=== PATIENT | female | born 1955 | race African-American/Black ===

== ENCOUNTER 2016-07-15 20:42 | Inpatient (IN) | payer MEDICARE ==
[~2016-07-15] VITALS: Ht 162.6 cm; Wt 54.9 kg
[2016-07-15] MEDS: IV NORMAL SALINE 1000ML BAG 1,000 ML IV SCH (02:00)
[~2016-07-15 20:42] MED LIST: ACET325T9 PO; AMLO10TA2 PO; AMLO5TAB4 PO; CEFP100T PO; CEFP200T PO; CHLO25TA4 PO; DOCU-27 PO; DOXY100T PO; DRON2.5C PO; DULO30CA43 PO; DULO60CA6 PO; Doxycycline Hyclate PO; FAMO20TA5 PO; FENT1PAT17 TD; FENT1PAT17 TP; FENT1PAT19 TD; FENT1PAT21 TD; FENT1PAT91 TD; FURO20TA3 PO; FURO40TA4 PO; Fentanyl TD; HYDR2TAB PO; HYDR4TAB PO; HYDR4TAB13 PO; HYOS0.12 PO; LEVO250T25 PO; LEVO750T31 PO; LEVO750T5 PO; LIDO35.4 TP; LORA-434 PO; LORA0.5T PO; METO10TA81 PO; ONDA4TAB10 PO; ONDA4TAB12 PO; ONDA8TAB9 PO; PANT40TA3 PO; PANT40TA5 PO; PHEN-373 PO; SERT50TA PO; SERT50TA8 PO; SIME180C4 PO; SIME80TA PO; SODI20VI2 IV; SULF1TAB24 PO; ZINC56.7 TP; ZOLP5TAB PO
[2016-07-15 21:48] LABS: BILIRUBIN,URINE NEGATIVE (NEG); GLUCOSE,URINE NEGATIVE (NEG); NITRITE,URINE POSITIVE (NEG); PROTEIN,URINE 30 mg/dL (NEG-TRACE); UROBILINOGEN,URINE 0.2 mg/dL (0.2 mg/dL)
[2016-07-15] MEDS: FENTANYL PF 100 MCG/2 ML VIAL. IV PRN (21:57)
[2016-07-15 21:59] LABS: BASO % 1 % (0-3); EOS % 6 % (0-3); HEMATOCRIT 33.7 % (36.0-47.0); HEMOGLOBIN 10.6 g/dL (12.0-15.5); LYMPH # 0.5 x10^3/uL (1.0-4.8); LYMPH % 14 % (24-48); MEAN CORPUSCULAR HEMOGLOBIN 25 pg (25-35); MEAN CORPUSCULAR HGB CONC 31 g/dL (31-37); MEAN CORPUSCULAR VOLUME 79 fL (79-100); MONO % 14 % (0-9); NEUT % 65 % (31-73); PLATELET COUNT 261 x10^3/uL (140-400); RED BLOOD COUNT 4.25 x10^6/uL (3.50-5.40); RED CELL DISTRIBUTION WIDTH 19.4 % (11.5-14.5); WHITE BLOOD COUNT 3.6 x10^3/uL (4.0-11.0)
[2016-07-15 22:00] LABS: BACTERIA,URINE MODERATE /HPF (0-FEW); RBC,URINE 0 /HPF (0-2); SQUAMOUS EPITHELIAL CELL,UR MOD /LPF; WBC,URINE >40 /HPF (0-4); YEAST,URINE PRESENT /HPF
[2016-07-15] MEDS ORDERED: PIPERACILLIN/TAZOBACTAM 4.5 GM in IV NORMAL SALINE 100ML 100 ML IV ONE (22:00)
[2016-07-15] MEDS ORDERED: IV NORMAL SALINE 1000ML BAG 1,000 ML IV ONE (22:00)
[2016-07-15] MEDS ORDERED: IV NORMAL SALINE 500ML BAG 500 ML IV ONE (22:00)
[2016-07-15 22:09] LABS: INR 1.3 (0.8-1.1); PROTHROMBIN TIME PATIENT 15.4 SEC (11.7-14.0)
[2016-07-15 22:14] LABS: ANION GAP 6 (6-14); BLOOD UREA NITROGEN 15 mg/dL (7-20); BUN/CREATININE RATIO 30 (6-20); CALCIUM 8.4 mg/dL (8.5-10.1); CARBON DIOXIDE 26 mmol/L (21-32); CHLORIDE 105 mmol/L (98-107); CREATININE 0.5 mg/dL (0.6-1.0); GFR 151.8; GLUCOSE 118 mg/dL (70-99); POTASSIUM 3.8 mmol/L (3.5-5.1); SODIUM 137 mmol/L (136-145)
[2016-07-15 22:20] LABS: ALBUMIN 2.2 g/dL (3.4-5.0); ALBUMIN/GLOBULIN RATIO 0.4 (1.0-1.7); ALK PHOS 112 U/L (46-116); AMYLASE 106 U/L (25-115); CREATINE KINASE 18 U/L (26-192); TOTAL BILIRUBIN 0.3 mg/dL (0.2-1.0); TOTAL PROTEIN 7.8 g/dL (6.4-8.2)
--- NOTE | 2016-07-15 22:25 | RAD ---
CT abdomen pelvis without contrast Indication: Abdominal pain. Axial imaging of the abdomen pelvis was performed without contrast. Patient reportedly has a severe iodine allergy. Comparison is made with prior CT from 12/22/2015. The prior report is not available for comparison. The lung bases are clear. Evaluation of the abdomen and pelvis is limited without intravenous contrast. No discrete liver mass is detected. The spleen is unremarkable. Gallbladder appears to be surgically absent. The pancreas is poorly visualized. No definite adrenal mass is seen. No renal calculi or hydronephrosis is seen. The aorta appears to be normal caliber. Postsurgical changes in the midline abdominal wall is noted. There are postsurgical changes involving multiple bowel loops in the central abdomen with clips and suture material present. There are numerous surgical clips in the pelvis. There is a paucity of intra-abdominal fat, making evaluation difficult. It is very difficult to separate small from large bowel. The overall degree of bowel distention appears to be similar to prior CT from last December. No free air is seen. No free fluid or fluid collection is identified. Bladder is unremarkable. Impression: Compromised study due to absence of intravenous and oral contrast. The overall appearance to the abdomen pelvis appears to be similar to the CT from December 22, 2015. No definite free air, free fluid or fluid collection is identified. No abnormal collections of gas are detected. Electronically signed by: Amanuel Carbajal MD (Jul 15, 2016 22:23:46)
[2016-07-15 22:33] LABS: ALT (SGPT) 10 U/L (14-59); AST (SGOT) 10 U/L (15-37)
[2016-07-15 22:35] LABS: % EOS 9 % (0-5); ANISOCYTOSIS SLIGHT; HYPOCHROMIA SLIGHT; PLT ESTIMATE ADEQUATE (ADEQUATE); POLYCHROMASIA SLIGHT; SPHEROCYTES OCC
--- NOTE | 2016-07-15 23:20 | PHYS DOC ---
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 Over the last few hours she's developed chills. Patient and family state that she had 101 fever prior to arrival was given Motrin and fever broke. She states the fever started yesterday. She states she was admitted about 3 weeks ago for similar symptoms. She states she recently had the flu. [] Review of Systems Review of Systems Constitutional: Denies fever or chills [] Eyes: Denies change in visual acuity, redness, or eye pain [] HENT: Denies nasal congestion or sore throat [] Respiratory: Denies cough or shortness of breath [] Cardiovascular: No additional information not addressed in HPI [] GI: Per history of present illness [] : Per history of present illness Musculoskeletal: Denies back pain or joint pain [] Integument: Denies rash or skin lesions [] Neurologic: Denies headache, focal weakness or sensory changes [] Endocrine: Denies polyuria or polydipsia [] Current Medications Current Medications Current Medications Medications (Trade) Dose Ordered Sig/Alex Start Time Stop Time Status Last Admin Dose Admin Acetaminophen (Tylenol) 650 mg PRN Q4HRS PRN 07/15/16 23:30 07/16/16 23:29 Fentanyl Citrate 50 mcg 50 mcg PRN Q2HR PRN 07/15/16 23:30 07/16/16 08:52 DC 07/16/16 08:10 50 MCG Ondansetron HCl (Zofran) 4 mg PRN Q8HRS PRN 07/15/16 23:30 07/16/16 08:52 DC Piperacillin Sod/ Tazobactam Sod 4.5 gm/Sodium Chloride 100 ml @ 200 mls/hr 1X ONCE 07/15/16 22:00 07/15/16 22:29 DC 07/15/16 22:56 200 MLS/HR Sodium Chloride (Iv Sodium Chloride 0.9% 500ml Bag) 500 ml @ 500 mls/hr 1X ONCE 07/15/16 22:00 07/15/16 22:59 DC 07/15/16 22:00 500 MLS/HR Sodium Chloride (Iv Sodium Chloride 0.9% 1000ml Bag) 1,000 ml @ 150 mls/hr Q6H40M 07/15/16 23:45 07/16/16 08:52 DC 07/15/16 02:00 150 MLS/HR Allergies Allergies Allergies Coded Allergies Type Severity Reaction Last Updated Verified Iodinated Contrast Media - Oral and Allergy Severe Anaphylaxis 12/05/15 Yes vancomycin Allergy Severe Swelling 12/05/15 Yes adhesive tape Allergy Intermediate Rash 12/05/15 Yes silver Allergy Intermediate Rash, Tegaderm film, can have on abd but no where else 12/05/15 Yes codeine Adverse Reaction Severe Nausea and Vomiting 12/11/15 Yes Physical Exam Physical Exam Constitutional: Well developed, well nourished, moderate distress, acutely ill. [] HENT: Normocephalic, atraumatic, bilateral external ears normal, oropharynx moist, no oral exudates, nose normal. [] Eyes: PERRLA, EOMI, conjunctiva normal, no discharge. [] Neck: Normal range of motion, no tenderness, supple, no stridor. [] Cardiovascular:Heart rate regular rhythm, no murmur [] Lungs & Thorax: Bilateral breath sounds clear to auscultation [] Abdomen: Bowel sounds normal, soft, no tenderness, no masses, no pulsatile masses. [] Skin: Warm, dry, no erythema, no rash. [] Back: No tenderness, no CVA tenderness. [] Extremities: No tenderness, no cyanosis, no clubbing, ROM intact, no edema. [] Neurologic: Alert and oriented X 3, normal motor function, normal sensory function, no focal deficits noted. [] Psychologic: Very anxious Current Patient Data Vital Signs Vital Signs Date Time Temp Pulse Resp B/P Pulse Ox O2 Delivery O2 Flow Rate FiO2 07/15/16 23:00 98.6 92 20 150/67 100 Room Air 98.6 Lab Values Laboratory Tests Test 07/15/16 21:20 07/15/16 21:50 Urine Collection Type Unknown Urine Color Yellow Urine Clarity Cloudy Urine pH 6.0 Urine Specific [place] 1.025 Urine Protein 30mg/dL (NEG-TRACE) Urine Glucose (UA) Negativemg/dL (NEG) Urine Ketones (Stick) Negativemg/dL (NEG) Urine Blood Moderate (NEG) Urine Nitrite Positive (NEG) Urine Bilirubin Negative (NEG) Urine Urobilinogen Dipstick 0.2mg/dL (0.2 mg/dL) Urine Leukocyte Esterase Large (NEG) Urine RBC 0/HPF (0-2) Urine WBC >40/HPF (0-4) Urine Squamous Epithelial Cells Mod/LPF Urine Bacteria Moderate/HPF (0-FEW) Urine Mucus Mod/LPF Urine Yeast Present/HPF White Blood Count 3.6x10^3/uL (4.0-11.0) L Red Blood Count 4.25x10^6/uL (3.50-5.40) Hemoglobin 10.6g/dL (12.0-15.5) L Hematocrit 33.7% (36.0-47.0) L Mean Corpuscular Volume 79fL (79-100) Mean Corpuscular Hemoglobin 25pg (25-35) Mean Corpuscular Hemoglobin Concent 31g/dL (31-37) Red Cell Distribution Width 19.4% (11.5-14.5) H Platelet Count 261x10^3/uL (140-400) Neutrophils (%) (Auto) 65% (31-73) Lymphocytes (%) (Auto) 14% (24-48) L Monocytes (%) (Auto) 14% (0-9) H Eosinophils (%) (Auto) 6% (0-3) H Basophils (%) (Auto) 1% (0-3) Neutrophils # (Auto) 2.3x10^3uL (1.8-7.7) Lymphocytes # (Auto) 0.5x10^3/uL (1.0-4.8) L Monocytes # (Auto) 0.5x10^3/uL (0.0-1.1) Eosinophils # (Auto) 0.2x10^3/uL (0.0-0.7) Basophils # (Auto) 0.0x10^3/uL (0.0-0.2) Segmented Neutrophils % 53% (35-66) Band Neutrophils % 9% (0-9) Lymphocytes % 15% (24-48) L Monocytes % 12% (0-10) H Eosinophils % 9% (0-5) H Metamyelocytes % 1% (0-0) H Myelocytes % 1% (0-0) H Platelet Estimate Adequate (ADEQUATE) Polychromasia Slight Hypochromasia Slight Anisocytosis Slight Spherocytes Occ Prothrombin Time 15.4SEC (11.7-14.0) H Prothrombin Time INR 1.3 (0.8-1.1) H PTT 39SEC (24-38) H Sodium Level 137mmol/L (136-145) Potassium Level 3.8mmol/L (3.5-5.1) Chloride Level 105mmol/L (98-107) Carbon Dioxide Level 26mmol/L (21-32) Anion Gap 6 (6-14) Blood Urea Nitrogen 15mg/dL (7-20) Creatinine 0.5mg/dL (0.6-1.0) L Estimated GFR (Cockcroft-Gault) 151.8 BUN/Creatinine Ratio 30 (6-20) H Glucose Level 118mg/dL (70-99) H Lactic Acid Level 1.2mmol/L (0.4-2.0) Calcium Level 8.4mg/dL (8.5-10.1) L Total Bilirubin 0.3mg/dL (0.2-1.0) Aspartate Amino Transferase (AST) 10U/L (15-37) L Alanine Aminotransferase (ALT) 10U/L (14-59) L Alkaline Phosphatase 112U/L (46-116) Creatine Kinase 18U/L (26-192) L Total Protein 7.8g/dL (6.4-8.2) Albumin 2.2g/dL (3.4-5.0) L Albumin/Globulin Ratio 0.4 (1.0-1.7) L Amylase Level 106U/L (25-115) Lipase 129U/L (73-393) Procalcitonin < 0.05ng/mL (0.00-0.10) Laboratory Tests 07/15/16 21:50 Laboratory Tests 07/15/16 21:50 Microbiology 07/15/16 Blood Culture - Preliminary, Resulted NO GROWTH AFTER 1 DAY EKG EKG [] Radiology/Procedures Radiology/Procedures [] Impressions: PROCEDURE: ABDOMEN PELVIS WO CONTRAST CT abdomen pelvis without contrast Indication: Abdominal pain. Axial imaging of the abdomen pelvis was performed without contrast. Patient reportedly has a severe iodine allergy. Comparison is made with prior CT from 12/22/2015. The prior report is not available for comparison. The lung bases are clear. Evaluation of the abdomen and pelvis is limited without intravenous contrast. No discrete liver mass is detected. The spleen is unremarkable. Gallbladder appears to be surgically absent. The pancreas is poorly visualized. No definite adrenal mass is seen. No renal calculi or hydronephrosis is seen. The aorta appears to be normal caliber. Postsurgical changes in the midline abdominal wall is noted. There are postsurgical changes involving multiple bowel loops in the central abdomen with clips and suture material present. There are numerous surgical clips in the pelvis. There is a paucity of intra-abdominal fat, making evaluation difficult. It is very difficult to separate small from large bowel. The overall degree of bowel distention appears to be similar to prior CT from last December. No free air is seen. No free fluid or fluid collection is identified. Bladder is unremarkable. Impression: Compromised study due to absence of intravenous and oral contrast. The overall appearance to the abdomen pelvis appears to be similar to the CT from December 22, 2015. No definite free air, free fluid or fluid collection is identified. No abnormal collections of gas are detected. Course & Med Decision Making Course & Med Decision Making Pertinent Labs and Imaging studies reviewed. (See chart for details) CRITICAL CARE time was 30 minutes - time exclusive of any procedures performed. Care included medical management, x-ray/lab interpretation, discussions with the patient and their family as well as appropriate medical consultants. ED course: Evaluation reveals a acute on chronically ill female with abdominal pain and dysuria. CT scan was unchanged from that a year ago. Patient was given IV fluids and IV Rocephin and pain medication which did help alleviate her symptoms. However given her degree of pain that was not completely resolved in the department feel the patient needs inpatient hospitalization. Dragon Disclaimer Dragon Disclaimer This electronic medical record was generated, in whole or in part, using a voice recognition dictation system. Departure Departure Impression: Primary Impression: Urinary tract infection Additional Impressions: Enterocutaneous fistula Abdominal pain Disposition: ADMITTED INPATIENT Condition: STABLE Referrals: BENITA LUTZ MD (PCP) Problem Qualifiers Primary Impression: Urinary tract infection Urinary tract infection type: site unspecified Hematuria presence: without hematuria Qualified Code: N39.0 - Urinary tract infection, site not specified Additional Impressions: Abdominal pain Abdominal location: generalized Qualified Code: R10.84 - Generalized abdominal pain ERNESTO PETTY DO Jul 15, 2016 23:20
[2016-07-15] MEDS ORDERED: ONDANSETRON PF 4 MG/2 ML VIAL. IV PRN (23:30)
[2016-07-15] MEDS ORDERED: ACETAMINOPHEN 325 MG TABLET. PO PRN (23:30)
[2016-07-16] VITALS (7 sets, daily range): BP systolic 109–179; BP diastolic 48–87
--- NOTE | 2016-07-16 00:20 | ACF ---
Admission Forms Criteria ABDOMINAL PAIN Clinical Indications for Admission to Inpatient Care (Place 'X' for any and all applicable criteria): Admission is indicated for ANY ONE of the following(1)(2)(3)(4)(5): [X]I. Inpatient admission required rather than observation care (Also use Abdominal Pain: Observation Care, as appropriate) because of ANY ONE of the following: [X]a) Severe pain requiring acute inpatient management [ ]b) Identification of etiology/finding that requires inpatient care (eg, aortic dissection, free air) [ ]c) Absent bowel sounds with complete ileus(6) [ ]d) Suspected toxic megacolon [ ]e) Severe electrolyte abnormalities requiring inpatient care [ ]f) High fever or infection requiring inpatient admission as indicated by ANY ONE of following(7)(8): [ ] i) Appropriate outpatient or observational care antimicrobial treatment unavailable, not effective, or not feasible [ ] ii) Documented bacteremia [ ] iii) Temperature > 104.9 degrees F (oral) [ ] iv) T >103.1 F (oral) or < 96.8 F(rectal) that does not respond to all emergency treatment measures [ ]g) Signs of intestinal obstruction [B] [ ]h) Hemodynamic instability [ ]i) IV fluid to replace significant ongoing losses (greater than 3 L/m2 per day) (12)(13) [ ]j) Percutaneous or open drainage (eg, abscess, biliary tract ) procedures [ ]k) Parenteral nutrition regimen that must be implemented on inpatient basis [ ]l) Other condition,treatment or monitoring requiring inpatient admission. [ ]II. Peritoneal signs present [ ]III. Surgery needed that cannot be performed on an ambulatory basis. [ ]IV. Evaluation requires patient to not eat or drink for extended period ( eg, more than 24 hours). [ ]V. Contraindications and/or Inappropriate clinical situations for Observational Care in patients with abdominal pain, when ANY ONE of the following is required: [ ]a) Thorough evaluation is required to prevent catastrophic events due to delays in diagnosing (e.g.Mesenteric ischemia) 1,3 [ ]b) Patient with severe pathology or with chronic symptoms unlikely to improve in the ED stay (3) [ ]. General contraindications and/or Inappropriate clinical situations for Observational Care in patients with abdominal pain, when ANY ONE of the following is required: [ ]a) Prediction of prolongation of LOS based on ANY ONE of the following may be considered as a contraindication for observational care 2, 3, 4, 5, 6, 7, 8, 9, 10, 11 [ ]i) Age > 65 yrs. [ ]ii) Patient arriving by ambulance [ ]iii) Patient with high acuity [ ]iv) Patient requiring vital sign monitoring [ ]v) Patient on IV medication [ ]b) Systolic blood pressures 180mmHg 3,12 [ ]c) Patient with altered mental status including delirium and other alteration of consciousness, (3) [ ]d) Patient whose discharge disposition will be to a penitentiary home or rehabilitation home should not be managed in Emergency Department Observation Unit. CMS rule requires 3 days hospital stay before such placement.3,13 [ ]e) Patient with failure to thrive due to broad array of etiologies 3,16,17 [ ]f) Inability to ambulate 3,14 Extended stay beyond goal length of stay may be needed for(2)(3): [ ]a) Persistent abdominal pain with suspected intra-abdominal process [ ]b) Diagnosed condition requiring continued stay (e.g., pancreatitis, complicated diverticulitis) [ ]c) Surgery (e.g., colectomy) The original [facility] content created by [employer] has been revised. The portions of the content which have been revised are identified through the use of italic text or in bold, and [facility] has neither reviewed nor approved the modified material.All other unmodified content is copyright [facility]. Please see references footnoted in the original [facility] edition 2016 Admission Criteria Met?: Yes MEKA VELIZ Jul 16, 2016 00:20
[2016-07-16] MEDS: FENTANYL PF 100 MCG/2 ML VIAL. IV PRN ×5 (00:30→08:10)
[2016-07-16] MEDS ORDERED: INFLUENZA VAX SCREEN BY RX. MC PRN (03:00)
[2016-07-16] MEDS: IV NORMAL SALINE 1000ML BAG 1,000 ML IV SCH (06:25)
--- NOTE | 2016-07-16 07:50 | RAD ---
Indication: Fever and cough for one day. Technique: Upright portable chest radiograph was obtained. Comparison is from June 24, 2016. Findings: Right PICC line is in place. The lungs are clear. The heart is not enlarged and there is no heart failure. There is minimal atheromatous disease in the thoracic aorta. Bony structures are intact. Impression: No acute thoracic findings.
--- NOTE | 2016-07-16 08:37 | PDOC ---
Provider Note Provider Note history and physical dictated # [id number] BENITA LUTZ MD Jul 16, 2016 08:37
[2016-07-16] MEDS ORDERED: POTASSIUM CL 20MEQ D5-0.45NACL 1,000 ML IV SCH (09:30)
--- NOTE | 2016-07-16 09:38 | PDOC ---
Infectious Disease Note Subjective Subjective Pt known to us, returned with abd pain, fever and chills, painful urination ROS ROS GEN: fevers, chills, sweats HEENT: Denies blurred vision, sore throat CV: Denies chest pain RESP: Denies shortness of air, cough GI: Denies n/v/d NEURO: Denies confusion, dizziness MSK: Denies weakness, joint pain/swelling Vital Sign Vital Signs Vital Signs Date Time Temp Pulse Resp B/P Pulse Ox O2 Delivery O2 Flow Rate FiO2 07/16/16 08:10 99 Room Air 07/16/16 07:00 98.7 91 18 109/62 98.7 Physical Exam PHYSICAL EXAM GENERAL: NAD, Alert HEENT: PERRL, OC/OP NECK: Supple, no JVD, no LN LUNGS: Clear HEART: S1S2, no gallop, no murmur ABD: Soft, NT, no organomegaly, no rebound,, EC fistula with extensive excoriation EXT: No edema, no cyanosis FELT PAD CUTTER: Alert, oriented x 3, no focal neurologic deficit SKIN: No rash IV: line ok Labs Lab Laboratory Tests Test 07/15/16 21:20 07/15/16 21:50 Urine Collection Type Unknown Urine Color Yellow Urine Clarity Cloudy Urine pH 6.0 Urine Specific [place] 1.025 Urine Protein 30mg/dL (NEG-TRACE) Urine Glucose (UA) Negativemg/dL (NEG) Urine Ketones (Stick) Negativemg/dL (NEG) Urine Blood Moderate (NEG) Urine Nitrite Positive (NEG) Urine Bilirubin Negative (NEG) Urine Urobilinogen Dipstick 0.2mg/dL (0.2 mg/dL) Urine Leukocyte Esterase Large (NEG) Urine RBC 0/HPF (0-2) Urine WBC >40/HPF (0-4) Urine Squamous Epithelial Cells Mod/LPF Urine Bacteria Moderate/HPF (0-FEW) Urine Mucus Mod/LPF Urine Yeast Present/HPF White Blood Count 3.6x10^3/uL (4.0-11.0) Red Blood Count 4.25x10^6/uL (3.50-5.40) Hemoglobin 10.6g/dL (12.0-15.5) Hematocrit 33.7% (36.0-47.0) Mean Corpuscular Volume 79fL (79-100) Mean Corpuscular Hemoglobin 25pg (25-35) Mean Corpuscular Hemoglobin Concent 31g/dL (31-37) Red Cell Distribution Width 19.4% (11.5-14.5) Platelet Count 261x10^3/uL (140-400) Neutrophils (%) (Auto) 65% (31-73) Lymphocytes (%) (Auto) 14% (24-48) Monocytes (%) (Auto) 14% (0-9) Eosinophils (%) (Auto) 6% (0-3) Basophils (%) (Auto) 1% (0-3) Neutrophils # (Auto) 2.3x10^3uL (1.8-7.7) Lymphocytes # (Auto) 0.5x10^3/uL (1.0-4.8) Monocytes # (Auto) 0.5x10^3/uL (0.0-1.1) Eosinophils # (Auto) 0.2x10^3/uL (0.0-0.7) Basophils # (Auto) 0.0x10^3/uL (0.0-0.2) Segmented Neutrophils % 53% (35-66) Band Neutrophils % 9% (0-9) Lymphocytes % 15% (24-48) Monocytes % 12% (0-10) Eosinophils % 9% (0-5) Metamyelocytes % 1% (0-0) Myelocytes % 1% (0-0) Platelet Estimate Adequate (ADEQUATE) Polychromasia Slight Hypochromasia Slight Anisocytosis Slight Spherocytes Occ Prothrombin Time 15.4SEC (11.7-14.0) Prothromb Time International Ratio 1.3 (0.8-1.1) Activated Partial Thromboplast Time 39SEC (24-38) Sodium Level 137mmol/L (136-145) Potassium Level 3.8mmol/L (3.5-5.1) Chloride Level 105mmol/L (98-107) Carbon Dioxide Level 26mmol/L (21-32) Anion Gap 6 (6-14) Blood Urea Nitrogen 15mg/dL (7-20) Creatinine 0.5mg/dL (0.6-1.0) Estimated GFR (Cockcroft-Gault) 151.8 BUN/Creatinine Ratio 30 (6-20) Glucose Level 118mg/dL (70-99) Lactic Acid Level 1.2mmol/L (0.4-2.0) Calcium Level 8.4mg/dL (8.5-10.1) Total Bilirubin 0.3mg/dL (0.2-1.0) Aspartate Amino Transf (AST/SGOT) 10U/L (15-37) Alanine Aminotransferase (ALT/SGPT) 10U/L (14-59) Alkaline Phosphatase 112U/L (46-116) Creatine Kinase 18U/L (26-192) Total Protein 7.8g/dL (6.4-8.2) Albumin 2.2g/dL (3.4-5.0) Albumin/Globulin Ratio 0.4 (1.0-1.7) Amylase Level 106U/L (25-115) Lipase 129U/L (73-393) Procalcitonin < 0.05ng/mL (0.00-0.10) Objective Assessment Fever and chills EC fistula Enterovesicular fistula Abdominal excoriation Plan Plan of Care zyvox and cefepime diflucan d/w JOSSY Szymanski MD Jul 16, 2016 09:38
[2016-07-16] MEDS: PANTOPRAZOLE 40 MG TABLET. PO SCH (10:54)
[2016-07-16] MEDS: PHENAZOPYRIDINE 200 MG TABLET. PO SCH ×3 (10:54→21:01)
[2016-07-16] MEDS: HYDROMORPHONE 2 MG/ML VIAL. IV PRN ×3 (10:55→21:02)
[2016-07-16] MEDS: PIPERACILLIN/TAZOBACTAM 3.375 GM in IV NORMAL SALINE 50ML 50 ML IV SCH ×2 (10:56→17:11)
--- NOTE | 2016-07-16 12:03 | HP ---
ADMIT DATE: 07/16/2016 LOCATION: She is in room 669. HISTORY OF PRESENT ILLNESS: The patient is a 61-year-old female with an enterocutaneous fistula and enterovesical fistula, maintained on home TPN via a PICC line, who has anemia of chronic disease and was admitted to [facility] through the Emergency Room on 07/15/2016 with the onset of fever around 4:00 in the afternoon yesterday. She also noted some dysuria and some pain in her lower abdomen with urinating. Her temperature spiked to 101.5 degrees. She took ibuprofen and Tylenol and came to the Emergency Room for further evaluation where a CAT scan of the abdomen and pelvis was done which showed no acute abnormality. Urinalysis showed pyuria and she was started on IV antibiotics. She still complains of dysuria and lower abdominal discomfort when urinating. ALLERGIES AND INTOLERANCES: Include the adhesive tape, IV iodine, codeine, silver and IV vancomycin. MEDICATIONS: Prior to admission include, she uses lidocaine 5% ointment b.i.d. followed by zinc oxide 20% ointment b.i.d. to her abdominal wall, lorazepam 0.5 mg b.i.d. p.r.n., Protonix 40 mg every day and also takes sertraline 100 mg everyday, Ambien 5 mg at bedtime p.r.n. and she is maintained on TPN at 80 mL an hour. PAST HISTORY: Significant for hospitalization, at which time she was dismissed on 06/29/2016 with sepsis and she had an E. coli urinary tract infection, influenza type B at that time. She has an enterocutaneous fistula, enterovesical fistula. She has [id number] protein calorie malnutrition. She has a history of an appendectomy, cholecystectomy, tonsillectomy, jejunostomy in the past and hysterectomy. She has had 5 abdominal fistula repairs, all of which have failed. She has a history of depression and diverticulosis and recurrent sepsis. She is maintained on home TPN via PICC line. SOCIAL HISTORY: She does not drink alcohol nor does she smoke cigarettes. She is followed by home health. FAMILY HISTORY: Noncontributory. REVIEW OF SYSTEMS: GENERAL: She had the fever and chills. CARDIOVASCULAR: No chest pain. PULMONARY: No cough or shortness of breath. GASTROINTESTINAL: No constipation. GENITOURINARY: She has dysuria, bladder spasms. ENDOCRINE: No diabetes mellitus. SKIN: No rashes. She does have an enterocutaneous fistula. The rest of systems reviewed are negative except as stated in the history of present illness. PHYSICAL EXAMINATION: VITAL SIGNS: Temperature is 98.7 degrees, pulse 91, respiratory rate 18, blood pressure 109/62, oxygen saturation 98% on room air. HEENT: Eyes: Gaze is conjugate. Extraocular muscles are intact. Mouth: Tongue is midline. NECK: There is no cervical lymphadenopathy or thyroid enlargement. She got a PICC line in the right side. HEART: Reveals an S1, S2. There is no S3 or murmur. LUNGS: Clear. ABDOMEN: Soft. She got enterocutaneous fistula drainage on the abdominal wall with some chronic excoriation of the abdominal wall. It is nontender and not distended. EXTREMITIES: Lower extremities without edema. SKIN: No rashes. NEUROLOGIC: Revealed no focal weakness of the extremities or facial asymmetry. LABORATORY DATA: White count 3.6, hemoglobin 10.6, platelet count ,000, 65 polys and 14 lymphocytes. INR 1.3, PTT of 39. Sodium 137, potassium 3.8, chloride 105, total CO2 of 26, BUN of 15, creatinine 0.5, blood sugar 118. The liver function tests were normal. Albumin 2.2. Amylase and lipase were normal. Procalcitonin was less than 0.05. Urinalysis showed greater than 40 white cells and no red blood cells. She also had a chest x-ray done which showed no acute abnormality and a right-sided PICC line was noted. She also had a CAT scan of the abdomen and pelvis done, which showed no acute abnormality with post-surgical changes, no evidence of bowel obstruction and no abnormal fluid collection or gas collections. IMPRESSION: 1. Urinary tract infection. 2. Bladder spasms. 3. Fever. 4. Enterocutaneous fistula. 5. Enterovesical fistula. 6. Anemia of chronic disease. 7. Moderately severe protein calorie malnutrition. PLAN: At this time is to consult Dr. Garcia Suggs for infectious disease. Wait for the results of blood and urine cultures. She got a dose of IV Zosyn in the Emergency Room and we will switch her to cefepime 1 gram IV q. 12 hours instead of the Zosyn. We will also repeat her labs tomorrow. Start her on TPN, start her some Dilaudid 4 mg IV every 6 hours p.r.n. for the pain and start her on some Pyridium for the dysuria as well as Levsin for the bladder spasms on schedule. Again, start her on her TPN. BENITA LUTZ MD DR: NABILA/jd JOB#: [id number] / [id number]
[2016-07-16] MEDS: TPN PER PHARMACY MC PRN (12:42)
[2016-07-16] MEDS: HYOSCYAMINE 0.125 MG TAB.RAPDIS PO SCH ×2 (12:43→17:11)
[2016-07-16] MEDS: FLUCONAZOLE 200MG/100ML PREMIX 100 ML IV SCH (13:51)
[2016-07-16] MEDS: ONDANSETRON PF 4 MG/2 ML VIAL. IV PRN (17:11)
[2016-07-16] MEDS: DIPHENHYDRAMINE HCL 25 MG CAPSULE PO PRN (17:56)
[2016-07-16] MEDS: ZOLPIDEM 5 MG TABLET. PO PRN (21:01)
[2016-07-16] MEDS ORDERED: [UNRECOGNIZED DRUG - OTHER] IV SCH ×12 (22:00)
[2016-07-16] MEDS ORDERED: AMINO ACID IV SCH ×12 (22:00)
[2016-07-16] MEDS ORDERED: TOTAL PARENTERAL NUTRITION IV SCH ×24 (22:00)
[2016-07-16] MEDS ORDERED: DEXTROSE 70% IV SCH ×24 (22:00)
[2016-07-16] MEDS ORDERED: AMINO ACIDS IV SCH ×12 (22:00)
[2016-07-16] MEDS ORDERED: [UNRECOGNIZED DRUG - OTHER] IV SCH ×12 (22:00)
[2016-07-17] VITALS (7 sets, daily range): BP systolic 100–175; BP diastolic 60–95
[2016-07-17] MEDS: HYOSCYAMINE 0.125 MG TAB.RAPDIS PO SCH ×5 (00:45→23:59)
[2016-07-17] MEDS: PIPERACILLIN/TAZOBACTAM 3.375 GM in IV NORMAL SALINE 50ML 50 ML IV SCH ×4 (00:45→18:23)
[2016-07-17] MEDS: LORAZEPAM 0.5 MG TABLET. PO PRN ×3 (00:45→19:07)
[2016-07-17] MEDS: HYDROMORPHONE 2 MG/ML VIAL. IV PRN ×6 (01:19→23:38)
[2016-07-17 06:12] LABS: BASO % 1 % (0-3); EOS % 4 % (0-3); HEMATOCRIT 36.2 % (36.0-47.0); HEMOGLOBIN 11.2 g/dL (12.0-15.5); LYMPH # 0.4 x10^3/uL (1.0-4.8); LYMPH % 9 % (24-48); MEAN CORPUSCULAR HEMOGLOBIN 25 pg (25-35); MEAN CORPUSCULAR HGB CONC 31 g/dL (31-37); MEAN CORPUSCULAR VOLUME 79 fL (79-100); MONO % 10 % (0-9); NEUT % 77 % (31-73); PLATELET COUNT 222 x10^3/uL (140-400); RED BLOOD COUNT 4.55 x10^6/uL (3.50-5.40); RED CELL DISTRIBUTION WIDTH 18.9 % (11.5-14.5); WHITE BLOOD COUNT 4.5 x10^3/uL (4.0-11.0)
[2016-07-17 06:43] LABS: CALCIUM 8.7 mg/dL (8.5-10.1); CREATININE 0.7 mg/dL (0.6-1.0); GFR 102.9; MAGNESIUM 1.9 mg/dL (1.8-2.4); POTASSIUM 4.2 mmol/L (3.5-5.1)
[2016-07-17] MEDS: PANTOPRAZOLE 40 MG TABLET. PO SCH (08:05)
[2016-07-17] MEDS: PHENAZOPYRIDINE 200 MG TABLET. PO SCH ×3 (08:05→20:43)
--- NOTE | 2016-07-17 08:16 | PDOC ---
PROGRESS NOTES Subjective Subjective feels better. still has some discomfort with voiding. temp 99.2. lab reviewed. blood cultures negative so far. urine culture pending. started TPN. Objective Objective Vital Signs Date Time Temp Pulse Resp B/P Pulse Ox O2 Delivery O2 Flow Rate FiO2 07/17/16 07:20 102 18 118/60 95 Room Air 07/17/16 03:00 99.2 99.2 Intake and Output 07/17/16 07:00 Intake Total 1650 ml Output Total 600 ml Balance 1050 ml Intake Oral 1450 ml IV Total 200 ml Urine/Stool Mix 600 ml # Voids 6 # Bowel Movements 6 Physical Exam Abdomen: Soft, Other (enterocutaneous fistula with yellow drainage) Heart: Regular rate, Normal S1, Normal S2 Extremities: No edema General: Alert HEENT: Atraumatic Lungs: Clear to auscultation Neuro: Normal speech Psych/Mental Status: Mental status NL Skin: No rashes Assessment Assessment Problems Medical Problems:1. Urinary tract infection. 2. Bladder spasms. 3. Fever.better 4. Enterocutaneous fistula. 5. Enterovesical fistula. 6. Anemia of chronic disease. 7. Moderately severe protein calorie malnutrition. (1) Abdominal pain Status: Acute (2) Enterocutaneous fistula Status: Acute (3) Sepsis Status: Acute (4) Urinary tract infection Status: Acute (5) UTI (urinary tract infection) Status: Acute Plan Plan of Care continue iv zyvox adn zosyn awailt blood and urine cultures continue TPN continue pyridium and levsin iv dilaudid prn Comment Review of Relevant I have reviewed the following items lucila (where applicable) has been applied. Labs Laboratory Tests Test 07/15/16 21:20 07/15/16 21:50 07/17/16 06:00 Urine Collection Type Unknown Urine Color Yellow Urine Clarity Cloudy Urine pH 6.0 Urine Specific [place] 1.025 Urine Protein 30mg/dL (NEG-TRACE) Urine Glucose (UA) Negativemg/dL (NEG) Urine Ketones (Stick) Negativemg/dL (NEG) Urine Blood Moderate (NEG) Urine Nitrite Positive (NEG) Urine Bilirubin Negative (NEG) Urine Urobilinogen Dipstick 0.2mg/dL (0.2 mg/dL) Urine Leukocyte Esterase Large (NEG) Urine RBC 0/HPF (0-2) Urine WBC >40/HPF (0-4) Urine Squamous Epithelial Cells Mod/LPF Urine Bacteria Moderate/HPF (0-FEW) Urine Mucus Mod/LPF Urine Yeast Present/HPF White Blood Count 3.6x10^3/uL (4.0-11.0) 4.5x10^3/uL (4.0-11.0) Red Blood Count 4.25x10^6/uL (3.50-5.40) 4.55x10^6/uL (3.50-5.40) Hemoglobin 10.6g/dL (12.0-15.5) 11.2g/dL (12.0-15.5) Hematocrit 33.7% (36.0-47.0) 36.2% (36.0-47.0) Mean Corpuscular Volume 79fL (79-100) 79fL (79-100) Mean Corpuscular Hemoglobin 25pg (25-35) 25pg (25-35) Mean Corpuscular Hemoglobin Concent 31g/dL (31-37) 31g/dL (31-37) Red Cell Distribution Width 19.4% (11.5-14.5) 18.9% (11.5-14.5) Platelet Count 261x10^3/uL (140-400) 222x10^3/uL (140-400) Neutrophils (%) (Auto) 65% (31-73) 77% (31-73) Lymphocytes (%) (Auto) 14% (24-48) 9% (24-48) Monocytes (%) (Auto) 14% (0-9) 10% (0-9) Eosinophils (%) (Auto) 6% (0-3) 4% (0-3) Basophils (%) (Auto) 1% (0-3) 1% (0-3) Neutrophils # (Auto) 2.3x10^3uL (1.8-7.7) 3.5x10^3uL (1.8-7.7) Lymphocytes # (Auto) 0.5x10^3/uL (1.0-4.8) 0.4x10^3/uL (1.0-4.8) Monocytes # (Auto) 0.5x10^3/uL (0.0-1.1) 0.4x10^3/uL (0.0-1.1) Eosinophils # (Auto) 0.2x10^3/uL (0.0-0.7) 0.2x10^3/uL (0.0-0.7) Basophils # (Auto) 0.0x10^3/uL (0.0-0.2) 0.0x10^3/uL (0.0-0.2) Segmented Neutrophils % 53% (35-66) Band Neutrophils % 9% (0-9) Lymphocytes % 15% (24-48) Monocytes % 12% (0-10) Eosinophils % 9% (0-5) Metamyelocytes % 1% (0-0) Myelocytes % 1% (0-0) Platelet Estimate Adequate (ADEQUATE) Polychromasia Slight Hypochromasia Slight Anisocytosis Slight Spherocytes Occ Prothrombin Time 15.4SEC (11.7-14.0) Prothromb Time International Ratio 1.3 (0.8-1.1) Activated Partial Thromboplast Time 39SEC (24-38) Sodium Level 137mmol/L (136-145) 136mmol/L (136-145) Potassium Level 3.8mmol/L (3.5-5.1) 4.2mmol/L (3.5-5.1) Chloride Level 105mmol/L (98-107) 105mmol/L (98-107) Carbon Dioxide Level 26mmol/L (21-32) 23mmol/L (21-32) Anion Gap 6 (6-14) 8 (6-14) Blood Urea Nitrogen 15mg/dL (7-20) 12mg/dL (7-20) Creatinine 0.5mg/dL (0.6-1.0) 0.7mg/dL (0.6-1.0) Estimated GFR (Cockcroft-Gault) 151.8 102.9 BUN/Creatinine Ratio 30 (6-20) Glucose Level 118mg/dL (70-99) 114mg/dL (70-99) Lactic Acid Level 1.2mmol/L (0.4-2.0) 1.3mmol/L (0.4-2.0) Calcium Level 8.4mg/dL (8.5-10.1) 8.7mg/dL (8.5-10.1) Total Bilirubin 0.3mg/dL (0.2-1.0) Aspartate Amino Transf (AST/SGOT) 10U/L (15-37) Alanine Aminotransferase (ALT/SGPT) 10U/L (14-59) Alkaline Phosphatase 112U/L (46-116) Creatine Kinase 18U/L (26-192) Total Protein 7.8g/dL (6.4-8.2) Albumin 2.2g/dL (3.4-5.0) Albumin/Globulin Ratio 0.4 (1.0-1.7) Amylase Level 106U/L (25-115) Lipase 129U/L (73-393) Procalcitonin < 0.05ng/mL (0.00-0.10) Phosphorus Level 3.8mg/dL (2.6-4.7) Magnesium Level 1.9mg/dL (1.8-2.4) Laboratory Tests Test 07/17/16 06:00 White Blood Count 4.5x10^3/uL (4.0-11.0) Red Blood Count 4.55x10^6/uL (3.50-5.40) Hemoglobin 11.2g/dL (12.0-15.5) Hematocrit 36.2% (36.0-47.0) Mean Corpuscular Volume 79fL (79-100) Mean Corpuscular Hemoglobin 25pg (25-35) Mean Corpuscular Hemoglobin Concent 31g/dL (31-37) Red Cell Distribution Width 18.9% (11.5-14.5) Platelet Count 222x10^3/uL (140-400) Neutrophils (%) (Auto) 77% (31-73) Lymphocytes (%) (Auto) 9% (24-48) Monocytes (%) (Auto) 10% (0-9) Eosinophils (%) (Auto) 4% (0-3) Basophils (%) (Auto) 1% (0-3) Neutrophils # (Auto) 3.5x10^3uL (1.8-7.7) Lymphocytes # (Auto) 0.4x10^3/uL (1.0-4.8) Monocytes # (Auto) 0.4x10^3/uL (0.0-1.1) Eosinophils # (Auto) 0.2x10^3/uL (0.0-0.7) Basophils # (Auto) 0.0x10^3/uL (0.0-0.2) Sodium Level 136mmol/L (136-145) Potassium Level 4.2mmol/L (3.5-5.1) Chloride Level 105mmol/L (98-107) Carbon Dioxide Level 23mmol/L (21-32) Anion Gap 8 (6-14) Blood Urea Nitrogen 12mg/dL (7-20) Creatinine 0.7mg/dL (0.6-1.0) Estimated GFR (Cockcroft-Gault) 102.9 Glucose Level 114mg/dL (70-99) Lactic Acid Level 1.3mmol/L (0.4-2.0) Calcium Level 8.7mg/dL (8.5-10.1) Phosphorus Level 3.8mg/dL (2.6-4.7) Magnesium Level 1.9mg/dL (1.8-2.4) Microbiology 07/15/16 Blood Culture - Preliminary, Resulted NO GROWTH AFTER 1 DAY Medications Current Medications Piperacillin Sod/ Tazobactam Sod/ Sodium Chloride (Zosyn/Iv Sodium Chloride 0.9 % 100ml) 100 ml @ 200 mls/hr 1X ONCE IV Last administered on 07/15/16 22:56; Start 07/15/16 at 22:00; Stop 07/15/16 at 22:29; Status DC Fentanyl Citrate 50 mcg 50 mcg PRN Q15MIN PRN IV PAIN GREATER THAN 3/10 Last administered on 07/16/16 00:30; Start 07/15/16 at 21:45; Stop 07/16/16 at 02:00; Status DC Sodium Chloride 1,000 ml @ 1,000 mls/hr 1X ONCE IV Last administered on 21:59; Start 07/15/16 at 22:00; Stop 07/15/16 at 22:59; Status DC Sodium Chloride (Iv Sodium Chloride 0.9% 500ml Bag) 500 ml @ 500 mls/hr 1X ONCE IV Last administered on 07/15/16 22:00; Start 07/15/16 at 22:00; Stop at 22:59; Status DC Ondansetron HCl (Zofran) 4 mg PRN Q8HRS PRN IV NAUSEA/VOMITING; Start 07/15/16 at 23:30; Stop 07/16/16 at 08:52; Status DC Fentanyl Citrate 50 mcg 50 mcg PRN Q2HR PRN IV SEVERE PAIN Last administered on 07/16/16 08:10; Start 07/15/16 at 23:30; Stop 07/16/16 at 08:52; Status DC Sodium Chloride (Iv Sodium Chloride 0.9% 1000ml Bag) 1,000 ml @ 150 mls/hr Q6H40M IV Last administered on 07/15/16 02:00; Start 07/15/16 at 23:45; Stop 07/16/16 at 08:52; Status DC Acetaminophen (Tylenol) 650 mg PRN Q4HRS PRN PO FEVER; Start 07/15/16 at 23:30; Stop 07/16/16 at 23:29; Status DC Info (Do NOT chart on this placeholder) 1 each PRN DAILY PRN MC NEEDS VERIFICATION; Start 07/16/16 at 03:00; Status Cancel Acetaminophen 650 mg 650 mg PRN Q4HRS PRN PO MILD PAIN / TEMP; Start 07/16/16 at 08:45 Piperacillin Sod/ Tazobactam Sod 3.375 gm/Sodium Chloride 50 ml @ 100 mls/hr Q6HRS IV Last administered on 07/17/16 05:50; Start 07/16/16 at 10:00 Linezolid (Zyvox Premix) 300 ml @ 300 mls/hr Q12HR IV Last administered on 07/17 08:05; Start 07/16/16 at 10:00 Hydromorphone HCl (Dilaudid) 2 mg PRN Q4HRS PRN IV PAIN; Start 07/16/16 at 08:45 Hydromorphone HCl (Dilaudid) 4 mg PRN Q4HRS PRN IV PAIN Last administered on 05:58; Start 07/16/16 at 08:45 Pantoprazole Sodium (Protonix) 40 mg DAILYAC PO Last administered on 07/17/16 08:05; Start 07/16/16 at 09:30 Hyoscyamine (Anaspaz) 0.125 mg Q6HRS PO Last administered on 07/17/16 05:50; Start 07/16/16 at 12:00 Phenazopyridine HCl (Pyridium) 200 mg TID PO Last administered on 07/17/16 08: 05; Start 07/16/16 at 09:30 Lorazepam (Ativan) 0.5 mg PRN BID PRN PO ANXIETY / AGITATION Last administered on 07/17/16 00:45; Start 07/16/16 at 08:45 Simethicone (Gas-X) 80 mg PRN Q4HRS PRN PO GAS / BLOATING; Start 07/16/16 at 08: 45 Zolpidem Tartrate 5 mg 5 mg PRN QHS PRN PO INSOMNIA Last administered on 21:01; Start 07/16/16 at 08:45 Potassium Chloride/Dextrose/ Sod Cl 1,000 ml @ 80 mls/hr [id number] IV Last administered on 07/16/16 10:54; Start 07/16/16 at 09:30; Stop 07/16/16 at 21:59; Status DC Fluconazole/ Sodium Chloride (Diflucan 200mg/ 100ml Premix) 100 ml @ 100 mls/ hr Q24H IV Last administered on 07/16/16 13:51; Start 07/16/16 at 11:00 Info 1 each 1 each PRN DAILY PRN MC SEE COMMENTS Last administered on 07/16/16 12:42; Start 07/16/16 at 10:00 Sodium Chloride 220 meq/Sodium Acetate 90 meq/ Potassium Chloride 50 meq/ Potassium Acetate 15 meq/Potassium Phosphate 10 mmol/ Magnesium Sulfate 50 meq/ Calcium Gluconate 6 meq/ Multivitamins/ Minerals 10 ml/ Chromium/Copper/ Manganese/Seleni/ Zn 1 ml/Total Parenteral Nutrition/Amino Acids/Dextro... 1, 920 ml @ 80 mls/hr TPN CONT IV ; Start 07/16/16 at 22:00; Stop 07/16/16 at 22:00 ; Status DC Sodium Chloride/ Sodium Acetate/ Potassium Chloride/ Potassium Acetate/ Potassium Phosphate/ Magnesium Sulfate/ Calcium Gluconate/ Multivitamins/ Minerals/Chromium/ Copper/Manganese/ Seleni/Zn/Total Parenteral Nutrition/Amino Acids/Dextrose/ Fat Emulsion Intravenous (Sodium Chlori... 1,820 ml @ 75.833 mls/ hr TPN CONT IV Last administered on 07/16/16 21:03; Start 07/16/16 at 22: 00; Stop 07/17/16 at 21:59 Ondansetron HCl (Zofran) 4 mg PRN Q6HRS PRN IV NAUSEA/VOMITING Last administered on 07/16/16 17:11; Start 07/16/16 at 17:15 Diphenhydramine HCl (Benadryl) 25 mg PRN Q6HRS PRN PO ITCHING Last administered on 07/16/16 17:56; Start 07/16/16 at 17:45 Active Scripts Active Dilaudid (Hydromorphone Hcl) 4 Mg Tablet 4 Mg PO Q6HRS Phenazopyridine Hcl 200 Mg Tablet 200 Mg PO PRN TID PRN FENTANYL 50mcg/hr (Fentanyl) 1 Each Patch.td72 1 Patch TD Q3DAYS Anaspaz (Hyoscyamine Sulfate) 0.125 Mg Tab.rapdis 0.125 Mg PO Q6HRS PRN Cefpodoxime Proxetil 200 Mg Tablet 200 Mg PO BID Sertraline Hcl 50 Mg Tablet 100 Mg PO DAILY 30 Days Protonix (Pantoprazole Sodium) 40 Mg Tablet.dr 1 Tab PO DAILY Zinc Oxide 56.7 Gm Oint...g. 1 Sang TP BID Lidocaine 35.44 Gm Oint...g. 1 Sang TP BID Ondansetron Odt (Ondansetron) 4 Mg Tab.rapdis 8 Mg PO PRN Q8HRS PRN Gas-X (Simethicone) 80 Mg Tab.chew 80 Mg PO PRN QID PRN Reported Lorazepam 0.5 Mg Tablet 0.5 Mg PO PRN BID PRN Vitals/I & O Vital Sign - Last 24 Hours 07/16/16 07/16/16 07/16/16 07/16/16 10:55 11:00 11:25 15:00 Temp 98.9 98.5 98.9 98.5 Pulse 94 74 Resp 17 18 16 18 B/P 119/70 140/82 Pulse Ox 99 97 97 O2 Delivery Room Air Room Air Room Air 07/16/16 07/16/16 07/16/16 07/16/16 15:30 19:00 20:00 21:02 Temp 96.6 96.6 Pulse 78 Resp 18 B/P 179/87 Pulse Ox 97 98 O2 Delivery Room Air Room Air Room Air Room Air 07/16/16 07/17/16 07/17/16 07/17/16 23:00 01:19 03:00 05:58 Temp 98.1 99.2 98.1 99.2 Pulse 84 107 Resp 16 16 B/P 178/80 143/81 Pulse Ox 98 98 100 100 O2 Delivery Room Air Room Air Room Air Room Air 07/17/16 07/17/16 06:55 07:20 Pulse 102 Resp 18 B/P 118/60 Pulse Ox 100 95 O2 Delivery Room Air Room Air Intake and Output 07/16/16 07/16/16 07/17/16 15:00 23:00 07:00 Intake Total 50 ml 800 ml 800 ml Output Total 600 ml Balance 50 ml 800 ml 200 ml BENITA LUTZ MD Jul 17, 2016 08:16
[2016-07-17] MEDS: LIDOCAINE 5% TOPICAL OINTMENT 35GM TUBE. TP SCH ×2 (09:00→20:44)
[2016-07-17] MEDS: ZINC OXIDE 20% TOPICAL OINTMENT 28GM TUBE. TP SCH ×2 (09:30→20:44)
[2016-07-17 10:20] LABS: PROCALCITONIN < 0.10 ng/mL (0.00-0.10)
[2016-07-17] MEDS: FLUCONAZOLE 200MG/100ML PREMIX 100 ML IV SCH (10:36)
[2016-07-17] MEDS: TPN PER PHARMACY MC PRN (12:17)
[2016-07-17] MEDS: ZOLPIDEM 5 MG TABLET. PO PRN (20:43)
[2016-07-17] MEDS ORDERED: TOTAL PARENTERAL NUTRITION IV SCH ×12 (22:00)
[2016-07-17] MEDS ORDERED: AMINO ACIDS IV SCH ×12 (22:00)
[2016-07-17] MEDS ORDERED: [UNRECOGNIZED DRUG - OTHER] IV SCH ×12 (22:00)
[2016-07-17] MEDS ORDERED: DEXTROSE 70% IV SCH ×12 (22:00)
[2016-07-17] MEDS: DIPHENHYDRAMINE HCL 25 MG CAPSULE PO PRN (23:27)
[2016-07-18] MEDS: PIPERACILLIN/TAZOBACTAM 3.375 GM in IV NORMAL SALINE 50ML 50 ML IV SCH ×2 (00:09→05:50)
[2016-07-18 03:00] VITALS: BP 147/73
[2016-07-18] MEDS: HYDROMORPHONE 2 MG/ML VIAL. IV PRN ×5 (03:47→21:38)
[2016-07-18] MEDS: HYOSCYAMINE 0.125 MG TAB.RAPDIS PO SCH ×3 (05:50→17:36)
[2016-07-18 06:09] LABS: BASO # 0.1 x10^3/uL (0.0-0.2); BASO % 1 % (0-3); EOS % 7 % (0-3); HEMOGLOBIN 8.9 g/dL (12.0-15.5); LYMPH # 0.8 x10^3/uL (1.0-4.8); LYMPH % 11 % (24-48); MEAN CORPUSCULAR HEMOGLOBIN 25 pg (25-35); MEAN CORPUSCULAR HGB CONC 32 g/dL (31-37); MEAN CORPUSCULAR VOLUME 79 fL (79-100); MONO % 7 % (0-9); NEUT % 75 % (31-73); PLATELET COUNT 372 x10^3/uL (140-400); RED BLOOD COUNT 3.54 x10^6/uL (3.50-5.40); RED CELL DISTRIBUTION WIDTH 18.1 % (11.5-14.5); WHITE BLOOD COUNT 7.5 x10^3/uL (4.0-11.0)
[2016-07-18 06:23] LABS: CALCIUM 8.6 mg/dL (8.5-10.1); CREATININE 0.7 mg/dL (0.6-1.0); GFR 102.9; MAGNESIUM 2.1 mg/dL (1.8-2.4); PHOSPHORUS 4.1 mg/dL (2.6-4.7); POTASSIUM 4.8 mmol/L (3.5-5.1)
[2016-07-18 07:00] VITALS: BP 153/72
[2016-07-18] MEDS: PANTOPRAZOLE 40 MG TABLET. PO SCH (08:34)
[2016-07-18] MEDS: PHENAZOPYRIDINE 200 MG TABLET. PO SCH ×3 (08:34→21:37)
[2016-07-18] MEDS: LIDOCAINE 5% TOPICAL OINTMENT 35GM TUBE. TP SCH ×2 (08:42→21:37)
[2016-07-18] MEDS: ZINC OXIDE 20% TOPICAL OINTMENT 28GM TUBE. TP SCH ×2 (08:42→21:37)
[2016-07-18 10:00] VITALS: BP 156/82
--- NOTE | 2016-07-18 10:41 | PDOC ---
Infectious Disease Note Subjective Subjective Little sleepy but feeling much better except f/C now TPN ROS ROS GEN: Denies fevers, chills, sweats CV: Denies chest pain RESP: Denies shortness of air, cough GI: Denies n/v/d/abdominal pain Vital Sign Vital Signs Vital Signs Date Time Temp Pulse Resp B/P Pulse Ox O2 Delivery O2 Flow Rate FiO2 07/18/16 09:19 Room Air 07/18/16 07:00 97.9 63 16 153/72 94 97.9 Physical Exam PHYSICAL EXAM GENERAL: Rigors in bed, Alert and Coop. Smiling HEENT: OC/OP pink and moist NECK: Supple, no JVD, no LN LUNGS: Clear HEART: S1S2, no gallop, no murmur ABD: BS present, soft, NT. + fistula EXT: No cyanosis. BLE edema LOG SORTER: Alert, oriented x 3, no focal neurologic deficit SKIN: No rash Right-sided chest PICC. clean Labs Lab Laboratory Tests Test 07/18/16 06:00 White Blood Count 7.5x10^3/uL (4.0-11.0) Red Blood Count 3.54x10^6/uL (3.50-5.40) Hemoglobin 8.9g/dL (12.0-15.5) Hematocrit 28.0% (36.0-47.0) Mean Corpuscular Volume 79fL (79-100) Mean Corpuscular Hemoglobin 25pg (25-35) Mean Corpuscular Hemoglobin Concent 32g/dL (31-37) Red Cell Distribution Width 18.1% (11.5-14.5) Platelet Count 372x10^3/uL (140-400) Neutrophils (%) (Auto) 75% (31-73) Lymphocytes (%) (Auto) 11% (24-48) Monocytes (%) (Auto) 7% (0-9) Eosinophils (%) (Auto) 7% (0-3) Basophils (%) (Auto) 1% (0-3) Neutrophils # (Auto) 5.6x10^3uL (1.8-7.7) Lymphocytes # (Auto) 0.8x10^3/uL (1.0-4.8) Monocytes # (Auto) 0.5x10^3/uL (0.0-1.1) Eosinophils # (Auto) 0.5x10^3/uL (0.0-0.7) Basophils # (Auto) 0.1x10^3/uL (0.0-0.2) Sodium Level 134mmol/L (136-145) Potassium Level 4.8mmol/L (3.5-5.1) Chloride Level 101mmol/L (98-107) Carbon Dioxide Level 23mmol/L (21-32) Anion Gap 10 (6-14) Blood Urea Nitrogen 15mg/dL (7-20) Creatinine 0.7mg/dL (0.6-1.0) Estimated GFR (Cockcroft-Gault) 102.9 Glucose Level 117mg/dL (70-99) Calcium Level 8.6mg/dL (8.5-10.1) Phosphorus Level 4.1mg/dL (2.6-4.7) Magnesium Level 2.1mg/dL (1.8-2.4) Micro BLOOD CULTURE Preliminary NO GROWTH AFTER 2 DAYS Objective Assessment Fever and chills. active now EC fistula Enterovesicular fistula Abdominal excoriation Plan Plan of Care D/c Zyvox ,cefepime and Diflucan Dose Meropenem/Micafungin/Dapto Monitor lab values in am and BC f/u stool c. diff D/w family Attending Co-Sign Attending Co-Sign The patient was seen and interviewed as well as examined at the bedside. The chart was reviewed. The case was discussed. Agree with the plan of care. MAYELIN COLEMAN APRN Jul 18, 2016 10:41 ABBY MOTT MD Jul 18, 2016 13:30
[2016-07-18] MEDS ORDERED: FUROSEMIDE 40 MG/4 ML VIAL IVP ONE (11:00)
--- NOTE | 2016-07-18 11:04 | PDOC ---
PROGRESS NOTES Subjective Subjective feels better. not having pain now with voiding. blood culture negative. urine culture growing enterococcus and GNR. afebrile. lab reviewed. has bilateral LE edema. Objective Objective Vital Signs Date Time Temp Pulse Resp B/P Pulse Ox O2 Delivery O2 Flow Rate FiO2 07/18/16 09:19 Room Air 07/18/16 07:00 97.9 63 16 153/72 94 97.9 Intake and Output 07/18/16 07:00 Intake Total 1570 ml Output Total 500 ml Balance 1070 ml Intake Oral 1070 ml IV Total 500 ml Output Urine Total 500 ml # Voids 3 Physical Exam Abdomen: Soft Heart: Regular rate, Normal S1, Normal S2 Extremities: Other (1 plus edema legs) General: Alert HEENT: Atraumatic Lungs: Clear to auscultation Neuro: Normal speech Psych/Mental Status: Mental status NL Skin: No rashes Assessment Assessment Problems Medical Problems:1. Urinary tract infection. enterococcus and GNR 2. Bladder spasms. better 3. Fever.resolved 4. Enterocutaneous fistula. 5. Enterovesical fistula. 6. Anemia of chronic disease. 7. Moderately severe protein calorie malnutrition. bilateral LE edema (1) Abdominal pain Status: Acute (2) Enterocutaneous fistula Status: Acute (3) Sepsis Status: Acute (4) Urinary tract infection Status: Acute (5) UTI (urinary tract infection) Status: Acute Plan Plan of Care continue iv zyvox and zosyn and fluconazole await final blood and urine culture results continue pyridium and levsin iv lasix times 1 now Comment Review of Relevant I have reviewed the following items lucila (where applicable) has been applied. Labs Laboratory Tests Test 07/17/16 06:00 07/18/16 06:00 White Blood Count 4.5x10^3/uL (4.0-11.0) 7.5x10^3/uL (4.0-11.0) Red Blood Count 4.55x10^6/uL (3.50-5.40) 3.54x10^6/uL (3.50-5.40) Hemoglobin 11.2g/dL (12.0-15.5) 8.9g/dL (12.0-15.5) Hematocrit 36.2% (36.0-47.0) 28.0% (36.0-47.0) Mean Corpuscular Volume 79fL (79-100) 79fL (79-100) Mean Corpuscular Hemoglobin 25pg (25-35) 25pg (25-35) Mean Corpuscular Hemoglobin Concent 31g/dL (31-37) 32g/dL (31-37) Red Cell Distribution Width 18.9% (11.5-14.5) 18.1% (11.5-14.5) Platelet Count 222x10^3/uL (140-400) 372x10^3/uL (140-400) Neutrophils (%) (Auto) 77% (31-73) 75% (31-73) Lymphocytes (%) (Auto) 9% (24-48) 11% (24-48) Monocytes (%) (Auto) 10% (0-9) 7% (0-9) Eosinophils (%) (Auto) 4% (0-3) 7% (0-3) Basophils (%) (Auto) 1% (0-3) 1% (0-3) Neutrophils # (Auto) 3.5x10^3uL (1.8-7.7) 5.6x10^3uL (1.8-7.7) Lymphocytes # (Auto) 0.4x10^3/uL (1.0-4.8) 0.8x10^3/uL (1.0-4.8) Monocytes # (Auto) 0.4x10^3/uL (0.0-1.1) 0.5x10^3/uL (0.0-1.1) Eosinophils # (Auto) 0.2x10^3/uL (0.0-0.7) 0.5x10^3/uL (0.0-0.7) Basophils # (Auto) 0.0x10^3/uL (0.0-0.2) 0.1x10^3/uL (0.0-0.2) Sodium Level 136mmol/L (136-145) 134mmol/L (136-145) Potassium Level 4.2mmol/L (3.5-5.1) 4.8mmol/L (3.5-5.1) Chloride Level 105mmol/L (98-107) 101mmol/L (98-107) Carbon Dioxide Level 23mmol/L (21-32) 23mmol/L (21-32) Anion Gap 8 (6-14) 10 (6-14) Blood Urea Nitrogen 12mg/dL (7-20) 15mg/dL (7-20) Creatinine 0.7mg/dL (0.6-1.0) 0.7mg/dL (0.6-1.0) Estimated GFR (Cockcroft-Gault) 102.9 102.9 Glucose Level 114mg/dL (70-99) 117mg/dL (70-99) Lactic Acid Level 1.3mmol/L (0.4-2.0) Calcium Level 8.7mg/dL (8.5-10.1) 8.6mg/dL (8.5-10.1) Phosphorus Level 3.8mg/dL (2.6-4.7) 4.1mg/dL (2.6-4.7) Magnesium Level 1.9mg/dL (1.8-2.4) 2.1mg/dL (1.8-2.4) Laboratory Tests Test 07/18/16 06:00 White Blood Count 7.5x10^3/uL (4.0-11.0) Red Blood Count 3.54x10^6/uL (3.50-5.40) Hemoglobin 8.9g/dL (12.0-15.5) Hematocrit 28.0% (36.0-47.0) Mean Corpuscular Volume 79fL (79-100) Mean Corpuscular Hemoglobin 25pg (25-35) Mean Corpuscular Hemoglobin Concent 32g/dL (31-37) Red Cell Distribution Width 18.1% (11.5-14.5) Platelet Count 372x10^3/uL (140-400) Neutrophils (%) (Auto) 75% (31-73) Lymphocytes (%) (Auto) 11% (24-48) Monocytes (%) (Auto) 7% (0-9) Eosinophils (%) (Auto) 7% (0-3) Basophils (%) (Auto) 1% (0-3) Neutrophils # (Auto) 5.6x10^3uL (1.8-7.7) Lymphocytes # (Auto) 0.8x10^3/uL (1.0-4.8) Monocytes # (Auto) 0.5x10^3/uL (0.0-1.1) Eosinophils # (Auto) 0.5x10^3/uL (0.0-0.7) Basophils # (Auto) 0.1x10^3/uL (0.0-0.2) Sodium Level 134mmol/L (136-145) Potassium Level 4.8mmol/L (3.5-5.1) Chloride Level 101mmol/L (98-107) Carbon Dioxide Level 23mmol/L (21-32) Anion Gap 10 (6-14) Blood Urea Nitrogen 15mg/dL (7-20) Creatinine 0.7mg/dL (0.6-1.0) Estimated GFR (Cockcroft-Gault) 102.9 Glucose Level 117mg/dL (70-99) Calcium Level 8.6mg/dL (8.5-10.1) Phosphorus Level 4.1mg/dL (2.6-4.7) Magnesium Level 2.1mg/dL (1.8-2.4) Microbiology 07/15/16 Blood Culture - Preliminary, Resulted NO GROWTH AFTER 2 DAYS 07/15/16 Urine Culture - Preliminary, Resulted 07/15/16 Urine Culture Result 1 (ROYA) - Preliminary, Resulted 07/15/16 Urine Culture Result 2 (ROYA) - Preliminary, Resulted Medications Current Medications Piperacillin Sod/ Tazobactam Sod/ Sodium Chloride (Zosyn/Iv Sodium Chloride 0.9 % 100ml) 100 ml @ 200 mls/hr 1X ONCE IV Last administered on 07/15/16 22:56; Start 07/15/16 at 22:00; Stop 07/15/16 at 22:29; Status DC Fentanyl Citrate 50 mcg 50 mcg PRN Q15MIN PRN IV PAIN GREATER THAN 3/10 Last administered on 07/16/16 00:30; Start 07/15/16 at 21:45; Stop 07/16/16 at 02:00; Status DC Sodium Chloride 1,000 ml @ 1,000 mls/hr 1X ONCE IV Last administered on 21:59; Start 07/15/16 at 22:00; Stop 07/15/16 at 22:59; Status DC Sodium Chloride (Iv Sodium Chloride 0.9% 500ml Bag) 500 ml @ 500 mls/hr 1X ONCE IV Last administered on 07/15/16 22:00; Start 07/15/16 at 22:00; Stop at 22:59; Status DC Ondansetron HCl (Zofran) 4 mg PRN Q8HRS PRN IV NAUSEA/VOMITING; Start 07/15/16 at 23:30; Stop 07/16/16 at 08:52; Status DC Fentanyl Citrate 50 mcg 50 mcg PRN Q2HR PRN IV SEVERE PAIN Last administered on 07/16/16 08:10; Start 07/15/16 at 23:30; Stop 07/16/16 at 08:52; Status DC Sodium Chloride (Iv Sodium Chloride 0.9% 1000ml Bag) 1,000 ml @ 150 mls/hr Q6H40M IV Last administered on 07/15/16 02:00; Start 07/15/16 at 23:45; Stop 07/16/16 at 08:52; Status DC Acetaminophen (Tylenol) 650 mg PRN Q4HRS PRN PO FEVER; Start 07/15/16 at 23:30; Stop 07/16/16 at 23:29; Status DC Info (Do NOT chart on this placeholder) 1 each PRN DAILY PRN MC NEEDS VERIFICATION; Start 07/16/16 at 03:00; Status Cancel Acetaminophen 650 mg 650 mg PRN Q4HRS PRN PO MILD PAIN / TEMP; Start 07/16/16 at 08:45 Piperacillin Sod/ Tazobactam Sod 3.375 gm/Sodium Chloride 50 ml @ 100 mls/hr Q6HRS IV Last administered on 07/18/16 05:50; Start 07/16/16 at 10:00 Linezolid (Zyvox Premix) 300 ml @ 300 mls/hr Q12HR IV Last administered on 07/18 08:34; Start 07/16/16 at 10:00 Hydromorphone HCl (Dilaudid) 2 mg PRN Q4HRS PRN IV PAIN; Start 07/16/16 at 08:45 Hydromorphone HCl (Dilaudid) 4 mg PRN Q4HRS PRN IV PAIN Last administered on 08:35; Start 07/16/16 at 08:45 Pantoprazole Sodium (Protonix) 40 mg DAILYAC PO Last administered on 07/18/16 08:34; Start 07/16/16 at 09:30 Hyoscyamine (Anaspaz) 0.125 mg Q6HRS PO Last administered on 07/18/16 05:50; Start 07/16/16 at 12:00 Phenazopyridine HCl (Pyridium) 200 mg TID PO Last administered on 07/18/16 08: 34; Start 07/16/16 at 09:30 Lorazepam (Ativan) 0.5 mg PRN BID PRN PO ANXIETY / AGITATION Last administered on 07/17/16 19:07; Start 07/16/16 at 08:45 Simethicone (Gas-X) 80 mg PRN Q4HRS PRN PO GAS / BLOATING; Start 07/16/16 at 08: 45 Zolpidem Tartrate 5 mg 5 mg PRN QHS PRN PO INSOMNIA Last administered on 20:43; Start 07/16/16 at 08:45 Potassium Chloride/Dextrose/ Sod Cl 1,000 ml @ 80 mls/hr [id number] IV Last administered on 07/16/16 10:54; Start 07/16/16 at 09:30; Stop 07/16/16 at 21:59; Status DC Fluconazole/ Sodium Chloride (Diflucan 200mg/ 100ml Premix) 100 ml @ 100 mls/ hr Q24H IV Last administered on 07/17/16 10:36; Start 07/16/16 at 11:00 Info 1 each 1 each PRN DAILY PRN MC SEE COMMENTS Last administered on 07/17/16 12:17; Start 07/16/16 at 10:00 Sodium Chloride 220 meq/Sodium Acetate 90 meq/ Potassium Chloride 50 meq/ Potassium Acetate 15 meq/Potassium Phosphate 10 mmol/ Magnesium Sulfate 50 meq/ Calcium Gluconate 6 meq/ Multivitamins/ Minerals 10 ml/ Chromium/Copper/ Manganese/Seleni/ Zn 1 ml/Total Parenteral Nutrition/Amino Acids/Dextro... 1, 920 ml @ 80 mls/hr TPN CONT IV ; Start 07/16/16 at 22:00; Stop 07/16/16 at 22:00 ; Status DC Sodium Chloride/ Sodium Acetate/ Potassium Chloride/ Potassium Acetate/ Potassium Phosphate/ Magnesium Sulfate/ Calcium Gluconate/ Multivitamins/ Minerals/Chromium/ Copper/Manganese/ Seleni/Zn/Total Parenteral Nutrition/Amino Acids/Dextrose/ Fat Emulsion Intravenous (Sodium Chlori... 1,820 ml @ 75.833 mls/ hr TPN CONT IV Last administered on 07/16/16 21:03; Start 07/16/16 at 22: 00; Stop 07/17/16 at 21:59; Status DC Ondansetron HCl (Zofran) 4 mg PRN Q6HRS PRN IV NAUSEA/VOMITING Last administered on 07/16/16 17:11; Start 07/16/16 at 17:15 Diphenhydramine HCl (Benadryl) 25 mg PRN Q6HRS PRN PO ITCHING Last administered on 07/17/16 23:27; Start 07/16/16 at 17:45 Lidocaine (Xylocaine) 1 sang BID TP Last administered on 07/18/16 08:42; Start 07/17/16 at 09:00 Zinc Oxide 1 sang 1 sang BID TP Last administered on 07/18/16 08:42; Start at 09:30 Sodium Chloride/ Sodium Acetate/ Potassium Chloride/ Potassium Acetate/ Potassium Phosphate/ Magnesium Sulfate/ Calcium Gluconate/ Multivitamins/ Minerals/Chromium/ Copper/Manganese/ Seleni/Zn/Total Parenteral Nutrition/Amino Acids/Dextrose/ Fat Emulsion Intravenous (Sodium Chlori... 1,920 ml @ 80 mls/ hr TPN CONT IV Last administered on 07/17/16 22:13; Start 07/17/16 at 22:00; Stop 07/18/16 at 21:59 Active Scripts Active Dilaudid (Hydromorphone Hcl) 4 Mg Tablet 4 Mg PO Q6HRS Phenazopyridine Hcl 200 Mg Tablet 200 Mg PO PRN TID PRN FENTANYL 50mcg/hr (Fentanyl) 1 Each Patch.td72 1 Patch TD Q3DAYS Anaspaz (Hyoscyamine Sulfate) 0.125 Mg Tab.rapdis 0.125 Mg PO Q6HRS PRN Cefpodoxime Proxetil 200 Mg Tablet 200 Mg PO BID Sertraline Hcl 50 Mg Tablet 100 Mg PO DAILY 30 Days Protonix (Pantoprazole Sodium) 40 Mg Tablet.dr Easley Tab PO DAILY Zinc Oxide 56.7 Gm Oint...g. 1 Sang TP BID Lidocaine 35.44 Gm Oint...g. 1 Sang TP BID Ondansetron Odt (Ondansetron) 4 Mg Tab.rapdis 8 Mg PO PRN Q8HRS PRN Gas-X (Simethicone) 80 Mg Tab.chew 80 Mg PO PRN QID PRN Reported Lorazepam 0.5 Mg Tablet 0.5 Mg PO PRN BID PRN Vitals/I & O Vital Sign - Last 24 Hours 07/17/16 07/17/16 07/17/16 07/17/16 11:05 11:23 14:58 15:20 Temp 97.9 99.1 97.9 99.1 Pulse 102 94 108 Resp 18 16 16 B/P 118/60 100/62 146/79 Pulse Ox 95 100 100 95 O2 Delivery Room Air Room Air Room Air Room Air 07/17/16 07/17/16 07/17/16 07/17/16 19:00 19:08 20:00 22:50 Temp 97.9 97.7 97.9 97.7 Pulse 118 113 Resp 18 18 B/P 175/85 141/95 Pulse Ox 100 100 100 O2 Delivery Room Air Room Air Room Air Room Air 07/17/16 07/18/16 07/18/16 07/18/16 23:38 03:00 03:47 04:20 Temp 97.9 97.9 Pulse 107 Resp 18 B/P 147/73 Pulse Ox 100 99 99 99 O2 Delivery Room Air Room Air Room Air 07/18/16 07/18/16 07/18/16 07:00 08:35 09:19 Temp 97.9 97.9 Pulse 63 Resp 16 B/P 153/72 Pulse Ox 94 O2 Delivery Room Air Room Air Room Air Intake and Output 07/17/16 07/17/16 07/18/16 15:00 23:00 07:00 Intake Total 970 ml 600 ml Output Total 500 ml Balance 970 ml 600 ml -500 ml BENITA LUTZ MD Jul 18, 2016 11:04
[2016-07-18] MEDS: FLUCONAZOLE 200MG/100ML PREMIX 100 ML IV SCH (11:43)
[2016-07-18] MEDS: TPN PER PHARMACY MC PRN (13:23)
[2016-07-18] MEDS: MEROPENEM 1 GM in IV NORMAL SALINE 100ML 100 ML IV SCH ×2 (13:59→23:50)
[2016-07-18] MEDS: MICAFUNGIN 100 MG in IV DEXTROSE 5% 100 ML IV SCH (14:00)
[2016-07-18 15:47] VITALS: BP 125/62
[2016-07-18] MEDS: NORMAL SALINE IV SCH (17:36)
[2016-07-18] MEDS: DAPTOMYCIN IV SCH (17:36)
[2016-07-18 19:00] VITALS: BP 144/79
[2016-07-18] MEDS: LORAZEPAM 0.5 MG TABLET. PO PRN (20:03)
[2016-07-18 20:13] LABS: BASO % 1 % (0-3); EOS % 5 % (0-3); HEMOGLOBIN 8.1 g/dL (12.0-15.5); LYMPH # 0.7 x10^3/uL (1.0-4.8); LYMPH % 10 % (24-48); MEAN CORPUSCULAR HEMOGLOBIN 25 pg (25-35); MEAN CORPUSCULAR HGB CONC 32 g/dL (31-37); MEAN CORPUSCULAR VOLUME 77 fL (79-100); MONO % 6 % (0-9); NEUT % 79 % (31-73); PLATELET COUNT 376 x10^3/uL (140-400); RED BLOOD COUNT 3.25 x10^6/uL (3.50-5.40); RED CELL DISTRIBUTION WIDTH 18.2 % (11.5-14.5); WHITE BLOOD COUNT 7.5 x10^3/uL (4.0-11.0)
[2016-07-18] MEDS ORDERED: [UNRECOGNIZED DRUG - OTHER] IV SCH ×12 (22:00)
[2016-07-18] MEDS ORDERED: AMINO ACIDS IV SCH ×12 (22:00)
[2016-07-18] MEDS ORDERED: TOTAL PARENTERAL NUTRITION IV SCH ×12 (22:00)
[2016-07-18] MEDS ORDERED: DEXTROSE 70% IV SCH ×12 (22:00)
[2016-07-18 23:03] VITALS: BP 138/82
[2016-07-19] MEDS: HYOSCYAMINE 0.125 MG TAB.RAPDIS PO SCH ×5 (00:17→23:17)
[2016-07-19] MEDS: ONDANSETRON PF 4 MG/2 ML VIAL. IV PRN (00:18)
[2016-07-19] MEDS: HYDROMORPHONE 2 MG/ML VIAL. IV PRN ×6 (00:19→23:18)
[2016-07-19 03:05] VITALS: BP 132/72
[2016-07-19] MEDS: MEROPENEM 1 GM in IV NORMAL SALINE 100ML 100 ML IV SCH ×3 (05:24→21:51)
[2016-07-19 06:49] LABS: CALCIUM 8.8 mg/dL (8.5-10.1); CREATININE 0.7 mg/dL (0.6-1.0); GFR 102.9; MAGNESIUM 2.1 mg/dL (1.8-2.4); PHOSPHORUS 3.9 mg/dL (2.6-4.7); POTASSIUM 4.5 mmol/L (3.5-5.1)
[2016-07-19 06:55] LABS: BASO % 0 % (0-3); EOS % 6 % (0-3); LYMPH # 0.6 x10^3/uL (1.0-4.8); LYMPH % 9 % (24-48); MEAN CORPUSCULAR HEMOGLOBIN 25 pg (25-35); MEAN CORPUSCULAR HGB CONC 32 g/dL (31-37); MEAN CORPUSCULAR VOLUME 77 fL (79-100); MONO % 6 % (0-9); NEUT % 79 % (31-73); PLATELET COUNT 288 x10^3/uL (140-400); RED BLOOD COUNT 3.25 x10^6/uL (3.50-5.40); RED CELL DISTRIBUTION WIDTH 18.7 % (11.5-14.5); WHITE BLOOD COUNT 7.2 x10^3/uL (4.0-11.0)
[2016-07-19] MEDS ORDERED: ALTEPLASE 2 MG VIAL INT CAT ONE (07:00)
[2016-07-19 07:33] VITALS: BP 146/85
[2016-07-19] MEDS: ZINC OXIDE 20% TOPICAL OINTMENT 28GM TUBE. TP SCH ×2 (08:21→20:51)
[2016-07-19] MEDS: PHENAZOPYRIDINE 200 MG TABLET. PO SCH ×3 (08:21→20:50)
[2016-07-19] MEDS: LIDOCAINE 5% TOPICAL OINTMENT 35GM TUBE. TP SCH ×2 (08:21→20:50)
[2016-07-19] MEDS: PANTOPRAZOLE 40 MG TABLET. PO SCH (08:21)
[2016-07-19 10:00] VITALS: BP 116/59
--- NOTE | 2016-07-19 10:17 | PDOC ---
Infectious Disease Note Subjective Subjective Not feeling well: cold, mild abdominal discomfort and weak + fever Ate some oatmeal earlier Loose stools Frequent urination, on Lasix TPN ROS ROS CV: Denies chest pain RESP: Denies shortness of air, cough GI: Denies n/v/d NEURO: Denies confusion, headaches Vital Sign Vital Signs Vital Signs Date Time Temp Pulse Resp B/P Pulse Ox O2 Delivery O2 Flow Rate FiO2 07/19/16 07:33 100.6 109 19 146/85 100 Room Air 100.6 Physical Exam PHYSICAL EXAM GENERAL: ill-appearing, position, HEENT: OC/OP pink and dry NECK: Supple, LUNGS: Clear HEART: S1S2, no gallop, no murmur ABD: BS present, soft, NT. + fistula EXT: No cyanosis. BLE edema [employer] COATING: awake, oriented x 3, no focal neurologic deficit SKIN: No rash Right-sided chest PICC. clean Labs Lab Laboratory Tests Test 07/18/16 19:50 07/19/16 06:20 White Blood Count 7.5x10^3/uL (4.0-11.0) 7.2x10^3/uL (4.0-11.0) Red Blood Count 3.25x10^6/uL (3.50-5.40) 3.25x10^6/uL (3.50-5.40) Hemoglobin 8.1g/dL (12.0-15.5) 8.0g/dL (12.0-15.5) Hematocrit 25.0% (36.0-47.0) 25.0% (36.0-47.0) Mean Corpuscular Volume 77fL (79-100) 77fL (79-100) Mean Corpuscular Hemoglobin 25pg (25-35) 25pg (25-35) Mean Corpuscular Hemoglobin Concent 32g/dL (31-37) 32g/dL (31-37) Red Cell Distribution Width 18.2% (11.5-14.5) 18.7% (11.5-14.5) Platelet Count 376x10^3/uL (140-400) 288x10^3/uL (140-400) Neutrophils (%) (Auto) 79% (31-73) 79% (31-73) Lymphocytes (%) (Auto) 10% (24-48) 9% (24-48) Monocytes (%) (Auto) 6% (0-9) 6% (0-9) Eosinophils (%) (Auto) 5% (0-3) 6% (0-3) Basophils (%) (Auto) 1% (0-3) 0% (0-3) Neutrophils # (Auto) 5.9x10^3uL (1.8-7.7) 5.7x10^3uL (1.8-7.7) Lymphocytes # (Auto) 0.7x10^3/uL (1.0-4.8) 0.6x10^3/uL (1.0-4.8) Monocytes # (Auto) 0.4x10^3/uL (0.0-1.1) 0.4x10^3/uL (0.0-1.1) Eosinophils # (Auto) 0.4x10^3/uL (0.0-0.7) 0.4x10^3/uL (0.0-0.7) Basophils # (Auto) 0.0x10^3/uL (0.0-0.2) 0.0x10^3/uL (0.0-0.2) Sodium Level 136mmol/L (136-145) Potassium Level 4.5mmol/L (3.5-5.1) Chloride Level 103mmol/L (98-107) Carbon Dioxide Level 25mmol/L (21-32) Anion Gap 8 (6-14) Blood Urea Nitrogen 16mg/dL (7-20) Creatinine 0.7mg/dL (0.6-1.0) Estimated GFR (Cockcroft-Gault) 102.9 Glucose Level 92mg/dL (70-99) Calcium Level 8.8mg/dL (8.5-10.1) Phosphorus Level 3.9mg/dL (2.6-4.7) Magnesium Level 2.1mg/dL (1.8-2.4) Micro BLOOD CULTURE Preliminary NO GROWTH AFTER 2 DAYS Enterobacter aerogenes 50,000-100,000 colony forming units per mL URINE CULTURE RES 2 Final Enterococcus faecium 50,000-100,000 colony forming units per mL ANTIMICROBIAL SUSCEPTIBILITY Final Comment S = Susceptible; I = Intermediate; R = Resistant P = Positive; N = Negative MICS are expressed in micrograms per mL Antibiotic RSLT#1 RSLT#2 RSLT#3 RSLT#4 Amoxicillin/Clavulanic Acid R Cefazolin R Cefepime R Ceftriaxone R Cefuroxime R Cephalothin R Ciprofloxacin R R Gentamicin S Imipenem R Levofloxacin R R Nitrofurantoin R I Penicillin R Piperacillin R Tetracycline R R Tobramycin S Trimethoprim/Sulfa S Vancomycin S Objective Assessment Fever and chills. Urine Enterobacter and Amp res Enterococcus EC fistula - ate soup last pm and vomited later. no nausea Enterovesicular fistula Abdominal excoriation MDR Enterobacter and enterococcus faecium in urine Plan Plan of Care Dose Gent F/u blood cults - D/w [facility] nursing to acquire prior to Gent Dapto, Meropenem and Micafungin for now Monitor lab values C. diff negative Repeat BC with fever D/w Pierre and family rationale and risks/side effects of aminoglycoside Attending Co-Sign Attending Co-Sign The patient was seen and interviewed as well as examined at the bedside. The chart was reviewed. The case was discussed. Agree with the plan of care. MAYELIN COLEMAN APRN Jul 19, 2016 10:17 ABBY MOTT MD Jul 19, 2016 12:45
--- NOTE | 2016-07-19 10:32 | PDOC ---
PROGRESS NOTES Subjective Subjective febrile and septic. tachycardic. temp 102 degrees now. has MDR enterobacter and enterococcus on urine culture. blood culture negative. has more pain with voiding. will place yang catheter. blood cultures ordered, lab reviewed, Objective Objective Vital Signs Date Time Temp Pulse Resp B/P Pulse Ox O2 Delivery O2 Flow Rate FiO2 07/19/16 07:33 100.6 109 19 146/85 100 Room Air 100.6 Intake and Output 07/19/16 07:00 Intake Total 450 ml Balance 450 ml Intake Oral 450 ml # Voids 13 # Bowel Movements 2 Physical Exam Abdomen: Soft, No tenderness Heart: Regular rate, Normal S1, Normal S2 Extremities: No edema General: Alert HEENT: Atraumatic Lungs: Clear to auscultation Neuro: Normal speech Psych/Mental Status: Mood NL Skin: No rashes Assessment Assessment Problems Medical Problems:1. Urinary tract infection. enterococcus and MDR enterobacter 2. Bladder spasms. 3. Fever and sepsis 4. Enterocutaneous fistula. 5. Enterovesical fistula. 6. Anemia of chronic disease. 7. Moderately severe protein calorie malnutrition. bilateral LE edema (1) Abdominal pain Status: Acute (2) Enterocutaneous fistula Status: Acute (3) Sepsis Status: Acute (4) Urinary tract infection Status: Acute (5) UTI (urinary tract infection) Status: Acute Plan Plan of Care blood cultures now continue iv daptomycin and meropenem and micafungin may need to remove PICC continue TPN continue pyridium and levsin place yang catheter dilaudid iv prn discussed with nurse Comment Review of Relevant I have reviewed the following items lucila (where applicable) has been applied. Labs Laboratory Tests Test 07/18/16 06:00 07/18/16 08:45 07/18/16 19:50 07/19/16 06:20 White Blood Count 7.5x10^3/uL (4.0-11.0) 7.5x10^3/uL (4.0-11.0) 7.2x10^3/uL (4.0-11.0) Red Blood Count 3.54x10^6/uL (3.50-5.40) 3.25x10^6/uL (3.50-5.40) 3.25x10^6/uL (3.50-5.40) Hemoglobin 8.9g/dL (12.0-15.5) 8.1g/dL (12.0-15.5) 8.0g/dL (12.0-15.5) Hematocrit 28.0% (36.0-47.0) 25.0% (36.0-47.0) 25.0% (36.0-47.0) Mean Corpuscular Volume 79fL (79-100) 77fL (79-100) 77fL (79-100) Mean Corpuscular Hemoglobin 25pg (25-35) 25pg (25-35) 25pg (25-35) Mean Corpuscular Hemoglobin Concent 32g/dL (31-37) 32g/dL (31-37) 32g/dL (31-37) Red Cell Distribution Width 18.1% (11.5-14.5) 18.2% (11.5-14.5) 18.7% (11.5-14.5) Platelet Count 372x10^3/uL (140-400) 376x10^3/uL (140-400) 288x10^3/uL (140-400) Neutrophils (%) (Auto) 75% (31-73) 79% (31-73) 79% (31-73) Lymphocytes (%) (Auto) 11% (24-48) 10% (24-48) 9% (24-48) Monocytes (%) (Auto) 7% (0-9) 6% (0-9) 6% (0-9) Eosinophils (%) (Auto) 7% (0-3) 5% (0-3) 6% (0-3) Basophils (%) (Auto) 1% (0-3) 1% (0-3) 0% (0-3) Neutrophils # (Auto) 5.6x10^3uL (1.8-7.7) 5.9x10^3uL (1.8-7.7) 5.7x10^3uL (1.8-7.7) Lymphocytes # (Auto) 0.8x10^3/uL (1.0-4.8) 0.7x10^3/uL (1.0-4.8) 0.6x10^3/uL (1.0-4.8) Monocytes # (Auto) 0.5x10^3/uL (0.0-1.1) 0.4x10^3/uL (0.0-1.1) 0.4x10^3/uL (0.0-1.1) Eosinophils # (Auto) 0.5x10^3/uL (0.0-0.7) 0.4x10^3/uL (0.0-0.7) 0.4x10^3/uL (0.0-0.7) Basophils # (Auto) 0.1x10^3/uL (0.0-0.2) 0.0x10^3/uL (0.0-0.2) 0.0x10^3/uL (0.0-0.2) Sodium Level 134mmol/L (136-145) 136mmol/L (136-145) Potassium Level 4.8mmol/L (3.5-5.1) 4.5mmol/L (3.5-5.1) Chloride Level 101mmol/L (98-107) 103mmol/L (98-107) Carbon Dioxide Level 23mmol/L (21-32) 25mmol/L (21-32) Anion Gap 10 (6-14) 8 (6-14) Blood Urea Nitrogen 15mg/dL (7-20) 16mg/dL (7-20) Creatinine 0.7mg/dL (0.6-1.0) 0.7mg/dL (0.6-1.0) Estimated GFR (Cockcroft-Gault) 102.9 102.9 Glucose Level 117mg/dL (70-99) 92mg/dL (70-99) Calcium Level 8.6mg/dL (8.5-10.1) 8.8mg/dL (8.5-10.1) Phosphorus Level 4.1mg/dL (2.6-4.7) 3.9mg/dL (2.6-4.7) Magnesium Level 2.1mg/dL (1.8-2.4) 2.1mg/dL (1.8-2.4) Clostridium difficile Toxin (PCR) Negative (Negative) Laboratory Tests Test 07/18/16 19:50 07/19/16 06:20 White Blood Count 7.5x10^3/uL (4.0-11.0) 7.2x10^3/uL (4.0-11.0) Red Blood Count 3.25x10^6/uL (3.50-5.40) 3.25x10^6/uL (3.50-5.40) Hemoglobin 8.1g/dL (12.0-15.5) 8.0g/dL (12.0-15.5) Hematocrit 25.0% (36.0-47.0) 25.0% (36.0-47.0) Mean Corpuscular Volume 77fL (79-100) 77fL (79-100) Mean Corpuscular Hemoglobin 25pg (25-35) 25pg (25-35) Mean Corpuscular Hemoglobin Concent 32g/dL (31-37) 32g/dL (31-37) Red Cell Distribution Width 18.2% (11.5-14.5) 18.7% (11.5-14.5) Platelet Count 376x10^3/uL (140-400) 288x10^3/uL (140-400) Neutrophils (%) (Auto) 79% (31-73) 79% (31-73) Lymphocytes (%) (Auto) 10% (24-48) 9% (24-48) Monocytes (%) (Auto) 6% (0-9) 6% (0-9) Eosinophils (%) (Auto) 5% (0-3) 6% (0-3) Basophils (%) (Auto) 1% (0-3) 0% (0-3) Neutrophils # (Auto) 5.9x10^3uL (1.8-7.7) 5.7x10^3uL (1.8-7.7) Lymphocytes # (Auto) 0.7x10^3/uL (1.0-4.8) 0.6x10^3/uL (1.0-4.8) Monocytes # (Auto) 0.4x10^3/uL (0.0-1.1) 0.4x10^3/uL (0.0-1.1) Eosinophils # (Auto) 0.4x10^3/uL (0.0-0.7) 0.4x10^3/uL (0.0-0.7) Basophils # (Auto) 0.0x10^3/uL (0.0-0.2) 0.0x10^3/uL (0.0-0.2) Sodium Level 136mmol/L (136-145) Potassium Level 4.5mmol/L (3.5-5.1) Chloride Level 103mmol/L (98-107) Carbon Dioxide Level 25mmol/L (21-32) Anion Gap 8 (6-14) Blood Urea Nitrogen 16mg/dL (7-20) Creatinine 0.7mg/dL (0.6-1.0) Estimated GFR (Cockcroft-Gault) 102.9 Glucose Level 92mg/dL (70-99) Calcium Level 8.8mg/dL (8.5-10.1) Phosphorus Level 3.9mg/dL (2.6-4.7) Magnesium Level 2.1mg/dL (1.8-2.4) Microbiology 07/15/16 Blood Culture - Preliminary, Resulted NO GROWTH AFTER 3 DAYS 07/15/16 Urine Culture - Final, Complete 07/15/16 Urine Culture Result 1 (ROYA) - Final, Complete 07/15/16 Urine Culture Result 2 (ROYA) - Final, Complete 07/15/16 Antimicrobic Susceptibility - Final, Complete Medications Current Medications Piperacillin Sod/ Tazobactam Sod/ Sodium Chloride (Zosyn/Iv Sodium Chloride 0.9 % 100ml) 100 ml @ 200 mls/hr 1X ONCE IV Last administered on 07/15/16 22:56; Start 07/15/16 at 22:00; Stop 07/15/16 at 22:29; Status DC Fentanyl Citrate 50 mcg 50 mcg PRN Q15MIN PRN IV PAIN GREATER THAN 3/10 Last administered on 07/16/16 00:30; Start 07/15/16 at 21:45; Stop 07/16/16 at 02:00; Status DC Sodium Chloride 1,000 ml @ 1,000 mls/hr 1X ONCE IV Last administered on 21:59; Start 07/15/16 at 22:00; Stop 07/15/16 at 22:59; Status DC Sodium Chloride (Iv Sodium Chloride 0.9% 500ml Bag) 500 ml @ 500 mls/hr 1X ONCE IV Last administered on 07/15/16 22:00; Start 07/15/16 at 22:00; Stop at 22:59; Status DC Ondansetron HCl (Zofran) 4 mg PRN Q8HRS PRN IV NAUSEA/VOMITING; Start 07/15/16 at 23:30; Stop 07/16/16 at 08:52; Status DC Fentanyl Citrate 50 mcg 50 mcg PRN Q2HR PRN IV SEVERE PAIN Last administered on 07/16/16 08:10; Start 07/15/16 at 23:30; Stop 07/16/16 at 08:52; Status DC Sodium Chloride (Iv Sodium Chloride 0.9% 1000ml Bag) 1,000 ml @ 150 mls/hr Q6H40M IV Last administered on 07/15/16 02:00; Start 07/15/16 at 23:45; Stop 07/16/16 at 08:52; Status DC Acetaminophen (Tylenol) 650 mg PRN Q4HRS PRN PO FEVER; Start 07/15/16 at 23:30; Stop 07/16/16 at 23:29; Status DC Info (Do NOT chart on this placeholder) 1 each PRN DAILY PRN MC NEEDS VERIFICATION; Start 07/16/16 at 03:00; Status Cancel Acetaminophen 650 mg 650 mg PRN Q4HRS PRN PO MILD PAIN / TEMP; Start 07/16/16 at 08:45 Piperacillin Sod/ Tazobactam Sod 3.375 gm/Sodium Chloride 50 ml @ 100 mls/hr Q6HRS IV Last administered on 07/18/16 05:50; Start 07/16/16 at 10:00; Stop 07/18 at 13:28; Status DC Linezolid (Zyvox Premix) 300 ml @ 300 mls/hr Q12HR IV Last administered on 07/18 08:34; Start 07/16/16 at 10:00; Stop 07/18/16 at 13:28; Status DC Hydromorphone HCl (Dilaudid) 2 mg PRN Q4HRS PRN IV PAIN Last administered on 05:24; Start 07/16/16 at 08:45 Hydromorphone HCl (Dilaudid) 4 mg PRN Q4HRS PRN IV PAIN Last administered on 08:35; Start 07/16/16 at 08:45 Pantoprazole Sodium (Protonix) 40 mg DAILYAC PO Last administered on 07/19/16 08:21; Start 07/16/16 at 09:30 Hyoscyamine (Anaspaz) 0.125 mg Q6HRS PO Last administered on 07/19/16 05:24; Start 07/16/16 at 12:00 Phenazopyridine HCl (Pyridium) 200 mg TID PO Last administered on 07/19/16 08: 21; Start 07/16/16 at 09:30 Lorazepam (Ativan) 0.5 mg PRN BID PRN PO ANXIETY / AGITATION Last administered on 07/18/16 20:03; Start 07/16/16 at 08:45 Simethicone (Gas-X) 80 mg PRN Q4HRS PRN PO GAS / BLOATING; Start 07/16/16 at 08: 45 Zolpidem Tartrate 5 mg 5 mg PRN QHS PRN PO INSOMNIA Last administered on 20:43; Start 07/16/16 at 08:45 Potassium Chloride/Dextrose/ Sod Cl 1,000 ml @ 80 mls/hr [id number] IV Last administered on 07/16/16 10:54; Start 07/16/16 at 09:30; Stop 07/16/16 at 21:59; Status DC Fluconazole/ Sodium Chloride (Diflucan 200mg/ 100ml Premix) 100 ml @ 100 mls/ hr Q24H IV Last administered on 07/18/16 11:43; Start 07/16/16 at 11:00; Stop at 13:28; Status DC Info 1 each 1 each PRN DAILY PRN MC SEE COMMENTS Last administered on 07/18/16 13:23; Start 07/16/16 at 10:00 Sodium Chloride 220 meq/Sodium Acetate 90 meq/ Potassium Chloride 50 meq/ Potassium Acetate 15 meq/Potassium Phosphate 10 mmol/ Magnesium Sulfate 50 meq/ Calcium Gluconate 6 meq/ Multivitamins/ Minerals 10 ml/ Chromium/Copper/ Manganese/Seleni/ Zn 1 ml/Total Parenteral Nutrition/Amino Acids/Dextro... 1, 920 ml @ 80 mls/hr TPN CONT IV ; Start 07/16/16 at 22:00; Stop 07/16/16 at 22:00 ; Status DC Sodium Chloride/ Sodium Acetate/ Potassium Chloride/ Potassium Acetate/ Potassium Phosphate/ Magnesium Sulfate/ Calcium Gluconate/ Multivitamins/ Minerals/Chromium/ Copper/Manganese/ Seleni/Zn/Total Parenteral Nutrition/Amino Acids/Dextrose/ Fat Emulsion Intravenous (Sodium Chlori... 1,820 ml @ 75.833 mls/ hr TPN CONT IV Last administered on 07/16/16 21:03; Start 07/16/16 at 22: 00; Stop 07/17/16 at 21:59; Status DC Ondansetron HCl (Zofran) 4 mg PRN Q6HRS PRN IV NAUSEA/VOMITING Last administered on 07/19/16 00:18; Start 07/16/16 at 17:15 Diphenhydramine HCl (Benadryl) 25 mg PRN Q6HRS PRN PO ITCHING Last administered on 07/17/16 23:27; Start 07/16/16 at 17:45 Lidocaine (Xylocaine) 1 sang BID TP Last administered on 07/19/16 08:21; Start 07/17/16 at 09:00 Zinc Oxide 1 sang 1 sang BID TP Last administered on 07/19/16 08:21; Start at 09:30 Sodium Chloride/ Sodium Acetate/ Potassium Chloride/ Potassium Acetate/ Potassium Phosphate/ Magnesium Sulfate/ Calcium Gluconate/ Multivitamins/ Minerals/Chromium/ Copper/Manganese/ Seleni/Zn/Total Parenteral Nutrition/Amino Acids/Dextrose/ Fat Emulsion Intravenous (Sodium Chlori... 1,920 ml @ 80 mls/ hr TPN CONT IV Last administered on 07/17/16 22:13; Start 07/17/16 at 22:00; Stop 07/18/16 at 21:59; Status DC Furosemide 40 mg 40 mg 1X ONCE IVP Last administered on 07/18/16 11:43; Start 07/18/16 at 11:00; Stop 07/18/16 at 11:07; Status DC Sodium Chloride 220 meq/Sodium Acetate 90 meq/ Potassium Chloride 50 meq/ Potassium Acetate 15 meq/Potassium Phosphate 10 mmol/ Magnesium Sulfate 50 meq/ Calcium Gluconate 3 meq/ Multivitamins/ Minerals 10 ml/ Chromium/Copper/ Manganese/Seleni/ Zn 1 ml/Total Parenteral Nutrition/Amino Acids/Dextro... 1, 920 ml @ 80 mls/hr TPN CONT IV Last administered on 07/19/16 00:03; Start 07/18/16 at 22:00; Stop 07/19/16 at 21:59 Meropenem 1 gm/ Sodium Chloride 100 ml @ 200 mls/hr Q8HRS IV Last administered on 07/19/16 05:24; Start 07/18/16 at 14:00 Micafungin Sodium 100 mg/Dextrose 100 ml @ 100 mls/hr Q24H IV Last administered on 07/18/16 14:00; Start 07/18/16 at 14:00 Daptomycin/Sodium Chloride (Cubicin/Iv Sodium Chloride 0.9% 50ml) 50 ml @ 100 mls/hr Q24H IV Last administered on 07/18/16 17:36; Start 07/18/16 at 15:00 Alteplase, Recombinant (Cathflo) 2 mg 1X ONCE INT CAT Last administered on 07/19 06:24; Start 07/19/16 at 07:00; Stop 07/19/16 at 07:01; Status DC Active Scripts Active Dilaudid (Hydromorphone Hcl) 4 Mg Tablet 4 Mg PO Q6HRS Phenazopyridine Hcl 200 Mg Tablet 200 Mg PO PRN TID PRN FENTANYL 50mcg/hr (Fentanyl) 1 Each Patch.td72 1 Patch TD Q3DAYS Anaspaz (Hyoscyamine Sulfate) 0.125 Mg Tab.rapdis 0.125 Mg PO Q6HRS PRN Cefpodoxime Proxetil 200 Mg Tablet 200 Mg PO BID Sertraline Hcl 50 Mg Tablet 100 Mg PO DAILY 30 Days Protonix (Pantoprazole Sodium) 40 Mg Tablet.dr 1 Tab PO DAILY Zinc Oxide 56.7 Gm Oint...g. 1 Sang TP BID Lidocaine 35.44 Gm Oint...g. 1 Sang TP BID Ondansetron Odt (Ondansetron) 4 Mg Tab.rapdis 8 Mg PO PRN Q8HRS PRN Gas-X (Simethicone) 80 Mg Tab.chew 80 Mg PO PRN QID PRN Reported Lorazepam 0.5 Mg Tablet 0.5 Mg PO PRN BID PRN Vitals/I & O Vital Sign - Last 24 Hours 07/18/16 07/18/16 07/18/16 07/18/16 13:43 15:47 17:36 19:00 Temp 99.0 98.7 99.0 98.7 Pulse 81 125 Resp 16 16 B/P 125/62 144/79 Pulse Ox 98 100 O2 Delivery Room Air Room Air Room Air Room Air 07/18/16 07/18/16 07/18/16 07/19/16 20:00 21:38 23:03 00:49 Temp 99.3 99.3 Pulse 120 Resp 18 21 16 B/P 138/82 Pulse Ox 100 100 O2 Delivery Room Air Room Air Room Air 07/19/16 07/19/16 07/19/16 07/19/16 03:05 05:24 06:09 07:33 Temp 99.5 100.6 99.5 100.6 Pulse 108 109 Resp 19 19 B/P 132/72 146/85 Pulse Ox 97 97 100 O2 Delivery Room Air Room Air Room Air Room Air Intake and Output 07/18/16 07/18/16 07/19/16 15:00 23:00 07:00 Intake Total 450 ml Balance 450 ml BENITA LUTZ MD Jul 19, 2016 10:31
[2016-07-19] MEDS: ACETAMINOPHEN 325 MG TABLET. PO PRN ×2 (10:44→23:17)
[2016-07-19] MEDS: GENTAMICIN PER PHARMACY. MC PRN (12:23)
[2016-07-19] MEDS: TPN PER PHARMACY MC PRN (12:39)
[2016-07-19] MEDS: GENTAMICIN SULFATE 270 MG in IV NORMAL SALINE 100ML 100 ML IV SCH (13:07)
[2016-07-19 15:00] VITALS: BP 102/43
[2016-07-19] MEDS: MICAFUNGIN 100 MG in IV DEXTROSE 5% 100 ML IV SCH (15:05)
[2016-07-19] MEDS: LORAZEPAM 0.5 MG TABLET. PO PRN (15:06)
[2016-07-19] MEDS: NORMAL SALINE IV SCH (16:56)
[2016-07-19] MEDS: DAPTOMYCIN IV SCH (16:56)
[2016-07-19 19:00] VITALS: BP 143/67
[2016-07-19] MEDS ORDERED: TOTAL PARENTERAL NUTRITION IV SCH ×12 (22:00)
[2016-07-19] MEDS ORDERED: DEXTROSE 70% IV SCH ×12 (22:00)
[2016-07-19] MEDS ORDERED: [UNRECOGNIZED DRUG - OTHER] IV SCH ×12 (22:00)
[2016-07-19] MEDS ORDERED: AMINO ACIDS IV SCH ×12 (22:00)
[2016-07-19 23:00] VITALS: BP 129/53
[2016-07-19] MEDS ORDERED: GENTAMICIN RANDOM LEVEL. MC ONE (23:00)
[2016-07-20] VITALS (7 sets, daily range): BP systolic 96–148; BP diastolic 42–81
[2016-07-20] MEDS: HYDROMORPHONE 2 MG/ML VIAL. IV PRN ×5 (04:03→21:31)
[2016-07-20] MEDS: GENTAMICIN PER PHARMACY. MC PRN ×2 (04:06→14:01)
[2016-07-20] MEDS: HYOSCYAMINE 0.125 MG TAB.RAPDIS PO SCH (05:20)
[2016-07-20] MEDS: MEROPENEM 1 GM in IV NORMAL SALINE 100ML 100 ML IV SCH (05:21)
[2016-07-20 05:39] LABS: CALCIUM 8.2 mg/dL (8.5-10.1); CREATININE 0.6 mg/dL (0.6-1.0); POTASSIUM 4.2 mmol/L (3.5-5.1)
[2016-07-20 05:41] LABS: ALBUMIN 1.7 g/dL (3.4-5.0); PHOSPHORUS 3.6 mg/dL (2.6-4.7)
[2016-07-20 05:43] LABS: BASO % 1 % (0-3); EOS % 6 % (0-3); LYMPH # 0.7 x10^3/uL (1.0-4.8); LYMPH % 11 % (24-48); MEAN CORPUSCULAR HEMOGLOBIN 25 pg (25-35); MEAN CORPUSCULAR HGB CONC 32 g/dL (31-37); MEAN CORPUSCULAR VOLUME 78 fL (79-100); MONO % 9 % (0-9); NEUT % 73 % (31-73); PLATELET COUNT 313 x10^3/uL (140-400); RED BLOOD COUNT 2.66 x10^6/uL (3.50-5.40); RED CELL DISTRIBUTION WIDTH 18.3 % (11.5-14.5); WHITE BLOOD COUNT 6.4 x10^3/uL (4.0-11.0)
[2016-07-20 05:49] LABS: HEMATOCRIT 20.6 % (36.0-47.0); HEMOGLOBIN 6.6 g/dL (12.0-15.5)
[2016-07-20] MEDS: PANTOPRAZOLE 40 MG TABLET. PO SCH (08:24)
[2016-07-20] MEDS: PHENAZOPYRIDINE 200 MG TABLET. PO SCH (08:25)
[2016-07-20] MEDS ORDERED: HYOSCYAMINE 0.125 MG TAB.RAPDIS PO PRN (09:00)
[2016-07-20] MEDS: LIDOCAINE 5% TOPICAL OINTMENT 35GM TUBE. TP SCH ×2 (09:00→21:00)
[2016-07-20] MEDS: ZINC OXIDE 20% TOPICAL OINTMENT 28GM TUBE. TP SCH ×2 (09:00→21:00)
--- NOTE | 2016-07-20 09:00 | PDOC ---
PROGRESS NOTES Subjective Subjective still has some pain . urine orange due to pyridium . repeat blood cultuers pending. hgb 6.6 Objective Objective Vital Signs Date Time Temp Pulse Resp B/P Pulse Ox O2 Delivery O2 Flow Rate FiO2 07/20/16 08:22 Room Air 07/20/16 07:26 99.7 94 18 116/70 96 99.7 Intake and Output 07/20/16 07:00 Intake Total 650 ml Output Total 725 ml Balance -75 ml Intake Oral 650 ml Output Urine Total 725 ml # Bowel Movements 1 Physical Exam Abdomen: Soft, Other (enterocutaneous fistula) Heart: Regular rate, Normal S1, Normal S2 Extremities: Other (1 plus edema feet) General: Alert HEENT: Atraumatic, PERRLA Lungs: Clear to auscultation Neuro: Normal speech Psych/Mental Status: Mental status NL Skin: No rashes Assessment Assessment Problems Medical Problems:1. Urinary tract infection. enterococcus and MDR enterobacter 2. Bladder spasms. 3. Fever and sepsis 4. Enterocutaneous fistula. 5. Enterovesical fistula. 6. Anemia of chronic disease. 7. Moderately severe protein calorie malnutrition. bilateral LE edema (1) Abdominal pain Status: Acute (2) Enterocutaneous fistula Status: Acute (3) Sepsis Status: Acute (4) Urinary tract infection Status: Acute (5) UTI (urinary tract infection) Status: Acute Plan Plan of Care continue iv daptomycin adnd gentamycin and micafungin and meropenem TPN analgesics prn transfuse 2 units prbc today yang catheter change pyridium and levsin to prn await repeat blood culture report Comment Review of Relevant I have reviewed the following items lucila (where applicable) has been applied. Labs Laboratory Tests Test 07/18/16 19:50 07/19/16 06:20 07/20/16 02:30 07/20/16 05:10 White Blood Count 7.5x10^3/uL (4.0-11.0) 7.2x10^3/uL (4.0-11.0) 6.4x10^3/uL (4.0-11.0) Red Blood Count 3.25x10^6/uL (3.50-5.40) 3.25x10^6/uL (3.50-5.40) 2.66x10^6/uL (3.50-5.40) Hemoglobin 8.1g/dL (12.0-15.5) 8.0g/dL (12.0-15.5) 6.6g/dL (12.0-15.5) Hematocrit 25.0% (36.0-47.0) 25.0% (36.0-47.0) 20.6% (36.0-47.0) Mean Corpuscular Volume 77fL (79-100) 77fL (79-100) 78fL (79-100) Mean Corpuscular Hemoglobin 25pg (25-35) 25pg (25-35) 25pg (25-35) Mean Corpuscular Hemoglobin Concent 32g/dL (31-37) 32g/dL (31-37) 32g/dL (31-37) Red Cell Distribution Width 18.2% (11.5-14.5) 18.7% (11.5-14.5) 18.3% (11.5-14.5) Platelet Count 376x10^3/uL (140-400) 288x10^3/uL (140-400) 313x10^3/uL (140-400) Neutrophils (%) (Auto) 79% (31-73) 79% (31-73) 73% (31-73) Lymphocytes (%) (Auto) 10% (24-48) 9% (24-48) 11% (24-48) Monocytes (%) (Auto) 6% (0-9) 6% (0-9) 9% (0-9) Eosinophils (%) (Auto) 5% (0-3) 6% (0-3) 6% (0-3) Basophils (%) (Auto) 1% (0-3) 0% (0-3) 1% (0-3) Neutrophils # (Auto) 5.9x10^3uL (1.8-7.7) 5.7x10^3uL (1.8-7.7) 4.7x10^3uL (1.8-7.7) Lymphocytes # (Auto) 0.7x10^3/uL (1.0-4.8) 0.6x10^3/uL (1.0-4.8) 0.7x10^3/uL (1.0-4.8) Monocytes # (Auto) 0.4x10^3/uL (0.0-1.1) 0.4x10^3/uL (0.0-1.1) 0.6x10^3/uL (0.0-1.1) Eosinophils # (Auto) 0.4x10^3/uL (0.0-0.7) 0.4x10^3/uL (0.0-0.7) 0.4x10^3/uL (0.0-0.7) Basophils # (Auto) 0.0x10^3/uL (0.0-0.2) 0.0x10^3/uL (0.0-0.2) 0.0x10^3/uL (0.0-0.2) Sodium Level 136mmol/L (136-145) 133mmol/L (136-145) Potassium Level 4.5mmol/L (3.5-5.1) 4.2mmol/L (3.5-5.1) Chloride Level 103mmol/L (98-107) 104mmol/L (98-107) Carbon Dioxide Level 25mmol/L (21-32) 25mmol/L (21-32) Anion Gap 8 (6-14) 4 (6-14) Blood Urea Nitrogen 16mg/dL (7-20) 14mg/dL (7-20) Creatinine 0.7mg/dL (0.6-1.0) 0.6mg/dL (0.6-1.0) Estimated GFR (Cockcroft-Gault) 102.9 123.0 Glucose Level 92mg/dL (70-99) 112mg/dL (70-99) Calcium Level 8.8mg/dL (8.5-10.1) 8.2mg/dL (8.5-10.1) Phosphorus Level 3.9mg/dL (2.6-4.7) 3.6mg/dL (2.6-4.7) Magnesium Level 2.1mg/dL (1.8-2.4) 2.0mg/dL (1.8-2.4) Random Gentamicin Level 0.7mcg/mL Albumin 1.7g/dL (3.4-5.0) Laboratory Tests Test 07/20/16 02:30 07/20/16 05:10 Random Gentamicin Level 0.7mcg/mL White Blood Count 6.4x10^3/uL (4.0-11.0) Red Blood Count 2.66x10^6/uL (3.50-5.40) Hemoglobin 6.6g/dL (12.0-15.5) Hematocrit 20.6% (36.0-47.0) Mean Corpuscular Volume 78fL (79-100) Mean Corpuscular Hemoglobin 25pg (25-35) Mean Corpuscular Hemoglobin Concent 32g/dL (31-37) Red Cell Distribution Width 18.3% (11.5-14.5) Platelet Count 313x10^3/uL (140-400) Neutrophils (%) (Auto) 73% (31-73) Lymphocytes (%) (Auto) 11% (24-48) Monocytes (%) (Auto) 9% (0-9) Eosinophils (%) (Auto) 6% (0-3) Basophils (%) (Auto) 1% (0-3) Neutrophils # (Auto) 4.7x10^3uL (1.8-7.7) Lymphocytes # (Auto) 0.7x10^3/uL (1.0-4.8) Monocytes # (Auto) 0.6x10^3/uL (0.0-1.1) Eosinophils # (Auto) 0.4x10^3/uL (0.0-0.7) Basophils # (Auto) 0.0x10^3/uL (0.0-0.2) Sodium Level 133mmol/L (136-145) Potassium Level 4.2mmol/L (3.5-5.1) Chloride Level 104mmol/L (98-107) Carbon Dioxide Level 25mmol/L (21-32) Anion Gap 4 (6-14) Blood Urea Nitrogen 14mg/dL (7-20) Creatinine 0.6mg/dL (0.6-1.0) Estimated GFR (Cockcroft-Gault) 123.0 Glucose Level 112mg/dL (70-99) Calcium Level 8.2mg/dL (8.5-10.1) Phosphorus Level 3.6mg/dL (2.6-4.7) Magnesium Level 2.0mg/dL (1.8-2.4) Albumin 1.7g/dL (3.4-5.0) Microbiology 07/15/16 Blood Culture - Preliminary, Resulted NO GROWTH AFTER 4 DAYS 07/15/16 Urine Culture - Final, Complete 07/15/16 Urine Culture Result 1 (ROYA) - Final, Complete 07/15/16 Urine Culture Result 2 (ROYA) - Final, Complete 07/15/16 Antimicrobic Susceptibility - Final, Complete Medications Current Medications Piperacillin Sod/ Tazobactam Sod/ Sodium Chloride (Zosyn/Iv Sodium Chloride 0.9 % 100ml) 100 ml @ 200 mls/hr 1X ONCE IV Last administered on 07/15/16 22:56; Start 07/15/16 at 22:00; Stop 07/15/16 at 22:29; Status DC Fentanyl Citrate 50 mcg 50 mcg PRN Q15MIN PRN IV PAIN GREATER THAN 3/10 Last administered on 07/16/16 00:30; Start 07/15/16 at 21:45; Stop 07/16/16 at 02:00; Status DC Sodium Chloride 1,000 ml @ 1,000 mls/hr 1X ONCE IV Last administered on 21:59; Start 07/15/16 at 22:00; Stop 07/15/16 at 22:59; Status DC Sodium Chloride (Iv Sodium Chloride 0.9% 500ml Bag) 500 ml @ 500 mls/hr 1X ONCE IV Last administered on 07/15/16 22:00; Start 07/15/16 at 22:00; Stop at 22:59; Status DC Ondansetron HCl (Zofran) 4 mg PRN Q8HRS PRN IV NAUSEA/VOMITING; Start 07/15/16 at 23:30; Stop 07/16/16 at 08:52; Status DC Fentanyl Citrate 50 mcg 50 mcg PRN Q2HR PRN IV SEVERE PAIN Last administered on 07/16/16 08:10; Start 07/15/16 at 23:30; Stop 07/16/16 at 08:52; Status DC Sodium Chloride (Iv Sodium Chloride 0.9% 1000ml Bag) 1,000 ml @ 150 mls/hr Q6H40M IV Last administered on 07/15/16 02:00; Start 07/15/16 at 23:45; Stop 07/16/16 at 08:52; Status DC Acetaminophen (Tylenol) 650 mg PRN Q4HRS PRN PO FEVER; Start 07/15/16 at 23:30; Stop 07/16/16 at 23:29; Status DC Info (Do NOT chart on this placeholder) 1 each PRN DAILY PRN MC NEEDS VERIFICATION; Start 07/16/16 at 03:00; Status Cancel Acetaminophen 650 mg 650 mg PRN Q4HRS PRN PO MILD PAIN / TEMP Last administered on 07/19/16 23:17; Start 07/16/16 at 08:45 Piperacillin Sod/ Tazobactam Sod 3.375 gm/Sodium Chloride 50 ml @ 100 mls/hr Q6HRS IV Last administered on 07/18/16 05:50; Start 07/16/16 at 10:00; Stop 07/18 at 13:28; Status DC Linezolid (Zyvox Premix) 300 ml @ 300 mls/hr Q12HR IV Last administered on 07/18 08:34; Start 07/16/16 at 10:00; Stop 07/18/16 at 13:28; Status DC Hydromorphone HCl (Dilaudid) 2 mg PRN Q4HRS PRN IV PAIN Last administered on 05:24; Start 07/16/16 at 08:45 Hydromorphone HCl (Dilaudid) 4 mg PRN Q4HRS PRN IV PAIN Last administered on 08:22; Start 07/16/16 at 08:45 Pantoprazole Sodium (Protonix) 40 mg DAILYAC PO Last administered on 07/20/16 08:24; Start 07/16/16 at 09:30 Hyoscyamine (Anaspaz) 0.125 mg Q6HRS PO Last administered on 07/20/16 05:20; Start 07/16/16 at 12:00 Phenazopyridine HCl (Pyridium) 200 mg TID PO Last administered on 07/20/16 08: 25; Start 07/16/16 at 09:30 Lorazepam (Ativan) 0.5 mg PRN BID PRN PO ANXIETY / AGITATION Last administered on 07/19/16 15:06; Start 07/16/16 at 08:45 Simethicone (Gas-X) 80 mg PRN Q4HRS PRN PO GAS / BLOATING; Start 07/16/16 at 08: 45 Zolpidem Tartrate 5 mg 5 mg PRN QHS PRN PO INSOMNIA Last administered on 20:43; Start 07/16/16 at 08:45 Potassium Chloride/Dextrose/ Sod Cl 1,000 ml @ 80 mls/hr [id number] IV Last administered on 07/16/16 10:54; Start 07/16/16 at 09:30; Stop 07/16/16 at 21:59; Status DC Fluconazole/ Sodium Chloride (Diflucan 200mg/ 100ml Premix) 100 ml @ 100 mls/ hr Q24H IV Last administered on 07/18/16 11:43; Start 07/16/16 at 11:00; Stop at 13:28; Status DC Info 1 each 1 each PRN DAILY PRN MC SEE COMMENTS Last administered on 07/19/16 12:39; Start 07/16/16 at 10:00 Sodium Chloride 220 meq/Sodium Acetate 90 meq/ Potassium Chloride 50 meq/ Potassium Acetate 15 meq/Potassium Phosphate 10 mmol/ Magnesium Sulfate 50 meq/ Calcium Gluconate 6 meq/ Multivitamins/ Minerals 10 ml/ Chromium/Copper/ Manganese/Seleni/ Zn 1 ml/Total Parenteral Nutrition/Amino Acids/Dextro... 1, 920 ml @ 80 mls/hr TPN CONT IV ; Start 07/16/16 at 22:00; Stop 07/16/16 at 22:00 ; Status DC Sodium Chloride/ Sodium Acetate/ Potassium Chloride/ Potassium Acetate/ Potassium Phosphate/ Magnesium Sulfate/ Calcium Gluconate/ Multivitamins/ Minerals/Chromium/ Copper/Manganese/ Seleni/Zn/Total Parenteral Nutrition/Amino Acids/Dextrose/ Fat Emulsion Intravenous (Sodium Chlori... 1,820 ml @ 75.833 mls/ hr TPN CONT IV Last administered on 07/16/16 21:03; Start 07/16/16 at 22: 00; Stop 07/17/16 at 21:59; Status DC Ondansetron HCl (Zofran) 4 mg PRN Q6HRS PRN IV NAUSEA/VOMITING Last administered on 07/19/16 00:18; Start 07/16/16 at 17:15 Diphenhydramine HCl (Benadryl) 25 mg PRN Q6HRS PRN PO ITCHING Last administered on 07/17/16 23:27; Start 07/16/16 at 17:45 Lidocaine (Xylocaine) 1 sang BID TP Last administered on 07/19/16 20:50; Start 07/17/16 at 09:00 Zinc Oxide 1 sang 1 sang BID TP Last administered on 07/19/16 20:51; Start at 09:30 Sodium Chloride/ Sodium Acetate/ Potassium Chloride/ Potassium Acetate/ Potassium Phosphate/ Magnesium Sulfate/ Calcium Gluconate/ Multivitamins/ Minerals/Chromium/ Copper/Manganese/ Seleni/Zn/Total Parenteral Nutrition/Amino Acids/Dextrose/ Fat Emulsion Intravenous (Sodium Chlori... 1,920 ml @ 80 mls/ hr TPN CONT IV Last administered on 07/17/16 22:13; Start 07/17/16 at 22:00; Stop 07/18/16 at 21:59; Status DC Furosemide 40 mg 40 mg 1X ONCE IVP Last administered on 07/18/16 11:43; Start 07/18/16 at 11:00; Stop 07/18/16 at 11:07; Status DC Sodium Chloride 220 meq/Sodium Acetate 90 meq/ Potassium Chloride 50 meq/ Potassium Acetate 15 meq/Potassium Phosphate 10 mmol/ Magnesium Sulfate 50 meq/ Calcium Gluconate 3 meq/ Multivitamins/ Minerals 10 ml/ Chromium/Copper/ Manganese/Seleni/ Zn 1 ml/Total Parenteral Nutrition/Amino Acids/Dextro... 1, 920 ml @ 80 mls/hr TPN CONT IV Last administered on 07/19/16 00:03; Start 07/18/16 at 22:00; Stop 07/19/16 at 21:59; Status DC Meropenem 1 gm/ Sodium Chloride 100 ml @ 200 mls/hr Q8HRS IV Last administered on 07/20/16 05:21; Start 07/18/16 at 14:00 Micafungin Sodium 100 mg/Dextrose 100 ml @ 100 mls/hr Q24H IV Last administered on 07/19/16 15:05; Start 07/18/16 at 14:00 Daptomycin/Sodium Chloride (Cubicin/Iv Sodium Chloride 0.9% 50ml) 50 ml @ 100 mls/hr Q24H IV Last administered on 07/19/16 16:56; Start 07/18/16 at 15:00 Alteplase, Recombinant (Cathflo) 2 mg 1X ONCE INT CAT Last administered on 07/19 06:24; Start 07/19/16 at 07:00; Stop 07/19/16 at 07:01; Status DC Gentamicin Sulfate 1 each 1 each PRN DAILY PRN MC SEE COMMENTS Last administered on 07/20/16 04:06; Start 07/19/16 at 12:15 Gentamicin Sulfate/Sodium Chloride (Iv Sodium Chloride 0.9% 100ml) 106.75 ml @ 106.75 mls/hr Q24H IV Last administered on 07/19/16 13:07; Start 07/19/16 at 13: 00 Gentamicin Sulfate 1 each 1 each 1X ONCE MC Last administered on 07/19/16 23: 00; Start 07/19/16 at 23:00; Stop 07/19/16 at 23:01; Status DC Sodium Chloride/ Sodium Acetate/ Potassium Chloride/ Potassium Acetate/ Potassium Phosphate/ Magnesium Sulfate/ Calcium Gluconate/ Multivitamins/ Minerals/Chromium/ Copper/Manganese/ Seleni/Zn/Total Parenteral Nutrition/Amino Acids/Dextrose/ Fat Emulsion Intravenous (Sodium Chlori... 1,920 ml @ 80 mls/ hr TPN CONT IV Last administered on 07/19/16 20:51; Start 07/19/16 at 22:00; Stop 07/20/16 at 21:59 Active Scripts Active Dilaudid (Hydromorphone Hcl) 4 Mg Tablet 4 Mg PO Q6HRS Phenazopyridine Hcl 200 Mg Tablet 200 Mg PO PRN TID PRN FENTANYL 50mcg/hr (Fentanyl) 1 Each Patch.td72 1 Patch TD Q3DAYS Anaspaz (Hyoscyamine Sulfate) 0.125 Mg Tab.rapdis 0.125 Mg PO Q6HRS PRN Cefpodoxime Proxetil 200 Mg Tablet 200 Mg PO BID Sertraline Hcl 50 Mg Tablet 100 Mg PO DAILY 30 Days Protonix (Pantoprazole Sodium) 40 Mg Tablet.dr 1 Tab PO DAILY Zinc Oxide 56.7 Gm Oint...g. 1 Sang TP BID Lidocaine 35.44 Gm Oint...g. 1 Sang TP BID Ondansetron Odt (Ondansetron) 4 Mg Tab.rapdis 8 Mg PO PRN Q8HRS PRN Gas-X (Simethicone) 80 Mg Tab.chew 80 Mg PO PRN QID PRN Reported Lorazepam 0.5 Mg Tablet 0.5 Mg PO PRN BID PRN Vitals/I & O Vital Sign - Last 24 Hours 07/19/16 07/19/16 07/19/16 07/19/16 10:00 10:44 15:00 15:06 Temp 102.2 99.0 102.2 99.0 Pulse 119 106 Resp 19 19 B/P 116/59 102/43 Pulse Ox 97 95 O2 Delivery Room Air Room Air Room Air Room Air 07/19/16 07/19/16 07/19/16 07/19/16 19:00 19:14 20:17 23:00 Temp 99.3 100.2 99.3 100.2 Pulse 106 116 Resp 20 20 B/P 143/67 129/53 Pulse Ox 97 98 O2 Delivery Room Air Room Air Room Air Room Air 07/19/16 07/19/16 07/20/16 07/20/16 23:18 23:48 03:00 04:03 Temp 97.9 97.9 Pulse 98 Resp 18 20 18 B/P 148/81 Pulse Ox 97 96 97 O2 Delivery Room Air Room Air Room Air Room Air 07/20/16 07/20/16 07:26 08:22 Temp 99.7 99.7 Pulse 94 Resp 18 B/P 116/70 Pulse Ox 96 O2 Delivery Room Air Room Air Intake and Output 07/19/16 07/19/16 07/20/16 15:00 23:00 07:00 Intake Total 650 ml 0 ml Output Total 375 ml 350 ml Balance 275 ml -350 ml BENITA LUTZ MD Jul 20, 2016 09:00
--- NOTE | 2016-07-20 11:25 | PDOC ---
Infectious Disease Note Subjective Subjective Some better but still mild abdominal discomfort and weak + fever Ate some oatmeal earlier Loose stools Frequent urination, on Lasix TPN ROS ROS GEN: Denies fevers, chills, sweats HEENT: Denies blurred vision, sore throat CV: Denies chest pain RESP: Denies shortness of air, cough GI: Denies n/v/d NEURO: Denies confusion, dizziness MSK: Denies weakness, joint pain/swelling Vital Sign Vital Signs Vital Signs Date Time Temp Pulse Resp B/P Pulse Ox O2 Delivery O2 Flow Rate FiO2 07/20/16 10:14 18 96 Room Air 07/20/16 07:26 99.7 94 116/70 99.7 Physical Exam PHYSICAL EXAM GENERAL: NAD. coop HEENT: OC/OP pink and dry NECK: Supple, LUNGS: Clear HEART: S1S2, no gallop, no murmur ABD: BS present, soft, NT. + fistula. mild firm [place]ila EXT: No cyanosis. BLE edema [employer]: awake, oriented x 3, no focal neurologic deficit Right chest line clean SKIN: No rash Right-sided chest PICC. clean Labs Lab Laboratory Tests Test 07/20/16 02:30 07/20/16 05:10 Random Gentamicin Level 0.7mcg/mL White Blood Count 6.4x10^3/uL (4.0-11.0) Red Blood Count 2.66x10^6/uL (3.50-5.40) Hemoglobin 6.6g/dL (12.0-15.5) Hematocrit 20.6% (36.0-47.0) Mean Corpuscular Volume 78fL (79-100) Mean Corpuscular Hemoglobin 25pg (25-35) Mean Corpuscular Hemoglobin Concent 32g/dL (31-37) Red Cell Distribution Width 18.3% (11.5-14.5) Platelet Count 313x10^3/uL (140-400) Neutrophils (%) (Auto) 73% (31-73) Lymphocytes (%) (Auto) 11% (24-48) Monocytes (%) (Auto) 9% (0-9) Eosinophils (%) (Auto) 6% (0-3) Basophils (%) (Auto) 1% (0-3) Neutrophils # (Auto) 4.7x10^3uL (1.8-7.7) Lymphocytes # (Auto) 0.7x10^3/uL (1.0-4.8) Monocytes # (Auto) 0.6x10^3/uL (0.0-1.1) Eosinophils # (Auto) 0.4x10^3/uL (0.0-0.7) Basophils # (Auto) 0.0x10^3/uL (0.0-0.2) Sodium Level 133mmol/L (136-145) Potassium Level 4.2mmol/L (3.5-5.1) Chloride Level 104mmol/L (98-107) Carbon Dioxide Level 25mmol/L (21-32) Anion Gap 4 (6-14) Blood Urea Nitrogen 14mg/dL (7-20) Creatinine 0.6mg/dL (0.6-1.0) Estimated GFR (Cockcroft-Gault) 123.0 Glucose Level 112mg/dL (70-99) Calcium Level 8.2mg/dL (8.5-10.1) Phosphorus Level 3.6mg/dL (2.6-4.7) Magnesium Level 2.0mg/dL (1.8-2.4) Albumin 1.7g/dL (3.4-5.0) Micro BLOOD CULTURE Preliminary NO GROWTH AFTER 2 DAYS Enterobacter aerogenes 50,000-100,000 colony forming units per mL URINE CULTURE RES 2 Final Enterococcus faecium 50,000-100,000 colony forming units per mL ANTIMICROBIAL SUSCEPTIBILITY Final Comment S = Susceptible; I = Intermediate; R = Resistant P = Positive; N = Negative MICS are expressed in micrograms per mL Antibiotic RSLT#1 RSLT#2 RSLT#3 RSLT#4 Amoxicillin/Clavulanic Acid R Cefazolin R Cefepime R Ceftriaxone R Cefuroxime R Cephalothin R Ciprofloxacin R R Gentamicin S Imipenem R Levofloxacin R R Nitrofurantoin R I Penicillin R Piperacillin R Tetracycline R R Tobramycin S Trimethoprim/Sulfa S Vancomycin S Objective Assessment Fever and chills. - better Acute Anemia ? Urine Enterobacter and Amp res Enterococcus EC fistula - ate soup last pm and vomited later. no nausea Enterovesicular fistula Abdominal excoriation MDR Enterobacter and enterococcus faecium in urine Plan Plan of Care Dose Gent Restart Zyvox Repeat Hemoglobin may need imaging with blood loss D/c Dapto, Meropenem and Micafungin for now Monitor lab values C. diff negative Repeat BC with fever D/w Pierre and family rationale and risks/side effects of aminoglycoside ABBY MOTT MD Jul 20, 2016 11:25
[2016-07-20] MEDS: TPN PER PHARMACY MC PRN (12:51)
[2016-07-20] MEDS: ACETAMINOPHEN 325 MG TABLET. PO PRN (13:36)
[2016-07-20] MEDS: GENTAMICIN SULFATE 270 MG in IV NORMAL SALINE 100ML 100 ML IV SCH (14:43)
[2016-07-20] MEDS: LORAZEPAM 0.5 MG TABLET. PO PRN (21:29)
[2016-07-20] MEDS: ZOLPIDEM 5 MG TABLET. PO PRN (21:29)
[2016-07-20] MEDS: SIMETHICONE 80 MG TAB.CHEW PO PRN (21:29)
[2016-07-20] MEDS ORDERED: AMINO ACIDS IV SCH ×12 (22:00)
[2016-07-20] MEDS ORDERED: TOTAL PARENTERAL NUTRITION IV SCH ×12 (22:00)
[2016-07-20] MEDS ORDERED: DEXTROSE 70% IV SCH ×12 (22:00)
[2016-07-20] MEDS ORDERED: [UNRECOGNIZED DRUG - OTHER] IV SCH ×12 (22:00)
[2016-07-21] MEDS: PHENAZOPYRIDINE 200 MG TABLET. PO PRN ×3 (01:05→20:14)
[2016-07-21] MEDS: HYDROMORPHONE 2 MG/ML VIAL. IV PRN ×5 (01:15→20:16)
[2016-07-21 03:14] VITALS: BP 139/76
[2016-07-21 06:03] LABS: CALCIUM 8.4 mg/dL (8.5-10.1); CREATININE 0.5 mg/dL (0.6-1.0); GFR 151.8; POTASSIUM 4.4 mmol/L (3.5-5.1)
[2016-07-21 07:40] VITALS: BP 122/42
--- NOTE | 2016-07-21 08:22 | PDOC ---
PROGRESS NOTES Subjective Subjective feels better. less pain. febrile yesterday and afebrile this morning. blood cultures negative so far. cbc pending. bmp reviewed. did not receive transfusion of prbc yesterday as repeat hgb 7.2. Objective Objective Vital Signs Date Time Temp Pulse Resp B/P Pulse Ox O2 Delivery O2 Flow Rate FiO2 07/21/16 06:09 95 Room Air 07/21/16 03:14 96 20 139/76 07/20/16 23:00 98.3 98.3 Intake and Output 07/21/16 07:00 Intake Total 2040 ml Output Total 1270 ml Balance 770 ml Intake Oral 1740 ml IV Total 300 ml Output Urine Total 1270 ml # Voids 1 Physical Exam Abdomen: Soft, Other (enterocutaneous fistula with drainage) Heart: Regular rate, Normal S1, Normal S2 Extremities: No edema General: Alert HEENT: Atraumatic Lungs: Clear to auscultation Neuro: Normal speech Psych/Mental Status: Mental status NL Skin: No rashes Assessment Assessment Problems Medical Problems:1. Urinary tract infection. enterococcus and MDR enterobacter 2. Bladder spasms. improved 3. Fever and sepsis improved 4. Enterocutaneous fistula. 5. Enterovesical fistula. 6. Anemia of chronic disease. 7. Moderately severe protein calorie malnutrition. bilateral LE edema resolved (1) Abdominal pain Status: Acute (2) Enterocutaneous fistula Status: Acute (3) Sepsis Status: Acute (4) Urinary tract infection Status: Acute (5) UTI (urinary tract infection) Status: Acute Plan Plan of Care continue iv zyvox and gentamycin continue TPN await final blood cultures cbc pending Comment Review of Relevant I have reviewed the following items lucila (where applicable) has been applied. Labs Laboratory Tests Test 07/20/16 02:30 07/20/16 05:10 07/20/16 12:35 07/21/16 05:30 Random Gentamicin Level 0.7mcg/mL White Blood Count 6.4x10^3/uL (4.0-11.0) Red Blood Count 2.66x10^6/uL (3.50-5.40) Hemoglobin 6.6g/dL (12.0-15.5) 7.2g/dL (12.0-15.5) Hematocrit 20.6% (36.0-47.0) Mean Corpuscular Volume 78fL (79-100) Mean Corpuscular Hemoglobin 25pg (25-35) Mean Corpuscular Hemoglobin Concent 32g/dL (31-37) Red Cell Distribution Width 18.3% (11.5-14.5) Platelet Count 313x10^3/uL (140-400) Neutrophils (%) (Auto) 73% (31-73) Lymphocytes (%) (Auto) 11% (24-48) Monocytes (%) (Auto) 9% (0-9) Eosinophils (%) (Auto) 6% (0-3) Basophils (%) (Auto) 1% (0-3) Neutrophils # (Auto) 4.7x10^3uL (1.8-7.7) Lymphocytes # (Auto) 0.7x10^3/uL (1.0-4.8) Monocytes # (Auto) 0.6x10^3/uL (0.0-1.1) Eosinophils # (Auto) 0.4x10^3/uL (0.0-0.7) Basophils # (Auto) 0.0x10^3/uL (0.0-0.2) Sodium Level 133mmol/L (136-145) 134mmol/L (136-145) Potassium Level 4.2mmol/L (3.5-5.1) 4.4mmol/L (3.5-5.1) Chloride Level 104mmol/L (98-107) 103mmol/L (98-107) Carbon Dioxide Level 25mmol/L (21-32) 28mmol/L (21-32) Anion Gap 4 (6-14) 3 (6-14) Blood Urea Nitrogen 14mg/dL (7-20) 10mg/dL (7-20) Creatinine 0.6mg/dL (0.6-1.0) 0.5mg/dL (0.6-1.0) Estimated GFR (Cockcroft-Gault) 123.0 151.8 Glucose Level 112mg/dL (70-99) 108mg/dL (70-99) Calcium Level 8.2mg/dL (8.5-10.1) 8.4mg/dL (8.5-10.1) Phosphorus Level 3.6mg/dL (2.6-4.7) Magnesium Level 2.0mg/dL (1.8-2.4) Albumin 1.7g/dL (3.4-5.0) Laboratory Tests Test 07/20/16 12:35 07/21/16 05:30 Hemoglobin 7.2g/dL (12.0-15.5) Sodium Level 134mmol/L (136-145) Potassium Level 4.4mmol/L (3.5-5.1) Chloride Level 103mmol/L (98-107) Carbon Dioxide Level 28mmol/L (21-32) Anion Gap 3 (6-14) Blood Urea Nitrogen 10mg/dL (7-20) Creatinine 0.5mg/dL (0.6-1.0) Estimated GFR (Cockcroft-Gault) 151.8 Glucose Level 108mg/dL (70-99) Calcium Level 8.4mg/dL (8.5-10.1) Microbiology 07/19/16 Blood Culture - Preliminary, Resulted NO GROWTH AFTER 1 DAY 07/15/16 Urine Culture - Final, Complete 07/15/16 Urine Culture Result 1 (ROYA) - Final, Complete 07/15/16 Urine Culture Result 2 (ROYA) - Final, Complete 07/15/16 Antimicrobic Susceptibility - Final, Complete Medications Current Medications Piperacillin Sod/ Tazobactam Sod/ Sodium Chloride (Zosyn/Iv Sodium Chloride 0.9 % 100ml) 100 ml @ 200 mls/hr 1X ONCE IV Last administered on 07/15/16 22:56; Start 07/15/16 at 22:00; Stop 07/15/16 at 22:29; Status DC Fentanyl Citrate 50 mcg 50 mcg PRN Q15MIN PRN IV PAIN GREATER THAN 3/10 Last administered on 07/16/16 00:30; Start 07/15/16 at 21:45; Stop 07/16/16 at 02:00; Status DC Sodium Chloride 1,000 ml @ 1,000 mls/hr 1X ONCE IV Last administered on 21:59; Start 07/15/16 at 22:00; Stop 07/15/16 at 22:59; Status DC Sodium Chloride (Iv Sodium Chloride 0.9% 500ml Bag) 500 ml @ 500 mls/hr 1X ONCE IV Last administered on 07/15/16 22:00; Start 07/15/16 at 22:00; Stop at 22:59; Status DC Ondansetron HCl (Zofran) 4 mg PRN Q8HRS PRN IV NAUSEA/VOMITING; Start 07/15/16 at 23:30; Stop 07/16/16 at 08:52; Status DC Fentanyl Citrate 50 mcg 50 mcg PRN Q2HR PRN IV SEVERE PAIN Last administered on 07/16/16 08:10; Start 07/15/16 at 23:30; Stop 07/16/16 at 08:52; Status DC Sodium Chloride (Iv Sodium Chloride 0.9% 1000ml Bag) 1,000 ml @ 150 mls/hr Q6H40M IV Last administered on 07/15/16 02:00; Start 07/15/16 at 23:45; Stop 07/16/16 at 08:52; Status DC Acetaminophen (Tylenol) 650 mg PRN Q4HRS PRN PO FEVER; Start 07/15/16 at 23:30; Stop 07/16/16 at 23:29; Status DC Info (Do NOT chart on this placeholder) 1 each PRN DAILY PRN MC NEEDS VERIFICATION; Start 07/16/16 at 03:00; Status Cancel Acetaminophen 650 mg 650 mg PRN Q4HRS PRN PO MILD PAIN / TEMP Last administered on 07/20/16 13:36; Start 07/16/16 at 08:45 Piperacillin Sod/ Tazobactam Sod 3.375 gm/Sodium Chloride 50 ml @ 100 mls/hr Q6HRS IV Last administered on 07/18/16 05:50; Start 07/16/16 at 10:00; Stop 07/18 at 13:28; Status DC Linezolid (Zyvox Premix) 300 ml @ 300 mls/hr Q12HR IV Last administered on 07/18 08:34; Start 07/16/16 at 10:00; Stop 07/18/16 at 13:28; Status DC Hydromorphone HCl (Dilaudid) 2 mg PRN Q4HRS PRN IV PAIN Last administered on 05:24; Start 07/16/16 at 08:45 Hydromorphone HCl (Dilaudid) 4 mg PRN Q4HRS PRN IV PAIN Last administered on 05:38; Start 07/16/16 at 08:45 Pantoprazole Sodium (Protonix) 40 mg DAILYAC PO Last administered on 07/20/16 08:24; Start 07/16/16 at 09:30 Hyoscyamine (Anaspaz) 0.125 mg Q6HRS PO Last administered on 07/20/16 05:20; Start 07/16/16 at 12:00; Stop 07/20/16 at 08:58; Status DC Phenazopyridine HCl (Pyridium) 200 mg TID PO Last administered on 07/20/16 08: 25; Start 07/16/16 at 09:30; Stop 07/20/16 at 08:58; Status DC Lorazepam (Ativan) 0.5 mg PRN BID PRN PO ANXIETY / AGITATION Last administered on 07/19/16 15:06; Start 07/16/16 at 08:45 Simethicone (Gas-X) 80 mg PRN Q4HRS PRN PO GAS / BLOATING Last administered on 07/20/16 21:29; Start 07/16/16 at 08:45 Zolpidem Tartrate 5 mg 5 mg PRN QHS PRN PO INSOMNIA Last administered on 21:29; Start 07/16/16 at 08:45 Potassium Chloride/Dextrose/ Sod Cl 1,000 ml @ 80 mls/hr [id number] IV Last administered on 07/16/16 10:54; Start 07/16/16 at 09:30; Stop 07/16/16 at 21:59; Status DC Fluconazole/ Sodium Chloride (Diflucan 200mg/ 100ml Premix) 100 ml @ 100 mls/ hr Q24H IV Last administered on 07/18/16 11:43; Start 07/16/16 at 11:00; Stop at 13:28; Status DC Info 1 each 1 each PRN DAILY PRN MC SEE COMMENTS Last administered on 07/20/16 12:51; Start 07/16/16 at 10:00 Sodium Chloride 220 meq/Sodium Acetate 90 meq/ Potassium Chloride 50 meq/ Potassium Acetate 15 meq/Potassium Phosphate 10 mmol/ Magnesium Sulfate 50 meq/ Calcium Gluconate 6 meq/ Multivitamins/ Minerals 10 ml/ Chromium/Copper/ Manganese/Seleni/ Zn 1 ml/Total Parenteral Nutrition/Amino Acids/Dextro... 1, 920 ml @ 80 mls/hr TPN CONT IV ; Start 07/16/16 at 22:00; Stop 07/16/16 at 22:00 ; Status DC Sodium Chloride/ Sodium Acetate/ Potassium Chloride/ Potassium Acetate/ Potassium Phosphate/ Magnesium Sulfate/ Calcium Gluconate/ Multivitamins/ Minerals/Chromium/ Copper/Manganese/ Seleni/Zn/Total Parenteral Nutrition/Amino Acids/Dextrose/ Fat Emulsion Intravenous (Sodium Chlori... 1,820 ml @ 75.833 mls/ hr TPN CONT IV Last administered on 07/16/16 21:03; Start 07/16/16 at 22: 00; Stop 07/17/16 at 21:59; Status DC Ondansetron HCl (Zofran) 4 mg PRN Q6HRS PRN IV NAUSEA/VOMITING Last administered on 07/19/16 00:18; Start 07/16/16 at 17:15 Diphenhydramine HCl (Benadryl) 25 mg PRN Q6HRS PRN PO ITCHING Last administered on 07/17/16 23:27; Start 07/16/16 at 17:45 Lidocaine (Xylocaine) 1 sang BID TP Last administered on 07/20/16 21:00; Start 07/17/16 at 09:00 Zinc Oxide 1 sang 1 sang BID TP Last administered on 07/20/16 21:00; Start at 09:30 Sodium Chloride/ Sodium Acetate/ Potassium Chloride/ Potassium Acetate/ Potassium Phosphate/ Magnesium Sulfate/ Calcium Gluconate/ Multivitamins/ Minerals/Chromium/ Copper/Manganese/ Seleni/Zn/Total Parenteral Nutrition/Amino Acids/Dextrose/ Fat Emulsion Intravenous (Sodium Chlori... 1,920 ml @ 80 mls/ hr TPN CONT IV Last administered on 07/17/16 22:13; Start 07/17/16 at 22:00; Stop 07/18/16 at 21:59; Status DC Furosemide 40 mg 40 mg 1X ONCE IVP Last administered on 07/18/16 11:43; Start 07/18/16 at 11:00; Stop 07/18/16 at 11:07; Status DC Sodium Chloride 220 meq/Sodium Acetate 90 meq/ Potassium Chloride 50 meq/ Potassium Acetate 15 meq/Potassium Phosphate 10 mmol/ Magnesium Sulfate 50 meq/ Calcium Gluconate 3 meq/ Multivitamins/ Minerals 10 ml/ Chromium/Copper/ Manganese/Seleni/ Zn 1 ml/Total Parenteral Nutrition/Amino Acids/Dextro... 1, 920 ml @ 80 mls/hr TPN CONT IV Last administered on 07/19/16 00:03; Start 07/18/16 at 22:00; Stop 07/19/16 at 21:59; Status DC Meropenem 1 gm/ Sodium Chloride 100 ml @ 200 mls/hr Q8HRS IV Last administered on 07/20/16 05:21; Start 07/18/16 at 14:00; Stop 07/20/16 at 11:25; Status DC Micafungin Sodium 100 mg/Dextrose 100 ml @ 100 mls/hr Q24H IV Last administered on 07/19/16 15:05; Start 07/18/16 at 14:00; Stop 07/20/16 at 11:25; Status DC Daptomycin/Sodium Chloride (Cubicin/Iv Sodium Chloride 0.9% 50ml) 50 ml @ 100 mls/hr Q24H IV Last administered on 07/19/16 16:56; Start 07/18/16 at 15:00; Stop 07/20/16 at 11:25; Status DC Alteplase, Recombinant (Cathflo) 2 mg 1X ONCE INT CAT Last administered on 07/19 06:24; Start 07/19/16 at 07:00; Stop 07/19/16 at 07:01; Status DC Gentamicin Sulfate 1 each 1 each PRN DAILY PRN MC SEE COMMENTS Last administered on 07/20/16 14:01; Start 07/19/16 at 12:15 Gentamicin Sulfate/Sodium Chloride (Iv Sodium Chloride 0.9% 100ml) 106.75 ml @ 106.75 mls/hr Q24H IV Last administered on 07/20/16 14:43; Start 07/19/16 at 13: 00 Gentamicin Sulfate 1 each 1 each 1X ONCE MC Last administered on 07/19/16 23: 00; Start 07/19/16 at 23:00; Stop 07/19/16 at 23:01; Status DC Sodium Chloride/ Sodium Acetate/ Potassium Chloride/ Potassium Acetate/ Potassium Phosphate/ Magnesium Sulfate/ Calcium Gluconate/ Multivitamins/ Minerals/Chromium/ Copper/Manganese/ Seleni/Zn/Total Parenteral Nutrition/Amino Acids/Dextrose/ Fat Emulsion Intravenous (Sodium Chlori... 1,920 ml @ 80 mls/ hr TPN CONT IV Last administered on 07/19/16 20:51; Start 07/19/16 at 22:00; Stop 07/20/16 at 21:59; Status DC Hyoscyamine (Anaspaz) 0.125 mg PRN Q6HRS PRN PO BLADDER SPASM; Start 07/20/16 at 09:00 Phenazopyridine HCl 200 mg 200 mg PRN TID PRN PO BLADDER SPASM Last administered on 07/21/16 01:05; Start 07/20/16 at 09:00 Linezolid 300 ml @ 300 mls/hr Q12HR IV Last administered on 07/20/16 21:30; Start 07/20/16 at 12:00 Sodium Chloride/ Sodium Acetate/ Potassium Chloride/ Potassium Acetate/ Potassium Phosphate/ Magnesium Sulfate/ Calcium Gluconate/ Multivitamins/ Minerals/Chromium/ Copper/Manganese/ Seleni/Zn/Total Parenteral Nutrition/Amino Acids/Dextrose/ Fat Emulsion Intravenous (Sodium Chlori... 1,920 ml @ 80 mls/ hr TPN CONT IV Last administered on 07/20/16 21:30; Start 07/20/16 at 22:00; Stop 07/21/16 at 21:59 Active Scripts Active Dilaudid (Hydromorphone Hcl) 4 Mg Tablet 4 Mg PO Q6HRS Phenazopyridine Hcl 200 Mg Tablet 200 Mg PO PRN TID PRN FENTANYL 50mcg/hr (Fentanyl) 1 Each Patch.td72 1 Patch TD Q3DAYS Anaspaz (Hyoscyamine Sulfate) 0.125 Mg Tab.rapdis 0.125 Mg PO Q6HRS PRN Cefpodoxime Proxetil 200 Mg Tablet 200 Mg PO BID Sertraline Hcl 50 Mg Tablet 100 Mg PO DAILY 30 Days Protonix (Pantoprazole Sodium) 40 Mg Tablet.dr 1 Tab PO DAILY Zinc Oxide 56.7 Gm Oint...g. 1 Sang TP BID Lidocaine 35.44 Gm Oint...g. 1 Sang TP BID Ondansetron Odt (Ondansetron) 4 Mg Tab.rapdis 8 Mg PO PRN Q8HRS PRN Gas-X (Simethicone) 80 Mg Tab.chew 80 Mg PO PRN QID PRN Reported Lorazepam 0.5 Mg Tablet 0.5 Mg PO PRN BID PRN Vitals/I & O Vital Sign - Last 24 Hours 07/20/16 07/20/16 07/20/16 07/20/16 08:22 10:14 10:34 12:51 Temp 99.9 99.9 99.9 99.9 Pulse 108 108 Resp 18 18 18 B/P 129/42 129/42 Pulse Ox 97 97 O2 Delivery Room Air Room Air Room Air 07/20/16 07/20/16 07/20/16 07/20/16 13:07 13:37 15:05 17:54 Temp 101.8 101.7 101.8 101.7 Pulse 116 Resp 18 B/P 125/44 Pulse Ox 92 O2 Delivery Room Air Room Air Room Air 07/20/16 07/20/16 07/20/16 07/20/16 19:09 20:00 21:31 23:00 Temp 98.6 98.3 98.6 98.3 Pulse 96 96 Resp 20 20 B/P 100/51 96/57 Pulse Ox 95 95 93 O2 Delivery Room Air Room Air Room Air Room Air 07/21/16 07/21/16 07/21/16 07/21/16 01:15 03:14 05:38 06:09 Pulse 96 Resp 20 B/P 139/76 Pulse Ox 93 95 95 95 O2 Delivery Room Air Room Air Room Air Room Air Intake and Output 07/20/16 07/20/16 07/21/16 15:00 23:00 07:00 Intake Total 360 ml 980 ml 700 ml Output Total 220 ml 1050 ml Balance 360 ml 760 ml -350 ml BENITA LUTZ MD Jul 21, 2016 08:22
[2016-07-21] MEDS: ONDANSETRON PF 4 MG/2 ML VIAL. IV PRN (08:48)
[2016-07-21] MEDS: PANTOPRAZOLE 40 MG TABLET. PO SCH (08:56)
[2016-07-21] MEDS: ACETAMINOPHEN 325 MG TABLET. PO PRN (08:57)
[2016-07-21] MEDS: ZINC OXIDE 20% TOPICAL OINTMENT 28GM TUBE. TP SCH ×2 (08:59→21:01)
[2016-07-21] MEDS: LIDOCAINE 5% TOPICAL OINTMENT 35GM TUBE. TP SCH ×2 (08:59→21:01)
--- NOTE | 2016-07-21 09:04 | PDOC ---
Infectious Disease Note Subjective Subjective Tmax 101.8, yesterday. Afebrile this morning. Reports feeling better. Frequent urination with bladder spasm, on Lasix.n Avila changed Vomit times one after eating but no nausea TPN No tinnitus or vertigo mild itch - no rash ROS ROS GEN: Denies fevers, chills, sweats HEENT: Denies blurred vision, sore throat CV: Denies chest pain RESP: Denies shortness of air, cough GI: Denies n/v/d NEURO: Denies confusion, dizziness MSK: Denies weakness, joint pain/swelling Vital Sign Vital Signs Vital Signs Date Time Temp Pulse Resp B/P Pulse Ox O2 Delivery O2 Flow Rate FiO2 07/21/16 07:40 97.9 98 16 122/42 95 Room Air 97.9 Physical Exam PHYSICAL EXAM GENERAL: NAD, Alert HEENT: PERRL, OC/OP -clear NECK: Supple, no JVD, no LN LUNGS: Clear HEART: S1S2, no gallop, no murmur ABD: Soft, NT, no organomegaly, no rebound. 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, oriented x 3, no focal neurologic deficit SKIN: No rash IV: Right chest clean Labs Lab Laboratory Tests Test 07/20/16 12:35 07/21/16 05:30 Hemoglobin 7.2g/dL (12.0-15.5) Sodium Level 134mmol/L (136-145) Potassium Level 4.4mmol/L (3.5-5.1) Chloride Level 103mmol/L (98-107) Carbon Dioxide Level 28mmol/L (21-32) Anion Gap 3 (6-14) Blood Urea Nitrogen 10mg/dL (7-20) Creatinine 0.5mg/dL (0.6-1.0) Estimated GFR (Cockcroft-Gault) 151.8 Glucose Level 108mg/dL (70-99) Calcium Level 8.4mg/dL (8.5-10.1) Micro BLOOD CULTURE Preliminary NO GROWTH AFTER 2 DAYS Enterobacter aerogenes 50,000-100,000 colony forming units per mL URINE CULTURE RES 2 Final Enterococcus faecium 50,000-100,000 colony forming units per mL ANTIMICROBIAL SUSCEPTIBILITY Final Comment S = Susceptible; I = Intermediate; R = Resistant P = Positive; N = Negative MICS are expressed in micrograms per mL Antibiotic RSLT#1 RSLT#2 RSLT#3 RSLT#4 Amoxicillin/Clavulanic Acid R Cefazolin R Cefepime R Ceftriaxone R Cefuroxime R Cephalothin R Ciprofloxacin R R Gentamicin S Imipenem R Levofloxacin R R Nitrofurantoin R I Penicillin R Piperacillin R Tetracycline R R Tobramycin S Trimethoprim/Sulfa S Vancomycin S Objective Assessment Fever and chills - improving Acute Anemia - improving Urine Enterobacter and Amp res Enterococcus 07/15 EC fistula Enterovesicular fistula Abdominal excoriation MDR Enterobacter and enterococcus faecium in urine Plan Plan of Care Cont Gent (07/19) and Zyvox Repeat Hemoglobin 7.2 - no pRBC given Repeat BC with fever - pending Monitor lab values C. diff negative D/w Pierre and family rationale and risks/side effects of aminoglycoside ABBY MOTT MD Jul 21, 2016 09:04
[2016-07-21 09:11] LABS: BASO % 1 % (0-3); EOS % 8 % (0-3); MEAN CORPUSCULAR HEMOGLOBIN 25 pg (25-35); MEAN CORPUSCULAR VOLUME 77 fL (79-100); MONO % 6 % (0-9)
[2016-07-21 09:38] LABS: RED BLOOD COUNT 3.06 x10^6/uL (3.50-5.40); WHITE BLOOD COUNT 6.1 x10^3/uL (4.0-11.0)
[2016-07-21 09:40] LABS: HEMATOCRIT 23.5 % (36.0-47.0); HEMOGLOBIN 7.6 g/dL (12.0-15.5); LYMPH % 15 % (24-48); MEAN CORPUSCULAR HGB CONC 33 g/dL (31-37); NEUT % 71 % (31-73); PLATELET COUNT 395 x10^3/uL (140-400); RED CELL DISTRIBUTION WIDTH 18.1 % (11.5-14.5)
[2016-07-21 09:41] LABS: LYMPH # 0.9 x10^3/uL (1.0-4.8)
[2016-07-21 11:05] VITALS: BP 137/89
[2016-07-21] MEDS: GENTAMICIN SULFATE 270 MG in IV NORMAL SALINE 100ML 100 ML IV SCH (13:23)
[2016-07-21] MEDS: DIPHENHYDRAMINE HCL 25 MG CAPSULE PO PRN (13:31)
[2016-07-21] MEDS: LORAZEPAM 0.5 MG TABLET. PO PRN ×2 (13:31→23:18)
[2016-07-21] MEDS: TPN PER PHARMACY MC PRN (13:43)
[2016-07-21] MEDS: GENTAMICIN PER PHARMACY. MC PRN (13:59)
[2016-07-21] MEDS ORDERED: ALTEPLASE 2 MG VIAL INT CAT PRN (15:00)
[2016-07-21 15:11] VITALS: BP 126/64
[2016-07-21 19:30] VITALS: BP 113/62
[2016-07-21] MEDS ORDERED: [UNRECOGNIZED DRUG - OTHER] IV SCH ×11 (22:00)
[2016-07-21] MEDS ORDERED: DEXTROSE 70% IV SCH ×11 (22:00)
[2016-07-21] MEDS ORDERED: TOTAL PARENTERAL NUTRITION IV SCH ×11 (22:00)
[2016-07-21] MEDS ORDERED: AMINO ACIDS IV SCH ×11 (22:00)
[2016-07-21 23:57] VITALS: BP 140/69
[2016-07-22] MEDS: HYDROMORPHONE 2 MG/ML VIAL. IV PRN ×6 (01:26→22:19)
[2016-07-22 03:12] VITALS: BP 117/66
[2016-07-22 06:17] LABS: BASO % 1 % (0-3); EOS % 8 % (0-3); HEMATOCRIT 21.9 % (36.0-47.0); HEMOGLOBIN 7.1 g/dL (12.0-15.5); LYMPH # 0.9 x10^3/uL (1.0-4.8); LYMPH % 19 % (24-48); MEAN CORPUSCULAR HEMOGLOBIN 25 pg (25-35); MEAN CORPUSCULAR HGB CONC 32 g/dL (31-37); MEAN CORPUSCULAR VOLUME 78 fL (79-100); MONO % 6 % (0-9); NEUT % 66 % (31-73); PLATELET COUNT 325 x10^3/uL (140-400); RED BLOOD COUNT 2.81 x10^6/uL (3.50-5.40); RED CELL DISTRIBUTION WIDTH 18.5 % (11.5-14.5); WHITE BLOOD COUNT 4.6 x10^3/uL (4.0-11.0)
[2016-07-22 06:26] LABS: CALCIUM 8.4 mg/dL (8.5-10.1); CREATININE 0.6 mg/dL (0.6-1.0); POTASSIUM 4.8 mmol/L (3.5-5.1)
[2016-07-22 07:05] VITALS: BP 122/62
[2016-07-22] MEDS: PANTOPRAZOLE 40 MG TABLET. PO SCH (07:27)
[2016-07-22] MEDS: LIDOCAINE 5% TOPICAL OINTMENT 35GM TUBE. TP SCH ×2 (09:54→20:55)
[2016-07-22] MEDS: ZINC OXIDE 20% TOPICAL OINTMENT 28GM TUBE. TP SCH ×2 (09:54→20:55)
--- NOTE | 2016-07-22 09:58 | PDOC ---
Infectious Disease Note Subjective Subjective Reports feeling better. Trouble with yang. Yang changed and now comfortable Vomit times one after eating again but no nausea TPN No tinnitus or vertigo mild itch - no rash Less fullness around fistula ROS ROS GEN: Denies fevers, chills, sweats HEENT: Denies blurred vision, sore throat CV: Denies chest pain RESP: Denies shortness of air, cough GI: Denies n/v/d NEURO: Denies confusion, dizziness MSK: Denies weakness, joint pain/swelling Vital Sign Vital Signs Vital Signs Date Time Temp Pulse Resp B/P Pulse Ox O2 Delivery O2 Flow Rate FiO2 07/22/16 07:05 97.9 104 20 122/62 96 Room Air 97.9 Physical Exam PHYSICAL EXAM GENERAL: NAD, Alert HEENT: PERRL, OC/OP -clear NECK: Supple, no JVD, no LN LUNGS: Clear HEART: S1S2, no gallop, no murmur ABD: Soft, NT, no organomegaly, no rebound. softer Yang EXT: No edema, no cyanosis ELECTRONICS ENGINEERING TECHNICIAN: Alert, oriented x 3, no focal neurologic deficit SKIN: No rash IV: Right chest clean Labs Lab Laboratory Tests Test 07/22/16 06:05 White Blood Count 4.6x10^3/uL (4.0-11.0) Red Blood Count 2.81x10^6/uL (3.50-5.40) Hemoglobin 7.1g/dL (12.0-15.5) Hematocrit 21.9% (36.0-47.0) Mean Corpuscular Volume 78fL (79-100) Mean Corpuscular Hemoglobin 25pg (25-35) Mean Corpuscular Hemoglobin Concent 32g/dL (31-37) Red Cell Distribution Width 18.5% (11.5-14.5) Platelet Count 325x10^3/uL (140-400) Neutrophils (%) (Auto) 66% (31-73) Lymphocytes (%) (Auto) 19% (24-48) Monocytes (%) (Auto) 6% (0-9) Eosinophils (%) (Auto) 8% (0-3) Basophils (%) (Auto) 1% (0-3) Neutrophils # (Auto) 3.0x10^3uL (1.8-7.7) Lymphocytes # (Auto) 0.9x10^3/uL (1.0-4.8) Monocytes # (Auto) 0.3x10^3/uL (0.0-1.1) Eosinophils # (Auto) 0.4x10^3/uL (0.0-0.7) Basophils # (Auto) 0.0x10^3/uL (0.0-0.2) Sodium Level 137mmol/L (136-145) Potassium Level 4.8mmol/L (3.5-5.1) Chloride Level 103mmol/L (98-107) Carbon Dioxide Level 28mmol/L (21-32) Anion Gap 6 (6-14) Blood Urea Nitrogen 11mg/dL (7-20) Creatinine 0.6mg/dL (0.6-1.0) Estimated GFR (Cockcroft-Gault) 123.0 Glucose Level 97mg/dL (70-99) Calcium Level 8.4mg/dL (8.5-10.1) Micro BLOOD CULTURE Preliminary NO GROWTH AFTER 2 DAYS Enterobacter aerogenes 50,000-100,000 colony forming units per mL URINE CULTURE RES 2 Final Enterococcus faecium 50,000-100,000 colony forming units per mL ANTIMICROBIAL SUSCEPTIBILITY Final Comment S = Susceptible; I = Intermediate; R = Resistant P = Positive; N = Negative MICS are expressed in micrograms per mL Antibiotic RSLT#1 RSLT#2 RSLT#3 RSLT#4 Amoxicillin/Clavulanic Acid R Cefazolin R Cefepime R Ceftriaxone R Cefuroxime R Cephalothin R Ciprofloxacin R R Gentamicin S Imipenem R Levofloxacin R R Nitrofurantoin R I Penicillin R Piperacillin R Tetracycline R R Tobramycin S Trimethoprim/Sulfa S Vancomycin S Objective Assessment Fever and chills - improving Daily vomit without nausea Acute Anemia - improving Urine Enterobacter and Amp res Enterococcus 2/ EC fistula Enterovesicular fistula Abdominal excoriation MDR Enterobacter and enterococcus faecium in urine Plan Plan of Care Cont Gent (2) and Zyvox Repeat Hemoglobin 7.2 - no pRBC given Repeat BC with fever - pending Monitor lab values C. diff negative D/w Pierre and family rationale and risks/side effects of aminoglycoside ABBY MOTT MD Jul 22, 2016 09:58
--- NOTE | 2016-07-22 10:40 | PDOC ---
PROGRESS NOTES Subjective Subjective feels better and wants to maintain yang catheter. afebrile. lab reviewed. hgb 7.1 and getting close to transfusion of prbc. Objective Objective Vital Signs Date Time Temp Pulse Resp B/P Pulse Ox O2 Delivery O2 Flow Rate FiO2 07/22/16 10:33 96 Room Air 07/22/16 07:05 97.9 104 20 122/62 97.9 Intake and Output 07/22/16 07:00 Intake Total 1440 ml Output Total 1825 ml Balance -385 ml Intake Oral 1440 ml Output Urine Total 1825 ml # Bowel Movements 1 Physical Exam Abdomen: Soft Heart: Regular rate, Normal S1, Normal S2 Extremities: No edema General: Alert HEENT: Atraumatic Lungs: Clear to auscultation Neuro: Normal speech Psych/Mental Status: Mental status NL Skin: No rashes Assessment Assessment Problems Medical Problems:1. Urinary tract infection. enterococcus and MDR enterobacter 2. Bladder spasms. improved 3. Fever and sepsis improved 4. Enterocutaneous fistula. 5. Enterovesical fistula. 6. Anemia of chronic disease. 7. Moderately severe protein calorie malnutrition. bilateral LE edema resolved (1) Abdominal pain Status: Acute (2) Enterocutaneous fistula Status: Acute (3) Sepsis Status: Acute (4) Urinary tract infection Status: Acute (5) UTI (urinary tract infection) Status: Acute Plan Plan of Care continue iv zyvox and gentamycin continue TPN Comment Review of Relevant I have reviewed the following items lucila (where applicable) has been applied. Labs Laboratory Tests Test 07/20/16 12:35 07/21/16 05:30 07/21/16 08:22 07/22/16 06:05 Hemoglobin 7.2g/dL (12.0-15.5) 7.6g/dL (12.0-15.5) 7.1g/dL (12.0-15.5) Sodium Level 134mmol/L (136-145) 137mmol/L (136-145) Potassium Level 4.4mmol/L (3.5-5.1) 4.8mmol/L (3.5-5.1) Chloride Level 103mmol/L (98-107) 103mmol/L (98-107) Carbon Dioxide Level 28mmol/L (21-32) 28mmol/L (21-32) Anion Gap 3 (6-14) 6 (6-14) Blood Urea Nitrogen 10mg/dL (7-20) 11mg/dL (7-20) Creatinine 0.5mg/dL (0.6-1.0) 0.6mg/dL (0.6-1.0) Estimated GFR (Cockcroft-Gault) 151.8 123.0 Glucose Level 108mg/dL (70-99) 97mg/dL (70-99) Calcium Level 8.4mg/dL (8.5-10.1) 8.4mg/dL (8.5-10.1) White Blood Count 6.1x10^3/uL (4.0-11.0) 4.6x10^3/uL (4.0-11.0) Red Blood Count 3.06x10^6/uL (3.50-5.40) 2.81x10^6/uL (3.50-5.40) Hematocrit 23.5% (36.0-47.0) 21.9% (36.0-47.0) Mean Corpuscular Volume 77fL (79-100) 78fL (79-100) Mean Corpuscular Hemoglobin 25pg (25-35) 25pg (25-35) Mean Corpuscular Hemoglobin Concent 33g/dL (31-37) 32g/dL (31-37) Red Cell Distribution Width 18.1% (11.5-14.5) 18.5% (11.5-14.5) Platelet Count 395x10^3/uL (140-400) 325x10^3/uL (140-400) Neutrophils (%) (Auto) 71% (31-73) 66% (31-73) Lymphocytes (%) (Auto) 15% (24-48) 19% (24-48) Monocytes (%) (Auto) 6% (0-9) 6% (0-9) Eosinophils (%) (Auto) 8% (0-3) 8% (0-3) Basophils (%) (Auto) 1% (0-3) 1% (0-3) Neutrophils # (Auto) 4.3x10^3uL (1.8-7.7) 3.0x10^3uL (1.8-7.7) Lymphocytes # (Auto) 0.9x10^3/uL (1.0-4.8) 0.9x10^3/uL (1.0-4.8) Monocytes # (Auto) 0.4x10^3/uL (0.0-1.1) 0.3x10^3/uL (0.0-1.1) Eosinophils # (Auto) 0.5x10^3/uL (0.0-0.7) 0.4x10^3/uL (0.0-0.7) Basophils # (Auto) 0.0x10^3/uL (0.0-0.2) 0.0x10^3/uL (0.0-0.2) Laboratory Tests Test 07/22/16 06:05 White Blood Count 4.6x10^3/uL (4.0-11.0) Red Blood Count 2.81x10^6/uL (3.50-5.40) Hemoglobin 7.1g/dL (12.0-15.5) Hematocrit 21.9% (36.0-47.0) Mean Corpuscular Volume 78fL (79-100) Mean Corpuscular Hemoglobin 25pg (25-35) Mean Corpuscular Hemoglobin Concent 32g/dL (31-37) Red Cell Distribution Width 18.5% (11.5-14.5) Platelet Count 325x10^3/uL (140-400) Neutrophils (%) (Auto) 66% (31-73) Lymphocytes (%) (Auto) 19% (24-48) Monocytes (%) (Auto) 6% (0-9) Eosinophils (%) (Auto) 8% (0-3) Basophils (%) (Auto) 1% (0-3) Neutrophils # (Auto) 3.0x10^3uL (1.8-7.7) Lymphocytes # (Auto) 0.9x10^3/uL (1.0-4.8) Monocytes # (Auto) 0.3x10^3/uL (0.0-1.1) Eosinophils # (Auto) 0.4x10^3/uL (0.0-0.7) Basophils # (Auto) 0.0x10^3/uL (0.0-0.2) Sodium Level 137mmol/L (136-145) Potassium Level 4.8mmol/L (3.5-5.1) Chloride Level 103mmol/L (98-107) Carbon Dioxide Level 28mmol/L (21-32) Anion Gap 6 (6-14) Blood Urea Nitrogen 11mg/dL (7-20) Creatinine 0.6mg/dL (0.6-1.0) Estimated GFR (Cockcroft-Gault) 123.0 Glucose Level 97mg/dL (70-99) Calcium Level 8.4mg/dL (8.5-10.1) Microbiology 07/19/16 Blood Culture - Preliminary, Resulted NO GROWTH AFTER 2 DAYS 07/15/16 Urine Culture - Final, Complete 07/15/16 Urine Culture Result 1 (ROYA) - Final, Complete 07/15/16 Urine Culture Result 2 (ROYA) - Final, Complete 07/15/16 Antimicrobic Susceptibility - Final, Complete Medications Current Medications Piperacillin Sod/ Tazobactam Sod/ Sodium Chloride (Zosyn/Iv Sodium Chloride 0.9 % 100ml) 100 ml @ 200 mls/hr 1X ONCE IV Last administered on 07/15/16 22:56; Start 07/15/16 at 22:00; Stop 07/15/16 at 22:29; Status DC Fentanyl Citrate 50 mcg 50 mcg PRN Q15MIN PRN IV PAIN GREATER THAN 3/10 Last administered on 07/16/16 00:30; Start 07/15/16 at 21:45; Stop 07/16/16 at 02:00; Status DC Sodium Chloride 1,000 ml @ 1,000 mls/hr 1X ONCE IV Last administered on 21:59; Start 07/15/16 at 22:00; Stop 07/15/16 at 22:59; Status DC Sodium Chloride (Iv Sodium Chloride 0.9% 500ml Bag) 500 ml @ 500 mls/hr 1X ONCE IV Last administered on 07/15/16 22:00; Start 07/15/16 at 22:00; Stop at 22:59; Status DC Ondansetron HCl (Zofran) 4 mg PRN Q8HRS PRN IV NAUSEA/VOMITING; Start 07/15/16 at 23:30; Stop 07/16/16 at 08:52; Status DC Fentanyl Citrate 50 mcg 50 mcg PRN Q2HR PRN IV SEVERE PAIN Last administered on 07/16/16 08:10; Start 07/15/16 at 23:30; Stop 07/16/16 at 08:52; Status DC Sodium Chloride (Iv Sodium Chloride 0.9% 1000ml Bag) 1,000 ml @ 150 mls/hr Q6H40M IV Last administered on 07/15/16 02:00; Start 07/15/16 at 23:45; Stop 07/16/16 at 08:52; Status DC Acetaminophen (Tylenol) 650 mg PRN Q4HRS PRN PO FEVER; Start 07/15/16 at 23:30; Stop 07/16/16 at 23:29; Status DC Info (Do NOT chart on this placeholder) 1 each PRN DAILY PRN MC NEEDS VERIFICATION; Start 07/16/16 at 03:00; Status Cancel Acetaminophen 650 mg 650 mg PRN Q4HRS PRN PO MILD PAIN / TEMP Last administered on 07/21/16 08:57; Start 07/16/16 at 08:45 Piperacillin Sod/ Tazobactam Sod 3.375 gm/Sodium Chloride 50 ml @ 100 mls/hr Q6HRS IV Last administered on 07/18/16 05:50; Start 07/16/16 at 10:00; Stop 07/18 at 13:28; Status DC Linezolid (Zyvox Premix) 300 ml @ 300 mls/hr Q12HR IV Last administered on 07/18 08:34; Start 07/16/16 at 10:00; Stop 07/18/16 at 13:28; Status DC Hydromorphone HCl (Dilaudid) 2 mg PRN Q4HRS PRN IV PAIN Last administered on 09:52; Start 07/16/16 at 08:45 Hydromorphone HCl (Dilaudid) 4 mg PRN Q4HRS PRN IV PAIN Last administered on 01:26; Start 07/16/16 at 08:45 Pantoprazole Sodium (Protonix) 40 mg DAILYAC PO Last administered on 07/22/16 07:27; Start 07/16/16 at 09:30 Hyoscyamine (Anaspaz) 0.125 mg Q6HRS PO Last administered on 07/20/16 05:20; Start 07/16/16 at 12:00; Stop 07/20/16 at 08:58; Status DC Phenazopyridine HCl (Pyridium) 200 mg TID PO Last administered on 07/20/16 08: 25; Start 07/16/16 at 09:30; Stop 07/20/16 at 08:58; Status DC Lorazepam (Ativan) 0.5 mg PRN BID PRN PO ANXIETY / AGITATION Last administered on 07/21/16 23:18; Start 07/16/16 at 08:45 Simethicone (Gas-X) 80 mg PRN Q4HRS PRN PO GAS / BLOATING Last administered on 07/20/16 21:29; Start 07/16/16 at 08:45 Zolpidem Tartrate 5 mg 5 mg PRN QHS PRN PO INSOMNIA Last administered on 21:29; Start 07/16/16 at 08:45 Potassium Chloride/Dextrose/ Sod Cl 1,000 ml @ 80 mls/hr [id number] IV Last administered on 07/16/16 10:54; Start 07/16/16 at 09:30; Stop 07/16/16 at 21:59; Status DC Fluconazole/ Sodium Chloride (Diflucan 200mg/ 100ml Premix) 100 ml @ 100 mls/ hr Q24H IV Last administered on 07/18/16 11:43; Start 07/16/16 at 11:00; Stop at 13:28; Status DC Info 1 each 1 each PRN DAILY PRN MC SEE COMMENTS Last administered on 07/21/16 13:43; Start 07/16/16 at 10:00 Sodium Chloride 220 meq/Sodium Acetate 90 meq/ Potassium Chloride 50 meq/ Potassium Acetate 15 meq/Potassium Phosphate 10 mmol/ Magnesium Sulfate 50 meq/ Calcium Gluconate 6 meq/ Multivitamins/ Minerals 10 ml/ Chromium/Copper/ Manganese/Seleni/ Zn 1 ml/Total Parenteral Nutrition/Amino Acids/Dextro... 1, 920 ml @ 80 mls/hr TPN CONT IV ; Start 07/16/16 at 22:00; Stop 07/16/16 at 22:00 ; Status DC Sodium Chloride/ Sodium Acetate/ Potassium Chloride/ Potassium Acetate/ Potassium Phosphate/ Magnesium Sulfate/ Calcium Gluconate/ Multivitamins/ Minerals/Chromium/ Copper/Manganese/ Seleni/Zn/Total Parenteral Nutrition/Amino Acids/Dextrose/ Fat Emulsion Intravenous (Sodium Chlori... 1,820 ml @ 75.833 mls/ hr TPN CONT IV Last administered on 07/16/16 21:03; Start 07/16/16 at 22: 00; Stop 07/17/16 at 21:59; Status DC Ondansetron HCl (Zofran) 4 mg PRN Q6HRS PRN IV NAUSEA/VOMITING Last administered on 07/21/16 08:48; Start 07/16/16 at 17:15 Diphenhydramine HCl (Benadryl) 25 mg PRN Q6HRS PRN PO ITCHING Last administered on 07/21/16 13:31; Start 07/16/16 at 17:45 Lidocaine (Xylocaine) 1 sang BID TP Last administered on 07/22/16 09:54; Start 07/17/16 at 09:00 Zinc Oxide 1 sang 1 sang BID TP Last administered on 07/22/16 09:54; Start at 09:30 Sodium Chloride/ Sodium Acetate/ Potassium Chloride/ Potassium Acetate/ Potassium Phosphate/ Magnesium Sulfate/ Calcium Gluconate/ Multivitamins/ Minerals/Chromium/ Copper/Manganese/ Seleni/Zn/Total Parenteral Nutrition/Amino Acids/Dextrose/ Fat Emulsion Intravenous (Sodium Chlori... 1,920 ml @ 80 mls/ hr TPN CONT IV Last administered on 07/17/16 22:13; Start 07/17/16 at 22:00; Stop 07/18/16 at 21:59; Status DC Furosemide 40 mg 40 mg 1X ONCE IVP Last administered on 07/18/16 11:43; Start 07/18/16 at 11:00; Stop 07/18/16 at 11:07; Status DC Sodium Chloride 220 meq/Sodium Acetate 90 meq/ Potassium Chloride 50 meq/ Potassium Acetate 15 meq/Potassium Phosphate 10 mmol/ Magnesium Sulfate 50 meq/ Calcium Gluconate 3 meq/ Multivitamins/ Minerals 10 ml/ Chromium/Copper/ Manganese/Seleni/ Zn 1 ml/Total Parenteral Nutrition/Amino Acids/Dextro... 1, 920 ml @ 80 mls/hr TPN CONT IV Last administered on 07/19/16 00:03; Start 07/18/16 at 22:00; Stop 07/19/16 at 21:59; Status DC Meropenem 1 gm/ Sodium Chloride 100 ml @ 200 mls/hr Q8HRS IV Last administered on 07/20/16 05:21; Start 07/18/16 at 14:00; Stop 07/20/16 at 11:25; Status DC Micafungin Sodium 100 mg/Dextrose 100 ml @ 100 mls/hr Q24H IV Last administered on 07/19/16 15:05; Start 07/18/16 at 14:00; Stop 07/20/16 at 11:25; Status DC Daptomycin/Sodium Chloride (Cubicin/Iv Sodium Chloride 0.9% 50ml) 50 ml @ 100 mls/hr Q24H IV Last administered on 07/19/16 16:56; Start 07/18/16 at 15:00; Stop 07/20/16 at 11:25; Status DC Alteplase, Recombinant (Cathflo) 2 mg 1X ONCE INT CAT Last administered on 07/19 06:24; Start 07/19/16 at 07:00; Stop 07/19/16 at 07:01; Status DC Gentamicin Sulfate 1 each 1 each PRN DAILY PRN MC SEE COMMENTS Last administered on 07/21/16 13:59; Start 07/19/16 at 12:15 Gentamicin Sulfate/Sodium Chloride (Iv Sodium Chloride 0.9% 100ml) 106.75 ml @ 106.75 mls/hr Q24H IV Last administered on 07/21/16 13:23; Start 07/19/16 at 13: 00 Gentamicin Sulfate 1 each 1 each 1X ONCE MC Last administered on 07/19/16 23: 00; Start 07/19/16 at 23:00; Stop 07/19/16 at 23:01; Status DC Sodium Chloride/ Sodium Acetate/ Potassium Chloride/ Potassium Acetate/ Potassium Phosphate/ Magnesium Sulfate/ Calcium Gluconate/ Multivitamins/ Minerals/Chromium/ Copper/Manganese/ Seleni/Zn/Total Parenteral Nutrition/Amino Acids/Dextrose/ Fat Emulsion Intravenous (Sodium Chlori... 1,920 ml @ 80 mls/ hr TPN CONT IV Last administered on 07/19/16 20:51; Start 07/19/16 at 22:00; Stop 07/20/16 at 21:59; Status DC Hyoscyamine (Anaspaz) 0.125 mg PRN Q6HRS PRN PO BLADDER SPASM; Start 07/20/16 at 09:00 Phenazopyridine HCl 200 mg 200 mg PRN TID PRN PO BLADDER SPASM Last administered on 07/21/16 20:14; Start 07/20/16 at 09:00 Linezolid 300 ml @ 300 mls/hr Q12HR IV Last administered on 07/22/16 09:53; Start 07/20/16 at 12:00 Sodium Chloride 220 meq/Sodium Acetate 90 meq/ Potassium Chloride 50 meq/ Potassium Acetate 15 meq/Potassium Phosphate 10 mmol/ Magnesium Sulfate 50 meq/ Calcium Gluconate 3 meq/ Multivitamins/ Minerals 10 ml/ Chromium/Copper/ Manganese/Seleni/ Zn 1 ml/Total Parenteral Nutrition/Amino Acids/Dextro... 1, 920 ml @ 80 mls/hr TPN CONT IV Last administered on 07/20/16 21:30; Start 07/20/16 at 22:00; Stop 07/21/16 at 21:59; Status DC Sodium Chloride/ Sodium Acetate/ Potassium Chloride/ Potassium Acetate/ Potassium Phosphate/ Magnesium Sulfate/ Multivitamins/ Minerals/Chromium/ Copper /Manganese/ Seleni/Zn/Total Parenteral Nutrition/Amino Acids/Dextrose/ Fat Emulsion Intravenous (Sodium Chloride/ Potass... 1,920 ml @ 80 mls/hr TPN CONT IV Last administered on 07/21/16 22:05; Start 07/21/16 at 22:00; Stop at 21:59 Alteplase, Recombinant (Cathflo) 2 mg PRN DAILY PRN INT CAT INFLAMMATION; Start 07/21/16 at 15:00 Active Scripts Active Dilaudid (Hydromorphone Hcl) 4 Mg Tablet 4 Mg PO Q6HRS Phenazopyridine Hcl 200 Mg Tablet 200 Mg PO PRN TID PRN FENTANYL 50mcg/hr (Fentanyl) 1 Each Patch.td72 1 Patch TD Q3DAYS Anaspaz (Hyoscyamine Sulfate) 0.125 Mg Tab.rapdis 0.125 Mg PO Q6HRS PRN Cefpodoxime Proxetil 200 Mg Tablet 200 Mg PO BID Sertraline Hcl 50 Mg Tablet 100 Mg PO DAILY 30 Days Protonix (Pantoprazole Sodium) 40 Mg Tablet.dr 1 Tab PO DAILY Zinc Oxide 56.7 Gm Oint...g. 1 Sang TP BID Lidocaine 35.44 Gm Oint...g. 1 Sang TP BID Ondansetron Odt (Ondansetron) 4 Mg Tab.rapdis 8 Mg PO PRN Q8HRS PRN Gas-X (Simethicone) 80 Mg Tab.chew 80 Mg PO PRN QID PRN Reported Lorazepam 0.5 Mg Tablet 0.5 Mg PO PRN BID PRN Vitals/I & O Vital Sign - Last 24 Hours 07/21/16 07/21/16 07/21/16 07/21/16 10:49 11:05 15:11 15:31 Temp 97.7 96.6 97.7 96.6 Pulse 113 97 Resp 18 18 B/P 137/89 126/64 Pulse Ox 95 98 100 100 O2 Delivery Room Air Room Air Room Air Room Air 07/21/16 07/21/16 07/21/16 07/21/16 19:30 20:00 20:16 23:57 Temp 98.4 98.1 98.4 98.1 Pulse 18 94 Resp 20 18 20 B/P 113/62 140/69 Pulse Ox 100 92 99 O2 Delivery Room Air Room Air Room Air Room Air 07/22/16 07/22/16 07/22/16 07/22/16 01:26 02:00 03:12 05:51 Temp 98.1 98.1 Pulse 102 Resp 20 20 18 20 B/P 117/66 Pulse Ox 94 94 97 92 O2 Delivery Room Air Room Air Room Air Room Air 07/22/16 07/22/16 07/22/16 07/22/16 07:00 07:05 08:00 09:52 Temp 97.9 97.9 Pulse 104 Resp 20 20 B/P 122/62 Pulse Ox 96 96 O2 Delivery Room Air Room Air Room Air 07/22/16 10:33 Pulse Ox 96 O2 Delivery Room Air Intake and Output 07/21/16 07/21/16 07/22/16 15:00 23:00 07:00 Intake Total 480 ml 760 ml 200 ml Output Total 700 ml 1125 ml Balance 480 ml 60 ml -925 ml BENITA LUTZ MD Jul 22, 2016 10:40
[2016-07-22 10:54] VITALS: BP 118/55
[2016-07-22] MEDS: LORAZEPAM 0.5 MG TABLET. PO PRN (11:43)
[2016-07-22] MEDS: GENTAMICIN SULFATE 270 MG in IV NORMAL SALINE 100ML 100 ML IV SCH (13:54)
[2016-07-22] MEDS: TPN PER PHARMACY MC PRN (13:55)
[2016-07-22 14:37] VITALS: BP 120/67
[2016-07-22] MEDS: GENTAMICIN PER PHARMACY. MC PRN (18:55)
[2016-07-22 19:00] VITALS: BP 127/81
[2016-07-22] MEDS ORDERED: DEXTROSE 70% IV SCH ×11 (22:00)
[2016-07-22] MEDS ORDERED: AMINO ACIDS IV SCH ×11 (22:00)
[2016-07-22] MEDS ORDERED: [UNRECOGNIZED DRUG - OTHER] IV SCH ×11 (22:00)
[2016-07-22] MEDS ORDERED: TOTAL PARENTERAL NUTRITION IV SCH ×11 (22:00)
[2016-07-22] MEDS: ZOLPIDEM 5 MG TABLET. PO PRN (22:19)
[2016-07-22] MEDS: SIMETHICONE 80 MG TAB.CHEW PO PRN (22:27)
[2016-07-22 23:00] VITALS: BP 119/60
[2016-07-23] VITALS (11 sets, daily range): BP systolic 109–169; BP diastolic 56–97
[2016-07-23] MEDS: HYDROMORPHONE 2 MG/ML VIAL. IV PRN ×5 (03:16→21:11)
[2016-07-23 05:31] LABS: BASO % 1 % (0-3); EOS % 6 % (0-3); LYMPH # 1.1 x10^3/uL (1.0-4.8); LYMPH % 22 % (24-48); MEAN CORPUSCULAR HEMOGLOBIN 25 pg (25-35); MEAN CORPUSCULAR HGB CONC 32 g/dL (31-37); MEAN CORPUSCULAR VOLUME 76 fL (79-100); MONO % 7 % (0-9); NEUT % 65 % (31-73); PLATELET COUNT 355 x10^3/uL (140-400); RED CELL DISTRIBUTION WIDTH 18.3 % (11.5-14.5)
[2016-07-23 05:36] LABS: HEMATOCRIT 20.6 % (36.0-47.0); HEMOGLOBIN 6.7 g/dL (12.0-15.5)
[2016-07-23 05:43] LABS: CALCIUM 8.3 mg/dL (8.5-10.1); CREATININE 0.6 mg/dL (0.6-1.0); POTASSIUM 4.5 mmol/L (3.5-5.1)
[2016-07-23 05:44] LABS: MAGNESIUM 2.3 mg/dL (1.8-2.4); PHOSPHORUS 4.7 mg/dL (2.6-4.7)
[2016-07-23] MEDS: PANTOPRAZOLE 40 MG TABLET. PO SCH (07:58)
[2016-07-23] MEDS: ZINC OXIDE 20% TOPICAL OINTMENT 28GM TUBE. TP SCH ×2 (08:34→20:26)
[2016-07-23] MEDS: LIDOCAINE 5% TOPICAL OINTMENT 35GM TUBE. TP SCH ×2 (08:34→20:26)
[2016-07-23] MEDS: LORAZEPAM 0.5 MG TABLET. PO PRN ×2 (08:36→21:10)
[2016-07-23] MEDS: SIMETHICONE 80 MG TAB.CHEW PO PRN (12:46)
--- NOTE | 2016-07-23 12:46 | PDOC ---
PROGRESS NOTES Subjective Subjective feels better. hgb low 6.6 and will transfuse.afebrile. blood cultures negative. Objective Objective Vital Signs Date Time Temp Pulse Resp B/P Pulse Ox O2 Delivery O2 Flow Rate FiO2 07/23/16 12:41 100 Room Air 07/23/16 11:10 98.1 103 17 169/97 98.1 Intake and Output 07/23/16 07:00 Intake Total 3982 ml Output Total 1575 ml Balance 2407 ml Intake Oral 1320 ml IV Total 2662 ml Output Urine Total 1575 ml Physical Exam Abdomen: Soft Heart: Normal S1, Normal S2 Extremities: No edema General: Alert HEENT: Atraumatic Lungs: Clear to auscultation Neuro: Normal speech Psych/Mental Status: Mental status NL Skin: No rashes Assessment Assessment Problems Medical Problems:. Urinary tract infection. enterococcus and MDR enterobacter 2. Bladder spasms. improved 3. Fever and sepsis improved 4. Enterocutaneous fistula. 5. Enterovesical fistula. 6. Anemia of chronic disease. 7. Moderately severe protein calorie malnutrition. bilateral LE edema resolved (1) Abdominal pain Status: Acute (2) Enterocutaneous fistula Status: Acute (3) Sepsis Status: Acute (4) Urinary tract infection Status: Acute (5) UTI (urinary tract infection) Status: Acute Plan Plan of Care transfuse 2 units prbc continue iv zyvox and gentamycin continue TPN Comment Review of Relevant I have reviewed the following items lucila (where applicable) has been applied. Labs Laboratory Tests Test 07/22/16 06:05 07/23/16 05:00 White Blood Count 4.6x10^3/uL (4.0-11.0) 5.0x10^3/uL (4.0-11.0) Red Blood Count 2.81x10^6/uL (3.50-5.40) 2.70x10^6/uL (3.50-5.40) Hemoglobin 7.1g/dL (12.0-15.5) 6.7g/dL (12.0-15.5) Hematocrit 21.9% (36.0-47.0) 20.6% (36.0-47.0) Mean Corpuscular Volume 78fL (79-100) 76fL (79-100) Mean Corpuscular Hemoglobin 25pg (25-35) 25pg (25-35) Mean Corpuscular Hemoglobin Concent 32g/dL (31-37) 32g/dL (31-37) Red Cell Distribution Width 18.5% (11.5-14.5) 18.3% (11.5-14.5) Platelet Count 325x10^3/uL (140-400) 355x10^3/uL (140-400) Neutrophils (%) (Auto) 66% (31-73) 65% (31-73) Lymphocytes (%) (Auto) 19% (24-48) 22% (24-48) Monocytes (%) (Auto) 6% (0-9) 7% (0-9) Eosinophils (%) (Auto) 8% (0-3) 6% (0-3) Basophils (%) (Auto) 1% (0-3) 1% (0-3) Neutrophils # (Auto) 3.0x10^3uL (1.8-7.7) 3.2x10^3uL (1.8-7.7) Lymphocytes # (Auto) 0.9x10^3/uL (1.0-4.8) 1.1x10^3/uL (1.0-4.8) Monocytes # (Auto) 0.3x10^3/uL (0.0-1.1) 0.3x10^3/uL (0.0-1.1) Eosinophils # (Auto) 0.4x10^3/uL (0.0-0.7) 0.3x10^3/uL (0.0-0.7) Basophils # (Auto) 0.0x10^3/uL (0.0-0.2) 0.0x10^3/uL (0.0-0.2) Sodium Level 137mmol/L (136-145) 138mmol/L (136-145) Potassium Level 4.8mmol/L (3.5-5.1) 4.5mmol/L (3.5-5.1) Chloride Level 103mmol/L (98-107) 106mmol/L (98-107) Carbon Dioxide Level 28mmol/L (21-32) 27mmol/L (21-32) Anion Gap 6 (6-14) 5 (6-14) Blood Urea Nitrogen 11mg/dL (7-20) 10mg/dL (7-20) Creatinine 0.6mg/dL (0.6-1.0) 0.6mg/dL (0.6-1.0) Estimated GFR (Cockcroft-Gault) 123.0 123.0 Glucose Level 97mg/dL (70-99) 104mg/dL (70-99) Calcium Level 8.4mg/dL (8.5-10.1) 8.3mg/dL (8.5-10.1) Phosphorus Level 4.7mg/dL (2.6-4.7) Magnesium Level 2.3mg/dL (1.8-2.4) Laboratory Tests Test 07/23/16 05:00 White Blood Count 5.0x10^3/uL (4.0-11.0) Red Blood Count 2.70x10^6/uL (3.50-5.40) Hemoglobin 6.7g/dL (12.0-15.5) Hematocrit 20.6% (36.0-47.0) Mean Corpuscular Volume 76fL (79-100) Mean Corpuscular Hemoglobin 25pg (25-35) Mean Corpuscular Hemoglobin Concent 32g/dL (31-37) Red Cell Distribution Width 18.3% (11.5-14.5) Platelet Count 355x10^3/uL (140-400) Neutrophils (%) (Auto) 65% (31-73) Lymphocytes (%) (Auto) 22% (24-48) Monocytes (%) (Auto) 7% (0-9) Eosinophils (%) (Auto) 6% (0-3) Basophils (%) (Auto) 1% (0-3) Neutrophils # (Auto) 3.2x10^3uL (1.8-7.7) Lymphocytes # (Auto) 1.1x10^3/uL (1.0-4.8) Monocytes # (Auto) 0.3x10^3/uL (0.0-1.1) Eosinophils # (Auto) 0.3x10^3/uL (0.0-0.7) Basophils # (Auto) 0.0x10^3/uL (0.0-0.2) Sodium Level 138mmol/L (136-145) Potassium Level 4.5mmol/L (3.5-5.1) Chloride Level 106mmol/L (98-107) Carbon Dioxide Level 27mmol/L (21-32) Anion Gap 5 (6-14) Blood Urea Nitrogen 10mg/dL (7-20) Creatinine 0.6mg/dL (0.6-1.0) Estimated GFR (Cockcroft-Gault) 123.0 Glucose Level 104mg/dL (70-99) Calcium Level 8.3mg/dL (8.5-10.1) Phosphorus Level 4.7mg/dL (2.6-4.7) Magnesium Level 2.3mg/dL (1.8-2.4) Microbiology 07/19/16 Blood Culture - Preliminary, Resulted NO GROWTH AFTER 3 DAYS 07/15/16 Urine Culture - Final, Complete 07/15/16 Urine Culture Result 1 (ROYA) - Final, Complete 07/15/16 Urine Culture Result 2 (ROYA) - Final, Complete 07/15/16 Antimicrobic Susceptibility - Final, Complete Medications Current Medications Piperacillin Sod/ Tazobactam Sod/ Sodium Chloride (Zosyn/Iv Sodium Chloride 0.9 % 100ml) 100 ml @ 200 mls/hr 1X ONCE IV Last administered on 07/15/16 22:56; Start 07/15/16 at 22:00; Stop 07/15/16 at 22:29; Status DC Fentanyl Citrate 50 mcg 50 mcg PRN Q15MIN PRN IV PAIN GREATER THAN 3/10 Last administered on 07/16/16 00:30; Start 07/15/16 at 21:45; Stop 07/16/16 at 02:00; Status DC Sodium Chloride 1,000 ml @ 1,000 mls/hr 1X ONCE IV Last administered on 21:59; Start 07/15/16 at 22:00; Stop 07/15/16 at 22:59; Status DC Sodium Chloride (Iv Sodium Chloride 0.9% 500ml Bag) 500 ml @ 500 mls/hr 1X ONCE IV Last administered on 07/15/16 22:00; Start 07/15/16 at 22:00; Stop at 22:59; Status DC Ondansetron HCl (Zofran) 4 mg PRN Q8HRS PRN IV NAUSEA/VOMITING; Start 07/15/16 at 23:30; Stop 07/16/16 at 08:52; Status DC Fentanyl Citrate 50 mcg 50 mcg PRN Q2HR PRN IV SEVERE PAIN Last administered on 07/16/16 08:10; Start 07/15/16 at 23:30; Stop 07/16/16 at 08:52; Status DC Sodium Chloride (Iv Sodium Chloride 0.9% 1000ml Bag) 1,000 ml @ 150 mls/hr Q6H40M IV Last administered on 07/15/16 02:00; Start 07/15/16 at 23:45; Stop 07/16/16 at 08:52; Status DC Acetaminophen (Tylenol) 650 mg PRN Q4HRS PRN PO FEVER; Start 07/15/16 at 23:30; Stop 07/16/16 at 23:29; Status DC Info (Do NOT chart on this placeholder) 1 each PRN DAILY PRN MC NEEDS VERIFICATION; Start 07/16/16 at 03:00; Status Cancel Acetaminophen 650 mg 650 mg PRN Q4HRS PRN PO MILD PAIN / TEMP Last administered on 07/21/16 08:57; Start 07/16/16 at 08:45 Piperacillin Sod/ Tazobactam Sod 3.375 gm/Sodium Chloride 50 ml @ 100 mls/hr Q6HRS IV Last administered on 07/18/16 05:50; Start 07/16/16 at 10:00; Stop 07/18 at 13:28; Status DC Linezolid (Zyvox Premix) 300 ml @ 300 mls/hr Q12HR IV Last administered on 07/18 08:34; Start 07/16/16 at 10:00; Stop 07/18/16 at 13:28; Status DC Hydromorphone HCl (Dilaudid) 2 mg PRN Q4HRS PRN IV PAIN Last administered on 12:41; Start 07/16/16 at 08:45 Hydromorphone HCl (Dilaudid) 4 mg PRN Q4HRS PRN IV PAIN Last administered on 01:26; Start 07/16/16 at 08:45 Pantoprazole Sodium (Protonix) 40 mg DAILYAC PO Last administered on 07/23/16 07:58; Start 07/16/16 at 09:30 Hyoscyamine (Anaspaz) 0.125 mg Q6HRS PO Last administered on 07/20/16 05:20; Start 07/16/16 at 12:00; Stop 07/20/16 at 08:58; Status DC Phenazopyridine HCl (Pyridium) 200 mg TID PO Last administered on 07/20/16 08: 25; Start 07/16/16 at 09:30; Stop 07/20/16 at 08:58; Status DC Lorazepam (Ativan) 0.5 mg PRN BID PRN PO ANXIETY / AGITATION Last administered on 07/23/16 08:36; Start 07/16/16 at 08:45 Simethicone (Gas-X) 80 mg PRN Q4HRS PRN PO GAS / BLOATING Last administered on 07/22/16 22:27; Start 07/16/16 at 08:45 Zolpidem Tartrate 5 mg 5 mg PRN QHS PRN PO INSOMNIA Last administered on 22:19; Start 07/16/16 at 08:45 Potassium Chloride/Dextrose/ Sod Cl 1,000 ml @ 80 mls/hr [id number] IV Last administered on 07/16/16 10:54; Start 07/16/16 at 09:30; Stop 07/16/16 at 21:59; Status DC Fluconazole/ Sodium Chloride (Diflucan 200mg/ 100ml Premix) 100 ml @ 100 mls/ hr Q24H IV Last administered on 07/18/16 11:43; Start 07/16/16 at 11:00; Stop at 13:28; Status DC Info 1 each 1 each PRN DAILY PRN MC SEE COMMENTS Last administered on 07/22/16 13:55; Start 07/16/16 at 10:00 Sodium Chloride 220 meq/Sodium Acetate 90 meq/ Potassium Chloride 50 meq/ Potassium Acetate 15 meq/Potassium Phosphate 10 mmol/ Magnesium Sulfate 50 meq/ Calcium Gluconate 6 meq/ Multivitamins/ Minerals 10 ml/ Chromium/Copper/ Manganese/Seleni/ Zn 1 ml/Total Parenteral Nutrition/Amino Acids/Dextro... 1, 920 ml @ 80 mls/hr TPN CONT IV ; Start 07/16/16 at 22:00; Stop 07/16/16 at 22:00 ; Status DC Sodium Chloride/ Sodium Acetate/ Potassium Chloride/ Potassium Acetate/ Potassium Phosphate/ Magnesium Sulfate/ Calcium Gluconate/ Multivitamins/ Minerals/Chromium/ Copper/Manganese/ Seleni/Zn/Total Parenteral Nutrition/Amino Acids/Dextrose/ Fat Emulsion Intravenous (Sodium Chlori... 1,820 ml @ 75.833 mls/ hr TPN CONT IV Last administered on 07/16/16 21:03; Start 07/16/16 at 22: 00; Stop 07/17/16 at 21:59; Status DC Ondansetron HCl (Zofran) 4 mg PRN Q6HRS PRN IV NAUSEA/VOMITING Last administered on 07/21/16 08:48; Start 07/16/16 at 17:15 Diphenhydramine HCl (Benadryl) 25 mg PRN Q6HRS PRN PO ITCHING Last administered on 07/21/16 13:31; Start 07/16/16 at 17:45 Lidocaine (Xylocaine) 1 sang BID TP Last administered on 07/23/16 08:34; Start 07/17/16 at 09:00 Zinc Oxide 1 sang 1 sang BID TP Last administered on 07/23/16 08:34; Start at 09:30 Sodium Chloride/ Sodium Acetate/ Potassium Chloride/ Potassium Acetate/ Potassium Phosphate/ Magnesium Sulfate/ Calcium Gluconate/ Multivitamins/ Minerals/Chromium/ Copper/Manganese/ Seleni/Zn/Total Parenteral Nutrition/Amino Acids/Dextrose/ Fat Emulsion Intravenous (Sodium Chlori... 1,920 ml @ 80 mls/ hr TPN CONT IV Last administered on 07/17/16 22:13; Start 07/17/16 at 22:00; Stop 07/18/16 at 21:59; Status DC Furosemide 40 mg 40 mg 1X ONCE IVP Last administered on 07/18/16 11:43; Start 07/18/16 at 11:00; Stop 07/18/16 at 11:07; Status DC Sodium Chloride 220 meq/Sodium Acetate 90 meq/ Potassium Chloride 50 meq/ Potassium Acetate 15 meq/Potassium Phosphate 10 mmol/ Magnesium Sulfate 50 meq/ Calcium Gluconate 3 meq/ Multivitamins/ Minerals 10 ml/ Chromium/Copper/ Manganese/Seleni/ Zn 1 ml/Total Parenteral Nutrition/Amino Acids/Dextro... 1, 920 ml @ 80 mls/hr TPN CONT IV Last administered on 07/19/16 00:03; Start 07/18/16 at 22:00; Stop 07/19/16 at 21:59; Status DC Meropenem 1 gm/ Sodium Chloride 100 ml @ 200 mls/hr Q8HRS IV Last administered on 07/20/16 05:21; Start 07/18/16 at 14:00; Stop 07/20/16 at 11:25; Status DC Micafungin Sodium 100 mg/Dextrose 100 ml @ 100 mls/hr Q24H IV Last administered on 07/19/16 15:05; Start 07/18/16 at 14:00; Stop 07/20/16 at 11:25; Status DC Daptomycin/Sodium Chloride (Cubicin/Iv Sodium Chloride 0.9% 50ml) 50 ml @ 100 mls/hr Q24H IV Last administered on 07/19/16 16:56; Start 07/18/16 at 15:00; Stop 07/20/16 at 11:25; Status DC Alteplase, Recombinant (Cathflo) 2 mg 1X ONCE INT CAT Last administered on 07/19 06:24; Start 07/19/16 at 07:00; Stop 07/19/16 at 07:01; Status DC Gentamicin Sulfate 1 each 1 each PRN DAILY PRN MC SEE COMMENTS Last administered on 07/22/16 18:55; Start 07/19/16 at 12:15 Gentamicin Sulfate/Sodium Chloride (Iv Sodium Chloride 0.9% 100ml) 106.75 ml @ 106.75 mls/hr Q24H IV Last administered on 07/22/16 13:54; Start 07/19/16 at 13: 00 Gentamicin Sulfate 1 each 1 each 1X ONCE MC Last administered on 07/19/16 23: 00; Start 07/19/16 at 23:00; Stop 07/19/16 at 23:01; Status DC Sodium Chloride/ Sodium Acetate/ Potassium Chloride/ Potassium Acetate/ Potassium Phosphate/ Magnesium Sulfate/ Calcium Gluconate/ Multivitamins/ Minerals/Chromium/ Copper/Manganese/ Seleni/Zn/Total Parenteral Nutrition/Amino Acids/Dextrose/ Fat Emulsion Intravenous (Sodium Chlori... 1,920 ml @ 80 mls/ hr TPN CONT IV Last administered on 07/19/16 20:51; Start 07/19/16 at 22:00; Stop 07/20/16 at 21:59; Status DC Hyoscyamine (Anaspaz) 0.125 mg PRN Q6HRS PRN PO BLADDER SPASM; Start 07/20/16 at 09:00 Phenazopyridine HCl 200 mg 200 mg PRN TID PRN PO BLADDER SPASM Last administered on 07/21/16 20:14; Start 07/20/16 at 09:00 Linezolid 300 ml @ 300 mls/hr Q12HR IV Last administered on 07/23/16 07:59; Start 07/20/16 at 12:00 Sodium Chloride 220 meq/Sodium Acetate 90 meq/ Potassium Chloride 50 meq/ Potassium Acetate 15 meq/Potassium Phosphate 10 mmol/ Magnesium Sulfate 50 meq/ Calcium Gluconate 3 meq/ Multivitamins/ Minerals 10 ml/ Chromium/Copper/ Manganese/Seleni/ Zn 1 ml/Total Parenteral Nutrition/Amino Acids/Dextro... 1, 920 ml @ 80 mls/hr TPN CONT IV Last administered on 07/20/16 21:30; Start 07/20/16 at 22:00; Stop 07/21/16 at 21:59; Status DC Sodium Chloride/ Sodium Acetate/ Potassium Chloride/ Potassium Acetate/ Potassium Phosphate/ Magnesium Sulfate/ Multivitamins/ Minerals/Chromium/ Copper /Manganese/ Seleni/Zn/Total Parenteral Nutrition/Amino Acids/Dextrose/ Fat Emulsion Intravenous (Sodium Chloride/ Potass... 1,920 ml @ 80 mls/hr TPN CONT IV Last administered on 07/21/16 22:05; Start 07/21/16 at 22:00; Stop at 21:59; Status DC Alteplase, Recombinant 2 mg 2 mg PRN DAILY PRN INT CAT INFLAMMATION; Start 07/21 at 15:00 Sodium Chloride/ Sodium Acetate/ Potassium Chloride/ Potassium Acetate/ Potassium Phosphate/ Magnesium Sulfate/ Multivitamins/ Minerals/Chromium/ Copper /Manganese/ Seleni/Zn/Total Parenteral Nutrition/Amino Acids/Dextrose/ Fat Emulsion Intravenous (Sodium Chloride/ Potass... 1,920 ml @ 80 mls/hr TPN CONT IV Last administered on 07/22/16t 20:53; Start 07/22/16 at 22:00; Stop at 21:59 Active Scripts Active Dilaudid (Hydromorphone Hcl) 4 Mg Tablet 4 Mg PO Q6HRS Phenazopyridine Hcl 200 Mg Tablet 200 Mg PO PRN TID PRN FENTANYL 50mcg/hr (Fentanyl) 1 Each Patch.td72 1 Patch TD Q3DAYS Anaspaz (Hyoscyamine Sulfate) 0.125 Mg Tab.rapdis 0.125 Mg PO Q6HRS PRN Cefpodoxime Proxetil 200 Mg Tablet 200 Mg PO BID Sertraline Hcl 50 Mg Tablet 100 Mg PO DAILY 30 Days Protonix (Pantoprazole Sodium) 40 Mg Tablet.dr 1 Tab PO DAILY Zinc Oxide 56.7 Gm Oint...g. 1 Sang TP BID Lidocaine 35.44 Gm Oint...g. 1 Sang TP BID Ondansetron Odt (Ondansetron) 4 Mg Tab.rapdis 8 Mg PO PRN Q8HRS PRN Gas-X (Simethicone) 80 Mg Tab.chew 80 Mg PO PRN QID PRN Reported Lorazepam 0.5 Mg Tablet 0.5 Mg PO PRN BID PRN Vitals/I & O Vital Sign - Last 24 Hours 07/22/16 07/22/16 07/22/16 07/22/16 13:53 14:37 18:21 19:00 Temp 97.9 97.3 97.9 97.3 Pulse 111 119 Resp 18 B/P 120/67 127/81 Pulse Ox 99 96 99 96 O2 Delivery Room Air Room Air Room Air Room Air 07/22/16 07/22/16 07/22/16 07/23/16 20:15 22:19 23:00 00:43 Temp 98.4 99.1 98.4 99.1 Pulse 105 Resp 20 20 B/P 119/60 Pulse Ox 99 95 O2 Delivery Room Air Room Air Room Air 07/23/16 07/23/16 07/23/16 07/23/16 03:16 03:32 03:50 07:18 Temp 98.1 97.7 98.1 97.7 Pulse 110 96 Resp 18 17 B/P 130/69 128/74 Pulse Ox 95 97 O2 Delivery Room Air Room Air Room Air 07/23/16 07/23/16 07/23/16 07/23/16 08:04 08:20 08:38 11:10 Temp 98.1 98.1 Pulse 103 Resp 17 B/P 169/97 Pulse Ox 95 95 100 O2 Delivery Room Air Room Air Room Air Room Air 07/23/16 12:41 Pulse Ox 100 O2 Delivery Room Air Intake and Output 07/22/16 07/22/16 07/23/16 15:00 23:00 07:00 Intake Total 200 ml 500 ml 3282 ml Output Total 600 ml 975 ml Balance 200 ml -100 ml 2307 ml BENITA LUTZ MD Jul 23, 2016 12:46
--- NOTE | 2016-07-23 12:57 | PDOC ---
Infectious Disease Note Subjective Subjective Feeling well. Excited to be a great grandma soon TPN No tinnitus or vertigo ROS ROS GEN: Denies fevers, chills, sweats HEENT: Denies blurred vision, sore throat CV: Denies chest pain RESP: Denies shortness of air, cough GI: Denies n/v/d NEURO: Denies confusion, dizziness MSK: Denies weakness, joint pain/swelling Vital Sign Vital Signs Vital Signs Date Time Temp Pulse Resp B/P Pulse Ox O2 Delivery O2 Flow Rate FiO2 07/23/16 12:41 100 Room Air 07/23/16 11:10 98.1 103 17 169/97 98.1 Physical Exam PHYSICAL EXAM GENERAL: Propped up in bed, smiling, laughing HEENT: OC/OP pink and dry NECK: Supple, LUNGS: Clear HEART: S1S2, no gallop, no murmur ABD: BS present, soft, NT. + fistula EXT: No cyanosis. BLE edema WOOL BROKER: awake, oriented x 3, no focal neurologic deficit SKIN: No rash Right-sided chest PICC. clean Labs Lab Laboratory Tests Test 07/23/16 05:00 White Blood Count 5.0x10^3/uL (4.0-11.0) Red Blood Count 2.70x10^6/uL (3.50-5.40) Hemoglobin 6.7g/dL (12.0-15.5) Hematocrit 20.6% (36.0-47.0) Mean Corpuscular Volume 76fL (79-100) Mean Corpuscular Hemoglobin 25pg (25-35) Mean Corpuscular Hemoglobin Concent 32g/dL (31-37) Red Cell Distribution Width 18.3% (11.5-14.5) Platelet Count 355x10^3/uL (140-400) Neutrophils (%) (Auto) 65% (31-73) Lymphocytes (%) (Auto) 22% (24-48) Monocytes (%) (Auto) 7% (0-9) Eosinophils (%) (Auto) 6% (0-3) Basophils (%) (Auto) 1% (0-3) Neutrophils # (Auto) 3.2x10^3uL (1.8-7.7) Lymphocytes # (Auto) 1.1x10^3/uL (1.0-4.8) Monocytes # (Auto) 0.3x10^3/uL (0.0-1.1) Eosinophils # (Auto) 0.3x10^3/uL (0.0-0.7) Basophils # (Auto) 0.0x10^3/uL (0.0-0.2) Sodium Level 138mmol/L (136-145) Potassium Level 4.5mmol/L (3.5-5.1) Chloride Level 106mmol/L (98-107) Carbon Dioxide Level 27mmol/L (21-32) Anion Gap 5 (6-14) Blood Urea Nitrogen 10mg/dL (7-20) Creatinine 0.6mg/dL (0.6-1.0) Estimated GFR (Cockcroft-Gault) 123.0 Glucose Level 104mg/dL (70-99) Calcium Level 8.3mg/dL (8.5-10.1) Phosphorus Level 4.7mg/dL (2.6-4.7) Magnesium Level 2.3mg/dL (1.8-2.4) Micro BLOOD CULTURE Preliminary NO GROWTH AFTER 3 DAYS Objective Assessment Fever and chills - improving Daily vomit without nausea Acute Anemia - improving MDR Enterobacter and Amp res Enterococcus in urine. 07/15 EC fistula Enterovesicular fistula Abdominal excoriation Anemia Plan Plan of Care Cont Gent (07/19) and Zyvox wean soon Repeat BC NGTD Monitor lab values C. diff negative Blood transfusion underway Attending Co-Sign Attending Co-Sign The patient was seen and interviewed as well as examined at the bedside. The chart was reviewed. The case was discussed. Agree with the plan of care. MAYELIN COLEMAN APRN Jul 23, 2016 12:57 ABBY MOTT MD Jul 23, 2016 13:47
[2016-07-23] MEDS: TPN PER PHARMACY MC PRN (13:23)
[2016-07-23] MEDS: GENTAMICIN SULFATE 270 MG in IV NORMAL SALINE 100ML 100 ML IV SCH (14:11)
[2016-07-23] MEDS: GENTAMICIN PER PHARMACY. MC PRN (19:16)
[2016-07-23] MEDS ORDERED: TOTAL PARENTERAL NUTRITION IV SCH ×11 (22:00)
[2016-07-23] MEDS ORDERED: AMINO ACIDS IV SCH ×11 (22:00)
[2016-07-23] MEDS ORDERED: [UNRECOGNIZED DRUG - OTHER] IV SCH ×11 (22:00)
[2016-07-23] MEDS ORDERED: GENTAMICIN RANDOM LEVEL. MC ONE (22:00)
[2016-07-23] MEDS ORDERED: DEXTROSE 70% IV SCH ×11 (22:00)
[2016-07-24] VITALS (9 sets, daily range): BP systolic 136–161; BP diastolic 68–113
[2016-07-24] MEDS: HYDROMORPHONE 2 MG/ML VIAL. IV PRN ×7 (01:57→22:45)
[2016-07-24 06:17] LABS: BASO # 0.1 x10^3/uL (0.0-0.2); BASO % 1 % (0-3); EOS % 5 % (0-3); HEMATOCRIT 27.9 % (36.0-47.0); LYMPH # 1.1 x10^3/uL (1.0-4.8); LYMPH % 18 % (24-48); MEAN CORPUSCULAR HEMOGLOBIN 26 pg (25-35); MEAN CORPUSCULAR HGB CONC 32 g/dL (31-37); MEAN CORPUSCULAR VOLUME 81 fL (79-100); MONO % 5 % (0-9); NEUT % 71 % (31-73); PLATELET COUNT 353 x10^3/uL (140-400); RED BLOOD COUNT 3.47 x10^6/uL (3.50-5.40); RED CELL DISTRIBUTION WIDTH 19.1 % (11.5-14.5)
[2016-07-24 06:37] LABS: CALCIUM 8.6 mg/dL (8.5-10.1); CREATININE 0.6 mg/dL (0.6-1.0); POTASSIUM 4.5 mmol/L (3.5-5.1)
[2016-07-24 06:40] LABS: MAGNESIUM 2.1 mg/dL (1.8-2.4); PHOSPHORUS 4.4 mg/dL (2.6-4.7)
--- NOTE | 2016-07-24 08:36 | PDOC ---
PROGRESS NOTES Subjective Subjective feels better. hgb up to 9.0 after 2 units prbc. lab reviewed. afebrile. concurs with removing yang today. Objective Objective Vital Signs Date Time Temp Pulse Resp B/P Pulse Ox O2 Delivery O2 Flow Rate FiO2 07/24/16 07:00 97.5 92 20 136/68 98 Room Air 97.5 Intake and Output 07/24/16 07:00 Intake Total 1340 ml Output Total 1250 ml Balance 90 ml Intake Oral 1300 ml Blood Product IV Normal Saline Flush 40 ml Output Urine Total 1250 ml # Voids 1 Physical Exam Abdomen: Soft Heart: Regular rate, Normal S1, Normal S2 Extremities: No edema General: Alert HEENT: Atraumatic Lungs: Clear to auscultation Neuro: Normal speech Psych/Mental Status: Mental status NL Skin: No rashes Assessment Assessment Problems Medical Problems: Urinary tract infection. enterococcus and MDR enterobacter 2. Bladder spasms. improved 3. Fever and sepsis resolved 4. Enterocutaneous fistula. 5. Enterovesical fistula. 6. Anemia of chronic disease. 7. Moderately severe protein calorie malnutrition. bilateral LE edema resolved (1) Abdominal pain Status: Acute (2) Enterocutaneous fistula Status: Acute (3) Sepsis Status: Acute (4) Urinary tract infection Status: Acute (5) UTI (urinary tract infection) Status: Acute Plan Plan of Care d/c yang continue TPN antibiotics per ID Comment Review of Relevant I have reviewed the following items lucila (where applicable) has been applied. Labs Laboratory Tests Test 07/23/16 05:00 07/24/16 06:00 White Blood Count 5.0x10^3/uL (4.0-11.0) 6.0x10^3/uL (4.0-11.0) Red Blood Count 2.70x10^6/uL (3.50-5.40) 3.47x10^6/uL (3.50-5.40) Hemoglobin 6.7g/dL (12.0-15.5) 9.0g/dL (12.0-15.5) Hematocrit 20.6% (36.0-47.0) 27.9% (36.0-47.0) Mean Corpuscular Volume 76fL (79-100) 81fL (79-100) Mean Corpuscular Hemoglobin 25pg (25-35) 26pg (25-35) Mean Corpuscular Hemoglobin Concent 32g/dL (31-37) 32g/dL (31-37) Red Cell Distribution Width 18.3% (11.5-14.5) 19.1% (11.5-14.5) Platelet Count 355x10^3/uL (140-400) 353x10^3/uL (140-400) Neutrophils (%) (Auto) 65% (31-73) 71% (31-73) Lymphocytes (%) (Auto) 22% (24-48) 18% (24-48) Monocytes (%) (Auto) 7% (0-9) 5% (0-9) Eosinophils (%) (Auto) 6% (0-3) 5% (0-3) Basophils (%) (Auto) 1% (0-3) 1% (0-3) Neutrophils # (Auto) 3.2x10^3uL (1.8-7.7) 4.3x10^3uL (1.8-7.7) Lymphocytes # (Auto) 1.1x10^3/uL (1.0-4.8) 1.1x10^3/uL (1.0-4.8) Monocytes # (Auto) 0.3x10^3/uL (0.0-1.1) 0.3x10^3/uL (0.0-1.1) Eosinophils # (Auto) 0.3x10^3/uL (0.0-0.7) 0.3x10^3/uL (0.0-0.7) Basophils # (Auto) 0.0x10^3/uL (0.0-0.2) 0.1x10^3/uL (0.0-0.2) Sodium Level 138mmol/L (136-145) 135mmol/L (136-145) Potassium Level 4.5mmol/L (3.5-5.1) 4.5mmol/L (3.5-5.1) Chloride Level 106mmol/L (98-107) 104mmol/L (98-107) Carbon Dioxide Level 27mmol/L (21-32) 24mmol/L (21-32) Anion Gap 5 (6-14) 7 (6-14) Blood Urea Nitrogen 10mg/dL (7-20) 13mg/dL (7-20) Creatinine 0.6mg/dL (0.6-1.0) 0.6mg/dL (0.6-1.0) Estimated GFR (Cockcroft-Gault) 123.0 123.0 Glucose Level 104mg/dL (70-99) 97mg/dL (70-99) Calcium Level 8.3mg/dL (8.5-10.1) 8.6mg/dL (8.5-10.1) Phosphorus Level 4.7mg/dL (2.6-4.7) 4.4mg/dL (2.6-4.7) Magnesium Level 2.3mg/dL (1.8-2.4) 2.1mg/dL (1.8-2.4) Laboratory Tests Test 07/24/16 06:00 White Blood Count 6.0x10^3/uL (4.0-11.0) Red Blood Count 3.47x10^6/uL (3.50-5.40) Hemoglobin 9.0g/dL (12.0-15.5) Hematocrit 27.9% (36.0-47.0) Mean Corpuscular Volume 81fL (79-100) Mean Corpuscular Hemoglobin 26pg (25-35) Mean Corpuscular Hemoglobin Concent 32g/dL (31-37) Red Cell Distribution Width 19.1% (11.5-14.5) Platelet Count 353x10^3/uL (140-400) Neutrophils (%) (Auto) 71% (31-73) Lymphocytes (%) (Auto) 18% (24-48) Monocytes (%) (Auto) 5% (0-9) Eosinophils (%) (Auto) 5% (0-3) Basophils (%) (Auto) 1% (0-3) Neutrophils # (Auto) 4.3x10^3uL (1.8-7.7) Lymphocytes # (Auto) 1.1x10^3/uL (1.0-4.8) Monocytes # (Auto) 0.3x10^3/uL (0.0-1.1) Eosinophils # (Auto) 0.3x10^3/uL (0.0-0.7) Basophils # (Auto) 0.1x10^3/uL (0.0-0.2) Sodium Level 135mmol/L (136-145) Potassium Level 4.5mmol/L (3.5-5.1) Chloride Level 104mmol/L (98-107) Carbon Dioxide Level 24mmol/L (21-32) Anion Gap 7 (6-14) Blood Urea Nitrogen 13mg/dL (7-20) Creatinine 0.6mg/dL (0.6-1.0) Estimated GFR (Cockcroft-Gault) 123.0 Glucose Level 97mg/dL (70-99) Calcium Level 8.6mg/dL (8.5-10.1) Phosphorus Level 4.4mg/dL (2.6-4.7) Magnesium Level 2.1mg/dL (1.8-2.4) Microbiology 07/19/16 Blood Culture - Preliminary, Resulted NO GROWTH AFTER 4 DAYS 07/15/16 Urine Culture - Final, Complete 07/15/16 Urine Culture Result 1 (ROYA) - Final, Complete 07/15/16 Urine Culture Result 2 (ROYA) - Final, Complete 07/15/16 Antimicrobic Susceptibility - Final, Complete Medications Current Medications Piperacillin Sod/ Tazobactam Sod/ Sodium Chloride (Zosyn/Iv Sodium Chloride 0.9 % 100ml) 100 ml @ 200 mls/hr 1X ONCE IV Last administered on 07/15/16 22:56; Start 07/15/16 at 22:00; Stop 07/15/16 at 22:29; Status DC Fentanyl Citrate 50 mcg 50 mcg PRN Q15MIN PRN IV PAIN GREATER THAN 3/10 Last administered on 07/16/16 00:30; Start 07/15/16 at 21:45; Stop 07/16/16 at 02:00; Status DC Sodium Chloride 1,000 ml @ 1,000 mls/hr 1X ONCE IV Last administered on 21:59; Start 07/15/16 at 22:00; Stop 07/15/16 at 22:59; Status DC Sodium Chloride (Iv Sodium Chloride 0.9% 500ml Bag) 500 ml @ 500 mls/hr 1X ONCE IV Last administered on 07/15/16 22:00; Start 07/15/16 at 22:00; Stop at 22:59; Status DC Ondansetron HCl (Zofran) 4 mg PRN Q8HRS PRN IV NAUSEA/VOMITING; Start 07/15/16 at 23:30; Stop 07/16/16 at 08:52; Status DC Fentanyl Citrate 50 mcg 50 mcg PRN Q2HR PRN IV SEVERE PAIN Last administered on 07/16/16 08:10; Start 07/15/16 at 23:30; Stop 07/16/16 at 08:52; Status DC Sodium Chloride (Iv Sodium Chloride 0.9% 1000ml Bag) 1,000 ml @ 150 mls/hr Q6H40M IV Last administered on 07/15/16 02:00; Start 07/15/16 at 23:45; Stop 07/16/16 at 08:52; Status DC Acetaminophen (Tylenol) 650 mg PRN Q4HRS PRN PO FEVER; Start 07/15/16 at 23:30; Stop 07/16/16 at 23:29; Status DC Info (Do NOT chart on this placeholder) 1 each PRN DAILY PRN MC NEEDS VERIFICATION; Start 07/16/16 at 03:00; Status Cancel Acetaminophen 650 mg 650 mg PRN Q4HRS PRN PO MILD PAIN / TEMP Last administered on 07/21/16 08:57; Start 07/16/16 at 08:45 Piperacillin Sod/ Tazobactam Sod 3.375 gm/Sodium Chloride 50 ml @ 100 mls/hr Q6HRS IV Last administered on 07/18/16 05:50; Start 07/16/16 at 10:00; Stop 07/18 at 13:28; Status DC Linezolid (Zyvox Premix) 300 ml @ 300 mls/hr Q12HR IV Last administered on 07/18 08:34; Start 07/16/16 at 10:00; Stop 07/18/16 at 13:28; Status DC Hydromorphone HCl (Dilaudid) 2 mg PRN Q4HRS PRN IV PAIN Last administered on 05:57; Start 07/16/16 at 08:45 Hydromorphone HCl (Dilaudid) 4 mg PRN Q4HRS PRN IV PAIN Last administered on 01:26; Start 07/16/16 at 08:45 Pantoprazole Sodium (Protonix) 40 mg DAILYAC PO Last administered on 07/23/16 07:58; Start 07/16/16 at 09:30 Hyoscyamine (Anaspaz) 0.125 mg Q6HRS PO Last administered on 07/20/16 05:20; Start 07/16/16 at 12:00; Stop 07/20/16 at 08:58; Status DC Phenazopyridine HCl (Pyridium) 200 mg TID PO Last administered on 07/20/16 08: 25; Start 07/16/16 at 09:30; Stop 07/20/16 at 08:58; Status DC Lorazepam (Ativan) 0.5 mg PRN BID PRN PO ANXIETY / AGITATION Last administered on 07/23/16 21:10; Start 07/16/16 at 08:45 Simethicone (Gas-X) 80 mg PRN Q4HRS PRN PO GAS / BLOATING Last administered on 07/23/16 12:46; Start 07/16/16 at 08:45 Zolpidem Tartrate 5 mg 5 mg PRN QHS PRN PO INSOMNIA Last administered on 22:19; Start 07/16/16 at 08:45 Potassium Chloride/Dextrose/ Sod Cl 1,000 ml @ 80 mls/hr [id number] IV Last administered on 07/16/16 10:54; Start 07/16/16 at 09:30; Stop 07/16/16 at 21:59; Status DC Fluconazole/ Sodium Chloride (Diflucan 200mg/ 100ml Premix) 100 ml @ 100 mls/ hr Q24H IV Last administered on 07/18/16 11:43; Start 07/16/16 at 11:00; Stop at 13:28; Status DC Info 1 each 1 each PRN DAILY PRN MC SEE COMMENTS Last administered on 07/23/16 13:23; Start 07/16/16 at 10:00 Sodium Chloride 220 meq/Sodium Acetate 90 meq/ Potassium Chloride 50 meq/ Potassium Acetate 15 meq/Potassium Phosphate 10 mmol/ Magnesium Sulfate 50 meq/ Calcium Gluconate 6 meq/ Multivitamins/ Minerals 10 ml/ Chromium/Copper/ Manganese/Seleni/ Zn 1 ml/Total Parenteral Nutrition/Amino Acids/Dextro... 1, 920 ml @ 80 mls/hr TPN CONT IV ; Start 07/16/16 at 22:00; Stop 07/16/16 at 22:00 ; Status DC Sodium Chloride/ Sodium Acetate/ Potassium Chloride/ Potassium Acetate/ Potassium Phosphate/ Magnesium Sulfate/ Calcium Gluconate/ Multivitamins/ Minerals/Chromium/ Copper/Manganese/ Seleni/Zn/Total Parenteral Nutrition/Amino Acids/Dextrose/ Fat Emulsion Intravenous (Sodium Chlori... 1,820 ml @ 75.833 mls/ hr TPN CONT IV Last administered on 07/16/16 21:03; Start 07/16/16 at 22: 00; Stop 07/17/16 at 21:59; Status DC Ondansetron HCl (Zofran) 4 mg PRN Q6HRS PRN IV NAUSEA/VOMITING Last administered on 07/21/16 08:48; Start 07/16/16 at 17:15 Diphenhydramine HCl (Benadryl) 25 mg PRN Q6HRS PRN PO ITCHING Last administered on 07/21/16 13:31; Start 07/16/16 at 17:45 Lidocaine (Xylocaine) 1 sang BID TP Last administered on 07/23/16 20:26; Start 07/17/16 at 09:00 Zinc Oxide 1 sang 1 sang BID TP Last administered on 07/23/16 20:26; Start at 09:30 Sodium Chloride/ Sodium Acetate/ Potassium Chloride/ Potassium Acetate/ Potassium Phosphate/ Magnesium Sulfate/ Calcium Gluconate/ Multivitamins/ Minerals/Chromium/ Copper/Manganese/ Seleni/Zn/Total Parenteral Nutrition/Amino Acids/Dextrose/ Fat Emulsion Intravenous (Sodium Chlori... 1,920 ml @ 80 mls/ hr TPN CONT IV Last administered on 07/17/16 22:13; Start 07/17/16 at 22:00; Stop 07/18/16 at 21:59; Status DC Furosemide 40 mg 40 mg 1X ONCE IVP Last administered on 07/18/16 11:43; Start 07/18/16 at 11:00; Stop 07/18/16 at 11:07; Status DC Sodium Chloride 220 meq/Sodium Acetate 90 meq/ Potassium Chloride 50 meq/ Potassium Acetate 15 meq/Potassium Phosphate 10 mmol/ Magnesium Sulfate 50 meq/ Calcium Gluconate 3 meq/ Multivitamins/ Minerals 10 ml/ Chromium/Copper/ Manganese/Seleni/ Zn 1 ml/Total Parenteral Nutrition/Amino Acids/Dextro... 1, 920 ml @ 80 mls/hr TPN CONT IV Last administered on 07/19/16 00:03; Start 07/18/16 at 22:00; Stop 07/19/16 at 21:59; Status DC Meropenem 1 gm/ Sodium Chloride 100 ml @ 200 mls/hr Q8HRS IV Last administered on 07/20/16 05:21; Start 07/18/16 at 14:00; Stop 07/20/16 at 11:25; Status DC Micafungin Sodium 100 mg/Dextrose 100 ml @ 100 mls/hr Q24H IV Last administered on 07/19/16 15:05; Start 07/18/16 at 14:00; Stop 07/20/16 at 11:25; Status DC Daptomycin/Sodium Chloride (Cubicin/Iv Sodium Chloride 0.9% 50ml) 50 ml @ 100 mls/hr Q24H IV Last administered on 07/19/16 16:56; Start 07/18/16 at 15:00; Stop 07/20/16 at 11:25; Status DC Alteplase, Recombinant (Cathflo) 2 mg 1X ONCE INT CAT Last administered on 07/19 06:24; Start 07/19/16 at 07:00; Stop 07/19/16 at 07:01; Status DC Gentamicin Sulfate 1 each 1 each PRN DAILY PRN MC SEE COMMENTS Last administered on 07/23/16 19:16; Start 07/19/16 at 12:15 Gentamicin Sulfate/Sodium Chloride (Iv Sodium Chloride 0.9% 100ml) 106.75 ml @ 106.75 mls/hr Q24H IV Last administered on 07/23/16 14:11; Start 07/19/16 at 13: 00 Gentamicin Sulfate 1 each 1 each 1X ONCE MC Last administered on 07/19/16 23: 00; Start 07/19/16 at 23:00; Stop 07/19/16 at 23:01; Status DC Sodium Chloride/ Sodium Acetate/ Potassium Chloride/ Potassium Acetate/ Potassium Phosphate/ Magnesium Sulfate/ Calcium Gluconate/ Multivitamins/ Minerals/Chromium/ Copper/Manganese/ Seleni/Zn/Total Parenteral Nutrition/Amino Acids/Dextrose/ Fat Emulsion Intravenous (Sodium Chlori... 1,920 ml @ 80 mls/ hr TPN CONT IV Last administered on 07/19/16 20:51; Start 07/19/16 at 22:00; Stop 07/20/16 at 21:59; Status DC Hyoscyamine (Anaspaz) 0.125 mg PRN Q6HRS PRN PO BLADDER SPASM; Start 07/20/16 at 09:00 Phenazopyridine HCl 200 mg 200 mg PRN TID PRN PO BLADDER SPASM Last administered on 07/21/16 20:14; Start 07/20/16 at 09:00 Linezolid 300 ml @ 300 mls/hr Q12HR IV Last administered on 07/23/16 20:26; Start 07/20/16 at 12:00 Sodium Chloride 220 meq/Sodium Acetate 90 meq/ Potassium Chloride 50 meq/ Potassium Acetate 15 meq/Potassium Phosphate 10 mmol/ Magnesium Sulfate 50 meq/ Calcium Gluconate 3 meq/ Multivitamins/ Minerals 10 ml/ Chromium/Copper/ Manganese/Seleni/ Zn 1 ml/Total Parenteral Nutrition/Amino Acids/Dextro... 1, 920 ml @ 80 mls/hr TPN CONT IV Last administered on 07/20/16 21:30; Start 07/20/16 at 22:00; Stop 07/21/16 at 21:59; Status DC Sodium Chloride/ Sodium Acetate/ Potassium Chloride/ Potassium Acetate/ Potassium Phosphate/ Magnesium Sulfate/ Multivitamins/ Minerals/Chromium/ Copper /Manganese/ Seleni/Zn/Total Parenteral Nutrition/Amino Acids/Dextrose/ Fat Emulsion Intravenous (Sodium Chloride/ Potass... 1,920 ml @ 80 mls/hr TPN CONT IV Last administered on 07/21/16 22:05; Start 07/21/16 at 22:00; Stop at 21:59; Status DC Alteplase, Recombinant 2 mg 2 mg PRN DAILY PRN INT CAT INFLAMMATION; Start 07/21 at 15:00 Sodium Chloride 220 meq/Sodium Acetate 90 meq/ Potassium Chloride 50 meq/ Potassium Acetate 15 meq/Potassium Phosphate 10 mmol/ Magnesium Sulfate 50 meq/ Multivitamins/ Minerals 10 ml/ Chromium/Copper/ Manganese/Seleni/ Zn 1 ml/Total Parenteral Nutrition/Amino Acids/Dextrose/ Fat Emuls... 1,920 ml @ 80 mls/hr TPN CONT IV Last administered on 07/22/16 20:53; Start 07/22/16 at 22:00; Stop 07/23/16 at 21:59; Status DC Sodium Chloride/ Sodium Acetate/ Potassium Chloride/ Potassium Acetate/ Potassium Phosphate/ Magnesium Sulfate/ Multivitamins/ Minerals/Chromium/ Copper /Manganese/ Seleni/Zn/Total Parenteral Nutrition/Amino Acids/Dextrose/ Fat Emulsion Intravenous (Sodium Chloride/ Potass... 1,920 ml @ 80 mls/hr TPN CONT IV Last administered on 07/23/16 21:16; Start 07/23/16 at 22:00; Stop 07/24 at 21:59 Gentamicin Sulfate 1 each 1X ONCE MC ; Start 07/23/16 at 22:00; Stop 07/23/16 at 22:01; Status Cancel Active Scripts Active Dilaudid (Hydromorphone Hcl) 4 Mg Tablet 4 Mg PO Q6HRS Phenazopyridine Hcl 200 Mg Tablet 200 Mg PO PRN TID PRN FENTANYL 50mcg/hr (Fentanyl) 1 Each Patch.td72 1 Patch TD Q3DAYS Anaspaz (Hyoscyamine Sulfate) 0.125 Mg Tab.rapdis 0.125 Mg PO Q6HRS PRN Cefpodoxime Proxetil 200 Mg Tablet 200 Mg PO BID Sertraline Hcl 50 Mg Tablet 100 Mg PO DAILY 30 Days Protonix (Pantoprazole Sodium) 40 Mg Tablet.dr 1 Tab PO DAILY Zinc Oxide 56.7 Gm Oint...g. 1 Sang TP BID Lidocaine 35.44 Gm Oint...g. 1 Sang TP BID Ondansetron Odt (Ondansetron) 4 Mg Tab.rapdis 8 Mg PO PRN Q8HRS PRN Gas-X (Simethicone) 80 Mg Tab.chew 80 Mg PO PRN QID PRN Reported Lorazepam 0.5 Mg Tablet 0.5 Mg PO PRN BID PRN Vitals/I & O Vital Sign - Last 24 Hours 07/23/16 07/23/16 07/23/16 07/23/16 11:10 12:41 15:15 16:58 Temp 98.1 97.9 98.1 97.9 Pulse 103 99 Resp 18 B/P 169/97 109/59 Pulse Ox 100 100 100 100 O2 Delivery Room Air Room Air Room Air Room Air 07/23/16 07/23/16 07/23/16 07/23/16 17:36 19:00 20:05 20:17 Temp 98.6 98.6 98.6 98.6 Pulse 60 60 Resp 22 B/P 140/90 146/90 Pulse Ox 100 98 O2 Delivery Room Air Room Air Room Air 07/23/16 07/23/16 07/23/16 07/23/16 20:40 21:25 22:35 23:00 Temp 98.4 98.8 98.3 98.3 98.4 98.8 98.3 98.3 Pulse 100 107 95 95 Resp 16 18 18 B/P 132/63 125/56 121/70 121/70 Pulse Ox 98 O2 Delivery Room Air 07/23/16 07/24/16 07/24/16 07/24/16 23:50 00:51 01:51 02:51 Temp 98.6 98.1 98.8 97.7 98.6 98.1 98.8 97.7 Pulse 97 96 98 107 Resp B/P 141/78 145/84 138/78 151/102 07/24/16 07/24/16 03:00 07:00 Temp 97.7 97.5 97.7 97.5 Pulse 107 92 Resp 17 20 B/P 151/102 136/68 Pulse Ox 97 98 O2 Delivery Room Air Room Air Intake and Output 07/23/16 07/23/16 07/24/16 15:00 23:00 07:00 Intake Total 700 ml 640 ml Output Total 1250 ml Balance -550 ml 640 ml BENITA LUTZ MD Jul 24, 2016 08:36
[2016-07-24] MEDS: PANTOPRAZOLE 40 MG TABLET. PO SCH (09:01)
[2016-07-24] MEDS: LIDOCAINE 5% TOPICAL OINTMENT 35GM TUBE. TP SCH ×2 (09:02→21:16)
[2016-07-24] MEDS: ZINC OXIDE 20% TOPICAL OINTMENT 28GM TUBE. TP SCH ×2 (09:02→21:16)
--- NOTE | 2016-07-24 11:02 | PDOC ---
Infectious Disease Note Subjective Subjective Feeling well. TPN No tinnitus or vertigo ROS ROS GEN: Denies fevers, chills, sweats HEENT: Denies blurred vision, sore throat CV: Denies chest pain RESP: Denies shortness of air, cough GI: Denies n/v/d NEURO: Denies confusion, dizziness MSK: Denies weakness, joint pain/swelling Vital Sign Vital Signs Vital Signs Date Time Temp Pulse Resp B/P Pulse Ox O2 Delivery O2 Flow Rate FiO2 07/24/16 09:57 98 Room Air 07/24/16 07:00 97.5 92 20 136/68 97.5 Physical Exam PHYSICAL EXAM GENERAL: NAD, Alert HEENT: PERRL, OC/OP -clear NECK: Supple, no JVD, no LN LUNGS: Clear HEART: S1S2, no gallop, no murmur ABD: Soft, NT, no organomegaly, no rebound. Fistula is soft and clean Avila out EXT: No edema, no cyanosis [employer]IOR [employer]LYST: Alert, oriented x 3, no focal neurologic deficit SKIN: No rash IV: Right chest - clean Labs Lab Laboratory Tests Test 07/24/16 06:00 White Blood Count 6.0x10^3/uL (4.0-11.0) Red Blood Count 3.47x10^6/uL (3.50-5.40) Hemoglobin 9.0g/dL (12.0-15.5) Hematocrit 27.9% (36.0-47.0) Mean Corpuscular Volume 81fL (79-100) Mean Corpuscular Hemoglobin 26pg (25-35) Mean Corpuscular Hemoglobin Concent 32g/dL (31-37) Red Cell Distribution Width 19.1% (11.5-14.5) Platelet Count 353x10^3/uL (140-400) Neutrophils (%) (Auto) 71% (31-73) Lymphocytes (%) (Auto) 18% (24-48) Monocytes (%) (Auto) 5% (0-9) Eosinophils (%) (Auto) 5% (0-3) Basophils (%) (Auto) 1% (0-3) Neutrophils # (Auto) 4.3x10^3uL (1.8-7.7) Lymphocytes # (Auto) 1.1x10^3/uL (1.0-4.8) Monocytes # (Auto) 0.3x10^3/uL (0.0-1.1) Eosinophils # (Auto) 0.3x10^3/uL (0.0-0.7) Basophils # (Auto) 0.1x10^3/uL (0.0-0.2) Sodium Level 135mmol/L (136-145) Potassium Level 4.5mmol/L (3.5-5.1) Chloride Level 104mmol/L (98-107) Carbon Dioxide Level 24mmol/L (21-32) Anion Gap 7 (6-14) Blood Urea Nitrogen 13mg/dL (7-20) Creatinine 0.6mg/dL (0.6-1.0) Estimated GFR (Cockcroft-Gault) 123.0 Glucose Level 97mg/dL (70-99) Calcium Level 8.6mg/dL (8.5-10.1) Phosphorus Level 4.4mg/dL (2.6-4.7) Magnesium Level 2.1mg/dL (1.8-2.4) Micro BLOOD CULTURE Preliminary NO GROWTH AFTER 2 DAYS Enterobacter aerogenes 50,000-100,000 colony forming units per mL URINE CULTURE RES 2 Final Enterococcus faecium 50,000-100,000 colony forming units per mL ANTIMICROBIAL SUSCEPTIBILITY Final Comment S = Susceptible; I = Intermediate; R = Resistant P = Positive; N = Negative MICS are expressed in micrograms per mL Antibiotic RSLT#1 RSLT#2 RSLT#3 RSLT#4 Amoxicillin/Clavulanic Acid R Cefazolin R Cefepime R Ceftriaxone R Cefuroxime R Cephalothin R Ciprofloxacin R R Gentamicin S Imipenem R Levofloxacin R R Nitrofurantoin R I Penicillin R Piperacillin R Tetracycline R R Tobramycin S Trimethoprim/Sulfa S Vancomycin S Objective Assessment Fever and chills - improving Daily vomit without nausea - better Acute Anemia - s/p PRBCs Urine Enterobacter and Amp res Enterococcus / EC fistula Enterovesicular fistula Abdominal excoriation MDR Enterobacter and enterococcus faecium in urine Plan Plan of Care Cont Gent (07/19) and Zyvox wean soon - Avila out Monitor lab values in am C. diff negative D/w family ABBY MOTT MD Jul 24, 2016 11:02
[2016-07-24] MEDS: TPN PER PHARMACY MC PRN (12:08)
[2016-07-24] MEDS: LORAZEPAM 0.5 MG TABLET. PO PRN ×2 (14:10→21:16)
[2016-07-24] MEDS: GENTAMICIN SULFATE 270 MG in IV NORMAL SALINE 100ML 100 ML IV SCH (14:15)
[2016-07-24] MEDS: GENTAMICIN PER PHARMACY. MC PRN (15:53)
[2016-07-24] MEDS ORDERED: AMINO ACIDS IV SCH ×11 (22:00)
[2016-07-24] MEDS ORDERED: TOTAL PARENTERAL NUTRITION IV SCH ×11 (22:00)
[2016-07-24] MEDS ORDERED: DEXTROSE 70% IV SCH ×11 (22:00)
[2016-07-24] MEDS ORDERED: [UNRECOGNIZED DRUG - OTHER] IV SCH ×11 (22:00)
[2016-07-24] MEDS: ZOLPIDEM 5 MG TABLET. PO PRN (22:30)
[2016-07-24] MEDS: SIMETHICONE 80 MG TAB.CHEW PO PRN (22:30)
[2016-07-25] MEDS: HYDROMORPHONE 2 MG/ML VIAL. IV PRN ×5 (02:38→22:26)
[2016-07-25 03:45] VITALS: BP 153/81
[2016-07-25 07:15] LABS: BASO # 0.1 x10^3/uL (0.0-0.2); BASO % 1 % (0-3); EOS % 7 % (0-3); HEMATOCRIT 32.3 % (36.0-47.0); HEMOGLOBIN 10.1 g/dL (12.0-15.5); LYMPH # 1.1 x10^3/uL (1.0-4.8); LYMPH % 19 % (24-48); MEAN CORPUSCULAR HEMOGLOBIN 25 pg (25-35); MEAN CORPUSCULAR HGB CONC 31 g/dL (31-37); MEAN CORPUSCULAR VOLUME 81 fL (79-100); MONO % 4 % (0-9); NEUT % 68 % (31-73); PLATELET COUNT 411 x10^3/uL (140-400); RED CELL DISTRIBUTION WIDTH 19.3 % (11.5-14.5); WHITE BLOOD COUNT 5.9 x10^3/uL (4.0-11.0)
[2016-07-25 07:34] LABS: CALCIUM 8.7 mg/dL (8.5-10.1); CREATININE 0.6 mg/dL (0.6-1.0); POTASSIUM 4.9 mmol/L (3.5-5.1)
[2016-07-25 07:38] VITALS: BP 151/101
[2016-07-25] MEDS: PANTOPRAZOLE 40 MG TABLET. PO SCH (08:58)
[2016-07-25] MEDS: LIDOCAINE 5% TOPICAL OINTMENT 35GM TUBE. TP SCH ×2 (09:08→22:27)
[2016-07-25] MEDS: ZINC OXIDE 20% TOPICAL OINTMENT 28GM TUBE. TP SCH ×2 (09:08→23:40)
[2016-07-25] MEDS: LORAZEPAM 0.5 MG TABLET. PO PRN ×3 (09:29→22:25)
[2016-07-25 11:04] VITALS: BP 157/109
--- NOTE | 2016-07-25 11:19 | PDOC ---
PROGRESS NOTES Subjective Subjective feels better. blood pressure is high and will start amlodipine. afebrile. lab reviewed. potassium 4.9 and will have pharmacist decrease kcl in TPN. voiding well without pain. Objective Objective Vital Signs Date Time Temp Pulse Resp B/P Pulse Ox O2 Delivery O2 Flow Rate FiO2 07/25/16 11:07 100 Room Air 07/25/16 11:04 97.9 113 20 157/109 97.9 Intake and Output 07/25/16 07:00 Intake Total 200 ml Balance 200 ml Intake Oral 200 ml # Voids 2 Physical Exam Abdomen: Soft Heart: Regular rate, Normal S1, Normal S2 Extremities: No edema General: Alert HEENT: Atraumatic Lungs: Clear to auscultation Neuro: Normal speech Psych/Mental Status: Mental status NL Skin: No rashes Assessment Assessment Problems Medical Problems:: Urinary tract infection. enterococcus and MDR enterobacter 2. Bladder spasms. resolved 3. Fever and sepsis resolved 4. Enterocutaneous fistula. 5. Enterovesical fistula. 6. Anemia of chronic disease. 7. Moderately severe protein calorie malnutrition. bilateral LE edema resolved hypertension - bp high (1) Abdominal pain Status: Acute (2) Enterocutaneous fistula Status: Acute (3) Sepsis Status: Acute (4) Urinary tract infection Status: Acute (5) UTI (urinary tract infection) Status: Acute Plan Plan of Care continue iv antibiotics continue TPN but decrease potassium in TPN start amlodipine lab tomorrow Comment Review of Relevant I have reviewed the following items lucila (where applicable) has been applied. Labs Laboratory Tests Test 07/24/16 06:00 07/25/16 06:30 White Blood Count 6.0x10^3/uL (4.0-11.0) 5.9x10^3/uL (4.0-11.0) Red Blood Count 3.47x10^6/uL (3.50-5.40) 4.00x10^6/uL (3.50-5.40) Hemoglobin 9.0g/dL (12.0-15.5) 10.1g/dL (12.0-15.5) Hematocrit 27.9% (36.0-47.0) 32.3% (36.0-47.0) Mean Corpuscular Volume 81fL (79-100) 81fL (79-100) Mean Corpuscular Hemoglobin 26pg (25-35) 25pg (25-35) Mean Corpuscular Hemoglobin Concent 32g/dL (31-37) 31g/dL (31-37) Red Cell Distribution Width 19.1% (11.5-14.5) 19.3% (11.5-14.5) Platelet Count 353x10^3/uL (140-400) 411x10^3/uL (140-400) Neutrophils (%) (Auto) 71% (31-73) 68% (31-73) Lymphocytes (%) (Auto) 18% (24-48) 19% (24-48) Monocytes (%) (Auto) 5% (0-9) 4% (0-9) Eosinophils (%) (Auto) 5% (0-3) 7% (0-3) Basophils (%) (Auto) 1% (0-3) 1% (0-3) Neutrophils # (Auto) 4.3x10^3uL (1.8-7.7) 4.0x10^3uL (1.8-7.7) Lymphocytes # (Auto) 1.1x10^3/uL (1.0-4.8) 1.1x10^3/uL (1.0-4.8) Monocytes # (Auto) 0.3x10^3/uL (0.0-1.1) 0.3x10^3/uL (0.0-1.1) Eosinophils # (Auto) 0.3x10^3/uL (0.0-0.7) 0.4x10^3/uL (0.0-0.7) Basophils # (Auto) 0.1x10^3/uL (0.0-0.2) 0.1x10^3/uL (0.0-0.2) Sodium Level 135mmol/L (136-145) 136mmol/L (136-145) Potassium Level 4.5mmol/L (3.5-5.1) 4.9mmol/L (3.5-5.1) Chloride Level 104mmol/L (98-107) 102mmol/L (98-107) Carbon Dioxide Level 24mmol/L (21-32) 26mmol/L (21-32) Anion Gap 7 (6-14) 8 (6-14) Blood Urea Nitrogen 13mg/dL (7-20) 14mg/dL (7-20) Creatinine 0.6mg/dL (0.6-1.0) 0.6mg/dL (0.6-1.0) Estimated GFR (Cockcroft-Gault) 123.0 123.0 Glucose Level 97mg/dL (70-99) 110mg/dL (70-99) Calcium Level 8.6mg/dL (8.5-10.1) 8.7mg/dL (8.5-10.1) Phosphorus Level 4.4mg/dL (2.6-4.7) Magnesium Level 2.1mg/dL (1.8-2.4) Laboratory Tests Test 07/25/16 06:30 White Blood Count 5.9x10^3/uL (4.0-11.0) Red Blood Count 4.00x10^6/uL (3.50-5.40) Hemoglobin 10.1g/dL (12.0-15.5) Hematocrit 32.3% (36.0-47.0) Mean Corpuscular Volume 81fL (79-100) Mean Corpuscular Hemoglobin 25pg (25-35) Mean Corpuscular Hemoglobin Concent 31g/dL (31-37) Red Cell Distribution Width 19.3% (11.5-14.5) Platelet Count 411x10^3/uL (140-400) Neutrophils (%) (Auto) 68% (31-73) Lymphocytes (%) (Auto) 19% (24-48) Monocytes (%) (Auto) 4% (0-9) Eosinophils (%) (Auto) 7% (0-3) Basophils (%) (Auto) 1% (0-3) Neutrophils # (Auto) 4.0x10^3uL (1.8-7.7) Lymphocytes # (Auto) 1.1x10^3/uL (1.0-4.8) Monocytes # (Auto) 0.3x10^3/uL (0.0-1.1) Eosinophils # (Auto) 0.4x10^3/uL (0.0-0.7) Basophils # (Auto) 0.1x10^3/uL (0.0-0.2) Sodium Level 136mmol/L (136-145) Potassium Level 4.9mmol/L (3.5-5.1) Chloride Level 102mmol/L (98-107) Carbon Dioxide Level 26mmol/L (21-32) Anion Gap 8 (6-14) Blood Urea Nitrogen 14mg/dL (7-20) Creatinine 0.6mg/dL (0.6-1.0) Estimated GFR (Cockcroft-Gault) 123.0 Glucose Level 110mg/dL (70-99) Calcium Level 8.7mg/dL (8.5-10.1) Microbiology 07/19/16 Blood Culture - Final, Complete NO GROWTH AFTER 5 DAYS 07/15/16 Urine Culture - Final, Complete 07/15/16 Urine Culture Result 1 (ROYA) - Final, Complete 07/15/16 Urine Culture Result 2 (ROYA) - Final, Complete 07/15/16 Antimicrobic Susceptibility - Final, Complete Medications Current Medications Piperacillin Sod/ Tazobactam Sod/ Sodium Chloride (Zosyn/Iv Sodium Chloride 0.9 % 100ml) 100 ml @ 200 mls/hr 1X ONCE IV Last administered on 07/15/16 22:56; Start 07/15/16 at 22:00; Stop 07/15/16 at 22:29; Status DC Fentanyl Citrate 50 mcg 50 mcg PRN Q15MIN PRN IV PAIN GREATER THAN 3/10 Last administered on 07/16/16 00:30; Start 07/15/16 at 21:45; Stop 07/16/16 at 02:00; Status DC Sodium Chloride 1,000 ml @ 1,000 mls/hr 1X ONCE IV Last administered on 21:59; Start 07/15/16 at 22:00; Stop 07/15/16 at 22:59; Status DC Sodium Chloride (Iv Sodium Chloride 0.9% 500ml Bag) 500 ml @ 500 mls/hr 1X ONCE IV Last administered on 07/15/16 22:00; Start 07/15/16 at 22:00; Stop at 22:59; Status DC Ondansetron HCl (Zofran) 4 mg PRN Q8HRS PRN IV NAUSEA/VOMITING; Start 07/15/16 at 23:30; Stop 07/16/16 at 08:52; Status DC Fentanyl Citrate 50 mcg 50 mcg PRN Q2HR PRN IV SEVERE PAIN Last administered on 07/16/16 08:10; Start 07/15/16 at 23:30; Stop 07/16/16 at 08:52; Status DC Sodium Chloride (Iv Sodium Chloride 0.9% 1000ml Bag) 1,000 ml @ 150 mls/hr Q6H40M IV Last administered on 07/15/16 02:00; Start 07/15/16 at 23:45; Stop 07/16/16 at 08:52; Status DC Acetaminophen (Tylenol) 650 mg PRN Q4HRS PRN PO FEVER; Start 07/15/16 at 23:30; Stop 07/16/16 at 23:29; Status DC Info (Do NOT chart on this placeholder) 1 each PRN DAILY PRN MC NEEDS VERIFICATION; Start 07/16/16 at 03:00; Status Cancel Acetaminophen 650 mg 650 mg PRN Q4HRS PRN PO MILD PAIN / TEMP Last administered on 07/21/16 08:57; Start 07/16/16 at 08:45 Piperacillin Sod/ Tazobactam Sod 3.375 gm/Sodium Chloride 50 ml @ 100 mls/hr Q6HRS IV Last administered on 07/18/16 05:50; Start 07/16/16 at 10:00; Stop 07/18 at 13:28; Status DC Linezolid (Zyvox Premix) 300 ml @ 300 mls/hr Q12HR IV Last administered on 07/18 08:34; Start 07/16/16 at 10:00; Stop 07/18/16 at 13:28; Status DC Hydromorphone HCl (Dilaudid) 2 mg PRN Q4HRS PRN IV PAIN Last administered on 22:45; Start 07/16/16 at 08:45 Hydromorphone HCl (Dilaudid) 4 mg PRN Q4HRS PRN IV PAIN Last administered on 11:07; Start 07/16/16 at 08:45 Pantoprazole Sodium (Protonix) 40 mg DAILYAC PO Last administered on 07/25/16 08:58; Start 07/16/16 at 09:30 Hyoscyamine (Anaspaz) 0.125 mg Q6HRS PO Last administered on 07/20/16 05:20; Start 07/16/16 at 12:00; Stop 07/20/16 at 08:58; Status DC Phenazopyridine HCl (Pyridium) 200 mg TID PO Last administered on 07/20/16 08: 25; Start 07/16/16 at 09:30; Stop 07/20/16 at 08:58; Status DC Lorazepam (Ativan) 0.5 mg PRN BID PRN PO ANXIETY / AGITATION Last administered on 07/25/16 09:29; Start 07/16/16 at 08:45 Simethicone (Gas-X) 80 mg PRN Q4HRS PRN PO GAS / BLOATING Last administered on 07/24/16 22:30; Start 07/16/16 at 08:45 Zolpidem Tartrate 5 mg 5 mg PRN QHS PRN PO INSOMNIA Last administered on 22:30; Start 07/16/16 at 08:45 Potassium Chloride/Dextrose/ Sod Cl 1,000 ml @ 80 mls/hr [id number] IV Last administered on 07/16/16 10:54; Start 07/16/16 at 09:30; Stop 07/16/16 at 21:59; Status DC Fluconazole/ Sodium Chloride (Diflucan 200mg/ 100ml Premix) 100 ml @ 100 mls/ hr Q24H IV Last administered on 07/18/16 11:43; Start 07/16/16 at 11:00; Stop at 13:28; Status DC Info 1 each 1 each PRN DAILY PRN MC SEE COMMENTS Last administered on 12:08; Start 07/16/16 at 10:00 Sodium Chloride 220 meq/Sodium Acetate 90 meq/ Potassium Chloride 50 meq/ Potassium Acetate 15 meq/Potassium Phosphate 10 mmol/ Magnesium Sulfate 50 meq/ Calcium Gluconate 6 meq/ Multivitamins/ Minerals 10 ml/ Chromium/Copper/ Manganese/Seleni/ Zn 1 ml/Total Parenteral Nutrition/Amino Acids/Dextro... 1, 920 ml @ 80 mls/hr TPN CONT IV ; Start 07/16/16 at 22:00; Stop 07/16/16 at 22:00 ; Status DC Sodium Chloride/ Sodium Acetate/ Potassium Chloride/ Potassium Acetate/ Potassium Phosphate/ Magnesium Sulfate/ Calcium Gluconate/ Multivitamins/ Minerals/Chromium/ Copper/Manganese/ Seleni/Zn/Total Parenteral Nutrition/Amino Acids/Dextrose/ Fat Emulsion Intravenous (Sodium Chlori... 1,820 ml @ 75.833 mls/ hr TPN CONT IV Last administered on 07/16/16 21:03; Start 07/16/16 at 22: 00; Stop 07/17/16 at 21:59; Status DC Ondansetron HCl (Zofran) 4 mg PRN Q6HRS PRN IV NAUSEA/VOMITING Last administered on 07/21/16 08:48; Start 07/16/16 at 17:15 Diphenhydramine HCl (Benadryl) 25 mg PRN Q6HRS PRN PO ITCHING Last administered on 07/21/16 13:31; Start 07/16/16 at 17:45 Lidocaine (Xylocaine) 1 sang BID TP Last administered on 07/25/16 09:08; Start 07/17/16 at 09:00 Zinc Oxide 1 sang 1 sang BID TP Last administered on 07/25/16 09:08; Start at 09:30 Sodium Chloride/ Sodium Acetate/ Potassium Chloride/ Potassium Acetate/ Potassium Phosphate/ Magnesium Sulfate/ Calcium Gluconate/ Multivitamins/ Minerals/Chromium/ Copper/Manganese/ Seleni/Zn/Total Parenteral Nutrition/Amino Acids/Dextrose/ Fat Emulsion Intravenous (Sodium Chlori... 1,920 ml @ 80 mls/ hr TPN CONT IV Last administered on 07/17/16 22:13; Start 07/17/16 at 22:00; Stop 07/18/16 at 21:59; Status DC Furosemide 40 mg 40 mg 1X ONCE IVP Last administered on 07/18/16 11:43; Start 07/18/16 at 11:00; Stop 07/18/16 at 11:07; Status DC Sodium Chloride 220 meq/Sodium Acetate 90 meq/ Potassium Chloride 50 meq/ Potassium Acetate 15 meq/Potassium Phosphate 10 mmol/ Magnesium Sulfate 50 meq/ Calcium Gluconate 3 meq/ Multivitamins/ Minerals 10 ml/ Chromium/Copper/ Manganese/Seleni/ Zn 1 ml/Total Parenteral Nutrition/Amino Acids/Dextro... 1, 920 ml @ 80 mls/hr TPN CONT IV Last administered on 07/19/16 00:03; Start 07/18/16 at 22:00; Stop 07/19/16 at 21:59; Status DC Meropenem 1 gm/ Sodium Chloride 100 ml @ 200 mls/hr Q8HRS IV Last administered on 07/20/16 05:21; Start 07/18/16 at 14:00; Stop 07/20/16 at 11:25; Status DC Micafungin Sodium 100 mg/Dextrose 100 ml @ 100 mls/hr Q24H IV Last administered on 07/19/16 15:05; Start 07/18/16 at 14:00; Stop 07/20/16 at 11:25; Status DC Daptomycin/Sodium Chloride (Cubicin/Iv Sodium Chloride 0.9% 50ml) 50 ml @ 100 mls/hr Q24H IV Last administered on 07/19/16 16:56; Start 07/18/16 at 15:00; Stop 07/20/16 at 11:25; Status DC Alteplase, Recombinant (Cathflo) 2 mg 1X ONCE INT CAT Last administered on 07/19 06:24; Start 07/19/16 at 07:00; Stop 07/19/16 at 07:01; Status DC Gentamicin Sulfate 1 each 1 each PRN DAILY PRN MC SEE COMMENTS Last administered on 07/24/16 15:53; Start 07/19/16 at 12:15 Gentamicin Sulfate/Sodium Chloride (Iv Sodium Chloride 0.9% 100ml) 106.75 ml @ 106.75 mls/hr Q24H IV Last administered on 07/24/16 14:15; Start 07/19/16 at 13 :00 Gentamicin Sulfate 1 each 1 each 1X ONCE MC Last administered on 07/19/16 23: 00; Start 07/19/16 at 23:00; Stop 07/19/16 at 23:01; Status DC Sodium Chloride/ Sodium Acetate/ Potassium Chloride/ Potassium Acetate/ Potassium Phosphate/ Magnesium Sulfate/ Calcium Gluconate/ Multivitamins/ Minerals/Chromium/ Copper/Manganese/ Seleni/Zn/Total Parenteral Nutrition/Amino Acids/Dextrose/ Fat Emulsion Intravenous (Sodium Chlori... 1,920 ml @ 80 mls/ hr TPN CONT IV Last administered on 07/19/16 20:51; Start 07/19/16 at 22:00; Stop 07/20/16 at 21:59; Status DC Hyoscyamine (Anaspaz) 0.125 mg PRN Q6HRS PRN PO BLADDER SPASM; Start 07/20/16 at 09:00 Phenazopyridine HCl 200 mg 200 mg PRN TID PRN PO BLADDER SPASM Last administered on 07/21/16 20:14; Start 07/20/16 at 09:00 Linezolid 300 ml @ 300 mls/hr Q12HR IV Last administered on 07/25/16 09:02; Start 07/20/16 at 12:00 Sodium Chloride 220 meq/Sodium Acetate 90 meq/ Potassium Chloride 50 meq/ Potassium Acetate 15 meq/Potassium Phosphate 10 mmol/ Magnesium Sulfate 50 meq/ Calcium Gluconate 3 meq/ Multivitamins/ Minerals 10 ml/ Chromium/Copper/ Manganese/Seleni/ Zn 1 ml/Total Parenteral Nutrition/Amino Acids/Dextro... 1, 920 ml @ 80 mls/hr TPN CONT IV Last administered on 07/20/16 21:30; Start 07/20/16 at 22:00; Stop 07/21/16 at 21:59; Status DC Sodium Chloride/ Sodium Acetate/ Potassium Chloride/ Potassium Acetate/ Potassium Phosphate/ Magnesium Sulfate/ Multivitamins/ Minerals/Chromium/ Copper /Manganese/ Seleni/Zn/Total Parenteral Nutrition/Amino Acids/Dextrose/ Fat Emulsion Intravenous (Sodium Chloride/ Potass... 1,920 ml @ 80 mls/hr TPN CONT IV Last administered on 07/21/16 22:05; Start 07/21/16 at 22:00; Stop at 21:59; Status DC Alteplase, Recombinant 2 mg 2 mg PRN DAILY PRN INT CAT INFLAMMATION; Start 07/21 at 15:00 Sodium Chloride 220 meq/Sodium Acetate 90 meq/ Potassium Chloride 50 meq/ Potassium Acetate 15 meq/Potassium Phosphate 10 mmol/ Magnesium Sulfate 50 meq/ Multivitamins/ Minerals 10 ml/ Chromium/Copper/ Manganese/Seleni/ Zn 1 ml/Total Parenteral Nutrition/Amino Acids/Dextrose/ Fat Emuls... 1,920 ml @ 80 mls/hr TPN CONT IV Last administered on 07/22/16 20:53; Start 07/22/16 at 22:00; Stop 07/23/16 at 21:59; Status DC Sodium Chloride/ Sodium Acetate/ Potassium Chloride/ Potassium Acetate/ Potassium Phosphate/ Magnesium Sulfate/ Multivitamins/ Minerals/Chromium/ Copper /Manganese/ Seleni/Zn/Total Parenteral Nutrition/Amino Acids/Dextrose/ Fat Emulsion Intravenous (Sodium Chloride/ Potass... 1,920 ml @ 80 mls/hr TPN CONT IV Last administered on 07/23/16 21:16; Start 07/23/16 at 22:00; Stop 07/24 at 21:59; Status DC Gentamicin Sulfate 1 each 1 each 1X ONCE MC ; Start 07/23/16 at 22:00; Stop 07/23 at 22:01; Status Cancel Sodium Chloride/ Sodium Acetate/ Potassium Chloride/ Potassium Acetate/ Potassium Phosphate/ Magnesium Sulfate/ Multivitamins/ Minerals/Chromium/ Copper /Manganese/ Seleni/Zn/Total Parenteral Nutrition/Amino Acids/Dextrose/ Fat Emulsion Intravenous (Sodium Chloride/ Potass... 1,920 ml @ 80 mls/hr TPN CONT IV Last administered on 07/24/16 21:15; Start 07/24/16 at 22:00; Stop 04/30 at 21:59 Gentamicin Sulfate 1 each 1X ONCE MC ; Start 07/25/16 at 12:30; Stop 07/25/16 at 12:31 Active Scripts Active Dilaudid (Hydromorphone Hcl) 4 Mg Tablet 4 Mg PO Q6HRS Phenazopyridine Hcl 200 Mg Tablet 200 Mg PO PRN TID PRN FENTANYL 50mcg/hr (Fentanyl) 1 Each Patch.td72 1 Patch TD Q3DAYS Anaspaz (Hyoscyamine Sulfate) 0.125 Mg Tab.rapdis 0.125 Mg PO Q6HRS PRN Cefpodoxime Proxetil 200 Mg Tablet 200 Mg PO BID Sertraline Hcl 50 Mg Tablet 100 Mg PO DAILY 30 Days Protonix (Pantoprazole Sodium) 40 Mg Tablet.dr 1 Tab PO DAILY Zinc Oxide 56.7 Gm Oint...g. 1 Sang TP BID Lidocaine 35.44 Gm Oint...g. 1 Sang TP BID Ondansetron Odt (Ondansetron) 4 Mg Tab.rapdis 8 Mg PO PRN Q8HRS PRN Gas-X (Simethicone) 80 Mg Tab.chew 80 Mg PO PRN QID PRN Reported Lorazepam 0.5 Mg Tablet 0.5 Mg PO PRN BID PRN Vitals/I & O Vital Sign - Last 24 Hours 07/24/16 07/24/16 07/24/16 07/24/16 14:09 15:00 17:50 18:20 Temp 97.7 97.7 Pulse 92 Resp 20 B/P 161/78 Pulse Ox 92 99 99 99 O2 Delivery Room Air Room Air Room Air 07/24/16 07/24/16 07/24/16 07/24/16 19:30 20:00 22:30 22:45 Temp 97.7 97.7 Pulse 93 Resp 20 B/P 148/113 Pulse Ox 100 O2 Delivery Room Air Room Air Room Air Room Air 07/24/16 07/24/16 07/25/16 07/25/16 23:00 23:17 02:38 03:45 Temp 97.5 97.7 97.5 97.7 Pulse 104 94 Resp 20 20 B/P 151/103 153/81 Pulse Ox 100 100 O2 Delivery Room Air Room Air Room Air Room Air 07/25/16 07/25/16 07/25/16 07/25/16 06:47 07:17 07:38 10:01 Temp 97.9 97.9 Pulse 103 Resp 20 B/P 151/101 Pulse Ox 97 O2 Delivery Room Air Room Air Room Air Room Air 07/25/16 07/25/16 11:04 11:07 Temp 97.9 97.9 Pulse 113 Resp 20 B/P 157/109 Pulse Ox 100 100 O2 Delivery Room Air Room Air Intake and Output 07/24/16 07/24/16 07/25/16 15:00 23:00 07:00 Intake Total 200 ml Balance 200 ml BENITA LUTZ MD Jul 25, 2016 11:19
[2016-07-25] MEDS: TPN PER PHARMACY MC PRN (12:10)
[2016-07-25] MEDS ORDERED: GENTAMICIN TROUGH LEVEL. MC ONE (12:30)
[2016-07-25] MEDS: AMLODIPINE BESYLATE 5 MG TABLET PO SCH (14:07)
[2016-07-25 14:39] LABS: GENT TR 0.2 mcg/mL (0.0-2.0)
--- NOTE | 2016-07-25 15:16 | PDOC ---
Infectious Disease Note Subjective Subjective Doesn't quite feel ready to go home, weak TPN No tinnitus or vertigo No stools so far today ROS ROS GEN: Denies fevers, chills, sweats CV: Denies chest pain RESP: Denies shortness of air, cough GI: Denies n/v/d Vital Sign Vital Signs Vital Signs Date Time Temp Pulse Resp B/P Pulse Ox O2 Delivery O2 Flow Rate FiO2 07/25/16 14:07 113 157/109 07/25/16 12:19 100 Room Air 07/25/16 11:04 97.9 20 97.9 Physical Exam PHYSICAL EXAM GENERAL: Sitting on side of bed, NAD LUNGS: Clear HEART: S1S2, no gallop, no murmur ABD: Soft, NT, Fistula EXT: BLE edema [employer]ESS [employer]PER[employer]OR: Alert, oriented x 3, no focal neurologic deficit SKIN: No rash Chest PICc. clean Labs Lab Laboratory Tests Test 07/25/16 06:30 07/25/16 14:05 White Blood Count 5.9x10^3/uL (4.0-11.0) Red Blood Count 4.00x10^6/uL (3.50-5.40) Hemoglobin 10.1g/dL (12.0-15.5) Hematocrit 32.3% (36.0-47.0) Mean Corpuscular Volume 81fL (79-100) Mean Corpuscular Hemoglobin 25pg (25-35) Mean Corpuscular Hemoglobin Concent 31g/dL (31-37) Red Cell Distribution Width 19.3% (11.5-14.5) Platelet Count 411x10^3/uL (140-400) Neutrophils (%) (Auto) 68% (31-73) Lymphocytes (%) (Auto) 19% (24-48) Monocytes (%) (Auto) 4% (0-9) Eosinophils (%) (Auto) 7% (0-3) Basophils (%) (Auto) 1% (0-3) Neutrophils # (Auto) 4.0x10^3uL (1.8-7.7) Lymphocytes # (Auto) 1.1x10^3/uL (1.0-4.8) Monocytes # (Auto) 0.3x10^3/uL (0.0-1.1) Eosinophils # (Auto) 0.4x10^3/uL (0.0-0.7) Basophils # (Auto) 0.1x10^3/uL (0.0-0.2) Sodium Level 136mmol/L (136-145) Potassium Level 4.9mmol/L (3.5-5.1) Chloride Level 102mmol/L (98-107) Carbon Dioxide Level 26mmol/L (21-32) Anion Gap 8 (6-14) Blood Urea Nitrogen 14mg/dL (7-20) Creatinine 0.6mg/dL (0.6-1.0) Estimated GFR (Cockcroft-Gault) 123.0 Glucose Level 110mg/dL (70-99) Calcium Level 8.7mg/dL (8.5-10.1) Gentamicin Level Trough 0.2mcg/mL (0.0-2.0) Gentamicin Last Dose Date Gentamicin Last Dose Time Micro BLOOD CULTURE Preliminary NO GROWTH AFTER 3 DAYS Objective Assessment Fever and chills - improving Daily vomit without nausea - better Acute Anemia - s/p PRBCs Urine MDR Enterobacter and Amp res Enterococcus 07/15 EC fistula Enterovesicular fistula Abdominal excoriation Plan Plan of Care Cont Gent (07/19) and Zyvox wean soon - Avila out Monitor lab values in am C. diff negative Attending Co-Sign The patient was seen and interviewed as well as examined at the bedside. The chart was reviewed. The case was discussed. Agree with the plan of care. d/c antibiotics MAYELIN COLEMAN APRN Jul 25, 2016 15:16 JOSSY TATUM MD Jul 25, 2016 16:11
[2016-07-25] MEDS: GENTAMICIN SULFATE 270 MG in IV NORMAL SALINE 100ML 100 ML IV SCH (15:31)
[2016-07-25] MEDS: GENTAMICIN PER PHARMACY. MC PRN (15:31)
[2016-07-25 15:40] VITALS: BP 160/101
[2016-07-25 19:40] VITALS: BP 160/109
[2016-07-25] MEDS ORDERED: AMINO ACIDS IV SCH ×11 (22:00)
[2016-07-25] MEDS ORDERED: TOTAL PARENTERAL NUTRITION IV SCH ×11 (22:00)
[2016-07-25] MEDS ORDERED: [UNRECOGNIZED DRUG - OTHER] IV SCH ×11 (22:00)
[2016-07-25] MEDS ORDERED: DEXTROSE 70% IV SCH ×11 (22:00)
[2016-07-25] MEDS: ZOLPIDEM 5 MG TABLET. PO PRN (22:25)
[2016-07-25] MEDS: DIPHENHYDRAMINE HCL 25 MG CAPSULE PO PRN (23:38)
[2016-07-25 23:55] VITALS: BP 164/89
[2016-07-26] VITALS (7 sets, daily range): BP systolic 94–159; BP diastolic 55–99
[2016-07-26] MEDS: HYDROMORPHONE 2 MG/ML VIAL. IV PRN ×5 (03:02→23:25)
[2016-07-26] MEDS: ACETAMINOPHEN 325 MG TABLET. PO PRN ×2 (04:46→23:14)
[2016-07-26] MEDS: PANTOPRAZOLE 40 MG TABLET. PO SCH (08:39)
[2016-07-26] MEDS: AMLODIPINE BESYLATE 5 MG TABLET PO SCH (08:40)
[2016-07-26 09:19] LABS: BASO # 0.1 x10^3/uL (0.0-0.2); BASO % 2 % (0-3); EOS % 5 % (0-3); HEMATOCRIT 27.8 % (36.0-47.0); LYMPH # 0.8 x10^3/uL (1.0-4.8); LYMPH % 26 % (24-48); MEAN CORPUSCULAR HEMOGLOBIN 26 pg (25-35); MEAN CORPUSCULAR HGB CONC 32 g/dL (31-37); MEAN CORPUSCULAR VOLUME 80 fL (79-100); MONO % 5 % (0-9); NEUT % 63 % (31-73); PLATELET COUNT 327 x10^3/uL (140-400); RED BLOOD COUNT 3.48 x10^6/uL (3.50-5.40); RED CELL DISTRIBUTION WIDTH 19.4 % (11.5-14.5); WHITE BLOOD COUNT 3.1 x10^3/uL (4.0-11.0)
[2016-07-26] MEDS: LIDOCAINE 5% TOPICAL OINTMENT 35GM TUBE. TP SCH ×2 (09:31→23:16)
[2016-07-26] MEDS: ZINC OXIDE 20% TOPICAL OINTMENT 28GM TUBE. TP SCH ×2 (09:31→23:14)
[2016-07-26 09:32] LABS: CALCIUM 8.5 mg/dL (8.5-10.1); CREATININE 0.7 mg/dL (0.6-1.0); GFR 102.9; POTASSIUM 4.8 mmol/L (3.5-5.1)
--- NOTE | 2016-07-26 12:35 | PDOC ---
PROGRESS NOTES Subjective Subjective antibiotics discontinued yesterday and spiked a fever 100.6 last night. now afebrile. feels okay now. has tachycardia. lab reviewed. blood pressure fluctuating and discussed with nurse Objective Objective Vital Signs Date Time Temp Pulse Resp B/P Pulse Ox O2 Delivery O2 Flow Rate FiO2 07/26/16 11:34 97.5 107 20 159/93 96 Room Air 97.5 Intake and Output 07/26/16 07:00 Output Total 501 ml Balance -501 ml Output Urine Total 500 ml Stool Total 1 ml # Voids 2 Physical Exam Abdomen: Soft Heart: Regular rate, Normal S1, Normal S2 Extremities: Other (1 plus edema legs) General: Alert HEENT: Atraumatic Lungs: Clear to auscultation Neuro: Normal speech Psych/Mental Status: Mental status NL Skin: No rashes Assessment Assessment Problems Medical Problems:Urinary tract infection. enterococcus and MDR enterobacter 2. Bladder spasms. resolved 3. Fever 4. Enterocutaneous fistula. 5. Enterovesical fistula. 6. Anemia of chronic disease. 7. Moderately severe protein calorie malnutrition. bilateral LE edema resolved hypertension - bp high (1) Abdominal pain Status: Acute (2) Enterocutaneous fistula Status: Acute (3) Sepsis Status: Acute (4) Urinary tract infection Status: Acute (5) UTI (urinary tract infection) Status: Acute Plan Plan of Care monitor temperature and blood pressure. blood cultures if temp 100.5 or higher continue TPN lab tomorrow Comment Review of Relevant I have reviewed the following items lucila (where applicable) has been applied. Labs Laboratory Tests Test 07/25/16 06:30 07/25/16 14:05 07/26/16 08:35 White Blood Count 5.9x10^3/uL (4.0-11.0) 3.1x10^3/uL (4.0-11.0) Red Blood Count 4.00x10^6/uL (3.50-5.40) 3.48x10^6/uL (3.50-5.40) Hemoglobin 10.1g/dL (12.0-15.5) 9.0g/dL (12.0-15.5) Hematocrit 32.3% (36.0-47.0) 27.8% (36.0-47.0) Mean Corpuscular Volume 81fL (79-100) 80fL (79-100) Mean Corpuscular Hemoglobin 25pg (25-35) 26pg (25-35) Mean Corpuscular Hemoglobin Concent 31g/dL (31-37) 32g/dL (31-37) Red Cell Distribution Width 19.3% (11.5-14.5) 19.4% (11.5-14.5) Platelet Count 411x10^3/uL (140-400) 327x10^3/uL (140-400) Neutrophils (%) (Auto) 68% (31-73) 63% (31-73) Lymphocytes (%) (Auto) 19% (24-48) 26% (24-48) Monocytes (%) (Auto) 4% (0-9) 5% (0-9) Eosinophils (%) (Auto) 7% (0-3) 5% (0-3) Basophils (%) (Auto) 1% (0-3) 2% (0-3) Neutrophils # (Auto) 4.0x10^3uL (1.8-7.7) 1.9x10^3uL (1.8-7.7) Lymphocytes # (Auto) 1.1x10^3/uL (1.0-4.8) 0.8x10^3/uL (1.0-4.8) Monocytes # (Auto) 0.3x10^3/uL (0.0-1.1) 0.1x10^3/uL (0.0-1.1) Eosinophils # (Auto) 0.4x10^3/uL (0.0-0.7) 0.1x10^3/uL (0.0-0.7) Basophils # (Auto) 0.1x10^3/uL (0.0-0.2) 0.1x10^3/uL (0.0-0.2) Sodium Level 136mmol/L (136-145) 135mmol/L (136-145) Potassium Level 4.9mmol/L (3.5-5.1) 4.8mmol/L (3.5-5.1) Chloride Level 102mmol/L (98-107) 103mmol/L (98-107) Carbon Dioxide Level 26mmol/L (21-32) 25mmol/L (21-32) Anion Gap 8 (6-14) 7 (6-14) Blood Urea Nitrogen 14mg/dL (7-20) 19mg/dL (7-20) Creatinine 0.6mg/dL (0.6-1.0) 0.7mg/dL (0.6-1.0) Estimated GFR (Cockcroft-Gault) 123.0 102.9 Glucose Level 110mg/dL (70-99) 106mg/dL (70-99) Calcium Level 8.7mg/dL (8.5-10.1) 8.5mg/dL (8.5-10.1) Gentamicin Level Trough 0.2mcg/mL (0.0-2.0) Gentamicin Last Dose Date Gentamicin Last Dose Time Laboratory Tests Test 07/25/16 14:05 07/26/16 08:35 Gentamicin Level Trough 0.2mcg/mL (0.0-2.0) Gentamicin Last Dose Date Gentamicin Last Dose Time White Blood Count 3.1x10^3/uL (4.0-11.0) Red Blood Count 3.48x10^6/uL (3.50-5.40) Hemoglobin 9.0g/dL (12.0-15.5) Hematocrit 27.8% (36.0-47.0) Mean Corpuscular Volume 80fL (79-100) Mean Corpuscular Hemoglobin 26pg (25-35) Mean Corpuscular Hemoglobin Concent 32g/dL (31-37) Red Cell Distribution Width 19.4% (11.5-14.5) Platelet Count 327x10^3/uL (140-400) Neutrophils (%) (Auto) 63% (31-73) Lymphocytes (%) (Auto) 26% (24-48) Monocytes (%) (Auto) 5% (0-9) Eosinophils (%) (Auto) 5% (0-3) Basophils (%) (Auto) 2% (0-3) Neutrophils # (Auto) 1.9x10^3uL (1.8-7.7) Lymphocytes # (Auto) 0.8x10^3/uL (1.0-4.8) Monocytes # (Auto) 0.1x10^3/uL (0.0-1.1) Eosinophils # (Auto) 0.1x10^3/uL (0.0-0.7) Basophils # (Auto) 0.1x10^3/uL (0.0-0.2) Sodium Level 135mmol/L (136-145) Potassium Level 4.8mmol/L (3.5-5.1) Chloride Level 103mmol/L (98-107) Carbon Dioxide Level 25mmol/L (21-32) Anion Gap 7 (6-14) Blood Urea Nitrogen 19mg/dL (7-20) Creatinine 0.7mg/dL (0.6-1.0) Estimated GFR (Cockcroft-Gault) 102.9 Glucose Level 106mg/dL (70-99) Calcium Level 8.5mg/dL (8.5-10.1) Microbiology 07/19/16 Blood Culture - Final, Complete NO GROWTH AFTER 5 DAYS 07/15/16 Urine Culture - Final, Complete 07/15/16 Urine Culture Result 1 (ROYA) - Final, Complete 07/15/16 Urine Culture Result 2 (ROYA) - Final, Complete 07/15/16 Antimicrobic Susceptibility - Final, Complete Medications Current Medications Piperacillin Sod/ Tazobactam Sod/ Sodium Chloride (Zosyn/Iv Sodium Chloride 0.9 % 100ml) 100 ml @ 200 mls/hr 1X ONCE IV Last administered on 07/15/16 22:56; Start 07/15/16 at 22:00; Stop 07/15/16 at 22:29; Status DC Fentanyl Citrate 50 mcg 50 mcg PRN Q15MIN PRN IV PAIN GREATER THAN 3/10 Last administered on 07/16/16 00:30; Start 07/15/16 at 21:45; Stop 07/16/16 at 02:00; Status DC Sodium Chloride 1,000 ml @ 1,000 mls/hr 1X ONCE IV Last administered on 21:59; Start 07/15/16 at 22:00; Stop 07/15/16 at 22:59; Status DC Sodium Chloride (Iv Sodium Chloride 0.9% 500ml Bag) 500 ml @ 500 mls/hr 1X ONCE IV Last administered on 07/15/16 22:00; Start 07/15/16 at 22:00; Stop at 22:59; Status DC Ondansetron HCl (Zofran) 4 mg PRN Q8HRS PRN IV NAUSEA/VOMITING; Start 07/15/16 at 23:30; Stop 07/16/16 at 08:52; Status DC Fentanyl Citrate 50 mcg 50 mcg PRN Q2HR PRN IV SEVERE PAIN Last administered on 07/16/16 08:10; Start 07/15/16 at 23:30; Stop 07/16/16 at 08:52; Status DC Sodium Chloride (Iv Sodium Chloride 0.9% 1000ml Bag) 1,000 ml @ 150 mls/hr Q6H40M IV Last administered on 07/15/16 02:00; Start 07/15/16 at 23:45; Stop 07/16/16 at 08:52; Status DC Acetaminophen (Tylenol) 650 mg PRN Q4HRS PRN PO FEVER; Start 07/15/16 at 23:30; Stop 07/16/16 at 23:29; Status DC Info (Do NOT chart on this placeholder) 1 each PRN DAILY PRN MC NEEDS VERIFICATION; Start 07/16/16 at 03:00; Status Cancel Acetaminophen 650 mg 650 mg PRN Q4HRS PRN PO MILD PAIN / TEMP Last administered on 07/26/16 04:46; Start 07/16/16 at 08:45 Piperacillin Sod/ Tazobactam Sod 3.375 gm/Sodium Chloride 50 ml @ 100 mls/hr Q6HRS IV Last administered on 07/18/16 05:50; Start 07/16/16 at 10:00; Stop 07/18 at 13:28; Status DC Linezolid (Zyvox Premix) 300 ml @ 300 mls/hr Q12HR IV Last administered on 07/18 08:34; Start 07/16/16 at 10:00; Stop 07/18/16 at 13:28; Status DC Hydromorphone HCl (Dilaudid) 2 mg PRN Q4HRS PRN IV PAIN Last administered on 09:30; Start 07/16/16 at 08:45 Hydromorphone HCl (Dilaudid) 4 mg PRN Q4HRS PRN IV PAIN Last administered on 11:07; Start 07/16/16 at 08:45 Pantoprazole Sodium (Protonix) 40 mg DAILYAC PO Last administered on 07/26/16 08:39; Start 07/16/16 at 09:30 Hyoscyamine (Anaspaz) 0.125 mg Q6HRS PO Last administered on 07/20/16 05:20; Start 07/16/16 at 12:00; Stop 07/20/16 at 08:58; Status DC Phenazopyridine HCl (Pyridium) 200 mg TID PO Last administered on 07/20/16 08: 25; Start 07/16/16 at 09:30; Stop 07/20/16 at 08:58; Status DC Lorazepam (Ativan) 0.5 mg PRN BID PRN PO ANXIETY / AGITATION Last administered on 07/25/16 22:25; Start 07/16/16 at 08:45 Simethicone (Gas-X) 80 mg PRN Q4HRS PRN PO GAS / BLOATING Last administered on 07/24/16 22:30; Start 07/16/16 at 08:45 Zolpidem Tartrate 5 mg 5 mg PRN QHS PRN PO INSOMNIA Last administered on 22:25; Start 07/16/16 at 08:45 Potassium Chloride/Dextrose/ Sod Cl 1,000 ml @ 80 mls/hr [id number] IV Last administered on 07/16/16 10:54; Start 07/16/16 at 09:30; Stop 07/16/16 at 21:59; Status DC Fluconazole/ Sodium Chloride (Diflucan 200mg/ 100ml Premix) 100 ml @ 100 mls/ hr Q24H IV Last administered on 07/18/16 11:43; Start 07/16/16 at 11:00; Stop at 13:28; Status DC Info 1 each 1 each PRN DAILY PRN MC SEE COMMENTS Last administered on 12:10; Start 07/16/16 at 10:00 Sodium Chloride 220 meq/Sodium Acetate 90 meq/ Potassium Chloride 50 meq/ Potassium Acetate 15 meq/Potassium Phosphate 10 mmol/ Magnesium Sulfate 50 meq/ Calcium Gluconate 6 meq/ Multivitamins/ Minerals 10 ml/ Chromium/Copper/ Manganese/Seleni/ Zn 1 ml/Total Parenteral Nutrition/Amino Acids/Dextro... 1, 920 ml @ 80 mls/hr TPN CONT IV ; Start 07/16/16 at 22:00; Stop 07/16/16 at 22:00 ; Status DC Sodium Chloride/ Sodium Acetate/ Potassium Chloride/ Potassium Acetate/ Potassium Phosphate/ Magnesium Sulfate/ Calcium Gluconate/ Multivitamins/ Minerals/Chromium/ Copper/Manganese/ Seleni/Zn/Total Parenteral Nutrition/Amino Acids/Dextrose/ Fat Emulsion Intravenous (Sodium Chlori... 1,820 ml @ 75.833 mls/ hr TPN CONT IV Last administered on 07/16/16 21:03; Start 07/16/16 at 22: 00; Stop 07/17/16 at 21:59; Status DC Ondansetron HCl (Zofran) 4 mg PRN Q6HRS PRN IV NAUSEA/VOMITING Last administered on 07/21/16 08:48; Start 07/16/16 at 17:15 Diphenhydramine HCl (Benadryl) 25 mg PRN Q6HRS PRN PO ITCHING Last administered on 07/25/16 23:38; Start 07/16/16 at 17:45 Lidocaine (Xylocaine) 1 sang BID TP Last administered on 07/26/16 09:31; Start 07/17/16 at 09:00 Zinc Oxide 1 sang 1 sang BID TP Last administered on 07/26/16 09:31; Start at 09:30 Sodium Chloride/ Sodium Acetate/ Potassium Chloride/ Potassium Acetate/ Potassium Phosphate/ Magnesium Sulfate/ Calcium Gluconate/ Multivitamins/ Minerals/Chromium/ Copper/Manganese/ Seleni/Zn/Total Parenteral Nutrition/Amino Acids/Dextrose/ Fat Emulsion Intravenous (Sodium Chlori... 1,920 ml @ 80 mls/ hr TPN CONT IV Last administered on 07/17/16 22:13; Start 07/17/16 at 22:00; Stop 07/18/16 at 21:59; Status DC Furosemide 40 mg 40 mg 1X ONCE IVP Last administered on 07/18/16 11:43; Start 07/18/16 at 11:00; Stop 07/18/16 at 11:07; Status DC Sodium Chloride 220 meq/Sodium Acetate 90 meq/ Potassium Chloride 50 meq/ Potassium Acetate 15 meq/Potassium Phosphate 10 mmol/ Magnesium Sulfate 50 meq/ Calcium Gluconate 3 meq/ Multivitamins/ Minerals 10 ml/ Chromium/Copper/ Manganese/Seleni/ Zn 1 ml/Total Parenteral Nutrition/Amino Acids/Dextro... 1, 920 ml @ 80 mls/hr TPN CONT IV Last administered on 07/19/16 00:03; Start 07/18/16 at 22:00; Stop 07/19/16 at 21:59; Status DC Meropenem 1 gm/ Sodium Chloride 100 ml @ 200 mls/hr Q8HRS IV Last administered on 07/20/16 05:21; Start 07/18/16 at 14:00; Stop 07/20/16 at 11:25; Status DC Micafungin Sodium 100 mg/Dextrose 100 ml @ 100 mls/hr Q24H IV Last administered on 07/19/16 15:05; Start 07/18/16 at 14:00; Stop 07/20/16 at 11:25; Status DC Daptomycin/Sodium Chloride (Cubicin/Iv Sodium Chloride 0.9% 50ml) 50 ml @ 100 mls/hr Q24H IV Last administered on 07/19/16 16:56; Start 07/18/16 at 15:00; Stop 07/20/16 at 11:25; Status DC Alteplase, Recombinant (Cathflo) 2 mg 1X ONCE INT CAT Last administered on 07/19 06:24; Start 07/19/16 at 07:00; Stop 07/19/16 at 07:01; Status DC Gentamicin Sulfate 1 each 1 each PRN DAILY PRN MC SEE COMMENTS Last administered on 07/25/16 15:31; Start 07/19/16 at 12:15; Stop 07/25/16 at 16:14 ; Status DC Gentamicin Sulfate/Sodium Chloride (Iv Sodium Chloride 0.9% 100ml) 106.75 ml @ 106.75 mls/hr Q24H IV Last administered on 07/25/16 15:31; Start 07/19/16 at 13 :00; Stop 07/25/16 at 16:12; Status DC Gentamicin Sulfate 1 each 1 each 1X ONCE MC Last administered on 07/19/16 23: 00; Start 07/19/16 at 23:00; Stop 07/19/16 at 23:01; Status DC Sodium Chloride/ Sodium Acetate/ Potassium Chloride/ Potassium Acetate/ Potassium Phosphate/ Magnesium Sulfate/ Calcium Gluconate/ Multivitamins/ Minerals/Chromium/ Copper/Manganese/ Seleni/Zn/Total Parenteral Nutrition/Amino Acids/Dextrose/ Fat Emulsion Intravenous (Sodium Chlori... 1,920 ml @ 80 mls/ hr TPN CONT IV Last administered on 07/19/16 20:51; Start 07/19/16 at 22:00; Stop 07/20/16 at 21:59; Status DC Hyoscyamine (Anaspaz) 0.125 mg PRN Q6HRS PRN PO BLADDER SPASM; Start 07/20/16 at 09:00 Phenazopyridine HCl 200 mg 200 mg PRN TID PRN PO BLADDER SPASM Last administered on 07/21/16 20:14; Start 07/20/16 at 09:00 Linezolid 300 ml @ 300 mls/hr Q12HR IV Last administered on 07/25/16 09:02; Start 07/20/16 at 12:00; Stop 07/25/16 at 16:12; Status DC Sodium Chloride 220 meq/Sodium Acetate 90 meq/ Potassium Chloride 50 meq/ Potassium Acetate 15 meq/Potassium Phosphate 10 mmol/ Magnesium Sulfate 50 meq/ Calcium Gluconate 3 meq/ Multivitamins/ Minerals 10 ml/ Chromium/Copper/ Manganese/Seleni/ Zn 1 ml/Total Parenteral Nutrition/Amino Acids/Dextro... 1, 920 ml @ 80 mls/hr TPN CONT IV Last administered on 07/20/16 21:30; Start 07/20/16 at 22:00; Stop 07/21/16 at 21:59; Status DC Sodium Chloride/ Sodium Acetate/ Potassium Chloride/ Potassium Acetate/ Potassium Phosphate/ Magnesium Sulfate/ Multivitamins/ Minerals/Chromium/ Copper /Manganese/ Seleni/Zn/Total Parenteral Nutrition/Amino Acids/Dextrose/ Fat Emulsion Intravenous (Sodium Chloride/ Potass... 1,920 ml @ 80 mls/hr TPN CONT IV Last administered on 07/21/16 22:05; Start 07/21/16 at 22:00; Stop at 21:59; Status DC Alteplase, Recombinant 2 mg 2 mg PRN DAILY PRN INT CAT INFLAMMATION; Start 07/21 at 15:00 Sodium Chloride 220 meq/Sodium Acetate 90 meq/ Potassium Chloride 50 meq/ Potassium Acetate 15 meq/Potassium Phosphate 10 mmol/ Magnesium Sulfate 50 meq/ Multivitamins/ Minerals 10 ml/ Chromium/Copper/ Manganese/Seleni/ Zn 1 ml/Total Parenteral Nutrition/Amino Acids/Dextrose/ Fat Emuls... 1,920 ml @ 80 mls/hr TPN CONT IV Last administered on 07/22/16 20:53; Start 07/22/16 at 22:00; Stop 07/23/16 at 21:59; Status DC Sodium Chloride/ Sodium Acetate/ Potassium Chloride/ Potassium Acetate/ Potassium Phosphate/ Magnesium Sulfate/ Multivitamins/ Minerals/Chromium/ Copper /Manganese/ Seleni/Zn/Total Parenteral Nutrition/Amino Acids/Dextrose/ Fat Emulsion Intravenous (Sodium Chloride/ Potass... 1,920 ml @ 80 mls/hr TPN CONT IV Last administered on 07/23/16 21:16; Start 07/23/16 at 22:00; Stop 07/24 at 21:59; Status DC Gentamicin Sulfate 1 each 1 each 1X ONCE MC ; Start 07/23/16 at 22:00; Stop 07/23 at 22:01; Status Cancel Sodium Chloride/ Sodium Acetate/ Potassium Chloride/ Potassium Acetate/ Potassium Phosphate/ Magnesium Sulfate/ Multivitamins/ Minerals/Chromium/ Copper /Manganese/ Seleni/Zn/Total Parenteral Nutrition/Amino Acids/Dextrose/ Fat Emulsion Intravenous (Sodium Chloride/ Potass... 1,920 ml @ 80 mls/hr TPN CONT IV Last administered on 07/24/16 21:15; Start 07/24/16 at 22:00; Stop 04/30 at 21:59; Status DC Gentamicin Sulfate 1 each 1X ONCE MC ; Start 07/25/16 at 12:30; Stop 07/25/16 at 12:31; Status DC Amlodipine Besylate 5 mg 5 mg DAILY PO Last administered on 07/25/16 14:07; Start 07/25/16 at 12:00 Sodium Chloride/ Sodium Acetate/ Potassium Chloride/ Potassium Acetate/ Potassium Phosphate/ Magnesium Sulfate/ Multivitamins/ Minerals/Chromium/ Copper /Manganese/ Seleni/Zn/Total Parenteral Nutrition/Amino Acids/Dextrose/ Fat Emulsion Intravenous (Sodium Chloride/ Potass... 1,920 ml @ 80 mls/hr TPN CONT IV Last administered on 07/25/16t 22:25; Start 07/25/16 at 22:00; Stop 05/30 at 21:59 Active Scripts Active Dilaudid (Hydromorphone Hcl) 4 Mg Tablet 4 Mg PO Q6HRS Phenazopyridine Hcl 200 Mg Tablet 200 Mg PO PRN TID PRN FENTANYL 50mcg/hr (Fentanyl) 1 Each Patch.td72 1 Patch TD Q3DAYS Anaspaz (Hyoscyamine Sulfate) 0.125 Mg Tab.rapdis 0.125 Mg PO Q6HRS PRN Cefpodoxime Proxetil 200 Mg Tablet 200 Mg PO BID Sertraline Hcl 50 Mg Tablet 100 Mg PO DAILY 30 Days Protonix (Pantoprazole Sodium) 40 Mg Tablet.dr 1 Tab PO DAILY Zinc Oxide 56.7 Gm Oint...g. 1 Sang TP BID Lidocaine 35.44 Gm Oint...g. 1 Sang TP BID Ondansetron Odt (Ondansetron) 4 Mg Tab.rapdis 8 Mg PO PRN Q8HRS PRN Gas-X (Simethicone) 80 Mg Tab.chew 80 Mg PO PRN QID PRN Reported Lorazepam 0.5 Mg Tablet 0.5 Mg PO PRN BID PRN Vitals/I & O Vital Sign - Last 24 Hours 07/25/16 07/25/16 07/25/16 07/25/16 14:07 15:40 18:39 19:40 Temp 97.5 97.9 97.5 97.9 Pulse 113 101 112 Resp 19 20 B/P 157/109 160/101 160/109 Pulse Ox 98 98 98 O2 Delivery Room Air Room Air Room Air 07/25/16 07/25/16 07/25/16 07/26/16 20:00 22:26 23:55 03:02 Temp 100.6 100.6 Pulse 122 Resp 20 B/P 164/89 Pulse Ox 99 99 O2 Delivery Room Air Room Air Room Air Room Air 07/26/16 07/26/16 07/26/16 07/26/16 03:45 04:47 05:17 07:25 Temp 99.7 97.9 99.7 97.9 Pulse 117 109 Resp 20 21 B/P 124/65 94/55 Pulse Ox 98 97 O2 Delivery Room Air Room Air Room Air Room Air 07/26/16 07/26/16 07/26/16 07/26/16 08:00 08:40 08:43 08:43 Pulse 97 101 97 Resp 18 B/P 105/61 113/57 105/61 O2 Delivery Room Air Room Air Room Air 07/26/16 07/26/16 09:30 11:34 Temp 97.5 97.5 Pulse 107 Resp 20 B/P 159/93 Pulse Ox 97 96 O2 Delivery Room Air Room Air Intake and Output 07/25/16 07/25/16 07/26/16 15:00 23:00 07:00 Output Total 501 ml Balance -501 ml BENITA LUTZ MD Jul 26, 2016 12:35
[2016-07-26] MEDS: TPN PER PHARMACY MC PRN (13:42)
--- NOTE | 2016-07-26 13:57 | PDOC ---
Infectious Disease Note Subjective Subjective feeling ok ROS ROS GEN: Denies , chills, sweats HEENT: Denies blurred vision, sore throat CV: Denies chest pain RESP: Denies shortness of air, cough GI: Denies n/v/d NEURO: Denies confusion, dizziness MSK: Denies weakness, joint pain/swelling Vital Sign Vital Signs Vital Signs Date Time Temp Pulse Resp B/P Pulse Ox O2 Delivery O2 Flow Rate FiO2 07/26/16 13:21 96 Room Air 07/26/16 11:34 97.5 107 20 159/93 97.5 Physical Exam PHYSICAL EXAM GENERAL: NAD, Alert HEENT: PERRL, OC/OP NECK: Supple, no JVD, no LN LUNGS: Clear HEART: S1S2, no gallop, no murmur ABD: Soft, NT, no organomegaly, no rebound,, ec fistula EXT: No edema, no cyanosis SUPERVISOR OF INSTRUCTION: Alert, oriented x 3, no focal neurologic deficit SKIN: No rash IV: ok Labs Lab Laboratory Tests Test 07/25/16 14:05 07/26/16 08:35 Gentamicin Level Trough 0.2mcg/mL (0.0-2.0) Gentamicin Last Dose Date Gentamicin Last Dose Time White Blood Count 3.1x10^3/uL (4.0-11.0) Red Blood Count 3.48x10^6/uL (3.50-5.40) Hemoglobin 9.0g/dL (12.0-15.5) Hematocrit 27.8% (36.0-47.0) Mean Corpuscular Volume 80fL (79-100) Mean Corpuscular Hemoglobin 26pg (25-35) Mean Corpuscular Hemoglobin Concent 32g/dL (31-37) Red Cell Distribution Width 19.4% (11.5-14.5) Platelet Count 327x10^3/uL (140-400) Neutrophils (%) (Auto) 63% (31-73) Lymphocytes (%) (Auto) 26% (24-48) Monocytes (%) (Auto) 5% (0-9) Eosinophils (%) (Auto) 5% (0-3) Basophils (%) (Auto) 2% (0-3) Neutrophils # (Auto) 1.9x10^3uL (1.8-7.7) Lymphocytes # (Auto) 0.8x10^3/uL (1.0-4.8) Monocytes # (Auto) 0.1x10^3/uL (0.0-1.1) Eosinophils # (Auto) 0.1x10^3/uL (0.0-0.7) Basophils # (Auto) 0.1x10^3/uL (0.0-0.2) Sodium Level 135mmol/L (136-145) Potassium Level 4.8mmol/L (3.5-5.1) Chloride Level 103mmol/L (98-107) Carbon Dioxide Level 25mmol/L (21-32) Anion Gap 7 (6-14) Blood Urea Nitrogen 19mg/dL (7-20) Creatinine 0.7mg/dL (0.6-1.0) Estimated GFR (Cockcroft-Gault) 102.9 Glucose Level 106mg/dL (70-99) Calcium Level 8.5mg/dL (8.5-10.1) Objective Assessment Fever and chills - improving Daily vomit without nausea - better Acute Anemia - s/p PRBCs Urine MDR Enterobacter and Amp res Enterococcus 2/1 EC fistula Enterovesicular fistula Abdominal excoriation Plan Plan of Care off antibiotics check influenza supportive care d/w JOSSY Greene MD Jul 26, 2016 13:57
[2016-07-26 15:08] LABS: OBC FLU VALID
[2016-07-26] MEDS ORDERED: AMINO ACIDS IV SCH ×11 (22:00)
[2016-07-26] MEDS ORDERED: TOTAL PARENTERAL NUTRITION IV SCH ×11 (22:00)
[2016-07-26] MEDS ORDERED: DEXTROSE 70% IV SCH ×11 (22:00)
[2016-07-26] MEDS ORDERED: [UNRECOGNIZED DRUG - OTHER] IV SCH ×11 (22:00)
[2016-07-26] MEDS: ZOLPIDEM 5 MG TABLET. PO PRN (23:14)
[2016-07-27] VITALS (9 sets, daily range): BP systolic 116–200; BP diastolic 55–115
[2016-07-27] MEDS: HYDROMORPHONE 2 MG/ML VIAL. IV PRN ×3 (04:07→23:57)
[2016-07-27 04:52] LABS: BASO # 0.1 x10^3/uL (0.0-0.2); BASO % 1 % (0-3); EOS % 4 % (0-3); HEMATOCRIT 29.7 % (36.0-47.0); HEMOGLOBIN 9.6 g/dL (12.0-15.5); LYMPH # 0.9 x10^3/uL (1.0-4.8); LYMPH % 24 % (24-48); MEAN CORPUSCULAR HEMOGLOBIN 26 pg (25-35); MEAN CORPUSCULAR HGB CONC 32 g/dL (31-37); MEAN CORPUSCULAR VOLUME 81 fL (79-100); MONO % 6 % (0-9); NEUT % 64 % (31-73); PLATELET COUNT 342 x10^3/uL (140-400); RED BLOOD COUNT 3.67 x10^6/uL (3.50-5.40); RED CELL DISTRIBUTION WIDTH 19.4 % (11.5-14.5); WHITE BLOOD COUNT 3.9 x10^3/uL (4.0-11.0)
[2016-07-27 05:35] LABS: ALBUMIN 2.1 g/dL (3.4-5.0); ALBUMIN/GLOBULIN RATIO 0.4 (1.0-1.7); CALCIUM 8.8 mg/dL (8.5-10.1); CREATININE 0.7 mg/dL (0.6-1.0); GFR 102.9; MAGNESIUM 2.5 mg/dL (1.8-2.4); POTASSIUM 4.4 mmol/L (3.5-5.1); TOTAL BILIRUBIN 0.4 mg/dL (0.2-1.0); TOTAL PROTEIN 7.7 g/dL (6.4-8.2)
--- NOTE | 2016-07-27 08:51 | PDOC ---
PROGRESS NOTES Subjective Subjective low grade fever last night and afebrile this morning. lab reviewed. will order iv lasix today for bilateral LE edema. Objective Objective Vital Signs Date Time Temp Pulse Resp B/P Pulse Ox O2 Delivery O2 Flow Rate FiO2 07/27/16 07:00 97.4 89 19 136/78 100 Room Air 97.4 Intake and Output 07/27/16 07:00 Intake Total 330 ml Output Total 300 ml Balance 30 ml Intake Oral 330 ml Output Urine Total 300 ml # Voids 10 # Bowel Movements 5 Physical Exam Abdomen: Soft Heart: Regular rate, Normal S1, Normal S2 Extremities: Other (1 plus edema legs) General: Alert HEENT: Atraumatic Lungs: Clear to auscultation Neuro: Normal speech Psych/Mental Status: Mental status NL Skin: No rashes Assessment Assessment Problems Medical Problems::Urinary tract infection. enterococcus and MDR enterobacter treated 2. Bladder spasms. resolved 3. Fever . low grade 4. Enterocutaneous fistula. 5. Enterovesical fistula. 6. Anemia of chronic disease. 7. Moderately severe protein calorie malnutrition. bilateral LE edema resolved hypertension - bp better (1) Abdominal pain Status: Acute (2) Enterocutaneous fistula Status: Acute (3) Sepsis Status: Acute (4) Urinary tract infection Status: Acute (5) UTI (urinary tract infection) Status: Acute Plan Plan of Care dismiss tomorrow with home health and home TPN iv lasix today monitor temperature Comment Review of Relevant I have reviewed the following items lucila (where applicable) has been applied. Labs Laboratory Tests Test 07/25/16 14:05 07/26/16 08:35 07/26/16 14:13 07/27/16 04:00 Gentamicin Level Trough 0.2mcg/mL (0.0-2.0) Gentamicin Last Dose Date Gentamicin Last Dose Time White Blood Count 3.1x10^3/uL (4.0-11.0) 3.9x10^3/uL (4.0-11.0) Red Blood Count 3.48x10^6/uL (3.50-5.40) 3.67x10^6/uL (3.50-5.40) Hemoglobin 9.0g/dL (12.0-15.5) 9.6g/dL (12.0-15.5) Hematocrit 27.8% (36.0-47.0) 29.7% (36.0-47.0) Mean Corpuscular Volume 80fL (79-100) 81fL (79-100) Mean Corpuscular Hemoglobin 26pg (25-35) 26pg (25-35) Mean Corpuscular Hemoglobin Concent 32g/dL (31-37) 32g/dL (31-37) Red Cell Distribution Width 19.4% (11.5-14.5) 19.4% (11.5-14.5) Platelet Count 327x10^3/uL (140-400) 342x10^3/uL (140-400) Neutrophils (%) (Auto) 63% (31-73) 64% (31-73) Lymphocytes (%) (Auto) 26% (24-48) 24% (24-48) Monocytes (%) (Auto) 5% (0-9) 6% (0-9) Eosinophils (%) (Auto) 5% (0-3) 4% (0-3) Basophils (%) (Auto) 2% (0-3) 1% (0-3) Neutrophils # (Auto) 1.9x10^3uL (1.8-7.7) 2.5x10^3uL (1.8-7.7) Lymphocytes # (Auto) 0.8x10^3/uL (1.0-4.8) 0.9x10^3/uL (1.0-4.8) Monocytes # (Auto) 0.1x10^3/uL (0.0-1.1) 0.3x10^3/uL (0.0-1.1) Eosinophils # (Auto) 0.1x10^3/uL (0.0-0.7) 0.1x10^3/uL (0.0-0.7) Basophils # (Auto) 0.1x10^3/uL (0.0-0.2) 0.1x10^3/uL (0.0-0.2) Sodium Level 135mmol/L (136-145) 137mmol/L (136-145) Potassium Level 4.8mmol/L (3.5-5.1) 4.4mmol/L (3.5-5.1) Chloride Level 103mmol/L (98-107) 103mmol/L (98-107) Carbon Dioxide Level 25mmol/L (21-32) 25mmol/L (21-32) Anion Gap 7 (6-14) 9 (6-14) Blood Urea Nitrogen 19mg/dL (7-20) 18mg/dL (7-20) Creatinine 0.7mg/dL (0.6-1.0) 0.7mg/dL (0.6-1.0) Estimated GFR (Cockcroft-Gault) 102.9 102.9 Glucose Level 106mg/dL (70-99) 109mg/dL (70-99) Calcium Level 8.5mg/dL (8.5-10.1) 8.8mg/dL (8.5-10.1) Influenza Type A Antigen Negative (NEGATIVE) Influenza Type B Antigen Negative (NEGATIVE) BUN/Creatinine Ratio 26 (6-20) Magnesium Level 2.5mg/dL (1.8-2.4) Total Bilirubin 0.4mg/dL (0.2-1.0) Aspartate Amino Transf (AST/SGOT) 16U/L (15-37) Alanine Aminotransferase (ALT/SGPT) 15U/L (14-59) Alkaline Phosphatase 310U/L (46-116) Total Protein 7.7g/dL (6.4-8.2) Albumin 2.1g/dL (3.4-5.0) Albumin/Globulin Ratio 0.4 (1.0-1.7) Laboratory Tests Test 07/26/16 14:13 07/27/16 04:00 Influenza Type A Antigen Negative (NEGATIVE) Influenza Type B Antigen Negative (NEGATIVE) White Blood Count 3.9x10^3/uL (4.0-11.0) Red Blood Count 3.67x10^6/uL (3.50-5.40) Hemoglobin 9.6g/dL (12.0-15.5) Hematocrit 29.7% (36.0-47.0) Mean Corpuscular Volume 81fL (79-100) Mean Corpuscular Hemoglobin 26pg (25-35) Mean Corpuscular Hemoglobin Concent 32g/dL (31-37) Red Cell Distribution Width 19.4% (11.5-14.5) Platelet Count 342x10^3/uL (140-400) Neutrophils (%) (Auto) 64% (31-73) Lymphocytes (%) (Auto) 24% (24-48) Monocytes (%) (Auto) 6% (0-9) Eosinophils (%) (Auto) 4% (0-3) Basophils (%) (Auto) 1% (0-3) Neutrophils # (Auto) 2.5x10^3uL (1.8-7.7) Lymphocytes # (Auto) 0.9x10^3/uL (1.0-4.8) Monocytes # (Auto) 0.3x10^3/uL (0.0-1.1) Eosinophils # (Auto) 0.1x10^3/uL (0.0-0.7) Basophils # (Auto) 0.1x10^3/uL (0.0-0.2) Sodium Level 137mmol/L (136-145) Potassium Level 4.4mmol/L (3.5-5.1) Chloride Level 103mmol/L (98-107) Carbon Dioxide Level 25mmol/L (21-32) Anion Gap 9 (6-14) Blood Urea Nitrogen 18mg/dL (7-20) Creatinine 0.7mg/dL (0.6-1.0) Estimated GFR (Cockcroft-Gault) 102.9 BUN/Creatinine Ratio 26 (6-20) Glucose Level 109mg/dL (70-99) Calcium Level 8.8mg/dL (8.5-10.1) Magnesium Level 2.5mg/dL (1.8-2.4) Total Bilirubin 0.4mg/dL (0.2-1.0) Aspartate Amino Transf (AST/SGOT) 16U/L (15-37) Alanine Aminotransferase (ALT/SGPT) 15U/L (14-59) Alkaline Phosphatase 310U/L (46-116) Total Protein 7.7g/dL (6.4-8.2) Albumin 2.1g/dL (3.4-5.0) Albumin/Globulin Ratio 0.4 (1.0-1.7) Microbiology 07/19/16 Blood Culture - Final, Complete NO GROWTH AFTER 5 DAYS 07/15/16 Urine Culture - Final, Complete 07/15/16 Urine Culture Result 1 (ROYA) - Final, Complete 07/15/16 Urine Culture Result 2 (ROYA) - Final, Complete 07/15/16 Antimicrobic Susceptibility - Final, Complete Medications Current Medications Piperacillin Sod/ Tazobactam Sod/ Sodium Chloride (Zosyn/Iv Sodium Chloride 0.9 % 100ml) 100 ml @ 200 mls/hr 1X ONCE IV Last administered on 07/15/16 22:56; Start 07/15/16 at 22:00; Stop 07/15/16 at 22:29; Status DC Fentanyl Citrate 50 mcg 50 mcg PRN Q15MIN PRN IV PAIN GREATER THAN 3/10 Last administered on 07/16/16 00:30; Start 07/15/16 at 21:45; Stop 07/16/16 at 02:00; Status DC Sodium Chloride 1,000 ml @ 1,000 mls/hr 1X ONCE IV Last administered on 21:59; Start 07/15/16 at 22:00; Stop 07/15/16 at 22:59; Status DC Sodium Chloride (Iv Sodium Chloride 0.9% 500ml Bag) 500 ml @ 500 mls/hr 1X ONCE IV Last administered on 07/15/16 22:00; Start 07/15/16 at 22:00; Stop at 22:59; Status DC Ondansetron HCl (Zofran) 4 mg PRN Q8HRS PRN IV NAUSEA/VOMITING; Start 07/15/16 at 23:30; Stop 07/16/16 at 08:52; Status DC Fentanyl Citrate 50 mcg 50 mcg PRN Q2HR PRN IV SEVERE PAIN Last administered on 07/16/16 08:10; Start 07/15/16 at 23:30; Stop 07/16/16 at 08:52; Status DC Sodium Chloride (Iv Sodium Chloride 0.9% 1000ml Bag) 1,000 ml @ 150 mls/hr Q6H40M IV Last administered on 07/15/16 02:00; Start 07/15/16 at 23:45; Stop 07/16/16 at 08:52; Status DC Acetaminophen (Tylenol) 650 mg PRN Q4HRS PRN PO FEVER; Start 07/15/16 at 23:30; Stop 07/16/16 at 23:29; Status DC Info (Do NOT chart on this placeholder) 1 each PRN DAILY PRN MC NEEDS VERIFICATION; Start 07/16/16 at 03:00; Status Cancel Acetaminophen 650 mg 650 mg PRN Q4HRS PRN PO MILD PAIN / TEMP Last administered on 07/26/16 23:14; Start 07/16/16 at 08:45 Piperacillin Sod/ Tazobactam Sod 3.375 gm/Sodium Chloride 50 ml @ 100 mls/hr Q6HRS IV Last administered on 07/18/16 05:50; Start 07/16/16 at 10:00; Stop 07/18 at 13:28; Status DC Linezolid (Zyvox Premix) 300 ml @ 300 mls/hr Q12HR IV Last administered on 07/18 08:34; Start 07/16/16 at 10:00; Stop 07/18/16 at 13:28; Status DC Hydromorphone HCl (Dilaudid) 2 mg PRN Q4HRS PRN IV PAIN Last administered on 09:30; Start 07/16/16 at 08:45 Hydromorphone HCl (Dilaudid) 4 mg PRN Q4HRS PRN IV PAIN Last administered on 04:07; Start 07/16/16 at 08:45 Pantoprazole Sodium (Protonix) 40 mg DAILYAC PO Last administered on 07/26/16 08:39; Start 07/16/16 at 09:30 Hyoscyamine (Anaspaz) 0.125 mg Q6HRS PO Last administered on 07/20/16 05:20; Start 07/16/16 at 12:00; Stop 07/20/16 at 08:58; Status DC Phenazopyridine HCl (Pyridium) 200 mg TID PO Last administered on 07/20/16 08: 25; Start 07/16/16 at 09:30; Stop 07/20/16 at 08:58; Status DC Lorazepam (Ativan) 0.5 mg PRN BID PRN PO ANXIETY / AGITATION Last administered on 07/25/16 22:25; Start 07/16/16 at 08:45 Simethicone (Gas-X) 80 mg PRN Q4HRS PRN PO GAS / BLOATING Last administered on 07/24/16 22:30; Start 07/16/16 at 08:45 Zolpidem Tartrate 5 mg 5 mg PRN QHS PRN PO INSOMNIA Last administered on 23:14; Start 07/16/16 at 08:45 Potassium Chloride/Dextrose/ Sod Cl 1,000 ml @ 80 mls/hr [id number] IV Last administered on 07/16/16 10:54; Start 07/16/16 at 09:30; Stop 07/16/16 at 21:59; Status DC Fluconazole/ Sodium Chloride (Diflucan 200mg/ 100ml Premix) 100 ml @ 100 mls/ hr Q24H IV Last administered on 07/18/16 11:43; Start 07/16/16 at 11:00; Stop at 13:28; Status DC Info 1 each 1 each PRN DAILY PRN MC SEE COMMENTS Last administered on 13:42; Start 07/16/16 at 10:00 Sodium Chloride 220 meq/Sodium Acetate 90 meq/ Potassium Chloride 50 meq/ Potassium Acetate 15 meq/Potassium Phosphate 10 mmol/ Magnesium Sulfate 50 meq/ Calcium Gluconate 6 meq/ Multivitamins/ Minerals 10 ml/ Chromium/Copper/ Manganese/Seleni/ Zn 1 ml/Total Parenteral Nutrition/Amino Acids/Dextro... 1, 920 ml @ 80 mls/hr TPN CONT IV ; Start 07/16/16 at 22:00; Stop 07/16/16 at 22:00 ; Status DC Sodium Chloride/ Sodium Acetate/ Potassium Chloride/ Potassium Acetate/ Potassium Phosphate/ Magnesium Sulfate/ Calcium Gluconate/ Multivitamins/ Minerals/Chromium/ Copper/Manganese/ Seleni/Zn/Total Parenteral Nutrition/Amino Acids/Dextrose/ Fat Emulsion Intravenous (Sodium Chlori... 1,820 ml @ 75.833 mls/ hr TPN CONT IV Last administered on 07/16/16 21:03; Start 07/16/16 at 22: 00; Stop 07/17/16 at 21:59; Status DC Ondansetron HCl (Zofran) 4 mg PRN Q6HRS PRN IV NAUSEA/VOMITING Last administered on 07/21/16 08:48; Start 07/16/16 at 17:15 Diphenhydramine HCl (Benadryl) 25 mg PRN Q6HRS PRN PO ITCHING Last administered on 07/25/16 23:38; Start 07/16/16 at 17:45 Lidocaine (Xylocaine) 1 sang BID TP Last administered on 07/26/16 23:16; Start 07/17/16 at 09:00 Zinc Oxide 1 sang 1 sang BID TP Last administered on 07/26/16 23:14; Start at 09:30 Sodium Chloride/ Sodium Acetate/ Potassium Chloride/ Potassium Acetate/ Potassium Phosphate/ Magnesium Sulfate/ Calcium Gluconate/ Multivitamins/ Minerals/Chromium/ Copper/Manganese/ Seleni/Zn/Total Parenteral Nutrition/Amino Acids/Dextrose/ Fat Emulsion Intravenous (Sodium Chlori... 1,920 ml @ 80 mls/ hr TPN CONT IV Last administered on 07/17/16 22:13; Start 07/17/16 at 22:00; Stop 07/18/16 at 21:59; Status DC Furosemide 40 mg 40 mg 1X ONCE IVP Last administered on 07/18/16 11:43; Start 07/18/16 at 11:00; Stop 07/18/16 at 11:07; Status DC Sodium Chloride 220 meq/Sodium Acetate 90 meq/ Potassium Chloride 50 meq/ Potassium Acetate 15 meq/Potassium Phosphate 10 mmol/ Magnesium Sulfate 50 meq/ Calcium Gluconate 3 meq/ Multivitamins/ Minerals 10 ml/ Chromium/Copper/ Manganese/Seleni/ Zn 1 ml/Total Parenteral Nutrition/Amino Acids/Dextro... 1, 920 ml @ 80 mls/hr TPN CONT IV Last administered on 07/19/16 00:03; Start 07/18/16 at 22:00; Stop 07/19/16 at 21:59; Status DC Meropenem 1 gm/ Sodium Chloride 100 ml @ 200 mls/hr Q8HRS IV Last administered on 07/20/16 05:21; Start 07/18/16 at 14:00; Stop 07/20/16 at 11:25; Status DC Micafungin Sodium 100 mg/Dextrose 100 ml @ 100 mls/hr Q24H IV Last administered on 07/19/16 15:05; Start 07/18/16 at 14:00; Stop 07/20/16 at 11:25; Status DC Daptomycin/Sodium Chloride (Cubicin/Iv Sodium Chloride 0.9% 50ml) 50 ml @ 100 mls/hr Q24H IV Last administered on 07/19/16 16:56; Start 07/18/16 at 15:00; Stop 07/20/16 at 11:25; Status DC Alteplase, Recombinant (Cathflo) 2 mg 1X ONCE INT CAT Last administered on 07/19 06:24; Start 07/19/16 at 07:00; Stop 07/19/16 at 07:01; Status DC Gentamicin Sulfate 1 each 1 each PRN DAILY PRN MC SEE COMMENTS Last administered on 07/25/16 15:31; Start 07/19/16 at 12:15; Stop 07/25/16 at 16:14 ; Status DC Gentamicin Sulfate/Sodium Chloride (Iv Sodium Chloride 0.9% 100ml) 106.75 ml @ 106.75 mls/hr Q24H IV Last administered on 07/25/16 15:31; Start 07/19/16 at 13 :00; Stop 07/25/16 at 16:12; Status DC Gentamicin Sulfate 1 each 1 each 1X ONCE MC Last administered on 07/19/16 23: 00; Start 07/19/16 at 23:00; Stop 07/19/16 at 23:01; Status DC Sodium Chloride/ Sodium Acetate/ Potassium Chloride/ Potassium Acetate/ Potassium Phosphate/ Magnesium Sulfate/ Calcium Gluconate/ Multivitamins/ Minerals/Chromium/ Copper/Manganese/ Seleni/Zn/Total Parenteral Nutrition/Amino Acids/Dextrose/ Fat Emulsion Intravenous (Sodium Chlori... 1,920 ml @ 80 mls/ hr TPN CONT IV Last administered on 07/19/16 20:51; Start 07/19/16 at 22:00; Stop 07/20/16 at 21:59; Status DC Hyoscyamine (Anaspaz) 0.125 mg PRN Q6HRS PRN PO BLADDER SPASM; Start 07/20/16 at 09:00 Phenazopyridine HCl 200 mg 200 mg PRN TID PRN PO BLADDER SPASM Last administered on 07/21/16 20:14; Start 07/20/16 at 09:00 Linezolid 300 ml @ 300 mls/hr Q12HR IV Last administered on 07/25/16 09:02; Start 07/20/16 at 12:00; Stop 07/25/16 at 16:12; Status DC Sodium Chloride 220 meq/Sodium Acetate 90 meq/ Potassium Chloride 50 meq/ Potassium Acetate 15 meq/Potassium Phosphate 10 mmol/ Magnesium Sulfate 50 meq/ Calcium Gluconate 3 meq/ Multivitamins/ Minerals 10 ml/ Chromium/Copper/ Manganese/Seleni/ Zn 1 ml/Total Parenteral Nutrition/Amino Acids/Dextro... 1, 920 ml @ 80 mls/hr TPN CONT IV Last administered on 07/20/16 21:30; Start 07/20/16 at 22:00; Stop 07/21/16 at 21:59; Status DC Sodium Chloride/ Sodium Acetate/ Potassium Chloride/ Potassium Acetate/ Potassium Phosphate/ Magnesium Sulfate/ Multivitamins/ Minerals/Chromium/ Copper /Manganese/ Seleni/Zn/Total Parenteral Nutrition/Amino Acids/Dextrose/ Fat Emulsion Intravenous (Sodium Chloride/ Potass... 1,920 ml @ 80 mls/hr TPN CONT IV Last administered on 07/21/16 22:05; Start 07/21/16 at 22:00; Stop at 21:59; Status DC Alteplase, Recombinant 2 mg 2 mg PRN DAILY PRN INT CAT INFLAMMATION; Start 07/21 at 15:00 Sodium Chloride 220 meq/Sodium Acetate 90 meq/ Potassium Chloride 50 meq/ Potassium Acetate 15 meq/Potassium Phosphate 10 mmol/ Magnesium Sulfate 50 meq/ Multivitamins/ Minerals 10 ml/ Chromium/Copper/ Manganese/Seleni/ Zn 1 ml/Total Parenteral Nutrition/Amino Acids/Dextrose/ Fat Emuls... 1,920 ml @ 80 mls/hr TPN CONT IV Last administered on 07/22/16 20:53; Start 07/22/16 at 22:00; Stop 07/23/16 at 21:59; Status DC Sodium Chloride/ Sodium Acetate/ Potassium Chloride/ Potassium Acetate/ Potassium Phosphate/ Magnesium Sulfate/ Multivitamins/ Minerals/Chromium/ Copper /Manganese/ Seleni/Zn/Total Parenteral Nutrition/Amino Acids/Dextrose/ Fat Emulsion Intravenous (Sodium Chloride/ Potass... 1,920 ml @ 80 mls/hr TPN CONT IV Last administered on 07/23/16 21:16; Start 07/23/16 at 22:00; Stop 07/24 at 21:59; Status DC Gentamicin Sulfate 1 each 1 each 1X ONCE MC ; Start 07/23/16 at 22:00; Stop 07/23 at 22:01; Status Cancel Sodium Chloride/ Sodium Acetate/ Potassium Chloride/ Potassium Acetate/ Potassium Phosphate/ Magnesium Sulfate/ Multivitamins/ Minerals/Chromium/ Copper /Manganese/ Seleni/Zn/Total Parenteral Nutrition/Amino Acids/Dextrose/ Fat Emulsion Intravenous (Sodium Chloride/ Potass... 1,920 ml @ 80 mls/hr TPN CONT IV Last administered on 07/24/16 21:15; Start 07/24/16 at 22:00; Stop 04/30 at 21:59; Status DC Gentamicin Sulfate 1 each 1X ONCE MC ; Start 07/25/16 at 12:30; Stop 07/25/16 at 12:31; Status DC Amlodipine Besylate 5 mg 5 mg DAILY PO Last administered on 07/25/16 14:07; Start 07/25/16 at 12:00 Sodium Chloride 220 meq/Sodium Acetate 90 meq/ Potassium Chloride 30 meq/ Potassium Acetate 15 meq/Potassium Phosphate 10 mmol/ Magnesium Sulfate 50 meq/ Multivitamins/ Minerals 10 ml/ Chromium/Copper/ Manganese/Seleni/ Zn 1 ml/Total Parenteral Nutrition/Amino Acids/Dextrose/ Fat Emuls... 1,920 ml @ 80 mls/hr TPN CONT IV Last administered on 07/25/16 22:25; Start 07/25/16 at 22:00; Stop 07/26/16 at 21:59; Status DC Sodium Chloride/ Sodium Acetate/ Potassium Chloride/ Potassium Acetate/ Potassium Phosphate/ Magnesium Sulfate/ Multivitamins/ Minerals/Chromium/ Copper /Manganese/ Seleni/Zn/Total Parenteral Nutrition/Amino Acids/Dextrose/ Fat Emulsion Intravenous (Sodium Chloride/ Potass... 1,920 ml @ 80 mls/hr TPN CONT IV Last administered on 07/26/16 23:16; Start 07/26/16 at 22:00; Stop at 21:59 Active Scripts Active Dilaudid (Hydromorphone Hcl) 4 Mg Tablet 4 Mg PO Q6HRS Phenazopyridine Hcl 200 Mg Tablet 200 Mg PO PRN TID PRN FENTANYL 50mcg/hr (Fentanyl) 1 Each Patch.td72 1 Patch TD Q3DAYS Anaspaz (Hyoscyamine Sulfate) 0.125 Mg Tab.rapdis 0.125 Mg PO Q6HRS PRN Cefpodoxime Proxetil 200 Mg Tablet 200 Mg PO BID Sertraline Hcl 50 Mg Tablet 100 Mg PO DAILY 30 Days Protonix (Pantoprazole Sodium) 40 Mg Tablet.dr 1 Tab PO DAILY Zinc Oxide 56.7 Gm Oint...g. 1 Sang TP BID Lidocaine 35.44 Gm Oint...g. 1 Sang TP BID Ondansetron Odt (Ondansetron) 4 Mg Tab.rapdis 8 Mg PO PRN Q8HRS PRN Gas-X (Simethicone) 80 Mg Tab.chew 80 Mg PO PRN QID PRN Reported Lorazepam 0.5 Mg Tablet 0.5 Mg PO PRN BID PRN Vitals/I & O Vital Sign - Last 24 Hours 07/26/16 07/26/16 07/26/16 07/26/16 09:30 11:34 13:21 15:58 Temp 97.5 99.0 97.5 99.0 Pulse 107 112 Resp 20 18 B/P 159/93 147/82 Pulse Ox 97 96 96 100 O2 Delivery Room Air Room Air Room Air Room Air 07/26/16 07/26/16 07/26/16 07/26/16 19:01 19:35 20:00 20:23 Temp 99.7 99.7 Pulse 105 Resp 20 B/P 151/99 Pulse Ox 100 100 97 O2 Delivery Room Air Room Air Room Air Room Air 07/26/16 07/26/16 07/27/16 07/27/16 23:20 23:25 03:45 04:07 Temp 98.8 97.5 98.8 97.5 Pulse 103 80 Resp 20 18 20 16 B/P 155/91 143/78 Pulse Ox 97 100 O2 Delivery Room Air Room Air Room Air Room Air 07/27/16 07:00 Temp 97.4 97.4 Pulse 89 Resp 19 B/P 136/78 Pulse Ox 100 O2 Delivery Room Air Intake and Output 07/26/16 07/26/16 07/27/16 15:00 23:00 07:00 Intake Total 0 ml 330 ml Output Total 300 ml Balance 0 ml 30 ml BENITA LUTZ MD Jul 27, 2016 08:51
--- NOTE | 2016-07-27 08:59 | PDOC ---
Provider Note Provider Note discharge summary dictated # [id number] BENITA LUTZ MD Jul 27, 2016 08:59
[2016-07-27] MEDS ORDERED: FUROSEMIDE 20 MG/2 ML VIAL IVP ONE (09:00)
[2016-07-27] MEDS: PANTOPRAZOLE 40 MG TABLET. PO SCH (11:11)
[2016-07-27] MEDS: AMLODIPINE BESYLATE 5 MG TABLET PO SCH (11:12)
[2016-07-27] MEDS: LIDOCAINE 5% TOPICAL OINTMENT 35GM TUBE. TP SCH ×2 (11:19→22:37)
[2016-07-27] MEDS: ZINC OXIDE 20% TOPICAL OINTMENT 28GM TUBE. TP SCH ×2 (11:19→22:37)
--- NOTE | 2016-07-27 12:12 | PDOC ---
Infectious Disease Note Subjective Subjective feeling bad, fever and chills, confusion ROS ROS no n/v/d/ Vital Sign Vital Signs Vital Signs Date Time Temp Pulse Resp B/P Pulse Ox O2 Delivery O2 Flow Rate FiO2 07/27/16 11:22 98 Room Air 07/27/16 11:12 146 200/115 07/27/16 10:47 99.9 19 99.9 Physical Exam PHYSICAL EXAM GENERAL: NAD, Alert HEENT: PERRL, OC/OP NECK: Supple, no JVD, no LN LUNGS: Clear HEART: S1S2, no gallop, no murmur ABD: Soft, NT, no organomegaly, no rebound,, fistula drainage ++++ EXT: No edema, no cyanosis MOTOR MAN: Alert, but lethargic SKIN: No rash IV: ok Labs Lab Laboratory Tests Test 07/26/16 14:13 07/27/16 04:00 Influenza Type A Antigen Negative (NEGATIVE) Influenza Type B Antigen Negative (NEGATIVE) White Blood Count 3.9x10^3/uL (4.0-11.0) Red Blood Count 3.67x10^6/uL (3.50-5.40) Hemoglobin 9.6g/dL (12.0-15.5) Hematocrit 29.7% (36.0-47.0) Mean Corpuscular Volume 81fL (79-100) Mean Corpuscular Hemoglobin 26pg (25-35) Mean Corpuscular Hemoglobin Concent 32g/dL (31-37) Red Cell Distribution Width 19.4% (11.5-14.5) Platelet Count 342x10^3/uL (140-400) Neutrophils (%) (Auto) 64% (31-73) Lymphocytes (%) (Auto) 24% (24-48) Monocytes (%) (Auto) 6% (0-9) Eosinophils (%) (Auto) 4% (0-3) Basophils (%) (Auto) 1% (0-3) Neutrophils # (Auto) 2.5x10^3uL (1.8-7.7) Lymphocytes # (Auto) 0.9x10^3/uL (1.0-4.8) Monocytes # (Auto) 0.3x10^3/uL (0.0-1.1) Eosinophils # (Auto) 0.1x10^3/uL (0.0-0.7) Basophils # (Auto) 0.1x10^3/uL (0.0-0.2) Sodium Level 137mmol/L (136-145) Potassium Level 4.4mmol/L (3.5-5.1) Chloride Level 103mmol/L (98-107) Carbon Dioxide Level 25mmol/L (21-32) Anion Gap 9 (6-14) Blood Urea Nitrogen 18mg/dL (7-20) Creatinine 0.7mg/dL (0.6-1.0) Estimated GFR (Cockcroft-Gault) 102.9 BUN/Creatinine Ratio 26 (6-20) Glucose Level 109mg/dL (70-99) Calcium Level 8.8mg/dL (8.5-10.1) Magnesium Level 2.5mg/dL (1.8-2.4) Total Bilirubin 0.4mg/dL (0.2-1.0) Aspartate Amino Transf (AST/SGOT) 16U/L (15-37) Alanine Aminotransferase (ALT/SGPT) 15U/L (14-59) Alkaline Phosphatase 310U/L (46-116) Total Protein 7.7g/dL (6.4-8.2) Albumin 2.1g/dL (3.4-5.0) Albumin/Globulin Ratio 0.4 (1.0-1.7) Objective Assessment Fever and chills - Daily vomit without nausea - better Acute Anemia - s/p PRBCs Urine MDR Enterobacter and Amp res Enterococcus 2/1 EC fistula Enterovesicular fistula Abdominal excoriation Plan Plan of Care bc, start dapto and zosyn and diflucan check influenza supportive care d/w dr Blayne TATUM,JOSSY Aguilar MD Jul 27, 2016 12:12
[2016-07-27] MEDS ORDERED: IV NORMAL SALINE 1000ML BAG 1,000 ML IV ONE (12:30)
[2016-07-27] MEDS: PIPERACILLIN/TAZOBACTAM 3.375 GM in IV NORMAL SALINE 50ML 50 ML IV SCH ×3 (12:34→23:44)
[2016-07-27] MEDS: TPN PER PHARMACY MC PRN (13:15)
--- NOTE | 2016-07-27 14:18 | RAD ---
INDICATION: change in condition COMPARISON: 05/02/2016 TECHNIQUE: Axial CT images obtained through the head without intravenous contrast. FINDINGS: No intracranial hemorrhage. No midline shift. Basal cisterns patents. Ventricles and sulci are globally prominent. Soni white differentiation is maintained without evidence of acute ischemia to large vessel territory. No acute osseous abnormality. Orbits and paranasal sinuses unremarkable. Scattered foci of low attenuation within the white matter. Basal ganglia calcifications. IMPRESSION: 1. No acute intracranial hemorrhage. 2. Scattered regions of low attenuation within the white matter. Non-specific in nature but frequently secondary to chronic small vessel ischemic disease. 3. Prominence of ventricles and sulci which is frequently secondary to age related volume loss. PQRS Compliance Statement: One or more of the following individualized dose reduction techniques were utilized for this examination: 1. Automated exposure control 2. Adjustment of the mA and/or kV according to patient size 3. Use of iterative reconstruction technique
[2016-07-27] MEDS: FLUCONAZOLE 200MG/100ML PREMIX 100 ML IV SCH (15:22)
--- NOTE | 2016-07-27 17:10 | RAD ---
INDICATION: change in condition with altered mental status COMPARISON: 07/15/2016 FINDINGS: Single view of chest obtained. PICC line with tip near atriocaval junction. Hypoexpanded examination with mild prominence of interstitial markings again seen. No definite new region of focal airspace consolidation. IMPRESSION: No new region of airspace consolidation.
[2016-07-27] MEDS: IV NORMAL SALINE 1000ML BAG 1,000 ML IV SCH ×3 (18:15→21:51)
[2016-07-27] MEDS: DAPTOMYCIN IV SCH (18:15)
[2016-07-27] MEDS: NORMAL SALINE IV SCH (18:15)
[2016-07-27] MEDS: ACETAMINOPHEN 650 MG SUPP.RECT. PR PRN (20:08)
[2016-07-27] MEDS ORDERED: DEXTROSE 70% IV SCH ×11 (22:00)
[2016-07-27] MEDS ORDERED: [UNRECOGNIZED DRUG - OTHER] IV SCH ×11 (22:00)
[2016-07-27] MEDS ORDERED: TOTAL PARENTERAL NUTRITION IV SCH ×11 (22:00)
[2016-07-27] MEDS ORDERED: AMINO ACIDS IV SCH ×11 (22:00)
[2016-07-28] VITALS (22 sets, daily range): BP systolic 80–184; BP diastolic 44–93
[2016-07-28] MEDS: IV NORMAL SALINE 1000ML BAG 1,000 ML IV SCH (03:24)
--- NOTE | 2016-07-28 05:23 | DS ---
DATE OF DISCHARGE: DATE OF ANTICIPATED DISMISSAL: 07/28/2016. CONSULTANTS: Dr. Garcia Suggs and Dr. Muniz. FINAL DIAGNOSES: 1. Urinary tract infection with sepsis secondary to Enterococcus and multidrug resistant Enterobacter. 2. Bladder spasms. 3. Enterocutaneous fistula. 4. Enterovesical fistula. 5. Anemia of chronic disease. 6. Moderately severe protein-calorie malnutrition. 7. Bilateral lower extremity edema. 8. Hypertension. HOSPITAL COURSE: The patient is a 61-year-old -[place] female with an enterocutaneous fistula, enterovesical fistula, maintained on home TPN via PICC line who has anemia of chronic disease, admitted to [facility] through Emergency Room on 07/15/2016 with fever and sepsis. She had dysuria. Urine culture grew a multidrug resistant Enterobacter and also grew enterococcus. She was seen in consultation by Dr. Garcia Suggs and Dr. Muniz for Infectious Disease and received IV antibiotics with resolution of the urinary tract infection. She received Levsin p.r.n. as well as p.r.n. Pyridium for her dysuria and bladder spasms. A Avila catheter was placed and then removed. Blood pressure was high and she was started on amlodipine 5 mg every day. She did have some lower extremity edema prior to the amlodipine ____ 20 mg Lasix IV today. She had a fever of 100.6 the other night, it was 99.7 last night, so we will watch her temperature again today and if she is okay and does well, we will dismiss her tomorrow with home health. She was started on amlodipine for hypertension. It is anticipated she will be dismissed to home with home health on 07/28/2016. We dismissed on Tylenol 650 mg every 6 hours p.r.n., amlodipine 5 mg every day, Benadryl 25 mg p.o. every 6 hours p.r.n., Levsin 0.125 mg p.o. every 6 hours p.r.n. for bladder spasms, topical 5% lidocaine ointment applied b.i.d. followed by zinc oxide b.i.d. to her abdominal wall, lorazepam 0.5 mg b.i.d. p.r.n. for anxiety, Protonix 40 mg every day, simethicone every 4 hours p.r.n. TPN at 80 mL an hour and Ambien 5 mg at bedtime p.r.n. She will have a CBC, CMP, magnesium and phosphorus every Wednesday by home health and follow up by home health. BENITA LUTZ MD DR: [email or web address]/jd JOB#: [id number] / [id number]
[2016-07-28] MEDS: PIPERACILLIN/TAZOBACTAM 3.375 GM in IV NORMAL SALINE 50ML 50 ML IV SCH ×3 (06:23→18:39)
[2016-07-28 06:58] LABS: BASO % 1 % (0-3); EOS % 0 % (0-3); HEMATOCRIT 30.1 % (36.0-47.0); HEMOGLOBIN 9.6 g/dL (12.0-15.5); LYMPH # 0.3 x10^3/uL (1.0-4.8); LYMPH % 6 % (24-48); MEAN CORPUSCULAR HEMOGLOBIN 25 pg (25-35); MEAN CORPUSCULAR HGB CONC 32 g/dL (31-37); MEAN CORPUSCULAR VOLUME 79 fL (79-100); MONO % 3 % (0-9); NEUT % 91 % (31-73); PLATELET COUNT 270 x10^3/uL (140-400); RED CELL DISTRIBUTION WIDTH 19.7 % (11.5-14.5); WHITE BLOOD COUNT 4.6 x10^3/uL (4.0-11.0)
[2016-07-28 07:10] LABS: ALBUMIN/GLOBULIN RATIO 0.4 (1.0-1.7); CALCIUM 8.4 mg/dL (8.5-10.1); CREATININE 0.8 mg/dL (0.6-1.0); GFR 88.2; POTASSIUM 3.9 mmol/L (3.5-5.1); TOTAL BILIRUBIN 1.2 mg/dL (0.2-1.0); TOTAL PROTEIN 7.5 g/dL (6.4-8.2)
[2016-07-28] MEDS: PANTOPRAZOLE 40 MG TABLET. PO SCH (07:30)
[2016-07-28] MEDS: ACETAMINOPHEN 325 MG TABLET. PO PRN ×2 (07:42→15:30)
[2016-07-28] MEDS: LORAZEPAM 0.5 MG TABLET. PO PRN (07:42)
--- NOTE | 2016-07-28 08:04 | PDOC ---
Infectious Disease Note Subjective Subjective feeling bad, fever and chills, confusion ROS ROS no n/v/pain/sob Vital Sign Vital Signs Vital Signs Date Time Temp Pulse Resp B/P Pulse Ox O2 Delivery O2 Flow Rate FiO2 07/28/16 06:00 126 24 152/91 100 Room Air 07/28/16 04:00 99.1 99.1 Physical Exam PHYSICAL EXAM GENERAL: NAD, Alert HEENT: PERRL, OC/OP NECK: Supple, no JVD, no LN LUNGS: Clear HEART: S1S2, no gallop, no murmur ABD: Soft, NT, no organomegaly, no rebound,, fistula + EXT: No edema, no cyanosis [employer]: Alert, oriented x 3, no focal neurologic deficit SKIN: No rash IV: ok Labs Lab Laboratory Tests Test 07/27/16 14:15 07/28/16 06:25 Lactic Acid Level 1.3mmol/L (0.4-2.0) White Blood Count 4.6x10^3/uL (4.0-11.0) Red Blood Count 3.80x10^6/uL (3.50-5.40) Hemoglobin 9.6g/dL (12.0-15.5) Hematocrit 30.1% (36.0-47.0) Mean Corpuscular Volume 79fL (79-100) Mean Corpuscular Hemoglobin 25pg (25-35) Mean Corpuscular Hemoglobin Concent 32g/dL (31-37) Red Cell Distribution Width 19.7% (11.5-14.5) Platelet Count 270x10^3/uL (140-400) Neutrophils (%) (Auto) 91% (31-73) Lymphocytes (%) (Auto) 6% (24-48) Monocytes (%) (Auto) 3% (0-9) Eosinophils (%) (Auto) 0% (0-3) Basophils (%) (Auto) 1% (0-3) Neutrophils # (Auto) 4.2x10^3uL (1.8-7.7) Lymphocytes # (Auto) 0.3x10^3/uL (1.0-4.8) Monocytes # (Auto) 0.2x10^3/uL (0.0-1.1) Eosinophils # (Auto) 0.0x10^3/uL (0.0-0.7) Basophils # (Auto) 0.0x10^3/uL (0.0-0.2) Sodium Level 137mmol/L (136-145) Potassium Level 3.9mmol/L (3.5-5.1) Chloride Level 104mmol/L (98-107) Carbon Dioxide Level 20mmol/L (21-32) Anion Gap 13 (6-14) Blood Urea Nitrogen 13mg/dL (7-20) Creatinine 0.8mg/dL (0.6-1.0) Estimated GFR (Cockcroft-Gault) 88.2 BUN/Creatinine Ratio 16 (6-20) Glucose Level 116mg/dL (70-99) Calcium Level 8.4mg/dL (8.5-10.1) Total Bilirubin 1.2mg/dL (0.2-1.0) Aspartate Amino Transf (AST/SGOT) 26U/L (15-37) Alanine Aminotransferase (ALT/SGPT) 15U/L (14-59) Alkaline Phosphatase 304U/L (46-116) Total Protein 7.5g/dL (6.4-8.2) Albumin 2.0g/dL (3.4-5.0) Albumin/Globulin Ratio 0.4 (1.0-1.7) Micro BC neg Objective Assessment Fever and chills - Acute Anemia - s/p PRBCs Urine MDR Enterobacter and Amp res Enterococcus 2/1 EC fistula Enterovesicular fistula Abdominal excoriation Plan Plan of Care dapto and zosyn and diflucan supportive care d/w JOSSY Greene MD Jul 28, 2016 08:04
[2016-07-28 08:55] LABS: MAGNESIUM 2.1 mg/dL (1.8-2.4); PHOSPHORUS 3.5 mg/dL (2.6-4.7)
[2016-07-28] MEDS: AMLODIPINE BESYLATE 5 MG TABLET PO SCH ×2 (09:00→15:31)
[2016-07-28] MEDS: ZINC OXIDE 20% TOPICAL OINTMENT 28GM TUBE. TP SCH ×2 (09:15→21:42)
[2016-07-28] MEDS: LIDOCAINE 5% TOPICAL OINTMENT 35GM TUBE. TP SCH ×2 (09:15→21:42)
[2016-07-28 09:42] LABS: PLT ESTIMATE ADEQUATE (ADEQUATE)
--- NOTE | 2016-07-28 10:26 | PDOC ---
PROGRESS NOTES Subjective Subjective spiked a high fever yesterday with sinus tachycardia and confusion and sent to ICU. ct head negative. started in iv daptomycin and zosyn and fluconazole. she is alert and coherent today but weak. lab reviewed. cxr negative. blood cultures pending. Objective Objective Vital Signs Date Time Temp Pulse Resp B/P Pulse Ox O2 Delivery O2 Flow Rate FiO2 07/28/16 06:00 126 24 152/91 100 Room Air 07/28/16 04:00 99.1 99.1 Intake and Output 07/28/16 07:00 Intake Total 3703 ml Output Total 2460 ml Balance 1243 ml Intake Oral 240 ml IV Total 3463 ml Output Urine Total 2460 ml # Voids 5 # Bowel Movements 6 Physical Exam Abdomen: Soft Heart: Regular rate, Normal S1, Normal S2 Extremities: Other (1 plus edema legs) General: Alert HEENT: Atraumatic Lungs: Clear to auscultation Neuro: Normal speech Psych/Mental Status: Mental status NL Skin: No rashes Assessment Assessment Problems Medical Problems::Urinary tract infection. enterococcus and MDR enterobacter treated 2. Bladder spasms. resolved 3. Fever 07/27/16 4. Enterocutaneous fistula. 5. Enterovesical fistula. 6. Anemia of chronic disease. 7. Moderately severe protein calorie malnutrition. bilateral LE edema resolved hypertension - sepsis metabolic encephalopathy improved (1) Abdominal pain Status: Acute (2) Enterocutaneous fistula Status: Acute (3) Sepsis Status: Acute (4) Urinary tract infection Status: Acute (5) UTI (urinary tract infection) Status: Acute Plan Plan of Care continue iv daptomycin and zosyn and fluconazole continue TPN d/c iv fluids lab tomorrow blood culture report pending Comment Review of Relevant I have reviewed the following items lucila (where applicable) has been applied. Labs Laboratory Tests Test 07/26/16 14:13 07/27/16 04:00 07/27/16 14:15 07/28/16 06:25 Influenza Type A Antigen Negative (NEGATIVE) Influenza Type B Antigen Negative (NEGATIVE) White Blood Count 3.9x10^3/uL (4.0-11.0) 4.6x10^3/uL (4.0-11.0) Red Blood Count 3.67x10^6/uL (3.50-5.40) 3.80x10^6/uL (3.50-5.40) Hemoglobin 9.6g/dL (12.0-15.5) 9.6g/dL (12.0-15.5) Hematocrit 29.7% (36.0-47.0) 30.1% (36.0-47.0) Mean Corpuscular Volume 81fL (79-100) 79fL (79-100) Mean Corpuscular Hemoglobin 26pg (25-35) 25pg (25-35) Mean Corpuscular Hemoglobin Concent 32g/dL (31-37) 32g/dL (31-37) Red Cell Distribution Width 19.4% (11.5-14.5) 19.7% (11.5-14.5) Platelet Count 342x10^3/uL (140-400) 270x10^3/uL (140-400) Neutrophils (%) (Auto) 64% (31-73) 91% (31-73) Lymphocytes (%) (Auto) 24% (24-48) 6% (24-48) Monocytes (%) (Auto) 6% (0-9) 3% (0-9) Eosinophils (%) (Auto) 4% (0-3) 0% (0-3) Basophils (%) (Auto) 1% (0-3) 1% (0-3) Neutrophils # (Auto) 2.5x10^3uL (1.8-7.7) 4.2x10^3uL (1.8-7.7) Lymphocytes # (Auto) 0.9x10^3/uL (1.0-4.8) 0.3x10^3/uL (1.0-4.8) Monocytes # (Auto) 0.3x10^3/uL (0.0-1.1) 0.2x10^3/uL (0.0-1.1) Eosinophils # (Auto) 0.1x10^3/uL (0.0-0.7) 0.0x10^3/uL (0.0-0.7) Basophils # (Auto) 0.1x10^3/uL (0.0-0.2) 0.0x10^3/uL (0.0-0.2) Sodium Level 137mmol/L (136-145) 137mmol/L (136-145) Potassium Level 4.4mmol/L (3.5-5.1) 3.9mmol/L (3.5-5.1) Chloride Level 103mmol/L (98-107) 104mmol/L (98-107) Carbon Dioxide Level 25mmol/L (21-32) 20mmol/L (21-32) Anion Gap 9 (6-14) 13 (6-14) Blood Urea Nitrogen 18mg/dL (7-20) 13mg/dL (7-20) Creatinine 0.7mg/dL (0.6-1.0) 0.8mg/dL (0.6-1.0) Estimated GFR (Cockcroft-Gault) 102.9 88.2 BUN/Creatinine Ratio 26 (6-20) 16 (6-20) Glucose Level 109mg/dL (70-99) 116mg/dL (70-99) Calcium Level 8.8mg/dL (8.5-10.1) 8.4mg/dL (8.5-10.1) Magnesium Level 2.5mg/dL (1.8-2.4) 2.1mg/dL (1.8-2.4) Total Bilirubin 0.4mg/dL (0.2-1.0) 1.2mg/dL (0.2-1.0) Aspartate Amino Transf (AST/SGOT) 16U/L (15-37) 26U/L (15-37) Alanine Aminotransferase (ALT/SGPT) 15U/L (14-59) 15U/L (14-59) Alkaline Phosphatase 310U/L (46-116) 304U/L (46-116) Total Protein 7.7g/dL (6.4-8.2) 7.5g/dL (6.4-8.2) Albumin 2.1g/dL (3.4-5.0) 2.0g/dL (3.4-5.0) Albumin/Globulin Ratio 0.4 (1.0-1.7) 0.4 (1.0-1.7) Lactic Acid Level 1.3mmol/L (0.4-2.0) Segmented Neutrophils % 78% (35-66) Band Neutrophils % 11% (0-9) Lymphocytes % 11% (24-48) Platelet Estimate Adequate (ADEQUATE) Phosphorus Level 3.5mg/dL (2.6-4.7) Laboratory Tests Test 07/27/16 14:15 07/28/16 06:25 Lactic Acid Level 1.3mmol/L (0.4-2.0) White Blood Count 4.6x10^3/uL (4.0-11.0) Red Blood Count 3.80x10^6/uL (3.50-5.40) Hemoglobin 9.6g/dL (12.0-15.5) Hematocrit 30.1% (36.0-47.0) Mean Corpuscular Volume 79fL (79-100) Mean Corpuscular Hemoglobin 25pg (25-35) Mean Corpuscular Hemoglobin Concent 32g/dL (31-37) Red Cell Distribution Width 19.7% (11.5-14.5) Platelet Count 270x10^3/uL (140-400) Neutrophils (%) (Auto) 91% (31-73) Lymphocytes (%) (Auto) 6% (24-48) Monocytes (%) (Auto) 3% (0-9) Eosinophils (%) (Auto) 0% (0-3) Basophils (%) (Auto) 1% (0-3) Neutrophils # (Auto) 4.2x10^3uL (1.8-7.7) Lymphocytes # (Auto) 0.3x10^3/uL (1.0-4.8) Monocytes # (Auto) 0.2x10^3/uL (0.0-1.1) Eosinophils # (Auto) 0.0x10^3/uL (0.0-0.7) Basophils # (Auto) 0.0x10^3/uL (0.0-0.2) Segmented Neutrophils % 78% (35-66) Band Neutrophils % 11% (0-9) Lymphocytes % 11% (24-48) Platelet Estimate Adequate (ADEQUATE) Sodium Level 137mmol/L (136-145) Potassium Level 3.9mmol/L (3.5-5.1) Chloride Level 104mmol/L (98-107) Carbon Dioxide Level 20mmol/L (21-32) Anion Gap 13 (6-14) Blood Urea Nitrogen 13mg/dL (7-20) Creatinine 0.8mg/dL (0.6-1.0) Estimated GFR (Cockcroft-Gault) 88.2 BUN/Creatinine Ratio 16 (6-20) Glucose Level 116mg/dL (70-99) Calcium Level 8.4mg/dL (8.5-10.1) Phosphorus Level 3.5mg/dL (2.6-4.7) Magnesium Level 2.1mg/dL (1.8-2.4) Total Bilirubin 1.2mg/dL (0.2-1.0) Aspartate Amino Transf (AST/SGOT) 26U/L (15-37) Alanine Aminotransferase (ALT/SGPT) 15U/L (14-59) Alkaline Phosphatase 304U/L (46-116) Total Protein 7.5g/dL (6.4-8.2) Albumin 2.0g/dL (3.4-5.0) Albumin/Globulin Ratio 0.4 (1.0-1.7) Microbiology 07/19/16 Blood Culture - Final, Complete NO GROWTH AFTER 5 DAYS 07/15/16 Urine Culture - Final, Complete 07/15/16 Urine Culture Result 1 (ROYA) - Final, Complete 07/15/16 Urine Culture Result 2 (ROYA) - Final, Complete 07/15/16 Antimicrobic Susceptibility - Final, Complete Medications Current Medications Piperacillin Sod/ Tazobactam Sod/ Sodium Chloride (Zosyn/Iv Sodium Chloride 0.9 % 100ml) 100 ml @ 200 mls/hr 1X ONCE IV Last administered on 07/15/16 22:56; Start 07/15/16 at 22:00; Stop 07/15/16 at 22:29; Status DC Fentanyl Citrate 50 mcg 50 mcg PRN Q15MIN PRN IV PAIN GREATER THAN 3/10 Last administered on 07/16/16 00:30; Start 07/15/16 at 21:45; Stop 07/16/16 at 02:00; Status DC Sodium Chloride 1,000 ml @ 1,000 mls/hr 1X ONCE IV Last administered on 21:59; Start 07/15/16 at 22:00; Stop 07/15/16 at 22:59; Status DC Sodium Chloride (Iv Sodium Chloride 0.9% 500ml Bag) 500 ml @ 500 mls/hr 1X ONCE IV Last administered on 07/15/16 22:00; Start 07/15/16 at 22:00; Stop at 22:59; Status DC Ondansetron HCl (Zofran) 4 mg PRN Q8HRS PRN IV NAUSEA/VOMITING; Start 07/15/16 at 23:30; Stop 07/16/16 at 08:52; Status DC Fentanyl Citrate 50 mcg 50 mcg PRN Q2HR PRN IV SEVERE PAIN Last administered on 07/16/16 08:10; Start 07/15/16 at 23:30; Stop 07/16/16 at 08:52; Status DC Sodium Chloride (Iv Sodium Chloride 0.9% 1000ml Bag) 1,000 ml @ 150 mls/hr Q6H40M IV Last administered on 07/15/16 02:00; Start 07/15/16 at 23:45; Stop 07/16/16 at 08:52; Status DC Acetaminophen (Tylenol) 650 mg PRN Q4HRS PRN PO FEVER; Start 07/15/16 at 23:30; Stop 07/16/16 at 23:29; Status DC Info (Do NOT chart on this placeholder) 1 each PRN DAILY PRN MC NEEDS VERIFICATION; Start 07/16/16 at 03:00; Status Cancel Acetaminophen 650 mg 650 mg PRN Q4HRS PRN PO MILD PAIN / TEMP Last administered on 07/28/16 07:42; Start 07/16/16 at 08:45 Piperacillin Sod/ Tazobactam Sod 3.375 gm/Sodium Chloride 50 ml @ 100 mls/hr Q6HRS IV Last administered on 07/18/16 05:50; Start 07/16/16 at 10:00; Stop 07/18 at 13:28; Status DC Linezolid (Zyvox Premix) 300 ml @ 300 mls/hr Q12HR IV Last administered on 07/18 08:34; Start 07/16/16 at 10:00; Stop 07/18/16 at 13:28; Status DC Hydromorphone HCl (Dilaudid) 2 mg PRN Q4HRS PRN IV PAIN Last administered on 23:57; Start 07/16/16 at 08:45 Hydromorphone HCl (Dilaudid) 4 mg PRN Q4HRS PRN IV PAIN Last administered on 10:42; Start 07/16/16 at 08:45 Pantoprazole Sodium (Protonix) 40 mg DAILYAC PO Last administered on 07/27/16 11:11; Start 07/16/16 at 09:30 Hyoscyamine (Anaspaz) 0.125 mg Q6HRS PO Last administered on 07/20/16 05:20; Start 07/16/16 at 12:00; Stop 07/20/16 at 08:58; Status DC Phenazopyridine HCl (Pyridium) 200 mg TID PO Last administered on 07/20/16 08: 25; Start 07/16/16 at 09:30; Stop 07/20/16 at 08:58; Status DC Lorazepam (Ativan) 0.5 mg PRN BID PRN PO ANXIETY / AGITATION Last administered on 07/28/16 07:42; Start 07/16/16 at 08:45 Simethicone (Gas-X) 80 mg PRN Q4HRS PRN PO GAS / BLOATING Last administered on 07/24/16 22:30; Start 07/16/16 at 08:45 Zolpidem Tartrate 5 mg 5 mg PRN QHS PRN PO INSOMNIA Last administered on 23:14; Start 07/16/16 at 08:45 Potassium Chloride/Dextrose/ Sod Cl 1,000 ml @ 80 mls/hr [id number] IV Last administered on 07/16/16 10:54; Start 07/16/16 at 09:30; Stop 07/16/16 at 21:59; Status DC Fluconazole/ Sodium Chloride (Diflucan 200mg/ 100ml Premix) 100 ml @ 100 mls/ hr Q24H IV Last administered on 07/18/16 11:43; Start 07/16/16 at 11:00; Stop at 13:28; Status DC Info 1 each 1 each PRN DAILY PRN MC SEE COMMENTS Last administered on 13:15; Start 07/16/16 at 10:00 Sodium Chloride 220 meq/Sodium Acetate 90 meq/ Potassium Chloride 50 meq/ Potassium Acetate 15 meq/Potassium Phosphate 10 mmol/ Magnesium Sulfate 50 meq/ Calcium Gluconate 6 meq/ Multivitamins/ Minerals 10 ml/ Chromium/Copper/ Manganese/Seleni/ Zn 1 ml/Total Parenteral Nutrition/Amino Acids/Dextro... 1, 920 ml @ 80 mls/hr TPN CONT IV ; Start 07/16/16 at 22:00; Stop 07/16/16 at 22:00 ; Status DC Sodium Chloride/ Sodium Acetate/ Potassium Chloride/ Potassium Acetate/ Potassium Phosphate/ Magnesium Sulfate/ Calcium Gluconate/ Multivitamins/ Minerals/Chromium/ Copper/Manganese/ Seleni/Zn/Total Parenteral Nutrition/Amino Acids/Dextrose/ Fat Emulsion Intravenous (Sodium Chlori... 1,820 ml @ 75.833 mls/ hr TPN CONT IV Last administered on 07/16/16 21:03; Start 07/16/16 at 22: 00; Stop 07/17/16 at 21:59; Status DC Ondansetron HCl (Zofran) 4 mg PRN Q6HRS PRN IV NAUSEA/VOMITING Last administered on 07/21/16 08:48; Start 07/16/16 at 17:15 Diphenhydramine HCl (Benadryl) 25 mg PRN Q6HRS PRN PO ITCHING Last administered on 07/25/16 23:38; Start 07/16/16 at 17:45 Lidocaine (Xylocaine) 1 sang BID TP Last administered on 07/28/16 09:15; Start 07/17/16 at 09:00 Zinc Oxide 1 sang 1 sang BID TP Last administered on 07/28/16 09:15; Start at 09:30 Sodium Chloride/ Sodium Acetate/ Potassium Chloride/ Potassium Acetate/ Potassium Phosphate/ Magnesium Sulfate/ Calcium Gluconate/ Multivitamins/ Minerals/Chromium/ Copper/Manganese/ Seleni/Zn/Total Parenteral Nutrition/Amino Acids/Dextrose/ Fat Emulsion Intravenous (Sodium Chlori... 1,920 ml @ 80 mls/ hr TPN CONT IV Last administered on 07/17/16 22:13; Start 07/17/16 at 22:00; Stop 07/18/16 at 21:59; Status DC Furosemide 40 mg 40 mg 1X ONCE IVP Last administered on 07/18/16 11:43; Start 07/18/16 at 11:00; Stop 07/18/16 at 11:07; Status DC Sodium Chloride 220 meq/Sodium Acetate 90 meq/ Potassium Chloride 50 meq/ Potassium Acetate 15 meq/Potassium Phosphate 10 mmol/ Magnesium Sulfate 50 meq/ Calcium Gluconate 3 meq/ Multivitamins/ Minerals 10 ml/ Chromium/Copper/ Manganese/Seleni/ Zn 1 ml/Total Parenteral Nutrition/Amino Acids/Dextro... 1, 920 ml @ 80 mls/hr TPN CONT IV Last administered on 07/19/16 00:03; Start 07/18/16 at 22:00; Stop 07/19/16 at 21:59; Status DC Meropenem 1 gm/ Sodium Chloride 100 ml @ 200 mls/hr Q8HRS IV Last administered on 07/20/16 05:21; Start 07/18/16 at 14:00; Stop 07/20/16 at 11:25; Status DC Micafungin Sodium 100 mg/Dextrose 100 ml @ 100 mls/hr Q24H IV Last administered on 07/19/16 15:05; Start 07/18/16 at 14:00; Stop 07/20/16 at 11:25; Status DC Daptomycin/Sodium Chloride (Cubicin/Iv Sodium Chloride 0.9% 50ml) 50 ml @ 100 mls/hr Q24H IV Last administered on 07/19/16 16:56; Start 07/18/16 at 15:00; Stop 07/20/16 at 11:25; Status DC Alteplase, Recombinant (Cathflo) 2 mg 1X ONCE INT CAT Last administered on 07/19 06:24; Start 07/19/16 at 07:00; Stop 07/19/16 at 07:01; Status DC Gentamicin Sulfate 1 each 1 each PRN DAILY PRN MC SEE COMMENTS Last administered on 07/25/16 15:31; Start 07/19/16 at 12:15; Stop 07/25/16 at 16:14 ; Status DC Gentamicin Sulfate/Sodium Chloride (Iv Sodium Chloride 0.9% 100ml) 106.75 ml @ 106.75 mls/hr Q24H IV Last administered on 07/25/16 15:31; Start 07/19/16 at 13 :00; Stop 07/25/16 at 16:12; Status DC Gentamicin Sulfate 1 each 1 each 1X ONCE MC Last administered on 07/19/16 23: 00; Start 07/19/16 at 23:00; Stop 07/19/16 at 23:01; Status DC Sodium Chloride/ Sodium Acetate/ Potassium Chloride/ Potassium Acetate/ Potassium Phosphate/ Magnesium Sulfate/ Calcium Gluconate/ Multivitamins/ Minerals/Chromium/ Copper/Manganese/ Seleni/Zn/Total Parenteral Nutrition/Amino Acids/Dextrose/ Fat Emulsion Intravenous (Sodium Chlori... 1,920 ml @ 80 mls/ hr TPN CONT IV Last administered on 07/19/16 20:51; Start 07/19/16 at 22:00; Stop 07/20/16 at 21:59; Status DC Hyoscyamine (Anaspaz) 0.125 mg PRN Q6HRS PRN PO BLADDER SPASM; Start 07/20/16 at 09:00 Phenazopyridine HCl 200 mg 200 mg PRN TID PRN PO BLADDER SPASM Last administered on 07/21/16 20:14; Start 07/20/16 at 09:00 Linezolid 300 ml @ 300 mls/hr Q12HR IV Last administered on 07/25/16 09:02; Start 07/20/16 at 12:00; Stop 07/25/16 at 16:12; Status DC Sodium Chloride 220 meq/Sodium Acetate 90 meq/ Potassium Chloride 50 meq/ Potassium Acetate 15 meq/Potassium Phosphate 10 mmol/ Magnesium Sulfate 50 meq/ Calcium Gluconate 3 meq/ Multivitamins/ Minerals 10 ml/ Chromium/Copper/ Manganese/Seleni/ Zn 1 ml/Total Parenteral Nutrition/Amino Acids/Dextro... 1, 920 ml @ 80 mls/hr TPN CONT IV Last administered on 07/20/16 21:30; Start 07/20/16 at 22:00; Stop 07/21/16 at 21:59; Status DC Sodium Chloride/ Sodium Acetate/ Potassium Chloride/ Potassium Acetate/ Potassium Phosphate/ Magnesium Sulfate/ Multivitamins/ Minerals/Chromium/ Copper /Manganese/ Seleni/Zn/Total Parenteral Nutrition/Amino Acids/Dextrose/ Fat Emulsion Intravenous (Sodium Chloride/ Potass... 1,920 ml @ 80 mls/hr TPN CONT IV Last administered on 07/21/16 22:05; Start 07/21/16 at 22:00; Stop at 21:59; Status DC Alteplase, Recombinant 2 mg 2 mg PRN DAILY PRN INT CAT INFLAMMATION Last administered on 07/27/16 11:31; Start 07/21/16 at 15:00 Sodium Chloride 220 meq/Sodium Acetate 90 meq/ Potassium Chloride 50 meq/ Potassium Acetate 15 meq/Potassium Phosphate 10 mmol/ Magnesium Sulfate 50 meq/ Multivitamins/ Minerals 10 ml/ Chromium/Copper/ Manganese/Seleni/ Zn 1 ml/Total Parenteral Nutrition/Amino Acids/Dextrose/ Fat Emuls... 1,920 ml @ 80 mls/hr TPN CONT IV Last administered on 07/22/16 20:53; Start 07/22/16 at 22:00; Stop 07/23/16 at 21:59; Status DC Sodium Chloride/ Sodium Acetate/ Potassium Chloride/ Potassium Acetate/ Potassium Phosphate/ Magnesium Sulfate/ Multivitamins/ Minerals/Chromium/ Copper /Manganese/ Seleni/Zn/Total Parenteral Nutrition/Amino Acids/Dextrose/ Fat Emulsion Intravenous (Sodium Chloride/ Potass... 1,920 ml @ 80 mls/hr TPN CONT IV Last administered on 07/23/16 21:16; Start 07/23/16 at 22:00; Stop 07/24 at 21:59; Status DC Gentamicin Sulfate 1 each 1 each 1X ONCE MC ; Start 07/23/16 at 22:00; Stop 07/23 at 22:01; Status Cancel Sodium Chloride/ Sodium Acetate/ Potassium Chloride/ Potassium Acetate/ Potassium Phosphate/ Magnesium Sulfate/ Multivitamins/ Minerals/Chromium/ Copper /Manganese/ Seleni/Zn/Total Parenteral Nutrition/Amino Acids/Dextrose/ Fat Emulsion Intravenous (Sodium Chloride/ Potass... 1,920 ml @ 80 mls/hr TPN CONT IV Last administered on 07/24/16 21:15; Start 07/24/16 at 22:00; Stop 04/30 at 21:59; Status DC Gentamicin Sulfate 1 each 1X ONCE MC ; Start 07/25/16 at 12:30; Stop 07/25/16 at 12:31; Status DC Amlodipine Besylate 5 mg 5 mg DAILY PO Last administered on 07/27/16 11:12; Start 07/25/16 at 12:00 Sodium Chloride 220 meq/Sodium Acetate 90 meq/ Potassium Chloride 30 meq/ Potassium Acetate 15 meq/Potassium Phosphate 10 mmol/ Magnesium Sulfate 50 meq/ Multivitamins/ Minerals 10 ml/ Chromium/Copper/ Manganese/Seleni/ Zn 1 ml/Total Parenteral Nutrition/Amino Acids/Dextrose/ Fat Emuls... 1,920 ml @ 80 mls/hr TPN CONT IV Last administered on 07/25/16 22:25; Start 07/25/16 at 22:00; Stop 07/26/16 at 21:59; Status DC Sodium Chloride/ Sodium Acetate/ Potassium Chloride/ Potassium Acetate/ Potassium Phosphate/ Magnesium Sulfate/ Multivitamins/ Minerals/Chromium/ Copper /Manganese/ Seleni/Zn/Total Parenteral Nutrition/Amino Acids/Dextrose/ Fat Emulsion Intravenous (Sodium Chloride/ Potass... 1,920 ml @ 80 mls/hr TPN CONT IV Last administered on 07/26/16 23:16; Start 07/26/16 at 22:00; Stop at 21:59; Status DC Furosemide 20 mg 20 mg 1X ONCE IVP Last administered on 07/27/16 11:31; Start 07/27/16 at 09:00; Stop 07/27/16 at 09:01; Status DC Daptomycin 340 mg/ Sodium Chloride 50 ml @ 100 mls/hr Q24H IV Last administered on 07/27/16 18:15; Start 07/27/16 at 13:00 Piperacillin Sod/ Tazobactam Sod 3.375 gm/Sodium Chloride 50 ml @ 100 mls/hr Q6HRS IV Last administered on 07/28/16 06:23; Start 07/27/16 at 12:30 Fluconazole/ Sodium Chloride 100 ml @ 100 mls/hr Q24H IV Last administered on 07/27/16 15:22; Start 07/27/16 at 13:00 Sodium Chloride 1,000 ml @ 1,000 mls/hr 1X ONCE IV Last administered on 12:34; Start 07/27/16 at 12:30; Stop 07/27/16 at 13:29; Status DC Sodium Chloride 220 meq/Sodium Acetate 90 meq/ Potassium Chloride 30 meq/ Potassium Acetate 15 meq/Potassium Phosphate 10 mmol/ Magnesium Sulfate 45 meq/ Multivitamins/ Minerals 10 ml/ Chromium/Copper/ Manganese/Seleni/ Zn 1 ml/Total Parenteral Nutrition/Amino Acids/Dextrose/ Fat Emuls... 1,920 ml @ 80 mls/hr TPN CONT IV Last administered on 07/27/16 22:38; Start 07/27/16 at 22:00; Stop 07/28/16 at 21:59 Sodium Chloride (Iv Sodium Chloride 0.9% 1000ml Bag) 1,000 ml @ 45 mls/hr [id number] IV Last administered on 07/28/16 03:24; Start 07/27/16 at 17:00 Acetaminophen 650 mg 650 mg PRN Q6HRS PRN AR fever Last administered on 20:08; Start 07/27/16 at 16:30 Sodium Chloride (Iv Sodium Chloride 0.9% 1000ml Bag) 1,000 ml @ 427.5 mls/ hr Q2H21M IV Last administered on 07/27/16 19:30; Start 07/27/16 at 19:30; Stop 07/27/16 at 23:30; Status DC Active Scripts Active Dilaudid (Hydromorphone Hcl) 4 Mg Tablet 4 Mg PO Q6HRS Phenazopyridine Hcl 200 Mg Tablet 200 Mg PO PRN TID PRN FENTANYL 50mcg/hr (Fentanyl) 1 Each Patch.td72 1 Patch TD Q3DAYS Anaspaz (Hyoscyamine Sulfate) 0.125 Mg Tab.rapdis 0.125 Mg PO Q6HRS PRN Cefpodoxime Proxetil 200 Mg Tablet 200 Mg PO BID Sertraline Hcl 50 Mg Tablet 100 Mg PO DAILY 30 Days Protonix (Pantoprazole Sodium) 40 Mg Tablet.dr 1 Tab PO DAILY Zinc Oxide 56.7 Gm Oint...g. 1 Sang TP BID Lidocaine 35.44 Gm Oint...g. 1 Sang TP BID Ondansetron Odt (Ondansetron) 4 Mg Tab.rapdis 8 Mg PO PRN Q8HRS PRN Gas-X (Simethicone) 80 Mg Tab.chew 80 Mg PO PRN QID PRN Reported Lorazepam 0.5 Mg Tablet 0.5 Mg PO PRN BID PRN Vitals/I & O Vital Sign - Last 24 Hours 07/27/16 07/27/16 07/27/16 07/27/16 10:42 10:47 11:12 11:22 Temp 99.9 99.9 Pulse 146 146 Resp 19 B/P 200/115 200/115 Pulse Ox 98 98 O2 Delivery Room Air Room Air Room Air 07/27/16 07/27/16 07/27/16 07/27/16 11:30 14:52 19:00 20:00 Temp 102.6 102.2 102.4 102.6 102.2 102.4 Pulse 134 114 Resp 20 28 B/P 165/79 143/71 Pulse Ox 98 98 O2 Delivery Room Air Room Air Room Air 07/27/16 07/27/16 07/27/16 07/27/16 20:00 21:00 22:00 23:00 Temp 101.7 101.7 Pulse 112 115 118 114 Resp 26 24 19 30 B/P 134/59 116/55 137/65 139/63 Pulse Ox 100 100 100 100 O2 Delivery Room Air Room Air Room Air Room Air 07/27/16 07/28/16 07/28/16 07/28/16 23:57 00:00 00:27 01:00 Pulse 127 Resp 20 21 25 B/P 137/77 Pulse Ox 100 98 100 O2 Delivery Room Air Room Air Room Air 07/28/16 07/28/16 07/28/16 07/28/16 02:00 03:00 04:00 04:00 Temp 99.1 99.1 Pulse 126 130 126 Resp 20 20 12 B/P 153/75 153/73 152/72 Pulse Ox 100 99 100 O2 Delivery Room Air Room Air Room Air Room Air 07/28/16 06:00 Pulse 126 Resp 24 B/P 152/91 Pulse Ox 100 O2 Delivery Room Air Intake and Output 07/27/16 07/27/16 07/28/16 15:00 23:00 07:00 Intake Total 290 ml 3413 ml Output Total 700 ml 1760 ml Balance -410 ml 1653 ml BENITA LUTZ MD Jul 28, 2016 10:25
[2016-07-28] MEDS: TPN PER PHARMACY MC PRN (10:58)
--- NOTE | 2016-07-28 11:46 | PDOC2 ---
NEUROLOGY CONSULT Date of Admission Date of Admission DATE: 07/28/16 TIME: 11:37 Reason for Consult Reason for Consult: Altered mental status Referring Physician Referring Physician: Dr. Cisneros Source Source: Chart review History of Present Illness History of Present Illness The patient is a 61-year-old right-handed female with history of enterocutaneous and enterovesical fistulas admitted several times for sepsis and neurology service has seen many of these occasions for metabolic encephalopathy. The patient was admitted 13 days ago with urinary tract infection in fevers. Yesterday she had deteriorating mental status along with fever. There was no seizure activity. There is no history of stroke or head injury. Past Medical History Cardiovascular: CAD, HTN, Other ( left upper extremity deep venous thrombosis) GI: Diverticulosis (diverticulitis) Heme/Onc: Cancer ( cervical, status-post hysterectomy) Psych: Anxiety, Depression Musculoskeletal: Osteoarthritis Infectious disease: Other ( fistulas as described above) Renal/: Chronic renal insuff, UTI Endocrine: Hypothyroidism Past Surgical History Past Surgical History: Tonsillectomy, Hysterectomy, Other ( bowel resections, bilateral hip fracture repair, multiple attempts to repair fistulas) Family History Family History: No pertinent hx Social History Social History Quit using alcohol and tobacco several years ago Current Medications Current Medications Current Medications Piperacillin Sod/ Tazobactam Sod/ Sodium Chloride (Zosyn/Iv Sodium Chloride 0.9 % 100ml) 100 ml @ 200 mls/hr 1X ONCE IV Last administered on 07/15/16 22:56; Start 07/15/16 at 22:00; Stop 07/15/16 at 22:29; Status DC Fentanyl Citrate 50 mcg 50 mcg PRN Q15MIN PRN IV PAIN GREATER THAN 3/10 Last administered on 07/16/16 00:30; Start 07/15/16 at 21:45; Stop 07/16/16 at 02:00; Status DC Sodium Chloride 1,000 ml @ 1,000 mls/hr 1X ONCE IV Last administered on 21:59; Start 07/15/16 at 22:00; Stop 07/15/16 at 22:59; Status DC Sodium Chloride (Iv Sodium Chloride 0.9% 500ml Bag) 500 ml @ 500 mls/hr 1X ONCE IV Last administered on 07/15/16 22:00; Start 07/15/16 at 22:00; Stop at 22:59; Status DC Ondansetron HCl (Zofran) 4 mg PRN Q8HRS PRN IV NAUSEA/VOMITING; Start 07/15/16 at 23:30; Stop 07/16/16 at 08:52; Status DC Fentanyl Citrate 50 mcg 50 mcg PRN Q2HR PRN IV SEVERE PAIN Last administered on 07/16/16 08:10; Start 07/15/16 at 23:30; Stop 07/16/16 at 08:52; Status DC Sodium Chloride (Iv Sodium Chloride 0.9% 1000ml Bag) 1,000 ml @ 150 mls/hr Q6H40M IV Last administered on 07/15/16 02:00; Start 07/15/16 at 23:45; Stop 07/16/16 at 08:52; Status DC Acetaminophen (Tylenol) 650 mg PRN Q4HRS PRN PO FEVER; Start 07/15/16 at 23:30; Stop 07/16/16 at 23:29; Status DC Info (Do NOT chart on this placeholder) 1 each PRN DAILY PRN MC NEEDS VERIFICATION; Start 07/16/16 at 03:00; Status Cancel Acetaminophen 650 mg 650 mg PRN Q4HRS PRN PO MILD PAIN / TEMP Last administered on 07/28/16 07:42; Start 07/16/16 at 08:45 Piperacillin Sod/ Tazobactam Sod 3.375 gm/Sodium Chloride 50 ml @ 100 mls/hr Q6HRS IV Last administered on 07/18/16 05:50; Start 07/16/16 at 10:00; Stop 07/18 at 13:28; Status DC Linezolid (Zyvox Premix) 300 ml @ 300 mls/hr Q12HR IV Last administered on 07/18 08:34; Start 07/16/16 at 10:00; Stop 07/18/16 at 13:28; Status DC Hydromorphone HCl (Dilaudid) 2 mg PRN Q4HRS PRN IV PAIN Last administered on 23:57; Start 07/16/16 at 08:45 Hydromorphone HCl (Dilaudid) 4 mg PRN Q4HRS PRN IV PAIN Last administered on 10:42; Start 07/16/16 at 08:45 Pantoprazole Sodium (Protonix) 40 mg DAILYAC PO Last administered on 07/27/16 11:11; Start 07/16/16 at 09:30 Hyoscyamine (Anaspaz) 0.125 mg Q6HRS PO Last administered on 07/20/16 05:20; Start 07/16/16 at 12:00; Stop 07/20/16 at 08:58; Status DC Phenazopyridine HCl (Pyridium) 200 mg TID PO Last administered on 07/20/16 08: 25; Start 07/16/16 at 09:30; Stop 07/20/16 at 08:58; Status DC Lorazepam (Ativan) 0.5 mg PRN BID PRN PO ANXIETY / AGITATION Last administered on 07/28/16 07:42; Start 07/16/16 at 08:45 Simethicone (Gas-X) 80 mg PRN Q4HRS PRN PO GAS / BLOATING Last administered on 07/24/16 22:30; Start 07/16/16 at 08:45 Zolpidem Tartrate 5 mg 5 mg PRN QHS PRN PO INSOMNIA Last administered on 23:14; Start 07/16/16 at 08:45 Potassium Chloride/Dextrose/ Sod Cl 1,000 ml @ 80 mls/hr [id number] IV Last administered on 07/16/16 10:54; Start 07/16/16 at 09:30; Stop 07/16/16 at 21:59; Status DC Fluconazole/ Sodium Chloride (Diflucan 200mg/ 100ml Premix) 100 ml @ 100 mls/ hr Q24H IV Last administered on 07/18/16 11:43; Start 07/16/16 at 11:00; Stop at 13:28; Status DC Info 1 each 1 each PRN DAILY PRN MC SEE COMMENTS Last administered on 10:58; Start 07/16/16 at 10:00 Sodium Chloride 220 meq/Sodium Acetate 90 meq/ Potassium Chloride 50 meq/ Potassium Acetate 15 meq/Potassium Phosphate 10 mmol/ Magnesium Sulfate 50 meq/ Calcium Gluconate 6 meq/ Multivitamins/ Minerals 10 ml/ Chromium/Copper/ Manganese/Seleni/ Zn 1 ml/Total Parenteral Nutrition/Amino Acids/Dextro... 1, 920 ml @ 80 mls/hr TPN CONT IV ; Start 07/16/16 at 22:00; Stop 07/16/16 at 22:00 ; Status DC Sodium Chloride/ Sodium Acetate/ Potassium Chloride/ Potassium Acetate/ Potassium Phosphate/ Magnesium Sulfate/ Calcium Gluconate/ Multivitamins/ Minerals/Chromium/ Copper/Manganese/ Seleni/Zn/Total Parenteral Nutrition/Amino Acids/Dextrose/ Fat Emulsion Intravenous (Sodium Chlori... 1,820 ml @ 75.833 mls/ hr TPN CONT IV Last administered on 07/16/16 21:03; Start 07/16/16 at 22: 00; Stop 07/17/16 at 21:59; Status DC Ondansetron HCl (Zofran) 4 mg PRN Q6HRS PRN IV NAUSEA/VOMITING Last administered on 07/21/16 08:48; Start 07/16/16 at 17:15 Diphenhydramine HCl (Benadryl) 25 mg PRN Q6HRS PRN PO ITCHING Last administered on 07/25/16 23:38; Start 07/16/16 at 17:45 Lidocaine (Xylocaine) 1 sang BID TP Last administered on 07/28/16 09:15; Start 07/17/16 at 09:00 Zinc Oxide 1 sang 1 sang BID TP Last administered on 07/28/16 09:15; Start at 09:30 Sodium Chloride/ Sodium Acetate/ Potassium Chloride/ Potassium Acetate/ Potassium Phosphate/ Magnesium Sulfate/ Calcium Gluconate/ Multivitamins/ Minerals/Chromium/ Copper/Manganese/ Seleni/Zn/Total Parenteral Nutrition/Amino Acids/Dextrose/ Fat Emulsion Intravenous (Sodium Chlori... 1,920 ml @ 80 mls/ hr TPN CONT IV Last administered on 07/17/16 22:13; Start 07/17/16 at 22:00; Stop 07/18/16 at 21:59; Status DC Furosemide 40 mg 40 mg 1X ONCE IVP Last administered on 07/18/16 11:43; Start 07/18/16 at 11:00; Stop 07/18/16 at 11:07; Status DC Sodium Chloride 220 meq/Sodium Acetate 90 meq/ Potassium Chloride 50 meq/ Potassium Acetate 15 meq/Potassium Phosphate 10 mmol/ Magnesium Sulfate 50 meq/ Calcium Gluconate 3 meq/ Multivitamins/ Minerals 10 ml/ Chromium/Copper/ Manganese/Seleni/ Zn 1 ml/Total Parenteral Nutrition/Amino Acids/Dextro... 1, 920 ml @ 80 mls/hr TPN CONT IV Last administered on 07/19/16 00:03; Start 07/18/16 at 22:00; Stop 07/19/16 at 21:59; Status DC Meropenem 1 gm/ Sodium Chloride 100 ml @ 200 mls/hr Q8HRS IV Last administered on 07/20/16 05:21; Start 07/18/16 at 14:00; Stop 07/20/16 at 11:25; Status DC Micafungin Sodium 100 mg/Dextrose 100 ml @ 100 mls/hr Q24H IV Last administered on 07/19/16 15:05; Start 07/18/16 at 14:00; Stop 07/20/16 at 11:25; Status DC Daptomycin/Sodium Chloride (Cubicin/Iv Sodium Chloride 0.9% 50ml) 50 ml @ 100 mls/hr Q24H IV Last administered on 07/19/16 16:56; Start 07/18/16 at 15:00; Stop 07/20/16 at 11:25; Status DC Alteplase, Recombinant (Cathflo) 2 mg 1X ONCE INT CAT Last administered on 07/19 06:24; Start 07/19/16 at 07:00; Stop 07/19/16 at 07:01; Status DC Gentamicin Sulfate 1 each 1 each PRN DAILY PRN MC SEE COMMENTS Last administered on 07/25/16 15:31; Start 07/19/16 at 12:15; Stop 07/25/16 at 16:14 ; Status DC Gentamicin Sulfate/Sodium Chloride (Iv Sodium Chloride 0.9% 100ml) 106.75 ml @ 106.75 mls/hr Q24H IV Last administered on 07/25/16 15:31; Start 07/19/16 at 13 :00; Stop 07/25/16 at 16:12; Status DC Gentamicin Sulfate 1 each 1 each 1X ONCE MC Last administered on 07/19/16 23: 00; Start 07/19/16 at 23:00; Stop 07/19/16 at 23:01; Status DC Sodium Chloride/ Sodium Acetate/ Potassium Chloride/ Potassium Acetate/ Potassium Phosphate/ Magnesium Sulfate/ Calcium Gluconate/ Multivitamins/ Minerals/Chromium/ Copper/Manganese/ Seleni/Zn/Total Parenteral Nutrition/Amino Acids/Dextrose/ Fat Emulsion Intravenous (Sodium Chlori... 1,920 ml @ 80 mls/ hr TPN CONT IV Last administered on 07/19/16 20:51; Start 07/19/16 at 22:00; Stop 07/20/16 at 21:59; Status DC Hyoscyamine (Anaspaz) 0.125 mg PRN Q6HRS PRN PO BLADDER SPASM; Start 07/20/16 at 09:00 Phenazopyridine HCl 200 mg 200 mg PRN TID PRN PO BLADDER SPASM Last administered on 07/21/16 20:14; Start 07/20/16 at 09:00 Linezolid 300 ml @ 300 mls/hr Q12HR IV Last administered on 07/25/16 09:02; Start 07/20/16 at 12:00; Stop 07/25/16 at 16:12; Status DC Sodium Chloride 220 meq/Sodium Acetate 90 meq/ Potassium Chloride 50 meq/ Potassium Acetate 15 meq/Potassium Phosphate 10 mmol/ Magnesium Sulfate 50 meq/ Calcium Gluconate 3 meq/ Multivitamins/ Minerals 10 ml/ Chromium/Copper/ Manganese/Seleni/ Zn 1 ml/Total Parenteral Nutrition/Amino Acids/Dextro... 1, 920 ml @ 80 mls/hr TPN CONT IV Last administered on 07/20/16 21:30; Start 07/20/16 at 22:00; Stop 07/21/16 at 21:59; Status DC Sodium Chloride/ Sodium Acetate/ Potassium Chloride/ Potassium Acetate/ Potassium Phosphate/ Magnesium Sulfate/ Multivitamins/ Minerals/Chromium/ Copper /Manganese/ Seleni/Zn/Total Parenteral Nutrition/Amino Acids/Dextrose/ Fat Emulsion Intravenous (Sodium Chloride/ Potass... 1,920 ml @ 80 mls/hr TPN CONT IV Last administered on 07/21/16 22:05; Start 07/21/16 at 22:00; Stop at 21:59; Status DC Alteplase, Recombinant 2 mg 2 mg PRN DAILY PRN INT CAT INFLAMMATION Last administered on 07/27/16 11:31; Start 07/21/16 at 15:00 Sodium Chloride 220 meq/Sodium Acetate 90 meq/ Potassium Chloride 50 meq/ Potassium Acetate 15 meq/Potassium Phosphate 10 mmol/ Magnesium Sulfate 50 meq/ Multivitamins/ Minerals 10 ml/ Chromium/Copper/ Manganese/Seleni/ Zn 1 ml/Total Parenteral Nutrition/Amino Acids/Dextrose/ Fat Emuls... 1,920 ml @ 80 mls/hr TPN CONT IV Last administered on 07/22/16 20:53; Start 07/22/16 at 22:00; Stop 07/23/16 at 21:59; Status DC Sodium Chloride/ Sodium Acetate/ Potassium Chloride/ Potassium Acetate/ Potassium Phosphate/ Magnesium Sulfate/ Multivitamins/ Minerals/Chromium/ Copper /Manganese/ Seleni/Zn/Total Parenteral Nutrition/Amino Acids/Dextrose/ Fat Emulsion Intravenous (Sodium Chloride/ Potass... 1,920 ml @ 80 mls/hr TPN CONT IV Last administered on 07/23/16 21:16; Start 07/23/16 at 22:00; Stop 07/24 at 21:59; Status DC Gentamicin Sulfate 1 each 1 each 1X ONCE MC ; Start 07/23/16 at 22:00; Stop 07/23 at 22:01; Status Cancel Sodium Chloride/ Sodium Acetate/ Potassium Chloride/ Potassium Acetate/ Potassium Phosphate/ Magnesium Sulfate/ Multivitamins/ Minerals/Chromium/ Copper /Manganese/ Seleni/Zn/Total Parenteral Nutrition/Amino Acids/Dextrose/ Fat Emulsion Intravenous (Sodium Chloride/ Potass... 1,920 ml @ 80 mls/hr TPN CONT IV Last administered on 07/24/16 21:15; Start 07/24/16 at 22:00; Stop 04/30 at 21:59; Status DC Gentamicin Sulfate 1 each 1X ONCE MC ; Start 07/25/16 at 12:30; Stop 07/25/16 at 12:31; Status Cancel Amlodipine Besylate 5 mg 5 mg DAILY PO Last administered on 07/27/16 11:12; Start 07/25/16 at 12:00 Sodium Chloride 220 meq/Sodium Acetate 90 meq/ Potassium Chloride 30 meq/ Potassium Acetate 15 meq/Potassium Phosphate 10 mmol/ Magnesium Sulfate 50 meq/ Multivitamins/ Minerals 10 ml/ Chromium/Copper/ Manganese/Seleni/ Zn 1 ml/Total Parenteral Nutrition/Amino Acids/Dextrose/ Fat Emuls... 1,920 ml @ 80 mls/hr TPN CONT IV Last administered on 07/25/16 22:25; Start 07/25/16 at 22:00; Stop 07/26/16 at 21:59; Status DC Sodium Chloride/ Sodium Acetate/ Potassium Chloride/ Potassium Acetate/ Potassium Phosphate/ Magnesium Sulfate/ Multivitamins/ Minerals/Chromium/ Copper /Manganese/ Seleni/Zn/Total Parenteral Nutrition/Amino Acids/Dextrose/ Fat Emulsion Intravenous (Sodium Chloride/ Potass... 1,920 ml @ 80 mls/hr TPN CONT IV Last administered on 07/26/16 23:16; Start 07/26/16 at 22:00; Stop at 21:59; Status DC Furosemide 20 mg 20 mg 1X ONCE IVP Last administered on 07/27/16 11:31; Start 07/27/16 at 09:00; Stop 07/27/16 at 09:01; Status DC Daptomycin 340 mg/ Sodium Chloride 50 ml @ 100 mls/hr Q24H IV Last administered on 07/27/16 18:15; Start 07/27/16 at 13:00 Piperacillin Sod/ Tazobactam Sod 3.375 gm/Sodium Chloride 50 ml @ 100 mls/hr Q6HRS IV Last administered on 07/28/16 06:23; Start 07/27/16 at 12:30 Fluconazole/ Sodium Chloride 100 ml @ 100 mls/hr Q24H IV Last administered on 07/27/16 15:22; Start 07/27/16 at 13:00 Sodium Chloride 1,000 ml @ 1,000 mls/hr 1X ONCE IV Last administered on 12:34; Start 07/27/16 at 12:30; Stop 07/27/16 at 13:29; Status DC Sodium Chloride 220 meq/Sodium Acetate 90 meq/ Potassium Chloride 30 meq/ Potassium Acetate 15 meq/Potassium Phosphate 10 mmol/ Magnesium Sulfate 45 meq/ Multivitamins/ Minerals 10 ml/ Chromium/Copper/ Manganese/Seleni/ Zn 1 ml/Total Parenteral Nutrition/Amino Acids/Dextrose/ Fat Emuls... 1,920 ml @ 80 mls/hr TPN CONT IV Last administered on 07/27/16 22:38; Start 07/27/16 at 22:00; Stop 07/28/16 at 21:59 Sodium Chloride (Iv Sodium Chloride 0.9% 1000ml Bag) 1,000 ml @ 45 mls/hr [id number] IV Last administered on 07/28/16 03:24; Start 07/27/16 at 17:00; Stop 07/28/16 at 10:27; Status DC Acetaminophen 650 mg 650 mg PRN Q6HRS PRN MS fever Last administered on 20:08; Start 07/27/16 at 16:30 Sodium Chloride (Iv Sodium Chloride 0.9% 1000ml Bag) 1,000 ml @ 427.5 mls/ hr Q2H21M IV Last administered on 07/27/16 19:30; Start 07/27/16 at 19:30; Stop 07/27/16 at 23:30; Status DC Active Scripts Active Dilaudid (Hydromorphone Hcl) 4 Mg Tablet 4 Mg PO Q6HRS Phenazopyridine Hcl 200 Mg Tablet 200 Mg PO PRN TID PRN FENTANYL 50mcg/hr (Fentanyl) 1 Each Patch.td72 1 Patch TD Q3DAYS Anaspaz (Hyoscyamine Sulfate) 0.125 Mg Tab.rapdis 0.125 Mg PO Q6HRS PRN Cefpodoxime Proxetil 200 Mg Tablet 200 Mg PO BID Sertraline Hcl 50 Mg Tablet 100 Mg PO DAILY 30 Days Protonix (Pantoprazole Sodium) 40 Mg Tablet.dr 1 Tab PO DAILY Zinc Oxide 56.7 Gm Oint...g. 1 Sang TP BID Lidocaine 35.44 Gm Oint...g. 1 Sang TP BID Ondansetron Odt (Ondansetron) 4 Mg Tab.rapdis 8 Mg PO PRN Q8HRS PRN Gas-X (Simethicone) 80 Mg Tab.chew 80 Mg PO PRN QID PRN Reported Lorazepam 0.5 Mg Tablet 0.5 Mg PO PRN BID PRN Allergies Allergies: Coded Allergies: Iodinated Contrast Media - Oral and (Verified Allergy, Severe, Anaphylaxis , 12/05/15) PT HAS BEEN PREMEDICATED BEFORE WITH NO PROBLEMS, 11-27-14. vancomycin (Verified Allergy, Severe, Swelling, 12/05/15) adhesive tape (Verified Allergy, Intermediate, Rash, 12/05/15) silver (Verified Allergy, Intermediate, Rash, Tegaderm film, can have on abd but no where else, 12/05/15) codeine (Verified Adverse Reaction, Severe, Nausea and Vomiting, 12/11/15) ROS Review of System Negative for fevers, chills, weight loss, shortness of breath, chest pain, indigestion, hematochezia, melena, dysuria. Full 14-point review systems is negative. Physical Exam Physical Examination PHYSICAL EXAMINATION: Vital signs: see above. General appearance is normal and in no acute distress. HEENT: Normocephalic and nontraumatic. Eyes, nose, ears, and throat are unremarkable. Neck is supple. No lymphadenopathy. No bruits are heard over the carotid artery. No crepitus. NEUROLOGICAL EXAMINATION: Mental Status Examination: AlertsTo voice, able to tell me her name and that she is in the hospital. She does follow some commands. Otherwise she tends to be somnolent. Pupils are equal round and reactive to light and accommodation. Extraocular movements are intact. Visual field exam shows no defect on the direct confrontation. No motor or sensory deficits on the facial exam. Gross hearing is normal. Shoulder shrug normal. Muscle tone is normal. Motor exam : she moves all extremities. Deep tendon reflexes are 1+ around. Plantar reflex is flexor. Gait not tested Sensory: she responds to pinprick in all 4 extremities. Cerebellar: not cooperative. Vitals VITALS Vital Signs Date Time Temp Pulse Resp B/P Pulse Ox O2 Delivery O2 Flow Rate FiO2 07/28/16 06:00 126 24 152/91 100 Room Air 07/28/16 04:00 99.1 99.1 Labs Labs Laboratory Tests Test 07/26/16 14:13 07/27/16 04:00 07/27/16 14:15 07/28/16 06:25 Influenza Type A Antigen Negative (NEGATIVE) Influenza Type B Antigen Negative (NEGATIVE) White Blood Count 3.9x10^3/uL (4.0-11.0) 4.6x10^3/uL (4.0-11.0) Red Blood Count 3.67x10^6/uL (3.50-5.40) 3.80x10^6/uL (3.50-5.40) Hemoglobin 9.6g/dL (12.0-15.5) 9.6g/dL (12.0-15.5) Hematocrit 29.7% (36.0-47.0) 30.1% (36.0-47.0) Mean Corpuscular Volume 81fL (79-100) 79fL (79-100) Mean Corpuscular Hemoglobin 26pg (25-35) 25pg (25-35) Mean Corpuscular Hemoglobin Concent 32g/dL (31-37) 32g/dL (31-37) Red Cell Distribution Width 19.4% (11.5-14.5) 19.7% (11.5-14.5) Platelet Count 342x10^3/uL (140-400) 270x10^3/uL (140-400) Neutrophils (%) (Auto) 64% (31-73) 91% (31-73) Lymphocytes (%) (Auto) 24% (24-48) 6% (24-48) Monocytes (%) (Auto) 6% (0-9) 3% (0-9) Eosinophils (%) (Auto) 4% (0-3) 0% (0-3) Basophils (%) (Auto) 1% (0-3) 1% (0-3) Neutrophils # (Auto) 2.5x10^3uL (1.8-7.7) 4.2x10^3uL (1.8-7.7) Lymphocytes # (Auto) 0.9x10^3/uL (1.0-4.8) 0.3x10^3/uL (1.0-4.8) Monocytes # (Auto) 0.3x10^3/uL (0.0-1.1) 0.2x10^3/uL (0.0-1.1) Eosinophils # (Auto) 0.1x10^3/uL (0.0-0.7) 0.0x10^3/uL (0.0-0.7) Basophils # (Auto) 0.1x10^3/uL (0.0-0.2) 0.0x10^3/uL (0.0-0.2) Sodium Level 137mmol/L (136-145) 137mmol/L (136-145) Potassium Level 4.4mmol/L (3.5-5.1) 3.9mmol/L (3.5-5.1) Chloride Level 103mmol/L (98-107) 104mmol/L (98-107) Carbon Dioxide Level 25mmol/L (21-32) 20mmol/L (21-32) Anion Gap 9 (6-14) 13 (6-14) Blood Urea Nitrogen 18mg/dL (7-20) 13mg/dL (7-20) Creatinine 0.7mg/dL (0.6-1.0) 0.8mg/dL (0.6-1.0) Estimated GFR (Cockcroft-Gault) 102.9 88.2 BUN/Creatinine Ratio 26 (6-20) 16 (6-20) Glucose Level 109mg/dL (70-99) 116mg/dL (70-99) Calcium Level 8.8mg/dL (8.5-10.1) 8.4mg/dL (8.5-10.1) Magnesium Level 2.5mg/dL (1.8-2.4) 2.1mg/dL (1.8-2.4) Total Bilirubin 0.4mg/dL (0.2-1.0) 1.2mg/dL (0.2-1.0) Aspartate Amino Transf (AST/SGOT) 16U/L (15-37) 26U/L (15-37) Alanine Aminotransferase (ALT/SGPT) 15U/L (14-59) 15U/L (14-59) Alkaline Phosphatase 310U/L (46-116) 304U/L (46-116) Total Protein 7.7g/dL (6.4-8.2) 7.5g/dL (6.4-8.2) Albumin 2.1g/dL (3.4-5.0) 2.0g/dL (3.4-5.0) Albumin/Globulin Ratio 0.4 (1.0-1.7) 0.4 (1.0-1.7) Lactic Acid Level 1.3mmol/L (0.4-2.0) Segmented Neutrophils % 78% (35-66) Band Neutrophils % 11% (0-9) Lymphocytes % 11% (24-48) Platelet Estimate Adequate (ADEQUATE) Phosphorus Level 3.5mg/dL (2.6-4.7) Laboratory Tests Test 07/27/16 14:15 07/28/16 06:25 Lactic Acid Level 1.3mmol/L (0.4-2.0) White Blood Count 4.6x10^3/uL (4.0-11.0) Red Blood Count 3.80x10^6/uL (3.50-5.40) Hemoglobin 9.6g/dL (12.0-15.5) Hematocrit 30.1% (36.0-47.0) Mean Corpuscular Volume 79fL (79-100) Mean Corpuscular Hemoglobin 25pg (25-35) Mean Corpuscular Hemoglobin Concent 32g/dL (31-37) Red Cell Distribution Width 19.7% (11.5-14.5) Platelet Count 270x10^3/uL (140-400) Neutrophils (%) (Auto) 91% (31-73) Lymphocytes (%) (Auto) 6% (24-48) Monocytes (%) (Auto) 3% (0-9) Eosinophils (%) (Auto) 0% (0-3) Basophils (%) (Auto) 1% (0-3) Neutrophils # (Auto) 4.2x10^3uL (1.8-7.7) Lymphocytes # (Auto) 0.3x10^3/uL (1.0-4.8) Monocytes # (Auto) 0.2x10^3/uL (0.0-1.1) Eosinophils # (Auto) 0.0x10^3/uL (0.0-0.7) Basophils # (Auto) 0.0x10^3/uL (0.0-0.2) Segmented Neutrophils % 78% (35-66) Band Neutrophils % 11% (0-9) Lymphocytes % 11% (24-48) Platelet Estimate Adequate (ADEQUATE) Sodium Level 137mmol/L (136-145) Potassium Level 3.9mmol/L (3.5-5.1) Chloride Level 104mmol/L (98-107) Carbon Dioxide Level 20mmol/L (21-32) Anion Gap 13 (6-14) Blood Urea Nitrogen 13mg/dL (7-20) Creatinine 0.8mg/dL (0.6-1.0) Estimated GFR (Cockcroft-Gault) 88.2 BUN/Creatinine Ratio 16 (6-20) Glucose Level 116mg/dL (70-99) Calcium Level 8.4mg/dL (8.5-10.1) Phosphorus Level 3.5mg/dL (2.6-4.7) Magnesium Level 2.1mg/dL (1.8-2.4) Total Bilirubin 1.2mg/dL (0.2-1.0) Aspartate Amino Transf (AST/SGOT) 26U/L (15-37) Alanine Aminotransferase (ALT/SGPT) 15U/L (14-59) Alkaline Phosphatase 304U/L (46-116) Total Protein 7.5g/dL (6.4-8.2) Albumin 2.0g/dL (3.4-5.0) Albumin/Globulin Ratio 0.4 (1.0-1.7) Images Images CT head: 1. No acute intracranial hemorrhage. 2. Scattered regions of low attenuation within the white matter. Non-specific in nature but frequently secondary to chronic small vessel ischemic disease. 3. Prominence of ventricles and sulci which is frequently secondary to age related volume loss. Assessment/Plan Assessment/Plan Impression: Metabolic encephalopathy due to sepsis, no evidence of other intrinsic neurological problem. Recommendations: No additional neurological investigations needed Will follow with you Thank you for letting me up with the patient's care. LISSA ANTOINE MD Jul 28, 2016 11:46
[2016-07-28] MEDS: HYDROMORPHONE 2 MG/ML VIAL. IV PRN ×3 (13:23→23:33)
[2016-07-28] MEDS: NORMAL SALINE IV SCH (13:31)
[2016-07-28] MEDS: DAPTOMYCIN IV SCH (13:31)
[2016-07-28] MEDS: FLUCONAZOLE 200MG/100ML PREMIX 100 ML IV SCH (13:32)
--- NOTE | 2016-07-28 14:18 | RAD ---
INDICATION: Fever and elevated bilirubin COMPARISON: 07/15/2016 TECHNIQUE: Grayscale and color ultrasound images obtained through the abdomen. FINDINGS: Aorta/IVC: Poorly seen Pancreas: Poorly seen Liver: Echotexture within normal limits. Gallbladder: Removed Common Bile Duct: Not dilated. Right Kidney: No hydronephrosis. Left Kidney: No hydronephrosis. Spleen: 13 cm, borderline enlarged. IMPRESSION: The common bile duct does not appear dilated post cholecystectomy.
[2016-07-28] MEDS: ACETAMINOPHEN 650 MG SUPP.RECT. PR PRN ×2 (15:45→21:52)
[2016-07-28] MEDS ORDERED: [UNRECOGNIZED DRUG - OTHER] IV SCH ×11 (22:00)
[2016-07-28] MEDS ORDERED: TOTAL PARENTERAL NUTRITION IV SCH ×11 (22:00)
[2016-07-28] MEDS ORDERED: AMINO ACIDS IV SCH ×11 (22:00)
[2016-07-28] MEDS ORDERED: DEXTROSE 70% IV SCH ×11 (22:00)
[2016-07-29] VITALS (27 sets, daily range): BP systolic 83–157; BP diastolic 47–83
[2016-07-29] MEDS: PIPERACILLIN/TAZOBACTAM 3.375 GM in IV NORMAL SALINE 50ML 50 ML IV SCH ×5 (00:33→23:41)
[2016-07-29] MEDS: MICAFUNGIN 100 MG in IV DEXTROSE 5% 100 ML IV SCH (01:28)
[2016-07-29] MEDS: LORAZEPAM 0.5 MG TABLET. PO PRN (02:16)
[2016-07-29] MEDS ORDERED: LORAZEPAM 2 MG/ML VIAL IV PRN (02:30)
[2016-07-29] MEDS: LORAZEPAM 2 MG/ML VIAL IV PRN (03:18)
[2016-07-29] MEDS: ACETAMINOPHEN 650 MG SUPP.RECT. PR PRN (03:57)
[2016-07-29] MEDS: HYDROMORPHONE 2 MG/ML VIAL. IV PRN ×4 (05:56→21:04)
[2016-07-29 05:59] LABS: BASO # 0.1 x10^3/uL (0.0-0.2); BASO % 1 % (0-3); EOS % 0 % (0-3); HEMATOCRIT 30.4 % (36.0-47.0); HEMOGLOBIN 9.8 g/dL (12.0-15.5); LYMPH # 0.1 x10^3/uL (1.0-4.8); LYMPH % 2 % (24-48); MEAN CORPUSCULAR HEMOGLOBIN 26 pg (25-35); MEAN CORPUSCULAR HGB CONC 32 g/dL (31-37); MEAN CORPUSCULAR VOLUME 81 fL (79-100); MONO % 1 % (0-9); NEUT % 96 % (31-73); PLATELET COUNT 213 x10^3/uL (140-400); RED BLOOD COUNT 3.75 x10^6/uL (3.50-5.40); RED CELL DISTRIBUTION WIDTH 19.7 % (11.5-14.5); WHITE BLOOD COUNT 8.7 x10^3/uL (4.0-11.0)
[2016-07-29 06:13] LABS: CALCIUM 8.6 mg/dL (8.5-10.1); CREATININE 0.9 mg/dL (0.6-1.0); POTASSIUM 4.4 mmol/L (3.5-5.1)
[2016-07-29 06:16] LABS: ALBUMIN 1.9 g/dL (3.4-5.0); DIRECT BILIRUBIN 1.3 mg/dL (0.0-0.2); TOTAL BILIRUBIN 1.8 mg/dL (0.2-1.0); TOTAL PROTEIN 6.7 g/dL (6.4-8.2)
[2016-07-29] MEDS: PANTOPRAZOLE 40 MG TABLET. PO SCH (07:30)
--- NOTE | 2016-07-29 08:07 | PDOC ---
Infectious Disease Note Subjective Subjective fever, confusion ROS ROS unable to do no vomiting or diarrhea Vital Sign Vital Signs Vital Signs Date Time Temp Pulse Resp B/P Pulse Ox O2 Delivery O2 Flow Rate FiO2 07/29/16 06:45 Room Air 07/29/16 06:00 103.1 139 30 95/54 98 103.1 Physical Exam PHYSICAL EXAM GENERAL: NAD, Alert HEENT: PERRL, OC/OP NECK: Supple, no JVD, no LN LUNGS: Clear HEART: S1S2, no gallop, no murmur ABD: Soft, NT, no organomegaly, no rebound, ec fistula EXT: No edema, no cyanosis ADVERTISING STRATEGIST: Alert,, no focal neurologic deficit, confused SKIN: No rash IV: ok Labs Lab Laboratory Tests Test 07/29/16 05:30 White Blood Count 8.7x10^3/uL (4.0-11.0) Red Blood Count 3.75x10^6/uL (3.50-5.40) Hemoglobin 9.8g/dL (12.0-15.5) Hematocrit 30.4% (36.0-47.0) Mean Corpuscular Volume 81fL (79-100) Mean Corpuscular Hemoglobin 26pg (25-35) Mean Corpuscular Hemoglobin Concent 32g/dL (31-37) Red Cell Distribution Width 19.7% (11.5-14.5) Platelet Count 213x10^3/uL (140-400) Neutrophils (%) (Auto) 96% (31-73) Lymphocytes (%) (Auto) 2% (24-48) Monocytes (%) (Auto) 1% (0-9) Eosinophils (%) (Auto) 0% (0-3) Basophils (%) (Auto) 1% (0-3) Neutrophils # (Auto) 8.4x10^3uL (1.8-7.7) Lymphocytes # (Auto) 0.1x10^3/uL (1.0-4.8) Monocytes # (Auto) 0.1x10^3/uL (0.0-1.1) Eosinophils # (Auto) 0.0x10^3/uL (0.0-0.7) Basophils # (Auto) 0.1x10^3/uL (0.0-0.2) Sodium Level 137mmol/L (136-145) Potassium Level 4.4mmol/L (3.5-5.1) Chloride Level 106mmol/L (98-107) Carbon Dioxide Level 20mmol/L (21-32) Anion Gap 11 (6-14) Blood Urea Nitrogen 14mg/dL (7-20) Creatinine 0.9mg/dL (0.6-1.0) Estimated GFR (Cockcroft-Gault) 77.0 Glucose Level 119mg/dL (70-99) Calcium Level 8.6mg/dL (8.5-10.1) Magnesium Level 2.4mg/dL (1.8-2.4) Total Bilirubin 1.8mg/dL (0.2-1.0) Direct Bilirubin 1.3mg/dL (0.0-0.2) Aspartate Amino Transf (AST/SGOT) 47U/L (15-37) Alanine Aminotransferase (ALT/SGPT) 23U/L (14-59) Alkaline Phosphatase 238U/L (46-116) Total Protein 6.7g/dL (6.4-8.2) Albumin 1.9g/dL (3.4-5.0) Micro BC neg Objective Assessment Fever and chills - Acute Anemia - s/p PRBCs Urine MDR Enterobacter and Amp res Enterococcus 2/1 EC fistula Enterovesicular fistula Abdominal excoriation Plan Plan of Care dapto and zosyn and micafungin supportive care d/w dr Cisneros will d/c JOSSY Moreno MD Jul 29, 2016 08:07
[2016-07-29] MEDS: AMLODIPINE BESYLATE 5 MG TABLET PO SCH (08:16)
[2016-07-29] MEDS ORDERED: ACETAMINOPHEN 650 MG SUPP.RECT. PR PRN (08:30)
--- NOTE | 2016-07-29 08:52 | PDOC ---
PROGRESS NOTES Subjective Subjective febrile. eyes open but does not respond much. systolic bp 92. lab reviewed. will need tunneled picc removed this morning [place] by IR. discussed with nurse and daughter. blood cultures 07/27 neg so far. cxr negative. abdominal ultrasound negative. she has limited options for tunneled PICC . Objective Objective Vital Signs Date Time Temp Pulse Resp B/P Pulse Ox O2 Delivery O2 Flow Rate FiO2 07/29/16 06:45 Room Air 07/29/16 06:00 103.1 139 30 95/54 98 103.1 Intake and Output 07/29/16 06:59 Intake Total 3910 ml Output Total 1605 ml Balance 2305 ml Intake Oral 300 ml IV Total 3610 ml Output Urine Total 1605 ml Physical Exam Abdomen: Soft Heart: Regular rate, Normal S1, Normal S2 Extremities: Other (1 plus edema feet) General: Other (eyes open) HEENT: Mucous membr. moist/pink Lungs: Clear to auscultation, Normal air movement Neuro: Other (eyes open) Psych/Mental Status: Mental status NL, Mood NL Skin: No rashes, No breakdown, No significant lesion Assessment Assessment Problems Medical Problems::Urinary tract infection. enterococcus and MDR enterobacter treated 2. Bladder spasms. resolved 3. Fever and sepsis 4. Enterocutaneous fistula. 5. Enterovesical fistula. 6. Anemia of chronic disease. 7. Moderately severe protein calorie malnutrition. hypertension - BP low metabolic encephalopathy (1) Abdominal pain Status: Acute (2) Enterocutaneous fistula Status: Acute (3) Sepsis Status: Acute (4) Urinary tract infection Status: Acute (5) UTI (urinary tract infection) Status: Acute Plan Plan of Care d/c tunneled picc via IR iv daptomycin and zosyn and micafungin TPN start iv normal saline iv protonix scd legs await blood culture results and culture picc tip Comment Review of Relevant I have reviewed the following items lucila (where applicable) has been applied. Labs Laboratory Tests Test 07/27/16 14:15 07/27/16 20:20 07/28/16 06:25 07/29/16 05:30 Lactic Acid Level 1.3mmol/L (0.4-2.0) Nasal Screen MRSA (PCR) Negative (Negative) Clostridium difficile Toxin (PCR) Negative (Negative) White Blood Count 4.6x10^3/uL (4.0-11.0) 8.7x10^3/uL (4.0-11.0) Red Blood Count 3.80x10^6/uL (3.50-5.40) 3.75x10^6/uL (3.50-5.40) Hemoglobin 9.6g/dL (12.0-15.5) 9.8g/dL (12.0-15.5) Hematocrit 30.1% (36.0-47.0) 30.4% (36.0-47.0) Mean Corpuscular Volume 79fL (79-100) 81fL (79-100) Mean Corpuscular Hemoglobin 25pg (25-35) 26pg (25-35) Mean Corpuscular Hemoglobin Concent 32g/dL (31-37) 32g/dL (31-37) Red Cell Distribution Width 19.7% (11.5-14.5) 19.7% (11.5-14.5) Platelet Count 270x10^3/uL (140-400) 213x10^3/uL (140-400) Neutrophils (%) (Auto) 91% (31-73) 96% (31-73) Lymphocytes (%) (Auto) 6% (24-48) 2% (24-48) Monocytes (%) (Auto) 3% (0-9) 1% (0-9) Eosinophils (%) (Auto) 0% (0-3) 0% (0-3) Basophils (%) (Auto) 1% (0-3) 1% (0-3) Neutrophils # (Auto) 4.2x10^3uL (1.8-7.7) 8.4x10^3uL (1.8-7.7) Lymphocytes # (Auto) 0.3x10^3/uL (1.0-4.8) 0.1x10^3/uL (1.0-4.8) Monocytes # (Auto) 0.2x10^3/uL (0.0-1.1) 0.1x10^3/uL (0.0-1.1) Eosinophils # (Auto) 0.0x10^3/uL (0.0-0.7) 0.0x10^3/uL (0.0-0.7) Basophils # (Auto) 0.0x10^3/uL (0.0-0.2) 0.1x10^3/uL (0.0-0.2) Segmented Neutrophils % 78% (35-66) Band Neutrophils % 11% (0-9) Lymphocytes % 11% (24-48) Platelet Estimate Adequate (ADEQUATE) Sodium Level 137mmol/L (136-145) 137mmol/L (136-145) Potassium Level 3.9mmol/L (3.5-5.1) 4.4mmol/L (3.5-5.1) Chloride Level 104mmol/L (98-107) 106mmol/L (98-107) Carbon Dioxide Level 20mmol/L (21-32) 20mmol/L (21-32) Anion Gap 13 (6-14) 11 (6-14) Blood Urea Nitrogen 13mg/dL (7-20) 14mg/dL (7-20) Creatinine 0.8mg/dL (0.6-1.0) 0.9mg/dL (0.6-1.0) Estimated GFR (Cockcroft-Gault) 88.2 77.0 BUN/Creatinine Ratio 16 (6-20) Glucose Level 116mg/dL (70-99) 119mg/dL (70-99) Calcium Level 8.4mg/dL (8.5-10.1) 8.6mg/dL (8.5-10.1) Phosphorus Level 3.5mg/dL (2.6-4.7) Magnesium Level 2.1mg/dL (1.8-2.4) 2.4mg/dL (1.8-2.4) Total Bilirubin 1.2mg/dL (0.2-1.0) 1.8mg/dL (0.2-1.0) Aspartate Amino Transf (AST/SGOT) 26U/L (15-37) 47U/L (15-37) Alanine Aminotransferase (ALT/SGPT) 15U/L (14-59) 23U/L (14-59) Alkaline Phosphatase 304U/L (46-116) 238U/L (46-116) Total Protein 7.5g/dL (6.4-8.2) 6.7g/dL (6.4-8.2) Albumin 2.0g/dL (3.4-5.0) 1.9g/dL (3.4-5.0) Albumin/Globulin Ratio 0.4 (1.0-1.7) Direct Bilirubin 1.3mg/dL (0.0-0.2) Laboratory Tests Test 07/29/16 05:30 White Blood Count 8.7x10^3/uL (4.0-11.0) Red Blood Count 3.75x10^6/uL (3.50-5.40) Hemoglobin 9.8g/dL (12.0-15.5) Hematocrit 30.4% (36.0-47.0) Mean Corpuscular Volume 81fL (79-100) Mean Corpuscular Hemoglobin 26pg (25-35) Mean Corpuscular Hemoglobin Concent 32g/dL (31-37) Red Cell Distribution Width 19.7% (11.5-14.5) Platelet Count 213x10^3/uL (140-400) Neutrophils (%) (Auto) 96% (31-73) Lymphocytes (%) (Auto) 2% (24-48) Monocytes (%) (Auto) 1% (0-9) Eosinophils (%) (Auto) 0% (0-3) Basophils (%) (Auto) 1% (0-3) Neutrophils # (Auto) 8.4x10^3uL (1.8-7.7) Lymphocytes # (Auto) 0.1x10^3/uL (1.0-4.8) Monocytes # (Auto) 0.1x10^3/uL (0.0-1.1) Eosinophils # (Auto) 0.0x10^3/uL (0.0-0.7) Basophils # (Auto) 0.1x10^3/uL (0.0-0.2) Sodium Level 137mmol/L (136-145) Potassium Level 4.4mmol/L (3.5-5.1) Chloride Level 106mmol/L (98-107) Carbon Dioxide Level 20mmol/L (21-32) Anion Gap 11 (6-14) Blood Urea Nitrogen 14mg/dL (7-20) Creatinine 0.9mg/dL (0.6-1.0) Estimated GFR (Cockcroft-Gault) 77.0 Glucose Level 119mg/dL (70-99) Calcium Level 8.6mg/dL (8.5-10.1) Magnesium Level 2.4mg/dL (1.8-2.4) Total Bilirubin 1.8mg/dL (0.2-1.0) Direct Bilirubin 1.3mg/dL (0.0-0.2) Aspartate Amino Transf (AST/SGOT) 47U/L (15-37) Alanine Aminotransferase (ALT/SGPT) 23U/L (14-59) Alkaline Phosphatase 238U/L (46-116) Total Protein 6.7g/dL (6.4-8.2) Albumin 1.9g/dL (3.4-5.0) Microbiology 07/27/16 Blood Culture - Preliminary, Resulted NO GROWTH AFTER 1 DAY 07/15/16 Urine Culture - Final, Complete 07/15/16 Urine Culture Result 1 (ROYA) - Final, Complete 07/15/16 Urine Culture Result 2 (ROYA) - Final, Complete 07/15/16 Antimicrobic Susceptibility - Final, Complete Medications Current Medications Piperacillin Sod/ Tazobactam Sod/ Sodium Chloride (Zosyn/Iv Sodium Chloride 0.9 % 100ml) 100 ml @ 200 mls/hr 1X ONCE IV Last administered on 07/15/16 22:56; Start 07/15/16 at 22:00; Stop 07/15/16 at 22:29; Status DC Fentanyl Citrate 50 mcg 50 mcg PRN Q15MIN PRN IV PAIN GREATER THAN 3/10 Last administered on 07/16/16 00:30; Start 07/15/16 at 21:45; Stop 07/16/16 at 02:00; Status DC Sodium Chloride 1,000 ml @ 1,000 mls/hr 1X ONCE IV Last administered on 21:59; Start 07/15/16 at 22:00; Stop 07/15/16 at 22:59; Status DC Sodium Chloride (Iv Sodium Chloride 0.9% 500ml Bag) 500 ml @ 500 mls/hr 1X ONCE IV Last administered on 07/15/16 22:00; Start 07/15/16 at 22:00; Stop at 22:59; Status DC Ondansetron HCl (Zofran) 4 mg PRN Q8HRS PRN IV NAUSEA/VOMITING; Start 07/15/16 at 23:30; Stop 07/16/16 at 08:52; Status DC Fentanyl Citrate 50 mcg 50 mcg PRN Q2HR PRN IV SEVERE PAIN Last administered on 07/16/16 08:10; Start 07/15/16 at 23:30; Stop 07/16/16 at 08:52; Status DC Sodium Chloride (Iv Sodium Chloride 0.9% 1000ml Bag) 1,000 ml @ 150 mls/hr Q6H40M IV Last administered on 07/15/16 02:00; Start 07/15/16 at 23:45; Stop 07/16/16 at 08:52; Status DC Acetaminophen (Tylenol) 650 mg PRN Q4HRS PRN PO FEVER; Start 07/15/16 at 23:30; Stop 07/16/16 at 23:29; Status DC Info (Do NOT chart on this placeholder) 1 each PRN DAILY PRN MC NEEDS VERIFICATION; Start 07/16/16 at 03:00; Status Cancel Acetaminophen 650 mg 650 mg PRN Q4HRS PRN PO MILD PAIN / TEMP Last administered on 07/28/16 07:42; Start 07/16/16 at 08:45; Stop 07/29/16 at 08:33 ; Status DC Piperacillin Sod/ Tazobactam Sod 3.375 gm/Sodium Chloride 50 ml @ 100 mls/hr Q6HRS IV Last administered on 07/18/16 05:50; Start 07/16/16 at 10:00; Stop 07/18 at 13:28; Status DC Linezolid (Zyvox Premix) 300 ml @ 300 mls/hr Q12HR IV Last administered on 07/18 08:34; Start 07/16/16 at 10:00; Stop 07/18/16 at 13:28; Status DC Hydromorphone HCl (Dilaudid) 2 mg PRN Q4HRS PRN IV PAIN Last administered on 23:33; Start 07/16/16 at 08:45 Hydromorphone HCl (Dilaudid) 4 mg PRN Q4HRS PRN IV PAIN Last administered on 05:56; Start 07/16/16 at 08:45 Pantoprazole Sodium (Protonix) 40 mg DAILYAC PO Last administered on 07/27/16 11:11; Start 07/16/16 at 09:30 Hyoscyamine (Anaspaz) 0.125 mg Q6HRS PO Last administered on 07/20/16 05:20; Start 07/16/16 at 12:00; Stop 07/20/16 at 08:58; Status DC Phenazopyridine HCl (Pyridium) 200 mg TID PO Last administered on 07/20/16 08: 25; Start 07/16/16 at 09:30; Stop 07/20/16 at 08:58; Status DC Lorazepam (Ativan) 0.5 mg PRN BID PRN PO ANXIETY / AGITATION Last administered on 07/29/16 02:16; Start 07/16/16 at 08:45 Simethicone (Gas-X) 80 mg PRN Q4HRS PRN PO GAS / BLOATING Last administered on 07/24/16 22:30; Start 07/16/16 at 08:45 Zolpidem Tartrate 5 mg 5 mg PRN QHS PRN PO INSOMNIA Last administered on 23:14; Start 07/16/16 at 08:45 Potassium Chloride/Dextrose/ Sod Cl 1,000 ml @ 80 mls/hr [id number] IV Last administered on 07/16/16 10:54; Start 07/16/16 at 09:30; Stop 07/16/16 at 21:59; Status DC Fluconazole/ Sodium Chloride (Diflucan 200mg/ 100ml Premix) 100 ml @ 100 mls/ hr Q24H IV Last administered on 07/18/16 11:43; Start 07/16/16 at 11:00; Stop at 13:28; Status DC Info 1 each 1 each PRN DAILY PRN MC SEE COMMENTS Last administered on 10:58; Start 07/16/16 at 10:00 Sodium Chloride 220 meq/Sodium Acetate 90 meq/ Potassium Chloride 50 meq/ Potassium Acetate 15 meq/Potassium Phosphate 10 mmol/ Magnesium Sulfate 50 meq/ Calcium Gluconate 6 meq/ Multivitamins/ Minerals 10 ml/ Chromium/Copper/ Manganese/Seleni/ Zn 1 ml/Total Parenteral Nutrition/Amino Acids/Dextro... 1, 920 ml @ 80 mls/hr TPN CONT IV ; Start 07/16/16 at 22:00; Stop 07/16/16 at 22:00 ; Status DC Sodium Chloride/ Sodium Acetate/ Potassium Chloride/ Potassium Acetate/ Potassium Phosphate/ Magnesium Sulfate/ Calcium Gluconate/ Multivitamins/ Minerals/Chromium/ Copper/Manganese/ Seleni/Zn/Total Parenteral Nutrition/Amino Acids/Dextrose/ Fat Emulsion Intravenous (Sodium Chlori... 1,820 ml @ 75.833 mls/ hr TPN CONT IV Last administered on 07/16/16 21:03; Start 07/16/16 at 22: 00; Stop 07/17/16 at 21:59; Status DC Ondansetron HCl (Zofran) 4 mg PRN Q6HRS PRN IV NAUSEA/VOMITING Last administered on 07/21/16 08:48; Start 07/16/16 at 17:15 Diphenhydramine HCl (Benadryl) 25 mg PRN Q6HRS PRN PO ITCHING Last administered on 07/25/16 23:38; Start 07/16/16 at 17:45 Lidocaine (Xylocaine) 1 sang BID TP Last administered on 07/28/16 21:42; Start 07/17/16 at 09:00 Zinc Oxide 1 sang 1 sang BID TP Last administered on 07/28/16 21:42; Start at 09:30 Sodium Chloride/ Sodium Acetate/ Potassium Chloride/ Potassium Acetate/ Potassium Phosphate/ Magnesium Sulfate/ Calcium Gluconate/ Multivitamins/ Minerals/Chromium/ Copper/Manganese/ Seleni/Zn/Total Parenteral Nutrition/Amino Acids/Dextrose/ Fat Emulsion Intravenous (Sodium Chlori... 1,920 ml @ 80 mls/ hr TPN CONT IV Last administered on 07/17/16 22:13; Start 07/17/16 at 22:00; Stop 07/18/16 at 21:59; Status DC Furosemide 40 mg 40 mg 1X ONCE IVP Last administered on 07/18/16 11:43; Start 07/18/16 at 11:00; Stop 07/18/16 at 11:07; Status DC Sodium Chloride 220 meq/Sodium Acetate 90 meq/ Potassium Chloride 50 meq/ Potassium Acetate 15 meq/Potassium Phosphate 10 mmol/ Magnesium Sulfate 50 meq/ Calcium Gluconate 3 meq/ Multivitamins/ Minerals 10 ml/ Chromium/Copper/ Manganese/Seleni/ Zn 1 ml/Total Parenteral Nutrition/Amino Acids/Dextro... 1, 920 ml @ 80 mls/hr TPN CONT IV Last administered on 07/19/16 00:03; Start 07/18/16 at 22:00; Stop 07/19/16 at 21:59; Status DC Meropenem 1 gm/ Sodium Chloride 100 ml @ 200 mls/hr Q8HRS IV Last administered on 07/20/16 05:21; Start 07/18/16 at 14:00; Stop 07/20/16 at 11:25; Status DC Micafungin Sodium 100 mg/Dextrose 100 ml @ 100 mls/hr Q24H IV Last administered on 07/19/16 15:05; Start 07/18/16 at 14:00; Stop 07/20/16 at 11:25; Status DC Daptomycin/Sodium Chloride (Cubicin/Iv Sodium Chloride 0.9% 50ml) 50 ml @ 100 mls/hr Q24H IV Last administered on 07/19/16 16:56; Start 07/18/16 at 15:00; Stop 07/20/16 at 11:25; Status DC Alteplase, Recombinant (Cathflo) 2 mg 1X ONCE INT CAT Last administered on 07/19 06:24; Start 07/19/16 at 07:00; Stop 07/19/16 at 07:01; Status DC Gentamicin Sulfate 1 each 1 each PRN DAILY PRN MC SEE COMMENTS Last administered on 07/25/16 15:31; Start 07/19/16 at 12:15; Stop 07/25/16 at 16:14 ; Status DC Gentamicin Sulfate/Sodium Chloride (Iv Sodium Chloride 0.9% 100ml) 106.75 ml @ 106.75 mls/hr Q24H IV Last administered on 07/25/16 15:31; Start 07/19/16 at 13 :00; Stop 07/25/16 at 16:12; Status DC Gentamicin Sulfate 1 each 1 each 1X ONCE MC Last administered on 07/19/16 23: 00; Start 07/19/16 at 23:00; Stop 07/19/16 at 23:01; Status DC Sodium Chloride/ Sodium Acetate/ Potassium Chloride/ Potassium Acetate/ Potassium Phosphate/ Magnesium Sulfate/ Calcium Gluconate/ Multivitamins/ Minerals/Chromium/ Copper/Manganese/ Seleni/Zn/Total Parenteral Nutrition/Amino Acids/Dextrose/ Fat Emulsion Intravenous (Sodium Chlori... 1,920 ml @ 80 mls/ hr TPN CONT IV Last administered on 07/19/16 20:51; Start 07/19/16 at 22:00; Stop 07/20/16 at 21:59; Status DC Hyoscyamine (Anaspaz) 0.125 mg PRN Q6HRS PRN PO BLADDER SPASM; Start 07/20/16 at 09:00 Phenazopyridine HCl 200 mg 200 mg PRN TID PRN PO BLADDER SPASM Last administered on 07/21/16 20:14; Start 07/20/16 at 09:00 Linezolid 300 ml @ 300 mls/hr Q12HR IV Last administered on 07/25/16 09:02; Start 07/20/16 at 12:00; Stop 07/25/16 at 16:12; Status DC Sodium Chloride 220 meq/Sodium Acetate 90 meq/ Potassium Chloride 50 meq/ Potassium Acetate 15 meq/Potassium Phosphate 10 mmol/ Magnesium Sulfate 50 meq/ Calcium Gluconate 3 meq/ Multivitamins/ Minerals 10 ml/ Chromium/Copper/ Manganese/Seleni/ Zn 1 ml/Total Parenteral Nutrition/Amino Acids/Dextro... 1, 920 ml @ 80 mls/hr TPN CONT IV Last administered on 07/20/16 21:30; Start 07/20/16 at 22:00; Stop 07/21/16 at 21:59; Status DC Sodium Chloride/ Sodium Acetate/ Potassium Chloride/ Potassium Acetate/ Potassium Phosphate/ Magnesium Sulfate/ Multivitamins/ Minerals/Chromium/ Copper /Manganese/ Seleni/Zn/Total Parenteral Nutrition/Amino Acids/Dextrose/ Fat Emulsion Intravenous (Sodium Chloride/ Potass... 1,920 ml @ 80 mls/hr TPN CONT IV Last administered on 07/21/16 22:05; Start 07/21/16 at 22:00; Stop at 21:59; Status DC Alteplase, Recombinant 2 mg 2 mg PRN DAILY PRN INT CAT INFLAMMATION Last administered on 07/27/16 11:31; Start 07/21/16 at 15:00 Sodium Chloride 220 meq/Sodium Acetate 90 meq/ Potassium Chloride 50 meq/ Potassium Acetate 15 meq/Potassium Phosphate 10 mmol/ Magnesium Sulfate 50 meq/ Multivitamins/ Minerals 10 ml/ Chromium/Copper/ Manganese/Seleni/ Zn 1 ml/Total Parenteral Nutrition/Amino Acids/Dextrose/ Fat Emuls... 1,920 ml @ 80 mls/hr TPN CONT IV Last administered on 07/22/16 20:53; Start 07/22/16 at 22:00; Stop 07/23/16 at 21:59; Status DC Sodium Chloride/ Sodium Acetate/ Potassium Chloride/ Potassium Acetate/ Potassium Phosphate/ Magnesium Sulfate/ Multivitamins/ Minerals/Chromium/ Copper /Manganese/ Seleni/Zn/Total Parenteral Nutrition/Amino Acids/Dextrose/ Fat Emulsion Intravenous (Sodium Chloride/ Potass... 1,920 ml @ 80 mls/hr TPN CONT IV Last administered on 07/23/16 21:16; Start 07/23/16 at 22:00; Stop 07/24 at 21:59; Status DC Gentamicin Sulfate 1 each 1 each 1X ONCE MC ; Start 07/23/16 at 22:00; Stop 07/23 at 22:01; Status Cancel Sodium Chloride/ Sodium Acetate/ Potassium Chloride/ Potassium Acetate/ Potassium Phosphate/ Magnesium Sulfate/ Multivitamins/ Minerals/Chromium/ Copper /Manganese/ Seleni/Zn/Total Parenteral Nutrition/Amino Acids/Dextrose/ Fat Emulsion Intravenous (Sodium Chloride/ Potass... 1,920 ml @ 80 mls/hr TPN CONT IV Last administered on 07/24/16 21:15; Start 07/24/16 at 22:00; Stop 04/30 at 21:59; Status DC Gentamicin Sulfate 1 each 1X ONCE MC ; Start 07/25/16 at 12:30; Stop 07/25/16 at 12:31; Status Cancel Amlodipine Besylate 5 mg 5 mg DAILY PO Last administered on 07/27/16 11:12; Start 07/25/16 at 12:00 Sodium Chloride 220 meq/Sodium Acetate 90 meq/ Potassium Chloride 30 meq/ Potassium Acetate 15 meq/Potassium Phosphate 10 mmol/ Magnesium Sulfate 50 meq/ Multivitamins/ Minerals 10 ml/ Chromium/Copper/ Manganese/Seleni/ Zn 1 ml/Total Parenteral Nutrition/Amino Acids/Dextrose/ Fat Emuls... 1,920 ml @ 80 mls/hr TPN CONT IV Last administered on 07/25/16 22:25; Start 07/25/16 at 22:00; Stop 07/26/16 at 21:59; Status DC Sodium Chloride/ Sodium Acetate/ Potassium Chloride/ Potassium Acetate/ Potassium Phosphate/ Magnesium Sulfate/ Multivitamins/ Minerals/Chromium/ Copper /Manganese/ Seleni/Zn/Total Parenteral Nutrition/Amino Acids/Dextrose/ Fat Emulsion Intravenous (Sodium Chloride/ Potass... 1,920 ml @ 80 mls/hr TPN CONT IV Last administered on 07/26/16 23:16; Start 07/26/16 at 22:00; Stop at 21:59; Status DC Furosemide 20 mg 20 mg 1X ONCE IVP Last administered on 07/27/16 11:31; Start 07/27/16 at 09:00; Stop 07/27/16 at 09:01; Status DC Daptomycin 340 mg/ Sodium Chloride 50 ml @ 100 mls/hr Q24H IV Last administered on 07/28/16 13:31; Start 07/27/16 at 13:00 Piperacillin Sod/ Tazobactam Sod 3.375 gm/Sodium Chloride 50 ml @ 100 mls/hr Q6HRS IV Last administered on 07/29/16 05:51; Start 07/27/16 at 12:30 Fluconazole/ Sodium Chloride 100 ml @ 100 mls/hr Q24H IV Last administered on 07/28/16 13:32; Start 07/27/16 at 13:00; Stop 07/29/16 at 00:53; Status DC Sodium Chloride 1,000 ml @ 1,000 mls/hr 1X ONCE IV Last administered on 12:34; Start 07/27/16 at 12:30; Stop 07/27/16 at 13:29; Status DC Sodium Chloride 220 meq/Sodium Acetate 90 meq/ Potassium Chloride 30 meq/ Potassium Acetate 15 meq/Potassium Phosphate 10 mmol/ Magnesium Sulfate 45 meq/ Multivitamins/ Minerals 10 ml/ Chromium/Copper/ Manganese/Seleni/ Zn 1 ml/Total Parenteral Nutrition/Amino Acids/Dextrose/ Fat Emuls... 1,920 ml @ 80 mls/hr TPN CONT IV Last administered on 07/27/16 22:38; Start 07/27/16 at 22:00; Stop 07/28/16 at 21:59; Status DC Sodium Chloride (Iv Sodium Chloride 0.9% 1000ml Bag) 1,000 ml @ 45 mls/hr [id number] IV Last administered on 07/28/16 03:24; Start 07/27/16 at 17:00; Stop 07/28/16 at 10:27; Status DC Acetaminophen 650 mg 650 mg PRN Q6HRS PRN [place] fever Last administered on 03:57; Start 07/27/16 at 16:30; Stop 07/29/16 at 08:33; Status DC Sodium Chloride 1,000 ml @ 427.5 mls/ hr Q2H21M IV Last administered on 19:30; Start 07/27/16 at 19:30; Stop 07/27/16 at 23:30; Status DC Sodium Chloride 220 meq/Sodium Acetate 90 meq/ Potassium Chloride 30 meq/ Potassium Acetate 15 meq/Potassium Phosphate 10 mmol/ Magnesium Sulfate 45 meq/ Multivitamins/ Minerals 10 ml/ Chromium/Copper/ Manganese/Seleni/ Zn 1 ml/Total Parenteral Nutrition/Amino Acids/Dextrose/ Fat Emuls... 1,920 ml @ 80 mls/hr TPN CONT IV Last administered on 07/28/16 21:43; Start 07/28/16 at 22:00; Stop 07/29/16 at 21:59 Micafungin Sodium/ Dextrose (Mycamine) 100 ml @ 100 mls/hr Q24H IV Last administered on 07/29/16 01:28; Start 07/29/16 at 01:00 Lorazepam (Ativan) 0.05 mg PRN Q4HRS PRN IV ANXIETY / AGITATION; Start at 02:30; Stop 07/29/16 at 02:48; Status DC Lorazepam (Ativan) 0.5 mg PRN Q4HRS PRN IV ANXIETY / AGITATION Last administered on 07/29/16 03:18; Start 07/29/16 at 03:00 Acetaminophen (Tylenol) 650 mg PRN Q4HRS PRN [place] MILD PAIN / TEMP; Start at 08:30 Ketorolac Tromethamine (Toradol) 30 mg PRN Q6HRS PRN IV PAIN/FEVER; Start 07/29 at 08:30; Stop 08/03/16 at 08:29 Active Scripts Active Dilaudid (Hydromorphone Hcl) 4 Mg Tablet 4 Mg PO Q6HRS Phenazopyridine Hcl 200 Mg Tablet 200 Mg PO PRN TID PRN FENTANYL 50mcg/hr (Fentanyl) 1 Each Patch.td72 1 Patch TD Q3DAYS Anaspaz (Hyoscyamine Sulfate) 0.125 Mg Tab.rapdis 0.125 Mg PO Q6HRS PRN Cefpodoxime Proxetil 200 Mg Tablet 200 Mg PO BID Sertraline Hcl 50 Mg Tablet 100 Mg PO DAILY 30 Days Protonix (Pantoprazole Sodium) 40 Mg Tablet.dr 1 Tab PO DAILY Zinc Oxide 56.7 Gm Oint...g. 1 Sang TP BID Lidocaine 35.44 Gm Oint...g. 1 Sang TP BID Ondansetron Odt (Ondansetron) 4 Mg Tab.rapdis 8 Mg PO PRN Q8HRS PRN Gas-X (Simethicone) 80 Mg Tab.chew 80 Mg PO PRN QID PRN Reported Lorazepam 0.5 Mg Tablet 0.5 Mg PO PRN BID PRN Vitals/I & O Vital Sign - Last 24 Hours 07/28/16 07/28/16 07/28/16 07/28/16 09:00 10:00 11:00 12:00 Temp 99.4 99.4 Pulse 122 108 102 98 Resp 29 18 20 25 B/P 116/66 80/44 95/44 94/65 Pulse Ox 97 97 97 100 O2 Delivery Room Air Room Air Room Air Room Air 07/28/16 07/28/16 07/28/16 07/28/16 13:00 13:23 14:00 15:00 Temp 100.4 104.1 100.4 104.1 Pulse 102 134 142 Resp 21 30 31 26 B/P 134/80 184/81 181/93 Pulse Ox 100 O2 Delivery Room Air Room Air Room Air Room Air 07/28/16 07/28/16 07/28/16 07/28/16 16:00 17:00 18:00 18:40 Temp 103.9 103.4 103.4 103.9 103.4 103.4 Pulse 136 128 122 Resp 27 25 25 24 B/P 163/82 165/76 124/74 Pulse Ox 98 100 100 O2 Delivery Room Air Room Air Room Air Room Air 07/28/16 07/28/16 07/28/16 07/28/16 19:00 20:00 20:00 21:00 Temp 103.0 104.0 104.2 103.0 104.0 104.2 Pulse 132 130 127 Resp 24 B/P 112/71 119/89 115/73 Pulse Ox 97 99 100 O2 Delivery Room Air Room Air Room Air Room Air 07/28/16 07/28/16 07/28/16 07/29/16 22:00 23:00 23:33 00:00 Temp 103.9 103.8 102.8 103.9 103.8 102.8 Pulse 130 133 133 Resp 30 22 B/P 125/68 144/75 110/62 Pulse Ox 100 99 99 96 O2 Delivery Nasal Cannula Room Air Room Air 07/29/16 07/29/16 07/29/16 07/29/16 00:05 00:15 01:00 02:00 Temp 102.7 103.5 102.7 103.5 Pulse 135 145 Resp 33 B/P 140/69 138/83 Pulse Ox 96 98 98 O2 Delivery Room Air Room Air Room Air Room Air 07/29/16 07/29/16 07/29/16 07/29/16 03:00 04:00 04:08 05:00 Temp 103.7 102.2 103.9 103.7 102.2 103.9 Pulse 148 153 142 Resp 30 28 30 B/P 157/66 150/68 136/71 Pulse Ox 100 100 97 O2 Delivery Room Air Room Air Room Air Room Air 07/29/16 07/29/16 07/29/16 05:56 06:00 06:45 Temp 103.1 103.1 Pulse 139 Resp 38 30 B/P 95/54 Pulse Ox 100 98 O2 Delivery Room Air Room Air Room Air Intake and Output 07/28/16 07/28/16 07/29/16 14:59 22:59 06:59 Intake Total 350 ml 3560 ml Output Total 1105 ml 500 ml Balance -755 ml 3060 ml BENITA LUTZ MD Jul 29, 2016 08:52
[2016-07-29] MEDS: PANTOPRAZOLE IV PUSH 40 MG VIAL. IVP SCH (09:40)
[2016-07-29] MEDS: LIDOCAINE 5% TOPICAL OINTMENT 35GM TUBE. TP SCH ×2 (09:41→21:04)
[2016-07-29] MEDS: KETOROLAC TROMETHAMINE 30 MG/ML SYRINGE. IV PRN ×2 (09:41→18:27)
[2016-07-29] MEDS: ZINC OXIDE 20% TOPICAL OINTMENT 28GM TUBE. TP SCH ×2 (09:42→21:04)
--- NOTE | 2016-07-29 10:02 | PDOC ---
PROGRESS NOTES Assessment Problems Medical Problems: (1) Abdominal pain Status: Acute (2) Enterocutaneous fistula Status: Acute (3) Sepsis Status: Acute (4) Urinary tract infection Status: Acute (5) UTI (urinary tract infection) Status: Acute Metabolic encephalopathy due to sepsis, no evidence of other intrinsic neurological problem. Plan Discussed with daughter No additional neurological investigations needed Will follow with you Subjective none Objective Vital Signs Date Time Temp Pulse Resp B/P Pulse Ox O2 Delivery O2 Flow Rate FiO2 07/29/16 06:45 Room Air 07/29/16 06:00 103.1 139 30 95/54 98 103.1 Intake and Output 07/29/16 07:00 Intake Total 3910 ml Output Total 1605 ml Balance 2305 ml Intake Oral 300 ml IV Total 3610 ml Output Urine Total 1605 ml PHYSICAL EXAM Alert. Tells me her name, "[facility]" PERRL. EOMI. CN: no focal findings. Muscle tone: normal. Muscle strength: moves all extremities DTR: 1+ Plantar reflex: flexor Gait: not examined in bed. Sensory exam: no abnormal findings. No cerebellar signs elicited. Review of Relevant I have reviewed the following items lucila (where applicable) has been applied. Labs Laboratory Tests Test 07/27/16 14:15 07/27/16 20:20 07/28/16 06:25 07/29/16 05:30 Lactic Acid Level 1.3mmol/L (0.4-2.0) Nasal Screen MRSA (PCR) Negative (Negative) Clostridium difficile Toxin (PCR) Negative (Negative) White Blood Count 4.6x10^3/uL (4.0-11.0) 8.7x10^3/uL (4.0-11.0) Red Blood Count 3.80x10^6/uL (3.50-5.40) 3.75x10^6/uL (3.50-5.40) Hemoglobin 9.6g/dL (12.0-15.5) 9.8g/dL (12.0-15.5) Hematocrit 30.1% (36.0-47.0) 30.4% (36.0-47.0) Mean Corpuscular Volume 79fL (79-100) 81fL (79-100) Mean Corpuscular Hemoglobin 25pg (25-35) 26pg (25-35) Mean Corpuscular Hemoglobin Concent 32g/dL (31-37) 32g/dL (31-37) Red Cell Distribution Width 19.7% (11.5-14.5) 19.7% (11.5-14.5) Platelet Count 270x10^3/uL (140-400) 213x10^3/uL (140-400) Neutrophils (%) (Auto) 91% (31-73) 96% (31-73) Lymphocytes (%) (Auto) 6% (24-48) 2% (24-48) Monocytes (%) (Auto) 3% (0-9) 1% (0-9) Eosinophils (%) (Auto) 0% (0-3) 0% (0-3) Basophils (%) (Auto) 1% (0-3) 1% (0-3) Neutrophils # (Auto) 4.2x10^3uL (1.8-7.7) 8.4x10^3uL (1.8-7.7) Lymphocytes # (Auto) 0.3x10^3/uL (1.0-4.8) 0.1x10^3/uL (1.0-4.8) Monocytes # (Auto) 0.2x10^3/uL (0.0-1.1) 0.1x10^3/uL (0.0-1.1) Eosinophils # (Auto) 0.0x10^3/uL (0.0-0.7) 0.0x10^3/uL (0.0-0.7) Basophils # (Auto) 0.0x10^3/uL (0.0-0.2) 0.1x10^3/uL (0.0-0.2) Segmented Neutrophils % 78% (35-66) Band Neutrophils % 11% (0-9) Lymphocytes % 11% (24-48) Platelet Estimate Adequate (ADEQUATE) Sodium Level 137mmol/L (136-145) 137mmol/L (136-145) Potassium Level 3.9mmol/L (3.5-5.1) 4.4mmol/L (3.5-5.1) Chloride Level 104mmol/L (98-107) 106mmol/L (98-107) Carbon Dioxide Level 20mmol/L (21-32) 20mmol/L (21-32) Anion Gap 13 (6-14) 11 (6-14) Blood Urea Nitrogen 13mg/dL (7-20) 14mg/dL (7-20) Creatinine 0.8mg/dL (0.6-1.0) 0.9mg/dL (0.6-1.0) Estimated GFR (Cockcroft-Gault) 88.2 77.0 BUN/Creatinine Ratio 16 (6-20) Glucose Level 116mg/dL (70-99) 119mg/dL (70-99) Calcium Level 8.4mg/dL (8.5-10.1) 8.6mg/dL (8.5-10.1) Phosphorus Level 3.5mg/dL (2.6-4.7) Magnesium Level 2.1mg/dL (1.8-2.4) 2.4mg/dL (1.8-2.4) Total Bilirubin 1.2mg/dL (0.2-1.0) 1.8mg/dL (0.2-1.0) Aspartate Amino Transf (AST/SGOT) 26U/L (15-37) 47U/L (15-37) Alanine Aminotransferase (ALT/SGPT) 15U/L (14-59) 23U/L (14-59) Alkaline Phosphatase 304U/L (46-116) 238U/L (46-116) Total Protein 7.5g/dL (6.4-8.2) 6.7g/dL (6.4-8.2) Albumin 2.0g/dL (3.4-5.0) 1.9g/dL (3.4-5.0) Albumin/Globulin Ratio 0.4 (1.0-1.7) Direct Bilirubin 1.3mg/dL (0.0-0.2) Laboratory Tests Test 07/29/16 05:30 White Blood Count 8.7x10^3/uL (4.0-11.0) Red Blood Count 3.75x10^6/uL (3.50-5.40) Hemoglobin 9.8g/dL (12.0-15.5) Hematocrit 30.4% (36.0-47.0) Mean Corpuscular Volume 81fL (79-100) Mean Corpuscular Hemoglobin 26pg (25-35) Mean Corpuscular Hemoglobin Concent 32g/dL (31-37) Red Cell Distribution Width 19.7% (11.5-14.5) Platelet Count 213x10^3/uL (140-400) Neutrophils (%) (Auto) 96% (31-73) Lymphocytes (%) (Auto) 2% (24-48) Monocytes (%) (Auto) 1% (0-9) Eosinophils (%) (Auto) 0% (0-3) Basophils (%) (Auto) 1% (0-3) Neutrophils # (Auto) 8.4x10^3uL (1.8-7.7) Lymphocytes # (Auto) 0.1x10^3/uL (1.0-4.8) Monocytes # (Auto) 0.1x10^3/uL (0.0-1.1) Eosinophils # (Auto) 0.0x10^3/uL (0.0-0.7) Basophils # (Auto) 0.1x10^3/uL (0.0-0.2) Sodium Level 137mmol/L (136-145) Potassium Level 4.4mmol/L (3.5-5.1) Chloride Level 106mmol/L (98-107) Carbon Dioxide Level 20mmol/L (21-32) Anion Gap 11 (6-14) Blood Urea Nitrogen 14mg/dL (7-20) Creatinine 0.9mg/dL (0.6-1.0) Estimated GFR (Cockcroft-Gault) 77.0 Glucose Level 119mg/dL (70-99) Calcium Level 8.6mg/dL (8.5-10.1) Magnesium Level 2.4mg/dL (1.8-2.4) Total Bilirubin 1.8mg/dL (0.2-1.0) Direct Bilirubin 1.3mg/dL (0.0-0.2) Aspartate Amino Transf (AST/SGOT) 47U/L (15-37) Alanine Aminotransferase (ALT/SGPT) 23U/L (14-59) Alkaline Phosphatase 238U/L (46-116) Total Protein 6.7g/dL (6.4-8.2) Albumin 1.9g/dL (3.4-5.0) Microbiology 07/27/16 Blood Culture - Preliminary, Resulted NO GROWTH AFTER 1 DAY 07/15/16 Urine Culture - Final, Complete 07/15/16 Urine Culture Result 1 (ROYA) - Final, Complete 07/15/16 Urine Culture Result 2 (ROYA) - Final, Complete 07/15/16 Antimicrobic Susceptibility - Final, Complete Medications Current Medications Piperacillin Sod/ Tazobactam Sod/ Sodium Chloride (Zosyn/Iv Sodium Chloride 0.9 % 100ml) 100 ml @ 200 mls/hr 1X ONCE IV Last administered on 07/15/16 22:56; Start 07/15/16 at 22:00; Stop 07/15/16 at 22:29; Status DC Fentanyl Citrate 50 mcg 50 mcg PRN Q15MIN PRN IV PAIN GREATER THAN 3/10 Last administered on 07/16/16 00:30; Start 07/15/16 at 21:45; Stop 07/16/16 at 02:00; Status DC Sodium Chloride 1,000 ml @ 1,000 mls/hr 1X ONCE IV Last administered on 21:59; Start 07/15/16 at 22:00; Stop 07/15/16 at 22:59; Status DC Sodium Chloride (Iv Sodium Chloride 0.9% 500ml Bag) 500 ml @ 500 mls/hr 1X ONCE IV Last administered on 07/15/16 22:00; Start 07/15/16 at 22:00; Stop at 22:59; Status DC Ondansetron HCl (Zofran) 4 mg PRN Q8HRS PRN IV NAUSEA/VOMITING; Start 07/15/16 at 23:30; Stop 07/16/16 at 08:52; Status DC Fentanyl Citrate 50 mcg 50 mcg PRN Q2HR PRN IV SEVERE PAIN Last administered on 07/16/16 08:10; Start 07/15/16 at 23:30; Stop 07/16/16 at 08:52; Status DC Sodium Chloride (Iv Sodium Chloride 0.9% 1000ml Bag) 1,000 ml @ 150 mls/hr Q6H40M IV Last administered on 07/15/16 02:00; Start 07/15/16 at 23:45; Stop 07/16/16 at 08:52; Status DC Acetaminophen (Tylenol) 650 mg PRN Q4HRS PRN PO FEVER; Start 07/15/16 at 23:30; Stop 07/16/16 at 23:29; Status DC Info (Do NOT chart on this placeholder) 1 each PRN DAILY PRN MC NEEDS VERIFICATION; Start 07/16/16 at 03:00; Status Cancel Acetaminophen 650 mg 650 mg PRN Q4HRS PRN PO MILD PAIN / TEMP Last administered on 07/28/16 07:42; Start 07/16/16 at 08:45; Stop 07/29/16 at 08:33 ; Status DC Piperacillin Sod/ Tazobactam Sod 3.375 gm/Sodium Chloride 50 ml @ 100 mls/hr Q6HRS IV Last administered on 07/18/16 05:50; Start 07/16/16 at 10:00; Stop 07/18 at 13:28; Status DC Linezolid (Zyvox Premix) 300 ml @ 300 mls/hr Q12HR IV Last administered on 07/18 08:34; Start 07/16/16 at 10:00; Stop 07/18/16 at 13:28; Status DC Hydromorphone HCl (Dilaudid) 2 mg PRN Q4HRS PRN IV PAIN Last administered on 23:33; Start 07/16/16 at 08:45 Hydromorphone HCl (Dilaudid) 4 mg PRN Q4HRS PRN IV PAIN Last administered on 05:56; Start 07/16/16 at 08:45 Pantoprazole Sodium (Protonix) 40 mg DAILYAC PO Last administered on 07/27/16 11:11; Start 07/16/16 at 09:30; Stop 07/29/16 at 08:44; Status DC Hyoscyamine (Anaspaz) 0.125 mg Q6HRS PO Last administered on 07/20/16 05:20; Start 07/16/16 at 12:00; Stop 07/20/16 at 08:58; Status DC Phenazopyridine HCl (Pyridium) 200 mg TID PO Last administered on 07/20/16 08: 25; Start 07/16/16 at 09:30; Stop 07/20/16 at 08:58; Status DC Lorazepam (Ativan) 0.5 mg PRN BID PRN PO ANXIETY / AGITATION Last administered on 07/29/16 02:16; Start 07/16/16 at 08:45 Simethicone (Gas-X) 80 mg PRN Q4HRS PRN PO GAS / BLOATING Last administered on 07/24/16 22:30; Start 07/16/16 at 08:45 Zolpidem Tartrate 5 mg 5 mg PRN QHS PRN PO INSOMNIA Last administered on 23:14; Start 07/16/16 at 08:45 Potassium Chloride/Dextrose/ Sod Cl 1,000 ml @ 80 mls/hr [id number] IV Last administered on 07/16/16 10:54; Start 07/16/16 at 09:30; Stop 07/16/16 at 21:59; Status DC Fluconazole/ Sodium Chloride (Diflucan 200mg/ 100ml Premix) 100 ml @ 100 mls/ hr Q24H IV Last administered on 07/18/16 11:43; Start 07/16/16 at 11:00; Stop at 13:28; Status DC Info 1 each 1 each PRN DAILY PRN MC SEE COMMENTS Last administered on 10:58; Start 07/16/16 at 10:00 Sodium Chloride 220 meq/Sodium Acetate 90 meq/ Potassium Chloride 50 meq/ Potassium Acetate 15 meq/Potassium Phosphate 10 mmol/ Magnesium Sulfate 50 meq/ Calcium Gluconate 6 meq/ Multivitamins/ Minerals 10 ml/ Chromium/Copper/ Manganese/Seleni/ Zn 1 ml/Total Parenteral Nutrition/Amino Acids/Dextro... 1, 920 ml @ 80 mls/hr TPN CONT IV ; Start 07/16/16 at 22:00; Stop 07/16/16 at 22:00 ; Status DC Sodium Chloride/ Sodium Acetate/ Potassium Chloride/ Potassium Acetate/ Potassium Phosphate/ Magnesium Sulfate/ Calcium Gluconate/ Multivitamins/ Minerals/Chromium/ Copper/Manganese/ Seleni/Zn/Total Parenteral Nutrition/Amino Acids/Dextrose/ Fat Emulsion Intravenous (Sodium Chlori... 1,820 ml @ 75.833 mls/ hr TPN CONT IV Last administered on 07/16/16 21:03; Start 07/16/16 at 22: 00; Stop 07/17/16 at 21:59; Status DC Ondansetron HCl (Zofran) 4 mg PRN Q6HRS PRN IV NAUSEA/VOMITING Last administered on 07/21/16 08:48; Start 07/16/16 at 17:15 Diphenhydramine HCl (Benadryl) 25 mg PRN Q6HRS PRN PO ITCHING Last administered on 07/25/16 23:38; Start 07/16/16 at 17:45 Lidocaine (Xylocaine) 1 sang BID TP Last administered on 07/29/16 09:41; Start 07/17/16 at 09:00 Zinc Oxide 1 sang 1 sang BID TP Last administered on 07/29/16 09:42; Start at 09:30 Sodium Chloride/ Sodium Acetate/ Potassium Chloride/ Potassium Acetate/ Potassium Phosphate/ Magnesium Sulfate/ Calcium Gluconate/ Multivitamins/ Minerals/Chromium/ Copper/Manganese/ Seleni/Zn/Total Parenteral Nutrition/Amino Acids/Dextrose/ Fat Emulsion Intravenous (Sodium Chlori... 1,920 ml @ 80 mls/ hr TPN CONT IV Last administered on 07/17/16 22:13; Start 07/17/16 at 22:00; Stop 07/18/16 at 21:59; Status DC Furosemide 40 mg 40 mg 1X ONCE IVP Last administered on 07/18/16 11:43; Start 07/18/16 at 11:00; Stop 07/18/16 at 11:07; Status DC Sodium Chloride 220 meq/Sodium Acetate 90 meq/ Potassium Chloride 50 meq/ Potassium Acetate 15 meq/Potassium Phosphate 10 mmol/ Magnesium Sulfate 50 meq/ Calcium Gluconate 3 meq/ Multivitamins/ Minerals 10 ml/ Chromium/Copper/ Manganese/Seleni/ Zn 1 ml/Total Parenteral Nutrition/Amino Acids/Dextro... 1, 920 ml @ 80 mls/hr TPN CONT IV Last administered on 07/19/16 00:03; Start 07/18/16 at 22:00; Stop 07/19/16 at 21:59; Status DC Meropenem 1 gm/ Sodium Chloride 100 ml @ 200 mls/hr Q8HRS IV Last administered on 07/20/16 05:21; Start 07/18/16 at 14:00; Stop 07/20/16 at 11:25; Status DC Micafungin Sodium 100 mg/Dextrose 100 ml @ 100 mls/hr Q24H IV Last administered on 07/19/16 15:05; Start 07/18/16 at 14:00; Stop 07/20/16 at 11:25; Status DC Daptomycin/Sodium Chloride (Cubicin/Iv Sodium Chloride 0.9% 50ml) 50 ml @ 100 mls/hr Q24H IV Last administered on 07/19/16 16:56; Start 07/18/16 at 15:00; Stop 07/20/16 at 11:25; Status DC Alteplase, Recombinant (Cathflo) 2 mg 1X ONCE INT CAT Last administered on 07/19 06:24; Start 07/19/16 at 07:00; Stop 07/19/16 at 07:01; Status DC Gentamicin Sulfate 1 each 1 each PRN DAILY PRN MC SEE COMMENTS Last administered on 07/25/16 15:31; Start 07/19/16 at 12:15; Stop 07/25/16 at 16:14 ; Status DC Gentamicin Sulfate/Sodium Chloride (Iv Sodium Chloride 0.9% 100ml) 106.75 ml @ 106.75 mls/hr Q24H IV Last administered on 07/25/16 15:31; Start 07/19/16 at 13 :00; Stop 07/25/16 at 16:12; Status DC Gentamicin Sulfate 1 each 1 each 1X ONCE MC Last administered on 07/19/16 23: 00; Start 07/19/16 at 23:00; Stop 07/19/16 at 23:01; Status DC Sodium Chloride/ Sodium Acetate/ Potassium Chloride/ Potassium Acetate/ Potassium Phosphate/ Magnesium Sulfate/ Calcium Gluconate/ Multivitamins/ Minerals/Chromium/ Copper/Manganese/ Seleni/Zn/Total Parenteral Nutrition/Amino Acids/Dextrose/ Fat Emulsion Intravenous (Sodium Chlori... 1,920 ml @ 80 mls/ hr TPN CONT IV Last administered on 07/19/16 20:51; Start 07/19/16 at 22:00; Stop 07/20/16 at 21:59; Status DC Hyoscyamine (Anaspaz) 0.125 mg PRN Q6HRS PRN PO BLADDER SPASM; Start 07/20/16 at 09:00 Phenazopyridine HCl 200 mg 200 mg PRN TID PRN PO BLADDER SPASM Last administered on 07/21/16 20:14; Start 07/20/16 at 09:00 Linezolid 300 ml @ 300 mls/hr Q12HR IV Last administered on 07/25/16 09:02; Start 07/20/16 at 12:00; Stop 07/25/16 at 16:12; Status DC Sodium Chloride 220 meq/Sodium Acetate 90 meq/ Potassium Chloride 50 meq/ Potassium Acetate 15 meq/Potassium Phosphate 10 mmol/ Magnesium Sulfate 50 meq/ Calcium Gluconate 3 meq/ Multivitamins/ Minerals 10 ml/ Chromium/Copper/ Manganese/Seleni/ Zn 1 ml/Total Parenteral Nutrition/Amino Acids/Dextro... 1, 920 ml @ 80 mls/hr TPN CONT IV Last administered on 07/20/16 21:30; Start 07/20/16 at 22:00; Stop 07/21/16 at 21:59; Status DC Sodium Chloride/ Sodium Acetate/ Potassium Chloride/ Potassium Acetate/ Potassium Phosphate/ Magnesium Sulfate/ Multivitamins/ Minerals/Chromium/ Copper /Manganese/ Seleni/Zn/Total Parenteral Nutrition/Amino Acids/Dextrose/ Fat Emulsion Intravenous (Sodium Chloride/ Potass... 1,920 ml @ 80 mls/hr TPN CONT IV Last administered on 07/21/16 22:05; Start 07/21/16 at 22:00; Stop at 21:59; Status DC Alteplase, Recombinant 2 mg 2 mg PRN DAILY PRN INT CAT INFLAMMATION Last administered on 07/27/16 11:31; Start 07/21/16 at 15:00 Sodium Chloride 220 meq/Sodium Acetate 90 meq/ Potassium Chloride 50 meq/ Potassium Acetate 15 meq/Potassium Phosphate 10 mmol/ Magnesium Sulfate 50 meq/ Multivitamins/ Minerals 10 ml/ Chromium/Copper/ Manganese/Seleni/ Zn 1 ml/Total Parenteral Nutrition/Amino Acids/Dextrose/ Fat Emuls... 1,920 ml @ 80 mls/hr TPN CONT IV Last administered on 07/22/16 20:53; Start 07/22/16 at 22:00; Stop 07/23/16 at 21:59; Status DC Sodium Chloride/ Sodium Acetate/ Potassium Chloride/ Potassium Acetate/ Potassium Phosphate/ Magnesium Sulfate/ Multivitamins/ Minerals/Chromium/ Copper /Manganese/ Seleni/Zn/Total Parenteral Nutrition/Amino Acids/Dextrose/ Fat Emulsion Intravenous (Sodium Chloride/ Potass... 1,920 ml @ 80 mls/hr TPN CONT IV Last administered on 07/23/16 21:16; Start 07/23/16 at 22:00; Stop 07/24 at 21:59; Status DC Gentamicin Sulfate 1 each 1 each 1X ONCE MC ; Start 07/23/16 at 22:00; Stop 07/23 at 22:01; Status Cancel Sodium Chloride/ Sodium Acetate/ Potassium Chloride/ Potassium Acetate/ Potassium Phosphate/ Magnesium Sulfate/ Multivitamins/ Minerals/Chromium/ Copper /Manganese/ Seleni/Zn/Total Parenteral Nutrition/Amino Acids/Dextrose/ Fat Emulsion Intravenous (Sodium Chloride/ Potass... 1,920 ml @ 80 mls/hr TPN CONT IV Last administered on 07/24/16 21:15; Start 07/24/16 at 22:00; Stop 04/30 at 21:59; Status DC Gentamicin Sulfate 1 each 1X ONCE MC ; Start 07/25/16 at 12:30; Stop 07/25/16 at 12:31; Status Cancel Amlodipine Besylate 5 mg 5 mg DAILY PO Last administered on 07/27/16 11:12; Start 07/25/16 at 12:00; Stop 07/29/16 at 08:44; Status DC Sodium Chloride 220 meq/Sodium Acetate 90 meq/ Potassium Chloride 30 meq/ Potassium Acetate 15 meq/Potassium Phosphate 10 mmol/ Magnesium Sulfate 50 meq/ Multivitamins/ Minerals 10 ml/ Chromium/Copper/ Manganese/Seleni/ Zn 1 ml/Total Parenteral Nutrition/Amino Acids/Dextrose/ Fat Emuls... 1,920 ml @ 80 mls/hr TPN CONT IV Last administered on 07/25/16 22:25; Start 07/25/16 at 22:00; Stop 07/26/16 at 21:59; Status DC Sodium Chloride/ Sodium Acetate/ Potassium Chloride/ Potassium Acetate/ Potassium Phosphate/ Magnesium Sulfate/ Multivitamins/ Minerals/Chromium/ Copper /Manganese/ Seleni/Zn/Total Parenteral Nutrition/Amino Acids/Dextrose/ Fat Emulsion Intravenous (Sodium Chloride/ Potass... 1,920 ml @ 80 mls/hr TPN CONT IV Last administered on 07/26/16 23:16; Start 07/26/16 at 22:00; Stop at 21:59; Status DC Furosemide 20 mg 20 mg 1X ONCE IVP Last administered on 07/27/16 11:31; Start 07/27/16 at 09:00; Stop 07/27/16 at 09:01; Status DC Daptomycin 340 mg/ Sodium Chloride 50 ml @ 100 mls/hr Q24H IV Last administered on 07/28/16 13:31; Start 07/27/16 at 13:00 Piperacillin Sod/ Tazobactam Sod 3.375 gm/Sodium Chloride 50 ml @ 100 mls/hr Q6HRS IV Last administered on 07/29/16 05:51; Start 07/27/16 at 12:30 Fluconazole/ Sodium Chloride 100 ml @ 100 mls/hr Q24H IV Last administered on 07/28/16 13:32; Start 07/27/16 at 13:00; Stop 07/29/16 at 00:53; Status DC Sodium Chloride 1,000 ml @ 1,000 mls/hr 1X ONCE IV Last administered on 12:34; Start 07/27/16 at 12:30; Stop 07/27/16 at 13:29; Status DC Sodium Chloride 220 meq/Sodium Acetate 90 meq/ Potassium Chloride 30 meq/ Potassium Acetate 15 meq/Potassium Phosphate 10 mmol/ Magnesium Sulfate 45 meq/ Multivitamins/ Minerals 10 ml/ Chromium/Copper/ Manganese/Seleni/ Zn 1 ml/Total Parenteral Nutrition/Amino Acids/Dextrose/ Fat Emuls... 1,920 ml @ 80 mls/hr TPN CONT IV Last administered on 07/27/16 22:38; Start 07/27/16 at 22:00; Stop 07/28/16 at 21:59; Status DC Sodium Chloride (Iv Sodium Chloride 0.9% 1000ml Bag) 1,000 ml @ 45 mls/hr [id number] IV Last administered on 07/28/16 03:24; Start 07/27/16 at 17:00; Stop 07/28/16 at 10:27; Status DC Acetaminophen 650 mg 650 mg PRN Q6HRS PRN GA fever Last administered on 03:57; Start 07/27/16 at 16:30; Stop 07/29/16 at 08:33; Status DC Sodium Chloride 1,000 ml @ 427.5 mls/ hr Q2H21M IV Last administered on 19:30; Start 07/27/16 at 19:30; Stop 07/27/16 at 23:30; Status DC Sodium Chloride 220 meq/Sodium Acetate 90 meq/ Potassium Chloride 30 meq/ Potassium Acetate 15 meq/Potassium Phosphate 10 mmol/ Magnesium Sulfate 45 meq/ Multivitamins/ Minerals 10 ml/ Chromium/Copper/ Manganese/Seleni/ Zn 1 ml/Total Parenteral Nutrition/Amino Acids/Dextrose/ Fat Emuls... 1,920 ml @ 80 mls/hr TPN CONT IV Last administered on 07/28/16 21:43; Start 07/28/16 at 22:00; Stop 07/29/16 at 21:59 Micafungin Sodium/ Dextrose (Mycamine) 100 ml @ 100 mls/hr Q24H IV Last administered on 07/29/16 01:28; Start 07/29/16 at 01:00 Lorazepam (Ativan) 0.05 mg PRN Q4HRS PRN IV ANXIETY / AGITATION; Start at 02:30; Stop 07/29/16 at 02:48; Status DC Lorazepam (Ativan) 0.5 mg PRN Q4HRS PRN IV ANXIETY / AGITATION Last administered on 07/29/16 03:18; Start 07/29/16 at 03:00 Acetaminophen (Tylenol) 650 mg PRN Q4HRS PRN GA MILD PAIN / TEMP; Start at 08:30 Ketorolac Tromethamine (Toradol) 30 mg PRN Q6HRS PRN IV PAIN/FEVER Last administered on 07/29/16 09:41; Start 07/29/16 at 08:30; Stop 08/03/16 at 08:29 Pantoprazole Sodium 40 mg 40 mg DAILYAC IVP Last administered on 07/29/16 09: 40; Start 07/29/16 at 09:00 Sodium Chloride (Iv Sodium Chloride 0.9% 1000ml Bag) 1,000 ml @ 45 mls/hr [id number] IV ; Start 07/29/16 at 08:45 Active Scripts Active Dilaudid (Hydromorphone Hcl) 4 Mg Tablet 4 Mg PO Q6HRS Phenazopyridine Hcl 200 Mg Tablet 200 Mg PO PRN TID PRN FENTANYL 50mcg/hr (Fentanyl) 1 Each Patch.td72 1 Patch TD Q3DAYS Anaspaz (Hyoscyamine Sulfate) 0.125 Mg Tab.rapdis 0.125 Mg PO Q6HRS PRN Cefpodoxime Proxetil 200 Mg Tablet 200 Mg PO BID Sertraline Hcl 50 Mg Tablet 100 Mg PO DAILY 30 Days Protonix (Pantoprazole Sodium) 40 Mg Tablet.dr 1 Tab PO DAILY Zinc Oxide 56.7 Gm Oint...g. 1 Sang TP BID Lidocaine 35.44 Gm Oint...g. 1 Sang TP BID Ondansetron Odt (Ondansetron) 4 Mg Tab.rapdis 8 Mg PO PRN Q8HRS PRN Gas-X (Simethicone) 80 Mg Tab.chew 80 Mg PO PRN QID PRN Reported Lorazepam 0.5 Mg Tablet 0.5 Mg PO PRN BID PRN Vitals/I & O Vital Sign - Last 24 Hours 07/28/16 07/28/16 07/28/16 07/28/16 10:00 11:00 12:00 13:00 Temp 99.4 100.4 99.4 100.4 Pulse 108 102 98 102 Resp 18 21 B/P 80/44 95/44 94/65 134/80 Pulse Ox 97 97 100 O2 Delivery Room Air Room Air Room Air Room Air 07/28/16 07/28/16 07/28/16 07/28/16 13:23 14:00 15:00 16:00 Temp 104.1 103.9 104.1 103.9 Pulse 134 142 136 Resp 30 31 26 27 B/P 184/81 181/93 163/82 Pulse Ox 100 O2 Delivery Room Air Room Air Room Air Room Air 07/28/16 07/28/16 07/28/16 07/28/16 17:00 18:00 18:40 19:00 Temp 103.4 103.4 103.0 103.4 103.4 103.0 Pulse 128 122 132 Resp 25 25 24 26 B/P 165/76 124/74 112/71 Pulse Ox 98 100 100 97 O2 Delivery Room Air Room Air Room Air Room Air 07/28/16 07/28/16 07/28/16 07/28/16 20:00 20:00 21:00 22:00 Temp 104.0 104.2 103.9 104.0 104.2 103.9 Pulse 130 127 130 Resp 25 24 26 B/P 119/89 115/73 125/68 Pulse Ox 99 100 100 O2 Delivery Room Air Room Air Room Air Nasal Cannula 07/28/16 07/28/16 07/29/16 07/29/16 23:00 23:33 00:00 00:05 Temp 103.8 102.8 103.8 102.8 Pulse 133 133 Resp 30 30 22 22 B/P 144/75 110/62 Pulse Ox 99 99 96 96 O2 Delivery Room Air Room Air Room Air 07/29/16 07/29/16 07/29/16 07/29/16 00:15 01:00 02:00 03:00 Temp 102.7 103.5 103.7 102.7 103.5 103.7 Pulse 135 145 148 Resp 26 33 30 B/P 140/69 138/83 157/66 Pulse Ox 98 98 100 O2 Delivery Room Air Room Air Room Air Room Air 07/29/16 07/29/16 07/29/16 07/29/16 04:00 04:08 05:00 05:56 Temp 102.2 103.9 102.2 103.9 Pulse 153 142 Resp 28 30 38 B/P 150/68 136/71 Pulse Ox 100 97 100 O2 Delivery Room Air Room Air Room Air Room Air 07/29/16 07/29/16 06:00 06:45 Temp 103.1 103.1 Pulse 139 Resp 30 B/P 95/54 Pulse Ox 98 O2 Delivery Room Air Room Air Intake and Output 07/28/16 07/28/16 07/29/16 15:00 23:00 07:00 Intake Total 350 ml 3560 ml Output Total 1180 ml 425 ml Balance -830 ml 3135 ml LISSA ANTOINE MD Jul 29, 2016 10:02
[2016-07-29] MEDS: IV NORMAL SALINE 1000ML BAG 1,000 ML IV SCH (10:40)
[2016-07-29 11:34] LABS: PLT ESTIMATE ADEQUATE (ADEQUATE)
[2016-07-29 11:36] LABS: ANISOCYTOSIS SLIGHT; POLYCHROMASIA SLIGHT
[2016-07-29] MEDS: TPN PER PHARMACY MC PRN (12:31)
[2016-07-29] MEDS ORDERED: LIDOCAINE 1% / SOD BICARB 8.4% 20 ML VIAL. IJ ONE (13:13)
[2016-07-29] MEDS ORDERED: LIDOCAINE 1%/EPI 1:100,000 20 ML VIAL. ONE (13:22)
[2016-07-29] MEDS ORDERED: FENTANYL PF 250 MCG/5 ML VIAL. ONE (13:32)
[2016-07-29] MEDS ORDERED: MIDAZOLAM HCL/PF 5 MG/5 ML VIAL ONE (13:32)
[2016-07-29] MEDS ORDERED: FENTANYL PF 250 MCG/5 ML VIAL. IV ONE (13:45)
[2016-07-29] MEDS ORDERED: LIDOCAINE 1%/EPI 1:100,000 20 ML VIAL. IJ ONE (13:45)
[2016-07-29] MEDS ORDERED: MIDAZOLAM HCL/PF 5 MG/5 ML VIAL IV ONE (13:45)
--- NOTE | 2016-07-29 15:01 | PDOC ---
MODERATE SEDATION ASSESSMENT RISKS/ALTERNATIVES Risks/Alternatives Risks and alternatives of this type of sedation and procedure discussed with: RISK/ALTERNATIVES: Sig. Other (Daughter--DPOA) H & P ON CHART H & P H & P on chart and reviewed for co-morbid conditions and appropriate labs. H&P ON CHART: Yes STATUS PREG STATUS ASSESSED: N/A MEDS/ALLERGIES REVIEWED Meds/Allergies Reviewed Medications and Allergies including time and route of recently administered narcotics and sedatives. MEDS/ALLERGIES REVIEWED: Yes ASA RATING ASA RATING: III AIRWAY ASSESSMENT Airway Assessment Airway patency, oral function limitations, presence of caps, crowns, dentures, partials, and ability to extend neck assessed. AIRWAY ASSESSMENT: Yes MALLAMPATI SCORE MALLAMPATI SCORE: III PRE-SEDATION ASSESSMENT PRE-SEDATION ASSESSMENT: Yes LULA SKINNER MD Jul 29, 2016 15:00
[2016-07-29] MEDS: DAPTOMYCIN IV SCH (15:05)
[2016-07-29] MEDS: NORMAL SALINE IV SCH (15:05)
--- NOTE | 2016-07-29 15:09 | PDOC ---
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 Now with fever, chills, confusion,sepsis. Possibly infected indwelling rt IJ tunneled Power Line. Post-Procedure Diagnosis Post-Procedure Diagnosis Same Procedure Performed Procedure Performed Conversion from tunneled Power line to non-tunneled CV access----same rt IJ venous access---no other available patent CV access. Type of Anesthesia Type of Anesthesia Local + Mod sedation Estimated Blood Loss EBL: Minimal Specimens Specimans 5F 2L 20cm tunneled Power Line removed---tip to micro for C&S Drain/Tubes Drains/Tubes New 5F 2L 15cm non-tunneled Power Picc ---same Rt IJ venostomy tract Condition of Patient Condition of Patient No change. Confused. No apparent complication. Disposition Disposition From IR return to ICU. OK to use new centrally inserted non-tunneled Power Picc. F/u with Dr Cisnreos and Dr Suggs. Full report to follow. LULA SKINNER MD Jul 29, 2016 15:09
--- NOTE | 2016-07-29 17:44 | RAD ---
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 Her indwelling right IJ tunneled power line is possibly infected. Removal of this tunneled power line, with placement of a non-tunneled central venous access (for TPN and abx) has been requested by infectious disease. Fluoroscopy time: 1.8 minutes Kerma-area Product: 3 Gycm2 Anesthesia: 57 minutes moderate sedation was provided utilizing a total of 1 mg Versed and 50 mcg fentanyl, IV. The patient was appropriately monitored by a qualified independent observer throughout the time of moderate sedation. Antibiotic: The patient is receiving scheduled antibiotics and antifungals. No additional prophylactic antibiotic was considered indicated. Procedure: Informed consent was obtained from the patient's daughter, who has DURABLE POWER OF LABEL REWINDER. She was placed supine on the angiography table. Right neck and upper chest were prepped and draped in the usual sterile fashion. Moderate sedation was provided with IV Versed and fentanyl. Using aseptic technique, and local anesthesia, a small supraclavicular skin incision was made overlying the patient's indwelling right IJ tunneled power line. Subsequently, utilizing a combination of blunt and sharp dissection, the underlying power line was exposed, was clamped, and was divided. The distal, clamped segment of the power line was exchanged over a 0.018 inch guidewire for a 5 Maltese peel-away sheath. A 5 Maltese dual lumen power PICC was trimmed to 15 cm in length, was advanced centrally through the peel-away sheath, and was positioned with its tip at the level of upper right atrium utilizing fluoroscopic guidance. Satisfactory position of the power PICC was confirmed with a fluoroscopic spot image. The PICC was demonstrated to flush and aspirate normally and was secured at the right supraclavicular exit site utilizing suture and sterile dressing. Attention was then turned to the residual, tunneled proximal power line segment. Using aseptic technique and local anesthesia, a small right upper chest skin incision was made overlying retention cuff of the power line. Subsequently, utilizing a combination of blunt and sharp dissection, the retention cuff was freed from surrounding soft tissues, allowing removal of the proximal powerline catheter segment from its subcutaneous tunnel. The small chest incision was then closed with 2-0 Vicryl, 4-0 Vicryl, Steri-Strips, and sterile dressing. Impression: 1. Successful, uneventful removal of right IJ tunneled power line, as described. 2. Successful, uneventful fluoro guided placement of a new non-tunneled power PICC, centrally inserted through the pre-existing right IJ power line venostomy tract, as described. This new centrally inserted non-tunneled power PICC lies in good position, and is satisfactory to use for blood draws and infusions.
[2016-07-29] MEDS ORDERED: DEXTROSE 70% IV SCH ×11 (22:00)
[2016-07-29] MEDS ORDERED: [UNRECOGNIZED DRUG - OTHER] IV SCH ×11 (22:00)
[2016-07-29] MEDS ORDERED: TOTAL PARENTERAL NUTRITION IV SCH ×11 (22:00)
[2016-07-29] MEDS ORDERED: AMINO ACIDS IV SCH ×11 (22:00)
[2016-07-30] VITALS (41 sets, daily range): BP systolic 72–145; BP diastolic 30–64
[2016-07-30] MEDS: MICAFUNGIN 100 MG in IV DEXTROSE 5% 100 ML IV SCH (00:47)
[2016-07-30] MEDS: KETOROLAC TROMETHAMINE 30 MG/ML SYRINGE. IV PRN (00:50)
[2016-07-30] MEDS: HYDROMORPHONE 2 MG/ML VIAL. IV PRN ×2 (03:11→09:23)
[2016-07-30] MEDS: PIPERACILLIN/TAZOBACTAM 3.375 GM in IV NORMAL SALINE 50ML 50 ML IV SCH (05:30)
[2016-07-30 07:09] LABS: CALCIUM 8.1 mg/dL (8.5-10.1); CREATININE 1.7 mg/dL (0.6-1.0); POTASSIUM 3.8 mmol/L (3.5-5.1)
[2016-07-30 07:17] LABS: BASO % 1 % (0-3); EOS % 0 % (0-3); HEMATOCRIT 28.8 % (36.0-47.0); HEMOGLOBIN 9.3 g/dL (12.0-15.5); LYMPH # 0.1 x10^3/uL (1.0-4.8); LYMPH % 3 % (24-48); MEAN CORPUSCULAR HEMOGLOBIN 27 pg (25-35); MEAN CORPUSCULAR HGB CONC 32 g/dL (31-37); MEAN CORPUSCULAR VOLUME 83 fL (79-100); MONO % 2 % (0-9); NEUT % 93 % (31-73); PLATELET COUNT 107 x10^3/uL (140-400); RED BLOOD COUNT 3.49 x10^6/uL (3.50-5.40); RED CELL DISTRIBUTION WIDTH 20.3 % (11.5-14.5)
--- NOTE | 2016-07-30 07:24 | PDOC ---
Infectious Disease Note Subjective Subjective feeling better ROS ROS GEN: Denies fevers, chills, sweats HEENT: Denies blurred vision, sore throat CV: Denies chest pain RESP: Denies shortness of air, cough GI: Denies n/v/d Vital Sign Vital Signs Vital Signs Date Time Temp Pulse Resp B/P Pulse Ox O2 Delivery O2 Flow Rate FiO2 07/30/16 06:00 103 20 85/52 93 Nasal Cannula 2.0 07/30/16 04:00 97.2 97.2 Physical Exam PHYSICAL EXAM GENERAL: NAD, Alert HEENT: PERRL, OC/OP NECK: Supple, no JVD, no LN LUNGS: Clear HEART: S1S2, no gallop, no murmur ABD: Soft, NT, no organomegaly, no rebound,, EC fistula EXT: No edema, no cyanosis PRINT CUTTER: Alert, oriented x 3, no focal neurologic deficit SKIN: No rash IV: ok Labs Lab Laboratory Tests Test 07/30/16 06:55 Sodium Level 142mmol/L (136-145) Potassium Level 3.8mmol/L (3.5-5.1) Chloride Level 111mmol/L (98-107) Carbon Dioxide Level 16mmol/L (21-32) Anion Gap 15 (6-14) Blood Urea Nitrogen 32mg/dL (7-20) Creatinine 1.7mg/dL (0.6-1.0) Estimated GFR (Cockcroft-Gault) 37.0 Glucose Level 116mg/dL (70-99) Calcium Level 8.1mg/dL (8.5-10.1) Micro BC yeast Objective Assessment Fever and chills - Acute Anemia - s/p PRBCs Urine MDR Enterobacter and Amp res Enterococcus 2/1 EC fistula Enterovesicular fistula Abdominal excoriation Fungemia ARF Plan Plan of Care cont micafungin . d/c dapto and zosyn supportive care d/w JOSSY Greene MD Jul 30, 2016 07:24
[2016-07-30] MEDS: IV NORMAL SALINE 1000ML BAG 1,000 ML IV SCH (08:39)
[2016-07-30] MEDS: LIDOCAINE 5% TOPICAL OINTMENT 35GM TUBE. TP SCH ×2 (08:40→21:23)
[2016-07-30] MEDS: ZINC OXIDE 20% TOPICAL OINTMENT 28GM TUBE. TP SCH ×2 (08:40→21:23)
[2016-07-30] MEDS: PANTOPRAZOLE IV PUSH 40 MG VIAL. IVP SCH (08:40)
[2016-07-30] MEDS: TPN PER PHARMACY MC PRN ×2 (09:04→09:27)
[2016-07-30 11:10] LABS: HCO3 ABG 15 mmol/L (21-28); PCO2 ABG 37 mmHg (35-46); PH ABG 7.23 (7.35-7.45); PO2 ABG 65 mmHg (65-108); SAT O2 ABG 88 % (92-99)
[2016-07-30] MEDS ORDERED: FUROSEMIDE 40 MG/4 ML VIAL IVP ONE (11:15)
[2016-07-30] MEDS ORDERED: NOREPINEPHRINE 8 MG in IV NORMAL SALINE 250 ML IV ONE (11:15)
--- NOTE | 2016-07-30 11:23 | PDOC ---
PROGRESS NOTES Assessment Problems Medical Problems: (1) Abdominal pain Status: Acute (2) Enterocutaneous fistula Status: Acute (3) Sepsis Status: Acute (4) Urinary tract infection Status: Acute (5) UTI (urinary tract infection) Status: Acute Metabolic encephalopathy due to sepsis, no evidence of other intrinsic neurological problem. Plan No additional neurological investigations needed Subjective no complaints Objective Vital Signs Date Time Temp Pulse Resp B/P Pulse Ox O2 Delivery O2 Flow Rate FiO2 07/30/16 10:02 94 Nasal Cannula 2.0 07/30/16 10:00 101 30 80/54 07/30/16 04:00 97.2 97.2 Intake and Output 07/30/16 07:00 Intake Total 1623 ml Output Total 767 ml Balance 856 ml IV Total 1623 ml Output Urine Total 767 ml PHYSICAL EXAM Alert. Tells me her name, "hospital," 2 days off on daate PERRL. EOMI. CN: no focal findings. Muscle tone: normal. Muscle strength: moves all extremities DTR: 1+ Plantar reflex: flexor Gait: not examined in bed. Sensory exam: no abnormal findings. No cerebellar signs elicited. Review of Relevant I have reviewed the following items lucila (where applicable) has been applied. Labs Laboratory Tests Test 07/29/16 05:30 07/30/16 06:55 07/30/16 06:58 White Blood Count 8.7x10^3/uL (4.0-11.0) 4.0x10^3/uL (4.0-11.0) Red Blood Count 3.75x10^6/uL (3.50-5.40) 3.49x10^6/uL (3.50-5.40) Hemoglobin 9.8g/dL (12.0-15.5) 9.3g/dL (12.0-15.5) Hematocrit 30.4% (36.0-47.0) 28.8% (36.0-47.0) Mean Corpuscular Volume 81fL (79-100) 83fL (79-100) Mean Corpuscular Hemoglobin 26pg (25-35) 27pg (25-35) Mean Corpuscular Hemoglobin Concent 32g/dL (31-37) 32g/dL (31-37) Red Cell Distribution Width 19.7% (11.5-14.5) 20.3% (11.5-14.5) Platelet Count 213x10^3/uL (140-400) 107x10^3/uL (140-400) Neutrophils (%) (Auto) 96% (31-73) 93% (31-73) Lymphocytes (%) (Auto) 2% (24-48) 3% (24-48) Monocytes (%) (Auto) 1% (0-9) 2% (0-9) Eosinophils (%) (Auto) 0% (0-3) 0% (0-3) Basophils (%) (Auto) 1% (0-3) 1% (0-3) Neutrophils # (Auto) 8.4x10^3uL (1.8-7.7) 3.7x10^3uL (1.8-7.7) Lymphocytes # (Auto) 0.1x10^3/uL (1.0-4.8) 0.1x10^3/uL (1.0-4.8) Monocytes # (Auto) 0.1x10^3/uL (0.0-1.1) 0.1x10^3/uL (0.0-1.1) Eosinophils # (Auto) 0.0x10^3/uL (0.0-0.7) 0.0x10^3/uL (0.0-0.7) Basophils # (Auto) 0.1x10^3/uL (0.0-0.2) 0.0x10^3/uL (0.0-0.2) Segmented Neutrophils % 34% (35-66) Band Neutrophils % 60% (0-9) Lymphocytes % 2% (24-48) Monocytes % 1% (0-10) Metamyelocytes % 3% (0-0) Platelet Estimate Adequate (ADEQUATE) Polychromasia Slight Anisocytosis Slight Sodium Level 137mmol/L (136-145) 142mmol/L (136-145) Potassium Level 4.4mmol/L (3.5-5.1) 3.8mmol/L (3.5-5.1) Chloride Level 106mmol/L (98-107) 111mmol/L (98-107) Carbon Dioxide Level 20mmol/L (21-32) 16mmol/L (21-32) Anion Gap 11 (6-14) 15 (6-14) Blood Urea Nitrogen 14mg/dL (7-20) 32mg/dL (7-20) Creatinine 0.9mg/dL (0.6-1.0) 1.7mg/dL (0.6-1.0) Estimated GFR (Cockcroft-Gault) 77.0 37.0 Glucose Level 119mg/dL (70-99) 116mg/dL (70-99) Calcium Level 8.6mg/dL (8.5-10.1) 8.1mg/dL (8.5-10.1) Magnesium Level 2.4mg/dL (1.8-2.4) Total Bilirubin 1.8mg/dL (0.2-1.0) Direct Bilirubin 1.3mg/dL (0.0-0.2) Aspartate Amino Transf (AST/SGOT) 47U/L (15-37) Alanine Aminotransferase (ALT/SGPT) 23U/L (14-59) Alkaline Phosphatase 238U/L (46-116) Total Protein 6.7g/dL (6.4-8.2) Albumin 1.9g/dL (3.4-5.0) Phosphorus Level 3.9mg/dL (2.6-4.7) Laboratory Tests Test 07/30/16 06:55 07/30/16 06:58 Sodium Level 142mmol/L (136-145) Potassium Level 3.8mmol/L (3.5-5.1) Chloride Level 111mmol/L (98-107) Carbon Dioxide Level 16mmol/L (21-32) Anion Gap 15 (6-14) Blood Urea Nitrogen 32mg/dL (7-20) Creatinine 1.7mg/dL (0.6-1.0) Estimated GFR (Cockcroft-Gault) 37.0 Glucose Level 116mg/dL (70-99) Calcium Level 8.1mg/dL (8.5-10.1) Phosphorus Level 3.9mg/dL (2.6-4.7) White Blood Count 4.0x10^3/uL (4.0-11.0) Red Blood Count 3.49x10^6/uL (3.50-5.40) Hemoglobin 9.3g/dL (12.0-15.5) Hematocrit 28.8% (36.0-47.0) Mean Corpuscular Volume 83fL (79-100) Mean Corpuscular Hemoglobin 27pg (25-35) Mean Corpuscular Hemoglobin Concent 32g/dL (31-37) Red Cell Distribution Width 20.3% (11.5-14.5) Platelet Count 107x10^3/uL (140-400) Neutrophils (%) (Auto) 93% (31-73) Lymphocytes (%) (Auto) 3% (24-48) Monocytes (%) (Auto) 2% (0-9) Eosinophils (%) (Auto) 0% (0-3) Basophils (%) (Auto) 1% (0-3) Neutrophils # (Auto) 3.7x10^3uL (1.8-7.7) Lymphocytes # (Auto) 0.1x10^3/uL (1.0-4.8) Monocytes # (Auto) 0.1x10^3/uL (0.0-1.1) Eosinophils # (Auto) 0.0x10^3/uL (0.0-0.7) Basophils # (Auto) 0.0x10^3/uL (0.0-0.2) Microbiology 07/28/16 Blood Culture - Final, Complete 07/15/16 Urine Culture - Final, Complete 07/15/16 Urine Culture Result 1 (ROYA) - Final, Complete 07/15/16 Urine Culture Result 2 (ROYA) - Final, Complete 07/15/16 Antimicrobic Susceptibility - Final, Complete Medications Current Medications Piperacillin Sod/ Tazobactam Sod/ Sodium Chloride (Zosyn/Iv Sodium Chloride 0.9 % 100ml) 100 ml @ 200 mls/hr 1X ONCE IV Last administered on 07/15/16 22:56; Start 07/15/16 at 22:00; Stop 07/15/16 at 22:29; Status DC Fentanyl Citrate 50 mcg 50 mcg PRN Q15MIN PRN IV PAIN GREATER THAN 3/10 Last administered on 07/16/16 00:30; Start 07/15/16 at 21:45; Stop 07/16/16 at 02:00; Status DC Sodium Chloride 1,000 ml @ 1,000 mls/hr 1X ONCE IV Last administered on 21:59; Start 07/15/16 at 22:00; Stop 07/15/16 at 22:59; Status DC Sodium Chloride (Iv Sodium Chloride 0.9% 500ml Bag) 500 ml @ 500 mls/hr 1X ONCE IV Last administered on 07/15/16 22:00; Start 07/15/16 at 22:00; Stop at 22:59; Status DC Ondansetron HCl (Zofran) 4 mg PRN Q8HRS PRN IV NAUSEA/VOMITING; Start 07/15/16 at 23:30; Stop 07/16/16 at 08:52; Status DC Fentanyl Citrate 50 mcg 50 mcg PRN Q2HR PRN IV SEVERE PAIN Last administered on 07/16/16 08:10; Start 07/15/16 at 23:30; Stop 07/16/16 at 08:52; Status DC Sodium Chloride (Iv Sodium Chloride 0.9% 1000ml Bag) 1,000 ml @ 150 mls/hr Q6H40M IV Last administered on 07/15/16 02:00; Start 07/15/16 at 23:45; Stop 07/16/16 at 08:52; Status DC Acetaminophen (Tylenol) 650 mg PRN Q4HRS PRN PO FEVER; Start 07/15/16 at 23:30; Stop 07/16/16 at 23:29; Status DC Info (Do NOT chart on this placeholder) 1 each PRN DAILY PRN MC NEEDS VERIFICATION; Start 07/16/16 at 03:00; Status Cancel Acetaminophen 650 mg 650 mg PRN Q4HRS PRN PO MILD PAIN / TEMP Last administered on 07/28/16 07:42; Start 07/16/16 at 08:45; Stop 07/29/16 at 08:33 ; Status DC Piperacillin Sod/ Tazobactam Sod 3.375 gm/Sodium Chloride 50 ml @ 100 mls/hr Q6HRS IV Last administered on 07/18/16 05:50; Start 07/16/16 at 10:00; Stop 07/18 at 13:28; Status DC Linezolid (Zyvox Premix) 300 ml @ 300 mls/hr Q12HR IV Last administered on 07/18 08:34; Start 07/16/16 at 10:00; Stop 07/18/16 at 13:28; Status DC Hydromorphone HCl (Dilaudid) 2 mg PRN Q4HRS PRN IV MODERATE PAIN Last administered on 07/28/16 23:33; Start 07/16/16 at 08:45 Hydromorphone HCl (Dilaudid) 4 mg PRN Q4HRS PRN IV SEVERE PAIN Last administered on 07/30/16 09:23; Start 07/16/16 at 08:45 Pantoprazole Sodium (Protonix) 40 mg DAILYAC PO Last administered on 07/27/16 11:11; Start 07/16/16 at 09:30; Stop 07/29/16 at 08:44; Status DC Hyoscyamine (Anaspaz) 0.125 mg Q6HRS PO Last administered on 07/20/16 05:20; Start 07/16/16 at 12:00; Stop 07/20/16 at 08:58; Status DC Phenazopyridine HCl (Pyridium) 200 mg TID PO Last administered on 07/20/16 08: 25; Start 07/16/16 at 09:30; Stop 07/20/16 at 08:58; Status DC Lorazepam (Ativan) 0.5 mg PRN BID PRN PO ANXIETY / AGITATION Last administered on 07/29/16 02:16; Start 07/16/16 at 08:45 Simethicone (Gas-X) 80 mg PRN Q4HRS PRN PO GAS / BLOATING Last administered on 07/24/16 22:30; Start 07/16/16 at 08:45 Zolpidem Tartrate 5 mg 5 mg PRN QHS PRN PO INSOMNIA Last administered on 23:14; Start 07/16/16 at 08:45 Potassium Chloride/Dextrose/ Sod Cl 1,000 ml @ 80 mls/hr [id number] IV Last administered on 07/16/16 10:54; Start 07/16/16 at 09:30; Stop 07/16/16 at 21:59; Status DC Fluconazole/ Sodium Chloride (Diflucan 200mg/ 100ml Premix) 100 ml @ 100 mls/ hr Q24H IV Last administered on 07/18/16 11:43; Start 07/16/16 at 11:00; Stop at 13:28; Status DC Info 1 each 1 each PRN DAILY PRN MC SEE COMMENTS Last administered on 09:27; Start 07/16/16 at 10:00 Sodium Chloride 220 meq/Sodium Acetate 90 meq/ Potassium Chloride 50 meq/ Potassium Acetate 15 meq/Potassium Phosphate 10 mmol/ Magnesium Sulfate 50 meq/ Calcium Gluconate 6 meq/ Multivitamins/ Minerals 10 ml/ Chromium/Copper/ Manganese/Seleni/ Zn 1 ml/Total Parenteral Nutrition/Amino Acids/Dextro... 1, 920 ml @ 80 mls/hr TPN CONT IV ; Start 07/16/16 at 22:00; Stop 07/16/16 at 22:00 ; Status DC Sodium Chloride/ Sodium Acetate/ Potassium Chloride/ Potassium Acetate/ Potassium Phosphate/ Magnesium Sulfate/ Calcium Gluconate/ Multivitamins/ Minerals/Chromium/ Copper/Manganese/ Seleni/Zn/Total Parenteral Nutrition/Amino Acids/Dextrose/ Fat Emulsion Intravenous (Sodium Chlori... 1,820 ml @ 75.833 mls/ hr TPN CONT IV Last administered on 07/16/16 21:03; Start 07/16/16 at 22: 00; Stop 07/17/16 at 21:59; Status DC Ondansetron HCl (Zofran) 4 mg PRN Q6HRS PRN IV NAUSEA/VOMITING Last administered on 07/21/16 08:48; Start 07/16/16 at 17:15 Diphenhydramine HCl (Benadryl) 25 mg PRN Q6HRS PRN PO ITCHING Last administered on 07/25/16 23:38; Start 07/16/16 at 17:45 Lidocaine (Xylocaine) 1 sang BID TP Last administered on 07/30/16 08:40; Start 07/17/16 at 09:00 Zinc Oxide 1 sang 1 sang BID TP Last administered on 07/30/16 08:40; Start at 09:30 Sodium Chloride/ Sodium Acetate/ Potassium Chloride/ Potassium Acetate/ Potassium Phosphate/ Magnesium Sulfate/ Calcium Gluconate/ Multivitamins/ Minerals/Chromium/ Copper/Manganese/ Seleni/Zn/Total Parenteral Nutrition/Amino Acids/Dextrose/ Fat Emulsion Intravenous (Sodium Chlori... 1,920 ml @ 80 mls/ hr TPN CONT IV Last administered on 07/17/16 22:13; Start 07/17/16 at 22:00; Stop 07/18/16 at 21:59; Status DC Furosemide 40 mg 40 mg 1X ONCE IVP Last administered on 07/18/16 11:43; Start 07/18/16 at 11:00; Stop 07/18/16 at 11:07; Status DC Sodium Chloride 220 meq/Sodium Acetate 90 meq/ Potassium Chloride 50 meq/ Potassium Acetate 15 meq/Potassium Phosphate 10 mmol/ Magnesium Sulfate 50 meq/ Calcium Gluconate 3 meq/ Multivitamins/ Minerals 10 ml/ Chromium/Copper/ Manganese/Seleni/ Zn 1 ml/Total Parenteral Nutrition/Amino Acids/Dextro... 1, 920 ml @ 80 mls/hr TPN CONT IV Last administered on 07/19/16 00:03; Start 07/18/16 at 22:00; Stop 07/19/16 at 21:59; Status DC Meropenem 1 gm/ Sodium Chloride 100 ml @ 200 mls/hr Q8HRS IV Last administered on 07/20/16 05:21; Start 07/18/16 at 14:00; Stop 07/20/16 at 11:25; Status DC Micafungin Sodium 100 mg/Dextrose 100 ml @ 100 mls/hr Q24H IV Last administered on 07/19/16 15:05; Start 07/18/16 at 14:00; Stop 07/20/16 at 11:25; Status DC Daptomycin/Sodium Chloride (Cubicin/Iv Sodium Chloride 0.9% 50ml) 50 ml @ 100 mls/hr Q24H IV Last administered on 07/19/16 16:56; Start 07/18/16 at 15:00; Stop 07/20/16 at 11:25; Status DC Alteplase, Recombinant (Cathflo) 2 mg 1X ONCE INT CAT Last administered on 07/19 06:24; Start 07/19/16 at 07:00; Stop 07/19/16 at 07:01; Status DC Gentamicin Sulfate 1 each 1 each PRN DAILY PRN MC SEE COMMENTS Last administered on 07/25/16 15:31; Start 07/19/16 at 12:15; Stop 07/25/16 at 16:14 ; Status DC Gentamicin Sulfate/Sodium Chloride (Iv Sodium Chloride 0.9% 100ml) 106.75 ml @ 106.75 mls/hr Q24H IV Last administered on 07/25/16 15:31; Start 07/19/16 at 13 :00; Stop 07/25/16 at 16:12; Status DC Gentamicin Sulfate 1 each 1 each 1X ONCE MC Last administered on 07/19/16 23: 00; Start 07/19/16 at 23:00; Stop 07/19/16 at 23:01; Status DC Sodium Chloride/ Sodium Acetate/ Potassium Chloride/ Potassium Acetate/ Potassium Phosphate/ Magnesium Sulfate/ Calcium Gluconate/ Multivitamins/ Minerals/Chromium/ Copper/Manganese/ Seleni/Zn/Total Parenteral Nutrition/Amino Acids/Dextrose/ Fat Emulsion Intravenous (Sodium Chlori... 1,920 ml @ 80 mls/ hr TPN CONT IV Last administered on 07/19/16 20:51; Start 07/19/16 at 22:00; Stop 07/20/16 at 21:59; Status DC Hyoscyamine (Anaspaz) 0.125 mg PRN Q6HRS PRN PO BLADDER SPASM; Start 07/20/16 at 09:00 Phenazopyridine HCl 200 mg 200 mg PRN TID PRN PO BLADDER SPASM Last administered on 07/21/16 20:14; Start 07/20/16 at 09:00 Linezolid 300 ml @ 300 mls/hr Q12HR IV Last administered on 07/25/16 09:02; Start 07/20/16 at 12:00; Stop 07/25/16 at 16:12; Status DC Sodium Chloride 220 meq/Sodium Acetate 90 meq/ Potassium Chloride 50 meq/ Potassium Acetate 15 meq/Potassium Phosphate 10 mmol/ Magnesium Sulfate 50 meq/ Calcium Gluconate 3 meq/ Multivitamins/ Minerals 10 ml/ Chromium/Copper/ Manganese/Seleni/ Zn 1 ml/Total Parenteral Nutrition/Amino Acids/Dextro... 1, 920 ml @ 80 mls/hr TPN CONT IV Last administered on 07/20/16 21:30; Start 07/20/16 at 22:00; Stop 07/21/16 at 21:59; Status DC Sodium Chloride/ Sodium Acetate/ Potassium Chloride/ Potassium Acetate/ Potassium Phosphate/ Magnesium Sulfate/ Multivitamins/ Minerals/Chromium/ Copper /Manganese/ Seleni/Zn/Total Parenteral Nutrition/Amino Acids/Dextrose/ Fat Emulsion Intravenous (Sodium Chloride/ Potass... 1,920 ml @ 80 mls/hr TPN CONT IV Last administered on 07/21/16 22:05; Start 07/21/16 at 22:00; Stop at 21:59; Status DC Alteplase, Recombinant 2 mg 2 mg PRN DAILY PRN INT CAT INFLAMMATION Last administered on 07/27/16 11:31; Start 07/21/16 at 15:00 Sodium Chloride 220 meq/Sodium Acetate 90 meq/ Potassium Chloride 50 meq/ Potassium Acetate 15 meq/Potassium Phosphate 10 mmol/ Magnesium Sulfate 50 meq/ Multivitamins/ Minerals 10 ml/ Chromium/Copper/ Manganese/Seleni/ Zn 1 ml/Total Parenteral Nutrition/Amino Acids/Dextrose/ Fat Emuls... 1,920 ml @ 80 mls/hr TPN CONT IV Last administered on 07/22/16 20:53; Start 07/22/16 at 22:00; Stop 07/23/16 at 21:59; Status DC Sodium Chloride/ Sodium Acetate/ Potassium Chloride/ Potassium Acetate/ Potassium Phosphate/ Magnesium Sulfate/ Multivitamins/ Minerals/Chromium/ Copper /Manganese/ Seleni/Zn/Total Parenteral Nutrition/Amino Acids/Dextrose/ Fat Emulsion Intravenous (Sodium Chloride/ Potass... 1,920 ml @ 80 mls/hr TPN CONT IV Last administered on 07/23/16 21:16; Start 07/23/16 at 22:00; Stop 07/24 at 21:59; Status DC Gentamicin Sulfate 1 each 1 each 1X ONCE MC ; Start 07/23/16 at 22:00; Stop 07/23 at 22:01; Status Cancel Sodium Chloride/ Sodium Acetate/ Potassium Chloride/ Potassium Acetate/ Potassium Phosphate/ Magnesium Sulfate/ Multivitamins/ Minerals/Chromium/ Copper /Manganese/ Seleni/Zn/Total Parenteral Nutrition/Amino Acids/Dextrose/ Fat Emulsion Intravenous (Sodium Chloride/ Potass... 1,920 ml @ 80 mls/hr TPN CONT IV Last administered on 07/24/16 21:15; Start 07/24/16 at 22:00; Stop 04/30 at 21:59; Status DC Gentamicin Sulfate 1 each 1X ONCE MC ; Start 07/25/16 at 12:30; Stop 07/25/16 at 12:31; Status Cancel Amlodipine Besylate 5 mg 5 mg DAILY PO Last administered on 07/27/16 11:12; Start 07/25/16 at 12:00; Stop 07/29/16 at 08:44; Status DC Sodium Chloride 220 meq/Sodium Acetate 90 meq/ Potassium Chloride 30 meq/ Potassium Acetate 15 meq/Potassium Phosphate 10 mmol/ Magnesium Sulfate 50 meq/ Multivitamins/ Minerals 10 ml/ Chromium/Copper/ Manganese/Seleni/ Zn 1 ml/Total Parenteral Nutrition/Amino Acids/Dextrose/ Fat Emuls... 1,920 ml @ 80 mls/hr TPN CONT IV Last administered on 07/25/16 22:25; Start 07/25/16 at 22:00; Stop 07/26/16 at 21:59; Status DC Sodium Chloride/ Sodium Acetate/ Potassium Chloride/ Potassium Acetate/ Potassium Phosphate/ Magnesium Sulfate/ Multivitamins/ Minerals/Chromium/ Copper /Manganese/ Seleni/Zn/Total Parenteral Nutrition/Amino Acids/Dextrose/ Fat Emulsion Intravenous (Sodium Chloride/ Potass... 1,920 ml @ 80 mls/hr TPN CONT IV Last administered on 07/26/16 23:16; Start 07/26/16 at 22:00; Stop at 21:59; Status DC Furosemide 20 mg 20 mg 1X ONCE IVP Last administered on 07/27/16 11:31; Start 07/27/16 at 09:00; Stop 07/27/16 at 09:01; Status DC Daptomycin 340 mg/ Sodium Chloride 50 ml @ 100 mls/hr Q24H IV Last administered on 07/29/16 15:05; Start 07/27/16 at 13:00; Stop 07/30/16 at 07:25 ; Status DC Piperacillin Sod/ Tazobactam Sod 3.375 gm/Sodium Chloride 50 ml @ 100 mls/hr Q6HRS IV Last administered on 07/30/16 05:30; Start 07/27/16 at 12:30; Stop at 07:25; Status DC Fluconazole/ Sodium Chloride 100 ml @ 100 mls/hr Q24H IV Last administered on 07/28/16 13:32; Start 07/27/16 at 13:00; Stop 07/29/16 at 00:53; Status DC Sodium Chloride 1,000 ml @ 1,000 mls/hr 1X ONCE IV Last administered on 12:34; Start 07/27/16 at 12:30; Stop 07/27/16 at 13:29; Status DC Sodium Chloride 220 meq/Sodium Acetate 90 meq/ Potassium Chloride 30 meq/ Potassium Acetate 15 meq/Potassium Phosphate 10 mmol/ Magnesium Sulfate 45 meq/ Multivitamins/ Minerals 10 ml/ Chromium/Copper/ Manganese/Seleni/ Zn 1 ml/Total Parenteral Nutrition/Amino Acids/Dextrose/ Fat Emuls... 1,920 ml @ 80 mls/hr TPN CONT IV Last administered on 07/27/16 22:38; Start 07/27/16 at 22:00; Stop 07/28/16 at 21:59; Status DC Sodium Chloride (Iv Sodium Chloride 0.9% 1000ml Bag) 1,000 ml @ 45 mls/hr [id number] IV Last administered on 07/28/16 03:24; Start 07/27/16 at 17:00; Stop 07/28/16 at 10:27; Status DC Acetaminophen 650 mg 650 mg PRN Q6HRS PRN RI fever Last administered on 03:57; Start 07/27/16 at 16:30; Stop 07/29/16 at 08:33; Status DC Sodium Chloride 1,000 ml @ 427.5 mls/ hr Q2H21M IV Last administered on 19:30; Start 07/27/16 at 19:30; Stop 07/27/16 at 23:30; Status DC Sodium Chloride 220 meq/Sodium Acetate 90 meq/ Potassium Chloride 30 meq/ Potassium Acetate 15 meq/Potassium Phosphate 10 mmol/ Magnesium Sulfate 45 meq/ Multivitamins/ Minerals 10 ml/ Chromium/Copper/ Manganese/Seleni/ Zn 1 ml/Total Parenteral Nutrition/Amino Acids/Dextrose/ Fat Emuls... 1,920 ml @ 80 mls/hr TPN CONT IV Last administered on 07/28/16 21:43; Start 07/28/16 at 22:00; Stop 07/29/16 at 21:59; Status DC Micafungin Sodium/ Dextrose (Mycamine) 100 ml @ 100 mls/hr Q24H IV Last administered on 07/30/16 00:47; Start 07/29/16 at 01:00 Lorazepam (Ativan) 0.05 mg PRN Q4HRS PRN IV ANXIETY / AGITATION; Start at 02:30; Stop 07/29/16 at 02:48; Status DC Lorazepam (Ativan) 0.5 mg PRN Q4HRS PRN IV ANXIETY / AGITATION Last administered on 07/29/16 03:18; Start 07/29/16 at 03:00 Acetaminophen (Tylenol) 650 mg PRN Q4HRS PRN RI MILD PAIN / TEMP; Start at 08:30 Ketorolac Tromethamine (Toradol) 30 mg PRN Q6HRS PRN IV PAIN/FEVER Last administered on 07/30/16 00:50; Start 07/29/16 at 08:30; Stop 08/03/16 at 08:29 Pantoprazole Sodium 40 mg 40 mg DAILYAC IVP Last administered on 07/30/16 08: 40; Start 07/29/16 at 09:00 Sodium Chloride 1,000 ml @ 45 mls/hr [id number] IV Last administered on 08:39; Start 07/29/16 at 08:45 Sodium Chloride/ Sodium Acetate/ Potassium Chloride/ Potassium Acetate/ Potassium Phosphate/ Magnesium Sulfate/ Multivitamins/ Minerals/Chromium/ Copper /Manganese/ Seleni/Zn/Total Parenteral Nutrition/Amino Acids/Dextrose/ Fat Emulsion Intravenous (Sodium Chloride/ Potass... 1,920 ml @ 80 mls/hr TPN CONT IV Last administered on 07/29/16 22:06; Start 07/29/16 at 22:00; Stop at 21:59 Lidocaine/Sodium Bicarbonate 20 ml 20 ml STK-MED ONCE IJ ; Start 07/29/16 at 13: 13; Stop 07/29/16 at 13:14; Status DC Heparin Sodium/ Sodium Chloride 500 ml @ As Directed STK-MED ONCE .ROUTE ; Start 07/29/16 at 13:13; Stop 07/29/16 at 13:14; Status DC Lidocaine/ Epinephrine (Xylocaine 1%-Epi 1:100,000) 20 ml STK-MED ONCE .ROUTE ; Start 07/29/16 at 13:22; Stop 07/29/16 at 13:23; Status DC Midazolam HCl (Versed) 5 mg STK-MED ONCE .ROUTE ; Start 07/29/16 at 13:32; Stop 07/29/16 at 13:33; Status DC Fentanyl Citrate (Fentanyl 5ml Vial) 250 mcg STK-MED ONCE .ROUTE ; Start at 13:32; Stop 07/29/16 at 13:33; Status DC Heparin Sodium/ Sodium Chloride 1,000 unit 1X ONCE IART Last administered on 13:45; Start 07/29/16 at 13:45; Stop 07/29/16 at 13:48; Status DC Midazolam HCl (Versed) 5 mg 1X ONCE IV Last administered on 07/29/16 13:45; Start 07/29/16 at 13:45; Stop 07/29/16 at 13:48; Status DC Fentanyl Citrate (Fentanyl 5ml Vial) 250 mcg 1X ONCE IV Last administered on 13:45; Start 07/29/16 at 13:45; Stop 07/29/16 at 13:48; Status DC Lidocaine/ Epinephrine 20 ml 20 ml 1X ONCE IJ Last administered on 07/29/16 13:45; Start 07/29/16 at 13:45; Stop 07/29/16 at 13:48; Status DC Sodium Chloride 220 meq/Sodium Acetate 90 meq/ Potassium Chloride 15 meq/ Potassium Acetate 30 meq/Potassium Phosphate 10 mmol/ Magnesium Sulfate 45 meq/ Multivitamins/ Minerals 10 ml/ Chromium/Copper/ Manganese/Seleni/ Zn 1 ml/Total Parenteral Nutrition/Amino Acids/Dextrose/ Fat Emuls... 1,920 ml @ 80 mls/hr TPN CONT IV ; Start 07/30/16 at 22:00; Stop 07/31/16 at 21:59 Norepinephrine Bitartrate 8 mg/ Sodium Chloride 258 ml @ 1.93 mls/hr 1X ONCE IV Last administered on 07/30/16 11:17; Start 07/30/16 at 11:15; Stop at 00:55 Norepinephrine Bitartrate/Sodium Chloride (Levophed Vial/ Iv Sodium Chloride 0.9 % 250ml) 258 ml @ 0 mls/hr CONT PRN IV SEE I/O RECORD; Start 07/30/16 at 11:15 Furosemide (Lasix) 60 mg 1X ONCE IVP Last administered on 07/30/16t 11:14; Start 07/30/16 at 11:15; Stop 07/30/16 at 11:16; Status DC Active Scripts Active Dilaudid (Hydromorphone Hcl) 4 Mg Tablet 4 Mg PO Q6HRS Phenazopyridine Hcl 200 Mg Tablet 200 Mg PO PRN TID PRN FENTANYL 50mcg/hr (Fentanyl) 1 Each Patch.td72 1 Patch TD Q3DAYS Anaspaz (Hyoscyamine Sulfate) 0.125 Mg Tab.rapdis 0.125 Mg PO Q6HRS PRN Cefpodoxime Proxetil 200 Mg Tablet 200 Mg PO BID Sertraline Hcl 50 Mg Tablet 100 Mg PO DAILY 30 Days Protonix (Pantoprazole Sodium) 40 Mg Tablet.dr 1 Tab PO DAILY Zinc Oxide 56.7 Gm Oint...g. 1 Sang TP BID Lidocaine 35.44 Gm Oint...g. 1 Sang TP BID Ondansetron Odt (Ondansetron) 4 Mg Tab.rapdis 8 Mg PO PRN Q8HRS PRN Gas-X (Simethicone) 80 Mg Tab.chew 80 Mg PO PRN QID PRN Reported Lorazepam 0.5 Mg Tablet 0.5 Mg PO PRN BID PRN Vitals/I & O Vital Sign - Last 24 Hours 07/29/16 07/29/16 07/29/16 07/29/16 11:30 12:00 12:00 13:45 Temp 98.8 98.8 Pulse 96 Resp 20 16 B/P 87/51 Pulse Ox 100 97 O2 Delivery Room Air Room Air Room Air Nasal Cannula O2 Flow Rate 2.0 07/29/16 07/29/16 07/29/16 07/29/16 14:34 15:00 15:00 15:15 Pulse 95 102 102 Resp 16 29 24 B/P 98/55 86/57 Pulse Ox 96 96 94 O2 Delivery Room Air Room Air Room Air Room Air 07/29/16 07/29/16 07/29/16 07/29/16 15:30 15:45 16:00 16:00 Temp 97.5 97.5 Pulse 100 100 100 Resp 23 26 25 B/P 87/57 83/55 86/51 Pulse Ox 94 97 97 O2 Delivery Room Air Room Air Room Air Room Air 07/29/16 07/29/16 07/29/16 07/29/16 16:15 16:30 16:55 18:00 Pulse 102 104 132 Resp 23 25 28 B/P 112/56 102/75 143/80 Pulse Ox 96 96 64 O2 Delivery Room Air Room Air Room Air Room Air 07/29/16 07/29/16 07/29/16 07/29/16 19:00 20:00 20:00 21:00 Temp 99.3 99.3 Pulse 123 120 126 Resp 23 14 22 B/P 93/61 93/49 91/52 Pulse Ox 98 100 97 O2 Delivery Room Air Room Air Room Air Room Air 07/29/16 07/29/16 07/29/16 07/29/16 21:04 22:00 23:00 23:55 Pulse 126 128 Resp 38 31 20 B/P 87/50 110/58 Pulse Ox 98 93 94 O2 Delivery Room Air Room Air Room Air Room Air 07/30/16 07/30/16 07/30/16 07/30/16 00:00 01:00 02:00 03:00 Temp 97.4 97.4 Pulse 127 131 121 109 Resp 20 17 31 31 B/P 110/55 105/63 82/48 84/49 Pulse Ox 95 94 95 95 O2 Delivery Room Air Room Air Room Air Room Air 07/30/16 07/30/16 07/30/16 07/30/16 03:11 03:41 04:00 04:00 Temp 97.2 97.2 Pulse 104 Resp 37 21 22 B/P 80/48 Pulse Ox 90 95 O2 Delivery Room Air Room Air Room Air 07/30/16 07/30/16 07/30/16 07/30/16 05:00 06:00 07:00 08:00 Pulse 103 103 102 Resp 24 20 28 B/P 106/42 85/52 94/48 Pulse Ox 97 93 93 O2 Delivery Room Air Nasal Cannula Nasal Cannula Room Air O2 Flow Rate 2.0 2.0 07/30/16 07/30/16 07/30/16 07/30/16 08:00 09:00 09:23 10:00 Pulse 99 102 101 Resp 27 30 30 B/P 82/41 81/48 80/54 Pulse Ox 91 93 94 O2 Delivery Nasal Cannula Nasal Cannula Nasal Cannula Nasal Cannula O2 Flow Rate 2.0 2.0 2.0 2.0 07/30/16 10:02 Pulse Ox 94 O2 Delivery Nasal Cannula O2 Flow Rate 2.0 Intake and Output 07/29/16 07/29/16 07/30/16 15:00 23:00 07:00 Intake Total 50 ml 1573 ml Output Total 551 ml 216 ml Balance -501 ml 1357 ml LISSA ANTOINE MD Jul 30, 2016 11:23
[2016-07-30 11:32] LABS: FIO2 ABG 28
--- NOTE | 2016-07-30 11:59 | RAD ---
Portable chest, 07/30/2016: History: Respiratory distress Comparison is made to a study from 07/27/2016. A right jugular central venous catheter extends into the superior aspect of the right atrium. The heart appears to be within normal limits in size. Moderate bilateral pulmonary infiltrates have developed with poor definition of the underlying pulmonary vascularity. The infiltrates are most prominent centrally and in the upper lobes. No pleural fluid is evident. There is no evidence of pneumothorax. IMPRESSION: Moderate bilateral pulmonary infiltrates have developed suggesting pulmonary edema versus pneumonia. Note: The findings were called to the patient's nurse in the ICU at 11:56 AM on 07/30/2016.
--- NOTE | 2016-07-30 12:30 | RAD ---
Renal ultrasound, 07/30/2016: History: Acute renal failure The right kidney measures 11.7 cm in length while the left kidney measures 12.5 cm. There is no evidence of hydronephrosis or a renal mass. A Avila catheter is present in the collapsed urinary bladder. Bladder wall thickening is probably accentuated by its collapsed state. Incidental note is made of borderline splenic enlargement. The stomach is distended with fluid. There appears to be a tiny amount of free fluid along the inferior margin of the right lobe of the liver. IMPRESSION: No evidence of renal obstruction.
--- NOTE | 2016-07-30 13:01 | PDOC ---
PROGRESS NOTES Subjective Subjective blood cultures growing yeast . blood pressure low and started levophed. serum creatinine 1.7 and urine output is now poor. renal sonogram negative. afebrile. tunneled PICC removed yesterday and has another PICC non-tunneled. she feels better alert and talking but more short of breath. CVP low earlier and cxr shows bilateral lung infiltrates. ABG shows metabolic acidosis. lab reviewed. Objective Objective Vital Signs Date Time Temp Pulse Resp B/P Pulse Ox O2 Delivery O2 Flow Rate FiO2 07/30/16 10:02 94 Nasal Cannula 2.0 07/30/16 10:00 101 30 80/54 07/30/16 04:00 97.2 97.2 Intake and Output 07/30/16 07:00 Intake Total 1623 ml Output Total 767 ml Balance 856 ml IV Total 1623 ml Output Urine Total 767 ml Physical Exam Abdomen: Soft Heart: Regular rate, Normal S1, Normal S2 Extremities: Other (1 pus edema feet) General: Alert HEENT: Atraumatic Lungs: Other (few basilar crackles. ) Neuro: Normal speech Psych/Mental Status: Mood NL Skin: No rashes Assessment Assessment Problems Medical Problems::Urinary tract infection. enterococcus and MDR enterobacter treated 2. Bladder spasms. resolved 3. Fungemia sepsis with shock metabolic encephalopathy improved acute kidney injury. suspect ATN due to sepsis and hypotension bilateral lung infiltrates metabolic acidosis 4. Enterocutaneous fistula. 5. Enterovesical fistula. 6. Anemia of chronic disease. 7. Moderately severe protein calorie malnutrition. (1) Abdominal pain Status: Acute (2) Enterocutaneous fistula Status: Acute (3) Sepsis Status: Acute (4) Urinary tract infection Status: Acute (5) UTI (urinary tract infection) Status: Acute Plan Plan of Care levophed micafungin TPN consult , lou consult dr. keita consult dr. faulkner echocardiogram Comment Review of Relevant I have reviewed the following items lucila (where applicable) has been applied. Labs Laboratory Tests Test 07/29/16 05:30 07/30/16 06:55 07/30/16 06:58 07/30/16 11:02 White Blood Count 8.7x10^3/uL (4.0-11.0) 4.0x10^3/uL (4.0-11.0) Red Blood Count 3.75x10^6/uL (3.50-5.40) 3.49x10^6/uL (3.50-5.40) Hemoglobin 9.8g/dL (12.0-15.5) 9.3g/dL (12.0-15.5) Hematocrit 30.4% (36.0-47.0) 28.8% (36.0-47.0) Mean Corpuscular Volume 81fL (79-100) 83fL (79-100) Mean Corpuscular Hemoglobin 26pg (25-35) 27pg (25-35) Mean Corpuscular Hemoglobin Concent 32g/dL (31-37) 32g/dL (31-37) Red Cell Distribution Width 19.7% (11.5-14.5) 20.3% (11.5-14.5) Platelet Count 213x10^3/uL (140-400) 107x10^3/uL (140-400) Neutrophils (%) (Auto) 96% (31-73) 93% (31-73) Lymphocytes (%) (Auto) 2% (24-48) 3% (24-48) Monocytes (%) (Auto) 1% (0-9) 2% (0-9) Eosinophils (%) (Auto) 0% (0-3) 0% (0-3) Basophils (%) (Auto) 1% (0-3) 1% (0-3) Neutrophils # (Auto) 8.4x10^3uL (1.8-7.7) 3.7x10^3uL (1.8-7.7) Lymphocytes # (Auto) 0.1x10^3/uL (1.0-4.8) 0.1x10^3/uL (1.0-4.8) Monocytes # (Auto) 0.1x10^3/uL (0.0-1.1) 0.1x10^3/uL (0.0-1.1) Eosinophils # (Auto) 0.0x10^3/uL (0.0-0.7) 0.0x10^3/uL (0.0-0.7) Basophils # (Auto) 0.1x10^3/uL (0.0-0.2) 0.0x10^3/uL (0.0-0.2) Segmented Neutrophils % 34% (35-66) Band Neutrophils % 60% (0-9) Lymphocytes % 2% (24-48) Monocytes % 1% (0-10) Metamyelocytes % 3% (0-0) Platelet Estimate Adequate (ADEQUATE) Polychromasia Slight Anisocytosis Slight Sodium Level 137mmol/L (136-145) 142mmol/L (136-145) Potassium Level 4.4mmol/L (3.5-5.1) 3.8mmol/L (3.5-5.1) Chloride Level 106mmol/L (98-107) 111mmol/L (98-107) Carbon Dioxide Level 20mmol/L (21-32) 16mmol/L (21-32) Anion Gap 11 (6-14) 15 (6-14) Blood Urea Nitrogen 14mg/dL (7-20) 32mg/dL (7-20) Creatinine 0.9mg/dL (0.6-1.0) 1.7mg/dL (0.6-1.0) Estimated GFR (Cockcroft-Gault) 77.0 37.0 Glucose Level 119mg/dL (70-99) 116mg/dL (70-99) Calcium Level 8.6mg/dL (8.5-10.1) 8.1mg/dL (8.5-10.1) Magnesium Level 2.4mg/dL (1.8-2.4) Total Bilirubin 1.8mg/dL (0.2-1.0) Direct Bilirubin 1.3mg/dL (0.0-0.2) Aspartate Amino Transf (AST/SGOT) 47U/L (15-37) Alanine Aminotransferase (ALT/SGPT) 23U/L (14-59) Alkaline Phosphatase 238U/L (46-116) Total Protein 6.7g/dL (6.4-8.2) Albumin 1.9g/dL (3.4-5.0) Phosphorus Level 3.9mg/dL (2.6-4.7) O2 Saturation 88% (92-99) Arterial Blood pH 7.23 (7.35-7.45) Arterial Blood pCO2 at Patient Temp 37mmHg (35-46) Arterial Blood pO2 at Patient Temp 65mmHg (65-108) Arterial Blood HCO3 15mmol/L (21-28) Arterial Blood Base Excess -12mmol/L (-3-3) FiO2 28 Laboratory Tests Test 07/30/16 06:55 07/30/16 06:58 07/30/16 11:02 Sodium Level 142mmol/L (136-145) Potassium Level 3.8mmol/L (3.5-5.1) Chloride Level 111mmol/L (98-107) Carbon Dioxide Level 16mmol/L (21-32) Anion Gap 15 (6-14) Blood Urea Nitrogen 32mg/dL (7-20) Creatinine 1.7mg/dL (0.6-1.0) Estimated GFR (Cockcroft-Gault) 37.0 Glucose Level 116mg/dL (70-99) Calcium Level 8.1mg/dL (8.5-10.1) Phosphorus Level 3.9mg/dL (2.6-4.7) White Blood Count 4.0x10^3/uL (4.0-11.0) Red Blood Count 3.49x10^6/uL (3.50-5.40) Hemoglobin 9.3g/dL (12.0-15.5) Hematocrit 28.8% (36.0-47.0) Mean Corpuscular Volume 83fL (79-100) Mean Corpuscular Hemoglobin 27pg (25-35) Mean Corpuscular Hemoglobin Concent 32g/dL (31-37) Red Cell Distribution Width 20.3% (11.5-14.5) Platelet Count 107x10^3/uL (140-400) Neutrophils (%) (Auto) 93% (31-73) Lymphocytes (%) (Auto) 3% (24-48) Monocytes (%) (Auto) 2% (0-9) Eosinophils (%) (Auto) 0% (0-3) Basophils (%) (Auto) 1% (0-3) Neutrophils # (Auto) 3.7x10^3uL (1.8-7.7) Lymphocytes # (Auto) 0.1x10^3/uL (1.0-4.8) Monocytes # (Auto) 0.1x10^3/uL (0.0-1.1) Eosinophils # (Auto) 0.0x10^3/uL (0.0-0.7) Basophils # (Auto) 0.0x10^3/uL (0.0-0.2) O2 Saturation 88% (92-99) Arterial Blood pH 7.23 (7.35-7.45) Arterial Blood pCO2 at Patient Temp 37mmHg (35-46) Arterial Blood pO2 at Patient Temp 65mmHg (65-108) Arterial Blood HCO3 15mmol/L (21-28) Arterial Blood Base Excess -12mmol/L (-3-3) FiO2 28 Microbiology 07/28/16 Blood Culture - Final, Complete 07/15/16 Urine Culture - Final, Complete 07/15/16 Urine Culture Result 1 (ROYA) - Final, Complete 07/15/16 Urine Culture Result 2 (ROYA) - Final, Complete 07/15/16 Antimicrobic Susceptibility - Final, Complete Medications Current Medications Piperacillin Sod/ Tazobactam Sod/ Sodium Chloride (Zosyn/Iv Sodium Chloride 0.9 % 100ml) 100 ml @ 200 mls/hr 1X ONCE IV Last administered on 07/15/16 22:56; Start 07/15/16 at 22:00; Stop 07/15/16 at 22:29; Status DC Fentanyl Citrate 50 mcg 50 mcg PRN Q15MIN PRN IV PAIN GREATER THAN 3/10 Last administered on 07/16/16 00:30; Start 07/15/16 at 21:45; Stop 07/16/16 at 02:00; Status DC Sodium Chloride 1,000 ml @ 1,000 mls/hr 1X ONCE IV Last administered on 21:59; Start 07/15/16 at 22:00; Stop 07/15/16 at 22:59; Status DC Sodium Chloride (Iv Sodium Chloride 0.9% 500ml Bag) 500 ml @ 500 mls/hr 1X ONCE IV Last administered on 07/15/16 22:00; Start 07/15/16 at 22:00; Stop at 22:59; Status DC Ondansetron HCl (Zofran) 4 mg PRN Q8HRS PRN IV NAUSEA/VOMITING; Start 07/15/16 at 23:30; Stop 07/16/16 at 08:52; Status DC Fentanyl Citrate 50 mcg 50 mcg PRN Q2HR PRN IV SEVERE PAIN Last administered on 07/16/16 08:10; Start 07/15/16 at 23:30; Stop 07/16/16 at 08:52; Status DC Sodium Chloride (Iv Sodium Chloride 0.9% 1000ml Bag) 1,000 ml @ 150 mls/hr Q6H40M IV Last administered on 07/15/16 02:00; Start 07/15/16 at 23:45; Stop 07/16/16 at 08:52; Status DC Acetaminophen (Tylenol) 650 mg PRN Q4HRS PRN PO FEVER; Start 07/15/16 at 23:30; Stop 07/16/16 at 23:29; Status DC Info (Do NOT chart on this placeholder) 1 each PRN DAILY PRN MC NEEDS VERIFICATION; Start 07/16/16 at 03:00; Status Cancel Acetaminophen 650 mg 650 mg PRN Q4HRS PRN PO MILD PAIN / TEMP Last administered on 07/28/16 07:42; Start 07/16/16 at 08:45; Stop 07/29/16 at 08:33 ; Status DC Piperacillin Sod/ Tazobactam Sod 3.375 gm/Sodium Chloride 50 ml @ 100 mls/hr Q6HRS IV Last administered on 07/18/16 05:50; Start 07/16/16 at 10:00; Stop 07/18 at 13:28; Status DC Linezolid (Zyvox Premix) 300 ml @ 300 mls/hr Q12HR IV Last administered on 07/18 08:34; Start 07/16/16 at 10:00; Stop 07/18/16 at 13:28; Status DC Hydromorphone HCl (Dilaudid) 2 mg PRN Q4HRS PRN IV MODERATE PAIN Last administered on 07/28/16 23:33; Start 07/16/16 at 08:45 Hydromorphone HCl (Dilaudid) 4 mg PRN Q4HRS PRN IV SEVERE PAIN Last administered on 07/30/16 09:23; Start 07/16/16 at 08:45 Pantoprazole Sodium (Protonix) 40 mg DAILYAC PO Last administered on 07/27/16 11:11; Start 07/16/16 at 09:30; Stop 07/29/16 at 08:44; Status DC Hyoscyamine (Anaspaz) 0.125 mg Q6HRS PO Last administered on 07/20/16 05:20; Start 07/16/16 at 12:00; Stop 07/20/16 at 08:58; Status DC Phenazopyridine HCl (Pyridium) 200 mg TID PO Last administered on 07/20/16 08: 25; Start 07/16/16 at 09:30; Stop 07/20/16 at 08:58; Status DC Lorazepam (Ativan) 0.5 mg PRN BID PRN PO ANXIETY / AGITATION Last administered on 07/29/16 02:16; Start 07/16/16 at 08:45 Simethicone (Gas-X) 80 mg PRN Q4HRS PRN PO GAS / BLOATING Last administered on 07/24/16 22:30; Start 07/16/16 at 08:45 Zolpidem Tartrate 5 mg 5 mg PRN QHS PRN PO INSOMNIA Last administered on 23:14; Start 07/16/16 at 08:45 Potassium Chloride/Dextrose/ Sod Cl 1,000 ml @ 80 mls/hr [id number] IV Last administered on 07/16/16 10:54; Start 07/16/16 at 09:30; Stop 07/16/16 at 21:59; Status DC Fluconazole/ Sodium Chloride (Diflucan 200mg/ 100ml Premix) 100 ml @ 100 mls/ hr Q24H IV Last administered on 07/18/16 11:43; Start 07/16/16 at 11:00; Stop at 13:28; Status DC Info 1 each 1 each PRN DAILY PRN MC SEE COMMENTS Last administered on 09:27; Start 07/16/16 at 10:00 Sodium Chloride 220 meq/Sodium Acetate 90 meq/ Potassium Chloride 50 meq/ Potassium Acetate 15 meq/Potassium Phosphate 10 mmol/ Magnesium Sulfate 50 meq/ Calcium Gluconate 6 meq/ Multivitamins/ Minerals 10 ml/ Chromium/Copper/ Manganese/Seleni/ Zn 1 ml/Total Parenteral Nutrition/Amino Acids/Dextro... 1, 920 ml @ 80 mls/hr TPN CONT IV ; Start 07/16/16 at 22:00; Stop 07/16/16 at 22:00 ; Status DC Sodium Chloride/ Sodium Acetate/ Potassium Chloride/ Potassium Acetate/ Potassium Phosphate/ Magnesium Sulfate/ Calcium Gluconate/ Multivitamins/ Minerals/Chromium/ Copper/Manganese/ Seleni/Zn/Total Parenteral Nutrition/Amino Acids/Dextrose/ Fat Emulsion Intravenous (Sodium Chlori... 1,820 ml @ 75.833 mls/ hr TPN CONT IV Last administered on 07/16/16 21:03; Start 07/16/16 at 22: 00; Stop 07/17/16 at 21:59; Status DC Ondansetron HCl (Zofran) 4 mg PRN Q6HRS PRN IV NAUSEA/VOMITING Last administered on 07/21/16 08:48; Start 07/16/16 at 17:15 Diphenhydramine HCl (Benadryl) 25 mg PRN Q6HRS PRN PO ITCHING Last administered on 07/25/16 23:38; Start 07/16/16 at 17:45 Lidocaine (Xylocaine) 1 sang BID TP Last administered on 07/30/16 08:40; Start 07/17/16 at 09:00 Zinc Oxide 1 sang 1 sang BID TP Last administered on 07/30/16 08:40; Start at 09:30 Sodium Chloride/ Sodium Acetate/ Potassium Chloride/ Potassium Acetate/ Potassium Phosphate/ Magnesium Sulfate/ Calcium Gluconate/ Multivitamins/ Minerals/Chromium/ Copper/Manganese/ Seleni/Zn/Total Parenteral Nutrition/Amino Acids/Dextrose/ Fat Emulsion Intravenous (Sodium Chlori... 1,920 ml @ 80 mls/ hr TPN CONT IV Last administered on 07/17/16 22:13; Start 07/17/16 at 22:00; Stop 07/18/16 at 21:59; Status DC Furosemide 40 mg 40 mg 1X ONCE IVP Last administered on 07/18/16 11:43; Start 07/18/16 at 11:00; Stop 07/18/16 at 11:07; Status DC Sodium Chloride 220 meq/Sodium Acetate 90 meq/ Potassium Chloride 50 meq/ Potassium Acetate 15 meq/Potassium Phosphate 10 mmol/ Magnesium Sulfate 50 meq/ Calcium Gluconate 3 meq/ Multivitamins/ Minerals 10 ml/ Chromium/Copper/ Manganese/Seleni/ Zn 1 ml/Total Parenteral Nutrition/Amino Acids/Dextro... 1, 920 ml @ 80 mls/hr TPN CONT IV Last administered on 07/19/16 00:03; Start 07/18/16 at 22:00; Stop 07/19/16 at 21:59; Status DC Meropenem 1 gm/ Sodium Chloride 100 ml @ 200 mls/hr Q8HRS IV Last administered on 07/20/16 05:21; Start 07/18/16 at 14:00; Stop 07/20/16 at 11:25; Status DC Micafungin Sodium 100 mg/Dextrose 100 ml @ 100 mls/hr Q24H IV Last administered on 07/19/16 15:05; Start 07/18/16 at 14:00; Stop 07/20/16 at 11:25; Status DC Daptomycin/Sodium Chloride (Cubicin/Iv Sodium Chloride 0.9% 50ml) 50 ml @ 100 mls/hr Q24H IV Last administered on 07/19/16 16:56; Start 07/18/16 at 15:00; Stop 07/20/16 at 11:25; Status DC Alteplase, Recombinant (Cathflo) 2 mg 1X ONCE INT CAT Last administered on 07/19 06:24; Start 07/19/16 at 07:00; Stop 07/19/16 at 07:01; Status DC Gentamicin Sulfate 1 each 1 each PRN DAILY PRN MC SEE COMMENTS Last administered on 07/25/16 15:31; Start 07/19/16 at 12:15; Stop 07/25/16 at 16:14 ; Status DC Gentamicin Sulfate/Sodium Chloride (Iv Sodium Chloride 0.9% 100ml) 106.75 ml @ 106.75 mls/hr Q24H IV Last administered on 07/25/16 15:31; Start 07/19/16 at 13 :00; Stop 07/25/16 at 16:12; Status DC Gentamicin Sulfate 1 each 1 each 1X ONCE MC Last administered on 07/19/16 23: 00; Start 07/19/16 at 23:00; Stop 07/19/16 at 23:01; Status DC Sodium Chloride/ Sodium Acetate/ Potassium Chloride/ Potassium Acetate/ Potassium Phosphate/ Magnesium Sulfate/ Calcium Gluconate/ Multivitamins/ Minerals/Chromium/ Copper/Manganese/ Seleni/Zn/Total Parenteral Nutrition/Amino Acids/Dextrose/ Fat Emulsion Intravenous (Sodium Chlori... 1,920 ml @ 80 mls/ hr TPN CONT IV Last administered on 07/19/16 20:51; Start 07/19/16 at 22:00; Stop 07/20/16 at 21:59; Status DC Hyoscyamine (Anaspaz) 0.125 mg PRN Q6HRS PRN PO BLADDER SPASM; Start 07/20/16 at 09:00 Phenazopyridine HCl 200 mg 200 mg PRN TID PRN PO BLADDER SPASM Last administered on 07/21/16 20:14; Start 07/20/16 at 09:00 Linezolid 300 ml @ 300 mls/hr Q12HR IV Last administered on 07/25/16 09:02; Start 07/20/16 at 12:00; Stop 07/25/16 at 16:12; Status DC Sodium Chloride 220 meq/Sodium Acetate 90 meq/ Potassium Chloride 50 meq/ Potassium Acetate 15 meq/Potassium Phosphate 10 mmol/ Magnesium Sulfate 50 meq/ Calcium Gluconate 3 meq/ Multivitamins/ Minerals 10 ml/ Chromium/Copper/ Manganese/Seleni/ Zn 1 ml/Total Parenteral Nutrition/Amino Acids/Dextro... 1, 920 ml @ 80 mls/hr TPN CONT IV Last administered on 07/20/16 21:30; Start 07/20/16 at 22:00; Stop 07/21/16 at 21:59; Status DC Sodium Chloride/ Sodium Acetate/ Potassium Chloride/ Potassium Acetate/ Potassium Phosphate/ Magnesium Sulfate/ Multivitamins/ Minerals/Chromium/ Copper /Manganese/ Seleni/Zn/Total Parenteral Nutrition/Amino Acids/Dextrose/ Fat Emulsion Intravenous (Sodium Chloride/ Potass... 1,920 ml @ 80 mls/hr TPN CONT IV Last administered on 07/21/16 22:05; Start 07/21/16 at 22:00; Stop at 21:59; Status DC Alteplase, Recombinant 2 mg 2 mg PRN DAILY PRN INT CAT INFLAMMATION Last administered on 07/27/16 11:31; Start 07/21/16 at 15:00 Sodium Chloride 220 meq/Sodium Acetate 90 meq/ Potassium Chloride 50 meq/ Potassium Acetate 15 meq/Potassium Phosphate 10 mmol/ Magnesium Sulfate 50 meq/ Multivitamins/ Minerals 10 ml/ Chromium/Copper/ Manganese/Seleni/ Zn 1 ml/Total Parenteral Nutrition/Amino Acids/Dextrose/ Fat Emuls... 1,920 ml @ 80 mls/hr TPN CONT IV Last administered on 07/22/16 20:53; Start 07/22/16 at 22:00; Stop 07/23/16 at 21:59; Status DC Sodium Chloride/ Sodium Acetate/ Potassium Chloride/ Potassium Acetate/ Potassium Phosphate/ Magnesium Sulfate/ Multivitamins/ Minerals/Chromium/ Copper /Manganese/ Seleni/Zn/Total Parenteral Nutrition/Amino Acids/Dextrose/ Fat Emulsion Intravenous (Sodium Chloride/ Potass... 1,920 ml @ 80 mls/hr TPN CONT IV Last administered on 07/23/16 21:16; Start 07/23/16 at 22:00; Stop 07/24 at 21:59; Status DC Gentamicin Sulfate 1 each 1 each 1X ONCE MC ; Start 07/23/16 at 22:00; Stop 07/23 at 22:01; Status Cancel Sodium Chloride/ Sodium Acetate/ Potassium Chloride/ Potassium Acetate/ Potassium Phosphate/ Magnesium Sulfate/ Multivitamins/ Minerals/Chromium/ Copper /Manganese/ Seleni/Zn/Total Parenteral Nutrition/Amino Acids/Dextrose/ Fat Emulsion Intravenous (Sodium Chloride/ Potass... 1,920 ml @ 80 mls/hr TPN CONT IV Last administered on 07/24/16 21:15; Start 07/24/16 at 22:00; Stop 04/30 at 21:59; Status DC Gentamicin Sulfate 1 each 1X ONCE MC ; Start 07/25/16 at 12:30; Stop 07/25/16 at 12:31; Status Cancel Amlodipine Besylate 5 mg 5 mg DAILY PO Last administered on 07/27/16 11:12; Start 07/25/16 at 12:00; Stop 07/29/16 at 08:44; Status DC Sodium Chloride 220 meq/Sodium Acetate 90 meq/ Potassium Chloride 30 meq/ Potassium Acetate 15 meq/Potassium Phosphate 10 mmol/ Magnesium Sulfate 50 meq/ Multivitamins/ Minerals 10 ml/ Chromium/Copper/ Manganese/Seleni/ Zn 1 ml/Total Parenteral Nutrition/Amino Acids/Dextrose/ Fat Emuls... 1,920 ml @ 80 mls/hr TPN CONT IV Last administered on 07/25/16 22:25; Start 07/25/16 at 22:00; Stop 07/26/16 at 21:59; Status DC Sodium Chloride/ Sodium Acetate/ Potassium Chloride/ Potassium Acetate/ Potassium Phosphate/ Magnesium Sulfate/ Multivitamins/ Minerals/Chromium/ Copper /Manganese/ Seleni/Zn/Total Parenteral Nutrition/Amino Acids/Dextrose/ Fat Emulsion Intravenous (Sodium Chloride/ Potass... 1,920 ml @ 80 mls/hr TPN CONT IV Last administered on 07/26/16 23:16; Start 07/26/16 at 22:00; Stop at 21:59; Status DC Furosemide 20 mg 20 mg 1X ONCE IVP Last administered on 07/27/16 11:31; Start 07/27/16 at 09:00; Stop 07/27/16 at 09:01; Status DC Daptomycin 340 mg/ Sodium Chloride 50 ml @ 100 mls/hr Q24H IV Last administered on 07/29/16 15:05; Start 07/27/16 at 13:00; Stop 07/30/16 at 07:25 ; Status DC Piperacillin Sod/ Tazobactam Sod 3.375 gm/Sodium Chloride 50 ml @ 100 mls/hr Q6HRS IV Last administered on 07/30/16 05:30; Start 07/27/16 at 12:30; Stop at 07:25; Status DC Fluconazole/ Sodium Chloride 100 ml @ 100 mls/hr Q24H IV Last administered on 07/28/16 13:32; Start 07/27/16 at 13:00; Stop 07/29/16 at 00:53; Status DC Sodium Chloride 1,000 ml @ 1,000 mls/hr 1X ONCE IV Last administered on 12:34; Start 07/27/16 at 12:30; Stop 07/27/16 at 13:29; Status DC Sodium Chloride 220 meq/Sodium Acetate 90 meq/ Potassium Chloride 30 meq/ Potassium Acetate 15 meq/Potassium Phosphate 10 mmol/ Magnesium Sulfate 45 meq/ Multivitamins/ Minerals 10 ml/ Chromium/Copper/ Manganese/Seleni/ Zn 1 ml/Total Parenteral Nutrition/Amino Acids/Dextrose/ Fat Emuls... 1,920 ml @ 80 mls/hr TPN CONT IV Last administered on 07/27/16 22:38; Start 07/27/16 at 22:00; Stop 07/28/16 at 21:59; Status DC Sodium Chloride (Iv Sodium Chloride 0.9% 1000ml Bag) 1,000 ml @ 45 mls/hr [id number] IV Last administered on 07/28/16 03:24; Start 07/27/16 at 17:00; Stop 07/28/16 at 10:27; Status DC Acetaminophen 650 mg 650 mg PRN Q6HRS PRN HI fever Last administered on 03:57; Start 07/27/16 at 16:30; Stop 07/29/16 at 08:33; Status DC Sodium Chloride 1,000 ml @ 427.5 mls/ hr Q2H21M IV Last administered on 19:30; Start 07/27/16 at 19:30; Stop 07/27/16 at 23:30; Status DC Sodium Chloride 220 meq/Sodium Acetate 90 meq/ Potassium Chloride 30 meq/ Potassium Acetate 15 meq/Potassium Phosphate 10 mmol/ Magnesium Sulfate 45 meq/ Multivitamins/ Minerals 10 ml/ Chromium/Copper/ Manganese/Seleni/ Zn 1 ml/Total Parenteral Nutrition/Amino Acids/Dextrose/ Fat Emuls... 1,920 ml @ 80 mls/hr TPN CONT IV Last administered on 07/28/16 21:43; Start 07/28/16 at 22:00; Stop 07/29/16 at 21:59; Status DC Micafungin Sodium/ Dextrose (Mycamine) 100 ml @ 100 mls/hr Q24H IV Last administered on 07/30/16 00:47; Start 07/29/16 at 01:00 Lorazepam (Ativan) 0.05 mg PRN Q4HRS PRN IV ANXIETY / AGITATION; Start at 02:30; Stop 07/29/16 at 02:48; Status DC Lorazepam (Ativan) 0.5 mg PRN Q4HRS PRN IV ANXIETY / AGITATION Last administered on 07/29/16 03:18; Start 07/29/16 at 03:00 Acetaminophen (Tylenol) 650 mg PRN Q4HRS PRN HI MILD PAIN / TEMP; Start at 08:30 Ketorolac Tromethamine (Toradol) 30 mg PRN Q6HRS PRN IV PAIN/FEVER Last administered on 07/30/16 00:50; Start 07/29/16 at 08:30; Stop 08/03/16 at 08:29 Pantoprazole Sodium 40 mg 40 mg DAILYAC IVP Last administered on 07/30/16 08: 40; Start 07/29/16 at 09:00 Sodium Chloride 1,000 ml @ 45 mls/hr [id number] IV Last administered on 08:39; Start 07/29/16 at 08:45 Sodium Chloride/ Sodium Acetate/ Potassium Chloride/ Potassium Acetate/ Potassium Phosphate/ Magnesium Sulfate/ Multivitamins/ Minerals/Chromium/ Copper /Manganese/ Seleni/Zn/Total Parenteral Nutrition/Amino Acids/Dextrose/ Fat Emulsion Intravenous (Sodium Chloride/ Potass... 1,920 ml @ 80 mls/hr TPN CONT IV Last administered on 07/29/16 22:06; Start 07/29/16 at 22:00; Stop at 21:59 Lidocaine/Sodium Bicarbonate 20 ml 20 ml STK-MED ONCE IJ ; Start 07/29/16 at 13: 13; Stop 07/29/16 at 13:14; Status DC Heparin Sodium/ Sodium Chloride 500 ml @ As Directed STK-MED ONCE .ROUTE ; Start 07/29/16 at 13:13; Stop 07/29/16 at 13:14; Status DC Lidocaine/ Epinephrine (Xylocaine 1%-Epi 1:100,000) 20 ml STK-MED ONCE .ROUTE ; Start 07/29/16 at 13:22; Stop 07/29/16 at 13:23; Status DC Midazolam HCl (Versed) 5 mg STK-MED ONCE .ROUTE ; Start 07/29/16 at 13:32; Stop 07/29/16 at 13:33; Status DC Fentanyl Citrate (Fentanyl 5ml Vial) 250 mcg STK-MED ONCE .ROUTE ; Start at 13:32; Stop 07/29/16 at 13:33; Status DC Heparin Sodium/ Sodium Chloride 1,000 unit 1X ONCE IART Last administered on 13:45; Start 07/29/16 at 13:45; Stop 07/29/16 at 13:48; Status DC Midazolam HCl (Versed) 5 mg 1X ONCE IV Last administered on 07/29/16 13:45; Start 07/29/16 at 13:45; Stop 07/29/16 at 13:48; Status DC Fentanyl Citrate (Fentanyl 5ml Vial) 250 mcg 1X ONCE IV Last administered on 13:45; Start 07/29/16 at 13:45; Stop 07/29/16 at 13:48; Status DC Lidocaine/ Epinephrine 20 ml 20 ml 1X ONCE IJ Last administered on 07/29/16 13:45; Start 07/29/16 at 13:45; Stop 07/29/16 at 13:48; Status DC Sodium Chloride 220 meq/Sodium Acetate 90 meq/ Potassium Chloride 15 meq/ Potassium Acetate 30 meq/Potassium Phosphate 10 mmol/ Magnesium Sulfate 45 meq/ Multivitamins/ Minerals 10 ml/ Chromium/Copper/ Manganese/Seleni/ Zn 1 ml/Total Parenteral Nutrition/Amino Acids/Dextrose/ Fat Emuls... 1,920 ml @ 80 mls/hr TPN CONT IV ; Start 07/30/16 at 22:00; Stop 07/31/16 at 21:59 Norepinephrine Bitartrate 8 mg/ Sodium Chloride 258 ml @ 1.93 mls/hr 1X ONCE IV Last administered on 07/30/16 11:17; Start 07/30/16 at 11:15; Stop at 00:55 Norepinephrine Bitartrate/Sodium Chloride (Levophed Vial/ Iv Sodium Chloride 0.9 % 250ml) 258 ml @ 0 mls/hr CONT PRN IV SEE I/O RECORD; Start 07/30/16 at 11:15 Furosemide (Lasix) 60 mg 1X ONCE IVP Last administered on 07/30/16 11:14; Start 07/30/16 at 11:15; Stop 07/30/16 at 11:16; Status DC Active Scripts Active Dilaudid (Hydromorphone Hcl) 4 Mg Tablet 4 Mg PO Q6HRS Phenazopyridine Hcl 200 Mg Tablet 200 Mg PO PRN TID PRN FENTANYL 50mcg/hr (Fentanyl) 1 Each Patch.td72 1 Patch TD Q3DAYS Anaspaz (Hyoscyamine Sulfate) 0.125 Mg Tab.rapdis 0.125 Mg PO Q6HRS PRN Cefpodoxime Proxetil 200 Mg Tablet 200 Mg PO BID Sertraline Hcl 50 Mg Tablet 100 Mg PO DAILY 30 Days Protonix (Pantoprazole Sodium) 40 Mg Tablet.dr 1 Tab PO DAILY Zinc Oxide 56.7 Gm Oint...g. 1 Sang TP BID Lidocaine 35.44 Gm Oint...g. 1 Sang TP BID Ondansetron Odt (Ondansetron) 4 Mg Tab.rapdis 8 Mg PO PRN Q8HRS PRN Gas-X (Simethicone) 80 Mg Tab.chew 80 Mg PO PRN QID PRN Reported Lorazepam 0.5 Mg Tablet 0.5 Mg PO PRN BID PRN Vitals/I & O Vital Sign - Last 24 Hours 07/29/16 07/29/16 07/29/16 07/29/16 13:45 14:34 15:00 15:00 Pulse 95 102 Resp 16 16 29 B/P 98/55 Pulse Ox 97 96 96 O2 Delivery Nasal Cannula Room Air Room Air Room Air O2 Flow Rate 2.0 07/29/16 07/29/16 07/29/16 07/29/16 15:15 15:30 15:45 16:00 Temp 97.5 97.5 Pulse 102 100 100 100 Resp 24 23 26 25 B/P 86/57 87/57 83/55 86/51 Pulse Ox 94 94 97 97 O2 Delivery Room Air Room Air Room Air Room Air 07/29/16 07/29/16 07/29/16 07/29/16 16:00 16:15 16:30 16:55 Pulse 102 104 Resp 23 25 B/P 112/56 102/75 Pulse Ox 96 96 O2 Delivery Room Air Room Air Room Air Room Air 07/29/16 07/29/16 07/29/16 07/29/16 18:00 19:00 20:00 20:00 Temp 99.3 99.3 Pulse 132 123 120 Resp 28 23 14 B/P 143/80 93/61 93/49 Pulse Ox 64 98 100 O2 Delivery Room Air Room Air Room Air Room Air 07/29/16 07/29/16 07/29/16 07/29/16 21:00 21:04 22:00 23:00 Pulse 126 126 128 Resp 22 38 31 20 B/P 91/52 87/50 110/58 Pulse Ox 97 98 93 94 O2 Delivery Room Air Room Air Room Air Room Air 07/29/16 07/30/16 07/30/16 07/30/16 23:55 00:00 01:00 02:00 Temp 97.4 97.4 Pulse 127 131 121 Resp 20 17 31 B/P 110/55 105/63 82/48 Pulse Ox 95 94 95 O2 Delivery Room Air Room Air Room Air Room Air 07/30/16 07/30/16 07/30/16 07/30/16 03:00 03:11 03:41 04:00 Temp 97.2 97.2 Pulse 109 104 Resp 31 37 21 22 B/P 84/49 80/48 Pulse Ox 95 90 95 O2 Delivery Room Air Room Air Room Air 07/30/16 07/30/16 07/30/16 07/30/16 04:00 05:00 06:00 07:00 Pulse 103 103 102 Resp 24 20 28 B/P 106/42 85/52 94/48 Pulse Ox 97 93 93 O2 Delivery Room Air Room Air Nasal Cannula Nasal Cannula O2 Flow Rate 2.0 2.0 07/30/16 07/30/16 07/30/16 07/30/16 08:00 08:00 09:00 09:23 Pulse 99 102 Resp 27 30 B/P 82/41 81/48 Pulse Ox 91 93 O2 Delivery Room Air Nasal Cannula Nasal Cannula Nasal Cannula O2 Flow Rate 2.0 2.0 2.0 07/30/16 07/30/16 10:00 10:02 Pulse 101 Resp 30 B/P 80/54 Pulse Ox 94 94 O2 Delivery Nasal Cannula Nasal Cannula O2 Flow Rate 2.0 2.0 Intake and Output 07/29/16 07/29/16 07/30/16 15:00 23:00 07:00 Intake Total 50 ml 1573 ml Output Total 551 ml 216 ml Balance -501 ml 1357 ml BENITA LUTZ MD Jul 30, 2016 13:01
[2016-07-30] MEDS ORDERED: SODIUM BICARB ADULT 8.4% 50 MEQ/50 ML DISP.SYRIN. IV ONE ×2 (14:30→22:30)
[2016-07-30] MEDS ORDERED: IV 1/2 NORMAL SALINE 500 ML IV SCH (14:30)
[2016-07-30] MEDS ORDERED: ONDANSETRON PF 4 MG/2 ML VIAL. IV PRN (14:30)
[2016-07-30] MEDS: ALBUMIN HUMAN 25% 100 ML IV SCH ×2 (14:30→22:21)
--- NOTE | 2016-07-30 14:40 | PDOC ---
PULMONARY PROGRESS NOTES Vitals Vital Signs Date Time Temp Pulse Resp B/P Pulse Ox O2 Delivery O2 Flow Rate FiO2 07/30/16 10:02 94 Nasal Cannula 2.0 07/30/16 10:00 101 30 80/54 07/30/16 04:00 97.2 97.2 Labs Laboratory Tests Test 07/29/16 05:30 07/30/16 06:55 07/30/16 06:58 07/30/16 11:02 White Blood Count 8.7x10^3/uL (4.0-11.0) 4.0x10^3/uL (4.0-11.0) Red Blood Count 3.75x10^6/uL (3.50-5.40) 3.49x10^6/uL (3.50-5.40) Hemoglobin 9.8g/dL (12.0-15.5) 9.3g/dL (12.0-15.5) Hematocrit 30.4% (36.0-47.0) 28.8% (36.0-47.0) Mean Corpuscular Volume 81fL (79-100) 83fL (79-100) Mean Corpuscular Hemoglobin 26pg (25-35) 27pg (25-35) Mean Corpuscular Hemoglobin Concent 32g/dL (31-37) 32g/dL (31-37) Red Cell Distribution Width 19.7% (11.5-14.5) 20.3% (11.5-14.5) Platelet Count 213x10^3/uL (140-400) 107x10^3/uL (140-400) Neutrophils (%) (Auto) 96% (31-73) 93% (31-73) Lymphocytes (%) (Auto) 2% (24-48) 3% (24-48) Monocytes (%) (Auto) 1% (0-9) 2% (0-9) Eosinophils (%) (Auto) 0% (0-3) 0% (0-3) Basophils (%) (Auto) 1% (0-3) 1% (0-3) Neutrophils # (Auto) 8.4x10^3uL (1.8-7.7) 3.7x10^3uL (1.8-7.7) Lymphocytes # (Auto) 0.1x10^3/uL (1.0-4.8) 0.1x10^3/uL (1.0-4.8) Monocytes # (Auto) 0.1x10^3/uL (0.0-1.1) 0.1x10^3/uL (0.0-1.1) Eosinophils # (Auto) 0.0x10^3/uL (0.0-0.7) 0.0x10^3/uL (0.0-0.7) Basophils # (Auto) 0.1x10^3/uL (0.0-0.2) 0.0x10^3/uL (0.0-0.2) Segmented Neutrophils % 34% (35-66) Band Neutrophils % 60% (0-9) Lymphocytes % 2% (24-48) Monocytes % 1% (0-10) Metamyelocytes % 3% (0-0) Platelet Estimate Adequate (ADEQUATE) Polychromasia Slight Anisocytosis Slight Sodium Level 137mmol/L (136-145) 142mmol/L (136-145) Potassium Level 4.4mmol/L (3.5-5.1) 3.8mmol/L (3.5-5.1) Chloride Level 106mmol/L (98-107) 111mmol/L (98-107) Carbon Dioxide Level 20mmol/L (21-32) 16mmol/L (21-32) Anion Gap 11 (6-14) 15 (6-14) Blood Urea Nitrogen 14mg/dL (7-20) 32mg/dL (7-20) Creatinine 0.9mg/dL (0.6-1.0) 1.7mg/dL (0.6-1.0) Estimated GFR (Cockcroft-Gault) 77.0 37.0 Glucose Level 119mg/dL (70-99) 116mg/dL (70-99) Calcium Level 8.6mg/dL (8.5-10.1) 8.1mg/dL (8.5-10.1) Magnesium Level 2.4mg/dL (1.8-2.4) Total Bilirubin 1.8mg/dL (0.2-1.0) Direct Bilirubin 1.3mg/dL (0.0-0.2) Aspartate Amino Transf (AST/SGOT) 47U/L (15-37) Alanine Aminotransferase (ALT/SGPT) 23U/L (14-59) Alkaline Phosphatase 238U/L (46-116) Total Protein 6.7g/dL (6.4-8.2) Albumin 1.9g/dL (3.4-5.0) Phosphorus Level 3.9mg/dL (2.6-4.7) O2 Saturation 88% (92-99) Arterial Blood pH 7.23 (7.35-7.45) Arterial Blood pCO2 at Patient Temp 37mmHg (35-46) Arterial Blood pO2 at Patient Temp 65mmHg (65-108) Arterial Blood HCO3 15mmol/L (21-28) Arterial Blood Base Excess -12mmol/L (-3-3) FiO2 28 Test 07/30/16 13:25 Lactic Acid Level 3.3mmol/L (0.4-2.0) Laboratory Tests Test 07/30/16 06:55 07/30/16 06:58 07/30/16 11:02 07/30/16 13:25 Sodium Level 142mmol/L (136-145) Potassium Level 3.8mmol/L (3.5-5.1) Chloride Level 111mmol/L (98-107) Carbon Dioxide Level 16mmol/L (21-32) Anion Gap 15 (6-14) Blood Urea Nitrogen 32mg/dL (7-20) Creatinine 1.7mg/dL (0.6-1.0) Estimated GFR (Cockcroft-Gault) 37.0 Glucose Level 116mg/dL (70-99) Calcium Level 8.1mg/dL (8.5-10.1) Phosphorus Level 3.9mg/dL (2.6-4.7) White Blood Count 4.0x10^3/uL (4.0-11.0) Red Blood Count 3.49x10^6/uL (3.50-5.40) Hemoglobin 9.3g/dL (12.0-15.5) Hematocrit 28.8% (36.0-47.0) Mean Corpuscular Volume 83fL (79-100) Mean Corpuscular Hemoglobin 27pg (25-35) Mean Corpuscular Hemoglobin Concent 32g/dL (31-37) Red Cell Distribution Width 20.3% (11.5-14.5) Platelet Count 107x10^3/uL (140-400) Neutrophils (%) (Auto) 93% (31-73) Lymphocytes (%) (Auto) 3% (24-48) Monocytes (%) (Auto) 2% (0-9) Eosinophils (%) (Auto) 0% (0-3) Basophils (%) (Auto) 1% (0-3) Neutrophils # (Auto) 3.7x10^3uL (1.8-7.7) Lymphocytes # (Auto) 0.1x10^3/uL (1.0-4.8) Monocytes # (Auto) 0.1x10^3/uL (0.0-1.1) Eosinophils # (Auto) 0.0x10^3/uL (0.0-0.7) Basophils # (Auto) 0.0x10^3/uL (0.0-0.2) O2 Saturation 88% (92-99) Arterial Blood pH 7.23 (7.35-7.45) Arterial Blood pCO2 at Patient Temp 37mmHg (35-46) Arterial Blood pO2 at Patient Temp 65mmHg (65-108) Arterial Blood HCO3 15mmol/L (21-28) Arterial Blood Base Excess -12mmol/L (-3-3) FiO2 28 Lactic Acid Level 3.3mmol/L (0.4-2.0) Medications Active Scripts Medications Dose Route/Sig Days Date Category Dilaudid (Hydromorphone Hcl) 4 Mg Tablet 4 Mg PO Q6HRS 06/29/16 Rx Phenazopyridine Hcl 200 Mg Tablet 200 Mg PO PRN TID PRN 06/29/16 Rx FENTANYL 50mcg/hr (Fentanyl) 1 Each Patch.td72 1 Patch TD Q3DAYS 06/29/16 Rx Anaspaz (Hyoscyamine Sulfate) 0.125 Mg Tab.rapdis 0.125 Mg PO Q6HRS PRN 06/29/16 Rx Cefpodoxime Proxetil 200 Mg Tablet 200 Mg PO BID 06/29/16 Rx Sertraline Hcl 50 Mg Tablet 100 Mg PO DAILY 30 05/12/16 Rx Protonix (Pantoprazole Sodium) 40 Mg Tablet.dr 1 Tab PO DAILY 12/27/15 Rx Zinc Oxide 56.7 Gm Oint...g. 1 Sang TP BID 12/18/15 Rx Lidocaine 35.44 Gm Oint...g. 1 Sang TP BID 12/18/15 Rx Ondansetron Odt (Ondansetron) 4 Mg Tab.rapdis 8 Mg PO PRN Q8HRS PRN 07/03/15 Rx Gas-X (Simethicone) 80 Mg Tab.chew 80 Mg PO PRN QID PRN 09/30/14 Rx Lorazepam 0.5 Mg Tablet 0.5 Mg PO PRN BID PRN 11/08/13 Reported Impression . FULL CONSULT DICTATED ACUTE RESP FAILURE SEC TO SEPSIS AND PULMONARY EDEMA SEE ORDERS WENDI GRAY MD Jul 30, 2016 14:40
[2016-07-30] MEDS ORDERED: LIDOCAINE 2% 20 ML VIAL. ONE (14:49)
[2016-07-30] MEDS ORDERED: MIDAZOLAM HCL 2 MG/2 ML VIAL. ONE (15:19)
[2016-07-30] MEDS ORDERED: MIDAZOLAM HCL 2 MG/2 ML VIAL. IV ONE (15:45)
[2016-07-30] MEDS ORDERED: LIDOCAINE 2% 20 ML VIAL. IJ ONE (15:45)
--- NOTE | 2016-07-30 16:05 | CARD ---
APPROVED REPORT EXAM: Two-dimensional and M-mode echocardiogram with Doppler and color Doppler. Other Information Quality : GoodHR: 102bpm Rhythm : Tachycardia INDICATION Possible CHF, Left ventricular evaluation 2D DIMENSIONS RVDd2.6 (2.9-3.5cm)Left Atrium(2D)3.5 (1.6-4.0cm) IVSd0.9 (0.7-1.1cm)Aortic Root(2D)2.6 (2.0-3.7cm) LVDd3.8 (3.9-5.9cm)LVOT Diameter2.0 (1.8-2.4cm) PWd0.9 (0.7-1.1cm)LVDs2.4 (2.5-4.0cm) FS (%) 38.0 %SV43.2 ml LVEF(%)69.0 (>50%) Aortic Valve AoV Peak Zackary.175.7cm/sAoV VTI29.7cm AO Peak GR.12.3mmHgLVOT Peak Zackary.161.0cm/s AO Mean GR.6mmHgAVA (VMAX)2.78cm2 Mitral Valve MV E Amwfqhlg068.3cm/sMV E Peak Gr.8mmHg MV DECEL [id number] A Dfiaswkk988.4cm/s MV E Mean Gr.4mmHgE/A Ratio0.8 MV A [id number] Pulmonary Valve PV Peak Ttfnszbb964.4cm/s Tricuspid Valve TR P. Vpxshlna012sj/sRAP [id number] TR Peak Gr.84keAkEZPB72frBq Pulmonary Vein S1 Dizzdklg43.7cm/sD2 Jmtoyajw07.2cm/s PVa [id number] LEFT VENTRICLE The left ventricle is normal size. There is normal left ventricular wall thickness. The left ventricu lar systolic function is normal and the ejection fraction is within normal range. The Ejection Fracti on is 69%. There is normal LV segmental wall motion. Transmitral Doppler flow pattern is Grade I-abno rmal relaxation pattern. RIGHT VENTRICLE The right ventricle is normal size. There is normal right ventricular wall thickness. The right ventr icular systolic function is normal. ATRIA The left atrium is mildly dilated. The right atrium size is normal. The interatrial septum is intact with no evidence for an atrial septal defect or patent foramen ovale as noted on 2-D or Doppler imagi ng. AORTIC VALVE The aortic valve is mildly sclerotic. Doppler and Color Flow revealed no significant aortic regurgita tion. There is no significant aortic valvular stenosis. MITRAL VALVE Mitral annular calcification is mild. The mitral valve leaflets are thickened. There is no evidence o f mitral valve prolapse. There is no mitral valve stenosis. Doppler and Color Flow revealed no mitral valve regurgitation noted. TRICUSPID VALVE Doppler and Color Flow revealed trace tricuspid regurgitation. The pulmonary artery systolic pressure is estimated at 34 mmHg. There is mild pulmonary hypertension. PULMONIC VALVE The pulmonary valve is normal in structure and function. Doppler and Color Flow revealed no pulmonic valvular regurgitation. GREAT VESSELS The aortic root is normal in size. The ascending aorta is normal in size. The pulmonary artery is nor mal. The IVC is normal in size and collapses >50% with inspiration. PERICARDIAL EFFUSION There is no evidence of significant pericardial effusion. Critical Notification Critical Value: No <Conclusion> The left ventricular systolic function is normal and the ejection fraction is within normal range. The Ejection Fraction is 69%. The right ventricle is normal size. The left atrium is mildly dilated. The right atrium size is normal. The aortic valve is mildly sclerotic. Mitral annular calcification is mild. The mitral valve leaflets are thickened. Doppler and Color Flow revealed trace tricuspid regurgitation. The pulmonary artery systolic pressure is estimated at 34 mmHg. There is mild pulmonary hypertension. The pulmonary valve is normal in structure and function. There is no evidence of significant pericardial effusion.
--- NOTE | 2016-07-30 16:25 | PDOC2 ---
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 She was transferred to the ICU on 07/30/16 for respiratory distress and renal failure in the setting of sepsis. Cardiology was consulted for evaluation of possible acute congestive heart failure. Past Medical History Cardiovascular: CAD, HTN, Other ( left upper extremity deep venous thrombosis) GI: Diverticulosis (diverticulitis) Heme/Onc: Cancer ( cervical, status-post hysterectomy) Psych: Anxiety, Depression Musculoskeletal: Osteoarthritis Infectious disease: Other ( fistulas as described above) Renal/: Chronic renal insuff, UTI Endocrine: Hypothyroidism Past Surgical History Past Surgical History: Tonsillectomy, Hysterectomy, Other ( bowel resections, bilateral hip fracture repair, multiple attempts to repair fistulas) Family History Family History: Cancer, Diabetes, Hypertension Social History ALCOHOL: none Drugs: None Lives: Alone Current Problem List Problem List Problems Medical Problems: (1) Abdominal pain Status: Acute (2) Enterocutaneous fistula Status: Acute (3) Sepsis Status: Acute (4) Urinary tract infection Status: Acute (5) UTI (urinary tract infection) Status: Acute Current Medications Current Medications Current Medications Piperacillin Sod/ Tazobactam Sod/ Sodium Chloride (Zosyn/Iv Sodium Chloride 0.9 % 100ml) 100 ml @ 200 mls/hr 1X ONCE IV Last administered on 07/15/16 22:56; Start 07/15/16 at 22:00; Stop 07/15/16 at 22:29; Status DC Fentanyl Citrate 50 mcg 50 mcg PRN Q15MIN PRN IV PAIN GREATER THAN 3/10 Last administered on 07/16/16 00:30; Start 07/15/16 at 21:45; Stop 07/16/16 at 02:00; Status DC Sodium Chloride 1,000 ml @ 1,000 mls/hr 1X ONCE IV Last administered on 21:59; Start 07/15/16 at 22:00; Stop 07/15/16 at 22:59; Status DC Sodium Chloride (Iv Sodium Chloride 0.9% 500ml Bag) 500 ml @ 500 mls/hr 1X ONCE IV Last administered on 07/15/16 22:00; Start 07/15/16 at 22:00; Stop at 22:59; Status DC Ondansetron HCl (Zofran) 4 mg PRN Q8HRS PRN IV NAUSEA/VOMITING; Start 07/15/16 at 23:30; Stop 07/16/16 at 08:52; Status DC Fentanyl Citrate 50 mcg 50 mcg PRN Q2HR PRN IV SEVERE PAIN Last administered on 07/16/16 08:10; Start 07/15/16 at 23:30; Stop 07/16/16 at 08:52; Status DC Sodium Chloride (Iv Sodium Chloride 0.9% 1000ml Bag) 1,000 ml @ 150 mls/hr Q6H40M IV Last administered on 07/15/16 02:00; Start 07/15/16 at 23:45; Stop 07/16/16 at 08:52; Status DC Acetaminophen (Tylenol) 650 mg PRN Q4HRS PRN PO FEVER; Start 07/15/16 at 23:30; Stop 07/16/16 at 23:29; Status DC Info (Do NOT chart on this placeholder) 1 each PRN DAILY PRN MC NEEDS VERIFICATION; Start 07/16/16 at 03:00; Status Cancel Acetaminophen 650 mg 650 mg PRN Q4HRS PRN PO MILD PAIN / TEMP Last administered on 07/28/16 07:42; Start 07/16/16 at 08:45; Stop 07/29/16 at 08:33 ; Status DC Piperacillin Sod/ Tazobactam Sod 3.375 gm/Sodium Chloride 50 ml @ 100 mls/hr Q6HRS IV Last administered on 07/18/16 05:50; Start 07/16/16 at 10:00; Stop 07/18 at 13:28; Status DC Linezolid (Zyvox Premix) 300 ml @ 300 mls/hr Q12HR IV Last administered on 07/18 08:34; Start 07/16/16 at 10:00; Stop 07/18/16 at 13:28; Status DC Hydromorphone HCl (Dilaudid) 2 mg PRN Q4HRS PRN IV MODERATE PAIN Last administered on 07/28/16 23:33; Start 07/16/16 at 08:45 Hydromorphone HCl (Dilaudid) 4 mg PRN Q4HRS PRN IV SEVERE PAIN Last administered on 07/30/16 09:23; Start 07/16/16 at 08:45 Pantoprazole Sodium (Protonix) 40 mg DAILYAC PO Last administered on 07/27/16 11:11; Start 07/16/16 at 09:30; Stop 07/29/16 at 08:44; Status DC Hyoscyamine (Anaspaz) 0.125 mg Q6HRS PO Last administered on 07/20/16 05:20; Start 07/16/16 at 12:00; Stop 07/20/16 at 08:58; Status DC Phenazopyridine HCl (Pyridium) 200 mg TID PO Last administered on 07/20/16 08: 25; Start 07/16/16 at 09:30; Stop 07/20/16 at 08:58; Status DC Lorazepam (Ativan) 0.5 mg PRN BID PRN PO ANXIETY / AGITATION Last administered on 07/29/16 02:16; Start 07/16/16 at 08:45 Simethicone (Gas-X) 80 mg PRN Q4HRS PRN PO GAS / BLOATING Last administered on 07/24/16 22:30; Start 07/16/16 at 08:45 Zolpidem Tartrate 5 mg 5 mg PRN QHS PRN PO INSOMNIA Last administered on 23:14; Start 07/16/16 at 08:45 Potassium Chloride/Dextrose/ Sod Cl 1,000 ml @ 80 mls/hr [id number] IV Last administered on 07/16/16 10:54; Start 07/16/16 at 09:30; Stop 07/16/16 at 21:59; Status DC Fluconazole/ Sodium Chloride (Diflucan 200mg/ 100ml Premix) 100 ml @ 100 mls/ hr Q24H IV Last administered on 07/18/16 11:43; Start 07/16/16 at 11:00; Stop at 13:28; Status DC Info 1 each 1 each PRN DAILY PRN MC SEE COMMENTS Last administered on 09:27; Start 07/16/16 at 10:00 Sodium Chloride 220 meq/Sodium Acetate 90 meq/ Potassium Chloride 50 meq/ Potassium Acetate 15 meq/Potassium Phosphate 10 mmol/ Magnesium Sulfate 50 meq/ Calcium Gluconate 6 meq/ Multivitamins/ Minerals 10 ml/ Chromium/Copper/ Manganese/Seleni/ Zn 1 ml/Total Parenteral Nutrition/Amino Acids/Dextro... 1, 920 ml @ 80 mls/hr TPN CONT IV ; Start 07/16/16 at 22:00; Stop 07/16/16 at 22:00 ; Status DC Sodium Chloride/ Sodium Acetate/ Potassium Chloride/ Potassium Acetate/ Potassium Phosphate/ Magnesium Sulfate/ Calcium Gluconate/ Multivitamins/ Minerals/Chromium/ Copper/Manganese/ Seleni/Zn/Total Parenteral Nutrition/Amino Acids/Dextrose/ Fat Emulsion Intravenous (Sodium Chlori... 1,820 ml @ 75.833 mls/ hr TPN CONT IV Last administered on 07/16/16 21:03; Start 07/16/16 at 22: 00; Stop 07/17/16 at 21:59; Status DC Ondansetron HCl (Zofran) 4 mg PRN Q6HRS PRN IV NAUSEA/VOMITING Last administered on 07/21/16 08:48; Start 07/16/16 at 17:15 Diphenhydramine HCl (Benadryl) 25 mg PRN Q6HRS PRN PO ITCHING Last administered on 07/25/16 23:38; Start 07/16/16 at 17:45 Lidocaine (Xylocaine) 1 sang BID TP Last administered on 07/30/16 08:40; Start 07/17/16 at 09:00 Zinc Oxide 1 sang 1 sang BID TP Last administered on 07/30/16 08:40; Start at 09:30 Sodium Chloride/ Sodium Acetate/ Potassium Chloride/ Potassium Acetate/ Potassium Phosphate/ Magnesium Sulfate/ Calcium Gluconate/ Multivitamins/ Minerals/Chromium/ Copper/Manganese/ Seleni/Zn/Total Parenteral Nutrition/Amino Acids/Dextrose/ Fat Emulsion Intravenous (Sodium Chlori... 1,920 ml @ 80 mls/ hr TPN CONT IV Last administered on 07/17/16 22:13; Start 07/17/16 at 22:00; Stop 07/18/16 at 21:59; Status DC Furosemide 40 mg 40 mg 1X ONCE IVP Last administered on 07/18/16 11:43; Start 07/18/16 at 11:00; Stop 07/18/16 at 11:07; Status DC Sodium Chloride 220 meq/Sodium Acetate 90 meq/ Potassium Chloride 50 meq/ Potassium Acetate 15 meq/Potassium Phosphate 10 mmol/ Magnesium Sulfate 50 meq/ Calcium Gluconate 3 meq/ Multivitamins/ Minerals 10 ml/ Chromium/Copper/ Manganese/Seleni/ Zn 1 ml/Total Parenteral Nutrition/Amino Acids/Dextro... 1, 920 ml @ 80 mls/hr TPN CONT IV Last administered on 07/19/16 00:03; Start 07/18/16 at 22:00; Stop 07/19/16 at 21:59; Status DC Meropenem 1 gm/ Sodium Chloride 100 ml @ 200 mls/hr Q8HRS IV Last administered on 07/20/16 05:21; Start 07/18/16 at 14:00; Stop 07/20/16 at 11:25; Status DC Micafungin Sodium 100 mg/Dextrose 100 ml @ 100 mls/hr Q24H IV Last administered on 07/19/16 15:05; Start 07/18/16 at 14:00; Stop 07/20/16 at 11:25; Status DC Daptomycin/Sodium Chloride (Cubicin/Iv Sodium Chloride 0.9% 50ml) 50 ml @ 100 mls/hr Q24H IV Last administered on 07/19/16 16:56; Start 07/18/16 at 15:00; Stop 07/20/16 at 11:25; Status DC Alteplase, Recombinant (Cathflo) 2 mg 1X ONCE INT CAT Last administered on 07/19 06:24; Start 07/19/16 at 07:00; Stop 07/19/16 at 07:01; Status DC Gentamicin Sulfate 1 each 1 each PRN DAILY PRN MC SEE COMMENTS Last administered on 07/25/16 15:31; Start 07/19/16 at 12:15; Stop 07/25/16 at 16:14 ; Status DC Gentamicin Sulfate/Sodium Chloride (Iv Sodium Chloride 0.9% 100ml) 106.75 ml @ 106.75 mls/hr Q24H IV Last administered on 07/25/16 15:31; Start 07/19/16 at 13 :00; Stop 07/25/16 at 16:12; Status DC Gentamicin Sulfate 1 each 1 each 1X ONCE MC Last administered on 07/19/16 23: 00; Start 07/19/16 at 23:00; Stop 07/19/16 at 23:01; Status DC Sodium Chloride/ Sodium Acetate/ Potassium Chloride/ Potassium Acetate/ Potassium Phosphate/ Magnesium Sulfate/ Calcium Gluconate/ Multivitamins/ Minerals/Chromium/ Copper/Manganese/ Seleni/Zn/Total Parenteral Nutrition/Amino Acids/Dextrose/ Fat Emulsion Intravenous (Sodium Chlori... 1,920 ml @ 80 mls/ hr TPN CONT IV Last administered on 07/19/16 20:51; Start 07/19/16 at 22:00; Stop 07/20/16 at 21:59; Status DC Hyoscyamine (Anaspaz) 0.125 mg PRN Q6HRS PRN PO BLADDER SPASM; Start 07/20/16 at 09:00 Phenazopyridine HCl 200 mg 200 mg PRN TID PRN PO BLADDER SPASM Last administered on 07/21/16 20:14; Start 07/20/16 at 09:00 Linezolid 300 ml @ 300 mls/hr Q12HR IV Last administered on 07/25/16 09:02; Start 07/20/16 at 12:00; Stop 07/25/16 at 16:12; Status DC Sodium Chloride 220 meq/Sodium Acetate 90 meq/ Potassium Chloride 50 meq/ Potassium Acetate 15 meq/Potassium Phosphate 10 mmol/ Magnesium Sulfate 50 meq/ Calcium Gluconate 3 meq/ Multivitamins/ Minerals 10 ml/ Chromium/Copper/ Manganese/Seleni/ Zn 1 ml/Total Parenteral Nutrition/Amino Acids/Dextro... 1, 920 ml @ 80 mls/hr TPN CONT IV Last administered on 07/20/16 21:30; Start 07/20/16 at 22:00; Stop 07/21/16 at 21:59; Status DC Sodium Chloride/ Sodium Acetate/ Potassium Chloride/ Potassium Acetate/ Potassium Phosphate/ Magnesium Sulfate/ Multivitamins/ Minerals/Chromium/ Copper /Manganese/ Seleni/Zn/Total Parenteral Nutrition/Amino Acids/Dextrose/ Fat Emulsion Intravenous (Sodium Chloride/ Potass... 1,920 ml @ 80 mls/hr TPN CONT IV Last administered on 07/21/16 22:05; Start 07/21/16 at 22:00; Stop at 21:59; Status DC Alteplase, Recombinant 2 mg 2 mg PRN DAILY PRN INT CAT INFLAMMATION Last administered on 07/27/16 11:31; Start 07/21/16 at 15:00 Sodium Chloride 220 meq/Sodium Acetate 90 meq/ Potassium Chloride 50 meq/ Potassium Acetate 15 meq/Potassium Phosphate 10 mmol/ Magnesium Sulfate 50 meq/ Multivitamins/ Minerals 10 ml/ Chromium/Copper/ Manganese/Seleni/ Zn 1 ml/Total Parenteral Nutrition/Amino Acids/Dextrose/ Fat Emuls... 1,920 ml @ 80 mls/hr TPN CONT IV Last administered on 07/22/16 20:53; Start 07/22/16 at 22:00; Stop 07/23/16 at 21:59; Status DC Sodium Chloride/ Sodium Acetate/ Potassium Chloride/ Potassium Acetate/ Potassium Phosphate/ Magnesium Sulfate/ Multivitamins/ Minerals/Chromium/ Copper /Manganese/ Seleni/Zn/Total Parenteral Nutrition/Amino Acids/Dextrose/ Fat Emulsion Intravenous (Sodium Chloride/ Potass... 1,920 ml @ 80 mls/hr TPN CONT IV Last administered on 07/23/16 21:16; Start 07/23/16 at 22:00; Stop 07/24 at 21:59; Status DC Gentamicin Sulfate 1 each 1 each 1X ONCE MC ; Start 07/23/16 at 22:00; Stop 07/23 at 22:01; Status Cancel Sodium Chloride/ Sodium Acetate/ Potassium Chloride/ Potassium Acetate/ Potassium Phosphate/ Magnesium Sulfate/ Multivitamins/ Minerals/Chromium/ Copper /Manganese/ Seleni/Zn/Total Parenteral Nutrition/Amino Acids/Dextrose/ Fat Emulsion Intravenous (Sodium Chloride/ Potass... 1,920 ml @ 80 mls/hr TPN CONT IV Last administered on 07/24/16 21:15; Start 07/24/16 at 22:00; Stop 04/30 at 21:59; Status DC Gentamicin Sulfate 1 each 1X ONCE MC ; Start 07/25/16 at 12:30; Stop 07/25/16 at 12:31; Status Cancel Amlodipine Besylate 5 mg 5 mg DAILY PO Last administered on 07/27/16 11:12; Start 07/25/16 at 12:00; Stop 07/29/16 at 08:44; Status DC Sodium Chloride 220 meq/Sodium Acetate 90 meq/ Potassium Chloride 30 meq/ Potassium Acetate 15 meq/Potassium Phosphate 10 mmol/ Magnesium Sulfate 50 meq/ Multivitamins/ Minerals 10 ml/ Chromium/Copper/ Manganese/Seleni/ Zn 1 ml/Total Parenteral Nutrition/Amino Acids/Dextrose/ Fat Emuls... 1,920 ml @ 80 mls/hr TPN CONT IV Last administered on 07/25/16 22:25; Start 07/25/16 at 22:00; Stop 07/26/16 at 21:59; Status DC Sodium Chloride/ Sodium Acetate/ Potassium Chloride/ Potassium Acetate/ Potassium Phosphate/ Magnesium Sulfate/ Multivitamins/ Minerals/Chromium/ Copper /Manganese/ Seleni/Zn/Total Parenteral Nutrition/Amino Acids/Dextrose/ Fat Emulsion Intravenous (Sodium Chloride/ Potass... 1,920 ml @ 80 mls/hr TPN CONT IV Last administered on 07/26/16 23:16; Start 07/26/16 at 22:00; Stop at 21:59; Status DC Furosemide 20 mg 20 mg 1X ONCE IVP Last administered on 07/27/16 11:31; Start 07/27/16 at 09:00; Stop 07/27/16 at 09:01; Status DC Daptomycin 340 mg/ Sodium Chloride 50 ml @ 100 mls/hr Q24H IV Last administered on 07/29/16 15:05; Start 07/27/16 at 13:00; Stop 07/30/16 at 07:25 ; Status DC Piperacillin Sod/ Tazobactam Sod 3.375 gm/Sodium Chloride 50 ml @ 100 mls/hr Q6HRS IV Last administered on 07/30/16 05:30; Start 07/27/16 at 12:30; Stop at 07:25; Status DC Fluconazole/ Sodium Chloride 100 ml @ 100 mls/hr Q24H IV Last administered on 07/28/16 13:32; Start 07/27/16 at 13:00; Stop 07/29/16 at 00:53; Status DC Sodium Chloride 1,000 ml @ 1,000 mls/hr 1X ONCE IV Last administered on 12:34; Start 07/27/16 at 12:30; Stop 07/27/16 at 13:29; Status DC Sodium Chloride 220 meq/Sodium Acetate 90 meq/ Potassium Chloride 30 meq/ Potassium Acetate 15 meq/Potassium Phosphate 10 mmol/ Magnesium Sulfate 45 meq/ Multivitamins/ Minerals 10 ml/ Chromium/Copper/ Manganese/Seleni/ Zn 1 ml/Total Parenteral Nutrition/Amino Acids/Dextrose/ Fat Emuls... 1,920 ml @ 80 mls/hr TPN CONT IV Last administered on 07/27/16 22:38; Start 07/27/16 at 22:00; Stop 07/28/16 at 21:59; Status DC Sodium Chloride (Iv Sodium Chloride 0.9% 1000ml Bag) 1,000 ml @ 45 mls/hr [id number] IV Last administered on 07/28/16 03:24; Start 07/27/16 at 17:00; Stop 07/28/16 at 10:27; Status DC Acetaminophen 650 mg 650 mg PRN Q6HRS PRN [place] fever Last administered on 03:57; Start 07/27/16 at 16:30; Stop 07/29/16 at 08:33; Status DC Sodium Chloride 1,000 ml @ 427.5 mls/ hr Q2H21M IV Last administered on 19:30; Start 07/27/16 at 19:30; Stop 07/27/16 at 23:30; Status DC Sodium Chloride 220 meq/Sodium Acetate 90 meq/ Potassium Chloride 30 meq/ Potassium Acetate 15 meq/Potassium Phosphate 10 mmol/ Magnesium Sulfate 45 meq/ Multivitamins/ Minerals 10 ml/ Chromium/Copper/ Manganese/Seleni/ Zn 1 ml/Total Parenteral Nutrition/Amino Acids/Dextrose/ Fat Emuls... 1,920 ml @ 80 mls/hr TPN CONT IV Last administered on 07/28/16 21:43; Start 07/28/16 at 22:00; Stop 07/29/16 at 21:59; Status DC Micafungin Sodium/ Dextrose (Mycamine) 100 ml @ 100 mls/hr Q24H IV Last administered on 07/30/16 00:47; Start 07/29/16 at 01:00 Lorazepam (Ativan) 0.05 mg PRN Q4HRS PRN IV ANXIETY / AGITATION; Start at 02:30; Stop 07/29/16 at 02:48; Status DC Lorazepam (Ativan) 0.5 mg PRN Q4HRS PRN IV ANXIETY / AGITATION Last administered on 07/29/16 03:18; Start 07/29/16 at 03:00 Acetaminophen (Tylenol) 650 mg PRN Q4HRS PRN [place] MILD PAIN / TEMP; Start at 08:30 Ketorolac Tromethamine (Toradol) 30 mg PRN Q6HRS PRN IV PAIN/FEVER Last administered on 07/30/16 00:50; Start 07/29/16 at 08:30; Stop 07/30/16 at 13:01 ; Status DC Pantoprazole Sodium 40 mg 40 mg DAILYAC IVP Last administered on 07/30/16 08: 40; Start 07/29/16 at 09:00 Sodium Chloride 1,000 ml @ 45 mls/hr [id number] IV Last administered on 08:39; Start 07/29/16 at 08:45 Sodium Chloride/ Sodium Acetate/ Potassium Chloride/ Potassium Acetate/ Potassium Phosphate/ Magnesium Sulfate/ Multivitamins/ Minerals/Chromium/ Copper /Manganese/ Seleni/Zn/Total Parenteral Nutrition/Amino Acids/Dextrose/ Fat Emulsion Intravenous (Sodium Chloride/ Potass... 1,920 ml @ 80 mls/hr TPN CONT IV Last administered on 07/29/16 22:06; Start 07/29/16 at 22:00; Stop at 21:59 Lidocaine/Sodium Bicarbonate 20 ml 20 ml STK-MED ONCE IJ ; Start 07/29/16 at 13: 13; Stop 07/29/16 at 13:14; Status DC Heparin Sodium/ Sodium Chloride 500 ml @ As Directed STK-MED ONCE .ROUTE ; Start 07/29/16 at 13:13; Stop 07/29/16 at 13:14; Status DC Lidocaine/ Epinephrine (Xylocaine 1%-Epi 1:100,000) 20 ml STK-MED ONCE .ROUTE ; Start 07/29/16 at 13:22; Stop 07/29/16 at 13:23; Status DC Midazolam HCl (Versed) 5 mg STK-MED ONCE .ROUTE ; Start 07/29/16 at 13:32; Stop 07/29/16 at 13:33; Status DC Fentanyl Citrate (Fentanyl 5ml Vial) 250 mcg STK-MED ONCE .ROUTE ; Start at 13:32; Stop 07/29/16 at 13:33; Status DC Heparin Sodium/ Sodium Chloride 1,000 unit 1X ONCE IART Last administered on 13:45; Start 07/29/16 at 13:45; Stop 07/29/16 at 13:48; Status DC Midazolam HCl (Versed) 5 mg 1X ONCE IV Last administered on 07/29/16 13:45; Start 07/29/16 at 13:45; Stop 07/29/16 at 13:48; Status DC Fentanyl Citrate (Fentanyl 5ml Vial) 250 mcg 1X ONCE IV Last administered on 13:45; Start 07/29/16 at 13:45; Stop 07/29/16 at 13:48; Status DC Lidocaine/ Epinephrine 20 ml 20 ml 1X ONCE IJ Last administered on 07/29/16 13:45; Start 07/29/16 at 13:45; Stop 07/29/16 at 13:48; Status DC Sodium Chloride 220 meq/Sodium Acetate 90 meq/ Potassium Chloride 15 meq/ Potassium Acetate 30 meq/Potassium Phosphate 10 mmol/ Magnesium Sulfate 45 meq/ Multivitamins/ Minerals 10 ml/ Chromium/Copper/ Manganese/Seleni/ Zn 1 ml/Total Parenteral Nutrition/Amino Acids/Dextrose/ Fat Emuls... 1,920 ml @ 80 mls/hr TPN CONT IV ; Start 07/30/16 at 22:00; Stop 07/31/16 at 21:59 Norepinephrine Bitartrate 8 mg/ Sodium Chloride 258 ml @ 1.93 mls/hr 1X ONCE IV Last administered on 07/30/16 11:17; Start 07/30/16 at 11:15; Stop at 15:43; Status DC Norepinephrine Bitartrate/Sodium Chloride (Levophed Vial/ Iv Sodium Chloride 0.9 % 250ml) 258 ml @ 0 mls/hr CONT PRN IV SEE I/O RECORD; Start 07/30/16 at 11:15 Furosemide 60 mg 60 mg 1X ONCE IVP Last administered on 07/30/16 11:14; Start 07/30/16 at 11:15; Stop 07/30/16 at 11:16; Status DC Sodium Chloride 500 ml @ 500 mls/hr Q1H IV ; Start 07/30/16 at 14:30; Stop at 15:29; Status DC Albumin Human 100 ml @ 100 mls/hr Q8HRS IV Last administered on 07/30/16 14: 30; Start 07/30/16 at 14:30; Stop 07/31/16 at 06:59 Furosemide/Sodium Chloride (Lasix Drip/Iv Sodium Chloride 0.9% 100ml) 100 ml @ 0 mls/hr CONT PRN IV SEE I/O RECORD; Start 07/30/16 at 14:30 Ondansetron HCl (Zofran) 8 mg PRN Q8HRS PRN IV NAUSEA/VOMITING Last administered on 07/30/16 14:38; Start 07/30/16 at 14:30 Sodium Bicarbonate 50 meq 50 meq 1X ONCE IV Last administered on 07/30/16 14: 43; Start 07/30/16 at 14:30; Stop 07/30/16 at 14:31; Status DC Heparin Sodium/ Sodium Chloride 500 ml @ As Directed STK-MED ONCE .ROUTE ; Start 07/30/16 at 14:49; Stop 07/30/16 at 14:50; Status DC Lidocaine HCl 20 ml STK-MED ONCE .ROUTE ; Start 07/30/16 at 14:49; Stop at 14:50; Status DC Midazolam HCl (Versed) 2 mg STK-MED ONCE .ROUTE ; Start 07/30/16 at 15:19; Stop 07/30/16 at 15:20; Status DC Heparin Sodium/ Sodium Chloride 1,000 unit 1X ONCE IART Last administered on 15:44; Start 07/30/16 at 15:45; Stop 07/30/16 at 15:46; Status DC Midazolam HCl (Versed) 1.5 mg 1X ONCE IV Last administered on 07/30/16 15:44 ; Start 07/30/16 at 15:45; Stop 07/30/16 at 15:46; Status DC Lidocaine HCl 20 ml 1X ONCE IJ Last administered on 07/30/16 15:44; Start at 15:45; Stop 07/30/16 at 15:46; Status DC Heparin Sodium (Porcine) 10,000 unit STK-MED ONCE .ROUTE ; Start 07/30/16 at 15: 54; Stop 07/30/16 at 15:55; Status DC Active Scripts Active Dilaudid (Hydromorphone Hcl) 4 Mg Tablet 4 Mg PO Q6HRS Phenazopyridine Hcl 200 Mg Tablet 200 Mg PO PRN TID PRN FENTANYL 50mcg/hr (Fentanyl) 1 Each Patch.td72 1 Patch TD Q3DAYS Anaspaz (Hyoscyamine Sulfate) 0.125 Mg Tab.rapdis 0.125 Mg PO Q6HRS PRN Cefpodoxime Proxetil 200 Mg Tablet 200 Mg PO BID Sertraline Hcl 50 Mg Tablet 100 Mg PO DAILY 30 Days Protonix (Pantoprazole Sodium) 40 Mg Tablet.dr 1 Tab PO DAILY Zinc Oxide 56.7 Gm Oint...g. 1 Sang TP BID Lidocaine 35.44 Gm Oint...g. 1 Sang TP BID Ondansetron Odt (Ondansetron) 4 Mg Tab.rapdis 8 Mg PO PRN Q8HRS PRN Gas-X (Simethicone) 80 Mg Tab.chew 80 Mg PO PRN QID PRN Reported Lorazepam 0.5 Mg Tablet 0.5 Mg PO PRN BID PRN Allergies Allergies: Coded Allergies: Iodinated Contrast Media - Oral and (Verified Allergy, Severe, Anaphylaxis , 12/05/15) PT HAS BEEN PREMEDICATED BEFORE WITH NO PROBLEMS, 11-27-14. vancomycin (Verified Allergy, Severe, Swelling, 12/05/15) adhesive tape (Verified Allergy, Intermediate, Rash, 12/05/15) silver (Verified Allergy, Intermediate, Rash, Tegaderm film, can have on abd but no where else, 12/05/15) codeine (Verified Adverse Reaction, Severe, Nausea and Vomiting, 12/11/15) Physical Exam General: Alert, moderate distress Lungs: Other (tachypneic with rate in the 40s/50s with increase work of breathing. Diffuse bilateral rales with pleural fricion rub) Heart: Normal S1, Normal S2, No murmurs, Other (tachycardic with rate in the 100s-120s) Abdomen: Other (abdomin has two fistulas with draining fluids) MUSCULOSKELETAL: Other (No gross focal deficits) Vitals VITALS Vital Signs Date Time Temp Pulse Resp B/P Pulse Ox O2 Delivery O2 Flow Rate FiO2 07/30/16 15:42 116 07/30/16 15:40 39 93 Nasal Cannula 5.0 07/30/16 10:00 80/54 07/30/16 04:00 97.2 97.2 Labs Labs Laboratory Tests Test 07/29/16 05:30 07/30/16 06:55 07/30/16 06:58 07/30/16 11:02 White Blood Count 8.7x10^3/uL (4.0-11.0) 4.0x10^3/uL (4.0-11.0) Red Blood Count 3.75x10^6/uL (3.50-5.40) 3.49x10^6/uL (3.50-5.40) Hemoglobin 9.8g/dL (12.0-15.5) 9.3g/dL (12.0-15.5) Hematocrit 30.4% (36.0-47.0) 28.8% (36.0-47.0) Mean Corpuscular Volume 81fL (79-100) 83fL (79-100) Mean Corpuscular Hemoglobin 26pg (25-35) 27pg (25-35) Mean Corpuscular Hemoglobin Concent 32g/dL (31-37) 32g/dL (31-37) Red Cell Distribution Width 19.7% (11.5-14.5) 20.3% (11.5-14.5) Platelet Count 213x10^3/uL (140-400) 107x10^3/uL (140-400) Neutrophils (%) (Auto) 96% (31-73) 93% (31-73) Lymphocytes (%) (Auto) 2% (24-48) 3% (24-48) Monocytes (%) (Auto) 1% (0-9) 2% (0-9) Eosinophils (%) (Auto) 0% (0-3) 0% (0-3) Basophils (%) (Auto) 1% (0-3) 1% (0-3) Neutrophils # (Auto) 8.4x10^3uL (1.8-7.7) 3.7x10^3uL (1.8-7.7) Lymphocytes # (Auto) 0.1x10^3/uL (1.0-4.8) 0.1x10^3/uL (1.0-4.8) Monocytes # (Auto) 0.1x10^3/uL (0.0-1.1) 0.1x10^3/uL (0.0-1.1) Eosinophils # (Auto) 0.0x10^3/uL (0.0-0.7) 0.0x10^3/uL (0.0-0.7) Basophils # (Auto) 0.1x10^3/uL (0.0-0.2) 0.0x10^3/uL (0.0-0.2) Segmented Neutrophils % 34% (35-66) Band Neutrophils % 60% (0-9) Lymphocytes % 2% (24-48) Monocytes % 1% (0-10) Metamyelocytes % 3% (0-0) Platelet Estimate Adequate (ADEQUATE) Polychromasia Slight Anisocytosis Slight Sodium Level 137mmol/L (136-145) 142mmol/L (136-145) Potassium Level 4.4mmol/L (3.5-5.1) 3.8mmol/L (3.5-5.1) Chloride Level 106mmol/L (98-107) 111mmol/L (98-107) Carbon Dioxide Level 20mmol/L (21-32) 16mmol/L (21-32) Anion Gap 11 (6-14) 15 (6-14) Blood Urea Nitrogen 14mg/dL (7-20) 32mg/dL (7-20) Creatinine 0.9mg/dL (0.6-1.0) 1.7mg/dL (0.6-1.0) Estimated GFR (Cockcroft-Gault) 77.0 37.0 Glucose Level 119mg/dL (70-99) 116mg/dL (70-99) Calcium Level 8.6mg/dL (8.5-10.1) 8.1mg/dL (8.5-10.1) Magnesium Level 2.4mg/dL (1.8-2.4) Total Bilirubin 1.8mg/dL (0.2-1.0) Direct Bilirubin 1.3mg/dL (0.0-0.2) Aspartate Amino Transf (AST/SGOT) 47U/L (15-37) Alanine Aminotransferase (ALT/SGPT) 23U/L (14-59) Alkaline Phosphatase 238U/L (46-116) Total Protein 6.7g/dL (6.4-8.2) Albumin 1.9g/dL (3.4-5.0) Phosphorus Level 3.9mg/dL (2.6-4.7) O2 Saturation 88% (92-99) Arterial Blood pH 7.23 (7.35-7.45) Arterial Blood pCO2 at Patient Temp 37mmHg (35-46) Arterial Blood pO2 at Patient Temp 65mmHg (65-108) Arterial Blood HCO3 15mmol/L (21-28) Arterial Blood Base Excess -12mmol/L (-3-3) FiO2 28 Test 07/30/16 13:25 Lactic Acid Level 3.3mmol/L (0.4-2.0) Laboratory Tests Test 07/30/16 06:55 07/30/16 06:58 07/30/16 11:02 07/30/16 13:25 Sodium Level 142mmol/L (136-145) Potassium Level 3.8mmol/L (3.5-5.1) Chloride Level 111mmol/L (98-107) Carbon Dioxide Level 16mmol/L (21-32) Anion Gap 15 (6-14) Blood Urea Nitrogen 32mg/dL (7-20) Creatinine 1.7mg/dL (0.6-1.0) Estimated GFR (Cockcroft-Gault) 37.0 Glucose Level 116mg/dL (70-99) Calcium Level 8.1mg/dL (8.5-10.1) Phosphorus Level 3.9mg/dL (2.6-4.7) White Blood Count 4.0x10^3/uL (4.0-11.0) Red Blood Count 3.49x10^6/uL (3.50-5.40) Hemoglobin 9.3g/dL (12.0-15.5) Hematocrit 28.8% (36.0-47.0) Mean Corpuscular Volume 83fL (79-100) Mean Corpuscular Hemoglobin 27pg (25-35) Mean Corpuscular Hemoglobin Concent 32g/dL (31-37) Red Cell Distribution Width 20.3% (11.5-14.5) Platelet Count 107x10^3/uL (140-400) Neutrophils (%) (Auto) 93% (31-73) Lymphocytes (%) (Auto) 3% (24-48) Monocytes (%) (Auto) 2% (0-9) Eosinophils (%) (Auto) 0% (0-3) Basophils (%) (Auto) 1% (0-3) Neutrophils # (Auto) 3.7x10^3uL (1.8-7.7) Lymphocytes # (Auto) 0.1x10^3/uL (1.0-4.8) Monocytes # (Auto) 0.1x10^3/uL (0.0-1.1) Eosinophils # (Auto) 0.0x10^3/uL (0.0-0.7) Basophils # (Auto) 0.0x10^3/uL (0.0-0.2) O2 Saturation 88% (92-99) Arterial Blood pH 7.23 (7.35-7.45) Arterial Blood pCO2 at Patient Temp 37mmHg (35-46) Arterial Blood pO2 at Patient Temp 65mmHg (65-108) Arterial Blood HCO3 15mmol/L (21-28) Arterial Blood Base Excess -12mmol/L (-3-3) FiO2 28 Lactic Acid Level 3.3mmol/L (0.4-2.0) Assessment/Plan Assessment/Plan There was concern for acute CHF, echo completed revealed mild diastolic dysfunction with an EF of 69% thus her pulmonary edema and third spacing is likely non cardiogenic in nature, however the PA pressures are unreliable because there was little to no TI. She is in respiratory distress with metabolic acidosis and CXR concerning for ARDS. She also has renal failure in the setting of sepsis and is likely intravascularly depleted. Recommendations as follows, please also see order history: 2 amps of bicarb 500 cc 1/2 NS bolus followed by 1/2NS at 150 cc/hr 100 ml albumin 25% q8 hours for 24 hours Start lasix drip at 10 mg/hr Patient will be taken to the [facility] for simultaneous placement of dialysis catheter , [place]-Vero catheter and arterial line Thank you for the consultation. MATT PALACIOS MD Jul 30, 2016 16:25
--- NOTE | 2016-07-30 16:27 | PDOC4 ---
PROCEDURE Procedure Procedure Note: Procedure insertion of arterial line , swan/scarlett catheter and dialysis catheter Procedure After obtaining consent right and left groins prepped and draped Left groin infiltrated with Xylocaine and dialysis catheter inserted with Seldinger technique. Right groin infiltrated with Xylocaine and femoral arterial line and femoral venous sheath inserted using Seldinger technique. [place] advanced through venous sheath with direct visualization under fluoro all the way to the RA, then to the RV and on to the PA. All lines were sutured ,dressings applied , patient transferred back to ICU in stable condition. MATT PALACIOS MD Jul 30, 2016 16:27
[2016-07-30] MEDS: FENTANYL STANDARD PCA 30 ML IV PRN (17:04)
[2016-07-30 17:07] LABS: GFR 30.6
[2016-07-30 17:09] LABS: ALBUMIN 2.1 g/dL (3.4-5.0)
[2016-07-30 17:10] LABS: PHOSPHORUS 4.1 mg/dL (2.6-4.7)
[2016-07-30] MEDS: FUROSEMIDE INJ 100 MG in IV NORMAL SALINE 100ML 100 ML IV PRN (17:12)
[2016-07-30] MEDS ORDERED: SODIUM BICARBONATE VIAL 150 MEQ in IV DEXTROSE 5% 1,000 ML IV ONE (17:30)
--- NOTE | 2016-07-30 19:29 | RAD ---
PROCEDURE Bilateral lower extremity venous Doppler. HISTORY Bilateral lower extremity swelling. COMPARISON None. FINDINGS Evaluation of the bilateral common femoral veins is limited secondary to bandages. Left calf veins are suboptimally visualized secondary to motion. The veins of both lower extremities were interrogated under grayscale, color Doppler, and spectral Doppler modes. The veins are compressible and demonstrate normal Doppler flow dynamics. There is no evidence of deep venous thrombosis. Mid right femoral vein is duplicated. IMPRESSION Limited examination. No evidence of lower extremity deep venous thrombosis. Electronically signed by: Roderick Mason MD (Jul 30, 2016 19:27:43)
[2016-07-30] MEDS ORDERED: SUCCINYLCHOLINE 200 MG/10 ML VIAL. ONE ×2 (19:47→20:00)
[2016-07-30] MEDS ORDERED: PROPOFOL 100 ML IV ONE (19:48)
[2016-07-30] MEDS ORDERED: PROPOFOL 10 MG/ML (100ML) VIAL. IV ONE (20:00)
[2016-07-30 20:56] LABS: HCO3 ABG 15 mmol/L (21-28); PCO2 ABG 30 mmHg (35-46); PH ABG 7.32 (7.35-7.45); PO2 ABG 307 mmHg (65-108); SAT O2 ABG 99 % (92-99)
[2016-07-30 21:00] LABS: FIO2 ABG 100
--- NOTE | 2016-07-30 21:09 | RAD ---
PROCEDURE Abdomen radiograph. HISTORY NG tube placement. TECHNIQUE AP portable supine abdomen radiograph. COMPARISON May 08, 2014. FINDINGS Esophagogastric tube is present with tip projecting at the body of the stomach. Bowel gas pattern is nonspecific, without convincing evidence of obstruction. Suture material can be seen involving the right side of the abdomen and pelvis. Surgical clips are seen within the pelvis as well as in the right side of the abdomen. Right hip orthopedic screws are seen. There is evidence of a dual lumen catheter, possibly dialysis catheter, by left femoral approach. IMPRESSION Esophagogastric tube tip projects at the body of stomach. Electronically signed by: Roderick Mason MD (Jul 30, 2016 21:08:11)
--- NOTE | 2016-07-30 21:12 | RAD ---
PROCEDURE AP semi upright chest radiograph. HISTORY ICU patient. Ventilated. COMPARISON July 27, 2016 FINDINGS Cardiac silhouette appears within normal limits for size. Esophagogastric tube is present. Endotracheal tube tip projects 2.5 centimeters above the deborah. There has been removal of right-sided PICC line. Right internal jugular central venous catheter is present with tip projecting at the atriocaval junction. There is evidence of a [place]-Vero catheter from inferior approach with tip of the catheter projecting at the right descending pulmonary artery. There is interval development of fairly extensive bilateral alveolar densities. No pneumothorax or pleural effusion is seen. IMPRESSION 1. Numerous lines and tubes as above. 2. Interval development of extensive bilateral airspace disease. Consider pneumonia, pulmonary edema, ARDS, or pulmonary hemorrhage among other possibilities. Electronically signed by: Roderick Mason MD (Jul 30, 2016 21:11:06)
[2016-07-30] MEDS: NOREPINEPHRINE VIAL 8 MG in IV NORMAL SALINE 250ML 250 ML IV PRN (21:22)
[2016-07-30] MEDS: MIDAZOLAM PREMIX 100 ML IV PRN (21:22)
[2016-07-30] MEDS ORDERED: DEXTROSE 70% IV SCH ×11 (22:00)
[2016-07-30] MEDS ORDERED: AMINO ACIDS IV SCH ×11 (22:00)
[2016-07-30] MEDS ORDERED: TOTAL PARENTERAL NUTRITION IV SCH ×11 (22:00)
[2016-07-30] MEDS ORDERED: [UNRECOGNIZED DRUG - OTHER] IV SCH ×11 (22:00)
[2016-07-30] MEDS: DOPAMINE 400MG/250ML PREMIX 250 ML IV PRN (22:15)
[2016-07-31] VITALS (26 sets, daily range): BP systolic 84–150; BP diastolic 42–72
[2016-07-31] MEDS: MICAFUNGIN 100 MG in IV DEXTROSE 5% 100 ML IV SCH (00:57)
[2016-07-31] MEDS: NOREPINEPHRINE VIAL 8 MG in IV NORMAL SALINE 250ML 250 ML IV PRN ×4 (02:22→22:29)
[2016-07-31] MEDS: FUROSEMIDE INJ 100 MG in IV NORMAL SALINE 100ML 100 ML IV PRN (03:17)
[2016-07-31] MEDS: SODIUM BICARBONATE VIAL 150 MEQ in IV DEXTROSE 5% 1,000 ML IV SCH ×3 (04:01→22:26)
[2016-07-31] MEDS: ALBUMIN HUMAN 25% 100 ML IV SCH (05:37)
[2016-07-31 05:39] LABS: CREATININE 2.6 mg/dL (0.6-1.0); GFR 22.6; MAGNESIUM 3.1 mg/dL (1.8-2.4); POTASSIUM 3.7 mmol/L (3.5-5.1)
[2016-07-31 06:17] LABS: BASO % 1 % (0-3); EOS % 1 % (0-3); HEMATOCRIT 26.9 % (36.0-47.0); HEMOGLOBIN 8.6 g/dL (12.0-15.5); LYMPH # 0.6 x10^3/uL (1.0-4.8); LYMPH % 13 % (24-48); MEAN CORPUSCULAR HEMOGLOBIN 26 pg (25-35); MEAN CORPUSCULAR HGB CONC 32 g/dL (31-37); MEAN CORPUSCULAR VOLUME 80 fL (79-100); MONO % 6 % (0-9); NEUT % 80 % (31-73); PLATELET COUNT 78 x10^3/uL (140-400); RED BLOOD COUNT 3.36 x10^6/uL (3.50-5.40); RED CELL DISTRIBUTION WIDTH 20.2 % (11.5-14.5); WHITE BLOOD COUNT 4.6 x10^3/uL (4.0-11.0)
--- NOTE | 2016-07-31 08:11 | PDOC ---
PROGRESS NOTES Assessment Problems Medical Problems: (1) Abdominal pain Status: Acute (2) Enterocutaneous fistula Status: Acute (3) Sepsis Status: Acute (4) Urinary tract infection Status: Acute (5) UTI (urinary tract infection) Status: Acute Metabolic encephalopathy due to sepsis, no evidence of other intrinsic neurological problem Note that she was intubated overnight. Plan No additional neurological investigations needed Subjective none Objective Vital Signs Date Time Temp Pulse Resp B/P Pulse Ox O2 Delivery O2 Flow Rate FiO2 07/31/16 07:21 93 Ventilator 07/31/16 06:00 98.4 109 30 105/47 98.4 07/30/16 19:00 15.0 Intake and Output 07/31/16 07:00 Intake Total 1496 ml Output Total 658 ml Balance 838 ml IV Total 1496 ml Output Urine Total 658 ml PHYSICAL EXAM Sedated on vent PERRL. EOMI. CN: no focal findings. Muscle tone: normal. Muscle strength: does not move to command DTR: 1+ Plantar reflex: flexor Gait: not examined in bed. Sensory exam: not testable. Cerebellar: Not testable Review of Relevant I have reviewed the following items lucila (where applicable) has been applied. Labs Laboratory Tests Test 07/30/16 06:55 07/30/16 06:58 07/30/16 11:02 07/30/16 13:25 Sodium Level 142mmol/L (136-145) Potassium Level 3.8mmol/L (3.5-5.1) Chloride Level 111mmol/L (98-107) Carbon Dioxide Level 16mmol/L (21-32) Anion Gap 15 (6-14) Blood Urea Nitrogen 32mg/dL (7-20) Creatinine 1.7mg/dL (0.6-1.0) Estimated GFR (Cockcroft-Gault) 37.0 Glucose Level 116mg/dL (70-99) Calcium Level 8.1mg/dL (8.5-10.1) Phosphorus Level 3.9mg/dL (2.6-4.7) White Blood Count 4.0x10^3/uL (4.0-11.0) Red Blood Count 3.49x10^6/uL (3.50-5.40) Hemoglobin 9.3g/dL (12.0-15.5) Hematocrit 28.8% (36.0-47.0) Mean Corpuscular Volume 83fL (79-100) Mean Corpuscular Hemoglobin 27pg (25-35) Mean Corpuscular Hemoglobin Concent 32g/dL (31-37) Red Cell Distribution Width 20.3% (11.5-14.5) Platelet Count 107x10^3/uL (140-400) Neutrophils (%) (Auto) 93% (31-73) Lymphocytes (%) (Auto) 3% (24-48) Monocytes (%) (Auto) 2% (0-9) Eosinophils (%) (Auto) 0% (0-3) Basophils (%) (Auto) 1% (0-3) Neutrophils # (Auto) 3.7x10^3uL (1.8-7.7) Lymphocytes # (Auto) 0.1x10^3/uL (1.0-4.8) Monocytes # (Auto) 0.1x10^3/uL (0.0-1.1) Eosinophils # (Auto) 0.0x10^3/uL (0.0-0.7) Basophils # (Auto) 0.0x10^3/uL (0.0-0.2) O2 Saturation 88% (92-99) Arterial Blood pH 7.23 (7.35-7.45) Arterial Blood pCO2 at Patient Temp 37mmHg (35-46) Arterial Blood pO2 at Patient Temp 65mmHg (65-108) Arterial Blood HCO3 15mmol/L (21-28) Arterial Blood Base Excess -12mmol/L (-3-3) FiO2 28 Lactic Acid Level 3.3mmol/L (0.4-2.0) Test 07/30/16 16:38 07/30/16 19:40 07/31/16 05:10 Sodium Level 144mmol/L (136-145) 146mmol/L (136-145) Potassium Level 4.0mmol/L (3.5-5.1) 3.7mmol/L (3.5-5.1) Chloride Level 111mmol/L (98-107) 109mmol/L (98-107) Carbon Dioxide Level 17mmol/L (21-32) 20mmol/L (21-32) Anion Gap 16 (6-14) 17 (6-14) Blood Urea Nitrogen 41mg/dL (7-20) 45mg/dL (7-20) Creatinine 2.0mg/dL (0.6-1.0) 2.6mg/dL (0.6-1.0) Estimated GFR (Cockcroft-Gault) 30.6 22.6 Glucose Level 61mg/dL (70-99) 79mg/dL (70-99) Calcium Level 8.0mg/dL (8.5-10.1) 8.0mg/dL (8.5-10.1) Phosphorus Level 4.1mg/dL (2.6-4.7) Albumin 2.1g/dL (3.4-5.0) O2 Saturation 99% (92-99) Arterial Blood pH 7.32 (7.35-7.45) Arterial Blood pCO2 at Patient Temp 30mmHg (35-46) Arterial Blood pO2 at Patient Temp 307mmHg (65-108) Arterial Blood HCO3 15mmol/L (21-28) Arterial Blood Base Excess -10mmol/L (-3-3) FiO2 100 White Blood Count 4.6x10^3/uL (4.0-11.0) Red Blood Count 3.36x10^6/uL (3.50-5.40) Hemoglobin 8.6g/dL (12.0-15.5) Hematocrit 26.9% (36.0-47.0) Mean Corpuscular Volume 80fL (79-100) Mean Corpuscular Hemoglobin 26pg (25-35) Mean Corpuscular Hemoglobin Concent 32g/dL (31-37) Red Cell Distribution Width 20.2% (11.5-14.5) Platelet Count 78x10^3/uL (140-400) Neutrophils (%) (Auto) 80% (31-73) Lymphocytes (%) (Auto) 13% (24-48) Monocytes (%) (Auto) 6% (0-9) Eosinophils (%) (Auto) 1% (0-3) Basophils (%) (Auto) 1% (0-3) Neutrophils # (Auto) 3.6x10^3uL (1.8-7.7) Lymphocytes # (Auto) 0.6x10^3/uL (1.0-4.8) Monocytes # (Auto) 0.3x10^3/uL (0.0-1.1) Eosinophils # (Auto) 0.0x10^3/uL (0.0-0.7) Basophils # (Auto) 0.0x10^3/uL (0.0-0.2) Magnesium Level 3.1mg/dL (1.8-2.4) Laboratory Tests Test 07/30/16 11:02 07/30/16 13:25 07/30/16 16:38 07/30/16 19:40 O2 Saturation 88% (92-99) 99% (92-99) Arterial Blood pH 7.23 (7.35-7.45) 7.32 (7.35-7.45) Arterial Blood pCO2 at Patient Temp 37mmHg (35-46) 30mmHg (35-46) Arterial Blood pO2 at Patient Temp 65mmHg (65-108) 307mmHg (65-108) Arterial Blood HCO3 15mmol/L (21-28) 15mmol/L (21-28) Arterial Blood Base Excess -12mmol/L (-3-3) -10mmol/L (-3-3) FiO2 28 100 Lactic Acid Level 3.3mmol/L (0.4-2.0) Sodium Level 144mmol/L (136-145) Potassium Level 4.0mmol/L (3.5-5.1) Chloride Level 111mmol/L (98-107) Carbon Dioxide Level 17mmol/L (21-32) Anion Gap 16 (6-14) Blood Urea Nitrogen 41mg/dL (7-20) Creatinine 2.0mg/dL (0.6-1.0) Estimated GFR (Cockcroft-Gault) 30.6 Glucose Level 61mg/dL (70-99) Calcium Level 8.0mg/dL (8.5-10.1) Phosphorus Level 4.1mg/dL (2.6-4.7) Albumin 2.1g/dL (3.4-5.0) Test 07/31/16 05:10 White Blood Count 4.6x10^3/uL (4.0-11.0) Red Blood Count 3.36x10^6/uL (3.50-5.40) Hemoglobin 8.6g/dL (12.0-15.5) Hematocrit 26.9% (36.0-47.0) Mean Corpuscular Volume 80fL (79-100) Mean Corpuscular Hemoglobin 26pg (25-35) Mean Corpuscular Hemoglobin Concent 32g/dL (31-37) Red Cell Distribution Width 20.2% (11.5-14.5) Platelet Count 78x10^3/uL (140-400) Neutrophils (%) (Auto) 80% (31-73) Lymphocytes (%) (Auto) 13% (24-48) Monocytes (%) (Auto) 6% (0-9) Eosinophils (%) (Auto) 1% (0-3) Basophils (%) (Auto) 1% (0-3) Neutrophils # (Auto) 3.6x10^3uL (1.8-7.7) Lymphocytes # (Auto) 0.6x10^3/uL (1.0-4.8) Monocytes # (Auto) 0.3x10^3/uL (0.0-1.1) Eosinophils # (Auto) 0.0x10^3/uL (0.0-0.7) Basophils # (Auto) 0.0x10^3/uL (0.0-0.2) Sodium Level 146mmol/L (136-145) Potassium Level 3.7mmol/L (3.5-5.1) Chloride Level 109mmol/L (98-107) Carbon Dioxide Level 20mmol/L (21-32) Anion Gap 17 (6-14) Blood Urea Nitrogen 45mg/dL (7-20) Creatinine 2.6mg/dL (0.6-1.0) Estimated GFR (Cockcroft-Gault) 22.6 Glucose Level 79mg/dL (70-99) Calcium Level 8.0mg/dL (8.5-10.1) Magnesium Level 3.1mg/dL (1.8-2.4) Microbiology 07/28/16 Blood Culture - Preliminary, Resulted 07/28/16 Blood Culture Result 1 (ROYA) - Preliminary, Resulted 07/15/16 Urine Culture - Final, Complete 07/15/16 Urine Culture Result 1 (ROYA) - Final, Complete 07/15/16 Urine Culture Result 2 (ROYA) - Final, Complete 07/15/16 Antimicrobic Susceptibility - Final, Complete 07/29/16 Aerobic Culture - Preliminary, Resulted 07/29/16 Aerobic Culture Result 1 (ROYA) - Preliminary, Resulted Medications Current Medications Piperacillin Sod/ Tazobactam Sod/ Sodium Chloride (Zosyn/Iv Sodium Chloride 0.9 % 100ml) 100 ml @ 200 mls/hr 1X ONCE IV Last administered on 07/15/16 22:56; Start 07/15/16 at 22:00; Stop 07/15/16 at 22:29; Status DC Fentanyl Citrate 50 mcg 50 mcg PRN Q15MIN PRN IV PAIN GREATER THAN 3/10 Last administered on 07/16/16 00:30; Start 07/15/16 at 21:45; Stop 07/16/16 at 02:00; Status DC Sodium Chloride 1,000 ml @ 1,000 mls/hr 1X ONCE IV Last administered on 21:59; Start 07/15/16 at 22:00; Stop 07/15/16 at 22:59; Status DC Sodium Chloride (Iv Sodium Chloride 0.9% 500ml Bag) 500 ml @ 500 mls/hr 1X ONCE IV Last administered on 07/15/16 22:00; Start 07/15/16 at 22:00; Stop at 22:59; Status DC Ondansetron HCl (Zofran) 4 mg PRN Q8HRS PRN IV NAUSEA/VOMITING; Start 07/15/16 at 23:30; Stop 07/16/16 at 08:52; Status DC Fentanyl Citrate 50 mcg 50 mcg PRN Q2HR PRN IV SEVERE PAIN Last administered on 07/16/16 08:10; Start 07/15/16 at 23:30; Stop 07/16/16 at 08:52; Status DC Sodium Chloride (Iv Sodium Chloride 0.9% 1000ml Bag) 1,000 ml @ 150 mls/hr Q6H40M IV Last administered on 07/15/16 02:00; Start 07/15/16 at 23:45; Stop 07/16/16 at 08:52; Status DC Acetaminophen (Tylenol) 650 mg PRN Q4HRS PRN PO FEVER; Start 07/15/16 at 23:30; Stop 07/16/16 at 23:29; Status DC Info (Do NOT chart on this placeholder) 1 each PRN DAILY PRN MC NEEDS VERIFICATION; Start 07/16/16 at 03:00; Status Cancel Acetaminophen 650 mg 650 mg PRN Q4HRS PRN PO MILD PAIN / TEMP Last administered on 07/28/16 07:42; Start 07/16/16 at 08:45; Stop 07/29/16 at 08:33 ; Status DC Piperacillin Sod/ Tazobactam Sod 3.375 gm/Sodium Chloride 50 ml @ 100 mls/hr Q6HRS IV Last administered on 07/18/16 05:50; Start 07/16/16 at 10:00; Stop 07/18 at 13:28; Status DC Linezolid (Zyvox Premix) 300 ml @ 300 mls/hr Q12HR IV Last administered on 07/18 08:34; Start 07/16/16 at 10:00; Stop 07/18/16 at 13:28; Status DC Hydromorphone HCl (Dilaudid) 2 mg PRN Q4HRS PRN IV MODERATE PAIN Last administered on 07/28/16 23:33; Start 07/16/16 at 08:45 Hydromorphone HCl (Dilaudid) 4 mg PRN Q4HRS PRN IV SEVERE PAIN Last administered on 07/30/16 09:23; Start 07/16/16 at 08:45 Pantoprazole Sodium (Protonix) 40 mg DAILYAC PO Last administered on 07/27/16 11:11; Start 07/16/16 at 09:30; Stop 07/29/16 at 08:44; Status DC Hyoscyamine (Anaspaz) 0.125 mg Q6HRS PO Last administered on 07/20/16 05:20; Start 07/16/16 at 12:00; Stop 07/20/16 at 08:58; Status DC Phenazopyridine HCl (Pyridium) 200 mg TID PO Last administered on 07/20/16 08: 25; Start 07/16/16 at 09:30; Stop 07/20/16 at 08:58; Status DC Lorazepam (Ativan) 0.5 mg PRN BID PRN PO ANXIETY / AGITATION Last administered on 07/29/16 02:16; Start 07/16/16 at 08:45 Simethicone (Gas-X) 80 mg PRN Q4HRS PRN PO GAS / BLOATING Last administered on 07/24/16 22:30; Start 07/16/16 at 08:45 Zolpidem Tartrate 5 mg 5 mg PRN QHS PRN PO INSOMNIA Last administered on 23:14; Start 07/16/16 at 08:45 Potassium Chloride/Dextrose/ Sod Cl 1,000 ml @ 80 mls/hr [id number] IV Last administered on 07/16/16 10:54; Start 07/16/16 at 09:30; Stop 07/16/16 at 21:59; Status DC Fluconazole/ Sodium Chloride (Diflucan 200mg/ 100ml Premix) 100 ml @ 100 mls/ hr Q24H IV Last administered on 07/18/16 11:43; Start 07/16/16 at 11:00; Stop at 13:28; Status DC Info 1 each 1 each PRN DAILY PRN MC SEE COMMENTS Last administered on 09:27; Start 07/16/16 at 10:00 Sodium Chloride 220 meq/Sodium Acetate 90 meq/ Potassium Chloride 50 meq/ Potassium Acetate 15 meq/Potassium Phosphate 10 mmol/ Magnesium Sulfate 50 meq/ Calcium Gluconate 6 meq/ Multivitamins/ Minerals 10 ml/ Chromium/Copper/ Manganese/Seleni/ Zn 1 ml/Total Parenteral Nutrition/Amino Acids/Dextro... 1, 920 ml @ 80 mls/hr TPN CONT IV ; Start 07/16/16 at 22:00; Stop 07/16/16 at 22:00 ; Status DC Sodium Chloride/ Sodium Acetate/ Potassium Chloride/ Potassium Acetate/ Potassium Phosphate/ Magnesium Sulfate/ Calcium Gluconate/ Multivitamins/ Minerals/Chromium/ Copper/Manganese/ Seleni/Zn/Total Parenteral Nutrition/Amino Acids/Dextrose/ Fat Emulsion Intravenous (Sodium Chlori... 1,820 ml @ 75.833 mls/ hr TPN CONT IV Last administered on 07/16/16 21:03; Start 07/16/16 at 22: 00; Stop 07/17/16 at 21:59; Status DC Ondansetron HCl (Zofran) 4 mg PRN Q6HRS PRN IV NAUSEA/VOMITING Last administered on 07/21/16 08:48; Start 07/16/16 at 17:15 Diphenhydramine HCl (Benadryl) 25 mg PRN Q6HRS PRN PO ITCHING Last administered on 07/25/16 23:38; Start 07/16/16 at 17:45 Lidocaine (Xylocaine) 1 sang BID TP Last administered on 07/30/16 21:23; Start 07/17/16 at 09:00 Zinc Oxide 1 sang 1 sang BID TP Last administered on 07/30/16 21:23; Start at 09:30 Sodium Chloride/ Sodium Acetate/ Potassium Chloride/ Potassium Acetate/ Potassium Phosphate/ Magnesium Sulfate/ Calcium Gluconate/ Multivitamins/ Minerals/Chromium/ Copper/Manganese/ Seleni/Zn/Total Parenteral Nutrition/Amino Acids/Dextrose/ Fat Emulsion Intravenous (Sodium Chlori... 1,920 ml @ 80 mls/ hr TPN CONT IV Last administered on 07/17/16 22:13; Start 07/17/16 at 22:00; Stop 07/18/16 at 21:59; Status DC Furosemide 40 mg 40 mg 1X ONCE IVP Last administered on 07/18/16 11:43; Start 07/18/16 at 11:00; Stop 07/18/16 at 11:07; Status DC Sodium Chloride 220 meq/Sodium Acetate 90 meq/ Potassium Chloride 50 meq/ Potassium Acetate 15 meq/Potassium Phosphate 10 mmol/ Magnesium Sulfate 50 meq/ Calcium Gluconate 3 meq/ Multivitamins/ Minerals 10 ml/ Chromium/Copper/ Manganese/Seleni/ Zn 1 ml/Total Parenteral Nutrition/Amino Acids/Dextro... 1, 920 ml @ 80 mls/hr TPN CONT IV Last administered on 07/19/16 00:03; Start 07/18/16 at 22:00; Stop 07/19/16 at 21:59; Status DC Meropenem 1 gm/ Sodium Chloride 100 ml @ 200 mls/hr Q8HRS IV Last administered on 07/20/16 05:21; Start 07/18/16 at 14:00; Stop 07/20/16 at 11:25; Status DC Micafungin Sodium 100 mg/Dextrose 100 ml @ 100 mls/hr Q24H IV Last administered on 07/19/16 15:05; Start 07/18/16 at 14:00; Stop 07/20/16 at 11:25; Status DC Daptomycin/Sodium Chloride (Cubicin/Iv Sodium Chloride 0.9% 50ml) 50 ml @ 100 mls/hr Q24H IV Last administered on 07/19/16 16:56; Start 07/18/16 at 15:00; Stop 07/20/16 at 11:25; Status DC Alteplase, Recombinant (Cathflo) 2 mg 1X ONCE INT CAT Last administered on 07/19 06:24; Start 07/19/16 at 07:00; Stop 07/19/16 at 07:01; Status DC Gentamicin Sulfate 1 each 1 each PRN DAILY PRN MC SEE COMMENTS Last administered on 07/25/16 15:31; Start 07/19/16 at 12:15; Stop 07/25/16 at 16:14 ; Status DC Gentamicin Sulfate/Sodium Chloride (Iv Sodium Chloride 0.9% 100ml) 106.75 ml @ 106.75 mls/hr Q24H IV Last administered on 07/25/16 15:31; Start 07/19/16 at 13 :00; Stop 07/25/16 at 16:12; Status DC Gentamicin Sulfate 1 each 1 each 1X ONCE MC Last administered on 07/19/16 23: 00; Start 07/19/16 at 23:00; Stop 07/19/16 at 23:01; Status DC Sodium Chloride/ Sodium Acetate/ Potassium Chloride/ Potassium Acetate/ Potassium Phosphate/ Magnesium Sulfate/ Calcium Gluconate/ Multivitamins/ Minerals/Chromium/ Copper/Manganese/ Seleni/Zn/Total Parenteral Nutrition/Amino Acids/Dextrose/ Fat Emulsion Intravenous (Sodium Chlori... 1,920 ml @ 80 mls/ hr TPN CONT IV Last administered on 07/19/16 20:51; Start 07/19/16 at 22:00; Stop 07/20/16 at 21:59; Status DC Hyoscyamine (Anaspaz) 0.125 mg PRN Q6HRS PRN PO BLADDER SPASM; Start 07/20/16 at 09:00 Phenazopyridine HCl 200 mg 200 mg PRN TID PRN PO BLADDER SPASM Last administered on 07/21/16 20:14; Start 07/20/16 at 09:00 Linezolid 300 ml @ 300 mls/hr Q12HR IV Last administered on 07/25/16 09:02; Start 07/20/16 at 12:00; Stop 07/25/16 at 16:12; Status DC Sodium Chloride 220 meq/Sodium Acetate 90 meq/ Potassium Chloride 50 meq/ Potassium Acetate 15 meq/Potassium Phosphate 10 mmol/ Magnesium Sulfate 50 meq/ Calcium Gluconate 3 meq/ Multivitamins/ Minerals 10 ml/ Chromium/Copper/ Manganese/Seleni/ Zn 1 ml/Total Parenteral Nutrition/Amino Acids/Dextro... 1, 920 ml @ 80 mls/hr TPN CONT IV Last administered on 07/20/16 21:30; Start 07/20/16 at 22:00; Stop 07/21/16 at 21:59; Status DC Sodium Chloride/ Sodium Acetate/ Potassium Chloride/ Potassium Acetate/ Potassium Phosphate/ Magnesium Sulfate/ Multivitamins/ Minerals/Chromium/ Copper /Manganese/ Seleni/Zn/Total Parenteral Nutrition/Amino Acids/Dextrose/ Fat Emulsion Intravenous (Sodium Chloride/ Potass... 1,920 ml @ 80 mls/hr TPN CONT IV Last administered on 07/21/16 22:05; Start 07/21/16 at 22:00; Stop at 21:59; Status DC Alteplase, Recombinant 2 mg 2 mg PRN DAILY PRN INT CAT INFLAMMATION Last administered on 07/27/16 11:31; Start 07/21/16 at 15:00 Sodium Chloride 220 meq/Sodium Acetate 90 meq/ Potassium Chloride 50 meq/ Potassium Acetate 15 meq/Potassium Phosphate 10 mmol/ Magnesium Sulfate 50 meq/ Multivitamins/ Minerals 10 ml/ Chromium/Copper/ Manganese/Seleni/ Zn 1 ml/Total Parenteral Nutrition/Amino Acids/Dextrose/ Fat Emuls... 1,920 ml @ 80 mls/hr TPN CONT IV Last administered on 07/22/16 20:53; Start 07/22/16 at 22:00; Stop 07/23/16 at 21:59; Status DC Sodium Chloride/ Sodium Acetate/ Potassium Chloride/ Potassium Acetate/ Potassium Phosphate/ Magnesium Sulfate/ Multivitamins/ Minerals/Chromium/ Copper /Manganese/ Seleni/Zn/Total Parenteral Nutrition/Amino Acids/Dextrose/ Fat Emulsion Intravenous (Sodium Chloride/ Potass... 1,920 ml @ 80 mls/hr TPN CONT IV Last administered on 07/23/16 21:16; Start 07/23/16 at 22:00; Stop 07/24 at 21:59; Status DC Gentamicin Sulfate 1 each 1 each 1X ONCE MC ; Start 07/23/16 at 22:00; Stop 07/23 at 22:01; Status Cancel Sodium Chloride/ Sodium Acetate/ Potassium Chloride/ Potassium Acetate/ Potassium Phosphate/ Magnesium Sulfate/ Multivitamins/ Minerals/Chromium/ Copper /Manganese/ Seleni/Zn/Total Parenteral Nutrition/Amino Acids/Dextrose/ Fat Emulsion Intravenous (Sodium Chloride/ Potass... 1,920 ml @ 80 mls/hr TPN CONT IV Last administered on 07/24/16 21:15; Start 07/24/16 at 22:00; Stop 04/30 at 21:59; Status DC Gentamicin Sulfate 1 each 1X ONCE MC ; Start 07/25/16 at 12:30; Stop 07/25/16 at 12:31; Status Cancel Amlodipine Besylate 5 mg 5 mg DAILY PO Last administered on 07/27/16 11:12; Start 07/25/16 at 12:00; Stop 07/29/16 at 08:44; Status DC Sodium Chloride 220 meq/Sodium Acetate 90 meq/ Potassium Chloride 30 meq/ Potassium Acetate 15 meq/Potassium Phosphate 10 mmol/ Magnesium Sulfate 50 meq/ Multivitamins/ Minerals 10 ml/ Chromium/Copper/ Manganese/Seleni/ Zn 1 ml/Total Parenteral Nutrition/Amino Acids/Dextrose/ Fat Emuls... 1,920 ml @ 80 mls/hr TPN CONT IV Last administered on 07/25/16 22:25; Start 07/25/16 at 22:00; Stop 07/26/16 at 21:59; Status DC Sodium Chloride/ Sodium Acetate/ Potassium Chloride/ Potassium Acetate/ Potassium Phosphate/ Magnesium Sulfate/ Multivitamins/ Minerals/Chromium/ Copper /Manganese/ Seleni/Zn/Total Parenteral Nutrition/Amino Acids/Dextrose/ Fat Emulsion Intravenous (Sodium Chloride/ Potass... 1,920 ml @ 80 mls/hr TPN CONT IV Last administered on 07/26/16 23:16; Start 07/26/16 at 22:00; Stop at 21:59; Status DC Furosemide 20 mg 20 mg 1X ONCE IVP Last administered on 07/27/16 11:31; Start 07/27/16 at 09:00; Stop 07/27/16 at 09:01; Status DC Daptomycin 340 mg/ Sodium Chloride 50 ml @ 100 mls/hr Q24H IV Last administered on 07/29/16 15:05; Start 07/27/16 at 13:00; Stop 07/30/16 at 07:25 ; Status DC Piperacillin Sod/ Tazobactam Sod 3.375 gm/Sodium Chloride 50 ml @ 100 mls/hr Q6HRS IV Last administered on 07/30/16 05:30; Start 07/27/16 at 12:30; Stop at 07:25; Status DC Fluconazole/ Sodium Chloride 100 ml @ 100 mls/hr Q24H IV Last administered on 07/28/16 13:32; Start 07/27/16 at 13:00; Stop 07/29/16 at 00:53; Status DC Sodium Chloride 1,000 ml @ 1,000 mls/hr 1X ONCE IV Last administered on 12:34; Start 07/27/16 at 12:30; Stop 07/27/16 at 13:29; Status DC Sodium Chloride 220 meq/Sodium Acetate 90 meq/ Potassium Chloride 30 meq/ Potassium Acetate 15 meq/Potassium Phosphate 10 mmol/ Magnesium Sulfate 45 meq/ Multivitamins/ Minerals 10 ml/ Chromium/Copper/ Manganese/Seleni/ Zn 1 ml/Total Parenteral Nutrition/Amino Acids/Dextrose/ Fat Emuls... 1,920 ml @ 80 mls/hr TPN CONT IV Last administered on 07/27/16 22:38; Start 07/27/16 at 22:00; Stop 07/28/16 at 21:59; Status DC Sodium Chloride (Iv Sodium Chloride 0.9% 1000ml Bag) 1,000 ml @ 45 mls/hr [id number] IV Last administered on 07/28/16 03:24; Start 07/27/16 at 17:00; Stop 07/28/16 at 10:27; Status DC Acetaminophen 650 mg 650 mg PRN Q6HRS PRN MI fever Last administered on 03:57; Start 07/27/16 at 16:30; Stop 07/29/16 at 08:33; Status DC Sodium Chloride 1,000 ml @ 427.5 mls/ hr Q2H21M IV Last administered on 19:30; Start 07/27/16 at 19:30; Stop 07/27/16 at 23:30; Status DC Sodium Chloride 220 meq/Sodium Acetate 90 meq/ Potassium Chloride 30 meq/ Potassium Acetate 15 meq/Potassium Phosphate 10 mmol/ Magnesium Sulfate 45 meq/ Multivitamins/ Minerals 10 ml/ Chromium/Copper/ Manganese/Seleni/ Zn 1 ml/Total Parenteral Nutrition/Amino Acids/Dextrose/ Fat Emuls... 1,920 ml @ 80 mls/hr TPN CONT IV Last administered on 07/28/16 21:43; Start 07/28/16 at 22:00; Stop 07/29/16 at 21:59; Status DC Micafungin Sodium/ Dextrose (Mycamine) 100 ml @ 100 mls/hr Q24H IV Last administered on 07/31/16 00:57; Start 07/29/16 at 01:00 Lorazepam (Ativan) 0.05 mg PRN Q4HRS PRN IV ANXIETY / AGITATION; Start at 02:30; Stop 07/29/16 at 02:48; Status DC Lorazepam (Ativan) 0.5 mg PRN Q4HRS PRN IV ANXIETY / AGITATION Last administered on 07/29/16 03:18; Start 07/29/16 at 03:00 Acetaminophen (Tylenol) 650 mg PRN Q4HRS PRN [place] MILD PAIN / TEMP; Start at 08:30 Ketorolac Tromethamine (Toradol) 30 mg PRN Q6HRS PRN IV PAIN/FEVER Last administered on 07/30/16 00:50; Start 07/29/16 at 08:30; Stop 07/30/16 at 13:01 ; Status DC Pantoprazole Sodium 40 mg 40 mg DAILYAC IVP Last administered on 07/30/16 08: 40; Start 07/29/16 at 09:00 Sodium Chloride 1,000 ml @ 45 mls/hr [id number] IV Last administered on 08:39; Start 07/29/16 at 08:45 Sodium Chloride/ Sodium Acetate/ Potassium Chloride/ Potassium Acetate/ Potassium Phosphate/ Magnesium Sulfate/ Multivitamins/ Minerals/Chromium/ Copper /Manganese/ Seleni/Zn/Total Parenteral Nutrition/Amino Acids/Dextrose/ Fat Emulsion Intravenous (Sodium Chloride/ Potass... 1,920 ml @ 80 mls/hr TPN CONT IV Last administered on 07/29/16 22:06; Start 07/29/16 at 22:00; Stop at 21:59; Status DC Lidocaine/Sodium Bicarbonate 20 ml 20 ml STK-MED ONCE IJ ; Start 07/29/16 at 13: 13; Stop 07/29/16 at 13:14; Status DC Heparin Sodium/ Sodium Chloride 500 ml @ As Directed STK-MED ONCE .ROUTE ; Start 07/29/16 at 13:13; Stop 07/29/16 at 13:14; Status DC Lidocaine/ Epinephrine (Xylocaine 1%-Epi 1:100,000) 20 ml STK-MED ONCE .ROUTE ; Start 07/29/16 at 13:22; Stop 07/29/16 at 13:23; Status DC Midazolam HCl (Versed) 5 mg STK-MED ONCE .ROUTE ; Start 07/29/16 at 13:32; Stop 07/29/16 at 13:33; Status DC Fentanyl Citrate (Fentanyl 5ml Vial) 250 mcg STK-MED ONCE .ROUTE ; Start at 13:32; Stop 07/29/16 at 13:33; Status DC Heparin Sodium/ Sodium Chloride 1,000 unit 1X ONCE IART Last administered on 13:45; Start 07/29/16 at 13:45; Stop 07/29/16 at 13:48; Status DC Midazolam HCl (Versed) 5 mg 1X ONCE IV Last administered on 07/29/16 13:45; Start 07/29/16 at 13:45; Stop 07/29/16 at 13:48; Status DC Fentanyl Citrate (Fentanyl 5ml Vial) 250 mcg 1X ONCE IV Last administered on 13:45; Start 07/29/16 at 13:45; Stop 07/29/16 at 13:48; Status DC Lidocaine/ Epinephrine 20 ml 20 ml 1X ONCE IJ Last administered on 07/29/16 13:45; Start 07/29/16 at 13:45; Stop 07/29/16 at 13:48; Status DC Sodium Chloride 220 meq/Sodium Acetate 90 meq/ Potassium Chloride 15 meq/ Potassium Acetate 30 meq/Potassium Phosphate 10 mmol/ Magnesium Sulfate 45 meq/ Multivitamins/ Minerals 10 ml/ Chromium/Copper/ Manganese/Seleni/ Zn 1 ml/Total Parenteral Nutrition/Amino Acids/Dextrose/ Fat Emuls... 1,920 ml @ 80 mls/hr TPN CONT IV ; Start 07/30/16 at 22:00; Stop 07/31/16 at 21:59 Norepinephrine Bitartrate 8 mg/ Sodium Chloride 258 ml @ 1.93 mls/hr 1X ONCE IV Last administered on 07/30/16 11:17; Start 07/30/16 at 11:15; Stop at 15:43; Status DC Norepinephrine Bitartrate/Sodium Chloride (Levophed Vial/ Iv Sodium Chloride 0.9 % 250ml) 258 ml @ 0 mls/hr CONT PRN IV SEE I/O RECORD Last administered on 07/31 02:22; Start 07/30/16 at 11:15 Furosemide 60 mg 60 mg 1X ONCE IVP Last administered on 07/30/16 11:14; Start 07/30/16 at 11:15; Stop 07/30/16 at 11:16; Status DC Sodium Chloride 500 ml @ 500 mls/hr Q1H IV Last administered on 07/30/16 17: 04; Start 07/30/16 at 14:30; Stop 07/30/16 at 15:29; Status DC Albumin Human 100 ml @ 100 mls/hr Q8HRS IV Last administered on 07/31/16 05: 37; Start 07/30/16 at 14:30; Stop 07/31/16 at 06:59; Status DC Furosemide/Sodium Chloride (Lasix Drip/Iv Sodium Chloride 0.9% 100ml) 100 ml @ 0 mls/hr CONT PRN IV SEE I/O RECORD Last administered on 07/31/16 03:17; Start 07/30/16 at 14:30 Ondansetron HCl (Zofran) 8 mg PRN Q8HRS PRN IV NAUSEA/VOMITING Last administered on 07/30/16 14:38; Start 07/30/16 at 14:30 Sodium Bicarbonate 50 meq 50 meq 1X ONCE IV Last administered on 07/30/16 14: 43; Start 07/30/16 at 14:30; Stop 07/30/16 at 14:31; Status DC Heparin Sodium/ Sodium Chloride 500 ml @ As Directed STK-MED ONCE .ROUTE ; Start 07/30/16 at 14:49; Stop 07/30/16 at 14:50; Status DC Lidocaine HCl 20 ml STK-MED ONCE .ROUTE ; Start 07/30/16 at 14:49; Stop at 14:50; Status DC Midazolam HCl (Versed) 2 mg STK-MED ONCE .ROUTE ; Start 07/30/16 at 15:19; Stop 07/30/16 at 15:20; Status DC Heparin Sodium/ Sodium Chloride 1,000 unit 1X ONCE IART Last administered on 15:44; Start 07/30/16 at 15:45; Stop 07/30/16 at 15:46; Status DC Midazolam HCl (Versed) 1.5 mg 1X ONCE IV Last administered on 07/30/16 15:44 ; Start 07/30/16 at 15:45; Stop 07/30/16 at 15:46; Status DC Lidocaine HCl 20 ml 1X ONCE IJ Last administered on 07/30/16 15:44; Start at 15:45; Stop 07/30/16 at 15:46; Status DC Heparin Sodium (Porcine) 24796 unit 10,000 unit STK-MED ONCE .ROUTE ; Start at 15:54; Stop 07/30/16 at 15:55; Status DC Fentanyl Citrate 30 ml @ 0 mls/hr CONT PRN PRN IV PROTOCOL Last administered on 07/30/16 17:04; Start 07/30/16 at 16:45 Sodium Bicarbonate/ Dextrose 1,150 ml @ 125 mls/hr 1X ONCE IV Last administered on 07/30/16 18:34; Start 07/30/16 at 17:30; Stop 07/31/16 at 02:41 ; Status DC Succinylcholine Chloride 200 mg 200 mg STK-MED ONCE .ROUTE ; Start 07/30/16 at 19:47; Stop 07/30/16 at 19:48; Status DC Propofol 100 ml @ As Directed STK-MED ONCE IV ; Start 07/30/16 at 19:48; Stop 07/30/16 at 19:49; Status DC Midazolam HCl (Versed 100mg/ 100ml Premix) 100 ml @ 0 mls/hr CONT PRN IV SEE I/ O RECORD Last administered on 07/30/16 21:22; Start 07/30/16 at 21:15 Sodium Bicarbonate 50 meq 50 meq 1X ONCE IV Last administered on 07/30/16 22: 15; Start 07/30/16 at 22:30; Stop 07/30/16 at 22:31; Status DC Dopamine HCl/ Dextrose 250 ml @ 11.513 mls/ hr CONT PRN IV SEE I/O RECORD Last administered on 07/30/16 22:15; Start 07/30/16 at 22:15 Sodium Bicarbonate/ Dextrose 1,150 ml @ 125 mls/hr Q9H12M IV Last administered on 07/31/16 04:01; Start 07/31/16 at 03:00 Active Scripts Active Dilaudid (Hydromorphone Hcl) 4 Mg Tablet 4 Mg PO Q6HRS Phenazopyridine Hcl 200 Mg Tablet 200 Mg PO PRN TID PRN FENTANYL 50mcg/hr (Fentanyl) 1 Each Patch.td72 1 Patch TD Q3DAYS Anaspaz (Hyoscyamine Sulfate) 0.125 Mg Tab.rapdis 0.125 Mg PO Q6HRS PRN Cefpodoxime Proxetil 200 Mg Tablet 200 Mg PO BID Sertraline Hcl 50 Mg Tablet 100 Mg PO DAILY 30 Days Protonix (Pantoprazole Sodium) 40 Mg Tablet.dr 1 Tab PO DAILY Zinc Oxide 56.7 Gm Oint...g. 1 Sang TP BID Lidocaine 35.44 Gm Oint...g. 1 Sang TP BID Ondansetron Odt (Ondansetron) 4 Mg Tab.rapdis 8 Mg PO PRN Q8HRS PRN Gas-X (Simethicone) 80 Mg Tab.chew 80 Mg PO PRN QID PRN Reported Lorazepam 0.5 Mg Tablet 0.5 Mg PO PRN BID PRN Vitals/I & O Vital Sign - Last 24 Hours 07/30/16 07/30/16 07/30/16 07/30/16 09:00 09:23 10:00 10:02 Pulse 102 101 Resp 30 30 B/P 81/48 80/54 Pulse Ox 93 94 94 O2 Delivery Nasal Cannula Nasal Cannula Nasal Cannula Nasal Cannula O2 Flow Rate 2.0 2.0 2.0 2.0 2/16/17 2/16/17 2/16/17 2/16/17 11:00 11:30 12:00 12:00 Temp 97.9 97.9 Pulse 102 104 100 Resp 26 32 B/P 73/50 83/55 97/52 Pulse Ox 92 92 O2 Delivery Nasal Cannula Nasal Cannula Nasal Cannula O2 Flow Rate 2.0 2.0 4.0 2/16/17 2/16/17 2/16/17 2/16/17 12:30 13:00 13:30 14:00 Pulse 102 102 58 104 Resp 25 35 B/P 87/64 91/54 93/58 103/60 Pulse Ox 93 95 O2 Delivery Nasal Cannula Nasal Cannula O2 Flow Rate 4.0 4.0 16/17 2/16/17 2/16/17 2/16/17 14:30 15:40 15:42 16:00 Pulse 106 116 116 Resp 39 B/P 93/60 Pulse Ox 93 O2 Delivery Nasal Cannula Nasal Cannula O2 Flow Rate 5.0 4.0 16/17 2/16/17 2/16/17 2/16/17 16:15 16:30 16:45 16:45 Temp 97.1 97.1 Pulse 114 120 114 114 Resp 40 44 32 B/P 83/47 101/56 126/46 126/46 Pulse Ox 91 85 88 O2 Delivery Nasal Cannula Nasal Cannula Nasal Cannula O2 Flow Rate 3.0 4.0 4.0 /16/17 2/16/17 2/16/17 2/16/17 17:00 17:00 17:00 17:04 Temp 96.3 96.3 Pulse 114 114 Resp 30 B/P 110/42 110/42 Pulse Ox 89 O2 Delivery Nasal Cannula Nasal Cannula O2 Flow Rate 4.0 4.0 2/16/17 2/16/17 2/16/17 2/16/17 17:15 17:15 17:15 17:30 Temp 96.3 96.3 Pulse 114 114 110 Resp 34 B/P 118/44 118/44 104/40 Pulse Ox 90 O2 Delivery Venturi Mask /16/17 2/16/17 2/16/17 2/16/17 17:30 17:30 17:34 17:35 Temp 96.4 96.4 Pulse 110 Resp 32 B/P 104/40 Pulse Ox 91 93 O2 Delivery Venturi Mask Nasal Cannula Venturi Mask O2 Flow Rate 4.0 15.0 16/17 2/16/17 2/16/17 2//17 17:45 17:45 17:45 18:00 Temp 96.6 96.6 Pulse 114 114 112 Resp 32 32 B/P 118/44 118/44 108/40 Pulse Ox 92 94 O2 Delivery Venturi Mask Venturi Mask 16/17 216/17 2/16/17 2/17 18:00 18:00 18:15 18:15 Temp 96.6 96.8 96.6 96.8 Pulse 112 114 B/P 108/40 112/42 07/30/17 2/16/17 2/16/17 2/17 18:30 18:30 18:45 18:45 Temp 97.2 97.5 97.2 97.5 Pulse 114 118 118 Resp 28 B/P 118/44 118/44 134/48 Pulse Ox 95 O2 Delivery Venturi Mask 07/30/17 2/16/17 2/16/17 2 19:00 19:00 19:55 20:00 Temp 97.5 97.5 Pulse 120 Resp 45 51 B/P 134/48 Pulse Ox 95 100 O2 Delivery Venturi Mask Venturi Mask Ventilator Mechanical Ventilator O2 Flow Rate 15.0 07/30/17 216/17 2/16/17 07/30/ 20:00 20:00 20:30 20:45 Temp 98.1 98.1 Pulse 112 112 Resp 26 B/P 84/32 84/32 76/31 72/30 Pulse Ox 95 O2 Delivery Ventilator 07/30/17 2/16/17 2/16/17 17 21:00 22:00 23:00 23:10 Temp 99.1 99.9 99.1 99.1 99.9 99.1 Pulse 110 114 126 Resp 26 30 30 B/P 94/40 100/46 114/44 145/54 Pulse Ox 95 95 95 O2 Delivery Ventilator Ventilator Ventilator 07/30/17 07/30/17 2//07/30/16 23:30 23:40 23:40 23:59 B/P 88/44 90/46 Pulse Ox 94 O2 Delivery Ventilator Mechanical Ventilator 07/31/16 07/31/16 07/31/16 07/31/16 00:00 00:00 00:15 01:00 Temp 99.3 99.1 99.3 99.1 Pulse 125 125 122 Resp 30 30 B/P 131/50 131/50 135/42 123/54 Pulse Ox 96 96 O2 Delivery Ventilator Ventilator 07/31/16 07/31/16 07/31/16 07/31/16 01:42 02:00 02:39 03:00 Temp 98.9 98.4 98.9 98.4 Pulse 119 122 Resp 30 30 B/P 130/56 96/47 91/46 Pulse Ox 94 95 96 O2 Delivery Ventilator Ventilator Ventilator 07/31/16 07/31/16 07/31/16 07/31/16 03:51 04:00 04:00 04:00 Temp 98.1 98.1 Pulse 110 110 Resp 30 B/P 116/51 116/51 Pulse Ox 93 93 O2 Delivery Ventilator Mechanical Ventilator Ventilator 07/31/16 07/31/16 07/31/16 07/31/16 05:00 05:30 06:00 07:21 Temp 98.2 98.4 98.2 98.4 Pulse 111 109 Resp 30 30 B/P 118/45 105/47 Pulse Ox 96 90 94 93 O2 Delivery Ventilator Ventilator Ventilator Ventilator Intake and Output 07/30/16 07/30/16 07/31/16 15:00 23:00 07:00 Intake Total 1496 ml Output Total 92 ml 129 ml 437 ml Balance -92 ml -129 ml 1059 ml LISSA ANTOINE MD Jul 31, 2016 08:10
--- NOTE | 2016-07-31 08:23 | PDOC ---
Infectious Disease Note Subjective Subjective events noted, now intubated on vent ROS ROS unable to do Vital Sign Vital Signs Vital Signs Date Time Temp Pulse Resp B/P Pulse Ox O2 Delivery O2 Flow Rate FiO2 07/31/16 07:21 93 Ventilator 07/31/16 06:00 98.4 109 30 105/47 98.4 07/30/16 19:00 15.0 Physical Exam PHYSICAL EXAM GENERAL: sedated on vent HEENT: PERRL, OC/OP NECK: Supple, no JVD, no LN LUNGS: Clear HEART: S1S2, no gallop, no murmur ABD: Soft, NT, no organomegaly, no rebound,, EC fistula EXT: No edema, no cyanosis RN INTERNSHIP: sedated on vent SKIN: No rash IV: ok Labs Lab Laboratory Tests Test 07/30/16 11:02 07/30/16 13:25 07/30/16 16:38 07/30/16 19:40 O2 Saturation 88% (92-99) 99% (92-99) Arterial Blood pH 7.23 (7.35-7.45) 7.32 (7.35-7.45) Arterial Blood pCO2 at Patient Temp 37mmHg (35-46) 30mmHg (35-46) Arterial Blood pO2 at Patient Temp 65mmHg (65-108) 307mmHg (65-108) Arterial Blood HCO3 15mmol/L (21-28) 15mmol/L (21-28) Arterial Blood Base Excess -12mmol/L (-3-3) -10mmol/L (-3-3) FiO2 28 100 Lactic Acid Level 3.3mmol/L (0.4-2.0) Sodium Level 144mmol/L (136-145) Potassium Level 4.0mmol/L (3.5-5.1) Chloride Level 111mmol/L (98-107) Carbon Dioxide Level 17mmol/L (21-32) Anion Gap 16 (6-14) Blood Urea Nitrogen 41mg/dL (7-20) Creatinine 2.0mg/dL (0.6-1.0) Estimated GFR (Cockcroft-Gault) 30.6 Glucose Level 61mg/dL (70-99) Calcium Level 8.0mg/dL (8.5-10.1) Phosphorus Level 4.1mg/dL (2.6-4.7) Albumin 2.1g/dL (3.4-5.0) Test 07/31/16 05:10 White Blood Count 4.6x10^3/uL (4.0-11.0) Red Blood Count 3.36x10^6/uL (3.50-5.40) Hemoglobin 8.6g/dL (12.0-15.5) Hematocrit 26.9% (36.0-47.0) Mean Corpuscular Volume 80fL (79-100) Mean Corpuscular Hemoglobin 26pg (25-35) Mean Corpuscular Hemoglobin Concent 32g/dL (31-37) Red Cell Distribution Width 20.2% (11.5-14.5) Platelet Count 78x10^3/uL (140-400) Neutrophils (%) (Auto) 80% (31-73) Lymphocytes (%) (Auto) 13% (24-48) Monocytes (%) (Auto) 6% (0-9) Eosinophils (%) (Auto) 1% (0-3) Basophils (%) (Auto) 1% (0-3) Neutrophils # (Auto) 3.6x10^3uL (1.8-7.7) Lymphocytes # (Auto) 0.6x10^3/uL (1.0-4.8) Monocytes # (Auto) 0.3x10^3/uL (0.0-1.1) Eosinophils # (Auto) 0.0x10^3/uL (0.0-0.7) Basophils # (Auto) 0.0x10^3/uL (0.0-0.2) Sodium Level 146mmol/L (136-145) Potassium Level 3.7mmol/L (3.5-5.1) Chloride Level 109mmol/L (98-107) Carbon Dioxide Level 20mmol/L (21-32) Anion Gap 17 (6-14) Blood Urea Nitrogen 45mg/dL (7-20) Creatinine 2.6mg/dL (0.6-1.0) Estimated GFR (Cockcroft-Gault) 22.6 Glucose Level 79mg/dL (70-99) Calcium Level 8.0mg/dL (8.5-10.1) Magnesium Level 3.1mg/dL (1.8-2.4) Micro BC yeast Objective Assessment Fever and chills - Acute Anemia - s/p PRBCs Urine MDR Enterobacter and Amp res Enterococcus 2/1 EC fistula Enterovesicular fistula Abdominal excoriation Fungemia ARF Respiratory failure Plan Plan of Care cont micafungin . supportive care d/w dr Cisneros d/w daughter JOSSY TATUM MD Jul 31, 2016 08:23
--- NOTE | 2016-07-31 08:30 | CONS ---
DATE OF CONSULTATION: 07/30/2016 ATTENDING PHYSICIAN: Dr. Roderick Cisneros REASON FOR CONSULTATION: The patient is seen in Pulmonary Critical Care consultation at the request of Dr. Cisneros for hypotension, sepsis, and hypoxemia. HISTORY OF PRESENT ILLNESS: The patient is a 61-year-old who was initially admitted on 07/16/2016. She has a history of enterocutaneous fistula and enterovesical fistula, maintained on home TPN via PICC line. She presented to the Emergency Room with fever. She was noticed to have some dysuria. She had a temperature of 101. The patient was admitted and treated with antibiotics. She was seen in consultation by the Infectious Disease service. She was also started on Diflucan. Today she became short of air, hypoxic, and hypotensive. She was transferred to the Intensive Care unit and was started on IV fluids. She was also started on Levophed. Infectious Disease Service discontinued her dapsone and Zosyn. She is currently on micafungin for fungemia. She has acute renal failure. She has been seen by the Nephrology service. She has also had some mental status change and has been seen by Neurology with a diagnosis of metabolic and toxic encephalopathy. The patient is awake, follows commands. She has a cough, mostly nonproductive. No chest pain or pressure. PAST MEDICAL HISTORY: As indicated above. In addition, she has prior sepsis secondary to Escherichia coli, prior influenza, enterocutaneous fistula, enterovesical fistula, and [id number] protein malnutrition. PAST SURGICAL HISTORY: She has had appendectomy, cholecystectomy, tonsillectomy, and hysterectomy. She has had five abdominal fistula repairs which were failed. SOCIAL HISTORY: She denies any alcohol or tobacco. FAMILY HISTORY: Noncontributory. REVIEW OF SYSTEMS: As indicated above. Otherwise, a 10-point system was reviewed and negative. PHYSICAL EXAMINATION: GENERAL: The patient was in no significant respiratory distress, currently on 2 liters, receiving IV fluids. She had a T-max of 100.9. She is awake, alert, somewhat sleepy, but follows commands. HEENT: Eyes, the sclerae were nonicteric. NECK: Jugular venous distention was not elevated. No lymphadenopathy. CHEST: Full expansion. LUNGS: Bilateral crackles compatible with possibly pulmonary edema. CARDIOVASCULAR: Regular rate and rhythm with S1, S2. No S3. ABDOMEN: Evidence of previous multiple surgeries. There is evidence of a fistula with drainage of green material. EXTREMITIES: No clubbing, cyanosis, or edema. NEUROLOGIC: The patient was awake, alert, and following commands. A detailed neurologic exam was not performed. LABORATORY DATA: Reviewed. White count was 4. Hemoglobin and hematocrit were noted. Electrolytes were noted. Arterial Blood Gas: pH of 7.23, PaCO2 of 37, PaO2 of 65, bicarbonate of 15. Clostridium difficile toxin has been checked and negative x 2. IMAGING: Chest x-ray was personally reviewed. There were bilateral pulmonary infiltrates suggestive of pulmonary edema, possible pneumonia. IMPRESSION: 1. Acute respiratory failure, multifactorial. 2. Septic shock. 3. Bilateral pulmonary infiltrates compatible with pulmonary edema, possible pneumonia. 4. Fungemia. 5. Chronic enterocutaneous fistula. 6. Metabolic toxic encephalopathy. 7. Acute renal failure. 8. Cdxryarl-bs-fctdiw protein malnutrition, present upon admission. 9. Metabolic acidosis. PLAN: 1. Continue current support with intravenous fluids and Levophed. 2. Micafungin. 3. I suspect her pulmonary infiltrates are related to either acute lung injury from sepsis versus cardiogenic pulmonary edema, consult Cardiology, already performed. 4. Deep venous thrombosis and gastrointestinal prophylaxes. 5. Continue total parenteral nutrition for nutritional support. Dr. Cisneros, I do appreciate the privilege in sharing in the patient's care. Total cumulative critical care time of 35 minutes. WENDI GRAY MD DR: SOLANGE/jd JOB#: [id number] / [id number]
--- NOTE | 2016-07-31 08:34 | RAD ---
Portable chest, 07/31/2016: History: Follow-up pulmonary infiltrates Comparison is made to yesterday evenings study at 8:36 PM. The patient is rotated to the right. The tip of the ET tube lies well above the deborah. An NG tube extends into the stomach. A Coello-Vero type catheter enters the right heart from the inferior vena cava with its tip overlying the right hilum. A right jugular central venous catheter extends to the level of the atriocaval junction. The heart size is unchanged. Moderate bilateral pulmonary infiltrates appear to have worsened slightly. The underlying pulmonary vascularity is obscured. No pleural fluid or pneumothorax is evident. IMPRESSION: 1. Numerous tubes and catheters are unchanged in positions as described above. 2. Slight interval worsening of the diffuse bilateral pulmonary infiltrates.
[2016-07-31] MEDS ORDERED: TIGECYCLINE 100 MG in IV NORMAL SALINE 100ML 100 ML IV ONE (09:00)
[2016-07-31] MEDS: ZINC OXIDE 20% TOPICAL OINTMENT 28GM TUBE. TP SCH ×2 (09:17→21:12)
[2016-07-31] MEDS: LIDOCAINE 5% TOPICAL OINTMENT 35GM TUBE. TP SCH ×2 (09:17→21:12)
[2016-07-31] MEDS: IV NORMAL SALINE 1000ML BAG 1,000 ML IV SCH (09:17)
[2016-07-31] MEDS: PANTOPRAZOLE IV PUSH 40 MG VIAL. IVP SCH (09:20)
[2016-07-31 09:45] LABS: HCO3 ABG 19 mmol/L (21-28); PCO2 ABG 30 mmHg (35-46); PH ABG 7.41 (7.35-7.45); PO2 ABG 59 mmHg (65-108); SAT O2 ABG 88 % (92-99)
[2016-07-31 09:52] LABS: FIO2 ABG 60
--- NOTE | 2016-07-31 10:20 | PDOC ---
PROGRESS NOTES Subjective Subjective Patient was intubated overnight for worsening respiratory distress. Her urine output has picked up overnight and into the morning. Objective Objective Vital Signs Date Time Temp Pulse Resp B/P Pulse Ox O2 Delivery O2 Flow Rate FiO2 07/31/16 07:21 93 Ventilator 07/31/16 06:00 98.4 109 30 105/47 98.4 07/30/16 19:00 15.0 Intake and Output 07/31/16 07:00 Intake Total 1496 ml Output Total 658 ml Balance 838 ml IV Total 1496 ml Output Urine Total 658 ml Physical Exam Abdomen: Soft, Other (enterocutaneous fistula) Heart: No murmurs, Other (tachycadic in the 110s) Extremities: No clubbing, No cyanosis, Normal pulses, Other (mild peripheral edema) General: Other (Sedated on the vent) Lungs: Other (On vent support, diffuse bilateral rales and rhonchi) Neck: No JVD Neuro: Other (Sedated) Assessment Assessment Ms Miller is a 61 year old with history of enterocutaneous fistula and TPN dependency admitted with UTI on 07/15/16 now in septic shock on ventillatino and pressure support. She was intubated overnight for decline in respiratory status. Despite an increase in urine output her renal function is declinine with BUN/Cr elevating to 45/2.6 from 32/1.7 since yesterday. Her lactic acid is elevated at 4.7 as of this morning. From a cardiac standpoint her pulmonary edema is likely non cardiogenic in nature as an echo completed on 07/30 showed normal systolic function with EF of 69%; wedge pressure of 12 mmHg this morning, likely still due to intravascular depletion. Problems Medical Problems: (1) Abdominal pain Status: Acute (2) Enterocutaneous fistula Status: Acute (3) Sepsis Status: Acute (4) Urinary tract infection Status: Acute (5) UTI (urinary tract infection) Status: Acute Plan Plan of Care Etiology of pulmonary and peripheral edema is likely non cardiogenic in nature. Will give patient 200 mL of albumin 25% and recommend continuing with current supportive measures. Comment Review of Relevant I have reviewed the following items lucila (where applicable) has been applied. Labs Laboratory Tests Test 07/30/16 06:55 07/30/16 06:58 07/30/16 11:02 07/30/16 13:25 Sodium Level 142mmol/L (136-145) Potassium Level 3.8mmol/L (3.5-5.1) Chloride Level 111mmol/L (98-107) Carbon Dioxide Level 16mmol/L (21-32) Anion Gap 15 (6-14) Blood Urea Nitrogen 32mg/dL (7-20) Creatinine 1.7mg/dL (0.6-1.0) Estimated GFR (Cockcroft-Gault) 37.0 Glucose Level 116mg/dL (70-99) Calcium Level 8.1mg/dL (8.5-10.1) Phosphorus Level 3.9mg/dL (2.6-4.7) White Blood Count 4.0x10^3/uL (4.0-11.0) Red Blood Count 3.49x10^6/uL (3.50-5.40) Hemoglobin 9.3g/dL (12.0-15.5) Hematocrit 28.8% (36.0-47.0) Mean Corpuscular Volume 83fL (79-100) Mean Corpuscular Hemoglobin 27pg (25-35) Mean Corpuscular Hemoglobin Concent 32g/dL (31-37) Red Cell Distribution Width 20.3% (11.5-14.5) Platelet Count 107x10^3/uL (140-400) Neutrophils (%) (Auto) 93% (31-73) Lymphocytes (%) (Auto) 3% (24-48) Monocytes (%) (Auto) 2% (0-9) Eosinophils (%) (Auto) 0% (0-3) Basophils (%) (Auto) 1% (0-3) Neutrophils # (Auto) 3.7x10^3uL (1.8-7.7) Lymphocytes # (Auto) 0.1x10^3/uL (1.0-4.8) Monocytes # (Auto) 0.1x10^3/uL (0.0-1.1) Eosinophils # (Auto) 0.0x10^3/uL (0.0-0.7) Basophils # (Auto) 0.0x10^3/uL (0.0-0.2) O2 Saturation 88% (92-99) Arterial Blood pH 7.23 (7.35-7.45) [facility]35-46[facility] Arterial Blood pO2 at Patient Temp 65mmHg (65-108) Arterial Blood HCO3 15mmol/L (21-28) Arterial Blood Base Excess -12mmol/L (-3-3) FiO2 28 Lactic Acid Level 3.3mmol/L (0.4-2.0) Test 07/30/16 16:38 07/30/16 19:40 07/31/16 05:10 07/31/16 07:15 Sodium Level 144mmol/L (136-145) 146mmol/L (136-145) Potassium Level 4.0mmol/L (3.5-5.1) 3.7mmol/L (3.5-5.1) Chloride Level 111mmol/L (98-107) 109mmol/L (98-107) Carbon Dioxide Level 17mmol/L (21-32) 20mmol/L (21-32) Anion Gap 16 (6-14) 17 (6-14) Blood Urea Nitrogen 41mg/dL (7-20) 45mg/dL (7-20) Creatinine 2.0mg/dL (0.6-1.0) 2.6mg/dL (0.6-1.0) Estimated GFR (Cockcroft-Gault) 30.6 22.6 Glucose Level 61mg/dL (70-99) 79mg/dL (70-99) Calcium Level 8.0mg/dL (8.5-10.1) 8.0mg/dL (8.5-10.1) Phosphorus Level 4.1mg/dL (2.6-4.7) Albumin 2.1g/dL (3.4-5.0) O2 Saturation 99% (92-99) Arterial Blood pH 7.32 (7.35-7.45) Arterial Blood pCO2 at Patient Temp 30mmHg (35-46) Arterial Blood pO2 at Patient Temp 307mmHg (65-108) Arterial Blood HCO3 15mmol/L (21-28) Arterial Blood Base Excess -10mmol/L (-3-3) FiO2 100 White Blood Count 4.6x10^3/uL (4.0-11.0) Red Blood Count 3.36x10^6/uL (3.50-5.40) Hemoglobin 8.6g/dL (12.0-15.5) Hematocrit 26.9% (36.0-47.0) Mean Corpuscular Volume 80fL (79-100) Mean Corpuscular Hemoglobin 26pg (25-35) Mean Corpuscular Hemoglobin Concent 32g/dL (31-37) Red Cell Distribution Width 20.2% (11.5-14.5) Platelet Count 78x10^3/uL (140-400) Neutrophils (%) (Auto) 80% (31-73) Lymphocytes (%) (Auto) 13% (24-48) Monocytes (%) (Auto) 6% (0-9) Eosinophils (%) (Auto) 1% (0-3) Basophils (%) (Auto) 1% (0-3) Neutrophils # (Auto) 3.6x10^3uL (1.8-7.7) Lymphocytes # (Auto) 0.6x10^3/uL (1.0-4.8) Monocytes # (Auto) 0.3x10^3/uL (0.0-1.1) Eosinophils # (Auto) 0.0x10^3/uL (0.0-0.7) Basophils # (Auto) 0.0x10^3/uL (0.0-0.2) Magnesium Level 3.1mg/dL (1.8-2.4) Lactic Acid Level 4.7mmol/L (0.4-2.0) Test 07/31/16 08:00 O2 Saturation 88% (92-99) Arterial Blood pH 7.41 (7.35-7.45) Arterial Blood pCO2 at Patient Temp 30mmHg (35-46) Arterial Blood pO2 at Patient Temp 59mmHg (65-108) Arterial Blood HCO3 19mmol/L (21-28) Arterial Blood Base Excess -5mmol/L (-3-3) FiO2 60 Laboratory Tests Test 07/30/16 11:02 07/30/16 13:25 07/30/16 16:38 07/30/16 19:40 O2 Saturation 88% (92-99) 99% (92-99) Arterial Blood pH 7.23 (7.35-7.45) 7.32 (7.35-7.45) Arterial Blood pCO2 at Patient Temp 37mmHg (35-46) 30mmHg (35-46) Arterial Blood pO2 at Patient Temp 65mmHg (65-108) 307mmHg (65-108) Arterial Blood HCO3 15mmol/L (21-28) 15mmol/L (21-28) Arterial Blood Base Excess -12mmol/L (-3-3) -10mmol/L (-3-3) FiO2 28 100 Lactic Acid Level 3.3mmol/L (0.4-2.0) Sodium Level 144mmol/L (136-145) Potassium Level 4.0mmol/L (3.5-5.1) Chloride Level 111mmol/L (98-107) Carbon Dioxide Level 17mmol/L (21-32) Anion Gap 16 (6-14) Blood Urea Nitrogen 41mg/dL (7-20) Creatinine 2.0mg/dL (0.6-1.0) Estimated GFR (Cockcroft-Gault) 30.6 Glucose Level 61mg/dL (70-99) Calcium Level 8.0mg/dL (8.5-10.1) Phosphorus Level 4.1mg/dL (2.6-4.7) Albumin 2.1g/dL (3.4-5.0) Test 07/31/16 05:10 07/31/16 07:15 07/31/16 08:00 White Blood Count 4.6x10^3/uL (4.0-11.0) Red Blood Count 3.36x10^6/uL (3.50-5.40) Hemoglobin 8.6g/dL (12.0-15.5) Hematocrit 26.9% (36.0-47.0) Mean Corpuscular Volume 80fL (79-100) Mean Corpuscular Hemoglobin 26pg (25-35) Mean Corpuscular Hemoglobin Concent 32g/dL (31-37) Red Cell Distribution Width 20.2% (11.5-14.5) Platelet Count 78x10^3/uL (140-400) Neutrophils (%) (Auto) 80% (31-73) Lymphocytes (%) (Auto) 13% (24-48) Monocytes (%) (Auto) 6% (0-9) Eosinophils (%) (Auto) 1% (0-3) Basophils (%) (Auto) 1% (0-3) Neutrophils # (Auto) 3.6x10^3uL (1.8-7.7) Lymphocytes # (Auto) 0.6x10^3/uL (1.0-4.8) Monocytes # (Auto) 0.3x10^3/uL (0.0-1.1) Eosinophils # (Auto) 0.0x10^3/uL (0.0-0.7) Basophils # (Auto) 0.0x10^3/uL (0.0-0.2) Sodium Level 146mmol/L (136-145) Potassium Level 3.7mmol/L (3.5-5.1) Chloride Level 109mmol/L (98-107) Carbon Dioxide Level 20mmol/L (21-32) Anion Gap 17 (6-14) Blood Urea Nitrogen 45mg/dL (7-20) Creatinine 2.6mg/dL (0.6-1.0) Estimated GFR (Cockcroft-Gault) 22.6 Glucose Level 79mg/dL (70-99) Calcium Level 8.0mg/dL (8.5-10.1) Magnesium Level 3.1mg/dL (1.8-2.4) Lactic Acid Level 4.7mmol/L (0.4-2.0) O2 Saturation 88% (92-99) Arterial Blood pH 7.41 (7.35-7.45) Arterial Blood pCO2 at Patient Temp 30mmHg (35-46) Arterial Blood pO2 at Patient Temp 59mmHg (65-108) Arterial Blood HCO3 19mmol/L (21-28) Arterial Blood Base Excess -5mmol/L (-3-3) FiO2 60 Microbiology 07/28/16 Blood Culture - Preliminary, Resulted 07/28/16 Blood Culture Result 1 (ROYA) - Preliminary, Resulted 07/15/16 Urine Culture - Final, Complete 07/15/16 Urine Culture Result 1 (ROYA) - Final, Complete 07/15/16 Urine Culture Result 2 (ROYA) - Final, Complete 07/15/16 Antimicrobic Susceptibility - Final, Complete 07/29/16 Aerobic Culture - Preliminary, Resulted 07/29/16 Aerobic Culture Result 1 (ROYA) - Preliminary, Resulted Medications Current Medications Piperacillin Sod/ Tazobactam Sod/ Sodium Chloride (Zosyn/Iv Sodium Chloride 0.9 % 100ml) 100 ml @ 200 mls/hr 1X ONCE IV Last administered on 07/15/16 22:56; Start 07/15/16 at 22:00; Stop 07/15/16 at 22:29; Status DC Fentanyl Citrate 50 mcg 50 mcg PRN Q15MIN PRN IV PAIN GREATER THAN 3/10 Last administered on 07/16/16 00:30; Start 07/15/16 at 21:45; Stop 07/16/16 at 02:00; Status DC Sodium Chloride 1,000 ml @ 1,000 mls/hr 1X ONCE IV Last administered on 21:59; Start 07/15/16 at 22:00; Stop 07/15/16 at 22:59; Status DC Sodium Chloride (Iv Sodium Chloride 0.9% 500ml Bag) 500 ml @ 500 mls/hr 1X ONCE IV Last administered on 07/15/16 22:00; Start 07/15/16 at 22:00; Stop at 22:59; Status DC Ondansetron HCl (Zofran) 4 mg PRN Q8HRS PRN IV NAUSEA/VOMITING; Start 07/15/16 at 23:30; Stop 07/16/16 at 08:52; Status DC Fentanyl Citrate 50 mcg 50 mcg PRN Q2HR PRN IV SEVERE PAIN Last administered on 07/16/16 08:10; Start 07/15/16 at 23:30; Stop 07/16/16 at 08:52; Status DC Sodium Chloride (Iv Sodium Chloride 0.9% 1000ml Bag) 1,000 ml @ 150 mls/hr Q6H40M IV Last administered on 07/15/16 02:00; Start 07/15/16 at 23:45; Stop 07/16/16 at 08:52; Status DC Acetaminophen (Tylenol) 650 mg PRN Q4HRS PRN PO FEVER; Start 07/15/16 at 23:30; Stop 07/16/16 at 23:29; Status DC Info (Do NOT chart on this placeholder) 1 each PRN DAILY PRN MC NEEDS VERIFICATION; Start 07/16/16 at 03:00; Status Cancel Acetaminophen 650 mg 650 mg PRN Q4HRS PRN PO MILD PAIN / TEMP Last administered on 07/28/16 07:42; Start 07/16/16 at 08:45; Stop 07/29/16 at 08:33 ; Status DC Piperacillin Sod/ Tazobactam Sod 3.375 gm/Sodium Chloride 50 ml @ 100 mls/hr Q6HRS IV Last administered on 07/18/16 05:50; Start 07/16/16 at 10:00; Stop 07/18 at 13:28; Status DC Linezolid (Zyvox Premix) 300 ml @ 300 mls/hr Q12HR IV Last administered on 07/18 08:34; Start 07/16/16 at 10:00; Stop 07/18/16 at 13:28; Status DC Hydromorphone HCl (Dilaudid) 2 mg PRN Q4HRS PRN IV MODERATE PAIN Last administered on 07/28/16 23:33; Start 07/16/16 at 08:45 Hydromorphone HCl (Dilaudid) 4 mg PRN Q4HRS PRN IV SEVERE PAIN Last administered on 07/30/16 09:23; Start 07/16/16 at 08:45 Pantoprazole Sodium (Protonix) 40 mg DAILYAC PO Last administered on 07/27/16 11:11; Start 07/16/16 at 09:30; Stop 07/29/16 at 08:44; Status DC Hyoscyamine (Anaspaz) 0.125 mg Q6HRS PO Last administered on 07/20/16 05:20; Start 07/16/16 at 12:00; Stop 07/20/16 at 08:58; Status DC Phenazopyridine HCl (Pyridium) 200 mg TID PO Last administered on 07/20/16 08: 25; Start 07/16/16 at 09:30; Stop 07/20/16 at 08:58; Status DC Lorazepam (Ativan) 0.5 mg PRN BID PRN PO ANXIETY / AGITATION Last administered on 07/29/16 02:16; Start 07/16/16 at 08:45 Simethicone (Gas-X) 80 mg PRN Q4HRS PRN PO GAS / BLOATING Last administered on 07/24/16 22:30; Start 07/16/16 at 08:45 Zolpidem Tartrate 5 mg 5 mg PRN QHS PRN PO INSOMNIA Last administered on 23:14; Start 07/16/16 at 08:45 Potassium Chloride/Dextrose/ Sod Cl 1,000 ml @ 80 mls/hr [id number] IV Last administered on 07/16/16 10:54; Start 07/16/16 at 09:30; Stop 07/16/16 at 21:59; Status DC Fluconazole/ Sodium Chloride (Diflucan 200mg/ 100ml Premix) 100 ml @ 100 mls/ hr Q24H IV Last administered on 07/18/16 11:43; Start 07/16/16 at 11:00; Stop at 13:28; Status DC Info 1 each 1 each PRN DAILY PRN MC SEE COMMENTS Last administered on 09:27; Start 07/16/16 at 10:00 Sodium Chloride 220 meq/Sodium Acetate 90 meq/ Potassium Chloride 50 meq/ Potassium Acetate 15 meq/Potassium Phosphate 10 mmol/ Magnesium Sulfate 50 meq/ Calcium Gluconate 6 meq/ Multivitamins/ Minerals 10 ml/ Chromium/Copper/ Manganese/Seleni/ Zn 1 ml/Total Parenteral Nutrition/Amino Acids/Dextro... 1, 920 ml @ 80 mls/hr TPN CONT IV ; Start 07/16/16 at 22:00; Stop 07/16/16 at 22:00 ; Status DC Sodium Chloride/ Sodium Acetate/ Potassium Chloride/ Potassium Acetate/ Potassium Phosphate/ Magnesium Sulfate/ Calcium Gluconate/ Multivitamins/ Minerals/Chromium/ Copper/Manganese/ Seleni/Zn/Total Parenteral Nutrition/Amino Acids/Dextrose/ Fat Emulsion Intravenous (Sodium Chlori... 1,820 ml @ 75.833 mls/ hr TPN CONT IV Last administered on 07/16/16 21:03; Start 07/16/16 at 22: 00; Stop 07/17/16 at 21:59; Status DC Ondansetron HCl (Zofran) 4 mg PRN Q6HRS PRN IV NAUSEA/VOMITING Last administered on 07/21/16 08:48; Start 07/16/16 at 17:15 Diphenhydramine HCl (Benadryl) 25 mg PRN Q6HRS PRN PO ITCHING Last administered on 07/25/16 23:38; Start 07/16/16 at 17:45 Lidocaine (Xylocaine) 1 sang BID TP Last administered on 07/31/16 09:17; Start 07/17/16 at 09:00 Zinc Oxide 1 sang 1 sang BID TP Last administered on 07/31/16 09:17; Start at 09:30 Sodium Chloride/ Sodium Acetate/ Potassium Chloride/ Potassium Acetate/ Potassium Phosphate/ Magnesium Sulfate/ Calcium Gluconate/ Multivitamins/ Minerals/Chromium/ Copper/Manganese/ Seleni/Zn/Total Parenteral Nutrition/Amino Acids/Dextrose/ Fat Emulsion Intravenous (Sodium Chlori... 1,920 ml @ 80 mls/ hr TPN CONT IV Last administered on 07/17/16 22:13; Start 07/17/16 at 22:00; Stop 07/18/16 at 21:59; Status DC Furosemide 40 mg 40 mg 1X ONCE IVP Last administered on 07/18/16 11:43; Start 07/18/16 at 11:00; Stop 07/18/16 at 11:07; Status DC Sodium Chloride 220 meq/Sodium Acetate 90 meq/ Potassium Chloride 50 meq/ Potassium Acetate 15 meq/Potassium Phosphate 10 mmol/ Magnesium Sulfate 50 meq/ Calcium Gluconate 3 meq/ Multivitamins/ Minerals 10 ml/ Chromium/Copper/ Manganese/Seleni/ Zn 1 ml/Total Parenteral Nutrition/Amino Acids/Dextro... 1, 920 ml @ 80 mls/hr TPN CONT IV Last administered on 07/19/16 00:03; Start 07/18/16 at 22:00; Stop 07/19/16 at 21:59; Status DC Meropenem 1 gm/ Sodium Chloride 100 ml @ 200 mls/hr Q8HRS IV Last administered on 07/20/16 05:21; Start 07/18/16 at 14:00; Stop 07/20/16 at 11:25; Status DC Micafungin Sodium 100 mg/Dextrose 100 ml @ 100 mls/hr Q24H IV Last administered on 07/19/16 15:05; Start 07/18/16 at 14:00; Stop 07/20/16 at 11:25; Status DC Daptomycin/Sodium Chloride (Cubicin/Iv Sodium Chloride 0.9% 50ml) 50 ml @ 100 mls/hr Q24H IV Last administered on 07/19/16 16:56; Start 07/18/16 at 15:00; Stop 07/20/16 at 11:25; Status DC Alteplase, Recombinant (Cathflo) 2 mg 1X ONCE INT CAT Last administered on 07/19 06:24; Start 07/19/16 at 07:00; Stop 07/19/16 at 07:01; Status DC Gentamicin Sulfate 1 each 1 each PRN DAILY PRN MC SEE COMMENTS Last administered on 07/25/16 15:31; Start 07/19/16 at 12:15; Stop 07/25/16 at 16:14 ; Status DC Gentamicin Sulfate/Sodium Chloride (Iv Sodium Chloride 0.9% 100ml) 106.75 ml @ 106.75 mls/hr Q24H IV Last administered on 07/25/16 15:31; Start 07/19/16 at 13 :00; Stop 07/25/16 at 16:12; Status DC Gentamicin Sulfate 1 each 1 each 1X ONCE MC Last administered on 07/19/16 23: 00; Start 07/19/16 at 23:00; Stop 07/19/16 at 23:01; Status DC Sodium Chloride/ Sodium Acetate/ Potassium Chloride/ Potassium Acetate/ Potassium Phosphate/ Magnesium Sulfate/ Calcium Gluconate/ Multivitamins/ Minerals/Chromium/ Copper/Manganese/ Seleni/Zn/Total Parenteral Nutrition/Amino Acids/Dextrose/ Fat Emulsion Intravenous (Sodium Chlori... 1,920 ml @ 80 mls/ hr TPN CONT IV Last administered on 07/19/16 20:51; Start 07/19/16 at 22:00; Stop 07/20/16 at 21:59; Status DC Hyoscyamine (Anaspaz) 0.125 mg PRN Q6HRS PRN PO BLADDER SPASM; Start 07/20/16 at 09:00 Phenazopyridine HCl 200 mg 200 mg PRN TID PRN PO BLADDER SPASM Last administered on 07/21/16 20:14; Start 07/20/16 at 09:00 Linezolid 300 ml @ 300 mls/hr Q12HR IV Last administered on 07/25/16 09:02; Start 07/20/16 at 12:00; Stop 07/25/16 at 16:12; Status DC Sodium Chloride 220 meq/Sodium Acetate 90 meq/ Potassium Chloride 50 meq/ Potassium Acetate 15 meq/Potassium Phosphate 10 mmol/ Magnesium Sulfate 50 meq/ Calcium Gluconate 3 meq/ Multivitamins/ Minerals 10 ml/ Chromium/Copper/ Manganese/Seleni/ Zn 1 ml/Total Parenteral Nutrition/Amino Acids/Dextro... 1, 920 ml @ 80 mls/hr TPN CONT IV Last administered on 07/20/16 21:30; Start 07/20/16 at 22:00; Stop 07/21/16 at 21:59; Status DC Sodium Chloride/ Sodium Acetate/ Potassium Chloride/ Potassium Acetate/ Potassium Phosphate/ Magnesium Sulfate/ Multivitamins/ Minerals/Chromium/ Copper /Manganese/ Seleni/Zn/Total Parenteral Nutrition/Amino Acids/Dextrose/ Fat Emulsion Intravenous (Sodium Chloride/ Potass... 1,920 ml @ 80 mls/hr TPN CONT IV Last administered on 07/21/16 22:05; Start 07/21/16 at 22:00; Stop at 21:59; Status DC Alteplase, Recombinant 2 mg 2 mg PRN DAILY PRN INT CAT INFLAMMATION Last administered on 07/27/16 11:31; Start 07/21/16 at 15:00 Sodium Chloride 220 meq/Sodium Acetate 90 meq/ Potassium Chloride 50 meq/ Potassium Acetate 15 meq/Potassium Phosphate 10 mmol/ Magnesium Sulfate 50 meq/ Multivitamins/ Minerals 10 ml/ Chromium/Copper/ Manganese/Seleni/ Zn 1 ml/Total Parenteral Nutrition/Amino Acids/Dextrose/ Fat Emuls... 1,920 ml @ 80 mls/hr TPN CONT IV Last administered on 07/22/16 20:53; Start 07/22/16 at 22:00; Stop 07/23/16 at 21:59; Status DC Sodium Chloride/ Sodium Acetate/ Potassium Chloride/ Potassium Acetate/ Potassium Phosphate/ Magnesium Sulfate/ Multivitamins/ Minerals/Chromium/ Copper /Manganese/ Seleni/Zn/Total Parenteral Nutrition/Amino Acids/Dextrose/ Fat Emulsion Intravenous (Sodium Chloride/ Potass... 1,920 ml @ 80 mls/hr TPN CONT IV Last administered on 07/23/16 21:16; Start 07/23/16 at 22:00; Stop 07/24 at 21:59; Status DC Gentamicin Sulfate 1 each 1 each 1X ONCE MC ; Start 07/23/16 at 22:00; Stop 07/23 at 22:01; Status Cancel Sodium Chloride/ Sodium Acetate/ Potassium Chloride/ Potassium Acetate/ Potassium Phosphate/ Magnesium Sulfate/ Multivitamins/ Minerals/Chromium/ Copper /Manganese/ Seleni/Zn/Total Parenteral Nutrition/Amino Acids/Dextrose/ Fat Emulsion Intravenous (Sodium Chloride/ Potass... 1,920 ml @ 80 mls/hr TPN CONT IV Last administered on 07/24/16 21:15; Start 07/24/16 at 22:00; Stop 04/30 at 21:59; Status DC Gentamicin Sulfate 1 each 1X ONCE MC ; Start 07/25/16 at 12:30; Stop 07/25/16 at 12:31; Status Cancel Amlodipine Besylate 5 mg 5 mg DAILY PO Last administered on 07/27/16 11:12; Start 07/25/16 at 12:00; Stop 07/29/16 at 08:44; Status DC Sodium Chloride 220 meq/Sodium Acetate 90 meq/ Potassium Chloride 30 meq/ Potassium Acetate 15 meq/Potassium Phosphate 10 mmol/ Magnesium Sulfate 50 meq/ Multivitamins/ Minerals 10 ml/ Chromium/Copper/ Manganese/Seleni/ Zn 1 ml/Total Parenteral Nutrition/Amino Acids/Dextrose/ Fat Emuls... 1,920 ml @ 80 mls/hr TPN CONT IV Last administered on 07/25/16 22:25; Start 07/25/16 at 22:00; Stop 07/26/16 at 21:59; Status DC Sodium Chloride/ Sodium Acetate/ Potassium Chloride/ Potassium Acetate/ Potassium Phosphate/ Magnesium Sulfate/ Multivitamins/ Minerals/Chromium/ Copper /Manganese/ Seleni/Zn/Total Parenteral Nutrition/Amino Acids/Dextrose/ Fat Emulsion Intravenous (Sodium Chloride/ Potass... 1,920 ml @ 80 mls/hr TPN CONT IV Last administered on 07/26/16 23:16; Start 07/26/16 at 22:00; Stop at 21:59; Status DC Furosemide 20 mg 20 mg 1X ONCE IVP Last administered on 07/27/16 11:31; Start 07/27/16 at 09:00; Stop 07/27/16 at 09:01; Status DC Daptomycin 340 mg/ Sodium Chloride 50 ml @ 100 mls/hr Q24H IV Last administered on 07/29/16 15:05; Start 07/27/16 at 13:00; Stop 07/30/16 at 07:25 ; Status DC Piperacillin Sod/ Tazobactam Sod 3.375 gm/Sodium Chloride 50 ml @ 100 mls/hr Q6HRS IV Last administered on 07/30/16 05:30; Start 07/27/16 at 12:30; Stop at 07:25; Status DC Fluconazole/ Sodium Chloride 100 ml @ 100 mls/hr Q24H IV Last administered on 07/28/16 13:32; Start 07/27/16 at 13:00; Stop 07/29/16 at 00:53; Status DC Sodium Chloride 1,000 ml @ 1,000 mls/hr 1X ONCE IV Last administered on 12:34; Start 07/27/16 at 12:30; Stop 07/27/16 at 13:29; Status DC Sodium Chloride 220 meq/Sodium Acetate 90 meq/ Potassium Chloride 30 meq/ Potassium Acetate 15 meq/Potassium Phosphate 10 mmol/ Magnesium Sulfate 45 meq/ Multivitamins/ Minerals 10 ml/ Chromium/Copper/ Manganese/Seleni/ Zn 1 ml/Total Parenteral Nutrition/Amino Acids/Dextrose/ Fat Emuls... 1,920 ml @ 80 mls/hr TPN CONT IV Last administered on 07/27/16 22:38; Start 07/27/16 at 22:00; Stop 07/28/16 at 21:59; Status DC Sodium Chloride (Iv Sodium Chloride 0.9% 1000ml Bag) 1,000 ml @ 45 mls/hr [id number] IV Last administered on 07/28/16 03:24; Start 07/27/16 at 17:00; Stop 07/28/16 at 10:27; Status DC Acetaminophen 650 mg 650 mg PRN Q6HRS PRN [place] fever Last administered on 03:57; Start 07/27/16 at 16:30; Stop 07/29/16 at 08:33; Status DC Sodium Chloride 1,000 ml @ 427.5 mls/ hr Q2H21M IV Last administered on 19:30; Start 07/27/16 at 19:30; Stop 07/27/16 at 23:30; Status DC Sodium Chloride 220 meq/Sodium Acetate 90 meq/ Potassium Chloride 30 meq/ Potassium Acetate 15 meq/Potassium Phosphate 10 mmol/ Magnesium Sulfate 45 meq/ Multivitamins/ Minerals 10 ml/ Chromium/Copper/ Manganese/Seleni/ Zn 1 ml/Total Parenteral Nutrition/Amino Acids/Dextrose/ Fat Emuls... 1,920 ml @ 80 mls/hr TPN CONT IV Last administered on 07/28/16 21:43; Start 07/28/16 at 22:00; Stop 07/29/16 at 21:59; Status DC Micafungin Sodium/ Dextrose (Mycamine) 100 ml @ 100 mls/hr Q24H IV Last administered on 07/31/16 00:57; Start 07/29/16 at 01:00 Lorazepam (Ativan) 0.05 mg PRN Q4HRS PRN IV ANXIETY / AGITATION; Start at 02:30; Stop 07/29/16 at 02:48; Status DC Lorazepam (Ativan) 0.5 mg PRN Q4HRS PRN IV ANXIETY / AGITATION Last administered on 07/29/16 03:18; Start 07/29/16 at 03:00 Acetaminophen (Tylenol) 650 mg PRN Q4HRS PRN [place] MILD PAIN / TEMP; Start at 08:30 Ketorolac Tromethamine (Toradol) 30 mg PRN Q6HRS PRN IV PAIN/FEVER Last administered on 07/30/16 00:50; Start 07/29/16 at 08:30; Stop 07/30/16 at 13:01 ; Status DC Pantoprazole Sodium 40 mg 40 mg DAILYAC IVP Last administered on 07/31/16 09: 20; Start 07/29/16 at 09:00 Sodium Chloride 1,000 ml @ 45 mls/hr [id number] IV Last administered on 09:17; Start 07/29/16 at 08:45 Sodium Chloride/ Sodium Acetate/ Potassium Chloride/ Potassium Acetate/ Potassium Phosphate/ Magnesium Sulfate/ Multivitamins/ Minerals/Chromium/ Copper /Manganese/ Seleni/Zn/Total Parenteral Nutrition/Amino Acids/Dextrose/ Fat Emulsion Intravenous (Sodium Chloride/ Potass... 1,920 ml @ 80 mls/hr TPN CONT IV Last administered on 07/29/16 22:06; Start 07/29/16 at 22:00; Stop at 21:59; Status DC Lidocaine/Sodium Bicarbonate 20 ml 20 ml STK-MED ONCE IJ ; Start 07/29/16 at 13: 13; Stop 07/29/16 at 13:14; Status DC Heparin Sodium/ Sodium Chloride 500 ml @ As Directed STK-MED ONCE .ROUTE ; Start 07/29/16 at 13:13; Stop 07/29/16 at 13:14; Status DC Lidocaine/ Epinephrine (Xylocaine 1%-Epi 1:100,000) 20 ml STK-MED ONCE .ROUTE ; Start 07/29/16 at 13:22; Stop 07/29/16 at 13:23; Status DC Midazolam HCl (Versed) 5 mg STK-MED ONCE .ROUTE ; Start 07/29/16 at 13:32; Stop 07/29/16 at 13:33; Status DC Fentanyl Citrate (Fentanyl 5ml Vial) 250 mcg STK-MED ONCE .ROUTE ; Start at 13:32; Stop 07/29/16 at 13:33; Status DC Heparin Sodium/ Sodium Chloride 1,000 unit 1X ONCE IART Last administered on 13:45; Start 07/29/16 at 13:45; Stop 07/29/16 at 13:48; Status DC Midazolam HCl (Versed) 5 mg 1X ONCE IV Last administered on 07/29/16 13:45; Start 07/29/16 at 13:45; Stop 07/29/16 at 13:48; Status DC Fentanyl Citrate (Fentanyl 5ml Vial) 250 mcg 1X ONCE IV Last administered on 13:45; Start 07/29/16 at 13:45; Stop 07/29/16 at 13:48; Status DC Lidocaine/ Epinephrine 20 ml 20 ml 1X ONCE IJ Last administered on 07/29/16 13:45; Start 07/29/16 at 13:45; Stop 07/29/16 at 13:48; Status DC Sodium Chloride 220 meq/Sodium Acetate 90 meq/ Potassium Chloride 15 meq/ Potassium Acetate 30 meq/Potassium Phosphate 10 mmol/ Magnesium Sulfate 45 meq/ Multivitamins/ Minerals 10 ml/ Chromium/Copper/ Manganese/Seleni/ Zn 1 ml/Total Parenteral Nutrition/Amino Acids/Dextrose/ Fat Emuls... 1,920 ml @ 80 mls/hr TPN CONT IV ; Start 07/30/16 at 22:00; Stop 07/31/16 at 21:59 Norepinephrine Bitartrate 8 mg/ Sodium Chloride 258 ml @ 1.93 mls/hr 1X ONCE IV Last administered on 07/30/16 11:17; Start 07/30/16 at 11:15; Stop at 15:43; Status DC Norepinephrine Bitartrate/Sodium Chloride (Levophed Vial/ Iv Sodium Chloride 0.9 % 250ml) 258 ml @ 0 mls/hr CONT PRN IV SEE I/O RECORD Last administered on 07/31 09:16; Start 07/30/16 at 11:15 Furosemide 60 mg 60 mg 1X ONCE IVP Last administered on 07/30/16 11:14; Start 07/30/16 at 11:15; Stop 07/30/16 at 11:16; Status DC Sodium Chloride 500 ml @ 500 mls/hr Q1H IV Last administered on 07/30/16 17: 04; Start 07/30/16 at 14:30; Stop 07/30/16 at 15:29; Status DC Albumin Human 100 ml @ 100 mls/hr Q8HRS IV Last administered on 07/31/16 05: 37; Start 07/30/16 at 14:30; Stop 07/31/16 at 06:59; Status DC Furosemide/Sodium Chloride (Lasix Drip/Iv Sodium Chloride 0.9% 100ml) 100 ml @ 0 mls/hr CONT PRN IV SEE I/O RECORD Last administered on 07/31/16 03:17; Start 07/30/16 at 14:30 Ondansetron HCl (Zofran) 8 mg PRN Q8HRS PRN IV NAUSEA/VOMITING Last administered on 07/30/16 14:38; Start 07/30/16 at 14:30 Sodium Bicarbonate 50 meq 50 meq 1X ONCE IV Last administered on 07/30/16 14: 43; Start 07/30/16 at 14:30; Stop 07/30/16 at 14:31; Status DC Heparin Sodium/ Sodium Chloride 500 ml @ As Directed STK-MED ONCE .ROUTE ; Start 07/30/16 at 14:49; Stop 07/30/16 at 14:50; Status DC Lidocaine HCl 20 ml STK-MED ONCE .ROUTE ; Start 07/30/16 at 14:49; Stop at 14:50; Status DC Midazolam HCl (Versed) 2 mg STK-MED ONCE .ROUTE ; Start 07/30/16 at 15:19; Stop 07/30/16 at 15:20; Status DC Heparin Sodium/ Sodium Chloride 1,000 unit 1X ONCE IART Last administered on 15:44; Start 07/30/16 at 15:45; Stop 07/30/16 at 15:46; Status DC Midazolam HCl (Versed) 1.5 mg 1X ONCE IV Last administered on 07/30/16 15:44 ; Start 07/30/16 at 15:45; Stop 07/30/16 at 15:46; Status DC Lidocaine HCl 20 ml 1X ONCE IJ Last administered on 07/30/16 15:44; Start at 15:45; Stop 07/30/16 at 15:46; Status DC Heparin Sodium (Porcine) 75193 unit 10,000 unit STK-MED ONCE .ROUTE ; Start at 15:54; Stop 07/30/16 at 15:55; Status DC Fentanyl Citrate 30 ml @ 0 mls/hr CONT PRN PRN IV PROTOCOL Last administered on 07/30/16 17:04; Start 07/30/16 at 16:45 Sodium Bicarbonate/ Dextrose 1,150 ml @ 125 mls/hr 1X ONCE IV Last administered on 07/30/16 18:34; Start 07/30/16 at 17:30; Stop 07/31/16 at 02:41 ; Status DC Succinylcholine Chloride 200 mg 200 mg STK-MED ONCE .ROUTE ; Start 07/30/16 at 19:47; Stop 07/30/16 at 19:48; Status DC Propofol 100 ml @ As Directed STK-MED ONCE IV ; Start 07/30/16 at 19:48; Stop 07/30/16 at 19:49; Status DC Midazolam HCl (Versed 100mg/ 100ml Premix) 100 ml @ 0 mls/hr CONT PRN IV SEE I/ O RECORD Last administered on 07/30/16 21:22; Start 07/30/16 at 21:15 Sodium Bicarbonate 50 meq 50 meq 1X ONCE IV Last administered on 07/30/16 22: 15; Start 07/30/16 at 22:30; Stop 07/30/16 at 22:31; Status DC Dopamine HCl/ Dextrose 250 ml @ 11.513 mls/ hr CONT PRN IV SEE I/O RECORD Last administered on 07/30/16 22:15; Start 07/30/16 at 22:15 Sodium Bicarbonate/ Dextrose 1,150 ml @ 125 mls/hr Q9H12M IV Last administered on 07/31/16 04:01; Start 07/31/16 at 03:00 Propofol (Diprivan) 1,000 mg STK-MED ONCE IV ; Start 07/30/16 at 20:00; Stop at 08:16; Status DC Succinylcholine Chloride 200 mg 200 mg STK-MED ONCE .ROUTE ; Start 07/30/16 at 20:00; Stop 07/31/16 at 08:16; Status DC Tigecycline 50 mg/ Sodium Chloride 50 ml @ 100 mls/hr Q12HR IV ; Start at 21:00 Tigecycline/ Sodium Chloride (Tygacil/Iv Sodium Chloride 0.9% 100ml) 100 ml @ 200 mls/hr 1X ONCE IV Last administered on 07/31/16 09:22; Start 07/31/16 at 09:00; Stop 07/31/16 at 09:29; Status DC Active Scripts Active Dilaudid (Hydromorphone Hcl) 4 Mg Tablet 4 Mg PO Q6HRS Phenazopyridine Hcl 200 Mg Tablet 200 Mg PO PRN TID PRN FENTANYL 50mcg/hr (Fentanyl) 1 Each Patch.td72 1 Patch TD Q3DAYS Anaspaz (Hyoscyamine Sulfate) 0.125 Mg Tab.rapdis 0.125 Mg PO Q6HRS PRN Cefpodoxime Proxetil 200 Mg Tablet 200 Mg PO BID Sertraline Hcl 50 Mg Tablet 100 Mg PO DAILY 30 Days Protonix (Pantoprazole Sodium) 40 Mg Tablet.dr 1 Tab PO DAILY Zinc Oxide 56.7 Gm Oint...g. 1 Sang TP BID Lidocaine 35.44 Gm Oint...g. 1 Sang TP BID Ondansetron Odt (Ondansetron) 4 Mg Tab.rapdis 8 Mg PO PRN Q8HRS PRN Gas-X (Simethicone) 80 Mg Tab.chew 80 Mg PO PRN QID PRN Reported Lorazepam 0.5 Mg Tablet 0.5 Mg PO PRN BID PRN Vitals/I & O Vital Sign - Last 24 Hours 07/30/16 07/30/1607/30/07/30/16 11:00 11:30 12:00 12:00 Temp 97.9 97.9 Pulse 102 104 100 Resp 26 32 B/P 73/50 83/55 97/52 Pulse Ox 92 92 O2 Delivery Nasal Cannula Nasal Cannula Nasal Cannula O2 Flow Rate 2.0 2.0 4.0 07/30/1607/30/17 07/30/17 07/30/ 12:30 13:00 13:30 14:00 Pulse 102 102 58 104 Resp 25 35 B/P 87/64 91/54 93/58 103/60 Pulse Ox 93 95 O2 Delivery Nasal Cannula Nasal Cannula O2 Flow Rate 4.0 4.0 07/30/1607/30/17 2/17 07/30/17 14:30 15:40 15:42 16:00 Pulse 106 116 116 Resp 39 B/P 93/60 Pulse Ox 93 O2 Delivery Nasal Cannula Nasal Cannula O2 Flow Rate 5.0 4.0 07/30/1607/30/17 16/17 07/30/17 16:15 16:30 16:45 16:45 Temp 97.1 97.1 Pulse 114 120 114 114 Resp 40 44 32 B/P 83/47 101/56 126/46 126/46 Pulse Ox 91 85 88 O2 Delivery Nasal Cannula Nasal Cannula Nasal Cannula O2 Flow Rate 3.0 4.0 4.0 07/30/1607/30/17 07/30/17 16/17 17:00 17:00 17:00 17:04 Temp 96.3 96.3 Pulse 114 114 Resp 30 B/P 110/42 110/42 Pulse Ox 89 O2 Delivery Nasal Cannula Nasal Cannula O2 Flow Rate 4.0 4.0 07/30/07/30/17 07/30/17 16/17 17:15 17:15 17:15 17:30 Temp 96.3 96.3 Pulse 114 114 110 Resp 34 B/P 118/44 118/44 104/40 Pulse Ox 90 O2 Delivery Venturi Mask 17 16/17 2/16/17 2/17 17:30 17:30 17:34 17:35 Temp 96.4 96.4 Pulse 110 Resp 32 B/P 104/40 Pulse Ox 91 93 O2 Delivery Venturi Mask Nasal Cannula Venturi Mask O2 Flow Rate 4.0 15.0 07/30/17 216/17 2/16/17 2/17 17:45 17:45 17:45 18:00 Temp 96.6 96.6 Pulse 114 114 112 Resp 32 32 B/P 118/44 118/44 108/40 Pulse Ox 92 94 O2 Delivery Venturi Mask Venturi Mask 07/30/1607/30/17 2//17 07/30/17 18:00 18:00 18:15 18:15 Temp 96.6 96.8 96.6 96.8 Pulse 112 114 B/P 108/40 112/42 07/30/17 216/17 2/16/17 17 18:30 18:30 18:45 18:45 Temp 97.2 97.5 97.2 97.5 Pulse 114 118 118 Resp 28 B/P 118/44 118/44 134/48 Pulse Ox 95 O2 Delivery Venturi Mask 07/30/1607/30/17 2/17 07/30/16 19:00 19:00 19:55 20:00 Temp 97.5 97.5 Pulse 120 Resp 45 51 B/P 134/48 Pulse Ox 95 100 O2 Delivery Venturi Mask Venturi Mask Ventilator Mechanical Ventilator O2 Flow Rate 15.0 17 16/17 2/16/17 2//17 20:00 20:00 20:30 20:45 Temp 98.1 98.1 Pulse 112 112 Resp 26 B/P 84/32 84/32 76/31 72/30 Pulse Ox 95 O2 Delivery Ventilator 07/30/1616/17 2/16/17 07/30/ 21:00 22:00 23:00 23:10 Temp 99.1 99.9 99.1 99.1 99.9 99.1 Pulse 110 114 126 Resp 26 30 30 B/P 94/40 100/46 114/44 145/54 Pulse Ox 95 95 95 O2 Delivery Ventilator Ventilator Ventilator 07/30/16 07/30/16 07/30/16 07/30/16 23:30 23:40 23:40 23:59 B/P 88/44 90/46 Pulse Ox 94 O2 Delivery Ventilator Mechanical Ventilator 07/31/16 07/31/16 07/31/16 07/31/16 00:00 00:00 00:15 01:00 Temp 99.3 99.1 99.3 99.1 Pulse 125 125 122 Resp 30 30 B/P 131/50 131/50 135/42 123/54 Pulse Ox 96 96 O2 Delivery Ventilator Ventilator 07/31/16 07/31/16 07/31/16 07/31/16 01:42 02:00 02:39 03:00 Temp 98.9 98.4 98.9 98.4 Pulse 119 122 Resp 30 30 B/P 130/56 96/47 91/46 Pulse Ox 94 95 96 O2 Delivery Ventilator Ventilator Ventilator 07/31/16 07/31/16 07/31/16 07/31/16 03:51 04:00 04:00 04:00 Temp 98.1 98.1 Pulse 110 110 Resp 30 B/P 116/51 116/51 Pulse Ox 93 93 O2 Delivery Ventilator Mechanical Ventilator Ventilator 07/31/16 07/31/16 07/31/16 07/31/16 05:00 05:30 06:00 07:21 Temp 98.2 98.4 98.2 98.4 Pulse 111 109 Resp 30 30 B/P 118/45 105/47 Pulse Ox 96 90 94 93 O2 Delivery Ventilator Ventilator Ventilator Ventilator Intake and Output 07/30/16 07/30/16 07/31/16 15:00 23:00 07:00 Intake Total 1496 ml Output Total 92 ml 129 ml 437 ml Balance -92 ml -129 ml 1059 ml MATT PALACIOS MD Jul 31, 2016 10:20
--- NOTE | 2016-07-31 10:40 | PDOC2 ---
CONSULT Date of Consult Date of Consult DATE: 07/31/16 TIME: 10:35 Reason for Consult Reason for Consult: JULIO C Referring Physician Referring Physician: BOLIVAR Identification/Chief Complaint Chief Complaint JULIO C Source Source: Chart review History of Present Illness Reason for Visit: THIS IS A 61 YR WITH A HX OF ENTEROCUTANEOUS FISTULA. 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 SHE HAS HAD SEVERAL EPISODES OF SEPSIS. CURRENTLY SEPTIC AGAIN IN THE ICU AND IN RESPIRATORY FAILURE. LABS SHOWED JULIO C WITH DECREASING UO AND LACTIC ACIDOSIS WITH ACIDEMIA. NO CKD HX Past Medical History Cardiovascular: CAD, HTN, Other ( left upper extremity deep venous thrombosis) GI: Diverticulosis (diverticulitis) Heme/Onc: Cancer ( cervical, status-post hysterectomy) Psych: Anxiety, Depression Musculoskeletal: Osteoarthritis Infectious disease: Other ( fistulas as described above) Renal/: No pertinent hx, UTI Endocrine: Hypothyroidism Past Surgical History Past Surgical History: Tonsillectomy, Hysterectomy, Other ( bowel resections, bilateral hip fracture repair, multiple attempts to repair fistulas) Family History Family History: Cancer, Diabetes, Hypertension Social History ALCOHOL: none Drugs: None Lives: Alone Current Problem List Problem List Problems Medical Problems: (1) Abdominal pain Status: Acute (2) Enterocutaneous fistula Status: Acute (3) Sepsis Status: Acute (4) Urinary tract infection Status: Acute (5) UTI (urinary tract infection) Status: Acute Current Medications Current Medications Current Medications Piperacillin Sod/ Tazobactam Sod/ Sodium Chloride (Zosyn/Iv Sodium Chloride 0.9 % 100ml) 100 ml @ 200 mls/hr 1X ONCE IV Last administered on 07/15/16 22:56; Start 07/15/16 at 22:00; Stop 07/15/16 at 22:29; Status DC Fentanyl Citrate 50 mcg 50 mcg PRN Q15MIN PRN IV PAIN GREATER THAN 3/10 Last administered on 07/16/16 00:30; Start 07/15/16 at 21:45; Stop 07/16/16 at 02:00; Status DC Sodium Chloride 1,000 ml @ 1,000 mls/hr 1X ONCE IV Last administered on 21:59; Start 07/15/16 at 22:00; Stop 07/15/16 at 22:59; Status DC Sodium Chloride (Iv Sodium Chloride 0.9% 500ml Bag) 500 ml @ 500 mls/hr 1X ONCE IV Last administered on 07/15/16 22:00; Start 07/15/16 at 22:00; Stop at 22:59; Status DC Ondansetron HCl (Zofran) 4 mg PRN Q8HRS PRN IV NAUSEA/VOMITING; Start 07/15/16 at 23:30; Stop 07/16/16 at 08:52; Status DC Fentanyl Citrate 50 mcg 50 mcg PRN Q2HR PRN IV SEVERE PAIN Last administered on 07/16/16 08:10; Start 07/15/16 at 23:30; Stop 07/16/16 at 08:52; Status DC Sodium Chloride (Iv Sodium Chloride 0.9% 1000ml Bag) 1,000 ml @ 150 mls/hr Q6H40M IV Last administered on 07/15/16 02:00; Start 07/15/16 at 23:45; Stop 07/16/16 at 08:52; Status DC Acetaminophen (Tylenol) 650 mg PRN Q4HRS PRN PO FEVER; Start 07/15/16 at 23:30; Stop 07/16/16 at 23:29; Status DC Info (Do NOT chart on this placeholder) 1 each PRN DAILY PRN MC NEEDS VERIFICATION; Start 07/16/16 at 03:00; Status Cancel Acetaminophen 650 mg 650 mg PRN Q4HRS PRN PO MILD PAIN / TEMP Last administered on 07/28/16 07:42; Start 07/16/16 at 08:45; Stop 07/29/16 at 08:33 ; Status DC Piperacillin Sod/ Tazobactam Sod 3.375 gm/Sodium Chloride 50 ml @ 100 mls/hr Q6HRS IV Last administered on 07/18/16 05:50; Start 07/16/16 at 10:00; Stop 07/18 at 13:28; Status DC Linezolid (Zyvox Premix) 300 ml @ 300 mls/hr Q12HR IV Last administered on 07/18 08:34; Start 07/16/16 at 10:00; Stop 07/18/16 at 13:28; Status DC Hydromorphone HCl (Dilaudid) 2 mg PRN Q4HRS PRN IV MODERATE PAIN Last administered on 07/28/16 23:33; Start 07/16/16 at 08:45 Hydromorphone HCl (Dilaudid) 4 mg PRN Q4HRS PRN IV SEVERE PAIN Last administered on 07/30/16 09:23; Start 07/16/16 at 08:45 Pantoprazole Sodium (Protonix) 40 mg DAILYAC PO Last administered on 07/27/16 11:11; Start 07/16/16 at 09:30; Stop 07/29/16 at 08:44; Status DC Hyoscyamine (Anaspaz) 0.125 mg Q6HRS PO Last administered on 07/20/16 05:20; Start 07/16/16 at 12:00; Stop 07/20/16 at 08:58; Status DC Phenazopyridine HCl (Pyridium) 200 mg TID PO Last administered on 07/20/16 08: 25; Start 07/16/16 at 09:30; Stop 07/20/16 at 08:58; Status DC Lorazepam (Ativan) 0.5 mg PRN BID PRN PO ANXIETY / AGITATION Last administered on 07/29/16 02:16; Start 07/16/16 at 08:45 Simethicone (Gas-X) 80 mg PRN Q4HRS PRN PO GAS / BLOATING Last administered on 07/24/16 22:30; Start 07/16/16 at 08:45 Zolpidem Tartrate 5 mg 5 mg PRN QHS PRN PO INSOMNIA Last administered on 23:14; Start 07/16/16 at 08:45 Potassium Chloride/Dextrose/ Sod Cl 1,000 ml @ 80 mls/hr [id number] IV Last administered on 07/16/16 10:54; Start 07/16/16 at 09:30; Stop 07/16/16 at 21:59; Status DC Fluconazole/ Sodium Chloride (Diflucan 200mg/ 100ml Premix) 100 ml @ 100 mls/ hr Q24H IV Last administered on 07/18/16 11:43; Start 07/16/16 at 11:00; Stop at 13:28; Status DC Info 1 each 1 each PRN DAILY PRN MC SEE COMMENTS Last administered on 09:27; Start 07/16/16 at 10:00 Sodium Chloride 220 meq/Sodium Acetate 90 meq/ Potassium Chloride 50 meq/ Potassium Acetate 15 meq/Potassium Phosphate 10 mmol/ Magnesium Sulfate 50 meq/ Calcium Gluconate 6 meq/ Multivitamins/ Minerals 10 ml/ Chromium/Copper/ Manganese/Seleni/ Zn 1 ml/Total Parenteral Nutrition/Amino Acids/Dextro... 1, 920 ml @ 80 mls/hr TPN CONT IV ; Start 07/16/16 at 22:00; Stop 07/16/16 at 22:00 ; Status DC Sodium Chloride/ Sodium Acetate/ Potassium Chloride/ Potassium Acetate/ Potassium Phosphate/ Magnesium Sulfate/ Calcium Gluconate/ Multivitamins/ Minerals/Chromium/ Copper/Manganese/ Seleni/Zn/Total Parenteral Nutrition/Amino Acids/Dextrose/ Fat Emulsion Intravenous (Sodium Chlori... 1,820 ml @ 75.833 mls/ hr TPN CONT IV Last administered on 07/16/16 21:03; Start 07/16/16 at 22: 00; Stop 07/17/16 at 21:59; Status DC Ondansetron HCl (Zofran) 4 mg PRN Q6HRS PRN IV NAUSEA/VOMITING Last administered on 07/21/16 08:48; Start 07/16/16 at 17:15 Diphenhydramine HCl (Benadryl) 25 mg PRN Q6HRS PRN PO ITCHING Last administered on 07/25/16 23:38; Start 07/16/16 at 17:45 Lidocaine (Xylocaine) 1 sang BID TP Last administered on 07/31/16 09:17; Start 07/17/16 at 09:00 Zinc Oxide 1 sang 1 sang BID TP Last administered on 07/31/16 09:17; Start at 09:30 Sodium Chloride/ Sodium Acetate/ Potassium Chloride/ Potassium Acetate/ Potassium Phosphate/ Magnesium Sulfate/ Calcium Gluconate/ Multivitamins/ Minerals/Chromium/ Copper/Manganese/ Seleni/Zn/Total Parenteral Nutrition/Amino Acids/Dextrose/ Fat Emulsion Intravenous (Sodium Chlori... 1,920 ml @ 80 mls/ hr TPN CONT IV Last administered on 07/17/16 22:13; Start 07/17/16 at 22:00; Stop 07/18/16 at 21:59; Status DC Furosemide 40 mg 40 mg 1X ONCE IVP Last administered on 07/18/16 11:43; Start 07/18/16 at 11:00; Stop 07/18/16 at 11:07; Status DC Sodium Chloride 220 meq/Sodium Acetate 90 meq/ Potassium Chloride 50 meq/ Potassium Acetate 15 meq/Potassium Phosphate 10 mmol/ Magnesium Sulfate 50 meq/ Calcium Gluconate 3 meq/ Multivitamins/ Minerals 10 ml/ Chromium/Copper/ Manganese/Seleni/ Zn 1 ml/Total Parenteral Nutrition/Amino Acids/Dextro... 1, 920 ml @ 80 mls/hr TPN CONT IV Last administered on 07/19/16 00:03; Start 07/18/16 at 22:00; Stop 07/19/16 at 21:59; Status DC Meropenem 1 gm/ Sodium Chloride 100 ml @ 200 mls/hr Q8HRS IV Last administered on 07/20/16 05:21; Start 07/18/16 at 14:00; Stop 07/20/16 at 11:25; Status DC Micafungin Sodium 100 mg/Dextrose 100 ml @ 100 mls/hr Q24H IV Last administered on 07/19/16 15:05; Start 07/18/16 at 14:00; Stop 07/20/16 at 11:25; Status DC Daptomycin/Sodium Chloride (Cubicin/Iv Sodium Chloride 0.9% 50ml) 50 ml @ 100 mls/hr Q24H IV Last administered on 07/19/16 16:56; Start 07/18/16 at 15:00; Stop 07/20/16 at 11:25; Status DC Alteplase, Recombinant (Cathflo) 2 mg 1X ONCE INT CAT Last administered on 07/19 06:24; Start 07/19/16 at 07:00; Stop 07/19/16 at 07:01; Status DC Gentamicin Sulfate 1 each 1 each PRN DAILY PRN MC SEE COMMENTS Last administered on 07/25/16 15:31; Start 07/19/16 at 12:15; Stop 07/25/16 at 16:14 ; Status DC Gentamicin Sulfate/Sodium Chloride (Iv Sodium Chloride 0.9% 100ml) 106.75 ml @ 106.75 mls/hr Q24H IV Last administered on 07/25/16 15:31; Start 07/19/16 at 13 :00; Stop 07/25/16 at 16:12; Status DC Gentamicin Sulfate 1 each 1 each 1X ONCE MC Last administered on 07/19/16 23: 00; Start 07/19/16 at 23:00; Stop 07/19/16 at 23:01; Status DC Sodium Chloride/ Sodium Acetate/ Potassium Chloride/ Potassium Acetate/ Potassium Phosphate/ Magnesium Sulfate/ Calcium Gluconate/ Multivitamins/ Minerals/Chromium/ Copper/Manganese/ Seleni/Zn/Total Parenteral Nutrition/Amino Acids/Dextrose/ Fat Emulsion Intravenous (Sodium Chlori... 1,920 ml @ 80 mls/ hr TPN CONT IV Last administered on 07/19/16 20:51; Start 07/19/16 at 22:00; Stop 07/20/16 at 21:59; Status DC Hyoscyamine (Anaspaz) 0.125 mg PRN Q6HRS PRN PO BLADDER SPASM; Start 07/20/16 at 09:00 Phenazopyridine HCl 200 mg 200 mg PRN TID PRN PO BLADDER SPASM Last administered on 07/21/16 20:14; Start 07/20/16 at 09:00 Linezolid 300 ml @ 300 mls/hr Q12HR IV Last administered on 07/25/16 09:02; Start 07/20/16 at 12:00; Stop 07/25/16 at 16:12; Status DC Sodium Chloride 220 meq/Sodium Acetate 90 meq/ Potassium Chloride 50 meq/ Potassium Acetate 15 meq/Potassium Phosphate 10 mmol/ Magnesium Sulfate 50 meq/ Calcium Gluconate 3 meq/ Multivitamins/ Minerals 10 ml/ Chromium/Copper/ Manganese/Seleni/ Zn 1 ml/Total Parenteral Nutrition/Amino Acids/Dextro... 1, 920 ml @ 80 mls/hr TPN CONT IV Last administered on 07/20/16 21:30; Start 07/20/16 at 22:00; Stop 07/21/16 at 21:59; Status DC Sodium Chloride/ Sodium Acetate/ Potassium Chloride/ Potassium Acetate/ Potassium Phosphate/ Magnesium Sulfate/ Multivitamins/ Minerals/Chromium/ Copper /Manganese/ Seleni/Zn/Total Parenteral Nutrition/Amino Acids/Dextrose/ Fat Emulsion Intravenous (Sodium Chloride/ Potass... 1,920 ml @ 80 mls/hr TPN CONT IV Last administered on 07/21/16 22:05; Start 07/21/16 at 22:00; Stop at 21:59; Status DC Alteplase, Recombinant 2 mg 2 mg PRN DAILY PRN INT CAT INFLAMMATION Last administered on 07/27/16 11:31; Start 07/21/16 at 15:00 Sodium Chloride 220 meq/Sodium Acetate 90 meq/ Potassium Chloride 50 meq/ Potassium Acetate 15 meq/Potassium Phosphate 10 mmol/ Magnesium Sulfate 50 meq/ Multivitamins/ Minerals 10 ml/ Chromium/Copper/ Manganese/Seleni/ Zn 1 ml/Total Parenteral Nutrition/Amino Acids/Dextrose/ Fat Emuls... 1,920 ml @ 80 mls/hr TPN CONT IV Last administered on 07/22/16 20:53; Start 07/22/16 at 22:00; Stop 07/23/16 at 21:59; Status DC Sodium Chloride/ Sodium Acetate/ Potassium Chloride/ Potassium Acetate/ Potassium Phosphate/ Magnesium Sulfate/ Multivitamins/ Minerals/Chromium/ Copper /Manganese/ Seleni/Zn/Total Parenteral Nutrition/Amino Acids/Dextrose/ Fat Emulsion Intravenous (Sodium Chloride/ Potass... 1,920 ml @ 80 mls/hr TPN CONT IV Last administered on 07/23/16 21:16; Start 07/23/16 at 22:00; Stop 07/24 at 21:59; Status DC Gentamicin Sulfate 1 each 1 each 1X ONCE MC ; Start 07/23/16 at 22:00; Stop 07/23 at 22:01; Status Cancel Sodium Chloride/ Sodium Acetate/ Potassium Chloride/ Potassium Acetate/ Potassium Phosphate/ Magnesium Sulfate/ Multivitamins/ Minerals/Chromium/ Copper /Manganese/ Seleni/Zn/Total Parenteral Nutrition/Amino Acids/Dextrose/ Fat Emulsion Intravenous (Sodium Chloride/ Potass... 1,920 ml @ 80 mls/hr TPN CONT IV Last administered on 07/24/16 21:15; Start 07/24/16 at 22:00; Stop 04/30 at 21:59; Status DC Gentamicin Sulfate 1 each 1X ONCE MC ; Start 07/25/16 at 12:30; Stop 07/25/16 at 12:31; Status Cancel Amlodipine Besylate 5 mg 5 mg DAILY PO Last administered on 07/27/16 11:12; Start 07/25/16 at 12:00; Stop 07/29/16 at 08:44; Status DC Sodium Chloride 220 meq/Sodium Acetate 90 meq/ Potassium Chloride 30 meq/ Potassium Acetate 15 meq/Potassium Phosphate 10 mmol/ Magnesium Sulfate 50 meq/ Multivitamins/ Minerals 10 ml/ Chromium/Copper/ Manganese/Seleni/ Zn 1 ml/Total Parenteral Nutrition/Amino Acids/Dextrose/ Fat Emuls... 1,920 ml @ 80 mls/hr TPN CONT IV Last administered on 07/25/16 22:25; Start 07/25/16 at 22:00; Stop 07/26/16 at 21:59; Status DC Sodium Chloride/ Sodium Acetate/ Potassium Chloride/ Potassium Acetate/ Potassium Phosphate/ Magnesium Sulfate/ Multivitamins/ Minerals/Chromium/ Copper /Manganese/ Seleni/Zn/Total Parenteral Nutrition/Amino Acids/Dextrose/ Fat Emulsion Intravenous (Sodium Chloride/ Potass... 1,920 ml @ 80 mls/hr TPN CONT IV Last administered on 07/26/16 23:16; Start 07/26/16 at 22:00; Stop at 21:59; Status DC Furosemide 20 mg 20 mg 1X ONCE IVP Last administered on 07/27/16 11:31; Start 07/27/16 at 09:00; Stop 07/27/16 at 09:01; Status DC Daptomycin 340 mg/ Sodium Chloride 50 ml @ 100 mls/hr Q24H IV Last administered on 07/29/16 15:05; Start 07/27/16 at 13:00; Stop 07/30/16 at 07:25 ; Status DC Piperacillin Sod/ Tazobactam Sod 3.375 gm/Sodium Chloride 50 ml @ 100 mls/hr Q6HRS IV Last administered on 07/30/16 05:30; Start 07/27/16 at 12:30; Stop at 07:25; Status DC Fluconazole/ Sodium Chloride 100 ml @ 100 mls/hr Q24H IV Last administered on 07/28/16 13:32; Start 07/27/16 at 13:00; Stop 07/29/16 at 00:53; Status DC Sodium Chloride 1,000 ml @ 1,000 mls/hr 1X ONCE IV Last administered on 12:34; Start 07/27/16 at 12:30; Stop 07/27/16 at 13:29; Status DC Sodium Chloride 220 meq/Sodium Acetate 90 meq/ Potassium Chloride 30 meq/ Potassium Acetate 15 meq/Potassium Phosphate 10 mmol/ Magnesium Sulfate 45 meq/ Multivitamins/ Minerals 10 ml/ Chromium/Copper/ Manganese/Seleni/ Zn 1 ml/Total Parenteral Nutrition/Amino Acids/Dextrose/ Fat Emuls... 1,920 ml @ 80 mls/hr TPN CONT IV Last administered on 07/27/16 22:38; Start 07/27/16 at 22:00; Stop 07/28/16 at 21:59; Status DC Sodium Chloride (Iv Sodium Chloride 0.9% 1000ml Bag) 1,000 ml @ 45 mls/hr [id number] IV Last administered on 07/28/16 03:24; Start 07/27/16 at 17:00; Stop 07/28/16 at 10:27; Status DC Acetaminophen 650 mg 650 mg PRN Q6HRS PRN [place] fever Last administered on 03:57; Start 07/27/16 at 16:30; Stop 07/29/16 at 08:33; Status DC Sodium Chloride 1,000 ml @ 427.5 mls/ hr Q2H21M IV Last administered on 19:30; Start 07/27/16 at 19:30; Stop 07/27/16 at 23:30; Status DC Sodium Chloride 220 meq/Sodium Acetate 90 meq/ Potassium Chloride 30 meq/ Potassium Acetate 15 meq/Potassium Phosphate 10 mmol/ Magnesium Sulfate 45 meq/ Multivitamins/ Minerals 10 ml/ Chromium/Copper/ Manganese/Seleni/ Zn 1 ml/Total Parenteral Nutrition/Amino Acids/Dextrose/ Fat Emuls... 1,920 ml @ 80 mls/hr TPN CONT IV Last administered on 07/28/16 21:43; Start 07/28/16 at 22:00; Stop 07/29/16 at 21:59; Status DC Micafungin Sodium/ Dextrose (Mycamine) 100 ml @ 100 mls/hr Q24H IV Last administered on 07/31/16 00:57; Start 07/29/16 at 01:00 Lorazepam (Ativan) 0.05 mg PRN Q4HRS PRN IV ANXIETY / AGITATION; Start at 02:30; Stop 07/29/16 at 02:48; Status DC Lorazepam (Ativan) 0.5 mg PRN Q4HRS PRN IV ANXIETY / AGITATION Last administered on 07/29/16 03:18; Start 07/29/16 at 03:00 Acetaminophen (Tylenol) 650 mg PRN Q4HRS PRN [place] MILD PAIN / TEMP; Start at 08:30 Ketorolac Tromethamine (Toradol) 30 mg PRN Q6HRS PRN IV PAIN/FEVER Last administered on 07/30/16 00:50; Start 07/29/16 at 08:30; Stop 07/30/16 at 13:01 ; Status DC Pantoprazole Sodium 40 mg 40 mg DAILYAC IVP Last administered on 07/31/16 09: 20; Start 07/29/16 at 09:00 Sodium Chloride 1,000 ml @ 45 mls/hr [id number] IV Last administered on 09:17; Start 07/29/16 at 08:45 Sodium Chloride/ Sodium Acetate/ Potassium Chloride/ Potassium Acetate/ Potassium Phosphate/ Magnesium Sulfate/ Multivitamins/ Minerals/Chromium/ Copper /Manganese/ Seleni/Zn/Total Parenteral Nutrition/Amino Acids/Dextrose/ Fat Emulsion Intravenous (Sodium Chloride/ Potass... 1,920 ml @ 80 mls/hr TPN CONT IV Last administered on 07/29/16 22:06; Start 07/29/16 at 22:00; Stop at 21:59; Status DC Lidocaine/Sodium Bicarbonate 20 ml 20 ml STK-MED ONCE IJ ; Start 07/29/16 at 13: 13; Stop 07/29/16 at 13:14; Status DC Heparin Sodium/ Sodium Chloride 500 ml @ As Directed STK-MED ONCE .ROUTE ; Start 07/29/16 at 13:13; Stop 07/29/16 at 13:14; Status DC Lidocaine/ Epinephrine (Xylocaine 1%-Epi 1:100,000) 20 ml STK-MED ONCE .ROUTE ; Start 07/29/16 at 13:22; Stop 07/29/16 at 13:23; Status DC Midazolam HCl (Versed) 5 mg STK-MED ONCE .ROUTE ; Start 07/29/16 at 13:32; Stop 07/29/16 at 13:33; Status DC Fentanyl Citrate (Fentanyl 5ml Vial) 250 mcg STK-MED ONCE .ROUTE ; Start at 13:32; Stop 07/29/16 at 13:33; Status DC Heparin Sodium/ Sodium Chloride 1,000 unit 1X ONCE IART Last administered on 13:45; Start 07/29/16 at 13:45; Stop 07/29/16 at 13:48; Status DC Midazolam HCl (Versed) 5 mg 1X ONCE IV Last administered on 07/29/16 13:45; Start 07/29/16 at 13:45; Stop 07/29/16 at 13:48; Status DC Fentanyl Citrate (Fentanyl 5ml Vial) 250 mcg 1X ONCE IV Last administered on 13:45; Start 07/29/16 at 13:45; Stop 07/29/16 at 13:48; Status DC Lidocaine/ Epinephrine 20 ml 20 ml 1X ONCE IJ Last administered on 07/29/16 13:45; Start 07/29/16 at 13:45; Stop 07/29/16 at 13:48; Status DC Sodium Chloride 220 meq/Sodium Acetate 90 meq/ Potassium Chloride 15 meq/ Potassium Acetate 30 meq/Potassium Phosphate 10 mmol/ Magnesium Sulfate 45 meq/ Multivitamins/ Minerals 10 ml/ Chromium/Copper/ Manganese/Seleni/ Zn 1 ml/Total Parenteral Nutrition/Amino Acids/Dextrose/ Fat Emuls... 1,920 ml @ 80 mls/hr TPN CONT IV ; Start 07/30/16 at 22:00; Stop 07/31/16 at 21:59 Norepinephrine Bitartrate 8 mg/ Sodium Chloride 258 ml @ 1.93 mls/hr 1X ONCE IV Last administered on 07/30/16 11:17; Start 07/30/16 at 11:15; Stop at 15:43; Status DC Norepinephrine Bitartrate/Sodium Chloride (Levophed Vial/ Iv Sodium Chloride 0.9 % 250ml) 258 ml @ 0 mls/hr CONT PRN IV SEE I/O RECORD Last administered on 07/31 09:16; Start 07/30/16 at 11:15 Furosemide 60 mg 60 mg 1X ONCE IVP Last administered on 07/30/16 11:14; Start 07/30/16 at 11:15; Stop 07/30/16 at 11:16; Status DC Sodium Chloride 500 ml @ 500 mls/hr Q1H IV Last administered on 07/30/16 17: 04; Start 07/30/16 at 14:30; Stop 07/30/16 at 15:29; Status DC Albumin Human 100 ml @ 100 mls/hr Q8HRS IV Last administered on 07/31/16 05: 37; Start 07/30/16 at 14:30; Stop 07/31/16 at 06:59; Status DC Furosemide/Sodium Chloride (Lasix Drip/Iv Sodium Chloride 0.9% 100ml) 100 ml @ 0 mls/hr CONT PRN IV SEE I/O RECORD Last administered on 07/31/16 03:17; Start 07/30/16 at 14:30 Ondansetron HCl (Zofran) 8 mg PRN Q8HRS PRN IV NAUSEA/VOMITING Last administered on 07/30/16 14:38; Start 07/30/16 at 14:30 Sodium Bicarbonate 50 meq 50 meq 1X ONCE IV Last administered on 07/30/16 14: 43; Start 07/30/16 at 14:30; Stop 07/30/16 at 14:31; Status DC Heparin Sodium/ Sodium Chloride 500 ml @ As Directed STK-MED ONCE .ROUTE ; Start 07/30/16 at 14:49; Stop 07/30/16 at 14:50; Status DC Lidocaine HCl 20 ml STK-MED ONCE .ROUTE ; Start 07/30/16 at 14:49; Stop at 14:50; Status DC Midazolam HCl (Versed) 2 mg STK-MED ONCE .ROUTE ; Start 07/30/16 at 15:19; Stop 07/30/16 at 15:20; Status DC Heparin Sodium/ Sodium Chloride 1,000 unit 1X ONCE IART Last administered on 15:44; Start 07/30/16 at 15:45; Stop 07/30/16 at 15:46; Status DC Midazolam HCl (Versed) 1.5 mg 1X ONCE IV Last administered on 07/30/16 15:44 ; Start 07/30/16 at 15:45; Stop 07/30/16 at 15:46; Status DC Lidocaine HCl 20 ml 1X ONCE IJ Last administered on 07/30/16 15:44; Start at 15:45; Stop 07/30/16 at 15:46; Status DC Heparin Sodium (Porcine) [id number] unit 10,000 unit STK-MED ONCE .ROUTE ; Start at 15:54; Stop 07/30/16 at 15:55; Status DC Fentanyl Citrate 30 ml @ 0 mls/hr CONT PRN PRN IV PROTOCOL Last administered on 07/30/16 17:04; Start 07/30/16 at 16:45 Sodium Bicarbonate/ Dextrose 1,150 ml @ 125 mls/hr 1X ONCE IV Last administered on 07/30/16 18:34; Start 07/30/16 at 17:30; Stop 07/31/16 at 02:41 ; Status DC Succinylcholine Chloride 200 mg 200 mg STK-MED ONCE .ROUTE ; Start 07/30/16 at 19:47; Stop 07/30/16 at 19:48; Status DC Propofol 100 ml @ As Directed STK-MED ONCE IV ; Start 07/30/16 at 19:48; Stop 07/30/16 at 19:49; Status DC Midazolam HCl (Versed 100mg/ 100ml Premix) 100 ml @ 0 mls/hr CONT PRN IV SEE I/ O RECORD Last administered on 07/30/16 21:22; Start 07/30/16 at 21:15 Sodium Bicarbonate 50 meq 50 meq 1X ONCE IV Last administered on 07/30/16 22: 15; Start 07/30/16 at 22:30; Stop 07/30/16 at 22:31; Status DC Dopamine HCl/ Dextrose 250 ml @ 11.513 mls/ hr CONT PRN IV SEE I/O RECORD Last administered on 07/30/16 22:15; Start 07/30/16 at 22:15 Sodium Bicarbonate/ Dextrose 1,150 ml @ 125 mls/hr Q9H12M IV Last administered on 07/31/16 04:01; Start 07/31/16 at 03:00 Propofol (Diprivan) 1,000 mg STK-MED ONCE IV ; Start 07/30/16 at 20:00; Stop at 08:16; Status DC Succinylcholine Chloride 200 mg 200 mg STK-MED ONCE .ROUTE ; Start 07/30/16 at 20:00; Stop 07/31/16 at 08:16; Status DC Tigecycline 50 mg/ Sodium Chloride 50 ml @ 100 mls/hr Q12HR IV ; Start at 21:00 Tigecycline/ Sodium Chloride (Tygacil/Iv Sodium Chloride 0.9% 100ml) 100 ml @ 200 mls/hr 1X ONCE IV Last administered on 07/31/16t 09:22; Start 07/31/16 at 09:00; Stop 07/31/16 at 09:29; Status DC Active Scripts Active Dilaudid (Hydromorphone Hcl) 4 Mg Tablet 4 Mg PO Q6HRS Phenazopyridine Hcl 200 Mg Tablet 200 Mg PO PRN TID PRN FENTANYL 50mcg/hr (Fentanyl) 1 Each Patch.td72 1 Patch TD Q3DAYS Anaspaz (Hyoscyamine Sulfate) 0.125 Mg Tab.rapdis 0.125 Mg PO Q6HRS PRN Cefpodoxime Proxetil 200 Mg Tablet 200 Mg PO BID Sertraline Hcl 50 Mg Tablet 100 Mg PO DAILY 30 Days Protonix (Pantoprazole Sodium) 40 Mg Tablet.dr 1 Tab PO DAILY Zinc Oxide 56.7 Gm Oint...g. 1 Sang TP BID Lidocaine 35.44 Gm Oint...g. 1 Sang TP BID Ondansetron Odt (Ondansetron) 4 Mg Tab.rapdis 8 Mg PO PRN Q8HRS PRN Gas-X (Simethicone) 80 Mg Tab.chew 80 Mg PO PRN QID PRN Reported Lorazepam 0.5 Mg Tablet 0.5 Mg PO PRN BID PRN Allergies Allergies: Coded Allergies: Iodinated Contrast Media - Oral and (Verified Allergy, Severe, Anaphylaxis , 12/05/15) PT HAS BEEN PREMEDICATED BEFORE WITH NO PROBLEMS, 11-27-14. vancomycin (Verified Allergy, Severe, Swelling, 12/05/15) adhesive tape (Verified Allergy, Intermediate, Rash, 12/05/15) silver (Verified Allergy, Intermediate, Rash, Tegaderm film, can have on abd but no where else, 12/05/15) codeine (Verified Adverse Reaction, Severe, Nausea and Vomiting, 12/11/15) ROS Review of System UNABLE TO OBTAIN Physical Exam General: No acute distress HEENT: Atraumatic Lungs: Normal air movement, Other (ET TUBE IN PLACE) Heart: Other (TACHY) Abdomen: Other (HYPOACTIVE) Extremities: No edema Skin: No significant lesion Neuro: Other (SEDATED) Psych/Mental Status: Other (SEDATED) MUSCULOSKELETAL: No deformity Vitals VITALS Vital Signs Date Time Temp Pulse Resp B/P Pulse Ox O2 Delivery O2 Flow Rate FiO2 07/31/16 07:21 93 Ventilator 07/31/16 06:00 98.4 109 30 105/47 98.4 07/30/16 19:00 15.0 Labs Labs Laboratory Tests Test 07/30/16 06:55 07/30/16 06:58 07/30/16 11:02 07/30/16 13:25 Sodium Level 142mmol/L (136-145) Potassium Level 3.8mmol/L (3.5-5.1) Chloride Level 111mmol/L (98-107) Carbon Dioxide Level 16mmol/L (21-32) Anion Gap 15 (6-14) Blood Urea Nitrogen 32mg/dL (7-20) Creatinine 1.7mg/dL (0.6-1.0) Estimated GFR (Cockcroft-Gault) 37.0 Glucose Level 116mg/dL (70-99) Calcium Level 8.1mg/dL (8.5-10.1) Phosphorus Level 3.9mg/dL (2.6-4.7) White Blood Count 4.0x10^3/uL (4.0-11.0) Red Blood Count 3.49x10^6/uL (3.50-5.40) Hemoglobin 9.3g/dL (12.0-15.5) Hematocrit 28.8% (36.0-47.0) Mean Corpuscular Volume 83fL (79-100) Mean Corpuscular Hemoglobin 27pg (25-35) Mean Corpuscular Hemoglobin Concent 32g/dL (31-37) Red Cell Distribution Width 20.3% (11.5-14.5) Platelet Count 107x10^3/uL (140-400) Neutrophils (%) (Auto) 93% (31-73) Lymphocytes (%) (Auto) 3% (24-48) Monocytes (%) (Auto) 2% (0-9) Eosinophils (%) (Auto) 0% (0-3) Basophils (%) (Auto) 1% (0-3) Neutrophils # (Auto) 3.7x10^3uL (1.8-7.7) Lymphocytes # (Auto) 0.1x10^3/uL (1.0-4.8) Monocytes # (Auto) 0.1x10^3/uL (0.0-1.1) Eosinophils # (Auto) 0.0x10^3/uL (0.0-0.7) Basophils # (Auto) 0.0x10^3/uL (0.0-0.2) O2 Saturation 88% (92-99) Arterial Blood pH 7.23 (7.35-7.45) Arterial Blood pCO2 at Patient Temp 37mmHg (35-46) Arterial Blood pO2 at Patient Temp 65mmHg (65-108) Arterial Blood HCO3 15mmol/L (21-28) Arterial Blood Base Excess -12mmol/L (-3-3) FiO2 28 Lactic Acid Level 3.3mmol/L (0.4-2.0) Test 07/30/16 16:38 07/30/16 19:40 07/31/16 05:10 07/31/16 07:15 Sodium Level 144mmol/L (136-145) 146mmol/L (136-145) Potassium Level 4.0mmol/L (3.5-5.1) 3.7mmol/L (3.5-5.1) Chloride Level 111mmol/L (98-107) 109mmol/L (98-107) Carbon Dioxide Level 17mmol/L (21-32) 20mmol/L (21-32) Anion Gap 16 (6-14) 17 (6-14) Blood Urea Nitrogen 41mg/dL (7-20) 45mg/dL (7-20) Creatinine 2.0mg/dL (0.6-1.0) 2.6mg/dL (0.6-1.0) Estimated GFR (Cockcroft-Gault) 30.6 22.6 Glucose Level 61mg/dL (70-99) 79mg/dL (70-99) Calcium Level 8.0mg/dL (8.5-10.1) 8.0mg/dL (8.5-10.1) Phosphorus Level 4.1mg/dL (2.6-4.7) Albumin 2.1g/dL (3.4-5.0) O2 Saturation 99% (92-99) Arterial Blood pH 7.32 (7.35-7.45) Arterial Blood pCO2 at Patient Temp 30mmHg (35-46) Arterial Blood pO2 at Patient Temp 307mmHg (65-108) Arterial Blood HCO3 15mmol/L (21-28) Arterial Blood Base Excess -10mmol/L (-3-3) FiO2 100 White Blood Count 4.6x10^3/uL (4.0-11.0) Red Blood Count 3.36x10^6/uL (3.50-5.40) Hemoglobin 8.6g/dL (12.0-15.5) Hematocrit 26.9% (36.0-47.0) Mean Corpuscular Volume 80fL (79-100) Mean Corpuscular Hemoglobin 26pg (25-35) Mean Corpuscular Hemoglobin Concent 32g/dL (31-37) Red Cell Distribution Width 20.2% (11.5-14.5) Platelet Count 78x10^3/uL (140-400) Neutrophils (%) (Auto) 80% (31-73) Lymphocytes (%) (Auto) 13% (24-48) Monocytes (%) (Auto) 6% (0-9) Eosinophils (%) (Auto) 1% (0-3) Basophils (%) (Auto) 1% (0-3) Neutrophils # (Auto) 3.6x10^3uL (1.8-7.7) Lymphocytes # (Auto) 0.6x10^3/uL (1.0-4.8) Monocytes # (Auto) 0.3x10^3/uL (0.0-1.1) Eosinophils # (Auto) 0.0x10^3/uL (0.0-0.7) Basophils # (Auto) 0.0x10^3/uL (0.0-0.2) Magnesium Level 3.1mg/dL (1.8-2.4) Lactic Acid Level 4.7mmol/L (0.4-2.0) Test 07/31/16 08:00 O2 Saturation 88% (92-99) Arterial Blood pH 7.41 (7.35-7.45) Arterial Blood pCO2 at Patient Temp 30mmHg (35-46) Arterial Blood pO2 at Patient Temp 59mmHg (65-108) Arterial Blood HCO3 19mmol/L (21-28) Arterial Blood Base Excess -5mmol/L (-3-3) FiO2 60 Laboratory Tests Test 07/30/16 11:02 07/30/16 13:25 07/30/16 16:38 07/30/16 19:40 O2 Saturation 88% (92-99) 99% (92-99) Arterial Blood pH 7.23 (7.35-7.45) 7.32 (7.35-7.45) Arterial Blood pCO2 at Patient Temp 37mmHg (35-46) 30mmHg (35-46) Arterial Blood pO2 at Patient Temp 65mmHg (65-108) 307mmHg (65-108) Arterial Blood HCO3 15mmol/L (21-28) 15mmol/L (21-28) Arterial Blood Base Excess -12mmol/L (-3-3) -10mmol/L (-3-3) FiO2 28 100 Lactic Acid Level 3.3mmol/L (0.4-2.0) Sodium Level 144mmol/L (136-145) Potassium Level 4.0mmol/L (3.5-5.1) Chloride Level 111mmol/L (98-107) Carbon Dioxide Level 17mmol/L (21-32) Anion Gap 16 (6-14) Blood Urea Nitrogen 41mg/dL (7-20) Creatinine 2.0mg/dL (0.6-1.0) Estimated GFR (Cockcroft-Gault) 30.6 Glucose Level 61mg/dL (70-99) Calcium Level 8.0mg/dL (8.5-10.1) Phosphorus Level 4.1mg/dL (2.6-4.7) Albumin 2.1g/dL (3.4-5.0) Test 07/31/16 05:10 07/31/16 07:15 07/31/16 08:00 White Blood Count 4.6x10^3/uL (4.0-11.0) Red Blood Count 3.36x10^6/uL (3.50-5.40) Hemoglobin 8.6g/dL (12.0-15.5) Hematocrit 26.9% (36.0-47.0) Mean Corpuscular Volume 80fL (79-100) Mean Corpuscular Hemoglobin 26pg (25-35) Mean Corpuscular Hemoglobin Concent 32g/dL (31-37) Red Cell Distribution Width 20.2% (11.5-14.5) Platelet Count 78x10^3/uL (140-400) Neutrophils (%) (Auto) 80% (31-73) Lymphocytes (%) (Auto) 13% (24-48) Monocytes (%) (Auto) 6% (0-9) Eosinophils (%) (Auto) 1% (0-3) Basophils (%) (Auto) 1% (0-3) Neutrophils # (Auto) 3.6x10^3uL (1.8-7.7) Lymphocytes # (Auto) 0.6x10^3/uL (1.0-4.8) Monocytes # (Auto) 0.3x10^3/uL (0.0-1.1) Eosinophils # (Auto) 0.0x10^3/uL (0.0-0.7) Basophils # (Auto) 0.0x10^3/uL (0.0-0.2) Sodium Level 146mmol/L (136-145) Potassium Level 3.7mmol/L (3.5-5.1) Chloride Level 109mmol/L (98-107) Carbon Dioxide Level 20mmol/L (21-32) Anion Gap 17 (6-14) Blood Urea Nitrogen 45mg/dL (7-20) Creatinine 2.6mg/dL (0.6-1.0) Estimated GFR (Cockcroft-Gault) 22.6 Glucose Level 79mg/dL (70-99) Calcium Level 8.0mg/dL (8.5-10.1) Magnesium Level 3.1mg/dL (1.8-2.4) Lactic Acid Level 4.7mmol/L (0.4-2.0) O2 Saturation 88% (92-99) Arterial Blood pH 7.41 (7.35-7.45) Arterial Blood pCO2 at Patient Temp 30mmHg (35-46) Arterial Blood pO2 at Patient Temp 59mmHg (65-108) Arterial Blood HCO3 19mmol/L (21-28) Arterial Blood Base Excess -5mmol/L (-3-3) FiO2 60 Assessment/Plan Assessment/Plan IMP SEPSIS MET ACIDOSIS HYPOTENSION RESP FAILURE ANEMIA JULIO C PLAN PRESSORS ANTIBIOTICS HD TODAY WILL USE HIGH HCO3 DIALYSATE MIN UF MAY NEED CRRT IF IHD NOT TOLERATED VENT SUPPORT UPDATED FAMILY CARL CAM MD Jul 31, 2016 10:40
[2016-07-31] MEDS ORDERED: ALBUMIN HUMAN 25% 100 ML IV ONE ×2 (11:15)
[2016-07-31] MEDS ORDERED: IV NORMAL SALINE 1000ML BAG 1,000 ML IV PRN (11:33)
[2016-07-31] MEDS ORDERED: DIALYSIS PATIENT. MC PRN ×2 (11:45)
[2016-07-31] MEDS: FENTANYL STANDARD PCA 30 ML IV PRN (12:02)
[2016-07-31] MEDS: TPN PER PHARMACY MC PRN (12:41)
--- NOTE | 2016-07-31 12:58 | PDOC ---
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 PRESSORS Vitals Vital Signs Date Time Temp Pulse Resp B/P Pulse Ox O2 Delivery O2 Flow Rate FiO2 07/31/16 12:02 Ventilator 07/31/16 11:27 93 07/31/16 08:00 108 84/44 07/31/16 06:00 98.4 30 98.4 07/30/16 19:00 15.0 Lungs: Crackles Cardiovascular: S1, S2 Abdomen: Other (FISTULA WITH LEAKAGE) Extremities: Other (EDEMA) Skin: Warm Labs Laboratory Tests Test 07/30/16 06:55 07/30/16 06:58 07/30/16 11:02 07/30/16 13:25 Sodium Level 142mmol/L (136-145) Potassium Level 3.8mmol/L (3.5-5.1) Chloride Level 111mmol/L (98-107) Carbon Dioxide Level 16mmol/L (21-32) Anion Gap 15 (6-14) Blood Urea Nitrogen 32mg/dL (7-20) Creatinine 1.7mg/dL (0.6-1.0) Estimated GFR (Cockcroft-Gault) 37.0 Glucose Level 116mg/dL (70-99) Calcium Level 8.1mg/dL (8.5-10.1) Phosphorus Level 3.9mg/dL (2.6-4.7) White Blood Count 4.0x10^3/uL (4.0-11.0) Red Blood Count 3.49x10^6/uL (3.50-5.40) Hemoglobin 9.3g/dL (12.0-15.5) Hematocrit 28.8% (36.0-47.0) Mean Corpuscular Volume 83fL (79-100) Mean Corpuscular Hemoglobin 27pg (25-35) Mean Corpuscular Hemoglobin Concent 32g/dL (31-37) Red Cell Distribution Width 20.3% (11.5-14.5) Platelet Count 107x10^3/uL (140-400) Neutrophils (%) (Auto) 93% (31-73) Lymphocytes (%) (Auto) 3% (24-48) Monocytes (%) (Auto) 2% (0-9) Eosinophils (%) (Auto) 0% (0-3) Basophils (%) (Auto) 1% (0-3) Neutrophils # (Auto) 3.7x10^3uL (1.8-7.7) Lymphocytes # (Auto) 0.1x10^3/uL (1.0-4.8) Monocytes # (Auto) 0.1x10^3/uL (0.0-1.1) Eosinophils # (Auto) 0.0x10^3/uL (0.0-0.7) Basophils # (Auto) 0.0x10^3/uL (0.0-0.2) O2 Saturation 88% (92-99) Arterial Blood pH 7.23 (7.35-7.45) Arterial Blood pCO2 at Patient Temp 37mmHg (35-46) Arterial Blood pO2 at Patient Temp 65mmHg (65-108) Arterial Blood HCO3 15mmol/L (21-28) Arterial Blood Base Excess -12mmol/L (-3-3) FiO2 28 Lactic Acid Level 3.3mmol/L (0.4-2.0) Test 07/30/16 16:38 07/30/16 19:40 07/31/16 05:10 07/31/16 07:15 Sodium Level 144mmol/L (136-145) 146mmol/L (136-145) Potassium Level 4.0mmol/L (3.5-5.1) 3.7mmol/L (3.5-5.1) Chloride Level 111mmol/L (98-107) 109mmol/L (98-107) Carbon Dioxide Level 17mmol/L (21-32) 20mmol/L (21-32) Anion Gap 16 (6-14) 17 (6-14) Blood Urea Nitrogen 41mg/dL (7-20) 45mg/dL (7-20) Creatinine 2.0mg/dL (0.6-1.0) 2.6mg/dL (0.6-1.0) Estimated GFR (Cockcroft-Gault) 30.6 22.6 Glucose Level 61mg/dL (70-99) 79mg/dL (70-99) Calcium Level 8.0mg/dL (8.5-10.1) 8.0mg/dL (8.5-10.1) Phosphorus Level 4.1mg/dL (2.6-4.7) Albumin 2.1g/dL (3.4-5.0) O2 Saturation 99% (92-99) Arterial Blood pH 7.32 (7.35-7.45) Arterial Blood pCO2 at Patient Temp 30mmHg (35-46) Arterial Blood pO2 at Patient Temp 307mmHg (65-108) Arterial Blood HCO3 15mmol/L (21-28) Arterial Blood Base Excess -10mmol/L (-3-3) FiO2 100 White Blood Count 4.6x10^3/uL (4.0-11.0) Red Blood Count 3.36x10^6/uL (3.50-5.40) Hemoglobin 8.6g/dL (12.0-15.5) Hematocrit 26.9% (36.0-47.0) Mean Corpuscular Volume 80fL (79-100) Mean Corpuscular Hemoglobin 26pg (25-35) Mean Corpuscular Hemoglobin Concent 32g/dL (31-37) Red Cell Distribution Width 20.2% (11.5-14.5) Platelet Count 78x10^3/uL (140-400) Neutrophils (%) (Auto) 80% (31-73) Lymphocytes (%) (Auto) 13% (24-48) Monocytes (%) (Auto) 6% (0-9) Eosinophils (%) (Auto) 1% (0-3) Basophils (%) (Auto) 1% (0-3) Neutrophils # (Auto) 3.6x10^3uL (1.8-7.7) Lymphocytes # (Auto) 0.6x10^3/uL (1.0-4.8) Monocytes # (Auto) 0.3x10^3/uL (0.0-1.1) Eosinophils # (Auto) 0.0x10^3/uL (0.0-0.7) Basophils # (Auto) 0.0x10^3/uL (0.0-0.2) Magnesium Level 3.1mg/dL (1.8-2.4) Lactic Acid Level 4.7mmol/L (0.4-2.0) Test 07/31/16 08:00 O2 Saturation 88% (92-99) Arterial Blood pH 7.41 (7.35-7.45) Arterial Blood pCO2 at Patient Temp 30mmHg (35-46) Arterial Blood pO2 at Patient Temp 59mmHg (65-108) Arterial Blood HCO3 19mmol/L (21-28) Arterial Blood Base Excess -5mmol/L (-3-3) FiO2 60 Laboratory Tests Test 07/30/16 13:25 07/30/16 16:38 07/30/16 19:40 07/31/16 05:10 Lactic Acid Level 3.3mmol/L (0.4-2.0) Sodium Level 144mmol/L (136-145) 146mmol/L (136-145) Potassium Level 4.0mmol/L (3.5-5.1) 3.7mmol/L (3.5-5.1) Chloride Level 111mmol/L (98-107) 109mmol/L (98-107) Carbon Dioxide Level 17mmol/L (21-32) 20mmol/L (21-32) Anion Gap 16 (6-14) 17 (6-14) Blood Urea Nitrogen 41mg/dL (7-20) 45mg/dL (7-20) Creatinine 2.0mg/dL (0.6-1.0) 2.6mg/dL (0.6-1.0) Estimated GFR (Cockcroft-Gault) 30.6 22.6 Glucose Level 61mg/dL (70-99) 79mg/dL (70-99) Calcium Level 8.0mg/dL (8.5-10.1) 8.0mg/dL (8.5-10.1) Phosphorus Level 4.1mg/dL (2.6-4.7) Albumin 2.1g/dL (3.4-5.0) O2 Saturation 99% (92-99) Arterial Blood pH 7.32 (7.35-7.45) Arterial Blood pCO2 at Patient Temp 30mmHg (35-46) Arterial Blood pO2 at Patient Temp 307mmHg (65-108) Arterial Blood HCO3 15mmol/L (21-28) Arterial Blood Base Excess -10mmol/L (-3-3) FiO2 100 White Blood Count 4.6x10^3/uL (4.0-11.0) Red Blood Count 3.36x10^6/uL (3.50-5.40) Hemoglobin 8.6g/dL (12.0-15.5) Hematocrit 26.9% (36.0-47.0) Mean Corpuscular Volume 80fL (79-100) Mean Corpuscular Hemoglobin 26pg (25-35) Mean Corpuscular Hemoglobin Concent 32g/dL (31-37) Red Cell Distribution Width 20.2% (11.5-14.5) Platelet Count 78x10^3/uL (140-400) Neutrophils (%) (Auto) 80% (31-73) Lymphocytes (%) (Auto) 13% (24-48) Monocytes (%) (Auto) 6% (0-9) Eosinophils (%) (Auto) 1% (0-3) Basophils (%) (Auto) 1% (0-3) Neutrophils # (Auto) 3.6x10^3uL (1.8-7.7) Lymphocytes # (Auto) 0.6x10^3/uL (1.0-4.8) Monocytes # (Auto) 0.3x10^3/uL (0.0-1.1) Eosinophils # (Auto) 0.0x10^3/uL (0.0-0.7) Basophils # (Auto) 0.0x10^3/uL (0.0-0.2) Magnesium Level 3.1mg/dL (1.8-2.4) Test 07/31/16 07:15 07/31/16 08:00 Lactic Acid Level 4.7mmol/L (0.4-2.0) O2 Saturation 88% (92-99) Arterial Blood pH 7.41 (7.35-7.45) Arterial Blood pCO2 at Patient Temp 30mmHg (35-46) Arterial Blood pO2 at Patient Temp 59mmHg (65-108) Arterial Blood HCO3 19mmol/L (21-28) Arterial Blood Base Excess -5mmol/L (-3-3) FiO2 60 Medications Active Scripts Medications Dose Route/Sig Days Date Category Dilaudid (Hydromorphone Hcl) 4 Mg Tablet 4 Mg PO Q6HRS 06/29/16 Rx Phenazopyridine Hcl 200 Mg Tablet 200 Mg PO PRN TID PRN 06/29/16 Rx FENTANYL 50mcg/hr (Fentanyl) 1 Each Patch.td72 1 Patch TD Q3DAYS 06/29/16 Rx Anaspaz (Hyoscyamine Sulfate) 0.125 Mg Tab.rapdis 0.125 Mg PO Q6HRS PRN 06/29/16 Rx Cefpodoxime Proxetil 200 Mg Tablet 200 Mg PO BID 06/29/16 Rx Sertraline Hcl 50 Mg Tablet 100 Mg PO DAILY 30 05/12/16 Rx Protonix (Pantoprazole Sodium) 40 Mg Tablet.dr 1 Tab PO DAILY 12/27/15 Rx Zinc Oxide 56.7 Gm Oint...g. 1 Sang TP BID 12/18/15 Rx Lidocaine 35.44 Gm Oint...g. 1 Sang TP BID 12/18/15 Rx Ondansetron Odt (Ondansetron) 4 Mg Tab.rapdis 8 Mg PO PRN Q8HRS PRN 07/03/15 Rx Gas-X (Simethicone) 80 Mg Tab.chew 80 Mg PO PRN QID PRN 09/30/14 Rx Lorazepam 0.5 Mg Tablet 0.5 Mg PO PRN BID PRN 11/08/13 Reported Comments NO CHANGE IN INFILTRATES Impression . 1. Acute respiratory failure, multifactorial. 2. Septic shock. 3. Bilateral pulmonary infiltrates compatible with pulmonary edema, possible pneumonia. 4. Fungemia. 5. Chronic enterocutaneous fistula. 6. Metabolic toxic encephalopathy. 7. Acute renal failure. 8. [id number] protein malnutrition, present upon admission. 9. Metabolic acidosis. Plan . SPOKE WITH FAMILY PT IS TOO SICK TO UNDERGO A BRONCH THERE WAS SOME CONCERN FROM OTHER DOCTORS THAT SHE MAY HAVE A TRACHEAL FISTULA. NO APPARENT REASON FOR FISTULA, I WOULD EXPECT PLEURAL FLUID. NO RECENT ESOPHAGEAL PROBLEMS WILL CONTINUE THE SAME FOR NOW I DON'T THINK PT WILL SURVIVE THIS ADMISSION INCREASE PEEP NEEDED MAY NEED TO INVERSE I:E RATIO ANTIBX PER WENDI MONGE MD Jul 31, 2016 12:58
[2016-07-31] MEDS: MIDAZOLAM PREMIX 100 ML IV PRN (13:18)
--- NOTE | 2016-07-31 14:56 | PDOC ---
PROGRESS NOTES Subjective Subjective seen earlier today. discussed with nurse and patients family. she was intubated last night and received hemodialysis this morning. receiving iv dopamine and bicarbonate drip. she is making some urine. lab reviewed. creatinine 2.9. lactic acid level 4.7. blood cultures grew ana glabrata and PICC tip growing yeast. Objective Objective Vital Signs Date Time Temp Pulse Resp B/P Pulse Ox O2 Delivery O2 Flow Rate FiO2 07/31/16 13:00 98.4 112 32 112/58 96 Ventilator 98.4 07/31/16 12:32 15.0 Intake and Output 07/31/16 07:00 Intake Total 1496 ml Output Total 658 ml Balance 838 ml IV Total 1496 ml Output Urine Total 658 ml Physical Exam Abdomen: Soft, Other (enterocutaneous fistula) Heart: Regular rate, Normal S1, Normal S2 Extremities: Other (1 plus edema legs) General: Other (on ventilator) HEENT: Atraumatic Lungs: Other (clear anteriorly) Neuro: Other (sedated on ventilator) Psych/Mental Status: Other (sedated on ventilator) Skin: No rashes Assessment Assessment Problems Medical Problems:ana glabrata fungemia with severe sepsis and shock acute hypoxic respiratory failure. intubated on ventilator metabolic encephalopathy acute kidney injury due to ATN from sepsis. hemodialysis today bilateral lung infiltrates. suspect ARDS metabolic acidosis thrombocytopenia due to sepsis 4. Enterocutaneous fistula. 5. Enterovesical fistula. 6. Anemia of chronic disease. 7. Moderately severe protein calorie malnutrition. (1) Abdominal pain Status: Acute (2) Enterocutaneous fistula Status: Acute (3) Sepsis Status: Acute (4) Urinary tract infection Status: Acute (5) UTI (urinary tract infection) Status: Acute Plan Plan of Care continue iv micafungin continue iv dopamine ventilator support hemodialysis today iv fluids with sodium bicarbonate monitor urine output consider resuming TPN tomorrow Comment Review of Relevant I have reviewed the following items lucila (where applicable) has been applied. Labs Laboratory Tests Test 07/30/16 06:55 07/30/16 06:58 07/30/16 11:02 07/30/16 13:25 Sodium Level 142mmol/L (136-145) Potassium Level 3.8mmol/L (3.5-5.1) Chloride Level 111mmol/L (98-107) Carbon Dioxide Level 16mmol/L (21-32) Anion Gap 15 (6-14) Blood Urea Nitrogen 32mg/dL (7-20) Creatinine 1.7mg/dL (0.6-1.0) Estimated GFR (Cockcroft-Gault) 37.0 Glucose Level 116mg/dL (70-99) Calcium Level 8.1mg/dL (8.5-10.1) Phosphorus Level 3.9mg/dL (2.6-4.7) White Blood Count 4.0x10^3/uL (4.0-11.0) Red Blood Count 3.49x10^6/uL (3.50-5.40) Hemoglobin 9.3g/dL (12.0-15.5) Hematocrit 28.8% (36.0-47.0) Mean Corpuscular Volume 83fL (79-100) Mean Corpuscular Hemoglobin 27pg (25-35) Mean Corpuscular Hemoglobin Concent 32g/dL (31-37) Red Cell Distribution Width 20.3% (11.5-14.5) Platelet Count 107x10^3/uL (140-400) Neutrophils (%) (Auto) 93% (31-73) Lymphocytes (%) (Auto) 3% (24-48) Monocytes (%) (Auto) 2% (0-9) Eosinophils (%) (Auto) 0% (0-3) Basophils (%) (Auto) 1% (0-3) Neutrophils # (Auto) 3.7x10^3uL (1.8-7.7) Lymphocytes # (Auto) 0.1x10^3/uL (1.0-4.8) Monocytes # (Auto) 0.1x10^3/uL (0.0-1.1) Eosinophils # (Auto) 0.0x10^3/uL (0.0-0.7) Basophils # (Auto) 0.0x10^3/uL (0.0-0.2) O2 Saturation 88% (92-99) Arterial Blood pH 7.23 (7.35-7.45) Arterial Blood pCO2 at Patient Temp 37mmHg (35-46) Arterial Blood pO2 at Patient Temp 65mmHg (65-108) Arterial Blood HCO3 15mmol/L (21-28) Arterial Blood Base Excess -12mmol/L (-3-3) FiO2 28 Lactic Acid Level 3.3mmol/L (0.4-2.0) Test 07/30/16 16:38 07/30/16 19:40 07/31/16 05:10 07/31/16 07:15 Sodium Level 144mmol/L (136-145) 146mmol/L (136-145) Potassium Level 4.0mmol/L (3.5-5.1) 3.7mmol/L (3.5-5.1) Chloride Level 111mmol/L (98-107) 109mmol/L (98-107) Carbon Dioxide Level 17mmol/L (21-32) 20mmol/L (21-32) Anion Gap 16 (6-14) 17 (6-14) Blood Urea Nitrogen 41mg/dL (7-20) 45mg/dL (7-20) Creatinine 2.0mg/dL (0.6-1.0) 2.6mg/dL (0.6-1.0) Estimated GFR (Cockcroft-Gault) 30.6 22.6 Glucose Level 61mg/dL (70-99) 79mg/dL (70-99) Calcium Level 8.0mg/dL (8.5-10.1) 8.0mg/dL (8.5-10.1) Phosphorus Level 4.1mg/dL (2.6-4.7) Albumin 2.1g/dL (3.4-5.0) O2 Saturation 99% (92-99) Arterial Blood pH 7.32 (7.35-7.45) Arterial Blood pCO2 at Patient Temp 30mmHg (35-46) Arterial Blood pO2 at Patient Temp 307mmHg (65-108) Arterial Blood HCO3 15mmol/L (21-28) Arterial Blood Base Excess -10mmol/L (-3-3) FiO2 100 White Blood Count 4.6x10^3/uL (4.0-11.0) Red Blood Count 3.36x10^6/uL (3.50-5.40) Hemoglobin 8.6g/dL (12.0-15.5) Hematocrit 26.9% (36.0-47.0) Mean Corpuscular Volume 80fL (79-100) Mean Corpuscular Hemoglobin 26pg (25-35) Mean Corpuscular Hemoglobin Concent 32g/dL (31-37) Red Cell Distribution Width 20.2% (11.5-14.5) Platelet Count 78x10^3/uL (140-400) Neutrophils (%) (Auto) 80% (31-73) Lymphocytes (%) (Auto) 13% (24-48) Monocytes (%) (Auto) 6% (0-9) Eosinophils (%) (Auto) 1% (0-3) Basophils (%) (Auto) 1% (0-3) Neutrophils # (Auto) 3.6x10^3uL (1.8-7.7) Lymphocytes # (Auto) 0.6x10^3/uL (1.0-4.8) Monocytes # (Auto) 0.3x10^3/uL (0.0-1.1) Eosinophils # (Auto) 0.0x10^3/uL (0.0-0.7) Basophils # (Auto) 0.0x10^3/uL (0.0-0.2) Magnesium Level 3.1mg/dL (1.8-2.4) Lactic Acid Level 4.7mmol/L (0.4-2.0) Test 07/31/16 08:00 O2 Saturation 88% (92-99) Arterial Blood pH 7.41 (7.35-7.45) Arterial Blood pCO2 at Patient Temp 30mmHg (35-46) Arterial Blood pO2 at Patient Temp 59mmHg (65-108) Arterial Blood HCO3 19mmol/L (21-28) Arterial Blood Base Excess -5mmol/L (-3-3) FiO2 60 Laboratory Tests Test 07/30/16 16:38 07/30/16 19:40 07/31/16 05:10 07/31/16 07:15 Sodium Level 144mmol/L (136-145) 146mmol/L (136-145) Potassium Level 4.0mmol/L (3.5-5.1) 3.7mmol/L (3.5-5.1) Chloride Level 111mmol/L (98-107) 109mmol/L (98-107) Carbon Dioxide Level 17mmol/L (21-32) 20mmol/L (21-32) Anion Gap 16 (6-14) 17 (6-14) Blood Urea Nitrogen 41mg/dL (7-20) 45mg/dL (7-20) Creatinine 2.0mg/dL (0.6-1.0) 2.6mg/dL (0.6-1.0) Estimated GFR (Cockcroft-Gault) 30.6 22.6 Glucose Level 61mg/dL (70-99) 79mg/dL (70-99) Calcium Level 8.0mg/dL (8.5-10.1) 8.0mg/dL (8.5-10.1) Phosphorus Level 4.1mg/dL (2.6-4.7) Albumin 2.1g/dL (3.4-5.0) O2 Saturation 99% (92-99) Arterial Blood pH 7.32 (7.35-7.45) Arterial Blood pCO2 at Patient Temp 30mmHg (35-46) Arterial Blood pO2 at Patient Temp 307mmHg (65-108) Arterial Blood HCO3 15mmol/L (21-28) Arterial Blood Base Excess -10mmol/L (-3-3) FiO2 100 White Blood Count 4.6x10^3/uL (4.0-11.0) Red Blood Count 3.36x10^6/uL (3.50-5.40) Hemoglobin 8.6g/dL (12.0-15.5) Hematocrit 26.9% (36.0-47.0) Mean Corpuscular Volume 80fL (79-100) Mean Corpuscular Hemoglobin 26pg (25-35) Mean Corpuscular Hemoglobin Concent 32g/dL (31-37) Red Cell Distribution Width 20.2% (11.5-14.5) Platelet Count 78x10^3/uL (140-400) Neutrophils (%) (Auto) 80% (31-73) Lymphocytes (%) (Auto) 13% (24-48) Monocytes (%) (Auto) 6% (0-9) Eosinophils (%) (Auto) 1% (0-3) Basophils (%) (Auto) 1% (0-3) Neutrophils # (Auto) 3.6x10^3uL (1.8-7.7) Lymphocytes # (Auto) 0.6x10^3/uL (1.0-4.8) Monocytes # (Auto) 0.3x10^3/uL (0.0-1.1) Eosinophils # (Auto) 0.0x10^3/uL (0.0-0.7) Basophils # (Auto) 0.0x10^3/uL (0.0-0.2) Magnesium Level 3.1mg/dL (1.8-2.4) Lactic Acid Level 4.7mmol/L (0.4-2.0) Test 07/31/16 08:00 O2 Saturation 88% (92-99) Arterial Blood pH 7.41 (7.35-7.45) Arterial Blood pCO2 at Patient Temp 30mmHg (35-46) Arterial Blood pO2 at Patient Temp 59mmHg (65-108) Arterial Blood HCO3 19mmol/L (21-28) Arterial Blood Base Excess -5mmol/L (-3-3) FiO2 60 Microbiology 07/28/16 Blood Culture - Preliminary, Resulted 07/28/16 Blood Culture Result 1 (ROYA) - Preliminary, Resulted 07/15/16 Urine Culture - Final, Complete 07/15/16 Urine Culture Result 1 (ROYA) - Final, Complete 07/15/16 Urine Culture Result 2 (ROYA) - Final, Complete 07/15/16 Antimicrobic Susceptibility - Final, Complete 07/29/16 Aerobic Culture - Preliminary, Resulted 07/29/16 Aerobic Culture Result 1 (ROYA) - Preliminary, Resulted Medications Current Medications Piperacillin Sod/ Tazobactam Sod/ Sodium Chloride (Zosyn/Iv Sodium Chloride 0.9 % 100ml) 100 ml @ 200 mls/hr 1X ONCE IV Last administered on 07/15/16 22:56; Start 07/15/16 at 22:00; Stop 07/15/16 at 22:29; Status DC Fentanyl Citrate 50 mcg 50 mcg PRN Q15MIN PRN IV PAIN GREATER THAN 3/10 Last administered on 07/16/16 00:30; Start 07/15/16 at 21:45; Stop 07/16/16 at 02:00; Status DC Sodium Chloride 1,000 ml @ 1,000 mls/hr 1X ONCE IV Last administered on 21:59; Start 07/15/16 at 22:00; Stop 07/15/16 at 22:59; Status DC Sodium Chloride (Iv Sodium Chloride 0.9% 500ml Bag) 500 ml @ 500 mls/hr 1X ONCE IV Last administered on 07/15/16 22:00; Start 07/15/16 at 22:00; Stop at 22:59; Status DC Ondansetron HCl (Zofran) 4 mg PRN Q8HRS PRN IV NAUSEA/VOMITING; Start 07/15/16 at 23:30; Stop 07/16/16 at 08:52; Status DC Fentanyl Citrate 50 mcg 50 mcg PRN Q2HR PRN IV SEVERE PAIN Last administered on 07/16/16 08:10; Start 07/15/16 at 23:30; Stop 07/16/16 at 08:52; Status DC Sodium Chloride (Iv Sodium Chloride 0.9% 1000ml Bag) 1,000 ml @ 150 mls/hr Q6H40M IV Last administered on 07/15/16 02:00; Start 07/15/16 at 23:45; Stop 07/16/16 at 08:52; Status DC Acetaminophen (Tylenol) 650 mg PRN Q4HRS PRN PO FEVER; Start 07/15/16 at 23:30; Stop 07/16/16 at 23:29; Status DC Info (Do NOT chart on this placeholder) 1 each PRN DAILY PRN MC NEEDS VERIFICATION; Start 07/16/16 at 03:00; Status Cancel Acetaminophen 650 mg 650 mg PRN Q4HRS PRN PO MILD PAIN / TEMP Last administered on 07/28/16 07:42; Start 07/16/16 at 08:45; Stop 07/29/16 at 08:33 ; Status DC Piperacillin Sod/ Tazobactam Sod 3.375 gm/Sodium Chloride 50 ml @ 100 mls/hr Q6HRS IV Last administered on 07/18/16 05:50; Start 07/16/16 at 10:00; Stop 07/18 at 13:28; Status DC Linezolid (Zyvox Premix) 300 ml @ 300 mls/hr Q12HR IV Last administered on 07/18 08:34; Start 07/16/16 at 10:00; Stop 07/18/16 at 13:28; Status DC Hydromorphone HCl (Dilaudid) 2 mg PRN Q4HRS PRN IV MODERATE PAIN Last administered on 07/28/16 23:33; Start 07/16/16 at 08:45 Hydromorphone HCl (Dilaudid) 4 mg PRN Q4HRS PRN IV SEVERE PAIN Last administered on 07/30/16 09:23; Start 07/16/16 at 08:45 Pantoprazole Sodium (Protonix) 40 mg DAILYAC PO Last administered on 07/27/16 11:11; Start 07/16/16 at 09:30; Stop 07/29/16 at 08:44; Status DC Hyoscyamine (Anaspaz) 0.125 mg Q6HRS PO Last administered on 07/20/16 05:20; Start 07/16/16 at 12:00; Stop 07/20/16 at 08:58; Status DC Phenazopyridine HCl (Pyridium) 200 mg TID PO Last administered on 07/20/16 08: 25; Start 07/16/16 at 09:30; Stop 07/20/16 at 08:58; Status DC Lorazepam (Ativan) 0.5 mg PRN BID PRN PO ANXIETY / AGITATION Last administered on 07/29/16 02:16; Start 07/16/16 at 08:45 Simethicone (Gas-X) 80 mg PRN Q4HRS PRN PO GAS / BLOATING Last administered on 07/24/16 22:30; Start 07/16/16 at 08:45 Zolpidem Tartrate 5 mg 5 mg PRN QHS PRN PO INSOMNIA Last administered on 23:14; Start 07/16/16 at 08:45 Potassium Chloride/Dextrose/ Sod Cl 1,000 ml @ 80 mls/hr [id number] IV Last administered on 07/16/16 10:54; Start 07/16/16 at 09:30; Stop 07/16/16 at 21:59; Status DC Fluconazole/ Sodium Chloride (Diflucan 200mg/ 100ml Premix) 100 ml @ 100 mls/ hr Q24H IV Last administered on 07/18/16 11:43; Start 07/16/16 at 11:00; Stop at 13:28; Status DC Info 1 each 1 each PRN DAILY PRN MC SEE COMMENTS Last administered on 12:41; Start 07/16/16 at 10:00 Sodium Chloride 220 meq/Sodium Acetate 90 meq/ Potassium Chloride 50 meq/ Potassium Acetate 15 meq/Potassium Phosphate 10 mmol/ Magnesium Sulfate 50 meq/ Calcium Gluconate 6 meq/ Multivitamins/ Minerals 10 ml/ Chromium/Copper/ Manganese/Seleni/ Zn 1 ml/Total Parenteral Nutrition/Amino Acids/Dextro... 1, 920 ml @ 80 mls/hr TPN CONT IV ; Start 07/16/16 at 22:00; Stop 07/16/16 at 22:00 ; Status DC Sodium Chloride/ Sodium Acetate/ Potassium Chloride/ Potassium Acetate/ Potassium Phosphate/ Magnesium Sulfate/ Calcium Gluconate/ Multivitamins/ Minerals/Chromium/ Copper/Manganese/ Seleni/Zn/Total Parenteral Nutrition/Amino Acids/Dextrose/ Fat Emulsion Intravenous (Sodium Chlori... 1,820 ml @ 75.833 mls/ hr TPN CONT IV Last administered on 07/16/16 21:03; Start 07/16/16 at 22: 00; Stop 07/17/16 at 21:59; Status DC Ondansetron HCl (Zofran) 4 mg PRN Q6HRS PRN IV NAUSEA/VOMITING Last administered on 07/21/16 08:48; Start 07/16/16 at 17:15 Diphenhydramine HCl (Benadryl) 25 mg PRN Q6HRS PRN PO ITCHING Last administered on 07/25/16 23:38; Start 07/16/16 at 17:45 Lidocaine (Xylocaine) 1 sang BID TP Last administered on 07/31/16 09:17; Start 07/17/16 at 09:00 Zinc Oxide 1 sang 1 sang BID TP Last administered on 07/31/16 09:17; Start at 09:30 Sodium Chloride/ Sodium Acetate/ Potassium Chloride/ Potassium Acetate/ Potassium Phosphate/ Magnesium Sulfate/ Calcium Gluconate/ Multivitamins/ Minerals/Chromium/ Copper/Manganese/ Seleni/Zn/Total Parenteral Nutrition/Amino Acids/Dextrose/ Fat Emulsion Intravenous (Sodium Chlori... 1,920 ml @ 80 mls/ hr TPN CONT IV Last administered on 07/17/16 22:13; Start 07/17/16 at 22:00; Stop 07/18/16 at 21:59; Status DC Furosemide 40 mg 40 mg 1X ONCE IVP Last administered on 07/18/16 11:43; Start 07/18/16 at 11:00; Stop 07/18/16 at 11:07; Status DC Sodium Chloride 220 meq/Sodium Acetate 90 meq/ Potassium Chloride 50 meq/ Potassium Acetate 15 meq/Potassium Phosphate 10 mmol/ Magnesium Sulfate 50 meq/ Calcium Gluconate 3 meq/ Multivitamins/ Minerals 10 ml/ Chromium/Copper/ Manganese/Seleni/ Zn 1 ml/Total Parenteral Nutrition/Amino Acids/Dextro... 1, 920 ml @ 80 mls/hr TPN CONT IV Last administered on 07/19/16 00:03; Start 07/18/16 at 22:00; Stop 07/19/16 at 21:59; Status DC Meropenem 1 gm/ Sodium Chloride 100 ml @ 200 mls/hr Q8HRS IV Last administered on 07/20/16 05:21; Start 07/18/16 at 14:00; Stop 07/20/16 at 11:25; Status DC Micafungin Sodium 100 mg/Dextrose 100 ml @ 100 mls/hr Q24H IV Last administered on 07/19/16 15:05; Start 07/18/16 at 14:00; Stop 07/20/16 at 11:25; Status DC Daptomycin/Sodium Chloride (Cubicin/Iv Sodium Chloride 0.9% 50ml) 50 ml @ 100 mls/hr Q24H IV Last administered on 07/19/16 16:56; Start 07/18/16 at 15:00; Stop 07/20/16 at 11:25; Status DC Alteplase, Recombinant (Cathflo) 2 mg 1X ONCE INT CAT Last administered on 07/19 06:24; Start 07/19/16 at 07:00; Stop 07/19/16 at 07:01; Status DC Gentamicin Sulfate 1 each 1 each PRN DAILY PRN MC SEE COMMENTS Last administered on 07/25/16 15:31; Start 07/19/16 at 12:15; Stop 07/25/16 at 16:14 ; Status DC Gentamicin Sulfate/Sodium Chloride (Iv Sodium Chloride 0.9% 100ml) 106.75 ml @ 106.75 mls/hr Q24H IV Last administered on 07/25/16 15:31; Start 07/19/16 at 13 :00; Stop 07/25/16 at 16:12; Status DC Gentamicin Sulfate 1 each 1 each 1X ONCE MC Last administered on 07/19/16 23: 00; Start 07/19/16 at 23:00; Stop 07/19/16 at 23:01; Status DC Sodium Chloride/ Sodium Acetate/ Potassium Chloride/ Potassium Acetate/ Potassium Phosphate/ Magnesium Sulfate/ Calcium Gluconate/ Multivitamins/ Minerals/Chromium/ Copper/Manganese/ Seleni/Zn/Total Parenteral Nutrition/Amino Acids/Dextrose/ Fat Emulsion Intravenous (Sodium Chlori... 1,920 ml @ 80 mls/ hr TPN CONT IV Last administered on 07/19/16 20:51; Start 07/19/16 at 22:00; Stop 07/20/16 at 21:59; Status DC Hyoscyamine (Anaspaz) 0.125 mg PRN Q6HRS PRN PO BLADDER SPASM; Start 07/20/16 at 09:00 Phenazopyridine HCl 200 mg 200 mg PRN TID PRN PO BLADDER SPASM Last administered on 07/21/16 20:14; Start 07/20/16 at 09:00 Linezolid 300 ml @ 300 mls/hr Q12HR IV Last administered on 07/25/16 09:02; Start 07/20/16 at 12:00; Stop 07/25/16 at 16:12; Status DC Sodium Chloride 220 meq/Sodium Acetate 90 meq/ Potassium Chloride 50 meq/ Potassium Acetate 15 meq/Potassium Phosphate 10 mmol/ Magnesium Sulfate 50 meq/ Calcium Gluconate 3 meq/ Multivitamins/ Minerals 10 ml/ Chromium/Copper/ Manganese/Seleni/ Zn 1 ml/Total Parenteral Nutrition/Amino Acids/Dextro... 1, 920 ml @ 80 mls/hr TPN CONT IV Last administered on 07/20/16 21:30; Start 07/20/16 at 22:00; Stop 07/21/16 at 21:59; Status DC Sodium Chloride/ Sodium Acetate/ Potassium Chloride/ Potassium Acetate/ Potassium Phosphate/ Magnesium Sulfate/ Multivitamins/ Minerals/Chromium/ Copper /Manganese/ Seleni/Zn/Total Parenteral Nutrition/Amino Acids/Dextrose/ Fat Emulsion Intravenous (Sodium Chloride/ Potass... 1,920 ml @ 80 mls/hr TPN CONT IV Last administered on 07/21/16 22:05; Start 07/21/16 at 22:00; Stop at 21:59; Status DC Alteplase, Recombinant 2 mg 2 mg PRN DAILY PRN INT CAT INFLAMMATION Last administered on 07/27/16 11:31; Start 07/21/16 at 15:00 Sodium Chloride 220 meq/Sodium Acetate 90 meq/ Potassium Chloride 50 meq/ Potassium Acetate 15 meq/Potassium Phosphate 10 mmol/ Magnesium Sulfate 50 meq/ Multivitamins/ Minerals 10 ml/ Chromium/Copper/ Manganese/Seleni/ Zn 1 ml/Total Parenteral Nutrition/Amino Acids/Dextrose/ Fat Emuls... 1,920 ml @ 80 mls/hr TPN CONT IV Last administered on 07/22/16 20:53; Start 07/22/16 at 22:00; Stop 07/23/16 at 21:59; Status DC Sodium Chloride/ Sodium Acetate/ Potassium Chloride/ Potassium Acetate/ Potassium Phosphate/ Magnesium Sulfate/ Multivitamins/ Minerals/Chromium/ Copper /Manganese/ Seleni/Zn/Total Parenteral Nutrition/Amino Acids/Dextrose/ Fat Emulsion Intravenous (Sodium Chloride/ Potass... 1,920 ml @ 80 mls/hr TPN CONT IV Last administered on 07/23/16 21:16; Start 07/23/16 at 22:00; Stop 07/24 at 21:59; Status DC Gentamicin Sulfate 1 each 1 each 1X ONCE MC ; Start 07/23/16 at 22:00; Stop 07/23 at 22:01; Status Cancel Sodium Chloride/ Sodium Acetate/ Potassium Chloride/ Potassium Acetate/ Potassium Phosphate/ Magnesium Sulfate/ Multivitamins/ Minerals/Chromium/ Copper /Manganese/ Seleni/Zn/Total Parenteral Nutrition/Amino Acids/Dextrose/ Fat Emulsion Intravenous (Sodium Chloride/ Potass... 1,920 ml @ 80 mls/hr TPN CONT IV Last administered on 07/24/16 21:15; Start 07/24/16 at 22:00; Stop 04/30 at 21:59; Status DC Gentamicin Sulfate 1 each 1X ONCE MC ; Start 07/25/16 at 12:30; Stop 07/25/16 at 12:31; Status Cancel Amlodipine Besylate 5 mg 5 mg DAILY PO Last administered on 07/27/16 11:12; Start 07/25/16 at 12:00; Stop 07/29/16 at 08:44; Status DC Sodium Chloride 220 meq/Sodium Acetate 90 meq/ Potassium Chloride 30 meq/ Potassium Acetate 15 meq/Potassium Phosphate 10 mmol/ Magnesium Sulfate 50 meq/ Multivitamins/ Minerals 10 ml/ Chromium/Copper/ Manganese/Seleni/ Zn 1 ml/Total Parenteral Nutrition/Amino Acids/Dextrose/ Fat Emuls... 1,920 ml @ 80 mls/hr TPN CONT IV Last administered on 07/25/16 22:25; Start 07/25/16 at 22:00; Stop 07/26/16 at 21:59; Status DC Sodium Chloride/ Sodium Acetate/ Potassium Chloride/ Potassium Acetate/ Potassium Phosphate/ Magnesium Sulfate/ Multivitamins/ Minerals/Chromium/ Copper /Manganese/ Seleni/Zn/Total Parenteral Nutrition/Amino Acids/Dextrose/ Fat Emulsion Intravenous (Sodium Chloride/ Potass... 1,920 ml @ 80 mls/hr TPN CONT IV Last administered on 07/26/16 23:16; Start 07/26/16 at 22:00; Stop at 21:59; Status DC Furosemide 20 mg 20 mg 1X ONCE IVP Last administered on 07/27/16 11:31; Start 07/27/16 at 09:00; Stop 07/27/16 at 09:01; Status DC Daptomycin 340 mg/ Sodium Chloride 50 ml @ 100 mls/hr Q24H IV Last administered on 07/29/16 15:05; Start 07/27/16 at 13:00; Stop 07/30/16 at 07:25 ; Status DC Piperacillin Sod/ Tazobactam Sod 3.375 gm/Sodium Chloride 50 ml @ 100 mls/hr Q6HRS IV Last administered on 07/30/16 05:30; Start 07/27/16 at 12:30; Stop at 07:25; Status DC Fluconazole/ Sodium Chloride 100 ml @ 100 mls/hr Q24H IV Last administered on 07/28/16 13:32; Start 07/27/16 at 13:00; Stop 07/29/16 at 00:53; Status DC Sodium Chloride 1,000 ml @ 1,000 mls/hr 1X ONCE IV Last administered on 12:34; Start 07/27/16 at 12:30; Stop 07/27/16 at 13:29; Status DC Sodium Chloride 220 meq/Sodium Acetate 90 meq/ Potassium Chloride 30 meq/ Potassium Acetate 15 meq/Potassium Phosphate 10 mmol/ Magnesium Sulfate 45 meq/ Multivitamins/ Minerals 10 ml/ Chromium/Copper/ Manganese/Seleni/ Zn 1 ml/Total Parenteral Nutrition/Amino Acids/Dextrose/ Fat Emuls... 1,920 ml @ 80 mls/hr TPN CONT IV Last administered on 07/27/16 22:38; Start 07/27/16 at 22:00; Stop 07/28/16 at 21:59; Status DC Sodium Chloride (Iv Sodium Chloride 0.9% 1000ml Bag) 1,000 ml @ 45 mls/hr [id number] IV Last administered on 07/28/16 03:24; Start 07/27/16 at 17:00; Stop 07/28/16 at 10:27; Status DC Acetaminophen 650 mg 650 mg PRN Q6HRS PRN GA fever Last administered on 03:57; Start 07/27/16 at 16:30; Stop 07/29/16 at 08:33; Status DC Sodium Chloride 1,000 ml @ 427.5 mls/ hr Q2H21M IV Last administered on 19:30; Start 07/27/16 at 19:30; Stop 07/27/16 at 23:30; Status DC Sodium Chloride 220 meq/Sodium Acetate 90 meq/ Potassium Chloride 30 meq/ Potassium Acetate 15 meq/Potassium Phosphate 10 mmol/ Magnesium Sulfate 45 meq/ Multivitamins/ Minerals 10 ml/ Chromium/Copper/ Manganese/Seleni/ Zn 1 ml/Total Parenteral Nutrition/Amino Acids/Dextrose/ Fat Emuls... 1,920 ml @ 80 mls/hr TPN CONT IV Last administered on 07/28/16 21:43; Start 07/28/16 at 22:00; Stop 07/29/16 at 21:59; Status DC Micafungin Sodium/ Dextrose (Mycamine) 100 ml @ 100 mls/hr Q24H IV Last administered on 07/31/16 00:57; Start 07/29/16 at 01:00 Lorazepam (Ativan) 0.05 mg PRN Q4HRS PRN IV ANXIETY / AGITATION; Start at 02:30; Stop 07/29/16 at 02:48; Status DC Lorazepam (Ativan) 0.5 mg PRN Q4HRS PRN IV ANXIETY / AGITATION Last administered on 07/29/16 03:18; Start 07/29/16 at 03:00 Acetaminophen (Tylenol) 650 mg PRN Q4HRS PRN GA MILD PAIN / TEMP; Start at 08:30 Ketorolac Tromethamine (Toradol) 30 mg PRN Q6HRS PRN IV PAIN/FEVER Last administered on 07/30/16 00:50; Start 07/29/16 at 08:30; Stop 07/30/16 at 13:01 ; Status DC Pantoprazole Sodium 40 mg 40 mg DAILYAC IVP Last administered on 07/31/16 09: 20; Start 07/29/16 at 09:00 Sodium Chloride 1,000 ml @ 45 mls/hr [id number] IV Last administered on 09:17; Start 07/29/16 at 08:45 Sodium Chloride/ Sodium Acetate/ Potassium Chloride/ Potassium Acetate/ Potassium Phosphate/ Magnesium Sulfate/ Multivitamins/ Minerals/Chromium/ Copper /Manganese/ Seleni/Zn/Total Parenteral Nutrition/Amino Acids/Dextrose/ Fat Emulsion Intravenous (Sodium Chloride/ Potass... 1,920 ml @ 80 mls/hr TPN CONT IV Last administered on 07/29/16 22:06; Start 07/29/16 at 22:00; Stop at 21:59; Status DC Lidocaine/Sodium Bicarbonate 20 ml 20 ml STK-MED ONCE IJ ; Start 07/29/16 at 13: 13; Stop 07/29/16 at 13:14; Status DC Heparin Sodium/ Sodium Chloride 500 ml @ As Directed STK-MED ONCE .ROUTE ; Start 07/29/16 at 13:13; Stop 07/29/16 at 13:14; Status DC Lidocaine/ Epinephrine (Xylocaine 1%-Epi 1:100,000) 20 ml STK-MED ONCE .ROUTE ; Start 07/29/16 at 13:22; Stop 07/29/16 at 13:23; Status DC Midazolam HCl (Versed) 5 mg STK-MED ONCE .ROUTE ; Start 07/29/16 at 13:32; Stop 07/29/16 at 13:33; Status DC Fentanyl Citrate (Fentanyl 5ml Vial) 250 mcg STK-MED ONCE .ROUTE ; Start at 13:32; Stop 07/29/16 at 13:33; Status DC Heparin Sodium/ Sodium Chloride 1,000 unit 1X ONCE IART Last administered on 13:45; Start 07/29/16 at 13:45; Stop 07/29/16 at 13:48; Status DC Midazolam HCl (Versed) 5 mg 1X ONCE IV Last administered on 07/29/16 13:45; Start 07/29/16 at 13:45; Stop 07/29/16 at 13:48; Status DC Fentanyl Citrate (Fentanyl 5ml Vial) 250 mcg 1X ONCE IV Last administered on 13:45; Start 07/29/16 at 13:45; Stop 07/29/16 at 13:48; Status DC Lidocaine/ Epinephrine 20 ml 20 ml 1X ONCE IJ Last administered on 07/29/16 13:45; Start 07/29/16 at 13:45; Stop 07/29/16 at 13:48; Status DC Sodium Chloride 220 meq/Sodium Acetate 90 meq/ Potassium Chloride 15 meq/ Potassium Acetate 30 meq/Potassium Phosphate 10 mmol/ Magnesium Sulfate 45 meq/ Multivitamins/ Minerals 10 ml/ Chromium/Copper/ Manganese/Seleni/ Zn 1 ml/Total Parenteral Nutrition/Amino Acids/Dextrose/ Fat Emuls... 1,920 ml @ 80 mls/hr TPN CONT IV ; Start 07/30/16 at 22:00; Stop 07/31/16 at 21:59 Norepinephrine Bitartrate 8 mg/ Sodium Chloride 258 ml @ 1.93 mls/hr 1X ONCE IV Last administered on 07/30/16 11:17; Start 07/30/16 at 11:15; Stop at 15:43; Status DC Norepinephrine Bitartrate/Sodium Chloride (Levophed Vial/ Iv Sodium Chloride 0.9 % 250ml) 258 ml @ 0 mls/hr CONT PRN IV SEE I/O RECORD Last administered on 07/31 09:16; Start 07/30/16 at 11:15 Furosemide 60 mg 60 mg 1X ONCE IVP Last administered on 07/30/16 11:14; Start 07/30/16 at 11:15; Stop 07/30/16 at 11:16; Status DC Sodium Chloride 500 ml @ 500 mls/hr Q1H IV Last administered on 07/30/16 17: 04; Start 07/30/16 at 14:30; Stop 07/30/16 at 15:29; Status DC Albumin Human 100 ml @ 100 mls/hr Q8HRS IV Last administered on 07/31/16 05: 37; Start 07/30/16 at 14:30; Stop 07/31/16 at 06:59; Status DC Furosemide/Sodium Chloride (Lasix Drip/Iv Sodium Chloride 0.9% 100ml) 100 ml @ 0 mls/hr CONT PRN IV SEE I/O RECORD Last administered on 07/31/16 03:17; Start 07/30/16 at 14:30 Ondansetron HCl (Zofran) 8 mg PRN Q8HRS PRN IV NAUSEA/VOMITING Last administered on 07/30/16 14:38; Start 07/30/16 at 14:30 Sodium Bicarbonate 50 meq 50 meq 1X ONCE IV Last administered on 07/30/16 14: 43; Start 07/30/16 at 14:30; Stop 07/30/16 at 14:31; Status DC Heparin Sodium/ Sodium Chloride 500 ml @ As Directed STK-MED ONCE .ROUTE ; Start 07/30/16 at 14:49; Stop 07/30/16 at 14:50; Status DC Lidocaine HCl 20 ml STK-MED ONCE .ROUTE ; Start 07/30/16 at 14:49; Stop at 14:50; Status DC Midazolam HCl (Versed) 2 mg STK-MED ONCE .ROUTE ; Start 07/30/16 at 15:19; Stop 07/30/16 at 15:20; Status DC Heparin Sodium/ Sodium Chloride 1,000 unit 1X ONCE IART Last administered on 15:44; Start 07/30/16 at 15:45; Stop 07/30/16 at 15:46; Status DC Midazolam HCl (Versed) 1.5 mg 1X ONCE IV Last administered on 07/30/16 15:44 ; Start 07/30/16 at 15:45; Stop 07/30/16 at 15:46; Status DC Lidocaine HCl 20 ml 1X ONCE IJ Last administered on 07/30/16 15:44; Start at 15:45; Stop 07/30/16 at 15:46; Status DC Heparin Sodium (Porcine) 14621 unit 10,000 unit STK-MED ONCE .ROUTE ; Start at 15:54; Stop 07/30/16 at 15:55; Status DC Fentanyl Citrate 30 ml @ 0 mls/hr CONT PRN PRN IV PROTOCOL Last administered on 07/31/16 12:02; Start 07/30/16 at 16:45 Sodium Bicarbonate/ Dextrose 1,150 ml @ 125 mls/hr 1X ONCE IV Last administered on 07/30/16 18:34; Start 07/30/16 at 17:30; Stop 07/31/16 at 02:41 ; Status DC Succinylcholine Chloride 200 mg 200 mg STK-MED ONCE .ROUTE ; Start 07/30/16 at 19:47; Stop 07/30/16 at 19:48; Status DC Propofol 100 ml @ As Directed STK-MED ONCE IV ; Start 07/30/16 at 19:48; Stop 07/30/16 at 19:49; Status DC Midazolam HCl (Versed 100mg/ 100ml Premix) 100 ml @ 0 mls/hr CONT PRN IV SEE I/ O RECORD Last administered on 07/31/16 13:18; Start 07/30/16 at 21:15 Sodium Bicarbonate 50 meq 50 meq 1X ONCE IV Last administered on 07/30/16 22: 15; Start 07/30/16 at 22:30; Stop 07/30/16 at 22:31; Status DC Dopamine HCl/ Dextrose 250 ml @ 11.513 mls/ hr CONT PRN IV SEE I/O RECORD Last administered on 07/30/16 22:15; Start 07/30/16 at 22:15 Sodium Bicarbonate/ Dextrose 1,150 ml @ 125 mls/hr Q9H12M IV Last administered on 07/31/16 13:18; Start 07/31/16 at 03:00 Propofol (Diprivan) 1,000 mg STK-MED ONCE IV ; Start 07/30/16 at 20:00; Stop at 08:16; Status DC Succinylcholine Chloride 200 mg 200 mg STK-MED ONCE .ROUTE ; Start 07/30/16 at 20:00; Stop 07/31/16 at 08:16; Status DC Tigecycline 50 mg/ Sodium Chloride 50 ml @ 100 mls/hr Q12HR IV ; Start at 21:00 Tigecycline/ Sodium Chloride (Tygacil/Iv Sodium Chloride 0.9% 100ml) 100 ml @ 200 mls/hr 1X ONCE IV Last administered on 07/31/16t 09:22; Start 07/31/16 at 09:00; Stop 07/31/16 at 09:29; Status DC Darbepoetin Sarbjit 60 mcg 60 mcg WEEKLYHS SQ ; Start 07/31/16 at 21:00 Albumin Human 100 ml @ 100 mls/hr 1X ONCE IV Last administered on 07/31/16t 11:40; Start 07/31/16 at 11:15; Stop 07/31/16 at 12:14; Status DC Albumin Human 100 ml @ 100 mls/hr 1X ONCE IV Last administered on 07/31/16t 12:03; Start 07/31/16 at 11:15; Stop 07/31/16 at 12:14; Status DC Sodium Chloride (Iv Sodium Chloride 0.9% 1000ml Bag) 1,000 ml @ 1,000 mls/hr Q1H PRN IV hypotension; Start 07/31/16 at 11:33; Stop 07/31/16 at 17:32 Info (PHARMACY MONITORING -- do not chart) 1 each PRN DAILY PRN MC SEE COMMENTS ; Start 07/31/16 at 11:45 Info (PHARMACY MONITORING -- do not chart) 1 each PRN DAILY PRN MC SEE COMMENTS ; Start 07/31/16 at 11:45; Status UNV Active Scripts Active Dilaudid (Hydromorphone Hcl) 4 Mg Tablet 4 Mg PO Q6HRS Phenazopyridine Hcl 200 Mg Tablet 200 Mg PO PRN TID PRN FENTANYL 50mcg/hr (Fentanyl) 1 Each Patch.td72 1 Patch TD Q3DAYS Anaspaz (Hyoscyamine Sulfate) 0.125 Mg Tab.rapdis 0.125 Mg PO Q6HRS PRN Cefpodoxime Proxetil 200 Mg Tablet 200 Mg PO BID Sertraline Hcl 50 Mg Tablet 100 Mg PO DAILY 30 Days Protonix (Pantoprazole Sodium) 40 Mg Tablet.dr 1 Tab PO DAILY Zinc Oxide 56.7 Gm Oint...g. 1 Sang TP BID Lidocaine 35.44 Gm Oint...g. 1 Sang TP BID Ondansetron Odt (Ondansetron) 4 Mg Tab.rapdis 8 Mg PO PRN Q8HRS PRN Gas-X (Simethicone) 80 Mg Tab.chew 80 Mg PO PRN QID PRN Reported Lorazepam 0.5 Mg Tablet 0.5 Mg PO PRN BID PRN Vitals/I & O Vital Sign - Last 24 Hours 07/30/16 07/30/16 07/30/16 07/30/16 15:40 15:42 16:00 16:15 Temp 97.1 97.1 Pulse 116 116 114 Resp 39 40 B/P 83/47 Pulse Ox 93 91 O2 Delivery Nasal Cannula Nasal Cannula Nasal Cannula O2 Flow Rate 5.0 4.0 3.0 07/30/16 07/30/16 07/30/16 07/30/16 16:30 16:45 16:45 17:00 Pulse 120 114 114 114 Resp 44 32 B/P 101/56 126/46 126/46 110/42 Pulse Ox 85 88 O2 Delivery Nasal Cannula Nasal Cannula O2 Flow Rate 4.0 4.0 07/30/16 07/30/16 07/30/16 07/30/16 17:00 17:00 17:04 17:15 Temp 96.3 96.3 Pulse 114 114 Resp 30 B/P 110/42 118/44 Pulse Ox 89 O2 Delivery Nasal Cannula Nasal Cannula O2 Flow Rate 4.0 4.0 07/30/16 07/30/16 07/30/16 07/30/16 17:15 17:15 17:30 17:30 Temp 96.3 96.4 96.3 96.4 Pulse 114 110 Resp 34 B/P 118/44 104/40 Pulse Ox 90 O2 Delivery Venturi Mask 07/30/16 07/30/16 07/30/16 07/30/16 17:30 17:34 17:35 17:45 Pulse 110 114 Resp 32 B/P 104/40 118/44 Pulse Ox 91 93 O2 Delivery Venturi Mask Nasal Cannula Venturi Mask O2 Flow Rate 4.0 15.0 07/30/16 07/30/16 07/30/16 07/30/16 17:45 17:45 18:00 18:00 Temp 96.6 96.6 Pulse 114 112 112 Resp 32 32 B/P 118/44 108/40 108/40 Pulse Ox 92 94 O2 Delivery Venturi Mask Venturi Mask 07/30/16 07/30/16 07/30/16 07/30/16 18:00 18:15 18:15 18:30 Temp 96.6 96.8 96.6 96.8 Pulse 114 114 B/P 112/42 118/44 07/30/16 07/30/16 07/30/16 07/30/16 18:30 18:45 18:45 19:00 Temp 97.2 97.5 97.2 97.5 Pulse 118 118 Resp 28 45 B/P 118/44 134/48 Pulse Ox 95 O2 Delivery Venturi Mask Venturi Mask 07/30/16 07/30/16 07/30/16 07/30/16 19:00 19:55 20:00 20:00 Temp 97.5 97.5 Pulse 120 112 Resp 51 B/P 134/48 84/32 Pulse Ox 95 100 O2 Delivery Venturi Mask Ventilator Mechanical Ventilator 07/30/16 07/30/16 07/30/16 07/30/16 20:00 20:30 20:45 21:00 Temp 98.1 99.1 98.1 99.1 Pulse 112 110 Resp 26 26 B/P 84/32 76/31 72/30 94/40 Pulse Ox 95 95 O2 Delivery Ventilator Ventilator 07/30/16 07/30/16 07/30/16 07/30/16 22:00 23:00 23:10 23:30 Temp 99.9 99.1 99.9 99.1 Pulse 114 126 Resp 30 30 B/P 100/46 114/44 145/54 88/44 Pulse Ox 95 95 O2 Delivery Ventilator Ventilator 07/30/16 07/30/16 07/30/16 07/31/16 23:40 23:40 23:59 00:00 Pulse 125 B/P 90/46 131/50 Pulse Ox 94 O2 Delivery Ventilator Mechanical Ventilator 07/31/16 07/31/16 07/31/16 07/31/16 00:00 00:15 01:00 01:42 Temp 99.3 99.1 99.3 99.1 Pulse 125 122 Resp 30 30 B/P 131/50 135/42 123/54 Pulse Ox 96 96 94 O2 Delivery Ventilator Ventilator Ventilator 07/31/16 07/31/16 07/31/16 07/31/16 02:00 02:39 03:00 03:51 Temp 98.9 98.4 98.9 98.4 Pulse 119 122 Resp 30 30 B/P 130/56 96/47 91/46 Pulse Ox 95 96 93 O2 Delivery Ventilator Ventilator Ventilator 07/31/16 07/31/16 07/31/16 07/31/16 04:00 04:00 04:00 05:00 Temp 98.1 98.2 98.1 98.2 Pulse 110 110 111 Resp 30 30 B/P 116/51 116/51 118/45 Pulse Ox 93 96 O2 Delivery Mechanical Ventilator Ventilator Ventilator 07/31/16 07/31/16 07/31/16 07/31/16 05:30 06:00 07:00 07:21 Temp 98.4 99.0 98.4 99.0 Pulse 109 114 Resp 30 30 B/P 105/47 134/52 Pulse Ox 90 94 94 93 O2 Delivery Ventilator Ventilator Ventilator Ventilator 07/31/16 07/31/16 07/31/16 07/31/16 08:00 08:00 08:00 09:00 Temp 99.1 99.3 99.1 99.3 Pulse 108 108 114 Resp 30 30 B/P 86/44 84/44 116/50 Pulse Ox 92 93 O2 Delivery Ventilator Mechanical Ventilator Ventilator 07/31/16 07/31/16 07/31/16 07/31/16 09:30 10:00 11:00 11:27 Temp 99.3 98.8 99.3 98.8 Pulse 110 110 Resp 30 29 B/P 110/48 96/46 Pulse Ox 94 91 93 93 O2 Delivery Ventilator Ventilator Ventilator Ventilator 07/31/16 07/31/16 07/31/16 07/31/16 12:00 12:00 12:00 12:02 Temp 98.4 98.4 Pulse 114 114 Resp 31 B/P 110/48 110/48 Pulse Ox 100 O2 Delivery Mechanical Ventilator Ventilator Ventilator 07/31/16 07/31/16 12:32 13:00 Temp 98.4 98.4 Pulse 112 Resp 32 B/P 112/58 Pulse Ox 93 96 O2 Delivery Ventilator O2 Flow Rate 15.0 Intake and Output 07/30/16 07/30/16 07/31/16 15:00 23:00 07:00 Intake Total 1496 ml Output Total 92 ml 129 ml 437 ml Balance -92 ml -129 ml 1059 ml BENITA LUTZ MD Jul 31, 2016 14:56
--- NOTE | 2016-07-31 15:11 | CARD ---
APPROVED REPORT PROCEDURE NARRATIVE PROCEDURE Patient Name: Cecy Miller Number: [id number] Date of : 1955Patient Status: Admitted Inpatient Attending Doctor: Roderick Cisneros [facility] Number: [id number] PROCEDURE NOTE PROCEDURE Procedure Procedure Note: Procedure insertion of arterial line , swan/scarlett catheter and dialysis catheter Procedure After obtaining consent right and left groins prepped and draped Left groin infiltrated with Xylocaine and dialysis catheter inserted with Seldinger technique. Right groin infiltrated with Xylocaine and femoral arterial line and femoral venous sheath inserted u sing Seldinger technique. Livingston advanced through venous sheath with direct visualization under fluoro all the way to the RA, the n to the RV and on to the PA. All lines were sutured ,dressings applied , patient transferred back to ICU in stable condition. MATT PALACIOS MDFeb 2016 16:27 This was done in [employer] because the pt was not in my box in [employer] until today
[2016-07-31 17:34] LABS: ALBUMIN 2.1 g/dL (3.4-5.0); DIRECT BILIRUBIN 2.8 mg/dL (0.0-0.2); TOTAL PROTEIN 6.1 g/dL (6.4-8.2)
[2016-07-31] MEDS: DOPAMINE 400MG/250ML PREMIX 250 ML IV PRN (20:16)
[2016-07-31] MEDS: DARBEPOETIN ALFA 60 MCG/0.3 ML DISP.SYRIN. SQ SCH (21:09)
[2016-07-31] MEDS: TIGECYCLINE 50 MG in IV NORMAL SALINE 50ML 50 ML IV SCH (21:09)
[2016-07-31 22:10] LABS: HEP B SURFACE ABDY Non Reactive (.)
[2016-08-01] VITALS (25 sets, daily range): BP systolic 73–173; BP diastolic 47–76
[2016-08-01] MEDS: MICAFUNGIN 100 MG in IV DEXTROSE 5% 100 ML IV SCH (00:58)
[2016-08-01] MEDS: MIDAZOLAM PREMIX 100 ML IV PRN ×2 (02:51→14:42)
--- NOTE | 2016-08-01 06:39 | PDOC ---
PULMONARY PROGRESS NOTES Subjective on vent, fio2 80%, peep 5, on levo and dopamin, sedated. Vitals Vital Signs Date Time Temp Pulse Resp B/P Pulse Ox O2 Delivery O2 Flow Rate FiO2 08/01/16 05:40 96 Ventilator 08/01/16 05:00 94 163/75 08/01/16 05:00 98.2 30 98.2 08/01/16 04:00 96.0 Comments ros , discussed w rn, as mentioned as above, other sys otherwise neg HEENT: Other (nc at perrl, nose clear, orally intuvated. ) Lungs: Crackles Cardiovascular: S1, S2 Abdomen: Soft, Non-tender, Other Extremities: Other (edema) Skin: Warm Labs Laboratory Tests Test 07/30/16 06:55 07/30/16 06:58 07/30/16 11:02 07/30/16 13:25 Sodium Level 142mmol/L (136-145) Potassium Level 3.8mmol/L (3.5-5.1) Chloride Level 111mmol/L (98-107) Carbon Dioxide Level 16mmol/L (21-32) Anion Gap 15 (6-14) Blood Urea Nitrogen 32mg/dL (7-20) Creatinine 1.7mg/dL (0.6-1.0) Estimated GFR (Cockcroft-Gault) 37.0 Glucose Level 116mg/dL (70-99) Calcium Level 8.1mg/dL (8.5-10.1) Phosphorus Level 3.9mg/dL (2.6-4.7) White Blood Count 4.0x10^3/uL (4.0-11.0) Red Blood Count 3.49x10^6/uL (3.50-5.40) Hemoglobin 9.3g/dL (12.0-15.5) Hematocrit 28.8% (36.0-47.0) Mean Corpuscular Volume 83fL (79-100) Mean Corpuscular Hemoglobin 27pg (25-35) Mean Corpuscular Hemoglobin Concent 32g/dL (31-37) Red Cell Distribution Width 20.3% (11.5-14.5) Platelet Count 107x10^3/uL (140-400) Neutrophils (%) (Auto) 93% (31-73) Lymphocytes (%) (Auto) 3% (24-48) Monocytes (%) (Auto) 2% (0-9) Eosinophils (%) (Auto) 0% (0-3) Basophils (%) (Auto) 1% (0-3) Neutrophils # (Auto) 3.7x10^3uL (1.8-7.7) Lymphocytes # (Auto) 0.1x10^3/uL (1.0-4.8) Monocytes # (Auto) 0.1x10^3/uL (0.0-1.1) Eosinophils # (Auto) 0.0x10^3/uL (0.0-0.7) Basophils # (Auto) 0.0x10^3/uL (0.0-0.2) O2 Saturation 88% (92-99) Arterial Blood pH 7.23 (7.35-7.45) Arterial Blood pCO2 at Patient Temp 37mmHg (35-46) Arterial Blood pO2 at Patient Temp 65mmHg (65-108) Arterial Blood HCO3 15mmol/L (21-28) Arterial Blood Base Excess -12mmol/L (-3-3) FiO2 28 Lactic Acid Level 3.3mmol/L (0.4-2.0) Test 07/30/16 16:38 07/30/16 19:40 07/31/16 05:10 07/31/16 07:15 Sodium Level 144mmol/L (136-145) 146mmol/L (136-145) Potassium Level 4.0mmol/L (3.5-5.1) 3.7mmol/L (3.5-5.1) Chloride Level 111mmol/L (98-107) 109mmol/L (98-107) Carbon Dioxide Level 17mmol/L (21-32) 20mmol/L (21-32) Anion Gap 16 (6-14) 17 (6-14) Blood Urea Nitrogen 41mg/dL (7-20) 45mg/dL (7-20) Creatinine 2.0mg/dL (0.6-1.0) 2.6mg/dL (0.6-1.0) Estimated GFR (Cockcroft-Gault) 30.6 22.6 Glucose Level 61mg/dL (70-99) 79mg/dL (70-99) Calcium Level 8.0mg/dL (8.5-10.1) 8.0mg/dL (8.5-10.1) Phosphorus Level 4.1mg/dL (2.6-4.7) Albumin 2.1g/dL (3.4-5.0) 2.1g/dL (3.4-5.0) O2 Saturation 99% (92-99) Arterial Blood pH 7.32 (7.35-7.45) Arterial Blood pCO2 at Patient Temp 30mmHg (35-46) Arterial Blood pO2 at Patient Temp 307mmHg (65-108) Arterial Blood HCO3 15mmol/L (21-28) Arterial Blood Base Excess -10mmol/L (-3-3) FiO2 100 White Blood Count 4.6x10^3/uL (4.0-11.0) Red Blood Count 3.36x10^6/uL (3.50-5.40) Hemoglobin 8.6g/dL (12.0-15.5) Hematocrit 26.9% (36.0-47.0) Mean Corpuscular Volume 80fL (79-100) Mean Corpuscular Hemoglobin 26pg (25-35) Mean Corpuscular Hemoglobin Concent 32g/dL (31-37) Red Cell Distribution Width 20.2% (11.5-14.5) Platelet Count 78x10^3/uL (140-400) Neutrophils (%) (Auto) 80% (31-73) Lymphocytes (%) (Auto) 13% (24-48) Monocytes (%) (Auto) 6% (0-9) Eosinophils (%) (Auto) 1% (0-3) Basophils (%) (Auto) 1% (0-3) Neutrophils # (Auto) 3.6x10^3uL (1.8-7.7) Lymphocytes # (Auto) 0.6x10^3/uL (1.0-4.8) Monocytes # (Auto) 0.3x10^3/uL (0.0-1.1) Eosinophils # (Auto) 0.0x10^3/uL (0.0-0.7) Basophils # (Auto) 0.0x10^3/uL (0.0-0.2) Magnesium Level 3.1mg/dL (1.8-2.4) Total Bilirubin 4.0mg/dL (0.2-1.0) Direct Bilirubin 2.8mg/dL (0.0-0.2) Aspartate Amino Transf (AST/SGOT) 171U/L (15-37) Alanine Aminotransferase (ALT/SGPT) 54U/L (14-59) Alkaline Phosphatase 111U/L (46-116) Total Protein 6.1g/dL (6.4-8.2) Hepatitis B Surface Antigen Negative (Negative) Hepatitis B Surface Antibody Non reactive (.) Lactic Acid Level 4.7mmol/L (0.4-2.0) Test 07/31/16 08:00 O2 Saturation 88% (92-99) Arterial Blood pH 7.41 (7.35-7.45) Arterial Blood pCO2 at Patient Temp 30mmHg (35-46) Arterial Blood pO2 at Patient Temp 59mmHg (65-108) Arterial Blood HCO3 19mmol/L (21-28) Arterial Blood Base Excess -5mmol/L (-3-3) FiO2 60 Laboratory Tests Test 07/31/16 07:15 07/31/16 08:00 Lactic Acid Level 4.7mmol/L (0.4-2.0) O2 Saturation 88% (92-99) Arterial Blood pH 7.41 (7.35-7.45) Arterial Blood pCO2 at Patient Temp 30mmHg (35-46) Arterial Blood pO2 at Patient Temp 59mmHg (65-108) Arterial Blood HCO3 19mmol/L (21-28) Arterial Blood Base Excess -5mmol/L (-3-3) FiO2 60 Medications Active Scripts Medications Dose Route/Sig Days Date Category Dilaudid (Hydromorphone Hcl) 4 Mg Tablet 4 Mg PO Q6HRS 06/29/16 Rx Phenazopyridine Hcl 200 Mg Tablet 200 Mg PO PRN TID PRN 06/29/16 Rx FENTANYL 50mcg/hr (Fentanyl) 1 Each Patch.td72 1 Patch TD Q3DAYS 06/29/16 Rx Anaspaz (Hyoscyamine Sulfate) 0.125 Mg Tab.rapdis 0.125 Mg PO Q6HRS PRN 06/29/16 Rx Cefpodoxime Proxetil 200 Mg Tablet 200 Mg PO BID 06/29/16 Rx Sertraline Hcl 50 Mg Tablet 100 Mg PO DAILY 30 05/12/16 Rx Protonix (Pantoprazole Sodium) 40 Mg Tablet.dr 1 Tab PO DAILY 12/27/15 Rx Zinc Oxide 56.7 Gm Oint...g. 1 Sang TP BID 12/18/15 Rx Lidocaine 35.44 Gm Oint...g. 1 Sang TP BID 12/18/15 Rx Ondansetron Odt (Ondansetron) 4 Mg Tab.rapdis 8 Mg PO PRN Q8HRS PRN 07/03/15 Rx Gas-X (Simethicone) 80 Mg Tab.chew 80 Mg PO PRN QID PRN 09/30/14 Rx Lorazepam 0.5 Mg Tablet 0.5 Mg PO PRN BID PRN 11/08/13 Reported Comments NO CHANGE IN INFILTRATES Impression . 1. Acute respiratory failure, multifactorial. 2. Septic shock. 3. Bilateral pulmonary infiltrates compatible with pulmonary edema, possible pneumonia. 4. Fungemia. 5. Chronic enterocutaneous fistula. 6. Metabolic toxic encephalopathy. 7. Acute renal failure. 8. Dtufotdg-yd-kljjly protein malnutrition, present upon admission. 9. Metabolic acidosis. Plan . cont vent support, i personally increased peep to 7, titrate fi02 to keep sat 94 %, abg, reviewed, will decrease rr to 24 abx add solucortef add bronchodilator am abg pcxr NO APPARENT REASON FOR FISTULA, I WOULD EXPECT PLEURAL FLUID. NO RECENT ESOPHAGEAL PROBLEMS WILL CONTINUE THE SAME FOR NOW prognosis poor INCREASE PEEP NEEDED MAY NEED TO INVERSE I:E RATIO ANTIBX PER ID the pt is critically ill, this is cc time 30 min no overlap discussed w rn, rt. GODWIN BAUTISTA MD Aug 01, 2016 06:39
--- NOTE | 2016-08-01 06:41 | PDOC ---
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 SKIN: No rash IV: Right subclavian/Righ groin/ Left groin art line Labs Lab Laboratory Tests Test 07/31/16 07:15 07/31/16 08:00 Lactic Acid Level 4.7mmol/L (0.4-2.0) O2 Saturation 88% (92-99) Arterial Blood pH 7.41 (7.35-7.45) Arterial Blood pCO2 at Patient Temp 30mmHg (35-46) Arterial Blood pO2 at Patient Temp 59mmHg (65-108) Arterial Blood HCO3 19mmol/L (21-28) Arterial Blood Base Excess -5mmol/L (-3-3) FiO2 60 Micro BLOOD CULTURE Preliminary NO GROWTH AFTER 2 DAYS Enterobacter aerogenes 50,000-100,000 colony forming units per mL URINE CULTURE RES 2 Final Enterococcus faecium 50,000-100,000 colony forming units per mL ANTIMICROBIAL SUSCEPTIBILITY Final Comment S = Susceptible; I = Intermediate; R = Resistant P = Positive; N = Negative MICS are expressed in micrograms per mL Antibiotic RSLT#1 RSLT#2 RSLT#3 RSLT#4 Amoxicillin/Clavulanic Acid R Cefazolin R Cefepime R Ceftriaxone R Cefuroxime R Cephalothin R Ciprofloxacin R R Gentamicin S Imipenem R Levofloxacin R R Nitrofurantoin R I Penicillin R Piperacillin R Tetracycline R R Tobramycin S Trimethoprim/Sulfa S Vancomycin S Objective Assessment C Glabrata sepsis - 07/27 - line removed and positive 07/29 Acute resp failure - intubated JULIO C Fever and chills - improving Daily vomit without nausea - better Acute Anemia - s/p PRBCs Urine Enterobacter and Amp res Enterococcus 2/ EC fistula Enterovesicular fistula Abdominal excoriation MDR Enterobacter and enterococcus faecium in urine Plan Plan of Care cont micafungin Repeat Blood cults Will need ECHO Will need Optho eval Getting HD per renal F/u labs in am d/w family ABBY MOTT MD Aug 01, 2016 06:41
[2016-08-01 06:50] LABS: HEMATOCRIT 27.4 % (36.0-47.0); HEMOGLOBIN 8.9 g/dL (12.0-15.5); RED BLOOD COUNT 3.49 x10^6/uL (3.50-5.40); RED CELL DISTRIBUTION WIDTH 19.8 % (11.5-14.5); WHITE BLOOD COUNT 10.7 x10^3/uL (4.0-11.0)
[2016-08-01] MEDS ORDERED: IV NORMAL SALINE 1000ML BAG 1,000 ML IV PRN (06:57)
[2016-08-01] MEDS: FENTANYL STANDARD PCA 30 ML IV PRN ×3 (06:57→23:39)
[2016-08-01] MEDS ORDERED: IPRATRPIUM/ALBUTEROL 0.5/2.5MG 3 ML NEBU. ONE (06:59)
[2016-08-01] MEDS ORDERED: ALBUMIN HUMAN 25% 200 ML IV PRN (07:00)
[2016-08-01] MEDS ORDERED: DIALYSIS PATIENT. MC PRN (07:00)
[2016-08-01] MEDS: IPRATRPIUM/ALBUTEROL 0.5/2.5MG 3 ML NEBU. NEB SCH ×4 (08:00→19:51)
[2016-08-01 08:05] LABS: HCO3 ABG 29 mmol/L (21-28); PCO2 ABG 33 mmHg (35-46); PO2 ABG 69 mmHg (65-108); SAT O2 ABG 94 % (92-99)
[2016-08-01 08:11] LABS: PH ABG 7.56 (7.35-7.45)
[2016-08-01 08:12] LABS: FIO2 ABG 80
[2016-08-01] MEDS: NOREPINEPHRINE VIAL 8 MG in IV NORMAL SALINE 250ML 250 ML IV PRN ×2 (09:15→15:17)
[2016-08-01] MEDS: SODIUM BICARBONATE VIAL 150 MEQ in IV DEXTROSE 5% 1,000 ML IV SCH (09:30)
--- NOTE | 2016-08-01 09:38 | RAD ---
Indication respiratory failure. A single view of the chest was obtained and is compared to a study one day earlier. Bilateral pulmonary infiltrates persist but appear slightly improved. Endotracheal tube is appropriately positioned above the deborah. Right PICC line Stan[place]-Vero catheter nasogastric tube are additionally noted. Significant pleural fluid is not seen. There is no pneumothorax. There is now some volume loss in the left lower lobe not seen previously. This likely reflects atelectasis. A pneumonic focus is not entirely excluded. IMPRESSION: Slight improvement in diffuse pulmonary infiltrates. New volume loss in the left lower lobe likely reflecting a focus of atelectasis. Various support tubes and catheters appear appropriately positioned.
[2016-08-01 10:16] LABS: CREATININE 1.9 mg/dL (0.6-1.0); GFR 32.5
[2016-08-01 10:23] LABS: POTASSIUM 2.9 mmol/L (3.5-5.1)
--- NOTE | 2016-08-01 11:08 | PDOC ---
PROGRESS NOTES Subjective Subjective sedated on ventilator and still on pressors and receiving hemodialysis now. blood pressure better. urine output improved and metabolic acidosis resolved. lab reviewed. Objective Objective Vital Signs Date Time Temp Pulse Resp B/P Pulse Ox O2 Delivery O2 Flow Rate FiO2 08/01/16 10:13 98 Ventilator 08/01/16 10:00 99 119/58 08/01/16 10:00 24 08/01/16 07:00 98.1 98.1 08/01/16 04:00 96.0 Intake and Output 08/01/16 07:00 Intake Total 6195.5 ml Output Total 1945 ml Balance 4250.5 ml Intake Oral 0 ml IV Total 6195.5 ml Output Urine Total 1945 ml Physical Exam Abdomen: Soft Heart: Regular rate, Normal S1, Normal S2 Extremities: Other (1 to 2 plus edema feet) General: Other (sedated on ventilator) HEENT: Atraumatic Lungs: Other (clear anteriorly) Neuro: Other (sedated) Psych/Mental Status: Other (sedated) Skin: No rashes Assessment Assessment Problems Medical Problems:ana glabrata fungemia with severe sepsis and shock acute hypoxic respiratory failure. intubated on ventilator metabolic encephalopathy acute kidney injury due to ATN from sepsis. hemodialysis today. making urine now bilateral lung infiltrates. suspect pneumonia vs ARDS metabolic acidosisresolved thrombocytopenia due to sepsis picc associated fungemia with sepsis and shock 4. Enterocutaneous fistula. 5. Enterovesical fistula. 6. Anemia of chronic disease. 7. Moderately severe protein calorie malnutrition. (1) Abdominal pain Status: Acute (2) Enterocutaneous fistula Status: Acute (3) Sepsis Status: Acute (4) Urinary tract infection Status: Acute (5) UTI (urinary tract infection) Status: Acute Plan Plan of Care hemodialysis today continue ventilator support continue iv micafungin and tygacil replete kcl per nephrology consider d/c iv bicarbonate drip wean pressors if possible consider TPN soon Comment Review of Relevant I have reviewed the following items lucila (where applicable) has been applied. Labs Laboratory Tests Test 07/30/16 13:25 07/30/16 16:38 07/30/16 19:40 07/31/16 05:10 Lactic Acid Level 3.3mmol/L (0.4-2.0) Sodium Level 144mmol/L (136-145) 146mmol/L (136-145) Potassium Level 4.0mmol/L (3.5-5.1) 3.7mmol/L (3.5-5.1) Chloride Level 111mmol/L (98-107) 109mmol/L (98-107) Carbon Dioxide Level 17mmol/L (21-32) 20mmol/L (21-32) Anion Gap 16 (6-14) 17 (6-14) Blood Urea Nitrogen 41mg/dL (7-20) 45mg/dL (7-20) Creatinine 2.0mg/dL (0.6-1.0) 2.6mg/dL (0.6-1.0) Estimated GFR (Cockcroft-Gault) 30.6 22.6 Glucose Level 61mg/dL (70-99) 79mg/dL (70-99) Calcium Level 8.0mg/dL (8.5-10.1) 8.0mg/dL (8.5-10.1) Phosphorus Level 4.1mg/dL (2.6-4.7) Albumin 2.1g/dL (3.4-5.0) 2.1g/dL (3.4-5.0) O2 Saturation 99% (92-99) Arterial Blood pH 7.32 (7.35-7.45) Arterial Blood pCO2 at Patient Temp 30mmHg (35-46) Arterial Blood pO2 at Patient Temp 307mmHg (65-108) Arterial Blood HCO3 15mmol/L (21-28) Arterial Blood Base Excess -10mmol/L (-3-3) FiO2 100 White Blood Count 4.6x10^3/uL (4.0-11.0) Red Blood Count 3.36x10^6/uL (3.50-5.40) Hemoglobin 8.6g/dL (12.0-15.5) Hematocrit 26.9% (36.0-47.0) Mean Corpuscular Volume 80fL (79-100) Mean Corpuscular Hemoglobin 26pg (25-35) Mean Corpuscular Hemoglobin Concent 32g/dL (31-37) Red Cell Distribution Width 20.2% (11.5-14.5) Platelet Count 78x10^3/uL (140-400) Neutrophils (%) (Auto) 80% (31-73) Lymphocytes (%) (Auto) 13% (24-48) Monocytes (%) (Auto) 6% (0-9) Eosinophils (%) (Auto) 1% (0-3) Basophils (%) (Auto) 1% (0-3) Neutrophils # (Auto) 3.6x10^3uL (1.8-7.7) Lymphocytes # (Auto) 0.6x10^3/uL (1.0-4.8) Monocytes # (Auto) 0.3x10^3/uL (0.0-1.1) Eosinophils # (Auto) 0.0x10^3/uL (0.0-0.7) Basophils # (Auto) 0.0x10^3/uL (0.0-0.2) Magnesium Level 3.1mg/dL (1.8-2.4) Total Bilirubin 4.0mg/dL (0.2-1.0) Direct Bilirubin 2.8mg/dL (0.0-0.2) Aspartate Amino Transf (AST/SGOT) 171U/L (15-37) Alanine Aminotransferase (ALT/SGPT) 54U/L (14-59) Alkaline Phosphatase 111U/L (46-116) Total Protein 6.1g/dL (6.4-8.2) Hepatitis B Surface Antigen Negative (Negative) Hepatitis B Surface Antibody Non reactive (.) Test 07/31/16 07:15 07/31/16 08:00 08/01/16 06:20 08/01/16 08:00 Lactic Acid Level 4.7mmol/L (0.4-2.0) O2 Saturation 88% (92-99) 94% (92-99) Arterial Blood pH 7.41 (7.35-7.45) 7.56 (7.35-7.45) Arterial Blood pCO2 at Patient Temp 30mmHg (35-46) 33mmHg (35-46) Arterial Blood pO2 at Patient Temp 59mmHg (65-108) 69mmHg (65-108) Arterial Blood HCO3 19mmol/L (21-28) 29mmol/L (21-28) Arterial Blood Base Excess -5mmol/L (-3-3) 7mmol/L (-3-3) FiO2 60 80 White Blood Count 10.7x10^3/uL (4.0-11.0) Red Blood Count 3.49x10^6/uL (3.50-5.40) Hemoglobin 8.9g/dL (12.0-15.5) Hematocrit 27.4% (36.0-47.0) Mean Corpuscular Volume 79fL (79-100) Mean Corpuscular Hemoglobin 26pg (25-35) Mean Corpuscular Hemoglobin Concent 33g/dL (31-37) Red Cell Distribution Width 19.8% (11.5-14.5) Platelet Count 56x10^3/uL (140-400) Sodium Level 140mmol/L (136-145) Potassium Level 2.9mmol/L (3.5-5.1) Chloride Level 98mmol/L (98-107) Carbon Dioxide Level 30mmol/L (21-32) Anion Gap 12 (6-14) Blood Urea Nitrogen 33mg/dL (7-20) Creatinine 1.9mg/dL (0.6-1.0) Estimated GFR (Cockcroft-Gault) 32.5 Glucose Level 96mg/dL (70-99) Calcium Level 8.0mg/dL (8.5-10.1) Phosphorus Level 3.0mg/dL (2.6-4.7) Magnesium Level 1.9mg/dL (1.8-2.4) Triglycerides Level 155mg/dL (0-150) Laboratory Tests Test 08/01/16 06:20 08/01/16 08:00 White Blood Count 10.7x10^3/uL (4.0-11.0) Red Blood Count 3.49x10^6/uL (3.50-5.40) Hemoglobin 8.9g/dL (12.0-15.5) Hematocrit 27.4% (36.0-47.0) Mean Corpuscular Volume 79fL (79-100) Mean Corpuscular Hemoglobin 26pg (25-35) Mean Corpuscular Hemoglobin Concent 33g/dL (31-37) Red Cell Distribution Width 19.8% (11.5-14.5) Platelet Count 56x10^3/uL (140-400) Sodium Level 140mmol/L (136-145) Potassium Level 2.9mmol/L (3.5-5.1) Chloride Level 98mmol/L (98-107) Carbon Dioxide Level 30mmol/L (21-32) Anion Gap 12 (6-14) Blood Urea Nitrogen 33mg/dL (7-20) Creatinine 1.9mg/dL (0.6-1.0) Estimated GFR (Cockcroft-Gault) 32.5 Glucose Level 96mg/dL (70-99) Calcium Level 8.0mg/dL (8.5-10.1) Phosphorus Level 3.0mg/dL (2.6-4.7) Magnesium Level 1.9mg/dL (1.8-2.4) Triglycerides Level 155mg/dL (0-150) O2 Saturation 94% (92-99) Arterial Blood pH 7.56 (7.35-7.45) Arterial Blood pCO2 at Patient Temp 33mmHg (35-46) Arterial Blood pO2 at Patient Temp 69mmHg (65-108) Arterial Blood HCO3 29mmol/L (21-28) Arterial Blood Base Excess 7mmol/L (-3-3) FiO2 80 Microbiology 07/28/16 Blood Culture - Preliminary, Resulted 07/28/16 Blood Culture Result 1 (ROYA) - Preliminary, Resulted 07/15/16 Urine Culture - Final, Complete 07/15/16 Urine Culture Result 1 (ROYA) - Final, Complete 07/15/16 Urine Culture Result 2 (ROYA) - Final, Complete 07/15/16 Antimicrobic Susceptibility - Final, Complete 07/29/16 Aerobic Culture - Preliminary, Resulted 07/29/16 Aerobic Culture Result 1 (ROYA) - Preliminary, Resulted Medications Current Medications Piperacillin Sod/ Tazobactam Sod/ Sodium Chloride (Zosyn/Iv Sodium Chloride 0.9 % 100ml) 100 ml @ 200 mls/hr 1X ONCE IV Last administered on 07/15/16 22:56; Start 07/15/16 at 22:00; Stop 07/15/16 at 22:29; Status DC Fentanyl Citrate 50 mcg 50 mcg PRN Q15MIN PRN IV PAIN GREATER THAN 3/10 Last administered on 07/16/16 00:30; Start 07/15/16 at 21:45; Stop 07/16/16 at 02:00; Status DC Sodium Chloride 1,000 ml @ 1,000 mls/hr 1X ONCE IV Last administered on 21:59; Start 07/15/16 at 22:00; Stop 07/15/16 at 22:59; Status DC Sodium Chloride (Iv Sodium Chloride 0.9% 500ml Bag) 500 ml @ 500 mls/hr 1X ONCE IV Last administered on 07/15/16 22:00; Start 07/15/16 at 22:00; Stop at 22:59; Status DC Ondansetron HCl (Zofran) 4 mg PRN Q8HRS PRN IV NAUSEA/VOMITING; Start 07/15/16 at 23:30; Stop 07/16/16 at 08:52; Status DC Fentanyl Citrate 50 mcg 50 mcg PRN Q2HR PRN IV SEVERE PAIN Last administered on 07/16/16 08:10; Start 07/15/16 at 23:30; Stop 07/16/16 at 08:52; Status DC Sodium Chloride (Iv Sodium Chloride 0.9% 1000ml Bag) 1,000 ml @ 150 mls/hr Q6H40M IV Last administered on 07/15/16 02:00; Start 07/15/16 at 23:45; Stop 07/16/16 at 08:52; Status DC Acetaminophen (Tylenol) 650 mg PRN Q4HRS PRN PO FEVER; Start 07/15/16 at 23:30; Stop 07/16/16 at 23:29; Status DC Info (Do NOT chart on this placeholder) 1 each PRN DAILY PRN MC NEEDS VERIFICATION; Start 07/16/16 at 03:00; Status Cancel Acetaminophen 650 mg 650 mg PRN Q4HRS PRN PO MILD PAIN / TEMP Last administered on 07/28/16 07:42; Start 07/16/16 at 08:45; Stop 07/29/16 at 08:33 ; Status DC Piperacillin Sod/ Tazobactam Sod 3.375 gm/Sodium Chloride 50 ml @ 100 mls/hr Q6HRS IV Last administered on 07/18/16 05:50; Start 07/16/16 at 10:00; Stop 07/18 at 13:28; Status DC Linezolid (Zyvox Premix) 300 ml @ 300 mls/hr Q12HR IV Last administered on 07/18 08:34; Start 07/16/16 at 10:00; Stop 07/18/16 at 13:28; Status DC Hydromorphone HCl (Dilaudid) 2 mg PRN Q4HRS PRN IV MODERATE PAIN Last administered on 07/28/16 23:33; Start 07/16/16 at 08:45 Hydromorphone HCl (Dilaudid) 4 mg PRN Q4HRS PRN IV SEVERE PAIN Last administered on 07/30/16 09:23; Start 07/16/16 at 08:45; Stop 07/31/16 at 15:01 ; Status DC Pantoprazole Sodium (Protonix) 40 mg DAILYAC PO Last administered on 07/27/16 11:11; Start 07/16/16 at 09:30; Stop 07/29/16 at 08:44; Status DC Hyoscyamine (Anaspaz) 0.125 mg Q6HRS PO Last administered on 07/20/16 05:20; Start 07/16/16 at 12:00; Stop 07/20/16 at 08:58; Status DC Phenazopyridine HCl (Pyridium) 200 mg TID PO Last administered on 07/20/16 08: 25; Start 07/16/16 at 09:30; Stop 07/20/16 at 08:58; Status DC Lorazepam (Ativan) 0.5 mg PRN BID PRN PO ANXIETY / AGITATION Last administered on 07/29/16 02:16; Start 07/16/16 at 08:45; Stop 07/31/16 at 15:01; Status DC Simethicone (Gas-X) 80 mg PRN Q4HRS PRN PO GAS / BLOATING Last administered on 07/24/16 22:30; Start 07/16/16 at 08:45; Stop 07/31/16 at 15:01; Status DC Zolpidem Tartrate 5 mg 5 mg PRN QHS PRN PO INSOMNIA Last administered on 23:14; Start 07/16/16 at 08:45; Stop 07/31/16 at 15:01; Status DC Potassium Chloride/Dextrose/ Sod Cl 1,000 ml @ 80 mls/hr [id number] IV Last administered on 07/16/16 10:54; Start 07/16/16 at 09:30; Stop 07/16/16 at 21:59; Status DC Fluconazole/ Sodium Chloride (Diflucan 200mg/ 100ml Premix) 100 ml @ 100 mls/ hr Q24H IV Last administered on 07/18/16 11:43; Start 07/16/16 at 11:00; Stop at 13:28; Status DC Info 1 each 1 each PRN DAILY PRN MC SEE COMMENTS Last administered on 12:41; Start 07/16/16 at 10:00 Sodium Chloride 220 meq/Sodium Acetate 90 meq/ Potassium Chloride 50 meq/ Potassium Acetate 15 meq/Potassium Phosphate 10 mmol/ Magnesium Sulfate 50 meq/ Calcium Gluconate 6 meq/ Multivitamins/ Minerals 10 ml/ Chromium/Copper/ Manganese/Seleni/ Zn 1 ml/Total Parenteral Nutrition/Amino Acids/Dextro... 1, 920 ml @ 80 mls/hr TPN CONT IV ; Start 07/16/16 at 22:00; Stop 07/16/16 at 22:00 ; Status DC Sodium Chloride/ Sodium Acetate/ Potassium Chloride/ Potassium Acetate/ Potassium Phosphate/ Magnesium Sulfate/ Calcium Gluconate/ Multivitamins/ Minerals/Chromium/ Copper/Manganese/ Seleni/Zn/Total Parenteral Nutrition/Amino Acids/Dextrose/ Fat Emulsion Intravenous (Sodium Chlori... 1,820 ml @ 75.833 mls/ hr TPN CONT IV Last administered on 07/16/16 21:03; Start 07/16/16 at 22: 00; Stop 07/17/16 at 21:59; Status DC Ondansetron HCl (Zofran) 4 mg PRN Q6HRS PRN IV NAUSEA/VOMITING Last administered on 07/21/16 08:48; Start 07/16/16 at 17:15; Stop 07/31/16 at 15:01; Status DC Diphenhydramine HCl (Benadryl) 25 mg PRN Q6HRS PRN PO ITCHING Last administered on 07/25/16 23:38; Start 07/16/16 at 17:45; Stop 07/31/16 at 15:01 ; Status DC Lidocaine (Xylocaine) 1 sang BID TP Last administered on 07/31/16 21:12; Start 07/17/16 at 09:00 Zinc Oxide 1 sang 1 sang BID TP Last administered on 07/31/16 21:12; Start at 09:30 Sodium Chloride/ Sodium Acetate/ Potassium Chloride/ Potassium Acetate/ Potassium Phosphate/ Magnesium Sulfate/ Calcium Gluconate/ Multivitamins/ Minerals/Chromium/ Copper/Manganese/ Seleni/Zn/Total Parenteral Nutrition/Amino Acids/Dextrose/ Fat Emulsion Intravenous (Sodium Chlori... 1,920 ml @ 80 mls/ hr TPN CONT IV Last administered on 07/17/16 22:13; Start 07/17/16 at 22:00; Stop 07/18/16 at 21:59; Status DC Furosemide 40 mg 40 mg 1X ONCE IVP Last administered on 07/18/16 11:43; Start 07/18/16 at 11:00; Stop 07/18/16 at 11:07; Status DC Sodium Chloride 220 meq/Sodium Acetate 90 meq/ Potassium Chloride 50 meq/ Potassium Acetate 15 meq/Potassium Phosphate 10 mmol/ Magnesium Sulfate 50 meq/ Calcium Gluconate 3 meq/ Multivitamins/ Minerals 10 ml/ Chromium/Copper/ Manganese/Seleni/ Zn 1 ml/Total Parenteral Nutrition/Amino Acids/Dextro... 1, 920 ml @ 80 mls/hr TPN CONT IV Last administered on 07/19/16 00:03; Start 07/18/16 at 22:00; Stop 07/19/16 at 21:59; Status DC Meropenem 1 gm/ Sodium Chloride 100 ml @ 200 mls/hr Q8HRS IV Last administered on 07/20/16 05:21; Start 07/18/16 at 14:00; Stop 07/20/16 at 11:25; Status DC Micafungin Sodium 100 mg/Dextrose 100 ml @ 100 mls/hr Q24H IV Last administered on 07/19/16 15:05; Start 07/18/16 at 14:00; Stop 07/20/16 at 11:25; Status DC Daptomycin/Sodium Chloride (Cubicin/Iv Sodium Chloride 0.9% 50ml) 50 ml @ 100 mls/hr Q24H IV Last administered on 07/19/16 16:56; Start 07/18/16 at 15:00; Stop 07/20/16 at 11:25; Status DC Alteplase, Recombinant (Cathflo) 2 mg 1X ONCE INT CAT Last administered on 07/19 06:24; Start 07/19/16 at 07:00; Stop 07/19/16 at 07:01; Status DC Gentamicin Sulfate 1 each 1 each PRN DAILY PRN MC SEE COMMENTS Last administered on 07/25/16 15:31; Start 07/19/16 at 12:15; Stop 07/25/16 at 16:14 ; Status DC Gentamicin Sulfate/Sodium Chloride (Iv Sodium Chloride 0.9% 100ml) 106.75 ml @ 106.75 mls/hr Q24H IV Last administered on 07/25/16 15:31; Start 07/19/16 at 13 :00; Stop 07/25/16 at 16:12; Status DC Gentamicin Sulfate 1 each 1 each 1X ONCE MC Last administered on 07/19/16 23: 00; Start 07/19/16 at 23:00; Stop 07/19/16 at 23:01; Status DC Sodium Chloride/ Sodium Acetate/ Potassium Chloride/ Potassium Acetate/ Potassium Phosphate/ Magnesium Sulfate/ Calcium Gluconate/ Multivitamins/ Minerals/Chromium/ Copper/Manganese/ Seleni/Zn/Total Parenteral Nutrition/Amino Acids/Dextrose/ Fat Emulsion Intravenous (Sodium Chlori... 1,920 ml @ 80 mls/ hr TPN CONT IV Last administered on 07/19/16 20:51; Start 07/19/16 at 22:00; Stop 07/20/16 at 21:59; Status DC Hyoscyamine (Anaspaz) 0.125 mg PRN Q6HRS PRN PO BLADDER SPASM; Start 07/20/16 at 09:00; Stop 07/31/16 at 15:01; Status DC Phenazopyridine HCl 200 mg 200 mg PRN TID PRN PO BLADDER SPASM Last administered on 07/21/16 20:14; Start 07/20/16 at 09:00; Stop 07/31/16 at 15:01; Status DC Linezolid 300 ml @ 300 mls/hr Q12HR IV Last administered on 07/25/16 09:02; Start 07/20/16 at 12:00; Stop 07/25/16 at 16:12; Status DC Sodium Chloride 220 meq/Sodium Acetate 90 meq/ Potassium Chloride 50 meq/ Potassium Acetate 15 meq/Potassium Phosphate 10 mmol/ Magnesium Sulfate 50 meq/ Calcium Gluconate 3 meq/ Multivitamins/ Minerals 10 ml/ Chromium/Copper/ Manganese/Seleni/ Zn 1 ml/Total Parenteral Nutrition/Amino Acids/Dextro... 1, 920 ml @ 80 mls/hr TPN CONT IV Last administered on 07/20/16 21:30; Start 07/20/16 at 22:00; Stop 07/21/16 at 21:59; Status DC Sodium Chloride/ Sodium Acetate/ Potassium Chloride/ Potassium Acetate/ Potassium Phosphate/ Magnesium Sulfate/ Multivitamins/ Minerals/Chromium/ Copper /Manganese/ Seleni/Zn/Total Parenteral Nutrition/Amino Acids/Dextrose/ Fat Emulsion Intravenous (Sodium Chloride/ Potass... 1,920 ml @ 80 mls/hr TPN CONT IV Last administered on 07/21/16 22:05; Start 07/21/16 at 22:00; Stop at 21:59; Status DC Alteplase, Recombinant 2 mg 2 mg PRN DAILY PRN INT CAT INFLAMMATION Last administered on 07/27/16 11:31; Start 07/21/16 at 15:00 Sodium Chloride 220 meq/Sodium Acetate 90 meq/ Potassium Chloride 50 meq/ Potassium Acetate 15 meq/Potassium Phosphate 10 mmol/ Magnesium Sulfate 50 meq/ Multivitamins/ Minerals 10 ml/ Chromium/Copper/ Manganese/Seleni/ Zn 1 ml/Total Parenteral Nutrition/Amino Acids/Dextrose/ Fat Emuls... 1,920 ml @ 80 mls/hr TPN CONT IV Last administered on 07/22/16 20:53; Start 07/22/16 at 22:00; Stop 07/23/16 at 21:59; Status DC Sodium Chloride/ Sodium Acetate/ Potassium Chloride/ Potassium Acetate/ Potassium Phosphate/ Magnesium Sulfate/ Multivitamins/ Minerals/Chromium/ Copper /Manganese/ Seleni/Zn/Total Parenteral Nutrition/Amino Acids/Dextrose/ Fat Emulsion Intravenous (Sodium Chloride/ Potass... 1,920 ml @ 80 mls/hr TPN CONT IV Last administered on 07/23/16 21:16; Start 07/23/16 at 22:00; Stop 07/24 at 21:59; Status DC Gentamicin Sulfate 1 each 1 each 1X ONCE MC ; Start 07/23/16 at 22:00; Stop 07/23 at 22:01; Status Cancel Sodium Chloride/ Sodium Acetate/ Potassium Chloride/ Potassium Acetate/ Potassium Phosphate/ Magnesium Sulfate/ Multivitamins/ Minerals/Chromium/ Copper /Manganese/ Seleni/Zn/Total Parenteral Nutrition/Amino Acids/Dextrose/ Fat Emulsion Intravenous (Sodium Chloride/ Potass... 1,920 ml @ 80 mls/hr TPN CONT IV Last administered on 07/24/16 21:15; Start 07/24/16 at 22:00; Stop 04/30 at 21:59; Status DC Gentamicin Sulfate 1 each 1X ONCE MC ; Start 07/25/16 at 12:30; Stop 07/25/16 at 12:31; Status Cancel Amlodipine Besylate 5 mg 5 mg DAILY PO Last administered on 07/27/16 11:12; Start 07/25/16 at 12:00; Stop 07/29/16 at 08:44; Status DC Sodium Chloride 220 meq/Sodium Acetate 90 meq/ Potassium Chloride 30 meq/ Potassium Acetate 15 meq/Potassium Phosphate 10 mmol/ Magnesium Sulfate 50 meq/ Multivitamins/ Minerals 10 ml/ Chromium/Copper/ Manganese/Seleni/ Zn 1 ml/Total Parenteral Nutrition/Amino Acids/Dextrose/ Fat Emuls... 1,920 ml @ 80 mls/hr TPN CONT IV Last administered on 07/25/16 22:25; Start 07/25/16 at 22:00; Stop 07/26/16 at 21:59; Status DC Sodium Chloride/ Sodium Acetate/ Potassium Chloride/ Potassium Acetate/ Potassium Phosphate/ Magnesium Sulfate/ Multivitamins/ Minerals/Chromium/ Copper /Manganese/ Seleni/Zn/Total Parenteral Nutrition/Amino Acids/Dextrose/ Fat Emulsion Intravenous (Sodium Chloride/ Potass... 1,920 ml @ 80 mls/hr TPN CONT IV Last administered on 07/26/16 23:16; Start 07/26/16 at 22:00; Stop at 21:59; Status DC Furosemide 20 mg 20 mg 1X ONCE IVP Last administered on 07/27/16 11:31; Start 07/27/16 at 09:00; Stop 07/27/16 at 09:01; Status DC Daptomycin 340 mg/ Sodium Chloride 50 ml @ 100 mls/hr Q24H IV Last administered on 07/29/16 15:05; Start 07/27/16 at 13:00; Stop 07/30/16 at 07:25 ; Status DC Piperacillin Sod/ Tazobactam Sod 3.375 gm/Sodium Chloride 50 ml @ 100 mls/hr Q6HRS IV Last administered on 07/30/16 05:30; Start 07/27/16 at 12:30; Stop at 07:25; Status DC Fluconazole/ Sodium Chloride 100 ml @ 100 mls/hr Q24H IV Last administered on 07/28/16 13:32; Start 07/27/16 at 13:00; Stop 07/29/16 at 00:53; Status DC Sodium Chloride 1,000 ml @ 1,000 mls/hr 1X ONCE IV Last administered on 12:34; Start 07/27/16 at 12:30; Stop 07/27/16 at 13:29; Status DC Sodium Chloride 220 meq/Sodium Acetate 90 meq/ Potassium Chloride 30 meq/ Potassium Acetate 15 meq/Potassium Phosphate 10 mmol/ Magnesium Sulfate 45 meq/ Multivitamins/ Minerals 10 ml/ Chromium/Copper/ Manganese/Seleni/ Zn 1 ml/Total Parenteral Nutrition/Amino Acids/Dextrose/ Fat Emuls... 1,920 ml @ 80 mls/hr TPN CONT IV Last administered on 07/27/16 22:38; Start 07/27/16 at 22:00; Stop 07/28/16 at 21:59; Status DC Sodium Chloride (Iv Sodium Chloride 0.9% 1000ml Bag) 1,000 ml @ 45 mls/hr [id number] IV Last administered on 07/28/16 03:24; Start 07/27/16 at 17:00; Stop 07/28/16 at 10:27; Status DC Acetaminophen 650 mg 650 mg PRN Q6HRS PRN GA fever Last administered on 03:57; Start 07/27/16 at 16:30; Stop 07/29/16 at 08:33; Status DC Sodium Chloride 1,000 ml @ 427.5 mls/ hr Q2H21M IV Last administered on 19:30; Start 07/27/16 at 19:30; Stop 07/27/16 at 23:30; Status DC Sodium Chloride 220 meq/Sodium Acetate 90 meq/ Potassium Chloride 30 meq/ Potassium Acetate 15 meq/Potassium Phosphate 10 mmol/ Magnesium Sulfate 45 meq/ Multivitamins/ Minerals 10 ml/ Chromium/Copper/ Manganese/Seleni/ Zn 1 ml/Total Parenteral Nutrition/Amino Acids/Dextrose/ Fat Emuls... 1,920 ml @ 80 mls/hr TPN CONT IV Last administered on 07/28/16 21:43; Start 07/28/16 at 22:00; Stop 07/29/16 at 21:59; Status DC Micafungin Sodium/ Dextrose (Mycamine) 100 ml @ 100 mls/hr Q24H IV Last administered on 08/01/16 00:58; Start 07/29/16 at 01:00 Lorazepam (Ativan) 0.05 mg PRN Q4HRS PRN IV ANXIETY / AGITATION; Start at 02:30; Stop 07/29/16 at 02:48; Status DC Lorazepam (Ativan) 0.5 mg PRN Q4HRS PRN IV ANXIETY / AGITATION Last administered on 07/29/16 03:18; Start 07/29/16 at 03:00 Acetaminophen (Tylenol) 650 mg PRN Q4HRS PRN GA MILD PAIN / TEMP; Start at 08:30 Ketorolac Tromethamine (Toradol) 30 mg PRN Q6HRS PRN IV PAIN/FEVER Last administered on 07/30/16 00:50; Start 07/29/16 at 08:30; Stop 07/30/16 at 13:01 ; Status DC Pantoprazole Sodium 40 mg 40 mg DAILYAC IVP Last administered on 07/31/16 09: 20; Start 07/29/16 at 09:00 Sodium Chloride 1,000 ml @ 45 mls/hr [id number] IV Last administered on 09:17; Start 07/29/16 at 08:45; Stop 07/31/16 at 15:01; Status DC Sodium Chloride/ Sodium Acetate/ Potassium Chloride/ Potassium Acetate/ Potassium Phosphate/ Magnesium Sulfate/ Multivitamins/ Minerals/Chromium/ Copper /Manganese/ Seleni/Zn/Total Parenteral Nutrition/Amino Acids/Dextrose/ Fat Emulsion Intravenous (Sodium Chloride/ Potass... 1,920 ml @ 80 mls/hr TPN CONT IV Last administered on 07/29/16 22:06; Start 07/29/16 at 22:00; Stop at 21:59; Status DC Lidocaine/Sodium Bicarbonate 20 ml 20 ml STK-MED ONCE IJ ; Start 07/29/16 at 13: 13; Stop 07/29/16 at 13:14; Status DC Heparin Sodium/ Sodium Chloride 500 ml @ As Directed STK-MED ONCE .ROUTE ; Start 07/29/16 at 13:13; Stop 07/29/16 at 13:14; Status DC Lidocaine/ Epinephrine (Xylocaine 1%-Epi 1:100,000) 20 ml STK-MED ONCE .ROUTE ; Start 07/29/16 at 13:22; Stop 07/29/16 at 13:23; Status DC Midazolam HCl (Versed) 5 mg STK-MED ONCE .ROUTE ; Start 07/29/16 at 13:32; Stop 07/29/16 at 13:33; Status DC Fentanyl Citrate (Fentanyl 5ml Vial) 250 mcg STK-MED ONCE .ROUTE ; Start at 13:32; Stop 07/29/16 at 13:33; Status DC Heparin Sodium/ Sodium Chloride 1,000 unit 1X ONCE IART Last administered on 13:45; Start 07/29/16 at 13:45; Stop 07/29/16 at 13:48; Status DC Midazolam HCl (Versed) 5 mg 1X ONCE IV Last administered on 07/29/16 13:45; Start 07/29/16 at 13:45; Stop 07/29/16 at 13:48; Status DC Fentanyl Citrate (Fentanyl 5ml Vial) 250 mcg 1X ONCE IV Last administered on 13:45; Start 07/29/16 at 13:45; Stop 07/29/16 at 13:48; Status DC Lidocaine/ Epinephrine 20 ml 20 ml 1X ONCE IJ Last administered on 07/29/16 13:45; Start 07/29/16 at 13:45; Stop 07/29/16 at 13:48; Status DC Sodium Chloride 220 meq/Sodium Acetate 90 meq/ Potassium Chloride 15 meq/ Potassium Acetate 30 meq/Potassium Phosphate 10 mmol/ Magnesium Sulfate 45 meq/ Multivitamins/ Minerals 10 ml/ Chromium/Copper/ Manganese/Seleni/ Zn 1 ml/Total Parenteral Nutrition/Amino Acids/Dextrose/ Fat Emuls... 1,920 ml @ 80 mls/hr TPN CONT IV ; Start 07/30/16 at 22:00; Stop 07/31/16 at 21:59; Status DC Norepinephrine Bitartrate 8 mg/ Sodium Chloride 258 ml @ 1.93 mls/hr 1X ONCE IV Last administered on 07/30/16 11:17; Start 07/30/16 at 11:15; Stop at 15:43; Status DC Norepinephrine Bitartrate/Sodium Chloride (Levophed Vial/ Iv Sodium Chloride 0.9 % 250ml) 258 ml @ 0 mls/hr CONT PRN IV SEE I/O RECORD Last administered on 08/01 09:15; Start 07/30/16 at 11:15 Furosemide 60 mg 60 mg 1X ONCE IVP Last administered on 07/30/16 11:14; Start 07/30/16 at 11:15; Stop 07/30/16 at 11:16; Status DC Sodium Chloride 500 ml @ 500 mls/hr Q1H IV Last administered on 07/30/16 17: 04; Start 07/30/16 at 14:30; Stop 07/30/16 at 15:29; Status DC Albumin Human 100 ml @ 100 mls/hr Q8HRS IV Last administered on 07/31/16 05: 37; Start 07/30/16 at 14:30; Stop 07/31/16 at 06:59; Status DC Furosemide/Sodium Chloride (Lasix Drip/Iv Sodium Chloride 0.9% 100ml) 100 ml @ 0 mls/hr CONT PRN IV SEE I/O RECORD Last administered on 07/31/16 03:17; Start 07/30/16 at 14:30 Ondansetron HCl (Zofran) 8 mg PRN Q8HRS PRN IV NAUSEA/VOMITING Last administered on 07/30/16 14:38; Start 07/30/16 at 14:30 Sodium Bicarbonate 50 meq 50 meq 1X ONCE IV Last administered on 07/30/16 14: 43; Start 07/30/16 at 14:30; Stop 07/30/16 at 14:31; Status DC Heparin Sodium/ Sodium Chloride 500 ml @ As Directed STK-MED ONCE .ROUTE ; Start 07/30/16 at 14:49; Stop 07/30/16 at 14:50; Status DC Lidocaine HCl 20 ml STK-MED ONCE .ROUTE ; Start 07/30/16 at 14:49; Stop at 14:50; Status DC Midazolam HCl (Versed) 2 mg STK-MED ONCE .ROUTE ; Start 07/30/16 at 15:19; Stop 07/30/16 at 15:20; Status DC Heparin Sodium/ Sodium Chloride 1,000 unit 1X ONCE IART Last administered on 15:44; Start 07/30/16 at 15:45; Stop 07/30/16 at 15:46; Status DC Midazolam HCl (Versed) 1.5 mg 1X ONCE IV Last administered on 07/30/16 15:44 ; Start 07/30/16 at 15:45; Stop 07/30/16 at 15:46; Status DC Lidocaine HCl 20 ml 1X ONCE IJ Last administered on 07/30/16 15:44; Start at 15:45; Stop 07/30/16 at 15:46; Status DC Heparin Sodium (Porcine) 52540 unit 10,000 unit STK-MED ONCE .ROUTE ; Start at 15:54; Stop 07/30/16 at 15:55; Status DC Fentanyl Citrate 30 ml @ 0 mls/hr CONT PRN PRN IV PROTOCOL Last administered on 08/01/16 06:57; Start 07/30/16 at 16:45 Sodium Bicarbonate/ Dextrose 1,150 ml @ 125 mls/hr 1X ONCE IV Last administered on 07/30/16 18:34; Start 07/30/16 at 17:30; Stop 07/31/16 at 02:41 ; Status DC Succinylcholine Chloride 200 mg 200 mg STK-MED ONCE .ROUTE ; Start 07/30/16 at 19:47; Stop 07/30/16 at 19:48; Status DC Propofol 100 ml @ As Directed STK-MED ONCE IV ; Start 07/30/16 at 19:48; Stop 07/30/16 at 19:49; Status DC Midazolam HCl (Versed 100mg/ 100ml Premix) 100 ml @ 0 mls/hr CONT PRN IV SEE I/ O RECORD Last administered on 08/01/16 02:51; Start 07/30/16 at 21:15 Sodium Bicarbonate 50 meq 50 meq 1X ONCE IV Last administered on 07/30/16 22: 15; Start 07/30/16 at 22:30; Stop 07/30/16 at 22:31; Status DC Dopamine HCl/ Dextrose 250 ml @ 11.513 mls/ hr CONT PRN IV SEE I/O RECORD Last administered on 07/31/16 20:16; Start 07/30/16 at 22:15 Sodium Bicarbonate/ Dextrose 1,150 ml @ 125 mls/hr Q9H12M IV Last administered on 07/31/16 22:26; Start 07/31/16 at 03:00 Propofol (Diprivan) 1,000 mg STK-MED ONCE IV ; Start 07/30/16 at 20:00; Stop at 08:16; Status DC Succinylcholine Chloride 200 mg 200 mg STK-MED ONCE .ROUTE ; Start 07/30/16 at 20:00; Stop 07/31/16 at 08:16; Status DC Tigecycline 50 mg/ Sodium Chloride 50 ml @ 100 mls/hr Q12HR IV Last administered on 07/31/16 21:09; Start 07/31/16 at 21:00 Tigecycline/ Sodium Chloride (Tygacil/Iv Sodium Chloride 0.9% 100ml) 100 ml @ 200 mls/hr 1X ONCE IV Last administered on 07/31/16 09:22; Start 07/31/16 at 09:00; Stop 07/31/16 at 09:29; Status DC Darbepoetin Sarbjit 60 mcg 60 mcg WEEKLYHS SQ Last administered on 07/31/16 21:09 ; Start 07/31/16 at 21:00 Albumin Human 100 ml @ 100 mls/hr 1X ONCE IV Last administered on 07/31/16 11:40; Start 07/31/16 at 11:15; Stop 07/31/16 at 12:14; Status DC Albumin Human 100 ml @ 100 mls/hr 1X ONCE IV Last administered on 07/31/16 12:03; Start 07/31/16 at 11:15; Stop 07/31/16 at 12:14; Status DC Sodium Chloride (Iv Sodium Chloride 0.9% 1000ml Bag) 1,000 ml @ 1,000 mls/hr Q1H PRN IV hypotension; Start 07/31/16 at 11:33; Stop 07/31/16 at 17:32; Status DC Info (PHARMACY MONITORING -- do not chart) 1 each PRN DAILY PRN MC SEE COMMENTS ; Start 07/31/16 at 11:45 Info (PHARMACY MONITORING -- do not chart) 1 each PRN DAILY PRN MC SEE COMMENTS ; Start 07/31/16 at 11:45; Status UNV Hydrocortisone Sodium Succinate (Solu-Cortef) 100 mg Q8HRS IV ; Start 08/01/16 at 07:00 Albuterol/ Ipratropium (Duoneb) 3 ml RTQID NEB ; Start 08/01/16 at 08:00 Albuterol/ Ipratropium 3 ml 3 ml STK-MED ONCE .ROUTE Last administered on t 07:34; Start 08/01/16 at 06:59; Stop 08/01/16 at 07:00; Status DC Sodium Chloride 1,000 ml @ 1,000 mls/hr Q1H PRN IV hypotension; Start 08/01/16 at 06:57; Stop 08/01/16 at 12:56 Albumin Human (Albuminar) 200 ml @ 200 mls/hr 1X PRN PRN IV Hypotension; Start 08/01/16 at 07:00; Stop 08/01/16 at 12:59 Info (PHARMACY MONITORING -- do not chart) 1 each PRN DAILY PRN MC SEE COMMENTS ; Start 08/01/16 at 07:00; Status UNV Active Scripts Active Dilaudid (Hydromorphone Hcl) 4 Mg Tablet 4 Mg PO Q6HRS Phenazopyridine Hcl 200 Mg Tablet 200 Mg PO PRN TID PRN FENTANYL 50mcg/hr (Fentanyl) 1 Each Patch.td72 1 Patch TD Q3DAYS Anaspaz (Hyoscyamine Sulfate) 0.125 Mg Tab.rapdis 0.125 Mg PO Q6HRS PRN Cefpodoxime Proxetil 200 Mg Tablet 200 Mg PO BID Sertraline Hcl 50 Mg Tablet 100 Mg PO DAILY 30 Days Protonix (Pantoprazole Sodium) 40 Mg Tablet.dr 1 Tab PO DAILY Zinc Oxide 56.7 Gm Oint...g. 1 Sang TP BID Lidocaine 35.44 Gm Oint...g. 1 Sang TP BID Ondansetron Odt (Ondansetron) 4 Mg Tab.rapdis 8 Mg PO PRN Q8HRS PRN Gas-X (Simethicone) 80 Mg Tab.chew 80 Mg PO PRN QID PRN Reported Lorazepam 0.5 Mg Tablet 0.5 Mg PO PRN BID PRN Vitals/I & O Vital Sign - Last 24 Hours 07/31/16 07/31/16 07/31/16 07/31/16 11:27 12:00 12:00 12:00 Temp 98.4 98.4 Pulse 114 114 Resp 31 B/P 110/48 110/48 Pulse Ox 93 100 O2 Delivery Ventilator Mechanical Ventilator Ventilator 07/31/16 07/31/16 07/31/16 07/31/16 12:02 12:32 13:00 13:40 Temp 98.4 98.4 Pulse 112 Resp 32 B/P 112/58 Pulse Ox 93 96 91 O2 Delivery Ventilator Ventilator Ventilator O2 Flow Rate 15.0 07/31/16 07/31/16 07/31/16 07/31/16 14:00 15:00 15:52 16:00 Temp 99.0 99.5 99.0 99.5 Pulse 114 118 Resp 30 30 B/P 138/64 130/60 Pulse Ox 96 93 95 O2 Delivery Ventilator Ventilator Ventilator Mechanical Ventilator 07/31/16 07/31/16 07/31/16 07/31/16 16:00 16:00 17:00 18:00 Temp 99.7 100.2 100.0 99.7 100.2 100.0 Pulse 114 114 114 116 Resp 30 24 29 B/P 150/72 150/72 120/58 132/64 Pulse Ox 97 97 95 O2 Delivery Ventilator Ventilator Ventilator 07/31/16 07/31/16 07/31/16 07/31/16 18:15 19:00 19:32 20:00 Temp 100.0 100.0 Pulse 110 110 Resp 30 B/P 92/47 130/61 Pulse Ox 95 92 95 O2 Delivery Ventilator Ventilator Ventilator 07/31/16 07/31/16 07/31/16 07/31/16 20:00 20:00 21:00 21:00 Temp 99.9 99.9 Pulse 110 111 111 Resp 30 30 B/P 130/61 96/49 96/49 Pulse Ox 96 94 O2 Delivery Mechanical Ventilator 2/17 2/17/17 2//17 2//17 21:40 22:00 22:00 23:00 Pulse 109 109 106 Resp 30 B/P 104/50 101/50 102/49 Pulse Ox 93 93 O2 Delivery Ventilator Ventilator 217/17 2/17/17 2/18/17 2 23:00 23:34 00:00 00:00 Temp 99.9 99.9 Pulse 106 107 Resp 30 B/P 102/49 109/54 Pulse Ox 95 92 O2 Delivery Ventilator Ventilator Mechanical Ventilator 18/17 2/18/17 2/18/17 2 00:01 01:00 01:00 01:30 Temp 100.0 100.0 100.0 100.0 Pulse 108 113 108 Resp 30 30 B/P 116/56 125/61 126/62 Pulse Ox 93 93 94 O2 Delivery Ventilator Ventilator Ventilator 218/17 2/18/17 2/18/17 2 02:00 02:00 03:00 03:00 Temp 99.5 99.5 99.5 99.5 Pulse 101 96 104 104 Resp 30 30 B/P 164/73 173/76 143/63 117/59 Pulse Ox 93 95 O2 Delivery Ventilator Ventilator 18/17 2/18/17 2/18/17 217 03:45 04:00 04:00 04:00 Temp 98.8 98.8 Pulse 102 100 Resp 30 B/P 131/62 138/66 Pulse Ox 92 92 O2 Delivery Ventilator Ventilator Mechanical Ventilator O2 Flow Rate 96.0 08/01/17 2/18/17 2/18/17 2/18/17 05:00 05:00 05:40 06:00 Temp 98.2 98.2 98.2 98.2 Pulse 99 94 98 Resp 30 30 B/P 159/71 163/75 140/62 Pulse Ox 96 96 96 O2 Delivery Ventilator Ventilator Ventilator 218/17 2/18/17 2/18/17 2/18/17 06:00 07:00 07:00 07:35 Temp 98.1 98.1 Pulse 99 92 92 Resp 30 B/P 143/62 150/66 150/66 Pulse Ox 99 97 O2 Delivery Ventilator Ventilator 218/17 2/18/17 2/18/17 2/18/17 08:00 08:00 09:00 09:00 Pulse 94 94 92 92 Resp 30 24 B/P 154/64 154/64 102/52 102/52 Pulse Ox 95 98 08/01/16 08/01/16 08/01/16 10:00 10:00 10:13 Pulse 99 99 Resp 24 B/P 119/58 119/58 Pulse Ox 98 98 O2 Delivery Ventilator Intake and Output 07/31/16 07/31/16 08/01/16 15:00 23:00 07:00 Intake Total 100 ml 6095.5 ml Output Total 610 ml 705 ml 630 ml Balance -610 ml -605 ml 5465.5 ml BENITA LUTZ MD Aug 01, 2016 11:08
[2016-08-01] MEDS: HYDROCORTISONE SOD SUCC/PF 100 MG/2 ML VIAL. IV SCH ×3 (12:18→21:55)
[2016-08-01] MEDS: ZINC OXIDE 20% TOPICAL OINTMENT 28GM TUBE. TP SCH ×2 (12:19→20:57)
[2016-08-01] MEDS: PANTOPRAZOLE IV PUSH 40 MG VIAL. IVP SCH (12:19)
[2016-08-01] MEDS: TIGECYCLINE 50 MG in IV NORMAL SALINE 50ML 50 ML IV SCH ×2 (12:19→20:57)
[2016-08-01] MEDS: LIDOCAINE 5% TOPICAL OINTMENT 35GM TUBE. TP SCH ×2 (12:19→20:57)
--- NOTE | 2016-08-01 13:28 | PDOC ---
SUBJECTIVE ROS JULIO C/ ATN OBJECTIVE Vital Signs Vital Signs Date Time Temp Pulse Resp B/P Pulse Ox O2 Delivery O2 Flow Rate FiO2 08/01/16 12:01 96 Ventilator 08/01/16 10:00 99 119/58 08/01/16 10:00 24 08/01/16 07:00 98.1 98.1 08/01/16 04:00 96.0 I & 0 Intake and Output 08/01/16 07:00 Intake Total 6195.5 ml Output Total 1945 ml Balance 4250.5 ml Intake Oral 0 ml IV Total 6195.5 ml Output Urine Total 1945 ml PHYSICAL EXAM Physical Exam GEN: SEdated and intubated, In no distress EYES: Vision Unchanged, Conjunctiva Normal EN: No EN Drainage, Mucous Membranes moist NECK: + JVD, + JVP, Supple, no Thyromegaly CVS: S1S2, ? Murmur, No Gallop, No Rub,+2 Edema RESP: no Rales, no Rhonchi,no Acc. 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 pH with HD alone HypoTN: Pressors for now Low K - suspect due to Hydrocort - watch on TPN, replace as needed. Off of LAsix currenlty Edema - Fluid removal was difficult on HD due to tenous Hemodynamix and so may need CRRT Resp Fialurie - CXR with CHF, ? ARDS/ Pulm edema - Uf as nicole on HD on CRRT Met Acidosis with ^ Lactate - suspect causative - reassess for CRRT if unable to maintain S. pH with daily HD alone - watch off of Bicarb gtt Discussed Plan of Care with RN at bedside Problems: COMMENT/RELEVANT DATA Meds Current Medications Medications (Trade) Dose Ordered Sig/Alex Start Time Stop Time Status Last Admin Dose Admin Acetaminophen (Tylenol) 650 mg PRN Q4HRS PRN 07/29/16 08:30 Acetaminophen 650 mg 650 mg PRN Q6HRS PRN 07/27/16 16:30 07/29/16 08:33 DC 07/29/16 03:57 650 MG Albumin Human (Albuminar) 200 ml @ 200 mls/hr 1X PRN PRN 08/01/16 07:00 08/01/16 12:59 DC Albuterol/ Ipratropium (Duoneb) 3 ml RTQID 08/01/16 08:00 08/01/16 12:05 3 ML Albuterol/ Ipratropium 3 ml 3 ml STK-MED ONCE 08/01/16 06:59 08/01/16 07:00 DC 08/01/16 07:34 3 ML Alteplase, Recombinant (Cathflo) 2 mg PRN DAILY PRN 07/21/16 15:00 07/27/16 11:31 2 MG Amlodipine Besylate (Norvasc) 5 mg DAILY 07/25/16 12:00 07/29/16 08:44 DC 07/27/16 11:12 5 MG Daptomycin 340 mg/ Sodium Chloride 50 ml @ 100 mls/hr Q24H 07/27/16 13:00 07/30/16 07:25 DC 07/29/16 15:05 100 MLS/HR Daptomycin/Sodium Chloride (Cubicin/Iv Sodium Chloride 0.9% 50ml) 50 ml @ 100 mls/hr Q24H 07/18/16 15:00 07/20/16 11:25 DC 07/19/16 16:56 100 MLS/HR Darbepoetin Sarbjit 60 mcg 60 mcg WEEKLYHS 07/31/16 21:00 07/31/16 21:09 60 MCG Diphenhydramine HCl (Benadryl) 25 mg PRN Q6HRS PRN 07/16/16 17:45 07/31/16 15:01 DC 07/25/16 23:38 25 MG Dopamine HCl/ Dextrose 250 ml @ 11.513 mls/ hr CONT PRN 07/30/16 22:15 07/31/16 20:16 11.513 MLS/HR Fentanyl Citrate 30 ml @ 0 mls/hr CONT PRN PRN 07/30/16 16:45 08/01/16 06:57 0 MLS/HR Fentanyl Citrate (Fentanyl 2ml Vial) 50 mcg PRN Q2HR PRN 07/15/16 23:30 07/16/16 08:52 DC 07/16/16 08:10 50 MCG Fentanyl Citrate (Fentanyl 5ml Vial) 250 mcg 1X ONCE 07/29/16 13:45 07/29/16 13:48 DC 07/29/16 13:45 50 MCG Fentanyl Citrate 50 mcg 50 mcg PRN Q15MIN PRN 07/15/16 21:45 07/16/16 02:00 DC 07/16/16 00:30 50 MCG Fluconazole/ Sodium Chloride (Diflucan 200mg/ 100ml Premix) 100 ml @ 100 mls/hr Q24H 07/27/16 13:00 07/29/16 00:53 DC 07/28/16 13:32 100 MLS/HR Furosemide 20 mg 20 mg 1X ONCE 07/27/16 09:00 07/27/16 09:01 DC 07/27/16 11:31 20 MG Furosemide 40 mg 40 mg 1X ONCE 07/18/16 11:00 07/18/16 11:07 DC 07/18/16 11:43 40 MG Furosemide 60 mg 60 mg 1X ONCE 07/30/16 11:15 07/30/16 11:16 DC 07/30/16 11:14 60 MG Furosemide/Sodium Chloride (Lasix Drip/Iv Sodium Chloride 0.9% 100ml) 100 ml @ 0 mls/hr CONT PRN 07/30/16 14:30 07/31/16 03:17 10 MLS/HR Gentamicin Sulfate 1 each 1 each PRN DAILY PRN 07/19/16 12:15 07/25/16 16:14 DC 07/25/16 15:31 1 EACH Gentamicin Sulfate/Sodium Chloride (Iv Sodium Chloride 0.9% 100ml) 106.75 ml @ 106.75 mls/hr Q24H 07/19/16 13:00 07/25/16 16:12 DC 07/25/16 15:31 106.75 MLS/HR Gentamicin Sulfate 1 each 1X ONCE 07/25/16 12:30 07/25/16 12:31 Cancel Heparin Sodium (Porcine) 98103 unit 10,000 unit STK-MED ONCE 07/30/16 15:54 07/30/16 15:55 DC Heparin Sodium/ Sodium Chloride 1,000 unit 1X ONCE 07/30/16 15:45 07/30/16 15:46 DC 07/30/16 15:44 1,000 UNIT Hydrocortisone Sodium Succinate (Solu-Cortef) 100 mg Q8HRS 08/01/16 07:00 08/01/16 12:18 100 MG Hydromorphone HCl (Dilaudid) 4 mg PRN Q4HRS PRN 07/16/16 08:45 07/31/16 15:01 DC 07/30/16 09:23 4 MG Hyoscyamine (Anaspaz) 0.125 mg PRN Q6HRS PRN 07/20/16 09:00 07/31/16 15:01 DC Info (PHARMACY MONITORING -- do not chart) 1 each PRN DAILY PRN 08/01/16 07:00 UNV Info 1 each 1 each PRN DAILY PRN 07/16/16 03:00 Cancel Ketorolac Tromethamine (Toradol) 30 mg PRN Q6HRS PRN 07/29/16 08:30 07/30/16 13:01 DC 07/30/16 00:50 30 MG Lidocaine (Xylocaine) 1 nallely BID 07/17/16 09:00 08/01/16 12:19 1 NALLELY Lidocaine HCl 20 ml 1X ONCE 07/30/16 15:45 07/30/16 15:46 DC 07/30/16 15:44 20 ML Lidocaine/ Epinephrine (Xylocaine 1%-Epi 1:100,000) 20 ml STK-MED ONCE 07/29/16 13:22 07/29/16 13:23 DC Lidocaine/ Epinephrine 20 ml 20 ml 1X ONCE 07/29/16 13:45 07/29/16 13:48 DC 07/29/16 13:45 9 ML Lidocaine/Sodium Bicarbonate (Buffered Lidocaine 1%) 20 ml STK-MED ONCE 07/29/16 13:13 07/29/16 13:14 DC Linezolid 300 ml @ 300 mls/hr Q12HR 07/20/16 12:00 07/25/16 16:12 DC 07/25/16 09:02 300 MLS/HR Linezolid (Zyvox Premix) 300 ml @ 300 mls/hr Q12HR 07/16/16 10:00 07/18/16 13:28 DC 07/18/16 08:34 300 MLS/HR Lorazepam (Ativan) 0.5 mg PRN Q4HRS PRN 07/29/16 03:00 07/29/16 03:18 0.5 MG Meropenem 1 gm/ Sodium Chloride 100 ml @ 200 mls/hr Q8HRS 07/18/16 14:00 07/20/16 11:25 DC 07/20/16 05:21 200 MLS/HR Micafungin Sodium 100 mg/Dextrose 100 ml @ 100 mls/hr Q24H 07/18/16 14:00 07/20/16 11:25 DC 07/19/16 15:05 100 MLS/HR Micafungin Sodium/ Dextrose (Mycamine) 100 ml @ 100 mls/hr Q24H 07/29/16 01:00 08/01/16 00:58 100 MLS/HR Midazolam HCl (Versed 100mg/ 100ml Premix) 100 ml @ 0 mls/hr CONT PRN 07/30/16 21:15 08/01/16 02:51 5 MLS/HR Midazolam HCl (Versed) 1.5 mg 1X ONCE 07/30/16 15:45 07/30/16 15:46 DC 07/30/16 15:44 1.5 MG Norepinephrine Bitartrate 8 mg/ Sodium Chloride 258 ml @ 1.93 mls/hr 1X ONCE 07/30/16 11:15 07/30/16 15:43 DC 07/30/16 11:17 9.38 MLS/HR Norepinephrine Bitartrate/Sodium Chloride (Levophed Vial/ Iv Sodium Chloride 0.9% 250ml) 258 ml @ 0 mls/hr CONT PRN 07/30/16 11:15 08/01/16 09:15 42.57 MLS/HR Ondansetron HCl (Zofran) 8 mg PRN Q8HRS PRN 07/30/16 14:30 07/30/16 14:38 8 MG Pantoprazole Sodium (Protonix) 40 mg DAILYAC 07/16/16 09:30 07/29/16 08:44 DC 07/27/16 11:11 40 MG Pantoprazole Sodium 40 mg 40 mg DAILYAC 07/29/16 09:00 08/01/16 12:19 40 MG Phenazopyridine HCl (Pyridium) 200 mg TID 07/16/16 09:30 07/20/16 08:58 DC 07/20/16 08:25 200 MG Phenazopyridine HCl 200 mg 200 mg PRN TID PRN 07/20/16 09:00 07/31/16 15:01 DC 07/21/16 20:14 200 MG Piperacillin Sod/ Tazobactam Sod 3.375 gm/Sodium Chloride 50 ml @ 100 mls/hr Q6HRS 07/27/16 12:30 07/30/16 07:25 DC 07/30/16 05:30 100 MLS/HR Piperacillin Sod/ Tazobactam Sod/ Sodium Chloride (Zosyn/Iv Sodium Chloride 0.9% 100ml) 100 ml @ 200 mls/hr 1X ONCE 07/15/16 22:00 07/15/16 22:29 DC 07/15/16 22:56 200 MLS/HR Potassium Chloride/Dextrose/ Sod Cl (KCl 20 Meq In D5W-06/15 NS) 1,000 ml @ 80 mls/hr [id number] 07/16/16 09:30 07/16/16 21:59 DC 07/16/16 10:54 80 MLS/HR Propofol (Diprivan) 1,000 mg STK-MED ONCE 07/30/16 20:00 07/31/16 08:16 DC Simethicone (Gas-X) 80 mg PRN Q4HRS PRN 07/16/16 08:45 07/31/16 15:01 DC 07/24/16 22:30 80 MG Sodium Bicarbonate 150 meq/Dextrose 1,150 ml @ 125 mls/hr 1X ONCE 07/30/16 17:30 07/31/16 02:41 DC 07/30/16 18:34 125 MLS/HR Sodium Bicarbonate 50 meq 50 meq 1X ONCE 07/30/16 22:30 07/30/16 22:31 DC 07/30/16 22:15 50 MEQ Sodium Bicarbonate/ Dextrose 1,150 ml @ 125 mls/hr Q9H12M 07/31/16 03:00 08/01/16 09:30 125 MLS/HR Sodium Bicarbonate 50 meq 1X ONCE 07/30/16 14:30 07/30/16 14:31 DC 07/30/16 14:43 50 MEQ Sodium Chloride 1,000 ml @ 1,000 mls/hr Q1H PRN 08/01/16 06:57 08/01/16 12:56 DC Sodium Chloride (Iv Sodium Chloride 0.9% 500ml Bag) 500 ml @ 500 mls/hr 1X ONCE 07/15/16 22:00 07/15/16 22:59 DC 07/15/16 22:00 500 MLS/HR Sodium Chloride (Iv Sodium Chloride 0.9% 1000ml Bag) 1,000 ml @ 1,000 mls/hr Q1H PRN 07/31/16 11:33 07/31/16 17:32 DC Sodium Chloride 220 meq/Sodium Acetate 90 meq/ Potassium Chloride 15 meq/ Potassium Acetate 30 meq/Potassium Phosphate 10 mmol/ Magnesium Sulfate 45 meq/ Multivitamins/ Minerals 10 ml/ Chromium/Copper/ Manganese/Seleni/ Zn 1 ml/Total Parenteral Nutrition/Amino Acids/Dextrose/ Fat Emuls... 1,920 ml @ 80 mls/hr TPN CONT 07/30/16 22:00 07/31/16 21:59 DC Sodium Chloride 220 meq/Sodium Acetate 90 meq/ Potassium Chloride 30 meq/ Potassium Acetate 15 meq/Potassium Phosphate 10 mmol/ Magnesium Sulfate 45 meq/ Multivitamins/ Minerals 10 ml/ Chromium/Copper/ Manganese/Seleni/ Zn 1 ml/Total Parenteral Nutrition/Amino Acids/Dextrose/ Fat Emuls... 1,920 ml @ 80 mls/hr TPN CONT 07/28/16 22:00 07/29/16 21:59 DC 07/28/16 21:43 80 MLS/HR Sodium Chloride 220 meq/Sodium Acetate 90 meq/ Potassium Chloride 50 meq/ Potassium Acetate 15 meq/Potassium Phosphate 10 mmol/ Magnesium Sulfate 50 meq/Calcium Gluconate 3 meq/ Multivitamins/ Minerals 10 ml/ Chromium/Copper/ Manganese/Seleni/ Zn 1 ml/Total Parenteral Nutrition/Amino Acids/Dextro... 1,920 ml @ 80 mls/hr TPN CONT 07/18/16 22:00 07/19/16 21:59 DC 07/19/16 00:03 80 MLS/HR Sodium Chloride/ Sodium Acetate/ Potassium Chloride/ Potassium Acetate/ Potassium Phosphate/ Magnesium Sulfate/ Calcium Gluconate/ Multivitamins/ Minerals/Chromium/ Copper/Manganese/ Seleni/Zn/Total Parenteral Nutrition/Amino Acids/Dextrose/ Fat Emulsion Intravenous (Sodium Chlori... 1,920 ml @ 80 mls/hr TPN CONT 07/20/16 22:00 07/21/16 21:59 DC 07/20/16 21:30 80 MLS/HR Sodium Chloride/ Sodium Acetate/ Potassium Chloride/ Potassium Acetate/ Potassium Phosphate/ Magnesium Sulfate/ Multivitamins/ Minerals/Chromium/ Copper/Manganese/ Seleni/Zn/Total Parenteral Nutrition/Amino Acids/Dextrose/ Fat Emulsion Intravenous (Sodium Chloride/ Potass... 1,920 ml @ 80 mls/hr TPN CONT 07/29/16 22:00 07/30/16 21:59 DC 07/29/16 22:06 80 MLS/HR Succinylcholine Chloride 200 mg 200 mg STK-MED ONCE 07/30/16 20:00 07/31/16 08:16 DC Tigecycline 50 mg/ Sodium Chloride 50 ml @ 100 mls/hr Q12HR 07/31/16 21:00 08/01/16 12:19 100 MLS/HR Tigecycline/ Sodium Chloride (Tygacil/Iv Sodium Chloride 0.9% 100ml) 100 ml @ 200 mls/hr 1X ONCE 07/31/16 09:00 07/31/16 09:29 DC 07/31/16 09:22 200 MLS/HR Zinc Oxide 1 nallely BID 07/17/16 09:30 08/01/16 12:19 1 NALLELY Zolpidem Tartrate 5 mg 5 mg PRN QHS PRN 07/16/16 08:45 07/31/16 15:01 DC 07/26/16 23:14 5 MG Lab Laboratory Tests Test 08/01/16 06:20 08/01/16 08:00 White Blood Count 10.7x10^3/uL (4.0-11.0) Red Blood Count 3.49x10^6/uL (3.50-5.40) Hemoglobin 8.9g/dL (12.0-15.5) Hematocrit 27.4% (36.0-47.0) Mean Corpuscular Volume 79fL (79-100) Mean Corpuscular Hemoglobin 26pg (25-35) Mean Corpuscular Hemoglobin Concent 33g/dL (31-37) Red Cell Distribution Width 19.8% (11.5-14.5) Platelet Count 56x10^3/uL (140-400) Sodium Level 140mmol/L (136-145) Potassium Level 2.9mmol/L (3.5-5.1) Chloride Level 98mmol/L (98-107) Carbon Dioxide Level 30mmol/L (21-32) Anion Gap 12 (6-14) Blood Urea Nitrogen 33mg/dL (7-20) Creatinine 1.9mg/dL (0.6-1.0) Estimated GFR (Cockcroft-Gault) 32.5 Glucose Level 96mg/dL (70-99) Calcium Level 8.0mg/dL (8.5-10.1) Phosphorus Level 3.0mg/dL (2.6-4.7) Magnesium Level 1.9mg/dL (1.8-2.4) Triglycerides Level 155mg/dL (0-150) O2 Saturation 94% (92-99) Arterial Blood pH 7.56 (7.35-7.45) Arterial Blood pCO2 at Patient Temp 33mmHg (35-46) Arterial Blood pO2 at Patient Temp 69mmHg (65-108) Arterial Blood HCO3 29mmol/L (21-28) Arterial Blood Base Excess 7mmol/L (-3-3) FiO2 80 LATOSHA TATUM MD Aug 01, 2016 13:28
--- NOTE | 2016-08-01 14:48 | PDOC ---
PROGRESS NOTES Subjective Subjective Pt intubated and on multiple drips Objective Objective Vital Signs Date Time Temp Pulse Resp B/P Pulse Ox O2 Delivery O2 Flow Rate FiO2 08/01/16 13:29 24 95 Ventilator 08/01/16 10:00 99 119/58 08/01/16 07:00 98.1 98.1 08/01/16 04:00 96.0 Intake and Output 08/01/16 07:00 Intake Total 6195.5 ml Output Total 1945 ml Balance 4250.5 ml Intake Oral 0 ml IV Total 6195.5 ml Output Urine Total 1945 ml Physical Exam Physical Exam No significant change in cardiac exam Assessment Assessment Pt has a good urine output and the BP is better, will try to wean off the dopamine drip. Problems Medical Problems: (1) Abdominal pain Status: Acute (2) Enterocutaneous fistula Status: Acute (3) Sepsis Status: Acute (4) Urinary tract infection Status: Acute (5) UTI (urinary tract infection) Status: Acute Comment Review of Relevant I have reviewed the following items lucila (where applicable) has been applied. Labs Laboratory Tests Test 07/30/16 16:38 07/30/16 19:40 07/31/16 05:10 07/31/16 07:15 Sodium Level 144mmol/L (136-145) 146mmol/L (136-145) Potassium Level 4.0mmol/L (3.5-5.1) 3.7mmol/L (3.5-5.1) Chloride Level 111mmol/L (98-107) 109mmol/L (98-107) Carbon Dioxide Level 17mmol/L (21-32) 20mmol/L (21-32) Anion Gap 16 (6-14) 17 (6-14) Blood Urea Nitrogen 41mg/dL (7-20) 45mg/dL (7-20) Creatinine 2.0mg/dL (0.6-1.0) 2.6mg/dL (0.6-1.0) Estimated GFR (Cockcroft-Gault) 30.6 22.6 Glucose Level 61mg/dL (70-99) 79mg/dL (70-99) Calcium Level 8.0mg/dL (8.5-10.1) 8.0mg/dL (8.5-10.1) Phosphorus Level 4.1mg/dL (2.6-4.7) Albumin 2.1g/dL (3.4-5.0) 2.1g/dL (3.4-5.0) O2 Saturation 99% (92-99) Arterial Blood pH 7.32 (7.35-7.45) Arterial Blood pCO2 at Patient Temp 30mmHg (35-46) Arterial Blood pO2 at Patient Temp 307mmHg (65-108) Arterial Blood HCO3 15mmol/L (21-28) Arterial Blood Base Excess -10mmol/L (-3-3) FiO2 100 White Blood Count 4.6x10^3/uL (4.0-11.0) Red Blood Count 3.36x10^6/uL (3.50-5.40) Hemoglobin 8.6g/dL (12.0-15.5) Hematocrit 26.9% (36.0-47.0) Mean Corpuscular Volume 80fL (79-100) Mean Corpuscular Hemoglobin 26pg (25-35) Mean Corpuscular Hemoglobin Concent 32g/dL (31-37) Red Cell Distribution Width 20.2% (11.5-14.5) Platelet Count 78x10^3/uL (140-400) Neutrophils (%) (Auto) 80% (31-73) Lymphocytes (%) (Auto) 13% (24-48) Monocytes (%) (Auto) 6% (0-9) Eosinophils (%) (Auto) 1% (0-3) Basophils (%) (Auto) 1% (0-3) Neutrophils # (Auto) 3.6x10^3uL (1.8-7.7) Lymphocytes # (Auto) 0.6x10^3/uL (1.0-4.8) Monocytes # (Auto) 0.3x10^3/uL (0.0-1.1) Eosinophils # (Auto) 0.0x10^3/uL (0.0-0.7) Basophils # (Auto) 0.0x10^3/uL (0.0-0.2) Magnesium Level 3.1mg/dL (1.8-2.4) Total Bilirubin 4.0mg/dL (0.2-1.0) Direct Bilirubin 2.8mg/dL (0.0-0.2) Aspartate Amino Transf (AST/SGOT) 171U/L (15-37) Alanine Aminotransferase (ALT/SGPT) 54U/L (14-59) Alkaline Phosphatase 111U/L (46-116) Total Protein 6.1g/dL (6.4-8.2) Hepatitis B Surface Antigen Negative (Negative) Hepatitis B Surface Antibody Non reactive (.) Lactic Acid Level 4.7mmol/L (0.4-2.0) Test 07/31/16 08:00 08/01/16 06:20 08/01/16 08:00 O2 Saturation 88% (92-99) 94% (92-99) Arterial Blood pH 7.41 (7.35-7.45) 7.56 (7.35-7.45) Arterial Blood pCO2 at Patient Temp 30mmHg (35-46) 33mmHg (35-46) Arterial Blood pO2 at Patient Temp 59mmHg (65-108) 69mmHg (65-108) Arterial Blood HCO3 19mmol/L (21-28) 29mmol/L (21-28) Arterial Blood Base Excess -5mmol/L (-3-3) 7mmol/L (-3-3) FiO2 60 80 White Blood Count 10.7x10^3/uL (4.0-11.0) Red Blood Count 3.49x10^6/uL (3.50-5.40) Hemoglobin 8.9g/dL (12.0-15.5) Hematocrit 27.4% (36.0-47.0) Mean Corpuscular Volume 79fL (79-100) Mean Corpuscular Hemoglobin 26pg (25-35) Mean Corpuscular Hemoglobin Concent 33g/dL (31-37) Red Cell Distribution Width 19.8% (11.5-14.5) Platelet Count 56x10^3/uL (140-400) Sodium Level 140mmol/L (136-145) Potassium Level 2.9mmol/L (3.5-5.1) Chloride Level 98mmol/L (98-107) Carbon Dioxide Level 30mmol/L (21-32) Anion Gap 12 (6-14) Blood Urea Nitrogen 33mg/dL (7-20) Creatinine 1.9mg/dL (0.6-1.0) Estimated GFR (Cockcroft-Gault) 32.5 Glucose Level 96mg/dL (70-99) Calcium Level 8.0mg/dL (8.5-10.1) Phosphorus Level 3.0mg/dL (2.6-4.7) Magnesium Level 1.9mg/dL (1.8-2.4) Triglycerides Level 155mg/dL (0-150) Laboratory Tests Test 08/01/16 06:20 08/01/16 08:00 White Blood Count 10.7x10^3/uL (4.0-11.0) Red Blood Count 3.49x10^6/uL (3.50-5.40) Hemoglobin 8.9g/dL (12.0-15.5) Hematocrit 27.4% (36.0-47.0) Mean Corpuscular Volume 79fL (79-100) Mean Corpuscular Hemoglobin 26pg (25-35) Mean Corpuscular Hemoglobin Concent 33g/dL (31-37) Red Cell Distribution Width 19.8% (11.5-14.5) Platelet Count 56x10^3/uL (140-400) Sodium Level 140mmol/L (136-145) Potassium Level 2.9mmol/L (3.5-5.1) Chloride Level 98mmol/L (98-107) Carbon Dioxide Level 30mmol/L (21-32) Anion Gap 12 (6-14) Blood Urea Nitrogen 33mg/dL (7-20) Creatinine 1.9mg/dL (0.6-1.0) Estimated GFR (Cockcroft-Gault) 32.5 Glucose Level 96mg/dL (70-99) Calcium Level 8.0mg/dL (8.5-10.1) Phosphorus Level 3.0mg/dL (2.6-4.7) Magnesium Level 1.9mg/dL (1.8-2.4) Triglycerides Level 155mg/dL (0-150) O2 Saturation 94% (92-99) Arterial Blood pH 7.56 (7.35-7.45) Arterial Blood pCO2 at Patient Temp 33mmHg (35-46) Arterial Blood pO2 at Patient Temp 69mmHg (65-108) Arterial Blood HCO3 29mmol/L (21-28) Arterial Blood Base Excess 7mmol/L (-3-3) FiO2 80 Microbiology 07/28/16 Blood Culture - Preliminary, Resulted 07/28/16 Blood Culture Result 1 (ROYA) - Preliminary, Resulted 07/15/16 Urine Culture - Final, Complete 07/15/16 Urine Culture Result 1 (ROYA) - Final, Complete 07/15/16 Urine Culture Result 2 (ROYA) - Final, Complete 07/15/16 Antimicrobic Susceptibility - Final, Complete 07/29/16 Aerobic Culture - Preliminary, Resulted 07/29/16 Aerobic Culture Result 1 (ROYA) - Preliminary, Resulted Medications Current Medications Piperacillin Sod/ Tazobactam Sod/ Sodium Chloride (Zosyn/Iv Sodium Chloride 0.9 % 100ml) 100 ml @ 200 mls/hr 1X ONCE IV Last administered on 07/15/16 22:56; Start 07/15/16 at 22:00; Stop 07/15/16 at 22:29; Status DC Fentanyl Citrate 50 mcg 50 mcg PRN Q15MIN PRN IV PAIN GREATER THAN 3/10 Last administered on 07/16/16 00:30; Start 07/15/16 at 21:45; Stop 07/16/16 at 02:00; Status DC Sodium Chloride 1,000 ml @ 1,000 mls/hr 1X ONCE IV Last administered on 21:59; Start 07/15/16 at 22:00; Stop 07/15/16 at 22:59; Status DC Sodium Chloride (Iv Sodium Chloride 0.9% 500ml Bag) 500 ml @ 500 mls/hr 1X ONCE IV Last administered on 07/15/16 22:00; Start 07/15/16 at 22:00; Stop at 22:59; Status DC Ondansetron HCl (Zofran) 4 mg PRN Q8HRS PRN IV NAUSEA/VOMITING; Start 07/15/16 at 23:30; Stop 07/16/16 at 08:52; Status DC Fentanyl Citrate 50 mcg 50 mcg PRN Q2HR PRN IV SEVERE PAIN Last administered on 07/16/16 08:10; Start 07/15/16 at 23:30; Stop 07/16/16 at 08:52; Status DC Sodium Chloride (Iv Sodium Chloride 0.9% 1000ml Bag) 1,000 ml @ 150 mls/hr Q6H40M IV Last administered on 07/15/16 02:00; Start 07/15/16 at 23:45; Stop 07/16/16 at 08:52; Status DC Acetaminophen (Tylenol) 650 mg PRN Q4HRS PRN PO FEVER; Start 07/15/16 at 23:30; Stop 07/16/16 at 23:29; Status DC Info (Do NOT chart on this placeholder) 1 each PRN DAILY PRN MC NEEDS VERIFICATION; Start 07/16/16 at 03:00; Status Cancel Acetaminophen 650 mg 650 mg PRN Q4HRS PRN PO MILD PAIN / TEMP Last administered on 07/28/16 07:42; Start 07/16/16 at 08:45; Stop 07/29/16 at 08:33 ; Status DC Piperacillin Sod/ Tazobactam Sod 3.375 gm/Sodium Chloride 50 ml @ 100 mls/hr Q6HRS IV Last administered on 07/18/16 05:50; Start 07/16/16 at 10:00; Stop 07/18 at 13:28; Status DC Linezolid (Zyvox Premix) 300 ml @ 300 mls/hr Q12HR IV Last administered on 07/18 08:34; Start 07/16/16 at 10:00; Stop 07/18/16 at 13:28; Status DC Hydromorphone HCl (Dilaudid) 2 mg PRN Q4HRS PRN IV MODERATE PAIN Last administered on 07/28/16 23:33; Start 07/16/16 at 08:45 Hydromorphone HCl (Dilaudid) 4 mg PRN Q4HRS PRN IV SEVERE PAIN Last administered on 07/30/16 09:23; Start 07/16/16 at 08:45; Stop 07/31/16 at 15:01 ; Status DC Pantoprazole Sodium (Protonix) 40 mg DAILYAC PO Last administered on 07/27/16 11:11; Start 07/16/16 at 09:30; Stop 07/29/16 at 08:44; Status DC Hyoscyamine (Anaspaz) 0.125 mg Q6HRS PO Last administered on 07/20/16 05:20; Start 07/16/16 at 12:00; Stop 07/20/16 at 08:58; Status DC Phenazopyridine HCl (Pyridium) 200 mg TID PO Last administered on 07/20/16 08: 25; Start 07/16/16 at 09:30; Stop 07/20/16 at 08:58; Status DC Lorazepam (Ativan) 0.5 mg PRN BID PRN PO ANXIETY / AGITATION Last administered on 07/29/16 02:16; Start 07/16/16 at 08:45; Stop 07/31/16 at 15:01; Status DC Simethicone (Gas-X) 80 mg PRN Q4HRS PRN PO GAS / BLOATING Last administered on 07/24/16 22:30; Start 07/16/16 at 08:45; Stop 07/31/16 at 15:01; Status DC Zolpidem Tartrate 5 mg 5 mg PRN QHS PRN PO INSOMNIA Last administered on 23:14; Start 07/16/16 at 08:45; Stop 07/31/16 at 15:01; Status DC Potassium Chloride/Dextrose/ Sod Cl 1,000 ml @ 80 mls/hr [id number] IV Last administered on 07/16/16 10:54; Start 07/16/16 at 09:30; Stop 07/16/16 at 21:59; Status DC Fluconazole/ Sodium Chloride (Diflucan 200mg/ 100ml Premix) 100 ml @ 100 mls/ hr Q24H IV Last administered on 07/18/16 11:43; Start 07/16/16 at 11:00; Stop at 13:28; Status DC Info 1 each 1 each PRN DAILY PRN MC SEE COMMENTS Last administered on 12:41; Start 07/16/16 at 10:00; Stop 08/01/16 at 11:24; Status DC Sodium Chloride 220 meq/Sodium Acetate 90 meq/ Potassium Chloride 50 meq/ Potassium Acetate 15 meq/Potassium Phosphate 10 mmol/ Magnesium Sulfate 50 meq/ Calcium Gluconate 6 meq/ Multivitamins/ Minerals 10 ml/ Chromium/Copper/ Manganese/Seleni/ Zn 1 ml/Total Parenteral Nutrition/Amino Acids/Dextro... 1, 920 ml @ 80 mls/hr TPN CONT IV ; Start 07/16/16 at 22:00; Stop 07/16/16 at 22:00 ; Status DC Sodium Chloride/ Sodium Acetate/ Potassium Chloride/ Potassium Acetate/ Potassium Phosphate/ Magnesium Sulfate/ Calcium Gluconate/ Multivitamins/ Minerals/Chromium/ Copper/Manganese/ Seleni/Zn/Total Parenteral Nutrition/Amino Acids/Dextrose/ Fat Emulsion Intravenous (Sodium Chlori... 1,820 ml @ 75.833 mls/ hr TPN CONT IV Last administered on 07/16/16 21:03; Start 07/16/16 at 22: 00; Stop 07/17/16 at 21:59; Status DC Ondansetron HCl (Zofran) 4 mg PRN Q6HRS PRN IV NAUSEA/VOMITING Last administered on 07/21/16 08:48; Start 07/16/16 at 17:15; Stop 07/31/16 at 15:01; Status DC Diphenhydramine HCl (Benadryl) 25 mg PRN Q6HRS PRN PO ITCHING Last administered on 07/25/16 23:38; Start 07/16/16 at 17:45; Stop 07/31/16 at 15:01 ; Status DC Lidocaine (Xylocaine) 1 sang BID TP Last administered on 08/01/16 12:19; Start 07/17/16 at 09:00 Zinc Oxide 1 sang 1 sang BID TP Last administered on 08/01/16 12:19; Start at 09:30 Sodium Chloride/ Sodium Acetate/ Potassium Chloride/ Potassium Acetate/ Potassium Phosphate/ Magnesium Sulfate/ Calcium Gluconate/ Multivitamins/ Minerals/Chromium/ Copper/Manganese/ Seleni/Zn/Total Parenteral Nutrition/Amino Acids/Dextrose/ Fat Emulsion Intravenous (Sodium Chlori... 1,920 ml @ 80 mls/ hr TPN CONT IV Last administered on 07/17/16 22:13; Start 07/17/16 at 22:00; Stop 07/18/16 at 21:59; Status DC Furosemide 40 mg 40 mg 1X ONCE IVP Last administered on 07/18/16 11:43; Start 07/18/16 at 11:00; Stop 07/18/16 at 11:07; Status DC Sodium Chloride 220 meq/Sodium Acetate 90 meq/ Potassium Chloride 50 meq/ Potassium Acetate 15 meq/Potassium Phosphate 10 mmol/ Magnesium Sulfate 50 meq/ Calcium Gluconate 3 meq/ Multivitamins/ Minerals 10 ml/ Chromium/Copper/ Manganese/Seleni/ Zn 1 ml/Total Parenteral Nutrition/Amino Acids/Dextro... 1, 920 ml @ 80 mls/hr TPN CONT IV Last administered on 07/19/16 00:03; Start 07/18/16 at 22:00; Stop 07/19/16 at 21:59; Status DC Meropenem 1 gm/ Sodium Chloride 100 ml @ 200 mls/hr Q8HRS IV Last administered on 07/20/16 05:21; Start 07/18/16 at 14:00; Stop 07/20/16 at 11:25; Status DC Micafungin Sodium 100 mg/Dextrose 100 ml @ 100 mls/hr Q24H IV Last administered on 07/19/16 15:05; Start 07/18/16 at 14:00; Stop 07/20/16 at 11:25; Status DC Daptomycin/Sodium Chloride (Cubicin/Iv Sodium Chloride 0.9% 50ml) 50 ml @ 100 mls/hr Q24H IV Last administered on 07/19/16 16:56; Start 07/18/16 at 15:00; Stop 07/20/16 at 11:25; Status DC Alteplase, Recombinant (Cathflo) 2 mg 1X ONCE INT CAT Last administered on 07/19 06:24; Start 07/19/16 at 07:00; Stop 07/19/16 at 07:01; Status DC Gentamicin Sulfate 1 each 1 each PRN DAILY PRN MC SEE COMMENTS Last administered on 07/25/16 15:31; Start 07/19/16 at 12:15; Stop 07/25/16 at 16:14 ; Status DC Gentamicin Sulfate/Sodium Chloride (Iv Sodium Chloride 0.9% 100ml) 106.75 ml @ 106.75 mls/hr Q24H IV Last administered on 07/25/16 15:31; Start 07/19/16 at 13 :00; Stop 07/25/16 at 16:12; Status DC Gentamicin Sulfate 1 each 1 each 1X ONCE MC Last administered on 07/19/16 23: 00; Start 07/19/16 at 23:00; Stop 07/19/16 at 23:01; Status DC Sodium Chloride/ Sodium Acetate/ Potassium Chloride/ Potassium Acetate/ Potassium Phosphate/ Magnesium Sulfate/ Calcium Gluconate/ Multivitamins/ Minerals/Chromium/ Copper/Manganese/ Seleni/Zn/Total Parenteral Nutrition/Amino Acids/Dextrose/ Fat Emulsion Intravenous (Sodium Chlori... 1,920 ml @ 80 mls/ hr TPN CONT IV Last administered on 07/19/16 20:51; Start 07/19/16 at 22:00; Stop 07/20/16 at 21:59; Status DC Hyoscyamine (Anaspaz) 0.125 mg PRN Q6HRS PRN PO BLADDER SPASM; Start 07/20/16 at 09:00; Stop 07/31/16 at 15:01; Status DC Phenazopyridine HCl 200 mg 200 mg PRN TID PRN PO BLADDER SPASM Last administered on 07/21/16 20:14; Start 07/20/16 at 09:00; Stop 07/31/16 at 15:01; Status DC Linezolid 300 ml @ 300 mls/hr Q12HR IV Last administered on 07/25/16 09:02; Start 07/20/16 at 12:00; Stop 07/25/16 at 16:12; Status DC Sodium Chloride 220 meq/Sodium Acetate 90 meq/ Potassium Chloride 50 meq/ Potassium Acetate 15 meq/Potassium Phosphate 10 mmol/ Magnesium Sulfate 50 meq/ Calcium Gluconate 3 meq/ Multivitamins/ Minerals 10 ml/ Chromium/Copper/ Manganese/Seleni/ Zn 1 ml/Total Parenteral Nutrition/Amino Acids/Dextro... 1, 920 ml @ 80 mls/hr TPN CONT IV Last administered on 07/20/16 21:30; Start 07/20/16 at 22:00; Stop 07/21/16 at 21:59; Status DC Sodium Chloride/ Sodium Acetate/ Potassium Chloride/ Potassium Acetate/ Potassium Phosphate/ Magnesium Sulfate/ Multivitamins/ Minerals/Chromium/ Copper /Manganese/ Seleni/Zn/Total Parenteral Nutrition/Amino Acids/Dextrose/ Fat Emulsion Intravenous (Sodium Chloride/ Potass... 1,920 ml @ 80 mls/hr TPN CONT IV Last administered on 07/21/16 22:05; Start 07/21/16 at 22:00; Stop at 21:59; Status DC Alteplase, Recombinant 2 mg 2 mg PRN DAILY PRN INT CAT INFLAMMATION Last administered on 07/27/16 11:31; Start 07/21/16 at 15:00 Sodium Chloride 220 meq/Sodium Acetate 90 meq/ Potassium Chloride 50 meq/ Potassium Acetate 15 meq/Potassium Phosphate 10 mmol/ Magnesium Sulfate 50 meq/ Multivitamins/ Minerals 10 ml/ Chromium/Copper/ Manganese/Seleni/ Zn 1 ml/Total Parenteral Nutrition/Amino Acids/Dextrose/ Fat Emuls... 1,920 ml @ 80 mls/hr TPN CONT IV Last administered on 07/22/16 20:53; Start 07/22/16 at 22:00; Stop 07/23/16 at 21:59; Status DC Sodium Chloride/ Sodium Acetate/ Potassium Chloride/ Potassium Acetate/ Potassium Phosphate/ Magnesium Sulfate/ Multivitamins/ Minerals/Chromium/ Copper /Manganese/ Seleni/Zn/Total Parenteral Nutrition/Amino Acids/Dextrose/ Fat Emulsion Intravenous (Sodium Chloride/ Potass... 1,920 ml @ 80 mls/hr TPN CONT IV Last administered on 07/23/16 21:16; Start 07/23/16 at 22:00; Stop 07/24 at 21:59; Status DC Gentamicin Sulfate 1 each 1 each 1X ONCE MC ; Start 07/23/16 at 22:00; Stop 07/23 at 22:01; Status Cancel Sodium Chloride/ Sodium Acetate/ Potassium Chloride/ Potassium Acetate/ Potassium Phosphate/ Magnesium Sulfate/ Multivitamins/ Minerals/Chromium/ Copper /Manganese/ Seleni/Zn/Total Parenteral Nutrition/Amino Acids/Dextrose/ Fat Emulsion Intravenous (Sodium Chloride/ Potass... 1,920 ml @ 80 mls/hr TPN CONT IV Last administered on 07/24/16 21:15; Start 07/24/16 at 22:00; Stop 04/30 at 21:59; Status DC Gentamicin Sulfate 1 each 1X ONCE MC ; Start 07/25/16 at 12:30; Stop 07/25/16 at 12:31; Status Cancel Amlodipine Besylate 5 mg 5 mg DAILY PO Last administered on 07/27/16 11:12; Start 07/25/16 at 12:00; Stop 07/29/16 at 08:44; Status DC Sodium Chloride 220 meq/Sodium Acetate 90 meq/ Potassium Chloride 30 meq/ Potassium Acetate 15 meq/Potassium Phosphate 10 mmol/ Magnesium Sulfate 50 meq/ Multivitamins/ Minerals 10 ml/ Chromium/Copper/ Manganese/Seleni/ Zn 1 ml/Total Parenteral Nutrition/Amino Acids/Dextrose/ Fat Emuls... 1,920 ml @ 80 mls/hr TPN CONT IV Last administered on 07/25/16 22:25; Start 07/25/16 at 22:00; Stop 07/26/16 at 21:59; Status DC Sodium Chloride/ Sodium Acetate/ Potassium Chloride/ Potassium Acetate/ Potassium Phosphate/ Magnesium Sulfate/ Multivitamins/ Minerals/Chromium/ Copper /Manganese/ Seleni/Zn/Total Parenteral Nutrition/Amino Acids/Dextrose/ Fat Emulsion Intravenous (Sodium Chloride/ Potass... 1,920 ml @ 80 mls/hr TPN CONT IV Last administered on 07/26/16 23:16; Start 07/26/16 at 22:00; Stop at 21:59; Status DC Furosemide 20 mg 20 mg 1X ONCE IVP Last administered on 07/27/16 11:31; Start 07/27/16 at 09:00; Stop 07/27/16 at 09:01; Status DC Daptomycin 340 mg/ Sodium Chloride 50 ml @ 100 mls/hr Q24H IV Last administered on 07/29/16 15:05; Start 07/27/16 at 13:00; Stop 07/30/16 at 07:25 ; Status DC Piperacillin Sod/ Tazobactam Sod 3.375 gm/Sodium Chloride 50 ml @ 100 mls/hr Q6HRS IV Last administered on 07/30/16 05:30; Start 07/27/16 at 12:30; Stop at 07:25; Status DC Fluconazole/ Sodium Chloride 100 ml @ 100 mls/hr Q24H IV Last administered on 07/28/16 13:32; Start 07/27/16 at 13:00; Stop 07/29/16 at 00:53; Status DC Sodium Chloride 1,000 ml @ 1,000 mls/hr 1X ONCE IV Last administered on 12:34; Start 07/27/16 at 12:30; Stop 07/27/16 at 13:29; Status DC Sodium Chloride 220 meq/Sodium Acetate 90 meq/ Potassium Chloride 30 meq/ Potassium Acetate 15 meq/Potassium Phosphate 10 mmol/ Magnesium Sulfate 45 meq/ Multivitamins/ Minerals 10 ml/ Chromium/Copper/ Manganese/Seleni/ Zn 1 ml/Total Parenteral Nutrition/Amino Acids/Dextrose/ Fat Emuls... 1,920 ml @ 80 mls/hr TPN CONT IV Last administered on 07/27/16 22:38; Start 07/27/16 at 22:00; Stop 07/28/16 at 21:59; Status DC Sodium Chloride (Iv Sodium Chloride 0.9% 1000ml Bag) 1,000 ml @ 45 mls/hr [id number] IV Last administered on 07/28/16 03:24; Start 07/27/16 at 17:00; Stop 07/28/16 at 10:27; Status DC Acetaminophen 650 mg 650 mg PRN Q6HRS PRN [place] fever Last administered on 03:57; Start 07/27/16 at 16:30; Stop 07/29/16 at 08:33; Status DC Sodium Chloride 1,000 ml @ 427.5 mls/ hr Q2H21M IV Last administered on 19:30; Start 07/27/16 at 19:30; Stop 07/27/16 at 23:30; Status DC Sodium Chloride 220 meq/Sodium Acetate 90 meq/ Potassium Chloride 30 meq/ Potassium Acetate 15 meq/Potassium Phosphate 10 mmol/ Magnesium Sulfate 45 meq/ Multivitamins/ Minerals 10 ml/ Chromium/Copper/ Manganese/Seleni/ Zn 1 ml/Total Parenteral Nutrition/Amino Acids/Dextrose/ Fat Emuls... 1,920 ml @ 80 mls/hr TPN CONT IV Last administered on 07/28/16 21:43; Start 07/28/16 at 22:00; Stop 07/29/16 at 21:59; Status DC Micafungin Sodium/ Dextrose (Mycamine) 100 ml @ 100 mls/hr Q24H IV Last administered on 08/01/16 00:58; Start 07/29/16 at 01:00 Lorazepam (Ativan) 0.05 mg PRN Q4HRS PRN IV ANXIETY / AGITATION; Start at 02:30; Stop 07/29/16 at 02:48; Status DC Lorazepam (Ativan) 0.5 mg PRN Q4HRS PRN IV ANXIETY / AGITATION Last administered on 07/29/16 03:18; Start 07/29/16 at 03:00 Acetaminophen (Tylenol) 650 mg PRN Q4HRS PRN [place] MILD PAIN / TEMP; Start at 08:30 Ketorolac Tromethamine (Toradol) 30 mg PRN Q6HRS PRN IV PAIN/FEVER Last administered on 07/30/16 00:50; Start 07/29/16 at 08:30; Stop 07/30/16 at 13:01 ; Status DC Pantoprazole Sodium 40 mg 40 mg DAILYAC IVP Last administered on 08/01/16 12: 19; Start 07/29/16 at 09:00 Sodium Chloride 1,000 ml @ 45 mls/hr [id number] IV Last administered on 09:17; Start 07/29/16 at 08:45; Stop 07/31/16 at 15:01; Status DC Sodium Chloride/ Sodium Acetate/ Potassium Chloride/ Potassium Acetate/ Potassium Phosphate/ Magnesium Sulfate/ Multivitamins/ Minerals/Chromium/ Copper /Manganese/ Seleni/Zn/Total Parenteral Nutrition/Amino Acids/Dextrose/ Fat Emulsion Intravenous (Sodium Chloride/ Potass... 1,920 ml @ 80 mls/hr TPN CONT IV Last administered on 07/29/16 22:06; Start 07/29/16 at 22:00; Stop at 21:59; Status DC Lidocaine/Sodium Bicarbonate 20 ml 20 ml STK-MED ONCE IJ ; Start 07/29/16 at 13: 13; Stop 07/29/16 at 13:14; Status DC Heparin Sodium/ Sodium Chloride 500 ml @ As Directed STK-MED ONCE .ROUTE ; Start 07/29/16 at 13:13; Stop 07/29/16 at 13:14; Status DC Lidocaine/ Epinephrine (Xylocaine 1%-Epi 1:100,000) 20 ml STK-MED ONCE .ROUTE ; Start 07/29/16 at 13:22; Stop 07/29/16 at 13:23; Status DC Midazolam HCl (Versed) 5 mg STK-MED ONCE .ROUTE ; Start 07/29/16 at 13:32; Stop 07/29/16 at 13:33; Status DC Fentanyl Citrate (Fentanyl 5ml Vial) 250 mcg STK-MED ONCE .ROUTE ; Start at 13:32; Stop 07/29/16 at 13:33; Status DC Heparin Sodium/ Sodium Chloride 1,000 unit 1X ONCE IART Last administered on 13:45; Start 07/29/16 at 13:45; Stop 07/29/16 at 13:48; Status DC Midazolam HCl (Versed) 5 mg 1X ONCE IV Last administered on 07/29/16 13:45; Start 07/29/16 at 13:45; Stop 07/29/16 at 13:48; Status DC Fentanyl Citrate (Fentanyl 5ml Vial) 250 mcg 1X ONCE IV Last administered on 13:45; Start 07/29/16 at 13:45; Stop 07/29/16 at 13:48; Status DC Lidocaine/ Epinephrine 20 ml 20 ml 1X ONCE IJ Last administered on 07/29/16 13:45; Start 07/29/16 at 13:45; Stop 07/29/16 at 13:48; Status DC Sodium Chloride 220 meq/Sodium Acetate 90 meq/ Potassium Chloride 15 meq/ Potassium Acetate 30 meq/Potassium Phosphate 10 mmol/ Magnesium Sulfate 45 meq/ Multivitamins/ Minerals 10 ml/ Chromium/Copper/ Manganese/Seleni/ Zn 1 ml/Total Parenteral Nutrition/Amino Acids/Dextrose/ Fat Emuls... 1,920 ml @ 80 mls/hr TPN CONT IV ; Start 07/30/16 at 22:00; Stop 07/31/16 at 21:59; Status DC Norepinephrine Bitartrate 8 mg/ Sodium Chloride 258 ml @ 1.93 mls/hr 1X ONCE IV Last administered on 07/30/16 11:17; Start 07/30/16 at 11:15; Stop at 15:43; Status DC Norepinephrine Bitartrate/Sodium Chloride (Levophed Vial/ Iv Sodium Chloride 0.9 % 250ml) 258 ml @ 0 mls/hr CONT PRN IV SEE I/O RECORD Last administered on 08/01 09:15; Start 07/30/16 at 11:15 Furosemide 60 mg 60 mg 1X ONCE IVP Last administered on 07/30/16 11:14; Start 07/30/16 at 11:15; Stop 07/30/16 at 11:16; Status DC Sodium Chloride 500 ml @ 500 mls/hr Q1H IV Last administered on 07/30/16 17: 04; Start 07/30/16 at 14:30; Stop 07/30/16 at 15:29; Status DC Albumin Human 100 ml @ 100 mls/hr Q8HRS IV Last administered on 07/31/16 05: 37; Start 07/30/16 at 14:30; Stop 07/31/16 at 06:59; Status DC Furosemide/Sodium Chloride (Lasix Drip/Iv Sodium Chloride 0.9% 100ml) 100 ml @ 0 mls/hr CONT PRN IV SEE I/O RECORD Last administered on 07/31/16 03:17; Start 07/30/16 at 14:30; Stop 08/01/16 at 13:19; Status DC Ondansetron HCl (Zofran) 8 mg PRN Q8HRS PRN IV NAUSEA/VOMITING Last administered on 07/30/16 14:38; Start 07/30/16 at 14:30 Sodium Bicarbonate 50 meq 50 meq 1X ONCE IV Last administered on 07/30/16 14: 43; Start 07/30/16 at 14:30; Stop 07/30/16 at 14:31; Status DC Heparin Sodium/ Sodium Chloride 500 ml @ As Directed STK-MED ONCE .ROUTE ; Start 07/30/16 at 14:49; Stop 07/30/16 at 14:50; Status DC Lidocaine HCl 20 ml STK-MED ONCE .ROUTE ; Start 07/30/16 at 14:49; Stop at 14:50; Status DC Midazolam HCl (Versed) 2 mg STK-MED ONCE .ROUTE ; Start 07/30/16 at 15:19; Stop 07/30/16 at 15:20; Status DC Heparin Sodium/ Sodium Chloride 1,000 unit 1X ONCE IART Last administered on 15:44; Start 07/30/16 at 15:45; Stop 07/30/16 at 15:46; Status DC Midazolam HCl (Versed) 1.5 mg 1X ONCE IV Last administered on 07/30/16 15:44 ; Start 07/30/16 at 15:45; Stop 07/30/16 at 15:46; Status DC Lidocaine HCl 20 ml 1X ONCE IJ Last administered on 07/30/16 15:44; Start at 15:45; Stop 07/30/16 at 15:46; Status DC Heparin Sodium (Porcine) [id number] unit 10,000 unit STK-MED ONCE .ROUTE ; Start at 15:54; Stop 07/30/16 at 15:55; Status DC Fentanyl Citrate 30 ml @ 0 mls/hr CONT PRN PRN IV PROTOCOL Last administered on 08/01/16 13:29; Start 07/30/16 at 16:45 Sodium Bicarbonate/ Dextrose 1,150 ml @ 125 mls/hr 1X ONCE IV Last administered on 07/30/16 18:34; Start 07/30/16 at 17:30; Stop 07/31/16 at 02:41 ; Status DC Succinylcholine Chloride 200 mg 200 mg STK-MED ONCE .ROUTE ; Start 07/30/16 at 19:47; Stop 07/30/16 at 19:48; Status DC Propofol 100 ml @ As Directed STK-MED ONCE IV ; Start 07/30/16 at 19:48; Stop 07/30/16 at 19:49; Status DC Midazolam HCl (Versed 100mg/ 100ml Premix) 100 ml @ 0 mls/hr CONT PRN IV SEE I/ O RECORD Last administered on 08/01/16 14:42; Start 07/30/16 at 21:15 Sodium Bicarbonate 50 meq 50 meq 1X ONCE IV Last administered on 07/30/16 22: 15; Start 07/30/16 at 22:30; Stop 07/30/16 at 22:31; Status DC Dopamine HCl/ Dextrose 250 ml @ 11.513 mls/ hr CONT PRN IV SEE I/O RECORD Last administered on 07/31/16 20:16; Start 07/30/16 at 22:15 Sodium Bicarbonate/ Dextrose 1,150 ml @ 125 mls/hr Q9H12M IV Last administered on 08/01/16 09:30; Start 07/31/16 at 03:00; Stop 08/01/16 at 13:19 ; Status DC Propofol (Diprivan) 1,000 mg STK-MED ONCE IV ; Start 07/30/16 at 20:00; Stop at 08:16; Status DC Succinylcholine Chloride 200 mg 200 mg STK-MED ONCE .ROUTE ; Start 07/30/16 at 20:00; Stop 07/31/16 at 08:16; Status DC Tigecycline 50 mg/ Sodium Chloride 50 ml @ 100 mls/hr Q12HR IV Last administered on 08/01/16 12:19; Start 07/31/16 at 21:00 Tigecycline/ Sodium Chloride (Tygacil/Iv Sodium Chloride 0.9% 100ml) 100 ml @ 200 mls/hr 1X ONCE IV Last administered on 07/31/16 09:22; Start 07/31/16 at 09:00; Stop 07/31/16 at 09:29; Status DC Darbepoetin Sarbjit 60 mcg 60 mcg [id number] SQ Last administered on 07/31/16 21:09 ; Start 07/31/16 at 21:00 Albumin Human 100 ml @ 100 mls/hr 1X ONCE IV Last administered on 07/31/16 11:40; Start 07/31/16 at 11:15; Stop 07/31/16 at 12:14; Status DC Albumin Human 100 ml @ 100 mls/hr 1X ONCE IV Last administered on 07/31/16 12:03; Start 07/31/16 at 11:15; Stop 07/31/16 at 12:14; Status DC Sodium Chloride (Iv Sodium Chloride 0.9% 1000ml Bag) 1,000 ml @ 1,000 mls/hr Q1H PRN IV hypotension; Start 07/31/16 at 11:33; Stop 07/31/16 at 17:32; Status DC Info (PHARMACY MONITORING -- do not chart) 1 each PRN DAILY PRN MC SEE COMMENTS ; Start 07/31/16 at 11:45 Info (PHARMACY MONITORING -- do not chart) 1 each PRN DAILY PRN MC SEE COMMENTS ; Start 07/31/16 at 11:45; Status UNV Hydrocortisone Sodium Succinate (Solu-Cortef) 100 mg Q8HRS IV Last administered on 08/01/16 13:33; Start 08/01/16 at 07:00 Albuterol/ Ipratropium (Duoneb) 3 ml RTQID NEB Last administered on 08/01/16 12:05; Start 08/01/16 at 08:00 Albuterol/ Ipratropium 3 ml 3 ml STK-MED ONCE .ROUTE Last administered on t 07:34; Start 08/01/16 at 06:59; Stop 08/01/16 at 07:00; Status DC Sodium Chloride 1,000 ml @ 1,000 mls/hr Q1H PRN IV hypotension; Start 08/01/16 at 06:57; Stop 08/01/16 at 12:56; Status DC Albumin Human (Albuminar) 200 ml @ 200 mls/hr 1X PRN PRN IV Hypotension; Start 08/01/16 at 07:00; Stop 08/01/16 at 12:59; Status DC Info (PHARMACY MONITORING -- do not chart) 1 each PRN DAILY PRN MC SEE COMMENTS ; Start 08/01/16 at 07:00; Status UNV Info 1 each 1 each PRN DAILY PRN MC SEE COMMENTS; Start 08/01/16 at 13:30 Sodium Chloride/ Sodium Acetate/ Potassium Chloride/ Potassium Acetate/ Potassium Phosphate/ Magnesium Sulfate/ Multivitamins/ Minerals/Chromium/ Copper /Manganese/ Seleni/Zn/Total Parenteral Nutrition/Amino Acids/Dextrose/ Fat Emulsion Intravenous (Sodium Chloride/ Potass... 1,920 ml @ 80 mls/hr TPN CONT IV ; Start 08/01/16 at 22:00; Stop 08/02/16 at 21:59 Active Scripts Active Dilaudid (Hydromorphone Hcl) 4 Mg Tablet 4 Mg PO Q6HRS Phenazopyridine Hcl 200 Mg Tablet 200 Mg PO PRN TID PRN FENTANYL 50mcg/hr (Fentanyl) 1 Each Patch.td72 1 Patch TD Q3DAYS Anaspaz (Hyoscyamine Sulfate) 0.125 Mg Tab.rapdis 0.125 Mg PO Q6HRS PRN Cefpodoxime Proxetil 200 Mg Tablet 200 Mg PO BID Sertraline Hcl 50 Mg Tablet 100 Mg PO DAILY 30 Days Protonix (Pantoprazole Sodium) 40 Mg Tablet.dr 1 Tab PO DAILY Zinc Oxide 56.7 Gm Oint...g. 1 Sang TP BID Lidocaine 35.44 Gm Oint...g. 1 Sang TP BID Ondansetron Odt (Ondansetron) 4 Mg Tab.rapdis 8 Mg PO PRN Q8HRS PRN Gas-X (Simethicone) 80 Mg Tab.chew 80 Mg PO PRN QID PRN Reported Lorazepam 0.5 Mg Tablet 0.5 Mg PO PRN BID PRN Vitals/I & O Vital Sign - Last 24 Hours 07/31/16 07/31/16 07/31/16 07/31/16 15:00 15:52 16:00 16:00 Temp 99.5 99.7 99.5 99.7 Pulse 118 114 Resp 30 30 B/P 130/60 150/72 Pulse Ox 93 95 97 O2 Delivery Ventilator Ventilator Mechanical Ventilator Ventilator 07/31/16 07/31/16 07/31/16 07/31/16 16:00 17:00 18:00 18:15 Temp 100.2 100.0 100.2 100.0 Pulse 114 114 116 Resp 24 29 B/P 150/72 120/58 132/64 Pulse Ox 97 95 95 O2 Delivery Ventilator Ventilator Ventilator 07/31/16 07/31/16 07/31/16 07/31/16 19:00 19:32 20:00 20:00 Temp 100.0 100.0 Pulse 110 110 Resp 30 B/P 92/47 130/61 Pulse Ox 92 95 O2 Delivery Ventilator Ventilator Mechanical Ventilator 07/31/16 07/31/16 07/31/16 07/31/16 20:00 21:00 21:00 21:40 Temp 99.9 99.9 Pulse 110 111 111 Resp 30 30 B/P 130/61 96/49 96/49 Pulse Ox 96 94 93 O2 Delivery Ventilator 07/31/16 07/31/16 07/31/16 07/31/16 22:00 22:00 23:00 23:00 Temp 99.9 99.9 Pulse 109 109 106 106 Resp 30 30 B/P 104/50 101/50 102/49 102/49 Pulse Ox 93 95 O2 Delivery Ventilator Ventilator 07/31/16 08/01/16 08/01/16 08/01/16 23:34 00:00 00:00 00:01 Temp 100.0 100.0 Pulse 107 108 Resp 30 B/P 109/54 116/56 Pulse Ox 92 93 O2 Delivery Ventilator Mechanical Ventilator Ventilator 08/01/16 08/01/16 08/01/16 08/01/16 01:00 01:00 01:30 02:00 Temp 100.0 100.0 Pulse 113 108 101 Resp 30 B/P 125/61 126/62 164/73 Pulse Ox 93 94 O2 Delivery Ventilator Ventilator 18/17 218/17 2/18/17 218 02:00 03:00 03:00 03:45 Temp 99.5 99.5 99.5 99.5 Pulse 96 104 104 Resp 30 30 B/P 173/76 143/63 117/59 Pulse Ox 93 95 92 O2 Delivery Ventilator Ventilator Ventilator 18/17 2/17 218/17 2 04:00 04:00 04:00 05:00 Temp 98.8 98.2 98.8 98.2 Pulse 102 100 99 Resp 30 30 B/P 131/62 138/66 159/71 Pulse Ox 92 96 O2 Delivery Ventilator Mechanical Ventilator Ventilator O2 Flow Rate 96.0 18/17 2/18/17 2//17 2 05:00 05:40 06:00 06:00 Temp 98.2 98.2 Pulse 94 98 99 Resp 30 B/P 163/75 140/62 143/62 Pulse Ox 96 96 O2 Delivery Ventilator Ventilator 17 08/01/17 218/17 2 07:00 07:00 07:27 07:35 Temp 98.1 98.1 Pulse 92 92 Resp 30 30 B/P 150/66 150/66 Pulse Ox 99 100 97 O2 Delivery Ventilator Ventilator Ventilator 08/01/16 2/17 2/17 2 08:00 08:00 09:00 09:00 Pulse 94 94 92 92 Resp 30 24 B/P 154/64 154/64 102/52 102/52 Pulse Ox 95 98 18/17 218/17 218/17 21817 10:00 10:00 10:13 12:01 Pulse 99 99 Resp 24 B/P 119/58 119/58 Pulse Ox 98 98 96 O2 Delivery Ventilator Ventilator 08/01/16 13:29 Resp 24 Pulse Ox 95 O2 Delivery Ventilator Intake and Output 07/31/16 2 2 15:00 23:00 07:00 Intake Total 100 ml 6095.5 ml Output Total 610 ml 705 ml 630 ml Balance -610 ml -605 ml 5465.5 ml MATT PALACIOS MD Aug 01, 2016 14:48
[2016-08-01] MEDS: TPN PER PHARMACY MC PRN (15:23)
[2016-08-01 16:26] LABS: CALCIUM 8.1 mg/dL (8.5-10.1); CREATININE 1.4 mg/dL (0.6-1.0); GFR 46.3; POTASSIUM 3.2 mmol/L (3.5-5.1)
[2016-08-01] MEDS: POTASSIUM CHLORIDE 20MEQ 50 ML IV SCH ×2 (16:47→19:05)
[2016-08-01] MEDS ORDERED: TOTAL PARENTERAL NUTRITION IV SCH ×11 (22:00)
[2016-08-01] MEDS ORDERED: AMINO ACIDS IV SCH ×11 (22:00)
[2016-08-01] MEDS ORDERED: DEXTROSE 70% IV SCH ×11 (22:00)
[2016-08-01] MEDS ORDERED: [UNRECOGNIZED DRUG - OTHER] IV SCH ×11 (22:00)
[2016-08-02] VITALS (24 sets, daily range): BP systolic 94–130; BP diastolic 51–64
[2016-08-02] MEDS: MIDAZOLAM PREMIX 100 ML IV PRN (00:29)
[2016-08-02] MEDS: MICAFUNGIN 100 MG in IV DEXTROSE 5% 100 ML IV SCH (00:45)
[2016-08-02] MEDS: NOREPINEPHRINE VIAL 8 MG in IV NORMAL SALINE 250ML 250 ML IV PRN ×2 (00:45→19:54)
[2016-08-02] MEDS: HYDROCORTISONE SOD SUCC/PF 100 MG/2 ML VIAL. IV SCH ×3 (05:41→21:33)
[2016-08-02 05:57] LABS: BASO # 0.1 x10^3/uL (0.0-0.2); BASO % 1 % (0-3); EOS % 0 % (0-3); HEMATOCRIT 29.1 % (36.0-47.0); HEMOGLOBIN 9.5 g/dL (12.0-15.5); LYMPH % 14 % (24-48); MEAN CORPUSCULAR HEMOGLOBIN 26 pg (25-35); MEAN CORPUSCULAR HGB CONC 33 g/dL (31-37); MEAN CORPUSCULAR VOLUME 79 fL (79-100); MONO % 6 % (0-9); NEUT % 79 % (31-73); PLATELET COUNT 46 x10^3/uL (140-400); RED BLOOD COUNT 3.69 x10^6/uL (3.50-5.40); WHITE BLOOD COUNT 14.5 x10^3/uL (4.0-11.0)
--- NOTE | 2016-08-02 07:13 | PDOC ---
PULMONARY PROGRESS NOTES Subjective on vent, fio2 70%, peep 7, on levo 12, sedated. Vitals Vital Signs Date Time Temp Pulse Resp B/P Pulse Ox O2 Delivery O2 Flow Rate FiO2 08/02/16 06:00 96.8 82 24 108/58 97 Ventilator 96.8 Comments melani , danica w rn, as mentioned as above, other sys otherwise neg lymphatics no lap HEENT: Other (nc at perrl, nose clear, orally intuvated. ) Lungs: Crackles Cardiovascular: S1, S2 Abdomen: Soft, Non-tender, Other Extremities: Other (edema) Skin: Warm Labs Laboratory Tests Test 07/31/16 07:15 07/31/16 08:00 08/01/16 06:20 08/01/16 08:00 Lactic Acid Level 4.7mmol/L (0.4-2.0) O2 Saturation 88% (92-99) 94% (92-99) Arterial Blood pH 7.41 (7.35-7.45) 7.56 (7.35-7.45) Arterial Blood pCO2 at Patient Temp 30mmHg (35-46) 33mmHg (35-46) Arterial Blood pO2 at Patient Temp 59mmHg (65-108) 69mmHg (65-108) Arterial Blood HCO3 19mmol/L (21-28) 29mmol/L (21-28) Arterial Blood Base Excess -5mmol/L (-3-3) 7mmol/L (-3-3) FiO2 60 80 White Blood Count 10.7x10^3/uL (4.0-11.0) Red Blood Count 3.49x10^6/uL (3.50-5.40) Hemoglobin 8.9g/dL (12.0-15.5) Hematocrit 27.4% (36.0-47.0) Mean Corpuscular Volume 79fL (79-100) Mean Corpuscular Hemoglobin 26pg (25-35) Mean Corpuscular Hemoglobin Concent 33g/dL (31-37) Red Cell Distribution Width 19.8% (11.5-14.5) Platelet Count 56x10^3/uL (140-400) Sodium Level 140mmol/L (136-145) Potassium Level 2.9mmol/L (3.5-5.1) Chloride Level 98mmol/L (98-107) Carbon Dioxide Level 30mmol/L (21-32) Anion Gap 12 (6-14) Blood Urea Nitrogen 33mg/dL (7-20) Creatinine 1.9mg/dL (0.6-1.0) Estimated GFR (Cockcroft-Gault) 32.5 Glucose Level 96mg/dL (70-99) Calcium Level 8.0mg/dL (8.5-10.1) Phosphorus Level 3.0mg/dL (2.6-4.7) Magnesium Level 1.9mg/dL (1.8-2.4) Triglycerides Level 155mg/dL (0-150) Test 08/01/16 16:00 08/02/16 05:45 Sodium Level 142mmol/L (136-145) Potassium Level 3.2mmol/L (3.5-5.1) Chloride Level 101mmol/L (98-107) Carbon Dioxide Level 31mmol/L (21-32) Anion Gap 10 (6-14) Blood Urea Nitrogen 21mg/dL (7-20) Creatinine 1.4mg/dL (0.6-1.0) Estimated GFR (Cockcroft-Gault) 46.3 Glucose Level 61mg/dL (70-99) Lactic Acid Level 4.3mmol/L (0.4-2.0) 5.4mmol/L (0.4-2.0) Calcium Level 8.1mg/dL (8.5-10.1) White Blood Count 14.5x10^3/uL (4.0-11.0) Red Blood Count 3.69x10^6/uL (3.50-5.40) Hemoglobin 9.5g/dL (12.0-15.5) Hematocrit 29.1% (36.0-47.0) Mean Corpuscular Volume 79fL (79-100) Mean Corpuscular Hemoglobin 26pg (25-35) Mean Corpuscular Hemoglobin Concent 33g/dL (31-37) Red Cell Distribution Width 20.0% (11.5-14.5) Platelet Count 46x10^3/uL (140-400) Neutrophils (%) (Auto) 79% (31-73) Lymphocytes (%) (Auto) 14% (24-48) Monocytes (%) (Auto) 6% (0-9) Eosinophils (%) (Auto) 0% (0-3) Basophils (%) (Auto) 1% (0-3) Neutrophils # (Auto) 11.5x10^3uL (1.8-7.7) Lymphocytes # (Auto) 2.0x10^3/uL (1.0-4.8) Monocytes # (Auto) 0.9x10^3/uL (0.0-1.1) Eosinophils # (Auto) 0.0x10^3/uL (0.0-0.7) Basophils # (Auto) 0.1x10^3/uL (0.0-0.2) Magnesium Level 2.1mg/dL (1.8-2.4) Laboratory Tests Test 08/01/16 08:00 08/01/16 16:00 08/02/16 05:45 O2 Saturation 94% (92-99) Arterial Blood pH 7.56 (7.35-7.45) Arterial Blood pCO2 at Patient Temp 33mmHg (35-46) Arterial Blood pO2 at Patient Temp 69mmHg (65-108) Arterial Blood HCO3 29mmol/L (21-28) Arterial Blood Base Excess 7mmol/L (-3-3) FiO2 80 Sodium Level 142mmol/L (136-145) Potassium Level 3.2mmol/L (3.5-5.1) Chloride Level 101mmol/L (98-107) Carbon Dioxide Level 31mmol/L (21-32) Anion Gap 10 (6-14) Blood Urea Nitrogen 21mg/dL (7-20) Creatinine 1.4mg/dL (0.6-1.0) Estimated GFR (Cockcroft-Gault) 46.3 Glucose Level 61mg/dL (70-99) Lactic Acid Level 4.3mmol/L (0.4-2.0) 5.4mmol/L (0.4-2.0) Calcium Level 8.1mg/dL (8.5-10.1) White Blood Count 14.5x10^3/uL (4.0-11.0) Red Blood Count 3.69x10^6/uL (3.50-5.40) Hemoglobin 9.5g/dL (12.0-15.5) Hematocrit 29.1% (36.0-47.0) Mean Corpuscular Volume 79fL (79-100) Mean Corpuscular Hemoglobin 26pg (25-35) Mean Corpuscular Hemoglobin Concent 33g/dL (31-37) Red Cell Distribution Width 20.0% (11.5-14.5) Platelet Count 46x10^3/uL (140-400) Neutrophils (%) (Auto) 79% (31-73) Lymphocytes (%) (Auto) 14% (24-48) Monocytes (%) (Auto) 6% (0-9) Eosinophils (%) (Auto) 0% (0-3) Basophils (%) (Auto) 1% (0-3) Neutrophils # (Auto) 11.5x10^3uL (1.8-7.7) Lymphocytes # (Auto) 2.0x10^3/uL (1.0-4.8) Monocytes # (Auto) 0.9x10^3/uL (0.0-1.1) Eosinophils # (Auto) 0.0x10^3/uL (0.0-0.7) Basophils # (Auto) 0.1x10^3/uL (0.0-0.2) Magnesium Level 2.1mg/dL (1.8-2.4) Medications Active Scripts Medications Dose Route/Sig Days Date Category Dilaudid (Hydromorphone Hcl) 4 Mg Tablet 4 Mg PO Q6HRS 06/29/16 Rx Phenazopyridine Hcl 200 Mg Tablet 200 Mg PO PRN TID PRN 06/29/16 Rx FENTANYL 50mcg/hr (Fentanyl) 1 Each Patch.td72 1 Patch TD Q3DAYS 06/29/16 Rx Anaspaz (Hyoscyamine Sulfate) 0.125 Mg Tab.rapdis 0.125 Mg PO Q6HRS PRN 06/29/16 Rx Cefpodoxime Proxetil 200 Mg Tablet 200 Mg PO BID 06/29/16 Rx Sertraline Hcl 50 Mg Tablet 100 Mg PO DAILY 30 05/12/16 Rx Protonix (Pantoprazole Sodium) 40 Mg Tablet.dr 1 Tab PO DAILY 12/27/15 Rx Zinc Oxide 56.7 Gm Oint...g. 1 Sang TP BID 12/18/15 Rx Lidocaine 35.44 Gm Oint...g. 1 Sang TP BID 12/18/15 Rx Ondansetron Odt (Ondansetron) 4 Mg Tab.rapdis 8 Mg PO PRN Q8HRS PRN 07/03/15 Rx Gas-X (Simethicone) 80 Mg Tab.chew 80 Mg PO PRN QID PRN 09/30/14 Rx Lorazepam 0.5 Mg Tablet 0.5 Mg PO PRN BID PRN 11/08/13 Reported Comments cxr reviewed, b lat infilt, l atelectasis, ett, ok Impression . 1. Acute respiratory failure, multifactorial. 2. Septic shock. 3. Bilateral pulmonary infiltrates compatible with pulmonary edema, possible pneumonia. 4. Fungemia. 5. Chronic enterocutaneous fistula. 6. Metabolic toxic encephalopathy. 7. Acute renal failure. 8. [id number]-my-gnhmua protein malnutrition, present upon admission. 9. Metabolic acidosis. Plan . cont vent support, titrate fi02 to keep sat 94%, if not able to decrease fio2 to 50% will increase peep to 10, abg reviewed, decrease rr to 20. abx solucortef bronchodilator am abg pcxr cont abx, antifungal protonix, scds for prophylaxis decrease sedation pressors to keep map 65 prognosis poor discussed w rn, rt. GODWIN BAUTISTA MD Aug 02, 2016 07:13
[2016-08-02 07:16] LABS: CALCIUM 7.7 mg/dL (8.5-10.1); CREATININE 1.8 mg/dL (0.6-1.0); GFR 34.6; PHOSPHORUS 5.1 mg/dL (2.6-4.7); POTASSIUM 4.2 mmol/L (3.5-5.1)
[2016-08-02 07:32] LABS: % BASOS 1 % (0-3)
[2016-08-02 07:33] LABS: ANISOCYTOSIS SLIGHT; PLT ESTIMATE DECREASED (ADEQUATE)
[2016-08-02] MEDS: FENTANYL STANDARD PCA 30 ML IV PRN ×2 (07:56→15:50)
[2016-08-02] MEDS: IPRATRPIUM/ALBUTEROL 0.5/2.5MG 3 ML NEBU. NEB SCH ×4 (08:21→20:49)
[2016-08-02 08:28] LABS: HCO3 ABG 28 mmol/L (21-28); PCO2 ABG 37 mmHg (35-46); PO2 ABG 89 mmHg (65-108); SAT O2 ABG 96 % (92-99)
[2016-08-02 08:29] LABS: FIO2 ABG 60
[2016-08-02] MEDS: TIGECYCLINE 50 MG in IV NORMAL SALINE 50ML 50 ML IV SCH ×2 (08:57→20:43)
[2016-08-02] MEDS: PANTOPRAZOLE IV PUSH 40 MG VIAL. IVP SCH (08:57)
--- NOTE | 2016-08-02 09:39 | PDOC ---
PROGRESS NOTES Subjective Subjective sedated on ventilator. on levophed and off of bicarbonate drip and dopamine and receiving TPN. making urine. lactic acid level high.lab reviewed. Objective Objective Vital Signs Date Time Temp Pulse Resp B/P Pulse Ox O2 Delivery O2 Flow Rate FiO2 08/02/16 08:16 97 Ventilator 08/02/16 06:00 96.8 82 24 108/58 96.8 08/01/16 04:00 96.0 Intake and Output 08/02/16 07:00 Intake Total 1975 ml Output Total 1420 ml Balance 555 ml IV Total 1078 ml Tube Feeding 627 ml Blood Product IV Normal Saline Flush 270 ml Output Urine Total 1420 ml Physical Exam Abdomen: Soft Heart: Regular rate, Normal S1, Normal S2 Extremities: Other (2 plus edema both arms) General: Other (sedated) HEENT: Atraumatic Lungs: Other (clear anteriorly) Neuro: Other (sedated) Psych/Mental Status: Other (sedated) Skin: No rashes Assessment Assessment Problems Medical Problems:ana glabrata fungemia with severe sepsis and shock acute hypoxic respiratory failure. intubated on ventilator metabolic encephalopathy acute kidney injury due to ATN from sepsis. . making urine now bilateral lung infiltrates. suspect pneumonia vs ARDS lactic acidosis thrombocytopenia due to sepsis picc associated fungemia with sepsis and shock 4. Enterocutaneous fistula. 5. Enterovesical fistula. 6. Anemia of chronic disease. 7. Moderately severe protein calorie malnutrition. 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 Labs Laboratory Tests Test 08/01/16 06:20 08/01/16 08:00 08/01/16 16:00 08/02/16 05:45 White Blood Count 10.7x10^3/uL (4.0-11.0) 14.5x10^3/uL (4.0-11.0) Red Blood Count 3.49x10^6/uL (3.50-5.40) 3.69x10^6/uL (3.50-5.40) Hemoglobin 8.9g/dL (12.0-15.5) 9.5g/dL (12.0-15.5) Hematocrit 27.4% (36.0-47.0) 29.1% (36.0-47.0) Mean Corpuscular Volume 79fL (79-100) 79fL (79-100) Mean Corpuscular Hemoglobin 26pg (25-35) 26pg (25-35) Mean Corpuscular Hemoglobin Concent 33g/dL (31-37) 33g/dL (31-37) Red Cell Distribution Width 19.8% (11.5-14.5) 20.0% (11.5-14.5) Platelet Count 56x10^3/uL (140-400) 46x10^3/uL (140-400) Sodium Level 140mmol/L (136-145) 142mmol/L (136-145) 144mmol/L (136-145) Potassium Level 2.9mmol/L (3.5-5.1) 3.2mmol/L (3.5-5.1) 4.2mmol/L (3.5-5.1) Chloride Level 98mmol/L (98-107) 101mmol/L (98-107) 103mmol/L (98-107) Carbon Dioxide Level 30mmol/L (21-32) 31mmol/L (21-32) 27mmol/L (21-32) Anion Gap 12 (6-14) 10 (6-14) 14 (6-14) Blood Urea Nitrogen 33mg/dL (7-20) 21mg/dL (7-20) 35mg/dL (7-20) Creatinine 1.9mg/dL (0.6-1.0) 1.4mg/dL (0.6-1.0) 1.8mg/dL (0.6-1.0) Estimated GFR (Cockcroft-Gault) 32.5 46.3 34.6 Glucose Level 96mg/dL (70-99) 61mg/dL (70-99) 204mg/dL (70-99) Calcium Level 8.0mg/dL (8.5-10.1) 8.1mg/dL (8.5-10.1) 7.7mg/dL (8.5-10.1) Phosphorus Level 3.0mg/dL (2.6-4.7) 5.1mg/dL (2.6-4.7) Magnesium Level 1.9mg/dL (1.8-2.4) 2.1mg/dL (1.8-2.4) Triglycerides Level 155mg/dL (0-150) O2 Saturation 94% (92-99) Arterial Blood pH 7.56 (7.35-7.45) Arterial Blood pCO2 at Patient Temp 33mmHg (35-46) Arterial Blood pO2 at Patient Temp 69mmHg (65-108) Arterial Blood HCO3 29mmol/L (21-28) Arterial Blood Base Excess 7mmol/L (-3-3) FiO2 80 Lactic Acid Level 4.3mmol/L (0.4-2.0) 5.4mmol/L (0.4-2.0) Neutrophils (%) (Auto) 79% (31-73) Lymphocytes (%) (Auto) 14% (24-48) Monocytes (%) (Auto) 6% (0-9) Eosinophils (%) (Auto) 0% (0-3) Basophils (%) (Auto) 1% (0-3) Neutrophils # (Auto) 11.5x10^3uL (1.8-7.7) Lymphocytes # (Auto) 2.0x10^3/uL (1.0-4.8) Monocytes # (Auto) 0.9x10^3/uL (0.0-1.1) Eosinophils # (Auto) 0.0x10^3/uL (0.0-0.7) Basophils # (Auto) 0.1x10^3/uL (0.0-0.2) Segmented Neutrophils % 77% (35-66) Band Neutrophils % 10% (0-9) Lymphocytes % 8% (24-48) Monocytes % 4% (0-10) Basophils % 1% (0-3) Platelet Estimate Decreased (ADEQUATE) Anisocytosis Slight Test 08/02/16 06:39 O2 Saturation 96% (92-99) Arterial Blood pH 7.50 (7.35-7.45) Arterial Blood pCO2 at Patient Temp 37mmHg (35-46) Arterial Blood pO2 at Patient Temp 89mmHg (65-108) Arterial Blood HCO3 28mmol/L (21-28) Arterial Blood Base Excess 4mmol/L (-3-3) FiO2 60 Laboratory Tests Test 08/01/16 16:00 08/02/16 05:45 08/02/16 06:39 Sodium Level 142mmol/L (136-145) 144mmol/L (136-145) Potassium Level 3.2mmol/L (3.5-5.1) 4.2mmol/L (3.5-5.1) Chloride Level 101mmol/L (98-107) 103mmol/L (98-107) Carbon Dioxide Level 31mmol/L (21-32) 27mmol/L (21-32) Anion Gap 10 (6-14) 14 (6-14) Blood Urea Nitrogen 21mg/dL (7-20) 35mg/dL (7-20) Creatinine 1.4mg/dL (0.6-1.0) 1.8mg/dL (0.6-1.0) Estimated GFR (Cockcroft-Gault) 46.3 34.6 Glucose Level 61mg/dL (70-99) 204mg/dL (70-99) Lactic Acid Level 4.3mmol/L (0.4-2.0) 5.4mmol/L (0.4-2.0) Calcium Level 8.1mg/dL (8.5-10.1) 7.7mg/dL (8.5-10.1) White Blood Count 14.5x10^3/uL (4.0-11.0) Red Blood Count 3.69x10^6/uL (3.50-5.40) Hemoglobin 9.5g/dL (12.0-15.5) Hematocrit 29.1% (36.0-47.0) Mean Corpuscular Volume 79fL (79-100) Mean Corpuscular Hemoglobin 26pg (25-35) Mean Corpuscular Hemoglobin Concent 33g/dL (31-37) Red Cell Distribution Width 20.0% (11.5-14.5) Platelet Count 46x10^3/uL (140-400) Neutrophils (%) (Auto) 79% (31-73) Lymphocytes (%) (Auto) 14% (24-48) Monocytes (%) (Auto) 6% (0-9) Eosinophils (%) (Auto) 0% (0-3) Basophils (%) (Auto) 1% (0-3) Neutrophils # (Auto) 11.5x10^3uL (1.8-7.7) Lymphocytes # (Auto) 2.0x10^3/uL (1.0-4.8) Monocytes # (Auto) 0.9x10^3/uL (0.0-1.1) Eosinophils # (Auto) 0.0x10^3/uL (0.0-0.7) Basophils # (Auto) 0.1x10^3/uL (0.0-0.2) Segmented Neutrophils % 77% (35-66) Band Neutrophils % 10% (0-9) Lymphocytes % 8% (24-48) Monocytes % 4% (0-10) Basophils % 1% (0-3) Platelet Estimate Decreased (ADEQUATE) Anisocytosis Slight Phosphorus Level 5.1mg/dL (2.6-4.7) Magnesium Level 2.1mg/dL (1.8-2.4) O2 Saturation 96% (92-99) Arterial Blood pH 7.50 (7.35-7.45) Arterial Blood pCO2 at Patient Temp 37mmHg (35-46) Arterial Blood pO2 at Patient Temp 89mmHg (65-108) Arterial Blood HCO3 28mmol/L (21-28) Arterial Blood Base Excess 4mmol/L (-3-3) FiO2 60 Microbiology 08/01/16 Blood Culture - Preliminary, Resulted NO GROWTH AFTER 1 DAY 07/15/16 Urine Culture - Final, Complete 07/15/16 Urine Culture Result 1 (ROYA) - Final, Complete 07/15/16 Urine Culture Result 2 (ROYA) - Final, Complete 07/15/16 Antimicrobic Susceptibility - Final, Complete 07/29/16 Aerobic Culture - Preliminary, Resulted 07/29/16 Aerobic Culture Result 1 (ROYA) - Preliminary, Resulted Medications Current Medications Piperacillin Sod/ Tazobactam Sod/ Sodium Chloride (Zosyn/Iv Sodium Chloride 0.9 % 100ml) 100 ml @ 200 mls/hr 1X ONCE IV Last administered on 07/15/16 22:56; Start 07/15/16 at 22:00; Stop 07/15/16 at 22:29; Status DC Fentanyl Citrate 50 mcg 50 mcg PRN Q15MIN PRN IV PAIN GREATER THAN 3/10 Last administered on 07/16/16 00:30; Start 07/15/16 at 21:45; Stop 07/16/16 at 02:00; Status DC Sodium Chloride 1,000 ml @ 1,000 mls/hr 1X ONCE IV Last administered on 21:59; Start 07/15/16 at 22:00; Stop 07/15/16 at 22:59; Status DC Sodium Chloride (Iv Sodium Chloride 0.9% 500ml Bag) 500 ml @ 500 mls/hr 1X ONCE IV Last administered on 07/15/16 22:00; Start 07/15/16 at 22:00; Stop at 22:59; Status DC Ondansetron HCl (Zofran) 4 mg PRN Q8HRS PRN IV NAUSEA/VOMITING; Start 07/15/16 at 23:30; Stop 07/16/16 at 08:52; Status DC Fentanyl Citrate 50 mcg 50 mcg PRN Q2HR PRN IV SEVERE PAIN Last administered on 07/16/16 08:10; Start 07/15/16 at 23:30; Stop 07/16/16 at 08:52; Status DC Sodium Chloride (Iv Sodium Chloride 0.9% 1000ml Bag) 1,000 ml @ 150 mls/hr Q6H40M IV Last administered on 07/15/16 02:00; Start 07/15/16 at 23:45; Stop 07/16/16 at 08:52; Status DC Acetaminophen (Tylenol) 650 mg PRN Q4HRS PRN PO FEVER; Start 07/15/16 at 23:30; Stop 07/16/16 at 23:29; Status DC Info (Do NOT chart on this placeholder) 1 each PRN DAILY PRN MC NEEDS VERIFICATION; Start 07/16/16 at 03:00; Status Cancel Acetaminophen 650 mg 650 mg PRN Q4HRS PRN PO MILD PAIN / TEMP Last administered on 07/28/16 07:42; Start 07/16/16 at 08:45; Stop 07/29/16 at 08:33 ; Status DC Piperacillin Sod/ Tazobactam Sod 3.375 gm/Sodium Chloride 50 ml @ 100 mls/hr Q6HRS IV Last administered on 07/18/16 05:50; Start 07/16/16 at 10:00; Stop 07/18 at 13:28; Status DC Linezolid (Zyvox Premix) 300 ml @ 300 mls/hr Q12HR IV Last administered on 07/18 08:34; Start 07/16/16 at 10:00; Stop 07/18/16 at 13:28; Status DC Hydromorphone HCl (Dilaudid) 2 mg PRN Q4HRS PRN IV MODERATE PAIN Last administered on 07/28/16 23:33; Start 07/16/16 at 08:45 Hydromorphone HCl (Dilaudid) 4 mg PRN Q4HRS PRN IV SEVERE PAIN Last administered on 07/30/16 09:23; Start 07/16/16 at 08:45; Stop 07/31/16 at 15:01 ; Status DC Pantoprazole Sodium (Protonix) 40 mg DAILYAC PO Last administered on 07/27/16 11:11; Start 07/16/16 at 09:30; Stop 07/29/16 at 08:44; Status DC Hyoscyamine (Anaspaz) 0.125 mg Q6HRS PO Last administered on 07/20/16 05:20; Start 07/16/16 at 12:00; Stop 07/20/16 at 08:58; Status DC Phenazopyridine HCl (Pyridium) 200 mg TID PO Last administered on 07/20/16 08: 25; Start 07/16/16 at 09:30; Stop 07/20/16 at 08:58; Status DC Lorazepam (Ativan) 0.5 mg PRN BID PRN PO ANXIETY / AGITATION Last administered on 07/29/16 02:16; Start 07/16/16 at 08:45; Stop 07/31/16 at 15:01; Status DC Simethicone (Gas-X) 80 mg PRN Q4HRS PRN PO GAS / BLOATING Last administered on 07/24/16 22:30; Start 07/16/16 at 08:45; Stop 07/31/16 at 15:01; Status DC Zolpidem Tartrate 5 mg 5 mg PRN QHS PRN PO INSOMNIA Last administered on 23:14; Start 07/16/16 at 08:45; Stop 07/31/16 at 15:01; Status DC Potassium Chloride/Dextrose/ Sod Cl 1,000 ml @ 80 mls/hr [id number] IV Last administered on 07/16/16 10:54; Start 07/16/16 at 09:30; Stop 07/16/16 at 21:59; Status DC Fluconazole/ Sodium Chloride (Diflucan 200mg/ 100ml Premix) 100 ml @ 100 mls/ hr Q24H IV Last administered on 07/18/16 11:43; Start 07/16/16 at 11:00; Stop at 13:28; Status DC Info 1 each 1 each PRN DAILY PRN MC SEE COMMENTS Last administered on 12:41; Start 07/16/16 at 10:00; Stop 08/01/16 at 11:24; Status DC Sodium Chloride 220 meq/Sodium Acetate 90 meq/ Potassium Chloride 50 meq/ Potassium Acetate 15 meq/Potassium Phosphate 10 mmol/ Magnesium Sulfate 50 meq/ Calcium Gluconate 6 meq/ Multivitamins/ Minerals 10 ml/ Chromium/Copper/ Manganese/Seleni/ Zn 1 ml/Total Parenteral Nutrition/Amino Acids/Dextro... 1, 920 ml @ 80 mls/hr TPN CONT IV ; Start 07/16/16 at 22:00; Stop 07/16/16 at 22:00 ; Status DC Sodium Chloride/ Sodium Acetate/ Potassium Chloride/ Potassium Acetate/ Potassium Phosphate/ Magnesium Sulfate/ Calcium Gluconate/ Multivitamins/ Minerals/Chromium/ Copper/Manganese/ Seleni/Zn/Total Parenteral Nutrition/Amino Acids/Dextrose/ Fat Emulsion Intravenous (Sodium Chlori... 1,820 ml @ 75.833 mls/ hr TPN CONT IV Last administered on 07/16/16 21:03; Start 07/16/16 at 22: 00; Stop 07/17/16 at 21:59; Status DC Ondansetron HCl (Zofran) 4 mg PRN Q6HRS PRN IV NAUSEA/VOMITING Last administered on 07/21/16 08:48; Start 07/16/16 at 17:15; Stop 07/31/16 at 15:01; Status DC Diphenhydramine HCl (Benadryl) 25 mg PRN Q6HRS PRN PO ITCHING Last administered on 07/25/16 23:38; Start 07/16/16 at 17:45; Stop 07/31/16 at 15:01 ; Status DC Lidocaine (Xylocaine) 1 sang BID TP Last administered on 08/01/16 20:57; Start 07/17/16 at 09:00 Zinc Oxide 1 sang 1 sang BID TP Last administered on 08/01/16 20:57; Start at 09:30 Sodium Chloride/ Sodium Acetate/ Potassium Chloride/ Potassium Acetate/ Potassium Phosphate/ Magnesium Sulfate/ Calcium Gluconate/ Multivitamins/ Minerals/Chromium/ Copper/Manganese/ Seleni/Zn/Total Parenteral Nutrition/Amino Acids/Dextrose/ Fat Emulsion Intravenous (Sodium Chlori... 1,920 ml @ 80 mls/ hr TPN CONT IV Last administered on 07/17/16 22:13; Start 07/17/16 at 22:00; Stop 07/18/16 at 21:59; Status DC Furosemide 40 mg 40 mg 1X ONCE IVP Last administered on 07/18/16 11:43; Start 07/18/16 at 11:00; Stop 07/18/16 at 11:07; Status DC Sodium Chloride 220 meq/Sodium Acetate 90 meq/ Potassium Chloride 50 meq/ Potassium Acetate 15 meq/Potassium Phosphate 10 mmol/ Magnesium Sulfate 50 meq/ Calcium Gluconate 3 meq/ Multivitamins/ Minerals 10 ml/ Chromium/Copper/ Manganese/Seleni/ Zn 1 ml/Total Parenteral Nutrition/Amino Acids/Dextro... 1, 920 ml @ 80 mls/hr TPN CONT IV Last administered on 07/19/16 00:03; Start 07/18/16 at 22:00; Stop 07/19/16 at 21:59; Status DC Meropenem 1 gm/ Sodium Chloride 100 ml @ 200 mls/hr Q8HRS IV Last administered on 07/20/16 05:21; Start 07/18/16 at 14:00; Stop 07/20/16 at 11:25; Status DC Micafungin Sodium 100 mg/Dextrose 100 ml @ 100 mls/hr Q24H IV Last administered on 07/19/16 15:05; Start 07/18/16 at 14:00; Stop 07/20/16 at 11:25; Status DC Daptomycin/Sodium Chloride (Cubicin/Iv Sodium Chloride 0.9% 50ml) 50 ml @ 100 mls/hr Q24H IV Last administered on 07/19/16 16:56; Start 07/18/16 at 15:00; Stop 07/20/16 at 11:25; Status DC Alteplase, Recombinant (Cathflo) 2 mg 1X ONCE INT CAT Last administered on 07/19 06:24; Start 07/19/16 at 07:00; Stop 07/19/16 at 07:01; Status DC Gentamicin Sulfate 1 each 1 each PRN DAILY PRN MC SEE COMMENTS Last administered on 07/25/16 15:31; Start 07/19/16 at 12:15; Stop 07/25/16 at 16:14 ; Status DC Gentamicin Sulfate/Sodium Chloride (Iv Sodium Chloride 0.9% 100ml) 106.75 ml @ 106.75 mls/hr Q24H IV Last administered on 07/25/16 15:31; Start 07/19/16 at 13 :00; Stop 07/25/16 at 16:12; Status DC Gentamicin Sulfate 1 each 1 each 1X ONCE MC Last administered on 07/19/16 23: 00; Start 07/19/16 at 23:00; Stop 07/19/16 at 23:01; Status DC Sodium Chloride/ Sodium Acetate/ Potassium Chloride/ Potassium Acetate/ Potassium Phosphate/ Magnesium Sulfate/ Calcium Gluconate/ Multivitamins/ Minerals/Chromium/ Copper/Manganese/ Seleni/Zn/Total Parenteral Nutrition/Amino Acids/Dextrose/ Fat Emulsion Intravenous (Sodium Chlori... 1,920 ml @ 80 mls/ hr TPN CONT IV Last administered on 07/19/16 20:51; Start 07/19/16 at 22:00; Stop 07/20/16 at 21:59; Status DC Hyoscyamine (Anaspaz) 0.125 mg PRN Q6HRS PRN PO BLADDER SPASM; Start 07/20/16 at 09:00; Stop 07/31/16 at 15:01; Status DC Phenazopyridine HCl 200 mg 200 mg PRN TID PRN PO BLADDER SPASM Last administered on 07/21/16 20:14; Start 07/20/16 at 09:00; Stop 07/31/16 at 15:01; Status DC Linezolid 300 ml @ 300 mls/hr Q12HR IV Last administered on 07/25/16 09:02; Start 07/20/16 at 12:00; Stop 07/25/16 at 16:12; Status DC Sodium Chloride 220 meq/Sodium Acetate 90 meq/ Potassium Chloride 50 meq/ Potassium Acetate 15 meq/Potassium Phosphate 10 mmol/ Magnesium Sulfate 50 meq/ Calcium Gluconate 3 meq/ Multivitamins/ Minerals 10 ml/ Chromium/Copper/ Manganese/Seleni/ Zn 1 ml/Total Parenteral Nutrition/Amino Acids/Dextro... 1, 920 ml @ 80 mls/hr TPN CONT IV Last administered on 07/20/16 21:30; Start 07/20/16 at 22:00; Stop 07/21/16 at 21:59; Status DC Sodium Chloride/ Sodium Acetate/ Potassium Chloride/ Potassium Acetate/ Potassium Phosphate/ Magnesium Sulfate/ Multivitamins/ Minerals/Chromium/ Copper /Manganese/ Seleni/Zn/Total Parenteral Nutrition/Amino Acids/Dextrose/ Fat Emulsion Intravenous (Sodium Chloride/ Potass... 1,920 ml @ 80 mls/hr TPN CONT IV Last administered on 07/21/16 22:05; Start 07/21/16 at 22:00; Stop at 21:59; Status DC Alteplase, Recombinant 2 mg 2 mg PRN DAILY PRN INT CAT INFLAMMATION Last administered on 07/27/16 11:31; Start 07/21/16 at 15:00 Sodium Chloride 220 meq/Sodium Acetate 90 meq/ Potassium Chloride 50 meq/ Potassium Acetate 15 meq/Potassium Phosphate 10 mmol/ Magnesium Sulfate 50 meq/ Multivitamins/ Minerals 10 ml/ Chromium/Copper/ Manganese/Seleni/ Zn 1 ml/Total Parenteral Nutrition/Amino Acids/Dextrose/ Fat Emuls... 1,920 ml @ 80 mls/hr TPN CONT IV Last administered on 07/22/16 20:53; Start 07/22/16 at 22:00; Stop 07/23/16 at 21:59; Status DC Sodium Chloride/ Sodium Acetate/ Potassium Chloride/ Potassium Acetate/ Potassium Phosphate/ Magnesium Sulfate/ Multivitamins/ Minerals/Chromium/ Copper /Manganese/ Seleni/Zn/Total Parenteral Nutrition/Amino Acids/Dextrose/ Fat Emulsion Intravenous (Sodium Chloride/ Potass... 1,920 ml @ 80 mls/hr TPN CONT IV Last administered on 07/23/16 21:16; Start 07/23/16 at 22:00; Stop 07/24 at 21:59; Status DC Gentamicin Sulfate 1 each 1 each 1X ONCE MC ; Start 07/23/16 at 22:00; Stop 07/23 at 22:01; Status Cancel Sodium Chloride/ Sodium Acetate/ Potassium Chloride/ Potassium Acetate/ Potassium Phosphate/ Magnesium Sulfate/ Multivitamins/ Minerals/Chromium/ Copper /Manganese/ Seleni/Zn/Total Parenteral Nutrition/Amino Acids/Dextrose/ Fat Emulsion Intravenous (Sodium Chloride/ Potass... 1,920 ml @ 80 mls/hr TPN CONT IV Last administered on 07/24/16 21:15; Start 07/24/16 at 22:00; Stop 04/30 at 21:59; Status DC Gentamicin Sulfate 1 each 1X ONCE MC ; Start 07/25/16 at 12:30; Stop 07/25/16 at 12:31; Status Cancel Amlodipine Besylate 5 mg 5 mg DAILY PO Last administered on 07/27/16 11:12; Start 07/25/16 at 12:00; Stop 07/29/16 at 08:44; Status DC Sodium Chloride 220 meq/Sodium Acetate 90 meq/ Potassium Chloride 30 meq/ Potassium Acetate 15 meq/Potassium Phosphate 10 mmol/ Magnesium Sulfate 50 meq/ Multivitamins/ Minerals 10 ml/ Chromium/Copper/ Manganese/Seleni/ Zn 1 ml/Total Parenteral Nutrition/Amino Acids/Dextrose/ Fat Emuls... 1,920 ml @ 80 mls/hr TPN CONT IV Last administered on 07/25/16 22:25; Start 07/25/16 at 22:00; Stop 07/26/16 at 21:59; Status DC Sodium Chloride/ Sodium Acetate/ Potassium Chloride/ Potassium Acetate/ Potassium Phosphate/ Magnesium Sulfate/ Multivitamins/ Minerals/Chromium/ Copper /Manganese/ Seleni/Zn/Total Parenteral Nutrition/Amino Acids/Dextrose/ Fat Emulsion Intravenous (Sodium Chloride/ Potass... 1,920 ml @ 80 mls/hr TPN CONT IV Last administered on 07/26/16 23:16; Start 07/26/16 at 22:00; Stop at 21:59; Status DC Furosemide 20 mg 20 mg 1X ONCE IVP Last administered on 07/27/16 11:31; Start 07/27/16 at 09:00; Stop 07/27/16 at 09:01; Status DC Daptomycin 340 mg/ Sodium Chloride 50 ml @ 100 mls/hr Q24H IV Last administered on 07/29/16 15:05; Start 07/27/16 at 13:00; Stop 07/30/16 at 07:25 ; Status DC Piperacillin Sod/ Tazobactam Sod 3.375 gm/Sodium Chloride 50 ml @ 100 mls/hr Q6HRS IV Last administered on 07/30/16 05:30; Start 07/27/16 at 12:30; Stop at 07:25; Status DC Fluconazole/ Sodium Chloride 100 ml @ 100 mls/hr Q24H IV Last administered on 07/28/16 13:32; Start 07/27/16 at 13:00; Stop 07/29/16 at 00:53; Status DC Sodium Chloride 1,000 ml @ 1,000 mls/hr 1X ONCE IV Last administered on 12:34; Start 07/27/16 at 12:30; Stop 07/27/16 at 13:29; Status DC Sodium Chloride 220 meq/Sodium Acetate 90 meq/ Potassium Chloride 30 meq/ Potassium Acetate 15 meq/Potassium Phosphate 10 mmol/ Magnesium Sulfate 45 meq/ Multivitamins/ Minerals 10 ml/ Chromium/Copper/ Manganese/Seleni/ Zn 1 ml/Total Parenteral Nutrition/Amino Acids/Dextrose/ Fat Emuls... 1,920 ml @ 80 mls/hr TPN CONT IV Last administered on 07/27/16 22:38; Start 07/27/16 at 22:00; Stop 07/28/16 at 21:59; Status DC Sodium Chloride (Iv Sodium Chloride 0.9% 1000ml Bag) 1,000 ml @ 45 mls/hr [id number] IV Last administered on 07/28/16 03:24; Start 07/27/16 at 17:00; Stop 07/28/16 at 10:27; Status DC Acetaminophen 650 mg 650 mg PRN Q6HRS PRN [facility] fever Last administered on 03:57; Start 07/27/16 at 16:30; Stop 07/29/16 at 08:33; Status DC Sodium Chloride 1,000 ml @ 427.5 mls/ hr Q2H21M IV Last administered on 19:30; Start 07/27/16 at 19:30; Stop 07/27/16 at 23:30; Status DC Sodium Chloride 220 meq/Sodium Acetate 90 meq/ Potassium Chloride 30 meq/ Potassium Acetate 15 meq/Potassium Phosphate 10 mmol/ Magnesium Sulfate 45 meq/ Multivitamins/ Minerals 10 ml/ Chromium/Copper/ Manganese/Seleni/ Zn 1 ml/Total Parenteral Nutrition/Amino Acids/Dextrose/ Fat Emuls... 1,920 ml @ 80 mls/hr TPN CONT IV Last administered on 07/28/16 21:43; Start 07/28/16 at 22:00; Stop 07/29/16 at 21:59; Status DC Micafungin Sodium/ Dextrose (Mycamine) 100 ml @ 100 mls/hr Q24H IV Last administered on 08/02/16 00:45; Start 07/29/16 at 01:00 Lorazepam (Ativan) 0.05 mg PRN Q4HRS PRN IV ANXIETY / AGITATION; Start at 02:30; Stop 07/29/16 at 02:48; Status DC Lorazepam (Ativan) 0.5 mg PRN Q4HRS PRN IV ANXIETY / AGITATION Last administered on 07/29/16 03:18; Start 07/29/16 at 03:00 Acetaminophen (Tylenol) 650 mg PRN Q4HRS PRN [place] MILD PAIN / TEMP; Start at 08:30 Ketorolac Tromethamine (Toradol) 30 mg PRN Q6HRS PRN IV PAIN/FEVER Last administered on 07/30/16 00:50; Start 07/29/16 at 08:30; Stop 07/30/16 at 13:01 ; Status DC Pantoprazole Sodium 40 mg 40 mg DAILYAC IVP Last administered on 08/02/16 08: 57; Start 07/29/16 at 09:00 Sodium Chloride 1,000 ml @ 45 mls/hr [id number] IV Last administered on 09:17; Start 07/29/16 at 08:45; Stop 07/31/16 at 15:01; Status DC Sodium Chloride/ Sodium Acetate/ Potassium Chloride/ Potassium Acetate/ Potassium Phosphate/ Magnesium Sulfate/ Multivitamins/ Minerals/Chromium/ Copper /Manganese/ Seleni/Zn/Total Parenteral Nutrition/Amino Acids/Dextrose/ Fat Emulsion Intravenous (Sodium Chloride/ Potass... 1,920 ml @ 80 mls/hr TPN CONT IV Last administered on 07/29/16 22:06; Start 07/29/16 at 22:00; Stop at 21:59; Status DC Lidocaine/Sodium Bicarbonate 20 ml 20 ml STK-MED ONCE IJ ; Start 07/29/16 at 13: 13; Stop 07/29/16 at 13:14; Status DC Heparin Sodium/ Sodium Chloride 500 ml @ As Directed STK-MED ONCE .ROUTE ; Start 07/29/16 at 13:13; Stop 07/29/16 at 13:14; Status DC Lidocaine/ Epinephrine (Xylocaine 1%-Epi 1:100,000) 20 ml STK-MED ONCE .ROUTE ; Start 07/29/16 at 13:22; Stop 07/29/16 at 13:23; Status DC Midazolam HCl (Versed) 5 mg STK-MED ONCE .ROUTE ; Start 07/29/16 at 13:32; Stop 07/29/16 at 13:33; Status DC Fentanyl Citrate (Fentanyl 5ml Vial) 250 mcg STK-MED ONCE .ROUTE ; Start at 13:32; Stop 07/29/16 at 13:33; Status DC Heparin Sodium/ Sodium Chloride 1,000 unit 1X ONCE IART Last administered on 13:45; Start 07/29/16 at 13:45; Stop 07/29/16 at 13:48; Status DC Midazolam HCl (Versed) 5 mg 1X ONCE IV Last administered on 07/29/16 13:45; Start 07/29/16 at 13:45; Stop 07/29/16 at 13:48; Status DC Fentanyl Citrate (Fentanyl 5ml Vial) 250 mcg 1X ONCE IV Last administered on 13:45; Start 07/29/16 at 13:45; Stop 07/29/16 at 13:48; Status DC Lidocaine/ Epinephrine 20 ml 20 ml 1X ONCE IJ Last administered on 07/29/16 13:45; Start 07/29/16 at 13:45; Stop 07/29/16 at 13:48; Status DC Sodium Chloride 220 meq/Sodium Acetate 90 meq/ Potassium Chloride 15 meq/ Potassium Acetate 30 meq/Potassium Phosphate 10 mmol/ Magnesium Sulfate 45 meq/ Multivitamins/ Minerals 10 ml/ Chromium/Copper/ Manganese/Seleni/ Zn 1 ml/Total Parenteral Nutrition/Amino Acids/Dextrose/ Fat Emuls... 1,920 ml @ 80 mls/hr TPN CONT IV ; Start 07/30/16 at 22:00; Stop 07/31/16 at 21:59; Status DC Norepinephrine Bitartrate 8 mg/ Sodium Chloride 258 ml @ 1.93 mls/hr 1X ONCE IV Last administered on 07/30/16 11:17; Start 07/30/16 at 11:15; Stop at 15:43; Status DC Norepinephrine Bitartrate/Sodium Chloride (Levophed Vial/ Iv Sodium Chloride 0.9 % 250ml) 258 ml @ 0 mls/hr CONT PRN IV SEE I/O RECORD Last administered on 08/02 00:45; Start 07/30/16 at 11:15 Furosemide 60 mg 60 mg 1X ONCE IVP Last administered on 07/30/16 11:14; Start 07/30/16 at 11:15; Stop 07/30/16 at 11:16; Status DC Sodium Chloride 500 ml @ 500 mls/hr Q1H IV Last administered on 07/30/16 17: 04; Start 07/30/16 at 14:30; Stop 07/30/16 at 15:29; Status DC Albumin Human 100 ml @ 100 mls/hr Q8HRS IV Last administered on 07/31/16 05: 37; Start 07/30/16 at 14:30; Stop 07/31/16 at 06:59; Status DC Furosemide/Sodium Chloride (Lasix Drip/Iv Sodium Chloride 0.9% 100ml) 100 ml @ 0 mls/hr CONT PRN IV SEE I/O RECORD Last administered on 07/31/16 03:17; Start 07/30/16 at 14:30; Stop 08/01/16 at 13:19; Status DC Ondansetron HCl (Zofran) 8 mg PRN Q8HRS PRN IV NAUSEA/VOMITING Last administered on 07/30/16 14:38; Start 07/30/16 at 14:30 Sodium Bicarbonate 50 meq 50 meq 1X ONCE IV Last administered on 07/30/16 14: 43; Start 07/30/16 at 14:30; Stop 07/30/16 at 14:31; Status DC Heparin Sodium/ Sodium Chloride 500 ml @ As Directed STK-MED ONCE .ROUTE ; Start 07/30/16 at 14:49; Stop 07/30/16 at 14:50; Status DC Lidocaine HCl 20 ml STK-MED ONCE .ROUTE ; Start 07/30/16 at 14:49; Stop at 14:50; Status DC Midazolam HCl (Versed) 2 mg STK-MED ONCE .ROUTE ; Start 07/30/16 at 15:19; Stop 07/30/16 at 15:20; Status DC Heparin Sodium/ Sodium Chloride 1,000 unit 1X ONCE IART Last administered on 15:44; Start 07/30/16 at 15:45; Stop 07/30/16 at 15:46; Status DC Midazolam HCl (Versed) 1.5 mg 1X ONCE IV Last administered on 07/30/16 15:44 ; Start 07/30/16 at 15:45; Stop 07/30/16 at 15:46; Status DC Lidocaine HCl 20 ml 1X ONCE IJ Last administered on 07/30/16 15:44; Start at 15:45; Stop 07/30/16 at 15:46; Status DC Heparin Sodium (Porcine) 87025 unit 10,000 unit STK-MED ONCE .ROUTE ; Start at 15:54; Stop 07/30/16 at 15:55; Status DC Fentanyl Citrate 30 ml @ 0 mls/hr CONT PRN PRN IV PROTOCOL Last administered on 08/02/16 07:56; Start 07/30/16 at 16:45 Sodium Bicarbonate/ Dextrose 1,150 ml @ 125 mls/hr 1X ONCE IV Last administered on 07/30/16 18:34; Start 07/30/16 at 17:30; Stop 07/31/16 at 02:41 ; Status DC Succinylcholine Chloride 200 mg 200 mg STK-MED ONCE .ROUTE ; Start 07/30/16 at 19:47; Stop 07/30/16 at 19:48; Status DC Propofol 100 ml @ As Directed STK-MED ONCE IV ; Start 07/30/16 at 19:48; Stop 07/30/16 at 19:49; Status DC Midazolam HCl (Versed 100mg/ 100ml Premix) 100 ml @ 0 mls/hr CONT PRN IV SEE I/ O RECORD Last administered on 08/02/16 00:29; Start 07/30/16 at 21:15 Sodium Bicarbonate 50 meq 50 meq 1X ONCE IV Last administered on 07/30/16 22: 15; Start 07/30/16 at 22:30; Stop 07/30/16 at 22:31; Status DC Dopamine HCl/ Dextrose 250 ml @ 11.513 mls/ hr CONT PRN IV SEE I/O RECORD Last administered on 07/31/16 20:16; Start 07/30/16 at 22:15 Sodium Bicarbonate/ Dextrose 1,150 ml @ 125 mls/hr Q9H12M IV Last administered on 08/01/16 09:30; Start 07/31/16 at 03:00; Stop 08/01/16 at 13:19 ; Status DC Propofol (Diprivan) 1,000 mg STK-MED ONCE IV ; Start 07/30/16 at 20:00; Stop at 08:16; Status DC Succinylcholine Chloride 200 mg 200 mg STK-MED ONCE .ROUTE ; Start 07/30/16 at 20:00; Stop 07/31/16 at 08:16; Status DC Tigecycline 50 mg/ Sodium Chloride 50 ml @ 100 mls/hr Q12HR IV Last administered on 08/02/16 08:57; Start 07/31/16 at 21:00 Tigecycline/ Sodium Chloride (Tygacil/Iv Sodium Chloride 0.9% 100ml) 100 ml @ 200 mls/hr 1X ONCE IV Last administered on 07/31/16 09:22; Start 07/31/16 at 09:00; Stop 07/31/16 at 09:29; Status DC Darbepoetin Sarbjit 60 mcg 60 mcg [id number] SQ Last administered on 07/31/16 21:09 ; Start 07/31/16 at 21:00 Albumin Human 100 ml @ 100 mls/hr 1X ONCE IV Last administered on 07/31/16 11:40; Start 07/31/16 at 11:15; Stop 07/31/16 at 12:14; Status DC Albumin Human 100 ml @ 100 mls/hr 1X ONCE IV Last administered on 07/31/16 12:03; Start 07/31/16 at 11:15; Stop 07/31/16 at 12:14; Status DC Sodium Chloride (Iv Sodium Chloride 0.9% 1000ml Bag) 1,000 ml @ 1,000 mls/hr Q1H PRN IV hypotension; Start 07/31/16 at 11:33; Stop 07/31/16 at 17:32; Status DC Info (PHARMACY MONITORING -- do not chart) 1 each PRN DAILY PRN MC SEE COMMENTS ; Start 07/31/16 at 11:45 Info (PHARMACY MONITORING -- do not chart) 1 each PRN DAILY PRN MC SEE COMMENTS ; Start 07/31/16 at 11:45; Status UNV Hydrocortisone Sodium Succinate (Solu-Cortef) 100 mg Q8HRS IV Last administered on 08/02/16 05:41; Start 08/01/16 at 07:00 Albuterol/ Ipratropium (Duoneb) 3 ml RTQID NEB Last administered on 08/02/16 08:21; Start 08/01/16 at 08:00 Albuterol/ Ipratropium 3 ml 3 ml STK-MED ONCE .ROUTE Last administered on 07:34; Start 08/01/16 at 06:59; Stop 08/01/16 at 07:00; Status DC Sodium Chloride 1,000 ml @ 1,000 mls/hr Q1H PRN IV hypotension; Start 08/01/16 at 06:57; Stop 08/01/16 at 12:56; Status DC Albumin Human (Albuminar) 200 ml @ 200 mls/hr 1X PRN PRN IV Hypotension; Start 08/01/16 at 07:00; Stop 08/01/16 at 12:59; Status DC Info (PHARMACY MONITORING -- do not chart) 1 each PRN DAILY PRN MC SEE COMMENTS ; Start 08/01/16 at 07:00; Status UNV Info 1 each 1 each PRN DAILY PRN MC SEE COMMENTS Last administered on 15:23; Start 08/01/16 at 13:30 Sodium Chloride 220 meq/Sodium Acetate 90 meq/ Potassium Chloride 15 meq/ Potassium Acetate 30 meq/Potassium Phosphate 10 mmol/ Magnesium Sulfate 45 meq/ Multivitamins/ Minerals 10 ml/ Chromium/Copper/ Manganese/Seleni/ Zn 1 ml/Total Parenteral Nutrition/Amino Acids/Dextrose/ Fat Emuls... 1,920 ml @ 80 mls/hr TPN CONT IV Last administered on 08/01/16 21:56; Start 08/01/16 at 22:00; Stop 08/02/16 at 21:59 Potassium Chloride (KCl Premix 20meq) 50 ml @ 50 mls/hr Q1H IV Last administered on 08/01/16 19:05; Start 08/01/16 at 17:00; Stop 08/01/16 at 18:59 ; Status DC Active Scripts Active Dilaudid (Hydromorphone Hcl) 4 Mg Tablet 4 Mg PO Q6HRS Phenazopyridine Hcl 200 Mg Tablet 200 Mg PO PRN TID PRN FENTANYL 50mcg/hr (Fentanyl) 1 Each Patch.td72 1 Patch TD Q3DAYS Anaspaz (Hyoscyamine Sulfate) 0.125 Mg Tab.rapdis 0.125 Mg PO Q6HRS PRN Cefpodoxime Proxetil 200 Mg Tablet 200 Mg PO BID Sertraline Hcl 50 Mg Tablet 100 Mg PO DAILY 30 Days Protonix (Pantoprazole Sodium) 40 Mg Tablet.dr 1 Tab PO DAILY Zinc Oxide 56.7 Gm Oint...g. 1 Sang TP BID Lidocaine 35.44 Gm Oint...g. 1 Sang TP BID Ondansetron Odt (Ondansetron) 4 Mg Tab.rapdis 8 Mg PO PRN Q8HRS PRN Gas-X (Simethicone) 80 Mg Tab.chew 80 Mg PO PRN QID PRN Reported Lorazepam 0.5 Mg Tablet 0.5 Mg PO PRN BID PRN Vitals/I & O Vital Sign - Last 24 Hours 08/01/16 08/01/16 08/01/16 08/01/16 10:00 10:00 10:13 11:00 Temp 98.2 98.2 Pulse 99 99 99 Resp 24 24 B/P 119/58 119/58 144/62 Pulse Ox 98 98 99 O2 Delivery Ventilator 2/18/17 2/18/17 2/18/17 2/18/17 11:00 12:00 12:00 12:00 Pulse 84 94 94 Resp 24 B/P 144/62 136/56 73/47 Pulse Ox 96 O2 Delivery Mechanical Ventilator 2/18/17 2/18/17 2/18/17 2/18/17 12:01 13:00 13:00 13:29 Pulse 100 100 Resp 24 24 B/P 130/62 137/67 Pulse Ox 96 95 95 O2 Delivery Ventilator Ventilator 2/18/17 2/18/17 2/18/17 2/18/17 14:00 14:00 14:40 15:00 Pulse 98 98 96 Resp 24 B/P 131/68 116/60 134/66 Pulse Ox 95 97 O2 Delivery Ventilator 2/18/17 2/18/17 2/18/17 2/18/17 15:00 16:00 16:00 16:00 Temp 100.0 100.0 Pulse 96 98 98 Resp 24 24 B/P 139/76 110/54 84/55 Pulse Ox 94 94 O2 Delivery Mechanical Ventilator 2/18/17 2/18/17 2/18/17 2/18/17 16:26 17:00 17:00 17:57 Pulse 94 94 Resp 24 B/P 99/61 118/58 Pulse Ox 94 99 94 O2 Delivery Ventilator Ventilator 2/18/17 2/18/17 2/18/17 2/18/17 18:00 18:00 19:00 19:00 Temp 100.0 100.0 Pulse 96 96 96 97 Resp 24 24 B/P 110/62 126/62 101/55 Pulse Ox 98 98 O2 Delivery Ventilator 2/18/17 2/18/17 2/18/17 2/18/17 19:51 20:00 20:44 20:47 Temp 99.5 99.5 Pulse 98 97 Resp 24 B/P 106/57 Pulse Ox 98 98 O2 Delivery Ventilator Mechanical Ventilator Ventilator 2/18/17 2/18/17 2/18/17 2/18/17 21:00 21:00 21:30 22:00 Temp 99.3 99.1 99.3 99.1 Pulse 97 96 92 Resp 24 24 B/P 109/57 110/59 112/58 Pulse Ox 98 98 98 O2 Delivery Ventilator Ventilator Ventilator 08/01/16 08/01/16 08/01/16 08/01/16 22:00 23:00 23:00 23:35 Temp 97.3 97.3 Pulse 92 92 92 Resp 24 B/P 114/50 Pulse Ox 94 98 O2 Delivery Ventilator Ventilator 08/01/16 08/02/16 08/02/16 08/02/16 23:39 00:00 00:00 00:00 Temp 97.2 97.2 Pulse 78 78 Resp 24 24 B/P 118/58 Pulse Ox 98 O2 Delivery Ventilator Mechanical Ventilator Ventilator 08/02/16 08/02/16 08/02/16 08/02/16 00:09 01:00 01:00 01:30 Temp 97.2 97.2 Pulse 82 82 Resp 24 24 B/P 108/56 Pulse Ox 99 98 98 O2 Delivery Ventilator Ventilator Ventilator 08/02/16 08/02/16 08/02/16 08/02/16 02:00 02:00 03:00 03:00 Temp 97.2 97.3 97.2 97.3 Pulse 85 85 84 84 Resp 24 24 B/P 126/63 128/62 128/62 Pulse Ox 98 99 O2 Delivery Ventilator Ventilator 08/02/16 08/02/16 08/02/16 08/02/16 03:40 04:00 04:00 04:00 Temp 97.2 97.2 Pulse 82 82 Resp 24 B/P 124/62 124/62 Pulse Ox 98 99 O2 Delivery Ventilator Mechanical Ventilator Ventilator 08/02/16 08/02/16 08/02/16 08/02/16 05:00 05:00 05:27 06:00 Temp 97.2 97.2 Pulse 82 82 79 Resp 24 B/P 128/64 128/64 109/59 Pulse Ox 97 97 O2 Delivery Ventilator Ventilator 08/02/16 08/02/16 08/02/16 06:00 07:56 08:16 Temp 96.8 96.8 Pulse 82 Resp 24 B/P 108/58 Pulse Ox 97 97 97 O2 Delivery Ventilator Ventilator Ventilator Intake and Output 08/01/16 08/01/16 08/02/16 15:00 23:00 07:00 Intake Total 50 ml 1925 ml Output Total 850 ml 420 ml 150 ml Balance -850 ml -370 ml 1775 ml BENITA LUTZ MD Aug 02, 2016 09:39
--- NOTE | 2016-08-02 10:16 | PDOC ---
Infectious Disease Note Subjective Subjective Sedated Intubated. FiO2 50% Hypotensive. Levophed 12 mcg No fever TPN + UO ROS ROS Unobtainable Vital Sign Vital Signs Vital Signs Date Time Temp Pulse Resp B/P Pulse Ox O2 Delivery O2 Flow Rate FiO2 08/02/16 09:34 97 Ventilator 08/02/16 06:00 96.8 82 24 108/58 96.8 Physical Exam PHYSICAL EXAM GENERAL: Intubated and sedated HEENT: Pupils constricted. ETT. OGT LUNGS: Clear HEART: S1S2, no gallop, no murmur. Distal DP palpable ABD: Soft, BS present, + fistula : [place] EXT: Generalized edema. [employer]: Alert, oriented x 3, no focal neurologic deficit SKIN: No rash Nontunneled PICC, HDC & femoral swans cath. clean Labs Lab Laboratory Tests Test 08/01/16 16:00 08/02/16 05:45 08/02/16 06:39 Sodium Level 142mmol/L (136-145) 144mmol/L (136-145) Potassium Level 3.2mmol/L (3.5-5.1) 4.2mmol/L (3.5-5.1) Chloride Level 101mmol/L (98-107) 103mmol/L (98-107) Carbon Dioxide Level 31mmol/L (21-32) 27mmol/L (21-32) Anion Gap 10 (6-14) 14 (6-14) Blood Urea Nitrogen 21mg/dL (7-20) 35mg/dL (7-20) Creatinine 1.4mg/dL (0.6-1.0) 1.8mg/dL (0.6-1.0) Estimated GFR (Cockcroft-Gault) 46.3 34.6 Glucose Level 61mg/dL (70-99) 204mg/dL (70-99) Lactic Acid Level 4.3mmol/L (0.4-2.0) 5.4mmol/L (0.4-2.0) Calcium Level 8.1mg/dL (8.5-10.1) 7.7mg/dL (8.5-10.1) White Blood Count 14.5x10^3/uL (4.0-11.0) Red Blood Count 3.69x10^6/uL (3.50-5.40) Hemoglobin 9.5g/dL (12.0-15.5) Hematocrit 29.1% (36.0-47.0) Mean Corpuscular Volume 79fL (79-100) Mean Corpuscular Hemoglobin 26pg (25-35) Mean Corpuscular Hemoglobin Concent 33g/dL (31-37) Red Cell Distribution Width 20.0% (11.5-14.5) Platelet Count 46x10^3/uL (140-400) Neutrophils (%) (Auto) 79% (31-73) Lymphocytes (%) (Auto) 14% (24-48) Monocytes (%) (Auto) 6% (0-9) Eosinophils (%) (Auto) 0% (0-3) Basophils (%) (Auto) 1% (0-3) Neutrophils # (Auto) 11.5x10^3uL (1.8-7.7) Lymphocytes # (Auto) 2.0x10^3/uL (1.0-4.8) Monocytes # (Auto) 0.9x10^3/uL (0.0-1.1) Eosinophils # (Auto) 0.0x10^3/uL (0.0-0.7) Basophils # (Auto) 0.1x10^3/uL (0.0-0.2) Segmented Neutrophils % 77% (35-66) Band Neutrophils % 10% (0-9) Lymphocytes % 8% (24-48) Monocytes % 4% (0-10) Basophils % 1% (0-3) Platelet Estimate Decreased (ADEQUATE) Anisocytosis Slight Phosphorus Level 5.1mg/dL (2.6-4.7) Magnesium Level 2.1mg/dL (1.8-2.4) O2 Saturation 96% (92-99) Arterial Blood pH 7.50 (7.35-7.45) Arterial Blood pCO2 at Patient Temp 37mmHg (35-46) Arterial Blood pO2 at Patient Temp 89mmHg (65-108) Arterial Blood HCO3 28mmol/L (21-28) Arterial Blood Base Excess 4mmol/L (-3-3) FiO2 60 Micro 2/18. 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 The chart was reviewed. The case was discussed. Agree with the plan of care. MAYELIN COLEMAN APRN Aug 02, 2016 10:16 ABBY MOTT MD Aug 02, 2016 13:17
--- NOTE | 2016-08-02 10:28 | RAD ---
Indication respiratory failure. A single view of the chest was obtained and is compared to a study one day earlier. There has not been a significant change. Pulmonary infiltrates persist. Right central line and nasogastric tube are noted. Endotracheal tube is appropriately positioned above the deborah. [place]-Vero catheter is again noted IMPRESSION: Persistent pulmonary infiltrates. No significant change. Various support tubes and catheters appear appropriately positioned
[2016-08-02] MEDS: LIDOCAINE 5% TOPICAL OINTMENT 35GM TUBE. TP SCH ×2 (11:13→20:46)
[2016-08-02] MEDS: ZINC OXIDE 20% TOPICAL OINTMENT 28GM TUBE. TP SCH ×2 (11:13→20:46)
[2016-08-02] MEDS ORDERED: INSULIN ASPART 300 UNITS/3 ML INSULN.PEN SQ SCH (12:00)
--- NOTE | 2016-08-02 12:01 | PDOC ---
SUBJECTIVE ROS JULIO C/ ATN UO is now dwindling, currently hypothermic OBJECTIVE Vital Signs Vital Signs Date Time Temp Pulse Resp B/P Pulse Ox O2 Delivery O2 Flow Rate FiO2 08/02/16 11:00 95.5 78 20 126/60 93 Ventilator 95.5 08/02/16 08:26 50.0 I & 0 Intake and Output 08/02/16 07:00 Intake Total 1975 ml Output Total 1420 ml Balance 555 ml IV Total 1078 ml Tube Feeding 627 ml Blood Product IV Normal Saline Flush 270 ml Output Urine Total 1420 ml PHYSICAL EXAM Physical Exam GEN: SEdated and intubated, In no distress EYES: Vision Unchanged, Conjunctiva Normal EN: No EN Drainage, Mucous Membranes moist NECK: ? JVD, + JVP, Supple, no Thyromegaly CVS: S1S2, ? Murmur, No Gallop, No Rub,+2 Edema RESP: no Rales, no Rhonchi,no Acc. 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 Remains on Hydrocortisone ANEMIA; Aranesp as ordered, Transfuse with next HD as needed SEpsis/ Shock - on Pressors, Hydrocortisone, Filling pressures appear to be OK baed on CVP and PAD, EF is Good - May need CRRT if we are unable to maintain S. pH/ oxygenation and / or fluid balance with HD alone HypoTN: ct Pressors for now Low K - suspect due to Hydrocort - watch on TPN, replace as needed. Off of LAsix currenlty Edema/ Anasarca - Fluid removal was difficult on HD due to tenous Hemodynamix and so may need CRRT; - will initiate Diuresis once Hemodynamically more stable Resp Failure - CXR with CHF, ? ARDS/ Pulm edema - Uf as nicole on HD or CRRT Met Acidosis (resolved) ^ Lactate trending UP too - reassess for CRRT if unable to maintain S. pH with daily HD alone - watch off of Bicarb gtt forn ow. ph was 7.5 this am Discussed Plan of Care with RN at bedside COMMENT/RELEVANT DATA Meds Current Medications Medications (Trade) Dose Ordered Sig/Alex Start Time Stop Time Status Last Admin Dose Admin Acetaminophen (Tylenol) 650 mg PRN Q4HRS PRN 07/29/16 08:30 Acetaminophen 650 mg 650 mg PRN Q6HRS PRN 07/27/16 16:30 07/29/16 08:33 DC 07/29/16 03:57 650 MG Albumin Human (Albuminar) 200 ml @ 200 mls/hr 1X PRN PRN 08/01/16 07:00 08/01/16 12:59 DC Albuterol/ Ipratropium (Duoneb) 3 ml RTQID 08/01/16 08:00 08/02/16 08:21 3 ML Albuterol/ Ipratropium 3 ml 3 ml STK-MED ONCE 08/01/16 06:59 08/01/16 07:00 DC 08/01/16 07:34 3 ML Alteplase, Recombinant (Cathflo) 2 mg PRN DAILY PRN 07/21/16 15:00 07/27/16 11:31 2 MG Amlodipine Besylate (Norvasc) 5 mg DAILY 07/25/16 12:00 07/29/16 08:44 DC 07/27/16 11:12 5 MG Daptomycin 340 mg/ Sodium Chloride 50 ml @ 100 mls/hr Q24H 07/27/16 13:00 07/30/16 07:25 DC 07/29/16 15:05 100 MLS/HR Daptomycin/Sodium Chloride (Cubicin/Iv Sodium Chloride 0.9% 50ml) 50 ml @ 100 mls/hr Q24H 07/18/16 15:00 07/20/16 11:25 DC 07/19/16 16:56 100 MLS/HR Darbepoetin Sarbjit 60 mcg 60 mcg WEEKLYHS 07/31/16 21:00 07/31/16 21:09 60 MCG Diphenhydramine HCl (Benadryl) 25 mg PRN Q6HRS PRN 07/16/16 17:45 07/31/16 15:01 DC 07/25/16 23:38 25 MG Dopamine HCl/ Dextrose 250 ml @ 11.513 mls/ hr CONT PRN 07/30/16 22:15 07/31/16 20:16 11.513 MLS/HR Fentanyl Citrate 30 ml @ 0 mls/hr CONT PRN PRN 07/30/16 16:45 08/02/16 07:56 3.75 MLS/HR Fentanyl Citrate (Fentanyl 5ml Vial) 250 mcg 1X ONCE 07/29/16 13:45 07/29/16 13:48 DC 07/29/16 13:45 50 MCG Fentanyl Citrate 50 mcg 50 mcg PRN Q2HR PRN 07/15/16 23:30 07/16/16 08:52 DC 07/16/16 08:10 50 MCG Fluconazole/ Sodium Chloride (Diflucan 200mg/ 100ml Premix) 100 ml @ 100 mls/hr Q24H 07/27/16 13:00 07/29/16 00:53 DC 07/28/16 13:32 100 MLS/HR Furosemide 20 mg 20 mg 1X ONCE 07/27/16 09:00 07/27/16 09:01 DC 07/27/16 11:31 20 MG Furosemide 40 mg 40 mg 1X ONCE 07/18/16 11:00 07/18/16 11:07 DC 07/18/16 11:43 40 MG Furosemide 60 mg 60 mg 1X ONCE 07/30/16 11:15 07/30/16 11:16 DC 07/30/16 11:14 60 MG Furosemide/Sodium Chloride (Lasix Drip/Iv Sodium Chloride 0.9% 100ml) 100 ml @ 0 mls/hr CONT PRN 07/30/16 14:30 08/01/16 13:19 DC 07/31/16 03:17 10 MLS/HR Gentamicin Sulfate 1 each 1 each PRN DAILY PRN 07/19/16 12:15 07/25/16 16:14 DC 07/25/16 15:31 1 EACH Gentamicin Sulfate/Sodium Chloride (Iv Sodium Chloride 0.9% 100ml) 106.75 ml @ 106.75 mls/hr Q24H 07/19/16 13:00 07/25/16 16:12 DC 07/25/16 15:31 106.75 MLS/HR Gentamicin Sulfate 1 each 1X ONCE 07/25/16 12:30 07/25/16 12:31 Cancel Heparin Sodium (Porcine) 03385 unit 10,000 unit STK-MED ONCE 07/30/16 15:54 07/30/16 15:55 DC Heparin Sodium/ Sodium Chloride 1,000 unit 1X ONCE 07/30/16 15:45 07/30/16 15:46 DC 07/30/16 15:44 1,000 UNIT Hydrocortisone Sodium Succinate (Solu-Cortef) 100 mg Q8HRS 08/01/16 07:00 08/02/16 05:41 100 MG Hydromorphone HCl (Dilaudid) 4 mg PRN Q4HRS PRN 07/16/16 08:45 07/31/16 15:01 DC 07/30/16 09:23 4 MG Hyoscyamine (Anaspaz) 0.125 mg PRN Q6HRS PRN 07/20/16 09:00 07/31/16 15:01 DC Info (PHARMACY MONITORING -- do not chart) 1 each PRN DAILY PRN 08/01/16 07:00 UNV Info 1 each 1 each PRN DAILY PRN 08/01/16 13:30 08/01/16 15:23 1 EACH Insulin Aspart (Novolog) 0-6 UNITS TIDWMEALS 08/02/16 12:00 08/02/16 11:33 1 UNITS Ketorolac Tromethamine (Toradol) 30 mg PRN Q6HRS PRN 07/29/16 08:30 07/30/16 13:01 DC 07/30/16 00:50 30 MG Lidocaine (Xylocaine) 1 nallely BID 07/17/16 09:00 08/02/16 11:13 1 NALLELY Lidocaine HCl 20 ml 1X ONCE 07/30/16 15:45 07/30/16 15:46 DC 07/30/16 15:44 20 ML Lidocaine/ Epinephrine (Xylocaine 1%-Epi 1:100,000) 20 ml STK-MED ONCE 07/29/16 13:22 07/29/16 13:23 DC Lidocaine/ Epinephrine 20 ml 20 ml 1X ONCE 07/29/16 13:45 07/29/16 13:48 DC 07/29/16 13:45 9 ML Lidocaine/Sodium Bicarbonate (Buffered Lidocaine 1%) 20 ml STK-MED ONCE 07/29/16 13:13 07/29/16 13:14 DC Linezolid 300 ml @ 300 mls/hr Q12HR 07/20/16 12:00 07/25/16 16:12 DC 07/25/16 09:02 300 MLS/HR Linezolid (Zyvox Premix) 300 ml @ 300 mls/hr Q12HR 07/16/16 10:00 07/18/16 13:28 DC 07/18/16 08:34 300 MLS/HR Lorazepam (Ativan) 0.5 mg PRN Q4HRS PRN 07/29/16 03:00 07/29/16 03:18 0.5 MG Meropenem 1 gm/ Sodium Chloride 100 ml @ 200 mls/hr Q8HRS 07/18/16 14:00 07/20/16 11:25 DC 07/20/16 05:21 200 MLS/HR Micafungin Sodium 100 mg/Dextrose 100 ml @ 100 mls/hr Q24H 07/18/16 14:00 07/20/16 11:25 DC 07/19/16 15:05 100 MLS/HR Micafungin Sodium/ Dextrose (Mycamine) 100 ml @ 100 mls/hr Q24H 07/29/16 01:00 08/02/16 00:45 100 MLS/HR Midazolam HCl (Versed 100mg/ 100ml Premix) 100 ml @ 0 mls/hr CONT PRN 07/30/16 21:15 08/02/16 00:29 6 MLS/HR Midazolam HCl (Versed) 1.5 mg 1X ONCE 07/30/16 15:45 07/30/16 15:46 DC 07/30/16 15:44 1.5 MG Norepinephrine Bitartrate 8 mg/ Sodium Chloride 258 ml @ 1.93 mls/hr 1X ONCE 07/30/16 11:15 07/30/16 15:43 DC 07/30/16 11:17 9.38 MLS/HR Norepinephrine Bitartrate/Sodium Chloride (Levophed Vial/ Iv Sodium Chloride 0.9% 250ml) 258 ml @ 0 mls/hr CONT PRN 07/30/16 11:15 08/02/16 00:45 23.22 MLS/HR Ondansetron HCl (Zofran) 8 mg PRN Q8HRS PRN 07/30/16 14:30 07/30/16 14:38 8 MG Pantoprazole Sodium (Protonix) 40 mg DAILYAC 07/16/16 09:30 07/29/16 08:44 DC 07/27/16 11:11 40 MG Pantoprazole Sodium 40 mg 40 mg DAILYAC 07/29/16 09:00 08/02/16 08:57 40 MG Phenazopyridine HCl (Pyridium) 200 mg TID 07/16/16 09:30 07/20/16 08:58 DC 07/20/16 08:25 200 MG Phenazopyridine HCl 200 mg 200 mg PRN TID PRN 07/20/16 09:00 07/31/16 15:01 DC 07/21/16 20:14 200 MG Piperacillin Sod/ Tazobactam Sod 3.375 gm/Sodium Chloride 50 ml @ 100 mls/hr Q6HRS 07/27/16 12:30 07/30/16 07:25 DC 07/30/16 05:30 100 MLS/HR Piperacillin Sod/ Tazobactam Sod 4.5 gm/Sodium Chloride 100 ml @ 200 mls/hr 1X ONCE 07/15/16 22:00 07/15/16 22:29 DC 07/15/16 22:56 200 MLS/HR Potassium Chloride/Dextrose/ Sod Cl (KCl 20 Meq In D5W-06/15 NS) 1,000 ml @ 80 mls/hr [id number] 07/16/16 09:30 07/16/16 21:59 DC 07/16/16 10:54 80 MLS/HR Potassium Chloride (KCl Premix 20meq) 50 ml @ 50 mls/hr Q1H 08/01/16 17:00 08/01/16 18:59 DC 08/01/16 19:05 50 MLS/HR Propofol (Diprivan) 1,000 mg STK-MED ONCE 07/30/16 20:00 07/31/16 08:16 DC Simethicone (Gas-X) 80 mg PRN Q4HRS PRN 07/16/16 08:45 07/31/16 15:01 DC 07/24/16 22:30 80 MG Sodium Bicarbonate 150 meq/Dextrose 1,150 ml @ 125 mls/hr 1X ONCE 07/30/16 17:30 07/31/16 02:41 DC 07/30/16 18:34 125 MLS/HR Sodium Bicarbonate 50 meq 50 meq 1X ONCE 07/30/16 22:30 07/30/16 22:31 DC 07/30/16 22:15 50 MEQ Sodium Bicarbonate/ Dextrose 1,150 ml @ 125 mls/hr Q9H12M 07/31/16 03:00 08/01/16 13:19 DC 08/01/16 09:30 125 MLS/HR Sodium Bicarbonate 50 meq 1X ONCE 07/30/16 14:30 07/30/16 14:31 DC 07/30/16 14:43 50 MEQ Sodium Chloride (Iv Sodium Chloride 0.9% 500ml Bag) 500 ml @ 500 mls/hr 1X ONCE 07/15/16 22:00 07/15/16 22:59 DC 07/15/16 22:00 500 MLS/HR Sodium Chloride (Iv Sodium Chloride 0.9% 1000ml Bag) 1,000 ml @ 1,000 mls/hr Q1H PRN 07/31/16 11:33 07/31/16 17:32 DC Sodium Chloride 220 meq/Sodium Acetate 90 meq/ Potassium Chloride 15 meq/ Potassium Acetate 30 meq/Potassium Phosphate 10 mmol/ Magnesium Sulfate 45 meq/ Multivitamins/ Minerals 10 ml/ Chromium/Copper/ Manganese/Seleni/ Zn 1 ml/Total Parenteral Nutrition/Amino Acids/Dextrose/ Fat Emuls... 1,920 ml @ 80 mls/hr TPN CONT 08/01/16 22:00 08/02/16 21:59 08/01/16 21:56 80 MLS/HR Sodium Chloride 220 meq/Sodium Acetate 90 meq/ Potassium Chloride 30 meq/ Potassium Acetate 15 meq/Potassium Phosphate 10 mmol/ Magnesium Sulfate 45 meq/ Multivitamins/ Minerals 10 ml/ Chromium/Copper/ Manganese/Seleni/ Zn 1 ml/Total Parenteral Nutrition/Amino Acids/Dextrose/ Fat Emuls... 1,920 ml @ 80 mls/hr TPN CONT 07/28/16 22:00 07/29/16 21:59 DC 07/28/16 21:43 80 MLS/HR Sodium Chloride 220 meq/Sodium Acetate 90 meq/ Potassium Chloride 50 meq/ Potassium Acetate 15 meq/Potassium Phosphate 10 mmol/ Magnesium Sulfate 50 meq/Calcium Gluconate 3 meq/ Multivitamins/ Minerals 10 ml/ Chromium/Copper/ Manganese/Seleni/ Zn 1 ml/Total Parenteral Nutrition/Amino Acids/Dextro... 1,920 ml @ 80 mls/hr TPN CONT 07/18/16 22:00 07/19/16 21:59 DC 07/19/16 00:03 80 MLS/HR Sodium Chloride/ Sodium Acetate/ Potassium Chloride/ Potassium Acetate/ Potassium Phosphate/ Magnesium Sulfate/ Calcium Gluconate/ Multivitamins/ Minerals/Chromium/ Copper/Manganese/ Seleni/Zn/Total Parenteral Nutrition/Amino Acids/Dextrose/ Fat Emulsion Intravenous (Sodium Chlori... 1,920 ml @ 80 mls/hr TPN CONT 07/20/16 22:00 07/21/16 21:59 DC 07/20/16 21:30 80 MLS/HR Sodium Chloride/ Sodium Acetate/ Potassium Chloride/ Potassium Acetate/ Potassium Phosphate/ Magnesium Sulfate/ Multivitamins/ Minerals/Chromium/ Copper/Manganese/ Seleni/Zn/Total Parenteral Nutrition/Amino Acids/Dextrose/ Fat Emulsion Intravenous (Sodium Chloride/ Potass... 1,920 ml @ 80 mls/hr TPN CONT 07/29/16 22:00 07/30/16 21:59 DC 07/29/16 22:06 80 MLS/HR Succinylcholine Chloride 200 mg 200 mg STK-MED ONCE 07/30/16 20:00 07/31/16 08:16 DC Tigecycline 50 mg/ Sodium Chloride 50 ml @ 100 mls/hr Q12HR 07/31/16 21:00 08/02/16 08:57 100 MLS/HR Tigecycline/ Sodium Chloride (Tygacil/Iv Sodium Chloride 0.9% 100ml) 100 ml @ 200 mls/hr 1X ONCE 07/31/16 09:00 07/31/16 09:29 DC 07/31/16 09:22 200 MLS/HR Zinc Oxide 1 nallely BID 07/17/16 09:30 08/02/16 11:13 1 NALLELY Zolpidem Tartrate 5 mg 5 mg PRN QHS PRN 07/16/16 08:45 07/31/16 15:01 DC 07/26/16 23:14 5 MG Lab Laboratory Tests Test 08/01/16 16:00 08/02/16 05:45 08/02/16 06:39 08/02/16 11:16 Sodium Level 142mmol/L (136-145) 144mmol/L (136-145) Potassium Level 3.2mmol/L (3.5-5.1) 4.2mmol/L (3.5-5.1) Chloride Level 101mmol/L (98-107) 103mmol/L (98-107) Carbon Dioxide Level 31mmol/L (21-32) 27mmol/L (21-32) Anion Gap 10 (6-14) 14 (6-14) Blood Urea Nitrogen 21mg/dL (7-20) 35mg/dL (7-20) Creatinine 1.4mg/dL (0.6-1.0) 1.8mg/dL (0.6-1.0) Estimated GFR (Cockcroft-Gault) 46.3 34.6 Glucose Level 61mg/dL (70-99) 204mg/dL (70-99) Lactic Acid Level 4.3mmol/L (0.4-2.0) 5.4mmol/L (0.4-2.0) Calcium Level 8.1mg/dL (8.5-10.1) 7.7mg/dL (8.5-10.1) White Blood Count 14.5x10^3/uL (4.0-11.0) Red Blood Count 3.69x10^6/uL (3.50-5.40) Hemoglobin 9.5g/dL (12.0-15.5) Hematocrit 29.1% (36.0-47.0) Mean Corpuscular Volume 79fL (79-100) Mean Corpuscular Hemoglobin 26pg (25-35) Mean Corpuscular Hemoglobin Concent 33g/dL (31-37) Red Cell Distribution Width 20.0% (11.5-14.5) Platelet Count 46x10^3/uL (140-400) Neutrophils (%) (Auto) 79% (31-73) Lymphocytes (%) (Auto) 14% (24-48) Monocytes (%) (Auto) 6% (0-9) Eosinophils (%) (Auto) 0% (0-3) Basophils (%) (Auto) 1% (0-3) Neutrophils # (Auto) 11.5x10^3uL (1.8-7.7) Lymphocytes # (Auto) 2.0x10^3/uL (1.0-4.8) Monocytes # (Auto) 0.9x10^3/uL (0.0-1.1) Eosinophils # (Auto) 0.0x10^3/uL (0.0-0.7) Basophils # (Auto) 0.1x10^3/uL (0.0-0.2) Segmented Neutrophils % 77% (35-66) Band Neutrophils % 10% (0-9) Lymphocytes % 8% (24-48) Monocytes % 4% (0-10) Basophils % 1% (0-3) Platelet Estimate Decreased (ADEQUATE) Anisocytosis Slight Phosphorus Level 5.1mg/dL (2.6-4.7) Magnesium Level 2.1mg/dL (1.8-2.4) O2 Saturation 96% (92-99) Arterial Blood pH 7.50 (7.35-7.45) Arterial Blood pCO2 at Patient Temp 37mmHg (35-46) Arterial Blood pO2 at Patient Temp 89mmHg (65-108) Arterial Blood HCO3 28mmol/L (21-28) Arterial Blood Base Excess 4mmol/L (-3-3) FiO2 60 Glucose (Fingerstick) 191mg/dL (70-99) LATOSHA TATUM MD Aug 02, 2016 12:01
[2016-08-02 12:33] LABS: FREE T4 0.96 ng/dL (0.76-1.46)
[2016-08-02] MEDS: TPN PER PHARMACY MC PRN (12:45)
[2016-08-02] MEDS ORDERED: NORMAL SALINE IV ONE (15:00)
[2016-08-02] MEDS ORDERED: DAPTOMYCIN IV ONE (15:00)
--- NOTE | 2016-08-02 15:30 | PDOC ---
PROGRESS NOTES Subjective Subjective Patient intubated and sedated Objective Objective Vital Signs Date Time Temp Pulse Resp B/P Pulse Ox O2 Delivery O2 Flow Rate FiO2 08/02/16 15:00 96.6 82 20 97/54 95 Ventilator 96.6 08/02/16 08:26 50.0 Intake and Output 08/02/16 07:00 Intake Total 1975 ml Output Total 1420 ml Balance 555 ml IV Total 1078 ml Tube Feeding 627 ml Blood Product IV Normal Saline Flush 270 ml Output Urine Total 1420 ml Physical Exam Physical Exam No significant changes in cardiac exam Assessment Assessment Her blood pressure seems to be doing better. I agree with present plan. Problems Medical Problems: (1) Abdominal pain Status: Acute (2) Enterocutaneous fistula Status: Acute (3) Sepsis Status: Acute (4) Urinary tract infection Status: Acute (5) UTI (urinary tract infection) Status: Acute Comment Review of Relevant I have reviewed the following items lucila (where applicable) has been applied. Labs Laboratory Tests Test 08/01/16 06:20 08/01/16 08:00 08/01/16 16:00 08/02/16 05:45 White Blood Count 10.7x10^3/uL (4.0-11.0) 14.5x10^3/uL (4.0-11.0) Red Blood Count 3.49x10^6/uL (3.50-5.40) 3.69x10^6/uL (3.50-5.40) Hemoglobin 8.9g/dL (12.0-15.5) 9.5g/dL (12.0-15.5) Hematocrit 27.4% (36.0-47.0) 29.1% (36.0-47.0) Mean Corpuscular Volume 79fL (79-100) 79fL (79-100) Mean Corpuscular Hemoglobin 26pg (25-35) 26pg (25-35) Mean Corpuscular Hemoglobin Concent 33g/dL (31-37) 33g/dL (31-37) Red Cell Distribution Width 19.8% (11.5-14.5) 20.0% (11.5-14.5) Platelet Count 56x10^3/uL (140-400) 46x10^3/uL (140-400) Sodium Level 140mmol/L (136-145) 142mmol/L (136-145) 144mmol/L (136-145) Potassium Level 2.9mmol/L (3.5-5.1) 3.2mmol/L (3.5-5.1) 4.2mmol/L (3.5-5.1) Chloride Level 98mmol/L (98-107) 101mmol/L (98-107) 103mmol/L (98-107) Carbon Dioxide Level 30mmol/L (21-32) 31mmol/L (21-32) 27mmol/L (21-32) Anion Gap 12 (6-14) 10 (6-14) 14 (6-14) Blood Urea Nitrogen 33mg/dL (7-20) 21mg/dL (7-20) 35mg/dL (7-20) Creatinine 1.9mg/dL (0.6-1.0) 1.4mg/dL (0.6-1.0) 1.8mg/dL (0.6-1.0) Estimated GFR (Cockcroft-Gault) 32.5 46.3 34.6 Glucose Level 96mg/dL (70-99) 61mg/dL (70-99) 204mg/dL (70-99) Calcium Level 8.0mg/dL (8.5-10.1) 8.1mg/dL (8.5-10.1) 7.7mg/dL (8.5-10.1) Phosphorus Level 3.0mg/dL (2.6-4.7) 5.1mg/dL (2.6-4.7) Magnesium Level 1.9mg/dL (1.8-2.4) 2.1mg/dL (1.8-2.4) Triglycerides Level 155mg/dL (0-150) O2 Saturation 94% (92-99) Arterial Blood pH 7.56 (7.35-7.45) Arterial Blood pCO2 at Patient Temp 33mmHg (35-46) Arterial Blood pO2 at Patient Temp 69mmHg (65-108) Arterial Blood HCO3 29mmol/L (21-28) Arterial Blood Base Excess 7mmol/L (-3-3) FiO2 80 Lactic Acid Level 4.3mmol/L (0.4-2.0) 5.4mmol/L (0.4-2.0) Neutrophils (%) (Auto) 79% (31-73) Lymphocytes (%) (Auto) 14% (24-48) Monocytes (%) (Auto) 6% (0-9) Eosinophils (%) (Auto) 0% (0-3) Basophils (%) (Auto) 1% (0-3) Neutrophils # (Auto) 11.5x10^3uL (1.8-7.7) Lymphocytes # (Auto) 2.0x10^3/uL (1.0-4.8) Monocytes # (Auto) 0.9x10^3/uL (0.0-1.1) Eosinophils # (Auto) 0.0x10^3/uL (0.0-0.7) Basophils # (Auto) 0.1x10^3/uL (0.0-0.2) Segmented Neutrophils % 77% (35-66) Band Neutrophils % 10% (0-9) Lymphocytes % 8% (24-48) Monocytes % 4% (0-10) Basophils % 1% (0-3) Platelet Estimate Decreased (ADEQUATE) Anisocytosis Slight Thyroid Stimulating Hormone (TSH) 0.509uIU/mL (0.358-3.74) Free Thyroxine 0.96ng/dL (0.76-1.46) Test 08/02/16 06:39 08/02/16 11:16 O2 Saturation 96% (92-99) Arterial Blood pH 7.50 (7.35-7.45) Arterial Blood pCO2 at Patient Temp 37mmHg (35-46) Arterial Blood pO2 at Patient Temp 89mmHg (65-108) Arterial Blood HCO3 28mmol/L (21-28) Arterial Blood Base Excess 4mmol/L (-3-3) FiO2 60 Glucose (Fingerstick) 191mg/dL (70-99) Laboratory Tests Test 08/01/16 16:00 08/02/16 05:45 08/02/16 06:39 08/02/16 11:16 Sodium Level 142mmol/L (136-145) 144mmol/L (136-145) Potassium Level 3.2mmol/L (3.5-5.1) 4.2mmol/L (3.5-5.1) Chloride Level 101mmol/L (98-107) 103mmol/L (98-107) Carbon Dioxide Level 31mmol/L (21-32) 27mmol/L (21-32) Anion Gap 10 (6-14) 14 (6-14) Blood Urea Nitrogen 21mg/dL (7-20) 35mg/dL (7-20) Creatinine 1.4mg/dL (0.6-1.0) 1.8mg/dL (0.6-1.0) Estimated GFR (Cockcroft-Gault) 46.3 34.6 Glucose Level 61mg/dL (70-99) 204mg/dL (70-99) Lactic Acid Level 4.3mmol/L (0.4-2.0) 5.4mmol/L (0.4-2.0) Calcium Level 8.1mg/dL (8.5-10.1) 7.7mg/dL (8.5-10.1) White Blood Count 14.5x10^3/uL (4.0-11.0) Red Blood Count 3.69x10^6/uL (3.50-5.40) Hemoglobin 9.5g/dL (12.0-15.5) Hematocrit 29.1% (36.0-47.0) Mean Corpuscular Volume 79fL (79-100) Mean Corpuscular Hemoglobin 26pg (25-35) Mean Corpuscular Hemoglobin Concent 33g/dL (31-37) Red Cell Distribution Width 20.0% (11.5-14.5) Platelet Count 46x10^3/uL (140-400) Neutrophils (%) (Auto) 79% (31-73) Lymphocytes (%) (Auto) 14% (24-48) Monocytes (%) (Auto) 6% (0-9) Eosinophils (%) (Auto) 0% (0-3) Basophils (%) (Auto) 1% (0-3) Neutrophils # (Auto) 11.5x10^3uL (1.8-7.7) Lymphocytes # (Auto) 2.0x10^3/uL (1.0-4.8) Monocytes # (Auto) 0.9x10^3/uL (0.0-1.1) Eosinophils # (Auto) 0.0x10^3/uL (0.0-0.7) Basophils # (Auto) 0.1x10^3/uL (0.0-0.2) Segmented Neutrophils % 77% (35-66) Band Neutrophils % 10% (0-9) Lymphocytes % 8% (24-48) Monocytes % 4% (0-10) Basophils % 1% (0-3) Platelet Estimate Decreased (ADEQUATE) Anisocytosis Slight Phosphorus Level 5.1mg/dL (2.6-4.7) Magnesium Level 2.1mg/dL (1.8-2.4) Thyroid Stimulating Hormone (TSH) 0.509uIU/mL (0.358-3.74) Free Thyroxine 0.96ng/dL (0.76-1.46) O2 Saturation 96% (92-99) Arterial Blood pH 7.50 (7.35-7.45) Arterial Blood pCO2 at Patient Temp 37mmHg (35-46) Arterial Blood pO2 at Patient Temp 89mmHg (65-108) Arterial Blood HCO3 28mmol/L (21-28) Arterial Blood Base Excess 4mmol/L (-3-3) FiO2 60 Glucose (Fingerstick) 191mg/dL (70-99) Microbiology 08/01/16 Blood Culture - Preliminary, Resulted NO GROWTH AFTER 1 DAY 07/15/16 Urine Culture - Final, Complete 07/15/16 Urine Culture Result 1 (ROYA) - Final, Complete 07/15/16 Urine Culture Result 2 (ROYA) - Final, Complete 07/15/16 Antimicrobic Susceptibility - Final, Complete 07/29/16 Aerobic Culture - Final, Complete 07/29/16 Aerobic Culture Result 1 (ROYA) - Final, Complete Medications Current Medications Piperacillin Sod/ Tazobactam Sod/ Sodium Chloride (Zosyn/Iv Sodium Chloride 0.9 % 100ml) 100 ml @ 200 mls/hr 1X ONCE IV Last administered on 07/15/16 22:56; Start 07/15/16 at 22:00; Stop 07/15/16 at 22:29; Status DC Fentanyl Citrate 50 mcg 50 mcg PRN Q15MIN PRN IV PAIN GREATER THAN 3/10 Last administered on 07/16/16 00:30; Start 07/15/16 at 21:45; Stop 07/16/16 at 02:00; Status DC Sodium Chloride 1,000 ml @ 1,000 mls/hr 1X ONCE IV Last administered on 21:59; Start 07/15/16 at 22:00; Stop 07/15/16 at 22:59; Status DC Sodium Chloride (Iv Sodium Chloride 0.9% 500ml Bag) 500 ml @ 500 mls/hr 1X ONCE IV Last administered on 07/15/16 22:00; Start 07/15/16 at 22:00; Stop at 22:59; Status DC Ondansetron HCl (Zofran) 4 mg PRN Q8HRS PRN IV NAUSEA/VOMITING; Start 07/15/16 at 23:30; Stop 07/16/16 at 08:52; Status DC Fentanyl Citrate 50 mcg 50 mcg PRN Q2HR PRN IV SEVERE PAIN Last administered on 07/16/16 08:10; Start 07/15/16 at 23:30; Stop 07/16/16 at 08:52; Status DC Sodium Chloride (Iv Sodium Chloride 0.9% 1000ml Bag) 1,000 ml @ 150 mls/hr Q6H40M IV Last administered on 07/15/16 02:00; Start 07/15/16 at 23:45; Stop 07/16/16 at 08:52; Status DC Acetaminophen (Tylenol) 650 mg PRN Q4HRS PRN PO FEVER; Start 07/15/16 at 23:30; Stop 07/16/16 at 23:29; Status DC Info (Do NOT chart on this placeholder) 1 each PRN DAILY PRN MC NEEDS VERIFICATION; Start 07/16/16 at 03:00; Status Cancel Acetaminophen 650 mg 650 mg PRN Q4HRS PRN PO MILD PAIN / TEMP Last administered on 07/28/16 07:42; Start 07/16/16 at 08:45; Stop 07/29/16 at 08:33 ; Status DC Piperacillin Sod/ Tazobactam Sod 3.375 gm/Sodium Chloride 50 ml @ 100 mls/hr Q6HRS IV Last administered on 07/18/16 05:50; Start 07/16/16 at 10:00; Stop 07/18 at 13:28; Status DC Linezolid (Zyvox Premix) 300 ml @ 300 mls/hr Q12HR IV Last administered on 07/18 08:34; Start 07/16/16 at 10:00; Stop 07/18/16 at 13:28; Status DC Hydromorphone HCl (Dilaudid) 2 mg PRN Q4HRS PRN IV MODERATE PAIN Last administered on 07/28/16 23:33; Start 07/16/16 at 08:45 Hydromorphone HCl (Dilaudid) 4 mg PRN Q4HRS PRN IV SEVERE PAIN Last administered on 07/30/16 09:23; Start 07/16/16 at 08:45; Stop 07/31/16 at 15:01 ; Status DC Pantoprazole Sodium (Protonix) 40 mg DAILYAC PO Last administered on 07/27/16 11:11; Start 07/16/16 at 09:30; Stop 07/29/16 at 08:44; Status DC Hyoscyamine (Anaspaz) 0.125 mg Q6HRS PO Last administered on 07/20/16 05:20; Start 07/16/16 at 12:00; Stop 07/20/16 at 08:58; Status DC Phenazopyridine HCl (Pyridium) 200 mg TID PO Last administered on 07/20/16 08: 25; Start 07/16/16 at 09:30; Stop 07/20/16 at 08:58; Status DC Lorazepam (Ativan) 0.5 mg PRN BID PRN PO ANXIETY / AGITATION Last administered on 07/29/16 02:16; Start 07/16/16 at 08:45; Stop 07/31/16 at 15:01; Status DC Simethicone (Gas-X) 80 mg PRN Q4HRS PRN PO GAS / BLOATING Last administered on 07/24/16 22:30; Start 07/16/16 at 08:45; Stop 07/31/16 at 15:01; Status DC Zolpidem Tartrate 5 mg 5 mg PRN QHS PRN PO INSOMNIA Last administered on 23:14; Start 07/16/16 at 08:45; Stop 07/31/16 at 15:01; Status DC Potassium Chloride/Dextrose/ Sod Cl 1,000 ml @ 80 mls/hr [id number] IV Last administered on 07/16/16 10:54; Start 07/16/16 at 09:30; Stop 07/16/16 at 21:59; Status DC Fluconazole/ Sodium Chloride (Diflucan 200mg/ 100ml Premix) 100 ml @ 100 mls/ hr Q24H IV Last administered on 07/18/16 11:43; Start 07/16/16 at 11:00; Stop at 13:28; Status DC Info 1 each 1 each PRN DAILY PRN MC SEE COMMENTS Last administered on 12:41; Start 07/16/16 at 10:00; Stop 08/01/16 at 11:24; Status DC Sodium Chloride 220 meq/Sodium Acetate 90 meq/ Potassium Chloride 50 meq/ Potassium Acetate 15 meq/Potassium Phosphate 10 mmol/ Magnesium Sulfate 50 meq/ Calcium Gluconate 6 meq/ Multivitamins/ Minerals 10 ml/ Chromium/Copper/ Manganese/Seleni/ Zn 1 ml/Total Parenteral Nutrition/Amino Acids/Dextro... 1, 920 ml @ 80 mls/hr TPN CONT IV ; Start 07/16/16 at 22:00; Stop 07/16/16 at 22:00 ; Status DC Sodium Chloride/ Sodium Acetate/ Potassium Chloride/ Potassium Acetate/ Potassium Phosphate/ Magnesium Sulfate/ Calcium Gluconate/ Multivitamins/ Minerals/Chromium/ Copper/Manganese/ Seleni/Zn/Total Parenteral Nutrition/Amino Acids/Dextrose/ Fat Emulsion Intravenous (Sodium Chlori... 1,820 ml @ 75.833 mls/ hr TPN CONT IV Last administered on 07/16/16 21:03; Start 07/16/16 at 22: 00; Stop 07/17/16 at 21:59; Status DC Ondansetron HCl (Zofran) 4 mg PRN Q6HRS PRN IV NAUSEA/VOMITING Last administered on 07/21/16 08:48; Start 07/16/16 at 17:15; Stop 07/31/16 at 15:01; Status DC Diphenhydramine HCl (Benadryl) 25 mg PRN Q6HRS PRN PO ITCHING Last administered on 07/25/16 23:38; Start 07/16/16 at 17:45; Stop 07/31/16 at 15:01 ; Status DC Lidocaine (Xylocaine) 1 sang BID TP Last administered on 08/02/16 11:13; Start 07/17/16 at 09:00 Zinc Oxide 1 sang 1 sang BID TP Last administered on 08/02/16 11:13; Start at 09:30 Sodium Chloride/ Sodium Acetate/ Potassium Chloride/ Potassium Acetate/ Potassium Phosphate/ Magnesium Sulfate/ Calcium Gluconate/ Multivitamins/ Minerals/Chromium/ Copper/Manganese/ Seleni/Zn/Total Parenteral Nutrition/Amino Acids/Dextrose/ Fat Emulsion Intravenous (Sodium Chlori... 1,920 ml @ 80 mls/ hr TPN CONT IV Last administered on 07/17/16 22:13; Start 07/17/16 at 22:00; Stop 07/18/16 at 21:59; Status DC Furosemide 40 mg 40 mg 1X ONCE IVP Last administered on 07/18/16 11:43; Start 07/18/16 at 11:00; Stop 07/18/16 at 11:07; Status DC Sodium Chloride 220 meq/Sodium Acetate 90 meq/ Potassium Chloride 50 meq/ Potassium Acetate 15 meq/Potassium Phosphate 10 mmol/ Magnesium Sulfate 50 meq/ Calcium Gluconate 3 meq/ Multivitamins/ Minerals 10 ml/ Chromium/Copper/ Manganese/Seleni/ Zn 1 ml/Total Parenteral Nutrition/Amino Acids/Dextro... 1, 920 ml @ 80 mls/hr TPN CONT IV Last administered on 07/19/16 00:03; Start 07/18/16 at 22:00; Stop 07/19/16 at 21:59; Status DC Meropenem 1 gm/ Sodium Chloride 100 ml @ 200 mls/hr Q8HRS IV Last administered on 07/20/16 05:21; Start 07/18/16 at 14:00; Stop 07/20/16 at 11:25; Status DC Micafungin Sodium 100 mg/Dextrose 100 ml @ 100 mls/hr Q24H IV Last administered on 07/19/16 15:05; Start 07/18/16 at 14:00; Stop 07/20/16 at 11:25; Status DC Daptomycin/Sodium Chloride (Cubicin/Iv Sodium Chloride 0.9% 50ml) 50 ml @ 100 mls/hr Q24H IV Last administered on 07/19/16 16:56; Start 07/18/16 at 15:00; Stop 07/20/16 at 11:25; Status DC Alteplase, Recombinant (Cathflo) 2 mg 1X ONCE INT CAT Last administered on 07/19 06:24; Start 07/19/16 at 07:00; Stop 07/19/16 at 07:01; Status DC Gentamicin Sulfate 1 each 1 each PRN DAILY PRN MC SEE COMMENTS Last administered on 07/25/16 15:31; Start 07/19/16 at 12:15; Stop 07/25/16 at 16:14 ; Status DC Gentamicin Sulfate/Sodium Chloride (Iv Sodium Chloride 0.9% 100ml) 106.75 ml @ 106.75 mls/hr Q24H IV Last administered on 07/25/16 15:31; Start 07/19/16 at 13 :00; Stop 07/25/16 at 16:12; Status DC Gentamicin Sulfate 1 each 1 each 1X ONCE MC Last administered on 07/19/16 23: 00; Start 07/19/16 at 23:00; Stop 07/19/16 at 23:01; Status DC Sodium Chloride/ Sodium Acetate/ Potassium Chloride/ Potassium Acetate/ Potassium Phosphate/ Magnesium Sulfate/ Calcium Gluconate/ Multivitamins/ Minerals/Chromium/ Copper/Manganese/ Seleni/Zn/Total Parenteral Nutrition/Amino Acids/Dextrose/ Fat Emulsion Intravenous (Sodium Chlori... 1,920 ml @ 80 mls/ hr TPN CONT IV Last administered on 07/19/16 20:51; Start 07/19/16 at 22:00; Stop 07/20/16 at 21:59; Status DC Hyoscyamine (Anaspaz) 0.125 mg PRN Q6HRS PRN PO BLADDER SPASM; Start 07/20/16 at 09:00; Stop 07/31/16 at 15:01; Status DC Phenazopyridine HCl 200 mg 200 mg PRN TID PRN PO BLADDER SPASM Last administered on 07/21/16 20:14; Start 07/20/16 at 09:00; Stop 07/31/16 at 15:01; Status DC Linezolid 300 ml @ 300 mls/hr Q12HR IV Last administered on 07/25/16 09:02; Start 07/20/16 at 12:00; Stop 07/25/16 at 16:12; Status DC Sodium Chloride 220 meq/Sodium Acetate 90 meq/ Potassium Chloride 50 meq/ Potassium Acetate 15 meq/Potassium Phosphate 10 mmol/ Magnesium Sulfate 50 meq/ Calcium Gluconate 3 meq/ Multivitamins/ Minerals 10 ml/ Chromium/Copper/ Manganese/Seleni/ Zn 1 ml/Total Parenteral Nutrition/Amino Acids/Dextro... 1, 920 ml @ 80 mls/hr TPN CONT IV Last administered on 07/20/16 21:30; Start 07/20/16 at 22:00; Stop 07/21/16 at 21:59; Status DC Sodium Chloride/ Sodium Acetate/ Potassium Chloride/ Potassium Acetate/ Potassium Phosphate/ Magnesium Sulfate/ Multivitamins/ Minerals/Chromium/ Copper /Manganese/ Seleni/Zn/Total Parenteral Nutrition/Amino Acids/Dextrose/ Fat Emulsion Intravenous (Sodium Chloride/ Potass... 1,920 ml @ 80 mls/hr TPN CONT IV Last administered on 07/21/16 22:05; Start 07/21/16 at 22:00; Stop at 21:59; Status DC Alteplase, Recombinant 2 mg 2 mg PRN DAILY PRN INT CAT INFLAMMATION Last administered on 07/27/16 11:31; Start 07/21/16 at 15:00 Sodium Chloride 220 meq/Sodium Acetate 90 meq/ Potassium Chloride 50 meq/ Potassium Acetate 15 meq/Potassium Phosphate 10 mmol/ Magnesium Sulfate 50 meq/ Multivitamins/ Minerals 10 ml/ Chromium/Copper/ Manganese/Seleni/ Zn 1 ml/Total Parenteral Nutrition/Amino Acids/Dextrose/ Fat Emuls... 1,920 ml @ 80 mls/hr TPN CONT IV Last administered on 07/22/16 20:53; Start 07/22/16 at 22:00; Stop 07/23/16 at 21:59; Status DC Sodium Chloride/ Sodium Acetate/ Potassium Chloride/ Potassium Acetate/ Potassium Phosphate/ Magnesium Sulfate/ Multivitamins/ Minerals/Chromium/ Copper /Manganese/ Seleni/Zn/Total Parenteral Nutrition/Amino Acids/Dextrose/ Fat Emulsion Intravenous (Sodium Chloride/ Potass... 1,920 ml @ 80 mls/hr TPN CONT IV Last administered on 07/23/16 21:16; Start 07/23/16 at 22:00; Stop 07/24 at 21:59; Status DC Gentamicin Sulfate 1 each 1 each 1X ONCE MC ; Start 07/23/16 at 22:00; Stop 07/23 at 22:01; Status Cancel Sodium Chloride/ Sodium Acetate/ Potassium Chloride/ Potassium Acetate/ Potassium Phosphate/ Magnesium Sulfate/ Multivitamins/ Minerals/Chromium/ Copper /Manganese/ Seleni/Zn/Total Parenteral Nutrition/Amino Acids/Dextrose/ Fat Emulsion Intravenous (Sodium Chloride/ Potass... 1,920 ml @ 80 mls/hr TPN CONT IV Last administered on 07/24/16 21:15; Start 07/24/16 at 22:00; Stop 04/30 at 21:59; Status DC Gentamicin Sulfate 1 each 1X ONCE MC ; Start 07/25/16 at 12:30; Stop 07/25/16 at 12:31; Status Cancel Amlodipine Besylate 5 mg 5 mg DAILY PO Last administered on 07/27/16 11:12; Start 07/25/16 at 12:00; Stop 07/29/16 at 08:44; Status DC Sodium Chloride 220 meq/Sodium Acetate 90 meq/ Potassium Chloride 30 meq/ Potassium Acetate 15 meq/Potassium Phosphate 10 mmol/ Magnesium Sulfate 50 meq/ Multivitamins/ Minerals 10 ml/ Chromium/Copper/ Manganese/Seleni/ Zn 1 ml/Total Parenteral Nutrition/Amino Acids/Dextrose/ Fat Emuls... 1,920 ml @ 80 mls/hr TPN CONT IV Last administered on 07/25/16 22:25; Start 07/25/16 at 22:00; Stop 07/26/16 at 21:59; Status DC Sodium Chloride/ Sodium Acetate/ Potassium Chloride/ Potassium Acetate/ Potassium Phosphate/ Magnesium Sulfate/ Multivitamins/ Minerals/Chromium/ Copper /Manganese/ Seleni/Zn/Total Parenteral Nutrition/Amino Acids/Dextrose/ Fat Emulsion Intravenous (Sodium Chloride/ Potass... 1,920 ml @ 80 mls/hr TPN CONT IV Last administered on 07/26/16 23:16; Start 07/26/16 at 22:00; Stop at 21:59; Status DC Furosemide 20 mg 20 mg 1X ONCE IVP Last administered on 07/27/16 11:31; Start 07/27/16 at 09:00; Stop 07/27/16 at 09:01; Status DC Daptomycin 340 mg/ Sodium Chloride 50 ml @ 100 mls/hr Q24H IV Last administered on 07/29/16 15:05; Start 07/27/16 at 13:00; Stop 07/30/16 at 07:25 ; Status DC Piperacillin Sod/ Tazobactam Sod 3.375 gm/Sodium Chloride 50 ml @ 100 mls/hr Q6HRS IV Last administered on 07/30/16 05:30; Start 07/27/16 at 12:30; Stop at 07:25; Status DC Fluconazole/ Sodium Chloride 100 ml @ 100 mls/hr Q24H IV Last administered on 07/28/16 13:32; Start 07/27/16 at 13:00; Stop 07/29/16 at 00:53; Status DC Sodium Chloride 1,000 ml @ 1,000 mls/hr 1X ONCE IV Last administered on 12:34; Start 07/27/16 at 12:30; Stop 07/27/16 at 13:29; Status DC Sodium Chloride 220 meq/Sodium Acetate 90 meq/ Potassium Chloride 30 meq/ Potassium Acetate 15 meq/Potassium Phosphate 10 mmol/ Magnesium Sulfate 45 meq/ Multivitamins/ Minerals 10 ml/ Chromium/Copper/ Manganese/Seleni/ Zn 1 ml/Total Parenteral Nutrition/Amino Acids/Dextrose/ Fat Emuls... 1,920 ml @ 80 mls/hr TPN CONT IV Last administered on 07/27/16 22:38; Start 07/27/16 at 22:00; Stop 07/28/16 at 21:59; Status DC Sodium Chloride (Iv Sodium Chloride 0.9% 1000ml Bag) 1,000 ml @ 45 mls/hr [id number] IV Last administered on 07/28/16 03:24; Start 07/27/16 at 17:00; Stop 07/28/16 at 10:27; Status DC Acetaminophen 650 mg 650 mg PRN Q6HRS PRN [place] fever Last administered on 03:57; Start 07/27/16 at 16:30; Stop 07/29/16 at 08:33; Status DC Sodium Chloride 1,000 ml @ 427.5 mls/ hr Q2H21M IV Last administered on 19:30; Start 07/27/16 at 19:30; Stop 07/27/16 at 23:30; Status DC Sodium Chloride 220 meq/Sodium Acetate 90 meq/ Potassium Chloride 30 meq/ Potassium Acetate 15 meq/Potassium Phosphate 10 mmol/ Magnesium Sulfate 45 meq/ Multivitamins/ Minerals 10 ml/ Chromium/Copper/ Manganese/Seleni/ Zn 1 ml/Total Parenteral Nutrition/Amino Acids/Dextrose/ Fat Emuls... 1,920 ml @ 80 mls/hr TPN CONT IV Last administered on 07/28/16 21:43; Start 07/28/16 at 22:00; Stop 07/29/16 at 21:59; Status DC Micafungin Sodium/ Dextrose (Mycamine) 100 ml @ 100 mls/hr Q24H IV Last administered on 08/02/16 00:45; Start 07/29/16 at 01:00 Lorazepam (Ativan) 0.05 mg PRN Q4HRS PRN IV ANXIETY / AGITATION; Start at 02:30; Stop 07/29/16 at 02:48; Status DC Lorazepam (Ativan) 0.5 mg PRN Q4HRS PRN IV ANXIETY / AGITATION Last administered on 07/29/16 03:18; Start 07/29/16 at 03:00 Acetaminophen (Tylenol) 650 mg PRN Q4HRS PRN [place] MILD PAIN / TEMP; Start at 08:30 Ketorolac Tromethamine (Toradol) 30 mg PRN Q6HRS PRN IV PAIN/FEVER Last administered on 07/30/16 00:50; Start 07/29/16 at 08:30; Stop 07/30/16 at 13:01 ; Status DC Pantoprazole Sodium 40 mg 40 mg DAILYAC IVP Last administered on 08/02/16 08: 57; Start 07/29/16 at 09:00 Sodium Chloride 1,000 ml @ 45 mls/hr [id number] IV Last administered on 09:17; Start 07/29/16 at 08:45; Stop 07/31/16 at 15:01; Status DC Sodium Chloride/ Sodium Acetate/ Potassium Chloride/ Potassium Acetate/ Potassium Phosphate/ Magnesium Sulfate/ Multivitamins/ Minerals/Chromium/ Copper /Manganese/ Seleni/Zn/Total Parenteral Nutrition/Amino Acids/Dextrose/ Fat Emulsion Intravenous (Sodium Chloride/ Potass... 1,920 ml @ 80 mls/hr TPN CONT IV Last administered on 07/29/16 22:06; Start 07/29/16 at 22:00; Stop at 21:59; Status DC Lidocaine/Sodium Bicarbonate 20 ml 20 ml STK-MED ONCE IJ ; Start 07/29/16 at 13: 13; Stop 07/29/16 at 13:14; Status DC Heparin Sodium/ Sodium Chloride 500 ml @ As Directed STK-MED ONCE .ROUTE ; Start 07/29/16 at 13:13; Stop 07/29/16 at 13:14; Status DC Lidocaine/ Epinephrine (Xylocaine 1%-Epi 1:100,000) 20 ml STK-MED ONCE .ROUTE ; Start 07/29/16 at 13:22; Stop 07/29/16 at 13:23; Status DC Midazolam HCl (Versed) 5 mg STK-MED ONCE .ROUTE ; Start 07/29/16 at 13:32; Stop 07/29/16 at 13:33; Status DC Fentanyl Citrate (Fentanyl 5ml Vial) 250 mcg STK-MED ONCE .ROUTE ; Start at 13:32; Stop 07/29/16 at 13:33; Status DC Heparin Sodium/ Sodium Chloride 1,000 unit 1X ONCE IART Last administered on 13:45; Start 07/29/16 at 13:45; Stop 07/29/16 at 13:48; Status DC Midazolam HCl (Versed) 5 mg 1X ONCE IV Last administered on 07/29/16 13:45; Start 07/29/16 at 13:45; Stop 07/29/16 at 13:48; Status DC Fentanyl Citrate (Fentanyl 5ml Vial) 250 mcg 1X ONCE IV Last administered on 13:45; Start 07/29/16 at 13:45; Stop 07/29/16 at 13:48; Status DC Lidocaine/ Epinephrine 20 ml 20 ml 1X ONCE IJ Last administered on 07/29/16 13:45; Start 07/29/16 at 13:45; Stop 07/29/16 at 13:48; Status DC Sodium Chloride 220 meq/Sodium Acetate 90 meq/ Potassium Chloride 15 meq/ Potassium Acetate 30 meq/Potassium Phosphate 10 mmol/ Magnesium Sulfate 45 meq/ Multivitamins/ Minerals 10 ml/ Chromium/Copper/ Manganese/Seleni/ Zn 1 ml/Total Parenteral Nutrition/Amino Acids/Dextrose/ Fat Emuls... 1,920 ml @ 80 mls/hr TPN CONT IV ; Start 07/30/16 at 22:00; Stop 07/31/16 at 21:59; Status DC Norepinephrine Bitartrate 8 mg/ Sodium Chloride 258 ml @ 1.93 mls/hr 1X ONCE IV Last administered on 07/30/16 11:17; Start 07/30/16 at 11:15; Stop at 15:43; Status DC Norepinephrine Bitartrate/Sodium Chloride (Levophed Vial/ Iv Sodium Chloride 0.9 % 250ml) 258 ml @ 0 mls/hr CONT PRN IV SEE I/O RECORD Last administered on 08/02 00:45; Start 07/30/16 at 11:15 Furosemide 60 mg 60 mg 1X ONCE IVP Last administered on 07/30/16 11:14; Start 07/30/16 at 11:15; Stop 07/30/16 at 11:16; Status DC Sodium Chloride 500 ml @ 500 mls/hr Q1H IV Last administered on 07/30/16 17: 04; Start 07/30/16 at 14:30; Stop 07/30/16 at 15:29; Status DC Albumin Human 100 ml @ 100 mls/hr Q8HRS IV Last administered on 07/31/16 05: 37; Start 07/30/16 at 14:30; Stop 07/31/16 at 06:59; Status DC Furosemide/Sodium Chloride (Lasix Drip/Iv Sodium Chloride 0.9% 100ml) 100 ml @ 0 mls/hr CONT PRN IV SEE I/O RECORD Last administered on 07/31/16 03:17; Start 07/30/16 at 14:30; Stop 08/01/16 at 13:19; Status DC Ondansetron HCl (Zofran) 8 mg PRN Q8HRS PRN IV NAUSEA/VOMITING Last administered on 07/30/16 14:38; Start 07/30/16 at 14:30 Sodium Bicarbonate 50 meq 50 meq 1X ONCE IV Last administered on 07/30/16 14: 43; Start 07/30/16 at 14:30; Stop 07/30/16 at 14:31; Status DC Heparin Sodium/ Sodium Chloride 500 ml @ As Directed STK-MED ONCE .ROUTE ; Start 07/30/16 at 14:49; Stop 07/30/16 at 14:50; Status DC Lidocaine HCl 20 ml STK-MED ONCE .ROUTE ; Start 07/30/16 at 14:49; Stop at 14:50; Status DC Midazolam HCl (Versed) 2 mg STK-MED ONCE .ROUTE ; Start 07/30/16 at 15:19; Stop 07/30/16 at 15:20; Status DC Heparin Sodium/ Sodium Chloride 1,000 unit 1X ONCE IART Last administered on 15:44; Start 07/30/16 at 15:45; Stop 07/30/16 at 15:46; Status DC Midazolam HCl (Versed) 1.5 mg 1X ONCE IV Last administered on 07/30/16 15:44 ; Start 07/30/16 at 15:45; Stop 07/30/16 at 15:46; Status DC Lidocaine HCl 20 ml 1X ONCE IJ Last administered on 07/30/16 15:44; Start at 15:45; Stop 07/30/16 at 15:46; Status DC Heparin Sodium (Porcine) 68097 unit 10,000 unit STK-MED ONCE .ROUTE ; Start at 15:54; Stop 07/30/16 at 15:55; Status DC Fentanyl Citrate 30 ml @ 0 mls/hr CONT PRN PRN IV PROTOCOL Last administered on 08/02/16 07:56; Start 07/30/16 at 16:45 Sodium Bicarbonate/ Dextrose 1,150 ml @ 125 mls/hr 1X ONCE IV Last administered on 07/30/16 18:34; Start 07/30/16 at 17:30; Stop 07/31/16 at 02:41 ; Status DC Succinylcholine Chloride 200 mg 200 mg STK-MED ONCE .ROUTE ; Start 07/30/16 at 19:47; Stop 07/30/16 at 19:48; Status DC Propofol 100 ml @ As Directed STK-MED ONCE IV ; Start 07/30/16 at 19:48; Stop 07/30/16 at 19:49; Status DC Midazolam HCl (Versed 100mg/ 100ml Premix) 100 ml @ 0 mls/hr CONT PRN IV SEE I/ O RECORD Last administered on 08/02/16 00:29; Start 07/30/16 at 21:15 Sodium Bicarbonate 50 meq 50 meq 1X ONCE IV Last administered on 07/30/16 22: 15; Start 07/30/16 at 22:30; Stop 07/30/16 at 22:31; Status DC Dopamine HCl/ Dextrose 250 ml @ 11.513 mls/ hr CONT PRN IV SEE I/O RECORD Last administered on 07/31/16 20:16; Start 07/30/16 at 22:15 Sodium Bicarbonate/ Dextrose 1,150 ml @ 125 mls/hr Q9H12M IV Last administered on 08/01/16 09:30; Start 07/31/16 at 03:00; Stop 08/01/16 at 13:19 ; Status DC Propofol (Diprivan) 1,000 mg STK-MED ONCE IV ; Start 07/30/16 at 20:00; Stop at 08:16; Status DC Succinylcholine Chloride 200 mg 200 mg STK-MED ONCE .ROUTE ; Start 07/30/16 at 20:00; Stop 07/31/16 at 08:16; Status DC Tigecycline 50 mg/ Sodium Chloride 50 ml @ 100 mls/hr Q12HR IV Last administered on 08/02/16 08:57; Start 07/31/16 at 21:00 Tigecycline/ Sodium Chloride (Tygacil/Iv Sodium Chloride 0.9% 100ml) 100 ml @ 200 mls/hr 1X ONCE IV Last administered on 07/31/16 09:22; Start 07/31/16 at 09:00; Stop 07/31/16 at 09:29; Status DC Darbepoetin Sarbjit 60 mcg 60 mcg WEEKLYHS SQ Last administered on 07/31/16 21:09 ; Start 07/31/16 at 21:00 Albumin Human 100 ml @ 100 mls/hr 1X ONCE IV Last administered on 07/31/16 11:40; Start 07/31/16 at 11:15; Stop 07/31/16 at 12:14; Status DC Albumin Human 100 ml @ 100 mls/hr 1X ONCE IV Last administered on 07/31/16 12:03; Start 07/31/16 at 11:15; Stop 07/31/16 at 12:14; Status DC Sodium Chloride (Iv Sodium Chloride 0.9% 1000ml Bag) 1,000 ml @ 1,000 mls/hr Q1H PRN IV hypotension; Start 07/31/16 at 11:33; Stop 07/31/16 at 17:32; Status DC Info (PHARMACY MONITORING -- do not chart) 1 each PRN DAILY PRN MC SEE COMMENTS ; Start 07/31/16 at 11:45 Info (PHARMACY MONITORING -- do not chart) 1 each PRN DAILY PRN MC SEE COMMENTS ; Start 07/31/16 at 11:45; Status UNV Hydrocortisone Sodium Succinate (Solu-Cortef) 100 mg Q8HRS IV Last administered on 08/02/16 13:13; Start 08/01/16 at 07:00 Albuterol/ Ipratropium (Duoneb) 3 ml RTQID NEB Last administered on 08/02/16 11:57; Start 08/01/16 at 08:00 Albuterol/ Ipratropium 3 ml 3 ml STK-MED ONCE .ROUTE Last administered on 07:34; Start 08/01/16 at 06:59; Stop 08/01/16 at 07:00; Status DC Sodium Chloride 1,000 ml @ 1,000 mls/hr Q1H PRN IV hypotension; Start 08/01/16 at 06:57; Stop 08/01/16 at 12:56; Status DC Albumin Human (Albuminar) 200 ml @ 200 mls/hr 1X PRN PRN IV Hypotension; Start 08/01/16 at 07:00; Stop 08/01/16 at 12:59; Status DC Info (PHARMACY MONITORING -- do not chart) 1 each PRN DAILY PRN MC SEE COMMENTS ; Start 08/01/16 at 07:00; Status UNV Info 1 each 1 each PRN DAILY PRN MC SEE COMMENTS Last administered on 12:45; Start 08/01/16 at 13:30 Sodium Chloride 220 meq/Sodium Acetate 90 meq/ Potassium Chloride 15 meq/ Potassium Acetate 30 meq/Potassium Phosphate 10 mmol/ Magnesium Sulfate 45 meq/ Multivitamins/ Minerals 10 ml/ Chromium/Copper/ Manganese/Seleni/ Zn 1 ml/Total Parenteral Nutrition/Amino Acids/Dextrose/ Fat Emuls... 1,920 ml @ 80 mls/hr TPN CONT IV Last administered on 08/01/16 21:56; Start 08/01/16 at 22:00; Stop 08/02/16 at 21:59 Potassium Chloride (KCl Premix 20meq) 50 ml @ 50 mls/hr Q1H IV Last administered on 08/01/16 19:05; Start 08/01/16 at 17:00; Stop 08/01/16 at 18:59 ; Status DC Insulin Aspart 0-6 UNITS TIDWMEALS SQ Last administered on 08/02/16 11:33; Start 08/02/16 at 12:00; Stop 08/02/16 at 14:34; Status DC Sodium Chloride 220 meq/Sodium Acetate 90 meq/ Potassium Chloride 15 meq/ Potassium Acetate 30 meq/Magnesium Sulfate 45 meq/ Multivitamins/ Minerals 10 ml / Chromium/Copper/ Manganese/Seleni/ Zn 1 ml/Total Parenteral Nutrition/Amino Acids/Dextrose/ Fat Emulsion Intravenous 1,920 ml @ 80 mls/hr TPN CONT IV ; Start 08/02/16 at 22:00; Stop 08/03/16 at 21:59 Levofloxacin/ Dextrose 150 ml @ 100 mls/hr 1X ONCE IV Last administered on 14:35; Start 08/02/16 at 14:00; Stop 08/02/16 at 15:29 Daptomycin/Sodium Chloride (Cubicin/Iv Sodium Chloride 0.9% 50ml) 50 ml @ 100 mls/hr ONCE ONCE IV Last administered on 08/02/16 14:34; Start 08/02/16 at 15 :00; Stop 08/02/16 at 15:29 Insulin Aspart (Novolog) 0-6 UNITS Q6HRS SQ ; Start 08/02/16 at 18:00 Active Scripts Active Dilaudid (Hydromorphone Hcl) 4 Mg Tablet 4 Mg PO Q6HRS Phenazopyridine Hcl 200 Mg Tablet 200 Mg PO PRN TID PRN FENTANYL 50mcg/hr (Fentanyl) 1 Each Patch.td72 1 Patch TD Q3DAYS Anaspaz (Hyoscyamine Sulfate) 0.125 Mg Tab.rapdis 0.125 Mg PO Q6HRS PRN Cefpodoxime Proxetil 200 Mg Tablet 200 Mg PO BID Sertraline Hcl 50 Mg Tablet 100 Mg PO DAILY 30 Days Protonix (Pantoprazole Sodium) 40 Mg Tablet.dr 1 Tab PO DAILY Zinc Oxide 56.7 Gm Oint...g. 1 Sang TP BID Lidocaine 35.44 Gm Oint...g. 1 Sang TP BID Ondansetron Odt (Ondansetron) 4 Mg Tab.rapdis 8 Mg PO PRN Q8HRS PRN Gas-X (Simethicone) 80 Mg Tab.chew 80 Mg PO PRN QID PRN Reported Lorazepam 0.5 Mg Tablet 0.5 Mg PO PRN BID PRN Vitals/I & O Vital Sign - Last 24 Hours 08/01/16 08/01/16 08/01/16 08/01/16 16:00 16:00 16:00 16:26 Pulse 98 98 Resp 24 B/P 110/54 84/55 Pulse Ox 94 94 O2 Delivery Mechanical Ventilator Ventilator 08/01/16 08/01/16 08/01/16 08/01/16 17:00 17:00 17:57 18:00 Pulse 94 94 96 Resp 24 24 B/P 99/61 118/58 110/62 Pulse Ox 99 94 98 O2 Delivery Ventilator 08/01/16 08/01/16 08/01/16 08/01/16 18:00 19:00 19:00 19:51 Temp 100.0 100.0 Pulse 96 96 97 Resp 24 B/P 126/62 101/55 Pulse Ox 98 98 O2 Delivery Ventilator Ventilator 08/01/16 08/01/16 08/01/16 08/01/16 20:00 20:44 20:47 21:00 Temp 99.5 99.3 99.5 99.3 Pulse 98 97 97 Resp 24 24 B/P 106/57 109/57 Pulse Ox 98 98 O2 Delivery Mechanical Ventilator Ventilator Ventilator 08/01/16 08/01/16 08/01/16 08/01/16 21:00 21:30 22:00 22:00 Temp 99.1 99.1 Pulse 96 92 92 Resp 24 B/P 110/59 112/58 Pulse Ox 98 98 O2 Delivery Ventilator Ventilator 08/01/16 08/01/16 08/01/16 08/01/16 23:00 23:00 23:35 23:39 Temp 97.3 97.3 Pulse 92 92 Resp 24 24 B/P 114/50 Pulse Ox 94 98 O2 Delivery Ventilator Ventilator Ventilator 08/02/16 08/02/16 08/02/16 08/02/16 00:00 00:00 00:00 01:00 Temp 97.2 97.2 Pulse 78 78 82 Resp 24 B/P 118/58 Pulse Ox 98 O2 Delivery Mechanical Ventilator Ventilator 08/02/16 08/02/16 08/02/16 08/02/16 01:00 01:30 02:00 02:00 Temp 97.2 97.2 97.2 97.2 Pulse 82 85 85 Resp 24 24 B/P 108/56 126/63 Pulse Ox 98 98 98 O2 Delivery Ventilator Ventilator Ventilator 08/02/16 08/02/16 08/02/16 08/02/16 03:00 03:00 03:40 04:00 Temp 97.3 97.3 Pulse 84 84 Resp 24 B/P 128/62 128/62 Pulse Ox 99 98 O2 Delivery Ventilator Ventilator Mechanical Ventilator 08/02/16 08/02/16 08/02/16 08/02/16 04:00 04:00 05:00 05:00 Temp 97.2 97.2 97.2 97.2 Pulse 82 82 82 82 Resp 24 24 B/P 124/62 124/62 128/64 128/64 Pulse Ox 99 97 O2 Delivery Ventilator Ventilator 08/02/16 08/02/16 08/02/16 08/02/16 05:27 06:00 06:00 07:56 Temp 96.8 96.8 Pulse 79 82 Resp 24 B/P 109/59 108/58 Pulse Ox 97 97 97 O2 Delivery Ventilator Ventilator Ventilator 08/02/16 08/02/16 08/02/16 08/02/16 08:00 08:00 08:00 08:16 Temp 96.9 96.9 Pulse 76 76 Resp 20 B/P 112/60 112/60 Pulse Ox 97 97 O2 Delivery Mechanical Ventilator Ventilator Ventilator 08/02/16 08/02/16 08/02/16 08/02/16 08:26 09:00 09:00 09:34 Pulse 82 82 Resp 20 20 B/P 128/60 120/54 Pulse Ox 93 93 97 O2 Delivery Ventilator Ventilator Ventilator O2 Flow Rate 50.0 08/02/16 08/02/16 08/02/16 08/02/16 10:00 10:00 11:00 11:00 Temp 95.5 95.5 Pulse 80 80 79 78 Resp 20 20 B/P 128/60 128/60 130/62 126/60 Pulse Ox 95 93 O2 Delivery Ventilator Ventilator 08/02/16 08/02/16 08/02/16 08/02/16 11:57 12:00 12:00 12:00 Temp 95.9 95.9 Pulse 76 75 Resp 20 B/P 118/61 113/61 Pulse Ox 96 100 O2 Delivery Ventilator Ventilator Mechanical Ventilator 08/02/16 08/02/16 08/02/16 08/02/16 12:54 13:00 13:00 14:00 Pulse 80 83 81 Resp 20 B/P 122/64 123/62 100/55 Pulse Ox 97 96 O2 Delivery Ventilator Ventilator 08/02/16 08/02/16 08/02/16 14:00 15:00 15:00 Temp 96.6 96.6 96.6 96.6 Pulse 82 83 82 Resp 20 20 B/P 101/56 97/56 97/54 Pulse Ox 98 95 O2 Delivery Ventilator Ventilator Intake and Output 08/01/16 08/01/16 08/02/16 15:00 23:00 07:00 Intake Total 50 ml 1925 ml Output Total 850 ml 420 ml 150 ml Balance -850 ml -370 ml 1775 ml MATT PALACIOS MD Aug 02, 2016 15:29
[2016-08-02] MEDS: INSULIN ASPART 300 UNITS/3 ML INSULN.PEN SQ SCH (17:51)
[2016-08-02] MEDS ORDERED: TOTAL PARENTERAL NUTRITION IV SCH ×10 (22:00)
[2016-08-02] MEDS ORDERED: [UNRECOGNIZED DRUG - OTHER] IV SCH ×10 (22:00)
[2016-08-02] MEDS ORDERED: DEXTROSE 70% IV SCH ×10 (22:00)
[2016-08-02] MEDS ORDERED: AMINO ACIDS IV SCH ×10 (22:00)
[2016-08-03] VITALS (26 sets, daily range): BP systolic 99–144; BP diastolic 46–68
[2016-08-03] MEDS: MICAFUNGIN 100 MG in IV DEXTROSE 5% 100 ML IV SCH (01:27)
[2016-08-03] MEDS: HYDROCORTISONE SOD SUCC/PF 100 MG/2 ML VIAL. IV SCH ×3 (06:24→22:52)
[2016-08-03] MEDS: INSULIN ASPART 300 UNITS/3 ML INSULN.PEN SQ SCH ×4 (06:27→17:29)
[2016-08-03 07:06] LABS: CREATININE 2.2 mg/dL (0.6-1.0); GFR 27.5; MAGNESIUM 3.5 mg/dL (1.8-2.4); PHOSPHORUS 5.7 mg/dL (2.6-4.7); POTASSIUM 4.1 mmol/L (3.5-5.1)
[2016-08-03] MEDS ORDERED: IV NORMAL SALINE 1000ML BAG 1,000 ML IV PRN ×2 (07:26)
[2016-08-03] MEDS ORDERED: DIALYSIS PATIENT. MC PRN (07:30)
[2016-08-03] MEDS ORDERED: 0.9 % SODIUM CHLORIDE 10 ML DISP.SYRIN. IV PRN ×2 (07:30)
[2016-08-03] MEDS ORDERED: DIPHENHYDRAMINE 50 MG/ML VIAL IV PRN ×2 (07:30)
[2016-08-03 07:50] LABS: BASO # 0.1 x10^3/uL (0.0-0.2); BASO % 0 % (0-3); EOS % 0 % (0-3); HEMATOCRIT 28.1 % (36.0-47.0); LYMPH # 1.5 x10^3/uL (1.0-4.8); LYMPH % 11 % (24-48); MEAN CORPUSCULAR HEMOGLOBIN 25 pg (25-35); MEAN CORPUSCULAR HGB CONC 32 g/dL (31-37); MEAN CORPUSCULAR VOLUME 79 fL (79-100); MONO % 6 % (0-9); NEUT % 83 % (31-73); PLATELET COUNT 58 x10^3/uL (140-400); RED BLOOD COUNT 3.54 x10^6/uL (3.50-5.40); RED CELL DISTRIBUTION WIDTH 19.9 % (11.5-14.5); WHITE BLOOD COUNT 14.1 x10^3/uL (4.0-11.0)
--- NOTE | 2016-08-03 07:52 | PDOC ---
Infectious Disease Note Subjective Subjective Sedated Intubated. Hypotensive. Levophed 5 mcg No fever TPN ROS ROS Unobtainable Vital Sign Vital Signs Vital Signs Date Time Temp Pulse Resp B/P Pulse Ox O2 Delivery O2 Flow Rate FiO2 08/03/16 06:30 08/03/16 06:30 96.8 82 20 98 Ventilator 96.8 08/03/16 00:00 50.0 Physical Exam PHYSICAL EXAM GENERAL: Intubated and sedated. Under bearhugger HEENT: Pupils constricted. ETT. OGT LUNGS: Clear HEART: S1S2, no gallop, no murmur. Distal DP palpable ABD: Soft, BS present, + fistula : [place] EXT: Generalized edema. SAND BLASTER: Alert, oriented x 3, no focal neurologic deficit SKIN: No rash Nontunneled PICC, HDC & femoral swans cath. clean Labs Lab Laboratory Tests Test 08/02/16 11:16 08/02/16 17:46 08/03/16 00:01 08/03/16 06:15 Glucose (Fingerstick) 191mg/dL (70-99) 197mg/dL (70-99) 126mg/dL (70-99) Sodium Level 150mmol/L (136-145) Potassium Level 4.1mmol/L (3.5-5.1) Chloride Level 109mmol/L (98-107) Carbon Dioxide Level 30mmol/L (21-32) Anion Gap 11 (6-14) Blood Urea Nitrogen 74mg/dL (7-20) Creatinine 2.2mg/dL (0.6-1.0) Estimated GFR (Cockcroft-Gault) 27.5 Glucose Level 184mg/dL (70-99) Calcium Level 8.0mg/dL (8.5-10.1) Phosphorus Level 5.7mg/dL (2.6-4.7) Magnesium Level 3.5mg/dL (1.8-2.4) Test 08/03/16 06:24 Glucose (Fingerstick) 172mg/dL (70-99) Micro BLOOD CULTURE Preliminary NO GROWTH AFTER 2 DAYS Enterobacter aerogenes 50,000-100,000 colony forming units per mL URINE CULTURE RES 2 Final Enterococcus faecium 50,000-100,000 colony forming units per mL ANTIMICROBIAL SUSCEPTIBILITY Final Comment S = Susceptible; I = Intermediate; R = Resistant P = Positive; N = Negative MICS are expressed in micrograms per mL Antibiotic RSLT#1 RSLT#2 RSLT#3 RSLT#4 Amoxicillin/Clavulanic Acid R Cefazolin R Cefepime R Ceftriaxone R Cefuroxime R Cephalothin R Ciprofloxacin R R Gentamicin S Imipenem R Levofloxacin R R Nitrofurantoin R I Penicillin R Piperacillin R Tetracycline R R Tobramycin S Trimethoprim/Sulfa S Vancomycin S Objective Assessment C Glabrata sepsis - 07/27 - line removed and positive 07/29. 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
--- NOTE | 2016-08-03 08:15 | RAD ---
Portable chest, 08/03/2016: History: Bilateral pulmonary infiltrates Comparison is made to yesterday's study. The patient is rotated to the right. The ET tube tip lies well above the deborah. An NG tube extends into the stomach. A right sided central venous catheter extends to the level of the atriocaval junction. The Schoenchen-Vero catheter tip lies in the right main pulmonary artery region. The heart is within normal limits in size. Patchy bilateral pulmonary infiltrates continue to slowly improve. There is no evidence of pneumothorax or pleural fluid. No new abnormality is seen. IMPRESSION: 1. Various tubes and catheters are unchanged in positions as described above. 2. Slowly improving bilateral pulmonary infiltrates.
[2016-08-03 08:36] LABS: PROTHROMBIN TIME PATIENT 21.2 SEC (11.7-14.0)
[2016-08-03] MEDS: IPRATRPIUM/ALBUTEROL 0.5/2.5MG 3 ML NEBU. NEB SCH ×4 (08:55→20:03)
[2016-08-03] MEDS: ALBUMIN HUMAN 25% 200 ML IV SCH ×2 (09:01→10:00)
[2016-08-03 09:15] LABS: HCO3 ABG 25 mmol/L (21-28); PCO2 ABG 36 mmHg (35-46); PH ABG 7.46 (7.35-7.45); PO2 ABG 137 mmHg (65-108); SAT O2 ABG 98 % (92-99)
[2016-08-03 09:18] LABS: FIO2 ABG 50
--- NOTE | 2016-08-03 09:21 | PDOC ---
PROGRESS NOTES Subjective Subjective sedated on ventilator. receiving hemodialysis now. still on pressors and TPN. lab reviewed. serum sodium 150. pulmonary infiltrates slowly improving on cxr.fibrinogen low and inr 2.0 and platelets 58K. due to sepsis. Objective Objective Vital Signs Date Time Temp Pulse Resp B/P Pulse Ox O2 Delivery O2 Flow Rate FiO2 08/03/16 06:30 08/03/16 06:30 96.8 82 20 98 Ventilator 96.8 08/03/16 00:00 50.0 Intake and Output 08/03/16 07:00 Intake Total 3238 ml Output Total 605 ml Balance 2633 ml IV Total 3015 ml Other 223 ml Output Urine Total 605 ml Physical Exam Abdomen: Soft Heart: Regular rate, Normal S1, Normal S2 Extremities: Other (2 plus edema arms) General: Other (sedated) HEENT: Atraumatic Lungs: Other (clear anteriorlyu) Neuro: Other (sedated) Psych/Mental Status: Other (sedated) Skin: No rashes Assessment Assessment Problems Medical Problems::ana glabrata fungemia with severe sepsis and shock acute hypoxic respiratory failure. intubated on ventilator metabolic encephalopathy acute kidney injury due to ATN from sepsis. . making urine now bilateral lung infiltrates. suspect pneumonia vs ARDS lactic acidosis thrombocytopenia due to sepsis picc associated fungemia with sepsis and shock 4. Enterocutaneous fistula. 5. Enterovesical fistula. 6. Anemia of chronic disease. 7. Moderately severe protein calorie malnutrition. coagulopathy and low fibrinogen due to sepsis hypernatremia (1) Abdominal pain Status: Acute (2) Enterocutaneous fistula Status: Acute (3) Sepsis Status: Acute (4) Urinary tract infection Status: Acute (5) UTI (urinary tract infection) Status: Acute Plan Plan of Care ventilator support hemodialysis today wean off pressors iv micafungin and Tygacil. received dose of IV levaquin and daptomycin the other day iv hydrocortisone scd TPN Comment Review of Relevant I have reviewed the following items lucila (where applicable) has been applied. Labs Laboratory Tests Test 08/01/16 16:00 08/02/16 05:45 08/02/16 06:39 08/02/16 11:16 Sodium Level 142mmol/L (136-145) 144mmol/L (136-145) Potassium Level 3.2mmol/L (3.5-5.1) 4.2mmol/L (3.5-5.1) Chloride Level 101mmol/L (98-107) 103mmol/L (98-107) Carbon Dioxide Level 31mmol/L (21-32) 27mmol/L (21-32) Anion Gap 10 (6-14) 14 (6-14) Blood Urea Nitrogen 21mg/dL (7-20) 35mg/dL (7-20) Creatinine 1.4mg/dL (0.6-1.0) 1.8mg/dL (0.6-1.0) Estimated GFR (Cockcroft-Gault) 46.3 34.6 Glucose Level 61mg/dL (70-99) 204mg/dL (70-99) Lactic Acid Level 4.3mmol/L (0.4-2.0) 5.4mmol/L (0.4-2.0) Calcium Level 8.1mg/dL (8.5-10.1) 7.7mg/dL (8.5-10.1) White Blood Count 14.5x10^3/uL (4.0-11.0) Red Blood Count 3.69x10^6/uL (3.50-5.40) Hemoglobin 9.5g/dL (12.0-15.5) Hematocrit 29.1% (36.0-47.0) Mean Corpuscular Volume 79fL (79-100) Mean Corpuscular Hemoglobin 26pg (25-35) Mean Corpuscular Hemoglobin Concent 33g/dL (31-37) Red Cell Distribution Width 20.0% (11.5-14.5) Platelet Count 46x10^3/uL (140-400) Neutrophils (%) (Auto) 79% (31-73) Lymphocytes (%) (Auto) 14% (24-48) Monocytes (%) (Auto) 6% (0-9) Eosinophils (%) (Auto) 0% (0-3) Basophils (%) (Auto) 1% (0-3) Neutrophils # (Auto) 11.5x10^3uL (1.8-7.7) Lymphocytes # (Auto) 2.0x10^3/uL (1.0-4.8) Monocytes # (Auto) 0.9x10^3/uL (0.0-1.1) Eosinophils # (Auto) 0.0x10^3/uL (0.0-0.7) Basophils # (Auto) 0.1x10^3/uL (0.0-0.2) Segmented Neutrophils % 77% (35-66) Band Neutrophils % 10% (0-9) Lymphocytes % 8% (24-48) Monocytes % 4% (0-10) Basophils % 1% (0-3) Platelet Estimate Decreased (ADEQUATE) Anisocytosis Slight Phosphorus Level 5.1mg/dL (2.6-4.7) Magnesium Level 2.1mg/dL (1.8-2.4) Thyroid Stimulating Hormone (TSH) 0.509uIU/mL (0.358-3.74) Free Thyroxine 0.96ng/dL (0.76-1.46) O2 Saturation 96% (92-99) Arterial Blood pH 7.50 (7.35-7.45) Arterial Blood pCO2 at Patient Temp 37mmHg (35-46) Arterial Blood pO2 at Patient Temp 89mmHg (65-108) Arterial Blood HCO3 28mmol/L (21-28) Arterial Blood Base Excess 4mmol/L (-3-3) FiO2 60 Glucose (Fingerstick) 191mg/dL (70-99) Test 08/02/16 17:46 08/03/16 00:01 08/03/16 06:15 08/03/16 06:24 Glucose (Fingerstick) 197mg/dL (70-99) 126mg/dL (70-99) 172mg/dL (70-99) White Blood Count 14.1x10^3/uL (4.0-11.0) Red Blood Count 3.54x10^6/uL (3.50-5.40) Hemoglobin 9.0g/dL (12.0-15.5) Hematocrit 28.1% (36.0-47.0) Mean Corpuscular Volume 79fL (79-100) Mean Corpuscular Hemoglobin 25pg (25-35) Mean Corpuscular Hemoglobin Concent 32g/dL (31-37) Red Cell Distribution Width 19.9% (11.5-14.5) Platelet Count 58x10^3/uL (140-400) Neutrophils (%) (Auto) 83% (31-73) Lymphocytes (%) (Auto) 11% (24-48) Monocytes (%) (Auto) 6% (0-9) Eosinophils (%) (Auto) 0% (0-3) Basophils (%) (Auto) 0% (0-3) Neutrophils # (Auto) 11.7x10^3uL (1.8-7.7) Lymphocytes # (Auto) 1.5x10^3/uL (1.0-4.8) Monocytes # (Auto) 0.8x10^3/uL (0.0-1.1) Eosinophils # (Auto) 0.0x10^3/uL (0.0-0.7) Basophils # (Auto) 0.1x10^3/uL (0.0-0.2) Sodium Level 150mmol/L (136-145) Potassium Level 4.1mmol/L (3.5-5.1) Chloride Level 109mmol/L (98-107) Carbon Dioxide Level 30mmol/L (21-32) Anion Gap 11 (6-14) Blood Urea Nitrogen 74mg/dL (7-20) Creatinine 2.2mg/dL (0.6-1.0) Estimated GFR (Cockcroft-Gault) 27.5 Glucose Level 184mg/dL (70-99) Calcium Level 8.0mg/dL (8.5-10.1) Phosphorus Level 5.7mg/dL (2.6-4.7) Magnesium Level 3.5mg/dL (1.8-2.4) Test 08/03/16 08:15 Prothrombin Time 21.2SEC (11.7-14.0) Prothromb Time International Ratio 2.0 (0.8-1.1) Fibrinogen < 60mg/dL (200-440) Lactic Acid Level 2.9mmol/L (0.4-2.0) Laboratory Tests Test 08/02/16 11:16 08/02/16 17:46 08/03/16 00:01 08/03/16 06:15 Glucose (Fingerstick) 191mg/dL (70-99) 197mg/dL (70-99) 126mg/dL (70-99) White Blood Count 14.1x10^3/uL (4.0-11.0) Red Blood Count 3.54x10^6/uL (3.50-5.40) Hemoglobin 9.0g/dL (12.0-15.5) Hematocrit 28.1% (36.0-47.0) Mean Corpuscular Volume 79fL (79-100) Mean Corpuscular Hemoglobin 25pg (25-35) Mean Corpuscular Hemoglobin Concent 32g/dL (31-37) Red Cell Distribution Width 19.9% (11.5-14.5) Platelet Count 58x10^3/uL (140-400) Neutrophils (%) (Auto) 83% (31-73) Lymphocytes (%) (Auto) 11% (24-48) Monocytes (%) (Auto) 6% (0-9) Eosinophils (%) (Auto) 0% (0-3) Basophils (%) (Auto) 0% (0-3) Neutrophils # (Auto) 11.7x10^3uL (1.8-7.7) Lymphocytes # (Auto) 1.5x10^3/uL (1.0-4.8) Monocytes # (Auto) 0.8x10^3/uL (0.0-1.1) Eosinophils # (Auto) 0.0x10^3/uL (0.0-0.7) Basophils # (Auto) 0.1x10^3/uL (0.0-0.2) Sodium Level 150mmol/L (136-145) Potassium Level 4.1mmol/L (3.5-5.1) Chloride Level 109mmol/L (98-107) Carbon Dioxide Level 30mmol/L (21-32) Anion Gap 11 (6-14) Blood Urea Nitrogen 74mg/dL (7-20) Creatinine 2.2mg/dL (0.6-1.0) Estimated GFR (Cockcroft-Gault) 27.5 Glucose Level 184mg/dL (70-99) Calcium Level 8.0mg/dL (8.5-10.1) Phosphorus Level 5.7mg/dL (2.6-4.7) Magnesium Level 3.5mg/dL (1.8-2.4) Test 08/03/16 06:24 08/03/16 08:15 Glucose (Fingerstick) 172mg/dL (70-99) Prothrombin Time 21.2SEC (11.7-14.0) Prothromb Time International Ratio 2.0 (0.8-1.1) Fibrinogen < 60mg/dL (200-440) Lactic Acid Level 2.9mmol/L (0.4-2.0) Microbiology 08/01/16 Blood Culture - Preliminary, Resulted NO GROWTH AFTER 2 DAYS 07/15/16 Urine Culture - Final, Complete 07/15/16 Urine Culture Result 1 (ROYA) - Final, Complete 07/15/16 Urine Culture Result 2 (ROYA) - Final, Complete 07/15/16 Antimicrobic Susceptibility - Final, Complete 07/29/16 Aerobic Culture - Final, Complete 07/29/16 Aerobic Culture Result 1 (ROYA) - Final, Complete Medications Current Medications Piperacillin Sod/ Tazobactam Sod/ Sodium Chloride (Zosyn/Iv Sodium Chloride 0.9 % 100ml) 100 ml @ 200 mls/hr 1X ONCE IV Last administered on 07/15/16 22:56; Start 07/15/16 at 22:00; Stop 07/15/16 at 22:29; Status DC Fentanyl Citrate 50 mcg 50 mcg PRN Q15MIN PRN IV PAIN GREATER THAN 3/10 Last administered on 07/16/16 00:30; Start 07/15/16 at 21:45; Stop 07/16/16 at 02:00; Status DC Sodium Chloride 1,000 ml @ 1,000 mls/hr 1X ONCE IV Last administered on 21:59; Start 07/15/16 at 22:00; Stop 07/15/16 at 22:59; Status DC Sodium Chloride (Iv Sodium Chloride 0.9% 500ml Bag) 500 ml @ 500 mls/hr 1X ONCE IV Last administered on 07/15/16 22:00; Start 07/15/16 at 22:00; Stop at 22:59; Status DC Ondansetron HCl (Zofran) 4 mg PRN Q8HRS PRN IV NAUSEA/VOMITING; Start 07/15/16 at 23:30; Stop 07/16/16 at 08:52; Status DC Fentanyl Citrate 50 mcg 50 mcg PRN Q2HR PRN IV SEVERE PAIN Last administered on 07/16/16 08:10; Start 07/15/16 at 23:30; Stop 07/16/16 at 08:52; Status DC Sodium Chloride (Iv Sodium Chloride 0.9% 1000ml Bag) 1,000 ml @ 150 mls/hr Q6H40M IV Last administered on 07/15/16 02:00; Start 07/15/16 at 23:45; Stop 07/16/16 at 08:52; Status DC Acetaminophen (Tylenol) 650 mg PRN Q4HRS PRN PO FEVER; Start 07/15/16 at 23:30; Stop 07/16/16 at 23:29; Status DC Info (Do NOT chart on this placeholder) 1 each PRN DAILY PRN MC NEEDS VERIFICATION; Start 07/16/16 at 03:00; Status Cancel Acetaminophen 650 mg 650 mg PRN Q4HRS PRN PO MILD PAIN / TEMP Last administered on 07/28/16 07:42; Start 07/16/16 at 08:45; Stop 07/29/16 at 08:33 ; Status DC Piperacillin Sod/ Tazobactam Sod 3.375 gm/Sodium Chloride 50 ml @ 100 mls/hr Q6HRS IV Last administered on 07/18/16 05:50; Start 07/16/16 at 10:00; Stop 07/18 at 13:28; Status DC Linezolid (Zyvox Premix) 300 ml @ 300 mls/hr Q12HR IV Last administered on 07/18 08:34; Start 07/16/16 at 10:00; Stop 07/18/16 at 13:28; Status DC Hydromorphone HCl (Dilaudid) 2 mg PRN Q4HRS PRN IV MODERATE PAIN Last administered on 07/28/16 23:33; Start 07/16/16 at 08:45 Hydromorphone HCl (Dilaudid) 4 mg PRN Q4HRS PRN IV SEVERE PAIN Last administered on 07/30/16 09:23; Start 07/16/16 at 08:45; Stop 07/31/16 at 15:01 ; Status DC Pantoprazole Sodium (Protonix) 40 mg DAILYAC PO Last administered on 07/27/16 11:11; Start 07/16/16 at 09:30; Stop 07/29/16 at 08:44; Status DC Hyoscyamine (Anaspaz) 0.125 mg Q6HRS PO Last administered on 07/20/16 05:20; Start 07/16/16 at 12:00; Stop 07/20/16 at 08:58; Status DC Phenazopyridine HCl (Pyridium) 200 mg TID PO Last administered on 07/20/16 08: 25; Start 07/16/16 at 09:30; Stop 07/20/16 at 08:58; Status DC Lorazepam (Ativan) 0.5 mg PRN BID PRN PO ANXIETY / AGITATION Last administered on 07/29/16 02:16; Start 07/16/16 at 08:45; Stop 07/31/16 at 15:01; Status DC Simethicone (Gas-X) 80 mg PRN Q4HRS PRN PO GAS / BLOATING Last administered on 07/24/16 22:30; Start 07/16/16 at 08:45; Stop 07/31/16 at 15:01; Status DC Zolpidem Tartrate 5 mg 5 mg PRN QHS PRN PO INSOMNIA Last administered on 23:14; Start 07/16/16 at 08:45; Stop 07/31/16 at 15:01; Status DC Potassium Chloride/Dextrose/ Sod Cl 1,000 ml @ 80 mls/hr [id number] IV Last administered on 07/16/16 10:54; Start 07/16/16 at 09:30; Stop 07/16/16 at 21:59; Status DC Fluconazole/ Sodium Chloride (Diflucan 200mg/ 100ml Premix) 100 ml @ 100 mls/ hr Q24H IV Last administered on 07/18/16 11:43; Start 07/16/16 at 11:00; Stop at 13:28; Status DC Info 1 each 1 each PRN DAILY PRN MC SEE COMMENTS Last administered on 12:41; Start 07/16/16 at 10:00; Stop 08/01/16 at 11:24; Status DC Sodium Chloride 220 meq/Sodium Acetate 90 meq/ Potassium Chloride 50 meq/ Potassium Acetate 15 meq/Potassium Phosphate 10 mmol/ Magnesium Sulfate 50 meq/ Calcium Gluconate 6 meq/ Multivitamins/ Minerals 10 ml/ Chromium/Copper/ Manganese/Seleni/ Zn 1 ml/Total Parenteral Nutrition/Amino Acids/Dextro... 1, 920 ml @ 80 mls/hr TPN CONT IV ; Start 07/16/16 at 22:00; Stop 07/16/16 at 22:00 ; Status DC Sodium Chloride/ Sodium Acetate/ Potassium Chloride/ Potassium Acetate/ Potassium Phosphate/ Magnesium Sulfate/ Calcium Gluconate/ Multivitamins/ Minerals/Chromium/ Copper/Manganese/ Seleni/Zn/Total Parenteral Nutrition/Amino Acids/Dextrose/ Fat Emulsion Intravenous (Sodium Chlori... 1,820 ml @ 75.833 mls/ hr TPN CONT IV Last administered on 07/16/16 21:03; Start 07/16/16 at 22: 00; Stop 07/17/16 at 21:59; Status DC Ondansetron HCl (Zofran) 4 mg PRN Q6HRS PRN IV NAUSEA/VOMITING Last administered on 07/21/16 08:48; Start 07/16/16 at 17:15; Stop 07/31/16 at 15:01; Status DC Diphenhydramine HCl (Benadryl) 25 mg PRN Q6HRS PRN PO ITCHING Last administered on 07/25/16 23:38; Start 07/16/16 at 17:45; Stop 07/31/16 at 15:01 ; Status DC Lidocaine (Xylocaine) 1 sagn BID TP Last administered on 08/02/16 20:46; Start 07/17/16 at 09:00 Zinc Oxide 1 sang 1 sang BID TP Last administered on 08/02/16 20:46; Start at 09:30 Sodium Chloride/ Sodium Acetate/ Potassium Chloride/ Potassium Acetate/ Potassium Phosphate/ Magnesium Sulfate/ Calcium Gluconate/ Multivitamins/ Minerals/Chromium/ Copper/Manganese/ Seleni/Zn/Total Parenteral Nutrition/Amino Acids/Dextrose/ Fat Emulsion Intravenous (Sodium Chlori... 1,920 ml @ 80 mls/ hr TPN CONT IV Last administered on 07/17/16 22:13; Start 07/17/16 at 22:00; Stop 07/18/16 at 21:59; Status DC Furosemide 40 mg 40 mg 1X ONCE IVP Last administered on 07/18/16 11:43; Start 07/18/16 at 11:00; Stop 07/18/16 at 11:07; Status DC Sodium Chloride 220 meq/Sodium Acetate 90 meq/ Potassium Chloride 50 meq/ Potassium Acetate 15 meq/Potassium Phosphate 10 mmol/ Magnesium Sulfate 50 meq/ Calcium Gluconate 3 meq/ Multivitamins/ Minerals 10 ml/ Chromium/Copper/ Manganese/Seleni/ Zn 1 ml/Total Parenteral Nutrition/Amino Acids/Dextro... 1, 920 ml @ 80 mls/hr TPN CONT IV Last administered on 07/19/16 00:03; Start 07/18/16 at 22:00; Stop 07/19/16 at 21:59; Status DC Meropenem 1 gm/ Sodium Chloride 100 ml @ 200 mls/hr Q8HRS IV Last administered on 07/20/16 05:21; Start 07/18/16 at 14:00; Stop 07/20/16 at 11:25; Status DC Micafungin Sodium 100 mg/Dextrose 100 ml @ 100 mls/hr Q24H IV Last administered on 07/19/16 15:05; Start 07/18/16 at 14:00; Stop 07/20/16 at 11:25; Status DC Daptomycin/Sodium Chloride (Cubicin/Iv Sodium Chloride 0.9% 50ml) 50 ml @ 100 mls/hr Q24H IV Last administered on 07/19/16 16:56; Start 07/18/16 at 15:00; Stop 07/20/16 at 11:25; Status DC Alteplase, Recombinant (Cathflo) 2 mg 1X ONCE INT CAT Last administered on 07/19 06:24; Start 07/19/16 at 07:00; Stop 07/19/16 at 07:01; Status DC Gentamicin Sulfate 1 each 1 each PRN DAILY PRN MC SEE COMMENTS Last administered on 07/25/16 15:31; Start 07/19/16 at 12:15; Stop 07/25/16 at 16:14 ; Status DC Gentamicin Sulfate/Sodium Chloride (Iv Sodium Chloride 0.9% 100ml) 106.75 ml @ 106.75 mls/hr Q24H IV Last administered on 07/25/16 15:31; Start 07/19/16 at 13 :00; Stop 07/25/16 at 16:12; Status DC Gentamicin Sulfate 1 each 1 each 1X ONCE MC Last administered on 07/19/16 23: 00; Start 07/19/16 at 23:00; Stop 07/19/16 at 23:01; Status DC Sodium Chloride/ Sodium Acetate/ Potassium Chloride/ Potassium Acetate/ Potassium Phosphate/ Magnesium Sulfate/ Calcium Gluconate/ Multivitamins/ Minerals/Chromium/ Copper/Manganese/ Seleni/Zn/Total Parenteral Nutrition/Amino Acids/Dextrose/ Fat Emulsion Intravenous (Sodium Chlori... 1,920 ml @ 80 mls/ hr TPN CONT IV Last administered on 07/19/16 20:51; Start 07/19/16 at 22:00; Stop 07/20/16 at 21:59; Status DC Hyoscyamine (Anaspaz) 0.125 mg PRN Q6HRS PRN PO BLADDER SPASM; Start 07/20/16 at 09:00; Stop 07/31/16 at 15:01; Status DC Phenazopyridine HCl 200 mg 200 mg PRN TID PRN PO BLADDER SPASM Last administered on 07/21/16 20:14; Start 07/20/16 at 09:00; Stop 07/31/16 at 15:01; Status DC Linezolid 300 ml @ 300 mls/hr Q12HR IV Last administered on 07/25/16 09:02; Start 07/20/16 at 12:00; Stop 07/25/16 at 16:12; Status DC Sodium Chloride 220 meq/Sodium Acetate 90 meq/ Potassium Chloride 50 meq/ Potassium Acetate 15 meq/Potassium Phosphate 10 mmol/ Magnesium Sulfate 50 meq/ Calcium Gluconate 3 meq/ Multivitamins/ Minerals 10 ml/ Chromium/Copper/ Manganese/Seleni/ Zn 1 ml/Total Parenteral Nutrition/Amino Acids/Dextro... 1, 920 ml @ 80 mls/hr TPN CONT IV Last administered on 07/20/16 21:30; Start 07/20/16 at 22:00; Stop 07/21/16 at 21:59; Status DC Sodium Chloride/ Sodium Acetate/ Potassium Chloride/ Potassium Acetate/ Potassium Phosphate/ Magnesium Sulfate/ Multivitamins/ Minerals/Chromium/ Copper /Manganese/ Seleni/Zn/Total Parenteral Nutrition/Amino Acids/Dextrose/ Fat Emulsion Intravenous (Sodium Chloride/ Potass... 1,920 ml @ 80 mls/hr TPN CONT IV Last administered on 07/21/16 22:05; Start 07/21/16 at 22:00; Stop at 21:59; Status DC Alteplase, Recombinant 2 mg 2 mg PRN DAILY PRN INT CAT INFLAMMATION Last administered on 07/27/16 11:31; Start 07/21/16 at 15:00 Sodium Chloride 220 meq/Sodium Acetate 90 meq/ Potassium Chloride 50 meq/ Potassium Acetate 15 meq/Potassium Phosphate 10 mmol/ Magnesium Sulfate 50 meq/ Multivitamins/ Minerals 10 ml/ Chromium/Copper/ Manganese/Seleni/ Zn 1 ml/Total Parenteral Nutrition/Amino Acids/Dextrose/ Fat Emuls... 1,920 ml @ 80 mls/hr TPN CONT IV Last administered on 07/22/16 20:53; Start 07/22/16 at 22:00; Stop 07/23/16 at 21:59; Status DC Sodium Chloride/ Sodium Acetate/ Potassium Chloride/ Potassium Acetate/ Potassium Phosphate/ Magnesium Sulfate/ Multivitamins/ Minerals/Chromium/ Copper /Manganese/ Seleni/Zn/Total Parenteral Nutrition/Amino Acids/Dextrose/ Fat Emulsion Intravenous (Sodium Chloride/ Potass... 1,920 ml @ 80 mls/hr TPN CONT IV Last administered on 07/23/16 21:16; Start 07/23/16 at 22:00; Stop 07/24 at 21:59; Status DC Gentamicin Sulfate 1 each 1 each 1X ONCE MC ; Start 07/23/16 at 22:00; Stop 07/23 at 22:01; Status Cancel Sodium Chloride/ Sodium Acetate/ Potassium Chloride/ Potassium Acetate/ Potassium Phosphate/ Magnesium Sulfate/ Multivitamins/ Minerals/Chromium/ Copper /Manganese/ Seleni/Zn/Total Parenteral Nutrition/Amino Acids/Dextrose/ Fat Emulsion Intravenous (Sodium Chloride/ Potass... 1,920 ml @ 80 mls/hr TPN CONT IV Last administered on 07/24/16 21:15; Start 07/24/16 at 22:00; Stop 04/30 at 21:59; Status DC Gentamicin Sulfate 1 each 1X ONCE MC ; Start 07/25/16 at 12:30; Stop 07/25/16 at 12:31; Status Cancel Amlodipine Besylate 5 mg 5 mg DAILY PO Last administered on 07/27/16 11:12; Start 07/25/16 at 12:00; Stop 07/29/16 at 08:44; Status DC Sodium Chloride 220 meq/Sodium Acetate 90 meq/ Potassium Chloride 30 meq/ Potassium Acetate 15 meq/Potassium Phosphate 10 mmol/ Magnesium Sulfate 50 meq/ Multivitamins/ Minerals 10 ml/ Chromium/Copper/ Manganese/Seleni/ Zn 1 ml/Total Parenteral Nutrition/Amino Acids/Dextrose/ Fat Emuls... 1,920 ml @ 80 mls/hr TPN CONT IV Last administered on 07/25/16 22:25; Start 07/25/16 at 22:00; Stop 07/26/16 at 21:59; Status DC Sodium Chloride/ Sodium Acetate/ Potassium Chloride/ Potassium Acetate/ Potassium Phosphate/ Magnesium Sulfate/ Multivitamins/ Minerals/Chromium/ Copper /Manganese/ Seleni/Zn/Total Parenteral Nutrition/Amino Acids/Dextrose/ Fat Emulsion Intravenous (Sodium Chloride/ Potass... 1,920 ml @ 80 mls/hr TPN CONT IV Last administered on 07/26/16 23:16; Start 07/26/16 at 22:00; Stop at 21:59; Status DC Furosemide 20 mg 20 mg 1X ONCE IVP Last administered on 07/27/16 11:31; Start 07/27/16 at 09:00; Stop 07/27/16 at 09:01; Status DC Daptomycin 340 mg/ Sodium Chloride 50 ml @ 100 mls/hr Q24H IV Last administered on 07/29/16 15:05; Start 07/27/16 at 13:00; Stop 07/30/16 at 07:25 ; Status DC Piperacillin Sod/ Tazobactam Sod 3.375 gm/Sodium Chloride 50 ml @ 100 mls/hr Q6HRS IV Last administered on 07/30/16 05:30; Start 07/27/16 at 12:30; Stop at 07:25; Status DC Fluconazole/ Sodium Chloride 100 ml @ 100 mls/hr Q24H IV Last administered on 07/28/16 13:32; Start 07/27/16 at 13:00; Stop 07/29/16 at 00:53; Status DC Sodium Chloride 1,000 ml @ 1,000 mls/hr 1X ONCE IV Last administered on 12:34; Start 07/27/16 at 12:30; Stop 07/27/16 at 13:29; Status DC Sodium Chloride 220 meq/Sodium Acetate 90 meq/ Potassium Chloride 30 meq/ Potassium Acetate 15 meq/Potassium Phosphate 10 mmol/ Magnesium Sulfate 45 meq/ Multivitamins/ Minerals 10 ml/ Chromium/Copper/ Manganese/Seleni/ Zn 1 ml/Total Parenteral Nutrition/Amino Acids/Dextrose/ Fat Emuls... 1,920 ml @ 80 mls/hr TPN CONT IV Last administered on 07/27/16 22:38; Start 07/27/16 at 22:00; Stop 07/28/16 at 21:59; Status DC Sodium Chloride (Iv Sodium Chloride 0.9% 1000ml Bag) 1,000 ml @ 45 mls/hr [id number] IV Last administered on 07/28/16 03:24; Start 07/27/16 at 17:00; Stop 07/28/16 at 10:27; Status DC Acetaminophen 650 mg 650 mg PRN Q6HRS PRN DE fever Last administered on 03:57; Start 07/27/16 at 16:30; Stop 07/29/16 at 08:33; Status DC Sodium Chloride 1,000 ml @ 427.5 mls/ hr Q2H21M IV Last administered on 19:30; Start 07/27/16 at 19:30; Stop 07/27/16 at 23:30; Status DC Sodium Chloride 220 meq/Sodium Acetate 90 meq/ Potassium Chloride 30 meq/ Potassium Acetate 15 meq/Potassium Phosphate 10 mmol/ Magnesium Sulfate 45 meq/ Multivitamins/ Minerals 10 ml/ Chromium/Copper/ Manganese/Seleni/ Zn 1 ml/Total Parenteral Nutrition/Amino Acids/Dextrose/ Fat Emuls... 1,920 ml @ 80 mls/hr TPN CONT IV Last administered on 07/28/16 21:43; Start 07/28/16 at 22:00; Stop 07/29/16 at 21:59; Status DC Micafungin Sodium/ Dextrose (Mycamine) 100 ml @ 100 mls/hr Q24H IV Last administered on 08/03/16 01:27; Start 07/29/16 at 01:00 Lorazepam (Ativan) 0.05 mg PRN Q4HRS PRN IV ANXIETY / AGITATION; Start at 02:30; Stop 07/29/16 at 02:48; Status DC Lorazepam (Ativan) 0.5 mg PRN Q4HRS PRN IV ANXIETY / AGITATION Last administered on 07/29/16 03:18; Start 07/29/16 at 03:00 Acetaminophen (Tylenol) 650 mg PRN Q4HRS PRN [place] MILD PAIN / TEMP; Start at 08:30 Ketorolac Tromethamine (Toradol) 30 mg PRN Q6HRS PRN IV PAIN/FEVER Last administered on 07/30/16 00:50; Start 07/29/16 at 08:30; Stop 07/30/16 at 13:01 ; Status DC Pantoprazole Sodium 40 mg 40 mg DAILYAC IVP Last administered on 08/02/16 08: 57; Start 07/29/16 at 09:00 Sodium Chloride 1,000 ml @ 45 mls/hr [id number] IV Last administered on 09:17; Start 07/29/16 at 08:45; Stop 07/31/16 at 15:01; Status DC Sodium Chloride/ Sodium Acetate/ Potassium Chloride/ Potassium Acetate/ Potassium Phosphate/ Magnesium Sulfate/ Multivitamins/ Minerals/Chromium/ Copper /Manganese/ Seleni/Zn/Total Parenteral Nutrition/Amino Acids/Dextrose/ Fat Emulsion Intravenous (Sodium Chloride/ Potass... 1,920 ml @ 80 mls/hr TPN CONT IV Last administered on 07/29/16 22:06; Start 07/29/16 at 22:00; Stop at 21:59; Status DC Lidocaine/Sodium Bicarbonate 20 ml 20 ml STK-MED ONCE IJ ; Start 07/29/16 at 13: 13; Stop 07/29/16 at 13:14; Status DC Heparin Sodium/ Sodium Chloride 500 ml @ As Directed STK-MED ONCE .ROUTE ; Start 07/29/16 at 13:13; Stop 07/29/16 at 13:14; Status DC Lidocaine/ Epinephrine (Xylocaine 1%-Epi 1:100,000) 20 ml STK-MED ONCE .ROUTE ; Start 07/29/16 at 13:22; Stop 07/29/16 at 13:23; Status DC Midazolam HCl (Versed) 5 mg STK-MED ONCE .ROUTE ; Start 07/29/16 at 13:32; Stop 07/29/16 at 13:33; Status DC Fentanyl Citrate (Fentanyl 5ml Vial) 250 mcg STK-MED ONCE .ROUTE ; Start at 13:32; Stop 07/29/16 at 13:33; Status DC Heparin Sodium/ Sodium Chloride 1,000 unit 1X ONCE IART Last administered on 13:45; Start 07/29/16 at 13:45; Stop 07/29/16 at 13:48; Status DC Midazolam HCl (Versed) 5 mg 1X ONCE IV Last administered on 07/29/16 13:45; Start 07/29/16 at 13:45; Stop 07/29/16 at 13:48; Status DC Fentanyl Citrate (Fentanyl 5ml Vial) 250 mcg 1X ONCE IV Last administered on 13:45; Start 07/29/16 at 13:45; Stop 07/29/16 at 13:48; Status DC Lidocaine/ Epinephrine 20 ml 20 ml 1X ONCE IJ Last administered on 07/29/16 13:45; Start 07/29/16 at 13:45; Stop 07/29/16 at 13:48; Status DC Sodium Chloride 220 meq/Sodium Acetate 90 meq/ Potassium Chloride 15 meq/ Potassium Acetate 30 meq/Potassium Phosphate 10 mmol/ Magnesium Sulfate 45 meq/ Multivitamins/ Minerals 10 ml/ Chromium/Copper/ Manganese/Seleni/ Zn 1 ml/Total Parenteral Nutrition/Amino Acids/Dextrose/ Fat Emuls... 1,920 ml @ 80 mls/hr TPN CONT IV ; Start 07/30/16 at 22:00; Stop 07/31/16 at 21:59; Status DC Norepinephrine Bitartrate 8 mg/ Sodium Chloride 258 ml @ 1.93 mls/hr 1X ONCE IV Last administered on 07/30/16 11:17; Start 07/30/16 at 11:15; Stop at 15:43; Status DC Norepinephrine Bitartrate/Sodium Chloride (Levophed Vial/ Iv Sodium Chloride 0.9 % 250ml) 258 ml @ 0 mls/hr CONT PRN IV SEE I/O RECORD Last administered on 08/02 19:54; Start 07/30/16 at 11:15 Furosemide 60 mg 60 mg 1X ONCE IVP Last administered on 07/30/16 11:14; Start 07/30/16 at 11:15; Stop 07/30/16 at 11:16; Status DC Sodium Chloride 500 ml @ 500 mls/hr Q1H IV Last administered on 07/30/16 17: 04; Start 07/30/16 at 14:30; Stop 07/30/16 at 15:29; Status DC Albumin Human 100 ml @ 100 mls/hr Q8HRS IV Last administered on 07/31/16 05: 37; Start 07/30/16 at 14:30; Stop 07/31/16 at 06:59; Status DC Furosemide/Sodium Chloride (Lasix Drip/Iv Sodium Chloride 0.9% 100ml) 100 ml @ 0 mls/hr CONT PRN IV SEE I/O RECORD Last administered on 07/31/16 03:17; Start 07/30/16 at 14:30; Stop 08/01/16 at 13:19; Status DC Ondansetron HCl (Zofran) 8 mg PRN Q8HRS PRN IV NAUSEA/VOMITING Last administered on 07/30/16 14:38; Start 07/30/16 at 14:30 Sodium Bicarbonate 50 meq 50 meq 1X ONCE IV Last administered on 07/30/16 14: 43; Start 07/30/16 at 14:30; Stop 07/30/16 at 14:31; Status DC Heparin Sodium/ Sodium Chloride 500 ml @ As Directed STK-MED ONCE .ROUTE ; Start 07/30/16 at 14:49; Stop 07/30/16 at 14:50; Status DC Lidocaine HCl 20 ml STK-MED ONCE .ROUTE ; Start 07/30/16 at 14:49; Stop at 14:50; Status DC Midazolam HCl (Versed) 2 mg STK-MED ONCE .ROUTE ; Start 07/30/16 at 15:19; Stop 07/30/16 at 15:20; Status DC Heparin Sodium/ Sodium Chloride 1,000 unit 1X ONCE IART Last administered on 15:44; Start 07/30/16 at 15:45; Stop 07/30/16 at 15:46; Status DC Midazolam HCl (Versed) 1.5 mg 1X ONCE IV Last administered on 07/30/16 15:44 ; Start 07/30/16 at 15:45; Stop 07/30/16 at 15:46; Status DC Lidocaine HCl 20 ml 1X ONCE IJ Last administered on 07/30/16 15:44; Start at 15:45; Stop 07/30/16 at 15:46; Status DC Heparin Sodium (Porcine) 54607 unit 10,000 unit STK-MED ONCE .ROUTE ; Start at 15:54; Stop 07/30/16 at 15:55; Status DC Fentanyl Citrate 30 ml @ 0 mls/hr CONT PRN PRN IV PROTOCOL Last administered on 08/03/16 00:00; Start 07/30/16 at 16:45 Sodium Bicarbonate/ Dextrose 1,150 ml @ 125 mls/hr 1X ONCE IV Last administered on 07/30/16 18:34; Start 07/30/16 at 17:30; Stop 07/31/16 at 02:41 ; Status DC Succinylcholine Chloride 200 mg 200 mg STK-MED ONCE .ROUTE ; Start 07/30/16 at 19:47; Stop 07/30/16 at 19:48; Status DC Propofol 100 ml @ As Directed STK-MED ONCE IV ; Start 07/30/16 at 19:48; Stop 07/30/16 at 19:49; Status DC Midazolam HCl (Versed 100mg/ 100ml Premix) 100 ml @ 0 mls/hr CONT PRN IV SEE I/ O RECORD Last administered on 08/02/16 00:29; Start 07/30/16 at 21:15 Sodium Bicarbonate 50 meq 50 meq 1X ONCE IV Last administered on 07/30/16 22: 15; Start 07/30/16 at 22:30; Stop 07/30/16 at 22:31; Status DC Dopamine HCl/ Dextrose 250 ml @ 11.513 mls/ hr CONT PRN IV SEE I/O RECORD Last administered on 07/31/16 20:16; Start 07/30/16 at 22:15 Sodium Bicarbonate/ Dextrose 1,150 ml @ 125 mls/hr Q9H12M IV Last administered on 08/01/16 09:30; Start 07/31/16 at 03:00; Stop 08/01/16 at 13:19 ; Status DC Propofol (Diprivan) 1,000 mg STK-MED ONCE IV ; Start 07/30/16 at 20:00; Stop at 08:16; Status DC Succinylcholine Chloride 200 mg 200 mg STK-MED ONCE .ROUTE ; Start 07/30/16 at 20:00; Stop 07/31/16 at 08:16; Status DC Tigecycline 50 mg/ Sodium Chloride 50 ml @ 100 mls/hr Q12HR IV Last administered on 08/02/16 20:43; Start 07/31/16 at 21:00 Tigecycline/ Sodium Chloride (Tygacil/Iv Sodium Chloride 0.9% 100ml) 100 ml @ 200 mls/hr 1X ONCE IV Last administered on 07/31/16 09:22; Start 07/31/16 at 09:00; Stop 07/31/16 at 09:29; Status DC Darbepoetin Sarbjit 60 mcg 60 mcg [id number] SQ Last administered on 07/31/16 21:09 ; Start 07/31/16 at 21:00 Albumin Human 100 ml @ 100 mls/hr 1X ONCE IV Last administered on 07/31/16 11:40; Start 07/31/16 at 11:15; Stop 07/31/16 at 12:14; Status DC Albumin Human 100 ml @ 100 mls/hr 1X ONCE IV Last administered on 07/31/16 12:03; Start 07/31/16 at 11:15; Stop 07/31/16 at 12:14; Status DC Sodium Chloride (Iv Sodium Chloride 0.9% 1000ml Bag) 1,000 ml @ 1,000 mls/hr Q1H PRN IV hypotension; Start 07/31/16 at 11:33; Stop 07/31/16 at 17:32; Status DC Info (PHARMACY MONITORING -- do not chart) 1 each PRN DAILY PRN MC SEE COMMENTS ; Start 07/31/16 at 11:45 Info (PHARMACY MONITORING -- do not chart) 1 each PRN DAILY PRN MC SEE COMMENTS ; Start 07/31/16 at 11:45; Status UNV Hydrocortisone Sodium Succinate (Solu-Cortef) 100 mg Q8HRS IV Last administered on 08/03/16 06:24; Start 08/01/16 at 07:00 Albuterol/ Ipratropium (Duoneb) 3 ml RTQID NEB Last administered on 08/03/16 08:55; Start 08/01/16 at 08:00 Albuterol/ Ipratropium 3 ml 3 ml STK-MED ONCE .ROUTE Last administered on 07:34; Start 08/01/16 at 06:59; Stop 08/01/16 at 07:00; Status DC Sodium Chloride 1,000 ml @ 1,000 mls/hr Q1H PRN IV hypotension; Start 08/01/16 at 06:57; Stop 08/01/16 at 12:56; Status DC Albumin Human (Albuminar) 200 ml @ 200 mls/hr 1X PRN PRN IV Hypotension; Start 08/01/16 at 07:00; Stop 08/01/16 at 12:59; Status DC Info (PHARMACY MONITORING -- do not chart) 1 each PRN DAILY PRN MC SEE COMMENTS ; Start 08/01/16 at 07:00; Status UNV Info 1 each 1 each PRN DAILY PRN MC SEE COMMENTS Last administered on 12:45; Start 08/01/16 at 13:30 Sodium Chloride 220 meq/Sodium Acetate 90 meq/ Potassium Chloride 15 meq/ Potassium Acetate 30 meq/Potassium Phosphate 10 mmol/ Magnesium Sulfate 45 meq/ Multivitamins/ Minerals 10 ml/ Chromium/Copper/ Manganese/Seleni/ Zn 1 ml/Total Parenteral Nutrition/Amino Acids/Dextrose/ Fat Emuls... 1,920 ml @ 80 mls/hr TPN CONT IV Last administered on 08/01/16 21:56; Start 08/01/16 at 22:00; Stop 08/02/16 at 21:59; Status DC Potassium Chloride (KCl Premix 20meq) 50 ml @ 50 mls/hr Q1H IV Last administered on 08/01/16 19:05; Start 08/01/16 at 17:00; Stop 08/01/16 at 18:59 ; Status DC Insulin Aspart 0-6 UNITS TIDWMEALS SQ Last administered on 08/02/16 11:33; Start 08/02/16 at 12:00; Stop 08/02/16 at 14:34; Status DC Sodium Chloride 220 meq/Sodium Acetate 90 meq/ Potassium Chloride 15 meq/ Potassium Acetate 30 meq/Magnesium Sulfate 45 meq/ Multivitamins/ Minerals 10 ml / Chromium/Copper/ Manganese/Seleni/ Zn 1 ml/Total Parenteral Nutrition/Amino Acids/Dextrose/ Fat Emulsion Intravenous 1,920 ml @ 80 mls/hr TPN CONT IV Last administered on 08/02/16 21:34; Start 08/02/16 at 22:00; Stop 08/03/16 at 21:59 Levofloxacin/ Dextrose 150 ml @ 100 mls/hr 1X ONCE IV Last administered on 14:35; Start 08/02/16 at 14:00; Stop 08/02/16 at 15:29; Status DC Daptomycin/Sodium Chloride (Cubicin/Iv Sodium Chloride 0.9% 50ml) 50 ml @ 100 mls/hr ONCE ONCE IV Last administered on 08/02/16 14:34; Start 08/02/16 at 15 :00; Stop 08/02/16 at 15:29; Status DC Insulin Aspart 0-6 UNITS Q6HRS SQ Last administered on 08/03/16 06:27; Start 08/02/16 at 18:00 Sodium Chloride (Iv Sodium Chloride 0.9% 1000ml Bag) 1,000 ml @ 1,000 mls/hr Q1H PRN IV hypotension; Start 08/03/16 at 07:26; Stop 08/03/16 at 13:25 Diphenhydramine HCl (Benadryl) 25 mg 1X PRN PRN IV ITCHING; Start 08/03/16 at 07:30; Stop 08/04/16 at 07:29 Diphenhydramine HCl (Benadryl) 25 mg 1X PRN PRN IV ITCHING; Start 08/03/16 at 07:30; Stop 08/04/16 at 07:29 Sodium Chloride (Normal Saline Flush) 10 ml 1X PRN PRN IV AP catheter pack; Start 08/03/16 at 07:30; Stop 08/04/16 at 07:29 Sodium Chloride 10 ml 10 ml 1X PRN PRN IV SPOOL SALVAGER catheter pack; Start 08/03/16 at 07:30; Stop 08/04/16 at 07:29 Sodium Chloride (Iv Sodium Chloride 0.9% 1000ml Bag) 1,000 ml @ 400 mls/hr Q2H30M PRN IV PATENCY; Start 08/03/16 at 07:26; Stop 08/03/16 at 19:25 Info 1 each 1 each PRN DAILY PRN MC SEE COMMENTS; Start 08/03/16 at 07:30; Status UNV Albumin Human (Albuminar) 200 ml @ 200 mls/hr Q2HR IV Last administered on t 09:01; Start 08/03/16 at 08:44; Stop 08/03/16 at 10:59 Active Scripts Active Dilaudid (Hydromorphone Hcl) 4 Mg Tablet 4 Mg PO Q6HRS Phenazopyridine Hcl 200 Mg Tablet 200 Mg PO PRN TID PRN FENTANYL 50mcg/hr (Fentanyl) 1 Each Patch.td72 1 Patch TD Q3DAYS Anaspaz (Hyoscyamine Sulfate) 0.125 Mg Tab.rapdis 0.125 Mg PO Q6HRS PRN Cefpodoxime Proxetil 200 Mg Tablet 200 Mg PO BID Sertraline Hcl 50 Mg Tablet 100 Mg PO DAILY 30 Days Protonix (Pantoprazole Sodium) 40 Mg Tablet.dr 1 Tab PO DAILY Zinc Oxide 56.7 Gm Oint...g. 1 Sang TP BID Lidocaine 35.44 Gm Oint...g. 1 Sang TP BID Ondansetron Odt (Ondansetron) 4 Mg Tab.rapdis 8 Mg PO PRN Q8HRS PRN Gas-X (Simethicone) 80 Mg Tab.chew 80 Mg PO PRN QID PRN Reported Lorazepam 0.5 Mg Tablet 0.5 Mg PO PRN BID PRN Vitals/I & O Vital Sign - Last 24 Hours 08/02/16 08/02/16 08/02/16 08/02/16 09:34 10:00 10:00 11:00 Pulse 80 80 79 Resp 20 B/P 128/60 128/60 130/62 Pulse Ox 97 95 O2 Delivery Ventilator Ventilator 08/02/16 08/02/16 08/02/16 08/02/16 11:00 11:57 12:00 12:00 Temp 95.5 95.9 95.5 95.9 Pulse 78 76 75 Resp 20 20 B/P 126/60 118/61 113/61 Pulse Ox 93 96 100 O2 Delivery Ventilator Ventilator Ventilator 08/02/16 08/02/16 08/02/16 08/02/16 12:00 12:54 13:00 13:00 Pulse 80 83 Resp 20 B/P 122/64 123/62 Pulse Ox 97 96 O2 Delivery Mechanical Ventilator Ventilator Ventilator 08/02/16 08/02/16 08/02/16 08/02/16 14:00 14:00 15:00 15:00 Temp 96.6 96.6 96.6 96.6 Pulse 81 82 83 82 Resp 20 20 B/P 100/55 101/56 97/56 97/54 Pulse Ox 98 95 O2 Delivery Ventilator Ventilator 08/02/16 08/02/16 08/02/16 08/02/16 15:50 16:00 16:00 16:00 Temp 96.6 96.6 Pulse 84 82 Resp 20 20 B/P 96/56 97/53 Pulse Ox 96 99 O2 Delivery Ventilator Mechanical Ventilator Ventilator O2 Flow Rate 50.0 08/02/16 08/02/16 208/02/16 16:02 16:24 17:00 17:00 Temp 96.8 96.8 Pulse 91 90 Resp 20 B/P 103/55 102/53 Pulse Ox 97 97 O2 Delivery Ventilator Ventilator Ventilator O2 Flow Rate 50.0 08/02/16 08/02/16 08/02/16 08/02/16 17:42 18:00 18:00 18:59 Temp 97.2 97.2 97.2 97.2 Pulse 89 88 89 Resp 20 20 B/P 99/53 99/53 98/51 Pulse Ox 97 97 97 O2 Delivery Ventilator Ventilator Ventilator 08/02/16 08/02/16 208/02/16 19:00 20:00 20:00 20:00 Temp 97.3 97.3 Pulse 89 89 89 Resp 24 B/P 98/52 94/52 94/52 Pulse Ox 97 O2 Delivery Mechanical Ventilator Ventilator 08/02/16 08/02/16 208/02/16 20:51 21:00 21:00 22:00 Temp 97.9 97.9 Pulse 93 93 94 Resp 23 B/P 97/51 97/51 98/52 Pulse Ox 100 98 O2 Delivery Ventilator Ventilator 08/02/16 08/02/16 2 2 22:00 23:00 23:00 23:49 Temp 98.2 98.4 98.2 98.4 Pulse 94 93 93 Resp 24 26 B/P 98/52 103/55 103/55 Pulse Ox 97 98 100 O2 Delivery Ventilator Ventilator Ventilator 08/03/16 08/03/16 08/03/16 08/03/16 00:00 00:00 00:00 00:01 Temp 98.6 98.6 Pulse 90 90 Resp 24 22 B/P 101/54 101/54 Pulse Ox 100 98 O2 Delivery Mechanical Ventilator Ventilator O2 Flow Rate 50.0 08/03/16 08/03/16 08/03/16 08/03/16 00:30 01:00 01:00 02:00 Temp 98.6 98.2 98.6 98.2 Pulse 91 90 87 Resp 21 B/P 109/59 109/59 116/64 Pulse Ox 98 98 98 O2 Delivery Ventilator Ventilator 08/03/16 08/03/16 08/03/16 08/03/16 02:00 02:23 03:00 04:00 Temp 98.1 97.7 98.1 97.7 Pulse 87 90 92 Resp 20 20 B/P 116/64 122/66 128/68 Pulse Ox 97 98 98 O2 Delivery Ventilator Ventilator Ventilator 08/03/16 08/03/16 08/03/16 08/03/16 04:00 04:00 04:05 04:24 B/P Pulse Ox 98 O2 Delivery Mechanical Ventilator Ventilator 08/03/16 08/03/16 08/03/16 08/03/16 05:05 05:05 06:00 06:00 Temp 98.2 96.8 98.2 96.8 Pulse 81 80 Resp 20 20 B/P 117/58 102/52 Pulse Ox 98 98 O2 Delivery Ventilator Ventilator 08/03/16 08/03/16 06:30 06:30 Temp 96.8 96.8 Pulse 82 Resp 20 B/P 99/49 Pulse Ox 98 O2 Delivery Ventilator Intake and Output 08/02/16 08/02/16 08/03/16 15:00 23:00 07:00 Intake Total 250 ml 1598 ml 1390 ml Output Total 160 ml 195 ml 250 ml Balance 90 ml 1403 ml 1140 ml BENITA LUTZ MD Aug 03, 2016 09:21
--- NOTE | 2016-08-03 09:28 | PDOC ---
Dialysis Progress Note Dialysis Note Dialysis Note Seen on Hemodialysis, tolerating treatment Okay for now Vitals on Hemodialysis: 93/48 96 by mishel General Appearance: SEdated and intubated Neck: min JVD ++ JVP Chest: CTA Aditya, rare rales Heart: S1 S2 Abdomen - Soft NTND Extremities - ++ Edema ARF/ ATN : Dialysis as below F 180 NR 3.0 Hrs 3 K 2.5 Ca 140 Na 30 HC03 Qb 350 + Qd 500+ Heparin 0 Units Uf 2-3 Kgs or to dry weight as tolerated May give 25-50 gms of 25% Albumin if needed to maintain Hemodynamic stability Treatment plan reviewed and discussed with community recreation coordinator Will reval on HD Vitals Vital Signs Vital Signs Date Time Temp Pulse Resp B/P Pulse Ox O2 Delivery O2 Flow Rate FiO2 08/03/16 06:30 08/03/16 06:30 96.8 82 20 98 Ventilator 96.8 08/03/16 00:00 50.0 Labs Last Labs Laboratory Tests Test 08/01/16 16:00 08/02/16 05:45 08/02/16 06:39 08/02/16 11:16 Sodium Level 142mmol/L (136-145) 144mmol/L (136-145) Potassium Level 3.2mmol/L (3.5-5.1) 4.2mmol/L (3.5-5.1) Chloride Level 101mmol/L (98-107) 103mmol/L (98-107) Carbon Dioxide Level 31mmol/L (21-32) 27mmol/L (21-32) Anion Gap 10 (6-14) 14 (6-14) Blood Urea Nitrogen 21mg/dL (7-20) 35mg/dL (7-20) Creatinine 1.4mg/dL (0.6-1.0) 1.8mg/dL (0.6-1.0) Estimated GFR (Cockcroft-Gault) 46.3 34.6 Glucose Level 61mg/dL (70-99) 204mg/dL (70-99) Lactic Acid Level 4.3mmol/L (0.4-2.0) 5.4mmol/L (0.4-2.0) Calcium Level 8.1mg/dL (8.5-10.1) 7.7mg/dL (8.5-10.1) White Blood Count 14.5x10^3/uL (4.0-11.0) Red Blood Count 3.69x10^6/uL (3.50-5.40) Hemoglobin 9.5g/dL (12.0-15.5) Hematocrit 29.1% (36.0-47.0) Mean Corpuscular Volume 79fL (79-100) Mean Corpuscular Hemoglobin 26pg (25-35) Mean Corpuscular Hemoglobin Concent 33g/dL (31-37) Red Cell Distribution Width 20.0% (11.5-14.5) Platelet Count 46x10^3/uL (140-400) Neutrophils (%) (Auto) 79% (31-73) Lymphocytes (%) (Auto) 14% (24-48) Monocytes (%) (Auto) 6% (0-9) Eosinophils (%) (Auto) 0% (0-3) Basophils (%) (Auto) 1% (0-3) Neutrophils # (Auto) 11.5x10^3uL (1.8-7.7) Lymphocytes # (Auto) 2.0x10^3/uL (1.0-4.8) Monocytes # (Auto) 0.9x10^3/uL (0.0-1.1) Eosinophils # (Auto) 0.0x10^3/uL (0.0-0.7) Basophils # (Auto) 0.1x10^3/uL (0.0-0.2) Segmented Neutrophils % 77% (35-66) Band Neutrophils % 10% (0-9) Lymphocytes % 8% (24-48) Monocytes % 4% (0-10) Basophils % 1% (0-3) Platelet Estimate Decreased (ADEQUATE) Anisocytosis Slight Phosphorus Level 5.1mg/dL (2.6-4.7) Magnesium Level 2.1mg/dL (1.8-2.4) Thyroid Stimulating Hormone (TSH) 0.509uIU/mL (0.358-3.74) Free Thyroxine 0.96ng/dL (0.76-1.46) O2 Saturation 96% (92-99) Arterial Blood pH 7.50 (7.35-7.45) Arterial Blood pCO2 at Patient Temp 37mmHg (35-46) Arterial Blood pO2 at Patient Temp 89mmHg (65-108) Arterial Blood HCO3 28mmol/L (21-28) Arterial Blood Base Excess 4mmol/L (-3-3) FiO2 60 Glucose (Fingerstick) 191mg/dL (70-99) Test 08/02/16 17:46 08/03/16 00:01 08/03/16 06:15 08/03/16 06:24 Glucose (Fingerstick) 197mg/dL (70-99) 126mg/dL (70-99) 172mg/dL (70-99) White Blood Count 14.1x10^3/uL (4.0-11.0) Red Blood Count 3.54x10^6/uL (3.50-5.40) Hemoglobin 9.0g/dL (12.0-15.5) Hematocrit 28.1% (36.0-47.0) Mean Corpuscular Volume 79fL (79-100) Mean Corpuscular Hemoglobin 25pg (25-35) Mean Corpuscular Hemoglobin Concent 32g/dL (31-37) Red Cell Distribution Width 19.9% (11.5-14.5) Platelet Count 58x10^3/uL (140-400) Neutrophils (%) (Auto) 83% (31-73) Lymphocytes (%) (Auto) 11% (24-48) Monocytes (%) (Auto) 6% (0-9) Eosinophils (%) (Auto) 0% (0-3) Basophils (%) (Auto) 0% (0-3) Neutrophils # (Auto) 11.7x10^3uL (1.8-7.7) Lymphocytes # (Auto) 1.5x10^3/uL (1.0-4.8) Monocytes # (Auto) 0.8x10^3/uL (0.0-1.1) Eosinophils # (Auto) 0.0x10^3/uL (0.0-0.7) Basophils # (Auto) 0.1x10^3/uL (0.0-0.2) Sodium Level 150mmol/L (136-145) Potassium Level 4.1mmol/L (3.5-5.1) Chloride Level 109mmol/L (98-107) Carbon Dioxide Level 30mmol/L (21-32) Anion Gap 11 (6-14) Blood Urea Nitrogen 74mg/dL (7-20) Creatinine 2.2mg/dL (0.6-1.0) Estimated GFR (Cockcroft-Gault) 27.5 Glucose Level 184mg/dL (70-99) Calcium Level 8.0mg/dL (8.5-10.1) Phosphorus Level 5.7mg/dL (2.6-4.7) Magnesium Level 3.5mg/dL (1.8-2.4) Test 08/03/16 08:15 Prothrombin Time 21.2SEC (11.7-14.0) Prothromb Time International Ratio 2.0 (0.8-1.1) Fibrinogen < 60mg/dL (200-440) Lactic Acid Level 2.9mmol/L (0.4-2.0) Laboratory Tests Test 08/02/16 11:16 08/02/16 17:46 08/03/16 00:01 08/03/16 06:15 Glucose (Fingerstick) 191mg/dL (70-99) 197mg/dL (70-99) 126mg/dL (70-99) White Blood Count 14.1x10^3/uL (4.0-11.0) Red Blood Count 3.54x10^6/uL (3.50-5.40) Hemoglobin 9.0g/dL (12.0-15.5) Hematocrit 28.1% (36.0-47.0) Mean Corpuscular Volume 79fL (79-100) Mean Corpuscular Hemoglobin 25pg (25-35) Mean Corpuscular Hemoglobin Concent 32g/dL (31-37) Red Cell Distribution Width 19.9% (11.5-14.5) Platelet Count 58x10^3/uL (140-400) Neutrophils (%) (Auto) 83% (31-73) Lymphocytes (%) (Auto) 11% (24-48) Monocytes (%) (Auto) 6% (0-9) Eosinophils (%) (Auto) 0% (0-3) Basophils (%) (Auto) 0% (0-3) Neutrophils # (Auto) 11.7x10^3uL (1.8-7.7) Lymphocytes # (Auto) 1.5x10^3/uL (1.0-4.8) Monocytes # (Auto) 0.8x10^3/uL (0.0-1.1) Eosinophils # (Auto) 0.0x10^3/uL (0.0-0.7) Basophils # (Auto) 0.1x10^3/uL (0.0-0.2) Sodium Level 150mmol/L (136-145) Potassium Level 4.1mmol/L (3.5-5.1) Chloride Level 109mmol/L (98-107) Carbon Dioxide Level 30mmol/L (21-32) Anion Gap 11 (6-14) Blood Urea Nitrogen 74mg/dL (7-20) Creatinine 2.2mg/dL (0.6-1.0) Estimated GFR (Cockcroft-Gault) 27.5 Glucose Level 184mg/dL (70-99) Calcium Level 8.0mg/dL (8.5-10.1) Phosphorus Level 5.7mg/dL (2.6-4.7) Magnesium Level 3.5mg/dL (1.8-2.4) Test 08/03/16 06:24 08/03/16 08:15 Glucose (Fingerstick) 172mg/dL (70-99) Prothrombin Time 21.2SEC (11.7-14.0) Prothromb Time International Ratio 2.0 (0.8-1.1) Fibrinogen < 60mg/dL (200-440) Lactic Acid Level 2.9mmol/L (0.4-2.0) Assessment Assessment Problems Medical Problems: (1) Abdominal pain Status: Acute (2) Enterocutaneous fistula Status: Acute (3) Sepsis Status: Acute (4) Urinary tract infection Status: Acute (5) UTI (urinary tract infection) Status: Acute Problems: Plan Plan of Care Problems Medical Problems: (1) Abdominal pain Status: Acute (2) Enterocutaneous fistula Status: Acute (3) Sepsis Status: Acute (4) Urinary tract infection Status: Acute (5) UTI (urinary tract infection) Status: Acute LATOSHA TATUM MD Aug 03, 2016 09:28
[2016-08-03] MEDS: PANTOPRAZOLE IV PUSH 40 MG VIAL. IVP SCH (12:04)
[2016-08-03] MEDS: LIDOCAINE 5% TOPICAL OINTMENT 35GM TUBE. TP SCH ×2 (12:04→22:53)
[2016-08-03] MEDS: ZINC OXIDE 20% TOPICAL OINTMENT 28GM TUBE. TP SCH ×2 (12:04→22:53)
[2016-08-03] MEDS: TIGECYCLINE 50 MG in IV NORMAL SALINE 50ML 50 ML IV SCH ×2 (12:04→22:51)
[2016-08-03] MEDS: MIDAZOLAM PREMIX 100 ML IV PRN (12:18)
--- NOTE | 2016-08-03 12:58 | PDOC ---
PROGRESS NOTES Subjective Subjective Sedated and mechanically ventilated and TPN dependant. She has been hypotensive and is requiring pressor drips and hydrocortisone for maintenance of pressures. Her urine output has decreased in the last 24 hours and was getting dialysis at time of exam. Objective Objective Vital Signs Date Time Temp Pulse Resp B/P Pulse Ox O2 Delivery O2 Flow Rate FiO2 08/03/16 11:00 97.7 96 20 100/54 99 Ventilator 97.7 08/03/16 00:00 50.0 Intake and Output 08/03/16 07:00 Intake Total 3238 ml Output Total 605 ml Balance 2633 ml IV Total 3015 ml Other 223 ml Output Urine Total 605 ml Physical Exam Heart: Regular rate, Normal S1, Normal S2, No murmurs Extremities: Other (peripheral edema of upper and lower extremities) General: Other (Sedated and ventilated) Lungs: Other (bilateral rales, on vent) Neck: Other (mild JVD) Assessment Assessment Patient in septic shock requiring sedation/ventilation and maintenance of pressures with Levophed and hydrocortisone. From a cardiac standpoint her last Echo showed only mild diastolic dysfunction with normal systolic function and EF of ~69%. Problems Medical Problems: (1) Abdominal pain Status: Acute (2) Enterocutaneous fistula Status: Acute (3) Sepsis Status: Acute (4) Urinary tract infection Status: Acute (5) UTI (urinary tract infection) Status: Acute Plan Plan of Care Agree with current plan of care. No changes at this time. Will continue to closely monitor. Comment Review of Relevant I have reviewed the following items lucila (where applicable) has been applied. Labs Laboratory Tests Test 08/01/16 16:00 08/02/16 05:45 08/02/16 06:39 08/02/16 11:16 Sodium Level 142mmol/L (136-145) 144mmol/L (136-145) Potassium Level 3.2mmol/L (3.5-5.1) 4.2mmol/L (3.5-5.1) Chloride Level 101mmol/L (98-107) 103mmol/L (98-107) Carbon Dioxide Level 31mmol/L (21-32) 27mmol/L (21-32) Anion Gap 10 (6-14) 14 (6-14) Blood Urea Nitrogen 21mg/dL (7-20) 35mg/dL (7-20) Creatinine 1.4mg/dL (0.6-1.0) 1.8mg/dL (0.6-1.0) Estimated GFR (Cockcroft-Gault) 46.3 34.6 Glucose Level 61mg/dL (70-99) 204mg/dL (70-99) Lactic Acid Level 4.3mmol/L (0.4-2.0) 5.4mmol/L (0.4-2.0) Calcium Level 8.1mg/dL (8.5-10.1) 7.7mg/dL (8.5-10.1) White Blood Count 14.5x10^3/uL (4.0-11.0) Red Blood Count 3.69x10^6/uL (3.50-5.40) Hemoglobin 9.5g/dL (12.0-15.5) Hematocrit 29.1% (36.0-47.0) Mean Corpuscular Volume 79fL (79-100) Mean Corpuscular Hemoglobin 26pg (25-35) Mean Corpuscular Hemoglobin Concent 33g/dL (31-37) Red Cell Distribution Width 20.0% (11.5-14.5) Platelet Count 46x10^3/uL (140-400) Neutrophils (%) (Auto) 79% (31-73) Lymphocytes (%) (Auto) 14% (24-48) Monocytes (%) (Auto) 6% (0-9) Eosinophils (%) (Auto) 0% (0-3) Basophils (%) (Auto) 1% (0-3) Neutrophils # (Auto) 11.5x10^3uL (1.8-7.7) Lymphocytes # (Auto) 2.0x10^3/uL (1.0-4.8) Monocytes # (Auto) 0.9x10^3/uL (0.0-1.1) Eosinophils # (Auto) 0.0x10^3/uL (0.0-0.7) Basophils # (Auto) 0.1x10^3/uL (0.0-0.2) Segmented Neutrophils % 77% (35-66) Band Neutrophils % 10% (0-9) Lymphocytes % 8% (24-48) Monocytes % 4% (0-10) Basophils % 1% (0-3) Platelet Estimate Decreased (ADEQUATE) Anisocytosis Slight Phosphorus Level 5.1mg/dL (2.6-4.7) Magnesium Level 2.1mg/dL (1.8-2.4) Thyroid Stimulating Hormone (TSH) 0.509uIU/mL (0.358-3.74) Free Thyroxine 0.96ng/dL (0.76-1.46) O2 Saturation 96% (92-99) Arterial Blood pH 7.50 (7.35-7.45) Arterial Blood pCO2 at Patient Temp 37mmHg (35-46) Arterial Blood pO2 at Patient Temp 89mmHg (65-108) Arterial Blood HCO3 28mmol/L (21-28) Arterial Blood Base Excess 4mmol/L (-3-3) FiO2 60 Glucose (Fingerstick) 191mg/dL (70-99) Test 08/02/16 17:46 08/03/16 00:01 08/03/16 06:15 08/03/16 06:24 Glucose (Fingerstick) 197mg/dL (70-99) 126mg/dL (70-99) 172mg/dL (70-99) White Blood Count 14.1x10^3/uL (4.0-11.0) Red Blood Count 3.54x10^6/uL (3.50-5.40) Hemoglobin 9.0g/dL (12.0-15.5) Hematocrit 28.1% (36.0-47.0) Mean Corpuscular Volume 79fL (79-100) Mean Corpuscular Hemoglobin 25pg (25-35) Mean Corpuscular Hemoglobin Concent 32g/dL (31-37) Red Cell Distribution Width 19.9% (11.5-14.5) Platelet Count 58x10^3/uL (140-400) Neutrophils (%) (Auto) 83% (31-73) Lymphocytes (%) (Auto) 11% (24-48) Monocytes (%) (Auto) 6% (0-9) Eosinophils (%) (Auto) 0% (0-3) Basophils (%) (Auto) 0% (0-3) Neutrophils # (Auto) 11.7x10^3uL (1.8-7.7) Lymphocytes # (Auto) 1.5x10^3/uL (1.0-4.8) Monocytes # (Auto) 0.8x10^3/uL (0.0-1.1) Eosinophils # (Auto) 0.0x10^3/uL (0.0-0.7) Basophils # (Auto) 0.1x10^3/uL (0.0-0.2) Sodium Level 150mmol/L (136-145) Potassium Level 4.1mmol/L (3.5-5.1) Chloride Level 109mmol/L (98-107) Carbon Dioxide Level 30mmol/L (21-32) Anion Gap 11 (6-14) Blood Urea Nitrogen 74mg/dL (7-20) Creatinine 2.2mg/dL (0.6-1.0) Estimated GFR (Cockcroft-Gault) 27.5 Glucose Level 184mg/dL (70-99) Calcium Level 8.0mg/dL (8.5-10.1) Phosphorus Level 5.7mg/dL (2.6-4.7) Magnesium Level 3.5mg/dL (1.8-2.4) Test 08/03/16 08:15 08/03/16 08:40 Prothrombin Time 21.2SEC (11.7-14.0) Prothromb Time International Ratio 2.0 (0.8-1.1) Fibrinogen < 60mg/dL (200-440) Lactic Acid Level 2.9mmol/L (0.4-2.0) O2 Saturation 98% (92-99) Arterial Blood pH 7.46 (7.35-7.45) Arterial Blood pCO2 at Patient Temp 36mmHg (35-46) Arterial Blood pO2 at Patient Temp 137mmHg (65-108) Arterial Blood HCO3 25mmol/L (21-28) Arterial Blood Base Excess 1mmol/L (-3-3) FiO2 50 Laboratory Tests Test 08/02/16 17:46 08/03/16 00:01 08/03/16 06:15 08/03/16 06:24 Glucose (Fingerstick) 197mg/dL (70-99) 126mg/dL (70-99) 172mg/dL (70-99) White Blood Count 14.1x10^3/uL (4.0-11.0) Red Blood Count 3.54x10^6/uL (3.50-5.40) Hemoglobin 9.0g/dL (12.0-15.5) Hematocrit 28.1% (36.0-47.0) Mean Corpuscular Volume 79fL (79-100) Mean Corpuscular Hemoglobin 25pg (25-35) Mean Corpuscular Hemoglobin Concent 32g/dL (31-37) Red Cell Distribution Width 19.9% (11.5-14.5) Platelet Count 58x10^3/uL (140-400) Neutrophils (%) (Auto) 83% (31-73) Lymphocytes (%) (Auto) 11% (24-48) Monocytes (%) (Auto) 6% (0-9) Eosinophils (%) (Auto) 0% (0-3) Basophils (%) (Auto) 0% (0-3) Neutrophils # (Auto) 11.7x10^3uL (1.8-7.7) Lymphocytes # (Auto) 1.5x10^3/uL (1.0-4.8) Monocytes # (Auto) 0.8x10^3/uL (0.0-1.1) Eosinophils # (Auto) 0.0x10^3/uL (0.0-0.7) Basophils # (Auto) 0.1x10^3/uL (0.0-0.2) Sodium Level 150mmol/L (136-145) Potassium Level 4.1mmol/L (3.5-5.1) Chloride Level 109mmol/L (98-107) Carbon Dioxide Level 30mmol/L (21-32) Anion Gap 11 (6-14) Blood Urea Nitrogen 74mg/dL (7-20) Creatinine 2.2mg/dL (0.6-1.0) Estimated GFR (Cockcroft-Gault) 27.5 Glucose Level 184mg/dL (70-99) Calcium Level 8.0mg/dL (8.5-10.1) Phosphorus Level 5.7mg/dL (2.6-4.7) Magnesium Level 3.5mg/dL (1.8-2.4) Test 08/03/16 08:15 08/03/16 08:40 Prothrombin Time 21.2SEC (11.7-14.0) Prothromb Time International Ratio 2.0 (0.8-1.1) Fibrinogen < 60mg/dL (200-440) Lactic Acid Level 2.9mmol/L (0.4-2.0) O2 Saturation 98% (92-99) Arterial Blood pH 7.46 (7.35-7.45) Arterial Blood pCO2 at Patient Temp 36mmHg (35-46) Arterial Blood pO2 at Patient Temp 137mmHg (65-108) Arterial Blood HCO3 25mmol/L (21-28) Arterial Blood Base Excess 1mmol/L (-3-3) FiO2 50 Microbiology 08/01/16 Blood Culture - Preliminary, Resulted NO GROWTH AFTER 2 DAYS 07/15/16 Urine Culture - Final, Complete 07/15/16 Urine Culture Result 1 (ROYA) - Final, Complete 07/15/16 Urine Culture Result 2 (ROYA) - Final, Complete 07/15/16 Antimicrobic Susceptibility - Final, Complete 07/29/16 Aerobic Culture - Final, Complete 07/29/16 Aerobic Culture Result 1 (ROYA) - Final, Complete Medications Current Medications Piperacillin Sod/ Tazobactam Sod/ Sodium Chloride (Zosyn/Iv Sodium Chloride 0.9 % 100ml) 100 ml @ 200 mls/hr 1X ONCE IV Last administered on 07/15/16 22:56; Start 07/15/16 at 22:00; Stop 07/15/16 at 22:29; Status DC Fentanyl Citrate 50 mcg 50 mcg PRN Q15MIN PRN IV PAIN GREATER THAN 3/10 Last administered on 07/16/16 00:30; Start 07/15/16 at 21:45; Stop 07/16/16 at 02:00; Status DC Sodium Chloride 1,000 ml @ 1,000 mls/hr 1X ONCE IV Last administered on 21:59; Start 07/15/16 at 22:00; Stop 07/15/16 at 22:59; Status DC Sodium Chloride (Iv Sodium Chloride 0.9% 500ml Bag) 500 ml @ 500 mls/hr 1X ONCE IV Last administered on 07/15/16 22:00; Start 07/15/16 at 22:00; Stop at 22:59; Status DC Ondansetron HCl (Zofran) 4 mg PRN Q8HRS PRN IV NAUSEA/VOMITING; Start 07/15/16 at 23:30; Stop 07/16/16 at 08:52; Status DC Fentanyl Citrate 50 mcg 50 mcg PRN Q2HR PRN IV SEVERE PAIN Last administered on 07/16/16 08:10; Start 07/15/16 at 23:30; Stop 07/16/16 at 08:52; Status DC Sodium Chloride (Iv Sodium Chloride 0.9% 1000ml Bag) 1,000 ml @ 150 mls/hr Q6H40M IV Last administered on 07/15/16 02:00; Start 07/15/16 at 23:45; Stop 07/16/16 at 08:52; Status DC Acetaminophen (Tylenol) 650 mg PRN Q4HRS PRN PO FEVER; Start 07/15/16 at 23:30; Stop 07/16/16 at 23:29; Status DC Info (Do NOT chart on this placeholder) 1 each PRN DAILY PRN MC NEEDS VERIFICATION; Start 07/16/16 at 03:00; Status Cancel Acetaminophen 650 mg 650 mg PRN Q4HRS PRN PO MILD PAIN / TEMP Last administered on 07/28/16 07:42; Start 07/16/16 at 08:45; Stop 07/29/16 at 08:33 ; Status DC Piperacillin Sod/ Tazobactam Sod 3.375 gm/Sodium Chloride 50 ml @ 100 mls/hr Q6HRS IV Last administered on 07/18/16 05:50; Start 07/16/16 at 10:00; Stop 07/18 at 13:28; Status DC Linezolid (Zyvox Premix) 300 ml @ 300 mls/hr Q12HR IV Last administered on 07/18 08:34; Start 07/16/16 at 10:00; Stop 07/18/16 at 13:28; Status DC Hydromorphone HCl (Dilaudid) 2 mg PRN Q4HRS PRN IV MODERATE PAIN Last administered on 07/28/16 23:33; Start 07/16/16 at 08:45 Hydromorphone HCl (Dilaudid) 4 mg PRN Q4HRS PRN IV SEVERE PAIN Last administered on 07/30/16 09:23; Start 07/16/16 at 08:45; Stop 07/31/16 at 15:01 ; Status DC Pantoprazole Sodium (Protonix) 40 mg DAILYAC PO Last administered on 07/27/16 11:11; Start 07/16/16 at 09:30; Stop 07/29/16 at 08:44; Status DC Hyoscyamine (Anaspaz) 0.125 mg Q6HRS PO Last administered on 07/20/16 05:20; Start 07/16/16 at 12:00; Stop 07/20/16 at 08:58; Status DC Phenazopyridine HCl (Pyridium) 200 mg TID PO Last administered on 07/20/16 08: 25; Start 07/16/16 at 09:30; Stop 07/20/16 at 08:58; Status DC Lorazepam (Ativan) 0.5 mg PRN BID PRN PO ANXIETY / AGITATION Last administered on 07/29/16 02:16; Start 07/16/16 at 08:45; Stop 07/31/16 at 15:01; Status DC Simethicone (Gas-X) 80 mg PRN Q4HRS PRN PO GAS / BLOATING Last administered on 07/24/16 22:30; Start 07/16/16 at 08:45; Stop 07/31/16 at 15:01; Status DC Zolpidem Tartrate 5 mg 5 mg PRN QHS PRN PO INSOMNIA Last administered on 23:14; Start 07/16/16 at 08:45; Stop 07/31/16 at 15:01; Status DC Potassium Chloride/Dextrose/ Sod Cl 1,000 ml @ 80 mls/hr [id number] IV Last administered on 07/16/16 10:54; Start 07/16/16 at 09:30; Stop 07/16/16 at 21:59; Status DC Fluconazole/ Sodium Chloride (Diflucan 200mg/ 100ml Premix) 100 ml @ 100 mls/ hr Q24H IV Last administered on 07/18/16 11:43; Start 07/16/16 at 11:00; Stop at 13:28; Status DC Info 1 each 1 each PRN DAILY PRN MC SEE COMMENTS Last administered on 12:41; Start 07/16/16 at 10:00; Stop 08/01/16 at 11:24; Status DC Sodium Chloride 220 meq/Sodium Acetate 90 meq/ Potassium Chloride 50 meq/ Potassium Acetate 15 meq/Potassium Phosphate 10 mmol/ Magnesium Sulfate 50 meq/ Calcium Gluconate 6 meq/ Multivitamins/ Minerals 10 ml/ Chromium/Copper/ Manganese/Seleni/ Zn 1 ml/Total Parenteral Nutrition/Amino Acids/Dextro... 1, 920 ml @ 80 mls/hr TPN CONT IV ; Start 07/16/16 at 22:00; Stop 07/16/16 at 22:00 ; Status DC Sodium Chloride/ Sodium Acetate/ Potassium Chloride/ Potassium Acetate/ Potassium Phosphate/ Magnesium Sulfate/ Calcium Gluconate/ Multivitamins/ Minerals/Chromium/ Copper/Manganese/ Seleni/Zn/Total Parenteral Nutrition/Amino Acids/Dextrose/ Fat Emulsion Intravenous (Sodium Chlori... 1,820 ml @ 75.833 mls/ hr TPN CONT IV Last administered on 07/16/16 21:03; Start 07/16/16 at 22: 00; Stop 07/17/16 at 21:59; Status DC Ondansetron HCl (Zofran) 4 mg PRN Q6HRS PRN IV NAUSEA/VOMITING Last administered on 07/21/16 08:48; Start 07/16/16 at 17:15; Stop 07/31/16 at 15:01; Status DC Diphenhydramine HCl (Benadryl) 25 mg PRN Q6HRS PRN PO ITCHING Last administered on 07/25/16 23:38; Start 07/16/16 at 17:45; Stop 07/31/16 at 15:01 ; Status DC Lidocaine (Xylocaine) 1 sang BID TP Last administered on 08/03/16 12:04; Start 07/17/16 at 09:00 Zinc Oxide 1 sang 1 sang BID TP Last administered on 08/03/16 12:04; Start at 09:30 Sodium Chloride/ Sodium Acetate/ Potassium Chloride/ Potassium Acetate/ Potassium Phosphate/ Magnesium Sulfate/ Calcium Gluconate/ Multivitamins/ Minerals/Chromium/ Copper/Manganese/ Seleni/Zn/Total Parenteral Nutrition/Amino Acids/Dextrose/ Fat Emulsion Intravenous (Sodium Chlori... 1,920 ml @ 80 mls/ hr TPN CONT IV Last administered on 07/17/16 22:13; Start 07/17/16 at 22:00; Stop 07/18/16 at 21:59; Status DC Furosemide 40 mg 40 mg 1X ONCE IVP Last administered on 07/18/16 11:43; Start 07/18/16 at 11:00; Stop 07/18/16 at 11:07; Status DC Sodium Chloride 220 meq/Sodium Acetate 90 meq/ Potassium Chloride 50 meq/ Potassium Acetate 15 meq/Potassium Phosphate 10 mmol/ Magnesium Sulfate 50 meq/ Calcium Gluconate 3 meq/ Multivitamins/ Minerals 10 ml/ Chromium/Copper/ Manganese/Seleni/ Zn 1 ml/Total Parenteral Nutrition/Amino Acids/Dextro... 1, 920 ml @ 80 mls/hr TPN CONT IV Last administered on 07/19/16 00:03; Start 07/18/16 at 22:00; Stop 07/19/16 at 21:59; Status DC Meropenem 1 gm/ Sodium Chloride 100 ml @ 200 mls/hr Q8HRS IV Last administered on 07/20/16 05:21; Start 07/18/16 at 14:00; Stop 07/20/16 at 11:25; Status DC Micafungin Sodium 100 mg/Dextrose 100 ml @ 100 mls/hr Q24H IV Last administered on 07/19/16 15:05; Start 07/18/16 at 14:00; Stop 07/20/16 at 11:25; Status DC Daptomycin/Sodium Chloride (Cubicin/Iv Sodium Chloride 0.9% 50ml) 50 ml @ 100 mls/hr Q24H IV Last administered on 07/19/16 16:56; Start 07/18/16 at 15:00; Stop 07/20/16 at 11:25; Status DC Alteplase, Recombinant (Cathflo) 2 mg 1X ONCE INT CAT Last administered on 07/19 06:24; Start 07/19/16 at 07:00; Stop 07/19/16 at 07:01; Status DC Gentamicin Sulfate 1 each 1 each PRN DAILY PRN MC SEE COMMENTS Last administered on 07/25/16 15:31; Start 07/19/16 at 12:15; Stop 07/25/16 at 16:14 ; Status DC Gentamicin Sulfate/Sodium Chloride (Iv Sodium Chloride 0.9% 100ml) 106.75 ml @ 106.75 mls/hr Q24H IV Last administered on 07/25/16 15:31; Start 07/19/16 at 13 :00; Stop 07/25/16 at 16:12; Status DC Gentamicin Sulfate 1 each 1 each 1X ONCE MC Last administered on 07/19/16 23: 00; Start 07/19/16 at 23:00; Stop 07/19/16 at 23:01; Status DC Sodium Chloride/ Sodium Acetate/ Potassium Chloride/ Potassium Acetate/ Potassium Phosphate/ Magnesium Sulfate/ Calcium Gluconate/ Multivitamins/ Minerals/Chromium/ Copper/Manganese/ Seleni/Zn/Total Parenteral Nutrition/Amino Acids/Dextrose/ Fat Emulsion Intravenous (Sodium Chlori... 1,920 ml @ 80 mls/ hr TPN CONT IV Last administered on 07/19/16 20:51; Start 07/19/16 at 22:00; Stop 07/20/16 at 21:59; Status DC Hyoscyamine (Anaspaz) 0.125 mg PRN Q6HRS PRN PO BLADDER SPASM; Start 07/20/16 at 09:00; Stop 07/31/16 at 15:01; Status DC Phenazopyridine HCl 200 mg 200 mg PRN TID PRN PO BLADDER SPASM Last administered on 07/21/16 20:14; Start 07/20/16 at 09:00; Stop 07/31/16 at 15:01; Status DC Linezolid 300 ml @ 300 mls/hr Q12HR IV Last administered on 07/25/16 09:02; Start 07/20/16 at 12:00; Stop 07/25/16 at 16:12; Status DC Sodium Chloride 220 meq/Sodium Acetate 90 meq/ Potassium Chloride 50 meq/ Potassium Acetate 15 meq/Potassium Phosphate 10 mmol/ Magnesium Sulfate 50 meq/ Calcium Gluconate 3 meq/ Multivitamins/ Minerals 10 ml/ Chromium/Copper/ Manganese/Seleni/ Zn 1 ml/Total Parenteral Nutrition/Amino Acids/Dextro... 1, 920 ml @ 80 mls/hr TPN CONT IV Last administered on 07/20/16 21:30; Start 07/20/16 at 22:00; Stop 07/21/16 at 21:59; Status DC Sodium Chloride/ Sodium Acetate/ Potassium Chloride/ Potassium Acetate/ Potassium Phosphate/ Magnesium Sulfate/ Multivitamins/ Minerals/Chromium/ Copper /Manganese/ Seleni/Zn/Total Parenteral Nutrition/Amino Acids/Dextrose/ Fat Emulsion Intravenous (Sodium Chloride/ Potass... 1,920 ml @ 80 mls/hr TPN CONT IV Last administered on 07/21/16 22:05; Start 07/21/16 at 22:00; Stop at 21:59; Status DC Alteplase, Recombinant 2 mg 2 mg PRN DAILY PRN INT CAT INFLAMMATION Last administered on 07/27/16 11:31; Start 07/21/16 at 15:00 Sodium Chloride 220 meq/Sodium Acetate 90 meq/ Potassium Chloride 50 meq/ Potassium Acetate 15 meq/Potassium Phosphate 10 mmol/ Magnesium Sulfate 50 meq/ Multivitamins/ Minerals 10 ml/ Chromium/Copper/ Manganese/Seleni/ Zn 1 ml/Total Parenteral Nutrition/Amino Acids/Dextrose/ Fat Emuls... 1,920 ml @ 80 mls/hr TPN CONT IV Last administered on 07/22/16 20:53; Start 07/22/16 at 22:00; Stop 07/23/16 at 21:59; Status DC Sodium Chloride/ Sodium Acetate/ Potassium Chloride/ Potassium Acetate/ Potassium Phosphate/ Magnesium Sulfate/ Multivitamins/ Minerals/Chromium/ Copper /Manganese/ Seleni/Zn/Total Parenteral Nutrition/Amino Acids/Dextrose/ Fat Emulsion Intravenous (Sodium Chloride/ Potass... 1,920 ml @ 80 mls/hr TPN CONT IV Last administered on 07/23/16 21:16; Start 07/23/16 at 22:00; Stop 07/24 at 21:59; Status DC Gentamicin Sulfate 1 each 1 each 1X ONCE MC ; Start 07/23/16 at 22:00; Stop 07/23 at 22:01; Status Cancel Sodium Chloride/ Sodium Acetate/ Potassium Chloride/ Potassium Acetate/ Potassium Phosphate/ Magnesium Sulfate/ Multivitamins/ Minerals/Chromium/ Copper /Manganese/ Seleni/Zn/Total Parenteral Nutrition/Amino Acids/Dextrose/ Fat Emulsion Intravenous (Sodium Chloride/ Potass... 1,920 ml @ 80 mls/hr TPN CONT IV Last administered on 07/24/16 21:15; Start 07/24/16 at 22:00; Stop 04/30 at 21:59; Status DC Gentamicin Sulfate 1 each 1X ONCE MC ; Start 07/25/16 at 12:30; Stop 07/25/16 at 12:31; Status Cancel Amlodipine Besylate 5 mg 5 mg DAILY PO Last administered on 07/27/16 11:12; Start 07/25/16 at 12:00; Stop 07/29/16 at 08:44; Status DC Sodium Chloride 220 meq/Sodium Acetate 90 meq/ Potassium Chloride 30 meq/ Potassium Acetate 15 meq/Potassium Phosphate 10 mmol/ Magnesium Sulfate 50 meq/ Multivitamins/ Minerals 10 ml/ Chromium/Copper/ Manganese/Seleni/ Zn 1 ml/Total Parenteral Nutrition/Amino Acids/Dextrose/ Fat Emuls... 1,920 ml @ 80 mls/hr TPN CONT IV Last administered on 07/25/16 22:25; Start 07/25/16 at 22:00; Stop 07/26/16 at 21:59; Status DC Sodium Chloride/ Sodium Acetate/ Potassium Chloride/ Potassium Acetate/ Potassium Phosphate/ Magnesium Sulfate/ Multivitamins/ Minerals/Chromium/ Copper /Manganese/ Seleni/Zn/Total Parenteral Nutrition/Amino Acids/Dextrose/ Fat Emulsion Intravenous (Sodium Chloride/ Potass... 1,920 ml @ 80 mls/hr TPN CONT IV Last administered on 07/26/16 23:16; Start 07/26/16 at 22:00; Stop at 21:59; Status DC Furosemide 20 mg 20 mg 1X ONCE IVP Last administered on 07/27/16 11:31; Start 07/27/16 at 09:00; Stop 07/27/16 at 09:01; Status DC Daptomycin 340 mg/ Sodium Chloride 50 ml @ 100 mls/hr Q24H IV Last administered on 07/29/16 15:05; Start 07/27/16 at 13:00; Stop 07/30/16 at 07:25 ; Status DC Piperacillin Sod/ Tazobactam Sod 3.375 gm/Sodium Chloride 50 ml @ 100 mls/hr Q6HRS IV Last administered on 07/30/16 05:30; Start 07/27/16 at 12:30; Stop at 07:25; Status DC Fluconazole/ Sodium Chloride 100 ml @ 100 mls/hr Q24H IV Last administered on 07/28/16 13:32; Start 07/27/16 at 13:00; Stop 07/29/16 at 00:53; Status DC Sodium Chloride 1,000 ml @ 1,000 mls/hr 1X ONCE IV Last administered on 12:34; Start 07/27/16 at 12:30; Stop 07/27/16 at 13:29; Status DC Sodium Chloride 220 meq/Sodium Acetate 90 meq/ Potassium Chloride 30 meq/ Potassium Acetate 15 meq/Potassium Phosphate 10 mmol/ Magnesium Sulfate 45 meq/ Multivitamins/ Minerals 10 ml/ Chromium/Copper/ Manganese/Seleni/ Zn 1 ml/Total Parenteral Nutrition/Amino Acids/Dextrose/ Fat Emuls... 1,920 ml @ 80 mls/hr TPN CONT IV Last administered on 07/27/16 22:38; Start 07/27/16 at 22:00; Stop 07/28/16 at 21:59; Status DC Sodium Chloride (Iv Sodium Chloride 0.9% 1000ml Bag) 1,000 ml @ 45 mls/hr [id number] IV Last administered on 07/28/16 03:24; Start 07/27/16 at 17:00; Stop 07/28/16 at 10:27; Status DC Acetaminophen 650 mg 650 mg PRN Q6HRS PRN NE fever Last administered on 03:57; Start 07/27/16 at 16:30; Stop 07/29/16 at 08:33; Status DC Sodium Chloride 1,000 ml @ 427.5 mls/ hr Q2H21M IV Last administered on 19:30; Start 07/27/16 at 19:30; Stop 07/27/16 at 23:30; Status DC Sodium Chloride 220 meq/Sodium Acetate 90 meq/ Potassium Chloride 30 meq/ Potassium Acetate 15 meq/Potassium Phosphate 10 mmol/ Magnesium Sulfate 45 meq/ Multivitamins/ Minerals 10 ml/ Chromium/Copper/ Manganese/Seleni/ Zn 1 ml/Total Parenteral Nutrition/Amino Acids/Dextrose/ Fat Emuls... 1,920 ml @ 80 mls/hr TPN CONT IV Last administered on 07/28/16 21:43; Start 07/28/16 at 22:00; Stop 07/29/16 at 21:59; Status DC Micafungin Sodium/ Dextrose (Mycamine) 100 ml @ 100 mls/hr Q24H IV Last administered on 08/03/16 01:27; Start 07/29/16 at 01:00 Lorazepam (Ativan) 0.05 mg PRN Q4HRS PRN IV ANXIETY / AGITATION; Start at 02:30; Stop 07/29/16 at 02:48; Status DC Lorazepam (Ativan) 0.5 mg PRN Q4HRS PRN IV ANXIETY / AGITATION Last administered on 07/29/16 03:18; Start 07/29/16 at 03:00 Acetaminophen (Tylenol) 650 mg PRN Q4HRS PRN NE MILD PAIN / TEMP; Start at 08:30 Ketorolac Tromethamine (Toradol) 30 mg PRN Q6HRS PRN IV PAIN/FEVER Last administered on 07/30/16 00:50; Start 07/29/16 at 08:30; Stop 07/30/16 at 13:01 ; Status DC Pantoprazole Sodium 40 mg 40 mg DAILYAC IVP Last administered on 08/03/16 12: 04; Start 07/29/16 at 09:00 Sodium Chloride 1,000 ml @ 45 mls/hr [id number] IV Last administered on 09:17; Start 07/29/16 at 08:45; Stop 07/31/16 at 15:01; Status DC Sodium Chloride/ Sodium Acetate/ Potassium Chloride/ Potassium Acetate/ Potassium Phosphate/ Magnesium Sulfate/ Multivitamins/ Minerals/Chromium/ Copper /Manganese/ Seleni/Zn/Total Parenteral Nutrition/Amino Acids/Dextrose/ Fat Emulsion Intravenous (Sodium Chloride/ Potass... 1,920 ml @ 80 mls/hr TPN CONT IV Last administered on 07/29/16 22:06; Start 07/29/16 at 22:00; Stop at 21:59; Status DC Lidocaine/Sodium Bicarbonate 20 ml 20 ml STK-MED ONCE IJ ; Start 07/29/16 at 13: 13; Stop 07/29/16 at 13:14; Status DC Heparin Sodium/ Sodium Chloride 500 ml @ As Directed STK-MED ONCE .ROUTE ; Start 07/29/16 at 13:13; Stop 07/29/16 at 13:14; Status DC Lidocaine/ Epinephrine (Xylocaine 1%-Epi 1:100,000) 20 ml STK-MED ONCE .ROUTE ; Start 07/29/16 at 13:22; Stop 07/29/16 at 13:23; Status DC Midazolam HCl (Versed) 5 mg STK-MED ONCE .ROUTE ; Start 07/29/16 at 13:32; Stop 07/29/16 at 13:33; Status DC Fentanyl Citrate (Fentanyl 5ml Vial) 250 mcg STK-MED ONCE .ROUTE ; Start at 13:32; Stop 07/29/16 at 13:33; Status DC Heparin Sodium/ Sodium Chloride 1,000 unit 1X ONCE IART Last administered on 13:45; Start 07/29/16 at 13:45; Stop 07/29/16 at 13:48; Status DC Midazolam HCl (Versed) 5 mg 1X ONCE IV Last administered on 07/29/16 13:45; Start 07/29/16 at 13:45; Stop 07/29/16 at 13:48; Status DC Fentanyl Citrate (Fentanyl 5ml Vial) 250 mcg 1X ONCE IV Last administered on 13:45; Start 07/29/16 at 13:45; Stop 07/29/16 at 13:48; Status DC Lidocaine/ Epinephrine 20 ml 20 ml 1X ONCE IJ Last administered on 07/29/16 13:45; Start 07/29/16 at 13:45; Stop 07/29/16 at 13:48; Status DC Sodium Chloride 220 meq/Sodium Acetate 90 meq/ Potassium Chloride 15 meq/ Potassium Acetate 30 meq/Potassium Phosphate 10 mmol/ Magnesium Sulfate 45 meq/ Multivitamins/ Minerals 10 ml/ Chromium/Copper/ Manganese/Seleni/ Zn 1 ml/Total Parenteral Nutrition/Amino Acids/Dextrose/ Fat Emuls... 1,920 ml @ 80 mls/hr TPN CONT IV ; Start 07/30/16 at 22:00; Stop 07/31/16 at 21:59; Status DC Norepinephrine Bitartrate 8 mg/ Sodium Chloride 258 ml @ 1.93 mls/hr 1X ONCE IV Last administered on 07/30/16 11:17; Start 07/30/16 at 11:15; Stop at 15:43; Status DC Norepinephrine Bitartrate/Sodium Chloride (Levophed Vial/ Iv Sodium Chloride 0.9 % 250ml) 258 ml @ 0 mls/hr CONT PRN IV SEE I/O RECORD Last administered on 08/02 19:54; Start 07/30/16 at 11:15 Furosemide 60 mg 60 mg 1X ONCE IVP Last administered on 07/30/16 11:14; Start 07/30/16 at 11:15; Stop 07/30/16 at 11:16; Status DC Sodium Chloride 500 ml @ 500 mls/hr Q1H IV Last administered on 07/30/16 17: 04; Start 07/30/16 at 14:30; Stop 07/30/16 at 15:29; Status DC Albumin Human 100 ml @ 100 mls/hr Q8HRS IV Last administered on 07/31/16 05: 37; Start 07/30/16 at 14:30; Stop 07/31/16 at 06:59; Status DC Furosemide/Sodium Chloride (Lasix Drip/Iv Sodium Chloride 0.9% 100ml) 100 ml @ 0 mls/hr CONT PRN IV SEE I/O RECORD Last administered on 07/31/16 03:17; Start 07/30/16 at 14:30; Stop 08/01/16 at 13:19; Status DC Ondansetron HCl (Zofran) 8 mg PRN Q8HRS PRN IV NAUSEA/VOMITING Last administered on 07/30/16 14:38; Start 07/30/16 at 14:30 Sodium Bicarbonate 50 meq 50 meq 1X ONCE IV Last administered on 07/30/16 14: 43; Start 07/30/16 at 14:30; Stop 07/30/16 at 14:31; Status DC Heparin Sodium/ Sodium Chloride 500 ml @ As Directed STK-MED ONCE .ROUTE ; Start 07/30/16 at 14:49; Stop 07/30/16 at 14:50; Status DC Lidocaine HCl 20 ml STK-MED ONCE .ROUTE ; Start 07/30/16 at 14:49; Stop at 14:50; Status DC Midazolam HCl (Versed) 2 mg STK-MED ONCE .ROUTE ; Start 07/30/16 at 15:19; Stop 07/30/16 at 15:20; Status DC Heparin Sodium/ Sodium Chloride 1,000 unit 1X ONCE IART Last administered on 15:44; Start 07/30/16 at 15:45; Stop 07/30/16 at 15:46; Status DC Midazolam HCl (Versed) 1.5 mg 1X ONCE IV Last administered on 07/30/16 15:44 ; Start 07/30/16 at 15:45; Stop 07/30/16 at 15:46; Status DC Lidocaine HCl 20 ml 1X ONCE IJ Last administered on 07/30/16 15:44; Start at 15:45; Stop 07/30/16 at 15:46; Status DC Heparin Sodium (Porcine) 30129 unit 10,000 unit STK-MED ONCE .ROUTE ; Start at 15:54; Stop 07/30/16 at 15:55; Status DC Fentanyl Citrate 30 ml @ 0 mls/hr CONT PRN PRN IV PROTOCOL Last administered on 08/03/16 00:00; Start 07/30/16 at 16:45 Sodium Bicarbonate/ Dextrose 1,150 ml @ 125 mls/hr 1X ONCE IV Last administered on 07/30/16 18:34; Start 07/30/16 at 17:30; Stop 07/31/16 at 02:41 ; Status DC Succinylcholine Chloride 200 mg 200 mg STK-MED ONCE .ROUTE ; Start 07/30/16 at 19:47; Stop 07/30/16 at 19:48; Status DC Propofol 100 ml @ As Directed STK-MED ONCE IV ; Start 07/30/16 at 19:48; Stop 07/30/16 at 19:49; Status DC Midazolam HCl (Versed 100mg/ 100ml Premix) 100 ml @ 0 mls/hr CONT PRN IV SEE I/ O RECORD Last administered on 08/03/16 12:18; Start 07/30/16 at 21:15 Sodium Bicarbonate 50 meq 50 meq 1X ONCE IV Last administered on 07/30/16 22: 15; Start 07/30/16 at 22:30; Stop 07/30/16 at 22:31; Status DC Dopamine HCl/ Dextrose 250 ml @ 11.513 mls/ hr CONT PRN IV SEE I/O RECORD Last administered on 07/31/16 20:16; Start 07/30/16 at 22:15 Sodium Bicarbonate/ Dextrose 1,150 ml @ 125 mls/hr Q9H12M IV Last administered on 08/01/16 09:30; Start 07/31/16 at 03:00; Stop 08/01/16 at 13:19 ; Status DC Propofol (Diprivan) 1,000 mg STK-MED ONCE IV ; Start 07/30/16 at 20:00; Stop at 08:16; Status DC Succinylcholine Chloride 200 mg 200 mg STK-MED ONCE .ROUTE ; Start 07/30/16 at 20:00; Stop 07/31/16 at 08:16; Status DC Tigecycline 50 mg/ Sodium Chloride 50 ml @ 100 mls/hr Q12HR IV Last administered on 08/03/16 12:04; Start 07/31/16 at 21:00 Tigecycline/ Sodium Chloride (Tygacil/Iv Sodium Chloride 0.9% 100ml) 100 ml @ 200 mls/hr 1X ONCE IV Last administered on 07/31/16 09:22; Start 07/31/16 at 09:00; Stop 07/31/16 at 09:29; Status DC Darbepoetin Sarbjit 60 mcg 60 mcg WEEKLYHS SQ Last administered on 07/31/16 21:09 ; Start 07/31/16 at 21:00 Albumin Human 100 ml @ 100 mls/hr 1X ONCE IV Last administered on 07/31/16 11:40; Start 07/31/16 at 11:15; Stop 07/31/16 at 12:14; Status DC Albumin Human 100 ml @ 100 mls/hr 1X ONCE IV Last administered on 07/31/16 12:03; Start 07/31/16 at 11:15; Stop 07/31/16 at 12:14; Status DC Sodium Chloride (Iv Sodium Chloride 0.9% 1000ml Bag) 1,000 ml @ 1,000 mls/hr Q1H PRN IV hypotension; Start 07/31/16 at 11:33; Stop 07/31/16 at 17:32; Status DC Info (PHARMACY MONITORING -- do not chart) 1 each PRN DAILY PRN MC SEE COMMENTS ; Start 07/31/16 at 11:45 Info (PHARMACY MONITORING -- do not chart) 1 each PRN DAILY PRN MC SEE COMMENTS ; Start 07/31/16 at 11:45; Status UNV Hydrocortisone Sodium Succinate (Solu-Cortef) 100 mg Q8HRS IV Last administered on 08/03/16 06:24; Start 08/01/16 at 07:00 Albuterol/ Ipratropium (Duoneb) 3 ml RTQID NEB Last administered on 08/03/16 08:55; Start 08/01/16 at 08:00 Albuterol/ Ipratropium 3 ml 3 ml STK-MED ONCE .ROUTE Last administered on 07:34; Start 08/01/16 at 06:59; Stop 08/01/16 at 07:00; Status DC Sodium Chloride 1,000 ml @ 1,000 mls/hr Q1H PRN IV hypotension; Start 08/01/16 at 06:57; Stop 08/01/16 at 12:56; Status DC Albumin Human (Albuminar) 200 ml @ 200 mls/hr 1X PRN PRN IV Hypotension; Start 08/01/16 at 07:00; Stop 08/01/16 at 12:59; Status DC Info (PHARMACY MONITORING -- do not chart) 1 each PRN DAILY PRN MC SEE COMMENTS ; Start 08/01/16 at 07:00; Status UNV Info 1 each 1 each PRN DAILY PRN MC SEE COMMENTS Last administered on 12:45; Start 08/01/16 at 13:30 Sodium Chloride 220 meq/Sodium Acetate 90 meq/ Potassium Chloride 15 meq/ Potassium Acetate 30 meq/Potassium Phosphate 10 mmol/ Magnesium Sulfate 45 meq/ Multivitamins/ Minerals 10 ml/ Chromium/Copper/ Manganese/Seleni/ Zn 1 ml/Total Parenteral Nutrition/Amino Acids/Dextrose/ Fat Emuls... 1,920 ml @ 80 mls/hr TPN CONT IV Last administered on 08/01/16 21:56; Start 08/01/16 at 22:00; Stop 08/02/16 at 21:59; Status DC Potassium Chloride (KCl Premix 20meq) 50 ml @ 50 mls/hr Q1H IV Last administered on 08/01/16 19:05; Start 08/01/16 at 17:00; Stop 08/01/16 at 18:59 ; Status DC Insulin Aspart 0-6 UNITS TIDWMEALS SQ Last administered on 08/02/16 11:33; Start 08/02/16 at 12:00; Stop 08/02/16 at 14:34; Status DC Sodium Chloride 220 meq/Sodium Acetate 90 meq/ Potassium Chloride 15 meq/ Potassium Acetate 30 meq/Magnesium Sulfate 45 meq/ Multivitamins/ Minerals 10 ml / Chromium/Copper/ Manganese/Seleni/ Zn 1 ml/Total Parenteral Nutrition/Amino Acids/Dextrose/ Fat Emulsion Intravenous 1,920 ml @ 80 mls/hr TPN CONT IV Last administered on 08/02/16 21:34; Start 08/02/16 at 22:00; Stop 08/03/16 at 21:59 Levofloxacin/ Dextrose 150 ml @ 100 mls/hr 1X ONCE IV Last administered on 14:35; Start 08/02/16 at 14:00; Stop 08/02/16 at 15:29; Status DC Daptomycin/Sodium Chloride (Cubicin/Iv Sodium Chloride 0.9% 50ml) 50 ml @ 100 mls/hr ONCE ONCE IV Last administered on 08/02/16 14:34; Start 08/02/16 at 15 :00; Stop 08/02/16 at 15:29; Status DC Insulin Aspart 0-6 UNITS Q6HRS SQ Last administered on 08/03/16 06:27; Start 08/02/16 at 18:00 Sodium Chloride (Iv Sodium Chloride 0.9% 1000ml Bag) 1,000 ml @ 1,000 mls/hr Q1H PRN IV hypotension; Start 08/03/16 at 07:26; Stop 08/03/16 at 13:25 Diphenhydramine HCl (Benadryl) 25 mg 1X PRN PRN IV ITCHING; Start 08/03/16 at 07:30; Stop 08/04/16 at 07:29 Diphenhydramine HCl (Benadryl) 25 mg 1X PRN PRN IV ITCHING; Start 08/03/16 at 07:30; Stop 08/04/16 at 07:29 Sodium Chloride (Normal Saline Flush) 10 ml 1X PRN PRN IV AP catheter pack; Start 08/03/16 at 07:30; Stop 08/04/16 at 07:29 Sodium Chloride 10 ml 10 ml 1X PRN PRN IV [employer] catheter pack; Start 08/03/16 at 07:30; Stop 08/04/16 at 07:29 Sodium Chloride (Iv Sodium Chloride 0.9% 1000ml Bag) 1,000 ml @ 400 mls/hr Q2H30M PRN IV PATENCY; Start 08/03/16 at 07:26; Stop 08/03/16 at 19:25 Info 1 each 1 each PRN DAILY PRN MC SEE COMMENTS; Start 08/03/16 at 07:30; Status UNV Albumin Human 200 ml @ 200 mls/hr Q2HR IV Last administered on 08/03/16t 10:00 ; Start 08/03/16 at 08:44; Stop 08/03/16 at 10:59; Status DC Sodium Chloride/ Sodium Acetate/ Potassium Chloride/ Potassium Acetate/ Magnesium Sulfate/ Multivitamins/ Minerals/Chromium/ Copper/Manganese/ Seleni/Zn /Total Parenteral Nutrition/Amino Acids/Dextrose/ Fat Emulsion Intravenous ( Sodium Chloride/ Infuvite Adult/ Multitrace-5 Conc/ Tpn - Tpn Flu... 1,500 ml @ 62.5 mls/hr TPN CONT IV ; Start 08/03/16 at 22:00; Stop 08/04/16 at 21:59 Active Scripts Active Dilaudid (Hydromorphone Hcl) 4 Mg Tablet 4 Mg PO Q6HRS Phenazopyridine Hcl 200 Mg Tablet 200 Mg PO PRN TID PRN FENTANYL 50mcg/hr (Fentanyl) 1 Each Patch.td72 1 Patch TD Q3DAYS Anaspaz (Hyoscyamine Sulfate) 0.125 Mg Tab.rapdis 0.125 Mg PO Q6HRS PRN Cefpodoxime Proxetil 200 Mg Tablet 200 Mg PO BID Sertraline Hcl 50 Mg Tablet 100 Mg PO DAILY 30 Days Protonix (Pantoprazole Sodium) 40 Mg Tablet.dr 1 Tab PO DAILY Zinc Oxide 56.7 Gm Oint...g. 1 Sang TP BID Lidocaine 35.44 Gm Oint...g. 1 Sagn TP BID Ondansetron Odt (Ondansetron) 4 Mg Tab.rapdis 8 Mg PO PRN Q8HRS PRN Gas-X (Simethicone) 80 Mg Tab.chew 80 Mg PO PRN QID PRN Reported Lorazepam 0.5 Mg Tablet 0.5 Mg PO PRN BID PRN Vitals/I & O Vital Sign - Last 24 Hours 08/02/16 08/02/16 08/02/16 08/02/16 12:54 13:00 13:00 14:00 Pulse 80 83 81 Resp 20 B/P 122/64 123/62 100/55 Pulse Ox 97 96 O2 Delivery Ventilator Ventilator 08/02/16 08/02/16 08/02/16 08/02/16 14:00 15:00 15:00 15:50 Temp 96.6 96.6 96.6 96.6 Pulse 82 83 82 Resp 20 20 20 B/P 101/56 97/56 97/54 Pulse Ox 98 95 96 O2 Delivery Ventilator Ventilator Ventilator O2 Flow Rate 50.0 08/02/16 08/02/16 08/02/16 08/02/16 16:00 16:00 16:00 16:02 Temp 96.6 96.6 Pulse 84 82 Resp 20 B/P 96/56 97/53 Pulse Ox 99 97 O2 Delivery Mechanical Ventilator Ventilator Ventilator 08/02/16 08/02/16 08/02/16 08/02/16 16:24 17:00 17:00 17:42 Temp 96.8 96.8 Pulse 91 90 Resp 20 B/P 103/55 102/53 Pulse Ox 97 97 O2 Delivery Ventilator Ventilator Ventilator O2 Flow Rate 50.0 08/02/16 08/02/16 08/02/16 08/02/16 18:00 18:00 18:59 19:00 Temp 97.2 97.2 97.2 97.2 Pulse 89 88 89 89 Resp 20 20 B/P 99/53 99/53 98/51 98/52 Pulse Ox 97 97 O2 Delivery Ventilator Ventilator 08/02/16 08/02/16 08/02/16 08/02/16 20:00 20:00 20:00 20:51 Temp 97.3 97.3 Pulse 89 89 Resp 24 B/P 94/52 94/52 Pulse Ox 97 100 O2 Delivery Mechanical Ventilator Ventilator Ventilator 08/02/16 08/02/16 08/02/16 08/02/16 21:00 21:00 22:00 22:00 Temp 97.9 98.2 97.9 98.2 Pulse 93 93 94 94 Resp 23 24 B/P 97/51 97/51 98/52 98/52 Pulse Ox 98 97 O2 Delivery Ventilator Ventilator 08/02/16 08/02/16 08/02/16 08/03/16 23:00 23:00 23:49 00:00 Temp 98.4 98.4 Pulse 93 93 Resp 26 24 B/P 103/55 103/55 Pulse Ox 98 100 100 O2 Delivery Ventilator Ventilator O2 Flow Rate 50.0 08/03/16 08/03/16 08/03/16 08/03/16 00:00 00:00 00:01 00:30 Temp 98.6 98.6 Pulse 90 90 Resp 22 22 B/P 101/54 101/54 Pulse Ox 98 98 O2 Delivery Mechanical Ventilator Ventilator 08/03/16 08/03/16 08/03/16 08/03/16 01:00 01:00 02:00 02:00 Temp 98.6 98.2 98.6 98.2 Pulse 91 90 87 87 Resp 22 21 B/P 109/59 109/59 116/64 116/64 Pulse Ox 98 98 O2 Delivery Ventilator Ventilator 08/03/16 08/03/16 08/03/16 08/03/16 02:23 03:00 04:00 04:00 Temp 98.1 97.7 98.1 97.7 Pulse 90 92 Resp 20 20 B/P 122/66 128/68 Pulse Ox 97 98 98 O2 Delivery Ventilator Ventilator Ventilator 08/03/16 08/03/16 08/03/16 08/03/16 04:00 04:05 04:24 05:05 B/P Pulse Ox 98 O2 Delivery Mechanical Ventilator Ventilator 08/03/16 08/03/16 08/03/16 08/03/16 05:05 06:00 06:00 06:30 Temp 98.2 96.8 96.8 98.2 96.8 96.8 Pulse 81 80 82 Resp 20 20 20 B/P 117/58 102/52 99/49 Pulse Ox 98 98 98 O2 Delivery Ventilator Ventilator Ventilator 08/03/16 08/03/16 08/03/16 08/03/16 06:30 07:00 07:00 08:00 Temp 96.8 96.8 Pulse 80 80 84 Resp 20 B/P 100/48 100/48 110/50 Pulse Ox 99 O2 Delivery Ventilator 08/03/16 08/03/16 08/03/16 08/03/16 08:00 08:00 08:30 09:00 Temp 97.5 97.5 97.5 97.5 Pulse 84 90 Resp 21 20 B/P 110/50 104/52 Pulse Ox 99 98 99 O2 Delivery Ventilator Mechanical Ventilator Ventilator Ventilator 08/03/16 08/03/16 08/03/16 08/03/16 09:00 10:00 10:00 11:00 Temp 97.7 97.7 Pulse 90 96 96 96 Resp 20 B/P 104/52 108/54 108/54 100/54 Pulse Ox 99 O2 Delivery Ventilator 08/03/16 11:00 Temp 97.7 97.7 Pulse 96 Resp 20 B/P 100/54 Pulse Ox 99 O2 Delivery Ventilator Intake and Output 08/02/16 08/02/16 08/03/16 15:00 23:00 07:00 Intake Total 250 ml 1598 ml 1390 ml Output Total 160 ml 195 ml 250 ml Balance 90 ml 1403 ml 1140 ml MATT PALACIOS MD Aug 03, 2016 12:58
[2016-08-03] MEDS: TPN PER PHARMACY MC PRN (13:03)
[2016-08-03] MEDS: FENTANYL STANDARD PCA 30 ML IV PRN ×2 (14:18)
--- NOTE | 2016-08-03 16:02 | PDOC ---
PULMONARY PROGRESS NOTES Subjective ON AC MODE SEDATED LEVO Vitals Vital Signs Date Time Temp Pulse Resp B/P Pulse Ox O2 Delivery O2 Flow Rate FiO2 08/03/16 14:48 Ventilator 08/03/16 14:00 98.7 94 22 144/68 100 98.7 08/03/16 13:18 HEENT: Other (nc at perrl, nose clear, orally intuvated. ) Lungs: Crackles Cardiovascular: S1, S2 Abdomen: Soft, Non-tender, Other Skin: Warm Labs Laboratory Tests Test 08/01/16 16:00 08/02/16 05:45 08/02/16 06:39 08/02/16 11:16 Sodium Level 142mmol/L (136-145) 144mmol/L (136-145) Potassium Level 3.2mmol/L (3.5-5.1) 4.2mmol/L (3.5-5.1) Chloride Level 101mmol/L (98-107) 103mmol/L (98-107) Carbon Dioxide Level 31mmol/L (21-32) 27mmol/L (21-32) Anion Gap 10 (6-14) 14 (6-14) Blood Urea Nitrogen 21mg/dL (7-20) 35mg/dL (7-20) Creatinine 1.4mg/dL (0.6-1.0) 1.8mg/dL (0.6-1.0) Estimated GFR (Cockcroft-Gault) 46.3 34.6 Glucose Level 61mg/dL (70-99) 204mg/dL (70-99) Lactic Acid Level 4.3mmol/L (0.4-2.0) 5.4mmol/L (0.4-2.0) Calcium Level 8.1mg/dL (8.5-10.1) 7.7mg/dL (8.5-10.1) White Blood Count 14.5x10^3/uL (4.0-11.0) Red Blood Count 3.69x10^6/uL (3.50-5.40) Hemoglobin 9.5g/dL (12.0-15.5) Hematocrit 29.1% (36.0-47.0) Mean Corpuscular Volume 79fL (79-100) Mean Corpuscular Hemoglobin 26pg (25-35) Mean Corpuscular Hemoglobin Concent 33g/dL (31-37) Red Cell Distribution Width 20.0% (11.5-14.5) Platelet Count 46x10^3/uL (140-400) Neutrophils (%) (Auto) 79% (31-73) Lymphocytes (%) (Auto) 14% (24-48) Monocytes (%) (Auto) 6% (0-9) Eosinophils (%) (Auto) 0% (0-3) Basophils (%) (Auto) 1% (0-3) Neutrophils # (Auto) 11.5x10^3uL (1.8-7.7) Lymphocytes # (Auto) 2.0x10^3/uL (1.0-4.8) Monocytes # (Auto) 0.9x10^3/uL (0.0-1.1) Eosinophils # (Auto) 0.0x10^3/uL (0.0-0.7) Basophils # (Auto) 0.1x10^3/uL (0.0-0.2) Segmented Neutrophils % 77% (35-66) Band Neutrophils % 10% (0-9) Lymphocytes % 8% (24-48) Monocytes % 4% (0-10) Basophils % 1% (0-3) Platelet Estimate Decreased (ADEQUATE) Anisocytosis Slight Phosphorus Level 5.1mg/dL (2.6-4.7) Magnesium Level 2.1mg/dL (1.8-2.4) Thyroid Stimulating Hormone (TSH) 0.509uIU/mL (0.358-3.74) Free Thyroxine 0.96ng/dL (0.76-1.46) O2 Saturation 96% (92-99) Arterial Blood pH 7.50 (7.35-7.45) Arterial Blood pCO2 at Patient Temp 37mmHg (35-46) Arterial Blood pO2 at Patient Temp 89mmHg (65-108) Arterial Blood HCO3 28mmol/L (21-28) Arterial Blood Base Excess 4mmol/L (-3-3) FiO2 60 Glucose (Fingerstick) 191mg/dL (70-99) Test 08/02/16 17:46 08/03/16 00:01 08/03/16 06:15 08/03/16 06:24 Glucose (Fingerstick) 197mg/dL (70-99) 126mg/dL (70-99) 172mg/dL (70-99) White Blood Count 14.1x10^3/uL (4.0-11.0) Red Blood Count 3.54x10^6/uL (3.50-5.40) Hemoglobin 9.0g/dL (12.0-15.5) Hematocrit 28.1% (36.0-47.0) Mean Corpuscular Volume 79fL (79-100) Mean Corpuscular Hemoglobin 25pg (25-35) Mean Corpuscular Hemoglobin Concent 32g/dL (31-37) Red Cell Distribution Width 19.9% (11.5-14.5) Platelet Count 58x10^3/uL (140-400) Neutrophils (%) (Auto) 83% (31-73) Lymphocytes (%) (Auto) 11% (24-48) Monocytes (%) (Auto) 6% (0-9) Eosinophils (%) (Auto) 0% (0-3) Basophils (%) (Auto) 0% (0-3) Neutrophils # (Auto) 11.7x10^3uL (1.8-7.7) Lymphocytes # (Auto) 1.5x10^3/uL (1.0-4.8) Monocytes # (Auto) 0.8x10^3/uL (0.0-1.1) Eosinophils # (Auto) 0.0x10^3/uL (0.0-0.7) Basophils # (Auto) 0.1x10^3/uL (0.0-0.2) Sodium Level 150mmol/L (136-145) Potassium Level 4.1mmol/L (3.5-5.1) Chloride Level 109mmol/L (98-107) Carbon Dioxide Level 30mmol/L (21-32) Anion Gap 11 (6-14) Blood Urea Nitrogen 74mg/dL (7-20) Creatinine 2.2mg/dL (0.6-1.0) Estimated GFR (Cockcroft-Gault) 27.5 Glucose Level 184mg/dL (70-99) Calcium Level 8.0mg/dL (8.5-10.1) Phosphorus Level 5.7mg/dL (2.6-4.7) Magnesium Level 3.5mg/dL (1.8-2.4) Test 08/03/16 08:15 08/03/16 08:40 08/03/16 12:51 Prothrombin Time 21.2SEC (11.7-14.0) Prothromb Time International Ratio 2.0 (0.8-1.1) Fibrinogen < 60mg/dL (200-440) Lactic Acid Level 2.9mmol/L (0.4-2.0) O2 Saturation 98% (92-99) Arterial Blood pH 7.46 (7.35-7.45) Arterial Blood pCO2 at Patient Temp 36mmHg (35-46) Arterial Blood pO2 at Patient Temp 137mmHg (65-108) Arterial Blood HCO3 25mmol/L (21-28) Arterial Blood Base Excess 1mmol/L (-3-3) FiO2 50 Glucose (Fingerstick) 134mg/dL (70-99) Laboratory Tests Test 08/02/16 17:46 08/03/16 00:01 08/03/16 06:15 08/03/16 06:24 Glucose (Fingerstick) 197mg/dL (70-99) 126mg/dL (70-99) 172mg/dL (70-99) White Blood Count 14.1x10^3/uL (4.0-11.0) Red Blood Count 3.54x10^6/uL (3.50-5.40) Hemoglobin 9.0g/dL (12.0-15.5) Hematocrit 28.1% (36.0-47.0) Mean Corpuscular Volume 79fL (79-100) Mean Corpuscular Hemoglobin 25pg (25-35) Mean Corpuscular Hemoglobin Concent 32g/dL (31-37) Red Cell Distribution Width 19.9% (11.5-14.5) Platelet Count 58x10^3/uL (140-400) Neutrophils (%) (Auto) 83% (31-73) Lymphocytes (%) (Auto) 11% (24-48) Monocytes (%) (Auto) 6% (0-9) Eosinophils (%) (Auto) 0% (0-3) Basophils (%) (Auto) 0% (0-3) Neutrophils # (Auto) 11.7x10^3uL (1.8-7.7) Lymphocytes # (Auto) 1.5x10^3/uL (1.0-4.8) Monocytes # (Auto) 0.8x10^3/uL (0.0-1.1) Eosinophils # (Auto) 0.0x10^3/uL (0.0-0.7) Basophils # (Auto) 0.1x10^3/uL (0.0-0.2) Sodium Level 150mmol/L (136-145) Potassium Level 4.1mmol/L (3.5-5.1) Chloride Level 109mmol/L (98-107) Carbon Dioxide Level 30mmol/L (21-32) Anion Gap 11 (6-14) Blood Urea Nitrogen 74mg/dL (7-20) Creatinine 2.2mg/dL (0.6-1.0) Estimated GFR (Cockcroft-Gault) 27.5 Glucose Level 184mg/dL (70-99) Calcium Level 8.0mg/dL (8.5-10.1) Phosphorus Level 5.7mg/dL (2.6-4.7) Magnesium Level 3.5mg/dL (1.8-2.4) Test 08/03/16 08:15 08/03/16 08:40 08/03/16 12:51 Prothrombin Time 21.2SEC (11.7-14.0) Prothromb Time International Ratio 2.0 (0.8-1.1) Fibrinogen < 60mg/dL (200-440) Lactic Acid Level 2.9mmol/L (0.4-2.0) O2 Saturation 98% (92-99) Arterial Blood pH 7.46 (7.35-7.45) Arterial Blood pCO2 at Patient Temp 36mmHg (35-46) Arterial Blood pO2 at Patient Temp 137mmHg (65-108) Arterial Blood HCO3 25mmol/L (21-28) Arterial Blood Base Excess 1mmol/L (-3-3) FiO2 50 Glucose (Fingerstick) 134mg/dL (70-99) Medications Active Scripts Medications Dose Route/Sig Days Date Category Dilaudid (Hydromorphone Hcl) 4 Mg Tablet 4 Mg PO Q6HRS 06/29/16 Rx Phenazopyridine Hcl 200 Mg Tablet 200 Mg PO PRN TID PRN 06/29/16 Rx FENTANYL 50mcg/hr (Fentanyl) 1 Each Patch.td72 1 Patch TD Q3DAYS 06/29/16 Rx Anaspaz (Hyoscyamine Sulfate) 0.125 Mg Tab.rapdis 0.125 Mg PO Q6HRS PRN 06/29/16 Rx Cefpodoxime Proxetil 200 Mg Tablet 200 Mg PO BID 06/29/16 Rx Sertraline Hcl 50 Mg Tablet 100 Mg PO DAILY 30 05/12/16 Rx Protonix (Pantoprazole Sodium) 40 Mg Tablet.dr 1 Tab PO DAILY 12/27/15 Rx Zinc Oxide 56.7 Gm Oint...g. 1 Sang TP BID 12/18/15 Rx Lidocaine 35.44 Gm Oint...g. 1 Sang TP BID 12/18/15 Rx Ondansetron Odt (Ondansetron) 4 Mg Tab.rapdis 8 Mg PO PRN Q8HRS PRN 07/03/15 Rx Gas-X (Simethicone) 80 Mg Tab.chew 80 Mg PO PRN QID PRN 09/30/14 Rx Lorazepam 0.5 Mg Tablet 0.5 Mg PO PRN BID PRN 11/08/13 Reported Comments [facility] IMPROVED Impression . 1. Acute respiratory failure, multifactorial. 2. Septic shock. 3. Bilateral pulmonary infiltrates compatible with pulmonary edema, possible pneumonia. 4. Fungemia. 5. Chronic enterocutaneous fistula. 6. Metabolic toxic encephalopathy. 7. Acute renal failure. 8. [id number] protein malnutrition, present upon admission. 9. Metabolic acidosis. Plan . Still critically ill d/w with sister at bedside abx per ID solucortef bronchodilator am abg pcxr cont abx, antifungal protonix, scds for prophylaxis decrease sedation pressors to keep map 65 prognosis poor WENDI GRAY MD Aug 03, 2016 16:01
--- NOTE | 2016-08-03 17:30 | PDOC ---
PROGRESS NOTES Assessment Assessment IMPRESSION: Metabolic encephalopathy. Respiratory failure. Fever Abdominal pain. Septicemia. Chronic vesicoenteric fistula Abdominal wounds. Diverticulitis. Cervical cancer. UTI HTN RECOMMENDATIONS/PLAN: Continue medical and surgical treatment. Repeat HCT w/o contrast if MS worse or has focalized neurological deficits. OT/PT. SUBJECTIVE: Unresponsiveness. OBJECTIVE: Unresponsiveness. PAST MEDICAL AND SURGICAL HISTORY: Please see H&P MEDICATIONS: Refer to MAR REVIEW OF SYSTEMS: Constitutional: No malnutrition, weight loss, cachexia. Head: No recent traumatic brain or head injury. Skin: No edema, or rash. Ear: No infection, tinnitus. Eyes: No vision loss, or diplopia. Nose: No bleeding or purulent discharges. Hearing: No hearing decrease. Neck: No injury. Cardiac: HTN Pulmonary: No COPD. GI: See above. Urinary/genital: UTI. Endocrine: No cousin face, craniofacial dysmorphism, polydactyly. Skeletomuscular: generalized weakness. Neurological: see HP. Psychiatric: Denies drug use/abuse. Otherwise, not [id number] review of systems. PHYSICAL EXAMINATION: General appearance in subacute distress. HEENT: Normocephalic and nontraumatic. Eyes, nose, ears, and throat are unremarkable. Hearing decrease. Neck is supple. No lymphadenopathy. No Crepitus. Cardiovascular: S1, S2, regular rate and rhythm. Pulmonary: On vent Abdomen: Wounds noted Extremities: Edema. NEUROLOGICAL EXAMINATION: On vent. Unresponsive. Not oriented to time, place and person. PERRL. EOMI not elicited. CN: no focal findings. Muscle tone: decreased Muscle strength: no movements observed. DTR: 1 Plantar reflex: No response bilaterally Gait: Unable to walk. Sensory exam: no response to stimuli. Not able to access cerebellar signs. Objective Objective Vital Signs Date Time Temp Pulse Resp B/P Pulse Ox O2 Delivery O2 Flow Rate FiO2 08/03/16 16:23 99 Ventilator 08/03/16 16:00 99.4 96 25 122/56 99.4 08/03/16 13:18 Intake and Output 08/03/16 07:00 Intake Total 3238 ml Output Total 605 ml Balance 2633 ml IV Total 3015 ml Other 223 ml Output Urine Total 605 ml Vitals Signs Vitals VS - Last 72 Hours, by Label Date Time Temp Pulse Resp B/P Pulse Ox O2 Delivery O2 Flow Rate FiO2 08/03/16 16:23 99 Ventilator 08/03/16 16:00 99.4 96 25 122/56 100 Ventilator 99.4 08/03/16 16:00 96 122/56 08/03/16 16:00 Mechanical Ventilator 08/03/16 15:00 98 24 124/58 100 Ventilator 08/03/16 14:55 100 Ventilator 08/03/16 14:48 Ventilator 08/03/16 14:18 Ventilator 08/03/16 14:00 98.7 94 22 144/68 100 Ventilator 98.7 08/03/16 13:18 08/03/16 13:07 99 Ventilator 08/03/16 13:00 98.7 90 22 138/68 99 Ventilator 98.7 08/03/16 12:00 97.9 86 20 118/58 99 Ventilator 97.9 08/03/16 12:00 Mechanical Ventilator 08/03/16 12:00 86 118/58 08/03/16 11:00 97.7 96 20 100/54 99 Ventilator 97.7 08/03/16 11:00 96 100/54 08/03/16 10:30 98 Ventilator 08/03/16 10:00 96 108/54 08/03/16 10:00 97.7 96 20 108/54 99 Ventilator 97.7 08/03/16 09:00 90 104/52 08/03/16 09:00 97.5 90 20 104/52 99 Ventilator 97.5 08/03/16 08:30 98 Ventilator 08/03/16 08:00 Mechanical Ventilator 08/03/16 08:00 97.5 84 21 110/50 99 Ventilator 97.5 08/03/16 08:00 84 110/50 08/03/16 07:00 96.8 80 20 100/48 99 Ventilator 96.8 08/03/16 07:00 80 100/48 08/03/16 06:30 08/03/16 06:30 96.8 82 20 99/49 98 Ventilator 96.8 08/03/16 06:00 96.8 80 20 102/52 98 Ventilator 96.8 08/03/16 06:00 08/03/16 05:05 98.2 81 20 117/58 98 Ventilator 98.2 08/03/16 05:05 08/03/16 04:24 98 Ventilator 08/03/16 04:05 Mechanical Ventilator 08/03/16 04:00 08/03/16 04:00 08/03/16 04:00 97.7 92 20 128/68 98 Ventilator 97.7 08/03/16 03:00 98.1 90 20 122/66 98 Ventilator 98.1 08/03/16 02:23 97 Ventilator 08/03/16 02:00 87 116/64 08/03/16 02:00 98.2 87 21 116/64 98 Ventilator 98.2 08/03/16 01:00 90 109/59 08/03/16 01:00 98.6 91 22 109/59 98 Ventilator 98.6 08/03/16 00:30 22 98 08/03/16 00:01 98.6 90 22 101/54 98 Ventilator 98.6 08/03/16 00:00 90 101/54 08/03/16 00:00 Mechanical Ventilator 08/03/16 00:00 24 100 50.0 08/02/16 23:49 100 Ventilator 08/02/16 23:00 93 103/55 08/02/16 23:00 98.4 93 26 103/55 98 Ventilator 98.4 08/02/16 22:00 98.2 94 24 98/52 97 Ventilator 98.2 08/02/16 22:00 94 98/52 08/02/16 21:00 97.9 93 23 97/51 98 Ventilator 97.9 08/02/16 21:00 93 97/51 08/02/16 20:51 100 Ventilator 08/02/16 20:00 97.3 89 24 94/52 97 Ventilator 97.3 08/02/16 20:00 Mechanical Ventilator 08/02/16 20:00 89 94/52 08/02/16 19:00 89 98/52 08/02/16 18:59 97.2 89 20 98/51 97 Ventilator 97.2 08/02/16 18:00 88 99/53 08/02/16 18:00 97.2 89 20 99/53 97 Ventilator 97.2 08/02/16 17:42 97 Ventilator 08/02/16 17:00 96.8 90 20 102/53 97 Ventilator 96.8 08/02/16 17:00 91 103/55 08/02/16 16:24 50.0 08/02/16 16:02 97 Ventilator 08/02/16 16:00 96.6 82 20 97/53 99 Ventilator 96.6 08/02/16 16:00 Mechanical Ventilator 08/02/16 16:00 84 96/56 08/02/16 15:50 20 96 Ventilator 50.0 08/02/16 15:00 96.6 82 20 97/54 95 Ventilator 96.6 08/02/16 15:00 83 97/56 08/02/16 14:00 96.6 82 20 101/56 98 Ventilator 96.6 08/02/16 14:00 81 100/55 08/02/16 13:00 83 123/62 08/02/16 13:00 80 20 122/64 96 Ventilator 08/02/16 12:54 97 Ventilator 08/02/16 12:00 Mechanical Ventilator 08/02/16 12:00 75 113/61 08/02/16 12:00 95.9 76 20 118/61 100 Ventilator 95.9 08/02/16 11:57 96 Ventilator 08/02/16 11:00 95.5 78 20 126/60 93 Ventilator 95.5 08/02/16 11:00 79 130/62 08/02/16 10:00 80 20 128/60 95 Ventilator 08/02/16 10:00 80 128/60 08/02/16 09:34 97 Ventilator 08/02/16 09:00 82 20 120/54 93 Ventilator 08/02/16 09:00 82 128/60 08/02/16 08:16 97 Ventilator 08/02/16 08:00 76 112/60 08/02/16 08:00 96.9 76 20 112/60 97 Ventilator 96.9 08/02/16 08:00 Mechanical Ventilator 08/02/16 07:56 97 Ventilator Laboratory Laboratory Laboratory Tests Test 08/02/16 17:46 08/03/16 00:01 08/03/16 06:15 08/03/16 06:24 Glucose (Fingerstick) 197mg/dL (70-99) 126mg/dL (70-99) 172mg/dL (70-99) White Blood Count 14.1x10^3/uL (4.0-11.0) Red Blood Count 3.54x10^6/uL (3.50-5.40) Hemoglobin 9.0g/dL (12.0-15.5) Hematocrit 28.1% (36.0-47.0) Mean Corpuscular Volume 79fL (79-100) Mean Corpuscular Hemoglobin 25pg (25-35) Mean Corpuscular Hemoglobin Concent 32g/dL (31-37) Red Cell Distribution Width 19.9% (11.5-14.5) Platelet Count 58x10^3/uL (140-400) Neutrophils (%) (Auto) 83% (31-73) Lymphocytes (%) (Auto) 11% (24-48) Monocytes (%) (Auto) 6% (0-9) Eosinophils (%) (Auto) 0% (0-3) Basophils (%) (Auto) 0% (0-3) Neutrophils # (Auto) 11.7x10^3uL (1.8-7.7) Lymphocytes # (Auto) 1.5x10^3/uL (1.0-4.8) Monocytes # (Auto) 0.8x10^3/uL (0.0-1.1) Eosinophils # (Auto) 0.0x10^3/uL (0.0-0.7) Basophils # (Auto) 0.1x10^3/uL (0.0-0.2) Sodium Level 150mmol/L (136-145) Potassium Level 4.1mmol/L (3.5-5.1) Chloride Level 109mmol/L (98-107) Carbon Dioxide Level 30mmol/L (21-32) Anion Gap 11 (6-14) Blood Urea Nitrogen 74mg/dL (7-20) Creatinine 2.2mg/dL (0.6-1.0) Estimated GFR (Cockcroft-Gault) 27.5 Glucose Level 184mg/dL (70-99) Calcium Level 8.0mg/dL (8.5-10.1) Phosphorus Level 5.7mg/dL (2.6-4.7) Magnesium Level 3.5mg/dL (1.8-2.4) Test 08/03/16 08:15 08/03/16 08:40 08/03/16 12:51 Prothrombin Time 21.2SEC (11.7-14.0) Prothromb Time International Ratio 2.0 (0.8-1.1) Fibrinogen < 60mg/dL (200-440) Lactic Acid Level 2.9mmol/L (0.4-2.0) O2 Saturation 98% (92-99) Arterial Blood pH 7.46 (7.35-7.45) Arterial Blood pCO2 at Patient Temp 36mmHg (35-46) Arterial Blood pO2 at Patient Temp 137mmHg (65-108) Arterial Blood HCO3 25mmol/L (21-28) Arterial Blood Base Excess 1mmol/L (-3-3) FiO2 50 Glucose (Fingerstick) 134mg/dL (70-99) Microbiology 08/01/16 Blood Culture - Preliminary, Resulted NO GROWTH AFTER 2 DAYS 07/15/16 Urine Culture - Final, Complete 07/15/16 Urine Culture Result 1 (ROYA) - Final, Complete 07/15/16 Urine Culture Result 2 (ROYA) - Final, Complete 07/15/16 Antimicrobic Susceptibility - Final, Complete 07/29/16 Aerobic Culture - Final, Complete 07/29/16 Aerobic Culture Result 1 (ROYA) - Final, Complete Medication Medications Current Medications Albumin Human 200 ml @ 200 mls/hr Q2HR IV Last administered on 08/03/16 10:00 ; Start 08/03/16 at 08:44; Stop 08/03/16 at 10:59; Status DC Diphenhydramine HCl (Benadryl) 25 mg 1X PRN PRN IV ITCHING; Start 08/03/16 at 07:30; Stop 08/04/16 at 07:29 Diphenhydramine HCl (Benadryl) 25 mg 1X PRN PRN IV ITCHING; Start 08/03/16 at 07:30; Stop 08/04/16 at 07:29 Info 1 each 1 each PRN DAILY PRN MC SEE COMMENTS; Start 08/03/16 at 07:30; Status UNV Insulin Aspart 0-6 UNITS Q6HRS SQ Last administered on 08/03/16 06:27; Start 08/02/16 at 18:00 Sodium Chloride (Iv Sodium Chloride 0.9% 1000ml Bag) 1,000 ml @ 400 mls/hr Q2H30M PRN IV PATENCY; Start 08/03/16 at 07:26; Stop 08/03/16 at 19:25 Sodium Chloride (Iv Sodium Chloride 0.9% 1000ml Bag) 1,000 ml @ 1,000 mls/hr Q1H PRN IV hypotension; Start 08/03/16 at 07:26; Stop 08/03/16 at 13:25; Status DC Sodium Chloride (Normal Saline Flush) 10 ml 1X PRN PRN IV AP catheter pack; Start 08/03/16 at 07:30; Stop 08/04/16 at 07:29 Sodium Chloride 10 ml 10 ml 1X PRN PRN IV GAMBLING MONITOR catheter pack; Start 08/03/16 at 07:30; Stop 08/04/16 at 07:29 Sodium Chloride/ Sodium Acetate/ Potassium Chloride/ Potassium Acetate/ Magnesium Sulfate/ Multivitamins/ Minerals/Chromium/ Copper/Manganese/ Seleni/Zn /Total Parenteral Nutrition/Amino Acids/Dextrose/ Fat Emulsion Intravenous ( Sodium Chloride/ Infuvite Adult/ Multitrace-5 Conc/ Tpn - Tpn Flu... 1,500 ml @ 62.5 mls/hr TPN CONT IV ; Start 08/03/16 at 22:00; Stop 08/04/16 at 21:59 Sodium Chloride/ Sodium Acetate/ Potassium Chloride/ Potassium Acetate/ Magnesium Sulfate/ Multivitamins/ Minerals/Chromium/ Copper/Manganese/ Seleni/Zn /Total Parenteral Nutrition/Amino Acids/Dextrose/ Fat Emulsion Intravenous ( Sodium Chloride/ Infuvite Adult/ Multitrace-5 Conc/ Tpn - Tpn Flu... 1,920 ml @ 80 mls/hr TPN CONT IV Last administered on 08/02/16t 21:34; Start 08/02/16 at 22:00; Stop 08/03/16 at 21:59 Comment Review of Relevant I have reviewed the following items lucila (where applicable) has been applied. JEFFRY JUAREZ MD Aug 03, 2016 17:30
[2016-08-03] MEDS ORDERED: DEXTROSE 70% IV SCH ×10 (22:00)
[2016-08-03] MEDS ORDERED: AMINO ACIDS IV SCH ×10 (22:00)
[2016-08-03] MEDS ORDERED: [UNRECOGNIZED DRUG - OTHER] IV SCH ×10 (22:00)
[2016-08-03] MEDS ORDERED: TOTAL PARENTERAL NUTRITION IV SCH ×10 (22:00)
[2016-08-04] VITALS (25 sets, daily range): BP systolic 99–134; BP diastolic 46–74
[2016-08-04] MEDS: MICAFUNGIN 100 MG in IV DEXTROSE 5% 100 ML IV SCH (00:48)
[2016-08-04] MEDS: INSULIN ASPART 300 UNITS/3 ML INSULN.PEN SQ SCH ×4 (00:53→17:51)
[2016-08-04 06:16] LABS: FIBRINOGEN < 60 mg/dL (200-440)
[2016-08-04] MEDS: HYDROCORTISONE SOD SUCC/PF 100 MG/2 ML VIAL. IV SCH ×3 (06:16→21:45)
[2016-08-04 06:45] LABS: BASO % 0 % (0-3); EOS % 0 % (0-3); HEMATOCRIT 23.4 % (36.0-47.0); HEMOGLOBIN 7.6 g/dL (12.0-15.5); LYMPH # 0.9 x10^3/uL (1.0-4.8); LYMPH % 12 % (24-48); MEAN CORPUSCULAR HEMOGLOBIN 26 pg (25-35); MEAN CORPUSCULAR HGB CONC 33 g/dL (31-37); MEAN CORPUSCULAR VOLUME 80 fL (79-100); MONO % 7 % (0-9); NEUT % 81 % (31-73); PLATELET COUNT 43 x10^3/uL (140-400); RED BLOOD COUNT 2.93 x10^6/uL (3.50-5.40); RED CELL DISTRIBUTION WIDTH 19.9 % (11.5-14.5); WHITE BLOOD COUNT 7.6 x10^3/uL (4.0-11.0)
[2016-08-04 06:54] LABS: ALBUMIN 2.5 g/dL (3.4-5.0); ALBUMIN/GLOBULIN RATIO 0.8 (1.0-1.7); CREATININE 1.9 mg/dL (0.6-1.0); GFR 32.5; POTASSIUM 3.6 mmol/L (3.5-5.1); TOTAL BILIRUBIN 5.5 mg/dL (0.2-1.0); TOTAL PROTEIN 5.8 g/dL (6.4-8.2)
[2016-08-04 06:56] LABS: INR 2.9 (0.8-1.1); PROTHROMBIN TIME PATIENT 28.7 SEC (11.7-14.0)
--- NOTE | 2016-08-04 07:19 | PDOC ---
Infectious Disease Note Subjective Subjective Sedated Intubated. No fever TPN ROS ROS GEN: Denies fevers, chills, sweats HEENT: Denies blurred vision, sore throat CV: Denies chest pain RESP: Denies shortness of air, cough GI: Denies n/v/d NEURO: Denies confusion, dizziness MSK: Denies weakness, joint pain/swelling Vital Sign Vital Signs Vital Signs Date Time Temp Pulse Resp B/P Pulse Ox O2 Delivery O2 Flow Rate FiO2 08/04/16 06:07 92 20 123/47 100 Ventilator 08/04/16 04:00 96.8 96.8 08/04/16 03:55 50.0 Physical Exam PHYSICAL EXAM GENERAL: Intubated and sedated. Under bearhugger HEENT: Pupils constricted. ETT. OGT LUNGS: Clear HEART: S1S2, no gallop, no murmur. Distal DP palpable ABD: Soft, BS present, + fistula : [place] EXT: Generalized edema. DINING ROOM BUSSER: Alert, oriented x 3, no focal neurologic deficit SKIN: No rash Nontunneled PICC, HDC & femoral swans cath. clean Labs Lab Laboratory Tests Test 08/03/16 08:15 08/03/16 08:40 08/03/16 12:51 08/03/16 17:25 Prothrombin Time 21.2SEC (11.7-14.0) Prothromb Time International Ratio 2.0 (0.8-1.1) Fibrinogen < 60mg/dL (200-440) Lactic Acid Level 2.9mmol/L (0.4-2.0) O2 Saturation 98% (92-99) Arterial Blood pH 7.46 (7.35-7.45) Arterial Blood pCO2 at Patient Temp 36mmHg (35-46) Arterial Blood pO2 at Patient Temp 137mmHg (65-108) Arterial Blood HCO3 25mmol/L (21-28) Arterial Blood Base Excess 1mmol/L (-3-3) FiO2 50 Glucose (Fingerstick) 134mg/dL (70-99) 151mg/dL (70-99) Test 08/04/16 00:51 08/04/16 06:13 08/04/16 06:21 Glucose (Fingerstick) 162mg/dL (70-99) 214mg/dL (70-99) White Blood Count 7.6x10^3/uL (4.0-11.0) Red Blood Count 2.93x10^6/uL (3.50-5.40) Hemoglobin 7.6g/dL (12.0-15.5) Hematocrit 23.4% (36.0-47.0) Mean Corpuscular Volume 80fL (79-100) Mean Corpuscular Hemoglobin 26pg (25-35) Mean Corpuscular Hemoglobin Concent 33g/dL (31-37) Red Cell Distribution Width 19.9% (11.5-14.5) Platelet Count 43x10^3/uL (140-400) Neutrophils (%) (Auto) 81% (31-73) Lymphocytes (%) (Auto) 12% (24-48) Monocytes (%) (Auto) 7% (0-9) Eosinophils (%) (Auto) 0% (0-3) Basophils (%) (Auto) 0% (0-3) Neutrophils # (Auto) 6.2x10^3uL (1.8-7.7) Lymphocytes # (Auto) 0.9x10^3/uL (1.0-4.8) Monocytes # (Auto) 0.5x10^3/uL (0.0-1.1) Eosinophils # (Auto) 0.0x10^3/uL (0.0-0.7) Basophils # (Auto) 0.0x10^3/uL (0.0-0.2) Prothrombin Time 28.7SEC (11.7-14.0) Prothromb Time International Ratio 2.9 (0.8-1.1) Sodium Level 147mmol/L (136-145) Potassium Level 3.6mmol/L (3.5-5.1) Chloride Level 108mmol/L (98-107) Carbon Dioxide Level 27mmol/L (21-32) Anion Gap 12 (6-14) Blood Urea Nitrogen 82mg/dL (7-20) Creatinine 1.9mg/dL (0.6-1.0) Estimated GFR (Cockcroft-Gault) 32.5 BUN/Creatinine Ratio 43 (6-20) Glucose Level 220mg/dL (70-99) Calcium Level 8.0mg/dL (8.5-10.1) Phosphorus Level 5.0mg/dL (2.6-4.7) Magnesium Level 3.4mg/dL (1.8-2.4) Total Bilirubin 5.5mg/dL (0.2-1.0) Aspartate Amino Transf (AST/SGOT) 31U/L (15-37) Alanine Aminotransferase (ALT/SGPT) 25U/L (14-59) Alkaline Phosphatase 114U/L (46-116) Total Protein 5.8g/dL (6.4-8.2) Albumin 2.5g/dL (3.4-5.0) Albumin/Globulin Ratio 0.8 (1.0-1.7) Micro BLOOD CULTURE Preliminary NO GROWTH AFTER 2 DAYS Enterobacter aerogenes 50,000-100,000 colony forming units per mL URINE CULTURE RES 2 Final Enterococcus faecium 50,000-100,000 colony forming units per mL ANTIMICROBIAL SUSCEPTIBILITY Final Comment S = Susceptible; I = Intermediate; R = Resistant P = Positive; N = Negative MICS are expressed in micrograms per mL Antibiotic RSLT#1 RSLT#2 RSLT#3 RSLT#4 Amoxicillin/Clavulanic Acid R Cefazolin R Cefepime R Ceftriaxone R Cefuroxime R Cephalothin R Ciprofloxacin R R Gentamicin S Imipenem R Levofloxacin R R Nitrofurantoin R I Penicillin R Piperacillin R Tetracycline R R Tobramycin S Trimethoprim/Sulfa S Vancomycin S Objective Assessment C Glabrata sepsis - 07/27 - line removed and positive 07/29. OFF Levophed Acute resp failure - intubated -some infiltrates on hydrocortisone JULIO C - Fever and chills Acute Anemia - s/p PRBCs Urine Enterobacter and Amp res Enterococcus 07/15 EC fistula Enterovesicular fistula Abdominal excoriation MDR Enterobacter and enterococcus faecium in urine Plan Plan of Care continue micafungin, Tygacil Repeat Blood cults 08/01 NGTD Redose Levofloxacin and Daptomycin today Will need ECHO Will need Optho eval Monitor labs ABBY MOTT MD Aug 04, 2016 07:19
[2016-08-04 07:28] LABS: BODY TEMP ABG 98.3 DEG; CORRECTED PCO2 ABG 34 mmHg; CORRECTED PH ABG 7.48; CORRECTED PO2 ABG 239 mmHg; HCO3 ABG 25 mmol/L (21-28); SAT O2 ABG 99 % (92-99)
[2016-08-04 07:35] LABS: PH ABG 7.48 (7.35-7.45)
[2016-08-04 07:36] LABS: PCO2 ABG 35 mmHg (35-46); PO2 ABG 240 mmHg (65-108)
[2016-08-04 07:37] LABS: FIO2 ABG 50
[2016-08-04] MEDS: IPRATRPIUM/ALBUTEROL 0.5/2.5MG 3 ML NEBU. NEB SCH ×4 (07:41→20:20)
[2016-08-04] MEDS ORDERED: DAPTOMYCIN IV ONE (08:00)
[2016-08-04] MEDS ORDERED: NORMAL SALINE IV ONE (08:00)
--- NOTE | 2016-08-04 08:11 | RAD ---
Portable chest, 08/04/2016: History: Follow-up pulmonary infiltrates Comparison is made to yesterday's study. The Clutier-Vero catheter has been removed. The ET tube, NG tube and right sided central venous catheter remain in place in satisfactory positions. The heart size is normal. There is only minimal residual pulmonary infiltrate. There is no evidence of pneumothorax or pleural fluid. No new abnormality is detected. IMPRESSION: 1. Interval removal of the Clutier-Vero catheter. 2. Otherwise no significant change since yesterday's exam.
[2016-08-04] MEDS: LIDOCAINE 5% TOPICAL OINTMENT 35GM TUBE. TP SCH ×2 (08:53→20:44)
[2016-08-04] MEDS: ZINC OXIDE 20% TOPICAL OINTMENT 28GM TUBE. TP SCH ×2 (08:53→20:44)
[2016-08-04] MEDS: PANTOPRAZOLE IV PUSH 40 MG VIAL. IVP SCH (08:54)
[2016-08-04] MEDS: TIGECYCLINE 50 MG in IV NORMAL SALINE 50ML 50 ML IV SCH (09:01)
--- NOTE | 2016-08-04 09:26 | PDOC ---
PROGRESS NOTES Subjective Subjective sedated and intubated. discussed with dr. jessica. patient has DIC with a platelet antibody and minimal oozing of blood from enterocutaneous fistula. afebrile. off pressors.lab reviewed. inr 2.9 and fibrinogen low and platelets low in 40s/ Objective Objective Vital Signs Date Time Temp Pulse Resp B/P Pulse Ox O2 Delivery O2 Flow Rate FiO2 08/04/16 08:00 91 118/49 08/04/16 08:00 25 100 Ventilator 08/04/16 07:00 98.3 98.3 08/04/16 03:55 50.0 Intake and Output 08/04/16 07:00 Intake Total 927 ml Output Total 510 ml Balance 417 ml IV Total 927 ml Output Urine Total 510 ml Physical Exam Abdomen: Soft, Other (enterocutaneous fistula) Heart: Regular rate, Normal S1, Normal S2 Extremities: Other (2 plus edema arms and feet) General: Other (sedated) HEENT: Atraumatic Lungs: Other (clear anteriorly) Neuro: Other (sedated) Psych/Mental Status: Other (sedated) Skin: No rashes Assessment Assessment Problems Medical Problems: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 off pressors acute hypoxic respiratory failure. intubated on ventilator metabolic encephalopathy acute kidney injury due to ATN from sepsis. . making urine now bilateral lung infiltrates improved. suspect pneumonia vs ARDS disseminated intravascular coagulation thrombocytopenia due to platelet antibody and sepsis picc associated fungemia with sepsis and shock 4. Enterocutaneous fistula. 5. Enterovesical fistula. 6. Anemia of chronic disease. 7. Moderately severe protein calorie malnutrition. hypernatremia better (1) Abdominal pain Status: Acute (2) Enterocutaneous fistula Status: Acute (3) Sepsis Status: Acute (4) Urinary tract infection Status: Acute (5) UTI (urinary tract infection) Status: Acute Plan Plan of Care continue iv micafungin and tygacil. levaquin and daptomycin today ventilator support TPN hemodialysis per manager rn consult hematology for DIC. discussed with dr. jessica. cryoprecipitate if significant bleeding or before any procedures decrease iv hydrocortisone Comment Review of Relevant I have reviewed the following items lucila (where applicable) has been applied. Labs Laboratory Tests Test 08/02/16 11:16 08/02/16 17:46 08/03/16 00:01 08/03/16 06:15 Glucose (Fingerstick) 191mg/dL (70-99) 197mg/dL (70-99) 126mg/dL (70-99) White Blood Count 14.1x10^3/uL (4.0-11.0) Red Blood Count 3.54x10^6/uL (3.50-5.40) Hemoglobin 9.0g/dL (12.0-15.5) Hematocrit 28.1% (36.0-47.0) Mean Corpuscular Volume 79fL (79-100) Mean Corpuscular Hemoglobin 25pg (25-35) Mean Corpuscular Hemoglobin Concent 32g/dL (31-37) Red Cell Distribution Width 19.9% (11.5-14.5) Platelet Count 58x10^3/uL (140-400) Neutrophils (%) (Auto) 83% (31-73) Lymphocytes (%) (Auto) 11% (24-48) Monocytes (%) (Auto) 6% (0-9) Eosinophils (%) (Auto) 0% (0-3) Basophils (%) (Auto) 0% (0-3) Neutrophils # (Auto) 11.7x10^3uL (1.8-7.7) Lymphocytes # (Auto) 1.5x10^3/uL (1.0-4.8) Monocytes # (Auto) 0.8x10^3/uL (0.0-1.1) Eosinophils # (Auto) 0.0x10^3/uL (0.0-0.7) Basophils # (Auto) 0.1x10^3/uL (0.0-0.2) Sodium Level 150mmol/L (136-145) Potassium Level 4.1mmol/L (3.5-5.1) Chloride Level 109mmol/L (98-107) Carbon Dioxide Level 30mmol/L (21-32) Anion Gap 11 (6-14) Blood Urea Nitrogen 74mg/dL (7-20) Creatinine 2.2mg/dL (0.6-1.0) Estimated GFR (Cockcroft-Gault) 27.5 Glucose Level 184mg/dL (70-99) Calcium Level 8.0mg/dL (8.5-10.1) Phosphorus Level 5.7mg/dL (2.6-4.7) Magnesium Level 3.5mg/dL (1.8-2.4) Test 08/03/16 06:24 08/03/16 08:15 08/03/16 08:40 08/03/16 12:51 Glucose (Fingerstick) 172mg/dL (70-99) 134mg/dL (70-99) Prothrombin Time 21.2SEC (11.7-14.0) Prothromb Time International Ratio 2.0 (0.8-1.1) Fibrinogen < 60mg/dL (200-440) Lactic Acid Level 2.9mmol/L (0.4-2.0) O2 Saturation 98% (92-99) Arterial Blood pH 7.46 (7.35-7.45) Arterial Blood pCO2 at Patient Temp 36mmHg (35-46) Arterial Blood pO2 at Patient Temp 137mmHg (65-108) Arterial Blood HCO3 25mmol/L (21-28) Arterial Blood Base Excess 1mmol/L (-3-3) FiO2 50 Test 08/03/16 17:25 08/04/16 00:51 08/04/16 06:13 08/04/16 06:21 Glucose (Fingerstick) 151mg/dL (70-99) 162mg/dL (70-99) 214mg/dL (70-99) White Blood Count 7.6x10^3/uL (4.0-11.0) Red Blood Count 2.93x10^6/uL (3.50-5.40) Hemoglobin 7.6g/dL (12.0-15.5) Hematocrit 23.4% (36.0-47.0) Mean Corpuscular Volume 80fL (79-100) Mean Corpuscular Hemoglobin 26pg (25-35) Mean Corpuscular Hemoglobin Concent 33g/dL (31-37) Red Cell Distribution Width 19.9% (11.5-14.5) Platelet Count 43x10^3/uL (140-400) Neutrophils (%) (Auto) 81% (31-73) Lymphocytes (%) (Auto) 12% (24-48) Monocytes (%) (Auto) 7% (0-9) Eosinophils (%) (Auto) 0% (0-3) Basophils (%) (Auto) 0% (0-3) Neutrophils # (Auto) 6.2x10^3uL (1.8-7.7) Lymphocytes # (Auto) 0.9x10^3/uL (1.0-4.8) Monocytes # (Auto) 0.5x10^3/uL (0.0-1.1) Eosinophils # (Auto) 0.0x10^3/uL (0.0-0.7) Basophils # (Auto) 0.0x10^3/uL (0.0-0.2) Reticulocyte Count (auto) 0.3% (0.5-2.5) Prothrombin Time 28.7SEC (11.7-14.0) Prothromb Time International Ratio 2.9 (0.8-1.1) Sodium Level 147mmol/L (136-145) Potassium Level 3.6mmol/L (3.5-5.1) Chloride Level 108mmol/L (98-107) Carbon Dioxide Level 27mmol/L (21-32) Anion Gap 12 (6-14) Blood Urea Nitrogen 82mg/dL (7-20) Creatinine 1.9mg/dL (0.6-1.0) Estimated GFR (Cockcroft-Gault) 32.5 BUN/Creatinine Ratio 43 (6-20) Glucose Level 220mg/dL (70-99) Calcium Level 8.0mg/dL (8.5-10.1) Phosphorus Level 5.0mg/dL (2.6-4.7) Magnesium Level 3.4mg/dL (1.8-2.4) Total Bilirubin 5.5mg/dL (0.2-1.0) Aspartate Amino Transf (AST/SGOT) 31U/L (15-37) Alanine Aminotransferase (ALT/SGPT) 25U/L (14-59) Alkaline Phosphatase 114U/L (46-116) Lactate Dehydrogenase 360U/L (81-234) Total Protein 5.8g/dL (6.4-8.2) Albumin 2.5g/dL (3.4-5.0) Albumin/Globulin Ratio 0.8 (1.0-1.7) Test 08/04/16 07:11 O2 Saturation 99% (92-99) Arterial Blood pH 7.48 (7.35-7.45) Arterial Blood pH (Temp corrected) 7.48 Arterial Blood pCO2 at Patient Temp 35mmHg (35-46) Arterial Blood pCO2 (Temp correct) 34mmHg Arterial Blood pO2 at Patient Temp 240mmHg (65-108) Arterial Blood pO2 (Temp corrected) 239mmHg Arterial Blood HCO3 25mmol/L (21-28) Arterial Blood Base Excess 2mmol/L (-3-3) FiO2 50 Laboratory Tests Test 08/03/16 12:51 08/03/16 17:25 08/04/16 00:51 08/04/16 06:13 Glucose (Fingerstick) 134mg/dL (70-99) 151mg/dL (70-99) 162mg/dL (70-99) White Blood Count 7.6x10^3/uL (4.0-11.0) Red Blood Count 2.93x10^6/uL (3.50-5.40) Hemoglobin 7.6g/dL (12.0-15.5) Hematocrit 23.4% (36.0-47.0) Mean Corpuscular Volume 80fL (79-100) Mean Corpuscular Hemoglobin 26pg (25-35) Mean Corpuscular Hemoglobin Concent 33g/dL (31-37) Red Cell Distribution Width 19.9% (11.5-14.5) Platelet Count 43x10^3/uL (140-400) Neutrophils (%) (Auto) 81% (31-73) Lymphocytes (%) (Auto) 12% (24-48) Monocytes (%) (Auto) 7% (0-9) Eosinophils (%) (Auto) 0% (0-3) Basophils (%) (Auto) 0% (0-3) Neutrophils # (Auto) 6.2x10^3uL (1.8-7.7) Lymphocytes # (Auto) 0.9x10^3/uL (1.0-4.8) Monocytes # (Auto) 0.5x10^3/uL (0.0-1.1) Eosinophils # (Auto) 0.0x10^3/uL (0.0-0.7) Basophils # (Auto) 0.0x10^3/uL (0.0-0.2) Reticulocyte Count (auto) 0.3% (0.5-2.5) Prothrombin Time 28.7SEC (11.7-14.0) Prothromb Time International Ratio 2.9 (0.8-1.1) Sodium Level 147mmol/L (136-145) Potassium Level 3.6mmol/L (3.5-5.1) Chloride Level 108mmol/L (98-107) Carbon Dioxide Level 27mmol/L (21-32) Anion Gap 12 (6-14) Blood Urea Nitrogen 82mg/dL (7-20) Creatinine 1.9mg/dL (0.6-1.0) Estimated GFR (Cockcroft-Gault) 32.5 BUN/Creatinine Ratio 43 (6-20) Glucose Level 220mg/dL (70-99) Calcium Level 8.0mg/dL (8.5-10.1) Phosphorus Level 5.0mg/dL (2.6-4.7) Magnesium Level 3.4mg/dL (1.8-2.4) Total Bilirubin 5.5mg/dL (0.2-1.0) Aspartate Amino Transf (AST/SGOT) 31U/L (15-37) Alanine Aminotransferase (ALT/SGPT) 25U/L (14-59) Alkaline Phosphatase 114U/L (46-116) Lactate Dehydrogenase 360U/L (81-234) Total Protein 5.8g/dL (6.4-8.2) Albumin 2.5g/dL (3.4-5.0) Albumin/Globulin Ratio 0.8 (1.0-1.7) Test 08/04/16 06:21 08/04/16 07:11 Glucose (Fingerstick) 214mg/dL (70-99) O2 Saturation 99% (92-99) Arterial Blood pH 7.48 (7.35-7.45) Arterial Blood pH (Temp corrected) 7.48 Arterial Blood pCO2 at Patient Temp 35mmHg (35-46) Arterial Blood pCO2 (Temp correct) 34mmHg Arterial Blood pO2 at Patient Temp 240mmHg (65-108) Arterial Blood pO2 (Temp corrected) 239mmHg Arterial Blood HCO3 25mmol/L (21-28) Arterial Blood Base Excess 2mmol/L (-3-3) FiO2 50 Microbiology 08/01/16 Blood Culture - Preliminary, Resulted NO GROWTH AFTER 3 DAYS 07/15/16 Urine Culture - Final, Complete 07/15/16 Urine Culture Result 1 (ROYA) - Final, Complete 07/15/16 Urine Culture Result 2 (ROYA) - Final, Complete 07/15/16 Antimicrobic Susceptibility - Final, Complete 07/29/16 Aerobic Culture - Final, Complete 07/29/16 Aerobic Culture Result 1 (ROYA) - Final, Complete Medications Current Medications Piperacillin Sod/ Tazobactam Sod/ Sodium Chloride (Zosyn/Iv Sodium Chloride 0.9 % 100ml) 100 ml @ 200 mls/hr 1X ONCE IV Last administered on 07/15/16 22:56; Start 07/15/16 at 22:00; Stop 07/15/16 at 22:29; Status DC Fentanyl Citrate 50 mcg 50 mcg PRN Q15MIN PRN IV PAIN GREATER THAN 3/10 Last administered on 07/16/16 00:30; Start 07/15/16 at 21:45; Stop 07/16/16 at 02:00; Status DC Sodium Chloride 1,000 ml @ 1,000 mls/hr 1X ONCE IV Last administered on 21:59; Start 07/15/16 at 22:00; Stop 07/15/16 at 22:59; Status DC Sodium Chloride (Iv Sodium Chloride 0.9% 500ml Bag) 500 ml @ 500 mls/hr 1X ONCE IV Last administered on 07/15/16 22:00; Start 07/15/16 at 22:00; Stop at 22:59; Status DC Ondansetron HCl (Zofran) 4 mg PRN Q8HRS PRN IV NAUSEA/VOMITING; Start 07/15/16 at 23:30; Stop 07/16/16 at 08:52; Status DC Fentanyl Citrate 50 mcg 50 mcg PRN Q2HR PRN IV SEVERE PAIN Last administered on 07/16/16 08:10; Start 07/15/16 at 23:30; Stop 07/16/16 at 08:52; Status DC Sodium Chloride (Iv Sodium Chloride 0.9% 1000ml Bag) 1,000 ml @ 150 mls/hr Q6H40M IV Last administered on 07/15/16 02:00; Start 07/15/16 at 23:45; Stop 07/16/16 at 08:52; Status DC Acetaminophen (Tylenol) 650 mg PRN Q4HRS PRN PO FEVER; Start 07/15/16 at 23:30; Stop 07/16/16 at 23:29; Status DC Info (Do NOT chart on this placeholder) 1 each PRN DAILY PRN MC NEEDS VERIFICATION; Start 07/16/16 at 03:00; Status Cancel Acetaminophen 650 mg 650 mg PRN Q4HRS PRN PO MILD PAIN / TEMP Last administered on 07/28/16 07:42; Start 07/16/16 at 08:45; Stop 07/29/16 at 08:33 ; Status DC Piperacillin Sod/ Tazobactam Sod 3.375 gm/Sodium Chloride 50 ml @ 100 mls/hr Q6HRS IV Last administered on 07/18/16 05:50; Start 07/16/16 at 10:00; Stop 07/18 at 13:28; Status DC Linezolid (Zyvox Premix) 300 ml @ 300 mls/hr Q12HR IV Last administered on 07/18 08:34; Start 07/16/16 at 10:00; Stop 07/18/16 at 13:28; Status DC Hydromorphone HCl (Dilaudid) 2 mg PRN Q4HRS PRN IV MODERATE PAIN Last administered on 07/28/16 23:33; Start 07/16/16 at 08:45 Hydromorphone HCl (Dilaudid) 4 mg PRN Q4HRS PRN IV SEVERE PAIN Last administered on 07/30/16 09:23; Start 07/16/16 at 08:45; Stop 07/31/16 at 15:01 ; Status DC Pantoprazole Sodium (Protonix) 40 mg DAILYAC PO Last administered on 07/27/16 11:11; Start 07/16/16 at 09:30; Stop 07/29/16 at 08:44; Status DC Hyoscyamine (Anaspaz) 0.125 mg Q6HRS PO Last administered on 07/20/16 05:20; Start 07/16/16 at 12:00; Stop 07/20/16 at 08:58; Status DC Phenazopyridine HCl (Pyridium) 200 mg TID PO Last administered on 07/20/16 08: 25; Start 07/16/16 at 09:30; Stop 07/20/16 at 08:58; Status DC Lorazepam (Ativan) 0.5 mg PRN BID PRN PO ANXIETY / AGITATION Last administered on 07/29/16 02:16; Start 07/16/16 at 08:45; Stop 07/31/16 at 15:01; Status DC Simethicone (Gas-X) 80 mg PRN Q4HRS PRN PO GAS / BLOATING Last administered on 07/24/16 22:30; Start 07/16/16 at 08:45; Stop 07/31/16 at 15:01; Status DC Zolpidem Tartrate 5 mg 5 mg PRN QHS PRN PO INSOMNIA Last administered on 23:14; Start 07/16/16 at 08:45; Stop 07/31/16 at 15:01; Status DC Potassium Chloride/Dextrose/ Sod Cl 1,000 ml @ 80 mls/hr [id number] IV Last administered on 07/16/16 10:54; Start 07/16/16 at 09:30; Stop 07/16/16 at 21:59; Status DC Fluconazole/ Sodium Chloride (Diflucan 200mg/ 100ml Premix) 100 ml @ 100 mls/ hr Q24H IV Last administered on 07/18/16 11:43; Start 07/16/16 at 11:00; Stop at 13:28; Status DC Info 1 each 1 each PRN DAILY PRN MC SEE COMMENTS Last administered on 12:41; Start 07/16/16 at 10:00; Stop 08/01/16 at 11:24; Status DC Sodium Chloride 220 meq/Sodium Acetate 90 meq/ Potassium Chloride 50 meq/ Potassium Acetate 15 meq/Potassium Phosphate 10 mmol/ Magnesium Sulfate 50 meq/ Calcium Gluconate 6 meq/ Multivitamins/ Minerals 10 ml/ Chromium/Copper/ Manganese/Seleni/ Zn 1 ml/Total Parenteral Nutrition/Amino Acids/Dextro... 1, 920 ml @ 80 mls/hr TPN CONT IV ; Start 07/16/16 at 22:00; Stop 07/16/16 at 22:00 ; Status DC Sodium Chloride/ Sodium Acetate/ Potassium Chloride/ Potassium Acetate/ Potassium Phosphate/ Magnesium Sulfate/ Calcium Gluconate/ Multivitamins/ Minerals/Chromium/ Copper/Manganese/ Seleni/Zn/Total Parenteral Nutrition/Amino Acids/Dextrose/ Fat Emulsion Intravenous (Sodium Chlori... 1,820 ml @ 75.833 mls/ hr TPN CONT IV Last administered on 07/16/16 21:03; Start 07/16/16 at 22: 00; Stop 07/17/16 at 21:59; Status DC Ondansetron HCl (Zofran) 4 mg PRN Q6HRS PRN IV NAUSEA/VOMITING Last administered on 07/21/16 08:48; Start 07/16/16 at 17:15; Stop 07/31/16 at 15:01; Status DC Diphenhydramine HCl (Benadryl) 25 mg PRN Q6HRS PRN PO ITCHING Last administered on 07/25/16 23:38; Start 07/16/16 at 17:45; Stop 07/31/16 at 15:01 ; Status DC Lidocaine (Xylocaine) 1 sang BID TP Last administered on 08/04/16 08:53; Start 07/17/16 at 09:00 Zinc Oxide 1 sang 1 sang BID TP Last administered on 08/04/16 08:53; Start at 09:30 Sodium Chloride/ Sodium Acetate/ Potassium Chloride/ Potassium Acetate/ Potassium Phosphate/ Magnesium Sulfate/ Calcium Gluconate/ Multivitamins/ Minerals/Chromium/ Copper/Manganese/ Seleni/Zn/Total Parenteral Nutrition/Amino Acids/Dextrose/ Fat Emulsion Intravenous (Sodium Chlori... 1,920 ml @ 80 mls/ hr TPN CONT IV Last administered on 07/17/16 22:13; Start 07/17/16 at 22:00; Stop 07/18/16 at 21:59; Status DC Furosemide 40 mg 40 mg 1X ONCE IVP Last administered on 07/18/16 11:43; Start 07/18/16 at 11:00; Stop 07/18/16 at 11:07; Status DC Sodium Chloride 220 meq/Sodium Acetate 90 meq/ Potassium Chloride 50 meq/ Potassium Acetate 15 meq/Potassium Phosphate 10 mmol/ Magnesium Sulfate 50 meq/ Calcium Gluconate 3 meq/ Multivitamins/ Minerals 10 ml/ Chromium/Copper/ Manganese/Seleni/ Zn 1 ml/Total Parenteral Nutrition/Amino Acids/Dextro... 1, 920 ml @ 80 mls/hr TPN CONT IV Last administered on 07/19/16 00:03; Start 07/18/16 at 22:00; Stop 07/19/16 at 21:59; Status DC Meropenem 1 gm/ Sodium Chloride 100 ml @ 200 mls/hr Q8HRS IV Last administered on 07/20/16 05:21; Start 07/18/16 at 14:00; Stop 07/20/16 at 11:25; Status DC Micafungin Sodium 100 mg/Dextrose 100 ml @ 100 mls/hr Q24H IV Last administered on 07/19/16 15:05; Start 07/18/16 at 14:00; Stop 07/20/16 at 11:25; Status DC Daptomycin/Sodium Chloride (Cubicin/Iv Sodium Chloride 0.9% 50ml) 50 ml @ 100 mls/hr Q24H IV Last administered on 07/19/16 16:56; Start 07/18/16 at 15:00; Stop 07/20/16 at 11:25; Status DC Alteplase, Recombinant (Cathflo) 2 mg 1X ONCE INT CAT Last administered on 07/19 06:24; Start 07/19/16 at 07:00; Stop 07/19/16 at 07:01; Status DC Gentamicin Sulfate 1 each 1 each PRN DAILY PRN MC SEE COMMENTS Last administered on 07/25/16 15:31; Start 07/19/16 at 12:15; Stop 07/25/16 at 16:14 ; Status DC Gentamicin Sulfate/Sodium Chloride (Iv Sodium Chloride 0.9% 100ml) 106.75 ml @ 106.75 mls/hr Q24H IV Last administered on 07/25/16 15:31; Start 07/19/16 at 13 :00; Stop 07/25/16 at 16:12; Status DC Gentamicin Sulfate 1 each 1 each 1X ONCE MC Last administered on 07/19/16 23: 00; Start 07/19/16 at 23:00; Stop 07/19/16 at 23:01; Status DC Sodium Chloride/ Sodium Acetate/ Potassium Chloride/ Potassium Acetate/ Potassium Phosphate/ Magnesium Sulfate/ Calcium Gluconate/ Multivitamins/ Minerals/Chromium/ Copper/Manganese/ Seleni/Zn/Total Parenteral Nutrition/Amino Acids/Dextrose/ Fat Emulsion Intravenous (Sodium Chlori... 1,920 ml @ 80 mls/ hr TPN CONT IV Last administered on 07/19/16 20:51; Start 07/19/16 at 22:00; Stop 07/20/16 at 21:59; Status DC Hyoscyamine (Anaspaz) 0.125 mg PRN Q6HRS PRN PO BLADDER SPASM; Start 07/20/16 at 09:00; Stop 07/31/16 at 15:01; Status DC Phenazopyridine HCl 200 mg 200 mg PRN TID PRN PO BLADDER SPASM Last administered on 07/21/16 20:14; Start 07/20/16 at 09:00; Stop 07/31/16 at 15:01; Status DC Linezolid 300 ml @ 300 mls/hr Q12HR IV Last administered on 07/25/16 09:02; Start 07/20/16 at 12:00; Stop 07/25/16 at 16:12; Status DC Sodium Chloride 220 meq/Sodium Acetate 90 meq/ Potassium Chloride 50 meq/ Potassium Acetate 15 meq/Potassium Phosphate 10 mmol/ Magnesium Sulfate 50 meq/ Calcium Gluconate 3 meq/ Multivitamins/ Minerals 10 ml/ Chromium/Copper/ Manganese/Seleni/ Zn 1 ml/Total Parenteral Nutrition/Amino Acids/Dextro... 1, 920 ml @ 80 mls/hr TPN CONT IV Last administered on 07/20/16 21:30; Start 07/20/16 at 22:00; Stop 07/21/16 at 21:59; Status DC Sodium Chloride/ Sodium Acetate/ Potassium Chloride/ Potassium Acetate/ Potassium Phosphate/ Magnesium Sulfate/ Multivitamins/ Minerals/Chromium/ Copper /Manganese/ Seleni/Zn/Total Parenteral Nutrition/Amino Acids/Dextrose/ Fat Emulsion Intravenous (Sodium Chloride/ Potass... 1,920 ml @ 80 mls/hr TPN CONT IV Last administered on 07/21/16 22:05; Start 07/21/16 at 22:00; Stop at 21:59; Status DC Alteplase, Recombinant 2 mg 2 mg PRN DAILY PRN INT CAT INFLAMMATION Last administered on 07/27/16 11:31; Start 07/21/16 at 15:00 Sodium Chloride 220 meq/Sodium Acetate 90 meq/ Potassium Chloride 50 meq/ Potassium Acetate 15 meq/Potassium Phosphate 10 mmol/ Magnesium Sulfate 50 meq/ Multivitamins/ Minerals 10 ml/ Chromium/Copper/ Manganese/Seleni/ Zn 1 ml/Total Parenteral Nutrition/Amino Acids/Dextrose/ Fat Emuls... 1,920 ml @ 80 mls/hr TPN CONT IV Last administered on 07/22/16 20:53; Start 07/22/16 at 22:00; Stop 07/23/16 at 21:59; Status DC Sodium Chloride/ Sodium Acetate/ Potassium Chloride/ Potassium Acetate/ Potassium Phosphate/ Magnesium Sulfate/ Multivitamins/ Minerals/Chromium/ Copper /Manganese/ Seleni/Zn/Total Parenteral Nutrition/Amino Acids/Dextrose/ Fat Emulsion Intravenous (Sodium Chloride/ Potass... 1,920 ml @ 80 mls/hr TPN CONT IV Last administered on 07/23/16 21:16; Start 07/23/16 at 22:00; Stop 07/24 at 21:59; Status DC Gentamicin Sulfate 1 each 1 each 1X ONCE MC ; Start 07/23/16 at 22:00; Stop 07/23 at 22:01; Status Cancel Sodium Chloride/ Sodium Acetate/ Potassium Chloride/ Potassium Acetate/ Potassium Phosphate/ Magnesium Sulfate/ Multivitamins/ Minerals/Chromium/ Copper /Manganese/ Seleni/Zn/Total Parenteral Nutrition/Amino Acids/Dextrose/ Fat Emulsion Intravenous (Sodium Chloride/ Potass... 1,920 ml @ 80 mls/hr TPN CONT IV Last administered on 07/24/16 21:15; Start 07/24/16 at 22:00; Stop 04/30 at 21:59; Status DC Gentamicin Sulfate 1 each 1X ONCE MC ; Start 07/25/16 at 12:30; Stop 07/25/16 at 12:31; Status Cancel Amlodipine Besylate 5 mg 5 mg DAILY PO Last administered on 07/27/16 11:12; Start 07/25/16 at 12:00; Stop 07/29/16 at 08:44; Status DC Sodium Chloride 220 meq/Sodium Acetate 90 meq/ Potassium Chloride 30 meq/ Potassium Acetate 15 meq/Potassium Phosphate 10 mmol/ Magnesium Sulfate 50 meq/ Multivitamins/ Minerals 10 ml/ Chromium/Copper/ Manganese/Seleni/ Zn 1 ml/Total Parenteral Nutrition/Amino Acids/Dextrose/ Fat Emuls... 1,920 ml @ 80 mls/hr TPN CONT IV Last administered on 07/25/16 22:25; Start 07/25/16 at 22:00; Stop 07/26/16 at 21:59; Status DC Sodium Chloride/ Sodium Acetate/ Potassium Chloride/ Potassium Acetate/ Potassium Phosphate/ Magnesium Sulfate/ Multivitamins/ Minerals/Chromium/ Copper /Manganese/ Seleni/Zn/Total Parenteral Nutrition/Amino Acids/Dextrose/ Fat Emulsion Intravenous (Sodium Chloride/ Potass... 1,920 ml @ 80 mls/hr TPN CONT IV Last administered on 07/26/16 23:16; Start 07/26/16 at 22:00; Stop at 21:59; Status DC Furosemide 20 mg 20 mg 1X ONCE IVP Last administered on 07/27/16 11:31; Start 07/27/16 at 09:00; Stop 07/27/16 at 09:01; Status DC Daptomycin 340 mg/ Sodium Chloride 50 ml @ 100 mls/hr Q24H IV Last administered on 07/29/16 15:05; Start 07/27/16 at 13:00; Stop 07/30/16 at 07:25 ; Status DC Piperacillin Sod/ Tazobactam Sod 3.375 gm/Sodium Chloride 50 ml @ 100 mls/hr Q6HRS IV Last administered on 07/30/16 05:30; Start 07/27/16 at 12:30; Stop at 07:25; Status DC Fluconazole/ Sodium Chloride 100 ml @ 100 mls/hr Q24H IV Last administered on 07/28/16 13:32; Start 07/27/16 at 13:00; Stop 07/29/16 at 00:53; Status DC Sodium Chloride 1,000 ml @ 1,000 mls/hr 1X ONCE IV Last administered on 12:34; Start 07/27/16 at 12:30; Stop 07/27/16 at 13:29; Status DC Sodium Chloride 220 meq/Sodium Acetate 90 meq/ Potassium Chloride 30 meq/ Potassium Acetate 15 meq/Potassium Phosphate 10 mmol/ Magnesium Sulfate 45 meq/ Multivitamins/ Minerals 10 ml/ Chromium/Copper/ Manganese/Seleni/ Zn 1 ml/Total Parenteral Nutrition/Amino Acids/Dextrose/ Fat Emuls... 1,920 ml @ 80 mls/hr TPN CONT IV Last administered on 07/27/16 22:38; Start 07/27/16 at 22:00; Stop 07/28/16 at 21:59; Status DC Sodium Chloride (Iv Sodium Chloride 0.9% 1000ml Bag) 1,000 ml @ 45 mls/hr [id number] IV Last administered on 07/28/16 03:24; Start 07/27/16 at 17:00; Stop 07/28/16 at 10:27; Status DC Acetaminophen 650 mg 650 mg PRN Q6HRS PRN [place] fever Last administered on 03:57; Start 07/27/16 at 16:30; Stop 07/29/16 at 08:33; Status DC Sodium Chloride 1,000 ml @ 427.5 mls/ hr [id number] IV Last administered on 19:30; Start 07/27/16 at 19:30; Stop 07/27/16 at 23:30; Status DC Sodium Chloride 220 meq/Sodium Acetate 90 meq/ Potassium Chloride 30 meq/ Potassium Acetate 15 meq/Potassium Phosphate 10 mmol/ Magnesium Sulfate 45 meq/ Multivitamins/ Minerals 10 ml/ Chromium/Copper/ Manganese/Seleni/ Zn 1 ml/Total Parenteral Nutrition/Amino Acids/Dextrose/ Fat Emuls... 1,920 ml @ 80 mls/hr TPN CONT IV Last administered on 07/28/16 21:43; Start 07/28/16 at 22:00; Stop 07/29/16 at 21:59; Status DC Micafungin Sodium/ Dextrose (Mycamine) 100 ml @ 100 mls/hr Q24H IV Last administered on 08/04/16 00:48; Start 07/29/16 at 01:00 Lorazepam (Ativan) 0.05 mg PRN Q4HRS PRN IV ANXIETY / AGITATION; Start at 02:30; Stop 07/29/16 at 02:48; Status DC Lorazepam (Ativan) 0.5 mg PRN Q4HRS PRN IV ANXIETY / AGITATION Last administered on 07/29/16 03:18; Start 07/29/16 at 03:00 Acetaminophen (Tylenol) 650 mg PRN Q4HRS PRN [place] MILD PAIN / TEMP; Start at 08:30 Ketorolac Tromethamine (Toradol) 30 mg PRN Q6HRS PRN IV PAIN/FEVER Last administered on 07/30/16 00:50; Start 07/29/16 at 08:30; Stop 07/30/16 at 13:01 ; Status DC Pantoprazole Sodium 40 mg 40 mg DAILYAC IVP Last administered on 08/04/16 08: 54; Start 07/29/16 at 09:00 Sodium Chloride 1,000 ml @ 45 mls/hr [id number] IV Last administered on 09:17; Start 07/29/16 at 08:45; Stop 07/31/16 at 15:01; Status DC Sodium Chloride/ Sodium Acetate/ Potassium Chloride/ Potassium Acetate/ Potassium Phosphate/ Magnesium Sulfate/ Multivitamins/ Minerals/Chromium/ Copper /Manganese/ Seleni/Zn/Total Parenteral Nutrition/Amino Acids/Dextrose/ Fat Emulsion Intravenous (Sodium Chloride/ Potass... 1,920 ml @ 80 mls/hr TPN CONT IV Last administered on 07/29/16 22:06; Start 07/29/16 at 22:00; Stop at 21:59; Status DC Lidocaine/Sodium Bicarbonate 20 ml 20 ml STK-MED ONCE IJ ; Start 07/29/16 at 13: 13; Stop 07/29/16 at 13:14; Status DC Heparin Sodium/ Sodium Chloride 500 ml @ As Directed STK-MED ONCE .ROUTE ; Start 07/29/16 at 13:13; Stop 07/29/16 at 13:14; Status DC Lidocaine/ Epinephrine (Xylocaine 1%-Epi 1:100,000) 20 ml STK-MED ONCE .ROUTE ; Start 07/29/16 at 13:22; Stop 07/29/16 at 13:23; Status DC Midazolam HCl (Versed) 5 mg STK-MED ONCE .ROUTE ; Start 07/29/16 at 13:32; Stop 07/29/16 at 13:33; Status DC Fentanyl Citrate (Fentanyl 5ml Vial) 250 mcg STK-MED ONCE .ROUTE ; Start at 13:32; Stop 07/29/16 at 13:33; Status DC Heparin Sodium/ Sodium Chloride 1,000 unit 1X ONCE IART Last administered on 13:45; Start 07/29/16 at 13:45; Stop 07/29/16 at 13:48; Status DC Midazolam HCl (Versed) 5 mg 1X ONCE IV Last administered on 07/29/16 13:45; Start 07/29/16 at 13:45; Stop 07/29/16 at 13:48; Status DC Fentanyl Citrate (Fentanyl 5ml Vial) 250 mcg 1X ONCE IV Last administered on 13:45; Start 07/29/16 at 13:45; Stop 07/29/16 at 13:48; Status DC Lidocaine/ Epinephrine 20 ml 20 ml 1X ONCE IJ Last administered on 07/29/16 13:45; Start 07/29/16 at 13:45; Stop 07/29/16 at 13:48; Status DC Sodium Chloride 220 meq/Sodium Acetate 90 meq/ Potassium Chloride 15 meq/ Potassium Acetate 30 meq/Potassium Phosphate 10 mmol/ Magnesium Sulfate 45 meq/ Multivitamins/ Minerals 10 ml/ Chromium/Copper/ Manganese/Seleni/ Zn 1 ml/Total Parenteral Nutrition/Amino Acids/Dextrose/ Fat Emuls... 1,920 ml @ 80 mls/hr TPN CONT IV ; Start 07/30/16 at 22:00; Stop 07/31/16 at 21:59; Status DC Norepinephrine Bitartrate 8 mg/ Sodium Chloride 258 ml @ 1.93 mls/hr 1X ONCE IV Last administered on 07/30/16 11:17; Start 07/30/16 at 11:15; Stop at 15:43; Status DC Norepinephrine Bitartrate/Sodium Chloride (Levophed Vial/ Iv Sodium Chloride 0.9 % 250ml) 258 ml @ 0 mls/hr CONT PRN IV SEE I/O RECORD Last administered on 08/02 19:54; Start 07/30/16 at 11:15 Furosemide 60 mg 60 mg 1X ONCE IVP Last administered on 07/30/16 11:14; Start 07/30/16 at 11:15; Stop 07/30/16 at 11:16; Status DC Sodium Chloride 500 ml @ 500 mls/hr Q1H IV Last administered on 07/30/16 17: 04; Start 07/30/16 at 14:30; Stop 07/30/16 at 15:29; Status DC Albumin Human 100 ml @ 100 mls/hr Q8HRS IV Last administered on 07/31/16 05: 37; Start 07/30/16 at 14:30; Stop 07/31/16 at 06:59; Status DC Furosemide/Sodium Chloride (Lasix Drip/Iv Sodium Chloride 0.9% 100ml) 100 ml @ 0 mls/hr CONT PRN IV SEE I/O RECORD Last administered on 07/31/16 03:17; Start 07/30/16 at 14:30; Stop 08/01/16 at 13:19; Status DC Ondansetron HCl (Zofran) 8 mg PRN Q8HRS PRN IV NAUSEA/VOMITING Last administered on 07/30/16 14:38; Start 07/30/16 at 14:30 Sodium Bicarbonate 50 meq 50 meq 1X ONCE IV Last administered on 07/30/16 14: 43; Start 07/30/16 at 14:30; Stop 07/30/16 at 14:31; Status DC Heparin Sodium/ Sodium Chloride 500 ml @ As Directed STK-MED ONCE .ROUTE ; Start 07/30/16 at 14:49; Stop 07/30/16 at 14:50; Status DC Lidocaine HCl 20 ml STK-MED ONCE .ROUTE ; Start 07/30/16 at 14:49; Stop at 14:50; Status DC Midazolam HCl (Versed) 2 mg STK-MED ONCE .ROUTE ; Start 07/30/16 at 15:19; Stop 07/30/16 at 15:20; Status DC Heparin Sodium/ Sodium Chloride 1,000 unit 1X ONCE IART Last administered on 15:44; Start 07/30/16 at 15:45; Stop 07/30/16 at 15:46; Status DC Midazolam HCl (Versed) 1.5 mg 1X ONCE IV Last administered on 07/30/16 15:44 ; Start 07/30/16 at 15:45; Stop 07/30/16 at 15:46; Status DC Lidocaine HCl 20 ml 1X ONCE IJ Last administered on 07/30/16 15:44; Start at 15:45; Stop 07/30/16 at 15:46; Status DC Heparin Sodium (Porcine) 67627 unit 10,000 unit STK-MED ONCE .ROUTE ; Start at 15:54; Stop 07/30/16 at 15:55; Status DC Fentanyl Citrate 30 ml @ 0 mls/hr CONT PRN PRN IV PROTOCOL Last administered on 08/03/16 14:18; Start 07/30/16 at 16:45 Sodium Bicarbonate/ Dextrose 1,150 ml @ 125 mls/hr 1X ONCE IV Last administered on 07/30/16 18:34; Start 07/30/16 at 17:30; Stop 07/31/16 at 02:41 ; Status DC Succinylcholine Chloride 200 mg 200 mg STK-MED ONCE .ROUTE ; Start 07/30/16 at 19:47; Stop 07/30/16 at 19:48; Status DC Propofol 100 ml @ As Directed STK-MED ONCE IV ; Start 07/30/16 at 19:48; Stop 07/30/16 at 19:49; Status DC Midazolam HCl (Versed 100mg/ 100ml Premix) 100 ml @ 0 mls/hr CONT PRN IV SEE I/ O RECORD Last administered on 08/03/16 12:18; Start 07/30/16 at 21:15 Sodium Bicarbonate 50 meq 50 meq 1X ONCE IV Last administered on 07/30/16 22: 15; Start 07/30/16 at 22:30; Stop 07/30/16 at 22:31; Status DC Dopamine HCl/ Dextrose 250 ml @ 11.513 mls/ hr CONT PRN IV SEE I/O RECORD Last administered on 07/31/16 20:16; Start 07/30/16 at 22:15 Sodium Bicarbonate/ Dextrose 1,150 ml @ 125 mls/hr Q9H12M IV Last administered on 08/01/16 09:30; Start 07/31/16 at 03:00; Stop 08/01/16 at 13:19 ; Status DC Propofol (Diprivan) 1,000 mg STK-MED ONCE IV ; Start 07/30/16 at 20:00; Stop at 08:16; Status DC Succinylcholine Chloride 200 mg 200 mg STK-MED ONCE .ROUTE ; Start 07/30/16 at 20:00; Stop 07/31/16 at 08:16; Status DC Tigecycline 50 mg/ Sodium Chloride 50 ml @ 100 mls/hr Q12HR IV Last administered on 08/04/16 09:01; Start 07/31/16 at 21:00; Stop 08/04/16 at 10:00 Tigecycline/ Sodium Chloride (Tygacil/Iv Sodium Chloride 0.9% 100ml) 100 ml @ 200 mls/hr 1X ONCE IV Last administered on 07/31/16 09:22; Start 07/31/16 at 09:00; Stop 07/31/16 at 09:29; Status DC Darbepoetin Sarbjit 60 mcg 60 mcg [id number] SQ Last administered on 07/31/16 21:09 ; Start 07/31/16 at 21:00 Albumin Human 100 ml @ 100 mls/hr 1X ONCE IV Last administered on 07/31/16 11:40; Start 07/31/16 at 11:15; Stop 07/31/16 at 12:14; Status DC Albumin Human 100 ml @ 100 mls/hr 1X ONCE IV Last administered on 07/31/16 12:03; Start 07/31/16 at 11:15; Stop 07/31/16 at 12:14; Status DC Sodium Chloride (Iv Sodium Chloride 0.9% 1000ml Bag) 1,000 ml @ 1,000 mls/hr Q1H PRN IV hypotension; Start 07/31/16 at 11:33; Stop 07/31/16 at 17:32; Status DC Info (PHARMACY MONITORING -- do not chart) 1 each PRN DAILY PRN MC SEE COMMENTS ; Start 07/31/16 at 11:45 Info (PHARMACY MONITORING -- do not chart) 1 each PRN DAILY PRN MC SEE COMMENTS ; Start 07/31/16 at 11:45; Status UNV Hydrocortisone Sodium Succinate (Solu-Cortef) 100 mg Q8HRS IV Last administered on 08/04/16 06:16; Start 08/01/16 at 07:00 Albuterol/ Ipratropium (Duoneb) 3 ml RTQID NEB Last administered on 08/04/16 07:41; Start 08/01/16 at 08:00 Albuterol/ Ipratropium 3 ml 3 ml STK-MED ONCE .ROUTE Last administered on 07:34; Start 08/01/16 at 06:59; Stop 08/01/16 at 07:00; Status DC Sodium Chloride 1,000 ml @ 1,000 mls/hr Q1H PRN IV hypotension; Start 08/01/16 at 06:57; Stop 08/01/16 at 12:56; Status DC Albumin Human (Albuminar) 200 ml @ 200 mls/hr 1X PRN PRN IV Hypotension; Start 08/01/16 at 07:00; Stop 08/01/16 at 12:59; Status DC Info (PHARMACY MONITORING -- do not chart) 1 each PRN DAILY PRN MC SEE COMMENTS ; Start 08/01/16 at 07:00; Status UNV Info 1 each 1 each PRN DAILY PRN MC SEE COMMENTS Last administered on 13:03; Start 08/01/16 at 13:30 Sodium Chloride 220 meq/Sodium Acetate 90 meq/ Potassium Chloride 15 meq/ Potassium Acetate 30 meq/Potassium Phosphate 10 mmol/ Magnesium Sulfate 45 meq/ Multivitamins/ Minerals 10 ml/ Chromium/Copper/ Manganese/Seleni/ Zn 1 ml/Total Parenteral Nutrition/Amino Acids/Dextrose/ Fat Emuls... 1,920 ml @ 80 mls/hr TPN CONT IV Last administered on 08/01/16 21:56; Start 08/01/16 at 22:00; Stop 08/02/16 at 21:59; Status DC Potassium Chloride (KCl Premix 20meq) 50 ml @ 50 mls/hr Q1H IV Last administered on 08/01/16 19:05; Start 08/01/16 at 17:00; Stop 08/01/16 at 18:59 ; Status DC Insulin Aspart 0-6 UNITS TIDWMEALS SQ Last administered on 08/02/16 11:33; Start 08/02/16 at 12:00; Stop 08/02/16 at 14:34; Status DC Sodium Chloride 220 meq/Sodium Acetate 90 meq/ Potassium Chloride 15 meq/ Potassium Acetate 30 meq/Magnesium Sulfate 45 meq/ Multivitamins/ Minerals 10 ml / Chromium/Copper/ Manganese/Seleni/ Zn 1 ml/Total Parenteral Nutrition/Amino Acids/Dextrose/ Fat Emulsion Intravenous 1,920 ml @ 80 mls/hr TPN CONT IV Last administered on 08/02/16 21:34; Start 08/02/16 at 22:00; Stop 08/03/16 at 21:59; Status DC Levofloxacin/ Dextrose 150 ml @ 100 mls/hr 1X ONCE IV Last administered on 14:35; Start 08/02/16 at 14:00; Stop 08/02/16 at 15:29; Status DC Daptomycin/Sodium Chloride (Cubicin/Iv Sodium Chloride 0.9% 50ml) 50 ml @ 100 mls/hr ONCE ONCE IV Last administered on 08/02/16 14:34; Start 08/02/16 at 15 :00; Stop 08/02/16 at 15:29; Status DC Insulin Aspart 0-6 UNITS Q6HRS SQ Last administered on 08/04/16 06:25; Start 08/02/16 at 18:00 Sodium Chloride (Iv Sodium Chloride 0.9% 1000ml Bag) 1,000 ml @ 1,000 mls/hr Q1H PRN IV hypotension; Start 08/03/16 at 07:26; Stop 08/03/16 at 13:25; Status DC Diphenhydramine HCl (Benadryl) 25 mg 1X PRN PRN IV ITCHING; Start 08/03/16 at 07:30; Stop 08/04/16 at 07:29; Status DC Diphenhydramine HCl (Benadryl) 25 mg 1X PRN PRN IV ITCHING; Start 08/03/16 at 07:30; Stop 08/04/16 at 07:29; Status DC Sodium Chloride (Normal Saline Flush) 10 ml 1X PRN PRN IV AP catheter pack; Start 08/03/16 at 07:30; Stop 08/04/16 at 07:29; Status DC Sodium Chloride 10 ml 10 ml 1X PRN PRN IV [employer] catheter pack; Start 08/03/16 at 07:30; Stop 08/04/16 at 07:29; Status DC Sodium Chloride (Iv Sodium Chloride 0.9% 1000ml Bag) 1,000 ml @ 400 mls/hr Q2H30M PRN IV PATENCY; Start 08/03/16 at 07:26; Stop 08/03/16 at 19:25; Status DC Info 1 each 1 each PRN DAILY PRN MC SEE COMMENTS; Start 08/03/16 at 07:30; Status UNV Albumin Human 200 ml @ 200 mls/hr Q2HR IV Last administered on 08/03/16 10:00 ; Start 08/03/16 at 08:44; Stop 08/03/16 at 10:59; Status DC Sodium Chloride 160 meq/Sodium Acetate 60 meq/ Potassium Chloride 15 meq/ Potassium Acetate 30 meq/Magnesium Sulfate 25 meq/ Multivitamins/ Minerals 10 ml / Chromium/Copper/ Manganese/Seleni/ Zn 1 ml/Total Parenteral Nutrition/Amino Acids/Dextrose/ Fat Emulsion Intravenous 1,500 ml @ 62.5 mls/hr TPN CONT IV Last administered on 08/03/16 22:52; Start 08/03/16 at 22:00; Stop 08/04/16 at 21:59 Levofloxacin/ Dextrose 100 ml @ 100 mls/hr 1X ONCE IV ; Start 08/04/16 at 07: 30; Stop 08/04/16 at 08:30; Status DC Daptomycin 450 mg/ Sodium Chloride 50 ml @ 100 mls/hr ONCE ONCE IV ; Start at 08:00; Stop 08/04/16 at 08:30; Status DC Tigecycline/ Sodium Chloride (Tygacil/Iv Sodium Chloride 0.9% 50ml) 50 ml @ 100 mls/hr Q12HR IV ; Start 08/04/16 at 21:00 Active Scripts Active Dilaudid (Hydromorphone Hcl) 4 Mg Tablet 4 Mg PO Q6HRS Phenazopyridine Hcl 200 Mg Tablet 200 Mg PO PRN TID PRN FENTANYL 50mcg/hr (Fentanyl) 1 Each Patch.td72 1 Patch TD Q3DAYS Anaspaz (Hyoscyamine Sulfate) 0.125 Mg Tab.rapdis 0.125 Mg PO Q6HRS PRN Cefpodoxime Proxetil 200 Mg Tablet 200 Mg PO BID Sertraline Hcl 50 Mg Tablet 100 Mg PO DAILY 30 Days Protonix (Pantoprazole Sodium) 40 Mg Tablet.dr 1 Tab PO DAILY Zinc Oxide 56.7 Gm Oint...g. 1 Sang TP BID Lidocaine 35.44 Gm Oint...g. 1 Sang TP BID Ondansetron Odt (Ondansetron) 4 Mg Tab.rapdis 8 Mg PO PRN Q8HRS PRN Gas-X (Simethicone) 80 Mg Tab.chew 80 Mg PO PRN QID PRN Reported Lorazepam 0.5 Mg Tablet 0.5 Mg PO PRN BID PRN Vitals/I & O Vital Sign - Last 24 Hours 08/03/16 08/03/16 08/03/16 08/03/16 10:00 10:00 10:30 11:00 Temp 97.7 97.7 Pulse 96 96 96 Resp 20 B/P 108/54 108/54 100/54 Pulse Ox 99 98 O2 Delivery Ventilator Ventilator 08/03/16 08/03/16 08/03/16 08/03/16 11:00 12:00 12:00 12:00 Temp 97.7 97.9 97.7 97.9 Pulse 96 86 86 Resp 20 20 B/P 100/54 118/58 118/58 Pulse Ox 99 99 O2 Delivery Ventilator Mechanical Ventilator Ventilator 08/03/16 08/03/16 08/03/16 08/03/16 13:00 13:07 13:18 14:00 Temp 98.7 98.7 98.7 98.7 Pulse 90 94 Resp 22 22 B/P 138/68 144/68 Pulse Ox 99 99 100 O2 Delivery Ventilator Ventilator Ventilator O2 Flow Rate 08/03/16 08/03/16 08/03/16 08/03/16 14:18 14:48 14:55 15:00 Pulse 98 Resp 24 B/P 124/58 Pulse Ox 100 100 O2 Delivery Ventilator Ventilator Ventilator Ventilator 08/03/16 08/03/16 08/03/16 08/03/16 16:00 16:00 16:00 16:23 Temp 99.4 99.4 Pulse 96 96 Resp 25 B/P 122/56 122/56 Pulse Ox 100 99 O2 Delivery Mechanical Ventilator Ventilator Ventilator 08/03/16 08/03/16 08/03/16 08/03/16 17:00 18:00 19:00 19:45 Temp 97.7 97.7 Pulse 98 96 94 Resp 24 24 22 B/P 126/58 122/58 116/54 Pulse Ox 100 100 99 O2 Delivery Ventilator Ventilator Ventilator Mechanical Ventilator O2 Flow Rate 50.0 08/03/16 08/03/16 08/03/16 08/03/16 20:00 20:04 21:00 21:35 Pulse 95 90 Resp 20 20 B/P 106/50 114/52 Pulse Ox 99 99 99 100 O2 Delivery Ventilator Ventilator Ventilator Ventilator 08/03/16 08/03/16 08/03/16 08/03/16 22:00 23:00 23:20 23:50 Pulse 90 106 Resp 20 20 B/P 116/54 106/46 Pulse Ox 99 99 100 O2 Delivery Ventilator Ventilator Ventilator Mechanical Ventilator O2 Flow Rate 50.0 08/04/16 08/04/16 08/04/16 08/04/16 00:00 01:00 01:15 02:13 Temp 97.0 97.0 Pulse 94 88 88 Resp 20 20 20 B/P 106/48 102/48 102/48 Pulse Ox 99 99 100 99 O2 Delivery Ventilator Ventilator Ventilator Ventilator 08/04/16 08/04/16 08/04/16 08/04/16 03:17 03:25 03:55 04:00 Temp 96.8 96.8 Pulse 87 92 Resp 20 20 B/P 108/50 133/56 Pulse Ox 100 100 100 O2 Delivery Ventilator Ventilator Mechanical Ventilator Ventilator O2 Flow Rate 50.0 08/04/16 08/04/16 08/04/16 08/04/16 05:00 05:23 06:07 07:00 Temp 98.3 98.3 Pulse 91 92 94 Resp 20 20 25 B/P 119/46 123/47 134/54 Pulse Ox 100 100 100 100 O2 Delivery Ventilator Ventilator Ventilator Ventilator 08/04/16 08/04/16 08/04/16 08/04/16 07:11 08:00 08:00 08:00 Pulse 91 91 Resp 25 B/P 118/49 118/49 Pulse Ox 100 100 O2 Delivery Ventilator Mechanical Ventilator Ventilator Intake and Output 08/03/16 08/03/16 08/04/16 15:00 23:00 07:00 Intake Total 927 ml Output Total 140 ml 185 ml 185 ml Balance -140 ml -185 ml 742 ml BENITA LUTZ MD Aug 04, 2016 09:26
--- NOTE | 2016-08-04 10:16 | PDOC ---
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 Inr 2.9 and fibrinogen low and platelets low in 43. Monitor for bleeding, in the event of severe bleed or need for invasive procedure, then will give cryoprecipitate 5 units. see dictation # [id number] ENMA FINLEY MD Aug 04, 2016 10:16
--- NOTE | 2016-08-04 10:19 | PDOC ---
PROGRESS NOTES Subjective Subjective Patient sedated and ventilated and requiring pressure support. Nursing reports she is doig about the same and will grimace to vent cares. Nursing reports urine output of ~30 ml/hr and is going to get dialysis later today. Objective Objective Vital Signs Date Time Temp Pulse Resp B/P Pulse Ox O2 Delivery O2 Flow Rate FiO2 08/04/16 10:03 98.7 94 24 133/61 100 Ventilator 98.7 08/04/16 03:55 50.0 Intake and Output 08/04/16 07:00 Intake Total 927 ml Output Total 510 ml Balance 417 ml IV Total 927 ml Output Urine Total 510 ml Physical Exam Heart: Regular rate, Normal S1, Normal S2, No murmurs Extremities: Normal pulses (peripheral pulses palpable in extremeties x4), Other (moderate peripheral edema) Lungs: Other (diffuse course lungsounds, on vent) Neck: Other (JVD) Neuro: Other (sedated, grimace to pain) Assessment Assessment Patient is critically ill and currently sedated on ventilation and pressure support. She is likely in DIC secondary to septic shock from her recent UTI and fungemia. She has generalized edema that is likely non cardiogenic in nature. Problems Medical Problems: (1) Abdominal pain Status: Acute (2) Enterocutaneous fistula Status: Acute (3) Sepsis Status: Acute (4) Urinary tract infection Status: Acute (5) UTI (urinary tract infection) Status: Acute Plan Plan of Care Will continue with current plans. Will closely monitor. Comment Review of Relevant I have reviewed the following items lucila (where applicable) has been applied. Labs Laboratory Tests Test 08/02/16 11:16 08/02/16 17:46 08/03/16 00:01 08/03/16 06:15 Glucose (Fingerstick) 191mg/dL (70-99) 197mg/dL (70-99) 126mg/dL (70-99) White Blood Count 14.1x10^3/uL (4.0-11.0) Red Blood Count 3.54x10^6/uL (3.50-5.40) Hemoglobin 9.0g/dL (12.0-15.5) Hematocrit 28.1% (36.0-47.0) Mean Corpuscular Volume 79fL (79-100) Mean Corpuscular Hemoglobin 25pg (25-35) Mean Corpuscular Hemoglobin Concent 32g/dL (31-37) Red Cell Distribution Width 19.9% (11.5-14.5) Platelet Count 58x10^3/uL (140-400) Neutrophils (%) (Auto) 83% (31-73) Lymphocytes (%) (Auto) 11% (24-48) Monocytes (%) (Auto) 6% (0-9) Eosinophils (%) (Auto) 0% (0-3) Basophils (%) (Auto) 0% (0-3) Neutrophils # (Auto) 11.7x10^3uL (1.8-7.7) Lymphocytes # (Auto) 1.5x10^3/uL (1.0-4.8) Monocytes # (Auto) 0.8x10^3/uL (0.0-1.1) Eosinophils # (Auto) 0.0x10^3/uL (0.0-0.7) Basophils # (Auto) 0.1x10^3/uL (0.0-0.2) Sodium Level 150mmol/L (136-145) Potassium Level 4.1mmol/L (3.5-5.1) Chloride Level 109mmol/L (98-107) Carbon Dioxide Level 30mmol/L (21-32) Anion Gap 11 (6-14) Blood Urea Nitrogen 74mg/dL (7-20) Creatinine 2.2mg/dL (0.6-1.0) Estimated GFR (Cockcroft-Gault) 27.5 Glucose Level 184mg/dL (70-99) Calcium Level 8.0mg/dL (8.5-10.1) Phosphorus Level 5.7mg/dL (2.6-4.7) Magnesium Level 3.5mg/dL (1.8-2.4) Indirect Platelet Antibody (LAB) See separate report Test 08/03/16 06:24 08/03/16 08:15 08/03/16 08:40 08/03/16 12:51 Glucose (Fingerstick) 172mg/dL (70-99) 134mg/dL (70-99) Prothrombin Time 21.2SEC (11.7-14.0) Prothromb Time International Ratio 2.0 (0.8-1.1) Fibrinogen < 60mg/dL (200-440) Lactic Acid Level 2.9mmol/L (0.4-2.0) O2 Saturation 98% (92-99) Arterial Blood pH 7.46 (7.35-7.45) Arterial Blood pCO2 at Patient Temp 36mmHg (35-46) Arterial Blood pO2 at Patient Temp 137mmHg (65-108) Arterial Blood HCO3 25mmol/L (21-28) Arterial Blood Base Excess 1mmol/L (-3-3) FiO2 50 Test 08/03/16 17:25 08/04/16 00:51 08/04/16 06:13 08/04/16 06:21 Glucose (Fingerstick) 151mg/dL (70-99) 162mg/dL (70-99) 214mg/dL (70-99) White Blood Count 7.6x10^3/uL (4.0-11.0) Red Blood Count 2.93x10^6/uL (3.50-5.40) Hemoglobin 7.6g/dL (12.0-15.5) Hematocrit 23.4% (36.0-47.0) Mean Corpuscular Volume 80fL (79-100) Mean Corpuscular Hemoglobin 26pg (25-35) Mean Corpuscular Hemoglobin Concent 33g/dL (31-37) Red Cell Distribution Width 19.9% (11.5-14.5) Platelet Count 43x10^3/uL (140-400) Neutrophils (%) (Auto) 81% (31-73) Lymphocytes (%) (Auto) 12% (24-48) Monocytes (%) (Auto) 7% (0-9) Eosinophils (%) (Auto) 0% (0-3) Basophils (%) (Auto) 0% (0-3) Neutrophils # (Auto) 6.2x10^3uL (1.8-7.7) Lymphocytes # (Auto) 0.9x10^3/uL (1.0-4.8) Monocytes # (Auto) 0.5x10^3/uL (0.0-1.1) Eosinophils # (Auto) 0.0x10^3/uL (0.0-0.7) Basophils # (Auto) 0.0x10^3/uL (0.0-0.2) Reticulocyte Count (auto) 0.3% (0.5-2.5) Prothrombin Time 28.7SEC (11.7-14.0) Prothromb Time International Ratio 2.9 (0.8-1.1) Fibrinogen < 60mg/dL (200-440) Sodium Level 147mmol/L (136-145) Potassium Level 3.6mmol/L (3.5-5.1) Chloride Level 108mmol/L (98-107) Carbon Dioxide Level 27mmol/L (21-32) Anion Gap 12 (6-14) Blood Urea Nitrogen 82mg/dL (7-20) Creatinine 1.9mg/dL (0.6-1.0) Estimated GFR (Cockcroft-Gault) 32.5 BUN/Creatinine Ratio 43 (6-20) Glucose Level 220mg/dL (70-99) Calcium Level 8.0mg/dL (8.5-10.1) Phosphorus Level 5.0mg/dL (2.6-4.7) Magnesium Level 3.4mg/dL (1.8-2.4) Total Bilirubin 5.5mg/dL (0.2-1.0) Aspartate Amino Transf (AST/SGOT) 31U/L (15-37) Alanine Aminotransferase (ALT/SGPT) 25U/L (14-59) Alkaline Phosphatase 114U/L (46-116) Lactate Dehydrogenase 360U/L (81-234) Total Protein 5.8g/dL (6.4-8.2) Albumin 2.5g/dL (3.4-5.0) Albumin/Globulin Ratio 0.8 (1.0-1.7) Test 08/04/16 07:11 O2 Saturation 99% (92-99) Arterial Blood pH 7.48 (7.35-7.45) Arterial Blood pH (Temp corrected) 7.48 Arterial Blood pCO2 at Patient Temp 35mmHg (35-46) Arterial Blood pCO2 (Temp correct) 34mmHg Arterial Blood pO2 at Patient Temp 240mmHg (65-108) Arterial Blood pO2 (Temp corrected) 239mmHg Arterial Blood HCO3 25mmol/L (21-28) Arterial Blood Base Excess 2mmol/L (-3-3) FiO2 50 Laboratory Tests Test 08/03/16 12:51 08/03/16 17:25 08/04/16 00:51 08/04/16 06:13 Glucose (Fingerstick) 134mg/dL (70-99) 151mg/dL (70-99) 162mg/dL (70-99) White Blood Count 7.6x10^3/uL (4.0-11.0) Red Blood Count 2.93x10^6/uL (3.50-5.40) Hemoglobin 7.6g/dL (12.0-15.5) Hematocrit 23.4% (36.0-47.0) Mean Corpuscular Volume 80fL (79-100) Mean Corpuscular Hemoglobin 26pg (25-35) Mean Corpuscular Hemoglobin Concent 33g/dL (31-37) Red Cell Distribution Width 19.9% (11.5-14.5) Platelet Count 43x10^3/uL (140-400) Neutrophils (%) (Auto) 81% (31-73) Lymphocytes (%) (Auto) 12% (24-48) Monocytes (%) (Auto) 7% (0-9) Eosinophils (%) (Auto) 0% (0-3) Basophils (%) (Auto) 0% (0-3) Neutrophils # (Auto) 6.2x10^3uL (1.8-7.7) Lymphocytes # (Auto) 0.9x10^3/uL (1.0-4.8) Monocytes # (Auto) 0.5x10^3/uL (0.0-1.1) Eosinophils # (Auto) 0.0x10^3/uL (0.0-0.7) Basophils # (Auto) 0.0x10^3/uL (0.0-0.2) Reticulocyte Count (auto) 0.3% (0.5-2.5) Prothrombin Time 28.7SEC (11.7-14.0) Prothromb Time International Ratio 2.9 (0.8-1.1) Fibrinogen < 60mg/dL (200-440) Sodium Level 147mmol/L (136-145) Potassium Level 3.6mmol/L (3.5-5.1) Chloride Level 108mmol/L (98-107) Carbon Dioxide Level 27mmol/L (21-32) Anion Gap 12 (6-14) Blood Urea Nitrogen 82mg/dL (7-20) Creatinine 1.9mg/dL (0.6-1.0) Estimated GFR (Cockcroft-Gault) 32.5 BUN/Creatinine Ratio 43 (6-20) Glucose Level 220mg/dL (70-99) Calcium Level 8.0mg/dL (8.5-10.1) Phosphorus Level 5.0mg/dL (2.6-4.7) Magnesium Level 3.4mg/dL (1.8-2.4) Total Bilirubin 5.5mg/dL (0.2-1.0) Aspartate Amino Transf (AST/SGOT) 31U/L (15-37) Alanine Aminotransferase (ALT/SGPT) 25U/L (14-59) Alkaline Phosphatase 114U/L (46-116) Lactate Dehydrogenase 360U/L (81-234) Total Protein 5.8g/dL (6.4-8.2) Albumin 2.5g/dL (3.4-5.0) Albumin/Globulin Ratio 0.8 (1.0-1.7) Test 08/04/16 06:21 08/04/16 07:11 Glucose (Fingerstick) 214mg/dL (70-99) O2 Saturation 99% (92-99) Arterial Blood pH 7.48 (7.35-7.45) Arterial Blood pH (Temp corrected) 7.48 Arterial Blood pCO2 at Patient Temp 35mmHg (35-46) Arterial Blood pCO2 (Temp correct) 34mmHg Arterial Blood pO2 at Patient Temp 240mmHg (65-108) Arterial Blood pO2 (Temp corrected) 239mmHg Arterial Blood HCO3 25mmol/L (21-28) Arterial Blood Base Excess 2mmol/L (-3-3) FiO2 50 Microbiology 08/01/16 Blood Culture - Preliminary, Resulted NO GROWTH AFTER 3 DAYS 07/15/16 Urine Culture - Final, Complete 07/15/16 Urine Culture Result 1 (ROYA) - Final, Complete 07/15/16 Urine Culture Result 2 (ROYA) - Final, Complete 07/15/16 Antimicrobic Susceptibility - Final, Complete 07/29/16 Aerobic Culture - Final, Complete 07/29/16 Aerobic Culture Result 1 (ROYA) - Final, Complete Medications Current Medications Piperacillin Sod/ Tazobactam Sod/ Sodium Chloride (Zosyn/Iv Sodium Chloride 0.9 % 100ml) 100 ml @ 200 mls/hr 1X ONCE IV Last administered on 07/15/16 22:56; Start 07/15/16 at 22:00; Stop 07/15/16 at 22:29; Status DC Fentanyl Citrate 50 mcg 50 mcg PRN Q15MIN PRN IV PAIN GREATER THAN 3/10 Last administered on 07/16/16 00:30; Start 07/15/16 at 21:45; Stop 07/16/16 at 02:00; Status DC Sodium Chloride 1,000 ml @ 1,000 mls/hr 1X ONCE IV Last administered on 21:59; Start 07/15/16 at 22:00; Stop 07/15/16 at 22:59; Status DC Sodium Chloride (Iv Sodium Chloride 0.9% 500ml Bag) 500 ml @ 500 mls/hr 1X ONCE IV Last administered on 07/15/16 22:00; Start 07/15/16 at 22:00; Stop at 22:59; Status DC Ondansetron HCl (Zofran) 4 mg PRN Q8HRS PRN IV NAUSEA/VOMITING; Start 07/15/16 at 23:30; Stop 07/16/16 at 08:52; Status DC Fentanyl Citrate 50 mcg 50 mcg PRN Q2HR PRN IV SEVERE PAIN Last administered on 07/16/16 08:10; Start 07/15/16 at 23:30; Stop 07/16/16 at 08:52; Status DC Sodium Chloride (Iv Sodium Chloride 0.9% 1000ml Bag) 1,000 ml @ 150 mls/hr Q6H40M IV Last administered on 07/15/16 02:00; Start 07/15/16 at 23:45; Stop 07/16/16 at 08:52; Status DC Acetaminophen (Tylenol) 650 mg PRN Q4HRS PRN PO FEVER; Start 07/15/16 at 23:30; Stop 07/16/16 at 23:29; Status DC Info (Do NOT chart on this placeholder) 1 each PRN DAILY PRN MC NEEDS VERIFICATION; Start 07/16/16 at 03:00; Status Cancel Acetaminophen 650 mg 650 mg PRN Q4HRS PRN PO MILD PAIN / TEMP Last administered on 07/28/16 07:42; Start 07/16/16 at 08:45; Stop 07/29/16 at 08:33 ; Status DC Piperacillin Sod/ Tazobactam Sod 3.375 gm/Sodium Chloride 50 ml @ 100 mls/hr Q6HRS IV Last administered on 07/18/16 05:50; Start 07/16/16 at 10:00; Stop 07/18 at 13:28; Status DC Linezolid (Zyvox Premix) 300 ml @ 300 mls/hr Q12HR IV Last administered on 07/18 08:34; Start 07/16/16 at 10:00; Stop 07/18/16 at 13:28; Status DC Hydromorphone HCl (Dilaudid) 2 mg PRN Q4HRS PRN IV MODERATE PAIN Last administered on 07/28/16 23:33; Start 07/16/16 at 08:45 Hydromorphone HCl (Dilaudid) 4 mg PRN Q4HRS PRN IV SEVERE PAIN Last administered on 07/30/16 09:23; Start 07/16/16 at 08:45; Stop 07/31/16 at 15:01 ; Status DC Pantoprazole Sodium (Protonix) 40 mg DAILYAC PO Last administered on 07/27/16 11:11; Start 07/16/16 at 09:30; Stop 07/29/16 at 08:44; Status DC Hyoscyamine (Anaspaz) 0.125 mg Q6HRS PO Last administered on 07/20/16 05:20; Start 07/16/16 at 12:00; Stop 07/20/16 at 08:58; Status DC Phenazopyridine HCl (Pyridium) 200 mg TID PO Last administered on 07/20/16 08: 25; Start 07/16/16 at 09:30; Stop 07/20/16 at 08:58; Status DC Lorazepam (Ativan) 0.5 mg PRN BID PRN PO ANXIETY / AGITATION Last administered on 07/29/16 02:16; Start 07/16/16 at 08:45; Stop 07/31/16 at 15:01; Status DC Simethicone (Gas-X) 80 mg PRN Q4HRS PRN PO GAS / BLOATING Last administered on 07/24/16 22:30; Start 07/16/16 at 08:45; Stop 07/31/16 at 15:01; Status DC Zolpidem Tartrate 5 mg 5 mg PRN QHS PRN PO INSOMNIA Last administered on 23:14; Start 07/16/16 at 08:45; Stop 07/31/16 at 15:01; Status DC Potassium Chloride/Dextrose/ Sod Cl 1,000 ml @ 80 mls/hr [id number] IV Last administered on 07/16/16 10:54; Start 07/16/16 at 09:30; Stop 07/16/16 at 21:59; Status DC Fluconazole/ Sodium Chloride (Diflucan 200mg/ 100ml Premix) 100 ml @ 100 mls/ hr Q24H IV Last administered on 07/18/16 11:43; Start 07/16/16 at 11:00; Stop at 13:28; Status DC Info 1 each 1 each PRN DAILY PRN MC SEE COMMENTS Last administered on 12:41; Start 07/16/16 at 10:00; Stop 08/01/16 at 11:24; Status DC Sodium Chloride 220 meq/Sodium Acetate 90 meq/ Potassium Chloride 50 meq/ Potassium Acetate 15 meq/Potassium Phosphate 10 mmol/ Magnesium Sulfate 50 meq/ Calcium Gluconate 6 meq/ Multivitamins/ Minerals 10 ml/ Chromium/Copper/ Manganese/Seleni/ Zn 1 ml/Total Parenteral Nutrition/Amino Acids/Dextro... 1, 920 ml @ 80 mls/hr TPN CONT IV ; Start 07/16/16 at 22:00; Stop 07/16/16 at 22:00 ; Status DC Sodium Chloride/ Sodium Acetate/ Potassium Chloride/ Potassium Acetate/ Potassium Phosphate/ Magnesium Sulfate/ Calcium Gluconate/ Multivitamins/ Minerals/Chromium/ Copper/Manganese/ Seleni/Zn/Total Parenteral Nutrition/Amino Acids/Dextrose/ Fat Emulsion Intravenous (Sodium Chlori... 1,820 ml @ 75.833 mls/ hr TPN CONT IV Last administered on 07/16/16 21:03; Start 07/16/16 at 22: 00; Stop 07/17/16 at 21:59; Status DC Ondansetron HCl (Zofran) 4 mg PRN Q6HRS PRN IV NAUSEA/VOMITING Last administered on 07/21/16 08:48; Start 07/16/16 at 17:15; Stop 07/31/16 at 15:01; Status DC Diphenhydramine HCl (Benadryl) 25 mg PRN Q6HRS PRN PO ITCHING Last administered on 07/25/16 23:38; Start 07/16/16 at 17:45; Stop 07/31/16 at 15:01 ; Status DC Lidocaine (Xylocaine) 1 sang BID TP Last administered on 08/04/16 08:53; Start 07/17/16 at 09:00 Zinc Oxide 1 sang 1 sang BID TP Last administered on 08/04/16 08:53; Start at 09:30 Sodium Chloride/ Sodium Acetate/ Potassium Chloride/ Potassium Acetate/ Potassium Phosphate/ Magnesium Sulfate/ Calcium Gluconate/ Multivitamins/ Minerals/Chromium/ Copper/Manganese/ Seleni/Zn/Total Parenteral Nutrition/Amino Acids/Dextrose/ Fat Emulsion Intravenous (Sodium Chlori... 1,920 ml @ 80 mls/ hr TPN CONT IV Last administered on 07/17/16 22:13; Start 07/17/16 at 22:00; Stop 07/18/16 at 21:59; Status DC Furosemide 40 mg 40 mg 1X ONCE IVP Last administered on 07/18/16 11:43; Start 07/18/16 at 11:00; Stop 07/18/16 at 11:07; Status DC Sodium Chloride 220 meq/Sodium Acetate 90 meq/ Potassium Chloride 50 meq/ Potassium Acetate 15 meq/Potassium Phosphate 10 mmol/ Magnesium Sulfate 50 meq/ Calcium Gluconate 3 meq/ Multivitamins/ Minerals 10 ml/ Chromium/Copper/ Manganese/Seleni/ Zn 1 ml/Total Parenteral Nutrition/Amino Acids/Dextro... 1, 920 ml @ 80 mls/hr TPN CONT IV Last administered on 07/19/16 00:03; Start 07/18/16 at 22:00; Stop 07/19/16 at 21:59; Status DC Meropenem 1 gm/ Sodium Chloride 100 ml @ 200 mls/hr Q8HRS IV Last administered on 07/20/16 05:21; Start 07/18/16 at 14:00; Stop 07/20/16 at 11:25; Status DC Micafungin Sodium 100 mg/Dextrose 100 ml @ 100 mls/hr Q24H IV Last administered on 07/19/16 15:05; Start 07/18/16 at 14:00; Stop 07/20/16 at 11:25; Status DC Daptomycin/Sodium Chloride (Cubicin/Iv Sodium Chloride 0.9% 50ml) 50 ml @ 100 mls/hr Q24H IV Last administered on 07/19/16 16:56; Start 07/18/16 at 15:00; Stop 07/20/16 at 11:25; Status DC Alteplase, Recombinant (Cathflo) 2 mg 1X ONCE INT CAT Last administered on 07/19 06:24; Start 07/19/16 at 07:00; Stop 07/19/16 at 07:01; Status DC Gentamicin Sulfate 1 each 1 each PRN DAILY PRN MC SEE COMMENTS Last administered on 07/25/16 15:31; Start 07/19/16 at 12:15; Stop 07/25/16 at 16:14 ; Status DC Gentamicin Sulfate/Sodium Chloride (Iv Sodium Chloride 0.9% 100ml) 106.75 ml @ 106.75 mls/hr Q24H IV Last administered on 07/25/16 15:31; Start 07/19/16 at 13 :00; Stop 07/25/16 at 16:12; Status DC Gentamicin Sulfate 1 each 1 each 1X ONCE MC Last administered on 07/19/16 23: 00; Start 07/19/16 at 23:00; Stop 07/19/16 at 23:01; Status DC Sodium Chloride/ Sodium Acetate/ Potassium Chloride/ Potassium Acetate/ Potassium Phosphate/ Magnesium Sulfate/ Calcium Gluconate/ Multivitamins/ Minerals/Chromium/ Copper/Manganese/ Seleni/Zn/Total Parenteral Nutrition/Amino Acids/Dextrose/ Fat Emulsion Intravenous (Sodium Chlori... 1,920 ml @ 80 mls/ hr TPN CONT IV Last administered on 07/19/16 20:51; Start 07/19/16 at 22:00; Stop 07/20/16 at 21:59; Status DC Hyoscyamine (Anaspaz) 0.125 mg PRN Q6HRS PRN PO BLADDER SPASM; Start 07/20/16 at 09:00; Stop 07/31/16 at 15:01; Status DC Phenazopyridine HCl 200 mg 200 mg PRN TID PRN PO BLADDER SPASM Last administered on 07/21/16 20:14; Start 07/20/16 at 09:00; Stop 07/31/16 at 15:01; Status DC Linezolid 300 ml @ 300 mls/hr Q12HR IV Last administered on 07/25/16 09:02; Start 07/20/16 at 12:00; Stop 07/25/16 at 16:12; Status DC Sodium Chloride 220 meq/Sodium Acetate 90 meq/ Potassium Chloride 50 meq/ Potassium Acetate 15 meq/Potassium Phosphate 10 mmol/ Magnesium Sulfate 50 meq/ Calcium Gluconate 3 meq/ Multivitamins/ Minerals 10 ml/ Chromium/Copper/ Manganese/Seleni/ Zn 1 ml/Total Parenteral Nutrition/Amino Acids/Dextro... 1, 920 ml @ 80 mls/hr TPN CONT IV Last administered on 07/20/16 21:30; Start 07/20/16 at 22:00; Stop 07/21/16 at 21:59; Status DC Sodium Chloride/ Sodium Acetate/ Potassium Chloride/ Potassium Acetate/ Potassium Phosphate/ Magnesium Sulfate/ Multivitamins/ Minerals/Chromium/ Copper /Manganese/ Seleni/Zn/Total Parenteral Nutrition/Amino Acids/Dextrose/ Fat Emulsion Intravenous (Sodium Chloride/ Potass... 1,920 ml @ 80 mls/hr TPN CONT IV Last administered on 07/21/16 22:05; Start 07/21/16 at 22:00; Stop at 21:59; Status DC Alteplase, Recombinant 2 mg 2 mg PRN DAILY PRN INT CAT INFLAMMATION Last administered on 07/27/16 11:31; Start 07/21/16 at 15:00 Sodium Chloride 220 meq/Sodium Acetate 90 meq/ Potassium Chloride 50 meq/ Potassium Acetate 15 meq/Potassium Phosphate 10 mmol/ Magnesium Sulfate 50 meq/ Multivitamins/ Minerals 10 ml/ Chromium/Copper/ Manganese/Seleni/ Zn 1 ml/Total Parenteral Nutrition/Amino Acids/Dextrose/ Fat Emuls... 1,920 ml @ 80 mls/hr TPN CONT IV Last administered on 07/22/16 20:53; Start 07/22/16 at 22:00; Stop 07/23/16 at 21:59; Status DC Sodium Chloride/ Sodium Acetate/ Potassium Chloride/ Potassium Acetate/ Potassium Phosphate/ Magnesium Sulfate/ Multivitamins/ Minerals/Chromium/ Copper /Manganese/ Seleni/Zn/Total Parenteral Nutrition/Amino Acids/Dextrose/ Fat Emulsion Intravenous (Sodium Chloride/ Potass... 1,920 ml @ 80 mls/hr TPN CONT IV Last administered on 07/23/16 21:16; Start 07/23/16 at 22:00; Stop 07/24 at 21:59; Status DC Gentamicin Sulfate 1 each 1 each 1X ONCE MC ; Start 07/23/16 at 22:00; Stop 07/23 at 22:01; Status Cancel Sodium Chloride/ Sodium Acetate/ Potassium Chloride/ Potassium Acetate/ Potassium Phosphate/ Magnesium Sulfate/ Multivitamins/ Minerals/Chromium/ Copper /Manganese/ Seleni/Zn/Total Parenteral Nutrition/Amino Acids/Dextrose/ Fat Emulsion Intravenous (Sodium Chloride/ Potass... 1,920 ml @ 80 mls/hr TPN CONT IV Last administered on 07/24/16 21:15; Start 07/24/16 at 22:00; Stop 04/30 at 21:59; Status DC Gentamicin Sulfate 1 each 1X ONCE MC ; Start 07/25/16 at 12:30; Stop 07/25/16 at 12:31; Status Cancel Amlodipine Besylate 5 mg 5 mg DAILY PO Last administered on 07/27/16 11:12; Start 07/25/16 at 12:00; Stop 07/29/16 at 08:44; Status DC Sodium Chloride 220 meq/Sodium Acetate 90 meq/ Potassium Chloride 30 meq/ Potassium Acetate 15 meq/Potassium Phosphate 10 mmol/ Magnesium Sulfate 50 meq/ Multivitamins/ Minerals 10 ml/ Chromium/Copper/ Manganese/Seleni/ Zn 1 ml/Total Parenteral Nutrition/Amino Acids/Dextrose/ Fat Emuls... 1,920 ml @ 80 mls/hr TPN CONT IV Last administered on 07/25/16 22:25; Start 07/25/16 at 22:00; Stop 07/26/16 at 21:59; Status DC Sodium Chloride/ Sodium Acetate/ Potassium Chloride/ Potassium Acetate/ Potassium Phosphate/ Magnesium Sulfate/ Multivitamins/ Minerals/Chromium/ Copper /Manganese/ Seleni/Zn/Total Parenteral Nutrition/Amino Acids/Dextrose/ Fat Emulsion Intravenous (Sodium Chloride/ Potass... 1,920 ml @ 80 mls/hr TPN CONT IV Last administered on 07/26/16 23:16; Start 07/26/16 at 22:00; Stop at 21:59; Status DC Furosemide 20 mg 20 mg 1X ONCE IVP Last administered on 07/27/16 11:31; Start 07/27/16 at 09:00; Stop 07/27/16 at 09:01; Status DC Daptomycin 340 mg/ Sodium Chloride 50 ml @ 100 mls/hr Q24H IV Last administered on 07/29/16 15:05; Start 07/27/16 at 13:00; Stop 07/30/16 at 07:25 ; Status DC Piperacillin Sod/ Tazobactam Sod 3.375 gm/Sodium Chloride 50 ml @ 100 mls/hr Q6HRS IV Last administered on 07/30/16 05:30; Start 07/27/16 at 12:30; Stop at 07:25; Status DC Fluconazole/ Sodium Chloride 100 ml @ 100 mls/hr Q24H IV Last administered on 07/28/16 13:32; Start 07/27/16 at 13:00; Stop 07/29/16 at 00:53; Status DC Sodium Chloride 1,000 ml @ 1,000 mls/hr 1X ONCE IV Last administered on 12:34; Start 07/27/16 at 12:30; Stop 07/27/16 at 13:29; Status DC Sodium Chloride 220 meq/Sodium Acetate 90 meq/ Potassium Chloride 30 meq/ Potassium Acetate 15 meq/Potassium Phosphate 10 mmol/ Magnesium Sulfate 45 meq/ Multivitamins/ Minerals 10 ml/ Chromium/Copper/ Manganese/Seleni/ Zn 1 ml/Total Parenteral Nutrition/Amino Acids/Dextrose/ Fat Emuls... 1,920 ml @ 80 mls/hr TPN CONT IV Last administered on 07/27/16 22:38; Start 07/27/16 at 22:00; Stop 07/28/16 at 21:59; Status DC Sodium Chloride (Iv Sodium Chloride 0.9% 1000ml Bag) 1,000 ml @ 45 mls/hr [id number] IV Last administered on 07/28/16 03:24; Start 07/27/16 at 17:00; Stop 07/28/16 at 10:27; Status DC Acetaminophen 650 mg 650 mg PRN Q6HRS PRN SC fever Last administered on 03:57; Start 07/27/16 at 16:30; Stop 07/29/16 at 08:33; Status DC Sodium Chloride 1,000 ml @ 427.5 mls/ hr Q2H21M IV Last administered on 19:30; Start 07/27/16 at 19:30; Stop 07/27/16 at 23:30; Status DC Sodium Chloride 220 meq/Sodium Acetate 90 meq/ Potassium Chloride 30 meq/ Potassium Acetate 15 meq/Potassium Phosphate 10 mmol/ Magnesium Sulfate 45 meq/ Multivitamins/ Minerals 10 ml/ Chromium/Copper/ Manganese/Seleni/ Zn 1 ml/Total Parenteral Nutrition/Amino Acids/Dextrose/ Fat Emuls... 1,920 ml @ 80 mls/hr TPN CONT IV Last administered on 07/28/16 21:43; Start 07/28/16 at 22:00; Stop 07/29/16 at 21:59; Status DC Micafungin Sodium/ Dextrose (Mycamine) 100 ml @ 100 mls/hr Q24H IV Last administered on 08/04/16 00:48; Start 07/29/16 at 01:00 Lorazepam (Ativan) 0.05 mg PRN Q4HRS PRN IV ANXIETY / AGITATION; Start at 02:30; Stop 07/29/16 at 02:48; Status DC Lorazepam (Ativan) 0.5 mg PRN Q4HRS PRN IV ANXIETY / AGITATION Last administered on 07/29/16 03:18; Start 07/29/16 at 03:00 Acetaminophen (Tylenol) 650 mg PRN Q4HRS PRN SC MILD PAIN / TEMP; Start at 08:30 Ketorolac Tromethamine (Toradol) 30 mg PRN Q6HRS PRN IV PAIN/FEVER Last administered on 07/30/16 00:50; Start 07/29/16 at 08:30; Stop 07/30/16 at 13:01 ; Status DC Pantoprazole Sodium 40 mg 40 mg DAILYAC IVP Last administered on 08/04/16 08: 54; Start 07/29/16 at 09:00 Sodium Chloride 1,000 ml @ 45 mls/hr [id number] IV Last administered on 09:17; Start 07/29/16 at 08:45; Stop 07/31/16 at 15:01; Status DC Sodium Chloride/ Sodium Acetate/ Potassium Chloride/ Potassium Acetate/ Potassium Phosphate/ Magnesium Sulfate/ Multivitamins/ Minerals/Chromium/ Copper /Manganese/ Seleni/Zn/Total Parenteral Nutrition/Amino Acids/Dextrose/ Fat Emulsion Intravenous (Sodium Chloride/ Potass... 1,920 ml @ 80 mls/hr TPN CONT IV Last administered on 07/29/16 22:06; Start 07/29/16 at 22:00; Stop at 21:59; Status DC Lidocaine/Sodium Bicarbonate 20 ml 20 ml STK-MED ONCE IJ ; Start 07/29/16 at 13: 13; Stop 07/29/16 at 13:14; Status DC Heparin Sodium/ Sodium Chloride 500 ml @ As Directed STK-MED ONCE .ROUTE ; Start 07/29/16 at 13:13; Stop 07/29/16 at 13:14; Status DC Lidocaine/ Epinephrine (Xylocaine 1%-Epi 1:100,000) 20 ml STK-MED ONCE .ROUTE ; Start 07/29/16 at 13:22; Stop 07/29/16 at 13:23; Status DC Midazolam HCl (Versed) 5 mg STK-MED ONCE .ROUTE ; Start 07/29/16 at 13:32; Stop 07/29/16 at 13:33; Status DC Fentanyl Citrate (Fentanyl 5ml Vial) 250 mcg STK-MED ONCE .ROUTE ; Start at 13:32; Stop 07/29/16 at 13:33; Status DC Heparin Sodium/ Sodium Chloride 1,000 unit 1X ONCE IART Last administered on 13:45; Start 07/29/16 at 13:45; Stop 07/29/16 at 13:48; Status DC Midazolam HCl (Versed) 5 mg 1X ONCE IV Last administered on 07/29/16 13:45; Start 07/29/16 at 13:45; Stop 07/29/16 at 13:48; Status DC Fentanyl Citrate (Fentanyl 5ml Vial) 250 mcg 1X ONCE IV Last administered on 13:45; Start 07/29/16 at 13:45; Stop 07/29/16 at 13:48; Status DC Lidocaine/ Epinephrine 20 ml 20 ml 1X ONCE IJ Last administered on 07/29/16 13:45; Start 07/29/16 at 13:45; Stop 07/29/16 at 13:48; Status DC Sodium Chloride 220 meq/Sodium Acetate 90 meq/ Potassium Chloride 15 meq/ Potassium Acetate 30 meq/Potassium Phosphate 10 mmol/ Magnesium Sulfate 45 meq/ Multivitamins/ Minerals 10 ml/ Chromium/Copper/ Manganese/Seleni/ Zn 1 ml/Total Parenteral Nutrition/Amino Acids/Dextrose/ Fat Emuls... 1,920 ml @ 80 mls/hr TPN CONT IV ; Start 07/30/16 at 22:00; Stop 07/31/16 at 21:59; Status DC Norepinephrine Bitartrate 8 mg/ Sodium Chloride 258 ml @ 1.93 mls/hr 1X ONCE IV Last administered on 07/30/16 11:17; Start 07/30/16 at 11:15; Stop at 15:43; Status DC Norepinephrine Bitartrate/Sodium Chloride (Levophed Vial/ Iv Sodium Chloride 0.9 % 250ml) 258 ml @ 0 mls/hr CONT PRN IV SEE I/O RECORD Last administered on 08/02 19:54; Start 07/30/16 at 11:15; Stop 08/04/16 at 09:29; Status DC Furosemide 60 mg 60 mg 1X ONCE IVP Last administered on 07/30/16 11:14; Start 07/30/16 at 11:15; Stop 07/30/16 at 11:16; Status DC Sodium Chloride 500 ml @ 500 mls/hr Q1H IV Last administered on 07/30/16 17: 04; Start 07/30/16 at 14:30; Stop 07/30/16 at 15:29; Status DC Albumin Human 100 ml @ 100 mls/hr Q8HRS IV Last administered on 07/31/16 05: 37; Start 07/30/16 at 14:30; Stop 07/31/16 at 06:59; Status DC Furosemide/Sodium Chloride (Lasix Drip/Iv Sodium Chloride 0.9% 100ml) 100 ml @ 0 mls/hr CONT PRN IV SEE I/O RECORD Last administered on 07/31/16 03:17; Start 07/30/16 at 14:30; Stop 08/01/16 at 13:19; Status DC Ondansetron HCl (Zofran) 8 mg PRN Q8HRS PRN IV NAUSEA/VOMITING Last administered on 07/30/16 14:38; Start 07/30/16 at 14:30 Sodium Bicarbonate 50 meq 50 meq 1X ONCE IV Last administered on 07/30/16 14: 43; Start 07/30/16 at 14:30; Stop 07/30/16 at 14:31; Status DC Heparin Sodium/ Sodium Chloride 500 ml @ As Directed STK-MED ONCE .ROUTE ; Start 07/30/16 at 14:49; Stop 07/30/16 at 14:50; Status DC Lidocaine HCl 20 ml STK-MED ONCE .ROUTE ; Start 07/30/16 at 14:49; Stop at 14:50; Status DC Midazolam HCl (Versed) 2 mg STK-MED ONCE .ROUTE ; Start 07/30/16 at 15:19; Stop 07/30/16 at 15:20; Status DC Heparin Sodium/ Sodium Chloride 1,000 unit 1X ONCE IART Last administered on 15:44; Start 07/30/16 at 15:45; Stop 07/30/16 at 15:46; Status DC Midazolam HCl (Versed) 1.5 mg 1X ONCE IV Last administered on 07/30/16 15:44 ; Start 07/30/16 at 15:45; Stop 07/30/16 at 15:46; Status DC Lidocaine HCl 20 ml 1X ONCE IJ Last administered on 07/30/16 15:44; Start at 15:45; Stop 07/30/16 at 15:46; Status DC Heparin Sodium (Porcine) [id number] unit 10,000 unit STK-MED ONCE .ROUTE ; Start at 15:54; Stop 07/30/16 at 15:55; Status DC Fentanyl Citrate 30 ml @ 0 mls/hr CONT PRN PRN IV PROTOCOL Last administered on 08/03/16 14:18; Start 07/30/16 at 16:45 Sodium Bicarbonate/ Dextrose 1,150 ml @ 125 mls/hr 1X ONCE IV Last administered on 07/30/16 18:34; Start 07/30/16 at 17:30; Stop 07/31/16 at 02:41 ; Status DC Succinylcholine Chloride 200 mg 200 mg STK-MED ONCE .ROUTE ; Start 07/30/16 at 19:47; Stop 07/30/16 at 19:48; Status DC Propofol 100 ml @ As Directed STK-MED ONCE IV ; Start 07/30/16 at 19:48; Stop 07/30/16 at 19:49; Status DC Midazolam HCl (Versed 100mg/ 100ml Premix) 100 ml @ 0 mls/hr CONT PRN IV SEE I/ O RECORD Last administered on 08/03/16 12:18; Start 07/30/16 at 21:15 Sodium Bicarbonate 50 meq 50 meq 1X ONCE IV Last administered on 07/30/16 22: 15; Start 07/30/16 at 22:30; Stop 07/30/16 at 22:31; Status DC Dopamine HCl/ Dextrose 250 ml @ 11.513 mls/ hr CONT PRN IV SEE I/O RECORD Last administered on 07/31/16 20:16; Start 07/30/16 at 22:15; Stop 08/04/16 at 09:29; Status DC Sodium Bicarbonate/ Dextrose 1,150 ml @ 125 mls/hr Q9H12M IV Last administered on 08/01/16 09:30; Start 07/31/16 at 03:00; Stop 08/01/16 at 13:19 ; Status DC Propofol (Diprivan) 1,000 mg STK-MED ONCE IV ; Start 07/30/16 at 20:00; Stop at 08:16; Status DC Succinylcholine Chloride 200 mg 200 mg STK-MED ONCE .ROUTE ; Start 07/30/16 at 20:00; Stop 07/31/16 at 08:16; Status DC Tigecycline 50 mg/ Sodium Chloride 50 ml @ 100 mls/hr Q12HR IV Last administered on 08/04/16 09:01; Start 07/31/16 at 21:00; Stop 08/04/16 at 10:00 ; Status DC Tigecycline/ Sodium Chloride (Tygacil/Iv Sodium Chloride 0.9% 100ml) 100 ml @ 200 mls/hr 1X ONCE IV Last administered on 07/31/16 09:22; Start 07/31/16 at 09:00; Stop 07/31/16 at 09:29; Status DC Darbepoetin Sarbjit 60 mcg 60 mcg [id number] SQ Last administered on 07/31/16 21:09 ; Start 07/31/16 at 21:00 Albumin Human 100 ml @ 100 mls/hr 1X ONCE IV Last administered on 07/31/16 11:40; Start 07/31/16 at 11:15; Stop 07/31/16 at 12:14; Status DC Albumin Human 100 ml @ 100 mls/hr 1X ONCE IV Last administered on 07/31/16 12:03; Start 07/31/16 at 11:15; Stop 07/31/16 at 12:14; Status DC Sodium Chloride (Iv Sodium Chloride 0.9% 1000ml Bag) 1,000 ml @ 1,000 mls/hr Q1H PRN IV hypotension; Start 07/31/16 at 11:33; Stop 07/31/16 at 17:32; Status DC Info (PHARMACY MONITORING -- do not chart) 1 each PRN DAILY PRN MC SEE COMMENTS ; Start 07/31/16 at 11:45 Info (PHARMACY MONITORING -- do not chart) 1 each PRN DAILY PRN MC SEE COMMENTS ; Start 07/31/16 at 11:45; Status UNV Hydrocortisone Sodium Succinate (Solu-Cortef) 100 mg Q8HRS IV Last administered on 08/04/16 06:16; Start 08/01/16 at 07:00; Stop 08/04/16 at 09:29 ; Status DC Albuterol/ Ipratropium (Duoneb) 3 ml RTQID NEB Last administered on 08/04/16 07:41; Start 08/01/16 at 08:00 Albuterol/ Ipratropium 3 ml 3 ml STK-MED ONCE .ROUTE Last administered on 07:34; Start 08/01/16 at 06:59; Stop 08/01/16 at 07:00; Status DC Sodium Chloride 1,000 ml @ 1,000 mls/hr Q1H PRN IV hypotension; Start 08/01/16 at 06:57; Stop 08/01/16 at 12:56; Status DC Albumin Human (Albuminar) 200 ml @ 200 mls/hr 1X PRN PRN IV Hypotension; Start 08/01/16 at 07:00; Stop 08/01/16 at 12:59; Status DC Info (PHARMACY MONITORING -- do not chart) 1 each PRN DAILY PRN MC SEE COMMENTS ; Start 08/01/16 at 07:00; Status UNV Info 1 each 1 each PRN DAILY PRN MC SEE COMMENTS Last administered on 13:03; Start 08/01/16 at 13:30 Sodium Chloride 220 meq/Sodium Acetate 90 meq/ Potassium Chloride 15 meq/ Potassium Acetate 30 meq/Potassium Phosphate 10 mmol/ Magnesium Sulfate 45 meq/ Multivitamins/ Minerals 10 ml/ Chromium/Copper/ Manganese/Seleni/ Zn 1 ml/Total Parenteral Nutrition/Amino Acids/Dextrose/ Fat Emuls... 1,920 ml @ 80 mls/hr TPN CONT IV Last administered on 08/01/16 21:56; Start 08/01/16 at 22:00; Stop 08/02/16 at 21:59; Status DC Potassium Chloride (KCl Premix 20meq) 50 ml @ 50 mls/hr Q1H IV Last administered on 08/01/16 19:05; Start 08/01/16 at 17:00; Stop 08/01/16 at 18:59 ; Status DC Insulin Aspart 0-6 UNITS TIDWMEALS SQ Last administered on 08/02/16 11:33; Start 08/02/16 at 12:00; Stop 08/02/16 at 14:34; Status DC Sodium Chloride 220 meq/Sodium Acetate 90 meq/ Potassium Chloride 15 meq/ Potassium Acetate 30 meq/Magnesium Sulfate 45 meq/ Multivitamins/ Minerals 10 ml / Chromium/Copper/ Manganese/Seleni/ Zn 1 ml/Total Parenteral Nutrition/Amino Acids/Dextrose/ Fat Emulsion Intravenous 1,920 ml @ 80 mls/hr TPN CONT IV Last administered on 08/02/16 21:34; Start 08/02/16 at 22:00; Stop 08/03/16 at 21:59; Status DC Levofloxacin/ Dextrose 150 ml @ 100 mls/hr 1X ONCE IV Last administered on 14:35; Start 08/02/16 at 14:00; Stop 08/02/16 at 15:29; Status DC Daptomycin/Sodium Chloride (Cubicin/Iv Sodium Chloride 0.9% 50ml) 50 ml @ 100 mls/hr ONCE ONCE IV Last administered on 08/02/16 14:34; Start 08/02/16 at 15 :00; Stop 08/02/16 at 15:29; Status DC Insulin Aspart 0-6 UNITS Q6HRS SQ Last administered on 08/04/16 06:25; Start 08/02/16 at 18:00 Sodium Chloride (Iv Sodium Chloride 0.9% 1000ml Bag) 1,000 ml @ 1,000 mls/hr Q1H PRN IV hypotension; Start 08/03/16 at 07:26; Stop 08/03/16 at 13:25; Status DC Diphenhydramine HCl (Benadryl) 25 mg 1X PRN PRN IV ITCHING; Start 08/03/16 at 07:30; Stop 08/04/16 at 07:29; Status DC Diphenhydramine HCl (Benadryl) 25 mg 1X PRN PRN IV ITCHING; Start 08/03/16 at 07:30; Stop 08/04/16 at 07:29; Status DC Sodium Chloride (Normal Saline Flush) 10 ml 1X PRN PRN IV AP catheter pack; Start 08/03/16 at 07:30; Stop 08/04/16 at 07:29; Status DC Sodium Chloride 10 ml 10 ml 1X PRN PRN IV 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 catheter 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; Start 08/03/16 at 07:30; Stop 08/04/16 at 07:29; Status DC Sodium Chloride (Iv Sodium Chloride 0.9% 1000ml Bag) 1,000 ml @ 400 mls/hr Q2H30M PRN IV PATENCY; Start 08/03/16 at 07:26; Stop 08/03/16 at 19:25; Status DC Info 1 each 1 each PRN DAILY PRN MC SEE COMMENTS; Start 08/03/16 at 07:30; Status UNV Albumin Human 200 ml @ 200 mls/hr Q2HR IV Last administered on 08/03/16 10:00 ; Start 08/03/16 at 08:44; Stop 08/03/16 at 10:59; Status DC Sodium Chloride 160 meq/Sodium Acetate 60 meq/ Potassium Chloride 15 meq/ Potassium Acetate 30 meq/Magnesium Sulfate 25 meq/ Multivitamins/ Minerals 10 ml / Chromium/Copper/ Manganese/Seleni/ Zn 1 ml/Total Parenteral Nutrition/Amino Acids/Dextrose/ Fat Emulsion Intravenous 1,500 ml @ 62.5 mls/hr TPN CONT IV Last administered on 08/03/16 22:52; Start 08/03/16 at 22:00; Stop 08/04/16 at 21:59 Levofloxacin/ Dextrose 100 ml @ 100 mls/hr 1X ONCE IV ; Start 08/04/16 at 07: 30; Stop 08/04/16 at 08:30; Status DC Daptomycin 450 mg/ Sodium Chloride 50 ml @ 100 mls/hr ONCE ONCE IV Last administered on 08/04/16 09:55; Start 08/04/16 at 08:00; Stop 08/04/16 at 08:30 ; Status DC Tigecycline/ Sodium Chloride (Tygacil/Iv Sodium Chloride 0.9% 50ml) 50 ml @ 100 mls/hr Q12HR IV ; Start 08/04/16 at 21:00 Hydrocortisone Sodium Succinate (Solu-Cortef) 50 mg Q8HRS IV ; Start 08/04/16 at 14:00 Active Scripts Active Dilaudid (Hydromorphone Hcl) 4 Mg Tablet 4 Mg PO Q6HRS Phenazopyridine Hcl 200 Mg Tablet 200 Mg PO PRN TID PRN FENTANYL 50mcg/hr (Fentanyl) 1 Each Patch.td72 1 Patch TD Q3DAYS Anaspaz (Hyoscyamine Sulfate) 0.125 Mg Tab.rapdis 0.125 Mg PO Q6HRS PRN Cefpodoxime Proxetil 200 Mg Tablet 200 Mg PO BID Sertraline Hcl 50 Mg Tablet 100 Mg PO DAILY 30 Days Protonix (Pantoprazole Sodium) 40 Mg Tablet.dr 1 Tab PO DAILY Zinc Oxide 56.7 Gm Oint...g. 1 Sang TP BID Lidocaine 35.44 Gm Oint...g. 1 Sang TP BID Ondansetron Odt (Ondansetron) 4 Mg Tab.rapdis 8 Mg PO PRN Q8HRS PRN Gas-X (Simethicone) 80 Mg Tab.chew 80 Mg PO PRN QID PRN Reported Lorazepam 0.5 Mg Tablet 0.5 Mg PO PRN BID PRN Vitals/I & O Vital Sign - Last 24 Hours 08/03/16 08/03/16 08/03/16 08/03/16 10:30 11:00 11:00 12:00 Temp 97.7 97.7 Pulse 96 96 86 Resp 20 B/P 100/54 100/54 118/58 Pulse Ox 98 99 O2 Delivery Ventilator Ventilator 08/03/16 08/03/16 08/03/16 08/03/16 12:00 12:00 13:00 13:07 Temp 97.9 98.7 97.9 98.7 Pulse 86 90 Resp 20 22 B/P 118/58 138/68 Pulse Ox 99 99 99 O2 Delivery Mechanical Ventilator Ventilator Ventilator Ventilator 08/03/16 08/03/16 08/03/16 08/03/16 13:18 14:00 14:18 14:48 Temp 98.7 98.7 Pulse 94 Resp 22 B/P 144/68 Pulse Ox 100 O2 Delivery Ventilator Ventilator Ventilator O2 Flow Rate 08/03/16 08/03/16 08/03/16 08/03/16 14:55 15:00 16:00 16:00 Pulse 98 96 Resp 24 B/P 124/58 122/56 Pulse Ox 100 100 O2 Delivery Ventilator Ventilator Mechanical Ventilator 08/03/16 08/03/16 08/03/16 08/03/16 16:00 16:23 17:00 18:00 Temp 99.4 99.4 Pulse 96 98 96 Resp 25 24 24 B/P 122/56 126/58 122/58 Pulse Ox 100 99 100 100 O2 Delivery Ventilator Ventilator Ventilator Ventilator 08/03/16 08/03/16 08/03/16 08/03/16 19:00 19:45 20:00 20:04 Temp 97.7 97.7 Pulse 94 95 Resp 22 20 B/P 116/54 106/50 Pulse Ox 99 99 99 O2 Delivery Ventilator Mechanical Ventilator Ventilator Ventilator O2 Flow Rate 50.0 08/03/16 08/03/16 08/03/16 08/03/16 21:00 21:35 22:00 23:00 Pulse 90 90 106 Resp 20 20 20 B/P 114/52 116/54 106/46 Pulse Ox 99 100 99 99 O2 Delivery Ventilator Ventilator Ventilator Ventilator 08/03/16 08/03/16 08/04/16 08/04/16 23:20 23:50 00:00 01:00 Temp 97.0 97.0 Pulse 94 88 Resp 20 20 B/P 106/48 102/48 Pulse Ox 100 99 99 O2 Delivery Ventilator Mechanical Ventilator Ventilator Ventilator O2 Flow Rate 50.0 08/04/16 08/04/16 08/04/16 08/04/16 01:15 02:13 03:17 03:25 Pulse 88 87 Resp 20 20 B/P 102/48 108/50 Pulse Ox 100 99 100 100 O2 Delivery Ventilator Ventilator Ventilator Ventilator 08/04/16 08/04/16 08/04/16 08/04/16 03:55 04:00 05:00 05:23 Temp 96.8 96.8 Pulse 92 91 Resp 20 20 B/P 133/56 119/46 Pulse Ox 100 100 100 O2 Delivery Mechanical Ventilator Ventilator Ventilator Ventilator O2 Flow Rate 50.0 08/04/16 08/04/16 08/04/16 08/04/16 06:07 07:00 07:11 08:00 Temp 98.3 98.3 Pulse 92 94 Resp 20 25 B/P 123/47 134/54 Pulse Ox 100 100 100 O2 Delivery Ventilator Ventilator Ventilator Mechanical Ventilator 08/04/16 08/04/16 08/04/16 08/04/16 08:00 08:00 09:00 10:03 Temp 98.7 98.7 Pulse 91 91 92 94 Resp 25 24 24 B/P 118/49 118/49 121/55 133/61 Pulse Ox 100 100 100 O2 Delivery Ventilator Ventilator Ventilator Intake and Output 08/03/16 08/03/16 08/04/16 15:00 23:00 07:00 Intake Total 927 ml Output Total 140 ml 185 ml 185 ml Balance -140 ml -185 ml 742 ml MATT PALACIOS MD Aug 04, 2016 10:19
--- NOTE | 2016-08-04 11:23 | PDOC ---
SUBJECTIVE ROS JULIO C/ ATN remains sedated and intubated OBJECTIVE Vital Signs Vital Signs Date Time Temp Pulse Resp B/P Pulse Ox O2 Delivery O2 Flow Rate FiO2 08/04/16 10:03 98.7 94 24 133/61 100 Ventilator 98.7 08/04/16 03:55 50.0 I & 0 Intake and Output 08/04/16 07:00 Intake Total 927 ml Output Total 510 ml Balance 417 ml IV Total 927 ml Output Urine Total 510 ml PHYSICAL EXAM Physical Exam GEN: SEdated and intubated, In no distress EYES: Vision Unchanged, Conjunctiva Normal EN: No EN Drainage, Mucous Membranes moist NECK: ? JVD, + JVP, Supple, no Thyromegaly CVS: S1S2, ? Murmur, No Gallop, No Rub,+2 Edema RESP: no Rales, no Rhonchi,no Acc. 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 , HypoTN: improved and now off of pressors Lowish K - suspect due to Hydrocort - watch on TPN, replace as needed. Edema/ Anasarca - Fluid removal as nicole on HD due to tenous Hemodynamix; will initiate Diuresis with lasix gtt now that she is Hemodynamically improved ^na - TPN changes as recc Resp Failure - CXR with CHF, Uf as nicole on HD Met Acidosis (resolved) ^ Lactate will follow to resolution ^Mag - may need to decrease in TPN - Discussed Plan of Care with RN at bedside COMMENT/RELEVANT DATA Meds Current Medications Medications (Trade) Dose Ordered Sig/Alex Start Time Stop Time Status Last Admin Dose Admin Acetaminophen (Tylenol) 650 mg PRN Q4HRS PRN 07/29/16 08:30 Acetaminophen 650 mg 650 mg PRN Q6HRS PRN 07/27/16 16:30 07/29/16 08:33 DC 07/29/16 03:57 650 MG Albumin Human 200 ml @ 200 mls/hr Q2HR 08/03/16 08:44 08/03/16 10:59 DC 08/03/16 10:00 200 MLS/HR Albumin Human (Albuminar) 100 ml @ 100 mls/hr 1X ONCE 07/31/16 11:15 07/31/16 12:14 DC 07/31/16 12:03 100 MLS/HR Albuterol/ Ipratropium (Duoneb) 3 ml RTQID 08/01/16 08:00 08/04/16 07:41 3 ML Albuterol/ Ipratropium 3 ml 3 ml STK-MED ONCE 08/01/16 06:59 08/01/16 07:00 DC 08/01/16 07:34 3 ML Alteplase, Recombinant (Cathflo) 2 mg PRN DAILY PRN 07/21/16 15:00 07/27/16 11:31 2 MG Amlodipine Besylate (Norvasc) 5 mg DAILY 07/25/16 12:00 07/29/16 08:44 DC 07/27/16 11:12 5 MG Daptomycin 340 mg/ Sodium Chloride 50 ml @ 100 mls/hr Q24H 07/27/16 13:00 07/30/16 07:25 DC 07/29/16 15:05 100 MLS/HR Daptomycin 450 mg/ Sodium Chloride 50 ml @ 100 mls/hr ONCE ONCE 08/04/16 08:00 08/04/16 08:30 DC 08/04/16 09:55 100 MLS/HR Daptomycin/Sodium Chloride (Cubicin/Iv Sodium Chloride 0.9% 50ml) 50 ml @ 100 mls/hr ONCE ONCE 08/02/16 15:00 08/02/16 15:29 DC 08/02/16 14:34 100 MLS/HR Darbepoetin Sarbjit 60 mcg 60 mcg WEEKLYHS 07/31/16 21:00 07/31/16 21:09 60 MCG Diphenhydramine HCl (Benadryl) 25 mg 1X PRN PRN 08/03/16 07:30 08/04/16 07:29 DC Dopamine HCl/ Dextrose 250 ml @ 11.513 mls/ hr CONT PRN 07/30/16 22:15 08/04/16 09:29 DC 07/31/16 20:16 11.513 MLS/HR Fentanyl Citrate 30 ml @ 0 mls/hr CONT PRN PRN 07/30/16 16:45 08/03/16 14:18 1.25 MLS/HR Fentanyl Citrate (Fentanyl 5ml Vial) 250 mcg 1X ONCE 07/29/16 13:45 07/29/16 13:48 DC 07/29/16 13:45 50 MCG Fentanyl Citrate 50 mcg 50 mcg PRN Q2HR PRN 07/15/16 23:30 07/16/16 08:52 DC 07/16/16 08:10 50 MCG Fluconazole/ Sodium Chloride (Diflucan 200mg/ 100ml Premix) 100 ml @ 100 mls/hr Q24H 07/27/16 13:00 07/29/16 00:53 DC 07/28/16 13:32 100 MLS/HR Furosemide 20 mg 20 mg 1X ONCE 07/27/16 09:00 07/27/16 09:01 DC 07/27/16 11:31 20 MG Furosemide 40 mg 40 mg 1X ONCE 07/18/16 11:00 07/18/16 11:07 DC 07/18/16 11:43 40 MG Furosemide 60 mg 60 mg 1X ONCE 07/30/16 11:15 07/30/16 11:16 DC 07/30/16 11:14 60 MG Furosemide/Sodium Chloride (Lasix Drip/Iv Sodium Chloride 0.9% 100ml) 100 ml @ 0 mls/hr CONT PRN 07/30/16 14:30 08/01/16 13:19 DC 07/31/16 03:17 10 MLS/HR Gentamicin Sulfate 1 each 1 each PRN DAILY PRN 07/19/16 12:15 07/25/16 16:14 DC 07/25/16 15:31 1 EACH Gentamicin Sulfate/Sodium Chloride (Iv Sodium Chloride 0.9% 100ml) 106.75 ml @ 106.75 mls/hr Q24H 07/19/16 13:00 07/25/16 16:12 DC 07/25/16 15:31 106.75 MLS/HR Gentamicin Sulfate 1 each 1X ONCE 07/25/16 12:30 07/25/16 12:31 Cancel Heparin Sodium (Porcine) 17700 unit 10,000 unit STK-MED ONCE 07/30/16 15:54 07/30/16 15:55 DC Heparin Sodium/ Sodium Chloride 1,000 unit 1X ONCE 07/30/16 15:45 07/30/16 15:46 DC 07/30/16 15:44 1,000 UNIT Hydrocortisone Sodium Succinate (Solu-Cortef) 50 mg Q8HRS 08/04/16 14:00 Hydromorphone HCl (Dilaudid) 4 mg PRN Q4HRS PRN 07/16/16 08:45 07/31/16 15:01 DC 07/30/16 09:23 4 MG Hyoscyamine (Anaspaz) 0.125 mg PRN Q6HRS PRN 07/20/16 09:00 07/31/16 15:01 DC Info (PHARMACY MONITORING -- do not chart) 1 each PRN DAILY PRN 07/31/16 11:45 UNV Info 1 each 1 each PRN DAILY PRN 08/03/16 07:30 UNV Insulin Aspart (Novolog) 0-6 UNITS Q6HRS 08/02/16 18:00 08/04/16 11:09 1 UNITS Insulin Aspart 0-6 UNITS TIDWMEALS 08/02/16 12:00 08/02/16 14:34 DC 08/02/16 11:33 1 UNITS Ketorolac Tromethamine (Toradol) 30 mg PRN Q6HRS PRN 07/29/16 08:30 07/30/16 13:01 DC 07/30/16 00:50 30 MG Levofloxacin/ Dextrose 100 ml @ 100 mls/hr 1X ONCE 08/04/16 07:30 08/04/16 08:30 DC 08/04/16 10:50 100 MLS/HR Lidocaine (Xylocaine) 1 nallely BID 07/17/16 09:00 08/04/16 08:53 1 NALLELY Lidocaine HCl 20 ml 1X ONCE 07/30/16 15:45 07/30/16 15:46 DC 07/30/16 15:44 20 ML Lidocaine/ Epinephrine (Xylocaine 1%-Epi 1:100,000) 20 ml STK-MED ONCE 07/29/16 13:22 07/29/16 13:23 DC Lidocaine/ Epinephrine 20 ml 20 ml 1X ONCE 07/29/16 13:45 07/29/16 13:48 DC 07/29/16 13:45 9 ML Lidocaine/Sodium Bicarbonate (Buffered Lidocaine 1%) 20 ml STK-MED ONCE 07/29/16 13:13 07/29/16 13:14 DC Linezolid 300 ml @ 300 mls/hr Q12HR 07/20/16 12:00 07/25/16 16:12 DC 07/25/16 09:02 300 MLS/HR Linezolid (Zyvox Premix) 300 ml @ 300 mls/hr Q12HR 07/16/16 10:00 07/18/16 13:28 DC 07/18/16 08:34 300 MLS/HR Lorazepam (Ativan) 0.5 mg PRN Q4HRS PRN 07/29/16 03:00 07/29/16 03:18 0.5 MG Meropenem/Sodium Chloride (Merrem/Iv Sodium Chloride 0.9% 100ml) 100 ml @ 200 mls/hr Q8HRS 07/18/16 14:00 07/20/16 11:25 DC 07/20/16 05:21 200 MLS/HR Micafungin Sodium/ Dextrose (Mycamine) 100 ml @ 100 mls/hr Q24H 07/29/16 01:00 08/04/16 00:48 100 MLS/HR Midazolam HCl (Versed 100mg/ 100ml Premix) 100 ml @ 0 mls/hr CONT PRN 07/30/16 21:15 08/03/16 12:18 2 MLS/HR Midazolam HCl (Versed) 1.5 mg 1X ONCE 07/30/16 15:45 07/30/16 15:46 DC 07/30/16 15:44 1.5 MG Norepinephrine Bitartrate 8 mg/ Sodium Chloride 258 ml @ 1.93 mls/hr 1X ONCE 07/30/16 11:15 07/30/16 15:43 DC 07/30/16 11:17 9.38 MLS/HR Norepinephrine Bitartrate/Sodium Chloride (Levophed Vial/ Iv Sodium Chloride 0.9% 250ml) 258 ml @ 0 mls/hr CONT PRN 07/30/16 11:15 08/04/16 09:29 DC 08/02/16 19:54 0 MLS/HR Ondansetron HCl (Zofran) 8 mg PRN Q8HRS PRN 07/30/16 14:30 07/30/16 14:38 8 MG Pantoprazole Sodium (Protonix) 40 mg DAILYAC 07/16/16 09:30 07/29/16 08:44 DC 07/27/16 11:11 40 MG Pantoprazole Sodium 40 mg 40 mg DAILYAC 07/29/16 09:00 08/04/16 08:54 40 MG Phenazopyridine HCl (Pyridium) 200 mg TID 07/16/16 09:30 07/20/16 08:58 DC 07/20/16 08:25 200 MG Phenazopyridine HCl 200 mg 200 mg PRN TID PRN 07/20/16 09:00 07/31/16 15:01 DC 07/21/16 20:14 200 MG Piperacillin Sod/ Tazobactam Sod 3.375 gm/Sodium Chloride 50 ml @ 100 mls/hr Q6HRS 07/27/16 12:30 07/30/16 07:25 DC 07/30/16 05:30 100 MLS/HR Piperacillin Sod/ Tazobactam Sod 4.5 gm/Sodium Chloride 100 ml @ 200 mls/hr 1X ONCE 07/15/16 22:00 07/15/16 22:29 DC 07/15/16 22:56 200 MLS/HR Potassium Chloride/Dextrose/ Sod Cl (KCl 20 Meq In D5W-1/2 NS) 1,000 ml @ 80 mls/hr [id number] 07/16/16 09:30 07/16/16 21:59 DC 07/16/16 10:54 80 MLS/HR Potassium Chloride (KCl Premix 20meq) 50 ml @ 50 mls/hr Q1H 08/01/16 17:00 08/01/16 18:59 DC 08/01/16 19:05 50 MLS/HR Propofol (Diprivan) 1,000 mg STK-MED ONCE 07/30/16 20:00 07/31/16 08:16 DC Simethicone (Gas-X) 80 mg PRN Q4HRS PRN 07/16/16 08:45 07/31/16 15:01 DC 07/24/16 22:30 80 MG Sodium Bicarbonate 150 meq/Dextrose 1,150 ml @ 125 mls/hr 1X ONCE 07/30/16 17:30 07/31/16 02:41 DC 07/30/16 18:34 125 MLS/HR Sodium Bicarbonate 50 meq 50 meq 1X ONCE 07/30/16 22:30 07/30/16 22:31 DC 07/30/16 22:15 50 MEQ Sodium Bicarbonate/ Dextrose 1,150 ml @ 125 mls/hr Q9H12M 07/31/16 03:00 08/01/16 13:19 DC 08/01/16 09:30 125 MLS/HR Sodium Bicarbonate 50 meq 1X ONCE 07/30/16 14:30 07/30/16 14:31 DC 07/30/16 14:43 50 MEQ Sodium Chloride (Iv Sodium Chloride 0.9% 500ml Bag) 500 ml @ 500 mls/hr 1X ONCE 07/15/16 22:00 07/15/16 22:59 DC 07/15/16 22:00 500 MLS/HR Sodium Chloride (Iv Sodium Chloride 0.9% 1000ml Bag) 1,000 ml @ 400 mls/hr Q2H30M PRN 08/03/16 07:26 08/03/16 19:25 DC Sodium Chloride (Normal Saline Flush) 10 ml 1X PRN PRN 08/03/16 07:30 08/04/16 07:29 DC Sodium Chloride 10 ml 10 ml 1X PRN PRN 08/03/16 07:30 08/04/16 07:29 DC Sodium Chloride 160 meq/Sodium Acetate 60 meq/ Potassium Chloride 15 meq/ Potassium Acetate 30 meq/Magnesium Sulfate 25 meq/ Multivitamins/ Minerals 10 ml/ Chromium/Copper/ Manganese/Seleni/ Zn 1 ml/Total Parenteral Nutrition/Amino Acids/Dextrose/ Fat Emulsion Intravenous 1,500 ml @ 62.5 mls/hr TPN CONT 08/03/16 22:00 08/04/16 21:59 08/03/16 22:52 62.5 MLS/HR Sodium Chloride 220 meq/Sodium Acetate 90 meq/ Potassium Chloride 15 meq/ Potassium Acetate 30 meq/Magnesium Sulfate 45 meq/ Multivitamins/ Minerals 10 ml/ Chromium/Copper/ Manganese/Seleni/ Zn 1 ml/Total Parenteral Nutrition/Amino Acids/Dextrose/ Fat Emulsion Intravenous 1,920 ml @ 80 mls/hr TPN CONT 08/02/16 22:00 08/03/16 21:59 DC 08/02/16 21:34 80 MLS/HR Sodium Chloride 220 meq/Sodium Acetate 90 meq/ Potassium Chloride 15 meq/ Potassium Acetate 30 meq/Potassium Phosphate 10 mmol/ Magnesium Sulfate 45 meq/ Multivitamins/ Minerals 10 ml/ Chromium/Copper/ Manganese/Seleni/ Zn 1 ml/Total Parenteral Nutrition/Amino Acids/Dextrose/ Fat Emuls... 1,920 ml @ 80 mls/hr TPN CONT 08/01/16 22:00 08/02/16 21:59 DC 08/01/16 21:56 80 MLS/HR Sodium Chloride 220 meq/Sodium Acetate 90 meq/ Potassium Chloride 30 meq/ Potassium Acetate 15 meq/Potassium Phosphate 10 mmol/ Magnesium Sulfate 45 meq/ Multivitamins/ Minerals 10 ml/ Chromium/Copper/ Manganese/Seleni/ Zn 1 ml/Total Parenteral Nutrition/Amino Acids/Dextrose/ Fat Emuls... 1,920 ml @ 80 mls/hr TPN CONT 07/28/16 22:00 07/29/16 21:59 DC 07/28/16 21:43 80 MLS/HR Sodium Chloride 220 meq/Sodium Acetate 90 meq/ Potassium Chloride 50 meq/ Potassium Acetate 15 meq/Potassium Phosphate 10 mmol/ Magnesium Sulfate 50 meq/Calcium Gluconate 3 meq/ Multivitamins/ Minerals 10 ml/ Chromium/Copper/ Manganese/Seleni/ Zn 1 ml/Total Parenteral Nutrition/Amino Acids/Dextro... 1,920 ml @ 80 mls/hr TPN CONT 07/18/16 22:00 07/19/16 21:59 DC 07/19/16 00:03 80 MLS/HR Sodium Chloride/ Sodium Acetate/ Potassium Chloride/ Potassium Acetate/ Potassium Phosphate/ Magnesium Sulfate/ Calcium Gluconate/ Multivitamins/ Minerals/Chromium/ Copper/Manganese/ Seleni/Zn/Total Parenteral Nutrition/Amino Acids/Dextrose/ Fat Emulsion Intravenous (Sodium Chlori... 1,920 ml @ 80 mls/hr TPN CONT 07/20/16 22:00 07/21/16 21:59 DC 07/20/16 21:30 80 MLS/HR Sodium Chloride/ Sodium Acetate/ Potassium Chloride/ Potassium Acetate/ Potassium Phosphate/ Magnesium Sulfate/ Multivitamins/ Minerals/Chromium/ Copper/Manganese/ Seleni/Zn/Total Parenteral Nutrition/Amino Acids/Dextrose/ Fat Emulsion Intravenous (Sodium Chloride/ Potass... 1,920 ml @ 80 mls/hr TPN CONT 07/29/16 22:00 07/30/16 21:59 DC 07/29/16 22:06 80 MLS/HR Succinylcholine Chloride 200 mg 200 mg STK-MED ONCE 07/30/16 20:00 07/31/16 08:16 DC Tigecycline 50 mg/ Sodium Chloride 50 ml @ 100 mls/hr Q12HR 07/31/16 21:00 08/04/16 10:00 DC 08/04/16 09:01 100 MLS/HR Tigecycline/ Sodium Chloride (Tygacil/Iv Sodium Chloride 0.9% 100ml) 100 ml @ 200 mls/hr 1X ONCE 07/31/16 09:00 07/31/16 09:29 DC 07/31/16 09:22 200 MLS/HR Tigecycline/ Sodium Chloride (Tygacil/Iv Sodium Chloride 0.9% 50ml) 50 ml @ 100 mls/hr Q12HR 08/04/16 21:00 Zinc Oxide 1 nallely BID 07/17/16 09:30 08/04/16 08:53 1 NALLELY Zolpidem Tartrate 5 mg 5 mg PRN QHS PRN 07/16/16 08:45 07/31/16 15:01 DC 07/26/16 23:14 5 MG Lab Laboratory Tests Test 08/03/16 12:51 08/03/16 17:25 08/04/16 00:51 08/04/16 06:13 Glucose (Fingerstick) 134mg/dL (70-99) 151mg/dL (70-99) 162mg/dL (70-99) White Blood Count 7.6x10^3/uL (4.0-11.0) Red Blood Count 2.93x10^6/uL (3.50-5.40) Hemoglobin 7.6g/dL (12.0-15.5) Hematocrit 23.4% (36.0-47.0) Mean Corpuscular Volume 80fL (79-100) Mean Corpuscular Hemoglobin 26pg (25-35) Mean Corpuscular Hemoglobin Concent 33g/dL (31-37) Red Cell Distribution Width 19.9% (11.5-14.5) Platelet Count 43x10^3/uL (140-400) Neutrophils (%) (Auto) 81% (31-73) Lymphocytes (%) (Auto) 12% (24-48) Monocytes (%) (Auto) 7% (0-9) Eosinophils (%) (Auto) 0% (0-3) Basophils (%) (Auto) 0% (0-3) Neutrophils # (Auto) 6.2x10^3uL (1.8-7.7) Lymphocytes # (Auto) 0.9x10^3/uL (1.0-4.8) Monocytes # (Auto) 0.5x10^3/uL (0.0-1.1) Eosinophils # (Auto) 0.0x10^3/uL (0.0-0.7) Basophils # (Auto) 0.0x10^3/uL (0.0-0.2) Reticulocyte Count (auto) 0.3% (0.5-2.5) Prothrombin Time 28.7SEC (11.7-14.0) Prothromb Time International Ratio 2.9 (0.8-1.1) Fibrinogen < 60mg/dL (200-440) Sodium Level 147mmol/L (136-145) Potassium Level 3.6mmol/L (3.5-5.1) Chloride Level 108mmol/L (98-107) Carbon Dioxide Level 27mmol/L (21-32) Anion Gap 12 (6-14) Blood Urea Nitrogen 82mg/dL (7-20) Creatinine 1.9mg/dL (0.6-1.0) Estimated GFR (Cockcroft-Gault) 32.5 BUN/Creatinine Ratio 43 (6-20) Glucose Level 220mg/dL (70-99) Calcium Level 8.0mg/dL (8.5-10.1) Phosphorus Level 5.0mg/dL (2.6-4.7) Magnesium Level 3.4mg/dL (1.8-2.4) Total Bilirubin 5.5mg/dL (0.2-1.0) Aspartate Amino Transf (AST/SGOT) 31U/L (15-37) Alanine Aminotransferase (ALT/SGPT) 25U/L (14-59) Alkaline Phosphatase 114U/L (46-116) Lactate Dehydrogenase 360U/L (81-234) Total Protein 5.8g/dL (6.4-8.2) Albumin 2.5g/dL (3.4-5.0) Albumin/Globulin Ratio 0.8 (1.0-1.7) Test 08/04/16 06:21 08/04/16 07:11 08/04/16 11:03 Glucose (Fingerstick) 214mg/dL (70-99) 161mg/dL (70-99) O2 Saturation 99% (92-99) Arterial Blood pH 7.48 (7.35-7.45) Arterial Blood pH (Temp corrected) 7.48 Arterial Blood pCO2 at Patient Temp 35mmHg (35-46) Arterial Blood pCO2 (Temp correct) 34mmHg Arterial Blood pO2 at Patient Temp 240mmHg (65-108) Arterial Blood pO2 (Temp corrected) 239mmHg Arterial Blood HCO3 25mmol/L (21-28) Arterial Blood Base Excess 2mmol/L (-3-3) FiO2 50 LATOSHA TATUM MD Aug 04, 2016 11:23
--- NOTE | 2016-08-04 11:34 | PDOC ---
PULMONARY PROGRESS NOTES Subjective ON AC MODE SEDATED OFF LEVO Vitals Vital Signs Date Time Temp Pulse Resp B/P Pulse Ox O2 Delivery O2 Flow Rate FiO2 08/04/16 10:03 98.7 94 24 133/61 100 Ventilator 98.7 08/04/16 03:55 50.0 HEENT: Other (nc at perrl, nose clear, orally intuvated. ) Lungs: Other (decrease bs) Cardiovascular: S1, S2 Abdomen: Soft, Non-tender, Other Skin: Warm Labs Laboratory Tests Test 08/02/16 17:46 08/03/16 00:01 08/03/16 06:15 08/03/16 06:24 Glucose (Fingerstick) 197mg/dL (70-99) 126mg/dL (70-99) 172mg/dL (70-99) White Blood Count 14.1x10^3/uL (4.0-11.0) Red Blood Count 3.54x10^6/uL (3.50-5.40) Hemoglobin 9.0g/dL (12.0-15.5) Hematocrit 28.1% (36.0-47.0) Mean Corpuscular Volume 79fL (79-100) Mean Corpuscular Hemoglobin 25pg (25-35) Mean Corpuscular Hemoglobin Concent 32g/dL (31-37) Red Cell Distribution Width 19.9% (11.5-14.5) Platelet Count 58x10^3/uL (140-400) Neutrophils (%) (Auto) 83% (31-73) Lymphocytes (%) (Auto) 11% (24-48) Monocytes (%) (Auto) 6% (0-9) Eosinophils (%) (Auto) 0% (0-3) Basophils (%) (Auto) 0% (0-3) Neutrophils # (Auto) 11.7x10^3uL (1.8-7.7) Lymphocytes # (Auto) 1.5x10^3/uL (1.0-4.8) Monocytes # (Auto) 0.8x10^3/uL (0.0-1.1) Eosinophils # (Auto) 0.0x10^3/uL (0.0-0.7) Basophils # (Auto) 0.1x10^3/uL (0.0-0.2) Sodium Level 150mmol/L (136-145) Potassium Level 4.1mmol/L (3.5-5.1) Chloride Level 109mmol/L (98-107) Carbon Dioxide Level 30mmol/L (21-32) Anion Gap 11 (6-14) Blood Urea Nitrogen 74mg/dL (7-20) Creatinine 2.2mg/dL (0.6-1.0) Estimated GFR (Cockcroft-Gault) 27.5 Glucose Level 184mg/dL (70-99) Calcium Level 8.0mg/dL (8.5-10.1) Phosphorus Level 5.7mg/dL (2.6-4.7) Magnesium Level 3.5mg/dL (1.8-2.4) Indirect Platelet Antibody (LAB) See separate report Test 08/03/16 08:15 08/03/16 08:40 08/03/16 12:51 08/03/16 17:25 Prothrombin Time 21.2SEC (11.7-14.0) Prothromb Time International Ratio 2.0 (0.8-1.1) Fibrinogen < 60mg/dL (200-440) Lactic Acid Level 2.9mmol/L (0.4-2.0) O2 Saturation 98% (92-99) Arterial Blood pH 7.46 (7.35-7.45) Arterial Blood pCO2 at Patient Temp 36mmHg (35-46) Arterial Blood pO2 at Patient Temp 137mmHg (65-108) Arterial Blood HCO3 25mmol/L (21-28) Arterial Blood Base Excess 1mmol/L (-3-3) FiO2 50 Glucose (Fingerstick) 134mg/dL (70-99) 151mg/dL (70-99) Test 08/04/16 00:51 08/04/16 06:13 08/04/16 06:21 08/04/16 07:11 Glucose (Fingerstick) 162mg/dL (70-99) 214mg/dL (70-99) White Blood Count 7.6x10^3/uL (4.0-11.0) Red Blood Count 2.93x10^6/uL (3.50-5.40) Hemoglobin 7.6g/dL (12.0-15.5) Hematocrit 23.4% (36.0-47.0) Mean Corpuscular Volume 80fL (79-100) Mean Corpuscular Hemoglobin 26pg (25-35) Mean Corpuscular Hemoglobin Concent 33g/dL (31-37) Red Cell Distribution Width 19.9% (11.5-14.5) Platelet Count 43x10^3/uL (140-400) Neutrophils (%) (Auto) 81% (31-73) Lymphocytes (%) (Auto) 12% (24-48) Monocytes (%) (Auto) 7% (0-9) Eosinophils (%) (Auto) 0% (0-3) Basophils (%) (Auto) 0% (0-3) Neutrophils # (Auto) 6.2x10^3uL (1.8-7.7) Lymphocytes # (Auto) 0.9x10^3/uL (1.0-4.8) Monocytes # (Auto) 0.5x10^3/uL (0.0-1.1) Eosinophils # (Auto) 0.0x10^3/uL (0.0-0.7) Basophils # (Auto) 0.0x10^3/uL (0.0-0.2) Reticulocyte Count (auto) 0.3% (0.5-2.5) Prothrombin Time 28.7SEC (11.7-14.0) Prothromb Time International Ratio 2.9 (0.8-1.1) Fibrinogen < 60mg/dL (200-440) Sodium Level 147mmol/L (136-145) Potassium Level 3.6mmol/L (3.5-5.1) Chloride Level 108mmol/L (98-107) Carbon Dioxide Level 27mmol/L (21-32) Anion Gap 12 (6-14) Blood Urea Nitrogen 82mg/dL (7-20) Creatinine 1.9mg/dL (0.6-1.0) Estimated GFR (Cockcroft-Gault) 32.5 BUN/Creatinine Ratio 43 (6-20) Glucose Level 220mg/dL (70-99) Calcium Level 8.0mg/dL (8.5-10.1) Phosphorus Level 5.0mg/dL (2.6-4.7) Magnesium Level 3.4mg/dL (1.8-2.4) Total Bilirubin 5.5mg/dL (0.2-1.0) Aspartate Amino Transf (AST/SGOT) 31U/L (15-37) Alanine Aminotransferase (ALT/SGPT) 25U/L (14-59) Alkaline Phosphatase 114U/L (46-116) Lactate Dehydrogenase 360U/L (81-234) Total Protein 5.8g/dL (6.4-8.2) Albumin 2.5g/dL (3.4-5.0) Albumin/Globulin Ratio 0.8 (1.0-1.7) O2 Saturation 99% (92-99) Arterial Blood pH 7.48 (7.35-7.45) Arterial Blood pH (Temp corrected) 7.48 Arterial Blood pCO2 at Patient Temp 35mmHg (35-46) Arterial Blood pCO2 (Temp correct) 34mmHg Arterial Blood pO2 at Patient Temp 240mmHg (65-108) Arterial Blood pO2 (Temp corrected) 239mmHg Arterial Blood HCO3 25mmol/L (21-28) Arterial Blood Base Excess 2mmol/L (-3-3) FiO2 50 Test 08/04/16 11:03 Glucose (Fingerstick) 161mg/dL (70-99) Laboratory Tests Test 08/03/16 12:51 08/03/16 17:25 08/04/16 00:51 08/04/16 06:13 Glucose (Fingerstick) 134mg/dL (70-99) 151mg/dL (70-99) 162mg/dL (70-99) White Blood Count 7.6x10^3/uL (4.0-11.0) Red Blood Count 2.93x10^6/uL (3.50-5.40) Hemoglobin 7.6g/dL (12.0-15.5) Hematocrit 23.4% (36.0-47.0) Mean Corpuscular Volume 80fL (79-100) Mean Corpuscular Hemoglobin 26pg (25-35) Mean Corpuscular Hemoglobin Concent 33g/dL (31-37) Red Cell Distribution Width 19.9% (11.5-14.5) Platelet Count 43x10^3/uL (140-400) Neutrophils (%) (Auto) 81% (31-73) Lymphocytes (%) (Auto) 12% (24-48) Monocytes (%) (Auto) 7% (0-9) Eosinophils (%) (Auto) 0% (0-3) Basophils (%) (Auto) 0% (0-3) Neutrophils # (Auto) 6.2x10^3uL (1.8-7.7) Lymphocytes # (Auto) 0.9x10^3/uL (1.0-4.8) Monocytes # (Auto) 0.5x10^3/uL (0.0-1.1) Eosinophils # (Auto) 0.0x10^3/uL (0.0-0.7) Basophils # (Auto) 0.0x10^3/uL (0.0-0.2) Reticulocyte Count (auto) 0.3% (0.5-2.5) Prothrombin Time 28.7SEC (11.7-14.0) Prothromb Time International Ratio 2.9 (0.8-1.1) Fibrinogen < 60mg/dL (200-440) Sodium Level 147mmol/L (136-145) Potassium Level 3.6mmol/L (3.5-5.1) Chloride Level 108mmol/L (98-107) Carbon Dioxide Level 27mmol/L (21-32) Anion Gap 12 (6-14) Blood Urea Nitrogen 82mg/dL (7-20) Creatinine 1.9mg/dL (0.6-1.0) Estimated GFR (Cockcroft-Gault) 32.5 BUN/Creatinine Ratio 43 (6-20) Glucose Level 220mg/dL (70-99) Calcium Level 8.0mg/dL (8.5-10.1) Phosphorus Level 5.0mg/dL (2.6-4.7) Magnesium Level 3.4mg/dL (1.8-2.4) Total Bilirubin 5.5mg/dL (0.2-1.0) Aspartate Amino Transf (AST/SGOT) 31U/L (15-37) Alanine Aminotransferase (ALT/SGPT) 25U/L (14-59) Alkaline Phosphatase 114U/L (46-116) Lactate Dehydrogenase 360U/L (81-234) Total Protein 5.8g/dL (6.4-8.2) Albumin 2.5g/dL (3.4-5.0) Albumin/Globulin Ratio 0.8 (1.0-1.7) Test 08/04/16 06:21 08/04/16 07:11 08/04/16 11:03 Glucose (Fingerstick) 214mg/dL (70-99) 161mg/dL (70-99) O2 Saturation 99% (92-99) Arterial Blood pH 7.48 (7.35-7.45) Arterial Blood pH (Temp corrected) 7.48 Arterial Blood pCO2 at Patient Temp 35mmHg (35-46) Arterial Blood pCO2 (Temp correct) 34mmHg Arterial Blood pO2 at Patient Temp 240mmHg (65-108) Arterial Blood pO2 (Temp corrected) 239mmHg Arterial Blood HCO3 25mmol/L (21-28) Arterial Blood Base Excess 2mmol/L (-3-3) FiO2 50 Medications Active Scripts Medications Dose Route/Sig Days Date Category Dilaudid (Hydromorphone Hcl) 4 Mg Tablet 4 Mg PO Q6HRS 06/29/16 Rx Phenazopyridine Hcl 200 Mg Tablet 200 Mg PO PRN TID PRN 06/29/16 Rx FENTANYL 50mcg/hr (Fentanyl) 1 Each Patch.td72 1 Patch TD Q3DAYS 06/29/16 Rx Anaspaz (Hyoscyamine Sulfate) 0.125 Mg Tab.rapdis 0.125 Mg PO Q6HRS PRN 06/29/16 Rx Cefpodoxime Proxetil 200 Mg Tablet 200 Mg PO BID 06/29/16 Rx Sertraline Hcl 50 Mg Tablet 100 Mg PO DAILY 30 05/12/16 Rx Protonix (Pantoprazole Sodium) 40 Mg Tablet.dr 1 Tab PO DAILY 12/27/15 Rx Zinc Oxide 56.7 Gm Oint...g. 1 Sang TP BID 12/18/15 Rx Lidocaine 35.44 Gm Oint...g. 1 Sang TP BID 12/18/15 Rx Ondansetron Odt (Ondansetron) 4 Mg Tab.rapdis 8 Mg PO PRN Q8HRS PRN 07/03/15 Rx Gas-X (Simethicone) 80 Mg Tab.chew 80 Mg PO PRN QID PRN 09/30/14 Rx Lorazepam 0.5 Mg Tablet 0.5 Mg PO PRN BID PRN 11/08/13 Reported Comments [facility] INFIL IMPROVED Impression . 1. Acute respiratory failure, multifactorial. 2. Septic shock. off pressors 3. Bilateral pulmonary infiltrates compatible with pulmonary edema, possible pneumonia. improved 4. Fungemia. 5. Chronic enterocutaneous fistula. 6. Metabolic toxic encephalopathy. 7. Acute renal failure. 8. [id number] protein malnutrition, present upon admission. 9. Metabolic acidosis. 10.Thrombocytopenia, sepsis induced Plan . AC mode, wean FIO2/PEEP abx per ID solucortef, with taper bronchodilator monitor Plt cont abx, antifungal protonix, scds for prophylaxis decrease sedation pressors to keep map 65 d/c Art line once awake ,consider CPAP trial prognosis ROSAMARIA Talamantes MD Aug 04, 2016 11:34
[2016-08-04] MEDS ORDERED: IV NORMAL SALINE 1000ML BAG 1,000 ML IV PRN ×2 (12:00)
--- NOTE | 2016-08-04 13:39 | PDOC ---
PROGRESS NOTES Assessment Assessment Metabolic encephalopathy. Respiratory failure. Fever Abdominal pain. Septicemia. Metabolic acidosis. Pulmonary edema. Pulmonary infiltrate likely Acute renal failure on dialysis Chronic vesicoenteric fistula Abdominal wounds. Diverticulitis. Cervical cancer. Hypoalbuminemia UTI HTN RECOMMENDATIONS/PLAN: Continue medical and surgical treatment. Repeat HCT w/o contrast if MS worse or has focalized neurological deficits. OT/PT. SUBJECTIVE: Unresponsiveness. OBJECTIVE: Unresponsiveness. PAST MEDICAL AND SURGICAL HISTORY: Please see H&P MEDICATIONS: Refer to MAR REVIEW OF SYSTEMS: Constitutional: No malnutrition, weight loss, cachexia. Head: No recent traumatic brain or head injury. Skin: No edema, or rash. Ear: No infection, tinnitus. Eyes: No vision loss, or diplopia. Nose: No bleeding or purulent discharges. Hearing: No hearing decrease. Neck: No injury. Cardiac: HTN Pulmonary: No COPD. GI: See above. Urinary/genital: UTI. Endocrine: No cousin face, craniofacial dysmorphism, polydactyly. Skeletomuscular: generalized weakness. Neurological: see HP. Psychiatric: Denies drug use/abuse. Otherwise, not [id number] review of systems. PHYSICAL EXAMINATION: General appearance in subacute distress. HEENT: Normocephalic and nontraumatic. Eyes, nose, ears, and throat are unremarkable. Hearing decrease. Neck is supple. No lymphadenopathy. No Crepitus. Cardiovascular: S1, S2, regular rate and rhythm. Pulmonary: On vent Abdomen: Wounds noted Extremities: Edema in hands and LE. NEUROLOGICAL EXAMINATION: On vent. Unresponsive. Not oriented to time, place and person. PERRL. EOMI not elicited. CN: no focal findings. Muscle tone: decreased Muscle strength: no movements observed. DTR: 0-1 Plantar reflex: No response bilaterally Gait: Unable to walk. Sensory exam: no response to stimuli. Not able to access cerebellar signs. Objective Objective Vital Signs Date Time Temp Pulse Resp B/P Pulse Ox O2 Delivery O2 Flow Rate FiO2 08/04/16 13:00 97 20 126/74 99 Ventilator 08/04/16 10:03 98.7 98.7 08/04/16 03:55 50.0 Intake and Output 08/04/16 07:00 Intake Total 927 ml Output Total 510 ml Balance 417 ml IV Total 927 ml Output Urine Total 510 ml Vitals Signs Vitals VS - Last 72 Hours, by Label Date Time Temp Pulse Resp B/P Pulse Ox O2 Delivery O2 Flow Rate FiO2 08/04/16 13:00 97 20 126/74 99 Ventilator 08/04/16 12:00 93 20 99/51 100 Ventilator 08/04/16 12:00 126/59 08/04/16 12:00 Mechanical Ventilator 08/04/16 11:25 100 Ventilator 08/04/16 11:00 94 24 129/57 100 Ventilator 08/04/16 10:03 98.7 94 24 133/61 100 Ventilator 98.7 08/04/16 09:10 100 Ventilator 08/04/16 09:00 92 24 121/55 100 Ventilator 08/04/16 08:00 91 118/49 08/04/16 08:00 91 25 118/49 100 Ventilator 08/04/16 08:00 Mechanical Ventilator 08/04/16 07:11 100 Ventilator 08/04/16 07:00 98.3 94 25 134/54 100 Ventilator 98.3 08/04/16 06:07 92 20 123/47 100 Ventilator 08/04/16 05:23 100 Ventilator 08/04/16 05:00 91 20 119/46 100 Ventilator 08/04/16 04:00 96.8 92 20 133/56 100 Ventilator 96.8 08/04/16 03:55 Mechanical Ventilator 50.0 08/04/16 03:25 100 Ventilator 08/04/16 03:17 87 20 108/50 100 Ventilator 08/04/16 02:13 88 20 102/48 99 Ventilator 08/04/16 01:15 100 Ventilator 08/04/16 01:00 88 20 102/48 99 Ventilator 08/04/16 00:00 97.0 94 20 106/48 99 Ventilator 97.0 08/03/16 23:50 Mechanical Ventilator 50.0 08/03/16 23:20 100 Ventilator 08/03/16 23:00 106 20 106/46 99 Ventilator 08/03/16 22:00 90 20 116/54 99 Ventilator 08/03/16 21:35 100 Ventilator 08/03/16 21:00 90 20 114/52 99 Ventilator 08/03/16 20:04 99 Ventilator 08/03/16 20:00 95 20 106/50 99 Ventilator 08/03/16 19:45 Mechanical Ventilator 50.0 08/03/16 19:00 97.7 94 22 116/54 99 Ventilator 97.7 2/20/17 18:00 96 24 122/58 100 Ventilator 08/03/16 17:00 98 24 126/58 100 Ventilator 08/03/16 16:23 99 Ventilator 08/03/16 16:00 99.4 96 25 122/56 100 Ventilator 99.4 08/03/16 16:00 96 122/56 08/03/16 16:00 Mechanical Ventilator 08/03/16 15:00 98 24 124/58 100 Ventilator 08/03/16 14:55 100 Ventilator 08/03/16 14:48 Ventilator 08/03/16 14:18 Ventilator 08/03/16 14:00 98.7 94 22 144/68 100 Ventilator 98.7 08/03/16 13:18 08/03/16 13:07 99 Ventilator 08/03/16 13:00 98.7 90 22 138/68 99 Ventilator 98.7 08/03/16 12:00 97.9 86 20 118/58 99 Ventilator 97.9 08/03/16 12:00 Mechanical Ventilator 08/03/16 12:00 86 118/58 08/03/16 11:00 97.7 96 20 100/54 99 Ventilator 97.7 08/03/16 11:00 96 100/54 08/03/16 10:30 98 Ventilator 08/03/16 10:00 96 108/54 08/03/16 10:00 97.7 96 20 108/54 99 Ventilator 97.7 08/03/16 09:00 90 104/52 08/03/16 09:00 97.5 90 20 104/52 99 Ventilator 97.5 08/03/16 08:30 98 Ventilator 08/03/16 08:00 Mechanical Ventilator 08/03/16 08:00 97.5 84 21 110/50 99 Ventilator 97.5 08/03/16 08:00 84 110/50 08/03/16 07:00 96.8 80 20 100/48 99 Ventilator 96.8 08/03/16 07:00 80 100/48 Laboratory Laboratory Laboratory Tests Test 08/03/16 17:25 08/04/16 00:51 08/04/16 06:13 08/04/16 06:21 Glucose (Fingerstick) 151mg/dL (70-99) 162mg/dL (70-99) 214mg/dL (70-99) White Blood Count 7.6x10^3/uL (4.0-11.0) Red Blood Count 2.93x10^6/uL (3.50-5.40) Hemoglobin 7.6g/dL (12.0-15.5) Hematocrit 23.4% (36.0-47.0) Mean Corpuscular Volume 80fL (79-100) Mean Corpuscular Hemoglobin 26pg (25-35) Mean Corpuscular Hemoglobin Concent 33g/dL (31-37) Red Cell Distribution Width 19.9% (11.5-14.5) Platelet Count 43x10^3/uL (140-400) Neutrophils (%) (Auto) 81% (31-73) Lymphocytes (%) (Auto) 12% (24-48) Monocytes (%) (Auto) 7% (0-9) Eosinophils (%) (Auto) 0% (0-3) Basophils (%) (Auto) 0% (0-3) Neutrophils # (Auto) 6.2x10^3uL (1.8-7.7) Lymphocytes # (Auto) 0.9x10^3/uL (1.0-4.8) Monocytes # (Auto) 0.5x10^3/uL (0.0-1.1) Eosinophils # (Auto) 0.0x10^3/uL (0.0-0.7) Basophils # (Auto) 0.0x10^3/uL (0.0-0.2) Reticulocyte Count (auto) 0.3% (0.5-2.5) Prothrombin Time 28.7SEC (11.7-14.0) Prothromb Time International Ratio 2.9 (0.8-1.1) Fibrinogen < 60mg/dL (200-440) Sodium Level 147mmol/L (136-145) Potassium Level 3.6mmol/L (3.5-5.1) Chloride Level 108mmol/L (98-107) Carbon Dioxide Level 27mmol/L (21-32) Anion Gap 12 (6-14) Blood Urea Nitrogen 82mg/dL (7-20) Creatinine 1.9mg/dL (0.6-1.0) Estimated GFR (Cockcroft-Gault) 32.5 BUN/Creatinine Ratio 43 (6-20) Glucose Level 220mg/dL (70-99) Calcium Level 8.0mg/dL (8.5-10.1) Phosphorus Level 5.0mg/dL (2.6-4.7) Magnesium Level 3.4mg/dL (1.8-2.4) Total Bilirubin 5.5mg/dL (0.2-1.0) Aspartate Amino Transf (AST/SGOT) 31U/L (15-37) Alanine Aminotransferase (ALT/SGPT) 25U/L (14-59) Alkaline Phosphatase 114U/L (46-116) Lactate Dehydrogenase 360U/L (81-234) Total Protein 5.8g/dL (6.4-8.2) Albumin 2.5g/dL (3.4-5.0) Albumin/Globulin Ratio 0.8 (1.0-1.7) Test 08/04/16 07:11 08/04/16 11:03 O2 Saturation 99% (92-99) Arterial Blood pH 7.48 (7.35-7.45) Arterial Blood pH (Temp corrected) 7.48 Arterial Blood pCO2 at Patient Temp 35mmHg (35-46) Arterial Blood pCO2 (Temp correct) 34mmHg Arterial Blood pO2 at Patient Temp 240mmHg (65-108) Arterial Blood pO2 (Temp corrected) 239mmHg Arterial Blood HCO3 25mmol/L (21-28) Arterial Blood Base Excess 2mmol/L (-3-3) FiO2 50 Glucose (Fingerstick) 161mg/dL (70-99) Microbiology 08/01/16 Blood Culture - Preliminary, Resulted NO GROWTH AFTER 3 DAYS 07/15/16 Urine Culture - Final, Complete 07/15/16 Urine Culture Result 1 (ROYA) - Final, Complete 07/15/16 Urine Culture Result 2 (ROYA) - Final, Complete 07/15/16 Antimicrobic Susceptibility - Final, Complete 07/29/16 Aerobic Culture - Final, Complete 07/29/16 Aerobic Culture Result 1 (ROYA) - Final, Complete Medication Medications Current Medications Daptomycin 450 mg/ Sodium Chloride 50 ml @ 100 mls/hr ONCE ONCE IV Last administered on 08/04/16t 09:55; Start 08/04/16 at 08:00; Stop 08/04/16 at 08:30 ; Status DC Furosemide/Sodium Chloride (Lasix Drip/Iv Sodium Chloride 0.9% 100ml) 100 ml @ 0 mls/hr CONT PRN IV SEE I/O RECORD; Start 08/04/16 at 11:30 Hydrocortisone Sodium Succinate 50 mg 50 mg Q8HRS IV ; Start 08/04/16 at 14:00 Levofloxacin/ Dextrose 100 ml @ 100 mls/hr 1X ONCE IV Last administered on t 10:50; Start 08/04/16 at 07:30; Stop 08/04/16 at 08:30; Status DC Sodium Chloride 160 meq/Sodium Acetate 60 meq/ Potassium Chloride 15 meq/ Potassium Acetate 30 meq/Magnesium Sulfate 25 meq/ Multivitamins/ Minerals 10 ml / Chromium/Copper/ Manganese/Seleni/ Zn 1 ml/Total Parenteral Nutrition/Amino Acids/Dextrose/ Fat Emulsion Intravenous 1,500 ml @ 62.5 mls/hr TPN CONT IV Last administered on 08/03/16 22:52; Start 08/03/16 at 22:00; Stop 08/04/16 at 21:59 Tigecycline/ Sodium Chloride (Tygacil/Iv Sodium Chloride 0.9% 50ml) 50 ml @ 100 mls/hr Q12HR IV ; Start 08/04/16 at 21:00 Comment Review of Relevant I have reviewed the following items lucila (where applicable) has been applied. JEFFRY JUAREZ MD Aug 04, 2016 13:39
[2016-08-04] MEDS: TPN PER PHARMACY MC PRN (14:00)
[2016-08-04] MEDS: FUROSEMIDE INJ 100 MG in IV NORMAL SALINE 100ML 100 ML IV PRN (15:56)
[2016-08-04] MEDS ORDERED: DIALYSIS PATIENT. MC PRN (16:30)
[2016-08-04] MEDS: TIGECYCLINE IV SCH (20:44)
[2016-08-04] MEDS: NORMAL SALINE IV SCH (20:44)
[2016-08-04] MEDS ORDERED: AMINO ACIDS IV SCH ×10 (22:00)
[2016-08-04] MEDS ORDERED: [UNRECOGNIZED DRUG - OTHER] IV SCH ×10 (22:00)
[2016-08-04] MEDS ORDERED: DEXTROSE 70% IV SCH ×10 (22:00)
[2016-08-04] MEDS ORDERED: TOTAL PARENTERAL NUTRITION IV SCH ×10 (22:00)
[2016-08-05] VITALS (31 sets, daily range): BP systolic 107–166; BP diastolic 43–84
[2016-08-05] MEDS: INSULIN ASPART 300 UNITS/3 ML INSULN.PEN SQ SCH ×5 (00:03→23:52)
[2016-08-05] MEDS: MICAFUNGIN 100 MG in IV DEXTROSE 5% 100 ML IV SCH (01:16)
[2016-08-05] MEDS: FENTANYL STANDARD PCA 30 ML IV PRN ×2 (01:17→21:02)
[2016-08-05] MEDS: FUROSEMIDE INJ 100 MG in IV NORMAL SALINE 100ML 100 ML IV PRN ×2 (01:36→18:56)
--- NOTE | 2016-08-05 02:59 | CONS ---
DATE OF CONSULTATION: 08/04/2016 HEMATOLOGY ONCOLOGY CONSULTATION REQUESTING PHYSICIAN: Dr. Roderick Cisneros. REASON FOR CONSULTATION: Thrombocytopenia and positive platelet antibody. HISTORY OF PRESENT ILLNESS: The patient is a 61-year-old female who has enterocutaneous history and enterovesical fistula, maintained on home TPA via PICC line and she has anemia of chronic disease and she was admitted to [facility] through the Emergency Room on 07/15/2016 with complaints of fever. She also had dyspnea and she had a temperature of [address] scan of the abdomen and pelvis in the ER did not in any acute abnormalities. Urinalysis showed pyuria and she was started on antibiotics for UTI. She subsequently developed sepsis and acute respiratory failure requiring management in the ICU. She is on mechanical ventilation. Infectious Disease has been consulted. She has been diagnosed with Judi glabrata sepsis. There is also evidence of enterobacter and enterococcus in the urine. I was asked to see the patient for thrombocytopenia. Her platelet count on 07/15/2016 was 261. Platelet count remained normal until 07/29/2016 when it was 213 and then on 07/30/2016, it dropped to 107 and on 08/04/2016, it further dropped to 43,000 and hence I was consulted for further evaluation. I discussed the case in detail with the registered nurse and Dr. Roderick Cisneros and with the inpatient pharmacy. The patient received heparin to keep the arterial line open at 2 units per mL on 07/29/2016 when the platelet count was 213,000 and she also received it on 07/30/2016 when the platelet count dropped to 107,000. I also received the verbal report that the antiplatelet antibody is positive. PAST MEDICAL HISTORY: History of E. coli urinary tract infection, influenza type b, enterocutaneous fistula, enterovesical fistula, protein calorie malnutrition, appendectomy, cholecystectomy, tonsillectomy, jejunostomy, hysterectomy, 5 abdominal fistula repairs, all of which have failed, history of depression, diverticulosis, recurrent sepsis. SOCIAL HISTORY: No smoking or alcohol abuse. FAMILY HISTORY: Positive for hypertension, COPD and cancer. REVIEW OF SYSTEMS: A 12-point review of system was performed. Pertinent positives are mentioned in the history of present illness. Rest of the system review is negative. PHYSICAL EXAMINATION: GENERAL APPEARANCE: The patient is a 61-year-old female who is in the ICU on mechanical ventilation and in no acute cardiorespiratory distress. VITAL SIGNS: Blood pressure 118/49 and temperature 98.3. HEAD: Atraumatic, normocephalic. EYES: No icterus. NECK: Supple. CHEST: Bilaterally symmetrical. No crepitations or rhonchi heard. HEART: S1 and S2 normal. ABDOMEN: Soft. No organomegaly. CENTRAL NERVOUS SYSTEM: Unresponsive. PSYCHOLOGIC: Unresponsive. MUSCULOSKELETAL: She has generalized edema. IMPRESSION AND PLAN: 1. Thrombocytopenia secondary to sepsis. In addition, there is evidence of elevated PT, PTT and decreased fibrinogen which is suggestive of disseminated intravascular coagulation. However, the peripheral smear does not reveal any evidence of fragment or red cells. She may be developing an early disseminated intravascular coagulation. I will repeat fibrinogen levels and continue to monitor closely. If she has any significant bleeding and/or if she needs invasive procedure, then I would recommend cryoprecipitate infusion of at least 5 units. I discussed with Dr. Roderick Cisneros. I also reviewed the case with the inpatient pharmacist. The patient received a small dose of heparin on 07/29/2016 and 07/30/2016 to keep the arterial line open. Her platelet count was 213,000 on 07/29/2016 and it dropped to 107,000 on 07/30/2016. The drop in the platelet count is consistent with sepsis and she is not consistent with heparin-induced thrombocytopenia. The antiplatelet antibodies reported by the community blood bank was positive. However, I do not suspect that this is the cause of thrombocytopenia. 2. Anemia secondary to sepsis, possible disseminated intravascular coagulation, hemoglobin 7.6. Continue to monitor. 3. Sepsis, Judi glabrata positive. Appreciate ID management. 4. 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 There is no active bleeding and hence I continue to monitor. 5. There is no clinical evidence to suggest thrombotic thrombocytopenic purpura. 6. Respiratory failure. She is on mechanical ventilation. ENMA FINLEY MD DR: BANG/jd JOB#: [id number] / [id number]
[2016-08-05] MEDS: HYDROCORTISONE SOD SUCC/PF 100 MG/2 ML VIAL. IV SCH ×2 (05:39→20:54)
[2016-08-05 06:18] LABS: CALCIUM 8.5 mg/dL (8.5-10.1); CREATININE 1.8 mg/dL (0.6-1.0); GFR 34.6; PHOSPHORUS 5.1 mg/dL (2.6-4.7); POTASSIUM 3.5 mmol/L (3.5-5.1)
[2016-08-05 06:21] LABS: INR 3.9 (0.8-1.1)
[2016-08-05 06:42] LABS: BASO % 0 % (0-3); EOS % 0 % (0-3); HEMATOCRIT 23.8 % (36.0-47.0); HEMOGLOBIN 7.7 g/dL (12.0-15.5); LYMPH # 0.8 x10^3/uL (1.0-4.8); LYMPH % 10 % (24-48); MEAN CORPUSCULAR HEMOGLOBIN 26 pg (25-35); MEAN CORPUSCULAR HGB CONC 32 g/dL (31-37); MEAN CORPUSCULAR VOLUME 79 fL (79-100); MONO % 7 % (0-9); NEUT % 83 % (31-73); PLATELET COUNT 46 x10^3/uL (140-400); RED BLOOD COUNT 3.02 x10^6/uL (3.50-5.40); RED CELL DISTRIBUTION WIDTH 20.2 % (11.5-14.5); WHITE BLOOD COUNT 7.5 x10^3/uL (4.0-11.0)
--- NOTE | 2016-08-05 07:09 | PDOC ---
Infectious Disease Note Subjective Subjective Sedated Intubated. No fever TPN ROS ROS Unobtainable Vital Sign Vital Signs Vital Signs Date Time Temp Pulse Resp B/P Pulse Ox O2 Delivery O2 Flow Rate FiO2 08/05/16 06:00 84 20 126/53 100 Ventilator 08/05/16 04:00 97.8 97.8 Physical Exam PHYSICAL EXAM GENERAL: Intubated and sedated. Under bearhugger HEENT: Pupils constricted. ETT. OGT LUNGS: Clear HEART: S1S2, no gallop, no murmur. Distal DP palpable ABD: Soft, BS present, + fistula : Avila EXT: Generalized edema. AIR DISPATCHER: Alert, oriented x 3, no focal neurologic deficit SKIN: No rash Nontunneled PICC, HDC & femoral swans cath. clean Labs Lab Laboratory Tests Test 08/04/16 07:11 08/04/16 11:03 08/04/16 17:49 08/05/16 00:00 O2 Saturation 99% (92-99) Arterial Blood pH 7.48 (7.35-7.45) Arterial Blood pH (Temp corrected) 7.48 Arterial Blood pCO2 at Patient Temp 35mmHg (35-46) Arterial Blood pCO2 (Temp correct) 34mmHg Arterial Blood pO2 at Patient Temp 240mmHg (65-108) Arterial Blood pO2 (Temp corrected) 239mmHg Arterial Blood HCO3 25mmol/L (21-28) Arterial Blood Base Excess 2mmol/L (-3-3) FiO2 50 Glucose (Fingerstick) 161mg/dL (70-99) 194mg/dL (70-99) 190mg/dL (70-99) Test 08/05/16 05:30 08/05/16 05:32 White Blood Count 7.5x10^3/uL (4.0-11.0) Red Blood Count 3.02x10^6/uL (3.50-5.40) Hemoglobin 7.7g/dL (12.0-15.5) Hematocrit 23.8% (36.0-47.0) Mean Corpuscular Volume 79fL (79-100) Mean Corpuscular Hemoglobin 26pg (25-35) Mean Corpuscular Hemoglobin Concent 32g/dL (31-37) Red Cell Distribution Width 20.2% (11.5-14.5) Platelet Count 46x10^3/uL (140-400) Neutrophils (%) (Auto) 83% (31-73) Lymphocytes (%) (Auto) 10% (24-48) Monocytes (%) (Auto) 7% (0-9) Eosinophils (%) (Auto) 0% (0-3) Basophils (%) (Auto) 0% (0-3) Neutrophils # (Auto) 6.3x10^3uL (1.8-7.7) Lymphocytes # (Auto) 0.8x10^3/uL (1.0-4.8) Monocytes # (Auto) 0.5x10^3/uL (0.0-1.1) Eosinophils # (Auto) 0.0x10^3/uL (0.0-0.7) Basophils # (Auto) 0.0x10^3/uL (0.0-0.2) Prothrombin Time 36.0SEC (11.7-14.0) Prothromb Time International Ratio 3.9 (0.8-1.1) Sodium Level 143mmol/L (136-145) Potassium Level 3.5mmol/L (3.5-5.1) Chloride Level 108mmol/L (98-107) Carbon Dioxide Level 25mmol/L (21-32) Anion Gap 10 (6-14) Blood Urea Nitrogen 79mg/dL (7-20) Creatinine 1.8mg/dL (0.6-1.0) Estimated GFR (Cockcroft-Gault) 34.6 Glucose Level 210mg/dL (70-99) Lactic Acid Level 2.1mmol/L (0.4-2.0) Calcium Level 8.5mg/dL (8.5-10.1) Phosphorus Level 5.1mg/dL (2.6-4.7) Magnesium Level 3.1mg/dL (1.8-2.4) Glucose (Fingerstick) 186mg/dL (70-99) Micro BLOOD CULTURE Preliminary NO GROWTH AFTER 2 DAYS Enterobacter aerogenes 50,000-100,000 colony forming units per mL URINE CULTURE RES 2 Final Enterococcus faecium 50,000-100,000 colony forming units per mL ANTIMICROBIAL SUSCEPTIBILITY Final Comment S = Susceptible; I = Intermediate; R = Resistant P = Positive; N = Negative MICS are expressed in micrograms per mL Antibiotic RSLT#1 RSLT#2 RSLT#3 RSLT#4 Amoxicillin/Clavulanic Acid R Cefazolin R Cefepime R Ceftriaxone R Cefuroxime R Cephalothin R Ciprofloxacin R R Gentamicin S Imipenem R Levofloxacin R R Nitrofurantoin R I Penicillin R Piperacillin R Tetracycline R R Tobramycin S Trimethoprim/Sulfa S Vancomycin S Objective Assessment C Glabrata sepsis - 07/27 - line removed and positive 07/29. OFF Levophed ? DIC with elevated INR - platelets - stable today Acute resp failure - intubated -some infiltrates on hydrocortisone JULIO C - getting HD Fever and chills- better Acute Anemia - s/p PRBCs Urine Enterobacter and Amp res Enterococcus 07/15 EC fistula Enterovesicular fistula Abdominal excoriation MDR Enterobacter and enterococcus faecium in urine Plan Plan of Care Line change hopefully today continue micafungin, Tygacil wean Tygacil Repeat Blood cults 08/01 NGTD Redosed Levofloxacin and Daptomycin 08/04. HD today will redose after HD Will need ECHO Will need Optho eval Monitor labs Critically ill ABBY MOTT MD Aug 05, 2016 07:09
[2016-08-05] MEDS: IPRATRPIUM/ALBUTEROL 0.5/2.5MG 3 ML NEBU. NEB SCH ×4 (07:48→19:57)
[2016-08-05 08:08] LABS: HCO3 ABG 23 mmol/L (21-28); PCO2 ABG 32 mmHg (35-46); PH ABG 7.47 (7.35-7.45); PO2 ABG 199 mmHg (65-108); SAT O2 ABG 99 % (92-99)
[2016-08-05 08:10] LABS: FIO2 ABG 40
--- NOTE | 2016-08-05 08:30 | RAD ---
Portable chest, 08/05/2016: History: Pulmonary infiltrates Comparison is made to yesterday's study. The ET tube, NG tube and right jugular central venous catheter remain in place in satisfactory positions. The heart size and pulmonary vascularity are normal. There is only minimal residual infiltrate in the right. The left chest is essentially clear. No pleural fluid or pneumothorax is seen. No new abnormality is detected. IMPRESSION: 1. Various tubes and catheters are in satisfactory positions. 2. Minimal residual pulmonary infiltrate.
--- NOTE | 2016-08-05 09:13 | PDOC ---
Subjective: Subjective: Onc f/u- DIC, severe sepsis with multiorgan failure Pt sedated, intubated. Per nurse, still with oozing from enterocutaneous fistula. None at ET tube, etc. Objective: Vital Signs: Vital Signs Date Time Temp Pulse Resp B/P Pulse Ox O2 Delivery O2 Flow Rate FiO2 08/05/16 08:30 98.0 85 20 112/53 98.0 08/05/16 07:48 100 Ventilator Physical Exam: Extremities: Other (2+ edema all extremities) General: Other (sedated) Psych/Mental Status: Other (sedated) Skin: Other (no petechaie, bruising) Labs/Imaging: CBC stable Fibrinogen < 60 INr up to 3.9 Assessment/Plan A/P: 1. DIC due to severe sepsis due to fungemia with multiorgan failure - Ordered cryoprecipitate and FFP this AM - Coags, repeat fibrinogen ordered for this PM and again each AM - Please transfuse for hemoglobin < 7, plt < 10, fibrinogen < 100. - With planned HD catheter placement this, FFP ordered now as well. Dr. Soliman will return tomorrow. D/W nurse. JOSH KIRBY DO Aug 05, 2016 09:13
--- NOTE | 2016-08-05 09:29 | PDOC ---
PROGRESS NOTES Subjective Subjective Sedated and intubated. Nursing reports patients status about the same. Continues to have some oozing from fistula. Objective Objective Vital Signs Date Time Temp Pulse Resp B/P Pulse Ox O2 Delivery O2 Flow Rate FiO2 08/05/16 09:19 100 Ventilator 08/05/16 08:30 98.0 85 20 112/53 98.0 08/04/16 03:55 50.0 Intake and Output 08/05/16 07:00 Intake Total 2530.55 ml Output Total 713 ml Balance 1817.55 ml IV Total 2530.55 ml Output Urine Total 713 ml Physical Exam Heart: Regular rate, Normal S1, Normal S2, No murmurs Extremities: Other (moderate peripheral edema) General: Other (sedated) HEENT: Other (some dried blood lips) Lungs: Other (On vent, course lung sounds non focal no rales) Assessment Assessment 61 year old with DIC secondary to sever sepsis and multiorgan failure due to fungemia. Patient is currently sedated and getting mechanical ventilation, pressures are stabilizing with fluids no longer on pressor dips. Patient has JULIO C and currently on HD. Edema is likely non cardiogenic in nature as patient had Echo on 07/30 with only mild diastolic dysfunction with normal systolic function and EF of ~69%. Problems Medical Problems: (1) Abdominal pain Status: Acute (2) Enterocutaneous fistula Status: Acute (3) Sepsis Status: Acute (4) Urinary tract infection Status: Acute (5) UTI (urinary tract infection) Status: Acute Plan Plan of Care Agree with current plan of care, will monitor closely. Comment Review of Relevant I have reviewed the following items lucila (where applicable) has been applied. Labs Laboratory Tests Test 08/03/16 12:51 08/03/16 17:25 08/04/16 00:51 08/04/16 06:13 Glucose (Fingerstick) 134mg/dL (70-99) 151mg/dL (70-99) 162mg/dL (70-99) White Blood Count 7.6x10^3/uL (4.0-11.0) Red Blood Count 2.93x10^6/uL (3.50-5.40) Hemoglobin 7.6g/dL (12.0-15.5) Hematocrit 23.4% (36.0-47.0) Mean Corpuscular Volume 80fL (79-100) Mean Corpuscular Hemoglobin 26pg (25-35) Mean Corpuscular Hemoglobin Concent 33g/dL (31-37) Red Cell Distribution Width 19.9% (11.5-14.5) Platelet Count 43x10^3/uL (140-400) Neutrophils (%) (Auto) 81% (31-73) Lymphocytes (%) (Auto) 12% (24-48) Monocytes (%) (Auto) 7% (0-9) Eosinophils (%) (Auto) 0% (0-3) Basophils (%) (Auto) 0% (0-3) Neutrophils # (Auto) 6.2x10^3uL (1.8-7.7) Lymphocytes # (Auto) 0.9x10^3/uL (1.0-4.8) Monocytes # (Auto) 0.5x10^3/uL (0.0-1.1) Eosinophils # (Auto) 0.0x10^3/uL (0.0-0.7) Basophils # (Auto) 0.0x10^3/uL (0.0-0.2) Reticulocyte Count (auto) 0.3% (0.5-2.5) Haptoglobin 113mg/dL (34-200) Prothrombin Time 28.7SEC (11.7-14.0) Prothromb Time International Ratio 2.9 (0.8-1.1) Fibrinogen < 60mg/dL (200-440) Sodium Level 147mmol/L (136-145) Potassium Level 3.6mmol/L (3.5-5.1) Chloride Level 108mmol/L (98-107) Carbon Dioxide Level 27mmol/L (21-32) Anion Gap 12 (6-14) Blood Urea Nitrogen 82mg/dL (7-20) Creatinine 1.9mg/dL (0.6-1.0) Estimated GFR (Cockcroft-Gault) 32.5 BUN/Creatinine Ratio 43 (6-20) Glucose Level 220mg/dL (70-99) Calcium Level 8.0mg/dL (8.5-10.1) Phosphorus Level 5.0mg/dL (2.6-4.7) Magnesium Level 3.4mg/dL (1.8-2.4) Total Bilirubin 5.5mg/dL (0.2-1.0) Aspartate Amino Transf (AST/SGOT) 31U/L (15-37) Alanine Aminotransferase (ALT/SGPT) 25U/L (14-59) Alkaline Phosphatase 114U/L (46-116) Lactate Dehydrogenase 360U/L (81-234) Total Protein 5.8g/dL (6.4-8.2) Albumin 2.5g/dL (3.4-5.0) Albumin/Globulin Ratio 0.8 (1.0-1.7) Test 08/04/16 06:21 08/04/16 07:11 08/04/16 11:03 08/04/16 17:49 Glucose (Fingerstick) 214mg/dL (70-99) 161mg/dL (70-99) 194mg/dL (70-99) O2 Saturation 99% (92-99) Arterial Blood pH 7.48 (7.35-7.45) Arterial Blood pH (Temp corrected) 7.48 Arterial Blood pCO2 at Patient Temp 35mmHg (35-46) Arterial Blood pCO2 (Temp correct) 34mmHg Arterial Blood pO2 at Patient Temp 240mmHg (65-108) Arterial Blood pO2 (Temp corrected) 239mmHg Arterial Blood HCO3 25mmol/L (21-28) Arterial Blood Base Excess 2mmol/L (-3-3) FiO2 50 Test 08/05/16 00:00 08/05/16 05:30 08/05/16 05:32 08/05/16 08:00 Glucose (Fingerstick) 190mg/dL (70-99) 186mg/dL (70-99) White Blood Count 7.5x10^3/uL (4.0-11.0) Red Blood Count 3.02x10^6/uL (3.50-5.40) Hemoglobin 7.7g/dL (12.0-15.5) Hematocrit 23.8% (36.0-47.0) Mean Corpuscular Volume 79fL (79-100) Mean Corpuscular Hemoglobin 26pg (25-35) Mean Corpuscular Hemoglobin Concent 32g/dL (31-37) Red Cell Distribution Width 20.2% (11.5-14.5) Platelet Count 46x10^3/uL (140-400) Neutrophils (%) (Auto) 83% (31-73) Lymphocytes (%) (Auto) 10% (24-48) Monocytes (%) (Auto) 7% (0-9) Eosinophils (%) (Auto) 0% (0-3) Basophils (%) (Auto) 0% (0-3) Neutrophils # (Auto) 6.3x10^3uL (1.8-7.7) Lymphocytes # (Auto) 0.8x10^3/uL (1.0-4.8) Monocytes # (Auto) 0.5x10^3/uL (0.0-1.1) Eosinophils # (Auto) 0.0x10^3/uL (0.0-0.7) Basophils # (Auto) 0.0x10^3/uL (0.0-0.2) Prothrombin Time 36.0SEC (11.7-14.0) Prothromb Time International Ratio 3.9 (0.8-1.1) Fibrinogen < 60mg/dL (200-440) Sodium Level 143mmol/L (136-145) Potassium Level 3.5mmol/L (3.5-5.1) Chloride Level 108mmol/L (98-107) Carbon Dioxide Level 25mmol/L (21-32) Anion Gap 10 (6-14) Blood Urea Nitrogen 79mg/dL (7-20) Creatinine 1.8mg/dL (0.6-1.0) Estimated GFR (Cockcroft-Gault) 34.6 Glucose Level 210mg/dL (70-99) Lactic Acid Level 2.1mmol/L (0.4-2.0) Calcium Level 8.5mg/dL (8.5-10.1) Phosphorus Level 5.1mg/dL (2.6-4.7) Magnesium Level 3.1mg/dL (1.8-2.4) O2 Saturation 99% (92-99) Arterial Blood pH 7.47 (7.35-7.45) Arterial Blood pCO2 at Patient Temp 32mmHg (35-46) Arterial Blood pO2 at Patient Temp 199mmHg (65-108) Arterial Blood HCO3 23mmol/L (21-28) Arterial Blood Base Excess -1mmol/L (-3-3) FiO2 40 Laboratory Tests Test 08/04/16 11:03 08/04/16 17:49 08/05/16 00:00 08/05/16 05:30 Glucose (Fingerstick) 161mg/dL (70-99) 194mg/dL (70-99) 190mg/dL (70-99) White Blood Count 7.5x10^3/uL (4.0-11.0) Red Blood Count 3.02x10^6/uL (3.50-5.40) Hemoglobin 7.7g/dL (12.0-15.5) Hematocrit 23.8% (36.0-47.0) Mean Corpuscular Volume 79fL (79-100) Mean Corpuscular Hemoglobin 26pg (25-35) Mean Corpuscular Hemoglobin Concent 32g/dL (31-37) Red Cell Distribution Width 20.2% (11.5-14.5) Platelet Count 46x10^3/uL (140-400) Neutrophils (%) (Auto) 83% (31-73) Lymphocytes (%) (Auto) 10% (24-48) Monocytes (%) (Auto) 7% (0-9) Eosinophils (%) (Auto) 0% (0-3) Basophils (%) (Auto) 0% (0-3) Neutrophils # (Auto) 6.3x10^3uL (1.8-7.7) Lymphocytes # (Auto) 0.8x10^3/uL (1.0-4.8) Monocytes # (Auto) 0.5x10^3/uL (0.0-1.1) Eosinophils # (Auto) 0.0x10^3/uL (0.0-0.7) Basophils # (Auto) 0.0x10^3/uL (0.0-0.2) Prothrombin Time 36.0SEC (11.7-14.0) Prothromb Time International Ratio 3.9 (0.8-1.1) Fibrinogen < 60mg/dL (200-440) Sodium Level 143mmol/L (136-145) Potassium Level 3.5mmol/L (3.5-5.1) Chloride Level 108mmol/L (98-107) Carbon Dioxide Level 25mmol/L (21-32) Anion Gap 10 (6-14) Blood Urea Nitrogen 79mg/dL (7-20) Creatinine 1.8mg/dL (0.6-1.0) Estimated GFR (Cockcroft-Gault) 34.6 Glucose Level 210mg/dL (70-99) Lactic Acid Level 2.1mmol/L (0.4-2.0) Calcium Level 8.5mg/dL (8.5-10.1) Phosphorus Level 5.1mg/dL (2.6-4.7) Magnesium Level 3.1mg/dL (1.8-2.4) Test 08/05/16 05:32 08/05/16 08:00 Glucose (Fingerstick) 186mg/dL (70-99) O2 Saturation 99% (92-99) Arterial Blood pH 7.47 (7.35-7.45) Arterial Blood pCO2 at Patient Temp 32mmHg (35-46) Arterial Blood pO2 at Patient Temp 199mmHg (65-108) Arterial Blood HCO3 23mmol/L (21-28) Arterial Blood Base Excess -1mmol/L (-3-3) FiO2 40 Microbiology 08/01/16 Blood Culture - Preliminary, Resulted NO GROWTH AFTER 4 DAYS 07/15/16 Urine Culture - Final, Complete 07/15/16 Urine Culture Result 1 (ROYA) - Final, Complete 07/15/16 Urine Culture Result 2 (ROYA) - Final, Complete 07/15/16 Antimicrobic Susceptibility - Final, Complete 07/29/16 Aerobic Culture - Final, Complete 07/29/16 Aerobic Culture Result 1 (ROYA) - Final, Complete Medications Current Medications Piperacillin Sod/ Tazobactam Sod/ Sodium Chloride (Zosyn/Iv Sodium Chloride 0.9 % 100ml) 100 ml @ 200 mls/hr 1X ONCE IV Last administered on 07/15/16 22:56; Start 07/15/16 at 22:00; Stop 07/15/16 at 22:29; Status DC Fentanyl Citrate 50 mcg 50 mcg PRN Q15MIN PRN IV PAIN GREATER THAN 3/10 Last administered on 07/16/16 00:30; Start 07/15/16 at 21:45; Stop 07/16/16 at 02:00; Status DC Sodium Chloride 1,000 ml @ 1,000 mls/hr 1X ONCE IV Last administered on 21:59; Start 07/15/16 at 22:00; Stop 07/15/16 at 22:59; Status DC Sodium Chloride (Iv Sodium Chloride 0.9% 500ml Bag) 500 ml @ 500 mls/hr 1X ONCE IV Last administered on 07/15/16 22:00; Start 07/15/16 at 22:00; Stop at 22:59; Status DC Ondansetron HCl (Zofran) 4 mg PRN Q8HRS PRN IV NAUSEA/VOMITING; Start 07/15/16 at 23:30; Stop 07/16/16 at 08:52; Status DC Fentanyl Citrate 50 mcg 50 mcg PRN Q2HR PRN IV SEVERE PAIN Last administered on 07/16/16 08:10; Start 07/15/16 at 23:30; Stop 07/16/16 at 08:52; Status DC Sodium Chloride (Iv Sodium Chloride 0.9% 1000ml Bag) 1,000 ml @ 150 mls/hr Q6H40M IV Last administered on 07/15/16 02:00; Start 07/15/16 at 23:45; Stop 07/16/16 at 08:52; Status DC Acetaminophen (Tylenol) 650 mg PRN Q4HRS PRN PO FEVER; Start 07/15/16 at 23:30; Stop 07/16/16 at 23:29; Status DC Info (Do NOT chart on this placeholder) 1 each PRN DAILY PRN MC NEEDS VERIFICATION; Start 07/16/16 at 03:00; Status Cancel Acetaminophen 650 mg 650 mg PRN Q4HRS PRN PO MILD PAIN / TEMP Last administered on 07/28/16 07:42; Start 07/16/16 at 08:45; Stop 07/29/16 at 08:33 ; Status DC Piperacillin Sod/ Tazobactam Sod 3.375 gm/Sodium Chloride 50 ml @ 100 mls/hr Q6HRS IV Last administered on 07/18/16 05:50; Start 07/16/16 at 10:00; Stop 07/18 at 13:28; Status DC Linezolid (Zyvox Premix) 300 ml @ 300 mls/hr Q12HR IV Last administered on 07/18 08:34; Start 07/16/16 at 10:00; Stop 07/18/16 at 13:28; Status DC Hydromorphone HCl (Dilaudid) 2 mg PRN Q4HRS PRN IV MODERATE PAIN Last administered on 07/28/16 23:33; Start 07/16/16 at 08:45 Hydromorphone HCl (Dilaudid) 4 mg PRN Q4HRS PRN IV SEVERE PAIN Last administered on 07/30/16 09:23; Start 07/16/16 at 08:45; Stop 07/31/16 at 15:01 ; Status DC Pantoprazole Sodium (Protonix) 40 mg DAILYAC PO Last administered on 07/27/16 11:11; Start 07/16/16 at 09:30; Stop 07/29/16 at 08:44; Status DC Hyoscyamine (Anaspaz) 0.125 mg Q6HRS PO Last administered on 07/20/16 05:20; Start 07/16/16 at 12:00; Stop 07/20/16 at 08:58; Status DC Phenazopyridine HCl (Pyridium) 200 mg TID PO Last administered on 07/20/16 08: 25; Start 07/16/16 at 09:30; Stop 07/20/16 at 08:58; Status DC Lorazepam (Ativan) 0.5 mg PRN BID PRN PO ANXIETY / AGITATION Last administered on 07/29/16 02:16; Start 07/16/16 at 08:45; Stop 07/31/16 at 15:01; Status DC Simethicone (Gas-X) 80 mg PRN Q4HRS PRN PO GAS / BLOATING Last administered on 07/24/16 22:30; Start 07/16/16 at 08:45; Stop 07/31/16 at 15:01; Status DC Zolpidem Tartrate 5 mg 5 mg PRN QHS PRN PO INSOMNIA Last administered on 23:14; Start 07/16/16 at 08:45; Stop 07/31/16 at 15:01; Status DC Potassium Chloride/Dextrose/ Sod Cl 1,000 ml @ 80 mls/hr [id number] IV Last administered on 07/16/16 10:54; Start 07/16/16 at 09:30; Stop 07/16/16 at 21:59; Status DC Fluconazole/ Sodium Chloride (Diflucan 200mg/ 100ml Premix) 100 ml @ 100 mls/ hr Q24H IV Last administered on 07/18/16 11:43; Start 07/16/16 at 11:00; Stop at 13:28; Status DC Info 1 each 1 each PRN DAILY PRN MC SEE COMMENTS Last administered on 12:41; Start 07/16/16 at 10:00; Stop 08/01/16 at 11:24; Status DC Sodium Chloride 220 meq/Sodium Acetate 90 meq/ Potassium Chloride 50 meq/ Potassium Acetate 15 meq/Potassium Phosphate 10 mmol/ Magnesium Sulfate 50 meq/ Calcium Gluconate 6 meq/ Multivitamins/ Minerals 10 ml/ Chromium/Copper/ Manganese/Seleni/ Zn 1 ml/Total Parenteral Nutrition/Amino Acids/Dextro... 1, 920 ml @ 80 mls/hr TPN CONT IV ; Start 07/16/16 at 22:00; Stop 07/16/16 at 22:00 ; Status DC Sodium Chloride/ Sodium Acetate/ Potassium Chloride/ Potassium Acetate/ Potassium Phosphate/ Magnesium Sulfate/ Calcium Gluconate/ Multivitamins/ Minerals/Chromium/ Copper/Manganese/ Seleni/Zn/Total Parenteral Nutrition/Amino Acids/Dextrose/ Fat Emulsion Intravenous (Sodium Chlori... 1,820 ml @ 75.833 mls/ hr TPN CONT IV Last administered on 07/16/16 21:03; Start 07/16/16 at 22: 00; Stop 07/17/16 at 21:59; Status DC Ondansetron HCl (Zofran) 4 mg PRN Q6HRS PRN IV NAUSEA/VOMITING Last administered on 07/21/16 08:48; Start 07/16/16 at 17:15; Stop 07/31/16 at 15:01; Status DC Diphenhydramine HCl (Benadryl) 25 mg PRN Q6HRS PRN PO ITCHING Last administered on 07/25/16 23:38; Start 07/16/16 at 17:45; Stop 07/31/16 at 15:01 ; Status DC Lidocaine (Xylocaine) 1 sang BID TP Last administered on 08/04/16 20:44; Start 07/17/16 at 09:00 Zinc Oxide 1 sang 1 sang BID TP Last administered on 08/04/16 20:44; Start at 09:30 Sodium Chloride/ Sodium Acetate/ Potassium Chloride/ Potassium Acetate/ Potassium Phosphate/ Magnesium Sulfate/ Calcium Gluconate/ Multivitamins/ Minerals/Chromium/ Copper/Manganese/ Seleni/Zn/Total Parenteral Nutrition/Amino Acids/Dextrose/ Fat Emulsion Intravenous (Sodium Chlori... 1,920 ml @ 80 mls/ hr TPN CONT IV Last administered on 07/17/16 22:13; Start 07/17/16 at 22:00; Stop 07/18/16 at 21:59; Status DC Furosemide 40 mg 40 mg 1X ONCE IVP Last administered on 07/18/16 11:43; Start 07/18/16 at 11:00; Stop 07/18/16 at 11:07; Status DC Sodium Chloride 220 meq/Sodium Acetate 90 meq/ Potassium Chloride 50 meq/ Potassium Acetate 15 meq/Potassium Phosphate 10 mmol/ Magnesium Sulfate 50 meq/ Calcium Gluconate 3 meq/ Multivitamins/ Minerals 10 ml/ Chromium/Copper/ Manganese/Seleni/ Zn 1 ml/Total Parenteral Nutrition/Amino Acids/Dextro... 1, 920 ml @ 80 mls/hr TPN CONT IV Last administered on 07/19/16 00:03; Start 07/18/16 at 22:00; Stop 07/19/16 at 21:59; Status DC Meropenem 1 gm/ Sodium Chloride 100 ml @ 200 mls/hr Q8HRS IV Last administered on 07/20/16 05:21; Start 07/18/16 at 14:00; Stop 07/20/16 at 11:25; Status DC Micafungin Sodium 100 mg/Dextrose 100 ml @ 100 mls/hr Q24H IV Last administered on 07/19/16 15:05; Start 07/18/16 at 14:00; Stop 07/20/16 at 11:25; Status DC Daptomycin/Sodium Chloride (Cubicin/Iv Sodium Chloride 0.9% 50ml) 50 ml @ 100 mls/hr Q24H IV Last administered on 07/19/16 16:56; Start 07/18/16 at 15:00; Stop 07/20/16 at 11:25; Status DC Alteplase, Recombinant (Cathflo) 2 mg 1X ONCE INT CAT Last administered on 07/19 06:24; Start 07/19/16 at 07:00; Stop 07/19/16 at 07:01; Status DC Gentamicin Sulfate 1 each 1 each PRN DAILY PRN MC SEE COMMENTS Last administered on 07/25/16 15:31; Start 07/19/16 at 12:15; Stop 07/25/16 at 16:14 ; Status DC Gentamicin Sulfate/Sodium Chloride (Iv Sodium Chloride 0.9% 100ml) 106.75 ml @ 106.75 mls/hr Q24H IV Last administered on 07/25/16 15:31; Start 07/19/16 at 13 :00; Stop 07/25/16 at 16:12; Status DC Gentamicin Sulfate 1 each 1 each 1X ONCE MC Last administered on 07/19/16 23: 00; Start 07/19/16 at 23:00; Stop 07/19/16 at 23:01; Status DC Sodium Chloride/ Sodium Acetate/ Potassium Chloride/ Potassium Acetate/ Potassium Phosphate/ Magnesium Sulfate/ Calcium Gluconate/ Multivitamins/ Minerals/Chromium/ Copper/Manganese/ Seleni/Zn/Total Parenteral Nutrition/Amino Acids/Dextrose/ Fat Emulsion Intravenous (Sodium Chlori... 1,920 ml @ 80 mls/ hr TPN CONT IV Last administered on 07/19/16 20:51; Start 07/19/16 at 22:00; Stop 07/20/16 at 21:59; Status DC Hyoscyamine (Anaspaz) 0.125 mg PRN Q6HRS PRN PO BLADDER SPASM; Start 07/20/16 at 09:00; Stop 07/31/16 at 15:01; Status DC Phenazopyridine HCl 200 mg 200 mg PRN TID PRN PO BLADDER SPASM Last administered on 07/21/16 20:14; Start 07/20/16 at 09:00; Stop 07/31/16 at 15:01; Status DC Linezolid 300 ml @ 300 mls/hr Q12HR IV Last administered on 07/25/16 09:02; Start 07/20/16 at 12:00; Stop 07/25/16 at 16:12; Status DC Sodium Chloride 220 meq/Sodium Acetate 90 meq/ Potassium Chloride 50 meq/ Potassium Acetate 15 meq/Potassium Phosphate 10 mmol/ Magnesium Sulfate 50 meq/ Calcium Gluconate 3 meq/ Multivitamins/ Minerals 10 ml/ Chromium/Copper/ Manganese/Seleni/ Zn 1 ml/Total Parenteral Nutrition/Amino Acids/Dextro... 1, 920 ml @ 80 mls/hr TPN CONT IV Last administered on 07/20/16 21:30; Start 07/20/16 at 22:00; Stop 07/21/16 at 21:59; Status DC Sodium Chloride/ Sodium Acetate/ Potassium Chloride/ Potassium Acetate/ Potassium Phosphate/ Magnesium Sulfate/ Multivitamins/ Minerals/Chromium/ Copper /Manganese/ Seleni/Zn/Total Parenteral Nutrition/Amino Acids/Dextrose/ Fat Emulsion Intravenous (Sodium Chloride/ Potass... 1,920 ml @ 80 mls/hr TPN CONT IV Last administered on 07/21/16 22:05; Start 07/21/16 at 22:00; Stop at 21:59; Status DC Alteplase, Recombinant 2 mg 2 mg PRN DAILY PRN INT CAT INFLAMMATION Last administered on 07/27/16 11:31; Start 07/21/16 at 15:00 Sodium Chloride 220 meq/Sodium Acetate 90 meq/ Potassium Chloride 50 meq/ Potassium Acetate 15 meq/Potassium Phosphate 10 mmol/ Magnesium Sulfate 50 meq/ Multivitamins/ Minerals 10 ml/ Chromium/Copper/ Manganese/Seleni/ Zn 1 ml/Total Parenteral Nutrition/Amino Acids/Dextrose/ Fat Emuls... 1,920 ml @ 80 mls/hr TPN CONT IV Last administered on 07/22/16 20:53; Start 07/22/16 at 22:00; Stop 07/23/16 at 21:59; Status DC Sodium Chloride/ Sodium Acetate/ Potassium Chloride/ Potassium Acetate/ Potassium Phosphate/ Magnesium Sulfate/ Multivitamins/ Minerals/Chromium/ Copper /Manganese/ Seleni/Zn/Total Parenteral Nutrition/Amino Acids/Dextrose/ Fat Emulsion Intravenous (Sodium Chloride/ Potass... 1,920 ml @ 80 mls/hr TPN CONT IV Last administered on 07/23/16 21:16; Start 07/23/16 at 22:00; Stop 07/24 at 21:59; Status DC Gentamicin Sulfate 1 each 1 each 1X ONCE MC ; Start 07/23/16 at 22:00; Stop 07/23 at 22:01; Status Cancel Sodium Chloride/ Sodium Acetate/ Potassium Chloride/ Potassium Acetate/ Potassium Phosphate/ Magnesium Sulfate/ Multivitamins/ Minerals/Chromium/ Copper /Manganese/ Seleni/Zn/Total Parenteral Nutrition/Amino Acids/Dextrose/ Fat Emulsion Intravenous (Sodium Chloride/ Potass... 1,920 ml @ 80 mls/hr TPN CONT IV Last administered on 07/24/16 21:15; Start 07/24/16 at 22:00; Stop 04/30 at 21:59; Status DC Gentamicin Sulfate 1 each 1X ONCE MC ; Start 07/25/16 at 12:30; Stop 07/25/16 at 12:31; Status Cancel Amlodipine Besylate 5 mg 5 mg DAILY PO Last administered on 07/27/16 11:12; Start 07/25/16 at 12:00; Stop 07/29/16 at 08:44; Status DC Sodium Chloride 220 meq/Sodium Acetate 90 meq/ Potassium Chloride 30 meq/ Potassium Acetate 15 meq/Potassium Phosphate 10 mmol/ Magnesium Sulfate 50 meq/ Multivitamins/ Minerals 10 ml/ Chromium/Copper/ Manganese/Seleni/ Zn 1 ml/Total Parenteral Nutrition/Amino Acids/Dextrose/ Fat Emuls... 1,920 ml @ 80 mls/hr TPN CONT IV Last administered on 07/25/16 22:25; Start 07/25/16 at 22:00; Stop 07/26/16 at 21:59; Status DC Sodium Chloride/ Sodium Acetate/ Potassium Chloride/ Potassium Acetate/ Potassium Phosphate/ Magnesium Sulfate/ Multivitamins/ Minerals/Chromium/ Copper /Manganese/ Seleni/Zn/Total Parenteral Nutrition/Amino Acids/Dextrose/ Fat Emulsion Intravenous (Sodium Chloride/ Potass... 1,920 ml @ 80 mls/hr TPN CONT IV Last administered on 07/26/16 23:16; Start 07/26/16 at 22:00; Stop at 21:59; Status DC Furosemide 20 mg 20 mg 1X ONCE IVP Last administered on 07/27/16 11:31; Start 07/27/16 at 09:00; Stop 07/27/16 at 09:01; Status DC Daptomycin 340 mg/ Sodium Chloride 50 ml @ 100 mls/hr Q24H IV Last administered on 07/29/16 15:05; Start 07/27/16 at 13:00; Stop 07/30/16 at 07:25 ; Status DC Piperacillin Sod/ Tazobactam Sod 3.375 gm/Sodium Chloride 50 ml @ 100 mls/hr Q6HRS IV Last administered on 07/30/16 05:30; Start 07/27/16 at 12:30; Stop at 07:25; Status DC Fluconazole/ Sodium Chloride 100 ml @ 100 mls/hr Q24H IV Last administered on 07/28/16 13:32; Start 07/27/16 at 13:00; Stop 07/29/16 at 00:53; Status DC Sodium Chloride 1,000 ml @ 1,000 mls/hr 1X ONCE IV Last administered on 12:34; Start 07/27/16 at 12:30; Stop 07/27/16 at 13:29; Status DC Sodium Chloride 220 meq/Sodium Acetate 90 meq/ Potassium Chloride 30 meq/ Potassium Acetate 15 meq/Potassium Phosphate 10 mmol/ Magnesium Sulfate 45 meq/ Multivitamins/ Minerals 10 ml/ Chromium/Copper/ Manganese/Seleni/ Zn 1 ml/Total Parenteral Nutrition/Amino Acids/Dextrose/ Fat Emuls... 1,920 ml @ 80 mls/hr TPN CONT IV Last administered on 07/27/16 22:38; Start 07/27/16 at 22:00; Stop 07/28/16 at 21:59; Status DC Sodium Chloride (Iv Sodium Chloride 0.9% 1000ml Bag) 1,000 ml @ 45 mls/hr [id number] IV Last administered on 07/28/16 03:24; Start 07/27/16 at 17:00; Stop 07/28/16 at 10:27; Status DC Acetaminophen 650 mg 650 mg PRN Q6HRS PRN [place] fever Last administered on 03:57; Start 07/27/16 at 16:30; Stop 07/29/16 at 08:33; Status DC Sodium Chloride 1,000 ml @ 427.5 mls/ hr Q2H21M IV Last administered on 19:30; Start 07/27/16 at 19:30; Stop 07/27/16 at 23:30; Status DC Sodium Chloride 220 meq/Sodium Acetate 90 meq/ Potassium Chloride 30 meq/ Potassium Acetate 15 meq/Potassium Phosphate 10 mmol/ Magnesium Sulfate 45 meq/ Multivitamins/ Minerals 10 ml/ Chromium/Copper/ Manganese/Seleni/ Zn 1 ml/Total Parenteral Nutrition/Amino Acids/Dextrose/ Fat Emuls... 1,920 ml @ 80 mls/hr TPN CONT IV Last administered on 07/28/16 21:43; Start 07/28/16 at 22:00; Stop 07/29/16 at 21:59; Status DC Micafungin Sodium/ Dextrose (Mycamine) 100 ml @ 100 mls/hr Q24H IV Last administered on 08/05/16 01:16; Start 07/29/16 at 01:00 Lorazepam (Ativan) 0.05 mg PRN Q4HRS PRN IV ANXIETY / AGITATION; Start at 02:30; Stop 07/29/16 at 02:48; Status DC Lorazepam (Ativan) 0.5 mg PRN Q4HRS PRN IV ANXIETY / AGITATION Last administered on 07/29/16 03:18; Start 07/29/16 at 03:00 Acetaminophen (Tylenol) 650 mg PRN Q4HRS PRN TN MILD PAIN / TEMP; Start at 08:30 Ketorolac Tromethamine (Toradol) 30 mg PRN Q6HRS PRN IV PAIN/FEVER Last administered on 07/30/16 00:50; Start 07/29/16 at 08:30; Stop 07/30/16 at 13:01 ; Status DC Pantoprazole Sodium 40 mg 40 mg DAILYAC IVP Last administered on 08/04/16 08: 54; Start 07/29/16 at 09:00 Sodium Chloride 1,000 ml @ 45 mls/hr [id number] IV Last administered on 09:17; Start 07/29/16 at 08:45; Stop 07/31/16 at 15:01; Status DC Sodium Chloride/ Sodium Acetate/ Potassium Chloride/ Potassium Acetate/ Potassium Phosphate/ Magnesium Sulfate/ Multivitamins/ Minerals/Chromium/ Copper /Manganese/ Seleni/Zn/Total Parenteral Nutrition/Amino Acids/Dextrose/ Fat Emulsion Intravenous (Sodium Chloride/ Potass... 1,920 ml @ 80 mls/hr TPN CONT IV Last administered on 07/29/16 22:06; Start 07/29/16 at 22:00; Stop at 21:59; Status DC Lidocaine/Sodium Bicarbonate 20 ml 20 ml STK-MED ONCE IJ ; Start 07/29/16 at 13: 13; Stop 07/29/16 at 13:14; Status DC Heparin Sodium/ Sodium Chloride 500 ml @ As Directed STK-MED ONCE .ROUTE ; Start 07/29/16 at 13:13; Stop 07/29/16 at 13:14; Status DC Lidocaine/ Epinephrine (Xylocaine 1%-Epi 1:100,000) 20 ml STK-MED ONCE .ROUTE ; Start 07/29/16 at 13:22; Stop 07/29/16 at 13:23; Status DC Midazolam HCl (Versed) 5 mg STK-MED ONCE .ROUTE ; Start 07/29/16 at 13:32; Stop 07/29/16 at 13:33; Status DC Fentanyl Citrate (Fentanyl 5ml Vial) 250 mcg STK-MED ONCE .ROUTE ; Start at 13:32; Stop 07/29/16 at 13:33; Status DC Heparin Sodium/ Sodium Chloride 1,000 unit 1X ONCE IART Last administered on 13:45; Start 07/29/16 at 13:45; Stop 07/29/16 at 13:48; Status DC Midazolam HCl (Versed) 5 mg 1X ONCE IV Last administered on 07/29/16 13:45; Start 07/29/16 at 13:45; Stop 07/29/16 at 13:48; Status DC Fentanyl Citrate (Fentanyl 5ml Vial) 250 mcg 1X ONCE IV Last administered on 13:45; Start 07/29/16 at 13:45; Stop 07/29/16 at 13:48; Status DC Lidocaine/ Epinephrine 20 ml 20 ml 1X ONCE IJ Last administered on 07/29/16 13:45; Start 07/29/16 at 13:45; Stop 07/29/16 at 13:48; Status DC Sodium Chloride 220 meq/Sodium Acetate 90 meq/ Potassium Chloride 15 meq/ Potassium Acetate 30 meq/Potassium Phosphate 10 mmol/ Magnesium Sulfate 45 meq/ Multivitamins/ Minerals 10 ml/ Chromium/Copper/ Manganese/Seleni/ Zn 1 ml/Total Parenteral Nutrition/Amino Acids/Dextrose/ Fat Emuls... 1,920 ml @ 80 mls/hr TPN CONT IV ; Start 07/30/16 at 22:00; Stop 07/31/16 at 21:59; Status DC Norepinephrine Bitartrate 8 mg/ Sodium Chloride 258 ml @ 1.93 mls/hr 1X ONCE IV Last administered on 07/30/16 11:17; Start 07/30/16 at 11:15; Stop at 15:43; Status DC Norepinephrine Bitartrate/Sodium Chloride (Levophed Vial/ Iv Sodium Chloride 0.9 % 250ml) 258 ml @ 0 mls/hr CONT PRN IV SEE I/O RECORD Last administered on 08/02 19:54; Start 07/30/16 at 11:15; Stop 08/04/16 at 09:29; Status DC Furosemide 60 mg 60 mg 1X ONCE IVP Last administered on 07/30/16 11:14; Start 07/30/16 at 11:15; Stop 07/30/16 at 11:16; Status DC Sodium Chloride 500 ml @ 500 mls/hr Q1H IV Last administered on 07/30/16 17: 04; Start 07/30/16 at 14:30; Stop 07/30/16 at 15:29; Status DC Albumin Human 100 ml @ 100 mls/hr Q8HRS IV Last administered on 07/31/16 05: 37; Start 07/30/16 at 14:30; Stop 07/31/16 at 06:59; Status DC Furosemide/Sodium Chloride (Lasix Drip/Iv Sodium Chloride 0.9% 100ml) 100 ml @ 0 mls/hr CONT PRN IV SEE I/O RECORD Last administered on 07/31/16 03:17; Start 07/30/16 at 14:30; Stop 08/01/16 at 13:19; Status DC Ondansetron HCl (Zofran) 8 mg PRN Q8HRS PRN IV NAUSEA/VOMITING Last administered on 07/30/16 14:38; Start 07/30/16 at 14:30 Sodium Bicarbonate 50 meq 50 meq 1X ONCE IV Last administered on 07/30/16 14: 43; Start 07/30/16 at 14:30; Stop 07/30/16 at 14:31; Status DC Heparin Sodium/ Sodium Chloride 500 ml @ As Directed STK-MED ONCE .ROUTE ; Start 07/30/16 at 14:49; Stop 07/30/16 at 14:50; Status DC Lidocaine HCl 20 ml STK-MED ONCE .ROUTE ; Start 07/30/16 at 14:49; Stop at 14:50; Status DC Midazolam HCl (Versed) 2 mg STK-MED ONCE .ROUTE ; Start 07/30/16 at 15:19; Stop 07/30/16 at 15:20; Status DC Heparin Sodium/ Sodium Chloride 1,000 unit 1X ONCE IART Last administered on 15:44; Start 07/30/16 at 15:45; Stop 07/30/16 at 15:46; Status DC Midazolam HCl (Versed) 1.5 mg 1X ONCE IV Last administered on 07/30/16 15:44 ; Start 07/30/16 at 15:45; Stop 07/30/16 at 15:46; Status DC Lidocaine HCl 20 ml 1X ONCE IJ Last administered on 07/30/16 15:44; Start at 15:45; Stop 07/30/16 at 15:46; Status DC Heparin Sodium (Porcine) 96320 unit 10,000 unit STK-MED ONCE .ROUTE ; Start at 15:54; Stop 07/30/16 at 15:55; Status DC Fentanyl Citrate 30 ml @ 0 mls/hr CONT PRN PRN IV PROTOCOL Last administered on 08/05/16 01:17; Start 07/30/16 at 16:45 Sodium Bicarbonate/ Dextrose 1,150 ml @ 125 mls/hr 1X ONCE IV Last administered on 07/30/16 18:34; Start 07/30/16 at 17:30; Stop 07/31/16 at 02:41 ; Status DC Succinylcholine Chloride 200 mg 200 mg STK-MED ONCE .ROUTE ; Start 07/30/16 at 19:47; Stop 07/30/16 at 19:48; Status DC Propofol 100 ml @ As Directed STK-MED ONCE IV ; Start 07/30/16 at 19:48; Stop 07/30/16 at 19:49; Status DC Midazolam HCl (Versed 100mg/ 100ml Premix) 100 ml @ 0 mls/hr CONT PRN IV SEE I/ O RECORD Last administered on 08/03/16 12:18; Start 07/30/16 at 21:15 Sodium Bicarbonate 50 meq 50 meq 1X ONCE IV Last administered on 07/30/16 22: 15; Start 07/30/16 at 22:30; Stop 07/30/16 at 22:31; Status DC Dopamine HCl/ Dextrose 250 ml @ 11.513 mls/ hr CONT PRN IV SEE I/O RECORD Last administered on 07/31/16 20:16; Start 07/30/16 at 22:15; Stop 08/04/16 at 09:29; Status DC Sodium Bicarbonate/ Dextrose 1,150 ml @ 125 mls/hr Q9H12M IV Last administered on 08/01/16 09:30; Start 07/31/16 at 03:00; Stop 08/01/16 at 13:19 ; Status DC Propofol (Diprivan) 1,000 mg STK-MED ONCE IV ; Start 07/30/16 at 20:00; Stop at 08:16; Status DC Succinylcholine Chloride 200 mg 200 mg STK-MED ONCE .ROUTE ; Start 07/30/16 at 20:00; Stop 07/31/16 at 08:16; Status DC Tigecycline 50 mg/ Sodium Chloride 50 ml @ 100 mls/hr Q12HR IV Last administered on 08/04/16 09:01; Start 07/31/16 at 21:00; Stop 08/04/16 at 10:00 ; Status DC Tigecycline/ Sodium Chloride (Tygacil/Iv Sodium Chloride 0.9% 100ml) 100 ml @ 200 mls/hr 1X ONCE IV Last administered on 07/31/16 09:22; Start 07/31/16 at 09:00; Stop 07/31/16 at 09:29; Status DC Darbepoetin Sarbjit 60 mcg 60 mcg [id number] SQ Last administered on 07/31/16 21:09 ; Start 07/31/16 at 21:00 Albumin Human 100 ml @ 100 mls/hr 1X ONCE IV Last administered on 07/31/16 11:40; Start 07/31/16 at 11:15; Stop 07/31/16 at 12:14; Status DC Albumin Human 100 ml @ 100 mls/hr 1X ONCE IV Last administered on 07/31/16 12:03; Start 07/31/16 at 11:15; Stop 07/31/16 at 12:14; Status DC Sodium Chloride (Iv Sodium Chloride 0.9% 1000ml Bag) 1,000 ml @ 1,000 mls/hr Q1H PRN IV hypotension; Start 07/31/16 at 11:33; Stop 07/31/16 at 17:32; Status DC Info (PHARMACY MONITORING -- do not chart) 1 each PRN DAILY PRN MC SEE COMMENTS ; Start 07/31/16 at 11:45 Info (PHARMACY MONITORING -- do not chart) 1 each PRN DAILY PRN MC SEE COMMENTS ; Start 07/31/16 at 11:45; Status UNV Hydrocortisone Sodium Succinate (Solu-Cortef) 100 mg Q8HRS IV Last administered on 08/04/16 06:16; Start 08/01/16 at 07:00; Stop 08/04/16 at 09:29 ; Status DC Albuterol/ Ipratropium (Duoneb) 3 ml RTQID NEB Last administered on 08/05/16 07:48; Start 08/01/16 at 08:00 Albuterol/ Ipratropium 3 ml 3 ml STK-MED ONCE .ROUTE Last administered on 07:34; Start 08/01/16 at 06:59; Stop 08/01/16 at 07:00; Status DC Sodium Chloride 1,000 ml @ 1,000 mls/hr Q1H PRN IV hypotension; Start 08/01/16 at 06:57; Stop 08/01/16 at 12:56; Status DC Albumin Human (Albuminar) 200 ml @ 200 mls/hr 1X PRN PRN IV Hypotension; Start 08/01/16 at 07:00; Stop 08/01/16 at 12:59; Status DC Info (PHARMACY MONITORING -- do not chart) 1 each PRN DAILY PRN MC SEE COMMENTS ; Start 08/01/16 at 07:00; Status UNV Info 1 each 1 each PRN DAILY PRN MC SEE COMMENTS Last administered on 14:00; Start 08/01/16 at 13:30 Sodium Chloride 220 meq/Sodium Acetate 90 meq/ Potassium Chloride 15 meq/ Potassium Acetate 30 meq/Potassium Phosphate 10 mmol/ Magnesium Sulfate 45 meq/ Multivitamins/ Minerals 10 ml/ Chromium/Copper/ Manganese/Seleni/ Zn 1 ml/Total Parenteral Nutrition/Amino Acids/Dextrose/ Fat Emuls... 1,920 ml @ 80 mls/hr TPN CONT IV Last administered on 08/01/16 21:56; Start 08/01/16 at 22:00; Stop 08/02/16 at 21:59; Status DC Potassium Chloride (KCl Premix 20meq) 50 ml @ 50 mls/hr Q1H IV Last administered on 08/01/16 19:05; Start 08/01/16 at 17:00; Stop 08/01/16 at 18:59 ; Status DC Insulin Aspart 0-6 UNITS TIDWMEALS SQ Last administered on 08/02/16 11:33; Start 08/02/16 at 12:00; Stop 08/02/16 at 14:34; Status DC Sodium Chloride 220 meq/Sodium Acetate 90 meq/ Potassium Chloride 15 meq/ Potassium Acetate 30 meq/Magnesium Sulfate 45 meq/ Multivitamins/ Minerals 10 ml / Chromium/Copper/ Manganese/Seleni/ Zn 1 ml/Total Parenteral Nutrition/Amino Acids/Dextrose/ Fat Emulsion Intravenous 1,920 ml @ 80 mls/hr TPN CONT IV Last administered on 08/02/16 21:34; Start 08/02/16 at 22:00; Stop 08/03/16 at 21:59; Status DC Levofloxacin/ Dextrose 150 ml @ 100 mls/hr 1X ONCE IV Last administered on 14:35; Start 08/02/16 at 14:00; Stop 08/02/16 at 15:29; Status DC Daptomycin/Sodium Chloride (Cubicin/Iv Sodium Chloride 0.9% 50ml) 50 ml @ 100 mls/hr ONCE ONCE IV Last administered on 08/02/16 14:34; Start 08/02/16 at 15 :00; Stop 08/02/16 at 15:29; Status DC Insulin Aspart 0-6 UNITS Q6HRS SQ Last administered on 08/05/16 05:39; Start 08/02/16 at 18:00 Sodium Chloride (Iv Sodium Chloride 0.9% 1000ml Bag) 1,000 ml @ 1,000 mls/hr Q1H PRN IV hypotension; Start 08/03/16 at 07:26; Stop 08/03/16 at 13:25; Status DC Diphenhydramine HCl (Benadryl) 25 mg 1X PRN PRN IV ITCHING; Start 08/03/16 at 07:30; Stop 08/04/16 at 07:29; Status DC Diphenhydramine HCl (Benadryl) 25 mg 1X PRN PRN IV ITCHING; Start 08/03/16 at 07:30; Stop 08/04/16 at 07:29; Status DC Sodium Chloride (Normal Saline Flush) 10 ml 1X PRN PRN IV AP catheter pack; Start 08/03/16 at 07:30; Stop 08/04/16 at 07:29; Status DC Sodium Chloride 10 ml 10 ml 1X PRN PRN IV 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; Start 08/03/16 at 07:30; Stop 08/04/16 at 07:29; Status DC Sodium Chloride (Iv Sodium Chloride 0.9% 1000ml Bag) 1,000 ml @ 400 mls/hr Q2H30M PRN IV PATENCY; Start 08/03/16 at 07:26; Stop 08/03/16 at 19:25; Status DC Info 1 each 1 each PRN DAILY PRN MC SEE COMMENTS; Start 08/03/16 at 07:30; Status UNV Albumin Human 200 ml @ 200 mls/hr Q2HR IV Last administered on 08/03/16 10:00 ; Start 08/03/16 at 08:44; Stop 08/03/16 at 10:59; Status DC Sodium Chloride 160 meq/Sodium Acetate 60 meq/ Potassium Chloride 15 meq/ Potassium Acetate 30 meq/Magnesium Sulfate 25 meq/ Multivitamins/ Minerals 10 ml / Chromium/Copper/ Manganese/Seleni/ Zn 1 ml/Total Parenteral Nutrition/Amino Acids/Dextrose/ Fat Emulsion Intravenous 1,500 ml @ 62.5 mls/hr TPN CONT IV Last administered on 08/03/16 22:52; Start 08/03/16 at 22:00; Stop 08/04/16 at 21:59; Status DC Levofloxacin/ Dextrose 100 ml @ 100 mls/hr 1X ONCE IV Last administered on 10:50; Start 08/04/16 at 07:30; Stop 08/04/16 at 08:30; Status DC Daptomycin 450 mg/ Sodium Chloride 50 ml @ 100 mls/hr ONCE ONCE IV Last administered on 08/04/16 09:55; Start 08/04/16 at 08:00; Stop 08/04/16 at 08:30 ; Status DC Tigecycline/ Sodium Chloride (Tygacil/Iv Sodium Chloride 0.9% 50ml) 50 ml @ 100 mls/hr Q12HR IV Last administered on 08/04/16 20:44; Start 08/04/16 at 21: 00 Hydrocortisone Sodium Succinate 50 mg 50 mg Q8HRS IV Last administered on 05:39; Start 08/04/16 at 14:00 Furosemide 100 mg/ Sodium Chloride 100 ml @ 0 mls/hr CONT PRN IV SEE I/O RECORD Last administered on 08/05/16 01:36; Start 08/04/16 at 11:30 Sodium Chloride 160 meq/Sodium Acetate 60 meq/ Potassium Chloride 15 meq/ Potassium Acetate 30 meq/Magnesium Sulfate 25 meq/ Multivitamins/ Minerals 10 ml / Chromium/Copper/ Manganese/Seleni/ Zn 1 ml/Total Parenteral Nutrition/Amino Acids/Dextrose/ Fat Emulsion Intravenous 1,500 ml @ 62.5 mls/hr TPN CONT IV Last administered on 08/04/16 21:45; Start 08/04/16 at 22:00 Sodium Chloride 1,000 ml @ 1,000 mls/hr Q1H PRN IV hypotension; Start 08/04/16 at 12:00; Stop 08/04/16 at 17:59; Status DC Sodium Chloride (Iv Sodium Chloride 0.9% 1000ml Bag) 1,000 ml @ 400 mls/hr Q2H30M PRN IV PATENCY; Start 08/04/16 at 12:00; Stop 08/04/16 at 23:59; Status DC Info 1 each 1 each PRN DAILY PRN MC SEE COMMENTS; Start 08/04/16 at 16:30; Status UNV Levofloxacin/ Dextrose 100 ml @ 100 mls/hr 1X ONCE IV ; Start 08/05/16 at 14: 00; Stop 08/05/16 at 14:59 Daptomycin/Sodium Chloride (Cubicin/Iv Sodium Chloride 0.9% 50ml) 50 ml @ 100 mls/hr 1X ONCE IV ; Start 08/05/16 at 14:00; Stop 08/05/16 at 14:29 Active Scripts Active Dilaudid (Hydromorphone Hcl) 4 Mg Tablet 4 Mg PO Q6HRS Phenazopyridine Hcl 200 Mg Tablet 200 Mg PO PRN TID PRN FENTANYL 50mcg/hr (Fentanyl) 1 Each Patch.td72 1 Patch TD Q3DAYS Anaspaz (Hyoscyamine Sulfate) 0.125 Mg Tab.rapdis 0.125 Mg PO Q6HRS PRN Cefpodoxime Proxetil 200 Mg Tablet 200 Mg PO BID Sertraline Hcl 50 Mg Tablet 100 Mg PO DAILY 30 Days Protonix (Pantoprazole Sodium) 40 Mg Tablet.dr 1 Tab PO DAILY Zinc Oxide 56.7 Gm Oint...g. 1 Sang TP BID Lidocaine 35.44 Gm Oint...g. 1 Sang TP BID Ondansetron Odt (Ondansetron) 4 Mg Tab.rapdis 8 Mg PO PRN Q8HRS PRN Gas-X (Simethicone) 80 Mg Tab.chew 80 Mg PO PRN QID PRN Reported Lorazepam 0.5 Mg Tablet 0.5 Mg PO PRN BID PRN Vitals/I & O Vital Sign - Last 24 Hours 08/04/16 08/04/16 08/04/16 08/04/16 10:03 11:00 11:25 12:00 Temp 98.7 98.7 Pulse 94 94 Resp 24 24 B/P 133/61 129/57 Pulse Ox 100 100 100 O2 Delivery Ventilator Ventilator Ventilator Mechanical Ventilator 08/04/16 08/04/16 08/04/16 08/04/16 12:00 12:00 13:00 13:35 Pulse 93 97 Resp 20 20 B/P 126/59 99/51 126/74 Pulse Ox 100 99 100 O2 Delivery Ventilator Ventilator Ventilator 08/04/16 08/04/16 08/04/16 08/04/16 14:00 15:00 15:44 16:00 Temp 97.7 97.7 Pulse 102 100 99 Resp 20 26 25 B/P 123/62 115/64 114/62 Pulse Ox 99 99 100 99 O2 Delivery Ventilator Ventilator Ventilator Ventilator 08/04/16 08/04/16 08/04/16 08/04/16 16:00 17:00 17:58 18:00 Temp 98.3 98.3 Pulse 106 97 Resp 25 23 B/P 119/54 120/64 Pulse Ox 99 99 99 O2 Delivery Mechanical Ventilator Ventilator Ventilator Ventilator 08/04/16 08/04/16 08/04/16 08/04/16 19:00 20:00 20:00 20:00 Pulse 96 95 95 Resp 20 22 B/P 120/52 118/47 118/47 Pulse Ox 100 100 O2 Delivery Ventilator Ventilator Mechanical Ventilator 08/04/16 08/04/16 08/04/16 08/04/16 20:20 21:00 22:00 23:00 Pulse 98 92 92 Resp 20 21 20 B/P 111/55 105/47 113/52 Pulse Ox 100 100 100 100 O2 Delivery Ventilator Ventilator Ventilator Ventilator 08/04/16 08/04/16 08/05/16 08/05/16 23:24 23:59 00:00 00:00 Temp 97.5 97.5 Pulse 91 91 Resp 20 B/P 114/47 114/43 Pulse Ox 100 100 O2 Delivery Ventilator Ventilator Mechanical Ventilator 08/05/16 08/05/16 08/05/16 08/05/16 01:00 01:08 02:00 03:00 Pulse 90 92 94 Resp 20 20 20 B/P 116/52 131/57 136/60 Pulse Ox 100 100 100 100 O2 Delivery Ventilator Ventilator Ventilator Ventilator 08/05/16 08/05/16 08/05/16 08/05/16 03:25 03:43 04:00 04:00 Temp 97.8 97.8 Pulse 93 93 Resp 20 B/P 130/57 130/57 Pulse Ox 99 100 O2 Delivery Ventilator Mechanical Ventilator Ventilator 08/05/16 08/05/16 08/05/16 08/05/16 05:00 05:40 06:00 07:48 Pulse 86 84 Resp 20 20 B/P 108/48 126/53 Pulse Ox 100 100 100 100 O2 Delivery Ventilator Ventilator Ventilator Ventilator 08/05/16 08/05/16 08/05/16 08:15 08:30 09:19 Temp 98.0 98.0 98.0 98.0 Pulse 85 85 Resp 22 20 B/P 107/45 112/53 Pulse Ox 100 O2 Delivery Ventilator Intake and Output 08/04/16 08/04/16 08/05/16 15:00 23:00 07:00 Intake Total 200 ml 789.95 ml 1540.6 ml Output Total 235 ml 185 ml 293 ml Balance -35 ml 604.95 ml 1247.6 ml MATT PALACIOS MD Aug 05, 2016 09:29
[2016-08-05] MEDS ORDERED: HEPARIN for IV BOLUS 10,000 UNIT/10 ML VIAL. ONE (09:35)
[2016-08-05] MEDS ORDERED: LIDOCAINE 1% / SOD BICARB 8.4% 20 ML VIAL. IJ ONE ×2 (09:36→10:00)
--- NOTE | 2016-08-05 10:23 | PDOC ---
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 She has a single remaining jugular access vein, which currently contains a CVC. She needs groin temp HDC replaced to neck, due to infection risk. She needs ongoing CV access for TPN, as well as abx, sedation (on vent), analgesia, and PRN pressors. Guidewire exchange of rt jugular CVC for 3L temp HDC has been requested. Post-Procedure Diagnosis Post-Procedure Diagnosis Same Procedure Performed Procedure Performed Bedside ICU guidewire exchange of rt jugular CVC for 3L Trialysis temp HDC---- same venous access. Type of Anesthesia Type of Anesthesia Local Estimated Blood Loss EBL: Minimal Specimens Specimans Rt jugular 7F 3L 20cm CVC removed and discarded Drain/Tubes Drains/Tubes Rt jugular 13F 3L 20cm Trialysis temp HDC inserted Condition of Patient Condition of Patient No change. Sedated on vent. Disposition Disposition Stat pCXR requested for 3L temp HDC position. Full report to follow. LULA SKINNER MD Aug 05, 2016 10:23
--- NOTE | 2016-08-05 10:28 | PDOC ---
PROGRESS NOTES Subjective Subjective receiving hemodialysis catheter now. will receive cryoprecipitate and FFP today for oozing from EC fistula. will be dialyzed today. discussed with dr. bruce nesbitt. lab and cxr reviewed. lung infiltrates improved. 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 off pressors acute hypoxic respiratory failure. intubated on ventilator metabolic encephalopathy acute kidney injury due to ATN from sepsis. . bilateral lung infiltrates improved. disseminated intravascular coagulation thrombocytopenia due to platelet antibody and sepsis picc associated fungemia with sepsis and shock 4. Enterocutaneous fistula. 5. Enterovesical fistula. 6. Anemia of chronic disease. 7. Moderately severe protein calorie malnutrition. (1) Abdominal pain Status: Acute (2) Enterocutaneous fistula Status: Acute (3) Sepsis Status: Acute (4) Urinary tract infection Status: Acute (5) UTI (urinary tract infection) Status: Acute Plan Plan of Care placement of hemodialysis catheter today hemodialysis today cryoprecipitate and FFP today continue iv micafungin and tygacil. TPN Comment Review of Relevant I have reviewed the following items lucila (where applicable) has been applied. Labs Laboratory Tests Test 08/03/16 12:51 08/03/16 17:25 08/04/16 00:51 08/04/16 06:13 Glucose (Fingerstick) 134mg/dL (70-99) 151mg/dL (70-99) 162mg/dL (70-99) White Blood Count 7.6x10^3/uL (4.0-11.0) Red Blood Count 2.93x10^6/uL (3.50-5.40) Hemoglobin 7.6g/dL (12.0-15.5) Hematocrit 23.4% (36.0-47.0) Mean Corpuscular Volume 80fL (79-100) Mean Corpuscular Hemoglobin 26pg (25-35) Mean Corpuscular Hemoglobin Concent 33g/dL (31-37) Red Cell Distribution Width 19.9% (11.5-14.5) Platelet Count 43x10^3/uL (140-400) Neutrophils (%) (Auto) 81% (31-73) Lymphocytes (%) (Auto) 12% (24-48) Monocytes (%) (Auto) 7% (0-9) Eosinophils (%) (Auto) 0% (0-3) Basophils (%) (Auto) 0% (0-3) Neutrophils # (Auto) 6.2x10^3uL (1.8-7.7) Lymphocytes # (Auto) 0.9x10^3/uL (1.0-4.8) Monocytes # (Auto) 0.5x10^3/uL (0.0-1.1) Eosinophils # (Auto) 0.0x10^3/uL (0.0-0.7) Basophils # (Auto) 0.0x10^3/uL (0.0-0.2) Reticulocyte Count (auto) 0.3% (0.5-2.5) Haptoglobin 113mg/dL (34-200) Prothrombin Time 28.7SEC (11.7-14.0) Prothromb Time International Ratio 2.9 (0.8-1.1) Fibrinogen < 60mg/dL (200-440) Sodium Level 147mmol/L (136-145) Potassium Level 3.6mmol/L (3.5-5.1) Chloride Level 108mmol/L (98-107) Carbon Dioxide Level 27mmol/L (21-32) Anion Gap 12 (6-14) Blood Urea Nitrogen 82mg/dL (7-20) Creatinine 1.9mg/dL (0.6-1.0) Estimated GFR (Cockcroft-Gault) 32.5 BUN/Creatinine Ratio 43 (6-20) Glucose Level 220mg/dL (70-99) Calcium Level 8.0mg/dL (8.5-10.1) Phosphorus Level 5.0mg/dL (2.6-4.7) Magnesium Level 3.4mg/dL (1.8-2.4) Total Bilirubin 5.5mg/dL (0.2-1.0) Aspartate Amino Transf (AST/SGOT) 31U/L (15-37) Alanine Aminotransferase (ALT/SGPT) 25U/L (14-59) Alkaline Phosphatase 114U/L (46-116) Lactate Dehydrogenase 360U/L (81-234) Total Protein 5.8g/dL (6.4-8.2) Albumin 2.5g/dL (3.4-5.0) Albumin/Globulin Ratio 0.8 (1.0-1.7) Test 08/04/16 06:21 08/04/16 07:11 08/04/16 11:03 08/04/16 17:49 Glucose (Fingerstick) 214mg/dL (70-99) 161mg/dL (70-99) 194mg/dL (70-99) O2 Saturation 99% (92-99) Arterial Blood pH 7.48 (7.35-7.45) Arterial Blood pH (Temp corrected) 7.48 Arterial Blood pCO2 at Patient Temp 35mmHg (35-46) Arterial Blood pCO2 (Temp correct) 34mmHg Arterial Blood pO2 at Patient Temp 240mmHg (65-108) Arterial Blood pO2 (Temp corrected) 239mmHg Arterial Blood HCO3 25mmol/L (21-28) Arterial Blood Base Excess 2mmol/L (-3-3) FiO2 50 Test 08/05/16 00:00 08/05/16 05:30 08/05/16 05:32 08/05/16 08:00 Glucose (Fingerstick) 190mg/dL (70-99) 186mg/dL (70-99) White Blood Count 7.5x10^3/uL (4.0-11.0) Red Blood Count 3.02x10^6/uL (3.50-5.40) Hemoglobin 7.7g/dL (12.0-15.5) Hematocrit 23.8% (36.0-47.0) Mean Corpuscular Volume 79fL (79-100) Mean Corpuscular Hemoglobin 26pg (25-35) Mean Corpuscular Hemoglobin Concent 32g/dL (31-37) Red Cell Distribution Width 20.2% (11.5-14.5) Platelet Count 46x10^3/uL (140-400) Neutrophils (%) (Auto) 83% (31-73) Lymphocytes (%) (Auto) 10% (24-48) Monocytes (%) (Auto) 7% (0-9) Eosinophils (%) (Auto) 0% (0-3) Basophils (%) (Auto) 0% (0-3) Neutrophils # (Auto) 6.3x10^3uL (1.8-7.7) Lymphocytes # (Auto) 0.8x10^3/uL (1.0-4.8) Monocytes # (Auto) 0.5x10^3/uL (0.0-1.1) Eosinophils # (Auto) 0.0x10^3/uL (0.0-0.7) Basophils # (Auto) 0.0x10^3/uL (0.0-0.2) Prothrombin Time 36.0SEC (11.7-14.0) Prothromb Time International Ratio 3.9 (0.8-1.1) Fibrinogen < 60mg/dL (200-440) Sodium Level 143mmol/L (136-145) Potassium Level 3.5mmol/L (3.5-5.1) Chloride Level 108mmol/L (98-107) Carbon Dioxide Level 25mmol/L (21-32) Anion Gap 10 (6-14) Blood Urea Nitrogen 79mg/dL (7-20) Creatinine 1.8mg/dL (0.6-1.0) Estimated GFR (Cockcroft-Gault) 34.6 Glucose Level 210mg/dL (70-99) Lactic Acid Level 2.1mmol/L (0.4-2.0) Calcium Level 8.5mg/dL (8.5-10.1) Phosphorus Level 5.1mg/dL (2.6-4.7) Magnesium Level 3.1mg/dL (1.8-2.4) O2 Saturation 99% (92-99) Arterial Blood pH 7.47 (7.35-7.45) Arterial Blood pCO2 at Patient Temp 32mmHg (35-46) Arterial Blood pO2 at Patient Temp 199mmHg (65-108) Arterial Blood HCO3 23mmol/L (21-28) Arterial Blood Base Excess -1mmol/L (-3-3) FiO2 40 Laboratory Tests Test 08/04/16 11:03 08/04/16 17:49 08/05/16 00:00 08/05/16 05:30 Glucose (Fingerstick) 161mg/dL (70-99) 194mg/dL (70-99) 190mg/dL (70-99) White Blood Count 7.5x10^3/uL (4.0-11.0) Red Blood Count 3.02x10^6/uL (3.50-5.40) Hemoglobin 7.7g/dL (12.0-15.5) Hematocrit 23.8% (36.0-47.0) Mean Corpuscular Volume 79fL (79-100) Mean Corpuscular Hemoglobin 26pg (25-35) Mean Corpuscular Hemoglobin Concent 32g/dL (31-37) Red Cell Distribution Width 20.2% (11.5-14.5) Platelet Count 46x10^3/uL (140-400) Neutrophils (%) (Auto) 83% (31-73) Lymphocytes (%) (Auto) 10% (24-48) Monocytes (%) (Auto) 7% (0-9) Eosinophils (%) (Auto) 0% (0-3) Basophils (%) (Auto) 0% (0-3) Neutrophils # (Auto) 6.3x10^3uL (1.8-7.7) Lymphocytes # (Auto) 0.8x10^3/uL (1.0-4.8) Monocytes # (Auto) 0.5x10^3/uL (0.0-1.1) Eosinophils # (Auto) 0.0x10^3/uL (0.0-0.7) Basophils # (Auto) 0.0x10^3/uL (0.0-0.2) Prothrombin Time 36.0SEC (11.7-14.0) Prothromb Time International Ratio 3.9 (0.8-1.1) Fibrinogen < 60mg/dL (200-440) Sodium Level 143mmol/L (136-145) Potassium Level 3.5mmol/L (3.5-5.1) Chloride Level 108mmol/L (98-107) Carbon Dioxide Level 25mmol/L (21-32) Anion Gap 10 (6-14) Blood Urea Nitrogen 79mg/dL (7-20) Creatinine 1.8mg/dL (0.6-1.0) Estimated GFR (Cockcroft-Gault) 34.6 Glucose Level 210mg/dL (70-99) Lactic Acid Level 2.1mmol/L (0.4-2.0) Calcium Level 8.5mg/dL (8.5-10.1) Phosphorus Level 5.1mg/dL (2.6-4.7) Magnesium Level 3.1mg/dL (1.8-2.4) Test 08/05/16 05:32 08/05/16 08:00 Glucose (Fingerstick) 186mg/dL (70-99) O2 Saturation 99% (92-99) Arterial Blood pH 7.47 (7.35-7.45) Arterial Blood pCO2 at Patient Temp 32mmHg (35-46) Arterial Blood pO2 at Patient Temp 199mmHg (65-108) Arterial Blood HCO3 23mmol/L (21-28) Arterial Blood Base Excess -1mmol/L (-3-3) FiO2 40 Microbiology 08/01/16 Blood Culture - Preliminary, Resulted NO GROWTH AFTER 4 DAYS 07/15/16 Urine Culture - Final, Complete 07/15/16 Urine Culture Result 1 (ROYA) - Final, Complete 07/15/16 Urine Culture Result 2 (ROYA) - Final, Complete 07/15/16 Antimicrobic Susceptibility - Final, Complete 07/29/16 Aerobic Culture - Final, Complete 07/29/16 Aerobic Culture Result 1 (ROYA) - Final, Complete Medications Current Medications Piperacillin Sod/ Tazobactam Sod/ Sodium Chloride (Zosyn/Iv Sodium Chloride 0.9 % 100ml) 100 ml @ 200 mls/hr 1X ONCE IV Last administered on 07/15/16 22:56; Start 07/15/16 at 22:00; Stop 07/15/16 at 22:29; Status DC Fentanyl Citrate 50 mcg 50 mcg PRN Q15MIN PRN IV PAIN GREATER THAN 3/10 Last administered on 07/16/16 00:30; Start 07/15/16 at 21:45; Stop 07/16/16 at 02:00; Status DC Sodium Chloride 1,000 ml @ 1,000 mls/hr 1X ONCE IV Last administered on 21:59; Start 07/15/16 at 22:00; Stop 07/15/16 at 22:59; Status DC Sodium Chloride (Iv Sodium Chloride 0.9% 500ml Bag) 500 ml @ 500 mls/hr 1X ONCE IV Last administered on 07/15/16 22:00; Start 07/15/16 at 22:00; Stop at 22:59; Status DC Ondansetron HCl (Zofran) 4 mg PRN Q8HRS PRN IV NAUSEA/VOMITING; Start 07/15/16 at 23:30; Stop 07/16/16 at 08:52; Status DC Fentanyl Citrate 50 mcg 50 mcg PRN Q2HR PRN IV SEVERE PAIN Last administered on 07/16/16 08:10; Start 07/15/16 at 23:30; Stop 07/16/16 at 08:52; Status DC Sodium Chloride (Iv Sodium Chloride 0.9% 1000ml Bag) 1,000 ml @ 150 mls/hr Q6H40M IV Last administered on 07/15/16 02:00; Start 07/15/16 at 23:45; Stop 07/16/16 at 08:52; Status DC Acetaminophen (Tylenol) 650 mg PRN Q4HRS PRN PO FEVER; Start 07/15/16 at 23:30; Stop 07/16/16 at 23:29; Status DC Info (Do NOT chart on this placeholder) 1 each PRN DAILY PRN MC NEEDS VERIFICATION; Start 07/16/16 at 03:00; Status Cancel Acetaminophen 650 mg 650 mg PRN Q4HRS PRN PO MILD PAIN / TEMP Last administered on 07/28/16 07:42; Start 07/16/16 at 08:45; Stop 07/29/16 at 08:33 ; Status DC Piperacillin Sod/ Tazobactam Sod 3.375 gm/Sodium Chloride 50 ml @ 100 mls/hr Q6HRS IV Last administered on 07/18/16 05:50; Start 07/16/16 at 10:00; Stop 07/18 at 13:28; Status DC Linezolid (Zyvox Premix) 300 ml @ 300 mls/hr Q12HR IV Last administered on 07/18 08:34; Start 07/16/16 at 10:00; Stop 07/18/16 at 13:28; Status DC Hydromorphone HCl (Dilaudid) 2 mg PRN Q4HRS PRN IV MODERATE PAIN Last administered on 07/28/16 23:33; Start 07/16/16 at 08:45 Hydromorphone HCl (Dilaudid) 4 mg PRN Q4HRS PRN IV SEVERE PAIN Last administered on 07/30/16 09:23; Start 07/16/16 at 08:45; Stop 07/31/16 at 15:01 ; Status DC Pantoprazole Sodium (Protonix) 40 mg DAILYAC PO Last administered on 07/27/16 11:11; Start 07/16/16 at 09:30; Stop 07/29/16 at 08:44; Status DC Hyoscyamine (Anaspaz) 0.125 mg Q6HRS PO Last administered on 07/20/16 05:20; Start 07/16/16 at 12:00; Stop 07/20/16 at 08:58; Status DC Phenazopyridine HCl (Pyridium) 200 mg TID PO Last administered on 07/20/16 08: 25; Start 07/16/16 at 09:30; Stop 07/20/16 at 08:58; Status DC Lorazepam (Ativan) 0.5 mg PRN BID PRN PO ANXIETY / AGITATION Last administered on 07/29/16 02:16; Start 07/16/16 at 08:45; Stop 07/31/16 at 15:01; Status DC Simethicone (Gas-X) 80 mg PRN Q4HRS PRN PO GAS / BLOATING Last administered on 07/24/16 22:30; Start 07/16/16 at 08:45; Stop 07/31/16 at 15:01; Status DC Zolpidem Tartrate 5 mg 5 mg PRN QHS PRN PO INSOMNIA Last administered on 23:14; Start 07/16/16 at 08:45; Stop 07/31/16 at 15:01; Status DC Potassium Chloride/Dextrose/ Sod Cl 1,000 ml @ 80 mls/hr [id number] IV Last administered on 07/16/16 10:54; Start 07/16/16 at 09:30; Stop 07/16/16 at 21:59; Status DC Fluconazole/ Sodium Chloride (Diflucan 200mg/ 100ml Premix) 100 ml @ 100 mls/ hr Q24H IV Last administered on 07/18/16 11:43; Start 07/16/16 at 11:00; Stop at 13:28; Status DC Info 1 each 1 each PRN DAILY PRN MC SEE COMMENTS Last administered on 12:41; Start 07/16/16 at 10:00; Stop 08/01/16 at 11:24; Status DC Sodium Chloride 220 meq/Sodium Acetate 90 meq/ Potassium Chloride 50 meq/ Potassium Acetate 15 meq/Potassium Phosphate 10 mmol/ Magnesium Sulfate 50 meq/ Calcium Gluconate 6 meq/ Multivitamins/ Minerals 10 ml/ Chromium/Copper/ Manganese/Seleni/ Zn 1 ml/Total Parenteral Nutrition/Amino Acids/Dextro... 1, 920 ml @ 80 mls/hr TPN CONT IV ; Start 07/16/16 at 22:00; Stop 07/16/16 at 22:00 ; Status DC Sodium Chloride/ Sodium Acetate/ Potassium Chloride/ Potassium Acetate/ Potassium Phosphate/ Magnesium Sulfate/ Calcium Gluconate/ Multivitamins/ Minerals/Chromium/ Copper/Manganese/ Seleni/Zn/Total Parenteral Nutrition/Amino Acids/Dextrose/ Fat Emulsion Intravenous (Sodium Chlori... 1,820 ml @ 75.833 mls/ hr TPN CONT IV Last administered on 07/16/16 21:03; Start 07/16/16 at 22: 00; Stop 07/17/16 at 21:59; Status DC Ondansetron HCl (Zofran) 4 mg PRN Q6HRS PRN IV NAUSEA/VOMITING Last administered on 07/21/16 08:48; Start 07/16/16 at 17:15; Stop 07/31/16 at 15:01; Status DC Diphenhydramine HCl (Benadryl) 25 mg PRN Q6HRS PRN PO ITCHING Last administered on 07/25/16 23:38; Start 07/16/16 at 17:45; Stop 07/31/16 at 15:01 ; Status DC Lidocaine (Xylocaine) 1 sang BID TP Last administered on 08/04/16 20:44; Start 07/17/16 at 09:00 Zinc Oxide 1 sang 1 sang BID TP Last administered on 08/04/16 20:44; Start at 09:30 Sodium Chloride/ Sodium Acetate/ Potassium Chloride/ Potassium Acetate/ Potassium Phosphate/ Magnesium Sulfate/ Calcium Gluconate/ Multivitamins/ Minerals/Chromium/ Copper/Manganese/ Seleni/Zn/Total Parenteral Nutrition/Amino Acids/Dextrose/ Fat Emulsion Intravenous (Sodium Chlori... 1,920 ml @ 80 mls/ hr TPN CONT IV Last administered on 07/17/16 22:13; Start 07/17/16 at 22:00; Stop 07/18/16 at 21:59; Status DC Furosemide 40 mg 40 mg 1X ONCE IVP Last administered on 07/18/16 11:43; Start 07/18/16 at 11:00; Stop 07/18/16 at 11:07; Status DC Sodium Chloride 220 meq/Sodium Acetate 90 meq/ Potassium Chloride 50 meq/ Potassium Acetate 15 meq/Potassium Phosphate 10 mmol/ Magnesium Sulfate 50 meq/ Calcium Gluconate 3 meq/ Multivitamins/ Minerals 10 ml/ Chromium/Copper/ Manganese/Seleni/ Zn 1 ml/Total Parenteral Nutrition/Amino Acids/Dextro... 1, 920 ml @ 80 mls/hr TPN CONT IV Last administered on 07/19/16 00:03; Start 07/18/16 at 22:00; Stop 07/19/16 at 21:59; Status DC Meropenem 1 gm/ Sodium Chloride 100 ml @ 200 mls/hr Q8HRS IV Last administered on 07/20/16 05:21; Start 07/18/16 at 14:00; Stop 07/20/16 at 11:25; Status DC Micafungin Sodium 100 mg/Dextrose 100 ml @ 100 mls/hr Q24H IV Last administered on 07/19/16 15:05; Start 07/18/16 at 14:00; Stop 07/20/16 at 11:25; Status DC Daptomycin/Sodium Chloride (Cubicin/Iv Sodium Chloride 0.9% 50ml) 50 ml @ 100 mls/hr Q24H IV Last administered on 07/19/16 16:56; Start 07/18/16 at 15:00; Stop 07/20/16 at 11:25; Status DC Alteplase, Recombinant (Cathflo) 2 mg 1X ONCE INT CAT Last administered on 07/19 06:24; Start 07/19/16 at 07:00; Stop 07/19/16 at 07:01; Status DC Gentamicin Sulfate 1 each 1 each PRN DAILY PRN MC SEE COMMENTS Last administered on 07/25/16 15:31; Start 07/19/16 at 12:15; Stop 07/25/16 at 16:14 ; Status DC Gentamicin Sulfate/Sodium Chloride (Iv Sodium Chloride 0.9% 100ml) 106.75 ml @ 106.75 mls/hr Q24H IV Last administered on 07/25/16 15:31; Start 07/19/16 at 13 :00; Stop 07/25/16 at 16:12; Status DC Gentamicin Sulfate 1 each 1 each 1X ONCE MC Last administered on 07/19/16 23: 00; Start 07/19/16 at 23:00; Stop 07/19/16 at 23:01; Status DC Sodium Chloride/ Sodium Acetate/ Potassium Chloride/ Potassium Acetate/ Potassium Phosphate/ Magnesium Sulfate/ Calcium Gluconate/ Multivitamins/ Minerals/Chromium/ Copper/Manganese/ Seleni/Zn/Total Parenteral Nutrition/Amino Acids/Dextrose/ Fat Emulsion Intravenous (Sodium Chlori... 1,920 ml @ 80 mls/ hr TPN CONT IV Last administered on 07/19/16 20:51; Start 07/19/16 at 22:00; Stop 07/20/16 at 21:59; Status DC Hyoscyamine (Anaspaz) 0.125 mg PRN Q6HRS PRN PO BLADDER SPASM; Start 07/20/16 at 09:00; Stop 07/31/16 at 15:01; Status DC Phenazopyridine HCl 200 mg 200 mg PRN TID PRN PO BLADDER SPASM Last administered on 07/21/16 20:14; Start 07/20/16 at 09:00; Stop 07/31/16 at 15:01; Status DC Linezolid 300 ml @ 300 mls/hr Q12HR IV Last administered on 07/25/16 09:02; Start 07/20/16 at 12:00; Stop 07/25/16 at 16:12; Status DC Sodium Chloride 220 meq/Sodium Acetate 90 meq/ Potassium Chloride 50 meq/ Potassium Acetate 15 meq/Potassium Phosphate 10 mmol/ Magnesium Sulfate 50 meq/ Calcium Gluconate 3 meq/ Multivitamins/ Minerals 10 ml/ Chromium/Copper/ Manganese/Seleni/ Zn 1 ml/Total Parenteral Nutrition/Amino Acids/Dextro... 1, 920 ml @ 80 mls/hr TPN CONT IV Last administered on 07/20/16 21:30; Start 07/20/16 at 22:00; Stop 07/21/16 at 21:59; Status DC Sodium Chloride/ Sodium Acetate/ Potassium Chloride/ Potassium Acetate/ Potassium Phosphate/ Magnesium Sulfate/ Multivitamins/ Minerals/Chromium/ Copper /Manganese/ Seleni/Zn/Total Parenteral Nutrition/Amino Acids/Dextrose/ Fat Emulsion Intravenous (Sodium Chloride/ Potass... 1,920 ml @ 80 mls/hr TPN CONT IV Last administered on 07/21/16 22:05; Start 07/21/16 at 22:00; Stop at 21:59; Status DC Alteplase, Recombinant 2 mg 2 mg PRN DAILY PRN INT CAT INFLAMMATION Last administered on 07/27/16 11:31; Start 07/21/16 at 15:00 Sodium Chloride 220 meq/Sodium Acetate 90 meq/ Potassium Chloride 50 meq/ Potassium Acetate 15 meq/Potassium Phosphate 10 mmol/ Magnesium Sulfate 50 meq/ Multivitamins/ Minerals 10 ml/ Chromium/Copper/ Manganese/Seleni/ Zn 1 ml/Total Parenteral Nutrition/Amino Acids/Dextrose/ Fat Emuls... 1,920 ml @ 80 mls/hr TPN CONT IV Last administered on 07/22/16 20:53; Start 07/22/16 at 22:00; Stop 07/23/16 at 21:59; Status DC Sodium Chloride/ Sodium Acetate/ Potassium Chloride/ Potassium Acetate/ Potassium Phosphate/ Magnesium Sulfate/ Multivitamins/ Minerals/Chromium/ Copper /Manganese/ Seleni/Zn/Total Parenteral Nutrition/Amino Acids/Dextrose/ Fat Emulsion Intravenous (Sodium Chloride/ Potass... 1,920 ml @ 80 mls/hr TPN CONT IV Last administered on 07/23/16 21:16; Start 07/23/16 at 22:00; Stop 07/24 at 21:59; Status DC Gentamicin Sulfate 1 each 1 each 1X ONCE MC ; Start 07/23/16 at 22:00; Stop 07/23 at 22:01; Status Cancel Sodium Chloride/ Sodium Acetate/ Potassium Chloride/ Potassium Acetate/ Potassium Phosphate/ Magnesium Sulfate/ Multivitamins/ Minerals/Chromium/ Copper /Manganese/ Seleni/Zn/Total Parenteral Nutrition/Amino Acids/Dextrose/ Fat Emulsion Intravenous (Sodium Chloride/ Potass... 1,920 ml @ 80 mls/hr TPN CONT IV Last administered on 07/24/16 21:15; Start 07/24/16 at 22:00; Stop 04/30 at 21:59; Status DC Gentamicin Sulfate 1 each 1X ONCE MC ; Start 07/25/16 at 12:30; Stop 07/25/16 at 12:31; Status Cancel Amlodipine Besylate 5 mg 5 mg DAILY PO Last administered on 07/27/16 11:12; Start 07/25/16 at 12:00; Stop 07/29/16 at 08:44; Status DC Sodium Chloride 220 meq/Sodium Acetate 90 meq/ Potassium Chloride 30 meq/ Potassium Acetate 15 meq/Potassium Phosphate 10 mmol/ Magnesium Sulfate 50 meq/ Multivitamins/ Minerals 10 ml/ Chromium/Copper/ Manganese/Seleni/ Zn 1 ml/Total Parenteral Nutrition/Amino Acids/Dextrose/ Fat Emuls... 1,920 ml @ 80 mls/hr TPN CONT IV Last administered on 07/25/16 22:25; Start 07/25/16 at 22:00; Stop 07/26/16 at 21:59; Status DC Sodium Chloride/ Sodium Acetate/ Potassium Chloride/ Potassium Acetate/ Potassium Phosphate/ Magnesium Sulfate/ Multivitamins/ Minerals/Chromium/ Copper /Manganese/ Seleni/Zn/Total Parenteral Nutrition/Amino Acids/Dextrose/ Fat Emulsion Intravenous (Sodium Chloride/ Potass... 1,920 ml @ 80 mls/hr TPN CONT IV Last administered on 07/26/16 23:16; Start 07/26/16 at 22:00; Stop at 21:59; Status DC Furosemide 20 mg 20 mg 1X ONCE IVP Last administered on 07/27/16 11:31; Start 07/27/16 at 09:00; Stop 07/27/16 at 09:01; Status DC Daptomycin 340 mg/ Sodium Chloride 50 ml @ 100 mls/hr Q24H IV Last administered on 07/29/16 15:05; Start 07/27/16 at 13:00; Stop 07/30/16 at 07:25 ; Status DC Piperacillin Sod/ Tazobactam Sod 3.375 gm/Sodium Chloride 50 ml @ 100 mls/hr Q6HRS IV Last administered on 07/30/16 05:30; Start 07/27/16 at 12:30; Stop at 07:25; Status DC Fluconazole/ Sodium Chloride 100 ml @ 100 mls/hr Q24H IV Last administered on 07/28/16 13:32; Start 07/27/16 at 13:00; Stop 07/29/16 at 00:53; Status DC Sodium Chloride 1,000 ml @ 1,000 mls/hr 1X ONCE IV Last administered on 12:34; Start 07/27/16 at 12:30; Stop 07/27/16 at 13:29; Status DC Sodium Chloride 220 meq/Sodium Acetate 90 meq/ Potassium Chloride 30 meq/ Potassium Acetate 15 meq/Potassium Phosphate 10 mmol/ Magnesium Sulfate 45 meq/ Multivitamins/ Minerals 10 ml/ Chromium/Copper/ Manganese/Seleni/ Zn 1 ml/Total Parenteral Nutrition/Amino Acids/Dextrose/ Fat Emuls... 1,920 ml @ 80 mls/hr TPN CONT IV Last administered on 07/27/16 22:38; Start 07/27/16 at 22:00; Stop 07/28/16 at 21:59; Status DC Sodium Chloride (Iv Sodium Chloride 0.9% 1000ml Bag) 1,000 ml @ 45 mls/hr [id number] IV Last administered on 07/28/16 03:24; Start 07/27/16 at 17:00; Stop 07/28/16 at 10:27; Status DC Acetaminophen 650 mg 650 mg PRN Q6HRS PRN MT fever Last administered on 03:57; Start 07/27/16 at 16:30; Stop 07/29/16 at 08:33; Status DC Sodium Chloride 1,000 ml @ 427.5 mls/ hr Q2H21M IV Last administered on 19:30; Start 07/27/16 at 19:30; Stop 07/27/16 at 23:30; Status DC Sodium Chloride 220 meq/Sodium Acetate 90 meq/ Potassium Chloride 30 meq/ Potassium Acetate 15 meq/Potassium Phosphate 10 mmol/ Magnesium Sulfate 45 meq/ Multivitamins/ Minerals 10 ml/ Chromium/Copper/ Manganese/Seleni/ Zn 1 ml/Total Parenteral Nutrition/Amino Acids/Dextrose/ Fat Emuls... 1,920 ml @ 80 mls/hr TPN CONT IV Last administered on 07/28/16 21:43; Start 07/28/16 at 22:00; Stop 07/29/16 at 21:59; Status DC Micafungin Sodium/ Dextrose (Mycamine) 100 ml @ 100 mls/hr Q24H IV Last administered on 08/05/16 01:16; Start 07/29/16 at 01:00 Lorazepam (Ativan) 0.05 mg PRN Q4HRS PRN IV ANXIETY / AGITATION; Start at 02:30; Stop 07/29/16 at 02:48; Status DC Lorazepam (Ativan) 0.5 mg PRN Q4HRS PRN IV ANXIETY / AGITATION Last administered on 07/29/16 03:18; Start 07/29/16 at 03:00 Acetaminophen (Tylenol) 650 mg PRN Q4HRS PRN MT MILD PAIN / TEMP; Start at 08:30 Ketorolac Tromethamine (Toradol) 30 mg PRN Q6HRS PRN IV PAIN/FEVER Last administered on 07/30/16 00:50; Start 07/29/16 at 08:30; Stop 07/30/16 at 13:01 ; Status DC Pantoprazole Sodium 40 mg 40 mg DAILYAC IVP Last administered on 08/04/16 08: 54; Start 07/29/16 at 09:00 Sodium Chloride 1,000 ml @ 45 mls/hr [id number] IV Last administered on 09:17; Start 07/29/16 at 08:45; Stop 07/31/16 at 15:01; Status DC Sodium Chloride/ Sodium Acetate/ Potassium Chloride/ Potassium Acetate/ Potassium Phosphate/ Magnesium Sulfate/ Multivitamins/ Minerals/Chromium/ Copper /Manganese/ Seleni/Zn/Total Parenteral Nutrition/Amino Acids/Dextrose/ Fat Emulsion Intravenous (Sodium Chloride/ Potass... 1,920 ml @ 80 mls/hr TPN CONT IV Last administered on 07/29/16 22:06; Start 07/29/16 at 22:00; Stop at 21:59; Status DC Lidocaine/Sodium Bicarbonate 20 ml 20 ml STK-MED ONCE IJ ; Start 07/29/16 at 13: 13; Stop 07/29/16 at 13:14; Status DC Heparin Sodium/ Sodium Chloride 500 ml @ As Directed STK-MED ONCE .ROUTE ; Start 07/29/16 at 13:13; Stop 07/29/16 at 13:14; Status DC Lidocaine/ Epinephrine (Xylocaine 1%-Epi 1:100,000) 20 ml STK-MED ONCE .ROUTE ; Start 07/29/16 at 13:22; Stop 07/29/16 at 13:23; Status DC Midazolam HCl (Versed) 5 mg STK-MED ONCE .ROUTE ; Start 07/29/16 at 13:32; Stop 07/29/16 at 13:33; Status DC Fentanyl Citrate (Fentanyl 5ml Vial) 250 mcg STK-MED ONCE .ROUTE ; Start at 13:32; Stop 07/29/16 at 13:33; Status DC Heparin Sodium/ Sodium Chloride 1,000 unit 1X ONCE IART Last administered on 13:45; Start 07/29/16 at 13:45; Stop 07/29/16 at 13:48; Status DC Midazolam HCl (Versed) 5 mg 1X ONCE IV Last administered on 07/29/16 13:45; Start 07/29/16 at 13:45; Stop 07/29/16 at 13:48; Status DC Fentanyl Citrate (Fentanyl 5ml Vial) 250 mcg 1X ONCE IV Last administered on 13:45; Start 07/29/16 at 13:45; Stop 07/29/16 at 13:48; Status DC Lidocaine/ Epinephrine 20 ml 20 ml 1X ONCE IJ Last administered on 07/29/16 13:45; Start 07/29/16 at 13:45; Stop 07/29/16 at 13:48; Status DC Sodium Chloride 220 meq/Sodium Acetate 90 meq/ Potassium Chloride 15 meq/ Potassium Acetate 30 meq/Potassium Phosphate 10 mmol/ Magnesium Sulfate 45 meq/ Multivitamins/ Minerals 10 ml/ Chromium/Copper/ Manganese/Seleni/ Zn 1 ml/Total Parenteral Nutrition/Amino Acids/Dextrose/ Fat Emuls... 1,920 ml @ 80 mls/hr TPN CONT IV ; Start 07/30/16 at 22:00; Stop 07/31/16 at 21:59; Status DC Norepinephrine Bitartrate 8 mg/ Sodium Chloride 258 ml @ 1.93 mls/hr 1X ONCE IV Last administered on 07/30/16 11:17; Start 07/30/16 at 11:15; Stop at 15:43; Status DC Norepinephrine Bitartrate/Sodium Chloride (Levophed Vial/ Iv Sodium Chloride 0.9 % 250ml) 258 ml @ 0 mls/hr CONT PRN IV SEE I/O RECORD Last administered on 08/02 19:54; Start 07/30/16 at 11:15; Stop 08/04/16 at 09:29; Status DC Furosemide 60 mg 60 mg 1X ONCE IVP Last administered on 07/30/16 11:14; Start 07/30/16 at 11:15; Stop 07/30/16 at 11:16; Status DC Sodium Chloride 500 ml @ 500 mls/hr Q1H IV Last administered on 07/30/16 17: 04; Start 07/30/16 at 14:30; Stop 07/30/16 at 15:29; Status DC Albumin Human 100 ml @ 100 mls/hr Q8HRS IV Last administered on 07/31/16 05: 37; Start 07/30/16 at 14:30; Stop 07/31/16 at 06:59; Status DC Furosemide/Sodium Chloride (Lasix Drip/Iv Sodium Chloride 0.9% 100ml) 100 ml @ 0 mls/hr CONT PRN IV SEE I/O RECORD Last administered on 07/31/16 03:17; Start 07/30/16 at 14:30; Stop 08/01/16 at 13:19; Status DC Ondansetron HCl (Zofran) 8 mg PRN Q8HRS PRN IV NAUSEA/VOMITING Last administered on 07/30/16 14:38; Start 07/30/16 at 14:30 Sodium Bicarbonate 50 meq 50 meq 1X ONCE IV Last administered on 07/30/16 14: 43; Start 07/30/16 at 14:30; Stop 07/30/16 at 14:31; Status DC Heparin Sodium/ Sodium Chloride 500 ml @ As Directed STK-MED ONCE .ROUTE ; Start 07/30/16 at 14:49; Stop 07/30/16 at 14:50; Status DC Lidocaine HCl 20 ml STK-MED ONCE .ROUTE ; Start 07/30/16 at 14:49; Stop at 14:50; Status DC Midazolam HCl (Versed) 2 mg STK-MED ONCE .ROUTE ; Start 07/30/16 at 15:19; Stop 07/30/16 at 15:20; Status DC Heparin Sodium/ Sodium Chloride 1,000 unit 1X ONCE IART Last administered on 15:44; Start 07/30/16 at 15:45; Stop 07/30/16 at 15:46; Status DC Midazolam HCl (Versed) 1.5 mg 1X ONCE IV Last administered on 07/30/16 15:44 ; Start 07/30/16 at 15:45; Stop 07/30/16 at 15:46; Status DC Lidocaine HCl 20 ml 1X ONCE IJ Last administered on 07/30/16 15:44; Start at 15:45; Stop 07/30/16 at 15:46; Status DC Heparin Sodium (Porcine) 89476 unit 10,000 unit STK-MED ONCE .ROUTE ; Start at 15:54; Stop 07/30/16 at 15:55; Status DC Fentanyl Citrate 30 ml @ 0 mls/hr CONT PRN PRN IV PROTOCOL Last administered on 08/05/16 01:17; Start 07/30/16 at 16:45 Sodium Bicarbonate/ Dextrose 1,150 ml @ 125 mls/hr 1X ONCE IV Last administered on 07/30/16 18:34; Start 07/30/16 at 17:30; Stop 07/31/16 at 02:41 ; Status DC Succinylcholine Chloride 200 mg 200 mg STK-MED ONCE .ROUTE ; Start 07/30/16 at 19:47; Stop 07/30/16 at 19:48; Status DC Propofol 100 ml @ As Directed STK-MED ONCE IV ; Start 07/30/16 at 19:48; Stop 07/30/16 at 19:49; Status DC Midazolam HCl (Versed 100mg/ 100ml Premix) 100 ml @ 0 mls/hr CONT PRN IV SEE I/ O RECORD Last administered on 08/03/16 12:18; Start 07/30/16 at 21:15 Sodium Bicarbonate 50 meq 50 meq 1X ONCE IV Last administered on 07/30/16 22: 15; Start 07/30/16 at 22:30; Stop 07/30/16 at 22:31; Status DC Dopamine HCl/ Dextrose 250 ml @ 11.513 mls/ hr CONT PRN IV SEE I/O RECORD Last administered on 07/31/16 20:16; Start 07/30/16 at 22:15; Stop 08/04/16 at 09:29; Status DC Sodium Bicarbonate/ Dextrose 1,150 ml @ 125 mls/hr Q9H12M IV Last administered on 08/01/16 09:30; Start 07/31/16 at 03:00; Stop 08/01/16 at 13:19 ; Status DC Propofol (Diprivan) 1,000 mg STK-MED ONCE IV ; Start 07/30/16 at 20:00; Stop at 08:16; Status DC Succinylcholine Chloride 200 mg 200 mg STK-MED ONCE .ROUTE ; Start 07/30/16 at 20:00; Stop 07/31/16 at 08:16; Status DC Tigecycline 50 mg/ Sodium Chloride 50 ml @ 100 mls/hr Q12HR IV Last administered on 08/04/16 09:01; Start 07/31/16 at 21:00; Stop 08/04/16 at 10:00 ; Status DC Tigecycline/ Sodium Chloride (Tygacil/Iv Sodium Chloride 0.9% 100ml) 100 ml @ 200 mls/hr 1X ONCE IV Last administered on 07/31/16 09:22; Start 07/31/16 at 09:00; Stop 07/31/16 at 09:29; Status DC Darbepoetin Sarbjit 60 mcg 60 mcg [id number] SQ Last administered on 07/31/16 21:09 ; Start 07/31/16 at 21:00 Albumin Human 100 ml @ 100 mls/hr 1X ONCE IV Last administered on 07/31/16 11:40; Start 07/31/16 at 11:15; Stop 07/31/16 at 12:14; Status DC Albumin Human 100 ml @ 100 mls/hr 1X ONCE IV Last administered on 07/31/16 12:03; Start 07/31/16 at 11:15; Stop 07/31/16 at 12:14; Status DC Sodium Chloride (Iv Sodium Chloride 0.9% 1000ml Bag) 1,000 ml @ 1,000 mls/hr Q1H PRN IV hypotension; Start 07/31/16 at 11:33; Stop 07/31/16 at 17:32; Status DC Info (PHARMACY MONITORING -- do not chart) 1 each PRN DAILY PRN MC SEE COMMENTS ; Start 07/31/16 at 11:45 Info (PHARMACY MONITORING -- do not chart) 1 each PRN DAILY PRN MC SEE COMMENTS ; Start 07/31/16 at 11:45; Status UNV Hydrocortisone Sodium Succinate (Solu-Cortef) 100 mg Q8HRS IV Last administered on 08/04/16 06:16; Start 08/01/16 at 07:00; Stop 08/04/16 at 09:29 ; Status DC Albuterol/ Ipratropium (Duoneb) 3 ml RTQID NEB Last administered on 08/05/16 07:48; Start 08/01/16 at 08:00 Albuterol/ Ipratropium 3 ml 3 ml STK-MED ONCE .ROUTE Last administered on 07:34; Start 08/01/16 at 06:59; Stop 08/01/16 at 07:00; Status DC Sodium Chloride 1,000 ml @ 1,000 mls/hr Q1H PRN IV hypotension; Start 08/01/16 at 06:57; Stop 08/01/16 at 12:56; Status DC Albumin Human (Albuminar) 200 ml @ 200 mls/hr 1X PRN PRN IV Hypotension; Start 08/01/16 at 07:00; Stop 08/01/16 at 12:59; Status DC Info (PHARMACY MONITORING -- do not chart) 1 each PRN DAILY PRN MC SEE COMMENTS ; Start 08/01/16 at 07:00; Status UNV Info 1 each 1 each PRN DAILY PRN MC SEE COMMENTS Last administered on 14:00; Start 08/01/16 at 13:30 Sodium Chloride 220 meq/Sodium Acetate 90 meq/ Potassium Chloride 15 meq/ Potassium Acetate 30 meq/Potassium Phosphate 10 mmol/ Magnesium Sulfate 45 meq/ Multivitamins/ Minerals 10 ml/ Chromium/Copper/ Manganese/Seleni/ Zn 1 ml/Total Parenteral Nutrition/Amino Acids/Dextrose/ Fat Emuls... 1,920 ml @ 80 mls/hr TPN CONT IV Last administered on 08/01/16 21:56; Start 08/01/16 at 22:00; Stop 08/02/16 at 21:59; Status DC Potassium Chloride (KCl Premix 20meq) 50 ml @ 50 mls/hr Q1H IV Last administered on 08/01/16 19:05; Start 08/01/16 at 17:00; Stop 08/01/16 at 18:59 ; Status DC Insulin Aspart 0-6 UNITS TIDWMEALS SQ Last administered on 08/02/16 11:33; Start 08/02/16 at 12:00; Stop 08/02/16 at 14:34; Status DC Sodium Chloride 220 meq/Sodium Acetate 90 meq/ Potassium Chloride 15 meq/ Potassium Acetate 30 meq/Magnesium Sulfate 45 meq/ Multivitamins/ Minerals 10 ml / Chromium/Copper/ Manganese/Seleni/ Zn 1 ml/Total Parenteral Nutrition/Amino Acids/Dextrose/ Fat Emulsion Intravenous 1,920 ml @ 80 mls/hr TPN CONT IV Last administered on 08/02/16 21:34; Start 08/02/16 at 22:00; Stop 08/03/16 at 21:59; Status DC Levofloxacin/ Dextrose 150 ml @ 100 mls/hr 1X ONCE IV Last administered on 14:35; Start 08/02/16 at 14:00; Stop 08/02/16 at 15:29; Status DC Daptomycin/Sodium Chloride (Cubicin/Iv Sodium Chloride 0.9% 50ml) 50 ml @ 100 mls/hr ONCE ONCE IV Last administered on 08/02/16 14:34; Start 08/02/16 at 15 :00; Stop 08/02/16 at 15:29; Status DC Insulin Aspart 0-6 UNITS Q6HRS SQ Last administered on 08/05/16 05:39; Start 08/02/16 at 18:00 Sodium Chloride (Iv Sodium Chloride 0.9% 1000ml Bag) 1,000 ml @ 1,000 mls/hr Q1H PRN IV hypotension; Start 08/03/16 at 07:26; Stop 08/03/16 at 13:25; Status DC Diphenhydramine HCl (Benadryl) 25 mg 1X PRN PRN IV ITCHING; Start 08/03/16 at 07:30; Stop 08/04/16 at 07:29; Status DC Diphenhydramine HCl (Benadryl) 25 mg 1X PRN PRN IV ITCHING; Start 08/03/16 at 07:30; Stop 08/04/16 at 07:29; Status DC Sodium Chloride (Normal Saline Flush) 10 ml 1X PRN PRN IV AP catheter pack; Start 08/03/16 at 07:30; Stop 08/04/16 at 07:29; Status DC Sodium Chloride 10 ml 10 ml 1X PRN PRN IV INDUSTRIAL CHEMIST catheter pack; Start 08/03/16 at 07:30; Stop 08/04/16 at 07:29; Status DC Sodium Chloride (Iv Sodium Chloride 0.9% 1000ml Bag) 1,000 ml @ 400 mls/hr Q2H30M PRN IV PATENCY; Start 08/03/16 at 07:26; Stop 08/03/16 at 19:25; Status DC Info 1 each 1 each PRN DAILY PRN MC SEE COMMENTS; Start 08/03/16 at 07:30; Status UNV Albumin Human 200 ml @ 200 mls/hr Q2HR IV Last administered on 08/03/16 10:00 ; Start 08/03/16 at 08:44; Stop 08/03/16 at 10:59; Status DC Sodium Chloride 160 meq/Sodium Acetate 60 meq/ Potassium Chloride 15 meq/ Potassium Acetate 30 meq/Magnesium Sulfate 25 meq/ Multivitamins/ Minerals 10 ml / Chromium/Copper/ Manganese/Seleni/ Zn 1 ml/Total Parenteral Nutrition/Amino Acids/Dextrose/ Fat Emulsion Intravenous 1,500 ml @ 62.5 mls/hr TPN CONT IV Last administered on 08/03/16 22:52; Start 08/03/16 at 22:00; Stop 08/04/16 at 21:59; Status DC Levofloxacin/ Dextrose 100 ml @ 100 mls/hr 1X ONCE IV Last administered on 10:50; Start 08/04/16 at 07:30; Stop 08/04/16 at 08:30; Status DC Daptomycin 450 mg/ Sodium Chloride 50 ml @ 100 mls/hr ONCE ONCE IV Last administered on 08/04/16 09:55; Start 08/04/16 at 08:00; Stop 08/04/16 at 08:30 ; Status DC Tigecycline/ Sodium Chloride (Tygacil/Iv Sodium Chloride 0.9% 50ml) 50 ml @ 100 mls/hr Q12HR IV Last administered on 08/04/16 20:44; Start 08/04/16 at 21: 00 Hydrocortisone Sodium Succinate 50 mg 50 mg Q8HRS IV Last administered on 05:39; Start 08/04/16 at 14:00 Furosemide 100 mg/ Sodium Chloride 100 ml @ 0 mls/hr CONT PRN IV SEE I/O RECORD Last administered on 08/05/16 01:36; Start 08/04/16 at 11:30 Sodium Chloride 160 meq/Sodium Acetate 60 meq/ Potassium Chloride 15 meq/ Potassium Acetate 30 meq/Magnesium Sulfate 25 meq/ Multivitamins/ Minerals 10 ml / Chromium/Copper/ Manganese/Seleni/ Zn 1 ml/Total Parenteral Nutrition/Amino Acids/Dextrose/ Fat Emulsion Intravenous 1,500 ml @ 62.5 mls/hr TPN CONT IV Last administered on 08/04/16 21:45; Start 08/04/16 at 22:00 Sodium Chloride 1,000 ml @ 1,000 mls/hr Q1H PRN IV hypotension; Start 08/04/16 at 12:00; Stop 08/04/16 at 17:59; Status DC Sodium Chloride (Iv Sodium Chloride 0.9% 1000ml Bag) 1,000 ml @ 400 mls/hr Q2H30M PRN IV PATENCY; Start 08/04/16 at 12:00; Stop 08/04/16 at 23:59; Status DC Info 1 each 1 each PRN DAILY PRN MC SEE COMMENTS; Start 08/04/16 at 16:30; Status UNV Levofloxacin/ Dextrose 100 ml @ 100 mls/hr 1X ONCE IV ; Start 08/05/16 at 14: 00; Stop 08/05/16 at 14:59 Daptomycin/Sodium Chloride (Cubicin/Iv Sodium Chloride 0.9% 50ml) 50 ml @ 100 mls/hr 1X ONCE IV ; Start 08/05/16 at 14:00; Stop 08/05/16 at 14:29 Heparin Sodium (Porcine) 10,000 unit STK-MED ONCE .ROUTE ; Start 08/05/16 at 09: 35; Stop 08/05/16 at 09:36; Status DC Lidocaine/Sodium Bicarbonate 20 ml 20 ml STK-MED ONCE IJ ; Start 08/05/16 at 09: 36; Stop 08/05/16 at 09:37; Status DC Heparin Sodium/ Sodium Chloride 500 ml @ As Directed STK-MED ONCE .ROUTE ; Start 08/05/16 at 09:36; Stop 08/05/16 at 09:37; Status DC Lidocaine/Sodium Bicarbonate (Buffered Lidocaine 1%) 2 ml 1X ONCE IJ Last administered on 08/05/16 10:04; Start 08/05/16 at 10:00; Stop 08/05/16 at 10:02 ; Status DC Heparin Sodium/ Sodium Chloride 60 unit 1X ONCE IV Last administered on 10:04; Start 08/05/16 at 10:00; Stop 08/05/16 at 10:02; Status DC Heparin Sodium (Porcine) 2,800 unit 1X ONCE INT CAT Last administered on 10:04; Start 08/05/16 at 10:00; Stop 08/05/16 at 10:02; Status DC Active Scripts Active Dilaudid (Hydromorphone Hcl) 4 Mg Tablet 4 Mg PO Q6HRS Phenazopyridine Hcl 200 Mg Tablet 200 Mg PO PRN TID PRN FENTANYL 50mcg/hr (Fentanyl) 1 Each Patch.td72 1 Patch TD Q3DAYS Anaspaz (Hyoscyamine Sulfate) 0.125 Mg Tab.rapdis 0.125 Mg PO Q6HRS PRN Cefpodoxime Proxetil 200 Mg Tablet 200 Mg PO BID Sertraline Hcl 50 Mg Tablet 100 Mg PO DAILY 30 Days Protonix (Pantoprazole Sodium) 40 Mg Tablet.dr 1 Tab PO DAILY Zinc Oxide 56.7 Gm Oint...g. 1 Sang TP BID Lidocaine 35.44 Gm Oint...g. 1 Sang TP BID Ondansetron Odt (Ondansetron) 4 Mg Tab.rapdis 8 Mg PO PRN Q8HRS PRN Gas-X (Simethicone) 80 Mg Tab.chew 80 Mg PO PRN QID PRN Reported Lorazepam 0.5 Mg Tablet 0.5 Mg PO PRN BID PRN Vitals/I & O Vital Sign - Last 24 Hours 08/04/16 08/04/16 08/04/16 08/04/16 11:00 11:25 12:00 12:00 Pulse 94 Resp 24 B/P 129/57 126/59 Pulse Ox 100 100 O2 Delivery Ventilator Ventilator Mechanical Ventilator 08/04/16 08/04/16 08/04/16 08/04/16 12:00 13:00 13:35 14:00 Pulse 93 97 102 Resp 20 20 20 B/P 99/51 126/74 123/62 Pulse Ox 100 99 100 99 O2 Delivery Ventilator Ventilator Ventilator Ventilator 08/04/16 08/04/16 08/04/16 08/04/16 15:00 15:44 16:00 16:00 Temp 97.7 97.7 Pulse 100 99 Resp 26 25 B/P 115/64 114/62 Pulse Ox 99 100 99 O2 Delivery Ventilator Ventilator Ventilator Mechanical Ventilator 08/04/16 08/04/16 08/04/16 08/04/16 17:00 17:58 18:00 19:00 Temp 98.3 98.3 Pulse 106 97 96 Resp 25 23 20 B/P 119/54 120/64 120/52 Pulse Ox 99 99 99 100 O2 Delivery Ventilator Ventilator Ventilator Ventilator 08/04/16 08/04/16 08/04/16 08/04/16 20:00 20:00 20:00 20:20 Pulse 95 95 Resp 22 B/P 118/47 118/47 Pulse Ox 100 100 O2 Delivery Ventilator Mechanical Ventilator Ventilator 08/04/16 08/04/16 08/04/16 08/04/16 21:00 22:00 23:00 23:24 Pulse 98 92 92 Resp 20 21 20 B/P 111/55 105/47 113/52 Pulse Ox 100 100 100 100 O2 Delivery Ventilator Ventilator Ventilator Ventilator 08/04/16 08/05/16 08/05/16 08/05/16 23:59 00:00 00:00 01:00 Temp 97.5 97.5 Pulse 91 91 90 Resp 20 20 B/P 114/47 114/43 116/52 Pulse Ox 100 100 O2 Delivery Ventilator Mechanical Ventilator Ventilator 08/05/16 08/05/16 08/05/16 08/05/16 01:08 02:00 03:00 03:25 Pulse 92 94 Resp 20 20 B/P 131/57 136/60 Pulse Ox 100 100 100 99 O2 Delivery Ventilator Ventilator Ventilator Ventilator 08/05/16 08/05/16 08/05/16 08/05/16 03:43 04:00 04:00 05:00 Temp 97.8 97.8 Pulse 93 93 86 Resp 20 20 B/P 130/57 130/57 108/48 Pulse Ox 100 100 O2 Delivery Mechanical Ventilator Ventilator Ventilator 08/05/16 08/05/16 08/05/16 08/05/16 05:40 06:00 07:00 07:48 Pulse 84 90 Resp 20 20 B/P 126/53 140/64 Pulse Ox 100 100 100 100 O2 Delivery Ventilator Ventilator Ventilator Ventilator 08/05/16 08/05/16 08/05/16 08/05/16 08:00 08:00 08:00 08:15 Temp 98.0 98.0 Pulse 84 88 85 Resp 20 22 B/P 125/55 128/58 107/45 Pulse Ox 100 O2 Delivery Mechanical Ventilator Ventilator 08/05/16 08/05/16 08/05/16 08:30 09:00 09:19 Temp 98.0 98.0 Pulse 85 82 Resp 20 20 B/P 112/53 125/55 Pulse Ox 100 100 O2 Delivery Ventilator Ventilator Intake and Output 08/04/16 08/04/16 08/05/16 15:00 23:00 07:00 Intake Total 200 ml 789.95 ml 1540.6 ml Output Total 235 ml 185 ml 293 ml Balance -35 ml 604.95 ml 1247.6 ml BENITA LUTZ MD Aug 05, 2016 10:28
--- NOTE | 2016-08-05 10:28 | PDOC ---
Dialysis Progress Note Dialysis Note Dialysis Note Seen on Hemodialysis, tolerating treatment Okay for now Vitals on Hemodialysis: 124/63 91 General Appearance: SEdated and intubated Neck: min JVD + JVP Chest: CTA Aditya, rare rales Heart: S1 S2 Abdomen - Soft NTND; rare BS Extremities - ++ Edema ARF/ ATN : Dialysis as below F 180 NR 3.5 Hrs 4 K 2.5 Ca 140 Na 35 HC03 Qb 350 + Qd 500+ Heparin 0 Units Uf 2-3 Kgs or to dry weight as tolerated May give 25-50 gms of 25% Albumin if needed to maintain Hemodynamic stability Treatment plan reviewed and discussed with jewelry sales representative Vitals Vital Signs Vital Signs Date Time Temp Pulse Resp B/P Pulse Ox O2 Delivery O2 Flow Rate FiO2 08/05/16 09:19 100 Ventilator 08/05/16 09:00 82 20 125/55 08/05/16 08:30 98.0 98.0 08/04/16 03:55 50.0 Labs Last Labs Laboratory Tests Test 08/03/16 12:51 08/03/16 17:25 08/04/16 00:51 08/04/16 06:13 Glucose (Fingerstick) 134mg/dL (70-99) 151mg/dL (70-99) 162mg/dL (70-99) White Blood Count 7.6x10^3/uL (4.0-11.0) Red Blood Count 2.93x10^6/uL (3.50-5.40) Hemoglobin 7.6g/dL (12.0-15.5) Hematocrit 23.4% (36.0-47.0) Mean Corpuscular Volume 80fL (79-100) Mean Corpuscular Hemoglobin 26pg (25-35) Mean Corpuscular Hemoglobin Concent 33g/dL (31-37) Red Cell Distribution Width 19.9% (11.5-14.5) Platelet Count 43x10^3/uL (140-400) Neutrophils (%) (Auto) 81% (31-73) Lymphocytes (%) (Auto) 12% (24-48) Monocytes (%) (Auto) 7% (0-9) Eosinophils (%) (Auto) 0% (0-3) Basophils (%) (Auto) 0% (0-3) Neutrophils # (Auto) 6.2x10^3uL (1.8-7.7) Lymphocytes # (Auto) 0.9x10^3/uL (1.0-4.8) Monocytes # (Auto) 0.5x10^3/uL (0.0-1.1) Eosinophils # (Auto) 0.0x10^3/uL (0.0-0.7) Basophils # (Auto) 0.0x10^3/uL (0.0-0.2) Reticulocyte Count (auto) 0.3% (0.5-2.5) Haptoglobin 113mg/dL (34-200) Prothrombin Time 28.7SEC (11.7-14.0) Prothromb Time International Ratio 2.9 (0.8-1.1) Fibrinogen < 60mg/dL (200-440) Sodium Level 147mmol/L (136-145) Potassium Level 3.6mmol/L (3.5-5.1) Chloride Level 108mmol/L (98-107) Carbon Dioxide Level 27mmol/L (21-32) Anion Gap 12 (6-14) Blood Urea Nitrogen 82mg/dL (7-20) Creatinine 1.9mg/dL (0.6-1.0) Estimated GFR (Cockcroft-Gault) 32.5 BUN/Creatinine Ratio 43 (6-20) Glucose Level 220mg/dL (70-99) Calcium Level 8.0mg/dL (8.5-10.1) Phosphorus Level 5.0mg/dL (2.6-4.7) Magnesium Level 3.4mg/dL (1.8-2.4) Total Bilirubin 5.5mg/dL (0.2-1.0) Aspartate Amino Transf (AST/SGOT) 31U/L (15-37) Alanine Aminotransferase (ALT/SGPT) 25U/L (14-59) Alkaline Phosphatase 114U/L (46-116) Lactate Dehydrogenase 360U/L (81-234) Total Protein 5.8g/dL (6.4-8.2) Albumin 2.5g/dL (3.4-5.0) Albumin/Globulin Ratio 0.8 (1.0-1.7) Test 08/04/16 06:21 08/04/16 07:11 08/04/16 11:03 08/04/16 17:49 Glucose (Fingerstick) 214mg/dL (70-99) 161mg/dL (70-99) 194mg/dL (70-99) O2 Saturation 99% (92-99) Arterial Blood pH 7.48 (7.35-7.45) Arterial Blood pH (Temp corrected) 7.48 Arterial Blood pCO2 at Patient Temp 35mmHg (35-46) Arterial Blood pCO2 (Temp correct) 34mmHg Arterial Blood pO2 at Patient Temp 240mmHg (65-108) Arterial Blood pO2 (Temp corrected) 239mmHg Arterial Blood HCO3 25mmol/L (21-28) Arterial Blood Base Excess 2mmol/L (-3-3) FiO2 50 Test 08/05/16 00:00 08/05/16 05:30 08/05/16 05:32 08/05/16 08:00 Glucose (Fingerstick) 190mg/dL (70-99) 186mg/dL (70-99) White Blood Count 7.5x10^3/uL (4.0-11.0) Red Blood Count 3.02x10^6/uL (3.50-5.40) Hemoglobin 7.7g/dL (12.0-15.5) Hematocrit 23.8% (36.0-47.0) Mean Corpuscular Volume 79fL (79-100) Mean Corpuscular Hemoglobin 26pg (25-35) Mean Corpuscular Hemoglobin Concent 32g/dL (31-37) Red Cell Distribution Width 20.2% (11.5-14.5) Platelet Count 46x10^3/uL (140-400) Neutrophils (%) (Auto) 83% (31-73) Lymphocytes (%) (Auto) 10% (24-48) Monocytes (%) (Auto) 7% (0-9) Eosinophils (%) (Auto) 0% (0-3) Basophils (%) (Auto) 0% (0-3) Neutrophils # (Auto) 6.3x10^3uL (1.8-7.7) Lymphocytes # (Auto) 0.8x10^3/uL (1.0-4.8) Monocytes # (Auto) 0.5x10^3/uL (0.0-1.1) Eosinophils # (Auto) 0.0x10^3/uL (0.0-0.7) Basophils # (Auto) 0.0x10^3/uL (0.0-0.2) Prothrombin Time 36.0SEC (11.7-14.0) Prothromb Time International Ratio 3.9 (0.8-1.1) Fibrinogen < 60mg/dL (200-440) Sodium Level 143mmol/L (136-145) Potassium Level 3.5mmol/L (3.5-5.1) Chloride Level 108mmol/L (98-107) Carbon Dioxide Level 25mmol/L (21-32) Anion Gap 10 (6-14) Blood Urea Nitrogen 79mg/dL (7-20) Creatinine 1.8mg/dL (0.6-1.0) Estimated GFR (Cockcroft-Gault) 34.6 Glucose Level 210mg/dL (70-99) Lactic Acid Level 2.1mmol/L (0.4-2.0) Calcium Level 8.5mg/dL (8.5-10.1) Phosphorus Level 5.1mg/dL (2.6-4.7) Magnesium Level 3.1mg/dL (1.8-2.4) O2 Saturation 99% (92-99) Arterial Blood pH 7.47 (7.35-7.45) Arterial Blood pCO2 at Patient Temp 32mmHg (35-46) Arterial Blood pO2 at Patient Temp 199mmHg (65-108) Arterial Blood HCO3 23mmol/L (21-28) Arterial Blood Base Excess -1mmol/L (-3-3) FiO2 40 Laboratory Tests Test 08/04/16 11:03 08/04/16 17:49 08/05/16 00:00 08/05/16 05:30 Glucose (Fingerstick) 161mg/dL (70-99) 194mg/dL (70-99) 190mg/dL (70-99) White Blood Count 7.5x10^3/uL (4.0-11.0) Red Blood Count 3.02x10^6/uL (3.50-5.40) Hemoglobin 7.7g/dL (12.0-15.5) Hematocrit 23.8% (36.0-47.0) Mean Corpuscular Volume 79fL (79-100) Mean Corpuscular Hemoglobin 26pg (25-35) Mean Corpuscular Hemoglobin Concent 32g/dL (31-37) Red Cell Distribution Width 20.2% (11.5-14.5) Platelet Count 46x10^3/uL (140-400) Neutrophils (%) (Auto) 83% (31-73) Lymphocytes (%) (Auto) 10% (24-48) Monocytes (%) (Auto) 7% (0-9) Eosinophils (%) (Auto) 0% (0-3) Basophils (%) (Auto) 0% (0-3) Neutrophils # (Auto) 6.3x10^3uL (1.8-7.7) Lymphocytes # (Auto) 0.8x10^3/uL (1.0-4.8) Monocytes # (Auto) 0.5x10^3/uL (0.0-1.1) Eosinophils # (Auto) 0.0x10^3/uL (0.0-0.7) Basophils # (Auto) 0.0x10^3/uL (0.0-0.2) Prothrombin Time 36.0SEC (11.7-14.0) Prothromb Time International Ratio 3.9 (0.8-1.1) Fibrinogen < 60mg/dL (200-440) Sodium Level 143mmol/L (136-145) Potassium Level 3.5mmol/L (3.5-5.1) Chloride Level 108mmol/L (98-107) Carbon Dioxide Level 25mmol/L (21-32) Anion Gap 10 (6-14) Blood Urea Nitrogen 79mg/dL (7-20) Creatinine 1.8mg/dL (0.6-1.0) Estimated GFR (Cockcroft-Gault) 34.6 Glucose Level 210mg/dL (70-99) Lactic Acid Level 2.1mmol/L (0.4-2.0) Calcium Level 8.5mg/dL (8.5-10.1) Phosphorus Level 5.1mg/dL (2.6-4.7) Magnesium Level 3.1mg/dL (1.8-2.4) Test 08/05/16 05:32 08/05/16 08:00 Glucose (Fingerstick) 186mg/dL (70-99) O2 Saturation 99% (92-99) Arterial Blood pH 7.47 (7.35-7.45) Arterial Blood pCO2 at Patient Temp 32mmHg (35-46) Arterial Blood pO2 at Patient Temp 199mmHg (65-108) Arterial Blood HCO3 23mmol/L (21-28) Arterial Blood Base Excess -1mmol/L (-3-3) FiO2 40 Assessment Assessment Problems Medical Problems: (1) Abdominal pain Status: Acute (2) Enterocutaneous fistula Status: Acute (3) Sepsis Status: Acute (4) Urinary tract infection Status: Acute (5) UTI (urinary tract infection) Status: Acute Problems: Plan Plan of Care Problems Medical Problems: (1) Abdominal pain Status: Acute (2) Enterocutaneous fistula Status: Acute (3) Sepsis Status: Acute (4) Urinary tract infection Status: Acute (5) UTI (urinary tract infection) Status: Acute LATOSHA TATUM MD Aug 05, 2016 10:28
[2016-08-05] MEDS ORDERED: DIALYSIS PATIENT. MC PRN ×2 (10:30)
--- NOTE | 2016-08-05 10:51 | RAD ---
Portable chest, 08/05/2016, 10:18 AM: History: Check catheter placement Comparison is made to study of earlier the same day. The right jugular central venous catheter has been replaced with a dialysis type catheter extending into the superior aspect of the right atrium. An NG tube remains in place extending into the stomach. An ET tube remains in place in satisfactory position. The heart size is normal. There is only minimal residual pulmonary infiltrate on the right. No new pulmonary abnormality is seen. There is no evidence of pleural fluid or pneumothorax. IMPRESSION: 1. Interval insertion of a right jugular dialysis type catheter extending into the right atrium. 2. No other significant change since earlier in the day.
--- NOTE | 2016-08-05 11:05 | PDOC ---
PULMONARY PROGRESS NOTES Subjective ON AC MODE SEDATED OFF LEVO Vitals Vital Signs Date Time Temp Pulse Resp B/P Pulse Ox O2 Delivery O2 Flow Rate FiO2 08/05/16 09:19 100 Ventilator 08/05/16 09:00 82 20 125/55 08/05/16 08:30 98.0 98.0 HEENT: Other (nc at perrl, nose clear, orally intuvated. ) Lungs: Other (decrease bs) Cardiovascular: S1, S2 Abdomen: Soft, Non-tender, Other Skin: Warm Labs Laboratory Tests Test 08/03/16 12:51 08/03/16 17:25 08/04/16 00:51 08/04/16 06:13 Glucose (Fingerstick) 134mg/dL (70-99) 151mg/dL (70-99) 162mg/dL (70-99) White Blood Count 7.6x10^3/uL (4.0-11.0) Red Blood Count 2.93x10^6/uL (3.50-5.40) Hemoglobin 7.6g/dL (12.0-15.5) Hematocrit 23.4% (36.0-47.0) Mean Corpuscular Volume 80fL (79-100) Mean Corpuscular Hemoglobin 26pg (25-35) Mean Corpuscular Hemoglobin Concent 33g/dL (31-37) Red Cell Distribution Width 19.9% (11.5-14.5) Platelet Count 43x10^3/uL (140-400) Neutrophils (%) (Auto) 81% (31-73) Lymphocytes (%) (Auto) 12% (24-48) Monocytes (%) (Auto) 7% (0-9) Eosinophils (%) (Auto) 0% (0-3) Basophils (%) (Auto) 0% (0-3) Neutrophils # (Auto) 6.2x10^3uL (1.8-7.7) Lymphocytes # (Auto) 0.9x10^3/uL (1.0-4.8) Monocytes # (Auto) 0.5x10^3/uL (0.0-1.1) Eosinophils # (Auto) 0.0x10^3/uL (0.0-0.7) Basophils # (Auto) 0.0x10^3/uL (0.0-0.2) Reticulocyte Count (auto) 0.3% (0.5-2.5) Haptoglobin 113mg/dL (34-200) Prothrombin Time 28.7SEC (11.7-14.0) Prothromb Time International Ratio 2.9 (0.8-1.1) Fibrinogen < 60mg/dL (200-440) Sodium Level 147mmol/L (136-145) Potassium Level 3.6mmol/L (3.5-5.1) Chloride Level 108mmol/L (98-107) Carbon Dioxide Level 27mmol/L (21-32) Anion Gap 12 (6-14) Blood Urea Nitrogen 82mg/dL (7-20) Creatinine 1.9mg/dL (0.6-1.0) Estimated GFR (Cockcroft-Gault) 32.5 BUN/Creatinine Ratio 43 (6-20) Glucose Level 220mg/dL (70-99) Calcium Level 8.0mg/dL (8.5-10.1) Phosphorus Level 5.0mg/dL (2.6-4.7) Magnesium Level 3.4mg/dL (1.8-2.4) Total Bilirubin 5.5mg/dL (0.2-1.0) Aspartate Amino Transf (AST/SGOT) 31U/L (15-37) Alanine Aminotransferase (ALT/SGPT) 25U/L (14-59) Alkaline Phosphatase 114U/L (46-116) Lactate Dehydrogenase 360U/L (81-234) Total Protein 5.8g/dL (6.4-8.2) Albumin 2.5g/dL (3.4-5.0) Albumin/Globulin Ratio 0.8 (1.0-1.7) Test 08/04/16 06:21 08/04/16 07:11 08/04/16 11:03 08/04/16 17:49 Glucose (Fingerstick) 214mg/dL (70-99) 161mg/dL (70-99) 194mg/dL (70-99) O2 Saturation 99% (92-99) Arterial Blood pH 7.48 (7.35-7.45) Arterial Blood pH (Temp corrected) 7.48 Arterial Blood pCO2 at Patient Temp 35mmHg (35-46) Arterial Blood pCO2 (Temp correct) 34mmHg Arterial Blood pO2 at Patient Temp 240mmHg (65-108) Arterial Blood pO2 (Temp corrected) 239mmHg Arterial Blood HCO3 25mmol/L (21-28) Arterial Blood Base Excess 2mmol/L (-3-3) FiO2 50 Test 08/05/16 00:00 08/05/16 05:30 08/05/16 05:32 08/05/16 08:00 Glucose (Fingerstick) 190mg/dL (70-99) 186mg/dL (70-99) White Blood Count 7.5x10^3/uL (4.0-11.0) Red Blood Count 3.02x10^6/uL (3.50-5.40) Hemoglobin 7.7g/dL (12.0-15.5) Hematocrit 23.8% (36.0-47.0) Mean Corpuscular Volume 79fL (79-100) Mean Corpuscular Hemoglobin 26pg (25-35) Mean Corpuscular Hemoglobin Concent 32g/dL (31-37) Red Cell Distribution Width 20.2% (11.5-14.5) Platelet Count 46x10^3/uL (140-400) Neutrophils (%) (Auto) 83% (31-73) Lymphocytes (%) (Auto) 10% (24-48) Monocytes (%) (Auto) 7% (0-9) Eosinophils (%) (Auto) 0% (0-3) Basophils (%) (Auto) 0% (0-3) Neutrophils # (Auto) 6.3x10^3uL (1.8-7.7) Lymphocytes # (Auto) 0.8x10^3/uL (1.0-4.8) Monocytes # (Auto) 0.5x10^3/uL (0.0-1.1) Eosinophils # (Auto) 0.0x10^3/uL (0.0-0.7) Basophils # (Auto) 0.0x10^3/uL (0.0-0.2) Prothrombin Time 36.0SEC (11.7-14.0) Prothromb Time International Ratio 3.9 (0.8-1.1) Fibrinogen < 60mg/dL (200-440) Sodium Level 143mmol/L (136-145) Potassium Level 3.5mmol/L (3.5-5.1) Chloride Level 108mmol/L (98-107) Carbon Dioxide Level 25mmol/L (21-32) Anion Gap 10 (6-14) Blood Urea Nitrogen 79mg/dL (7-20) Creatinine 1.8mg/dL (0.6-1.0) Estimated GFR (Cockcroft-Gault) 34.6 Glucose Level 210mg/dL (70-99) Lactic Acid Level 2.1mmol/L (0.4-2.0) Calcium Level 8.5mg/dL (8.5-10.1) Phosphorus Level 5.1mg/dL (2.6-4.7) Magnesium Level 3.1mg/dL (1.8-2.4) O2 Saturation 99% (92-99) Arterial Blood pH 7.47 (7.35-7.45) Arterial Blood pCO2 at Patient Temp 32mmHg (35-46) Arterial Blood pO2 at Patient Temp 199mmHg (65-108) Arterial Blood HCO3 23mmol/L (21-28) Arterial Blood Base Excess -1mmol/L (-3-3) FiO2 40 Laboratory Tests Test 08/04/16 17:49 08/05/16 00:00 08/05/16 05:30 08/05/16 05:32 Glucose (Fingerstick) 194mg/dL (70-99) 190mg/dL (70-99) 186mg/dL (70-99) White Blood Count 7.5x10^3/uL (4.0-11.0) Red Blood Count 3.02x10^6/uL (3.50-5.40) Hemoglobin 7.7g/dL (12.0-15.5) Hematocrit 23.8% (36.0-47.0) Mean Corpuscular Volume 79fL (79-100) Mean Corpuscular Hemoglobin 26pg (25-35) Mean Corpuscular Hemoglobin Concent 32g/dL (31-37) Red Cell Distribution Width 20.2% (11.5-14.5) Platelet Count 46x10^3/uL (140-400) Neutrophils (%) (Auto) 83% (31-73) Lymphocytes (%) (Auto) 10% (24-48) Monocytes (%) (Auto) 7% (0-9) Eosinophils (%) (Auto) 0% (0-3) Basophils (%) (Auto) 0% (0-3) Neutrophils # (Auto) 6.3x10^3uL (1.8-7.7) Lymphocytes # (Auto) 0.8x10^3/uL (1.0-4.8) Monocytes # (Auto) 0.5x10^3/uL (0.0-1.1) Eosinophils # (Auto) 0.0x10^3/uL (0.0-0.7) Basophils # (Auto) 0.0x10^3/uL (0.0-0.2) Prothrombin Time 36.0SEC (11.7-14.0) Prothromb Time International Ratio 3.9 (0.8-1.1) Fibrinogen < 60mg/dL (200-440) Sodium Level 143mmol/L (136-145) Potassium Level 3.5mmol/L (3.5-5.1) Chloride Level 108mmol/L (98-107) Carbon Dioxide Level 25mmol/L (21-32) Anion Gap 10 (6-14) Blood Urea Nitrogen 79mg/dL (7-20) Creatinine 1.8mg/dL (0.6-1.0) Estimated GFR (Cockcroft-Gault) 34.6 Glucose Level 210mg/dL (70-99) Lactic Acid Level 2.1mmol/L (0.4-2.0) Calcium Level 8.5mg/dL (8.5-10.1) Phosphorus Level 5.1mg/dL (2.6-4.7) Magnesium Level 3.1mg/dL (1.8-2.4) Test 08/05/16 08:00 O2 Saturation 99% (92-99) Arterial Blood pH 7.47 (7.35-7.45) Arterial Blood pCO2 at Patient Temp 32mmHg (35-46) Arterial Blood pO2 at Patient Temp 199mmHg (65-108) Arterial Blood HCO3 23mmol/L (21-28) Arterial Blood Base Excess -1mmol/L (-3-3) FiO2 40 Medications Active Scripts Medications Dose Route/Sig Days Date Category Dilaudid (Hydromorphone Hcl) 4 Mg Tablet 4 Mg PO Q6HRS 1/16/17 Rx Phenazopyridine Hcl 200 Mg Tablet 200 Mg PO PRN TID PRN 06/29/16 Rx FENTANYL 50mcg/hr (Fentanyl) 1 Each Patch.td72 1 Patch TD Q3DAYS 06/29/16 Rx Anaspaz (Hyoscyamine Sulfate) 0.125 Mg Tab.rapdis 0.125 Mg PO Q6HRS PRN 06/29/16 Rx Cefpodoxime Proxetil 200 Mg Tablet 200 Mg PO BID 06/29/16 Rx Sertraline Hcl 50 Mg Tablet 100 Mg PO DAILY 30 05/12/16 Rx Protonix (Pantoprazole Sodium) 40 Mg Tablet.dr 1 Tab PO DAILY 12/27/15 Rx Zinc Oxide 56.7 Gm Oint...g. 1 Sang TP BID 12/18/15 Rx Lidocaine 35.44 Gm Oint...g. 1 Sang TP BID 12/18/15 Rx Ondansetron Odt (Ondansetron) 4 Mg Tab.rapdis 8 Mg PO PRN Q8HRS PRN 07/03/15 Rx Gas-X (Simethicone) 80 Mg Tab.chew 80 Mg PO PRN QID PRN 09/30/14 Rx Lorazepam 0.5 Mg Tablet 0.5 Mg PO PRN BID PRN 11/08/13 Reported Comments CXR 08/05 RESOLVED CHF Impression . 1. Acute respiratory failure, multifactorial. 2. Septic shock. off pressors 3. Bilateral pulmonary infiltrates compatible with pulmonary edema, ? pneumonia. improved 4. Fungemia. 5. Chronic enterocutaneous fistula. 6. Metabolic toxic encephalopathy. 7. Acute renal failure. 8. [id number] protein malnutrition, present upon admission. 9. Metabolic acidosis. 10.Thrombocytopenia, sepsis induced Plan . AC mode, d/c sedation CPAP trial once awake abx per ID solucortef, with taper bronchodilator monitor Plt cont abx, antifungal protonix, scds for prophylaxis pressors to keep map 65 d/c Art line ROSAMARIA GUNDERSON MD Aug 05, 2016 11:05
--- NOTE | 2016-08-05 11:11 | PDOC ---
PROGRESS NOTES Assessment Problems Medical Problems: (1) Abdominal pain Status: Acute (2) Enterocutaneous fistula Status: Acute (3) Sepsis Status: Acute (4) Urinary tract infection Status: Acute (5) UTI (urinary tract infection) Status: Acute Metabolic encephalopathy. Plan Will follow at intervals Subjective none Objective Vital Signs Date Time Temp Pulse Resp B/P Pulse Ox O2 Delivery O2 Flow Rate FiO2 08/05/16 09:19 100 Ventilator 08/05/16 09:00 82 20 125/55 08/05/16 08:30 98.0 98.0 Intake and Output 08/05/16 07:00 Intake Total 2530.55 ml Output Total 713 ml Balance 1817.55 ml IV Total 2530.55 ml Output Urine Total 713 ml PHYSICAL EXAM Sedated, on ventilator PERRL. Extraocular movements not elicited CN: no focal findings. Muscle tone: normal. Muscle strength: does not move to pain DTR: 1+ Plantar reflex: flexor Gait: not examined in bed. Sensory exam: not testable. Cerebellar: not testable Review of Relevant I have reviewed the following items lucila (where applicable) has been applied. Labs Laboratory Tests Test 08/03/16 12:51 08/03/16 17:25 08/04/16 00:51 08/04/16 06:13 Glucose (Fingerstick) 134mg/dL (70-99) 151mg/dL (70-99) 162mg/dL (70-99) White Blood Count 7.6x10^3/uL (4.0-11.0) Red Blood Count 2.93x10^6/uL (3.50-5.40) Hemoglobin 7.6g/dL (12.0-15.5) Hematocrit 23.4% (36.0-47.0) Mean Corpuscular Volume 80fL (79-100) Mean Corpuscular Hemoglobin 26pg (25-35) Mean Corpuscular Hemoglobin Concent 33g/dL (31-37) Red Cell Distribution Width 19.9% (11.5-14.5) Platelet Count 43x10^3/uL (140-400) Neutrophils (%) (Auto) 81% (31-73) Lymphocytes (%) (Auto) 12% (24-48) Monocytes (%) (Auto) 7% (0-9) Eosinophils (%) (Auto) 0% (0-3) Basophils (%) (Auto) 0% (0-3) Neutrophils # (Auto) 6.2x10^3uL (1.8-7.7) Lymphocytes # (Auto) 0.9x10^3/uL (1.0-4.8) Monocytes # (Auto) 0.5x10^3/uL (0.0-1.1) Eosinophils # (Auto) 0.0x10^3/uL (0.0-0.7) Basophils # (Auto) 0.0x10^3/uL (0.0-0.2) Reticulocyte Count (auto) 0.3% (0.5-2.5) Haptoglobin 113mg/dL (34-200) Prothrombin Time 28.7SEC (11.7-14.0) Prothromb Time International Ratio 2.9 (0.8-1.1) Fibrinogen < 60mg/dL (200-440) Sodium Level 147mmol/L (136-145) Potassium Level 3.6mmol/L (3.5-5.1) Chloride Level 108mmol/L (98-107) Carbon Dioxide Level 27mmol/L (21-32) Anion Gap 12 (6-14) Blood Urea Nitrogen 82mg/dL (7-20) Creatinine 1.9mg/dL (0.6-1.0) Estimated GFR (Cockcroft-Gault) 32.5 BUN/Creatinine Ratio 43 (6-20) Glucose Level 220mg/dL (70-99) Calcium Level 8.0mg/dL (8.5-10.1) Phosphorus Level 5.0mg/dL (2.6-4.7) Magnesium Level 3.4mg/dL (1.8-2.4) Total Bilirubin 5.5mg/dL (0.2-1.0) Aspartate Amino Transf (AST/SGOT) 31U/L (15-37) Alanine Aminotransferase (ALT/SGPT) 25U/L (14-59) Alkaline Phosphatase 114U/L (46-116) Lactate Dehydrogenase 360U/L (81-234) Total Protein 5.8g/dL (6.4-8.2) Albumin 2.5g/dL (3.4-5.0) Albumin/Globulin Ratio 0.8 (1.0-1.7) Test 08/04/16 06:21 08/04/16 07:11 08/04/16 11:03 08/04/16 17:49 Glucose (Fingerstick) 214mg/dL (70-99) 161mg/dL (70-99) 194mg/dL (70-99) O2 Saturation 99% (92-99) Arterial Blood pH 7.48 (7.35-7.45) Arterial Blood pH (Temp corrected) 7.48 Arterial Blood pCO2 at Patient Temp 35mmHg (35-46) Arterial Blood pCO2 (Temp correct) 34mmHg Arterial Blood pO2 at Patient Temp 240mmHg (65-108) Arterial Blood pO2 (Temp corrected) 239mmHg Arterial Blood HCO3 25mmol/L (21-28) Arterial Blood Base Excess 2mmol/L (-3-3) FiO2 50 Test 08/05/16 00:00 08/05/16 05:30 08/05/16 05:32 08/05/16 08:00 Glucose (Fingerstick) 190mg/dL (70-99) 186mg/dL (70-99) White Blood Count 7.5x10^3/uL (4.0-11.0) Red Blood Count 3.02x10^6/uL (3.50-5.40) Hemoglobin 7.7g/dL (12.0-15.5) Hematocrit 23.8% (36.0-47.0) Mean Corpuscular Volume 79fL (79-100) Mean Corpuscular Hemoglobin 26pg (25-35) Mean Corpuscular Hemoglobin Concent 32g/dL (31-37) Red Cell Distribution Width 20.2% (11.5-14.5) Platelet Count 46x10^3/uL (140-400) Neutrophils (%) (Auto) 83% (31-73) Lymphocytes (%) (Auto) 10% (24-48) Monocytes (%) (Auto) 7% (0-9) Eosinophils (%) (Auto) 0% (0-3) Basophils (%) (Auto) 0% (0-3) Neutrophils # (Auto) 6.3x10^3uL (1.8-7.7) Lymphocytes # (Auto) 0.8x10^3/uL (1.0-4.8) Monocytes # (Auto) 0.5x10^3/uL (0.0-1.1) Eosinophils # (Auto) 0.0x10^3/uL (0.0-0.7) Basophils # (Auto) 0.0x10^3/uL (0.0-0.2) Prothrombin Time 36.0SEC (11.7-14.0) Prothromb Time International Ratio 3.9 (0.8-1.1) Fibrinogen < 60mg/dL (200-440) Sodium Level 143mmol/L (136-145) Potassium Level 3.5mmol/L (3.5-5.1) Chloride Level 108mmol/L (98-107) Carbon Dioxide Level 25mmol/L (21-32) Anion Gap 10 (6-14) Blood Urea Nitrogen 79mg/dL (7-20) Creatinine 1.8mg/dL (0.6-1.0) Estimated GFR (Cockcroft-Gault) 34.6 Glucose Level 210mg/dL (70-99) Lactic Acid Level 2.1mmol/L (0.4-2.0) Calcium Level 8.5mg/dL (8.5-10.1) Phosphorus Level 5.1mg/dL (2.6-4.7) Magnesium Level 3.1mg/dL (1.8-2.4) O2 Saturation 99% (92-99) Arterial Blood pH 7.47 (7.35-7.45) Arterial Blood pCO2 at Patient Temp 32mmHg (35-46) Arterial Blood pO2 at Patient Temp 199mmHg (65-108) Arterial Blood HCO3 23mmol/L (21-28) Arterial Blood Base Excess -1mmol/L (-3-3) FiO2 40 Laboratory Tests Test 08/04/16 17:49 08/05/16 00:00 08/05/16 05:30 08/05/16 05:32 Glucose (Fingerstick) 194mg/dL (70-99) 190mg/dL (70-99) 186mg/dL (70-99) White Blood Count 7.5x10^3/uL (4.0-11.0) Red Blood Count 3.02x10^6/uL (3.50-5.40) Hemoglobin 7.7g/dL (12.0-15.5) Hematocrit 23.8% (36.0-47.0) Mean Corpuscular Volume 79fL (79-100) Mean Corpuscular Hemoglobin 26pg (25-35) Mean Corpuscular Hemoglobin Concent 32g/dL (31-37) Red Cell Distribution Width 20.2% (11.5-14.5) Platelet Count 46x10^3/uL (140-400) Neutrophils (%) (Auto) 83% (31-73) Lymphocytes (%) (Auto) 10% (24-48) Monocytes (%) (Auto) 7% (0-9) Eosinophils (%) (Auto) 0% (0-3) Basophils (%) (Auto) 0% (0-3) Neutrophils # (Auto) 6.3x10^3uL (1.8-7.7) Lymphocytes # (Auto) 0.8x10^3/uL (1.0-4.8) Monocytes # (Auto) 0.5x10^3/uL (0.0-1.1) Eosinophils # (Auto) 0.0x10^3/uL (0.0-0.7) Basophils # (Auto) 0.0x10^3/uL (0.0-0.2) Prothrombin Time 36.0SEC (11.7-14.0) Prothromb Time International Ratio 3.9 (0.8-1.1) Fibrinogen < 60mg/dL (200-440) Sodium Level 143mmol/L (136-145) Potassium Level 3.5mmol/L (3.5-5.1) Chloride Level 108mmol/L (98-107) Carbon Dioxide Level 25mmol/L (21-32) Anion Gap 10 (6-14) Blood Urea Nitrogen 79mg/dL (7-20) Creatinine 1.8mg/dL (0.6-1.0) Estimated GFR (Cockcroft-Gault) 34.6 Glucose Level 210mg/dL (70-99) Lactic Acid Level 2.1mmol/L (0.4-2.0) Calcium Level 8.5mg/dL (8.5-10.1) Phosphorus Level 5.1mg/dL (2.6-4.7) Magnesium Level 3.1mg/dL (1.8-2.4) Test 08/05/16 08:00 O2 Saturation 99% (92-99) Arterial Blood pH 7.47 (7.35-7.45) Arterial Blood pCO2 at Patient Temp 32mmHg (35-46) Arterial Blood pO2 at Patient Temp 199mmHg (65-108) Arterial Blood HCO3 23mmol/L (21-28) Arterial Blood Base Excess -1mmol/L (-3-3) FiO2 40 Microbiology 08/01/16 Blood Culture - Preliminary, Resulted NO GROWTH AFTER 4 DAYS 07/15/16 Urine Culture - Final, Complete 07/15/16 Urine Culture Result 1 (ROYA) - Final, Complete 07/15/16 Urine Culture Result 2 (ROYA) - Final, Complete 07/15/16 Antimicrobic Susceptibility - Final, Complete 07/29/16 Aerobic Culture - Final, Complete 07/29/16 Aerobic Culture Result 1 (ROYA) - Final, Complete Medications Current Medications Piperacillin Sod/ Tazobactam Sod/ Sodium Chloride (Zosyn/Iv Sodium Chloride 0.9 % 100ml) 100 ml @ 200 mls/hr 1X ONCE IV Last administered on 07/15/16 22:56; Start 07/15/16 at 22:00; Stop 07/15/16 at 22:29; Status DC Fentanyl Citrate 50 mcg 50 mcg PRN Q15MIN PRN IV PAIN GREATER THAN 3/10 Last administered on 07/16/16 00:30; Start 07/15/16 at 21:45; Stop 07/16/16 at 02:00; Status DC Sodium Chloride 1,000 ml @ 1,000 mls/hr 1X ONCE IV Last administered on 21:59; Start 07/15/16 at 22:00; Stop 07/15/16 at 22:59; Status DC Sodium Chloride (Iv Sodium Chloride 0.9% 500ml Bag) 500 ml @ 500 mls/hr 1X ONCE IV Last administered on 07/15/16 22:00; Start 07/15/16 at 22:00; Stop at 22:59; Status DC Ondansetron HCl (Zofran) 4 mg PRN Q8HRS PRN IV NAUSEA/VOMITING; Start 07/15/16 at 23:30; Stop 07/16/16 at 08:52; Status DC Fentanyl Citrate 50 mcg 50 mcg PRN Q2HR PRN IV SEVERE PAIN Last administered on 07/16/16 08:10; Start 07/15/16 at 23:30; Stop 07/16/16 at 08:52; Status DC Sodium Chloride (Iv Sodium Chloride 0.9% 1000ml Bag) 1,000 ml @ 150 mls/hr Q6H40M IV Last administered on 07/15/16 02:00; Start 07/15/16 at 23:45; Stop 07/16/16 at 08:52; Status DC Acetaminophen (Tylenol) 650 mg PRN Q4HRS PRN PO FEVER; Start 07/15/16 at 23:30; Stop 07/16/16 at 23:29; Status DC Info (Do NOT chart on this placeholder) 1 each PRN DAILY PRN MC NEEDS VERIFICATION; Start 07/16/16 at 03:00; Status Cancel Acetaminophen 650 mg 650 mg PRN Q4HRS PRN PO MILD PAIN / TEMP Last administered on 07/28/16 07:42; Start 07/16/16 at 08:45; Stop 07/29/16 at 08:33 ; Status DC Piperacillin Sod/ Tazobactam Sod 3.375 gm/Sodium Chloride 50 ml @ 100 mls/hr Q6HRS IV Last administered on 07/18/16 05:50; Start 07/16/16 at 10:00; Stop 07/18 at 13:28; Status DC Linezolid (Zyvox Premix) 300 ml @ 300 mls/hr Q12HR IV Last administered on 07/18 08:34; Start 07/16/16 at 10:00; Stop 07/18/16 at 13:28; Status DC Hydromorphone HCl (Dilaudid) 2 mg PRN Q4HRS PRN IV MODERATE PAIN Last administered on 07/28/16 23:33; Start 07/16/16 at 08:45 Hydromorphone HCl (Dilaudid) 4 mg PRN Q4HRS PRN IV SEVERE PAIN Last administered on 07/30/16 09:23; Start 07/16/16 at 08:45; Stop 07/31/16 at 15:01 ; Status DC Pantoprazole Sodium (Protonix) 40 mg DAILYAC PO Last administered on 07/27/16 11:11; Start 07/16/16 at 09:30; Stop 07/29/16 at 08:44; Status DC Hyoscyamine (Anaspaz) 0.125 mg Q6HRS PO Last administered on 07/20/16 05:20; Start 07/16/16 at 12:00; Stop 07/20/16 at 08:58; Status DC Phenazopyridine HCl (Pyridium) 200 mg TID PO Last administered on 07/20/16 08: 25; Start 07/16/16 at 09:30; Stop 07/20/16 at 08:58; Status DC Lorazepam (Ativan) 0.5 mg PRN BID PRN PO ANXIETY / AGITATION Last administered on 07/29/16 02:16; Start 07/16/16 at 08:45; Stop 07/31/16 at 15:01; Status DC Simethicone (Gas-X) 80 mg PRN Q4HRS PRN PO GAS / BLOATING Last administered on 07/24/16 22:30; Start 07/16/16 at 08:45; Stop 07/31/16 at 15:01; Status DC Zolpidem Tartrate 5 mg 5 mg PRN QHS PRN PO INSOMNIA Last administered on 23:14; Start 07/16/16 at 08:45; Stop 07/31/16 at 15:01; Status DC Potassium Chloride/Dextrose/ Sod Cl 1,000 ml @ 80 mls/hr [id number] IV Last administered on 07/16/16 10:54; Start 07/16/16 at 09:30; Stop 07/16/16 at 21:59; Status DC Fluconazole/ Sodium Chloride (Diflucan 200mg/ 100ml Premix) 100 ml @ 100 mls/ hr Q24H IV Last administered on 07/18/16 11:43; Start 07/16/16 at 11:00; Stop at 13:28; Status DC Info 1 each 1 each PRN DAILY PRN MC SEE COMMENTS Last administered on 12:41; Start 07/16/16 at 10:00; Stop 08/01/16 at 11:24; Status DC Sodium Chloride 220 meq/Sodium Acetate 90 meq/ Potassium Chloride 50 meq/ Potassium Acetate 15 meq/Potassium Phosphate 10 mmol/ Magnesium Sulfate 50 meq/ Calcium Gluconate 6 meq/ Multivitamins/ Minerals 10 ml/ Chromium/Copper/ Manganese/Seleni/ Zn 1 ml/Total Parenteral Nutrition/Amino Acids/Dextro... 1, 920 ml @ 80 mls/hr TPN CONT IV ; Start 07/16/16 at 22:00; Stop 07/16/16 at 22:00 ; Status DC Sodium Chloride/ Sodium Acetate/ Potassium Chloride/ Potassium Acetate/ Potassium Phosphate/ Magnesium Sulfate/ Calcium Gluconate/ Multivitamins/ Minerals/Chromium/ Copper/Manganese/ Seleni/Zn/Total Parenteral Nutrition/Amino Acids/Dextrose/ Fat Emulsion Intravenous (Sodium Chlori... 1,820 ml @ 75.833 mls/ hr TPN CONT IV Last administered on 07/16/16 21:03; Start 07/16/16 at 22: 00; Stop 07/17/16 at 21:59; Status DC Ondansetron HCl (Zofran) 4 mg PRN Q6HRS PRN IV NAUSEA/VOMITING Last administered on 07/21/16 08:48; Start 07/16/16 at 17:15; Stop 07/31/16 at 15:01; Status DC Diphenhydramine HCl (Benadryl) 25 mg PRN Q6HRS PRN PO ITCHING Last administered on 07/25/16 23:38; Start 07/16/16 at 17:45; Stop 07/31/16 at 15:01 ; Status DC Lidocaine (Xylocaine) 1 sang BID TP Last administered on 08/04/16 20:44; Start 07/17/16 at 09:00 Zinc Oxide 1 sang 1 sang BID TP Last administered on 08/04/16 20:44; Start at 09:30 Sodium Chloride/ Sodium Acetate/ Potassium Chloride/ Potassium Acetate/ Potassium Phosphate/ Magnesium Sulfate/ Calcium Gluconate/ Multivitamins/ Minerals/Chromium/ Copper/Manganese/ Seleni/Zn/Total Parenteral Nutrition/Amino Acids/Dextrose/ Fat Emulsion Intravenous (Sodium Chlori... 1,920 ml @ 80 mls/ hr TPN CONT IV Last administered on 07/17/16 22:13; Start 07/17/16 at 22:00; Stop 07/18/16 at 21:59; Status DC Furosemide 40 mg 40 mg 1X ONCE IVP Last administered on 07/18/16 11:43; Start 07/18/16 at 11:00; Stop 07/18/16 at 11:07; Status DC Sodium Chloride 220 meq/Sodium Acetate 90 meq/ Potassium Chloride 50 meq/ Potassium Acetate 15 meq/Potassium Phosphate 10 mmol/ Magnesium Sulfate 50 meq/ Calcium Gluconate 3 meq/ Multivitamins/ Minerals 10 ml/ Chromium/Copper/ Manganese/Seleni/ Zn 1 ml/Total Parenteral Nutrition/Amino Acids/Dextro... 1, 920 ml @ 80 mls/hr TPN CONT IV Last administered on 07/19/16 00:03; Start 07/18/16 at 22:00; Stop 07/19/16 at 21:59; Status DC Meropenem 1 gm/ Sodium Chloride 100 ml @ 200 mls/hr Q8HRS IV Last administered on 07/20/16 05:21; Start 07/18/16 at 14:00; Stop 07/20/16 at 11:25; Status DC Micafungin Sodium 100 mg/Dextrose 100 ml @ 100 mls/hr Q24H IV Last administered on 07/19/16 15:05; Start 07/18/16 at 14:00; Stop 07/20/16 at 11:25; Status DC Daptomycin/Sodium Chloride (Cubicin/Iv Sodium Chloride 0.9% 50ml) 50 ml @ 100 mls/hr Q24H IV Last administered on 07/19/16 16:56; Start 07/18/16 at 15:00; Stop 07/20/16 at 11:25; Status DC Alteplase, Recombinant (Cathflo) 2 mg 1X ONCE INT CAT Last administered on 07/19 06:24; Start 07/19/16 at 07:00; Stop 07/19/16 at 07:01; Status DC Gentamicin Sulfate 1 each 1 each PRN DAILY PRN MC SEE COMMENTS Last administered on 07/25/16 15:31; Start 07/19/16 at 12:15; Stop 07/25/16 at 16:14 ; Status DC Gentamicin Sulfate/Sodium Chloride (Iv Sodium Chloride 0.9% 100ml) 106.75 ml @ 106.75 mls/hr Q24H IV Last administered on 07/25/16 15:31; Start 07/19/16 at 13 :00; Stop 07/25/16 at 16:12; Status DC Gentamicin Sulfate 1 each 1 each 1X ONCE MC Last administered on 07/19/16 23: 00; Start 07/19/16 at 23:00; Stop 07/19/16 at 23:01; Status DC Sodium Chloride/ Sodium Acetate/ Potassium Chloride/ Potassium Acetate/ Potassium Phosphate/ Magnesium Sulfate/ Calcium Gluconate/ Multivitamins/ Minerals/Chromium/ Copper/Manganese/ Seleni/Zn/Total Parenteral Nutrition/Amino Acids/Dextrose/ Fat Emulsion Intravenous (Sodium Chlori... 1,920 ml @ 80 mls/ hr TPN CONT IV Last administered on 07/19/16 20:51; Start 07/19/16 at 22:00; Stop 07/20/16 at 21:59; Status DC Hyoscyamine (Anaspaz) 0.125 mg PRN Q6HRS PRN PO BLADDER SPASM; Start 07/20/16 at 09:00; Stop 07/31/16 at 15:01; Status DC Phenazopyridine HCl 200 mg 200 mg PRN TID PRN PO BLADDER SPASM Last administered on 07/21/16 20:14; Start 07/20/16 at 09:00; Stop 07/31/16 at 15:01; Status DC Linezolid 300 ml @ 300 mls/hr Q12HR IV Last administered on 07/25/16 09:02; Start 07/20/16 at 12:00; Stop 07/25/16 at 16:12; Status DC Sodium Chloride 220 meq/Sodium Acetate 90 meq/ Potassium Chloride 50 meq/ Potassium Acetate 15 meq/Potassium Phosphate 10 mmol/ Magnesium Sulfate 50 meq/ Calcium Gluconate 3 meq/ Multivitamins/ Minerals 10 ml/ Chromium/Copper/ Manganese/Seleni/ Zn 1 ml/Total Parenteral Nutrition/Amino Acids/Dextro... 1, 920 ml @ 80 mls/hr TPN CONT IV Last administered on 07/20/16 21:30; Start 07/20/16 at 22:00; Stop 07/21/16 at 21:59; Status DC Sodium Chloride/ Sodium Acetate/ Potassium Chloride/ Potassium Acetate/ Potassium Phosphate/ Magnesium Sulfate/ Multivitamins/ Minerals/Chromium/ Copper /Manganese/ Seleni/Zn/Total Parenteral Nutrition/Amino Acids/Dextrose/ Fat Emulsion Intravenous (Sodium Chloride/ Potass... 1,920 ml @ 80 mls/hr TPN CONT IV Last administered on 07/21/16 22:05; Start 07/21/16 at 22:00; Stop at 21:59; Status DC Alteplase, Recombinant 2 mg 2 mg PRN DAILY PRN INT CAT INFLAMMATION Last administered on 07/27/16 11:31; Start 07/21/16 at 15:00 Sodium Chloride 220 meq/Sodium Acetate 90 meq/ Potassium Chloride 50 meq/ Potassium Acetate 15 meq/Potassium Phosphate 10 mmol/ Magnesium Sulfate 50 meq/ Multivitamins/ Minerals 10 ml/ Chromium/Copper/ Manganese/Seleni/ Zn 1 ml/Total Parenteral Nutrition/Amino Acids/Dextrose/ Fat Emuls... 1,920 ml @ 80 mls/hr TPN CONT IV Last administered on 07/22/16 20:53; Start 07/22/16 at 22:00; Stop 07/23/16 at 21:59; Status DC Sodium Chloride/ Sodium Acetate/ Potassium Chloride/ Potassium Acetate/ Potassium Phosphate/ Magnesium Sulfate/ Multivitamins/ Minerals/Chromium/ Copper /Manganese/ Seleni/Zn/Total Parenteral Nutrition/Amino Acids/Dextrose/ Fat Emulsion Intravenous (Sodium Chloride/ Potass... 1,920 ml @ 80 mls/hr TPN CONT IV Last administered on 07/23/16 21:16; Start 07/23/16 at 22:00; Stop 07/24 at 21:59; Status DC Gentamicin Sulfate 1 each 1 each 1X ONCE MC ; Start 07/23/16 at 22:00; Stop 07/23 at 22:01; Status Cancel Sodium Chloride/ Sodium Acetate/ Potassium Chloride/ Potassium Acetate/ Potassium Phosphate/ Magnesium Sulfate/ Multivitamins/ Minerals/Chromium/ Copper /Manganese/ Seleni/Zn/Total Parenteral Nutrition/Amino Acids/Dextrose/ Fat Emulsion Intravenous (Sodium Chloride/ Potass... 1,920 ml @ 80 mls/hr TPN CONT IV Last administered on 07/24/16 21:15; Start 07/24/16 at 22:00; Stop 04/30 at 21:59; Status DC Gentamicin Sulfate 1 each 1X ONCE MC ; Start 07/25/16 at 12:30; Stop 07/25/16 at 12:31; Status Cancel Amlodipine Besylate 5 mg 5 mg DAILY PO Last administered on 07/27/16 11:12; Start 07/25/16 at 12:00; Stop 07/29/16 at 08:44; Status DC Sodium Chloride 220 meq/Sodium Acetate 90 meq/ Potassium Chloride 30 meq/ Potassium Acetate 15 meq/Potassium Phosphate 10 mmol/ Magnesium Sulfate 50 meq/ Multivitamins/ Minerals 10 ml/ Chromium/Copper/ Manganese/Seleni/ Zn 1 ml/Total Parenteral Nutrition/Amino Acids/Dextrose/ Fat Emuls... 1,920 ml @ 80 mls/hr TPN CONT IV Last administered on 07/25/16 22:25; Start 07/25/16 at 22:00; Stop 07/26/16 at 21:59; Status DC Sodium Chloride/ Sodium Acetate/ Potassium Chloride/ Potassium Acetate/ Potassium Phosphate/ Magnesium Sulfate/ Multivitamins/ Minerals/Chromium/ Copper /Manganese/ Seleni/Zn/Total Parenteral Nutrition/Amino Acids/Dextrose/ Fat Emulsion Intravenous (Sodium Chloride/ Potass... 1,920 ml @ 80 mls/hr TPN CONT IV Last administered on 07/26/16 23:16; Start 07/26/16 at 22:00; Stop at 21:59; Status DC Furosemide 20 mg 20 mg 1X ONCE IVP Last administered on 07/27/16 11:31; Start 07/27/16 at 09:00; Stop 07/27/16 at 09:01; Status DC Daptomycin 340 mg/ Sodium Chloride 50 ml @ 100 mls/hr Q24H IV Last administered on 07/29/16 15:05; Start 07/27/16 at 13:00; Stop 07/30/16 at 07:25 ; Status DC Piperacillin Sod/ Tazobactam Sod 3.375 gm/Sodium Chloride 50 ml @ 100 mls/hr Q6HRS IV Last administered on 07/30/16 05:30; Start 07/27/16 at 12:30; Stop at 07:25; Status DC Fluconazole/ Sodium Chloride 100 ml @ 100 mls/hr Q24H IV Last administered on 07/28/16 13:32; Start 07/27/16 at 13:00; Stop 07/29/16 at 00:53; Status DC Sodium Chloride 1,000 ml @ 1,000 mls/hr 1X ONCE IV Last administered on 12:34; Start 07/27/16 at 12:30; Stop 07/27/16 at 13:29; Status DC Sodium Chloride 220 meq/Sodium Acetate 90 meq/ Potassium Chloride 30 meq/ Potassium Acetate 15 meq/Potassium Phosphate 10 mmol/ Magnesium Sulfate 45 meq/ Multivitamins/ Minerals 10 ml/ Chromium/Copper/ Manganese/Seleni/ Zn 1 ml/Total Parenteral Nutrition/Amino Acids/Dextrose/ Fat Emuls... 1,920 ml @ 80 mls/hr TPN CONT IV Last administered on 07/27/16 22:38; Start 07/27/16 at 22:00; Stop 07/28/16 at 21:59; Status DC Sodium Chloride (Iv Sodium Chloride 0.9% 1000ml Bag) 1,000 ml @ 45 mls/hr [id number] IV Last administered on 07/28/16 03:24; Start 07/27/16 at 17:00; Stop 07/28/16 at 10:27; Status DC Acetaminophen 650 mg 650 mg PRN Q6HRS PRN [place] fever Last administered on 03:57; Start 07/27/16 at 16:30; Stop 07/29/16 at 08:33; Status DC Sodium Chloride 1,000 ml @ 427.5 mls/ hr Q2H21M IV Last administered on 19:30; Start 07/27/16 at 19:30; Stop 07/27/16 at 23:30; Status DC Sodium Chloride 220 meq/Sodium Acetate 90 meq/ Potassium Chloride 30 meq/ Potassium Acetate 15 meq/Potassium Phosphate 10 mmol/ Magnesium Sulfate 45 meq/ Multivitamins/ Minerals 10 ml/ Chromium/Copper/ Manganese/Seleni/ Zn 1 ml/Total Parenteral Nutrition/Amino Acids/Dextrose/ Fat Emuls... 1,920 ml @ 80 mls/hr TPN CONT IV Last administered on 07/28/16 21:43; Start 07/28/16 at 22:00; Stop 07/29/16 at 21:59; Status DC Micafungin Sodium/ Dextrose (Mycamine) 100 ml @ 100 mls/hr Q24H IV Last administered on 08/05/16 01:16; Start 07/29/16 at 01:00 Lorazepam (Ativan) 0.05 mg PRN Q4HRS PRN IV ANXIETY / AGITATION; Start at 02:30; Stop 07/29/16 at 02:48; Status DC Lorazepam (Ativan) 0.5 mg PRN Q4HRS PRN IV ANXIETY / AGITATION Last administered on 07/29/16 03:18; Start 07/29/16 at 03:00 Acetaminophen (Tylenol) 650 mg PRN Q4HRS PRN [place] MILD PAIN / TEMP; Start at 08:30 Ketorolac Tromethamine (Toradol) 30 mg PRN Q6HRS PRN IV PAIN/FEVER Last administered on 07/30/16 00:50; Start 07/29/16 at 08:30; Stop 07/30/16 at 13:01 ; Status DC Pantoprazole Sodium 40 mg 40 mg DAILYAC IVP Last administered on 08/04/16 08: 54; Start 07/29/16 at 09:00 Sodium Chloride 1,000 ml @ 45 mls/hr [id number] IV Last administered on 09:17; Start 07/29/16 at 08:45; Stop 07/31/16 at 15:01; Status DC Sodium Chloride/ Sodium Acetate/ Potassium Chloride/ Potassium Acetate/ Potassium Phosphate/ Magnesium Sulfate/ Multivitamins/ Minerals/Chromium/ Copper /Manganese/ Seleni/Zn/Total Parenteral Nutrition/Amino Acids/Dextrose/ Fat Emulsion Intravenous (Sodium Chloride/ Potass... 1,920 ml @ 80 mls/hr TPN CONT IV Last administered on 07/29/16 22:06; Start 07/29/16 at 22:00; Stop at 21:59; Status DC Lidocaine/Sodium Bicarbonate 20 ml 20 ml STK-MED ONCE IJ ; Start 07/29/16 at 13: 13; Stop 07/29/16 at 13:14; Status DC Heparin Sodium/ Sodium Chloride 500 ml @ As Directed STK-MED ONCE .ROUTE ; Start 07/29/16 at 13:13; Stop 07/29/16 at 13:14; Status DC Lidocaine/ Epinephrine (Xylocaine 1%-Epi 1:100,000) 20 ml STK-MED ONCE .ROUTE ; Start 07/29/16 at 13:22; Stop 07/29/16 at 13:23; Status DC Midazolam HCl (Versed) 5 mg STK-MED ONCE .ROUTE ; Start 07/29/16 at 13:32; Stop 07/29/16 at 13:33; Status DC Fentanyl Citrate (Fentanyl 5ml Vial) 250 mcg STK-MED ONCE .ROUTE ; Start at 13:32; Stop 07/29/16 at 13:33; Status DC Heparin Sodium/ Sodium Chloride 1,000 unit 1X ONCE IART Last administered on 13:45; Start 07/29/16 at 13:45; Stop 07/29/16 at 13:48; Status DC Midazolam HCl (Versed) 5 mg 1X ONCE IV Last administered on 07/29/16 13:45; Start 07/29/16 at 13:45; Stop 07/29/16 at 13:48; Status DC Fentanyl Citrate (Fentanyl 5ml Vial) 250 mcg 1X ONCE IV Last administered on 13:45; Start 07/29/16 at 13:45; Stop 07/29/16 at 13:48; Status DC Lidocaine/ Epinephrine 20 ml 20 ml 1X ONCE IJ Last administered on 07/29/16 13:45; Start 07/29/16 at 13:45; Stop 07/29/16 at 13:48; Status DC Sodium Chloride 220 meq/Sodium Acetate 90 meq/ Potassium Chloride 15 meq/ Potassium Acetate 30 meq/Potassium Phosphate 10 mmol/ Magnesium Sulfate 45 meq/ Multivitamins/ Minerals 10 ml/ Chromium/Copper/ Manganese/Seleni/ Zn 1 ml/Total Parenteral Nutrition/Amino Acids/Dextrose/ Fat Emuls... 1,920 ml @ 80 mls/hr TPN CONT IV ; Start 07/30/16 at 22:00; Stop 07/31/16 at 21:59; Status DC Norepinephrine Bitartrate 8 mg/ Sodium Chloride 258 ml @ 1.93 mls/hr 1X ONCE IV Last administered on 07/30/16 11:17; Start 07/30/16 at 11:15; Stop at 15:43; Status DC Norepinephrine Bitartrate/Sodium Chloride (Levophed Vial/ Iv Sodium Chloride 0.9 % 250ml) 258 ml @ 0 mls/hr CONT PRN IV SEE I/O RECORD Last administered on 08/02 19:54; Start 07/30/16 at 11:15; Stop 08/04/16 at 09:29; Status DC Furosemide 60 mg 60 mg 1X ONCE IVP Last administered on 07/30/16 11:14; Start 07/30/16 at 11:15; Stop 07/30/16 at 11:16; Status DC Sodium Chloride 500 ml @ 500 mls/hr Q1H IV Last administered on 07/30/16 17: 04; Start 07/30/16 at 14:30; Stop 07/30/16 at 15:29; Status DC Albumin Human 100 ml @ 100 mls/hr Q8HRS IV Last administered on 07/31/16 05: 37; Start 07/30/16 at 14:30; Stop 07/31/16 at 06:59; Status DC Furosemide/Sodium Chloride (Lasix Drip/Iv Sodium Chloride 0.9% 100ml) 100 ml @ 0 mls/hr CONT PRN IV SEE I/O RECORD Last administered on 07/31/16 03:17; Start 07/30/16 at 14:30; Stop 08/01/16 at 13:19; Status DC Ondansetron HCl (Zofran) 8 mg PRN Q8HRS PRN IV NAUSEA/VOMITING Last administered on 07/30/16 14:38; Start 07/30/16 at 14:30 Sodium Bicarbonate 50 meq 50 meq 1X ONCE IV Last administered on 07/30/16 14: 43; Start 07/30/16 at 14:30; Stop 07/30/16 at 14:31; Status DC Heparin Sodium/ Sodium Chloride 500 ml @ As Directed STK-MED ONCE .ROUTE ; Start 07/30/16 at 14:49; Stop 07/30/16 at 14:50; Status DC Lidocaine HCl 20 ml STK-MED ONCE .ROUTE ; Start 07/30/16 at 14:49; Stop at 14:50; Status DC Midazolam HCl (Versed) 2 mg STK-MED ONCE .ROUTE ; Start 07/30/16 at 15:19; Stop 07/30/16 at 15:20; Status DC Heparin Sodium/ Sodium Chloride 1,000 unit 1X ONCE IART Last administered on 15:44; Start 07/30/16 at 15:45; Stop 07/30/16 at 15:46; Status DC Midazolam HCl (Versed) 1.5 mg 1X ONCE IV Last administered on 07/30/16 15:44 ; Start 07/30/16 at 15:45; Stop 07/30/16 at 15:46; Status DC Lidocaine HCl 20 ml 1X ONCE IJ Last administered on 07/30/16 15:44; Start at 15:45; Stop 07/30/16 at 15:46; Status DC Heparin Sodium (Porcine) 17212 unit 10,000 unit STK-MED ONCE .ROUTE ; Start at 15:54; Stop 07/30/16 at 15:55; Status DC Fentanyl Citrate 30 ml @ 0 mls/hr CONT PRN PRN IV PROTOCOL Last administered on 08/05/16 01:17; Start 07/30/16 at 16:45 Sodium Bicarbonate/ Dextrose 1,150 ml @ 125 mls/hr 1X ONCE IV Last administered on 07/30/16 18:34; Start 07/30/16 at 17:30; Stop 07/31/16 at 02:41 ; Status DC Succinylcholine Chloride 200 mg 200 mg STK-MED ONCE .ROUTE ; Start 07/30/16 at 19:47; Stop 07/30/16 at 19:48; Status DC Propofol 100 ml @ As Directed STK-MED ONCE IV ; Start 07/30/16 at 19:48; Stop 07/30/16 at 19:49; Status DC Midazolam HCl (Versed 100mg/ 100ml Premix) 100 ml @ 0 mls/hr CONT PRN IV SEE I/ O RECORD Last administered on 08/03/16 12:18; Start 07/30/16 at 21:15 Sodium Bicarbonate 50 meq 50 meq 1X ONCE IV Last administered on 07/30/16 22: 15; Start 07/30/16 at 22:30; Stop 07/30/16 at 22:31; Status DC Dopamine HCl/ Dextrose 250 ml @ 11.513 mls/ hr CONT PRN IV SEE I/O RECORD Last administered on 07/31/16 20:16; Start 07/30/16 at 22:15; Stop 08/04/16 at 09:29; Status DC Sodium Bicarbonate/ Dextrose 1,150 ml @ 125 mls/hr Q9H12M IV Last administered on 08/01/16 09:30; Start 07/31/16 at 03:00; Stop 08/01/16 at 13:19 ; Status DC Propofol (Diprivan) 1,000 mg STK-MED ONCE IV ; Start 07/30/16 at 20:00; Stop at 08:16; Status DC Succinylcholine Chloride 200 mg 200 mg STK-MED ONCE .ROUTE ; Start 07/30/16 at 20:00; Stop 07/31/16 at 08:16; Status DC Tigecycline 50 mg/ Sodium Chloride 50 ml @ 100 mls/hr Q12HR IV Last administered on 08/04/16 09:01; Start 07/31/16 at 21:00; Stop 08/04/16 at 10:00 ; Status DC Tigecycline/ Sodium Chloride (Tygacil/Iv Sodium Chloride 0.9% 100ml) 100 ml @ 200 mls/hr 1X ONCE IV Last administered on 07/31/16 09:22; Start 07/31/16 at 09:00; Stop 07/31/16 at 09:29; Status DC Darbepoetin Sarbjit 60 mcg 60 mcg WEEKLYHS SQ Last administered on 07/31/16 21:09 ; Start 07/31/16 at 21:00 Albumin Human 100 ml @ 100 mls/hr 1X ONCE IV Last administered on 07/31/16 11:40; Start 07/31/16 at 11:15; Stop 07/31/16 at 12:14; Status DC Albumin Human 100 ml @ 100 mls/hr 1X ONCE IV Last administered on 07/31/16 12:03; Start 07/31/16 at 11:15; Stop 07/31/16 at 12:14; Status DC Sodium Chloride (Iv Sodium Chloride 0.9% 1000ml Bag) 1,000 ml @ 1,000 mls/hr Q1H PRN IV hypotension; Start 07/31/16 at 11:33; Stop 07/31/16 at 17:32; Status DC Info (PHARMACY MONITORING -- do not chart) 1 each PRN DAILY PRN MC SEE COMMENTS ; Start 07/31/16 at 11:45 Info (PHARMACY MONITORING -- do not chart) 1 each PRN DAILY PRN MC SEE COMMENTS ; Start 07/31/16 at 11:45; Status UNV Hydrocortisone Sodium Succinate (Solu-Cortef) 100 mg Q8HRS IV Last administered on 08/04/16 06:16; Start 08/01/16 at 07:00; Stop 08/04/16 at 09:29 ; Status DC Albuterol/ Ipratropium (Duoneb) 3 ml RTQID NEB Last administered on 08/05/16 07:48; Start 08/01/16 at 08:00 Albuterol/ Ipratropium 3 ml 3 ml STK-MED ONCE .ROUTE Last administered on 07:34; Start 08/01/16 at 06:59; Stop 08/01/16 at 07:00; Status DC Sodium Chloride 1,000 ml @ 1,000 mls/hr Q1H PRN IV hypotension; Start 08/01/16 at 06:57; Stop 08/01/16 at 12:56; Status DC Albumin Human (Albuminar) 200 ml @ 200 mls/hr 1X PRN PRN IV Hypotension; Start 08/01/16 at 07:00; Stop 08/01/16 at 12:59; Status DC Info (PHARMACY MONITORING -- do not chart) 1 each PRN DAILY PRN MC SEE COMMENTS ; Start 08/01/16 at 07:00; Status UNV Info 1 each 1 each PRN DAILY PRN MC SEE COMMENTS Last administered on 14:00; Start 08/01/16 at 13:30 Sodium Chloride 220 meq/Sodium Acetate 90 meq/ Potassium Chloride 15 meq/ Potassium Acetate 30 meq/Potassium Phosphate 10 mmol/ Magnesium Sulfate 45 meq/ Multivitamins/ Minerals 10 ml/ Chromium/Copper/ Manganese/Seleni/ Zn 1 ml/Total Parenteral Nutrition/Amino Acids/Dextrose/ Fat Emuls... 1,920 ml @ 80 mls/hr TPN CONT IV Last administered on 08/01/16 21:56; Start 08/01/16 at 22:00; Stop 08/02/16 at 21:59; Status DC Potassium Chloride (KCl Premix 20meq) 50 ml @ 50 mls/hr Q1H IV Last administered on 08/01/16 19:05; Start 08/01/16 at 17:00; Stop 08/01/16 at 18:59 ; Status DC Insulin Aspart 0-6 UNITS TIDWMEALS SQ Last administered on 08/02/16 11:33; Start 08/02/16 at 12:00; Stop 08/02/16 at 14:34; Status DC Sodium Chloride 220 meq/Sodium Acetate 90 meq/ Potassium Chloride 15 meq/ Potassium Acetate 30 meq/Magnesium Sulfate 45 meq/ Multivitamins/ Minerals 10 ml / Chromium/Copper/ Manganese/Seleni/ Zn 1 ml/Total Parenteral Nutrition/Amino Acids/Dextrose/ Fat Emulsion Intravenous 1,920 ml @ 80 mls/hr TPN CONT IV Last administered on 08/02/16 21:34; Start 08/02/16 at 22:00; Stop 08/03/16 at 21:59; Status DC Levofloxacin/ Dextrose 150 ml @ 100 mls/hr 1X ONCE IV Last administered on 14:35; Start 08/02/16 at 14:00; Stop 08/02/16 at 15:29; Status DC Daptomycin/Sodium Chloride (Cubicin/Iv Sodium Chloride 0.9% 50ml) 50 ml @ 100 mls/hr ONCE ONCE IV Last administered on 08/02/16 14:34; Start 08/02/16 at 15 :00; Stop 08/02/16 at 15:29; Status DC Insulin Aspart 0-6 UNITS Q6HRS SQ Last administered on 08/05/16 05:39; Start 08/02/16 at 18:00 Sodium Chloride (Iv Sodium Chloride 0.9% 1000ml Bag) 1,000 ml @ 1,000 mls/hr Q1H PRN IV hypotension; Start 08/03/16 at 07:26; Stop 08/03/16 at 13:25; Status DC Diphenhydramine HCl (Benadryl) 25 mg 1X PRN PRN IV ITCHING; Start 08/03/16 at 07:30; Stop 08/04/16 at 07:29; Status DC Diphenhydramine HCl (Benadryl) 25 mg 1X PRN PRN IV ITCHING; Start 08/03/16 at 07:30; Stop 08/04/16 at 07:29; Status DC Sodium Chloride (Normal Saline Flush) 10 ml 1X PRN PRN IV AP catheter pack; Start 08/03/16 at 07:30; Stop 08/04/16 at 07:29; Status DC Sodium Chloride 10 ml 10 ml 1X PRN PRN IV [employer] catheter pack; Start 08/03/16 at 07:30; Stop 08/04/16 at 07:29; Status DC Sodium Chloride (Iv Sodium Chloride 0.9% 1000ml Bag) 1,000 ml @ 400 mls/hr Q2H30M PRN IV PATENCY; Start 08/03/16 at 07:26; Stop 08/03/16 at 19:25; Status DC Info 1 each 1 each PRN DAILY PRN MC SEE COMMENTS; Start 08/03/16 at 07:30; Status UNV Albumin Human 200 ml @ 200 mls/hr Q2HR IV Last administered on 08/03/16 10:00 ; Start 08/03/16 at 08:44; Stop 08/03/16 at 10:59; Status DC Sodium Chloride 160 meq/Sodium Acetate 60 meq/ Potassium Chloride 15 meq/ Potassium Acetate 30 meq/Magnesium Sulfate 25 meq/ Multivitamins/ Minerals 10 ml / Chromium/Copper/ Manganese/Seleni/ Zn 1 ml/Total Parenteral Nutrition/Amino Acids/Dextrose/ Fat Emulsion Intravenous 1,500 ml @ 62.5 mls/hr TPN CONT IV Last administered on 08/03/16 22:52; Start 08/03/16 at 22:00; Stop 08/04/16 at 21:59; Status DC Levofloxacin/ Dextrose 100 ml @ 100 mls/hr 1X ONCE IV Last administered on 10:50; Start 08/04/16 at 07:30; Stop 08/04/16 at 08:30; Status DC Daptomycin 450 mg/ Sodium Chloride 50 ml @ 100 mls/hr ONCE ONCE IV Last administered on 08/04/16 09:55; Start 08/04/16 at 08:00; Stop 08/04/16 at 08:30 ; Status DC Tigecycline/ Sodium Chloride (Tygacil/Iv Sodium Chloride 0.9% 50ml) 50 ml @ 100 mls/hr Q12HR IV Last administered on 08/04/16 20:44; Start 08/04/16 at 21: 00 Hydrocortisone Sodium Succinate 50 mg 50 mg Q8HRS IV Last administered on 05:39; Start 08/04/16 at 14:00 Furosemide 100 mg/ Sodium Chloride 100 ml @ 0 mls/hr CONT PRN IV SEE I/O RECORD Last administered on 08/05/16t 01:36; Start 08/04/16 at 11:30 Sodium Chloride 160 meq/Sodium Acetate 60 meq/ Potassium Chloride 15 meq/ Potassium Acetate 30 meq/Magnesium Sulfate 25 meq/ Multivitamins/ Minerals 10 ml / Chromium/Copper/ Manganese/Seleni/ Zn 1 ml/Total Parenteral Nutrition/Amino Acids/Dextrose/ Fat Emulsion Intravenous 1,500 ml @ 62.5 mls/hr TPN CONT IV Last administered on 08/04/16t 21:45; Start 08/04/16 at 22:00 Sodium Chloride 1,000 ml @ 1,000 mls/hr Q1H PRN IV hypotension; Start 08/04/16 at 12:00; Stop 08/04/16 at 17:59; Status DC Sodium Chloride (Iv Sodium Chloride 0.9% 1000ml Bag) 1,000 ml @ 400 mls/hr Q2H30M PRN IV PATENCY; Start 08/04/16 at 12:00; Stop 08/04/16 at 23:59; Status DC Info 1 each 1 each PRN DAILY PRN MC SEE COMMENTS; Start 08/04/16 at 16:30; Status UNV Levofloxacin/ Dextrose 100 ml @ 100 mls/hr 1X ONCE IV ; Start 08/05/16 at 14: 00; Stop 08/05/16 at 14:59 Daptomycin/Sodium Chloride (Cubicin/Iv Sodium Chloride 0.9% 50ml) 50 ml @ 100 mls/hr 1X ONCE IV ; Start 08/05/16 at 14:00; Stop 08/05/16 at 14:29 Heparin Sodium (Porcine) 10,000 unit STK-MED ONCE .ROUTE ; Start 08/05/16 at 09: 35; Stop 08/05/16 at 09:36; Status DC Lidocaine/Sodium Bicarbonate 20 ml 20 ml STK-MED ONCE IJ ; Start 08/05/16 at 09: 36; Stop 08/05/16 at 09:37; Status DC Heparin Sodium/ Sodium Chloride 500 ml @ As Directed STK-MED ONCE .ROUTE ; Start 08/05/16 at 09:36; Stop 08/05/16 at 09:37; Status DC Lidocaine/Sodium Bicarbonate (Buffered Lidocaine 1%) 2 ml 1X ONCE IJ Last administered on 08/05/16 10:04; Start 08/05/16 at 10:00; Stop 08/05/16 at 10:02 ; Status DC Heparin Sodium/ Sodium Chloride 60 unit 1X ONCE IV Last administered on 10:04; Start 08/05/16 at 10:00; Stop 08/05/16 at 10:02; Status DC Heparin Sodium (Porcine) 2,800 unit 1X ONCE INT CAT Last administered on 10:04; Start 08/05/16 at 10:00; Stop 08/05/16 at 10:02; Status DC Info (PHARMACY MONITORING -- do not chart) 1 each PRN DAILY PRN MC SEE COMMENTS ; Start 08/05/16 at 10:30; Stop 08/05/16 at 10:30; Status DC Info (PHARMACY MONITORING -- do not chart) 1 each PRN DAILY PRN MC SEE COMMENTS ; Start 08/05/16 at 10:30; Stop 08/05/16 at 10:30; Status DC Active Scripts Active Dilaudid (Hydromorphone Hcl) 4 Mg Tablet 4 Mg PO Q6HRS Phenazopyridine Hcl 200 Mg Tablet 200 Mg PO PRN TID PRN FENTANYL 50mcg/hr (Fentanyl) 1 Each Patch.td72 1 Patch TD Q3DAYS Anaspaz (Hyoscyamine Sulfate) 0.125 Mg Tab.rapdis 0.125 Mg PO Q6HRS PRN Cefpodoxime Proxetil 200 Mg Tablet 200 Mg PO BID Sertraline Hcl 50 Mg Tablet 100 Mg PO DAILY 30 Days Protonix (Pantoprazole Sodium) 40 Mg Tablet.dr 1 Tab PO DAILY Zinc Oxide 56.7 Gm Oint...g. 1 Sang TP BID Lidocaine 35.44 Gm Oint...g. 1 Sang TP BID Ondansetron Odt (Ondansetron) 4 Mg Tab.rapdis 8 Mg PO PRN Q8HRS PRN Gas-X (Simethicone) 80 Mg Tab.chew 80 Mg PO PRN QID PRN Reported Lorazepam 0.5 Mg Tablet 0.5 Mg PO PRN BID PRN Vitals/I & O Vital Sign - Last 24 Hours 08/04/16 08/04/16 08/04/16 08/04/16 11:25 12:00 12:00 12:00 Pulse 93 Resp 20 B/P 126/59 99/51 Pulse Ox 100 100 O2 Delivery Ventilator Mechanical Ventilator Ventilator 08/04/16 08/04/16 08/04/16 08/04/16 13:00 13:35 14:00 15:00 Temp 97.7 97.7 Pulse 97 102 100 Resp 20 20 26 B/P 126/74 123/62 115/64 Pulse Ox 99 100 99 99 O2 Delivery Ventilator Ventilator Ventilator Ventilator 08/04/16 08/04/16 08/04/16 08/04/16 15:44 16:00 16:00 17:00 Pulse 99 106 Resp 25 25 B/P 114/62 119/54 Pulse Ox 100 99 99 O2 Delivery Ventilator Ventilator Mechanical Ventilator Ventilator 08/04/16 08/04/16 08/04/16 08/04/16 17:58 18:00 19:00 20:00 Temp 98.3 98.3 Pulse 97 96 95 Resp 23 20 22 B/P 120/64 120/52 118/47 Pulse Ox 99 99 100 100 O2 Delivery Ventilator Ventilator Ventilator Ventilator 08/04/16 08/04/16 08/04/16 08/04/16 20:00 20:00 20:20 21:00 Pulse 95 98 Resp 20 B/P 118/47 111/55 Pulse Ox 100 100 O2 Delivery Mechanical Ventilator Ventilator Ventilator 08/04/16 08/04/16 08/04/16 08/04/16 22:00 23:00 23:24 23:59 Pulse 92 92 91 Resp 21 20 B/P 105/47 113/52 114/47 Pulse Ox 100 100 100 O2 Delivery Ventilator Ventilator Ventilator 08/05/16 08/05/16 08/05/16 08/05/16 00:00 00:00 01:00 01:08 Temp 97.5 97.5 Pulse 91 90 Resp 20 20 B/P 114/43 116/52 Pulse Ox 100 100 100 O2 Delivery Ventilator Mechanical Ventilator Ventilator Ventilator 08/05/16 08/05/16 08/05/16 08/05/16 02:00 03:00 03:25 03:43 Pulse 92 94 Resp 20 20 B/P 131/57 136/60 Pulse Ox 100 100 99 O2 Delivery Ventilator Ventilator Ventilator Mechanical Ventilator 08/05/16 08/05/16 08/05/16 08/05/16 04:00 04:00 05:00 05:40 Temp 97.8 97.8 Pulse 93 93 86 Resp 20 20 B/P 130/57 130/57 108/48 Pulse Ox 100 100 100 O2 Delivery Ventilator Ventilator Ventilator 08/05/16 08/05/16 08/05/16 08/05/16 06:00 07:00 07:48 08:00 Pulse 84 90 84 Resp 20 20 B/P 126/53 140/64 125/55 Pulse Ox 100 100 100 O2 Delivery Ventilator Ventilator Ventilator 08/05/16 08/05/16 08/05/16 08/05/16 08:00 08:00 08:15 08:30 Temp 98.0 98.0 98.0 98.0 Pulse 88 85 85 Resp 20 20 B/P 128/58 107/45 112/53 Pulse Ox 100 O2 Delivery Mechanical Ventilator Ventilator 08/05/16 08/05/16 09:00 09:19 Pulse 82 Resp 20 B/P 125/55 Pulse Ox 100 100 O2 Delivery Ventilator Ventilator Intake and Output 08/04/16 08/04/16 08/05/16 15:00 23:00 07:00 Intake Total 200 ml 789.95 ml 1540.6 ml Output Total 235 ml 185 ml 293 ml Balance -35 ml 604.95 ml 1247.6 ml LISSA ANTOINE MD Aug 05, 2016 11:11
[2016-08-05 13:43] LABS: INR 1.4 (0.8-1.1); PROTHROMBIN TIME PATIENT 16.1 SEC (11.7-14.0)
[2016-08-05] MEDS ORDERED: NORMAL SALINE IV ONE (14:00)
[2016-08-05] MEDS ORDERED: DAPTOMYCIN IV ONE (14:00)
[2016-08-05] MEDS: TPN PER PHARMACY MC PRN (14:21)
[2016-08-05] MEDS: PANTOPRAZOLE IV PUSH 40 MG VIAL. IVP SCH (14:26)
[2016-08-05] MEDS: TIGECYCLINE IV SCH ×2 (14:26→20:54)
[2016-08-05] MEDS: NORMAL SALINE IV SCH ×2 (14:26→20:54)
[2016-08-05] MEDS: ZINC OXIDE 20% TOPICAL OINTMENT 28GM TUBE. TP SCH ×2 (14:28→20:57)
[2016-08-05] MEDS: LIDOCAINE 5% TOPICAL OINTMENT 35GM TUBE. TP SCH ×2 (14:28→20:57)
--- NOTE | 2016-08-05 16:37 | RAD ---
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 She has a single remaining right jugular venous access, which currently contains a central venous catheter. She has an enterocutaneous fistula, and is TPN dependent. Therefore, she requires ongoing central venous access. In addition, she has acute renal failure, requiring ongoing hemodialysis. Due to concerns for infection, replacement of her recently placed groin for a dialysis catheter to right jugular vein has been requested by nephrology. In order to maintain central venous access for TPN, and other ICU medications, a triple-lumen Trialysis temporary dialysis catheter will be inserted. Anesthesia: Local only Sterility: All elements of maximal sterile barrier technique, including the use of a cap, mask, sterile gown, sterile gloves, large sterile sheet, appropriate hand hygiene, and 2% chlorhexidine for cutaneous antisepsis (or acceptable alternative antiseptic per current guidelines) were utilized. Procedure: Informed consent was obtained from the patient's daughter. This procedure was performed bedside in the intensive care unit. Right neck was then prepped and draped in the usual sterile fashion, utilizing all elements of maximal sterile barrier technique, as described above. Using aseptic technique and local anesthesia, the patient's indwelling right jugular central venous catheter was removed over a guidewire. The percutaneous venostomy tract was then dilated and a 13 German triple lumen 20 cm Trialysis temporary hemodialysis catheter was easily advanced centrally. The 2 dialysis catheter lumens were documented to flush and aspirate normally and were packed with heparin. The single central venous limb and was also demonstrated to flush and aspirate normally. The triple-lumen dialysis catheter was then secured at the skin exit site utilizing suture and sterile dressing. Patient tolerated the procedure well without apparent complication. A stat portable chest x-ray was requested for triple-lumen temporary dialysis catheter position. Impression: Successful, uneventful bedside ICU [id number] replacement of the patient's indwelling right jugular central venous catheter for a 13 German triple lumen 20 cm Trialysis temporary hemodialysis catheter, as described.
[2016-08-05] MEDS ORDERED: TOTAL PARENTERAL NUTRITION IV SCH ×10 (22:00)
[2016-08-05] MEDS ORDERED: DEXTROSE 70% IV SCH ×10 (22:00)
[2016-08-05] MEDS ORDERED: AMINO ACID IV SCH ×10 (22:00)
[2016-08-05] MEDS ORDERED: [UNRECOGNIZED DRUG - OTHER] IV SCH ×10 (22:00)
[2016-08-06] VITALS (30 sets, daily range): BP systolic 89–155; BP diastolic 51–87
[2016-08-06] MEDS: MICAFUNGIN 100 MG in IV DEXTROSE 5% 100 ML IV SCH (00:30)
[2016-08-06] MEDS: FENTANYL STANDARD PCA 30 ML IV PRN ×3 (03:50→20:46)
[2016-08-06] MEDS: INSULIN ASPART 300 UNITS/3 ML INSULN.PEN SQ SCH ×4 (05:44→23:37)
--- NOTE | 2016-08-06 07:24 | RAD ---
EXAM: Chest one view. HISTORY: Respiratory failure, infiltrates. COMPARISON: 08/05/2016. FINDINGS: A frontal view of the chest is obtained. An endotracheal tube has its tip 4 cm above the deborah. A nasogastric tube has its tip below the inferior margin of the field of view. A right internal jugular hemodialysis catheter is as tip in the right atrium. There are no confluent infiltrates. There is no pneumothorax or pleural effusion. The heart is not enlarged. There are atherosclerotic calcifications of the aorta. IMPRESSION: 1. No confluent infiltrates.
[2016-08-06] MEDS: IPRATRPIUM/ALBUTEROL 0.5/2.5MG 3 ML NEBU. NEB SCH ×4 (07:32→19:34)
[2016-08-06 07:39] LABS: HCO3 ABG 24 mmol/L (21-28); PO2 ABG 208 mmHg (65-108); SAT O2 ABG 99 % (92-99)
--- NOTE | 2016-08-06 07:48 | PDOC ---
Infectious Disease Note Subjective Subjective Nonresponsive Intubated. No fever TPN ROS ROS Unobtainable Vital Sign Vital Signs Vital Signs Date Time Temp Pulse Resp B/P Pulse Ox O2 Delivery O2 Flow Rate FiO2 08/06/16 07:17 100 Ventilator 08/06/16 06:00 94 20 155/73 08/06/16 04:00 97.8 97.8 Physical Exam PHYSICAL EXAM GENERAL: Intubated but eyes open. Min response HEENT: Pupils constricted. ETT. OGT LUNGS: Clear HEART: S1S2, no gallop, no murmur. Distal DP palpable ABD: Soft, BS present, + fistula : [place] EXT: Generalized edema. 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 RUE peripheral. Old groin sites clean Labs Lab Laboratory Tests Test 08/05/16 08:00 08/05/16 13:15 08/05/16 13:17 08/05/16 23:50 O2 Saturation 99% (92-99) Arterial Blood pH 7.47 (7.35-7.45) Arterial Blood pCO2 at Patient Temp 32mmHg (35-46) Arterial Blood pO2 at Patient Temp 199mmHg (65-108) Arterial Blood HCO3 23mmol/L (21-28) Arterial Blood Base Excess -1mmol/L (-3-3) FiO2 40 Prothrombin Time 16.1SEC (11.7-14.0) Prothromb Time International Ratio 1.4 (0.8-1.1) Fibrinogen 102mg/dL (200-440) Glucose (Fingerstick) 133mg/dL (70-99) 153mg/dL (70-99) Test 08/06/16 05:23 08/06/16 05:25 Glucose (Fingerstick) 175mg/dL (70-99) Fibrinogen 68mg/dL (200-440) Lactic Acid Level 2.0mmol/L (0.4-2.0) Micro BLOOD CULTURE Preliminary NO GROWTH AFTER 2 DAYS Enterobacter aerogenes 50,000-100,000 colony forming units per mL URINE CULTURE RES 2 Final Enterococcus faecium 50,000-100,000 colony forming units per mL ANTIMICROBIAL SUSCEPTIBILITY Final Comment S = Susceptible; I = Intermediate; R = Resistant P = Positive; N = Negative MICS are expressed in micrograms per mL Antibiotic RSLT#1 RSLT#2 RSLT#3 RSLT#4 Amoxicillin/Clavulanic Acid R Cefazolin R Cefepime R Ceftriaxone R Cefuroxime R Cephalothin R Ciprofloxacin R R Gentamicin S Imipenem R Levofloxacin R R Nitrofurantoin R I Penicillin R Piperacillin R Tetracycline R R Tobramycin S Trimethoprim/Sulfa S Vancomycin S Objective Assessment C Glabrata sepsis - 07/27 - line removed and positive 07/29. OFF Levophed ? DIC with elevated INR - platelets - stable today Acute resp failure - intubated -some infiltrates on hydrocortisone JULIO C - getting HD Fever and chills- better Acute Anemia - s/p PRBCs Urine Enterobacter and Amp res Enterococcus 07/15 EC fistula Enterovesicular fistula Abdominal excoriation MDR Enterobacter and enterococcus faecium in urine Plan Plan of Care continue micafungin, Wean Tygacil soon (07/31) Repeat Blood cults 08/01 NGTD Redosed Levofloxacin and Daptomycin 08/04. HD today will redose Dapto today after HD. Levoflox in am d/w / Ifeanyi Will need ECHO Will need Optho eval Monitor labs this am and in am Critically ill ABBY MOTT MD Aug 06, 2016 07:48
[2016-08-06] MEDS ORDERED: IV NORMAL SALINE 1000ML BAG 1,000 ML IV PRN ×2 (08:21)
[2016-08-06 08:23] LABS: CALCIUM 8.9 mg/dL (8.5-10.1); CREATININE 1.4 mg/dL (0.6-1.0); GFR 46.3; POTASSIUM 3.1 mmol/L (3.5-5.1)
[2016-08-06] MEDS ORDERED: 0.9 % SODIUM CHLORIDE 10 ML DISP.SYRIN. IV PRN ×2 (08:30)
[2016-08-06] MEDS ORDERED: DIALYSIS PATIENT. MC PRN (08:30)
[2016-08-06] MEDS ORDERED: DIPHENHYDRAMINE 50 MG/ML VIAL IV PRN ×2 (08:30)
[2016-08-06 08:38] LABS: BASO % 0 % (0-3); EOS % 0 % (0-3); HEMATOCRIT 25.1 % (36.0-47.0); HEMOGLOBIN 8.2 g/dL (12.0-15.5); LYMPH % 12 % (24-48); MEAN CORPUSCULAR HEMOGLOBIN 25 pg (25-35); MEAN CORPUSCULAR HGB CONC 33 g/dL (31-37); MEAN CORPUSCULAR VOLUME 78 fL (79-100); MONO % 7 % (0-9); NEUT % 81 % (31-73); PLATELET COUNT 49 x10^3/uL (140-400); RED BLOOD COUNT 3.24 x10^6/uL (3.50-5.40); RED CELL DISTRIBUTION WIDTH 20.4 % (11.5-14.5); WHITE BLOOD COUNT 8.2 x10^3/uL (4.0-11.0)
[2016-08-06 08:49] LABS: FIO2 ABG 40%; PCO2 ABG 30 mmHg (35-46); PH ABG 7.51 (7.35-7.45)
--- NOTE | 2016-08-06 09:09 | PDOC ---
PROGRESS NOTES Subjective Subjective c/c - f/u of DIC ROS - mild bleed at HD cath site and fistula site Objective Objective Vital Signs Date Time Temp Pulse Resp B/P Pulse Ox O2 Delivery O2 Flow Rate FiO2 08/06/16 07:46 100 Ventilator 08/06/16 06:00 94 20 155/73 08/06/16 04:00 97.8 97.8 08/04/16 03:55 50.0 Intake and Output 08/06/16 07:00 Intake Total 1962.25 ml Output Total 2245 ml Balance -282.75 ml IV Total 1834.25 ml Blood Product IV Normal Saline Flush 128 ml Output Urine Total 885 ml Other 1360 ml Physical Exam Heart: Normal S1, Normal S2 Lungs: Clear to auscultation Assessment Assessment Problems Medical Problems: (1) Abdominal pain Status: Acute (2) Enterocutaneous fistula Status: Acute (3) Sepsis Status: Acute (4) Urinary tract infection Status: Acute (5) UTI (urinary tract infection) Status: Acute IMPRESSION AND PLAN: 1. DIC - Thrombocytopenia secondary to sepsis. In addition, there is evidence of elevated PT, PTT and decreased fibrinogen which is suggestive of disseminated intravascular coagulation. I would recommend cryoprecipitate infusion today in view of mild bleed at HD cath site and Fibrinogen level only 68. 2. Anemia secondary to sepsis,disseminated intravascular coagulation, hemoglobin 8.2. Continue to monitor. 3. Sepsis, Judi glabrata positive. Appreciate ID management. 4. 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 5. Respiratory failure. She is on mechanical ventilation. Comment Review of Relevant I have reviewed the following items lucila (where applicable) has been applied. Labs Laboratory Tests Test 08/04/16 11:03 08/04/16 17:49 08/05/16 00:00 08/05/16 05:30 Glucose (Fingerstick) 161mg/dL (70-99) 194mg/dL (70-99) 190mg/dL (70-99) White Blood Count 7.5x10^3/uL (4.0-11.0) Red Blood Count 3.02x10^6/uL (3.50-5.40) Hemoglobin 7.7g/dL (12.0-15.5) Hematocrit 23.8% (36.0-47.0) Mean Corpuscular Volume 79fL (79-100) Mean Corpuscular Hemoglobin 26pg (25-35) Mean Corpuscular Hemoglobin Concent 32g/dL (31-37) Red Cell Distribution Width 20.2% (11.5-14.5) Platelet Count 46x10^3/uL (140-400) Neutrophils (%) (Auto) 83% (31-73) Lymphocytes (%) (Auto) 10% (24-48) Monocytes (%) (Auto) 7% (0-9) Eosinophils (%) (Auto) 0% (0-3) Basophils (%) (Auto) 0% (0-3) Neutrophils # (Auto) 6.3x10^3uL (1.8-7.7) Lymphocytes # (Auto) 0.8x10^3/uL (1.0-4.8) Monocytes # (Auto) 0.5x10^3/uL (0.0-1.1) Eosinophils # (Auto) 0.0x10^3/uL (0.0-0.7) Basophils # (Auto) 0.0x10^3/uL (0.0-0.2) Prothrombin Time 36.0SEC (11.7-14.0) Prothromb Time International Ratio 3.9 (0.8-1.1) Fibrinogen < 60mg/dL (200-440) Sodium Level 143mmol/L (136-145) Potassium Level 3.5mmol/L (3.5-5.1) Chloride Level 108mmol/L (98-107) Carbon Dioxide Level 25mmol/L (21-32) Anion Gap 10 (6-14) Blood Urea Nitrogen 79mg/dL (7-20) Creatinine 1.8mg/dL (0.6-1.0) Estimated GFR (Cockcroft-Gault) 34.6 Glucose Level 210mg/dL (70-99) Lactic Acid Level 2.1mmol/L (0.4-2.0) Calcium Level 8.5mg/dL (8.5-10.1) Phosphorus Level 5.1mg/dL (2.6-4.7) Magnesium Level 3.1mg/dL (1.8-2.4) Test 08/05/16 05:32 08/05/16 08:00 08/05/16 13:15 08/05/16 13:17 Glucose (Fingerstick) 186mg/dL (70-99) 133mg/dL (70-99) O2 Saturation 99% (92-99) Arterial Blood pH 7.47 (7.35-7.45) Arterial Blood pCO2 at Patient Temp 32mmHg (35-46) Arterial Blood pO2 at Patient Temp 199mmHg (65-108) Arterial Blood HCO3 23mmol/L (21-28) Arterial Blood Base Excess -1mmol/L (-3-3) FiO2 40 Prothrombin Time 16.1SEC (11.7-14.0) Prothromb Time International Ratio 1.4 (0.8-1.1) Fibrinogen 102mg/dL (200-440) Test 08/05/16 23:50 08/06/16 05:23 08/06/16 05:25 08/06/16 08:00 Glucose (Fingerstick) 153mg/dL (70-99) 175mg/dL (70-99) White Blood Count 8.2x10^3/uL (4.0-11.0) Red Blood Count 3.24x10^6/uL (3.50-5.40) Hemoglobin 8.2g/dL (12.0-15.5) Hematocrit 25.1% (36.0-47.0) Mean Corpuscular Volume 78fL (79-100) Mean Corpuscular Hemoglobin 25pg (25-35) Mean Corpuscular Hemoglobin Concent 33g/dL (31-37) Red Cell Distribution Width 20.4% (11.5-14.5) Platelet Count 49x10^3/uL (140-400) Neutrophils (%) (Auto) 81% (31-73) Lymphocytes (%) (Auto) 12% (24-48) Monocytes (%) (Auto) 7% (0-9) Eosinophils (%) (Auto) 0% (0-3) Basophils (%) (Auto) 0% (0-3) Neutrophils # (Auto) 6.6x10^3uL (1.8-7.7) Lymphocytes # (Auto) 1.0x10^3/uL (1.0-4.8) Monocytes # (Auto) 0.6x10^3/uL (0.0-1.1) Eosinophils # (Auto) 0.0x10^3/uL (0.0-0.7) Basophils # (Auto) 0.0x10^3/uL (0.0-0.2) Fibrinogen 68mg/dL (200-440) Sodium Level 145mmol/L (136-145) Potassium Level 3.1mmol/L (3.5-5.1) Chloride Level 105mmol/L (98-107) Carbon Dioxide Level 27mmol/L (21-32) Anion Gap 13 (6-14) Blood Urea Nitrogen 72mg/dL (7-20) Creatinine 1.4mg/dL (0.6-1.0) Estimated GFR (Cockcroft-Gault) 46.3 Glucose Level 177mg/dL (70-99) Lactic Acid Level 2.0mmol/L (0.4-2.0) Calcium Level 8.9mg/dL (8.5-10.1) Phosphorus Level 4.8mg/dL (2.6-4.7) Magnesium Level 2.6mg/dL (1.8-2.4) O2 Saturation 99% (92-99) Arterial Blood pH 7.51 (7.35-7.45) Arterial Blood pCO2 at Patient Temp 30mmHg (35-46) Arterial Blood pO2 at Patient Temp 208mmHg (65-108) Arterial Blood HCO3 24mmol/L (21-28) Arterial Blood Base Excess 1mmol/L (-3-3) FiO2 40% Laboratory Tests Test 08/05/16 13:15 08/05/16 13:17 08/05/16 23:50 08/06/16 05:23 Prothrombin Time 16.1SEC (11.7-14.0) Prothromb Time International Ratio 1.4 (0.8-1.1) Fibrinogen 102mg/dL (200-440) Glucose (Fingerstick) 133mg/dL (70-99) 153mg/dL (70-99) 175mg/dL (70-99) Test 08/06/16 05:25 08/06/16 08:00 White Blood Count 8.2x10^3/uL (4.0-11.0) Red Blood Count 3.24x10^6/uL (3.50-5.40) Hemoglobin 8.2g/dL (12.0-15.5) Hematocrit 25.1% (36.0-47.0) Mean Corpuscular Volume 78fL (79-100) Mean Corpuscular Hemoglobin 25pg (25-35) Mean Corpuscular Hemoglobin Concent 33g/dL (31-37) Red Cell Distribution Width 20.4% (11.5-14.5) Platelet Count 49x10^3/uL (140-400) Neutrophils (%) (Auto) 81% (31-73) Lymphocytes (%) (Auto) 12% (24-48) Monocytes (%) (Auto) 7% (0-9) Eosinophils (%) (Auto) 0% (0-3) Basophils (%) (Auto) 0% (0-3) Neutrophils # (Auto) 6.6x10^3uL (1.8-7.7) Lymphocytes # (Auto) 1.0x10^3/uL (1.0-4.8) Monocytes # (Auto) 0.6x10^3/uL (0.0-1.1) Eosinophils # (Auto) 0.0x10^3/uL (0.0-0.7) Basophils # (Auto) 0.0x10^3/uL (0.0-0.2) Fibrinogen 68mg/dL (200-440) Sodium Level 145mmol/L (136-145) Potassium Level 3.1mmol/L (3.5-5.1) Chloride Level 105mmol/L (98-107) Carbon Dioxide Level 27mmol/L (21-32) Anion Gap 13 (6-14) Blood Urea Nitrogen 72mg/dL (7-20) Creatinine 1.4mg/dL (0.6-1.0) Estimated GFR (Cockcroft-Gault) 46.3 Glucose Level 177mg/dL (70-99) Lactic Acid Level 2.0mmol/L (0.4-2.0) Calcium Level 8.9mg/dL (8.5-10.1) Phosphorus Level 4.8mg/dL (2.6-4.7) Magnesium Level 2.6mg/dL (1.8-2.4) O2 Saturation 99% (92-99) Arterial Blood pH 7.51 (7.35-7.45) [facility] (35-46[facility] Arterial Blood pO2 at Patient Temp 208mmHg (65-108) Arterial Blood HCO3 24mmol/L (21-28) Arterial Blood Base Excess 1mmol/L (-3-3) FiO2 40% Microbiology 08/01/16 Blood Culture - Preliminary, Resulted NO GROWTH AFTER 4 DAYS 07/15/16 Urine Culture - Final, Complete 07/15/16 Urine Culture Result 1 (ROYA) - Final, Complete 07/15/16 Urine Culture Result 2 (ROYA) - Final, Complete 07/15/16 Antimicrobic Susceptibility - Final, Complete 07/29/16 Aerobic Culture - Final, Complete 07/29/16 Aerobic Culture Result 1 (ROYA) - Final, Complete Medications Current Medications Piperacillin Sod/ Tazobactam Sod/ Sodium Chloride (Zosyn/Iv Sodium Chloride 0.9 % 100ml) 100 ml @ 200 mls/hr 1X ONCE IV Last administered on 07/15/16 22:56; Start 07/15/16 at 22:00; Stop 07/15/16 at 22:29; Status DC Fentanyl Citrate 50 mcg 50 mcg PRN Q15MIN PRN IV PAIN GREATER THAN 3/10 Last administered on 07/16/16 00:30; Start 07/15/16 at 21:45; Stop 07/16/16 at 02:00; Status DC Sodium Chloride 1,000 ml @ 1,000 mls/hr 1X ONCE IV Last administered on 21:59; Start 07/15/16 at 22:00; Stop 07/15/16 at 22:59; Status DC Sodium Chloride (Iv Sodium Chloride 0.9% 500ml Bag) 500 ml @ 500 mls/hr 1X ONCE IV Last administered on 07/15/16 22:00; Start 07/15/16 at 22:00; Stop at 22:59; Status DC Ondansetron HCl (Zofran) 4 mg PRN Q8HRS PRN IV NAUSEA/VOMITING; Start 07/15/16 at 23:30; Stop 07/16/16 at 08:52; Status DC Fentanyl Citrate 50 mcg 50 mcg PRN Q2HR PRN IV SEVERE PAIN Last administered on 07/16/16 08:10; Start 07/15/16 at 23:30; Stop 07/16/16 at 08:52; Status DC Sodium Chloride (Iv Sodium Chloride 0.9% 1000ml Bag) 1,000 ml @ 150 mls/hr Q6H40M IV Last administered on 07/15/16 02:00; Start 07/15/16 at 23:45; Stop 07/16/16 at 08:52; Status DC Acetaminophen (Tylenol) 650 mg PRN Q4HRS PRN PO FEVER; Start 07/15/16 at 23:30; Stop 07/16/16 at 23:29; Status DC Info (Do NOT chart on this placeholder) 1 each PRN DAILY PRN MC NEEDS VERIFICATION; Start 07/16/16 at 03:00; Status Cancel Acetaminophen 650 mg 650 mg PRN Q4HRS PRN PO MILD PAIN / TEMP Last administered on 07/28/16 07:42; Start 07/16/16 at 08:45; Stop 07/29/16 at 08:33 ; Status DC Piperacillin Sod/ Tazobactam Sod 3.375 gm/Sodium Chloride 50 ml @ 100 mls/hr Q6HRS IV Last administered on 07/18/16 05:50; Start 07/16/16 at 10:00; Stop 07/18 at 13:28; Status DC Linezolid (Zyvox Premix) 300 ml @ 300 mls/hr Q12HR IV Last administered on 07/18 08:34; Start 07/16/16 at 10:00; Stop 07/18/16 at 13:28; Status DC Hydromorphone HCl (Dilaudid) 2 mg PRN Q4HRS PRN IV MODERATE PAIN Last administered on 07/28/16 23:33; Start 07/16/16 at 08:45 Hydromorphone HCl (Dilaudid) 4 mg PRN Q4HRS PRN IV SEVERE PAIN Last administered on 07/30/16 09:23; Start 07/16/16 at 08:45; Stop 07/31/16 at 15:01 ; Status DC Pantoprazole Sodium (Protonix) 40 mg DAILYAC PO Last administered on 07/27/16 11:11; Start 07/16/16 at 09:30; Stop 07/29/16 at 08:44; Status DC Hyoscyamine (Anaspaz) 0.125 mg Q6HRS PO Last administered on 07/20/16 05:20; Start 07/16/16 at 12:00; Stop 07/20/16 at 08:58; Status DC Phenazopyridine HCl (Pyridium) 200 mg TID PO Last administered on 07/20/16 08: 25; Start 07/16/16 at 09:30; Stop 07/20/16 at 08:58; Status DC Lorazepam (Ativan) 0.5 mg PRN BID PRN PO ANXIETY / AGITATION Last administered on 07/29/16 02:16; Start 07/16/16 at 08:45; Stop 07/31/16 at 15:01; Status DC Simethicone (Gas-X) 80 mg PRN Q4HRS PRN PO GAS / BLOATING Last administered on 07/24/16 22:30; Start 07/16/16 at 08:45; Stop 07/31/16 at 15:01; Status DC Zolpidem Tartrate 5 mg 5 mg PRN QHS PRN PO INSOMNIA Last administered on 23:14; Start 07/16/16 at 08:45; Stop 07/31/16 at 15:01; Status DC Potassium Chloride/Dextrose/ Sod Cl 1,000 ml @ 80 mls/hr [id number] IV Last administered on 07/16/16 10:54; Start 07/16/16 at 09:30; Stop 07/16/16 at 21:59; Status DC Fluconazole/ Sodium Chloride (Diflucan 200mg/ 100ml Premix) 100 ml @ 100 mls/ hr Q24H IV Last administered on 07/18/16 11:43; Start 07/16/16 at 11:00; Stop at 13:28; Status DC Info 1 each 1 each PRN DAILY PRN MC SEE COMMENTS Last administered on 12:41; Start 07/16/16 at 10:00; Stop 08/01/16 at 11:24; Status DC Sodium Chloride 220 meq/Sodium Acetate 90 meq/ Potassium Chloride 50 meq/ Potassium Acetate 15 meq/Potassium Phosphate 10 mmol/ Magnesium Sulfate 50 meq/ Calcium Gluconate 6 meq/ Multivitamins/ Minerals 10 ml/ Chromium/Copper/ Manganese/Seleni/ Zn 1 ml/Total Parenteral Nutrition/Amino Acids/Dextro... 1, 920 ml @ 80 mls/hr TPN CONT IV ; Start 07/16/16 at 22:00; Stop 07/16/16 at 22:00 ; Status DC Sodium Chloride/ Sodium Acetate/ Potassium Chloride/ Potassium Acetate/ Potassium Phosphate/ Magnesium Sulfate/ Calcium Gluconate/ Multivitamins/ Minerals/Chromium/ Copper/Manganese/ Seleni/Zn/Total Parenteral Nutrition/Amino Acids/Dextrose/ Fat Emulsion Intravenous (Sodium Chlori... 1,820 ml @ 75.833 mls/ hr TPN CONT IV Last administered on 07/16/16 21:03; Start 07/16/16 at 22: 00; Stop 07/17/16 at 21:59; Status DC Ondansetron HCl (Zofran) 4 mg PRN Q6HRS PRN IV NAUSEA/VOMITING Last administered on 07/21/16 08:48; Start 07/16/16 at 17:15; Stop 07/31/16 at 15:01; Status DC Diphenhydramine HCl (Benadryl) 25 mg PRN Q6HRS PRN PO ITCHING Last administered on 07/25/16 23:38; Start 07/16/16 at 17:45; Stop 07/31/16 at 15:01 ; Status DC Lidocaine (Xylocaine) 1 sang BID TP Last administered on 08/05/16 20:57; Start 07/17/16 at 09:00 Zinc Oxide 1 sang 1 sang BID TP Last administered on 08/05/16 20:57; Start at 09:30 Sodium Chloride/ Sodium Acetate/ Potassium Chloride/ Potassium Acetate/ Potassium Phosphate/ Magnesium Sulfate/ Calcium Gluconate/ Multivitamins/ Minerals/Chromium/ Copper/Manganese/ Seleni/Zn/Total Parenteral Nutrition/Amino Acids/Dextrose/ Fat Emulsion Intravenous (Sodium Chlori... 1,920 ml @ 80 mls/ hr TPN CONT IV Last administered on 07/17/16 22:13; Start 07/17/16 at 22:00; Stop 07/18/16 at 21:59; Status DC Furosemide 40 mg 40 mg 1X ONCE IVP Last administered on 07/18/16 11:43; Start 07/18/16 at 11:00; Stop 07/18/16 at 11:07; Status DC Sodium Chloride 220 meq/Sodium Acetate 90 meq/ Potassium Chloride 50 meq/ Potassium Acetate 15 meq/Potassium Phosphate 10 mmol/ Magnesium Sulfate 50 meq/ Calcium Gluconate 3 meq/ Multivitamins/ Minerals 10 ml/ Chromium/Copper/ Manganese/Seleni/ Zn 1 ml/Total Parenteral Nutrition/Amino Acids/Dextro... 1, 920 ml @ 80 mls/hr TPN CONT IV Last administered on 07/19/16 00:03; Start 07/18/16 at 22:00; Stop 07/19/16 at 21:59; Status DC Meropenem 1 gm/ Sodium Chloride 100 ml @ 200 mls/hr Q8HRS IV Last administered on 07/20/16 05:21; Start 07/18/16 at 14:00; Stop 07/20/16 at 11:25; Status DC Micafungin Sodium 100 mg/Dextrose 100 ml @ 100 mls/hr Q24H IV Last administered on 07/19/16 15:05; Start 07/18/16 at 14:00; Stop 07/20/16 at 11:25; Status DC Daptomycin/Sodium Chloride (Cubicin/Iv Sodium Chloride 0.9% 50ml) 50 ml @ 100 mls/hr Q24H IV Last administered on 07/19/16 16:56; Start 07/18/16 at 15:00; Stop 07/20/16 at 11:25; Status DC Alteplase, Recombinant (Cathflo) 2 mg 1X ONCE INT CAT Last administered on 07/19 06:24; Start 07/19/16 at 07:00; Stop 07/19/16 at 07:01; Status DC Gentamicin Sulfate 1 each 1 each PRN DAILY PRN MC SEE COMMENTS Last administered on 07/25/16 15:31; Start 07/19/16 at 12:15; Stop 07/25/16 at 16:14 ; Status DC Gentamicin Sulfate/Sodium Chloride (Iv Sodium Chloride 0.9% 100ml) 106.75 ml @ 106.75 mls/hr Q24H IV Last administered on 07/25/16 15:31; Start 07/19/16 at 13 :00; Stop 07/25/16 at 16:12; Status DC Gentamicin Sulfate 1 each 1 each 1X ONCE MC Last administered on 07/19/16 23: 00; Start 07/19/16 at 23:00; Stop 07/19/16 at 23:01; Status DC Sodium Chloride/ Sodium Acetate/ Potassium Chloride/ Potassium Acetate/ Potassium Phosphate/ Magnesium Sulfate/ Calcium Gluconate/ Multivitamins/ Minerals/Chromium/ Copper/Manganese/ Seleni/Zn/Total Parenteral Nutrition/Amino Acids/Dextrose/ Fat Emulsion Intravenous (Sodium Chlori... 1,920 ml @ 80 mls/ hr TPN CONT IV Last administered on 07/19/16 20:51; Start 07/19/16 at 22:00; Stop 07/20/16 at 21:59; Status DC Hyoscyamine (Anaspaz) 0.125 mg PRN Q6HRS PRN PO BLADDER SPASM; Start 07/20/16 at 09:00; Stop 07/31/16 at 15:01; Status DC Phenazopyridine HCl 200 mg 200 mg PRN TID PRN PO BLADDER SPASM Last administered on 07/21/16 20:14; Start 07/20/16 at 09:00; Stop 07/31/16 at 15:01; Status DC Linezolid 300 ml @ 300 mls/hr Q12HR IV Last administered on 07/25/16 09:02; Start 07/20/16 at 12:00; Stop 07/25/16 at 16:12; Status DC Sodium Chloride 220 meq/Sodium Acetate 90 meq/ Potassium Chloride 50 meq/ Potassium Acetate 15 meq/Potassium Phosphate 10 mmol/ Magnesium Sulfate 50 meq/ Calcium Gluconate 3 meq/ Multivitamins/ Minerals 10 ml/ Chromium/Copper/ Manganese/Seleni/ Zn 1 ml/Total Parenteral Nutrition/Amino Acids/Dextro... 1, 920 ml @ 80 mls/hr TPN CONT IV Last administered on 07/20/16 21:30; Start 07/20/16 at 22:00; Stop 07/21/16 at 21:59; Status DC Sodium Chloride/ Sodium Acetate/ Potassium Chloride/ Potassium Acetate/ Potassium Phosphate/ Magnesium Sulfate/ Multivitamins/ Minerals/Chromium/ Copper /Manganese/ Seleni/Zn/Total Parenteral Nutrition/Amino Acids/Dextrose/ Fat Emulsion Intravenous (Sodium Chloride/ Potass... 1,920 ml @ 80 mls/hr TPN CONT IV Last administered on 07/21/16 22:05; Start 07/21/16 at 22:00; Stop at 21:59; Status DC Alteplase, Recombinant 2 mg 2 mg PRN DAILY PRN INT CAT INFLAMMATION Last administered on 07/27/16 11:31; Start 07/21/16 at 15:00 Sodium Chloride 220 meq/Sodium Acetate 90 meq/ Potassium Chloride 50 meq/ Potassium Acetate 15 meq/Potassium Phosphate 10 mmol/ Magnesium Sulfate 50 meq/ Multivitamins/ Minerals 10 ml/ Chromium/Copper/ Manganese/Seleni/ Zn 1 ml/Total Parenteral Nutrition/Amino Acids/Dextrose/ Fat Emuls... 1,920 ml @ 80 mls/hr TPN CONT IV Last administered on 07/22/16 20:53; Start 07/22/16 at 22:00; Stop 07/23/16 at 21:59; Status DC Sodium Chloride/ Sodium Acetate/ Potassium Chloride/ Potassium Acetate/ Potassium Phosphate/ Magnesium Sulfate/ Multivitamins/ Minerals/Chromium/ Copper /Manganese/ Seleni/Zn/Total Parenteral Nutrition/Amino Acids/Dextrose/ Fat Emulsion Intravenous (Sodium Chloride/ Potass... 1,920 ml @ 80 mls/hr TPN CONT IV Last administered on 07/23/16 21:16; Start 07/23/16 at 22:00; Stop 07/24 at 21:59; Status DC Gentamicin Sulfate 1 each 1 each 1X ONCE MC ; Start 07/23/16 at 22:00; Stop 07/23 at 22:01; Status Cancel Sodium Chloride/ Sodium Acetate/ Potassium Chloride/ Potassium Acetate/ Potassium Phosphate/ Magnesium Sulfate/ Multivitamins/ Minerals/Chromium/ Copper /Manganese/ Seleni/Zn/Total Parenteral Nutrition/Amino Acids/Dextrose/ Fat Emulsion Intravenous (Sodium Chloride/ Potass... 1,920 ml @ 80 mls/hr TPN CONT IV Last administered on 07/24/16 21:15; Start 07/24/16 at 22:00; Stop 04/30 at 21:59; Status DC Gentamicin Sulfate 1 each 1X ONCE MC ; Start 07/25/16 at 12:30; Stop 07/25/16 at 12:31; Status Cancel Amlodipine Besylate 5 mg 5 mg DAILY PO Last administered on 07/27/16 11:12; Start 07/25/16 at 12:00; Stop 07/29/16 at 08:44; Status DC Sodium Chloride 220 meq/Sodium Acetate 90 meq/ Potassium Chloride 30 meq/ Potassium Acetate 15 meq/Potassium Phosphate 10 mmol/ Magnesium Sulfate 50 meq/ Multivitamins/ Minerals 10 ml/ Chromium/Copper/ Manganese/Seleni/ Zn 1 ml/Total Parenteral Nutrition/Amino Acids/Dextrose/ Fat Emuls... 1,920 ml @ 80 mls/hr TPN CONT IV Last administered on 07/25/16 22:25; Start 07/25/16 at 22:00; Stop 07/26/16 at 21:59; Status DC Sodium Chloride/ Sodium Acetate/ Potassium Chloride/ Potassium Acetate/ Potassium Phosphate/ Magnesium Sulfate/ Multivitamins/ Minerals/Chromium/ Copper /Manganese/ Seleni/Zn/Total Parenteral Nutrition/Amino Acids/Dextrose/ Fat Emulsion Intravenous (Sodium Chloride/ Potass... 1,920 ml @ 80 mls/hr TPN CONT IV Last administered on 07/26/16 23:16; Start 07/26/16 at 22:00; Stop at 21:59; Status DC Furosemide 20 mg 20 mg 1X ONCE IVP Last administered on 07/27/16 11:31; Start 07/27/16 at 09:00; Stop 07/27/16 at 09:01; Status DC Daptomycin 340 mg/ Sodium Chloride 50 ml @ 100 mls/hr Q24H IV Last administered on 07/29/16 15:05; Start 07/27/16 at 13:00; Stop 07/30/16 at 07:25 ; Status DC Piperacillin Sod/ Tazobactam Sod 3.375 gm/Sodium Chloride 50 ml @ 100 mls/hr Q6HRS IV Last administered on 07/30/16 05:30; Start 07/27/16 at 12:30; Stop at 07:25; Status DC Fluconazole/ Sodium Chloride 100 ml @ 100 mls/hr Q24H IV Last administered on 07/28/16 13:32; Start 07/27/16 at 13:00; Stop 07/29/16 at 00:53; Status DC Sodium Chloride 1,000 ml @ 1,000 mls/hr 1X ONCE IV Last administered on 12:34; Start 07/27/16 at 12:30; Stop 07/27/16 at 13:29; Status DC Sodium Chloride 220 meq/Sodium Acetate 90 meq/ Potassium Chloride 30 meq/ Potassium Acetate 15 meq/Potassium Phosphate 10 mmol/ Magnesium Sulfate 45 meq/ Multivitamins/ Minerals 10 ml/ Chromium/Copper/ Manganese/Seleni/ Zn 1 ml/Total Parenteral Nutrition/Amino Acids/Dextrose/ Fat Emuls... 1,920 ml @ 80 mls/hr TPN CONT IV Last administered on 07/27/16 22:38; Start 07/27/16 at 22:00; Stop 07/28/16 at 21:59; Status DC Sodium Chloride (Iv Sodium Chloride 0.9% 1000ml Bag) 1,000 ml @ 45 mls/hr [id number] IV Last administered on 07/28/16 03:24; Start 07/27/16 at 17:00; Stop 07/28/16 at 10:27; Status DC Acetaminophen 650 mg 650 mg PRN Q6HRS PRN ND fever Last administered on 03:57; Start 07/27/16 at 16:30; Stop 07/29/16 at 08:33; Status DC Sodium Chloride 1,000 ml @ 427.5 mls/ hr Q2H21M IV Last administered on 19:30; Start 07/27/16 at 19:30; Stop 07/27/16 at 23:30; Status DC Sodium Chloride 220 meq/Sodium Acetate 90 meq/ Potassium Chloride 30 meq/ Potassium Acetate 15 meq/Potassium Phosphate 10 mmol/ Magnesium Sulfate 45 meq/ Multivitamins/ Minerals 10 ml/ Chromium/Copper/ Manganese/Seleni/ Zn 1 ml/Total Parenteral Nutrition/Amino Acids/Dextrose/ Fat Emuls... 1,920 ml @ 80 mls/hr TPN CONT IV Last administered on 07/28/16 21:43; Start 07/28/16 at 22:00; Stop 07/29/16 at 21:59; Status DC Micafungin Sodium/ Dextrose (Mycamine) 100 ml @ 100 mls/hr Q24H IV Last administered on 08/06/16 00:30; Start 07/29/16 at 01:00 Lorazepam (Ativan) 0.05 mg PRN Q4HRS PRN IV ANXIETY / AGITATION; Start at 02:30; Stop 07/29/16 at 02:48; Status DC Lorazepam (Ativan) 0.5 mg PRN Q4HRS PRN IV ANXIETY / AGITATION Last administered on 07/29/16 03:18; Start 07/29/16 at 03:00 Acetaminophen (Tylenol) 650 mg PRN Q4HRS PRN ND MILD PAIN / TEMP; Start at 08:30 Ketorolac Tromethamine (Toradol) 30 mg PRN Q6HRS PRN IV PAIN/FEVER Last administered on 07/30/16 00:50; Start 07/29/16 at 08:30; Stop 07/30/16 at 13:01 ; Status DC Pantoprazole Sodium 40 mg 40 mg DAILYAC IVP Last administered on 08/05/16 14: 26; Start 07/29/16 at 09:00 Sodium Chloride 1,000 ml @ 45 mls/hr [id number] IV Last administered on 09:17; Start 07/29/16 at 08:45; Stop 07/31/16 at 15:01; Status DC Sodium Chloride/ Sodium Acetate/ Potassium Chloride/ Potassium Acetate/ Potassium Phosphate/ Magnesium Sulfate/ Multivitamins/ Minerals/Chromium/ Copper /Manganese/ Seleni/Zn/Total Parenteral Nutrition/Amino Acids/Dextrose/ Fat Emulsion Intravenous (Sodium Chloride/ Potass... 1,920 ml @ 80 mls/hr TPN CONT IV Last administered on 07/29/16 22:06; Start 07/29/16 at 22:00; Stop at 21:59; Status DC Lidocaine/Sodium Bicarbonate 20 ml 20 ml STK-MED ONCE IJ ; Start 07/29/16 at 13: 13; Stop 07/29/16 at 13:14; Status DC Heparin Sodium/ Sodium Chloride 500 ml @ As Directed STK-MED ONCE .ROUTE ; Start 07/29/16 at 13:13; Stop 07/29/16 at 13:14; Status DC Lidocaine/ Epinephrine (Xylocaine 1%-Epi 1:100,000) 20 ml STK-MED ONCE .ROUTE ; Start 07/29/16 at 13:22; Stop 07/29/16 at 13:23; Status DC Midazolam HCl (Versed) 5 mg STK-MED ONCE .ROUTE ; Start 07/29/16 at 13:32; Stop 07/29/16 at 13:33; Status DC Fentanyl Citrate (Fentanyl 5ml Vial) 250 mcg STK-MED ONCE .ROUTE ; Start at 13:32; Stop 07/29/16 at 13:33; Status DC Heparin Sodium/ Sodium Chloride 1,000 unit 1X ONCE IART Last administered on 13:45; Start 07/29/16 at 13:45; Stop 07/29/16 at 13:48; Status DC Midazolam HCl (Versed) 5 mg 1X ONCE IV Last administered on 07/29/16 13:45; Start 07/29/16 at 13:45; Stop 07/29/16 at 13:48; Status DC Fentanyl Citrate (Fentanyl 5ml Vial) 250 mcg 1X ONCE IV Last administered on 13:45; Start 07/29/16 at 13:45; Stop 07/29/16 at 13:48; Status DC Lidocaine/ Epinephrine 20 ml 20 ml 1X ONCE IJ Last administered on 07/29/16 13:45; Start 07/29/16 at 13:45; Stop 07/29/16 at 13:48; Status DC Sodium Chloride 220 meq/Sodium Acetate 90 meq/ Potassium Chloride 15 meq/ Potassium Acetate 30 meq/Potassium Phosphate 10 mmol/ Magnesium Sulfate 45 meq/ Multivitamins/ Minerals 10 ml/ Chromium/Copper/ Manganese/Seleni/ Zn 1 ml/Total Parenteral Nutrition/Amino Acids/Dextrose/ Fat Emuls... 1,920 ml @ 80 mls/hr TPN CONT IV ; Start 07/30/16 at 22:00; Stop 07/31/16 at 21:59; Status DC Norepinephrine Bitartrate 8 mg/ Sodium Chloride 258 ml @ 1.93 mls/hr 1X ONCE IV Last administered on 07/30/16 11:17; Start 07/30/16 at 11:15; Stop at 15:43; Status DC Norepinephrine Bitartrate/Sodium Chloride (Levophed Vial/ Iv Sodium Chloride 0.9 % 250ml) 258 ml @ 0 mls/hr CONT PRN IV SEE I/O RECORD Last administered on 08/02 19:54; Start 07/30/16 at 11:15; Stop 08/04/16 at 09:29; Status DC Furosemide 60 mg 60 mg 1X ONCE IVP Last administered on 07/30/16 11:14; Start 07/30/16 at 11:15; Stop 07/30/16 at 11:16; Status DC Sodium Chloride 500 ml @ 500 mls/hr Q1H IV Last administered on 07/30/16 17: 04; Start 07/30/16 at 14:30; Stop 07/30/16 at 15:29; Status DC Albumin Human 100 ml @ 100 mls/hr Q8HRS IV Last administered on 07/31/16 05: 37; Start 07/30/16 at 14:30; Stop 07/31/16 at 06:59; Status DC Furosemide/Sodium Chloride (Lasix Drip/Iv Sodium Chloride 0.9% 100ml) 100 ml @ 0 mls/hr CONT PRN IV SEE I/O RECORD Last administered on 07/31/16 03:17; Start 07/30/16 at 14:30; Stop 08/01/16 at 13:19; Status DC Ondansetron HCl (Zofran) 8 mg PRN Q8HRS PRN IV NAUSEA/VOMITING Last administered on 07/30/16 14:38; Start 07/30/16 at 14:30 Sodium Bicarbonate 50 meq 50 meq 1X ONCE IV Last administered on 07/30/16 14: 43; Start 07/30/16 at 14:30; Stop 07/30/16 at 14:31; Status DC Heparin Sodium/ Sodium Chloride 500 ml @ As Directed STK-MED ONCE .ROUTE ; Start 07/30/16 at 14:49; Stop 07/30/16 at 14:50; Status DC Lidocaine HCl 20 ml STK-MED ONCE .ROUTE ; Start 07/30/16 at 14:49; Stop at 14:50; Status DC Midazolam HCl (Versed) 2 mg STK-MED ONCE .ROUTE ; Start 07/30/16 at 15:19; Stop 07/30/16 at 15:20; Status DC Heparin Sodium/ Sodium Chloride 1,000 unit 1X ONCE IART Last administered on 15:44; Start 07/30/16 at 15:45; Stop 07/30/16 at 15:46; Status DC Midazolam HCl (Versed) 1.5 mg 1X ONCE IV Last administered on 07/30/16 15:44 ; Start 07/30/16 at 15:45; Stop 07/30/16 at 15:46; Status DC Lidocaine HCl 20 ml 1X ONCE IJ Last administered on 07/30/16 15:44; Start at 15:45; Stop 07/30/16 at 15:46; Status DC Heparin Sodium (Porcine) 76857 unit 10,000 unit STK-MED ONCE .ROUTE ; Start at 15:54; Stop 07/30/16 at 15:55; Status DC Fentanyl Citrate 30 ml @ 0 mls/hr CONT PRN PRN IV PROTOCOL Last administered on 08/06/16 03:50; Start 07/30/16 at 16:45 Sodium Bicarbonate/ Dextrose 1,150 ml @ 125 mls/hr 1X ONCE IV Last administered on 07/30/16 18:34; Start 07/30/16 at 17:30; Stop 07/31/16 at 02:41 ; Status DC Succinylcholine Chloride 200 mg 200 mg STK-MED ONCE .ROUTE ; Start 07/30/16 at 19:47; Stop 07/30/16 at 19:48; Status DC Propofol 100 ml @ As Directed STK-MED ONCE IV ; Start 07/30/16 at 19:48; Stop 07/30/16 at 19:49; Status DC Midazolam HCl (Versed 100mg/ 100ml Premix) 100 ml @ 0 mls/hr CONT PRN IV SEE I/ O RECORD Last administered on 08/03/16 12:18; Start 07/30/16 at 21:15 Sodium Bicarbonate 50 meq 50 meq 1X ONCE IV Last administered on 07/30/16 22: 15; Start 07/30/16 at 22:30; Stop 07/30/16 at 22:31; Status DC Dopamine HCl/ Dextrose 250 ml @ 11.513 mls/ hr CONT PRN IV SEE I/O RECORD Last administered on 07/31/16 20:16; Start 07/30/16 at 22:15; Stop 08/04/16 at 09:29; Status DC Sodium Bicarbonate/ Dextrose 1,150 ml @ 125 mls/hr Q9H12M IV Last administered on 08/01/16 09:30; Start 07/31/16 at 03:00; Stop 08/01/16 at 13:19 ; Status DC Propofol (Diprivan) 1,000 mg STK-MED ONCE IV ; Start 07/30/16 at 20:00; Stop at 08:16; Status DC Succinylcholine Chloride 200 mg 200 mg STK-MED ONCE .ROUTE ; Start 07/30/16 at 20:00; Stop 07/31/16 at 08:16; Status DC Tigecycline 50 mg/ Sodium Chloride 50 ml @ 100 mls/hr Q12HR IV Last administered on 08/04/16 09:01; Start 07/31/16 at 21:00; Stop 08/04/16 at 10:00 ; Status DC Tigecycline/ Sodium Chloride (Tygacil/Iv Sodium Chloride 0.9% 100ml) 100 ml @ 200 mls/hr 1X ONCE IV Last administered on 07/31/16 09:22; Start 07/31/16 at 09:00; Stop 07/31/16 at 09:29; Status DC Darbepoetin Sarbjit 60 mcg 60 mcg [id number] SQ Last administered on 07/31/16 21:09 ; Start 07/31/16 at 21:00 Albumin Human 100 ml @ 100 mls/hr 1X ONCE IV Last administered on 07/31/16 11:40; Start 07/31/16 at 11:15; Stop 07/31/16 at 12:14; Status DC Albumin Human 100 ml @ 100 mls/hr 1X ONCE IV Last administered on 07/31/16 12:03; Start 07/31/16 at 11:15; Stop 07/31/16 at 12:14; Status DC Sodium Chloride (Iv Sodium Chloride 0.9% 1000ml Bag) 1,000 ml @ 1,000 mls/hr Q1H PRN IV hypotension; Start 07/31/16 at 11:33; Stop 07/31/16 at 17:32; Status DC Info (PHARMACY MONITORING -- do not chart) 1 each PRN DAILY PRN MC SEE COMMENTS ; Start 07/31/16 at 11:45 Info (PHARMACY MONITORING -- do not chart) 1 each PRN DAILY PRN MC SEE COMMENTS ; Start 07/31/16 at 11:45; Status UNV Hydrocortisone Sodium Succinate (Solu-Cortef) 100 mg Q8HRS IV Last administered on 08/04/16 06:16; Start 08/01/16 at 07:00; Stop 08/04/16 at 09:29 ; Status DC Albuterol/ Ipratropium (Duoneb) 3 ml RTQID NEB Last administered on 08/06/16 07:32; Start 08/01/16 at 08:00 Albuterol/ Ipratropium 3 ml 3 ml STK-MED ONCE .ROUTE Last administered on 07:34; Start 08/01/16 at 06:59; Stop 08/01/16 at 07:00; Status DC Sodium Chloride 1,000 ml @ 1,000 mls/hr Q1H PRN IV hypotension; Start 08/01/16 at 06:57; Stop 08/01/16 at 12:56; Status DC Albumin Human (Albuminar) 200 ml @ 200 mls/hr 1X PRN PRN IV Hypotension; Start 08/01/16 at 07:00; Stop 08/01/16 at 12:59; Status DC Info (PHARMACY MONITORING -- do not chart) 1 each PRN DAILY PRN MC SEE COMMENTS ; Start 08/01/16 at 07:00; Status UNV Info 1 each 1 each PRN DAILY PRN MC SEE COMMENTS Last administered on 14:21; Start 08/01/16 at 13:30 Sodium Chloride 220 meq/Sodium Acetate 90 meq/ Potassium Chloride 15 meq/ Potassium Acetate 30 meq/Potassium Phosphate 10 mmol/ Magnesium Sulfate 45 meq/ Multivitamins/ Minerals 10 ml/ Chromium/Copper/ Manganese/Seleni/ Zn 1 ml/Total Parenteral Nutrition/Amino Acids/Dextrose/ Fat Emuls... 1,920 ml @ 80 mls/hr TPN CONT IV Last administered on 08/01/16 21:56; Start 08/01/16 at 22:00; Stop 08/02/16 at 21:59; Status DC Potassium Chloride (KCl Premix 20meq) 50 ml @ 50 mls/hr Q1H IV Last administered on 08/01/16 19:05; Start 08/01/16 at 17:00; Stop 08/01/16 at 18:59 ; Status DC Insulin Aspart 0-6 UNITS TIDWMEALS SQ Last administered on 08/02/16 11:33; Start 08/02/16 at 12:00; Stop 08/02/16 at 14:34; Status DC Sodium Chloride 220 meq/Sodium Acetate 90 meq/ Potassium Chloride 15 meq/ Potassium Acetate 30 meq/Magnesium Sulfate 45 meq/ Multivitamins/ Minerals 10 ml / Chromium/Copper/ Manganese/Seleni/ Zn 1 ml/Total Parenteral Nutrition/Amino Acids/Dextrose/ Fat Emulsion Intravenous 1,920 ml @ 80 mls/hr TPN CONT IV Last administered on 08/02/16 21:34; Start 08/02/16 at 22:00; Stop 08/03/16 at 21:59; Status DC Levofloxacin/ Dextrose 150 ml @ 100 mls/hr 1X ONCE IV Last administered on 14:35; Start 08/02/16 at 14:00; Stop 08/02/16 at 15:29; Status DC Daptomycin/Sodium Chloride (Cubicin/Iv Sodium Chloride 0.9% 50ml) 50 ml @ 100 mls/hr ONCE ONCE IV Last administered on 08/02/16 14:34; Start 08/02/16 at 15 :00; Stop 08/02/16 at 15:29; Status DC Insulin Aspart 0-6 UNITS Q6HRS SQ Last administered on 08/06/16 05:44; Start 08/02/16 at 18:00 Sodium Chloride (Iv Sodium Chloride 0.9% 1000ml Bag) 1,000 ml @ 1,000 mls/hr Q1H PRN IV hypotension; Start 08/03/16 at 07:26; Stop 08/03/16 at 13:25; Status DC Diphenhydramine HCl (Benadryl) 25 mg 1X PRN PRN IV ITCHING; Start 08/03/16 at 07:30; Stop 08/04/16 at 07:29; Status DC Diphenhydramine HCl (Benadryl) 25 mg 1X PRN PRN IV ITCHING; Start 08/03/16 at 07:30; Stop 08/04/16 at 07:29; Status DC Sodium Chloride (Normal Saline Flush) 10 ml 1X PRN PRN IV AP catheter pack; Start 08/03/16 at 07:30; Stop 08/04/16 at 07:29; Status DC Sodium Chloride 10 ml 10 ml 1X PRN PRN IV BOX MAKER catheter pack; Start 08/03/16 at 07:30; Stop 08/04/16 at 07:29; Status DC Sodium Chloride (Iv Sodium Chloride 0.9% 1000ml Bag) 1,000 ml @ 400 mls/hr Q2H30M PRN IV PATENCY; Start 08/03/16 at 07:26; Stop 08/03/16 at 19:25; Status DC Info 1 each 1 each PRN DAILY PRN MC SEE COMMENTS; Start 08/03/16 at 07:30; Status UNV Albumin Human 200 ml @ 200 mls/hr Q2HR IV Last administered on 08/03/16 10:00 ; Start 08/03/16 at 08:44; Stop 08/03/16 at 10:59; Status DC Sodium Chloride 160 meq/Sodium Acetate 60 meq/ Potassium Chloride 15 meq/ Potassium Acetate 30 meq/Magnesium Sulfate 25 meq/ Multivitamins/ Minerals 10 ml / Chromium/Copper/ Manganese/Seleni/ Zn 1 ml/Total Parenteral Nutrition/Amino Acids/Dextrose/ Fat Emulsion Intravenous 1,500 ml @ 62.5 mls/hr TPN CONT IV Last administered on 08/03/16 22:52; Start 08/03/16 at 22:00; Stop 08/04/16 at 21:59; Status DC Levofloxacin/ Dextrose 100 ml @ 100 mls/hr 1X ONCE IV Last administered on 10:50; Start 08/04/16 at 07:30; Stop 08/04/16 at 08:30; Status DC Daptomycin 450 mg/ Sodium Chloride 50 ml @ 100 mls/hr ONCE ONCE IV Last administered on 08/04/16 09:55; Start 08/04/16 at 08:00; Stop 08/04/16 at 08:30 ; Status DC Tigecycline/ Sodium Chloride (Tygacil/Iv Sodium Chloride 0.9% 50ml) 50 ml @ 100 mls/hr Q12HR IV Last administered on 08/05/16 20:54; Start 08/04/16 at 21: 00 Hydrocortisone Sodium Succinate 50 mg 50 mg Q8HRS IV Last administered on 05:39; Start 08/04/16 at 14:00; Stop 08/05/16 at 11:12; Status DC Furosemide 100 mg/ Sodium Chloride 100 ml @ 0 mls/hr CONT PRN IV SEE I/O RECORD Last administered on 08/05/16 18:56; Start 08/04/16 at 11:30 Sodium Chloride 160 meq/Sodium Acetate 60 meq/ Potassium Chloride 15 meq/ Potassium Acetate 30 meq/Magnesium Sulfate 25 meq/ Multivitamins/ Minerals 10 ml / Chromium/Copper/ Manganese/Seleni/ Zn 1 ml/Total Parenteral Nutrition/Amino Acids/Dextrose/ Fat Emulsion Intravenous 1,500 ml @ 62.5 mls/hr TPN CONT IV Last administered on 08/04/16 21:45; Start 08/04/16 at 22:00; Stop 08/06/16 at 08:48; Status DC Sodium Chloride 1,000 ml @ 1,000 mls/hr Q1H PRN IV hypotension; Start 08/04/16 at 12:00; Stop 08/04/16 at 17:59; Status DC Sodium Chloride (Iv Sodium Chloride 0.9% 1000ml Bag) 1,000 ml @ 400 mls/hr Q2H30M PRN IV PATENCY; Start 08/04/16 at 12:00; Stop 08/04/16 at 23:59; Status DC Info 1 each 1 each PRN DAILY PRN MC SEE COMMENTS; Start 08/04/16 at 16:30; Status UNV Levofloxacin/ Dextrose 100 ml @ 100 mls/hr 1X ONCE IV Last administered on 14:27; Start 08/05/16 at 14:00; Stop 08/05/16 at 14:59; Status DC Daptomycin/Sodium Chloride (Cubicin/Iv Sodium Chloride 0.9% 50ml) 50 ml @ 100 mls/hr 1X ONCE IV Last administered on 08/05/16 14:27; Start 08/05/16 at 14: 00; Stop 08/05/16 at 14:29; Status DC Heparin Sodium (Porcine) 10,000 unit STK-MED ONCE .ROUTE ; Start 08/05/16 at 09: 35; Stop 08/05/16 at 09:36; Status DC Lidocaine/Sodium Bicarbonate 20 ml 20 ml STK-MED ONCE IJ ; Start 08/05/16 at 09: 36; Stop 08/05/16 at 09:37; Status DC Heparin Sodium/ Sodium Chloride 500 ml @ As Directed STK-MED ONCE .ROUTE ; Start 08/05/16 at 09:36; Stop 08/05/16 at 09:37; Status DC Lidocaine/Sodium Bicarbonate (Buffered Lidocaine 1%) 2 ml 1X ONCE IJ Last administered on 08/05/16 10:04; Start 08/05/16 at 10:00; Stop 08/05/16 at 10:02 ; Status DC Heparin Sodium/ Sodium Chloride 60 unit 1X ONCE IV Last administered on 10:04; Start 08/05/16 at 10:00; Stop 08/05/16 at 10:02; Status DC Heparin Sodium (Porcine) 2,800 unit 1X ONCE INT CAT Last administered on 10:04; Start 08/05/16 at 10:00; Stop 08/05/16 at 10:02; Status DC Info (PHARMACY MONITORING -- do not chart) 1 each PRN DAILY PRN MC SEE COMMENTS ; Start 08/05/16 at 10:30; Stop 08/05/16 at 10:30; Status DC Info (PHARMACY MONITORING -- do not chart) 1 each PRN DAILY PRN MC SEE COMMENTS ; Start 08/05/16 at 10:30; Stop 08/05/16 at 10:30; Status DC Hydrocortisone Sodium Succinate 50 mg 50 mg BID IV Last administered on 20:54; Start 08/05/16 at 21:00 Sodium Chloride 160 meq/Sodium Acetate 60 meq/ Potassium Chloride 15 meq/ Potassium Acetate 30 meq/Magnesium Sulfate 25 meq/ Multivitamins/ Minerals 10 ml / Chromium/Copper/ Manganese/Seleni/ Zn 1 ml/Total Parenteral Nutrition/Amino Acids/Dextrose/ Fat Emulsion Intravenous 1,500 ml @ 62.5 mls/hr TPN CONT IV Last administered on 08/05/16 22:04; Start 08/05/16 at 22:00; Stop 08/06/16 at 21:59 Daptomycin 500 mg/ Sodium Chloride 50 ml @ 100 mls/hr Q24H IV ; Start 08/06/16 at 14:00 Sodium Chloride (Iv Sodium Chloride 0.9% 1000ml Bag) 1,000 ml @ 1,000 mls/hr Q1H PRN IV hypotension; Start 08/06/16 at 08:21; Stop 08/06/16 at 14:20 Diphenhydramine HCl (Benadryl) 25 mg 1X PRN PRN IV ITCHING; Start 08/06/16 at 08:30; Stop 08/07/16 at 08:29 Diphenhydramine HCl (Benadryl) 25 mg 1X PRN PRN IV ITCHING; Start 08/06/16 at 08:30; Stop 08/07/16 at 08:29 Sodium Chloride (Normal Saline Flush) 10 ml 1X PRN PRN IV AP catheter pack; Start 08/06/16 at 08:30; Stop 08/07/16 at 08:29 Sodium Chloride 10 ml 10 ml 1X PRN PRN IV BOX MAKER catheter pack; Start 08/06/16 at 08:30; Stop 08/07/16 at 08:29 Sodium Chloride (Iv Sodium Chloride 0.9% 1000ml Bag) 1,000 ml @ 400 mls/hr Q2H30M PRN IV PATENCY; Start 08/06/16 at 08:21; Stop 08/06/16 at 20:20 Info (PHARMACY MONITORING -- do not chart) 1 each PRN DAILY PRN MC SEE COMMENTS ; Start 08/06/16 at 08:30; Status UNV Active Scripts Active Dilaudid (Hydromorphone Hcl) 4 Mg Tablet 4 Mg PO Q6HRS Phenazopyridine Hcl 200 Mg Tablet 200 Mg PO PRN TID PRN FENTANYL 50mcg/hr (Fentanyl) 1 Each Patch.td72 1 Patch TD Q3DAYS Anaspaz (Hyoscyamine Sulfate) 0.125 Mg Tab.rapdis 0.125 Mg PO Q6HRS PRN Cefpodoxime Proxetil 200 Mg Tablet 200 Mg PO BID Sertraline Hcl 50 Mg Tablet 100 Mg PO DAILY 30 Days Protonix (Pantoprazole Sodium) 40 Mg Tablet.dr 1 Tab PO DAILY Zinc Oxide 56.7 Gm Oint...g. 1 Sang TP BID Lidocaine 35.44 Gm Oint...g. 1 Sang TP BID Ondansetron Odt (Ondansetron) 4 Mg Tab.rapdis 8 Mg PO PRN Q8HRS PRN Gas-X (Simethicone) 80 Mg Tab.chew 80 Mg PO PRN QID PRN Reported Lorazepam 0.5 Mg Tablet 0.5 Mg PO PRN BID PRN Vitals/I & O Vital Sign - Last 24 Hours 08/05/16 08/05/16 08/05/16 08/05/16 09:19 10:00 11:00 12:00 Temp 98.0 98.0 Pulse 94 96 94 Resp 20 20 20 B/P 133/70 132/66 133/70 Pulse Ox 100 100 100 100 O2 Delivery Ventilator Ventilator Ventilator Ventilator 08/05/16 08/05/16 08/05/16 08/05/16 12:00 12:00 12:16 12:33 Temp 98.1 98.1 Pulse 84 92 Resp 30 B/P 135/63 127/64 Pulse Ox 100 O2 Delivery Mechanical Ventilator Ventilator 08/05/16 08/05/16 08/05/16 08/05/16 12:47 13:00 14:00 15:00 Temp 97.7 97.7 Pulse 95 92 84 88 Resp 27 24 24 22 B/P 129/68 128/66 130/62 166/76 Pulse Ox 100 100 100 O2 Delivery Ventilator Ventilator Ventilator 08/05/16 08/05/16 08/05/16 08/05/16 15:07 15:49 16:00 16:00 Pulse 93 89 Resp 22 22 B/P 121/57 128/59 Pulse Ox 100 100 100 O2 Delivery Ventilator Ventilator Mechanical Ventilator Ventilator 08/05/16 08/05/16 08/05/16 08/05/16 16:00 17:00 17:00 17:45 Pulse 84 87 93 Resp 24 B/P 133/84 129/59 133/62 Pulse Ox 100 100 O2 Delivery Ventilator Ventilator 08/05/16 08/05/16 08/05/16 08/05/16 18:01 19:00 19:54 20:00 Temp 98.1 97.9 98.1 97.9 Pulse 88 86 87 Resp 20 20 20 B/P 134/62 122/57 119/54 Pulse Ox 100 100 100 100 O2 Delivery Ventilator Ventilator Ventilator Ventilator 08/05/16 08/05/16 08/05/16 08/05/16 20:00 20:00 21:00 22:00 Pulse 87 90 88 Resp 20 20 B/P 119/54 122/54 158/77 Pulse Ox 100 100 O2 Delivery Mechanical Ventilator Ventilator Ventilator 08/05/16 08/05/16 08/06/16 08/06/16 23:00 23:22 00:00 00:00 Temp 97.8 97.8 Pulse 87 81 Resp 20 20 B/P 119/64 118/59 Pulse Ox 100 100 100 O2 Delivery Ventilator Ventilator Mechanical Ventilator Ventilator 08/06/16 08/06/16 08/06/16 08/06/16 01:00 01:51 02:00 03:00 Pulse 82 90 86 Resp 20 20 20 B/P 127/65 113/59 136/63 Pulse Ox 100 100 100 100 O2 Delivery Ventilator Ventilator Ventilator Ventilator 08/06/16 08/06/16 08/06/16 08/06/16 03:47 04:00 04:00 05:00 Temp 97.8 97.8 Pulse 93 100 Resp 20 20 B/P 113/56 139/64 Pulse Ox 100 100 100 O2 Delivery Ventilator Mechanical Ventilator Ventilator Ventilator 08/06/16 08/06/16 08/06/16 08/06/16 05:34 06:00 07:17 07:46 Pulse 94 Resp 20 B/P 155/73 Pulse Ox 100 100 100 100 O2 Delivery Ventilator Ventilator Ventilator Ventilator Intake and Output 08/05/16 08/05/16 08/06/16 15:00 23:00 07:00 Intake Total 197.25 ml 810 ml 955 ml Output Total 205 ml 645 ml 1395 ml Balance -7.75 ml 165 ml -440 ml ENMA FINLEY MD Aug 06, 2016 09:09
--- NOTE | 2016-08-06 09:45 | PDOC ---
Dialysis Progress Note Dialysis Note Dialysis Note Seen on Hemodialysis, tolerating treatment Okay for now Vitals on Hemodialysis: 170/100 (agitated) 116 afeb General Appearance: More awake now and still intubated Neck: min JVD + JVP Chest: CTA Aditya, rare rales Heart: S1 S2 Abdomen - Soft NTND; rare BS Extremities - ++ Edema ARF/ ATN : Dialysis as below F 180 NR 3.5 Hrs 4 K 2.5 Ca 140 Na 35 HC03 Qb 350 + Qd 500+ Heparin 0 Units Uf 3-4 Kgs or to dry weight as tolerated May give 25-50 gms of 25% Albumin if needed to maintain Hemodynamic stability Treatment plan reviewed and discussed with resourcing advisor Vitals Vital Signs Vital Signs Date Time Temp Pulse Resp B/P Pulse Ox O2 Delivery O2 Flow Rate FiO2 08/06/16 09:23 100 Ventilator 08/06/16 06:00 94 20 155/73 08/06/16 04:00 97.8 97.8 08/04/16 03:55 50.0 Labs Last Labs Laboratory Tests Test 08/04/16 11:03 08/04/16 17:49 08/05/16 00:00 08/05/16 05:30 Glucose (Fingerstick) 161mg/dL (70-99) 194mg/dL (70-99) 190mg/dL (70-99) White Blood Count 7.5x10^3/uL (4.0-11.0) Red Blood Count 3.02x10^6/uL (3.50-5.40) Hemoglobin 7.7g/dL (12.0-15.5) Hematocrit 23.8% (36.0-47.0) Mean Corpuscular Volume 79fL (79-100) Mean Corpuscular Hemoglobin 26pg (25-35) Mean Corpuscular Hemoglobin Concent 32g/dL (31-37) Red Cell Distribution Width 20.2% (11.5-14.5) Platelet Count 46x10^3/uL (140-400) Neutrophils (%) (Auto) 83% (31-73) Lymphocytes (%) (Auto) 10% (24-48) Monocytes (%) (Auto) 7% (0-9) Eosinophils (%) (Auto) 0% (0-3) Basophils (%) (Auto) 0% (0-3) Neutrophils # (Auto) 6.3x10^3uL (1.8-7.7) Lymphocytes # (Auto) 0.8x10^3/uL (1.0-4.8) Monocytes # (Auto) 0.5x10^3/uL (0.0-1.1) Eosinophils # (Auto) 0.0x10^3/uL (0.0-0.7) Basophils # (Auto) 0.0x10^3/uL (0.0-0.2) Prothrombin Time 36.0SEC (11.7-14.0) Prothromb Time International Ratio 3.9 (0.8-1.1) Fibrinogen < 60mg/dL (200-440) Sodium Level 143mmol/L (136-145) Potassium Level 3.5mmol/L (3.5-5.1) Chloride Level 108mmol/L (98-107) Carbon Dioxide Level 25mmol/L (21-32) Anion Gap 10 (6-14) Blood Urea Nitrogen 79mg/dL (7-20) Creatinine 1.8mg/dL (0.6-1.0) Estimated GFR (Cockcroft-Gault) 34.6 Glucose Level 210mg/dL (70-99) Lactic Acid Level 2.1mmol/L (0.4-2.0) Calcium Level 8.5mg/dL (8.5-10.1) Phosphorus Level 5.1mg/dL (2.6-4.7) Magnesium Level 3.1mg/dL (1.8-2.4) Test 08/05/16 05:32 08/05/16 08:00 08/05/16 13:15 08/05/16 13:17 Glucose (Fingerstick) 186mg/dL (70-99) 133mg/dL (70-99) O2 Saturation 99% (92-99) Arterial Blood pH 7.47 (7.35-7.45) Arterial Blood pCO2 at Patient Temp 32mmHg (35-46) Arterial Blood pO2 at Patient Temp 199mmHg (65-108) Arterial Blood HCO3 23mmol/L (21-28) Arterial Blood Base Excess -1mmol/L (-3-3) FiO2 40 Prothrombin Time 16.1SEC (11.7-14.0) Prothromb Time International Ratio 1.4 (0.8-1.1) Fibrinogen 102mg/dL (200-440) Test 08/05/16 23:50 08/06/16 05:23 08/06/16 05:25 08/06/16 08:00 Glucose (Fingerstick) 153mg/dL (70-99) 175mg/dL (70-99) White Blood Count 8.2x10^3/uL (4.0-11.0) Red Blood Count 3.24x10^6/uL (3.50-5.40) Hemoglobin 8.2g/dL (12.0-15.5) Hematocrit 25.1% (36.0-47.0) Mean Corpuscular Volume 78fL (79-100) Mean Corpuscular Hemoglobin 25pg (25-35) Mean Corpuscular Hemoglobin Concent 33g/dL (31-37) Red Cell Distribution Width 20.4% (11.5-14.5) Platelet Count 49x10^3/uL (140-400) Neutrophils (%) (Auto) 81% (31-73) Lymphocytes (%) (Auto) 12% (24-48) Monocytes (%) (Auto) 7% (0-9) Eosinophils (%) (Auto) 0% (0-3) Basophils (%) (Auto) 0% (0-3) Neutrophils # (Auto) 6.6x10^3uL (1.8-7.7) Lymphocytes # (Auto) 1.0x10^3/uL (1.0-4.8) Monocytes # (Auto) 0.6x10^3/uL (0.0-1.1) Eosinophils # (Auto) 0.0x10^3/uL (0.0-0.7) Basophils # (Auto) 0.0x10^3/uL (0.0-0.2) Fibrinogen 68mg/dL (200-440) Sodium Level 145mmol/L (136-145) Potassium Level 3.1mmol/L (3.5-5.1) Chloride Level 105mmol/L (98-107) Carbon Dioxide Level 27mmol/L (21-32) Anion Gap 13 (6-14) Blood Urea Nitrogen 72mg/dL (7-20) Creatinine 1.4mg/dL (0.6-1.0) Estimated GFR (Cockcroft-Gault) 46.3 Glucose Level 177mg/dL (70-99) Lactic Acid Level 2.0mmol/L (0.4-2.0) Calcium Level 8.9mg/dL (8.5-10.1) Phosphorus Level 4.8mg/dL (2.6-4.7) Magnesium Level 2.6mg/dL (1.8-2.4) O2 Saturation 99% (92-99) Arterial Blood pH 7.51 (7.35-7.45) Arterial Blood pCO2 at Patient Temp 30mmHg (35-46) Arterial Blood pO2 at Patient Temp 208mmHg (65-108) Arterial Blood HCO3 24mmol/L (21-28) Arterial Blood Base Excess 1mmol/L (-3-3) FiO2 40% Laboratory Tests Test 08/05/16 13:15 08/05/16 13:17 08/05/16 23:50 08/06/16 05:23 Prothrombin Time 16.1SEC (11.7-14.0) Prothromb Time International Ratio 1.4 (0.8-1.1) Fibrinogen 102mg/dL (200-440) Glucose (Fingerstick) 133mg/dL (70-99) 153mg/dL (70-99) 175mg/dL (70-99) Test 08/06/16 05:25 08/06/16 08:00 White Blood Count 8.2x10^3/uL (4.0-11.0) Red Blood Count 3.24x10^6/uL (3.50-5.40) Hemoglobin 8.2g/dL (12.0-15.5) Hematocrit 25.1% (36.0-47.0) Mean Corpuscular Volume 78fL (79-100) Mean Corpuscular Hemoglobin 25pg (25-35) Mean Corpuscular Hemoglobin Concent 33g/dL (31-37) Red Cell Distribution Width 20.4% (11.5-14.5) Platelet Count 49x10^3/uL (140-400) Neutrophils (%) (Auto) 81% (31-73) Lymphocytes (%) (Auto) 12% (24-48) Monocytes (%) (Auto) 7% (0-9) Eosinophils (%) (Auto) 0% (0-3) Basophils (%) (Auto) 0% (0-3) Neutrophils # (Auto) 6.6x10^3uL (1.8-7.7) Lymphocytes # (Auto) 1.0x10^3/uL (1.0-4.8) Monocytes # (Auto) 0.6x10^3/uL (0.0-1.1) Eosinophils # (Auto) 0.0x10^3/uL (0.0-0.7) Basophils # (Auto) 0.0x10^3/uL (0.0-0.2) Fibrinogen 68mg/dL (200-440) Sodium Level 145mmol/L (136-145) Potassium Level 3.1mmol/L (3.5-5.1) Chloride Level 105mmol/L (98-107) Carbon Dioxide Level 27mmol/L (21-32) Anion Gap 13 (6-14) Blood Urea Nitrogen 72mg/dL (7-20) Creatinine 1.4mg/dL (0.6-1.0) Estimated GFR (Cockcroft-Gault) 46.3 Glucose Level 177mg/dL (70-99) Lactic Acid Level 2.0mmol/L (0.4-2.0) Calcium Level 8.9mg/dL (8.5-10.1) Phosphorus Level 4.8mg/dL (2.6-4.7) Magnesium Level 2.6mg/dL (1.8-2.4) O2 Saturation 99% (92-99) Arterial Blood pH 7.51 (7.35-7.45) Arterial Blood pCO2 at Patient Temp 30mmHg (35-46) Arterial Blood pO2 at Patient Temp 208mmHg (65-108) Arterial Blood HCO3 24mmol/L (21-28) Arterial Blood Base Excess 1mmol/L (-3-3) FiO2 40% Assessment Assessment Problems Medical Problems: (1) Abdominal pain Status: Acute (2) Enterocutaneous fistula Status: Acute (3) Sepsis Status: Acute (4) Urinary tract infection Status: Acute (5) UTI (urinary tract infection) Status: Acute Problems: Plan Plan of Care Problems Medical Problems: (1) Abdominal pain Status: Acute (2) Enterocutaneous fistula Status: Acute (3) Sepsis Status: Acute (4) Urinary tract infection Status: Acute (5) UTI (urinary tract infection) Status: Acute LATOSHA TATUM MD Aug 06, 2016 09:45
[2016-08-06] MEDS ORDERED: ALBUMIN HUMAN 25% 200 ML IV STA (09:52)
--- NOTE | 2016-08-06 10:23 | PDOC ---
PROGRESS NOTES Subjective Subjective Pt on hemodialysis at time of exam. Patient currently intubated and off sedation receiving fentanyl IV. Pt tolerated HD catheter removal from thigh to lateral neck but has some continued oozing from the site. Objective Objective Vital Signs Date Time Temp Pulse Resp B/P Pulse Ox O2 Delivery O2 Flow Rate FiO2 08/06/16 09:23 100 Ventilator 08/06/16 06:00 94 20 155/73 08/06/16 04:00 97.8 97.8 08/04/16 03:55 50.0 Intake and Output 08/06/16 07:00 Intake Total 1962.25 ml Output Total 2245 ml Balance -282.75 ml IV Total 1834.25 ml Blood Product IV Normal Saline Flush 128 ml Output Urine Total 885 ml Other 1360 ml Physical Exam Heart: Normal S1, Normal S2, No murmurs, Other (Tachycardic in the 110s) Extremities: No clubbing, No cyanosis, Other (moderate peripheral edema) General: Other (off sedation but minimally awake) Lungs: Clear to auscultation (on vent), Other Neck: Other (mild JVD) Assessment Assessment 61 year old female with DIC, respiratory failure, JULIO C and septic shock due to recent UTI. She is currently off sedation but remains intubated and is tolerating hemodialysis. She is getting cyoprecipitate and blood products as needed. Her peripheral edema is likely non cardiac in origin as a ECHO from showed only mild diastolic dysfunction with normal systolic function and EF ~69%. Problems Medical Problems: (1) Abdominal pain Status: Acute (2) Enterocutaneous fistula Status: Acute (3) Sepsis Status: Acute (4) Urinary tract infection Status: Acute (5) UTI (urinary tract infection) Status: Acute Plan Plan of Care Agree with current plan of care, will continue to monitor closely. Comment Review of Relevant I have reviewed the following items lucila (where applicable) has been applied. Labs Laboratory Tests Test 08/04/16 11:03 08/04/16 17:49 08/05/16 00:00 08/05/16 05:30 Glucose (Fingerstick) 161mg/dL (70-99) 194mg/dL (70-99) 190mg/dL (70-99) White Blood Count 7.5x10^3/uL (4.0-11.0) Red Blood Count 3.02x10^6/uL (3.50-5.40) Hemoglobin 7.7g/dL (12.0-15.5) Hematocrit 23.8% (36.0-47.0) Mean Corpuscular Volume 79fL (79-100) Mean Corpuscular Hemoglobin 26pg (25-35) Mean Corpuscular Hemoglobin Concent 32g/dL (31-37) Red Cell Distribution Width 20.2% (11.5-14.5) Platelet Count 46x10^3/uL (140-400) Neutrophils (%) (Auto) 83% (31-73) Lymphocytes (%) (Auto) 10% (24-48) Monocytes (%) (Auto) 7% (0-9) Eosinophils (%) (Auto) 0% (0-3) Basophils (%) (Auto) 0% (0-3) Neutrophils # (Auto) 6.3x10^3uL (1.8-7.7) Lymphocytes # (Auto) 0.8x10^3/uL (1.0-4.8) Monocytes # (Auto) 0.5x10^3/uL (0.0-1.1) Eosinophils # (Auto) 0.0x10^3/uL (0.0-0.7) Basophils # (Auto) 0.0x10^3/uL (0.0-0.2) Prothrombin Time 36.0SEC (11.7-14.0) Prothromb Time International Ratio 3.9 (0.8-1.1) Fibrinogen < 60mg/dL (200-440) Sodium Level 143mmol/L (136-145) Potassium Level 3.5mmol/L (3.5-5.1) Chloride Level 108mmol/L (98-107) Carbon Dioxide Level 25mmol/L (21-32) Anion Gap 10 (6-14) Blood Urea Nitrogen 79mg/dL (7-20) Creatinine 1.8mg/dL (0.6-1.0) Estimated GFR (Cockcroft-Gault) 34.6 Glucose Level 210mg/dL (70-99) Lactic Acid Level 2.1mmol/L (0.4-2.0) Calcium Level 8.5mg/dL (8.5-10.1) Phosphorus Level 5.1mg/dL (2.6-4.7) Magnesium Level 3.1mg/dL (1.8-2.4) Test 08/05/16 05:32 08/05/16 08:00 08/05/16 13:15 08/05/16 13:17 Glucose (Fingerstick) 186mg/dL (70-99) 133mg/dL (70-99) O2 Saturation 99% (92-99) Arterial Blood pH 7.47 (7.35-7.45) Arterial Blood pCO2 at Patient Temp 32mmHg (35-46) Arterial Blood pO2 at Patient Temp 199mmHg (65-108) Arterial Blood HCO3 23mmol/L (21-28) Arterial Blood Base Excess -1mmol/L (-3-3) FiO2 40 Prothrombin Time 16.1SEC (11.7-14.0) Prothromb Time International Ratio 1.4 (0.8-1.1) Fibrinogen 102mg/dL (200-440) Test 08/05/16 23:50 08/06/16 05:23 08/06/16 05:25 08/06/16 08:00 Glucose (Fingerstick) 153mg/dL (70-99) 175mg/dL (70-99) White Blood Count 8.2x10^3/uL (4.0-11.0) Red Blood Count 3.24x10^6/uL (3.50-5.40) Hemoglobin 8.2g/dL (12.0-15.5) Hematocrit 25.1% (36.0-47.0) Mean Corpuscular Volume 78fL (79-100) Mean Corpuscular Hemoglobin 25pg (25-35) Mean Corpuscular Hemoglobin Concent 33g/dL (31-37) Red Cell Distribution Width 20.4% (11.5-14.5) Platelet Count 49x10^3/uL (140-400) Neutrophils (%) (Auto) 81% (31-73) Lymphocytes (%) (Auto) 12% (24-48) Monocytes (%) (Auto) 7% (0-9) Eosinophils (%) (Auto) 0% (0-3) Basophils (%) (Auto) 0% (0-3) Neutrophils # (Auto) 6.6x10^3uL (1.8-7.7) Lymphocytes # (Auto) 1.0x10^3/uL (1.0-4.8) Monocytes # (Auto) 0.6x10^3/uL (0.0-1.1) Eosinophils # (Auto) 0.0x10^3/uL (0.0-0.7) Basophils # (Auto) 0.0x10^3/uL (0.0-0.2) Fibrinogen 68mg/dL (200-440) Sodium Level 145mmol/L (136-145) Potassium Level 3.1mmol/L (3.5-5.1) Chloride Level 105mmol/L (98-107) Carbon Dioxide Level 27mmol/L (21-32) Anion Gap 13 (6-14) Blood Urea Nitrogen 72mg/dL (7-20) Creatinine 1.4mg/dL (0.6-1.0) Estimated GFR (Cockcroft-Gault) 46.3 Glucose Level 177mg/dL (70-99) Lactic Acid Level 2.0mmol/L (0.4-2.0) Calcium Level 8.9mg/dL (8.5-10.1) Phosphorus Level 4.8mg/dL (2.6-4.7) Magnesium Level 2.6mg/dL (1.8-2.4) O2 Saturation 99% (92-99) Arterial Blood pH 7.51 (7.35-7.45) Arterial Blood pCO2 at Patient Temp 30mmHg (35-46) Arterial Blood pO2 at Patient Temp 208mmHg (65-108) Arterial Blood HCO3 24mmol/L (21-28) Arterial Blood Base Excess 1mmol/L (-3-3) FiO2 40% Laboratory Tests Test 08/05/16 13:15 08/05/16 13:17 08/05/16 23:50 08/06/16 05:23 Prothrombin Time 16.1SEC (11.7-14.0) Prothromb Time International Ratio 1.4 (0.8-1.1) Fibrinogen 102mg/dL (200-440) Glucose (Fingerstick) 133mg/dL (70-99) 153mg/dL (70-99) 175mg/dL (70-99) Test 08/06/16 05:25 08/06/16 08:00 White Blood Count 8.2x10^3/uL (4.0-11.0) Red Blood Count 3.24x10^6/uL (3.50-5.40) Hemoglobin 8.2g/dL (12.0-15.5) Hematocrit 25.1% (36.0-47.0) Mean Corpuscular Volume 78fL (79-100) Mean Corpuscular Hemoglobin 25pg (25-35) Mean Corpuscular Hemoglobin Concent 33g/dL (31-37) Red Cell Distribution Width 20.4% (11.5-14.5) Platelet Count 49x10^3/uL (140-400) Neutrophils (%) (Auto) 81% (31-73) Lymphocytes (%) (Auto) 12% (24-48) Monocytes (%) (Auto) 7% (0-9) Eosinophils (%) (Auto) 0% (0-3) Basophils (%) (Auto) 0% (0-3) Neutrophils # (Auto) 6.6x10^3uL (1.8-7.7) Lymphocytes # (Auto) 1.0x10^3/uL (1.0-4.8) Monocytes # (Auto) 0.6x10^3/uL (0.0-1.1) Eosinophils # (Auto) 0.0x10^3/uL (0.0-0.7) Basophils # (Auto) 0.0x10^3/uL (0.0-0.2) Fibrinogen 68mg/dL (200-440) Sodium Level 145mmol/L (136-145) Potassium Level 3.1mmol/L (3.5-5.1) Chloride Level 105mmol/L (98-107) Carbon Dioxide Level 27mmol/L (21-32) Anion Gap 13 (6-14) Blood Urea Nitrogen 72mg/dL (7-20) Creatinine 1.4mg/dL (0.6-1.0) Estimated GFR (Cockcroft-Gault) 46.3 Glucose Level 177mg/dL (70-99) Lactic Acid Level 2.0mmol/L (0.4-2.0) Calcium Level 8.9mg/dL (8.5-10.1) Phosphorus Level 4.8mg/dL (2.6-4.7) Magnesium Level 2.6mg/dL (1.8-2.4) O2 Saturation 99% (92-99) Arterial Blood pH 7.51 (7.35-7.45) Arterial Blood pCO2 at Patient Temp 30mmHg (35-46) Arterial Blood pO2 at Patient Temp 208mmHg (65-108) Arterial Blood HCO3 24mmol/L (21-28) Arterial Blood Base Excess 1mmol/L (-3-3) FiO2 40% Microbiology 08/01/16 Blood Culture - Final, Complete NO GROWTH AFTER 5 DAYS 07/15/16 Urine Culture - Final, Complete 07/15/16 Urine Culture Result 1 (ROYA) - Final, Complete 07/15/16 Urine Culture Result 2 (ROYA) - Final, Complete 07/15/16 Antimicrobic Susceptibility - Final, Complete 07/29/16 Aerobic Culture - Final, Complete 07/29/16 Aerobic Culture Result 1 (ROYA) - Final, Complete Medications Current Medications Piperacillin Sod/ Tazobactam Sod/ Sodium Chloride (Zosyn/Iv Sodium Chloride 0.9 % 100ml) 100 ml @ 200 mls/hr 1X ONCE IV Last administered on 07/15/16 22:56; Start 07/15/16 at 22:00; Stop 07/15/16 at 22:29; Status DC Fentanyl Citrate 50 mcg 50 mcg PRN Q15MIN PRN IV PAIN GREATER THAN 3/10 Last administered on 07/16/16 00:30; Start 07/15/16 at 21:45; Stop 07/16/16 at 02:00; Status DC Sodium Chloride 1,000 ml @ 1,000 mls/hr 1X ONCE IV Last administered on 21:59; Start 07/15/16 at 22:00; Stop 07/15/16 at 22:59; Status DC Sodium Chloride (Iv Sodium Chloride 0.9% 500ml Bag) 500 ml @ 500 mls/hr 1X ONCE IV Last administered on 07/15/16 22:00; Start 07/15/16 at 22:00; Stop at 22:59; Status DC Ondansetron HCl (Zofran) 4 mg PRN Q8HRS PRN IV NAUSEA/VOMITING; Start 07/15/16 at 23:30; Stop 07/16/16 at 08:52; Status DC Fentanyl Citrate 50 mcg 50 mcg PRN Q2HR PRN IV SEVERE PAIN Last administered on 07/16/16 08:10; Start 07/15/16 at 23:30; Stop 07/16/16 at 08:52; Status DC Sodium Chloride (Iv Sodium Chloride 0.9% 1000ml Bag) 1,000 ml @ 150 mls/hr Q6H40M IV Last administered on 07/15/16 02:00; Start 07/15/16 at 23:45; Stop 07/16/16 at 08:52; Status DC Acetaminophen (Tylenol) 650 mg PRN Q4HRS PRN PO FEVER; Start 07/15/16 at 23:30; Stop 07/16/16 at 23:29; Status DC Info (Do NOT chart on this placeholder) 1 each PRN DAILY PRN MC NEEDS VERIFICATION; Start 07/16/16 at 03:00; Status Cancel Acetaminophen 650 mg 650 mg PRN Q4HRS PRN PO MILD PAIN / TEMP Last administered on 07/28/16 07:42; Start 07/16/16 at 08:45; Stop 07/29/16 at 08:33 ; Status DC Piperacillin Sod/ Tazobactam Sod 3.375 gm/Sodium Chloride 50 ml @ 100 mls/hr Q6HRS IV Last administered on 07/18/16 05:50; Start 07/16/16 at 10:00; Stop 07/18 at 13:28; Status DC Linezolid (Zyvox Premix) 300 ml @ 300 mls/hr Q12HR IV Last administered on 07/18 08:34; Start 07/16/16 at 10:00; Stop 07/18/16 at 13:28; Status DC Hydromorphone HCl (Dilaudid) 2 mg PRN Q4HRS PRN IV MODERATE PAIN Last administered on 07/28/16 23:33; Start 07/16/16 at 08:45 Hydromorphone HCl (Dilaudid) 4 mg PRN Q4HRS PRN IV SEVERE PAIN Last administered on 07/30/16 09:23; Start 07/16/16 at 08:45; Stop 07/31/16 at 15:01 ; Status DC Pantoprazole Sodium (Protonix) 40 mg DAILYAC PO Last administered on 07/27/16 11:11; Start 07/16/16 at 09:30; Stop 07/29/16 at 08:44; Status DC Hyoscyamine (Anaspaz) 0.125 mg Q6HRS PO Last administered on 07/20/16 05:20; Start 07/16/16 at 12:00; Stop 07/20/16 at 08:58; Status DC Phenazopyridine HCl (Pyridium) 200 mg TID PO Last administered on 07/20/16 08: 25; Start 07/16/16 at 09:30; Stop 07/20/16 at 08:58; Status DC Lorazepam (Ativan) 0.5 mg PRN BID PRN PO ANXIETY / AGITATION Last administered on 07/29/16 02:16; Start 07/16/16 at 08:45; Stop 07/31/16 at 15:01; Status DC Simethicone (Gas-X) 80 mg PRN Q4HRS PRN PO GAS / BLOATING Last administered on 07/24/16 22:30; Start 07/16/16 at 08:45; Stop 07/31/16 at 15:01; Status DC Zolpidem Tartrate 5 mg 5 mg PRN QHS PRN PO INSOMNIA Last administered on 23:14; Start 07/16/16 at 08:45; Stop 07/31/16 at 15:01; Status DC Potassium Chloride/Dextrose/ Sod Cl 1,000 ml @ 80 mls/hr [id number] IV Last administered on 07/16/16 10:54; Start 07/16/16 at 09:30; Stop 07/16/16 at 21:59; Status DC Fluconazole/ Sodium Chloride (Diflucan 200mg/ 100ml Premix) 100 ml @ 100 mls/ hr Q24H IV Last administered on 07/18/16 11:43; Start 07/16/16 at 11:00; Stop at 13:28; Status DC Info 1 each 1 each PRN DAILY PRN MC SEE COMMENTS Last administered on 12:41; Start 07/16/16 at 10:00; Stop 08/01/16 at 11:24; Status DC Sodium Chloride 220 meq/Sodium Acetate 90 meq/ Potassium Chloride 50 meq/ Potassium Acetate 15 meq/Potassium Phosphate 10 mmol/ Magnesium Sulfate 50 meq/ Calcium Gluconate 6 meq/ Multivitamins/ Minerals 10 ml/ Chromium/Copper/ Manganese/Seleni/ Zn 1 ml/Total Parenteral Nutrition/Amino Acids/Dextro... 1, 920 ml @ 80 mls/hr TPN CONT IV ; Start 07/16/16 at 22:00; Stop 07/16/16 at 22:00 ; Status DC Sodium Chloride/ Sodium Acetate/ Potassium Chloride/ Potassium Acetate/ Potassium Phosphate/ Magnesium Sulfate/ Calcium Gluconate/ Multivitamins/ Minerals/Chromium/ Copper/Manganese/ Seleni/Zn/Total Parenteral Nutrition/Amino Acids/Dextrose/ Fat Emulsion Intravenous (Sodium Chlori... 1,820 ml @ 75.833 mls/ hr TPN CONT IV Last administered on 07/16/16 21:03; Start 07/16/16 at 22: 00; Stop 07/17/16 at 21:59; Status DC Ondansetron HCl (Zofran) 4 mg PRN Q6HRS PRN IV NAUSEA/VOMITING Last administered on 07/21/16 08:48; Start 07/16/16 at 17:15; Stop 07/31/16 at 15:01; Status DC Diphenhydramine HCl (Benadryl) 25 mg PRN Q6HRS PRN PO ITCHING Last administered on 07/25/16 23:38; Start 07/16/16 at 17:45; Stop 07/31/16 at 15:01 ; Status DC Lidocaine (Xylocaine) 1 sang BID TP Last administered on 08/05/16 20:57; Start 07/17/16 at 09:00 Zinc Oxide 1 sang 1 sang BID TP Last administered on 08/05/16 20:57; Start at 09:30 Sodium Chloride/ Sodium Acetate/ Potassium Chloride/ Potassium Acetate/ Potassium Phosphate/ Magnesium Sulfate/ Calcium Gluconate/ Multivitamins/ Minerals/Chromium/ Copper/Manganese/ Seleni/Zn/Total Parenteral Nutrition/Amino Acids/Dextrose/ Fat Emulsion Intravenous (Sodium Chlori... 1,920 ml @ 80 mls/ hr TPN CONT IV Last administered on 07/17/16 22:13; Start 07/17/16 at 22:00; Stop 07/18/16 at 21:59; Status DC Furosemide 40 mg 40 mg 1X ONCE IVP Last administered on 07/18/16 11:43; Start 07/18/16 at 11:00; Stop 07/18/16 at 11:07; Status DC Sodium Chloride 220 meq/Sodium Acetate 90 meq/ Potassium Chloride 50 meq/ Potassium Acetate 15 meq/Potassium Phosphate 10 mmol/ Magnesium Sulfate 50 meq/ Calcium Gluconate 3 meq/ Multivitamins/ Minerals 10 ml/ Chromium/Copper/ Manganese/Seleni/ Zn 1 ml/Total Parenteral Nutrition/Amino Acids/Dextro... 1, 920 ml @ 80 mls/hr TPN CONT IV Last administered on 07/19/16 00:03; Start 07/18/16 at 22:00; Stop 07/19/16 at 21:59; Status DC Meropenem 1 gm/ Sodium Chloride 100 ml @ 200 mls/hr Q8HRS IV Last administered on 07/20/16 05:21; Start 07/18/16 at 14:00; Stop 07/20/16 at 11:25; Status DC Micafungin Sodium 100 mg/Dextrose 100 ml @ 100 mls/hr Q24H IV Last administered on 07/19/16 15:05; Start 07/18/16 at 14:00; Stop 07/20/16 at 11:25; Status DC Daptomycin/Sodium Chloride (Cubicin/Iv Sodium Chloride 0.9% 50ml) 50 ml @ 100 mls/hr Q24H IV Last administered on 07/19/16 16:56; Start 07/18/16 at 15:00; Stop 07/20/16 at 11:25; Status DC Alteplase, Recombinant (Cathflo) 2 mg 1X ONCE INT CAT Last administered on 07/19 06:24; Start 07/19/16 at 07:00; Stop 07/19/16 at 07:01; Status DC Gentamicin Sulfate 1 each 1 each PRN DAILY PRN MC SEE COMMENTS Last administered on 07/25/16 15:31; Start 07/19/16 at 12:15; Stop 07/25/16 at 16:14 ; Status DC Gentamicin Sulfate/Sodium Chloride (Iv Sodium Chloride 0.9% 100ml) 106.75 ml @ 106.75 mls/hr Q24H IV Last administered on 07/25/16 15:31; Start 07/19/16 at 13 :00; Stop 07/25/16 at 16:12; Status DC Gentamicin Sulfate 1 each 1 each 1X ONCE MC Last administered on 07/19/16 23: 00; Start 07/19/16 at 23:00; Stop 07/19/16 at 23:01; Status DC Sodium Chloride/ Sodium Acetate/ Potassium Chloride/ Potassium Acetate/ Potassium Phosphate/ Magnesium Sulfate/ Calcium Gluconate/ Multivitamins/ Minerals/Chromium/ Copper/Manganese/ Seleni/Zn/Total Parenteral Nutrition/Amino Acids/Dextrose/ Fat Emulsion Intravenous (Sodium Chlori... 1,920 ml @ 80 mls/ hr TPN CONT IV Last administered on 07/19/16 20:51; Start 07/19/16 at 22:00; Stop 07/20/16 at 21:59; Status DC Hyoscyamine (Anaspaz) 0.125 mg PRN Q6HRS PRN PO BLADDER SPASM; Start 07/20/16 at 09:00; Stop 07/31/16 at 15:01; Status DC Phenazopyridine HCl 200 mg 200 mg PRN TID PRN PO BLADDER SPASM Last administered on 07/21/16 20:14; Start 07/20/16 at 09:00; Stop 07/31/16 at 15:01; Status DC Linezolid 300 ml @ 300 mls/hr Q12HR IV Last administered on 07/25/16 09:02; Start 07/20/16 at 12:00; Stop 07/25/16 at 16:12; Status DC Sodium Chloride 220 meq/Sodium Acetate 90 meq/ Potassium Chloride 50 meq/ Potassium Acetate 15 meq/Potassium Phosphate 10 mmol/ Magnesium Sulfate 50 meq/ Calcium Gluconate 3 meq/ Multivitamins/ Minerals 10 ml/ Chromium/Copper/ Manganese/Seleni/ Zn 1 ml/Total Parenteral Nutrition/Amino Acids/Dextro... 1, 920 ml @ 80 mls/hr TPN CONT IV Last administered on 07/20/16 21:30; Start 07/20/16 at 22:00; Stop 07/21/16 at 21:59; Status DC Sodium Chloride/ Sodium Acetate/ Potassium Chloride/ Potassium Acetate/ Potassium Phosphate/ Magnesium Sulfate/ Multivitamins/ Minerals/Chromium/ Copper /Manganese/ Seleni/Zn/Total Parenteral Nutrition/Amino Acids/Dextrose/ Fat Emulsion Intravenous (Sodium Chloride/ Potass... 1,920 ml @ 80 mls/hr TPN CONT IV Last administered on 07/21/16 22:05; Start 07/21/16 at 22:00; Stop at 21:59; Status DC Alteplase, Recombinant 2 mg 2 mg PRN DAILY PRN INT CAT INFLAMMATION Last administered on 07/27/16 11:31; Start 07/21/16 at 15:00 Sodium Chloride 220 meq/Sodium Acetate 90 meq/ Potassium Chloride 50 meq/ Potassium Acetate 15 meq/Potassium Phosphate 10 mmol/ Magnesium Sulfate 50 meq/ Multivitamins/ Minerals 10 ml/ Chromium/Copper/ Manganese/Seleni/ Zn 1 ml/Total Parenteral Nutrition/Amino Acids/Dextrose/ Fat Emuls... 1,920 ml @ 80 mls/hr TPN CONT IV Last administered on 07/22/16 20:53; Start 07/22/16 at 22:00; Stop 07/23/16 at 21:59; Status DC Sodium Chloride/ Sodium Acetate/ Potassium Chloride/ Potassium Acetate/ Potassium Phosphate/ Magnesium Sulfate/ Multivitamins/ Minerals/Chromium/ Copper /Manganese/ Seleni/Zn/Total Parenteral Nutrition/Amino Acids/Dextrose/ Fat Emulsion Intravenous (Sodium Chloride/ Potass... 1,920 ml @ 80 mls/hr TPN CONT IV Last administered on 07/23/16 21:16; Start 07/23/16 at 22:00; Stop 07/24 at 21:59; Status DC Gentamicin Sulfate 1 each 1 each 1X ONCE MC ; Start 07/23/16 at 22:00; Stop 07/23 at 22:01; Status Cancel Sodium Chloride/ Sodium Acetate/ Potassium Chloride/ Potassium Acetate/ Potassium Phosphate/ Magnesium Sulfate/ Multivitamins/ Minerals/Chromium/ Copper /Manganese/ Seleni/Zn/Total Parenteral Nutrition/Amino Acids/Dextrose/ Fat Emulsion Intravenous (Sodium Chloride/ Potass... 1,920 ml @ 80 mls/hr TPN CONT IV Last administered on 07/24/16 21:15; Start 07/24/16 at 22:00; Stop 04/30 at 21:59; Status DC Gentamicin Sulfate 1 each 1X ONCE MC ; Start 07/25/16 at 12:30; Stop 07/25/16 at 12:31; Status Cancel Amlodipine Besylate 5 mg 5 mg DAILY PO Last administered on 07/27/16 11:12; Start 07/25/16 at 12:00; Stop 07/29/16 at 08:44; Status DC Sodium Chloride 220 meq/Sodium Acetate 90 meq/ Potassium Chloride 30 meq/ Potassium Acetate 15 meq/Potassium Phosphate 10 mmol/ Magnesium Sulfate 50 meq/ Multivitamins/ Minerals 10 ml/ Chromium/Copper/ Manganese/Seleni/ Zn 1 ml/Total Parenteral Nutrition/Amino Acids/Dextrose/ Fat Emuls... 1,920 ml @ 80 mls/hr TPN CONT IV Last administered on 07/25/16 22:25; Start 07/25/16 at 22:00; Stop 07/26/16 at 21:59; Status DC Sodium Chloride/ Sodium Acetate/ Potassium Chloride/ Potassium Acetate/ Potassium Phosphate/ Magnesium Sulfate/ Multivitamins/ Minerals/Chromium/ Copper /Manganese/ Seleni/Zn/Total Parenteral Nutrition/Amino Acids/Dextrose/ Fat Emulsion Intravenous (Sodium Chloride/ Potass... 1,920 ml @ 80 mls/hr TPN CONT IV Last administered on 07/26/16 23:16; Start 07/26/16 at 22:00; Stop at 21:59; Status DC Furosemide 20 mg 20 mg 1X ONCE IVP Last administered on 07/27/16 11:31; Start 07/27/16 at 09:00; Stop 07/27/16 at 09:01; Status DC Daptomycin 340 mg/ Sodium Chloride 50 ml @ 100 mls/hr Q24H IV Last administered on 07/29/16 15:05; Start 07/27/16 at 13:00; Stop 07/30/16 at 07:25 ; Status DC Piperacillin Sod/ Tazobactam Sod 3.375 gm/Sodium Chloride 50 ml @ 100 mls/hr Q6HRS IV Last administered on 07/30/16 05:30; Start 07/27/16 at 12:30; Stop at 07:25; Status DC Fluconazole/ Sodium Chloride 100 ml @ 100 mls/hr Q24H IV Last administered on 07/28/16 13:32; Start 07/27/16 at 13:00; Stop 07/29/16 at 00:53; Status DC Sodium Chloride 1,000 ml @ 1,000 mls/hr 1X ONCE IV Last administered on 12:34; Start 07/27/16 at 12:30; Stop 07/27/16 at 13:29; Status DC Sodium Chloride 220 meq/Sodium Acetate 90 meq/ Potassium Chloride 30 meq/ Potassium Acetate 15 meq/Potassium Phosphate 10 mmol/ Magnesium Sulfate 45 meq/ Multivitamins/ Minerals 10 ml/ Chromium/Copper/ Manganese/Seleni/ Zn 1 ml/Total Parenteral Nutrition/Amino Acids/Dextrose/ Fat Emuls... 1,920 ml @ 80 mls/hr TPN CONT IV Last administered on 07/27/16 22:38; Start 07/27/16 at 22:00; Stop 07/28/16 at 21:59; Status DC Sodium Chloride (Iv Sodium Chloride 0.9% 1000ml Bag) 1,000 ml @ 45 mls/hr [id number] IV Last administered on 07/28/16 03:24; Start 07/27/16 at 17:00; Stop 07/28/16 at 10:27; Status DC Acetaminophen 650 mg 650 mg PRN Q6HRS PRN SC fever Last administered on 03:57; Start 07/27/16 at 16:30; Stop 07/29/16 at 08:33; Status DC Sodium Chloride 1,000 ml @ 427.5 mls/ hr Q2H21M IV Last administered on 19:30; Start 07/27/16 at 19:30; Stop 07/27/16 at 23:30; Status DC Sodium Chloride 220 meq/Sodium Acetate 90 meq/ Potassium Chloride 30 meq/ Potassium Acetate 15 meq/Potassium Phosphate 10 mmol/ Magnesium Sulfate 45 meq/ Multivitamins/ Minerals 10 ml/ Chromium/Copper/ Manganese/Seleni/ Zn 1 ml/Total Parenteral Nutrition/Amino Acids/Dextrose/ Fat Emuls... 1,920 ml @ 80 mls/hr TPN CONT IV Last administered on 07/28/16 21:43; Start 07/28/16 at 22:00; Stop 07/29/16 at 21:59; Status DC Micafungin Sodium/ Dextrose (Mycamine) 100 ml @ 100 mls/hr Q24H IV Last administered on 08/06/16 00:30; Start 07/29/16 at 01:00 Lorazepam (Ativan) 0.05 mg PRN Q4HRS PRN IV ANXIETY / AGITATION; Start at 02:30; Stop 07/29/16 at 02:48; Status DC Lorazepam (Ativan) 0.5 mg PRN Q4HRS PRN IV ANXIETY / AGITATION Last administered on 07/29/16 03:18; Start 07/29/16 at 03:00 Acetaminophen (Tylenol) 650 mg PRN Q4HRS PRN SC MILD PAIN / TEMP; Start at 08:30 Ketorolac Tromethamine (Toradol) 30 mg PRN Q6HRS PRN IV PAIN/FEVER Last administered on 07/30/16 00:50; Start 07/29/16 at 08:30; Stop 07/30/16 at 13:01 ; Status DC Pantoprazole Sodium 40 mg 40 mg DAILYAC IVP Last administered on 08/05/16 14: 26; Start 07/29/16 at 09:00 Sodium Chloride 1,000 ml @ 45 mls/hr [id number] IV Last administered on 09:17; Start 07/29/16 at 08:45; Stop 07/31/16 at 15:01; Status DC Sodium Chloride/ Sodium Acetate/ Potassium Chloride/ Potassium Acetate/ Potassium Phosphate/ Magnesium Sulfate/ Multivitamins/ Minerals/Chromium/ Copper /Manganese/ Seleni/Zn/Total Parenteral Nutrition/Amino Acids/Dextrose/ Fat Emulsion Intravenous (Sodium Chloride/ Potass... 1,920 ml @ 80 mls/hr TPN CONT IV Last administered on 07/29/16 22:06; Start 07/29/16 at 22:00; Stop at 21:59; Status DC Lidocaine/Sodium Bicarbonate 20 ml 20 ml STK-MED ONCE IJ ; Start 07/29/16 at 13: 13; Stop 07/29/16 at 13:14; Status DC Heparin Sodium/ Sodium Chloride 500 ml @ As Directed STK-MED ONCE .ROUTE ; Start 07/29/16 at 13:13; Stop 07/29/16 at 13:14; Status DC Lidocaine/ Epinephrine (Xylocaine 1%-Epi 1:100,000) 20 ml STK-MED ONCE .ROUTE ; Start 07/29/16 at 13:22; Stop 07/29/16 at 13:23; Status DC Midazolam HCl (Versed) 5 mg STK-MED ONCE .ROUTE ; Start 07/29/16 at 13:32; Stop 07/29/16 at 13:33; Status DC Fentanyl Citrate (Fentanyl 5ml Vial) 250 mcg STK-MED ONCE .ROUTE ; Start at 13:32; Stop 07/29/16 at 13:33; Status DC Heparin Sodium/ Sodium Chloride 1,000 unit 1X ONCE IART Last administered on 13:45; Start 07/29/16 at 13:45; Stop 07/29/16 at 13:48; Status DC Midazolam HCl (Versed) 5 mg 1X ONCE IV Last administered on 07/29/16 13:45; Start 07/29/16 at 13:45; Stop 07/29/16 at 13:48; Status DC Fentanyl Citrate (Fentanyl 5ml Vial) 250 mcg 1X ONCE IV Last administered on 13:45; Start 07/29/16 at 13:45; Stop 07/29/16 at 13:48; Status DC Lidocaine/ Epinephrine 20 ml 20 ml 1X ONCE IJ Last administered on 07/29/16 13:45; Start 07/29/16 at 13:45; Stop 07/29/16 at 13:48; Status DC Sodium Chloride 220 meq/Sodium Acetate 90 meq/ Potassium Chloride 15 meq/ Potassium Acetate 30 meq/Potassium Phosphate 10 mmol/ Magnesium Sulfate 45 meq/ Multivitamins/ Minerals 10 ml/ Chromium/Copper/ Manganese/Seleni/ Zn 1 ml/Total Parenteral Nutrition/Amino Acids/Dextrose/ Fat Emuls... 1,920 ml @ 80 mls/hr TPN CONT IV ; Start 07/30/16 at 22:00; Stop 07/31/16 at 21:59; Status DC Norepinephrine Bitartrate 8 mg/ Sodium Chloride 258 ml @ 1.93 mls/hr 1X ONCE IV Last administered on 07/30/16 11:17; Start 07/30/16 at 11:15; Stop at 15:43; Status DC Norepinephrine Bitartrate/Sodium Chloride (Levophed Vial/ Iv Sodium Chloride 0.9 % 250ml) 258 ml @ 0 mls/hr CONT PRN IV SEE I/O RECORD Last administered on 08/02 19:54; Start 07/30/16 at 11:15; Stop 08/04/16 at 09:29; Status DC Furosemide 60 mg 60 mg 1X ONCE IVP Last administered on 07/30/16 11:14; Start 07/30/16 at 11:15; Stop 07/30/16 at 11:16; Status DC Sodium Chloride 500 ml @ 500 mls/hr Q1H IV Last administered on 07/30/16 17: 04; Start 07/30/16 at 14:30; Stop 07/30/16 at 15:29; Status DC Albumin Human 100 ml @ 100 mls/hr Q8HRS IV Last administered on 07/31/16 05: 37; Start 07/30/16 at 14:30; Stop 07/31/16 at 06:59; Status DC Furosemide/Sodium Chloride (Lasix Drip/Iv Sodium Chloride 0.9% 100ml) 100 ml @ 0 mls/hr CONT PRN IV SEE I/O RECORD Last administered on 07/31/16 03:17; Start 07/30/16 at 14:30; Stop 08/01/16 at 13:19; Status DC Ondansetron HCl (Zofran) 8 mg PRN Q8HRS PRN IV NAUSEA/VOMITING Last administered on 07/30/16 14:38; Start 07/30/16 at 14:30 Sodium Bicarbonate 50 meq 50 meq 1X ONCE IV Last administered on 07/30/16 14: 43; Start 07/30/16 at 14:30; Stop 07/30/16 at 14:31; Status DC Heparin Sodium/ Sodium Chloride 500 ml @ As Directed STK-MED ONCE .ROUTE ; Start 07/30/16 at 14:49; Stop 07/30/16 at 14:50; Status DC Lidocaine HCl 20 ml STK-MED ONCE .ROUTE ; Start 07/30/16 at 14:49; Stop at 14:50; Status DC Midazolam HCl (Versed) 2 mg STK-MED ONCE .ROUTE ; Start 07/30/16 at 15:19; Stop 07/30/16 at 15:20; Status DC Heparin Sodium/ Sodium Chloride 1,000 unit 1X ONCE IART Last administered on 15:44; Start 07/30/16 at 15:45; Stop 07/30/16 at 15:46; Status DC Midazolam HCl (Versed) 1.5 mg 1X ONCE IV Last administered on 07/30/16 15:44 ; Start 07/30/16 at 15:45; Stop 07/30/16 at 15:46; Status DC Lidocaine HCl 20 ml 1X ONCE IJ Last administered on 07/30/16 15:44; Start at 15:45; Stop 07/30/16 at 15:46; Status DC Heparin Sodium (Porcine) 67302 unit 10,000 unit STK-MED ONCE .ROUTE ; Start at 15:54; Stop 07/30/16 at 15:55; Status DC Fentanyl Citrate 30 ml @ 0 mls/hr CONT PRN PRN IV PROTOCOL Last administered on 08/06/16 03:50; Start 07/30/16 at 16:45 Sodium Bicarbonate/ Dextrose 1,150 ml @ 125 mls/hr 1X ONCE IV Last administered on 07/30/16 18:34; Start 07/30/16 at 17:30; Stop 07/31/16 at 02:41 ; Status DC Succinylcholine Chloride 200 mg 200 mg STK-MED ONCE .ROUTE ; Start 07/30/16 at 19:47; Stop 07/30/16 at 19:48; Status DC Propofol 100 ml @ As Directed STK-MED ONCE IV ; Start 07/30/16 at 19:48; Stop 07/30/16 at 19:49; Status DC Midazolam HCl (Versed 100mg/ 100ml Premix) 100 ml @ 0 mls/hr CONT PRN IV SEE I/ O RECORD Last administered on 08/03/16 12:18; Start 07/30/16 at 21:15 Sodium Bicarbonate 50 meq 50 meq 1X ONCE IV Last administered on 07/30/16 22: 15; Start 07/30/16 at 22:30; Stop 07/30/16 at 22:31; Status DC Dopamine HCl/ Dextrose 250 ml @ 11.513 mls/ hr CONT PRN IV SEE I/O RECORD Last administered on 07/31/16 20:16; Start 07/30/16 at 22:15; Stop 08/04/16 at 09:29; Status DC Sodium Bicarbonate/ Dextrose 1,150 ml @ 125 mls/hr Q9H12M IV Last administered on 08/01/16 09:30; Start 07/31/16 at 03:00; Stop 08/01/16 at 13:19 ; Status DC Propofol (Diprivan) 1,000 mg STK-MED ONCE IV ; Start 07/30/16 at 20:00; Stop at 08:16; Status DC Succinylcholine Chloride 200 mg 200 mg STK-MED ONCE .ROUTE ; Start 07/30/16 at 20:00; Stop 07/31/16 at 08:16; Status DC Tigecycline 50 mg/ Sodium Chloride 50 ml @ 100 mls/hr Q12HR IV Last administered on 08/04/16 09:01; Start 07/31/16 at 21:00; Stop 08/04/16 at 10:00 ; Status DC Tigecycline/ Sodium Chloride (Tygacil/Iv Sodium Chloride 0.9% 100ml) 100 ml @ 200 mls/hr 1X ONCE IV Last administered on 07/31/16 09:22; Start 07/31/16 at 09:00; Stop 07/31/16 at 09:29; Status DC Darbepoetin Sarbjit 60 mcg 60 mcg [id number] SQ Last administered on 07/31/16 21:09 ; Start 07/31/16 at 21:00 Albumin Human 100 ml @ 100 mls/hr 1X ONCE IV Last administered on 07/31/16 11:40; Start 07/31/16 at 11:15; Stop 07/31/16 at 12:14; Status DC Albumin Human 100 ml @ 100 mls/hr 1X ONCE IV Last administered on 07/31/16 12:03; Start 07/31/16 at 11:15; Stop 07/31/16 at 12:14; Status DC Sodium Chloride (Iv Sodium Chloride 0.9% 1000ml Bag) 1,000 ml @ 1,000 mls/hr Q1H PRN IV hypotension; Start 07/31/16 at 11:33; Stop 07/31/16 at 17:32; Status DC Info (PHARMACY MONITORING -- do not chart) 1 each PRN DAILY PRN MC SEE COMMENTS ; Start 07/31/16 at 11:45 Info (PHARMACY MONITORING -- do not chart) 1 each PRN DAILY PRN MC SEE COMMENTS ; Start 07/31/16 at 11:45; Status UNV Hydrocortisone Sodium Succinate (Solu-Cortef) 100 mg Q8HRS IV Last administered on 08/04/16 06:16; Start 08/01/16 at 07:00; Stop 08/04/16 at 09:29 ; Status DC Albuterol/ Ipratropium (Duoneb) 3 ml RTQID NEB Last administered on 08/06/16 07:32; Start 08/01/16 at 08:00 Albuterol/ Ipratropium 3 ml 3 ml STK-MED ONCE .ROUTE Last administered on 07:34; Start 08/01/16 at 06:59; Stop 08/01/16 at 07:00; Status DC Sodium Chloride 1,000 ml @ 1,000 mls/hr Q1H PRN IV hypotension; Start 08/01/16 at 06:57; Stop 08/01/16 at 12:56; Status DC Albumin Human (Albuminar) 200 ml @ 200 mls/hr 1X PRN PRN IV Hypotension; Start 08/01/16 at 07:00; Stop 08/01/16 at 12:59; Status DC Info (PHARMACY MONITORING -- do not chart) 1 each PRN DAILY PRN MC SEE COMMENTS ; Start 08/01/16 at 07:00; Status UNV Info 1 each 1 each PRN DAILY PRN MC SEE COMMENTS Last administered on 14:21; Start 08/01/16 at 13:30 Sodium Chloride 220 meq/Sodium Acetate 90 meq/ Potassium Chloride 15 meq/ Potassium Acetate 30 meq/Potassium Phosphate 10 mmol/ Magnesium Sulfate 45 meq/ Multivitamins/ Minerals 10 ml/ Chromium/Copper/ Manganese/Seleni/ Zn 1 ml/Total Parenteral Nutrition/Amino Acids/Dextrose/ Fat Emuls... 1,920 ml @ 80 mls/hr TPN CONT IV Last administered on 08/01/16 21:56; Start 08/01/16 at 22:00; Stop 08/02/16 at 21:59; Status DC Potassium Chloride (KCl Premix 20meq) 50 ml @ 50 mls/hr Q1H IV Last administered on 08/01/16 19:05; Start 08/01/16 at 17:00; Stop 08/01/16 at 18:59 ; Status DC Insulin Aspart 0-6 UNITS TIDWMEALS SQ Last administered on 08/02/16 11:33; Start 08/02/16 at 12:00; Stop 08/02/16 at 14:34; Status DC Sodium Chloride 220 meq/Sodium Acetate 90 meq/ Potassium Chloride 15 meq/ Potassium Acetate 30 meq/Magnesium Sulfate 45 meq/ Multivitamins/ Minerals 10 ml / Chromium/Copper/ Manganese/Seleni/ Zn 1 ml/Total Parenteral Nutrition/Amino Acids/Dextrose/ Fat Emulsion Intravenous 1,920 ml @ 80 mls/hr TPN CONT IV Last administered on 08/02/16 21:34; Start 08/02/16 at 22:00; Stop 08/03/16 at 21:59; Status DC Levofloxacin/ Dextrose 150 ml @ 100 mls/hr 1X ONCE IV Last administered on 14:35; Start 08/02/16 at 14:00; Stop 08/02/16 at 15:29; Status DC Daptomycin/Sodium Chloride (Cubicin/Iv Sodium Chloride 0.9% 50ml) 50 ml @ 100 mls/hr ONCE ONCE IV Last administered on 08/02/16 14:34; Start 08/02/16 at 15 :00; Stop 08/02/16 at 15:29; Status DC Insulin Aspart 0-6 UNITS Q6HRS SQ Last administered on 08/06/16 05:44; Start 08/02/16 at 18:00 Sodium Chloride (Iv Sodium Chloride 0.9% 1000ml Bag) 1,000 ml @ 1,000 mls/hr Q1H PRN IV hypotension; Start 08/03/16 at 07:26; Stop 08/03/16 at 13:25; Status DC Diphenhydramine HCl (Benadryl) 25 mg 1X PRN PRN IV ITCHING; Start 08/03/16 at 07:30; Stop 08/04/16 at 07:29; Status DC Diphenhydramine HCl (Benadryl) 25 mg 1X PRN PRN IV ITCHING; Start 08/03/16 at 07:30; Stop 08/04/16 at 07:29; Status DC Sodium Chloride (Normal Saline Flush) 10 ml 1X PRN PRN IV AP catheter pack; Start 08/03/16 at 07:30; Stop 08/04/16 at 07:29; Status DC Sodium Chloride 10 ml 10 ml 1X PRN PRN IV QUARTER LINING SMOOTHER catheter pack; Start 08/03/16 at 07:30; Stop 08/04/16 at 07:29; Status DC Sodium Chloride (Iv Sodium Chloride 0.9% 1000ml Bag) 1,000 ml @ 400 mls/hr Q2H30M PRN IV PATENCY; Start 08/03/16 at 07:26; Stop 08/03/16 at 19:25; Status DC Info 1 each 1 each PRN DAILY PRN MC SEE COMMENTS; Start 08/03/16 at 07:30; Status UNV Albumin Human 200 ml @ 200 mls/hr Q2HR IV Last administered on 08/03/16 10:00 ; Start 08/03/16 at 08:44; Stop 08/03/16 at 10:59; Status DC Sodium Chloride 160 meq/Sodium Acetate 60 meq/ Potassium Chloride 15 meq/ Potassium Acetate 30 meq/Magnesium Sulfate 25 meq/ Multivitamins/ Minerals 10 ml / Chromium/Copper/ Manganese/Seleni/ Zn 1 ml/Total Parenteral Nutrition/Amino Acids/Dextrose/ Fat Emulsion Intravenous 1,500 ml @ 62.5 mls/hr TPN CONT IV Last administered on 08/03/16 22:52; Start 08/03/16 at 22:00; Stop 08/04/16 at 21:59; Status DC Levofloxacin/ Dextrose 100 ml @ 100 mls/hr 1X ONCE IV Last administered on 10:50; Start 08/04/16 at 07:30; Stop 08/04/16 at 08:30; Status DC Daptomycin 450 mg/ Sodium Chloride 50 ml @ 100 mls/hr ONCE ONCE IV Last administered on 08/04/16 09:55; Start 08/04/16 at 08:00; Stop 08/04/16 at 08:30 ; Status DC Tigecycline/ Sodium Chloride (Tygacil/Iv Sodium Chloride 0.9% 50ml) 50 ml @ 100 mls/hr Q12HR IV Last administered on 08/05/16 20:54; Start 08/04/16 at 21: 00 Hydrocortisone Sodium Succinate 50 mg 50 mg Q8HRS IV Last administered on 05:39; Start 08/04/16 at 14:00; Stop 08/05/16 at 11:12; Status DC Furosemide 100 mg/ Sodium Chloride 100 ml @ 0 mls/hr CONT PRN IV SEE I/O RECORD Last administered on 08/05/16 18:56; Start 08/04/16 at 11:30 Sodium Chloride 160 meq/Sodium Acetate 60 meq/ Potassium Chloride 15 meq/ Potassium Acetate 30 meq/Magnesium Sulfate 25 meq/ Multivitamins/ Minerals 10 ml / Chromium/Copper/ Manganese/Seleni/ Zn 1 ml/Total Parenteral Nutrition/Amino Acids/Dextrose/ Fat Emulsion Intravenous 1,500 ml @ 62.5 mls/hr TPN CONT IV Last administered on 08/04/16 21:45; Start 08/04/16 at 22:00; Stop 08/06/16 at 08:48; Status DC Sodium Chloride 1,000 ml @ 1,000 mls/hr Q1H PRN IV hypotension; Start 08/04/16 at 12:00; Stop 08/04/16 at 17:59; Status DC Sodium Chloride (Iv Sodium Chloride 0.9% 1000ml Bag) 1,000 ml @ 400 mls/hr Q2H30M PRN IV PATENCY; Start 08/04/16 at 12:00; Stop 08/04/16 at 23:59; Status DC Info 1 each 1 each PRN DAILY PRN MC SEE COMMENTS; Start 08/04/16 at 16:30; Status UNV Levofloxacin/ Dextrose 100 ml @ 100 mls/hr 1X ONCE IV Last administered on 14:27; Start 08/05/16 at 14:00; Stop 08/05/16 at 14:59; Status DC Daptomycin/Sodium Chloride (Cubicin/Iv Sodium Chloride 0.9% 50ml) 50 ml @ 100 mls/hr 1X ONCE IV Last administered on 08/05/16 14:27; Start 08/05/16 at 14: 00; Stop 08/05/16 at 14:29; Status DC Heparin Sodium (Porcine) 10,000 unit STK-MED ONCE .ROUTE ; Start 08/05/16 at 09: 35; Stop 08/05/16 at 09:36; Status DC Lidocaine/Sodium Bicarbonate 20 ml 20 ml STK-MED ONCE IJ ; Start 08/05/16 at 09: 36; Stop 08/05/16 at 09:37; Status DC Heparin Sodium/ Sodium Chloride 500 ml @ As Directed STK-MED ONCE .ROUTE ; Start 08/05/16 at 09:36; Stop 08/05/16 at 09:37; Status DC Lidocaine/Sodium Bicarbonate (Buffered Lidocaine 1%) 2 ml 1X ONCE IJ Last administered on 08/05/16 10:04; Start 08/05/16 at 10:00; Stop 08/05/16 at 10:02 ; Status DC Heparin Sodium/ Sodium Chloride 60 unit 1X ONCE IV Last administered on 10:04; Start 08/05/16 at 10:00; Stop 08/05/16 at 10:02; Status DC Heparin Sodium (Porcine) 2,800 unit 1X ONCE INT CAT Last administered on 10:04; Start 08/05/16 at 10:00; Stop 08/05/16 at 10:02; Status DC Info (PHARMACY MONITORING -- do not chart) 1 each PRN DAILY PRN MC SEE COMMENTS ; Start 08/05/16 at 10:30; Stop 08/05/16 at 10:30; Status DC Info (PHARMACY MONITORING -- do not chart) 1 each PRN DAILY PRN MC SEE COMMENTS ; Start 08/05/16 at 10:30; Stop 08/05/16 at 10:30; Status DC Hydrocortisone Sodium Succinate 50 mg 50 mg BID IV Last administered on 20:54; Start 08/05/16 at 21:00 Sodium Chloride 160 meq/Sodium Acetate 60 meq/ Potassium Chloride 15 meq/ Potassium Acetate 30 meq/Magnesium Sulfate 25 meq/ Multivitamins/ Minerals 10 ml / Chromium/Copper/ Manganese/Seleni/ Zn 1 ml/Total Parenteral Nutrition/Amino Acids/Dextrose/ Fat Emulsion Intravenous 1,500 ml @ 62.5 mls/hr TPN CONT IV Last administered on 08/05/16 22:04; Start 08/05/16 at 22:00; Stop 08/06/16 at 21:59 Daptomycin 500 mg/ Sodium Chloride 50 ml @ 100 mls/hr Q24H IV ; Start 08/06/16 at 14:00 Sodium Chloride (Iv Sodium Chloride 0.9% 1000ml Bag) 1,000 ml @ 1,000 mls/hr Q1H PRN IV hypotension; Start 08/06/16 at 08:21; Stop 08/06/16 at 14:20 Diphenhydramine HCl (Benadryl) 25 mg 1X PRN PRN IV ITCHING; Start 08/06/16 at 08:30; Stop 08/07/16 at 08:29 Diphenhydramine HCl (Benadryl) 25 mg 1X PRN PRN IV ITCHING; Start 08/06/16 at 08:30; Stop 08/07/16 at 08:29 Sodium Chloride (Normal Saline Flush) 10 ml 1X PRN PRN IV AP catheter pack; Start 08/06/16 at 08:30; Stop 08/07/16 at 08:29 Sodium Chloride 10 ml 10 ml 1X PRN PRN IV QUARTER LINING SMOOTHER catheter pack; Start 08/06/16 at 08:30; Stop 08/07/16 at 08:29 Sodium Chloride (Iv Sodium Chloride 0.9% 1000ml Bag) 1,000 ml @ 400 mls/hr Q2H30M PRN IV PATENCY; Start 08/06/16 at 08:21; Stop 08/06/16 at 20:20 Info 1 each 1 each PRN DAILY PRN MC SEE COMMENTS; Start 08/06/16 at 08:30; Status UNV Albumin Human (Albuminar) 200 ml @ 200 mls/hr 1X STAT IV Last administered on 08/06/16t 10:09; Start 08/06/16 at 09:52; Stop 08/06/16 at 10:51 Active Scripts Active Dilaudid (Hydromorphone Hcl) 4 Mg Tablet 4 Mg PO Q6HRS Phenazopyridine Hcl 200 Mg Tablet 200 Mg PO PRN TID PRN FENTANYL 50mcg/hr (Fentanyl) 1 Each Patch.td72 1 Patch TD Q3DAYS Anaspaz (Hyoscyamine Sulfate) 0.125 Mg Tab.rapdis 0.125 Mg PO Q6HRS PRN Cefpodoxime Proxetil 200 Mg Tablet 200 Mg PO BID Sertraline Hcl 50 Mg Tablet 100 Mg PO DAILY 30 Days Protonix (Pantoprazole Sodium) 40 Mg Tablet.dr 1 Tab PO DAILY Zinc Oxide 56.7 Gm Oint...g. 1 Sang TP BID Lidocaine 35.44 Gm Oint...g. 1 Sang TP BID Ondansetron Odt (Ondansetron) 4 Mg Tab.rapdis 8 Mg PO PRN Q8HRS PRN Gas-X (Simethicone) 80 Mg Tab.chew 80 Mg PO PRN QID PRN Reported Lorazepam 0.5 Mg Tablet 0.5 Mg PO PRN BID PRN Vitals/I & O Vital Sign - Last 24 Hours 08/05/16 08/05/16 08/05/16 08/05/16 11:00 12:00 12:00 12:00 Temp 98.0 98.0 Pulse 96 94 84 Resp 20 20 B/P 132/66 133/70 135/63 Pulse Ox 100 100 O2 Delivery Ventilator Ventilator Mechanical Ventilator 08/05/16 08/05/16 08/05/16 08/05/16 12:16 12:33 12:47 13:00 Temp 98.1 97.7 98.1 97.7 Pulse 92 95 92 Resp 30 27 24 B/P 127/64 129/68 128/66 Pulse Ox 100 100 O2 Delivery Ventilator Ventilator 08/05/16 08/05/16 08/05/16 08/05/16 14:00 15:00 15:07 15:49 Pulse 84 88 93 Resp 24 22 22 B/P 130/62 166/76 121/57 Pulse Ox 100 100 100 100 O2 Delivery Ventilator Ventilator Ventilator Ventilator 08/05/16 08/05/16 08/05/16 08/05/16 16:00 16:00 16:00 17:00 Pulse 89 84 87 Resp 22 B/P 128/59 133/84 129/59 Pulse Ox 100 O2 Delivery Mechanical Ventilator Ventilator 08/05/16 08/05/16 08/05/16 08/05/16 17:00 17:45 18:01 19:00 Temp 98.1 98.1 Pulse 93 88 86 Resp 24 20 20 B/P 133/62 134/62 122/57 Pulse Ox 100 100 100 100 O2 Delivery Ventilator Ventilator Ventilator Ventilator 08/05/16 08/05/16 08/05/16 08/05/16 19:54 20:00 20:00 20:00 Temp 97.9 97.9 Pulse 87 87 Resp 20 B/P 119/54 119/54 Pulse Ox 100 100 O2 Delivery Ventilator Ventilator Mechanical Ventilator 08/05/16 08/05/16 08/05/16 08/05/16 21:00 22:00 23:00 23:22 Pulse 90 88 87 Resp 20 20 20 B/P 122/54 158/77 119/64 Pulse Ox 100 100 100 100 O2 Delivery Ventilator Ventilator Ventilator Ventilator 08/06/16 08/06/16 08/06/16 08/06/16 00:00 00:00 01:00 01:51 Temp 97.8 97.8 Pulse 81 82 Resp 20 20 B/P 118/59 127/65 Pulse Ox 100 100 100 O2 Delivery Mechanical Ventilator Ventilator Ventilator Ventilator 08/06/16 08/06/16 08/06/16 08/06/16 02:00 03:00 03:47 04:00 Pulse 90 86 Resp 20 20 B/P 113/59 136/63 Pulse Ox 100 100 100 O2 Delivery Ventilator Ventilator Ventilator Mechanical Ventilator 08/06/16 08/06/16 08/06/16 08/06/16 04:00 05:00 05:34 06:00 Temp 97.8 97.8 Pulse 93 100 94 Resp 20 20 20 B/P 113/56 139/64 155/73 Pulse Ox 100 100 100 100 O2 Delivery Ventilator Ventilator Ventilator Ventilator 08/06/16 08/06/16 08/06/16 07:17 07:46 09:23 Pulse Ox 100 100 100 O2 Delivery Ventilator Ventilator Ventilator Intake and Output 08/05/16 08/05/16 08/06/16 15:00 23:00 07:00 Intake Total 197.25 ml 810 ml 955 ml Output Total 205 ml 645 ml 1395 ml Balance -7.75 ml 165 ml -440 ml MATT PALACIOS MD Aug 06, 2016 10:23
--- NOTE | 2016-08-06 10:35 | PDOC ---
PROGRESS NOTES Subjective Subjective intubated. eyes open . off of pressors. receiving hemodialysis.lab reviewed. cxr without lung infiltrates. Objective Objective Vital Signs Date Time Temp Pulse Resp B/P Pulse Ox O2 Delivery O2 Flow Rate FiO2 08/06/16 09:23 100 Ventilator 08/06/16 06:00 94 20 155/73 08/06/16 04:00 97.8 97.8 08/04/16 03:55 50.0 Intake and Output 08/06/16 07:00 Intake Total 1962.25 ml Output Total 2245 ml Balance -282.75 ml IV Total 1834.25 ml Blood Product IV Normal Saline Flush 128 ml Output Urine Total 885 ml Other 1360 ml Physical Exam Abdomen: Soft Heart: Regular rate, Normal S1, Normal S2 Extremities: Other (2 plus edema arms) General: Alert HEENT: Atraumatic Lungs: Clear to auscultation Neuro: Other (sedated) Psych/Mental Status: Other (sedated) Skin: No rashes Assessment Assessment Problems Medical Problems::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 off pressors acute hypoxic respiratory failure. intubated on ventilator metabolic encephalopathy acute kidney injury due to ATN from sepsis. . bilateral lung infiltrates resolved disseminated intravascular coagulation thrombocytopenia due to platelet antibody and sepsis picc associated fungemia with sepsis and shock. picc removed 4. Enterocutaneous fistula. 5. Enterovesical fistula. 6. Anemia of chronic disease. 7. Moderately severe protein calorie malnutrition. (1) Abdominal pain Status: Acute (2) Enterocutaneous fistula Status: Acute (3) Sepsis Status: Acute (4) Urinary tract infection Status: Acute (5) UTI (urinary tract infection) Status: Acute Plan Plan of Care continue iv daptomycin and micafungin and tygacil ventilator support hemodialysis today TPN Comment Review of Relevant I have reviewed the following items lucila (where applicable) has been applied. Labs Laboratory Tests Test 08/04/16 11:03 08/04/16 17:49 08/05/16 00:00 08/05/16 05:30 Glucose (Fingerstick) 161mg/dL (70-99) 194mg/dL (70-99) 190mg/dL (70-99) White Blood Count 7.5x10^3/uL (4.0-11.0) Red Blood Count 3.02x10^6/uL (3.50-5.40) Hemoglobin 7.7g/dL (12.0-15.5) Hematocrit 23.8% (36.0-47.0) Mean Corpuscular Volume 79fL (79-100) Mean Corpuscular Hemoglobin 26pg (25-35) Mean Corpuscular Hemoglobin Concent 32g/dL (31-37) Red Cell Distribution Width 20.2% (11.5-14.5) Platelet Count 46x10^3/uL (140-400) Neutrophils (%) (Auto) 83% (31-73) Lymphocytes (%) (Auto) 10% (24-48) Monocytes (%) (Auto) 7% (0-9) Eosinophils (%) (Auto) 0% (0-3) Basophils (%) (Auto) 0% (0-3) Neutrophils # (Auto) 6.3x10^3uL (1.8-7.7) Lymphocytes # (Auto) 0.8x10^3/uL (1.0-4.8) Monocytes # (Auto) 0.5x10^3/uL (0.0-1.1) Eosinophils # (Auto) 0.0x10^3/uL (0.0-0.7) Basophils # (Auto) 0.0x10^3/uL (0.0-0.2) Prothrombin Time 36.0SEC (11.7-14.0) Prothromb Time International Ratio 3.9 (0.8-1.1) Fibrinogen < 60mg/dL (200-440) Sodium Level 143mmol/L (136-145) Potassium Level 3.5mmol/L (3.5-5.1) Chloride Level 108mmol/L (98-107) Carbon Dioxide Level 25mmol/L (21-32) Anion Gap 10 (6-14) Blood Urea Nitrogen 79mg/dL (7-20) Creatinine 1.8mg/dL (0.6-1.0) Estimated GFR (Cockcroft-Gault) 34.6 Glucose Level 210mg/dL (70-99) Lactic Acid Level 2.1mmol/L (0.4-2.0) Calcium Level 8.5mg/dL (8.5-10.1) Phosphorus Level 5.1mg/dL (2.6-4.7) Magnesium Level 3.1mg/dL (1.8-2.4) Test 08/05/16 05:32 08/05/16 08:00 08/05/16 13:15 08/05/16 13:17 Glucose (Fingerstick) 186mg/dL (70-99) 133mg/dL (70-99) O2 Saturation 99% (92-99) Arterial Blood pH 7.47 (7.35-7.45) Arterial Blood pCO2 at Patient Temp 32mmHg (35-46) Arterial Blood pO2 at Patient Temp 199mmHg (65-108) Arterial Blood HCO3 23mmol/L (21-28) Arterial Blood Base Excess -1mmol/L (-3-3) FiO2 40 Prothrombin Time 16.1SEC (11.7-14.0) Prothromb Time International Ratio 1.4 (0.8-1.1) Fibrinogen 102mg/dL (200-440) Test 08/05/16 23:50 08/06/16 05:23 08/06/16 05:25 08/06/16 08:00 Glucose (Fingerstick) 153mg/dL (70-99) 175mg/dL (70-99) White Blood Count 8.2x10^3/uL (4.0-11.0) Red Blood Count 3.24x10^6/uL (3.50-5.40) Hemoglobin 8.2g/dL (12.0-15.5) Hematocrit 25.1% (36.0-47.0) Mean Corpuscular Volume 78fL (79-100) Mean Corpuscular Hemoglobin 25pg (25-35) Mean Corpuscular Hemoglobin Concent 33g/dL (31-37) Red Cell Distribution Width 20.4% (11.5-14.5) Platelet Count 49x10^3/uL (140-400) Neutrophils (%) (Auto) 81% (31-73) Lymphocytes (%) (Auto) 12% (24-48) Monocytes (%) (Auto) 7% (0-9) Eosinophils (%) (Auto) 0% (0-3) Basophils (%) (Auto) 0% (0-3) Neutrophils # (Auto) 6.6x10^3uL (1.8-7.7) Lymphocytes # (Auto) 1.0x10^3/uL (1.0-4.8) Monocytes # (Auto) 0.6x10^3/uL (0.0-1.1) Eosinophils # (Auto) 0.0x10^3/uL (0.0-0.7) Basophils # (Auto) 0.0x10^3/uL (0.0-0.2) Fibrinogen 68mg/dL (200-440) Sodium Level 145mmol/L (136-145) Potassium Level 3.1mmol/L (3.5-5.1) Chloride Level 105mmol/L (98-107) Carbon Dioxide Level 27mmol/L (21-32) Anion Gap 13 (6-14) Blood Urea Nitrogen 72mg/dL (7-20) Creatinine 1.4mg/dL (0.6-1.0) Estimated GFR (Cockcroft-Gault) 46.3 Glucose Level 177mg/dL (70-99) Lactic Acid Level 2.0mmol/L (0.4-2.0) Calcium Level 8.9mg/dL (8.5-10.1) Phosphorus Level 4.8mg/dL (2.6-4.7) Magnesium Level 2.6mg/dL (1.8-2.4) O2 Saturation 99% (92-99) Arterial Blood pH 7.51 (7.35-7.45) Arterial Blood pCO2 at Patient Temp 30mmHg (35-46) Arterial Blood pO2 at Patient Temp 208mmHg (65-108) Arterial Blood HCO3 24mmol/L (21-28) Arterial Blood Base Excess 1mmol/L (-3-3) FiO2 40% Laboratory Tests Test 08/05/16 13:15 08/05/16 13:17 08/05/16 23:50 08/06/16 05:23 Prothrombin Time 16.1SEC (11.7-14.0) Prothromb Time International Ratio 1.4 (0.8-1.1) Fibrinogen 102mg/dL (200-440) Glucose (Fingerstick) 133mg/dL (70-99) 153mg/dL (70-99) 175mg/dL (70-99) Test 08/06/16 05:25 08/06/16 08:00 White Blood Count 8.2x10^3/uL (4.0-11.0) Red Blood Count 3.24x10^6/uL (3.50-5.40) Hemoglobin 8.2g/dL (12.0-15.5) Hematocrit 25.1% (36.0-47.0) Mean Corpuscular Volume 78fL (79-100) Mean Corpuscular Hemoglobin 25pg (25-35) Mean Corpuscular Hemoglobin Concent 33g/dL (31-37) Red Cell Distribution Width 20.4% (11.5-14.5) Platelet Count 49x10^3/uL (140-400) Neutrophils (%) (Auto) 81% (31-73) Lymphocytes (%) (Auto) 12% (24-48) Monocytes (%) (Auto) 7% (0-9) Eosinophils (%) (Auto) 0% (0-3) Basophils (%) (Auto) 0% (0-3) Neutrophils # (Auto) 6.6x10^3uL (1.8-7.7) Lymphocytes # (Auto) 1.0x10^3/uL (1.0-4.8) Monocytes # (Auto) 0.6x10^3/uL (0.0-1.1) Eosinophils # (Auto) 0.0x10^3/uL (0.0-0.7) Basophils # (Auto) 0.0x10^3/uL (0.0-0.2) Fibrinogen 68mg/dL (200-440) Sodium Level 145mmol/L (136-145) Potassium Level 3.1mmol/L (3.5-5.1) Chloride Level 105mmol/L (98-107) Carbon Dioxide Level 27mmol/L (21-32) Anion Gap 13 (6-14) Blood Urea Nitrogen 72mg/dL (7-20) Creatinine 1.4mg/dL (0.6-1.0) Estimated GFR (Cockcroft-Gault) 46.3 Glucose Level 177mg/dL (70-99) Lactic Acid Level 2.0mmol/L (0.4-2.0) Calcium Level 8.9mg/dL (8.5-10.1) Phosphorus Level 4.8mg/dL (2.6-4.7) Magnesium Level 2.6mg/dL (1.8-2.4) O2 Saturation 99% (92-99) Arterial Blood pH 7.51 (7.35-7.45) Arterial Blood pCO2 at Patient Temp 30mmHg (35-46) Arterial Blood pO2 at Patient Temp 208mmHg (65-108) Arterial Blood HCO3 24mmol/L (21-28) Arterial Blood Base Excess 1mmol/L (-3-3) FiO2 40% Microbiology 08/01/16 Blood Culture - Final, Complete NO GROWTH AFTER 5 DAYS 07/15/16 Urine Culture - Final, Complete 07/15/16 Urine Culture Result 1 (ROYA) - Final, Complete 07/15/16 Urine Culture Result 2 (ROYA) - Final, Complete 07/15/16 Antimicrobic Susceptibility - Final, Complete 07/29/16 Aerobic Culture - Final, Complete 07/29/16 Aerobic Culture Result 1 (ROYA) - Final, Complete Medications Current Medications Piperacillin Sod/ Tazobactam Sod/ Sodium Chloride (Zosyn/Iv Sodium Chloride 0.9 % 100ml) 100 ml @ 200 mls/hr 1X ONCE IV Last administered on 07/15/16 22:56; Start 07/15/16 at 22:00; Stop 07/15/16 at 22:29; Status DC Fentanyl Citrate 50 mcg 50 mcg PRN Q15MIN PRN IV PAIN GREATER THAN 3/10 Last administered on 07/16/16 00:30; Start 07/15/16 at 21:45; Stop 07/16/16 at 02:00; Status DC Sodium Chloride 1,000 ml @ 1,000 mls/hr 1X ONCE IV Last administered on 21:59; Start 07/15/16 at 22:00; Stop 07/15/16 at 22:59; Status DC Sodium Chloride (Iv Sodium Chloride 0.9% 500ml Bag) 500 ml @ 500 mls/hr 1X ONCE IV Last administered on 07/15/16 22:00; Start 07/15/16 at 22:00; Stop at 22:59; Status DC Ondansetron HCl (Zofran) 4 mg PRN Q8HRS PRN IV NAUSEA/VOMITING; Start 07/15/16 at 23:30; Stop 07/16/16 at 08:52; Status DC Fentanyl Citrate 50 mcg 50 mcg PRN Q2HR PRN IV SEVERE PAIN Last administered on 07/16/16 08:10; Start 07/15/16 at 23:30; Stop 07/16/16 at 08:52; Status DC Sodium Chloride (Iv Sodium Chloride 0.9% 1000ml Bag) 1,000 ml @ 150 mls/hr Q6H40M IV Last administered on 07/15/16 02:00; Start 07/15/16 at 23:45; Stop 07/16/16 at 08:52; Status DC Acetaminophen (Tylenol) 650 mg PRN Q4HRS PRN PO FEVER; Start 07/15/16 at 23:30; Stop 07/16/16 at 23:29; Status DC Info (Do NOT chart on this placeholder) 1 each PRN DAILY PRN MC NEEDS VERIFICATION; Start 07/16/16 at 03:00; Status Cancel Acetaminophen 650 mg 650 mg PRN Q4HRS PRN PO MILD PAIN / TEMP Last administered on 07/28/16 07:42; Start 07/16/16 at 08:45; Stop 07/29/16 at 08:33 ; Status DC Piperacillin Sod/ Tazobactam Sod 3.375 gm/Sodium Chloride 50 ml @ 100 mls/hr Q6HRS IV Last administered on 07/18/16 05:50; Start 07/16/16 at 10:00; Stop 07/18 at 13:28; Status DC Linezolid (Zyvox Premix) 300 ml @ 300 mls/hr Q12HR IV Last administered on 07/18 08:34; Start 07/16/16 at 10:00; Stop 07/18/16 at 13:28; Status DC Hydromorphone HCl (Dilaudid) 2 mg PRN Q4HRS PRN IV MODERATE PAIN Last administered on 07/28/16 23:33; Start 07/16/16 at 08:45 Hydromorphone HCl (Dilaudid) 4 mg PRN Q4HRS PRN IV SEVERE PAIN Last administered on 07/30/16 09:23; Start 07/16/16 at 08:45; Stop 07/31/16 at 15:01 ; Status DC Pantoprazole Sodium (Protonix) 40 mg DAILYAC PO Last administered on 07/27/16 11:11; Start 07/16/16 at 09:30; Stop 07/29/16 at 08:44; Status DC Hyoscyamine (Anaspaz) 0.125 mg Q6HRS PO Last administered on 07/20/16 05:20; Start 07/16/16 at 12:00; Stop 07/20/16 at 08:58; Status DC Phenazopyridine HCl (Pyridium) 200 mg TID PO Last administered on 07/20/16 08: 25; Start 07/16/16 at 09:30; Stop 07/20/16 at 08:58; Status DC Lorazepam (Ativan) 0.5 mg PRN BID PRN PO ANXIETY / AGITATION Last administered on 07/29/16 02:16; Start 07/16/16 at 08:45; Stop 07/31/16 at 15:01; Status DC Simethicone (Gas-X) 80 mg PRN Q4HRS PRN PO GAS / BLOATING Last administered on 07/24/16 22:30; Start 07/16/16 at 08:45; Stop 07/31/16 at 15:01; Status DC Zolpidem Tartrate 5 mg 5 mg PRN QHS PRN PO INSOMNIA Last administered on 23:14; Start 07/16/16 at 08:45; Stop 07/31/16 at 15:01; Status DC Potassium Chloride/Dextrose/ Sod Cl 1,000 ml @ 80 mls/hr [id number] IV Last administered on 07/16/16 10:54; Start 07/16/16 at 09:30; Stop 07/16/16 at 21:59; Status DC Fluconazole/ Sodium Chloride (Diflucan 200mg/ 100ml Premix) 100 ml @ 100 mls/ hr Q24H IV Last administered on 07/18/16 11:43; Start 07/16/16 at 11:00; Stop at 13:28; Status DC Info 1 each 1 each PRN DAILY PRN MC SEE COMMENTS Last administered on 12:41; Start 07/16/16 at 10:00; Stop 08/01/16 at 11:24; Status DC Sodium Chloride 220 meq/Sodium Acetate 90 meq/ Potassium Chloride 50 meq/ Potassium Acetate 15 meq/Potassium Phosphate 10 mmol/ Magnesium Sulfate 50 meq/ Calcium Gluconate 6 meq/ Multivitamins/ Minerals 10 ml/ Chromium/Copper/ Manganese/Seleni/ Zn 1 ml/Total Parenteral Nutrition/Amino Acids/Dextro... 1, 920 ml @ 80 mls/hr TPN CONT IV ; Start 07/16/16 at 22:00; Stop 07/16/16 at 22:00 ; Status DC Sodium Chloride/ Sodium Acetate/ Potassium Chloride/ Potassium Acetate/ Potassium Phosphate/ Magnesium Sulfate/ Calcium Gluconate/ Multivitamins/ Minerals/Chromium/ Copper/Manganese/ Seleni/Zn/Total Parenteral Nutrition/Amino Acids/Dextrose/ Fat Emulsion Intravenous (Sodium Chlori... 1,820 ml @ 75.833 mls/ hr TPN CONT IV Last administered on 07/16/16 21:03; Start 07/16/16 at 22: 00; Stop 07/17/16 at 21:59; Status DC Ondansetron HCl (Zofran) 4 mg PRN Q6HRS PRN IV NAUSEA/VOMITING Last administered on 07/21/16 08:48; Start 07/16/16 at 17:15; Stop 07/31/16 at 15:01; Status DC Diphenhydramine HCl (Benadryl) 25 mg PRN Q6HRS PRN PO ITCHING Last administered on 07/25/16 23:38; Start 07/16/16 at 17:45; Stop 07/31/16 at 15:01 ; Status DC Lidocaine (Xylocaine) 1 sang BID TP Last administered on 08/05/16 20:57; Start 07/17/16 at 09:00 Zinc Oxide 1 sang 1 sang BID TP Last administered on 08/05/16 20:57; Start at 09:30 Sodium Chloride/ Sodium Acetate/ Potassium Chloride/ Potassium Acetate/ Potassium Phosphate/ Magnesium Sulfate/ Calcium Gluconate/ Multivitamins/ Minerals/Chromium/ Copper/Manganese/ Seleni/Zn/Total Parenteral Nutrition/Amino Acids/Dextrose/ Fat Emulsion Intravenous (Sodium Chlori... 1,920 ml @ 80 mls/ hr TPN CONT IV Last administered on 07/17/16 22:13; Start 07/17/16 at 22:00; Stop 07/18/16 at 21:59; Status DC Furosemide 40 mg 40 mg 1X ONCE IVP Last administered on 07/18/16 11:43; Start 07/18/16 at 11:00; Stop 07/18/16 at 11:07; Status DC Sodium Chloride 220 meq/Sodium Acetate 90 meq/ Potassium Chloride 50 meq/ Potassium Acetate 15 meq/Potassium Phosphate 10 mmol/ Magnesium Sulfate 50 meq/ Calcium Gluconate 3 meq/ Multivitamins/ Minerals 10 ml/ Chromium/Copper/ Manganese/Seleni/ Zn 1 ml/Total Parenteral Nutrition/Amino Acids/Dextro... 1, 920 ml @ 80 mls/hr TPN CONT IV Last administered on 07/19/16 00:03; Start 07/18/16 at 22:00; Stop 07/19/16 at 21:59; Status DC Meropenem 1 gm/ Sodium Chloride 100 ml @ 200 mls/hr Q8HRS IV Last administered on 07/20/16 05:21; Start 07/18/16 at 14:00; Stop 07/20/16 at 11:25; Status DC Micafungin Sodium 100 mg/Dextrose 100 ml @ 100 mls/hr Q24H IV Last administered on 07/19/16 15:05; Start 07/18/16 at 14:00; Stop 07/20/16 at 11:25; Status DC Daptomycin/Sodium Chloride (Cubicin/Iv Sodium Chloride 0.9% 50ml) 50 ml @ 100 mls/hr Q24H IV Last administered on 07/19/16 16:56; Start 07/18/16 at 15:00; Stop 07/20/16 at 11:25; Status DC Alteplase, Recombinant (Cathflo) 2 mg 1X ONCE INT CAT Last administered on 07/19 06:24; Start 07/19/16 at 07:00; Stop 07/19/16 at 07:01; Status DC Gentamicin Sulfate 1 each 1 each PRN DAILY PRN MC SEE COMMENTS Last administered on 07/25/16 15:31; Start 07/19/16 at 12:15; Stop 07/25/16 at 16:14 ; Status DC Gentamicin Sulfate/Sodium Chloride (Iv Sodium Chloride 0.9% 100ml) 106.75 ml @ 106.75 mls/hr Q24H IV Last administered on 07/25/16 15:31; Start 07/19/16 at 13 :00; Stop 07/25/16 at 16:12; Status DC Gentamicin Sulfate 1 each 1 each 1X ONCE MC Last administered on 07/19/16 23: 00; Start 07/19/16 at 23:00; Stop 07/19/16 at 23:01; Status DC Sodium Chloride/ Sodium Acetate/ Potassium Chloride/ Potassium Acetate/ Potassium Phosphate/ Magnesium Sulfate/ Calcium Gluconate/ Multivitamins/ Minerals/Chromium/ Copper/Manganese/ Seleni/Zn/Total Parenteral Nutrition/Amino Acids/Dextrose/ Fat Emulsion Intravenous (Sodium Chlori... 1,920 ml @ 80 mls/ hr TPN CONT IV Last administered on 07/19/16 20:51; Start 07/19/16 at 22:00; Stop 07/20/16 at 21:59; Status DC Hyoscyamine (Anaspaz) 0.125 mg PRN Q6HRS PRN PO BLADDER SPASM; Start 07/20/16 at 09:00; Stop 07/31/16 at 15:01; Status DC Phenazopyridine HCl 200 mg 200 mg PRN TID PRN PO BLADDER SPASM Last administered on 07/21/16 20:14; Start 07/20/16 at 09:00; Stop 07/31/16 at 15:01; Status DC Linezolid 300 ml @ 300 mls/hr Q12HR IV Last administered on 07/25/16 09:02; Start 07/20/16 at 12:00; Stop 07/25/16 at 16:12; Status DC Sodium Chloride 220 meq/Sodium Acetate 90 meq/ Potassium Chloride 50 meq/ Potassium Acetate 15 meq/Potassium Phosphate 10 mmol/ Magnesium Sulfate 50 meq/ Calcium Gluconate 3 meq/ Multivitamins/ Minerals 10 ml/ Chromium/Copper/ Manganese/Seleni/ Zn 1 ml/Total Parenteral Nutrition/Amino Acids/Dextro... 1, 920 ml @ 80 mls/hr TPN CONT IV Last administered on 07/20/16 21:30; Start 07/20/16 at 22:00; Stop 07/21/16 at 21:59; Status DC Sodium Chloride/ Sodium Acetate/ Potassium Chloride/ Potassium Acetate/ Potassium Phosphate/ Magnesium Sulfate/ Multivitamins/ Minerals/Chromium/ Copper /Manganese/ Seleni/Zn/Total Parenteral Nutrition/Amino Acids/Dextrose/ Fat Emulsion Intravenous (Sodium Chloride/ Potass... 1,920 ml @ 80 mls/hr TPN CONT IV Last administered on 07/21/16 22:05; Start 07/21/16 at 22:00; Stop at 21:59; Status DC Alteplase, Recombinant 2 mg 2 mg PRN DAILY PRN INT CAT INFLAMMATION Last administered on 07/27/16 11:31; Start 07/21/16 at 15:00 Sodium Chloride 220 meq/Sodium Acetate 90 meq/ Potassium Chloride 50 meq/ Potassium Acetate 15 meq/Potassium Phosphate 10 mmol/ Magnesium Sulfate 50 meq/ Multivitamins/ Minerals 10 ml/ Chromium/Copper/ Manganese/Seleni/ Zn 1 ml/Total Parenteral Nutrition/Amino Acids/Dextrose/ Fat Emuls... 1,920 ml @ 80 mls/hr TPN CONT IV Last administered on 07/22/16 20:53; Start 07/22/16 at 22:00; Stop 07/23/16 at 21:59; Status DC Sodium Chloride/ Sodium Acetate/ Potassium Chloride/ Potassium Acetate/ Potassium Phosphate/ Magnesium Sulfate/ Multivitamins/ Minerals/Chromium/ Copper /Manganese/ Seleni/Zn/Total Parenteral Nutrition/Amino Acids/Dextrose/ Fat Emulsion Intravenous (Sodium Chloride/ Potass... 1,920 ml @ 80 mls/hr TPN CONT IV Last administered on 07/23/16 21:16; Start 07/23/16 at 22:00; Stop 07/24 at 21:59; Status DC Gentamicin Sulfate 1 each 1 each 1X ONCE MC ; Start 07/23/16 at 22:00; Stop 07/23 at 22:01; Status Cancel Sodium Chloride/ Sodium Acetate/ Potassium Chloride/ Potassium Acetate/ Potassium Phosphate/ Magnesium Sulfate/ Multivitamins/ Minerals/Chromium/ Copper /Manganese/ Seleni/Zn/Total Parenteral Nutrition/Amino Acids/Dextrose/ Fat Emulsion Intravenous (Sodium Chloride/ Potass... 1,920 ml @ 80 mls/hr TPN CONT IV Last administered on 07/24/16 21:15; Start 07/24/16 at 22:00; Stop 04/30 at 21:59; Status DC Gentamicin Sulfate 1 each 1X ONCE MC ; Start 07/25/16 at 12:30; Stop 07/25/16 at 12:31; Status Cancel Amlodipine Besylate 5 mg 5 mg DAILY PO Last administered on 07/27/16 11:12; Start 07/25/16 at 12:00; Stop 07/29/16 at 08:44; Status DC Sodium Chloride 220 meq/Sodium Acetate 90 meq/ Potassium Chloride 30 meq/ Potassium Acetate 15 meq/Potassium Phosphate 10 mmol/ Magnesium Sulfate 50 meq/ Multivitamins/ Minerals 10 ml/ Chromium/Copper/ Manganese/Seleni/ Zn 1 ml/Total Parenteral Nutrition/Amino Acids/Dextrose/ Fat Emuls... 1,920 ml @ 80 mls/hr TPN CONT IV Last administered on 07/25/16 22:25; Start 07/25/16 at 22:00; Stop 07/26/16 at 21:59; Status DC Sodium Chloride/ Sodium Acetate/ Potassium Chloride/ Potassium Acetate/ Potassium Phosphate/ Magnesium Sulfate/ Multivitamins/ Minerals/Chromium/ Copper /Manganese/ Seleni/Zn/Total Parenteral Nutrition/Amino Acids/Dextrose/ Fat Emulsion Intravenous (Sodium Chloride/ Potass... 1,920 ml @ 80 mls/hr TPN CONT IV Last administered on 07/26/16 23:16; Start 07/26/16 at 22:00; Stop at 21:59; Status DC Furosemide 20 mg 20 mg 1X ONCE IVP Last administered on 07/27/16 11:31; Start 07/27/16 at 09:00; Stop 07/27/16 at 09:01; Status DC Daptomycin 340 mg/ Sodium Chloride 50 ml @ 100 mls/hr Q24H IV Last administered on 07/29/16 15:05; Start 07/27/16 at 13:00; Stop 07/30/16 at 07:25 ; Status DC Piperacillin Sod/ Tazobactam Sod 3.375 gm/Sodium Chloride 50 ml @ 100 mls/hr Q6HRS IV Last administered on 07/30/16 05:30; Start 07/27/16 at 12:30; Stop at 07:25; Status DC Fluconazole/ Sodium Chloride 100 ml @ 100 mls/hr Q24H IV Last administered on 07/28/16 13:32; Start 07/27/16 at 13:00; Stop 07/29/16 at 00:53; Status DC Sodium Chloride 1,000 ml @ 1,000 mls/hr 1X ONCE IV Last administered on 12:34; Start 07/27/16 at 12:30; Stop 07/27/16 at 13:29; Status DC Sodium Chloride 220 meq/Sodium Acetate 90 meq/ Potassium Chloride 30 meq/ Potassium Acetate 15 meq/Potassium Phosphate 10 mmol/ Magnesium Sulfate 45 meq/ Multivitamins/ Minerals 10 ml/ Chromium/Copper/ Manganese/Seleni/ Zn 1 ml/Total Parenteral Nutrition/Amino Acids/Dextrose/ Fat Emuls... 1,920 ml @ 80 mls/hr TPN CONT IV Last administered on 07/27/16 22:38; Start 07/27/16 at 22:00; Stop 07/28/16 at 21:59; Status DC Sodium Chloride (Iv Sodium Chloride 0.9% 1000ml Bag) 1,000 ml @ 45 mls/hr [id number] IV Last administered on 07/28/16 03:24; Start 07/27/16 at 17:00; Stop 07/28/16 at 10:27; Status DC Acetaminophen 650 mg 650 mg PRN Q6HRS PRN AR fever Last administered on 03:57; Start 07/27/16 at 16:30; Stop 07/29/16 at 08:33; Status DC Sodium Chloride 1,000 ml @ 427.5 mls/ hr Q2H21M IV Last administered on 19:30; Start 07/27/16 at 19:30; Stop 07/27/16 at 23:30; Status DC Sodium Chloride 220 meq/Sodium Acetate 90 meq/ Potassium Chloride 30 meq/ Potassium Acetate 15 meq/Potassium Phosphate 10 mmol/ Magnesium Sulfate 45 meq/ Multivitamins/ Minerals 10 ml/ Chromium/Copper/ Manganese/Seleni/ Zn 1 ml/Total Parenteral Nutrition/Amino Acids/Dextrose/ Fat Emuls... 1,920 ml @ 80 mls/hr TPN CONT IV Last administered on 07/28/16 21:43; Start 07/28/16 at 22:00; Stop 07/29/16 at 21:59; Status DC Micafungin Sodium/ Dextrose (Mycamine) 100 ml @ 100 mls/hr Q24H IV Last administered on 08/06/16 00:30; Start 07/29/16 at 01:00 Lorazepam (Ativan) 0.05 mg PRN Q4HRS PRN IV ANXIETY / AGITATION; Start at 02:30; Stop 07/29/16 at 02:48; Status DC Lorazepam (Ativan) 0.5 mg PRN Q4HRS PRN IV ANXIETY / AGITATION Last administered on 07/29/16 03:18; Start 07/29/16 at 03:00 Acetaminophen (Tylenol) 650 mg PRN Q4HRS PRN AR MILD PAIN / TEMP; Start at 08:30 Ketorolac Tromethamine (Toradol) 30 mg PRN Q6HRS PRN IV PAIN/FEVER Last administered on 07/30/16 00:50; Start 07/29/16 at 08:30; Stop 07/30/16 at 13:01 ; Status DC Pantoprazole Sodium 40 mg 40 mg DAILYAC IVP Last administered on 08/05/16 14: 26; Start 07/29/16 at 09:00 Sodium Chloride 1,000 ml @ 45 mls/hr [id number] IV Last administered on 09:17; Start 07/29/16 at 08:45; Stop 07/31/16 at 15:01; Status DC Sodium Chloride/ Sodium Acetate/ Potassium Chloride/ Potassium Acetate/ Potassium Phosphate/ Magnesium Sulfate/ Multivitamins/ Minerals/Chromium/ Copper /Manganese/ Seleni/Zn/Total Parenteral Nutrition/Amino Acids/Dextrose/ Fat Emulsion Intravenous (Sodium Chloride/ Potass... 1,920 ml @ 80 mls/hr TPN CONT IV Last administered on 07/29/16 22:06; Start 07/29/16 at 22:00; Stop at 21:59; Status DC Lidocaine/Sodium Bicarbonate 20 ml 20 ml STK-MED ONCE IJ ; Start 07/29/16 at 13: 13; Stop 07/29/16 at 13:14; Status DC Heparin Sodium/ Sodium Chloride 500 ml @ As Directed STK-MED ONCE .ROUTE ; Start 07/29/16 at 13:13; Stop 07/29/16 at 13:14; Status DC Lidocaine/ Epinephrine (Xylocaine 1%-Epi 1:100,000) 20 ml STK-MED ONCE .ROUTE ; Start 07/29/16 at 13:22; Stop 07/29/16 at 13:23; Status DC Midazolam HCl (Versed) 5 mg STK-MED ONCE .ROUTE ; Start 07/29/16 at 13:32; Stop 07/29/16 at 13:33; Status DC Fentanyl Citrate (Fentanyl 5ml Vial) 250 mcg STK-MED ONCE .ROUTE ; Start at 13:32; Stop 07/29/16 at 13:33; Status DC Heparin Sodium/ Sodium Chloride 1,000 unit 1X ONCE IART Last administered on 13:45; Start 07/29/16 at 13:45; Stop 07/29/16 at 13:48; Status DC Midazolam HCl (Versed) 5 mg 1X ONCE IV Last administered on 07/29/16 13:45; Start 07/29/16 at 13:45; Stop 07/29/16 at 13:48; Status DC Fentanyl Citrate (Fentanyl 5ml Vial) 250 mcg 1X ONCE IV Last administered on 13:45; Start 07/29/16 at 13:45; Stop 07/29/16 at 13:48; Status DC Lidocaine/ Epinephrine 20 ml 20 ml 1X ONCE IJ Last administered on 07/29/16 13:45; Start 07/29/16 at 13:45; Stop 07/29/16 at 13:48; Status DC Sodium Chloride 220 meq/Sodium Acetate 90 meq/ Potassium Chloride 15 meq/ Potassium Acetate 30 meq/Potassium Phosphate 10 mmol/ Magnesium Sulfate 45 meq/ Multivitamins/ Minerals 10 ml/ Chromium/Copper/ Manganese/Seleni/ Zn 1 ml/Total Parenteral Nutrition/Amino Acids/Dextrose/ Fat Emuls... 1,920 ml @ 80 mls/hr TPN CONT IV ; Start 07/30/16 at 22:00; Stop 07/31/16 at 21:59; Status DC Norepinephrine Bitartrate 8 mg/ Sodium Chloride 258 ml @ 1.93 mls/hr 1X ONCE IV Last administered on 07/30/16 11:17; Start 07/30/16 at 11:15; Stop at 15:43; Status DC Norepinephrine Bitartrate/Sodium Chloride (Levophed Vial/ Iv Sodium Chloride 0.9 % 250ml) 258 ml @ 0 mls/hr CONT PRN IV SEE I/O RECORD Last administered on 08/02 19:54; Start 07/30/16 at 11:15; Stop 08/04/16 at 09:29; Status DC Furosemide 60 mg 60 mg 1X ONCE IVP Last administered on 07/30/16 11:14; Start 07/30/16 at 11:15; Stop 07/30/16 at 11:16; Status DC Sodium Chloride 500 ml @ 500 mls/hr Q1H IV Last administered on 07/30/16 17: 04; Start 07/30/16 at 14:30; Stop 07/30/16 at 15:29; Status DC Albumin Human 100 ml @ 100 mls/hr Q8HRS IV Last administered on 07/31/16 05: 37; Start 07/30/16 at 14:30; Stop 07/31/16 at 06:59; Status DC Furosemide/Sodium Chloride (Lasix Drip/Iv Sodium Chloride 0.9% 100ml) 100 ml @ 0 mls/hr CONT PRN IV SEE I/O RECORD Last administered on 07/31/16 03:17; Start 07/30/16 at 14:30; Stop 08/01/16 at 13:19; Status DC Ondansetron HCl (Zofran) 8 mg PRN Q8HRS PRN IV NAUSEA/VOMITING Last administered on 07/30/16 14:38; Start 07/30/16 at 14:30 Sodium Bicarbonate 50 meq 50 meq 1X ONCE IV Last administered on 07/30/16 14: 43; Start 07/30/16 at 14:30; Stop 07/30/16 at 14:31; Status DC Heparin Sodium/ Sodium Chloride 500 ml @ As Directed STK-MED ONCE .ROUTE ; Start 07/30/16 at 14:49; Stop 07/30/16 at 14:50; Status DC Lidocaine HCl 20 ml STK-MED ONCE .ROUTE ; Start 07/30/16 at 14:49; Stop at 14:50; Status DC Midazolam HCl (Versed) 2 mg STK-MED ONCE .ROUTE ; Start 07/30/16 at 15:19; Stop 07/30/16 at 15:20; Status DC Heparin Sodium/ Sodium Chloride 1,000 unit 1X ONCE IART Last administered on 15:44; Start 07/30/16 at 15:45; Stop 07/30/16 at 15:46; Status DC Midazolam HCl (Versed) 1.5 mg 1X ONCE IV Last administered on 07/30/16 15:44 ; Start 07/30/16 at 15:45; Stop 07/30/16 at 15:46; Status DC Lidocaine HCl 20 ml 1X ONCE IJ Last administered on 07/30/16 15:44; Start at 15:45; Stop 07/30/16 at 15:46; Status DC Heparin Sodium (Porcine) 88336 unit 10,000 unit STK-MED ONCE .ROUTE ; Start at 15:54; Stop 07/30/16 at 15:55; Status DC Fentanyl Citrate 30 ml @ 0 mls/hr CONT PRN PRN IV PROTOCOL Last administered on 08/06/16 03:50; Start 07/30/16 at 16:45 Sodium Bicarbonate/ Dextrose 1,150 ml @ 125 mls/hr 1X ONCE IV Last administered on 07/30/16 18:34; Start 07/30/16 at 17:30; Stop 07/31/16 at 02:41 ; Status DC Succinylcholine Chloride 200 mg 200 mg STK-MED ONCE .ROUTE ; Start 07/30/16 at 19:47; Stop 07/30/16 at 19:48; Status DC Propofol 100 ml @ As Directed STK-MED ONCE IV ; Start 07/30/16 at 19:48; Stop 07/30/16 at 19:49; Status DC Midazolam HCl (Versed 100mg/ 100ml Premix) 100 ml @ 0 mls/hr CONT PRN IV SEE I/ O RECORD Last administered on 08/03/16 12:18; Start 07/30/16 at 21:15 Sodium Bicarbonate 50 meq 50 meq 1X ONCE IV Last administered on 07/30/16 22: 15; Start 07/30/16 at 22:30; Stop 07/30/16 at 22:31; Status DC Dopamine HCl/ Dextrose 250 ml @ 11.513 mls/ hr CONT PRN IV SEE I/O RECORD Last administered on 07/31/16 20:16; Start 07/30/16 at 22:15; Stop 08/04/16 at 09:29; Status DC Sodium Bicarbonate/ Dextrose 1,150 ml @ 125 mls/hr Q9H12M IV Last administered on 08/01/16 09:30; Start 07/31/16 at 03:00; Stop 08/01/16 at 13:19 ; Status DC Propofol (Diprivan) 1,000 mg STK-MED ONCE IV ; Start 07/30/16 at 20:00; Stop at 08:16; Status DC Succinylcholine Chloride 200 mg 200 mg STK-MED ONCE .ROUTE ; Start 07/30/16 at 20:00; Stop 07/31/16 at 08:16; Status DC Tigecycline 50 mg/ Sodium Chloride 50 ml @ 100 mls/hr Q12HR IV Last administered on 08/04/16 09:01; Start 07/31/16 at 21:00; Stop 08/04/16 at 10:00 ; Status DC Tigecycline/ Sodium Chloride (Tygacil/Iv Sodium Chloride 0.9% 100ml) 100 ml @ 200 mls/hr 1X ONCE IV Last administered on 07/31/16 09:22; Start 07/31/16 at 09:00; Stop 07/31/16 at 09:29; Status DC Darbepoetin Sarbjit 60 mcg 60 mcg [id number] SQ Last administered on 07/31/16 21:09 ; Start 07/31/16 at 21:00 Albumin Human 100 ml @ 100 mls/hr 1X ONCE IV Last administered on 07/31/16 11:40; Start 07/31/16 at 11:15; Stop 07/31/16 at 12:14; Status DC Albumin Human 100 ml @ 100 mls/hr 1X ONCE IV Last administered on 07/31/16 12:03; Start 07/31/16 at 11:15; Stop 07/31/16 at 12:14; Status DC Sodium Chloride (Iv Sodium Chloride 0.9% 1000ml Bag) 1,000 ml @ 1,000 mls/hr Q1H PRN IV hypotension; Start 07/31/16 at 11:33; Stop 07/31/16 at 17:32; Status DC Info (PHARMACY MONITORING -- do not chart) 1 each PRN DAILY PRN MC SEE COMMENTS ; Start 07/31/16 at 11:45 Info (PHARMACY MONITORING -- do not chart) 1 each PRN DAILY PRN MC SEE COMMENTS ; Start 07/31/16 at 11:45; Status UNV Hydrocortisone Sodium Succinate (Solu-Cortef) 100 mg Q8HRS IV Last administered on 08/04/16 06:16; Start 08/01/16 at 07:00; Stop 08/04/16 at 09:29 ; Status DC Albuterol/ Ipratropium (Duoneb) 3 ml RTQID NEB Last administered on 08/06/16 07:32; Start 08/01/16 at 08:00 Albuterol/ Ipratropium 3 ml 3 ml STK-MED ONCE .ROUTE Last administered on 07:34; Start 08/01/16 at 06:59; Stop 08/01/16 at 07:00; Status DC Sodium Chloride 1,000 ml @ 1,000 mls/hr Q1H PRN IV hypotension; Start 08/01/16 at 06:57; Stop 08/01/16 at 12:56; Status DC Albumin Human (Albuminar) 200 ml @ 200 mls/hr 1X PRN PRN IV Hypotension; Start 08/01/16 at 07:00; Stop 08/01/16 at 12:59; Status DC Info (PHARMACY MONITORING -- do not chart) 1 each PRN DAILY PRN MC SEE COMMENTS ; Start 08/01/16 at 07:00; Status UNV Info 1 each 1 each PRN DAILY PRN MC SEE COMMENTS Last administered on 14:21; Start 08/01/16 at 13:30 Sodium Chloride 220 meq/Sodium Acetate 90 meq/ Potassium Chloride 15 meq/ Potassium Acetate 30 meq/Potassium Phosphate 10 mmol/ Magnesium Sulfate 45 meq/ Multivitamins/ Minerals 10 ml/ Chromium/Copper/ Manganese/Seleni/ Zn 1 ml/Total Parenteral Nutrition/Amino Acids/Dextrose/ Fat Emuls... 1,920 ml @ 80 mls/hr TPN CONT IV Last administered on 08/01/16 21:56; Start 08/01/16 at 22:00; Stop 08/02/16 at 21:59; Status DC Potassium Chloride (KCl Premix 20meq) 50 ml @ 50 mls/hr Q1H IV Last administered on 08/01/16 19:05; Start 08/01/16 at 17:00; Stop 08/01/16 at 18:59 ; Status DC Insulin Aspart 0-6 UNITS TIDWMEALS SQ Last administered on 08/02/16 11:33; Start 08/02/16 at 12:00; Stop 08/02/16 at 14:34; Status DC Sodium Chloride 220 meq/Sodium Acetate 90 meq/ Potassium Chloride 15 meq/ Potassium Acetate 30 meq/Magnesium Sulfate 45 meq/ Multivitamins/ Minerals 10 ml / Chromium/Copper/ Manganese/Seleni/ Zn 1 ml/Total Parenteral Nutrition/Amino Acids/Dextrose/ Fat Emulsion Intravenous 1,920 ml @ 80 mls/hr TPN CONT IV Last administered on 08/02/16 21:34; Start 08/02/16 at 22:00; Stop 08/03/16 at 21:59; Status DC Levofloxacin/ Dextrose 150 ml @ 100 mls/hr 1X ONCE IV Last administered on 14:35; Start 08/02/16 at 14:00; Stop 08/02/16 at 15:29; Status DC Daptomycin/Sodium Chloride (Cubicin/Iv Sodium Chloride 0.9% 50ml) 50 ml @ 100 mls/hr ONCE ONCE IV Last administered on 08/02/16 14:34; Start 08/02/16 at 15 :00; Stop 08/02/16 at 15:29; Status DC Insulin Aspart 0-6 UNITS Q6HRS SQ Last administered on 08/06/16 05:44; Start 08/02/16 at 18:00 Sodium Chloride (Iv Sodium Chloride 0.9% 1000ml Bag) 1,000 ml @ 1,000 mls/hr Q1H PRN IV hypotension; Start 08/03/16 at 07:26; Stop 08/03/16 at 13:25; Status DC Diphenhydramine HCl (Benadryl) 25 mg 1X PRN PRN IV ITCHING; Start 08/03/16 at 07:30; Stop 08/04/16 at 07:29; Status DC Diphenhydramine HCl (Benadryl) 25 mg 1X PRN PRN IV ITCHING; Start 08/03/16 at 07:30; Stop 08/04/16 at 07:29; Status DC Sodium Chloride (Normal Saline Flush) 10 ml 1X PRN PRN IV AP catheter pack; Start 08/03/16 at 07:30; Stop 08/04/16 at 07:29; Status DC Sodium Chloride 10 ml 10 ml 1X PRN PRN IV BIOM[employer] catheter pack; Start 08/03/16 at 07:30; Stop 08/04/16 at 07:29; Status DC Sodium Chloride (Iv Sodium Chloride 0.9% 1000ml Bag) 1,000 ml @ 400 mls/hr Q2H30M PRN IV PATENCY; Start 08/03/16 at 07:26; Stop 08/03/16 at 19:25; Status DC Info 1 each 1 each PRN DAILY PRN MC SEE COMMENTS; Start 08/03/16 at 07:30; Status UNV Albumin Human 200 ml @ 200 mls/hr Q2HR IV Last administered on 08/03/16 10:00 ; Start 08/03/16 at 08:44; Stop 08/03/16 at 10:59; Status DC Sodium Chloride 160 meq/Sodium Acetate 60 meq/ Potassium Chloride 15 meq/ Potassium Acetate 30 meq/Magnesium Sulfate 25 meq/ Multivitamins/ Minerals 10 ml / Chromium/Copper/ Manganese/Seleni/ Zn 1 ml/Total Parenteral Nutrition/Amino Acids/Dextrose/ Fat Emulsion Intravenous 1,500 ml @ 62.5 mls/hr TPN CONT IV Last administered on 08/03/16 22:52; Start 08/03/16 at 22:00; Stop 08/04/16 at 21:59; Status DC Levofloxacin/ Dextrose 100 ml @ 100 mls/hr 1X ONCE IV Last administered on 10:50; Start 08/04/16 at 07:30; Stop 08/04/16 at 08:30; Status DC Daptomycin 450 mg/ Sodium Chloride 50 ml @ 100 mls/hr ONCE ONCE IV Last administered on 08/04/16 09:55; Start 08/04/16 at 08:00; Stop 08/04/16 at 08:30 ; Status DC Tigecycline/ Sodium Chloride (Tygacil/Iv Sodium Chloride 0.9% 50ml) 50 ml @ 100 mls/hr Q12HR IV Last administered on 08/05/16 20:54; Start 08/04/16 at 21: 00 Hydrocortisone Sodium Succinate 50 mg 50 mg Q8HRS IV Last administered on 05:39; Start 08/04/16 at 14:00; Stop 08/05/16 at 11:12; Status DC Furosemide 100 mg/ Sodium Chloride 100 ml @ 0 mls/hr CONT PRN IV SEE I/O RECORD Last administered on 08/05/16 18:56; Start 08/04/16 at 11:30 Sodium Chloride 160 meq/Sodium Acetate 60 meq/ Potassium Chloride 15 meq/ Potassium Acetate 30 meq/Magnesium Sulfate 25 meq/ Multivitamins/ Minerals 10 ml / Chromium/Copper/ Manganese/Seleni/ Zn 1 ml/Total Parenteral Nutrition/Amino Acids/Dextrose/ Fat Emulsion Intravenous 1,500 ml @ 62.5 mls/hr TPN CONT IV Last administered on 08/04/16 21:45; Start 08/04/16 at 22:00; Stop 08/06/16 at 08:48; Status DC Sodium Chloride 1,000 ml @ 1,000 mls/hr Q1H PRN IV hypotension; Start 08/04/16 at 12:00; Stop 08/04/16 at 17:59; Status DC Sodium Chloride (Iv Sodium Chloride 0.9% 1000ml Bag) 1,000 ml @ 400 mls/hr Q2H30M PRN IV PATENCY; Start 08/04/16 at 12:00; Stop 08/04/16 at 23:59; Status DC Info 1 each 1 each PRN DAILY PRN MC SEE COMMENTS; Start 08/04/16 at 16:30; Status UNV Levofloxacin/ Dextrose 100 ml @ 100 mls/hr 1X ONCE IV Last administered on 14:27; Start 08/05/16 at 14:00; Stop 08/05/16 at 14:59; Status DC Daptomycin/Sodium Chloride (Cubicin/Iv Sodium Chloride 0.9% 50ml) 50 ml @ 100 mls/hr 1X ONCE IV Last administered on 08/05/16 14:27; Start 08/05/16 at 14: 00; Stop 08/05/16 at 14:29; Status DC Heparin Sodium (Porcine) 10,000 unit STK-MED ONCE .ROUTE ; Start 08/05/16 at 09: 35; Stop 08/05/16 at 09:36; Status DC Lidocaine/Sodium Bicarbonate 20 ml 20 ml STK-MED ONCE IJ ; Start 08/05/16 at 09: 36; Stop 08/05/16 at 09:37; Status DC Heparin Sodium/ Sodium Chloride 500 ml @ As Directed STK-MED ONCE .ROUTE ; Start 08/05/16 at 09:36; Stop 08/05/16 at 09:37; Status DC Lidocaine/Sodium Bicarbonate (Buffered Lidocaine 1%) 2 ml 1X ONCE IJ Last administered on 08/05/16 10:04; Start 08/05/16 at 10:00; Stop 08/05/16 at 10:02 ; Status DC Heparin Sodium/ Sodium Chloride 60 unit 1X ONCE IV Last administered on 10:04; Start 08/05/16 at 10:00; Stop 08/05/16 at 10:02; Status DC Heparin Sodium (Porcine) 2,800 unit 1X ONCE INT CAT Last administered on 10:04; Start 08/05/16 at 10:00; Stop 08/05/16 at 10:02; Status DC Info (PHARMACY MONITORING -- do not chart) 1 each PRN DAILY PRN MC SEE COMMENTS ; Start 08/05/16 at 10:30; Stop 08/05/16 at 10:30; Status DC Info (PHARMACY MONITORING -- do not chart) 1 each PRN DAILY PRN MC SEE COMMENTS ; Start 08/05/16 at 10:30; Stop 08/05/16 at 10:30; Status DC Hydrocortisone Sodium Succinate 50 mg 50 mg BID IV Last administered on 20:54; Start 08/05/16 at 21:00 Sodium Chloride 160 meq/Sodium Acetate 60 meq/ Potassium Chloride 15 meq/ Potassium Acetate 30 meq/Magnesium Sulfate 25 meq/ Multivitamins/ Minerals 10 ml / Chromium/Copper/ Manganese/Seleni/ Zn 1 ml/Total Parenteral Nutrition/Amino Acids/Dextrose/ Fat Emulsion Intravenous 1,500 ml @ 62.5 mls/hr TPN CONT IV Last administered on 08/05/16 22:04; Start 08/05/16 at 22:00; Stop 08/06/16 at 21:59 Daptomycin 500 mg/ Sodium Chloride 50 ml @ 100 mls/hr Q24H IV ; Start 08/06/16 at 14:00 Sodium Chloride (Iv Sodium Chloride 0.9% 1000ml Bag) 1,000 ml @ 1,000 mls/hr Q1H PRN IV hypotension; Start 08/06/16 at 08:21; Stop 08/06/16 at 14:20 Diphenhydramine HCl (Benadryl) 25 mg 1X PRN PRN IV ITCHING; Start 08/06/16 at 08:30; Stop 08/07/16 at 08:29 Diphenhydramine HCl (Benadryl) 25 mg 1X PRN PRN IV ITCHING; Start 08/06/16 at 08:30; Stop 08/07/16 at 08:29 Sodium Chloride (Normal Saline Flush) 10 ml 1X PRN PRN IV AP catheter pack; Start 08/06/16 at 08:30; Stop 08/07/16 at 08:29 Sodium Chloride 10 ml 10 ml 1X PRN PRN IV BI[employer] catheter pack; Start 08/06/16 at 08:30; Stop 08/07/16 at 08:29 Sodium Chloride (Iv Sodium Chloride 0.9% 1000ml Bag) 1,000 ml @ 400 mls/hr Q2H30M PRN IV PATENCY; Start 08/06/16 at 08:21; Stop 08/06/16 at 20:20 Info 1 each 1 each PRN DAILY PRN MC SEE COMMENTS; Start 08/06/16 at 08:30; Status UNV Albumin Human (Albuminar) 200 ml @ 200 mls/hr 1X STAT IV Last administered on 08/06/16t 10:09; Start 08/06/16 at 09:52; Stop 08/06/16 at 10:51 Active Scripts Active Dilaudid (Hydromorphone Hcl) 4 Mg Tablet 4 Mg PO Q6HRS Phenazopyridine Hcl 200 Mg Tablet 200 Mg PO PRN TID PRN FENTANYL 50mcg/hr (Fentanyl) 1 Each Patch.td72 1 Patch TD Q3DAYS Anaspaz (Hyoscyamine Sulfate) 0.125 Mg Tab.rapdis 0.125 Mg PO Q6HRS PRN Cefpodoxime Proxetil 200 Mg Tablet 200 Mg PO BID Sertraline Hcl 50 Mg Tablet 100 Mg PO DAILY 30 Days Protonix (Pantoprazole Sodium) 40 Mg Tablet.dr 1 Tab PO DAILY Zinc Oxide 56.7 Gm Oint...g. 1 Sang TP BID Lidocaine 35.44 Gm Oint...g. 1 Sang TP BID Ondansetron Odt (Ondansetron) 4 Mg Tab.rapdis 8 Mg PO PRN Q8HRS PRN Gas-X (Simethicone) 80 Mg Tab.chew 80 Mg PO PRN QID PRN Reported Lorazepam 0.5 Mg Tablet 0.5 Mg PO PRN BID PRN Vitals/I & O Vital Sign - Last 24 Hours 08/05/16 08/05/16 08/05/16 08/05/16 11:00 12:00 12:00 12:00 Temp 98.0 98.0 Pulse 96 94 84 Resp 20 20 B/P 132/66 133/70 135/63 Pulse Ox 100 100 O2 Delivery Ventilator Ventilator Mechanical Ventilator 08/05/16 08/05/16 08/05/16 08/05/16 12:16 12:33 12:47 13:00 Temp 98.1 97.7 98.1 97.7 Pulse 92 95 92 Resp 30 27 24 B/P 127/64 129/68 128/66 Pulse Ox 100 100 O2 Delivery Ventilator Ventilator 08/05/16 08/05/16 08/05/16 08/05/16 14:00 15:00 15:07 15:49 Pulse 84 88 93 Resp 24 22 22 B/P 130/62 166/76 121/57 Pulse Ox 100 100 100 100 O2 Delivery Ventilator Ventilator Ventilator Ventilator 08/05/16 08/05/16 08/05/16 08/05/16 16:00 16:00 16:00 17:00 Pulse 89 84 87 Resp 22 B/P 128/59 133/84 129/59 Pulse Ox 100 O2 Delivery Mechanical Ventilator Ventilator 08/05/16 08/05/16 08/05/16 08/05/16 17:00 17:45 18:01 19:00 Temp 98.1 98.1 Pulse 93 88 86 Resp 24 20 20 B/P 133/62 134/62 122/57 Pulse Ox 100 100 100 100 O2 Delivery Ventilator Ventilator Ventilator Ventilator 08/05/16 08/05/16 08/05/16 08/05/16 19:54 20:00 20:00 20:00 Temp 97.9 97.9 Pulse 87 87 Resp 20 B/P 119/54 119/54 Pulse Ox 100 100 O2 Delivery Ventilator Ventilator Mechanical Ventilator 08/05/16 08/05/16 08/05/16 08/05/16 21:00 22:00 23:00 23:22 Pulse 90 88 87 Resp 20 20 20 B/P 122/54 158/77 119/64 Pulse Ox 100 100 100 100 O2 Delivery Ventilator Ventilator Ventilator Ventilator 08/06/16 08/06/16 08/06/16 08/06/16 00:00 00:00 01:00 01:51 Temp 97.8 97.8 Pulse 81 82 Resp 20 20 B/P 118/59 127/65 Pulse Ox 100 100 100 O2 Delivery Mechanical Ventilator Ventilator Ventilator Ventilator 08/06/16 08/06/16 08/06/16 08/06/16 02:00 03:00 03:47 04:00 Pulse 90 86 Resp 20 20 B/P 113/59 136/63 Pulse Ox 100 100 100 O2 Delivery Ventilator Ventilator Ventilator Mechanical Ventilator 08/06/16 08/06/16 08/06/16 08/06/16 04:00 05:00 05:34 06:00 Temp 97.8 97.8 Pulse 93 100 94 Resp 20 20 20 B/P 113/56 139/64 155/73 Pulse Ox 100 100 100 100 O2 Delivery Ventilator Ventilator Ventilator Ventilator 08/06/16 08/06/16 08/06/16 07:17 07:46 09:23 Pulse Ox 100 100 100 O2 Delivery Ventilator Ventilator Ventilator Intake and Output 08/05/16 08/05/16 08/06/16 15:00 23:00 07:00 Intake Total 197.25 ml 810 ml 955 ml Output Total 205 ml 645 ml 1395 ml Balance -7.75 ml 165 ml -440 ml BENITA LUTZ MD Aug 06, 2016 10:35
--- NOTE | 2016-08-06 10:42 | PDOC ---
PULMONARY PROGRESS NOTES Subjective ON AC MODE SEDATED OFF LEVO Vitals Vital Signs Date Time Temp Pulse Resp B/P Pulse Ox O2 Delivery O2 Flow Rate FiO2 08/06/16 09:23 100 Ventilator 08/06/16 06:00 94 20 155/73 08/06/16 04:00 97.8 97.8 General: Mild Distress HEENT: Other (nc at perrl, nose clear, orally intuvated. ) Lungs: Other (decrease bs) Cardiovascular: S1, S2 Abdomen: Soft, Non-tender, Other Skin: Warm Labs Laboratory Tests Test 08/04/16 11:03 08/04/16 17:49 08/05/16 00:00 08/05/16 05:30 Glucose (Fingerstick) 161mg/dL (70-99) 194mg/dL (70-99) 190mg/dL (70-99) White Blood Count 7.5x10^3/uL (4.0-11.0) Red Blood Count 3.02x10^6/uL (3.50-5.40) Hemoglobin 7.7g/dL (12.0-15.5) Hematocrit 23.8% (36.0-47.0) Mean Corpuscular Volume 79fL (79-100) Mean Corpuscular Hemoglobin 26pg (25-35) Mean Corpuscular Hemoglobin Concent 32g/dL (31-37) Red Cell Distribution Width 20.2% (11.5-14.5) Platelet Count 46x10^3/uL (140-400) Neutrophils (%) (Auto) 83% (31-73) Lymphocytes (%) (Auto) 10% (24-48) Monocytes (%) (Auto) 7% (0-9) Eosinophils (%) (Auto) 0% (0-3) Basophils (%) (Auto) 0% (0-3) Neutrophils # (Auto) 6.3x10^3uL (1.8-7.7) Lymphocytes # (Auto) 0.8x10^3/uL (1.0-4.8) Monocytes # (Auto) 0.5x10^3/uL (0.0-1.1) Eosinophils # (Auto) 0.0x10^3/uL (0.0-0.7) Basophils # (Auto) 0.0x10^3/uL (0.0-0.2) Prothrombin Time 36.0SEC (11.7-14.0) Prothromb Time International Ratio 3.9 (0.8-1.1) Fibrinogen < 60mg/dL (200-440) Sodium Level 143mmol/L (136-145) Potassium Level 3.5mmol/L (3.5-5.1) Chloride Level 108mmol/L (98-107) Carbon Dioxide Level 25mmol/L (21-32) Anion Gap 10 (6-14) Blood Urea Nitrogen 79mg/dL (7-20) Creatinine 1.8mg/dL (0.6-1.0) Estimated GFR (Cockcroft-Gault) 34.6 Glucose Level 210mg/dL (70-99) Lactic Acid Level 2.1mmol/L (0.4-2.0) Calcium Level 8.5mg/dL (8.5-10.1) Phosphorus Level 5.1mg/dL (2.6-4.7) Magnesium Level 3.1mg/dL (1.8-2.4) Test 08/05/16 05:32 08/05/16 08:00 08/05/16 13:15 08/05/16 13:17 Glucose (Fingerstick) 186mg/dL (70-99) 133mg/dL (70-99) O2 Saturation 99% (92-99) Arterial Blood pH 7.47 (7.35-7.45) Arterial Blood pCO2 at Patient Temp 32mmHg (35-46) Arterial Blood pO2 at Patient Temp 199mmHg (65-108) Arterial Blood HCO3 23mmol/L (21-28) Arterial Blood Base Excess -1mmol/L (-3-3) FiO2 40 Prothrombin Time 16.1SEC (11.7-14.0) Prothromb Time International Ratio 1.4 (0.8-1.1) Fibrinogen 102mg/dL (200-440) Test 08/05/16 23:50 08/06/16 05:23 08/06/16 05:25 08/06/16 08:00 Glucose (Fingerstick) 153mg/dL (70-99) 175mg/dL (70-99) White Blood Count 8.2x10^3/uL (4.0-11.0) Red Blood Count 3.24x10^6/uL (3.50-5.40) Hemoglobin 8.2g/dL (12.0-15.5) Hematocrit 25.1% (36.0-47.0) Mean Corpuscular Volume 78fL (79-100) Mean Corpuscular Hemoglobin 25pg (25-35) Mean Corpuscular Hemoglobin Concent 33g/dL (31-37) Red Cell Distribution Width 20.4% (11.5-14.5) Platelet Count 49x10^3/uL (140-400) Neutrophils (%) (Auto) 81% (31-73) Lymphocytes (%) (Auto) 12% (24-48) Monocytes (%) (Auto) 7% (0-9) Eosinophils (%) (Auto) 0% (0-3) Basophils (%) (Auto) 0% (0-3) Neutrophils # (Auto) 6.6x10^3uL (1.8-7.7) Lymphocytes # (Auto) 1.0x10^3/uL (1.0-4.8) Monocytes # (Auto) 0.6x10^3/uL (0.0-1.1) Eosinophils # (Auto) 0.0x10^3/uL (0.0-0.7) Basophils # (Auto) 0.0x10^3/uL (0.0-0.2) Fibrinogen 68mg/dL (200-440) Sodium Level 145mmol/L (136-145) Potassium Level 3.1mmol/L (3.5-5.1) Chloride Level 105mmol/L (98-107) Carbon Dioxide Level 27mmol/L (21-32) Anion Gap 13 (6-14) Blood Urea Nitrogen 72mg/dL (7-20) Creatinine 1.4mg/dL (0.6-1.0) Estimated GFR (Cockcroft-Gault) 46.3 Glucose Level 177mg/dL (70-99) Lactic Acid Level 2.0mmol/L (0.4-2.0) Calcium Level 8.9mg/dL (8.5-10.1) Phosphorus Level 4.8mg/dL (2.6-4.7) Magnesium Level 2.6mg/dL (1.8-2.4) O2 Saturation 99% (92-99) Arterial Blood pH 7.51 (7.35-7.45) Arterial Blood pCO2 at Patient Temp 30mmHg (35-46) Arterial Blood pO2 at Patient Temp 208mmHg (65-108) Arterial Blood HCO3 24mmol/L (21-28) Arterial Blood Base Excess 1mmol/L (-3-3) FiO2 40% Laboratory Tests Test 08/05/16 13:15 08/05/16 13:17 08/05/16 23:50 08/06/16 05:23 Prothrombin Time 16.1SEC (11.7-14.0) Prothromb Time International Ratio 1.4 (0.8-1.1) Fibrinogen 102mg/dL (200-440) Glucose (Fingerstick) 133mg/dL (70-99) 153mg/dL (70-99) 175mg/dL (70-99) Test 08/06/16 05:25 08/06/16 08:00 White Blood Count 8.2x10^3/uL (4.0-11.0) Red Blood Count 3.24x10^6/uL (3.50-5.40) Hemoglobin 8.2g/dL (12.0-15.5) Hematocrit 25.1% (36.0-47.0) Mean Corpuscular Volume 78fL (79-100) Mean Corpuscular Hemoglobin 25pg (25-35) Mean Corpuscular Hemoglobin Concent 33g/dL (31-37) Red Cell Distribution Width 20.4% (11.5-14.5) Platelet Count 49x10^3/uL (140-400) Neutrophils (%) (Auto) 81% (31-73) Lymphocytes (%) (Auto) 12% (24-48) Monocytes (%) (Auto) 7% (0-9) Eosinophils (%) (Auto) 0% (0-3) Basophils (%) (Auto) 0% (0-3) Neutrophils # (Auto) 6.6x10^3uL (1.8-7.7) Lymphocytes # (Auto) 1.0x10^3/uL (1.0-4.8) Monocytes # (Auto) 0.6x10^3/uL (0.0-1.1) Eosinophils # (Auto) 0.0x10^3/uL (0.0-0.7) Basophils # (Auto) 0.0x10^3/uL (0.0-0.2) Fibrinogen 68mg/dL (200-440) Sodium Level 145mmol/L (136-145) Potassium Level 3.1mmol/L (3.5-5.1) Chloride Level 105mmol/L (98-107) Carbon Dioxide Level 27mmol/L (21-32) Anion Gap 13 (6-14) Blood Urea Nitrogen 72mg/dL (7-20) Creatinine 1.4mg/dL (0.6-1.0) Estimated GFR (Cockcroft-Gault) 46.3 Glucose Level 177mg/dL (70-99) Lactic Acid Level 2.0mmol/L (0.4-2.0) Calcium Level 8.9mg/dL (8.5-10.1) Phosphorus Level 4.8mg/dL (2.6-4.7) Magnesium Level 2.6mg/dL (1.8-2.4) O2 Saturation 99% (92-99) Arterial Blood pH 7.51 (7.35-7.45) Arterial Blood pCO2 at Patient Temp 30mmHg (35-46) Arterial Blood pO2 at Patient Temp 208mmHg (65-108) Arterial Blood HCO3 24mmol/L (21-28) Arterial Blood Base Excess 1mmol/L (-3-3) FiO2 40% Medications Active Scripts Medications Dose Route/Sig Days Date Category Dilaudid (Hydromorphone Hcl) 4 Mg Tablet 4 Mg PO Q6HRS 06/29/16 Rx Phenazopyridine Hcl 200 Mg Tablet 200 Mg PO PRN TID PRN 06/29/16 Rx FENTANYL 50mcg/hr (Fentanyl) 1 Each Patch.td72 1 Patch TD Q3DAYS 06/29/16 Rx Anaspaz (Hyoscyamine Sulfate) 0.125 Mg Tab.rapdis 0.125 Mg PO Q6HRS PRN 06/29/16 Rx Cefpodoxime Proxetil 200 Mg Tablet 200 Mg PO BID 06/29/16 Rx Sertraline Hcl 50 Mg Tablet 100 Mg PO DAILY 30 05/12/16 Rx Protonix (Pantoprazole Sodium) 40 Mg Tablet.dr 1 Tab PO DAILY 12/27/15 Rx Zinc Oxide 56.7 Gm Oint...g. 1 Sang TP BID 12/18/15 Rx Lidocaine 35.44 Gm Oint...g. 1 Sang TP BID 12/18/15 Rx Ondansetron Odt (Ondansetron) 4 Mg Tab.rapdis 8 Mg PO PRN Q8HRS PRN 07/03/15 Rx Gas-X (Simethicone) 80 Mg Tab.chew 80 Mg PO PRN QID PRN 09/30/14 Rx Lorazepam 0.5 Mg Tablet 0.5 Mg PO PRN BID PRN 11/08/13 Reported Comments CXR 08/06 RESOLVED CHF Impression . 1. Acute respiratory failure, multifactorial. 2. Septic shock. off pressors 3. Bilateral pulmonary infiltrates compatible with pulmonary edema, ? pneumonia. resolved 4. Fungemia. 5. Chronic enterocutaneous fistula. 6. Metabolic toxic encephalopathy. 7. Acute renal failure. 8. Bxiwjgia-[id number]-byfhzs protein malnutrition, present upon admission. 9. Metabolic acidosis. 10.Thrombocytopenia, sepsis induced Plan . AC mode, pain control off sedation/ mild narcotics CPAP trial post HD abx per ID solucortef, with taper bronchodilator monitor Plt cont abx, antifungal protonix, scds for prophylaxis off pressors d/w RN/RT ROSAMARIA GUNDERSON MD Aug 06, 2016 10:42
[2016-08-06 10:48] LABS: ANISOCYTOSIS MOD; PLT ESTIMATE DECREASED (ADEQUATE)
[2016-08-06 10:49] LABS: HYPOCHROMIA SLIGHT
[2016-08-06] MEDS: TPN PER PHARMACY MC PRN (12:13)
[2016-08-06] MEDS: PANTOPRAZOLE IV PUSH 40 MG VIAL. IVP SCH (13:49)
[2016-08-06] MEDS: HYDROCORTISONE SOD SUCC/PF 100 MG/2 ML VIAL. IV SCH ×2 (13:49→20:46)
[2016-08-06] MEDS: ZINC OXIDE 20% TOPICAL OINTMENT 28GM TUBE. TP SCH ×2 (13:50→20:47)
[2016-08-06] MEDS: LIDOCAINE 5% TOPICAL OINTMENT 35GM TUBE. TP SCH ×2 (13:50→20:47)
[2016-08-06] MEDS: NORMAL SALINE IV SCH ×3 (13:52→20:46)
[2016-08-06] MEDS: TIGECYCLINE IV SCH ×2 (13:52→20:46)
[2016-08-06] MEDS: DAPTOMYCIN IV SCH (14:09)
[2016-08-06] MEDS: FUROSEMIDE INJ 100 MG in IV NORMAL SALINE 100ML 100 ML IV PRN (14:15)
--- NOTE | 2016-08-06 20:30 | PDOC ---
Provider Note Provider Note Covering for Dr. Jasmine. She is intubated. Awake with minimal sedation.. Heart rate 100 bpm and blood pressure 120/80. Lungs are clear. She has a bleeding disorder. Arterial and venous lines in the groin were able to be removed with no significant bleeding. SAMMIE CHRISTENSEN MD Aug 06, 2016 20:30
[2016-08-06] MEDS ORDERED: AMINO ACID IV SCH ×10 (22:00)
[2016-08-06] MEDS ORDERED: TOTAL PARENTERAL NUTRITION IV SCH ×10 (22:00)
[2016-08-06] MEDS ORDERED: [UNRECOGNIZED DRUG - OTHER] IV SCH ×10 (22:00)
[2016-08-06] MEDS ORDERED: DEXTROSE 70% IV SCH ×10 (22:00)
[2016-08-07] VITALS (24 sets, daily range): BP systolic 92–157; BP diastolic 59–76
[2016-08-07] MEDS: MICAFUNGIN 100 MG in IV DEXTROSE 5% 100 ML IV SCH (00:40)
[2016-08-07] MEDS: INSULIN ASPART 300 UNITS/3 ML INSULN.PEN SQ SCH ×3 (06:00→18:14)
[2016-08-07] MEDS: FENTANYL STANDARD PCA 30 ML IV PRN ×3 (06:29→21:43)
[2016-08-07 06:40] LABS: CALCIUM 9.1 mg/dL (8.5-10.1); CREATININE 1.2 mg/dL (0.6-1.0); GFR 55.3
--- NOTE | 2016-08-07 06:44 | PDOC ---
Infectious Disease Note Subjective Subjective More alert Intubated. No fever TPN ROS ROS Vital Sign Vital Signs Vital Signs Date Time Temp Pulse Resp B/P Pulse Ox O2 Delivery O2 Flow Rate FiO2 08/07/16 06:00 60 20 136/60 100 Ventilator 08/07/16 04:00 97.4 97.4 Physical Exam PHYSICAL EXAM GENERAL: Intubated. Eyes open and more alert. looks tired HEENT: Pupils constricted. ETT. OGT LUNGS: Clear HEART: S1S2, no gallop, no murmur. Distal DP palpable ABD: Soft, BS present, + fistula : [place] EXT: Generalized edema. - improved [employer]: Awake SKIN: No rash RIJ HD and central access - less oozing. RUE peripheral. Old groin sites clean Labs Lab Laboratory Tests Test 08/06/16 08:00 08/06/16 14:04 08/06/16 23:35 08/07/16 06:07 O2 Saturation 99% (92-99) Arterial Blood pH 7.51 (7.35-7.45) Arterial Blood pCO2 at Patient Temp 30mmHg (35-46) Arterial Blood pO2 at Patient Temp 208mmHg (65-108) Arterial Blood HCO3 24mmol/L (21-28) Arterial Blood Base Excess 1mmol/L (-3-3) FiO2 40% Glucose (Fingerstick) 148mg/dL (70-99) 201mg/dL (70-99) 140mg/dL (70-99) Micro BLOOD CULTURE Preliminary NO GROWTH AFTER 2 DAYS Enterobacter aerogenes 50,000-100,000 colony forming units per mL URINE CULTURE RES 2 Final Enterococcus faecium 50,000-100,000 colony forming units per mL ANTIMICROBIAL SUSCEPTIBILITY Final Comment S = Susceptible; I = Intermediate; R = Resistant P = Positive; N = Negative MICS are expressed in micrograms per mL Antibiotic RSLT#1 RSLT#2 RSLT#3 RSLT#4 Amoxicillin/Clavulanic Acid R Cefazolin R Cefepime R Ceftriaxone R Cefuroxime R Cephalothin R Ciprofloxacin R R Gentamicin S Imipenem R Levofloxacin R R Nitrofurantoin R I Penicillin R Piperacillin R Tetracycline R R Tobramycin S Trimethoprim/Sulfa S Vancomycin S Objective Assessment C Gl[place] sepsis - 07/27 - line removed and positive 07/29. OFF Levophed ? DIC with elevated INR - platelets - stable today Acute resp failure - intubated -some infiltrates on hydrocortisone JULIO C - getting HD for fluid removal Fever and chills- better Acute Anemia - s/p PRBCs Urine Enterobacter and Amp res Enterococcus 07/15 EC fistula Enterovesicular fistula Abdominal excoriation MDR Enterobacter and enterococcus faecium in urine Plan Plan of Care continue micafungin, Wean Tygacil soon (07/31) Repeat Blood cults 08/01 NGTD Cont Daptomycin Will need ECHO Will need Optho eval Monitor labs this am and in am Critically ill ABBY MOTT MD Aug 07, 2016 06:44
[2016-08-07 06:47] LABS: POTASSIUM 2.8 mmol/L (3.5-5.1)
[2016-08-07 06:49] LABS: INR 1.5 (0.8-1.1); PROTHROMBIN TIME PATIENT 17.3 SEC (11.7-14.0)
[2016-08-07 06:54] LABS: BASO % 0 % (0-3); EOS % 0 % (0-3); HEMATOCRIT 22.3 % (36.0-47.0); HEMOGLOBIN 7.3 g/dL (12.0-15.5); LYMPH # 0.9 x10^3/uL (1.0-4.8); LYMPH % 13 % (24-48); MEAN CORPUSCULAR HEMOGLOBIN 25 pg (25-35); MEAN CORPUSCULAR HGB CONC 33 g/dL (31-37); MEAN CORPUSCULAR VOLUME 77 fL (79-100); MONO % 6 % (0-9); NEUT % 81 % (31-73); PLATELET COUNT 40 x10^3/uL (140-400); RED BLOOD COUNT 2.88 x10^6/uL (3.50-5.40); WHITE BLOOD COUNT 6.5 x10^3/uL (4.0-11.0)
[2016-08-07 07:39] LABS: ALBUMIN 3.2 g/dL (3.4-5.0); DIRECT BILIRUBIN 2.9 mg/dL (0.0-0.2); TOTAL BILIRUBIN 5.5 mg/dL (0.2-1.0); TOTAL PROTEIN 6.3 g/dL (6.4-8.2)
[2016-08-07] MEDS: PANTOPRAZOLE IV PUSH 40 MG VIAL. IVP SCH (07:49)
[2016-08-07] MEDS: HYDROCORTISONE SOD SUCC/PF 100 MG/2 ML VIAL. IV SCH (07:49)
[2016-08-07] MEDS: ZINC OXIDE 20% TOPICAL OINTMENT 28GM TUBE. TP SCH ×2 (07:50→21:41)
[2016-08-07] MEDS: LIDOCAINE 5% TOPICAL OINTMENT 35GM TUBE. TP SCH ×2 (07:50→21:41)
[2016-08-07] MEDS: TIGECYCLINE IV SCH ×2 (07:50→21:42)
[2016-08-07] MEDS: NORMAL SALINE IV SCH ×3 (07:50→21:42)
--- NOTE | 2016-08-07 07:53 | RAD ---
EXAM: Chest one view. HISTORY: Acute respiratory failure. COMPARISON: 08/06/2016. FINDINGS: A frontal view of the chest is obtained. An endotracheal tube has its tip 4 cm above the deborah. A nasogastric tube has its tip below the inferior margin of the field of view. A right internal jugular hemodialysis catheter has its tip in the right atrium. There are no confluent infiltrates. There is no pneumothorax or pleural effusion. The heart is not enlarged. There are atherosclerotic calcifications of the aorta. IMPRESSION: 1. No confluent infiltrates.
[2016-08-07] MEDS: POTASSIUM CHLORIDE 20MEQ 50 ML IV SCH ×2 (08:09→10:46)
[2016-08-07] MEDS: IPRATRPIUM/ALBUTEROL 0.5/2.5MG 3 ML NEBU. NEB SCH ×4 (08:18→19:36)
--- NOTE | 2016-08-07 09:23 | PDOC ---
PROGRESS NOTES Subjective Subjective c/c - f/u of DIC - Thrombocytopenia Objective Objective Vital Signs Date Time Temp Pulse Resp B/P Pulse Ox O2 Delivery O2 Flow Rate FiO2 08/07/16 06:00 60 20 136/60 100 Ventilator 08/07/16 04:00 97.4 97.4 08/04/16 03:55 50.0 Intake and Output 08/07/16 07:00 Intake Total 1262 ml Output Total 1956 ml Balance -694 ml IV Total 1028 ml Blood Product IV Normal Saline Flush 234 ml Output Urine Total 1506 ml Other 450 ml Physical Exam Heart: Normal S1, Normal S2 Lungs: Clear to auscultation Assessment Assessment Problems Medical Problems: (1) Abdominal pain Status: Acute (2) Enterocutaneous fistula Status: Acute (3) Sepsis Status: Acute (4) Urinary tract infection Status: Acute (5) UTI (urinary tract infection) Status: Acute IMPRESSION AND PLAN: 1. DIC - Thrombocytopenia secondary to sepsis. In addition, there is evidence of elevated PT, PTT and decreased fibrinogen which is suggestive of disseminated intravascular coagulation. s/p cryoprecipitate infusion 08/05 and .Fibrinogen level improved to 121. No bleeding. 2. Anemia secondary to sepsis,disseminated intravascular coagulation, hemoglobin 8.2. Continue to monitor. 3. Sepsis, Judi glabrata positive. Appreciate ID management. 4. 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 5. Respiratory failure. She is on mechanical ventilation. Comment Review of Relevant I have reviewed the following items lucila (where applicable) has been applied. Labs Laboratory Tests Test 08/05/16 13:15 08/05/16 13:17 08/05/16 23:50 08/06/16 05:23 Prothrombin Time 16.1SEC (11.7-14.0) Prothromb Time International Ratio 1.4 (0.8-1.1) Fibrinogen 102mg/dL (200-440) Glucose (Fingerstick) 133mg/dL (70-99) 153mg/dL (70-99) 175mg/dL (70-99) Test 08/06/16 05:25 08/06/16 08:00 08/06/16 14:04 08/06/16 23:35 White Blood Count 8.2x10^3/uL (4.0-11.0) Red Blood Count 3.24x10^6/uL (3.50-5.40) Hemoglobin 8.2g/dL (12.0-15.5) Hematocrit 25.1% (36.0-47.0) Mean Corpuscular Volume 78fL (79-100) Mean Corpuscular Hemoglobin 25pg (25-35) Mean Corpuscular Hemoglobin Concent 33g/dL (31-37) Red Cell Distribution Width 20.4% (11.5-14.5) Platelet Count 49x10^3/uL (140-400) Neutrophils (%) (Auto) 81% (31-73) Lymphocytes (%) (Auto) 12% (24-48) Monocytes (%) (Auto) 7% (0-9) Eosinophils (%) (Auto) 0% (0-3) Basophils (%) (Auto) 0% (0-3) Neutrophils # (Auto) 6.6x10^3uL (1.8-7.7) Lymphocytes # (Auto) 1.0x10^3/uL (1.0-4.8) Monocytes # (Auto) 0.6x10^3/uL (0.0-1.1) Eosinophils # (Auto) 0.0x10^3/uL (0.0-0.7) Basophils # (Auto) 0.0x10^3/uL (0.0-0.2) Platelet Estimate Decreased (ADEQUATE) Hypochromasia Slight Anisocytosis Mod Fibrinogen 68mg/dL (200-440) Sodium Level 145mmol/L (136-145) Potassium Level 3.1mmol/L (3.5-5.1) Chloride Level 105mmol/L (98-107) Carbon Dioxide Level 27mmol/L (21-32) Anion Gap 13 (6-14) Blood Urea Nitrogen 72mg/dL (7-20) Creatinine 1.4mg/dL (0.6-1.0) Estimated GFR (Cockcroft-Gault) 46.3 Glucose Level 177mg/dL (70-99) Lactic Acid Level 2.0mmol/L (0.4-2.0) Calcium Level 8.9mg/dL (8.5-10.1) Phosphorus Level 4.8mg/dL (2.6-4.7) Magnesium Level 2.6mg/dL (1.8-2.4) O2 Saturation 99% (92-99) Arterial Blood pH 7.51 (7.35-7.45) Arterial Blood pCO2 at Patient Temp 30mmHg (35-46) Arterial Blood pO2 at Patient Temp 208mmHg (65-108) Arterial Blood HCO3 24mmol/L (21-28) Arterial Blood Base Excess 1mmol/L (-3-3) FiO2 40% Glucose (Fingerstick) 148mg/dL (70-99) 201mg/dL (70-99) Test 08/07/16 06:07 08/07/16 06:10 Glucose (Fingerstick) 140mg/dL (70-99) White Blood Count 6.5x10^3/uL (4.0-11.0) Red Blood Count 2.88x10^6/uL (3.50-5.40) Hemoglobin 7.3g/dL (12.0-15.5) Hematocrit 22.3% (36.0-47.0) Mean Corpuscular Volume 77fL (79-100) Mean Corpuscular Hemoglobin 25pg (25-35) Mean Corpuscular Hemoglobin Concent 33g/dL (31-37) Red Cell Distribution Width 20.0% (11.5-14.5) Platelet Count 40x10^3/uL (140-400) Neutrophils (%) (Auto) 81% (31-73) Lymphocytes (%) (Auto) 13% (24-48) Monocytes (%) (Auto) 6% (0-9) Eosinophils (%) (Auto) 0% (0-3) Basophils (%) (Auto) 0% (0-3) Neutrophils # (Auto) 5.2x10^3uL (1.8-7.7) Lymphocytes # (Auto) 0.9x10^3/uL (1.0-4.8) Monocytes # (Auto) 0.4x10^3/uL (0.0-1.1) Eosinophils # (Auto) 0.0x10^3/uL (0.0-0.7) Basophils # (Auto) 0.0x10^3/uL (0.0-0.2) Prothrombin Time 17.3SEC (11.7-14.0) Prothromb Time International Ratio 1.5 (0.8-1.1) Fibrinogen 121mg/dL (200-440) Sodium Level 145mmol/L (136-145) Potassium Level 2.8mmol/L (3.5-5.1) Chloride Level 104mmol/L (98-107) Carbon Dioxide Level 31mmol/L (21-32) Anion Gap 10 (6-14) Blood Urea Nitrogen 72mg/dL (7-20) Creatinine 1.2mg/dL (0.6-1.0) Estimated GFR (Cockcroft-Gault) 55.3 Glucose Level 149mg/dL (70-99) Lactic Acid Level 1.5mmol/L (0.4-2.0) Calcium Level 9.1mg/dL (8.5-10.1) Total Bilirubin 5.5mg/dL (0.2-1.0) Direct Bilirubin 2.9mg/dL (0.0-0.2) Aspartate Amino Transf (AST/SGOT) 37U/L (15-37) Alanine Aminotransferase (ALT/SGPT) 44U/L (14-59) Alkaline Phosphatase 155U/L (46-116) Total Protein 6.3g/dL (6.4-8.2) Albumin 3.2g/dL (3.4-5.0) Laboratory Tests Test 08/06/16 14:04 08/06/16 23:35 08/07/16 06:07 08/07/16 06:10 Glucose (Fingerstick) 148mg/dL (70-99) 201mg/dL (70-99) 140mg/dL (70-99) White Blood Count 6.5x10^3/uL (4.0-11.0) Red Blood Count 2.88x10^6/uL (3.50-5.40) Hemoglobin 7.3g/dL (12.0-15.5) Hematocrit 22.3% (36.0-47.0) Mean Corpuscular Volume 77fL (79-100) Mean Corpuscular Hemoglobin 25pg (25-35) Mean Corpuscular Hemoglobin Concent 33g/dL (31-37) Red Cell Distribution Width 20.0% (11.5-14.5) Platelet Count 40x10^3/uL (140-400) Neutrophils (%) (Auto) 81% (31-73) Lymphocytes (%) (Auto) 13% (24-48) Monocytes (%) (Auto) 6% (0-9) Eosinophils (%) (Auto) 0% (0-3) Basophils (%) (Auto) 0% (0-3) Neutrophils # (Auto) 5.2x10^3uL (1.8-7.7) Lymphocytes # (Auto) 0.9x10^3/uL (1.0-4.8) Monocytes # (Auto) 0.4x10^3/uL (0.0-1.1) Eosinophils # (Auto) 0.0x10^3/uL (0.0-0.7) Basophils # (Auto) 0.0x10^3/uL (0.0-0.2) Prothrombin Time 17.3SEC (11.7-14.0) Prothromb Time International Ratio 1.5 (0.8-1.1) Fibrinogen 121mg/dL (200-440) Sodium Level 145mmol/L (136-145) Potassium Level 2.8mmol/L (3.5-5.1) Chloride Level 104mmol/L (98-107) Carbon Dioxide Level 31mmol/L (21-32) Anion Gap 10 (6-14) Blood Urea Nitrogen 72mg/dL (7-20) Creatinine 1.2mg/dL (0.6-1.0) Estimated GFR (Cockcroft-Gault) 55.3 Glucose Level 149mg/dL (70-99) Lactic Acid Level 1.5mmol/L (0.4-2.0) Calcium Level 9.1mg/dL (8.5-10.1) Total Bilirubin 5.5mg/dL (0.2-1.0) Direct Bilirubin 2.9mg/dL (0.0-0.2) Aspartate Amino Transf (AST/SGOT) 37U/L (15-37) Alanine Aminotransferase (ALT/SGPT) 44U/L (14-59) Alkaline Phosphatase 155U/L (46-116) Total Protein 6.3g/dL (6.4-8.2) Albumin 3.2g/dL (3.4-5.0) Microbiology 08/01/16 Blood Culture - Final, Complete NO GROWTH AFTER 5 DAYS 07/15/16 Urine Culture - Final, Complete 07/15/16 Urine Culture Result 1 (ROYA) - Final, Complete 07/15/16 Urine Culture Result 2 (ROYA) - Final, Complete 07/15/16 Antimicrobic Susceptibility - Final, Complete 07/29/16 Aerobic Culture - Final, Complete 07/29/16 Aerobic Culture Result 1 (ROYA) - Final, Complete Medications Current Medications Piperacillin Sod/ Tazobactam Sod/ Sodium Chloride (Zosyn/Iv Sodium Chloride 0.9 % 100ml) 100 ml @ 200 mls/hr 1X ONCE IV Last administered on 07/15/16 22:56; Start 07/15/16 at 22:00; Stop 07/15/16 at 22:29; Status DC Fentanyl Citrate 50 mcg 50 mcg PRN Q15MIN PRN IV PAIN GREATER THAN 3/10 Last administered on 07/16/16 00:30; Start 07/15/16 at 21:45; Stop 07/16/16 at 02:00; Status DC Sodium Chloride 1,000 ml @ 1,000 mls/hr 1X ONCE IV Last administered on 21:59; Start 07/15/16 at 22:00; Stop 07/15/16 at 22:59; Status DC Sodium Chloride (Iv Sodium Chloride 0.9% 500ml Bag) 500 ml @ 500 mls/hr 1X ONCE IV Last administered on 07/15/16 22:00; Start 07/15/16 at 22:00; Stop at 22:59; Status DC Ondansetron HCl (Zofran) 4 mg PRN Q8HRS PRN IV NAUSEA/VOMITING; Start 07/15/16 at 23:30; Stop 07/16/16 at 08:52; Status DC Fentanyl Citrate 50 mcg 50 mcg PRN Q2HR PRN IV SEVERE PAIN Last administered on 07/16/16 08:10; Start 07/15/16 at 23:30; Stop 07/16/16 at 08:52; Status DC Sodium Chloride (Iv Sodium Chloride 0.9% 1000ml Bag) 1,000 ml @ 150 mls/hr Q6H40M IV Last administered on 07/15/16 02:00; Start 07/15/16 at 23:45; Stop 07/16/16 at 08:52; Status DC Acetaminophen (Tylenol) 650 mg PRN Q4HRS PRN PO FEVER; Start 07/15/16 at 23:30; Stop 07/16/16 at 23:29; Status DC Info (Do NOT chart on this placeholder) 1 each PRN DAILY PRN MC NEEDS VERIFICATION; Start 07/16/16 at 03:00; Status Cancel Acetaminophen 650 mg 650 mg PRN Q4HRS PRN PO MILD PAIN / TEMP Last administered on 07/28/16 07:42; Start 07/16/16 at 08:45; Stop 07/29/16 at 08:33 ; Status DC Piperacillin Sod/ Tazobactam Sod 3.375 gm/Sodium Chloride 50 ml @ 100 mls/hr Q6HRS IV Last administered on 07/18/16 05:50; Start 07/16/16 at 10:00; Stop 07/18 at 13:28; Status DC Linezolid (Zyvox Premix) 300 ml @ 300 mls/hr Q12HR IV Last administered on 07/18 08:34; Start 07/16/16 at 10:00; Stop 07/18/16 at 13:28; Status DC Hydromorphone HCl (Dilaudid) 2 mg PRN Q4HRS PRN IV MODERATE PAIN Last administered on 07/28/16 23:33; Start 07/16/16 at 08:45 Hydromorphone HCl (Dilaudid) 4 mg PRN Q4HRS PRN IV SEVERE PAIN Last administered on 07/30/16 09:23; Start 07/16/16 at 08:45; Stop 07/31/16 at 15:01 ; Status DC Pantoprazole Sodium (Protonix) 40 mg DAILYAC PO Last administered on 07/27/16 11:11; Start 07/16/16 at 09:30; Stop 07/29/16 at 08:44; Status DC Hyoscyamine (Anaspaz) 0.125 mg Q6HRS PO Last administered on 07/20/16 05:20; Start 07/16/16 at 12:00; Stop 07/20/16 at 08:58; Status DC Phenazopyridine HCl (Pyridium) 200 mg TID PO Last administered on 07/20/16 08: 25; Start 07/16/16 at 09:30; Stop 07/20/16 at 08:58; Status DC Lorazepam (Ativan) 0.5 mg PRN BID PRN PO ANXIETY / AGITATION Last administered on 07/29/16 02:16; Start 07/16/16 at 08:45; Stop 07/31/16 at 15:01; Status DC Simethicone (Gas-X) 80 mg PRN Q4HRS PRN PO GAS / BLOATING Last administered on 07/24/16 22:30; Start 07/16/16 at 08:45; Stop 07/31/16 at 15:01; Status DC Zolpidem Tartrate 5 mg 5 mg PRN QHS PRN PO INSOMNIA Last administered on 23:14; Start 07/16/16 at 08:45; Stop 07/31/16 at 15:01; Status DC Potassium Chloride/Dextrose/ Sod Cl 1,000 ml @ 80 mls/hr [id number] IV Last administered on 07/16/16 10:54; Start 07/16/16 at 09:30; Stop 07/16/16 at 21:59; Status DC Fluconazole/ Sodium Chloride (Diflucan 200mg/ 100ml Premix) 100 ml @ 100 mls/ hr Q24H IV Last administered on 07/18/16 11:43; Start 07/16/16 at 11:00; Stop at 13:28; Status DC Info 1 each 1 each PRN DAILY PRN MC SEE COMMENTS Last administered on 12:41; Start 07/16/16 at 10:00; Stop 08/01/16 at 11:24; Status DC Sodium Chloride 220 meq/Sodium Acetate 90 meq/ Potassium Chloride 50 meq/ Potassium Acetate 15 meq/Potassium Phosphate 10 mmol/ Magnesium Sulfate 50 meq/ Calcium Gluconate 6 meq/ Multivitamins/ Minerals 10 ml/ Chromium/Copper/ Manganese/Seleni/ Zn 1 ml/Total Parenteral Nutrition/Amino Acids/Dextro... 1, 920 ml @ 80 mls/hr TPN CONT IV ; Start 07/16/16 at 22:00; Stop 07/16/16 at 22:00 ; Status DC Sodium Chloride/ Sodium Acetate/ Potassium Chloride/ Potassium Acetate/ Potassium Phosphate/ Magnesium Sulfate/ Calcium Gluconate/ Multivitamins/ Minerals/Chromium/ Copper/Manganese/ Seleni/Zn/Total Parenteral Nutrition/Amino Acids/Dextrose/ Fat Emulsion Intravenous (Sodium Chlori... 1,820 ml @ 75.833 mls/ hr TPN CONT IV Last administered on 07/16/16 21:03; Start 07/16/16 at 22: 00; Stop 07/17/16 at 21:59; Status DC Ondansetron HCl (Zofran) 4 mg PRN Q6HRS PRN IV NAUSEA/VOMITING Last administered on 07/21/16 08:48; Start 07/16/16 at 17:15; Stop 07/31/16 at 15:01; Status DC Diphenhydramine HCl (Benadryl) 25 mg PRN Q6HRS PRN PO ITCHING Last administered on 07/25/16 23:38; Start 07/16/16 at 17:45; Stop 07/31/16 at 15:01 ; Status DC Lidocaine (Xylocaine) 1 sang BID TP Last administered on 08/07/16 07:50; Start 07/17/16 at 09:00 Zinc Oxide 1 sang 1 sang BID TP Last administered on 08/07/16 07:50; Start at 09:30 Sodium Chloride/ Sodium Acetate/ Potassium Chloride/ Potassium Acetate/ Potassium Phosphate/ Magnesium Sulfate/ Calcium Gluconate/ Multivitamins/ Minerals/Chromium/ Copper/Manganese/ Seleni/Zn/Total Parenteral Nutrition/Amino Acids/Dextrose/ Fat Emulsion Intravenous (Sodium Chlori... 1,920 ml @ 80 mls/ hr TPN CONT IV Last administered on 07/17/16 22:13; Start 07/17/16 at 22:00; Stop 07/18/16 at 21:59; Status DC Furosemide 40 mg 40 mg 1X ONCE IVP Last administered on 07/18/16 11:43; Start 07/18/16 at 11:00; Stop 07/18/16 at 11:07; Status DC Sodium Chloride 220 meq/Sodium Acetate 90 meq/ Potassium Chloride 50 meq/ Potassium Acetate 15 meq/Potassium Phosphate 10 mmol/ Magnesium Sulfate 50 meq/ Calcium Gluconate 3 meq/ Multivitamins/ Minerals 10 ml/ Chromium/Copper/ Manganese/Seleni/ Zn 1 ml/Total Parenteral Nutrition/Amino Acids/Dextro... 1, 920 ml @ 80 mls/hr TPN CONT IV Last administered on 07/19/16 00:03; Start 07/18/16 at 22:00; Stop 07/19/16 at 21:59; Status DC Meropenem 1 gm/ Sodium Chloride 100 ml @ 200 mls/hr Q8HRS IV Last administered on 07/20/16 05:21; Start 07/18/16 at 14:00; Stop 07/20/16 at 11:25; Status DC Micafungin Sodium 100 mg/Dextrose 100 ml @ 100 mls/hr Q24H IV Last administered on 07/19/16 15:05; Start 07/18/16 at 14:00; Stop 07/20/16 at 11:25; Status DC Daptomycin/Sodium Chloride (Cubicin/Iv Sodium Chloride 0.9% 50ml) 50 ml @ 100 mls/hr Q24H IV Last administered on 07/19/16 16:56; Start 07/18/16 at 15:00; Stop 07/20/16 at 11:25; Status DC Alteplase, Recombinant (Cathflo) 2 mg 1X ONCE INT CAT Last administered on 07/19 06:24; Start 07/19/16 at 07:00; Stop 07/19/16 at 07:01; Status DC Gentamicin Sulfate 1 each 1 each PRN DAILY PRN MC SEE COMMENTS Last administered on 07/25/16 15:31; Start 07/19/16 at 12:15; Stop 07/25/16 at 16:14 ; Status DC Gentamicin Sulfate/Sodium Chloride (Iv Sodium Chloride 0.9% 100ml) 106.75 ml @ 106.75 mls/hr Q24H IV Last administered on 07/25/16 15:31; Start 07/19/16 at 13 :00; Stop 07/25/16 at 16:12; Status DC Gentamicin Sulfate 1 each 1 each 1X ONCE MC Last administered on 07/19/16 23: 00; Start 07/19/16 at 23:00; Stop 07/19/16 at 23:01; Status DC Sodium Chloride/ Sodium Acetate/ Potassium Chloride/ Potassium Acetate/ Potassium Phosphate/ Magnesium Sulfate/ Calcium Gluconate/ Multivitamins/ Minerals/Chromium/ Copper/Manganese/ Seleni/Zn/Total Parenteral Nutrition/Amino Acids/Dextrose/ Fat Emulsion Intravenous (Sodium Chlori... 1,920 ml @ 80 mls/ hr TPN CONT IV Last administered on 07/19/16 20:51; Start 07/19/16 at 22:00; Stop 07/20/16 at 21:59; Status DC Hyoscyamine (Anaspaz) 0.125 mg PRN Q6HRS PRN PO BLADDER SPASM; Start 07/20/16 at 09:00; Stop 07/31/16 at 15:01; Status DC Phenazopyridine HCl 200 mg 200 mg PRN TID PRN PO BLADDER SPASM Last administered on 07/21/16 20:14; Start 07/20/16 at 09:00; Stop 07/31/16 at 15:01; Status DC Linezolid 300 ml @ 300 mls/hr Q12HR IV Last administered on 07/25/16 09:02; Start 07/20/16 at 12:00; Stop 07/25/16 at 16:12; Status DC Sodium Chloride 220 meq/Sodium Acetate 90 meq/ Potassium Chloride 50 meq/ Potassium Acetate 15 meq/Potassium Phosphate 10 mmol/ Magnesium Sulfate 50 meq/ Calcium Gluconate 3 meq/ Multivitamins/ Minerals 10 ml/ Chromium/Copper/ Manganese/Seleni/ Zn 1 ml/Total Parenteral Nutrition/Amino Acids/Dextro... 1, 920 ml @ 80 mls/hr TPN CONT IV Last administered on 07/20/16 21:30; Start 07/20/16 at 22:00; Stop 07/21/16 at 21:59; Status DC Sodium Chloride/ Sodium Acetate/ Potassium Chloride/ Potassium Acetate/ Potassium Phosphate/ Magnesium Sulfate/ Multivitamins/ Minerals/Chromium/ Copper /Manganese/ Seleni/Zn/Total Parenteral Nutrition/Amino Acids/Dextrose/ Fat Emulsion Intravenous (Sodium Chloride/ Potass... 1,920 ml @ 80 mls/hr TPN CONT IV Last administered on 07/21/16 22:05; Start 07/21/16 at 22:00; Stop at 21:59; Status DC Alteplase, Recombinant 2 mg 2 mg PRN DAILY PRN INT CAT INFLAMMATION Last administered on 07/27/16 11:31; Start 07/21/16 at 15:00 Sodium Chloride 220 meq/Sodium Acetate 90 meq/ Potassium Chloride 50 meq/ Potassium Acetate 15 meq/Potassium Phosphate 10 mmol/ Magnesium Sulfate 50 meq/ Multivitamins/ Minerals 10 ml/ Chromium/Copper/ Manganese/Seleni/ Zn 1 ml/Total Parenteral Nutrition/Amino Acids/Dextrose/ Fat Emuls... 1,920 ml @ 80 mls/hr TPN CONT IV Last administered on 07/22/16 20:53; Start 07/22/16 at 22:00; Stop 07/23/16 at 21:59; Status DC Sodium Chloride/ Sodium Acetate/ Potassium Chloride/ Potassium Acetate/ Potassium Phosphate/ Magnesium Sulfate/ Multivitamins/ Minerals/Chromium/ Copper /Manganese/ Seleni/Zn/Total Parenteral Nutrition/Amino Acids/Dextrose/ Fat Emulsion Intravenous (Sodium Chloride/ Potass... 1,920 ml @ 80 mls/hr TPN CONT IV Last administered on 07/23/16 21:16; Start 07/23/16 at 22:00; Stop 07/24 at 21:59; Status DC Gentamicin Sulfate 1 each 1 each 1X ONCE MC ; Start 07/23/16 at 22:00; Stop 07/23 at 22:01; Status Cancel Sodium Chloride/ Sodium Acetate/ Potassium Chloride/ Potassium Acetate/ Potassium Phosphate/ Magnesium Sulfate/ Multivitamins/ Minerals/Chromium/ Copper /Manganese/ Seleni/Zn/Total Parenteral Nutrition/Amino Acids/Dextrose/ Fat Emulsion Intravenous (Sodium Chloride/ Potass... 1,920 ml @ 80 mls/hr TPN CONT IV Last administered on 07/24/16 21:15; Start 07/24/16 at 22:00; Stop 04/30 at 21:59; Status DC Gentamicin Sulfate 1 each 1X ONCE MC ; Start 07/25/16 at 12:30; Stop 07/25/16 at 12:31; Status Cancel Amlodipine Besylate 5 mg 5 mg DAILY PO Last administered on 07/27/16 11:12; Start 07/25/16 at 12:00; Stop 07/29/16 at 08:44; Status DC Sodium Chloride 220 meq/Sodium Acetate 90 meq/ Potassium Chloride 30 meq/ Potassium Acetate 15 meq/Potassium Phosphate 10 mmol/ Magnesium Sulfate 50 meq/ Multivitamins/ Minerals 10 ml/ Chromium/Copper/ Manganese/Seleni/ Zn 1 ml/Total Parenteral Nutrition/Amino Acids/Dextrose/ Fat Emuls... 1,920 ml @ 80 mls/hr TPN CONT IV Last administered on 07/25/16 22:25; Start 07/25/16 at 22:00; Stop 07/26/16 at 21:59; Status DC Sodium Chloride/ Sodium Acetate/ Potassium Chloride/ Potassium Acetate/ Potassium Phosphate/ Magnesium Sulfate/ Multivitamins/ Minerals/Chromium/ Copper /Manganese/ Seleni/Zn/Total Parenteral Nutrition/Amino Acids/Dextrose/ Fat Emulsion Intravenous (Sodium Chloride/ Potass... 1,920 ml @ 80 mls/hr TPN CONT IV Last administered on 07/26/16 23:16; Start 07/26/16 at 22:00; Stop at 21:59; Status DC Furosemide 20 mg 20 mg 1X ONCE IVP Last administered on 07/27/16 11:31; Start 07/27/16 at 09:00; Stop 07/27/16 at 09:01; Status DC Daptomycin 340 mg/ Sodium Chloride 50 ml @ 100 mls/hr Q24H IV Last administered on 07/29/16 15:05; Start 07/27/16 at 13:00; Stop 07/30/16 at 07:25 ; Status DC Piperacillin Sod/ Tazobactam Sod 3.375 gm/Sodium Chloride 50 ml @ 100 mls/hr Q6HRS IV Last administered on 07/30/16 05:30; Start 07/27/16 at 12:30; Stop at 07:25; Status DC Fluconazole/ Sodium Chloride 100 ml @ 100 mls/hr Q24H IV Last administered on 07/28/16 13:32; Start 07/27/16 at 13:00; Stop 07/29/16 at 00:53; Status DC Sodium Chloride 1,000 ml @ 1,000 mls/hr 1X ONCE IV Last administered on 12:34; Start 07/27/16 at 12:30; Stop 07/27/16 at 13:29; Status DC Sodium Chloride 220 meq/Sodium Acetate 90 meq/ Potassium Chloride 30 meq/ Potassium Acetate 15 meq/Potassium Phosphate 10 mmol/ Magnesium Sulfate 45 meq/ Multivitamins/ Minerals 10 ml/ Chromium/Copper/ Manganese/Seleni/ Zn 1 ml/Total Parenteral Nutrition/Amino Acids/Dextrose/ Fat Emuls... 1,920 ml @ 80 mls/hr TPN CONT IV Last administered on 07/27/16 22:38; Start 07/27/16 at 22:00; Stop 07/28/16 at 21:59; Status DC Sodium Chloride (Iv Sodium Chloride 0.9% 1000ml Bag) 1,000 ml @ 45 mls/hr [id number] IV Last administered on 07/28/16 03:24; Start 07/27/16 at 17:00; Stop 07/28/16 at 10:27; Status DC Acetaminophen 650 mg 650 mg PRN Q6HRS PRN [place] fever Last administered on 03:57; Start 07/27/16 at 16:30; Stop 07/29/16 at 08:33; Status DC Sodium Chloride 1,000 ml @ 427.5 mls/ hr Q2H21M IV Last administered on 19:30; Start 07/27/16 at 19:30; Stop 07/27/16 at 23:30; Status DC Sodium Chloride 220 meq/Sodium Acetate 90 meq/ Potassium Chloride 30 meq/ Potassium Acetate 15 meq/Potassium Phosphate 10 mmol/ Magnesium Sulfate 45 meq/ Multivitamins/ Minerals 10 ml/ Chromium/Copper/ Manganese/Seleni/ Zn 1 ml/Total Parenteral Nutrition/Amino Acids/Dextrose/ Fat Emuls... 1,920 ml @ 80 mls/hr TPN CONT IV Last administered on 07/28/16 21:43; Start 07/28/16 at 22:00; Stop 07/29/16 at 21:59; Status DC Micafungin Sodium/ Dextrose (Mycamine) 100 ml @ 100 mls/hr Q24H IV Last administered on 08/07/16 00:40; Start 07/29/16 at 01:00 Lorazepam (Ativan) 0.05 mg PRN Q4HRS PRN IV ANXIETY / AGITATION; Start at 02:30; Stop 07/29/16 at 02:48; Status DC Lorazepam (Ativan) 0.5 mg PRN Q4HRS PRN IV ANXIETY / AGITATION Last administered on 07/29/16 03:18; Start 07/29/16 at 03:00 Acetaminophen (Tylenol) 650 mg PRN Q4HRS PRN [place] MILD PAIN / TEMP; Start at 08:30 Ketorolac Tromethamine (Toradol) 30 mg PRN Q6HRS PRN IV PAIN/FEVER Last administered on 07/30/16 00:50; Start 07/29/16 at 08:30; Stop 07/30/16 at 13:01 ; Status DC Pantoprazole Sodium 40 mg 40 mg DAILYAC IVP Last administered on 08/07/16 07: 49; Start 07/29/16 at 09:00 Sodium Chloride 1,000 ml @ 45 mls/hr [id number] IV Last administered on 09:17; Start 07/29/16 at 08:45; Stop 07/31/16 at 15:01; Status DC Sodium Chloride/ Sodium Acetate/ Potassium Chloride/ Potassium Acetate/ Potassium Phosphate/ Magnesium Sulfate/ Multivitamins/ Minerals/Chromium/ Copper /Manganese/ Seleni/Zn/Total Parenteral Nutrition/Amino Acids/Dextrose/ Fat Emulsion Intravenous (Sodium Chloride/ Potass... 1,920 ml @ 80 mls/hr TPN CONT IV Last administered on 07/29/16 22:06; Start 07/29/16 at 22:00; Stop at 21:59; Status DC Lidocaine/Sodium Bicarbonate 20 ml 20 ml STK-MED ONCE IJ ; Start 07/29/16 at 13: 13; Stop 07/29/16 at 13:14; Status DC Heparin Sodium/ Sodium Chloride 500 ml @ As Directed STK-MED ONCE .ROUTE ; Start 07/29/16 at 13:13; Stop 07/29/16 at 13:14; Status DC Lidocaine/ Epinephrine (Xylocaine 1%-Epi 1:100,000) 20 ml STK-MED ONCE .ROUTE ; Start 07/29/16 at 13:22; Stop 07/29/16 at 13:23; Status DC Midazolam HCl (Versed) 5 mg STK-MED ONCE .ROUTE ; Start 07/29/16 at 13:32; Stop 07/29/16 at 13:33; Status DC Fentanyl Citrate (Fentanyl 5ml Vial) 250 mcg STK-MED ONCE .ROUTE ; Start at 13:32; Stop 07/29/16 at 13:33; Status DC Heparin Sodium/ Sodium Chloride 1,000 unit 1X ONCE IART Last administered on 13:45; Start 07/29/16 at 13:45; Stop 07/29/16 at 13:48; Status DC Midazolam HCl (Versed) 5 mg 1X ONCE IV Last administered on 07/29/16 13:45; Start 07/29/16 at 13:45; Stop 07/29/16 at 13:48; Status DC Fentanyl Citrate (Fentanyl 5ml Vial) 250 mcg 1X ONCE IV Last administered on 13:45; Start 07/29/16 at 13:45; Stop 07/29/16 at 13:48; Status DC Lidocaine/ Epinephrine 20 ml 20 ml 1X ONCE IJ Last administered on 07/29/16 13:45; Start 07/29/16 at 13:45; Stop 07/29/16 at 13:48; Status DC Sodium Chloride 220 meq/Sodium Acetate 90 meq/ Potassium Chloride 15 meq/ Potassium Acetate 30 meq/Potassium Phosphate 10 mmol/ Magnesium Sulfate 45 meq/ Multivitamins/ Minerals 10 ml/ Chromium/Copper/ Manganese/Seleni/ Zn 1 ml/Total Parenteral Nutrition/Amino Acids/Dextrose/ Fat Emuls... 1,920 ml @ 80 mls/hr TPN CONT IV ; Start 07/30/16 at 22:00; Stop 07/31/16 at 21:59; Status DC Norepinephrine Bitartrate 8 mg/ Sodium Chloride 258 ml @ 1.93 mls/hr 1X ONCE IV Last administered on 07/30/16 11:17; Start 07/30/16 at 11:15; Stop at 15:43; Status DC Norepinephrine Bitartrate/Sodium Chloride (Levophed Vial/ Iv Sodium Chloride 0.9 % 250ml) 258 ml @ 0 mls/hr CONT PRN IV SEE I/O RECORD Last administered on 08/02 19:54; Start 07/30/16 at 11:15; Stop 08/04/16 at 09:29; Status DC Furosemide 60 mg 60 mg 1X ONCE IVP Last administered on 07/30/16 11:14; Start 07/30/16 at 11:15; Stop 07/30/16 at 11:16; Status DC Sodium Chloride 500 ml @ 500 mls/hr Q1H IV Last administered on 07/30/16 17: 04; Start 07/30/16 at 14:30; Stop 07/30/16 at 15:29; Status DC Albumin Human 100 ml @ 100 mls/hr [id number] IV Last administered on 07/31/16 05: 37; Start 07/30/16 at 14:30; Stop 07/31/16 at 06:59; Status DC Furosemide/Sodium Chloride (Lasix Drip/Iv Sodium Chloride 0.9% 100ml) 100 ml @ 0 mls/hr CONT PRN IV SEE I/O RECORD Last administered on 07/31/16 03:17; Start 07/30/16 at 14:30; Stop 08/01/16 at 13:19; Status DC Ondansetron HCl (Zofran) 8 mg PRN Q8HRS PRN IV NAUSEA/VOMITING Last administered on 07/30/16 14:38; Start 07/30/16 at 14:30 Sodium Bicarbonate 50 meq 50 meq 1X ONCE IV Last administered on 07/30/16 14: 43; Start 07/30/16 at 14:30; Stop 07/30/16 at 14:31; Status DC Heparin Sodium/ Sodium Chloride 500 ml @ As Directed STK-MED ONCE .ROUTE ; Start 07/30/16 at 14:49; Stop 07/30/16 at 14:50; Status DC Lidocaine HCl 20 ml STK-MED ONCE .ROUTE ; Start 07/30/16 at 14:49; Stop at 14:50; Status DC Midazolam HCl (Versed) 2 mg STK-MED ONCE .ROUTE ; Start 07/30/16 at 15:19; Stop 07/30/16 at 15:20; Status DC Heparin Sodium/ Sodium Chloride 1,000 unit 1X ONCE IART Last administered on 15:44; Start 07/30/16 at 15:45; Stop 07/30/16 at 15:46; Status DC Midazolam HCl (Versed) 1.5 mg 1X ONCE IV Last administered on 07/30/16 15:44 ; Start 07/30/16 at 15:45; Stop 07/30/16 at 15:46; Status DC Lidocaine HCl 20 ml 1X ONCE IJ Last administered on 07/30/16 15:44; Start at 15:45; Stop 07/30/16 at 15:46; Status DC Heparin Sodium (Porcine) 84241 unit 10,000 unit STK-MED ONCE .ROUTE ; Start at 15:54; Stop 07/30/16 at 15:55; Status DC Fentanyl Citrate 30 ml @ 0 mls/hr CONT PRN PRN IV PROTOCOL Last administered on 08/07/16 06:29; Start 07/30/16 at 16:45 Sodium Bicarbonate/ Dextrose 1,150 ml @ 125 mls/hr 1X ONCE IV Last administered on 07/30/16 18:34; Start 07/30/16 at 17:30; Stop 07/31/16 at 02:41 ; Status DC Succinylcholine Chloride 200 mg 200 mg STK-MED ONCE .ROUTE ; Start 07/30/16 at 19:47; Stop 07/30/16 at 19:48; Status DC Propofol 100 ml @ As Directed STK-MED ONCE IV ; Start 07/30/16 at 19:48; Stop 07/30/16 at 19:49; Status DC Midazolam HCl (Versed 100mg/ 100ml Premix) 100 ml @ 0 mls/hr CONT PRN IV SEE I/ O RECORD Last administered on 08/03/16 12:18; Start 07/30/16 at 21:15 Sodium Bicarbonate 50 meq 50 meq 1X ONCE IV Last administered on 07/30/16 22: 15; Start 07/30/16 at 22:30; Stop 07/30/16 at 22:31; Status DC Dopamine HCl/ Dextrose 250 ml @ 11.513 mls/ hr CONT PRN IV SEE I/O RECORD Last administered on 07/31/16 20:16; Start 07/30/16 at 22:15; Stop 08/04/16 at 09:29; Status DC Sodium Bicarbonate/ Dextrose 1,150 ml @ 125 mls/hr Q9H12M IV Last administered on 08/01/16 09:30; Start 07/31/16 at 03:00; Stop 08/01/16 at 13:19 ; Status DC Propofol (Diprivan) 1,000 mg STK-MED ONCE IV ; Start 07/30/16 at 20:00; Stop at 08:16; Status DC Succinylcholine Chloride 200 mg 200 mg STK-MED ONCE .ROUTE ; Start 07/30/16 at 20:00; Stop 07/31/16 at 08:16; Status DC Tigecycline 50 mg/ Sodium Chloride 50 ml @ 100 mls/hr Q12HR IV Last administered on 08/04/16 09:01; Start 07/31/16 at 21:00; Stop 08/04/16 at 10:00 ; Status DC Tigecycline/ Sodium Chloride (Tygacil/Iv Sodium Chloride 0.9% 100ml) 100 ml @ 200 mls/hr 1X ONCE IV Last administered on 07/31/16 09:22; Start 07/31/16 at 09:00; Stop 07/31/16 at 09:29; Status DC Darbepoetin Sarbjit 60 mcg 60 mcg WEEKLYHS SQ Last administered on 07/31/16 21:09 ; Start 07/31/16 at 21:00 Albumin Human 100 ml @ 100 mls/hr 1X ONCE IV Last administered on 07/31/16 11:40; Start 07/31/16 at 11:15; Stop 07/31/16 at 12:14; Status DC Albumin Human 100 ml @ 100 mls/hr 1X ONCE IV Last administered on 07/31/16 12:03; Start 07/31/16 at 11:15; Stop 07/31/16 at 12:14; Status DC Sodium Chloride (Iv Sodium Chloride 0.9% 1000ml Bag) 1,000 ml @ 1,000 mls/hr Q1H PRN IV hypotension; Start 07/31/16 at 11:33; Stop 07/31/16 at 17:32; Status DC Info (PHARMACY MONITORING -- do not chart) 1 each PRN DAILY PRN MC SEE COMMENTS ; Start 07/31/16 at 11:45 Info (PHARMACY MONITORING -- do not chart) 1 each PRN DAILY PRN MC SEE COMMENTS ; Start 07/31/16 at 11:45; Status UNV Hydrocortisone Sodium Succinate (Solu-Cortef) 100 mg Q8HRS IV Last administered on 08/04/16 06:16; Start 08/01/16 at 07:00; Stop 08/04/16 at 09:29 ; Status DC Albuterol/ Ipratropium (Duoneb) 3 ml RTQID NEB Last administered on 08/07/16 08:18; Start 08/01/16 at 08:00 Albuterol/ Ipratropium 3 ml 3 ml STK-MED ONCE .ROUTE Last administered on 07:34; Start 08/01/16 at 06:59; Stop 08/01/16 at 07:00; Status DC Sodium Chloride 1,000 ml @ 1,000 mls/hr Q1H PRN IV hypotension; Start 08/01/16 at 06:57; Stop 08/01/16 at 12:56; Status DC Albumin Human (Albuminar) 200 ml @ 200 mls/hr 1X PRN PRN IV Hypotension; Start 08/01/16 at 07:00; Stop 08/01/16 at 12:59; Status DC Info (PHARMACY MONITORING -- do not chart) 1 each PRN DAILY PRN MC SEE COMMENTS ; Start 08/01/16 at 07:00; Status UNV Info 1 each 1 each PRN DAILY PRN MC SEE COMMENTS Last administered on 12:13; Start 08/01/16 at 13:30 Sodium Chloride 220 meq/Sodium Acetate 90 meq/ Potassium Chloride 15 meq/ Potassium Acetate 30 meq/Potassium Phosphate 10 mmol/ Magnesium Sulfate 45 meq/ Multivitamins/ Minerals 10 ml/ Chromium/Copper/ Manganese/Seleni/ Zn 1 ml/Total Parenteral Nutrition/Amino Acids/Dextrose/ Fat Emuls... 1,920 ml @ 80 mls/hr TPN CONT IV Last administered on 08/01/16 21:56; Start 08/01/16 at 22:00; Stop 08/02/16 at 21:59; Status DC Potassium Chloride (KCl Premix 20meq) 50 ml @ 50 mls/hr Q1H IV Last administered on 08/01/16 19:05; Start 08/01/16 at 17:00; Stop 08/01/16 at 18:59 ; Status DC Insulin Aspart 0-6 UNITS TIDWMEALS SQ Last administered on 08/02/16 11:33; Start 08/02/16 at 12:00; Stop 08/02/16 at 14:34; Status DC Sodium Chloride 220 meq/Sodium Acetate 90 meq/ Potassium Chloride 15 meq/ Potassium Acetate 30 meq/Magnesium Sulfate 45 meq/ Multivitamins/ Minerals 10 ml / Chromium/Copper/ Manganese/Seleni/ Zn 1 ml/Total Parenteral Nutrition/Amino Acids/Dextrose/ Fat Emulsion Intravenous 1,920 ml @ 80 mls/hr TPN CONT IV Last administered on 08/02/16 21:34; Start 08/02/16 at 22:00; Stop 08/03/16 at 21:59; Status DC Levofloxacin/ Dextrose 150 ml @ 100 mls/hr 1X ONCE IV Last administered on 14:35; Start 08/02/16 at 14:00; Stop 08/02/16 at 15:29; Status DC Daptomycin/Sodium Chloride (Cubicin/Iv Sodium Chloride 0.9% 50ml) 50 ml @ 100 mls/hr ONCE ONCE IV Last administered on 08/02/16 14:34; Start 08/02/16 at 15 :00; Stop 08/02/16 at 15:29; Status DC Insulin Aspart 0-6 UNITS Q6HRS SQ Last administered on 08/06/16 23:37; Start 08/02/16 at 18:00 Sodium Chloride (Iv Sodium Chloride 0.9% 1000ml Bag) 1,000 ml @ 1,000 mls/hr Q1H PRN IV hypotension; Start 08/03/16 at 07:26; Stop 08/03/16 at 13:25; Status DC Diphenhydramine HCl (Benadryl) 25 mg 1X PRN PRN IV ITCHING; Start 08/03/16 at 07:30; Stop 08/04/16 at 07:29; Status DC Diphenhydramine HCl (Benadryl) 25 mg 1X PRN PRN IV ITCHING; Start 08/03/16 at 07:30; Stop 08/04/16 at 07:29; Status DC Sodium Chloride (Normal Saline Flush) 10 ml 1X PRN PRN IV AP catheter pack; Start 08/03/16 at 07:30; Stop 08/04/16 at 07:29; Status DC Sodium Chloride 10 ml 10 ml 1X PRN PRN IV 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 MACHINIST 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; Start 08/03/16 at 07:30; Stop 08/04/16 at 07:29; Status DC Sodium Chloride (Iv Sodium Chloride 0.9% 1000ml Bag) 1,000 ml @ 400 mls/hr Q2H30M PRN IV PATENCY; Start 08/03/16 at 07:26; Stop 08/03/16 at 19:25; Status DC Info 1 each 1 each PRN DAILY PRN MC SEE COMMENTS; Start 08/03/16 at 07:30; Status UNV Albumin Human 200 ml @ 200 mls/hr Q2HR IV Last administered on 08/03/16 10:00 ; Start 08/03/16 at 08:44; Stop 08/03/16 at 10:59; Status DC Sodium Chloride 160 meq/Sodium Acetate 60 meq/ Potassium Chloride 15 meq/ Potassium Acetate 30 meq/Magnesium Sulfate 25 meq/ Multivitamins/ Minerals 10 ml / Chromium/Copper/ Manganese/Seleni/ Zn 1 ml/Total Parenteral Nutrition/Amino Acids/Dextrose/ Fat Emulsion Intravenous 1,500 ml @ 62.5 mls/hr TPN CONT IV Last administered on 08/03/16 22:52; Start 08/03/16 at 22:00; Stop 08/04/16 at 21:59; Status DC Levofloxacin/ Dextrose 100 ml @ 100 mls/hr 1X ONCE IV Last administered on 10:50; Start 08/04/16 at 07:30; Stop 08/04/16 at 08:30; Status DC Daptomycin 450 mg/ Sodium Chloride 50 ml @ 100 mls/hr ONCE ONCE IV Last administered on 08/04/16 09:55; Start 08/04/16 at 08:00; Stop 08/04/16 at 08:30 ; Status DC Tigecycline/ Sodium Chloride (Tygacil/Iv Sodium Chloride 0.9% 50ml) 50 ml @ 100 mls/hr Q12HR IV Last administered on 08/07/16 07:50; Start 08/04/16 at 21: 00 Hydrocortisone Sodium Succinate 50 mg 50 mg Q8HRS IV Last administered on 05:39; Start 08/04/16 at 14:00; Stop 08/05/16 at 11:12; Status DC Furosemide 100 mg/ Sodium Chloride 100 ml @ 0 mls/hr CONT PRN IV SEE I/O RECORD Last administered on 08/06/16 14:15; Start 08/04/16 at 11:30 Sodium Chloride 160 meq/Sodium Acetate 60 meq/ Potassium Chloride 15 meq/ Potassium Acetate 30 meq/Magnesium Sulfate 25 meq/ Multivitamins/ Minerals 10 ml / Chromium/Copper/ Manganese/Seleni/ Zn 1 ml/Total Parenteral Nutrition/Amino Acids/Dextrose/ Fat Emulsion Intravenous 1,500 ml @ 62.5 mls/hr TPN CONT IV Last administered on 08/04/16 21:45; Start 08/04/16 at 22:00; Stop 08/06/16 at 08:48; Status DC Sodium Chloride 1,000 ml @ 1,000 mls/hr Q1H PRN IV hypotension; Start 08/04/16 at 12:00; Stop 08/04/16 at 17:59; Status DC Sodium Chloride (Iv Sodium Chloride 0.9% 1000ml Bag) 1,000 ml @ 400 mls/hr Q2H30M PRN IV PATENCY; Start 08/04/16 at 12:00; Stop 08/04/16 at 23:59; Status DC Info 1 each 1 each PRN DAILY PRN MC SEE COMMENTS; Start 08/04/16 at 16:30; Status UNV Levofloxacin/ Dextrose 100 ml @ 100 mls/hr 1X ONCE IV Last administered on 14:27; Start 08/05/16 at 14:00; Stop 08/05/16 at 14:59; Status DC Daptomycin/Sodium Chloride (Cubicin/Iv Sodium Chloride 0.9% 50ml) 50 ml @ 100 mls/hr 1X ONCE IV Last administered on 08/05/16 14:27; Start 08/05/16 at 14: 00; Stop 08/05/16 at 14:29; Status DC Heparin Sodium (Porcine) 10,000 unit STK-MED ONCE .ROUTE ; Start 08/05/16 at 09: 35; Stop 08/05/16 at 09:36; Status DC Lidocaine/Sodium Bicarbonate 20 ml 20 ml STK-MED ONCE IJ ; Start 08/05/16 at 09: 36; Stop 08/05/16 at 09:37; Status DC Heparin Sodium/ Sodium Chloride 500 ml @ As Directed STK-MED ONCE .ROUTE ; Start 08/05/16 at 09:36; Stop 08/05/16 at 09:37; Status DC Lidocaine/Sodium Bicarbonate (Buffered Lidocaine 1%) 2 ml 1X ONCE IJ Last administered on 08/05/16 10:04; Start 08/05/16 at 10:00; Stop 08/05/16 at 10:02 ; Status DC Heparin Sodium/ Sodium Chloride 60 unit 1X ONCE IV Last administered on 10:04; Start 08/05/16 at 10:00; Stop 08/05/16 at 10:02; Status DC Heparin Sodium (Porcine) 2,800 unit 1X ONCE INT CAT Last administered on 10:04; Start 08/05/16 at 10:00; Stop 08/05/16 at 10:02; Status DC Info (PHARMACY MONITORING -- do not chart) 1 each PRN DAILY PRN MC SEE COMMENTS ; Start 08/05/16 at 10:30; Stop 08/05/16 at 10:30; Status DC Info (PHARMACY MONITORING -- do not chart) 1 each PRN DAILY PRN MC SEE COMMENTS ; Start 08/05/16 at 10:30; Stop 08/05/16 at 10:30; Status DC Hydrocortisone Sodium Succinate 50 mg 50 mg BID IV Last administered on 07:49; Start 08/05/16 at 21:00 Sodium Chloride 160 meq/Sodium Acetate 60 meq/ Potassium Chloride 15 meq/ Potassium Acetate 30 meq/Magnesium Sulfate 25 meq/ Multivitamins/ Minerals 10 ml / Chromium/Copper/ Manganese/Seleni/ Zn 1 ml/Total Parenteral Nutrition/Amino Acids/Dextrose/ Fat Emulsion Intravenous 1,500 ml @ 62.5 mls/hr TPN CONT IV Last administered on 08/05/16 22:04; Start 08/05/16 at 22:00; Stop 08/06/16 at 21:59; Status DC Daptomycin 500 mg/ Sodium Chloride 50 ml @ 100 mls/hr Q24H IV Last administered on 08/06/16 14:09; Start 08/06/16 at 14:00 Sodium Chloride (Iv Sodium Chloride 0.9% 1000ml Bag) 1,000 ml @ 1,000 mls/hr Q1H PRN IV hypotension; Start 08/06/16 at 08:21; Stop 08/06/16 at 14:20; Status DC Diphenhydramine HCl (Benadryl) 25 mg 1X PRN PRN IV ITCHING; Start 08/06/16 at 08:30; Stop 08/07/16 at 08:29; Status DC Diphenhydramine HCl (Benadryl) 25 mg 1X PRN PRN IV ITCHING; Start 08/06/16 at 08:30; Stop 08/07/16 at 08:29; Status DC Sodium Chloride (Normal Saline Flush) 10 ml 1X PRN PRN IV AP catheter pack; Start 08/06/16 at 08:30; Stop 08/07/16 at 08:29; Status DC Sodium Chloride 10 ml 10 ml 1X PRN PRN IV LINOTYPE MACHINIST 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; Start 08/06/16 at 08:30; Stop 08/07/16 at 08:29; Status DC Sodium Chloride (Iv Sodium Chloride 0.9% 1000ml Bag) 1,000 ml @ 400 mls/hr Q2H30M PRN IV PATENCY; Start 08/06/16 at 08:21; Stop 08/06/16 at 20:20; Status DC Info 1 each 1 each PRN DAILY PRN MC SEE COMMENTS; Start 08/06/16 at 08:30; Status UNV Albumin Human 200 ml @ 200 mls/hr 1X STAT IV Last administered on 08/06/16 10:09; Start 08/06/16 at 09:52; Stop 08/06/16 at 10:51; Status DC Sodium Chloride/ Sodium Acetate/ Potassium Chloride/ Potassium Acetate/ Magnesium Sulfate/ Multivitamins/ Minerals/Chromium/ Copper/Manganese/ Seleni/Zn /Total Parenteral Nutrition/Amino Acids/Dextrose/ Fat Emulsion Intravenous ( Sodium Chloride/ Infuvite Adult/ Multitrace-5 Conc/ Tpn - Tpn Flu... 1,500 ml @ 62.5 mls/hr TPN CONT IV Last administered on 08/06/16 21:57; Start at 22:00; Stop 08/07/16 at 21:59 Darbepoetin Sarbjit 60 mcg 60 mcg WEEKLYHS SQ ; Start 08/07/16 at 21:00; Status UNV Potassium Chloride (KCl Premix 20meq) 50 ml @ 50 mls/hr Q1H IV Last administered on 08/07/16 08:09; Start 08/07/16 at 08:00; Stop 08/07/16 at 09:59 Active Scripts Active Dilaudid (Hydromorphone Hcl) 4 Mg Tablet 4 Mg PO Q6HRS Phenazopyridine Hcl 200 Mg Tablet 200 Mg PO PRN TID PRN FENTANYL 50mcg/hr (Fentanyl) 1 Each Patch.td72 1 Patch TD Q3DAYS Anaspaz (Hyoscyamine Sulfate) 0.125 Mg Tab.rapdis 0.125 Mg PO Q6HRS PRN Cefpodoxime Proxetil 200 Mg Tablet 200 Mg PO BID Sertraline Hcl 50 Mg Tablet 100 Mg PO DAILY 30 Days Protonix (Pantoprazole Sodium) 40 Mg Tablet.dr 1 Tab PO DAILY Zinc Oxide 56.7 Gm Oint...g. 1 Sang TP BID Lidocaine 35.44 Gm Oint...g. 1 Sang TP BID Ondansetron Odt (Ondansetron) 4 Mg Tab.rapdis 8 Mg PO PRN Q8HRS PRN Gas-X (Simethicone) 80 Mg Tab.chew 80 Mg PO PRN QID PRN Reported Lorazepam 0.5 Mg Tablet 0.5 Mg PO PRN BID PRN Vitals/I & O Vital Sign - Last 24 Hours 08/06/16 08/06/16 08/06/16 08/06/16 09:23 10:00 11:00 11:04 Temp 97.4 97.4 Pulse 110 102 Resp 28 33 B/P 95/75 110/86 Pulse Ox 100 99 99 100 O2 Delivery Ventilator Ventilator Ventilator Ventilator 08/06/16 08/06/16 08/06/16 08/06/16 12:00 12:00 12:43 12:48 Temp 97.8 98.1 97.8 98.1 Pulse 102 97 98 Resp B/P 104/87 123/82 89/61 Pulse Ox 100 O2 Delivery Ventilator Mechanical Ventilator 08/06/16 08/06/16 08/06/16 08/06/16 12:58 13:00 13:01 13:06 Temp 98.2 98.2 97.6 98.2 98.2 97.6 Pulse 95 101 100 95 Resp B/P 107/75 103/79 97/59 102/62 Pulse Ox 100 O2 Delivery Ventilator 08/06/16 08/06/16 08/06/16 08/06/16 13:15 13:54 14:00 14:24 Temp 97.6 98.1 97.6 98.1 Pulse 87 98 Resp B/P 102/62 124/63 Pulse Ox 100 99 99 O2 Delivery Ventilator Ventilator Ventilator 08/06/16 08/06/16 08/06/16 08/06/16 15:00 16:00 16:00 16:15 Pulse 84 82 Resp 22 21 B/P 137/71 137/74 Pulse Ox 99 99 100 O2 Delivery Ventilator Ventilator Mechanical Ventilator Ventilator 08/06/16 08/06/16 08/06/16 08/06/16 17:00 18:00 19:00 19:35 Temp 97.6 97.6 Pulse 80 77 79 Resp 20 28 20 B/P 137/72 135/71 137/63 Pulse Ox 99 99 100 100 O2 Delivery Ventilator Ventilator Ventilator Ventilator 08/06/16 08/06/16 08/06/16 08/06/16 20:00 20:00 21:00 21:25 Temp 97.8 97.8 Pulse 72 72 Resp 20 20 B/P 120/51 116/56 Pulse Ox 100 100 100 O2 Delivery Ventilator Mechanical Ventilator Ventilator Ventilator 08/06/16 08/06/16 08/06/16 08/07/16 22:00 23:00 23:59 00:00 Temp 97.4 97.4 Pulse 71 65 67 Resp 20 20 20 B/P 124/59 122/69 140/59 Pulse Ox 100 100 100 O2 Delivery Ventilator Ventilator Mechanical Ventilator Ventilator 08/07/16 08/07/16 08/07/16 08/07/16 00:29 01:00 02:00 02:57 Pulse 81 66 Resp 20 20 B/P 157/74 144/66 Pulse Ox 100 100 100 100 O2 Delivery Ventilator Ventilator Ventilator Ventilator 08/07/16 08/07/16 08/07/16 08/07/16 03:00 03:50 04:00 05:00 Temp 97.4 97.4 Pulse 68 64 65 Resp 20 20 20 B/P 140/76 135/72 129/72 Pulse Ox 100 100 100 O2 Delivery Ventilator Mechanical Ventilator Ventilator Ventilator 08/07/16 08/07/16 05:15 06:00 Pulse 60 Resp 20 B/P 136/60 Pulse Ox 100 100 O2 Delivery Ventilator Ventilator Intake and Output 08/06/16 08/06/16 08/07/16 15:00 23:00 07:00 Intake Total 234 ml 50 ml 978 ml Output Total 510 ml 257 ml 1189 ml Balance -276 ml -207 ml -211 ml ENMA FINLEY MD Aug 07, 2016 09:23
[2016-08-07 09:42] LABS: HCO3 ABG 26 mmol/L (21-28); PCO2 ABG 32 mmHg (35-46); PH ABG 7.53 (7.35-7.45); PO2 ABG 181 mmHg (65-108); SAT O2 ABG 99 % (92-99)
--- NOTE | 2016-08-07 09:49 | PDOC ---
PROGRESS NOTES Subjective Subjective Patient is intubated off sedation, more awake and receiving HD. Nursing reports her urine output picked up overnight and was over 1000 mL. Objective Objective Vital Signs Date Time Temp Pulse Resp B/P Pulse Ox O2 Delivery O2 Flow Rate FiO2 08/07/16 06:00 60 20 136/60 100 Ventilator 08/07/16 04:00 97.4 97.4 08/04/16 03:55 50.0 Intake and Output 08/07/16 07:00 Intake Total 1262 ml Output Total 1956 ml Balance -694 ml IV Total 1028 ml Blood Product IV Normal Saline Flush 234 ml Output Urine Total 1506 ml Other 450 ml Physical Exam Heart: Regular rate, Normal S1, Normal S2, No murmurs Extremities: No clubbing, No cyanosis, Other (Moderate generalized peripheral edema) General: mild distress, Other (intermittently awake) Neck: Other (mild JVD) Skin: Other (oozing from EC fistula, dried blood on lips and around Dialysis catheter on right lateral neck) Assessment Assessment 61 year old female recovering from DIC and septic shocked with multiorgan dysfuction secondary to fungemia and UTI. She is intubated without sedation and getting TPN and hemodyalisis as needed. She is getting blood product replacement as needed. Her peripheral edema is likely non cardiogenic in nature as her echo from 07/30/16 was significant for mild diastolic dysfunction with normal systolic function and EF of 69%. Problems Medical Problems: (1) Abdominal pain Status: Acute (2) Enterocutaneous fistula Status: Acute (3) Sepsis Status: Acute (4) Urinary tract infection Status: Acute (5) UTI (urinary tract infection) Status: Acute Plan Plan of Care Cardiac status has remained unchanged. Agree with current plan of care. Will continue to monitor closely. Comment Review of Relevant I have reviewed the following items lucila (where applicable) has been applied. Labs Laboratory Tests Test 08/05/16 13:15 08/05/16 13:17 08/05/16 23:50 08/06/16 05:23 Prothrombin Time 16.1SEC (11.7-14.0) Prothromb Time International Ratio 1.4 (0.8-1.1) Fibrinogen 102mg/dL (200-440) Glucose (Fingerstick) 133mg/dL (70-99) 153mg/dL (70-99) 175mg/dL (70-99) Test 08/06/16 05:25 08/06/16 08:00 08/06/16 14:04 08/06/16 23:35 White Blood Count 8.2x10^3/uL (4.0-11.0) Red Blood Count 3.24x10^6/uL (3.50-5.40) Hemoglobin 8.2g/dL (12.0-15.5) Hematocrit 25.1% (36.0-47.0) Mean Corpuscular Volume 78fL (79-100) Mean Corpuscular Hemoglobin 25pg (25-35) Mean Corpuscular Hemoglobin Concent 33g/dL (31-37) Red Cell Distribution Width 20.4% (11.5-14.5) Platelet Count 49x10^3/uL (140-400) Neutrophils (%) (Auto) 81% (31-73) Lymphocytes (%) (Auto) 12% (24-48) Monocytes (%) (Auto) 7% (0-9) Eosinophils (%) (Auto) 0% (0-3) Basophils (%) (Auto) 0% (0-3) Neutrophils # (Auto) 6.6x10^3uL (1.8-7.7) Lymphocytes # (Auto) 1.0x10^3/uL (1.0-4.8) Monocytes # (Auto) 0.6x10^3/uL (0.0-1.1) Eosinophils # (Auto) 0.0x10^3/uL (0.0-0.7) Basophils # (Auto) 0.0x10^3/uL (0.0-0.2) Platelet Estimate Decreased (ADEQUATE) Hypochromasia Slight Anisocytosis Mod Fibrinogen 68mg/dL (200-440) Sodium Level 145mmol/L (136-145) Potassium Level 3.1mmol/L (3.5-5.1) Chloride Level 105mmol/L (98-107) Carbon Dioxide Level 27mmol/L (21-32) Anion Gap 13 (6-14) Blood Urea Nitrogen 72mg/dL (7-20) Creatinine 1.4mg/dL (0.6-1.0) Estimated GFR (Cockcroft-Gault) 46.3 Glucose Level 177mg/dL (70-99) Lactic Acid Level 2.0mmol/L (0.4-2.0) Calcium Level 8.9mg/dL (8.5-10.1) Phosphorus Level 4.8mg/dL (2.6-4.7) Magnesium Level 2.6mg/dL (1.8-2.4) O2 Saturation 99% (92-99) Arterial Blood pH 7.51 (7.35-7.45) Arterial Blood pCO2 at Patient Temp 30mmHg (35-46) Arterial Blood pO2 at Patient Temp 208mmHg (65-108) Arterial Blood HCO3 24mmol/L (21-28) Arterial Blood Base Excess 1mmol/L (-3-3) FiO2 40% Glucose (Fingerstick) 148mg/dL (70-99) 201mg/dL (70-99) Test 08/07/16 06:07 08/07/16 06:10 Glucose (Fingerstick) 140mg/dL (70-99) White Blood Count 6.5x10^3/uL (4.0-11.0) Red Blood Count 2.88x10^6/uL (3.50-5.40) Hemoglobin 7.3g/dL (12.0-15.5) Hematocrit 22.3% (36.0-47.0) Mean Corpuscular Volume 77fL (79-100) Mean Corpuscular Hemoglobin 25pg (25-35) Mean Corpuscular Hemoglobin Concent 33g/dL (31-37) Red Cell Distribution Width 20.0% (11.5-14.5) Platelet Count 40x10^3/uL (140-400) Neutrophils (%) (Auto) 81% (31-73) Lymphocytes (%) (Auto) 13% (24-48) Monocytes (%) (Auto) 6% (0-9) Eosinophils (%) (Auto) 0% (0-3) Basophils (%) (Auto) 0% (0-3) Neutrophils # (Auto) 5.2x10^3uL (1.8-7.7) Lymphocytes # (Auto) 0.9x10^3/uL (1.0-4.8) Monocytes # (Auto) 0.4x10^3/uL (0.0-1.1) Eosinophils # (Auto) 0.0x10^3/uL (0.0-0.7) Basophils # (Auto) 0.0x10^3/uL (0.0-0.2) Prothrombin Time 17.3SEC (11.7-14.0) Prothromb Time International Ratio 1.5 (0.8-1.1) Fibrinogen 121mg/dL (200-440) Sodium Level 145mmol/L (136-145) Potassium Level 2.8mmol/L (3.5-5.1) Chloride Level 104mmol/L (98-107) Carbon Dioxide Level 31mmol/L (21-32) Anion Gap 10 (6-14) Blood Urea Nitrogen 72mg/dL (7-20) Creatinine 1.2mg/dL (0.6-1.0) Estimated GFR (Cockcroft-Gault) 55.3 Glucose Level 149mg/dL (70-99) Lactic Acid Level 1.5mmol/L (0.4-2.0) Calcium Level 9.1mg/dL (8.5-10.1) Total Bilirubin 5.5mg/dL (0.2-1.0) Direct Bilirubin 2.9mg/dL (0.0-0.2) Aspartate Amino Transf (AST/SGOT) 37U/L (15-37) Alanine Aminotransferase (ALT/SGPT) 44U/L (14-59) Alkaline Phosphatase 155U/L (46-116) Total Protein 6.3g/dL (6.4-8.2) Albumin 3.2g/dL (3.4-5.0) Laboratory Tests Test 08/06/16 14:04 08/06/16 23:35 08/07/16 06:07 08/07/16 06:10 Glucose (Fingerstick) 148mg/dL (70-99) 201mg/dL (70-99) 140mg/dL (70-99) White Blood Count 6.5x10^3/uL (4.0-11.0) Red Blood Count 2.88x10^6/uL (3.50-5.40) Hemoglobin 7.3g/dL (12.0-15.5) Hematocrit 22.3% (36.0-47.0) Mean Corpuscular Volume 77fL (79-100) Mean Corpuscular Hemoglobin 25pg (25-35) Mean Corpuscular Hemoglobin Concent 33g/dL (31-37) Red Cell Distribution Width 20.0% (11.5-14.5) Platelet Count 40x10^3/uL (140-400) Neutrophils (%) (Auto) 81% (31-73) Lymphocytes (%) (Auto) 13% (24-48) Monocytes (%) (Auto) 6% (0-9) Eosinophils (%) (Auto) 0% (0-3) Basophils (%) (Auto) 0% (0-3) Neutrophils # (Auto) 5.2x10^3uL (1.8-7.7) Lymphocytes # (Auto) 0.9x10^3/uL (1.0-4.8) Monocytes # (Auto) 0.4x10^3/uL (0.0-1.1) Eosinophils # (Auto) 0.0x10^3/uL (0.0-0.7) Basophils # (Auto) 0.0x10^3/uL (0.0-0.2) Prothrombin Time 17.3SEC (11.7-14.0) Prothromb Time International Ratio 1.5 (0.8-1.1) Fibrinogen 121mg/dL (200-440) Sodium Level 145mmol/L (136-145) Potassium Level 2.8mmol/L (3.5-5.1) Chloride Level 104mmol/L (98-107) Carbon Dioxide Level 31mmol/L (21-32) Anion Gap 10 (6-14) Blood Urea Nitrogen 72mg/dL (7-20) Creatinine 1.2mg/dL (0.6-1.0) Estimated GFR (Cockcroft-Gault) 55.3 Glucose Level 149mg/dL (70-99) Lactic Acid Level 1.5mmol/L (0.4-2.0) Calcium Level 9.1mg/dL (8.5-10.1) Total Bilirubin 5.5mg/dL (0.2-1.0) Direct Bilirubin 2.9mg/dL (0.0-0.2) Aspartate Amino Transf (AST/SGOT) 37U/L (15-37) Alanine Aminotransferase (ALT/SGPT) 44U/L (14-59) Alkaline Phosphatase 155U/L (46-116) Total Protein 6.3g/dL (6.4-8.2) Albumin 3.2g/dL (3.4-5.0) Microbiology 08/01/16 Blood Culture - Final, Complete NO GROWTH AFTER 5 DAYS 07/15/16 Urine Culture - Final, Complete 07/15/16 Urine Culture Result 1 (ROYA) - Final, Complete 07/15/16 Urine Culture Result 2 (ROYA) - Final, Complete 07/15/16 Antimicrobic Susceptibility - Final, Complete 07/29/16 Aerobic Culture - Final, Complete 07/29/16 Aerobic Culture Result 1 (ROYA) - Final, Complete Medications Current Medications Piperacillin Sod/ Tazobactam Sod/ Sodium Chloride (Zosyn/Iv Sodium Chloride 0.9 % 100ml) 100 ml @ 200 mls/hr 1X ONCE IV Last administered on 07/15/16 22:56; Start 07/15/16 at 22:00; Stop 07/15/16 at 22:29; Status DC Fentanyl Citrate 50 mcg 50 mcg PRN Q15MIN PRN IV PAIN GREATER THAN 3/10 Last administered on 07/16/16 00:30; Start 07/15/16 at 21:45; Stop 07/16/16 at 02:00; Status DC Sodium Chloride 1,000 ml @ 1,000 mls/hr 1X ONCE IV Last administered on 21:59; Start 07/15/16 at 22:00; Stop 07/15/16 at 22:59; Status DC Sodium Chloride (Iv Sodium Chloride 0.9% 500ml Bag) 500 ml @ 500 mls/hr 1X ONCE IV Last administered on 07/15/16 22:00; Start 07/15/16 at 22:00; Stop at 22:59; Status DC Ondansetron HCl (Zofran) 4 mg PRN Q8HRS PRN IV NAUSEA/VOMITING; Start 07/15/16 at 23:30; Stop 07/16/16 at 08:52; Status DC Fentanyl Citrate 50 mcg 50 mcg PRN Q2HR PRN IV SEVERE PAIN Last administered on 07/16/16 08:10; Start 07/15/16 at 23:30; Stop 07/16/16 at 08:52; Status DC Sodium Chloride (Iv Sodium Chloride 0.9% 1000ml Bag) 1,000 ml @ 150 mls/hr Q6H40M IV Last administered on 07/15/16 02:00; Start 07/15/16 at 23:45; Stop 07/16/16 at 08:52; Status DC Acetaminophen (Tylenol) 650 mg PRN Q4HRS PRN PO FEVER; Start 07/15/16 at 23:30; Stop 07/16/16 at 23:29; Status DC Info (Do NOT chart on this placeholder) 1 each PRN DAILY PRN MC NEEDS VERIFICATION; Start 07/16/16 at 03:00; Status Cancel Acetaminophen 650 mg 650 mg PRN Q4HRS PRN PO MILD PAIN / TEMP Last administered on 07/28/16 07:42; Start 07/16/16 at 08:45; Stop 07/29/16 at 08:33 ; Status DC Piperacillin Sod/ Tazobactam Sod 3.375 gm/Sodium Chloride 50 ml @ 100 mls/hr Q6HRS IV Last administered on 07/18/16 05:50; Start 07/16/16 at 10:00; Stop 07/18 at 13:28; Status DC Linezolid (Zyvox Premix) 300 ml @ 300 mls/hr Q12HR IV Last administered on 07/18 08:34; Start 07/16/16 at 10:00; Stop 07/18/16 at 13:28; Status DC Hydromorphone HCl (Dilaudid) 2 mg PRN Q4HRS PRN IV MODERATE PAIN Last administered on 07/28/16 23:33; Start 07/16/16 at 08:45 Hydromorphone HCl (Dilaudid) 4 mg PRN Q4HRS PRN IV SEVERE PAIN Last administered on 07/30/16 09:23; Start 07/16/16 at 08:45; Stop 07/31/16 at 15:01 ; Status DC Pantoprazole Sodium (Protonix) 40 mg DAILYAC PO Last administered on 07/27/16 11:11; Start 07/16/16 at 09:30; Stop 07/29/16 at 08:44; Status DC Hyoscyamine (Anaspaz) 0.125 mg Q6HRS PO Last administered on 07/20/16 05:20; Start 07/16/16 at 12:00; Stop 07/20/16 at 08:58; Status DC Phenazopyridine HCl (Pyridium) 200 mg TID PO Last administered on 07/20/16 08: 25; Start 07/16/16 at 09:30; Stop 07/20/16 at 08:58; Status DC Lorazepam (Ativan) 0.5 mg PRN BID PRN PO ANXIETY / AGITATION Last administered on 07/29/16 02:16; Start 07/16/16 at 08:45; Stop 07/31/16 at 15:01; Status DC Simethicone (Gas-X) 80 mg PRN Q4HRS PRN PO GAS / BLOATING Last administered on 07/24/16 22:30; Start 07/16/16 at 08:45; Stop 07/31/16 at 15:01; Status DC Zolpidem Tartrate 5 mg 5 mg PRN QHS PRN PO INSOMNIA Last administered on 23:14; Start 07/16/16 at 08:45; Stop 07/31/16 at 15:01; Status DC Potassium Chloride/Dextrose/ Sod Cl 1,000 ml @ 80 mls/hr [id number] IV Last administered on 07/16/16 10:54; Start 07/16/16 at 09:30; Stop 07/16/16 at 21:59; Status DC Fluconazole/ Sodium Chloride (Diflucan 200mg/ 100ml Premix) 100 ml @ 100 mls/ hr Q24H IV Last administered on 07/18/16 11:43; Start 07/16/16 at 11:00; Stop at 13:28; Status DC Info 1 each 1 each PRN DAILY PRN MC SEE COMMENTS Last administered on 12:41; Start 07/16/16 at 10:00; Stop 08/01/16 at 11:24; Status DC Sodium Chloride 220 meq/Sodium Acetate 90 meq/ Potassium Chloride 50 meq/ Potassium Acetate 15 meq/Potassium Phosphate 10 mmol/ Magnesium Sulfate 50 meq/ Calcium Gluconate 6 meq/ Multivitamins/ Minerals 10 ml/ Chromium/Copper/ Manganese/Seleni/ Zn 1 ml/Total Parenteral Nutrition/Amino Acids/Dextro... 1, 920 ml @ 80 mls/hr TPN CONT IV ; Start 07/16/16 at 22:00; Stop 07/16/16 at 22:00 ; Status DC Sodium Chloride/ Sodium Acetate/ Potassium Chloride/ Potassium Acetate/ Potassium Phosphate/ Magnesium Sulfate/ Calcium Gluconate/ Multivitamins/ Minerals/Chromium/ Copper/Manganese/ Seleni/Zn/Total Parenteral Nutrition/Amino Acids/Dextrose/ Fat Emulsion Intravenous (Sodium Chlori... 1,820 ml @ 75.833 mls/ hr TPN CONT IV Last administered on 07/16/16 21:03; Start 07/16/16 at 22: 00; Stop 07/17/16 at 21:59; Status DC Ondansetron HCl (Zofran) 4 mg PRN Q6HRS PRN IV NAUSEA/VOMITING Last administered on 07/21/16 08:48; Start 07/16/16 at 17:15; Stop 07/31/16 at 15:01; Status DC Diphenhydramine HCl (Benadryl) 25 mg PRN Q6HRS PRN PO ITCHING Last administered on 07/25/16 23:38; Start 07/16/16 at 17:45; Stop 07/31/16 at 15:01 ; Status DC Lidocaine (Xylocaine) 1 sang BID TP Last administered on 08/07/16 07:50; Start 07/17/16 at 09:00 Zinc Oxide 1 sang 1 sang BID TP Last administered on 08/07/16 07:50; Start at 09:30 Sodium Chloride/ Sodium Acetate/ Potassium Chloride/ Potassium Acetate/ Potassium Phosphate/ Magnesium Sulfate/ Calcium Gluconate/ Multivitamins/ Minerals/Chromium/ Copper/Manganese/ Seleni/Zn/Total Parenteral Nutrition/Amino Acids/Dextrose/ Fat Emulsion Intravenous (Sodium Chlori... 1,920 ml @ 80 mls/ hr TPN CONT IV Last administered on 07/17/16 22:13; Start 07/17/16 at 22:00; Stop 07/18/16 at 21:59; Status DC Furosemide 40 mg 40 mg 1X ONCE IVP Last administered on 07/18/16 11:43; Start 07/18/16 at 11:00; Stop 07/18/16 at 11:07; Status DC Sodium Chloride 220 meq/Sodium Acetate 90 meq/ Potassium Chloride 50 meq/ Potassium Acetate 15 meq/Potassium Phosphate 10 mmol/ Magnesium Sulfate 50 meq/ Calcium Gluconate 3 meq/ Multivitamins/ Minerals 10 ml/ Chromium/Copper/ Manganese/Seleni/ Zn 1 ml/Total Parenteral Nutrition/Amino Acids/Dextro... 1, 920 ml @ 80 mls/hr TPN CONT IV Last administered on 07/19/16 00:03; Start 07/18/16 at 22:00; Stop 07/19/16 at 21:59; Status DC Meropenem 1 gm/ Sodium Chloride 100 ml @ 200 mls/hr Q8HRS IV Last administered on 07/20/16 05:21; Start 07/18/16 at 14:00; Stop 07/20/16 at 11:25; Status DC Micafungin Sodium 100 mg/Dextrose 100 ml @ 100 mls/hr Q24H IV Last administered on 07/19/16 15:05; Start 07/18/16 at 14:00; Stop 07/20/16 at 11:25; Status DC Daptomycin/Sodium Chloride (Cubicin/Iv Sodium Chloride 0.9% 50ml) 50 ml @ 100 mls/hr Q24H IV Last administered on 07/19/16 16:56; Start 07/18/16 at 15:00; Stop 07/20/16 at 11:25; Status DC Alteplase, Recombinant (Cathflo) 2 mg 1X ONCE INT CAT Last administered on 07/19 06:24; Start 07/19/16 at 07:00; Stop 07/19/16 at 07:01; Status DC Gentamicin Sulfate 1 each 1 each PRN DAILY PRN MC SEE COMMENTS Last administered on 07/25/16 15:31; Start 07/19/16 at 12:15; Stop 07/25/16 at 16:14 ; Status DC Gentamicin Sulfate/Sodium Chloride (Iv Sodium Chloride 0.9% 100ml) 106.75 ml @ 106.75 mls/hr Q24H IV Last administered on 07/25/16 15:31; Start 07/19/16 at 13 :00; Stop 07/25/16 at 16:12; Status DC Gentamicin Sulfate 1 each 1 each 1X ONCE MC Last administered on 07/19/16 23: 00; Start 07/19/16 at 23:00; Stop 07/19/16 at 23:01; Status DC Sodium Chloride/ Sodium Acetate/ Potassium Chloride/ Potassium Acetate/ Potassium Phosphate/ Magnesium Sulfate/ Calcium Gluconate/ Multivitamins/ Minerals/Chromium/ Copper/Manganese/ Seleni/Zn/Total Parenteral Nutrition/Amino Acids/Dextrose/ Fat Emulsion Intravenous (Sodium Chlori... 1,920 ml @ 80 mls/ hr TPN CONT IV Last administered on 07/19/16 20:51; Start 07/19/16 at 22:00; Stop 07/20/16 at 21:59; Status DC Hyoscyamine (Anaspaz) 0.125 mg PRN Q6HRS PRN PO BLADDER SPASM; Start 07/20/16 at 09:00; Stop 07/31/16 at 15:01; Status DC Phenazopyridine HCl 200 mg 200 mg PRN TID PRN PO BLADDER SPASM Last administered on 07/21/16 20:14; Start 07/20/16 at 09:00; Stop 07/31/16 at 15:01; Status DC Linezolid 300 ml @ 300 mls/hr Q12HR IV Last administered on 07/25/16 09:02; Start 07/20/16 at 12:00; Stop 07/25/16 at 16:12; Status DC Sodium Chloride 220 meq/Sodium Acetate 90 meq/ Potassium Chloride 50 meq/ Potassium Acetate 15 meq/Potassium Phosphate 10 mmol/ Magnesium Sulfate 50 meq/ Calcium Gluconate 3 meq/ Multivitamins/ Minerals 10 ml/ Chromium/Copper/ Manganese/Seleni/ Zn 1 ml/Total Parenteral Nutrition/Amino Acids/Dextro... 1, 920 ml @ 80 mls/hr TPN CONT IV Last administered on 07/20/16 21:30; Start 07/20/16 at 22:00; Stop 07/21/16 at 21:59; Status DC Sodium Chloride/ Sodium Acetate/ Potassium Chloride/ Potassium Acetate/ Potassium Phosphate/ Magnesium Sulfate/ Multivitamins/ Minerals/Chromium/ Copper /Manganese/ Seleni/Zn/Total Parenteral Nutrition/Amino Acids/Dextrose/ Fat Emulsion Intravenous (Sodium Chloride/ Potass... 1,920 ml @ 80 mls/hr TPN CONT IV Last administered on 07/21/16 22:05; Start 07/21/16 at 22:00; Stop at 21:59; Status DC Alteplase, Recombinant 2 mg 2 mg PRN DAILY PRN INT CAT INFLAMMATION Last administered on 07/27/16 11:31; Start 07/21/16 at 15:00 Sodium Chloride 220 meq/Sodium Acetate 90 meq/ Potassium Chloride 50 meq/ Potassium Acetate 15 meq/Potassium Phosphate 10 mmol/ Magnesium Sulfate 50 meq/ Multivitamins/ Minerals 10 ml/ Chromium/Copper/ Manganese/Seleni/ Zn 1 ml/Total Parenteral Nutrition/Amino Acids/Dextrose/ Fat Emuls... 1,920 ml @ 80 mls/hr TPN CONT IV Last administered on 07/22/16 20:53; Start 07/22/16 at 22:00; Stop 07/23/16 at 21:59; Status DC Sodium Chloride/ Sodium Acetate/ Potassium Chloride/ Potassium Acetate/ Potassium Phosphate/ Magnesium Sulfate/ Multivitamins/ Minerals/Chromium/ Copper /Manganese/ Seleni/Zn/Total Parenteral Nutrition/Amino Acids/Dextrose/ Fat Emulsion Intravenous (Sodium Chloride/ Potass... 1,920 ml @ 80 mls/hr TPN CONT IV Last administered on 07/23/16 21:16; Start 07/23/16 at 22:00; Stop 07/24 at 21:59; Status DC Gentamicin Sulfate 1 each 1 each 1X ONCE MC ; Start 07/23/16 at 22:00; Stop 07/23 at 22:01; Status Cancel Sodium Chloride/ Sodium Acetate/ Potassium Chloride/ Potassium Acetate/ Potassium Phosphate/ Magnesium Sulfate/ Multivitamins/ Minerals/Chromium/ Copper /Manganese/ Seleni/Zn/Total Parenteral Nutrition/Amino Acids/Dextrose/ Fat Emulsion Intravenous (Sodium Chloride/ Potass... 1,920 ml @ 80 mls/hr TPN CONT IV Last administered on 07/24/16 21:15; Start 07/24/16 at 22:00; Stop 04/30 at 21:59; Status DC Gentamicin Sulfate 1 each 1X ONCE MC ; Start 07/25/16 at 12:30; Stop 07/25/16 at 12:31; Status Cancel Amlodipine Besylate 5 mg 5 mg DAILY PO Last administered on 07/27/16 11:12; Start 07/25/16 at 12:00; Stop 07/29/16 at 08:44; Status DC Sodium Chloride 220 meq/Sodium Acetate 90 meq/ Potassium Chloride 30 meq/ Potassium Acetate 15 meq/Potassium Phosphate 10 mmol/ Magnesium Sulfate 50 meq/ Multivitamins/ Minerals 10 ml/ Chromium/Copper/ Manganese/Seleni/ Zn 1 ml/Total Parenteral Nutrition/Amino Acids/Dextrose/ Fat Emuls... 1,920 ml @ 80 mls/hr TPN CONT IV Last administered on 07/25/16 22:25; Start 07/25/16 at 22:00; Stop 07/26/16 at 21:59; Status DC Sodium Chloride/ Sodium Acetate/ Potassium Chloride/ Potassium Acetate/ Potassium Phosphate/ Magnesium Sulfate/ Multivitamins/ Minerals/Chromium/ Copper /Manganese/ Seleni/Zn/Total Parenteral Nutrition/Amino Acids/Dextrose/ Fat Emulsion Intravenous (Sodium Chloride/ Potass... 1,920 ml @ 80 mls/hr TPN CONT IV Last administered on 07/26/16 23:16; Start 07/26/16 at 22:00; Stop at 21:59; Status DC Furosemide 20 mg 20 mg 1X ONCE IVP Last administered on 07/27/16 11:31; Start 07/27/16 at 09:00; Stop 07/27/16 at 09:01; Status DC Daptomycin 340 mg/ Sodium Chloride 50 ml @ 100 mls/hr Q24H IV Last administered on 07/29/16 15:05; Start 07/27/16 at 13:00; Stop 07/30/16 at 07:25 ; Status DC Piperacillin Sod/ Tazobactam Sod 3.375 gm/Sodium Chloride 50 ml @ 100 mls/hr Q6HRS IV Last administered on 07/30/16 05:30; Start 07/27/16 at 12:30; Stop at 07:25; Status DC Fluconazole/ Sodium Chloride 100 ml @ 100 mls/hr Q24H IV Last administered on 07/28/16 13:32; Start 07/27/16 at 13:00; Stop 07/29/16 at 00:53; Status DC Sodium Chloride 1,000 ml @ 1,000 mls/hr 1X ONCE IV Last administered on 12:34; Start 07/27/16 at 12:30; Stop 07/27/16 at 13:29; Status DC Sodium Chloride 220 meq/Sodium Acetate 90 meq/ Potassium Chloride 30 meq/ Potassium Acetate 15 meq/Potassium Phosphate 10 mmol/ Magnesium Sulfate 45 meq/ Multivitamins/ Minerals 10 ml/ Chromium/Copper/ Manganese/Seleni/ Zn 1 ml/Total Parenteral Nutrition/Amino Acids/Dextrose/ Fat Emuls... 1,920 ml @ 80 mls/hr TPN CONT IV Last administered on 07/27/16 22:38; Start 07/27/16 at 22:00; Stop 07/28/16 at 21:59; Status DC Sodium Chloride (Iv Sodium Chloride 0.9% 1000ml Bag) 1,000 ml @ 45 mls/hr [id number] IV Last administered on 07/28/16 03:24; Start 07/27/16 at 17:00; Stop 07/28/16 at 10:27; Status DC Acetaminophen 650 mg 650 mg PRN Q6HRS PRN RI fever Last administered on 03:57; Start 07/27/16 at 16:30; Stop 07/29/16 at 08:33; Status DC Sodium Chloride 1,000 ml @ 427.5 mls/ hr Q2H21M IV Last administered on 19:30; Start 07/27/16 at 19:30; Stop 07/27/16 at 23:30; Status DC Sodium Chloride 220 meq/Sodium Acetate 90 meq/ Potassium Chloride 30 meq/ Potassium Acetate 15 meq/Potassium Phosphate 10 mmol/ Magnesium Sulfate 45 meq/ Multivitamins/ Minerals 10 ml/ Chromium/Copper/ Manganese/Seleni/ Zn 1 ml/Total Parenteral Nutrition/Amino Acids/Dextrose/ Fat Emuls... 1,920 ml @ 80 mls/hr TPN CONT IV Last administered on 07/28/16 21:43; Start 07/28/16 at 22:00; Stop 07/29/16 at 21:59; Status DC Micafungin Sodium/ Dextrose (Mycamine) 100 ml @ 100 mls/hr Q24H IV Last administered on 08/07/16 00:40; Start 07/29/16 at 01:00 Lorazepam (Ativan) 0.05 mg PRN Q4HRS PRN IV ANXIETY / AGITATION; Start at 02:30; Stop 07/29/16 at 02:48; Status DC Lorazepam (Ativan) 0.5 mg PRN Q4HRS PRN IV ANXIETY / AGITATION Last administered on 07/29/16 03:18; Start 07/29/16 at 03:00 Acetaminophen (Tylenol) 650 mg PRN Q4HRS PRN RI MILD PAIN / TEMP; Start at 08:30 Ketorolac Tromethamine (Toradol) 30 mg PRN Q6HRS PRN IV PAIN/FEVER Last administered on 07/30/16 00:50; Start 07/29/16 at 08:30; Stop 07/30/16 at 13:01 ; Status DC Pantoprazole Sodium 40 mg 40 mg DAILYAC IVP Last administered on 08/07/16 07: 49; Start 07/29/16 at 09:00 Sodium Chloride 1,000 ml @ 45 mls/hr [id number] IV Last administered on 09:17; Start 07/29/16 at 08:45; Stop 07/31/16 at 15:01; Status DC Sodium Chloride/ Sodium Acetate/ Potassium Chloride/ Potassium Acetate/ Potassium Phosphate/ Magnesium Sulfate/ Multivitamins/ Minerals/Chromium/ Copper /Manganese/ Seleni/Zn/Total Parenteral Nutrition/Amino Acids/Dextrose/ Fat Emulsion Intravenous (Sodium Chloride/ Potass... 1,920 ml @ 80 mls/hr TPN CONT IV Last administered on 07/29/16 22:06; Start 07/29/16 at 22:00; Stop at 21:59; Status DC Lidocaine/Sodium Bicarbonate 20 ml 20 ml STK-MED ONCE IJ ; Start 07/29/16 at 13: 13; Stop 07/29/16 at 13:14; Status DC Heparin Sodium/ Sodium Chloride 500 ml @ As Directed STK-MED ONCE .ROUTE ; Start 07/29/16 at 13:13; Stop 07/29/16 at 13:14; Status DC Lidocaine/ Epinephrine (Xylocaine 1%-Epi 1:100,000) 20 ml STK-MED ONCE .ROUTE ; Start 07/29/16 at 13:22; Stop 07/29/16 at 13:23; Status DC Midazolam HCl (Versed) 5 mg STK-MED ONCE .ROUTE ; Start 07/29/16 at 13:32; Stop 07/29/16 at 13:33; Status DC Fentanyl Citrate (Fentanyl 5ml Vial) 250 mcg STK-MED ONCE .ROUTE ; Start at 13:32; Stop 07/29/16 at 13:33; Status DC Heparin Sodium/ Sodium Chloride 1,000 unit 1X ONCE IART Last administered on 13:45; Start 07/29/16 at 13:45; Stop 07/29/16 at 13:48; Status DC Midazolam HCl (Versed) 5 mg 1X ONCE IV Last administered on 07/29/16 13:45; Start 07/29/16 at 13:45; Stop 07/29/16 at 13:48; Status DC Fentanyl Citrate (Fentanyl 5ml Vial) 250 mcg 1X ONCE IV Last administered on 13:45; Start 07/29/16 at 13:45; Stop 07/29/16 at 13:48; Status DC Lidocaine/ Epinephrine 20 ml 20 ml 1X ONCE IJ Last administered on 07/29/16 13:45; Start 07/29/16 at 13:45; Stop 07/29/16 at 13:48; Status DC Sodium Chloride 220 meq/Sodium Acetate 90 meq/ Potassium Chloride 15 meq/ Potassium Acetate 30 meq/Potassium Phosphate 10 mmol/ Magnesium Sulfate 45 meq/ Multivitamins/ Minerals 10 ml/ Chromium/Copper/ Manganese/Seleni/ Zn 1 ml/Total Parenteral Nutrition/Amino Acids/Dextrose/ Fat Emuls... 1,920 ml @ 80 mls/hr TPN CONT IV ; Start 07/30/16 at 22:00; Stop 07/31/16 at 21:59; Status DC Norepinephrine Bitartrate 8 mg/ Sodium Chloride 258 ml @ 1.93 mls/hr 1X ONCE IV Last administered on 07/30/16 11:17; Start 07/30/16 at 11:15; Stop at 15:43; Status DC Norepinephrine Bitartrate/Sodium Chloride (Levophed Vial/ Iv Sodium Chloride 0.9 % 250ml) 258 ml @ 0 mls/hr CONT PRN IV SEE I/O RECORD Last administered on 08/02 19:54; Start 07/30/16 at 11:15; Stop 08/04/16 at 09:29; Status DC Furosemide 60 mg 60 mg 1X ONCE IVP Last administered on 07/30/16 11:14; Start 07/30/16 at 11:15; Stop 07/30/16 at 11:16; Status DC Sodium Chloride 500 ml @ 500 mls/hr Q1H IV Last administered on 07/30/16 17: 04; Start 07/30/16 at 14:30; Stop 07/30/16 at 15:29; Status DC Albumin Human 100 ml @ 100 mls/hr Q8HRS IV Last administered on 07/31/16 05: 37; Start 07/30/16 at 14:30; Stop 07/31/16 at 06:59; Status DC Furosemide/Sodium Chloride (Lasix Drip/Iv Sodium Chloride 0.9% 100ml) 100 ml @ 0 mls/hr CONT PRN IV SEE I/O RECORD Last administered on 07/31/16 03:17; Start 07/30/16 at 14:30; Stop 08/01/16 at 13:19; Status DC Ondansetron HCl (Zofran) 8 mg PRN Q8HRS PRN IV NAUSEA/VOMITING Last administered on 07/30/16 14:38; Start 07/30/16 at 14:30 Sodium Bicarbonate 50 meq 50 meq 1X ONCE IV Last administered on 07/30/16 14: 43; Start 07/30/16 at 14:30; Stop 07/30/16 at 14:31; Status DC Heparin Sodium/ Sodium Chloride 500 ml @ As Directed STK-MED ONCE .ROUTE ; Start 07/30/16 at 14:49; Stop 07/30/16 at 14:50; Status DC Lidocaine HCl 20 ml STK-MED ONCE .ROUTE ; Start 07/30/16 at 14:49; Stop at 14:50; Status DC Midazolam HCl (Versed) 2 mg STK-MED ONCE .ROUTE ; Start 07/30/16 at 15:19; Stop 07/30/16 at 15:20; Status DC Heparin Sodium/ Sodium Chloride 1,000 unit 1X ONCE IART Last administered on 15:44; Start 07/30/16 at 15:45; Stop 07/30/16 at 15:46; Status DC Midazolam HCl (Versed) 1.5 mg 1X ONCE IV Last administered on 07/30/16 15:44 ; Start 07/30/16 at 15:45; Stop 07/30/16 at 15:46; Status DC Lidocaine HCl 20 ml 1X ONCE IJ Last administered on 07/30/16 15:44; Start at 15:45; Stop 07/30/16 at 15:46; Status DC Heparin Sodium (Porcine) 91547 unit 10,000 unit STK-MED ONCE .ROUTE ; Start at 15:54; Stop 07/30/16 at 15:55; Status DC Fentanyl Citrate 30 ml @ 0 mls/hr CONT PRN PRN IV PROTOCOL Last administered on 08/07/16 06:29; Start 07/30/16 at 16:45 Sodium Bicarbonate/ Dextrose 1,150 ml @ 125 mls/hr 1X ONCE IV Last administered on 07/30/16 18:34; Start 07/30/16 at 17:30; Stop 07/31/16 at 02:41 ; Status DC Succinylcholine Chloride 200 mg 200 mg STK-MED ONCE .ROUTE ; Start 07/30/16 at 19:47; Stop 07/30/16 at 19:48; Status DC Propofol 100 ml @ As Directed STK-MED ONCE IV ; Start 07/30/16 at 19:48; Stop 07/30/16 at 19:49; Status DC Midazolam HCl (Versed 100mg/ 100ml Premix) 100 ml @ 0 mls/hr CONT PRN IV SEE I/ O RECORD Last administered on 08/03/16 12:18; Start 07/30/16 at 21:15 Sodium Bicarbonate 50 meq 50 meq 1X ONCE IV Last administered on 07/30/16 22: 15; Start 07/30/16 at 22:30; Stop 07/30/16 at 22:31; Status DC Dopamine HCl/ Dextrose 250 ml @ 11.513 mls/ hr CONT PRN IV SEE I/O RECORD Last administered on 07/31/16 20:16; Start 07/30/16 at 22:15; Stop 08/04/16 at 09:29; Status DC Sodium Bicarbonate/ Dextrose 1,150 ml @ 125 mls/hr Q9H12M IV Last administered on 08/01/16 09:30; Start 07/31/16 at 03:00; Stop 08/01/16 at 13:19 ; Status DC Propofol (Diprivan) 1,000 mg STK-MED ONCE IV ; Start 07/30/16 at 20:00; Stop at 08:16; Status DC Succinylcholine Chloride 200 mg 200 mg STK-MED ONCE .ROUTE ; Start 07/30/16 at 20:00; Stop 07/31/16 at 08:16; Status DC Tigecycline 50 mg/ Sodium Chloride 50 ml @ 100 mls/hr Q12HR IV Last administered on 08/04/16 09:01; Start 07/31/16 at 21:00; Stop 08/04/16 at 10:00 ; Status DC Tigecycline/ Sodium Chloride (Tygacil/Iv Sodium Chloride 0.9% 100ml) 100 ml @ 200 mls/hr 1X ONCE IV Last administered on 07/31/16 09:22; Start 07/31/16 at 09:00; Stop 07/31/16 at 09:29; Status DC Darbepoetin Sarbjit 60 mcg 60 mcg WEEKLYHS SQ Last administered on 07/31/16 21:09 ; Start 07/31/16 at 21:00 Albumin Human 100 ml @ 100 mls/hr 1X ONCE IV Last administered on 07/31/16 11:40; Start 07/31/16 at 11:15; Stop 07/31/16 at 12:14; Status DC Albumin Human 100 ml @ 100 mls/hr 1X ONCE IV Last administered on 07/31/16 12:03; Start 07/31/16 at 11:15; Stop 07/31/16 at 12:14; Status DC Sodium Chloride (Iv Sodium Chloride 0.9% 1000ml Bag) 1,000 ml @ 1,000 mls/hr Q1H PRN IV hypotension; Start 07/31/16 at 11:33; Stop 07/31/16 at 17:32; Status DC Info (PHARMACY MONITORING -- do not chart) 1 each PRN DAILY PRN MC SEE COMMENTS ; Start 07/31/16 at 11:45 Info (PHARMACY MONITORING -- do not chart) 1 each PRN DAILY PRN MC SEE COMMENTS ; Start 07/31/16 at 11:45; Status UNV Hydrocortisone Sodium Succinate (Solu-Cortef) 100 mg Q8HRS IV Last administered on 08/04/16 06:16; Start 08/01/16 at 07:00; Stop 08/04/16 at 09:29 ; Status DC Albuterol/ Ipratropium (Duoneb) 3 ml RTQID NEB Last administered on 08/07/16 08:18; Start 08/01/16 at 08:00 Albuterol/ Ipratropium 3 ml 3 ml STK-MED ONCE .ROUTE Last administered on 07:34; Start 08/01/16 at 06:59; Stop 08/01/16 at 07:00; Status DC Sodium Chloride 1,000 ml @ 1,000 mls/hr Q1H PRN IV hypotension; Start 08/01/16 at 06:57; Stop 08/01/16 at 12:56; Status DC Albumin Human (Albuminar) 200 ml @ 200 mls/hr 1X PRN PRN IV Hypotension; Start 08/01/16 at 07:00; Stop 08/01/16 at 12:59; Status DC Info (PHARMACY MONITORING -- do not chart) 1 each PRN DAILY PRN MC SEE COMMENTS ; Start 08/01/16 at 07:00; Status UNV Info 1 each 1 each PRN DAILY PRN MC SEE COMMENTS Last administered on 12:13; Start 08/01/16 at 13:30 Sodium Chloride 220 meq/Sodium Acetate 90 meq/ Potassium Chloride 15 meq/ Potassium Acetate 30 meq/Potassium Phosphate 10 mmol/ Magnesium Sulfate 45 meq/ Multivitamins/ Minerals 10 ml/ Chromium/Copper/ Manganese/Seleni/ Zn 1 ml/Total Parenteral Nutrition/Amino Acids/Dextrose/ Fat Emuls... 1,920 ml @ 80 mls/hr TPN CONT IV Last administered on 08/01/16 21:56; Start 08/01/16 at 22:00; Stop 08/02/16 at 21:59; Status DC Potassium Chloride (KCl Premix 20meq) 50 ml @ 50 mls/hr Q1H IV Last administered on 08/01/16 19:05; Start 08/01/16 at 17:00; Stop 08/01/16 at 18:59 ; Status DC Insulin Aspart 0-6 UNITS TIDWMEALS SQ Last administered on 08/02/16 11:33; Start 08/02/16 at 12:00; Stop 08/02/16 at 14:34; Status DC Sodium Chloride 220 meq/Sodium Acetate 90 meq/ Potassium Chloride 15 meq/ Potassium Acetate 30 meq/Magnesium Sulfate 45 meq/ Multivitamins/ Minerals 10 ml / Chromium/Copper/ Manganese/Seleni/ Zn 1 ml/Total Parenteral Nutrition/Amino Acids/Dextrose/ Fat Emulsion Intravenous 1,920 ml @ 80 mls/hr TPN CONT IV Last administered on 08/02/16 21:34; Start 08/02/16 at 22:00; Stop 08/03/16 at 21:59; Status DC Levofloxacin/ Dextrose 150 ml @ 100 mls/hr 1X ONCE IV Last administered on 14:35; Start 08/02/16 at 14:00; Stop 08/02/16 at 15:29; Status DC Daptomycin/Sodium Chloride (Cubicin/Iv Sodium Chloride 0.9% 50ml) 50 ml @ 100 mls/hr ONCE ONCE IV Last administered on 08/02/16 14:34; Start 08/02/16 at 15 :00; Stop 08/02/16 at 15:29; Status DC Insulin Aspart 0-6 UNITS Q6HRS SQ Last administered on 08/06/16 23:37; Start 08/02/16 at 18:00 Sodium Chloride (Iv Sodium Chloride 0.9% 1000ml Bag) 1,000 ml @ 1,000 mls/hr Q1H PRN IV hypotension; Start 08/03/16 at 07:26; Stop 08/03/16 at 13:25; Status DC Diphenhydramine HCl (Benadryl) 25 mg 1X PRN PRN IV ITCHING; Start 08/03/16 at 07:30; Stop 08/04/16 at 07:29; Status DC Diphenhydramine HCl (Benadryl) 25 mg 1X PRN PRN IV ITCHING; Start 08/03/16 at 07:30; Stop 08/04/16 at 07:29; Status DC Sodium Chloride (Normal Saline Flush) 10 ml 1X PRN PRN IV AP catheter pack; Start 08/03/16 at 07:30; Stop 08/04/16 at 07:29; Status DC Sodium Chloride 10 ml 10 ml 1X PRN PRN IV TABLE [employer] catheter pack; Start 08/03/16 at 07:30; Stop 08/04/16 at 07:29; Status DC Sodium Chloride (Iv Sodium Chloride 0.9% 1000ml Bag) 1,000 ml @ 400 mls/hr Q2H30M PRN IV PATENCY; Start 08/03/16 at 07:26; Stop 08/03/16 at 19:25; Status DC Info 1 each 1 each PRN DAILY PRN MC SEE COMMENTS; Start 08/03/16 at 07:30; Status UNV Albumin Human 200 ml @ 200 mls/hr Q2HR IV Last administered on 08/03/16 10:00 ; Start 08/03/16 at 08:44; Stop 08/03/16 at 10:59; Status DC Sodium Chloride 160 meq/Sodium Acetate 60 meq/ Potassium Chloride 15 meq/ Potassium Acetate 30 meq/Magnesium Sulfate 25 meq/ Multivitamins/ Minerals 10 ml / Chromium/Copper/ Manganese/Seleni/ Zn 1 ml/Total Parenteral Nutrition/Amino Acids/Dextrose/ Fat Emulsion Intravenous 1,500 ml @ 62.5 mls/hr TPN CONT IV Last administered on 08/03/16 22:52; Start 08/03/16 at 22:00; Stop 08/04/16 at 21:59; Status DC Levofloxacin/ Dextrose 100 ml @ 100 mls/hr 1X ONCE IV Last administered on 10:50; Start 08/04/16 at 07:30; Stop 08/04/16 at 08:30; Status DC Daptomycin 450 mg/ Sodium Chloride 50 ml @ 100 mls/hr ONCE ONCE IV Last administered on 08/04/16 09:55; Start 08/04/16 at 08:00; Stop 08/04/16 at 08:30 ; Status DC Tigecycline/ Sodium Chloride (Tygacil/Iv Sodium Chloride 0.9% 50ml) 50 ml @ 100 mls/hr Q12HR IV Last administered on 08/07/16 07:50; Start 08/04/16 at 21: 00 Hydrocortisone Sodium Succinate 50 mg 50 mg Q8HRS IV Last administered on 05:39; Start 08/04/16 at 14:00; Stop 08/05/16 at 11:12; Status DC Furosemide 100 mg/ Sodium Chloride 100 ml @ 0 mls/hr CONT PRN IV SEE I/O RECORD Last administered on 08/06/16 14:15; Start 08/04/16 at 11:30 Sodium Chloride 160 meq/Sodium Acetate 60 meq/ Potassium Chloride 15 meq/ Potassium Acetate 30 meq/Magnesium Sulfate 25 meq/ Multivitamins/ Minerals 10 ml / Chromium/Copper/ Manganese/Seleni/ Zn 1 ml/Total Parenteral Nutrition/Amino Acids/Dextrose/ Fat Emulsion Intravenous 1,500 ml @ 62.5 mls/hr TPN CONT IV Last administered on 08/04/16 21:45; Start 08/04/16 at 22:00; Stop 08/06/16 at 08:48; Status DC Sodium Chloride 1,000 ml @ 1,000 mls/hr Q1H PRN IV hypotension; Start 08/04/16 at 12:00; Stop 08/04/16 at 17:59; Status DC Sodium Chloride (Iv Sodium Chloride 0.9% 1000ml Bag) 1,000 ml @ 400 mls/hr Q2H30M PRN IV PATENCY; Start 08/04/16 at 12:00; Stop 08/04/16 at 23:59; Status DC Info 1 each 1 each PRN DAILY PRN MC SEE COMMENTS; Start 08/04/16 at 16:30; Status UNV Levofloxacin/ Dextrose 100 ml @ 100 mls/hr 1X ONCE IV Last administered on 14:27; Start 08/05/16 at 14:00; Stop 08/05/16 at 14:59; Status DC Daptomycin/Sodium Chloride (Cubicin/Iv Sodium Chloride 0.9% 50ml) 50 ml @ 100 mls/hr 1X ONCE IV Last administered on 08/05/16 14:27; Start 08/05/16 at 14: 00; Stop 08/05/16 at 14:29; Status DC Heparin Sodium (Porcine) 10,000 unit STK-MED ONCE .ROUTE ; Start 08/05/16 at 09: 35; Stop 08/05/16 at 09:36; Status DC Lidocaine/Sodium Bicarbonate 20 ml 20 ml STK-MED ONCE IJ ; Start 08/05/16 at 09: 36; Stop 08/05/16 at 09:37; Status DC Heparin Sodium/ Sodium Chloride 500 ml @ As Directed STK-MED ONCE .ROUTE ; Start 08/05/16 at 09:36; Stop 08/05/16 at 09:37; Status DC Lidocaine/Sodium Bicarbonate (Buffered Lidocaine 1%) 2 ml 1X ONCE IJ Last administered on 08/05/16 10:04; Start 08/05/16 at 10:00; Stop 08/05/16 at 10:02 ; Status DC Heparin Sodium/ Sodium Chloride 60 unit 1X ONCE IV Last administered on 10:04; Start 08/05/16 at 10:00; Stop 08/05/16 at 10:02; Status DC Heparin Sodium (Porcine) 2,800 unit 1X ONCE INT CAT Last administered on 10:04; Start 08/05/16 at 10:00; Stop 08/05/16 at 10:02; Status DC Info (PHARMACY MONITORING -- do not chart) 1 each PRN DAILY PRN MC SEE COMMENTS ; Start 08/05/16 at 10:30; Stop 08/05/16 at 10:30; Status DC Info (PHARMACY MONITORING -- do not chart) 1 each PRN DAILY PRN MC SEE COMMENTS ; Start 08/05/16 at 10:30; Stop 08/05/16 at 10:30; Status DC Hydrocortisone Sodium Succinate 50 mg 50 mg BID IV Last administered on 07:49; Start 08/05/16 at 21:00 Sodium Chloride 160 meq/Sodium Acetate 60 meq/ Potassium Chloride 15 meq/ Potassium Acetate 30 meq/Magnesium Sulfate 25 meq/ Multivitamins/ Minerals 10 ml / Chromium/Copper/ Manganese/Seleni/ Zn 1 ml/Total Parenteral Nutrition/Amino Acids/Dextrose/ Fat Emulsion Intravenous 1,500 ml @ 62.5 mls/hr TPN CONT IV Last administered on 08/05/16 22:04; Start 08/05/16 at 22:00; Stop 08/06/16 at 21:59; Status DC Daptomycin 500 mg/ Sodium Chloride 50 ml @ 100 mls/hr Q24H IV Last administered on 08/06/16 14:09; Start 08/06/16 at 14:00 Sodium Chloride (Iv Sodium Chloride 0.9% 1000ml Bag) 1,000 ml @ 1,000 mls/hr Q1H PRN IV hypotension; Start 08/06/16 at 08:21; Stop 08/06/16 at 14:20; Status DC Diphenhydramine HCl (Benadryl) 25 mg 1X PRN PRN IV ITCHING; Start 08/06/16 at 08:30; Stop 08/07/16 at 08:29; Status DC Diphenhydramine HCl (Benadryl) 25 mg 1X PRN PRN IV ITCHING; Start 08/06/16 at 08:30; Stop 08/07/16 at 08:29; Status DC Sodium Chloride (Normal Saline Flush) 10 ml 1X PRN PRN IV AP catheter pack; Start 08/06/16 at 08:30; Stop 08/07/16 at 08:29; Status DC Sodium Chloride 10 ml 10 ml 1X PRN PRN IV TABLE [employer] catheter pack; Start 08/06/16 at 08:30; Stop 08/07/16 at 08:29; Status DC Sodium Chloride (Iv Sodium Chloride 0.9% 1000ml Bag) 1,000 ml @ 400 mls/hr Q2H30M PRN IV PATENCY; Start 08/06/16 at 08:21; Stop 08/06/16 at 20:20; Status DC Info 1 each 1 each PRN DAILY PRN MC SEE COMMENTS; Start 08/06/16 at 08:30; Status UNV Albumin Human 200 ml @ 200 mls/hr 1X STAT IV Last administered on 08/06/16 10:09; Start 08/06/16 at 09:52; Stop 08/06/16 at 10:51; Status DC Sodium Chloride/ Sodium Acetate/ Potassium Chloride/ Potassium Acetate/ Magnesium Sulfate/ Multivitamins/ Minerals/Chromium/ Copper/Manganese/ Seleni/Zn /Total Parenteral Nutrition/Amino Acids/Dextrose/ Fat Emulsion Intravenous ( Sodium Chloride/ Infuvite Adult/ Multitrace-5 Conc/ Tpn - Tpn Flu... 1,500 ml @ 62.5 mls/hr TPN CONT IV Last administered on 08/06/16 21:57; Start at 22:00; Stop 08/07/16 at 21:59 Darbepoetin Sarbjit 60 mcg 60 mcg WEEKLYHS SQ ; Start 08/07/16 at 21:00; Status UNV Potassium Chloride (KCl Premix 20meq) 50 ml @ 50 mls/hr Q1H IV Last administered on 08/07/16 08:09; Start 08/07/16 at 08:00; Stop 08/07/16 at 09:59 Active Scripts Active Dilaudid (Hydromorphone Hcl) 4 Mg Tablet 4 Mg PO Q6HRS Phenazopyridine Hcl 200 Mg Tablet 200 Mg PO PRN TID PRN FENTANYL 50mcg/hr (Fentanyl) 1 Each Patch.td72 1 Patch TD Q3DAYS Anaspaz (Hyoscyamine Sulfate) 0.125 Mg Tab.rapdis 0.125 Mg PO Q6HRS PRN Cefpodoxime Proxetil 200 Mg Tablet 200 Mg PO BID Sertraline Hcl 50 Mg Tablet 100 Mg PO DAILY 30 Days Protonix (Pantoprazole Sodium) 40 Mg Tablet.dr 1 Tab PO DAILY Zinc Oxide 56.7 Gm Oint...g. 1 Sang TP BID Lidocaine 35.44 Gm Oint...g. 1 Sang TP BID Ondansetron Odt (Ondansetron) 4 Mg Tab.rapdis 8 Mg PO PRN Q8HRS PRN Gas-X (Simethicone) 80 Mg Tab.chew 80 Mg PO PRN QID PRN Reported Lorazepam 0.5 Mg Tablet 0.5 Mg PO PRN BID PRN Vitals/I & O Vital Sign - Last 24 Hours 08/06/16 08/06/16 08/06/16 08/06/16 10:00 11:00 11:04 12:00 Temp 97.4 97.4 Pulse 110 102 102 Resp 28 33 30 B/P 95/75 110/86 104/87 Pulse Ox 99 99 100 100 O2 Delivery Ventilator Ventilator Ventilator Ventilator 08/06/16 08/06/16 08/06/16 08/06/16 12:00 12:43 12:48 12:58 Temp 97.8 98.1 98.2 97.8 98.1 98.2 Pulse 97 98 95 Resp B/P 123/82 89/61 107/75 O2 Delivery Mechanical Ventilator 08/06/16 08/06/16 08/06/16 08/06/16 13:00 13:01 13:06 13:15 Temp 98.2 97.6 97.6 98.2 97.6 97.6 Pulse 101 100 95 87 Resp B/P 103/79 97/59 102/62 102/62 Pulse Ox 100 O2 Delivery Ventilator 08/06/16 08/06/16 08/06/16 08/06/16 13:54 14:00 14:24 15:00 Temp 98.1 98.1 Pulse 98 84 Resp 24 23 22 B/P 124/63 137/71 Pulse Ox 100 99 99 99 O2 Delivery Ventilator Ventilator Ventilator Ventilator 08/06/16 08/06/16 08/06/16 08/06/16 16:00 16:00 16:15 17:00 Pulse 82 80 Resp 21 20 B/P 137/74 137/72 Pulse Ox 99 100 99 O2 Delivery Ventilator Mechanical Ventilator Ventilator Ventilator 08/06/16 08/06/16 08/06/16 08/06/16 18:00 19:00 19:35 20:00 Temp 97.6 97.8 97.6 97.8 Pulse 77 79 72 Resp 28 20 20 B/P 135/71 137/63 120/51 Pulse Ox 99 100 100 100 O2 Delivery Ventilator Ventilator Ventilator Ventilator 08/06/16 08/06/16 08/06/16 08/06/16 20:00 21:00 21:25 22:00 Pulse 72 71 Resp 20 20 B/P 116/56 124/59 Pulse Ox 100 100 100 O2 Delivery Mechanical Ventilator Ventilator Ventilator Ventilator 08/06/16 08/06/16 08/07/16 08/07/16 23:00 23:59 00:00 00:29 Temp 97.4 97.4 Pulse 65 67 Resp 20 20 B/P 122/69 140/59 Pulse Ox 100 100 100 O2 Delivery Ventilator Mechanical Ventilator Ventilator Ventilator 08/07/16 08/07/16 08/07/16 08/07/16 01:00 02:00 02:57 03:00 Pulse 81 66 68 Resp 20 20 20 B/P 157/74 144/66 140/76 Pulse Ox 100 100 100 100 O2 Delivery Ventilator Ventilator Ventilator Ventilator 08/07/16 08/07/16 08/07/16 08/07/16 03:50 04:00 05:00 05:15 Temp 97.4 97.4 Pulse 64 65 Resp 20 20 B/P 135/72 129/72 Pulse Ox 100 100 100 O2 Delivery Mechanical Ventilator Ventilator Ventilator Ventilator 08/07/16 06:00 Pulse 60 Resp 20 B/P 136/60 Pulse Ox 100 O2 Delivery Ventilator Intake and Output 08/06/16 08/06/16 08/07/16 15:00 23:00 07:00 Intake Total 234 ml 50 ml 978 ml Output Total 510 ml 257 ml 1189 ml Balance -276 ml -207 ml -211 ml MATT PALACIOS MD Aug 07, 2016 09:48
--- NOTE | 2016-08-07 10:28 | PDOC ---
PROGRESS NOTES Subjective Subjective alert and squeezed my hand. bilirubin is high and will order abdominal ultrasound and consult GI. labs reviewed. Objective Objective Vital Signs Date Time Temp Pulse Resp B/P Pulse Ox O2 Delivery O2 Flow Rate FiO2 08/07/16 10:04 100 Ventilator 08/07/16 06:00 60 20 136/60 08/07/16 04:00 97.4 97.4 08/04/16 03:55 50.0 Intake and Output 08/07/16 07:00 Intake Total 1262 ml Output Total 1956 ml Balance -694 ml IV Total 1028 ml Blood Product IV Normal Saline Flush 234 ml Output Urine Total 1506 ml Other 450 ml Physical Exam Abdomen: Soft Heart: Regular rate, Normal S1, Normal S2 Extremities: Other (2 plus edema arms) General: Alert HEENT: Atraumatic Lungs: Other (clear anteriorly) Neuro: Other (alert and nods her head to questions) Psych/Mental Status: Other (alert) Skin: No rashes Assessment Assessment Problems Medical Problems::ana glabrata fungemia with severe sepsis . off pressors acute hypoxic respiratory failure. intubated on ventilator metabolic encephalopathy improved acute kidney injury due to ATN from sepsis. . bilateral lung infiltrates resolved disseminated intravascular coagulation thrombocytopenia due to platelet antibody and sepsis picc associated fungemia with sepsis . picc removed 4. Enterocutaneous fistula. 5. Enterovesical fistula. 6. Anemia of chronic disease. 7. Moderately severe protein calorie malnutrition. elevated bilirubin (1) Abdominal pain Status: Acute (2) Enterocutaneous fistula Status: Acute (3) Sepsis Status: Acute (4) Urinary tract infection Status: Acute (5) UTI (urinary tract infection) Status: Acute Plan Plan of Care abdominal ultrasound consult dr. simon continue iv lasix drip continue iv micafungin and tygacil and daptomycin decrease iv hydrocortisone hemodialysis per night worker continue TPN Comment Review of Relevant I have reviewed the following items lucila (where applicable) has been applied. Labs Laboratory Tests Test 08/05/16 13:15 08/05/16 13:17 08/05/16 23:50 08/06/16 05:23 Prothrombin Time 16.1SEC (11.7-14.0) Prothromb Time International Ratio 1.4 (0.8-1.1) Fibrinogen 102mg/dL (200-440) Glucose (Fingerstick) 133mg/dL (70-99) 153mg/dL (70-99) 175mg/dL (70-99) Test 08/06/16 05:25 08/06/16 08:00 08/06/16 14:04 08/06/16 23:35 White Blood Count 8.2x10^3/uL (4.0-11.0) Red Blood Count 3.24x10^6/uL (3.50-5.40) Hemoglobin 8.2g/dL (12.0-15.5) Hematocrit 25.1% (36.0-47.0) Mean Corpuscular Volume 78fL (79-100) Mean Corpuscular Hemoglobin 25pg (25-35) Mean Corpuscular Hemoglobin Concent 33g/dL (31-37) Red Cell Distribution Width 20.4% (11.5-14.5) Platelet Count 49x10^3/uL (140-400) Neutrophils (%) (Auto) 81% (31-73) Lymphocytes (%) (Auto) 12% (24-48) Monocytes (%) (Auto) 7% (0-9) Eosinophils (%) (Auto) 0% (0-3) Basophils (%) (Auto) 0% (0-3) Neutrophils # (Auto) 6.6x10^3uL (1.8-7.7) Lymphocytes # (Auto) 1.0x10^3/uL (1.0-4.8) Monocytes # (Auto) 0.6x10^3/uL (0.0-1.1) Eosinophils # (Auto) 0.0x10^3/uL (0.0-0.7) Basophils # (Auto) 0.0x10^3/uL (0.0-0.2) Platelet Estimate Decreased (ADEQUATE) Hypochromasia Slight Anisocytosis Mod Fibrinogen 68mg/dL (200-440) Sodium Level 145mmol/L (136-145) Potassium Level 3.1mmol/L (3.5-5.1) Chloride Level 105mmol/L (98-107) Carbon Dioxide Level 27mmol/L (21-32) Anion Gap 13 (6-14) Blood Urea Nitrogen 72mg/dL (7-20) Creatinine 1.4mg/dL (0.6-1.0) Estimated GFR (Cockcroft-Gault) 46.3 Glucose Level 177mg/dL (70-99) Lactic Acid Level 2.0mmol/L (0.4-2.0) Calcium Level 8.9mg/dL (8.5-10.1) Phosphorus Level 4.8mg/dL (2.6-4.7) Magnesium Level 2.6mg/dL (1.8-2.4) O2 Saturation 99% (92-99) Arterial Blood pH 7.51 (7.35-7.45) Arterial Blood pCO2 at Patient Temp 30mmHg (35-46) Arterial Blood pO2 at Patient Temp 208mmHg (65-108) Arterial Blood HCO3 24mmol/L (21-28) Arterial Blood Base Excess 1mmol/L (-3-3) FiO2 40% Glucose (Fingerstick) 148mg/dL (70-99) 201mg/dL (70-99) Test 08/07/16 06:07 08/07/16 06:10 Glucose (Fingerstick) 140mg/dL (70-99) White Blood Count 6.5x10^3/uL (4.0-11.0) Red Blood Count 2.88x10^6/uL (3.50-5.40) Hemoglobin 7.3g/dL (12.0-15.5) Hematocrit 22.3% (36.0-47.0) Mean Corpuscular Volume 77fL (79-100) Mean Corpuscular Hemoglobin 25pg (25-35) Mean Corpuscular Hemoglobin Concent 33g/dL (31-37) Red Cell Distribution Width 20.0% (11.5-14.5) Platelet Count 40x10^3/uL (140-400) Neutrophils (%) (Auto) 81% (31-73) Lymphocytes (%) (Auto) 13% (24-48) Monocytes (%) (Auto) 6% (0-9) Eosinophils (%) (Auto) 0% (0-3) Basophils (%) (Auto) 0% (0-3) Neutrophils # (Auto) 5.2x10^3uL (1.8-7.7) Lymphocytes # (Auto) 0.9x10^3/uL (1.0-4.8) Monocytes # (Auto) 0.4x10^3/uL (0.0-1.1) Eosinophils # (Auto) 0.0x10^3/uL (0.0-0.7) Basophils # (Auto) 0.0x10^3/uL (0.0-0.2) Prothrombin Time 17.3SEC (11.7-14.0) Prothromb Time International Ratio 1.5 (0.8-1.1) Fibrinogen 121mg/dL (200-440) Sodium Level 145mmol/L (136-145) Potassium Level 2.8mmol/L (3.5-5.1) Chloride Level 104mmol/L (98-107) Carbon Dioxide Level 31mmol/L (21-32) Anion Gap 10 (6-14) Blood Urea Nitrogen 72mg/dL (7-20) Creatinine 1.2mg/dL (0.6-1.0) Estimated GFR (Cockcroft-Gault) 55.3 Glucose Level 149mg/dL (70-99) Lactic Acid Level 1.5mmol/L (0.4-2.0) Calcium Level 9.1mg/dL (8.5-10.1) Total Bilirubin 5.5mg/dL (0.2-1.0) Direct Bilirubin 2.9mg/dL (0.0-0.2) Aspartate Amino Transf (AST/SGOT) 37U/L (15-37) Alanine Aminotransferase (ALT/SGPT) 44U/L (14-59) Alkaline Phosphatase 155U/L (46-116) Total Protein 6.3g/dL (6.4-8.2) Albumin 3.2g/dL (3.4-5.0) Laboratory Tests Test 08/06/16 14:04 08/06/16 23:35 08/07/16 06:07 08/07/16 06:10 Glucose (Fingerstick) 148mg/dL (70-99) 201mg/dL (70-99) 140mg/dL (70-99) White Blood Count 6.5x10^3/uL (4.0-11.0) Red Blood Count 2.88x10^6/uL (3.50-5.40) Hemoglobin 7.3g/dL (12.0-15.5) Hematocrit 22.3% (36.0-47.0) Mean Corpuscular Volume 77fL (79-100) Mean Corpuscular Hemoglobin 25pg (25-35) Mean Corpuscular Hemoglobin Concent 33g/dL (31-37) Red Cell Distribution Width 20.0% (11.5-14.5) Platelet Count 40x10^3/uL (140-400) Neutrophils (%) (Auto) 81% (31-73) Lymphocytes (%) (Auto) 13% (24-48) Monocytes (%) (Auto) 6% (0-9) Eosinophils (%) (Auto) 0% (0-3) Basophils (%) (Auto) 0% (0-3) Neutrophils # (Auto) 5.2x10^3uL (1.8-7.7) Lymphocytes # (Auto) 0.9x10^3/uL (1.0-4.8) Monocytes # (Auto) 0.4x10^3/uL (0.0-1.1) Eosinophils # (Auto) 0.0x10^3/uL (0.0-0.7) Basophils # (Auto) 0.0x10^3/uL (0.0-0.2) Prothrombin Time 17.3SEC (11.7-14.0) Prothromb Time International Ratio 1.5 (0.8-1.1) Fibrinogen 121mg/dL (200-440) Sodium Level 145mmol/L (136-145) Potassium Level 2.8mmol/L (3.5-5.1) Chloride Level 104mmol/L (98-107) Carbon Dioxide Level 31mmol/L (21-32) Anion Gap 10 (6-14) Blood Urea Nitrogen 72mg/dL (7-20) Creatinine 1.2mg/dL (0.6-1.0) Estimated GFR (Cockcroft-Gault) 55.3 Glucose Level 149mg/dL (70-99) Lactic Acid Level 1.5mmol/L (0.4-2.0) Calcium Level 9.1mg/dL (8.5-10.1) Total Bilirubin 5.5mg/dL (0.2-1.0) Direct Bilirubin 2.9mg/dL (0.0-0.2) Aspartate Amino Transf (AST/SGOT) 37U/L (15-37) Alanine Aminotransferase (ALT/SGPT) 44U/L (14-59) Alkaline Phosphatase 155U/L (46-116) Total Protein 6.3g/dL (6.4-8.2) Albumin 3.2g/dL (3.4-5.0) Microbiology 08/01/16 Blood Culture - Final, Complete NO GROWTH AFTER 5 DAYS 07/15/16 Urine Culture - Final, Complete 07/15/16 Urine Culture Result 1 (ROYA) - Final, Complete 07/15/16 Urine Culture Result 2 (ROYA) - Final, Complete 07/15/16 Antimicrobic Susceptibility - Final, Complete 07/29/16 Aerobic Culture - Final, Complete 07/29/16 Aerobic Culture Result 1 (ROYA) - Final, Complete Medications Current Medications Piperacillin Sod/ Tazobactam Sod/ Sodium Chloride (Zosyn/Iv Sodium Chloride 0.9 % 100ml) 100 ml @ 200 mls/hr 1X ONCE IV Last administered on 07/15/16 22:56; Start 07/15/16 at 22:00; Stop 07/15/16 at 22:29; Status DC Fentanyl Citrate 50 mcg 50 mcg PRN Q15MIN PRN IV PAIN GREATER THAN 3/10 Last administered on 07/16/16 00:30; Start 07/15/16 at 21:45; Stop 07/16/16 at 02:00; Status DC Sodium Chloride 1,000 ml @ 1,000 mls/hr 1X ONCE IV Last administered on 21:59; Start 07/15/16 at 22:00; Stop 07/15/16 at 22:59; Status DC Sodium Chloride (Iv Sodium Chloride 0.9% 500ml Bag) 500 ml @ 500 mls/hr 1X ONCE IV Last administered on 07/15/16 22:00; Start 07/15/16 at 22:00; Stop at 22:59; Status DC Ondansetron HCl (Zofran) 4 mg PRN Q8HRS PRN IV NAUSEA/VOMITING; Start 07/15/16 at 23:30; Stop 07/16/16 at 08:52; Status DC Fentanyl Citrate 50 mcg 50 mcg PRN Q2HR PRN IV SEVERE PAIN Last administered on 07/16/16 08:10; Start 07/15/16 at 23:30; Stop 07/16/16 at 08:52; Status DC Sodium Chloride (Iv Sodium Chloride 0.9% 1000ml Bag) 1,000 ml @ 150 mls/hr Q6H40M IV Last administered on 07/15/16 02:00; Start 07/15/16 at 23:45; Stop 07/16/16 at 08:52; Status DC Acetaminophen (Tylenol) 650 mg PRN Q4HRS PRN PO FEVER; Start 07/15/16 at 23:30; Stop 07/16/16 at 23:29; Status DC Info (Do NOT chart on this placeholder) 1 each PRN DAILY PRN MC NEEDS VERIFICATION; Start 07/16/16 at 03:00; Status Cancel Acetaminophen 650 mg 650 mg PRN Q4HRS PRN PO MILD PAIN / TEMP Last administered on 07/28/16 07:42; Start 07/16/16 at 08:45; Stop 07/29/16 at 08:33 ; Status DC Piperacillin Sod/ Tazobactam Sod 3.375 gm/Sodium Chloride 50 ml @ 100 mls/hr Q6HRS IV Last administered on 07/18/16 05:50; Start 07/16/16 at 10:00; Stop 07/18 at 13:28; Status DC Linezolid (Zyvox Premix) 300 ml @ 300 mls/hr Q12HR IV Last administered on 07/18 08:34; Start 07/16/16 at 10:00; Stop 07/18/16 at 13:28; Status DC Hydromorphone HCl (Dilaudid) 2 mg PRN Q4HRS PRN IV MODERATE PAIN Last administered on 07/28/16 23:33; Start 07/16/16 at 08:45 Hydromorphone HCl (Dilaudid) 4 mg PRN Q4HRS PRN IV SEVERE PAIN Last administered on 07/30/16 09:23; Start 07/16/16 at 08:45; Stop 07/31/16 at 15:01 ; Status DC Pantoprazole Sodium (Protonix) 40 mg DAILYAC PO Last administered on 07/27/16 11:11; Start 07/16/16 at 09:30; Stop 07/29/16 at 08:44; Status DC Hyoscyamine (Anaspaz) 0.125 mg Q6HRS PO Last administered on 07/20/16 05:20; Start 07/16/16 at 12:00; Stop 07/20/16 at 08:58; Status DC Phenazopyridine HCl (Pyridium) 200 mg TID PO Last administered on 07/20/16 08: 25; Start 07/16/16 at 09:30; Stop 07/20/16 at 08:58; Status DC Lorazepam (Ativan) 0.5 mg PRN BID PRN PO ANXIETY / AGITATION Last administered on 07/29/16 02:16; Start 07/16/16 at 08:45; Stop 07/31/16 at 15:01; Status DC Simethicone (Gas-X) 80 mg PRN Q4HRS PRN PO GAS / BLOATING Last administered on 07/24/16 22:30; Start 07/16/16 at 08:45; Stop 07/31/16 at 15:01; Status DC Zolpidem Tartrate 5 mg 5 mg PRN QHS PRN PO INSOMNIA Last administered on 23:14; Start 07/16/16 at 08:45; Stop 07/31/16 at 15:01; Status DC Potassium Chloride/Dextrose/ Sod Cl 1,000 ml @ 80 mls/hr [id number] IV Last administered on 07/16/16 10:54; Start 07/16/16 at 09:30; Stop 07/16/16 at 21:59; Status DC Fluconazole/ Sodium Chloride (Diflucan 200mg/ 100ml Premix) 100 ml @ 100 mls/ hr Q24H IV Last administered on 07/18/16 11:43; Start 07/16/16 at 11:00; Stop at 13:28; Status DC Info 1 each 1 each PRN DAILY PRN MC SEE COMMENTS Last administered on 12:41; Start 07/16/16 at 10:00; Stop 08/01/16 at 11:24; Status DC Sodium Chloride 220 meq/Sodium Acetate 90 meq/ Potassium Chloride 50 meq/ Potassium Acetate 15 meq/Potassium Phosphate 10 mmol/ Magnesium Sulfate 50 meq/ Calcium Gluconate 6 meq/ Multivitamins/ Minerals 10 ml/ Chromium/Copper/ Manganese/Seleni/ Zn 1 ml/Total Parenteral Nutrition/Amino Acids/Dextro... 1, 920 ml @ 80 mls/hr TPN CONT IV ; Start 07/16/16 at 22:00; Stop 07/16/16 at 22:00 ; Status DC Sodium Chloride/ Sodium Acetate/ Potassium Chloride/ Potassium Acetate/ Potassium Phosphate/ Magnesium Sulfate/ Calcium Gluconate/ Multivitamins/ Minerals/Chromium/ Copper/Manganese/ Seleni/Zn/Total Parenteral Nutrition/Amino Acids/Dextrose/ Fat Emulsion Intravenous (Sodium Chlori... 1,820 ml @ 75.833 mls/ hr TPN CONT IV Last administered on 07/16/16 21:03; Start 07/16/16 at 22: 00; Stop 07/17/16 at 21:59; Status DC Ondansetron HCl (Zofran) 4 mg PRN Q6HRS PRN IV NAUSEA/VOMITING Last administered on 07/21/16 08:48; Start 07/16/16 at 17:15; Stop 07/31/16 at 15:01; Status DC Diphenhydramine HCl (Benadryl) 25 mg PRN Q6HRS PRN PO ITCHING Last administered on 07/25/16 23:38; Start 07/16/16 at 17:45; Stop 07/31/16 at 15:01 ; Status DC Lidocaine (Xylocaine) 1 sang BID TP Last administered on 08/07/16 07:50; Start 07/17/16 at 09:00 Zinc Oxide 1 sang 1 sang BID TP Last administered on 08/07/16 07:50; Start at 09:30 Sodium Chloride/ Sodium Acetate/ Potassium Chloride/ Potassium Acetate/ Potassium Phosphate/ Magnesium Sulfate/ Calcium Gluconate/ Multivitamins/ Minerals/Chromium/ Copper/Manganese/ Seleni/Zn/Total Parenteral Nutrition/Amino Acids/Dextrose/ Fat Emulsion Intravenous (Sodium Chlori... 1,920 ml @ 80 mls/ hr TPN CONT IV Last administered on 07/17/16 22:13; Start 07/17/16 at 22:00; Stop 07/18/16 at 21:59; Status DC Furosemide 40 mg 40 mg 1X ONCE IVP Last administered on 07/18/16 11:43; Start 07/18/16 at 11:00; Stop 07/18/16 at 11:07; Status DC Sodium Chloride 220 meq/Sodium Acetate 90 meq/ Potassium Chloride 50 meq/ Potassium Acetate 15 meq/Potassium Phosphate 10 mmol/ Magnesium Sulfate 50 meq/ Calcium Gluconate 3 meq/ Multivitamins/ Minerals 10 ml/ Chromium/Copper/ Manganese/Seleni/ Zn 1 ml/Total Parenteral Nutrition/Amino Acids/Dextro... 1, 920 ml @ 80 mls/hr TPN CONT IV Last administered on 07/19/16 00:03; Start 07/18/16 at 22:00; Stop 07/19/16 at 21:59; Status DC Meropenem 1 gm/ Sodium Chloride 100 ml @ 200 mls/hr Q8HRS IV Last administered on 07/20/16 05:21; Start 07/18/16 at 14:00; Stop 07/20/16 at 11:25; Status DC Micafungin Sodium 100 mg/Dextrose 100 ml @ 100 mls/hr Q24H IV Last administered on 07/19/16 15:05; Start 07/18/16 at 14:00; Stop 07/20/16 at 11:25; Status DC Daptomycin/Sodium Chloride (Cubicin/Iv Sodium Chloride 0.9% 50ml) 50 ml @ 100 mls/hr Q24H IV Last administered on 07/19/16 16:56; Start 07/18/16 at 15:00; Stop 07/20/16 at 11:25; Status DC Alteplase, Recombinant (Cathflo) 2 mg 1X ONCE INT CAT Last administered on 07/19 06:24; Start 07/19/16 at 07:00; Stop 07/19/16 at 07:01; Status DC Gentamicin Sulfate 1 each 1 each PRN DAILY PRN MC SEE COMMENTS Last administered on 07/25/16 15:31; Start 07/19/16 at 12:15; Stop 07/25/16 at 16:14 ; Status DC Gentamicin Sulfate/Sodium Chloride (Iv Sodium Chloride 0.9% 100ml) 106.75 ml @ 106.75 mls/hr Q24H IV Last administered on 07/25/16 15:31; Start 07/19/16 at 13 :00; Stop 07/25/16 at 16:12; Status DC Gentamicin Sulfate 1 each 1 each 1X ONCE MC Last administered on 07/19/16 23: 00; Start 07/19/16 at 23:00; Stop 07/19/16 at 23:01; Status DC Sodium Chloride/ Sodium Acetate/ Potassium Chloride/ Potassium Acetate/ Potassium Phosphate/ Magnesium Sulfate/ Calcium Gluconate/ Multivitamins/ Minerals/Chromium/ Copper/Manganese/ Seleni/Zn/Total Parenteral Nutrition/Amino Acids/Dextrose/ Fat Emulsion Intravenous (Sodium Chlori... 1,920 ml @ 80 mls/ hr TPN CONT IV Last administered on 07/19/16 20:51; Start 07/19/16 at 22:00; Stop 07/20/16 at 21:59; Status DC Hyoscyamine (Anaspaz) 0.125 mg PRN Q6HRS PRN PO BLADDER SPASM; Start 07/20/16 at 09:00; Stop 07/31/16 at 15:01; Status DC Phenazopyridine HCl 200 mg 200 mg PRN TID PRN PO BLADDER SPASM Last administered on 07/21/16 20:14; Start 07/20/16 at 09:00; Stop 07/31/16 at 15:01; Status DC Linezolid 300 ml @ 300 mls/hr Q12HR IV Last administered on 07/25/16 09:02; Start 07/20/16 at 12:00; Stop 07/25/16 at 16:12; Status DC Sodium Chloride 220 meq/Sodium Acetate 90 meq/ Potassium Chloride 50 meq/ Potassium Acetate 15 meq/Potassium Phosphate 10 mmol/ Magnesium Sulfate 50 meq/ Calcium Gluconate 3 meq/ Multivitamins/ Minerals 10 ml/ Chromium/Copper/ Manganese/Seleni/ Zn 1 ml/Total Parenteral Nutrition/Amino Acids/Dextro... 1, 920 ml @ 80 mls/hr TPN CONT IV Last administered on 07/20/16 21:30; Start 07/20/16 at 22:00; Stop 07/21/16 at 21:59; Status DC Sodium Chloride/ Sodium Acetate/ Potassium Chloride/ Potassium Acetate/ Potassium Phosphate/ Magnesium Sulfate/ Multivitamins/ Minerals/Chromium/ Copper /Manganese/ Seleni/Zn/Total Parenteral Nutrition/Amino Acids/Dextrose/ Fat Emulsion Intravenous (Sodium Chloride/ Potass... 1,920 ml @ 80 mls/hr TPN CONT IV Last administered on 07/21/16 22:05; Start 07/21/16 at 22:00; Stop at 21:59; Status DC Alteplase, Recombinant 2 mg 2 mg PRN DAILY PRN INT CAT INFLAMMATION Last administered on 07/27/16 11:31; Start 07/21/16 at 15:00 Sodium Chloride 220 meq/Sodium Acetate 90 meq/ Potassium Chloride 50 meq/ Potassium Acetate 15 meq/Potassium Phosphate 10 mmol/ Magnesium Sulfate 50 meq/ Multivitamins/ Minerals 10 ml/ Chromium/Copper/ Manganese/Seleni/ Zn 1 ml/Total Parenteral Nutrition/Amino Acids/Dextrose/ Fat Emuls... 1,920 ml @ 80 mls/hr TPN CONT IV Last administered on 07/22/16 20:53; Start 07/22/16 at 22:00; Stop 07/23/16 at 21:59; Status DC Sodium Chloride/ Sodium Acetate/ Potassium Chloride/ Potassium Acetate/ Potassium Phosphate/ Magnesium Sulfate/ Multivitamins/ Minerals/Chromium/ Copper /Manganese/ Seleni/Zn/Total Parenteral Nutrition/Amino Acids/Dextrose/ Fat Emulsion Intravenous (Sodium Chloride/ Potass... 1,920 ml @ 80 mls/hr TPN CONT IV Last administered on 07/23/16 21:16; Start 07/23/16 at 22:00; Stop 07/24 at 21:59; Status DC Gentamicin Sulfate 1 each 1 each 1X ONCE MC ; Start 07/23/16 at 22:00; Stop 07/23 at 22:01; Status Cancel Sodium Chloride/ Sodium Acetate/ Potassium Chloride/ Potassium Acetate/ Potassium Phosphate/ Magnesium Sulfate/ Multivitamins/ Minerals/Chromium/ Copper /Manganese/ Seleni/Zn/Total Parenteral Nutrition/Amino Acids/Dextrose/ Fat Emulsion Intravenous (Sodium Chloride/ Potass... 1,920 ml @ 80 mls/hr TPN CONT IV Last administered on 07/24/16 21:15; Start 07/24/16 at 22:00; Stop 04/30 at 21:59; Status DC Gentamicin Sulfate 1 each 1X ONCE MC ; Start 07/25/16 at 12:30; Stop 07/25/16 at 12:31; Status Cancel Amlodipine Besylate 5 mg 5 mg DAILY PO Last administered on 07/27/16 11:12; Start 07/25/16 at 12:00; Stop 07/29/16 at 08:44; Status DC Sodium Chloride 220 meq/Sodium Acetate 90 meq/ Potassium Chloride 30 meq/ Potassium Acetate 15 meq/Potassium Phosphate 10 mmol/ Magnesium Sulfate 50 meq/ Multivitamins/ Minerals 10 ml/ Chromium/Copper/ Manganese/Seleni/ Zn 1 ml/Total Parenteral Nutrition/Amino Acids/Dextrose/ Fat Emuls... 1,920 ml @ 80 mls/hr TPN CONT IV Last administered on 07/25/16 22:25; Start 07/25/16 at 22:00; Stop 07/26/16 at 21:59; Status DC Sodium Chloride/ Sodium Acetate/ Potassium Chloride/ Potassium Acetate/ Potassium Phosphate/ Magnesium Sulfate/ Multivitamins/ Minerals/Chromium/ Copper /Manganese/ Seleni/Zn/Total Parenteral Nutrition/Amino Acids/Dextrose/ Fat Emulsion Intravenous (Sodium Chloride/ Potass... 1,920 ml @ 80 mls/hr TPN CONT IV Last administered on 07/26/16 23:16; Start 07/26/16 at 22:00; Stop at 21:59; Status DC Furosemide 20 mg 20 mg 1X ONCE IVP Last administered on 07/27/16 11:31; Start 07/27/16 at 09:00; Stop 07/27/16 at 09:01; Status DC Daptomycin 340 mg/ Sodium Chloride 50 ml @ 100 mls/hr Q24H IV Last administered on 07/29/16 15:05; Start 07/27/16 at 13:00; Stop 07/30/16 at 07:25 ; Status DC Piperacillin Sod/ Tazobactam Sod 3.375 gm/Sodium Chloride 50 ml @ 100 mls/hr Q6HRS IV Last administered on 07/30/16 05:30; Start 07/27/16 at 12:30; Stop at 07:25; Status DC Fluconazole/ Sodium Chloride 100 ml @ 100 mls/hr Q24H IV Last administered on 07/28/16 13:32; Start 07/27/16 at 13:00; Stop 07/29/16 at 00:53; Status DC Sodium Chloride 1,000 ml @ 1,000 mls/hr 1X ONCE IV Last administered on 12:34; Start 07/27/16 at 12:30; Stop 07/27/16 at 13:29; Status DC Sodium Chloride 220 meq/Sodium Acetate 90 meq/ Potassium Chloride 30 meq/ Potassium Acetate 15 meq/Potassium Phosphate 10 mmol/ Magnesium Sulfate 45 meq/ Multivitamins/ Minerals 10 ml/ Chromium/Copper/ Manganese/Seleni/ Zn 1 ml/Total Parenteral Nutrition/Amino Acids/Dextrose/ Fat Emuls... 1,920 ml @ 80 mls/hr TPN CONT IV Last administered on 07/27/16 22:38; Start 07/27/16 at 22:00; Stop 07/28/16 at 21:59; Status DC Sodium Chloride (Iv Sodium Chloride 0.9% 1000ml Bag) 1,000 ml @ 45 mls/hr [id number] IV Last administered on 07/28/16 03:24; Start 07/27/16 at 17:00; Stop 07/28/16 at 10:27; Status DC Acetaminophen 650 mg 650 mg PRN Q6HRS PRN [place] fever Last administered on 03:57; Start 07/27/16 at 16:30; Stop 07/29/16 at 08:33; Status DC Sodium Chloride 1,000 ml @ 427.5 mls/ hr Q2H21M IV Last administered on 19:30; Start 07/27/16 at 19:30; Stop 07/27/16 at 23:30; Status DC Sodium Chloride 220 meq/Sodium Acetate 90 meq/ Potassium Chloride 30 meq/ Potassium Acetate 15 meq/Potassium Phosphate 10 mmol/ Magnesium Sulfate 45 meq/ Multivitamins/ Minerals 10 ml/ Chromium/Copper/ Manganese/Seleni/ Zn 1 ml/Total Parenteral Nutrition/Amino Acids/Dextrose/ Fat Emuls... 1,920 ml @ 80 mls/hr TPN CONT IV Last administered on 07/28/16 21:43; Start 07/28/16 at 22:00; Stop 07/29/16 at 21:59; Status DC Micafungin Sodium/ Dextrose (Mycamine) 100 ml @ 100 mls/hr Q24H IV Last administered on 08/07/16 00:40; Start 07/29/16 at 01:00 Lorazepam (Ativan) 0.05 mg PRN Q4HRS PRN IV ANXIETY / AGITATION; Start at 02:30; Stop 07/29/16 at 02:48; Status DC Lorazepam (Ativan) 0.5 mg PRN Q4HRS PRN IV ANXIETY / AGITATION Last administered on 07/29/16 03:18; Start 07/29/16 at 03:00 Acetaminophen (Tylenol) 650 mg PRN Q4HRS PRN [place] MILD PAIN / TEMP; Start at 08:30 Ketorolac Tromethamine (Toradol) 30 mg PRN Q6HRS PRN IV PAIN/FEVER Last administered on 07/30/16 00:50; Start 07/29/16 at 08:30; Stop 07/30/16 at 13:01 ; Status DC Pantoprazole Sodium 40 mg 40 mg DAILYAC IVP Last administered on 08/07/16 07: 49; Start 07/29/16 at 09:00 Sodium Chloride 1,000 ml @ 45 mls/hr [id number] IV Last administered on 09:17; Start 07/29/16 at 08:45; Stop 07/31/16 at 15:01; Status DC Sodium Chloride/ Sodium Acetate/ Potassium Chloride/ Potassium Acetate/ Potassium Phosphate/ Magnesium Sulfate/ Multivitamins/ Minerals/Chromium/ Copper /Manganese/ Seleni/Zn/Total Parenteral Nutrition/Amino Acids/Dextrose/ Fat Emulsion Intravenous (Sodium Chloride/ Potass... 1,920 ml @ 80 mls/hr TPN CONT IV Last administered on 07/29/16 22:06; Start 07/29/16 at 22:00; Stop at 21:59; Status DC Lidocaine/Sodium Bicarbonate 20 ml 20 ml STK-MED ONCE IJ ; Start 07/29/16 at 13: 13; Stop 07/29/16 at 13:14; Status DC Heparin Sodium/ Sodium Chloride 500 ml @ As Directed STK-MED ONCE .ROUTE ; Start 07/29/16 at 13:13; Stop 07/29/16 at 13:14; Status DC Lidocaine/ Epinephrine (Xylocaine 1%-Epi 1:100,000) 20 ml STK-MED ONCE .ROUTE ; Start 07/29/16 at 13:22; Stop 07/29/16 at 13:23; Status DC Midazolam HCl (Versed) 5 mg STK-MED ONCE .ROUTE ; Start 07/29/16 at 13:32; Stop 07/29/16 at 13:33; Status DC Fentanyl Citrate (Fentanyl 5ml Vial) 250 mcg STK-MED ONCE .ROUTE ; Start at 13:32; Stop 07/29/16 at 13:33; Status DC Heparin Sodium/ Sodium Chloride 1,000 unit 1X ONCE IART Last administered on 13:45; Start 07/29/16 at 13:45; Stop 07/29/16 at 13:48; Status DC Midazolam HCl (Versed) 5 mg 1X ONCE IV Last administered on 07/29/16 13:45; Start 07/29/16 at 13:45; Stop 07/29/16 at 13:48; Status DC Fentanyl Citrate (Fentanyl 5ml Vial) 250 mcg 1X ONCE IV Last administered on 13:45; Start 07/29/16 at 13:45; Stop 07/29/16 at 13:48; Status DC Lidocaine/ Epinephrine 20 ml 20 ml 1X ONCE IJ Last administered on 07/29/16 13:45; Start 07/29/16 at 13:45; Stop 07/29/16 at 13:48; Status DC Sodium Chloride 220 meq/Sodium Acetate 90 meq/ Potassium Chloride 15 meq/ Potassium Acetate 30 meq/Potassium Phosphate 10 mmol/ Magnesium Sulfate 45 meq/ Multivitamins/ Minerals 10 ml/ Chromium/Copper/ Manganese/Seleni/ Zn 1 ml/Total Parenteral Nutrition/Amino Acids/Dextrose/ Fat Emuls... 1,920 ml @ 80 mls/hr TPN CONT IV ; Start 07/30/16 at 22:00; Stop 07/31/16 at 21:59; Status DC Norepinephrine Bitartrate 8 mg/ Sodium Chloride 258 ml @ 1.93 mls/hr 1X ONCE IV Last administered on 07/30/16 11:17; Start 07/30/16 at 11:15; Stop at 15:43; Status DC Norepinephrine Bitartrate/Sodium Chloride (Levophed Vial/ Iv Sodium Chloride 0.9 % 250ml) 258 ml @ 0 mls/hr CONT PRN IV SEE I/O RECORD Last administered on 08/02 19:54; Start 07/30/16 at 11:15; Stop 08/04/16 at 09:29; Status DC Furosemide 60 mg 60 mg 1X ONCE IVP Last administered on 07/30/16 11:14; Start 07/30/16 at 11:15; Stop 07/30/16 at 11:16; Status DC Sodium Chloride 500 ml @ 500 mls/hr Q1H IV Last administered on 07/30/16 17: 04; Start 07/30/16 at 14:30; Stop 07/30/16 at 15:29; Status DC Albumin Human 100 ml @ 100 mls/hr Q8HRS IV Last administered on 07/31/16 05: 37; Start 07/30/16 at 14:30; Stop 07/31/16 at 06:59; Status DC Furosemide/Sodium Chloride (Lasix Drip/Iv Sodium Chloride 0.9% 100ml) 100 ml @ 0 mls/hr CONT PRN IV SEE I/O RECORD Last administered on 07/31/16 03:17; Start 07/30/16 at 14:30; Stop 08/01/16 at 13:19; Status DC Ondansetron HCl (Zofran) 8 mg PRN Q8HRS PRN IV NAUSEA/VOMITING Last administered on 07/30/16 14:38; Start 07/30/16 at 14:30 Sodium Bicarbonate 50 meq 50 meq 1X ONCE IV Last administered on 07/30/16 14: 43; Start 07/30/16 at 14:30; Stop 07/30/16 at 14:31; Status DC Heparin Sodium/ Sodium Chloride 500 ml @ As Directed STK-MED ONCE .ROUTE ; Start 07/30/16 at 14:49; Stop 07/30/16 at 14:50; Status DC Lidocaine HCl 20 ml STK-MED ONCE .ROUTE ; Start 07/30/16 at 14:49; Stop at 14:50; Status DC Midazolam HCl (Versed) 2 mg STK-MED ONCE .ROUTE ; Start 07/30/16 at 15:19; Stop 07/30/16 at 15:20; Status DC Heparin Sodium/ Sodium Chloride 1,000 unit 1X ONCE IART Last administered on 15:44; Start 07/30/16 at 15:45; Stop 07/30/16 at 15:46; Status DC Midazolam HCl (Versed) 1.5 mg 1X ONCE IV Last administered on 07/30/16 15:44 ; Start 07/30/16 at 15:45; Stop 07/30/16 at 15:46; Status DC Lidocaine HCl 20 ml 1X ONCE IJ Last administered on 07/30/16 15:44; Start at 15:45; Stop 07/30/16 at 15:46; Status DC Heparin Sodium (Porcine) 61251 unit 10,000 unit STK-MED ONCE .ROUTE ; Start at 15:54; Stop 07/30/16 at 15:55; Status DC Fentanyl Citrate 30 ml @ 0 mls/hr CONT PRN PRN IV PROTOCOL Last administered on 08/07/16 06:29; Start 07/30/16 at 16:45 Sodium Bicarbonate/ Dextrose 1,150 ml @ 125 mls/hr 1X ONCE IV Last administered on 07/30/16 18:34; Start 07/30/16 at 17:30; Stop 07/31/16 at 02:41 ; Status DC Succinylcholine Chloride 200 mg 200 mg STK-MED ONCE .ROUTE ; Start 07/30/16 at 19:47; Stop 07/30/16 at 19:48; Status DC Propofol 100 ml @ As Directed STK-MED ONCE IV ; Start 07/30/16 at 19:48; Stop 07/30/16 at 19:49; Status DC Midazolam HCl (Versed 100mg/ 100ml Premix) 100 ml @ 0 mls/hr CONT PRN IV SEE I/ O RECORD Last administered on 08/03/16 12:18; Start 07/30/16 at 21:15 Sodium Bicarbonate 50 meq 50 meq 1X ONCE IV Last administered on 07/30/16 22: 15; Start 07/30/16 at 22:30; Stop 07/30/16 at 22:31; Status DC Dopamine HCl/ Dextrose 250 ml @ 11.513 mls/ hr CONT PRN IV SEE I/O RECORD Last administered on 07/31/16 20:16; Start 07/30/16 at 22:15; Stop 08/04/16 at 09:29; Status DC Sodium Bicarbonate/ Dextrose 1,150 ml @ 125 mls/hr Q9H12M IV Last administered on 08/01/16 09:30; Start 07/31/16 at 03:00; Stop 08/01/16 at 13:19 ; Status DC Propofol (Diprivan) 1,000 mg STK-MED ONCE IV ; Start 07/30/16 at 20:00; Stop at 08:16; Status DC Succinylcholine Chloride 200 mg 200 mg STK-MED ONCE .ROUTE ; Start 07/30/16 at 20:00; Stop 07/31/16 at 08:16; Status DC Tigecycline 50 mg/ Sodium Chloride 50 ml @ 100 mls/hr Q12HR IV Last administered on 08/04/16 09:01; Start 07/31/16 at 21:00; Stop 08/04/16 at 10:00 ; Status DC Tigecycline/ Sodium Chloride (Tygacil/Iv Sodium Chloride 0.9% 100ml) 100 ml @ 200 mls/hr 1X ONCE IV Last administered on 07/31/16 09:22; Start 07/31/16 at 09:00; Stop 07/31/16 at 09:29; Status DC Darbepoetin Sarbjit 60 mcg 60 mcg WEEKLYHS SQ Last administered on 07/31/16 21:09 ; Start 07/31/16 at 21:00 Albumin Human 100 ml @ 100 mls/hr 1X ONCE IV Last administered on 07/31/16 11:40; Start 07/31/16 at 11:15; Stop 07/31/16 at 12:14; Status DC Albumin Human 100 ml @ 100 mls/hr 1X ONCE IV Last administered on 07/31/16 12:03; Start 07/31/16 at 11:15; Stop 07/31/16 at 12:14; Status DC Sodium Chloride (Iv Sodium Chloride 0.9% 1000ml Bag) 1,000 ml @ 1,000 mls/hr Q1H PRN IV hypotension; Start 07/31/16 at 11:33; Stop 07/31/16 at 17:32; Status DC Info (PHARMACY MONITORING -- do not chart) 1 each PRN DAILY PRN MC SEE COMMENTS ; Start 07/31/16 at 11:45 Info (PHARMACY MONITORING -- do not chart) 1 each PRN DAILY PRN MC SEE COMMENTS ; Start 07/31/16 at 11:45; Status UNV Hydrocortisone Sodium Succinate (Solu-Cortef) 100 mg Q8HRS IV Last administered on 08/04/16 06:16; Start 08/01/16 at 07:00; Stop 08/04/16 at 09:29 ; Status DC Albuterol/ Ipratropium (Duoneb) 3 ml RTQID NEB Last administered on 08/07/16 08:18; Start 08/01/16 at 08:00 Albuterol/ Ipratropium 3 ml 3 ml STK-MED ONCE .ROUTE Last administered on 07:34; Start 08/01/16 at 06:59; Stop 08/01/16 at 07:00; Status DC Sodium Chloride 1,000 ml @ 1,000 mls/hr Q1H PRN IV hypotension; Start 08/01/16 at 06:57; Stop 08/01/16 at 12:56; Status DC Albumin Human (Albuminar) 200 ml @ 200 mls/hr 1X PRN PRN IV Hypotension; Start 08/01/16 at 07:00; Stop 08/01/16 at 12:59; Status DC Info (PHARMACY MONITORING -- do not chart) 1 each PRN DAILY PRN MC SEE COMMENTS ; Start 08/01/16 at 07:00; Status UNV Info 1 each 1 each PRN DAILY PRN MC SEE COMMENTS Last administered on 12:13; Start 08/01/16 at 13:30 Sodium Chloride 220 meq/Sodium Acetate 90 meq/ Potassium Chloride 15 meq/ Potassium Acetate 30 meq/Potassium Phosphate 10 mmol/ Magnesium Sulfate 45 meq/ Multivitamins/ Minerals 10 ml/ Chromium/Copper/ Manganese/Seleni/ Zn 1 ml/Total Parenteral Nutrition/Amino Acids/Dextrose/ Fat Emuls... 1,920 ml @ 80 mls/hr TPN CONT IV Last administered on 08/01/16 21:56; Start 08/01/16 at 22:00; Stop 08/02/16 at 21:59; Status DC Potassium Chloride (KCl Premix 20meq) 50 ml @ 50 mls/hr Q1H IV Last administered on 08/01/16 19:05; Start 08/01/16 at 17:00; Stop 08/01/16 at 18:59 ; Status DC Insulin Aspart 0-6 UNITS TIDWMEALS SQ Last administered on 08/02/16 11:33; Start 08/02/16 at 12:00; Stop 08/02/16 at 14:34; Status DC Sodium Chloride 220 meq/Sodium Acetate 90 meq/ Potassium Chloride 15 meq/ Potassium Acetate 30 meq/Magnesium Sulfate 45 meq/ Multivitamins/ Minerals 10 ml / Chromium/Copper/ Manganese/Seleni/ Zn 1 ml/Total Parenteral Nutrition/Amino Acids/Dextrose/ Fat Emulsion Intravenous 1,920 ml @ 80 mls/hr TPN CONT IV Last administered on 08/02/16 21:34; Start 08/02/16 at 22:00; Stop 08/03/16 at 21:59; Status DC Levofloxacin/ Dextrose 150 ml @ 100 mls/hr 1X ONCE IV Last administered on 14:35; Start 08/02/16 at 14:00; Stop 08/02/16 at 15:29; Status DC Daptomycin/Sodium Chloride (Cubicin/Iv Sodium Chloride 0.9% 50ml) 50 ml @ 100 mls/hr ONCE ONCE IV Last administered on 08/02/16 14:34; Start 08/02/16 at 15 :00; Stop 08/02/16 at 15:29; Status DC Insulin Aspart 0-6 UNITS Q6HRS SQ Last administered on 08/06/16 23:37; Start 08/02/16 at 18:00 Sodium Chloride (Iv Sodium Chloride 0.9% 1000ml Bag) 1,000 ml @ 1,000 mls/hr Q1H PRN IV hypotension; Start 08/03/16 at 07:26; Stop 08/03/16 at 13:25; Status DC Diphenhydramine HCl (Benadryl) 25 mg 1X PRN PRN IV ITCHING; Start 08/03/16 at 07:30; Stop 08/04/16 at 07:29; Status DC Diphenhydramine HCl (Benadryl) 25 mg 1X PRN PRN IV ITCHING; Start 08/03/16 at 07:30; Stop 08/04/16 at 07:29; Status DC Sodium Chloride (Normal Saline Flush) 10 ml 1X PRN PRN IV AP catheter pack; Start 08/03/16 at 07:30; Stop 08/04/16 at 07:29; Status DC Sodium Chloride 10 ml 10 ml 1X PRN PRN IV MARKETING ANALYST catheter pack; Start 08/03/16 at 07:30; Stop 08/04/16 at 07:29; Status DC Sodium Chloride (Iv Sodium Chloride 0.9% 1000ml Bag) 1,000 ml @ 400 mls/hr Q2H30M PRN IV PATENCY; Start 08/03/16 at 07:26; Stop 08/03/16 at 19:25; Status DC Info 1 each 1 each PRN DAILY PRN MC SEE COMMENTS; Start 08/03/16 at 07:30; Status UNV Albumin Human 200 ml @ 200 mls/hr Q2HR IV Last administered on 08/03/16 10:00 ; Start 08/03/16 at 08:44; Stop 08/03/16 at 10:59; Status DC Sodium Chloride 160 meq/Sodium Acetate 60 meq/ Potassium Chloride 15 meq/ Potassium Acetate 30 meq/Magnesium Sulfate 25 meq/ Multivitamins/ Minerals 10 ml / Chromium/Copper/ Manganese/Seleni/ Zn 1 ml/Total Parenteral Nutrition/Amino Acids/Dextrose/ Fat Emulsion Intravenous 1,500 ml @ 62.5 mls/hr TPN CONT IV Last administered on 08/03/16 22:52; Start 08/03/16 at 22:00; Stop 08/04/16 at 21:59; Status DC Levofloxacin/ Dextrose 100 ml @ 100 mls/hr 1X ONCE IV Last administered on 10:50; Start 08/04/16 at 07:30; Stop 08/04/16 at 08:30; Status DC Daptomycin 450 mg/ Sodium Chloride 50 ml @ 100 mls/hr ONCE ONCE IV Last administered on 08/04/16 09:55; Start 08/04/16 at 08:00; Stop 08/04/16 at 08:30 ; Status DC Tigecycline/ Sodium Chloride (Tygacil/Iv Sodium Chloride 0.9% 50ml) 50 ml @ 100 mls/hr Q12HR IV Last administered on 08/07/16 07:50; Start 08/04/16 at 21: 00 Hydrocortisone Sodium Succinate 50 mg 50 mg Q8HRS IV Last administered on 05:39; Start 08/04/16 at 14:00; Stop 08/05/16 at 11:12; Status DC Furosemide 100 mg/ Sodium Chloride 100 ml @ 0 mls/hr CONT PRN IV SEE I/O RECORD Last administered on 08/06/16 14:15; Start 08/04/16 at 11:30 Sodium Chloride 160 meq/Sodium Acetate 60 meq/ Potassium Chloride 15 meq/ Potassium Acetate 30 meq/Magnesium Sulfate 25 meq/ Multivitamins/ Minerals 10 ml / Chromium/Copper/ Manganese/Seleni/ Zn 1 ml/Total Parenteral Nutrition/Amino Acids/Dextrose/ Fat Emulsion Intravenous 1,500 ml @ 62.5 mls/hr TPN CONT IV Last administered on 08/04/16 21:45; Start 08/04/16 at 22:00; Stop 08/06/16 at 08:48; Status DC Sodium Chloride 1,000 ml @ 1,000 mls/hr Q1H PRN IV hypotension; Start 08/04/16 at 12:00; Stop 08/04/16 at 17:59; Status DC Sodium Chloride (Iv Sodium Chloride 0.9% 1000ml Bag) 1,000 ml @ 400 mls/hr Q2H30M PRN IV PATENCY; Start 08/04/16 at 12:00; Stop 08/04/16 at 23:59; Status DC Info 1 each 1 each PRN DAILY PRN MC SEE COMMENTS; Start 08/04/16 at 16:30; Status UNV Levofloxacin/ Dextrose 100 ml @ 100 mls/hr 1X ONCE IV Last administered on 14:27; Start 08/05/16 at 14:00; Stop 08/05/16 at 14:59; Status DC Daptomycin/Sodium Chloride (Cubicin/Iv Sodium Chloride 0.9% 50ml) 50 ml @ 100 mls/hr 1X ONCE IV Last administered on 08/05/16 14:27; Start 08/05/16 at 14: 00; Stop 08/05/16 at 14:29; Status DC Heparin Sodium (Porcine) 10,000 unit STK-MED ONCE .ROUTE ; Start 08/05/16 at 09: 35; Stop 08/05/16 at 09:36; Status DC Lidocaine/Sodium Bicarbonate 20 ml 20 ml STK-MED ONCE IJ ; Start 08/05/16 at 09: 36; Stop 08/05/16 at 09:37; Status DC Heparin Sodium/ Sodium Chloride 500 ml @ As Directed STK-MED ONCE .ROUTE ; Start 08/05/16 at 09:36; Stop 08/05/16 at 09:37; Status DC Lidocaine/Sodium Bicarbonate (Buffered Lidocaine 1%) 2 ml 1X ONCE IJ Last administered on 08/05/16 10:04; Start 08/05/16 at 10:00; Stop 08/05/16 at 10:02 ; Status DC Heparin Sodium/ Sodium Chloride 60 unit 1X ONCE IV Last administered on 10:04; Start 08/05/16 at 10:00; Stop 08/05/16 at 10:02; Status DC Heparin Sodium (Porcine) 2,800 unit 1X ONCE INT CAT Last administered on 10:04; Start 08/05/16 at 10:00; Stop 08/05/16 at 10:02; Status DC Info (PHARMACY MONITORING -- do not chart) 1 each PRN DAILY PRN MC SEE COMMENTS ; Start 08/05/16 at 10:30; Stop 08/05/16 at 10:30; Status DC Info (PHARMACY MONITORING -- do not chart) 1 each PRN DAILY PRN MC SEE COMMENTS ; Start 08/05/16 at 10:30; Stop 08/05/16 at 10:30; Status DC Hydrocortisone Sodium Succinate 50 mg 50 mg BID IV Last administered on 07:49; Start 08/05/16 at 21:00 Sodium Chloride 160 meq/Sodium Acetate 60 meq/ Potassium Chloride 15 meq/ Potassium Acetate 30 meq/Magnesium Sulfate 25 meq/ Multivitamins/ Minerals 10 ml / Chromium/Copper/ Manganese/Seleni/ Zn 1 ml/Total Parenteral Nutrition/Amino Acids/Dextrose/ Fat Emulsion Intravenous 1,500 ml @ 62.5 mls/hr TPN CONT IV Last administered on 08/05/16 22:04; Start 08/05/16 at 22:00; Stop 08/06/16 at 21:59; Status DC Daptomycin 500 mg/ Sodium Chloride 50 ml @ 100 mls/hr Q24H IV Last administered on 08/06/16 14:09; Start 08/06/16 at 14:00 Sodium Chloride (Iv Sodium Chloride 0.9% 1000ml Bag) 1,000 ml @ 1,000 mls/hr Q1H PRN IV hypotension; Start 08/06/16 at 08:21; Stop 08/06/16 at 14:20; Status DC Diphenhydramine HCl (Benadryl) 25 mg 1X PRN PRN IV ITCHING; Start 08/06/16 at 08:30; Stop 08/07/16 at 08:29; Status DC Diphenhydramine HCl (Benadryl) 25 mg 1X PRN PRN IV ITCHING; Start 08/06/16 at 08:30; Stop 08/07/16 at 08:29; Status DC Sodium Chloride (Normal Saline Flush) 10 ml 1X PRN PRN IV AP catheter pack; Start 08/06/16 at 08:30; Stop 08/07/16 at 08:29; Status DC Sodium Chloride 10 ml 10 ml 1X PRN PRN IV MARKETING ANALYST catheter pack; Start 08/06/16 at 08:30; Stop 08/07/16 at 08:29; Status DC Sodium Chloride (Iv Sodium Chloride 0.9% 1000ml Bag) 1,000 ml @ 400 mls/hr Q2H30M PRN IV PATENCY; Start 08/06/16 at 08:21; Stop 08/06/16 at 20:20; Status DC Info 1 each 1 each PRN DAILY PRN MC SEE COMMENTS; Start 08/06/16 at 08:30; Status UNV Albumin Human 200 ml @ 200 mls/hr 1X STAT IV Last administered on 08/06/16 10:09; Start 08/06/16 at 09:52; Stop 08/06/16 at 10:51; Status DC Sodium Chloride/ Sodium Acetate/ Potassium Chloride/ Potassium Acetate/ Magnesium Sulfate/ Multivitamins/ Minerals/Chromium/ Copper/Manganese/ Seleni/Zn /Total Parenteral Nutrition/Amino Acids/Dextrose/ Fat Emulsion Intravenous ( Sodium Chloride/ Infuvite Adult/ Multitrace-5 Conc/ Tpn - Tpn Flu... 1,500 ml @ 62.5 mls/hr TPN CONT IV Last administered on 08/06/16 21:57; Start at 22:00; Stop 08/07/16 at 21:59 Darbepoetin Sarbjit 60 mcg 60 mcg WEEKLYHS SQ ; Start 08/07/16 at 21:00; Status UNV Potassium Chloride (KCl Premix 20meq) 50 ml @ 50 mls/hr Q1H IV Last administered on 08/07/16 08:09; Start 08/07/16 at 08:00; Stop 08/07/16 at 09:59 ; Status DC Active Scripts Active Dilaudid (Hydromorphone Hcl) 4 Mg Tablet 4 Mg PO Q6HRS Phenazopyridine Hcl 200 Mg Tablet 200 Mg PO PRN TID PRN FENTANYL 50mcg/hr (Fentanyl) 1 Each Patch.td72 1 Patch TD Q3DAYS Anaspaz (Hyoscyamine Sulfate) 0.125 Mg Tab.rapdis 0.125 Mg PO Q6HRS PRN Cefpodoxime Proxetil 200 Mg Tablet 200 Mg PO BID Sertraline Hcl 50 Mg Tablet 100 Mg PO DAILY 30 Days Protonix (Pantoprazole Sodium) 40 Mg Tablet.dr 1 Tab PO DAILY Zinc Oxide 56.7 Gm Oint...g. 1 Sang TP BID Lidocaine 35.44 Gm Oint...g. 1 Sang TP BID Ondansetron Odt (Ondansetron) 4 Mg Tab.rapdis 8 Mg PO PRN Q8HRS PRN Gas-X (Simethicone) 80 Mg Tab.chew 80 Mg PO PRN QID PRN Reported Lorazepam 0.5 Mg Tablet 0.5 Mg PO PRN BID PRN Vitals/I & O Vital Sign - Last 24 Hours 08/06/16 08/06/16 08/06/16 08/06/16 11:00 11:04 12:00 12:00 Temp 97.4 97.4 Pulse 102 102 Resp 33 30 B/P 110/86 104/87 Pulse Ox 99 100 100 O2 Delivery Ventilator Ventilator Ventilator Mechanical Ventilator 08/06/16 08/06/16 08/06/16 08/06/16 12:43 12:48 12:58 13:00 Temp 97.8 98.1 98.2 97.8 98.1 98.2 Pulse 97 98 95 101 Resp B/P 123/82 89/61 107/75 103/79 Pulse Ox 100 O2 Delivery Ventilator 08/06/16 08/06/16 08/06/16 08/06/16 13:01 13:06 13:15 13:54 Temp 98.2 97.6 97.6 98.2 97.6 97.6 Pulse 100 95 87 Resp B/P 97/59 102/62 102/62 Pulse Ox 100 O2 Delivery Ventilator 08/06/16 08/06/16 08/06/1608/06/17 14:00 14:24 15:00 16:00 Temp 98.1 98.1 Pulse 98 84 82 Resp 21 B/P 124/63 137/71 137/74 Pulse Ox 99 99 99 99 O2 Delivery Ventilator Ventilator Ventilator Ventilator 08/06/16 08/06/16 08/06/16 08/06/16 16:00 16:15 17:00 18:00 Temp 97.6 97.6 Pulse 80 77 Resp 20 28 B/P 137/72 135/71 Pulse Ox 100 99 99 O2 Delivery Mechanical Ventilator Ventilator Ventilator Ventilator 08/06/16 08/06/16 08/06/16 08/06/16 19:00 19:35 20:00 20:00 Temp 97.8 97.8 Pulse 79 72 Resp 20 20 B/P 137/63 120/51 Pulse Ox 100 100 100 O2 Delivery Ventilator Ventilator Ventilator Mechanical Ventilator 08/06/16 08/06/16 08/06/16 08/06/16 21:00 21:25 22:00 23:00 Pulse 72 71 65 Resp 20 20 20 B/P 116/56 124/59 122/69 Pulse Ox 100 100 100 100 O2 Delivery Ventilator Ventilator Ventilator Ventilator 08/06/16 08/07/16 08/07/16 08/07/16 23:59 00:00 00:29 01:00 Temp 97.4 97.4 Pulse 67 81 Resp 20 20 B/P 140/59 157/74 Pulse Ox 100 100 100 O2 Delivery Mechanical Ventilator Ventilator Ventilator Ventilator 08/07/16 08/07/16 08/07/16 08/07/16 02:00 02:57 03:00 03:50 Pulse 66 68 Resp 20 20 B/P 144/66 140/76 Pulse Ox 100 100 100 O2 Delivery Ventilator Ventilator Ventilator Mechanical Ventilator 08/07/16 08/07/16 08/07/16 08/07/16 04:00 05:00 05:15 06:00 Temp 97.4 97.4 Pulse 64 65 60 Resp 20 20 20 B/P 135/72 129/72 136/60 Pulse Ox 100 100 100 100 O2 Delivery Ventilator Ventilator Ventilator Ventilator 08/07/16 10:04 Pulse Ox 100 O2 Delivery Ventilator Intake and Output 08/06/16 08/06/16 08/07/16 15:00 23:00 07:00 Intake Total 234 ml 50 ml 978 ml Output Total 510 ml 257 ml 1189 ml Balance -276 ml -207 ml -211 ml BENITA LUTZ MD Aug 07, 2016 10:27
--- NOTE | 2016-08-07 10:37 | PDOC ---
PULMONARY PROGRESS NOTES Subjective DOING WELL ON CPAP AWAKE/WEAK Vitals Vital Signs Date Time Temp Pulse Resp B/P Pulse Ox O2 Delivery O2 Flow Rate FiO2 08/07/16 10:04 100 Ventilator 08/07/16 06:00 60 20 136/60 08/07/16 04:00 97.4 97.4 General: Alert, Mild Distress HEENT: Other (nc at perrl, nose clear, orally intuvated. ) Lungs: Other (decrease bs) Cardiovascular: S1, S2 Abdomen: Soft, Non-tender, Other Neuro Exam: Alert Skin: Warm Labs Laboratory Tests Test 08/05/16 13:15 08/05/16 13:17 08/05/16 23:50 08/06/16 05:23 Prothrombin Time 16.1SEC (11.7-14.0) Prothromb Time International Ratio 1.4 (0.8-1.1) Fibrinogen 102mg/dL (200-440) Glucose (Fingerstick) 133mg/dL (70-99) 153mg/dL (70-99) 175mg/dL (70-99) Test 08/06/16 05:25 08/06/16 08:00 08/06/16 14:04 08/06/16 23:35 White Blood Count 8.2x10^3/uL (4.0-11.0) Red Blood Count 3.24x10^6/uL (3.50-5.40) Hemoglobin 8.2g/dL (12.0-15.5) Hematocrit 25.1% (36.0-47.0) Mean Corpuscular Volume 78fL (79-100) Mean Corpuscular Hemoglobin 25pg (25-35) Mean Corpuscular Hemoglobin Concent 33g/dL (31-37) Red Cell Distribution Width 20.4% (11.5-14.5) Platelet Count 49x10^3/uL (140-400) Neutrophils (%) (Auto) 81% (31-73) Lymphocytes (%) (Auto) 12% (24-48) Monocytes (%) (Auto) 7% (0-9) Eosinophils (%) (Auto) 0% (0-3) Basophils (%) (Auto) 0% (0-3) Neutrophils # (Auto) 6.6x10^3uL (1.8-7.7) Lymphocytes # (Auto) 1.0x10^3/uL (1.0-4.8) Monocytes # (Auto) 0.6x10^3/uL (0.0-1.1) Eosinophils # (Auto) 0.0x10^3/uL (0.0-0.7) Basophils # (Auto) 0.0x10^3/uL (0.0-0.2) Platelet Estimate Decreased (ADEQUATE) Hypochromasia Slight Anisocytosis Mod Fibrinogen 68mg/dL (200-440) Sodium Level 145mmol/L (136-145) Potassium Level 3.1mmol/L (3.5-5.1) Chloride Level 105mmol/L (98-107) Carbon Dioxide Level 27mmol/L (21-32) Anion Gap 13 (6-14) Blood Urea Nitrogen 72mg/dL (7-20) Creatinine 1.4mg/dL (0.6-1.0) Estimated GFR (Cockcroft-Gault) 46.3 Glucose Level 177mg/dL (70-99) Lactic Acid Level 2.0mmol/L (0.4-2.0) Calcium Level 8.9mg/dL (8.5-10.1) Phosphorus Level 4.8mg/dL (2.6-4.7) Magnesium Level 2.6mg/dL (1.8-2.4) O2 Saturation 99% (92-99) Arterial Blood pH 7.51 (7.35-7.45) Arterial Blood pCO2 at Patient Temp 30mmHg (35-46) Arterial Blood pO2 at Patient Temp 208mmHg (65-108) Arterial Blood HCO3 24mmol/L (21-28) Arterial Blood Base Excess 1mmol/L (-3-3) FiO2 40% Glucose (Fingerstick) 148mg/dL (70-99) 201mg/dL (70-99) Test 08/07/16 06:07 08/07/16 06:10 Glucose (Fingerstick) 140mg/dL (70-99) White Blood Count 6.5x10^3/uL (4.0-11.0) Red Blood Count 2.88x10^6/uL (3.50-5.40) Hemoglobin 7.3g/dL (12.0-15.5) Hematocrit 22.3% (36.0-47.0) Mean Corpuscular Volume 77fL (79-100) Mean Corpuscular Hemoglobin 25pg (25-35) Mean Corpuscular Hemoglobin Concent 33g/dL (31-37) Red Cell Distribution Width 20.0% (11.5-14.5) Platelet Count 40x10^3/uL (140-400) Neutrophils (%) (Auto) 81% (31-73) Lymphocytes (%) (Auto) 13% (24-48) Monocytes (%) (Auto) 6% (0-9) Eosinophils (%) (Auto) 0% (0-3) Basophils (%) (Auto) 0% (0-3) Neutrophils # (Auto) 5.2x10^3uL (1.8-7.7) Lymphocytes # (Auto) 0.9x10^3/uL (1.0-4.8) Monocytes # (Auto) 0.4x10^3/uL (0.0-1.1) Eosinophils # (Auto) 0.0x10^3/uL (0.0-0.7) Basophils # (Auto) 0.0x10^3/uL (0.0-0.2) Prothrombin Time 17.3SEC (11.7-14.0) Prothromb Time International Ratio 1.5 (0.8-1.1) Fibrinogen 121mg/dL (200-440) Sodium Level 145mmol/L (136-145) Potassium Level 2.8mmol/L (3.5-5.1) Chloride Level 104mmol/L (98-107) Carbon Dioxide Level 31mmol/L (21-32) Anion Gap 10 (6-14) Blood Urea Nitrogen 72mg/dL (7-20) Creatinine 1.2mg/dL (0.6-1.0) Estimated GFR (Cockcroft-Gault) 55.3 Glucose Level 149mg/dL (70-99) Lactic Acid Level 1.5mmol/L (0.4-2.0) Calcium Level 9.1mg/dL (8.5-10.1) Total Bilirubin 5.5mg/dL (0.2-1.0) Direct Bilirubin 2.9mg/dL (0.0-0.2) Aspartate Amino Transf (AST/SGOT) 37U/L (15-37) Alanine Aminotransferase (ALT/SGPT) 44U/L (14-59) Alkaline Phosphatase 155U/L (46-116) Total Protein 6.3g/dL (6.4-8.2) Albumin 3.2g/dL (3.4-5.0) Laboratory Tests Test 08/06/16 14:04 08/06/16 23:35 08/07/16 06:07 08/07/16 06:10 Glucose (Fingerstick) 148mg/dL (70-99) 201mg/dL (70-99) 140mg/dL (70-99) White Blood Count 6.5x10^3/uL (4.0-11.0) Red Blood Count 2.88x10^6/uL (3.50-5.40) Hemoglobin 7.3g/dL (12.0-15.5) Hematocrit 22.3% (36.0-47.0) Mean Corpuscular Volume 77fL (79-100) Mean Corpuscular Hemoglobin 25pg (25-35) Mean Corpuscular Hemoglobin Concent 33g/dL (31-37) Red Cell Distribution Width 20.0% (11.5-14.5) Platelet Count 40x10^3/uL (140-400) Neutrophils (%) (Auto) 81% (31-73) Lymphocytes (%) (Auto) 13% (24-48) Monocytes (%) (Auto) 6% (0-9) Eosinophils (%) (Auto) 0% (0-3) Basophils (%) (Auto) 0% (0-3) Neutrophils # (Auto) 5.2x10^3uL (1.8-7.7) Lymphocytes # (Auto) 0.9x10^3/uL (1.0-4.8) Monocytes # (Auto) 0.4x10^3/uL (0.0-1.1) Eosinophils # (Auto) 0.0x10^3/uL (0.0-0.7) Basophils # (Auto) 0.0x10^3/uL (0.0-0.2) Prothrombin Time 17.3SEC (11.7-14.0) Prothromb Time International Ratio 1.5 (0.8-1.1) Fibrinogen 121mg/dL (200-440) Sodium Level 145mmol/L (136-145) Potassium Level 2.8mmol/L (3.5-5.1) Chloride Level 104mmol/L (98-107) Carbon Dioxide Level 31mmol/L (21-32) Anion Gap 10 (6-14) Blood Urea Nitrogen 72mg/dL (7-20) Creatinine 1.2mg/dL (0.6-1.0) Estimated GFR (Cockcroft-Gault) 55.3 Glucose Level 149mg/dL (70-99) Lactic Acid Level 1.5mmol/L (0.4-2.0) Calcium Level 9.1mg/dL (8.5-10.1) Total Bilirubin 5.5mg/dL (0.2-1.0) Direct Bilirubin 2.9mg/dL (0.0-0.2) Aspartate Amino Transf (AST/SGOT) 37U/L (15-37) Alanine Aminotransferase (ALT/SGPT) 44U/L (14-59) Alkaline Phosphatase 155U/L (46-116) Total Protein 6.3g/dL (6.4-8.2) Albumin 3.2g/dL (3.4-5.0) Medications Active Scripts Medications Dose Route/Sig Days Date Category Dilaudid (Hydromorphone Hcl) 4 Mg Tablet 4 Mg PO Q6HRS 06/29/16 Rx Phenazopyridine Hcl 200 Mg Tablet 200 Mg PO PRN TID PRN 06/29/16 Rx FENTANYL 50mcg/hr (Fentanyl) 1 Each Patch.td72 1 Patch TD Q3DAYS 06/29/16 Rx Anaspaz (Hyoscyamine Sulfate) 0.125 Mg Tab.rapdis 0.125 Mg PO Q6HRS PRN 06/29/16 Rx Cefpodoxime Proxetil 200 Mg Tablet 200 Mg PO BID 06/29/16 Rx Sertraline Hcl 50 Mg Tablet 100 Mg PO DAILY 30 05/12/16 Rx Protonix (Pantoprazole Sodium) 40 Mg Tablet.dr 1 Tab PO DAILY 12/27/15 Rx Zinc Oxide 56.7 Gm Oint...g. 1 Sang TP BID 12/18/15 Rx Lidocaine 35.44 Gm Oint...g. 1 Sang TP BID 12/18/15 Rx Ondansetron Odt (Ondansetron) 4 Mg Tab.rapdis 8 Mg PO PRN Q8HRS PRN 07/03/15 Rx Gas-X (Simethicone) 80 Mg Tab.chew 80 Mg PO PRN QID PRN 09/30/14 Rx Lorazepam 0.5 Mg Tablet 0.5 Mg PO PRN BID PRN 11/08/13 Reported Comments CXR 08/07 RESOLVED CHF Impression . 1. Acute respiratory failure, multifactorial. 2. Septic shock. off pressors 3. Bilateral pulmonary infiltrates compatible with pulmonary edema, /doubt pneumonia. resolved 4. Fungemia. 5. Chronic enterocutaneous fistula. 6. Metabolic toxic encephalopathy. 7. Acute renal failure. 8. Tzhgiuka-ir-eucbrm protein malnutrition, present upon admission. 9. Metabolic acidosis. 10.Thrombocytopenia, sepsis induced Plan . Extend CPAP trial duration today possible extubation in am pain control abx per ID d/c solucortef, bronchodilator monitor Plt cont abx, antifungal protonix, scds for prophylaxis d/w RN/RT ROSAMARIA GUNDERSON MD Aug 07, 2016 10:37
[2016-08-07] MEDS: FUROSEMIDE INJ 100 MG in IV NORMAL SALINE 100ML 100 ML IV PRN (10:46)
[2016-08-07] MEDS: LORAZEPAM 2 MG/ML VIAL IV PRN ×2 (10:46→21:43)
[2016-08-07 10:55] LABS: FIO2 ABG 35
[2016-08-07] MEDS ORDERED: IV NORMAL SALINE 1000ML BAG 1,000 ML IV PRN (12:08)
[2016-08-07] MEDS ORDERED: DIPHENHYDRAMINE 50 MG/ML VIAL IV PRN ×2 (12:15)
[2016-08-07] MEDS ORDERED: DIALYSIS PATIENT. MC PRN ×2 (12:15)
[2016-08-07] MEDS ORDERED: 0.9 % SODIUM CHLORIDE 10 ML DISP.SYRIN. IV PRN ×2 (12:15)
--- NOTE | 2016-08-07 12:35 | PDOC ---
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 watch on Lasix gtt and watch UO/ hemodynamics Will skip HD over the weekend and reval UO and Solutes on Wednesday for HD Vitals Vital Signs Vital Signs Date Time Temp Pulse Resp B/P Pulse Ox O2 Delivery O2 Flow Rate FiO2 08/07/16 12:11 100 Ventilator 08/07/16 06:00 60 20 136/60 08/07/16 04:00 97.4 97.4 08/04/16 03:55 50.0 Labs Last Labs Laboratory Tests Test 08/05/16 13:15 08/05/16 13:17 08/05/16 23:50 08/06/16 05:23 Prothrombin Time 16.1SEC (11.7-14.0) Prothromb Time International Ratio 1.4 (0.8-1.1) Fibrinogen 102mg/dL (200-440) Glucose (Fingerstick) 133mg/dL (70-99) 153mg/dL (70-99) 175mg/dL (70-99) Test 08/06/16 05:25 08/06/16 08:00 08/06/16 14:04 08/06/16 23:35 White Blood Count 8.2x10^3/uL (4.0-11.0) Red Blood Count 3.24x10^6/uL (3.50-5.40) Hemoglobin 8.2g/dL (12.0-15.5) Hematocrit 25.1% (36.0-47.0) Mean Corpuscular Volume 78fL (79-100) Mean Corpuscular Hemoglobin 25pg (25-35) Mean Corpuscular Hemoglobin Concent 33g/dL (31-37) Red Cell Distribution Width 20.4% (11.5-14.5) Platelet Count 49x10^3/uL (140-400) Neutrophils (%) (Auto) 81% (31-73) Lymphocytes (%) (Auto) 12% (24-48) Monocytes (%) (Auto) 7% (0-9) Eosinophils (%) (Auto) 0% (0-3) Basophils (%) (Auto) 0% (0-3) Neutrophils # (Auto) 6.6x10^3uL (1.8-7.7) Lymphocytes # (Auto) 1.0x10^3/uL (1.0-4.8) Monocytes # (Auto) 0.6x10^3/uL (0.0-1.1) Eosinophils # (Auto) 0.0x10^3/uL (0.0-0.7) Basophils # (Auto) 0.0x10^3/uL (0.0-0.2) Platelet Estimate Decreased (ADEQUATE) Hypochromasia Slight Anisocytosis Mod Fibrinogen 68mg/dL (200-440) Sodium Level 145mmol/L (136-145) Potassium Level 3.1mmol/L (3.5-5.1) Chloride Level 105mmol/L (98-107) Carbon Dioxide Level 27mmol/L (21-32) Anion Gap 13 (6-14) Blood Urea Nitrogen 72mg/dL (7-20) Creatinine 1.4mg/dL (0.6-1.0) Estimated GFR (Cockcroft-Gault) 46.3 Glucose Level 177mg/dL (70-99) Lactic Acid Level 2.0mmol/L (0.4-2.0) Calcium Level 8.9mg/dL (8.5-10.1) Phosphorus Level 4.8mg/dL (2.6-4.7) Magnesium Level 2.6mg/dL (1.8-2.4) O2 Saturation 99% (92-99) Arterial Blood pH 7.51 (7.35-7.45) Arterial Blood pCO2 at Patient Temp 30mmHg (35-46) Arterial Blood pO2 at Patient Temp 208mmHg (65-108) Arterial Blood HCO3 24mmol/L (21-28) Arterial Blood Base Excess 1mmol/L (-3-3) FiO2 40% Glucose (Fingerstick) 148mg/dL (70-99) 201mg/dL (70-99) Test 08/07/16 06:07 08/07/16 06:10 08/07/16 08:00 Glucose (Fingerstick) 140mg/dL (70-99) White Blood Count 6.5x10^3/uL (4.0-11.0) Red Blood Count 2.88x10^6/uL (3.50-5.40) Hemoglobin 7.3g/dL (12.0-15.5) Hematocrit 22.3% (36.0-47.0) Mean Corpuscular Volume 77fL (79-100) Mean Corpuscular Hemoglobin 25pg (25-35) Mean Corpuscular Hemoglobin Concent 33g/dL (31-37) Red Cell Distribution Width 20.0% (11.5-14.5) Platelet Count 40x10^3/uL (140-400) Neutrophils (%) (Auto) 81% (31-73) Lymphocytes (%) (Auto) 13% (24-48) Monocytes (%) (Auto) 6% (0-9) Eosinophils (%) (Auto) 0% (0-3) Basophils (%) (Auto) 0% (0-3) Neutrophils # (Auto) 5.2x10^3uL (1.8-7.7) Lymphocytes # (Auto) 0.9x10^3/uL (1.0-4.8) Monocytes # (Auto) 0.4x10^3/uL (0.0-1.1) Eosinophils # (Auto) 0.0x10^3/uL (0.0-0.7) Basophils # (Auto) 0.0x10^3/uL (0.0-0.2) Prothrombin Time 17.3SEC (11.7-14.0) Prothromb Time International Ratio 1.5 (0.8-1.1) Fibrinogen 121mg/dL (200-440) Sodium Level 145mmol/L (136-145) Potassium Level 2.8mmol/L (3.5-5.1) Chloride Level 104mmol/L (98-107) Carbon Dioxide Level 31mmol/L (21-32) Anion Gap 10 (6-14) Blood Urea Nitrogen 72mg/dL (7-20) Creatinine 1.2mg/dL (0.6-1.0) Estimated GFR (Cockcroft-Gault) 55.3 Glucose Level 149mg/dL (70-99) Lactic Acid Level 1.5mmol/L (0.4-2.0) Calcium Level 9.1mg/dL (8.5-10.1) Phosphorus Level 5.1mg/dL (2.6-4.7) Magnesium Level 2.5mg/dL (1.8-2.4) Total Bilirubin 5.5mg/dL (0.2-1.0) Direct Bilirubin 2.9mg/dL (0.0-0.2) Aspartate Amino Transf (AST/SGOT) 37U/L (15-37) Alanine Aminotransferase (ALT/SGPT) 44U/L (14-59) Alkaline Phosphatase 155U/L (46-116) Total Protein 6.3g/dL (6.4-8.2) Albumin 3.2g/dL (3.4-5.0) O2 Saturation 99% (92-99) Arterial Blood pH 7.53 (7.35-7.45) Arterial Blood pCO2 at Patient Temp 32mmHg (35-46) Arterial Blood pO2 at Patient Temp 181mmHg (65-108) Arterial Blood HCO3 26mmol/L (21-28) Arterial Blood Base Excess 3mmol/L (-3-3) FiO2 35 Laboratory Tests Test 08/06/16 14:04 08/06/16 23:35 08/07/16 06:07 08/07/16 06:10 Glucose (Fingerstick) 148mg/dL (70-99) 201mg/dL (70-99) 140mg/dL (70-99) White Blood Count 6.5x10^3/uL (4.0-11.0) Red Blood Count 2.88x10^6/uL (3.50-5.40) Hemoglobin 7.3g/dL (12.0-15.5) Hematocrit 22.3% (36.0-47.0) Mean Corpuscular Volume 77fL (79-100) Mean Corpuscular Hemoglobin 25pg (25-35) Mean Corpuscular Hemoglobin Concent 33g/dL (31-37) Red Cell Distribution Width 20.0% (11.5-14.5) Platelet Count 40x10^3/uL (140-400) Neutrophils (%) (Auto) 81% (31-73) Lymphocytes (%) (Auto) 13% (24-48) Monocytes (%) (Auto) 6% (0-9) Eosinophils (%) (Auto) 0% (0-3) Basophils (%) (Auto) 0% (0-3) Neutrophils # (Auto) 5.2x10^3uL (1.8-7.7) Lymphocytes # (Auto) 0.9x10^3/uL (1.0-4.8) Monocytes # (Auto) 0.4x10^3/uL (0.0-1.1) Eosinophils # (Auto) 0.0x10^3/uL (0.0-0.7) Basophils # (Auto) 0.0x10^3/uL (0.0-0.2) Prothrombin Time 17.3SEC (11.7-14.0) Prothromb Time International Ratio 1.5 (0.8-1.1) Fibrinogen 121mg/dL (200-440) Sodium Level 145mmol/L (136-145) Potassium Level 2.8mmol/L (3.5-5.1) Chloride Level 104mmol/L (98-107) Carbon Dioxide Level 31mmol/L (21-32) Anion Gap 10 (6-14) Blood Urea Nitrogen 72mg/dL (7-20) Creatinine 1.2mg/dL (0.6-1.0) Estimated GFR (Cockcroft-Gault) 55.3 Glucose Level 149mg/dL (70-99) Lactic Acid Level 1.5mmol/L (0.4-2.0) Calcium Level 9.1mg/dL (8.5-10.1) Phosphorus Level 5.1mg/dL (2.6-4.7) Magnesium Level 2.5mg/dL (1.8-2.4) Total Bilirubin 5.5mg/dL (0.2-1.0) Direct Bilirubin 2.9mg/dL (0.0-0.2) Aspartate Amino Transf (AST/SGOT) 37U/L (15-37) Alanine Aminotransferase (ALT/SGPT) 44U/L (14-59) Alkaline Phosphatase 155U/L (46-116) Total Protein 6.3g/dL (6.4-8.2) Albumin 3.2g/dL (3.4-5.0) Test 08/07/16 08:00 O2 Saturation 99% (92-99) Arterial Blood pH 7.53 (7.35-7.45) Arterial Blood pCO2 at Patient Temp 32mmHg (35-46) Arterial Blood pO2 at Patient Temp 181mmHg (65-108) Arterial Blood HCO3 26mmol/L (21-28) Arterial Blood Base Excess 3mmol/L (-3-3) FiO2 35 Assessment Assessment Problems Medical Problems: (1) Abdominal pain Status: Acute (2) Enterocutaneous fistula Status: Acute (3) Sepsis Status: Acute (4) Urinary tract infection Status: Acute (5) UTI (urinary tract infection) Status: Acute Problems: Plan Plan of Care Problems Medical Problems: (1) Abdominal pain Status: Acute (2) Enterocutaneous fistula Status: Acute (3) Sepsis Status: Acute (4) Urinary tract infection Status: Acute (5) UTI (urinary tract infection) Status: Acute LATOSHA TATUM MD Aug 07, 2016 12:35
[2016-08-07] MEDS: DAPTOMYCIN IV SCH (14:46)
[2016-08-07] MEDS: TPN PER PHARMACY MC PRN (15:07)
--- NOTE | 2016-08-07 15:28 | PDOC2 ---
GI CONSULT Reason For Consult: Elevated bilirubin HPI: HPI: 61 y/o female known to GI/Dr. Ovalle, previously for n/v and abd pain. H/o complicated diverticular disease w/ enterovesical, enterovaginal, and enterocutaneous fistulas, has had numerous surgeries for this (here, [facility], [place]). Additional h/o radium implants for cervical cancer in the past, along w/ SBOs. Previous EGD showed gastritis, and previous colonoscopy w/i 5 years was normal. Admitted earlier this month w/ UTI, complicated w/ ARF and yeast sepsis , now intubated in ICU. GI consult for elevated bilirubin. Review of labs: bili 07/15 was 0.3, on 07/28 was 1.2, on 07/29 was 1.8, on 07/31 was 4, on 08/04 was 5.5, today (08/07) 5.5. CT and abd US unrevealing (s/p cholecystectomy). No h/ o liver disease. Another abd US has been ordered. On TPN. PMH: PMH: HTN, cervical cancer, UE DVT, anxiety, sepsis, CKD, hypothyroidism, appendectom , cholecystectomy, hysterectomy, bilateral hip pinning, multiple laparotomies FH: Family History: No pertinent hx Social History: ALCOHOL: none Drugs: None ROS: Unobtainable. VItals: Vitals: Vital Signs Date Time Temp Pulse Resp B/P Pulse Ox O2 Delivery O2 Flow Rate FiO2 08/07/16 14:50 16 100 Ventilator 08/07/16 12:00 97.5 66 109/68 97.5 Labs: Labs: Laboratory Tests Test 08/06/16 23:35 08/07/16 06:07 08/07/16 06:10 08/07/16 08:00 Glucose (Fingerstick) 201mg/dL (70-99) 140mg/dL (70-99) White Blood Count 6.5x10^3/uL (4.0-11.0) Red Blood Count 2.88x10^6/uL (3.50-5.40) Hemoglobin 7.3g/dL (12.0-15.5) Hematocrit 22.3% (36.0-47.0) Mean Corpuscular Volume 77fL (79-100) Mean Corpuscular Hemoglobin 25pg (25-35) Mean Corpuscular Hemoglobin Concent 33g/dL (31-37) Red Cell Distribution Width 20.0% (11.5-14.5) Platelet Count 40x10^3/uL (140-400) Neutrophils (%) (Auto) 81% (31-73) Lymphocytes (%) (Auto) 13% (24-48) Monocytes (%) (Auto) 6% (0-9) Eosinophils (%) (Auto) 0% (0-3) Basophils (%) (Auto) 0% (0-3) Neutrophils # (Auto) 5.2x10^3uL (1.8-7.7) Lymphocytes # (Auto) 0.9x10^3/uL (1.0-4.8) Monocytes # (Auto) 0.4x10^3/uL (0.0-1.1) Eosinophils # (Auto) 0.0x10^3/uL (0.0-0.7) Basophils # (Auto) 0.0x10^3/uL (0.0-0.2) Prothrombin Time 17.3SEC (11.7-14.0) Prothromb Time International Ratio 1.5 (0.8-1.1) Fibrinogen 121mg/dL (200-440) Sodium Level 145mmol/L (136-145) Potassium Level 2.8mmol/L (3.5-5.1) Chloride Level 104mmol/L (98-107) Carbon Dioxide Level 31mmol/L (21-32) Anion Gap 10 (6-14) Blood Urea Nitrogen 72mg/dL (7-20) Creatinine 1.2mg/dL (0.6-1.0) Estimated GFR (Cockcroft-Gault) 55.3 Glucose Level 149mg/dL (70-99) Lactic Acid Level 1.5mmol/L (0.4-2.0) Calcium Level 9.1mg/dL (8.5-10.1) Phosphorus Level 5.1mg/dL (2.6-4.7) Magnesium Level 2.5mg/dL (1.8-2.4) Total Bilirubin 5.5mg/dL (0.2-1.0) Direct Bilirubin 2.9mg/dL (0.0-0.2) Aspartate Amino Transf (AST/SGOT) 37U/L (15-37) Alanine Aminotransferase (ALT/SGPT) 44U/L (14-59) Alkaline Phosphatase 155U/L (46-116) Total Protein 6.3g/dL (6.4-8.2) Albumin 3.2g/dL (3.4-5.0) O2 Saturation 99% (92-99) Arterial Blood pH 7.53 (7.35-7.45) Arterial Blood pCO2 at Patient Temp 32mmHg (35-46) Arterial Blood pO2 at Patient Temp 181mmHg (65-108) Arterial Blood HCO3 26mmol/L (21-28) Arterial Blood Base Excess 3mmol/L (-3-3) FiO2 35 Test 08/07/16 12:37 Glucose (Fingerstick) 154mg/dL (70-99) Allergies: Coded Allergies: Iodinated Contrast Media - Oral and (Verified Allergy, Severe, Anaphylaxis , 12/05/15) PT HAS BEEN PREMEDICATED BEFORE WITH NO PROBLEMS, 11-27-. vancomycin (Verified Allergy, Severe, Swelling, 12/05/15) adhesive tape (Verified Allergy, Intermediate, Rash, 12/05/15) silver (Verified Allergy, Intermediate, Rash, Tegaderm film, can have on abd but no where else, 12/05/15) codeine (Verified Adverse Reaction, Severe, Nausea and Vomiting, 12/11/15) Medications: Current Medications Medications (Trade) Dose Ordered Sig/Alex Route PRN Reason Start Time Stop Time Status Last Admin Dose Admin Sodium Chloride 160 meq/Sodium Acetate 60 meq/ Potassium Chloride 45 meq/ Potassium Acetate 30 meq/Magnesium Sulfate 25 meq/ Multivitamins/ Minerals 10 ml/ Chromium/Copper/ Manganese/Seleni/ Zn 1 ml/Total Parenteral Nutrition/Amino Acids/Dextrose/ Fat Emulsion Intravenous 1,500 ml @ 62.5 mls/hr TPN CONT IV 08/06/16 22:00 08/07/16 21:59 08/06/16 21:57 Potassium Chloride (KCl Premix 20meq) 50 ml @ 50 mls/hr Q1H IV 08/07/16 08:00 08/07/16 09:59 DC 08/07/16 10:46 Imaging: Imaging: CT A/P w/o contrast 07/15/16 The lung bases are clear. Evaluation of the abdomen and pelvis is limited without intravenous contrast. No discrete liver mass is detected. The spleen is unremarkable. Gallbladder appears to be surgically absent. The pancreas is poorly visualized. No definite adrenal mass is seen. No renal calculi or hydronephrosis is seen. The aorta appears to be normal caliber. Postsurgical changes in the midline abdominal wall is noted. There are postsurgical changes involving multiple bowel loops in the central abdomen with clips and suture material present. There are numerous surgical clips in the pelvis. There is a paucity of intra-abdominal fat, making evaluation difficult. It is very difficult to separate small from large bowel. The overall degree of bowel distention appears to be similar to prior CT from last December. No free air is seen. No free fluid or fluid collection is identified. Bladder is unremarkable. Impression: Compromised study due to absence of intravenous and oral contrast. The overall appearance to the abdomen pelvis appears to be similar to the CT from December 22, 2015. No definite free air, free fluid or fluid collection is identified. No abnormal collections of gas are detected. Abd US 07/28/16 FINDINGS: Aorta/IVC: Poorly seen Pancreas: Poorly seen Liver: Echotexture within normal limits. Gallbladder: Removed Common Bile Duct: Not dilated. Right Kidney: No hydronephrosis. Left Kidney: No hydronephrosis. Spleen: 13 cm, borderline enlarged. IMPRESSION: The common bile duct does not appear dilated post cholecystectomy. CXR 08/07/16 IMPRESSION: 1. No confluent infiltrates. PE: GEN: intubated HEENT: atraumatic LUNGS: on CPAP HEART: RRR ABD: soft, tender, fistulas - bags containing dark pinkish liquid EXTREMITY: BLE edema SKIN: No rashes, no jaundice NEURO/PSYCH: awake A/P: A/P: Elevated bilirubin -trending up this admission -imaging (CT, US) unrevealing ARF, sepsis, JULIO C -intubated in ICU, receiving dialysis, on TPN H/o diverticular disease w/ fistulas, multiple abd surgeries -- Elevated bilirubin possibly related to current illness/meds. Note plans for additional US. MIESHA RICO Aug 07, 2016 15:28
[2016-08-07] MEDS ORDERED: DARBEPOETIN ALFA 60 MCG/0.3 ML DISP.SYRIN. SQ SCH (21:00)
[2016-08-07] MEDS ORDERED: HYDROCORTISONE SOD SUCC/PF 100 MG/2 ML VIAL. IV SCH (21:00)
[2016-08-07] MEDS: DARBEPOETIN ALFA 60 MCG/0.3 ML DISP.SYRIN. SQ SCH (21:41)
[2016-08-07] MEDS ORDERED: AMINO ACID IV SCH ×10 (22:00)
[2016-08-07] MEDS ORDERED: DEXTROSE 70% IV SCH ×10 (22:00)
[2016-08-07] MEDS ORDERED: [UNRECOGNIZED DRUG - OTHER] IV SCH ×10 (22:00)
[2016-08-07] MEDS ORDERED: TOTAL PARENTERAL NUTRITION IV SCH ×10 (22:00)
--- NOTE | 2016-08-07 22:02 | PDOC ---
Provider Note Provider Note She was on a CPAP all day and did well. She is now back on the ventilator for the night Heart rate 70/m. Blood pressure 130/80. Lungs are clear. Both groins were the arterial and venous lines were placed and subsequently removed is clean. There is no hematoma. Discussed with granddaughter. SAMMIE CHRISTENSEN MD Aug 07, 2016 22:02
[2016-08-08] VITALS (28 sets, daily range): BP systolic 117–160; BP diastolic 61–93
[2016-08-08] MEDS: MICAFUNGIN 100 MG in IV DEXTROSE 5% 100 ML IV SCH (01:10)
[2016-08-08] MEDS: FENTANYL STANDARD PCA 30 ML IV PRN ×2 (03:16→10:21)
[2016-08-08] MEDS: INSULIN ASPART 300 UNITS/3 ML INSULN.PEN SQ SCH ×4 (05:57→18:00)
[2016-08-08 06:19] LABS: BASO % 0 % (0-3); EOS % 0 % (0-3); HEMATOCRIT 25.8 % (36.0-47.0); HEMOGLOBIN 8.5 g/dL (12.0-15.5); LYMPH # 1.9 x10^3/uL (1.0-4.8); LYMPH % 19 % (24-48); MEAN CORPUSCULAR HEMOGLOBIN 26 pg (25-35); MEAN CORPUSCULAR HGB CONC 33 g/dL (31-37); MEAN CORPUSCULAR VOLUME 78 fL (79-100); MONO % 10 % (0-9); NEUT % 71 % (31-73); PLATELET COUNT 60 x10^3/uL (140-400); RED BLOOD COUNT 3.32 x10^6/uL (3.50-5.40); RED CELL DISTRIBUTION WIDTH 20.6 % (11.5-14.5); WHITE BLOOD COUNT 10.2 x10^3/uL (4.0-11.0)
[2016-08-08 06:21] LABS: PHOSPHORUS 3.8 mg/dL (2.6-4.7)
[2016-08-08 06:23] LABS: ALBUMIN/GLOBULIN RATIO 0.9 (1.0-1.7); CREATININE 0.9 mg/dL (0.6-1.0); TOTAL BILIRUBIN 5.5 mg/dL (0.2-1.0); TOTAL PROTEIN 6.5 g/dL (6.4-8.2)
[2016-08-08 06:24] LABS: POTASSIUM 2.7 mmol/L (3.5-5.1)
[2016-08-08] MEDS: PANTOPRAZOLE IV PUSH 40 MG VIAL. IVP SCH (07:31)
[2016-08-08] MEDS: IPRATRPIUM/ALBUTEROL 0.5/2.5MG 3 ML NEBU. NEB SCH ×4 (07:31→20:11)
[2016-08-08] MEDS: FUROSEMIDE INJ 100 MG in IV NORMAL SALINE 100ML 100 ML IV PRN (07:32)
[2016-08-08] MEDS: ZINC OXIDE 20% TOPICAL OINTMENT 28GM TUBE. TP SCH ×2 (09:03→21:43)
[2016-08-08] MEDS: LIDOCAINE 5% TOPICAL OINTMENT 35GM TUBE. TP SCH ×2 (09:03→21:43)
--- NOTE | 2016-08-08 09:36 | PDOC ---
Infectious Disease Note Subjective Subjective Intubated. c/o pain. On fentanyl TPN ROS ROS GEN: Denies fevers, chills, sweats CV: Denies chest pain RESP: Denies shortness of air, cough GI: Denies n/v/d Vital Sign Vital Signs Vital Signs Date Time Temp Pulse Resp B/P Pulse Ox O2 Delivery O2 Flow Rate FiO2 08/08/16 09:00 92 16 134/62 100 Ventilator 08/08/16 08:00 98.3 98.3 08/08/16 03:16 50.0 Physical Exam PHYSICAL EXAM GENERAL: ALert, intubated HEENT: icterus. ETT. OGT LUNGS: Clear HEART: S1S2, regular, tachy ABD: Soft, NT, BS present : [place] EXT: No edema, no cyanosis PATIENT SERVICE TECHNICIAN PST: Alert, nods to questions SKIN: No rash RIJ/HDC. clean Labs Lab Laboratory Tests Test 08/07/16 12:37 08/07/16 18:08 08/08/16 00:06 08/08/16 05:00 Glucose (Fingerstick) 154mg/dL (70-99) 169mg/dL (70-99) 158mg/dL (70-99) White Blood Count 10.2x10^3/uL (4.0-11.0) Red Blood Count 3.32x10^6/uL (3.50-5.40) Hemoglobin 8.5g/dL (12.0-15.5) Hematocrit 25.8% (36.0-47.0) Mean Corpuscular Volume 78fL (79-100) Mean Corpuscular Hemoglobin 26pg (25-35) Mean Corpuscular Hemoglobin Concent 33g/dL (31-37) Red Cell Distribution Width 20.6% (11.5-14.5) Platelet Count 60x10^3/uL (140-400) Neutrophils (%) (Auto) 71% (31-73) Lymphocytes (%) (Auto) 19% (24-48) Monocytes (%) (Auto) 10% (0-9) Eosinophils (%) (Auto) 0% (0-3) Basophils (%) (Auto) 0% (0-3) Neutrophils # (Auto) 7.3x10^3uL (1.8-7.7) Lymphocytes # (Auto) 1.9x10^3/uL (1.0-4.8) Monocytes # (Auto) 1.0x10^3/uL (0.0-1.1) Eosinophils # (Auto) 0.0x10^3/uL (0.0-0.7) Basophils # (Auto) 0.0x10^3/uL (0.0-0.2) Fibrinogen 102mg/dL (200-440) Sodium Level 146mmol/L (136-145) Potassium Level 2.7mmol/L (3.5-5.1) Chloride Level 106mmol/L (98-107) Carbon Dioxide Level 31mmol/L (21-32) Anion Gap 9 (6-14) Blood Urea Nitrogen 55mg/dL (7-20) Creatinine 0.9mg/dL (0.6-1.0) Estimated GFR (Cockcroft-Gault) 77.0 BUN/Creatinine Ratio 61 (6-20) Glucose Level 112mg/dL (70-99) Lactic Acid Level 1.3mmol/L (0.4-2.0) Calcium Level 9.0mg/dL (8.5-10.1) Phosphorus Level 3.8mg/dL (2.6-4.7) Magnesium Level 2.0mg/dL (1.8-2.4) Total Bilirubin 5.5mg/dL (0.2-1.0) Aspartate Amino Transf (AST/SGOT) 31U/L (15-37) Alanine Aminotransferase (ALT/SGPT) 47U/L (14-59) Alkaline Phosphatase 178U/L (46-116) Total Protein 6.5g/dL (6.4-8.2) Albumin 3.0g/dL (3.4-5.0) Albumin/Globulin Ratio 0.9 (1.0-1.7) Test 08/08/16 05:28 Glucose (Fingerstick) 109mg/dL (70-99) Micro 08/01. BLOOD CULTURE Preliminary NO GROWTH AFTER 1 DAY Objective Assessment C [place] sepsis - 07/27 - line removed and positive 07/29. OFF Levophed ? DIC with elevated INR - platelets - stable Acute resp failure - intubated -some infiltrates on hydrocortisone JULIO C - getting HD for fluid removal Fever and chills- better Acute Anemia - s/p PRBCs Urine MDR Enterobacter and Amp res Enterococcus 07/15 EC fistula Enterovesicular fistula Abdominal excoriation Plan Plan of Care continue micafungin and daptomycin Wean Tygacil soon (07/31) Repeat Blood cults 08/01 NGTD ECHO neg veg, 07/30 Will need Optho eval Monitor labs. await sensitivities Critically ill Patient seen and examined. Chart reviewed. Case discussed with VP RESEARCH. Agree with above plan MAYELIN COLEMAN APRN Aug 08, 2016 09:36 RUSTY HERNANDEZ MD Aug 08, 2016 15:28
[2016-08-08 09:59] LABS: HCO3 ABG 28 mmol/L (21-28); PCO2 ABG 35 mmHg (35-46); PH ABG 7.51 (7.35-7.45); PO2 ABG 185 mmHg (65-108); SAT O2 ABG 99 % (92-99)
[2016-08-08] MEDS ORDERED: POTASSIUM CHLORIDE 20MEQ 50 ML IV ONE ×2 (10:00→11:15)
[2016-08-08 10:01] LABS: FIO2 ABG 35
[2016-08-08] MEDS: TIGECYCLINE IV SCH ×2 (10:21→21:43)
[2016-08-08] MEDS: NORMAL SALINE IV SCH ×3 (10:21→21:43)
--- NOTE | 2016-08-08 11:09 | PDOC ---
PROGRESS NOTES Subjective Subjective was alert then fell asleep as I was talking to her. lab reviewed. cxr without lung infiltrate.potassium low 2.7 Objective Objective Vital Signs Date Time Temp Pulse Resp B/P Pulse Ox O2 Delivery O2 Flow Rate FiO2 08/08/16 10:51 14 100 Ventilator 08/08/16 10:21 50.0 08/08/16 10:00 102 152/70 08/08/16 08:00 98.3 98.3 Intake and Output 08/08/16 07:00 Intake Total 2273 ml Output Total 4540 ml Balance -2267 ml IV Total 957 ml Other 1316 ml Output Urine Total 1340 ml Drainage Total 2200 ml Other 1000 ml Physical Exam Abdomen: Soft Heart: Regular rate, Normal S1, Normal S2 Extremities: Other (2 plus edema arms) General: Alert HEENT: Atraumatic Lungs: Clear to auscultation Neuro: Other (intubated) Psych/Mental Status: Other (alert then fell asleep) Skin: No rashes Assessment Assessment Problems Medical Problems::ana glabrata fungemia with severe sepsis . off pressors acute hypoxic respiratory failure. intubated on ventilator metabolic encephalopathy improved acute kidney injury due to ATN from sepsis. .improved bilateral lung infiltrates resolved disseminated intravascular coagulation thrombocytopenia due to platelet antibody and sepsis picc associated fungemia with sepsis . picc removed 4. Enterocutaneous fistula. 5. Enterovesical fistula. 6. Anemia of chronic disease. 7. Moderately severe protein calorie malnutrition. elevated bilirubin. suspect cholestasis hypokalemia (1) Abdominal pain Status: Acute (2) Enterocutaneous fistula Status: Acute (3) Sepsis Status: Acute (4) Urinary tract infection Status: Acute (5) UTI (urinary tract infection) Status: Acute Plan Plan of Care ventilator weaning continue iv micafungin and tygacil no dialysis this weekend TPN iv lasix drip replete kcl Comment Review of Relevant I have reviewed the following items lucila (where applicable) has been applied. Labs Laboratory Tests Test 08/06/16 14:04 08/06/16 23:35 08/07/16 06:07 08/07/16 06:10 Glucose (Fingerstick) 148mg/dL (70-99) 201mg/dL (70-99) 140mg/dL (70-99) White Blood Count 6.5x10^3/uL (4.0-11.0) Red Blood Count 2.88x10^6/uL (3.50-5.40) Hemoglobin 7.3g/dL (12.0-15.5) Hematocrit 22.3% (36.0-47.0) Mean Corpuscular Volume 77fL (79-100) Mean Corpuscular Hemoglobin 25pg (25-35) Mean Corpuscular Hemoglobin Concent 33g/dL (31-37) Red Cell Distribution Width 20.0% (11.5-14.5) Platelet Count 40x10^3/uL (140-400) Neutrophils (%) (Auto) 81% (31-73) Lymphocytes (%) (Auto) 13% (24-48) Monocytes (%) (Auto) 6% (0-9) Eosinophils (%) (Auto) 0% (0-3) Basophils (%) (Auto) 0% (0-3) Neutrophils # (Auto) 5.2x10^3uL (1.8-7.7) Lymphocytes # (Auto) 0.9x10^3/uL (1.0-4.8) Monocytes # (Auto) 0.4x10^3/uL (0.0-1.1) Eosinophils # (Auto) 0.0x10^3/uL (0.0-0.7) Basophils # (Auto) 0.0x10^3/uL (0.0-0.2) Prothrombin Time 17.3SEC (11.7-14.0) Prothromb Time International Ratio 1.5 (0.8-1.1) Fibrinogen 121mg/dL (200-440) Sodium Level 145mmol/L (136-145) Potassium Level 2.8mmol/L (3.5-5.1) Chloride Level 104mmol/L (98-107) Carbon Dioxide Level 31mmol/L (21-32) Anion Gap 10 (6-14) Blood Urea Nitrogen 72mg/dL (7-20) Creatinine 1.2mg/dL (0.6-1.0) Estimated GFR (Cockcroft-Gault) 55.3 Glucose Level 149mg/dL (70-99) Lactic Acid Level 1.5mmol/L (0.4-2.0) Calcium Level 9.1mg/dL (8.5-10.1) Phosphorus Level 5.1mg/dL (2.6-4.7) Magnesium Level 2.5mg/dL (1.8-2.4) Total Bilirubin 5.5mg/dL (0.2-1.0) Direct Bilirubin 2.9mg/dL (0.0-0.2) Aspartate Amino Transf (AST/SGOT) 37U/L (15-37) Alanine Aminotransferase (ALT/SGPT) 44U/L (14-59) Alkaline Phosphatase 155U/L (46-116) Total Protein 6.3g/dL (6.4-8.2) Albumin 3.2g/dL (3.4-5.0) Test 08/07/16 08:00 08/07/16 12:37 08/07/16 18:08 08/08/16 00:06 O2 Saturation 99% (92-99) Arterial Blood pH 7.53 (7.35-7.45) Arterial Blood pCO2 at Patient Temp 32mmHg (35-46) Arterial Blood pO2 at Patient Temp 181mmHg (65-108) Arterial Blood HCO3 26mmol/L (21-28) Arterial Blood Base Excess 3mmol/L (-3-3) FiO2 35 Glucose (Fingerstick) 154mg/dL (70-99) 169mg/dL (70-99) 158mg/dL (70-99) Test 08/08/16 05:00 08/08/16 05:28 08/08/16 09:50 White Blood Count 10.2x10^3/uL (4.0-11.0) Red Blood Count 3.32x10^6/uL (3.50-5.40) Hemoglobin 8.5g/dL (12.0-15.5) Hematocrit 25.8% (36.0-47.0) Mean Corpuscular Volume 78fL (79-100) Mean Corpuscular Hemoglobin 26pg (25-35) Mean Corpuscular Hemoglobin Concent 33g/dL (31-37) Red Cell Distribution Width 20.6% (11.5-14.5) Platelet Count 60x10^3/uL (140-400) Neutrophils (%) (Auto) 71% (31-73) Lymphocytes (%) (Auto) 19% (24-48) Monocytes (%) (Auto) 10% (0-9) Eosinophils (%) (Auto) 0% (0-3) Basophils (%) (Auto) 0% (0-3) Neutrophils # (Auto) 7.3x10^3uL (1.8-7.7) Lymphocytes # (Auto) 1.9x10^3/uL (1.0-4.8) Monocytes # (Auto) 1.0x10^3/uL (0.0-1.1) Eosinophils # (Auto) 0.0x10^3/uL (0.0-0.7) Basophils # (Auto) 0.0x10^3/uL (0.0-0.2) Fibrinogen 102mg/dL (200-440) Sodium Level 146mmol/L (136-145) Potassium Level 2.7mmol/L (3.5-5.1) Chloride Level 106mmol/L (98-107) Carbon Dioxide Level 31mmol/L (21-32) Anion Gap 9 (6-14) Blood Urea Nitrogen 55mg/dL (7-20) Creatinine 0.9mg/dL (0.6-1.0) Estimated GFR (Cockcroft-Gault) 77.0 BUN/Creatinine Ratio 61 (6-20) Glucose Level 112mg/dL (70-99) Lactic Acid Level 1.3mmol/L (0.4-2.0) Calcium Level 9.0mg/dL (8.5-10.1) Phosphorus Level 3.8mg/dL (2.6-4.7) Magnesium Level 2.0mg/dL (1.8-2.4) Total Bilirubin 5.5mg/dL (0.2-1.0) Aspartate Amino Transf (AST/SGOT) 31U/L (15-37) Alanine Aminotransferase (ALT/SGPT) 47U/L (14-59) Alkaline Phosphatase 178U/L (46-116) Total Protein 6.5g/dL (6.4-8.2) Albumin 3.0g/dL (3.4-5.0) Albumin/Globulin Ratio 0.9 (1.0-1.7) Glucose (Fingerstick) 109mg/dL (70-99) O2 Saturation 99% (92-99) Arterial Blood pH 7.51 (7.35-7.45) Arterial Blood pCO2 at Patient Temp 35mmHg (35-46) Arterial Blood pO2 at Patient Temp 185mmHg (65-108) Arterial Blood HCO3 28mmol/L (21-28) Arterial Blood Base Excess 4mmol/L (-3-3) FiO2 35 Laboratory Tests Test 08/07/16 12:37 08/07/16 18:08 08/08/16 00:06 08/08/16 05:00 Glucose (Fingerstick) 154mg/dL (70-99) 169mg/dL (70-99) 158mg/dL (70-99) White Blood Count 10.2x10^3/uL (4.0-11.0) Red Blood Count 3.32x10^6/uL (3.50-5.40) Hemoglobin 8.5g/dL (12.0-15.5) Hematocrit 25.8% (36.0-47.0) Mean Corpuscular Volume 78fL (79-100) Mean Corpuscular Hemoglobin 26pg (25-35) Mean Corpuscular Hemoglobin Concent 33g/dL (31-37) Red Cell Distribution Width 20.6% (11.5-14.5) Platelet Count 60x10^3/uL (140-400) Neutrophils (%) (Auto) 71% (31-73) Lymphocytes (%) (Auto) 19% (24-48) Monocytes (%) (Auto) 10% (0-9) Eosinophils (%) (Auto) 0% (0-3) Basophils (%) (Auto) 0% (0-3) Neutrophils # (Auto) 7.3x10^3uL (1.8-7.7) Lymphocytes # (Auto) 1.9x10^3/uL (1.0-4.8) Monocytes # (Auto) 1.0x10^3/uL (0.0-1.1) Eosinophils # (Auto) 0.0x10^3/uL (0.0-0.7) Basophils # (Auto) 0.0x10^3/uL (0.0-0.2) Fibrinogen 102mg/dL (200-440) Sodium Level 146mmol/L (136-145) Potassium Level 2.7mmol/L (3.5-5.1) Chloride Level 106mmol/L (98-107) Carbon Dioxide Level 31mmol/L (21-32) Anion Gap 9 (6-14) Blood Urea Nitrogen 55mg/dL (7-20) Creatinine 0.9mg/dL (0.6-1.0) Estimated GFR (Cockcroft-Gault) 77.0 BUN/Creatinine Ratio 61 (6-20) Glucose Level 112mg/dL (70-99) Lactic Acid Level 1.3mmol/L (0.4-2.0) Calcium Level 9.0mg/dL (8.5-10.1) Phosphorus Level 3.8mg/dL (2.6-4.7) Magnesium Level 2.0mg/dL (1.8-2.4) Total Bilirubin 5.5mg/dL (0.2-1.0) Aspartate Amino Transf (AST/SGOT) 31U/L (15-37) Alanine Aminotransferase (ALT/SGPT) 47U/L (14-59) Alkaline Phosphatase 178U/L (46-116) Total Protein 6.5g/dL (6.4-8.2) Albumin 3.0g/dL (3.4-5.0) Albumin/Globulin Ratio 0.9 (1.0-1.7) Test 08/08/16 05:28 08/08/16 09:50 Glucose (Fingerstick) 109mg/dL (70-99) O2 Saturation 99% (92-99) Arterial Blood pH 7.51 (7.35-7.45) Arterial Blood pCO2 at Patient Temp 35mmHg (35-46) Arterial Blood pO2 at Patient Temp 185mmHg (65-108) Arterial Blood HCO3 28mmol/L (21-28) Arterial Blood Base Excess 4mmol/L (-3-3) FiO2 35 Microbiology 08/01/16 Blood Culture - Final, Complete NO GROWTH AFTER 5 DAYS 07/15/16 Urine Culture - Final, Complete 07/15/16 Urine Culture Result 1 (ROYA) - Final, Complete 07/15/16 Urine Culture Result 2 (ROYA) - Final, Complete 07/15/16 Antimicrobic Susceptibility - Final, Complete 07/29/16 Aerobic Culture - Final, Complete 07/29/16 Aerobic Culture Result 1 (ROYA) - Final, Complete Medications Current Medications Piperacillin Sod/ Tazobactam Sod/ Sodium Chloride (Zosyn/Iv Sodium Chloride 0.9 % 100ml) 100 ml @ 200 mls/hr 1X ONCE IV Last administered on 07/15/16 22:56; Start 07/15/16 at 22:00; Stop 07/15/16 at 22:29; Status DC Fentanyl Citrate 50 mcg 50 mcg PRN Q15MIN PRN IV PAIN GREATER THAN 3/10 Last administered on 07/16/16 00:30; Start 07/15/16 at 21:45; Stop 07/16/16 at 02:00; Status DC Sodium Chloride 1,000 ml @ 1,000 mls/hr 1X ONCE IV Last administered on 21:59; Start 07/15/16 at 22:00; Stop 07/15/16 at 22:59; Status DC Sodium Chloride (Iv Sodium Chloride 0.9% 500ml Bag) 500 ml @ 500 mls/hr 1X ONCE IV Last administered on 07/15/16 22:00; Start 07/15/16 at 22:00; Stop at 22:59; Status DC Ondansetron HCl (Zofran) 4 mg PRN Q8HRS PRN IV NAUSEA/VOMITING; Start 07/15/16 at 23:30; Stop 07/16/16 at 08:52; Status DC Fentanyl Citrate 50 mcg 50 mcg PRN Q2HR PRN IV SEVERE PAIN Last administered on 07/16/16 08:10; Start 07/15/16 at 23:30; Stop 07/16/16 at 08:52; Status DC Sodium Chloride (Iv Sodium Chloride 0.9% 1000ml Bag) 1,000 ml @ 150 mls/hr Q6H40M IV Last administered on 07/15/16 02:00; Start 07/15/16 at 23:45; Stop 07/16/16 at 08:52; Status DC Acetaminophen (Tylenol) 650 mg PRN Q4HRS PRN PO FEVER; Start 07/15/16 at 23:30; Stop 07/16/16 at 23:29; Status DC Info (Do NOT chart on this placeholder) 1 each PRN DAILY PRN MC NEEDS VERIFICATION; Start 07/16/16 at 03:00; Status Cancel Acetaminophen 650 mg 650 mg PRN Q4HRS PRN PO MILD PAIN / TEMP Last administered on 07/28/16 07:42; Start 07/16/16 at 08:45; Stop 07/29/16 at 08:33 ; Status DC Piperacillin Sod/ Tazobactam Sod 3.375 gm/Sodium Chloride 50 ml @ 100 mls/hr Q6HRS IV Last administered on 07/18/16 05:50; Start 07/16/16 at 10:00; Stop 07/18 at 13:28; Status DC Linezolid (Zyvox Premix) 300 ml @ 300 mls/hr Q12HR IV Last administered on 07/18 08:34; Start 07/16/16 at 10:00; Stop 07/18/16 at 13:28; Status DC Hydromorphone HCl (Dilaudid) 2 mg PRN Q4HRS PRN IV MODERATE PAIN Last administered on 07/28/16 23:33; Start 07/16/16 at 08:45 Hydromorphone HCl (Dilaudid) 4 mg PRN Q4HRS PRN IV SEVERE PAIN Last administered on 07/30/16 09:23; Start 07/16/16 at 08:45; Stop 07/31/16 at 15:01 ; Status DC Pantoprazole Sodium (Protonix) 40 mg DAILYAC PO Last administered on 07/27/16 11:11; Start 07/16/16 at 09:30; Stop 07/29/16 at 08:44; Status DC Hyoscyamine (Anaspaz) 0.125 mg Q6HRS PO Last administered on 07/20/16 05:20; Start 07/16/16 at 12:00; Stop 07/20/16 at 08:58; Status DC Phenazopyridine HCl (Pyridium) 200 mg TID PO Last administered on 07/20/16 08: 25; Start 07/16/16 at 09:30; Stop 07/20/16 at 08:58; Status DC Lorazepam (Ativan) 0.5 mg PRN BID PRN PO ANXIETY / AGITATION Last administered on 07/29/16 02:16; Start 07/16/16 at 08:45; Stop 07/31/16 at 15:01; Status DC Simethicone (Gas-X) 80 mg PRN Q4HRS PRN PO GAS / BLOATING Last administered on 07/24/16 22:30; Start 07/16/16 at 08:45; Stop 07/31/16 at 15:01; Status DC Zolpidem Tartrate 5 mg 5 mg PRN QHS PRN PO INSOMNIA Last administered on 23:14; Start 07/16/16 at 08:45; Stop 07/31/16 at 15:01; Status DC Potassium Chloride/Dextrose/ Sod Cl 1,000 ml @ 80 mls/hr [id number] IV Last administered on 07/16/16 10:54; Start 07/16/16 at 09:30; Stop 07/16/16 at 21:59; Status DC Fluconazole/ Sodium Chloride (Diflucan 200mg/ 100ml Premix) 100 ml @ 100 mls/ hr Q24H IV Last administered on 07/18/16 11:43; Start 07/16/16 at 11:00; Stop at 13:28; Status DC Info 1 each 1 each PRN DAILY PRN MC SEE COMMENTS Last administered on 12:41; Start 07/16/16 at 10:00; Stop 08/01/16 at 11:24; Status DC Sodium Chloride 220 meq/Sodium Acetate 90 meq/ Potassium Chloride 50 meq/ Potassium Acetate 15 meq/Potassium Phosphate 10 mmol/ Magnesium Sulfate 50 meq/ Calcium Gluconate 6 meq/ Multivitamins/ Minerals 10 ml/ Chromium/Copper/ Manganese/Seleni/ Zn 1 ml/Total Parenteral Nutrition/Amino Acids/Dextro... 1, 920 ml @ 80 mls/hr TPN CONT IV ; Start 07/16/16 at 22:00; Stop 07/16/16 at 22:00 ; Status DC Sodium Chloride/ Sodium Acetate/ Potassium Chloride/ Potassium Acetate/ Potassium Phosphate/ Magnesium Sulfate/ Calcium Gluconate/ Multivitamins/ Minerals/Chromium/ Copper/Manganese/ Seleni/Zn/Total Parenteral Nutrition/Amino Acids/Dextrose/ Fat Emulsion Intravenous (Sodium Chlori... 1,820 ml @ 75.833 mls/ hr TPN CONT IV Last administered on 07/16/16 21:03; Start 07/16/16 at 22: 00; Stop 07/17/16 at 21:59; Status DC Ondansetron HCl (Zofran) 4 mg PRN Q6HRS PRN IV NAUSEA/VOMITING Last administered on 07/21/16 08:48; Start 07/16/16 at 17:15; Stop 07/31/16 at 15:01; Status DC Diphenhydramine HCl (Benadryl) 25 mg PRN Q6HRS PRN PO ITCHING Last administered on 07/25/16 23:38; Start 07/16/16 at 17:45; Stop 07/31/16 at 15:01 ; Status DC Lidocaine (Xylocaine) 1 sang BID TP Last administered on 08/08/16 09:03; Start 07/17/16 at 09:00 Zinc Oxide 1 sang 1 sang BID TP Last administered on 08/08/16 09:03; Start at 09:30 Sodium Chloride/ Sodium Acetate/ Potassium Chloride/ Potassium Acetate/ Potassium Phosphate/ Magnesium Sulfate/ Calcium Gluconate/ Multivitamins/ Minerals/Chromium/ Copper/Manganese/ Seleni/Zn/Total Parenteral Nutrition/Amino Acids/Dextrose/ Fat Emulsion Intravenous (Sodium Chlori... 1,920 ml @ 80 mls/ hr TPN CONT IV Last administered on 07/17/16 22:13; Start 07/17/16 at 22:00; Stop 07/18/16 at 21:59; Status DC Furosemide 40 mg 40 mg 1X ONCE IVP Last administered on 07/18/16 11:43; Start 07/18/16 at 11:00; Stop 07/18/16 at 11:07; Status DC Sodium Chloride 220 meq/Sodium Acetate 90 meq/ Potassium Chloride 50 meq/ Potassium Acetate 15 meq/Potassium Phosphate 10 mmol/ Magnesium Sulfate 50 meq/ Calcium Gluconate 3 meq/ Multivitamins/ Minerals 10 ml/ Chromium/Copper/ Manganese/Seleni/ Zn 1 ml/Total Parenteral Nutrition/Amino Acids/Dextro... 1, 920 ml @ 80 mls/hr TPN CONT IV Last administered on 07/19/16 00:03; Start 07/18/16 at 22:00; Stop 07/19/16 at 21:59; Status DC Meropenem 1 gm/ Sodium Chloride 100 ml @ 200 mls/hr Q8HRS IV Last administered on 07/20/16 05:21; Start 07/18/16 at 14:00; Stop 07/20/16 at 11:25; Status DC Micafungin Sodium 100 mg/Dextrose 100 ml @ 100 mls/hr Q24H IV Last administered on 07/19/16 15:05; Start 07/18/16 at 14:00; Stop 07/20/16 at 11:25; Status DC Daptomycin/Sodium Chloride (Cubicin/Iv Sodium Chloride 0.9% 50ml) 50 ml @ 100 mls/hr Q24H IV Last administered on 07/19/16 16:56; Start 07/18/16 at 15:00; Stop 07/20/16 at 11:25; Status DC Alteplase, Recombinant (Cathflo) 2 mg 1X ONCE INT CAT Last administered on 07/19 06:24; Start 07/19/16 at 07:00; Stop 07/19/16 at 07:01; Status DC Gentamicin Sulfate 1 each 1 each PRN DAILY PRN MC SEE COMMENTS Last administered on 07/25/16 15:31; Start 07/19/16 at 12:15; Stop 07/25/16 at 16:14 ; Status DC Gentamicin Sulfate/Sodium Chloride (Iv Sodium Chloride 0.9% 100ml) 106.75 ml @ 106.75 mls/hr Q24H IV Last administered on 07/25/16 15:31; Start 07/19/16 at 13 :00; Stop 07/25/16 at 16:12; Status DC Gentamicin Sulfate 1 each 1 each 1X ONCE MC Last administered on 07/19/16 23: 00; Start 07/19/16 at 23:00; Stop 07/19/16 at 23:01; Status DC Sodium Chloride/ Sodium Acetate/ Potassium Chloride/ Potassium Acetate/ Potassium Phosphate/ Magnesium Sulfate/ Calcium Gluconate/ Multivitamins/ Minerals/Chromium/ Copper/Manganese/ Seleni/Zn/Total Parenteral Nutrition/Amino Acids/Dextrose/ Fat Emulsion Intravenous (Sodium Chlori... 1,920 ml @ 80 mls/ hr TPN CONT IV Last administered on 07/19/16 20:51; Start 07/19/16 at 22:00; Stop 07/20/16 at 21:59; Status DC Hyoscyamine (Anaspaz) 0.125 mg PRN Q6HRS PRN PO BLADDER SPASM; Start 07/20/16 at 09:00; Stop 07/31/16 at 15:01; Status DC Phenazopyridine HCl 200 mg 200 mg PRN TID PRN PO BLADDER SPASM Last administered on 07/21/16 20:14; Start 07/20/16 at 09:00; Stop 07/31/16 at 15:01; Status DC Linezolid 300 ml @ 300 mls/hr Q12HR IV Last administered on 07/25/16 09:02; Start 07/20/16 at 12:00; Stop 07/25/16 at 16:12; Status DC Sodium Chloride 220 meq/Sodium Acetate 90 meq/ Potassium Chloride 50 meq/ Potassium Acetate 15 meq/Potassium Phosphate 10 mmol/ Magnesium Sulfate 50 meq/ Calcium Gluconate 3 meq/ Multivitamins/ Minerals 10 ml/ Chromium/Copper/ Manganese/Seleni/ Zn 1 ml/Total Parenteral Nutrition/Amino Acids/Dextro... 1, 920 ml @ 80 mls/hr TPN CONT IV Last administered on 07/20/16 21:30; Start 07/20/16 at 22:00; Stop 07/21/16 at 21:59; Status DC Sodium Chloride/ Sodium Acetate/ Potassium Chloride/ Potassium Acetate/ Potassium Phosphate/ Magnesium Sulfate/ Multivitamins/ Minerals/Chromium/ Copper /Manganese/ Seleni/Zn/Total Parenteral Nutrition/Amino Acids/Dextrose/ Fat Emulsion Intravenous (Sodium Chloride/ Potass... 1,920 ml @ 80 mls/hr TPN CONT IV Last administered on 07/21/16 22:05; Start 07/21/16 at 22:00; Stop at 21:59; Status DC Alteplase, Recombinant 2 mg 2 mg PRN DAILY PRN INT CAT INFLAMMATION Last administered on 07/27/16 11:31; Start 07/21/16 at 15:00 Sodium Chloride 220 meq/Sodium Acetate 90 meq/ Potassium Chloride 50 meq/ Potassium Acetate 15 meq/Potassium Phosphate 10 mmol/ Magnesium Sulfate 50 meq/ Multivitamins/ Minerals 10 ml/ Chromium/Copper/ Manganese/Seleni/ Zn 1 ml/Total Parenteral Nutrition/Amino Acids/Dextrose/ Fat Emuls... 1,920 ml @ 80 mls/hr TPN CONT IV Last administered on 07/22/16 20:53; Start 07/22/16 at 22:00; Stop 07/23/16 at 21:59; Status DC Sodium Chloride/ Sodium Acetate/ Potassium Chloride/ Potassium Acetate/ Potassium Phosphate/ Magnesium Sulfate/ Multivitamins/ Minerals/Chromium/ Copper /Manganese/ Seleni/Zn/Total Parenteral Nutrition/Amino Acids/Dextrose/ Fat Emulsion Intravenous (Sodium Chloride/ Potass... 1,920 ml @ 80 mls/hr TPN CONT IV Last administered on 07/23/16 21:16; Start 07/23/16 at 22:00; Stop 07/24 at 21:59; Status DC Gentamicin Sulfate 1 each 1 each 1X ONCE MC ; Start 07/23/16 at 22:00; Stop 07/23 at 22:01; Status Cancel Sodium Chloride/ Sodium Acetate/ Potassium Chloride/ Potassium Acetate/ Potassium Phosphate/ Magnesium Sulfate/ Multivitamins/ Minerals/Chromium/ Copper /Manganese/ Seleni/Zn/Total Parenteral Nutrition/Amino Acids/Dextrose/ Fat Emulsion Intravenous (Sodium Chloride/ Potass... 1,920 ml @ 80 mls/hr TPN CONT IV Last administered on 07/24/16 21:15; Start 07/24/16 at 22:00; Stop 04/30 at 21:59; Status DC Gentamicin Sulfate 1 each 1X ONCE MC ; Start 07/25/16 at 12:30; Stop 07/25/16 at 12:31; Status Cancel Amlodipine Besylate 5 mg 5 mg DAILY PO Last administered on 07/27/16 11:12; Start 07/25/16 at 12:00; Stop 07/29/16 at 08:44; Status DC Sodium Chloride 220 meq/Sodium Acetate 90 meq/ Potassium Chloride 30 meq/ Potassium Acetate 15 meq/Potassium Phosphate 10 mmol/ Magnesium Sulfate 50 meq/ Multivitamins/ Minerals 10 ml/ Chromium/Copper/ Manganese/Seleni/ Zn 1 ml/Total Parenteral Nutrition/Amino Acids/Dextrose/ Fat Emuls... 1,920 ml @ 80 mls/hr TPN CONT IV Last administered on 07/25/16 22:25; Start 07/25/16 at 22:00; Stop 07/26/16 at 21:59; Status DC Sodium Chloride/ Sodium Acetate/ Potassium Chloride/ Potassium Acetate/ Potassium Phosphate/ Magnesium Sulfate/ Multivitamins/ Minerals/Chromium/ Copper /Manganese/ Seleni/Zn/Total Parenteral Nutrition/Amino Acids/Dextrose/ Fat Emulsion Intravenous (Sodium Chloride/ Potass... 1,920 ml @ 80 mls/hr TPN CONT IV Last administered on 07/26/16 23:16; Start 07/26/16 at 22:00; Stop at 21:59; Status DC Furosemide 20 mg 20 mg 1X ONCE IVP Last administered on 07/27/16 11:31; Start 07/27/16 at 09:00; Stop 07/27/16 at 09:01; Status DC Daptomycin 340 mg/ Sodium Chloride 50 ml @ 100 mls/hr Q24H IV Last administered on 07/29/16 15:05; Start 07/27/16 at 13:00; Stop 07/30/16 at 07:25 ; Status DC Piperacillin Sod/ Tazobactam Sod 3.375 gm/Sodium Chloride 50 ml @ 100 mls/hr Q6HRS IV Last administered on 07/30/16 05:30; Start 07/27/16 at 12:30; Stop at 07:25; Status DC Fluconazole/ Sodium Chloride 100 ml @ 100 mls/hr Q24H IV Last administered on 07/28/16 13:32; Start 07/27/16 at 13:00; Stop 07/29/16 at 00:53; Status DC Sodium Chloride 1,000 ml @ 1,000 mls/hr 1X ONCE IV Last administered on 12:34; Start 07/27/16 at 12:30; Stop 07/27/16 at 13:29; Status DC Sodium Chloride 220 meq/Sodium Acetate 90 meq/ Potassium Chloride 30 meq/ Potassium Acetate 15 meq/Potassium Phosphate 10 mmol/ Magnesium Sulfate 45 meq/ Multivitamins/ Minerals 10 ml/ Chromium/Copper/ Manganese/Seleni/ Zn 1 ml/Total Parenteral Nutrition/Amino Acids/Dextrose/ Fat Emuls... 1,920 ml @ 80 mls/hr TPN CONT IV Last administered on 07/27/16 22:38; Start 07/27/16 at 22:00; Stop 07/28/16 at 21:59; Status DC Sodium Chloride (Iv Sodium Chloride 0.9% 1000ml Bag) 1,000 ml @ 45 mls/hr [id number] IV Last administered on 07/28/16 03:24; Start 07/27/16 at 17:00; Stop 07/28/16 at 10:27; Status DC Acetaminophen 650 mg 650 mg PRN Q6HRS PRN [place] fever Last administered on 03:57; Start 07/27/16 at 16:30; Stop 07/29/16 at 08:33; Status DC Sodium Chloride 1,000 ml @ 427.5 mls/ hr Q2H21M IV Last administered on 19:30; Start 07/27/16 at 19:30; Stop 07/27/16 at 23:30; Status DC Sodium Chloride 220 meq/Sodium Acetate 90 meq/ Potassium Chloride 30 meq/ Potassium Acetate 15 meq/Potassium Phosphate 10 mmol/ Magnesium Sulfate 45 meq/ Multivitamins/ Minerals 10 ml/ Chromium/Copper/ Manganese/Seleni/ Zn 1 ml/Total Parenteral Nutrition/Amino Acids/Dextrose/ Fat Emuls... 1,920 ml @ 80 mls/hr TPN CONT IV Last administered on 07/28/16 21:43; Start 07/28/16 at 22:00; Stop 07/29/16 at 21:59; Status DC Micafungin Sodium/ Dextrose (Mycamine) 100 ml @ 100 mls/hr Q24H IV Last administered on 08/08/16 01:10; Start 07/29/16 at 01:00 Lorazepam (Ativan) 0.05 mg PRN Q4HRS PRN IV ANXIETY / AGITATION; Start at 02:30; Stop 07/29/16 at 02:48; Status DC Lorazepam (Ativan) 0.5 mg PRN Q4HRS PRN IV ANXIETY / AGITATION Last administered on 08/07/16 21:43; Start 07/29/16 at 03:00 Acetaminophen (Tylenol) 650 mg PRN Q4HRS PRN [place] MILD PAIN / TEMP; Start at 08:30 Ketorolac Tromethamine (Toradol) 30 mg PRN Q6HRS PRN IV PAIN/FEVER Last administered on 07/30/16 00:50; Start 07/29/16 at 08:30; Stop 07/30/16 at 13:01 ; Status DC Pantoprazole Sodium 40 mg 40 mg DAILYAC IVP Last administered on 08/08/16 07: 31; Start 07/29/16 at 09:00 Sodium Chloride 1,000 ml @ 45 mls/hr [id number] IV Last administered on 09:17; Start 07/29/16 at 08:45; Stop 07/31/16 at 15:01; Status DC Sodium Chloride/ Sodium Acetate/ Potassium Chloride/ Potassium Acetate/ Potassium Phosphate/ Magnesium Sulfate/ Multivitamins/ Minerals/Chromium/ Copper /Manganese/ Seleni/Zn/Total Parenteral Nutrition/Amino Acids/Dextrose/ Fat Emulsion Intravenous (Sodium Chloride/ Potass... 1,920 ml @ 80 mls/hr TPN CONT IV Last administered on 07/29/16 22:06; Start 07/29/16 at 22:00; Stop at 21:59; Status DC Lidocaine/Sodium Bicarbonate 20 ml 20 ml STK-MED ONCE IJ ; Start 07/29/16 at 13: 13; Stop 07/29/16 at 13:14; Status DC Heparin Sodium/ Sodium Chloride 500 ml @ As Directed STK-MED ONCE .ROUTE ; Start 07/29/16 at 13:13; Stop 07/29/16 at 13:14; Status DC Lidocaine/ Epinephrine (Xylocaine 1%-Epi 1:100,000) 20 ml STK-MED ONCE .ROUTE ; Start 07/29/16 at 13:22; Stop 07/29/16 at 13:23; Status DC Midazolam HCl (Versed) 5 mg STK-MED ONCE .ROUTE ; Start 07/29/16 at 13:32; Stop 07/29/16 at 13:33; Status DC Fentanyl Citrate (Fentanyl 5ml Vial) 250 mcg STK-MED ONCE .ROUTE ; Start at 13:32; Stop 07/29/16 at 13:33; Status DC Heparin Sodium/ Sodium Chloride 1,000 unit 1X ONCE IART Last administered on 13:45; Start 07/29/16 at 13:45; Stop 07/29/16 at 13:48; Status DC Midazolam HCl (Versed) 5 mg 1X ONCE IV Last administered on 07/29/16 13:45; Start 07/29/16 at 13:45; Stop 07/29/16 at 13:48; Status DC Fentanyl Citrate (Fentanyl 5ml Vial) 250 mcg 1X ONCE IV Last administered on 13:45; Start 07/29/16 at 13:45; Stop 07/29/16 at 13:48; Status DC Lidocaine/ Epinephrine 20 ml 20 ml 1X ONCE IJ Last administered on 07/29/16 13:45; Start 07/29/16 at 13:45; Stop 07/29/16 at 13:48; Status DC Sodium Chloride 220 meq/Sodium Acetate 90 meq/ Potassium Chloride 15 meq/ Potassium Acetate 30 meq/Potassium Phosphate 10 mmol/ Magnesium Sulfate 45 meq/ Multivitamins/ Minerals 10 ml/ Chromium/Copper/ Manganese/Seleni/ Zn 1 ml/Total Parenteral Nutrition/Amino Acids/Dextrose/ Fat Emuls... 1,920 ml @ 80 mls/hr TPN CONT IV ; Start 07/30/16 at 22:00; Stop 07/31/16 at 21:59; Status DC Norepinephrine Bitartrate 8 mg/ Sodium Chloride 258 ml @ 1.93 mls/hr 1X ONCE IV Last administered on 07/30/16 11:17; Start 07/30/16 at 11:15; Stop at 15:43; Status DC Norepinephrine Bitartrate/Sodium Chloride (Levophed Vial/ Iv Sodium Chloride 0.9 % 250ml) 258 ml @ 0 mls/hr CONT PRN IV SEE I/O RECORD Last administered on 08/02 19:54; Start 07/30/16 at 11:15; Stop 08/04/16 at 09:29; Status DC Furosemide 60 mg 60 mg 1X ONCE IVP Last administered on 07/30/16 11:14; Start 07/30/16 at 11:15; Stop 07/30/16 at 11:16; Status DC Sodium Chloride 500 ml @ 500 mls/hr Q1H IV Last administered on 07/30/16 17: 04; Start 07/30/16 at 14:30; Stop 07/30/16 at 15:29; Status DC Albumin Human 100 ml @ 100 mls/hr Q8HRS IV Last administered on 07/31/16 05: 37; Start 07/30/16 at 14:30; Stop 07/31/16 at 06:59; Status DC Furosemide/Sodium Chloride (Lasix Drip/Iv Sodium Chloride 0.9% 100ml) 100 ml @ 0 mls/hr CONT PRN IV SEE I/O RECORD Last administered on 07/31/16 03:17; Start 07/30/16 at 14:30; Stop 08/01/16 at 13:19; Status DC Ondansetron HCl (Zofran) 8 mg PRN Q8HRS PRN IV NAUSEA/VOMITING Last administered on 07/30/16 14:38; Start 07/30/16 at 14:30 Sodium Bicarbonate 50 meq 50 meq 1X ONCE IV Last administered on 07/30/16 14: 43; Start 07/30/16 at 14:30; Stop 07/30/16 at 14:31; Status DC Heparin Sodium/ Sodium Chloride 500 ml @ As Directed STK-MED ONCE .ROUTE ; Start 07/30/16 at 14:49; Stop 07/30/16 at 14:50; Status DC Lidocaine HCl 20 ml STK-MED ONCE .ROUTE ; Start 07/30/16 at 14:49; Stop at 14:50; Status DC Midazolam HCl (Versed) 2 mg STK-MED ONCE .ROUTE ; Start 07/30/16 at 15:19; Stop 07/30/16 at 15:20; Status DC Heparin Sodium/ Sodium Chloride 1,000 unit 1X ONCE IART Last administered on 15:44; Start 07/30/16 at 15:45; Stop 07/30/16 at 15:46; Status DC Midazolam HCl (Versed) 1.5 mg 1X ONCE IV Last administered on 07/30/16 15:44 ; Start 07/30/16 at 15:45; Stop 07/30/16 at 15:46; Status DC Lidocaine HCl 20 ml 1X ONCE IJ Last administered on 07/30/16 15:44; Start at 15:45; Stop 07/30/16 at 15:46; Status DC Heparin Sodium (Porcine) 60055 unit 10,000 unit STK-MED ONCE .ROUTE ; Start at 15:54; Stop 07/30/16 at 15:55; Status DC Fentanyl Citrate 30 ml @ 0 mls/hr CONT PRN PRN IV PROTOCOL Last administered on 08/08/16 10:21; Start 07/30/16 at 16:45; Stop 08/08/16 at 11:03; Status DC Sodium Bicarbonate/ Dextrose 1,150 ml @ 125 mls/hr 1X ONCE IV Last administered on 07/30/16 18:34; Start 07/30/16 at 17:30; Stop 07/31/16 at 02:41 ; Status DC Succinylcholine Chloride 200 mg 200 mg STK-MED ONCE .ROUTE ; Start 07/30/16 at 19:47; Stop 07/30/16 at 19:48; Status DC Propofol 100 ml @ As Directed STK-MED ONCE IV ; Start 07/30/16 at 19:48; Stop 07/30/16 at 19:49; Status DC Midazolam HCl (Versed 100mg/ 100ml Premix) 100 ml @ 0 mls/hr CONT PRN IV SEE I/ O RECORD Last administered on 08/03/16 12:18; Start 07/30/16 at 21:15 Sodium Bicarbonate 50 meq 50 meq 1X ONCE IV Last administered on 07/30/16 22: 15; Start 07/30/16 at 22:30; Stop 07/30/16 at 22:31; Status DC Dopamine HCl/ Dextrose 250 ml @ 11.513 mls/ hr CONT PRN IV SEE I/O RECORD Last administered on 07/31/16 20:16; Start 07/30/16 at 22:15; Stop 08/04/16 at 09:29; Status DC Sodium Bicarbonate/ Dextrose 1,150 ml @ 125 mls/hr Q9H12M IV Last administered on 08/01/16 09:30; Start 07/31/16 at 03:00; Stop 08/01/16 at 13:19 ; Status DC Propofol (Diprivan) 1,000 mg STK-MED ONCE IV ; Start 07/30/16 at 20:00; Stop at 08:16; Status DC Succinylcholine Chloride 200 mg 200 mg STK-MED ONCE .ROUTE ; Start 07/30/16 at 20:00; Stop 07/31/16 at 08:16; Status DC Tigecycline 50 mg/ Sodium Chloride 50 ml @ 100 mls/hr Q12HR IV Last administered on 08/04/16 09:01; Start 07/31/16 at 21:00; Stop 08/04/16 at 10:00 ; Status DC Tigecycline/ Sodium Chloride (Tygacil/Iv Sodium Chloride 0.9% 100ml) 100 ml @ 200 mls/hr 1X ONCE IV Last administered on 07/31/16 09:22; Start 07/31/16 at 09:00; Stop 07/31/16 at 09:29; Status DC Darbepoetin Sarbjit 60 mcg 60 mcg WEEKLYHS SQ Last administered on 08/07/16 21:41 ; Start 07/31/16 at 21:00 Albumin Human 100 ml @ 100 mls/hr 1X ONCE IV Last administered on 07/31/16 11:40; Start 07/31/16 at 11:15; Stop 07/31/16 at 12:14; Status DC Albumin Human 100 ml @ 100 mls/hr 1X ONCE IV Last administered on 07/31/16 12:03; Start 07/31/16 at 11:15; Stop 07/31/16 at 12:14; Status DC Sodium Chloride (Iv Sodium Chloride 0.9% 1000ml Bag) 1,000 ml @ 1,000 mls/hr Q1H PRN IV hypotension; Start 07/31/16 at 11:33; Stop 07/31/16 at 17:32; Status DC Info (PHARMACY MONITORING -- do not chart) 1 each PRN DAILY PRN MC SEE COMMENTS ; Start 07/31/16 at 11:45 Info (PHARMACY MONITORING -- do not chart) 1 each PRN DAILY PRN MC SEE COMMENTS ; Start 07/31/16 at 11:45; Status UNV Hydrocortisone Sodium Succinate (Solu-Cortef) 100 mg Q8HRS IV Last administered on 08/04/16 06:16; Start 08/01/16 at 07:00; Stop 08/04/16 at 09:29 ; Status DC Albuterol/ Ipratropium (Duoneb) 3 ml RTQID NEB Last administered on 08/08/16 07:31; Start 08/01/16 at 08:00 Albuterol/ Ipratropium 3 ml 3 ml STK-MED ONCE .ROUTE Last administered on 07:34; Start 08/01/16 at 06:59; Stop 08/01/16 at 07:00; Status DC Sodium Chloride 1,000 ml @ 1,000 mls/hr Q1H PRN IV hypotension; Start 08/01/16 at 06:57; Stop 08/01/16 at 12:56; Status DC Albumin Human (Albuminar) 200 ml @ 200 mls/hr 1X PRN PRN IV Hypotension; Start 08/01/16 at 07:00; Stop 08/01/16 at 12:59; Status DC Info (PHARMACY MONITORING -- do not chart) 1 each PRN DAILY PRN MC SEE COMMENTS ; Start 08/01/16 at 07:00; Status UNV Info 1 each 1 each PRN DAILY PRN MC SEE COMMENTS Last administered on 15:07; Start 08/01/16 at 13:30 Sodium Chloride 220 meq/Sodium Acetate 90 meq/ Potassium Chloride 15 meq/ Potassium Acetate 30 meq/Potassium Phosphate 10 mmol/ Magnesium Sulfate 45 meq/ Multivitamins/ Minerals 10 ml/ Chromium/Copper/ Manganese/Seleni/ Zn 1 ml/Total Parenteral Nutrition/Amino Acids/Dextrose/ Fat Emuls... 1,920 ml @ 80 mls/hr TPN CONT IV Last administered on 08/01/16 21:56; Start 08/01/16 at 22:00; Stop 08/02/16 at 21:59; Status DC Potassium Chloride (KCl Premix 20meq) 50 ml @ 50 mls/hr Q1H IV Last administered on 08/01/16 19:05; Start 08/01/16 at 17:00; Stop 08/01/16 at 18:59 ; Status DC Insulin Aspart 0-6 UNITS TIDWMEALS SQ Last administered on 08/02/16 11:33; Start 08/02/16 at 12:00; Stop 08/02/16 at 14:34; Status DC Sodium Chloride 220 meq/Sodium Acetate 90 meq/ Potassium Chloride 15 meq/ Potassium Acetate 30 meq/Magnesium Sulfate 45 meq/ Multivitamins/ Minerals 10 ml / Chromium/Copper/ Manganese/Seleni/ Zn 1 ml/Total Parenteral Nutrition/Amino Acids/Dextrose/ Fat Emulsion Intravenous 1,920 ml @ 80 mls/hr TPN CONT IV Last administered on 08/02/16 21:34; Start 08/02/16 at 22:00; Stop 08/03/16 at 21:59; Status DC Levofloxacin/ Dextrose 150 ml @ 100 mls/hr 1X ONCE IV Last administered on 14:35; Start 08/02/16 at 14:00; Stop 08/02/16 at 15:29; Status DC Daptomycin/Sodium Chloride (Cubicin/Iv Sodium Chloride 0.9% 50ml) 50 ml @ 100 mls/hr ONCE ONCE IV Last administered on 08/02/16 14:34; Start 08/02/16 at 15 :00; Stop 08/02/16 at 15:29; Status DC Insulin Aspart 0-6 UNITS Q6HRS SQ Last administered on 08/07/16 18:14; Start 08/02/16 at 18:00 Sodium Chloride (Iv Sodium Chloride 0.9% 1000ml Bag) 1,000 ml @ 1,000 mls/hr Q1H PRN IV hypotension; Start 08/03/16 at 07:26; Stop 08/03/16 at 13:25; Status DC Diphenhydramine HCl (Benadryl) 25 mg 1X PRN PRN IV ITCHING; Start 08/03/16 at 07:30; Stop 08/04/16 at 07:29; Status DC Diphenhydramine HCl (Benadryl) 25 mg 1X PRN PRN IV ITCHING; Start 08/03/16 at 07:30; Stop 08/04/16 at 07:29; Status DC Sodium Chloride (Normal Saline Flush) 10 ml 1X PRN PRN IV AP catheter pack; Start 08/03/16 at 07:30; Stop 08/04/16 at 07:29; Status DC Sodium Chloride 10 ml 10 ml 1X PRN PRN IV [employer]ANT catheter pack; Start 08/03/16 at 07:30; Stop 08/04/16 at 07:29; Status DC Sodium Chloride (Iv Sodium Chloride 0.9% 1000ml Bag) 1,000 ml @ 400 mls/hr Q2H30M PRN IV PATENCY; Start 08/03/16 at 07:26; Stop 08/03/16 at 19:25; Status DC Info 1 each 1 each PRN DAILY PRN MC SEE COMMENTS; Start 08/03/16 at 07:30; Status UNV Albumin Human 200 ml @ 200 mls/hr Q2HR IV Last administered on 08/03/16 10:00 ; Start 08/03/16 at 08:44; Stop 08/03/16 at 10:59; Status DC Sodium Chloride 160 meq/Sodium Acetate 60 meq/ Potassium Chloride 15 meq/ Potassium Acetate 30 meq/Magnesium Sulfate 25 meq/ Multivitamins/ Minerals 10 ml / Chromium/Copper/ Manganese/Seleni/ Zn 1 ml/Total Parenteral Nutrition/Amino Acids/Dextrose/ Fat Emulsion Intravenous 1,500 ml @ 62.5 mls/hr TPN CONT IV Last administered on 08/03/16 22:52; Start 08/03/16 at 22:00; Stop 08/04/16 at 21:59; Status DC Levofloxacin/ Dextrose 100 ml @ 100 mls/hr 1X ONCE IV Last administered on 10:50; Start 08/04/16 at 07:30; Stop 08/04/16 at 08:30; Status DC Daptomycin 450 mg/ Sodium Chloride 50 ml @ 100 mls/hr ONCE ONCE IV Last administered on 08/04/16 09:55; Start 08/04/16 at 08:00; Stop 08/04/16 at 08:30 ; Status DC Tigecycline/ Sodium Chloride (Tygacil/Iv Sodium Chloride 0.9% 50ml) 50 ml @ 100 mls/hr Q12HR IV Last administered on 08/08/16 10:21; Start 08/04/16 at 21: 00 Hydrocortisone Sodium Succinate 50 mg 50 mg Q8HRS IV Last administered on 05:39; Start 08/04/16 at 14:00; Stop 08/05/16 at 11:12; Status DC Furosemide 100 mg/ Sodium Chloride 100 ml @ 0 mls/hr CONT PRN IV SEE I/O RECORD Last administered on 08/08/16 07:32; Start 08/04/16 at 11:30 Sodium Chloride 160 meq/Sodium Acetate 60 meq/ Potassium Chloride 15 meq/ Potassium Acetate 30 meq/Magnesium Sulfate 25 meq/ Multivitamins/ Minerals 10 ml / Chromium/Copper/ Manganese/Seleni/ Zn 1 ml/Total Parenteral Nutrition/Amino Acids/Dextrose/ Fat Emulsion Intravenous 1,500 ml @ 62.5 mls/hr TPN CONT IV Last administered on 08/04/16 21:45; Start 08/04/16 at 22:00; Stop 08/06/16 at 08:48; Status DC Sodium Chloride 1,000 ml @ 1,000 mls/hr Q1H PRN IV hypotension; Start 08/04/16 at 12:00; Stop 08/04/16 at 17:59; Status DC Sodium Chloride (Iv Sodium Chloride 0.9% 1000ml Bag) 1,000 ml @ 400 mls/hr Q2H30M PRN IV PATENCY; Start 08/04/16 at 12:00; Stop 08/04/16 at 23:59; Status DC Info 1 each 1 each PRN DAILY PRN MC SEE COMMENTS; Start 08/04/16 at 16:30; Status UNV Levofloxacin/ Dextrose 100 ml @ 100 mls/hr 1X ONCE IV Last administered on 14:27; Start 08/05/16 at 14:00; Stop 08/05/16 at 14:59; Status DC Daptomycin/Sodium Chloride (Cubicin/Iv Sodium Chloride 0.9% 50ml) 50 ml @ 100 mls/hr 1X ONCE IV Last administered on 08/05/16 14:27; Start 08/05/16 at 14: 00; Stop 08/05/16 at 14:29; Status DC Heparin Sodium (Porcine) 10,000 unit STK-MED ONCE .ROUTE ; Start 08/05/16 at 09: 35; Stop 08/05/16 at 09:36; Status DC Lidocaine/Sodium Bicarbonate 20 ml 20 ml STK-MED ONCE IJ ; Start 08/05/16 at 09: 36; Stop 08/05/16 at 09:37; Status DC Heparin Sodium/ Sodium Chloride 500 ml @ As Directed STK-MED ONCE .ROUTE ; Start 08/05/16 at 09:36; Stop 08/05/16 at 09:37; Status DC Lidocaine/Sodium Bicarbonate (Buffered Lidocaine 1%) 2 ml 1X ONCE IJ Last administered on 08/05/16 10:04; Start 08/05/16 at 10:00; Stop 08/05/16 at 10:02 ; Status DC Heparin Sodium/ Sodium Chloride 60 unit 1X ONCE IV Last administered on 10:04; Start 08/05/16 at 10:00; Stop 08/05/16 at 10:02; Status DC Heparin Sodium (Porcine) 2,800 unit 1X ONCE INT CAT Last administered on 10:04; Start 08/05/16 at 10:00; Stop 08/05/16 at 10:02; Status DC Info (PHARMACY MONITORING -- do not chart) 1 each PRN DAILY PRN MC SEE COMMENTS ; Start 08/05/16 at 10:30; Stop 08/05/16 at 10:30; Status DC Info (PHARMACY MONITORING -- do not chart) 1 each PRN DAILY PRN MC SEE COMMENTS ; Start 08/05/16 at 10:30; Stop 08/05/16 at 10:30; Status DC Hydrocortisone Sodium Succinate 50 mg 50 mg BID IV Last administered on 07:49; Start 08/05/16 at 21:00; Stop 08/07/16 at 10:23; Status DC Sodium Chloride 160 meq/Sodium Acetate 60 meq/ Potassium Chloride 15 meq/ Potassium Acetate 30 meq/Magnesium Sulfate 25 meq/ Multivitamins/ Minerals 10 ml / Chromium/Copper/ Manganese/Seleni/ Zn 1 ml/Total Parenteral Nutrition/Amino Acids/Dextrose/ Fat Emulsion Intravenous 1,500 ml @ 62.5 mls/hr TPN CONT IV Last administered on 08/05/16 22:04; Start 08/05/16 at 22:00; Stop 08/06/16 at 21:59; Status DC Daptomycin 500 mg/ Sodium Chloride 50 ml @ 100 mls/hr Q24H IV Last administered on 08/07/16 14:46; Start 08/06/16 at 14:00 Sodium Chloride (Iv Sodium Chloride 0.9% 1000ml Bag) 1,000 ml @ 1,000 mls/hr Q1H PRN IV hypotension; Start 08/06/16 at 08:21; Stop 08/06/16 at 14:20; Status DC Diphenhydramine HCl (Benadryl) 25 mg 1X PRN PRN IV ITCHING; Start 08/06/16 at 08:30; Stop 08/07/16 at 08:29; Status DC Diphenhydramine HCl (Benadryl) 25 mg 1X PRN PRN IV ITCHING; Start 08/06/16 at 08:30; Stop 08/07/16 at 08:29; Status DC Sodium Chloride (Normal Saline Flush) 10 ml 1X PRN PRN IV AP catheter pack; Start 08/06/16 at 08:30; Stop 08/07/16 at 08:29; Status DC Sodium Chloride 10 ml 10 ml 1X PRN PRN IV [employer]ANT catheter pack; Start 08/06/16 at 08:30; Stop 08/07/16 at 08:29; Status DC Sodium Chloride (Iv Sodium Chloride 0.9% 1000ml Bag) 1,000 ml @ 400 mls/hr Q2H30M PRN IV PATENCY; Start 08/06/16 at 08:21; Stop 08/06/16 at 20:20; Status DC Info 1 each 1 each PRN DAILY PRN MC SEE COMMENTS; Start 08/06/16 at 08:30; Status UNV Albumin Human 200 ml @ 200 mls/hr 1X STAT IV Last administered on 08/06/16 10:09; Start 08/06/16 at 09:52; Stop 08/06/16 at 10:51; Status DC Sodium Chloride/ Sodium Acetate/ Potassium Chloride/ Potassium Acetate/ Magnesium Sulfate/ Multivitamins/ Minerals/Chromium/ Copper/Manganese/ Seleni/Zn /Total Parenteral Nutrition/Amino Acids/Dextrose/ Fat Emulsion Intravenous ( Sodium Chloride/ Infuvite Adult/ Multitrace-5 Conc/ Tpn - Tpn Flu... 1,500 ml @ 62.5 mls/hr TPN CONT IV Last administered on 08/06/16 21:57; Start at 22:00; Stop 08/07/16 at 21:59; Status DC Darbepoetin Sarbjit 60 mcg 60 mcg WEEKLYHS SQ ; Start 08/07/16 at 21:00; Status UNV Potassium Chloride (KCl Premix 20meq) 50 ml @ 50 mls/hr Q1H IV Last administered on 08/07/16 10:46; Start 08/07/16 at 08:00; Stop 08/07/16 at 09:59 ; Status DC Hydrocortisone Sodium Succinate 25 mg 25 mg BID IV ; Start 08/07/16 at 21:00; Stop 08/07/16 at 21:00; Status DC Sodium Chloride (Iv Sodium Chloride 0.9% 1000ml Bag) 1,000 ml @ 1,000 mls/hr Q1H PRN IV hypotension; Start 08/07/16 at 12:08; Stop 08/07/16 at 18:07; Status DC Diphenhydramine HCl (Benadryl) 25 mg 1X PRN PRN IV ITCHING; Start 08/07/16 at 12:15; Stop 08/08/16 at 12:14 Diphenhydramine HCl (Benadryl) 25 mg 1X PRN PRN IV ITCHING; Start 08/07/16 at 12:15; Stop 08/08/16 at 12:14 Sodium Chloride (Normal Saline Flush) 10 ml 1X PRN PRN IV AP catheter pack; Start 08/07/16 at 12:15; Stop 08/08/16 at 12:14 Sodium Chloride (Normal Saline Flush) 10 ml 1X PRN PRN IV [employer]ANT catheter pack; Start 08/07/16 at 12:15; Stop 08/08/16 at 12:14 Info (PHARMACY MONITORING -- do not chart) 1 each PRN DAILY PRN MC SEE COMMENTS ; Start 08/07/16 at 12:15; Status UNV Info 1 each 1 each PRN DAILY PRN MC SEE COMMENTS; Start 08/07/16 at 12:15; Status UNV Sodium Chloride 160 meq/Sodium Acetate 60 meq/ Potassium Chloride 55 meq/ Potassium Acetate 30 meq/Magnesium Sulfate 25 meq/ Multivitamins/ Minerals 10 ml / Chromium/Copper/ Manganese/Seleni/ Zn 1 ml/Total Parenteral Nutrition/Amino Acids/Dextrose/ Fat Emulsion Intravenous 1,500 ml @ 62.5 mls/hr TPN CONT IV Last administered on 08/07/16 21:41; Start 08/07/16 at 22:00; Stop 08/08/16 at 21:59 Potassium Chloride (KCl Premix 20meq) 50 ml @ 50 mls/hr 1X ONCE IV Last administered on 08/08/16 09:04; Start 08/08/16 at 10:00; Stop 08/08/16 at 10:59 ; Status DC Fentanyl Citrate (Fentanyl 2ml Vial) 25 mcg PRN Q4HRS PRN IV PAIN; Start at 11:00; Status UNV Active Scripts Active Dilaudid (Hydromorphone Hcl) 4 Mg Tablet 4 Mg PO Q6HRS Phenazopyridine Hcl 200 Mg Tablet 200 Mg PO PRN TID PRN FENTANYL 50mcg/hr (Fentanyl) 1 Each Patch.td72 1 Patch TD Q3DAYS Anaspaz (Hyoscyamine Sulfate) 0.125 Mg Tab.rapdis 0.125 Mg PO Q6HRS PRN Cefpodoxime Proxetil 200 Mg Tablet 200 Mg PO BID Sertraline Hcl 50 Mg Tablet 100 Mg PO DAILY 30 Days Protonix (Pantoprazole Sodium) 40 Mg Tablet.dr 1 Tab PO DAILY Zinc Oxide 56.7 Gm Oint...g. 1 Sang TP BID Lidocaine 35.44 Gm Oint...g. 1 Sang TP BID Ondansetron Odt (Ondansetron) 4 Mg Tab.rapdis 8 Mg PO PRN Q8HRS PRN Gas-X (Simethicone) 80 Mg Tab.chew 80 Mg PO PRN QID PRN Reported Lorazepam 0.5 Mg Tablet 0.5 Mg PO PRN BID PRN Vitals/I & O Vital Sign - Last 24 Hours 08/07/16 08/07/16 08/07/16 08/07/16 12:00 12:00 12:11 13:00 Temp 97.5 97.5 Pulse 66 56 Resp 21 22 B/P 109/68 96/69 Pulse Ox 100 100 100 O2 Delivery Mechanical Ventilator Ventilator Ventilator Ventilator 08/07/16 08/07/16 08/07/16 08/07/16 14:00 14:05 14:50 15:00 Pulse 66 56 Resp 23 16 19 B/P 151/73 144/70 Pulse Ox 100 100 100 100 O2 Delivery Ventilator Ventilator Ventilator Ventilator 08/07/16 08/07/16 08/07/16 08/07/16 16:00 16:00 16:03 17:00 Temp 97.5 97.5 Pulse 56 59 Resp 20 19 B/P 142/75 143/70 Pulse Ox 100 100 100 O2 Delivery Ventilator Mechanical Ventilator Ventilator Ventilator 08/07/16 08/07/16 08/07/16 08/07/16 18:00 18:08 19:00 19:36 Pulse 58 62 Resp 19 18 B/P 138/72 134/65 Pulse Ox 100 100 100 100 O2 Delivery Ventilator Ventilator Ventilator Ventilator 08/07/16 08/07/16 08/07/16 08/07/16 20:00 20:00 21:00 21:25 Temp 97.1 97.1 Pulse 68 60 Resp 18 19 B/P 147/67 134/66 Pulse Ox 100 100 100 O2 Delivery Ventilator Mechanical Ventilator Ventilator Ventilator 08/07/16 08/07/16 08/07/16 08/07/16 21:43 22:00 23:00 23:53 Pulse 64 68 Resp 19 18 18 B/P 136/68 124/69 Pulse Ox 100 100 100 100 O2 Delivery Ventilator Ventilator Ventilator Ventilator 08/08/16 08/08/16 08/08/16 08/08/16 00:00 00:00 01:00 01:15 Temp 97.1 97.1 Pulse 62 68 Resp 19 19 B/P 148/73 144/70 Pulse Ox 100 100 100 O2 Delivery Ventilator Mechanical Ventilator Ventilator Ventilator 08/08/16 08/08/16 08/08/16 08/08/16 02:00 03:00 03:16 03:38 Pulse 60 60 Resp 19 18 B/P 139/61 Pulse Ox 100 100 100 100 O2 Delivery Ventilator Ventilator Ventilator O2 Flow Rate 50.0 08/08/16 08/08/16 08/08/16 08/08/16 04:00 04:00 05:00 05:10 Temp 96.4 96.4 Pulse 74 80 Resp 18 18 B/P 140/79 124/72 Pulse Ox 100 100 100 O2 Delivery Mechanical Ventilator Ventilator Ventilator Ventilator 08/08/16 08/08/16 08/08/16 08/08/16 06:00 07:00 07:32 07:40 Pulse 82 88 Resp 19 18 B/P 120/67 117/66 Pulse Ox 100 100 100 O2 Delivery Ventilator Ventilator Ventilator Ventilator 08/08/16 08/08/16 08/08/16 08/08/16 08:00 08:00 09:00 10:00 Temp 98.3 98.3 Pulse 88 92 102 Resp 17 16 18 B/P 131/65 134/62 152/70 Pulse Ox 100 100 100 O2 Delivery Ventilator Mechanical Ventilator Ventilator Ventilator 08/08/16 08/08/16 10:21 10:51 Resp 14 Pulse Ox 100 100 O2 Delivery Ventilator Ventilator O2 Flow Rate 50.0 Intake and Output 08/07/16 08/07/16 08/08/16 15:00 23:00 07:00 Intake Total 75 ml 882 ml 1316 ml Output Total 1550 ml 1010 ml 1980 ml Balance -1475 ml -128 ml -664 ml BENITA LUTZ MD Aug 08, 2016 11:09
[2016-08-08] MEDS: TPN PER PHARMACY MC PRN ×2 (11:17→13:05)
--- NOTE | 2016-08-08 11:53 | PDOC ---
PROGRESS NOTES Subjective Subjective 61yo female ana glabrata septic shock, JULIO C, VDRF. We were consulted for DIC. Renal function better. On minimal settings and off pressors. Remains on TPN. Labs show evidence of ongoing DIC and has received cryo 08/05 and 08/06. Eyes to voice. Remains intubated Objective Objective Vital Signs Date Time Temp Pulse Resp B/P Pulse Ox O2 Delivery O2 Flow Rate FiO2 08/08/16 11:00 93 15 127/74 100 Ventilator 08/08/16 10:21 50.0 08/08/16 08:00 98.3 98.3 Intake and Output 08/08/16 07:00 Intake Total 2273 ml Output Total 4540 ml Balance -2267 ml IV Total 957 ml Other 1316 ml Output Urine Total 1340 ml Drainage Total 2200 ml Other 1000 ml Physical Exam Abdomen: Soft Heart: Regular rate Extremities: Normal pulses General: Other (Intubated; eyes to voice) HEENT: Atraumatic Lungs: Normal air movement Neck: Supple Skin: Other (Decubitus ulcer present) Assessment Assessment Problems Acute DIC Thrombocytopenia Anemia Ana glabrata sepsis VDRF JULIO C, improving Plan Plan of Care Transfuse 10U cryo today. Goal fibrinogen >100. She is at 102 this morning, but falling and will need another dose. No clinical bleeding. No indication for platelets or PRBC unless develops active bleeding or condition changes. Continue supportive care for sepsis. DIC will improve as her overall condition improves. Comment Review of Relevant I have reviewed the following items lucila (where applicable) has been applied. Labs Laboratory Tests Test 08/06/16 14:04 08/06/16 23:35 08/07/16 06:07 08/07/16 06:10 Glucose (Fingerstick) 148mg/dL (70-99) 201mg/dL (70-99) 140mg/dL (70-99) White Blood Count 6.5x10^3/uL (4.0-11.0) Red Blood Count 2.88x10^6/uL (3.50-5.40) Hemoglobin 7.3g/dL (12.0-15.5) Hematocrit 22.3% (36.0-47.0) Mean Corpuscular Volume 77fL (79-100) Mean Corpuscular Hemoglobin 25pg (25-35) Mean Corpuscular Hemoglobin Concent 33g/dL (31-37) Red Cell Distribution Width 20.0% (11.5-14.5) Platelet Count 40x10^3/uL (140-400) Neutrophils (%) (Auto) 81% (31-73) Lymphocytes (%) (Auto) 13% (24-48) Monocytes (%) (Auto) 6% (0-9) Eosinophils (%) (Auto) 0% (0-3) Basophils (%) (Auto) 0% (0-3) Neutrophils # (Auto) 5.2x10^3uL (1.8-7.7) Lymphocytes # (Auto) 0.9x10^3/uL (1.0-4.8) Monocytes # (Auto) 0.4x10^3/uL (0.0-1.1) Eosinophils # (Auto) 0.0x10^3/uL (0.0-0.7) Basophils # (Auto) 0.0x10^3/uL (0.0-0.2) Prothrombin Time 17.3SEC (11.7-14.0) Prothromb Time International Ratio 1.5 (0.8-1.1) Fibrinogen 121mg/dL (200-440) Sodium Level 145mmol/L (136-145) Potassium Level 2.8mmol/L (3.5-5.1) Chloride Level 104mmol/L (98-107) Carbon Dioxide Level 31mmol/L (21-32) Anion Gap 10 (6-14) Blood Urea Nitrogen 72mg/dL (7-20) Creatinine 1.2mg/dL (0.6-1.0) Estimated GFR (Cockcroft-Gault) 55.3 Glucose Level 149mg/dL (70-99) Lactic Acid Level 1.5mmol/L (0.4-2.0) Calcium Level 9.1mg/dL (8.5-10.1) Phosphorus Level 5.1mg/dL (2.6-4.7) Magnesium Level 2.5mg/dL (1.8-2.4) Total Bilirubin 5.5mg/dL (0.2-1.0) Direct Bilirubin 2.9mg/dL (0.0-0.2) Aspartate Amino Transf (AST/SGOT) 37U/L (15-37) Alanine Aminotransferase (ALT/SGPT) 44U/L (14-59) Alkaline Phosphatase 155U/L (46-116) Total Protein 6.3g/dL (6.4-8.2) Albumin 3.2g/dL (3.4-5.0) Test 08/07/16 08:00 08/07/16 12:37 08/07/16 18:08 08/08/16 00:06 O2 Saturation 99% (92-99) Arterial Blood pH 7.53 (7.35-7.45) Arterial Blood pCO2 at Patient Temp 32mmHg (35-46) Arterial Blood pO2 at Patient Temp 181mmHg (65-108) Arterial Blood HCO3 26mmol/L (21-28) Arterial Blood Base Excess 3mmol/L (-3-3) FiO2 35 Glucose (Fingerstick) 154mg/dL (70-99) 169mg/dL (70-99) 158mg/dL (70-99) Test 08/08/16 05:00 08/08/16 05:28 08/08/16 09:50 White Blood Count 10.2x10^3/uL (4.0-11.0) Red Blood Count 3.32x10^6/uL (3.50-5.40) Hemoglobin 8.5g/dL (12.0-15.5) Hematocrit 25.8% (36.0-47.0) Mean Corpuscular Volume 78fL (79-100) Mean Corpuscular Hemoglobin 26pg (25-35) Mean Corpuscular Hemoglobin Concent 33g/dL (31-37) Red Cell Distribution Width 20.6% (11.5-14.5) Platelet Count 60x10^3/uL (140-400) Neutrophils (%) (Auto) 71% (31-73) Lymphocytes (%) (Auto) 19% (24-48) Monocytes (%) (Auto) 10% (0-9) Eosinophils (%) (Auto) 0% (0-3) Basophils (%) (Auto) 0% (0-3) Neutrophils # (Auto) 7.3x10^3uL (1.8-7.7) Lymphocytes # (Auto) 1.9x10^3/uL (1.0-4.8) Monocytes # (Auto) 1.0x10^3/uL (0.0-1.1) Eosinophils # (Auto) 0.0x10^3/uL (0.0-0.7) Basophils # (Auto) 0.0x10^3/uL (0.0-0.2) Fibrinogen 102mg/dL (200-440) Sodium Level 146mmol/L (136-145) Potassium Level 2.7mmol/L (3.5-5.1) Chloride Level 106mmol/L (98-107) Carbon Dioxide Level 31mmol/L (21-32) Anion Gap 9 (6-14) Blood Urea Nitrogen 55mg/dL (7-20) Creatinine 0.9mg/dL (0.6-1.0) Estimated GFR (Cockcroft-Gault) 77.0 BUN/Creatinine Ratio 61 (6-20) Glucose Level 112mg/dL (70-99) Lactic Acid Level 1.3mmol/L (0.4-2.0) Calcium Level 9.0mg/dL (8.5-10.1) Phosphorus Level 3.8mg/dL (2.6-4.7) Magnesium Level 2.0mg/dL (1.8-2.4) Total Bilirubin 5.5mg/dL (0.2-1.0) Aspartate Amino Transf (AST/SGOT) 31U/L (15-37) Alanine Aminotransferase (ALT/SGPT) 47U/L (14-59) Alkaline Phosphatase 178U/L (46-116) Total Protein 6.5g/dL (6.4-8.2) Albumin 3.0g/dL (3.4-5.0) Albumin/Globulin Ratio 0.9 (1.0-1.7) Glucose (Fingerstick) 109mg/dL (70-99) O2 Saturation 99% (92-99) Arterial Blood pH 7.51 (7.35-7.45) Arterial Blood pCO2 at Patient Temp 35mmHg (35-46) Arterial Blood pO2 at Patient Temp 185mmHg (65-108) Arterial Blood HCO3 28mmol/L (21-28) Arterial Blood Base Excess 4mmol/L (-3-3) FiO2 35 Laboratory Tests Test 08/07/16 12:37 08/07/16 18:08 08/08/16 00:06 08/08/16 05:00 Glucose (Fingerstick) 154mg/dL (70-99) 169mg/dL (70-99) 158mg/dL (70-99) White Blood Count 10.2x10^3/uL (4.0-11.0) Red Blood Count 3.32x10^6/uL (3.50-5.40) Hemoglobin 8.5g/dL (12.0-15.5) Hematocrit 25.8% (36.0-47.0) Mean Corpuscular Volume 78fL (79-100) Mean Corpuscular Hemoglobin 26pg (25-35) Mean Corpuscular Hemoglobin Concent 33g/dL (31-37) Red Cell Distribution Width 20.6% (11.5-14.5) Platelet Count 60x10^3/uL (140-400) Neutrophils (%) (Auto) 71% (31-73) Lymphocytes (%) (Auto) 19% (24-48) Monocytes (%) (Auto) 10% (0-9) Eosinophils (%) (Auto) 0% (0-3) Basophils (%) (Auto) 0% (0-3) Neutrophils # (Auto) 7.3x10^3uL (1.8-7.7) Lymphocytes # (Auto) 1.9x10^3/uL (1.0-4.8) Monocytes # (Auto) 1.0x10^3/uL (0.0-1.1) Eosinophils # (Auto) 0.0x10^3/uL (0.0-0.7) Basophils # (Auto) 0.0x10^3/uL (0.0-0.2) Fibrinogen 102mg/dL (200-440) Sodium Level 146mmol/L (136-145) Potassium Level 2.7mmol/L (3.5-5.1) Chloride Level 106mmol/L (98-107) Carbon Dioxide Level 31mmol/L (21-32) Anion Gap 9 (6-14) Blood Urea Nitrogen 55mg/dL (7-20) Creatinine 0.9mg/dL (0.6-1.0) Estimated GFR (Cockcroft-Gault) 77.0 BUN/Creatinine Ratio 61 (6-20) Glucose Level 112mg/dL (70-99) Lactic Acid Level 1.3mmol/L (0.4-2.0) Calcium Level 9.0mg/dL (8.5-10.1) Phosphorus Level 3.8mg/dL (2.6-4.7) Magnesium Level 2.0mg/dL (1.8-2.4) Total Bilirubin 5.5mg/dL (0.2-1.0) Aspartate Amino Transf (AST/SGOT) 31U/L (15-37) Alanine Aminotransferase (ALT/SGPT) 47U/L (14-59) Alkaline Phosphatase 178U/L (46-116) Total Protein 6.5g/dL (6.4-8.2) Albumin 3.0g/dL (3.4-5.0) Albumin/Globulin Ratio 0.9 (1.0-1.7) Test 08/08/16 05:28 08/08/16 09:50 Glucose (Fingerstick) 109mg/dL (70-99) O2 Saturation 99% (92-99) Arterial Blood pH 7.51 (7.35-7.45) Arterial Blood pCO2 at Patient Temp 35mmHg (35-46) Arterial Blood pO2 at Patient Temp 185mmHg (65-108) Arterial Blood HCO3 28mmol/L (21-28) Arterial Blood Base Excess 4mmol/L (-3-3) FiO2 35 Microbiology 08/01/16 Blood Culture - Final, Complete NO GROWTH AFTER 5 DAYS 07/15/16 Urine Culture - Final, Complete 07/15/16 Urine Culture Result 1 (ROYA) - Final, Complete 07/15/16 Urine Culture Result 2 (ROYA) - Final, Complete 07/15/16 Antimicrobic Susceptibility - Final, Complete 07/29/16 Aerobic Culture - Final, Complete 07/29/16 Aerobic Culture Result 1 (ROYA) - Final, Complete Medications Current Medications Piperacillin Sod/ Tazobactam Sod/ Sodium Chloride (Zosyn/Iv Sodium Chloride 0.9 % 100ml) 100 ml @ 200 mls/hr 1X ONCE IV Last administered on 07/15/16t 22:56; Start 07/15/16 at 22:00; Stop 07/15/16 at 22:29; Status DC Fentanyl Citrate 50 mcg 50 mcg PRN Q15MIN PRN IV PAIN GREATER THAN 3/10 Last administered on 07/16/16 00:30; Start 07/15/16 at 21:45; Stop 07/16/16 at 02:00; Status DC Sodium Chloride 1,000 ml @ 1,000 mls/hr 1X ONCE IV Last administered on 21:59; Start 07/15/16 at 22:00; Stop 07/15/16 at 22:59; Status DC Sodium Chloride (Iv Sodium Chloride 0.9% 500ml Bag) 500 ml @ 500 mls/hr 1X ONCE IV Last administered on 07/15/16 22:00; Start 07/15/16 at 22:00; Stop at 22:59; Status DC Ondansetron HCl (Zofran) 4 mg PRN Q8HRS PRN IV NAUSEA/VOMITING; Start 07/15/16 at 23:30; Stop 07/16/16 at 08:52; Status DC Fentanyl Citrate 50 mcg 50 mcg PRN Q2HR PRN IV SEVERE PAIN Last administered on 07/16/16 08:10; Start 07/15/16 at 23:30; Stop 07/16/16 at 08:52; Status DC Sodium Chloride (Iv Sodium Chloride 0.9% 1000ml Bag) 1,000 ml @ 150 mls/hr Q6H40M IV Last administered on 07/15/16 02:00; Start 07/15/16 at 23:45; Stop 07/16/16 at 08:52; Status DC Acetaminophen (Tylenol) 650 mg PRN Q4HRS PRN PO FEVER; Start 07/15/16 at 23:30; Stop 07/16/16 at 23:29; Status DC Info (Do NOT chart on this placeholder) 1 each PRN DAILY PRN MC NEEDS VERIFICATION; Start 07/16/16 at 03:00; Status Cancel Acetaminophen 650 mg 650 mg PRN Q4HRS PRN PO MILD PAIN / TEMP Last administered on 07/28/16 07:42; Start 07/16/16 at 08:45; Stop 07/29/16 at 08:33 ; Status DC Piperacillin Sod/ Tazobactam Sod 3.375 gm/Sodium Chloride 50 ml @ 100 mls/hr Q6HRS IV Last administered on 07/18/16 05:50; Start 07/16/16 at 10:00; Stop 07/18 at 13:28; Status DC Linezolid (Zyvox Premix) 300 ml @ 300 mls/hr Q12HR IV Last administered on 07/18 08:34; Start 07/16/16 at 10:00; Stop 07/18/16 at 13:28; Status DC Hydromorphone HCl (Dilaudid) 2 mg PRN Q4HRS PRN IV MODERATE PAIN Last administered on 07/28/16 23:33; Start 07/16/16 at 08:45 Hydromorphone HCl (Dilaudid) 4 mg PRN Q4HRS PRN IV SEVERE PAIN Last administered on 07/30/16 09:23; Start 07/16/16 at 08:45; Stop 07/31/16 at 15:01 ; Status DC Pantoprazole Sodium (Protonix) 40 mg DAILYAC PO Last administered on 07/27/16 11:11; Start 07/16/16 at 09:30; Stop 07/29/16 at 08:44; Status DC Hyoscyamine (Anaspaz) 0.125 mg Q6HRS PO Last administered on 07/20/16 05:20; Start 07/16/16 at 12:00; Stop 07/20/16 at 08:58; Status DC Phenazopyridine HCl (Pyridium) 200 mg TID PO Last administered on 07/20/16 08: 25; Start 07/16/16 at 09:30; Stop 07/20/16 at 08:58; Status DC Lorazepam (Ativan) 0.5 mg PRN BID PRN PO ANXIETY / AGITATION Last administered on 07/29/16 02:16; Start 07/16/16 at 08:45; Stop 07/31/16 at 15:01; Status DC Simethicone (Gas-X) 80 mg PRN Q4HRS PRN PO GAS / BLOATING Last administered on 07/24/16 22:30; Start 07/16/16 at 08:45; Stop 07/31/16 at 15:01; Status DC Zolpidem Tartrate 5 mg 5 mg PRN QHS PRN PO INSOMNIA Last administered on 23:14; Start 07/16/16 at 08:45; Stop 07/31/16 at 15:01; Status DC Potassium Chloride/Dextrose/ Sod Cl 1,000 ml @ 80 mls/hr [id number] IV Last administered on 07/16/16 10:54; Start 07/16/16 at 09:30; Stop 07/16/16 at 21:59; Status DC Fluconazole/ Sodium Chloride (Diflucan 200mg/ 100ml Premix) 100 ml @ 100 mls/ hr Q24H IV Last administered on 07/18/16 11:43; Start 07/16/16 at 11:00; Stop at 13:28; Status DC Info 1 each 1 each PRN DAILY PRN MC SEE COMMENTS Last administered on 12:41; Start 07/16/16 at 10:00; Stop 08/01/16 at 11:24; Status DC Sodium Chloride 220 meq/Sodium Acetate 90 meq/ Potassium Chloride 50 meq/ Potassium Acetate 15 meq/Potassium Phosphate 10 mmol/ Magnesium Sulfate 50 meq/ Calcium Gluconate 6 meq/ Multivitamins/ Minerals 10 ml/ Chromium/Copper/ Manganese/Seleni/ Zn 1 ml/Total Parenteral Nutrition/Amino Acids/Dextro... 1, 920 ml @ 80 mls/hr TPN CONT IV ; Start 07/16/16 at 22:00; Stop 07/16/16 at 22:00 ; Status DC Sodium Chloride/ Sodium Acetate/ Potassium Chloride/ Potassium Acetate/ Potassium Phosphate/ Magnesium Sulfate/ Calcium Gluconate/ Multivitamins/ Minerals/Chromium/ Copper/Manganese/ Seleni/Zn/Total Parenteral Nutrition/Amino Acids/Dextrose/ Fat Emulsion Intravenous (Sodium Chlori... 1,820 ml @ 75.833 mls/ hr TPN CONT IV Last administered on 07/16/16 21:03; Start 07/16/16 at 22: 00; Stop 07/17/16 at 21:59; Status DC Ondansetron HCl (Zofran) 4 mg PRN Q6HRS PRN IV NAUSEA/VOMITING Last administered on 07/21/16 08:48; Start 07/16/16 at 17:15; Stop 07/31/16 at 15:01; Status DC Diphenhydramine HCl (Benadryl) 25 mg PRN Q6HRS PRN PO ITCHING Last administered on 07/25/16 23:38; Start 07/16/16 at 17:45; Stop 07/31/16 at 15:01 ; Status DC Lidocaine (Xylocaine) 1 sang BID TP Last administered on 08/08/16 09:03; Start 07/17/16 at 09:00 Zinc Oxide 1 sang 1 sang BID TP Last administered on 08/08/16 09:03; Start at 09:30 Sodium Chloride/ Sodium Acetate/ Potassium Chloride/ Potassium Acetate/ Potassium Phosphate/ Magnesium Sulfate/ Calcium Gluconate/ Multivitamins/ Minerals/Chromium/ Copper/Manganese/ Seleni/Zn/Total Parenteral Nutrition/Amino Acids/Dextrose/ Fat Emulsion Intravenous (Sodium Chlori... 1,920 ml @ 80 mls/ hr TPN CONT IV Last administered on 07/17/16 22:13; Start 07/17/16 at 22:00; Stop 07/18/16 at 21:59; Status DC Furosemide 40 mg 40 mg 1X ONCE IVP Last administered on 07/18/16 11:43; Start 07/18/16 at 11:00; Stop 07/18/16 at 11:07; Status DC Sodium Chloride 220 meq/Sodium Acetate 90 meq/ Potassium Chloride 50 meq/ Potassium Acetate 15 meq/Potassium Phosphate 10 mmol/ Magnesium Sulfate 50 meq/ Calcium Gluconate 3 meq/ Multivitamins/ Minerals 10 ml/ Chromium/Copper/ Manganese/Seleni/ Zn 1 ml/Total Parenteral Nutrition/Amino Acids/Dextro... 1, 920 ml @ 80 mls/hr TPN CONT IV Last administered on 07/19/16 00:03; Start 07/18/16 at 22:00; Stop 07/19/16 at 21:59; Status DC Meropenem 1 gm/ Sodium Chloride 100 ml @ 200 mls/hr Q8HRS IV Last administered on 07/20/16 05:21; Start 07/18/16 at 14:00; Stop 07/20/16 at 11:25; Status DC Micafungin Sodium 100 mg/Dextrose 100 ml @ 100 mls/hr Q24H IV Last administered on 07/19/16 15:05; Start 07/18/16 at 14:00; Stop 07/20/16 at 11:25; Status DC Daptomycin/Sodium Chloride (Cubicin/Iv Sodium Chloride 0.9% 50ml) 50 ml @ 100 mls/hr Q24H IV Last administered on 07/19/16 16:56; Start 07/18/16 at 15:00; Stop 07/20/16 at 11:25; Status DC Alteplase, Recombinant (Cathflo) 2 mg 1X ONCE INT CAT Last administered on 07/19 06:24; Start 07/19/16 at 07:00; Stop 07/19/16 at 07:01; Status DC Gentamicin Sulfate 1 each 1 each PRN DAILY PRN MC SEE COMMENTS Last administered on 07/25/16 15:31; Start 07/19/16 at 12:15; Stop 07/25/16 at 16:14 ; Status DC Gentamicin Sulfate/Sodium Chloride (Iv Sodium Chloride 0.9% 100ml) 106.75 ml @ 106.75 mls/hr Q24H IV Last administered on 07/25/16 15:31; Start 07/19/16 at 13 :00; Stop 07/25/16 at 16:12; Status DC Gentamicin Sulfate 1 each 1 each 1X ONCE MC Last administered on 07/19/16 23: 00; Start 07/19/16 at 23:00; Stop 07/19/16 at 23:01; Status DC Sodium Chloride/ Sodium Acetate/ Potassium Chloride/ Potassium Acetate/ Potassium Phosphate/ Magnesium Sulfate/ Calcium Gluconate/ Multivitamins/ Minerals/Chromium/ Copper/Manganese/ Seleni/Zn/Total Parenteral Nutrition/Amino Acids/Dextrose/ Fat Emulsion Intravenous (Sodium Chlori... 1,920 ml @ 80 mls/ hr TPN CONT IV Last administered on 07/19/16 20:51; Start 07/19/16 at 22:00; Stop 07/20/16 at 21:59; Status DC Hyoscyamine (Anaspaz) 0.125 mg PRN Q6HRS PRN PO BLADDER SPASM; Start 07/20/16 at 09:00; Stop 07/31/16 at 15:01; Status DC Phenazopyridine HCl 200 mg 200 mg PRN TID PRN PO BLADDER SPASM Last administered on 07/21/16 20:14; Start 07/20/16 at 09:00; Stop 07/31/16 at 15:01; Status DC Linezolid 300 ml @ 300 mls/hr Q12HR IV Last administered on 07/25/16 09:02; Start 07/20/16 at 12:00; Stop 07/25/16 at 16:12; Status DC Sodium Chloride 220 meq/Sodium Acetate 90 meq/ Potassium Chloride 50 meq/ Potassium Acetate 15 meq/Potassium Phosphate 10 mmol/ Magnesium Sulfate 50 meq/ Calcium Gluconate 3 meq/ Multivitamins/ Minerals 10 ml/ Chromium/Copper/ Manganese/Seleni/ Zn 1 ml/Total Parenteral Nutrition/Amino Acids/Dextro... 1, 920 ml @ 80 mls/hr TPN CONT IV Last administered on 07/20/16 21:30; Start 07/20/16 at 22:00; Stop 07/21/16 at 21:59; Status DC Sodium Chloride/ Sodium Acetate/ Potassium Chloride/ Potassium Acetate/ Potassium Phosphate/ Magnesium Sulfate/ Multivitamins/ Minerals/Chromium/ Copper /Manganese/ Seleni/Zn/Total Parenteral Nutrition/Amino Acids/Dextrose/ Fat Emulsion Intravenous (Sodium Chloride/ Potass... 1,920 ml @ 80 mls/hr TPN CONT IV Last administered on 07/21/16 22:05; Start 07/21/16 at 22:00; Stop at 21:59; Status DC Alteplase, Recombinant 2 mg 2 mg PRN DAILY PRN INT CAT INFLAMMATION Last administered on 07/27/16 11:31; Start 07/21/16 at 15:00 Sodium Chloride 220 meq/Sodium Acetate 90 meq/ Potassium Chloride 50 meq/ Potassium Acetate 15 meq/Potassium Phosphate 10 mmol/ Magnesium Sulfate 50 meq/ Multivitamins/ Minerals 10 ml/ Chromium/Copper/ Manganese/Seleni/ Zn 1 ml/Total Parenteral Nutrition/Amino Acids/Dextrose/ Fat Emuls... 1,920 ml @ 80 mls/hr TPN CONT IV Last administered on 07/22/16 20:53; Start 07/22/16 at 22:00; Stop 07/23/16 at 21:59; Status DC Sodium Chloride/ Sodium Acetate/ Potassium Chloride/ Potassium Acetate/ Potassium Phosphate/ Magnesium Sulfate/ Multivitamins/ Minerals/Chromium/ Copper /Manganese/ Seleni/Zn/Total Parenteral Nutrition/Amino Acids/Dextrose/ Fat Emulsion Intravenous (Sodium Chloride/ Potass... 1,920 ml @ 80 mls/hr TPN CONT IV Last administered on 07/23/16 21:16; Start 07/23/16 at 22:00; Stop 07/24 at 21:59; Status DC Gentamicin Sulfate 1 each 1 each 1X ONCE MC ; Start 07/23/16 at 22:00; Stop 07/23 at 22:01; Status Cancel Sodium Chloride/ Sodium Acetate/ Potassium Chloride/ Potassium Acetate/ Potassium Phosphate/ Magnesium Sulfate/ Multivitamins/ Minerals/Chromium/ Copper /Manganese/ Seleni/Zn/Total Parenteral Nutrition/Amino Acids/Dextrose/ Fat Emulsion Intravenous (Sodium Chloride/ Potass... 1,920 ml @ 80 mls/hr TPN CONT IV Last administered on 07/24/16 21:15; Start 07/24/16 at 22:00; Stop 04/30 at 21:59; Status DC Gentamicin Sulfate 1 each 1X ONCE MC ; Start 07/25/16 at 12:30; Stop 07/25/16 at 12:31; Status Cancel Amlodipine Besylate 5 mg 5 mg DAILY PO Last administered on 07/27/16 11:12; Start 07/25/16 at 12:00; Stop 07/29/16 at 08:44; Status DC Sodium Chloride 220 meq/Sodium Acetate 90 meq/ Potassium Chloride 30 meq/ Potassium Acetate 15 meq/Potassium Phosphate 10 mmol/ Magnesium Sulfate 50 meq/ Multivitamins/ Minerals 10 ml/ Chromium/Copper/ Manganese/Seleni/ Zn 1 ml/Total Parenteral Nutrition/Amino Acids/Dextrose/ Fat Emuls... 1,920 ml @ 80 mls/hr TPN CONT IV Last administered on 07/25/16 22:25; Start 07/25/16 at 22:00; Stop 07/26/16 at 21:59; Status DC Sodium Chloride/ Sodium Acetate/ Potassium Chloride/ Potassium Acetate/ Potassium Phosphate/ Magnesium Sulfate/ Multivitamins/ Minerals/Chromium/ Copper /Manganese/ Seleni/Zn/Total Parenteral Nutrition/Amino Acids/Dextrose/ Fat Emulsion Intravenous (Sodium Chloride/ Potass... 1,920 ml @ 80 mls/hr TPN CONT IV Last administered on 07/26/16 23:16; Start 07/26/16 at 22:00; Stop at 21:59; Status DC Furosemide 20 mg 20 mg 1X ONCE IVP Last administered on 07/27/16 11:31; Start 07/27/16 at 09:00; Stop 07/27/16 at 09:01; Status DC Daptomycin 340 mg/ Sodium Chloride 50 ml @ 100 mls/hr Q24H IV Last administered on 07/29/16 15:05; Start 07/27/16 at 13:00; Stop 07/30/16 at 07:25 ; Status DC Piperacillin Sod/ Tazobactam Sod 3.375 gm/Sodium Chloride 50 ml @ 100 mls/hr Q6HRS IV Last administered on 07/30/16 05:30; Start 07/27/16 at 12:30; Stop at 07:25; Status DC Fluconazole/ Sodium Chloride 100 ml @ 100 mls/hr Q24H IV Last administered on 07/28/16 13:32; Start 07/27/16 at 13:00; Stop 07/29/16 at 00:53; Status DC Sodium Chloride 1,000 ml @ 1,000 mls/hr 1X ONCE IV Last administered on 12:34; Start 07/27/16 at 12:30; Stop 07/27/16 at 13:29; Status DC Sodium Chloride 220 meq/Sodium Acetate 90 meq/ Potassium Chloride 30 meq/ Potassium Acetate 15 meq/Potassium Phosphate 10 mmol/ Magnesium Sulfate 45 meq/ Multivitamins/ Minerals 10 ml/ Chromium/Copper/ Manganese/Seleni/ Zn 1 ml/Total Parenteral Nutrition/Amino Acids/Dextrose/ Fat Emuls... 1,920 ml @ 80 mls/hr TPN CONT IV Last administered on 07/27/16 22:38; Start 07/27/16 at 22:00; Stop 07/28/16 at 21:59; Status DC Sodium Chloride (Iv Sodium Chloride 0.9% 1000ml Bag) 1,000 ml @ 45 mls/hr [id number] IV Last administered on 07/28/16 03:24; Start 07/27/16 at 17:00; Stop 07/28/16 at 10:27; Status DC Acetaminophen 650 mg 650 mg PRN Q6HRS PRN MD fever Last administered on 03:57; Start 07/27/16 at 16:30; Stop 07/29/16 at 08:33; Status DC Sodium Chloride 1,000 ml @ 427.5 mls/ hr Q2H21M IV Last administered on 19:30; Start 07/27/16 at 19:30; Stop 07/27/16 at 23:30; Status DC Sodium Chloride 220 meq/Sodium Acetate 90 meq/ Potassium Chloride 30 meq/ Potassium Acetate 15 meq/Potassium Phosphate 10 mmol/ Magnesium Sulfate 45 meq/ Multivitamins/ Minerals 10 ml/ Chromium/Copper/ Manganese/Seleni/ Zn 1 ml/Total Parenteral Nutrition/Amino Acids/Dextrose/ Fat Emuls... 1,920 ml @ 80 mls/hr TPN CONT IV Last administered on 07/28/16 21:43; Start 07/28/16 at 22:00; Stop 07/29/16 at 21:59; Status DC Micafungin Sodium/ Dextrose (Mycamine) 100 ml @ 100 mls/hr Q24H IV Last administered on 08/08/16 01:10; Start 07/29/16 at 01:00 Lorazepam (Ativan) 0.05 mg PRN Q4HRS PRN IV ANXIETY / AGITATION; Start at 02:30; Stop 07/29/16 at 02:48; Status DC Lorazepam (Ativan) 0.5 mg PRN Q4HRS PRN IV ANXIETY / AGITATION Last administered on 08/07/16 21:43; Start 07/29/16 at 03:00 Acetaminophen (Tylenol) 650 mg PRN Q4HRS PRN MD MILD PAIN / TEMP; Start at 08:30 Ketorolac Tromethamine (Toradol) 30 mg PRN Q6HRS PRN IV PAIN/FEVER Last administered on 07/30/16 00:50; Start 07/29/16 at 08:30; Stop 07/30/16 at 13:01 ; Status DC Pantoprazole Sodium 40 mg 40 mg DAILYAC IVP Last administered on 08/08/16 07: 31; Start 07/29/16 at 09:00 Sodium Chloride 1,000 ml @ 45 mls/hr [id number] IV Last administered on 09:17; Start 07/29/16 at 08:45; Stop 07/31/16 at 15:01; Status DC Sodium Chloride/ Sodium Acetate/ Potassium Chloride/ Potassium Acetate/ Potassium Phosphate/ Magnesium Sulfate/ Multivitamins/ Minerals/Chromium/ Copper /Manganese/ Seleni/Zn/Total Parenteral Nutrition/Amino Acids/Dextrose/ Fat Emulsion Intravenous (Sodium Chloride/ Potass... 1,920 ml @ 80 mls/hr TPN CONT IV Last administered on 07/29/16 22:06; Start 07/29/16 at 22:00; Stop at 21:59; Status DC Lidocaine/Sodium Bicarbonate 20 ml 20 ml STK-MED ONCE IJ ; Start 07/29/16 at 13: 13; Stop 07/29/16 at 13:14; Status DC Heparin Sodium/ Sodium Chloride 500 ml @ As Directed STK-MED ONCE .ROUTE ; Start 07/29/16 at 13:13; Stop 07/29/16 at 13:14; Status DC Lidocaine/ Epinephrine (Xylocaine 1%-Epi 1:100,000) 20 ml STK-MED ONCE .ROUTE ; Start 07/29/16 at 13:22; Stop 07/29/16 at 13:23; Status DC Midazolam HCl (Versed) 5 mg STK-MED ONCE .ROUTE ; Start 07/29/16 at 13:32; Stop 07/29/16 at 13:33; Status DC Fentanyl Citrate (Fentanyl 5ml Vial) 250 mcg STK-MED ONCE .ROUTE ; Start at 13:32; Stop 07/29/16 at 13:33; Status DC Heparin Sodium/ Sodium Chloride 1,000 unit 1X ONCE IART Last administered on 13:45; Start 07/29/16 at 13:45; Stop 07/29/16 at 13:48; Status DC Midazolam HCl (Versed) 5 mg 1X ONCE IV Last administered on 07/29/16 13:45; Start 07/29/16 at 13:45; Stop 07/29/16 at 13:48; Status DC Fentanyl Citrate (Fentanyl 5ml Vial) 250 mcg 1X ONCE IV Last administered on 13:45; Start 07/29/16 at 13:45; Stop 07/29/16 at 13:48; Status DC Lidocaine/ Epinephrine 20 ml 20 ml 1X ONCE IJ Last administered on 07/29/16 13:45; Start 07/29/16 at 13:45; Stop 07/29/16 at 13:48; Status DC Sodium Chloride 220 meq/Sodium Acetate 90 meq/ Potassium Chloride 15 meq/ Potassium Acetate 30 meq/Potassium Phosphate 10 mmol/ Magnesium Sulfate 45 meq/ Multivitamins/ Minerals 10 ml/ Chromium/Copper/ Manganese/Seleni/ Zn 1 ml/Total Parenteral Nutrition/Amino Acids/Dextrose/ Fat Emuls... 1,920 ml @ 80 mls/hr TPN CONT IV ; Start 07/30/16 at 22:00; Stop 07/31/16 at 21:59; Status DC Norepinephrine Bitartrate 8 mg/ Sodium Chloride 258 ml @ 1.93 mls/hr 1X ONCE IV Last administered on 07/30/16 11:17; Start 07/30/16 at 11:15; Stop at 15:43; Status DC Norepinephrine Bitartrate/Sodium Chloride (Levophed Vial/ Iv Sodium Chloride 0.9 % 250ml) 258 ml @ 0 mls/hr CONT PRN IV SEE I/O RECORD Last administered on 08/02 19:54; Start 07/30/16 at 11:15; Stop 08/04/16 at 09:29; Status DC Furosemide 60 mg 60 mg 1X ONCE IVP Last administered on 07/30/16 11:14; Start 07/30/16 at 11:15; Stop 07/30/16 at 11:16; Status DC Sodium Chloride 500 ml @ 500 mls/hr Q1H IV Last administered on 07/30/16 17: 04; Start 07/30/16 at 14:30; Stop 07/30/16 at 15:29; Status DC Albumin Human 100 ml @ 100 mls/hr Q8HRS IV Last administered on 07/31/16 05: 37; Start 07/30/16 at 14:30; Stop 07/31/16 at 06:59; Status DC Furosemide/Sodium Chloride (Lasix Drip/Iv Sodium Chloride 0.9% 100ml) 100 ml @ 0 mls/hr CONT PRN IV SEE I/O RECORD Last administered on 07/31/16 03:17; Start 07/30/16 at 14:30; Stop 08/01/16 at 13:19; Status DC Ondansetron HCl (Zofran) 8 mg PRN Q8HRS PRN IV NAUSEA/VOMITING Last administered on 07/30/16 14:38; Start 07/30/16 at 14:30 Sodium Bicarbonate 50 meq 50 meq 1X ONCE IV Last administered on 07/30/16 14: 43; Start 07/30/16 at 14:30; Stop 07/30/16 at 14:31; Status DC Heparin Sodium/ Sodium Chloride 500 ml @ As Directed STK-MED ONCE .ROUTE ; Start 07/30/16 at 14:49; Stop 07/30/16 at 14:50; Status DC Lidocaine HCl 20 ml STK-MED ONCE .ROUTE ; Start 07/30/16 at 14:49; Stop at 14:50; Status DC Midazolam HCl (Versed) 2 mg STK-MED ONCE .ROUTE ; Start 07/30/16 at 15:19; Stop 07/30/16 at 15:20; Status DC Heparin Sodium/ Sodium Chloride 1,000 unit 1X ONCE IART Last administered on 15:44; Start 07/30/16 at 15:45; Stop 07/30/16 at 15:46; Status DC Midazolam HCl (Versed) 1.5 mg 1X ONCE IV Last administered on 07/30/16 15:44 ; Start 07/30/16 at 15:45; Stop 07/30/16 at 15:46; Status DC Lidocaine HCl 20 ml 1X ONCE IJ Last administered on 07/30/16 15:44; Start at 15:45; Stop 07/30/16 at 15:46; Status DC Heparin Sodium (Porcine) 78756 unit 10,000 unit STK-MED ONCE .ROUTE ; Start at 15:54; Stop 07/30/16 at 15:55; Status DC Fentanyl Citrate 30 ml @ 0 mls/hr CONT PRN PRN IV PROTOCOL Last administered on 08/08/16 10:21; Start 07/30/16 at 16:45; Stop 08/08/16 at 11:03; Status DC Sodium Bicarbonate/ Dextrose 1,150 ml @ 125 mls/hr 1X ONCE IV Last administered on 07/30/16 18:34; Start 07/30/16 at 17:30; Stop 07/31/16 at 02:41 ; Status DC Succinylcholine Chloride 200 mg 200 mg STK-MED ONCE .ROUTE ; Start 07/30/16 at 19:47; Stop 07/30/16 at 19:48; Status DC Propofol 100 ml @ As Directed STK-MED ONCE IV ; Start 07/30/16 at 19:48; Stop 07/30/16 at 19:49; Status DC Midazolam HCl (Versed 100mg/ 100ml Premix) 100 ml @ 0 mls/hr CONT PRN IV SEE I/ O RECORD Last administered on 08/03/16 12:18; Start 07/30/16 at 21:15 Sodium Bicarbonate 50 meq 50 meq 1X ONCE IV Last administered on 07/30/16 22: 15; Start 07/30/16 at 22:30; Stop 07/30/16 at 22:31; Status DC Dopamine HCl/ Dextrose 250 ml @ 11.513 mls/ hr CONT PRN IV SEE I/O RECORD Last administered on 07/31/16 20:16; Start 07/30/16 at 22:15; Stop 08/04/16 at 09:29; Status DC Sodium Bicarbonate/ Dextrose 1,150 ml @ 125 mls/hr Q9H12M IV Last administered on 08/01/16 09:30; Start 07/31/16 at 03:00; Stop 08/01/16 at 13:19 ; Status DC Propofol (Diprivan) 1,000 mg STK-MED ONCE IV ; Start 07/30/16 at 20:00; Stop at 08:16; Status DC Succinylcholine Chloride 200 mg 200 mg STK-MED ONCE .ROUTE ; Start 07/30/16 at 20:00; Stop 07/31/16 at 08:16; Status DC Tigecycline 50 mg/ Sodium Chloride 50 ml @ 100 mls/hr Q12HR IV Last administered on 08/04/16 09:01; Start 07/31/16 at 21:00; Stop 08/04/16 at 10:00 ; Status DC Tigecycline/ Sodium Chloride (Tygacil/Iv Sodium Chloride 0.9% 100ml) 100 ml @ 200 mls/hr 1X ONCE IV Last administered on 07/31/16 09:22; Start 07/31/16 at 09:00; Stop 07/31/16 at 09:29; Status DC Darbepoetin Sarbjit 60 mcg 60 mcg WEEKLYHS SQ Last administered on 08/07/16 21:41 ; Start 07/31/16 at 21:00 Albumin Human 100 ml @ 100 mls/hr 1X ONCE IV Last administered on 07/31/16 11:40; Start 07/31/16 at 11:15; Stop 07/31/16 at 12:14; Status DC Albumin Human 100 ml @ 100 mls/hr 1X ONCE IV Last administered on 07/31/16 12:03; Start 07/31/16 at 11:15; Stop 07/31/16 at 12:14; Status DC Sodium Chloride (Iv Sodium Chloride 0.9% 1000ml Bag) 1,000 ml @ 1,000 mls/hr Q1H PRN IV hypotension; Start 07/31/16 at 11:33; Stop 07/31/16 at 17:32; Status DC Info (PHARMACY MONITORING -- do not chart) 1 each PRN DAILY PRN MC SEE COMMENTS ; Start 07/31/16 at 11:45 Info (PHARMACY MONITORING -- do not chart) 1 each PRN DAILY PRN MC SEE COMMENTS ; Start 07/31/16 at 11:45; Status UNV Hydrocortisone Sodium Succinate (Solu-Cortef) 100 mg Q8HRS IV Last administered on 08/04/16 06:16; Start 08/01/16 at 07:00; Stop 08/04/16 at 09:29 ; Status DC Albuterol/ Ipratropium (Duoneb) 3 ml RTQID NEB Last administered on 08/08/16 07:31; Start 08/01/16 at 08:00 Albuterol/ Ipratropium 3 ml 3 ml STK-MED ONCE .ROUTE Last administered on 07:34; Start 08/01/16 at 06:59; Stop 08/01/16 at 07:00; Status DC Sodium Chloride 1,000 ml @ 1,000 mls/hr Q1H PRN IV hypotension; Start 08/01/16 at 06:57; Stop 08/01/16 at 12:56; Status DC Albumin Human (Albuminar) 200 ml @ 200 mls/hr 1X PRN PRN IV Hypotension; Start 08/01/16 at 07:00; Stop 08/01/16 at 12:59; Status DC Info (PHARMACY MONITORING -- do not chart) 1 each PRN DAILY PRN MC SEE COMMENTS ; Start 08/01/16 at 07:00; Status UNV Info 1 each 1 each PRN DAILY PRN MC SEE COMMENTS Last administered on 11:17; Start 08/01/16 at 13:30 Sodium Chloride 220 meq/Sodium Acetate 90 meq/ Potassium Chloride 15 meq/ Potassium Acetate 30 meq/Potassium Phosphate 10 mmol/ Magnesium Sulfate 45 meq/ Multivitamins/ Minerals 10 ml/ Chromium/Copper/ Manganese/Seleni/ Zn 1 ml/Total Parenteral Nutrition/Amino Acids/Dextrose/ Fat Emuls... 1,920 ml @ 80 mls/hr TPN CONT IV Last administered on 08/01/16 21:56; Start 08/01/16 at 22:00; Stop 08/02/16 at 21:59; Status DC Potassium Chloride (KCl Premix 20meq) 50 ml @ 50 mls/hr Q1H IV Last administered on 08/01/16 19:05; Start 08/01/16 at 17:00; Stop 08/01/16 at 18:59 ; Status DC Insulin Aspart 0-6 UNITS TIDWMEALS SQ Last administered on 08/02/16 11:33; Start 08/02/16 at 12:00; Stop 08/02/16 at 14:34; Status DC Sodium Chloride 220 meq/Sodium Acetate 90 meq/ Potassium Chloride 15 meq/ Potassium Acetate 30 meq/Magnesium Sulfate 45 meq/ Multivitamins/ Minerals 10 ml / Chromium/Copper/ Manganese/Seleni/ Zn 1 ml/Total Parenteral Nutrition/Amino Acids/Dextrose/ Fat Emulsion Intravenous 1,920 ml @ 80 mls/hr TPN CONT IV Last administered on 08/02/16 21:34; Start 08/02/16 at 22:00; Stop 08/03/16 at 21:59; Status DC Levofloxacin/ Dextrose 150 ml @ 100 mls/hr 1X ONCE IV Last administered on 14:35; Start 08/02/16 at 14:00; Stop 08/02/16 at 15:29; Status DC Daptomycin/Sodium Chloride (Cubicin/Iv Sodium Chloride 0.9% 50ml) 50 ml @ 100 mls/hr ONCE ONCE IV Last administered on 08/02/16 14:34; Start 08/02/16 at 15 :00; Stop 08/02/16 at 15:29; Status DC Insulin Aspart 0-6 UNITS Q6HRS SQ Last administered on 08/07/16 18:14; Start 08/02/16 at 18:00 Sodium Chloride (Iv Sodium Chloride 0.9% 1000ml Bag) 1,000 ml @ 1,000 mls/hr Q1H PRN IV hypotension; Start 08/03/16 at 07:26; Stop 08/03/16 at 13:25; Status DC Diphenhydramine HCl (Benadryl) 25 mg 1X PRN PRN IV ITCHING; Start 08/03/16 at 07:30; Stop 08/04/16 at 07:29; Status DC Diphenhydramine HCl (Benadryl) 25 mg 1X PRN PRN IV ITCHING; Start 08/03/16 at 07:30; Stop 08/04/16 at 07:29; Status DC Sodium Chloride (Normal Saline Flush) 10 ml 1X PRN PRN IV AP catheter pack; Start 08/03/16 at 07:30; Stop 08/04/16 at 07:29; Status DC Sodium Chloride 10 ml 10 ml 1X PRN PRN IV [employer] catheter pack; Start 08/03/16 at 07:30; Stop 08/04/16 at 07:29; Status DC Sodium Chloride (Iv Sodium Chloride 0.9% 1000ml Bag) 1,000 ml @ 400 mls/hr Q2H30M PRN IV PATENCY; Start 08/03/16 at 07:26; Stop 08/03/16 at 19:25; Status DC Info 1 each 1 each PRN DAILY PRN MC SEE COMMENTS; Start 08/03/16 at 07:30; Status UNV Albumin Human 200 ml @ 200 mls/hr Q2HR IV Last administered on 08/03/16 10:00 ; Start 08/03/16 at 08:44; Stop 08/03/16 at 10:59; Status DC Sodium Chloride 160 meq/Sodium Acetate 60 meq/ Potassium Chloride 15 meq/ Potassium Acetate 30 meq/Magnesium Sulfate 25 meq/ Multivitamins/ Minerals 10 ml / Chromium/Copper/ Manganese/Seleni/ Zn 1 ml/Total Parenteral Nutrition/Amino Acids/Dextrose/ Fat Emulsion Intravenous 1,500 ml @ 62.5 mls/hr TPN CONT IV Last administered on 08/03/16 22:52; Start 08/03/16 at 22:00; Stop 08/04/16 at 21:59; Status DC Levofloxacin/ Dextrose 100 ml @ 100 mls/hr 1X ONCE IV Last administered on 10:50; Start 08/04/16 at 07:30; Stop 08/04/16 at 08:30; Status DC Daptomycin 450 mg/ Sodium Chloride 50 ml @ 100 mls/hr ONCE ONCE IV Last administered on 08/04/16 09:55; Start 08/04/16 at 08:00; Stop 08/04/16 at 08:30 ; Status DC Tigecycline/ Sodium Chloride (Tygacil/Iv Sodium Chloride 0.9% 50ml) 50 ml @ 100 mls/hr Q12HR IV Last administered on 08/08/16 10:21; Start 08/04/16 at 21: 00 Hydrocortisone Sodium Succinate 50 mg 50 mg Q8HRS IV Last administered on 05:39; Start 08/04/16 at 14:00; Stop 08/05/16 at 11:12; Status DC Furosemide 100 mg/ Sodium Chloride 100 ml @ 0 mls/hr CONT PRN IV SEE I/O RECORD Last administered on 08/08/16 07:32; Start 08/04/16 at 11:30 Sodium Chloride 160 meq/Sodium Acetate 60 meq/ Potassium Chloride 15 meq/ Potassium Acetate 30 meq/Magnesium Sulfate 25 meq/ Multivitamins/ Minerals 10 ml / Chromium/Copper/ Manganese/Seleni/ Zn 1 ml/Total Parenteral Nutrition/Amino Acids/Dextrose/ Fat Emulsion Intravenous 1,500 ml @ 62.5 mls/hr TPN CONT IV Last administered on 08/04/16 21:45; Start 08/04/16 at 22:00; Stop 08/06/16 at 08:48; Status DC Sodium Chloride 1,000 ml @ 1,000 mls/hr Q1H PRN IV hypotension; Start 08/04/16 at 12:00; Stop 08/04/16 at 17:59; Status DC Sodium Chloride (Iv Sodium Chloride 0.9% 1000ml Bag) 1,000 ml @ 400 mls/hr Q2H30M PRN IV PATENCY; Start 08/04/16 at 12:00; Stop 08/04/16 at 23:59; Status DC Info 1 each 1 each PRN DAILY PRN MC SEE COMMENTS; Start 08/04/16 at 16:30; Status UNV Levofloxacin/ Dextrose 100 ml @ 100 mls/hr 1X ONCE IV Last administered on 14:27; Start 08/05/16 at 14:00; Stop 08/05/16 at 14:59; Status DC Daptomycin/Sodium Chloride (Cubicin/Iv Sodium Chloride 0.9% 50ml) 50 ml @ 100 mls/hr 1X ONCE IV Last administered on 08/05/16 14:27; Start 08/05/16 at 14: 00; Stop 08/05/16 at 14:29; Status DC Heparin Sodium (Porcine) 10,000 unit STK-MED ONCE .ROUTE ; Start 08/05/16 at 09: 35; Stop 08/05/16 at 09:36; Status DC Lidocaine/Sodium Bicarbonate 20 ml 20 ml STK-MED ONCE IJ ; Start 08/05/16 at 09: 36; Stop 08/05/16 at 09:37; Status DC Heparin Sodium/ Sodium Chloride 500 ml @ As Directed STK-MED ONCE .ROUTE ; Start 08/05/16 at 09:36; Stop 08/05/16 at 09:37; Status DC Lidocaine/Sodium Bicarbonate (Buffered Lidocaine 1%) 2 ml 1X ONCE IJ Last administered on 08/05/16 10:04; Start 08/05/16 at 10:00; Stop 08/05/16 at 10:02 ; Status DC Heparin Sodium/ Sodium Chloride 60 unit 1X ONCE IV Last administered on 10:04; Start 08/05/16 at 10:00; Stop 08/05/16 at 10:02; Status DC Heparin Sodium (Porcine) 2,800 unit 1X ONCE INT CAT Last administered on 10:04; Start 08/05/16 at 10:00; Stop 08/05/16 at 10:02; Status DC Info (PHARMACY MONITORING -- do not chart) 1 each PRN DAILY PRN MC SEE COMMENTS ; Start 08/05/16 at 10:30; Stop 08/05/16 at 10:30; Status DC Info (PHARMACY MONITORING -- do not chart) 1 each PRN DAILY PRN MC SEE COMMENTS ; Start 08/05/16 at 10:30; Stop 08/05/16 at 10:30; Status DC Hydrocortisone Sodium Succinate 50 mg 50 mg BID IV Last administered on 07:49; Start 08/05/16 at 21:00; Stop 08/07/16 at 10:23; Status DC Sodium Chloride 160 meq/Sodium Acetate 60 meq/ Potassium Chloride 15 meq/ Potassium Acetate 30 meq/Magnesium Sulfate 25 meq/ Multivitamins/ Minerals 10 ml / Chromium/Copper/ Manganese/Seleni/ Zn 1 ml/Total Parenteral Nutrition/Amino Acids/Dextrose/ Fat Emulsion Intravenous 1,500 ml @ 62.5 mls/hr TPN CONT IV Last administered on 08/05/16 22:04; Start 08/05/16 at 22:00; Stop 08/06/16 at 21:59; Status DC Daptomycin 500 mg/ Sodium Chloride 50 ml @ 100 mls/hr Q24H IV Last administered on 08/07/16 14:46; Start 08/06/16 at 14:00 Sodium Chloride (Iv Sodium Chloride 0.9% 1000ml Bag) 1,000 ml @ 1,000 mls/hr Q1H PRN IV hypotension; Start 08/06/16 at 08:21; Stop 08/06/16 at 14:20; Status DC Diphenhydramine HCl (Benadryl) 25 mg 1X PRN PRN IV ITCHING; Start 08/06/16 at 08:30; Stop 08/07/16 at 08:29; Status DC Diphenhydramine HCl (Benadryl) 25 mg 1X PRN PRN IV ITCHING; Start 08/06/16 at 08:30; Stop 08/07/16 at 08:29; Status DC Sodium Chloride (Normal Saline Flush) 10 ml 1X PRN PRN IV AP catheter pack; Start 08/06/16 at 08:30; Stop 08/07/16 at 08:29; Status DC Sodium Chloride 10 ml 10 ml 1X PRN PRN IV [employer] catheter pack; Start 08/06/16 at 08:30; Stop 08/07/16 at 08:29; Status DC Sodium Chloride (Iv Sodium Chloride 0.9% 1000ml Bag) 1,000 ml @ 400 mls/hr Q2H30M PRN IV PATENCY; Start 08/06/16 at 08:21; Stop 08/06/16 at 20:20; Status DC Info 1 each 1 each PRN DAILY PRN MC SEE COMMENTS; Start 08/06/16 at 08:30; Status UNV Albumin Human 200 ml @ 200 mls/hr 1X STAT IV Last administered on 08/06/16 10:09; Start 08/06/16 at 09:52; Stop 08/06/16 at 10:51; Status DC Sodium Chloride/ Sodium Acetate/ Potassium Chloride/ Potassium Acetate/ Magnesium Sulfate/ Multivitamins/ Minerals/Chromium/ Copper/Manganese/ Seleni/Zn /Total Parenteral Nutrition/Amino Acids/Dextrose/ Fat Emulsion Intravenous ( Sodium Chloride/ Infuvite Adult/ Multitrace-5 Conc/ Tpn - Tpn Flu... 1,500 ml @ 62.5 mls/hr TPN CONT IV Last administered on 08/06/16 21:57; Start at 22:00; Stop 08/07/16 at 21:59; Status DC Darbepoetin Sarbjit 60 mcg 60 mcg WEEKLYHS SQ ; Start 08/07/16 at 21:00; Status UNV Potassium Chloride (KCl Premix 20meq) 50 ml @ 50 mls/hr Q1H IV Last administered on 08/07/16 10:46; Start 08/07/16 at 08:00; Stop 08/07/16 at 09:59 ; Status DC Hydrocortisone Sodium Succinate 25 mg 25 mg BID IV ; Start 08/07/16 at 21:00; Stop 08/07/16 at 21:00; Status DC Sodium Chloride (Iv Sodium Chloride 0.9% 1000ml Bag) 1,000 ml @ 1,000 mls/hr Q1H PRN IV hypotension; Start 08/07/16 at 12:08; Stop 08/07/16 at 18:07; Status DC Diphenhydramine HCl (Benadryl) 25 mg 1X PRN PRN IV ITCHING; Start 08/07/16 at 12:15; Stop 08/08/16 at 12:14 Diphenhydramine HCl (Benadryl) 25 mg 1X PRN PRN IV ITCHING; Start 08/07/16 at 12:15; Stop 08/08/16 at 12:14 Sodium Chloride (Normal Saline Flush) 10 ml 1X PRN PRN IV AP catheter pack; Start 08/07/16 at 12:15; Stop 08/08/16 at 12:14 Sodium Chloride (Normal Saline Flush) 10 ml 1X PRN PRN IV [employer] catheter pack; Start 08/07/16 at 12:15; Stop 08/08/16 at 12:14 Info (PHARMACY MONITORING -- do not chart) 1 each PRN DAILY PRN MC SEE COMMENTS ; Start 08/07/16 at 12:15; Status UNV Info 1 each 1 each PRN DAILY PRN MC SEE COMMENTS; Start 08/07/16 at 12:15; Status UNV Sodium Chloride 160 meq/Sodium Acetate 60 meq/ Potassium Chloride 55 meq/ Potassium Acetate 30 meq/Magnesium Sulfate 25 meq/ Multivitamins/ Minerals 10 ml / Chromium/Copper/ Manganese/Seleni/ Zn 1 ml/Total Parenteral Nutrition/Amino Acids/Dextrose/ Fat Emulsion Intravenous 1,500 ml @ 62.5 mls/hr TPN CONT IV Last administered on 08/07/16 21:41; Start 08/07/16 at 22:00; Stop 08/08/16 at 21:59 Potassium Chloride (KCl Premix 20meq) 50 ml @ 50 mls/hr 1X ONCE IV Last administered on 08/08/16 09:04; Start 08/08/16 at 10:00; Stop 08/08/16 at 10:59 ; Status DC Fentanyl Citrate 25 mcg 25 mcg PRN Q4HRS PRN IV PAIN; Start 08/08/16 at 11:00 Potassium Chloride (KCl Premix 20meq) 50 ml @ 50 mls/hr 1X ONCE IV ; Start at 11:15; Stop 08/08/16 at 12:14 Active Scripts Active Dilaudid (Hydromorphone Hcl) 4 Mg Tablet 4 Mg PO Q6HRS Phenazopyridine Hcl 200 Mg Tablet 200 Mg PO PRN TID PRN FENTANYL 50mcg/hr (Fentanyl) 1 Each Patch.td72 1 Patch TD Q3DAYS Anaspaz (Hyoscyamine Sulfate) 0.125 Mg Tab.rapdis 0.125 Mg PO Q6HRS PRN Cefpodoxime Proxetil 200 Mg Tablet 200 Mg PO BID Sertraline Hcl 50 Mg Tablet 100 Mg PO DAILY 30 Days Protonix (Pantoprazole Sodium) 40 Mg Tablet.dr 1 Tab PO DAILY Zinc Oxide 56.7 Gm Oint...g. 1 Sang TP BID Lidocaine 35.44 Gm Oint...g. 1 Sang TP BID Ondansetron Odt (Ondansetron) 4 Mg Tab.rapdis 8 Mg PO PRN Q8HRS PRN Gas-X (Simethicone) 80 Mg Tab.chew 80 Mg PO PRN QID PRN Reported Lorazepam 0.5 Mg Tablet 0.5 Mg PO PRN BID PRN Vitals/I & O Vital Sign - Last 24 Hours 08/07/16 08/07/16 08/07/16 08/07/16 12:00 12:00 12:11 13:00 Temp 97.5 97.5 Pulse 66 56 Resp 21 22 B/P 109/68 96/69 Pulse Ox 100 100 100 O2 Delivery Mechanical Ventilator Ventilator Ventilator Ventilator 08/07/16 08/07/16 08/07/16 08/07/16 14:00 14:05 14:50 15:00 Pulse 66 56 Resp 23 16 19 B/P 151/73 144/70 Pulse Ox 100 100 100 100 O2 Delivery Ventilator Ventilator Ventilator Ventilator 08/07/16 08/07/16 08/07/16 08/07/16 16:00 16:00 16:03 17:00 Temp 97.5 97.5 Pulse 56 59 Resp 20 19 B/P 142/75 143/70 Pulse Ox 100 100 100 O2 Delivery Ventilator Mechanical Ventilator Ventilator Ventilator 08/07/16 08/07/16 08/07/16 08/07/16 18:00 18:08 19:00 19:36 Pulse 58 62 Resp 19 18 B/P 138/72 134/65 Pulse Ox 100 100 100 100 O2 Delivery Ventilator Ventilator Ventilator Ventilator 08/07/16 08/07/16 08/07/16 08/07/16 20:00 20:00 21:00 21:25 Temp 97.1 97.1 Pulse 68 60 Resp 18 19 B/P 147/67 134/66 Pulse Ox 100 100 100 O2 Delivery Ventilator Mechanical Ventilator Ventilator Ventilator 08/07/16 08/07/16 08/07/16 08/07/16 21:43 22:00 23:00 23:53 Pulse 64 68 Resp 19 18 18 B/P 136/68 124/69 Pulse Ox 100 100 100 100 O2 Delivery Ventilator Ventilator Ventilator Ventilator 08/08/16 08/08/16 08/08/16 08/08/16 00:00 00:00 01:00 01:15 Temp 97.1 97.1 Pulse 62 68 Resp 19 19 B/P 148/73 144/70 Pulse Ox 100 100 100 O2 Delivery Ventilator Mechanical Ventilator Ventilator Ventilator 08/08/16 08/08/16 08/08/16 08/08/16 02:00 03:00 03:16 03:38 Pulse 60 60 Resp 19 18 B/P 139/61 Pulse Ox 100 100 100 100 O2 Delivery Ventilator Ventilator Ventilator O2 Flow Rate 50.0 08/08/16 08/08/16 08/08/16 08/08/16 04:00 04:00 05:00 05:10 Temp 96.4 96.4 Pulse 74 80 Resp 18 18 B/P 140/79 124/72 Pulse Ox 100 100 100 O2 Delivery Mechanical Ventilator Ventilator Ventilator Ventilator 08/08/16 08/08/16 08/08/16 08/08/16 06:00 07:00 07:32 07:40 Pulse 82 88 Resp 19 18 B/P 120/67 117/66 Pulse Ox 100 100 100 O2 Delivery Ventilator Ventilator Ventilator Ventilator 08/08/16 08/08/16 08/08/16 08/08/16 08:00 08:00 09:00 10:00 Temp 98.3 98.3 Pulse 88 92 102 Resp 17 16 18 B/P 131/65 134/62 152/70 Pulse Ox 100 100 100 O2 Delivery Ventilator Mechanical Ventilator Ventilator Ventilator 08/08/16 08/08/16 08/08/16 10:21 10:51 11:00 Pulse 93 Resp 14 15 B/P 127/74 Pulse Ox 100 100 100 O2 Delivery Ventilator Ventilator Ventilator O2 Flow Rate 50.0 Intake and Output 08/07/16 08/07/16 08/08/16 15:00 23:00 07:00 Intake Total 75 ml 882 ml 1316 ml Output Total 1550 ml 1010 ml 1980 ml Balance -1475 ml -128 ml -664 ml ABHI WILL MD Aug 08, 2016 11:53
[2016-08-08] MEDS: HYDROMORPHONE 2 MG/ML VIAL. IV PRN ×3 (12:05→22:55)
[2016-08-08] MEDS: DAPTOMYCIN IV SCH (13:27)
--- NOTE | 2016-08-08 13:55 | PDOC ---
PULMONARY PROGRESS NOTES Subjective too sleepy today on fentanyl Had CPAP 8 hrs 08/07 Vitals Vital Signs Date Time Temp Pulse Resp B/P Pulse Ox O2 Delivery O2 Flow Rate FiO2 08/08/16 13:00 98 14 118/74 100 Ventilator 08/08/16 12:00 97.6 97.6 08/08/16 10:21 50.0 General: Lethargic HEENT: Other (nc at perrl, nose clear, orally intuvated. ) Lungs: Other (decrease bs) Cardiovascular: S1, S2 Abdomen: Soft, Non-tender, Other Skin: Warm Labs Laboratory Tests Test 08/06/16 14:04 08/06/16 23:35 08/07/16 06:07 08/07/16 06:10 Glucose (Fingerstick) 148mg/dL (70-99) 201mg/dL (70-99) 140mg/dL (70-99) White Blood Count 6.5x10^3/uL (4.0-11.0) Red Blood Count 2.88x10^6/uL (3.50-5.40) Hemoglobin 7.3g/dL (12.0-15.5) Hematocrit 22.3% (36.0-47.0) Mean Corpuscular Volume 77fL (79-100) Mean Corpuscular Hemoglobin 25pg (25-35) Mean Corpuscular Hemoglobin Concent 33g/dL (31-37) Red Cell Distribution Width 20.0% (11.5-14.5) Platelet Count 40x10^3/uL (140-400) Neutrophils (%) (Auto) 81% (31-73) Lymphocytes (%) (Auto) 13% (24-48) Monocytes (%) (Auto) 6% (0-9) Eosinophils (%) (Auto) 0% (0-3) Basophils (%) (Auto) 0% (0-3) Neutrophils # (Auto) 5.2x10^3uL (1.8-7.7) Lymphocytes # (Auto) 0.9x10^3/uL (1.0-4.8) Monocytes # (Auto) 0.4x10^3/uL (0.0-1.1) Eosinophils # (Auto) 0.0x10^3/uL (0.0-0.7) Basophils # (Auto) 0.0x10^3/uL (0.0-0.2) Prothrombin Time 17.3SEC (11.7-14.0) Prothromb Time International Ratio 1.5 (0.8-1.1) Fibrinogen 121mg/dL (200-440) Sodium Level 145mmol/L (136-145) Potassium Level 2.8mmol/L (3.5-5.1) Chloride Level 104mmol/L (98-107) Carbon Dioxide Level 31mmol/L (21-32) Anion Gap 10 (6-14) Blood Urea Nitrogen 72mg/dL (7-20) Creatinine 1.2mg/dL (0.6-1.0) Estimated GFR (Cockcroft-Gault) 55.3 Glucose Level 149mg/dL (70-99) Lactic Acid Level 1.5mmol/L (0.4-2.0) Calcium Level 9.1mg/dL (8.5-10.1) Phosphorus Level 5.1mg/dL (2.6-4.7) Magnesium Level 2.5mg/dL (1.8-2.4) Total Bilirubin 5.5mg/dL (0.2-1.0) Direct Bilirubin 2.9mg/dL (0.0-0.2) Aspartate Amino Transf (AST/SGOT) 37U/L (15-37) Alanine Aminotransferase (ALT/SGPT) 44U/L (14-59) Alkaline Phosphatase 155U/L (46-116) Total Protein 6.3g/dL (6.4-8.2) Albumin 3.2g/dL (3.4-5.0) Test 08/07/16 08:00 08/07/16 12:37 08/07/16 18:08 08/08/16 00:06 O2 Saturation 99% (92-99) Arterial Blood pH 7.53 (7.35-7.45) Arterial Blood pCO2 at Patient Temp 32mmHg (35-46) Arterial Blood pO2 at Patient Temp 181mmHg (65-108) Arterial Blood HCO3 26mmol/L (21-28) Arterial Blood Base Excess 3mmol/L (-3-3) FiO2 35 Glucose (Fingerstick) 154mg/dL (70-99) 169mg/dL (70-99) 158mg/dL (70-99) Test 08/08/16 05:00 08/08/16 05:28 08/08/16 09:50 08/08/16 11:40 White Blood Count 10.2x10^3/uL (4.0-11.0) Red Blood Count 3.32x10^6/uL (3.50-5.40) Hemoglobin 8.5g/dL (12.0-15.5) Hematocrit 25.8% (36.0-47.0) Mean Corpuscular Volume 78fL (79-100) Mean Corpuscular Hemoglobin 26pg (25-35) Mean Corpuscular Hemoglobin Concent 33g/dL (31-37) Red Cell Distribution Width 20.6% (11.5-14.5) Platelet Count 60x10^3/uL (140-400) Neutrophils (%) (Auto) 71% (31-73) Lymphocytes (%) (Auto) 19% (24-48) Monocytes (%) (Auto) 10% (0-9) Eosinophils (%) (Auto) 0% (0-3) Basophils (%) (Auto) 0% (0-3) Neutrophils # (Auto) 7.3x10^3uL (1.8-7.7) Lymphocytes # (Auto) 1.9x10^3/uL (1.0-4.8) Monocytes # (Auto) 1.0x10^3/uL (0.0-1.1) Eosinophils # (Auto) 0.0x10^3/uL (0.0-0.7) Basophils # (Auto) 0.0x10^3/uL (0.0-0.2) Fibrinogen 102mg/dL (200-440) Sodium Level 146mmol/L (136-145) Potassium Level 2.7mmol/L (3.5-5.1) Chloride Level 106mmol/L (98-107) Carbon Dioxide Level 31mmol/L (21-32) Anion Gap 9 (6-14) Blood Urea Nitrogen 55mg/dL (7-20) Creatinine 0.9mg/dL (0.6-1.0) Estimated GFR (Cockcroft-Gault) 77.0 BUN/Creatinine Ratio 61 (6-20) Glucose Level 112mg/dL (70-99) Lactic Acid Level 1.3mmol/L (0.4-2.0) Calcium Level 9.0mg/dL (8.5-10.1) Phosphorus Level 3.8mg/dL (2.6-4.7) Magnesium Level 2.0mg/dL (1.8-2.4) Total Bilirubin 5.5mg/dL (0.2-1.0) Aspartate Amino Transf (AST/SGOT) 31U/L (15-37) Alanine Aminotransferase (ALT/SGPT) 47U/L (14-59) Alkaline Phosphatase 178U/L (46-116) Total Protein 6.5g/dL (6.4-8.2) Albumin 3.0g/dL (3.4-5.0) Albumin/Globulin Ratio 0.9 (1.0-1.7) Glucose (Fingerstick) 109mg/dL (70-99) 134mg/dL (70-99) O2 Saturation 99% (92-99) Arterial Blood pH 7.51 (7.35-7.45) Arterial Blood pCO2 at Patient Temp 35mmHg (35-46) Arterial Blood pO2 at Patient Temp 185mmHg (65-108) Arterial Blood HCO3 28mmol/L (21-28) Arterial Blood Base Excess 4mmol/L (-3-3) FiO2 35 Test 08/08/16 13:15 Potassium Level 3.2mmol/L (3.5-5.1) Laboratory Tests Test 08/07/16 18:08 08/08/16 00:06 08/08/16 05:00 08/08/16 05:28 Glucose (Fingerstick) 169mg/dL (70-99) 158mg/dL (70-99) 109mg/dL (70-99) White Blood Count 10.2x10^3/uL (4.0-11.0) Red Blood Count 3.32x10^6/uL (3.50-5.40) Hemoglobin 8.5g/dL (12.0-15.5) Hematocrit 25.8% (36.0-47.0) Mean Corpuscular Volume 78fL (79-100) Mean Corpuscular Hemoglobin 26pg (25-35) Mean Corpuscular Hemoglobin Concent 33g/dL (31-37) Red Cell Distribution Width 20.6% (11.5-14.5) Platelet Count 60x10^3/uL (140-400) Neutrophils (%) (Auto) 71% (31-73) Lymphocytes (%) (Auto) 19% (24-48) Monocytes (%) (Auto) 10% (0-9) Eosinophils (%) (Auto) 0% (0-3) Basophils (%) (Auto) 0% (0-3) Neutrophils # (Auto) 7.3x10^3uL (1.8-7.7) Lymphocytes # (Auto) 1.9x10^3/uL (1.0-4.8) Monocytes # (Auto) 1.0x10^3/uL (0.0-1.1) Eosinophils # (Auto) 0.0x10^3/uL (0.0-0.7) Basophils # (Auto) 0.0x10^3/uL (0.0-0.2) Fibrinogen 102mg/dL (200-440) Sodium Level 146mmol/L (136-145) Potassium Level 2.7mmol/L (3.5-5.1) Chloride Level 106mmol/L (98-107) Carbon Dioxide Level 31mmol/L (21-32) Anion Gap 9 (6-14) Blood Urea Nitrogen 55mg/dL (7-20) Creatinine 0.9mg/dL (0.6-1.0) Estimated GFR (Cockcroft-Gault) 77.0 BUN/Creatinine Ratio 61 (6-20) Glucose Level 112mg/dL (70-99) Lactic Acid Level 1.3mmol/L (0.4-2.0) Calcium Level 9.0mg/dL (8.5-10.1) Phosphorus Level 3.8mg/dL (2.6-4.7) Magnesium Level 2.0mg/dL (1.8-2.4) Total Bilirubin 5.5mg/dL (0.2-1.0) Aspartate Amino Transf (AST/SGOT) 31U/L (15-37) Alanine Aminotransferase (ALT/SGPT) 47U/L (14-59) Alkaline Phosphatase 178U/L (46-116) Total Protein 6.5g/dL (6.4-8.2) Albumin 3.0g/dL (3.4-5.0) Albumin/Globulin Ratio 0.9 (1.0-1.7) Test 08/08/16 09:50 08/08/16 11:40 08/08/16 13:15 O2 Saturation 99% (92-99) Arterial Blood pH 7.51 (7.35-7.45) Arterial Blood pCO2 at Patient Temp 35mmHg (35-46) Arterial Blood pO2 at Patient Temp 185mmHg (65-108) Arterial Blood HCO3 28mmol/L (21-28) Arterial Blood Base Excess 4mmol/L (-3-3) FiO2 35 Glucose (Fingerstick) 134mg/dL (70-99) Potassium Level 3.2mmol/L (3.5-5.1) Medications Active Scripts Medications Dose Route/Sig Days Date Category Dilaudid (Hydromorphone Hcl) 4 Mg Tablet 4 Mg PO Q6HRS 06/29/16 Rx Phenazopyridine Hcl 200 Mg Tablet 200 Mg PO PRN TID PRN 06/29/16 Rx FENTANYL 50mcg/hr (Fentanyl) 1 Each Patch.td72 1 Patch TD Q3DAYS 06/29/16 Rx Anaspaz (Hyoscyamine Sulfate) 0.125 Mg Tab.rapdis 0.125 Mg PO Q6HRS PRN 06/29/16 Rx Cefpodoxime Proxetil 200 Mg Tablet 200 Mg PO BID 06/29/16 Rx Sertraline Hcl 50 Mg Tablet 100 Mg PO DAILY 30 05/12/16 Rx Protonix (Pantoprazole Sodium) 40 Mg Tablet.dr 1 Tab PO DAILY 12/27/15 Rx Zinc Oxide 56.7 Gm Oint...g. 1 Sang TP BID 12/18/15 Rx Lidocaine 35.44 Gm Oint...g. 1 Sang TP BID 12/18/15 Rx Ondansetron Odt (Ondansetron) 4 Mg Tab.rapdis 8 Mg PO PRN Q8HRS PRN 07/03/15 Rx Gas-X (Simethicone) 80 Mg Tab.chew 80 Mg PO PRN QID PRN 09/30/14 Rx Lorazepam 0.5 Mg Tablet 0.5 Mg PO PRN BID PRN 11/08/13 Reported Comments CXR 08/07 RESOLVED CHF Impression . 1. Acute respiratory failure, multifactorial. 2. Septic shock. off pressors 3. Bilateral pulmonary infiltrates compatible with pulmonary edema, /doubt pneumonia. resolved 4. Fungemia./Urine MDR Enterobacter and Amp res Enterococcus 07/15 5. Chronic enterocutaneous fistula. 6. Metabolic toxic encephalopathy. 7. Acute renal failure. 8. Egenavja-bg-yevjys protein malnutrition, present upon admission. 9. Metabolic acidosis. resolved 10.Thrombocytopenia, sepsis induced Plan . Too sleepy for CPAP trial today d/w RN/ dc fentanyl , use prn only for pain CPAP trial in am once more awake pain control abx per ID off solucortef, bronchodilator monitor Plt cont abx, antifungal per ID protonix, scds for prophylaxis d/w RN/RT ROSAMARIA GUNDERSON MD Aug 08, 2016 13:55
[2016-08-08] MEDS: FENTANYL PF 100 MCG/2 ML VIAL. IV PRN ×2 (15:02→21:43)
--- NOTE | 2016-08-08 15:20 | PDOC ---
PROGRESS NOTES Subjective Subjective Pt intubated and sedated She is off the vasopressors Objective Objective Vital Signs Date Time Temp Pulse Resp B/P Pulse Ox O2 Delivery O2 Flow Rate FiO2 08/08/16 15:02 14 100 Ventilator 08/08/16 14:57 87 133/72 08/08/16 12:00 97.6 97.6 08/08/16 10:21 50.0 Intake and Output 08/08/16 07:00 Intake Total 2273 ml Output Total 4540 ml Balance -2267 ml IV Total 957 ml Other 1316 ml Output Urine Total 1340 ml Drainage Total 2200 ml Other 1000 ml Physical Exam Physical Exam No changes in cardiac exam Assessment Assessment Pt progressing slowly but working on getting her off the vent. Agree with present plan. Problems Medical Problems: (1) Abdominal pain Status: Acute (2) Enterocutaneous fistula Status: Acute (3) Sepsis Status: Acute (4) Urinary tract infection Status: Acute (5) UTI (urinary tract infection) Status: Acute Comment Review of Relevant I have reviewed the following items lucila (where applicable) has been applied. Labs Laboratory Tests Test 08/06/16 23:35 08/07/16 06:07 08/07/16 06:10 08/07/16 08:00 Glucose (Fingerstick) 201mg/dL (70-99) 140mg/dL (70-99) White Blood Count 6.5x10^3/uL (4.0-11.0) Red Blood Count 2.88x10^6/uL (3.50-5.40) Hemoglobin 7.3g/dL (12.0-15.5) Hematocrit 22.3% (36.0-47.0) Mean Corpuscular Volume 77fL (79-100) Mean Corpuscular Hemoglobin 25pg (25-35) Mean Corpuscular Hemoglobin Concent 33g/dL (31-37) Red Cell Distribution Width 20.0% (11.5-14.5) Platelet Count 40x10^3/uL (140-400) Neutrophils (%) (Auto) 81% (31-73) Lymphocytes (%) (Auto) 13% (24-48) Monocytes (%) (Auto) 6% (0-9) Eosinophils (%) (Auto) 0% (0-3) Basophils (%) (Auto) 0% (0-3) Neutrophils # (Auto) 5.2x10^3uL (1.8-7.7) Lymphocytes # (Auto) 0.9x10^3/uL (1.0-4.8) Monocytes # (Auto) 0.4x10^3/uL (0.0-1.1) Eosinophils # (Auto) 0.0x10^3/uL (0.0-0.7) Basophils # (Auto) 0.0x10^3/uL (0.0-0.2) Prothrombin Time 17.3SEC (11.7-14.0) Prothromb Time International Ratio 1.5 (0.8-1.1) Fibrinogen 121mg/dL (200-440) Sodium Level 145mmol/L (136-145) Potassium Level 2.8mmol/L (3.5-5.1) Chloride Level 104mmol/L (98-107) Carbon Dioxide Level 31mmol/L (21-32) Anion Gap 10 (6-14) Blood Urea Nitrogen 72mg/dL (7-20) Creatinine 1.2mg/dL (0.6-1.0) Estimated GFR (Cockcroft-Gault) 55.3 Glucose Level 149mg/dL (70-99) Lactic Acid Level 1.5mmol/L (0.4-2.0) Calcium Level 9.1mg/dL (8.5-10.1) Phosphorus Level 5.1mg/dL (2.6-4.7) Magnesium Level 2.5mg/dL (1.8-2.4) Total Bilirubin 5.5mg/dL (0.2-1.0) Direct Bilirubin 2.9mg/dL (0.0-0.2) Aspartate Amino Transf (AST/SGOT) 37U/L (15-37) Alanine Aminotransferase (ALT/SGPT) 44U/L (14-59) Alkaline Phosphatase 155U/L (46-116) Total Protein 6.3g/dL (6.4-8.2) Albumin 3.2g/dL (3.4-5.0) O2 Saturation 99% (92-99) Arterial Blood pH 7.53 (7.35-7.45) Arterial Blood pCO2 at Patient Temp 32mmHg (35-46) Arterial Blood pO2 at Patient Temp 181mmHg (65-108) Arterial Blood HCO3 26mmol/L (21-28) Arterial Blood Base Excess 3mmol/L (-3-3) FiO2 35 Test 08/07/16 12:37 08/07/16 18:08 08/08/16 00:06 08/08/16 05:00 Glucose (Fingerstick) 154mg/dL (70-99) 169mg/dL (70-99) 158mg/dL (70-99) White Blood Count 10.2x10^3/uL (4.0-11.0) Red Blood Count 3.32x10^6/uL (3.50-5.40) Hemoglobin 8.5g/dL (12.0-15.5) Hematocrit 25.8% (36.0-47.0) Mean Corpuscular Volume 78fL (79-100) Mean Corpuscular Hemoglobin 26pg (25-35) Mean Corpuscular Hemoglobin Concent 33g/dL (31-37) Red Cell Distribution Width 20.6% (11.5-14.5) Platelet Count 60x10^3/uL (140-400) Neutrophils (%) (Auto) 71% (31-73) Lymphocytes (%) (Auto) 19% (24-48) Monocytes (%) (Auto) 10% (0-9) Eosinophils (%) (Auto) 0% (0-3) Basophils (%) (Auto) 0% (0-3) Neutrophils # (Auto) 7.3x10^3uL (1.8-7.7) Lymphocytes # (Auto) 1.9x10^3/uL (1.0-4.8) Monocytes # (Auto) 1.0x10^3/uL (0.0-1.1) Eosinophils # (Auto) 0.0x10^3/uL (0.0-0.7) Basophils # (Auto) 0.0x10^3/uL (0.0-0.2) Fibrinogen 102mg/dL (200-440) Sodium Level 146mmol/L (136-145) Potassium Level 2.7mmol/L (3.5-5.1) Chloride Level 106mmol/L (98-107) Carbon Dioxide Level 31mmol/L (21-32) Anion Gap 9 (6-14) Blood Urea Nitrogen 55mg/dL (7-20) Creatinine 0.9mg/dL (0.6-1.0) Estimated GFR (Cockcroft-Gault) 77.0 BUN/Creatinine Ratio 61 (6-20) Glucose Level 112mg/dL (70-99) Lactic Acid Level 1.3mmol/L (0.4-2.0) Calcium Level 9.0mg/dL (8.5-10.1) Phosphorus Level 3.8mg/dL (2.6-4.7) Magnesium Level 2.0mg/dL (1.8-2.4) Total Bilirubin 5.5mg/dL (0.2-1.0) Aspartate Amino Transf (AST/SGOT) 31U/L (15-37) Alanine Aminotransferase (ALT/SGPT) 47U/L (14-59) Alkaline Phosphatase 178U/L (46-116) Total Protein 6.5g/dL (6.4-8.2) Albumin 3.0g/dL (3.4-5.0) Albumin/Globulin Ratio 0.9 (1.0-1.7) Test 08/08/16 05:28 08/08/16 09:50 08/08/16 11:40 08/08/16 13:15 Glucose (Fingerstick) 109mg/dL (70-99) 134mg/dL (70-99) O2 Saturation 99% (92-99) Arterial Blood pH 7.51 (7.35-7.45) Arterial Blood pCO2 at Patient Temp 35mmHg (35-46) Arterial Blood pO2 at Patient Temp 185mmHg (65-108) Arterial Blood HCO3 28mmol/L (21-28) Arterial Blood Base Excess 4mmol/L (-3-3) FiO2 35 Potassium Level 3.2mmol/L (3.5-5.1) Laboratory Tests Test 08/07/16 18:08 08/08/16 00:06 08/08/16 05:00 08/08/16 05:28 Glucose (Fingerstick) 169mg/dL (70-99) 158mg/dL (70-99) 109mg/dL (70-99) White Blood Count 10.2x10^3/uL (4.0-11.0) Red Blood Count 3.32x10^6/uL (3.50-5.40) Hemoglobin 8.5g/dL (12.0-15.5) Hematocrit 25.8% (36.0-47.0) Mean Corpuscular Volume 78fL (79-100) Mean Corpuscular Hemoglobin 26pg (25-35) Mean Corpuscular Hemoglobin Concent 33g/dL (31-37) Red Cell Distribution Width 20.6% (11.5-14.5) Platelet Count 60x10^3/uL (140-400) Neutrophils (%) (Auto) 71% (31-73) Lymphocytes (%) (Auto) 19% (24-48) Monocytes (%) (Auto) 10% (0-9) Eosinophils (%) (Auto) 0% (0-3) Basophils (%) (Auto) 0% (0-3) Neutrophils # (Auto) 7.3x10^3uL (1.8-7.7) Lymphocytes # (Auto) 1.9x10^3/uL (1.0-4.8) Monocytes # (Auto) 1.0x10^3/uL (0.0-1.1) Eosinophils # (Auto) 0.0x10^3/uL (0.0-0.7) Basophils # (Auto) 0.0x10^3/uL (0.0-0.2) Fibrinogen 102mg/dL (200-440) Sodium Level 146mmol/L (136-145) Potassium Level 2.7mmol/L (3.5-5.1) Chloride Level 106mmol/L (98-107) Carbon Dioxide Level 31mmol/L (21-32) Anion Gap 9 (6-14) Blood Urea Nitrogen 55mg/dL (7-20) Creatinine 0.9mg/dL (0.6-1.0) Estimated GFR (Cockcroft-Gault) 77.0 BUN/Creatinine Ratio 61 (6-20) Glucose Level 112mg/dL (70-99) Lactic Acid Level 1.3mmol/L (0.4-2.0) Calcium Level 9.0mg/dL (8.5-10.1) Phosphorus Level 3.8mg/dL (2.6-4.7) Magnesium Level 2.0mg/dL (1.8-2.4) Total Bilirubin 5.5mg/dL (0.2-1.0) Aspartate Amino Transf (AST/SGOT) 31U/L (15-37) Alanine Aminotransferase (ALT/SGPT) 47U/L (14-59) Alkaline Phosphatase 178U/L (46-116) Total Protein 6.5g/dL (6.4-8.2) Albumin 3.0g/dL (3.4-5.0) Albumin/Globulin Ratio 0.9 (1.0-1.7) Test 08/08/16 09:50 08/08/16 11:40 08/08/16 13:15 O2 Saturation 99% (92-99) Arterial Blood pH 7.51 (7.35-7.45) Arterial Blood pCO2 at Patient Temp 35mmHg (35-46) Arterial Blood pO2 at Patient Temp 185mmHg (65-108) Arterial Blood HCO3 28mmol/L (21-28) Arterial Blood Base Excess 4mmol/L (-3-3) FiO2 35 Glucose (Fingerstick) 134mg/dL (70-99) Potassium Level 3.2mmol/L (3.5-5.1) Microbiology 08/01/16 Blood Culture - Final, Complete NO GROWTH AFTER 5 DAYS 07/15/16 Urine Culture - Final, Complete 07/15/16 Urine Culture Result 1 (ROYA) - Final, Complete 07/15/16 Urine Culture Result 2 (ROYA) - Final, Complete 07/15/16 Antimicrobic Susceptibility - Final, Complete 07/29/16 Aerobic Culture - Final, Complete 07/29/16 Aerobic Culture Result 1 (ROYA) - Final, Complete Medications Current Medications Piperacillin Sod/ Tazobactam Sod/ Sodium Chloride (Zosyn/Iv Sodium Chloride 0.9 % 100ml) 100 ml @ 200 mls/hr 1X ONCE IV Last administered on 07/15/16 22:56; Start 07/15/16 at 22:00; Stop 07/15/16 at 22:29; Status DC Fentanyl Citrate 50 mcg 50 mcg PRN Q15MIN PRN IV PAIN GREATER THAN 3/10 Last administered on 07/16/16 00:30; Start 07/15/16 at 21:45; Stop 07/16/16 at 02:00; Status DC Sodium Chloride 1,000 ml @ 1,000 mls/hr 1X ONCE IV Last administered on 21:59; Start 07/15/16 at 22:00; Stop 07/15/16 at 22:59; Status DC Sodium Chloride (Iv Sodium Chloride 0.9% 500ml Bag) 500 ml @ 500 mls/hr 1X ONCE IV Last administered on 07/15/16 22:00; Start 07/15/16 at 22:00; Stop at 22:59; Status DC Ondansetron HCl (Zofran) 4 mg PRN Q8HRS PRN IV NAUSEA/VOMITING; Start 07/15/16 at 23:30; Stop 07/16/16 at 08:52; Status DC Fentanyl Citrate 50 mcg 50 mcg PRN Q2HR PRN IV SEVERE PAIN Last administered on 07/16/16 08:10; Start 07/15/16 at 23:30; Stop 07/16/16 at 08:52; Status DC Sodium Chloride (Iv Sodium Chloride 0.9% 1000ml Bag) 1,000 ml @ 150 mls/hr Q6H40M IV Last administered on 07/15/16 02:00; Start 07/15/16 at 23:45; Stop 07/16/16 at 08:52; Status DC Acetaminophen (Tylenol) 650 mg PRN Q4HRS PRN PO FEVER; Start 07/15/16 at 23:30; Stop 07/16/16 at 23:29; Status DC Info (Do NOT chart on this placeholder) 1 each PRN DAILY PRN MC NEEDS VERIFICATION; Start 07/16/16 at 03:00; Status Cancel Acetaminophen 650 mg 650 mg PRN Q4HRS PRN PO MILD PAIN / TEMP Last administered on 07/28/16 07:42; Start 07/16/16 at 08:45; Stop 07/29/16 at 08:33 ; Status DC Piperacillin Sod/ Tazobactam Sod 3.375 gm/Sodium Chloride 50 ml @ 100 mls/hr Q6HRS IV Last administered on 07/18/16 05:50; Start 07/16/16 at 10:00; Stop 07/18 at 13:28; Status DC Linezolid (Zyvox Premix) 300 ml @ 300 mls/hr Q12HR IV Last administered on 07/18 08:34; Start 07/16/16 at 10:00; Stop 07/18/16 at 13:28; Status DC Hydromorphone HCl (Dilaudid) 2 mg PRN Q4HRS PRN IV MODERATE PAIN Last administered on 08/08/16 12:05; Start 07/16/16 at 08:45 Hydromorphone HCl (Dilaudid) 4 mg PRN Q4HRS PRN IV SEVERE PAIN Last administered on 07/30/16 09:23; Start 07/16/16 at 08:45; Stop 07/31/16 at 15:01 ; Status DC Pantoprazole Sodium (Protonix) 40 mg DAILYAC PO Last administered on 07/27/16 11:11; Start 07/16/16 at 09:30; Stop 07/29/16 at 08:44; Status DC Hyoscyamine (Anaspaz) 0.125 mg Q6HRS PO Last administered on 07/20/16 05:20; Start 07/16/16 at 12:00; Stop 07/20/16 at 08:58; Status DC Phenazopyridine HCl (Pyridium) 200 mg TID PO Last administered on 07/20/16 08: 25; Start 07/16/16 at 09:30; Stop 07/20/16 at 08:58; Status DC Lorazepam (Ativan) 0.5 mg PRN BID PRN PO ANXIETY / AGITATION Last administered on 07/29/16 02:16; Start 07/16/16 at 08:45; Stop 07/31/16 at 15:01; Status DC Simethicone (Gas-X) 80 mg PRN Q4HRS PRN PO GAS / BLOATING Last administered on 07/24/16 22:30; Start 07/16/16 at 08:45; Stop 07/31/16 at 15:01; Status DC Zolpidem Tartrate 5 mg 5 mg PRN QHS PRN PO INSOMNIA Last administered on 23:14; Start 07/16/16 at 08:45; Stop 07/31/16 at 15:01; Status DC Potassium Chloride/Dextrose/ Sod Cl 1,000 ml @ 80 mls/hr [id number] IV Last administered on 07/16/16 10:54; Start 07/16/16 at 09:30; Stop 07/16/16 at 21:59; Status DC Fluconazole/ Sodium Chloride (Diflucan 200mg/ 100ml Premix) 100 ml @ 100 mls/ hr Q24H IV Last administered on 07/18/16 11:43; Start 07/16/16 at 11:00; Stop at 13:28; Status DC Info 1 each 1 each PRN DAILY PRN MC SEE COMMENTS Last administered on 12:41; Start 07/16/16 at 10:00; Stop 08/01/16 at 11:24; Status DC Sodium Chloride 220 meq/Sodium Acetate 90 meq/ Potassium Chloride 50 meq/ Potassium Acetate 15 meq/Potassium Phosphate 10 mmol/ Magnesium Sulfate 50 meq/ Calcium Gluconate 6 meq/ Multivitamins/ Minerals 10 ml/ Chromium/Copper/ Manganese/Seleni/ Zn 1 ml/Total Parenteral Nutrition/Amino Acids/Dextro... 1, 920 ml @ 80 mls/hr TPN CONT IV ; Start 07/16/16 at 22:00; Stop 07/16/16 at 22:00 ; Status DC Sodium Chloride/ Sodium Acetate/ Potassium Chloride/ Potassium Acetate/ Potassium Phosphate/ Magnesium Sulfate/ Calcium Gluconate/ Multivitamins/ Minerals/Chromium/ Copper/Manganese/ Seleni/Zn/Total Parenteral Nutrition/Amino Acids/Dextrose/ Fat Emulsion Intravenous (Sodium Chlori... 1,820 ml @ 75.833 mls/ hr TPN CONT IV Last administered on 07/16/16 21:03; Start 07/16/16 at 22: 00; Stop 07/17/16 at 21:59; Status DC Ondansetron HCl (Zofran) 4 mg PRN Q6HRS PRN IV NAUSEA/VOMITING Last administered on 07/21/16 08:48; Start 07/16/16 at 17:15; Stop 07/31/16 at 15:01; Status DC Diphenhydramine HCl (Benadryl) 25 mg PRN Q6HRS PRN PO ITCHING Last administered on 07/25/16 23:38; Start 07/16/16 at 17:45; Stop 07/31/16 at 15:01 ; Status DC Lidocaine (Xylocaine) 1 sang BID TP Last administered on 08/08/16 09:03; Start 07/17/16 at 09:00 Zinc Oxide 1 sang 1 sang BID TP Last administered on 08/08/16 09:03; Start at 09:30 Sodium Chloride/ Sodium Acetate/ Potassium Chloride/ Potassium Acetate/ Potassium Phosphate/ Magnesium Sulfate/ Calcium Gluconate/ Multivitamins/ Minerals/Chromium/ Copper/Manganese/ Seleni/Zn/Total Parenteral Nutrition/Amino Acids/Dextrose/ Fat Emulsion Intravenous (Sodium Chlori... 1,920 ml @ 80 mls/ hr TPN CONT IV Last administered on 07/17/16 22:13; Start 07/17/16 at 22:00; Stop 07/18/16 at 21:59; Status DC Furosemide 40 mg 40 mg 1X ONCE IVP Last administered on 07/18/16 11:43; Start 07/18/16 at 11:00; Stop 07/18/16 at 11:07; Status DC Sodium Chloride 220 meq/Sodium Acetate 90 meq/ Potassium Chloride 50 meq/ Potassium Acetate 15 meq/Potassium Phosphate 10 mmol/ Magnesium Sulfate 50 meq/ Calcium Gluconate 3 meq/ Multivitamins/ Minerals 10 ml/ Chromium/Copper/ Manganese/Seleni/ Zn 1 ml/Total Parenteral Nutrition/Amino Acids/Dextro... 1, 920 ml @ 80 mls/hr TPN CONT IV Last administered on 07/19/16 00:03; Start 07/18/16 at 22:00; Stop 07/19/16 at 21:59; Status DC Meropenem 1 gm/ Sodium Chloride 100 ml @ 200 mls/hr Q8HRS IV Last administered on 07/20/16 05:21; Start 07/18/16 at 14:00; Stop 07/20/16 at 11:25; Status DC Micafungin Sodium 100 mg/Dextrose 100 ml @ 100 mls/hr Q24H IV Last administered on 07/19/16 15:05; Start 07/18/16 at 14:00; Stop 07/20/16 at 11:25; Status DC Daptomycin/Sodium Chloride (Cubicin/Iv Sodium Chloride 0.9% 50ml) 50 ml @ 100 mls/hr Q24H IV Last administered on 07/19/16 16:56; Start 07/18/16 at 15:00; Stop 07/20/16 at 11:25; Status DC Alteplase, Recombinant (Cathflo) 2 mg 1X ONCE INT CAT Last administered on 07/19 06:24; Start 07/19/16 at 07:00; Stop 07/19/16 at 07:01; Status DC Gentamicin Sulfate 1 each 1 each PRN DAILY PRN MC SEE COMMENTS Last administered on 07/25/16 15:31; Start 07/19/16 at 12:15; Stop 07/25/16 at 16:14 ; Status DC Gentamicin Sulfate/Sodium Chloride (Iv Sodium Chloride 0.9% 100ml) 106.75 ml @ 106.75 mls/hr Q24H IV Last administered on 07/25/16 15:31; Start 07/19/16 at 13 :00; Stop 07/25/16 at 16:12; Status DC Gentamicin Sulfate 1 each 1 each 1X ONCE MC Last administered on 07/19/16 23: 00; Start 07/19/16 at 23:00; Stop 07/19/16 at 23:01; Status DC Sodium Chloride/ Sodium Acetate/ Potassium Chloride/ Potassium Acetate/ Potassium Phosphate/ Magnesium Sulfate/ Calcium Gluconate/ Multivitamins/ Minerals/Chromium/ Copper/Manganese/ Seleni/Zn/Total Parenteral Nutrition/Amino Acids/Dextrose/ Fat Emulsion Intravenous (Sodium Chlori... 1,920 ml @ 80 mls/ hr TPN CONT IV Last administered on 07/19/16 20:51; Start 07/19/16 at 22:00; Stop 07/20/16 at 21:59; Status DC Hyoscyamine (Anaspaz) 0.125 mg PRN Q6HRS PRN PO BLADDER SPASM; Start 07/20/16 at 09:00; Stop 07/31/16 at 15:01; Status DC Phenazopyridine HCl 200 mg 200 mg PRN TID PRN PO BLADDER SPASM Last administered on 07/21/16 20:14; Start 07/20/16 at 09:00; Stop 07/31/16 at 15:01; Status DC Linezolid 300 ml @ 300 mls/hr Q12HR IV Last administered on 07/25/16 09:02; Start 07/20/16 at 12:00; Stop 07/25/16 at 16:12; Status DC Sodium Chloride 220 meq/Sodium Acetate 90 meq/ Potassium Chloride 50 meq/ Potassium Acetate 15 meq/Potassium Phosphate 10 mmol/ Magnesium Sulfate 50 meq/ Calcium Gluconate 3 meq/ Multivitamins/ Minerals 10 ml/ Chromium/Copper/ Manganese/Seleni/ Zn 1 ml/Total Parenteral Nutrition/Amino Acids/Dextro... 1, 920 ml @ 80 mls/hr TPN CONT IV Last administered on 07/20/16 21:30; Start 07/20/16 at 22:00; Stop 07/21/16 at 21:59; Status DC Sodium Chloride/ Sodium Acetate/ Potassium Chloride/ Potassium Acetate/ Potassium Phosphate/ Magnesium Sulfate/ Multivitamins/ Minerals/Chromium/ Copper /Manganese/ Seleni/Zn/Total Parenteral Nutrition/Amino Acids/Dextrose/ Fat Emulsion Intravenous (Sodium Chloride/ Potass... 1,920 ml @ 80 mls/hr TPN CONT IV Last administered on 07/21/16 22:05; Start 07/21/16 at 22:00; Stop at 21:59; Status DC Alteplase, Recombinant 2 mg 2 mg PRN DAILY PRN INT CAT INFLAMMATION Last administered on 07/27/16 11:31; Start 07/21/16 at 15:00 Sodium Chloride 220 meq/Sodium Acetate 90 meq/ Potassium Chloride 50 meq/ Potassium Acetate 15 meq/Potassium Phosphate 10 mmol/ Magnesium Sulfate 50 meq/ Multivitamins/ Minerals 10 ml/ Chromium/Copper/ Manganese/Seleni/ Zn 1 ml/Total Parenteral Nutrition/Amino Acids/Dextrose/ Fat Emuls... 1,920 ml @ 80 mls/hr TPN CONT IV Last administered on 07/22/16 20:53; Start 07/22/16 at 22:00; Stop 07/23/16 at 21:59; Status DC Sodium Chloride/ Sodium Acetate/ Potassium Chloride/ Potassium Acetate/ Potassium Phosphate/ Magnesium Sulfate/ Multivitamins/ Minerals/Chromium/ Copper /Manganese/ Seleni/Zn/Total Parenteral Nutrition/Amino Acids/Dextrose/ Fat Emulsion Intravenous (Sodium Chloride/ Potass... 1,920 ml @ 80 mls/hr TPN CONT IV Last administered on 07/23/16 21:16; Start 07/23/16 at 22:00; Stop 07/24 at 21:59; Status DC Gentamicin Sulfate 1 each 1 each 1X ONCE MC ; Start 07/23/16 at 22:00; Stop 07/23 at 22:01; Status Cancel Sodium Chloride/ Sodium Acetate/ Potassium Chloride/ Potassium Acetate/ Potassium Phosphate/ Magnesium Sulfate/ Multivitamins/ Minerals/Chromium/ Copper /Manganese/ Seleni/Zn/Total Parenteral Nutrition/Amino Acids/Dextrose/ Fat Emulsion Intravenous (Sodium Chloride/ Potass... 1,920 ml @ 80 mls/hr TPN CONT IV Last administered on 07/24/16 21:15; Start 07/24/16 at 22:00; Stop 04/30 at 21:59; Status DC Gentamicin Sulfate 1 each 1X ONCE MC ; Start 07/25/16 at 12:30; Stop 07/25/16 at 12:31; Status Cancel Amlodipine Besylate 5 mg 5 mg DAILY PO Last administered on 07/27/16 11:12; Start 07/25/16 at 12:00; Stop 07/29/16 at 08:44; Status DC Sodium Chloride 220 meq/Sodium Acetate 90 meq/ Potassium Chloride 30 meq/ Potassium Acetate 15 meq/Potassium Phosphate 10 mmol/ Magnesium Sulfate 50 meq/ Multivitamins/ Minerals 10 ml/ Chromium/Copper/ Manganese/Seleni/ Zn 1 ml/Total Parenteral Nutrition/Amino Acids/Dextrose/ Fat Emuls... 1,920 ml @ 80 mls/hr TPN CONT IV Last administered on 07/25/16 22:25; Start 07/25/16 at 22:00; Stop 07/26/16 at 21:59; Status DC Sodium Chloride/ Sodium Acetate/ Potassium Chloride/ Potassium Acetate/ Potassium Phosphate/ Magnesium Sulfate/ Multivitamins/ Minerals/Chromium/ Copper /Manganese/ Seleni/Zn/Total Parenteral Nutrition/Amino Acids/Dextrose/ Fat Emulsion Intravenous (Sodium Chloride/ Potass... 1,920 ml @ 80 mls/hr TPN CONT IV Last administered on 07/26/16 23:16; Start 07/26/16 at 22:00; Stop at 21:59; Status DC Furosemide 20 mg 20 mg 1X ONCE IVP Last administered on 07/27/16 11:31; Start 07/27/16 at 09:00; Stop 07/27/16 at 09:01; Status DC Daptomycin 340 mg/ Sodium Chloride 50 ml @ 100 mls/hr Q24H IV Last administered on 07/29/16 15:05; Start 07/27/16 at 13:00; Stop 07/30/16 at 07:25 ; Status DC Piperacillin Sod/ Tazobactam Sod 3.375 gm/Sodium Chloride 50 ml @ 100 mls/hr Q6HRS IV Last administered on 07/30/16 05:30; Start 07/27/16 at 12:30; Stop at 07:25; Status DC Fluconazole/ Sodium Chloride 100 ml @ 100 mls/hr Q24H IV Last administered on 07/28/16 13:32; Start 07/27/16 at 13:00; Stop 07/29/16 at 00:53; Status DC Sodium Chloride 1,000 ml @ 1,000 mls/hr 1X ONCE IV Last administered on 12:34; Start 07/27/16 at 12:30; Stop 07/27/16 at 13:29; Status DC Sodium Chloride 220 meq/Sodium Acetate 90 meq/ Potassium Chloride 30 meq/ Potassium Acetate 15 meq/Potassium Phosphate 10 mmol/ Magnesium Sulfate 45 meq/ Multivitamins/ Minerals 10 ml/ Chromium/Copper/ Manganese/Seleni/ Zn 1 ml/Total Parenteral Nutrition/Amino Acids/Dextrose/ Fat Emuls... 1,920 ml @ 80 mls/hr TPN CONT IV Last administered on 07/27/16 22:38; Start 07/27/16 at 22:00; Stop 07/28/16 at 21:59; Status DC Sodium Chloride (Iv Sodium Chloride 0.9% 1000ml Bag) 1,000 ml @ 45 mls/hr [id number] IV Last administered on 07/28/16 03:24; Start 07/27/16 at 17:00; Stop 07/28/16 at 10:27; Status DC Acetaminophen 650 mg 650 mg PRN Q6HRS PRN [place] fever Last administered on 03:57; Start 07/27/16 at 16:30; Stop 07/29/16 at 08:33; Status DC Sodium Chloride 1,000 ml @ 427.5 mls/ hr Q2H21M IV Last administered on 19:30; Start 07/27/16 at 19:30; Stop 07/27/16 at 23:30; Status DC Sodium Chloride 220 meq/Sodium Acetate 90 meq/ Potassium Chloride 30 meq/ Potassium Acetate 15 meq/Potassium Phosphate 10 mmol/ Magnesium Sulfate 45 meq/ Multivitamins/ Minerals 10 ml/ Chromium/Copper/ Manganese/Seleni/ Zn 1 ml/Total Parenteral Nutrition/Amino Acids/Dextrose/ Fat Emuls... 1,920 ml @ 80 mls/hr TPN CONT IV Last administered on 07/28/16 21:43; Start 07/28/16 at 22:00; Stop 07/29/16 at 21:59; Status DC Micafungin Sodium/ Dextrose (Mycamine) 100 ml @ 100 mls/hr Q24H IV Last administered on 08/08/16 01:10; Start 07/29/16 at 01:00 Lorazepam (Ativan) 0.05 mg PRN Q4HRS PRN IV ANXIETY / AGITATION; Start at 02:30; Stop 07/29/16 at 02:48; Status DC Lorazepam (Ativan) 0.5 mg PRN Q4HRS PRN IV ANXIETY / AGITATION Last administered on 08/07/16 21:43; Start 07/29/16 at 03:00 Acetaminophen (Tylenol) 650 mg PRN Q4HRS PRN VA MILD PAIN / TEMP; Start at 08:30 Ketorolac Tromethamine (Toradol) 30 mg PRN Q6HRS PRN IV PAIN/FEVER Last administered on 07/30/16 00:50; Start 07/29/16 at 08:30; Stop 07/30/16 at 13:01 ; Status DC Pantoprazole Sodium 40 mg 40 mg DAILYAC IVP Last administered on 08/08/16 07: 31; Start 07/29/16 at 09:00 Sodium Chloride 1,000 ml @ 45 mls/hr [id number] IV Last administered on 09:17; Start 07/29/16 at 08:45; Stop 07/31/16 at 15:01; Status DC Sodium Chloride/ Sodium Acetate/ Potassium Chloride/ Potassium Acetate/ Potassium Phosphate/ Magnesium Sulfate/ Multivitamins/ Minerals/Chromium/ Copper /Manganese/ Seleni/Zn/Total Parenteral Nutrition/Amino Acids/Dextrose/ Fat Emulsion Intravenous (Sodium Chloride/ Potass... 1,920 ml @ 80 mls/hr TPN CONT IV Last administered on 07/29/16 22:06; Start 07/29/16 at 22:00; Stop at 21:59; Status DC Lidocaine/Sodium Bicarbonate 20 ml 20 ml STK-MED ONCE IJ ; Start 07/29/16 at 13: 13; Stop 07/29/16 at 13:14; Status DC Heparin Sodium/ Sodium Chloride 500 ml @ As Directed STK-MED ONCE .ROUTE ; Start 07/29/16 at 13:13; Stop 07/29/16 at 13:14; Status DC Lidocaine/ Epinephrine (Xylocaine 1%-Epi 1:100,000) 20 ml STK-MED ONCE .ROUTE ; Start 07/29/16 at 13:22; Stop 07/29/16 at 13:23; Status DC Midazolam HCl (Versed) 5 mg STK-MED ONCE .ROUTE ; Start 07/29/16 at 13:32; Stop 07/29/16 at 13:33; Status DC Fentanyl Citrate (Fentanyl 5ml Vial) 250 mcg STK-MED ONCE .ROUTE ; Start at 13:32; Stop 07/29/16 at 13:33; Status DC Heparin Sodium/ Sodium Chloride 1,000 unit 1X ONCE IART Last administered on 13:45; Start 07/29/16 at 13:45; Stop 07/29/16 at 13:48; Status DC Midazolam HCl (Versed) 5 mg 1X ONCE IV Last administered on 07/29/16 13:45; Start 07/29/16 at 13:45; Stop 07/29/16 at 13:48; Status DC Fentanyl Citrate (Fentanyl 5ml Vial) 250 mcg 1X ONCE IV Last administered on 13:45; Start 07/29/16 at 13:45; Stop 07/29/16 at 13:48; Status DC Lidocaine/ Epinephrine 20 ml 20 ml 1X ONCE IJ Last administered on 07/29/16 13:45; Start 07/29/16 at 13:45; Stop 07/29/16 at 13:48; Status DC Sodium Chloride 220 meq/Sodium Acetate 90 meq/ Potassium Chloride 15 meq/ Potassium Acetate 30 meq/Potassium Phosphate 10 mmol/ Magnesium Sulfate 45 meq/ Multivitamins/ Minerals 10 ml/ Chromium/Copper/ Manganese/Seleni/ Zn 1 ml/Total Parenteral Nutrition/Amino Acids/Dextrose/ Fat Emuls... 1,920 ml @ 80 mls/hr TPN CONT IV ; Start 07/30/16 at 22:00; Stop 07/31/16 at 21:59; Status DC Norepinephrine Bitartrate 8 mg/ Sodium Chloride 258 ml @ 1.93 mls/hr 1X ONCE IV Last administered on 07/30/16 11:17; Start 07/30/16 at 11:15; Stop at 15:43; Status DC Norepinephrine Bitartrate/Sodium Chloride (Levophed Vial/ Iv Sodium Chloride 0.9 % 250ml) 258 ml @ 0 mls/hr CONT PRN IV SEE I/O RECORD Last administered on 08/02 19:54; Start 07/30/16 at 11:15; Stop 08/04/16 at 09:29; Status DC Furosemide 60 mg 60 mg 1X ONCE IVP Last administered on 07/30/16 11:14; Start 07/30/16 at 11:15; Stop 07/30/16 at 11:16; Status DC Sodium Chloride 500 ml @ 500 mls/hr Q1H IV Last administered on 07/30/16 17: 04; Start 07/30/16 at 14:30; Stop 07/30/16 at 15:29; Status DC Albumin Human 100 ml @ 100 mls/hr Q8HRS IV Last administered on 07/31/16 05: 37; Start 07/30/16 at 14:30; Stop 07/31/16 at 06:59; Status DC Furosemide/Sodium Chloride (Lasix Drip/Iv Sodium Chloride 0.9% 100ml) 100 ml @ 0 mls/hr CONT PRN IV SEE I/O RECORD Last administered on 07/31/16 03:17; Start 07/30/16 at 14:30; Stop 08/01/16 at 13:19; Status DC Ondansetron HCl (Zofran) 8 mg PRN Q8HRS PRN IV NAUSEA/VOMITING Last administered on 07/30/16 14:38; Start 07/30/16 at 14:30 Sodium Bicarbonate 50 meq 50 meq 1X ONCE IV Last administered on 2/16/17at 14: 43; Start 07/30/16 at 14:30; Stop 07/30/16 at 14:31; Status DC Heparin Sodium/ Sodium Chloride 500 ml @ As Directed STK-MED ONCE .ROUTE ; Start 07/30/16 at 14:49; Stop 07/30/16 at 14:50; Status DC Lidocaine HCl 20 ml STK-MED ONCE .ROUTE ; Start 07/30/16 at 14:49; Stop at 14:50; Status DC Midazolam HCl (Versed) 2 mg STK-MED ONCE .ROUTE ; Start 07/30/16 at 15:19; Stop 07/30/16 at 15:20; Status DC Heparin Sodium/ Sodium Chloride 1,000 unit 1X ONCE IART Last administered on 15:44; Start 07/30/16 at 15:45; Stop 07/30/16 at 15:46; Status DC Midazolam HCl (Versed) 1.5 mg 1X ONCE IV Last administered on 07/30/16 15:44 ; Start 07/30/16 at 15:45; Stop 07/30/16 at 15:46; Status DC Lidocaine HCl 20 ml 1X ONCE IJ Last administered on 07/30/16 15:44; Start at 15:45; Stop 07/30/16 at 15:46; Status DC Heparin Sodium (Porcine) 64014 unit 10,000 unit STK-MED ONCE .ROUTE ; Start at 15:54; Stop 07/30/16 at 15:55; Status DC Fentanyl Citrate 30 ml @ 0 mls/hr CONT PRN PRN IV PROTOCOL Last administered on 08/08/16 10:21; Start 07/30/16 at 16:45; Stop 08/08/16 at 11:03; Status DC Sodium Bicarbonate/ Dextrose 1,150 ml @ 125 mls/hr 1X ONCE IV Last administered on 07/30/16 18:34; Start 07/30/16 at 17:30; Stop 07/31/16 at 02:41 ; Status DC Succinylcholine Chloride 200 mg 200 mg STK-MED ONCE .ROUTE ; Start 07/30/16 at 19:47; Stop 07/30/16 at 19:48; Status DC Propofol 100 ml @ As Directed STK-MED ONCE IV ; Start 07/30/16 at 19:48; Stop 07/30/16 at 19:49; Status DC Midazolam HCl (Versed 100mg/ 100ml Premix) 100 ml @ 0 mls/hr CONT PRN IV SEE I/ O RECORD Last administered on 08/03/16 12:18; Start 07/30/16 at 21:15 Sodium Bicarbonate 50 meq 50 meq 1X ONCE IV Last administered on 07/30/16 22: 15; Start 07/30/16 at 22:30; Stop 07/30/16 at 22:31; Status DC Dopamine HCl/ Dextrose 250 ml @ 11.513 mls/ hr CONT PRN IV SEE I/O RECORD Last administered on 07/31/16 20:16; Start 07/30/16 at 22:15; Stop 08/04/16 at 09:29; Status DC Sodium Bicarbonate/ Dextrose 1,150 ml @ 125 mls/hr Q9H12M IV Last administered on 08/01/16 09:30; Start 07/31/16 at 03:00; Stop 08/01/16 at 13:19 ; Status DC Propofol (Diprivan) 1,000 mg STK-MED ONCE IV ; Start 07/30/16 at 20:00; Stop at 08:16; Status DC Succinylcholine Chloride 200 mg 200 mg STK-MED ONCE .ROUTE ; Start 07/30/16 at 20:00; Stop 07/31/16 at 08:16; Status DC Tigecycline 50 mg/ Sodium Chloride 50 ml @ 100 mls/hr Q12HR IV Last administered on 08/04/16 09:01; Start 07/31/16 at 21:00; Stop 08/04/16 at 10:00 ; Status DC Tigecycline/ Sodium Chloride (Tygacil/Iv Sodium Chloride 0.9% 100ml) 100 ml @ 200 mls/hr 1X ONCE IV Last administered on 07/31/16 09:22; Start 07/31/16 at 09:00; Stop 07/31/16 at 09:29; Status DC Darbepoetin Asrbjit 60 mcg 60 mcg WEEKLYHS SQ Last administered on 08/07/16 21:41 ; Start 07/31/16 at 21:00 Albumin Human 100 ml @ 100 mls/hr 1X ONCE IV Last administered on 2/17/17at 11:40; Start 07/31/16 at 11:15; Stop 07/31/16 at 12:14; Status DC Albumin Human 100 ml @ 100 mls/hr 1X ONCE IV Last administered on 07/31/16 12:03; Start 07/31/16 at 11:15; Stop 07/31/16 at 12:14; Status DC Sodium Chloride (Iv Sodium Chloride 0.9% 1000ml Bag) 1,000 ml @ 1,000 mls/hr Q1H PRN IV hypotension; Start 07/31/16 at 11:33; Stop 07/31/16 at 17:32; Status DC Info (PHARMACY MONITORING -- do not chart) 1 each PRN DAILY PRN MC SEE COMMENTS ; Start 07/31/16 at 11:45 Info (PHARMACY MONITORING -- do not chart) 1 each PRN DAILY PRN MC SEE COMMENTS ; Start 07/31/16 at 11:45; Status UNV Hydrocortisone Sodium Succinate (Solu-Cortef) 100 mg Q8HRS IV Last administered on 08/04/16 06:16; Start 08/01/16 at 07:00; Stop 08/04/16 at 09:29 ; Status DC Albuterol/ Ipratropium (Duoneb) 3 ml RTQID NEB Last administered on 08/08/16 11:47; Start 08/01/16 at 08:00 Albuterol/ Ipratropium 3 ml 3 ml STK-MED ONCE .ROUTE Last administered on 07:34; Start 08/01/16 at 06:59; Stop 08/01/16 at 07:00; Status DC Sodium Chloride 1,000 ml @ 1,000 mls/hr Q1H PRN IV hypotension; Start 08/01/16 at 06:57; Stop 08/01/16 at 12:56; Status DC Albumin Human (Albuminar) 200 ml @ 200 mls/hr 1X PRN PRN IV Hypotension; Start 08/01/16 at 07:00; Stop 08/01/16 at 12:59; Status DC Info (PHARMACY MONITORING -- do not chart) 1 each PRN DAILY PRN MC SEE COMMENTS ; Start 08/01/16 at 07:00; Status UNV Info 1 each 1 each PRN DAILY PRN MC SEE COMMENTS Last administered on 13:05; Start 08/01/16 at 13:30 Sodium Chloride 220 meq/Sodium Acetate 90 meq/ Potassium Chloride 15 meq/ Potassium Acetate 30 meq/Potassium Phosphate 10 mmol/ Magnesium Sulfate 45 meq/ Multivitamins/ Minerals 10 ml/ Chromium/Copper/ Manganese/Seleni/ Zn 1 ml/Total Parenteral Nutrition/Amino Acids/Dextrose/ Fat Emuls... 1,920 ml @ 80 mls/hr TPN CONT IV Last administered on 08/01/16 21:56; Start 08/01/16 at 22:00; Stop 08/02/16 at 21:59; Status DC Potassium Chloride (KCl Premix 20meq) 50 ml @ 50 mls/hr Q1H IV Last administered on 08/01/16 19:05; Start 08/01/16 at 17:00; Stop 08/01/16 at 18:59 ; Status DC Insulin Aspart 0-6 UNITS TIDWMEALS SQ Last administered on 08/02/16 11:33; Start 08/02/16 at 12:00; Stop 08/02/16 at 14:34; Status DC Sodium Chloride 220 meq/Sodium Acetate 90 meq/ Potassium Chloride 15 meq/ Potassium Acetate 30 meq/Magnesium Sulfate 45 meq/ Multivitamins/ Minerals 10 ml / Chromium/Copper/ Manganese/Seleni/ Zn 1 ml/Total Parenteral Nutrition/Amino Acids/Dextrose/ Fat Emulsion Intravenous 1,920 ml @ 80 mls/hr TPN CONT IV Last administered on 08/02/16 21:34; Start 08/02/16 at 22:00; Stop 08/03/16 at 21:59; Status DC Levofloxacin/ Dextrose 150 ml @ 100 mls/hr 1X ONCE IV Last administered on 14:35; Start 08/02/16 at 14:00; Stop 08/02/16 at 15:29; Status DC Daptomycin/Sodium Chloride (Cubicin/Iv Sodium Chloride 0.9% 50ml) 50 ml @ 100 mls/hr ONCE ONCE IV Last administered on 08/02/16 14:34; Start 08/02/16 at 15 :00; Stop 08/02/16 at 15:29; Status DC Insulin Aspart 0-6 UNITS Q6HRS SQ Last administered on 08/07/16 18:14; Start 08/02/16 at 18:00 Sodium Chloride (Iv Sodium Chloride 0.9% 1000ml Bag) 1,000 ml @ 1,000 mls/hr Q1H PRN IV hypotension; Start 08/03/16 at 07:26; Stop 08/03/16 at 13:25; Status DC Diphenhydramine HCl (Benadryl) 25 mg 1X PRN PRN IV ITCHING; Start 08/03/16 at 07:30; Stop 08/04/16 at 07:29; Status DC Diphenhydramine HCl (Benadryl) 25 mg 1X PRN PRN IV ITCHING; Start 08/03/16 at 07:30; Stop 08/04/16 at 07:29; Status DC Sodium Chloride (Normal Saline Flush) 10 ml 1X PRN PRN IV AP catheter pack; Start 08/03/16 at 07:30; Stop 08/04/16 at 07:29; Status DC Sodium Chloride 10 ml 10 ml 1X PRN PRN IV REFUELING RAMP SUPERVISOR catheter pack; Start 08/03/16 at 07:30; Stop 08/04/16 at 07:29; Status DC Sodium Chloride (Iv Sodium Chloride 0.9% 1000ml Bag) 1,000 ml @ 400 mls/hr Q2H30M PRN IV PATENCY; Start 08/03/16 at 07:26; Stop 08/03/16 at 19:25; Status DC Info 1 each 1 each PRN DAILY PRN MC SEE COMMENTS; Start 08/03/16 at 07:30; Status UNV Albumin Human 200 ml @ 200 mls/hr Q2HR IV Last administered on 08/03/16 10:00 ; Start 08/03/16 at 08:44; Stop 08/03/16 at 10:59; Status DC Sodium Chloride 160 meq/Sodium Acetate 60 meq/ Potassium Chloride 15 meq/ Potassium Acetate 30 meq/Magnesium Sulfate 25 meq/ Multivitamins/ Minerals 10 ml / Chromium/Copper/ Manganese/Seleni/ Zn 1 ml/Total Parenteral Nutrition/Amino Acids/Dextrose/ Fat Emulsion Intravenous 1,500 ml @ 62.5 mls/hr TPN CONT IV Last administered on 08/03/16 22:52; Start 08/03/16 at 22:00; Stop 08/04/16 at 21:59; Status DC Levofloxacin/ Dextrose 100 ml @ 100 mls/hr 1X ONCE IV Last administered on 10:50; Start 08/04/16 at 07:30; Stop 08/04/16 at 08:30; Status DC Daptomycin 450 mg/ Sodium Chloride 50 ml @ 100 mls/hr ONCE ONCE IV Last administered on 08/04/16 09:55; Start 08/04/16 at 08:00; Stop 08/04/16 at 08:30 ; Status DC Tigecycline/ Sodium Chloride (Tygacil/Iv Sodium Chloride 0.9% 50ml) 50 ml @ 100 mls/hr Q12HR IV Last administered on 08/08/16 10:21; Start 08/04/16 at 21: 00 Hydrocortisone Sodium Succinate 50 mg 50 mg Q8HRS IV Last administered on 05:39; Start 08/04/16 at 14:00; Stop 08/05/16 at 11:12; Status DC Furosemide 100 mg/ Sodium Chloride 100 ml @ 0 mls/hr CONT PRN IV SEE I/O RECORD Last administered on 08/08/16 07:32; Start 08/04/16 at 11:30 Sodium Chloride 160 meq/Sodium Acetate 60 meq/ Potassium Chloride 15 meq/ Potassium Acetate 30 meq/Magnesium Sulfate 25 meq/ Multivitamins/ Minerals 10 ml / Chromium/Copper/ Manganese/Seleni/ Zn 1 ml/Total Parenteral Nutrition/Amino Acids/Dextrose/ Fat Emulsion Intravenous 1,500 ml @ 62.5 mls/hr TPN CONT IV Last administered on 08/04/16 21:45; Start 08/04/16 at 22:00; Stop 08/06/16 at 08:48; Status DC Sodium Chloride 1,000 ml @ 1,000 mls/hr Q1H PRN IV hypotension; Start 08/04/16 at 12:00; Stop 08/04/16 at 17:59; Status DC Sodium Chloride (Iv Sodium Chloride 0.9% 1000ml Bag) 1,000 ml @ 400 mls/hr Q2H30M PRN IV PATENCY; Start 08/04/16 at 12:00; Stop 08/04/16 at 23:59; Status DC Info 1 each 1 each PRN DAILY PRN MC SEE COMMENTS; Start 08/04/16 at 16:30; Status UNV Levofloxacin/ Dextrose 100 ml @ 100 mls/hr 1X ONCE IV Last administered on 14:27; Start 08/05/16 at 14:00; Stop 08/05/16 at 14:59; Status DC Daptomycin/Sodium Chloride (Cubicin/Iv Sodium Chloride 0.9% 50ml) 50 ml @ 100 mls/hr 1X ONCE IV Last administered on 08/05/16 14:27; Start 08/05/16 at 14: 00; Stop 08/05/16 at 14:29; Status DC Heparin Sodium (Porcine) 10,000 unit STK-MED ONCE .ROUTE ; Start 08/05/16 at 09: 35; Stop 08/05/16 at 09:36; Status DC Lidocaine/Sodium Bicarbonate 20 ml 20 ml STK-MED ONCE IJ ; Start 08/05/16 at 09: 36; Stop 08/05/16 at 09:37; Status DC Heparin Sodium/ Sodium Chloride 500 ml @ As Directed STK-MED ONCE .ROUTE ; Start 08/05/16 at 09:36; Stop 08/05/16 at 09:37; Status DC Lidocaine/Sodium Bicarbonate (Buffered Lidocaine 1%) 2 ml 1X ONCE IJ Last administered on 08/05/16 10:04; Start 08/05/16 at 10:00; Stop 08/05/16 at 10:02 ; Status DC Heparin Sodium/ Sodium Chloride 60 unit 1X ONCE IV Last administered on 10:04; Start 08/05/16 at 10:00; Stop 08/05/16 at 10:02; Status DC Heparin Sodium (Porcine) 2,800 unit 1X ONCE INT CAT Last administered on 10:04; Start 08/05/16 at 10:00; Stop 08/05/16 at 10:02; Status DC Info (PHARMACY MONITORING -- do not chart) 1 each PRN DAILY PRN MC SEE COMMENTS ; Start 08/05/16 at 10:30; Stop 08/05/16 at 10:30; Status DC Info (PHARMACY MONITORING -- do not chart) 1 each PRN DAILY PRN MC SEE COMMENTS ; Start 08/05/16 at 10:30; Stop 08/05/16 at 10:30; Status DC Hydrocortisone Sodium Succinate 50 mg 50 mg BID IV Last administered on 07:49; Start 08/05/16 at 21:00; Stop 08/07/16 at 10:23; Status DC Sodium Chloride 160 meq/Sodium Acetate 60 meq/ Potassium Chloride 15 meq/ Potassium Acetate 30 meq/Magnesium Sulfate 25 meq/ Multivitamins/ Minerals 10 ml / Chromium/Copper/ Manganese/Seleni/ Zn 1 ml/Total Parenteral Nutrition/Amino Acids/Dextrose/ Fat Emulsion Intravenous 1,500 ml @ 62.5 mls/hr TPN CONT IV Last administered on 08/05/16 22:04; Start 08/05/16 at 22:00; Stop 08/06/16 at 21:59; Status DC Daptomycin 500 mg/ Sodium Chloride 50 ml @ 100 mls/hr Q24H IV Last administered on 08/08/16 13:27; Start 08/06/16 at 14:00 Sodium Chloride (Iv Sodium Chloride 0.9% 1000ml Bag) 1,000 ml @ 1,000 mls/hr Q1H PRN IV hypotension; Start 08/06/16 at 08:21; Stop 08/06/16 at 14:20; Status DC Diphenhydramine HCl (Benadryl) 25 mg 1X PRN PRN IV ITCHING; Start 08/06/16 at 08:30; Stop 08/07/16 at 08:29; Status DC Diphenhydramine HCl (Benadryl) 25 mg 1X PRN PRN IV ITCHING; Start 08/06/16 at 08:30; Stop 08/07/16 at 08:29; Status DC Sodium Chloride (Normal Saline Flush) 10 ml 1X PRN PRN IV AP catheter pack; Start 08/06/16 at 08:30; Stop 08/07/16 at 08:29; Status DC Sodium Chloride 10 ml 10 ml 1X PRN PRN IV REFUELING RAMP SUPERVISOR catheter pack; Start 08/06/16 at 08:30; Stop 08/07/16 at 08:29; Status DC Sodium Chloride (Iv Sodium Chloride 0.9% 1000ml Bag) 1,000 ml @ 400 mls/hr Q2H30M PRN IV PATENCY; Start 08/06/16 at 08:21; Stop 08/06/16 at 20:20; Status DC Info 1 each 1 each PRN DAILY PRN MC SEE COMMENTS; Start 08/06/16 at 08:30; Status UNV Albumin Human 200 ml @ 200 mls/hr 1X STAT IV Last administered on 08/06/16 10:09; Start 08/06/16 at 09:52; Stop 08/06/16 at 10:51; Status DC Sodium Chloride/ Sodium Acetate/ Potassium Chloride/ Potassium Acetate/ Magnesium Sulfate/ Multivitamins/ Minerals/Chromium/ Copper/Manganese/ Seleni/Zn /Total Parenteral Nutrition/Amino Acids/Dextrose/ Fat Emulsion Intravenous ( Sodium Chloride/ Infuvite Adult/ Multitrace-5 Conc/ Tpn - Tpn Flu... 1,500 ml @ 62.5 mls/hr TPN CONT IV Last administered on 08/06/16 21:57; Start at 22:00; Stop 08/07/16 at 21:59; Status DC Darbepoetin Sarbjit 60 mcg 60 mcg WEEKLYHS SQ ; Start 08/07/16 at 21:00; Status UNV Potassium Chloride (KCl Premix 20meq) 50 ml @ 50 mls/hr Q1H IV Last administered on 08/07/16 10:46; Start 08/07/16 at 08:00; Stop 08/07/16 at 09:59 ; Status DC Hydrocortisone Sodium Succinate 25 mg 25 mg BID IV ; Start 08/07/16 at 21:00; Stop 08/07/16 at 21:00; Status DC Sodium Chloride (Iv Sodium Chloride 0.9% 1000ml Bag) 1,000 ml @ 1,000 mls/hr Q1H PRN IV hypotension; Start 08/07/16 at 12:08; Stop 08/07/16 at 18:07; Status DC Diphenhydramine HCl (Benadryl) 25 mg 1X PRN PRN IV ITCHING; Start 08/07/16 at 12:15; Stop 08/08/16 at 12:14; Status DC Diphenhydramine HCl (Benadryl) 25 mg 1X PRN PRN IV ITCHING; Start 08/07/16 at 12:15; Stop 08/08/16 at 12:14; Status DC Sodium Chloride (Normal Saline Flush) 10 ml 1X PRN PRN IV AP catheter pack; Start 08/07/16 at 12:15; Stop 08/08/16 at 12:14; Status DC Sodium Chloride (Normal Saline Flush) 10 ml 1X PRN PRN IV REFUELING RAMP SUPERVISOR catheter pack; Start 08/07/16 at 12:15; Stop 08/08/16 at 12:14; Status DC Info (PHARMACY MONITORING -- do not chart) 1 each PRN DAILY PRN MC SEE COMMENTS ; Start 08/07/16 at 12:15; Status UNV Info 1 each 1 each PRN DAILY PRN MC SEE COMMENTS; Start 08/07/16 at 12:15; Status UNV Sodium Chloride 160 meq/Sodium Acetate 60 meq/ Potassium Chloride 55 meq/ Potassium Acetate 30 meq/Magnesium Sulfate 25 meq/ Multivitamins/ Minerals 10 ml / Chromium/Copper/ Manganese/Seleni/ Zn 1 ml/Total Parenteral Nutrition/Amino Acids/Dextrose/ Fat Emulsion Intravenous 1,500 ml @ 62.5 mls/hr TPN CONT IV Last administered on 08/07/16 21:41; Start 08/07/16 at 22:00; Stop 08/08/16 at 21:59 Potassium Chloride (KCl Premix 20meq) 50 ml @ 50 mls/hr 1X ONCE IV Last administered on 08/08/16 09:04; Start 08/08/16 at 10:00; Stop 08/08/16 at 10:59 ; Status DC Fentanyl Citrate 25 mcg 25 mcg PRN Q4HRS PRN IV PAIN Last administered on 15:02; Start 08/08/16 at 11:00 Potassium Chloride 50 ml @ 50 mls/hr 1X ONCE IV ; Start 08/08/16 at 11:15; Stop 08/08/16 at 12:14; Status DC Sodium Chloride/ Sodium Acetate/ Potassium Chloride/ Potassium Acetate/ Magnesium Sulfate/ Multivitamins/ Minerals/Chromium/ Copper/Manganese/ Seleni/Zn /Total Parenteral Nutrition/Amino Acids/Dextrose/ Fat Emulsion Intravenous ( Sodium Chloride/ Infuvite Adult/ Multitrace-5 Conc/ Tpn - Tpn Flu... 1,500 ml @ 62.5 mls/hr TPN CONT IV ; Start 08/08/16 at 22:00 Active Scripts Active Dilaudid (Hydromorphone Hcl) 4 Mg Tablet 4 Mg PO Q6HRS Phenazopyridine Hcl 200 Mg Tablet 200 Mg PO PRN TID PRN FENTANYL 50mcg/hr (Fentanyl) 1 Each Patch.td72 1 Patch TD Q3DAYS Anaspaz (Hyoscyamine Sulfate) 0.125 Mg Tab.rapdis 0.125 Mg PO Q6HRS PRN Cefpodoxime Proxetil 200 Mg Tablet 200 Mg PO BID Sertraline Hcl 50 Mg Tablet 100 Mg PO DAILY 30 Days Protonix (Pantoprazole Sodium) 40 Mg Tablet.dr 1 Tab PO DAILY Zinc Oxide 56.7 Gm Oint...g. 1 Sang TP BID Lidocaine 35.44 Gm Oint...g. 1 Sang TP BID Ondansetron Odt (Ondansetron) 4 Mg Tab.rapdis 8 Mg PO PRN Q8HRS PRN Gas-X (Simethicone) 80 Mg Tab.chew 80 Mg PO PRN QID PRN Reported Lorazepam 0.5 Mg Tablet 0.5 Mg PO PRN BID PRN Vitals/I & O Vital Sign - Last 24 Hours 08/07/16 08/07/16 08/07/16 08/07/16 16:00 16:00 16:03 17:00 Temp 97.5 97.5 Pulse 56 59 Resp 20 19 B/P 142/75 143/70 Pulse Ox 100 100 100 O2 Delivery Ventilator Mechanical Ventilator Ventilator Ventilator 08/07/16 08/07/16 08/07/16 08/07/16 18:00 18:08 19:00 19:36 Pulse 58 62 Resp 19 18 B/P 138/72 134/65 Pulse Ox 100 100 100 100 O2 Delivery Ventilator Ventilator Ventilator Ventilator 08/07/16 08/07/16 08/07/16 08/07/16 20:00 20:00 21:00 21:25 Temp 97.1 97.1 Pulse 68 60 Resp 18 19 B/P 147/67 134/66 Pulse Ox 100 100 100 O2 Delivery Ventilator Mechanical Ventilator Ventilator Ventilator 08/07/16 08/07/16 08/07/16 08/07/16 21:43 22:00 23:00 23:53 Pulse 64 68 Resp 19 18 18 B/P 136/68 124/69 Pulse Ox 100 100 100 100 O2 Delivery Ventilator Ventilator Ventilator Ventilator 08/08/16 08/08/16 08/08/16 08/08/16 00:00 00:00 01:00 01:15 Temp 97.1 97.1 Pulse 62 68 Resp 19 19 B/P 148/73 144/70 Pulse Ox 100 100 100 O2 Delivery Ventilator Mechanical Ventilator Ventilator Ventilator 08/08/16 08/08/16 08/08/16 08/08/16 02:00 03:00 03:16 03:38 Pulse 60 60 Resp 19 18 B/P 139/61 Pulse Ox 100 100 100 100 O2 Delivery Ventilator Ventilator Ventilator O2 Flow Rate 50.0 08/08/16 08/08/16 08/08/16 08/08/16 04:00 04:00 05:00 05:10 Temp 96.4 96.4 Pulse 74 80 Resp 18 18 B/P 140/79 124/72 Pulse Ox 100 100 100 O2 Delivery Mechanical Ventilator Ventilator Ventilator Ventilator 08/08/16 08/08/16 08/08/16 08/08/16 06:00 07:00 07:32 07:40 Pulse 82 88 Resp 19 18 B/P 120/67 117/66 Pulse Ox 100 100 100 O2 Delivery Ventilator Ventilator Ventilator Ventilator 08/08/16 08/08/16 08/08/16 08/08/16 08:00 08:00 09:00 10:00 Temp 98.3 98.3 Pulse 88 92 102 Resp 17 16 18 B/P 131/65 134/62 152/70 Pulse Ox 100 100 100 O2 Delivery Ventilator Mechanical Ventilator Ventilator Ventilator 08/08/16 08/08/16 08/08/16 08/08/16 10:10 10:21 10:51 11:00 Pulse 93 Resp 14 15 B/P 127/74 Pulse Ox 100 100 100 O2 Delivery Ventilator Ventilator Ventilator Ventilator O2 Flow Rate 50.0 08/08/16 08/08/16 08/08/16 08/08/16 11:48 12:00 12:00 12:05 Temp 97.6 97.6 Pulse 102 Resp 14 14 B/P 127/93 Pulse Ox 100 100 100 O2 Delivery Ventilator Ventilator Mechanical Ventilator Ventilator 08/08/16 08/08/16 08/08/16 08/08/16 12:35 13:00 14:00 14:11 Pulse 98 95 88 Resp 14 14 15 15 B/P 118/74 123/78 124/78 Pulse Ox 100 100 100 100 O2 Delivery Ventilator Ventilator Ventilator Ventilator 08/08/16 08/08/16 08/08/16 08/08/16 14:26 14:37 14:39 14:54 Pulse 92 86 86 88 Resp 14 14 14 14 B/P 129/75 117/89 117/89 138/72 Pulse Ox 100 100 100 100 O2 Delivery Ventilator Ventilator Ventilator Ventilator 08/08/16 08/08/16 14:57 15:02 Pulse 87 Resp 14 14 B/P 133/72 Pulse Ox 100 100 O2 Delivery Ventilator Ventilator Intake and Output 08/07/16 08/07/16 08/08/16 15:00 23:00 07:00 Intake Total 75 ml 882 ml 1316 ml Output Total 1550 ml 1010 ml 1980 ml Balance -1475 ml -128 ml -664 ml MATT PALACIOS MD Aug 08, 2016 15:20
--- NOTE | 2016-08-08 16:49 | PDOC ---
Provider Note Provider Note RENAL F/U : KYLIE S : Doing OK Intubated. O : VSS Afebrile. Neck : Supple. Lungs : Non labored. CVS : RRR ABD : Portly, benign appearing. No distention. Ext. : No major edema. Labs reviewed. A/P: ARF : Multifactorial. ATN. Last HD yesterday. No RX needed today. EDEMA: On LASIX gtt. ABD PAIN/ ENETROCUTANEOUS FISTULA : Supportive care Watch labs. CPM. J LUIS ESPINAL MD Aug 08, 2016 16:48
[2016-08-08] MEDS ORDERED: DEXTROSE 70% IV SCH ×10 (22:00)
[2016-08-08] MEDS ORDERED: [UNRECOGNIZED DRUG - OTHER] IV SCH ×10 (22:00)
[2016-08-08] MEDS ORDERED: TOTAL PARENTERAL NUTRITION IV SCH ×10 (22:00)
[2016-08-08] MEDS ORDERED: AMINO ACID IV SCH ×10 (22:00)
[2016-08-09] VITALS (24 sets, daily range): BP systolic 93–173; BP diastolic 61–89
[2016-08-09] MEDS: MICAFUNGIN 100 MG in IV DEXTROSE 5% 100 ML IV SCH (01:20)
[2016-08-09] MEDS: LORAZEPAM 2 MG/ML VIAL IV PRN ×2 (02:31→17:19)
[2016-08-09] MEDS: FENTANYL PF 100 MCG/2 ML VIAL. IV PRN ×3 (02:31→15:04)
[2016-08-09 05:53] LABS: BASO # 0.1 x10^3/uL (0.0-0.2); BASO % 1 % (0-3); EOS % 3 % (0-3); HEMATOCRIT 27.1 % (36.0-47.0); HEMOGLOBIN 8.5 g/dL (12.0-15.5); LYMPH # 1.6 x10^3/uL (1.0-4.8); LYMPH % 17 % (24-48); MEAN CORPUSCULAR HEMOGLOBIN 26 pg (25-35); MEAN CORPUSCULAR HGB CONC 31 g/dL (31-37); MEAN CORPUSCULAR VOLUME 82 fL (79-100); MONO % 7 % (0-9); NEUT % 72 % (31-73); PLATELET COUNT 68 x10^3/uL (140-400); RED BLOOD COUNT 3.31 x10^6/uL (3.50-5.40); RED CELL DISTRIBUTION WIDTH 21.1 % (11.5-14.5); WHITE BLOOD COUNT 9.2 x10^3/uL (4.0-11.0)
[2016-08-09] MEDS: INSULIN ASPART 300 UNITS/3 ML INSULN.PEN SQ SCH ×4 (05:59→16:59)
[2016-08-09 06:05] LABS: CREATININE 1.1 mg/dL (0.6-1.0); GFR 61.1; MAGNESIUM 2.4 mg/dL (1.8-2.4); POTASSIUM 3.7 mmol/L (3.5-5.1)
[2016-08-09] MEDS: HYDROMORPHONE 2 MG/ML VIAL. IV PRN (06:39)
[2016-08-09] MEDS: FUROSEMIDE INJ 100 MG in IV NORMAL SALINE 100ML 100 ML IV PRN (06:43)
[2016-08-09] MEDS: PANTOPRAZOLE IV PUSH 40 MG VIAL. IVP SCH (07:20)
[2016-08-09] MEDS: TIGECYCLINE IV SCH (07:20)
[2016-08-09] MEDS: NORMAL SALINE IV SCH ×2 (07:20→13:44)
[2016-08-09] MEDS: ZINC OXIDE 20% TOPICAL OINTMENT 28GM TUBE. TP SCH ×2 (07:21→22:44)
[2016-08-09] MEDS: LIDOCAINE 5% TOPICAL OINTMENT 35GM TUBE. TP SCH ×2 (07:21→22:44)
[2016-08-09 07:25] LABS: ANISOCYTOSIS MOD; HYPOCHROMIA PRESENT; PLT ESTIMATE DECREASED (ADEQUATE)
[2016-08-09] MEDS: IPRATRPIUM/ALBUTEROL 0.5/2.5MG 3 ML NEBU. NEB SCH ×4 (08:44→20:39)
--- NOTE | 2016-08-09 09:21 | PDOC ---
PULMONARY PROGRESS NOTES Subjective still lethargic but a bit more awake on CPAP Vitals Vital Signs Date Time Temp Pulse Resp B/P Pulse Ox O2 Delivery O2 Flow Rate FiO2 08/09/16 09:00 108 17 131/86 100 Ventilator 08/09/16 07:00 97.9 97.9 08/08/16 10:21 50.0 General: Lethargic HEENT: Other (nc at perrl, nose clear, orally intuvated. ) Lungs: Other (decrease bs) Cardiovascular: S1, S2 Abdomen: Soft, Non-tender, Other Skin: Warm Labs Laboratory Tests Test 08/07/16 12:37 08/07/16 18:08 08/08/16 00:06 08/08/16 05:00 Glucose (Fingerstick) 154mg/dL (70-99) 169mg/dL (70-99) 158mg/dL (70-99) White Blood Count 10.2x10^3/uL (4.0-11.0) Red Blood Count 3.32x10^6/uL (3.50-5.40) Hemoglobin 8.5g/dL (12.0-15.5) Hematocrit 25.8% (36.0-47.0) Mean Corpuscular Volume 78fL (79-100) Mean Corpuscular Hemoglobin 26pg (25-35) Mean Corpuscular Hemoglobin Concent 33g/dL (31-37) Red Cell Distribution Width 20.6% (11.5-14.5) Platelet Count 60x10^3/uL (140-400) Neutrophils (%) (Auto) 71% (31-73) Lymphocytes (%) (Auto) 19% (24-48) Monocytes (%) (Auto) 10% (0-9) Eosinophils (%) (Auto) 0% (0-3) Basophils (%) (Auto) 0% (0-3) Neutrophils # (Auto) 7.3x10^3uL (1.8-7.7) Lymphocytes # (Auto) 1.9x10^3/uL (1.0-4.8) Monocytes # (Auto) 1.0x10^3/uL (0.0-1.1) Eosinophils # (Auto) 0.0x10^3/uL (0.0-0.7) Basophils # (Auto) 0.0x10^3/uL (0.0-0.2) Fibrinogen 102mg/dL (200-440) Sodium Level 146mmol/L (136-145) Potassium Level 2.7mmol/L (3.5-5.1) Chloride Level 106mmol/L (98-107) Carbon Dioxide Level 31mmol/L (21-32) Anion Gap 9 (6-14) Blood Urea Nitrogen 55mg/dL (7-20) Creatinine 0.9mg/dL (0.6-1.0) Estimated GFR (Cockcroft-Gault) 77.0 BUN/Creatinine Ratio 61 (6-20) Glucose Level 112mg/dL (70-99) Lactic Acid Level 1.3mmol/L (0.4-2.0) Calcium Level 9.0mg/dL (8.5-10.1) Phosphorus Level 3.8mg/dL (2.6-4.7) Magnesium Level 2.0mg/dL (1.8-2.4) Total Bilirubin 5.5mg/dL (0.2-1.0) Aspartate Amino Transf (AST/SGOT) 31U/L (15-37) Alanine Aminotransferase (ALT/SGPT) 47U/L (14-59) Alkaline Phosphatase 178U/L (46-116) Total Protein 6.5g/dL (6.4-8.2) Albumin 3.0g/dL (3.4-5.0) Albumin/Globulin Ratio 0.9 (1.0-1.7) Test 08/08/16 05:28 08/08/16 09:50 08/08/16 11:40 08/08/16 13:15 Glucose (Fingerstick) 109mg/dL (70-99) 134mg/dL (70-99) O2 Saturation 99% (92-99) Arterial Blood pH 7.51 (7.35-7.45) Arterial Blood pCO2 at Patient Temp 35mmHg (35-46) Arterial Blood pO2 at Patient Temp 185mmHg (65-108) Arterial Blood HCO3 28mmol/L (21-28) Arterial Blood Base Excess 4mmol/L (-3-3) FiO2 35 Potassium Level 3.2mmol/L (3.5-5.1) Test 08/08/16 18:42 08/09/16 00:18 08/09/16 05:35 08/09/16 05:42 Glucose (Fingerstick) 126mg/dL (70-99) 137mg/dL (70-99) 113mg/dL (70-99) White Blood Count 9.2x10^3/uL (4.0-11.0) Red Blood Count 3.31x10^6/uL (3.50-5.40) Hemoglobin 8.5g/dL (12.0-15.5) Hematocrit 27.1% (36.0-47.0) Mean Corpuscular Volume 82fL (79-100) Mean Corpuscular Hemoglobin 26pg (25-35) Mean Corpuscular Hemoglobin Concent 31g/dL (31-37) Red Cell Distribution Width 21.1% (11.5-14.5) Platelet Count 68x10^3/uL (140-400) Neutrophils (%) (Auto) 72% (31-73) Lymphocytes (%) (Auto) 17% (24-48) Monocytes (%) (Auto) 7% (0-9) Eosinophils (%) (Auto) 3% (0-3) Basophils (%) (Auto) 1% (0-3) Neutrophils # (Auto) 6.5x10^3uL (1.8-7.7) Lymphocytes # (Auto) 1.6x10^3/uL (1.0-4.8) Monocytes # (Auto) 0.7x10^3/uL (0.0-1.1) Eosinophils # (Auto) 0.2x10^3/uL (0.0-0.7) Basophils # (Auto) 0.1x10^3/uL (0.0-0.2) Platelet Estimate Decreased (ADEQUATE) Giant Platelets Present Hypochromasia Present Anisocytosis Mod Sodium Level 151mmol/L (136-145) Potassium Level 3.7mmol/L (3.5-5.1) Chloride Level 110mmol/L (98-107) Carbon Dioxide Level 36mmol/L (21-32) Anion Gap 5 (6-14) Blood Urea Nitrogen 76mg/dL (7-20) Creatinine 1.1mg/dL (0.6-1.0) Estimated GFR (Cockcroft-Gault) 61.1 Glucose Level 110mg/dL (70-99) Lactic Acid Level 0.9mmol/L (0.4-2.0) Calcium Level 9.0mg/dL (8.5-10.1) Magnesium Level 2.4mg/dL (1.8-2.4) Vancomycin Level Trough < 0.8mcg/mL (10.0-20.0) Vancomycin Last Dose Date 08/08/16 Vancomycin Last Dose Time 1600 Laboratory Tests Test 08/08/16 09:50 08/08/16 11:40 08/08/16 13:15 08/08/16 18:42 O2 Saturation 99% (92-99) Arterial Blood pH 7.51 (7.35-7.45) Arterial Blood pCO2 at Patient Temp 35mmHg (35-46) Arterial Blood pO2 at Patient Temp 185mmHg (65-108) Arterial Blood HCO3 28mmol/L (21-28) Arterial Blood Base Excess 4mmol/L (-3-3) FiO2 35 Glucose (Fingerstick) 134mg/dL (70-99) 126mg/dL (70-99) Potassium Level 3.2mmol/L (3.5-5.1) Test 08/09/16 00:18 08/09/16 05:35 08/09/16 05:42 Glucose (Fingerstick) 137mg/dL (70-99) 113mg/dL (70-99) White Blood Count 9.2x10^3/uL (4.0-11.0) Red Blood Count 3.31x10^6/uL (3.50-5.40) Hemoglobin 8.5g/dL (12.0-15.5) Hematocrit 27.1% (36.0-47.0) Mean Corpuscular Volume 82fL (79-100) Mean Corpuscular Hemoglobin 26pg (25-35) Mean Corpuscular Hemoglobin Concent 31g/dL (31-37) Red Cell Distribution Width 21.1% (11.5-14.5) Platelet Count 68x10^3/uL (140-400) Neutrophils (%) (Auto) 72% (31-73) Lymphocytes (%) (Auto) 17% (24-48) Monocytes (%) (Auto) 7% (0-9) Eosinophils (%) (Auto) 3% (0-3) Basophils (%) (Auto) 1% (0-3) Neutrophils # (Auto) 6.5x10^3uL (1.8-7.7) Lymphocytes # (Auto) 1.6x10^3/uL (1.0-4.8) Monocytes # (Auto) 0.7x10^3/uL (0.0-1.1) Eosinophils # (Auto) 0.2x10^3/uL (0.0-0.7) Basophils # (Auto) 0.1x10^3/uL (0.0-0.2) Platelet Estimate Decreased (ADEQUATE) Giant Platelets Present Hypochromasia Present Anisocytosis Mod Sodium Level 151mmol/L (136-145) Potassium Level 3.7mmol/L (3.5-5.1) Chloride Level 110mmol/L (98-107) Carbon Dioxide Level 36mmol/L (21-32) Anion Gap 5 (6-14) Blood Urea Nitrogen 76mg/dL (7-20) Creatinine 1.1mg/dL (0.6-1.0) Estimated GFR (Cockcroft-Gault) 61.1 Glucose Level 110mg/dL (70-99) Lactic Acid Level 0.9mmol/L (0.4-2.0) Calcium Level 9.0mg/dL (8.5-10.1) Magnesium Level 2.4mg/dL (1.8-2.4) Vancomycin Level Trough < 0.8mcg/mL (10.0-20.0) Vancomycin Last Dose Date 08/08/16 Vancomycin Last Dose Time 1600 Medications Active Scripts Medications Dose Route/Sig Days Date Category Dilaudid (Hydromorphone Hcl) 4 Mg Tablet 4 Mg PO Q6HRS 06/29/16 Rx Phenazopyridine Hcl 200 Mg Tablet 200 Mg PO PRN TID PRN 06/29/16 Rx FENTANYL 50mcg/hr (Fentanyl) 1 Each Patch.td72 1 Patch TD Q3DAYS 06/29/16 Rx Anaspaz (Hyoscyamine Sulfate) 0.125 Mg Tab.rapdis 0.125 Mg PO Q6HRS PRN 06/29/16 Rx Cefpodoxime Proxetil 200 Mg Tablet 200 Mg PO BID 06/29/16 Rx Sertraline Hcl 50 Mg Tablet 100 Mg PO DAILY 30 05/12/16 Rx Protonix (Pantoprazole Sodium) 40 Mg Tablet.dr 1 Tab PO DAILY 12/27/15 Rx Zinc Oxide 56.7 Gm Oint...g. 1 Sang TP BID 12/18/15 Rx Lidocaine 35.44 Gm Oint...g. 1 Sang TP BID 12/18/15 Rx Ondansetron Odt (Ondansetron) 4 Mg Tab.rapdis 8 Mg PO PRN Q8HRS PRN 07/03/15 Rx Gas-X (Simethicone) 80 Mg Tab.chew 80 Mg PO PRN QID PRN 09/30/14 Rx Lorazepam 0.5 Mg Tablet 0.5 Mg PO PRN BID PRN 11/08/13 Reported Comments CXR 08/07 RESOLVED CHF Impression . 1. Acute respiratory failure, multifactorial. 2. Septic shock. off pressors 3. Bilateral pulmonary infiltrates compatible with pulmonary edema, /doubt pneumonia. resolved 4. Fungemia./Urine MDR Enterobacter and Amp res Enterococcus 07/15 5. Chronic enterocutaneous fistula. 6. Metabolic toxic encephalopathy. 7. Acute renal failure. 8. Xpandiar-[id number] protein malnutrition, present upon admission. 9. Metabolic acidosis. resolved 10.Thrombocytopenia, sepsis induced 11. Medication induced encephalopathy Plan . Extended CPAP trial today not ready for extubation prn fentanyl abx per ID off solucortef, bronchodilator monitor Plt cont abx, antifungal per ID protonix, scds for prophylaxis d/w RN/RT and family ROSAMARIA GUNDERSON MD Aug 09, 2016 09:21
[2016-08-09] MEDS ORDERED: TIGECYCLINE 50 MG in IV NORMAL SALINE 50ML 50 ML IV SCH (09:42)
--- NOTE | 2016-08-09 10:04 | PDOC ---
Infectious Disease Note Subjective Subjective Intubated. TPN No fever ROS ROS Limited Vital Sign Vital Signs Vital Signs Date Time Temp Pulse Resp B/P Pulse Ox O2 Delivery O2 Flow Rate FiO2 08/09/16 09:49 14 100 Ventilator 08/09/16 09:00 108 131/86 08/09/16 07:00 97.9 97.9 08/08/16 10:21 50.0 Physical Exam PHYSICAL EXAM GENERAL: Up in the chair, NAD HEENT: icterus. ETT. OGT LUNGS: Clear HEART: S1S2, regular, tachy ABD: Soft, NT, BS present : [place] EXT: BUE edema. 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 clean Labs Lab Laboratory Tests Test 08/08/16 11:40 08/08/16 13:15 08/08/16 18:42 08/09/16 00:18 Glucose (Fingerstick) 134mg/dL (70-99) 126mg/dL (70-99) 137mg/dL (70-99) Potassium Level 3.2mmol/L (3.5-5.1) Test 08/09/16 05:35 08/09/16 05:42 White Blood Count 9.2x10^3/uL (4.0-11.0) Red Blood Count 3.31x10^6/uL (3.50-5.40) Hemoglobin 8.5g/dL (12.0-15.5) Hematocrit 27.1% (36.0-47.0) Mean Corpuscular Volume 82fL (79-100) Mean Corpuscular Hemoglobin 26pg (25-35) Mean Corpuscular Hemoglobin Concent 31g/dL (31-37) Red Cell Distribution Width 21.1% (11.5-14.5) Platelet Count 68x10^3/uL (140-400) Neutrophils (%) (Auto) 72% (31-73) Lymphocytes (%) (Auto) 17% (24-48) Monocytes (%) (Auto) 7% (0-9) Eosinophils (%) (Auto) 3% (0-3) Basophils (%) (Auto) 1% (0-3) Neutrophils # (Auto) 6.5x10^3uL (1.8-7.7) Lymphocytes # (Auto) 1.6x10^3/uL (1.0-4.8) Monocytes # (Auto) 0.7x10^3/uL (0.0-1.1) Eosinophils # (Auto) 0.2x10^3/uL (0.0-0.7) Basophils # (Auto) 0.1x10^3/uL (0.0-0.2) Platelet Estimate Decreased (ADEQUATE) Giant Platelets Present Hypochromasia Present Anisocytosis Mod Sodium Level 151mmol/L (136-145) Potassium Level 3.7mmol/L (3.5-5.1) Chloride Level 110mmol/L (98-107) Carbon Dioxide Level 36mmol/L (21-32) Anion Gap 5 (6-14) Blood Urea Nitrogen 76mg/dL (7-20) Creatinine 1.1mg/dL (0.6-1.0) Estimated GFR (Cockcroft-Gault) 61.1 Glucose Level 110mg/dL (70-99) Lactic Acid Level 0.9mmol/L (0.4-2.0) Calcium Level 9.0mg/dL (8.5-10.1) Magnesium Level 2.4mg/dL (1.8-2.4) Vancomycin Level Trough < 0.8mcg/mL (10.0-20.0) Vancomycin Last Dose Date 08/08/16 Vancomycin Last Dose Time 1600 Glucose (Fingerstick) 113mg/dL (70-99) Micro 08/01. BLOOD CULTURE Preliminary NO GROWTH AFTER 1 DAY Objective Assessment C [place] sepsis - 07/27 - line removed and positive 07/29. OFF Levophed ? DIC with elevated INR - platelets - stable Acute resp failure - intubated -some infiltrates on hydrocortisone JULIO C - getting HD for fluid removal Fever and chills- better Acute Anemia - s/p PRBCs Urine MDR Enterobacter and Amp res Enterococcus 07/15 EC fistula Enterovesicular fistula Abdominal excoriation Plan Plan of Care continue micafungin and daptomycin D/c Tygacil (started 07/31) Repeat Blood cults 08/01 NGTD ECHO neg veg, 07/30 Will need Optho eval Monitor labs. await sensitivities Critically ill Patient seen and examined. Chart reviewed. Case discussed with [employer]ER. Agree with above plan. MAYELIN COLEMAN APRN Aug 09, 2016 10:04 RUSTY HERNANDEZ MD Aug 09, 2016 16:53
--- NOTE | 2016-08-09 11:12 | PDOC ---
PROGRESS NOTES Subjective Subjective 61yo female ana glabrata septic shock, JULIO C, VDRF. We were consulted for DIC. Renal function better. On minimal settings and off pressors. Remains on TPN. Labs show evidence of ongoing DIC and has received cryo 08/05, 08/06, 08/08. Eyes to voice. Remains intubated. Platelets improving Objective Objective Vital Signs Date Time Temp Pulse Resp B/P Pulse Ox O2 Delivery O2 Flow Rate FiO2 08/09/16 10:00 106 16 126/73 100 Ventilator 08/09/16 07:00 97.9 97.9 08/08/16 10:21 50.0 Intake and Output 08/09/16 07:00 Intake Total 1582 ml Output Total 4790 ml Balance -3208 ml IV Total 772 ml Other 810 ml Output Urine Total 1965 ml Drainage Total 2825 ml Physical Exam Abdomen: Soft Heart: Other (regular tachycardia) Extremities: Normal pulses General: Alert HEENT: Atraumatic Lungs: Normal air movement Neck: Supple Psych/Mental Status: Other (Sedated, eyes to voice) Assessment Assessment Problems Impression: Acute DIC Thrombocytopenia Anemia Ana glabrata sepsis VDRF JULIO C, improving Plan: Check DIC panel today. Transfuse cryo to fibrinogen >100. Platelets improving; typically indicates improving DIC. Continue sepsis care. Comment Review of Relevant I have reviewed the following items lucila (where applicable) has been applied. Labs Laboratory Tests Test 08/07/16 12:37 08/07/16 18:08 08/08/16 00:06 08/08/16 05:00 Glucose (Fingerstick) 154mg/dL (70-99) 169mg/dL (70-99) 158mg/dL (70-99) White Blood Count 10.2x10^3/uL (4.0-11.0) Red Blood Count 3.32x10^6/uL (3.50-5.40) Hemoglobin 8.5g/dL (12.0-15.5) Hematocrit 25.8% (36.0-47.0) Mean Corpuscular Volume 78fL (79-100) Mean Corpuscular Hemoglobin 26pg (25-35) Mean Corpuscular Hemoglobin Concent 33g/dL (31-37) Red Cell Distribution Width 20.6% (11.5-14.5) Platelet Count 60x10^3/uL (140-400) Neutrophils (%) (Auto) 71% (31-73) Lymphocytes (%) (Auto) 19% (24-48) Monocytes (%) (Auto) 10% (0-9) Eosinophils (%) (Auto) 0% (0-3) Basophils (%) (Auto) 0% (0-3) Neutrophils # (Auto) 7.3x10^3uL (1.8-7.7) Lymphocytes # (Auto) 1.9x10^3/uL (1.0-4.8) Monocytes # (Auto) 1.0x10^3/uL (0.0-1.1) Eosinophils # (Auto) 0.0x10^3/uL (0.0-0.7) Basophils # (Auto) 0.0x10^3/uL (0.0-0.2) Fibrinogen 102mg/dL (200-440) Sodium Level 146mmol/L (136-145) Potassium Level 2.7mmol/L (3.5-5.1) Chloride Level 106mmol/L (98-107) Carbon Dioxide Level 31mmol/L (21-32) Anion Gap 9 (6-14) Blood Urea Nitrogen 55mg/dL (7-20) Creatinine 0.9mg/dL (0.6-1.0) Estimated GFR (Cockcroft-Gault) 77.0 BUN/Creatinine Ratio 61 (6-20) Glucose Level 112mg/dL (70-99) Lactic Acid Level 1.3mmol/L (0.4-2.0) Calcium Level 9.0mg/dL (8.5-10.1) Phosphorus Level 3.8mg/dL (2.6-4.7) Magnesium Level 2.0mg/dL (1.8-2.4) Total Bilirubin 5.5mg/dL (0.2-1.0) Aspartate Amino Transf (AST/SGOT) 31U/L (15-37) Alanine Aminotransferase (ALT/SGPT) 47U/L (14-59) Alkaline Phosphatase 178U/L (46-116) Total Protein 6.5g/dL (6.4-8.2) Albumin 3.0g/dL (3.4-5.0) Albumin/Globulin Ratio 0.9 (1.0-1.7) Test 08/08/16 05:28 08/08/16 09:50 08/08/16 11:40 08/08/16 13:15 Glucose (Fingerstick) 109mg/dL (70-99) 134mg/dL (70-99) O2 Saturation 99% (92-99) Arterial Blood pH 7.51 (7.35-7.45) Arterial Blood pCO2 at Patient Temp 35mmHg (35-46) Arterial Blood pO2 at Patient Temp 185mmHg (65-108) Arterial Blood HCO3 28mmol/L (21-28) Arterial Blood Base Excess 4mmol/L (-3-3) FiO2 35 Potassium Level 3.2mmol/L (3.5-5.1) Test 08/08/16 18:42 08/09/16 00:18 08/09/16 05:35 08/09/16 05:42 Glucose (Fingerstick) 126mg/dL (70-99) 137mg/dL (70-99) 113mg/dL (70-99) White Blood Count 9.2x10^3/uL (4.0-11.0) Red Blood Count 3.31x10^6/uL (3.50-5.40) Hemoglobin 8.5g/dL (12.0-15.5) Hematocrit 27.1% (36.0-47.0) Mean Corpuscular Volume 82fL (79-100) Mean Corpuscular Hemoglobin 26pg (25-35) Mean Corpuscular Hemoglobin Concent 31g/dL (31-37) Red Cell Distribution Width 21.1% (11.5-14.5) Platelet Count 68x10^3/uL (140-400) Neutrophils (%) (Auto) 72% (31-73) Lymphocytes (%) (Auto) 17% (24-48) Monocytes (%) (Auto) 7% (0-9) Eosinophils (%) (Auto) 3% (0-3) Basophils (%) (Auto) 1% (0-3) Neutrophils # (Auto) 6.5x10^3uL (1.8-7.7) Lymphocytes # (Auto) 1.6x10^3/uL (1.0-4.8) Monocytes # (Auto) 0.7x10^3/uL (0.0-1.1) Eosinophils # (Auto) 0.2x10^3/uL (0.0-0.7) Basophils # (Auto) 0.1x10^3/uL (0.0-0.2) Platelet Estimate Decreased (ADEQUATE) Giant Platelets Present Hypochromasia Present Anisocytosis Mod Sodium Level 151mmol/L (136-145) Potassium Level 3.7mmol/L (3.5-5.1) Chloride Level 110mmol/L (98-107) Carbon Dioxide Level 36mmol/L (21-32) Anion Gap 5 (6-14) Blood Urea Nitrogen 76mg/dL (7-20) Creatinine 1.1mg/dL (0.6-1.0) Estimated GFR (Cockcroft-Gault) 61.1 Glucose Level 110mg/dL (70-99) Lactic Acid Level 0.9mmol/L (0.4-2.0) Calcium Level 9.0mg/dL (8.5-10.1) Magnesium Level 2.4mg/dL (1.8-2.4) Vancomycin Level Trough < 0.8mcg/mL (10.0-20.0) Vancomycin Last Dose Date 08/08/16 Vancomycin Last Dose Time 1600 Test 08/09/16 11:04 Glucose (Fingerstick) 142mg/dL (70-99) Laboratory Tests Test 08/08/16 11:40 08/08/16 13:15 08/08/16 18:42 08/09/16 00:18 Glucose (Fingerstick) 134mg/dL (70-99) 126mg/dL (70-99) 137mg/dL (70-99) Potassium Level 3.2mmol/L (3.5-5.1) Test 08/09/16 05:35 08/09/16 05:42 08/09/16 11:04 White Blood Count 9.2x10^3/uL (4.0-11.0) Red Blood Count 3.31x10^6/uL (3.50-5.40) Hemoglobin 8.5g/dL (12.0-15.5) Hematocrit 27.1% (36.0-47.0) Mean Corpuscular Volume 82fL (79-100) Mean Corpuscular Hemoglobin 26pg (25-35) Mean Corpuscular Hemoglobin Concent 31g/dL (31-37) Red Cell Distribution Width 21.1% (11.5-14.5) Platelet Count 68x10^3/uL (140-400) Neutrophils (%) (Auto) 72% (31-73) Lymphocytes (%) (Auto) 17% (24-48) Monocytes (%) (Auto) 7% (0-9) Eosinophils (%) (Auto) 3% (0-3) Basophils (%) (Auto) 1% (0-3) Neutrophils # (Auto) 6.5x10^3uL (1.8-7.7) Lymphocytes # (Auto) 1.6x10^3/uL (1.0-4.8) Monocytes # (Auto) 0.7x10^3/uL (0.0-1.1) Eosinophils # (Auto) 0.2x10^3/uL (0.0-0.7) Basophils # (Auto) 0.1x10^3/uL (0.0-0.2) Platelet Estimate Decreased (ADEQUATE) Giant Platelets Present Hypochromasia Present Anisocytosis Mod Sodium Level 151mmol/L (136-145) Potassium Level 3.7mmol/L (3.5-5.1) Chloride Level 110mmol/L (98-107) Carbon Dioxide Level 36mmol/L (21-32) Anion Gap 5 (6-14) Blood Urea Nitrogen 76mg/dL (7-20) Creatinine 1.1mg/dL (0.6-1.0) Estimated GFR (Cockcroft-Gault) 61.1 Glucose Level 110mg/dL (70-99) Lactic Acid Level 0.9mmol/L (0.4-2.0) Calcium Level 9.0mg/dL (8.5-10.1) Magnesium Level 2.4mg/dL (1.8-2.4) Vancomycin Level Trough < 0.8mcg/mL (10.0-20.0) Vancomycin Last Dose Date 08/08/16 Vancomycin Last Dose Time 1600 Glucose (Fingerstick) 113mg/dL (70-99) 142mg/dL (70-99) Microbiology 08/01/16 Blood Culture - Final, Complete NO GROWTH AFTER 5 DAYS 07/15/16 Urine Culture - Final, Complete 07/15/16 Urine Culture Result 1 (ROYA) - Final, Complete 07/15/16 Urine Culture Result 2 (ROYA) - Final, Complete 07/15/16 Antimicrobic Susceptibility - Final, Complete 07/29/16 Aerobic Culture - Final, Complete 07/29/16 Aerobic Culture Result 1 (ROYA) - Final, Complete Medications Current Medications Piperacillin Sod/ Tazobactam Sod/ Sodium Chloride (Zosyn/Iv Sodium Chloride 0.9 % 100ml) 100 ml @ 200 mls/hr 1X ONCE IV Last administered on 07/15/16 22:56; Start 07/15/16 at 22:00; Stop 07/15/16 at 22:29; Status DC Fentanyl Citrate 50 mcg 50 mcg PRN Q15MIN PRN IV PAIN GREATER THAN 3/10 Last administered on 07/16/16 00:30; Start 07/15/16 at 21:45; Stop 07/16/16 at 02:00; Status DC Sodium Chloride 1,000 ml @ 1,000 mls/hr 1X ONCE IV Last administered on 21:59; Start 07/15/16 at 22:00; Stop 07/15/16 at 22:59; Status DC Sodium Chloride (Iv Sodium Chloride 0.9% 500ml Bag) 500 ml @ 500 mls/hr 1X ONCE IV Last administered on 07/15/16 22:00; Start 07/15/16 at 22:00; Stop at 22:59; Status DC Ondansetron HCl (Zofran) 4 mg PRN Q8HRS PRN IV NAUSEA/VOMITING; Start 07/15/16 at 23:30; Stop 07/16/16 at 08:52; Status DC Fentanyl Citrate 50 mcg 50 mcg PRN Q2HR PRN IV SEVERE PAIN Last administered on 07/16/16 08:10; Start 07/15/16 at 23:30; Stop 07/16/16 at 08:52; Status DC Sodium Chloride (Iv Sodium Chloride 0.9% 1000ml Bag) 1,000 ml @ 150 mls/hr Q6H40M IV Last administered on 07/15/16 02:00; Start 07/15/16 at 23:45; Stop 07/16/16 at 08:52; Status DC Acetaminophen (Tylenol) 650 mg PRN Q4HRS PRN PO FEVER; Start 07/15/16 at 23:30; Stop 07/16/16 at 23:29; Status DC Info (Do NOT chart on this placeholder) 1 each PRN DAILY PRN MC NEEDS VERIFICATION; Start 07/16/16 at 03:00; Status Cancel Acetaminophen 650 mg 650 mg PRN Q4HRS PRN PO MILD PAIN / TEMP Last administered on 07/28/16 07:42; Start 07/16/16 at 08:45; Stop 07/29/16 at 08:33 ; Status DC Piperacillin Sod/ Tazobactam Sod 3.375 gm/Sodium Chloride 50 ml @ 100 mls/hr Q6HRS IV Last administered on 07/18/16 05:50; Start 07/16/16 at 10:00; Stop 07/18 at 13:28; Status DC Linezolid (Zyvox Premix) 300 ml @ 300 mls/hr Q12HR IV Last administered on 07/18 08:34; Start 07/16/16 at 10:00; Stop 07/18/16 at 13:28; Status DC Hydromorphone HCl (Dilaudid) 2 mg PRN Q4HRS PRN IV MODERATE PAIN Last administered on 08/09/16 06:39; Start 07/16/16 at 08:45 Hydromorphone HCl (Dilaudid) 4 mg PRN Q4HRS PRN IV SEVERE PAIN Last administered on 07/30/16 09:23; Start 07/16/16 at 08:45; Stop 07/31/16 at 15:01 ; Status DC Pantoprazole Sodium (Protonix) 40 mg DAILYAC PO Last administered on 07/27/16 11:11; Start 07/16/16 at 09:30; Stop 07/29/16 at 08:44; Status DC Hyoscyamine (Anaspaz) 0.125 mg Q6HRS PO Last administered on 07/20/16 05:20; Start 07/16/16 at 12:00; Stop 07/20/16 at 08:58; Status DC Phenazopyridine HCl (Pyridium) 200 mg TID PO Last administered on 07/20/16 08: 25; Start 07/16/16 at 09:30; Stop 07/20/16 at 08:58; Status DC Lorazepam (Ativan) 0.5 mg PRN BID PRN PO ANXIETY / AGITATION Last administered on 07/29/16 02:16; Start 07/16/16 at 08:45; Stop 07/31/16 at 15:01; Status DC Simethicone (Gas-X) 80 mg PRN Q4HRS PRN PO GAS / BLOATING Last administered on 07/24/16 22:30; Start 07/16/16 at 08:45; Stop 07/31/16 at 15:01; Status DC Zolpidem Tartrate 5 mg 5 mg PRN QHS PRN PO INSOMNIA Last administered on 23:14; Start 07/16/16 at 08:45; Stop 07/31/16 at 15:01; Status DC Potassium Chloride/Dextrose/ Sod Cl 1,000 ml @ 80 mls/hr [id number] IV Last administered on 07/16/16 10:54; Start 07/16/16 at 09:30; Stop 07/16/16 at 21:59; Status DC Fluconazole/ Sodium Chloride (Diflucan 200mg/ 100ml Premix) 100 ml @ 100 mls/ hr Q24H IV Last administered on 07/18/16 11:43; Start 07/16/16 at 11:00; Stop at 13:28; Status DC Info 1 each 1 each PRN DAILY PRN MC SEE COMMENTS Last administered on 12:41; Start 07/16/16 at 10:00; Stop 08/01/16 at 11:24; Status DC Sodium Chloride 220 meq/Sodium Acetate 90 meq/ Potassium Chloride 50 meq/ Potassium Acetate 15 meq/Potassium Phosphate 10 mmol/ Magnesium Sulfate 50 meq/ Calcium Gluconate 6 meq/ Multivitamins/ Minerals 10 ml/ Chromium/Copper/ Manganese/Seleni/ Zn 1 ml/Total Parenteral Nutrition/Amino Acids/Dextro... 1, 920 ml @ 80 mls/hr TPN CONT IV ; Start 07/16/16 at 22:00; Stop 07/16/16 at 22:00 ; Status DC Sodium Chloride/ Sodium Acetate/ Potassium Chloride/ Potassium Acetate/ Potassium Phosphate/ Magnesium Sulfate/ Calcium Gluconate/ Multivitamins/ Minerals/Chromium/ Copper/Manganese/ Seleni/Zn/Total Parenteral Nutrition/Amino Acids/Dextrose/ Fat Emulsion Intravenous (Sodium Chlori... 1,820 ml @ 75.833 mls/ hr TPN CONT IV Last administered on 07/16/16 21:03; Start 07/16/16 at 22: 00; Stop 07/17/16 at 21:59; Status DC Ondansetron HCl (Zofran) 4 mg PRN Q6HRS PRN IV NAUSEA/VOMITING Last administered on 07/21/16 08:48; Start 07/16/16 at 17:15; Stop 07/31/16 at 15:01; Status DC Diphenhydramine HCl (Benadryl) 25 mg PRN Q6HRS PRN PO ITCHING Last administered on 07/25/16 23:38; Start 07/16/16 at 17:45; Stop 07/31/16 at 15:01 ; Status DC Lidocaine (Xylocaine) 1 sang BID TP Last administered on 08/09/16 07:21; Start 07/17/16 at 09:00 Zinc Oxide 1 sang 1 sang BID TP Last administered on 08/09/16 07:21; Start at 09:30 Sodium Chloride/ Sodium Acetate/ Potassium Chloride/ Potassium Acetate/ Potassium Phosphate/ Magnesium Sulfate/ Calcium Gluconate/ Multivitamins/ Minerals/Chromium/ Copper/Manganese/ Seleni/Zn/Total Parenteral Nutrition/Amino Acids/Dextrose/ Fat Emulsion Intravenous (Sodium Chlori... 1,920 ml @ 80 mls/ hr TPN CONT IV Last administered on 07/17/16 22:13; Start 07/17/16 at 22:00; Stop 07/18/16 at 21:59; Status DC Furosemide 40 mg 40 mg 1X ONCE IVP Last administered on 07/18/16 11:43; Start 07/18/16 at 11:00; Stop 07/18/16 at 11:07; Status DC Sodium Chloride 220 meq/Sodium Acetate 90 meq/ Potassium Chloride 50 meq/ Potassium Acetate 15 meq/Potassium Phosphate 10 mmol/ Magnesium Sulfate 50 meq/ Calcium Gluconate 3 meq/ Multivitamins/ Minerals 10 ml/ Chromium/Copper/ Manganese/Seleni/ Zn 1 ml/Total Parenteral Nutrition/Amino Acids/Dextro... 1, 920 ml @ 80 mls/hr TPN CONT IV Last administered on 07/19/16 00:03; Start 07/18/16 at 22:00; Stop 07/19/16 at 21:59; Status DC Meropenem 1 gm/ Sodium Chloride 100 ml @ 200 mls/hr Q8HRS IV Last administered on 07/20/16 05:21; Start 07/18/16 at 14:00; Stop 07/20/16 at 11:25; Status DC Micafungin Sodium 100 mg/Dextrose 100 ml @ 100 mls/hr Q24H IV Last administered on 07/19/16 15:05; Start 07/18/16 at 14:00; Stop 07/20/16 at 11:25; Status DC Daptomycin/Sodium Chloride (Cubicin/Iv Sodium Chloride 0.9% 50ml) 50 ml @ 100 mls/hr Q24H IV Last administered on 07/19/16 16:56; Start 07/18/16 at 15:00; Stop 07/20/16 at 11:25; Status DC Alteplase, Recombinant (Cathflo) 2 mg 1X ONCE INT CAT Last administered on 07/19 06:24; Start 07/19/16 at 07:00; Stop 07/19/16 at 07:01; Status DC Gentamicin Sulfate 1 each 1 each PRN DAILY PRN MC SEE COMMENTS Last administered on 07/25/16 15:31; Start 07/19/16 at 12:15; Stop 07/25/16 at 16:14 ; Status DC Gentamicin Sulfate/Sodium Chloride (Iv Sodium Chloride 0.9% 100ml) 106.75 ml @ 106.75 mls/hr Q24H IV Last administered on 07/25/16 15:31; Start 07/19/16 at 13 :00; Stop 07/25/16 at 16:12; Status DC Gentamicin Sulfate 1 each 1 each 1X ONCE MC Last administered on 07/19/16 23: 00; Start 07/19/16 at 23:00; Stop 07/19/16 at 23:01; Status DC Sodium Chloride/ Sodium Acetate/ Potassium Chloride/ Potassium Acetate/ Potassium Phosphate/ Magnesium Sulfate/ Calcium Gluconate/ Multivitamins/ Minerals/Chromium/ Copper/Manganese/ Seleni/Zn/Total Parenteral Nutrition/Amino Acids/Dextrose/ Fat Emulsion Intravenous (Sodium Chlori... 1,920 ml @ 80 mls/ hr TPN CONT IV Last administered on 07/19/16 20:51; Start 07/19/16 at 22:00; Stop 07/20/16 at 21:59; Status DC Hyoscyamine (Anaspaz) 0.125 mg PRN Q6HRS PRN PO BLADDER SPASM; Start 07/20/16 at 09:00; Stop 07/31/16 at 15:01; Status DC Phenazopyridine HCl 200 mg 200 mg PRN TID PRN PO BLADDER SPASM Last administered on 07/21/16 20:14; Start 07/20/16 at 09:00; Stop 07/31/16 at 15:01; Status DC Linezolid 300 ml @ 300 mls/hr Q12HR IV Last administered on 07/25/16 09:02; Start 07/20/16 at 12:00; Stop 07/25/16 at 16:12; Status DC Sodium Chloride 220 meq/Sodium Acetate 90 meq/ Potassium Chloride 50 meq/ Potassium Acetate 15 meq/Potassium Phosphate 10 mmol/ Magnesium Sulfate 50 meq/ Calcium Gluconate 3 meq/ Multivitamins/ Minerals 10 ml/ Chromium/Copper/ Manganese/Seleni/ Zn 1 ml/Total Parenteral Nutrition/Amino Acids/Dextro... 1, 920 ml @ 80 mls/hr TPN CONT IV Last administered on 07/20/16 21:30; Start 07/20/16 at 22:00; Stop 07/21/16 at 21:59; Status DC Sodium Chloride/ Sodium Acetate/ Potassium Chloride/ Potassium Acetate/ Potassium Phosphate/ Magnesium Sulfate/ Multivitamins/ Minerals/Chromium/ Copper /Manganese/ Seleni/Zn/Total Parenteral Nutrition/Amino Acids/Dextrose/ Fat Emulsion Intravenous (Sodium Chloride/ Potass... 1,920 ml @ 80 mls/hr TPN CONT IV Last administered on 07/21/16 22:05; Start 07/21/16 at 22:00; Stop at 21:59; Status DC Alteplase, Recombinant 2 mg 2 mg PRN DAILY PRN INT CAT INFLAMMATION Last administered on 07/27/16 11:31; Start 07/21/16 at 15:00 Sodium Chloride 220 meq/Sodium Acetate 90 meq/ Potassium Chloride 50 meq/ Potassium Acetate 15 meq/Potassium Phosphate 10 mmol/ Magnesium Sulfate 50 meq/ Multivitamins/ Minerals 10 ml/ Chromium/Copper/ Manganese/Seleni/ Zn 1 ml/Total Parenteral Nutrition/Amino Acids/Dextrose/ Fat Emuls... 1,920 ml @ 80 mls/hr TPN CONT IV Last administered on 07/22/16 20:53; Start 07/22/16 at 22:00; Stop 07/23/16 at 21:59; Status DC Sodium Chloride/ Sodium Acetate/ Potassium Chloride/ Potassium Acetate/ Potassium Phosphate/ Magnesium Sulfate/ Multivitamins/ Minerals/Chromium/ Copper /Manganese/ Seleni/Zn/Total Parenteral Nutrition/Amino Acids/Dextrose/ Fat Emulsion Intravenous (Sodium Chloride/ Potass... 1,920 ml @ 80 mls/hr TPN CONT IV Last administered on 07/23/16 21:16; Start 07/23/16 at 22:00; Stop 07/24 at 21:59; Status DC Gentamicin Sulfate 1 each 1 each 1X ONCE MC ; Start 07/23/16 at 22:00; Stop 07/23 at 22:01; Status Cancel Sodium Chloride/ Sodium Acetate/ Potassium Chloride/ Potassium Acetate/ Potassium Phosphate/ Magnesium Sulfate/ Multivitamins/ Minerals/Chromium/ Copper /Manganese/ Seleni/Zn/Total Parenteral Nutrition/Amino Acids/Dextrose/ Fat Emulsion Intravenous (Sodium Chloride/ Potass... 1,920 ml @ 80 mls/hr TPN CONT IV Last administered on 07/24/16 21:15; Start 07/24/16 at 22:00; Stop 04/30 at 21:59; Status DC Gentamicin Sulfate 1 each 1X ONCE MC ; Start 07/25/16 at 12:30; Stop 07/25/16 at 12:31; Status Cancel Amlodipine Besylate 5 mg 5 mg DAILY PO Last administered on 07/27/16 11:12; Start 07/25/16 at 12:00; Stop 07/29/16 at 08:44; Status DC Sodium Chloride 220 meq/Sodium Acetate 90 meq/ Potassium Chloride 30 meq/ Potassium Acetate 15 meq/Potassium Phosphate 10 mmol/ Magnesium Sulfate 50 meq/ Multivitamins/ Minerals 10 ml/ Chromium/Copper/ Manganese/Seleni/ Zn 1 ml/Total Parenteral Nutrition/Amino Acids/Dextrose/ Fat Emuls... 1,920 ml @ 80 mls/hr TPN CONT IV Last administered on 07/25/16 22:25; Start 07/25/16 at 22:00; Stop 07/26/16 at 21:59; Status DC Sodium Chloride/ Sodium Acetate/ Potassium Chloride/ Potassium Acetate/ Potassium Phosphate/ Magnesium Sulfate/ Multivitamins/ Minerals/Chromium/ Copper /Manganese/ Seleni/Zn/Total Parenteral Nutrition/Amino Acids/Dextrose/ Fat Emulsion Intravenous (Sodium Chloride/ Potass... 1,920 ml @ 80 mls/hr TPN CONT IV Last administered on 07/26/16 23:16; Start 07/26/16 at 22:00; Stop at 21:59; Status DC Furosemide 20 mg 20 mg 1X ONCE IVP Last administered on 07/27/16 11:31; Start 07/27/16 at 09:00; Stop 07/27/16 at 09:01; Status DC Daptomycin 340 mg/ Sodium Chloride 50 ml @ 100 mls/hr Q24H IV Last administered on 07/29/16 15:05; Start 07/27/16 at 13:00; Stop 07/30/16 at 07:25 ; Status DC Piperacillin Sod/ Tazobactam Sod 3.375 gm/Sodium Chloride 50 ml @ 100 mls/hr Q6HRS IV Last administered on 07/30/16 05:30; Start 07/27/16 at 12:30; Stop at 07:25; Status DC Fluconazole/ Sodium Chloride 100 ml @ 100 mls/hr Q24H IV Last administered on 07/28/16 13:32; Start 07/27/16 at 13:00; Stop 07/29/16 at 00:53; Status DC Sodium Chloride 1,000 ml @ 1,000 mls/hr 1X ONCE IV Last administered on 12:34; Start 07/27/16 at 12:30; Stop 07/27/16 at 13:29; Status DC Sodium Chloride 220 meq/Sodium Acetate 90 meq/ Potassium Chloride 30 meq/ Potassium Acetate 15 meq/Potassium Phosphate 10 mmol/ Magnesium Sulfate 45 meq/ Multivitamins/ Minerals 10 ml/ Chromium/Copper/ Manganese/Seleni/ Zn 1 ml/Total Parenteral Nutrition/Amino Acids/Dextrose/ Fat Emuls... 1,920 ml @ 80 mls/hr TPN CONT IV Last administered on 07/27/16 22:38; Start 07/27/16 at 22:00; Stop 07/28/16 at 21:59; Status DC Sodium Chloride (Iv Sodium Chloride 0.9% 1000ml Bag) 1,000 ml @ 45 mls/hr [id number] IV Last administered on 07/28/16 03:24; Start 07/27/16 at 17:00; Stop 07/28/16 at 10:27; Status DC Acetaminophen 650 mg 650 mg PRN Q6HRS PRN CA fever Last administered on 03:57; Start 07/27/16 at 16:30; Stop 07/29/16 at 08:33; Status DC Sodium Chloride 1,000 ml @ 427.5 mls/ hr Q2H21M IV Last administered on 19:30; Start 07/27/16 at 19:30; Stop 07/27/16 at 23:30; Status DC Sodium Chloride 220 meq/Sodium Acetate 90 meq/ Potassium Chloride 30 meq/ Potassium Acetate 15 meq/Potassium Phosphate 10 mmol/ Magnesium Sulfate 45 meq/ Multivitamins/ Minerals 10 ml/ Chromium/Copper/ Manganese/Seleni/ Zn 1 ml/Total Parenteral Nutrition/Amino Acids/Dextrose/ Fat Emuls... 1,920 ml @ 80 mls/hr TPN CONT IV Last administered on 07/28/16 21:43; Start 07/28/16 at 22:00; Stop 07/29/16 at 21:59; Status DC Micafungin Sodium/ Dextrose (Mycamine) 100 ml @ 100 mls/hr Q24H IV Last administered on 08/09/16 01:20; Start 07/29/16 at 01:00 Lorazepam (Ativan) 0.05 mg PRN Q4HRS PRN IV ANXIETY / AGITATION; Start at 02:30; Stop 07/29/16 at 02:48; Status DC Lorazepam (Ativan) 0.5 mg PRN Q4HRS PRN IV ANXIETY / AGITATION Last administered on 08/09/16 02:31; Start 07/29/16 at 03:00 Acetaminophen (Tylenol) 650 mg PRN Q4HRS PRN CA MILD PAIN / TEMP; Start at 08:30 Ketorolac Tromethamine (Toradol) 30 mg PRN Q6HRS PRN IV PAIN/FEVER Last administered on 07/30/16 00:50; Start 07/29/16 at 08:30; Stop 07/30/16 at 13:01 ; Status DC Pantoprazole Sodium 40 mg 40 mg DAILYAC IVP Last administered on 08/09/16 07: 20; Start 07/29/16 at 09:00 Sodium Chloride 1,000 ml @ 45 mls/hr [id number] IV Last administered on 09:17; Start 07/29/16 at 08:45; Stop 07/31/16 at 15:01; Status DC Sodium Chloride/ Sodium Acetate/ Potassium Chloride/ Potassium Acetate/ Potassium Phosphate/ Magnesium Sulfate/ Multivitamins/ Minerals/Chromium/ Copper /Manganese/ Seleni/Zn/Total Parenteral Nutrition/Amino Acids/Dextrose/ Fat Emulsion Intravenous (Sodium Chloride/ Potass... 1,920 ml @ 80 mls/hr TPN CONT IV Last administered on 07/29/16 22:06; Start 07/29/16 at 22:00; Stop at 21:59; Status DC Lidocaine/Sodium Bicarbonate 20 ml 20 ml STK-MED ONCE IJ ; Start 07/29/16 at 13: 13; Stop 07/29/16 at 13:14; Status DC Heparin Sodium/ Sodium Chloride 500 ml @ As Directed STK-MED ONCE .ROUTE ; Start 07/29/16 at 13:13; Stop 07/29/16 at 13:14; Status DC Lidocaine/ Epinephrine (Xylocaine 1%-Epi 1:100,000) 20 ml STK-MED ONCE .ROUTE ; Start 07/29/16 at 13:22; Stop 07/29/16 at 13:23; Status DC Midazolam HCl (Versed) 5 mg STK-MED ONCE .ROUTE ; Start 07/29/16 at 13:32; Stop 07/29/16 at 13:33; Status DC Fentanyl Citrate (Fentanyl 5ml Vial) 250 mcg STK-MED ONCE .ROUTE ; Start at 13:32; Stop 07/29/16 at 13:33; Status DC Heparin Sodium/ Sodium Chloride 1,000 unit 1X ONCE IART Last administered on 13:45; Start 07/29/16 at 13:45; Stop 07/29/16 at 13:48; Status DC Midazolam HCl (Versed) 5 mg 1X ONCE IV Last administered on 07/29/16 13:45; Start 07/29/16 at 13:45; Stop 07/29/16 at 13:48; Status DC Fentanyl Citrate (Fentanyl 5ml Vial) 250 mcg 1X ONCE IV Last administered on 13:45; Start 07/29/16 at 13:45; Stop 07/29/16 at 13:48; Status DC Lidocaine/ Epinephrine 20 ml 20 ml 1X ONCE IJ Last administered on 07/29/16 13:45; Start 07/29/16 at 13:45; Stop 07/29/16 at 13:48; Status DC Sodium Chloride 220 meq/Sodium Acetate 90 meq/ Potassium Chloride 15 meq/ Potassium Acetate 30 meq/Potassium Phosphate 10 mmol/ Magnesium Sulfate 45 meq/ Multivitamins/ Minerals 10 ml/ Chromium/Copper/ Manganese/Seleni/ Zn 1 ml/Total Parenteral Nutrition/Amino Acids/Dextrose/ Fat Emuls... 1,920 ml @ 80 mls/hr TPN CONT IV ; Start 07/30/16 at 22:00; Stop 07/31/16 at 21:59; Status DC Norepinephrine Bitartrate 8 mg/ Sodium Chloride 258 ml @ 1.93 mls/hr 1X ONCE IV Last administered on 07/30/16 11:17; Start 07/30/16 at 11:15; Stop at 15:43; Status DC Norepinephrine Bitartrate/Sodium Chloride (Levophed Vial/ Iv Sodium Chloride 0.9 % 250ml) 258 ml @ 0 mls/hr CONT PRN IV SEE I/O RECORD Last administered on 08/02 19:54; Start 07/30/16 at 11:15; Stop 08/04/16 at 09:29; Status DC Furosemide 60 mg 60 mg 1X ONCE IVP Last administered on 07/30/16 11:14; Start 07/30/16 at 11:15; Stop 07/30/16 at 11:16; Status DC Sodium Chloride 500 ml @ 500 mls/hr Q1H IV Last administered on 07/30/16 17: 04; Start 07/30/16 at 14:30; Stop 07/30/16 at 15:29; Status DC Albumin Human 100 ml @ 100 mls/hr [id number] IV Last administered on 07/31/16 05: 37; Start 07/30/16 at 14:30; Stop 07/31/16 at 06:59; Status DC Furosemide/Sodium Chloride (Lasix Drip/Iv Sodium Chloride 0.9% 100ml) 100 ml @ 0 mls/hr CONT PRN IV SEE I/O RECORD Last administered on 07/31/16 03:17; Start 07/30/16 at 14:30; Stop 08/01/16 at 13:19; Status DC Ondansetron HCl (Zofran) 8 mg PRN Q8HRS PRN IV NAUSEA/VOMITING Last administered on 07/30/16 14:38; Start 07/30/16 at 14:30 Sodium Bicarbonate 50 meq 50 meq 1X ONCE IV Last administered on 07/30/16 14: 43; Start 07/30/16 at 14:30; Stop 07/30/16 at 14:31; Status DC Heparin Sodium/ Sodium Chloride 500 ml @ As Directed STK-MED ONCE .ROUTE ; Start 07/30/16 at 14:49; Stop 07/30/16 at 14:50; Status DC Lidocaine HCl 20 ml STK-MED ONCE .ROUTE ; Start 07/30/16 at 14:49; Stop at 14:50; Status DC Midazolam HCl (Versed) 2 mg STK-MED ONCE .ROUTE ; Start 07/30/16 at 15:19; Stop 07/30/16 at 15:20; Status DC Heparin Sodium/ Sodium Chloride 1,000 unit 1X ONCE IART Last administered on 15:44; Start 07/30/16 at 15:45; Stop 07/30/16 at 15:46; Status DC Midazolam HCl (Versed) 1.5 mg 1X ONCE IV Last administered on 07/30/16 15:44 ; Start 07/30/16 at 15:45; Stop 07/30/16 at 15:46; Status DC Lidocaine HCl 20 ml 1X ONCE IJ Last administered on 07/30/16 15:44; Start at 15:45; Stop 07/30/16 at 15:46; Status DC Heparin Sodium (Porcine) 39790 unit 10,000 unit STK-MED ONCE .ROUTE ; Start at 15:54; Stop 07/30/16 at 15:55; Status DC Fentanyl Citrate 30 ml @ 0 mls/hr CONT PRN PRN IV PROTOCOL Last administered on 08/08/16 10:21; Start 07/30/16 at 16:45; Stop 08/08/16 at 11:03; Status DC Sodium Bicarbonate/ Dextrose 1,150 ml @ 125 mls/hr 1X ONCE IV Last administered on 07/30/16 18:34; Start 07/30/16 at 17:30; Stop 07/31/16 at 02:41 ; Status DC Succinylcholine Chloride 200 mg 200 mg STK-MED ONCE .ROUTE ; Start 07/30/16 at 19:47; Stop 07/30/16 at 19:48; Status DC Propofol 100 ml @ As Directed STK-MED ONCE IV ; Start 07/30/16 at 19:48; Stop 07/30/16 at 19:49; Status DC Midazolam HCl (Versed 100mg/ 100ml Premix) 100 ml @ 0 mls/hr CONT PRN IV SEE I/ O RECORD Last administered on 08/03/16 12:18; Start 07/30/16 at 21:15 Sodium Bicarbonate 50 meq 50 meq 1X ONCE IV Last administered on 07/30/16 22: 15; Start 07/30/16 at 22:30; Stop 07/30/16 at 22:31; Status DC Dopamine HCl/ Dextrose 250 ml @ 11.513 mls/ hr CONT PRN IV SEE I/O RECORD Last administered on 07/31/16 20:16; Start 07/30/16 at 22:15; Stop 08/04/16 at 09:29; Status DC Sodium Bicarbonate/ Dextrose 1,150 ml @ 125 mls/hr Q9H12M IV Last administered on 08/01/16 09:30; Start 07/31/16 at 03:00; Stop 08/01/16 at 13:19 ; Status DC Propofol (Diprivan) 1,000 mg STK-MED ONCE IV ; Start 07/30/16 at 20:00; Stop at 08:16; Status DC Succinylcholine Chloride 200 mg 200 mg STK-MED ONCE .ROUTE ; Start 07/30/16 at 20:00; Stop 07/31/16 at 08:16; Status DC Tigecycline 50 mg/ Sodium Chloride 50 ml @ 100 mls/hr Q12HR IV Last administered on 08/04/16 09:01; Start 07/31/16 at 21:00; Stop 08/04/16 at 10:00 ; Status DC Tigecycline/ Sodium Chloride (Tygacil/Iv Sodium Chloride 0.9% 100ml) 100 ml @ 200 mls/hr 1X ONCE IV Last administered on 07/31/16 09:22; Start 07/31/16 at 09:00; Stop 07/31/16 at 09:29; Status DC Darbepoetin Sarbjit 60 mcg 60 mcg WEEKLYHS SQ Last administered on 08/07/16 21:41 ; Start 07/31/16 at 21:00 Albumin Human 100 ml @ 100 mls/hr 1X ONCE IV Last administered on 07/31/16 11:40; Start 07/31/16 at 11:15; Stop 07/31/16 at 12:14; Status DC Albumin Human 100 ml @ 100 mls/hr 1X ONCE IV Last administered on 07/31/16 12:03; Start 07/31/16 at 11:15; Stop 07/31/16 at 12:14; Status DC Sodium Chloride (Iv Sodium Chloride 0.9% 1000ml Bag) 1,000 ml @ 1,000 mls/hr Q1H PRN IV hypotension; Start 07/31/16 at 11:33; Stop 07/31/16 at 17:32; Status DC Info (PHARMACY MONITORING -- do not chart) 1 each PRN DAILY PRN MC SEE COMMENTS ; Start 07/31/16 at 11:45 Info (PHARMACY MONITORING -- do not chart) 1 each PRN DAILY PRN MC SEE COMMENTS ; Start 07/31/16 at 11:45; Status UNV Hydrocortisone Sodium Succinate (Solu-Cortef) 100 mg Q8HRS IV Last administered on 08/04/16 06:16; Start 08/01/16 at 07:00; Stop 08/04/16 at 09:29 ; Status DC Albuterol/ Ipratropium (Duoneb) 3 ml RTQID NEB Last administered on 08/09/16 08:44; Start 08/01/16 at 08:00 Albuterol/ Ipratropium 3 ml 3 ml STK-MED ONCE .ROUTE Last administered on 07:34; Start 08/01/16 at 06:59; Stop 08/01/16 at 07:00; Status DC Sodium Chloride 1,000 ml @ 1,000 mls/hr Q1H PRN IV hypotension; Start 08/01/16 at 06:57; Stop 08/01/16 at 12:56; Status DC Albumin Human (Albuminar) 200 ml @ 200 mls/hr 1X PRN PRN IV Hypotension; Start 08/01/16 at 07:00; Stop 08/01/16 at 12:59; Status DC Info (PHARMACY MONITORING -- do not chart) 1 each PRN DAILY PRN MC SEE COMMENTS ; Start 08/01/16 at 07:00; Status UNV Info 1 each 1 each PRN DAILY PRN MC SEE COMMENTS Last administered on 13:05; Start 08/01/16 at 13:30 Sodium Chloride 220 meq/Sodium Acetate 90 meq/ Potassium Chloride 15 meq/ Potassium Acetate 30 meq/Potassium Phosphate 10 mmol/ Magnesium Sulfate 45 meq/ Multivitamins/ Minerals 10 ml/ Chromium/Copper/ Manganese/Seleni/ Zn 1 ml/Total Parenteral Nutrition/Amino Acids/Dextrose/ Fat Emuls... 1,920 ml @ 80 mls/hr TPN CONT IV Last administered on 08/01/16 21:56; Start 08/01/16 at 22:00; Stop 08/02/16 at 21:59; Status DC Potassium Chloride (KCl Premix 20meq) 50 ml @ 50 mls/hr Q1H IV Last administered on 08/01/16 19:05; Start 08/01/16 at 17:00; Stop 08/01/16 at 18:59 ; Status DC Insulin Aspart 0-6 UNITS TIDWMEALS SQ Last administered on 08/02/16 11:33; Start 08/02/16 at 12:00; Stop 08/02/16 at 14:34; Status DC Sodium Chloride 220 meq/Sodium Acetate 90 meq/ Potassium Chloride 15 meq/ Potassium Acetate 30 meq/Magnesium Sulfate 45 meq/ Multivitamins/ Minerals 10 ml / Chromium/Copper/ Manganese/Seleni/ Zn 1 ml/Total Parenteral Nutrition/Amino Acids/Dextrose/ Fat Emulsion Intravenous 1,920 ml @ 80 mls/hr TPN CONT IV Last administered on 08/02/16 21:34; Start 08/02/16 at 22:00; Stop 08/03/16 at 21:59; Status DC Levofloxacin/ Dextrose 150 ml @ 100 mls/hr 1X ONCE IV Last administered on 14:35; Start 08/02/16 at 14:00; Stop 08/02/16 at 15:29; Status DC Daptomycin/Sodium Chloride (Cubicin/Iv Sodium Chloride 0.9% 50ml) 50 ml @ 100 mls/hr ONCE ONCE IV Last administered on 08/02/16 14:34; Start 08/02/16 at 15 :00; Stop 08/02/16 at 15:29; Status DC Insulin Aspart 0-6 UNITS Q6HRS SQ Last administered on 08/07/16 18:14; Start 08/02/16 at 18:00 Sodium Chloride (Iv Sodium Chloride 0.9% 1000ml Bag) 1,000 ml @ 1,000 mls/hr Q1H PRN IV hypotension; Start 08/03/16 at 07:26; Stop 08/03/16 at 13:25; Status DC Diphenhydramine HCl (Benadryl) 25 mg 1X PRN PRN IV ITCHING; Start 08/03/16 at 07:30; Stop 08/04/16 at 07:29; Status DC Diphenhydramine HCl (Benadryl) 25 mg 1X PRN PRN IV ITCHING; Start 08/03/16 at 07:30; Stop 08/04/16 at 07:29; Status DC Sodium Chloride (Normal Saline Flush) 10 ml 1X PRN PRN IV AP catheter pack; Start 08/03/16 at 07:30; Stop 08/04/16 at 07:29; Status DC Sodium Chloride 10 ml 10 ml 1X PRN PRN IV NURSE PRACTITIONER HOME ASSESSMENTS catheter pack; Start 08/03/16 at 07:30; Stop 08/04/16 at 07:29; Status DC Sodium Chloride (Iv Sodium Chloride 0.9% 1000ml Bag) 1,000 ml @ 400 mls/hr Q2H30M PRN IV PATENCY; Start 08/03/16 at 07:26; Stop 08/03/16 at 19:25; Status DC Info 1 each 1 each PRN DAILY PRN MC SEE COMMENTS; Start 08/03/16 at 07:30; Status UNV Albumin Human 200 ml @ 200 mls/hr Q2HR IV Last administered on 08/03/16 10:00 ; Start 08/03/16 at 08:44; Stop 08/03/16 at 10:59; Status DC Sodium Chloride 160 meq/Sodium Acetate 60 meq/ Potassium Chloride 15 meq/ Potassium Acetate 30 meq/Magnesium Sulfate 25 meq/ Multivitamins/ Minerals 10 ml / Chromium/Copper/ Manganese/Seleni/ Zn 1 ml/Total Parenteral Nutrition/Amino Acids/Dextrose/ Fat Emulsion Intravenous 1,500 ml @ 62.5 mls/hr TPN CONT IV Last administered on 08/03/16 22:52; Start 08/03/16 at 22:00; Stop 08/04/16 at 21:59; Status DC Levofloxacin/ Dextrose 100 ml @ 100 mls/hr 1X ONCE IV Last administered on 10:50; Start 08/04/16 at 07:30; Stop 08/04/16 at 08:30; Status DC Daptomycin 450 mg/ Sodium Chloride 50 ml @ 100 mls/hr ONCE ONCE IV Last administered on 08/04/16 09:55; Start 08/04/16 at 08:00; Stop 08/04/16 at 08:30 ; Status DC Tigecycline/ Sodium Chloride (Tygacil/Iv Sodium Chloride 0.9% 50ml) 50 ml @ 100 mls/hr Q12HR IV Last administered on 08/09/16 07:20; Start 08/04/16 at 21: 00; Stop 08/09/16 at 09:42; Status DC Hydrocortisone Sodium Succinate 50 mg 50 mg Q8HRS IV Last administered on 05:39; Start 08/04/16 at 14:00; Stop 08/05/16 at 11:12; Status DC Furosemide 100 mg/ Sodium Chloride 100 ml @ 0 mls/hr CONT PRN IV SEE I/O RECORD Last administered on 08/09/16 06:43; Start 08/04/16 at 11:30 Sodium Chloride 160 meq/Sodium Acetate 60 meq/ Potassium Chloride 15 meq/ Potassium Acetate 30 meq/Magnesium Sulfate 25 meq/ Multivitamins/ Minerals 10 ml / Chromium/Copper/ Manganese/Seleni/ Zn 1 ml/Total Parenteral Nutrition/Amino Acids/Dextrose/ Fat Emulsion Intravenous 1,500 ml @ 62.5 mls/hr TPN CONT IV Last administered on 08/04/16 21:45; Start 08/04/16 at 22:00; Stop 08/06/16 at 08:48; Status DC Sodium Chloride 1,000 ml @ 1,000 mls/hr Q1H PRN IV hypotension; Start 08/04/16 at 12:00; Stop 08/04/16 at 17:59; Status DC Sodium Chloride (Iv Sodium Chloride 0.9% 1000ml Bag) 1,000 ml @ 400 mls/hr Q2H30M PRN IV PATENCY; Start 08/04/16 at 12:00; Stop 08/04/16 at 23:59; Status DC Info 1 each 1 each PRN DAILY PRN MC SEE COMMENTS; Start 08/04/16 at 16:30; Status UNV Levofloxacin/ Dextrose 100 ml @ 100 mls/hr 1X ONCE IV Last administered on 14:27; Start 08/05/16 at 14:00; Stop 08/05/16 at 14:59; Status DC Daptomycin/Sodium Chloride (Cubicin/Iv Sodium Chloride 0.9% 50ml) 50 ml @ 100 mls/hr 1X ONCE IV Last administered on 08/05/16 14:27; Start 08/05/16 at 14: 00; Stop 08/05/16 at 14:29; Status DC Heparin Sodium (Porcine) 10,000 unit STK-MED ONCE .ROUTE ; Start 08/05/16 at 09: 35; Stop 08/05/16 at 09:36; Status DC Lidocaine/Sodium Bicarbonate 20 ml 20 ml STK-MED ONCE IJ ; Start 08/05/16 at 09: 36; Stop 08/05/16 at 09:37; Status DC Heparin Sodium/ Sodium Chloride 500 ml @ As Directed STK-MED ONCE .ROUTE ; Start 08/05/16 at 09:36; Stop 08/05/16 at 09:37; Status DC Lidocaine/Sodium Bicarbonate (Buffered Lidocaine 1%) 2 ml 1X ONCE IJ Last administered on 08/05/16 10:04; Start 08/05/16 at 10:00; Stop 08/05/16 at 10:02 ; Status DC Heparin Sodium/ Sodium Chloride 60 unit 1X ONCE IV Last administered on 10:04; Start 08/05/16 at 10:00; Stop 08/05/16 at 10:02; Status DC Heparin Sodium (Porcine) 2,800 unit 1X ONCE INT CAT Last administered on 10:04; Start 08/05/16 at 10:00; Stop 08/05/16 at 10:02; Status DC Info (PHARMACY MONITORING -- do not chart) 1 each PRN DAILY PRN MC SEE COMMENTS ; Start 08/05/16 at 10:30; Stop 08/05/16 at 10:30; Status DC Info (PHARMACY MONITORING -- do not chart) 1 each PRN DAILY PRN MC SEE COMMENTS ; Start 08/05/16 at 10:30; Stop 08/05/16 at 10:30; Status DC Hydrocortisone Sodium Succinate 50 mg 50 mg BID IV Last administered on 07:49; Start 08/05/16 at 21:00; Stop 08/07/16 at 10:23; Status DC Sodium Chloride 160 meq/Sodium Acetate 60 meq/ Potassium Chloride 15 meq/ Potassium Acetate 30 meq/Magnesium Sulfate 25 meq/ Multivitamins/ Minerals 10 ml / Chromium/Copper/ Manganese/Seleni/ Zn 1 ml/Total Parenteral Nutrition/Amino Acids/Dextrose/ Fat Emulsion Intravenous 1,500 ml @ 62.5 mls/hr TPN CONT IV Last administered on 08/05/16 22:04; Start 08/05/16 at 22:00; Stop 08/06/16 at 21:59; Status DC Daptomycin 500 mg/ Sodium Chloride 50 ml @ 100 mls/hr Q24H IV Last administered on 08/08/16 13:27; Start 08/06/16 at 14:00 Sodium Chloride (Iv Sodium Chloride 0.9% 1000ml Bag) 1,000 ml @ 1,000 mls/hr Q1H PRN IV hypotension; Start 08/06/16 at 08:21; Stop 08/06/16 at 14:20; Status DC Diphenhydramine HCl (Benadryl) 25 mg 1X PRN PRN IV ITCHING; Start 08/06/16 at 08:30; Stop 08/07/16 at 08:29; Status DC Diphenhydramine HCl (Benadryl) 25 mg 1X PRN PRN IV ITCHING; Start 08/06/16 at 08:30; Stop 08/07/16 at 08:29; Status DC Sodium Chloride (Normal Saline Flush) 10 ml 1X PRN PRN IV AP catheter pack; Start 08/06/16 at 08:30; Stop 08/07/16 at 08:29; Status DC Sodium Chloride 10 ml 10 ml 1X PRN PRN IV NURSE PRACTITIONER HOME ASSESSMENTS catheter pack; Start 08/06/16 at 08:30; Stop 08/07/16 at 08:29; Status DC Sodium Chloride (Iv Sodium Chloride 0.9% 1000ml Bag) 1,000 ml @ 400 mls/hr Q2H30M PRN IV PATENCY; Start 08/06/16 at 08:21; Stop 08/06/16 at 20:20; Status DC Info 1 each 1 each PRN DAILY PRN MC SEE COMMENTS; Start 08/06/16 at 08:30; Status UNV Albumin Human 200 ml @ 200 mls/hr 1X STAT IV Last administered on 08/06/16 10:09; Start 08/06/16 at 09:52; Stop 08/06/16 at 10:51; Status DC Sodium Chloride/ Sodium Acetate/ Potassium Chloride/ Potassium Acetate/ Magnesium Sulfate/ Multivitamins/ Minerals/Chromium/ Copper/Manganese/ Seleni/Zn /Total Parenteral Nutrition/Amino Acids/Dextrose/ Fat Emulsion Intravenous ( Sodium Chloride/ Infuvite Adult/ Multitrace-5 Conc/ Tpn - Tpn Flu... 1,500 ml @ 62.5 mls/hr TPN CONT IV Last administered on 08/06/16 21:57; Start at 22:00; Stop 08/07/16 at 21:59; Status DC Darbepoetin Sarbjit 60 mcg 60 mcg WEEKLYHS SQ ; Start 08/07/16 at 21:00; Status UNV Potassium Chloride (KCl Premix 20meq) 50 ml @ 50 mls/hr Q1H IV Last administered on 08/07/16 10:46; Start 08/07/16 at 08:00; Stop 08/07/16 at 09:59 ; Status DC Hydrocortisone Sodium Succinate 25 mg 25 mg BID IV ; Start 08/07/16 at 21:00; Stop 08/07/16 at 21:00; Status DC Sodium Chloride (Iv Sodium Chloride 0.9% 1000ml Bag) 1,000 ml @ 1,000 mls/hr Q1H PRN IV hypotension; Start 08/07/16 at 12:08; Stop 08/07/16 at 18:07; Status DC Diphenhydramine HCl (Benadryl) 25 mg 1X PRN PRN IV ITCHING; Start 08/07/16 at 12:15; Stop 08/08/16 at 12:14; Status DC Diphenhydramine HCl (Benadryl) 25 mg 1X PRN PRN IV ITCHING; Start 08/07/16 at 12:15; Stop 08/08/16 at 12:14; Status DC Sodium Chloride (Normal Saline Flush) 10 ml 1X PRN PRN IV AP catheter pack; Start 08/07/16 at 12:15; Stop 08/08/16 at 12:14; Status DC Sodium Chloride (Normal Saline Flush) 10 ml 1X PRN PRN IV NURSE PRACTITIONER HOME ASSESSMENTS catheter pack; Start 08/07/16 at 12:15; Stop 08/08/16 at 12:14; Status DC Info (PHARMACY MONITORING -- do not chart) 1 each PRN DAILY PRN MC SEE COMMENTS ; Start 08/07/16 at 12:15; Status UNV Info 1 each 1 each PRN DAILY PRN MC SEE COMMENTS; Start 08/07/16 at 12:15; Status UNV Sodium Chloride 160 meq/Sodium Acetate 60 meq/ Potassium Chloride 55 meq/ Potassium Acetate 30 meq/Magnesium Sulfate 25 meq/ Multivitamins/ Minerals 10 ml / Chromium/Copper/ Manganese/Seleni/ Zn 1 ml/Total Parenteral Nutrition/Amino Acids/Dextrose/ Fat Emulsion Intravenous 1,500 ml @ 62.5 mls/hr TPN CONT IV Last administered on 08/07/16 21:41; Start 08/07/16 at 22:00; Stop 08/08/16 at 21:59; Status DC Potassium Chloride (KCl Premix 20meq) 50 ml @ 50 mls/hr 1X ONCE IV Last administered on 08/08/16 09:04; Start 08/08/16 at 10:00; Stop 08/08/16 at 10:59 ; Status DC Fentanyl Citrate 25 mcg 25 mcg PRN Q4HRS PRN IV PAIN Last administered on 09:19; Start 08/08/16 at 11:00 Potassium Chloride 50 ml @ 50 mls/hr 1X ONCE IV Last administered on 15:33; Start 08/08/16 at 11:15; Stop 08/08/16 at 12:14; Status DC Sodium Chloride 140 meq/Sodium Acetate 60 meq/ Potassium Chloride 70 meq/ Potassium Acetate 30 meq/Magnesium Sulfate 25 meq/ Multivitamins/ Minerals 10 ml / Chromium/Copper/ Manganese/Seleni/ Zn 1 ml/Total Parenteral Nutrition/Amino Acids/Dextrose/ Fat Emulsion Intravenous 1,500 ml @ 62.5 mls/hr TPN CONT IV Last administered on 08/08/16 21:42; Start 08/08/16 at 22:00 Tigecycline/ Sodium Chloride (Tygacil/Iv Sodium Chloride 0.9% 50ml) 50 ml @ 100 mls/hr Q12HR IV ; Start 08/09/16 at 09:42; Stop 08/09/16 at 10:03; Status DC Active Scripts Active Dilaudid (Hydromorphone Hcl) 4 Mg Tablet 4 Mg PO Q6HRS Phenazopyridine Hcl 200 Mg Tablet 200 Mg PO PRN TID PRN FENTANYL 50mcg/hr (Fentanyl) 1 Each Patch.td72 1 Patch TD Q3DAYS Anaspaz (Hyoscyamine Sulfate) 0.125 Mg Tab.rapdis 0.125 Mg PO Q6HRS PRN Cefpodoxime Proxetil 200 Mg Tablet 200 Mg PO BID Sertraline Hcl 50 Mg Tablet 100 Mg PO DAILY 30 Days Protonix (Pantoprazole Sodium) 40 Mg Tablet.dr 1 Tab PO DAILY Zinc Oxide 56.7 Gm Oint...g. 1 Sang TP BID Lidocaine 35.44 Gm Oint...g. 1 Sang TP BID Ondansetron Odt (Ondansetron) 4 Mg Tab.rapdis 8 Mg PO PRN Q8HRS PRN Gas-X (Simethicone) 80 Mg Tab.chew 80 Mg PO PRN QID PRN Reported Lorazepam 0.5 Mg Tablet 0.5 Mg PO PRN BID PRN Vitals/I & O Vital Sign - Last 24 Hours 08/08/16 08/08/16 08/08/16 08/08/16 11:48 12:00 12:00 12:05 Temp 97.6 97.6 Pulse 102 Resp 14 14 B/P 127/93 Pulse Ox 100 100 100 O2 Delivery Ventilator Ventilator Mechanical Ventilator Ventilator 08/08/16 08/08/16 08/08/16 08/08/16 13:00 14:00 14:00 14:11 Pulse 98 95 88 Resp 14 15 15 B/P 118/74 123/78 124/78 Pulse Ox 100 100 100 100 O2 Delivery Ventilator Ventilator Ventilator Ventilator 08/08/16 08/08/16 08/08/16 08/08/16 14:26 14:37 14:39 14:54 Pulse 92 86 86 88 Resp 14 14 14 14 B/P 129/75 117/89 117/89 138/72 Pulse Ox 100 100 100 100 O2 Delivery Ventilator Ventilator Ventilator Ventilator 08/08/16 08/08/16 08/08/16 08/08/16 14:57 15:02 16:00 16:00 Pulse 87 Resp 14 14 B/P 133/72 Pulse Ox 100 100 100 O2 Delivery Ventilator Ventilator Mechanical Ventilator Ventilator 08/08/16 08/08/16 08/08/16 08/08/16 16:00 17:00 18:00 18:03 Temp 97.9 97.9 Pulse 76 74 74 Resp 14 14 14 B/P 119/67 125/79 143/73 Pulse Ox 100 100 100 100 O2 Delivery Ventilator Ventilator Ventilator Ventilator 08/08/16 08/08/16 08/08/16 08/08/16 18:37 19:00 20:00 20:00 Temp 97.3 97.3 Pulse 84 79 Resp 14 15 15 B/P 143/73 142/78 Pulse Ox 100 100 100 O2 Delivery Ventilator Ventilator Mechanical Ventilator Ventilator 08/08/16 08/08/16 08/08/16 08/08/16 20:12 21:00 21:43 22:00 Pulse 69 86 Resp 22 16 17 B/P 160/70 140/76 Pulse Ox 100 100 100 100 O2 Delivery Ventilator Ventilator Ventilator 08/08/16 08/08/16 08/08/16 08/09/16 22:41 22:55 23:00 00:00 Pulse 74 Resp 15 14 B/P 144/77 Pulse Ox 100 100 100 O2 Delivery Ventilator Ventilator Ventilator Mechanical Ventilator 08/09/16 08/09/16 08/09/16 08/09/16 00:00 01:00 01:34 02:00 Temp 96.6 96.6 Pulse 74 90 88 Resp 18 18 13 B/P 148/82 134/70 145/83 Pulse Ox 100 100 99 100 O2 Delivery Ventilator Ventilator Ventilator Ventilator 08/09/16 08/09/16 08/09/16 08/09/16 02:31 03:00 03:42 04:00 Temp 97.3 97.3 Pulse 85 97 Resp 14 13 14 B/P 119/78 150/77 Pulse Ox 100 100 99 100 O2 Delivery Ventilator Ventilator Ventilator 08/09/16 08/09/16 08/09/16 08/09/16 04:00 05:00 05:00 06:00 Pulse 100 102 Resp 14 16 B/P 105/74 128/78 Pulse Ox 99 99 100 O2 Delivery Mechanical Ventilator Ventilator Ventilator Ventilator 08/09/16 08/09/16 08/09/16 08/09/16 06:39 07:00 07:09 08:00 Temp 97.9 97.9 Pulse 105 98 Resp 14 14 14 16 B/P 93/61 123/79 Pulse Ox 100 100 100 100 O2 Delivery Ventilator Ventilator Ventilator Ventilator 08/09/16 08/09/16 08/09/16 08/09/16 08:00 08:40 08:45 09:00 Pulse 108 Resp 17 B/P 131/86 Pulse Ox 100 100 O2 Delivery Mechanical Ventilator Ventilator Ventilator Ventilator 08/09/16 08/09/16 08/09/16 09:19 09:49 10:00 Pulse 106 Resp 19 14 16 B/P 126/73 Pulse Ox 100 100 100 O2 Delivery Ventilator Ventilator Ventilator Intake and Output 08/08/16 08/08/16 08/09/16 15:00 23:00 07:00 Intake Total 27 ml 745 ml 810 ml Output Total 1990 ml 1895 ml 905 ml Balance -1963 ml -1150 ml -95 ml ABHI WILL MD Aug 09, 2016 11:11
--- NOTE | 2016-08-09 11:36 | PDOC ---
PROGRESS NOTES Subjective Subjective good urine output with iv lasix drip but serum sodium 151. ventilator weaning progressing well. lab reviewed. Objective Objective Vital Signs Date Time Temp Pulse Resp B/P Pulse Ox O2 Delivery O2 Flow Rate FiO2 08/09/16 11:00 110 20 154/78 100 Ventilator 08/09/16 07:00 97.9 97.9 08/08/16 10:21 50.0 Intake and Output 08/09/16 07:00 Intake Total 1582 ml Output Total 4790 ml Balance -3208 ml IV Total 772 ml Other 810 ml Output Urine Total 1965 ml Drainage Total 2825 ml Physical Exam Abdomen: Soft Heart: Regular rate, Normal S1, Normal S2 Extremities: Other (1 to 2 plus edema upper extremities) General: Alert HEENT: Atraumatic Lungs: Other (clear anteriorly) Neuro: Other (sedated) Psych/Mental Status: Other (sedated) Skin: No rashes Assessment Assessment Problems Medical Problems::ana glabrata fungemia . . off pressors acute hypoxic respiratory failure. intubated on ventilator metabolic encephalopathy improved acute kidney injury due to ATN from sepsis. .improved bilateral lung infiltrates resolved disseminated intravascular coagulation thrombocytopenia due to platelet antibody and sepsis. improved picc associated fungemia with sepsis . picc removed 4. Enterocutaneous fistula. 5. Enterovesical fistula. 6. Anemia of chronic disease. 7. Moderately severe protein calorie malnutrition. elevated bilirubin. suspect cholestasis hypokalemia resolved hypernatremia (1) Abdominal pain Status: Acute (2) Enterocutaneous fistula Status: Acute (3) Sepsis Status: Acute (4) Urinary tract infection Status: Acute (5) UTI (urinary tract infection) Status: Acute Plan Plan of Care d/c iv lasix drip d/c TPN as has high amount of sodium in it hypotonic iv fluids ventilator weaning iv daptomycin and micafungin Comment Review of Relevant I have reviewed the following items lucila (where applicable) has been applied. Labs Laboratory Tests Test 08/07/16 12:37 08/07/16 18:08 08/08/16 00:06 08/08/16 05:00 Glucose (Fingerstick) 154mg/dL (70-99) 169mg/dL (70-99) 158mg/dL (70-99) White Blood Count 10.2x10^3/uL (4.0-11.0) Red Blood Count 3.32x10^6/uL (3.50-5.40) Hemoglobin 8.5g/dL (12.0-15.5) Hematocrit 25.8% (36.0-47.0) Mean Corpuscular Volume 78fL (79-100) Mean Corpuscular Hemoglobin 26pg (25-35) Mean Corpuscular Hemoglobin Concent 33g/dL (31-37) Red Cell Distribution Width 20.6% (11.5-14.5) Platelet Count 60x10^3/uL (140-400) Neutrophils (%) (Auto) 71% (31-73) Lymphocytes (%) (Auto) 19% (24-48) Monocytes (%) (Auto) 10% (0-9) Eosinophils (%) (Auto) 0% (0-3) Basophils (%) (Auto) 0% (0-3) Neutrophils # (Auto) 7.3x10^3uL (1.8-7.7) Lymphocytes # (Auto) 1.9x10^3/uL (1.0-4.8) Monocytes # (Auto) 1.0x10^3/uL (0.0-1.1) Eosinophils # (Auto) 0.0x10^3/uL (0.0-0.7) Basophils # (Auto) 0.0x10^3/uL (0.0-0.2) Fibrinogen 102mg/dL (200-440) Sodium Level 146mmol/L (136-145) Potassium Level 2.7mmol/L (3.5-5.1) Chloride Level 106mmol/L (98-107) Carbon Dioxide Level 31mmol/L (21-32) Anion Gap 9 (6-14) Blood Urea Nitrogen 55mg/dL (7-20) Creatinine 0.9mg/dL (0.6-1.0) Estimated GFR (Cockcroft-Gault) 77.0 BUN/Creatinine Ratio 61 (6-20) Glucose Level 112mg/dL (70-99) Lactic Acid Level 1.3mmol/L (0.4-2.0) Calcium Level 9.0mg/dL (8.5-10.1) Phosphorus Level 3.8mg/dL (2.6-4.7) Magnesium Level 2.0mg/dL (1.8-2.4) Total Bilirubin 5.5mg/dL (0.2-1.0) Aspartate Amino Transf (AST/SGOT) 31U/L (15-37) Alanine Aminotransferase (ALT/SGPT) 47U/L (14-59) Alkaline Phosphatase 178U/L (46-116) Total Protein 6.5g/dL (6.4-8.2) Albumin 3.0g/dL (3.4-5.0) Albumin/Globulin Ratio 0.9 (1.0-1.7) Test 08/08/16 05:28 08/08/16 09:50 08/08/16 11:40 08/08/16 13:15 Glucose (Fingerstick) 109mg/dL (70-99) 134mg/dL (70-99) O2 Saturation 99% (92-99) Arterial Blood pH 7.51 (7.35-7.45) Arterial Blood pCO2 at Patient Temp 35mmHg (35-46) Arterial Blood pO2 at Patient Temp 185mmHg (65-108) Arterial Blood HCO3 28mmol/L (21-28) Arterial Blood Base Excess 4mmol/L (-3-3) FiO2 35 Potassium Level 3.2mmol/L (3.5-5.1) Test 08/08/16 18:42 08/09/16 00:18 08/09/16 05:35 08/09/16 05:42 Glucose (Fingerstick) 126mg/dL (70-99) 137mg/dL (70-99) 113mg/dL (70-99) White Blood Count 9.2x10^3/uL (4.0-11.0) Red Blood Count 3.31x10^6/uL (3.50-5.40) Hemoglobin 8.5g/dL (12.0-15.5) Hematocrit 27.1% (36.0-47.0) Mean Corpuscular Volume 82fL (79-100) Mean Corpuscular Hemoglobin 26pg (25-35) Mean Corpuscular Hemoglobin Concent 31g/dL (31-37) Red Cell Distribution Width 21.1% (11.5-14.5) Platelet Count 68x10^3/uL (140-400) Neutrophils (%) (Auto) 72% (31-73) Lymphocytes (%) (Auto) 17% (24-48) Monocytes (%) (Auto) 7% (0-9) Eosinophils (%) (Auto) 3% (0-3) Basophils (%) (Auto) 1% (0-3) Neutrophils # (Auto) 6.5x10^3uL (1.8-7.7) Lymphocytes # (Auto) 1.6x10^3/uL (1.0-4.8) Monocytes # (Auto) 0.7x10^3/uL (0.0-1.1) Eosinophils # (Auto) 0.2x10^3/uL (0.0-0.7) Basophils # (Auto) 0.1x10^3/uL (0.0-0.2) Platelet Estimate Decreased (ADEQUATE) Giant Platelets Present Hypochromasia Present Anisocytosis Mod Sodium Level 151mmol/L (136-145) Potassium Level 3.7mmol/L (3.5-5.1) Chloride Level 110mmol/L (98-107) Carbon Dioxide Level 36mmol/L (21-32) Anion Gap 5 (6-14) Blood Urea Nitrogen 76mg/dL (7-20) Creatinine 1.1mg/dL (0.6-1.0) Estimated GFR (Cockcroft-Gault) 61.1 Glucose Level 110mg/dL (70-99) Lactic Acid Level 0.9mmol/L (0.4-2.0) Calcium Level 9.0mg/dL (8.5-10.1) Magnesium Level 2.4mg/dL (1.8-2.4) Vancomycin Level Trough < 0.8mcg/mL (10.0-20.0) Vancomycin Last Dose Date 08/08/16 Vancomycin Last Dose Time 1600 Test 08/09/16 11:04 Glucose (Fingerstick) 142mg/dL (70-99) Laboratory Tests Test 08/08/16 11:40 08/08/16 13:15 08/08/16 18:42 08/09/16 00:18 Glucose (Fingerstick) 134mg/dL (70-99) 126mg/dL (70-99) 137mg/dL (70-99) Potassium Level 3.2mmol/L (3.5-5.1) Test 08/09/16 05:35 08/09/16 05:42 08/09/16 11:04 White Blood Count 9.2x10^3/uL (4.0-11.0) Red Blood Count 3.31x10^6/uL (3.50-5.40) Hemoglobin 8.5g/dL (12.0-15.5) Hematocrit 27.1% (36.0-47.0) Mean Corpuscular Volume 82fL (79-100) Mean Corpuscular Hemoglobin 26pg (25-35) Mean Corpuscular Hemoglobin Concent 31g/dL (31-37) Red Cell Distribution Width 21.1% (11.5-14.5) Platelet Count 68x10^3/uL (140-400) Neutrophils (%) (Auto) 72% (31-73) Lymphocytes (%) (Auto) 17% (24-48) Monocytes (%) (Auto) 7% (0-9) Eosinophils (%) (Auto) 3% (0-3) Basophils (%) (Auto) 1% (0-3) Neutrophils # (Auto) 6.5x10^3uL (1.8-7.7) Lymphocytes # (Auto) 1.6x10^3/uL (1.0-4.8) Monocytes # (Auto) 0.7x10^3/uL (0.0-1.1) Eosinophils # (Auto) 0.2x10^3/uL (0.0-0.7) Basophils # (Auto) 0.1x10^3/uL (0.0-0.2) Platelet Estimate Decreased (ADEQUATE) Giant Platelets Present Hypochromasia Present Anisocytosis Mod Sodium Level 151mmol/L (136-145) Potassium Level 3.7mmol/L (3.5-5.1) Chloride Level 110mmol/L (98-107) Carbon Dioxide Level 36mmol/L (21-32) Anion Gap 5 (6-14) Blood Urea Nitrogen 76mg/dL (7-20) Creatinine 1.1mg/dL (0.6-1.0) Estimated GFR (Cockcroft-Gault) 61.1 Glucose Level 110mg/dL (70-99) Lactic Acid Level 0.9mmol/L (0.4-2.0) Calcium Level 9.0mg/dL (8.5-10.1) Magnesium Level 2.4mg/dL (1.8-2.4) Vancomycin Level Trough < 0.8mcg/mL (10.0-20.0) Vancomycin Last Dose Date 08/08/16 Vancomycin Last Dose Time 1600 Glucose (Fingerstick) 113mg/dL (70-99) 142mg/dL (70-99) Microbiology 08/01/16 Blood Culture - Final, Complete NO GROWTH AFTER 5 DAYS 07/15/16 Urine Culture - Final, Complete 07/15/16 Urine Culture Result 1 (ROYA) - Final, Complete 07/15/16 Urine Culture Result 2 (ROYA) - Final, Complete 07/15/16 Antimicrobic Susceptibility - Final, Complete 07/29/16 Aerobic Culture - Final, Complete 07/29/16 Aerobic Culture Result 1 (ROYA) - Final, Complete Medications Current Medications Piperacillin Sod/ Tazobactam Sod/ Sodium Chloride (Zosyn/Iv Sodium Chloride 0.9 % 100ml) 100 ml @ 200 mls/hr 1X ONCE IV Last administered on 07/15/16 22:56; Start 07/15/16 at 22:00; Stop 07/15/16 at 22:29; Status DC Fentanyl Citrate 50 mcg 50 mcg PRN Q15MIN PRN IV PAIN GREATER THAN 3/10 Last administered on 07/16/16 00:30; Start 07/15/16 at 21:45; Stop 07/16/16 at 02:00; Status DC Sodium Chloride 1,000 ml @ 1,000 mls/hr 1X ONCE IV Last administered on 21:59; Start 07/15/16 at 22:00; Stop 07/15/16 at 22:59; Status DC Sodium Chloride (Iv Sodium Chloride 0.9% 500ml Bag) 500 ml @ 500 mls/hr 1X ONCE IV Last administered on 07/15/16 22:00; Start 07/15/16 at 22:00; Stop at 22:59; Status DC Ondansetron HCl (Zofran) 4 mg PRN Q8HRS PRN IV NAUSEA/VOMITING; Start 07/15/16 at 23:30; Stop 07/16/16 at 08:52; Status DC Fentanyl Citrate 50 mcg 50 mcg PRN Q2HR PRN IV SEVERE PAIN Last administered on 07/16/16 08:10; Start 07/15/16 at 23:30; Stop 07/16/16 at 08:52; Status DC Sodium Chloride (Iv Sodium Chloride 0.9% 1000ml Bag) 1,000 ml @ 150 mls/hr Q6H40M IV Last administered on 07/15/16 02:00; Start 07/15/16 at 23:45; Stop 07/16/16 at 08:52; Status DC Acetaminophen (Tylenol) 650 mg PRN Q4HRS PRN PO FEVER; Start 07/15/16 at 23:30; Stop 07/16/16 at 23:29; Status DC Info (Do NOT chart on this placeholder) 1 each PRN DAILY PRN MC NEEDS VERIFICATION; Start 07/16/16 at 03:00; Status Cancel Acetaminophen 650 mg 650 mg PRN Q4HRS PRN PO MILD PAIN / TEMP Last administered on 07/28/16 07:42; Start 07/16/16 at 08:45; Stop 07/29/16 at 08:33 ; Status DC Piperacillin Sod/ Tazobactam Sod 3.375 gm/Sodium Chloride 50 ml @ 100 mls/hr Q6HRS IV Last administered on 07/18/16 05:50; Start 07/16/16 at 10:00; Stop 07/18 at 13:28; Status DC Linezolid (Zyvox Premix) 300 ml @ 300 mls/hr Q12HR IV Last administered on 07/18 08:34; Start 07/16/16 at 10:00; Stop 07/18/16 at 13:28; Status DC Hydromorphone HCl (Dilaudid) 2 mg PRN Q4HRS PRN IV MODERATE PAIN Last administered on 08/09/16 06:39; Start 07/16/16 at 08:45 Hydromorphone HCl (Dilaudid) 4 mg PRN Q4HRS PRN IV SEVERE PAIN Last administered on 07/30/16 09:23; Start 07/16/16 at 08:45; Stop 07/31/16 at 15:01 ; Status DC Pantoprazole Sodium (Protonix) 40 mg DAILYAC PO Last administered on 07/27/16 11:11; Start 07/16/16 at 09:30; Stop 07/29/16 at 08:44; Status DC Hyoscyamine (Anaspaz) 0.125 mg Q6HRS PO Last administered on 07/20/16 05:20; Start 07/16/16 at 12:00; Stop 07/20/16 at 08:58; Status DC Phenazopyridine HCl (Pyridium) 200 mg TID PO Last administered on 07/20/16 08: 25; Start 07/16/16 at 09:30; Stop 07/20/16 at 08:58; Status DC Lorazepam (Ativan) 0.5 mg PRN BID PRN PO ANXIETY / AGITATION Last administered on 07/29/16 02:16; Start 07/16/16 at 08:45; Stop 07/31/16 at 15:01; Status DC Simethicone (Gas-X) 80 mg PRN Q4HRS PRN PO GAS / BLOATING Last administered on 07/24/16 22:30; Start 07/16/16 at 08:45; Stop 07/31/16 at 15:01; Status DC Zolpidem Tartrate 5 mg 5 mg PRN QHS PRN PO INSOMNIA Last administered on 23:14; Start 07/16/16 at 08:45; Stop 07/31/16 at 15:01; Status DC Potassium Chloride/Dextrose/ Sod Cl 1,000 ml @ 80 mls/hr [id number] IV Last administered on 07/16/16 10:54; Start 07/16/16 at 09:30; Stop 07/16/16 at 21:59; Status DC Fluconazole/ Sodium Chloride (Diflucan 200mg/ 100ml Premix) 100 ml @ 100 mls/ hr Q24H IV Last administered on 07/18/16 11:43; Start 07/16/16 at 11:00; Stop at 13:28; Status DC Info 1 each 1 each PRN DAILY PRN MC SEE COMMENTS Last administered on 12:41; Start 07/16/16 at 10:00; Stop 08/01/16 at 11:24; Status DC Sodium Chloride 220 meq/Sodium Acetate 90 meq/ Potassium Chloride 50 meq/ Potassium Acetate 15 meq/Potassium Phosphate 10 mmol/ Magnesium Sulfate 50 meq/ Calcium Gluconate 6 meq/ Multivitamins/ Minerals 10 ml/ Chromium/Copper/ Manganese/Seleni/ Zn 1 ml/Total Parenteral Nutrition/Amino Acids/Dextro... 1, 920 ml @ 80 mls/hr TPN CONT IV ; Start 07/16/16 at 22:00; Stop 07/16/16 at 22:00 ; Status DC Sodium Chloride/ Sodium Acetate/ Potassium Chloride/ Potassium Acetate/ Potassium Phosphate/ Magnesium Sulfate/ Calcium Gluconate/ Multivitamins/ Minerals/Chromium/ Copper/Manganese/ Seleni/Zn/Total Parenteral Nutrition/Amino Acids/Dextrose/ Fat Emulsion Intravenous (Sodium Chlori... 1,820 ml @ 75.833 mls/ hr TPN CONT IV Last administered on 07/16/16 21:03; Start 07/16/16 at 22: 00; Stop 07/17/16 at 21:59; Status DC Ondansetron HCl (Zofran) 4 mg PRN Q6HRS PRN IV NAUSEA/VOMITING Last administered on 07/21/16 08:48; Start 07/16/16 at 17:15; Stop 07/31/16 at 15:01; Status DC Diphenhydramine HCl (Benadryl) 25 mg PRN Q6HRS PRN PO ITCHING Last administered on 07/25/16 23:38; Start 07/16/16 at 17:45; Stop 07/31/16 at 15:01 ; Status DC Lidocaine (Xylocaine) 1 sang BID TP Last administered on 08/09/16 07:21; Start 07/17/16 at 09:00 Zinc Oxide 1 sang 1 sang BID TP Last administered on 08/09/16 07:21; Start at 09:30 Sodium Chloride/ Sodium Acetate/ Potassium Chloride/ Potassium Acetate/ Potassium Phosphate/ Magnesium Sulfate/ Calcium Gluconate/ Multivitamins/ Minerals/Chromium/ Copper/Manganese/ Seleni/Zn/Total Parenteral Nutrition/Amino Acids/Dextrose/ Fat Emulsion Intravenous (Sodium Chlori... 1,920 ml @ 80 mls/ hr TPN CONT IV Last administered on 07/17/16 22:13; Start 07/17/16 at 22:00; Stop 07/18/16 at 21:59; Status DC Furosemide 40 mg 40 mg 1X ONCE IVP Last administered on 07/18/16 11:43; Start 07/18/16 at 11:00; Stop 07/18/16 at 11:07; Status DC Sodium Chloride 220 meq/Sodium Acetate 90 meq/ Potassium Chloride 50 meq/ Potassium Acetate 15 meq/Potassium Phosphate 10 mmol/ Magnesium Sulfate 50 meq/ Calcium Gluconate 3 meq/ Multivitamins/ Minerals 10 ml/ Chromium/Copper/ Manganese/Seleni/ Zn 1 ml/Total Parenteral Nutrition/Amino Acids/Dextro... 1, 920 ml @ 80 mls/hr TPN CONT IV Last administered on 07/19/16 00:03; Start 07/18/16 at 22:00; Stop 07/19/16 at 21:59; Status DC Meropenem 1 gm/ Sodium Chloride 100 ml @ 200 mls/hr Q8HRS IV Last administered on 07/20/16 05:21; Start 07/18/16 at 14:00; Stop 07/20/16 at 11:25; Status DC Micafungin Sodium 100 mg/Dextrose 100 ml @ 100 mls/hr Q24H IV Last administered on 07/19/16 15:05; Start 07/18/16 at 14:00; Stop 07/20/16 at 11:25; Status DC Daptomycin/Sodium Chloride (Cubicin/Iv Sodium Chloride 0.9% 50ml) 50 ml @ 100 mls/hr Q24H IV Last administered on 07/19/16 16:56; Start 07/18/16 at 15:00; Stop 07/20/16 at 11:25; Status DC Alteplase, Recombinant (Cathflo) 2 mg 1X ONCE INT CAT Last administered on 07/19 06:24; Start 07/19/16 at 07:00; Stop 07/19/16 at 07:01; Status DC Gentamicin Sulfate 1 each 1 each PRN DAILY PRN MC SEE COMMENTS Last administered on 07/25/16 15:31; Start 07/19/16 at 12:15; Stop 07/25/16 at 16:14 ; Status DC Gentamicin Sulfate/Sodium Chloride (Iv Sodium Chloride 0.9% 100ml) 106.75 ml @ 106.75 mls/hr Q24H IV Last administered on 07/25/16 15:31; Start 07/19/16 at 13 :00; Stop 07/25/16 at 16:12; Status DC Gentamicin Sulfate 1 each 1 each 1X ONCE MC Last administered on 07/19/16 23: 00; Start 07/19/16 at 23:00; Stop 07/19/16 at 23:01; Status DC Sodium Chloride/ Sodium Acetate/ Potassium Chloride/ Potassium Acetate/ Potassium Phosphate/ Magnesium Sulfate/ Calcium Gluconate/ Multivitamins/ Minerals/Chromium/ Copper/Manganese/ Seleni/Zn/Total Parenteral Nutrition/Amino Acids/Dextrose/ Fat Emulsion Intravenous (Sodium Chlori... 1,920 ml @ 80 mls/ hr TPN CONT IV Last administered on 07/19/16 20:51; Start 07/19/16 at 22:00; Stop 07/20/16 at 21:59; Status DC Hyoscyamine (Anaspaz) 0.125 mg PRN Q6HRS PRN PO BLADDER SPASM; Start 07/20/16 at 09:00; Stop 07/31/16 at 15:01; Status DC Phenazopyridine HCl 200 mg 200 mg PRN TID PRN PO BLADDER SPASM Last administered on 07/21/16 20:14; Start 07/20/16 at 09:00; Stop 07/31/16 at 15:01; Status DC Linezolid 300 ml @ 300 mls/hr Q12HR IV Last administered on 07/25/16 09:02; Start 07/20/16 at 12:00; Stop 07/25/16 at 16:12; Status DC Sodium Chloride 220 meq/Sodium Acetate 90 meq/ Potassium Chloride 50 meq/ Potassium Acetate 15 meq/Potassium Phosphate 10 mmol/ Magnesium Sulfate 50 meq/ Calcium Gluconate 3 meq/ Multivitamins/ Minerals 10 ml/ Chromium/Copper/ Manganese/Seleni/ Zn 1 ml/Total Parenteral Nutrition/Amino Acids/Dextro... 1, 920 ml @ 80 mls/hr TPN CONT IV Last administered on 07/20/16 21:30; Start 07/20/16 at 22:00; Stop 07/21/16 at 21:59; Status DC Sodium Chloride/ Sodium Acetate/ Potassium Chloride/ Potassium Acetate/ Potassium Phosphate/ Magnesium Sulfate/ Multivitamins/ Minerals/Chromium/ Copper /Manganese/ Seleni/Zn/Total Parenteral Nutrition/Amino Acids/Dextrose/ Fat Emulsion Intravenous (Sodium Chloride/ Potass... 1,920 ml @ 80 mls/hr TPN CONT IV Last administered on 07/21/16 22:05; Start 07/21/16 at 22:00; Stop at 21:59; Status DC Alteplase, Recombinant 2 mg 2 mg PRN DAILY PRN INT CAT INFLAMMATION Last administered on 07/27/16 11:31; Start 07/21/16 at 15:00 Sodium Chloride 220 meq/Sodium Acetate 90 meq/ Potassium Chloride 50 meq/ Potassium Acetate 15 meq/Potassium Phosphate 10 mmol/ Magnesium Sulfate 50 meq/ Multivitamins/ Minerals 10 ml/ Chromium/Copper/ Manganese/Seleni/ Zn 1 ml/Total Parenteral Nutrition/Amino Acids/Dextrose/ Fat Emuls... 1,920 ml @ 80 mls/hr TPN CONT IV Last administered on 07/22/16 20:53; Start 07/22/16 at 22:00; Stop 07/23/16 at 21:59; Status DC Sodium Chloride/ Sodium Acetate/ Potassium Chloride/ Potassium Acetate/ Potassium Phosphate/ Magnesium Sulfate/ Multivitamins/ Minerals/Chromium/ Copper /Manganese/ Seleni/Zn/Total Parenteral Nutrition/Amino Acids/Dextrose/ Fat Emulsion Intravenous (Sodium Chloride/ Potass... 1,920 ml @ 80 mls/hr TPN CONT IV Last administered on 07/23/16 21:16; Start 07/23/16 at 22:00; Stop 07/24 at 21:59; Status DC Gentamicin Sulfate 1 each 1 each 1X ONCE MC ; Start 07/23/16 at 22:00; Stop 07/23 at 22:01; Status Cancel Sodium Chloride/ Sodium Acetate/ Potassium Chloride/ Potassium Acetate/ Potassium Phosphate/ Magnesium Sulfate/ Multivitamins/ Minerals/Chromium/ Copper /Manganese/ Seleni/Zn/Total Parenteral Nutrition/Amino Acids/Dextrose/ Fat Emulsion Intravenous (Sodium Chloride/ Potass... 1,920 ml @ 80 mls/hr TPN CONT IV Last administered on 07/24/16 21:15; Start 07/24/16 at 22:00; Stop 04/30 at 21:59; Status DC Gentamicin Sulfate 1 each 1X ONCE MC ; Start 07/25/16 at 12:30; Stop 07/25/16 at 12:31; Status Cancel Amlodipine Besylate 5 mg 5 mg DAILY PO Last administered on 07/27/16 11:12; Start 07/25/16 at 12:00; Stop 07/29/16 at 08:44; Status DC Sodium Chloride 220 meq/Sodium Acetate 90 meq/ Potassium Chloride 30 meq/ Potassium Acetate 15 meq/Potassium Phosphate 10 mmol/ Magnesium Sulfate 50 meq/ Multivitamins/ Minerals 10 ml/ Chromium/Copper/ Manganese/Seleni/ Zn 1 ml/Total Parenteral Nutrition/Amino Acids/Dextrose/ Fat Emuls... 1,920 ml @ 80 mls/hr TPN CONT IV Last administered on 07/25/16 22:25; Start 07/25/16 at 22:00; Stop 07/26/16 at 21:59; Status DC Sodium Chloride/ Sodium Acetate/ Potassium Chloride/ Potassium Acetate/ Potassium Phosphate/ Magnesium Sulfate/ Multivitamins/ Minerals/Chromium/ Copper /Manganese/ Seleni/Zn/Total Parenteral Nutrition/Amino Acids/Dextrose/ Fat Emulsion Intravenous (Sodium Chloride/ Potass... 1,920 ml @ 80 mls/hr TPN CONT IV Last administered on 07/26/16 23:16; Start 07/26/16 at 22:00; Stop at 21:59; Status DC Furosemide 20 mg 20 mg 1X ONCE IVP Last administered on 07/27/16 11:31; Start 07/27/16 at 09:00; Stop 07/27/16 at 09:01; Status DC Daptomycin 340 mg/ Sodium Chloride 50 ml @ 100 mls/hr Q24H IV Last administered on 07/29/16 15:05; Start 07/27/16 at 13:00; Stop 07/30/16 at 07:25 ; Status DC Piperacillin Sod/ Tazobactam Sod 3.375 gm/Sodium Chloride 50 ml @ 100 mls/hr Q6HRS IV Last administered on 07/30/16 05:30; Start 07/27/16 at 12:30; Stop at 07:25; Status DC Fluconazole/ Sodium Chloride 100 ml @ 100 mls/hr Q24H IV Last administered on 07/28/16 13:32; Start 07/27/16 at 13:00; Stop 07/29/16 at 00:53; Status DC Sodium Chloride 1,000 ml @ 1,000 mls/hr 1X ONCE IV Last administered on 12:34; Start 07/27/16 at 12:30; Stop 07/27/16 at 13:29; Status DC Sodium Chloride 220 meq/Sodium Acetate 90 meq/ Potassium Chloride 30 meq/ Potassium Acetate 15 meq/Potassium Phosphate 10 mmol/ Magnesium Sulfate 45 meq/ Multivitamins/ Minerals 10 ml/ Chromium/Copper/ Manganese/Seleni/ Zn 1 ml/Total Parenteral Nutrition/Amino Acids/Dextrose/ Fat Emuls... 1,920 ml @ 80 mls/hr TPN CONT IV Last administered on 07/27/16 22:38; Start 07/27/16 at 22:00; Stop 07/28/16 at 21:59; Status DC Sodium Chloride (Iv Sodium Chloride 0.9% 1000ml Bag) 1,000 ml @ 45 mls/hr [id number] IV Last administered on 07/28/16 03:24; Start 07/27/16 at 17:00; Stop 07/28/16 at 10:27; Status DC Acetaminophen 650 mg 650 mg PRN Q6HRS PRN AL fever Last administered on 03:57; Start 07/27/16 at 16:30; Stop 07/29/16 at 08:33; Status DC Sodium Chloride 1,000 ml @ 427.5 mls/ hr Q2H21M IV Last administered on 19:30; Start 07/27/16 at 19:30; Stop 07/27/16 at 23:30; Status DC Sodium Chloride 220 meq/Sodium Acetate 90 meq/ Potassium Chloride 30 meq/ Potassium Acetate 15 meq/Potassium Phosphate 10 mmol/ Magnesium Sulfate 45 meq/ Multivitamins/ Minerals 10 ml/ Chromium/Copper/ Manganese/Seleni/ Zn 1 ml/Total Parenteral Nutrition/Amino Acids/Dextrose/ Fat Emuls... 1,920 ml @ 80 mls/hr TPN CONT IV Last administered on 07/28/16 21:43; Start 07/28/16 at 22:00; Stop 07/29/16 at 21:59; Status DC Micafungin Sodium/ Dextrose (Mycamine) 100 ml @ 100 mls/hr Q24H IV Last administered on 08/09/16 01:20; Start 07/29/16 at 01:00 Lorazepam (Ativan) 0.05 mg PRN Q4HRS PRN IV ANXIETY / AGITATION; Start at 02:30; Stop 07/29/16 at 02:48; Status DC Lorazepam (Ativan) 0.5 mg PRN Q4HRS PRN IV ANXIETY / AGITATION Last administered on 08/09/16 02:31; Start 07/29/16 at 03:00 Acetaminophen (Tylenol) 650 mg PRN Q4HRS PRN AL MILD PAIN / TEMP; Start at 08:30 Ketorolac Tromethamine (Toradol) 30 mg PRN Q6HRS PRN IV PAIN/FEVER Last administered on 07/30/16 00:50; Start 07/29/16 at 08:30; Stop 07/30/16 at 13:01 ; Status DC Pantoprazole Sodium 40 mg 40 mg DAILYAC IVP Last administered on 08/09/16 07: 20; Start 07/29/16 at 09:00 Sodium Chloride 1,000 ml @ 45 mls/hr [id number] IV Last administered on 09:17; Start 07/29/16 at 08:45; Stop 07/31/16 at 15:01; Status DC Sodium Chloride/ Sodium Acetate/ Potassium Chloride/ Potassium Acetate/ Potassium Phosphate/ Magnesium Sulfate/ Multivitamins/ Minerals/Chromium/ Copper /Manganese/ Seleni/Zn/Total Parenteral Nutrition/Amino Acids/Dextrose/ Fat Emulsion Intravenous (Sodium Chloride/ Potass... 1,920 ml @ 80 mls/hr TPN CONT IV Last administered on 07/29/16 22:06; Start 07/29/16 at 22:00; Stop at 21:59; Status DC Lidocaine/Sodium Bicarbonate 20 ml 20 ml STK-MED ONCE IJ ; Start 07/29/16 at 13: 13; Stop 07/29/16 at 13:14; Status DC Heparin Sodium/ Sodium Chloride 500 ml @ As Directed STK-MED ONCE .ROUTE ; Start 07/29/16 at 13:13; Stop 07/29/16 at 13:14; Status DC Lidocaine/ Epinephrine (Xylocaine 1%-Epi 1:100,000) 20 ml STK-MED ONCE .ROUTE ; Start 07/29/16 at 13:22; Stop 07/29/16 at 13:23; Status DC Midazolam HCl (Versed) 5 mg STK-MED ONCE .ROUTE ; Start 07/29/16 at 13:32; Stop 07/29/16 at 13:33; Status DC Fentanyl Citrate (Fentanyl 5ml Vial) 250 mcg STK-MED ONCE .ROUTE ; Start at 13:32; Stop 07/29/16 at 13:33; Status DC Heparin Sodium/ Sodium Chloride 1,000 unit 1X ONCE IART Last administered on 13:45; Start 07/29/16 at 13:45; Stop 07/29/16 at 13:48; Status DC Midazolam HCl (Versed) 5 mg 1X ONCE IV Last administered on 07/29/16 13:45; Start 07/29/16 at 13:45; Stop 07/29/16 at 13:48; Status DC Fentanyl Citrate (Fentanyl 5ml Vial) 250 mcg 1X ONCE IV Last administered on 13:45; Start 07/29/16 at 13:45; Stop 07/29/16 at 13:48; Status DC Lidocaine/ Epinephrine 20 ml 20 ml 1X ONCE IJ Last administered on 07/29/16 13:45; Start 07/29/16 at 13:45; Stop 07/29/16 at 13:48; Status DC Sodium Chloride 220 meq/Sodium Acetate 90 meq/ Potassium Chloride 15 meq/ Potassium Acetate 30 meq/Potassium Phosphate 10 mmol/ Magnesium Sulfate 45 meq/ Multivitamins/ Minerals 10 ml/ Chromium/Copper/ Manganese/Seleni/ Zn 1 ml/Total Parenteral Nutrition/Amino Acids/Dextrose/ Fat Emuls... 1,920 ml @ 80 mls/hr TPN CONT IV ; Start 07/30/16 at 22:00; Stop 07/31/16 at 21:59; Status DC Norepinephrine Bitartrate 8 mg/ Sodium Chloride 258 ml @ 1.93 mls/hr 1X ONCE IV Last administered on 07/30/16 11:17; Start 07/30/16 at 11:15; Stop at 15:43; Status DC Norepinephrine Bitartrate/Sodium Chloride (Levophed Vial/ Iv Sodium Chloride 0.9 % 250ml) 258 ml @ 0 mls/hr CONT PRN IV SEE I/O RECORD Last administered on 08/02 19:54; Start 07/30/16 at 11:15; Stop 08/04/16 at 09:29; Status DC Furosemide 60 mg 60 mg 1X ONCE IVP Last administered on 07/30/16 11:14; Start 07/30/16 at 11:15; Stop 07/30/16 at 11:16; Status DC Sodium Chloride 500 ml @ 500 mls/hr Q1H IV Last administered on 07/30/16 17: 04; Start 07/30/16 at 14:30; Stop 07/30/16 at 15:29; Status DC Albumin Human 100 ml @ 100 mls/hr Q8HRS IV Last administered on 07/31/16 05: 37; Start 07/30/16 at 14:30; Stop 07/31/16 at 06:59; Status DC Furosemide/Sodium Chloride (Lasix Drip/Iv Sodium Chloride 0.9% 100ml) 100 ml @ 0 mls/hr CONT PRN IV SEE I/O RECORD Last administered on 07/31/16 03:17; Start 07/30/16 at 14:30; Stop 08/01/16 at 13:19; Status DC Ondansetron HCl (Zofran) 8 mg PRN Q8HRS PRN IV NAUSEA/VOMITING Last administered on 07/30/16 14:38; Start 07/30/16 at 14:30 Sodium Bicarbonate 50 meq 50 meq 1X ONCE IV Last administered on 07/30/16 14: 43; Start 07/30/16 at 14:30; Stop 07/30/16 at 14:31; Status DC Heparin Sodium/ Sodium Chloride 500 ml @ As Directed STK-MED ONCE .ROUTE ; Start 07/30/16 at 14:49; Stop 07/30/16 at 14:50; Status DC Lidocaine HCl 20 ml STK-MED ONCE .ROUTE ; Start 07/30/16 at 14:49; Stop at 14:50; Status DC Midazolam HCl (Versed) 2 mg STK-MED ONCE .ROUTE ; Start 07/30/16 at 15:19; Stop 07/30/16 at 15:20; Status DC Heparin Sodium/ Sodium Chloride 1,000 unit 1X ONCE IART Last administered on 2 /16/17at 15:44; Start 07/30/16 at 15:45; Stop 07/30/16 at 15:46; Status DC Midazolam HCl (Versed) 1.5 mg 1X ONCE IV Last administered on 07/30/16 15:44 ; Start 07/30/16 at 15:45; Stop 07/30/16 at 15:46; Status DC Lidocaine HCl 20 ml 1X ONCE IJ Last administered on 07/30/16 15:44; Start at 15:45; Stop 07/30/16 at 15:46; Status DC Heparin Sodium (Porcine) 33763 unit 10,000 unit STK-MED ONCE .ROUTE ; Start at 15:54; Stop 07/30/16 at 15:55; Status DC Fentanyl Citrate 30 ml @ 0 mls/hr CONT PRN PRN IV PROTOCOL Last administered on 08/08/16 10:21; Start 07/30/16 at 16:45; Stop 08/08/16 at 11:03; Status DC Sodium Bicarbonate/ Dextrose 1,150 ml @ 125 mls/hr 1X ONCE IV Last administered on 07/30/16 18:34; Start 07/30/16 at 17:30; Stop 07/31/16 at 02:41 ; Status DC Succinylcholine Chloride 200 mg 200 mg STK-MED ONCE .ROUTE ; Start 07/30/16 at 19:47; Stop 07/30/16 at 19:48; Status DC Propofol 100 ml @ As Directed STK-MED ONCE IV ; Start 07/30/16 at 19:48; Stop 07/30/16 at 19:49; Status DC Midazolam HCl (Versed 100mg/ 100ml Premix) 100 ml @ 0 mls/hr CONT PRN IV SEE I/ O RECORD Last administered on 08/03/16 12:18; Start 07/30/16 at 21:15 Sodium Bicarbonate 50 meq 50 meq 1X ONCE IV Last administered on 07/30/16 22: 15; Start 07/30/16 at 22:30; Stop 07/30/16 at 22:31; Status DC Dopamine HCl/ Dextrose 250 ml @ 11.513 mls/ hr CONT PRN IV SEE I/O RECORD Last administered on 07/31/16 20:16; Start 07/30/16 at 22:15; Stop 08/04/16 at 09:29; Status DC Sodium Bicarbonate/ Dextrose 1,150 ml @ 125 mls/hr Q9H12M IV Last administered on 08/01/16 09:30; Start 07/31/16 at 03:00; Stop 08/01/16 at 13:19 ; Status DC Propofol (Diprivan) 1,000 mg STK-MED ONCE IV ; Start 07/30/16 at 20:00; Stop at 08:16; Status DC Succinylcholine Chloride 200 mg 200 mg STK-MED ONCE .ROUTE ; Start 07/30/16 at 20:00; Stop 07/31/16 at 08:16; Status DC Tigecycline 50 mg/ Sodium Chloride 50 ml @ 100 mls/hr Q12HR IV Last administered on 08/04/16 09:01; Start 07/31/16 at 21:00; Stop 08/04/16 at 10:00 ; Status DC Tigecycline/ Sodium Chloride (Tygacil/Iv Sodium Chloride 0.9% 100ml) 100 ml @ 200 mls/hr 1X ONCE IV Last administered on 07/31/16 09:22; Start 07/31/16 at 09:00; Stop 07/31/16 at 09:29; Status DC Darbepoetin Sarbjit 60 mcg 60 mcg WEEKLYHS SQ Last administered on 08/07/16 21:41 ; Start 07/31/16 at 21:00 Albumin Human 100 ml @ 100 mls/hr 1X ONCE IV Last administered on 07/31/16 11:40; Start 07/31/16 at 11:15; Stop 07/31/16 at 12:14; Status DC Albumin Human 100 ml @ 100 mls/hr 1X ONCE IV Last administered on 07/31/16 12:03; Start 07/31/16 at 11:15; Stop 07/31/16 at 12:14; Status DC Sodium Chloride (Iv Sodium Chloride 0.9% 1000ml Bag) 1,000 ml @ 1,000 mls/hr Q1H PRN IV hypotension; Start 07/31/16 at 11:33; Stop 07/31/16 at 17:32; Status DC Info (PHARMACY MONITORING -- do not chart) 1 each PRN DAILY PRN MC SEE COMMENTS ; Start 07/31/16 at 11:45 Info (PHARMACY MONITORING -- do not chart) 1 each PRN DAILY PRN MC SEE COMMENTS ; Start 07/31/16 at 11:45; Status UNV Hydrocortisone Sodium Succinate (Solu-Cortef) 100 mg Q8HRS IV Last administered on 08/04/16 06:16; Start 08/01/16 at 07:00; Stop 08/04/16 at 09:29 ; Status DC Albuterol/ Ipratropium (Duoneb) 3 ml RTQID NEB Last administered on 08/09/16 08:44; Start 08/01/16 at 08:00 Albuterol/ Ipratropium 3 ml 3 ml STK-MED ONCE .ROUTE Last administered on 07:34; Start 08/01/16 at 06:59; Stop 08/01/16 at 07:00; Status DC Sodium Chloride 1,000 ml @ 1,000 mls/hr Q1H PRN IV hypotension; Start 08/01/16 at 06:57; Stop 08/01/16 at 12:56; Status DC Albumin Human (Albuminar) 200 ml @ 200 mls/hr 1X PRN PRN IV Hypotension; Start 08/01/16 at 07:00; Stop 08/01/16 at 12:59; Status DC Info (PHARMACY MONITORING -- do not chart) 1 each PRN DAILY PRN MC SEE COMMENTS ; Start 08/01/16 at 07:00; Status UNV Info 1 each 1 each PRN DAILY PRN MC SEE COMMENTS Last administered on 13:05; Start 08/01/16 at 13:30 Sodium Chloride 220 meq/Sodium Acetate 90 meq/ Potassium Chloride 15 meq/ Potassium Acetate 30 meq/Potassium Phosphate 10 mmol/ Magnesium Sulfate 45 meq/ Multivitamins/ Minerals 10 ml/ Chromium/Copper/ Manganese/Seleni/ Zn 1 ml/Total Parenteral Nutrition/Amino Acids/Dextrose/ Fat Emuls... 1,920 ml @ 80 mls/hr TPN CONT IV Last administered on 08/01/16 21:56; Start 08/01/16 at 22:00; Stop 08/02/16 at 21:59; Status DC Potassium Chloride (KCl Premix 20meq) 50 ml @ 50 mls/hr Q1H IV Last administered on 08/01/16 19:05; Start 08/01/16 at 17:00; Stop 08/01/16 at 18:59 ; Status DC Insulin Aspart 0-6 UNITS TIDWMEALS SQ Last administered on 08/02/16 11:33; Start 08/02/16 at 12:00; Stop 08/02/16 at 14:34; Status DC Sodium Chloride 220 meq/Sodium Acetate 90 meq/ Potassium Chloride 15 meq/ Potassium Acetate 30 meq/Magnesium Sulfate 45 meq/ Multivitamins/ Minerals 10 ml / Chromium/Copper/ Manganese/Seleni/ Zn 1 ml/Total Parenteral Nutrition/Amino Acids/Dextrose/ Fat Emulsion Intravenous 1,920 ml @ 80 mls/hr TPN CONT IV Last administered on 08/02/16 21:34; Start 08/02/16 at 22:00; Stop 08/03/16 at 21:59; Status DC Levofloxacin/ Dextrose 150 ml @ 100 mls/hr 1X ONCE IV Last administered on 14:35; Start 08/02/16 at 14:00; Stop 08/02/16 at 15:29; Status DC Daptomycin/Sodium Chloride (Cubicin/Iv Sodium Chloride 0.9% 50ml) 50 ml @ 100 mls/hr ONCE ONCE IV Last administered on 08/02/16 14:34; Start 08/02/16 at 15 :00; Stop 08/02/16 at 15:29; Status DC Insulin Aspart 0-6 UNITS Q6HRS SQ Last administered on 08/07/16 18:14; Start 08/02/16 at 18:00 Sodium Chloride (Iv Sodium Chloride 0.9% 1000ml Bag) 1,000 ml @ 1,000 mls/hr Q1H PRN IV hypotension; Start 08/03/16 at 07:26; Stop 08/03/16 at 13:25; Status DC Diphenhydramine HCl (Benadryl) 25 mg 1X PRN PRN IV ITCHING; Start 08/03/16 at 07:30; Stop 08/04/16 at 07:29; Status DC Diphenhydramine HCl (Benadryl) 25 mg 1X PRN PRN IV ITCHING; Start 08/03/16 at 07:30; Stop 08/04/16 at 07:29; Status DC Sodium Chloride (Normal Saline Flush) 10 ml 1X PRN PRN IV AP catheter pack; Start 08/03/16 at 07:30; Stop 08/04/16 at 07:29; Status DC Sodium Chloride 10 ml 10 ml 1X PRN PRN IV LOZENGE MAKER catheter pack; Start 08/03/16 at 07:30; Stop 08/04/16 at 07:29; Status DC Sodium Chloride (Iv Sodium Chloride 0.9% 1000ml Bag) 1,000 ml @ 400 mls/hr Q2H30M PRN IV PATENCY; Start 08/03/16 at 07:26; Stop 08/03/16 at 19:25; Status DC Info 1 each 1 each PRN DAILY PRN MC SEE COMMENTS; Start 08/03/16 at 07:30; Status UNV Albumin Human 200 ml @ 200 mls/hr Q2HR IV Last administered on 08/03/16 10:00 ; Start 08/03/16 at 08:44; Stop 08/03/16 at 10:59; Status DC Sodium Chloride 160 meq/Sodium Acetate 60 meq/ Potassium Chloride 15 meq/ Potassium Acetate 30 meq/Magnesium Sulfate 25 meq/ Multivitamins/ Minerals 10 ml / Chromium/Copper/ Manganese/Seleni/ Zn 1 ml/Total Parenteral Nutrition/Amino Acids/Dextrose/ Fat Emulsion Intravenous 1,500 ml @ 62.5 mls/hr TPN CONT IV Last administered on 08/03/16 22:52; Start 08/03/16 at 22:00; Stop 08/04/16 at 21:59; Status DC Levofloxacin/ Dextrose 100 ml @ 100 mls/hr 1X ONCE IV Last administered on 10:50; Start 08/04/16 at 07:30; Stop 08/04/16 at 08:30; Status DC Daptomycin 450 mg/ Sodium Chloride 50 ml @ 100 mls/hr ONCE ONCE IV Last administered on 08/04/16 09:55; Start 08/04/16 at 08:00; Stop 08/04/16 at 08:30 ; Status DC Tigecycline/ Sodium Chloride (Tygacil/Iv Sodium Chloride 0.9% 50ml) 50 ml @ 100 mls/hr Q12HR IV Last administered on 08/09/16 07:20; Start 08/04/16 at 21: 00; Stop 08/09/16 at 09:42; Status DC Hydrocortisone Sodium Succinate 50 mg 50 mg Q8HRS IV Last administered on 05:39; Start 08/04/16 at 14:00; Stop 08/05/16 at 11:12; Status DC Furosemide 100 mg/ Sodium Chloride 100 ml @ 0 mls/hr CONT PRN IV SEE I/O RECORD Last administered on 08/09/16 06:43; Start 08/04/16 at 11:30 Sodium Chloride 160 meq/Sodium Acetate 60 meq/ Potassium Chloride 15 meq/ Potassium Acetate 30 meq/Magnesium Sulfate 25 meq/ Multivitamins/ Minerals 10 ml / Chromium/Copper/ Manganese/Seleni/ Zn 1 ml/Total Parenteral Nutrition/Amino Acids/Dextrose/ Fat Emulsion Intravenous 1,500 ml @ 62.5 mls/hr TPN CONT IV Last administered on 08/04/16 21:45; Start 08/04/16 at 22:00; Stop 08/06/16 at 08:48; Status DC Sodium Chloride 1,000 ml @ 1,000 mls/hr Q1H PRN IV hypotension; Start 08/04/16 at 12:00; Stop 08/04/16 at 17:59; Status DC Sodium Chloride (Iv Sodium Chloride 0.9% 1000ml Bag) 1,000 ml @ 400 mls/hr Q2H30M PRN IV PATENCY; Start 08/04/16 at 12:00; Stop 08/04/16 at 23:59; Status DC Info 1 each 1 each PRN DAILY PRN MC SEE COMMENTS; Start 08/04/16 at 16:30; Status UNV Levofloxacin/ Dextrose 100 ml @ 100 mls/hr 1X ONCE IV Last administered on 14:27; Start 08/05/16 at 14:00; Stop 08/05/16 at 14:59; Status DC Daptomycin/Sodium Chloride (Cubicin/Iv Sodium Chloride 0.9% 50ml) 50 ml @ 100 mls/hr 1X ONCE IV Last administered on 08/05/16 14:27; Start 08/05/16 at 14: 00; Stop 08/05/16 at 14:29; Status DC Heparin Sodium (Porcine) 10,000 unit STK-MED ONCE .ROUTE ; Start 08/05/16 at 09: 35; Stop 08/05/16 at 09:36; Status DC Lidocaine/Sodium Bicarbonate 20 ml 20 ml STK-MED ONCE IJ ; Start 08/05/16 at 09: 36; Stop 08/05/16 at 09:37; Status DC Heparin Sodium/ Sodium Chloride 500 ml @ As Directed STK-MED ONCE .ROUTE ; Start 08/05/16 at 09:36; Stop 08/05/16 at 09:37; Status DC Lidocaine/Sodium Bicarbonate (Buffered Lidocaine 1%) 2 ml 1X ONCE IJ Last administered on 08/05/16 10:04; Start 08/05/16 at 10:00; Stop 08/05/16 at 10:02 ; Status DC Heparin Sodium/ Sodium Chloride 60 unit 1X ONCE IV Last administered on 10:04; Start 08/05/16 at 10:00; Stop 08/05/16 at 10:02; Status DC Heparin Sodium (Porcine) 2,800 unit 1X ONCE INT CAT Last administered on 10:04; Start 08/05/16 at 10:00; Stop 08/05/16 at 10:02; Status DC Info (PHARMACY MONITORING -- do not chart) 1 each PRN DAILY PRN MC SEE COMMENTS ; Start 08/05/16 at 10:30; Stop 08/05/16 at 10:30; Status DC Info (PHARMACY MONITORING -- do not chart) 1 each PRN DAILY PRN MC SEE COMMENTS ; Start 08/05/16 at 10:30; Stop 08/05/16 at 10:30; Status DC Hydrocortisone Sodium Succinate 50 mg 50 mg BID IV Last administered on 07:49; Start 08/05/16 at 21:00; Stop 08/07/16 at 10:23; Status DC Sodium Chloride 160 meq/Sodium Acetate 60 meq/ Potassium Chloride 15 meq/ Potassium Acetate 30 meq/Magnesium Sulfate 25 meq/ Multivitamins/ Minerals 10 ml / Chromium/Copper/ Manganese/Seleni/ Zn 1 ml/Total Parenteral Nutrition/Amino Acids/Dextrose/ Fat Emulsion Intravenous 1,500 ml @ 62.5 mls/hr TPN CONT IV Last administered on 08/05/16 22:04; Start 08/05/16 at 22:00; Stop 08/06/16 at 21:59; Status DC Daptomycin 500 mg/ Sodium Chloride 50 ml @ 100 mls/hr Q24H IV Last administered on 08/08/16 13:27; Start 08/06/16 at 14:00 Sodium Chloride (Iv Sodium Chloride 0.9% 1000ml Bag) 1,000 ml @ 1,000 mls/hr Q1H PRN IV hypotension; Start 08/06/16 at 08:21; Stop 08/06/16 at 14:20; Status DC Diphenhydramine HCl (Benadryl) 25 mg 1X PRN PRN IV ITCHING; Start 08/06/16 at 08:30; Stop 08/07/16 at 08:29; Status DC Diphenhydramine HCl (Benadryl) 25 mg 1X PRN PRN IV ITCHING; Start 08/06/16 at 08:30; Stop 08/07/16 at 08:29; Status DC Sodium Chloride (Normal Saline Flush) 10 ml 1X PRN PRN IV AP catheter pack; Start 08/06/16 at 08:30; Stop 08/07/16 at 08:29; Status DC Sodium Chloride 10 ml 10 ml 1X PRN PRN IV LOZENGE MAKER catheter pack; Start 08/06/16 at 08:30; Stop 08/07/16 at 08:29; Status DC Sodium Chloride (Iv Sodium Chloride 0.9% 1000ml Bag) 1,000 ml @ 400 mls/hr Q2H30M PRN IV PATENCY; Start 08/06/16 at 08:21; Stop 08/06/16 at 20:20; Status DC Info 1 each 1 each PRN DAILY PRN MC SEE COMMENTS; Start 08/06/16 at 08:30; Status UNV Albumin Human 200 ml @ 200 mls/hr 1X STAT IV Last administered on 08/06/16 10:09; Start 08/06/16 at 09:52; Stop 08/06/16 at 10:51; Status DC Sodium Chloride/ Sodium Acetate/ Potassium Chloride/ Potassium Acetate/ Magnesium Sulfate/ Multivitamins/ Minerals/Chromium/ Copper/Manganese/ Seleni/Zn /Total Parenteral Nutrition/Amino Acids/Dextrose/ Fat Emulsion Intravenous ( Sodium Chloride/ Infuvite Adult/ Multitrace-5 Conc/ Tpn - Tpn Flu... 1,500 ml @ 62.5 mls/hr TPN CONT IV Last administered on 08/06/16 21:57; Start at 22:00; Stop 08/07/16 at 21:59; Status DC Darbepoetin Sarbjit 60 mcg 60 mcg WEEKLYHS SQ ; Start 08/07/16 at 21:00; Status UNV Potassium Chloride (KCl Premix 20meq) 50 ml @ 50 mls/hr Q1H IV Last administered on 08/07/16 10:46; Start 08/07/16 at 08:00; Stop 08/07/16 at 09:59 ; Status DC Hydrocortisone Sodium Succinate 25 mg 25 mg BID IV ; Start 08/07/16 at 21:00; Stop 08/07/16 at 21:00; Status DC Sodium Chloride (Iv Sodium Chloride 0.9% 1000ml Bag) 1,000 ml @ 1,000 mls/hr Q1H PRN IV hypotension; Start 08/07/16 at 12:08; Stop 08/07/16 at 18:07; Status DC Diphenhydramine HCl (Benadryl) 25 mg 1X PRN PRN IV ITCHING; Start 08/07/16 at 12:15; Stop 08/08/16 at 12:14; Status DC Diphenhydramine HCl (Benadryl) 25 mg 1X PRN PRN IV ITCHING; Start 08/07/16 at 12:15; Stop 08/08/16 at 12:14; Status DC Sodium Chloride (Normal Saline Flush) 10 ml 1X PRN PRN IV AP catheter pack; Start 08/07/16 at 12:15; Stop 08/08/16 at 12:14; Status DC Sodium Chloride (Normal Saline Flush) 10 ml 1X PRN PRN IV LOZENGE MAKER catheter pack; Start 08/07/16 at 12:15; Stop 08/08/16 at 12:14; Status DC Info (PHARMACY MONITORING -- do not chart) 1 each PRN DAILY PRN MC SEE COMMENTS ; Start 08/07/16 at 12:15; Status UNV Info 1 each 1 each PRN DAILY PRN MC SEE COMMENTS; Start 08/07/16 at 12:15; Status UNV Sodium Chloride 160 meq/Sodium Acetate 60 meq/ Potassium Chloride 55 meq/ Potassium Acetate 30 meq/Magnesium Sulfate 25 meq/ Multivitamins/ Minerals 10 ml / Chromium/Copper/ Manganese/Seleni/ Zn 1 ml/Total Parenteral Nutrition/Amino Acids/Dextrose/ Fat Emulsion Intravenous 1,500 ml @ 62.5 mls/hr TPN CONT IV Last administered on 08/07/16 21:41; Start 08/07/16 at 22:00; Stop 08/08/16 at 21:59; Status DC Potassium Chloride (KCl Premix 20meq) 50 ml @ 50 mls/hr 1X ONCE IV Last administered on 08/08/16 09:04; Start 08/08/16 at 10:00; Stop 08/08/16 at 10:59 ; Status DC Fentanyl Citrate 25 mcg 25 mcg PRN Q4HRS PRN IV PAIN Last administered on 09:19; Start 08/08/16 at 11:00 Potassium Chloride 50 ml @ 50 mls/hr 1X ONCE IV Last administered on 15:33; Start 08/08/16 at 11:15; Stop 08/08/16 at 12:14; Status DC Sodium Chloride 140 meq/Sodium Acetate 60 meq/ Potassium Chloride 70 meq/ Potassium Acetate 30 meq/Magnesium Sulfate 25 meq/ Multivitamins/ Minerals 10 ml / Chromium/Copper/ Manganese/Seleni/ Zn 1 ml/Total Parenteral Nutrition/Amino Acids/Dextrose/ Fat Emulsion Intravenous 1,500 ml @ 62.5 mls/hr TPN CONT IV Last administered on 08/08/16 21:42; Start 08/08/16 at 22:00; Stop 08/09/16 at 11:30; Status DC Tigecycline/ Sodium Chloride (Tygacil/Iv Sodium Chloride 0.9% 50ml) 50 ml @ 100 mls/hr Q12HR IV ; Start 08/09/16 at 09:42; Stop 08/09/16 at 10:03; Status DC Active Scripts Active Dilaudid (Hydromorphone Hcl) 4 Mg Tablet 4 Mg PO Q6HRS Phenazopyridine Hcl 200 Mg Tablet 200 Mg PO PRN TID PRN FENTANYL 50mcg/hr (Fentanyl) 1 Each Patch.td72 1 Patch TD Q3DAYS Anaspaz (Hyoscyamine Sulfate) 0.125 Mg Tab.rapdis 0.125 Mg PO Q6HRS PRN Cefpodoxime Proxetil 200 Mg Tablet 200 Mg PO BID Sertraline Hcl 50 Mg Tablet 100 Mg PO DAILY 30 Days Protonix (Pantoprazole Sodium) 40 Mg Tablet.dr 1 Tab PO DAILY Zinc Oxide 56.7 Gm Oint...g. 1 Sang TP BID Lidocaine 35.44 Gm Oint...g. 1 Sang TP BID Ondansetron Odt (Ondansetron) 4 Mg Tab.rapdis 8 Mg PO PRN Q8HRS PRN Gas-X (Simethicone) 80 Mg Tab.chew 80 Mg PO PRN QID PRN Reported Lorazepam 0.5 Mg Tablet 0.5 Mg PO PRN BID PRN Vitals/I & O Vital Sign - Last 24 Hours 08/08/16 08/08/16 08/08/16 08/08/16 11:48 12:00 12:00 12:05 Temp 97.6 97.6 Pulse 102 Resp 14 14 B/P 127/93 Pulse Ox 100 100 100 O2 Delivery Ventilator Ventilator Mechanical Ventilator Ventilator 08/08/16 08/08/16 08/08/16 08/08/16 13:00 14:00 14:00 14:11 Pulse 98 95 88 Resp 14 15 15 B/P 118/74 123/78 124/78 Pulse Ox 100 100 100 100 O2 Delivery Ventilator Ventilator Ventilator Ventilator 08/08/16 08/08/16 08/08/16 08/08/16 14:26 14:37 14:39 14:54 Pulse 92 86 86 88 Resp 14 14 14 14 B/P 129/75 117/89 117/89 138/72 Pulse Ox 100 100 100 100 O2 Delivery Ventilator Ventilator Ventilator Ventilator 08/08/16 08/08/16 08/08/16 08/08/16 14:57 15:02 16:00 16:00 Pulse 87 Resp 14 14 B/P 133/72 Pulse Ox 100 100 100 O2 Delivery Ventilator Ventilator Mechanical Ventilator Ventilator 08/08/16 08/08/16 08/08/16 08/08/16 16:00 17:00 18:00 18:03 Temp 97.9 97.9 Pulse 76 74 74 Resp 14 14 14 B/P 119/67 125/79 143/73 Pulse Ox 100 100 100 100 O2 Delivery Ventilator Ventilator Ventilator Ventilator 08/08/16 08/08/16 08/08/16 08/08/16 18:37 19:00 20:00 20:00 Temp 97.3 97.3 Pulse 84 79 Resp 14 15 15 B/P 143/73 142/78 Pulse Ox 100 100 100 O2 Delivery Ventilator Ventilator Mechanical Ventilator Ventilator 08/08/16 08/08/16 08/08/16 08/08/16 20:12 21:00 21:43 22:00 Pulse 69 86 Resp 22 16 17 B/P 160/70 140/76 Pulse Ox 100 100 100 100 O2 Delivery Ventilator Ventilator Ventilator 08/08/16 08/08/16 08/08/16 08/09/16 22:41 22:55 23:00 00:00 Pulse 74 Resp 15 14 B/P 144/77 Pulse Ox 100 100 100 O2 Delivery Ventilator Ventilator Ventilator Mechanical Ventilator 08/09/16 08/09/16 08/09/16 08/09/16 00:00 01:00 01:34 02:00 Temp 96.6 96.6 Pulse 74 90 88 Resp 18 18 13 B/P 148/82 134/70 145/83 Pulse Ox 100 100 99 100 O2 Delivery Ventilator Ventilator Ventilator Ventilator 08/09/16 08/09/16 08/09/16 08/09/16 02:31 03:00 03:42 04:00 Temp 97.3 97.3 Pulse 85 97 Resp 14 13 14 B/P 119/78 150/77 Pulse Ox 100 100 99 100 O2 Delivery Ventilator Ventilator Ventilator 08/09/16 08/09/16 08/09/16 08/09/16 04:00 05:00 05:00 06:00 Pulse 100 102 Resp 14 16 B/P 105/74 128/78 Pulse Ox 99 99 100 O2 Delivery Mechanical Ventilator Ventilator Ventilator Ventilator 08/09/16 08/09/16 08/09/16 08/09/16 06:39 07:00 07:09 08:00 Temp 97.9 97.9 Pulse 105 98 Resp 14 14 14 16 B/P 93/61 123/79 Pulse Ox 100 100 100 100 O2 Delivery Ventilator Ventilator Ventilator Ventilator 08/09/16 08/09/16 08/09/16 08/09/16 08:00 08:40 08:45 09:00 Pulse 108 Resp 17 B/P 131/86 Pulse Ox 100 100 O2 Delivery Mechanical Ventilator Ventilator Ventilator Ventilator 08/09/16 08/09/16 08/09/16 08/09/16 09:19 09:49 10:00 11:00 Pulse 106 110 Resp 19 14 16 20 B/P 126/73 154/78 Pulse Ox 100 100 100 100 O2 Delivery Ventilator Ventilator Ventilator Ventilator Intake and Output 08/08/16 08/08/16 08/09/16 15:00 23:00 07:00 Intake Total 27 ml 745 ml 810 ml Output Total 1990 ml 1895 ml 905 ml Balance -1963 ml -1150 ml -95 ml BENITA LUTZ MD Aug 09, 2016 11:36
[2016-08-09] MEDS ORDERED: IV DEXTROSE 10% 1,000 ML IV SCH (11:45)
[2016-08-09 11:54] LABS: INR 1.3 (0.8-1.1); PROTHROMBIN TIME PATIENT 15.3 SEC (11.7-14.0)
[2016-08-09] MEDS ORDERED: IV DEXTROSE 5 %-0.2 % NACL 1,000 ML IV SCH (12:00)
[2016-08-09] MEDS: DAPTOMYCIN IV SCH (13:44)
[2016-08-09] MEDS: TPN PER PHARMACY MC PRN (14:12)
[2016-08-09 16:43] LABS: HCO3 ABG 28 mmol/L (21-28); PCO2 ABG 33 mmHg (35-46); PO2 ABG 119 mmHg (65-108); SAT O2 ABG 98 % (92-99)
[2016-08-09 16:46] LABS: PH ABG 7.55 (7.35-7.45)
[2016-08-09 16:46] LABS: CALCIUM 9.2 mg/dL (8.5-10.1); CREATININE 1.2 mg/dL (0.6-1.0); GFR 55.3; POTASSIUM 3.8 mmol/L (3.5-5.1)
[2016-08-09 16:47] LABS: FIO2 ABG 35
--- NOTE | 2016-08-09 19:38 | PDOC ---
Provider Note Provider Note Covering for Dr. Jasmine. She continues to be intubated. Blood pressure at times is elevated. She has not had dialysis for the last 2 days. Do not plan on treating the occasional elevated blood pressures since it may normalize tomorrow when dialyzed. Dr. Jasmine returns tomorrow. SAMMIE CHRISTENSEN MD Aug 09, 2016 19:38
[2016-08-09] MEDS: DEXTROSE 70% IV SCH ×10 (23:02)
[2016-08-09] MEDS: [UNRECOGNIZED DRUG - OTHER] IV SCH ×10 (23:02)
[2016-08-09] MEDS: TOTAL PARENTERAL NUTRITION IV SCH ×10 (23:02)
[2016-08-09] MEDS: AMINO ACID IV SCH ×10 (23:02)
--- NOTE | 2016-08-09 23:41 | PDOC ---
Provider Note Provider Note RENAL F/U : KYLIE S : Doing fair Intubated. O : VSS Afebrile. Neck : Supple. Lungs : Non labored. CVS : RRR ABD : Portly, benign appearing. No distention. Ext. : No major edema. Labs reviewed. A/P: ARF : Multifactorial. ATN. BUN and Cr sl worse. HD in am. EDEMA: DC LASIX gtt with rising BUN and Na ABD PAIN/ ENETROCUTANEOUS FISTULA : See IVF orders. Supportive care Watch labs. CPM. J LUIS ESPINAL MD Aug 09, 2016 23:41
[2016-08-10] VITALS (23 sets, daily range): BP systolic 75–173; BP diastolic 48–96
[2016-08-10] MEDS: MICAFUNGIN 100 MG in IV DEXTROSE 5% 100 ML IV SCH (01:05)
[2016-08-10 05:57] LABS: BASO # 0.1 x10^3/uL (0.0-0.2); BASO % 1 % (0-3); EOS % 1 % (0-3); HEMATOCRIT 26.5 % (36.0-47.0); HEMOGLOBIN 8.3 g/dL (12.0-15.5); LYMPH # 1.1 x10^3/uL (1.0-4.8); LYMPH % 15 % (24-48); MEAN CORPUSCULAR HEMOGLOBIN 26 pg (25-35); MEAN CORPUSCULAR HGB CONC 31 g/dL (31-37); MEAN CORPUSCULAR VOLUME 82 fL (79-100); MONO % 9 % (0-9); NEUT % 74 % (31-73); PLATELET COUNT 71 x10^3/uL (140-400); RED BLOOD COUNT 3.22 x10^6/uL (3.50-5.40); RED CELL DISTRIBUTION WIDTH 21.8 % (11.5-14.5); WHITE BLOOD COUNT 7.6 x10^3/uL (4.0-11.0)
[2016-08-10] MEDS: INSULIN ASPART 300 UNITS/3 ML INSULN.PEN SQ SCH ×4 (06:00→18:00)
[2016-08-10 06:17] LABS: CALCIUM 9.4 mg/dL (8.5-10.1); GFR 68.2; POTASSIUM 3.4 mmol/L (3.5-5.1)
--- NOTE | 2016-08-10 07:29 | PDOC ---
Infectious Disease Note Subjective Subjective Intubated. TPN No fever ROS ROS Unobtainable Vital Sign Vital Signs Vital Signs Date Time Temp Pulse Resp B/P Pulse Ox O2 Delivery O2 Flow Rate FiO2 08/10/16 06:00 88 14 154/76 100 Ventilator 08/10/16 04:00 98.2 98.2 Physical Exam PHYSICAL EXAM GENERAL: In bedNAD HEENT: icterus. ETT. OGT LUNGS: Clear HEART: S1S2, regular, tachy ABD: Soft, NT, BS present. Ostomy bags : [place] EXT: BUE edema. no cyanosis BACK ROLLER: Sleepy SKIN: No rash RIJ/HDC. clean Labs Lab Laboratory Tests Test 08/09/16 11:04 08/09/16 11:30 08/09/16 16:20 08/09/16 16:30 Glucose (Fingerstick) 142mg/dL (70-99) Prothrombin Time 15.3SEC (11.7-14.0) Prothromb Time International Ratio 1.3 (0.8-1.1) Activated Partial Thromboplast Time 37SEC (24-38) Fibrinogen 231mg/dL (200-440) O2 Saturation 98% (92-99) Arterial Blood pH 7.55 (7.35-7.45) Arterial Blood pCO2 at Patient Temp 33mmHg (35-46) Arterial Blood pO2 at Patient Temp 119mmHg (65-108) Arterial Blood HCO3 28mmol/L (21-28) Arterial Blood Base Excess 6mmol/L (-3-3) FiO2 35 Sodium Level 153mmol/L (136-145) Potassium Level 3.8mmol/L (3.5-5.1) Chloride Level 112mmol/L (98-107) Carbon Dioxide Level 34mmol/L (21-32) Anion Gap 7 (6-14) Blood Urea Nitrogen 83mg/dL (7-20) Creatinine 1.2mg/dL (0.6-1.0) Estimated GFR (Cockcroft-Gault) 55.3 Glucose Level 153mg/dL (70-99) Calcium Level 9.2mg/dL (8.5-10.1) Test 08/10/16 00:02 08/10/16 05:45 08/10/16 05:47 Glucose (Fingerstick) 132mg/dL (70-99) 109mg/dL (70-99) White Blood Count 7.6x10^3/uL (4.0-11.0) Red Blood Count 3.22x10^6/uL (3.50-5.40) Hemoglobin 8.3g/dL (12.0-15.5) Hematocrit 26.5% (36.0-47.0) Mean Corpuscular Volume 82fL (79-100) Mean Corpuscular Hemoglobin 26pg (25-35) Mean Corpuscular Hemoglobin Concent 31g/dL (31-37) Red Cell Distribution Width 21.8% (11.5-14.5) Platelet Count 71x10^3/uL (140-400) Neutrophils (%) (Auto) 74% (31-73) Lymphocytes (%) (Auto) 15% (24-48) Monocytes (%) (Auto) 9% (0-9) Eosinophils (%) (Auto) 1% (0-3) Basophils (%) (Auto) 1% (0-3) Neutrophils # (Auto) 5.6x10^3uL (1.8-7.7) Lymphocytes # (Auto) 1.1x10^3/uL (1.0-4.8) Monocytes # (Auto) 0.7x10^3/uL (0.0-1.1) Eosinophils # (Auto) 0.1x10^3/uL (0.0-0.7) Basophils # (Auto) 0.1x10^3/uL (0.0-0.2) Sodium Level 154mmol/L (136-145) Potassium Level 3.4mmol/L (3.5-5.1) Chloride Level 113mmol/L (98-107) Carbon Dioxide Level 33mmol/L (21-32) Anion Gap 8 (6-14) Blood Urea Nitrogen 78mg/dL (7-20) Creatinine 1.0mg/dL (0.6-1.0) Estimated GFR (Cockcroft-Gault) 68.2 Glucose Level 117mg/dL (70-99) Calcium Level 9.4mg/dL (8.5-10.1) Micro BLOOD CULTURE Preliminary NO GROWTH AFTER 2 DAYS Enterobacter aerogenes 50,000-100,000 colony forming units per mL URINE CULTURE RES 2 Final Enterococcus faecium 50,000-100,000 colony forming units per mL ANTIMICROBIAL SUSCEPTIBILITY Final Comment S = Susceptible; I = Intermediate; R = Resistant P = Positive; N = Negative MICS are expressed in micrograms per mL Antibiotic RSLT#1 RSLT#2 RSLT#3 RSLT#4 Amoxicillin/Clavulanic Acid R Cefazolin R Cefepime R Ceftriaxone R Cefuroxime R Cephalothin R Ciprofloxacin R R Gentamicin S Imipenem R Levofloxacin R R Nitrofurantoin R I Penicillin R Piperacillin R Tetracycline R R Tobramycin S Trimethoprim/Sulfa S Vancomycin S Objective Assessment C Gl[place] sepsis - 07/27 - line removed and positive 07/29. OFF Levophed ? DIC with elevated INR - platelets - stable today Acute resp failure - intubated -some infiltrates on hydrocortisone JULIO C - getting HD for fluid removal Fever and chills- better Acute Anemia - s/p PRBCs Urine Enterobacter and Amp res Enterococcus 07/15 EC fistula Enterovesicular fistula Abdominal excoriation MDR Enterobacter and enterococcus faecium in urine Plan Plan of Care continue micafungin and daptomycin Repeat Blood cults 08/01 NGTD ECHO neg veg, 07/30 Will need Optho eval Monitor labs. await sensitivities Critically ill ABBY MOTT MD Aug 10, 2016 07:29
--- NOTE | 2016-08-10 08:07 | RAD ---
Portable chest, 08/10/2016: History: Respiratory failure Comparison is made to a study from 08/07/2016. The ET tube has its tip located well above the deborah. An NG tube extends into the stomach. A right jugular dialysis type catheter extends into the superior aspect of the right atrium. The heart size and pulmonary vascularity are normal. The lungs are clear. There is no evidence of pleural fluid. IMPRESSION: 1. Various tubes and catheters remain in place in satisfactory positions as described above. 2. No acute cardiopulmonary abnormality is detected.
[2016-08-10] MEDS: ZINC OXIDE 20% TOPICAL OINTMENT 28GM TUBE. TP SCH ×2 (08:13→20:35)
[2016-08-10] MEDS: PANTOPRAZOLE IV PUSH 40 MG VIAL. IVP SCH (08:13)
[2016-08-10] MEDS: LIDOCAINE 5% TOPICAL OINTMENT 35GM TUBE. TP SCH ×2 (08:14→20:35)
[2016-08-10] MEDS: IPRATRPIUM/ALBUTEROL 0.5/2.5MG 3 ML NEBU. NEB SCH ×4 (08:30→19:32)
--- NOTE | 2016-08-10 09:11 | PDOC ---
PROGRESS NOTES Subjective Subjective c/c - f/u of DIC Objective Objective Vital Signs Date Time Temp Pulse Resp B/P Pulse Ox O2 Delivery O2 Flow Rate FiO2 08/10/16 08:30 Ventilator 08/10/16 08:10 100 08/10/16 06:00 88 14 154/76 08/10/16 04:00 98.2 98.2 08/08/16 10:21 50.0 Intake and Output 08/10/16 07:00 Intake Total 1693 ml Output Total 2710 ml Balance -1017 ml IV Total 806 ml Other 887 ml Output Urine Total 1395 ml Drainage Total 1315 ml Physical Exam Heart: Normal S1, Normal S2 General: Alert Lungs: Clear to auscultation Assessment Assessment Problems Medical Problems: (1) Abdominal pain Status: Acute (2) Enterocutaneous fistula Status: Acute (3) Sepsis Status: Acute (4) Urinary tract infection Status: Acute (5) UTI (urinary tract infection) Status: Acute IMPRESSION AND PLAN: 1. DIC - Thrombocytopenia secondary to sepsis. In addition, there is evidence of elevated PT, PTT and decreased fibrinogen which is suggestive of disseminated intravascular coagulation. s/p cryoprecipitate infusion 08/05 and 08/06/16 and . Fibrinogen level improved to 231. No bleeding. 2. Anemia secondary to sepsis,disseminated intravascular coagulation, hemoglobin 8.3. Continue to monitor. 3. Sepsis, Judi glabrata positive. Appreciate ID management. 4. 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 5. Respiratory failure. She is on mechanical ventilation. Comment Review of Relevant I have reviewed the following items lucila (where applicable) has been applied. Labs Laboratory Tests Test 08/08/16 09:50 08/08/16 11:40 08/08/16 13:15 08/08/16 18:42 O2 Saturation 99% (92-99) Arterial Blood pH 7.51 (7.35-7.45) Arterial Blood pCO2 at Patient Temp 35mmHg (35-46) Arterial Blood pO2 at Patient Temp 185mmHg (65-108) Arterial Blood HCO3 28mmol/L (21-28) Arterial Blood Base Excess 4mmol/L (-3-3) FiO2 35 Glucose (Fingerstick) 134mg/dL (70-99) 126mg/dL (70-99) Potassium Level 3.2mmol/L (3.5-5.1) Test 08/09/16 00:18 08/09/16 05:35 08/09/16 05:42 08/09/16 11:04 Glucose (Fingerstick) 137mg/dL (70-99) 113mg/dL (70-99) 142mg/dL (70-99) White Blood Count 9.2x10^3/uL (4.0-11.0) Red Blood Count 3.31x10^6/uL (3.50-5.40) Hemoglobin 8.5g/dL (12.0-15.5) Hematocrit 27.1% (36.0-47.0) Mean Corpuscular Volume 82fL (79-100) Mean Corpuscular Hemoglobin 26pg (25-35) Mean Corpuscular Hemoglobin Concent 31g/dL (31-37) Red Cell Distribution Width 21.1% (11.5-14.5) Platelet Count 68x10^3/uL (140-400) Neutrophils (%) (Auto) 72% (31-73) Lymphocytes (%) (Auto) 17% (24-48) Monocytes (%) (Auto) 7% (0-9) Eosinophils (%) (Auto) 3% (0-3) Basophils (%) (Auto) 1% (0-3) Neutrophils # (Auto) 6.5x10^3uL (1.8-7.7) Lymphocytes # (Auto) 1.6x10^3/uL (1.0-4.8) Monocytes # (Auto) 0.7x10^3/uL (0.0-1.1) Eosinophils # (Auto) 0.2x10^3/uL (0.0-0.7) Basophils # (Auto) 0.1x10^3/uL (0.0-0.2) Platelet Estimate Decreased (ADEQUATE) Giant Platelets Present Hypochromasia Present Anisocytosis Mod Sodium Level 151mmol/L (136-145) Potassium Level 3.7mmol/L (3.5-5.1) Chloride Level 110mmol/L (98-107) Carbon Dioxide Level 36mmol/L (21-32) Anion Gap 5 (6-14) Blood Urea Nitrogen 76mg/dL (7-20) Creatinine 1.1mg/dL (0.6-1.0) Estimated GFR (Cockcroft-Gault) 61.1 Glucose Level 110mg/dL (70-99) Lactic Acid Level 0.9mmol/L (0.4-2.0) Calcium Level 9.0mg/dL (8.5-10.1) Magnesium Level 2.4mg/dL (1.8-2.4) Vancomycin Level Trough < 0.8mcg/mL (10.0-20.0) Vancomycin Last Dose Date 08/08/16 Vancomycin Last Dose Time 1600 Test 08/09/16 11:30 08/09/16 16:20 08/09/16 16:30 08/10/16 00:02 Prothrombin Time 15.3SEC (11.7-14.0) Prothromb Time International Ratio 1.3 (0.8-1.1) Activated Partial Thromboplast Time 37SEC (24-38) Fibrinogen 231mg/dL (200-440) O2 Saturation 98% (92-99) Arterial Blood pH 7.55 (7.35-7.45) Arterial Blood pCO2 at Patient Temp 33mmHg (35-46) Arterial Blood pO2 at Patient Temp 119mmHg (65-108) Arterial Blood HCO3 28mmol/L (21-28) Arterial Blood Base Excess 6mmol/L (-3-3) FiO2 35 Sodium Level 153mmol/L (136-145) Potassium Level 3.8mmol/L (3.5-5.1) Chloride Level 112mmol/L (98-107) Carbon Dioxide Level 34mmol/L (21-32) Anion Gap 7 (6-14) Blood Urea Nitrogen 83mg/dL (7-20) Creatinine 1.2mg/dL (0.6-1.0) Estimated GFR (Cockcroft-Gault) 55.3 Glucose Level 153mg/dL (70-99) Calcium Level 9.2mg/dL (8.5-10.1) Glucose (Fingerstick) 132mg/dL (70-99) Test 08/10/16 05:45 08/10/16 05:47 White Blood Count 7.6x10^3/uL (4.0-11.0) Red Blood Count 3.22x10^6/uL (3.50-5.40) Hemoglobin 8.3g/dL (12.0-15.5) Hematocrit 26.5% (36.0-47.0) Mean Corpuscular Volume 82fL (79-100) Mean Corpuscular Hemoglobin 26pg (25-35) Mean Corpuscular Hemoglobin Concent 31g/dL (31-37) Red Cell Distribution Width 21.8% (11.5-14.5) Platelet Count 71x10^3/uL (140-400) Neutrophils (%) (Auto) 74% (31-73) Lymphocytes (%) (Auto) 15% (24-48) Monocytes (%) (Auto) 9% (0-9) Eosinophils (%) (Auto) 1% (0-3) Basophils (%) (Auto) 1% (0-3) Neutrophils # (Auto) 5.6x10^3uL (1.8-7.7) Lymphocytes # (Auto) 1.1x10^3/uL (1.0-4.8) Monocytes # (Auto) 0.7x10^3/uL (0.0-1.1) Eosinophils # (Auto) 0.1x10^3/uL (0.0-0.7) Basophils # (Auto) 0.1x10^3/uL (0.0-0.2) Sodium Level 154mmol/L (136-145) Potassium Level 3.4mmol/L (3.5-5.1) Chloride Level 113mmol/L (98-107) Carbon Dioxide Level 33mmol/L (21-32) Anion Gap 8 (6-14) Blood Urea Nitrogen 78mg/dL (7-20) Creatinine 1.0mg/dL (0.6-1.0) Estimated GFR (Cockcroft-Gault) 68.2 Glucose Level 117mg/dL (70-99) Calcium Level 9.4mg/dL (8.5-10.1) Glucose (Fingerstick) 109mg/dL (70-99) Laboratory Tests Test 08/09/16 11:04 08/09/16 11:30 08/09/16 16:20 08/09/16 16:30 Glucose (Fingerstick) 142mg/dL (70-99) Prothrombin Time 15.3SEC (11.7-14.0) Prothromb Time International Ratio 1.3 (0.8-1.1) Activated Partial Thromboplast Time 37SEC (24-38) Fibrinogen 231mg/dL (200-440) O2 Saturation 98% (92-99) Arterial Blood pH 7.55 (7.35-7.45) Arterial Blood pCO2 at Patient Temp 33mmHg (35-46) Arterial Blood pO2 at Patient Temp 119mmHg (65-108) Arterial Blood HCO3 28mmol/L (21-28) Arterial Blood Base Excess 6mmol/L (-3-3) FiO2 35 Sodium Level 153mmol/L (136-145) Potassium Level 3.8mmol/L (3.5-5.1) Chloride Level 112mmol/L (98-107) Carbon Dioxide Level 34mmol/L (21-32) Anion Gap 7 (6-14) Blood Urea Nitrogen 83mg/dL (7-20) Creatinine 1.2mg/dL (0.6-1.0) Estimated GFR (Cockcroft-Gault) 55.3 Glucose Level 153mg/dL (70-99) Calcium Level 9.2mg/dL (8.5-10.1) Test 08/10/16 00:02 08/10/16 05:45 08/10/16 05:47 Glucose (Fingerstick) 132mg/dL (70-99) 109mg/dL (70-99) White Blood Count 7.6x10^3/uL (4.0-11.0) Red Blood Count 3.22x10^6/uL (3.50-5.40) Hemoglobin 8.3g/dL (12.0-15.5) Hematocrit 26.5% (36.0-47.0) Mean Corpuscular Volume 82fL (79-100) Mean Corpuscular Hemoglobin 26pg (25-35) Mean Corpuscular Hemoglobin Concent 31g/dL (31-37) Red Cell Distribution Width 21.8% (11.5-14.5) Platelet Count 71x10^3/uL (140-400) Neutrophils (%) (Auto) 74% (31-73) Lymphocytes (%) (Auto) 15% (24-48) Monocytes (%) (Auto) 9% (0-9) Eosinophils (%) (Auto) 1% (0-3) Basophils (%) (Auto) 1% (0-3) Neutrophils # (Auto) 5.6x10^3uL (1.8-7.7) Lymphocytes # (Auto) 1.1x10^3/uL (1.0-4.8) Monocytes # (Auto) 0.7x10^3/uL (0.0-1.1) Eosinophils # (Auto) 0.1x10^3/uL (0.0-0.7) Basophils # (Auto) 0.1x10^3/uL (0.0-0.2) Sodium Level 154mmol/L (136-145) Potassium Level 3.4mmol/L (3.5-5.1) Chloride Level 113mmol/L (98-107) Carbon Dioxide Level 33mmol/L (21-32) Anion Gap 8 (6-14) Blood Urea Nitrogen 78mg/dL (7-20) Creatinine 1.0mg/dL (0.6-1.0) Estimated GFR (Cockcroft-Gault) 68.2 Glucose Level 117mg/dL (70-99) Calcium Level 9.4mg/dL (8.5-10.1) Microbiology 08/01/16 Blood Culture - Final, Complete NO GROWTH AFTER 5 DAYS 07/15/16 Urine Culture - Final, Complete 07/15/16 Urine Culture Result 1 (ROYA) - Final, Complete 07/15/16 Urine Culture Result 2 (ROYA) - Final, Complete 07/15/16 Antimicrobic Susceptibility - Final, Complete 07/29/16 Aerobic Culture - Final, Complete 07/29/16 Aerobic Culture Result 1 (ROYA) - Final, Complete Medications Current Medications Piperacillin Sod/ Tazobactam Sod/ Sodium Chloride (Zosyn/Iv Sodium Chloride 0.9 % 100ml) 100 ml @ 200 mls/hr 1X ONCE IV Last administered on 07/15/16 22:56; Start 07/15/16 at 22:00; Stop 07/15/16 at 22:29; Status DC Fentanyl Citrate 50 mcg 50 mcg PRN Q15MIN PRN IV PAIN GREATER THAN 3/10 Last administered on 07/16/16 00:30; Start 07/15/16 at 21:45; Stop 07/16/16 at 02:00; Status DC Sodium Chloride 1,000 ml @ 1,000 mls/hr 1X ONCE IV Last administered on 21:59; Start 07/15/16 at 22:00; Stop 07/15/16 at 22:59; Status DC Sodium Chloride (Iv Sodium Chloride 0.9% 500ml Bag) 500 ml @ 500 mls/hr 1X ONCE IV Last administered on 07/15/16 22:00; Start 07/15/16 at 22:00; Stop at 22:59; Status DC Ondansetron HCl (Zofran) 4 mg PRN Q8HRS PRN IV NAUSEA/VOMITING; Start 07/15/16 at 23:30; Stop 07/16/16 at 08:52; Status DC Fentanyl Citrate 50 mcg 50 mcg PRN Q2HR PRN IV SEVERE PAIN Last administered on 07/16/16 08:10; Start 07/15/16 at 23:30; Stop 07/16/16 at 08:52; Status DC Sodium Chloride (Iv Sodium Chloride 0.9% 1000ml Bag) 1,000 ml @ 150 mls/hr Q6H40M IV Last administered on 07/15/16 02:00; Start 07/15/16 at 23:45; Stop 07/16/16 at 08:52; Status DC Acetaminophen (Tylenol) 650 mg PRN Q4HRS PRN PO FEVER; Start 07/15/16 at 23:30; Stop 07/16/16 at 23:29; Status DC Info (Do NOT chart on this placeholder) 1 each PRN DAILY PRN MC NEEDS VERIFICATION; Start 07/16/16 at 03:00; Status Cancel Acetaminophen 650 mg 650 mg PRN Q4HRS PRN PO MILD PAIN / TEMP Last administered on 07/28/16 07:42; Start 07/16/16 at 08:45; Stop 07/29/16 at 08:33 ; Status DC Piperacillin Sod/ Tazobactam Sod 3.375 gm/Sodium Chloride 50 ml @ 100 mls/hr Q6HRS IV Last administered on 07/18/16 05:50; Start 07/16/16 at 10:00; Stop 07/18 at 13:28; Status DC Linezolid (Zyvox Premix) 300 ml @ 300 mls/hr Q12HR IV Last administered on 07/18 08:34; Start 07/16/16 at 10:00; Stop 07/18/16 at 13:28; Status DC Hydromorphone HCl (Dilaudid) 2 mg PRN Q4HRS PRN IV MODERATE PAIN Last administered on 08/09/16 06:39; Start 07/16/16 at 08:45; Stop 08/09/16 at 17:35 ; Status DC Hydromorphone HCl (Dilaudid) 4 mg PRN Q4HRS PRN IV SEVERE PAIN Last administered on 07/30/16 09:23; Start 07/16/16 at 08:45; Stop 07/31/16 at 15:01 ; Status DC Pantoprazole Sodium (Protonix) 40 mg DAILYAC PO Last administered on 07/27/16 11:11; Start 07/16/16 at 09:30; Stop 07/29/16 at 08:44; Status DC Hyoscyamine (Anaspaz) 0.125 mg Q6HRS PO Last administered on 07/20/16 05:20; Start 07/16/16 at 12:00; Stop 07/20/16 at 08:58; Status DC Phenazopyridine HCl (Pyridium) 200 mg TID PO Last administered on 07/20/16 08: 25; Start 07/16/16 at 09:30; Stop 07/20/16 at 08:58; Status DC Lorazepam (Ativan) 0.5 mg PRN BID PRN PO ANXIETY / AGITATION Last administered on 07/29/16 02:16; Start 07/16/16 at 08:45; Stop 07/31/16 at 15:01; Status DC Simethicone (Gas-X) 80 mg PRN Q4HRS PRN PO GAS / BLOATING Last administered on 07/24/16 22:30; Start 07/16/16 at 08:45; Stop 07/31/16 at 15:01; Status DC Zolpidem Tartrate 5 mg 5 mg PRN QHS PRN PO INSOMNIA Last administered on 23:14; Start 07/16/16 at 08:45; Stop 07/31/16 at 15:01; Status DC Potassium Chloride/Dextrose/ Sod Cl 1,000 ml @ 80 mls/hr [id number] IV Last administered on 07/16/16 10:54; Start 07/16/16 at 09:30; Stop 07/16/16 at 21:59; Status DC Fluconazole/ Sodium Chloride (Diflucan 200mg/ 100ml Premix) 100 ml @ 100 mls/ hr Q24H IV Last administered on 07/18/16 11:43; Start 07/16/16 at 11:00; Stop at 13:28; Status DC Info 1 each 1 each PRN DAILY PRN MC SEE COMMENTS Last administered on 12:41; Start 07/16/16 at 10:00; Stop 08/01/16 at 11:24; Status DC Sodium Chloride 220 meq/Sodium Acetate 90 meq/ Potassium Chloride 50 meq/ Potassium Acetate 15 meq/Potassium Phosphate 10 mmol/ Magnesium Sulfate 50 meq/ Calcium Gluconate 6 meq/ Multivitamins/ Minerals 10 ml/ Chromium/Copper/ Manganese/Seleni/ Zn 1 ml/Total Parenteral Nutrition/Amino Acids/Dextro... 1, 920 ml @ 80 mls/hr TPN CONT IV ; Start 07/16/16 at 22:00; Stop 07/16/16 at 22:00 ; Status DC Sodium Chloride/ Sodium Acetate/ Potassium Chloride/ Potassium Acetate/ Potassium Phosphate/ Magnesium Sulfate/ Calcium Gluconate/ Multivitamins/ Minerals/Chromium/ Copper/Manganese/ Seleni/Zn/Total Parenteral Nutrition/Amino Acids/Dextrose/ Fat Emulsion Intravenous (Sodium Chlori... 1,820 ml @ 75.833 mls/ hr TPN CONT IV Last administered on 07/16/16 21:03; Start 07/16/16 at 22: 00; Stop 07/17/16 at 21:59; Status DC Ondansetron HCl (Zofran) 4 mg PRN Q6HRS PRN IV NAUSEA/VOMITING Last administered on 07/21/16 08:48; Start 07/16/16 at 17:15; Stop 07/31/16 at 15:01; Status DC Diphenhydramine HCl (Benadryl) 25 mg PRN Q6HRS PRN PO ITCHING Last administered on 07/25/16 23:38; Start 07/16/16 at 17:45; Stop 07/31/16 at 15:01 ; Status DC Lidocaine (Xylocaine) 1 sang BID TP Last administered on 08/10/16 08:14; Start 07/17/16 at 09:00 Zinc Oxide 1 sang 1 sang BID TP Last administered on 08/10/16 08:13; Start at 09:30 Sodium Chloride/ Sodium Acetate/ Potassium Chloride/ Potassium Acetate/ Potassium Phosphate/ Magnesium Sulfate/ Calcium Gluconate/ Multivitamins/ Minerals/Chromium/ Copper/Manganese/ Seleni/Zn/Total Parenteral Nutrition/Amino Acids/Dextrose/ Fat Emulsion Intravenous (Sodium Chlori... 1,920 ml @ 80 mls/ hr TPN CONT IV Last administered on 07/17/16 22:13; Start 07/17/16 at 22:00; Stop 07/18/16 at 21:59; Status DC Furosemide 40 mg 40 mg 1X ONCE IVP Last administered on 07/18/16 11:43; Start 07/18/16 at 11:00; Stop 07/18/16 at 11:07; Status DC Sodium Chloride 220 meq/Sodium Acetate 90 meq/ Potassium Chloride 50 meq/ Potassium Acetate 15 meq/Potassium Phosphate 10 mmol/ Magnesium Sulfate 50 meq/ Calcium Gluconate 3 meq/ Multivitamins/ Minerals 10 ml/ Chromium/Copper/ Manganese/Seleni/ Zn 1 ml/Total Parenteral Nutrition/Amino Acids/Dextro... 1, 920 ml @ 80 mls/hr TPN CONT IV Last administered on 07/19/16 00:03; Start 07/18/16 at 22:00; Stop 07/19/16 at 21:59; Status DC Meropenem 1 gm/ Sodium Chloride 100 ml @ 200 mls/hr Q8HRS IV Last administered on 07/20/16 05:21; Start 07/18/16 at 14:00; Stop 07/20/16 at 11:25; Status DC Micafungin Sodium 100 mg/Dextrose 100 ml @ 100 mls/hr Q24H IV Last administered on 07/19/16 15:05; Start 07/18/16 at 14:00; Stop 07/20/16 at 11:25; Status DC Daptomycin/Sodium Chloride (Cubicin/Iv Sodium Chloride 0.9% 50ml) 50 ml @ 100 mls/hr Q24H IV Last administered on 07/19/16 16:56; Start 07/18/16 at 15:00; Stop 07/20/16 at 11:25; Status DC Alteplase, Recombinant (Cathflo) 2 mg 1X ONCE INT CAT Last administered on 07/19 06:24; Start 07/19/16 at 07:00; Stop 07/19/16 at 07:01; Status DC Gentamicin Sulfate 1 each 1 each PRN DAILY PRN MC SEE COMMENTS Last administered on 07/25/16 15:31; Start 07/19/16 at 12:15; Stop 07/25/16 at 16:14 ; Status DC Gentamicin Sulfate/Sodium Chloride (Iv Sodium Chloride 0.9% 100ml) 106.75 ml @ 106.75 mls/hr Q24H IV Last administered on 07/25/16 15:31; Start 07/19/16 at 13 :00; Stop 07/25/16 at 16:12; Status DC Gentamicin Sulfate 1 each 1 each 1X ONCE MC Last administered on 07/19/16 23: 00; Start 07/19/16 at 23:00; Stop 07/19/16 at 23:01; Status DC Sodium Chloride/ Sodium Acetate/ Potassium Chloride/ Potassium Acetate/ Potassium Phosphate/ Magnesium Sulfate/ Calcium Gluconate/ Multivitamins/ Minerals/Chromium/ Copper/Manganese/ Seleni/Zn/Total Parenteral Nutrition/Amino Acids/Dextrose/ Fat Emulsion Intravenous (Sodium Chlori... 1,920 ml @ 80 mls/ hr TPN CONT IV Last administered on 07/19/16 20:51; Start 07/19/16 at 22:00; Stop 07/20/16 at 21:59; Status DC Hyoscyamine (Anaspaz) 0.125 mg PRN Q6HRS PRN PO BLADDER SPASM; Start 07/20/16 at 09:00; Stop 07/31/16 at 15:01; Status DC Phenazopyridine HCl 200 mg 200 mg PRN TID PRN PO BLADDER SPASM Last administered on 07/21/16 20:14; Start 07/20/16 at 09:00; Stop 07/31/16 at 15:01; Status DC Linezolid 300 ml @ 300 mls/hr Q12HR IV Last administered on 07/25/16 09:02; Start 07/20/16 at 12:00; Stop 07/25/16 at 16:12; Status DC Sodium Chloride 220 meq/Sodium Acetate 90 meq/ Potassium Chloride 50 meq/ Potassium Acetate 15 meq/Potassium Phosphate 10 mmol/ Magnesium Sulfate 50 meq/ Calcium Gluconate 3 meq/ Multivitamins/ Minerals 10 ml/ Chromium/Copper/ Manganese/Seleni/ Zn 1 ml/Total Parenteral Nutrition/Amino Acids/Dextro... 1, 920 ml @ 80 mls/hr TPN CONT IV Last administered on 07/20/16 21:30; Start 07/20/16 at 22:00; Stop 07/21/16 at 21:59; Status DC Sodium Chloride/ Sodium Acetate/ Potassium Chloride/ Potassium Acetate/ Potassium Phosphate/ Magnesium Sulfate/ Multivitamins/ Minerals/Chromium/ Copper /Manganese/ Seleni/Zn/Total Parenteral Nutrition/Amino Acids/Dextrose/ Fat Emulsion Intravenous (Sodium Chloride/ Potass... 1,920 ml @ 80 mls/hr TPN CONT IV Last administered on 07/21/16 22:05; Start 07/21/16 at 22:00; Stop at 21:59; Status DC Alteplase, Recombinant 2 mg 2 mg PRN DAILY PRN INT CAT INFLAMMATION Last administered on 07/27/16 11:31; Start 07/21/16 at 15:00 Sodium Chloride 220 meq/Sodium Acetate 90 meq/ Potassium Chloride 50 meq/ Potassium Acetate 15 meq/Potassium Phosphate 10 mmol/ Magnesium Sulfate 50 meq/ Multivitamins/ Minerals 10 ml/ Chromium/Copper/ Manganese/Seleni/ Zn 1 ml/Total Parenteral Nutrition/Amino Acids/Dextrose/ Fat Emuls... 1,920 ml @ 80 mls/hr TPN CONT IV Last administered on 07/22/16 20:53; Start 07/22/16 at 22:00; Stop 07/23/16 at 21:59; Status DC Sodium Chloride/ Sodium Acetate/ Potassium Chloride/ Potassium Acetate/ Potassium Phosphate/ Magnesium Sulfate/ Multivitamins/ Minerals/Chromium/ Copper /Manganese/ Seleni/Zn/Total Parenteral Nutrition/Amino Acids/Dextrose/ Fat Emulsion Intravenous (Sodium Chloride/ Potass... 1,920 ml @ 80 mls/hr TPN CONT IV Last administered on 07/23/16 21:16; Start 07/23/16 at 22:00; Stop 07/24 at 21:59; Status DC Gentamicin Sulfate 1 each 1 each 1X ONCE MC ; Start 07/23/16 at 22:00; Stop 07/23 at 22:01; Status Cancel Sodium Chloride/ Sodium Acetate/ Potassium Chloride/ Potassium Acetate/ Potassium Phosphate/ Magnesium Sulfate/ Multivitamins/ Minerals/Chromium/ Copper /Manganese/ Seleni/Zn/Total Parenteral Nutrition/Amino Acids/Dextrose/ Fat Emulsion Intravenous (Sodium Chloride/ Potass... 1,920 ml @ 80 mls/hr TPN CONT IV Last administered on 07/24/16 21:15; Start 07/24/16 at 22:00; Stop 04/30 at 21:59; Status DC Gentamicin Sulfate 1 each 1X ONCE MC ; Start 07/25/16 at 12:30; Stop 07/25/16 at 12:31; Status Cancel Amlodipine Besylate 5 mg 5 mg DAILY PO Last administered on 07/27/16 11:12; Start 07/25/16 at 12:00; Stop 07/29/16 at 08:44; Status DC Sodium Chloride 220 meq/Sodium Acetate 90 meq/ Potassium Chloride 30 meq/ Potassium Acetate 15 meq/Potassium Phosphate 10 mmol/ Magnesium Sulfate 50 meq/ Multivitamins/ Minerals 10 ml/ Chromium/Copper/ Manganese/Seleni/ Zn 1 ml/Total Parenteral Nutrition/Amino Acids/Dextrose/ Fat Emuls... 1,920 ml @ 80 mls/hr TPN CONT IV Last administered on 07/25/16 22:25; Start 07/25/16 at 22:00; Stop 07/26/16 at 21:59; Status DC Sodium Chloride/ Sodium Acetate/ Potassium Chloride/ Potassium Acetate/ Potassium Phosphate/ Magnesium Sulfate/ Multivitamins/ Minerals/Chromium/ Copper /Manganese/ Seleni/Zn/Total Parenteral Nutrition/Amino Acids/Dextrose/ Fat Emulsion Intravenous (Sodium Chloride/ Potass... 1,920 ml @ 80 mls/hr TPN CONT IV Last administered on 07/26/16 23:16; Start 07/26/16 at 22:00; Stop at 21:59; Status DC Furosemide 20 mg 20 mg 1X ONCE IVP Last administered on 07/27/16 11:31; Start 07/27/16 at 09:00; Stop 07/27/16 at 09:01; Status DC Daptomycin 340 mg/ Sodium Chloride 50 ml @ 100 mls/hr Q24H IV Last administered on 07/29/16 15:05; Start 07/27/16 at 13:00; Stop 07/30/16 at 07:25 ; Status DC Piperacillin Sod/ Tazobactam Sod 3.375 gm/Sodium Chloride 50 ml @ 100 mls/hr Q6HRS IV Last administered on 07/30/16 05:30; Start 07/27/16 at 12:30; Stop at 07:25; Status DC Fluconazole/ Sodium Chloride 100 ml @ 100 mls/hr Q24H IV Last administered on 07/28/16 13:32; Start 07/27/16 at 13:00; Stop 07/29/16 at 00:53; Status DC Sodium Chloride 1,000 ml @ 1,000 mls/hr 1X ONCE IV Last administered on 12:34; Start 07/27/16 at 12:30; Stop 07/27/16 at 13:29; Status DC Sodium Chloride 220 meq/Sodium Acetate 90 meq/ Potassium Chloride 30 meq/ Potassium Acetate 15 meq/Potassium Phosphate 10 mmol/ Magnesium Sulfate 45 meq/ Multivitamins/ Minerals 10 ml/ Chromium/Copper/ Manganese/Seleni/ Zn 1 ml/Total Parenteral Nutrition/Amino Acids/Dextrose/ Fat Emuls... 1,920 ml @ 80 mls/hr TPN CONT IV Last administered on 07/27/16 22:38; Start 07/27/16 at 22:00; Stop 07/28/16 at 21:59; Status DC Sodium Chloride (Iv Sodium Chloride 0.9% 1000ml Bag) 1,000 ml @ 45 mls/hr [id number] IV Last administered on 07/28/16 03:24; Start 07/27/16 at 17:00; Stop 07/28/16 at 10:27; Status DC Acetaminophen 650 mg 650 mg PRN Q6HRS PRN ME fever Last administered on 03:57; Start 07/27/16 at 16:30; Stop 07/29/16 at 08:33; Status DC Sodium Chloride 1,000 ml @ 427.5 mls/ hr Q2H21M IV Last administered on 19:30; Start 07/27/16 at 19:30; Stop 07/27/16 at 23:30; Status DC Sodium Chloride 220 meq/Sodium Acetate 90 meq/ Potassium Chloride 30 meq/ Potassium Acetate 15 meq/Potassium Phosphate 10 mmol/ Magnesium Sulfate 45 meq/ Multivitamins/ Minerals 10 ml/ Chromium/Copper/ Manganese/Seleni/ Zn 1 ml/Total Parenteral Nutrition/Amino Acids/Dextrose/ Fat Emuls... 1,920 ml @ 80 mls/hr TPN CONT IV Last administered on 07/28/16 21:43; Start 07/28/16 at 22:00; Stop 07/29/16 at 21:59; Status DC Micafungin Sodium/ Dextrose (Mycamine) 100 ml @ 100 mls/hr Q24H IV Last administered on 08/10/16 01:05; Start 07/29/16 at 01:00 Lorazepam (Ativan) 0.05 mg PRN Q4HRS PRN IV ANXIETY / AGITATION; Start at 02:30; Stop 07/29/16 at 02:48; Status DC Lorazepam (Ativan) 0.5 mg PRN Q4HRS PRN IV ANXIETY / AGITATION Last administered on 08/09/16 17:19; Start 07/29/16 at 03:00 Acetaminophen (Tylenol) 650 mg PRN Q4HRS PRN ME MILD PAIN / TEMP; Start at 08:30 Ketorolac Tromethamine (Toradol) 30 mg PRN Q6HRS PRN IV PAIN/FEVER Last administered on 07/30/16 00:50; Start 07/29/16 at 08:30; Stop 07/30/16 at 13:01 ; Status DC Pantoprazole Sodium 40 mg 40 mg DAILYAC IVP Last administered on 08/10/16 08: 13; Start 07/29/16 at 09:00 Sodium Chloride 1,000 ml @ 45 mls/hr [id number] IV Last administered on 09:17; Start 07/29/16 at 08:45; Stop 07/31/16 at 15:01; Status DC Sodium Chloride/ Sodium Acetate/ Potassium Chloride/ Potassium Acetate/ Potassium Phosphate/ Magnesium Sulfate/ Multivitamins/ Minerals/Chromium/ Copper /Manganese/ Seleni/Zn/Total Parenteral Nutrition/Amino Acids/Dextrose/ Fat Emulsion Intravenous (Sodium Chloride/ Potass... 1,920 ml @ 80 mls/hr TPN CONT IV Last administered on 07/29/16 22:06; Start 07/29/16 at 22:00; Stop at 21:59; Status DC Lidocaine/Sodium Bicarbonate 20 ml 20 ml STK-MED ONCE IJ ; Start 07/29/16 at 13: 13; Stop 07/29/16 at 13:14; Status DC Heparin Sodium/ Sodium Chloride 500 ml @ As Directed STK-MED ONCE .ROUTE ; Start 07/29/16 at 13:13; Stop 07/29/16 at 13:14; Status DC Lidocaine/ Epinephrine (Xylocaine 1%-Epi 1:100,000) 20 ml STK-MED ONCE .ROUTE ; Start 07/29/16 at 13:22; Stop 07/29/16 at 13:23; Status DC Midazolam HCl (Versed) 5 mg STK-MED ONCE .ROUTE ; Start 07/29/16 at 13:32; Stop 07/29/16 at 13:33; Status DC Fentanyl Citrate (Fentanyl 5ml Vial) 250 mcg STK-MED ONCE .ROUTE ; Start at 13:32; Stop 07/29/16 at 13:33; Status DC Heparin Sodium/ Sodium Chloride 1,000 unit 1X ONCE IART Last administered on 13:45; Start 07/29/16 at 13:45; Stop 07/29/16 at 13:48; Status DC Midazolam HCl (Versed) 5 mg 1X ONCE IV Last administered on 07/29/16 13:45; Start 07/29/16 at 13:45; Stop 07/29/16 at 13:48; Status DC Fentanyl Citrate (Fentanyl 5ml Vial) 250 mcg 1X ONCE IV Last administered on 13:45; Start 07/29/16 at 13:45; Stop 07/29/16 at 13:48; Status DC Lidocaine/ Epinephrine 20 ml 20 ml 1X ONCE IJ Last administered on 07/29/16 13:45; Start 07/29/16 at 13:45; Stop 07/29/16 at 13:48; Status DC Sodium Chloride 220 meq/Sodium Acetate 90 meq/ Potassium Chloride 15 meq/ Potassium Acetate 30 meq/Potassium Phosphate 10 mmol/ Magnesium Sulfate 45 meq/ Multivitamins/ Minerals 10 ml/ Chromium/Copper/ Manganese/Seleni/ Zn 1 ml/Total Parenteral Nutrition/Amino Acids/Dextrose/ Fat Emuls... 1,920 ml @ 80 mls/hr TPN CONT IV ; Start 07/30/16 at 22:00; Stop 07/31/16 at 21:59; Status DC Norepinephrine Bitartrate 8 mg/ Sodium Chloride 258 ml @ 1.93 mls/hr 1X ONCE IV Last administered on 07/30/16 11:17; Start 07/30/16 at 11:15; Stop at 15:43; Status DC Norepinephrine Bitartrate/Sodium Chloride (Levophed Vial/ Iv Sodium Chloride 0.9 % 250ml) 258 ml @ 0 mls/hr CONT PRN IV SEE I/O RECORD Last administered on 08/02 19:54; Start 07/30/16 at 11:15; Stop 08/04/16 at 09:29; Status DC Furosemide 60 mg 60 mg 1X ONCE IVP Last administered on 07/30/16 11:14; Start 07/30/16 at 11:15; Stop 07/30/16 at 11:16; Status DC Sodium Chloride 500 ml @ 500 mls/hr Q1H IV Last administered on 07/30/16 17: 04; Start 07/30/16 at 14:30; Stop 07/30/16 at 15:29; Status DC Albumin Human 100 ml @ 100 mls/hr Q8HRS IV Last administered on 07/31/16 05: 37; Start 07/30/16 at 14:30; Stop 07/31/16 at 06:59; Status DC Furosemide/Sodium Chloride (Lasix Drip/Iv Sodium Chloride 0.9% 100ml) 100 ml @ 0 mls/hr CONT PRN IV SEE I/O RECORD Last administered on 07/31/16 03:17; Start 07/30/16 at 14:30; Stop 08/01/16 at 13:19; Status DC Ondansetron HCl (Zofran) 8 mg PRN Q8HRS PRN IV NAUSEA/VOMITING Last administered on 07/30/16 14:38; Start 07/30/16 at 14:30 Sodium Bicarbonate 50 meq 50 meq 1X ONCE IV Last administered on 07/30/16 14: 43; Start 07/30/16 at 14:30; Stop 07/30/16 at 14:31; Status DC Heparin Sodium/ Sodium Chloride 500 ml @ As Directed STK-MED ONCE .ROUTE ; Start 07/30/16 at 14:49; Stop 07/30/16 at 14:50; Status DC Lidocaine HCl 20 ml STK-MED ONCE .ROUTE ; Start 07/30/16 at 14:49; Stop at 14:50; Status DC Midazolam HCl (Versed) 2 mg STK-MED ONCE .ROUTE ; Start 07/30/16 at 15:19; Stop 07/30/16 at 15:20; Status DC Heparin Sodium/ Sodium Chloride 1,000 unit 1X ONCE IART Last administered on 15:44; Start 07/30/16 at 15:45; Stop 07/30/16 at 15:46; Status DC Midazolam HCl (Versed) 1.5 mg 1X ONCE IV Last administered on 07/30/16 15:44 ; Start 07/30/16 at 15:45; Stop 07/30/16 at 15:46; Status DC Lidocaine HCl 20 ml 1X ONCE IJ Last administered on 07/30/16 15:44; Start at 15:45; Stop 07/30/16 at 15:46; Status DC Heparin Sodium (Porcine) 73042 unit 10,000 unit STK-MED ONCE .ROUTE ; Start at 15:54; Stop 07/30/16 at 15:55; Status DC Fentanyl Citrate 30 ml @ 0 mls/hr CONT PRN PRN IV PROTOCOL Last administered on 08/08/16 10:21; Start 07/30/16 at 16:45; Stop 08/08/16 at 11:03; Status DC Sodium Bicarbonate/ Dextrose 1,150 ml @ 125 mls/hr 1X ONCE IV Last administered on 07/30/16 18:34; Start 07/30/16 at 17:30; Stop 07/31/16 at 02:41 ; Status DC Succinylcholine Chloride 200 mg 200 mg STK-MED ONCE .ROUTE ; Start 07/30/16 at 19:47; Stop 07/30/16 at 19:48; Status DC Propofol 100 ml @ As Directed STK-MED ONCE IV ; Start 07/30/16 at 19:48; Stop 07/30/16 at 19:49; Status DC Midazolam HCl (Versed 100mg/ 100ml Premix) 100 ml @ 0 mls/hr CONT PRN IV SEE I/ O RECORD Last administered on 08/03/16 12:18; Start 07/30/16 at 21:15 Sodium Bicarbonate 50 meq 50 meq 1X ONCE IV Last administered on 07/30/16 22: 15; Start 07/30/16 at 22:30; Stop 07/30/16 at 22:31; Status DC Dopamine HCl/ Dextrose 250 ml @ 11.513 mls/ hr CONT PRN IV SEE I/O RECORD Last administered on 07/31/16 20:16; Start 07/30/16 at 22:15; Stop 08/04/16 at 09:29; Status DC Sodium Bicarbonate/ Dextrose 1,150 ml @ 125 mls/hr Q9H12M IV Last administered on 08/01/16 09:30; Start 07/31/16 at 03:00; Stop 08/01/16 at 13:19 ; Status DC Propofol (Diprivan) 1,000 mg STK-MED ONCE IV ; Start 07/30/16 at 20:00; Stop at 08:16; Status DC Succinylcholine Chloride 200 mg 200 mg STK-MED ONCE .ROUTE ; Start 07/30/16 at 20:00; Stop 07/31/16 at 08:16; Status DC Tigecycline 50 mg/ Sodium Chloride 50 ml @ 100 mls/hr Q12HR IV Last administered on 08/04/16 09:01; Start 07/31/16 at 21:00; Stop 08/04/16 at 10:00 ; Status DC Tigecycline/ Sodium Chloride (Tygacil/Iv Sodium Chloride 0.9% 100ml) 100 ml @ 200 mls/hr 1X ONCE IV Last administered on 07/31/16 09:22; Start 07/31/16 at 09:00; Stop 07/31/16 at 09:29; Status DC Darbepoetin Sarbjit 60 mcg 60 mcg WEEKLYHS SQ Last administered on 08/07/16 21:41 ; Start 07/31/16 at 21:00 Albumin Human 100 ml @ 100 mls/hr 1X ONCE IV Last administered on 07/31/16 11:40; Start 07/31/16 at 11:15; Stop 07/31/16 at 12:14; Status DC Albumin Human 100 ml @ 100 mls/hr 1X ONCE IV Last administered on 07/31/16 12:03; Start 07/31/16 at 11:15; Stop 07/31/16 at 12:14; Status DC Sodium Chloride (Iv Sodium Chloride 0.9% 1000ml Bag) 1,000 ml @ 1,000 mls/hr Q1H PRN IV hypotension; Start 07/31/16 at 11:33; Stop 07/31/16 at 17:32; Status DC Info (PHARMACY MONITORING -- do not chart) 1 each PRN DAILY PRN MC SEE COMMENTS ; Start 07/31/16 at 11:45 Info (PHARMACY MONITORING -- do not chart) 1 each PRN DAILY PRN MC SEE COMMENTS ; Start 07/31/16 at 11:45; Status UNV Hydrocortisone Sodium Succinate (Solu-Cortef) 100 mg Q8HRS IV Last administered on 08/04/16 06:16; Start 08/01/16 at 07:00; Stop 08/04/16 at 09:29 ; Status DC Albuterol/ Ipratropium (Duoneb) 3 ml RTQID NEB Last administered on 08/10/16 08:30; Start 08/01/16 at 08:00 Albuterol/ Ipratropium 3 ml 3 ml STK-MED ONCE .ROUTE Last administered on 07:34; Start 08/01/16 at 06:59; Stop 08/01/16 at 07:00; Status DC Sodium Chloride 1,000 ml @ 1,000 mls/hr Q1H PRN IV hypotension; Start 08/01/16 at 06:57; Stop 08/01/16 at 12:56; Status DC Albumin Human (Albuminar) 200 ml @ 200 mls/hr 1X PRN PRN IV Hypotension; Start 08/01/16 at 07:00; Stop 08/01/16 at 12:59; Status DC Info (PHARMACY MONITORING -- do not chart) 1 each PRN DAILY PRN MC SEE COMMENTS ; Start 08/01/16 at 07:00; Status UNV Info 1 each 1 each PRN DAILY PRN MC SEE COMMENTS Last administered on 14:12; Start 08/01/16 at 13:30 Sodium Chloride 220 meq/Sodium Acetate 90 meq/ Potassium Chloride 15 meq/ Potassium Acetate 30 meq/Potassium Phosphate 10 mmol/ Magnesium Sulfate 45 meq/ Multivitamins/ Minerals 10 ml/ Chromium/Copper/ Manganese/Seleni/ Zn 1 ml/Total Parenteral Nutrition/Amino Acids/Dextrose/ Fat Emuls... 1,920 ml @ 80 mls/hr TPN CONT IV Last administered on 08/01/16 21:56; Start 08/01/16 at 22:00; Stop 08/02/16 at 21:59; Status DC Potassium Chloride (KCl Premix 20meq) 50 ml @ 50 mls/hr Q1H IV Last administered on 08/01/16 19:05; Start 08/01/16 at 17:00; Stop 08/01/16 at 18:59 ; Status DC Insulin Aspart 0-6 UNITS TIDWMEALS SQ Last administered on 08/02/16 11:33; Start 08/02/16 at 12:00; Stop 08/02/16 at 14:34; Status DC Sodium Chloride 220 meq/Sodium Acetate 90 meq/ Potassium Chloride 15 meq/ Potassium Acetate 30 meq/Magnesium Sulfate 45 meq/ Multivitamins/ Minerals 10 ml / Chromium/Copper/ Manganese/Seleni/ Zn 1 ml/Total Parenteral Nutrition/Amino Acids/Dextrose/ Fat Emulsion Intravenous 1,920 ml @ 80 mls/hr TPN CONT IV Last administered on 08/02/16 21:34; Start 08/02/16 at 22:00; Stop 08/03/16 at 21:59; Status DC Levofloxacin/ Dextrose 150 ml @ 100 mls/hr 1X ONCE IV Last administered on 14:35; Start 08/02/16 at 14:00; Stop 08/02/16 at 15:29; Status DC Daptomycin/Sodium Chloride (Cubicin/Iv Sodium Chloride 0.9% 50ml) 50 ml @ 100 mls/hr ONCE ONCE IV Last administered on 08/02/16 14:34; Start 08/02/16 at 15 :00; Stop 08/02/16 at 15:29; Status DC Insulin Aspart 0-6 UNITS Q6HRS SQ Last administered on 08/09/16 16:59; Start 08/02/16 at 18:00 Sodium Chloride (Iv Sodium Chloride 0.9% 1000ml Bag) 1,000 ml @ 1,000 mls/hr Q1H PRN IV hypotension; Start 08/03/16 at 07:26; Stop 08/03/16 at 13:25; Status DC Diphenhydramine HCl (Benadryl) 25 mg 1X PRN PRN IV ITCHING; Start 08/03/16 at 07:30; Stop 08/04/16 at 07:29; Status DC Diphenhydramine HCl (Benadryl) 25 mg 1X PRN PRN IV ITCHING; Start 08/03/16 at 07:30; Stop 08/04/16 at 07:29; Status DC Sodium Chloride (Normal Saline Flush) 10 ml 1X PRN PRN IV AP catheter pack; Start 08/03/16 at 07:30; Stop 08/04/16 at 07:29; Status DC Sodium Chloride 10 ml 10 ml 1X PRN PRN IV PRODUCTION GRIP catheter pack; Start 08/03/16 at 07:30; Stop 08/04/16 at 07:29; Status DC Sodium Chloride (Iv Sodium Chloride 0.9% 1000ml Bag) 1,000 ml @ 400 mls/hr Q2H30M PRN IV PATENCY; Start 08/03/16 at 07:26; Stop 08/03/16 at 19:25; Status DC Info 1 each 1 each PRN DAILY PRN MC SEE COMMENTS; Start 08/03/16 at 07:30; Status UNV Albumin Human 200 ml @ 200 mls/hr Q2HR IV Last administered on 08/03/16 10:00 ; Start 08/03/16 at 08:44; Stop 08/03/16 at 10:59; Status DC Sodium Chloride 160 meq/Sodium Acetate 60 meq/ Potassium Chloride 15 meq/ Potassium Acetate 30 meq/Magnesium Sulfate 25 meq/ Multivitamins/ Minerals 10 ml / Chromium/Copper/ Manganese/Seleni/ Zn 1 ml/Total Parenteral Nutrition/Amino Acids/Dextrose/ Fat Emulsion Intravenous 1,500 ml @ 62.5 mls/hr TPN CONT IV Last administered on 08/03/16 22:52; Start 08/03/16 at 22:00; Stop 08/04/16 at 21:59; Status DC Levofloxacin/ Dextrose 100 ml @ 100 mls/hr 1X ONCE IV Last administered on 10:50; Start 08/04/16 at 07:30; Stop 08/04/16 at 08:30; Status DC Daptomycin 450 mg/ Sodium Chloride 50 ml @ 100 mls/hr ONCE ONCE IV Last administered on 08/04/16 09:55; Start 08/04/16 at 08:00; Stop 08/04/16 at 08:30 ; Status DC Tigecycline/ Sodium Chloride (Tygacil/Iv Sodium Chloride 0.9% 50ml) 50 ml @ 100 mls/hr Q12HR IV Last administered on 08/09/16 07:20; Start 08/04/16 at 21: 00; Stop 08/09/16 at 09:42; Status DC Hydrocortisone Sodium Succinate 50 mg 50 mg Q8HRS IV Last administered on 05:39; Start 08/04/16 at 14:00; Stop 08/05/16 at 11:12; Status DC Furosemide 100 mg/ Sodium Chloride 100 ml @ 0 mls/hr CONT PRN IV SEE I/O RECORD Last administered on 08/09/16 06:43; Start 08/04/16 at 11:30; Stop 08/09 at 11:31; Status DC Sodium Chloride 160 meq/Sodium Acetate 60 meq/ Potassium Chloride 15 meq/ Potassium Acetate 30 meq/Magnesium Sulfate 25 meq/ Multivitamins/ Minerals 10 ml / Chromium/Copper/ Manganese/Seleni/ Zn 1 ml/Total Parenteral Nutrition/Amino Acids/Dextrose/ Fat Emulsion Intravenous 1,500 ml @ 62.5 mls/hr TPN CONT IV Last administered on 08/04/16 21:45; Start 08/04/16 at 22:00; Stop 08/06/16 at 08:48; Status DC Sodium Chloride 1,000 ml @ 1,000 mls/hr Q1H PRN IV hypotension; Start 08/04/16 at 12:00; Stop 08/04/16 at 17:59; Status DC Sodium Chloride (Iv Sodium Chloride 0.9% 1000ml Bag) 1,000 ml @ 400 mls/hr Q2H30M PRN IV PATENCY; Start 08/04/16 at 12:00; Stop 08/04/16 at 23:59; Status DC Info 1 each 1 each PRN DAILY PRN MC SEE COMMENTS; Start 08/04/16 at 16:30; Status UNV Levofloxacin/ Dextrose 100 ml @ 100 mls/hr 1X ONCE IV Last administered on 14:27; Start 08/05/16 at 14:00; Stop 08/05/16 at 14:59; Status DC Daptomycin/Sodium Chloride (Cubicin/Iv Sodium Chloride 0.9% 50ml) 50 ml @ 100 mls/hr 1X ONCE IV Last administered on 08/05/16 14:27; Start 08/05/16 at 14: 00; Stop 08/05/16 at 14:29; Status DC Heparin Sodium (Porcine) 10,000 unit STK-MED ONCE .ROUTE ; Start 08/05/16 at 09: 35; Stop 08/05/16 at 09:36; Status DC Lidocaine/Sodium Bicarbonate 20 ml 20 ml STK-MED ONCE IJ ; Start 08/05/16 at 09: 36; Stop 08/05/16 at 09:37; Status DC Heparin Sodium/ Sodium Chloride 500 ml @ As Directed STK-MED ONCE .ROUTE ; Start 08/05/16 at 09:36; Stop 08/05/16 at 09:37; Status DC Lidocaine/Sodium Bicarbonate (Buffered Lidocaine 1%) 2 ml 1X ONCE IJ Last administered on 08/05/16 10:04; Start 08/05/16 at 10:00; Stop 08/05/16 at 10:02 ; Status DC Heparin Sodium/ Sodium Chloride 60 unit 1X ONCE IV Last administered on 10:04; Start 08/05/16 at 10:00; Stop 08/05/16 at 10:02; Status DC Heparin Sodium (Porcine) 2,800 unit 1X ONCE INT CAT Last administered on 10:04; Start 08/05/16 at 10:00; Stop 08/05/16 at 10:02; Status DC Info (PHARMACY MONITORING -- do not chart) 1 each PRN DAILY PRN MC SEE COMMENTS ; Start 08/05/16 at 10:30; Stop 08/05/16 at 10:30; Status DC Info (PHARMACY MONITORING -- do not chart) 1 each PRN DAILY PRN MC SEE COMMENTS ; Start 08/05/16 at 10:30; Stop 08/05/16 at 10:30; Status DC Hydrocortisone Sodium Succinate 50 mg 50 mg BID IV Last administered on 07:49; Start 08/05/16 at 21:00; Stop 08/07/16 at 10:23; Status DC Sodium Chloride 160 meq/Sodium Acetate 60 meq/ Potassium Chloride 15 meq/ Potassium Acetate 30 meq/Magnesium Sulfate 25 meq/ Multivitamins/ Minerals 10 ml / Chromium/Copper/ Manganese/Seleni/ Zn 1 ml/Total Parenteral Nutrition/Amino Acids/Dextrose/ Fat Emulsion Intravenous 1,500 ml @ 62.5 mls/hr TPN CONT IV Last administered on 08/05/16 22:04; Start 08/05/16 at 22:00; Stop 08/06/16 at 21:59; Status DC Daptomycin 500 mg/ Sodium Chloride 50 ml @ 100 mls/hr Q24H IV Last administered on 08/09/16 13:44; Start 08/06/16 at 14:00 Sodium Chloride (Iv Sodium Chloride 0.9% 1000ml Bag) 1,000 ml @ 1,000 mls/hr Q1H PRN IV hypotension; Start 08/06/16 at 08:21; Stop 08/06/16 at 14:20; Status DC Diphenhydramine HCl (Benadryl) 25 mg 1X PRN PRN IV ITCHING; Start 08/06/16 at 08:30; Stop 08/07/16 at 08:29; Status DC Diphenhydramine HCl (Benadryl) 25 mg 1X PRN PRN IV ITCHING; Start 08/06/16 at 08:30; Stop 08/07/16 at 08:29; Status DC Sodium Chloride (Normal Saline Flush) 10 ml 1X PRN PRN IV AP catheter pack; Start 08/06/16 at 08:30; Stop 08/07/16 at 08:29; Status DC Sodium Chloride 10 ml 10 ml 1X PRN PRN IV PRODUCTION GRIP catheter pack; Start 08/06/16 at 08:30; Stop 08/07/16 at 08:29; Status DC Sodium Chloride (Iv Sodium Chloride 0.9% 1000ml Bag) 1,000 ml @ 400 mls/hr Q2H30M PRN IV PATENCY; Start 08/06/16 at 08:21; Stop 08/06/16 at 20:20; Status DC Info 1 each 1 each PRN DAILY PRN MC SEE COMMENTS; Start 08/06/16 at 08:30; Status UNV Albumin Human 200 ml @ 200 mls/hr 1X STAT IV Last administered on 08/06/16 10:09; Start 08/06/16 at 09:52; Stop 08/06/16 at 10:51; Status DC Sodium Chloride/ Sodium Acetate/ Potassium Chloride/ Potassium Acetate/ Magnesium Sulfate/ Multivitamins/ Minerals/Chromium/ Copper/Manganese/ Seleni/Zn /Total Parenteral Nutrition/Amino Acids/Dextrose/ Fat Emulsion Intravenous ( Sodium Chloride/ Infuvite Adult/ Multitrace-5 Conc/ Tpn - Tpn Flu... 1,500 ml @ 62.5 mls/hr TPN CONT IV Last administered on 08/06/16 21:57; Start at 22:00; Stop 08/07/16 at 21:59; Status DC Darbepoetin Sarbjit 60 mcg 60 mcg WEEKLYHS SQ ; Start 08/07/16 at 21:00; Status UNV Potassium Chloride (KCl Premix 20meq) 50 ml @ 50 mls/hr Q1H IV Last administered on 08/07/16 10:46; Start 08/07/16 at 08:00; Stop 08/07/16 at 09:59 ; Status DC Hydrocortisone Sodium Succinate 25 mg 25 mg BID IV ; Start 08/07/16 at 21:00; Stop 08/07/16 at 21:00; Status DC Sodium Chloride (Iv Sodium Chloride 0.9% 1000ml Bag) 1,000 ml @ 1,000 mls/hr Q1H PRN IV hypotension; Start 08/07/16 at 12:08; Stop 08/07/16 at 18:07; Status DC Diphenhydramine HCl (Benadryl) 25 mg 1X PRN PRN IV ITCHING; Start 08/07/16 at 12:15; Stop 08/08/16 at 12:14; Status DC Diphenhydramine HCl (Benadryl) 25 mg 1X PRN PRN IV ITCHING; Start 08/07/16 at 12:15; Stop 08/08/16 at 12:14; Status DC Sodium Chloride (Normal Saline Flush) 10 ml 1X PRN PRN IV AP catheter pack; Start 08/07/16 at 12:15; Stop 08/08/16 at 12:14; Status DC Sodium Chloride (Normal Saline Flush) 10 ml 1X PRN PRN IV PRODUCTION GRIP catheter pack; Start 08/07/16 at 12:15; Stop 08/08/16 at 12:14; Status DC Info (PHARMACY MONITORING -- do not chart) 1 each PRN DAILY PRN MC SEE COMMENTS ; Start 08/07/16 at 12:15; Status UNV Info 1 each 1 each PRN DAILY PRN MC SEE COMMENTS; Start 08/07/16 at 12:15; Status UNV Sodium Chloride 160 meq/Sodium Acetate 60 meq/ Potassium Chloride 55 meq/ Potassium Acetate 30 meq/Magnesium Sulfate 25 meq/ Multivitamins/ Minerals 10 ml / Chromium/Copper/ Manganese/Seleni/ Zn 1 ml/Total Parenteral Nutrition/Amino Acids/Dextrose/ Fat Emulsion Intravenous 1,500 ml @ 62.5 mls/hr TPN CONT IV Last administered on 08/07/16 21:41; Start 08/07/16 at 22:00; Stop 08/08/16 at 21:59; Status DC Potassium Chloride (KCl Premix 20meq) 50 ml @ 50 mls/hr 1X ONCE IV Last administered on 08/08/16 09:04; Start 08/08/16 at 10:00; Stop 08/08/16 at 10:59 ; Status DC Fentanyl Citrate 25 mcg 25 mcg PRN Q4HRS PRN IV PAIN Last administered on 15:04; Start 08/08/16 at 11:00 Potassium Chloride 50 ml @ 50 mls/hr 1X ONCE IV Last administered on 15:33; Start 08/08/16 at 11:15; Stop 08/08/16 at 12:14; Status DC Sodium Chloride 140 meq/Sodium Acetate 60 meq/ Potassium Chloride 70 meq/ Potassium Acetate 30 meq/Magnesium Sulfate 25 meq/ Multivitamins/ Minerals 10 ml / Chromium/Copper/ Manganese/Seleni/ Zn 1 ml/Total Parenteral Nutrition/Amino Acids/Dextrose/ Fat Emulsion Intravenous 1,500 ml @ 62.5 mls/hr TPN CONT IV Last administered on 08/08/16 21:42; Start 08/08/16 at 22:00; Stop 08/09/16 at 11:30; Status DC Tigecycline 50 mg/ Sodium Chloride 50 ml @ 100 mls/hr Q12HR IV ; Start at 09:42; Stop 08/09/16 at 10:03; Status DC Dextrose 1,000 ml @ 80 mls/hr [id number] IV ; Start 08/09/16 at 11:45; Stop at 11:57; Status DC Dextrose/Sodium Chloride 1,000 ml @ 50 mls/hr Q20H IV Last administered on t 12:22; Start 08/09/16 at 12:00 Sodium Chloride/ Sodium Acetate/ Potassium Chloride/ Potassium Acetate/ Magnesium Sulfate/ Multivitamins/ Minerals/Chromium/ Copper/Manganese/ Seleni/Zn /Total Parenteral Nutrition/Amino Acids/Dextrose/ Fat Emulsion Intravenous ( Sodium Chloride/ Infuvite Adult/ Multitrace-5 Conc/ Tpn - Tpn Flu... 1,512 ml @ 63 mls/hr TPN CONT IV ; Start 08/09/16 at 22:00; Stop 08/10/16 at 21:59 Active Scripts Active Dilaudid (Hydromorphone Hcl) 4 Mg Tablet 4 Mg PO Q6HRS Phenazopyridine Hcl 200 Mg Tablet 200 Mg PO PRN TID PRN FENTANYL 50mcg/hr (Fentanyl) 1 Each Patch.td72 1 Patch TD Q3DAYS Anaspaz (Hyoscyamine Sulfate) 0.125 Mg Tab.rapdis 0.125 Mg PO Q6HRS PRN Cefpodoxime Proxetil 200 Mg Tablet 200 Mg PO BID Sertraline Hcl 50 Mg Tablet 100 Mg PO DAILY 30 Days Protonix (Pantoprazole Sodium) 40 Mg Tablet.dr 1 Tab PO DAILY Zinc Oxide 56.7 Gm Oint...g. 1 Sang TP BID Lidocaine 35.44 Gm Oint...g. 1 Sang TP BID Ondansetron Odt (Ondansetron) 4 Mg Tab.rapdis 8 Mg PO PRN Q8HRS PRN Gas-X (Simethicone) 80 Mg Tab.chew 80 Mg PO PRN QID PRN Reported Lorazepam 0.5 Mg Tablet 0.5 Mg PO PRN BID PRN Vitals/I & O Vital Sign - Last 24 Hours 08/09/16 08/09/16 08/09/16 08/09/16 09:19 10:00 11:00 11:38 Pulse 106 110 Resp 19 16 20 B/P 126/73 154/78 Pulse Ox 100 100 100 100 O2 Delivery Ventilator Ventilator Ventilator Ventilator 08/09/16 08/09/16 08/09/16 08/09/16 12:00 12:00 13:00 14:00 Temp 97.8 97.8 97.8 97.8 Pulse 108 94 99 Resp 14 15 16 B/P 133/84 158/89 169/82 Pulse Ox 100 100 100 O2 Delivery Mechanical Ventilator Ventilator Ventilator Ventilator 08/09/16 08/09/16 08/09/16 08/09/16 15:00 15:04 15:34 16:00 Pulse 95 Resp 16 17 17 B/P 169/87 Pulse Ox 100 100 100 O2 Delivery Ventilator Ventilator Ventilator Mechanical Ventilator 08/09/16 08/09/16 08/09/16 08/09/16 16:00 16:22 17:00 18:00 Temp 97.6 97.6 Pulse 96 96 113 Resp 16 14 14 B/P 173/76 145/85 170/80 Pulse Ox 100 100 100 100 O2 Delivery Ventilator Ventilator Ventilator Ventilator 08/09/16 08/09/16 08/09/16 08/09/16 19:00 20:00 20:00 20:40 Temp 98.1 98.1 Pulse 114 111 Resp 16 16 B/P 143/80 162/82 Pulse Ox 100 100 100 O2 Delivery Ventilator Mechanical Ventilator Ventilator Ventilator 08/09/16 08/09/16 08/09/16 08/09/16 21:00 22:00 23:00 23:46 Pulse 110 108 94 Resp 14 15 14 B/P 154/88 124/73 123/68 Pulse Ox 100 100 100 100 O2 Delivery Ventilator Ventilator Ventilator Ventilator 08/10/16 08/10/16 08/10/16 08/10/16 00:00 00:00 01:00 01:31 Temp 97.3 97.3 Pulse 94 107 Resp 15 15 B/P 138/76 157/90 Pulse Ox 100 100 100 O2 Delivery Mechanical Ventilator Ventilator Ventilator Ventilator 08/10/16 08/10/16 08/10/16 08/10/16 02:00 03:00 03:35 04:00 Temp 98.2 98.2 Pulse 98 104 99 Resp 15 14 14 B/P 158/92 132/78 154/81 Pulse Ox 100 100 100 100 O2 Delivery Ventilator Ventilator Ventilator Ventilator 08/10/16 08/10/16 08/10/16 08/10/16 04:00 05:00 05:49 06:00 Pulse 98 88 Resp 14 14 B/P 148/85 154/76 Pulse Ox 100 100 100 O2 Delivery Mechanical Ventilator Ventilator Ventilator Ventilator 08/10/16 08/10/16 08:10 08:30 Pulse Ox 100 O2 Delivery Ventilator Ventilator Intake and Output 08/09/16 08/09/16 08/10/16 15:00 23:00 07:00 Intake Total 393 ml 413 ml 887 ml Output Total 780 ml 1340 ml 590 ml Balance -387 ml -927 ml 297 ml ENMA FINLEY MD Aug 10, 2016 09:11
[2016-08-10 09:23] LABS: MAGNESIUM 2.4 mg/dL (1.8-2.4); PHOSPHORUS 4.2 mg/dL (2.6-4.7)
--- NOTE | 2016-08-10 09:47 | PDOC ---
PROGRESS NOTES Subjective Subjective Pt remains intubated but more awake today responding to commands appropriately. Nursing reports she has been improving slowly. Objective Objective Vital Signs Date Time Temp Pulse Resp B/P Pulse Ox O2 Delivery O2 Flow Rate FiO2 08/10/16 08:30 Ventilator 08/10/16 08:10 100 08/10/16 06:00 88 14 154/76 08/10/16 04:00 98.2 98.2 08/08/16 10:21 50.0 Intake and Output 08/10/16 06:59 Intake Total 1693 ml Output Total 2830 ml Balance -1137 ml IV Total 806 ml Other 887 ml Output Urine Total 1515 ml Drainage Total 1315 ml Physical Exam Physical Exam Cardiac exam remains unchanged. With regular rate in normal sinus rhythm. Peripheral pulses palpable. generalized edema. Assessment Assessment Patients cardiac status remains unchanged. Patient is critically ill recovering from [facility] secondary to septic shock due to UTI and fungemia. Problems Medical Problems: (1) Abdominal pain Status: Acute (2) Enterocutaneous fistula Status: Acute (3) Sepsis Status: Acute (4) Urinary tract infection Status: Acute (5) UTI (urinary tract infection) Status: Acute Plan Plan of Care Agree with current plan of care. Comment Review of Relevant I have reviewed the following items lucila (where applicable) has been applied. Labs Laboratory Tests Test 08/08/16 09:50 08/08/16 11:40 08/08/16 13:15 08/08/16 18:42 O2 Saturation 99% (92-99) Arterial Blood pH 7.51 (7.35-7.45) Arterial Blood pCO2 at Patient Temp 35mmHg (35-46) Arterial Blood pO2 at Patient Temp 185mmHg (65-108) Arterial Blood HCO3 28mmol/L (21-28) Arterial Blood Base Excess 4mmol/L (-3-3) FiO2 35 Glucose (Fingerstick) 134mg/dL (70-99) 126mg/dL (70-99) Potassium Level 3.2mmol/L (3.5-5.1) Test 08/09/16 00:18 08/09/16 05:35 08/09/16 05:42 08/09/16 11:04 Glucose (Fingerstick) 137mg/dL (70-99) 113mg/dL (70-99) 142mg/dL (70-99) White Blood Count 9.2x10^3/uL (4.0-11.0) Red Blood Count 3.31x10^6/uL (3.50-5.40) Hemoglobin 8.5g/dL (12.0-15.5) Hematocrit 27.1% (36.0-47.0) Mean Corpuscular Volume 82fL (79-100) Mean Corpuscular Hemoglobin 26pg (25-35) Mean Corpuscular Hemoglobin Concent 31g/dL (31-37) Red Cell Distribution Width 21.1% (11.5-14.5) Platelet Count 68x10^3/uL (140-400) Neutrophils (%) (Auto) 72% (31-73) Lymphocytes (%) (Auto) 17% (24-48) Monocytes (%) (Auto) 7% (0-9) Eosinophils (%) (Auto) 3% (0-3) Basophils (%) (Auto) 1% (0-3) Neutrophils # (Auto) 6.5x10^3uL (1.8-7.7) Lymphocytes # (Auto) 1.6x10^3/uL (1.0-4.8) Monocytes # (Auto) 0.7x10^3/uL (0.0-1.1) Eosinophils # (Auto) 0.2x10^3/uL (0.0-0.7) Basophils # (Auto) 0.1x10^3/uL (0.0-0.2) Platelet Estimate Decreased (ADEQUATE) Giant Platelets Present Hypochromasia Present Anisocytosis Mod Sodium Level 151mmol/L (136-145) Potassium Level 3.7mmol/L (3.5-5.1) Chloride Level 110mmol/L (98-107) Carbon Dioxide Level 36mmol/L (21-32) Anion Gap 5 (6-14) Blood Urea Nitrogen 76mg/dL (7-20) Creatinine 1.1mg/dL (0.6-1.0) Estimated GFR (Cockcroft-Gault) 61.1 Glucose Level 110mg/dL (70-99) Lactic Acid Level 0.9mmol/L (0.4-2.0) Calcium Level 9.0mg/dL (8.5-10.1) Magnesium Level 2.4mg/dL (1.8-2.4) Vancomycin Level Trough < 0.8mcg/mL (10.0-20.0) Vancomycin Last Dose Date 08/08/16 Vancomycin Last Dose Time 1600 Test 08/09/16 11:30 08/09/16 16:20 08/09/16 16:30 08/10/16 00:02 Prothrombin Time 15.3SEC (11.7-14.0) Prothromb Time International Ratio 1.3 (0.8-1.1) Activated Partial Thromboplast Time 37SEC (24-38) Fibrinogen 231mg/dL (200-440) O2 Saturation 98% (92-99) Arterial Blood pH 7.55 (7.35-7.45) Arterial Blood pCO2 at Patient Temp 33mmHg (35-46) Arterial Blood pO2 at Patient Temp 119mmHg (65-108) Arterial Blood HCO3 28mmol/L (21-28) Arterial Blood Base Excess 6mmol/L (-3-3) FiO2 35 Sodium Level 153mmol/L (136-145) Potassium Level 3.8mmol/L (3.5-5.1) Chloride Level 112mmol/L (98-107) Carbon Dioxide Level 34mmol/L (21-32) Anion Gap 7 (6-14) Blood Urea Nitrogen 83mg/dL (7-20) Creatinine 1.2mg/dL (0.6-1.0) Estimated GFR (Cockcroft-Gault) 55.3 Glucose Level 153mg/dL (70-99) Calcium Level 9.2mg/dL (8.5-10.1) Glucose (Fingerstick) 132mg/dL (70-99) Test 08/10/16 05:45 08/10/16 05:47 White Blood Count 7.6x10^3/uL (4.0-11.0) Red Blood Count 3.22x10^6/uL (3.50-5.40) Hemoglobin 8.3g/dL (12.0-15.5) Hematocrit 26.5% (36.0-47.0) Mean Corpuscular Volume 82fL (79-100) Mean Corpuscular Hemoglobin 26pg (25-35) Mean Corpuscular Hemoglobin Concent 31g/dL (31-37) Red Cell Distribution Width 21.8% (11.5-14.5) Platelet Count 71x10^3/uL (140-400) Neutrophils (%) (Auto) 74% (31-73) Lymphocytes (%) (Auto) 15% (24-48) Monocytes (%) (Auto) 9% (0-9) Eosinophils (%) (Auto) 1% (0-3) Basophils (%) (Auto) 1% (0-3) Neutrophils # (Auto) 5.6x10^3uL (1.8-7.7) Lymphocytes # (Auto) 1.1x10^3/uL (1.0-4.8) Monocytes # (Auto) 0.7x10^3/uL (0.0-1.1) Eosinophils # (Auto) 0.1x10^3/uL (0.0-0.7) Basophils # (Auto) 0.1x10^3/uL (0.0-0.2) Sodium Level 154mmol/L (136-145) Potassium Level 3.4mmol/L (3.5-5.1) Chloride Level 113mmol/L (98-107) Carbon Dioxide Level 33mmol/L (21-32) Anion Gap 8 (6-14) Blood Urea Nitrogen 78mg/dL (7-20) Creatinine 1.0mg/dL (0.6-1.0) Estimated GFR (Cockcroft-Gault) 68.2 Glucose Level 117mg/dL (70-99) Calcium Level 9.4mg/dL (8.5-10.1) Phosphorus Level 4.2mg/dL (2.6-4.7) Magnesium Level 2.4mg/dL (1.8-2.4) Glucose (Fingerstick) 109mg/dL (70-99) Laboratory Tests Test 08/09/16 11:04 08/09/16 11:30 08/09/16 16:20 08/09/16 16:30 Glucose (Fingerstick) 142mg/dL (70-99) Prothrombin Time 15.3SEC (11.7-14.0) Prothromb Time International Ratio 1.3 (0.8-1.1) Activated Partial Thromboplast Time 37SEC (24-38) Fibrinogen 231mg/dL (200-440) O2 Saturation 98% (92-99) Arterial Blood pH 7.55 (7.35-7.45) Arterial Blood pCO2 at Patient Temp 33mmHg (35-46) Arterial Blood pO2 at Patient Temp 119mmHg (65-108) Arterial Blood HCO3 28mmol/L (21-28) Arterial Blood Base Excess 6mmol/L (-3-3) FiO2 35 Sodium Level 153mmol/L (136-145) Potassium Level 3.8mmol/L (3.5-5.1) Chloride Level 112mmol/L (98-107) Carbon Dioxide Level 34mmol/L (21-32) Anion Gap 7 (6-14) Blood Urea Nitrogen 83mg/dL (7-20) Creatinine 1.2mg/dL (0.6-1.0) Estimated GFR (Cockcroft-Gault) 55.3 Glucose Level 153mg/dL (70-99) Calcium Level 9.2mg/dL (8.5-10.1) Test 08/10/16 00:02 08/10/16 05:45 08/10/16 05:47 Glucose (Fingerstick) 132mg/dL (70-99) 109mg/dL (70-99) White Blood Count 7.6x10^3/uL (4.0-11.0) Red Blood Count 3.22x10^6/uL (3.50-5.40) Hemoglobin 8.3g/dL (12.0-15.5) Hematocrit 26.5% (36.0-47.0) Mean Corpuscular Volume 82fL (79-100) Mean Corpuscular Hemoglobin 26pg (25-35) Mean Corpuscular Hemoglobin Concent 31g/dL (31-37) Red Cell Distribution Width 21.8% (11.5-14.5) Platelet Count 71x10^3/uL (140-400) Neutrophils (%) (Auto) 74% (31-73) Lymphocytes (%) (Auto) 15% (24-48) Monocytes (%) (Auto) 9% (0-9) Eosinophils (%) (Auto) 1% (0-3) Basophils (%) (Auto) 1% (0-3) Neutrophils # (Auto) 5.6x10^3uL (1.8-7.7) Lymphocytes # (Auto) 1.1x10^3/uL (1.0-4.8) Monocytes # (Auto) 0.7x10^3/uL (0.0-1.1) Eosinophils # (Auto) 0.1x10^3/uL (0.0-0.7) Basophils # (Auto) 0.1x10^3/uL (0.0-0.2) Sodium Level 154mmol/L (136-145) Potassium Level 3.4mmol/L (3.5-5.1) Chloride Level 113mmol/L (98-107) Carbon Dioxide Level 33mmol/L (21-32) Anion Gap 8 (6-14) Blood Urea Nitrogen 78mg/dL (7-20) Creatinine 1.0mg/dL (0.6-1.0) Estimated GFR (Cockcroft-Gault) 68.2 Glucose Level 117mg/dL (70-99) Calcium Level 9.4mg/dL (8.5-10.1) Phosphorus Level 4.2mg/dL (2.6-4.7) Magnesium Level 2.4mg/dL (1.8-2.4) Microbiology 08/01/16 Blood Culture - Final, Complete NO GROWTH AFTER 5 DAYS 07/15/16 Urine Culture - Final, Complete 07/15/16 Urine Culture Result 1 (ROYA) - Final, Complete 07/15/16 Urine Culture Result 2 (ROYA) - Final, Complete 07/15/16 Antimicrobic Susceptibility - Final, Complete 07/29/16 Aerobic Culture - Final, Complete 07/29/16 Aerobic Culture Result 1 (ROYA) - Final, Complete Medications Current Medications Piperacillin Sod/ Tazobactam Sod/ Sodium Chloride (Zosyn/Iv Sodium Chloride 0.9 % 100ml) 100 ml @ 200 mls/hr 1X ONCE IV Last administered on 07/15/16 22:56; Start 07/15/16 at 22:00; Stop 07/15/16 at 22:29; Status DC Fentanyl Citrate 50 mcg 50 mcg PRN Q15MIN PRN IV PAIN GREATER THAN 3/10 Last administered on 07/16/16 00:30; Start 07/15/16 at 21:45; Stop 07/16/16 at 02:00; Status DC Sodium Chloride 1,000 ml @ 1,000 mls/hr 1X ONCE IV Last administered on 21:59; Start 07/15/16 at 22:00; Stop 07/15/16 at 22:59; Status DC Sodium Chloride (Iv Sodium Chloride 0.9% 500ml Bag) 500 ml @ 500 mls/hr 1X ONCE IV Last administered on 07/15/16 22:00; Start 07/15/16 at 22:00; Stop at 22:59; Status DC Ondansetron HCl (Zofran) 4 mg PRN Q8HRS PRN IV NAUSEA/VOMITING; Start 07/15/16 at 23:30; Stop 07/16/16 at 08:52; Status DC Fentanyl Citrate 50 mcg 50 mcg PRN Q2HR PRN IV SEVERE PAIN Last administered on 07/16/16 08:10; Start 07/15/16 at 23:30; Stop 07/16/16 at 08:52; Status DC Sodium Chloride (Iv Sodium Chloride 0.9% 1000ml Bag) 1,000 ml @ 150 mls/hr Q6H40M IV Last administered on 07/15/16 02:00; Start 07/15/16 at 23:45; Stop 07/16/16 at 08:52; Status DC Acetaminophen (Tylenol) 650 mg PRN Q4HRS PRN PO FEVER; Start 07/15/16 at 23:30; Stop 07/16/16 at 23:29; Status DC Info (Do NOT chart on this placeholder) 1 each PRN DAILY PRN MC NEEDS VERIFICATION; Start 07/16/16 at 03:00; Status Cancel Acetaminophen 650 mg 650 mg PRN Q4HRS PRN PO MILD PAIN / TEMP Last administered on 07/28/16 07:42; Start 07/16/16 at 08:45; Stop 07/29/16 at 08:33 ; Status DC Piperacillin Sod/ Tazobactam Sod 3.375 gm/Sodium Chloride 50 ml @ 100 mls/hr Q6HRS IV Last administered on 07/18/16 05:50; Start 07/16/16 at 10:00; Stop 07/18 at 13:28; Status DC Linezolid (Zyvox Premix) 300 ml @ 300 mls/hr Q12HR IV Last administered on 07/18 08:34; Start 07/16/16 at 10:00; Stop 07/18/16 at 13:28; Status DC Hydromorphone HCl (Dilaudid) 2 mg PRN Q4HRS PRN IV MODERATE PAIN Last administered on 08/09/16 06:39; Start 07/16/16 at 08:45; Stop 08/09/16 at 17:35 ; Status DC Hydromorphone HCl (Dilaudid) 4 mg PRN Q4HRS PRN IV SEVERE PAIN Last administered on 07/30/16 09:23; Start 07/16/16 at 08:45; Stop 07/31/16 at 15:01 ; Status DC Pantoprazole Sodium (Protonix) 40 mg DAILYAC PO Last administered on 07/27/16 11:11; Start 07/16/16 at 09:30; Stop 07/29/16 at 08:44; Status DC Hyoscyamine (Anaspaz) 0.125 mg Q6HRS PO Last administered on 07/20/16 05:20; Start 07/16/16 at 12:00; Stop 07/20/16 at 08:58; Status DC Phenazopyridine HCl (Pyridium) 200 mg TID PO Last administered on 07/20/16 08: 25; Start 07/16/16 at 09:30; Stop 07/20/16 at 08:58; Status DC Lorazepam (Ativan) 0.5 mg PRN BID PRN PO ANXIETY / AGITATION Last administered on 07/29/16 02:16; Start 07/16/16 at 08:45; Stop 07/31/16 at 15:01; Status DC Simethicone (Gas-X) 80 mg PRN Q4HRS PRN PO GAS / BLOATING Last administered on 07/24/16 22:30; Start 07/16/16 at 08:45; Stop 07/31/16 at 15:01; Status DC Zolpidem Tartrate 5 mg 5 mg PRN QHS PRN PO INSOMNIA Last administered on 23:14; Start 07/16/16 at 08:45; Stop 07/31/16 at 15:01; Status DC Potassium Chloride/Dextrose/ Sod Cl 1,000 ml @ 80 mls/hr [id number] IV Last administered on 07/16/16 10:54; Start 07/16/16 at 09:30; Stop 07/16/16 at 21:59; Status DC Fluconazole/ Sodium Chloride (Diflucan 200mg/ 100ml Premix) 100 ml @ 100 mls/ hr Q24H IV Last administered on 07/18/16 11:43; Start 07/16/16 at 11:00; Stop at 13:28; Status DC Info 1 each 1 each PRN DAILY PRN MC SEE COMMENTS Last administered on 12:41; Start 07/16/16 at 10:00; Stop 08/01/16 at 11:24; Status DC Sodium Chloride 220 meq/Sodium Acetate 90 meq/ Potassium Chloride 50 meq/ Potassium Acetate 15 meq/Potassium Phosphate 10 mmol/ Magnesium Sulfate 50 meq/ Calcium Gluconate 6 meq/ Multivitamins/ Minerals 10 ml/ Chromium/Copper/ Manganese/Seleni/ Zn 1 ml/Total Parenteral Nutrition/Amino Acids/Dextro... 1, 920 ml @ 80 mls/hr TPN CONT IV ; Start 07/16/16 at 22:00; Stop 07/16/16 at 22:00 ; Status DC Sodium Chloride/ Sodium Acetate/ Potassium Chloride/ Potassium Acetate/ Potassium Phosphate/ Magnesium Sulfate/ Calcium Gluconate/ Multivitamins/ Minerals/Chromium/ Copper/Manganese/ Seleni/Zn/Total Parenteral Nutrition/Amino Acids/Dextrose/ Fat Emulsion Intravenous (Sodium Chlori... 1,820 ml @ 75.833 mls/ hr TPN CONT IV Last administered on 07/16/16 21:03; Start 07/16/16 at 22: 00; Stop 07/17/16 at 21:59; Status DC Ondansetron HCl (Zofran) 4 mg PRN Q6HRS PRN IV NAUSEA/VOMITING Last administered on 07/21/16 08:48; Start 07/16/16 at 17:15; Stop 07/31/16 at 15:01; Status DC Diphenhydramine HCl (Benadryl) 25 mg PRN Q6HRS PRN PO ITCHING Last administered on 07/25/16 23:38; Start 07/16/16 at 17:45; Stop 07/31/16 at 15:01 ; Status DC Lidocaine (Xylocaine) 1 sang BID TP Last administered on 08/10/16 08:14; Start 07/17/16 at 09:00 Zinc Oxide 1 sang 1 sang BID TP Last administered on 08/10/16 08:13; Start at 09:30 Sodium Chloride/ Sodium Acetate/ Potassium Chloride/ Potassium Acetate/ Potassium Phosphate/ Magnesium Sulfate/ Calcium Gluconate/ Multivitamins/ Minerals/Chromium/ Copper/Manganese/ Seleni/Zn/Total Parenteral Nutrition/Amino Acids/Dextrose/ Fat Emulsion Intravenous (Sodium Chlori... 1,920 ml @ 80 mls/ hr TPN CONT IV Last administered on 07/17/16 22:13; Start 07/17/16 at 22:00; Stop 07/18/16 at 21:59; Status DC Furosemide 40 mg 40 mg 1X ONCE IVP Last administered on 07/18/16 11:43; Start 07/18/16 at 11:00; Stop 07/18/16 at 11:07; Status DC Sodium Chloride 220 meq/Sodium Acetate 90 meq/ Potassium Chloride 50 meq/ Potassium Acetate 15 meq/Potassium Phosphate 10 mmol/ Magnesium Sulfate 50 meq/ Calcium Gluconate 3 meq/ Multivitamins/ Minerals 10 ml/ Chromium/Copper/ Manganese/Seleni/ Zn 1 ml/Total Parenteral Nutrition/Amino Acids/Dextro... 1, 920 ml @ 80 mls/hr TPN CONT IV Last administered on 07/19/16 00:03; Start 07/18/16 at 22:00; Stop 07/19/16 at 21:59; Status DC Meropenem 1 gm/ Sodium Chloride 100 ml @ 200 mls/hr Q8HRS IV Last administered on 07/20/16 05:21; Start 07/18/16 at 14:00; Stop 07/20/16 at 11:25; Status DC Micafungin Sodium 100 mg/Dextrose 100 ml @ 100 mls/hr Q24H IV Last administered on 07/19/16 15:05; Start 07/18/16 at 14:00; Stop 07/20/16 at 11:25; Status DC Daptomycin/Sodium Chloride (Cubicin/Iv Sodium Chloride 0.9% 50ml) 50 ml @ 100 mls/hr Q24H IV Last administered on 07/19/16 16:56; Start 07/18/16 at 15:00; Stop 07/20/16 at 11:25; Status DC Alteplase, Recombinant (Cathflo) 2 mg 1X ONCE INT CAT Last administered on 07/19 06:24; Start 07/19/16 at 07:00; Stop 07/19/16 at 07:01; Status DC Gentamicin Sulfate 1 each 1 each PRN DAILY PRN MC SEE COMMENTS Last administered on 07/25/16 15:31; Start 07/19/16 at 12:15; Stop 07/25/16 at 16:14 ; Status DC Gentamicin Sulfate/Sodium Chloride (Iv Sodium Chloride 0.9% 100ml) 106.75 ml @ 106.75 mls/hr Q24H IV Last administered on 07/25/16 15:31; Start 07/19/16 at 13 :00; Stop 07/25/16 at 16:12; Status DC Gentamicin Sulfate 1 each 1 each 1X ONCE MC Last administered on 07/19/16 23: 00; Start 07/19/16 at 23:00; Stop 07/19/16 at 23:01; Status DC Sodium Chloride/ Sodium Acetate/ Potassium Chloride/ Potassium Acetate/ Potassium Phosphate/ Magnesium Sulfate/ Calcium Gluconate/ Multivitamins/ Minerals/Chromium/ Copper/Manganese/ Seleni/Zn/Total Parenteral Nutrition/Amino Acids/Dextrose/ Fat Emulsion Intravenous (Sodium Chlori... 1,920 ml @ 80 mls/ hr TPN CONT IV Last administered on 07/19/16 20:51; Start 07/19/16 at 22:00; Stop 07/20/16 at 21:59; Status DC Hyoscyamine (Anaspaz) 0.125 mg PRN Q6HRS PRN PO BLADDER SPASM; Start 07/20/16 at 09:00; Stop 07/31/16 at 15:01; Status DC Phenazopyridine HCl 200 mg 200 mg PRN TID PRN PO BLADDER SPASM Last administered on 07/21/16 20:14; Start 07/20/16 at 09:00; Stop 07/31/16 at 15:01; Status DC Linezolid 300 ml @ 300 mls/hr Q12HR IV Last administered on 07/25/16 09:02; Start 07/20/16 at 12:00; Stop 07/25/16 at 16:12; Status DC Sodium Chloride 220 meq/Sodium Acetate 90 meq/ Potassium Chloride 50 meq/ Potassium Acetate 15 meq/Potassium Phosphate 10 mmol/ Magnesium Sulfate 50 meq/ Calcium Gluconate 3 meq/ Multivitamins/ Minerals 10 ml/ Chromium/Copper/ Manganese/Seleni/ Zn 1 ml/Total Parenteral Nutrition/Amino Acids/Dextro... 1, 920 ml @ 80 mls/hr TPN CONT IV Last administered on 07/20/16 21:30; Start 07/20/16 at 22:00; Stop 07/21/16 at 21:59; Status DC Sodium Chloride/ Sodium Acetate/ Potassium Chloride/ Potassium Acetate/ Potassium Phosphate/ Magnesium Sulfate/ Multivitamins/ Minerals/Chromium/ Copper /Manganese/ Seleni/Zn/Total Parenteral Nutrition/Amino Acids/Dextrose/ Fat Emulsion Intravenous (Sodium Chloride/ Potass... 1,920 ml @ 80 mls/hr TPN CONT IV Last administered on 07/21/16 22:05; Start 07/21/16 at 22:00; Stop at 21:59; Status DC Alteplase, Recombinant 2 mg 2 mg PRN DAILY PRN INT CAT INFLAMMATION Last administered on 07/27/16 11:31; Start 07/21/16 at 15:00 Sodium Chloride 220 meq/Sodium Acetate 90 meq/ Potassium Chloride 50 meq/ Potassium Acetate 15 meq/Potassium Phosphate 10 mmol/ Magnesium Sulfate 50 meq/ Multivitamins/ Minerals 10 ml/ Chromium/Copper/ Manganese/Seleni/ Zn 1 ml/Total Parenteral Nutrition/Amino Acids/Dextrose/ Fat Emuls... 1,920 ml @ 80 mls/hr TPN CONT IV Last administered on 07/22/16 20:53; Start 07/22/16 at 22:00; Stop 07/23/16 at 21:59; Status DC Sodium Chloride/ Sodium Acetate/ Potassium Chloride/ Potassium Acetate/ Potassium Phosphate/ Magnesium Sulfate/ Multivitamins/ Minerals/Chromium/ Copper /Manganese/ Seleni/Zn/Total Parenteral Nutrition/Amino Acids/Dextrose/ Fat Emulsion Intravenous (Sodium Chloride/ Potass... 1,920 ml @ 80 mls/hr TPN CONT IV Last administered on 07/23/16 21:16; Start 07/23/16 at 22:00; Stop 07/24 at 21:59; Status DC Gentamicin Sulfate 1 each 1 each 1X ONCE MC ; Start 07/23/16 at 22:00; Stop 07/23 at 22:01; Status Cancel Sodium Chloride/ Sodium Acetate/ Potassium Chloride/ Potassium Acetate/ Potassium Phosphate/ Magnesium Sulfate/ Multivitamins/ Minerals/Chromium/ Copper /Manganese/ Seleni/Zn/Total Parenteral Nutrition/Amino Acids/Dextrose/ Fat Emulsion Intravenous (Sodium Chloride/ Potass... 1,920 ml @ 80 mls/hr TPN CONT IV Last administered on 07/24/16 21:15; Start 07/24/16 at 22:00; Stop 04/30 at 21:59; Status DC Gentamicin Sulfate 1 each 1X ONCE MC ; Start 07/25/16 at 12:30; Stop 07/25/16 at 12:31; Status Cancel Amlodipine Besylate 5 mg 5 mg DAILY PO Last administered on 07/27/16 11:12; Start 07/25/16 at 12:00; Stop 07/29/16 at 08:44; Status DC Sodium Chloride 220 meq/Sodium Acetate 90 meq/ Potassium Chloride 30 meq/ Potassium Acetate 15 meq/Potassium Phosphate 10 mmol/ Magnesium Sulfate 50 meq/ Multivitamins/ Minerals 10 ml/ Chromium/Copper/ Manganese/Seleni/ Zn 1 ml/Total Parenteral Nutrition/Amino Acids/Dextrose/ Fat Emuls... 1,920 ml @ 80 mls/hr TPN CONT IV Last administered on 07/25/16 22:25; Start 07/25/16 at 22:00; Stop 07/26/16 at 21:59; Status DC Sodium Chloride/ Sodium Acetate/ Potassium Chloride/ Potassium Acetate/ Potassium Phosphate/ Magnesium Sulfate/ Multivitamins/ Minerals/Chromium/ Copper /Manganese/ Seleni/Zn/Total Parenteral Nutrition/Amino Acids/Dextrose/ Fat Emulsion Intravenous (Sodium Chloride/ Potass... 1,920 ml @ 80 mls/hr TPN CONT IV Last administered on 07/26/16 23:16; Start 07/26/16 at 22:00; Stop at 21:59; Status DC Furosemide 20 mg 20 mg 1X ONCE IVP Last administered on 07/27/16 11:31; Start 07/27/16 at 09:00; Stop 07/27/16 at 09:01; Status DC Daptomycin 340 mg/ Sodium Chloride 50 ml @ 100 mls/hr Q24H IV Last administered on 07/29/16 15:05; Start 07/27/16 at 13:00; Stop 07/30/16 at 07:25 ; Status DC Piperacillin Sod/ Tazobactam Sod 3.375 gm/Sodium Chloride 50 ml @ 100 mls/hr Q6HRS IV Last administered on 07/30/16 05:30; Start 07/27/16 at 12:30; Stop at 07:25; Status DC Fluconazole/ Sodium Chloride 100 ml @ 100 mls/hr Q24H IV Last administered on 07/28/16 13:32; Start 07/27/16 at 13:00; Stop 07/29/16 at 00:53; Status DC Sodium Chloride 1,000 ml @ 1,000 mls/hr 1X ONCE IV Last administered on 12:34; Start 07/27/16 at 12:30; Stop 07/27/16 at 13:29; Status DC Sodium Chloride 220 meq/Sodium Acetate 90 meq/ Potassium Chloride 30 meq/ Potassium Acetate 15 meq/Potassium Phosphate 10 mmol/ Magnesium Sulfate 45 meq/ Multivitamins/ Minerals 10 ml/ Chromium/Copper/ Manganese/Seleni/ Zn 1 ml/Total Parenteral Nutrition/Amino Acids/Dextrose/ Fat Emuls... 1,920 ml @ 80 mls/hr TPN CONT IV Last administered on 07/27/16 22:38; Start 07/27/16 at 22:00; Stop 07/28/16 at 21:59; Status DC Sodium Chloride (Iv Sodium Chloride 0.9% 1000ml Bag) 1,000 ml @ 45 mls/hr [id number] IV Last administered on 07/28/16 03:24; Start 07/27/16 at 17:00; Stop 07/28/16 at 10:27; Status DC Acetaminophen 650 mg 650 mg PRN Q6HRS PRN [place] fever Last administered on 03:57; Start 07/27/16 at 16:30; Stop 07/29/16 at 08:33; Status DC Sodium Chloride 1,000 ml @ 427.5 mls/ hr Q2H21M IV Last administered on 19:30; Start 07/27/16 at 19:30; Stop 07/27/16 at 23:30; Status DC Sodium Chloride 220 meq/Sodium Acetate 90 meq/ Potassium Chloride 30 meq/ Potassium Acetate 15 meq/Potassium Phosphate 10 mmol/ Magnesium Sulfate 45 meq/ Multivitamins/ Minerals 10 ml/ Chromium/Copper/ Manganese/Seleni/ Zn 1 ml/Total Parenteral Nutrition/Amino Acids/Dextrose/ Fat Emuls... 1,920 ml @ 80 mls/hr TPN CONT IV Last administered on 07/28/16 21:43; Start 07/28/16 at 22:00; Stop 07/29/16 at 21:59; Status DC Micafungin Sodium/ Dextrose (Mycamine) 100 ml @ 100 mls/hr Q24H IV Last administered on 08/10/16 01:05; Start 07/29/16 at 01:00 Lorazepam (Ativan) 0.05 mg PRN Q4HRS PRN IV ANXIETY / AGITATION; Start at 02:30; Stop 07/29/16 at 02:48; Status DC Lorazepam (Ativan) 0.5 mg PRN Q4HRS PRN IV ANXIETY / AGITATION Last administered on 08/09/16 17:19; Start 07/29/16 at 03:00 Acetaminophen (Tylenol) 650 mg PRN Q4HRS PRN FL MILD PAIN / TEMP; Start at 08:30 Ketorolac Tromethamine (Toradol) 30 mg PRN Q6HRS PRN IV PAIN/FEVER Last administered on 07/30/16 00:50; Start 07/29/16 at 08:30; Stop 07/30/16 at 13:01 ; Status DC Pantoprazole Sodium 40 mg 40 mg DAILYAC IVP Last administered on 08/10/16 08: 13; Start 07/29/16 at 09:00 Sodium Chloride 1,000 ml @ 45 mls/hr [id number] IV Last administered on 09:17; Start 07/29/16 at 08:45; Stop 07/31/16 at 15:01; Status DC Sodium Chloride/ Sodium Acetate/ Potassium Chloride/ Potassium Acetate/ Potassium Phosphate/ Magnesium Sulfate/ Multivitamins/ Minerals/Chromium/ Copper /Manganese/ Seleni/Zn/Total Parenteral Nutrition/Amino Acids/Dextrose/ Fat Emulsion Intravenous (Sodium Chloride/ Potass... 1,920 ml @ 80 mls/hr TPN CONT IV Last administered on 07/29/16 22:06; Start 07/29/16 at 22:00; Stop at 21:59; Status DC Lidocaine/Sodium Bicarbonate 20 ml 20 ml STK-MED ONCE IJ ; Start 07/29/16 at 13: 13; Stop 07/29/16 at 13:14; Status DC Heparin Sodium/ Sodium Chloride 500 ml @ As Directed STK-MED ONCE .ROUTE ; Start 07/29/16 at 13:13; Stop 07/29/16 at 13:14; Status DC Lidocaine/ Epinephrine (Xylocaine 1%-Epi 1:100,000) 20 ml STK-MED ONCE .ROUTE ; Start 07/29/16 at 13:22; Stop 07/29/16 at 13:23; Status DC Midazolam HCl (Versed) 5 mg STK-MED ONCE .ROUTE ; Start 07/29/16 at 13:32; Stop 07/29/16 at 13:33; Status DC Fentanyl Citrate (Fentanyl 5ml Vial) 250 mcg STK-MED ONCE .ROUTE ; Start at 13:32; Stop 07/29/16 at 13:33; Status DC Heparin Sodium/ Sodium Chloride 1,000 unit 1X ONCE IART Last administered on 13:45; Start 07/29/16 at 13:45; Stop 07/29/16 at 13:48; Status DC Midazolam HCl (Versed) 5 mg 1X ONCE IV Last administered on 07/29/16 13:45; Start 07/29/16 at 13:45; Stop 07/29/16 at 13:48; Status DC Fentanyl Citrate (Fentanyl 5ml Vial) 250 mcg 1X ONCE IV Last administered on 13:45; Start 07/29/16 at 13:45; Stop 07/29/16 at 13:48; Status DC Lidocaine/ Epinephrine 20 ml 20 ml 1X ONCE IJ Last administered on 07/29/16 13:45; Start 07/29/16 at 13:45; Stop 07/29/16 at 13:48; Status DC Sodium Chloride 220 meq/Sodium Acetate 90 meq/ Potassium Chloride 15 meq/ Potassium Acetate 30 meq/Potassium Phosphate 10 mmol/ Magnesium Sulfate 45 meq/ Multivitamins/ Minerals 10 ml/ Chromium/Copper/ Manganese/Seleni/ Zn 1 ml/Total Parenteral Nutrition/Amino Acids/Dextrose/ Fat Emuls... 1,920 ml @ 80 mls/hr TPN CONT IV ; Start 07/30/16 at 22:00; Stop 07/31/16 at 21:59; Status DC Norepinephrine Bitartrate 8 mg/ Sodium Chloride 258 ml @ 1.93 mls/hr 1X ONCE IV Last administered on 07/30/16 11:17; Start 07/30/16 at 11:15; Stop at 15:43; Status DC Norepinephrine Bitartrate/Sodium Chloride (Levophed Vial/ Iv Sodium Chloride 0.9 % 250ml) 258 ml @ 0 mls/hr CONT PRN IV SEE I/O RECORD Last administered on 08/02 19:54; Start 07/30/16 at 11:15; Stop 08/04/16 at 09:29; Status DC Furosemide 60 mg 60 mg 1X ONCE IVP Last administered on 07/30/16 11:14; Start 07/30/16 at 11:15; Stop 07/30/16 at 11:16; Status DC Sodium Chloride 500 ml @ 500 mls/hr Q1H IV Last administered on 07/30/16 17: 04; Start 07/30/16 at 14:30; Stop 07/30/16 at 15:29; Status DC Albumin Human 100 ml @ 100 mls/hr Q8HRS IV Last administered on 07/31/16 05: 37; Start 07/30/16 at 14:30; Stop 07/31/16 at 06:59; Status DC Furosemide/Sodium Chloride (Lasix Drip/Iv Sodium Chloride 0.9% 100ml) 100 ml @ 0 mls/hr CONT PRN IV SEE I/O RECORD Last administered on 07/31/16 03:17; Start 07/30/16 at 14:30; Stop 08/01/16 at 13:19; Status DC Ondansetron HCl (Zofran) 8 mg PRN Q8HRS PRN IV NAUSEA/VOMITING Last administered on 07/30/16 14:38; Start 07/30/16 at 14:30 Sodium Bicarbonate 50 meq 50 meq 1X ONCE IV Last administered on 07/30/16 14: 43; Start 07/30/16 at 14:30; Stop 07/30/16 at 14:31; Status DC Heparin Sodium/ Sodium Chloride 500 ml @ As Directed STK-MED ONCE .ROUTE ; Start 07/30/16 at 14:49; Stop 07/30/16 at 14:50; Status DC Lidocaine HCl 20 ml STK-MED ONCE .ROUTE ; Start 07/30/16 at 14:49; Stop at 14:50; Status DC Midazolam HCl (Versed) 2 mg STK-MED ONCE .ROUTE ; Start 07/30/16 at 15:19; Stop 07/30/16 at 15:20; Status DC Heparin Sodium/ Sodium Chloride 1,000 unit 1X ONCE IART Last administered on 15:44; Start 07/30/16 at 15:45; Stop 07/30/16 at 15:46; Status DC Midazolam HCl (Versed) 1.5 mg 1X ONCE IV Last administered on 07/30/16 15:44 ; Start 07/30/16 at 15:45; Stop 07/30/16 at 15:46; Status DC Lidocaine HCl 20 ml 1X ONCE IJ Last administered on 07/30/16 15:44; Start at 15:45; Stop 07/30/16 at 15:46; Status DC Heparin Sodium (Porcine) 32990 unit 10,000 unit STK-MED ONCE .ROUTE ; Start at 15:54; Stop 07/30/16 at 15:55; Status DC Fentanyl Citrate 30 ml @ 0 mls/hr CONT PRN PRN IV PROTOCOL Last administered on 08/08/16 10:21; Start 07/30/16 at 16:45; Stop 08/08/16 at 11:03; Status DC Sodium Bicarbonate/ Dextrose 1,150 ml @ 125 mls/hr 1X ONCE IV Last administered on 07/30/16 18:34; Start 07/30/16 at 17:30; Stop 07/31/16 at 02:41 ; Status DC Succinylcholine Chloride 200 mg 200 mg STK-MED ONCE .ROUTE ; Start 07/30/16 at 19:47; Stop 07/30/16 at 19:48; Status DC Propofol 100 ml @ As Directed STK-MED ONCE IV ; Start 07/30/16 at 19:48; Stop 07/30/16 at 19:49; Status DC Midazolam HCl (Versed 100mg/ 100ml Premix) 100 ml @ 0 mls/hr CONT PRN IV SEE I/ O RECORD Last administered on 08/03/16 12:18; Start 07/30/16 at 21:15 Sodium Bicarbonate 50 meq 50 meq 1X ONCE IV Last administered on 07/30/16 22: 15; Start 07/30/16 at 22:30; Stop 07/30/16 at 22:31; Status DC Dopamine HCl/ Dextrose 250 ml @ 11.513 mls/ hr CONT PRN IV SEE I/O RECORD Last administered on 07/31/16 20:16; Start 07/30/16 at 22:15; Stop 08/04/16 at 09:29; Status DC Sodium Bicarbonate/ Dextrose 1,150 ml @ 125 mls/hr Q9H12M IV Last administered on 08/01/16 09:30; Start 07/31/16 at 03:00; Stop 08/01/16 at 13:19 ; Status DC Propofol (Diprivan) 1,000 mg STK-MED ONCE IV ; Start 07/30/16 at 20:00; Stop at 08:16; Status DC Succinylcholine Chloride 200 mg 200 mg STK-MED ONCE .ROUTE ; Start 07/30/16 at 20:00; Stop 07/31/16 at 08:16; Status DC Tigecycline 50 mg/ Sodium Chloride 50 ml @ 100 mls/hr Q12HR IV Last administered on 08/04/16 09:01; Start 07/31/16 at 21:00; Stop 08/04/16 at 10:00 ; Status DC Tigecycline/ Sodium Chloride (Tygacil/Iv Sodium Chloride 0.9% 100ml) 100 ml @ 200 mls/hr 1X ONCE IV Last administered on 07/31/16 09:22; Start 07/31/16 at 09:00; Stop 07/31/16 at 09:29; Status DC Darbepoetin Sarbjit 60 mcg 60 mcg WEEKLYHS SQ Last administered on 08/07/16 21:41 ; Start 07/31/16 at 21:00 Albumin Human 100 ml @ 100 mls/hr 1X ONCE IV Last administered on 07/31/16 11:40; Start 07/31/16 at 11:15; Stop 07/31/16 at 12:14; Status DC Albumin Human 100 ml @ 100 mls/hr 1X ONCE IV Last administered on 07/31/16 12:03; Start 07/31/16 at 11:15; Stop 07/31/16 at 12:14; Status DC Sodium Chloride (Iv Sodium Chloride 0.9% 1000ml Bag) 1,000 ml @ 1,000 mls/hr Q1H PRN IV hypotension; Start 07/31/16 at 11:33; Stop 07/31/16 at 17:32; Status DC Info (PHARMACY MONITORING -- do not chart) 1 each PRN DAILY PRN MC SEE COMMENTS ; Start 07/31/16 at 11:45 Info (PHARMACY MONITORING -- do not chart) 1 each PRN DAILY PRN MC SEE COMMENTS ; Start 07/31/16 at 11:45; Status UNV Hydrocortisone Sodium Succinate (Solu-Cortef) 100 mg Q8HRS IV Last administered on 08/04/16 06:16; Start 08/01/16 at 07:00; Stop 08/04/16 at 09:29 ; Status DC Albuterol/ Ipratropium (Duoneb) 3 ml RTQID NEB Last administered on 08/10/16 08:30; Start 08/01/16 at 08:00 Albuterol/ Ipratropium 3 ml 3 ml STK-MED ONCE .ROUTE Last administered on 07:34; Start 08/01/16 at 06:59; Stop 08/01/16 at 07:00; Status DC Sodium Chloride 1,000 ml @ 1,000 mls/hr Q1H PRN IV hypotension; Start 08/01/16 at 06:57; Stop 08/01/16 at 12:56; Status DC Albumin Human (Albuminar) 200 ml @ 200 mls/hr 1X PRN PRN IV Hypotension; Start 08/01/16 at 07:00; Stop 08/01/16 at 12:59; Status DC Info (PHARMACY MONITORING -- do not chart) 1 each PRN DAILY PRN MC SEE COMMENTS ; Start 08/01/16 at 07:00; Status UNV Info 1 each 1 each PRN DAILY PRN MC SEE COMMENTS Last administered on 14:12; Start 08/01/16 at 13:30 Sodium Chloride 220 meq/Sodium Acetate 90 meq/ Potassium Chloride 15 meq/ Potassium Acetate 30 meq/Potassium Phosphate 10 mmol/ Magnesium Sulfate 45 meq/ Multivitamins/ Minerals 10 ml/ Chromium/Copper/ Manganese/Seleni/ Zn 1 ml/Total Parenteral Nutrition/Amino Acids/Dextrose/ Fat Emuls... 1,920 ml @ 80 mls/hr TPN CONT IV Last administered on 08/01/16 21:56; Start 08/01/16 at 22:00; Stop 08/02/16 at 21:59; Status DC Potassium Chloride (KCl Premix 20meq) 50 ml @ 50 mls/hr Q1H IV Last administered on 08/01/16 19:05; Start 08/01/16 at 17:00; Stop 08/01/16 at 18:59 ; Status DC Insulin Aspart 0-6 UNITS TIDWMEALS SQ Last administered on 08/02/16 11:33; Start 08/02/16 at 12:00; Stop 08/02/16 at 14:34; Status DC Sodium Chloride 220 meq/Sodium Acetate 90 meq/ Potassium Chloride 15 meq/ Potassium Acetate 30 meq/Magnesium Sulfate 45 meq/ Multivitamins/ Minerals 10 ml / Chromium/Copper/ Manganese/Seleni/ Zn 1 ml/Total Parenteral Nutrition/Amino Acids/Dextrose/ Fat Emulsion Intravenous 1,920 ml @ 80 mls/hr TPN CONT IV Last administered on 08/02/16 21:34; Start 08/02/16 at 22:00; Stop 08/03/16 at 21:59; Status DC Levofloxacin/ Dextrose 150 ml @ 100 mls/hr 1X ONCE IV Last administered on 14:35; Start 08/02/16 at 14:00; Stop 08/02/16 at 15:29; Status DC Daptomycin/Sodium Chloride (Cubicin/Iv Sodium Chloride 0.9% 50ml) 50 ml @ 100 mls/hr ONCE ONCE IV Last administered on 08/02/16 14:34; Start 08/02/16 at 15 :00; Stop 08/02/16 at 15:29; Status DC Insulin Aspart 0-6 UNITS Q6HRS SQ Last administered on 08/09/16 16:59; Start 08/02/16 at 18:00 Sodium Chloride (Iv Sodium Chloride 0.9% 1000ml Bag) 1,000 ml @ 1,000 mls/hr Q1H PRN IV hypotension; Start 08/03/16 at 07:26; Stop 08/03/16 at 13:25; Status DC Diphenhydramine HCl (Benadryl) 25 mg 1X PRN PRN IV ITCHING; Start 08/03/16 at 07:30; Stop 08/04/16 at 07:29; Status DC Diphenhydramine HCl (Benadryl) 25 mg 1X PRN PRN IV ITCHING; Start 08/03/16 at 07:30; Stop 08/04/16 at 07:29; Status DC Sodium Chloride (Normal Saline Flush) 10 ml 1X PRN PRN IV AP catheter pack; Start 08/03/16 at 07:30; Stop 08/04/16 at 07:29; Status DC Sodium Chloride 10 ml 10 ml 1X PRN PRN IV EX[employer]IVE [employer]IDENT AND [employer]IE[employer]PERATING OFFICER catheter pack; Start 08/03/16 at 07:30; Stop 08/04/16 at 07:29; Status DC Sodium Chloride (Iv Sodium Chloride 0.9% 1000ml Bag) 1,000 ml @ 400 mls/hr Q2H30M PRN IV PATENCY; Start 08/03/16 at 07:26; Stop 08/03/16 at 19:25; Status DC Info 1 each 1 each PRN DAILY PRN MC SEE COMMENTS; Start 08/03/16 at 07:30; Status UNV Albumin Human 200 ml @ 200 mls/hr Q2HR IV Last administered on 08/03/16 10:00 ; Start 08/03/16 at 08:44; Stop 08/03/16 at 10:59; Status DC Sodium Chloride 160 meq/Sodium Acetate 60 meq/ Potassium Chloride 15 meq/ Potassium Acetate 30 meq/Magnesium Sulfate 25 meq/ Multivitamins/ Minerals 10 ml / Chromium/Copper/ Manganese/Seleni/ Zn 1 ml/Total Parenteral Nutrition/Amino Acids/Dextrose/ Fat Emulsion Intravenous 1,500 ml @ 62.5 mls/hr TPN CONT IV Last administered on 08/03/16 22:52; Start 08/03/16 at 22:00; Stop 08/04/16 at 21:59; Status DC Levofloxacin/ Dextrose 100 ml @ 100 mls/hr 1X ONCE IV Last administered on 10:50; Start 08/04/16 at 07:30; Stop 08/04/16 at 08:30; Status DC Daptomycin 450 mg/ Sodium Chloride 50 ml @ 100 mls/hr ONCE ONCE IV Last administered on 08/04/16 09:55; Start 08/04/16 at 08:00; Stop 08/04/16 at 08:30 ; Status DC Tigecycline/ Sodium Chloride (Tygacil/Iv Sodium Chloride 0.9% 50ml) 50 ml @ 100 mls/hr Q12HR IV Last administered on 08/09/16 07:20; Start 08/04/16 at 21: 00; Stop 08/09/16 at 09:42; Status DC Hydrocortisone Sodium Succinate 50 mg 50 mg Q8HRS IV Last administered on 05:39; Start 08/04/16 at 14:00; Stop 08/05/16 at 11:12; Status DC Furosemide 100 mg/ Sodium Chloride 100 ml @ 0 mls/hr CONT PRN IV SEE I/O RECORD Last administered on 08/09/16 06:43; Start 08/04/16 at 11:30; Stop 08/09 at 11:31; Status DC Sodium Chloride 160 meq/Sodium Acetate 60 meq/ Potassium Chloride 15 meq/ Potassium Acetate 30 meq/Magnesium Sulfate 25 meq/ Multivitamins/ Minerals 10 ml / Chromium/Copper/ Manganese/Seleni/ Zn 1 ml/Total Parenteral Nutrition/Amino Acids/Dextrose/ Fat Emulsion Intravenous 1,500 ml @ 62.5 mls/hr TPN CONT IV Last administered on 08/04/16 21:45; Start 08/04/16 at 22:00; Stop 08/06/16 at 08:48; Status DC Sodium Chloride 1,000 ml @ 1,000 mls/hr Q1H PRN IV hypotension; Start 08/04/16 at 12:00; Stop 08/04/16 at 17:59; Status DC Sodium Chloride (Iv Sodium Chloride 0.9% 1000ml Bag) 1,000 ml @ 400 mls/hr Q2H30M PRN IV PATENCY; Start 08/04/16 at 12:00; Stop 08/04/16 at 23:59; Status DC Info 1 each 1 each PRN DAILY PRN MC SEE COMMENTS; Start 08/04/16 at 16:30; Status UNV Levofloxacin/ Dextrose 100 ml @ 100 mls/hr 1X ONCE IV Last administered on 14:27; Start 08/05/16 at 14:00; Stop 08/05/16 at 14:59; Status DC Daptomycin/Sodium Chloride (Cubicin/Iv Sodium Chloride 0.9% 50ml) 50 ml @ 100 mls/hr 1X ONCE IV Last administered on 08/05/16 14:27; Start 08/05/16 at 14: 00; Stop 08/05/16 at 14:29; Status DC Heparin Sodium (Porcine) 10,000 unit STK-MED ONCE .ROUTE ; Start 08/05/16 at 09: 35; Stop 08/05/16 at 09:36; Status DC Lidocaine/Sodium Bicarbonate 20 ml 20 ml STK-MED ONCE IJ ; Start 08/05/16 at 09: 36; Stop 08/05/16 at 09:37; Status DC Heparin Sodium/ Sodium Chloride 500 ml @ As Directed STK-MED ONCE .ROUTE ; Start 08/05/16 at 09:36; Stop 08/05/16 at 09:37; Status DC Lidocaine/Sodium Bicarbonate (Buffered Lidocaine 1%) 2 ml 1X ONCE IJ Last administered on 08/05/16 10:04; Start 08/05/16 at 10:00; Stop 08/05/16 at 10:02 ; Status DC Heparin Sodium/ Sodium Chloride 60 unit 1X ONCE IV Last administered on 10:04; Start 08/05/16 at 10:00; Stop 08/05/16 at 10:02; Status DC Heparin Sodium (Porcine) 2,800 unit 1X ONCE INT CAT Last administered on 10:04; Start 08/05/16 at 10:00; Stop 08/05/16 at 10:02; Status DC Info (PHARMACY MONITORING -- do not chart) 1 each PRN DAILY PRN MC SEE COMMENTS ; Start 08/05/16 at 10:30; Stop 08/05/16 at 10:30; Status DC Info (PHARMACY MONITORING -- do not chart) 1 each PRN DAILY PRN MC SEE COMMENTS ; Start 08/05/16 at 10:30; Stop 08/05/16 at 10:30; Status DC Hydrocortisone Sodium Succinate 50 mg 50 mg BID IV Last administered on 07:49; Start 08/05/16 at 21:00; Stop 08/07/16 at 10:23; Status DC Sodium Chloride 160 meq/Sodium Acetate 60 meq/ Potassium Chloride 15 meq/ Potassium Acetate 30 meq/Magnesium Sulfate 25 meq/ Multivitamins/ Minerals 10 ml / Chromium/Copper/ Manganese/Seleni/ Zn 1 ml/Total Parenteral Nutrition/Amino Acids/Dextrose/ Fat Emulsion Intravenous 1,500 ml @ 62.5 mls/hr TPN CONT IV Last administered on 08/05/16 22:04; Start 08/05/16 at 22:00; Stop 08/06/16 at 21:59; Status DC Daptomycin 500 mg/ Sodium Chloride 50 ml @ 100 mls/hr Q24H IV Last administered on 08/09/16 13:44; Start 08/06/16 at 14:00 Sodium Chloride (Iv Sodium Chloride 0.9% 1000ml Bag) 1,000 ml @ 1,000 mls/hr Q1H PRN IV hypotension; Start 08/06/16 at 08:21; Stop 08/06/16 at 14:20; Status DC Diphenhydramine HCl (Benadryl) 25 mg 1X PRN PRN IV ITCHING; Start 08/06/16 at 08:30; Stop 08/07/16 at 08:29; Status DC Diphenhydramine HCl (Benadryl) 25 mg 1X PRN PRN IV ITCHING; Start 08/06/16 at 08:30; Stop 08/07/16 at 08:29; Status DC Sodium Chloride (Normal Saline Flush) 10 ml 1X PRN PRN IV AP catheter pack; Start 08/06/16 at 08:30; Stop 08/07/16 at 08:29; Status DC Sodium Chloride 10 ml 10 ml 1X PRN PRN IV [employer]EC[employer]IVE [employer]IDENT AND [employer]IE[employer]PERATING OFFICER catheter pack; Start 08/06/16 at 08:30; Stop 08/07/16 at 08:29; Status DC Sodium Chloride (Iv Sodium Chloride 0.9% 1000ml Bag) 1,000 ml @ 400 mls/hr Q2H30M PRN IV PATENCY; Start 08/06/16 at 08:21; Stop 08/06/16 at 20:20; Status DC Info 1 each 1 each PRN DAILY PRN MC SEE COMMENTS; Start 08/06/16 at 08:30; Status UNV Albumin Human 200 ml @ 200 mls/hr 1X STAT IV Last administered on 08/06/16 10:09; Start 08/06/16 at 09:52; Stop 08/06/16 at 10:51; Status DC Sodium Chloride/ Sodium Acetate/ Potassium Chloride/ Potassium Acetate/ Magnesium Sulfate/ Multivitamins/ Minerals/Chromium/ Copper/Manganese/ Seleni/Zn /Total Parenteral Nutrition/Amino Acids/Dextrose/ Fat Emulsion Intravenous ( Sodium Chloride/ Infuvite Adult/ Multitrace-5 Conc/ Tpn - Tpn Flu... 1,500 ml @ 62.5 mls/hr TPN CONT IV Last administered on 08/06/16 21:57; Start at 22:00; Stop 08/07/16 at 21:59; Status DC Darbepoetin Sarbjit 60 mcg 60 mcg [id number] SQ ; Start 08/07/16 at 21:00; Status UNV Potassium Chloride (KCl Premix 20meq) 50 ml @ 50 mls/hr Q1H IV Last administered on 08/07/16 10:46; Start 08/07/16 at 08:00; Stop 08/07/16 at 09:59 ; Status DC Hydrocortisone Sodium Succinate 25 mg 25 mg BID IV ; Start 08/07/16 at 21:00; Stop 08/07/16 at 21:00; Status DC Sodium Chloride (Iv Sodium Chloride 0.9% 1000ml Bag) 1,000 ml @ 1,000 mls/hr Q1H PRN IV hypotension; Start 08/07/16 at 12:08; Stop 08/07/16 at 18:07; Status DC Diphenhydramine HCl (Benadryl) 25 mg 1X PRN PRN IV ITCHING; Start 08/07/16 at 12:15; Stop 08/08/16 at 12:14; Status DC Diphenhydramine HCl (Benadryl) 25 mg 1X PRN PRN IV ITCHING; Start 08/07/16 at 12:15; Stop 08/08/16 at 12:14; Status DC Sodium Chloride (Normal Saline Flush) 10 ml 1X PRN PRN IV AP catheter pack; Start 08/07/16 at 12:15; Stop 08/08/16 at 12:14; Status DC Sodium Chloride (Normal Saline Flush) 10 ml 1X PRN PRN IV EXEC[employer]IVE [employer]IDENT AND [employer]IE[employer]PERATING OFFICER catheter pack; Start 08/07/16 at 12:15; Stop 08/08/16 at 12:14; Status DC Info (PHARMACY MONITORING -- do not chart) 1 each PRN DAILY PRN MC SEE COMMENTS ; Start 08/07/16 at 12:15; Status UNV Info 1 each 1 each PRN DAILY PRN MC SEE COMMENTS; Start 08/07/16 at 12:15; Status UNV Sodium Chloride 160 meq/Sodium Acetate 60 meq/ Potassium Chloride 55 meq/ Potassium Acetate 30 meq/Magnesium Sulfate 25 meq/ Multivitamins/ Minerals 10 ml / Chromium/Copper/ Manganese/Seleni/ Zn 1 ml/Total Parenteral Nutrition/Amino Acids/Dextrose/ Fat Emulsion Intravenous 1,500 ml @ 62.5 mls/hr TPN CONT IV Last administered on 08/07/16 21:41; Start 08/07/16 at 22:00; Stop 08/08/16 at 21:59; Status DC Potassium Chloride (KCl Premix 20meq) 50 ml @ 50 mls/hr 1X ONCE IV Last administered on 08/08/16 09:04; Start 08/08/16 at 10:00; Stop 08/08/16 at 10:59 ; Status DC Fentanyl Citrate 25 mcg 25 mcg PRN Q4HRS PRN IV PAIN Last administered on 15:04; Start 08/08/16 at 11:00 Potassium Chloride 50 ml @ 50 mls/hr 1X ONCE IV Last administered on 15:33; Start 08/08/16 at 11:15; Stop 08/08/16 at 12:14; Status DC Sodium Chloride 140 meq/Sodium Acetate 60 meq/ Potassium Chloride 70 meq/ Potassium Acetate 30 meq/Magnesium Sulfate 25 meq/ Multivitamins/ Minerals 10 ml / Chromium/Copper/ Manganese/Seleni/ Zn 1 ml/Total Parenteral Nutrition/Amino Acids/Dextrose/ Fat Emulsion Intravenous 1,500 ml @ 62.5 mls/hr TPN CONT IV Last administered on 08/08/16 21:42; Start 08/08/16 at 22:00; Stop 08/09/16 at 11:30; Status DC Tigecycline 50 mg/ Sodium Chloride 50 ml @ 100 mls/hr Q12HR IV ; Start at 09:42; Stop 08/09/16 at 10:03; Status DC Dextrose 1,000 ml @ 80 mls/hr [id number] IV ; Start 08/09/16 at 11:45; Stop at 11:57; Status DC Dextrose/Sodium Chloride 1,000 ml @ 50 mls/hr Q20H IV Last administered on t 12:22; Start 08/09/16 at 12:00 Sodium Chloride/ Sodium Acetate/ Potassium Chloride/ Potassium Acetate/ Magnesium Sulfate/ Multivitamins/ Minerals/Chromium/ Copper/Manganese/ Seleni/Zn /Total Parenteral Nutrition/Amino Acids/Dextrose/ Fat Emulsion Intravenous ( Sodium Chloride/ Infuvite Adult/ Multitrace-5 Conc/ Tpn - Tpn Flu... 1,512 ml @ 63 mls/hr TPN CONT IV ; Start 08/09/16 at 22:00; Stop 08/10/16 at 21:59 Active Scripts Active Dilaudid (Hydromorphone Hcl) 4 Mg Tablet 4 Mg PO Q6HRS Phenazopyridine Hcl 200 Mg Tablet 200 Mg PO PRN TID PRN FENTANYL 50mcg/hr (Fentanyl) 1 Each Patch.td72 1 Patch TD Q3DAYS Anaspaz (Hyoscyamine Sulfate) 0.125 Mg Tab.rapdis 0.125 Mg PO Q6HRS PRN Cefpodoxime Proxetil 200 Mg Tablet 200 Mg PO BID Sertraline Hcl 50 Mg Tablet 100 Mg PO DAILY 30 Days Protonix (Pantoprazole Sodium) 40 Mg Tablet.dr 1 Tab PO DAILY Zinc Oxide 56.7 Gm Oint...g. 1 Sang TP BID Lidocaine 35.44 Gm Oint...g. 1 Sang TP BID Ondansetron Odt (Ondansetron) 4 Mg Tab.rapdis 8 Mg PO PRN Q8HRS PRN Gas-X (Simethicone) 80 Mg Tab.chew 80 Mg PO PRN QID PRN Reported Lorazepam 0.5 Mg Tablet 0.5 Mg PO PRN BID PRN Vitals/I & O Vital Sign - Last 24 Hours 08/09/16 08/09/16 08/09/16 08/09/16 10:00 11:00 11:38 12:00 Pulse 106 110 Resp 16 20 B/P 126/73 154/78 Pulse Ox 100 100 100 O2 Delivery Ventilator Ventilator Ventilator Mechanical Ventilator 08/09/16 08/09/16 08/09/16 08/09/16 12:00 13:00 14:00 15:00 Temp 97.8 97.8 97.8 97.8 Pulse 108 94 99 95 Resp 14 15 16 16 B/P 133/84 158/89 169/82 169/87 Pulse Ox 100 100 100 100 O2 Delivery Ventilator Ventilator Ventilator Ventilator 08/09/16 08/09/16 08/09/16 08/09/16 15:04 15:34 16:00 16:00 Temp 97.6 97.6 Pulse 96 Resp 17 17 16 B/P 173/76 Pulse Ox 100 100 100 O2 Delivery Ventilator Ventilator Mechanical Ventilator Ventilator 08/09/16 08/09/16 08/09/16 08/09/16 16:22 17:00 18:00 19:00 Pulse 96 113 114 Resp 14 14 16 B/P 145/85 170/80 143/80 Pulse Ox 100 100 100 100 O2 Delivery Ventilator Ventilator Ventilator Ventilator 08/09/16 08/09/16 08/09/16 08/09/16 20:00 20:00 20:40 21:00 Temp 98.1 98.1 Pulse 111 110 Resp 16 14 B/P 162/82 154/88 Pulse Ox 100 100 100 O2 Delivery Mechanical Ventilator Ventilator Ventilator Ventilator 08/09/16 08/09/16 08/09/16 08/10/16 22:00 23:00 23:46 00:00 Pulse 108 94 Resp 15 14 B/P 124/73 123/68 Pulse Ox 100 100 100 O2 Delivery Ventilator Ventilator Ventilator Mechanical Ventilator 08/10/16 08/10/16 08/10/16 08/10/16 00:00 01:00 01:31 02:00 Temp 97.3 97.3 Pulse 94 107 98 Resp 15 15 15 B/P 138/76 157/90 158/92 Pulse Ox 100 100 100 100 O2 Delivery Ventilator Ventilator Ventilator Ventilator 08/10/16 08/10/16 08/10/16 08/10/16 03:00 03:35 04:00 04:00 Temp 98.2 98.2 Pulse 104 99 Resp 14 14 B/P 132/78 154/81 Pulse Ox 100 100 100 O2 Delivery Ventilator Ventilator Ventilator Mechanical Ventilator 08/10/16 08/10/16 08/10/16 08/10/16 05:00 05:49 06:00 08:10 Pulse 98 88 Resp 14 14 B/P 148/85 154/76 Pulse Ox 100 100 100 100 O2 Delivery Ventilator Ventilator Ventilator Ventilator 08/10/16 08:30 O2 Delivery Ventilator Intake and Output 08/09/16 08/09/16 08/10/16 14:59 22:59 06:59 Intake Total 393 ml 413 ml 887 ml Output Total 845 ml 1395 ml 590 ml Balance -452 ml -982 ml 297 ml MATT PALACIOS MD Aug 10, 2016 09:46
--- NOTE | 2016-08-10 09:57 | PDOC ---
PROGRESS NOTES Assessment Problems Medical Problems: (1) Abdominal pain Status: Acute (2) Enterocutaneous fistula Status: Acute (3) Sepsis Status: Acute (4) Urinary tract infection Status: Acute (5) UTI (urinary tract infection) Status: Acute Metabolic encephalopathy. Multiple medical problems including DIC and sepsis Plan Will follow at intervals Subjective None Objective Vital Signs Date Time Temp Pulse Resp B/P Pulse Ox O2 Delivery O2 Flow Rate FiO2 08/10/16 08:30 Ventilator 08/10/16 08:10 100 08/10/16 06:00 88 14 154/76 08/10/16 04:00 98.2 98.2 Intake and Output 08/10/16 07:00 Intake Total 1693 ml Output Total 2710 ml Balance -1017 ml IV Total 806 ml Other 887 ml Output Urine Total 1395 ml Drainage Total 1315 ml PHYSICAL EXAM Alerts to voice, on ventilator PERRL. EOMI CN: no focal findings. Muscle tone: normal. Muscle strength: 2-3/5 DTR: 1+ Plantar reflex: flexor Gait: not examined in bed. Sensory exam: normal. Cerebellar: not tested Review of Relevant I have reviewed the following items lucila (where applicable) has been applied. Labs Laboratory Tests Test 08/08/16 11:40 08/08/16 13:15 08/08/16 18:42 08/09/16 00:18 Glucose (Fingerstick) 134mg/dL (70-99) 126mg/dL (70-99) 137mg/dL (70-99) Potassium Level 3.2mmol/L (3.5-5.1) Test 08/09/16 05:35 08/09/16 05:42 08/09/16 11:04 08/09/16 11:30 White Blood Count 9.2x10^3/uL (4.0-11.0) Red Blood Count 3.31x10^6/uL (3.50-5.40) Hemoglobin 8.5g/dL (12.0-15.5) Hematocrit 27.1% (36.0-47.0) Mean Corpuscular Volume 82fL (79-100) Mean Corpuscular Hemoglobin 26pg (25-35) Mean Corpuscular Hemoglobin Concent 31g/dL (31-37) Red Cell Distribution Width 21.1% (11.5-14.5) Platelet Count 68x10^3/uL (140-400) Neutrophils (%) (Auto) 72% (31-73) Lymphocytes (%) (Auto) 17% (24-48) Monocytes (%) (Auto) 7% (0-9) Eosinophils (%) (Auto) 3% (0-3) Basophils (%) (Auto) 1% (0-3) Neutrophils # (Auto) 6.5x10^3uL (1.8-7.7) Lymphocytes # (Auto) 1.6x10^3/uL (1.0-4.8) Monocytes # (Auto) 0.7x10^3/uL (0.0-1.1) Eosinophils # (Auto) 0.2x10^3/uL (0.0-0.7) Basophils # (Auto) 0.1x10^3/uL (0.0-0.2) Platelet Estimate Decreased (ADEQUATE) Giant Platelets Present Hypochromasia Present Anisocytosis Mod Sodium Level 151mmol/L (136-145) Potassium Level 3.7mmol/L (3.5-5.1) Chloride Level 110mmol/L (98-107) Carbon Dioxide Level 36mmol/L (21-32) Anion Gap 5 (6-14) Blood Urea Nitrogen 76mg/dL (7-20) Creatinine 1.1mg/dL (0.6-1.0) Estimated GFR (Cockcroft-Gault) 61.1 Glucose Level 110mg/dL (70-99) Lactic Acid Level 0.9mmol/L (0.4-2.0) Calcium Level 9.0mg/dL (8.5-10.1) Magnesium Level 2.4mg/dL (1.8-2.4) Vancomycin Level Trough < 0.8mcg/mL (10.0-20.0) Vancomycin Last Dose Date 08/08/16 Vancomycin Last Dose Time 1600 Glucose (Fingerstick) 113mg/dL (70-99) 142mg/dL (70-99) Prothrombin Time 15.3SEC (11.7-14.0) Prothromb Time International Ratio 1.3 (0.8-1.1) Activated Partial Thromboplast Time 37SEC (24-38) Fibrinogen 231mg/dL (200-440) Test 08/09/16 16:20 08/09/16 16:30 08/10/16 00:02 08/10/16 05:45 O2 Saturation 98% (92-99) Arterial Blood pH 7.55 (7.35-7.45) Arterial Blood pCO2 at Patient Temp 33mmHg (35-46) Arterial Blood pO2 at Patient Temp 119mmHg (65-108) Arterial Blood HCO3 28mmol/L (21-28) Arterial Blood Base Excess 6mmol/L (-3-3) FiO2 35 Sodium Level 153mmol/L (136-145) 154mmol/L (136-145) Potassium Level 3.8mmol/L (3.5-5.1) 3.4mmol/L (3.5-5.1) Chloride Level 112mmol/L (98-107) 113mmol/L (98-107) Carbon Dioxide Level 34mmol/L (21-32) 33mmol/L (21-32) Anion Gap 7 (6-14) 8 (6-14) Blood Urea Nitrogen 83mg/dL (7-20) 78mg/dL (7-20) Creatinine 1.2mg/dL (0.6-1.0) 1.0mg/dL (0.6-1.0) Estimated GFR (Cockcroft-Gault) 55.3 68.2 Glucose Level 153mg/dL (70-99) 117mg/dL (70-99) Calcium Level 9.2mg/dL (8.5-10.1) 9.4mg/dL (8.5-10.1) Glucose (Fingerstick) 132mg/dL (70-99) White Blood Count 7.6x10^3/uL (4.0-11.0) Red Blood Count 3.22x10^6/uL (3.50-5.40) Hemoglobin 8.3g/dL (12.0-15.5) Hematocrit 26.5% (36.0-47.0) Mean Corpuscular Volume 82fL (79-100) Mean Corpuscular Hemoglobin 26pg (25-35) Mean Corpuscular Hemoglobin Concent 31g/dL (31-37) Red Cell Distribution Width 21.8% (11.5-14.5) Platelet Count 71x10^3/uL (140-400) Neutrophils (%) (Auto) 74% (31-73) Lymphocytes (%) (Auto) 15% (24-48) Monocytes (%) (Auto) 9% (0-9) Eosinophils (%) (Auto) 1% (0-3) Basophils (%) (Auto) 1% (0-3) Neutrophils # (Auto) 5.6x10^3uL (1.8-7.7) Lymphocytes # (Auto) 1.1x10^3/uL (1.0-4.8) Monocytes # (Auto) 0.7x10^3/uL (0.0-1.1) Eosinophils # (Auto) 0.1x10^3/uL (0.0-0.7) Basophils # (Auto) 0.1x10^3/uL (0.0-0.2) Phosphorus Level 4.2mg/dL (2.6-4.7) Magnesium Level 2.4mg/dL (1.8-2.4) Test 08/10/16 05:47 Glucose (Fingerstick) 109mg/dL (70-99) Laboratory Tests Test 08/09/16 11:04 08/09/16 11:30 08/09/16 16:20 08/09/16 16:30 Glucose (Fingerstick) 142mg/dL (70-99) Prothrombin Time 15.3SEC (11.7-14.0) Prothromb Time International Ratio 1.3 (0.8-1.1) Activated Partial Thromboplast Time 37SEC (24-38) Fibrinogen 231mg/dL (200-440) O2 Saturation 98% (92-99) Arterial Blood pH 7.55 (7.35-7.45) Arterial Blood pCO2 at Patient Temp 33mmHg (35-46) Arterial Blood pO2 at Patient Temp 119mmHg (65-108) Arterial Blood HCO3 28mmol/L (21-28) Arterial Blood Base Excess 6mmol/L (-3-3) FiO2 35 Sodium Level 153mmol/L (136-145) Potassium Level 3.8mmol/L (3.5-5.1) Chloride Level 112mmol/L (98-107) Carbon Dioxide Level 34mmol/L (21-32) Anion Gap 7 (6-14) Blood Urea Nitrogen 83mg/dL (7-20) Creatinine 1.2mg/dL (0.6-1.0) Estimated GFR (Cockcroft-Gault) 55.3 Glucose Level 153mg/dL (70-99) Calcium Level 9.2mg/dL (8.5-10.1) Test 08/10/16 00:02 08/10/16 05:45 08/10/16 05:47 Glucose (Fingerstick) 132mg/dL (70-99) 109mg/dL (70-99) White Blood Count 7.6x10^3/uL (4.0-11.0) Red Blood Count 3.22x10^6/uL (3.50-5.40) Hemoglobin 8.3g/dL (12.0-15.5) Hematocrit 26.5% (36.0-47.0) Mean Corpuscular Volume 82fL (79-100) Mean Corpuscular Hemoglobin 26pg (25-35) Mean Corpuscular Hemoglobin Concent 31g/dL (31-37) Red Cell Distribution Width 21.8% (11.5-14.5) Platelet Count 71x10^3/uL (140-400) Neutrophils (%) (Auto) 74% (31-73) Lymphocytes (%) (Auto) 15% (24-48) Monocytes (%) (Auto) 9% (0-9) Eosinophils (%) (Auto) 1% (0-3) Basophils (%) (Auto) 1% (0-3) Neutrophils # (Auto) 5.6x10^3uL (1.8-7.7) Lymphocytes # (Auto) 1.1x10^3/uL (1.0-4.8) Monocytes # (Auto) 0.7x10^3/uL (0.0-1.1) Eosinophils # (Auto) 0.1x10^3/uL (0.0-0.7) Basophils # (Auto) 0.1x10^3/uL (0.0-0.2) Sodium Level 154mmol/L (136-145) Potassium Level 3.4mmol/L (3.5-5.1) Chloride Level 113mmol/L (98-107) Carbon Dioxide Level 33mmol/L (21-32) Anion Gap 8 (6-14) Blood Urea Nitrogen 78mg/dL (7-20) Creatinine 1.0mg/dL (0.6-1.0) Estimated GFR (Cockcroft-Gault) 68.2 Glucose Level 117mg/dL (70-99) Calcium Level 9.4mg/dL (8.5-10.1) Phosphorus Level 4.2mg/dL (2.6-4.7) Magnesium Level 2.4mg/dL (1.8-2.4) Microbiology 08/01/16 Blood Culture - Final, Complete NO GROWTH AFTER 5 DAYS 07/15/16 Urine Culture - Final, Complete 07/15/16 Urine Culture Result 1 (ROYA) - Final, Complete 07/15/16 Urine Culture Result 2 (ROYA) - Final, Complete 07/15/16 Antimicrobic Susceptibility - Final, Complete 07/29/16 Aerobic Culture - Final, Complete 07/29/16 Aerobic Culture Result 1 (ROYA) - Final, Complete Medications Current Medications Piperacillin Sod/ Tazobactam Sod/ Sodium Chloride (Zosyn/Iv Sodium Chloride 0.9 % 100ml) 100 ml @ 200 mls/hr 1X ONCE IV Last administered on 07/15/16 22:56; Start 07/15/16 at 22:00; Stop 07/15/16 at 22:29; Status DC Fentanyl Citrate 50 mcg 50 mcg PRN Q15MIN PRN IV PAIN GREATER THAN 3/10 Last administered on 07/16/16 00:30; Start 07/15/16 at 21:45; Stop 07/16/16 at 02:00; Status DC Sodium Chloride 1,000 ml @ 1,000 mls/hr 1X ONCE IV Last administered on 21:59; Start 07/15/16 at 22:00; Stop 07/15/16 at 22:59; Status DC Sodium Chloride (Iv Sodium Chloride 0.9% 500ml Bag) 500 ml @ 500 mls/hr 1X ONCE IV Last administered on 07/15/16 22:00; Start 07/15/16 at 22:00; Stop at 22:59; Status DC Ondansetron HCl (Zofran) 4 mg PRN Q8HRS PRN IV NAUSEA/VOMITING; Start 07/15/16 at 23:30; Stop 07/16/16 at 08:52; Status DC Fentanyl Citrate 50 mcg 50 mcg PRN Q2HR PRN IV SEVERE PAIN Last administered on 07/16/16 08:10; Start 07/15/16 at 23:30; Stop 07/16/16 at 08:52; Status DC Sodium Chloride (Iv Sodium Chloride 0.9% 1000ml Bag) 1,000 ml @ 150 mls/hr Q6H40M IV Last administered on 07/15/16 02:00; Start 07/15/16 at 23:45; Stop 07/16/16 at 08:52; Status DC Acetaminophen (Tylenol) 650 mg PRN Q4HRS PRN PO FEVER; Start 07/15/16 at 23:30; Stop 07/16/16 at 23:29; Status DC Info (Do NOT chart on this placeholder) 1 each PRN DAILY PRN MC NEEDS VERIFICATION; Start 07/16/16 at 03:00; Status Cancel Acetaminophen 650 mg 650 mg PRN Q4HRS PRN PO MILD PAIN / TEMP Last administered on 07/28/16 07:42; Start 07/16/16 at 08:45; Stop 07/29/16 at 08:33 ; Status DC Piperacillin Sod/ Tazobactam Sod 3.375 gm/Sodium Chloride 50 ml @ 100 mls/hr Q6HRS IV Last administered on 07/18/16 05:50; Start 07/16/16 at 10:00; Stop 07/18 at 13:28; Status DC Linezolid (Zyvox Premix) 300 ml @ 300 mls/hr Q12HR IV Last administered on 07/18 08:34; Start 07/16/16 at 10:00; Stop 07/18/16 at 13:28; Status DC Hydromorphone HCl (Dilaudid) 2 mg PRN Q4HRS PRN IV MODERATE PAIN Last administered on 08/09/16 06:39; Start 07/16/16 at 08:45; Stop 08/09/16 at 17:35 ; Status DC Hydromorphone HCl (Dilaudid) 4 mg PRN Q4HRS PRN IV SEVERE PAIN Last administered on 07/30/16 09:23; Start 07/16/16 at 08:45; Stop 07/31/16 at 15:01 ; Status DC Pantoprazole Sodium (Protonix) 40 mg DAILYAC PO Last administered on 07/27/16 11:11; Start 07/16/16 at 09:30; Stop 07/29/16 at 08:44; Status DC Hyoscyamine (Anaspaz) 0.125 mg Q6HRS PO Last administered on 07/20/16 05:20; Start 07/16/16 at 12:00; Stop 07/20/16 at 08:58; Status DC Phenazopyridine HCl (Pyridium) 200 mg TID PO Last administered on 07/20/16 08: 25; Start 07/16/16 at 09:30; Stop 07/20/16 at 08:58; Status DC Lorazepam (Ativan) 0.5 mg PRN BID PRN PO ANXIETY / AGITATION Last administered on 07/29/16 02:16; Start 07/16/16 at 08:45; Stop 07/31/16 at 15:01; Status DC Simethicone (Gas-X) 80 mg PRN Q4HRS PRN PO GAS / BLOATING Last administered on 07/24/16 22:30; Start 07/16/16 at 08:45; Stop 07/31/16 at 15:01; Status DC Zolpidem Tartrate 5 mg 5 mg PRN QHS PRN PO INSOMNIA Last administered on 23:14; Start 07/16/16 at 08:45; Stop 07/31/16 at 15:01; Status DC Potassium Chloride/Dextrose/ Sod Cl 1,000 ml @ 80 mls/hr [id number] IV Last administered on 07/16/16 10:54; Start 07/16/16 at 09:30; Stop 07/16/16 at 21:59; Status DC Fluconazole/ Sodium Chloride (Diflucan 200mg/ 100ml Premix) 100 ml @ 100 mls/ hr Q24H IV Last administered on 07/18/16 11:43; Start 07/16/16 at 11:00; Stop at 13:28; Status DC Info 1 each 1 each PRN DAILY PRN MC SEE COMMENTS Last administered on 12:41; Start 07/16/16 at 10:00; Stop 08/01/16 at 11:24; Status DC Sodium Chloride 220 meq/Sodium Acetate 90 meq/ Potassium Chloride 50 meq/ Potassium Acetate 15 meq/Potassium Phosphate 10 mmol/ Magnesium Sulfate 50 meq/ Calcium Gluconate 6 meq/ Multivitamins/ Minerals 10 ml/ Chromium/Copper/ Manganese/Seleni/ Zn 1 ml/Total Parenteral Nutrition/Amino Acids/Dextro... 1, 920 ml @ 80 mls/hr TPN CONT IV ; Start 07/16/16 at 22:00; Stop 07/16/16 at 22:00 ; Status DC Sodium Chloride/ Sodium Acetate/ Potassium Chloride/ Potassium Acetate/ Potassium Phosphate/ Magnesium Sulfate/ Calcium Gluconate/ Multivitamins/ Minerals/Chromium/ Copper/Manganese/ Seleni/Zn/Total Parenteral Nutrition/Amino Acids/Dextrose/ Fat Emulsion Intravenous (Sodium Chlori... 1,820 ml @ 75.833 mls/ hr TPN CONT IV Last administered on 07/16/16 21:03; Start 07/16/16 at 22: 00; Stop 07/17/16 at 21:59; Status DC Ondansetron HCl (Zofran) 4 mg PRN Q6HRS PRN IV NAUSEA/VOMITING Last administered on 07/21/16 08:48; Start 07/16/16 at 17:15; Stop 07/31/16 at 15:01; Status DC Diphenhydramine HCl (Benadryl) 25 mg PRN Q6HRS PRN PO ITCHING Last administered on 07/25/16 23:38; Start 07/16/16 at 17:45; Stop 07/31/16 at 15:01 ; Status DC Lidocaine (Xylocaine) 1 sang BID TP Last administered on 08/10/16 08:14; Start 07/17/16 at 09:00 Zinc Oxide 1 sang 1 sang BID TP Last administered on 08/10/16 08:13; Start at 09:30 Sodium Chloride/ Sodium Acetate/ Potassium Chloride/ Potassium Acetate/ Potassium Phosphate/ Magnesium Sulfate/ Calcium Gluconate/ Multivitamins/ Minerals/Chromium/ Copper/Manganese/ Seleni/Zn/Total Parenteral Nutrition/Amino Acids/Dextrose/ Fat Emulsion Intravenous (Sodium Chlori... 1,920 ml @ 80 mls/ hr TPN CONT IV Last administered on 07/17/16 22:13; Start 07/17/16 at 22:00; Stop 07/18/16 at 21:59; Status DC Furosemide 40 mg 40 mg 1X ONCE IVP Last administered on 07/18/16 11:43; Start 07/18/16 at 11:00; Stop 07/18/16 at 11:07; Status DC Sodium Chloride 220 meq/Sodium Acetate 90 meq/ Potassium Chloride 50 meq/ Potassium Acetate 15 meq/Potassium Phosphate 10 mmol/ Magnesium Sulfate 50 meq/ Calcium Gluconate 3 meq/ Multivitamins/ Minerals 10 ml/ Chromium/Copper/ Manganese/Seleni/ Zn 1 ml/Total Parenteral Nutrition/Amino Acids/Dextro... 1, 920 ml @ 80 mls/hr TPN CONT IV Last administered on 07/19/16 00:03; Start 07/18/16 at 22:00; Stop 07/19/16 at 21:59; Status DC Meropenem 1 gm/ Sodium Chloride 100 ml @ 200 mls/hr Q8HRS IV Last administered on 07/20/16 05:21; Start 07/18/16 at 14:00; Stop 07/20/16 at 11:25; Status DC Micafungin Sodium 100 mg/Dextrose 100 ml @ 100 mls/hr Q24H IV Last administered on 07/19/16 15:05; Start 07/18/16 at 14:00; Stop 07/20/16 at 11:25; Status DC Daptomycin/Sodium Chloride (Cubicin/Iv Sodium Chloride 0.9% 50ml) 50 ml @ 100 mls/hr Q24H IV Last administered on 07/19/16 16:56; Start 07/18/16 at 15:00; Stop 07/20/16 at 11:25; Status DC Alteplase, Recombinant (Cathflo) 2 mg 1X ONCE INT CAT Last administered on 07/19 06:24; Start 07/19/16 at 07:00; Stop 07/19/16 at 07:01; Status DC Gentamicin Sulfate 1 each 1 each PRN DAILY PRN MC SEE COMMENTS Last administered on 07/25/16 15:31; Start 07/19/16 at 12:15; Stop 07/25/16 at 16:14 ; Status DC Gentamicin Sulfate/Sodium Chloride (Iv Sodium Chloride 0.9% 100ml) 106.75 ml @ 106.75 mls/hr Q24H IV Last administered on 07/25/16 15:31; Start 07/19/16 at 13 :00; Stop 07/25/16 at 16:12; Status DC Gentamicin Sulfate 1 each 1 each 1X ONCE MC Last administered on 07/19/16 23: 00; Start 07/19/16 at 23:00; Stop 07/19/16 at 23:01; Status DC Sodium Chloride/ Sodium Acetate/ Potassium Chloride/ Potassium Acetate/ Potassium Phosphate/ Magnesium Sulfate/ Calcium Gluconate/ Multivitamins/ Minerals/Chromium/ Copper/Manganese/ Seleni/Zn/Total Parenteral Nutrition/Amino Acids/Dextrose/ Fat Emulsion Intravenous (Sodium Chlori... 1,920 ml @ 80 mls/ hr TPN CONT IV Last administered on 07/19/16 20:51; Start 07/19/16 at 22:00; Stop 07/20/16 at 21:59; Status DC Hyoscyamine (Anaspaz) 0.125 mg PRN Q6HRS PRN PO BLADDER SPASM; Start 07/20/16 at 09:00; Stop 07/31/16 at 15:01; Status DC Phenazopyridine HCl 200 mg 200 mg PRN TID PRN PO BLADDER SPASM Last administered on 07/21/16 20:14; Start 07/20/16 at 09:00; Stop 07/31/16 at 15:01; Status DC Linezolid 300 ml @ 300 mls/hr Q12HR IV Last administered on 07/25/16 09:02; Start 07/20/16 at 12:00; Stop 07/25/16 at 16:12; Status DC Sodium Chloride 220 meq/Sodium Acetate 90 meq/ Potassium Chloride 50 meq/ Potassium Acetate 15 meq/Potassium Phosphate 10 mmol/ Magnesium Sulfate 50 meq/ Calcium Gluconate 3 meq/ Multivitamins/ Minerals 10 ml/ Chromium/Copper/ Manganese/Seleni/ Zn 1 ml/Total Parenteral Nutrition/Amino Acids/Dextro... 1, 920 ml @ 80 mls/hr TPN CONT IV Last administered on 07/20/16 21:30; Start 07/20/16 at 22:00; Stop 07/21/16 at 21:59; Status DC Sodium Chloride/ Sodium Acetate/ Potassium Chloride/ Potassium Acetate/ Potassium Phosphate/ Magnesium Sulfate/ Multivitamins/ Minerals/Chromium/ Copper /Manganese/ Seleni/Zn/Total Parenteral Nutrition/Amino Acids/Dextrose/ Fat Emulsion Intravenous (Sodium Chloride/ Potass... 1,920 ml @ 80 mls/hr TPN CONT IV Last administered on 07/21/16 22:05; Start 07/21/16 at 22:00; Stop at 21:59; Status DC Alteplase, Recombinant 2 mg 2 mg PRN DAILY PRN INT CAT INFLAMMATION Last administered on 07/27/16 11:31; Start 07/21/16 at 15:00 Sodium Chloride 220 meq/Sodium Acetate 90 meq/ Potassium Chloride 50 meq/ Potassium Acetate 15 meq/Potassium Phosphate 10 mmol/ Magnesium Sulfate 50 meq/ Multivitamins/ Minerals 10 ml/ Chromium/Copper/ Manganese/Seleni/ Zn 1 ml/Total Parenteral Nutrition/Amino Acids/Dextrose/ Fat Emuls... 1,920 ml @ 80 mls/hr TPN CONT IV Last administered on 07/22/16 20:53; Start 07/22/16 at 22:00; Stop 07/23/16 at 21:59; Status DC Sodium Chloride/ Sodium Acetate/ Potassium Chloride/ Potassium Acetate/ Potassium Phosphate/ Magnesium Sulfate/ Multivitamins/ Minerals/Chromium/ Copper /Manganese/ Seleni/Zn/Total Parenteral Nutrition/Amino Acids/Dextrose/ Fat Emulsion Intravenous (Sodium Chloride/ Potass... 1,920 ml @ 80 mls/hr TPN CONT IV Last administered on 07/23/16 21:16; Start 07/23/16 at 22:00; Stop 07/24 at 21:59; Status DC Gentamicin Sulfate 1 each 1 each 1X ONCE MC ; Start 07/23/16 at 22:00; Stop 07/23 at 22:01; Status Cancel Sodium Chloride/ Sodium Acetate/ Potassium Chloride/ Potassium Acetate/ Potassium Phosphate/ Magnesium Sulfate/ Multivitamins/ Minerals/Chromium/ Copper /Manganese/ Seleni/Zn/Total Parenteral Nutrition/Amino Acids/Dextrose/ Fat Emulsion Intravenous (Sodium Chloride/ Potass... 1,920 ml @ 80 mls/hr TPN CONT IV Last administered on 07/24/16 21:15; Start 07/24/16 at 22:00; Stop 04/30 at 21:59; Status DC Gentamicin Sulfate 1 each 1X ONCE MC ; Start 07/25/16 at 12:30; Stop 07/25/16 at 12:31; Status Cancel Amlodipine Besylate 5 mg 5 mg DAILY PO Last administered on 07/27/16 11:12; Start 07/25/16 at 12:00; Stop 07/29/16 at 08:44; Status DC Sodium Chloride 220 meq/Sodium Acetate 90 meq/ Potassium Chloride 30 meq/ Potassium Acetate 15 meq/Potassium Phosphate 10 mmol/ Magnesium Sulfate 50 meq/ Multivitamins/ Minerals 10 ml/ Chromium/Copper/ Manganese/Seleni/ Zn 1 ml/Total Parenteral Nutrition/Amino Acids/Dextrose/ Fat Emuls... 1,920 ml @ 80 mls/hr TPN CONT IV Last administered on 07/25/16 22:25; Start 07/25/16 at 22:00; Stop 07/26/16 at 21:59; Status DC Sodium Chloride/ Sodium Acetate/ Potassium Chloride/ Potassium Acetate/ Potassium Phosphate/ Magnesium Sulfate/ Multivitamins/ Minerals/Chromium/ Copper /Manganese/ Seleni/Zn/Total Parenteral Nutrition/Amino Acids/Dextrose/ Fat Emulsion Intravenous (Sodium Chloride/ Potass... 1,920 ml @ 80 mls/hr TPN CONT IV Last administered on 07/26/16 23:16; Start 07/26/16 at 22:00; Stop at 21:59; Status DC Furosemide 20 mg 20 mg 1X ONCE IVP Last administered on 07/27/16 11:31; Start 07/27/16 at 09:00; Stop 07/27/16 at 09:01; Status DC Daptomycin 340 mg/ Sodium Chloride 50 ml @ 100 mls/hr Q24H IV Last administered on 07/29/16 15:05; Start 07/27/16 at 13:00; Stop 07/30/16 at 07:25 ; Status DC Piperacillin Sod/ Tazobactam Sod 3.375 gm/Sodium Chloride 50 ml @ 100 mls/hr Q6HRS IV Last administered on 07/30/16 05:30; Start 07/27/16 at 12:30; Stop at 07:25; Status DC Fluconazole/ Sodium Chloride 100 ml @ 100 mls/hr Q24H IV Last administered on 07/28/16 13:32; Start 07/27/16 at 13:00; Stop 07/29/16 at 00:53; Status DC Sodium Chloride 1,000 ml @ 1,000 mls/hr 1X ONCE IV Last administered on 12:34; Start 07/27/16 at 12:30; Stop 07/27/16 at 13:29; Status DC Sodium Chloride 220 meq/Sodium Acetate 90 meq/ Potassium Chloride 30 meq/ Potassium Acetate 15 meq/Potassium Phosphate 10 mmol/ Magnesium Sulfate 45 meq/ Multivitamins/ Minerals 10 ml/ Chromium/Copper/ Manganese/Seleni/ Zn 1 ml/Total Parenteral Nutrition/Amino Acids/Dextrose/ Fat Emuls... 1,920 ml @ 80 mls/hr TPN CONT IV Last administered on 07/27/16 22:38; Start 07/27/16 at 22:00; Stop 07/28/16 at 21:59; Status DC Sodium Chloride (Iv Sodium Chloride 0.9% 1000ml Bag) 1,000 ml @ 45 mls/hr [id number] IV Last administered on 07/28/16 03:24; Start 07/27/16 at 17:00; Stop 07/28/16 at 10:27; Status DC Acetaminophen 650 mg 650 mg PRN Q6HRS PRN [place] fever Last administered on 03:57; Start 07/27/16 at 16:30; Stop 07/29/16 at 08:33; Status DC Sodium Chloride 1,000 ml @ 427.5 mls/ hr Q2H21M IV Last administered on 19:30; Start 07/27/16 at 19:30; Stop 07/27/16 at 23:30; Status DC Sodium Chloride 220 meq/Sodium Acetate 90 meq/ Potassium Chloride 30 meq/ Potassium Acetate 15 meq/Potassium Phosphate 10 mmol/ Magnesium Sulfate 45 meq/ Multivitamins/ Minerals 10 ml/ Chromium/Copper/ Manganese/Seleni/ Zn 1 ml/Total Parenteral Nutrition/Amino Acids/Dextrose/ Fat Emuls... 1,920 ml @ 80 mls/hr TPN CONT IV Last administered on 07/28/16 21:43; Start 07/28/16 at 22:00; Stop 07/29/16 at 21:59; Status DC Micafungin Sodium/ Dextrose (Mycamine) 100 ml @ 100 mls/hr Q24H IV Last administered on 08/10/16 01:05; Start 07/29/16 at 01:00 Lorazepam (Ativan) 0.05 mg PRN Q4HRS PRN IV ANXIETY / AGITATION; Start at 02:30; Stop 07/29/16 at 02:48; Status DC Lorazepam (Ativan) 0.5 mg PRN Q4HRS PRN IV ANXIETY / AGITATION Last administered on 08/09/16 17:19; Start 07/29/16 at 03:00 Acetaminophen (Tylenol) 650 mg PRN Q4HRS PRN [place] MILD PAIN / TEMP; Start at 08:30 Ketorolac Tromethamine (Toradol) 30 mg PRN Q6HRS PRN IV PAIN/FEVER Last administered on 07/30/16 00:50; Start 07/29/16 at 08:30; Stop 07/30/16 at 13:01 ; Status DC Pantoprazole Sodium 40 mg 40 mg DAILYAC IVP Last administered on 08/10/16 08: 13; Start 07/29/16 at 09:00 Sodium Chloride 1,000 ml @ 45 mls/hr [id number] IV Last administered on 09:17; Start 07/29/16 at 08:45; Stop 07/31/16 at 15:01; Status DC Sodium Chloride/ Sodium Acetate/ Potassium Chloride/ Potassium Acetate/ Potassium Phosphate/ Magnesium Sulfate/ Multivitamins/ Minerals/Chromium/ Copper /Manganese/ Seleni/Zn/Total Parenteral Nutrition/Amino Acids/Dextrose/ Fat Emulsion Intravenous (Sodium Chloride/ Potass... 1,920 ml @ 80 mls/hr TPN CONT IV Last administered on 07/29/16 22:06; Start 07/29/16 at 22:00; Stop at 21:59; Status DC Lidocaine/Sodium Bicarbonate 20 ml 20 ml STK-MED ONCE IJ ; Start 07/29/16 at 13: 13; Stop 07/29/16 at 13:14; Status DC Heparin Sodium/ Sodium Chloride 500 ml @ As Directed STK-MED ONCE .ROUTE ; Start 07/29/16 at 13:13; Stop 07/29/16 at 13:14; Status DC Lidocaine/ Epinephrine (Xylocaine 1%-Epi 1:100,000) 20 ml STK-MED ONCE .ROUTE ; Start 07/29/16 at 13:22; Stop 07/29/16 at 13:23; Status DC Midazolam HCl (Versed) 5 mg STK-MED ONCE .ROUTE ; Start 07/29/16 at 13:32; Stop 07/29/16 at 13:33; Status DC Fentanyl Citrate (Fentanyl 5ml Vial) 250 mcg STK-MED ONCE .ROUTE ; Start at 13:32; Stop 07/29/16 at 13:33; Status DC Heparin Sodium/ Sodium Chloride 1,000 unit 1X ONCE IART Last administered on 13:45; Start 07/29/16 at 13:45; Stop 07/29/16 at 13:48; Status DC Midazolam HCl (Versed) 5 mg 1X ONCE IV Last administered on 07/29/16 13:45; Start 07/29/16 at 13:45; Stop 07/29/16 at 13:48; Status DC Fentanyl Citrate (Fentanyl 5ml Vial) 250 mcg 1X ONCE IV Last administered on 13:45; Start 07/29/16 at 13:45; Stop 07/29/16 at 13:48; Status DC Lidocaine/ Epinephrine 20 ml 20 ml 1X ONCE IJ Last administered on 07/29/16 13:45; Start 07/29/16 at 13:45; Stop 07/29/16 at 13:48; Status DC Sodium Chloride 220 meq/Sodium Acetate 90 meq/ Potassium Chloride 15 meq/ Potassium Acetate 30 meq/Potassium Phosphate 10 mmol/ Magnesium Sulfate 45 meq/ Multivitamins/ Minerals 10 ml/ Chromium/Copper/ Manganese/Seleni/ Zn 1 ml/Total Parenteral Nutrition/Amino Acids/Dextrose/ Fat Emuls... 1,920 ml @ 80 mls/hr TPN CONT IV ; Start 07/30/16 at 22:00; Stop 07/31/16 at 21:59; Status DC Norepinephrine Bitartrate 8 mg/ Sodium Chloride 258 ml @ 1.93 mls/hr 1X ONCE IV Last administered on 07/30/16 11:17; Start 07/30/16 at 11:15; Stop at 15:43; Status DC Norepinephrine Bitartrate/Sodium Chloride (Levophed Vial/ Iv Sodium Chloride 0.9 % 250ml) 258 ml @ 0 mls/hr CONT PRN IV SEE I/O RECORD Last administered on 08/02 19:54; Start 07/30/16 at 11:15; Stop 08/04/16 at 09:29; Status DC Furosemide 60 mg 60 mg 1X ONCE IVP Last administered on 07/30/16 11:14; Start 07/30/16 at 11:15; Stop 07/30/16 at 11:16; Status DC Sodium Chloride 500 ml @ 500 mls/hr Q1H IV Last administered on 07/30/16 17: 04; Start 07/30/16 at 14:30; Stop 07/30/16 at 15:29; Status DC Albumin Human 100 ml @ 100 mls/hr Q8HRS IV Last administered on 07/31/16 05: 37; Start 07/30/16 at 14:30; Stop 07/31/16 at 06:59; Status DC Furosemide/Sodium Chloride (Lasix Drip/Iv Sodium Chloride 0.9% 100ml) 100 ml @ 0 mls/hr CONT PRN IV SEE I/O RECORD Last administered on 07/31/16 03:17; Start 07/30/16 at 14:30; Stop 08/01/16 at 13:19; Status DC Ondansetron HCl (Zofran) 8 mg PRN Q8HRS PRN IV NAUSEA/VOMITING Last administered on 07/30/16 14:38; Start 07/30/16 at 14:30 Sodium Bicarbonate 50 meq 50 meq 1X ONCE IV Last administered on 07/30/16 14: 43; Start 07/30/16 at 14:30; Stop 07/30/16 at 14:31; Status DC Heparin Sodium/ Sodium Chloride 500 ml @ As Directed STK-MED ONCE .ROUTE ; Start 07/30/16 at 14:49; Stop 07/30/16 at 14:50; Status DC Lidocaine HCl 20 ml STK-MED ONCE .ROUTE ; Start 07/30/16 at 14:49; Stop at 14:50; Status DC Midazolam HCl (Versed) 2 mg STK-MED ONCE .ROUTE ; Start 07/30/16 at 15:19; Stop 07/30/16 at 15:20; Status DC Heparin Sodium/ Sodium Chloride 1,000 unit 1X ONCE IART Last administered on 15:44; Start 07/30/16 at 15:45; Stop 07/30/16 at 15:46; Status DC Midazolam HCl (Versed) 1.5 mg 1X ONCE IV Last administered on 07/30/16 15:44 ; Start 07/30/16 at 15:45; Stop 07/30/16 at 15:46; Status DC Lidocaine HCl 20 ml 1X ONCE IJ Last administered on 07/30/16 15:44; Start at 15:45; Stop 07/30/16 at 15:46; Status DC Heparin Sodium (Porcine) 01604 unit 10,000 unit STK-MED ONCE .ROUTE ; Start at 15:54; Stop 07/30/16 at 15:55; Status DC Fentanyl Citrate 30 ml @ 0 mls/hr CONT PRN PRN IV PROTOCOL Last administered on 08/08/16 10:21; Start 07/30/16 at 16:45; Stop 08/08/16 at 11:03; Status DC Sodium Bicarbonate/ Dextrose 1,150 ml @ 125 mls/hr 1X ONCE IV Last administered on 07/30/16 18:34; Start 07/30/16 at 17:30; Stop 07/31/16 at 02:41 ; Status DC Succinylcholine Chloride 200 mg 200 mg STK-MED ONCE .ROUTE ; Start 07/30/16 at 19:47; Stop 07/30/16 at 19:48; Status DC Propofol 100 ml @ As Directed STK-MED ONCE IV ; Start 07/30/16 at 19:48; Stop 07/30/16 at 19:49; Status DC Midazolam HCl (Versed 100mg/ 100ml Premix) 100 ml @ 0 mls/hr CONT PRN IV SEE I/ O RECORD Last administered on 08/03/16 12:18; Start 07/30/16 at 21:15 Sodium Bicarbonate 50 meq 50 meq 1X ONCE IV Last administered on 07/30/16 22: 15; Start 07/30/16 at 22:30; Stop 07/30/16 at 22:31; Status DC Dopamine HCl/ Dextrose 250 ml @ 11.513 mls/ hr CONT PRN IV SEE I/O RECORD Last administered on 07/31/16 20:16; Start 07/30/16 at 22:15; Stop 08/04/16 at 09:29; Status DC Sodium Bicarbonate/ Dextrose 1,150 ml @ 125 mls/hr Q9H12M IV Last administered on 08/01/16 09:30; Start 07/31/16 at 03:00; Stop 08/01/16 at 13:19 ; Status DC Propofol (Diprivan) 1,000 mg STK-MED ONCE IV ; Start 07/30/16 at 20:00; Stop at 08:16; Status DC Succinylcholine Chloride 200 mg 200 mg STK-MED ONCE .ROUTE ; Start 07/30/16 at 20:00; Stop 07/31/16 at 08:16; Status DC Tigecycline 50 mg/ Sodium Chloride 50 ml @ 100 mls/hr Q12HR IV Last administered on 08/04/16 09:01; Start 07/31/16 at 21:00; Stop 08/04/16 at 10:00 ; Status DC Tigecycline/ Sodium Chloride (Tygacil/Iv Sodium Chloride 0.9% 100ml) 100 ml @ 200 mls/hr 1X ONCE IV Last administered on 07/31/16 09:22; Start 07/31/16 at 09:00; Stop 07/31/16 at 09:29; Status DC Darbepoetin Sarbjit 60 mcg 60 mcg WEEKLYHS SQ Last administered on 08/07/16 21:41 ; Start 07/31/16 at 21:00 Albumin Human 100 ml @ 100 mls/hr 1X ONCE IV Last administered on 07/31/16 11:40; Start 07/31/16 at 11:15; Stop 07/31/16 at 12:14; Status DC Albumin Human 100 ml @ 100 mls/hr 1X ONCE IV Last administered on 07/31/16 12:03; Start 07/31/16 at 11:15; Stop 07/31/16 at 12:14; Status DC Sodium Chloride (Iv Sodium Chloride 0.9% 1000ml Bag) 1,000 ml @ 1,000 mls/hr Q1H PRN IV hypotension; Start 07/31/16 at 11:33; Stop 07/31/16 at 17:32; Status DC Info (PHARMACY MONITORING -- do not chart) 1 each PRN DAILY PRN MC SEE COMMENTS ; Start 07/31/16 at 11:45 Info (PHARMACY MONITORING -- do not chart) 1 each PRN DAILY PRN MC SEE COMMENTS ; Start 07/31/16 at 11:45; Status UNV Hydrocortisone Sodium Succinate (Solu-Cortef) 100 mg Q8HRS IV Last administered on 08/04/16 06:16; Start 08/01/16 at 07:00; Stop 08/04/16 at 09:29 ; Status DC Albuterol/ Ipratropium (Duoneb) 3 ml RTQID NEB Last administered on 08/10/16 08:30; Start 08/01/16 at 08:00 Albuterol/ Ipratropium 3 ml 3 ml STK-MED ONCE .ROUTE Last administered on 07:34; Start 08/01/16 at 06:59; Stop 08/01/16 at 07:00; Status DC Sodium Chloride 1,000 ml @ 1,000 mls/hr Q1H PRN IV hypotension; Start 08/01/16 at 06:57; Stop 08/01/16 at 12:56; Status DC Albumin Human (Albuminar) 200 ml @ 200 mls/hr 1X PRN PRN IV Hypotension; Start 08/01/16 at 07:00; Stop 08/01/16 at 12:59; Status DC Info (PHARMACY MONITORING -- do not chart) 1 each PRN DAILY PRN MC SEE COMMENTS ; Start 08/01/16 at 07:00; Status UNV Info 1 each 1 each PRN DAILY PRN MC SEE COMMENTS Last administered on 14:12; Start 08/01/16 at 13:30 Sodium Chloride 220 meq/Sodium Acetate 90 meq/ Potassium Chloride 15 meq/ Potassium Acetate 30 meq/Potassium Phosphate 10 mmol/ Magnesium Sulfate 45 meq/ Multivitamins/ Minerals 10 ml/ Chromium/Copper/ Manganese/Seleni/ Zn 1 ml/Total Parenteral Nutrition/Amino Acids/Dextrose/ Fat Emuls... 1,920 ml @ 80 mls/hr TPN CONT IV Last administered on 08/01/16 21:56; Start 08/01/16 at 22:00; Stop 08/02/16 at 21:59; Status DC Potassium Chloride (KCl Premix 20meq) 50 ml @ 50 mls/hr Q1H IV Last administered on 08/01/16 19:05; Start 08/01/16 at 17:00; Stop 08/01/16 at 18:59 ; Status DC Insulin Aspart 0-6 UNITS TIDWMEALS SQ Last administered on 08/02/16 11:33; Start 08/02/16 at 12:00; Stop 08/02/16 at 14:34; Status DC Sodium Chloride 220 meq/Sodium Acetate 90 meq/ Potassium Chloride 15 meq/ Potassium Acetate 30 meq/Magnesium Sulfate 45 meq/ Multivitamins/ Minerals 10 ml / Chromium/Copper/ Manganese/Seleni/ Zn 1 ml/Total Parenteral Nutrition/Amino Acids/Dextrose/ Fat Emulsion Intravenous 1,920 ml @ 80 mls/hr TPN CONT IV Last administered on 08/02/16 21:34; Start 08/02/16 at 22:00; Stop 08/03/16 at 21:59; Status DC Levofloxacin/ Dextrose 150 ml @ 100 mls/hr 1X ONCE IV Last administered on 14:35; Start 08/02/16 at 14:00; Stop 08/02/16 at 15:29; Status DC Daptomycin/Sodium Chloride (Cubicin/Iv Sodium Chloride 0.9% 50ml) 50 ml @ 100 mls/hr ONCE ONCE IV Last administered on 08/02/16 14:34; Start 08/02/16 at 15 :00; Stop 08/02/16 at 15:29; Status DC Insulin Aspart 0-6 UNITS Q6HRS SQ Last administered on 08/09/16 16:59; Start 08/02/16 at 18:00 Sodium Chloride (Iv Sodium Chloride 0.9% 1000ml Bag) 1,000 ml @ 1,000 mls/hr Q1H PRN IV hypotension; Start 08/03/16 at 07:26; Stop 08/03/16 at 13:25; Status DC Diphenhydramine HCl (Benadryl) 25 mg 1X PRN PRN IV ITCHING; Start 08/03/16 at 07:30; Stop 08/04/16 at 07:29; Status DC Diphenhydramine HCl (Benadryl) 25 mg 1X PRN PRN IV ITCHING; Start 08/03/16 at 07:30; Stop 08/04/16 at 07:29; Status DC Sodium Chloride (Normal Saline Flush) 10 ml 1X PRN PRN IV AP catheter pack; Start 08/03/16 at 07:30; Stop 08/04/16 at 07:29; Status DC Sodium Chloride 10 ml 10 ml 1X PRN PRN IV FIRE [employer]IPMENT REPAIRER INSPECTOR catheter pack; Start 08/03/16 at 07:30; Stop 08/04/16 at 07:29; Status DC Sodium Chloride (Iv Sodium Chloride 0.9% 1000ml Bag) 1,000 ml @ 400 mls/hr Q2H30M PRN IV PATENCY; Start 08/03/16 at 07:26; Stop 08/03/16 at 19:25; Status DC Info 1 each 1 each PRN DAILY PRN MC SEE COMMENTS; Start 08/03/16 at 07:30; Status UNV Albumin Human 200 ml @ 200 mls/hr Q2HR IV Last administered on 08/03/16 10:00 ; Start 08/03/16 at 08:44; Stop 08/03/16 at 10:59; Status DC Sodium Chloride 160 meq/Sodium Acetate 60 meq/ Potassium Chloride 15 meq/ Potassium Acetate 30 meq/Magnesium Sulfate 25 meq/ Multivitamins/ Minerals 10 ml / Chromium/Copper/ Manganese/Seleni/ Zn 1 ml/Total Parenteral Nutrition/Amino Acids/Dextrose/ Fat Emulsion Intravenous 1,500 ml @ 62.5 mls/hr TPN CONT IV Last administered on 08/03/16 22:52; Start 08/03/16 at 22:00; Stop 08/04/16 at 21:59; Status DC Levofloxacin/ Dextrose 100 ml @ 100 mls/hr 1X ONCE IV Last administered on 10:50; Start 08/04/16 at 07:30; Stop 08/04/16 at 08:30; Status DC Daptomycin 450 mg/ Sodium Chloride 50 ml @ 100 mls/hr ONCE ONCE IV Last administered on 08/04/16 09:55; Start 08/04/16 at 08:00; Stop 08/04/16 at 08:30 ; Status DC Tigecycline/ Sodium Chloride (Tygacil/Iv Sodium Chloride 0.9% 50ml) 50 ml @ 100 mls/hr Q12HR IV Last administered on 08/09/16 07:20; Start 08/04/16 at 21: 00; Stop 08/09/16 at 09:42; Status DC Hydrocortisone Sodium Succinate 50 mg 50 mg Q8HRS IV Last administered on 05:39; Start 08/04/16 at 14:00; Stop 08/05/16 at 11:12; Status DC Furosemide 100 mg/ Sodium Chloride 100 ml @ 0 mls/hr CONT PRN IV SEE I/O RECORD Last administered on 08/09/16 06:43; Start 08/04/16 at 11:30; Stop 08/09 at 11:31; Status DC Sodium Chloride 160 meq/Sodium Acetate 60 meq/ Potassium Chloride 15 meq/ Potassium Acetate 30 meq/Magnesium Sulfate 25 meq/ Multivitamins/ Minerals 10 ml / Chromium/Copper/ Manganese/Seleni/ Zn 1 ml/Total Parenteral Nutrition/Amino Acids/Dextrose/ Fat Emulsion Intravenous 1,500 ml @ 62.5 mls/hr TPN CONT IV Last administered on 08/04/16 21:45; Start 08/04/16 at 22:00; Stop 08/06/16 at 08:48; Status DC Sodium Chloride 1,000 ml @ 1,000 mls/hr Q1H PRN IV hypotension; Start 08/04/16 at 12:00; Stop 08/04/16 at 17:59; Status DC Sodium Chloride (Iv Sodium Chloride 0.9% 1000ml Bag) 1,000 ml @ 400 mls/hr Q2H30M PRN IV PATENCY; Start 08/04/16 at 12:00; Stop 08/04/16 at 23:59; Status DC Info 1 each 1 each PRN DAILY PRN MC SEE COMMENTS; Start 08/04/16 at 16:30; Status UNV Levofloxacin/ Dextrose 100 ml @ 100 mls/hr 1X ONCE IV Last administered on 14:27; Start 08/05/16 at 14:00; Stop 08/05/16 at 14:59; Status DC Daptomycin/Sodium Chloride (Cubicin/Iv Sodium Chloride 0.9% 50ml) 50 ml @ 100 mls/hr 1X ONCE IV Last administered on 08/05/16 14:27; Start 08/05/16 at 14: 00; Stop 08/05/16 at 14:29; Status DC Heparin Sodium (Porcine) 10,000 unit STK-MED ONCE .ROUTE ; Start 08/05/16 at 09: 35; Stop 08/05/16 at 09:36; Status DC Lidocaine/Sodium Bicarbonate 20 ml 20 ml STK-MED ONCE IJ ; Start 08/05/16 at 09: 36; Stop 08/05/16 at 09:37; Status DC Heparin Sodium/ Sodium Chloride 500 ml @ As Directed STK-MED ONCE .ROUTE ; Start 08/05/16 at 09:36; Stop 08/05/16 at 09:37; Status DC Lidocaine/Sodium Bicarbonate (Buffered Lidocaine 1%) 2 ml 1X ONCE IJ Last administered on 08/05/16 10:04; Start 08/05/16 at 10:00; Stop 08/05/16 at 10:02 ; Status DC Heparin Sodium/ Sodium Chloride 60 unit 1X ONCE IV Last administered on 10:04; Start 08/05/16 at 10:00; Stop 08/05/16 at 10:02; Status DC Heparin Sodium (Porcine) 2,800 unit 1X ONCE INT CAT Last administered on 10:04; Start 08/05/16 at 10:00; Stop 08/05/16 at 10:02; Status DC Info (PHARMACY MONITORING -- do not chart) 1 each PRN DAILY PRN MC SEE COMMENTS ; Start 08/05/16 at 10:30; Stop 08/05/16 at 10:30; Status DC Info (PHARMACY MONITORING -- do not chart) 1 each PRN DAILY PRN MC SEE COMMENTS ; Start 08/05/16 at 10:30; Stop 08/05/16 at 10:30; Status DC Hydrocortisone Sodium Succinate 50 mg 50 mg BID IV Last administered on 07:49; Start 08/05/16 at 21:00; Stop 08/07/16 at 10:23; Status DC Sodium Chloride 160 meq/Sodium Acetate 60 meq/ Potassium Chloride 15 meq/ Potassium Acetate 30 meq/Magnesium Sulfate 25 meq/ Multivitamins/ Minerals 10 ml / Chromium/Copper/ Manganese/Seleni/ Zn 1 ml/Total Parenteral Nutrition/Amino Acids/Dextrose/ Fat Emulsion Intravenous 1,500 ml @ 62.5 mls/hr TPN CONT IV Last administered on 08/05/16 22:04; Start 08/05/16 at 22:00; Stop 08/06/16 at 21:59; Status DC Daptomycin 500 mg/ Sodium Chloride 50 ml @ 100 mls/hr Q24H IV Last administered on 08/09/16 13:44; Start 08/06/16 at 14:00 Sodium Chloride (Iv Sodium Chloride 0.9% 1000ml Bag) 1,000 ml @ 1,000 mls/hr Q1H PRN IV hypotension; Start 08/06/16 at 08:21; Stop 08/06/16 at 14:20; Status DC Diphenhydramine HCl (Benadryl) 25 mg 1X PRN PRN IV ITCHING; Start 08/06/16 at 08:30; Stop 08/07/16 at 08:29; Status DC Diphenhydramine HCl (Benadryl) 25 mg 1X PRN PRN IV ITCHING; Start 08/06/16 at 08:30; Stop 08/07/16 at 08:29; Status DC Sodium Chloride (Normal Saline Flush) 10 ml 1X PRN PRN IV AP catheter pack; Start 08/06/16 at 08:30; Stop 08/07/16 at 08:29; Status DC Sodium Chloride 10 ml 10 ml 1X PRN PRN IV FI[employer]IPMENT REPAIRER INSPECTOR catheter pack; Start 08/06/16 at 08:30; Stop 08/07/16 at 08:29; Status DC Sodium Chloride (Iv Sodium Chloride 0.9% 1000ml Bag) 1,000 ml @ 400 mls/hr Q2H30M PRN IV PATENCY; Start 08/06/16 at 08:21; Stop 08/06/16 at 20:20; Status DC Info 1 each 1 each PRN DAILY PRN MC SEE COMMENTS; Start 08/06/16 at 08:30; Status UNV Albumin Human 200 ml @ 200 mls/hr 1X STAT IV Last administered on 08/06/16 10:09; Start 08/06/16 at 09:52; Stop 08/06/16 at 10:51; Status DC Sodium Chloride/ Sodium Acetate/ Potassium Chloride/ Potassium Acetate/ Magnesium Sulfate/ Multivitamins/ Minerals/Chromium/ Copper/Manganese/ Seleni/Zn /Total Parenteral Nutrition/Amino Acids/Dextrose/ Fat Emulsion Intravenous ( Sodium Chloride/ Infuvite Adult/ Multitrace-5 Conc/ Tpn - Tpn Flu... 1,500 ml @ 62.5 mls/hr TPN CONT IV Last administered on 08/06/16 21:57; Start at 22:00; Stop 08/07/16 at 21:59; Status DC Darbepoetin Sarbjit 60 mcg 60 mcg [id number] SQ ; Start 08/07/16 at 21:00; Status UNV Potassium Chloride (KCl Premix 20meq) 50 ml @ 50 mls/hr Q1H IV Last administered on 08/07/16 10:46; Start 08/07/16 at 08:00; Stop 08/07/16 at 09:59 ; Status DC Hydrocortisone Sodium Succinate 25 mg 25 mg BID IV ; Start 08/07/16 at 21:00; Stop 08/07/16 at 21:00; Status DC Sodium Chloride (Iv Sodium Chloride 0.9% 1000ml Bag) 1,000 ml @ 1,000 mls/hr Q1H PRN IV hypotension; Start 08/07/16 at 12:08; Stop 08/07/16 at 18:07; Status DC Diphenhydramine HCl (Benadryl) 25 mg 1X PRN PRN IV ITCHING; Start 08/07/16 at 12:15; Stop 08/08/16 at 12:14; Status DC Diphenhydramine HCl (Benadryl) 25 mg 1X PRN PRN IV ITCHING; Start 08/07/16 at 12:15; Stop 08/08/16 at 12:14; Status DC Sodium Chloride (Normal Saline Flush) 10 ml 1X PRN PRN IV AP catheter pack; Start 08/07/16 at 12:15; Stop 08/08/16 at 12:14; Status DC Sodium Chloride (Normal Saline Flush) 10 ml 1X PRN PRN IV FIRE [employer]IPMENT REPAIRER INSPECTOR catheter pack; Start 08/07/16 at 12:15; Stop 08/08/16 at 12:14; Status DC Info (PHARMACY MONITORING -- do not chart) 1 each PRN DAILY PRN MC SEE COMMENTS ; Start 08/07/16 at 12:15; Status UNV Info 1 each 1 each PRN DAILY PRN MC SEE COMMENTS; Start 08/07/16 at 12:15; Status UNV Sodium Chloride 160 meq/Sodium Acetate 60 meq/ Potassium Chloride 55 meq/ Potassium Acetate 30 meq/Magnesium Sulfate 25 meq/ Multivitamins/ Minerals 10 ml / Chromium/Copper/ Manganese/Seleni/ Zn 1 ml/Total Parenteral Nutrition/Amino Acids/Dextrose/ Fat Emulsion Intravenous 1,500 ml @ 62.5 mls/hr TPN CONT IV Last administered on 08/07/16 21:41; Start 08/07/16 at 22:00; Stop 08/08/16 at 21:59; Status DC Potassium Chloride (KCl Premix 20meq) 50 ml @ 50 mls/hr 1X ONCE IV Last administered on 08/08/16 09:04; Start 08/08/16 at 10:00; Stop 08/08/16 at 10:59 ; Status DC Fentanyl Citrate 25 mcg 25 mcg PRN Q4HRS PRN IV PAIN Last administered on 15:04; Start 08/08/16 at 11:00 Potassium Chloride 50 ml @ 50 mls/hr 1X ONCE IV Last administered on 15:33; Start 08/08/16 at 11:15; Stop 08/08/16 at 12:14; Status DC Sodium Chloride 140 meq/Sodium Acetate 60 meq/ Potassium Chloride 70 meq/ Potassium Acetate 30 meq/Magnesium Sulfate 25 meq/ Multivitamins/ Minerals 10 ml / Chromium/Copper/ Manganese/Seleni/ Zn 1 ml/Total Parenteral Nutrition/Amino Acids/Dextrose/ Fat Emulsion Intravenous 1,500 ml @ 62.5 mls/hr TPN CONT IV Last administered on 08/08/16 21:42; Start 08/08/16 at 22:00; Stop 08/09/16 at 11:30; Status DC Tigecycline 50 mg/ Sodium Chloride 50 ml @ 100 mls/hr Q12HR IV ; Start at 09:42; Stop 08/09/16 at 10:03; Status DC Dextrose 1,000 ml @ 80 mls/hr [id number] IV ; Start 08/09/16 at 11:45; Stop at 11:57; Status DC Dextrose/Sodium Chloride 1,000 ml @ 50 mls/hr Q20H IV Last administered on 12:22; Start 08/09/16 at 12:00 Sodium Chloride/ Sodium Acetate/ Potassium Chloride/ Potassium Acetate/ Magnesium Sulfate/ Multivitamins/ Minerals/Chromium/ Copper/Manganese/ Seleni/Zn /Total Parenteral Nutrition/Amino Acids/Dextrose/ Fat Emulsion Intravenous ( Sodium Chloride/ Infuvite Adult/ Multitrace-5 Conc/ Tpn - Tpn Flu... 1,512 ml @ 63 mls/hr TPN CONT IV ; Start 08/09/16 at 22:00; Stop 08/10/16 at 21:59 Active Scripts Active Dilaudid (Hydromorphone Hcl) 4 Mg Tablet 4 Mg PO Q6HRS Phenazopyridine Hcl 200 Mg Tablet 200 Mg PO PRN TID PRN FENTANYL 50mcg/hr (Fentanyl) 1 Each Patch.td72 1 Patch TD Q3DAYS Anaspaz (Hyoscyamine Sulfate) 0.125 Mg Tab.rapdis 0.125 Mg PO Q6HRS PRN Cefpodoxime Proxetil 200 Mg Tablet 200 Mg PO BID Sertraline Hcl 50 Mg Tablet 100 Mg PO DAILY 30 Days Protonix (Pantoprazole Sodium) 40 Mg Tablet.dr 1 Tab PO DAILY Zinc Oxide 56.7 Gm Oint...g. 1 Sang TP BID Lidocaine 35.44 Gm Oint...g. 1 Sang TP BID Ondansetron Odt (Ondansetron) 4 Mg Tab.rapdis 8 Mg PO PRN Q8HRS PRN Gas-X (Simethicone) 80 Mg Tab.chew 80 Mg PO PRN QID PRN Reported Lorazepam 0.5 Mg Tablet 0.5 Mg PO PRN BID PRN Vitals/I & O Vital Sign - Last 24 Hours 08/09/16 08/09/16 08/09/16 08/09/16 10:00 11:00 11:38 12:00 Pulse 106 110 Resp 16 20 B/P 126/73 154/78 Pulse Ox 100 100 100 O2 Delivery Ventilator Ventilator Ventilator Mechanical Ventilator 08/09/16 08/09/16 08/09/16 08/09/16 12:00 13:00 14:00 15:00 Temp 97.8 97.8 97.8 97.8 Pulse 108 94 99 95 Resp 14 15 16 16 B/P 133/84 158/89 169/82 169/87 Pulse Ox 100 100 100 100 O2 Delivery Ventilator Ventilator Ventilator Ventilator 08/09/16 08/09/16 08/09/16 08/09/16 15:04 15:34 16:00 16:00 Temp 97.6 97.6 Pulse 96 Resp 17 17 16 B/P 173/76 Pulse Ox 100 100 100 O2 Delivery Ventilator Ventilator Mechanical Ventilator Ventilator 08/09/16 08/09/16 08/09/16 08/09/16 16:22 17:00 18:00 19:00 Pulse 96 113 114 Resp 14 14 16 B/P 145/85 170/80 143/80 Pulse Ox 100 100 100 100 O2 Delivery Ventilator Ventilator Ventilator Ventilator 08/09/16 08/09/16 08/09/16 08/09/16 20:00 20:00 20:40 21:00 Temp 98.1 98.1 Pulse 111 110 Resp 16 14 B/P 162/82 154/88 Pulse Ox 100 100 100 O2 Delivery Mechanical Ventilator Ventilator Ventilator Ventilator 08/09/16 08/09/16 08/09/16 08/10/16 22:00 23:00 23:46 00:00 Pulse 108 94 Resp 15 14 B/P 124/73 123/68 Pulse Ox 100 100 100 O2 Delivery Ventilator Ventilator Ventilator Mechanical Ventilator 08/10/16 08/10/16 08/10/16 08/10/16 00:00 01:00 01:31 02:00 Temp 97.3 97.3 Pulse 94 107 98 Resp 15 15 15 B/P 138/76 157/90 158/92 Pulse Ox 100 100 100 100 O2 Delivery Ventilator Ventilator Ventilator Ventilator 08/10/16 08/10/16 08/10/16 08/10/16 03:00 03:35 04:00 04:00 Temp 98.2 98.2 Pulse 104 99 Resp 14 14 B/P 132/78 154/81 Pulse Ox 100 100 100 O2 Delivery Ventilator Ventilator Ventilator Mechanical Ventilator 08/10/16 08/10/16 08/10/16 08/10/16 05:00 05:49 06:00 08:10 Pulse 98 88 Resp 14 14 B/P 148/85 154/76 Pulse Ox 100 100 100 100 O2 Delivery Ventilator Ventilator Ventilator Ventilator 08/10/16 08:30 O2 Delivery Ventilator Intake and Output 08/09/16 08/09/16 08/10/16 15:00 23:00 07:00 Intake Total 393 ml 413 ml 887 ml Output Total 780 ml 1340 ml 590 ml Balance -387 ml -927 ml 297 ml LISSA ANTOINE MD Aug 10, 2016 09:56
--- NOTE | 2016-08-10 10:01 | PDOC ---
Objective: Objective: Per NG - a little blood? in NG this morning Vital Signs: Vital Signs Date Time Temp Pulse Resp B/P Pulse Ox O2 Delivery O2 Flow Rate FiO2 08/10/16 08:30 Ventilator 08/10/16 08:10 100 08/10/16 06:00 88 14 154/76 08/10/16 04:00 98.2 98.2 Labs: Laboratory Tests Test 08/09/16 11:04 08/09/16 11:30 08/09/16 16:20 08/09/16 16:30 Glucose (Fingerstick) 142mg/dL Prothrombin Time 15.3SEC Prothromb Time International Ratio 1.3 Activated Partial Thromboplast Time 37SEC Fibrinogen 231mg/dL O2 Saturation 98% Arterial Blood pH 7.55 Arterial Blood pCO2 at Patient Temp 33mmHg Arterial Blood pO2 at Patient Temp 119mmHg Arterial Blood HCO3 28mmol/L Arterial Blood Base Excess 6mmol/L FiO2 35 Sodium Level 153mmol/L Potassium Level 3.8mmol/L Chloride Level 112mmol/L Carbon Dioxide Level 34mmol/L Anion Gap 7 Blood Urea Nitrogen 83mg/dL Creatinine 1.2mg/dL Estimated GFR (Cockcroft-Gault) 55.3 Glucose Level 153mg/dL Calcium Level 9.2mg/dL Test 08/10/16 00:02 08/10/16 05:45 08/10/16 05:47 Glucose (Fingerstick) 132mg/dL 109mg/dL White Blood Count 7.6x10^3/uL Red Blood Count 3.22x10^6/uL Hemoglobin 8.3g/dL Hematocrit 26.5% Mean Corpuscular Volume 82fL Mean Corpuscular Hemoglobin 26pg Mean Corpuscular Hemoglobin Concent 31g/dL Red Cell Distribution Width 21.8% Platelet Count 71x10^3/uL Neutrophils (%) (Auto) 74% Lymphocytes (%) (Auto) 15% Monocytes (%) (Auto) 9% Eosinophils (%) (Auto) 1% Basophils (%) (Auto) 1% Neutrophils # (Auto) 5.6x10^3uL Lymphocytes # (Auto) 1.1x10^3/uL Monocytes # (Auto) 0.7x10^3/uL Eosinophils # (Auto) 0.1x10^3/uL Basophils # (Auto) 0.1x10^3/uL Sodium Level 154mmol/L Potassium Level 3.4mmol/L Chloride Level 113mmol/L Carbon Dioxide Level 33mmol/L Anion Gap 8 Blood Urea Nitrogen 78mg/dL Creatinine 1.0mg/dL Estimated GFR (Cockcroft-Gault) 68.2 Glucose Level 117mg/dL Calcium Level 9.4mg/dL Phosphorus Level 4.2mg/dL Magnesium Level 2.4mg/dL PE: GEN: intubated LUNGS: vent HEART: RRR ABD: tender (indicates stable), fistulas w/ bags - drains w/ light brownish liquid NEURO/PSYCH: awake A/P: Elevated bilirubin -last check 5.5 on 08/08 -imaging (CT, US) unrevealing ARF, sepsis, JULIO C -intubated/awake in ICU, on TPN H/o diverticular disease w/ fistulas, multiple abd surgeries ?blood in NG -on IV PPI, Hgb stable -- Other per Dr. Ovalle. MIESHA RICO Aug 10, 2016 10:01
[2016-08-10] MEDS ORDERED: IV DEXTROSE 5% 1,000 ML IV SCH (10:15)
--- NOTE | 2016-08-10 10:15 | PDOC ---
PROGRESS NOTES Subjective Subjective serum sodium 154. suspect she is losing fluids via her enterocutaneous fistula that is not being accounted. lab reviewed. making urine,. alert and intubated and held my hand. Objective Objective Vital Signs Date Time Temp Pulse Resp B/P Pulse Ox O2 Delivery O2 Flow Rate FiO2 08/10/16 08:30 Ventilator 08/10/16 08:10 100 08/10/16 06:00 88 14 154/76 08/10/16 04:00 98.2 98.2 08/08/16 10:21 50.0 Intake and Output 08/10/16 07:00 Intake Total 1693 ml Output Total 2710 ml Balance -1017 ml IV Total 806 ml Other 887 ml Output Urine Total 1395 ml Drainage Total 1315 ml Physical Exam Abdomen: Soft Heart: Regular rate, Normal S1, Normal S2 Extremities: Other (minimal edema upper extremities) General: Alert HEENT: Atraumatic Lungs: Other (clear anteriorly) Neuro: Other (intubated) Psych/Mental Status: Other (alert) Skin: No rashes Assessment Assessment Problems Medical Problems:andida glabrata fungemia . acute hypoxic respiratory failure. intubated on ventilator metabolic encephalopathy improved acute kidney injury due to ATN from sepsis. .improved bilateral lung infiltrates resolved disseminated intravascular coagulation. improved thrombocytopenia due to platelet antibody and sepsis. improved picc associated fungemia with sepsis . picc removed 4. Enterocutaneous fistula. 5. Enterovesical fistula. 6. Anemia of chronic disease. 7. Moderately severe protein calorie malnutrition. elevated bilirubin. suspect cholestasis hypokalemia hypernatremia (1) Abdominal pain Status: Acute (2) Enterocutaneous fistula Status: Acute (3) Sepsis Status: Acute (4) Urinary tract infection Status: Acute (5) UTI (urinary tract infection) Status: Acute Plan Plan of Care increase hypotonic iv fluids replete kcl continue iv micafungin and daptomycin ventilator weaning Comment Review of Relevant I have reviewed the following items lucila (where applicable) has been applied. Labs Laboratory Tests Test 08/08/16 11:40 08/08/16 13:15 08/08/16 18:42 08/09/16 00:18 Glucose (Fingerstick) 134mg/dL (70-99) 126mg/dL (70-99) 137mg/dL (70-99) Potassium Level 3.2mmol/L (3.5-5.1) Test 08/09/16 05:35 08/09/16 05:42 08/09/16 11:04 08/09/16 11:30 White Blood Count 9.2x10^3/uL (4.0-11.0) Red Blood Count 3.31x10^6/uL (3.50-5.40) Hemoglobin 8.5g/dL (12.0-15.5) Hematocrit 27.1% (36.0-47.0) Mean Corpuscular Volume 82fL (79-100) Mean Corpuscular Hemoglobin 26pg (25-35) Mean Corpuscular Hemoglobin Concent 31g/dL (31-37) Red Cell Distribution Width 21.1% (11.5-14.5) Platelet Count 68x10^3/uL (140-400) Neutrophils (%) (Auto) 72% (31-73) Lymphocytes (%) (Auto) 17% (24-48) Monocytes (%) (Auto) 7% (0-9) Eosinophils (%) (Auto) 3% (0-3) Basophils (%) (Auto) 1% (0-3) Neutrophils # (Auto) 6.5x10^3uL (1.8-7.7) Lymphocytes # (Auto) 1.6x10^3/uL (1.0-4.8) Monocytes # (Auto) 0.7x10^3/uL (0.0-1.1) Eosinophils # (Auto) 0.2x10^3/uL (0.0-0.7) Basophils # (Auto) 0.1x10^3/uL (0.0-0.2) Platelet Estimate Decreased (ADEQUATE) Giant Platelets Present Hypochromasia Present Anisocytosis Mod Sodium Level 151mmol/L (136-145) Potassium Level 3.7mmol/L (3.5-5.1) Chloride Level 110mmol/L (98-107) Carbon Dioxide Level 36mmol/L (21-32) Anion Gap 5 (6-14) Blood Urea Nitrogen 76mg/dL (7-20) Creatinine 1.1mg/dL (0.6-1.0) Estimated GFR (Cockcroft-Gault) 61.1 Glucose Level 110mg/dL (70-99) Lactic Acid Level 0.9mmol/L (0.4-2.0) Calcium Level 9.0mg/dL (8.5-10.1) Magnesium Level 2.4mg/dL (1.8-2.4) Vancomycin Level Trough < 0.8mcg/mL (10.0-20.0) Vancomycin Last Dose Date 08/08/16 Vancomycin Last Dose Time 1600 Glucose (Fingerstick) 113mg/dL (70-99) 142mg/dL (70-99) Prothrombin Time 15.3SEC (11.7-14.0) Prothromb Time International Ratio 1.3 (0.8-1.1) Activated Partial Thromboplast Time 37SEC (24-38) Fibrinogen 231mg/dL (200-440) Test 08/09/16 16:20 08/09/16 16:30 08/10/16 00:02 08/10/16 05:45 O2 Saturation 98% (92-99) Arterial Blood pH 7.55 (7.35-7.45) Arterial Blood pCO2 at Patient Temp 33mmHg (35-46) Arterial Blood pO2 at Patient Temp 119mmHg (65-108) Arterial Blood HCO3 28mmol/L (21-28) Arterial Blood Base Excess 6mmol/L (-3-3) FiO2 35 Sodium Level 153mmol/L (136-145) 154mmol/L (136-145) Potassium Level 3.8mmol/L (3.5-5.1) 3.4mmol/L (3.5-5.1) Chloride Level 112mmol/L (98-107) 113mmol/L (98-107) Carbon Dioxide Level 34mmol/L (21-32) 33mmol/L (21-32) Anion Gap 7 (6-14) 8 (6-14) Blood Urea Nitrogen 83mg/dL (7-20) 78mg/dL (7-20) Creatinine 1.2mg/dL (0.6-1.0) 1.0mg/dL (0.6-1.0) Estimated GFR (Cockcroft-Gault) 55.3 68.2 Glucose Level 153mg/dL (70-99) 117mg/dL (70-99) Calcium Level 9.2mg/dL (8.5-10.1) 9.4mg/dL (8.5-10.1) Glucose (Fingerstick) 132mg/dL (70-99) White Blood Count 7.6x10^3/uL (4.0-11.0) Red Blood Count 3.22x10^6/uL (3.50-5.40) Hemoglobin 8.3g/dL (12.0-15.5) Hematocrit 26.5% (36.0-47.0) Mean Corpuscular Volume 82fL (79-100) Mean Corpuscular Hemoglobin 26pg (25-35) Mean Corpuscular Hemoglobin Concent 31g/dL (31-37) Red Cell Distribution Width 21.8% (11.5-14.5) Platelet Count 71x10^3/uL (140-400) Neutrophils (%) (Auto) 74% (31-73) Lymphocytes (%) (Auto) 15% (24-48) Monocytes (%) (Auto) 9% (0-9) Eosinophils (%) (Auto) 1% (0-3) Basophils (%) (Auto) 1% (0-3) Neutrophils # (Auto) 5.6x10^3uL (1.8-7.7) Lymphocytes # (Auto) 1.1x10^3/uL (1.0-4.8) Monocytes # (Auto) 0.7x10^3/uL (0.0-1.1) Eosinophils # (Auto) 0.1x10^3/uL (0.0-0.7) Basophils # (Auto) 0.1x10^3/uL (0.0-0.2) Phosphorus Level 4.2mg/dL (2.6-4.7) Magnesium Level 2.4mg/dL (1.8-2.4) Test 08/10/16 05:47 Glucose (Fingerstick) 109mg/dL (70-99) Laboratory Tests Test 08/09/16 11:04 08/09/16 11:30 08/09/16 16:20 08/09/16 16:30 Glucose (Fingerstick) 142mg/dL (70-99) Prothrombin Time 15.3SEC (11.7-14.0) Prothromb Time International Ratio 1.3 (0.8-1.1) Activated Partial Thromboplast Time 37SEC (24-38) Fibrinogen 231mg/dL (200-440) O2 Saturation 98% (92-99) Arterial Blood pH 7.55 (7.35-7.45) Arterial Blood pCO2 at Patient Temp 33mmHg (35-46) Arterial Blood pO2 at Patient Temp 119mmHg (65-108) Arterial Blood HCO3 28mmol/L (21-28) Arterial Blood Base Excess 6mmol/L (-3-3) FiO2 35 Sodium Level 153mmol/L (136-145) Potassium Level 3.8mmol/L (3.5-5.1) Chloride Level 112mmol/L (98-107) Carbon Dioxide Level 34mmol/L (21-32) Anion Gap 7 (6-14) Blood Urea Nitrogen 83mg/dL (7-20) Creatinine 1.2mg/dL (0.6-1.0) Estimated GFR (Cockcroft-Gault) 55.3 Glucose Level 153mg/dL (70-99) Calcium Level 9.2mg/dL (8.5-10.1) Test 08/10/16 00:02 08/10/16 05:45 08/10/16 05:47 Glucose (Fingerstick) 132mg/dL (70-99) 109mg/dL (70-99) White Blood Count 7.6x10^3/uL (4.0-11.0) Red Blood Count 3.22x10^6/uL (3.50-5.40) Hemoglobin 8.3g/dL (12.0-15.5) Hematocrit 26.5% (36.0-47.0) Mean Corpuscular Volume 82fL (79-100) Mean Corpuscular Hemoglobin 26pg (25-35) Mean Corpuscular Hemoglobin Concent 31g/dL (31-37) Red Cell Distribution Width 21.8% (11.5-14.5) Platelet Count 71x10^3/uL (140-400) Neutrophils (%) (Auto) 74% (31-73) Lymphocytes (%) (Auto) 15% (24-48) Monocytes (%) (Auto) 9% (0-9) Eosinophils (%) (Auto) 1% (0-3) Basophils (%) (Auto) 1% (0-3) Neutrophils # (Auto) 5.6x10^3uL (1.8-7.7) Lymphocytes # (Auto) 1.1x10^3/uL (1.0-4.8) Monocytes # (Auto) 0.7x10^3/uL (0.0-1.1) Eosinophils # (Auto) 0.1x10^3/uL (0.0-0.7) Basophils # (Auto) 0.1x10^3/uL (0.0-0.2) Sodium Level 154mmol/L (136-145) Potassium Level 3.4mmol/L (3.5-5.1) Chloride Level 113mmol/L (98-107) Carbon Dioxide Level 33mmol/L (21-32) Anion Gap 8 (6-14) Blood Urea Nitrogen 78mg/dL (7-20) Creatinine 1.0mg/dL (0.6-1.0) Estimated GFR (Cockcroft-Gault) 68.2 Glucose Level 117mg/dL (70-99) Calcium Level 9.4mg/dL (8.5-10.1) Phosphorus Level 4.2mg/dL (2.6-4.7) Magnesium Level 2.4mg/dL (1.8-2.4) Microbiology 08/01/16 Blood Culture - Final, Complete NO GROWTH AFTER 5 DAYS 07/15/16 Urine Culture - Final, Complete 07/15/16 Urine Culture Result 1 (ROYA) - Final, Complete 07/15/16 Urine Culture Result 2 (ROYA) - Final, Complete 07/15/16 Antimicrobic Susceptibility - Final, Complete 07/29/16 Aerobic Culture - Final, Complete 07/29/16 Aerobic Culture Result 1 (ROYA) - Final, Complete Medications Current Medications Piperacillin Sod/ Tazobactam Sod/ Sodium Chloride (Zosyn/Iv Sodium Chloride 0.9 % 100ml) 100 ml @ 200 mls/hr 1X ONCE IV Last administered on 07/15/16 22:56; Start 07/15/16 at 22:00; Stop 07/15/16 at 22:29; Status DC Fentanyl Citrate 50 mcg 50 mcg PRN Q15MIN PRN IV PAIN GREATER THAN 3/10 Last administered on 07/16/16 00:30; Start 07/15/16 at 21:45; Stop 07/16/16 at 02:00; Status DC Sodium Chloride 1,000 ml @ 1,000 mls/hr 1X ONCE IV Last administered on 21:59; Start 07/15/16 at 22:00; Stop 07/15/16 at 22:59; Status DC Sodium Chloride (Iv Sodium Chloride 0.9% 500ml Bag) 500 ml @ 500 mls/hr 1X ONCE IV Last administered on 07/15/16 22:00; Start 07/15/16 at 22:00; Stop at 22:59; Status DC Ondansetron HCl (Zofran) 4 mg PRN Q8HRS PRN IV NAUSEA/VOMITING; Start 07/15/16 at 23:30; Stop 07/16/16 at 08:52; Status DC Fentanyl Citrate 50 mcg 50 mcg PRN Q2HR PRN IV SEVERE PAIN Last administered on 07/16/16 08:10; Start 07/15/16 at 23:30; Stop 07/16/16 at 08:52; Status DC Sodium Chloride (Iv Sodium Chloride 0.9% 1000ml Bag) 1,000 ml @ 150 mls/hr Q6H40M IV Last administered on 07/15/16 02:00; Start 07/15/16 at 23:45; Stop 07/16/16 at 08:52; Status DC Acetaminophen (Tylenol) 650 mg PRN Q4HRS PRN PO FEVER; Start 07/15/16 at 23:30; Stop 07/16/16 at 23:29; Status DC Info (Do NOT chart on this placeholder) 1 each PRN DAILY PRN MC NEEDS VERIFICATION; Start 07/16/16 at 03:00; Status Cancel Acetaminophen 650 mg 650 mg PRN Q4HRS PRN PO MILD PAIN / TEMP Last administered on 07/28/16 07:42; Start 07/16/16 at 08:45; Stop 07/29/16 at 08:33 ; Status DC Piperacillin Sod/ Tazobactam Sod 3.375 gm/Sodium Chloride 50 ml @ 100 mls/hr Q6HRS IV Last administered on 07/18/16 05:50; Start 07/16/16 at 10:00; Stop 07/18 at 13:28; Status DC Linezolid (Zyvox Premix) 300 ml @ 300 mls/hr Q12HR IV Last administered on 07/18 08:34; Start 07/16/16 at 10:00; Stop 07/18/16 at 13:28; Status DC Hydromorphone HCl (Dilaudid) 2 mg PRN Q4HRS PRN IV MODERATE PAIN Last administered on 08/09/16 06:39; Start 07/16/16 at 08:45; Stop 08/09/16 at 17:35 ; Status DC Hydromorphone HCl (Dilaudid) 4 mg PRN Q4HRS PRN IV SEVERE PAIN Last administered on 07/30/16 09:23; Start 07/16/16 at 08:45; Stop 07/31/16 at 15:01 ; Status DC Pantoprazole Sodium (Protonix) 40 mg DAILYAC PO Last administered on 07/27/16 11:11; Start 07/16/16 at 09:30; Stop 07/29/16 at 08:44; Status DC Hyoscyamine (Anaspaz) 0.125 mg Q6HRS PO Last administered on 07/20/16 05:20; Start 07/16/16 at 12:00; Stop 07/20/16 at 08:58; Status DC Phenazopyridine HCl (Pyridium) 200 mg TID PO Last administered on 07/20/16 08: 25; Start 07/16/16 at 09:30; Stop 07/20/16 at 08:58; Status DC Lorazepam (Ativan) 0.5 mg PRN BID PRN PO ANXIETY / AGITATION Last administered on 07/29/16 02:16; Start 07/16/16 at 08:45; Stop 07/31/16 at 15:01; Status DC Simethicone (Gas-X) 80 mg PRN Q4HRS PRN PO GAS / BLOATING Last administered on 07/24/16 22:30; Start 07/16/16 at 08:45; Stop 07/31/16 at 15:01; Status DC Zolpidem Tartrate 5 mg 5 mg PRN QHS PRN PO INSOMNIA Last administered on 23:14; Start 07/16/16 at 08:45; Stop 07/31/16 at 15:01; Status DC Potassium Chloride/Dextrose/ Sod Cl 1,000 ml @ 80 mls/hr [id number] IV Last administered on 07/16/16 10:54; Start 07/16/16 at 09:30; Stop 07/16/16 at 21:59; Status DC Fluconazole/ Sodium Chloride (Diflucan 200mg/ 100ml Premix) 100 ml @ 100 mls/ hr Q24H IV Last administered on 07/18/16 11:43; Start 07/16/16 at 11:00; Stop at 13:28; Status DC Info 1 each 1 each PRN DAILY PRN MC SEE COMMENTS Last administered on 12:41; Start 07/16/16 at 10:00; Stop 08/01/16 at 11:24; Status DC Sodium Chloride 220 meq/Sodium Acetate 90 meq/ Potassium Chloride 50 meq/ Potassium Acetate 15 meq/Potassium Phosphate 10 mmol/ Magnesium Sulfate 50 meq/ Calcium Gluconate 6 meq/ Multivitamins/ Minerals 10 ml/ Chromium/Copper/ Manganese/Seleni/ Zn 1 ml/Total Parenteral Nutrition/Amino Acids/Dextro... 1, 920 ml @ 80 mls/hr TPN CONT IV ; Start 07/16/16 at 22:00; Stop 07/16/16 at 22:00 ; Status DC Sodium Chloride/ Sodium Acetate/ Potassium Chloride/ Potassium Acetate/ Potassium Phosphate/ Magnesium Sulfate/ Calcium Gluconate/ Multivitamins/ Minerals/Chromium/ Copper/Manganese/ Seleni/Zn/Total Parenteral Nutrition/Amino Acids/Dextrose/ Fat Emulsion Intravenous (Sodium Chlori... 1,820 ml @ 75.833 mls/ hr TPN CONT IV Last administered on 07/16/16 21:03; Start 07/16/16 at 22: 00; Stop 07/17/16 at 21:59; Status DC Ondansetron HCl (Zofran) 4 mg PRN Q6HRS PRN IV NAUSEA/VOMITING Last administered on 07/21/16 08:48; Start 07/16/16 at 17:15; Stop 07/31/16 at 15:01; Status DC Diphenhydramine HCl (Benadryl) 25 mg PRN Q6HRS PRN PO ITCHING Last administered on 07/25/16 23:38; Start 07/16/16 at 17:45; Stop 07/31/16 at 15:01 ; Status DC Lidocaine (Xylocaine) 1 sang BID TP Last administered on 08/10/16 08:14; Start 07/17/16 at 09:00 Zinc Oxide 1 sang 1 sang BID TP Last administered on 08/10/16 08:13; Start at 09:30 Sodium Chloride/ Sodium Acetate/ Potassium Chloride/ Potassium Acetate/ Potassium Phosphate/ Magnesium Sulfate/ Calcium Gluconate/ Multivitamins/ Minerals/Chromium/ Copper/Manganese/ Seleni/Zn/Total Parenteral Nutrition/Amino Acids/Dextrose/ Fat Emulsion Intravenous (Sodium Chlori... 1,920 ml @ 80 mls/ hr TPN CONT IV Last administered on 07/17/16 22:13; Start 07/17/16 at 22:00; Stop 07/18/16 at 21:59; Status DC Furosemide 40 mg 40 mg 1X ONCE IVP Last administered on 07/18/16 11:43; Start 07/18/16 at 11:00; Stop 07/18/16 at 11:07; Status DC Sodium Chloride 220 meq/Sodium Acetate 90 meq/ Potassium Chloride 50 meq/ Potassium Acetate 15 meq/Potassium Phosphate 10 mmol/ Magnesium Sulfate 50 meq/ Calcium Gluconate 3 meq/ Multivitamins/ Minerals 10 ml/ Chromium/Copper/ Manganese/Seleni/ Zn 1 ml/Total Parenteral Nutrition/Amino Acids/Dextro... 1, 920 ml @ 80 mls/hr TPN CONT IV Last administered on 07/19/16 00:03; Start 07/18/16 at 22:00; Stop 07/19/16 at 21:59; Status DC Meropenem 1 gm/ Sodium Chloride 100 ml @ 200 mls/hr Q8HRS IV Last administered on 07/20/16 05:21; Start 07/18/16 at 14:00; Stop 07/20/16 at 11:25; Status DC Micafungin Sodium 100 mg/Dextrose 100 ml @ 100 mls/hr Q24H IV Last administered on 07/19/16 15:05; Start 07/18/16 at 14:00; Stop 07/20/16 at 11:25; Status DC Daptomycin/Sodium Chloride (Cubicin/Iv Sodium Chloride 0.9% 50ml) 50 ml @ 100 mls/hr Q24H IV Last administered on 07/19/16 16:56; Start 07/18/16 at 15:00; Stop 07/20/16 at 11:25; Status DC Alteplase, Recombinant (Cathflo) 2 mg 1X ONCE INT CAT Last administered on 07/19 06:24; Start 07/19/16 at 07:00; Stop 07/19/16 at 07:01; Status DC Gentamicin Sulfate 1 each 1 each PRN DAILY PRN MC SEE COMMENTS Last administered on 07/25/16 15:31; Start 07/19/16 at 12:15; Stop 07/25/16 at 16:14 ; Status DC Gentamicin Sulfate/Sodium Chloride (Iv Sodium Chloride 0.9% 100ml) 106.75 ml @ 106.75 mls/hr Q24H IV Last administered on 07/25/16 15:31; Start 07/19/16 at 13 :00; Stop 07/25/16 at 16:12; Status DC Gentamicin Sulfate 1 each 1 each 1X ONCE MC Last administered on 07/19/16 23: 00; Start 07/19/16 at 23:00; Stop 07/19/16 at 23:01; Status DC Sodium Chloride/ Sodium Acetate/ Potassium Chloride/ Potassium Acetate/ Potassium Phosphate/ Magnesium Sulfate/ Calcium Gluconate/ Multivitamins/ Minerals/Chromium/ Copper/Manganese/ Seleni/Zn/Total Parenteral Nutrition/Amino Acids/Dextrose/ Fat Emulsion Intravenous (Sodium Chlori... 1,920 ml @ 80 mls/ hr TPN CONT IV Last administered on 07/19/16 20:51; Start 07/19/16 at 22:00; Stop 07/20/16 at 21:59; Status DC Hyoscyamine (Anaspaz) 0.125 mg PRN Q6HRS PRN PO BLADDER SPASM; Start 07/20/16 at 09:00; Stop 07/31/16 at 15:01; Status DC Phenazopyridine HCl 200 mg 200 mg PRN TID PRN PO BLADDER SPASM Last administered on 07/21/16 20:14; Start 07/20/16 at 09:00; Stop 07/31/16 at 15:01; Status DC Linezolid 300 ml @ 300 mls/hr Q12HR IV Last administered on 07/25/16 09:02; Start 07/20/16 at 12:00; Stop 07/25/16 at 16:12; Status DC Sodium Chloride 220 meq/Sodium Acetate 90 meq/ Potassium Chloride 50 meq/ Potassium Acetate 15 meq/Potassium Phosphate 10 mmol/ Magnesium Sulfate 50 meq/ Calcium Gluconate 3 meq/ Multivitamins/ Minerals 10 ml/ Chromium/Copper/ Manganese/Seleni/ Zn 1 ml/Total Parenteral Nutrition/Amino Acids/Dextro... 1, 920 ml @ 80 mls/hr TPN CONT IV Last administered on 07/20/16 21:30; Start 07/20/16 at 22:00; Stop 07/21/16 at 21:59; Status DC Sodium Chloride/ Sodium Acetate/ Potassium Chloride/ Potassium Acetate/ Potassium Phosphate/ Magnesium Sulfate/ Multivitamins/ Minerals/Chromium/ Copper /Manganese/ Seleni/Zn/Total Parenteral Nutrition/Amino Acids/Dextrose/ Fat Emulsion Intravenous (Sodium Chloride/ Potass... 1,920 ml @ 80 mls/hr TPN CONT IV Last administered on 07/21/16 22:05; Start 07/21/16 at 22:00; Stop at 21:59; Status DC Alteplase, Recombinant 2 mg 2 mg PRN DAILY PRN INT CAT INFLAMMATION Last administered on 07/27/16 11:31; Start 07/21/16 at 15:00 Sodium Chloride 220 meq/Sodium Acetate 90 meq/ Potassium Chloride 50 meq/ Potassium Acetate 15 meq/Potassium Phosphate 10 mmol/ Magnesium Sulfate 50 meq/ Multivitamins/ Minerals 10 ml/ Chromium/Copper/ Manganese/Seleni/ Zn 1 ml/Total Parenteral Nutrition/Amino Acids/Dextrose/ Fat Emuls... 1,920 ml @ 80 mls/hr TPN CONT IV Last administered on 07/22/16 20:53; Start 07/22/16 at 22:00; Stop 07/23/16 at 21:59; Status DC Sodium Chloride/ Sodium Acetate/ Potassium Chloride/ Potassium Acetate/ Potassium Phosphate/ Magnesium Sulfate/ Multivitamins/ Minerals/Chromium/ Copper /Manganese/ Seleni/Zn/Total Parenteral Nutrition/Amino Acids/Dextrose/ Fat Emulsion Intravenous (Sodium Chloride/ Potass... 1,920 ml @ 80 mls/hr TPN CONT IV Last administered on 07/23/16 21:16; Start 07/23/16 at 22:00; Stop 07/24 at 21:59; Status DC Gentamicin Sulfate 1 each 1 each 1X ONCE MC ; Start 07/23/16 at 22:00; Stop 07/23 at 22:01; Status Cancel Sodium Chloride/ Sodium Acetate/ Potassium Chloride/ Potassium Acetate/ Potassium Phosphate/ Magnesium Sulfate/ Multivitamins/ Minerals/Chromium/ Copper /Manganese/ Seleni/Zn/Total Parenteral Nutrition/Amino Acids/Dextrose/ Fat Emulsion Intravenous (Sodium Chloride/ Potass... 1,920 ml @ 80 mls/hr TPN CONT IV Last administered on 07/24/16 21:15; Start 07/24/16 at 22:00; Stop 04/30 at 21:59; Status DC Gentamicin Sulfate 1 each 1X ONCE MC ; Start 07/25/16 at 12:30; Stop 07/25/16 at 12:31; Status Cancel Amlodipine Besylate 5 mg 5 mg DAILY PO Last administered on 07/27/16 11:12; Start 07/25/16 at 12:00; Stop 07/29/16 at 08:44; Status DC Sodium Chloride 220 meq/Sodium Acetate 90 meq/ Potassium Chloride 30 meq/ Potassium Acetate 15 meq/Potassium Phosphate 10 mmol/ Magnesium Sulfate 50 meq/ Multivitamins/ Minerals 10 ml/ Chromium/Copper/ Manganese/Seleni/ Zn 1 ml/Total Parenteral Nutrition/Amino Acids/Dextrose/ Fat Emuls... 1,920 ml @ 80 mls/hr TPN CONT IV Last administered on 07/25/16 22:25; Start 07/25/16 at 22:00; Stop 07/26/16 at 21:59; Status DC Sodium Chloride/ Sodium Acetate/ Potassium Chloride/ Potassium Acetate/ Potassium Phosphate/ Magnesium Sulfate/ Multivitamins/ Minerals/Chromium/ Copper /Manganese/ Seleni/Zn/Total Parenteral Nutrition/Amino Acids/Dextrose/ Fat Emulsion Intravenous (Sodium Chloride/ Potass... 1,920 ml @ 80 mls/hr TPN CONT IV Last administered on 07/26/16 23:16; Start 07/26/16 at 22:00; Stop at 21:59; Status DC Furosemide 20 mg 20 mg 1X ONCE IVP Last administered on 07/27/16 11:31; Start 07/27/16 at 09:00; Stop 07/27/16 at 09:01; Status DC Daptomycin 340 mg/ Sodium Chloride 50 ml @ 100 mls/hr Q24H IV Last administered on 07/29/16 15:05; Start 07/27/16 at 13:00; Stop 07/30/16 at 07:25 ; Status DC Piperacillin Sod/ Tazobactam Sod 3.375 gm/Sodium Chloride 50 ml @ 100 mls/hr Q6HRS IV Last administered on 07/30/16 05:30; Start 07/27/16 at 12:30; Stop at 07:25; Status DC Fluconazole/ Sodium Chloride 100 ml @ 100 mls/hr Q24H IV Last administered on 07/28/16 13:32; Start 07/27/16 at 13:00; Stop 07/29/16 at 00:53; Status DC Sodium Chloride 1,000 ml @ 1,000 mls/hr 1X ONCE IV Last administered on 12:34; Start 07/27/16 at 12:30; Stop 07/27/16 at 13:29; Status DC Sodium Chloride 220 meq/Sodium Acetate 90 meq/ Potassium Chloride 30 meq/ Potassium Acetate 15 meq/Potassium Phosphate 10 mmol/ Magnesium Sulfate 45 meq/ Multivitamins/ Minerals 10 ml/ Chromium/Copper/ Manganese/Seleni/ Zn 1 ml/Total Parenteral Nutrition/Amino Acids/Dextrose/ Fat Emuls... 1,920 ml @ 80 mls/hr TPN CONT IV Last administered on 07/27/16 22:38; Start 07/27/16 at 22:00; Stop 07/28/16 at 21:59; Status DC Sodium Chloride (Iv Sodium Chloride 0.9% 1000ml Bag) 1,000 ml @ 45 mls/hr [id number] IV Last administered on 07/28/16 03:24; Start 07/27/16 at 17:00; Stop 07/28/16 at 10:27; Status DC Acetaminophen 650 mg 650 mg PRN Q6HRS PRN CT fever Last administered on 03:57; Start 07/27/16 at 16:30; Stop 07/29/16 at 08:33; Status DC Sodium Chloride 1,000 ml @ 427.5 mls/ hr Q2H21M IV Last administered on 19:30; Start 07/27/16 at 19:30; Stop 07/27/16 at 23:30; Status DC Sodium Chloride 220 meq/Sodium Acetate 90 meq/ Potassium Chloride 30 meq/ Potassium Acetate 15 meq/Potassium Phosphate 10 mmol/ Magnesium Sulfate 45 meq/ Multivitamins/ Minerals 10 ml/ Chromium/Copper/ Manganese/Seleni/ Zn 1 ml/Total Parenteral Nutrition/Amino Acids/Dextrose/ Fat Emuls... 1,920 ml @ 80 mls/hr TPN CONT IV Last administered on 07/28/16 21:43; Start 07/28/16 at 22:00; Stop 07/29/16 at 21:59; Status DC Micafungin Sodium/ Dextrose (Mycamine) 100 ml @ 100 mls/hr Q24H IV Last administered on 08/10/16 01:05; Start 07/29/16 at 01:00 Lorazepam (Ativan) 0.05 mg PRN Q4HRS PRN IV ANXIETY / AGITATION; Start at 02:30; Stop 07/29/16 at 02:48; Status DC Lorazepam (Ativan) 0.5 mg PRN Q4HRS PRN IV ANXIETY / AGITATION Last administered on 08/09/16 17:19; Start 07/29/16 at 03:00 Acetaminophen (Tylenol) 650 [address]N Q4HRS PRN CT MILD PAIN / TEMP; Start at 08:30 Ketorolac Tromethamine (Toradol) 30 mg PRN Q6HRS PRN IV PAIN/FEVER Last administered on 07/30/16 00:50; Start 07/29/16 at 08:30; Stop 07/30/16 at 13:01 ; Status DC Pantoprazole Sodium 40 mg 40 mg DAILYAC IVP Last administered on 08/10/16 08: 13; Start 07/29/16 at 09:00 Sodium Chloride 1,000 ml @ 45 mls/hr [id number] IV Last administered on 09:17; Start 07/29/16 at 08:45; Stop 07/31/16 at 15:01; Status DC Sodium Chloride/ Sodium Acetate/ Potassium Chloride/ Potassium Acetate/ Potassium Phosphate/ Magnesium Sulfate/ Multivitamins/ Minerals/Chromium/ Copper /Manganese/ Seleni/Zn/Total Parenteral Nutrition/Amino Acids/Dextrose/ Fat Emulsion Intravenous (Sodium Chloride/ Potass... 1,920 ml @ 80 mls/hr TPN CONT IV Last administered on 07/29/16 22:06; Start 07/29/16 at 22:00; Stop at 21:59; Status DC Lidocaine/Sodium Bicarbonate 20 ml 20 ml STK-MED ONCE IJ ; Start 07/29/16 at 13: 13; Stop 07/29/16 at 13:14; Status DC Heparin Sodium/ Sodium Chloride 500 ml @ As Directed STK-MED ONCE .ROUTE ; Start 07/29/16 at 13:13; Stop 07/29/16 at 13:14; Status DC Lidocaine/ Epinephrine (Xylocaine 1%-Epi 1:100,000) 20 ml STK-MED ONCE .ROUTE ; Start 07/29/16 at 13:22; Stop 07/29/16 at 13:23; Status DC Midazolam HCl (Versed) 5 mg STK-MED ONCE .ROUTE ; Start 07/29/16 at 13:32; Stop 07/29/16 at 13:33; Status DC Fentanyl Citrate (Fentanyl 5ml Vial) 250 mcg STK-MED ONCE .ROUTE ; Start at 13:32; Stop 07/29/16 at 13:33; Status DC Heparin Sodium/ Sodium Chloride 1,000 unit 1X ONCE IART Last administered on 13:45; Start 07/29/16 at 13:45; Stop 07/29/16 at 13:48; Status DC Midazolam HCl (Versed) 5 mg 1X ONCE IV Last administered on 07/29/16 13:45; Start 07/29/16 at 13:45; Stop 07/29/16 at 13:48; Status DC Fentanyl Citrate (Fentanyl 5ml Vial) 250 mcg 1X ONCE IV Last administered on 13:45; Start 07/29/16 at 13:45; Stop 07/29/16 at 13:48; Status DC Lidocaine/ Epinephrine 20 ml 20 ml 1X ONCE IJ Last administered on 07/29/16 13:45; Start 07/29/16 at 13:45; Stop 07/29/16 at 13:48; Status DC Sodium Chloride 220 meq/Sodium Acetate 90 meq/ Potassium Chloride 15 meq/ Potassium Acetate 30 meq/Potassium Phosphate 10 mmol/ Magnesium Sulfate 45 meq/ Multivitamins/ Minerals 10 ml/ Chromium/Copper/ Manganese/Seleni/ Zn 1 ml/Total Parenteral Nutrition/Amino Acids/Dextrose/ Fat Emuls... 1,920 ml @ 80 mls/hr TPN CONT IV ; Start 07/30/16 at 22:00; Stop 07/31/16 at 21:59; Status DC Norepinephrine Bitartrate 8 mg/ Sodium Chloride 258 ml @ 1.93 mls/hr 1X ONCE IV Last administered on 07/30/16 11:17; Start 07/30/16 at 11:15; Stop at 15:43; Status DC Norepinephrine Bitartrate/Sodium Chloride (Levophed Vial/ Iv Sodium Chloride 0.9 % 250ml) 258 ml @ 0 mls/hr CONT PRN IV SEE I/O RECORD Last administered on 08/02 19:54; Start 07/30/16 at 11:15; Stop 08/04/16 at 09:29; Status DC Furosemide 60 mg 60 mg 1X ONCE IVP Last administered on 07/30/16 11:14; Start 07/30/16 at 11:15; Stop 07/30/16 at 11:16; Status DC Sodium Chloride 500 ml @ 500 mls/hr Q1H IV Last administered on 07/30/16 17: 04; Start 07/30/16 at 14:30; Stop 07/30/16 at 15:29; Status DC Albumin Human 100 ml @ 100 mls/hr Q8HRS IV Last administered on 07/31/16 05: 37; Start 07/30/16 at 14:30; Stop 07/31/16 at 06:59; Status DC Furosemide/Sodium Chloride (Lasix Drip/Iv Sodium Chloride 0.9% 100ml) 100 ml @ 0 mls/hr CONT PRN IV SEE I/O RECORD Last administered on 07/31/16 03:17; Start 07/30/16 at 14:30; Stop 08/01/16 at 13:19; Status DC Ondansetron HCl (Zofran) 8 mg PRN Q8HRS PRN IV NAUSEA/VOMITING Last administered on 07/30/16 14:38; Start 07/30/16 at 14:30 Sodium Bicarbonate 50 meq 50 meq 1X ONCE IV Last administered on 07/30/16 14: 43; Start 07/30/16 at 14:30; Stop 07/30/16 at 14:31; Status DC Heparin Sodium/ Sodium Chloride 500 ml @ As Directed STK-MED ONCE .ROUTE ; Start 07/30/16 at 14:49; Stop 07/30/16 at 14:50; Status DC Lidocaine HCl 20 ml STK-MED ONCE .ROUTE ; Start 07/30/16 at 14:49; Stop at 14:50; Status DC Midazolam HCl (Versed) 2 mg STK-MED ONCE .ROUTE ; Start 07/30/16 at 15:19; Stop 07/30/16 at 15:20; Status DC Heparin Sodium/ Sodium Chloride 1,000 unit 1X ONCE IART Last administered on 15:44; Start 07/30/16 at 15:45; Stop 07/30/16 at 15:46; Status DC Midazolam HCl (Versed) 1.5 mg 1X ONCE IV Last administered on 07/30/16 15:44 ; Start 07/30/16 at 15:45; Stop 07/30/16 at 15:46; Status DC Lidocaine HCl 20 ml 1X ONCE IJ Last administered on 07/30/16 15:44; Start at 15:45; Stop 07/30/16 at 15:46; Status DC Heparin Sodium (Porcine) 50022 unit 10,000 unit STK-MED ONCE .ROUTE ; Start at 15:54; Stop 07/30/16 at 15:55; Status DC Fentanyl Citrate 30 ml @ 0 mls/hr CONT PRN PRN IV PROTOCOL Last administered on 08/08/16 10:21; Start 07/30/16 at 16:45; Stop 08/08/16 at 11:03; Status DC Sodium Bicarbonate/ Dextrose 1,150 ml @ 125 mls/hr 1X ONCE IV Last administered on 07/30/16 18:34; Start 07/30/16 at 17:30; Stop 07/31/16 at 02:41 ; Status DC Succinylcholine Chloride 200 mg 200 mg STK-MED ONCE .ROUTE ; Start 07/30/16 at 19:47; Stop 07/30/16 at 19:48; Status DC Propofol 100 ml @ As Directed STK-MED ONCE IV ; Start 07/30/16 at 19:48; Stop 07/30/16 at 19:49; Status DC Midazolam HCl (Versed 100mg/ 100ml Premix) 100 ml @ 0 mls/hr CONT PRN IV SEE I/ O RECORD Last administered on 08/03/16 12:18; Start 07/30/16 at 21:15 Sodium Bicarbonate 50 meq 50 meq 1X ONCE IV Last administered on 07/30/16 22: 15; Start 07/30/16 at 22:30; Stop 07/30/16 at 22:31; Status DC Dopamine HCl/ Dextrose 250 ml @ 11.513 mls/ hr CONT PRN IV SEE I/O RECORD Last administered on 07/31/16 20:16; Start 07/30/16 at 22:15; Stop 08/04/16 at 09:29; Status DC Sodium Bicarbonate/ Dextrose 1,150 ml @ 125 mls/hr Q9H12M IV Last administered on 08/01/16 09:30; Start 07/31/16 at 03:00; Stop 08/01/16 at 13:19 ; Status DC Propofol (Diprivan) 1,000 mg STK-MED ONCE IV ; Start 07/30/16 at 20:00; Stop at 08:16; Status DC Succinylcholine Chloride 200 mg 200 mg STK-MED ONCE .ROUTE ; Start 07/30/16 at 20:00; Stop 07/31/16 at 08:16; Status DC Tigecycline 50 mg/ Sodium Chloride 50 ml @ 100 mls/hr Q12HR IV Last administered on 08/04/16 09:01; Start 07/31/16 at 21:00; Stop 08/04/16 at 10:00 ; Status DC Tigecycline/ Sodium Chloride (Tygacil/Iv Sodium Chloride 0.9% 100ml) 100 ml @ 200 mls/hr 1X ONCE IV Last administered on 07/31/16 09:22; Start 07/31/16 at 09:00; Stop 07/31/16 at 09:29; Status DC Darbepoetin Sarbjit 60 mcg 60 mcg WEEKLYHS SQ Last administered on 08/07/16 21:41 ; Start 07/31/16 at 21:00 Albumin Human 100 ml @ 100 mls/hr 1X ONCE IV Last administered on 07/31/16 11:40; Start 07/31/16 at 11:15; Stop 07/31/16 at 12:14; Status DC Albumin Human 100 ml @ 100 mls/hr 1X ONCE IV Last administered on 07/31/16 12:03; Start 07/31/16 at 11:15; Stop 07/31/16 at 12:14; Status DC Sodium Chloride (Iv Sodium Chloride 0.9% 1000ml Bag) 1,000 ml @ 1,000 mls/hr Q1H PRN IV hypotension; Start 07/31/16 at 11:33; Stop 07/31/16 at 17:32; Status DC Info (PHARMACY MONITORING -- do not chart) 1 each PRN DAILY PRN MC SEE COMMENTS ; Start 07/31/16 at 11:45 Info (PHARMACY MONITORING -- do not chart) 1 each PRN DAILY PRN MC SEE COMMENTS ; Start 07/31/16 at 11:45; Status UNV Hydrocortisone Sodium Succinate (Solu-Cortef) 100 mg Q8HRS IV Last administered on 08/04/16 06:16; Start 08/01/16 at 07:00; Stop 08/04/16 at 09:29 ; Status DC Albuterol/ Ipratropium (Duoneb) 3 ml RTQID NEB Last administered on 08/10/16 08:30; Start 08/01/16 at 08:00 Albuterol/ Ipratropium 3 ml 3 ml STK-MED ONCE .ROUTE Last administered on 07:34; Start 08/01/16 at 06:59; Stop 08/01/16 at 07:00; Status DC Sodium Chloride 1,000 ml @ 1,000 mls/hr Q1H PRN IV hypotension; Start 08/01/16 at 06:57; Stop 08/01/16 at 12:56; Status DC Albumin Human (Albuminar) 200 ml @ 200 mls/hr 1X PRN PRN IV Hypotension; Start 08/01/16 at 07:00; Stop 08/01/16 at 12:59; Status DC Info (PHARMACY MONITORING -- do not chart) 1 each PRN DAILY PRN MC SEE COMMENTS ; Start 08/01/16 at 07:00; Status UNV Info 1 each 1 each PRN DAILY PRN MC SEE COMMENTS Last administered on 14:12; Start 08/01/16 at 13:30 Sodium Chloride 220 meq/Sodium Acetate 90 meq/ Potassium Chloride 15 meq/ Potassium Acetate 30 meq/Potassium Phosphate 10 mmol/ Magnesium Sulfate 45 meq/ Multivitamins/ Minerals 10 ml/ Chromium/Copper/ Manganese/Seleni/ Zn 1 ml/Total Parenteral Nutrition/Amino Acids/Dextrose/ Fat Emuls... 1,920 ml @ 80 mls/hr TPN CONT IV Last administered on 08/01/16 21:56; Start 08/01/16 at 22:00; Stop 08/02/16 at 21:59; Status DC Potassium Chloride (KCl Premix 20meq) 50 ml @ 50 mls/hr Q1H IV Last administered on 08/01/16 19:05; Start 08/01/16 at 17:00; Stop 08/01/16 at 18:59 ; Status DC Insulin Aspart 0-6 UNITS TIDWMEALS SQ Last administered on 08/02/16 11:33; Start 08/02/16 at 12:00; Stop 08/02/16 at 14:34; Status DC Sodium Chloride 220 meq/Sodium Acetate 90 meq/ Potassium Chloride 15 meq/ Potassium Acetate 30 meq/Magnesium Sulfate 45 meq/ Multivitamins/ Minerals 10 ml / Chromium/Copper/ Manganese/Seleni/ Zn 1 ml/Total Parenteral Nutrition/Amino Acids/Dextrose/ Fat Emulsion Intravenous 1,920 ml @ 80 mls/hr TPN CONT IV Last administered on 08/02/16 21:34; Start 08/02/16 at 22:00; Stop 08/03/16 at 21:59; Status DC Levofloxacin/ Dextrose 150 ml @ 100 mls/hr 1X ONCE IV Last administered on 14:35; Start 08/02/16 at 14:00; Stop 08/02/16 at 15:29; Status DC Daptomycin/Sodium Chloride (Cubicin/Iv Sodium Chloride 0.9% 50ml) 50 ml @ 100 mls/hr ONCE ONCE IV Last administered on 08/02/16 14:34; Start 08/02/16 at 15 :00; Stop 08/02/16 at 15:29; Status DC Insulin Aspart 0-6 UNITS Q6HRS SQ Last administered on 08/09/16 16:59; Start 08/02/16 at 18:00 Sodium Chloride (Iv Sodium Chloride 0.9% 1000ml Bag) 1,000 ml @ 1,000 mls/hr Q1H PRN IV hypotension; Start 08/03/16 at 07:26; Stop 08/03/16 at 13:25; Status DC Diphenhydramine HCl (Benadryl) 25 mg 1X PRN PRN IV ITCHING; Start 08/03/16 at 07:30; Stop 08/04/16 at 07:29; Status DC Diphenhydramine HCl (Benadryl) 25 mg 1X PRN PRN IV ITCHING; Start 08/03/16 at 07:30; Stop 08/04/16 at 07:29; Status DC Sodium Chloride (Normal Saline Flush) 10 ml 1X PRN PRN IV AP catheter pack; Start 08/03/16 at 07:30; Stop 08/04/16 at 07:29; Status DC Sodium Chloride 10 ml 10 ml 1X PRN PRN IV RN BURN catheter pack; Start 08/03/16 at 07:30; Stop 08/04/16 at 07:29; Status DC Sodium Chloride (Iv Sodium Chloride 0.9% 1000ml Bag) 1,000 ml @ 400 mls/hr Q2H30M PRN IV PATENCY; Start 08/03/16 at 07:26; Stop 08/03/16 at 19:25; Status DC Info 1 each 1 each PRN DAILY PRN MC SEE COMMENTS; Start 08/03/16 at 07:30; Status UNV Albumin Human 200 ml @ 200 mls/hr Q2HR IV Last administered on 08/03/16 10:00 ; Start 08/03/16 at 08:44; Stop 08/03/16 at 10:59; Status DC Sodium Chloride 160 meq/Sodium Acetate 60 meq/ Potassium Chloride 15 meq/ Potassium Acetate 30 meq/Magnesium Sulfate 25 meq/ Multivitamins/ Minerals 10 ml / Chromium/Copper/ Manganese/Seleni/ Zn 1 ml/Total Parenteral Nutrition/Amino Acids/Dextrose/ Fat Emulsion Intravenous 1,500 ml @ 62.5 mls/hr TPN CONT IV Last administered on 08/03/16 22:52; Start 08/03/16 at 22:00; Stop 08/04/16 at 21:59; Status DC Levofloxacin/ Dextrose 100 ml @ 100 mls/hr 1X ONCE IV Last administered on 10:50; Start 08/04/16 at 07:30; Stop 08/04/16 at 08:30; Status DC Daptomycin 450 mg/ Sodium Chloride 50 ml @ 100 mls/hr ONCE ONCE IV Last administered on 08/04/16 09:55; Start 08/04/16 at 08:00; Stop 08/04/16 at 08:30 ; Status DC Tigecycline/ Sodium Chloride (Tygacil/Iv Sodium Chloride 0.9% 50ml) 50 ml @ 100 mls/hr Q12HR IV Last administered on 08/09/16 07:20; Start 08/04/16 at 21: 00; Stop 08/09/16 at 09:42; Status DC Hydrocortisone Sodium Succinate 50 mg 50 mg Q8HRS IV Last administered on 05:39; Start 08/04/16 at 14:00; Stop 08/05/16 at 11:12; Status DC Furosemide 100 mg/ Sodium Chloride 100 ml @ 0 mls/hr CONT PRN IV SEE I/O RECORD Last administered on 08/09/16 06:43; Start 08/04/16 at 11:30; Stop 08/09 at 11:31; Status DC Sodium Chloride 160 meq/Sodium Acetate 60 meq/ Potassium Chloride 15 meq/ Potassium Acetate 30 meq/Magnesium Sulfate 25 meq/ Multivitamins/ Minerals 10 ml / Chromium/Copper/ Manganese/Seleni/ Zn 1 ml/Total Parenteral Nutrition/Amino Acids/Dextrose/ Fat Emulsion Intravenous 1,500 ml @ 62.5 mls/hr TPN CONT IV Last administered on 08/04/16 21:45; Start 08/04/16 at 22:00; Stop 08/06/16 at 08:48; Status DC Sodium Chloride 1,000 ml @ 1,000 mls/hr Q1H PRN IV hypotension; Start 08/04/16 at 12:00; Stop 08/04/16 at 17:59; Status DC Sodium Chloride (Iv Sodium Chloride 0.9% 1000ml Bag) 1,000 ml @ 400 mls/hr Q2H30M PRN IV PATENCY; Start 08/04/16 at 12:00; Stop 08/04/16 at 23:59; Status DC Info 1 each 1 each PRN DAILY PRN MC SEE COMMENTS; Start 08/04/16 at 16:30; Status UNV Levofloxacin/ Dextrose 100 ml @ 100 mls/hr 1X ONCE IV Last administered on 14:27; Start 08/05/16 at 14:00; Stop 08/05/16 at 14:59; Status DC Daptomycin/Sodium Chloride (Cubicin/Iv Sodium Chloride 0.9% 50ml) 50 ml @ 100 mls/hr 1X ONCE IV Last administered on 08/05/16 14:27; Start 08/05/16 at 14: 00; Stop 08/05/16 at 14:29; Status DC Heparin Sodium (Porcine) 10,000 unit STK-MED ONCE .ROUTE ; Start 08/05/16 at 09: 35; Stop 08/05/16 at 09:36; Status DC Lidocaine/Sodium Bicarbonate 20 ml 20 ml STK-MED ONCE IJ ; Start 08/05/16 at 09: 36; Stop 08/05/16 at 09:37; Status DC Heparin Sodium/ Sodium Chloride 500 ml @ As Directed STK-MED ONCE .ROUTE ; Start 08/05/16 at 09:36; Stop 08/05/16 at 09:37; Status DC Lidocaine/Sodium Bicarbonate (Buffered Lidocaine 1%) 2 ml 1X ONCE IJ Last administered on 08/05/16 10:04; Start 08/05/16 at 10:00; Stop 08/05/16 at 10:02 ; Status DC Heparin Sodium/ Sodium Chloride 60 unit 1X ONCE IV Last administered on 10:04; Start 08/05/16 at 10:00; Stop 08/05/16 at 10:02; Status DC Heparin Sodium (Porcine) 2,800 unit 1X ONCE INT CAT Last administered on 10:04; Start 08/05/16 at 10:00; Stop 08/05/16 at 10:02; Status DC Info (PHARMACY MONITORING -- do not chart) 1 each PRN DAILY PRN MC SEE COMMENTS ; Start 08/05/16 at 10:30; Stop 08/05/16 at 10:30; Status DC Info (PHARMACY MONITORING -- do not chart) 1 each PRN DAILY PRN MC SEE COMMENTS ; Start 08/05/16 at 10:30; Stop 08/05/16 at 10:30; Status DC Hydrocortisone Sodium Succinate 50 mg 50 mg BID IV Last administered on 07:49; Start 08/05/16 at 21:00; Stop 08/07/16 at 10:23; Status DC Sodium Chloride 160 meq/Sodium Acetate 60 meq/ Potassium Chloride 15 meq/ Potassium Acetate 30 meq/Magnesium Sulfate 25 meq/ Multivitamins/ Minerals 10 ml / Chromium/Copper/ Manganese/Seleni/ Zn 1 ml/Total Parenteral Nutrition/Amino Acids/Dextrose/ Fat Emulsion Intravenous 1,500 ml @ 62.5 mls/hr TPN CONT IV Last administered on 08/05/16 22:04; Start 08/05/16 at 22:00; Stop 08/06/16 at 21:59; Status DC Daptomycin 500 mg/ Sodium Chloride 50 ml @ 100 mls/hr Q24H IV Last administered on 08/09/16 13:44; Start 08/06/16 at 14:00 Sodium Chloride (Iv Sodium Chloride 0.9% 1000ml Bag) 1,000 ml @ 1,000 mls/hr Q1H PRN IV hypotension; Start 08/06/16 at 08:21; Stop 08/06/16 at 14:20; Status DC Diphenhydramine HCl (Benadryl) 25 mg 1X PRN PRN IV ITCHING; Start 08/06/16 at 08:30; Stop 08/07/16 at 08:29; Status DC Diphenhydramine HCl (Benadryl) 25 mg 1X PRN PRN IV ITCHING; Start 08/06/16 at 08:30; Stop 08/07/16 at 08:29; Status DC Sodium Chloride (Normal Saline Flush) 10 ml 1X PRN PRN IV AP catheter pack; Start 08/06/16 at 08:30; Stop 08/07/16 at 08:29; Status DC Sodium Chloride 10 ml 10 ml 1X PRN PRN IV RN BURN catheter pack; Start 08/06/16 at 08:30; Stop 08/07/16 at 08:29; Status DC Sodium Chloride (Iv Sodium Chloride 0.9% 1000ml Bag) 1,000 ml @ 400 mls/hr Q2H30M PRN IV PATENCY; Start 08/06/16 at 08:21; Stop 08/06/16 at 20:20; Status DC Info 1 each 1 each PRN DAILY PRN MC SEE COMMENTS; Start 08/06/16 at 08:30; Status UNV Albumin Human 200 ml @ 200 mls/hr 1X STAT IV Last administered on 08/06/16 10:09; Start 08/06/16 at 09:52; Stop 08/06/16 at 10:51; Status DC Sodium Chloride/ Sodium Acetate/ Potassium Chloride/ Potassium Acetate/ Magnesium Sulfate/ Multivitamins/ Minerals/Chromium/ Copper/Manganese/ Seleni/Zn /Total Parenteral Nutrition/Amino Acids/Dextrose/ Fat Emulsion Intravenous ( Sodium Chloride/ Infuvite Adult/ Multitrace-5 Conc/ Tpn - Tpn Flu... 1,500 ml @ 62.5 mls/hr TPN CONT IV Last administered on 08/06/16 21:57; Start at 22:00; Stop 08/07/16 at 21:59; Status DC Darbepoetin Asrbjit 60 mcg 60 mcg WEEKLYHS SQ ; Start 08/07/16 at 21:00; Status UNV Potassium Chloride (KCl Premix 20meq) 50 ml @ 50 mls/hr Q1H IV Last administered on 08/07/16 10:46; Start 08/07/16 at 08:00; Stop 08/07/16 at 09:59 ; Status DC Hydrocortisone Sodium Succinate 25 mg 25 mg BID IV ; Start 08/07/16 at 21:00; Stop 08/07/16 at 21:00; Status DC Sodium Chloride (Iv Sodium Chloride 0.9% 1000ml Bag) 1,000 ml @ 1,000 mls/hr Q1H PRN IV hypotension; Start 08/07/16 at 12:08; Stop 08/07/16 at 18:07; Status DC Diphenhydramine HCl (Benadryl) 25 mg 1X PRN PRN IV ITCHING; Start 08/07/16 at 12:15; Stop 08/08/16 at 12:14; Status DC Diphenhydramine HCl (Benadryl) 25 mg 1X PRN PRN IV ITCHING; Start 08/07/16 at 12:15; Stop 08/08/16 at 12:14; Status DC Sodium Chloride (Normal Saline Flush) 10 ml 1X PRN PRN IV AP catheter pack; Start 08/07/16 at 12:15; Stop 08/08/16 at 12:14; Status DC Sodium Chloride (Normal Saline Flush) 10 ml 1X PRN PRN IV RN BURN catheter pack; Start 08/07/16 at 12:15; Stop 08/08/16 at 12:14; Status DC Info (PHARMACY MONITORING -- do not chart) 1 each PRN DAILY PRN MC SEE COMMENTS ; Start 08/07/16 at 12:15; Status UNV Info 1 each 1 each PRN DAILY PRN MC SEE COMMENTS; Start 08/07/16 at 12:15; Status UNV Sodium Chloride 160 meq/Sodium Acetate 60 meq/ Potassium Chloride 55 meq/ Potassium Acetate 30 meq/Magnesium Sulfate 25 meq/ Multivitamins/ Minerals 10 ml / Chromium/Copper/ Manganese/Seleni/ Zn 1 ml/Total Parenteral Nutrition/Amino Acids/Dextrose/ Fat Emulsion Intravenous 1,500 ml @ 62.5 mls/hr TPN CONT IV Last administered on 08/07/16 21:41; Start 08/07/16 at 22:00; Stop 08/08/16 at 21:59; Status DC Potassium Chloride (KCl Premix 20meq) 50 ml @ 50 mls/hr 1X ONCE IV Last administered on 08/08/16 09:04; Start 08/08/16 at 10:00; Stop 08/08/16 at 10:59 ; Status DC Fentanyl Citrate 25 mcg 25 mcg PRN Q4HRS PRN IV PAIN Last administered on 15:04; Start 08/08/16 at 11:00 Potassium Chloride 50 ml @ 50 mls/hr 1X ONCE IV Last administered on 15:33; Start 08/08/16 at 11:15; Stop 08/08/16 at 12:14; Status DC Sodium Chloride 140 meq/Sodium Acetate 60 meq/ Potassium Chloride 70 meq/ Potassium Acetate 30 meq/Magnesium Sulfate 25 meq/ Multivitamins/ Minerals 10 ml / Chromium/Copper/ Manganese/Seleni/ Zn 1 ml/Total Parenteral Nutrition/Amino Acids/Dextrose/ Fat Emulsion Intravenous 1,500 ml @ 62.5 mls/hr TPN CONT IV Last administered on 08/08/16 21:42; Start 08/08/16 at 22:00; Stop 08/09/16 at 11:30; Status DC Tigecycline 50 mg/ Sodium Chloride 50 ml @ 100 mls/hr Q12HR IV ; Start at 09:42; Stop 08/09/16 at 10:03; Status DC Dextrose 1,000 ml @ 80 mls/hr [id number] IV ; Start 08/09/16 at 11:45; Stop at 11:57; Status DC Dextrose/Sodium Chloride 1,000 ml @ 50 mls/hr Q20H IV Last administered on t 12:22; Start 08/09/16 at 12:00 Sodium Chloride/ Sodium Acetate/ Potassium Chloride/ Potassium Acetate/ Magnesium Sulfate/ Multivitamins/ Minerals/Chromium/ Copper/Manganese/ Seleni/Zn /Total Parenteral Nutrition/Amino Acids/Dextrose/ Fat Emulsion Intravenous ( Sodium Chloride/ Infuvite Adult/ Multitrace-5 Conc/ Tpn - Tpn Flu... 1,512 ml @ 63 mls/hr TPN CONT IV ; Start 08/09/16 at 22:00; Stop 08/10/16 at 21:59 Active Scripts Active Dilaudid (Hydromorphone Hcl) 4 Mg Tablet 4 Mg PO Q6HRS Phenazopyridine Hcl 200 Mg Tablet 200 Mg PO PRN TID PRN FENTANYL 50mcg/hr (Fentanyl) 1 Each Patch.td72 1 Patch TD Q3DAYS Anaspaz (Hyoscyamine Sulfate) 0.125 Mg Tab.rapdis 0.125 Mg PO Q6HRS PRN Cefpodoxime Proxetil 200 Mg Tablet 200 Mg PO BID Sertraline Hcl 50 Mg Tablet 100 Mg PO DAILY 30 Days Protonix (Pantoprazole Sodium) 40 Mg Tablet.dr 1 Tab PO DAILY Zinc Oxide 56.7 Gm Oint...g. 1 Sang TP BID Lidocaine 35.44 Gm Oint...g. 1 Sang TP BID Ondansetron Odt (Ondansetron) 4 Mg Tab.rapdis 8 Mg PO PRN Q8HRS PRN Gas-X (Simethicone) 80 Mg Tab.chew 80 Mg PO PRN QID PRN Reported Lorazepam 0.5 Mg Tablet 0.5 Mg PO PRN BID PRN Vitals/I & O Vital Sign - Last 24 Hours 08/09/16 08/09/16 08/09/16 08/09/16 11:00 11:38 12:00 12:00 Temp 97.8 97.8 Pulse 110 108 Resp 20 14 B/P 154/78 133/84 Pulse Ox 100 100 100 O2 Delivery Ventilator Ventilator Mechanical Ventilator Ventilator 08/09/16 08/09/16 08/09/16 08/09/16 13:00 14:00 15:00 15:04 Temp 97.8 97.8 Pulse 94 99 95 Resp 15 16 16 17 B/P 158/89 169/82 169/87 Pulse Ox 100 100 100 100 O2 Delivery Ventilator Ventilator Ventilator Ventilator 08/09/16 08/09/16 08/09/16 08/09/16 15:34 16:00 16:00 16:22 Temp 97.6 97.6 Pulse 96 Resp 17 16 B/P 173/76 Pulse Ox 100 100 100 O2 Delivery Ventilator Mechanical Ventilator Ventilator Ventilator 08/09/16 08/09/16 08/09/16 08/09/16 17:00 18:00 19:00 20:00 Pulse 96 113 114 Resp 14 14 16 B/P 145/85 170/80 143/80 Pulse Ox 100 100 100 O2 Delivery Ventilator Ventilator Ventilator Mechanical Ventilator 08/09/16 08/09/16 08/09/16 08/09/16 20:00 20:40 21:00 22:00 Temp 98.1 98.1 Pulse 111 110 108 Resp 16 14 15 B/P 162/82 154/88 124/73 Pulse Ox 100 100 100 100 O2 Delivery Ventilator Ventilator Ventilator Ventilator 08/09/16 08/09/16 08/10/16 08/10/16 23:00 23:46 00:00 00:00 Temp 97.3 97.3 Pulse 94 94 Resp 14 15 B/P 123/68 138/76 Pulse Ox 100 100 100 O2 Delivery Ventilator Ventilator Mechanical Ventilator Ventilator 08/10/16 08/10/16 08/10/16 08/10/16 01:00 01:31 02:00 03:00 Pulse 107 98 104 Resp 15 15 14 B/P 157/90 158/92 132/78 Pulse Ox 100 100 100 100 O2 Delivery Ventilator Ventilator Ventilator Ventilator 08/10/16 08/10/16 08/10/16 08/10/16 03:35 04:00 04:00 05:00 Temp 98.2 98.2 Pulse 99 98 Resp 14 14 B/P 154/81 148/85 Pulse Ox 100 100 100 O2 Delivery Ventilator Ventilator Mechanical Ventilator Ventilator 08/10/16 08/10/16 08/10/16 08/10/16 05:49 06:00 08:10 08:30 Pulse 88 Resp 14 B/P 154/76 Pulse Ox 100 100 100 O2 Delivery Ventilator Ventilator Ventilator Ventilator Intake and Output 08/09/16 08/09/16 08/10/16 15:00 23:00 07:00 Intake Total 393 ml 413 ml 887 ml Output Total 780 ml 1340 ml 590 ml Balance -387 ml -927 ml 297 ml BENITA LUTZ MD Aug 10, 2016 10:15
[2016-08-10] MEDS ORDERED: POTASSIUM CHLORIDE 20MEQ 50 ML IV ONE (10:30)
[2016-08-10 10:33] LABS: HCO3 ABG 31 mmol/L (21-28); PCO2 ABG 40 mmHg (35-46); PH ABG 7.51 (7.35-7.45); PO2 ABG 161 mmHg (65-108); SAT O2 ABG 99 % (92-99)
[2016-08-10 10:37] LABS: FIO2 ABG 35
[2016-08-10] MEDS: [UNRECOGNIZED DRUG - OTHER] IV SCH ×10 (10:44)
[2016-08-10] MEDS: TOTAL PARENTERAL NUTRITION IV SCH ×10 (10:44)
[2016-08-10] MEDS: AMINO ACID IV SCH ×10 (10:44)
[2016-08-10] MEDS: DEXTROSE 70% IV SCH ×10 (10:44)
--- NOTE | 2016-08-10 10:57 | PDOC ---
Renal-Progress Notes Subjective Notes Notes INTUBATED History of Present Illness Hx of present illness NO CHANGE Vitals Vitals Vital Signs Date Time Temp Pulse Resp B/P Pulse Ox O2 Delivery O2 Flow Rate FiO2 08/10/16 08:30 Ventilator 08/10/16 08:10 100 08/10/16 06:00 88 14 154/76 08/10/16 04:00 98.2 98.2 Weight Weight [ ] I.O. Intake and Output Intake and Output 08/10/16 06:59 Intake Total 1693 ml Output Total 2830 ml Balance -1137 ml IV Total 806 ml Other 887 ml Output Urine Total 1515 ml Drainage Total 1315 ml Labs Labs Laboratory Tests Test 08/09/16 11:04 08/09/16 11:30 08/09/16 16:20 08/09/16 16:30 Glucose (Fingerstick) 142mg/dL (70-99) Prothrombin Time 15.3SEC (11.7-14.0) Prothromb Time International Ratio 1.3 (0.8-1.1) Activated Partial Thromboplast Time 37SEC (24-38) Fibrinogen 231mg/dL (200-440) O2 Saturation 98% (92-99) Arterial Blood pH 7.55 (7.35-7.45) Arterial Blood pCO2 at Patient Temp 33mmHg (35-46) Arterial Blood pO2 at Patient Temp 119mmHg (65-108) Arterial Blood HCO3 28mmol/L (21-28) Arterial Blood Base Excess 6mmol/L (-3-3) FiO2 35 Sodium Level 153mmol/L (136-145) Potassium Level 3.8mmol/L (3.5-5.1) Chloride Level 112mmol/L (98-107) Carbon Dioxide Level 34mmol/L (21-32) Anion Gap 7 (6-14) Blood Urea Nitrogen 83mg/dL (7-20) Creatinine 1.2mg/dL (0.6-1.0) Estimated GFR (Cockcroft-Gault) 55.3 Glucose Level 153mg/dL (70-99) Calcium Level 9.2mg/dL (8.5-10.1) Test 08/10/16 00:02 08/10/16 05:45 08/10/16 05:47 2/27/17 10:20 Glucose (Fingerstick) 132mg/dL (70-99) 109mg/dL (70-99) White Blood Count 7.6x10^3/uL (4.0-11.0) Red Blood Count 3.22x10^6/uL (3.50-5.40) Hemoglobin 8.3g/dL (12.0-15.5) Hematocrit 26.5% (36.0-47.0) Mean Corpuscular Volume 82fL (79-100) Mean Corpuscular Hemoglobin 26pg (25-35) Mean Corpuscular Hemoglobin Concent 31g/dL (31-37) Red Cell Distribution Width 21.8% (11.5-14.5) Platelet Count 71x10^3/uL (140-400) Neutrophils (%) (Auto) 74% (31-73) Lymphocytes (%) (Auto) 15% (24-48) Monocytes (%) (Auto) 9% (0-9) Eosinophils (%) (Auto) 1% (0-3) Basophils (%) (Auto) 1% (0-3) Neutrophils # (Auto) 5.6x10^3uL (1.8-7.7) Lymphocytes # (Auto) 1.1x10^3/uL (1.0-4.8) Monocytes # (Auto) 0.7x10^3/uL (0.0-1.1) Eosinophils # (Auto) 0.1x10^3/uL (0.0-0.7) Basophils # (Auto) 0.1x10^3/uL (0.0-0.2) Sodium Level 154mmol/L (136-145) Potassium Level 3.4mmol/L (3.5-5.1) Chloride Level 113mmol/L (98-107) Carbon Dioxide Level 33mmol/L (21-32) Anion Gap 8 (6-14) Blood Urea Nitrogen 78mg/dL (7-20) Creatinine 1.0mg/dL (0.6-1.0) Estimated GFR (Cockcroft-Gault) 68.2 Glucose Level 117mg/dL (70-99) Calcium Level 9.4mg/dL (8.5-10.1) Phosphorus Level 4.2mg/dL (2.6-4.7) Magnesium Level 2.4mg/dL (1.8-2.4) O2 Saturation 99% (92-99) Arterial Blood pH 7.51 (7.35-7.45) Arterial Blood pCO2 at Patient Temp 40mmHg (35-46) Arterial Blood pO2 at Patient Temp 161mmHg (65-108) Arterial Blood HCO3 31mmol/L (21-28) Arterial Blood Base Excess 7mmol/L (-3-3) FiO2 35 Micro Micro Microbiology 08/01/16 Blood Culture - Final, Complete NO GROWTH AFTER 5 DAYS 07/15/16 Urine Culture - Final, Complete 07/15/16 Urine Culture Result 1 (ROYA) - Final, Complete 07/15/16 Urine Culture Result 2 (ROYA) - Final, Complete 07/15/16 Antimicrobic Susceptibility - Final, Complete 07/29/16 Aerobic Culture - Final, Complete 07/29/16 Aerobic Culture Result 1 (ROYA) - Final, Complete Review of Systems Constitutional: yes: no symptom reported Physical Exam General Appearance: no apparent distress Skin: warm Respiratory: decreased breath sounds Heart: S1S2, RRR Abdomen: soft, bowel sounds present Genitourinary: bladder flat Neurology: alert Musculoskeletal: Osteoarthritis Assessment Assessment IMP RESP FAILURE MALNUTRITION HYPERNATREMIA JULIO C-IMPROVING SEPSIS EC FISTULA-TPN DEPENDENT PLAN ANTIBIOTICS VENT SUPPORT RESUME TPN D5W CARL CAM MD Aug 10, 2016 10:57
--- NOTE | 2016-08-10 11:26 | PDOC ---
PULMONARY PROGRESS NOTES Subjective more awake today on CPAP/ still weak Vitals Vital Signs Date Time Temp Pulse Resp B/P Pulse Ox O2 Delivery O2 Flow Rate FiO2 08/10/16 08:30 Ventilator 08/10/16 08:10 100 08/10/16 06:00 88 14 154/76 08/10/16 04:00 98.2 98.2 General: Alert, No acute distress HEENT: Other (nc at perrl, nose clear, orally intuvated. ) Lungs: Other (decrease bs) Cardiovascular: S1, S2 Abdomen: Soft, Non-tender, Other Neuro Exam: Alert Skin: Warm Labs Laboratory Tests Test 08/08/16 11:40 08/08/16 13:15 08/08/16 18:42 08/09/16 00:18 Glucose (Fingerstick) 134mg/dL (70-99) 126mg/dL (70-99) 137mg/dL (70-99) Potassium Level 3.2mmol/L (3.5-5.1) Test 08/09/16 05:35 08/09/16 05:42 08/09/16 11:04 08/09/16 11:30 White Blood Count 9.2x10^3/uL (4.0-11.0) Red Blood Count 3.31x10^6/uL (3.50-5.40) Hemoglobin 8.5g/dL (12.0-15.5) Hematocrit 27.1% (36.0-47.0) Mean Corpuscular Volume 82fL (79-100) Mean Corpuscular Hemoglobin 26pg (25-35) Mean Corpuscular Hemoglobin Concent 31g/dL (31-37) Red Cell Distribution Width 21.1% (11.5-14.5) Platelet Count 68x10^3/uL (140-400) Neutrophils (%) (Auto) 72% (31-73) Lymphocytes (%) (Auto) 17% (24-48) Monocytes (%) (Auto) 7% (0-9) Eosinophils (%) (Auto) 3% (0-3) Basophils (%) (Auto) 1% (0-3) Neutrophils # (Auto) 6.5x10^3uL (1.8-7.7) Lymphocytes # (Auto) 1.6x10^3/uL (1.0-4.8) Monocytes # (Auto) 0.7x10^3/uL (0.0-1.1) Eosinophils # (Auto) 0.2x10^3/uL (0.0-0.7) Basophils # (Auto) 0.1x10^3/uL (0.0-0.2) Platelet Estimate Decreased (ADEQUATE) Giant Platelets Present Hypochromasia Present Anisocytosis Mod Sodium Level 151mmol/L (136-145) Potassium Level 3.7mmol/L (3.5-5.1) Chloride Level 110mmol/L (98-107) Carbon Dioxide Level 36mmol/L (21-32) Anion Gap 5 (6-14) Blood Urea Nitrogen 76mg/dL (7-20) Creatinine 1.1mg/dL (0.6-1.0) Estimated GFR (Cockcroft-Gault) 61.1 Glucose Level 110mg/dL (70-99) Lactic Acid Level 0.9mmol/L (0.4-2.0) Calcium Level 9.0mg/dL (8.5-10.1) Magnesium Level 2.4mg/dL (1.8-2.4) Vancomycin Level Trough < 0.8mcg/mL (10.0-20.0) Vancomycin Last Dose Date 08/08/16 Vancomycin Last Dose Time 1600 Glucose (Fingerstick) 113mg/dL (70-99) 142mg/dL (70-99) Prothrombin Time 15.3SEC (11.7-14.0) Prothromb Time International Ratio 1.3 (0.8-1.1) Activated Partial Thromboplast Time 37SEC (24-38) Fibrinogen 231mg/dL (200-440) Test 08/09/16 16:20 08/09/16 16:30 08/10/16 00:02 08/10/16 05:45 O2 Saturation 98% (92-99) Arterial Blood pH 7.55 (7.35-7.45) Arterial Blood pCO2 at Patient Temp 33mmHg (35-46) Arterial Blood pO2 at Patient Temp 119mmHg (65-108) Arterial Blood HCO3 28mmol/L (21-28) Arterial Blood Base Excess 6mmol/L (-3-3) FiO2 35 Sodium Level 153mmol/L (136-145) 154mmol/L (136-145) Potassium Level 3.8mmol/L (3.5-5.1) 3.4mmol/L (3.5-5.1) Chloride Level 112mmol/L (98-107) 113mmol/L (98-107) Carbon Dioxide Level 34mmol/L (21-32) 33mmol/L (21-32) Anion Gap 7 (6-14) 8 (6-14) Blood Urea Nitrogen 83mg/dL (7-20) 78mg/dL (7-20) Creatinine 1.2mg/dL (0.6-1.0) 1.0mg/dL (0.6-1.0) Estimated GFR (Cockcroft-Gault) 55.3 68.2 Glucose Level 153mg/dL (70-99) 117mg/dL (70-99) Calcium Level 9.2mg/dL (8.5-10.1) 9.4mg/dL (8.5-10.1) Glucose (Fingerstick) 132mg/dL (70-99) White Blood Count 7.6x10^3/uL (4.0-11.0) Red Blood Count 3.22x10^6/uL (3.50-5.40) Hemoglobin 8.3g/dL (12.0-15.5) Hematocrit 26.5% (36.0-47.0) Mean Corpuscular Volume 82fL (79-100) Mean Corpuscular Hemoglobin 26pg (25-35) Mean Corpuscular Hemoglobin Concent 31g/dL (31-37) Red Cell Distribution Width 21.8% (11.5-14.5) Platelet Count 71x10^3/uL (140-400) Neutrophils (%) (Auto) 74% (31-73) Lymphocytes (%) (Auto) 15% (24-48) Monocytes (%) (Auto) 9% (0-9) Eosinophils (%) (Auto) 1% (0-3) Basophils (%) (Auto) 1% (0-3) Neutrophils # (Auto) 5.6x10^3uL (1.8-7.7) Lymphocytes # (Auto) 1.1x10^3/uL (1.0-4.8) Monocytes # (Auto) 0.7x10^3/uL (0.0-1.1) Eosinophils # (Auto) 0.1x10^3/uL (0.0-0.7) Basophils # (Auto) 0.1x10^3/uL (0.0-0.2) Phosphorus Level 4.2mg/dL (2.6-4.7) Magnesium Level 2.4mg/dL (1.8-2.4) Test 08/10/16 05:47 08/10/16 10:20 Glucose (Fingerstick) 109mg/dL (70-99) O2 Saturation 99% (92-99) Arterial Blood pH 7.51 (7.35-7.45) Arterial Blood pCO2 at Patient Temp 40mmHg (35-46) Arterial Blood pO2 at Patient Temp 161mmHg (65-108) Arterial Blood HCO3 31mmol/L (21-28) Arterial Blood Base Excess 7mmol/L (-3-3) FiO2 35 Laboratory Tests Test 08/09/16 11:30 08/09/16 16:20 08/09/16 16:30 08/10/16 00:02 Prothrombin Time 15.3SEC (11.7-14.0) Prothromb Time International Ratio 1.3 (0.8-1.1) Activated Partial Thromboplast Time 37SEC (24-38) Fibrinogen 231mg/dL (200-440) O2 Saturation 98% (92-99) Arterial Blood pH 7.55 (7.35-7.45) Arterial Blood pCO2 at Patient Temp 33mmHg (35-46) Arterial Blood pO2 at Patient Temp 119mmHg (65-108) Arterial Blood HCO3 28mmol/L (21-28) Arterial Blood Base Excess 6mmol/L (-3-3) FiO2 35 Sodium Level 153mmol/L (136-145) Potassium Level 3.8mmol/L (3.5-5.1) Chloride Level 112mmol/L (98-107) Carbon Dioxide Level 34mmol/L (21-32) Anion Gap 7 (6-14) Blood Urea Nitrogen 83mg/dL (7-20) Creatinine 1.2mg/dL (0.6-1.0) Estimated GFR (Cockcroft-Gault) 55.3 Glucose Level 153mg/dL (70-99) Calcium Level 9.2mg/dL (8.5-10.1) Glucose (Fingerstick) 132mg/dL (70-99) Test 08/10/16 05:45 08/10/16 05:47 08/10/16 10:20 White Blood Count 7.6x10^3/uL (4.0-11.0) Red Blood Count 3.22x10^6/uL (3.50-5.40) Hemoglobin 8.3g/dL (12.0-15.5) Hematocrit 26.5% (36.0-47.0) Mean Corpuscular Volume 82fL (79-100) Mean Corpuscular Hemoglobin 26pg (25-35) Mean Corpuscular Hemoglobin Concent 31g/dL (31-37) Red Cell Distribution Width 21.8% (11.5-14.5) Platelet Count 71x10^3/uL (140-400) Neutrophils (%) (Auto) 74% (31-73) Lymphocytes (%) (Auto) 15% (24-48) Monocytes (%) (Auto) 9% (0-9) Eosinophils (%) (Auto) 1% (0-3) Basophils (%) (Auto) 1% (0-3) Neutrophils # (Auto) 5.6x10^3uL (1.8-7.7) Lymphocytes # (Auto) 1.1x10^3/uL (1.0-4.8) Monocytes # (Auto) 0.7x10^3/uL (0.0-1.1) Eosinophils # (Auto) 0.1x10^3/uL (0.0-0.7) Basophils # (Auto) 0.1x10^3/uL (0.0-0.2) Sodium Level 154mmol/L (136-145) Potassium Level 3.4mmol/L (3.5-5.1) Chloride Level 113mmol/L (98-107) Carbon Dioxide Level 33mmol/L (21-32) Anion Gap 8 (6-14) Blood Urea Nitrogen 78mg/dL (7-20) Creatinine 1.0mg/dL (0.6-1.0) Estimated GFR (Cockcroft-Gault) 68.2 Glucose Level 117mg/dL (70-99) Calcium Level 9.4mg/dL (8.5-10.1) Phosphorus Level 4.2mg/dL (2.6-4.7) Magnesium Level 2.4mg/dL (1.8-2.4) Glucose (Fingerstick) 109mg/dL (70-99) O2 Saturation 99% (92-99) Arterial Blood pH 7.51 (7.35-7.45) Arterial Blood pCO2 at Patient Temp 40mmHg (35-46) Arterial Blood pO2 at Patient Temp 161mmHg (65-108) Arterial Blood HCO3 31mmol/L (21-28) Arterial Blood Base Excess 7mmol/L (-3-3) FiO2 35 Medications Active Scripts Medications Dose Route/Sig Days Date Category Dilaudid (Hydromorphone Hcl) 4 Mg Tablet 4 Mg PO Q6HRS 06/29/16 Rx Phenazopyridine Hcl 200 Mg Tablet 200 Mg PO PRN TID PRN 06/29/16 Rx FENTANYL 50mcg/hr (Fentanyl) 1 Each Patch.td72 1 Patch TD Q3DAYS 06/29/16 Rx Anaspaz (Hyoscyamine Sulfate) 0.125 Mg Tab.rapdis 0.125 Mg PO Q6HRS PRN 06/29/16 Rx Cefpodoxime Proxetil 200 Mg Tablet 200 Mg PO BID 06/29/16 Rx Sertraline Hcl 50 Mg Tablet 100 Mg PO DAILY 30 05/12/16 Rx Protonix (Pantoprazole Sodium) 40 Mg Tablet.dr 1 Tab PO DAILY 12/27/15 Rx Zinc Oxide 56.7 Gm Oint...g. 1 Sang TP BID 12/18/15 Rx Lidocaine 35.44 Gm Oint...g. 1 Sang TP BID 12/18/15 Rx Ondansetron Odt (Ondansetron) 4 Mg Tab.rapdis 8 Mg PO PRN Q8HRS PRN 07/03/15 Rx Gas-X (Simethicone) 80 Mg Tab.chew 80 Mg PO PRN QID PRN 09/30/14 Rx Lorazepam 0.5 Mg Tablet 0.5 Mg PO PRN BID PRN 11/08/13 Reported Comments CXR 08/07 RESOLVED CHF Impression . 1. Acute respiratory failure, multifactorial. 2. Septic shock. off pressors 3. Bilateral pulmonary infiltrates compatible with pulmonary edema, /doubt pneumonia. resolved 4. Fungemia./Urine MDR Enterobacter and Amp res Enterococcus 2 5. Chronic enterocutaneous fistula. 6. Metabolic toxic encephalopathy. 7. Acute renal failure. 8. Wmycefeh-de-tbohlg protein malnutrition, present upon admission. 9. Metabolic acidosis. resolved 10.Thrombocytopenia, sepsis induced 11. Medication induced encephalopathy Plan . will extubate today use prn BIPAP today will need aggressive PT abx per ID off solucortef, bronchodilator monitor Plt cont abx, antifungal per ID protonix, scds for prophylaxis d/w RN/RT ROSAMARIA GUNDERSON MD Aug 10, 2016 11:26
[2016-08-10] MEDS: TPN PER PHARMACY MC PRN (14:40)
[2016-08-10] MEDS: NORMAL SALINE IV SCH (15:12)
[2016-08-10] MEDS: DAPTOMYCIN IV SCH (15:12)
[2016-08-10] MEDS: IV DEXTROSE 5% 1,000 ML IV SCH (15:13)
[2016-08-10 15:17] LABS: HCO3 ABG 26 mmol/L (21-28); PCO2 ABG 35 mmHg (35-46); PH ABG 7.49 (7.35-7.45); PO2 ABG 121 mmHg (65-108); SAT O2 ABG 98 % (92-99)
[2016-08-10 15:19] LABS: FIO2 ABG 30
[2016-08-10] MEDS ORDERED: AMINO ACID IV SCH ×8 (22:00)
[2016-08-10] MEDS ORDERED: [UNRECOGNIZED DRUG - OTHER] IV SCH ×8 (22:00)
[2016-08-10] MEDS ORDERED: TOTAL PARENTERAL NUTRITION IV SCH ×8 (22:00)
[2016-08-10] MEDS ORDERED: DEXTROSE 70% IV SCH ×8 (22:00)
[2016-08-11] VITALS (24 sets, daily range): BP systolic 86–167; BP diastolic 45–88
[2016-08-11] MEDS: MICAFUNGIN 100 MG in IV DEXTROSE 5% 100 ML IV SCH (00:56)
[2016-08-11 04:42] LABS: FIO2 ABG 28; HCO3 ABG 29 mmol/L (21-28); PCO2 ABG 39 mmHg (35-46); PH ABG 7.48 (7.35-7.45); PO2 ABG 161 mmHg (65-108); SAT O2 ABG 99 % (92-99)
[2016-08-11] MEDS: INSULIN ASPART 300 UNITS/3 ML INSULN.PEN SQ SCH ×4 (06:00→18:13)
[2016-08-11 06:02] LABS: BASO % 1 % (0-3); EOS % 3 % (0-3); HEMATOCRIT 23.3 % (36.0-47.0); HEMOGLOBIN 7.3 g/dL (12.0-15.5); LYMPH % 17 % (24-48); MEAN CORPUSCULAR HEMOGLOBIN 26 pg (25-35); MEAN CORPUSCULAR HGB CONC 31 g/dL (31-37); MEAN CORPUSCULAR VOLUME 85 fL (79-100); MONO % 10 % (0-9); NEUT % 69 % (31-73); PLATELET COUNT 75 x10^3/uL (140-400); RED BLOOD COUNT 2.75 x10^6/uL (3.50-5.40); RED CELL DISTRIBUTION WIDTH 23.5 % (11.5-14.5); WHITE BLOOD COUNT 5.9 x10^3/uL (4.0-11.0)
[2016-08-11 06:40] LABS: ALBUMIN 2.5 g/dL (3.4-5.0); CALCIUM 9.2 mg/dL (8.5-10.1); CREATININE 0.8 mg/dL (0.6-1.0); DIRECT BILIRUBIN 2.7 mg/dL (0.0-0.2); GFR 88.2; POTASSIUM 3.2 mmol/L (3.5-5.1); TOTAL BILIRUBIN 4.8 mg/dL (0.2-1.0); TOTAL PROTEIN 5.9 g/dL (6.4-8.2)
--- NOTE | 2016-08-11 07:30 | PDOC ---
Infectious Disease Note Subjective Subjective Mumbles but asking for water No fever ROS ROS States ok but too weak to voice much Vital Sign Vital Signs Vital Signs Date Time Temp Pulse Resp B/P Pulse Ox O2 Delivery O2 Flow Rate FiO2 08/11/16 06:07 55 14 98/51 100 Nasal Cannula 2.0 08/11/16 04:00 97.3 97.3 Physical Exam PHYSICAL EXAM GENERAL: In bed NAD, alert but weak HEENT: icterus.dry LUNGS: Clear HEART: S1S2, regular, tachy ABD: Soft, NT, BS present. Ostomy bags : [place] EXT: BUE edema improved. no cyanosis [employer]: alert and moves arms SKIN: No rash RIJ/HDC. clean Labs Lab Laboratory Tests Test 08/10/16 10:20 08/10/16 15:01 08/10/16 15:18 08/10/16 18:30 O2 Saturation 99% (92-99) 98% (92-99) Arterial Blood pH 7.51 (7.35-7.45) 7.49 (7.35-7.45) Arterial Blood pCO2 at Patient Temp 40mmHg (35-46) 35mmHg (35-46) Arterial Blood pO2 at Patient Temp 161mmHg (65-108) 121mmHg (65-108) Arterial Blood HCO3 31mmol/L (21-28) 26mmol/L (21-28) Arterial Blood Base Excess 7mmol/L (-3-3) 3mmol/L (-3-3) FiO2 35 30 Glucose (Fingerstick) 158mg/dL (70-99) 149mg/dL (70-99) Test 08/11/16 00:54 08/11/16 03:28 08/11/16 03:37 08/11/16 05:30 Glucose (Fingerstick) 138mg/dL (70-99) 119mg/dL (70-99) O2 Saturation 99% (92-99) Arterial Blood pH 7.48 (7.35-7.45) Arterial Blood pCO2 at Patient Temp 39mmHg (35-46) Arterial Blood pO2 at Patient Temp 161mmHg (65-108) Arterial Blood HCO3 29mmol/L (21-28) Arterial Blood Base Excess 5mmol/L (-3-3) FiO2 28 White Blood Count 5.9x10^3/uL (4.0-11.0) Red Blood Count 2.75x10^6/uL (3.50-5.40) Hemoglobin 7.3g/dL (12.0-15.5) Hematocrit 23.3% (36.0-47.0) Mean Corpuscular Volume 85fL (79-100) Mean Corpuscular Hemoglobin 26pg (25-35) Mean Corpuscular Hemoglobin Concent 31g/dL (31-37) Red Cell Distribution Width 23.5% (11.5-14.5) Platelet Count 75x10^3/uL (140-400) Neutrophils (%) (Auto) 69% (31-73) Lymphocytes (%) (Auto) 17% (24-48) Monocytes (%) (Auto) 10% (0-9) Eosinophils (%) (Auto) 3% (0-3) Basophils (%) (Auto) 1% (0-3) Neutrophils # (Auto) 4.1x10^3uL (1.8-7.7) Lymphocytes # (Auto) 1.0x10^3/uL (1.0-4.8) Monocytes # (Auto) 0.6x10^3/uL (0.0-1.1) Eosinophils # (Auto) 0.2x10^3/uL (0.0-0.7) Basophils # (Auto) 0.0x10^3/uL (0.0-0.2) Sodium Level 156mmol/L (136-145) Potassium Level 3.2mmol/L (3.5-5.1) Chloride Level 116mmol/L (98-107) Carbon Dioxide Level 31mmol/L (21-32) Anion Gap 9 (6-14) Blood Urea Nitrogen 51mg/dL (7-20) Creatinine 0.8mg/dL (0.6-1.0) Estimated GFR (Cockcroft-Gault) 88.2 Glucose Level 147mg/dL (70-99) Calcium Level 9.2mg/dL (8.5-10.1) Total Bilirubin 4.8mg/dL (0.2-1.0) Direct Bilirubin 2.7mg/dL (0.0-0.2) Aspartate Amino Transf (AST/SGOT) 32U/L (15-37) Alanine Aminotransferase (ALT/SGPT) 36U/L (14-59) Alkaline Phosphatase 187U/L (46-116) Creatine Kinase 35U/L (26-192) Total Protein 5.9g/dL (6.4-8.2) Albumin 2.5g/dL (3.4-5.0) Test 08/11/16 05:34 Glucose (Fingerstick) 135mg/dL (70-99) Micro BLOOD CULTURE Preliminary NO GROWTH AFTER 2 DAYS Enterobacter aerogenes 50,000-100,000 colony forming units per mL URINE CULTURE RES 2 Final Enterococcus faecium 50,000-100,000 colony forming units per mL ANTIMICROBIAL SUSCEPTIBILITY Final Comment S = Susceptible; I = Intermediate; R = Resistant P = Positive; N = Negative MICS are expressed in micrograms per mL Antibiotic RSLT#1 RSLT#2 RSLT#3 RSLT#4 Amoxicillin/Clavulanic Acid R Cefazolin R Cefepime R Ceftriaxone R Cefuroxime R Cephalothin R Ciprofloxacin R R Gentamicin S Imipenem R Levofloxacin R R Nitrofurantoin R I Penicillin R Piperacillin R Tetracycline R R Tobramycin S Trimethoprim/Sulfa S Vancomycin S Objective Assessment C Gl[place] sepsis - 07/27 - line removed and positive 07/29. OFF Levophed. Awaiting sensitivities ? DIC with elevated INR - platelets - better Acute resp failure - extubated -some infiltrates on hydrocortisone JULIO C - getting HD for fluid removal Fever and chills- better Acute Anemia - s/p PRBCs Urine Enterobacter and Amp res Enterococcus 07/15 EC fistula Enterovesicular fistula Abdominal excoriation MDR Enterobacter and enterococcus faecium in urine Plan Plan of Care continue micafungin and daptomycin (CK 35) Repeat Blood cults 08/01 NGTD ECHO neg veg, 07/30 Will need Optho eval Monitor labs. await sensitivities Critically ill ABBY MOTT MD Aug 11, 2016 07:30
[2016-08-11] MEDS: IPRATRPIUM/ALBUTEROL 0.5/2.5MG 3 ML NEBU. NEB SCH ×4 (08:49→19:22)
--- NOTE | 2016-08-11 09:14 | PDOC ---
PROGRESS NOTES Subjective Subjective Pt extubated yesterday. Sleeping getting breathing treatment at time of exam. Continues on TPN Objective Objective Vital Signs Date Time Temp Pulse Resp B/P Pulse Ox O2 Delivery O2 Flow Rate FiO2 08/11/16 08:50 100 Nasal Cannula 2.0 08/11/16 08:00 96.3 52 24 109/68 96.3 Intake and Output 08/11/16 07:00 Intake Total 2349 ml Output Total 2055 ml Balance 294 ml IV Total 2349 ml Output Urine Total 1055 ml Stool Total 350 ml Drainage Total 650 ml Physical Exam Physical Exam Cardiac exam unchanged. Lungs clear to auscultation. Generalized edema present but improving. Assessment Assessment Patients cardiac status remains unchanged. Patient is critically ill recovering from [facility] secondary to septic shock due to UTI and fungemia. Problems Medical Problems: (1) Abdominal pain Status: Acute (2) Enterocutaneous fistula Status: Acute (3) Sepsis Status: Acute (4) Urinary tract infection Status: Acute (5) UTI (urinary tract infection) Status: Acute Plan Plan of Care Agree with current plan of care, will continue to monitor closely. Comment Review of Relevant I have reviewed the following items lucila (where applicable) has been applied. Labs Laboratory Tests Test 08/09/16 11:04 08/09/16 11:30 08/09/16 16:20 08/09/16 16:30 Glucose (Fingerstick) 142mg/dL (70-99) Prothrombin Time 15.3SEC (11.7-14.0) Prothromb Time International Ratio 1.3 (0.8-1.1) Activated Partial Thromboplast Time 37SEC (24-38) Fibrinogen 231mg/dL (200-440) O2 Saturation 98% (92-99) Arterial Blood pH 7.55 (7.35-7.45) Arterial Blood pCO2 at Patient Temp 33mmHg (35-46) Arterial Blood pO2 at Patient Temp 119mmHg (65-108) Arterial Blood HCO3 28mmol/L (21-28) Arterial Blood Base Excess 6mmol/L (-3-3) FiO2 35 Sodium Level 153mmol/L (136-145) Potassium Level 3.8mmol/L (3.5-5.1) Chloride Level 112mmol/L (98-107) Carbon Dioxide Level 34mmol/L (21-32) Anion Gap 7 (6-14) Blood Urea Nitrogen 83mg/dL (7-20) Creatinine 1.2mg/dL (0.6-1.0) Estimated GFR (Cockcroft-Gault) 55.3 Glucose Level 153mg/dL (70-99) Calcium Level 9.2mg/dL (8.5-10.1) Test 08/10/16 00:02 08/10/16 05:45 08/10/16 05:47 08/10/16 10:20 Glucose (Fingerstick) 132mg/dL (70-99) 109mg/dL (70-99) White Blood Count 7.6x10^3/uL (4.0-11.0) Red Blood Count 3.22x10^6/uL (3.50-5.40) Hemoglobin 8.3g/dL (12.0-15.5) Hematocrit 26.5% (36.0-47.0) Mean Corpuscular Volume 82fL (79-100) Mean Corpuscular Hemoglobin 26pg (25-35) Mean Corpuscular Hemoglobin Concent 31g/dL (31-37) Red Cell Distribution Width 21.8% (11.5-14.5) Platelet Count 71x10^3/uL (140-400) Neutrophils (%) (Auto) 74% (31-73) Lymphocytes (%) (Auto) 15% (24-48) Monocytes (%) (Auto) 9% (0-9) Eosinophils (%) (Auto) 1% (0-3) Basophils (%) (Auto) 1% (0-3) Neutrophils # (Auto) 5.6x10^3uL (1.8-7.7) Lymphocytes # (Auto) 1.1x10^3/uL (1.0-4.8) Monocytes # (Auto) 0.7x10^3/uL (0.0-1.1) Eosinophils # (Auto) 0.1x10^3/uL (0.0-0.7) Basophils # (Auto) 0.1x10^3/uL (0.0-0.2) Sodium Level 154mmol/L (136-145) Potassium Level 3.4mmol/L (3.5-5.1) Chloride Level 113mmol/L (98-107) Carbon Dioxide Level 33mmol/L (21-32) Anion Gap 8 (6-14) Blood Urea Nitrogen 78mg/dL (7-20) Creatinine 1.0mg/dL (0.6-1.0) Estimated GFR (Cockcroft-Gault) 68.2 Glucose Level 117mg/dL (70-99) Calcium Level 9.4mg/dL (8.5-10.1) Phosphorus Level 4.2mg/dL (2.6-4.7) Magnesium Level 2.4mg/dL (1.8-2.4) O2 Saturation 99% (92-99) Arterial Blood pH 7.51 (7.35-7.45) Arterial Blood pCO2 at Patient Temp 40mmHg (35-46) Arterial Blood pO2 at Patient Temp 161mmHg (65-108) Arterial Blood HCO3 31mmol/L (21-28) Arterial Blood Base Excess 7mmol/L (-3-3) FiO2 35 Test 08/10/16 15:01 08/10/16 15:18 08/10/16 18:30 08/11/16 00:54 O2 Saturation 98% (92-99) Arterial Blood pH 7.49 (7.35-7.45) Arterial Blood pCO2 at Patient Temp 35mmHg (35-46) Arterial Blood pO2 at Patient Temp 121mmHg (65-108) Arterial Blood HCO3 26mmol/L (21-28) Arterial Blood Base Excess 3mmol/L (-3-3) FiO2 30 Glucose (Fingerstick) 158mg/dL (70-99) 149mg/dL (70-99) 138mg/dL (70-99) Test 08/11/16 03:28 08/11/16 03:37 08/11/16 05:30 08/11/16 05:34 O2 Saturation 99% (92-99) Arterial Blood pH 7.48 (7.35-7.45) Arterial Blood pCO2 at Patient Temp 39mmHg (35-46) Arterial Blood pO2 at Patient Temp 161mmHg (65-108) Arterial Blood HCO3 29mmol/L (21-28) Arterial Blood Base Excess 5mmol/L (-3-3) FiO2 28 Glucose (Fingerstick) 119mg/dL (70-99) 135mg/dL (70-99) White Blood Count 5.9x10^3/uL (4.0-11.0) Red Blood Count 2.75x10^6/uL (3.50-5.40) Hemoglobin 7.3g/dL (12.0-15.5) Hematocrit 23.3% (36.0-47.0) Mean Corpuscular Volume 85fL (79-100) Mean Corpuscular Hemoglobin 26pg (25-35) Mean Corpuscular Hemoglobin Concent 31g/dL (31-37) Red Cell Distribution Width 23.5% (11.5-14.5) Platelet Count 75x10^3/uL (140-400) Neutrophils (%) (Auto) 69% (31-73) Lymphocytes (%) (Auto) 17% (24-48) Monocytes (%) (Auto) 10% (0-9) Eosinophils (%) (Auto) 3% (0-3) Basophils (%) (Auto) 1% (0-3) Neutrophils # (Auto) 4.1x10^3uL (1.8-7.7) Lymphocytes # (Auto) 1.0x10^3/uL (1.0-4.8) Monocytes # (Auto) 0.6x10^3/uL (0.0-1.1) Eosinophils # (Auto) 0.2x10^3/uL (0.0-0.7) Basophils # (Auto) 0.0x10^3/uL (0.0-0.2) Sodium Level 156mmol/L (136-145) Potassium Level 3.2mmol/L (3.5-5.1) Chloride Level 116mmol/L (98-107) Carbon Dioxide Level 31mmol/L (21-32) Anion Gap 9 (6-14) Blood Urea Nitrogen 51mg/dL (7-20) Creatinine 0.8mg/dL (0.6-1.0) Estimated GFR (Cockcroft-Gault) 88.2 Glucose Level 147mg/dL (70-99) Calcium Level 9.2mg/dL (8.5-10.1) Total Bilirubin 4.8mg/dL (0.2-1.0) Direct Bilirubin 2.7mg/dL (0.0-0.2) Aspartate Amino Transf (AST/SGOT) 32U/L (15-37) Alanine Aminotransferase (ALT/SGPT) 36U/L (14-59) Alkaline Phosphatase 187U/L (46-116) Creatine Kinase 35U/L (26-192) Total Protein 5.9g/dL (6.4-8.2) Albumin 2.5g/dL (3.4-5.0) Laboratory Tests Test 08/10/16 10:20 08/10/16 15:01 08/10/16 15:18 08/10/16 18:30 O2 Saturation 99% (92-99) 98% (92-99) Arterial Blood pH 7.51 (7.35-7.45) 7.49 (7.35-7.45) Arterial Blood pCO2 at Patient Temp 40mmHg (35-46) 35mmHg (35-46) Arterial Blood pO2 at Patient Temp 161mmHg (65-108) 121mmHg (65-108) Arterial Blood HCO3 31mmol/L (21-28) 26mmol/L (21-28) Arterial Blood Base Excess 7mmol/L (-3-3) 3mmol/L (-3-3) FiO2 35 30 Glucose (Fingerstick) 158mg/dL (70-99) 149mg/dL (70-99) Test 08/11/16 00:54 08/11/16 03:28 08/11/16 03:37 08/11/16 05:30 Glucose (Fingerstick) 138mg/dL (70-99) 119mg/dL (70-99) O2 Saturation 99% (92-99) Arterial Blood pH 7.48 (7.35-7.45) Arterial Blood pCO2 at Patient Temp 39mmHg (35-46) Arterial Blood pO2 at Patient Temp 161mmHg (65-108) Arterial Blood HCO3 29mmol/L (21-28) Arterial Blood Base Excess 5mmol/L (-3-3) FiO2 28 White Blood Count 5.9x10^3/uL (4.0-11.0) Red Blood Count 2.75x10^6/uL (3.50-5.40) Hemoglobin 7.3g/dL (12.0-15.5) Hematocrit 23.3% (36.0-47.0) Mean Corpuscular Volume 85fL (79-100) Mean Corpuscular Hemoglobin 26pg (25-35) Mean Corpuscular Hemoglobin Concent 31g/dL (31-37) Red Cell Distribution Width 23.5% (11.5-14.5) Platelet Count 75x10^3/uL (140-400) Neutrophils (%) (Auto) 69% (31-73) Lymphocytes (%) (Auto) 17% (24-48) Monocytes (%) (Auto) 10% (0-9) Eosinophils (%) (Auto) 3% (0-3) Basophils (%) (Auto) 1% (0-3) Neutrophils # (Auto) 4.1x10^3uL (1.8-7.7) Lymphocytes # (Auto) 1.0x10^3/uL (1.0-4.8) Monocytes # (Auto) 0.6x10^3/uL (0.0-1.1) Eosinophils # (Auto) 0.2x10^3/uL (0.0-0.7) Basophils # (Auto) 0.0x10^3/uL (0.0-0.2) Sodium Level 156mmol/L (136-145) Potassium Level 3.2mmol/L (3.5-5.1) Chloride Level 116mmol/L (98-107) Carbon Dioxide Level 31mmol/L (21-32) Anion Gap 9 (6-14) Blood Urea Nitrogen 51mg/dL (7-20) Creatinine 0.8mg/dL (0.6-1.0) Estimated GFR (Cockcroft-Gault) 88.2 Glucose Level 147mg/dL (70-99) Calcium Level 9.2mg/dL (8.5-10.1) Total Bilirubin 4.8mg/dL (0.2-1.0) Direct Bilirubin 2.7mg/dL (0.0-0.2) Aspartate Amino Transf (AST/SGOT) 32U/L (15-37) Alanine Aminotransferase (ALT/SGPT) 36U/L (14-59) Alkaline Phosphatase 187U/L (46-116) Creatine Kinase 35U/L (26-192) Total Protein 5.9g/dL (6.4-8.2) Albumin 2.5g/dL (3.4-5.0) Test 2/28/17 05:34 Glucose (Fingerstick) 135mg/dL (70-99) Microbiology 08/01/16 Blood Culture - Final, Complete NO GROWTH AFTER 5 DAYS 07/15/16 Urine Culture - Final, Complete 07/15/16 Urine Culture Result 1 (ROYA) - Final, Complete 07/15/16 Urine Culture Result 2 (ROYA) - Final, Complete 07/15/16 Antimicrobic Susceptibility - Final, Complete 07/29/16 Aerobic Culture - Final, Complete 07/29/16 Aerobic Culture Result 1 (ROYA) - Final, Complete Medications Current Medications Piperacillin Sod/ Tazobactam Sod/ Sodium Chloride (Zosyn/Iv Sodium Chloride 0.9 % 100ml) 100 ml @ 200 mls/hr 1X ONCE IV Last administered on 07/15/16 22:56; Start 07/15/16 at 22:00; Stop 07/15/16 at 22:29; Status DC Fentanyl Citrate 50 mcg 50 mcg PRN Q15MIN PRN IV PAIN GREATER THAN 3/10 Last administered on 07/16/16 00:30; Start 07/15/16 at 21:45; Stop 07/16/16 at 02:00; Status DC Sodium Chloride 1,000 ml @ 1,000 mls/hr 1X ONCE IV Last administered on 21:59; Start 07/15/16 at 22:00; Stop 07/15/16 at 22:59; Status DC Sodium Chloride (Iv Sodium Chloride 0.9% 500ml Bag) 500 ml @ 500 mls/hr 1X ONCE IV Last administered on 07/15/16 22:00; Start 07/15/16 at 22:00; Stop at 22:59; Status DC Ondansetron HCl (Zofran) 4 mg PRN Q8HRS PRN IV NAUSEA/VOMITING; Start 07/15/16 at 23:30; Stop 07/16/16 at 08:52; Status DC Fentanyl Citrate 50 mcg 50 mcg PRN Q2HR PRN IV SEVERE PAIN Last administered on 07/16/16 08:10; Start 07/15/16 at 23:30; Stop 07/16/16 at 08:52; Status DC Sodium Chloride (Iv Sodium Chloride 0.9% 1000ml Bag) 1,000 ml @ 150 mls/hr Q6H40M IV Last administered on 07/15/16 02:00; Start 07/15/16 at 23:45; Stop 07/16/16 at 08:52; Status DC Acetaminophen (Tylenol) 650 mg PRN Q4HRS PRN PO FEVER; Start 07/15/16 at 23:30; Stop 07/16/16 at 23:29; Status DC Info (Do NOT chart on this placeholder) 1 each PRN DAILY PRN MC NEEDS VERIFICATION; Start 07/16/16 at 03:00; Status Cancel Acetaminophen 650 mg 650 mg PRN Q4HRS PRN PO MILD PAIN / TEMP Last administered on 07/28/16 07:42; Start 07/16/16 at 08:45; Stop 07/29/16 at 08:33 ; Status DC Piperacillin Sod/ Tazobactam Sod 3.375 gm/Sodium Chloride 50 ml @ 100 mls/hr Q6HRS IV Last administered on 07/18/16 05:50; Start 07/16/16 at 10:00; Stop 07/18 at 13:28; Status DC Linezolid (Zyvox Premix) 300 ml @ 300 mls/hr Q12HR IV Last administered on 07/18 08:34; Start 07/16/16 at 10:00; Stop 07/18/16 at 13:28; Status DC Hydromorphone HCl (Dilaudid) 2 mg PRN Q4HRS PRN IV MODERATE PAIN Last administered on 08/09/16 06:39; Start 07/16/16 at 08:45; Stop 08/09/16 at 17:35 ; Status DC Hydromorphone HCl (Dilaudid) 4 mg PRN Q4HRS PRN IV SEVERE PAIN Last administered on 07/30/16 09:23; Start 07/16/16 at 08:45; Stop 07/31/16 at 15:01 ; Status DC Pantoprazole Sodium (Protonix) 40 mg DAILYAC PO Last administered on 07/27/16 11:11; Start 07/16/16 at 09:30; Stop 07/29/16 at 08:44; Status DC Hyoscyamine (Anaspaz) 0.125 mg Q6HRS PO Last administered on 07/20/16 05:20; Start 07/16/16 at 12:00; Stop 07/20/16 at 08:58; Status DC Phenazopyridine HCl (Pyridium) 200 mg TID PO Last administered on 07/20/16 08: 25; Start 07/16/16 at 09:30; Stop 07/20/16 at 08:58; Status DC Lorazepam (Ativan) 0.5 mg PRN BID PRN PO ANXIETY / AGITATION Last administered on 07/29/16 02:16; Start 07/16/16 at 08:45; Stop 07/31/16 at 15:01; Status DC Simethicone (Gas-X) 80 mg PRN Q4HRS PRN PO GAS / BLOATING Last administered on 07/24/16 22:30; Start 07/16/16 at 08:45; Stop 07/31/16 at 15:01; Status DC Zolpidem Tartrate 5 mg 5 mg PRN QHS PRN PO INSOMNIA Last administered on 23:14; Start 07/16/16 at 08:45; Stop 07/31/16 at 15:01; Status DC Potassium Chloride/Dextrose/ Sod Cl 1,000 ml @ 80 mls/hr [id number] IV Last administered on 07/16/16 10:54; Start 07/16/16 at 09:30; Stop 07/16/16 at 21:59; Status DC Fluconazole/ Sodium Chloride (Diflucan 200mg/ 100ml Premix) 100 ml @ 100 mls/ hr Q24H IV Last administered on 07/18/16 11:43; Start 07/16/16 at 11:00; Stop at 13:28; Status DC Info 1 each 1 each PRN DAILY PRN MC SEE COMMENTS Last administered on 12:41; Start 07/16/16 at 10:00; Stop 08/01/16 at 11:24; Status DC Sodium Chloride 220 meq/Sodium Acetate 90 meq/ Potassium Chloride 50 meq/ Potassium Acetate 15 meq/Potassium Phosphate 10 mmol/ Magnesium Sulfate 50 meq/ Calcium Gluconate 6 meq/ Multivitamins/ Minerals 10 ml/ Chromium/Copper/ Manganese/Seleni/ Zn 1 ml/Total Parenteral Nutrition/Amino Acids/Dextro... 1, 920 ml @ 80 mls/hr TPN CONT IV ; Start 07/16/16 at 22:00; Stop 07/16/16 at 22:00 ; Status DC Sodium Chloride/ Sodium Acetate/ Potassium Chloride/ Potassium Acetate/ Potassium Phosphate/ Magnesium Sulfate/ Calcium Gluconate/ Multivitamins/ Minerals/Chromium/ Copper/Manganese/ Seleni/Zn/Total Parenteral Nutrition/Amino Acids/Dextrose/ Fat Emulsion Intravenous (Sodium Chlori... 1,820 ml @ 75.833 mls/ hr TPN CONT IV Last administered on 07/16/16 21:03; Start 07/16/16 at 22: 00; Stop 07/17/16 at 21:59; Status DC Ondansetron HCl (Zofran) 4 mg PRN Q6HRS PRN IV NAUSEA/VOMITING Last administered on 07/21/16 08:48; Start 07/16/16 at 17:15; Stop 07/31/16 at 15:01; Status DC Diphenhydramine HCl (Benadryl) 25 mg PRN Q6HRS PRN PO ITCHING Last administered on 07/25/16 23:38; Start 07/16/16 at 17:45; Stop 07/31/16 at 15:01 ; Status DC Lidocaine (Xylocaine) 1 sang BID TP Last administered on 08/10/16 20:35; Start 07/17/16 at 09:00 Zinc Oxide 1 sang 1 sang BID TP Last administered on 08/10/16 20:35; Start at 09:30 Sodium Chloride/ Sodium Acetate/ Potassium Chloride/ Potassium Acetate/ Potassium Phosphate/ Magnesium Sulfate/ Calcium Gluconate/ Multivitamins/ Minerals/Chromium/ Copper/Manganese/ Seleni/Zn/Total Parenteral Nutrition/Amino Acids/Dextrose/ Fat Emulsion Intravenous (Sodium Chlori... 1,920 ml @ 80 mls/ hr TPN CONT IV Last administered on 07/17/16 22:13; Start 07/17/16 at 22:00; Stop 07/18/16 at 21:59; Status DC Furosemide 40 mg 40 mg 1X ONCE IVP Last administered on 07/18/16 11:43; Start 07/18/16 at 11:00; Stop 07/18/16 at 11:07; Status DC Sodium Chloride 220 meq/Sodium Acetate 90 meq/ Potassium Chloride 50 meq/ Potassium Acetate 15 meq/Potassium Phosphate 10 mmol/ Magnesium Sulfate 50 meq/ Calcium Gluconate 3 meq/ Multivitamins/ Minerals 10 ml/ Chromium/Copper/ Manganese/Seleni/ Zn 1 ml/Total Parenteral Nutrition/Amino Acids/Dextro... 1, 920 ml @ 80 mls/hr TPN CONT IV Last administered on 07/19/16 00:03; Start 07/18/16 at 22:00; Stop 07/19/16 at 21:59; Status DC Meropenem 1 gm/ Sodium Chloride 100 ml @ 200 mls/hr Q8HRS IV Last administered on 07/20/16 05:21; Start 07/18/16 at 14:00; Stop 07/20/16 at 11:25; Status DC Micafungin Sodium 100 mg/Dextrose 100 ml @ 100 mls/hr Q24H IV Last administered on 07/19/16 15:05; Start 07/18/16 at 14:00; Stop 07/20/16 at 11:25; Status DC Daptomycin/Sodium Chloride (Cubicin/Iv Sodium Chloride 0.9% 50ml) 50 ml @ 100 mls/hr Q24H IV Last administered on 07/19/16 16:56; Start 07/18/16 at 15:00; Stop 07/20/16 at 11:25; Status DC Alteplase, Recombinant (Cathflo) 2 mg 1X ONCE INT CAT Last administered on 07/19 06:24; Start 07/19/16 at 07:00; Stop 07/19/16 at 07:01; Status DC Gentamicin Sulfate 1 each 1 each PRN DAILY PRN MC SEE COMMENTS Last administered on 07/25/16 15:31; Start 07/19/16 at 12:15; Stop 07/25/16 at 16:14 ; Status DC Gentamicin Sulfate/Sodium Chloride (Iv Sodium Chloride 0.9% 100ml) 106.75 ml @ 106.75 mls/hr Q24H IV Last administered on 07/25/16 15:31; Start 07/19/16 at 13 :00; Stop 07/25/16 at 16:12; Status DC Gentamicin Sulfate 1 each 1 each 1X ONCE MC Last administered on 07/19/16 23: 00; Start 07/19/16 at 23:00; Stop 07/19/16 at 23:01; Status DC Sodium Chloride/ Sodium Acetate/ Potassium Chloride/ Potassium Acetate/ Potassium Phosphate/ Magnesium Sulfate/ Calcium Gluconate/ Multivitamins/ Minerals/Chromium/ Copper/Manganese/ Seleni/Zn/Total Parenteral Nutrition/Amino Acids/Dextrose/ Fat Emulsion Intravenous (Sodium Chlori... 1,920 ml @ 80 mls/ hr TPN CONT IV Last administered on 07/19/16 20:51; Start 07/19/16 at 22:00; Stop 07/20/16 at 21:59; Status DC Hyoscyamine (Anaspaz) 0.125 mg PRN Q6HRS PRN PO BLADDER SPASM; Start 07/20/16 at 09:00; Stop 07/31/16 at 15:01; Status DC Phenazopyridine HCl 200 mg 200 mg PRN TID PRN PO BLADDER SPASM Last administered on 07/21/16 20:14; Start 07/20/16 at 09:00; Stop 07/31/16 at 15:01; Status DC Linezolid 300 ml @ 300 mls/hr Q12HR IV Last administered on 07/25/16 09:02; Start 07/20/16 at 12:00; Stop 07/25/16 at 16:12; Status DC Sodium Chloride 220 meq/Sodium Acetate 90 meq/ Potassium Chloride 50 meq/ Potassium Acetate 15 meq/Potassium Phosphate 10 mmol/ Magnesium Sulfate 50 meq/ Calcium Gluconate 3 meq/ Multivitamins/ Minerals 10 ml/ Chromium/Copper/ Manganese/Seleni/ Zn 1 ml/Total Parenteral Nutrition/Amino Acids/Dextro... 1, 920 ml @ 80 mls/hr TPN CONT IV Last administered on 07/20/16 21:30; Start 07/20/16 at 22:00; Stop 07/21/16 at 21:59; Status DC Sodium Chloride/ Sodium Acetate/ Potassium Chloride/ Potassium Acetate/ Potassium Phosphate/ Magnesium Sulfate/ Multivitamins/ Minerals/Chromium/ Copper /Manganese/ Seleni/Zn/Total Parenteral Nutrition/Amino Acids/Dextrose/ Fat Emulsion Intravenous (Sodium Chloride/ Potass... 1,920 ml @ 80 mls/hr TPN CONT IV Last administered on 07/21/16 22:05; Start 07/21/16 at 22:00; Stop at 21:59; Status DC Alteplase, Recombinant 2 mg 2 mg PRN DAILY PRN INT CAT INFLAMMATION Last administered on 07/27/16 11:31; Start 07/21/16 at 15:00 Sodium Chloride 220 meq/Sodium Acetate 90 meq/ Potassium Chloride 50 meq/ Potassium Acetate 15 meq/Potassium Phosphate 10 mmol/ Magnesium Sulfate 50 meq/ Multivitamins/ Minerals 10 ml/ Chromium/Copper/ Manganese/Seleni/ Zn 1 ml/Total Parenteral Nutrition/Amino Acids/Dextrose/ Fat Emuls... 1,920 ml @ 80 mls/hr TPN CONT IV Last administered on 07/22/16 20:53; Start 07/22/16 at 22:00; Stop 07/23/16 at 21:59; Status DC Sodium Chloride/ Sodium Acetate/ Potassium Chloride/ Potassium Acetate/ Potassium Phosphate/ Magnesium Sulfate/ Multivitamins/ Minerals/Chromium/ Copper /Manganese/ Seleni/Zn/Total Parenteral Nutrition/Amino Acids/Dextrose/ Fat Emulsion Intravenous (Sodium Chloride/ Potass... 1,920 ml @ 80 mls/hr TPN CONT IV Last administered on 07/23/16 21:16; Start 07/23/16 at 22:00; Stop 07/24 at 21:59; Status DC Gentamicin Sulfate 1 each 1 each 1X ONCE MC ; Start 07/23/16 at 22:00; Stop 07/23 at 22:01; Status Cancel Sodium Chloride/ Sodium Acetate/ Potassium Chloride/ Potassium Acetate/ Potassium Phosphate/ Magnesium Sulfate/ Multivitamins/ Minerals/Chromium/ Copper /Manganese/ Seleni/Zn/Total Parenteral Nutrition/Amino Acids/Dextrose/ Fat Emulsion Intravenous (Sodium Chloride/ Potass... 1,920 ml @ 80 mls/hr TPN CONT IV Last administered on 07/24/16 21:15; Start 07/24/16 at 22:00; Stop 04/30 at 21:59; Status DC Gentamicin Sulfate 1 each 1X ONCE MC ; Start 07/25/16 at 12:30; Stop 07/25/16 at 12:31; Status Cancel Amlodipine Besylate 5 mg 5 mg DAILY PO Last administered on 07/27/16 11:12; Start 07/25/16 at 12:00; Stop 07/29/16 at 08:44; Status DC Sodium Chloride 220 meq/Sodium Acetate 90 meq/ Potassium Chloride 30 meq/ Potassium Acetate 15 meq/Potassium Phosphate 10 mmol/ Magnesium Sulfate 50 meq/ Multivitamins/ Minerals 10 ml/ Chromium/Copper/ Manganese/Seleni/ Zn 1 ml/Total Parenteral Nutrition/Amino Acids/Dextrose/ Fat Emuls... 1,920 ml @ 80 mls/hr TPN CONT IV Last administered on 07/25/16 22:25; Start 07/25/16 at 22:00; Stop 07/26/16 at 21:59; Status DC Sodium Chloride/ Sodium Acetate/ Potassium Chloride/ Potassium Acetate/ Potassium Phosphate/ Magnesium Sulfate/ Multivitamins/ Minerals/Chromium/ Copper /Manganese/ Seleni/Zn/Total Parenteral Nutrition/Amino Acids/Dextrose/ Fat Emulsion Intravenous (Sodium Chloride/ Potass... 1,920 ml @ 80 mls/hr TPN CONT IV Last administered on 07/26/16 23:16; Start 07/26/16 at 22:00; Stop at 21:59; Status DC Furosemide 20 mg 20 mg 1X ONCE IVP Last administered on 07/27/16 11:31; Start 07/27/16 at 09:00; Stop 07/27/16 at 09:01; Status DC Daptomycin 340 mg/ Sodium Chloride 50 ml @ 100 mls/hr Q24H IV Last administered on 07/29/16 15:05; Start 07/27/16 at 13:00; Stop 07/30/16 at 07:25 ; Status DC Piperacillin Sod/ Tazobactam Sod 3.375 gm/Sodium Chloride 50 ml @ 100 mls/hr Q6HRS IV Last administered on 07/30/16 05:30; Start 07/27/16 at 12:30; Stop at 07:25; Status DC Fluconazole/ Sodium Chloride 100 ml @ 100 mls/hr Q24H IV Last administered on 07/28/16 13:32; Start 07/27/16 at 13:00; Stop 07/29/16 at 00:53; Status DC Sodium Chloride 1,000 ml @ 1,000 mls/hr 1X ONCE IV Last administered on 12:34; Start 07/27/16 at 12:30; Stop 07/27/16 at 13:29; Status DC Sodium Chloride 220 meq/Sodium Acetate 90 meq/ Potassium Chloride 30 meq/ Potassium Acetate 15 meq/Potassium Phosphate 10 mmol/ Magnesium Sulfate 45 meq/ Multivitamins/ Minerals 10 ml/ Chromium/Copper/ Manganese/Seleni/ Zn 1 ml/Total Parenteral Nutrition/Amino Acids/Dextrose/ Fat Emuls... 1,920 ml @ 80 mls/hr TPN CONT IV Last administered on 07/27/16 22:38; Start 07/27/16 at 22:00; Stop 07/28/16 at 21:59; Status DC Sodium Chloride (Iv Sodium Chloride 0.9% 1000ml Bag) 1,000 ml @ 45 mls/hr [id number] IV Last administered on 07/28/16 03:24; Start 07/27/16 at 17:00; Stop 07/28/16 at 10:27; Status DC Acetaminophen 650 mg 650 mg PRN Q6HRS PRN PA fever Last administered on 03:57; Start 07/27/16 at 16:30; Stop 07/29/16 at 08:33; Status DC Sodium Chloride 1,000 ml @ 427.5 mls/ hr [id number] IV Last administered on 19:30; Start 07/27/16 at 19:30; Stop 07/27/16 at 23:30; Status DC Sodium Chloride 220 meq/Sodium Acetate 90 meq/ Potassium Chloride 30 meq/ Potassium Acetate 15 meq/Potassium Phosphate 10 mmol/ Magnesium Sulfate 45 meq/ Multivitamins/ Minerals 10 ml/ Chromium/Copper/ Manganese/Seleni/ Zn 1 ml/Total Parenteral Nutrition/Amino Acids/Dextrose/ Fat Emuls... 1,920 ml @ 80 mls/hr TPN CONT IV Last administered on 07/28/16 21:43; Start 07/28/16 at 22:00; Stop 07/29/16 at 21:59; Status DC Micafungin Sodium/ Dextrose (Mycamine) 100 ml @ 100 mls/hr Q24H IV Last administered on 08/11/16 00:56; Start 07/29/16 at 01:00 Lorazepam (Ativan) 0.05 mg PRN Q4HRS PRN IV ANXIETY / AGITATION; Start at 02:30; Stop 07/29/16 at 02:48; Status DC Lorazepam (Ativan) 0.5 mg PRN Q4HRS PRN IV ANXIETY / AGITATION Last administered on 08/09/16 17:19; Start 07/29/16 at 03:00 Acetaminophen (Tylenol) 650 mg PRN Q4HRS PRN PA MILD PAIN / TEMP; Start at 08:30 Ketorolac Tromethamine (Toradol) 30 mg PRN Q6HRS PRN IV PAIN/FEVER Last administered on 07/30/16 00:50; Start 07/29/16 at 08:30; Stop 07/30/16 at 13:01 ; Status DC Pantoprazole Sodium 40 mg 40 mg DAILYAC IVP Last administered on 08/10/16 08: 13; Start 07/29/16 at 09:00 Sodium Chloride 1,000 ml @ 45 mls/hr [id number] IV Last administered on 09:17; Start 07/29/16 at 08:45; Stop 07/31/16 at 15:01; Status DC Sodium Chloride/ Sodium Acetate/ Potassium Chloride/ Potassium Acetate/ Potassium Phosphate/ Magnesium Sulfate/ Multivitamins/ Minerals/Chromium/ Copper /Manganese/ Seleni/Zn/Total Parenteral Nutrition/Amino Acids/Dextrose/ Fat Emulsion Intravenous (Sodium Chloride/ Potass... 1,920 ml @ 80 mls/hr TPN CONT IV Last administered on 07/29/16 22:06; Start 07/29/16 at 22:00; Stop at 21:59; Status DC Lidocaine/Sodium Bicarbonate 20 ml 20 ml STK-MED ONCE IJ ; Start 07/29/16 at 13: 13; Stop 07/29/16 at 13:14; Status DC Heparin Sodium/ Sodium Chloride 500 ml @ As Directed STK-MED ONCE .ROUTE ; Start 07/29/16 at 13:13; Stop 07/29/16 at 13:14; Status DC Lidocaine/ Epinephrine (Xylocaine 1%-Epi 1:100,000) 20 ml STK-MED ONCE .ROUTE ; Start 07/29/16 at 13:22; Stop 07/29/16 at 13:23; Status DC Midazolam HCl (Versed) 5 mg STK-MED ONCE .ROUTE ; Start 07/29/16 at 13:32; Stop 07/29/16 at 13:33; Status DC Fentanyl Citrate (Fentanyl 5ml Vial) 250 mcg STK-MED ONCE .ROUTE ; Start at 13:32; Stop 07/29/16 at 13:33; Status DC Heparin Sodium/ Sodium Chloride 1,000 unit 1X ONCE IART Last administered on 13:45; Start 07/29/16 at 13:45; Stop 07/29/16 at 13:48; Status DC Midazolam HCl (Versed) 5 mg 1X ONCE IV Last administered on 07/29/16 13:45; Start 07/29/16 at 13:45; Stop 07/29/16 at 13:48; Status DC Fentanyl Citrate (Fentanyl 5ml Vial) 250 mcg 1X ONCE IV Last administered on 13:45; Start 07/29/16 at 13:45; Stop 07/29/16 at 13:48; Status DC Lidocaine/ Epinephrine 20 ml 20 ml 1X ONCE IJ Last administered on 07/29/16 13:45; Start 07/29/16 at 13:45; Stop 07/29/16 at 13:48; Status DC Sodium Chloride 220 meq/Sodium Acetate 90 meq/ Potassium Chloride 15 meq/ Potassium Acetate 30 meq/Potassium Phosphate 10 mmol/ Magnesium Sulfate 45 meq/ Multivitamins/ Minerals 10 ml/ Chromium/Copper/ Manganese/Seleni/ Zn 1 ml/Total Parenteral Nutrition/Amino Acids/Dextrose/ Fat Emuls... 1,920 ml @ 80 mls/hr TPN CONT IV ; Start 07/30/16 at 22:00; Stop 07/31/16 at 21:59; Status DC Norepinephrine Bitartrate 8 mg/ Sodium Chloride 258 ml @ 1.93 mls/hr 1X ONCE IV Last administered on 07/30/16 11:17; Start 07/30/16 at 11:15; Stop at 15:43; Status DC Norepinephrine Bitartrate/Sodium Chloride (Levophed Vial/ Iv Sodium Chloride 0.9 % 250ml) 258 ml @ 0 mls/hr CONT PRN IV SEE I/O RECORD Last administered on 08/02 19:54; Start 07/30/16 at 11:15; Stop 08/04/16 at 09:29; Status DC Furosemide 60 mg 60 mg 1X ONCE IVP Last administered on 07/30/16 11:14; Start 07/30/16 at 11:15; Stop 07/30/16 at 11:16; Status DC Sodium Chloride 500 ml @ 500 mls/hr Q1H IV Last administered on 07/30/16 17: 04; Start 07/30/16 at 14:30; Stop 07/30/16 at 15:29; Status DC Albumin Human 100 ml @ 100 mls/hr Q8HRS IV Last administered on 07/31/16 05: 37; Start 07/30/16 at 14:30; Stop 07/31/16 at 06:59; Status DC Furosemide/Sodium Chloride (Lasix Drip/Iv Sodium Chloride 0.9% 100ml) 100 ml @ 0 mls/hr CONT PRN IV SEE I/O RECORD Last administered on 07/31/16 03:17; Start 07/30/16 at 14:30; Stop 08/01/16 at 13:19; Status DC Ondansetron HCl (Zofran) 8 mg PRN Q8HRS PRN IV NAUSEA/VOMITING Last administered on 07/30/16 14:38; Start 07/30/16 at 14:30 Sodium Bicarbonate 50 meq 50 meq 1X ONCE IV Last administered on 07/30/16 14: 43; Start 07/30/16 at 14:30; Stop 07/30/16 at 14:31; Status DC Heparin Sodium/ Sodium Chloride 500 ml @ As Directed STK-MED ONCE .ROUTE ; Start 07/30/16 at 14:49; Stop 07/30/16 at 14:50; Status DC Lidocaine HCl 20 ml STK-MED ONCE .ROUTE ; Start 07/30/16 at 14:49; Stop at 14:50; Status DC Midazolam HCl (Versed) 2 mg STK-MED ONCE .ROUTE ; Start 07/30/16 at 15:19; Stop 07/30/16 at 15:20; Status DC Heparin Sodium/ Sodium Chloride 1,000 unit 1X ONCE IART Last administered on 15:44; Start 07/30/16 at 15:45; Stop 07/30/16 at 15:46; Status DC Midazolam HCl (Versed) 1.5 mg 1X ONCE IV Last administered on 07/30/16 15:44 ; Start 07/30/16 at 15:45; Stop 07/30/16 at 15:46; Status DC Lidocaine HCl 20 ml 1X ONCE IJ Last administered on 07/30/16 15:44; Start at 15:45; Stop 07/30/16 at 15:46; Status DC Heparin Sodium (Porcine) 52504 unit 10,000 unit STK-MED ONCE .ROUTE ; Start at 15:54; Stop 07/30/16 at 15:55; Status DC Fentanyl Citrate 30 ml @ 0 mls/hr CONT PRN PRN IV PROTOCOL Last administered on 08/08/16 10:21; Start 07/30/16 at 16:45; Stop 08/08/16 at 11:03; Status DC Sodium Bicarbonate/ Dextrose 1,150 ml @ 125 mls/hr 1X ONCE IV Last administered on 07/30/16 18:34; Start 07/30/16 at 17:30; Stop 07/31/16 at 02:41 ; Status DC Succinylcholine Chloride 200 mg 200 mg STK-MED ONCE .ROUTE ; Start 07/30/16 at 19:47; Stop 07/30/16 at 19:48; Status DC Propofol 100 ml @ As Directed STK-MED ONCE IV ; Start 07/30/16 at 19:48; Stop 07/30/16 at 19:49; Status DC Midazolam HCl (Versed 100mg/ 100ml Premix) 100 ml @ 0 mls/hr CONT PRN IV SEE I/ O RECORD Last administered on 08/03/16 12:18; Start 07/30/16 at 21:15 Sodium Bicarbonate 50 meq 50 meq 1X ONCE IV Last administered on 07/30/16 22: 15; Start 07/30/16 at 22:30; Stop 07/30/16 at 22:31; Status DC Dopamine HCl/ Dextrose 250 ml @ 11.513 mls/ hr CONT PRN IV SEE I/O RECORD Last administered on 07/31/16 20:16; Start 07/30/16 at 22:15; Stop 08/04/16 at 09:29; Status DC Sodium Bicarbonate/ Dextrose 1,150 ml @ 125 mls/hr Q9H12M IV Last administered on 08/01/16 09:30; Start 07/31/16 at 03:00; Stop 08/01/16 at 13:19 ; Status DC Propofol (Diprivan) 1,000 mg STK-MED ONCE IV ; Start 07/30/16 at 20:00; Stop at 08:16; Status DC Succinylcholine Chloride 200 mg 200 mg STK-MED ONCE .ROUTE ; Start 07/30/16 at 20:00; Stop 07/31/16 at 08:16; Status DC Tigecycline 50 mg/ Sodium Chloride 50 ml @ 100 mls/hr Q12HR IV Last administered on 08/04/16 09:01; Start 07/31/16 at 21:00; Stop 08/04/16 at 10:00 ; Status DC Tigecycline/ Sodium Chloride (Tygacil/Iv Sodium Chloride 0.9% 100ml) 100 ml @ 200 mls/hr 1X ONCE IV Last administered on 07/31/16 09:22; Start 07/31/16 at 09:00; Stop 07/31/16 at 09:29; Status DC Darbepoetin Sarbjit 60 mcg 60 mcg [id number] SQ Last administered on 08/07/16 21:41 ; Start 07/31/16 at 21:00 Albumin Human 100 ml @ 100 mls/hr 1X ONCE IV Last administered on 07/31/16 11:40; Start 07/31/16 at 11:15; Stop 07/31/16 at 12:14; Status DC Albumin Human 100 ml @ 100 mls/hr 1X ONCE IV Last administered on 07/31/16 12:03; Start 07/31/16 at 11:15; Stop 07/31/16 at 12:14; Status DC Sodium Chloride (Iv Sodium Chloride 0.9% 1000ml Bag) 1,000 ml @ 1,000 mls/hr Q1H PRN IV hypotension; Start 07/31/16 at 11:33; Stop 07/31/16 at 17:32; Status DC Info (PHARMACY MONITORING -- do not chart) 1 each PRN DAILY PRN MC SEE COMMENTS ; Start 07/31/16 at 11:45 Info (PHARMACY MONITORING -- do not chart) 1 each PRN DAILY PRN MC SEE COMMENTS ; Start 07/31/16 at 11:45; Status UNV Hydrocortisone Sodium Succinate (Solu-Cortef) 100 mg Q8HRS IV Last administered on 08/04/16 06:16; Start 08/01/16 at 07:00; Stop 08/04/16 at 09:29 ; Status DC Albuterol/ Ipratropium (Duoneb) 3 ml RTQID NEB Last administered on 08/11/16 08:49; Start 08/01/16 at 08:00 Albuterol/ Ipratropium 3 ml 3 ml STK-MED ONCE .ROUTE Last administered on 07:34; Start 08/01/16 at 06:59; Stop 08/01/16 at 07:00; Status DC Sodium Chloride 1,000 ml @ 1,000 mls/hr Q1H PRN IV hypotension; Start 08/01/16 at 06:57; Stop 08/01/16 at 12:56; Status DC Albumin Human (Albuminar) 200 ml @ 200 mls/hr 1X PRN PRN IV Hypotension; Start 08/01/16 at 07:00; Stop 08/01/16 at 12:59; Status DC Info (PHARMACY MONITORING -- do not chart) 1 each PRN DAILY PRN MC SEE COMMENTS ; Start 08/01/16 at 07:00; Status UNV Info 1 each 1 each PRN DAILY PRN MC SEE COMMENTS Last administered on 14:40; Start 08/01/16 at 13:30 Sodium Chloride 220 meq/Sodium Acetate 90 meq/ Potassium Chloride 15 meq/ Potassium Acetate 30 meq/Potassium Phosphate 10 mmol/ Magnesium Sulfate 45 meq/ Multivitamins/ Minerals 10 ml/ Chromium/Copper/ Manganese/Seleni/ Zn 1 ml/Total Parenteral Nutrition/Amino Acids/Dextrose/ Fat Emuls... 1,920 ml @ 80 mls/hr TPN CONT IV Last administered on 08/01/16 21:56; Start 08/01/16 at 22:00; Stop 08/02/16 at 21:59; Status DC Potassium Chloride (KCl Premix 20meq) 50 ml @ 50 mls/hr Q1H IV Last administered on 08/01/16 19:05; Start 08/01/16 at 17:00; Stop 08/01/16 at 18:59 ; Status DC Insulin Aspart 0-6 UNITS TIDWMEALS SQ Last administered on 08/02/16 11:33; Start 08/02/16 at 12:00; Stop 08/02/16 at 14:34; Status DC Sodium Chloride 220 meq/Sodium Acetate 90 meq/ Potassium Chloride 15 meq/ Potassium Acetate 30 meq/Magnesium Sulfate 45 meq/ Multivitamins/ Minerals 10 ml / Chromium/Copper/ Manganese/Seleni/ Zn 1 ml/Total Parenteral Nutrition/Amino Acids/Dextrose/ Fat Emulsion Intravenous 1,920 ml @ 80 mls/hr TPN CONT IV Last administered on 08/02/16 21:34; Start 08/02/16 at 22:00; Stop 08/03/16 at 21:59; Status DC Levofloxacin/ Dextrose 150 ml @ 100 mls/hr 1X ONCE IV Last administered on 14:35; Start 08/02/16 at 14:00; Stop 08/02/16 at 15:29; Status DC Daptomycin/Sodium Chloride (Cubicin/Iv Sodium Chloride 0.9% 50ml) 50 ml @ 100 mls/hr ONCE ONCE IV Last administered on 08/02/16 14:34; Start 08/02/16 at 15 :00; Stop 08/02/16 at 15:29; Status DC Insulin Aspart 0-6 UNITS Q6HRS SQ Last administered on 08/10/16 15:21; Start 08/02/16 at 18:00 Sodium Chloride (Iv Sodium Chloride 0.9% 1000ml Bag) 1,000 ml @ 1,000 mls/hr Q1H PRN IV hypotension; Start 08/03/16 at 07:26; Stop 08/03/16 at 13:25; Status DC Diphenhydramine HCl (Benadryl) 25 mg 1X PRN PRN IV ITCHING; Start 08/03/16 at 07:30; Stop 08/04/16 at 07:29; Status DC Diphenhydramine HCl (Benadryl) 25 mg 1X PRN PRN IV ITCHING; Start 08/03/16 at 07:30; Stop 08/04/16 at 07:29; Status DC Sodium Chloride (Normal Saline Flush) 10 ml 1X PRN PRN IV AP catheter pack; Start 08/03/16 at 07:30; Stop 08/04/16 at 07:29; Status DC Sodium Chloride 10 ml 10 ml 1X PRN PRN IV COTTON WASHER catheter pack; Start 08/03/16 at 07:30; Stop 08/04/16 at 07:29; Status DC Sodium Chloride (Iv Sodium Chloride 0.9% 1000ml Bag) 1,000 ml @ 400 mls/hr Q2H30M PRN IV PATENCY; Start 08/03/16 at 07:26; Stop 08/03/16 at 19:25; Status DC Info 1 each 1 each PRN DAILY PRN MC SEE COMMENTS; Start 08/03/16 at 07:30; Status UNV Albumin Human 200 ml @ 200 mls/hr Q2HR IV Last administered on 08/03/16 10:00 ; Start 08/03/16 at 08:44; Stop 08/03/16 at 10:59; Status DC Sodium Chloride 160 meq/Sodium Acetate 60 meq/ Potassium Chloride 15 meq/ Potassium Acetate 30 meq/Magnesium Sulfate 25 meq/ Multivitamins/ Minerals 10 ml / Chromium/Copper/ Manganese/Seleni/ Zn 1 ml/Total Parenteral Nutrition/Amino Acids/Dextrose/ Fat Emulsion Intravenous 1,500 ml @ 62.5 mls/hr TPN CONT IV Last administered on 08/03/16 22:52; Start 08/03/16 at 22:00; Stop 08/04/16 at 21:59; Status DC Levofloxacin/ Dextrose 100 ml @ 100 mls/hr 1X ONCE IV Last administered on 10:50; Start 08/04/16 at 07:30; Stop 08/04/16 at 08:30; Status DC Daptomycin 450 mg/ Sodium Chloride 50 ml @ 100 mls/hr ONCE ONCE IV Last administered on 08/04/16 09:55; Start 08/04/16 at 08:00; Stop 08/04/16 at 08:30 ; Status DC Tigecycline/ Sodium Chloride (Tygacil/Iv Sodium Chloride 0.9% 50ml) 50 ml @ 100 mls/hr Q12HR IV Last administered on 08/09/16 07:20; Start 08/04/16 at 21: 00; Stop 08/09/16 at 09:42; Status DC Hydrocortisone Sodium Succinate 50 mg 50 mg Q8HRS IV Last administered on 05:39; Start 08/04/16 at 14:00; Stop 08/05/16 at 11:12; Status DC Furosemide 100 mg/ Sodium Chloride 100 ml @ 0 mls/hr CONT PRN IV SEE I/O RECORD Last administered on 08/09/16 06:43; Start 08/04/16 at 11:30; Stop 08/09 at 11:31; Status DC Sodium Chloride 160 meq/Sodium Acetate 60 meq/ Potassium Chloride 15 meq/ Potassium Acetate 30 meq/Magnesium Sulfate 25 meq/ Multivitamins/ Minerals 10 ml / Chromium/Copper/ Manganese/Seleni/ Zn 1 ml/Total Parenteral Nutrition/Amino Acids/Dextrose/ Fat Emulsion Intravenous 1,500 ml @ 62.5 mls/hr TPN CONT IV Last administered on 08/04/16 21:45; Start 08/04/16 at 22:00; Stop 08/06/16 at 08:48; Status DC Sodium Chloride 1,000 ml @ 1,000 mls/hr Q1H PRN IV hypotension; Start 08/04/16 at 12:00; Stop 08/04/16 at 17:59; Status DC Sodium Chloride (Iv Sodium Chloride 0.9% 1000ml Bag) 1,000 ml @ 400 mls/hr Q2H30M PRN IV PATENCY; Start 08/04/16 at 12:00; Stop 08/04/16 at 23:59; Status DC Info 1 each 1 each PRN DAILY PRN MC SEE COMMENTS; Start 08/04/16 at 16:30; Status UNV Levofloxacin/ Dextrose 100 ml @ 100 mls/hr 1X ONCE IV Last administered on 14:27; Start 08/05/16 at 14:00; Stop 08/05/16 at 14:59; Status DC Daptomycin/Sodium Chloride (Cubicin/Iv Sodium Chloride 0.9% 50ml) 50 ml @ 100 mls/hr 1X ONCE IV Last administered on 08/05/16 14:27; Start 08/05/16 at 14: 00; Stop 08/05/16 at 14:29; Status DC Heparin Sodium (Porcine) 10,000 unit STK-MED ONCE .ROUTE ; Start 08/05/16 at 09: 35; Stop 08/05/16 at 09:36; Status DC Lidocaine/Sodium Bicarbonate 20 ml 20 ml STK-MED ONCE IJ ; Start 08/05/16 at 09: 36; Stop 08/05/16 at 09:37; Status DC Heparin Sodium/ Sodium Chloride 500 ml @ As Directed STK-MED ONCE .ROUTE ; Start 08/05/16 at 09:36; Stop 08/05/16 at 09:37; Status DC Lidocaine/Sodium Bicarbonate (Buffered Lidocaine 1%) 2 ml 1X ONCE IJ Last administered on 08/05/16 10:04; Start 08/05/16 at 10:00; Stop 08/05/16 at 10:02 ; Status DC Heparin Sodium/ Sodium Chloride 60 unit 1X ONCE IV Last administered on 10:04; Start 08/05/16 at 10:00; Stop 08/05/16 at 10:02; Status DC Heparin Sodium (Porcine) 2,800 unit 1X ONCE INT CAT Last administered on 10:04; Start 08/05/16 at 10:00; Stop 08/05/16 at 10:02; Status DC Info (PHARMACY MONITORING -- do not chart) 1 each PRN DAILY PRN MC SEE COMMENTS ; Start 08/05/16 at 10:30; Stop 08/05/16 at 10:30; Status DC Info (PHARMACY MONITORING -- do not chart) 1 each PRN DAILY PRN MC SEE COMMENTS ; Start 08/05/16 at 10:30; Stop 08/05/16 at 10:30; Status DC Hydrocortisone Sodium Succinate 50 mg 50 mg BID IV Last administered on 07:49; Start 08/05/16 at 21:00; Stop 08/07/16 at 10:23; Status DC Sodium Chloride 160 meq/Sodium Acetate 60 meq/ Potassium Chloride 15 meq/ Potassium Acetate 30 meq/Magnesium Sulfate 25 meq/ Multivitamins/ Minerals 10 ml / Chromium/Copper/ Manganese/Seleni/ Zn 1 ml/Total Parenteral Nutrition/Amino Acids/Dextrose/ Fat Emulsion Intravenous 1,500 ml @ 62.5 mls/hr TPN CONT IV Last administered on 08/05/16 22:04; Start 08/05/16 at 22:00; Stop 08/06/16 at 21:59; Status DC Daptomycin 500 mg/ Sodium Chloride 50 ml @ 100 mls/hr Q24H IV Last administered on 08/10/16 15:12; Start 08/06/16 at 14:00 Sodium Chloride (Iv Sodium Chloride 0.9% 1000ml Bag) 1,000 ml @ 1,000 mls/hr Q1H PRN IV hypotension; Start 08/06/16 at 08:21; Stop 08/06/16 at 14:20; Status DC Diphenhydramine HCl (Benadryl) 25 mg 1X PRN PRN IV ITCHING; Start 08/06/16 at 08:30; Stop 08/07/16 at 08:29; Status DC Diphenhydramine HCl (Benadryl) 25 mg 1X PRN PRN IV ITCHING; Start 08/06/16 at 08:30; Stop 08/07/16 at 08:29; Status DC Sodium Chloride (Normal Saline Flush) 10 ml 1X PRN PRN IV AP catheter pack; Start 08/06/16 at 08:30; Stop 08/07/16 at 08:29; Status DC Sodium Chloride 10 ml 10 ml 1X PRN PRN IV COTTON WASHER catheter pack; Start 08/06/16 at 08:30; Stop 08/07/16 at 08:29; Status DC Sodium Chloride (Iv Sodium Chloride 0.9% 1000ml Bag) 1,000 ml @ 400 mls/hr Q2H30M PRN IV PATENCY; Start 08/06/16 at 08:21; Stop 08/06/16 at 20:20; Status DC Info 1 each 1 each PRN DAILY PRN MC SEE COMMENTS; Start 08/06/16 at 08:30; Status UNV Albumin Human 200 ml @ 200 mls/hr 1X STAT IV Last administered on 08/06/16 10:09; Start 08/06/16 at 09:52; Stop 08/06/16 at 10:51; Status DC Sodium Chloride/ Sodium Acetate/ Potassium Chloride/ Potassium Acetate/ Magnesium Sulfate/ Multivitamins/ Minerals/Chromium/ Copper/Manganese/ Seleni/Zn /Total Parenteral Nutrition/Amino Acids/Dextrose/ Fat Emulsion Intravenous ( Sodium Chloride/ Infuvite Adult/ Multitrace-5 Conc/ Tpn - Tpn Flu... 1,500 ml @ 62.5 mls/hr TPN CONT IV Last administered on 08/06/16 21:57; Start at 22:00; Stop 08/07/16 at 21:59; Status DC Darbepoetin Sarbjit 60 mcg 60 mcg [id number] SQ ; Start 08/07/16 at 21:00; Status UNV Potassium Chloride (KCl Premix 20meq) 50 ml @ 50 mls/hr Q1H IV Last administered on 08/07/16t 10:46; Start 08/07/16 at 08:00; Stop 08/07/16 at 09:59 ; Status DC Hydrocortisone Sodium Succinate 25 mg 25 mg BID IV ; Start 08/07/16 at 21:00; Stop 08/07/16 at 21:00; Status DC Sodium Chloride (Iv Sodium Chloride 0.9% 1000ml Bag) 1,000 ml @ 1,000 mls/hr Q1H PRN IV hypotension; Start 08/07/16 at 12:08; Stop 08/07/16 at 18:07; Status DC Diphenhydramine HCl (Benadryl) 25 mg 1X PRN PRN IV ITCHING; Start 08/07/16 at 12:15; Stop 08/08/16 at 12:14; Status DC Diphenhydramine HCl (Benadryl) 25 mg 1X PRN PRN IV ITCHING; Start 08/07/16 at 12:15; Stop 08/08/16 at 12:14; Status DC Sodium Chloride (Normal Saline Flush) 10 ml 1X PRN PRN IV AP catheter pack; Start 08/07/16 at 12:15; Stop 08/08/16 at 12:14; Status DC Sodium Chloride (Normal Saline Flush) 10 ml 1X PRN PRN IV COTTON WASHER catheter pack; Start 08/07/16 at 12:15; Stop 08/08/16 at 12:14; Status DC Info (PHARMACY MONITORING -- do not chart) 1 each PRN DAILY PRN MC SEE COMMENTS ; Start 08/07/16 at 12:15; Status UNV Info 1 each 1 each PRN DAILY PRN MC SEE COMMENTS; Start 08/07/16 at 12:15; Status UNV Sodium Chloride 160 meq/Sodium Acetate 60 meq/ Potassium Chloride 55 meq/ Potassium Acetate 30 meq/Magnesium Sulfate 25 meq/ Multivitamins/ Minerals 10 ml / Chromium/Copper/ Manganese/Seleni/ Zn 1 ml/Total Parenteral Nutrition/Amino Acids/Dextrose/ Fat Emulsion Intravenous 1,500 ml @ 62.5 mls/hr TPN CONT IV Last administered on 08/07/16t 21:41; Start 08/07/16 at 22:00; Stop 08/08/16 at 21:59; Status DC Potassium Chloride (KCl Premix 20meq) 50 ml @ 50 mls/hr 1X ONCE IV Last administered on 08/08/16 09:04; Start 08/08/16 at 10:00; Stop 08/08/16 at 10:59 ; Status DC Fentanyl Citrate 25 mcg 25 mcg PRN Q4HRS PRN IV PAIN Last administered on 15:04; Start 08/08/16 at 11:00 Potassium Chloride 50 ml @ 50 mls/hr 1X ONCE IV Last administered on 15:33; Start 08/08/16 at 11:15; Stop 08/08/16 at 12:14; Status DC Sodium Chloride 140 meq/Sodium Acetate 60 meq/ Potassium Chloride 70 meq/ Potassium Acetate 30 meq/Magnesium Sulfate 25 meq/ Multivitamins/ Minerals 10 ml / Chromium/Copper/ Manganese/Seleni/ Zn 1 ml/Total Parenteral Nutrition/Amino Acids/Dextrose/ Fat Emulsion Intravenous 1,500 ml @ 62.5 mls/hr TPN CONT IV Last administered on 08/08/16 21:42; Start 08/08/16 at 22:00; Stop 08/09/16 at 11:30; Status DC Tigecycline 50 mg/ Sodium Chloride 50 ml @ 100 mls/hr Q12HR IV ; Start at 09:42; Stop 08/09/16 at 10:03; Status DC Dextrose 1,000 ml @ 80 mls/hr [id number] IV ; Start 08/09/16 at 11:45; Stop at 11:57; Status DC Dextrose/Sodium Chloride 1,000 ml @ 50 mls/hr Q20H IV Last administered on 12:22; Start 08/09/16 at 12:00; Stop 08/10/16 at 10:09; Status DC Sodium Chloride 10 meq/Sodium Acetate 10 meq/ Potassium Chloride 40 meq/ Potassium Acetate 10 meq/Magnesium Sulfate 15 meq/ Multivitamins/ Minerals 10 ml / Chromium/Copper/ Manganese/Seleni/ Zn 1 ml/Total Parenteral Nutrition/Amino Acids/Dextrose/ Fat Emulsion Intravenous 1,512 ml @ 63 mls/hr TPN CONT IV Last administered on 08/10/16 10:44; Start 08/09/16 at 22:00; Stop 08/10/16 at 21:59; Status DC Dextrose 1,000 ml @ 100 mls/hr Q10H IV Last administered on 08/10/16 10:37; Start 08/10/16 at 10:15; Stop 08/10/16 at 13:48; Status DC Potassium Chloride 50 ml @ 50 mls/hr 1X ONCE IV Last administered on 10:39; Start 08/10/16 at 10:30; Stop 08/10/16 at 11:29; Status DC Dextrose 1,000 ml @ 50 mls/hr Q20H IV Last administered on 08/10/16 15:13; Start 08/10/16 at 14:00 Potassium Chloride/ Potassium Acetate/ Magnesium Sulfate/ Multivitamins/ Minerals/Chromium/ Copper/Manganese/ Seleni/Zn/Total Parenteral Nutrition/Amino Acids/Dextrose/ Fat Emulsion Intravenous (Infuvite Adult/ Multitrace-5 Conc/ Tpn - Tpn Fluid/ Dextrose 70%-Water Iv Soln/ Intralipid 20%) 1,512 ml @ 63 mls/ hr TPN CONT IV Last administered on 08/10/16 22:13; Start 08/10/16 at 22:00; Stop 08/11/16 at 21:59 Active Scripts Active Dilaudid (Hydromorphone Hcl) 4 Mg Tablet 4 Mg PO Q6HRS Phenazopyridine Hcl 200 Mg Tablet 200 Mg PO PRN TID PRN FENTANYL 50mcg/hr (Fentanyl) 1 Each Patch.td72 1 Patch TD Q3DAYS Anaspaz (Hyoscyamine Sulfate) 0.125 Mg Tab.rapdis 0.125 Mg PO Q6HRS PRN Cefpodoxime Proxetil 200 Mg Tablet 200 Mg PO BID Sertraline Hcl 50 Mg Tablet 100 Mg PO DAILY 30 Days Protonix (Pantoprazole Sodium) 40 Mg Tablet.dr 1 Tab PO DAILY Zinc Oxide 56.7 Gm Oint...g. 1 Sang TP BID Lidocaine 35.44 Gm Oint...g. 1 Sang TP BID Ondansetron Odt (Ondansetron) 4 Mg Tab.rapdis 8 Mg PO PRN Q8HRS PRN Gas-X (Simethicone) 80 Mg Tab.chew 80 Mg PO PRN QID PRN Reported Lorazepam 0.5 Mg Tablet 0.5 Mg PO PRN BID PRN Vitals/I & O Vital Sign - Last 24 Hours 08/10/16 08/10/16 08/10/16 08/10/16 10:00 11:00 12:00 12:00 Temp 98.1 98.1 Pulse 98 116 120 Resp 14 14 15 B/P 168/74 162/73 173/74 Pulse Ox 100 100 100 O2 Delivery Ventilator Ventilator Ventilator Mechanical Ventilator 08/10/16 08/10/16 08/10/16 08/10/16 12:15 13:00 13:10 14:00 Pulse 110 101 Resp 22 23 B/P 142/84 135/62 Pulse Ox 99 99 99 O2 Delivery Venturi Mask Venturi Mask Venturi Mask Venturi Mask O2 Flow Rate 9.0 6.0 08/10/16 08/10/16 08/10/16 08/10/16 15:00 15:47 16:00 16:00 Temp 98.0 98.0 Pulse 99 102 Resp 24 B/P 127/64 140/72 Pulse Ox 99 100 99 O2 Delivery Venturi Mask Mask Venturi Mask Venturi Mask O2 Flow Rate 6.0 08/10/16 08/10/16 08/10/16 08/10/16 17:00 18:00 19:00 19:20 Temp 97.4 97.4 Pulse 96 96 64 Resp 20 16 20 B/P 134/67 135/62 116/63 Pulse Ox 100 100 100 O2 Delivery Venturi Mask Venturi Mask Nasal Cannula Nasal Cannula O2 Flow Rate 3.0 3.0 3.0 3.0 08/10/16 08/10/16 08/10/16 08/10/16 19:32 20:00 21:00 22:00 Pulse 99 89 85 Resp B/P 149/69 132/63 126/54 Pulse Ox 100 99 100 99 O2 Delivery Nasal Cannula Nasal Cannula Nasal Cannula Nasal Cannula O2 Flow Rate 3.0 2.0 2.0 2.0 08/10/16 08/11/16 08/11/16 08/11/16 23:00 00:05 00:05 01:00 Temp 97.9 97.9 Pulse 74 79 87 Resp B/P 108/48 133/79 107/57 Pulse Ox 100 100 100 O2 Delivery Nasal Cannula Nasal Cannula Nasal Cannula Nasal Cannula O2 Flow Rate 2.0 2.0 3.0 3.0 08/11/16 08/11/16 08/11/16 08/11/16 02:00 03:00 03:59 04:00 Temp 97.3 97.3 Pulse 76 58 98 Resp 23 B/P 123/82 115/52 135/53 Pulse Ox 100 100 100 O2 Delivery Nasal Cannula Nasal Cannula Nasal Cannula Nasal Cannula O2 Flow Rate 3.0 2.0 2.0 2.0 08/11/16 08/11/16 08/11/16 08/11/16 05:00 06:07 07:00 08:00 Pulse 62 55 88 Resp B/P 113/54 98/51 148/74 Pulse Ox 100 100 100 O2 Delivery Nasal Cannula Nasal Cannula Nasal Cannula Nasal Cannula O2 Flow Rate 2.0 2.0 2.0 2.0 08/11/16 08/11/16 08:00 08:50 Temp 96.3 96.3 Pulse 52 Resp 24 B/P 109/68 Pulse Ox 100 100 O2 Delivery Nasal Cannula Nasal Cannula O2 Flow Rate 2.0 2.0 Intake and Output 08/10/16 08/10/16 08/11/16 15:00 23:00 07:00 Intake Total 290 ml 776 ml 1283 ml Output Total 180 ml 985 ml 890 ml Balance 110 ml -209 ml 393 ml MATT PALACIOS MD Aug 11, 2016 09:14
--- NOTE | 2016-08-11 09:17 | PDOC ---
PROGRESS NOTES Subjective Subjective c/c - f/u of DIC Objective Objective Vital Signs Date Time Temp Pulse Resp B/P Pulse Ox O2 Delivery O2 Flow Rate FiO2 08/11/16 08:50 100 Nasal Cannula 2.0 08/11/16 08:00 96.3 52 24 109/68 96.3 Intake and Output 08/11/16 07:00 Intake Total 2349 ml Output Total 2055 ml Balance 294 ml IV Total 2349 ml Output Urine Total 1055 ml Stool Total 350 ml Drainage Total 650 ml Physical Exam Heart: Normal S1, Normal S2 General: Alert, Oriented X3 Lungs: Clear to auscultation Psych/Mental Status: Mental status NL Assessment Assessment Problems Medical Problems: (1) Abdominal pain Status: Acute (2) Enterocutaneous fistula Status: Acute (3) Sepsis Status: Acute (4) Urinary tract infection Status: Acute (5) UTI (urinary tract infection) Status: Acute IMPRESSION AND PLAN: 1. DIC - Thrombocytopenia secondary to sepsis. In addition, there is evidence of elevated PT, PTT and decreased fibrinogen which is suggestive of disseminated intravascular coagulation. s/p cryoprecipitate infusion 08/05 and 08/06/16 and . Fibrinogen level improved to 231. No bleeding. 2. Anemia secondary to sepsis,disseminated intravascular coagulation, hemoglobin 7.3. Continue to monitor. 3. Sepsis, Judi glabrata positive. Appreciate ID management. 4. 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 5. Respiratory failure. extubated 08/10/16. Comment Review of Relevant I have reviewed the following items lucila (where applicable) has been applied. Labs Laboratory Tests Test 08/09/16 11:04 08/09/16 11:30 08/09/16 16:20 08/09/16 16:30 Glucose (Fingerstick) 142mg/dL (70-99) Prothrombin Time 15.3SEC (11.7-14.0) Prothromb Time International Ratio 1.3 (0.8-1.1) Activated Partial Thromboplast Time 37SEC (24-38) Fibrinogen 231mg/dL (200-440) O2 Saturation 98% (92-99) Arterial Blood pH 7.55 (7.35-7.45) Arterial Blood pCO2 at Patient Temp 33mmHg (35-46) Arterial Blood pO2 at Patient Temp 119mmHg (65-108) Arterial Blood HCO3 28mmol/L (21-28) Arterial Blood Base Excess 6mmol/L (-3-3) FiO2 35 Sodium Level 153mmol/L (136-145) Potassium Level 3.8mmol/L (3.5-5.1) Chloride Level 112mmol/L (98-107) Carbon Dioxide Level 34mmol/L (21-32) Anion Gap 7 (6-14) Blood Urea Nitrogen 83mg/dL (7-20) Creatinine 1.2mg/dL (0.6-1.0) Estimated GFR (Cockcroft-Gault) 55.3 Glucose Level 153mg/dL (70-99) Calcium Level 9.2mg/dL (8.5-10.1) Test 08/10/16 00:02 08/10/16 05:45 08/10/16 05:47 08/10/16 10:20 Glucose (Fingerstick) 132mg/dL (70-99) 109mg/dL (70-99) White Blood Count 7.6x10^3/uL (4.0-11.0) Red Blood Count 3.22x10^6/uL (3.50-5.40) Hemoglobin 8.3g/dL (12.0-15.5) Hematocrit 26.5% (36.0-47.0) Mean Corpuscular Volume 82fL (79-100) Mean Corpuscular Hemoglobin 26pg (25-35) Mean Corpuscular Hemoglobin Concent 31g/dL (31-37) Red Cell Distribution Width 21.8% (11.5-14.5) Platelet Count 71x10^3/uL (140-400) Neutrophils (%) (Auto) 74% (31-73) Lymphocytes (%) (Auto) 15% (24-48) Monocytes (%) (Auto) 9% (0-9) Eosinophils (%) (Auto) 1% (0-3) Basophils (%) (Auto) 1% (0-3) Neutrophils # (Auto) 5.6x10^3uL (1.8-7.7) Lymphocytes # (Auto) 1.1x10^3/uL (1.0-4.8) Monocytes # (Auto) 0.7x10^3/uL (0.0-1.1) Eosinophils # (Auto) 0.1x10^3/uL (0.0-0.7) Basophils # (Auto) 0.1x10^3/uL (0.0-0.2) Sodium Level 154mmol/L (136-145) Potassium Level 3.4mmol/L (3.5-5.1) Chloride Level 113mmol/L (98-107) Carbon Dioxide Level 33mmol/L (21-32) Anion Gap 8 (6-14) Blood Urea Nitrogen 78mg/dL (7-20) Creatinine 1.0mg/dL (0.6-1.0) Estimated GFR (Cockcroft-Gault) 68.2 Glucose Level 117mg/dL (70-99) Calcium Level 9.4mg/dL (8.5-10.1) Phosphorus Level 4.2mg/dL (2.6-4.7) Magnesium Level 2.4mg/dL (1.8-2.4) O2 Saturation 99% (92-99) Arterial Blood pH 7.51 (7.35-7.45) Arterial Blood pCO2 at Patient Temp 40mmHg (35-46) Arterial Blood pO2 at Patient Temp 161mmHg (65-108) Arterial Blood HCO3 31mmol/L (21-28) Arterial Blood Base Excess 7mmol/L (-3-3) FiO2 35 Test 08/10/16 15:01 08/10/16 15:18 08/10/16 18:30 08/11/16 00:54 O2 Saturation 98% (92-99) Arterial Blood pH 7.49 (7.35-7.45) Arterial Blood pCO2 at Patient Temp 35mmHg (35-46) Arterial Blood pO2 at Patient Temp 121mmHg (65-108) Arterial Blood HCO3 26mmol/L (21-28) Arterial Blood Base Excess 3mmol/L (-3-3) FiO2 30 Glucose (Fingerstick) 158mg/dL (70-99) 149mg/dL (70-99) 138mg/dL (70-99) Test 08/11/16 03:28 08/11/16 03:37 08/11/16 05:30 08/11/16 05:34 O2 Saturation 99% (92-99) Arterial Blood pH 7.48 (7.35-7.45) Arterial Blood pCO2 at Patient Temp 39mmHg (35-46) Arterial Blood pO2 at Patient Temp 161mmHg (65-108) Arterial Blood HCO3 29mmol/L (21-28) Arterial Blood Base Excess 5mmol/L (-3-3) FiO2 28 Glucose (Fingerstick) 119mg/dL (70-99) 135mg/dL (70-99) White Blood Count 5.9x10^3/uL (4.0-11.0) Red Blood Count 2.75x10^6/uL (3.50-5.40) Hemoglobin 7.3g/dL (12.0-15.5) Hematocrit 23.3% (36.0-47.0) Mean Corpuscular Volume 85fL (79-100) Mean Corpuscular Hemoglobin 26pg (25-35) Mean Corpuscular Hemoglobin Concent 31g/dL (31-37) Red Cell Distribution Width 23.5% (11.5-14.5) Platelet Count 75x10^3/uL (140-400) Neutrophils (%) (Auto) 69% (31-73) Lymphocytes (%) (Auto) 17% (24-48) Monocytes (%) (Auto) 10% (0-9) Eosinophils (%) (Auto) 3% (0-3) Basophils (%) (Auto) 1% (0-3) Neutrophils # (Auto) 4.1x10^3uL (1.8-7.7) Lymphocytes # (Auto) 1.0x10^3/uL (1.0-4.8) Monocytes # (Auto) 0.6x10^3/uL (0.0-1.1) Eosinophils # (Auto) 0.2x10^3/uL (0.0-0.7) Basophils # (Auto) 0.0x10^3/uL (0.0-0.2) Sodium Level 156mmol/L (136-145) Potassium Level 3.2mmol/L (3.5-5.1) Chloride Level 116mmol/L (98-107) Carbon Dioxide Level 31mmol/L (21-32) Anion Gap 9 (6-14) Blood Urea Nitrogen 51mg/dL (7-20) Creatinine 0.8mg/dL (0.6-1.0) Estimated GFR (Cockcroft-Gault) 88.2 Glucose Level 147mg/dL (70-99) Calcium Level 9.2mg/dL (8.5-10.1) Total Bilirubin 4.8mg/dL (0.2-1.0) Direct Bilirubin 2.7mg/dL (0.0-0.2) Aspartate Amino Transf (AST/SGOT) 32U/L (15-37) Alanine Aminotransferase (ALT/SGPT) 36U/L (14-59) Alkaline Phosphatase 187U/L (46-116) Creatine Kinase 35U/L (26-192) Total Protein 5.9g/dL (6.4-8.2) Albumin 2.5g/dL (3.4-5.0) Laboratory Tests Test 08/10/16 10:20 08/10/16 15:01 08/10/16 15:18 08/10/16 18:30 O2 Saturation 99% (92-99) 98% (92-99) Arterial Blood pH 7.51 (7.35-7.45) 7.49 (7.35-7.45) Arterial Blood pCO2 at Patient Temp 40mmHg (35-46) 35mmHg (35-46) Arterial Blood pO2 at Patient Temp 161mmHg (65-108) 121mmHg (65-108) Arterial Blood HCO3 31mmol/L (21-28) 26mmol/L (21-28) Arterial Blood Base Excess 7mmol/L (-3-3) 3mmol/L (-3-3) FiO2 35 30 Glucose (Fingerstick) 158mg/dL (70-99) 149mg/dL (70-99) Test 08/11/16 00:54 08/11/16 03:28 08/11/16 03:37 08/11/16 05:30 Glucose (Fingerstick) 138mg/dL (70-99) 119mg/dL (70-99) O2 Saturation 99% (92-99) Arterial Blood pH 7.48 (7.35-7.45) Arterial Blood pCO2 at Patient Temp 39mmHg (35-46) Arterial Blood pO2 at Patient Temp 161mmHg (65-108) Arterial Blood HCO3 29mmol/L (21-28) Arterial Blood Base Excess 5mmol/L (-3-3) FiO2 28 White Blood Count 5.9x10^3/uL (4.0-11.0) Red Blood Count 2.75x10^6/uL (3.50-5.40) Hemoglobin 7.3g/dL (12.0-15.5) Hematocrit 23.3% (36.0-47.0) Mean Corpuscular Volume 85fL (79-100) Mean Corpuscular Hemoglobin 26pg (25-35) Mean Corpuscular Hemoglobin Concent 31g/dL (31-37) Red Cell Distribution Width 23.5% (11.5-14.5) Platelet Count 75x10^3/uL (140-400) Neutrophils (%) (Auto) 69% (31-73) Lymphocytes (%) (Auto) 17% (24-48) Monocytes (%) (Auto) 10% (0-9) Eosinophils (%) (Auto) 3% (0-3) Basophils (%) (Auto) 1% (0-3) Neutrophils # (Auto) 4.1x10^3uL (1.8-7.7) Lymphocytes # (Auto) 1.0x10^3/uL (1.0-4.8) Monocytes # (Auto) 0.6x10^3/uL (0.0-1.1) Eosinophils # (Auto) 0.2x10^3/uL (0.0-0.7) Basophils # (Auto) 0.0x10^3/uL (0.0-0.2) Sodium Level 156mmol/L (136-145) Potassium Level 3.2mmol/L (3.5-5.1) Chloride Level 116mmol/L (98-107) Carbon Dioxide Level 31mmol/L (21-32) Anion Gap 9 (6-14) Blood Urea Nitrogen 51mg/dL (7-20) Creatinine 0.8mg/dL (0.6-1.0) Estimated GFR (Cockcroft-Gault) 88.2 Glucose Level 147mg/dL (70-99) Calcium Level 9.2mg/dL (8.5-10.1) Total Bilirubin 4.8mg/dL (0.2-1.0) Direct Bilirubin 2.7mg/dL (0.0-0.2) Aspartate Amino Transf (AST/SGOT) 32U/L (15-37) Alanine Aminotransferase (ALT/SGPT) 36U/L (14-59) Alkaline Phosphatase 187U/L (46-116) Creatine Kinase 35U/L (26-192) Total Protein 5.9g/dL (6.4-8.2) Albumin 2.5g/dL (3.4-5.0) Test 08/11/16 05:34 Glucose (Fingerstick) 135mg/dL (70-99) Microbiology 08/01/16 Blood Culture - Final, Complete NO GROWTH AFTER 5 DAYS 07/15/16 Urine Culture - Final, Complete 07/15/16 Urine Culture Result 1 (ROYA) - Final, Complete 07/15/16 Urine Culture Result 2 (ROYA) - Final, Complete 07/15/16 Antimicrobic Susceptibility - Final, Complete 07/29/16 Aerobic Culture - Final, Complete 07/29/16 Aerobic Culture Result 1 (ROYA) - Final, Complete Medications Current Medications Piperacillin Sod/ Tazobactam Sod/ Sodium Chloride (Zosyn/Iv Sodium Chloride 0.9 % 100ml) 100 ml @ 200 mls/hr 1X ONCE IV Last administered on 07/15/16 22:56; Start 07/15/16 at 22:00; Stop 07/15/16 at 22:29; Status DC Fentanyl Citrate 50 mcg 50 mcg PRN Q15MIN PRN IV PAIN GREATER THAN 3/10 Last administered on 07/16/16 00:30; Start 07/15/16 at 21:45; Stop 07/16/16 at 02:00; Status DC Sodium Chloride 1,000 ml @ 1,000 mls/hr 1X ONCE IV Last administered on 21:59; Start 07/15/16 at 22:00; Stop 07/15/16 at 22:59; Status DC Sodium Chloride (Iv Sodium Chloride 0.9% 500ml Bag) 500 ml @ 500 mls/hr 1X ONCE IV Last administered on 07/15/16 22:00; Start 07/15/16 at 22:00; Stop at 22:59; Status DC Ondansetron HCl (Zofran) 4 mg PRN Q8HRS PRN IV NAUSEA/VOMITING; Start 07/15/16 at 23:30; Stop 07/16/16 at 08:52; Status DC Fentanyl Citrate 50 mcg 50 mcg PRN Q2HR PRN IV SEVERE PAIN Last administered on 07/16/16 08:10; Start 07/15/16 at 23:30; Stop 07/16/16 at 08:52; Status DC Sodium Chloride (Iv Sodium Chloride 0.9% 1000ml Bag) 1,000 ml @ 150 mls/hr Q6H40M IV Last administered on 07/15/16 02:00; Start 07/15/16 at 23:45; Stop 07/16/16 at 08:52; Status DC Acetaminophen (Tylenol) 650 mg PRN Q4HRS PRN PO FEVER; Start 07/15/16 at 23:30; Stop 07/16/16 at 23:29; Status DC Info (Do NOT chart on this placeholder) 1 each PRN DAILY PRN MC NEEDS VERIFICATION; Start 07/16/16 at 03:00; Status Cancel Acetaminophen 650 mg 650 mg PRN Q4HRS PRN PO MILD PAIN / TEMP Last administered on 07/28/16 07:42; Start 07/16/16 at 08:45; Stop 07/29/16 at 08:33 ; Status DC Piperacillin Sod/ Tazobactam Sod 3.375 gm/Sodium Chloride 50 ml @ 100 mls/hr Q6HRS IV Last administered on 07/18/16 05:50; Start 07/16/16 at 10:00; Stop 07/18 at 13:28; Status DC Linezolid (Zyvox Premix) 300 ml @ 300 mls/hr Q12HR IV Last administered on 07/18 08:34; Start 07/16/16 at 10:00; Stop 07/18/16 at 13:28; Status DC Hydromorphone HCl (Dilaudid) 2 mg PRN Q4HRS PRN IV MODERATE PAIN Last administered on 08/09/16 06:39; Start 07/16/16 at 08:45; Stop 08/09/16 at 17:35 ; Status DC Hydromorphone HCl (Dilaudid) 4 mg PRN Q4HRS PRN IV SEVERE PAIN Last administered on 07/30/16 09:23; Start 07/16/16 at 08:45; Stop 07/31/16 at 15:01 ; Status DC Pantoprazole Sodium (Protonix) 40 mg DAILYAC PO Last administered on 07/27/16 11:11; Start 07/16/16 at 09:30; Stop 07/29/16 at 08:44; Status DC Hyoscyamine (Anaspaz) 0.125 mg Q6HRS PO Last administered on 07/20/16 05:20; Start 07/16/16 at 12:00; Stop 07/20/16 at 08:58; Status DC Phenazopyridine HCl (Pyridium) 200 mg TID PO Last administered on 07/20/16 08: 25; Start 07/16/16 at 09:30; Stop 07/20/16 at 08:58; Status DC Lorazepam (Ativan) 0.5 mg PRN BID PRN PO ANXIETY / AGITATION Last administered on 07/29/16 02:16; Start 07/16/16 at 08:45; Stop 07/31/16 at 15:01; Status DC Simethicone (Gas-X) 80 mg PRN Q4HRS PRN PO GAS / BLOATING Last administered on 07/24/16 22:30; Start 07/16/16 at 08:45; Stop 07/31/16 at 15:01; Status DC Zolpidem Tartrate 5 mg 5 mg PRN QHS PRN PO INSOMNIA Last administered on 23:14; Start 07/16/16 at 08:45; Stop 07/31/16 at 15:01; Status DC Potassium Chloride/Dextrose/ Sod Cl 1,000 ml @ 80 mls/hr [id number] IV Last administered on 07/16/16 10:54; Start 07/16/16 at 09:30; Stop 07/16/16 at 21:59; Status DC Fluconazole/ Sodium Chloride (Diflucan 200mg/ 100ml Premix) 100 ml @ 100 mls/ hr Q24H IV Last administered on 07/18/16 11:43; Start 07/16/16 at 11:00; Stop at 13:28; Status DC Info 1 each 1 each PRN DAILY PRN MC SEE COMMENTS Last administered on 12:41; Start 07/16/16 at 10:00; Stop 08/01/16 at 11:24; Status DC Sodium Chloride 220 meq/Sodium Acetate 90 meq/ Potassium Chloride 50 meq/ Potassium Acetate 15 meq/Potassium Phosphate 10 mmol/ Magnesium Sulfate 50 meq/ Calcium Gluconate 6 meq/ Multivitamins/ Minerals 10 ml/ Chromium/Copper/ Manganese/Seleni/ Zn 1 ml/Total Parenteral Nutrition/Amino Acids/Dextro... 1, 920 ml @ 80 mls/hr TPN CONT IV ; Start 07/16/16 at 22:00; Stop 07/16/16 at 22:00 ; Status DC Sodium Chloride/ Sodium Acetate/ Potassium Chloride/ Potassium Acetate/ Potassium Phosphate/ Magnesium Sulfate/ Calcium Gluconate/ Multivitamins/ Minerals/Chromium/ Copper/Manganese/ Seleni/Zn/Total Parenteral Nutrition/Amino Acids/Dextrose/ Fat Emulsion Intravenous (Sodium Chlori... 1,820 ml @ 75.833 mls/ hr TPN CONT IV Last administered on 07/16/16 21:03; Start 07/16/16 at 22: 00; Stop 07/17/16 at 21:59; Status DC Ondansetron HCl (Zofran) 4 mg PRN Q6HRS PRN IV NAUSEA/VOMITING Last administered on 07/21/16 08:48; Start 07/16/16 at 17:15; Stop 07/31/16 at 15:01; Status DC Diphenhydramine HCl (Benadryl) 25 mg PRN Q6HRS PRN PO ITCHING Last administered on 07/25/16 23:38; Start 07/16/16 at 17:45; Stop 07/31/16 at 15:01 ; Status DC Lidocaine (Xylocaine) 1 sang BID TP Last administered on 08/10/16 20:35; Start 07/17/16 at 09:00 Zinc Oxide 1 sang 1 sang BID TP Last administered on 08/10/16 20:35; Start at 09:30 Sodium Chloride/ Sodium Acetate/ Potassium Chloride/ Potassium Acetate/ Potassium Phosphate/ Magnesium Sulfate/ Calcium Gluconate/ Multivitamins/ Minerals/Chromium/ Copper/Manganese/ Seleni/Zn/Total Parenteral Nutrition/Amino Acids/Dextrose/ Fat Emulsion Intravenous (Sodium Chlori... 1,920 ml @ 80 mls/ hr TPN CONT IV Last administered on 07/17/16 22:13; Start 07/17/16 at 22:00; Stop 07/18/16 at 21:59; Status DC Furosemide 40 mg 40 mg 1X ONCE IVP Last administered on 07/18/16 11:43; Start 07/18/16 at 11:00; Stop 07/18/16 at 11:07; Status DC Sodium Chloride 220 meq/Sodium Acetate 90 meq/ Potassium Chloride 50 meq/ Potassium Acetate 15 meq/Potassium Phosphate 10 mmol/ Magnesium Sulfate 50 meq/ Calcium Gluconate 3 meq/ Multivitamins/ Minerals 10 ml/ Chromium/Copper/ Manganese/Seleni/ Zn 1 ml/Total Parenteral Nutrition/Amino Acids/Dextro... 1, 920 ml @ 80 mls/hr TPN CONT IV Last administered on 07/19/16 00:03; Start 07/18/16 at 22:00; Stop 07/19/16 at 21:59; Status DC Meropenem 1 gm/ Sodium Chloride 100 ml @ 200 mls/hr Q8HRS IV Last administered on 07/20/16 05:21; Start 07/18/16 at 14:00; Stop 07/20/16 at 11:25; Status DC Micafungin Sodium 100 mg/Dextrose 100 ml @ 100 mls/hr Q24H IV Last administered on 07/19/16 15:05; Start 07/18/16 at 14:00; Stop 07/20/16 at 11:25; Status DC Daptomycin/Sodium Chloride (Cubicin/Iv Sodium Chloride 0.9% 50ml) 50 ml @ 100 mls/hr Q24H IV Last administered on 07/19/16 16:56; Start 07/18/16 at 15:00; Stop 07/20/16 at 11:25; Status DC Alteplase, Recombinant (Cathflo) 2 mg 1X ONCE INT CAT Last administered on 07/19 06:24; Start 07/19/16 at 07:00; Stop 07/19/16 at 07:01; Status DC Gentamicin Sulfate 1 each 1 each PRN DAILY PRN MC SEE COMMENTS Last administered on 07/25/16 15:31; Start 07/19/16 at 12:15; Stop 07/25/16 at 16:14 ; Status DC Gentamicin Sulfate/Sodium Chloride (Iv Sodium Chloride 0.9% 100ml) 106.75 ml @ 106.75 mls/hr Q24H IV Last administered on 07/25/16 15:31; Start 07/19/16 at 13 :00; Stop 07/25/16 at 16:12; Status DC Gentamicin Sulfate 1 each 1 each 1X ONCE MC Last administered on 07/19/16 23: 00; Start 07/19/16 at 23:00; Stop 07/19/16 at 23:01; Status DC Sodium Chloride/ Sodium Acetate/ Potassium Chloride/ Potassium Acetate/ Potassium Phosphate/ Magnesium Sulfate/ Calcium Gluconate/ Multivitamins/ Minerals/Chromium/ Copper/Manganese/ Seleni/Zn/Total Parenteral Nutrition/Amino Acids/Dextrose/ Fat Emulsion Intravenous (Sodium Chlori... 1,920 ml @ 80 mls/ hr TPN CONT IV Last administered on 07/19/16 20:51; Start 07/19/16 at 22:00; Stop 07/20/16 at 21:59; Status DC Hyoscyamine (Anaspaz) 0.125 mg PRN Q6HRS PRN PO BLADDER SPASM; Start 07/20/16 at 09:00; Stop 07/31/16 at 15:01; Status DC Phenazopyridine HCl 200 mg 200 mg PRN TID PRN PO BLADDER SPASM Last administered on 07/21/16 20:14; Start 07/20/16 at 09:00; Stop 07/31/16 at 15:01; Status DC Linezolid 300 ml @ 300 mls/hr Q12HR IV Last administered on 07/25/16 09:02; Start 07/20/16 at 12:00; Stop 07/25/16 at 16:12; Status DC Sodium Chloride 220 meq/Sodium Acetate 90 meq/ Potassium Chloride 50 meq/ Potassium Acetate 15 meq/Potassium Phosphate 10 mmol/ Magnesium Sulfate 50 meq/ Calcium Gluconate 3 meq/ Multivitamins/ Minerals 10 ml/ Chromium/Copper/ Manganese/Seleni/ Zn 1 ml/Total Parenteral Nutrition/Amino Acids/Dextro... 1, 920 ml @ 80 mls/hr TPN CONT IV Last administered on 07/20/16 21:30; Start 07/20/16 at 22:00; Stop 07/21/16 at 21:59; Status DC Sodium Chloride/ Sodium Acetate/ Potassium Chloride/ Potassium Acetate/ Potassium Phosphate/ Magnesium Sulfate/ Multivitamins/ Minerals/Chromium/ Copper /Manganese/ Seleni/Zn/Total Parenteral Nutrition/Amino Acids/Dextrose/ Fat Emulsion Intravenous (Sodium Chloride/ Potass... 1,920 ml @ 80 mls/hr TPN CONT IV Last administered on 07/21/16 22:05; Start 07/21/16 at 22:00; Stop at 21:59; Status DC Alteplase, Recombinant 2 mg 2 mg PRN DAILY PRN INT CAT INFLAMMATION Last administered on 07/27/16 11:31; Start 07/21/16 at 15:00 Sodium Chloride 220 meq/Sodium Acetate 90 meq/ Potassium Chloride 50 meq/ Potassium Acetate 15 meq/Potassium Phosphate 10 mmol/ Magnesium Sulfate 50 meq/ Multivitamins/ Minerals 10 ml/ Chromium/Copper/ Manganese/Seleni/ Zn 1 ml/Total Parenteral Nutrition/Amino Acids/Dextrose/ Fat Emuls... 1,920 ml @ 80 mls/hr TPN CONT IV Last administered on 07/22/16 20:53; Start 07/22/16 at 22:00; Stop 07/23/16 at 21:59; Status DC Sodium Chloride/ Sodium Acetate/ Potassium Chloride/ Potassium Acetate/ Potassium Phosphate/ Magnesium Sulfate/ Multivitamins/ Minerals/Chromium/ Copper /Manganese/ Seleni/Zn/Total Parenteral Nutrition/Amino Acids/Dextrose/ Fat Emulsion Intravenous (Sodium Chloride/ Potass... 1,920 ml @ 80 mls/hr TPN CONT IV Last administered on 07/23/16 21:16; Start 07/23/16 at 22:00; Stop 07/24 at 21:59; Status DC Gentamicin Sulfate 1 each 1 each 1X ONCE MC ; Start 07/23/16 at 22:00; Stop 07/23 at 22:01; Status Cancel Sodium Chloride/ Sodium Acetate/ Potassium Chloride/ Potassium Acetate/ Potassium Phosphate/ Magnesium Sulfate/ Multivitamins/ Minerals/Chromium/ Copper /Manganese/ Seleni/Zn/Total Parenteral Nutrition/Amino Acids/Dextrose/ Fat Emulsion Intravenous (Sodium Chloride/ Potass... 1,920 ml @ 80 mls/hr TPN CONT IV Last administered on 07/24/16 21:15; Start 07/24/16 at 22:00; Stop 04/30 at 21:59; Status DC Gentamicin Sulfate 1 each 1X ONCE MC ; Start 07/25/16 at 12:30; Stop 07/25/16 at 12:31; Status Cancel Amlodipine Besylate 5 mg 5 mg DAILY PO Last administered on 07/27/16 11:12; Start 07/25/16 at 12:00; Stop 07/29/16 at 08:44; Status DC Sodium Chloride 220 meq/Sodium Acetate 90 meq/ Potassium Chloride 30 meq/ Potassium Acetate 15 meq/Potassium Phosphate 10 mmol/ Magnesium Sulfate 50 meq/ Multivitamins/ Minerals 10 ml/ Chromium/Copper/ Manganese/Seleni/ Zn 1 ml/Total Parenteral Nutrition/Amino Acids/Dextrose/ Fat Emuls... 1,920 ml @ 80 mls/hr TPN CONT IV Last administered on 07/25/16 22:25; Start 07/25/16 at 22:00; Stop 07/26/16 at 21:59; Status DC Sodium Chloride/ Sodium Acetate/ Potassium Chloride/ Potassium Acetate/ Potassium Phosphate/ Magnesium Sulfate/ Multivitamins/ Minerals/Chromium/ Copper /Manganese/ Seleni/Zn/Total Parenteral Nutrition/Amino Acids/Dextrose/ Fat Emulsion Intravenous (Sodium Chloride/ Potass... 1,920 ml @ 80 mls/hr TPN CONT IV Last administered on 07/26/16 23:16; Start 07/26/16 at 22:00; Stop at 21:59; Status DC Furosemide 20 mg 20 mg 1X ONCE IVP Last administered on 07/27/16 11:31; Start 07/27/16 at 09:00; Stop 07/27/16 at 09:01; Status DC Daptomycin 340 mg/ Sodium Chloride 50 ml @ 100 mls/hr Q24H IV Last administered on 07/29/16 15:05; Start 07/27/16 at 13:00; Stop 07/30/16 at 07:25 ; Status DC Piperacillin Sod/ Tazobactam Sod 3.375 gm/Sodium Chloride 50 ml @ 100 mls/hr Q6HRS IV Last administered on 07/30/16 05:30; Start 07/27/16 at 12:30; Stop at 07:25; Status DC Fluconazole/ Sodium Chloride 100 ml @ 100 mls/hr Q24H IV Last administered on 07/28/16 13:32; Start 07/27/16 at 13:00; Stop 07/29/16 at 00:53; Status DC Sodium Chloride 1,000 ml @ 1,000 mls/hr 1X ONCE IV Last administered on 12:34; Start 07/27/16 at 12:30; Stop 07/27/16 at 13:29; Status DC Sodium Chloride 220 meq/Sodium Acetate 90 meq/ Potassium Chloride 30 meq/ Potassium Acetate 15 meq/Potassium Phosphate 10 mmol/ Magnesium Sulfate 45 meq/ Multivitamins/ Minerals 10 ml/ Chromium/Copper/ Manganese/Seleni/ Zn 1 ml/Total Parenteral Nutrition/Amino Acids/Dextrose/ Fat Emuls... 1,920 ml @ 80 mls/hr TPN CONT IV Last administered on 07/27/16 22:38; Start 07/27/16 at 22:00; Stop 07/28/16 at 21:59; Status DC Sodium Chloride (Iv Sodium Chloride 0.9% 1000ml Bag) 1,000 ml @ 45 mls/hr [id number] IV Last administered on 07/28/16 03:24; Start 07/27/16 at 17:00; Stop 07/28/16 at 10:27; Status DC Acetaminophen 650 mg 650 mg PRN Q6HRS PRN [place] fever Last administered on 03:57; Start 07/27/16 at 16:30; Stop 07/29/16 at 08:33; Status DC Sodium Chloride 1,000 ml @ 427.5 mls/ hr [id number] IV Last administered on 19:30; Start 07/27/16 at 19:30; Stop 07/27/16 at 23:30; Status DC Sodium Chloride 220 meq/Sodium Acetate 90 meq/ Potassium Chloride 30 meq/ Potassium Acetate 15 meq/Potassium Phosphate 10 mmol/ Magnesium Sulfate 45 meq/ Multivitamins/ Minerals 10 ml/ Chromium/Copper/ Manganese/Seleni/ Zn 1 ml/Total Parenteral Nutrition/Amino Acids/Dextrose/ Fat Emuls... 1,920 ml @ 80 mls/hr TPN CONT IV Last administered on 07/28/16 21:43; Start 07/28/16 at 22:00; Stop 07/29/16 at 21:59; Status DC Micafungin Sodium/ Dextrose (Mycamine) 100 ml @ 100 mls/hr Q24H IV Last administered on 08/11/16 00:56; Start 07/29/16 at 01:00 Lorazepam (Ativan) 0.05 mg PRN Q4HRS PRN IV ANXIETY / AGITATION; Start at 02:30; Stop 07/29/16 at 02:48; Status DC Lorazepam (Ativan) 0.5 mg PRN Q4HRS PRN IV ANXIETY / AGITATION Last administered on 08/09/16 17:19; Start 07/29/16 at 03:00 Acetaminophen (Tylenol) 650 mg PRN Q4HRS PRN [place] MILD PAIN / TEMP; Start at 08:30 Ketorolac Tromethamine (Toradol) 30 mg PRN Q6HRS PRN IV PAIN/FEVER Last administered on 07/30/16 00:50; Start 07/29/16 at 08:30; Stop 07/30/16 at 13:01 ; Status DC Pantoprazole Sodium 40 mg 40 mg DAILYAC IVP Last administered on 08/10/16 08: 13; Start 07/29/16 at 09:00 Sodium Chloride 1,000 ml @ 45 mls/hr [id number] IV Last administered on 09:17; Start 07/29/16 at 08:45; Stop 07/31/16 at 15:01; Status DC Sodium Chloride/ Sodium Acetate/ Potassium Chloride/ Potassium Acetate/ Potassium Phosphate/ Magnesium Sulfate/ Multivitamins/ Minerals/Chromium/ Copper /Manganese/ Seleni/Zn/Total Parenteral Nutrition/Amino Acids/Dextrose/ Fat Emulsion Intravenous (Sodium Chloride/ Potass... 1,920 ml @ 80 mls/hr TPN CONT IV Last administered on 07/29/16 22:06; Start 07/29/16 at 22:00; Stop at 21:59; Status DC Lidocaine/Sodium Bicarbonate 20 ml 20 ml STK-MED ONCE IJ ; Start 07/29/16 at 13: 13; Stop 07/29/16 at 13:14; Status DC Heparin Sodium/ Sodium Chloride 500 ml @ As Directed STK-MED ONCE .ROUTE ; Start 07/29/16 at 13:13; Stop 07/29/16 at 13:14; Status DC Lidocaine/ Epinephrine (Xylocaine 1%-Epi 1:100,000) 20 ml STK-MED ONCE .ROUTE ; Start 07/29/16 at 13:22; Stop 07/29/16 at 13:23; Status DC Midazolam HCl (Versed) 5 mg STK-MED ONCE .ROUTE ; Start 07/29/16 at 13:32; Stop 07/29/16 at 13:33; Status DC Fentanyl Citrate (Fentanyl 5ml Vial) 250 mcg STK-MED ONCE .ROUTE ; Start at 13:32; Stop 07/29/16 at 13:33; Status DC Heparin Sodium/ Sodium Chloride 1,000 unit 1X ONCE IART Last administered on 13:45; Start 07/29/16 at 13:45; Stop 07/29/16 at 13:48; Status DC Midazolam HCl (Versed) 5 mg 1X ONCE IV Last administered on 07/29/16 13:45; Start 07/29/16 at 13:45; Stop 07/29/16 at 13:48; Status DC Fentanyl Citrate (Fentanyl 5ml Vial) 250 mcg 1X ONCE IV Last administered on 13:45; Start 07/29/16 at 13:45; Stop 07/29/16 at 13:48; Status DC Lidocaine/ Epinephrine 20 ml 20 ml 1X ONCE IJ Last administered on 07/29/16 13:45; Start 07/29/16 at 13:45; Stop 07/29/16 at 13:48; Status DC Sodium Chloride 220 meq/Sodium Acetate 90 meq/ Potassium Chloride 15 meq/ Potassium Acetate 30 meq/Potassium Phosphate 10 mmol/ Magnesium Sulfate 45 meq/ Multivitamins/ Minerals 10 ml/ Chromium/Copper/ Manganese/Seleni/ Zn 1 ml/Total Parenteral Nutrition/Amino Acids/Dextrose/ Fat Emuls... 1,920 ml @ 80 mls/hr TPN CONT IV ; Start 07/30/16 at 22:00; Stop 07/31/16 at 21:59; Status DC Norepinephrine Bitartrate 8 mg/ Sodium Chloride 258 ml @ 1.93 mls/hr 1X ONCE IV Last administered on 07/30/16 11:17; Start 07/30/16 at 11:15; Stop at 15:43; Status DC Norepinephrine Bitartrate/Sodium Chloride (Levophed Vial/ Iv Sodium Chloride 0.9 % 250ml) 258 ml @ 0 mls/hr CONT PRN IV SEE I/O RECORD Last administered on 08/02 19:54; Start 07/30/16 at 11:15; Stop 08/04/16 at 09:29; Status DC Furosemide 60 mg 60 mg 1X ONCE IVP Last administered on 07/30/16 11:14; Start 07/30/16 at 11:15; Stop 07/30/16 at 11:16; Status DC Sodium Chloride 500 ml @ 500 mls/hr Q1H IV Last administered on 07/30/16 17: 04; Start 07/30/16 at 14:30; Stop 07/30/16 at 15:29; Status DC Albumin Human 100 ml @ 100 mls/hr Q8HRS IV Last administered on 07/31/16 05: 37; Start 07/30/16 at 14:30; Stop 07/31/16 at 06:59; Status DC Furosemide/Sodium Chloride (Lasix Drip/Iv Sodium Chloride 0.9% 100ml) 100 ml @ 0 mls/hr CONT PRN IV SEE I/O RECORD Last administered on 07/31/16 03:17; Start 07/30/16 at 14:30; Stop 08/01/16 at 13:19; Status DC Ondansetron HCl (Zofran) 8 mg PRN Q8HRS PRN IV NAUSEA/VOMITING Last administered on 07/30/16 14:38; Start 07/30/16 at 14:30 Sodium Bicarbonate 50 meq 50 meq 1X ONCE IV Last administered on 07/30/16 14: 43; Start 07/30/16 at 14:30; Stop 07/30/16 at 14:31; Status DC Heparin Sodium/ Sodium Chloride 500 ml @ As Directed STK-MED ONCE .ROUTE ; Start 07/30/16 at 14:49; Stop 07/30/16 at 14:50; Status DC Lidocaine HCl 20 ml STK-MED ONCE .ROUTE ; Start 07/30/16 at 14:49; Stop at 14:50; Status DC Midazolam HCl (Versed) 2 mg STK-MED ONCE .ROUTE ; Start 07/30/16 at 15:19; Stop 07/30/16 at 15:20; Status DC Heparin Sodium/ Sodium Chloride 1,000 unit 1X ONCE IART Last administered on 15:44; Start 07/30/16 at 15:45; Stop 07/30/16 at 15:46; Status DC Midazolam HCl (Versed) 1.5 mg 1X ONCE IV Last administered on 07/30/16 15:44 ; Start 07/30/16 at 15:45; Stop 07/30/16 at 15:46; Status DC Lidocaine HCl 20 ml 1X ONCE IJ Last administered on 07/30/16 15:44; Start at 15:45; Stop 07/30/16 at 15:46; Status DC Heparin Sodium (Porcine) 17813 unit 10,000 unit STK-MED ONCE .ROUTE ; Start at 15:54; Stop 07/30/16 at 15:55; Status DC Fentanyl Citrate 30 ml @ 0 mls/hr CONT PRN PRN IV PROTOCOL Last administered on 08/08/16 10:21; Start 07/30/16 at 16:45; Stop 08/08/16 at 11:03; Status DC Sodium Bicarbonate/ Dextrose 1,150 ml @ 125 mls/hr 1X ONCE IV Last administered on 07/30/16 18:34; Start 07/30/16 at 17:30; Stop 07/31/16 at 02:41 ; Status DC Succinylcholine Chloride 200 mg 200 mg STK-MED ONCE .ROUTE ; Start 07/30/16 at 19:47; Stop 07/30/16 at 19:48; Status DC Propofol 100 ml @ As Directed STK-MED ONCE IV ; Start 07/30/16 at 19:48; Stop 07/30/16 at 19:49; Status DC Midazolam HCl (Versed 100mg/ 100ml Premix) 100 ml @ 0 mls/hr CONT PRN IV SEE I/ O RECORD Last administered on 08/03/16 12:18; Start 07/30/16 at 21:15 Sodium Bicarbonate 50 meq 50 meq 1X ONCE IV Last administered on 07/30/16 22: 15; Start 07/30/16 at 22:30; Stop 07/30/16 at 22:31; Status DC Dopamine HCl/ Dextrose 250 ml @ 11.513 mls/ hr CONT PRN IV SEE I/O RECORD Last administered on 07/31/16 20:16; Start 07/30/16 at 22:15; Stop 08/04/16 at 09:29; Status DC Sodium Bicarbonate/ Dextrose 1,150 ml @ 125 mls/hr Q9H12M IV Last administered on 08/01/16 09:30; Start 07/31/16 at 03:00; Stop 08/01/16 at 13:19 ; Status DC Propofol (Diprivan) 1,000 mg STK-MED ONCE IV ; Start 07/30/16 at 20:00; Stop at 08:16; Status DC Succinylcholine Chloride 200 mg 200 mg STK-MED ONCE .ROUTE ; Start 07/30/16 at 20:00; Stop 07/31/16 at 08:16; Status DC Tigecycline 50 mg/ Sodium Chloride 50 ml @ 100 mls/hr Q12HR IV Last administered on 08/04/16 09:01; Start 07/31/16 at 21:00; Stop 08/04/16 at 10:00 ; Status DC Tigecycline/ Sodium Chloride (Tygacil/Iv Sodium Chloride 0.9% 100ml) 100 ml @ 200 mls/hr 1X ONCE IV Last administered on 07/31/16 09:22; Start 07/31/16 at 09:00; Stop 07/31/16 at 09:29; Status DC Darbepoetin Sarbjit 60 mcg 60 mcg WEEKLYHS SQ Last administered on 08/07/16 21:41 ; Start 07/31/16 at 21:00 Albumin Human 100 ml @ 100 mls/hr 1X ONCE IV Last administered on 07/31/16 11:40; Start 07/31/16 at 11:15; Stop 07/31/16 at 12:14; Status DC Albumin Human 100 ml @ 100 mls/hr 1X ONCE IV Last administered on 07/31/16 12:03; Start 07/31/16 at 11:15; Stop 07/31/16 at 12:14; Status DC Sodium Chloride (Iv Sodium Chloride 0.9% 1000ml Bag) 1,000 ml @ 1,000 mls/hr Q1H PRN IV hypotension; Start 07/31/16 at 11:33; Stop 07/31/16 at 17:32; Status DC Info (PHARMACY MONITORING -- do not chart) 1 each PRN DAILY PRN MC SEE COMMENTS ; Start 07/31/16 at 11:45 Info (PHARMACY MONITORING -- do not chart) 1 each PRN DAILY PRN MC SEE COMMENTS ; Start 07/31/16 at 11:45; Status UNV Hydrocortisone Sodium Succinate (Solu-Cortef) 100 mg Q8HRS IV Last administered on 08/04/16 06:16; Start 08/01/16 at 07:00; Stop 08/04/16 at 09:29 ; Status DC Albuterol/ Ipratropium (Duoneb) 3 ml RTQID NEB Last administered on 08/11/16 08:49; Start 08/01/16 at 08:00 Albuterol/ Ipratropium 3 ml 3 ml STK-MED ONCE .ROUTE Last administered on 07:34; Start 08/01/16 at 06:59; Stop 08/01/16 at 07:00; Status DC Sodium Chloride 1,000 ml @ 1,000 mls/hr Q1H PRN IV hypotension; Start 08/01/16 at 06:57; Stop 08/01/16 at 12:56; Status DC Albumin Human (Albuminar) 200 ml @ 200 mls/hr 1X PRN PRN IV Hypotension; Start 08/01/16 at 07:00; Stop 08/01/16 at 12:59; Status DC Info (PHARMACY MONITORING -- do not chart) 1 each PRN DAILY PRN MC SEE COMMENTS ; Start 08/01/16 at 07:00; Status UNV Info 1 each 1 each PRN DAILY PRN MC SEE COMMENTS Last administered on 14:40; Start 08/01/16 at 13:30 Sodium Chloride 220 meq/Sodium Acetate 90 meq/ Potassium Chloride 15 meq/ Potassium Acetate 30 meq/Potassium Phosphate 10 mmol/ Magnesium Sulfate 45 meq/ Multivitamins/ Minerals 10 ml/ Chromium/Copper/ Manganese/Seleni/ Zn 1 ml/Total Parenteral Nutrition/Amino Acids/Dextrose/ Fat Emuls... 1,920 ml @ 80 mls/hr TPN CONT IV Last administered on 08/01/16 21:56; Start 08/01/16 at 22:00; Stop 08/02/16 at 21:59; Status DC Potassium Chloride (KCl Premix 20meq) 50 ml @ 50 mls/hr Q1H IV Last administered on 08/01/16 19:05; Start 08/01/16 at 17:00; Stop 08/01/16 at 18:59 ; Status DC Insulin Aspart 0-6 UNITS TIDWMEALS SQ Last administered on 08/02/16 11:33; Start 08/02/16 at 12:00; Stop 08/02/16 at 14:34; Status DC Sodium Chloride 220 meq/Sodium Acetate 90 meq/ Potassium Chloride 15 meq/ Potassium Acetate 30 meq/Magnesium Sulfate 45 meq/ Multivitamins/ Minerals 10 ml / Chromium/Copper/ Manganese/Seleni/ Zn 1 ml/Total Parenteral Nutrition/Amino Acids/Dextrose/ Fat Emulsion Intravenous 1,920 ml @ 80 mls/hr TPN CONT IV Last administered on 08/02/16 21:34; Start 08/02/16 at 22:00; Stop 08/03/16 at 21:59; Status DC Levofloxacin/ Dextrose 150 ml @ 100 mls/hr 1X ONCE IV Last administered on 14:35; Start 08/02/16 at 14:00; Stop 08/02/16 at 15:29; Status DC Daptomycin/Sodium Chloride (Cubicin/Iv Sodium Chloride 0.9% 50ml) 50 ml @ 100 mls/hr ONCE ONCE IV Last administered on 08/02/16 14:34; Start 08/02/16 at 15 :00; Stop 08/02/16 at 15:29; Status DC Insulin Aspart 0-6 UNITS Q6HRS SQ Last administered on 08/10/16 15:21; Start 08/02/16 at 18:00 Sodium Chloride (Iv Sodium Chloride 0.9% 1000ml Bag) 1,000 ml @ 1,000 mls/hr Q1H PRN IV hypotension; Start 08/03/16 at 07:26; Stop 08/03/16 at 13:25; Status DC Diphenhydramine HCl (Benadryl) 25 mg 1X PRN PRN IV ITCHING; Start 08/03/16 at 07:30; Stop 08/04/16 at 07:29; Status DC Diphenhydramine HCl (Benadryl) 25 mg 1X PRN PRN IV ITCHING; Start 08/03/16 at 07:30; Stop 08/04/16 at 07:29; Status DC Sodium Chloride (Normal Saline Flush) 10 ml 1X PRN PRN IV AP catheter pack; Start 08/03/16 at 07:30; Stop 08/04/16 at 07:29; Status DC Sodium Chloride 10 ml 10 ml 1X PRN PRN IV FLIGHT SUPERINTENDENT catheter pack; Start 08/03/16 at 07:30; Stop 08/04/16 at 07:29; Status DC Sodium Chloride (Iv Sodium Chloride 0.9% 1000ml Bag) 1,000 ml @ 400 mls/hr Q2H30M PRN IV PATENCY; Start 08/03/16 at 07:26; Stop 08/03/16 at 19:25; Status DC Info 1 each 1 each PRN DAILY PRN MC SEE COMMENTS; Start 08/03/16 at 07:30; Status UNV Albumin Human 200 ml @ 200 mls/hr Q2HR IV Last administered on 08/03/16 10:00 ; Start 08/03/16 at 08:44; Stop 08/03/16 at 10:59; Status DC Sodium Chloride 160 meq/Sodium Acetate 60 meq/ Potassium Chloride 15 meq/ Potassium Acetate 30 meq/Magnesium Sulfate 25 meq/ Multivitamins/ Minerals 10 ml / Chromium/Copper/ Manganese/Seleni/ Zn 1 ml/Total Parenteral Nutrition/Amino Acids/Dextrose/ Fat Emulsion Intravenous 1,500 ml @ 62.5 mls/hr TPN CONT IV Last administered on 08/03/16 22:52; Start 08/03/16 at 22:00; Stop 08/04/16 at 21:59; Status DC Levofloxacin/ Dextrose 100 ml @ 100 mls/hr 1X ONCE IV Last administered on 10:50; Start 08/04/16 at 07:30; Stop 08/04/16 at 08:30; Status DC Daptomycin 450 mg/ Sodium Chloride 50 ml @ 100 mls/hr ONCE ONCE IV Last administered on 08/04/16 09:55; Start 08/04/16 at 08:00; Stop 08/04/16 at 08:30 ; Status DC Tigecycline/ Sodium Chloride (Tygacil/Iv Sodium Chloride 0.9% 50ml) 50 ml @ 100 mls/hr Q12HR IV Last administered on 08/09/16 07:20; Start 08/04/16 at 21: 00; Stop 08/09/16 at 09:42; Status DC Hydrocortisone Sodium Succinate 50 mg 50 mg Q8HRS IV Last administered on 05:39; Start 08/04/16 at 14:00; Stop 08/05/16 at 11:12; Status DC Furosemide 100 mg/ Sodium Chloride 100 ml @ 0 mls/hr CONT PRN IV SEE I/O RECORD Last administered on 08/09/16 06:43; Start 08/04/16 at 11:30; Stop 08/09 at 11:31; Status DC Sodium Chloride 160 meq/Sodium Acetate 60 meq/ Potassium Chloride 15 meq/ Potassium Acetate 30 meq/Magnesium Sulfate 25 meq/ Multivitamins/ Minerals 10 ml / Chromium/Copper/ Manganese/Seleni/ Zn 1 ml/Total Parenteral Nutrition/Amino Acids/Dextrose/ Fat Emulsion Intravenous 1,500 ml @ 62.5 mls/hr TPN CONT IV Last administered on 08/04/16 21:45; Start 08/04/16 at 22:00; Stop 08/06/16 at 08:48; Status DC Sodium Chloride 1,000 ml @ 1,000 mls/hr Q1H PRN IV hypotension; Start 08/04/16 at 12:00; Stop 08/04/16 at 17:59; Status DC Sodium Chloride (Iv Sodium Chloride 0.9% 1000ml Bag) 1,000 ml @ 400 mls/hr Q2H30M PRN IV PATENCY; Start 08/04/16 at 12:00; Stop 08/04/16 at 23:59; Status DC Info 1 each 1 each PRN DAILY PRN MC SEE COMMENTS; Start 08/04/16 at 16:30; Status UNV Levofloxacin/ Dextrose 100 ml @ 100 mls/hr 1X ONCE IV Last administered on 14:27; Start 08/05/16 at 14:00; Stop 08/05/16 at 14:59; Status DC Daptomycin/Sodium Chloride (Cubicin/Iv Sodium Chloride 0.9% 50ml) 50 ml @ 100 mls/hr 1X ONCE IV Last administered on 08/05/16 14:27; Start 08/05/16 at 14: 00; Stop 08/05/16 at 14:29; Status DC Heparin Sodium (Porcine) 10,000 unit STK-MED ONCE .ROUTE ; Start 08/05/16 at 09: 35; Stop 08/05/16 at 09:36; Status DC Lidocaine/Sodium Bicarbonate 20 ml 20 ml STK-MED ONCE IJ ; Start 08/05/16 at 09: 36; Stop 08/05/16 at 09:37; Status DC Heparin Sodium/ Sodium Chloride 500 ml @ As Directed STK-MED ONCE .ROUTE ; Start 08/05/16 at 09:36; Stop 08/05/16 at 09:37; Status DC Lidocaine/Sodium Bicarbonate (Buffered Lidocaine 1%) 2 ml 1X ONCE IJ Last administered on 08/05/16 10:04; Start 08/05/16 at 10:00; Stop 08/05/16 at 10:02 ; Status DC Heparin Sodium/ Sodium Chloride 60 unit 1X ONCE IV Last administered on 10:04; Start 08/05/16 at 10:00; Stop 08/05/16 at 10:02; Status DC Heparin Sodium (Porcine) 2,800 unit 1X ONCE INT CAT Last administered on 10:04; Start 08/05/16 at 10:00; Stop 08/05/16 at 10:02; Status DC Info (PHARMACY MONITORING -- do not chart) 1 each PRN DAILY PRN MC SEE COMMENTS ; Start 08/05/16 at 10:30; Stop 08/05/16 at 10:30; Status DC Info (PHARMACY MONITORING -- do not chart) 1 each PRN DAILY PRN MC SEE COMMENTS ; Start 08/05/16 at 10:30; Stop 08/05/16 at 10:30; Status DC Hydrocortisone Sodium Succinate 50 mg 50 mg BID IV Last administered on 07:49; Start 08/05/16 at 21:00; Stop 08/07/16 at 10:23; Status DC Sodium Chloride 160 meq/Sodium Acetate 60 meq/ Potassium Chloride 15 meq/ Potassium Acetate 30 meq/Magnesium Sulfate 25 meq/ Multivitamins/ Minerals 10 ml / Chromium/Copper/ Manganese/Seleni/ Zn 1 ml/Total Parenteral Nutrition/Amino Acids/Dextrose/ Fat Emulsion Intravenous 1,500 ml @ 62.5 mls/hr TPN CONT IV Last administered on 08/05/16 22:04; Start 08/05/16 at 22:00; Stop 08/06/16 at 21:59; Status DC Daptomycin 500 mg/ Sodium Chloride 50 ml @ 100 mls/hr Q24H IV Last administered on 08/10/16 15:12; Start 08/06/16 at 14:00 Sodium Chloride (Iv Sodium Chloride 0.9% 1000ml Bag) 1,000 ml @ 1,000 mls/hr Q1H PRN IV hypotension; Start 08/06/16 at 08:21; Stop 08/06/16 at 14:20; Status DC Diphenhydramine HCl (Benadryl) 25 mg 1X PRN PRN IV ITCHING; Start 08/06/16 at 08:30; Stop 08/07/16 at 08:29; Status DC Diphenhydramine HCl (Benadryl) 25 mg 1X PRN PRN IV ITCHING; Start 08/06/16 at 08:30; Stop 08/07/16 at 08:29; Status DC Sodium Chloride (Normal Saline Flush) 10 ml 1X PRN PRN IV AP catheter pack; Start 08/06/16 at 08:30; Stop 08/07/16 at 08:29; Status DC Sodium Chloride 10 ml 10 ml 1X PRN PRN IV FLIGHT SUPERINTENDENT catheter pack; Start 08/06/16 at 08:30; Stop 08/07/16 at 08:29; Status DC Sodium Chloride (Iv Sodium Chloride 0.9% 1000ml Bag) 1,000 ml @ 400 mls/hr Q2H30M PRN IV PATENCY; Start 08/06/16 at 08:21; Stop 08/06/16 at 20:20; Status DC Info 1 each 1 each PRN DAILY PRN MC SEE COMMENTS; Start 08/06/16 at 08:30; Status UNV Albumin Human 200 ml @ 200 mls/hr 1X STAT IV Last administered on 08/06/16 10:09; Start 08/06/16 at 09:52; Stop 08/06/16 at 10:51; Status DC Sodium Chloride/ Sodium Acetate/ Potassium Chloride/ Potassium Acetate/ Magnesium Sulfate/ Multivitamins/ Minerals/Chromium/ Copper/Manganese/ Seleni/Zn /Total Parenteral Nutrition/Amino Acids/Dextrose/ Fat Emulsion Intravenous ( Sodium Chloride/ Infuvite Adult/ Multitrace-5 Conc/ Tpn - Tpn Flu... 1,500 ml @ 62.5 mls/hr TPN CONT IV Last administered on 08/06/16 21:57; Start at 22:00; Stop 08/07/16 at 21:59; Status DC Darbepoetin Sarbjit 60 mcg 60 mcg [id number] SQ ; Start 08/07/16 at 21:00; Status UNV Potassium Chloride (KCl Premix 20meq) 50 ml @ 50 mls/hr Q1H IV Last administered on 08/07/16 10:46; Start 08/07/16 at 08:00; Stop 08/07/16 at 09:59 ; Status DC Hydrocortisone Sodium Succinate 25 mg 25 mg BID IV ; Start 08/07/16 at 21:00; Stop 08/07/16 at 21:00; Status DC Sodium Chloride (Iv Sodium Chloride 0.9% 1000ml Bag) 1,000 ml @ 1,000 mls/hr Q1H PRN IV hypotension; Start 08/07/16 at 12:08; Stop 08/07/16 at 18:07; Status DC Diphenhydramine HCl (Benadryl) 25 mg 1X PRN PRN IV ITCHING; Start 08/07/16 at 12:15; Stop 08/08/16 at 12:14; Status DC Diphenhydramine HCl (Benadryl) 25 mg 1X PRN PRN IV ITCHING; Start 08/07/16 at 12:15; Stop 08/08/16 at 12:14; Status DC Sodium Chloride (Normal Saline Flush) 10 ml 1X PRN PRN IV AP catheter pack; Start 08/07/16 at 12:15; Stop 08/08/16 at 12:14; Status DC Sodium Chloride (Normal Saline Flush) 10 ml 1X PRN PRN IV FLIGHT SUPERINTENDENT catheter pack; Start 08/07/16 at 12:15; Stop 08/08/16 at 12:14; Status DC Info (PHARMACY MONITORING -- do not chart) 1 each PRN DAILY PRN MC SEE COMMENTS ; Start 08/07/16 at 12:15; Status UNV Info 1 each 1 each PRN DAILY PRN MC SEE COMMENTS; Start 08/07/16 at 12:15; Status UNV Sodium Chloride 160 meq/Sodium Acetate 60 meq/ Potassium Chloride 55 meq/ Potassium Acetate 30 meq/Magnesium Sulfate 25 meq/ Multivitamins/ Minerals 10 ml / Chromium/Copper/ Manganese/Seleni/ Zn 1 ml/Total Parenteral Nutrition/Amino Acids/Dextrose/ Fat Emulsion Intravenous 1,500 ml @ 62.5 mls/hr TPN CONT IV Last administered on 08/07/16 21:41; Start 08/07/16 at 22:00; Stop 08/08/16 at 21:59; Status DC Potassium Chloride (KCl Premix 20meq) 50 ml @ 50 mls/hr 1X ONCE IV Last administered on 08/08/16 09:04; Start 08/08/16 at 10:00; Stop 08/08/16 at 10:59 ; Status DC Fentanyl Citrate 25 mcg 25 mcg PRN Q4HRS PRN IV PAIN Last administered on 15:04; Start 08/08/16 at 11:00 Potassium Chloride 50 ml @ 50 mls/hr 1X ONCE IV Last administered on 15:33; Start 08/08/16 at 11:15; Stop 08/08/16 at 12:14; Status DC Sodium Chloride 140 meq/Sodium Acetate 60 meq/ Potassium Chloride 70 meq/ Potassium Acetate 30 meq/Magnesium Sulfate 25 meq/ Multivitamins/ Minerals 10 ml / Chromium/Copper/ Manganese/Seleni/ Zn 1 ml/Total Parenteral Nutrition/Amino Acids/Dextrose/ Fat Emulsion Intravenous 1,500 ml @ 62.5 mls/hr TPN CONT IV Last administered on 08/08/16 21:42; Start 08/08/16 at 22:00; Stop 08/09/16 at 11:30; Status DC Tigecycline 50 mg/ Sodium Chloride 50 ml @ 100 mls/hr Q12HR IV ; Start at 09:42; Stop 08/09/16 at 10:03; Status DC Dextrose 1,000 ml @ 80 mls/hr [id number] IV ; Start 08/09/16 at 11:45; Stop at 11:57; Status DC Dextrose/Sodium Chloride 1,000 ml @ 50 mls/hr Q20H IV Last administered on 12:22; Start 08/09/16 at 12:00; Stop 08/10/16 at 10:09; Status DC Sodium Chloride 10 meq/Sodium Acetate 10 meq/ Potassium Chloride 40 meq/ Potassium Acetate 10 meq/Magnesium Sulfate 15 meq/ Multivitamins/ Minerals 10 ml / Chromium/Copper/ Manganese/Seleni/ Zn 1 ml/Total Parenteral Nutrition/Amino Acids/Dextrose/ Fat Emulsion Intravenous 1,512 ml @ 63 mls/hr TPN CONT IV Last administered on 08/10/16 10:44; Start 08/09/16 at 22:00; Stop 08/10/16 at 21:59; Status DC Dextrose 1,000 ml @ 100 mls/hr Q10H IV Last administered on 08/10/16 10:37; Start 08/10/16 at 10:15; Stop 08/10/16 at 13:48; Status DC Potassium Chloride 50 ml @ 50 mls/hr 1X ONCE IV Last administered on 10:39; Start 08/10/16 at 10:30; Stop 08/10/16 at 11:29; Status DC Dextrose 1,000 ml @ 50 mls/hr Q20H IV Last administered on 08/10/16 15:13; Start 08/10/16 at 14:00 Potassium Chloride/ Potassium Acetate/ Magnesium Sulfate/ Multivitamins/ Minerals/Chromium/ Copper/Manganese/ Seleni/Zn/Total Parenteral Nutrition/Amino Acids/Dextrose/ Fat Emulsion Intravenous (Infuvite Adult/ Multitrace-5 Conc/ Tpn - Tpn Fluid/ Dextrose 70%-Water Iv Soln/ Intralipid 20%) 1,512 ml @ 63 mls/ hr TPN CONT IV Last administered on 08/10/16 22:13; Start 08/10/16 at 22:00; Stop 08/11/16 at 21:59 Active Scripts Active Dilaudid (Hydromorphone Hcl) 4 Mg Tablet 4 Mg PO Q6HRS Phenazopyridine Hcl 200 Mg Tablet 200 Mg PO PRN TID PRN FENTANYL 50mcg/hr (Fentanyl) 1 Each Patch.td72 1 Patch TD Q3DAYS Anaspaz (Hyoscyamine Sulfate) 0.125 Mg Tab.rapdis 0.125 Mg PO Q6HRS PRN Cefpodoxime Proxetil 200 Mg Tablet 200 Mg PO BID Sertraline Hcl 50 Mg Tablet 100 Mg PO DAILY 30 Days Protonix (Pantoprazole Sodium) 40 Mg Tablet.dr 1 Tab PO DAILY Zinc Oxide 56.7 Gm Oint...g. 1 Sang TP BID Lidocaine 35.44 Gm Oint...g. 1 Sang TP BID Ondansetron Odt (Ondansetron) 4 Mg Tab.rapdis 8 Mg PO PRN Q8HRS PRN Gas-X (Simethicone) 80 Mg Tab.chew 80 Mg PO PRN QID PRN Reported Lorazepam 0.5 Mg Tablet 0.5 Mg PO PRN BID PRN Vitals/I & O Vital Sign - Last 24 Hours 08/10/16 08/10/16 08/10/16 08/10/16 10:00 11:00 12:00 12:00 Temp 98.1 98.1 Pulse 98 116 120 Resp 14 14 15 B/P 168/74 162/73 173/74 Pulse Ox 100 100 100 O2 Delivery Ventilator Ventilator Ventilator Mechanical Ventilator 08/10/16 08/10/16 08/10/16 08/10/16 12:15 13:00 13:10 14:00 Pulse 110 101 Resp 23 B/P 142/84 135/62 Pulse Ox 99 99 99 O2 Delivery Venturi Mask Venturi Mask Venturi Mask Venturi Mask O2 Flow Rate 9.0 6.0 08/10/16 08/10/16 08/10/16 08/10/16 15:00 15:47 16:00 16:00 Temp 98.0 98.0 Pulse 99 102 Resp 20 24 B/P 127/64 140/72 Pulse Ox 99 100 99 O2 Delivery Venturi Mask Mask Venturi Mask Venturi Mask O2 Flow Rate 6.0 08/10/16 08/10/16 08/10/16 08/10/16 17:00 18:00 19:00 19:20 Temp 97.4 97.4 Pulse 96 96 64 Resp 20 16 20 B/P 134/67 135/62 116/63 Pulse Ox 100 100 100 O2 Delivery Venturi Mask Venturi Mask Nasal Cannula Nasal Cannula O2 Flow Rate 3.0 3.0 3.0 3.0 08/10/16 08/10/16 08/10/16 08/10/16 19:32 20:00 21:00 22:00 Pulse 99 89 85 Resp 23 18 22 B/P 149/69 132/63 126/54 Pulse Ox 100 99 100 99 O2 Delivery Nasal Cannula Nasal Cannula Nasal Cannula Nasal Cannula O2 Flow Rate 3.0 2.0 2.0 2.0 08/10/16 08/11/16 08/11/16 08/11/16 23:00 00:05 00:05 01:00 Temp 97.9 97.9 Pulse 74 79 87 Resp B/P 108/48 133/79 107/57 Pulse Ox 100 100 100 O2 Delivery Nasal Cannula Nasal Cannula Nasal Cannula Nasal Cannula O2 Flow Rate 2.0 2.0 3.0 3.0 08/11/16 08/11/16 08/11/16 08/11/16 02:00 03:00 03:59 04:00 Temp 97.3 97.3 Pulse 76 58 98 Resp B/P 123/82 115/52 135/53 Pulse Ox 100 100 100 O2 Delivery Nasal Cannula Nasal Cannula Nasal Cannula Nasal Cannula O2 Flow Rate 3.0 2.0 2.0 2.0 08/11/16 08/11/16 08/11/16 08/11/16 05:00 06:07 07:00 08:00 Pulse 62 55 88 Resp B/P 113/54 98/51 148/74 Pulse Ox 100 100 100 O2 Delivery Nasal Cannula Nasal Cannula Nasal Cannula Nasal Cannula O2 Flow Rate 2.0 2.0 2.0 2.0 08/11/16 08/11/16 08:00 08:50 Temp 96.3 96.3 Pulse 52 Resp 24 B/P 109/68 Pulse Ox 100 100 O2 Delivery Nasal Cannula Nasal Cannula O2 Flow Rate 2.0 2.0 Intake and Output 08/10/16 08/10/16 08/11/16 15:00 23:00 07:00 Intake Total 290 ml 776 ml 1283 ml Output Total 180 ml 985 ml 890 ml Balance 110 ml -209 ml 393 ml ENMA FINLEY MD Aug 11, 2016 09:16
--- NOTE | 2016-08-11 09:52 | PDOC ---
PULMONARY PROGRESS NOTES Subjective siting in chair wants water Vitals Vital Signs Date Time Temp Pulse Resp B/P Pulse Ox O2 Delivery O2 Flow Rate FiO2 08/11/16 09:00 76 23 123/82 100 Nasal Cannula 2.0 08/11/16 08:00 96.3 96.3 General: Alert, No acute distress HEENT: Other (nc at perrl, nose clear, orally intuvated. ) Lungs: Clear Cardiovascular: S1, S2 Abdomen: Other (EC fistula) Neuro Exam: Alert Skin: Warm Labs Laboratory Tests Test 08/09/16 11:04 08/09/16 11:30 08/09/16 16:20 08/09/16 16:30 Glucose (Fingerstick) 142mg/dL (70-99) Prothrombin Time 15.3SEC (11.7-14.0) Prothromb Time International Ratio 1.3 (0.8-1.1) Activated Partial Thromboplast Time 37SEC (24-38) Fibrinogen 231mg/dL (200-440) O2 Saturation 98% (92-99) Arterial Blood pH 7.55 (7.35-7.45) Arterial Blood pCO2 at Patient Temp 33mmHg (35-46) Arterial Blood pO2 at Patient Temp 119mmHg (65-108) Arterial Blood HCO3 28mmol/L (21-28) Arterial Blood Base Excess 6mmol/L (-3-3) FiO2 35 Sodium Level 153mmol/L (136-145) Potassium Level 3.8mmol/L (3.5-5.1) Chloride Level 112mmol/L (98-107) Carbon Dioxide Level 34mmol/L (21-32) Anion Gap 7 (6-14) Blood Urea Nitrogen 83mg/dL (7-20) Creatinine 1.2mg/dL (0.6-1.0) Estimated GFR (Cockcroft-Gault) 55.3 Glucose Level 153mg/dL (70-99) Calcium Level 9.2mg/dL (8.5-10.1) Test 08/10/16 00:02 08/10/16 05:45 08/10/16 05:47 08/10/16 10:20 Glucose (Fingerstick) 132mg/dL (70-99) 109mg/dL (70-99) White Blood Count 7.6x10^3/uL (4.0-11.0) Red Blood Count 3.22x10^6/uL (3.50-5.40) Hemoglobin 8.3g/dL (12.0-15.5) Hematocrit 26.5% (36.0-47.0) Mean Corpuscular Volume 82fL (79-100) Mean Corpuscular Hemoglobin 26pg (25-35) Mean Corpuscular Hemoglobin Concent 31g/dL (31-37) Red Cell Distribution Width 21.8% (11.5-14.5) Platelet Count 71x10^3/uL (140-400) Neutrophils (%) (Auto) 74% (31-73) Lymphocytes (%) (Auto) 15% (24-48) Monocytes (%) (Auto) 9% (0-9) Eosinophils (%) (Auto) 1% (0-3) Basophils (%) (Auto) 1% (0-3) Neutrophils # (Auto) 5.6x10^3uL (1.8-7.7) Lymphocytes # (Auto) 1.1x10^3/uL (1.0-4.8) Monocytes # (Auto) 0.7x10^3/uL (0.0-1.1) Eosinophils # (Auto) 0.1x10^3/uL (0.0-0.7) Basophils # (Auto) 0.1x10^3/uL (0.0-0.2) Sodium Level 154mmol/L (136-145) Potassium Level 3.4mmol/L (3.5-5.1) Chloride Level 113mmol/L (98-107) Carbon Dioxide Level 33mmol/L (21-32) Anion Gap 8 (6-14) Blood Urea Nitrogen 78mg/dL (7-20) Creatinine 1.0mg/dL (0.6-1.0) Estimated GFR (Cockcroft-Gault) 68.2 Glucose Level 117mg/dL (70-99) Calcium Level 9.4mg/dL (8.5-10.1) Phosphorus Level 4.2mg/dL (2.6-4.7) Magnesium Level 2.4mg/dL (1.8-2.4) O2 Saturation 99% (92-99) Arterial Blood pH 7.51 (7.35-7.45) Arterial Blood pCO2 at Patient Temp 40mmHg (35-46) Arterial Blood pO2 at Patient Temp 161mmHg (65-108) Arterial Blood HCO3 31mmol/L (21-28) Arterial Blood Base Excess 7mmol/L (-3-3) FiO2 35 Test 08/10/16 15:01 08/10/16 15:18 08/10/16 18:30 08/11/16 00:54 O2 Saturation 98% (92-99) Arterial Blood pH 7.49 (7.35-7.45) Arterial Blood pCO2 at Patient Temp 35mmHg (35-46) Arterial Blood pO2 at Patient Temp 121mmHg (65-108) Arterial Blood HCO3 26mmol/L (21-28) Arterial Blood Base Excess 3mmol/L (-3-3) FiO2 30 Glucose (Fingerstick) 158mg/dL (70-99) 149mg/dL (70-99) 138mg/dL (70-99) Test 08/11/16 03:28 08/11/16 03:37 08/11/16 05:30 08/11/16 05:34 O2 Saturation 99% (92-99) Arterial Blood pH 7.48 (7.35-7.45) Arterial Blood pCO2 at Patient Temp 39mmHg (35-46) Arterial Blood pO2 at Patient Temp 161mmHg (65-108) Arterial Blood HCO3 29mmol/L (21-28) Arterial Blood Base Excess 5mmol/L (-3-3) FiO2 28 Glucose (Fingerstick) 119mg/dL (70-99) 135mg/dL (70-99) White Blood Count 5.9x10^3/uL (4.0-11.0) Red Blood Count 2.75x10^6/uL (3.50-5.40) Hemoglobin 7.3g/dL (12.0-15.5) Hematocrit 23.3% (36.0-47.0) Mean Corpuscular Volume 85fL (79-100) Mean Corpuscular Hemoglobin 26pg (25-35) Mean Corpuscular Hemoglobin Concent 31g/dL (31-37) Red Cell Distribution Width 23.5% (11.5-14.5) Platelet Count 75x10^3/uL (140-400) Neutrophils (%) (Auto) 69% (31-73) Lymphocytes (%) (Auto) 17% (24-48) Monocytes (%) (Auto) 10% (0-9) Eosinophils (%) (Auto) 3% (0-3) Basophils (%) (Auto) 1% (0-3) Neutrophils # (Auto) 4.1x10^3uL (1.8-7.7) Lymphocytes # (Auto) 1.0x10^3/uL (1.0-4.8) Monocytes # (Auto) 0.6x10^3/uL (0.0-1.1) Eosinophils # (Auto) 0.2x10^3/uL (0.0-0.7) Basophils # (Auto) 0.0x10^3/uL (0.0-0.2) Sodium Level 156mmol/L (136-145) Potassium Level 3.2mmol/L (3.5-5.1) Chloride Level 116mmol/L (98-107) Carbon Dioxide Level 31mmol/L (21-32) Anion Gap 9 (6-14) Blood Urea Nitrogen 51mg/dL (7-20) Creatinine 0.8mg/dL (0.6-1.0) Estimated GFR (Cockcroft-Gault) 88.2 Glucose Level 147mg/dL (70-99) Calcium Level 9.2mg/dL (8.5-10.1) Total Bilirubin 4.8mg/dL (0.2-1.0) Direct Bilirubin 2.7mg/dL (0.0-0.2) Aspartate Amino Transf (AST/SGOT) 32U/L (15-37) Alanine Aminotransferase (ALT/SGPT) 36U/L (14-59) Alkaline Phosphatase 187U/L (46-116) Creatine Kinase 35U/L (26-192) Total Protein 5.9g/dL (6.4-8.2) Albumin 2.5g/dL (3.4-5.0) Laboratory Tests Test 08/10/16 10:20 08/10/16 15:01 08/10/16 15:18 08/10/16 18:30 O2 Saturation 99% (92-99) 98% (92-99) Arterial Blood pH 7.51 (7.35-7.45) 7.49 (7.35-7.45) Arterial Blood pCO2 at Patient Temp 40mmHg (35-46) 35mmHg (35-46) Arterial Blood pO2 at Patient Temp 161mmHg (65-108) 121mmHg (65-108) Arterial Blood HCO3 31mmol/L (21-28) 26mmol/L (21-28) Arterial Blood Base Excess 7mmol/L (-3-3) 3mmol/L (-3-3) FiO2 35 30 Glucose (Fingerstick) 158mg/dL (70-99) 149mg/dL (70-99) Test 08/11/16 00:54 08/11/16 03:28 08/11/16 03:37 08/11/16 05:30 Glucose (Fingerstick) 138mg/dL (70-99) 119mg/dL (70-99) O2 Saturation 99% (92-99) Arterial Blood pH 7.48 (7.35-7.45) Arterial Blood pCO2 at Patient Temp 39mmHg (35-46) Arterial Blood pO2 at Patient Temp 161mmHg (65-108) Arterial Blood HCO3 29mmol/L (21-28) Arterial Blood Base Excess 5mmol/L (-3-3) FiO2 28 White Blood Count 5.9x10^3/uL (4.0-11.0) Red Blood Count 2.75x10^6/uL (3.50-5.40) Hemoglobin 7.3g/dL (12.0-15.5) Hematocrit 23.3% (36.0-47.0) Mean Corpuscular Volume 85fL (79-100) Mean Corpuscular Hemoglobin 26pg (25-35) Mean Corpuscular Hemoglobin Concent 31g/dL (31-37) Red Cell Distribution Width 23.5% (11.5-14.5) Platelet Count 75x10^3/uL (140-400) Neutrophils (%) (Auto) 69% (31-73) Lymphocytes (%) (Auto) 17% (24-48) Monocytes (%) (Auto) 10% (0-9) Eosinophils (%) (Auto) 3% (0-3) Basophils (%) (Auto) 1% (0-3) Neutrophils # (Auto) 4.1x10^3uL (1.8-7.7) Lymphocytes # (Auto) 1.0x10^3/uL (1.0-4.8) Monocytes # (Auto) 0.6x10^3/uL (0.0-1.1) Eosinophils # (Auto) 0.2x10^3/uL (0.0-0.7) Basophils # (Auto) 0.0x10^3/uL (0.0-0.2) Sodium Level 156mmol/L (136-145) Potassium Level 3.2mmol/L (3.5-5.1) Chloride Level 116mmol/L (98-107) Carbon Dioxide Level 31mmol/L (21-32) Anion Gap 9 (6-14) Blood Urea Nitrogen 51mg/dL (7-20) Creatinine 0.8mg/dL (0.6-1.0) Estimated GFR (Cockcroft-Gault) 88.2 Glucose Level 147mg/dL (70-99) Calcium Level 9.2mg/dL (8.5-10.1) Total Bilirubin 4.8mg/dL (0.2-1.0) Direct Bilirubin 2.7mg/dL (0.0-0.2) Aspartate Amino Transf (AST/SGOT) 32U/L (15-37) Alanine Aminotransferase (ALT/SGPT) 36U/L (14-59) Alkaline Phosphatase 187U/L (46-116) Creatine Kinase 35U/L (26-192) Total Protein 5.9g/dL (6.4-8.2) Albumin 2.5g/dL (3.4-5.0) Test 08/11/16 05:34 Glucose (Fingerstick) 135mg/dL (70-99) Medications Active Scripts Medications Dose Route/Sig Days Date Category Dilaudid (Hydromorphone Hcl) 4 Mg Tablet 4 Mg PO Q6HRS 06/29/16 Rx Phenazopyridine Hcl 200 Mg Tablet 200 Mg PO PRN TID PRN 06/29/16 Rx FENTANYL 50mcg/hr (Fentanyl) 1 Each Patch.td72 1 Patch TD Q3DAYS 06/29/16 Rx Anaspaz (Hyoscyamine Sulfate) 0.125 Mg Tab.rapdis 0.125 Mg PO Q6HRS PRN 06/29/16 Rx Cefpodoxime Proxetil 200 Mg Tablet 200 Mg PO BID 06/29/16 Rx Sertraline Hcl 50 Mg Tablet 100 Mg PO DAILY 30 05/12/16 Rx Protonix (Pantoprazole Sodium) 40 Mg Tablet.dr 1 Tab PO DAILY 12/27/15 Rx Zinc Oxide 56.7 Gm Oint...g. 1 Sang TP BID 12/18/15 Rx Lidocaine 35.44 Gm Oint...g. 1 Sang TP BID 12/18/15 Rx Ondansetron Odt (Ondansetron) 4 Mg Tab.rapdis 8 Mg PO PRN Q8HRS PRN 07/03/15 Rx Gas-X (Simethicone) 80 Mg Tab.chew 80 Mg PO PRN QID PRN 09/30/14 Rx Lorazepam 0.5 Mg Tablet 0.5 Mg PO PRN BID PRN 11/08/13 Reported Comments CXR 08/07 RESOLVED CHF Impression . 1. Acute respiratory failure, multifactorial. 2. Septic shock. off pressors 3. Bilateral pulmonary infiltrates compatible with pulmonary edema, /doubt pneumonia. resolved 4. Fungemia./Urine MDR Enterobacter and Amp res Enterococcus 07/15 5. Chronic enterocutaneous fistula. 6. Metabolic toxic encephalopathy. 7. Acute renal failure. 8. Mhxeitum-wu-gdxdof protein malnutrition, present upon admission. 9. Metabolic acidosis. resolved 10.Thrombocytopenia, sepsis induced Plan . extubated no resp distress use prn BIPAP today PT/OT abx per ID off solucortef, bronchodilator monitor Plt cont abx, antifungal per ID protonix, scds for prophylaxis d/w few ice chips ok WENDI GRAY MD Aug 11, 2016 09:52
[2016-08-11] MEDS: IV DEXTROSE 5% 1,000 ML IV SCH ×3 (10:00→21:31)
--- NOTE | 2016-08-11 10:28 | PDOC ---
G I PROGRESS NOTE Subjective Arouses, orients, but non-verbal. Physical Exam Lungs clear. RRR Abdomen soft, not distended. Review of Relevant I have reviewed the following items lucila (where applicable) has been applied. Labs Laboratory Tests Test 08/09/16 11:04 08/09/16 11:30 08/09/16 16:20 08/09/16 16:30 Glucose (Fingerstick) 142mg/dL (70-99) Prothrombin Time 15.3SEC (11.7-14.0) Prothromb Time International Ratio 1.3 (0.8-1.1) Activated Partial Thromboplast Time 37SEC (24-38) Fibrinogen 231mg/dL (200-440) O2 Saturation 98% (92-99) Arterial Blood pH 7.55 (7.35-7.45) Arterial Blood pCO2 at Patient Temp 33mmHg (35-46) Arterial Blood pO2 at Patient Temp 119mmHg (65-108) Arterial Blood HCO3 28mmol/L (21-28) Arterial Blood Base Excess 6mmol/L (-3-3) FiO2 35 Sodium Level 153mmol/L (136-145) Potassium Level 3.8mmol/L (3.5-5.1) Chloride Level 112mmol/L (98-107) Carbon Dioxide Level 34mmol/L (21-32) Anion Gap 7 (6-14) Blood Urea Nitrogen 83mg/dL (7-20) Creatinine 1.2mg/dL (0.6-1.0) Estimated GFR (Cockcroft-Gault) 55.3 Glucose Level 153mg/dL (70-99) Calcium Level 9.2mg/dL (8.5-10.1) Test 08/10/16 00:02 08/10/16 05:45 08/10/16 05:47 08/10/16 10:20 Glucose (Fingerstick) 132mg/dL (70-99) 109mg/dL (70-99) White Blood Count 7.6x10^3/uL (4.0-11.0) Red Blood Count 3.22x10^6/uL (3.50-5.40) Hemoglobin 8.3g/dL (12.0-15.5) Hematocrit 26.5% (36.0-47.0) Mean Corpuscular Volume 82fL (79-100) Mean Corpuscular Hemoglobin 26pg (25-35) Mean Corpuscular Hemoglobin Concent 31g/dL (31-37) Red Cell Distribution Width 21.8% (11.5-14.5) Platelet Count 71x10^3/uL (140-400) Neutrophils (%) (Auto) 74% (31-73) Lymphocytes (%) (Auto) 15% (24-48) Monocytes (%) (Auto) 9% (0-9) Eosinophils (%) (Auto) 1% (0-3) Basophils (%) (Auto) 1% (0-3) Neutrophils # (Auto) 5.6x10^3uL (1.8-7.7) Lymphocytes # (Auto) 1.1x10^3/uL (1.0-4.8) Monocytes # (Auto) 0.7x10^3/uL (0.0-1.1) Eosinophils # (Auto) 0.1x10^3/uL (0.0-0.7) Basophils # (Auto) 0.1x10^3/uL (0.0-0.2) Sodium Level 154mmol/L (136-145) Potassium Level 3.4mmol/L (3.5-5.1) Chloride Level 113mmol/L (98-107) Carbon Dioxide Level 33mmol/L (21-32) Anion Gap 8 (6-14) Blood Urea Nitrogen 78mg/dL (7-20) Creatinine 1.0mg/dL (0.6-1.0) Estimated GFR (Cockcroft-Gault) 68.2 Glucose Level 117mg/dL (70-99) Calcium Level 9.4mg/dL (8.5-10.1) Phosphorus Level 4.2mg/dL (2.6-4.7) Magnesium Level 2.4mg/dL (1.8-2.4) O2 Saturation 99% (92-99) Arterial Blood pH 7.51 (7.35-7.45) Arterial Blood pCO2 at Patient Temp 40mmHg (35-46) Arterial Blood pO2 at Patient Temp 161mmHg (65-108) Arterial Blood HCO3 31mmol/L (21-28) Arterial Blood Base Excess 7mmol/L (-3-3) FiO2 35 Test 2/27/17 15:01 08/10/16 15:18 08/10/16 18:30 08/11/16 00:54 O2 Saturation 98% (92-99) Arterial Blood pH 7.49 (7.35-7.45) Arterial Blood pCO2 at Patient Temp 35mmHg (35-46) Arterial Blood pO2 at Patient Temp 121mmHg (65-108) Arterial Blood HCO3 26mmol/L (21-28) Arterial Blood Base Excess 3mmol/L (-3-3) FiO2 30 Glucose (Fingerstick) 158mg/dL (70-99) 149mg/dL (70-99) 138mg/dL (70-99) Test 08/11/16 03:28 08/11/16 03:37 08/11/16 05:30 08/11/16 05:34 O2 Saturation 99% (92-99) Arterial Blood pH 7.48 (7.35-7.45) Arterial Blood pCO2 at Patient Temp 39mmHg (35-46) Arterial Blood pO2 at Patient Temp 161mmHg (65-108) Arterial Blood HCO3 29mmol/L (21-28) Arterial Blood Base Excess 5mmol/L (-3-3) FiO2 28 Glucose (Fingerstick) 119mg/dL (70-99) 135mg/dL (70-99) White Blood Count 5.9x10^3/uL (4.0-11.0) Red Blood Count 2.75x10^6/uL (3.50-5.40) Hemoglobin 7.3g/dL (12.0-15.5) Hematocrit 23.3% (36.0-47.0) Mean Corpuscular Volume 85fL (79-100) Mean Corpuscular Hemoglobin 26pg (25-35) Mean Corpuscular Hemoglobin Concent 31g/dL (31-37) Red Cell Distribution Width 23.5% (11.5-14.5) Platelet Count 75x10^3/uL (140-400) Neutrophils (%) (Auto) 69% (31-73) Lymphocytes (%) (Auto) 17% (24-48) Monocytes (%) (Auto) 10% (0-9) Eosinophils (%) (Auto) 3% (0-3) Basophils (%) (Auto) 1% (0-3) Neutrophils # (Auto) 4.1x10^3uL (1.8-7.7) Lymphocytes # (Auto) 1.0x10^3/uL (1.0-4.8) Monocytes # (Auto) 0.6x10^3/uL (0.0-1.1) Eosinophils # (Auto) 0.2x10^3/uL (0.0-0.7) Basophils # (Auto) 0.0x10^3/uL (0.0-0.2) Sodium Level 156mmol/L (136-145) Potassium Level 3.2mmol/L (3.5-5.1) Chloride Level 116mmol/L (98-107) Carbon Dioxide Level 31mmol/L (21-32) Anion Gap 9 (6-14) Blood Urea Nitrogen 51mg/dL (7-20) Creatinine 0.8mg/dL (0.6-1.0) Estimated GFR (Cockcroft-Gault) 88.2 Glucose Level 147mg/dL (70-99) Calcium Level 9.2mg/dL (8.5-10.1) Total Bilirubin 4.8mg/dL (0.2-1.0) Direct Bilirubin 2.7mg/dL (0.0-0.2) Aspartate Amino Transf (AST/SGOT) 32U/L (15-37) Alanine Aminotransferase (ALT/SGPT) 36U/L (14-59) Alkaline Phosphatase 187U/L (46-116) Creatine Kinase 35U/L (26-192) Total Protein 5.9g/dL (6.4-8.2) Albumin 2.5g/dL (3.4-5.0) Laboratory Tests Test 08/10/16 15:01 08/10/16 15:18 08/10/16 18:30 08/11/16 00:54 O2 Saturation 98% (92-99) Arterial Blood pH 7.49 (7.35-7.45) Arterial Blood pCO2 at Patient Temp 35mmHg (35-46) Arterial Blood pO2 at Patient Temp 121mmHg (65-108) Arterial Blood HCO3 26mmol/L (21-28) Arterial Blood Base Excess 3mmol/L (-3-3) FiO2 30 Glucose (Fingerstick) 158mg/dL (70-99) 149mg/dL (70-99) 138mg/dL (70-99) Test 08/11/16 03:28 08/11/16 03:37 08/11/16 05:30 08/11/16 05:34 O2 Saturation 99% (92-99) Arterial Blood pH 7.48 (7.35-7.45) Arterial Blood pCO2 at Patient Temp 39mmHg (35-46) Arterial Blood pO2 at Patient Temp 161mmHg (65-108) Arterial Blood HCO3 29mmol/L (21-28) Arterial Blood Base Excess 5mmol/L (-3-3) FiO2 28 Glucose (Fingerstick) 119mg/dL (70-99) 135mg/dL (70-99) White Blood Count 5.9x10^3/uL (4.0-11.0) Red Blood Count 2.75x10^6/uL (3.50-5.40) Hemoglobin 7.3g/dL (12.0-15.5) Hematocrit 23.3% (36.0-47.0) Mean Corpuscular Volume 85fL (79-100) Mean Corpuscular Hemoglobin 26pg (25-35) Mean Corpuscular Hemoglobin Concent 31g/dL (31-37) Red Cell Distribution Width 23.5% (11.5-14.5) Platelet Count 75x10^3/uL (140-400) Neutrophils (%) (Auto) 69% (31-73) Lymphocytes (%) (Auto) 17% (24-48) Monocytes (%) (Auto) 10% (0-9) Eosinophils (%) (Auto) 3% (0-3) Basophils (%) (Auto) 1% (0-3) Neutrophils # (Auto) 4.1x10^3uL (1.8-7.7) Lymphocytes # (Auto) 1.0x10^3/uL (1.0-4.8) Monocytes # (Auto) 0.6x10^3/uL (0.0-1.1) Eosinophils # (Auto) 0.2x10^3/uL (0.0-0.7) Basophils # (Auto) 0.0x10^3/uL (0.0-0.2) Sodium Level 156mmol/L (136-145) Potassium Level 3.2mmol/L (3.5-5.1) Chloride Level 116mmol/L (98-107) Carbon Dioxide Level 31mmol/L (21-32) Anion Gap 9 (6-14) Blood Urea Nitrogen 51mg/dL (7-20) Creatinine 0.8mg/dL (0.6-1.0) Estimated GFR (Cockcroft-Gault) 88.2 Glucose Level 147mg/dL (70-99) Calcium Level 9.2mg/dL (8.5-10.1) Total Bilirubin 4.8mg/dL (0.2-1.0) Direct Bilirubin 2.7mg/dL (0.0-0.2) Aspartate Amino Transf (AST/SGOT) 32U/L (15-37) Alanine Aminotransferase (ALT/SGPT) 36U/L (14-59) Alkaline Phosphatase 187U/L (46-116) Creatine Kinase 35U/L (26-192) Total Protein 5.9g/dL (6.4-8.2) Albumin 2.5g/dL (3.4-5.0) Microbiology 08/01/16 Blood Culture - Final, Complete NO GROWTH AFTER 5 DAYS 07/15/16 Urine Culture - Final, Complete 07/15/16 Urine Culture Result 1 (ROYA) - Final, Complete 07/15/16 Urine Culture Result 2 (ROYA) - Final, Complete 07/15/16 Antimicrobic Susceptibility - Final, Complete 07/29/16 Aerobic Culture - Final, Complete 07/29/16 Aerobic Culture Result 1 (ROYA) - Final, Complete Bili hanging (will be the last to fall). Medications Current Medications Piperacillin Sod/ Tazobactam Sod/ Sodium Chloride (Zosyn/Iv Sodium Chloride 0.9 % 100ml) 100 ml @ 200 mls/hr 1X ONCE IV Last administered on 07/15/16 22:56; Start 07/15/16 at 22:00; Stop 07/15/16 at 22:29; Status DC Fentanyl Citrate 50 mcg 50 mcg PRN Q15MIN PRN IV PAIN GREATER THAN 3/10 Last administered on 07/16/16 00:30; Start 07/15/16 at 21:45; Stop 07/16/16 at 02:00; Status DC Sodium Chloride 1,000 ml @ 1,000 mls/hr 1X ONCE IV Last administered on 21:59; Start 07/15/16 at 22:00; Stop 07/15/16 at 22:59; Status DC Sodium Chloride (Iv Sodium Chloride 0.9% 500ml Bag) 500 ml @ 500 mls/hr 1X ONCE IV Last administered on 07/15/16 22:00; Start 07/15/16 at 22:00; Stop at 22:59; Status DC Ondansetron HCl (Zofran) 4 mg PRN Q8HRS PRN IV NAUSEA/VOMITING; Start 07/15/16 at 23:30; Stop 07/16/16 at 08:52; Status DC Fentanyl Citrate 50 mcg 50 mcg PRN Q2HR PRN IV SEVERE PAIN Last administered on 07/16/16 08:10; Start 07/15/16 at 23:30; Stop 07/16/16 at 08:52; Status DC Sodium Chloride (Iv Sodium Chloride 0.9% 1000ml Bag) 1,000 ml @ 150 mls/hr Q6H40M IV Last administered on 07/15/16 02:00; Start 07/15/16 at 23:45; Stop 07/16/16 at 08:52; Status DC Acetaminophen (Tylenol) 650 mg PRN Q4HRS PRN PO FEVER; Start 07/15/16 at 23:30; Stop 07/16/16 at 23:29; Status DC Info (Do NOT chart on this placeholder) 1 each PRN DAILY PRN MC NEEDS VERIFICATION; Start 07/16/16 at 03:00; Status Cancel Acetaminophen 650 mg 650 mg PRN Q4HRS PRN PO MILD PAIN / TEMP Last administered on 07/28/16 07:42; Start 07/16/16 at 08:45; Stop 07/29/16 at 08:33 ; Status DC Piperacillin Sod/ Tazobactam Sod 3.375 gm/Sodium Chloride 50 ml @ 100 mls/hr Q6HRS IV Last administered on 07/18/16 05:50; Start 07/16/16 at 10:00; Stop 07/18 at 13:28; Status DC Linezolid (Zyvox Premix) 300 ml @ 300 mls/hr Q12HR IV Last administered on 07/18 08:34; Start 07/16/16 at 10:00; Stop 07/18/16 at 13:28; Status DC Hydromorphone HCl (Dilaudid) 2 mg PRN Q4HRS PRN IV MODERATE PAIN Last administered on 08/09/16 06:39; Start 07/16/16 at 08:45; Stop 08/09/16 at 17:35 ; Status DC Hydromorphone HCl (Dilaudid) 4 mg PRN Q4HRS PRN IV SEVERE PAIN Last administered on 07/30/16 09:23; Start 07/16/16 at 08:45; Stop 07/31/16 at 15:01 ; Status DC Pantoprazole Sodium (Protonix) 40 mg DAILYAC PO Last administered on 07/27/16 11:11; Start 07/16/16 at 09:30; Stop 07/29/16 at 08:44; Status DC Hyoscyamine (Anaspaz) 0.125 mg Q6HRS PO Last administered on 07/20/16 05:20; Start 07/16/16 at 12:00; Stop 07/20/16 at 08:58; Status DC Phenazopyridine HCl (Pyridium) 200 mg TID PO Last administered on 07/20/16 08: 25; Start 07/16/16 at 09:30; Stop 07/20/16 at 08:58; Status DC Lorazepam (Ativan) 0.5 mg PRN BID PRN PO ANXIETY / AGITATION Last administered on 07/29/16 02:16; Start 07/16/16 at 08:45; Stop 07/31/16 at 15:01; Status DC Simethicone (Gas-X) 80 mg PRN Q4HRS PRN PO GAS / BLOATING Last administered on 07/24/16 22:30; Start 07/16/16 at 08:45; Stop 07/31/16 at 15:01; Status DC Zolpidem Tartrate 5 mg 5 mg PRN QHS PRN PO INSOMNIA Last administered on 23:14; Start 07/16/16 at 08:45; Stop 07/31/16 at 15:01; Status DC Potassium Chloride/Dextrose/ Sod Cl 1,000 ml @ 80 mls/hr [id number] IV Last administered on 07/16/16 10:54; Start 07/16/16 at 09:30; Stop 07/16/16 at 21:59; Status DC Fluconazole/ Sodium Chloride (Diflucan 200mg/ 100ml Premix) 100 ml @ 100 mls/ hr Q24H IV Last administered on 07/18/16 11:43; Start 07/16/16 at 11:00; Stop at 13:28; Status DC Info 1 each 1 each PRN DAILY PRN MC SEE COMMENTS Last administered on 12:41; Start 07/16/16 at 10:00; Stop 08/01/16 at 11:24; Status DC Sodium Chloride 220 meq/Sodium Acetate 90 meq/ Potassium Chloride 50 meq/ Potassium Acetate 15 meq/Potassium Phosphate 10 mmol/ Magnesium Sulfate 50 meq/ Calcium Gluconate 6 meq/ Multivitamins/ Minerals 10 ml/ Chromium/Copper/ Manganese/Seleni/ Zn 1 ml/Total Parenteral Nutrition/Amino Acids/Dextro... 1, 920 ml @ 80 mls/hr TPN CONT IV ; Start 07/16/16 at 22:00; Stop 07/16/16 at 22:00 ; Status DC Sodium Chloride/ Sodium Acetate/ Potassium Chloride/ Potassium Acetate/ Potassium Phosphate/ Magnesium Sulfate/ Calcium Gluconate/ Multivitamins/ Minerals/Chromium/ Copper/Manganese/ Seleni/Zn/Total Parenteral Nutrition/Amino Acids/Dextrose/ Fat Emulsion Intravenous (Sodium Chlori... 1,820 ml @ 75.833 mls/ hr TPN CONT IV Last administered on 07/16/16 21:03; Start 07/16/16 at 22: 00; Stop 07/17/16 at 21:59; Status DC Ondansetron HCl (Zofran) 4 mg PRN Q6HRS PRN IV NAUSEA/VOMITING Last administered on 07/21/16 08:48; Start 07/16/16 at 17:15; Stop 07/31/16 at 15:01; Status DC Diphenhydramine HCl (Benadryl) 25 mg PRN Q6HRS PRN PO ITCHING Last administered on 07/25/16 23:38; Start 07/16/16 at 17:45; Stop 07/31/16 at 15:01 ; Status DC Lidocaine (Xylocaine) 1 sang BID TP Last administered on 08/10/16 20:35; Start 07/17/16 at 09:00 Zinc Oxide 1 sang 1 sang BID TP Last administered on 08/10/16 20:35; Start at 09:30 Sodium Chloride/ Sodium Acetate/ Potassium Chloride/ Potassium Acetate/ Potassium Phosphate/ Magnesium Sulfate/ Calcium Gluconate/ Multivitamins/ Minerals/Chromium/ Copper/Manganese/ Seleni/Zn/Total Parenteral Nutrition/Amino Acids/Dextrose/ Fat Emulsion Intravenous (Sodium Chlori... 1,920 ml @ 80 mls/ hr TPN CONT IV Last administered on 07/17/16 22:13; Start 07/17/16 at 22:00; Stop 07/18/16 at 21:59; Status DC Furosemide 40 mg 40 mg 1X ONCE IVP Last administered on 07/18/16 11:43; Start 07/18/16 at 11:00; Stop 07/18/16 at 11:07; Status DC Sodium Chloride 220 meq/Sodium Acetate 90 meq/ Potassium Chloride 50 meq/ Potassium Acetate 15 meq/Potassium Phosphate 10 mmol/ Magnesium Sulfate 50 meq/ Calcium Gluconate 3 meq/ Multivitamins/ Minerals 10 ml/ Chromium/Copper/ Manganese/Seleni/ Zn 1 ml/Total Parenteral Nutrition/Amino Acids/Dextro... 1, 920 ml @ 80 mls/hr TPN CONT IV Last administered on 07/19/16 00:03; Start 07/18/16 at 22:00; Stop 07/19/16 at 21:59; Status DC Meropenem 1 gm/ Sodium Chloride 100 ml @ 200 mls/hr Q8HRS IV Last administered on 07/20/16 05:21; Start 07/18/16 at 14:00; Stop 07/20/16 at 11:25; Status DC Micafungin Sodium 100 mg/Dextrose 100 ml @ 100 mls/hr Q24H IV Last administered on 07/19/16 15:05; Start 07/18/16 at 14:00; Stop 07/20/16 at 11:25; Status DC Daptomycin/Sodium Chloride (Cubicin/Iv Sodium Chloride 0.9% 50ml) 50 ml @ 100 mls/hr Q24H IV Last administered on 07/19/16 16:56; Start 07/18/16 at 15:00; Stop 07/20/16 at 11:25; Status DC Alteplase, Recombinant (Cathflo) 2 mg 1X ONCE INT CAT Last administered on 07/19 06:24; Start 07/19/16 at 07:00; Stop 07/19/16 at 07:01; Status DC Gentamicin Sulfate 1 each 1 each PRN DAILY PRN MC SEE COMMENTS Last administered on 07/25/16 15:31; Start 07/19/16 at 12:15; Stop 07/25/16 at 16:14 ; Status DC Gentamicin Sulfate/Sodium Chloride (Iv Sodium Chloride 0.9% 100ml) 106.75 ml @ 106.75 mls/hr Q24H IV Last administered on 07/25/16 15:31; Start 07/19/16 at 13 :00; Stop 07/25/16 at 16:12; Status DC Gentamicin Sulfate 1 each 1 each 1X ONCE MC Last administered on 07/19/16 23: 00; Start 07/19/16 at 23:00; Stop 07/19/16 at 23:01; Status DC Sodium Chloride/ Sodium Acetate/ Potassium Chloride/ Potassium Acetate/ Potassium Phosphate/ Magnesium Sulfate/ Calcium Gluconate/ Multivitamins/ Minerals/Chromium/ Copper/Manganese/ Seleni/Zn/Total Parenteral Nutrition/Amino Acids/Dextrose/ Fat Emulsion Intravenous (Sodium Chlori... 1,920 ml @ 80 mls/ hr TPN CONT IV Last administered on 07/19/16 20:51; Start 07/19/16 at 22:00; Stop 07/20/16 at 21:59; Status DC Hyoscyamine (Anaspaz) 0.125 mg PRN Q6HRS PRN PO BLADDER SPASM; Start 07/20/16 at 09:00; Stop 07/31/16 at 15:01; Status DC Phenazopyridine HCl 200 mg 200 mg PRN TID PRN PO BLADDER SPASM Last administered on 07/21/16 20:14; Start 07/20/16 at 09:00; Stop 07/31/16 at 15:01; Status DC Linezolid 300 ml @ 300 mls/hr Q12HR IV Last administered on 07/25/16 09:02; Start 07/20/16 at 12:00; Stop 07/25/16 at 16:12; Status DC Sodium Chloride 220 meq/Sodium Acetate 90 meq/ Potassium Chloride 50 meq/ Potassium Acetate 15 meq/Potassium Phosphate 10 mmol/ Magnesium Sulfate 50 meq/ Calcium Gluconate 3 meq/ Multivitamins/ Minerals 10 ml/ Chromium/Copper/ Manganese/Seleni/ Zn 1 ml/Total Parenteral Nutrition/Amino Acids/Dextro... 1, 920 ml @ 80 mls/hr TPN CONT IV Last administered on 07/20/16 21:30; Start 07/20/16 at 22:00; Stop 07/21/16 at 21:59; Status DC Sodium Chloride/ Sodium Acetate/ Potassium Chloride/ Potassium Acetate/ Potassium Phosphate/ Magnesium Sulfate/ Multivitamins/ Minerals/Chromium/ Copper /Manganese/ Seleni/Zn/Total Parenteral Nutrition/Amino Acids/Dextrose/ Fat Emulsion Intravenous (Sodium Chloride/ Potass... 1,920 ml @ 80 mls/hr TPN CONT IV Last administered on 07/21/16 22:05; Start 07/21/16 at 22:00; Stop at 21:59; Status DC Alteplase, Recombinant 2 mg 2 mg PRN DAILY PRN INT CAT INFLAMMATION Last administered on 07/27/16 11:31; Start 07/21/16 at 15:00 Sodium Chloride 220 meq/Sodium Acetate 90 meq/ Potassium Chloride 50 meq/ Potassium Acetate 15 meq/Potassium Phosphate 10 mmol/ Magnesium Sulfate 50 meq/ Multivitamins/ Minerals 10 ml/ Chromium/Copper/ Manganese/Seleni/ Zn 1 ml/Total Parenteral Nutrition/Amino Acids/Dextrose/ Fat Emuls... 1,920 ml @ 80 mls/hr TPN CONT IV Last administered on 07/22/16 20:53; Start 07/22/16 at 22:00; Stop 07/23/16 at 21:59; Status DC Sodium Chloride/ Sodium Acetate/ Potassium Chloride/ Potassium Acetate/ Potassium Phosphate/ Magnesium Sulfate/ Multivitamins/ Minerals/Chromium/ Copper /Manganese/ Seleni/Zn/Total Parenteral Nutrition/Amino Acids/Dextrose/ Fat Emulsion Intravenous (Sodium Chloride/ Potass... 1,920 ml @ 80 mls/hr TPN CONT IV Last administered on 07/23/16 21:16; Start 07/23/16 at 22:00; Stop 07/24 at 21:59; Status DC Gentamicin Sulfate 1 each 1 each 1X ONCE MC ; Start 07/23/16 at 22:00; Stop 07/23 at 22:01; Status Cancel Sodium Chloride/ Sodium Acetate/ Potassium Chloride/ Potassium Acetate/ Potassium Phosphate/ Magnesium Sulfate/ Multivitamins/ Minerals/Chromium/ Copper /Manganese/ Seleni/Zn/Total Parenteral Nutrition/Amino Acids/Dextrose/ Fat Emulsion Intravenous (Sodium Chloride/ Potass... 1,920 ml @ 80 mls/hr TPN CONT IV Last administered on 07/24/16 21:15; Start 07/24/16 at 22:00; Stop 04/30 at 21:59; Status DC Gentamicin Sulfate 1 each 1X ONCE MC ; Start 07/25/16 at 12:30; Stop 07/25/16 at 12:31; Status Cancel Amlodipine Besylate 5 mg 5 mg DAILY PO Last administered on 07/27/16 11:12; Start 07/25/16 at 12:00; Stop 07/29/16 at 08:44; Status DC Sodium Chloride 220 meq/Sodium Acetate 90 meq/ Potassium Chloride 30 meq/ Potassium Acetate 15 meq/Potassium Phosphate 10 mmol/ Magnesium Sulfate 50 meq/ Multivitamins/ Minerals 10 ml/ Chromium/Copper/ Manganese/Seleni/ Zn 1 ml/Total Parenteral Nutrition/Amino Acids/Dextrose/ Fat Emuls... 1,920 ml @ 80 mls/hr TPN CONT IV Last administered on 07/25/16 22:25; Start 07/25/16 at 22:00; Stop 07/26/16 at 21:59; Status DC Sodium Chloride/ Sodium Acetate/ Potassium Chloride/ Potassium Acetate/ Potassium Phosphate/ Magnesium Sulfate/ Multivitamins/ Minerals/Chromium/ Copper /Manganese/ Seleni/Zn/Total Parenteral Nutrition/Amino Acids/Dextrose/ Fat Emulsion Intravenous (Sodium Chloride/ Potass... 1,920 ml @ 80 mls/hr TPN CONT IV Last administered on 07/26/16 23:16; Start 07/26/16 at 22:00; Stop at 21:59; Status DC Furosemide 20 mg 20 mg 1X ONCE IVP Last administered on 07/27/16 11:31; Start 07/27/16 at 09:00; Stop 07/27/16 at 09:01; Status DC Daptomycin 340 mg/ Sodium Chloride 50 ml @ 100 mls/hr Q24H IV Last administered on 07/29/16 15:05; Start 07/27/16 at 13:00; Stop 07/30/16 at 07:25 ; Status DC Piperacillin Sod/ Tazobactam Sod 3.375 gm/Sodium Chloride 50 ml @ 100 mls/hr Q6HRS IV Last administered on 07/30/16 05:30; Start 07/27/16 at 12:30; Stop at 07:25; Status DC Fluconazole/ Sodium Chloride 100 ml @ 100 mls/hr Q24H IV Last administered on 07/28/16 13:32; Start 07/27/16 at 13:00; Stop 07/29/16 at 00:53; Status DC Sodium Chloride 1,000 ml @ 1,000 mls/hr 1X ONCE IV Last administered on 12:34; Start 07/27/16 at 12:30; Stop 07/27/16 at 13:29; Status DC Sodium Chloride 220 meq/Sodium Acetate 90 meq/ Potassium Chloride 30 meq/ Potassium Acetate 15 meq/Potassium Phosphate 10 mmol/ Magnesium Sulfate 45 meq/ Multivitamins/ Minerals 10 ml/ Chromium/Copper/ Manganese/Seleni/ Zn 1 ml/Total Parenteral Nutrition/Amino Acids/Dextrose/ Fat Emuls... 1,920 ml @ 80 mls/hr TPN CONT IV Last administered on 07/27/16 22:38; Start 07/27/16 at 22:00; Stop 07/28/16 at 21:59; Status DC Sodium Chloride (Iv Sodium Chloride 0.9% 1000ml Bag) 1,000 ml @ 45 mls/hr [id number] IV Last administered on 07/28/16 03:24; Start 07/27/16 at 17:00; Stop 07/28/16 at 10:27; Status DC Acetaminophen 650 mg 650 mg PRN Q6HRS PRN [place] fever Last administered on 03:57; Start 07/27/16 at 16:30; Stop 07/29/16 at 08:33; Status DC Sodium Chloride 1,000 ml @ 427.5 mls/ hr Q2H21M IV Last administered on 19:30; Start 07/27/16 at 19:30; Stop 07/27/16 at 23:30; Status DC Sodium Chloride 220 meq/Sodium Acetate 90 meq/ Potassium Chloride 30 meq/ Potassium Acetate 15 meq/Potassium Phosphate 10 mmol/ Magnesium Sulfate 45 meq/ Multivitamins/ Minerals 10 ml/ Chromium/Copper/ Manganese/Seleni/ Zn 1 ml/Total Parenteral Nutrition/Amino Acids/Dextrose/ Fat Emuls... 1,920 ml @ 80 mls/hr TPN CONT IV Last administered on 07/28/16 21:43; Start 07/28/16 at 22:00; Stop 07/29/16 at 21:59; Status DC Micafungin Sodium/ Dextrose (Mycamine) 100 ml @ 100 mls/hr Q24H IV Last administered on 08/11/16 00:56; Start 07/29/16 at 01:00 Lorazepam (Ativan) 0.05 mg PRN Q4HRS PRN IV ANXIETY / AGITATION; Start at 02:30; Stop 07/29/16 at 02:48; Status DC Lorazepam (Ativan) 0.5 mg PRN Q4HRS PRN IV ANXIETY / AGITATION Last administered on 08/09/16 17:19; Start 07/29/16 at 03:00 Acetaminophen (Tylenol) 650 mg PRN Q4HRS PRN TN MILD PAIN / TEMP; Start at 08:30 Ketorolac Tromethamine (Toradol) 30 mg PRN Q6HRS PRN IV PAIN/FEVER Last administered on 07/30/16 00:50; Start 07/29/16 at 08:30; Stop 07/30/16 at 13:01 ; Status DC Pantoprazole Sodium 40 mg 40 mg DAILYAC IVP Last administered on 08/10/16 08: 13; Start 07/29/16 at 09:00 Sodium Chloride 1,000 ml @ 45 mls/hr [id number] IV Last administered on 09:17; Start 07/29/16 at 08:45; Stop 07/31/16 at 15:01; Status DC Sodium Chloride/ Sodium Acetate/ Potassium Chloride/ Potassium Acetate/ Potassium Phosphate/ Magnesium Sulfate/ Multivitamins/ Minerals/Chromium/ Copper /Manganese/ Seleni/Zn/Total Parenteral Nutrition/Amino Acids/Dextrose/ Fat Emulsion Intravenous (Sodium Chloride/ Potass... 1,920 ml @ 80 mls/hr TPN CONT IV Last administered on 07/29/16 22:06; Start 07/29/16 at 22:00; Stop at 21:59; Status DC Lidocaine/Sodium Bicarbonate 20 ml 20 ml STK-MED ONCE IJ ; Start 07/29/16 at 13: 13; Stop 07/29/16 at 13:14; Status DC Heparin Sodium/ Sodium Chloride 500 ml @ As Directed STK-MED ONCE .ROUTE ; Start 07/29/16 at 13:13; Stop 07/29/16 at 13:14; Status DC Lidocaine/ Epinephrine (Xylocaine 1%-Epi 1:100,000) 20 ml STK-MED ONCE .ROUTE ; Start 07/29/16 at 13:22; Stop 07/29/16 at 13:23; Status DC Midazolam HCl (Versed) 5 mg STK-MED ONCE .ROUTE ; Start 07/29/16 at 13:32; Stop 07/29/16 at 13:33; Status DC Fentanyl Citrate (Fentanyl 5ml Vial) 250 mcg STK-MED ONCE .ROUTE ; Start at 13:32; Stop 07/29/16 at 13:33; Status DC Heparin Sodium/ Sodium Chloride 1,000 unit 1X ONCE IART Last administered on 13:45; Start 07/29/16 at 13:45; Stop 07/29/16 at 13:48; Status DC Midazolam HCl (Versed) 5 mg 1X ONCE IV Last administered on 07/29/16 13:45; Start 07/29/16 at 13:45; Stop 07/29/16 at 13:48; Status DC Fentanyl Citrate (Fentanyl 5ml Vial) 250 mcg 1X ONCE IV Last administered on 13:45; Start 07/29/16 at 13:45; Stop 07/29/16 at 13:48; Status DC Lidocaine/ Epinephrine 20 ml 20 ml 1X ONCE IJ Last administered on 07/29/16 13:45; Start 07/29/16 at 13:45; Stop 07/29/16 at 13:48; Status DC Sodium Chloride 220 meq/Sodium Acetate 90 meq/ Potassium Chloride 15 meq/ Potassium Acetate 30 meq/Potassium Phosphate 10 mmol/ Magnesium Sulfate 45 meq/ Multivitamins/ Minerals 10 ml/ Chromium/Copper/ Manganese/Seleni/ Zn 1 ml/Total Parenteral Nutrition/Amino Acids/Dextrose/ Fat Emuls... 1,920 ml @ 80 mls/hr TPN CONT IV ; Start 07/30/16 at 22:00; Stop 07/31/16 at 21:59; Status DC Norepinephrine Bitartrate 8 mg/ Sodium Chloride 258 ml @ 1.93 mls/hr 1X ONCE IV Last administered on 07/30/16 11:17; Start 07/30/16 at 11:15; Stop at 15:43; Status DC Norepinephrine Bitartrate/Sodium Chloride (Levophed Vial/ Iv Sodium Chloride 0.9 % 250ml) 258 ml @ 0 mls/hr CONT PRN IV SEE I/O RECORD Last administered on 08/02 19:54; Start 07/30/16 at 11:15; Stop 08/04/16 at 09:29; Status DC Furosemide 60 mg 60 mg 1X ONCE IVP Last administered on 07/30/16 11:14; Start 07/30/16 at 11:15; Stop 07/30/16 at 11:16; Status DC Sodium Chloride 500 ml @ 500 mls/hr Q1H IV Last administered on 07/30/16 17: 04; Start 07/30/16 at 14:30; Stop 07/30/16 at 15:29; Status DC Albumin Human 100 ml @ 100 mls/hr Q8HRS IV Last administered on 07/31/16 05: 37; Start 07/30/16 at 14:30; Stop 07/31/16 at 06:59; Status DC Furosemide/Sodium Chloride (Lasix Drip/Iv Sodium Chloride 0.9% 100ml) 100 ml @ 0 mls/hr CONT PRN IV SEE I/O RECORD Last administered on 07/31/16 03:17; Start 07/30/16 at 14:30; Stop 08/01/16 at 13:19; Status DC Ondansetron HCl (Zofran) 8 mg PRN Q8HRS PRN IV NAUSEA/VOMITING Last administered on 07/30/16 14:38; Start 07/30/16 at 14:30 Sodium Bicarbonate 50 meq 50 meq 1X ONCE IV Last administered on 07/30/16 14: 43; Start 07/30/16 at 14:30; Stop 07/30/16 at 14:31; Status DC Heparin Sodium/ Sodium Chloride 500 ml @ As Directed STK-MED ONCE .ROUTE ; Start 07/30/16 at 14:49; Stop 07/30/16 at 14:50; Status DC Lidocaine HCl 20 ml STK-MED ONCE .ROUTE ; Start 07/30/16 at 14:49; Stop at 14:50; Status DC Midazolam HCl (Versed) 2 mg STK-MED ONCE .ROUTE ; Start 07/30/16 at 15:19; Stop 07/30/16 at 15:20; Status DC Heparin Sodium/ Sodium Chloride 1,000 unit 1X ONCE IART Last administered on 15:44; Start 07/30/16 at 15:45; Stop 07/30/16 at 15:46; Status DC Midazolam HCl (Versed) 1.5 mg 1X ONCE IV Last administered on 07/30/16 15:44 ; Start 07/30/16 at 15:45; Stop 07/30/16 at 15:46; Status DC Lidocaine HCl 20 ml 1X ONCE IJ Last administered on 07/30/16 15:44; Start at 15:45; Stop 07/30/16 at 15:46; Status DC Heparin Sodium (Porcine) 64981 unit 10,000 unit STK-MED ONCE .ROUTE ; Start at 15:54; Stop 07/30/16 at 15:55; Status DC Fentanyl Citrate 30 ml @ 0 mls/hr CONT PRN PRN IV PROTOCOL Last administered on 08/08/16 10:21; Start 07/30/16 at 16:45; Stop 08/08/16 at 11:03; Status DC Sodium Bicarbonate/ Dextrose 1,150 ml @ 125 mls/hr 1X ONCE IV Last administered on 07/30/16 18:34; Start 07/30/16 at 17:30; Stop 07/31/16 at 02:41 ; Status DC Succinylcholine Chloride 200 mg 200 mg STK-MED ONCE .ROUTE ; Start 07/30/16 at 19:47; Stop 07/30/16 at 19:48; Status DC Propofol 100 ml @ As Directed STK-MED ONCE IV ; Start 07/30/16 at 19:48; Stop 07/30/16 at 19:49; Status DC Midazolam HCl (Versed 100mg/ 100ml Premix) 100 ml @ 0 mls/hr CONT PRN IV SEE I/ O RECORD Last administered on 08/03/16 12:18; Start 07/30/16 at 21:15 Sodium Bicarbonate 50 meq 50 meq 1X ONCE IV Last administered on 07/30/16 22: 15; Start 07/30/16 at 22:30; Stop 07/30/16 at 22:31; Status DC Dopamine HCl/ Dextrose 250 ml @ 11.513 mls/ hr CONT PRN IV SEE I/O RECORD Last administered on 07/31/16 20:16; Start 07/30/16 at 22:15; Stop 08/04/16 at 09:29; Status DC Sodium Bicarbonate/ Dextrose 1,150 ml @ 125 mls/hr Q9H12M IV Last administered on 08/01/16 09:30; Start 07/31/16 at 03:00; Stop 08/01/16 at 13:19 ; Status DC Propofol (Diprivan) 1,000 mg STK-MED ONCE IV ; Start 07/30/16 at 20:00; Stop at 08:16; Status DC Succinylcholine Chloride 200 mg 200 mg STK-MED ONCE .ROUTE ; Start 07/30/16 at 20:00; Stop 07/31/16 at 08:16; Status DC Tigecycline 50 mg/ Sodium Chloride 50 ml @ 100 mls/hr Q12HR IV Last administered on 08/04/16 09:01; Start 07/31/16 at 21:00; Stop 08/04/16 at 10:00 ; Status DC Tigecycline/ Sodium Chloride (Tygacil/Iv Sodium Chloride 0.9% 100ml) 100 ml @ 200 mls/hr 1X ONCE IV Last administered on 07/31/16 09:22; Start 07/31/16 at 09:00; Stop 07/31/16 at 09:29; Status DC Darbepoetin Sarbjit 60 mcg 60 mcg WEEKLYHS SQ Last administered on 08/07/16 21:41 ; Start 07/31/16 at 21:00 Albumin Human 100 ml @ 100 mls/hr 1X ONCE IV Last administered on 07/31/16 11:40; Start 07/31/16 at 11:15; Stop 07/31/16 at 12:14; Status DC Albumin Human 100 ml @ 100 mls/hr 1X ONCE IV Last administered on 07/31/16 12:03; Start 07/31/16 at 11:15; Stop 07/31/16 at 12:14; Status DC Sodium Chloride (Iv Sodium Chloride 0.9% 1000ml Bag) 1,000 ml @ 1,000 mls/hr Q1H PRN IV hypotension; Start 07/31/16 at 11:33; Stop 07/31/16 at 17:32; Status DC Info (PHARMACY MONITORING -- do not chart) 1 each PRN DAILY PRN MC SEE COMMENTS ; Start 07/31/16 at 11:45 Info (PHARMACY MONITORING -- do not chart) 1 each PRN DAILY PRN MC SEE COMMENTS ; Start 07/31/16 at 11:45; Status UNV Hydrocortisone Sodium Succinate (Solu-Cortef) 100 mg Q8HRS IV Last administered on 08/04/16 06:16; Start 08/01/16 at 07:00; Stop 08/04/16 at 09:29 ; Status DC Albuterol/ Ipratropium (Duoneb) 3 ml RTQID NEB Last administered on 08/11/16 08:49; Start 08/01/16 at 08:00 Albuterol/ Ipratropium 3 ml 3 ml STK-MED ONCE .ROUTE Last administered on 07:34; Start 08/01/16 at 06:59; Stop 08/01/16 at 07:00; Status DC Sodium Chloride 1,000 ml @ 1,000 mls/hr Q1H PRN IV hypotension; Start 08/01/16 at 06:57; Stop 08/01/16 at 12:56; Status DC Albumin Human (Albuminar) 200 ml @ 200 mls/hr 1X PRN PRN IV Hypotension; Start 08/01/16 at 07:00; Stop 08/01/16 at 12:59; Status DC Info (PHARMACY MONITORING -- do not chart) 1 each PRN DAILY PRN MC SEE COMMENTS ; Start 08/01/16 at 07:00; Status UNV Info 1 each 1 each PRN DAILY PRN MC SEE COMMENTS Last administered on 14:40; Start 08/01/16 at 13:30 Sodium Chloride 220 meq/Sodium Acetate 90 meq/ Potassium Chloride 15 meq/ Potassium Acetate 30 meq/Potassium Phosphate 10 mmol/ Magnesium Sulfate 45 meq/ Multivitamins/ Minerals 10 ml/ Chromium/Copper/ Manganese/Seleni/ Zn 1 ml/Total Parenteral Nutrition/Amino Acids/Dextrose/ Fat Emuls... 1,920 ml @ 80 mls/hr TPN CONT IV Last administered on 08/01/16 21:56; Start 08/01/16 at 22:00; Stop 08/02/16 at 21:59; Status DC Potassium Chloride (KCl Premix 20meq) 50 ml @ 50 mls/hr Q1H IV Last administered on 08/01/16 19:05; Start 08/01/16 at 17:00; Stop 08/01/16 at 18:59 ; Status DC Insulin Aspart 0-6 UNITS TIDWMEALS SQ Last administered on 08/02/16 11:33; Start 08/02/16 at 12:00; Stop 08/02/16 at 14:34; Status DC Sodium Chloride 220 meq/Sodium Acetate 90 meq/ Potassium Chloride 15 meq/ Potassium Acetate 30 meq/Magnesium Sulfate 45 meq/ Multivitamins/ Minerals 10 ml / Chromium/Copper/ Manganese/Seleni/ Zn 1 ml/Total Parenteral Nutrition/Amino Acids/Dextrose/ Fat Emulsion Intravenous 1,920 ml @ 80 mls/hr TPN CONT IV Last administered on 08/02/16 21:34; Start 08/02/16 at 22:00; Stop 08/03/16 at 21:59; Status DC Levofloxacin/ Dextrose 150 ml @ 100 mls/hr 1X ONCE IV Last administered on 14:35; Start 08/02/16 at 14:00; Stop 08/02/16 at 15:29; Status DC Daptomycin/Sodium Chloride (Cubicin/Iv Sodium Chloride 0.9% 50ml) 50 ml @ 100 mls/hr ONCE ONCE IV Last administered on 08/02/16 14:34; Start 08/02/16 at 15 :00; Stop 08/02/16 at 15:29; Status DC Insulin Aspart 0-6 UNITS Q6HRS SQ Last administered on 08/10/16 15:21; Start 08/02/16 at 18:00 Sodium Chloride (Iv Sodium Chloride 0.9% 1000ml Bag) 1,000 ml @ 1,000 mls/hr Q1H PRN IV hypotension; Start 08/03/16 at 07:26; Stop 08/03/16 at 13:25; Status DC Diphenhydramine HCl (Benadryl) 25 mg 1X PRN PRN IV ITCHING; Start 08/03/16 at 07:30; Stop 08/04/16 at 07:29; Status DC Diphenhydramine HCl (Benadryl) 25 mg 1X PRN PRN IV ITCHING; Start 08/03/16 at 07:30; Stop 08/04/16 at 07:29; Status DC Sodium Chloride (Normal Saline Flush) 10 ml 1X PRN PRN IV AP catheter pack; Start 08/03/16 at 07:30; Stop 08/04/16 at 07:29; Status DC Sodium Chloride 10 ml 10 ml 1X PRN PRN IV [employer] catheter pack; Start 08/03/16 at 07:30; Stop 08/04/16 at 07:29; Status DC Sodium Chloride (Iv Sodium Chloride 0.9% 1000ml Bag) 1,000 ml @ 400 mls/hr Q2H30M PRN IV PATENCY; Start 08/03/16 at 07:26; Stop 08/03/16 at 19:25; Status DC Info 1 each 1 each PRN DAILY PRN MC SEE COMMENTS; Start 08/03/16 at 07:30; Status UNV Albumin Human 200 ml @ 200 mls/hr Q2HR IV Last administered on 08/03/16 10:00 ; Start 08/03/16 at 08:44; Stop 08/03/16 at 10:59; Status DC Sodium Chloride 160 meq/Sodium Acetate 60 meq/ Potassium Chloride 15 meq/ Potassium Acetate 30 meq/Magnesium Sulfate 25 meq/ Multivitamins/ Minerals 10 ml / Chromium/Copper/ Manganese/Seleni/ Zn 1 ml/Total Parenteral Nutrition/Amino Acids/Dextrose/ Fat Emulsion Intravenous 1,500 ml @ 62.5 mls/hr TPN CONT IV Last administered on 08/03/16 22:52; Start 08/03/16 at 22:00; Stop 08/04/16 at 21:59; Status DC Levofloxacin/ Dextrose 100 ml @ 100 mls/hr 1X ONCE IV Last administered on 10:50; Start 08/04/16 at 07:30; Stop 08/04/16 at 08:30; Status DC Daptomycin 450 mg/ Sodium Chloride 50 ml @ 100 mls/hr ONCE ONCE IV Last administered on 08/04/16 09:55; Start 08/04/16 at 08:00; Stop 08/04/16 at 08:30 ; Status DC Tigecycline/ Sodium Chloride (Tygacil/Iv Sodium Chloride 0.9% 50ml) 50 ml @ 100 mls/hr Q12HR IV Last administered on 08/09/16 07:20; Start 08/04/16 at 21: 00; Stop 08/09/16 at 09:42; Status DC Hydrocortisone Sodium Succinate 50 mg 50 mg Q8HRS IV Last administered on 05:39; Start 08/04/16 at 14:00; Stop 08/05/16 at 11:12; Status DC Furosemide 100 mg/ Sodium Chloride 100 ml @ 0 mls/hr CONT PRN IV SEE I/O RECORD Last administered on 08/09/16 06:43; Start 08/04/16 at 11:30; Stop 08/09 at 11:31; Status DC Sodium Chloride 160 meq/Sodium Acetate 60 meq/ Potassium Chloride 15 meq/ Potassium Acetate 30 meq/Magnesium Sulfate 25 meq/ Multivitamins/ Minerals 10 ml / Chromium/Copper/ Manganese/Seleni/ Zn 1 ml/Total Parenteral Nutrition/Amino Acids/Dextrose/ Fat Emulsion Intravenous 1,500 ml @ 62.5 mls/hr TPN CONT IV Last administered on 08/04/16 21:45; Start 08/04/16 at 22:00; Stop 08/06/16 at 08:48; Status DC Sodium Chloride 1,000 ml @ 1,000 mls/hr Q1H PRN IV hypotension; Start 08/04/16 at 12:00; Stop 08/04/16 at 17:59; Status DC Sodium Chloride (Iv Sodium Chloride 0.9% 1000ml Bag) 1,000 ml @ 400 mls/hr Q2H30M PRN IV PATENCY; Start 08/04/16 at 12:00; Stop 08/04/16 at 23:59; Status DC Info 1 each 1 each PRN DAILY PRN MC SEE COMMENTS; Start 08/04/16 at 16:30; Status UNV Levofloxacin/ Dextrose 100 ml @ 100 mls/hr 1X ONCE IV Last administered on 14:27; Start 08/05/16 at 14:00; Stop 08/05/16 at 14:59; Status DC Daptomycin/Sodium Chloride (Cubicin/Iv Sodium Chloride 0.9% 50ml) 50 ml @ 100 mls/hr 1X ONCE IV Last administered on 08/05/16 14:27; Start 08/05/16 at 14: 00; Stop 08/05/16 at 14:29; Status DC Heparin Sodium (Porcine) 10,000 unit STK-MED ONCE .ROUTE ; Start 08/05/16 at 09: 35; Stop 08/05/16 at 09:36; Status DC Lidocaine/Sodium Bicarbonate 20 ml 20 ml STK-MED ONCE IJ ; Start 08/05/16 at 09: 36; Stop 08/05/16 at 09:37; Status DC Heparin Sodium/ Sodium Chloride 500 ml @ As Directed STK-MED ONCE .ROUTE ; Start 08/05/16 at 09:36; Stop 08/05/16 at 09:37; Status DC Lidocaine/Sodium Bicarbonate (Buffered Lidocaine 1%) 2 ml 1X ONCE IJ Last administered on 08/05/16 10:04; Start 08/05/16 at 10:00; Stop 08/05/16 at 10:02 ; Status DC Heparin Sodium/ Sodium Chloride 60 unit 1X ONCE IV Last administered on 10:04; Start 08/05/16 at 10:00; Stop 08/05/16 at 10:02; Status DC Heparin Sodium (Porcine) 2,800 unit 1X ONCE INT CAT Last administered on 10:04; Start 08/05/16 at 10:00; Stop 08/05/16 at 10:02; Status DC Info (PHARMACY MONITORING -- do not chart) 1 each PRN DAILY PRN MC SEE COMMENTS ; Start 08/05/16 at 10:30; Stop 08/05/16 at 10:30; Status DC Info (PHARMACY MONITORING -- do not chart) 1 each PRN DAILY PRN MC SEE COMMENTS ; Start 08/05/16 at 10:30; Stop 08/05/16 at 10:30; Status DC Hydrocortisone Sodium Succinate 50 mg 50 mg BID IV Last administered on 07:49; Start 08/05/16 at 21:00; Stop 08/07/16 at 10:23; Status DC Sodium Chloride 160 meq/Sodium Acetate 60 meq/ Potassium Chloride 15 meq/ Potassium Acetate 30 meq/Magnesium Sulfate 25 meq/ Multivitamins/ Minerals 10 ml / Chromium/Copper/ Manganese/Seleni/ Zn 1 ml/Total Parenteral Nutrition/Amino Acids/Dextrose/ Fat Emulsion Intravenous 1,500 ml @ 62.5 mls/hr TPN CONT IV Last administered on 08/05/16 22:04; Start 08/05/16 at 22:00; Stop 08/06/16 at 21:59; Status DC Daptomycin 500 mg/ Sodium Chloride 50 ml @ 100 mls/hr Q24H IV Last administered on 08/10/16 15:12; Start 08/06/16 at 14:00 Sodium Chloride (Iv Sodium Chloride 0.9% 1000ml Bag) 1,000 ml @ 1,000 mls/hr Q1H PRN IV hypotension; Start 08/06/16 at 08:21; Stop 08/06/16 at 14:20; Status DC Diphenhydramine HCl (Benadryl) 25 mg 1X PRN PRN IV ITCHING; Start 08/06/16 at 08:30; Stop 08/07/16 at 08:29; Status DC Diphenhydramine HCl (Benadryl) 25 mg 1X PRN PRN IV ITCHING; Start 08/06/16 at 08:30; Stop 08/07/16 at 08:29; Status DC Sodium Chloride (Normal Saline Flush) 10 ml 1X PRN PRN IV AP catheter pack; Start 08/06/16 at 08:30; Stop 08/07/16 at 08:29; Status DC Sodium Chloride 10 ml 10 ml 1X PRN PRN IV [employer] catheter pack; Start 08/06/16 at 08:30; Stop 08/07/16 at 08:29; Status DC Sodium Chloride (Iv Sodium Chloride 0.9% 1000ml Bag) 1,000 ml @ 400 mls/hr Q2H30M PRN IV PATENCY; Start 08/06/16 at 08:21; Stop 08/06/16 at 20:20; Status DC Info 1 each 1 each PRN DAILY PRN MC SEE COMMENTS; Start 08/06/16 at 08:30; Status UNV Albumin Human 200 ml @ 200 mls/hr 1X STAT IV Last administered on 08/06/16 10:09; Start 08/06/16 at 09:52; Stop 08/06/16 at 10:51; Status DC Sodium Chloride/ Sodium Acetate/ Potassium Chloride/ Potassium Acetate/ Magnesium Sulfate/ Multivitamins/ Minerals/Chromium/ Copper/Manganese/ Seleni/Zn /Total Parenteral Nutrition/Amino Acids/Dextrose/ Fat Emulsion Intravenous ( Sodium Chloride/ Infuvite Adult/ Multitrace-5 Conc/ Tpn - Tpn Flu... 1,500 ml @ 62.5 mls/hr TPN CONT IV Last administered on 08/06/16 21:57; Start at 22:00; Stop 08/07/16 at 21:59; Status DC Darbepoetin Sarbjit 60 mcg 60 mcg [id number] SQ ; Start 08/07/16 at 21:00; Status UNV Potassium Chloride (KCl Premix 20meq) 50 ml @ 50 mls/hr Q1H IV Last administered on 08/07/16 10:46; Start 08/07/16 at 08:00; Stop 08/07/16 at 09:59 ; Status DC Hydrocortisone Sodium Succinate 25 mg 25 mg BID IV ; Start 08/07/16 at 21:00; Stop 08/07/16 at 21:00; Status DC Sodium Chloride (Iv Sodium Chloride 0.9% 1000ml Bag) 1,000 ml @ 1,000 mls/hr Q1H PRN IV hypotension; Start 08/07/16 at 12:08; Stop 08/07/16 at 18:07; Status DC Diphenhydramine HCl (Benadryl) 25 mg 1X PRN PRN IV ITCHING; Start 08/07/16 at 12:15; Stop 08/08/16 at 12:14; Status DC Diphenhydramine HCl (Benadryl) 25 mg 1X PRN PRN IV ITCHING; Start 08/07/16 at 12:15; Stop 08/08/16 at 12:14; Status DC Sodium Chloride (Normal Saline Flush) 10 ml 1X PRN PRN IV AP catheter pack; Start 08/07/16 at 12:15; Stop 08/08/16 at 12:14; Status DC Sodium Chloride (Normal Saline Flush) 10 ml 1X PRN PRN IV [employer] catheter pack; Start 08/07/16 at 12:15; Stop 08/08/16 at 12:14; Status DC Info (PHARMACY MONITORING -- do not chart) 1 each PRN DAILY PRN MC SEE COMMENTS ; Start 08/07/16 at 12:15; Status UNV Info 1 each 1 each PRN DAILY PRN MC SEE COMMENTS; Start 08/07/16 at 12:15; Status UNV Sodium Chloride 160 meq/Sodium Acetate 60 meq/ Potassium Chloride 55 meq/ Potassium Acetate 30 meq/Magnesium Sulfate 25 meq/ Multivitamins/ Minerals 10 ml / Chromium/Copper/ Manganese/Seleni/ Zn 1 ml/Total Parenteral Nutrition/Amino Acids/Dextrose/ Fat Emulsion Intravenous 1,500 ml @ 62.5 mls/hr TPN CONT IV Last administered on 08/07/16 21:41; Start 08/07/16 at 22:00; Stop 08/08/16 at 21:59; Status DC Potassium Chloride (KCl Premix 20meq) 50 ml @ 50 mls/hr 1X ONCE IV Last administered on 08/08/16 09:04; Start 08/08/16 at 10:00; Stop 08/08/16 at 10:59 ; Status DC Fentanyl Citrate 25 mcg 25 mcg PRN Q4HRS PRN IV PAIN Last administered on 15:04; Start 08/08/16 at 11:00 Potassium Chloride 50 ml @ 50 mls/hr 1X ONCE IV Last administered on 15:33; Start 08/08/16 at 11:15; Stop 08/08/16 at 12:14; Status DC Sodium Chloride 140 meq/Sodium Acetate 60 meq/ Potassium Chloride 70 meq/ Potassium Acetate 30 meq/Magnesium Sulfate 25 meq/ Multivitamins/ Minerals 10 ml / Chromium/Copper/ Manganese/Seleni/ Zn 1 ml/Total Parenteral Nutrition/Amino Acids/Dextrose/ Fat Emulsion Intravenous 1,500 ml @ 62.5 mls/hr TPN CONT IV Last administered on 08/08/16 21:42; Start 08/08/16 at 22:00; Stop 08/09/16 at 11:30; Status DC Tigecycline 50 mg/ Sodium Chloride 50 ml @ 100 mls/hr Q12HR IV ; Start at 09:42; Stop 08/09/16 at 10:03; Status DC Dextrose 1,000 ml @ 80 mls/hr [id number] IV ; Start 08/09/16 at 11:45; Stop at 11:57; Status DC Dextrose/Sodium Chloride 1,000 ml @ 50 mls/hr Q20H IV Last administered on 12:22; Start 08/09/16 at 12:00; Stop 08/10/16 at 10:09; Status DC Sodium Chloride 10 meq/Sodium Acetate 10 meq/ Potassium Chloride 40 meq/ Potassium Acetate 10 meq/Magnesium Sulfate 15 meq/ Multivitamins/ Minerals 10 ml / Chromium/Copper/ Manganese/Seleni/ Zn 1 ml/Total Parenteral Nutrition/Amino Acids/Dextrose/ Fat Emulsion Intravenous 1,512 ml @ 63 mls/hr TPN CONT IV Last administered on 08/10/16 10:44; Start 08/09/16 at 22:00; Stop 08/10/16 at 21:59; Status DC Dextrose 1,000 ml @ 100 mls/hr Q10H IV Last administered on 08/10/16 10:37; Start 08/10/16 at 10:15; Stop 08/10/16 at 13:48; Status DC Potassium Chloride 50 ml @ 50 mls/hr 1X ONCE IV Last administered on 10:39; Start 08/10/16 at 10:30; Stop 08/10/16 at 11:29; Status DC Dextrose 1,000 ml @ 100 mls/hr Q10H IV Last administered on 08/10/16 15:13; Start 08/10/16 at 14:00 Potassium Chloride/ Potassium Acetate/ Magnesium Sulfate/ Multivitamins/ Minerals/Chromium/ Copper/Manganese/ Seleni/Zn/Total Parenteral Nutrition/Amino Acids/Dextrose/ Fat Emulsion Intravenous (Infuvite Adult/ Multitrace-5 Conc/ Tpn - Tpn Fluid/ Dextrose 70%-Water Iv Soln/ Intralipid 20%) 1,512 ml @ 63 mls/ hr TPN CONT IV Last administered on 08/10/16 22:13; Start 08/10/16 at 22:00; Stop 08/11/16 at 21:59 Active Scripts Active Dilaudid (Hydromorphone Hcl) 4 Mg Tablet 4 Mg PO Q6HRS Phenazopyridine Hcl 200 Mg Tablet 200 Mg PO PRN TID PRN FENTANYL 50mcg/hr (Fentanyl) 1 Each Patch.td72 1 Patch TD Q3DAYS Anaspaz (Hyoscyamine Sulfate) 0.125 Mg Tab.rapdis 0.125 Mg PO Q6HRS PRN Cefpodoxime Proxetil 200 Mg Tablet 200 Mg PO BID Sertraline Hcl 50 Mg Tablet 100 Mg PO DAILY 30 Days Protonix (Pantoprazole Sodium) 40 Mg Tablet.dr 1 Tab PO DAILY Zinc Oxide 56.7 Gm Oint...g. 1 Sang TP BID Lidocaine 35.44 Gm Oint...g. 1 Sang TP BID Ondansetron Odt (Ondansetron) 4 Mg Tab.rapdis 8 Mg PO PRN Q8HRS PRN Gas-X (Simethicone) 80 Mg Tab.chew 80 Mg PO PRN QID PRN Reported Lorazepam 0.5 Mg Tablet 0.5 Mg PO PRN BID PRN Vitals/I & O Vital Sign - Last 24 Hours 08/10/16 08/10/16 08/10/16 08/10/16 11:00 12:00 12:00 12:15 Temp 98.1 98.1 Pulse 116 120 Resp 14 15 B/P 162/73 173/74 Pulse Ox 100 100 O2 Delivery Ventilator Ventilator Mechanical Ventilator Venturi Mask O2 Flow Rate 9.0 08/10/16 08/10/16 08/10/16 08/10/16 13:00 13:10 14:00 15:00 Pulse 110 101 99 Resp 22 23 20 B/P 142/84 135/62 127/64 Pulse Ox 99 99 99 99 O2 Delivery Venturi Mask Venturi Mask Venturi Mask Venturi Mask O2 Flow Rate 6.0 08/10/16 08/10/16 08/10/16 08/10/16 15:47 16:00 16:00 17:00 Temp 98.0 98.0 Pulse 102 96 Resp 24 20 B/P 140/72 134/67 Pulse Ox 100 99 100 O2 Delivery Mask Venturi Mask Venturi Mask Venturi Mask O2 Flow Rate 6.0 3.0 08/10/16 08/10/16 08/10/16 08/10/16 18:00 19:00 19:20 19:32 Temp 97.4 97.4 Pulse 96 64 Resp 16 20 B/P 135/62 116/63 Pulse Ox 100 100 100 O2 Delivery Venturi Mask Nasal Cannula Nasal Cannula Nasal Cannula O2 Flow Rate 3.0 3.0 3.0 3.0 08/10/16 08/10/16 08/10/16 08/10/16 20:00 21:00 22:00 23:00 Pulse 99 89 85 74 Resp 23 18 22 19 B/P 149/69 132/63 126/54 108/48 Pulse Ox 99 100 99 100 O2 Delivery Nasal Cannula Nasal Cannula Nasal Cannula Nasal Cannula O2 Flow Rate 2.0 2.0 2.0 2.0 08/11/16 08/11/16 08/11/16 08/11/16 00:05 00:05 01:00 02:00 Temp 97.9 97.9 Pulse 79 87 76 Resp B/P 133/79 107/57 123/82 Pulse Ox 100 100 100 O2 Delivery Nasal Cannula Nasal Cannula Nasal Cannula Nasal Cannula O2 Flow Rate 2.0 3.0 3.0 3.0 08/11/16 08/11/16 08/11/16 08/11/16 03:00 03:59 04:00 05:00 Temp 97.3 97.3 Pulse 58 98 62 Resp 14 B/P 115/52 135/53 113/54 Pulse Ox 100 100 100 O2 Delivery Nasal Cannula Nasal Cannula Nasal Cannula Nasal Cannula O2 Flow Rate 2.0 2.0 2.0 2.0 08/11/16 08/11/16 08/11/16 08/11/16 06:07 07:00 08:00 08:00 Temp 96.3 96.3 Pulse 55 88 52 Resp 24 B/P 98/51 148/74 109/68 Pulse Ox 100 100 100 O2 Delivery Nasal Cannula Nasal Cannula Nasal Cannula Nasal Cannula O2 Flow Rate 2.0 2.0 2.0 2.0 08/11/16 08/11/16 08:50 09:00 Pulse 76 Resp 23 B/P 123/82 Pulse Ox 100 100 O2 Delivery Nasal Cannula Nasal Cannula O2 Flow Rate 2.0 2.0 Intake and Output 08/10/16 08/10/16 08/11/16 15:00 23:00 07:00 Intake Total 290 ml 776 ml 1283 ml Output Total 180 ml 985 ml 890 ml Balance 110 ml -209 ml 393 ml Problem List Problems Medical Problems: (1) Abdominal pain Status: Acute (2) Enterocutaneous fistula Status: Acute (3) Sepsis Status: Acute (4) Urinary tract infection Status: Acute (5) UTI (urinary tract infection) Status: Acute Assessment Cholestasis from sepsis, general severity of illness +/- any drug contribution. Is improving. Plan of Care: Continue current Tx, Mgmt BENITA CALVILLO MD Aug 11, 2016 10:28
[2016-08-11] MEDS: PANTOPRAZOLE IV PUSH 40 MG VIAL. IVP SCH (10:32)
[2016-08-11] MEDS: LIDOCAINE 5% TOPICAL OINTMENT 35GM TUBE. TP SCH ×2 (10:33→21:31)
[2016-08-11] MEDS: ZINC OXIDE 20% TOPICAL OINTMENT 28GM TUBE. TP SCH ×2 (10:33→21:30)
--- NOTE | 2016-08-11 10:41 | PDOC ---
PROGRESS NOTES Subjective Subjective extubated . mumbles and moves arms and legs on command. lab reviewed.l sodium 152 and potassium 3.2 and bun 51 and creatinine 0.8. Objective Objective Vital Signs Date Time Temp Pulse Resp B/P Pulse Ox O2 Delivery O2 Flow Rate FiO2 08/11/16 09:00 76 23 123/82 100 Nasal Cannula 2.0 08/11/16 08:00 96.3 96.3 Intake and Output 08/11/16 07:00 Intake Total 2349 ml Output Total 2055 ml Balance 294 ml IV Total 2349 ml Output Urine Total 1055 ml Stool Total 350 ml Drainage Total 650 ml Physical Exam Abdomen: Soft Heart: Regular rate, Normal S1, Normal S2 Extremities: No edema General: Alert HEENT: Atraumatic Lungs: Clear to auscultation Neuro: Other (mumbles) Psych/Mental Status: Mood NL Skin: No rashes Assessment Assessment Problems Medical Problems:ana glabrata fungemia . acute hypoxic respiratory failure. extubated metabolic encephalopathy acute kidney injury due to ATN from sepsis. .improved bilateral lung infiltrates resolved disseminated intravascular coagulation. improved thrombocytopenia due to platelet antibody and sepsis. improved picc associated fungemia with sepsis . picc removed 4. Enterocutaneous fistula. 5. Enterovesical fistula. 6. Anemia of chronic disease. 7. Moderately severe protein calorie malnutrition. elevated bilirubin. suspect cholestasis hypokalemia hypernatremia (1) Abdominal pain Status: Acute (2) Enterocutaneous fistula Status: Acute (3) Sepsis Status: Acute (4) Urinary tract infection Status: Acute (5) UTI (urinary tract infection) Status: Acute Plan Plan of Care start TPN with hypotonic fluids continue D5W replete kcl PT and OT and ST continue iv micafungin and daptomycin Comment Review of Relevant I have reviewed the following items lucila (where applicable) has been applied. Labs Laboratory Tests Test 08/09/16 11:04 08/09/16 11:30 08/09/16 16:20 08/09/16 16:30 Glucose (Fingerstick) 142mg/dL (70-99) Prothrombin Time 15.3SEC (11.7-14.0) Prothromb Time International Ratio 1.3 (0.8-1.1) Activated Partial Thromboplast Time 37SEC (24-38) Fibrinogen 231mg/dL (200-440) O2 Saturation 98% (92-99) Arterial Blood pH 7.55 (7.35-7.45) Arterial Blood pCO2 at Patient Temp 33mmHg (35-46) Arterial Blood pO2 at Patient Temp 119mmHg (65-108) Arterial Blood HCO3 28mmol/L (21-28) Arterial Blood Base Excess 6mmol/L (-3-3) FiO2 35 Sodium Level 153mmol/L (136-145) Potassium Level 3.8mmol/L (3.5-5.1) Chloride Level 112mmol/L (98-107) Carbon Dioxide Level 34mmol/L (21-32) Anion Gap 7 (6-14) Blood Urea Nitrogen 83mg/dL (7-20) Creatinine 1.2mg/dL (0.6-1.0) Estimated GFR (Cockcroft-Gault) 55.3 Glucose Level 153mg/dL (70-99) Calcium Level 9.2mg/dL (8.5-10.1) Test 08/10/16 00:02 08/10/16 05:45 08/10/16 05:47 08/10/16 10:20 Glucose (Fingerstick) 132mg/dL (70-99) 109mg/dL (70-99) White Blood Count 7.6x10^3/uL (4.0-11.0) Red Blood Count 3.22x10^6/uL (3.50-5.40) Hemoglobin 8.3g/dL (12.0-15.5) Hematocrit 26.5% (36.0-47.0) Mean Corpuscular Volume 82fL (79-100) Mean Corpuscular Hemoglobin 26pg (25-35) Mean Corpuscular Hemoglobin Concent 31g/dL (31-37) Red Cell Distribution Width 21.8% (11.5-14.5) Platelet Count 71x10^3/uL (140-400) Neutrophils (%) (Auto) 74% (31-73) Lymphocytes (%) (Auto) 15% (24-48) Monocytes (%) (Auto) 9% (0-9) Eosinophils (%) (Auto) 1% (0-3) Basophils (%) (Auto) 1% (0-3) Neutrophils # (Auto) 5.6x10^3uL (1.8-7.7) Lymphocytes # (Auto) 1.1x10^3/uL (1.0-4.8) Monocytes # (Auto) 0.7x10^3/uL (0.0-1.1) Eosinophils # (Auto) 0.1x10^3/uL (0.0-0.7) Basophils # (Auto) 0.1x10^3/uL (0.0-0.2) Sodium Level 154mmol/L (136-145) Potassium Level 3.4mmol/L (3.5-5.1) Chloride Level 113mmol/L (98-107) Carbon Dioxide Level 33mmol/L (21-32) Anion Gap 8 (6-14) Blood Urea Nitrogen 78mg/dL (7-20) Creatinine 1.0mg/dL (0.6-1.0) Estimated GFR (Cockcroft-Gault) 68.2 Glucose Level 117mg/dL (70-99) Calcium Level 9.4mg/dL (8.5-10.1) Phosphorus Level 4.2mg/dL (2.6-4.7) Magnesium Level 2.4mg/dL (1.8-2.4) O2 Saturation 99% (92-99) Arterial Blood pH 7.51 (7.35-7.45) Arterial Blood pCO2 at Patient Temp 40mmHg (35-46) Arterial Blood pO2 at Patient Temp 161mmHg (65-108) Arterial Blood HCO3 31mmol/L (21-28) Arterial Blood Base Excess 7mmol/L (-3-3) FiO2 35 Test 08/10/16 15:01 08/10/16 15:18 08/10/16 18:30 08/11/16 00:54 O2 Saturation 98% (92-99) Arterial Blood pH 7.49 (7.35-7.45) Arterial Blood pCO2 at Patient Temp 35mmHg (35-46) Arterial Blood pO2 at Patient Temp 121mmHg (65-108) Arterial Blood HCO3 26mmol/L (21-28) Arterial Blood Base Excess 3mmol/L (-3-3) FiO2 30 Glucose (Fingerstick) 158mg/dL (70-99) 149mg/dL (70-99) 138mg/dL (70-99) Test 08/11/16 03:28 08/11/16 03:37 08/11/16 05:30 08/11/16 05:34 O2 Saturation 99% (92-99) Arterial Blood pH 7.48 (7.35-7.45) Arterial Blood pCO2 at Patient Temp 39mmHg (35-46) Arterial Blood pO2 at Patient Temp 161mmHg (65-108) Arterial Blood HCO3 29mmol/L (21-28) Arterial Blood Base Excess 5mmol/L (-3-3) FiO2 28 Glucose (Fingerstick) 119mg/dL (70-99) 135mg/dL (70-99) White Blood Count 5.9x10^3/uL (4.0-11.0) Red Blood Count 2.75x10^6/uL (3.50-5.40) Hemoglobin 7.3g/dL (12.0-15.5) Hematocrit 23.3% (36.0-47.0) Mean Corpuscular Volume 85fL (79-100) Mean Corpuscular Hemoglobin 26pg (25-35) Mean Corpuscular Hemoglobin Concent 31g/dL (31-37) Red Cell Distribution Width 23.5% (11.5-14.5) Platelet Count 75x10^3/uL (140-400) Neutrophils (%) (Auto) 69% (31-73) Lymphocytes (%) (Auto) 17% (24-48) Monocytes (%) (Auto) 10% (0-9) Eosinophils (%) (Auto) 3% (0-3) Basophils (%) (Auto) 1% (0-3) Neutrophils # (Auto) 4.1x10^3uL (1.8-7.7) Lymphocytes # (Auto) 1.0x10^3/uL (1.0-4.8) Monocytes # (Auto) 0.6x10^3/uL (0.0-1.1) Eosinophils # (Auto) 0.2x10^3/uL (0.0-0.7) Basophils # (Auto) 0.0x10^3/uL (0.0-0.2) Sodium Level 156mmol/L (136-145) Potassium Level 3.2mmol/L (3.5-5.1) Chloride Level 116mmol/L (98-107) Carbon Dioxide Level 31mmol/L (21-32) Anion Gap 9 (6-14) Blood Urea Nitrogen 51mg/dL (7-20) Creatinine 0.8mg/dL (0.6-1.0) Estimated GFR (Cockcroft-Gault) 88.2 Glucose Level 147mg/dL (70-99) Calcium Level 9.2mg/dL (8.5-10.1) Total Bilirubin 4.8mg/dL (0.2-1.0) Direct Bilirubin 2.7mg/dL (0.0-0.2) Aspartate Amino Transf (AST/SGOT) 32U/L (15-37) Alanine Aminotransferase (ALT/SGPT) 36U/L (14-59) Alkaline Phosphatase 187U/L (46-116) Creatine Kinase 35U/L (26-192) Total Protein 5.9g/dL (6.4-8.2) Albumin 2.5g/dL (3.4-5.0) Laboratory Tests Test 08/10/16 15:01 08/10/16 15:18 08/10/16 18:30 08/11/16 00:54 O2 Saturation 98% (92-99) Arterial Blood pH 7.49 (7.35-7.45) Arterial Blood pCO2 at Patient Temp 35mmHg (35-46) Arterial Blood pO2 at Patient Temp 121mmHg (65-108) Arterial Blood HCO3 26mmol/L (21-28) Arterial Blood Base Excess 3mmol/L (-3-3) FiO2 30 Glucose (Fingerstick) 158mg/dL (70-99) 149mg/dL (70-99) 138mg/dL (70-99) Test 08/11/16 03:28 08/11/16 03:37 08/11/16 05:30 08/11/16 05:34 O2 Saturation 99% (92-99) Arterial Blood pH 7.48 (7.35-7.45) Arterial Blood pCO2 at Patient Temp 39mmHg (35-46) Arterial Blood pO2 at Patient Temp 161mmHg (65-108) Arterial Blood HCO3 29mmol/L (21-28) Arterial Blood Base Excess 5mmol/L (-3-3) FiO2 28 Glucose (Fingerstick) 119mg/dL (70-99) 135mg/dL (70-99) White Blood Count 5.9x10^3/uL (4.0-11.0) Red Blood Count 2.75x10^6/uL (3.50-5.40) Hemoglobin 7.3g/dL (12.0-15.5) Hematocrit 23.3% (36.0-47.0) Mean Corpuscular Volume 85fL (79-100) Mean Corpuscular Hemoglobin 26pg (25-35) Mean Corpuscular Hemoglobin Concent 31g/dL (31-37) Red Cell Distribution Width 23.5% (11.5-14.5) Platelet Count 75x10^3/uL (140-400) Neutrophils (%) (Auto) 69% (31-73) Lymphocytes (%) (Auto) 17% (24-48) Monocytes (%) (Auto) 10% (0-9) Eosinophils (%) (Auto) 3% (0-3) Basophils (%) (Auto) 1% (0-3) Neutrophils # (Auto) 4.1x10^3uL (1.8-7.7) Lymphocytes # (Auto) 1.0x10^3/uL (1.0-4.8) Monocytes # (Auto) 0.6x10^3/uL (0.0-1.1) Eosinophils # (Auto) 0.2x10^3/uL (0.0-0.7) Basophils # (Auto) 0.0x10^3/uL (0.0-0.2) Sodium Level 156mmol/L (136-145) Potassium Level 3.2mmol/L (3.5-5.1) Chloride Level 116mmol/L (98-107) Carbon Dioxide Level 31mmol/L (21-32) Anion Gap 9 (6-14) Blood Urea Nitrogen 51mg/dL (7-20) Creatinine 0.8mg/dL (0.6-1.0) Estimated GFR (Cockcroft-Gault) 88.2 Glucose Level 147mg/dL (70-99) Calcium Level 9.2mg/dL (8.5-10.1) Total Bilirubin 4.8mg/dL (0.2-1.0) Direct Bilirubin 2.7mg/dL (0.0-0.2) Aspartate Amino Transf (AST/SGOT) 32U/L (15-37) Alanine Aminotransferase (ALT/SGPT) 36U/L (14-59) Alkaline Phosphatase 187U/L (46-116) Creatine Kinase 35U/L (26-192) Total Protein 5.9g/dL (6.4-8.2) Albumin 2.5g/dL (3.4-5.0) Microbiology 08/01/16 Blood Culture - Final, Complete NO GROWTH AFTER 5 DAYS 07/15/16 Urine Culture - Final, Complete 07/15/16 Urine Culture Result 1 (ROYA) - Final, Complete 07/15/16 Urine Culture Result 2 (ROYA) - Final, Complete 07/15/16 Antimicrobic Susceptibility - Final, Complete 07/29/16 Aerobic Culture - Final, Complete 07/29/16 Aerobic Culture Result 1 (ROYA) - Final, Complete Medications Current Medications Piperacillin Sod/ Tazobactam Sod/ Sodium Chloride (Zosyn/Iv Sodium Chloride 0.9 % 100ml) 100 ml @ 200 mls/hr 1X ONCE IV Last administered on 07/15/16 22:56; Start 07/15/16 at 22:00; Stop 07/15/16 at 22:29; Status DC Fentanyl Citrate 50 mcg 50 mcg PRN Q15MIN PRN IV PAIN GREATER THAN 3/10 Last administered on 07/16/16 00:30; Start 07/15/16 at 21:45; Stop 07/16/16 at 02:00; Status DC Sodium Chloride 1,000 ml @ 1,000 mls/hr 1X ONCE IV Last administered on 21:59; Start 07/15/16 at 22:00; Stop 07/15/16 at 22:59; Status DC Sodium Chloride (Iv Sodium Chloride 0.9% 500ml Bag) 500 ml @ 500 mls/hr 1X ONCE IV Last administered on 07/15/16 22:00; Start 07/15/16 at 22:00; Stop at 22:59; Status DC Ondansetron HCl (Zofran) 4 mg PRN Q8HRS PRN IV NAUSEA/VOMITING; Start 07/15/16 at 23:30; Stop 07/16/16 at 08:52; Status DC Fentanyl Citrate 50 mcg 50 mcg PRN Q2HR PRN IV SEVERE PAIN Last administered on 07/16/16 08:10; Start 07/15/16 at 23:30; Stop 07/16/16 at 08:52; Status DC Sodium Chloride (Iv Sodium Chloride 0.9% 1000ml Bag) 1,000 ml @ 150 mls/hr Q6H40M IV Last administered on 07/15/16 02:00; Start 07/15/16 at 23:45; Stop 07/16/16 at 08:52; Status DC Acetaminophen (Tylenol) 650 mg PRN Q4HRS PRN PO FEVER; Start 07/15/16 at 23:30; Stop 07/16/16 at 23:29; Status DC Info (Do NOT chart on this placeholder) 1 each PRN DAILY PRN MC NEEDS VERIFICATION; Start 07/16/16 at 03:00; Status Cancel Acetaminophen 650 mg 650 mg PRN Q4HRS PRN PO MILD PAIN / TEMP Last administered on 07/28/16 07:42; Start 07/16/16 at 08:45; Stop 07/29/16 at 08:33 ; Status DC Piperacillin Sod/ Tazobactam Sod 3.375 gm/Sodium Chloride 50 ml @ 100 mls/hr Q6HRS IV Last administered on 07/18/16 05:50; Start 07/16/16 at 10:00; Stop 07/18 at 13:28; Status DC Linezolid (Zyvox Premix) 300 ml @ 300 mls/hr Q12HR IV Last administered on 07/18 08:34; Start 07/16/16 at 10:00; Stop 07/18/16 at 13:28; Status DC Hydromorphone HCl (Dilaudid) 2 mg PRN Q4HRS PRN IV MODERATE PAIN Last administered on 08/09/16 06:39; Start 07/16/16 at 08:45; Stop 08/09/16 at 17:35 ; Status DC Hydromorphone HCl (Dilaudid) 4 mg PRN Q4HRS PRN IV SEVERE PAIN Last administered on 07/30/16 09:23; Start 07/16/16 at 08:45; Stop 07/31/16 at 15:01 ; Status DC Pantoprazole Sodium (Protonix) 40 mg DAILYAC PO Last administered on 07/27/16 11:11; Start 07/16/16 at 09:30; Stop 07/29/16 at 08:44; Status DC Hyoscyamine (Anaspaz) 0.125 mg Q6HRS PO Last administered on 07/20/16 05:20; Start 07/16/16 at 12:00; Stop 07/20/16 at 08:58; Status DC Phenazopyridine HCl (Pyridium) 200 mg TID PO Last administered on 07/20/16 08: 25; Start 07/16/16 at 09:30; Stop 07/20/16 at 08:58; Status DC Lorazepam (Ativan) 0.5 mg PRN BID PRN PO ANXIETY / AGITATION Last administered on 07/29/16 02:16; Start 07/16/16 at 08:45; Stop 07/31/16 at 15:01; Status DC Simethicone (Gas-X) 80 mg PRN Q4HRS PRN PO GAS / BLOATING Last administered on 07/24/16 22:30; Start 07/16/16 at 08:45; Stop 07/31/16 at 15:01; Status DC Zolpidem Tartrate 5 mg 5 mg PRN QHS PRN PO INSOMNIA Last administered on 23:14; Start 07/16/16 at 08:45; Stop 07/31/16 at 15:01; Status DC Potassium Chloride/Dextrose/ Sod Cl 1,000 ml @ 80 mls/hr [id number] IV Last administered on 07/16/16 10:54; Start 07/16/16 at 09:30; Stop 07/16/16 at 21:59; Status DC Fluconazole/ Sodium Chloride (Diflucan 200mg/ 100ml Premix) 100 ml @ 100 mls/ hr Q24H IV Last administered on 07/18/16 11:43; Start 07/16/16 at 11:00; Stop at 13:28; Status DC Info 1 each 1 each PRN DAILY PRN MC SEE COMMENTS Last administered on 12:41; Start 07/16/16 at 10:00; Stop 08/01/16 at 11:24; Status DC Sodium Chloride 220 meq/Sodium Acetate 90 meq/ Potassium Chloride 50 meq/ Potassium Acetate 15 meq/Potassium Phosphate 10 mmol/ Magnesium Sulfate 50 meq/ Calcium Gluconate 6 meq/ Multivitamins/ Minerals 10 ml/ Chromium/Copper/ Manganese/Seleni/ Zn 1 ml/Total Parenteral Nutrition/Amino Acids/Dextro... 1, 920 ml @ 80 mls/hr TPN CONT IV ; Start 07/16/16 at 22:00; Stop 07/16/16 at 22:00 ; Status DC Sodium Chloride/ Sodium Acetate/ Potassium Chloride/ Potassium Acetate/ Potassium Phosphate/ Magnesium Sulfate/ Calcium Gluconate/ Multivitamins/ Minerals/Chromium/ Copper/Manganese/ Seleni/Zn/Total Parenteral Nutrition/Amino Acids/Dextrose/ Fat Emulsion Intravenous (Sodium Chlori... 1,820 ml @ 75.833 mls/ hr TPN CONT IV Last administered on 07/16/16 21:03; Start 07/16/16 at 22: 00; Stop 07/17/16 at 21:59; Status DC Ondansetron HCl (Zofran) 4 mg PRN Q6HRS PRN IV NAUSEA/VOMITING Last administered on 07/21/16 08:48; Start 07/16/16 at 17:15; Stop 07/31/16 at 15:01; Status DC Diphenhydramine HCl (Benadryl) 25 mg PRN Q6HRS PRN PO ITCHING Last administered on 07/25/16 23:38; Start 07/16/16 at 17:45; Stop 07/31/16 at 15:01 ; Status DC Lidocaine (Xylocaine) 1 sang BID TP Last administered on 08/11/16 10:33; Start 07/17/16 at 09:00 Zinc Oxide 1 sang 1 sang BID TP Last administered on 08/11/16 10:33; Start at 09:30 Sodium Chloride/ Sodium Acetate/ Potassium Chloride/ Potassium Acetate/ Potassium Phosphate/ Magnesium Sulfate/ Calcium Gluconate/ Multivitamins/ Minerals/Chromium/ Copper/Manganese/ Seleni/Zn/Total Parenteral Nutrition/Amino Acids/Dextrose/ Fat Emulsion Intravenous (Sodium Chlori... 1,920 ml @ 80 mls/ hr TPN CONT IV Last administered on 07/17/16 22:13; Start 07/17/16 at 22:00; Stop 07/18/16 at 21:59; Status DC Furosemide 40 mg 40 mg 1X ONCE IVP Last administered on 07/18/16 11:43; Start 07/18/16 at 11:00; Stop 07/18/16 at 11:07; Status DC Sodium Chloride 220 meq/Sodium Acetate 90 meq/ Potassium Chloride 50 meq/ Potassium Acetate 15 meq/Potassium Phosphate 10 mmol/ Magnesium Sulfate 50 meq/ Calcium Gluconate 3 meq/ Multivitamins/ Minerals 10 ml/ Chromium/Copper/ Manganese/Seleni/ Zn 1 ml/Total Parenteral Nutrition/Amino Acids/Dextro... 1, 920 ml @ 80 mls/hr TPN CONT IV Last administered on 07/19/16 00:03; Start 07/18/16 at 22:00; Stop 07/19/16 at 21:59; Status DC Meropenem 1 gm/ Sodium Chloride 100 ml @ 200 mls/hr Q8HRS IV Last administered on 07/20/16 05:21; Start 07/18/16 at 14:00; Stop 07/20/16 at 11:25; Status DC Micafungin Sodium 100 mg/Dextrose 100 ml @ 100 mls/hr Q24H IV Last administered on 07/19/16 15:05; Start 07/18/16 at 14:00; Stop 07/20/16 at 11:25; Status DC Daptomycin/Sodium Chloride (Cubicin/Iv Sodium Chloride 0.9% 50ml) 50 ml @ 100 mls/hr Q24H IV Last administered on 07/19/16 16:56; Start 07/18/16 at 15:00; Stop 07/20/16 at 11:25; Status DC Alteplase, Recombinant (Cathflo) 2 mg 1X ONCE INT CAT Last administered on 07/19 06:24; Start 07/19/16 at 07:00; Stop 07/19/16 at 07:01; Status DC Gentamicin Sulfate 1 each 1 each PRN DAILY PRN MC SEE COMMENTS Last administered on 07/25/16 15:31; Start 07/19/16 at 12:15; Stop 07/25/16 at 16:14 ; Status DC Gentamicin Sulfate/Sodium Chloride (Iv Sodium Chloride 0.9% 100ml) 106.75 ml @ 106.75 mls/hr Q24H IV Last administered on 07/25/16 15:31; Start 07/19/16 at 13 :00; Stop 07/25/16 at 16:12; Status DC Gentamicin Sulfate 1 each 1 each 1X ONCE MC Last administered on 07/19/16 23: 00; Start 07/19/16 at 23:00; Stop 07/19/16 at 23:01; Status DC Sodium Chloride/ Sodium Acetate/ Potassium Chloride/ Potassium Acetate/ Potassium Phosphate/ Magnesium Sulfate/ Calcium Gluconate/ Multivitamins/ Minerals/Chromium/ Copper/Manganese/ Seleni/Zn/Total Parenteral Nutrition/Amino Acids/Dextrose/ Fat Emulsion Intravenous (Sodium Chlori... 1,920 ml @ 80 mls/ hr TPN CONT IV Last administered on 07/19/16 20:51; Start 07/19/16 at 22:00; Stop 07/20/16 at 21:59; Status DC Hyoscyamine (Anaspaz) 0.125 mg PRN Q6HRS PRN PO BLADDER SPASM; Start 07/20/16 at 09:00; Stop 07/31/16 at 15:01; Status DC Phenazopyridine HCl 200 mg 200 mg PRN TID PRN PO BLADDER SPASM Last administered on 07/21/16 20:14; Start 07/20/16 at 09:00; Stop 07/31/16 at 15:01; Status DC Linezolid 300 ml @ 300 mls/hr Q12HR IV Last administered on 07/25/16 09:02; Start 07/20/16 at 12:00; Stop 07/25/16 at 16:12; Status DC Sodium Chloride 220 meq/Sodium Acetate 90 meq/ Potassium Chloride 50 meq/ Potassium Acetate 15 meq/Potassium Phosphate 10 mmol/ Magnesium Sulfate 50 meq/ Calcium Gluconate 3 meq/ Multivitamins/ Minerals 10 ml/ Chromium/Copper/ Manganese/Seleni/ Zn 1 ml/Total Parenteral Nutrition/Amino Acids/Dextro... 1, 920 ml @ 80 mls/hr TPN CONT IV Last administered on 07/20/16 21:30; Start 07/20/16 at 22:00; Stop 07/21/16 at 21:59; Status DC Sodium Chloride/ Sodium Acetate/ Potassium Chloride/ Potassium Acetate/ Potassium Phosphate/ Magnesium Sulfate/ Multivitamins/ Minerals/Chromium/ Copper /Manganese/ Seleni/Zn/Total Parenteral Nutrition/Amino Acids/Dextrose/ Fat Emulsion Intravenous (Sodium Chloride/ Potass... 1,920 ml @ 80 mls/hr TPN CONT IV Last administered on 07/21/16 22:05; Start 07/21/16 at 22:00; Stop at 21:59; Status DC Alteplase, Recombinant 2 mg 2 mg PRN DAILY PRN INT CAT INFLAMMATION Last administered on 07/27/16 11:31; Start 07/21/16 at 15:00 Sodium Chloride 220 meq/Sodium Acetate 90 meq/ Potassium Chloride 50 meq/ Potassium Acetate 15 meq/Potassium Phosphate 10 mmol/ Magnesium Sulfate 50 meq/ Multivitamins/ Minerals 10 ml/ Chromium/Copper/ Manganese/Seleni/ Zn 1 ml/Total Parenteral Nutrition/Amino Acids/Dextrose/ Fat Emuls... 1,920 ml @ 80 mls/hr TPN CONT IV Last administered on 07/22/16 20:53; Start 07/22/16 at 22:00; Stop 07/23/16 at 21:59; Status DC Sodium Chloride/ Sodium Acetate/ Potassium Chloride/ Potassium Acetate/ Potassium Phosphate/ Magnesium Sulfate/ Multivitamins/ Minerals/Chromium/ Copper /Manganese/ Seleni/Zn/Total Parenteral Nutrition/Amino Acids/Dextrose/ Fat Emulsion Intravenous (Sodium Chloride/ Potass... 1,920 ml @ 80 mls/hr TPN CONT IV Last administered on 07/23/16 21:16; Start 07/23/16 at 22:00; Stop 07/24 at 21:59; Status DC Gentamicin Sulfate 1 each 1 each 1X ONCE MC ; Start 07/23/16 at 22:00; Stop 07/23 at 22:01; Status Cancel Sodium Chloride/ Sodium Acetate/ Potassium Chloride/ Potassium Acetate/ Potassium Phosphate/ Magnesium Sulfate/ Multivitamins/ Minerals/Chromium/ Copper /Manganese/ Seleni/Zn/Total Parenteral Nutrition/Amino Acids/Dextrose/ Fat Emulsion Intravenous (Sodium Chloride/ Potass... 1,920 ml @ 80 mls/hr TPN CONT IV Last administered on 07/24/16 21:15; Start 07/24/16 at 22:00; Stop 04/30 at 21:59; Status DC Gentamicin Sulfate 1 each 1X ONCE MC ; Start 07/25/16 at 12:30; Stop 07/25/16 at 12:31; Status Cancel Amlodipine Besylate 5 mg 5 mg DAILY PO Last administered on 07/27/16 11:12; Start 07/25/16 at 12:00; Stop 07/29/16 at 08:44; Status DC Sodium Chloride 220 meq/Sodium Acetate 90 meq/ Potassium Chloride 30 meq/ Potassium Acetate 15 meq/Potassium Phosphate 10 mmol/ Magnesium Sulfate 50 meq/ Multivitamins/ Minerals 10 ml/ Chromium/Copper/ Manganese/Seleni/ Zn 1 ml/Total Parenteral Nutrition/Amino Acids/Dextrose/ Fat Emuls... 1,920 ml @ 80 mls/hr TPN CONT IV Last administered on 07/25/16 22:25; Start 07/25/16 at 22:00; Stop 07/26/16 at 21:59; Status DC Sodium Chloride/ Sodium Acetate/ Potassium Chloride/ Potassium Acetate/ Potassium Phosphate/ Magnesium Sulfate/ Multivitamins/ Minerals/Chromium/ Copper /Manganese/ Seleni/Zn/Total Parenteral Nutrition/Amino Acids/Dextrose/ Fat Emulsion Intravenous (Sodium Chloride/ Potass... 1,920 ml @ 80 mls/hr TPN CONT IV Last administered on 07/26/16 23:16; Start 07/26/16 at 22:00; Stop at 21:59; Status DC Furosemide 20 mg 20 mg 1X ONCE IVP Last administered on 07/27/16 11:31; Start 07/27/16 at 09:00; Stop 07/27/16 at 09:01; Status DC Daptomycin 340 mg/ Sodium Chloride 50 ml @ 100 mls/hr Q24H IV Last administered on 07/29/16 15:05; Start 07/27/16 at 13:00; Stop 07/30/16 at 07:25 ; Status DC Piperacillin Sod/ Tazobactam Sod 3.375 gm/Sodium Chloride 50 ml @ 100 mls/hr Q6HRS IV Last administered on 07/30/16 05:30; Start 07/27/16 at 12:30; Stop at 07:25; Status DC Fluconazole/ Sodium Chloride 100 ml @ 100 mls/hr Q24H IV Last administered on 07/28/16 13:32; Start 07/27/16 at 13:00; Stop 07/29/16 at 00:53; Status DC Sodium Chloride 1,000 ml @ 1,000 mls/hr 1X ONCE IV Last administered on 12:34; Start 07/27/16 at 12:30; Stop 07/27/16 at 13:29; Status DC Sodium Chloride 220 meq/Sodium Acetate 90 meq/ Potassium Chloride 30 meq/ Potassium Acetate 15 meq/Potassium Phosphate 10 mmol/ Magnesium Sulfate 45 meq/ Multivitamins/ Minerals 10 ml/ Chromium/Copper/ Manganese/Seleni/ Zn 1 ml/Total Parenteral Nutrition/Amino Acids/Dextrose/ Fat Emuls... 1,920 ml @ 80 mls/hr TPN CONT IV Last administered on 07/27/16 22:38; Start 07/27/16 at 22:00; Stop 07/28/16 at 21:59; Status DC Sodium Chloride (Iv Sodium Chloride 0.9% 1000ml Bag) 1,000 ml @ 45 mls/hr [id number] IV Last administered on 07/28/16 03:24; Start 07/27/16 at 17:00; Stop 07/28/16 at 10:27; Status DC Acetaminophen 650 mg 650 mg PRN Q6HRS PRN [place] fever Last administered on 03:57; Start 07/27/16 at 16:30; Stop 07/29/16 at 08:33; Status DC Sodium Chloride 1,000 ml @ 427.5 mls/ hr [id number] IV Last administered on 19:30; Start 07/27/16 at 19:30; Stop 07/27/16 at 23:30; Status DC Sodium Chloride 220 meq/Sodium Acetate 90 meq/ Potassium Chloride 30 meq/ Potassium Acetate 15 meq/Potassium Phosphate 10 mmol/ Magnesium Sulfate 45 meq/ Multivitamins/ Minerals 10 ml/ Chromium/Copper/ Manganese/Seleni/ Zn 1 ml/Total Parenteral Nutrition/Amino Acids/Dextrose/ Fat Emuls... 1,920 ml @ 80 mls/hr TPN CONT IV Last administered on 07/28/16 21:43; Start 07/28/16 at 22:00; Stop 07/29/16 at 21:59; Status DC Micafungin Sodium/ Dextrose (Mycamine) 100 ml @ 100 mls/hr Q24H IV Last administered on 08/11/16 00:56; Start 07/29/16 at 01:00 Lorazepam (Ativan) 0.05 mg PRN Q4HRS PRN IV ANXIETY / AGITATION; Start at 02:30; Stop 07/29/16 at 02:48; Status DC Lorazepam (Ativan) 0.5 mg PRN Q4HRS PRN IV ANXIETY / AGITATION Last administered on 08/09/16 17:19; Start 07/29/16 at 03:00 Acetaminophen (Tylenol) 650 mg PRN Q4HRS PRN [place] MILD PAIN / TEMP; Start at 08:30 Ketorolac Tromethamine (Toradol) 30 mg PRN Q6HRS PRN IV PAIN/FEVER Last administered on 07/30/16 00:50; Start 07/29/16 at 08:30; Stop 07/30/16 at 13:01 ; Status DC Pantoprazole Sodium 40 mg 40 mg DAILYAC IVP Last administered on 08/11/16 10: 32; Start 07/29/16 at 09:00 Sodium Chloride 1,000 ml @ 45 mls/hr [id number] IV Last administered on 09:17; Start 07/29/16 at 08:45; Stop 07/31/16 at 15:01; Status DC Sodium Chloride/ Sodium Acetate/ Potassium Chloride/ Potassium Acetate/ Potassium Phosphate/ Magnesium Sulfate/ Multivitamins/ Minerals/Chromium/ Copper /Manganese/ Seleni/Zn/Total Parenteral Nutrition/Amino Acids/Dextrose/ Fat Emulsion Intravenous (Sodium Chloride/ Potass... 1,920 ml @ 80 mls/hr TPN CONT IV Last administered on 07/29/16 22:06; Start 07/29/16 at 22:00; Stop at 21:59; Status DC Lidocaine/Sodium Bicarbonate 20 ml 20 ml STK-MED ONCE IJ ; Start 07/29/16 at 13: 13; Stop 07/29/16 at 13:14; Status DC Heparin Sodium/ Sodium Chloride 500 ml @ As Directed STK-MED ONCE .ROUTE ; Start 07/29/16 at 13:13; Stop 07/29/16 at 13:14; Status DC Lidocaine/ Epinephrine (Xylocaine 1%-Epi 1:100,000) 20 ml STK-MED ONCE .ROUTE ; Start 07/29/16 at 13:22; Stop 07/29/16 at 13:23; Status DC Midazolam HCl (Versed) 5 mg STK-MED ONCE .ROUTE ; Start 07/29/16 at 13:32; Stop 07/29/16 at 13:33; Status DC Fentanyl Citrate (Fentanyl 5ml Vial) 250 mcg STK-MED ONCE .ROUTE ; Start at 13:32; Stop 07/29/16 at 13:33; Status DC Heparin Sodium/ Sodium Chloride 1,000 unit 1X ONCE IART Last administered on 13:45; Start 07/29/16 at 13:45; Stop 07/29/16 at 13:48; Status DC Midazolam HCl (Versed) 5 mg 1X ONCE IV Last administered on 07/29/16 13:45; Start 07/29/16 at 13:45; Stop 07/29/16 at 13:48; Status DC Fentanyl Citrate (Fentanyl 5ml Vial) 250 mcg 1X ONCE IV Last administered on 13:45; Start 07/29/16 at 13:45; Stop 07/29/16 at 13:48; Status DC Lidocaine/ Epinephrine 20 ml 20 ml 1X ONCE IJ Last administered on 07/29/16 13:45; Start 07/29/16 at 13:45; Stop 07/29/16 at 13:48; Status DC Sodium Chloride 220 meq/Sodium Acetate 90 meq/ Potassium Chloride 15 meq/ Potassium Acetate 30 meq/Potassium Phosphate 10 mmol/ Magnesium Sulfate 45 meq/ Multivitamins/ Minerals 10 ml/ Chromium/Copper/ Manganese/Seleni/ Zn 1 ml/Total Parenteral Nutrition/Amino Acids/Dextrose/ Fat Emuls... 1,920 ml @ 80 mls/hr TPN CONT IV ; Start 07/30/16 at 22:00; Stop 07/31/16 at 21:59; Status DC Norepinephrine Bitartrate 8 mg/ Sodium Chloride 258 ml @ 1.93 mls/hr 1X ONCE IV Last administered on 07/30/16 11:17; Start 07/30/16 at 11:15; Stop at 15:43; Status DC Norepinephrine Bitartrate/Sodium Chloride (Levophed Vial/ Iv Sodium Chloride 0.9 % 250ml) 258 ml @ 0 mls/hr CONT PRN IV SEE I/O RECORD Last administered on 08/02 19:54; Start 07/30/16 at 11:15; Stop 08/04/16 at 09:29; Status DC Furosemide 60 mg 60 mg 1X ONCE IVP Last administered on 07/30/16 11:14; Start 07/30/16 at 11:15; Stop 07/30/16 at 11:16; Status DC Sodium Chloride 500 ml @ 500 mls/hr Q1H IV Last administered on 07/30/16 17: 04; Start 07/30/16 at 14:30; Stop 07/30/16 at 15:29; Status DC Albumin Human 100 ml @ 100 mls/hr Q8HRS IV Last administered on 07/31/16 05: 37; Start 07/30/16 at 14:30; Stop 07/31/16 at 06:59; Status DC Furosemide/Sodium Chloride (Lasix Drip/Iv Sodium Chloride 0.9% 100ml) 100 ml @ 0 mls/hr CONT PRN IV SEE I/O RECORD Last administered on 07/31/16 03:17; Start 07/30/16 at 14:30; Stop 08/01/16 at 13:19; Status DC Ondansetron HCl (Zofran) 8 mg PRN Q8HRS PRN IV NAUSEA/VOMITING Last administered on 07/30/16 14:38; Start 07/30/16 at 14:30 Sodium Bicarbonate 50 meq 50 meq 1X ONCE IV Last administered on 07/30/16 14: 43; Start 07/30/16 at 14:30; Stop 07/30/16 at 14:31; Status DC Heparin Sodium/ Sodium Chloride 500 ml @ As Directed STK-MED ONCE .ROUTE ; Start 07/30/16 at 14:49; Stop 07/30/16 at 14:50; Status DC Lidocaine HCl 20 ml STK-MED ONCE .ROUTE ; Start 07/30/16 at 14:49; Stop at 14:50; Status DC Midazolam HCl (Versed) 2 mg STK-MED ONCE .ROUTE ; Start 07/30/16 at 15:19; Stop 07/30/16 at 15:20; Status DC Heparin Sodium/ Sodium Chloride 1,000 unit 1X ONCE IART Last administered on 15:44; Start 07/30/16 at 15:45; Stop 07/30/16 at 15:46; Status DC Midazolam HCl (Versed) 1.5 mg 1X ONCE IV Last administered on 07/30/16 15:44 ; Start 07/30/16 at 15:45; Stop 07/30/16 at 15:46; Status DC Lidocaine HCl 20 ml 1X ONCE IJ Last administered on 07/30/16 15:44; Start at 15:45; Stop 07/30/16 at 15:46; Status DC Heparin Sodium (Porcine) 66884 unit 10,000 unit STK-MED ONCE .ROUTE ; Start at 15:54; Stop 07/30/16 at 15:55; Status DC Fentanyl Citrate 30 ml @ 0 mls/hr CONT PRN PRN IV PROTOCOL Last administered on 08/08/16 10:21; Start 07/30/16 at 16:45; Stop 08/08/16 at 11:03; Status DC Sodium Bicarbonate/ Dextrose 1,150 ml @ 125 mls/hr 1X ONCE IV Last administered on 07/30/16 18:34; Start 07/30/16 at 17:30; Stop 07/31/16 at 02:41 ; Status DC Succinylcholine Chloride 200 mg 200 mg STK-MED ONCE .ROUTE ; Start 07/30/16 at 19:47; Stop 07/30/16 at 19:48; Status DC Propofol 100 ml @ As Directed STK-MED ONCE IV ; Start 07/30/16 at 19:48; Stop 07/30/16 at 19:49; Status DC Midazolam HCl (Versed 100mg/ 100ml Premix) 100 ml @ 0 mls/hr CONT PRN IV SEE I/ O RECORD Last administered on 08/03/16 12:18; Start 07/30/16 at 21:15 Sodium Bicarbonate 50 meq 50 meq 1X ONCE IV Last administered on 07/30/16 22: 15; Start 07/30/16 at 22:30; Stop 07/30/16 at 22:31; Status DC Dopamine HCl/ Dextrose 250 ml @ 11.513 mls/ hr CONT PRN IV SEE I/O RECORD Last administered on 07/31/16 20:16; Start 07/30/16 at 22:15; Stop 08/04/16 at 09:29; Status DC Sodium Bicarbonate/ Dextrose 1,150 ml @ 125 mls/hr Q9H12M IV Last administered on 08/01/16 09:30; Start 07/31/16 at 03:00; Stop 08/01/16 at 13:19 ; Status DC Propofol (Diprivan) 1,000 mg STK-MED ONCE IV ; Start 07/30/16 at 20:00; Stop at 08:16; Status DC Succinylcholine Chloride 200 mg 200 mg STK-MED ONCE .ROUTE ; Start 07/30/16 at 20:00; Stop 07/31/16 at 08:16; Status DC Tigecycline 50 mg/ Sodium Chloride 50 ml @ 100 mls/hr Q12HR IV Last administered on 08/04/16 09:01; Start 07/31/16 at 21:00; Stop 08/04/16 at 10:00 ; Status DC Tigecycline/ Sodium Chloride (Tygacil/Iv Sodium Chloride 0.9% 100ml) 100 ml @ 200 mls/hr 1X ONCE IV Last administered on 07/31/16 09:22; Start 07/31/16 at 09:00; Stop 07/31/16 at 09:29; Status DC Darbepoetin Sarbjit 60 mcg 60 mcg WEEKLYHS SQ Last administered on 08/07/16 21:41 ; Start 07/31/16 at 21:00 Albumin Human 100 ml @ 100 mls/hr 1X ONCE IV Last administered on 07/31/16 11:40; Start 07/31/16 at 11:15; Stop 07/31/16 at 12:14; Status DC Albumin Human 100 ml @ 100 mls/hr 1X ONCE IV Last administered on 07/31/16 12:03; Start 07/31/16 at 11:15; Stop 07/31/16 at 12:14; Status DC Sodium Chloride (Iv Sodium Chloride 0.9% 1000ml Bag) 1,000 ml @ 1,000 mls/hr Q1H PRN IV hypotension; Start 07/31/16 at 11:33; Stop 07/31/16 at 17:32; Status DC Info (PHARMACY MONITORING -- do not chart) 1 each PRN DAILY PRN MC SEE COMMENTS ; Start 07/31/16 at 11:45 Info (PHARMACY MONITORING -- do not chart) 1 each PRN DAILY PRN MC SEE COMMENTS ; Start 07/31/16 at 11:45; Status UNV Hydrocortisone Sodium Succinate (Solu-Cortef) 100 mg Q8HRS IV Last administered on 08/04/16 06:16; Start 08/01/16 at 07:00; Stop 08/04/16 at 09:29 ; Status DC Albuterol/ Ipratropium (Duoneb) 3 ml RTQID NEB Last administered on 08/11/16 08:49; Start 08/01/16 at 08:00 Albuterol/ Ipratropium 3 ml 3 ml STK-MED ONCE .ROUTE Last administered on 07:34; Start 08/01/16 at 06:59; Stop 08/01/16 at 07:00; Status DC Sodium Chloride 1,000 ml @ 1,000 mls/hr Q1H PRN IV hypotension; Start 08/01/16 at 06:57; Stop 08/01/16 at 12:56; Status DC Albumin Human (Albuminar) 200 ml @ 200 mls/hr 1X PRN PRN IV Hypotension; Start 08/01/16 at 07:00; Stop 08/01/16 at 12:59; Status DC Info (PHARMACY MONITORING -- do not chart) 1 each PRN DAILY PRN MC SEE COMMENTS ; Start 08/01/16 at 07:00; Status UNV Info 1 each 1 each PRN DAILY PRN MC SEE COMMENTS Last administered on 14:40; Start 08/01/16 at 13:30 Sodium Chloride 220 meq/Sodium Acetate 90 meq/ Potassium Chloride 15 meq/ Potassium Acetate 30 meq/Potassium Phosphate 10 mmol/ Magnesium Sulfate 45 meq/ Multivitamins/ Minerals 10 ml/ Chromium/Copper/ Manganese/Seleni/ Zn 1 ml/Total Parenteral Nutrition/Amino Acids/Dextrose/ Fat Emuls... 1,920 ml @ 80 mls/hr TPN CONT IV Last administered on 08/01/16 21:56; Start 08/01/16 at 22:00; Stop 08/02/16 at 21:59; Status DC Potassium Chloride (KCl Premix 20meq) 50 ml @ 50 mls/hr Q1H IV Last administered on 08/01/16 19:05; Start 08/01/16 at 17:00; Stop 08/01/16 at 18:59 ; Status DC Insulin Aspart 0-6 UNITS TIDWMEALS SQ Last administered on 08/02/16 11:33; Start 08/02/16 at 12:00; Stop 08/02/16 at 14:34; Status DC Sodium Chloride 220 meq/Sodium Acetate 90 meq/ Potassium Chloride 15 meq/ Potassium Acetate 30 meq/Magnesium Sulfate 45 meq/ Multivitamins/ Minerals 10 ml / Chromium/Copper/ Manganese/Seleni/ Zn 1 ml/Total Parenteral Nutrition/Amino Acids/Dextrose/ Fat Emulsion Intravenous 1,920 ml @ 80 mls/hr TPN CONT IV Last administered on 08/02/16 21:34; Start 08/02/16 at 22:00; Stop 08/03/16 at 21:59; Status DC Levofloxacin/ Dextrose 150 ml @ 100 mls/hr 1X ONCE IV Last administered on 14:35; Start 08/02/16 at 14:00; Stop 08/02/16 at 15:29; Status DC Daptomycin/Sodium Chloride (Cubicin/Iv Sodium Chloride 0.9% 50ml) 50 ml @ 100 mls/hr ONCE ONCE IV Last administered on 08/02/16 14:34; Start 08/02/16 at 15 :00; Stop 08/02/16 at 15:29; Status DC Insulin Aspart 0-6 UNITS Q6HRS SQ Last administered on 08/10/16 15:21; Start 08/02/16 at 18:00 Sodium Chloride (Iv Sodium Chloride 0.9% 1000ml Bag) 1,000 ml @ 1,000 mls/hr Q1H PRN IV hypotension; Start 08/03/16 at 07:26; Stop 08/03/16 at 13:25; Status DC Diphenhydramine HCl (Benadryl) 25 mg 1X PRN PRN IV ITCHING; Start 08/03/16 at 07:30; Stop 08/04/16 at 07:29; Status DC Diphenhydramine HCl (Benadryl) 25 mg 1X PRN PRN IV ITCHING; Start 08/03/16 at 07:30; Stop 08/04/16 at 07:29; Status DC Sodium Chloride (Normal Saline Flush) 10 ml 1X PRN PRN IV AP catheter pack; Start 08/03/16 at 07:30; Stop 08/04/16 at 07:29; Status DC Sodium Chloride 10 ml 10 ml 1X PRN PRN IV BOAT FINISHER catheter pack; Start 08/03/16 at 07:30; Stop 08/04/16 at 07:29; Status DC Sodium Chloride (Iv Sodium Chloride 0.9% 1000ml Bag) 1,000 ml @ 400 mls/hr Q2H30M PRN IV PATENCY; Start 08/03/16 at 07:26; Stop 08/03/16 at 19:25; Status DC Info 1 each 1 each PRN DAILY PRN MC SEE COMMENTS; Start 08/03/16 at 07:30; Status UNV Albumin Human 200 ml @ 200 mls/hr Q2HR IV Last administered on 08/03/16 10:00 ; Start 08/03/16 at 08:44; Stop 08/03/16 at 10:59; Status DC Sodium Chloride 160 meq/Sodium Acetate 60 meq/ Potassium Chloride 15 meq/ Potassium Acetate 30 meq/Magnesium Sulfate 25 meq/ Multivitamins/ Minerals 10 ml / Chromium/Copper/ Manganese/Seleni/ Zn 1 ml/Total Parenteral Nutrition/Amino Acids/Dextrose/ Fat Emulsion Intravenous 1,500 ml @ 62.5 mls/hr TPN CONT IV Last administered on 08/03/16 22:52; Start 08/03/16 at 22:00; Stop 08/04/16 at 21:59; Status DC Levofloxacin/ Dextrose 100 ml @ 100 mls/hr 1X ONCE IV Last administered on 10:50; Start 08/04/16 at 07:30; Stop 08/04/16 at 08:30; Status DC Daptomycin 450 mg/ Sodium Chloride 50 ml @ 100 mls/hr ONCE ONCE IV Last administered on 08/04/16 09:55; Start 08/04/16 at 08:00; Stop 08/04/16 at 08:30 ; Status DC Tigecycline/ Sodium Chloride (Tygacil/Iv Sodium Chloride 0.9% 50ml) 50 ml @ 100 mls/hr Q12HR IV Last administered on 08/09/16 07:20; Start 08/04/16 at 21: 00; Stop 08/09/16 at 09:42; Status DC Hydrocortisone Sodium Succinate 50 mg 50 mg Q8HRS IV Last administered on 05:39; Start 08/04/16 at 14:00; Stop 08/05/16 at 11:12; Status DC Furosemide 100 mg/ Sodium Chloride 100 ml @ 0 mls/hr CONT PRN IV SEE I/O RECORD Last administered on 08/09/16 06:43; Start 08/04/16 at 11:30; Stop 08/09 at 11:31; Status DC Sodium Chloride 160 meq/Sodium Acetate 60 meq/ Potassium Chloride 15 meq/ Potassium Acetate 30 meq/Magnesium Sulfate 25 meq/ Multivitamins/ Minerals 10 ml / Chromium/Copper/ Manganese/Seleni/ Zn 1 ml/Total Parenteral Nutrition/Amino Acids/Dextrose/ Fat Emulsion Intravenous 1,500 ml @ 62.5 mls/hr TPN CONT IV Last administered on 08/04/16 21:45; Start 08/04/16 at 22:00; Stop 08/06/16 at 08:48; Status DC Sodium Chloride 1,000 ml @ 1,000 mls/hr Q1H PRN IV hypotension; Start 08/04/16 at 12:00; Stop 08/04/16 at 17:59; Status DC Sodium Chloride (Iv Sodium Chloride 0.9% 1000ml Bag) 1,000 ml @ 400 mls/hr Q2H30M PRN IV PATENCY; Start 08/04/16 at 12:00; Stop 08/04/16 at 23:59; Status DC Info 1 each 1 each PRN DAILY PRN MC SEE COMMENTS; Start 08/04/16 at 16:30; Status UNV Levofloxacin/ Dextrose 100 ml @ 100 mls/hr 1X ONCE IV Last administered on 14:27; Start 08/05/16 at 14:00; Stop 08/05/16 at 14:59; Status DC Daptomycin/Sodium Chloride (Cubicin/Iv Sodium Chloride 0.9% 50ml) 50 ml @ 100 mls/hr 1X ONCE IV Last administered on 08/05/16 14:27; Start 08/05/16 at 14: 00; Stop 08/05/16 at 14:29; Status DC Heparin Sodium (Porcine) 10,000 unit STK-MED ONCE .ROUTE ; Start 08/05/16 at 09: 35; Stop 08/05/16 at 09:36; Status DC Lidocaine/Sodium Bicarbonate 20 ml 20 ml STK-MED ONCE IJ ; Start 08/05/16 at 09: 36; Stop 08/05/16 at 09:37; Status DC Heparin Sodium/ Sodium Chloride 500 ml @ As Directed STK-MED ONCE .ROUTE ; Start 08/05/16 at 09:36; Stop 08/05/16 at 09:37; Status DC Lidocaine/Sodium Bicarbonate (Buffered Lidocaine 1%) 2 ml 1X ONCE IJ Last administered on 08/05/16 10:04; Start 08/05/16 at 10:00; Stop 08/05/16 at 10:02 ; Status DC Heparin Sodium/ Sodium Chloride 60 unit 1X ONCE IV Last administered on 10:04; Start 08/05/16 at 10:00; Stop 08/05/16 at 10:02; Status DC Heparin Sodium (Porcine) 2,800 unit 1X ONCE INT CAT Last administered on 10:04; Start 08/05/16 at 10:00; Stop 08/05/16 at 10:02; Status DC Info (PHARMACY MONITORING -- do not chart) 1 each PRN DAILY PRN MC SEE COMMENTS ; Start 08/05/16 at 10:30; Stop 08/05/16 at 10:30; Status DC Info (PHARMACY MONITORING -- do not chart) 1 each PRN DAILY PRN MC SEE COMMENTS ; Start 08/05/16 at 10:30; Stop 08/05/16 at 10:30; Status DC Hydrocortisone Sodium Succinate 50 mg 50 mg BID IV Last administered on 07:49; Start 08/05/16 at 21:00; Stop 08/07/16 at 10:23; Status DC Sodium Chloride 160 meq/Sodium Acetate 60 meq/ Potassium Chloride 15 meq/ Potassium Acetate 30 meq/Magnesium Sulfate 25 meq/ Multivitamins/ Minerals 10 ml / Chromium/Copper/ Manganese/Seleni/ Zn 1 ml/Total Parenteral Nutrition/Amino Acids/Dextrose/ Fat Emulsion Intravenous 1,500 ml @ 62.5 mls/hr TPN CONT IV Last administered on 08/05/16 22:04; Start 08/05/16 at 22:00; Stop 08/06/16 at 21:59; Status DC Daptomycin 500 mg/ Sodium Chloride 50 ml @ 100 mls/hr Q24H IV Last administered on 08/10/16 15:12; Start 08/06/16 at 14:00 Sodium Chloride (Iv Sodium Chloride 0.9% 1000ml Bag) 1,000 ml @ 1,000 mls/hr Q1H PRN IV hypotension; Start 08/06/16 at 08:21; Stop 08/06/16 at 14:20; Status DC Diphenhydramine HCl (Benadryl) 25 mg 1X PRN PRN IV ITCHING; Start 08/06/16 at 08:30; Stop 08/07/16 at 08:29; Status DC Diphenhydramine HCl (Benadryl) 25 mg 1X PRN PRN IV ITCHING; Start 08/06/16 at 08:30; Stop 08/07/16 at 08:29; Status DC Sodium Chloride (Normal Saline Flush) 10 ml 1X PRN PRN IV AP catheter pack; Start 08/06/16 at 08:30; Stop 08/07/16 at 08:29; Status DC Sodium Chloride 10 ml 10 ml 1X PRN PRN IV BOAT FINISHER catheter pack; Start 08/06/16 at 08:30; Stop 08/07/16 at 08:29; Status DC Sodium Chloride (Iv Sodium Chloride 0.9% 1000ml Bag) 1,000 ml @ 400 mls/hr Q2H30M PRN IV PATENCY; Start 08/06/16 at 08:21; Stop 08/06/16 at 20:20; Status DC Info 1 each 1 each PRN DAILY PRN MC SEE COMMENTS; Start 08/06/16 at 08:30; Status UNV Albumin Human 200 ml @ 200 mls/hr 1X STAT IV Last administered on 08/06/16 10:09; Start 08/06/16 at 09:52; Stop 08/06/16 at 10:51; Status DC Sodium Chloride/ Sodium Acetate/ Potassium Chloride/ Potassium Acetate/ Magnesium Sulfate/ Multivitamins/ Minerals/Chromium/ Copper/Manganese/ Seleni/Zn /Total Parenteral Nutrition/Amino Acids/Dextrose/ Fat Emulsion Intravenous ( Sodium Chloride/ Infuvite Adult/ Multitrace-5 Conc/ Tpn - Tpn Flu... 1,500 ml @ 62.5 mls/hr TPN CONT IV Last administered on 08/06/16 21:57; Start at 22:00; Stop 08/07/16 at 21:59; Status DC Darbepoetin Sarbjit 60 mcg 60 mcg [id number] SQ ; Start 08/07/16 at 21:00; Status UNV Potassium Chloride (KCl Premix 20meq) 50 ml @ 50 mls/hr Q1H IV Last administered on 08/07/16t 10:46; Start 08/07/16 at 08:00; Stop 08/07/16 at 09:59 ; Status DC Hydrocortisone Sodium Succinate 25 mg 25 mg BID IV ; Start 08/07/16 at 21:00; Stop 08/07/16 at 21:00; Status DC Sodium Chloride (Iv Sodium Chloride 0.9% 1000ml Bag) 1,000 ml @ 1,000 mls/hr Q1H PRN IV hypotension; Start 08/07/16 at 12:08; Stop 08/07/16 at 18:07; Status DC Diphenhydramine HCl (Benadryl) 25 mg 1X PRN PRN IV ITCHING; Start 08/07/16 at 12:15; Stop 08/08/16 at 12:14; Status DC Diphenhydramine HCl (Benadryl) 25 mg 1X PRN PRN IV ITCHING; Start 08/07/16 at 12:15; Stop 08/08/16 at 12:14; Status DC Sodium Chloride (Normal Saline Flush) 10 ml 1X PRN PRN IV AP catheter pack; Start 08/07/16 at 12:15; Stop 08/08/16 at 12:14; Status DC Sodium Chloride (Normal Saline Flush) 10 ml 1X PRN PRN IV BOAT FINISHER catheter pack; Start 08/07/16 at 12:15; Stop 08/08/16 at 12:14; Status DC Info (PHARMACY MONITORING -- do not chart) 1 each PRN DAILY PRN MC SEE COMMENTS ; Start 08/07/16 at 12:15; Status UNV Info 1 each 1 each PRN DAILY PRN MC SEE COMMENTS; Start 08/07/16 at 12:15; Status UNV Sodium Chloride 160 meq/Sodium Acetate 60 meq/ Potassium Chloride 55 meq/ Potassium Acetate 30 meq/Magnesium Sulfate 25 meq/ Multivitamins/ Minerals 10 ml / Chromium/Copper/ Manganese/Seleni/ Zn 1 ml/Total Parenteral Nutrition/Amino Acids/Dextrose/ Fat Emulsion Intravenous 1,500 ml @ 62.5 mls/hr TPN CONT IV Last administered on 08/07/16 21:41; Start 08/07/16 at 22:00; Stop 08/08/16 at 21:59; Status DC Potassium Chloride (KCl Premix 20meq) 50 ml @ 50 mls/hr 1X ONCE IV Last administered on 08/08/16 09:04; Start 08/08/16 at 10:00; Stop 08/08/16 at 10:59 ; Status DC Fentanyl Citrate 25 mcg 25 mcg PRN Q4HRS PRN IV PAIN Last administered on 15:04; Start 08/08/16 at 11:00 Potassium Chloride 50 ml @ 50 mls/hr 1X ONCE IV Last administered on 15:33; Start 08/08/16 at 11:15; Stop 08/08/16 at 12:14; Status DC Sodium Chloride 140 meq/Sodium Acetate 60 meq/ Potassium Chloride 70 meq/ Potassium Acetate 30 meq/Magnesium Sulfate 25 meq/ Multivitamins/ Minerals 10 ml / Chromium/Copper/ Manganese/Seleni/ Zn 1 ml/Total Parenteral Nutrition/Amino Acids/Dextrose/ Fat Emulsion Intravenous 1,500 ml @ 62.5 mls/hr TPN CONT IV Last administered on 08/08/16 21:42; Start 08/08/16 at 22:00; Stop 08/09/16 at 11:30; Status DC Tigecycline 50 mg/ Sodium Chloride 50 ml @ 100 mls/hr Q12HR IV ; Start at 09:42; Stop 08/09/16 at 10:03; Status DC Dextrose 1,000 ml @ 80 mls/hr [id number] IV ; Start 08/09/16 at 11:45; Stop at 11:57; Status DC Dextrose/Sodium Chloride 1,000 ml @ 50 mls/hr Q20H IV Last administered on 12:22; Start 08/09/16 at 12:00; Stop 08/10/16 at 10:09; Status DC Sodium Chloride 10 meq/Sodium Acetate 10 meq/ Potassium Chloride 40 meq/ Potassium Acetate 10 meq/Magnesium Sulfate 15 meq/ Multivitamins/ Minerals 10 ml / Chromium/Copper/ Manganese/Seleni/ Zn 1 ml/Total Parenteral Nutrition/Amino Acids/Dextrose/ Fat Emulsion Intravenous 1,512 ml @ 63 mls/hr TPN CONT IV Last administered on 08/10/16 10:44; Start 08/09/16 at 22:00; Stop 08/10/16 at 21:59; Status DC Dextrose 1,000 ml @ 100 mls/hr Q10H IV Last administered on 08/10/16 10:37; Start 08/10/16 at 10:15; Stop 08/10/16 at 13:48; Status DC Potassium Chloride 50 ml @ 50 mls/hr 1X ONCE IV Last administered on 10:39; Start 08/10/16 at 10:30; Stop 08/10/16 at 11:29; Status DC Dextrose 1,000 ml @ 100 mls/hr Q10H IV Last administered on 08/11/16 10:33; Start 08/10/16 at 14:00 Potassium Chloride/ Potassium Acetate/ Magnesium Sulfate/ Multivitamins/ Minerals/Chromium/ Copper/Manganese/ Seleni/Zn/Total Parenteral Nutrition/Amino Acids/Dextrose/ Fat Emulsion Intravenous (Infuvite Adult/ Multitrace-5 Conc/ Tpn - Tpn Fluid/ Dextrose 70%-Water Iv Soln/ Intralipid 20%) 1,512 ml @ 63 mls/ hr TPN CONT IV Last administered on 08/10/16 22:13; Start 08/10/16 at 22:00; Stop 08/11/16 at 21:59 Active Scripts Active Dilaudid (Hydromorphone Hcl) 4 Mg Tablet 4 Mg PO Q6HRS Phenazopyridine Hcl 200 Mg Tablet 200 Mg PO PRN TID PRN FENTANYL 50mcg/hr (Fentanyl) 1 Each Patch.td72 1 Patch TD Q3DAYS Anaspaz (Hyoscyamine Sulfate) 0.125 Mg Tab.rapdis 0.125 Mg PO Q6HRS PRN Cefpodoxime Proxetil 200 Mg Tablet 200 Mg PO BID Sertraline Hcl 50 Mg Tablet 100 Mg PO DAILY 30 Days Protonix (Pantoprazole Sodium) 40 Mg Tablet.dr 1 Tab PO DAILY Zinc Oxide 56.7 Gm Oint...g. 1 Sang TP BID Lidocaine 35.44 Gm Oint...g. 1 Sang TP BID Ondansetron Odt (Ondansetron) 4 Mg Tab.rapdis 8 Mg PO PRN Q8HRS PRN Gas-X (Simethicone) 80 Mg Tab.chew 80 Mg PO PRN QID PRN Reported Lorazepam 0.5 Mg Tablet 0.5 Mg PO PRN BID PRN Vitals/I & O Vital Sign - Last 24 Hours 08/10/16 08/10/16 08/10/16 08/10/16 11:00 12:00 12:00 12:15 Temp 98.1 98.1 Pulse 116 120 Resp 14 15 B/P 162/73 173/74 Pulse Ox 100 100 O2 Delivery Ventilator Ventilator Mechanical Ventilator Venturi Mask O2 Flow Rate 9.0 08/10/16 08/10/16 08/10/16 08/10/16 13:00 13:10 14:00 15:00 Pulse 110 101 99 Resp 22 23 20 B/P 142/84 135/62 127/64 Pulse Ox 99 99 99 99 O2 Delivery Venturi Mask Venturi Mask Venturi Mask Venturi Mask O2 Flow Rate 6.0 08/10/16 08/10/16 08/10/16 08/10/16 15:47 16:00 16:00 17:00 Temp 98.0 98.0 Pulse 102 96 Resp 24 20 B/P 140/72 134/67 Pulse Ox 100 99 100 O2 Delivery Mask Venturi Mask Venturi Mask Venturi Mask O2 Flow Rate 6.0 3.0 08/10/16 08/10/16 08/10/16 08/10/16 18:00 19:00 19:20 19:32 Temp 97.4 97.4 Pulse 96 64 Resp 16 20 B/P 135/62 116/63 Pulse Ox 100 100 100 O2 Delivery Venturi Mask Nasal Cannula Nasal Cannula Nasal Cannula O2 Flow Rate 3.0 3.0 3.0 3.0 08/10/16 08/10/16 08/10/16 08/10/16 20:00 21:00 22:00 23:00 Pulse 99 89 85 74 Resp 23 18 22 19 B/P 149/69 132/63 126/54 108/48 Pulse Ox 99 100 99 100 O2 Delivery Nasal Cannula Nasal Cannula Nasal Cannula Nasal Cannula O2 Flow Rate 2.0 2.0 2.0 2.0 08/11/16 08/11/16 08/11/16 08/11/16 00:05 00:05 01:00 02:00 Temp 97.9 97.9 Pulse 79 87 76 Resp B/P 133/79 107/57 123/82 Pulse Ox 100 100 100 O2 Delivery Nasal Cannula Nasal Cannula Nasal Cannula Nasal Cannula O2 Flow Rate 2.0 3.0 3.0 3.0 08/11/16 08/11/16 08/11/16 08/11/16 03:00 03:59 04:00 05:00 Temp 97.3 97.3 Pulse 58 98 62 Resp 14 B/P 115/52 135/53 113/54 Pulse Ox 100 100 100 O2 Delivery Nasal Cannula Nasal Cannula Nasal Cannula Nasal Cannula O2 Flow Rate 2.0 2.0 2.0 2.0 08/11/16 08/11/16 08/11/16 08/11/16 06:07 07:00 08:00 08:00 Temp 96.3 96.3 Pulse 55 88 52 Resp 24 B/P 98/51 148/74 109/68 Pulse Ox 100 100 100 O2 Delivery Nasal Cannula Nasal Cannula Nasal Cannula Nasal Cannula O2 Flow Rate 2.0 2.0 2.0 2.0 08/11/16 08/11/16 08:50 09:00 Pulse 76 Resp 23 B/P 123/82 Pulse Ox 100 100 O2 Delivery Nasal Cannula Nasal Cannula O2 Flow Rate 2.0 2.0 Intake and Output 08/10/16 08/10/16 08/11/16 15:00 23:00 07:00 Intake Total 290 ml 776 ml 1283 ml Output Total 180 ml 985 ml 890 ml Balance 110 ml -209 ml 393 ml BENITA LUTZ MD Aug 11, 2016 10:41
--- NOTE | 2016-08-11 10:45 | PDOC ---
Renal-Progress Notes Subjective Notes Notes NONE History of Present Illness Hx of present illness BETTER Vitals Vitals Vital Signs Date Time Temp Pulse Resp B/P Pulse Ox O2 Delivery O2 Flow Rate FiO2 08/11/16 09:00 76 23 123/82 100 Nasal Cannula 2.0 08/11/16 08:00 96.3 96.3 Weight Weight [ ] I.O. Intake and Output Intake and Output 08/11/16 07:00 Intake Total 2349 ml Output Total 2055 ml Balance 294 ml IV Total 2349 ml Output Urine Total 1055 ml Stool Total 350 ml Drainage Total 650 ml Labs Labs Laboratory Tests Test 08/10/16 15:01 08/10/16 15:18 08/10/16 18:30 08/11/16 00:54 O2 Saturation 98% (92-99) Arterial Blood pH 7.49 (7.35-7.45) Arterial Blood pCO2 at Patient Temp 35mmHg (35-46) Arterial Blood pO2 at Patient Temp 121mmHg (65-108) Arterial Blood HCO3 26mmol/L (21-28) Arterial Blood Base Excess 3mmol/L (-3-3) FiO2 30 Glucose (Fingerstick) 158mg/dL (70-99) 149mg/dL (70-99) 138mg/dL (70-99) Test 08/11/16 03:28 08/11/16 03:37 08/11/16 05:30 08/11/16 05:34 O2 Saturation 99% (92-99) Arterial Blood pH 7.48 (7.35-7.45) Arterial Blood pCO2 at Patient Temp 39mmHg (35-46) Arterial Blood pO2 at Patient Temp 161mmHg (65-108) Arterial Blood HCO3 29mmol/L (21-28) Arterial Blood Base Excess 5mmol/L (-3-3) FiO2 28 Glucose (Fingerstick) 119mg/dL (70-99) 135mg/dL (70-99) White Blood Count 5.9x10^3/uL (4.0-11.0) Red Blood Count 2.75x10^6/uL (3.50-5.40) Hemoglobin 7.3g/dL (12.0-15.5) Hematocrit 23.3% (36.0-47.0) Mean Corpuscular Volume 85fL (79-100) Mean Corpuscular Hemoglobin 26pg (25-35) Mean Corpuscular Hemoglobin Concent 31g/dL (31-37) Red Cell Distribution Width 23.5% (11.5-14.5) Platelet Count 75x10^3/uL (140-400) Neutrophils (%) (Auto) 69% (31-73) Lymphocytes (%) (Auto) 17% (24-48) Monocytes (%) (Auto) 10% (0-9) Eosinophils (%) (Auto) 3% (0-3) Basophils (%) (Auto) 1% (0-3) Neutrophils # (Auto) 4.1x10^3uL (1.8-7.7) Lymphocytes # (Auto) 1.0x10^3/uL (1.0-4.8) Monocytes # (Auto) 0.6x10^3/uL (0.0-1.1) Eosinophils # (Auto) 0.2x10^3/uL (0.0-0.7) Basophils # (Auto) 0.0x10^3/uL (0.0-0.2) Sodium Level 156mmol/L (136-145) Potassium Level 3.2mmol/L (3.5-5.1) Chloride Level 116mmol/L (98-107) Carbon Dioxide Level 31mmol/L (21-32) Anion Gap 9 (6-14) Blood Urea Nitrogen 51mg/dL (7-20) Creatinine 0.8mg/dL (0.6-1.0) Estimated GFR (Cockcroft-Gault) 88.2 Glucose Level 147mg/dL (70-99) Calcium Level 9.2mg/dL (8.5-10.1) Total Bilirubin 4.8mg/dL (0.2-1.0) Direct Bilirubin 2.7mg/dL (0.0-0.2) Aspartate Amino Transf (AST/SGOT) 32U/L (15-37) Alanine Aminotransferase (ALT/SGPT) 36U/L (14-59) Alkaline Phosphatase 187U/L (46-116) Creatine Kinase 35U/L (26-192) Total Protein 5.9g/dL (6.4-8.2) Albumin 2.5g/dL (3.4-5.0) Micro Micro Microbiology 08/01/16 Blood Culture - Final, Complete NO GROWTH AFTER 5 DAYS 07/15/16 Urine Culture - Final, Complete 07/15/16 Urine Culture Result 1 (ROYA) - Final, Complete 07/15/16 Urine Culture Result 2 (ROYA) - Final, Complete 07/15/16 Antimicrobic Susceptibility - Final, Complete 07/29/16 Aerobic Culture - Final, Complete 07/29/16 Aerobic Culture Result 1 (ROYA) - Final, Complete Review of Systems Constitutional: yes: no symptom reported Physical Exam General Appearance: no apparent distress Skin: warm Respiratory: decreased breath sounds Heart: S1S2, RRR Abdomen: soft, bowel sounds present Genitourinary: bladder flat Neurology: alert Musculoskeletal: Osteoarthritis Assessment Assessment IMP RESP FAILURE S/P EXTUBATION MALNUTRITION HYPERNATREMIA JULIO C-IMPROVING SEPSIS EC FISTULA-TPN DEPENDENT PLAN ANTIBIOTICS CONT TPN D5W TO CONTINUE CARL CAM MD Aug 11, 2016 10:45
[2016-08-11] MEDS: POTASSIUM CHLORIDE 20MEQ 50 ML IV SCH ×2 (11:39→13:05)
[2016-08-11] MEDS: TPN PER PHARMACY MC PRN (13:34)
[2016-08-11] MEDS: DAPTOMYCIN IV SCH (14:20)
[2016-08-11] MEDS: NORMAL SALINE IV SCH (14:20)
[2016-08-11] MEDS ORDERED: TOTAL PARENTERAL NUTRITION IV SCH ×8 (22:00)
[2016-08-11] MEDS ORDERED: [UNRECOGNIZED DRUG - OTHER] IV SCH ×8 (22:00)
[2016-08-11] MEDS ORDERED: DEXTROSE 70% IV SCH ×8 (22:00)
[2016-08-11] MEDS ORDERED: AMINO ACID IV SCH ×8 (22:00)
[2016-08-11] MEDS: FENTANYL PF 100 MCG/2 ML VIAL. IV PRN (22:03)
[2016-08-12] VITALS (15 sets, daily range): BP systolic 100–158; BP diastolic 56–89
[2016-08-12] MEDS: MICAFUNGIN 100 MG in IV DEXTROSE 5% 100 ML IV SCH (00:09)
[2016-08-12] MEDS: FENTANYL PF 100 MCG/2 ML VIAL. IV PRN ×5 (00:37→22:44)
[2016-08-12] MEDS: IV DEXTROSE 5% 1,000 ML IV SCH ×2 (05:21→18:25)
[2016-08-12] MEDS: INSULIN ASPART 300 UNITS/3 ML INSULN.PEN SQ SCH ×4 (05:58→18:00)
[2016-08-12 06:20] LABS: BASO # 0.1 x10^3/uL (0.0-0.2); BASO % 1 % (0-3); EOS % 5 % (0-3); HEMATOCRIT 26.7 % (36.0-47.0); HEMOGLOBIN 8.5 g/dL (12.0-15.5); LYMPH # 1.4 x10^3/uL (1.0-4.8); LYMPH % 28 % (24-48); MEAN CORPUSCULAR HEMOGLOBIN 27 pg (25-35); MEAN CORPUSCULAR HGB CONC 32 g/dL (31-37); MEAN CORPUSCULAR VOLUME 85 fL (79-100); MONO % 11 % (0-9); NEUT % 55 % (31-73); PLATELET COUNT 137 x10^3/uL (140-400); RED BLOOD COUNT 3.15 x10^6/uL (3.50-5.40); RED CELL DISTRIBUTION WIDTH 24.7 % (11.5-14.5)
[2016-08-12 06:36] LABS: CALCIUM 9.2 mg/dL (8.5-10.1); CREATININE 0.7 mg/dL (0.6-1.0); GFR 102.9; POTASSIUM 3.6 mmol/L (3.5-5.1)
--- NOTE | 2016-08-12 07:01 | PDOC ---
Infectious Disease Note Subjective Subjective Doing better Weak but improving ROS ROS GEN: Denies fevers, chills, sweats HEENT: Denies blurred vision, sore throat CV: Denies chest pain RESP: Denies shortness of air, cough GI: Denies n/v/d NEURO: Denies confusion, dizziness MSK: Denies weakness, joint pain/swelling Vital Sign Vital Signs Vital Signs Date Time Temp Pulse Resp B/P Pulse Ox O2 Delivery O2 Flow Rate FiO2 08/12/16 06:34 18 100 Room Air 08/12/16 06:00 98.0 70 146/70 98.0 08/11/16 16:00 2.0 Physical Exam PHYSICAL EXAM GENERAL: NAD, Alert HEENT: PERRL, OC/OP- clear NECK: Supple, no JVD, no LN LUNGS: Clear HEART: S1S2, no gallop, no murmur ABD: Soft, NT, dressed obese. [place] EXT: No edema, no cyanosis FILE CONVERSION OPERATOR: Alert, oriented x 3, no focal neurologic deficit SKIN: No rash IV: RIJ lines clean Labs Lab Laboratory Tests Test 08/11/16 11:43 08/11/16 18:08 08/12/16 00:10 08/12/16 05:50 Glucose (Fingerstick) 158mg/dL (70-99) 174mg/dL (70-99) 164mg/dL (70-99) 133mg/dL (70-99) Sodium Level 145mmol/L (136-145) Potassium Level 3.6mmol/L (3.5-5.1) Chloride Level 107mmol/L (98-107) Carbon Dioxide Level 28mmol/L (21-32) Anion Gap 10 (6-14) Blood Urea Nitrogen 33mg/dL (7-20) Creatinine 0.7mg/dL (0.6-1.0) Estimated GFR (Cockcroft-Gault) 102.9 Glucose Level 143mg/dL (70-99) Calcium Level 9.2mg/dL (8.5-10.1) Micro BLOOD CULTURE Preliminary NO GROWTH AFTER 2 DAYS Enterobacter aerogenes 50,000-100,000 colony forming units per mL URINE CULTURE RES 2 Final Enterococcus faecium 50,000-100,000 colony forming units per mL ANTIMICROBIAL SUSCEPTIBILITY Final Comment S = Susceptible; I = Intermediate; R = Resistant P = Positive; N = Negative MICS are expressed in micrograms per mL Antibiotic RSLT#1 RSLT#2 RSLT#3 RSLT#4 Amoxicillin/Clavulanic Acid R Cefazolin R Cefepime R Ceftriaxone R Cefuroxime R Cephalothin R Ciprofloxacin R R Gentamicin S Imipenem R Levofloxacin R R Nitrofurantoin R I Penicillin R Piperacillin R Tetracycline R R Tobramycin S Trimethoprim/Sulfa S Vancomycin S Objective Assessment C Glabrata sepsis - 07/27 - line removed and positive 07/29. 08/01 - neg . ECHO neg veg, 07/30. Awaiting sensitivities ? DIC with elevated INR - platelets - better Acute resp failure - extubated JULIO C - Fever and chills- better Acute Anemia - Urine Enterobacter and Amp res Enterococcus 07/15 EC fistula Enterovesicular fistula Abdominal excoriation MDR Enterobacter and enterococcus faecium in urine Plan Plan of Care continue micafungin Wean daptomycin soon F/u Hgb Will need Optho eval Monitor labs. await sensitivities Critically ill ABBY MOTT MD Aug 12, 2016 07:01
[2016-08-12] MEDS: PANTOPRAZOLE IV PUSH 40 MG VIAL. IVP SCH (08:29)
[2016-08-12] MEDS: ZINC OXIDE 20% TOPICAL OINTMENT 28GM TUBE. TP SCH ×2 (08:29→21:27)
[2016-08-12] MEDS: LIDOCAINE 5% TOPICAL OINTMENT 35GM TUBE. TP SCH ×2 (08:29→21:27)
--- NOTE | 2016-08-12 08:32 | PDOC ---
Objective: Objective: Per RN - perky today, pt reports days/nights mixed up. Vital Signs: Vital Signs Date Time Temp Pulse Resp B/P Pulse Ox O2 Delivery O2 Flow Rate FiO2 08/12/16 08:00 Room Air 08/12/16 08:00 65 17 132/65 100 08/12/16 06:00 98.0 98.0 08/11/16 16:00 2.0 Labs: Laboratory Tests Test 08/11/16 11:43 08/11/16 18:08 08/12/16 00:10 08/12/16 05:50 Glucose (Fingerstick) 158mg/dL 174mg/dL 164mg/dL 133mg/dL White Blood Count 5.0x10^3/uL Red Blood Count 3.15x10^6/uL Hemoglobin 8.5g/dL Hematocrit 26.7% Mean Corpuscular Volume 85fL Mean Corpuscular Hemoglobin 27pg Mean Corpuscular Hemoglobin Concent 32g/dL Red Cell Distribution Width 24.7% Platelet Count 137x10^3/uL Neutrophils (%) (Auto) 55% Lymphocytes (%) (Auto) 28% Monocytes (%) (Auto) 11% Eosinophils (%) (Auto) 5% Basophils (%) (Auto) 1% Neutrophils # (Auto) 2.8x10^3uL Lymphocytes # (Auto) 1.4x10^3/uL Monocytes # (Auto) 0.6x10^3/uL Eosinophils # (Auto) 0.2x10^3/uL Basophils # (Auto) 0.1x10^3/uL Sodium Level 145mmol/L Potassium Level 3.6mmol/L Chloride Level 107mmol/L Carbon Dioxide Level 28mmol/L Anion Gap 10 Blood Urea Nitrogen 33mg/dL Creatinine 0.7mg/dL Estimated GFR (Cockcroft-Gault) 102.9 Glucose Level 143mg/dL Calcium Level 9.2mg/dL PE: GEN: asleep ABD: S/ND/NT, +fistulas NEURO/PSYCH: opens eyes briefly A/P: Elevated bilirubin - improved -imaging (CT, US) unrevealing ARF, sepsis, JULIO C -extubated, on TPN H/o diverticular disease w/ fistulas, multiple abd surgeries -- Continue same per GI. Question raised by RN about need for swallow eval - d/w ECHO VASC TECH yesterday, okay to proceed if ordered. MIESHA RICO Aug 12, 2016 08:32
[2016-08-12] MEDS: IPRATRPIUM/ALBUTEROL 0.5/2.5MG 3 ML NEBU. NEB SCH ×4 (09:29→20:27)
--- NOTE | 2016-08-12 10:09 | PDOC ---
PROGRESS NOTES Subjective Subjective she is talking and smiling and concurs [facility] labs reviewed. Objective Objective Vital Signs Date Time Temp Pulse Resp B/P Pulse Ox O2 Delivery O2 Flow Rate FiO2 08/12/16 09:30 Room Air 08/12/16 09:00 84 24 142/73 100 08/12/16 07:04 2.0 08/12/16 06:00 98.0 98.0 Intake and Output 08/12/16 07:00 Intake Total 1277 ml Output Total 3175 ml Balance -1898 ml Intake Oral 0 ml IV Total 1277 ml Output Urine Total 1575 ml Drainage Total 1600 ml Physical Exam Heart: Regular rate, Normal S1, Normal S2 Extremities: No edema General: Alert HEENT: Atraumatic Lungs: Clear to auscultation Neuro: Normal speech Psych/Mental Status: Mental status NL Skin: No rashes Assessment Assessment Problems Medical Problems:ana glabrata fungemia . acute hypoxic respiratory failure. extubated metabolic encephalopathy improved acute kidney injury due to ATN from sepsis. resolved bilateral lung infiltrates resolved disseminated intravascular coagulation. improved thrombocytopenia due to platelet antibody and sepsis. improved picc associated fungemia with sepsis . picc removed 4. Enterocutaneous fistula. 5. Enterovesical fistula. 6. Anemia of chronic disease. 7. Moderately severe protein calorie malnutrition. elevated bilirubin. suspect cholestasis critical illness myopathy (1) Abdominal pain Status: Acute (2) Enterocutaneous fistula Status: Acute (3) Sepsis Status: Acute (4) Urinary tract infection Status: Acute (5) UTI (urinary tract infection) Status: Acute Plan Plan of Care continue iv micafungin and daptomycin continue TPN PT and OT [facility] screen and anticipate dismissal tomorrow Comment Review of Relevant I have reviewed the following items lucila (where applicable) has been applied. Labs Laboratory Tests Test 08/10/16 10:20 08/10/16 15:01 08/10/16 15:18 08/10/16 18:30 O2 Saturation 99% (92-99) 98% (92-99) Arterial Blood pH 7.51 (7.35-7.45) 7.49 (7.35-7.45) Arterial Blood pCO2 at Patient Temp 40mmHg (35-46) 35mmHg (35-46) Arterial Blood pO2 at Patient Temp 161mmHg (65-108) 121mmHg (65-108) Arterial Blood HCO3 31mmol/L (21-28) 26mmol/L (21-28) Arterial Blood Base Excess 7mmol/L (-3-3) 3mmol/L (-3-3) FiO2 35 30 Glucose (Fingerstick) 158mg/dL (70-99) 149mg/dL (70-99) Test 08/11/16 00:54 08/11/16 03:28 08/11/16 03:37 08/11/16 05:30 Glucose (Fingerstick) 138mg/dL (70-99) 119mg/dL (70-99) O2 Saturation 99% (92-99) Arterial Blood pH 7.48 (7.35-7.45) Arterial Blood pCO2 at Patient Temp 39mmHg (35-46) Arterial Blood pO2 at Patient Temp 161mmHg (65-108) Arterial Blood HCO3 29mmol/L (21-28) Arterial Blood Base Excess 5mmol/L (-3-3) FiO2 28 White Blood Count 5.9x10^3/uL (4.0-11.0) Red Blood Count 2.75x10^6/uL (3.50-5.40) Hemoglobin 7.3g/dL (12.0-15.5) Hematocrit 23.3% (36.0-47.0) Mean Corpuscular Volume 85fL (79-100) Mean Corpuscular Hemoglobin 26pg (25-35) Mean Corpuscular Hemoglobin Concent 31g/dL (31-37) Red Cell Distribution Width 23.5% (11.5-14.5) Platelet Count 75x10^3/uL (140-400) Neutrophils (%) (Auto) 69% (31-73) Lymphocytes (%) (Auto) 17% (24-48) Monocytes (%) (Auto) 10% (0-9) Eosinophils (%) (Auto) 3% (0-3) Basophils (%) (Auto) 1% (0-3) Neutrophils # (Auto) 4.1x10^3uL (1.8-7.7) Lymphocytes # (Auto) 1.0x10^3/uL (1.0-4.8) Monocytes # (Auto) 0.6x10^3/uL (0.0-1.1) Eosinophils # (Auto) 0.2x10^3/uL (0.0-0.7) Basophils # (Auto) 0.0x10^3/uL (0.0-0.2) Sodium Level 156mmol/L (136-145) Potassium Level 3.2mmol/L (3.5-5.1) Chloride Level 116mmol/L (98-107) Carbon Dioxide Level 31mmol/L (21-32) Anion Gap 9 (6-14) Blood Urea Nitrogen 51mg/dL (7-20) Creatinine 0.8mg/dL (0.6-1.0) Estimated GFR (Cockcroft-Gault) 88.2 Glucose Level 147mg/dL (70-99) Calcium Level 9.2mg/dL (8.5-10.1) Total Bilirubin 4.8mg/dL (0.2-1.0) Direct Bilirubin 2.7mg/dL (0.0-0.2) Aspartate Amino Transf (AST/SGOT) 32U/L (15-37) Alanine Aminotransferase (ALT/SGPT) 36U/L (14-59) Alkaline Phosphatase 187U/L (46-116) Creatine Kinase 35U/L (26-192) Total Protein 5.9g/dL (6.4-8.2) Albumin 2.5g/dL (3.4-5.0) Test 08/11/16 05:34 08/11/16 11:43 08/11/16 18:08 08/12/16 00:10 Glucose (Fingerstick) 135mg/dL (70-99) 158mg/dL (70-99) 174mg/dL (70-99) 164mg/dL (70-99) Test 08/12/16 05:50 White Blood Count 5.0x10^3/uL (4.0-11.0) Red Blood Count 3.15x10^6/uL (3.50-5.40) Hemoglobin 8.5g/dL (12.0-15.5) Hematocrit 26.7% (36.0-47.0) Mean Corpuscular Volume 85fL (79-100) Mean Corpuscular Hemoglobin 27pg (25-35) Mean Corpuscular Hemoglobin Concent 32g/dL (31-37) Red Cell Distribution Width 24.7% (11.5-14.5) Platelet Count 137x10^3/uL (140-400) Neutrophils (%) (Auto) 55% (31-73) Lymphocytes (%) (Auto) 28% (24-48) Monocytes (%) (Auto) 11% (0-9) Eosinophils (%) (Auto) 5% (0-3) Basophils (%) (Auto) 1% (0-3) Neutrophils # (Auto) 2.8x10^3uL (1.8-7.7) Lymphocytes # (Auto) 1.4x10^3/uL (1.0-4.8) Monocytes # (Auto) 0.6x10^3/uL (0.0-1.1) Eosinophils # (Auto) 0.2x10^3/uL (0.0-0.7) Basophils # (Auto) 0.1x10^3/uL (0.0-0.2) Sodium Level 145mmol/L (136-145) Potassium Level 3.6mmol/L (3.5-5.1) Chloride Level 107mmol/L (98-107) Carbon Dioxide Level 28mmol/L (21-32) Anion Gap 10 (6-14) Blood Urea Nitrogen 33mg/dL (7-20) Creatinine 0.7mg/dL (0.6-1.0) Estimated GFR (Cockcroft-Gault) 102.9 Glucose Level 143mg/dL (70-99) Glucose (Fingerstick) 133mg/dL (70-99) Calcium Level 9.2mg/dL (8.5-10.1) Laboratory Tests Test 08/11/16 11:43 08/11/16 18:08 08/12/16 00:10 08/12/16 05:50 Glucose (Fingerstick) 158mg/dL (70-99) 174mg/dL (70-99) 164mg/dL (70-99) 133mg/dL (70-99) White Blood Count 5.0x10^3/uL (4.0-11.0) Red Blood Count 3.15x10^6/uL (3.50-5.40) Hemoglobin 8.5g/dL (12.0-15.5) Hematocrit 26.7% (36.0-47.0) Mean Corpuscular Volume 85fL (79-100) Mean Corpuscular Hemoglobin 27pg (25-35) Mean Corpuscular Hemoglobin Concent 32g/dL (31-37) Red Cell Distribution Width 24.7% (11.5-14.5) Platelet Count 137x10^3/uL (140-400) Neutrophils (%) (Auto) 55% (31-73) Lymphocytes (%) (Auto) 28% (24-48) Monocytes (%) (Auto) 11% (0-9) Eosinophils (%) (Auto) 5% (0-3) Basophils (%) (Auto) 1% (0-3) Neutrophils # (Auto) 2.8x10^3uL (1.8-7.7) Lymphocytes # (Auto) 1.4x10^3/uL (1.0-4.8) Monocytes # (Auto) 0.6x10^3/uL (0.0-1.1) Eosinophils # (Auto) 0.2x10^3/uL (0.0-0.7) Basophils # (Auto) 0.1x10^3/uL (0.0-0.2) Sodium Level 145mmol/L (136-145) Potassium Level 3.6mmol/L (3.5-5.1) Chloride Level 107mmol/L (98-107) Carbon Dioxide Level 28mmol/L (21-32) Anion Gap 10 (6-14) Blood Urea Nitrogen 33mg/dL (7-20) Creatinine 0.7mg/dL (0.6-1.0) Estimated GFR (Cockcroft-Gault) 102.9 Glucose Level 143mg/dL (70-99) Calcium Level 9.2mg/dL (8.5-10.1) Microbiology 08/01/16 Blood Culture - Final, Complete NO GROWTH AFTER 5 DAYS 07/15/16 Urine Culture - Final, Complete 07/15/16 Urine Culture Result 1 (ROYA) - Final, Complete 07/15/16 Urine Culture Result 2 (ROYA) - Final, Complete 07/15/16 Antimicrobic Susceptibility - Final, Complete 07/29/16 Aerobic Culture - Final, Complete 07/29/16 Aerobic Culture Result 1 (ROYA) - Final, Complete Medications Current Medications Piperacillin Sod/ Tazobactam Sod/ Sodium Chloride (Zosyn/Iv Sodium Chloride 0.9 % 100ml) 100 ml @ 200 mls/hr 1X ONCE IV Last administered on 07/15/16 22:56; Start 07/15/16 at 22:00; Stop 07/15/16 at 22:29; Status DC Fentanyl Citrate 50 mcg 50 mcg PRN Q15MIN PRN IV PAIN GREATER THAN 3/10 Last administered on 07/16/16 00:30; Start 07/15/16 at 21:45; Stop 07/16/16 at 02:00; Status DC Sodium Chloride 1,000 ml @ 1,000 mls/hr 1X ONCE IV Last administered on 21:59; Start 07/15/16 at 22:00; Stop 07/15/16 at 22:59; Status DC Sodium Chloride (Iv Sodium Chloride 0.9% 500ml Bag) 500 ml @ 500 mls/hr 1X ONCE IV Last administered on 07/15/16 22:00; Start 07/15/16 at 22:00; Stop at 22:59; Status DC Ondansetron HCl (Zofran) 4 mg PRN Q8HRS PRN IV NAUSEA/VOMITING; Start 07/15/16 at 23:30; Stop 07/16/16 at 08:52; Status DC Fentanyl Citrate 50 mcg 50 mcg PRN Q2HR PRN IV SEVERE PAIN Last administered on 07/16/16 08:10; Start 07/15/16 at 23:30; Stop 07/16/16 at 08:52; Status DC Sodium Chloride (Iv Sodium Chloride 0.9% 1000ml Bag) 1,000 ml @ 150 mls/hr Q6H40M IV Last administered on 07/15/16 02:00; Start 07/15/16 at 23:45; Stop 07/16/16 at 08:52; Status DC Acetaminophen (Tylenol) 650 mg PRN Q4HRS PRN PO FEVER; Start 07/15/16 at 23:30; Stop 07/16/16 at 23:29; Status DC Info (Do NOT chart on this placeholder) 1 each PRN DAILY PRN MC NEEDS VERIFICATION; Start 07/16/16 at 03:00; Status Cancel Acetaminophen 650 mg 650 mg PRN Q4HRS PRN PO MILD PAIN / TEMP Last administered on 07/28/16 07:42; Start 07/16/16 at 08:45; Stop 07/29/16 at 08:33 ; Status DC Piperacillin Sod/ Tazobactam Sod 3.375 gm/Sodium Chloride 50 ml @ 100 mls/hr Q6HRS IV Last administered on 07/18/16 05:50; Start 07/16/16 at 10:00; Stop 07/18 at 13:28; Status DC Linezolid (Zyvox Premix) 300 ml @ 300 mls/hr Q12HR IV Last administered on 07/18 08:34; Start 07/16/16 at 10:00; Stop 07/18/16 at 13:28; Status DC Hydromorphone HCl (Dilaudid) 2 mg PRN Q4HRS PRN IV MODERATE PAIN Last administered on 08/09/16 06:39; Start 07/16/16 at 08:45; Stop 08/09/16 at 17:35 ; Status DC Hydromorphone HCl (Dilaudid) 4 mg PRN Q4HRS PRN IV SEVERE PAIN Last administered on 07/30/16 09:23; Start 07/16/16 at 08:45; Stop 07/31/16 at 15:01 ; Status DC Pantoprazole Sodium (Protonix) 40 mg DAILYAC PO Last administered on 07/27/16 11:11; Start 07/16/16 at 09:30; Stop 07/29/16 at 08:44; Status DC Hyoscyamine (Anaspaz) 0.125 mg Q6HRS PO Last administered on 07/20/16 05:20; Start 07/16/16 at 12:00; Stop 07/20/16 at 08:58; Status DC Phenazopyridine HCl (Pyridium) 200 mg TID PO Last administered on 07/20/16 08: 25; Start 07/16/16 at 09:30; Stop 07/20/16 at 08:58; Status DC Lorazepam (Ativan) 0.5 mg PRN BID PRN PO ANXIETY / AGITATION Last administered on 07/29/16 02:16; Start 07/16/16 at 08:45; Stop 07/31/16 at 15:01; Status DC Simethicone (Gas-X) 80 mg PRN Q4HRS PRN PO GAS / BLOATING Last administered on 07/24/16 22:30; Start 07/16/16 at 08:45; Stop 07/31/16 at 15:01; Status DC Zolpidem Tartrate 5 mg 5 mg PRN QHS PRN PO INSOMNIA Last administered on 23:14; Start 07/16/16 at 08:45; Stop 07/31/16 at 15:01; Status DC Potassium Chloride/Dextrose/ Sod Cl 1,000 ml @ 80 mls/hr [id number] IV Last administered on 07/16/16 10:54; Start 07/16/16 at 09:30; Stop 07/16/16 at 21:59; Status DC Fluconazole/ Sodium Chloride (Diflucan 200mg/ 100ml Premix) 100 ml @ 100 mls/ hr Q24H IV Last administered on 07/18/16 11:43; Start 07/16/16 at 11:00; Stop at 13:28; Status DC Info 1 each 1 each PRN DAILY PRN MC SEE COMMENTS Last administered on 12:41; Start 07/16/16 at 10:00; Stop 08/01/16 at 11:24; Status DC Sodium Chloride 220 meq/Sodium Acetate 90 meq/ Potassium Chloride 50 meq/ Potassium Acetate 15 meq/Potassium Phosphate 10 mmol/ Magnesium Sulfate 50 meq/ Calcium Gluconate 6 meq/ Multivitamins/ Minerals 10 ml/ Chromium/Copper/ Manganese/Seleni/ Zn 1 ml/Total Parenteral Nutrition/Amino Acids/Dextro... 1, 920 ml @ 80 mls/hr TPN CONT IV ; Start 07/16/16 at 22:00; Stop 07/16/16 at 22:00 ; Status DC Sodium Chloride/ Sodium Acetate/ Potassium Chloride/ Potassium Acetate/ Potassium Phosphate/ Magnesium Sulfate/ Calcium Gluconate/ Multivitamins/ Minerals/Chromium/ Copper/Manganese/ Seleni/Zn/Total Parenteral Nutrition/Amino Acids/Dextrose/ Fat Emulsion Intravenous (Sodium Chlori... 1,820 ml @ 75.833 mls/ hr TPN CONT IV Last administered on 07/16/16 21:03; Start 07/16/16 at 22: 00; Stop 07/17/16 at 21:59; Status DC Ondansetron HCl (Zofran) 4 mg PRN Q6HRS PRN IV NAUSEA/VOMITING Last administered on 07/21/16 08:48; Start 07/16/16 at 17:15; Stop 07/31/16 at 15:01; Status DC Diphenhydramine HCl (Benadryl) 25 mg PRN Q6HRS PRN PO ITCHING Last administered on 07/25/16 23:38; Start 07/16/16 at 17:45; Stop 07/31/16 at 15:01 ; Status DC Lidocaine (Xylocaine) 1 sang BID TP Last administered on 08/12/16 08:29; Start 07/17/16 at 09:00 Zinc Oxide 1 sang 1 sang BID TP Last administered on 08/12/16 08:29; Start at 09:30 Sodium Chloride/ Sodium Acetate/ Potassium Chloride/ Potassium Acetate/ Potassium Phosphate/ Magnesium Sulfate/ Calcium Gluconate/ Multivitamins/ Minerals/Chromium/ Copper/Manganese/ Seleni/Zn/Total Parenteral Nutrition/Amino Acids/Dextrose/ Fat Emulsion Intravenous (Sodium Chlori... 1,920 ml @ 80 mls/ hr TPN CONT IV Last administered on 07/17/16 22:13; Start 07/17/16 at 22:00; Stop 07/18/16 at 21:59; Status DC Furosemide 40 mg 40 mg 1X ONCE IVP Last administered on 07/18/16 11:43; Start 07/18/16 at 11:00; Stop 07/18/16 at 11:07; Status DC Sodium Chloride 220 meq/Sodium Acetate 90 meq/ Potassium Chloride 50 meq/ Potassium Acetate 15 meq/Potassium Phosphate 10 mmol/ Magnesium Sulfate 50 meq/ Calcium Gluconate 3 meq/ Multivitamins/ Minerals 10 ml/ Chromium/Copper/ Manganese/Seleni/ Zn 1 ml/Total Parenteral Nutrition/Amino Acids/Dextro... 1, 920 ml @ 80 mls/hr TPN CONT IV Last administered on 07/19/16 00:03; Start 07/18/16 at 22:00; Stop 07/19/16 at 21:59; Status DC Meropenem 1 gm/ Sodium Chloride 100 ml @ 200 mls/hr Q8HRS IV Last administered on 07/20/16 05:21; Start 07/18/16 at 14:00; Stop 07/20/16 at 11:25; Status DC Micafungin Sodium 100 mg/Dextrose 100 ml @ 100 mls/hr Q24H IV Last administered on 07/19/16 15:05; Start 07/18/16 at 14:00; Stop 07/20/16 at 11:25; Status DC Daptomycin/Sodium Chloride (Cubicin/Iv Sodium Chloride 0.9% 50ml) 50 ml @ 100 mls/hr Q24H IV Last administered on 07/19/16 16:56; Start 07/18/16 at 15:00; Stop 07/20/16 at 11:25; Status DC Alteplase, Recombinant (Cathflo) 2 mg 1X ONCE INT CAT Last administered on 07/19 06:24; Start 07/19/16 at 07:00; Stop 07/19/16 at 07:01; Status DC Gentamicin Sulfate 1 each 1 each PRN DAILY PRN MC SEE COMMENTS Last administered on 07/25/16 15:31; Start 07/19/16 at 12:15; Stop 07/25/16 at 16:14 ; Status DC Gentamicin Sulfate/Sodium Chloride (Iv Sodium Chloride 0.9% 100ml) 106.75 ml @ 106.75 mls/hr Q24H IV Last administered on 07/25/16 15:31; Start 07/19/16 at 13 :00; Stop 07/25/16 at 16:12; Status DC Gentamicin Sulfate 1 each 1 each 1X ONCE MC Last administered on 07/19/16 23: 00; Start 07/19/16 at 23:00; Stop 07/19/16 at 23:01; Status DC Sodium Chloride/ Sodium Acetate/ Potassium Chloride/ Potassium Acetate/ Potassium Phosphate/ Magnesium Sulfate/ Calcium Gluconate/ Multivitamins/ Minerals/Chromium/ Copper/Manganese/ Seleni/Zn/Total Parenteral Nutrition/Amino Acids/Dextrose/ Fat Emulsion Intravenous (Sodium Chlori... 1,920 ml @ 80 mls/ hr TPN CONT IV Last administered on 07/19/16 20:51; Start 07/19/16 at 22:00; Stop 07/20/16 at 21:59; Status DC Hyoscyamine (Anaspaz) 0.125 mg PRN Q6HRS PRN PO BLADDER SPASM; Start 07/20/16 at 09:00; Stop 07/31/16 at 15:01; Status DC Phenazopyridine HCl 200 mg 200 mg PRN TID PRN PO BLADDER SPASM Last administered on 07/21/16 20:14; Start 07/20/16 at 09:00; Stop 07/31/16 at 15:01; Status DC Linezolid 300 ml @ 300 mls/hr Q12HR IV Last administered on 07/25/16 09:02; Start 07/20/16 at 12:00; Stop 07/25/16 at 16:12; Status DC Sodium Chloride 220 meq/Sodium Acetate 90 meq/ Potassium Chloride 50 meq/ Potassium Acetate 15 meq/Potassium Phosphate 10 mmol/ Magnesium Sulfate 50 meq/ Calcium Gluconate 3 meq/ Multivitamins/ Minerals 10 ml/ Chromium/Copper/ Manganese/Seleni/ Zn 1 ml/Total Parenteral Nutrition/Amino Acids/Dextro... 1, 920 ml @ 80 mls/hr TPN CONT IV Last administered on 07/20/16 21:30; Start 07/20/16 at 22:00; Stop 07/21/16 at 21:59; Status DC Sodium Chloride/ Sodium Acetate/ Potassium Chloride/ Potassium Acetate/ Potassium Phosphate/ Magnesium Sulfate/ Multivitamins/ Minerals/Chromium/ Copper /Manganese/ Seleni/Zn/Total Parenteral Nutrition/Amino Acids/Dextrose/ Fat Emulsion Intravenous (Sodium Chloride/ Potass... 1,920 ml @ 80 mls/hr TPN CONT IV Last administered on 07/21/16 22:05; Start 07/21/16 at 22:00; Stop at 21:59; Status DC Alteplase, Recombinant 2 mg 2 mg PRN DAILY PRN INT CAT INFLAMMATION Last administered on 07/27/16 11:31; Start 07/21/16 at 15:00 Sodium Chloride 220 meq/Sodium Acetate 90 meq/ Potassium Chloride 50 meq/ Potassium Acetate 15 meq/Potassium Phosphate 10 mmol/ Magnesium Sulfate 50 meq/ Multivitamins/ Minerals 10 ml/ Chromium/Copper/ Manganese/Seleni/ Zn 1 ml/Total Parenteral Nutrition/Amino Acids/Dextrose/ Fat Emuls... 1,920 ml @ 80 mls/hr TPN CONT IV Last administered on 07/22/16 20:53; Start 07/22/16 at 22:00; Stop 07/23/16 at 21:59; Status DC Sodium Chloride/ Sodium Acetate/ Potassium Chloride/ Potassium Acetate/ Potassium Phosphate/ Magnesium Sulfate/ Multivitamins/ Minerals/Chromium/ Copper /Manganese/ Seleni/Zn/Total Parenteral Nutrition/Amino Acids/Dextrose/ Fat Emulsion Intravenous (Sodium Chloride/ Potass... 1,920 ml @ 80 mls/hr TPN CONT IV Last administered on 07/23/16 21:16; Start 07/23/16 at 22:00; Stop 07/24 at 21:59; Status DC Gentamicin Sulfate 1 each 1 each 1X ONCE MC ; Start 07/23/16 at 22:00; Stop 07/23 at 22:01; Status Cancel Sodium Chloride/ Sodium Acetate/ Potassium Chloride/ Potassium Acetate/ Potassium Phosphate/ Magnesium Sulfate/ Multivitamins/ Minerals/Chromium/ Copper /Manganese/ Seleni/Zn/Total Parenteral Nutrition/Amino Acids/Dextrose/ Fat Emulsion Intravenous (Sodium Chloride/ Potass... 1,920 ml @ 80 mls/hr TPN CONT IV Last administered on 07/24/16 21:15; Start 07/24/16 at 22:00; Stop 04/30 at 21:59; Status DC Gentamicin Sulfate 1 each 1X ONCE MC ; Start 07/25/16 at 12:30; Stop 07/25/16 at 12:31; Status Cancel Amlodipine Besylate 5 mg 5 mg DAILY PO Last administered on 07/27/16 11:12; Start 07/25/16 at 12:00; Stop 07/29/16 at 08:44; Status DC Sodium Chloride 220 meq/Sodium Acetate 90 meq/ Potassium Chloride 30 meq/ Potassium Acetate 15 meq/Potassium Phosphate 10 mmol/ Magnesium Sulfate 50 meq/ Multivitamins/ Minerals 10 ml/ Chromium/Copper/ Manganese/Seleni/ Zn 1 ml/Total Parenteral Nutrition/Amino Acids/Dextrose/ Fat Emuls... 1,920 ml @ 80 mls/hr TPN CONT IV Last administered on 07/25/16 22:25; Start 07/25/16 at 22:00; Stop 07/26/16 at 21:59; Status DC Sodium Chloride/ Sodium Acetate/ Potassium Chloride/ Potassium Acetate/ Potassium Phosphate/ Magnesium Sulfate/ Multivitamins/ Minerals/Chromium/ Copper /Manganese/ Seleni/Zn/Total Parenteral Nutrition/Amino Acids/Dextrose/ Fat Emulsion Intravenous (Sodium Chloride/ Potass... 1,920 ml @ 80 mls/hr TPN CONT IV Last administered on 07/26/16 23:16; Start 07/26/16 at 22:00; Stop at 21:59; Status DC Furosemide 20 mg 20 mg 1X ONCE IVP Last administered on 07/27/16 11:31; Start 07/27/16 at 09:00; Stop 07/27/16 at 09:01; Status DC Daptomycin 340 mg/ Sodium Chloride 50 ml @ 100 mls/hr Q24H IV Last administered on 07/29/16 15:05; Start 07/27/16 at 13:00; Stop 07/30/16 at 07:25 ; Status DC Piperacillin Sod/ Tazobactam Sod 3.375 gm/Sodium Chloride 50 ml @ 100 mls/hr Q6HRS IV Last administered on 07/30/16 05:30; Start 07/27/16 at 12:30; Stop at 07:25; Status DC Fluconazole/ Sodium Chloride 100 ml @ 100 mls/hr Q24H IV Last administered on 07/28/16 13:32; Start 07/27/16 at 13:00; Stop 07/29/16 at 00:53; Status DC Sodium Chloride 1,000 ml @ 1,000 mls/hr 1X ONCE IV Last administered on 12:34; Start 07/27/16 at 12:30; Stop 07/27/16 at 13:29; Status DC Sodium Chloride 220 meq/Sodium Acetate 90 meq/ Potassium Chloride 30 meq/ Potassium Acetate 15 meq/Potassium Phosphate 10 mmol/ Magnesium Sulfate 45 meq/ Multivitamins/ Minerals 10 ml/ Chromium/Copper/ Manganese/Seleni/ Zn 1 ml/Total Parenteral Nutrition/Amino Acids/Dextrose/ Fat Emuls... 1,920 ml @ 80 mls/hr TPN CONT IV Last administered on 07/27/16 22:38; Start 07/27/16 at 22:00; Stop 07/28/16 at 21:59; Status DC Sodium Chloride (Iv Sodium Chloride 0.9% 1000ml Bag) 1,000 ml @ 45 mls/hr [id number] IV Last administered on 07/28/16 03:24; Start 07/27/16 at 17:00; Stop 07/28/16 at 10:27; Status DC Acetaminophen 650 mg 650 mg PRN Q6HRS PRN [place] fever Last administered on 03:57; Start 07/27/16 at 16:30; Stop 07/29/16 at 08:33; Status DC Sodium Chloride 1,000 ml @ 427.5 mls/ hr Q2H21M IV Last administered on 19:30; Start 07/27/16 at 19:30; Stop 07/27/16 at 23:30; Status DC Sodium Chloride 220 meq/Sodium Acetate 90 meq/ Potassium Chloride 30 meq/ Potassium Acetate 15 meq/Potassium Phosphate 10 mmol/ Magnesium Sulfate 45 meq/ Multivitamins/ Minerals 10 ml/ Chromium/Copper/ Manganese/Seleni/ Zn 1 ml/Total Parenteral Nutrition/Amino Acids/Dextrose/ Fat Emuls... 1,920 ml @ 80 mls/hr TPN CONT IV Last administered on 07/28/16 21:43; Start 07/28/16 at 22:00; Stop 07/29/16 at 21:59; Status DC Micafungin Sodium/ Dextrose (Mycamine) 100 ml @ 100 mls/hr Q24H IV Last administered on 08/12/16 00:09; Start 07/29/16 at 01:00 Lorazepam (Ativan) 0.05 mg PRN Q4HRS PRN IV ANXIETY / AGITATION; Start at 02:30; Stop 07/29/16 at 02:48; Status DC Lorazepam (Ativan) 0.5 mg PRN Q4HRS PRN IV ANXIETY / AGITATION Last administered on 08/09/16 17:19; Start 07/29/16 at 03:00 Acetaminophen (Tylenol) 650 mg PRN Q4HRS PRN [place] MILD PAIN / TEMP; Start at 08:30 Ketorolac Tromethamine (Toradol) 30 mg PRN Q6HRS PRN IV PAIN/FEVER Last administered on 07/30/16 00:50; Start 07/29/16 at 08:30; Stop 07/30/16 at 13:01 ; Status DC Pantoprazole Sodium 40 mg 40 mg DAILYAC IVP Last administered on 08/12/16 08:29 ; Start 07/29/16 at 09:00 Sodium Chloride 1,000 ml @ 45 mls/hr [id number] IV Last administered on 09:17; Start 07/29/16 at 08:45; Stop 07/31/16 at 15:01; Status DC Sodium Chloride/ Sodium Acetate/ Potassium Chloride/ Potassium Acetate/ Potassium Phosphate/ Magnesium Sulfate/ Multivitamins/ Minerals/Chromium/ Copper /Manganese/ Seleni/Zn/Total Parenteral Nutrition/Amino Acids/Dextrose/ Fat Emulsion Intravenous (Sodium Chloride/ Potass... 1,920 ml @ 80 mls/hr TPN CONT IV Last administered on 07/29/16 22:06; Start 07/29/16 at 22:00; Stop at 21:59; Status DC Lidocaine/Sodium Bicarbonate 20 ml 20 ml STK-MED ONCE IJ ; Start 07/29/16 at 13: 13; Stop 07/29/16 at 13:14; Status DC Heparin Sodium/ Sodium Chloride 500 ml @ As Directed STK-MED ONCE .ROUTE ; Start 07/29/16 at 13:13; Stop 07/29/16 at 13:14; Status DC Lidocaine/ Epinephrine (Xylocaine 1%-Epi 1:100,000) 20 ml STK-MED ONCE .ROUTE ; Start 07/29/16 at 13:22; Stop 07/29/16 at 13:23; Status DC Midazolam HCl (Versed) 5 mg STK-MED ONCE .ROUTE ; Start 07/29/16 at 13:32; Stop 07/29/16 at 13:33; Status DC Fentanyl Citrate (Fentanyl 5ml Vial) 250 mcg STK-MED ONCE .ROUTE ; Start at 13:32; Stop 07/29/16 at 13:33; Status DC Heparin Sodium/ Sodium Chloride 1,000 unit 1X ONCE IART Last administered on 13:45; Start 07/29/16 at 13:45; Stop 07/29/16 at 13:48; Status DC Midazolam HCl (Versed) 5 mg 1X ONCE IV Last administered on 07/29/16 13:45; Start 07/29/16 at 13:45; Stop 07/29/16 at 13:48; Status DC Fentanyl Citrate (Fentanyl 5ml Vial) 250 mcg 1X ONCE IV Last administered on 13:45; Start 07/29/16 at 13:45; Stop 07/29/16 at 13:48; Status DC Lidocaine/ Epinephrine 20 ml 20 ml 1X ONCE IJ Last administered on 07/29/16 13:45; Start 07/29/16 at 13:45; Stop 07/29/16 at 13:48; Status DC Sodium Chloride 220 meq/Sodium Acetate 90 meq/ Potassium Chloride 15 meq/ Potassium Acetate 30 meq/Potassium Phosphate 10 mmol/ Magnesium Sulfate 45 meq/ Multivitamins/ Minerals 10 ml/ Chromium/Copper/ Manganese/Seleni/ Zn 1 ml/Total Parenteral Nutrition/Amino Acids/Dextrose/ Fat Emuls... 1,920 ml @ 80 mls/hr TPN CONT IV ; Start 07/30/16 at 22:00; Stop 07/31/16 at 21:59; Status DC Norepinephrine Bitartrate 8 mg/ Sodium Chloride 258 ml @ 1.93 mls/hr 1X ONCE IV Last administered on 07/30/16 11:17; Start 07/30/16 at 11:15; Stop at 15:43; Status DC Norepinephrine Bitartrate/Sodium Chloride (Levophed Vial/ Iv Sodium Chloride 0.9 % 250ml) 258 ml @ 0 mls/hr CONT PRN IV SEE I/O RECORD Last administered on 08/02 19:54; Start 07/30/16 at 11:15; Stop 08/04/16 at 09:29; Status DC Furosemide 60 mg 60 mg 1X ONCE IVP Last administered on 07/30/16 11:14; Start 07/30/16 at 11:15; Stop 07/30/16 at 11:16; Status DC Sodium Chloride 500 ml @ 500 mls/hr Q1H IV Last administered on 07/30/16 17: 04; Start 07/30/16 at 14:30; Stop 07/30/16 at 15:29; Status DC Albumin Human 100 ml @ 100 mls/hr Q8HRS IV Last administered on 07/31/16 05: 37; Start 07/30/16 at 14:30; Stop 07/31/16 at 06:59; Status DC Furosemide/Sodium Chloride (Lasix Drip/Iv Sodium Chloride 0.9% 100ml) 100 ml @ 0 mls/hr CONT PRN IV SEE I/O RECORD Last administered on 07/31/16 03:17; Start 07/30/16 at 14:30; Stop 08/01/16 at 13:19; Status DC Ondansetron HCl (Zofran) 8 mg PRN Q8HRS PRN IV NAUSEA/VOMITING Last administered on 07/30/16 14:38; Start 07/30/16 at 14:30 Sodium Bicarbonate 50 meq 50 meq 1X ONCE IV Last administered on 07/30/16 14: 43; Start 07/30/16 at 14:30; Stop 07/30/16 at 14:31; Status DC Heparin Sodium/ Sodium Chloride 500 ml @ As Directed STK-MED ONCE .ROUTE ; Start 07/30/16 at 14:49; Stop 07/30/16 at 14:50; Status DC Lidocaine HCl 20 ml STK-MED ONCE .ROUTE ; Start 07/30/16 at 14:49; Stop at 14:50; Status DC Midazolam HCl (Versed) 2 mg STK-MED ONCE .ROUTE ; Start 07/30/16 at 15:19; Stop 07/30/16 at 15:20; Status DC Heparin Sodium/ Sodium Chloride 1,000 unit 1X ONCE IART Last administered on 15:44; Start 07/30/16 at 15:45; Stop 07/30/16 at 15:46; Status DC Midazolam HCl (Versed) 1.5 mg 1X ONCE IV Last administered on 07/30/16 15:44 ; Start 07/30/16 at 15:45; Stop 07/30/16 at 15:46; Status DC Lidocaine HCl 20 ml 1X ONCE IJ Last administered on 07/30/16 15:44; Start at 15:45; Stop 07/30/16 at 15:46; Status DC Heparin Sodium (Porcine) 33352 unit 10,000 unit STK-MED ONCE .ROUTE ; Start at 15:54; Stop 07/30/16 at 15:55; Status DC Fentanyl Citrate 30 ml @ 0 mls/hr CONT PRN PRN IV PROTOCOL Last administered on 08/08/16 10:21; Start 07/30/16 at 16:45; Stop 08/08/16 at 11:03; Status DC Sodium Bicarbonate/ Dextrose 1,150 ml @ 125 mls/hr 1X ONCE IV Last administered on 07/30/16 18:34; Start 07/30/16 at 17:30; Stop 07/31/16 at 02:41 ; Status DC Succinylcholine Chloride 200 mg 200 mg STK-MED ONCE .ROUTE ; Start 07/30/16 at 19:47; Stop 07/30/16 at 19:48; Status DC Propofol 100 ml @ As Directed STK-MED ONCE IV ; Start 07/30/16 at 19:48; Stop 07/30/16 at 19:49; Status DC Midazolam HCl (Versed 100mg/ 100ml Premix) 100 ml @ 0 mls/hr CONT PRN IV SEE I/ O RECORD Last administered on 08/03/16 12:18; Start 07/30/16 at 21:15 Sodium Bicarbonate 50 meq 50 meq 1X ONCE IV Last administered on 07/30/16 22: 15; Start 07/30/16 at 22:30; Stop 07/30/16 at 22:31; Status DC Dopamine HCl/ Dextrose 250 ml @ 11.513 mls/ hr CONT PRN IV SEE I/O RECORD Last administered on 07/31/16 20:16; Start 07/30/16 at 22:15; Stop 08/04/16 at 09:29; Status DC Sodium Bicarbonate/ Dextrose 1,150 ml @ 125 mls/hr Q9H12M IV Last administered on 08/01/16 09:30; Start 07/31/16 at 03:00; Stop 08/01/16 at 13:19 ; Status DC Propofol (Diprivan) 1,000 mg STK-MED ONCE IV ; Start 07/30/16 at 20:00; Stop at 08:16; Status DC Succinylcholine Chloride 200 mg 200 mg STK-MED ONCE .ROUTE ; Start 07/30/16 at 20:00; Stop 07/31/16 at 08:16; Status DC Tigecycline 50 mg/ Sodium Chloride 50 ml @ 100 mls/hr Q12HR IV Last administered on 08/04/16 09:01; Start 07/31/16 at 21:00; Stop 08/04/16 at 10:00 ; Status DC Tigecycline/ Sodium Chloride (Tygacil/Iv Sodium Chloride 0.9% 100ml) 100 ml @ 200 mls/hr 1X ONCE IV Last administered on 07/31/16 09:22; Start 07/31/16 at 09:00; Stop 07/31/16 at 09:29; Status DC Darbepoetin Sarbjit 60 mcg 60 mcg [id number] SQ Last administered on 08/07/16 21:41 ; Start 07/31/16 at 21:00 Albumin Human 100 ml @ 100 mls/hr 1X ONCE IV Last administered on 07/31/16 11:40; Start 07/31/16 at 11:15; Stop 07/31/16 at 12:14; Status DC Albumin Human 100 ml @ 100 mls/hr 1X ONCE IV Last administered on 07/31/16 12:03; Start 07/31/16 at 11:15; Stop 07/31/16 at 12:14; Status DC Sodium Chloride (Iv Sodium Chloride 0.9% 1000ml Bag) 1,000 ml @ 1,000 mls/hr Q1H PRN IV hypotension; Start 07/31/16 at 11:33; Stop 07/31/16 at 17:32; Status DC Info (PHARMACY MONITORING -- do not chart) 1 each PRN DAILY PRN MC SEE COMMENTS ; Start 07/31/16 at 11:45 Info (PHARMACY MONITORING -- do not chart) 1 each PRN DAILY PRN MC SEE COMMENTS ; Start 07/31/16 at 11:45; Status UNV Hydrocortisone Sodium Succinate (Solu-Cortef) 100 mg Q8HRS IV Last administered on 08/04/16 06:16; Start 08/01/16 at 07:00; Stop 08/04/16 at 09:29 ; Status DC Albuterol/ Ipratropium (Duoneb) 3 ml RTQID NEB Last administered on 08/12/16 09 :29; Start 08/01/16 at 08:00 Albuterol/ Ipratropium 3 ml 3 ml STK-MED ONCE .ROUTE Last administered on 07:34; Start 08/01/16 at 06:59; Stop 08/01/16 at 07:00; Status DC Sodium Chloride 1,000 ml @ 1,000 mls/hr Q1H PRN IV hypotension; Start 08/01/16 at 06:57; Stop 08/01/16 at 12:56; Status DC Albumin Human (Albuminar) 200 ml @ 200 mls/hr 1X PRN PRN IV Hypotension; Start 08/01/16 at 07:00; Stop 08/01/16 at 12:59; Status DC Info (PHARMACY MONITORING -- do not chart) 1 each PRN DAILY PRN MC SEE COMMENTS ; Start 08/01/16 at 07:00; Status UNV Info 1 each 1 each PRN DAILY PRN MC SEE COMMENTS Last administered on 13:34; Start 08/01/16 at 13:30 Sodium Chloride 220 meq/Sodium Acetate 90 meq/ Potassium Chloride 15 meq/ Potassium Acetate 30 meq/Potassium Phosphate 10 mmol/ Magnesium Sulfate 45 meq/ Multivitamins/ Minerals 10 ml/ Chromium/Copper/ Manganese/Seleni/ Zn 1 ml/Total Parenteral Nutrition/Amino Acids/Dextrose/ Fat Emuls... 1,920 ml @ 80 mls/hr TPN CONT IV Last administered on 08/01/16 21:56; Start 08/01/16 at 22:00; Stop 08/02/16 at 21:59; Status DC Potassium Chloride (KCl Premix 20meq) 50 ml @ 50 mls/hr Q1H IV Last administered on 08/01/16 19:05; Start 08/01/16 at 17:00; Stop 08/01/16 at 18:59 ; Status DC Insulin Aspart 0-6 UNITS TIDWMEALS SQ Last administered on 08/02/16 11:33; Start 08/02/16 at 12:00; Stop 08/02/16 at 14:34; Status DC Sodium Chloride 220 meq/Sodium Acetate 90 meq/ Potassium Chloride 15 meq/ Potassium Acetate 30 meq/Magnesium Sulfate 45 meq/ Multivitamins/ Minerals 10 ml / Chromium/Copper/ Manganese/Seleni/ Zn 1 ml/Total Parenteral Nutrition/Amino Acids/Dextrose/ Fat Emulsion Intravenous 1,920 ml @ 80 mls/hr TPN CONT IV Last administered on 08/02/16 21:34; Start 08/02/16 at 22:00; Stop 08/03/16 at 21:59; Status DC Levofloxacin/ Dextrose 150 ml @ 100 mls/hr 1X ONCE IV Last administered on 14:35; Start 08/02/16 at 14:00; Stop 08/02/16 at 15:29; Status DC Daptomycin/Sodium Chloride (Cubicin/Iv Sodium Chloride 0.9% 50ml) 50 ml @ 100 mls/hr ONCE ONCE IV Last administered on 08/02/16 14:34; Start 08/02/16 at 15 :00; Stop 08/02/16 at 15:29; Status DC Insulin Aspart 0-6 UNITS Q6HRS SQ Last administered on 08/11/16 18:13; Start 08/02/16 at 18:00 Sodium Chloride (Iv Sodium Chloride 0.9% 1000ml Bag) 1,000 ml @ 1,000 mls/hr Q1H PRN IV hypotension; Start 08/03/16 at 07:26; Stop 08/03/16 at 13:25; Status DC Diphenhydramine HCl (Benadryl) 25 mg 1X PRN PRN IV ITCHING; Start 08/03/16 at 07:30; Stop 08/04/16 at 07:29; Status DC Diphenhydramine HCl (Benadryl) 25 mg 1X PRN PRN IV ITCHING; Start 08/03/16 at 07:30; Stop 08/04/16 at 07:29; Status DC Sodium Chloride (Normal Saline Flush) 10 ml 1X PRN PRN IV AP catheter pack; Start 08/03/16 at 07:30; Stop 08/04/16 at 07:29; Status DC Sodium Chloride 10 ml 10 ml 1X PRN PRN IV SET UP OPERATOR TOOL catheter pack; Start 08/03/16 at 07:30; Stop 08/04/16 at 07:29; Status DC Sodium Chloride (Iv Sodium Chloride 0.9% 1000ml Bag) 1,000 ml @ 400 mls/hr Q2H30M PRN IV PATENCY; Start 08/03/16 at 07:26; Stop 08/03/16 at 19:25; Status DC Info 1 each 1 each PRN DAILY PRN MC SEE COMMENTS; Start 08/03/16 at 07:30; Status UNV Albumin Human 200 ml @ 200 mls/hr Q2HR IV Last administered on 08/03/16 10:00 ; Start 08/03/16 at 08:44; Stop 08/03/16 at 10:59; Status DC Sodium Chloride 160 meq/Sodium Acetate 60 meq/ Potassium Chloride 15 meq/ Potassium Acetate 30 meq/Magnesium Sulfate 25 meq/ Multivitamins/ Minerals 10 ml / Chromium/Copper/ Manganese/Seleni/ Zn 1 ml/Total Parenteral Nutrition/Amino Acids/Dextrose/ Fat Emulsion Intravenous 1,500 ml @ 62.5 mls/hr TPN CONT IV Last administered on 08/03/16 22:52; Start 08/03/16 at 22:00; Stop 08/04/16 at 21:59; Status DC Levofloxacin/ Dextrose 100 ml @ 100 mls/hr 1X ONCE IV Last administered on 10:50; Start 08/04/16 at 07:30; Stop 08/04/16 at 08:30; Status DC Daptomycin 450 mg/ Sodium Chloride 50 ml @ 100 mls/hr ONCE ONCE IV Last administered on 08/04/16 09:55; Start 08/04/16 at 08:00; Stop 08/04/16 at 08:30 ; Status DC Tigecycline/ Sodium Chloride (Tygacil/Iv Sodium Chloride 0.9% 50ml) 50 ml @ 100 mls/hr Q12HR IV Last administered on 08/09/16 07:20; Start 08/04/16 at 21: 00; Stop 08/09/16 at 09:42; Status DC Hydrocortisone Sodium Succinate 50 mg 50 mg Q8HRS IV Last administered on 05:39; Start 08/04/16 at 14:00; Stop 08/05/16 at 11:12; Status DC Furosemide 100 mg/ Sodium Chloride 100 ml @ 0 mls/hr CONT PRN IV SEE I/O RECORD Last administered on 08/09/16 06:43; Start 08/04/16 at 11:30; Stop 08/09 at 11:31; Status DC Sodium Chloride 160 meq/Sodium Acetate 60 meq/ Potassium Chloride 15 meq/ Potassium Acetate 30 meq/Magnesium Sulfate 25 meq/ Multivitamins/ Minerals 10 ml / Chromium/Copper/ Manganese/Seleni/ Zn 1 ml/Total Parenteral Nutrition/Amino Acids/Dextrose/ Fat Emulsion Intravenous 1,500 ml @ 62.5 mls/hr TPN CONT IV Last administered on 08/04/16 21:45; Start 08/04/16 at 22:00; Stop 08/06/16 at 08:48; Status DC Sodium Chloride 1,000 ml @ 1,000 mls/hr Q1H PRN IV hypotension; Start 08/04/16 at 12:00; Stop 08/04/16 at 17:59; Status DC Sodium Chloride (Iv Sodium Chloride 0.9% 1000ml Bag) 1,000 ml @ 400 mls/hr Q2H30M PRN IV PATENCY; Start 08/04/16 at 12:00; Stop 08/04/16 at 23:59; Status DC Info 1 each 1 each PRN DAILY PRN MC SEE COMMENTS; Start 08/04/16 at 16:30; Status UNV Levofloxacin/ Dextrose 100 ml @ 100 mls/hr 1X ONCE IV Last administered on 14:27; Start 08/05/16 at 14:00; Stop 08/05/16 at 14:59; Status DC Daptomycin/Sodium Chloride (Cubicin/Iv Sodium Chloride 0.9% 50ml) 50 ml @ 100 mls/hr 1X ONCE IV Last administered on 08/05/16 14:27; Start 08/05/16 at 14: 00; Stop 08/05/16 at 14:29; Status DC Heparin Sodium (Porcine) 10,000 unit STK-MED ONCE .ROUTE ; Start 08/05/16 at 09: 35; Stop 08/05/16 at 09:36; Status DC Lidocaine/Sodium Bicarbonate 20 ml 20 ml STK-MED ONCE IJ ; Start 08/05/16 at 09: 36; Stop 08/05/16 at 09:37; Status DC Heparin Sodium/ Sodium Chloride 500 ml @ As Directed STK-MED ONCE .ROUTE ; Start 08/05/16 at 09:36; Stop 08/05/16 at 09:37; Status DC Lidocaine/Sodium Bicarbonate (Buffered Lidocaine 1%) 2 ml 1X ONCE IJ Last administered on 08/05/16 10:04; Start 08/05/16 at 10:00; Stop 08/05/16 at 10:02 ; Status DC Heparin Sodium/ Sodium Chloride 60 unit 1X ONCE IV Last administered on 10:04; Start 08/05/16 at 10:00; Stop 08/05/16 at 10:02; Status DC Heparin Sodium (Porcine) 2,800 unit 1X ONCE INT CAT Last administered on 10:04; Start 08/05/16 at 10:00; Stop 08/05/16 at 10:02; Status DC Info (PHARMACY MONITORING -- do not chart) 1 each PRN DAILY PRN MC SEE COMMENTS ; Start 08/05/16 at 10:30; Stop 08/05/16 at 10:30; Status DC Info (PHARMACY MONITORING -- do not chart) 1 each PRN DAILY PRN MC SEE COMMENTS ; Start 08/05/16 at 10:30; Stop 08/05/16 at 10:30; Status DC Hydrocortisone Sodium Succinate 50 mg 50 mg BID IV Last administered on 07:49; Start 08/05/16 at 21:00; Stop 08/07/16 at 10:23; Status DC Sodium Chloride 160 meq/Sodium Acetate 60 meq/ Potassium Chloride 15 meq/ Potassium Acetate 30 meq/Magnesium Sulfate 25 meq/ Multivitamins/ Minerals 10 ml / Chromium/Copper/ Manganese/Seleni/ Zn 1 ml/Total Parenteral Nutrition/Amino Acids/Dextrose/ Fat Emulsion Intravenous 1,500 ml @ 62.5 mls/hr TPN CONT IV Last administered on 08/05/16 22:04; Start 08/05/16 at 22:00; Stop 08/06/16 at 21:59; Status DC Daptomycin 500 mg/ Sodium Chloride 50 ml @ 100 mls/hr Q24H IV Last administered on 08/11/16 14:20; Start 08/06/16 at 14:00 Sodium Chloride (Iv Sodium Chloride 0.9% 1000ml Bag) 1,000 ml @ 1,000 mls/hr Q1H PRN IV hypotension; Start 08/06/16 at 08:21; Stop 08/06/16 at 14:20; Status DC Diphenhydramine HCl (Benadryl) 25 mg 1X PRN PRN IV ITCHING; Start 08/06/16 at 08:30; Stop 08/07/16 at 08:29; Status DC Diphenhydramine HCl (Benadryl) 25 mg 1X PRN PRN IV ITCHING; Start 08/06/16 at 08:30; Stop 08/07/16 at 08:29; Status DC Sodium Chloride (Normal Saline Flush) 10 ml 1X PRN PRN IV AP catheter pack; Start 08/06/16 at 08:30; Stop 08/07/16 at 08:29; Status DC Sodium Chloride 10 ml 10 ml 1X PRN PRN IV SET UP OPERATOR TOOL catheter pack; Start 08/06/16 at 08:30; Stop 08/07/16 at 08:29; Status DC Sodium Chloride (Iv Sodium Chloride 0.9% 1000ml Bag) 1,000 ml @ 400 mls/hr Q2H30M PRN IV PATENCY; Start 08/06/16 at 08:21; Stop 08/06/16 at 20:20; Status DC Info 1 each 1 each PRN DAILY PRN MC SEE COMMENTS; Start 08/06/16 at 08:30; Status UNV Albumin Human 200 ml @ 200 mls/hr 1X STAT IV Last administered on 08/06/16 10:09; Start 08/06/16 at 09:52; Stop 08/06/16 at 10:51; Status DC Sodium Chloride/ Sodium Acetate/ Potassium Chloride/ Potassium Acetate/ Magnesium Sulfate/ Multivitamins/ Minerals/Chromium/ Copper/Manganese/ Seleni/Zn /Total Parenteral Nutrition/Amino Acids/Dextrose/ Fat Emulsion Intravenous ( Sodium Chloride/ Infuvite Adult/ Multitrace-5 Conc/ Tpn - Tpn Flu... 1,500 ml @ 62.5 mls/hr TPN CONT IV Last administered on 08/06/16 21:57; Start at 22:00; Stop 08/07/16 at 21:59; Status DC Darbepoetin Sarbjit 60 mcg 60 mcg [id number] SQ ; Start 08/07/16 at 21:00; Status UNV Potassium Chloride (KCl Premix 20meq) 50 ml @ 50 mls/hr Q1H IV Last administered on 08/07/16 10:46; Start 08/07/16 at 08:00; Stop 08/07/16 at 09:59 ; Status DC Hydrocortisone Sodium Succinate 25 mg 25 mg BID IV ; Start 08/07/16 at 21:00; Stop 08/07/16 at 21:00; Status DC Sodium Chloride (Iv Sodium Chloride 0.9% 1000ml Bag) 1,000 ml @ 1,000 mls/hr Q1H PRN IV hypotension; Start 08/07/16 at 12:08; Stop 08/07/16 at 18:07; Status DC Diphenhydramine HCl (Benadryl) 25 mg 1X PRN PRN IV ITCHING; Start 08/07/16 at 12:15; Stop 08/08/16 at 12:14; Status DC Diphenhydramine HCl (Benadryl) 25 mg 1X PRN PRN IV ITCHING; Start 08/07/16 at 12:15; Stop 08/08/16 at 12:14; Status DC Sodium Chloride (Normal Saline Flush) 10 ml 1X PRN PRN IV AP catheter pack; Start 08/07/16 at 12:15; Stop 08/08/16 at 12:14; Status DC Sodium Chloride (Normal Saline Flush) 10 ml 1X PRN PRN IV SET UP OPERATOR TOOL catheter pack; Start 08/07/16 at 12:15; Stop 08/08/16 at 12:14; Status DC Info (PHARMACY MONITORING -- do not chart) 1 each PRN DAILY PRN MC SEE COMMENTS ; Start 08/07/16 at 12:15; Status UNV Info 1 each 1 each PRN DAILY PRN MC SEE COMMENTS; Start 08/07/16 at 12:15; Status UNV Sodium Chloride 160 meq/Sodium Acetate 60 meq/ Potassium Chloride 55 meq/ Potassium Acetate 30 meq/Magnesium Sulfate 25 meq/ Multivitamins/ Minerals 10 ml / Chromium/Copper/ Manganese/Seleni/ Zn 1 ml/Total Parenteral Nutrition/Amino Acids/Dextrose/ Fat Emulsion Intravenous 1,500 ml @ 62.5 mls/hr TPN CONT IV Last administered on 08/07/16 21:41; Start 08/07/16 at 22:00; Stop 08/08/16 at 21:59; Status DC Potassium Chloride (KCl Premix 20meq) 50 ml @ 50 mls/hr 1X ONCE IV Last administered on 08/08/16 09:04; Start 08/08/16 at 10:00; Stop 08/08/16 at 10:59 ; Status DC Fentanyl Citrate 25 mcg 25 mcg PRN Q4HRS PRN IV PAIN Last administered on 06:34; Start 08/08/16 at 11:00 Potassium Chloride 50 ml @ 50 mls/hr 1X ONCE IV Last administered on 15:33; Start 08/08/16 at 11:15; Stop 08/08/16 at 12:14; Status DC Sodium Chloride 140 meq/Sodium Acetate 60 meq/ Potassium Chloride 70 meq/ Potassium Acetate 30 meq/Magnesium Sulfate 25 meq/ Multivitamins/ Minerals 10 ml / Chromium/Copper/ Manganese/Seleni/ Zn 1 ml/Total Parenteral Nutrition/Amino Acids/Dextrose/ Fat Emulsion Intravenous 1,500 ml @ 62.5 mls/hr TPN CONT IV Last administered on 08/08/16 21:42; Start 08/08/16 at 22:00; Stop 08/09/16 at 11:30; Status DC Tigecycline 50 mg/ Sodium Chloride 50 ml @ 100 mls/hr Q12HR IV ; Start at 09:42; Stop 08/09/16 at 10:03; Status DC Dextrose 1,000 ml @ 80 mls/hr [id number] IV ; Start 08/09/16 at 11:45; Stop at 11:57; Status DC Dextrose/Sodium Chloride 1,000 ml @ 50 mls/hr Q20H IV Last administered on 12:22; Start 08/09/16 at 12:00; Stop 08/10/16 at 10:09; Status DC Sodium Chloride 10 meq/Sodium Acetate 10 meq/ Potassium Chloride 40 meq/ Potassium Acetate 10 meq/Magnesium Sulfate 15 meq/ Multivitamins/ Minerals 10 ml / Chromium/Copper/ Manganese/Seleni/ Zn 1 ml/Total Parenteral Nutrition/Amino Acids/Dextrose/ Fat Emulsion Intravenous 1,512 ml @ 63 mls/hr TPN CONT IV Last administered on 08/10/16 10:44; Start 08/09/16 at 22:00; Stop 08/10/16 at 21:59; Status DC Dextrose 1,000 ml @ 100 mls/hr Q10H IV Last administered on 08/10/16 10:37; Start 08/10/16 at 10:15; Stop 08/10/16 at 13:48; Status DC Potassium Chloride 50 ml @ 50 mls/hr 1X ONCE IV Last administered on 10:39; Start 08/10/16 at 10:30; Stop 08/10/16 at 11:29; Status DC Dextrose 1,000 ml @ 100 mls/hr Q10H IV Last administered on 08/11/16 21:31; Start 08/10/16 at 14:00 Potassium Chloride 40 meq/ Potassium Acetate 10 meq/Magnesium Sulfate 15 meq/ Multivitamins/ Minerals 10 ml/ Chromium/Copper/ Manganese/Seleni/ Zn 1 ml/Total Parenteral Nutrition/Amino Acids/Dextrose/ Fat Emulsion Intravenous 1,512 ml @ 63 mls/hr TPN CONT IV Last administered on 08/10/16 22:13; Start 08/10/16 at 22:00; Stop 08/11/16 at 21:59; Status DC Potassium Chloride 50 ml @ 50 mls/hr Q1H IV Last administered on 08/11/16 13: 05; Start 08/11/16 at 11:00; Stop 08/11/16 at 12:59; Status DC Potassium Chloride/ Potassium Acetate/ Magnesium Sulfate/ Multivitamins/ Minerals/Chromium/ Copper/Manganese/ Seleni/Zn/Total Parenteral Nutrition/Amino Acids/Dextrose/ Fat Emulsion Intravenous (Infuvite Adult/ Multitrace-5 Conc/ Tpn - Tpn Fluid/ Dextrose 70%-Water Iv Soln/ Intralipid 20%) 1,512 ml @ 63 mls/ hr TPN CONT IV Last administered on 08/11/16 21:31; Start 08/11/16 at 22:00; Stop 08/12/16 at 21:59 Active Scripts Active Dilaudid (Hydromorphone Hcl) 4 Mg Tablet 4 Mg PO Q6HRS Phenazopyridine Hcl 200 Mg Tablet 200 Mg PO PRN TID PRN FENTANYL 50mcg/hr (Fentanyl) 1 Each Patch.td72 1 Patch TD Q3DAYS Anaspaz (Hyoscyamine Sulfate) 0.125 Mg Tab.rapdis 0.125 Mg PO Q6HRS PRN Cefpodoxime Proxetil 200 Mg Tablet 200 Mg PO BID Sertraline Hcl 50 Mg Tablet 100 Mg PO DAILY 30 Days Protonix (Pantoprazole Sodium) 40 Mg Tablet.dr 1 Tab PO DAILY Zinc Oxide 56.7 Gm Oint...g. 1 Sang TP BID Lidocaine 35.44 Gm Oint...g. 1 Sang TP BID Ondansetron Odt (Ondansetron) 4 Mg Tab.rapdis 8 Mg PO PRN Q8HRS PRN Gas-X (Simethicone) 80 Mg Tab.chew 80 Mg PO PRN QID PRN Reported Lorazepam 0.5 Mg Tablet 0.5 Mg PO PRN BID PRN Vitals/I & O Vital Sign - Last 24 Hours 08/11/16 08/11/16 08/11/16 08/11/16 11:00 11:41 12:00 12:00 Temp 97.3 97.3 Pulse 74 94 Resp B/P 110/54 109/50 Pulse Ox 100 100 100 O2 Delivery Nasal Cannula Nasal Cannula Nasal Cannula Nasal Cannula O2 Flow Rate 2.0 2.0 2.0 2.0 08/11/16 08/11/16 08/11/16 08/11/16 13:00 14:00 15:00 16:00 Pulse 92 83 78 Resp B/P 118/50 134/67 86/45 Pulse Ox 100 98 100 O2 Delivery Nasal Cannula Room Air Room Air Nasal Cannula O2 Flow Rate 2.0 2.0 08/11/16 08/11/16 08/11/16 08/11/16 16:00 17:00 18:00 19:00 Temp 98.1 98.1 98.1 98.1 Pulse 75 74 76 80 Resp B/P 118/59 139/68 147/88 145/78 Pulse Ox 100 100 100 100 O2 Delivery Room Air Room Air Room Air Room Air 08/11/16 08/11/16 08/11/16 08/11/16 19:22 20:00 20:00 21:00 Temp 98.1 98.5 98.1 98.5 Pulse 80 81 Resp 22 B/P 127/64 119/63 Pulse Ox 100 100 99 O2 Delivery Room Air Room Air Room Air Room Air 08/11/16 08/11/16 08/11/16 08/12/16 22:03 22:07 23:08 00:21 Temp 98.5 98.5 Pulse 80 68 Resp 16 B/P 167/65 118/60 Pulse Ox 99 99 100 O2 Delivery Room Air Room Air Room Air Room Air 08/12/16 08/12/16 08/12/16 08/12/16 00:24 00:37 01:05 01:07 Pulse 74 71 Resp 19 20 18 19 B/P 149/77 158/89 Pulse Ox 100 100 100 O2 Delivery Room Air Room Air Room Air 08/12/16 08/12/16 08/12/1617 02:00 03:00 04:00 04:00 Temp 97.9 98.0 97.9 98.0 Pulse 69 73 61 Resp 23 B/P 123/56 154/73 142/82 Pulse Ox 100 99 99 O2 Delivery Room Air Room Air Room Air Room Air 08/12/16 08/12/16 08/12/16 08/12/16 05:00 06:00 06:34 07:00 Temp 98.0 98.0 Pulse 70 70 80 Resp 20 23 B/P 151/73 146/70 147/74 Pulse Ox 100 100 100 100 O2 Delivery Room Air Room Air Room Air Room Air 08/12/16 08/12/16 08/12/16 08/12/16 07:04 08:00 08:00 09:00 Pulse 65 84 Resp B/P 132/65 142/73 Pulse Ox 100 100 100 O2 Delivery Room Air Room Air Room Air Room Air O2 Flow Rate 2.0 08/12/16 09:30 O2 Delivery Room Air Intake and Output 08/11/16 08/11/16 08/12/16 15:00 23:00 07:00 Intake Total 50 ml 1227 ml 0 ml Output Total 495 ml 1050 ml 1630 ml Balance -445 ml 177 ml -1630 ml BENITA LUTZ MD Aug 12, 2016 10:08
[2016-08-12] MEDS: TPN PER PHARMACY MC PRN (10:49)
--- NOTE | 2016-08-12 14:03 | PDOC ---
PROGRESS NOTES Subjective Subjective Patient received Fentanyl today and has some confusion. Remains on TPN. Objective Objective Vital Signs Date Time Temp Pulse Resp B/P Pulse Ox O2 Delivery O2 Flow Rate FiO2 08/12/16 09:30 Room Air 08/12/16 09:00 84 24 142/73 100 08/12/16 07:04 2.0 08/12/16 06:00 98.0 98.0 Intake and Output 08/12/16 07:00 Intake Total 1277 ml Output Total 3175 ml Balance -1898 ml Intake Oral 0 ml IV Total 1277 ml Output Urine Total 1575 ml Drainage Total 1600 ml Physical Exam Physical Exam Cardiac exam unchanged. Lungs clear to auscultation. Generalized edema present but improving. Assessment Assessment Patients cardiac status remains unchanged. Patient is critically ill recovering from [facility] secondary to septic shock due to UTI and fungemia. Problems Medical Problems: (1) Abdominal pain Status: Acute (2) Enterocutaneous fistula Status: Acute (3) Sepsis Status: Acute (4) Urinary tract infection Status: Acute (5) UTI (urinary tract infection) Status: Acute Plan Plan of Care Agree with current plan of care, will continue to monitor closely. Comment Review of Relevant I have reviewed the following items lucila (where applicable) has been applied. Labs Laboratory Tests Test 08/10/16 15:01 08/10/16 15:18 08/10/16 18:30 08/11/16 00:54 O2 Saturation 98% (92-99) Arterial Blood pH 7.49 (7.35-7.45) Arterial Blood pCO2 at Patient Temp 35mmHg (35-46) Arterial Blood pO2 at Patient Temp 121mmHg (65-108) Arterial Blood HCO3 26mmol/L (21-28) Arterial Blood Base Excess 3mmol/L (-3-3) FiO2 30 Glucose (Fingerstick) 158mg/dL (70-99) 149mg/dL (70-99) 138mg/dL (70-99) Test 08/11/16 03:28 08/11/16 03:37 08/11/16 05:30 08/11/16 05:34 O2 Saturation 99% (92-99) Arterial Blood pH 7.48 (7.35-7.45) Arterial Blood pCO2 at Patient Temp 39mmHg (35-46) Arterial Blood pO2 at Patient Temp 161mmHg (65-108) Arterial Blood HCO3 29mmol/L (21-28) Arterial Blood Base Excess 5mmol/L (-3-3) FiO2 28 Glucose (Fingerstick) 119mg/dL (70-99) 135mg/dL (70-99) White Blood Count 5.9x10^3/uL (4.0-11.0) Red Blood Count 2.75x10^6/uL (3.50-5.40) Hemoglobin 7.3g/dL (12.0-15.5) Hematocrit 23.3% (36.0-47.0) Mean Corpuscular Volume 85fL (79-100) Mean Corpuscular Hemoglobin 26pg (25-35) Mean Corpuscular Hemoglobin Concent 31g/dL (31-37) Red Cell Distribution Width 23.5% (11.5-14.5) Platelet Count 75x10^3/uL (140-400) Neutrophils (%) (Auto) 69% (31-73) Lymphocytes (%) (Auto) 17% (24-48) Monocytes (%) (Auto) 10% (0-9) Eosinophils (%) (Auto) 3% (0-3) Basophils (%) (Auto) 1% (0-3) Neutrophils # (Auto) 4.1x10^3uL (1.8-7.7) Lymphocytes # (Auto) 1.0x10^3/uL (1.0-4.8) Monocytes # (Auto) 0.6x10^3/uL (0.0-1.1) Eosinophils # (Auto) 0.2x10^3/uL (0.0-0.7) Basophils # (Auto) 0.0x10^3/uL (0.0-0.2) Sodium Level 156mmol/L (136-145) Potassium Level 3.2mmol/L (3.5-5.1) Chloride Level 116mmol/L (98-107) Carbon Dioxide Level 31mmol/L (21-32) Anion Gap 9 (6-14) Blood Urea Nitrogen 51mg/dL (7-20) Creatinine 0.8mg/dL (0.6-1.0) Estimated GFR (Cockcroft-Gault) 88.2 Glucose Level 147mg/dL (70-99) Calcium Level 9.2mg/dL (8.5-10.1) Total Bilirubin 4.8mg/dL (0.2-1.0) Direct Bilirubin 2.7mg/dL (0.0-0.2) Aspartate Amino Transf (AST/SGOT) 32U/L (15-37) Alanine Aminotransferase (ALT/SGPT) 36U/L (14-59) Alkaline Phosphatase 187U/L (46-116) Creatine Kinase 35U/L (26-192) Total Protein 5.9g/dL (6.4-8.2) Albumin 2.5g/dL (3.4-5.0) Test 08/11/16 11:43 08/11/16 18:08 08/12/16 00:10 08/12/16 05:50 Glucose (Fingerstick) 158mg/dL (70-99) 174mg/dL (70-99) 164mg/dL (70-99) 133mg/dL (70-99) White Blood Count 5.0x10^3/uL (4.0-11.0) Red Blood Count 3.15x10^6/uL (3.50-5.40) Hemoglobin 8.5g/dL (12.0-15.5) Hematocrit 26.7% (36.0-47.0) Mean Corpuscular Volume 85fL (79-100) Mean Corpuscular Hemoglobin 27pg (25-35) Mean Corpuscular Hemoglobin Concent 32g/dL (31-37) Red Cell Distribution Width 24.7% (11.5-14.5) Platelet Count 137x10^3/uL (140-400) Neutrophils (%) (Auto) 55% (31-73) Lymphocytes (%) (Auto) 28% (24-48) Monocytes (%) (Auto) 11% (0-9) Eosinophils (%) (Auto) 5% (0-3) Basophils (%) (Auto) 1% (0-3) Neutrophils # (Auto) 2.8x10^3uL (1.8-7.7) Lymphocytes # (Auto) 1.4x10^3/uL (1.0-4.8) Monocytes # (Auto) 0.6x10^3/uL (0.0-1.1) Eosinophils # (Auto) 0.2x10^3/uL (0.0-0.7) Basophils # (Auto) 0.1x10^3/uL (0.0-0.2) Sodium Level 145mmol/L (136-145) Potassium Level 3.6mmol/L (3.5-5.1) Chloride Level 107mmol/L (98-107) Carbon Dioxide Level 28mmol/L (21-32) Anion Gap 10 (6-14) Blood Urea Nitrogen 33mg/dL (7-20) Creatinine 0.7mg/dL (0.6-1.0) Estimated GFR (Cockcroft-Gault) 102.9 Glucose Level 143mg/dL (70-99) Calcium Level 9.2mg/dL (8.5-10.1) Laboratory Tests Test 08/11/16 18:08 08/12/16 00:10 08/12/16 05:50 Glucose (Fingerstick) 174mg/dL (70-99) 164mg/dL (70-99) 133mg/dL (70-99) White Blood Count 5.0x10^3/uL (4.0-11.0) Red Blood Count 3.15x10^6/uL (3.50-5.40) Hemoglobin 8.5g/dL (12.0-15.5) Hematocrit 26.7% (36.0-47.0) Mean Corpuscular Volume 85fL (79-100) Mean Corpuscular Hemoglobin 27pg (25-35) Mean Corpuscular Hemoglobin Concent 32g/dL (31-37) Red Cell Distribution Width 24.7% (11.5-14.5) Platelet Count 137x10^3/uL (140-400) Neutrophils (%) (Auto) 55% (31-73) Lymphocytes (%) (Auto) 28% (24-48) Monocytes (%) (Auto) 11% (0-9) Eosinophils (%) (Auto) 5% (0-3) Basophils (%) (Auto) 1% (0-3) Neutrophils # (Auto) 2.8x10^3uL (1.8-7.7) Lymphocytes # (Auto) 1.4x10^3/uL (1.0-4.8) Monocytes # (Auto) 0.6x10^3/uL (0.0-1.1) Eosinophils # (Auto) 0.2x10^3/uL (0.0-0.7) Basophils # (Auto) 0.1x10^3/uL (0.0-0.2) Sodium Level 145mmol/L (136-145) Potassium Level 3.6mmol/L (3.5-5.1) Chloride Level 107mmol/L (98-107) Carbon Dioxide Level 28mmol/L (21-32) Anion Gap 10 (6-14) Blood Urea Nitrogen 33mg/dL (7-20) Creatinine 0.7mg/dL (0.6-1.0) Estimated GFR (Cockcroft-Gault) 102.9 Glucose Level 143mg/dL (70-99) Calcium Level 9.2mg/dL (8.5-10.1) Microbiology 08/01/16 Blood Culture - Final, Complete NO GROWTH AFTER 5 DAYS 07/15/16 Urine Culture - Final, Complete 07/15/16 Urine Culture Result 1 (ROYA) - Final, Complete 07/15/16 Urine Culture Result 2 (ROYA) - Final, Complete 07/15/16 Antimicrobic Susceptibility - Final, Complete 07/29/16 Aerobic Culture - Final, Complete 07/29/16 Aerobic Culture Result 1 (ROYA) - Final, Complete Medications Current Medications Piperacillin Sod/ Tazobactam Sod/ Sodium Chloride (Zosyn/Iv Sodium Chloride 0.9 % 100ml) 100 ml @ 200 mls/hr 1X ONCE IV Last administered on 07/15/16 22:56; Start 07/15/16 at 22:00; Stop 07/15/16 at 22:29; Status DC Fentanyl Citrate 50 mcg 50 mcg PRN Q15MIN PRN IV PAIN GREATER THAN 3/10 Last administered on 07/16/16 00:30; Start 07/15/16 at 21:45; Stop 07/16/16 at 02:00; Status DC Sodium Chloride 1,000 ml @ 1,000 mls/hr 1X ONCE IV Last administered on 21:59; Start 07/15/16 at 22:00; Stop 07/15/16 at 22:59; Status DC Sodium Chloride (Iv Sodium Chloride 0.9% 500ml Bag) 500 ml @ 500 mls/hr 1X ONCE IV Last administered on 07/15/16 22:00; Start 07/15/16 at 22:00; Stop at 22:59; Status DC Ondansetron HCl (Zofran) 4 mg PRN Q8HRS PRN IV NAUSEA/VOMITING; Start 07/15/16 at 23:30; Stop 07/16/16 at 08:52; Status DC Fentanyl Citrate 50 mcg 50 mcg PRN Q2HR PRN IV SEVERE PAIN Last administered on 07/16/16 08:10; Start 07/15/16 at 23:30; Stop 07/16/16 at 08:52; Status DC Sodium Chloride (Iv Sodium Chloride 0.9% 1000ml Bag) 1,000 ml @ 150 mls/hr Q6H40M IV Last administered on 07/15/16 02:00; Start 07/15/16 at 23:45; Stop 07/16/16 at 08:52; Status DC Acetaminophen (Tylenol) 650 mg PRN Q4HRS PRN PO FEVER; Start 07/15/16 at 23:30; Stop 07/16/16 at 23:29; Status DC Info (Do NOT chart on this placeholder) 1 each PRN DAILY PRN MC NEEDS VERIFICATION; Start 07/16/16 at 03:00; Status Cancel Acetaminophen 650 mg 650 mg PRN Q4HRS PRN PO MILD PAIN / TEMP Last administered on 07/28/16 07:42; Start 07/16/16 at 08:45; Stop 07/29/16 at 08:33 ; Status DC Piperacillin Sod/ Tazobactam Sod 3.375 gm/Sodium Chloride 50 ml @ 100 mls/hr Q6HRS IV Last administered on 07/18/16 05:50; Start 07/16/16 at 10:00; Stop 07/18 at 13:28; Status DC Linezolid (Zyvox Premix) 300 ml @ 300 mls/hr Q12HR IV Last administered on 07/18 08:34; Start 07/16/16 at 10:00; Stop 07/18/16 at 13:28; Status DC Hydromorphone HCl (Dilaudid) 2 mg PRN Q4HRS PRN IV MODERATE PAIN Last administered on 08/09/16 06:39; Start 07/16/16 at 08:45; Stop 08/09/16 at 17:35 ; Status DC Hydromorphone HCl (Dilaudid) 4 mg PRN Q4HRS PRN IV SEVERE PAIN Last administered on 07/30/16 09:23; Start 07/16/16 at 08:45; Stop 07/31/16 at 15:01 ; Status DC Pantoprazole Sodium (Protonix) 40 mg DAILYAC PO Last administered on 07/27/16 11:11; Start 07/16/16 at 09:30; Stop 07/29/16 at 08:44; Status DC Hyoscyamine (Anaspaz) 0.125 mg Q6HRS PO Last administered on 07/20/16 05:20; Start 07/16/16 at 12:00; Stop 07/20/16 at 08:58; Status DC Phenazopyridine HCl (Pyridium) 200 mg TID PO Last administered on 07/20/16 08: 25; Start 07/16/16 at 09:30; Stop 07/20/16 at 08:58; Status DC Lorazepam (Ativan) 0.5 mg PRN BID PRN PO ANXIETY / AGITATION Last administered on 07/29/16 02:16; Start 07/16/16 at 08:45; Stop 07/31/16 at 15:01; Status DC Simethicone (Gas-X) 80 mg PRN Q4HRS PRN PO GAS / BLOATING Last administered on 07/24/16 22:30; Start 07/16/16 at 08:45; Stop 07/31/16 at 15:01; Status DC Zolpidem Tartrate 5 mg 5 mg PRN QHS PRN PO INSOMNIA Last administered on 23:14; Start 07/16/16 at 08:45; Stop 07/31/16 at 15:01; Status DC Potassium Chloride/Dextrose/ Sod Cl 1,000 ml @ 80 mls/hr [id number] IV Last administered on 07/16/16 10:54; Start 07/16/16 at 09:30; Stop 07/16/16 at 21:59; Status DC Fluconazole/ Sodium Chloride (Diflucan 200mg/ 100ml Premix) 100 ml @ 100 mls/ hr Q24H IV Last administered on 07/18/16 11:43; Start 07/16/16 at 11:00; Stop at 13:28; Status DC Info 1 each 1 each PRN DAILY PRN MC SEE COMMENTS Last administered on 12:41; Start 07/16/16 at 10:00; Stop 08/01/16 at 11:24; Status DC Sodium Chloride 220 meq/Sodium Acetate 90 meq/ Potassium Chloride 50 meq/ Potassium Acetate 15 meq/Potassium Phosphate 10 mmol/ Magnesium Sulfate 50 meq/ Calcium Gluconate 6 meq/ Multivitamins/ Minerals 10 ml/ Chromium/Copper/ Manganese/Seleni/ Zn 1 ml/Total Parenteral Nutrition/Amino Acids/Dextro... 1, 920 ml @ 80 mls/hr TPN CONT IV ; Start 07/16/16 at 22:00; Stop 07/16/16 at 22:00 ; Status DC Sodium Chloride/ Sodium Acetate/ Potassium Chloride/ Potassium Acetate/ Potassium Phosphate/ Magnesium Sulfate/ Calcium Gluconate/ Multivitamins/ Minerals/Chromium/ Copper/Manganese/ Seleni/Zn/Total Parenteral Nutrition/Amino Acids/Dextrose/ Fat Emulsion Intravenous (Sodium Chlori... 1,820 ml @ 75.833 mls/ hr TPN CONT IV Last administered on 07/16/16 21:03; Start 07/16/16 at 22: 00; Stop 07/17/16 at 21:59; Status DC Ondansetron HCl (Zofran) 4 mg PRN Q6HRS PRN IV NAUSEA/VOMITING Last administered on 07/21/16 08:48; Start 07/16/16 at 17:15; Stop 07/31/16 at 15:01; Status DC Diphenhydramine HCl (Benadryl) 25 mg PRN Q6HRS PRN PO ITCHING Last administered on 07/25/16 23:38; Start 07/16/16 at 17:45; Stop 07/31/16 at 15:01 ; Status DC Lidocaine (Xylocaine) 1 sang BID TP Last administered on 08/12/16 08:29; Start 07/17/16 at 09:00 Zinc Oxide 1 sang 1 sang BID TP Last administered on 08/12/16 08:29; Start at 09:30 Sodium Chloride/ Sodium Acetate/ Potassium Chloride/ Potassium Acetate/ Potassium Phosphate/ Magnesium Sulfate/ Calcium Gluconate/ Multivitamins/ Minerals/Chromium/ Copper/Manganese/ Seleni/Zn/Total Parenteral Nutrition/Amino Acids/Dextrose/ Fat Emulsion Intravenous (Sodium Chlori... 1,920 ml @ 80 mls/ hr TPN CONT IV Last administered on 07/17/16 22:13; Start 07/17/16 at 22:00; Stop 07/18/16 at 21:59; Status DC Furosemide 40 mg 40 mg 1X ONCE IVP Last administered on 07/18/16 11:43; Start 07/18/16 at 11:00; Stop 07/18/16 at 11:07; Status DC Sodium Chloride 220 meq/Sodium Acetate 90 meq/ Potassium Chloride 50 meq/ Potassium Acetate 15 meq/Potassium Phosphate 10 mmol/ Magnesium Sulfate 50 meq/ Calcium Gluconate 3 meq/ Multivitamins/ Minerals 10 ml/ Chromium/Copper/ Manganese/Seleni/ Zn 1 ml/Total Parenteral Nutrition/Amino Acids/Dextro... 1, 920 ml @ 80 mls/hr TPN CONT IV Last administered on 07/19/16 00:03; Start 07/18/16 at 22:00; Stop 07/19/16 at 21:59; Status DC Meropenem 1 gm/ Sodium Chloride 100 ml @ 200 mls/hr Q8HRS IV Last administered on 07/20/16 05:21; Start 07/18/16 at 14:00; Stop 07/20/16 at 11:25; Status DC Micafungin Sodium 100 mg/Dextrose 100 ml @ 100 mls/hr Q24H IV Last administered on 07/19/16 15:05; Start 07/18/16 at 14:00; Stop 07/20/16 at 11:25; Status DC Daptomycin/Sodium Chloride (Cubicin/Iv Sodium Chloride 0.9% 50ml) 50 ml @ 100 mls/hr Q24H IV Last administered on 07/19/16 16:56; Start 07/18/16 at 15:00; Stop 07/20/16 at 11:25; Status DC Alteplase, Recombinant (Cathflo) 2 mg 1X ONCE INT CAT Last administered on 07/19 06:24; Start 07/19/16 at 07:00; Stop 07/19/16 at 07:01; Status DC Gentamicin Sulfate 1 each 1 each PRN DAILY PRN MC SEE COMMENTS Last administered on 07/25/16 15:31; Start 07/19/16 at 12:15; Stop 07/25/16 at 16:14 ; Status DC Gentamicin Sulfate/Sodium Chloride (Iv Sodium Chloride 0.9% 100ml) 106.75 ml @ 106.75 mls/hr Q24H IV Last administered on 07/25/16 15:31; Start 07/19/16 at 13 :00; Stop 07/25/16 at 16:12; Status DC Gentamicin Sulfate 1 each 1 each 1X ONCE MC Last administered on 07/19/16 23: 00; Start 07/19/16 at 23:00; Stop 07/19/16 at 23:01; Status DC Sodium Chloride/ Sodium Acetate/ Potassium Chloride/ Potassium Acetate/ Potassium Phosphate/ Magnesium Sulfate/ Calcium Gluconate/ Multivitamins/ Minerals/Chromium/ Copper/Manganese/ Seleni/Zn/Total Parenteral Nutrition/Amino Acids/Dextrose/ Fat Emulsion Intravenous (Sodium Chlori... 1,920 ml @ 80 mls/ hr TPN CONT IV Last administered on 07/19/16 20:51; Start 07/19/16 at 22:00; Stop 07/20/16 at 21:59; Status DC Hyoscyamine (Anaspaz) 0.125 mg PRN Q6HRS PRN PO BLADDER SPASM; Start 07/20/16 at 09:00; Stop 07/31/16 at 15:01; Status DC Phenazopyridine HCl 200 mg 200 mg PRN TID PRN PO BLADDER SPASM Last administered on 07/21/16 20:14; Start 07/20/16 at 09:00; Stop 07/31/16 at 15:01; Status DC Linezolid 300 ml @ 300 mls/hr Q12HR IV Last administered on 07/25/16 09:02; Start 07/20/16 at 12:00; Stop 07/25/16 at 16:12; Status DC Sodium Chloride 220 meq/Sodium Acetate 90 meq/ Potassium Chloride 50 meq/ Potassium Acetate 15 meq/Potassium Phosphate 10 mmol/ Magnesium Sulfate 50 meq/ Calcium Gluconate 3 meq/ Multivitamins/ Minerals 10 ml/ Chromium/Copper/ Manganese/Seleni/ Zn 1 ml/Total Parenteral Nutrition/Amino Acids/Dextro... 1, 920 ml @ 80 mls/hr TPN CONT IV Last administered on 07/20/16 21:30; Start 07/20/16 at 22:00; Stop 07/21/16 at 21:59; Status DC Sodium Chloride/ Sodium Acetate/ Potassium Chloride/ Potassium Acetate/ Potassium Phosphate/ Magnesium Sulfate/ Multivitamins/ Minerals/Chromium/ Copper /Manganese/ Seleni/Zn/Total Parenteral Nutrition/Amino Acids/Dextrose/ Fat Emulsion Intravenous (Sodium Chloride/ Potass... 1,920 ml @ 80 mls/hr TPN CONT IV Last administered on 07/21/16 22:05; Start 07/21/16 at 22:00; Stop at 21:59; Status DC Alteplase, Recombinant 2 mg 2 mg PRN DAILY PRN INT CAT INFLAMMATION Last administered on 07/27/16 11:31; Start 07/21/16 at 15:00 Sodium Chloride 220 meq/Sodium Acetate 90 meq/ Potassium Chloride 50 meq/ Potassium Acetate 15 meq/Potassium Phosphate 10 mmol/ Magnesium Sulfate 50 meq/ Multivitamins/ Minerals 10 ml/ Chromium/Copper/ Manganese/Seleni/ Zn 1 ml/Total Parenteral Nutrition/Amino Acids/Dextrose/ Fat Emuls... 1,920 ml @ 80 mls/hr TPN CONT IV Last administered on 07/22/16 20:53; Start 07/22/16 at 22:00; Stop 07/23/16 at 21:59; Status DC Sodium Chloride/ Sodium Acetate/ Potassium Chloride/ Potassium Acetate/ Potassium Phosphate/ Magnesium Sulfate/ Multivitamins/ Minerals/Chromium/ Copper /Manganese/ Seleni/Zn/Total Parenteral Nutrition/Amino Acids/Dextrose/ Fat Emulsion Intravenous (Sodium Chloride/ Potass... 1,920 ml @ 80 mls/hr TPN CONT IV Last administered on 07/23/16 21:16; Start 07/23/16 at 22:00; Stop 07/24 at 21:59; Status DC Gentamicin Sulfate 1 each 1 each 1X ONCE MC ; Start 07/23/16 at 22:00; Stop 07/23 at 22:01; Status Cancel Sodium Chloride/ Sodium Acetate/ Potassium Chloride/ Potassium Acetate/ Potassium Phosphate/ Magnesium Sulfate/ Multivitamins/ Minerals/Chromium/ Copper /Manganese/ Seleni/Zn/Total Parenteral Nutrition/Amino Acids/Dextrose/ Fat Emulsion Intravenous (Sodium Chloride/ Potass... 1,920 ml @ 80 mls/hr TPN CONT IV Last administered on 07/24/16 21:15; Start 07/24/16 at 22:00; Stop 04/30 at 21:59; Status DC Gentamicin Sulfate 1 each 1X ONCE MC ; Start 07/25/16 at 12:30; Stop 07/25/16 at 12:31; Status Cancel Amlodipine Besylate 5 mg 5 mg DAILY PO Last administered on 07/27/16 11:12; Start 07/25/16 at 12:00; Stop 07/29/16 at 08:44; Status DC Sodium Chloride 220 meq/Sodium Acetate 90 meq/ Potassium Chloride 30 meq/ Potassium Acetate 15 meq/Potassium Phosphate 10 mmol/ Magnesium Sulfate 50 meq/ Multivitamins/ Minerals 10 ml/ Chromium/Copper/ Manganese/Seleni/ Zn 1 ml/Total Parenteral Nutrition/Amino Acids/Dextrose/ Fat Emuls... 1,920 ml @ 80 mls/hr TPN CONT IV Last administered on 07/25/16 22:25; Start 07/25/16 at 22:00; Stop 07/26/16 at 21:59; Status DC Sodium Chloride/ Sodium Acetate/ Potassium Chloride/ Potassium Acetate/ Potassium Phosphate/ Magnesium Sulfate/ Multivitamins/ Minerals/Chromium/ Copper /Manganese/ Seleni/Zn/Total Parenteral Nutrition/Amino Acids/Dextrose/ Fat Emulsion Intravenous (Sodium Chloride/ Potass... 1,920 ml @ 80 mls/hr TPN CONT IV Last administered on 07/26/16 23:16; Start 07/26/16 at 22:00; Stop at 21:59; Status DC Furosemide 20 mg 20 mg 1X ONCE IVP Last administered on 07/27/16 11:31; Start 07/27/16 at 09:00; Stop 07/27/16 at 09:01; Status DC Daptomycin 340 mg/ Sodium Chloride 50 ml @ 100 mls/hr Q24H IV Last administered on 07/29/16 15:05; Start 07/27/16 at 13:00; Stop 07/30/16 at 07:25 ; Status DC Piperacillin Sod/ Tazobactam Sod 3.375 gm/Sodium Chloride 50 ml @ 100 mls/hr Q6HRS IV Last administered on 07/30/16 05:30; Start 07/27/16 at 12:30; Stop at 07:25; Status DC Fluconazole/ Sodium Chloride 100 ml @ 100 mls/hr Q24H IV Last administered on 07/28/16 13:32; Start 07/27/16 at 13:00; Stop 07/29/16 at 00:53; Status DC Sodium Chloride 1,000 ml @ 1,000 mls/hr 1X ONCE IV Last administered on 12:34; Start 07/27/16 at 12:30; Stop 07/27/16 at 13:29; Status DC Sodium Chloride 220 meq/Sodium Acetate 90 meq/ Potassium Chloride 30 meq/ Potassium Acetate 15 meq/Potassium Phosphate 10 mmol/ Magnesium Sulfate 45 meq/ Multivitamins/ Minerals 10 ml/ Chromium/Copper/ Manganese/Seleni/ Zn 1 ml/Total Parenteral Nutrition/Amino Acids/Dextrose/ Fat Emuls... 1,920 ml @ 80 mls/hr TPN CONT IV Last administered on 07/27/16 22:38; Start 07/27/16 at 22:00; Stop 07/28/16 at 21:59; Status DC Sodium Chloride (Iv Sodium Chloride 0.9% 1000ml Bag) 1,000 ml @ 45 mls/hr [id number] IV Last administered on 07/28/16 03:24; Start 07/27/16 at 17:00; Stop 07/28/16 at 10:27; Status DC Acetaminophen 650 mg 650 mg PRN Q6HRS PRN [place] fever Last administered on 03:57; Start 07/27/16 at 16:30; Stop 07/29/16 at 08:33; Status DC Sodium Chloride 1,000 ml @ 427.5 mls/ hr Q2H21M IV Last administered on 19:30; Start 07/27/16 at 19:30; Stop 07/27/16 at 23:30; Status DC Sodium Chloride 220 meq/Sodium Acetate 90 meq/ Potassium Chloride 30 meq/ Potassium Acetate 15 meq/Potassium Phosphate 10 mmol/ Magnesium Sulfate 45 meq/ Multivitamins/ Minerals 10 ml/ Chromium/Copper/ Manganese/Seleni/ Zn 1 ml/Total Parenteral Nutrition/Amino Acids/Dextrose/ Fat Emuls... 1,920 ml @ 80 mls/hr TPN CONT IV Last administered on 07/28/16 21:43; Start 07/28/16 at 22:00; Stop 07/29/16 at 21:59; Status DC Micafungin Sodium/ Dextrose (Mycamine) 100 ml @ 100 mls/hr Q24H IV Last administered on 08/12/16 00:09; Start 07/29/16 at 01:00 Lorazepam (Ativan) 0.05 mg PRN Q4HRS PRN IV ANXIETY / AGITATION; Start at 02:30; Stop 07/29/16 at 02:48; Status DC Lorazepam (Ativan) 0.5 mg PRN Q4HRS PRN IV ANXIETY / AGITATION Last administered on 08/09/16 17:19; Start 07/29/16 at 03:00 Acetaminophen (Tylenol) 650 mg PRN Q4HRS PRN [place] MILD PAIN / TEMP; Start at 08:30 Ketorolac Tromethamine (Toradol) 30 mg PRN Q6HRS PRN IV PAIN/FEVER Last administered on 07/30/16 00:50; Start 07/29/16 at 08:30; Stop 07/30/16 at 13:01 ; Status DC Pantoprazole Sodium 40 mg 40 mg DAILYAC IVP Last administered on 08/12/16 08:29 ; Start 07/29/16 at 09:00 Sodium Chloride 1,000 ml @ 45 mls/hr [id number] IV Last administered on 09:17; Start 07/29/16 at 08:45; Stop 07/31/16 at 15:01; Status DC Sodium Chloride/ Sodium Acetate/ Potassium Chloride/ Potassium Acetate/ Potassium Phosphate/ Magnesium Sulfate/ Multivitamins/ Minerals/Chromium/ Copper /Manganese/ Seleni/Zn/Total Parenteral Nutrition/Amino Acids/Dextrose/ Fat Emulsion Intravenous (Sodium Chloride/ Potass... 1,920 ml @ 80 mls/hr TPN CONT IV Last administered on 07/29/16 22:06; Start 07/29/16 at 22:00; Stop at 21:59; Status DC Lidocaine/Sodium Bicarbonate 20 ml 20 ml STK-MED ONCE IJ ; Start 07/29/16 at 13: 13; Stop 07/29/16 at 13:14; Status DC Heparin Sodium/ Sodium Chloride 500 ml @ As Directed STK-MED ONCE .ROUTE ; Start 07/29/16 at 13:13; Stop 07/29/16 at 13:14; Status DC Lidocaine/ Epinephrine (Xylocaine 1%-Epi 1:100,000) 20 ml STK-MED ONCE .ROUTE ; Start 07/29/16 at 13:22; Stop 07/29/16 at 13:23; Status DC Midazolam HCl (Versed) 5 mg STK-MED ONCE .ROUTE ; Start 07/29/16 at 13:32; Stop 07/29/16 at 13:33; Status DC Fentanyl Citrate (Fentanyl 5ml Vial) 250 mcg STK-MED ONCE .ROUTE ; Start at 13:32; Stop 07/29/16 at 13:33; Status DC Heparin Sodium/ Sodium Chloride 1,000 unit 1X ONCE IART Last administered on 13:45; Start 07/29/16 at 13:45; Stop 07/29/16 at 13:48; Status DC Midazolam HCl (Versed) 5 mg 1X ONCE IV Last administered on 07/29/16 13:45; Start 07/29/16 at 13:45; Stop 07/29/16 at 13:48; Status DC Fentanyl Citrate (Fentanyl 5ml Vial) 250 mcg 1X ONCE IV Last administered on 13:45; Start 07/29/16 at 13:45; Stop 07/29/16 at 13:48; Status DC Lidocaine/ Epinephrine 20 ml 20 ml 1X ONCE IJ Last administered on 07/29/16 13:45; Start 07/29/16 at 13:45; Stop 07/29/16 at 13:48; Status DC Sodium Chloride 220 meq/Sodium Acetate 90 meq/ Potassium Chloride 15 meq/ Potassium Acetate 30 meq/Potassium Phosphate 10 mmol/ Magnesium Sulfate 45 meq/ Multivitamins/ Minerals 10 ml/ Chromium/Copper/ Manganese/Seleni/ Zn 1 ml/Total Parenteral Nutrition/Amino Acids/Dextrose/ Fat Emuls... 1,920 ml @ 80 mls/hr TPN CONT IV ; Start 07/30/16 at 22:00; Stop 07/31/16 at 21:59; Status DC Norepinephrine Bitartrate 8 mg/ Sodium Chloride 258 ml @ 1.93 mls/hr 1X ONCE IV Last administered on 07/30/16 11:17; Start 07/30/16 at 11:15; Stop at 15:43; Status DC Norepinephrine Bitartrate/Sodium Chloride (Levophed Vial/ Iv Sodium Chloride 0.9 % 250ml) 258 ml @ 0 mls/hr CONT PRN IV SEE I/O RECORD Last administered on 08/02 19:54; Start 07/30/16 at 11:15; Stop 08/04/16 at 09:29; Status DC Furosemide 60 mg 60 mg 1X ONCE IVP Last administered on 07/30/16 11:14; Start 07/30/16 at 11:15; Stop 07/30/16 at 11:16; Status DC Sodium Chloride 500 ml @ 500 mls/hr Q1H IV Last administered on 07/30/16 17: 04; Start 07/30/16 at 14:30; Stop 07/30/16 at 15:29; Status DC Albumin Human 100 ml @ 100 mls/hr Q8HRS IV Last administered on 07/31/16 05: 37; Start 07/30/16 at 14:30; Stop 07/31/16 at 06:59; Status DC Furosemide/Sodium Chloride (Lasix Drip/Iv Sodium Chloride 0.9% 100ml) 100 ml @ 0 mls/hr CONT PRN IV SEE I/O RECORD Last administered on 07/31/16 03:17; Start 07/30/16 at 14:30; Stop 08/01/16 at 13:19; Status DC Ondansetron HCl (Zofran) 8 mg PRN Q8HRS PRN IV NAUSEA/VOMITING Last administered on 07/30/16 14:38; Start 07/30/16 at 14:30 Sodium Bicarbonate 50 meq 50 meq 1X ONCE IV Last administered on 07/30/16 14: 43; Start 07/30/16 at 14:30; Stop 07/30/16 at 14:31; Status DC Heparin Sodium/ Sodium Chloride 500 ml @ As Directed STK-MED ONCE .ROUTE ; Start 07/30/16 at 14:49; Stop 07/30/16 at 14:50; Status DC Lidocaine HCl 20 ml STK-MED ONCE .ROUTE ; Start 07/30/16 at 14:49; Stop at 14:50; Status DC Midazolam HCl (Versed) 2 mg STK-MED ONCE .ROUTE ; Start 07/30/16 at 15:19; Stop 07/30/16 at 15:20; Status DC Heparin Sodium/ Sodium Chloride 1,000 unit 1X ONCE IART Last administered on 15:44; Start 07/30/16 at 15:45; Stop 07/30/16 at 15:46; Status DC Midazolam HCl (Versed) 1.5 mg 1X ONCE IV Last administered on 07/30/16 15:44 ; Start 07/30/16 at 15:45; Stop 07/30/16 at 15:46; Status DC Lidocaine HCl 20 ml 1X ONCE IJ Last administered on 07/30/16 15:44; Start at 15:45; Stop 07/30/16 at 15:46; Status DC Heparin Sodium (Porcine) 18426 unit 10,000 unit STK-MED ONCE .ROUTE ; Start at 15:54; Stop 07/30/16 at 15:55; Status DC Fentanyl Citrate 30 ml @ 0 mls/hr CONT PRN PRN IV PROTOCOL Last administered on 08/08/16 10:21; Start 07/30/16 at 16:45; Stop 08/08/16 at 11:03; Status DC Sodium Bicarbonate/ Dextrose 1,150 ml @ 125 mls/hr 1X ONCE IV Last administered on 07/30/16 18:34; Start 07/30/16 at 17:30; Stop 07/31/16 at 02:41 ; Status DC Succinylcholine Chloride 200 mg 200 mg STK-MED ONCE .ROUTE ; Start 07/30/16 at 19:47; Stop 07/30/16 at 19:48; Status DC Propofol 100 ml @ As Directed STK-MED ONCE IV ; Start 07/30/16 at 19:48; Stop 07/30/16 at 19:49; Status DC Midazolam HCl (Versed 100mg/ 100ml Premix) 100 ml @ 0 mls/hr CONT PRN IV SEE I/ O RECORD Last administered on 08/03/16 12:18; Start 07/30/16 at 21:15 Sodium Bicarbonate 50 meq 50 meq 1X ONCE IV Last administered on 07/30/16 22: 15; Start 07/30/16 at 22:30; Stop 07/30/16 at 22:31; Status DC Dopamine HCl/ Dextrose 250 ml @ 11.513 mls/ hr CONT PRN IV SEE I/O RECORD Last administered on 07/31/16 20:16; Start 07/30/16 at 22:15; Stop 08/04/16 at 09:29; Status DC Sodium Bicarbonate/ Dextrose 1,150 ml @ 125 mls/hr Q9H12M IV Last administered on 08/01/16 09:30; Start 07/31/16 at 03:00; Stop 08/01/16 at 13:19 ; Status DC Propofol (Diprivan) 1,000 mg STK-MED ONCE IV ; Start 07/30/16 at 20:00; Stop at 08:16; Status DC Succinylcholine Chloride 200 mg 200 mg STK-MED ONCE .ROUTE ; Start 07/30/16 at 20:00; Stop 07/31/16 at 08:16; Status DC Tigecycline 50 mg/ Sodium Chloride 50 ml @ 100 mls/hr Q12HR IV Last administered on 08/04/16 09:01; Start 07/31/16 at 21:00; Stop 08/04/16 at 10:00 ; Status DC Tigecycline/ Sodium Chloride (Tygacil/Iv Sodium Chloride 0.9% 100ml) 100 ml @ 200 mls/hr 1X ONCE IV Last administered on 07/31/16 09:22; Start 07/31/16 at 09:00; Stop 07/31/16 at 09:29; Status DC Darbepoetin Sarbjit 60 mcg 60 mcg WEEKLYHS SQ Last administered on 08/07/16 21:41 ; Start 07/31/16 at 21:00 Albumin Human 100 ml @ 100 mls/hr 1X ONCE IV Last administered on 07/31/16 11:40; Start 07/31/16 at 11:15; Stop 07/31/16 at 12:14; Status DC Albumin Human 100 ml @ 100 mls/hr 1X ONCE IV Last administered on 07/31/16 12:03; Start 07/31/16 at 11:15; Stop 07/31/16 at 12:14; Status DC Sodium Chloride (Iv Sodium Chloride 0.9% 1000ml Bag) 1,000 ml @ 1,000 mls/hr Q1H PRN IV hypotension; Start 07/31/16 at 11:33; Stop 07/31/16 at 17:32; Status DC Info (PHARMACY MONITORING -- do not chart) 1 each PRN DAILY PRN MC SEE COMMENTS ; Start 07/31/16 at 11:45 Info (PHARMACY MONITORING -- do not chart) 1 each PRN DAILY PRN MC SEE COMMENTS ; Start 07/31/16 at 11:45; Status UNV Hydrocortisone Sodium Succinate (Solu-Cortef) 100 mg Q8HRS IV Last administered on 08/04/16 06:16; Start 08/01/16 at 07:00; Stop 08/04/16 at 09:29 ; Status DC Albuterol/ Ipratropium (Duoneb) 3 ml RTQID NEB Last administered on 08/12/16 09 :29; Start 08/01/16 at 08:00 Albuterol/ Ipratropium 3 ml 3 ml STK-MED ONCE .ROUTE Last administered on 07:34; Start 08/01/16 at 06:59; Stop 08/01/16 at 07:00; Status DC Sodium Chloride 1,000 ml @ 1,000 mls/hr Q1H PRN IV hypotension; Start 08/01/16 at 06:57; Stop 08/01/16 at 12:56; Status DC Albumin Human (Albuminar) 200 ml @ 200 mls/hr 1X PRN PRN IV Hypotension; Start 08/01/16 at 07:00; Stop 08/01/16 at 12:59; Status DC Info (PHARMACY MONITORING -- do not chart) 1 each PRN DAILY PRN MC SEE COMMENTS ; Start 08/01/16 at 07:00; Status UNV Info 1 each 1 each PRN DAILY PRN MC SEE COMMENTS Last administered on 08/12/16 10:49; Start 08/01/16 at 13:30 Sodium Chloride 220 meq/Sodium Acetate 90 meq/ Potassium Chloride 15 meq/ Potassium Acetate 30 meq/Potassium Phosphate 10 mmol/ Magnesium Sulfate 45 meq/ Multivitamins/ Minerals 10 ml/ Chromium/Copper/ Manganese/Seleni/ Zn 1 ml/Total Parenteral Nutrition/Amino Acids/Dextrose/ Fat Emuls... 1,920 ml @ 80 mls/hr TPN CONT IV Last administered on 08/01/16 21:56; Start 08/01/16 at 22:00; Stop 08/02/16 at 21:59; Status DC Potassium Chloride (KCl Premix 20meq) 50 ml @ 50 mls/hr Q1H IV Last administered on 08/01/16 19:05; Start 08/01/16 at 17:00; Stop 08/01/16 at 18:59 ; Status DC Insulin Aspart 0-6 UNITS TIDWMEALS SQ Last administered on 08/02/16 11:33; Start 08/02/16 at 12:00; Stop 08/02/16 at 14:34; Status DC Sodium Chloride 220 meq/Sodium Acetate 90 meq/ Potassium Chloride 15 meq/ Potassium Acetate 30 meq/Magnesium Sulfate 45 meq/ Multivitamins/ Minerals 10 ml / Chromium/Copper/ Manganese/Seleni/ Zn 1 ml/Total Parenteral Nutrition/Amino Acids/Dextrose/ Fat Emulsion Intravenous 1,920 ml @ 80 mls/hr TPN CONT IV Last administered on 08/02/16 21:34; Start 08/02/16 at 22:00; Stop 08/03/16 at 21:59; Status DC Levofloxacin/ Dextrose 150 ml @ 100 mls/hr 1X ONCE IV Last administered on 14:35; Start 08/02/16 at 14:00; Stop 08/02/16 at 15:29; Status DC Daptomycin/Sodium Chloride (Cubicin/Iv Sodium Chloride 0.9% 50ml) 50 ml @ 100 mls/hr ONCE ONCE IV Last administered on 08/02/16 14:34; Start 08/02/16 at 15 :00; Stop 08/02/16 at 15:29; Status DC Insulin Aspart 0-6 UNITS Q6HRS SQ Last administered on 08/11/16 18:13; Start 08/02/16 at 18:00 Sodium Chloride (Iv Sodium Chloride 0.9% 1000ml Bag) 1,000 ml @ 1,000 mls/hr Q1H PRN IV hypotension; Start 08/03/16 at 07:26; Stop 08/03/16 at 13:25; Status DC Diphenhydramine HCl (Benadryl) 25 mg 1X PRN PRN IV ITCHING; Start 08/03/16 at 07:30; Stop 08/04/16 at 07:29; Status DC Diphenhydramine HCl (Benadryl) 25 mg 1X PRN PRN IV ITCHING; Start 08/03/16 at 07:30; Stop 08/04/16 at 07:29; Status DC Sodium Chloride (Normal Saline Flush) 10 ml 1X PRN PRN IV AP catheter pack; Start 08/03/16 at 07:30; Stop 08/04/16 at 07:29; Status DC Sodium Chloride 10 ml 10 ml 1X PRN PRN IV TUNNEL HEADING INSPECTOR catheter pack; Start 08/03/16 at 07:30; Stop 08/04/16 at 07:29; Status DC Sodium Chloride (Iv Sodium Chloride 0.9% 1000ml Bag) 1,000 ml @ 400 mls/hr Q2H30M PRN IV PATENCY; Start 08/03/16 at 07:26; Stop 08/03/16 at 19:25; Status DC Info 1 each 1 each PRN DAILY PRN MC SEE COMMENTS; Start 08/03/16 at 07:30; Status UNV Albumin Human 200 ml @ 200 mls/hr Q2HR IV Last administered on 08/03/16 10:00 ; Start 08/03/16 at 08:44; Stop 08/03/16 at 10:59; Status DC Sodium Chloride 160 meq/Sodium Acetate 60 meq/ Potassium Chloride 15 meq/ Potassium Acetate 30 meq/Magnesium Sulfate 25 meq/ Multivitamins/ Minerals 10 ml / Chromium/Copper/ Manganese/Seleni/ Zn 1 ml/Total Parenteral Nutrition/Amino Acids/Dextrose/ Fat Emulsion Intravenous 1,500 ml @ 62.5 mls/hr TPN CONT IV Last administered on 08/03/16 22:52; Start 08/03/16 at 22:00; Stop 08/04/16 at 21:59; Status DC Levofloxacin/ Dextrose 100 ml @ 100 mls/hr 1X ONCE IV Last administered on 10:50; Start 08/04/16 at 07:30; Stop 08/04/16 at 08:30; Status DC Daptomycin 450 mg/ Sodium Chloride 50 ml @ 100 mls/hr ONCE ONCE IV Last administered on 08/04/16 09:55; Start 08/04/16 at 08:00; Stop 08/04/16 at 08:30 ; Status DC Tigecycline/ Sodium Chloride (Tygacil/Iv Sodium Chloride 0.9% 50ml) 50 ml @ 100 mls/hr Q12HR IV Last administered on 08/09/16 07:20; Start 08/04/16 at 21: 00; Stop 08/09/16 at 09:42; Status DC Hydrocortisone Sodium Succinate 50 mg 50 mg Q8HRS IV Last administered on 05:39; Start 08/04/16 at 14:00; Stop 08/05/16 at 11:12; Status DC Furosemide 100 mg/ Sodium Chloride 100 ml @ 0 mls/hr CONT PRN IV SEE I/O RECORD Last administered on 08/09/16 06:43; Start 08/04/16 at 11:30; Stop 08/09 at 11:31; Status DC Sodium Chloride 160 meq/Sodium Acetate 60 meq/ Potassium Chloride 15 meq/ Potassium Acetate 30 meq/Magnesium Sulfate 25 meq/ Multivitamins/ Minerals 10 ml / Chromium/Copper/ Manganese/Seleni/ Zn 1 ml/Total Parenteral Nutrition/Amino Acids/Dextrose/ Fat Emulsion Intravenous 1,500 ml @ 62.5 mls/hr TPN CONT IV Last administered on 08/04/16 21:45; Start 08/04/16 at 22:00; Stop 08/06/16 at 08:48; Status DC Sodium Chloride 1,000 ml @ 1,000 mls/hr Q1H PRN IV hypotension; Start 08/04/16 at 12:00; Stop 08/04/16 at 17:59; Status DC Sodium Chloride (Iv Sodium Chloride 0.9% 1000ml Bag) 1,000 ml @ 400 mls/hr Q2H30M PRN IV PATENCY; Start 08/04/16 at 12:00; Stop 08/04/16 at 23:59; Status DC Info 1 each 1 each PRN DAILY PRN MC SEE COMMENTS; Start 08/04/16 at 16:30; Status UNV Levofloxacin/ Dextrose 100 ml @ 100 mls/hr 1X ONCE IV Last administered on 14:27; Start 08/05/16 at 14:00; Stop 08/05/16 at 14:59; Status DC Daptomycin/Sodium Chloride (Cubicin/Iv Sodium Chloride 0.9% 50ml) 50 ml @ 100 mls/hr 1X ONCE IV Last administered on 08/05/16 14:27; Start 08/05/16 at 14: 00; Stop 08/05/16 at 14:29; Status DC Heparin Sodium (Porcine) 10,000 unit STK-MED ONCE .ROUTE ; Start 08/05/16 at 09: 35; Stop 08/05/16 at 09:36; Status DC Lidocaine/Sodium Bicarbonate 20 ml 20 ml STK-MED ONCE IJ ; Start 08/05/16 at 09: 36; Stop 08/05/16 at 09:37; Status DC Heparin Sodium/ Sodium Chloride 500 ml @ As Directed STK-MED ONCE .ROUTE ; Start 08/05/16 at 09:36; Stop 08/05/16 at 09:37; Status DC Lidocaine/Sodium Bicarbonate (Buffered Lidocaine 1%) 2 ml 1X ONCE IJ Last administered on 08/05/16 10:04; Start 08/05/16 at 10:00; Stop 08/05/16 at 10:02 ; Status DC Heparin Sodium/ Sodium Chloride 60 unit 1X ONCE IV Last administered on 10:04; Start 08/05/16 at 10:00; Stop 08/05/16 at 10:02; Status DC Heparin Sodium (Porcine) 2,800 unit 1X ONCE INT CAT Last administered on 10:04; Start 08/05/16 at 10:00; Stop 08/05/16 at 10:02; Status DC Info (PHARMACY MONITORING -- do not chart) 1 each PRN DAILY PRN MC SEE COMMENTS ; Start 08/05/16 at 10:30; Stop 08/05/16 at 10:30; Status DC Info (PHARMACY MONITORING -- do not chart) 1 each PRN DAILY PRN MC SEE COMMENTS ; Start 08/05/16 at 10:30; Stop 08/05/16 at 10:30; Status DC Hydrocortisone Sodium Succinate 50 mg 50 mg BID IV Last administered on 07:49; Start 08/05/16 at 21:00; Stop 08/07/16 at 10:23; Status DC Sodium Chloride 160 meq/Sodium Acetate 60 meq/ Potassium Chloride 15 meq/ Potassium Acetate 30 meq/Magnesium Sulfate 25 meq/ Multivitamins/ Minerals 10 ml / Chromium/Copper/ Manganese/Seleni/ Zn 1 ml/Total Parenteral Nutrition/Amino Acids/Dextrose/ Fat Emulsion Intravenous 1,500 ml @ 62.5 mls/hr TPN CONT IV Last administered on 08/05/16 22:04; Start 08/05/16 at 22:00; Stop 08/06/16 at 21:59; Status DC Daptomycin 500 mg/ Sodium Chloride 50 ml @ 100 mls/hr Q24H IV Last administered on 08/11/16 14:20; Start 08/06/16 at 14:00 Sodium Chloride (Iv Sodium Chloride 0.9% 1000ml Bag) 1,000 ml @ 1,000 mls/hr Q1H PRN IV hypotension; Start 08/06/16 at 08:21; Stop 08/06/16 at 14:20; Status DC Diphenhydramine HCl (Benadryl) 25 mg 1X PRN PRN IV ITCHING; Start 08/06/16 at 08:30; Stop 08/07/16 at 08:29; Status DC Diphenhydramine HCl (Benadryl) 25 mg 1X PRN PRN IV ITCHING; Start 08/06/16 at 08:30; Stop 08/07/16 at 08:29; Status DC Sodium Chloride (Normal Saline Flush) 10 ml 1X PRN PRN IV AP catheter pack; Start 08/06/16 at 08:30; Stop 08/07/16 at 08:29; Status DC Sodium Chloride 10 ml 10 ml 1X PRN PRN IV TUNNEL HEADING INSPECTOR catheter pack; Start 08/06/16 at 08:30; Stop 08/07/16 at 08:29; Status DC Sodium Chloride (Iv Sodium Chloride 0.9% 1000ml Bag) 1,000 ml @ 400 mls/hr Q2H30M PRN IV PATENCY; Start 08/06/16 at 08:21; Stop 08/06/16 at 20:20; Status DC Info 1 each 1 each PRN DAILY PRN MC SEE COMMENTS; Start 08/06/16 at 08:30; Status UNV Albumin Human 200 ml @ 200 mls/hr 1X STAT IV Last administered on 08/06/16 10:09; Start 08/06/16 at 09:52; Stop 08/06/16 at 10:51; Status DC Sodium Chloride/ Sodium Acetate/ Potassium Chloride/ Potassium Acetate/ Magnesium Sulfate/ Multivitamins/ Minerals/Chromium/ Copper/Manganese/ Seleni/Zn /Total Parenteral Nutrition/Amino Acids/Dextrose/ Fat Emulsion Intravenous ( Sodium Chloride/ Infuvite Adult/ Multitrace-5 Conc/ Tpn - Tpn Flu... 1,500 ml @ 62.5 mls/hr TPN CONT IV Last administered on 08/06/16 21:57; Start at 22:00; Stop 08/07/16 at 21:59; Status DC Darbepoetin Sarbjit 60 mcg 60 mcg [id number] SQ ; Start 08/07/16 at 21:00; Status UNV Potassium Chloride (KCl Premix 20meq) 50 ml @ 50 mls/hr Q1H IV Last administered on 08/07/16 10:46; Start 08/07/16 at 08:00; Stop 08/07/16 at 09:59 ; Status DC Hydrocortisone Sodium Succinate 25 mg 25 mg BID IV ; Start 08/07/16 at 21:00; Stop 08/07/16 at 21:00; Status DC Sodium Chloride (Iv Sodium Chloride 0.9% 1000ml Bag) 1,000 ml @ 1,000 mls/hr Q1H PRN IV hypotension; Start 08/07/16 at 12:08; Stop 08/07/16 at 18:07; Status DC Diphenhydramine HCl (Benadryl) 25 mg 1X PRN PRN IV ITCHING; Start 08/07/16 at 12:15; Stop 08/08/16 at 12:14; Status DC Diphenhydramine HCl (Benadryl) 25 mg 1X PRN PRN IV ITCHING; Start 08/07/16 at 12:15; Stop 08/08/16 at 12:14; Status DC Sodium Chloride (Normal Saline Flush) 10 ml 1X PRN PRN IV AP catheter pack; Start 08/07/16 at 12:15; Stop 08/08/16 at 12:14; Status DC Sodium Chloride (Normal Saline Flush) 10 ml 1X PRN PRN IV TUNNEL HEADING INSPECTOR catheter pack; Start 08/07/16 at 12:15; Stop 08/08/16 at 12:14; Status DC Info (PHARMACY MONITORING -- do not chart) 1 each PRN DAILY PRN MC SEE COMMENTS ; Start 08/07/16 at 12:15; Status UNV Info 1 each 1 each PRN DAILY PRN MC SEE COMMENTS; Start 08/07/16 at 12:15; Status UNV Sodium Chloride 160 meq/Sodium Acetate 60 meq/ Potassium Chloride 55 meq/ Potassium Acetate 30 meq/Magnesium Sulfate 25 meq/ Multivitamins/ Minerals 10 ml / Chromium/Copper/ Manganese/Seleni/ Zn 1 ml/Total Parenteral Nutrition/Amino Acids/Dextrose/ Fat Emulsion Intravenous 1,500 ml @ 62.5 mls/hr TPN CONT IV Last administered on 08/07/16 21:41; Start 08/07/16 at 22:00; Stop 08/08/16 at 21:59; Status DC Potassium Chloride (KCl Premix 20meq) 50 ml @ 50 mls/hr 1X ONCE IV Last administered on 08/08/16 09:04; Start 08/08/16 at 10:00; Stop 08/08/16 at 10:59 ; Status DC Fentanyl Citrate 25 mcg 25 mcg PRN Q4HRS PRN IV PAIN Last administered on 06:34; Start 08/08/16 at 11:00 Potassium Chloride 50 ml @ 50 mls/hr 1X ONCE IV Last administered on 15:33; Start 08/08/16 at 11:15; Stop 08/08/16 at 12:14; Status DC Sodium Chloride 140 meq/Sodium Acetate 60 meq/ Potassium Chloride 70 meq/ Potassium Acetate 30 meq/Magnesium Sulfate 25 meq/ Multivitamins/ Minerals 10 ml / Chromium/Copper/ Manganese/Seleni/ Zn 1 ml/Total Parenteral Nutrition/Amino Acids/Dextrose/ Fat Emulsion Intravenous 1,500 ml @ 62.5 mls/hr TPN CONT IV Last administered on 08/08/16 21:42; Start 08/08/16 at 22:00; Stop 08/09/16 at 11:30; Status DC Tigecycline 50 mg/ Sodium Chloride 50 ml @ 100 mls/hr Q12HR IV ; Start at 09:42; Stop 08/09/16 at 10:03; Status DC Dextrose 1,000 ml @ 80 mls/hr [id number] IV ; Start 08/09/16 at 11:45; Stop at 11:57; Status DC Dextrose/Sodium Chloride 1,000 ml @ 50 mls/hr Q20H IV Last administered on 12:22; Start 08/09/16 at 12:00; Stop 08/10/16 at 10:09; Status DC Sodium Chloride 10 meq/Sodium Acetate 10 meq/ Potassium Chloride 40 meq/ Potassium Acetate 10 meq/Magnesium Sulfate 15 meq/ Multivitamins/ Minerals 10 ml / Chromium/Copper/ Manganese/Seleni/ Zn 1 ml/Total Parenteral Nutrition/Amino Acids/Dextrose/ Fat Emulsion Intravenous 1,512 ml @ 63 mls/hr TPN CONT IV Last administered on 08/10/16 10:44; Start 08/09/16 at 22:00; Stop 08/10/16 at 21:59; Status DC Dextrose 1,000 ml @ 100 mls/hr Q10H IV Last administered on 08/10/16 10:37; Start 08/10/16 at 10:15; Stop 08/10/16 at 13:48; Status DC Potassium Chloride 50 ml @ 50 mls/hr 1X ONCE IV Last administered on 10:39; Start 08/10/16 at 10:30; Stop 08/10/16 at 11:29; Status DC Dextrose 1,000 ml @ 100 mls/hr Q10H IV Last administered on 08/11/16 21:31; Start 08/10/16 at 14:00 Potassium Chloride 40 meq/ Potassium Acetate 10 meq/Magnesium Sulfate 15 meq/ Multivitamins/ Minerals 10 ml/ Chromium/Copper/ Manganese/Seleni/ Zn 1 ml/Total Parenteral Nutrition/Amino Acids/Dextrose/ Fat Emulsion Intravenous 1,512 ml @ 63 mls/hr TPN CONT IV Last administered on 08/10/16 22:13; Start 08/10/16 at 22:00; Stop 08/11/16 at 21:59; Status DC Potassium Chloride 50 ml @ 50 mls/hr Q1H IV Last administered on 08/11/16 13: 05; Start 08/11/16 at 11:00; Stop 08/11/16 at 12:59; Status DC Potassium Chloride 20 meq/ Potassium Acetate 30 meq/Magnesium Sulfate 15 meq/ Multivitamins/ Minerals 10 ml/ Chromium/Copper/ Manganese/Seleni/ Zn 1 ml/Total Parenteral Nutrition/Amino Acids/Dextrose/ Fat Emulsion Intravenous 1,512 ml @ 63 mls/hr TPN CONT IV Last administered on 08/11/16t 21:31; Start 08/11/16 at 22:00; Stop 08/12/16 at 21:59 Potassium Chloride/ Potassium Acetate/ Magnesium Sulfate/ Multivitamins/ Minerals/Chromium/ Copper/Manganese/ Seleni/Zn/Total Parenteral Nutrition/Amino Acids/Dextrose/ Fat Emulsion Intravenous (Infuvite Adult/ Multitrace-5 Conc/ Tpn - Tpn Fluid/ Dextrose 70%-Water Iv Soln/ Intralipid 20%) 1,512 ml @ 63 mls/ hr TPN CONT IV ; Start 08/12/16 at 22:00 Active Scripts Active Dilaudid (Hydromorphone Hcl) 4 Mg Tablet 4 Mg PO Q6HRS Phenazopyridine Hcl 200 Mg Tablet 200 Mg PO PRN TID PRN FENTANYL 50mcg/hr (Fentanyl) 1 Each Patch.td72 1 Patch TD Q3DAYS Anaspaz (Hyoscyamine Sulfate) 0.125 Mg Tab.rapdis 0.125 Mg PO Q6HRS PRN Cefpodoxime Proxetil 200 Mg Tablet 200 Mg PO BID Sertraline Hcl 50 Mg Tablet 100 Mg PO DAILY 30 Days Protonix (Pantoprazole Sodium) 40 Mg Tablet.dr 1 Tab PO DAILY Zinc Oxide 56.7 Gm Oint...g. 1 Sang TP BID Lidocaine 35.44 Gm Oint...g. 1 Sang TP BID Ondansetron Odt (Ondansetron) 4 Mg Tab.rapdis 8 Mg PO PRN Q8HRS PRN Gas-X (Simethicone) 80 Mg Tab.chew 80 Mg PO PRN QID PRN Reported Lorazepam 0.5 Mg Tablet 0.5 Mg PO PRN BID PRN Vitals/I & O Vital Sign - Last 24 Hours 08/11/16 08/11/16 08/11/16 08/11/16 15:00 16:00 16:00 17:00 Temp 98.1 98.1 Pulse 78 75 74 Resp 24 26 21 B/P 86/45 118/59 139/68 Pulse Ox 100 100 100 O2 Delivery Room Air Nasal Cannula Room Air Room Air O2 Flow Rate 2.0 08/11/16 08/11/16 08/11/16 08/11/16 18:00 19:00 19:22 20:00 Temp 98.1 98.1 Pulse 76 80 Resp 23 B/P 147/88 145/78 Pulse Ox 100 100 100 O2 Delivery Room Air Room Air Room Air Room Air 08/11/16 08/11/16 08/11/16 08/11/16 20:00 21:00 22:03 22:07 Temp 98.1 98.5 98.5 98.1 98.5 98.5 Pulse 80 81 80 Resp 19 22 B/P 127/64 119/63 167/65 Pulse Ox 100 99 99 99 O2 Delivery Room Air Room Air Room Air Room Air 08/11/16 08/12/16 08/12/16 08/12/16 23:08 00:21 00:24 00:37 Pulse 68 74 Resp 16 19 20 B/P 118/60 149/77 Pulse Ox 100 100 100 O2 Delivery Room Air Room Air Room Air Room Air 08/12/16 08/12/16 08/12/16 08/12/16 01:05 01:07 02:00 03:00 Temp 97.9 97.9 Pulse 71 69 73 Resp 18 19 17 B/P 158/89 123/56 154/73 Pulse Ox 100 100 99 O2 Delivery Room Air Room Air Room Air 08/12/16 08/12/16 08/12/16 08/12/16 04:00 04:00 05:00 06:00 Temp 98.0 98.0 98.0 98.0 Pulse 61 70 70 Resp 23 20 20 B/P 142/82 151/73 146/70 Pulse Ox 99 100 100 O2 Delivery Room Air Room Air Room Air Room Air 08/12/16 08/12/16 08/12/16 08/12/16 06:34 07:00 07:04 08:00 Pulse 80 65 Resp 18 23 17 B/P 147/74 132/65 Pulse Ox 100 100 100 100 O2 Delivery Room Air Room Air Room Air Room Air O2 Flow Rate 2.0 08/12/16 08/12/16 08/12/16 08:00 09:00 09:30 Pulse 84 Resp 24 B/P 142/73 Pulse Ox 100 O2 Delivery Room Air Room Air Room Air Intake and Output 08/11/16 08/11/16 08/12/16 15:00 23:00 07:00 Intake Total 50 ml 1227 ml 0 ml Output Total 495 ml 1050 ml 1630 ml Balance -445 ml 177 ml -1630 ml MATT PALACIOS MD Aug 12, 2016 14:03
--- NOTE | 2016-08-12 14:37 | PDOC ---
PULMONARY PROGRESS NOTES Subjective no resp complains Vitals Vital Signs Date Time Temp Pulse Resp B/P Pulse Ox O2 Delivery O2 Flow Rate FiO2 08/12/16 09:30 Room Air 08/12/16 09:00 84 24 142/73 100 08/12/16 07:04 2.0 08/12/16 06:00 98.0 98.0 General: Alert, No acute distress HEENT: Other (nc at perrl, nose clear, orally intuvated. ) Lungs: Clear Cardiovascular: S1, S2 Abdomen: Other (EC fistula) Neuro Exam: Alert Skin: Warm Labs Laboratory Tests Test 08/10/16 15:01 08/10/16 15:18 08/10/16 18:30 08/11/16 00:54 O2 Saturation 98% (92-99) Arterial Blood pH 7.49 (7.35-7.45) Arterial Blood pCO2 at Patient Temp 35mmHg (35-46) Arterial Blood pO2 at Patient Temp 121mmHg (65-108) Arterial Blood HCO3 26mmol/L (21-28) Arterial Blood Base Excess 3mmol/L (-3-3) FiO2 30 Glucose (Fingerstick) 158mg/dL (70-99) 149mg/dL (70-99) 138mg/dL (70-99) Test 08/11/16 03:28 08/11/16 03:37 08/11/16 05:30 08/11/16 05:34 O2 Saturation 99% (92-99) Arterial Blood pH 7.48 (7.35-7.45) Arterial Blood pCO2 at Patient Temp 39mmHg (35-46) Arterial Blood pO2 at Patient Temp 161mmHg (65-108) Arterial Blood HCO3 29mmol/L (21-28) Arterial Blood Base Excess 5mmol/L (-3-3) FiO2 28 Glucose (Fingerstick) 119mg/dL (70-99) 135mg/dL (70-99) White Blood Count 5.9x10^3/uL (4.0-11.0) Red Blood Count 2.75x10^6/uL (3.50-5.40) Hemoglobin 7.3g/dL (12.0-15.5) Hematocrit 23.3% (36.0-47.0) Mean Corpuscular Volume 85fL (79-100) Mean Corpuscular Hemoglobin 26pg (25-35) Mean Corpuscular Hemoglobin Concent 31g/dL (31-37) Red Cell Distribution Width 23.5% (11.5-14.5) Platelet Count 75x10^3/uL (140-400) Neutrophils (%) (Auto) 69% (31-73) Lymphocytes (%) (Auto) 17% (24-48) Monocytes (%) (Auto) 10% (0-9) Eosinophils (%) (Auto) 3% (0-3) Basophils (%) (Auto) 1% (0-3) Neutrophils # (Auto) 4.1x10^3uL (1.8-7.7) Lymphocytes # (Auto) 1.0x10^3/uL (1.0-4.8) Monocytes # (Auto) 0.6x10^3/uL (0.0-1.1) Eosinophils # (Auto) 0.2x10^3/uL (0.0-0.7) Basophils # (Auto) 0.0x10^3/uL (0.0-0.2) Sodium Level 156mmol/L (136-145) Potassium Level 3.2mmol/L (3.5-5.1) Chloride Level 116mmol/L (98-107) Carbon Dioxide Level 31mmol/L (21-32) Anion Gap 9 (6-14) Blood Urea Nitrogen 51mg/dL (7-20) Creatinine 0.8mg/dL (0.6-1.0) Estimated GFR (Cockcroft-Gault) 88.2 Glucose Level 147mg/dL (70-99) Calcium Level 9.2mg/dL (8.5-10.1) Total Bilirubin 4.8mg/dL (0.2-1.0) Direct Bilirubin 2.7mg/dL (0.0-0.2) Aspartate Amino Transf (AST/SGOT) 32U/L (15-37) Alanine Aminotransferase (ALT/SGPT) 36U/L (14-59) Alkaline Phosphatase 187U/L (46-116) Creatine Kinase 35U/L (26-192) Total Protein 5.9g/dL (6.4-8.2) Albumin 2.5g/dL (3.4-5.0) Test 08/11/16 11:43 08/11/16 18:08 08/12/16 00:10 08/12/16 05:50 Glucose (Fingerstick) 158mg/dL (70-99) 174mg/dL (70-99) 164mg/dL (70-99) 133mg/dL (70-99) White Blood Count 5.0x10^3/uL (4.0-11.0) Red Blood Count 3.15x10^6/uL (3.50-5.40) Hemoglobin 8.5g/dL (12.0-15.5) Hematocrit 26.7% (36.0-47.0) Mean Corpuscular Volume 85fL (79-100) Mean Corpuscular Hemoglobin 27pg (25-35) Mean Corpuscular Hemoglobin Concent 32g/dL (31-37) Red Cell Distribution Width 24.7% (11.5-14.5) Platelet Count 137x10^3/uL (140-400) Neutrophils (%) (Auto) 55% (31-73) Lymphocytes (%) (Auto) 28% (24-48) Monocytes (%) (Auto) 11% (0-9) Eosinophils (%) (Auto) 5% (0-3) Basophils (%) (Auto) 1% (0-3) Neutrophils # (Auto) 2.8x10^3uL (1.8-7.7) Lymphocytes # (Auto) 1.4x10^3/uL (1.0-4.8) Monocytes # (Auto) 0.6x10^3/uL (0.0-1.1) Eosinophils # (Auto) 0.2x10^3/uL (0.0-0.7) Basophils # (Auto) 0.1x10^3/uL (0.0-0.2) Sodium Level 145mmol/L (136-145) Potassium Level 3.6mmol/L (3.5-5.1) Chloride Level 107mmol/L (98-107) Carbon Dioxide Level 28mmol/L (21-32) Anion Gap 10 (6-14) Blood Urea Nitrogen 33mg/dL (7-20) Creatinine 0.7mg/dL (0.6-1.0) Estimated GFR (Cockcroft-Gault) 102.9 Glucose Level 143mg/dL (70-99) Calcium Level 9.2mg/dL (8.5-10.1) Laboratory Tests Test 08/11/16 18:08 08/12/16 00:10 08/12/16 05:50 Glucose (Fingerstick) 174mg/dL (70-99) 164mg/dL (70-99) 133mg/dL (70-99) White Blood Count 5.0x10^3/uL (4.0-11.0) Red Blood Count 3.15x10^6/uL (3.50-5.40) Hemoglobin 8.5g/dL (12.0-15.5) Hematocrit 26.7% (36.0-47.0) Mean Corpuscular Volume 85fL (79-100) Mean Corpuscular Hemoglobin 27pg (25-35) Mean Corpuscular Hemoglobin Concent 32g/dL (31-37) Red Cell Distribution Width 24.7% (11.5-14.5) Platelet Count 137x10^3/uL (140-400) Neutrophils (%) (Auto) 55% (31-73) Lymphocytes (%) (Auto) 28% (24-48) Monocytes (%) (Auto) 11% (0-9) Eosinophils (%) (Auto) 5% (0-3) Basophils (%) (Auto) 1% (0-3) Neutrophils # (Auto) 2.8x10^3uL (1.8-7.7) Lymphocytes # (Auto) 1.4x10^3/uL (1.0-4.8) Monocytes # (Auto) 0.6x10^3/uL (0.0-1.1) Eosinophils # (Auto) 0.2x10^3/uL (0.0-0.7) Basophils # (Auto) 0.1x10^3/uL (0.0-0.2) Sodium Level 145mmol/L (136-145) Potassium Level 3.6mmol/L (3.5-5.1) Chloride Level 107mmol/L (98-107) Carbon Dioxide Level 28mmol/L (21-32) Anion Gap 10 (6-14) Blood Urea Nitrogen 33mg/dL (7-20) Creatinine 0.7mg/dL (0.6-1.0) Estimated GFR (Cockcroft-Gault) 102.9 Glucose Level 143mg/dL (70-99) Calcium Level 9.2mg/dL (8.5-10.1) Medications Active Scripts Medications Dose Route/Sig Days Date Category Dilaudid (Hydromorphone Hcl) 4 Mg Tablet 4 Mg PO Q6HRS 06/29/16 Rx Phenazopyridine Hcl 200 Mg Tablet 200 Mg PO PRN TID PRN 06/29/16 Rx FENTANYL 50mcg/hr (Fentanyl) 1 Each Patch.td72 1 Patch TD Q3DAYS 06/29/16 Rx Anaspaz (Hyoscyamine Sulfate) 0.125 Mg Tab.rapdis 0.125 Mg PO Q6HRS PRN 06/29/16 Rx Cefpodoxime Proxetil 200 Mg Tablet 200 Mg PO BID 06/29/16 Rx Sertraline Hcl 50 Mg Tablet 100 Mg PO DAILY 30 05/12/16 Rx Protonix (Pantoprazole Sodium) 40 Mg Tablet.dr 1 Tab PO DAILY 12/27/15 Rx Zinc Oxide 56.7 Gm Oint...g. 1 Sang TP BID 12/18/15 Rx Lidocaine 35.44 Gm Oint...g. 1 Sang TP BID 12/18/15 Rx Ondansetron Odt (Ondansetron) 4 Mg Tab.rapdis 8 Mg PO PRN Q8HRS PRN 07/03/15 Rx Gas-X (Simethicone) 80 Mg Tab.chew 80 Mg PO PRN QID PRN 09/30/14 Rx Lorazepam 0.5 Mg Tablet 0.5 Mg PO PRN BID PRN 11/08/13 Reported Comments CXR 08/07 RESOLVED CHF Impression . 1. Acute respiratory failure, multifactorial. 2. Septic shock. off pressors 3. Bilateral pulmonary infiltrates compatible with pulmonary edema, /doubt pneumonia. resolved 4. Fungemia./Urine MDR Enterobacter and Amp res Enterococcus 07/15 5. Chronic enterocutaneous fistula. 6. Metabolic toxic encephalopathy. 7. Acute renal failure. 8. [id number] protein malnutrition, present upon admission. 9. Metabolic acidosis. resolved 10.Thrombocytopenia, sepsis induced Plan . Spoke with Dr Cisneros will screen for LTAC extubated no resp distress use prn BIPAP today PT/OT abx per ID off solucortef, bronchodilator monitor Plt cont abx, antifungal per ID protonix, scds for prophylaxis few ice chips ok WENDI GRAY MD Aug 12, 2016 14:37
[2016-08-12] MEDS: NORMAL SALINE IV SCH (18:25)
[2016-08-12] MEDS: DAPTOMYCIN IV SCH (18:25)
--- NOTE | 2016-08-12 18:31 | PDOC ---
PROGRESS NOTES Assessment Assessment Metabolic encephalopathy. Respiratory failure. Fever Abdominal pain. Septicemia. Metabolic acidosis. Pulmonary edema. Pulmonary infiltrate likely Acute renal failure on dialysis Chronic vesicoenteric fistula Abdominal wounds. Diverticulitis. Cervical cancer. Hypoalbuminemia UTI HTN RECOMMENDATIONS/PLAN: Continue medical treatment. OT/PT. Discussed with her daughter at bedside. SUBJECTIVE: Sitting in chair. OBJECTIVE: No acute focalized motor or sensory deficits. PAST MEDICAL AND SURGICAL HISTORY: Please see H&P MEDICATIONS: Refer to MAR REVIEW OF SYSTEMS: Constitutional: No malnutrition, weight loss, cachexia. Head: No recent traumatic brain or head injury. Skin: No edema, or rash. Ear: No infection, tinnitus. Eyes: No vision loss, or diplopia. Nose: No bleeding or purulent discharges. Hearing: No hearing decrease. Neck: No injury. Cardiac: HTN Pulmonary: No COPD. GI: See above. Urinary/genital: UTI. Endocrine: No cousin face, craniofacial dysmorphism, polydactyly. Skeletomuscular: generalized weakness. Neurological: see HP. Psychiatric: Denies drug use/abuse. Otherwise, not [id number] review of systems. PHYSICAL EXAMINATION: General appearance in subacute distress. HEENT: Normocephalic and nontraumatic. Eyes, nose, ears, and throat are unremarkable. Hearing decrease. Neck is supple. No lymphadenopathy. No Crepitus. Cardiovascular: S1, S2, regular rate and rhythm. Pulmonary: On vent Abdomen: Wounds noted Extremities: Edema in hands and LE. NEUROLOGICAL EXAMINATION: Off vent. Awake. Sitting in chair. Not oriented to time, place but knows person. PERRL. EOMI. CN: no acute focal findings. Muscle tone: decreased Muscle strength: 3-4 UE, 2-3 LE DTR: 1+ Plantar reflex: Flexor response bilaterally Gait: Unable to walk. Sensory exam: no acute abnormal findings. No acute cerebellar signs elicited. Objective Objective Vital Signs Date Time Temp Pulse Resp B/P Pulse Ox O2 Delivery O2 Flow Rate FiO2 08/12/16 18:25 100 Room Air 2.0 08/12/16 09:00 84 24 142/73 08/12/16 06:00 98.0 98.0 Intake and Output 08/12/16 07:00 Intake Total 1277 ml Output Total 3175 ml Balance -1898 ml Intake Oral 0 ml IV Total 1277 ml Output Urine Total 1575 ml Drainage Total 1600 ml Vitals Signs Vitals VS - Last 72 Hours, by Label Date Time Temp Pulse Resp B/P Pulse Ox O2 Delivery O2 Flow Rate FiO2 08/12/16 18:25 100 Room Air 2.0 08/12/16 16:02 100 Room Air 08/12/16 09:30 Room Air 08/12/16 09:00 84 24 142/73 100 Room Air 08/12/16 08:00 Room Air 08/12/16 08:00 65 17 132/65 100 Room Air 08/12/16 07:04 100 Room Air 2.0 08/12/16 07:00 80 23 147/74 100 Room Air 08/12/16 06:34 18 100 Room Air 08/12/16 06:00 98.0 70 20 146/70 100 Room Air 98.0 08/12/16 05:00 70 20 151/73 100 Room Air 08/12/16 04:00 Room Air 08/12/16 04:00 98.0 61 23 142/82 99 Room Air 98.0 08/12/16 03:00 97.9 73 154/73 99 Room Air 97.9 08/12/16 02:00 69 17 123/56 100 Room Air 08/12/16 01:07 19 08/12/16 01:05 71 18 158/89 100 Room Air 08/12/16 00:37 20 100 Room Air 08/12/16 00:24 74 19 149/77 100 Room Air 08/12/16 00:21 Room Air 08/11/16 23:08 68 16 118/60 100 Room Air 08/11/16 22:07 98.5 80 167/65 99 Room Air 98.5 08/11/16 22:03 99 Room Air 08/11/16 21:00 98.5 81 22 119/63 99 Room Air 98.5 08/11/16 20:00 98.1 80 19 127/64 100 Room Air 98.1 08/11/16 20:00 Room Air 08/11/16 19:22 100 Room Air 08/11/16 19:00 98.1 80 145/78 100 Room Air 98.1 08/11/16 18:00 76 23 147/88 100 Room Air 08/11/16 17:00 74 21 139/68 100 Room Air 08/11/16 16:00 98.1 75 26 118/59 100 Room Air 98.1 08/11/16 16:00 Nasal Cannula 2.0 08/11/16 15:00 78 24 86/45 100 Room Air 08/11/16 14:00 83 24 134/67 98 Room Air 08/11/16 13:00 92 26 118/50 100 Nasal Cannula 2.0 08/11/16 12:00 Nasal Cannula 2.0 08/11/16 12:00 97.3 94 24 109/50 100 Nasal Cannula 2.0 97.3 08/11/16 11:41 100 Nasal Cannula 2.0 08/11/16 11:00 74 21 110/54 100 Nasal Cannula 2.0 08/11/16 10:00 97.6 84 21 128/82 99 Nasal Cannula 2.0 97.6 08/11/16 09:00 76 23 123/82 100 Nasal Cannula 2.0 08/11/16 08:50 100 Nasal Cannula 2.0 08/11/16 08:00 96.3 52 24 109/68 100 Nasal Cannula 2.0 96.3 08/11/16 08:00 Nasal Cannula 2.0 08/11/16 07:00 88 20 148/74 100 Nasal Cannula 2.0 Laboratory Laboratory Laboratory Tests Test 08/12/16 00:10 08/12/16 05:50 Glucose (Fingerstick) 164mg/dL (70-99) 133mg/dL (70-99) White Blood Count 5.0x10^3/uL (4.0-11.0) Red Blood Count 3.15x10^6/uL (3.50-5.40) Hemoglobin 8.5g/dL (12.0-15.5) Hematocrit 26.7% (36.0-47.0) Mean Corpuscular Volume 85fL (79-100) Mean Corpuscular Hemoglobin 27pg (25-35) Mean Corpuscular Hemoglobin Concent 32g/dL (31-37) Red Cell Distribution Width 24.7% (11.5-14.5) Platelet Count 137x10^3/uL (140-400) Neutrophils (%) (Auto) 55% (31-73) Lymphocytes (%) (Auto) 28% (24-48) Monocytes (%) (Auto) 11% (0-9) Eosinophils (%) (Auto) 5% (0-3) Basophils (%) (Auto) 1% (0-3) Neutrophils # (Auto) 2.8x10^3uL (1.8-7.7) Lymphocytes # (Auto) 1.4x10^3/uL (1.0-4.8) Monocytes # (Auto) 0.6x10^3/uL (0.0-1.1) Eosinophils # (Auto) 0.2x10^3/uL (0.0-0.7) Basophils # (Auto) 0.1x10^3/uL (0.0-0.2) Sodium Level 145mmol/L (136-145) Potassium Level 3.6mmol/L (3.5-5.1) Chloride Level 107mmol/L (98-107) Carbon Dioxide Level 28mmol/L (21-32) Anion Gap 10 (6-14) Blood Urea Nitrogen 33mg/dL (7-20) Creatinine 0.7mg/dL (0.6-1.0) Estimated GFR (Cockcroft-Gault) 102.9 Glucose Level 143mg/dL (70-99) Calcium Level 9.2mg/dL (8.5-10.1) Microbiology 08/01/16 Blood Culture - Final, Complete NO GROWTH AFTER 5 DAYS 07/15/16 Urine Culture - Final, Complete 07/15/16 Urine Culture Result 1 (ROYA) - Final, Complete 07/15/16 Urine Culture Result 2 (ROYA) - Final, Complete 07/15/16 Antimicrobic Susceptibility - Final, Complete 07/29/16 Aerobic Culture - Final, Complete 07/29/16 Aerobic Culture Result 1 (ROYA) - Final, Complete Medication Medications Current Medications Potassium Chloride 20 meq/ Potassium Acetate 30 meq/Magnesium Sulfate 15 meq/ Multivitamins/ Minerals 10 ml/ Chromium/Copper/ Manganese/Seleni/ Zn 1 ml/Total Parenteral Nutrition/Amino Acids/Dextrose/ Fat Emulsion Intravenous 1,512 ml @ 63 mls/hr TPN CONT IV Last administered on 08/11/16t 21:31; Start 08/11/16 at 22:00; Stop 08/12/16 at 21:59 Potassium Chloride/ Potassium Acetate/ Magnesium Sulfate/ Multivitamins/ Minerals/Chromium/ Copper/Manganese/ Seleni/Zn/Total Parenteral Nutrition/Amino Acids/Dextrose/ Fat Emulsion Intravenous (Infuvite Adult/ Multitrace-5 Conc/ Tpn - Tpn Fluid/ Dextrose 70%-Water Iv Soln/ Intralipid 20%) 1,512 ml @ 63 mls/ hr TPN CONT IV ; Start 08/12/16 at 22:00 Comment Review of Relevant I have reviewed the following items lucila (where applicable) has been applied. JEFFRY JUAREZ MD Aug 12, 2016 18:31
[2016-08-12] MEDS ORDERED: DEXTROSE 70% IV SCH ×8 (22:00)
[2016-08-12] MEDS ORDERED: AMINO ACID IV SCH ×8 (22:00)
[2016-08-12] MEDS ORDERED: [UNRECOGNIZED DRUG - OTHER] IV SCH ×8 (22:00)
[2016-08-12] MEDS ORDERED: TOTAL PARENTERAL NUTRITION IV SCH ×8 (22:00)
[2016-08-13] MEDS: MICAFUNGIN 100 MG in IV DEXTROSE 5% 100 ML IV SCH (00:14)
[2016-08-13] MEDS: LORAZEPAM 2 MG/ML VIAL IV PRN (02:40)
[2016-08-13] MEDS: FENTANYL PF 100 MCG/2 ML VIAL. IV PRN ×2 (02:41→09:23)
[2016-08-13 04:00] VITALS: BP 119/67
[2016-08-13] MEDS: IV DEXTROSE 5% 1,000 ML IV SCH (05:12)
[2016-08-13] MEDS: INSULIN ASPART 300 UNITS/3 ML INSULN.PEN SQ SCH ×3 (05:29→12:00)
[2016-08-13 05:42] LABS: BASO # 0.2 x10^3/uL (0.0-0.2); BASO % 3 % (0-3); EOS % 4 % (0-3); HEMATOCRIT 25.6 % (36.0-47.0); HEMOGLOBIN 8.4 g/dL (12.0-15.5); LYMPH # 1.4 x10^3/uL (1.0-4.8); LYMPH % 25 % (24-48); MEAN CORPUSCULAR HEMOGLOBIN 27 pg (25-35); MEAN CORPUSCULAR HGB CONC 33 g/dL (31-37); MEAN CORPUSCULAR VOLUME 84 fL (79-100); MONO % 13 % (0-9); NEUT % 54 % (31-73); PLATELET COUNT 218 x10^3/uL (140-400); RED BLOOD COUNT 3.07 x10^6/uL (3.50-5.40); RED CELL DISTRIBUTION WIDTH 25.6 % (11.5-14.5); WHITE BLOOD COUNT 5.6 x10^3/uL (4.0-11.0)
[2016-08-13 05:45] LABS: CALCIUM 8.9 mg/dL (8.5-10.1); CREATININE 0.6 mg/dL (0.6-1.0); POTASSIUM 3.3 mmol/L (3.5-5.1)
[2016-08-13 05:47] LABS: MAGNESIUM 1.6 mg/dL (1.8-2.4); PHOSPHORUS 2.1 mg/dL (2.6-4.7)
[2016-08-13 08:00] VITALS: BP 126/72
[2016-08-13] MEDS: IPRATRPIUM/ALBUTEROL 0.5/2.5MG 3 ML NEBU. NEB SCH ×2 (08:12→12:19)
--- NOTE | 2016-08-13 08:24 | PDOC ---
Infectious Disease Note Subjective Subjective Doing ok Weak but improving ROS ROS GEN: Denies fevers, chills, sweats HEENT: Denies blurred vision, sore throat CV: Denies chest pain RESP: Denies shortness of air, cough GI: Denies n/v/d NEURO: Denies confusion, dizziness MSK: Denies weakness, joint pain/swelling Vital Sign Vital Signs Vital Signs Date Time Temp Pulse Resp B/P Pulse Ox O2 Delivery O2 Flow Rate FiO2 08/13/16 08:13 100 Room Air 08/13/16 04:00 98.2 79 21 119/67 98.2 08/12/16 18:25 2.0 Physical Exam PHYSICAL EXAM GENERAL: NAD, Comfortable HEENT: PERRL, OC/OP- clear NECK: Supple, no JVD, no LN LUNGS: Clear HEART: S1S2, no gallop, no murmur ABD: Soft, NT, dressed obese. Ostomy bag [place] EXT: No edema, no cyanosis BARREL PLANER: Alert, oriented, no focal neurologic deficit SKIN: No rash IV: RIJ lines clean Labs Lab Laboratory Tests Test 08/12/16 19:15 08/13/16 00:14 08/13/16 05:16 08/13/16 05:20 Glucose (Fingerstick) 109mg/dL (70-99) 153mg/dL (70-99) 129mg/dL (70-99) White Blood Count 5.6x10^3/uL (4.0-11.0) Red Blood Count 3.07x10^6/uL (3.50-5.40) Hemoglobin 8.4g/dL (12.0-15.5) Hematocrit 25.6% (36.0-47.0) Mean Corpuscular Volume 84fL (79-100) Mean Corpuscular Hemoglobin 27pg (25-35) Mean Corpuscular Hemoglobin Concent 33g/dL (31-37) Red Cell Distribution Width 25.6% (11.5-14.5) Platelet Count 218x10^3/uL (140-400) Neutrophils (%) (Auto) 54% (31-73) Lymphocytes (%) (Auto) 25% (24-48) Monocytes (%) (Auto) 13% (0-9) Eosinophils (%) (Auto) 4% (0-3) Basophils (%) (Auto) 3% (0-3) Neutrophils # (Auto) 3.0x10^3uL (1.8-7.7) Lymphocytes # (Auto) 1.4x10^3/uL (1.0-4.8) Monocytes # (Auto) 0.7x10^3/uL (0.0-1.1) Eosinophils # (Auto) 0.2x10^3/uL (0.0-0.7) Basophils # (Auto) 0.2x10^3/uL (0.0-0.2) Sodium Level 135mmol/L (136-145) Potassium Level 3.3mmol/L (3.5-5.1) Chloride Level 103mmol/L (98-107) Carbon Dioxide Level 23mmol/L (21-32) Anion Gap 9 (6-14) Blood Urea Nitrogen 29mg/dL (7-20) Creatinine 0.6mg/dL (0.6-1.0) Estimated GFR (Cockcroft-Gault) 123.0 Glucose Level 132mg/dL (70-99) Calcium Level 8.9mg/dL (8.5-10.1) Phosphorus Level 2.1mg/dL (2.6-4.7) Magnesium Level 1.6mg/dL (1.8-2.4) Micro BLOOD CULTURE Preliminary NO GROWTH AFTER 2 DAYS Enterobacter aerogenes 50,000-100,000 colony forming units per mL URINE CULTURE RES 2 Final Enterococcus faecium 50,000-100,000 colony forming units per mL ANTIMICROBIAL SUSCEPTIBILITY Final Comment S = Susceptible; I = Intermediate; R = Resistant P = Positive; N = Negative MICS are expressed in micrograms per mL Antibiotic RSLT#1 RSLT#2 RSLT#3 RSLT#4 Amoxicillin/Clavulanic Acid R Cefazolin R Cefepime R Ceftriaxone R Cefuroxime R Cephalothin R Ciprofloxacin R R Gentamicin S Imipenem R Levofloxacin R R Nitrofurantoin R I Penicillin R Piperacillin R Tetracycline R R Tobramycin S Trimethoprim/Sulfa S Vancomycin S Objective Assessment C Glabrata sepsis - 07/27 - line removed and positive 07/29. 08/01 - neg . ECHO neg veg, 07/30. Awaiting sensitivities ? DIC with elevated INR - platelets - better Acute resp failure - extubated JULIO C - Fever and chills- better Acute Anemia - Urine Enterobacter and Amp res Enterococcus 2/ EC fistula - On TPN Enterovesicular fistula Abdominal excoriation MDR Enterobacter and enterococcus faecium in urine Plan Plan of Care continue micafungin D/c daptomycin Will need Optho eval can do at [facility] if transferred Monitor labs. await sensitivities To [facility] ABBY MOTT MD Aug 13, 2016 08:24
[2016-08-13] MEDS: PANTOPRAZOLE IV PUSH 40 MG VIAL. IVP SCH (08:28)
[2016-08-13] MEDS: ZINC OXIDE 20% TOPICAL OINTMENT 28GM TUBE. TP SCH (08:29)
[2016-08-13] MEDS: LIDOCAINE 5% TOPICAL OINTMENT 35GM TUBE. TP SCH (08:29)
--- NOTE | 2016-08-13 08:37 | PDOC ---
Objective: Objective: Reviewed other notes - possible DC to [facility] today. Per RN - no new GI issues. Vital Signs: Vital Signs Date Time Temp Pulse Resp B/P Pulse Ox O2 Delivery O2 Flow Rate FiO2 08/13/16 08:13 100 Room Air 08/13/16 08:00 98.3 86 17 126/72 98.3 08/12/16 18:25 2.0 Labs: Laboratory Tests Test 08/12/16 19:15 08/13/16 00:14 08/13/16 05:16 08/13/16 05:20 Glucose (Fingerstick) 109mg/dL 153mg/dL 129mg/dL White Blood Count 5.6x10^3/uL Red Blood Count 3.07x10^6/uL Hemoglobin 8.4g/dL Hematocrit 25.6% Mean Corpuscular Volume 84fL Mean Corpuscular Hemoglobin 27pg Mean Corpuscular Hemoglobin Concent 33g/dL Red Cell Distribution Width 25.6% Platelet Count 218x10^3/uL Neutrophils (%) (Auto) 54% Lymphocytes (%) (Auto) 25% Monocytes (%) (Auto) 13% Eosinophils (%) (Auto) 4% Basophils (%) (Auto) 3% Neutrophils # (Auto) 3.0x10^3uL Lymphocytes # (Auto) 1.4x10^3/uL Monocytes # (Auto) 0.7x10^3/uL Eosinophils # (Auto) 0.2x10^3/uL Basophils # (Auto) 0.2x10^3/uL Sodium Level 135mmol/L Potassium Level 3.3mmol/L Chloride Level 103mmol/L Carbon Dioxide Level 23mmol/L Anion Gap 9 Blood Urea Nitrogen 29mg/dL Creatinine 0.6mg/dL Estimated GFR (Cockcroft-Gault) 123.0 Glucose Level 132mg/dL Calcium Level 8.9mg/dL Phosphorus Level 2.1mg/dL Magnesium Level 1.6mg/dL PE: GEN: NAD LUNGS: breathing treatment HEART: RRR ABD: S/ND/NT NEURO/PSYCH: asleep A/P: Elevated bilirubin - improved (last checked 08/11) -imaging (CT, US) unrevealing H/o diverticular disease w/ fistulas, multiple abd surgeries -- Continue same per GI. MIESHA RICO Aug 13, 2016 08:37
--- NOTE | 2016-08-13 11:25 | PDOC ---
PROGRESS NOTES Subjective Subjective feels better. lab reviewed. potassium and magnesium low Objective Objective Vital Signs Date Time Temp Pulse Resp B/P Pulse Ox O2 Delivery O2 Flow Rate FiO2 08/13/16 08:13 100 Room Air 08/13/16 08:00 98.3 86 17 126/72 98.3 08/12/16 18:25 2.0 Intake and Output 08/13/16 07:00 Intake Total 4630 ml Output Total 2275 ml Balance 2355 ml Intake Oral 60 ml IV Total 4570 ml Output Urine Total 1700 ml Drainage Total 575 ml Physical Exam Abdomen: Soft Heart: Regular rate, Normal S1, Normal S2 Extremities: No edema General: Alert HEENT: Atraumatic Lungs: Clear to auscultation Neuro: Normal speech Psych/Mental Status: Mental status NL Skin: No rashes Assessment Assessment Problems Medical Problems:ana glabrata fungemia . acute hypoxic respiratory failure. extubated metabolic encephalopathy improved acute kidney injury due to ATN from sepsis. resolved bilateral lung infiltrates resolved disseminated intravascular coagulation. improved thrombocytopenia due to platelet antibody and sepsis. improved picc associated fungemia with sepsis . picc removed 4. Enterocutaneous fistula. 5. Enterovesical fistula. 6. Anemia of chronic disease. 7. Moderately severe protein calorie malnutrition. elevated bilirubin. suspect cholestasis critical illness myopathy hypokalemia hypomagnesemia (1) Abdominal pain Status: Acute (2) Enterocutaneous fistula Status: Acute (3) Sepsis Status: Acute (4) Severe sepsis with septic shock Status: Acute (5) Urinary tract infection Status: Acute (6) UTI (urinary tract infection) Status: Acute Plan Plan of Care replete kcl and magnesium dismiss today to select specialty hospital Comment Review of Relevant I have reviewed the following items lucila (where applicable) has been applied. Labs Laboratory Tests Test 08/11/16 11:43 08/11/16 18:08 08/12/16 00:10 08/12/16 05:50 Glucose (Fingerstick) 158mg/dL (70-99) 174mg/dL (70-99) 164mg/dL (70-99) 133mg/dL (70-99) White Blood Count 5.0x10^3/uL (4.0-11.0) Red Blood Count 3.15x10^6/uL (3.50-5.40) Hemoglobin 8.5g/dL (12.0-15.5) Hematocrit 26.7% (36.0-47.0) Mean Corpuscular Volume 85fL (79-100) Mean Corpuscular Hemoglobin 27pg (25-35) Mean Corpuscular Hemoglobin Concent 32g/dL (31-37) Red Cell Distribution Width 24.7% (11.5-14.5) Platelet Count 137x10^3/uL (140-400) Neutrophils (%) (Auto) 55% (31-73) Lymphocytes (%) (Auto) 28% (24-48) Monocytes (%) (Auto) 11% (0-9) Eosinophils (%) (Auto) 5% (0-3) Basophils (%) (Auto) 1% (0-3) Neutrophils # (Auto) 2.8x10^3uL (1.8-7.7) Lymphocytes # (Auto) 1.4x10^3/uL (1.0-4.8) Monocytes # (Auto) 0.6x10^3/uL (0.0-1.1) Eosinophils # (Auto) 0.2x10^3/uL (0.0-0.7) Basophils # (Auto) 0.1x10^3/uL (0.0-0.2) Sodium Level 145mmol/L (136-145) Potassium Level 3.6mmol/L (3.5-5.1) Chloride Level 107mmol/L (98-107) Carbon Dioxide Level 28mmol/L (21-32) Anion Gap 10 (6-14) Blood Urea Nitrogen 33mg/dL (7-20) Creatinine 0.7mg/dL (0.6-1.0) Estimated GFR (Cockcroft-Gault) 102.9 Glucose Level 143mg/dL (70-99) Calcium Level 9.2mg/dL (8.5-10.1) Test 08/12/16 19:15 08/13/16 00:14 08/13/16 05:16 08/13/16 05:20 Glucose (Fingerstick) 109mg/dL (70-99) 153mg/dL (70-99) 129mg/dL (70-99) White Blood Count 5.6x10^3/uL (4.0-11.0) Red Blood Count 3.07x10^6/uL (3.50-5.40) Hemoglobin 8.4g/dL (12.0-15.5) Hematocrit 25.6% (36.0-47.0) Mean Corpuscular Volume 84fL (79-100) Mean Corpuscular Hemoglobin 27pg (25-35) Mean Corpuscular Hemoglobin Concent 33g/dL (31-37) Red Cell Distribution Width 25.6% (11.5-14.5) Platelet Count 218x10^3/uL (140-400) Neutrophils (%) (Auto) 54% (31-73) Lymphocytes (%) (Auto) 25% (24-48) Monocytes (%) (Auto) 13% (0-9) Eosinophils (%) (Auto) 4% (0-3) Basophils (%) (Auto) 3% (0-3) Neutrophils # (Auto) 3.0x10^3uL (1.8-7.7) Lymphocytes # (Auto) 1.4x10^3/uL (1.0-4.8) Monocytes # (Auto) 0.7x10^3/uL (0.0-1.1) Eosinophils # (Auto) 0.2x10^3/uL (0.0-0.7) Basophils # (Auto) 0.2x10^3/uL (0.0-0.2) Sodium Level 135mmol/L (136-145) Potassium Level 3.3mmol/L (3.5-5.1) Chloride Level 103mmol/L (98-107) Carbon Dioxide Level 23mmol/L (21-32) Anion Gap 9 (6-14) Blood Urea Nitrogen 29mg/dL (7-20) Creatinine 0.6mg/dL (0.6-1.0) Estimated GFR (Cockcroft-Gault) 123.0 Glucose Level 132mg/dL (70-99) Calcium Level 8.9mg/dL (8.5-10.1) Phosphorus Level 2.1mg/dL (2.6-4.7) Magnesium Level 1.6mg/dL (1.8-2.4) Laboratory Tests Test 08/12/16 19:15 08/13/16 00:14 08/13/16 05:16 3/2/17 05:20 Glucose (Fingerstick) 109mg/dL (70-99) 153mg/dL (70-99) 129mg/dL (70-99) White Blood Count 5.6x10^3/uL (4.0-11.0) Red Blood Count 3.07x10^6/uL (3.50-5.40) Hemoglobin 8.4g/dL (12.0-15.5) Hematocrit 25.6% (36.0-47.0) Mean Corpuscular Volume 84fL (79-100) Mean Corpuscular Hemoglobin 27pg (25-35) Mean Corpuscular Hemoglobin Concent 33g/dL (31-37) Red Cell Distribution Width 25.6% (11.5-14.5) Platelet Count 218x10^3/uL (140-400) Neutrophils (%) (Auto) 54% (31-73) Lymphocytes (%) (Auto) 25% (24-48) Monocytes (%) (Auto) 13% (0-9) Eosinophils (%) (Auto) 4% (0-3) Basophils (%) (Auto) 3% (0-3) Neutrophils # (Auto) 3.0x10^3uL (1.8-7.7) Lymphocytes # (Auto) 1.4x10^3/uL (1.0-4.8) Monocytes # (Auto) 0.7x10^3/uL (0.0-1.1) Eosinophils # (Auto) 0.2x10^3/uL (0.0-0.7) Basophils # (Auto) 0.2x10^3/uL (0.0-0.2) Sodium Level 135mmol/L (136-145) Potassium Level 3.3mmol/L (3.5-5.1) Chloride Level 103mmol/L (98-107) Carbon Dioxide Level 23mmol/L (21-32) Anion Gap 9 (6-14) Blood Urea Nitrogen 29mg/dL (7-20) Creatinine 0.6mg/dL (0.6-1.0) Estimated GFR (Cockcroft-Gault) 123.0 Glucose Level 132mg/dL (70-99) Calcium Level 8.9mg/dL (8.5-10.1) Phosphorus Level 2.1mg/dL (2.6-4.7) Magnesium Level 1.6mg/dL (1.8-2.4) Microbiology 08/01/16 Blood Culture - Final, Complete NO GROWTH AFTER 5 DAYS 07/15/16 Urine Culture - Final, Complete 07/15/16 Urine Culture Result 1 (ROYA) - Final, Complete 07/15/16 Urine Culture Result 2 (ROYA) - Final, Complete 07/15/16 Antimicrobic Susceptibility - Final, Complete 07/29/16 Aerobic Culture - Final, Complete 07/29/16 Aerobic Culture Result 1 (ROYA) - Final, Complete Medications Current Medications Piperacillin Sod/ Tazobactam Sod/ Sodium Chloride (Zosyn/Iv Sodium Chloride 0.9 % 100ml) 100 ml @ 200 mls/hr 1X ONCE IV Last administered on 07/15/16 22:56; Start 07/15/16 at 22:00; Stop 07/15/16 at 22:29; Status DC Fentanyl Citrate 50 mcg 50 mcg PRN Q15MIN PRN IV PAIN GREATER THAN 3/10 Last administered on 07/16/16 00:30; Start 07/15/16 at 21:45; Stop 07/16/16 at 02:00; Status DC Sodium Chloride 1,000 ml @ 1,000 mls/hr 1X ONCE IV Last administered on 21:59; Start 07/15/16 at 22:00; Stop 07/15/16 at 22:59; Status DC Sodium Chloride (Iv Sodium Chloride 0.9% 500ml Bag) 500 ml @ 500 mls/hr 1X ONCE IV Last administered on 07/15/16 22:00; Start 07/15/16 at 22:00; Stop at 22:59; Status DC Ondansetron HCl (Zofran) 4 mg PRN Q8HRS PRN IV NAUSEA/VOMITING; Start 07/15/16 at 23:30; Stop 07/16/16 at 08:52; Status DC Fentanyl Citrate 50 mcg 50 mcg PRN Q2HR PRN IV SEVERE PAIN Last administered on 07/16/16 08:10; Start 07/15/16 at 23:30; Stop 07/16/16 at 08:52; Status DC Sodium Chloride (Iv Sodium Chloride 0.9% 1000ml Bag) 1,000 ml @ 150 mls/hr Q6H40M IV Last administered on 07/15/16 02:00; Start 07/15/16 at 23:45; Stop 07/16/16 at 08:52; Status DC Acetaminophen (Tylenol) 650 mg PRN Q4HRS PRN PO FEVER; Start 07/15/16 at 23:30; Stop 07/16/16 at 23:29; Status DC Info (Do NOT chart on this placeholder) 1 each PRN DAILY PRN MC NEEDS VERIFICATION; Start 07/16/16 at 03:00; Status Cancel Acetaminophen 650 mg 650 mg PRN Q4HRS PRN PO MILD PAIN / TEMP Last administered on 07/28/16 07:42; Start 07/16/16 at 08:45; Stop 07/29/16 at 08:33 ; Status DC Piperacillin Sod/ Tazobactam Sod 3.375 gm/Sodium Chloride 50 ml @ 100 mls/hr Q6HRS IV Last administered on 07/18/16 05:50; Start 07/16/16 at 10:00; Stop 07/18 at 13:28; Status DC Linezolid (Zyvox Premix) 300 ml @ 300 mls/hr Q12HR IV Last administered on 07/18 08:34; Start 07/16/16 at 10:00; Stop 07/18/16 at 13:28; Status DC Hydromorphone HCl (Dilaudid) 2 mg PRN Q4HRS PRN IV MODERATE PAIN Last administered on 08/09/16 06:39; Start 07/16/16 at 08:45; Stop 08/09/16 at 17:35 ; Status DC Hydromorphone HCl (Dilaudid) 4 mg PRN Q4HRS PRN IV SEVERE PAIN Last administered on 07/30/16 09:23; Start 07/16/16 at 08:45; Stop 07/31/16 at 15:01 ; Status DC Pantoprazole Sodium (Protonix) 40 mg DAILYAC PO Last administered on 07/27/16 11:11; Start 07/16/16 at 09:30; Stop 07/29/16 at 08:44; Status DC Hyoscyamine (Anaspaz) 0.125 mg Q6HRS PO Last administered on 07/20/16 05:20; Start 07/16/16 at 12:00; Stop 07/20/16 at 08:58; Status DC Phenazopyridine HCl (Pyridium) 200 mg TID PO Last administered on 07/20/16 08: 25; Start 07/16/16 at 09:30; Stop 07/20/16 at 08:58; Status DC Lorazepam (Ativan) 0.5 mg PRN BID PRN PO ANXIETY / AGITATION Last administered on 07/29/16 02:16; Start 07/16/16 at 08:45; Stop 07/31/16 at 15:01; Status DC Simethicone (Gas-X) 80 mg PRN Q4HRS PRN PO GAS / BLOATING Last administered on 07/24/16 22:30; Start 07/16/16 at 08:45; Stop 07/31/16 at 15:01; Status DC Zolpidem Tartrate 5 mg 5 mg PRN QHS PRN PO INSOMNIA Last administered on 23:14; Start 07/16/16 at 08:45; Stop 07/31/16 at 15:01; Status DC Potassium Chloride/Dextrose/ Sod Cl 1,000 ml @ 80 mls/hr [id number] IV Last administered on 07/16/16 10:54; Start 07/16/16 at 09:30; Stop 07/16/16 at 21:59; Status DC Fluconazole/ Sodium Chloride (Diflucan 200mg/ 100ml Premix) 100 ml @ 100 mls/ hr Q24H IV Last administered on 07/18/16 11:43; Start 07/16/16 at 11:00; Stop at 13:28; Status DC Info 1 each 1 each PRN DAILY PRN MC SEE COMMENTS Last administered on 12:41; Start 07/16/16 at 10:00; Stop 08/01/16 at 11:24; Status DC Sodium Chloride 220 meq/Sodium Acetate 90 meq/ Potassium Chloride 50 meq/ Potassium Acetate 15 meq/Potassium Phosphate 10 mmol/ Magnesium Sulfate 50 meq/ Calcium Gluconate 6 meq/ Multivitamins/ Minerals 10 ml/ Chromium/Copper/ Manganese/Seleni/ Zn 1 ml/Total Parenteral Nutrition/Amino Acids/Dextro... 1, 920 ml @ 80 mls/hr TPN CONT IV ; Start 07/16/16 at 22:00; Stop 07/16/16 at 22:00 ; Status DC Sodium Chloride/ Sodium Acetate/ Potassium Chloride/ Potassium Acetate/ Potassium Phosphate/ Magnesium Sulfate/ Calcium Gluconate/ Multivitamins/ Minerals/Chromium/ Copper/Manganese/ Seleni/Zn/Total Parenteral Nutrition/Amino Acids/Dextrose/ Fat Emulsion Intravenous (Sodium Chlori... 1,820 ml @ 75.833 mls/ hr TPN CONT IV Last administered on 07/16/16 21:03; Start 07/16/16 at 22: 00; Stop 07/17/16 at 21:59; Status DC Ondansetron HCl (Zofran) 4 mg PRN Q6HRS PRN IV NAUSEA/VOMITING Last administered on 07/21/16 08:48; Start 07/16/16 at 17:15; Stop 07/31/16 at 15:01; Status DC Diphenhydramine HCl (Benadryl) 25 mg PRN Q6HRS PRN PO ITCHING Last administered on 07/25/16 23:38; Start 07/16/16 at 17:45; Stop 07/31/16 at 15:01 ; Status DC Lidocaine (Xylocaine) 1 sang BID TP Last administered on 08/13/16 08:29; Start 07/17/16 at 09:00 Zinc Oxide 1 sang 1 sang BID TP Last administered on 08/13/16 08:29; Start at 09:30 Sodium Chloride/ Sodium Acetate/ Potassium Chloride/ Potassium Acetate/ Potassium Phosphate/ Magnesium Sulfate/ Calcium Gluconate/ Multivitamins/ Minerals/Chromium/ Copper/Manganese/ Seleni/Zn/Total Parenteral Nutrition/Amino Acids/Dextrose/ Fat Emulsion Intravenous (Sodium Chlori... 1,920 ml @ 80 mls/ hr TPN CONT IV Last administered on 07/17/16 22:13; Start 07/17/16 at 22:00; Stop 07/18/16 at 21:59; Status DC Furosemide 40 mg 40 mg 1X ONCE IVP Last administered on 07/18/16 11:43; Start 07/18/16 at 11:00; Stop 07/18/16 at 11:07; Status DC Sodium Chloride 220 meq/Sodium Acetate 90 meq/ Potassium Chloride 50 meq/ Potassium Acetate 15 meq/Potassium Phosphate 10 mmol/ Magnesium Sulfate 50 meq/ Calcium Gluconate 3 meq/ Multivitamins/ Minerals 10 ml/ Chromium/Copper/ Manganese/Seleni/ Zn 1 ml/Total Parenteral Nutrition/Amino Acids/Dextro... 1, 920 ml @ 80 mls/hr TPN CONT IV Last administered on 07/19/16 00:03; Start 07/18/16 at 22:00; Stop 07/19/16 at 21:59; Status DC Meropenem 1 gm/ Sodium Chloride 100 ml @ 200 mls/hr Q8HRS IV Last administered on 07/20/16 05:21; Start 07/18/16 at 14:00; Stop 07/20/16 at 11:25; Status DC Micafungin Sodium 100 mg/Dextrose 100 ml @ 100 mls/hr Q24H IV Last administered on 07/19/16 15:05; Start 07/18/16 at 14:00; Stop 07/20/16 at 11:25; Status DC Daptomycin/Sodium Chloride (Cubicin/Iv Sodium Chloride 0.9% 50ml) 50 ml @ 100 mls/hr Q24H IV Last administered on 07/19/16 16:56; Start 07/18/16 at 15:00; Stop 07/20/16 at 11:25; Status DC Alteplase, Recombinant (Cathflo) 2 mg 1X ONCE INT CAT Last administered on 07/19 06:24; Start 07/19/16 at 07:00; Stop 07/19/16 at 07:01; Status DC Gentamicin Sulfate 1 each 1 each PRN DAILY PRN MC SEE COMMENTS Last administered on 07/25/16 15:31; Start 07/19/16 at 12:15; Stop 07/25/16 at 16:14 ; Status DC Gentamicin Sulfate/Sodium Chloride (Iv Sodium Chloride 0.9% 100ml) 106.75 ml @ 106.75 mls/hr Q24H IV Last administered on 07/25/16 15:31; Start 07/19/16 at 13 :00; Stop 07/25/16 at 16:12; Status DC Gentamicin Sulfate 1 each 1 each 1X ONCE MC Last administered on 07/19/16 23: 00; Start 07/19/16 at 23:00; Stop 07/19/16 at 23:01; Status DC Sodium Chloride/ Sodium Acetate/ Potassium Chloride/ Potassium Acetate/ Potassium Phosphate/ Magnesium Sulfate/ Calcium Gluconate/ Multivitamins/ Minerals/Chromium/ Copper/Manganese/ Seleni/Zn/Total Parenteral Nutrition/Amino Acids/Dextrose/ Fat Emulsion Intravenous (Sodium Chlori... 1,920 ml @ 80 mls/ hr TPN CONT IV Last administered on 07/19/16 20:51; Start 07/19/16 at 22:00; Stop 07/20/16 at 21:59; Status DC Hyoscyamine (Anaspaz) 0.125 mg PRN Q6HRS PRN PO BLADDER SPASM; Start 07/20/16 at 09:00; Stop 07/31/16 at 15:01; Status DC Phenazopyridine HCl 200 mg 200 mg PRN TID PRN PO BLADDER SPASM Last administered on 07/21/16 20:14; Start 07/20/16 at 09:00; Stop 07/31/16 at 15:01; Status DC Linezolid 300 ml @ 300 mls/hr Q12HR IV Last administered on 07/25/16 09:02; Start 07/20/16 at 12:00; Stop 07/25/16 at 16:12; Status DC Sodium Chloride 220 meq/Sodium Acetate 90 meq/ Potassium Chloride 50 meq/ Potassium Acetate 15 meq/Potassium Phosphate 10 mmol/ Magnesium Sulfate 50 meq/ Calcium Gluconate 3 meq/ Multivitamins/ Minerals 10 ml/ Chromium/Copper/ Manganese/Seleni/ Zn 1 ml/Total Parenteral Nutrition/Amino Acids/Dextro... 1, 920 ml @ 80 mls/hr TPN CONT IV Last administered on 07/20/16 21:30; Start 07/20/16 at 22:00; Stop 07/21/16 at 21:59; Status DC Sodium Chloride/ Sodium Acetate/ Potassium Chloride/ Potassium Acetate/ Potassium Phosphate/ Magnesium Sulfate/ Multivitamins/ Minerals/Chromium/ Copper /Manganese/ Seleni/Zn/Total Parenteral Nutrition/Amino Acids/Dextrose/ Fat Emulsion Intravenous (Sodium Chloride/ Potass... 1,920 ml @ 80 mls/hr TPN CONT IV Last administered on 07/21/16 22:05; Start 07/21/16 at 22:00; Stop at 21:59; Status DC Alteplase, Recombinant 2 mg 2 mg PRN DAILY PRN INT CAT INFLAMMATION Last administered on 07/27/16 11:31; Start 07/21/16 at 15:00 Sodium Chloride 220 meq/Sodium Acetate 90 meq/ Potassium Chloride 50 meq/ Potassium Acetate 15 meq/Potassium Phosphate 10 mmol/ Magnesium Sulfate 50 meq/ Multivitamins/ Minerals 10 ml/ Chromium/Copper/ Manganese/Seleni/ Zn 1 ml/Total Parenteral Nutrition/Amino Acids/Dextrose/ Fat Emuls... 1,920 ml @ 80 mls/hr TPN CONT IV Last administered on 07/22/16 20:53; Start 07/22/16 at 22:00; Stop 07/23/16 at 21:59; Status DC Sodium Chloride/ Sodium Acetate/ Potassium Chloride/ Potassium Acetate/ Potassium Phosphate/ Magnesium Sulfate/ Multivitamins/ Minerals/Chromium/ Copper /Manganese/ Seleni/Zn/Total Parenteral Nutrition/Amino Acids/Dextrose/ Fat Emulsion Intravenous (Sodium Chloride/ Potass... 1,920 ml @ 80 mls/hr TPN CONT IV Last administered on 07/23/16 21:16; Start 07/23/16 at 22:00; Stop 07/24 at 21:59; Status DC Gentamicin Sulfate 1 each 1 each 1X ONCE MC ; Start 07/23/16 at 22:00; Stop 07/23 at 22:01; Status Cancel Sodium Chloride/ Sodium Acetate/ Potassium Chloride/ Potassium Acetate/ Potassium Phosphate/ Magnesium Sulfate/ Multivitamins/ Minerals/Chromium/ Copper /Manganese/ Seleni/Zn/Total Parenteral Nutrition/Amino Acids/Dextrose/ Fat Emulsion Intravenous (Sodium Chloride/ Potass... 1,920 ml @ 80 mls/hr TPN CONT IV Last administered on 07/24/16 21:15; Start 07/24/16 at 22:00; Stop 04/30 at 21:59; Status DC Gentamicin Sulfate 1 each 1X ONCE MC ; Start 07/25/16 at 12:30; Stop 07/25/16 at 12:31; Status Cancel Amlodipine Besylate 5 mg 5 mg DAILY PO Last administered on 07/27/16 11:12; Start 07/25/16 at 12:00; Stop 07/29/16 at 08:44; Status DC Sodium Chloride 220 meq/Sodium Acetate 90 meq/ Potassium Chloride 30 meq/ Potassium Acetate 15 meq/Potassium Phosphate 10 mmol/ Magnesium Sulfate 50 meq/ Multivitamins/ Minerals 10 ml/ Chromium/Copper/ Manganese/Seleni/ Zn 1 ml/Total Parenteral Nutrition/Amino Acids/Dextrose/ Fat Emuls... 1,920 ml @ 80 mls/hr TPN CONT IV Last administered on 07/25/16 22:25; Start 07/25/16 at 22:00; Stop 07/26/16 at 21:59; Status DC Sodium Chloride/ Sodium Acetate/ Potassium Chloride/ Potassium Acetate/ Potassium Phosphate/ Magnesium Sulfate/ Multivitamins/ Minerals/Chromium/ Copper /Manganese/ Seleni/Zn/Total Parenteral Nutrition/Amino Acids/Dextrose/ Fat Emulsion Intravenous (Sodium Chloride/ Potass... 1,920 ml @ 80 mls/hr TPN CONT IV Last administered on 07/26/16 23:16; Start 07/26/16 at 22:00; Stop at 21:59; Status DC Furosemide 20 mg 20 mg 1X ONCE IVP Last administered on 07/27/16 11:31; Start 07/27/16 at 09:00; Stop 07/27/16 at 09:01; Status DC Daptomycin 340 mg/ Sodium Chloride 50 ml @ 100 mls/hr Q24H IV Last administered on 07/29/16 15:05; Start 07/27/16 at 13:00; Stop 07/30/16 at 07:25 ; Status DC Piperacillin Sod/ Tazobactam Sod 3.375 gm/Sodium Chloride 50 ml @ 100 mls/hr Q6HRS IV Last administered on 07/30/16 05:30; Start 07/27/16 at 12:30; Stop at 07:25; Status DC Fluconazole/ Sodium Chloride 100 ml @ 100 mls/hr Q24H IV Last administered on 07/28/16 13:32; Start 07/27/16 at 13:00; Stop 07/29/16 at 00:53; Status DC Sodium Chloride 1,000 ml @ 1,000 mls/hr 1X ONCE IV Last administered on 12:34; Start 07/27/16 at 12:30; Stop 07/27/16 at 13:29; Status DC Sodium Chloride 220 meq/Sodium Acetate 90 meq/ Potassium Chloride 30 meq/ Potassium Acetate 15 meq/Potassium Phosphate 10 mmol/ Magnesium Sulfate 45 meq/ Multivitamins/ Minerals 10 ml/ Chromium/Copper/ Manganese/Seleni/ Zn 1 ml/Total Parenteral Nutrition/Amino Acids/Dextrose/ Fat Emuls... 1,920 ml @ 80 mls/hr TPN CONT IV Last administered on 07/27/16 22:38; Start 07/27/16 at 22:00; Stop 07/28/16 at 21:59; Status DC Sodium Chloride (Iv Sodium Chloride 0.9% 1000ml Bag) 1,000 ml @ 45 mls/hr [id number] IV Last administered on 07/28/16 03:24; Start 07/27/16 at 17:00; Stop 07/28/16 at 10:27; Status DC Acetaminophen 650 mg 650 mg PRN Q6HRS PRN [place] fever Last administered on 03:57; Start 07/27/16 at 16:30; Stop 07/29/16 at 08:33; Status DC Sodium Chloride 1,000 ml @ 427.5 mls/ hr Q2H21M IV Last administered on 19:30; Start 07/27/16 at 19:30; Stop 07/27/16 at 23:30; Status DC Sodium Chloride 220 meq/Sodium Acetate 90 meq/ Potassium Chloride 30 meq/ Potassium Acetate 15 meq/Potassium Phosphate 10 mmol/ Magnesium Sulfate 45 meq/ Multivitamins/ Minerals 10 ml/ Chromium/Copper/ Manganese/Seleni/ Zn 1 ml/Total Parenteral Nutrition/Amino Acids/Dextrose/ Fat Emuls... 1,920 ml @ 80 mls/hr TPN CONT IV Last administered on 07/28/16 21:43; Start 07/28/16 at 22:00; Stop 07/29/16 at 21:59; Status DC Micafungin Sodium/ Dextrose (Mycamine) 100 ml @ 100 mls/hr Q24H IV Last administered on 08/13/16 00:14; Start 07/29/16 at 01:00 Lorazepam (Ativan) 0.05 mg PRN Q4HRS PRN IV ANXIETY / AGITATION; Start at 02:30; Stop 07/29/16 at 02:48; Status DC Lorazepam (Ativan) 0.5 mg PRN Q4HRS PRN IV ANXIETY / AGITATION Last administered on 08/13/16 02:40; Start 07/29/16 at 03:00 Acetaminophen (Tylenol) 650 mg PRN Q4HRS PRN [place] MILD PAIN / TEMP; Start at 08:30 Ketorolac Tromethamine (Toradol) 30 mg PRN Q6HRS PRN IV PAIN/FEVER Last administered on 07/30/16 00:50; Start 07/29/16 at 08:30; Stop 07/30/16 at 13:01 ; Status DC Pantoprazole Sodium 40 mg 40 mg DAILYAC IVP Last administered on 08/13/16 08:28 ; Start 07/29/16 at 09:00 Sodium Chloride 1,000 ml @ 45 mls/hr [id number] IV Last administered on 09:17; Start 07/29/16 at 08:45; Stop 07/31/16 at 15:01; Status DC Sodium Chloride/ Sodium Acetate/ Potassium Chloride/ Potassium Acetate/ Potassium Phosphate/ Magnesium Sulfate/ Multivitamins/ Minerals/Chromium/ Copper /Manganese/ Seleni/Zn/Total Parenteral Nutrition/Amino Acids/Dextrose/ Fat Emulsion Intravenous (Sodium Chloride/ Potass... 1,920 ml @ 80 mls/hr TPN CONT IV Last administered on 07/29/16 22:06; Start 07/29/16 at 22:00; Stop at 21:59; Status DC Lidocaine/Sodium Bicarbonate 20 ml 20 ml STK-MED ONCE IJ ; Start 07/29/16 at 13: 13; Stop 07/29/16 at 13:14; Status DC Heparin Sodium/ Sodium Chloride 500 ml @ As Directed STK-MED ONCE .ROUTE ; Start 07/29/16 at 13:13; Stop 07/29/16 at 13:14; Status DC Lidocaine/ Epinephrine (Xylocaine 1%-Epi 1:100,000) 20 ml STK-MED ONCE .ROUTE ; Start 07/29/16 at 13:22; Stop 07/29/16 at 13:23; Status DC Midazolam HCl (Versed) 5 mg STK-MED ONCE .ROUTE ; Start 07/29/16 at 13:32; Stop 07/29/16 at 13:33; Status DC Fentanyl Citrate (Fentanyl 5ml Vial) 250 mcg STK-MED ONCE .ROUTE ; Start at 13:32; Stop 07/29/16 at 13:33; Status DC Heparin Sodium/ Sodium Chloride 1,000 unit 1X ONCE IART Last administered on 13:45; Start 07/29/16 at 13:45; Stop 07/29/16 at 13:48; Status DC Midazolam HCl (Versed) 5 mg 1X ONCE IV Last administered on 07/29/16 13:45; Start 07/29/16 at 13:45; Stop 07/29/16 at 13:48; Status DC Fentanyl Citrate (Fentanyl 5ml Vial) 250 mcg 1X ONCE IV Last administered on 13:45; Start 07/29/16 at 13:45; Stop 07/29/16 at 13:48; Status DC Lidocaine/ Epinephrine 20 ml 20 ml 1X ONCE IJ Last administered on 07/29/16 13:45; Start 07/29/16 at 13:45; Stop 07/29/16 at 13:48; Status DC Sodium Chloride 220 meq/Sodium Acetate 90 meq/ Potassium Chloride 15 meq/ Potassium Acetate 30 meq/Potassium Phosphate 10 mmol/ Magnesium Sulfate 45 meq/ Multivitamins/ Minerals 10 ml/ Chromium/Copper/ Manganese/Seleni/ Zn 1 ml/Total Parenteral Nutrition/Amino Acids/Dextrose/ Fat Emuls... 1,920 ml @ 80 mls/hr TPN CONT IV ; Start 07/30/16 at 22:00; Stop 07/31/16 at 21:59; Status DC Norepinephrine Bitartrate 8 mg/ Sodium Chloride 258 ml @ 1.93 mls/hr 1X ONCE IV Last administered on 07/30/16 11:17; Start 07/30/16 at 11:15; Stop at 15:43; Status DC Norepinephrine Bitartrate/Sodium Chloride (Levophed Vial/ Iv Sodium Chloride 0.9 % 250ml) 258 ml @ 0 mls/hr CONT PRN IV SEE I/O RECORD Last administered on 08/02 19:54; Start 07/30/16 at 11:15; Stop 08/04/16 at 09:29; Status DC Furosemide 60 mg 60 mg 1X ONCE IVP Last administered on 07/30/16 11:14; Start 07/30/16 at 11:15; Stop 07/30/16 at 11:16; Status DC Sodium Chloride 500 ml @ 500 mls/hr Q1H IV Last administered on 07/30/16 17: 04; Start 07/30/16 at 14:30; Stop 07/30/16 at 15:29; Status DC Albumin Human 100 ml @ 100 mls/hr Q8HRS IV Last administered on 07/31/16 05: 37; Start 07/30/16 at 14:30; Stop 07/31/16 at 06:59; Status DC Furosemide/Sodium Chloride (Lasix Drip/Iv Sodium Chloride 0.9% 100ml) 100 ml @ 0 mls/hr CONT PRN IV SEE I/O RECORD Last administered on 07/31/16 03:17; Start 07/30/16 at 14:30; Stop 08/01/16 at 13:19; Status DC Ondansetron HCl (Zofran) 8 mg PRN Q8HRS PRN IV NAUSEA/VOMITING Last administered on 07/30/16 14:38; Start 07/30/16 at 14:30 Sodium Bicarbonate 50 meq 50 meq 1X ONCE IV Last administered on 07/30/16 14: 43; Start 07/30/16 at 14:30; Stop 07/30/16 at 14:31; Status DC Heparin Sodium/ Sodium Chloride 500 ml @ As Directed STK-MED ONCE .ROUTE ; Start 07/30/16 at 14:49; Stop 07/30/16 at 14:50; Status DC Lidocaine HCl 20 ml STK-MED ONCE .ROUTE ; Start 07/30/16 at 14:49; Stop at 14:50; Status DC Midazolam HCl (Versed) 2 mg STK-MED ONCE .ROUTE ; Start 07/30/16 at 15:19; Stop 07/30/16 at 15:20; Status DC Heparin Sodium/ Sodium Chloride 1,000 unit 1X ONCE IART Last administered on 15:44; Start 07/30/16 at 15:45; Stop 07/30/16 at 15:46; Status DC Midazolam HCl (Versed) 1.5 mg 1X ONCE IV Last administered on 07/30/16 15:44 ; Start 07/30/16 at 15:45; Stop 07/30/16 at 15:46; Status DC Lidocaine HCl 20 ml 1X ONCE IJ Last administered on 07/30/16 15:44; Start at 15:45; Stop 07/30/16 at 15:46; Status DC Heparin Sodium (Porcine) 85913 unit 10,000 unit STK-MED ONCE .ROUTE ; Start at 15:54; Stop 07/30/16 at 15:55; Status DC Fentanyl Citrate 30 ml @ 0 mls/hr CONT PRN PRN IV PROTOCOL Last administered on 08/08/16 10:21; Start 07/30/16 at 16:45; Stop 08/08/16 at 11:03; Status DC Sodium Bicarbonate/ Dextrose 1,150 ml @ 125 mls/hr 1X ONCE IV Last administered on 07/30/16 18:34; Start 07/30/16 at 17:30; Stop 07/31/16 at 02:41 ; Status DC Succinylcholine Chloride 200 mg 200 mg STK-MED ONCE .ROUTE ; Start 07/30/16 at 19:47; Stop 07/30/16 at 19:48; Status DC Propofol 100 ml @ As Directed STK-MED ONCE IV ; Start 07/30/16 at 19:48; Stop 07/30/16 at 19:49; Status DC Midazolam HCl (Versed 100mg/ 100ml Premix) 100 ml @ 0 mls/hr CONT PRN IV SEE I/ O RECORD Last administered on 08/03/16 12:18; Start 07/30/16 at 21:15 Sodium Bicarbonate 50 meq 50 meq 1X ONCE IV Last administered on 07/30/16 22: 15; Start 07/30/16 at 22:30; Stop 07/30/16 at 22:31; Status DC Dopamine HCl/ Dextrose 250 ml @ 11.513 mls/ hr CONT PRN IV SEE I/O RECORD Last administered on 07/31/16 20:16; Start 07/30/16 at 22:15; Stop 08/04/16 at 09:29; Status DC Sodium Bicarbonate/ Dextrose 1,150 ml @ 125 mls/hr Q9H12M IV Last administered on 08/01/16 09:30; Start 07/31/16 at 03:00; Stop 08/01/16 at 13:19 ; Status DC Propofol (Diprivan) 1,000 mg STK-MED ONCE IV ; Start 07/30/16 at 20:00; Stop at 08:16; Status DC Succinylcholine Chloride 200 mg 200 mg STK-MED ONCE .ROUTE ; Start 07/30/16 at 20:00; Stop 07/31/16 at 08:16; Status DC Tigecycline 50 mg/ Sodium Chloride 50 ml @ 100 mls/hr Q12HR IV Last administered on 08/04/16 09:01; Start 07/31/16 at 21:00; Stop 08/04/16 at 10:00 ; Status DC Tigecycline/ Sodium Chloride (Tygacil/Iv Sodium Chloride 0.9% 100ml) 100 ml @ 200 mls/hr 1X ONCE IV Last administered on 07/31/16 09:22; Start 07/31/16 at 09:00; Stop 07/31/16 at 09:29; Status DC Darbepoetin Sarbjit 60 mcg 60 mcg [id number] SQ Last administered on 08/07/16 21:41 ; Start 07/31/16 at 21:00 Albumin Human 100 ml @ 100 mls/hr 1X ONCE IV Last administered on 07/31/16 11:40; Start 07/31/16 at 11:15; Stop 07/31/16 at 12:14; Status DC Albumin Human 100 ml @ 100 mls/hr 1X ONCE IV Last administered on 07/31/16 12:03; Start 07/31/16 at 11:15; Stop 07/31/16 at 12:14; Status DC Sodium Chloride (Iv Sodium Chloride 0.9% 1000ml Bag) 1,000 ml @ 1,000 mls/hr Q1H PRN IV hypotension; Start 07/31/16 at 11:33; Stop 07/31/16 at 17:32; Status DC Info (PHARMACY MONITORING -- do not chart) 1 each PRN DAILY PRN MC SEE COMMENTS ; Start 07/31/16 at 11:45 Info (PHARMACY MONITORING -- do not chart) 1 each PRN DAILY PRN MC SEE COMMENTS ; Start 07/31/16 at 11:45; Status UNV Hydrocortisone Sodium Succinate (Solu-Cortef) 100 mg Q8HRS IV Last administered on 08/04/16 06:16; Start 08/01/16 at 07:00; Stop 08/04/16 at 09:29 ; Status DC Albuterol/ Ipratropium (Duoneb) 3 ml RTQID NEB Last administered on 08/13/16 08 :12; Start 08/01/16 at 08:00 Albuterol/ Ipratropium 3 ml 3 ml STK-MED ONCE .ROUTE Last administered on 07:34; Start 08/01/16 at 06:59; Stop 08/01/16 at 07:00; Status DC Sodium Chloride 1,000 ml @ 1,000 mls/hr Q1H PRN IV hypotension; Start 08/01/16 at 06:57; Stop 08/01/16 at 12:56; Status DC Albumin Human (Albuminar) 200 ml @ 200 mls/hr 1X PRN PRN IV Hypotension; Start 08/01/16 at 07:00; Stop 08/01/16 at 12:59; Status DC Info (PHARMACY MONITORING -- do not chart) 1 each PRN DAILY PRN MC SEE COMMENTS ; Start 08/01/16 at 07:00; Status UNV Info 1 each 1 each PRN DAILY PRN MC SEE COMMENTS Last administered on 08/12/16 10:49; Start 08/01/16 at 13:30 Sodium Chloride 220 meq/Sodium Acetate 90 meq/ Potassium Chloride 15 meq/ Potassium Acetate 30 meq/Potassium Phosphate 10 mmol/ Magnesium Sulfate 45 meq/ Multivitamins/ Minerals 10 ml/ Chromium/Copper/ Manganese/Seleni/ Zn 1 ml/Total Parenteral Nutrition/Amino Acids/Dextrose/ Fat Emuls... 1,920 ml @ 80 mls/hr TPN CONT IV Last administered on 08/01/16 21:56; Start 08/01/16 at 22:00; Stop 08/02/16 at 21:59; Status DC Potassium Chloride (KCl Premix 20meq) 50 ml @ 50 mls/hr Q1H IV Last administered on 08/01/16 19:05; Start 08/01/16 at 17:00; Stop 08/01/16 at 18:59 ; Status DC Insulin Aspart 0-6 UNITS TIDWMEALS SQ Last administered on 08/02/16 11:33; Start 08/02/16 at 12:00; Stop 08/02/16 at 14:34; Status DC Sodium Chloride 220 meq/Sodium Acetate 90 meq/ Potassium Chloride 15 meq/ Potassium Acetate 30 meq/Magnesium Sulfate 45 meq/ Multivitamins/ Minerals 10 ml / Chromium/Copper/ Manganese/Seleni/ Zn 1 ml/Total Parenteral Nutrition/Amino Acids/Dextrose/ Fat Emulsion Intravenous 1,920 ml @ 80 mls/hr TPN CONT IV Last administered on 08/02/16 21:34; Start 08/02/16 at 22:00; Stop 08/03/16 at 21:59; Status DC Levofloxacin/ Dextrose 150 ml @ 100 mls/hr 1X ONCE IV Last administered on 14:35; Start 08/02/16 at 14:00; Stop 08/02/16 at 15:29; Status DC Daptomycin/Sodium Chloride (Cubicin/Iv Sodium Chloride 0.9% 50ml) 50 ml @ 100 mls/hr ONCE ONCE IV Last administered on 08/02/16 14:34; Start 08/02/16 at 15 :00; Stop 08/02/16 at 15:29; Status DC Insulin Aspart 0-6 UNITS Q6HRS SQ Last administered on 08/11/16 18:13; Start 08/02/16 at 18:00 Sodium Chloride (Iv Sodium Chloride 0.9% 1000ml Bag) 1,000 ml @ 1,000 mls/hr Q1H PRN IV hypotension; Start 08/03/16 at 07:26; Stop 08/03/16 at 13:25; Status DC Diphenhydramine HCl (Benadryl) 25 mg 1X PRN PRN IV ITCHING; Start 08/03/16 at 07:30; Stop 08/04/16 at 07:29; Status DC Diphenhydramine HCl (Benadryl) 25 mg 1X PRN PRN IV ITCHING; Start 08/03/16 at 07:30; Stop 08/04/16 at 07:29; Status DC Sodium Chloride (Normal Saline Flush) 10 ml 1X PRN PRN IV AP catheter pack; Start 08/03/16 at 07:30; Stop 08/04/16 at 07:29; Status DC Sodium Chloride 10 ml 10 ml 1X PRN PRN IV JUNIOR BOOKKEEPER catheter pack; Start 08/03/16 at 07:30; Stop 08/04/16 at 07:29; Status DC Sodium Chloride (Iv Sodium Chloride 0.9% 1000ml Bag) 1,000 ml @ 400 mls/hr Q2H30M PRN IV PATENCY; Start 08/03/16 at 07:26; Stop 08/03/16 at 19:25; Status DC Info 1 each 1 each PRN DAILY PRN MC SEE COMMENTS; Start 08/03/16 at 07:30; Status UNV Albumin Human 200 ml @ 200 mls/hr Q2HR IV Last administered on 08/03/16 10:00 ; Start 08/03/16 at 08:44; Stop 08/03/16 at 10:59; Status DC Sodium Chloride 160 meq/Sodium Acetate 60 meq/ Potassium Chloride 15 meq/ Potassium Acetate 30 meq/Magnesium Sulfate 25 meq/ Multivitamins/ Minerals 10 ml / Chromium/Copper/ Manganese/Seleni/ Zn 1 ml/Total Parenteral Nutrition/Amino Acids/Dextrose/ Fat Emulsion Intravenous 1,500 ml @ 62.5 mls/hr TPN CONT IV Last administered on 08/03/16 22:52; Start 08/03/16 at 22:00; Stop 08/04/16 at 21:59; Status DC Levofloxacin/ Dextrose 100 ml @ 100 mls/hr 1X ONCE IV Last administered on 10:50; Start 08/04/16 at 07:30; Stop 08/04/16 at 08:30; Status DC Daptomycin 450 mg/ Sodium Chloride 50 ml @ 100 mls/hr ONCE ONCE IV Last administered on 08/04/16 09:55; Start 08/04/16 at 08:00; Stop 08/04/16 at 08:30 ; Status DC Tigecycline/ Sodium Chloride (Tygacil/Iv Sodium Chloride 0.9% 50ml) 50 ml @ 100 mls/hr Q12HR IV Last administered on 08/09/16 07:20; Start 08/04/16 at 21: 00; Stop 08/09/16 at 09:42; Status DC Hydrocortisone Sodium Succinate 50 mg 50 mg Q8HRS IV Last administered on 05:39; Start 08/04/16 at 14:00; Stop 08/05/16 at 11:12; Status DC Furosemide 100 mg/ Sodium Chloride 100 ml @ 0 mls/hr CONT PRN IV SEE I/O RECORD Last administered on 08/09/16 06:43; Start 08/04/16 at 11:30; Stop 08/09 at 11:31; Status DC Sodium Chloride 160 meq/Sodium Acetate 60 meq/ Potassium Chloride 15 meq/ Potassium Acetate 30 meq/Magnesium Sulfate 25 meq/ Multivitamins/ Minerals 10 ml / Chromium/Copper/ Manganese/Seleni/ Zn 1 ml/Total Parenteral Nutrition/Amino Acids/Dextrose/ Fat Emulsion Intravenous 1,500 ml @ 62.5 mls/hr TPN CONT IV Last administered on 08/04/16 21:45; Start 08/04/16 at 22:00; Stop 08/06/16 at 08:48; Status DC Sodium Chloride 1,000 ml @ 1,000 mls/hr Q1H PRN IV hypotension; Start 08/04/16 at 12:00; Stop 08/04/16 at 17:59; Status DC Sodium Chloride (Iv Sodium Chloride 0.9% 1000ml Bag) 1,000 ml @ 400 mls/hr Q2H30M PRN IV PATENCY; Start 08/04/16 at 12:00; Stop 08/04/16 at 23:59; Status DC Info 1 each 1 each PRN DAILY PRN MC SEE COMMENTS; Start 08/04/16 at 16:30; Status UNV Levofloxacin/ Dextrose 100 ml @ 100 mls/hr 1X ONCE IV Last administered on 14:27; Start 08/05/16 at 14:00; Stop 08/05/16 at 14:59; Status DC Daptomycin/Sodium Chloride (Cubicin/Iv Sodium Chloride 0.9% 50ml) 50 ml @ 100 mls/hr 1X ONCE IV Last administered on 08/05/16 14:27; Start 08/05/16 at 14: 00; Stop 08/05/16 at 14:29; Status DC Heparin Sodium (Porcine) 10,000 unit STK-MED ONCE .ROUTE ; Start 08/05/16 at 09: 35; Stop 08/05/16 at 09:36; Status DC Lidocaine/Sodium Bicarbonate 20 ml 20 ml STK-MED ONCE IJ ; Start 08/05/16 at 09: 36; Stop 08/05/16 at 09:37; Status DC Heparin Sodium/ Sodium Chloride 500 ml @ As Directed STK-MED ONCE .ROUTE ; Start 08/05/16 at 09:36; Stop 08/05/16 at 09:37; Status DC Lidocaine/Sodium Bicarbonate (Buffered Lidocaine 1%) 2 ml 1X ONCE IJ Last administered on 08/05/16 10:04; Start 08/05/16 at 10:00; Stop 08/05/16 at 10:02 ; Status DC Heparin Sodium/ Sodium Chloride 60 unit 1X ONCE IV Last administered on 10:04; Start 08/05/16 at 10:00; Stop 08/05/16 at 10:02; Status DC Heparin Sodium (Porcine) 2,800 unit 1X ONCE INT CAT Last administered on 10:04; Start 08/05/16 at 10:00; Stop 08/05/16 at 10:02; Status DC Info (PHARMACY MONITORING -- do not chart) 1 each PRN DAILY PRN MC SEE COMMENTS ; Start 08/05/16 at 10:30; Stop 08/05/16 at 10:30; Status DC Info (PHARMACY MONITORING -- do not chart) 1 each PRN DAILY PRN MC SEE COMMENTS ; Start 08/05/16 at 10:30; Stop 08/05/16 at 10:30; Status DC Hydrocortisone Sodium Succinate 50 mg 50 mg BID IV Last administered on 07:49; Start 08/05/16 at 21:00; Stop 08/07/16 at 10:23; Status DC Sodium Chloride 160 meq/Sodium Acetate 60 meq/ Potassium Chloride 15 meq/ Potassium Acetate 30 meq/Magnesium Sulfate 25 meq/ Multivitamins/ Minerals 10 ml / Chromium/Copper/ Manganese/Seleni/ Zn 1 ml/Total Parenteral Nutrition/Amino Acids/Dextrose/ Fat Emulsion Intravenous 1,500 ml @ 62.5 mls/hr TPN CONT IV Last administered on 08/05/16 22:04; Start 08/05/16 at 22:00; Stop 08/06/16 at 21:59; Status DC Daptomycin 500 mg/ Sodium Chloride 50 ml @ 100 mls/hr Q24H IV Last administered on 08/12/16 18:25; Start 08/06/16 at 14:00; Stop 08/13/16 at 08:23; Status DC Sodium Chloride (Iv Sodium Chloride 0.9% 1000ml Bag) 1,000 ml @ 1,000 mls/hr Q1H PRN IV hypotension; Start 08/06/16 at 08:21; Stop 08/06/16 at 14:20; Status DC Diphenhydramine HCl (Benadryl) 25 mg 1X PRN PRN IV ITCHING; Start 08/06/16 at 08:30; Stop 08/07/16 at 08:29; Status DC Diphenhydramine HCl (Benadryl) 25 mg 1X PRN PRN IV ITCHING; Start 08/06/16 at 08:30; Stop 08/07/16 at 08:29; Status DC Sodium Chloride (Normal Saline Flush) 10 ml 1X PRN PRN IV AP catheter pack; Start 08/06/16 at 08:30; Stop 08/07/16 at 08:29; Status DC Sodium Chloride 10 ml 10 ml 1X PRN PRN IV JUNIOR BOOKKEEPER catheter pack; Start 08/06/16 at 08:30; Stop 08/07/16 at 08:29; Status DC Sodium Chloride (Iv Sodium Chloride 0.9% 1000ml Bag) 1,000 ml @ 400 mls/hr Q2H30M PRN IV PATENCY; Start 08/06/16 at 08:21; Stop 08/06/16 at 20:20; Status DC Info 1 each 1 each PRN DAILY PRN MC SEE COMMENTS; Start 08/06/16 at 08:30; Status UNV Albumin Human 200 ml @ 200 mls/hr 1X STAT IV Last administered on 08/06/16 10:09; Start 08/06/16 at 09:52; Stop 08/06/16 at 10:51; Status DC Sodium Chloride/ Sodium Acetate/ Potassium Chloride/ Potassium Acetate/ Magnesium Sulfate/ Multivitamins/ Minerals/Chromium/ Copper/Manganese/ Seleni/Zn /Total Parenteral Nutrition/Amino Acids/Dextrose/ Fat Emulsion Intravenous ( Sodium Chloride/ Infuvite Adult/ Multitrace-5 Conc/ Tpn - Tpn Flu... 1,500 ml @ 62.5 mls/hr TPN CONT IV Last administered on 08/06/16 21:57; Start at 22:00; Stop 08/07/16 at 21:59; Status DC Darbepoetin Sarbjit 60 mcg 60 mcg [id number] SQ ; Start 08/07/16 at 21:00; Status UNV Potassium Chloride (KCl Premix 20meq) 50 ml @ 50 mls/hr Q1H IV Last administered on 08/07/16 10:46; Start 08/07/16 at 08:00; Stop 08/07/16 at 09:59 ; Status DC Hydrocortisone Sodium Succinate 25 mg 25 mg BID IV ; Start 08/07/16 at 21:00; Stop 08/07/16 at 21:00; Status DC Sodium Chloride (Iv Sodium Chloride 0.9% 1000ml Bag) 1,000 ml @ 1,000 mls/hr Q1H PRN IV hypotension; Start 08/07/16 at 12:08; Stop 08/07/16 at 18:07; Status DC Diphenhydramine HCl (Benadryl) 25 mg 1X PRN PRN IV ITCHING; Start 08/07/16 at 12:15; Stop 08/08/16 at 12:14; Status DC Diphenhydramine HCl (Benadryl) 25 mg 1X PRN PRN IV ITCHING; Start 08/07/16 at 12:15; Stop 08/08/16 at 12:14; Status DC Sodium Chloride (Normal Saline Flush) 10 ml 1X PRN PRN IV AP catheter pack; Start 08/07/16 at 12:15; Stop 08/08/16 at 12:14; Status DC Sodium Chloride (Normal Saline Flush) 10 ml 1X PRN PRN IV JUNIOR BOOKKEEPER catheter pack; Start 08/07/16 at 12:15; Stop 08/08/16 at 12:14; Status DC Info (PHARMACY MONITORING -- do not chart) 1 each PRN DAILY PRN MC SEE COMMENTS ; Start 08/07/16 at 12:15; Status UNV Info 1 each 1 each PRN DAILY PRN MC SEE COMMENTS; Start 08/07/16 at 12:15; Status UNV Sodium Chloride 160 meq/Sodium Acetate 60 meq/ Potassium Chloride 55 meq/ Potassium Acetate 30 meq/Magnesium Sulfate 25 meq/ Multivitamins/ Minerals 10 ml / Chromium/Copper/ Manganese/Seleni/ Zn 1 ml/Total Parenteral Nutrition/Amino Acids/Dextrose/ Fat Emulsion Intravenous 1,500 ml @ 62.5 mls/hr TPN CONT IV Last administered on 08/07/16 21:41; Start 08/07/16 at 22:00; Stop 08/08/16 at 21:59; Status DC Potassium Chloride (KCl Premix 20meq) 50 ml @ 50 mls/hr 1X ONCE IV Last administered on 08/08/16 09:04; Start 08/08/16 at 10:00; Stop 08/08/16 at 10:59 ; Status DC Fentanyl Citrate 25 mcg 25 mcg PRN Q4HRS PRN IV PAIN Last administered on 09:23; Start 08/08/16 at 11:00 Potassium Chloride 50 ml @ 50 mls/hr 1X ONCE IV Last administered on 15:33; Start 08/08/16 at 11:15; Stop 08/08/16 at 12:14; Status DC Sodium Chloride 140 meq/Sodium Acetate 60 meq/ Potassium Chloride 70 meq/ Potassium Acetate 30 meq/Magnesium Sulfate 25 meq/ Multivitamins/ Minerals 10 ml / Chromium/Copper/ Manganese/Seleni/ Zn 1 ml/Total Parenteral Nutrition/Amino Acids/Dextrose/ Fat Emulsion Intravenous 1,500 ml @ 62.5 mls/hr TPN CONT IV Last administered on 08/08/16 21:42; Start 08/08/16 at 22:00; Stop 08/09/16 at 11:30; Status DC Tigecycline 50 mg/ Sodium Chloride 50 ml @ 100 mls/hr Q12HR IV ; Start at 09:42; Stop 08/09/16 at 10:03; Status DC Dextrose 1,000 ml @ 80 mls/hr [id number] IV ; Start 08/09/16 at 11:45; Stop at 11:57; Status DC Dextrose/Sodium Chloride 1,000 ml @ 50 mls/hr Q20H IV Last administered on 12:22; Start 08/09/16 at 12:00; Stop 08/10/16 at 10:09; Status DC Sodium Chloride 10 meq/Sodium Acetate 10 meq/ Potassium Chloride 40 meq/ Potassium Acetate 10 meq/Magnesium Sulfate 15 meq/ Multivitamins/ Minerals 10 ml / Chromium/Copper/ Manganese/Seleni/ Zn 1 ml/Total Parenteral Nutrition/Amino Acids/Dextrose/ Fat Emulsion Intravenous 1,512 ml @ 63 mls/hr TPN CONT IV Last administered on 08/10/16 10:44; Start 08/09/16 at 22:00; Stop 08/10/16 at 21:59; Status DC Dextrose 1,000 ml @ 100 mls/hr Q10H IV Last administered on 08/10/16 10:37; Start 08/10/16 at 10:15; Stop 08/10/16 at 13:48; Status DC Potassium Chloride 50 ml @ 50 mls/hr 1X ONCE IV Last administered on 10:39; Start 08/10/16 at 10:30; Stop 08/10/16 at 11:29; Status DC Dextrose 1,000 ml @ 100 mls/hr Q10H IV Last administered on 08/13/16 05:12; Start 08/10/16 at 14:00 Potassium Chloride 40 meq/ Potassium Acetate 10 meq/Magnesium Sulfate 15 meq/ Multivitamins/ Minerals 10 ml/ Chromium/Copper/ Manganese/Seleni/ Zn 1 ml/Total Parenteral Nutrition/Amino Acids/Dextrose/ Fat Emulsion Intravenous 1,512 ml @ 63 mls/hr TPN CONT IV Last administered on 08/10/16 22:13; Start 08/10/16 at 22:00; Stop 08/11/16 at 21:59; Status DC Potassium Chloride 50 ml @ 50 mls/hr Q1H IV Last administered on 08/11/16 13: 05; Start 08/11/16 at 11:00; Stop 08/11/16 at 12:59; Status DC Potassium Chloride 20 meq/ Potassium Acetate 30 meq/Magnesium Sulfate 15 meq/ Multivitamins/ Minerals 10 ml/ Chromium/Copper/ Manganese/Seleni/ Zn 1 ml/Total Parenteral Nutrition/Amino Acids/Dextrose/ Fat Emulsion Intravenous 1,512 ml @ 63 mls/hr TPN CONT IV Last administered on 08/11/16 21:31; Start 08/11/16 at 22:00; Stop 08/12/16 at 21:59; Status DC Potassium Chloride/ Potassium Acetate/ Magnesium Sulfate/ Multivitamins/ Minerals/Chromium/ Copper/Manganese/ Seleni/Zn/Total Parenteral Nutrition/Amino Acids/Dextrose/ Fat Emulsion Intravenous (Infuvite Adult/ Multitrace-5 Conc/ Tpn - Tpn Fluid/ Dextrose 70%-Water Iv Soln/ Intralipid 20%) 1,512 ml @ 63 mls/ hr TPN CONT IV Last administered on 3/1/17at 21:27; Start 08/12/16 at 22:00 Active Scripts Active Dilaudid (Hydromorphone Hcl) 4 Mg Tablet 4 Mg PO Q6HRS Phenazopyridine Hcl 200 Mg Tablet 200 Mg PO PRN TID PRN FENTANYL 50mcg/hr (Fentanyl) 1 Each Patch.td72 1 Patch TD Q3DAYS Anaspaz (Hyoscyamine Sulfate) 0.125 Mg Tab.rapdis 0.125 Mg PO Q6HRS PRN Cefpodoxime Proxetil 200 Mg Tablet 200 Mg PO BID Sertraline Hcl 50 Mg Tablet 100 Mg PO DAILY 30 Days Protonix (Pantoprazole Sodium) 40 Mg Tablet.dr 1 Tab PO DAILY Zinc Oxide 56.7 Gm Oint...g. 1 Sang TP BID Lidocaine 35.44 Gm Oint...g. 1 Sang TP BID Ondansetron Odt (Ondansetron) 4 Mg Tab.rapdis 8 Mg PO PRN Q8HRS PRN Gas-X (Simethicone) 80 Mg Tab.chew 80 Mg PO PRN QID PRN Reported Lorazepam 0.5 Mg Tablet 0.5 Mg PO PRN BID PRN Vitals/I & O Vital Sign - Last 24 Hours 08/12/16 08/12/16 08/12/16 08/12/16 12:00 14:00 14:00 14:30 Pulse 84 Resp 24 B/P 140/73 Pulse Ox 100 100 O2 Delivery Room Air Room Air Room Air O2 Flow Rate 2.0 2.0 08/12/16 08/12/16 08/12/16 08/12/16 16:00 16:00 16:02 18:25 Pulse 84 Resp 24 B/P 139/68 Pulse Ox 100 100 100 O2 Delivery Room Air Room Air Room Air Room Air O2 Flow Rate 2.0 08/12/16 08/12/16 08/12/16 08/12/16 20:00 20:00 20:28 22:44 Temp 98.2 98.2 Pulse 65 Resp 17 22 B/P 100/60 Pulse Ox 100 100 100 O2 Delivery Room Air Room Air Room Air Room Air 08/12/16 08/13/16 08/13/16 08/13/16 23:59 02:41 03:15 04:00 Temp 98.3 98.2 98.3 98.2 Pulse 77 79 Resp 18 18 16 21 B/P 119/62 119/67 Pulse Ox 100 100 100 100 O2 Delivery Room Air Room Air Room Air Room Air 08/13/16 08/13/16 08/13/16 08:00 08:00 08:13 Temp 98.3 98.3 Pulse 86 Resp 17 B/P 126/72 Pulse Ox 100 100 O2 Delivery Room Air Room Air Room Air Intake and Output 08/12/16 08/12/16 08/13/16 15:00 23:00 07:00 Intake Total 30 ml 4600 ml Output Total 1375 ml 900 ml Balance 30 ml -1375 ml 3700 ml BENITA LUTZ MD Aug 13, 2016 11:25
[2016-08-13] MEDS ORDERED: HYDROMORPHONE 2 MG/ML VIAL. IV PRN (11:30)
--- NOTE | 2016-08-13 11:33 | DISCH ---
DISCHARGE INSTRUCTIONS Condition on Discharge Condition on Discharge: Stable Activity After Discharge Activity Instructions for Disc: Resume previous activity Diet after Discharge Diet after Discharge: Regular Additional Diet Restrictions: npo. Contacting the [facility] after DC Call your doctor for: If your condition worsens Follow-Up Follow up with: dr. lutz at [facility] BENITA LUTZ MD Aug 13, 2016 11:33
--- NOTE | 2016-08-13 11:33 | PDOC ---
PROGRESS NOTES Subjective Subjective c/c - f/u of DIC ROS - -no bleed Objective Objective Vital Signs Date Time Temp Pulse Resp B/P Pulse Ox O2 Delivery O2 Flow Rate FiO2 08/13/16 08:13 100 Room Air 08/13/16 08:00 98.3 86 17 126/72 98.3 08/12/16 18:25 2.0 Intake and Output 08/13/16 07:00 Intake Total 4630 ml Output Total 2275 ml Balance 2355 ml Intake Oral 60 ml IV Total 4570 ml Output Urine Total 1700 ml Drainage Total 575 ml Physical Exam Heart: Normal S1, Normal S2 Lungs: Clear to auscultation Assessment Assessment Problems Medical Problems: (1) Abdominal pain Status: Acute (2) Enterocutaneous fistula Status: Acute (3) Sepsis Status: Acute (4) Severe sepsis with septic shock Status: Acute (5) Urinary tract infection Status: Acute (6) UTI (urinary tract infection) Status: Acute IMPRESSION AND PLAN: 1. DIC - Thrombocytopenia secondary to sepsis. In addition, there is evidence of elevated PT, PTT and decreased fibrinogen which is suggestive of disseminated intravascular coagulation. s/p cryoprecipitate infusion 08/05 and 08/06/16 and . Fibrinogen level improved to 231. No bleeding. plt 218. 2. Anemia secondary to sepsis,disseminated intravascular coagulation, hemoglobin 8.4. Continue to monitor. 3. Sepsis, Judi glabrata positive. Appreciate ID management. 4. 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 5. Respiratory failure. extubated 08/10/16. Comment Review of Relevant I have reviewed the following items lucila (where applicable) has been applied. Labs Laboratory Tests Test 08/11/16 11:43 08/11/16 18:08 08/12/16 00:10 08/12/16 05:50 Glucose (Fingerstick) 158mg/dL (70-99) 174mg/dL (70-99) 164mg/dL (70-99) 133mg/dL (70-99) White Blood Count 5.0x10^3/uL (4.0-11.0) Red Blood Count 3.15x10^6/uL (3.50-5.40) Hemoglobin 8.5g/dL (12.0-15.5) Hematocrit 26.7% (36.0-47.0) Mean Corpuscular Volume 85fL (79-100) Mean Corpuscular Hemoglobin 27pg (25-35) Mean Corpuscular Hemoglobin Concent 32g/dL (31-37) Red Cell Distribution Width 24.7% (11.5-14.5) Platelet Count 137x10^3/uL (140-400) Neutrophils (%) (Auto) 55% (31-73) Lymphocytes (%) (Auto) 28% (24-48) Monocytes (%) (Auto) 11% (0-9) Eosinophils (%) (Auto) 5% (0-3) Basophils (%) (Auto) 1% (0-3) Neutrophils # (Auto) 2.8x10^3uL (1.8-7.7) Lymphocytes # (Auto) 1.4x10^3/uL (1.0-4.8) Monocytes # (Auto) 0.6x10^3/uL (0.0-1.1) Eosinophils # (Auto) 0.2x10^3/uL (0.0-0.7) Basophils # (Auto) 0.1x10^3/uL (0.0-0.2) Sodium Level 145mmol/L (136-145) Potassium Level 3.6mmol/L (3.5-5.1) Chloride Level 107mmol/L (98-107) Carbon Dioxide Level 28mmol/L (21-32) Anion Gap 10 (6-14) Blood Urea Nitrogen 33mg/dL (7-20) Creatinine 0.7mg/dL (0.6-1.0) Estimated GFR (Cockcroft-Gault) 102.9 Glucose Level 143mg/dL (70-99) Calcium Level 9.2mg/dL (8.5-10.1) Test 08/12/16 19:15 08/13/16 00:14 08/13/16 05:16 08/13/16 05:20 Glucose (Fingerstick) 109mg/dL (70-99) 153mg/dL (70-99) 129mg/dL (70-99) White Blood Count 5.6x10^3/uL (4.0-11.0) Red Blood Count 3.07x10^6/uL (3.50-5.40) Hemoglobin 8.4g/dL (12.0-15.5) Hematocrit 25.6% (36.0-47.0) Mean Corpuscular Volume 84fL (79-100) Mean Corpuscular Hemoglobin 27pg (25-35) Mean Corpuscular Hemoglobin Concent 33g/dL (31-37) Red Cell Distribution Width 25.6% (11.5-14.5) Platelet Count 218x10^3/uL (140-400) Neutrophils (%) (Auto) 54% (31-73) Lymphocytes (%) (Auto) 25% (24-48) Monocytes (%) (Auto) 13% (0-9) Eosinophils (%) (Auto) 4% (0-3) Basophils (%) (Auto) 3% (0-3) Neutrophils # (Auto) 3.0x10^3uL (1.8-7.7) Lymphocytes # (Auto) 1.4x10^3/uL (1.0-4.8) Monocytes # (Auto) 0.7x10^3/uL (0.0-1.1) Eosinophils # (Auto) 0.2x10^3/uL (0.0-0.7) Basophils # (Auto) 0.2x10^3/uL (0.0-0.2) Sodium Level 135mmol/L (136-145) Potassium Level 3.3mmol/L (3.5-5.1) Chloride Level 103mmol/L (98-107) Carbon Dioxide Level 23mmol/L (21-32) Anion Gap 9 (6-14) Blood Urea Nitrogen 29mg/dL (7-20) Creatinine 0.6mg/dL (0.6-1.0) Estimated GFR (Cockcroft-Gault) 123.0 Glucose Level 132mg/dL (70-99) Calcium Level 8.9mg/dL (8.5-10.1) Phosphorus Level 2.1mg/dL (2.6-4.7) Magnesium Level 1.6mg/dL (1.8-2.4) Laboratory Tests Test 08/12/16 19:15 08/13/16 00:14 08/13/16 05:16 08/13/16 05:20 Glucose (Fingerstick) 109mg/dL (70-99) 153mg/dL (70-99) 129mg/dL (70-99) White Blood Count 5.6x10^3/uL (4.0-11.0) Red Blood Count 3.07x10^6/uL (3.50-5.40) Hemoglobin 8.4g/dL (12.0-15.5) Hematocrit 25.6% (36.0-47.0) Mean Corpuscular Volume 84fL (79-100) Mean Corpuscular Hemoglobin 27pg (25-35) Mean Corpuscular Hemoglobin Concent 33g/dL (31-37) Red Cell Distribution Width 25.6% (11.5-14.5) Platelet Count 218x10^3/uL (140-400) Neutrophils (%) (Auto) 54% (31-73) Lymphocytes (%) (Auto) 25% (24-48) Monocytes (%) (Auto) 13% (0-9) Eosinophils (%) (Auto) 4% (0-3) Basophils (%) (Auto) 3% (0-3) Neutrophils # (Auto) 3.0x10^3uL (1.8-7.7) Lymphocytes # (Auto) 1.4x10^3/uL (1.0-4.8) Monocytes # (Auto) 0.7x10^3/uL (0.0-1.1) Eosinophils # (Auto) 0.2x10^3/uL (0.0-0.7) Basophils # (Auto) 0.2x10^3/uL (0.0-0.2) Sodium Level 135mmol/L (136-145) Potassium Level 3.3mmol/L (3.5-5.1) Chloride Level 103mmol/L (98-107) Carbon Dioxide Level 23mmol/L (21-32) Anion Gap 9 (6-14) Blood Urea Nitrogen 29mg/dL (7-20) Creatinine 0.6mg/dL (0.6-1.0) Estimated GFR (Cockcroft-Gault) 123.0 Glucose Level 132mg/dL (70-99) Calcium Level 8.9mg/dL (8.5-10.1) Phosphorus Level 2.1mg/dL (2.6-4.7) Magnesium Level 1.6mg/dL (1.8-2.4) Microbiology 08/01/16 Blood Culture - Final, Complete NO GROWTH AFTER 5 DAYS 07/15/16 Urine Culture - Final, Complete 07/15/16 Urine Culture Result 1 (ROYA) - Final, Complete 07/15/16 Urine Culture Result 2 (ROYA) - Final, Complete 07/15/16 Antimicrobic Susceptibility - Final, Complete 07/29/16 Aerobic Culture - Final, Complete 07/29/16 Aerobic Culture Result 1 (ROYA) - Final, Complete Medications Current Medications Piperacillin Sod/ Tazobactam Sod/ Sodium Chloride (Zosyn/Iv Sodium Chloride 0.9 % 100ml) 100 ml @ 200 mls/hr 1X ONCE IV Last administered on 07/15/16 22:56; Start 07/15/16 at 22:00; Stop 07/15/16 at 22:29; Status DC Fentanyl Citrate 50 mcg 50 mcg PRN Q15MIN PRN IV PAIN GREATER THAN 3/10 Last administered on 07/16/16 00:30; Start 07/15/16 at 21:45; Stop 07/16/16 at 02:00; Status DC Sodium Chloride 1,000 ml @ 1,000 mls/hr 1X ONCE IV Last administered on 21:59; Start 07/15/16 at 22:00; Stop 07/15/16 at 22:59; Status DC Sodium Chloride (Iv Sodium Chloride 0.9% 500ml Bag) 500 ml @ 500 mls/hr 1X ONCE IV Last administered on 07/15/16 22:00; Start 07/15/16 at 22:00; Stop at 22:59; Status DC Ondansetron HCl (Zofran) 4 mg PRN Q8HRS PRN IV NAUSEA/VOMITING; Start 07/15/16 at 23:30; Stop 07/16/16 at 08:52; Status DC Fentanyl Citrate 50 mcg 50 mcg PRN Q2HR PRN IV SEVERE PAIN Last administered on 07/16/16 08:10; Start 07/15/16 at 23:30; Stop 07/16/16 at 08:52; Status DC Sodium Chloride (Iv Sodium Chloride 0.9% 1000ml Bag) 1,000 ml @ 150 mls/hr Q6H40M IV Last administered on 07/15/16 02:00; Start 07/15/16 at 23:45; Stop 07/16/16 at 08:52; Status DC Acetaminophen (Tylenol) 650 mg PRN Q4HRS PRN PO FEVER; Start 07/15/16 at 23:30; Stop 07/16/16 at 23:29; Status DC Info (Do NOT chart on this placeholder) 1 each PRN DAILY PRN MC NEEDS VERIFICATION; Start 07/16/16 at 03:00; Status Cancel Acetaminophen 650 mg 650 mg PRN Q4HRS PRN PO MILD PAIN / TEMP Last administered on 07/28/16 07:42; Start 07/16/16 at 08:45; Stop 07/29/16 at 08:33 ; Status DC Piperacillin Sod/ Tazobactam Sod 3.375 gm/Sodium Chloride 50 ml @ 100 mls/hr Q6HRS IV Last administered on 07/18/16 05:50; Start 07/16/16 at 10:00; Stop 07/18 at 13:28; Status DC Linezolid (Zyvox Premix) 300 ml @ 300 mls/hr Q12HR IV Last administered on 07/18 08:34; Start 07/16/16 at 10:00; Stop 07/18/16 at 13:28; Status DC Hydromorphone HCl (Dilaudid) 2 mg PRN Q4HRS PRN IV MODERATE PAIN Last administered on 08/09/16 06:39; Start 07/16/16 at 08:45; Stop 08/09/16 at 17:35 ; Status DC Hydromorphone HCl (Dilaudid) 4 mg PRN Q4HRS PRN IV SEVERE PAIN Last administered on 07/30/16 09:23; Start 07/16/16 at 08:45; Stop 07/31/16 at 15:01 ; Status DC Pantoprazole Sodium (Protonix) 40 mg DAILYAC PO Last administered on 07/27/16 11:11; Start 07/16/16 at 09:30; Stop 07/29/16 at 08:44; Status DC Hyoscyamine (Anaspaz) 0.125 mg Q6HRS PO Last administered on 07/20/16 05:20; Start 07/16/16 at 12:00; Stop 07/20/16 at 08:58; Status DC Phenazopyridine HCl (Pyridium) 200 mg TID PO Last administered on 07/20/16 08: 25; Start 07/16/16 at 09:30; Stop 07/20/16 at 08:58; Status DC Lorazepam (Ativan) 0.5 mg PRN BID PRN PO ANXIETY / AGITATION Last administered on 07/29/16 02:16; Start 07/16/16 at 08:45; Stop 07/31/16 at 15:01; Status DC Simethicone (Gas-X) 80 mg PRN Q4HRS PRN PO GAS / BLOATING Last administered on 07/24/16 22:30; Start 07/16/16 at 08:45; Stop 07/31/16 at 15:01; Status DC Zolpidem Tartrate 5 mg 5 mg PRN QHS PRN PO INSOMNIA Last administered on 23:14; Start 07/16/16 at 08:45; Stop 07/31/16 at 15:01; Status DC Potassium Chloride/Dextrose/ Sod Cl 1,000 ml @ 80 mls/hr [id number] IV Last administered on 07/16/16 10:54; Start 07/16/16 at 09:30; Stop 07/16/16 at 21:59; Status DC Fluconazole/ Sodium Chloride (Diflucan 200mg/ 100ml Premix) 100 ml @ 100 mls/ hr Q24H IV Last administered on 07/18/16 11:43; Start 07/16/16 at 11:00; Stop at 13:28; Status DC Info 1 each 1 each PRN DAILY PRN MC SEE COMMENTS Last administered on 12:41; Start 07/16/16 at 10:00; Stop 08/01/16 at 11:24; Status DC Sodium Chloride 220 meq/Sodium Acetate 90 meq/ Potassium Chloride 50 meq/ Potassium Acetate 15 meq/Potassium Phosphate 10 mmol/ Magnesium Sulfate 50 meq/ Calcium Gluconate 6 meq/ Multivitamins/ Minerals 10 ml/ Chromium/Copper/ Manganese/Seleni/ Zn 1 ml/Total Parenteral Nutrition/Amino Acids/Dextro... 1, 920 ml @ 80 mls/hr TPN CONT IV ; Start 07/16/16 at 22:00; Stop 07/16/16 at 22:00 ; Status DC Sodium Chloride/ Sodium Acetate/ Potassium Chloride/ Potassium Acetate/ Potassium Phosphate/ Magnesium Sulfate/ Calcium Gluconate/ Multivitamins/ Minerals/Chromium/ Copper/Manganese/ Seleni/Zn/Total Parenteral Nutrition/Amino Acids/Dextrose/ Fat Emulsion Intravenous (Sodium Chlori... 1,820 ml @ 75.833 mls/ hr TPN CONT IV Last administered on 07/16/16 21:03; Start 07/16/16 at 22: 00; Stop 07/17/16 at 21:59; Status DC Ondansetron HCl (Zofran) 4 mg PRN Q6HRS PRN IV NAUSEA/VOMITING Last administered on 07/21/16 08:48; Start 07/16/16 at 17:15; Stop 07/31/16 at 15:01; Status DC Diphenhydramine HCl (Benadryl) 25 mg PRN Q6HRS PRN PO ITCHING Last administered on 07/25/16 23:38; Start 07/16/16 at 17:45; Stop 07/31/16 at 15:01 ; Status DC Lidocaine (Xylocaine) 1 sang BID TP Last administered on 08/13/16 08:29; Start 07/17/16 at 09:00 Zinc Oxide 1 sang 1 sang BID TP Last administered on 08/13/16 08:29; Start at 09:30 Sodium Chloride/ Sodium Acetate/ Potassium Chloride/ Potassium Acetate/ Potassium Phosphate/ Magnesium Sulfate/ Calcium Gluconate/ Multivitamins/ Minerals/Chromium/ Copper/Manganese/ Seleni/Zn/Total Parenteral Nutrition/Amino Acids/Dextrose/ Fat Emulsion Intravenous (Sodium Chlori... 1,920 ml @ 80 mls/ hr TPN CONT IV Last administered on 07/17/16 22:13; Start 07/17/16 at 22:00; Stop 07/18/16 at 21:59; Status DC Furosemide 40 mg 40 mg 1X ONCE IVP Last administered on 07/18/16 11:43; Start 07/18/16 at 11:00; Stop 07/18/16 at 11:07; Status DC Sodium Chloride 220 meq/Sodium Acetate 90 meq/ Potassium Chloride 50 meq/ Potassium Acetate 15 meq/Potassium Phosphate 10 mmol/ Magnesium Sulfate 50 meq/ Calcium Gluconate 3 meq/ Multivitamins/ Minerals 10 ml/ Chromium/Copper/ Manganese/Seleni/ Zn 1 ml/Total Parenteral Nutrition/Amino Acids/Dextro... 1, 920 ml @ 80 mls/hr TPN CONT IV Last administered on 07/19/16 00:03; Start 07/18/16 at 22:00; Stop 07/19/16 at 21:59; Status DC Meropenem 1 gm/ Sodium Chloride 100 ml @ 200 mls/hr Q8HRS IV Last administered on 07/20/16 05:21; Start 07/18/16 at 14:00; Stop 07/20/16 at 11:25; Status DC Micafungin Sodium 100 mg/Dextrose 100 ml @ 100 mls/hr Q24H IV Last administered on 07/19/16 15:05; Start 07/18/16 at 14:00; Stop 07/20/16 at 11:25; Status DC Daptomycin/Sodium Chloride (Cubicin/Iv Sodium Chloride 0.9% 50ml) 50 ml @ 100 mls/hr Q24H IV Last administered on 07/19/16 16:56; Start 07/18/16 at 15:00; Stop 07/20/16 at 11:25; Status DC Alteplase, Recombinant (Cathflo) 2 mg 1X ONCE INT CAT Last administered on 07/19 06:24; Start 07/19/16 at 07:00; Stop 07/19/16 at 07:01; Status DC Gentamicin Sulfate 1 each 1 each PRN DAILY PRN MC SEE COMMENTS Last administered on 07/25/16 15:31; Start 07/19/16 at 12:15; Stop 07/25/16 at 16:14 ; Status DC Gentamicin Sulfate/Sodium Chloride (Iv Sodium Chloride 0.9% 100ml) 106.75 ml @ 106.75 mls/hr Q24H IV Last administered on 07/25/16 15:31; Start 07/19/16 at 13 :00; Stop 07/25/16 at 16:12; Status DC Gentamicin Sulfate 1 each 1 each 1X ONCE MC Last administered on 07/19/16 23: 00; Start 07/19/16 at 23:00; Stop 07/19/16 at 23:01; Status DC Sodium Chloride/ Sodium Acetate/ Potassium Chloride/ Potassium Acetate/ Potassium Phosphate/ Magnesium Sulfate/ Calcium Gluconate/ Multivitamins/ Minerals/Chromium/ Copper/Manganese/ Seleni/Zn/Total Parenteral Nutrition/Amino Acids/Dextrose/ Fat Emulsion Intravenous (Sodium Chlori... 1,920 ml @ 80 mls/ hr TPN CONT IV Last administered on 07/19/16 20:51; Start 07/19/16 at 22:00; Stop 07/20/16 at 21:59; Status DC Hyoscyamine (Anaspaz) 0.125 mg PRN Q6HRS PRN PO BLADDER SPASM; Start 07/20/16 at 09:00; Stop 07/31/16 at 15:01; Status DC Phenazopyridine HCl 200 mg 200 mg PRN TID PRN PO BLADDER SPASM Last administered on 07/21/16 20:14; Start 07/20/16 at 09:00; Stop 07/31/16 at 15:01; Status DC Linezolid 300 ml @ 300 mls/hr Q12HR IV Last administered on 07/25/16 09:02; Start 07/20/16 at 12:00; Stop 07/25/16 at 16:12; Status DC Sodium Chloride 220 meq/Sodium Acetate 90 meq/ Potassium Chloride 50 meq/ Potassium Acetate 15 meq/Potassium Phosphate 10 mmol/ Magnesium Sulfate 50 meq/ Calcium Gluconate 3 meq/ Multivitamins/ Minerals 10 ml/ Chromium/Copper/ Manganese/Seleni/ Zn 1 ml/Total Parenteral Nutrition/Amino Acids/Dextro... 1, 920 ml @ 80 mls/hr TPN CONT IV Last administered on 07/20/16 21:30; Start 07/20/16 at 22:00; Stop 07/21/16 at 21:59; Status DC Sodium Chloride/ Sodium Acetate/ Potassium Chloride/ Potassium Acetate/ Potassium Phosphate/ Magnesium Sulfate/ Multivitamins/ Minerals/Chromium/ Copper /Manganese/ Seleni/Zn/Total Parenteral Nutrition/Amino Acids/Dextrose/ Fat Emulsion Intravenous (Sodium Chloride/ Potass... 1,920 ml @ 80 mls/hr TPN CONT IV Last administered on 07/21/16 22:05; Start 07/21/16 at 22:00; Stop at 21:59; Status DC Alteplase, Recombinant 2 mg 2 mg PRN DAILY PRN INT CAT INFLAMMATION Last administered on 07/27/16 11:31; Start 07/21/16 at 15:00 Sodium Chloride 220 meq/Sodium Acetate 90 meq/ Potassium Chloride 50 meq/ Potassium Acetate 15 meq/Potassium Phosphate 10 mmol/ Magnesium Sulfate 50 meq/ Multivitamins/ Minerals 10 ml/ Chromium/Copper/ Manganese/Seleni/ Zn 1 ml/Total Parenteral Nutrition/Amino Acids/Dextrose/ Fat Emuls... 1,920 ml @ 80 mls/hr TPN CONT IV Last administered on 07/22/16 20:53; Start 07/22/16 at 22:00; Stop 07/23/16 at 21:59; Status DC Sodium Chloride/ Sodium Acetate/ Potassium Chloride/ Potassium Acetate/ Potassium Phosphate/ Magnesium Sulfate/ Multivitamins/ Minerals/Chromium/ Copper /Manganese/ Seleni/Zn/Total Parenteral Nutrition/Amino Acids/Dextrose/ Fat Emulsion Intravenous (Sodium Chloride/ Potass... 1,920 ml @ 80 mls/hr TPN CONT IV Last administered on 07/23/16 21:16; Start 07/23/16 at 22:00; Stop 07/24 at 21:59; Status DC Gentamicin Sulfate 1 each 1 each 1X ONCE MC ; Start 07/23/16 at 22:00; Stop 07/23 at 22:01; Status Cancel Sodium Chloride/ Sodium Acetate/ Potassium Chloride/ Potassium Acetate/ Potassium Phosphate/ Magnesium Sulfate/ Multivitamins/ Minerals/Chromium/ Copper /Manganese/ Seleni/Zn/Total Parenteral Nutrition/Amino Acids/Dextrose/ Fat Emulsion Intravenous (Sodium Chloride/ Potass... 1,920 ml @ 80 mls/hr TPN CONT IV Last administered on 07/24/16 21:15; Start 07/24/16 at 22:00; Stop 04/30 at 21:59; Status DC Gentamicin Sulfate 1 each 1X ONCE MC ; Start 07/25/16 at 12:30; Stop 07/25/16 at 12:31; Status Cancel Amlodipine Besylate 5 mg 5 mg DAILY PO Last administered on 07/27/16 11:12; Start 07/25/16 at 12:00; Stop 07/29/16 at 08:44; Status DC Sodium Chloride 220 meq/Sodium Acetate 90 meq/ Potassium Chloride 30 meq/ Potassium Acetate 15 meq/Potassium Phosphate 10 mmol/ Magnesium Sulfate 50 meq/ Multivitamins/ Minerals 10 ml/ Chromium/Copper/ Manganese/Seleni/ Zn 1 ml/Total Parenteral Nutrition/Amino Acids/Dextrose/ Fat Emuls... 1,920 ml @ 80 mls/hr TPN CONT IV Last administered on 07/25/16 22:25; Start 07/25/16 at 22:00; Stop 07/26/16 at 21:59; Status DC Sodium Chloride/ Sodium Acetate/ Potassium Chloride/ Potassium Acetate/ Potassium Phosphate/ Magnesium Sulfate/ Multivitamins/ Minerals/Chromium/ Copper /Manganese/ Seleni/Zn/Total Parenteral Nutrition/Amino Acids/Dextrose/ Fat Emulsion Intravenous (Sodium Chloride/ Potass... 1,920 ml @ 80 mls/hr TPN CONT IV Last administered on 07/26/16 23:16; Start 07/26/16 at 22:00; Stop at 21:59; Status DC Furosemide 20 mg 20 mg 1X ONCE IVP Last administered on 07/27/16 11:31; Start 07/27/16 at 09:00; Stop 07/27/16 at 09:01; Status DC Daptomycin 340 mg/ Sodium Chloride 50 ml @ 100 mls/hr Q24H IV Last administered on 07/29/16 15:05; Start 07/27/16 at 13:00; Stop 07/30/16 at 07:25 ; Status DC Piperacillin Sod/ Tazobactam Sod 3.375 gm/Sodium Chloride 50 ml @ 100 mls/hr Q6HRS IV Last administered on 07/30/16 05:30; Start 07/27/16 at 12:30; Stop at 07:25; Status DC Fluconazole/ Sodium Chloride 100 ml @ 100 mls/hr Q24H IV Last administered on 07/28/16 13:32; Start 07/27/16 at 13:00; Stop 07/29/16 at 00:53; Status DC Sodium Chloride 1,000 ml @ 1,000 mls/hr 1X ONCE IV Last administered on 12:34; Start 07/27/16 at 12:30; Stop 07/27/16 at 13:29; Status DC Sodium Chloride 220 meq/Sodium Acetate 90 meq/ Potassium Chloride 30 meq/ Potassium Acetate 15 meq/Potassium Phosphate 10 mmol/ Magnesium Sulfate 45 meq/ Multivitamins/ Minerals 10 ml/ Chromium/Copper/ Manganese/Seleni/ Zn 1 ml/Total Parenteral Nutrition/Amino Acids/Dextrose/ Fat Emuls... 1,920 ml @ 80 mls/hr TPN CONT IV Last administered on 07/27/16 22:38; Start 07/27/16 at 22:00; Stop 07/28/16 at 21:59; Status DC Sodium Chloride (Iv Sodium Chloride 0.9% 1000ml Bag) 1,000 ml @ 45 mls/hr [id number] IV Last administered on 07/28/16 03:24; Start 07/27/16 at 17:00; Stop 07/28/16 at 10:27; Status DC Acetaminophen 650 mg 650 mg PRN Q6HRS PRN [place] fever Last administered on 03:57; Start 07/27/16 at 16:30; Stop 07/29/16 at 08:33; Status DC Sodium Chloride 1,000 ml @ 427.5 mls/ hr Q2H21M IV Last administered on 19:30; Start 07/27/16 at 19:30; Stop 07/27/16 at 23:30; Status DC Sodium Chloride 220 meq/Sodium Acetate 90 meq/ Potassium Chloride 30 meq/ Potassium Acetate 15 meq/Potassium Phosphate 10 mmol/ Magnesium Sulfate 45 meq/ Multivitamins/ Minerals 10 ml/ Chromium/Copper/ Manganese/Seleni/ Zn 1 ml/Total Parenteral Nutrition/Amino Acids/Dextrose/ Fat Emuls... 1,920 ml @ 80 mls/hr TPN CONT IV Last administered on 07/28/16 21:43; Start 07/28/16 at 22:00; Stop 07/29/16 at 21:59; Status DC Micafungin Sodium/ Dextrose (Mycamine) 100 ml @ 100 mls/hr Q24H IV Last administered on 08/13/16 00:14; Start 07/29/16 at 01:00 Lorazepam (Ativan) 0.05 mg PRN Q4HRS PRN IV ANXIETY / AGITATION; Start at 02:30; Stop 07/29/16 at 02:48; Status DC Lorazepam (Ativan) 0.5 mg PRN Q4HRS PRN IV ANXIETY / AGITATION Last administered on 08/13/16 02:40; Start 07/29/16 at 03:00 Acetaminophen (Tylenol) 650 mg PRN Q4HRS PRN [place] MILD PAIN / TEMP; Start at 08:30 Ketorolac Tromethamine (Toradol) 30 mg PRN Q6HRS PRN IV PAIN/FEVER Last administered on 07/30/16 00:50; Start 07/29/16 at 08:30; Stop 07/30/16 at 13:01 ; Status DC Pantoprazole Sodium 40 mg 40 mg DAILYAC IVP Last administered on 08/13/16 08:28 ; Start 07/29/16 at 09:00 Sodium Chloride 1,000 ml @ 45 mls/hr [id number] IV Last administered on 09:17; Start 07/29/16 at 08:45; Stop 07/31/16 at 15:01; Status DC Sodium Chloride/ Sodium Acetate/ Potassium Chloride/ Potassium Acetate/ Potassium Phosphate/ Magnesium Sulfate/ Multivitamins/ Minerals/Chromium/ Copper /Manganese/ Seleni/Zn/Total Parenteral Nutrition/Amino Acids/Dextrose/ Fat Emulsion Intravenous (Sodium Chloride/ Potass... 1,920 ml @ 80 mls/hr TPN CONT IV Last administered on 07/29/16 22:06; Start 07/29/16 at 22:00; Stop at 21:59; Status DC Lidocaine/Sodium Bicarbonate 20 ml 20 ml STK-MED ONCE IJ ; Start 07/29/16 at 13: 13; Stop 07/29/16 at 13:14; Status DC Heparin Sodium/ Sodium Chloride 500 ml @ As Directed STK-MED ONCE .ROUTE ; Start 07/29/16 at 13:13; Stop 07/29/16 at 13:14; Status DC Lidocaine/ Epinephrine (Xylocaine 1%-Epi 1:100,000) 20 ml STK-MED ONCE .ROUTE ; Start 07/29/16 at 13:22; Stop 07/29/16 at 13:23; Status DC Midazolam HCl (Versed) 5 mg STK-MED ONCE .ROUTE ; Start 07/29/16 at 13:32; Stop 07/29/16 at 13:33; Status DC Fentanyl Citrate (Fentanyl 5ml Vial) 250 mcg STK-MED ONCE .ROUTE ; Start at 13:32; Stop 07/29/16 at 13:33; Status DC Heparin Sodium/ Sodium Chloride 1,000 unit 1X ONCE IART Last administered on 13:45; Start 07/29/16 at 13:45; Stop 07/29/16 at 13:48; Status DC Midazolam HCl (Versed) 5 mg 1X ONCE IV Last administered on 07/29/16 13:45; Start 07/29/16 at 13:45; Stop 07/29/16 at 13:48; Status DC Fentanyl Citrate (Fentanyl 5ml Vial) 250 mcg 1X ONCE IV Last administered on 13:45; Start 07/29/16 at 13:45; Stop 07/29/16 at 13:48; Status DC Lidocaine/ Epinephrine 20 ml 20 ml 1X ONCE IJ Last administered on 07/29/16 13:45; Start 07/29/16 at 13:45; Stop 07/29/16 at 13:48; Status DC Sodium Chloride 220 meq/Sodium Acetate 90 meq/ Potassium Chloride 15 meq/ Potassium Acetate 30 meq/Potassium Phosphate 10 mmol/ Magnesium Sulfate 45 meq/ Multivitamins/ Minerals 10 ml/ Chromium/Copper/ Manganese/Seleni/ Zn 1 ml/Total Parenteral Nutrition/Amino Acids/Dextrose/ Fat Emuls... 1,920 ml @ 80 mls/hr TPN CONT IV ; Start 07/30/16 at 22:00; Stop 07/31/16 at 21:59; Status DC Norepinephrine Bitartrate 8 mg/ Sodium Chloride 258 ml @ 1.93 mls/hr 1X ONCE IV Last administered on 07/30/16 11:17; Start 07/30/16 at 11:15; Stop at 15:43; Status DC Norepinephrine Bitartrate/Sodium Chloride (Levophed Vial/ Iv Sodium Chloride 0.9 % 250ml) 258 ml @ 0 mls/hr CONT PRN IV SEE I/O RECORD Last administered on 08/02 19:54; Start 07/30/16 at 11:15; Stop 08/04/16 at 09:29; Status DC Furosemide 60 mg 60 mg 1X ONCE IVP Last administered on 07/30/16 11:14; Start 07/30/16 at 11:15; Stop 07/30/16 at 11:16; Status DC Sodium Chloride 500 ml @ 500 mls/hr Q1H IV Last administered on 07/30/16 17: 04; Start 07/30/16 at 14:30; Stop 07/30/16 at 15:29; Status DC Albumin Human 100 ml @ 100 mls/hr Q8HRS IV Last administered on 07/31/16 05: 37; Start 07/30/16 at 14:30; Stop 07/31/16 at 06:59; Status DC Furosemide/Sodium Chloride (Lasix Drip/Iv Sodium Chloride 0.9% 100ml) 100 ml @ 0 mls/hr CONT PRN IV SEE I/O RECORD Last administered on 07/31/16 03:17; Start 07/30/16 at 14:30; Stop 08/01/16 at 13:19; Status DC Ondansetron HCl (Zofran) 8 mg PRN Q8HRS PRN IV NAUSEA/VOMITING Last administered on 07/30/16 14:38; Start 07/30/16 at 14:30 Sodium Bicarbonate 50 meq 50 meq 1X ONCE IV Last administered on 07/30/16 14: 43; Start 07/30/16 at 14:30; Stop 07/30/16 at 14:31; Status DC Heparin Sodium/ Sodium Chloride 500 ml @ As Directed STK-MED ONCE .ROUTE ; Start 07/30/16 at 14:49; Stop 07/30/16 at 14:50; Status DC Lidocaine HCl 20 ml STK-MED ONCE .ROUTE ; Start 07/30/16 at 14:49; Stop at 14:50; Status DC Midazolam HCl (Versed) 2 mg STK-MED ONCE .ROUTE ; Start 07/30/16 at 15:19; Stop 07/30/16 at 15:20; Status DC Heparin Sodium/ Sodium Chloride 1,000 unit 1X ONCE IART Last administered on 15:44; Start 07/30/16 at 15:45; Stop 07/30/16 at 15:46; Status DC Midazolam HCl (Versed) 1.5 mg 1X ONCE IV Last administered on 07/30/16 15:44 ; Start 07/30/16 at 15:45; Stop 07/30/16 at 15:46; Status DC Lidocaine HCl 20 ml 1X ONCE IJ Last administered on 07/30/16 15:44; Start at 15:45; Stop 07/30/16 at 15:46; Status DC Heparin Sodium (Porcine) 26626 unit 10,000 unit STK-MED ONCE .ROUTE ; Start at 15:54; Stop 07/30/16 at 15:55; Status DC Fentanyl Citrate 30 ml @ 0 mls/hr CONT PRN PRN IV PROTOCOL Last administered on 08/08/16 10:21; Start 07/30/16 at 16:45; Stop 08/08/16 at 11:03; Status DC Sodium Bicarbonate/ Dextrose 1,150 ml @ 125 mls/hr 1X ONCE IV Last administered on 07/30/16 18:34; Start 07/30/16 at 17:30; Stop 07/31/16 at 02:41 ; Status DC Succinylcholine Chloride 200 mg 200 mg STK-MED ONCE .ROUTE ; Start 07/30/16 at 19:47; Stop 07/30/16 at 19:48; Status DC Propofol 100 ml @ As Directed STK-MED ONCE IV ; Start 07/30/16 at 19:48; Stop 07/30/16 at 19:49; Status DC Midazolam HCl (Versed 100mg/ 100ml Premix) 100 ml @ 0 mls/hr CONT PRN IV SEE I/ O RECORD Last administered on 08/03/16 12:18; Start 07/30/16 at 21:15 Sodium Bicarbonate 50 meq 50 meq 1X ONCE IV Last administered on 07/30/16 22: 15; Start 07/30/16 at 22:30; Stop 07/30/16 at 22:31; Status DC Dopamine HCl/ Dextrose 250 ml @ 11.513 mls/ hr CONT PRN IV SEE I/O RECORD Last administered on 07/31/16 20:16; Start 07/30/16 at 22:15; Stop 08/04/16 at 09:29; Status DC Sodium Bicarbonate/ Dextrose 1,150 ml @ 125 mls/hr Q9H12M IV Last administered on 08/01/16 09:30; Start 07/31/16 at 03:00; Stop 08/01/16 at 13:19 ; Status DC Propofol (Diprivan) 1,000 mg STK-MED ONCE IV ; Start 07/30/16 at 20:00; Stop at 08:16; Status DC Succinylcholine Chloride 200 mg 200 mg STK-MED ONCE .ROUTE ; Start 07/30/16 at 20:00; Stop 07/31/16 at 08:16; Status DC Tigecycline 50 mg/ Sodium Chloride 50 ml @ 100 mls/hr Q12HR IV Last administered on 08/04/16 09:01; Start 07/31/16 at 21:00; Stop 08/04/16 at 10:00 ; Status DC Tigecycline/ Sodium Chloride (Tygacil/Iv Sodium Chloride 0.9% 100ml) 100 ml @ 200 mls/hr 1X ONCE IV Last administered on 07/31/16 09:22; Start 07/31/16 at 09:00; Stop 07/31/16 at 09:29; Status DC Darbepoetin Sarbjit 60 mcg 60 mcg WEEKLYHS SQ Last administered on 08/07/16 21:41 ; Start 07/31/16 at 21:00 Albumin Human 100 ml @ 100 mls/hr 1X ONCE IV Last administered on 07/31/16 11:40; Start 07/31/16 at 11:15; Stop 07/31/16 at 12:14; Status DC Albumin Human 100 ml @ 100 mls/hr 1X ONCE IV Last administered on 07/31/16 12:03; Start 07/31/16 at 11:15; Stop 07/31/16 at 12:14; Status DC Sodium Chloride (Iv Sodium Chloride 0.9% 1000ml Bag) 1,000 ml @ 1,000 mls/hr Q1H PRN IV hypotension; Start 07/31/16 at 11:33; Stop 07/31/16 at 17:32; Status DC Info (PHARMACY MONITORING -- do not chart) 1 each PRN DAILY PRN MC SEE COMMENTS ; Start 07/31/16 at 11:45 Info (PHARMACY MONITORING -- do not chart) 1 each PRN DAILY PRN MC SEE COMMENTS ; Start 07/31/16 at 11:45; Status UNV Hydrocortisone Sodium Succinate (Solu-Cortef) 100 mg Q8HRS IV Last administered on 08/04/16 06:16; Start 08/01/16 at 07:00; Stop 08/04/16 at 09:29 ; Status DC Albuterol/ Ipratropium (Duoneb) 3 ml RTQID NEB Last administered on 08/13/16 08 :12; Start 08/01/16 at 08:00 Albuterol/ Ipratropium 3 ml 3 ml STK-MED ONCE .ROUTE Last administered on 07:34; Start 08/01/16 at 06:59; Stop 08/01/16 at 07:00; Status DC Sodium Chloride 1,000 ml @ 1,000 mls/hr Q1H PRN IV hypotension; Start 08/01/16 at 06:57; Stop 08/01/16 at 12:56; Status DC Albumin Human (Albuminar) 200 ml @ 200 mls/hr 1X PRN PRN IV Hypotension; Start 08/01/16 at 07:00; Stop 08/01/16 at 12:59; Status DC Info (PHARMACY MONITORING -- do not chart) 1 each PRN DAILY PRN MC SEE COMMENTS ; Start 08/01/16 at 07:00; Status UNV Info 1 each 1 each PRN DAILY PRN MC SEE COMMENTS Last administered on 08/12/16 10:49; Start 08/01/16 at 13:30 Sodium Chloride 220 meq/Sodium Acetate 90 meq/ Potassium Chloride 15 meq/ Potassium Acetate 30 meq/Potassium Phosphate 10 mmol/ Magnesium Sulfate 45 meq/ Multivitamins/ Minerals 10 ml/ Chromium/Copper/ Manganese/Seleni/ Zn 1 ml/Total Parenteral Nutrition/Amino Acids/Dextrose/ Fat Emuls... 1,920 ml @ 80 mls/hr TPN CONT IV Last administered on 08/01/16 21:56; Start 08/01/16 at 22:00; Stop 08/02/16 at 21:59; Status DC Potassium Chloride (KCl Premix 20meq) 50 ml @ 50 mls/hr Q1H IV Last administered on 08/01/16 19:05; Start 08/01/16 at 17:00; Stop 08/01/16 at 18:59 ; Status DC Insulin Aspart 0-6 UNITS TIDWMEALS SQ Last administered on 08/02/16 11:33; Start 08/02/16 at 12:00; Stop 08/02/16 at 14:34; Status DC Sodium Chloride 220 meq/Sodium Acetate 90 meq/ Potassium Chloride 15 meq/ Potassium Acetate 30 meq/Magnesium Sulfate 45 meq/ Multivitamins/ Minerals 10 ml / Chromium/Copper/ Manganese/Seleni/ Zn 1 ml/Total Parenteral Nutrition/Amino Acids/Dextrose/ Fat Emulsion Intravenous 1,920 ml @ 80 mls/hr TPN CONT IV Last administered on 08/02/16 21:34; Start 08/02/16 at 22:00; Stop 08/03/16 at 21:59; Status DC Levofloxacin/ Dextrose 150 ml @ 100 mls/hr 1X ONCE IV Last administered on 14:35; Start 08/02/16 at 14:00; Stop 08/02/16 at 15:29; Status DC Daptomycin/Sodium Chloride (Cubicin/Iv Sodium Chloride 0.9% 50ml) 50 ml @ 100 mls/hr ONCE ONCE IV Last administered on 08/02/16 14:34; Start 08/02/16 at 15 :00; Stop 08/02/16 at 15:29; Status DC Insulin Aspart 0-6 UNITS Q6HRS SQ Last administered on 08/11/16 18:13; Start 08/02/16 at 18:00 Sodium Chloride (Iv Sodium Chloride 0.9% 1000ml Bag) 1,000 ml @ 1,000 mls/hr Q1H PRN IV hypotension; Start 08/03/16 at 07:26; Stop 08/03/16 at 13:25; Status DC Diphenhydramine HCl (Benadryl) 25 mg 1X PRN PRN IV ITCHING; Start 08/03/16 at 07:30; Stop 08/04/16 at 07:29; Status DC Diphenhydramine HCl (Benadryl) 25 mg 1X PRN PRN IV ITCHING; Start 08/03/16 at 07:30; Stop 08/04/16 at 07:29; Status DC Sodium Chloride (Normal Saline Flush) 10 ml 1X PRN PRN IV AP catheter pack; Start 08/03/16 at 07:30; Stop 08/04/16 at 07:29; Status DC Sodium Chloride 10 ml 10 ml 1X PRN PRN IV SIGNALS INTELLIGENCE ANALYSIS MANAGER catheter pack; Start 08/03/16 at 07:30; Stop 08/04/16 at 07:29; Status DC Sodium Chloride (Iv Sodium Chloride 0.9% 1000ml Bag) 1,000 ml @ 400 mls/hr Q2H30M PRN IV PATENCY; Start 08/03/16 at 07:26; Stop 08/03/16 at 19:25; Status DC Info 1 each 1 each PRN DAILY PRN MC SEE COMMENTS; Start 08/03/16 at 07:30; Status UNV Albumin Human 200 ml @ 200 mls/hr Q2HR IV Last administered on 08/03/16 10:00 ; Start 08/03/16 at 08:44; Stop 08/03/16 at 10:59; Status DC Sodium Chloride 160 meq/Sodium Acetate 60 meq/ Potassium Chloride 15 meq/ Potassium Acetate 30 meq/Magnesium Sulfate 25 meq/ Multivitamins/ Minerals 10 ml / Chromium/Copper/ Manganese/Seleni/ Zn 1 ml/Total Parenteral Nutrition/Amino Acids/Dextrose/ Fat Emulsion Intravenous 1,500 ml @ 62.5 mls/hr TPN CONT IV Last administered on 08/03/16 22:52; Start 08/03/16 at 22:00; Stop 08/04/16 at 21:59; Status DC Levofloxacin/ Dextrose 100 ml @ 100 mls/hr 1X ONCE IV Last administered on 10:50; Start 08/04/16 at 07:30; Stop 08/04/16 at 08:30; Status DC Daptomycin 450 mg/ Sodium Chloride 50 ml @ 100 mls/hr ONCE ONCE IV Last administered on 08/04/16 09:55; Start 08/04/16 at 08:00; Stop 08/04/16 at 08:30 ; Status DC Tigecycline/ Sodium Chloride (Tygacil/Iv Sodium Chloride 0.9% 50ml) 50 ml @ 100 mls/hr Q12HR IV Last administered on 08/09/16 07:20; Start 08/04/16 at 21: 00; Stop 08/09/16 at 09:42; Status DC Hydrocortisone Sodium Succinate 50 mg 50 mg Q8HRS IV Last administered on 05:39; Start 08/04/16 at 14:00; Stop 08/05/16 at 11:12; Status DC Furosemide 100 mg/ Sodium Chloride 100 ml @ 0 mls/hr CONT PRN IV SEE I/O RECORD Last administered on 08/09/16 06:43; Start 08/04/16 at 11:30; Stop 08/09 at 11:31; Status DC Sodium Chloride 160 meq/Sodium Acetate 60 meq/ Potassium Chloride 15 meq/ Potassium Acetate 30 meq/Magnesium Sulfate 25 meq/ Multivitamins/ Minerals 10 ml / Chromium/Copper/ Manganese/Seleni/ Zn 1 ml/Total Parenteral Nutrition/Amino Acids/Dextrose/ Fat Emulsion Intravenous 1,500 ml @ 62.5 mls/hr TPN CONT IV Last administered on 08/04/16 21:45; Start 08/04/16 at 22:00; Stop 08/06/16 at 08:48; Status DC Sodium Chloride 1,000 ml @ 1,000 mls/hr Q1H PRN IV hypotension; Start 08/04/16 at 12:00; Stop 08/04/16 at 17:59; Status DC Sodium Chloride (Iv Sodium Chloride 0.9% 1000ml Bag) 1,000 ml @ 400 mls/hr Q2H30M PRN IV PATENCY; Start 08/04/16 at 12:00; Stop 08/04/16 at 23:59; Status DC Info 1 each 1 each PRN DAILY PRN MC SEE COMMENTS; Start 08/04/16 at 16:30; Status UNV Levofloxacin/ Dextrose 100 ml @ 100 mls/hr 1X ONCE IV Last administered on 14:27; Start 08/05/16 at 14:00; Stop 08/05/16 at 14:59; Status DC Daptomycin/Sodium Chloride (Cubicin/Iv Sodium Chloride 0.9% 50ml) 50 ml @ 100 mls/hr 1X ONCE IV Last administered on 08/05/16 14:27; Start 08/05/16 at 14: 00; Stop 08/05/16 at 14:29; Status DC Heparin Sodium (Porcine) 10,000 unit STK-MED ONCE .ROUTE ; Start 08/05/16 at 09: 35; Stop 08/05/16 at 09:36; Status DC Lidocaine/Sodium Bicarbonate 20 ml 20 ml STK-MED ONCE IJ ; Start 08/05/16 at 09: 36; Stop 08/05/16 at 09:37; Status DC Heparin Sodium/ Sodium Chloride 500 ml @ As Directed STK-MED ONCE .ROUTE ; Start 08/05/16 at 09:36; Stop 08/05/16 at 09:37; Status DC Lidocaine/Sodium Bicarbonate (Buffered Lidocaine 1%) 2 ml 1X ONCE IJ Last administered on 08/05/16 10:04; Start 08/05/16 at 10:00; Stop 08/05/16 at 10:02 ; Status DC Heparin Sodium/ Sodium Chloride 60 unit 1X ONCE IV Last administered on 10:04; Start 08/05/16 at 10:00; Stop 08/05/16 at 10:02; Status DC Heparin Sodium (Porcine) 2,800 unit 1X ONCE INT CAT Last administered on 10:04; Start 08/05/16 at 10:00; Stop 08/05/16 at 10:02; Status DC Info (PHARMACY MONITORING -- do not chart) 1 each PRN DAILY PRN MC SEE COMMENTS ; Start 08/05/16 at 10:30; Stop 08/05/16 at 10:30; Status DC Info (PHARMACY MONITORING -- do not chart) 1 each PRN DAILY PRN MC SEE COMMENTS ; Start 08/05/16 at 10:30; Stop 08/05/16 at 10:30; Status DC Hydrocortisone Sodium Succinate 50 mg 50 mg BID IV Last administered on 07:49; Start 08/05/16 at 21:00; Stop 08/07/16 at 10:23; Status DC Sodium Chloride 160 meq/Sodium Acetate 60 meq/ Potassium Chloride 15 meq/ Potassium Acetate 30 meq/Magnesium Sulfate 25 meq/ Multivitamins/ Minerals 10 ml / Chromium/Copper/ Manganese/Seleni/ Zn 1 ml/Total Parenteral Nutrition/Amino Acids/Dextrose/ Fat Emulsion Intravenous 1,500 ml @ 62.5 mls/hr TPN CONT IV Last administered on 08/05/16 22:04; Start 08/05/16 at 22:00; Stop 08/06/16 at 21:59; Status DC Daptomycin 500 mg/ Sodium Chloride 50 ml @ 100 mls/hr Q24H IV Last administered on 08/12/16 18:25; Start 08/06/16 at 14:00; Stop 08/13/16 at 08:23; Status DC Sodium Chloride (Iv Sodium Chloride 0.9% 1000ml Bag) 1,000 ml @ 1,000 mls/hr Q1H PRN IV hypotension; Start 08/06/16 at 08:21; Stop 08/06/16 at 14:20; Status DC Diphenhydramine HCl (Benadryl) 25 mg 1X PRN PRN IV ITCHING; Start 08/06/16 at 08:30; Stop 08/07/16 at 08:29; Status DC Diphenhydramine HCl (Benadryl) 25 mg 1X PRN PRN IV ITCHING; Start 08/06/16 at 08:30; Stop 08/07/16 at 08:29; Status DC Sodium Chloride (Normal Saline Flush) 10 ml 1X PRN PRN IV AP catheter pack; Start 08/06/16 at 08:30; Stop 08/07/16 at 08:29; Status DC Sodium Chloride 10 ml 10 ml 1X PRN PRN IV SIGNALS INTELLIGENCE ANALYSIS MANAGER catheter pack; Start 08/06/16 at 08:30; Stop 08/07/16 at 08:29; Status DC Sodium Chloride (Iv Sodium Chloride 0.9% 1000ml Bag) 1,000 ml @ 400 mls/hr Q2H30M PRN IV PATENCY; Start 08/06/16 at 08:21; Stop 08/06/16 at 20:20; Status DC Info 1 each 1 each PRN DAILY PRN MC SEE COMMENTS; Start 08/06/16 at 08:30; Status UNV Albumin Human 200 ml @ 200 mls/hr 1X STAT IV Last administered on 08/06/16 10:09; Start 08/06/16 at 09:52; Stop 08/06/16 at 10:51; Status DC Sodium Chloride/ Sodium Acetate/ Potassium Chloride/ Potassium Acetate/ Magnesium Sulfate/ Multivitamins/ Minerals/Chromium/ Copper/Manganese/ Seleni/Zn /Total Parenteral Nutrition/Amino Acids/Dextrose/ Fat Emulsion Intravenous ( Sodium Chloride/ Infuvite Adult/ Multitrace-5 Conc/ Tpn - Tpn Flu... 1,500 ml @ 62.5 mls/hr TPN CONT IV Last administered on 08/06/16 21:57; Start at 22:00; Stop 08/07/16 at 21:59; Status DC Darbepoetin Sarbjit 60 mcg 60 mcg [id number] SQ ; Start 08/07/16 at 21:00; Status UNV Potassium Chloride (KCl Premix 20meq) 50 ml @ 50 mls/hr Q1H IV Last administered on 08/07/16t 10:46; Start 08/07/16 at 08:00; Stop 08/07/16 at 09:59 ; Status DC Hydrocortisone Sodium Succinate 25 mg 25 mg BID IV ; Start 08/07/16 at 21:00; Stop 08/07/16 at 21:00; Status DC Sodium Chloride (Iv Sodium Chloride 0.9% 1000ml Bag) 1,000 ml @ 1,000 mls/hr Q1H PRN IV hypotension; Start 08/07/16 at 12:08; Stop 08/07/16 at 18:07; Status DC Diphenhydramine HCl (Benadryl) 25 mg 1X PRN PRN IV ITCHING; Start 08/07/16 at 12:15; Stop 08/08/16 at 12:14; Status DC Diphenhydramine HCl (Benadryl) 25 mg 1X PRN PRN IV ITCHING; Start 08/07/16 at 12:15; Stop 08/08/16 at 12:14; Status DC Sodium Chloride (Normal Saline Flush) 10 ml 1X PRN PRN IV AP catheter pack; Start 08/07/16 at 12:15; Stop 08/08/16 at 12:14; Status DC Sodium Chloride (Normal Saline Flush) 10 ml 1X PRN PRN IV SIGNALS INTELLIGENCE ANALYSIS MANAGER catheter pack; Start 08/07/16 at 12:15; Stop 08/08/16 at 12:14; Status DC Info (PHARMACY MONITORING -- do not chart) 1 each PRN DAILY PRN MC SEE COMMENTS ; Start 08/07/16 at 12:15; Status UNV Info 1 each 1 each PRN DAILY PRN MC SEE COMMENTS; Start 08/07/16 at 12:15; Status UNV Sodium Chloride 160 meq/Sodium Acetate 60 meq/ Potassium Chloride 55 meq/ Potassium Acetate 30 meq/Magnesium Sulfate 25 meq/ Multivitamins/ Minerals 10 ml / Chromium/Copper/ Manganese/Seleni/ Zn 1 ml/Total Parenteral Nutrition/Amino Acids/Dextrose/ Fat Emulsion Intravenous 1,500 ml @ 62.5 mls/hr TPN CONT IV Last administered on 08/07/16t 21:41; Start 08/07/16 at 22:00; Stop 08/08/16 at 21:59; Status DC Potassium Chloride (KCl Premix 20meq) 50 ml @ 50 mls/hr 1X ONCE IV Last administered on 08/08/16 09:04; Start 08/08/16 at 10:00; Stop 08/08/16 at 10:59 ; Status DC Fentanyl Citrate 25 mcg 25 mcg PRN Q4HRS PRN IV PAIN Last administered on 09:23; Start 08/08/16 at 11:00 Potassium Chloride 50 ml @ 50 mls/hr 1X ONCE IV Last administered on 15:33; Start 08/08/16 at 11:15; Stop 08/08/16 at 12:14; Status DC Sodium Chloride 140 meq/Sodium Acetate 60 meq/ Potassium Chloride 70 meq/ Potassium Acetate 30 meq/Magnesium Sulfate 25 meq/ Multivitamins/ Minerals 10 ml / Chromium/Copper/ Manganese/Seleni/ Zn 1 ml/Total Parenteral Nutrition/Amino Acids/Dextrose/ Fat Emulsion Intravenous 1,500 ml @ 62.5 mls/hr TPN CONT IV Last administered on 08/08/16 21:42; Start 08/08/16 at 22:00; Stop 08/09/16 at 11:30; Status DC Tigecycline 50 mg/ Sodium Chloride 50 ml @ 100 mls/hr Q12HR IV ; Start at 09:42; Stop 08/09/16 at 10:03; Status DC Dextrose 1,000 ml @ 80 mls/hr [id number] IV ; Start 08/09/16 at 11:45; Stop at 11:57; Status DC Dextrose/Sodium Chloride 1,000 ml @ 50 mls/hr Q20H IV Last administered on 12:22; Start 08/09/16 at 12:00; Stop 08/10/16 at 10:09; Status DC Sodium Chloride 10 meq/Sodium Acetate 10 meq/ Potassium Chloride 40 meq/ Potassium Acetate 10 meq/Magnesium Sulfate 15 meq/ Multivitamins/ Minerals 10 ml / Chromium/Copper/ Manganese/Seleni/ Zn 1 ml/Total Parenteral Nutrition/Amino Acids/Dextrose/ Fat Emulsion Intravenous 1,512 ml @ 63 mls/hr TPN CONT IV Last administered on 08/10/16 10:44; Start 08/09/16 at 22:00; Stop 08/10/16 at 21:59; Status DC Dextrose 1,000 ml @ 100 mls/hr Q10H IV Last administered on 08/10/16 10:37; Start 08/10/16 at 10:15; Stop 08/10/16 at 13:48; Status DC Potassium Chloride 50 ml @ 50 mls/hr 1X ONCE IV Last administered on 10:39; Start 08/10/16 at 10:30; Stop 08/10/16 at 11:29; Status DC Dextrose 1,000 ml @ 100 mls/hr Q10H IV Last administered on 08/13/16 05:12; Start 08/10/16 at 14:00 Potassium Chloride 40 meq/ Potassium Acetate 10 meq/Magnesium Sulfate 15 meq/ Multivitamins/ Minerals 10 ml/ Chromium/Copper/ Manganese/Seleni/ Zn 1 ml/Total Parenteral Nutrition/Amino Acids/Dextrose/ Fat Emulsion Intravenous 1,512 ml @ 63 mls/hr TPN CONT IV Last administered on 08/10/16 22:13; Start 08/10/16 at 22:00; Stop 08/11/16 at 21:59; Status DC Potassium Chloride 50 ml @ 50 mls/hr Q1H IV Last administered on 08/11/16 13: 05; Start 08/11/16 at 11:00; Stop 08/11/16 at 12:59; Status DC Potassium Chloride 20 meq/ Potassium Acetate 30 meq/Magnesium Sulfate 15 meq/ Multivitamins/ Minerals 10 ml/ Chromium/Copper/ Manganese/Seleni/ Zn 1 ml/Total Parenteral Nutrition/Amino Acids/Dextrose/ Fat Emulsion Intravenous 1,512 ml @ 63 mls/hr TPN CONT IV Last administered on 08/11/16 21:31; Start 08/11/16 at 22:00; Stop 08/12/16 at 21:59; Status DC Potassium Chloride/ Potassium Acetate/ Magnesium Sulfate/ Multivitamins/ Minerals/Chromium/ Copper/Manganese/ Seleni/Zn/Total Parenteral Nutrition/Amino Acids/Dextrose/ Fat Emulsion Intravenous (Infuvite Adult/ Multitrace-5 Conc/ Tpn - Tpn Fluid/ Dextrose 70%-Water Iv Soln/ Intralipid 20%) 1,512 ml @ 63 mls/ hr TPN CONT IV Last administered on 08/12/16 21:27; Start 08/12/16 at 22:00 Potassium Chloride 40 meq 40 meq 1X ONCE PO ; Start 08/13/16 at 12:00; Stop 08/13 at 12:01 Magnesium Sulfate/ Dextrose (Magnesium Sulfate PREMIX 2GM) 50 ml @ 25 mls/hr 1X ONCE IV ; Start 08/13/16 at 12:00; Stop 08/13/16 at 13:59 Active Scripts Active Dilaudid (Hydromorphone Hcl) 4 Mg Tablet 4 Mg PO Q6HRS Phenazopyridine Hcl 200 Mg Tablet 200 Mg PO PRN TID PRN FENTANYL 50mcg/hr (Fentanyl) 1 Each Patch.td72 1 Patch TD Q3DAYS Anaspaz (Hyoscyamine Sulfate) 0.125 Mg Tab.rapdis 0.125 Mg PO Q6HRS PRN Cefpodoxime Proxetil 200 Mg Tablet 200 Mg PO BID Sertraline Hcl 50 Mg Tablet 100 Mg PO DAILY 30 Days Protonix (Pantoprazole Sodium) 40 Mg Tablet.dr 1 Tab PO DAILY Zinc Oxide 56.7 Gm Oint...g. 1 Sang TP BID Lidocaine 35.44 Gm Oint...g. 1 Sang TP BID Ondansetron Odt (Ondansetron) 4 Mg Tab.rapdis 8 Mg PO PRN Q8HRS PRN Gas-X (Simethicone) 80 Mg Tab.chew 80 Mg PO PRN QID PRN Reported Lorazepam 0.5 Mg Tablet 0.5 Mg PO PRN BID PRN Vitals/I & O Vital Sign - Last 24 Hours 08/12/16 08/12/16 08/12/16 08/12/16 12:00 14:00 14:00 14:30 Pulse 84 Resp 24 B/P 140/73 Pulse Ox 100 100 O2 Delivery Room Air Room Air Room Air O2 Flow Rate 2.0 2.0 08/12/16 08/12/16 08/12/16 08/12/16 16:00 16:00 16:02 18:25 Pulse 84 Resp 24 B/P 139/68 Pulse Ox 100 100 100 O2 Delivery Room Air Room Air Room Air Room Air O2 Flow Rate 2.0 08/12/16 08/12/16 08/12/16 08/12/16 20:00 20:00 20:28 22:44 Temp 98.2 98.2 Pulse 65 Resp 17 22 B/P 100/60 Pulse Ox 100 100 100 O2 Delivery Room Air Room Air Room Air Room Air 08/12/16 08/13/16 08/13/16 08/13/16 23:59 02:41 03:15 04:00 Temp 98.3 98.2 98.3 98.2 Pulse 77 79 Resp 18 18 16 21 B/P 119/62 119/67 Pulse Ox 100 100 100 100 O2 Delivery Room Air Room Air Room Air Room Air 08/13/16 08/13/16 08/13/16 08:00 08:00 08:13 Temp 98.3 98.3 Pulse 86 Resp 17 B/P 126/72 Pulse Ox 100 100 O2 Delivery Room Air Room Air Room Air Intake and Output 08/12/16 08/12/16 08/13/16 15:00 23:00 07:00 Intake Total 30 ml 4600 ml Output Total 1375 ml 900 ml Balance 30 ml -1375 ml 3700 ml ENMA FINLEY MD Aug 13, 2016 11:33
--- NOTE | 2016-08-13 11:41 | PDOC ---
Provider Note Provider Note discharge summary dictated # [id number] BENITA LUTZ MD Aug 13, 2016 11:41
[2016-08-13 12:00] VITALS: BP 122/69
[2016-08-13] MEDS ORDERED: MAGNESIUM SULFATE 2GM 50 ML IV ONE (12:00)
[2016-08-13] MEDS: POTASSIUM CHLORIDE 20 MEQ TABLET.ER. PO ONE ×2 (12:00→12:23)
[2016-08-13] MEDS: POTASSIUM CHLORIDE 20MEQ 50 ML IV SCH ×2 (13:09→13:46)
[2016-08-13] MEDS ORDERED: POTASSIUM CL 20MEQ D5-0.9%NACL 1,000 ML IV ONE (13:30)
--- NOTE | 2016-08-13 14:14 | PDOC ---
PROGRESS NOTES Assessment Assessment Metabolic encephalopathy. Respiratory failure. Abdominal pain. Septicemia. Metabolic acidosis. Pulmonary edema. Pulmonary infiltrate likely Acute renal failure on dialysis Chronic vesicoenteric fistula Abdominal wounds. Diverticulitis. Cervical cancer. Hypoalbuminemia UTI HTN RECOMMENDATIONS/PLAN: Continue medical treatment. OT/PT. Discussed with her daughter at bedside on 08/12/16. SUBJECTIVE: Sitting in chair. OBJECTIVE: No acute focalized motor or sensory deficits. PAST MEDICAL AND SURGICAL HISTORY: Please see H&P MEDICATIONS: Refer to MAR REVIEW OF SYSTEMS: Constitutional: No malnutrition, weight loss, cachexia. Head: No recent traumatic brain or head injury. Skin: No edema, or rash. Ear: No infection, tinnitus. Eyes: No vision loss, or diplopia. Nose: No bleeding or purulent discharges. Hearing: No hearing decrease. Neck: No injury. Cardiac: HTN Pulmonary: No COPD. GI: See above. Urinary/genital: UTI. Endocrine: No cousin face, craniofacial dysmorphism, polydactyly. Skeletomuscular: generalized weakness. Neurological: see HP. Psychiatric: Denies drug use/abuse. Otherwise, not [id number] review of systems. PHYSICAL EXAMINATION: General appearance in subacute distress. HEENT: Normocephalic and nontraumatic. Eyes, nose, ears, and throat are unremarkable. Hearing decrease. Neck is supple. No lymphadenopathy. No Crepitus. Cardiovascular: S1, S2, regular rate and rhythm. Pulmonary: On vent Abdomen: Wounds noted Extremities: Edema in hands and LE. NEUROLOGICAL EXAMINATION: Off vent. Sleepiness but arousable. Sitting in chair. Not oriented to time, place but knows person. PERRL. EOMI. CN: no acute focal findings. Muscle tone: decreased Muscle strength: 3-4 UE, 2-3 LE DTR: 1+ Plantar reflex: Flexor response bilaterally Gait: Unable to walk. Sensory exam: no acute abnormal findings. No acute cerebellar signs elicited. Objective Objective Vital Signs Date Time Temp Pulse Resp B/P Pulse Ox O2 Delivery O2 Flow Rate FiO2 08/13/16 12:20 100 Room Air 08/13/16 12:00 98.0 86 19 122/69 98.0 08/12/16 18:25 2.0 Intake and Output 08/13/16 07:00 Intake Total 4630 ml Output Total 2275 ml Balance 2355 ml Intake Oral 60 ml IV Total 4570 ml Output Urine Total 1700 ml Drainage Total 575 ml Vitals Signs Vitals VS - Last 72 Hours, by Label Date Time Temp Pulse Resp B/P Pulse Ox O2 Delivery O2 Flow Rate FiO2 08/13/16 12:20 100 Room Air 08/13/16 12:00 98.0 86 19 122/69 100 Room Air 98.0 08/13/16 08:13 100 Room Air 08/13/16 08:00 Room Air 08/13/16 08:00 98.3 86 17 126/72 100 Room Air 98.3 08/13/16 04:00 98.2 79 21 119/67 100 Room Air 98.2 08/13/16 03:15 16 100 Room Air 08/13/16 02:41 18 100 Room Air 08/12/16 23:59 98.3 77 18 119/62 100 Room Air 98.3 08/12/16 22:44 22 100 Room Air 08/12/16 20:28 100 Room Air 08/12/16 20:00 98.2 65 17 100/60 100 Room Air 98.2 08/12/16 20:00 Room Air 08/12/16 18:25 100 Room Air 2.0 08/12/16 16:02 100 Room Air 08/12/16 16:00 84 24 139/68 100 Room Air 08/12/16 16:00 Room Air 08/12/16 14:30 2.0 08/12/16 14:00 84 24 140/73 100 Room Air 08/12/16 14:00 100 Room Air 2.0 08/12/16 12:00 Room Air 08/12/16 10:00 84 24 125/73 100 Room Air 08/12/16 09:30 Room Air 08/12/16 09:00 84 24 142/73 100 Room Air 08/12/16 08:00 Room Air 08/12/16 08:00 65 17 132/65 100 Room Air 08/12/16 07:00 80 23 147/74 100 Room Air Laboratory Laboratory Laboratory Tests Test 08/12/16 19:15 08/13/16 00:14 08/13/16 05:16 08/13/16 05:20 Glucose (Fingerstick) 109mg/dL (70-99) 153mg/dL (70-99) 129mg/dL (70-99) White Blood Count 5.6x10^3/uL (4.0-11.0) Red Blood Count 3.07x10^6/uL (3.50-5.40) Hemoglobin 8.4g/dL (12.0-15.5) Hematocrit 25.6% (36.0-47.0) Mean Corpuscular Volume 84fL (79-100) Mean Corpuscular Hemoglobin 27pg (25-35) Mean Corpuscular Hemoglobin Concent 33g/dL (31-37) Red Cell Distribution Width 25.6% (11.5-14.5) Platelet Count 218x10^3/uL (140-400) Neutrophils (%) (Auto) 54% (31-73) Lymphocytes (%) (Auto) 25% (24-48) Monocytes (%) (Auto) 13% (0-9) Eosinophils (%) (Auto) 4% (0-3) Basophils (%) (Auto) 3% (0-3) Neutrophils # (Auto) 3.0x10^3uL (1.8-7.7) Lymphocytes # (Auto) 1.4x10^3/uL (1.0-4.8) Monocytes # (Auto) 0.7x10^3/uL (0.0-1.1) Eosinophils # (Auto) 0.2x10^3/uL (0.0-0.7) Basophils # (Auto) 0.2x10^3/uL (0.0-0.2) Sodium Level 135mmol/L (136-145) Potassium Level 3.3mmol/L (3.5-5.1) Chloride Level 103mmol/L (98-107) Carbon Dioxide Level 23mmol/L (21-32) Anion Gap 9 (6-14) Blood Urea Nitrogen 29mg/dL (7-20) Creatinine 0.6mg/dL (0.6-1.0) Estimated GFR (Cockcroft-Gault) 123.0 Glucose Level 132mg/dL (70-99) Calcium Level 8.9mg/dL (8.5-10.1) Phosphorus Level 2.1mg/dL (2.6-4.7) Magnesium Level 1.6mg/dL (1.8-2.4) Test 08/13/16 12:14 Glucose (Fingerstick) 146mg/dL (70-99) Microbiology 08/01/16 Blood Culture - Final, Complete NO GROWTH AFTER 5 DAYS 07/15/16 Urine Culture - Final, Complete 07/15/16 Urine Culture Result 1 (ROYA) - Final, Complete 07/15/16 Urine Culture Result 2 (ROYA) - Final, Complete 07/15/16 Antimicrobic Susceptibility - Final, Complete 07/29/16 Aerobic Culture - Final, Complete 07/29/16 Aerobic Culture Result 1 (ROYA) - Final, Complete Medication Medications Current Medications Hydromorphone HCl 2 mg 2 mg PRN Q4HRS PRN IV PAIN; Start 08/13/16 at 11:30 Magnesium Sulfate/ Dextrose (Magnesium Sulfate PREMIX 2GM) 50 ml @ 25 mls/hr 1X ONCE IV Last administered on 08/13/16 12:24; Start 08/13/16 at 12:00; Stop 08/13/16 at 13:59; Status DC Potassium Chloride 40 meq 40 meq 1X ONCE PO ; Start 08/13/16 at 12:00; Stop 08/13 at 12:01; Status DC Potassium Chloride/ Potassium Acetate/ Magnesium Sulfate/ Multivitamins/ Minerals/Chromium/ Copper/Manganese/ Seleni/Zn/Total Parenteral Nutrition/Amino Acids/Dextrose/ Fat Emulsion Intravenous (Infuvite Adult/ Multitrace-5 Conc/ Tpn - Tpn Fluid/ Dextrose 70%-Water Iv Soln/ Intralipid 20%) 1,512 ml @ 63 mls/ hr TPN CONT IV Last administered on 08/12/16 21:27; Start 08/12/16 at 22:00 Potassium Chloride/Dextrose/ Sod Cl (KCl 20 Meq In D5W-NS) 1,000 ml @ 125 mls/ hr 1X ONCE IV Last administered on 08/13/16 13:11; Start 08/13/16 at 13:30; Stop 08/13/16 at 21:29 Potassium Chloride 50 ml @ 50 mls/hr Q1H IV Last administered on 08/13/16 13:46 ; Start 08/13/16 at 13:00; Stop 08/13/16 at 14:59 Comment Review of Relevant I have reviewed the following items lucila (where applicable) has been applied. JEFFRY JUAREZ MD Aug 13, 2016 14:14
--- NOTE | 2016-08-13 14:22 | PDOC ---
PROGRESS NOTES Subjective Subjective Patient is less confused today. Denies any chest pain. Will go to [facility] this afternoon. Objective Objective Vital Signs Date Time Temp Pulse Resp B/P Pulse Ox O2 Delivery O2 Flow Rate FiO2 08/13/16 12:20 100 Room Air 08/13/16 12:00 98.0 86 19 122/69 98.0 08/12/16 18:25 2.0 Intake and Output 08/13/16 07:00 Intake Total 4630 ml Output Total 2275 ml Balance 2355 ml Intake Oral 60 ml IV Total 4570 ml Output Urine Total 1700 ml Drainage Total 575 ml Physical Exam Physical Exam Cardiac exam unchanged. Lungs clear to auscultation. Generalized edema present but improving. Assessment Assessment Patients cardiac status remains unchanged. Problems Medical Problems: (1) Abdominal pain Status: Acute (2) Enterocutaneous fistula Status: Acute (3) Sepsis Status: Acute (4) Severe sepsis with septic shock Status: Acute (5) Urinary tract infection Status: Acute (6) UTI (urinary tract infection) Status: Acute Plan Plan of Care Patient will go to [facility] today. Comment Review of Relevant I have reviewed the following items lucila (where applicable) has been applied. Labs Laboratory Tests Test 08/11/16 18:08 08/12/16 00:10 08/12/16 05:50 08/12/16 19:15 Glucose (Fingerstick) 174mg/dL (70-99) 164mg/dL (70-99) 133mg/dL (70-99) 109mg/dL (70-99) White Blood Count 5.0x10^3/uL (4.0-11.0) Red Blood Count 3.15x10^6/uL (3.50-5.40) Hemoglobin 8.5g/dL (12.0-15.5) Hematocrit 26.7% (36.0-47.0) Mean Corpuscular Volume 85fL (79-100) Mean Corpuscular Hemoglobin 27pg (25-35) Mean Corpuscular Hemoglobin Concent 32g/dL (31-37) Red Cell Distribution Width 24.7% (11.5-14.5) Platelet Count 137x10^3/uL (140-400) Neutrophils (%) (Auto) 55% (31-73) Lymphocytes (%) (Auto) 28% (24-48) Monocytes (%) (Auto) 11% (0-9) Eosinophils (%) (Auto) 5% (0-3) Basophils (%) (Auto) 1% (0-3) Neutrophils # (Auto) 2.8x10^3uL (1.8-7.7) Lymphocytes # (Auto) 1.4x10^3/uL (1.0-4.8) Monocytes # (Auto) 0.6x10^3/uL (0.0-1.1) Eosinophils # (Auto) 0.2x10^3/uL (0.0-0.7) Basophils # (Auto) 0.1x10^3/uL (0.0-0.2) Sodium Level 145mmol/L (136-145) Potassium Level 3.6mmol/L (3.5-5.1) Chloride Level 107mmol/L (98-107) Carbon Dioxide Level 28mmol/L (21-32) Anion Gap 10 (6-14) Blood Urea Nitrogen 33mg/dL (7-20) Creatinine 0.7mg/dL (0.6-1.0) Estimated GFR (Cockcroft-Gault) 102.9 Glucose Level 143mg/dL (70-99) Calcium Level 9.2mg/dL (8.5-10.1) Test 08/13/16 00:14 08/13/16 05:16 08/13/16 05:20 08/13/16 12:14 Glucose (Fingerstick) 153mg/dL (70-99) 129mg/dL (70-99) 146mg/dL (70-99) White Blood Count 5.6x10^3/uL (4.0-11.0) Red Blood Count 3.07x10^6/uL (3.50-5.40) Hemoglobin 8.4g/dL (12.0-15.5) Hematocrit 25.6% (36.0-47.0) Mean Corpuscular Volume 84fL (79-100) Mean Corpuscular Hemoglobin 27pg (25-35) Mean Corpuscular Hemoglobin Concent 33g/dL (31-37) Red Cell Distribution Width 25.6% (11.5-14.5) Platelet Count 218x10^3/uL (140-400) Neutrophils (%) (Auto) 54% (31-73) Lymphocytes (%) (Auto) 25% (24-48) Monocytes (%) (Auto) 13% (0-9) Eosinophils (%) (Auto) 4% (0-3) Basophils (%) (Auto) 3% (0-3) Neutrophils # (Auto) 3.0x10^3uL (1.8-7.7) Lymphocytes # (Auto) 1.4x10^3/uL (1.0-4.8) Monocytes # (Auto) 0.7x10^3/uL (0.0-1.1) Eosinophils # (Auto) 0.2x10^3/uL (0.0-0.7) Basophils # (Auto) 0.2x10^3/uL (0.0-0.2) Sodium Level 135mmol/L (136-145) Potassium Level 3.3mmol/L (3.5-5.1) Chloride Level 103mmol/L (98-107) Carbon Dioxide Level 23mmol/L (21-32) Anion Gap 9 (6-14) Blood Urea Nitrogen 29mg/dL (7-20) Creatinine 0.6mg/dL (0.6-1.0) Estimated GFR (Cockcroft-Gault) 123.0 Glucose Level 132mg/dL (70-99) Calcium Level 8.9mg/dL (8.5-10.1) Phosphorus Level 2.1mg/dL (2.6-4.7) Magnesium Level 1.6mg/dL (1.8-2.4) Laboratory Tests Test 08/12/16 19:15 08/13/16 00:14 08/13/16 05:16 08/13/16 05:20 Glucose (Fingerstick) 109mg/dL (70-99) 153mg/dL (70-99) 129mg/dL (70-99) White Blood Count 5.6x10^3/uL (4.0-11.0) Red Blood Count 3.07x10^6/uL (3.50-5.40) Hemoglobin 8.4g/dL (12.0-15.5) Hematocrit 25.6% (36.0-47.0) Mean Corpuscular Volume 84fL (79-100) Mean Corpuscular Hemoglobin 27pg (25-35) Mean Corpuscular Hemoglobin Concent 33g/dL (31-37) Red Cell Distribution Width 25.6% (11.5-14.5) Platelet Count 218x10^3/uL (140-400) Neutrophils (%) (Auto) 54% (31-73) Lymphocytes (%) (Auto) 25% (24-48) Monocytes (%) (Auto) 13% (0-9) Eosinophils (%) (Auto) 4% (0-3) Basophils (%) (Auto) 3% (0-3) Neutrophils # (Auto) 3.0x10^3uL (1.8-7.7) Lymphocytes # (Auto) 1.4x10^3/uL (1.0-4.8) Monocytes # (Auto) 0.7x10^3/uL (0.0-1.1) Eosinophils # (Auto) 0.2x10^3/uL (0.0-0.7) Basophils # (Auto) 0.2x10^3/uL (0.0-0.2) Sodium Level 135mmol/L (136-145) Potassium Level 3.3mmol/L (3.5-5.1) Chloride Level 103mmol/L (98-107) Carbon Dioxide Level 23mmol/L (21-32) Anion Gap 9 (6-14) Blood Urea Nitrogen 29mg/dL (7-20) Creatinine 0.6mg/dL (0.6-1.0) Estimated GFR (Cockcroft-Gault) 123.0 Glucose Level 132mg/dL (70-99) Calcium Level 8.9mg/dL (8.5-10.1) Phosphorus Level 2.1mg/dL (2.6-4.7) Magnesium Level 1.6mg/dL (1.8-2.4) Test 08/13/16 12:14 Glucose (Fingerstick) 146mg/dL (70-99) Microbiology 08/01/16 Blood Culture - Final, Complete NO GROWTH AFTER 5 DAYS 07/15/16 Urine Culture - Final, Complete 07/15/16 Urine Culture Result 1 (ROYA) - Final, Complete 07/15/16 Urine Culture Result 2 (ROYA) - Final, Complete 07/15/16 Antimicrobic Susceptibility - Final, Complete 07/29/16 Aerobic Culture - Final, Complete 07/29/16 Aerobic Culture Result 1 (ROYA) - Final, Complete Medications Current Medications Piperacillin Sod/ Tazobactam Sod/ Sodium Chloride (Zosyn/Iv Sodium Chloride 0.9 % 100ml) 100 ml @ 200 mls/hr 1X ONCE IV Last administered on 07/15/16 22:56; Start 07/15/16 at 22:00; Stop 07/15/16 at 22:29; Status DC Fentanyl Citrate 50 mcg 50 mcg PRN Q15MIN PRN IV PAIN GREATER THAN 3/10 Last administered on 07/16/16 00:30; Start 07/15/16 at 21:45; Stop 07/16/16 at 02:00; Status DC Sodium Chloride 1,000 ml @ 1,000 mls/hr 1X ONCE IV Last administered on 21:59; Start 07/15/16 at 22:00; Stop 07/15/16 at 22:59; Status DC Sodium Chloride (Iv Sodium Chloride 0.9% 500ml Bag) 500 ml @ 500 mls/hr 1X ONCE IV Last administered on 07/15/16 22:00; Start 07/15/16 at 22:00; Stop at 22:59; Status DC Ondansetron HCl (Zofran) 4 mg PRN Q8HRS PRN IV NAUSEA/VOMITING; Start 07/15/16 at 23:30; Stop 07/16/16 at 08:52; Status DC Fentanyl Citrate 50 mcg 50 mcg PRN Q2HR PRN IV SEVERE PAIN Last administered on 07/16/16 08:10; Start 07/15/16 at 23:30; Stop 07/16/16 at 08:52; Status DC Sodium Chloride (Iv Sodium Chloride 0.9% 1000ml Bag) 1,000 ml @ 150 mls/hr Q6H40M IV Last administered on 07/15/16 02:00; Start 07/15/16 at 23:45; Stop 07/16/16 at 08:52; Status DC Acetaminophen (Tylenol) 650 mg PRN Q4HRS PRN PO FEVER; Start 07/15/16 at 23:30; Stop 07/16/16 at 23:29; Status DC Info (Do NOT chart on this placeholder) 1 each PRN DAILY PRN MC NEEDS VERIFICATION; Start 07/16/16 at 03:00; Status Cancel Acetaminophen 650 mg 650 mg PRN Q4HRS PRN PO MILD PAIN / TEMP Last administered on 07/28/16 07:42; Start 07/16/16 at 08:45; Stop 07/29/16 at 08:33 ; Status DC Piperacillin Sod/ Tazobactam Sod 3.375 gm/Sodium Chloride 50 ml @ 100 mls/hr Q6HRS IV Last administered on 07/18/16 05:50; Start 07/16/16 at 10:00; Stop 07/18 at 13:28; Status DC Linezolid (Zyvox Premix) 300 ml @ 300 mls/hr Q12HR IV Last administered on 07/18 08:34; Start 07/16/16 at 10:00; Stop 07/18/16 at 13:28; Status DC Hydromorphone HCl (Dilaudid) 2 mg PRN Q4HRS PRN IV MODERATE PAIN Last administered on 08/09/16 06:39; Start 07/16/16 at 08:45; Stop 08/09/16 at 17:35 ; Status DC Hydromorphone HCl (Dilaudid) 4 mg PRN Q4HRS PRN IV SEVERE PAIN Last administered on 07/30/16 09:23; Start 07/16/16 at 08:45; Stop 07/31/16 at 15:01 ; Status DC Pantoprazole Sodium (Protonix) 40 mg DAILYAC PO Last administered on 07/27/16 11:11; Start 07/16/16 at 09:30; Stop 07/29/16 at 08:44; Status DC Hyoscyamine (Anaspaz) 0.125 mg Q6HRS PO Last administered on 07/20/16 05:20; Start 07/16/16 at 12:00; Stop 07/20/16 at 08:58; Status DC Phenazopyridine HCl (Pyridium) 200 mg TID PO Last administered on 07/20/16 08: 25; Start 07/16/16 at 09:30; Stop 07/20/16 at 08:58; Status DC Lorazepam (Ativan) 0.5 mg PRN BID PRN PO ANXIETY / AGITATION Last administered on 07/29/16 02:16; Start 07/16/16 at 08:45; Stop 07/31/16 at 15:01; Status DC Simethicone (Gas-X) 80 mg PRN Q4HRS PRN PO GAS / BLOATING Last administered on 07/24/16 22:30; Start 07/16/16 at 08:45; Stop 07/31/16 at 15:01; Status DC Zolpidem Tartrate 5 mg 5 mg PRN QHS PRN PO INSOMNIA Last administered on 23:14; Start 07/16/16 at 08:45; Stop 07/31/16 at 15:01; Status DC Potassium Chloride/Dextrose/ Sod Cl 1,000 ml @ 80 mls/hr [id number] IV Last administered on 07/16/16 10:54; Start 07/16/16 at 09:30; Stop 07/16/16 at 21:59; Status DC Fluconazole/ Sodium Chloride (Diflucan 200mg/ 100ml Premix) 100 ml @ 100 mls/ hr Q24H IV Last administered on 07/18/16 11:43; Start 07/16/16 at 11:00; Stop at 13:28; Status DC Info 1 each 1 each PRN DAILY PRN MC SEE COMMENTS Last administered on 12:41; Start 07/16/16 at 10:00; Stop 08/01/16 at 11:24; Status DC Sodium Chloride 220 meq/Sodium Acetate 90 meq/ Potassium Chloride 50 meq/ Potassium Acetate 15 meq/Potassium Phosphate 10 mmol/ Magnesium Sulfate 50 meq/ Calcium Gluconate 6 meq/ Multivitamins/ Minerals 10 ml/ Chromium/Copper/ Manganese/Seleni/ Zn 1 ml/Total Parenteral Nutrition/Amino Acids/Dextro... 1, 920 ml @ 80 mls/hr TPN CONT IV ; Start 07/16/16 at 22:00; Stop 07/16/16 at 22:00 ; Status DC Sodium Chloride/ Sodium Acetate/ Potassium Chloride/ Potassium Acetate/ Potassium Phosphate/ Magnesium Sulfate/ Calcium Gluconate/ Multivitamins/ Minerals/Chromium/ Copper/Manganese/ Seleni/Zn/Total Parenteral Nutrition/Amino Acids/Dextrose/ Fat Emulsion Intravenous (Sodium Chlori... 1,820 ml @ 75.833 mls/ hr TPN CONT IV Last administered on 07/16/16 21:03; Start 07/16/16 at 22: 00; Stop 07/17/16 at 21:59; Status DC Ondansetron HCl (Zofran) 4 mg PRN Q6HRS PRN IV NAUSEA/VOMITING Last administered on 07/21/16 08:48; Start 07/16/16 at 17:15; Stop 07/31/16 at 15:01; Status DC Diphenhydramine HCl (Benadryl) 25 mg PRN Q6HRS PRN PO ITCHING Last administered on 07/25/16 23:38; Start 07/16/16 at 17:45; Stop 07/31/16 at 15:01 ; Status DC Lidocaine (Xylocaine) 1 sang BID TP Last administered on 08/13/16 08:29; Start 07/17/16 at 09:00 Zinc Oxide 1 sang 1 sang BID TP Last administered on 08/13/16 08:29; Start at 09:30 Sodium Chloride/ Sodium Acetate/ Potassium Chloride/ Potassium Acetate/ Potassium Phosphate/ Magnesium Sulfate/ Calcium Gluconate/ Multivitamins/ Minerals/Chromium/ Copper/Manganese/ Seleni/Zn/Total Parenteral Nutrition/Amino Acids/Dextrose/ Fat Emulsion Intravenous (Sodium Chlori... 1,920 ml @ 80 mls/ hr TPN CONT IV Last administered on 07/17/16 22:13; Start 07/17/16 at 22:00; Stop 07/18/16 at 21:59; Status DC Furosemide 40 mg 40 mg 1X ONCE IVP Last administered on 07/18/16 11:43; Start 07/18/16 at 11:00; Stop 07/18/16 at 11:07; Status DC Sodium Chloride 220 meq/Sodium Acetate 90 meq/ Potassium Chloride 50 meq/ Potassium Acetate 15 meq/Potassium Phosphate 10 mmol/ Magnesium Sulfate 50 meq/ Calcium Gluconate 3 meq/ Multivitamins/ Minerals 10 ml/ Chromium/Copper/ Manganese/Seleni/ Zn 1 ml/Total Parenteral Nutrition/Amino Acids/Dextro... 1, 920 ml @ 80 mls/hr TPN CONT IV Last administered on 07/19/16 00:03; Start 07/18/16 at 22:00; Stop 07/19/16 at 21:59; Status DC Meropenem 1 gm/ Sodium Chloride 100 ml @ 200 mls/hr Q8HRS IV Last administered on 07/20/16 05:21; Start 07/18/16 at 14:00; Stop 07/20/16 at 11:25; Status DC Micafungin Sodium 100 mg/Dextrose 100 ml @ 100 mls/hr Q24H IV Last administered on 07/19/16 15:05; Start 07/18/16 at 14:00; Stop 07/20/16 at 11:25; Status DC Daptomycin/Sodium Chloride (Cubicin/Iv Sodium Chloride 0.9% 50ml) 50 ml @ 100 mls/hr Q24H IV Last administered on 07/19/16 16:56; Start 07/18/16 at 15:00; Stop 07/20/16 at 11:25; Status DC Alteplase, Recombinant (Cathflo) 2 mg 1X ONCE INT CAT Last administered on 07/19 06:24; Start 07/19/16 at 07:00; Stop 07/19/16 at 07:01; Status DC Gentamicin Sulfate 1 each 1 each PRN DAILY PRN MC SEE COMMENTS Last administered on 07/25/16 15:31; Start 07/19/16 at 12:15; Stop 07/25/16 at 16:14 ; Status DC Gentamicin Sulfate/Sodium Chloride (Iv Sodium Chloride 0.9% 100ml) 106.75 ml @ 106.75 mls/hr Q24H IV Last administered on 07/25/16 15:31; Start 07/19/16 at 13 :00; Stop 07/25/16 at 16:12; Status DC Gentamicin Sulfate 1 each 1 each 1X ONCE MC Last administered on 07/19/16 23: 00; Start 07/19/16 at 23:00; Stop 07/19/16 at 23:01; Status DC Sodium Chloride/ Sodium Acetate/ Potassium Chloride/ Potassium Acetate/ Potassium Phosphate/ Magnesium Sulfate/ Calcium Gluconate/ Multivitamins/ Minerals/Chromium/ Copper/Manganese/ Seleni/Zn/Total Parenteral Nutrition/Amino Acids/Dextrose/ Fat Emulsion Intravenous (Sodium Chlori... 1,920 ml @ 80 mls/ hr TPN CONT IV Last administered on 07/19/16 20:51; Start 07/19/16 at 22:00; Stop 07/20/16 at 21:59; Status DC Hyoscyamine (Anaspaz) 0.125 mg PRN Q6HRS PRN PO BLADDER SPASM; Start 07/20/16 at 09:00; Stop 07/31/16 at 15:01; Status DC Phenazopyridine HCl 200 mg 200 mg PRN TID PRN PO BLADDER SPASM Last administered on 07/21/16 20:14; Start 07/20/16 at 09:00; Stop 07/31/16 at 15:01; Status DC Linezolid 300 ml @ 300 mls/hr Q12HR IV Last administered on 07/25/16 09:02; Start 07/20/16 at 12:00; Stop 07/25/16 at 16:12; Status DC Sodium Chloride 220 meq/Sodium Acetate 90 meq/ Potassium Chloride 50 meq/ Potassium Acetate 15 meq/Potassium Phosphate 10 mmol/ Magnesium Sulfate 50 meq/ Calcium Gluconate 3 meq/ Multivitamins/ Minerals 10 ml/ Chromium/Copper/ Manganese/Seleni/ Zn 1 ml/Total Parenteral Nutrition/Amino Acids/Dextro... 1, 920 ml @ 80 mls/hr TPN CONT IV Last administered on 07/20/16 21:30; Start 07/20/16 at 22:00; Stop 07/21/16 at 21:59; Status DC Sodium Chloride/ Sodium Acetate/ Potassium Chloride/ Potassium Acetate/ Potassium Phosphate/ Magnesium Sulfate/ Multivitamins/ Minerals/Chromium/ Copper /Manganese/ Seleni/Zn/Total Parenteral Nutrition/Amino Acids/Dextrose/ Fat Emulsion Intravenous (Sodium Chloride/ Potass... 1,920 ml @ 80 mls/hr TPN CONT IV Last administered on 07/21/16 22:05; Start 07/21/16 at 22:00; Stop at 21:59; Status DC Alteplase, Recombinant 2 mg 2 mg PRN DAILY PRN INT CAT INFLAMMATION Last administered on 07/27/16 11:31; Start 07/21/16 at 15:00 Sodium Chloride 220 meq/Sodium Acetate 90 meq/ Potassium Chloride 50 meq/ Potassium Acetate 15 meq/Potassium Phosphate 10 mmol/ Magnesium Sulfate 50 meq/ Multivitamins/ Minerals 10 ml/ Chromium/Copper/ Manganese/Seleni/ Zn 1 ml/Total Parenteral Nutrition/Amino Acids/Dextrose/ Fat Emuls... 1,920 ml @ 80 mls/hr TPN CONT IV Last administered on 07/22/16 20:53; Start 07/22/16 at 22:00; Stop 07/23/16 at 21:59; Status DC Sodium Chloride/ Sodium Acetate/ Potassium Chloride/ Potassium Acetate/ Potassium Phosphate/ Magnesium Sulfate/ Multivitamins/ Minerals/Chromium/ Copper /Manganese/ Seleni/Zn/Total Parenteral Nutrition/Amino Acids/Dextrose/ Fat Emulsion Intravenous (Sodium Chloride/ Potass... 1,920 ml @ 80 mls/hr TPN CONT IV Last administered on 07/23/16 21:16; Start 07/23/16 at 22:00; Stop 07/24 at 21:59; Status DC Gentamicin Sulfate 1 each 1 each 1X ONCE MC ; Start 07/23/16 at 22:00; Stop 07/23 at 22:01; Status Cancel Sodium Chloride/ Sodium Acetate/ Potassium Chloride/ Potassium Acetate/ Potassium Phosphate/ Magnesium Sulfate/ Multivitamins/ Minerals/Chromium/ Copper /Manganese/ Seleni/Zn/Total Parenteral Nutrition/Amino Acids/Dextrose/ Fat Emulsion Intravenous (Sodium Chloride/ Potass... 1,920 ml @ 80 mls/hr TPN CONT IV Last administered on 07/24/16 21:15; Start 07/24/16 at 22:00; Stop 04/30 at 21:59; Status DC Gentamicin Sulfate 1 each 1X ONCE MC ; Start 07/25/16 at 12:30; Stop 07/25/16 at 12:31; Status Cancel Amlodipine Besylate 5 mg 5 mg DAILY PO Last administered on 07/27/16 11:12; Start 07/25/16 at 12:00; Stop 07/29/16 at 08:44; Status DC Sodium Chloride 220 meq/Sodium Acetate 90 meq/ Potassium Chloride 30 meq/ Potassium Acetate 15 meq/Potassium Phosphate 10 mmol/ Magnesium Sulfate 50 meq/ Multivitamins/ Minerals 10 ml/ Chromium/Copper/ Manganese/Seleni/ Zn 1 ml/Total Parenteral Nutrition/Amino Acids/Dextrose/ Fat Emuls... 1,920 ml @ 80 mls/hr TPN CONT IV Last administered on 07/25/16 22:25; Start 07/25/16 at 22:00; Stop 07/26/16 at 21:59; Status DC Sodium Chloride/ Sodium Acetate/ Potassium Chloride/ Potassium Acetate/ Potassium Phosphate/ Magnesium Sulfate/ Multivitamins/ Minerals/Chromium/ Copper /Manganese/ Seleni/Zn/Total Parenteral Nutrition/Amino Acids/Dextrose/ Fat Emulsion Intravenous (Sodium Chloride/ Potass... 1,920 ml @ 80 mls/hr TPN CONT IV Last administered on 07/26/16 23:16; Start 07/26/16 at 22:00; Stop at 21:59; Status DC Furosemide 20 mg 20 mg 1X ONCE IVP Last administered on 07/27/16 11:31; Start 07/27/16 at 09:00; Stop 07/27/16 at 09:01; Status DC Daptomycin 340 mg/ Sodium Chloride 50 ml @ 100 mls/hr Q24H IV Last administered on 07/29/16 15:05; Start 07/27/16 at 13:00; Stop 07/30/16 at 07:25 ; Status DC Piperacillin Sod/ Tazobactam Sod 3.375 gm/Sodium Chloride 50 ml @ 100 mls/hr Q6HRS IV Last administered on 07/30/16 05:30; Start 07/27/16 at 12:30; Stop at 07:25; Status DC Fluconazole/ Sodium Chloride 100 ml @ 100 mls/hr Q24H IV Last administered on 07/28/16 13:32; Start 07/27/16 at 13:00; Stop 07/29/16 at 00:53; Status DC Sodium Chloride 1,000 ml @ 1,000 mls/hr 1X ONCE IV Last administered on 12:34; Start 07/27/16 at 12:30; Stop 07/27/16 at 13:29; Status DC Sodium Chloride 220 meq/Sodium Acetate 90 meq/ Potassium Chloride 30 meq/ Potassium Acetate 15 meq/Potassium Phosphate 10 mmol/ Magnesium Sulfate 45 meq/ Multivitamins/ Minerals 10 ml/ Chromium/Copper/ Manganese/Seleni/ Zn 1 ml/Total Parenteral Nutrition/Amino Acids/Dextrose/ Fat Emuls... 1,920 ml @ 80 mls/hr TPN CONT IV Last administered on 07/27/16 22:38; Start 07/27/16 at 22:00; Stop 07/28/16 at 21:59; Status DC Sodium Chloride (Iv Sodium Chloride 0.9% 1000ml Bag) 1,000 ml @ 45 mls/hr [id number] IV Last administered on 07/28/16 03:24; Start 07/27/16 at 17:00; Stop 07/28/16 at 10:27; Status DC Acetaminophen 650 mg 650 mg PRN Q6HRS PRN NC fever Last administered on 03:57; Start 07/27/16 at 16:30; Stop 07/29/16 at 08:33; Status DC Sodium Chloride 1,000 ml @ 427.5 mls/ hr Q2H21M IV Last administered on 19:30; Start 07/27/16 at 19:30; Stop 07/27/16 at 23:30; Status DC Sodium Chloride 220 meq/Sodium Acetate 90 meq/ Potassium Chloride 30 meq/ Potassium Acetate 15 meq/Potassium Phosphate 10 mmol/ Magnesium Sulfate 45 meq/ Multivitamins/ Minerals 10 ml/ Chromium/Copper/ Manganese/Seleni/ Zn 1 ml/Total Parenteral Nutrition/Amino Acids/Dextrose/ Fat Emuls... 1,920 ml @ 80 mls/hr TPN CONT IV Last administered on 07/28/16 21:43; Start 07/28/16 at 22:00; Stop 07/29/16 at 21:59; Status DC Micafungin Sodium/ Dextrose (Mycamine) 100 ml @ 100 mls/hr Q24H IV Last administered on 08/13/16 00:14; Start 07/29/16 at 01:00 Lorazepam (Ativan) 0.05 mg PRN Q4HRS PRN IV ANXIETY / AGITATION; Start at 02:30; Stop 07/29/16 at 02:48; Status DC Lorazepam (Ativan) 0.5 mg PRN Q4HRS PRN IV ANXIETY / AGITATION Last administered on 08/13/16 02:40; Start 07/29/16 at 03:00 Acetaminophen (Tylenol) 650 mg PRN Q4HRS PRN NC MILD PAIN / TEMP; Start at 08:30 Ketorolac Tromethamine (Toradol) 30 mg PRN Q6HRS PRN IV PAIN/FEVER Last administered on 07/30/16 00:50; Start 07/29/16 at 08:30; Stop 07/30/16 at 13:01 ; Status DC Pantoprazole Sodium 40 mg 40 mg DAILYAC IVP Last administered on 08/13/16 08:28 ; Start 07/29/16 at 09:00 Sodium Chloride 1,000 ml @ 45 mls/hr [id number] IV Last administered on 09:17; Start 07/29/16 at 08:45; Stop 07/31/16 at 15:01; Status DC Sodium Chloride/ Sodium Acetate/ Potassium Chloride/ Potassium Acetate/ Potassium Phosphate/ Magnesium Sulfate/ Multivitamins/ Minerals/Chromium/ Copper /Manganese/ Seleni/Zn/Total Parenteral Nutrition/Amino Acids/Dextrose/ Fat Emulsion Intravenous (Sodium Chloride/ Potass... 1,920 ml @ 80 mls/hr TPN CONT IV Last administered on 07/29/16 22:06; Start 07/29/16 at 22:00; Stop at 21:59; Status DC Lidocaine/Sodium Bicarbonate 20 ml 20 ml STK-MED ONCE IJ ; Start 07/29/16 at 13: 13; Stop 07/29/16 at 13:14; Status DC Heparin Sodium/ Sodium Chloride 500 ml @ As Directed STK-MED ONCE .ROUTE ; Start 07/29/16 at 13:13; Stop 07/29/16 at 13:14; Status DC Lidocaine/ Epinephrine (Xylocaine 1%-Epi 1:100,000) 20 ml STK-MED ONCE .ROUTE ; Start 07/29/16 at 13:22; Stop 07/29/16 at 13:23; Status DC Midazolam HCl (Versed) 5 mg STK-MED ONCE .ROUTE ; Start 07/29/16 at 13:32; Stop 07/29/16 at 13:33; Status DC Fentanyl Citrate (Fentanyl 5ml Vial) 250 mcg STK-MED ONCE .ROUTE ; Start at 13:32; Stop 07/29/16 at 13:33; Status DC Heparin Sodium/ Sodium Chloride 1,000 unit 1X ONCE IART Last administered on 13:45; Start 07/29/16 at 13:45; Stop 07/29/16 at 13:48; Status DC Midazolam HCl (Versed) 5 mg 1X ONCE IV Last administered on 07/29/16 13:45; Start 07/29/16 at 13:45; Stop 07/29/16 at 13:48; Status DC Fentanyl Citrate (Fentanyl 5ml Vial) 250 mcg 1X ONCE IV Last administered on 13:45; Start 07/29/16 at 13:45; Stop 07/29/16 at 13:48; Status DC Lidocaine/ Epinephrine 20 ml 20 ml 1X ONCE IJ Last administered on 07/29/16 13:45; Start 07/29/16 at 13:45; Stop 07/29/16 at 13:48; Status DC Sodium Chloride 220 meq/Sodium Acetate 90 meq/ Potassium Chloride 15 meq/ Potassium Acetate 30 meq/Potassium Phosphate 10 mmol/ Magnesium Sulfate 45 meq/ Multivitamins/ Minerals 10 ml/ Chromium/Copper/ Manganese/Seleni/ Zn 1 ml/Total Parenteral Nutrition/Amino Acids/Dextrose/ Fat Emuls... 1,920 ml @ 80 mls/hr TPN CONT IV ; Start 07/30/16 at 22:00; Stop 07/31/16 at 21:59; Status DC Norepinephrine Bitartrate 8 mg/ Sodium Chloride 258 ml @ 1.93 mls/hr 1X ONCE IV Last administered on 07/30/16 11:17; Start 07/30/16 at 11:15; Stop at 15:43; Status DC Norepinephrine Bitartrate/Sodium Chloride (Levophed Vial/ Iv Sodium Chloride 0.9 % 250ml) 258 ml @ 0 mls/hr CONT PRN IV SEE I/O RECORD Last administered on 08/02 19:54; Start 07/30/16 at 11:15; Stop 08/04/16 at 09:29; Status DC Furosemide 60 mg 60 mg 1X ONCE IVP Last administered on 07/30/16 11:14; Start 07/30/16 at 11:15; Stop 07/30/16 at 11:16; Status DC Sodium Chloride 500 ml @ 500 mls/hr Q1H IV Last administered on 07/30/16 17: 04; Start 07/30/16 at 14:30; Stop 07/30/16 at 15:29; Status DC Albumin Human 100 ml @ 100 mls/hr Q8HRS IV Last administered on 07/31/16 05: 37; Start 07/30/16 at 14:30; Stop 07/31/16 at 06:59; Status DC Furosemide/Sodium Chloride (Lasix Drip/Iv Sodium Chloride 0.9% 100ml) 100 ml @ 0 mls/hr CONT PRN IV SEE I/O RECORD Last administered on 07/31/16 03:17; Start 07/30/16 at 14:30; Stop 08/01/16 at 13:19; Status DC Ondansetron HCl (Zofran) 8 mg PRN Q8HRS PRN IV NAUSEA/VOMITING Last administered on 07/30/16 14:38; Start 07/30/16 at 14:30 Sodium Bicarbonate 50 meq 50 meq 1X ONCE IV Last administered on 07/30/16 14: 43; Start 07/30/16 at 14:30; Stop 07/30/16 at 14:31; Status DC Heparin Sodium/ Sodium Chloride 500 ml @ As Directed STK-MED ONCE .ROUTE ; Start 07/30/16 at 14:49; Stop 07/30/16 at 14:50; Status DC Lidocaine HCl 20 ml STK-MED ONCE .ROUTE ; Start 07/30/16 at 14:49; Stop at 14:50; Status DC Midazolam HCl (Versed) 2 mg STK-MED ONCE .ROUTE ; Start 07/30/16 at 15:19; Stop 07/30/16 at 15:20; Status DC Heparin Sodium/ Sodium Chloride 1,000 unit 1X ONCE IART Last administered on 15:44; Start 07/30/16 at 15:45; Stop 07/30/16 at 15:46; Status DC Midazolam HCl (Versed) 1.5 mg 1X ONCE IV Last administered on 07/30/16 15:44 ; Start 07/30/16 at 15:45; Stop 07/30/16 at 15:46; Status DC Lidocaine HCl 20 ml 1X ONCE IJ Last administered on 07/30/16 15:44; Start at 15:45; Stop 07/30/16 at 15:46; Status DC Heparin Sodium (Porcine) 81836 unit 10,000 unit STK-MED ONCE .ROUTE ; Start at 15:54; Stop 07/30/16 at 15:55; Status DC Fentanyl Citrate 30 ml @ 0 mls/hr CONT PRN PRN IV PROTOCOL Last administered on 08/08/16 10:21; Start 07/30/16 at 16:45; Stop 08/08/16 at 11:03; Status DC Sodium Bicarbonate/ Dextrose 1,150 ml @ 125 mls/hr 1X ONCE IV Last administered on 07/30/16 18:34; Start 07/30/16 at 17:30; Stop 07/31/16 at 02:41 ; Status DC Succinylcholine Chloride 200 mg 200 mg STK-MED ONCE .ROUTE ; Start 07/30/16 at 19:47; Stop 07/30/16 at 19:48; Status DC Propofol 100 ml @ As Directed STK-MED ONCE IV ; Start 07/30/16 at 19:48; Stop 07/30/16 at 19:49; Status DC Midazolam HCl (Versed 100mg/ 100ml Premix) 100 ml @ 0 mls/hr CONT PRN IV SEE I/ O RECORD Last administered on 08/03/16 12:18; Start 07/30/16 at 21:15 Sodium Bicarbonate 50 meq 50 meq 1X ONCE IV Last administered on 07/30/16 22: 15; Start 07/30/16 at 22:30; Stop 07/30/16 at 22:31; Status DC Dopamine HCl/ Dextrose 250 ml @ 11.513 mls/ hr CONT PRN IV SEE I/O RECORD Last administered on 07/31/16 20:16; Start 07/30/16 at 22:15; Stop 08/04/16 at 09:29; Status DC Sodium Bicarbonate/ Dextrose 1,150 ml @ 125 mls/hr Q9H12M IV Last administered on 08/01/16 09:30; Start 07/31/16 at 03:00; Stop 08/01/16 at 13:19 ; Status DC Propofol (Diprivan) 1,000 mg STK-MED ONCE IV ; Start 07/30/16 at 20:00; Stop at 08:16; Status DC Succinylcholine Chloride 200 mg 200 mg STK-MED ONCE .ROUTE ; Start 07/30/16 at 20:00; Stop 07/31/16 at 08:16; Status DC Tigecycline 50 mg/ Sodium Chloride 50 ml @ 100 mls/hr Q12HR IV Last administered on 08/04/16 09:01; Start 07/31/16 at 21:00; Stop 08/04/16 at 10:00 ; Status DC Tigecycline/ Sodium Chloride (Tygacil/Iv Sodium Chloride 0.9% 100ml) 100 ml @ 200 mls/hr 1X ONCE IV Last administered on 07/31/16 09:22; Start 07/31/16 at 09:00; Stop 07/31/16 at 09:29; Status DC Darbepoetin Sarbjit 60 mcg 60 mcg [id number] SQ Last administered on 08/07/16 21:41 ; Start 07/31/16 at 21:00 Albumin Human 100 ml @ 100 mls/hr 1X ONCE IV Last administered on 07/31/16 11:40; Start 07/31/16 at 11:15; Stop 07/31/16 at 12:14; Status DC Albumin Human 100 ml @ 100 mls/hr 1X ONCE IV Last administered on 07/31/16 12:03; Start 07/31/16 at 11:15; Stop 07/31/16 at 12:14; Status DC Sodium Chloride (Iv Sodium Chloride 0.9% 1000ml Bag) 1,000 ml @ 1,000 mls/hr Q1H PRN IV hypotension; Start 07/31/16 at 11:33; Stop 07/31/16 at 17:32; Status DC Info (PHARMACY MONITORING -- do not chart) 1 each PRN DAILY PRN MC SEE COMMENTS ; Start 07/31/16 at 11:45 Info (PHARMACY MONITORING -- do not chart) 1 each PRN DAILY PRN MC SEE COMMENTS ; Start 07/31/16 at 11:45; Status UNV Hydrocortisone Sodium Succinate (Solu-Cortef) 100 mg Q8HRS IV Last administered on 08/04/16 06:16; Start 08/01/16 at 07:00; Stop 08/04/16 at 09:29 ; Status DC Albuterol/ Ipratropium (Duoneb) 3 ml RTQID NEB Last administered on 08/13/16 12 :19; Start 08/01/16 at 08:00 Albuterol/ Ipratropium 3 ml 3 ml STK-MED ONCE .ROUTE Last administered on 07:34; Start 08/01/16 at 06:59; Stop 08/01/16 at 07:00; Status DC Sodium Chloride 1,000 ml @ 1,000 mls/hr Q1H PRN IV hypotension; Start 08/01/16 at 06:57; Stop 08/01/16 at 12:56; Status DC Albumin Human (Albuminar) 200 ml @ 200 mls/hr 1X PRN PRN IV Hypotension; Start 08/01/16 at 07:00; Stop 08/01/16 at 12:59; Status DC Info (PHARMACY MONITORING -- do not chart) 1 each PRN DAILY PRN MC SEE COMMENTS ; Start 08/01/16 at 07:00; Status UNV Info 1 each 1 each PRN DAILY PRN MC SEE COMMENTS Last administered on 08/12/16 10:49; Start 08/01/16 at 13:30; Stop 08/13/16 at 13:02; Status DC Sodium Chloride 220 meq/Sodium Acetate 90 meq/ Potassium Chloride 15 meq/ Potassium Acetate 30 meq/Potassium Phosphate 10 mmol/ Magnesium Sulfate 45 meq/ Multivitamins/ Minerals 10 ml/ Chromium/Copper/ Manganese/Seleni/ Zn 1 ml/Total Parenteral Nutrition/Amino Acids/Dextrose/ Fat Emuls... 1,920 ml @ 80 mls/hr TPN CONT IV Last administered on 08/01/16 21:56; Start 08/01/16 at 22:00; Stop 08/02/16 at 21:59; Status DC Potassium Chloride (KCl Premix 20meq) 50 ml @ 50 mls/hr Q1H IV Last administered on 08/01/16 19:05; Start 08/01/16 at 17:00; Stop 08/01/16 at 18:59 ; Status DC Insulin Aspart 0-6 UNITS TIDWMEALS SQ Last administered on 08/02/16 11:33; Start 08/02/16 at 12:00; Stop 08/02/16 at 14:34; Status DC Sodium Chloride 220 meq/Sodium Acetate 90 meq/ Potassium Chloride 15 meq/ Potassium Acetate 30 meq/Magnesium Sulfate 45 meq/ Multivitamins/ Minerals 10 ml / Chromium/Copper/ Manganese/Seleni/ Zn 1 ml/Total Parenteral Nutrition/Amino Acids/Dextrose/ Fat Emulsion Intravenous 1,920 ml @ 80 mls/hr TPN CONT IV Last administered on 08/02/16 21:34; Start 08/02/16 at 22:00; Stop 08/03/16 at 21:59; Status DC Levofloxacin/ Dextrose 150 ml @ 100 mls/hr 1X ONCE IV Last administered on 14:35; Start 08/02/16 at 14:00; Stop 08/02/16 at 15:29; Status DC Daptomycin/Sodium Chloride (Cubicin/Iv Sodium Chloride 0.9% 50ml) 50 ml @ 100 mls/hr ONCE ONCE IV Last administered on 08/02/16 14:34; Start 08/02/16 at 15 :00; Stop 08/02/16 at 15:29; Status DC Insulin Aspart 0-6 UNITS Q6HRS SQ Last administered on 08/11/16 18:13; Start 08/02/16 at 18:00 Sodium Chloride (Iv Sodium Chloride 0.9% 1000ml Bag) 1,000 ml @ 1,000 mls/hr Q1H PRN IV hypotension; Start 08/03/16 at 07:26; Stop 08/03/16 at 13:25; Status DC Diphenhydramine HCl (Benadryl) 25 mg 1X PRN PRN IV ITCHING; Start 08/03/16 at 07:30; Stop 08/04/16 at 07:29; Status DC Diphenhydramine HCl (Benadryl) 25 mg 1X PRN PRN IV ITCHING; Start 08/03/16 at 07:30; Stop 08/04/16 at 07:29; Status DC Sodium Chloride (Normal Saline Flush) 10 ml 1X PRN PRN IV AP catheter pack; Start 08/03/16 at 07:30; Stop 08/04/16 at 07:29; Status DC Sodium Chloride 10 ml 10 ml 1X PRN PRN IV INTAKE SPECIALIST catheter pack; Start 08/03/16 at 07:30; Stop 08/04/16 at 07:29; Status DC Sodium Chloride (Iv Sodium Chloride 0.9% 1000ml Bag) 1,000 ml @ 400 mls/hr Q2H30M PRN IV PATENCY; Start 08/03/16 at 07:26; Stop 08/03/16 at 19:25; Status DC Info 1 each 1 each PRN DAILY PRN MC SEE COMMENTS; Start 08/03/16 at 07:30; Status UNV Albumin Human 200 ml @ 200 mls/hr Q2HR IV Last administered on 08/03/16 10:00 ; Start 08/03/16 at 08:44; Stop 08/03/16 at 10:59; Status DC Sodium Chloride 160 meq/Sodium Acetate 60 meq/ Potassium Chloride 15 meq/ Potassium Acetate 30 meq/Magnesium Sulfate 25 meq/ Multivitamins/ Minerals 10 ml / Chromium/Copper/ Manganese/Seleni/ Zn 1 ml/Total Parenteral Nutrition/Amino Acids/Dextrose/ Fat Emulsion Intravenous 1,500 ml @ 62.5 mls/hr TPN CONT IV Last administered on 08/03/16 22:52; Start 08/03/16 at 22:00; Stop 08/04/16 at 21:59; Status DC Levofloxacin/ Dextrose 100 ml @ 100 mls/hr 1X ONCE IV Last administered on 10:50; Start 08/04/16 at 07:30; Stop 08/04/16 at 08:30; Status DC Daptomycin 450 mg/ Sodium Chloride 50 ml @ 100 mls/hr ONCE ONCE IV Last administered on 08/04/16 09:55; Start 08/04/16 at 08:00; Stop 08/04/16 at 08:30 ; Status DC Tigecycline/ Sodium Chloride (Tygacil/Iv Sodium Chloride 0.9% 50ml) 50 ml @ 100 mls/hr Q12HR IV Last administered on 08/09/16 07:20; Start 08/04/16 at 21: 00; Stop 08/09/16 at 09:42; Status DC Hydrocortisone Sodium Succinate 50 mg 50 mg Q8HRS IV Last administered on 05:39; Start 08/04/16 at 14:00; Stop 08/05/16 at 11:12; Status DC Furosemide 100 mg/ Sodium Chloride 100 ml @ 0 mls/hr CONT PRN IV SEE I/O RECORD Last administered on 08/09/16 06:43; Start 08/04/16 at 11:30; Stop 08/09 at 11:31; Status DC Sodium Chloride 160 meq/Sodium Acetate 60 meq/ Potassium Chloride 15 meq/ Potassium Acetate 30 meq/Magnesium Sulfate 25 meq/ Multivitamins/ Minerals 10 ml / Chromium/Copper/ Manganese/Seleni/ Zn 1 ml/Total Parenteral Nutrition/Amino Acids/Dextrose/ Fat Emulsion Intravenous 1,500 ml @ 62.5 mls/hr TPN CONT IV Last administered on 08/04/16 21:45; Start 08/04/16 at 22:00; Stop 08/06/16 at 08:48; Status DC Sodium Chloride 1,000 ml @ 1,000 mls/hr Q1H PRN IV hypotension; Start 08/04/16 at 12:00; Stop 08/04/16 at 17:59; Status DC Sodium Chloride (Iv Sodium Chloride 0.9% 1000ml Bag) 1,000 ml @ 400 mls/hr Q2H30M PRN IV PATENCY; Start 08/04/16 at 12:00; Stop 08/04/16 at 23:59; Status DC Info 1 each 1 each PRN DAILY PRN MC SEE COMMENTS; Start 08/04/16 at 16:30; Status UNV Levofloxacin/ Dextrose 100 ml @ 100 mls/hr 1X ONCE IV Last administered on 14:27; Start 08/05/16 at 14:00; Stop 08/05/16 at 14:59; Status DC Daptomycin/Sodium Chloride (Cubicin/Iv Sodium Chloride 0.9% 50ml) 50 ml @ 100 mls/hr 1X ONCE IV Last administered on 08/05/16 14:27; Start 08/05/16 at 14: 00; Stop 08/05/16 at 14:29; Status DC Heparin Sodium (Porcine) 10,000 unit STK-MED ONCE .ROUTE ; Start 08/05/16 at 09: 35; Stop 08/05/16 at 09:36; Status DC Lidocaine/Sodium Bicarbonate 20 ml 20 ml STK-MED ONCE IJ ; Start 08/05/16 at 09: 36; Stop 08/05/16 at 09:37; Status DC Heparin Sodium/ Sodium Chloride 500 ml @ As Directed STK-MED ONCE .ROUTE ; Start 08/05/16 at 09:36; Stop 08/05/16 at 09:37; Status DC Lidocaine/Sodium Bicarbonate (Buffered Lidocaine 1%) 2 ml 1X ONCE IJ Last administered on 08/05/16 10:04; Start 08/05/16 at 10:00; Stop 08/05/16 at 10:02 ; Status DC Heparin Sodium/ Sodium Chloride 60 unit 1X ONCE IV Last administered on 10:04; Start 08/05/16 at 10:00; Stop 08/05/16 at 10:02; Status DC Heparin Sodium (Porcine) 2,800 unit 1X ONCE INT CAT Last administered on 10:04; Start 08/05/16 at 10:00; Stop 08/05/16 at 10:02; Status DC Info (PHARMACY MONITORING -- do not chart) 1 each PRN DAILY PRN MC SEE COMMENTS ; Start 08/05/16 at 10:30; Stop 08/05/16 at 10:30; Status DC Info (PHARMACY MONITORING -- do not chart) 1 each PRN DAILY PRN MC SEE COMMENTS ; Start 08/05/16 at 10:30; Stop 08/05/16 at 10:30; Status DC Hydrocortisone Sodium Succinate 50 mg 50 mg BID IV Last administered on 07:49; Start 08/05/16 at 21:00; Stop 08/07/16 at 10:23; Status DC Sodium Chloride 160 meq/Sodium Acetate 60 meq/ Potassium Chloride 15 meq/ Potassium Acetate 30 meq/Magnesium Sulfate 25 meq/ Multivitamins/ Minerals 10 ml / Chromium/Copper/ Manganese/Seleni/ Zn 1 ml/Total Parenteral Nutrition/Amino Acids/Dextrose/ Fat Emulsion Intravenous 1,500 ml @ 62.5 mls/hr TPN CONT IV Last administered on 08/05/16 22:04; Start 08/05/16 at 22:00; Stop 08/06/16 at 21:59; Status DC Daptomycin 500 mg/ Sodium Chloride 50 ml @ 100 mls/hr Q24H IV Last administered on 08/12/16 18:25; Start 08/06/16 at 14:00; Stop 08/13/16 at 08:23; Status DC Sodium Chloride (Iv Sodium Chloride 0.9% 1000ml Bag) 1,000 ml @ 1,000 mls/hr Q1H PRN IV hypotension; Start 08/06/16 at 08:21; Stop 08/06/16 at 14:20; Status DC Diphenhydramine HCl (Benadryl) 25 mg 1X PRN PRN IV ITCHING; Start 08/06/16 at 08:30; Stop 08/07/16 at 08:29; Status DC Diphenhydramine HCl (Benadryl) 25 mg 1X PRN PRN IV ITCHING; Start 08/06/16 at 08:30; Stop 08/07/16 at 08:29; Status DC Sodium Chloride (Normal Saline Flush) 10 ml 1X PRN PRN IV AP catheter pack; Start 08/06/16 at 08:30; Stop 08/07/16 at 08:29; Status DC Sodium Chloride 10 ml 10 ml 1X PRN PRN IV INTAKE SPECIALIST catheter pack; Start 08/06/16 at 08:30; Stop 08/07/16 at 08:29; Status DC Sodium Chloride (Iv Sodium Chloride 0.9% 1000ml Bag) 1,000 ml @ 400 mls/hr Q2H30M PRN IV PATENCY; Start 08/06/16 at 08:21; Stop 08/06/16 at 20:20; Status DC Info 1 each 1 each PRN DAILY PRN MC SEE COMMENTS; Start 08/06/16 at 08:30; Status UNV Albumin Human 200 ml @ 200 mls/hr 1X STAT IV Last administered on 08/06/16 10:09; Start 08/06/16 at 09:52; Stop 08/06/16 at 10:51; Status DC Sodium Chloride/ Sodium Acetate/ Potassium Chloride/ Potassium Acetate/ Magnesium Sulfate/ Multivitamins/ Minerals/Chromium/ Copper/Manganese/ Seleni/Zn /Total Parenteral Nutrition/Amino Acids/Dextrose/ Fat Emulsion Intravenous ( Sodium Chloride/ Infuvite Adult/ Multitrace-5 Conc/ Tpn - Tpn Flu... 1,500 ml @ 62.5 mls/hr TPN CONT IV Last administered on 08/06/16 21:57; Start at 22:00; Stop 08/07/16 at 21:59; Status DC Darbepoetin Sarbjit 60 mcg 60 mcg [id number] SQ ; Start 08/07/16 at 21:00; Status UNV Potassium Chloride (KCl Premix 20meq) 50 ml @ 50 mls/hr Q1H IV Last administered on 08/07/16 10:46; Start 08/07/16 at 08:00; Stop 08/07/16 at 09:59 ; Status DC Hydrocortisone Sodium Succinate 25 mg 25 mg BID IV ; Start 08/07/16 at 21:00; Stop 08/07/16 at 21:00; Status DC Sodium Chloride (Iv Sodium Chloride 0.9% 1000ml Bag) 1,000 ml @ 1,000 mls/hr Q1H PRN IV hypotension; Start 08/07/16 at 12:08; Stop 08/07/16 at 18:07; Status DC Diphenhydramine HCl (Benadryl) 25 mg 1X PRN PRN IV ITCHING; Start 08/07/16 at 12:15; Stop 08/08/16 at 12:14; Status DC Diphenhydramine HCl (Benadryl) 25 mg 1X PRN PRN IV ITCHING; Start 08/07/16 at 12:15; Stop 08/08/16 at 12:14; Status DC Sodium Chloride (Normal Saline Flush) 10 ml 1X PRN PRN IV AP catheter pack; Start 08/07/16 at 12:15; Stop 08/08/16 at 12:14; Status DC Sodium Chloride (Normal Saline Flush) 10 ml 1X PRN PRN IV INTAKE SPECIALIST catheter pack; Start 08/07/16 at 12:15; Stop 08/08/16 at 12:14; Status DC Info (PHARMACY MONITORING -- do not chart) 1 each PRN DAILY PRN MC SEE COMMENTS ; Start 08/07/16 at 12:15; Status UNV Info 1 each 1 each PRN DAILY PRN MC SEE COMMENTS; Start 08/07/16 at 12:15; Status UNV Sodium Chloride 160 meq/Sodium Acetate 60 meq/ Potassium Chloride 55 meq/ Potassium Acetate 30 meq/Magnesium Sulfate 25 meq/ Multivitamins/ Minerals 10 ml / Chromium/Copper/ Manganese/Seleni/ Zn 1 ml/Total Parenteral Nutrition/Amino Acids/Dextrose/ Fat Emulsion Intravenous 1,500 ml @ 62.5 mls/hr TPN CONT IV Last administered on 08/07/16 21:41; Start 08/07/16 at 22:00; Stop 08/08/16 at 21:59; Status DC Potassium Chloride (KCl Premix 20meq) 50 ml @ 50 mls/hr 1X ONCE IV Last administered on 08/08/16 09:04; Start 08/08/16 at 10:00; Stop 08/08/16 at 10:59 ; Status DC Fentanyl Citrate 25 mcg 25 mcg PRN Q4HRS PRN IV PAIN Last administered on 09:23; Start 08/08/16 at 11:00; Stop 08/13/16 at 11:33; Status DC Potassium Chloride 50 ml @ 50 mls/hr 1X ONCE IV Last administered on 15:33; Start 08/08/16 at 11:15; Stop 08/08/16 at 12:14; Status DC Sodium Chloride 140 meq/Sodium Acetate 60 meq/ Potassium Chloride 70 meq/ Potassium Acetate 30 meq/Magnesium Sulfate 25 meq/ Multivitamins/ Minerals 10 ml / Chromium/Copper/ Manganese/Seleni/ Zn 1 ml/Total Parenteral Nutrition/Amino Acids/Dextrose/ Fat Emulsion Intravenous 1,500 ml @ 62.5 mls/hr TPN CONT IV Last administered on 08/08/16 21:42; Start 08/08/16 at 22:00; Stop 08/09/16 at 11:30; Status DC Tigecycline 50 mg/ Sodium Chloride 50 ml @ 100 mls/hr Q12HR IV ; Start at 09:42; Stop 08/09/16 at 10:03; Status DC Dextrose 1,000 ml @ 80 mls/hr [id number] IV ; Start 08/09/16 at 11:45; Stop at 11:57; Status DC Dextrose/Sodium Chloride 1,000 ml @ 50 mls/hr Q20H IV Last administered on 12:22; Start 08/09/16 at 12:00; Stop 08/10/16 at 10:09; Status DC Sodium Chloride 10 meq/Sodium Acetate 10 meq/ Potassium Chloride 40 meq/ Potassium Acetate 10 meq/Magnesium Sulfate 15 meq/ Multivitamins/ Minerals 10 ml / Chromium/Copper/ Manganese/Seleni/ Zn 1 ml/Total Parenteral Nutrition/Amino Acids/Dextrose/ Fat Emulsion Intravenous 1,512 ml @ 63 mls/hr TPN CONT IV Last administered on 08/10/16 10:44; Start 08/09/16 at 22:00; Stop 08/10/16 at 21:59; Status DC Dextrose 1,000 ml @ 100 mls/hr Q10H IV Last administered on 08/10/16 10:37; Start 08/10/16 at 10:15; Stop 08/10/16 at 13:48; Status DC Potassium Chloride 50 ml @ 50 mls/hr 1X ONCE IV Last administered on 10:39; Start 08/10/16 at 10:30; Stop 08/10/16 at 11:29; Status DC Dextrose 1,000 ml @ 100 mls/hr Q10H IV Last administered on 08/13/16 05:12; Start 08/10/16 at 14:00; Stop 08/13/16 at 11:33; Status DC Potassium Chloride 40 meq/ Potassium Acetate 10 meq/Magnesium Sulfate 15 meq/ Multivitamins/ Minerals 10 ml/ Chromium/Copper/ Manganese/Seleni/ Zn 1 ml/Total Parenteral Nutrition/Amino Acids/Dextrose/ Fat Emulsion Intravenous 1,512 ml @ 63 mls/hr TPN CONT IV Last administered on 08/10/16 22:13; Start 08/10/16 at 22:00; Stop 08/11/16 at 21:59; Status DC Potassium Chloride 50 ml @ 50 mls/hr Q1H IV Last administered on 08/11/16 13: 05; Start 08/11/16 at 11:00; Stop 08/11/16 at 12:59; Status DC Potassium Chloride 20 meq/ Potassium Acetate 30 meq/Magnesium Sulfate 15 meq/ Multivitamins/ Minerals 10 ml/ Chromium/Copper/ Manganese/Seleni/ Zn 1 ml/Total Parenteral Nutrition/Amino Acids/Dextrose/ Fat Emulsion Intravenous 1,512 ml @ 63 mls/hr TPN CONT IV Last administered on 08/11/16 21:31; Start 08/11/16 at 22:00; Stop 08/12/16 at 21:59; Status DC Potassium Chloride/ Potassium Acetate/ Magnesium Sulfate/ Multivitamins/ Minerals/Chromium/ Copper/Manganese/ Seleni/Zn/Total Parenteral Nutrition/Amino Acids/Dextrose/ Fat Emulsion Intravenous (Infuvite Adult/ Multitrace-5 Conc/ Tpn - Tpn Fluid/ Dextrose 70%-Water Iv Soln/ Intralipid 20%) 1,512 ml @ 63 mls/ hr TPN CONT IV Last administered on 08/12/16 21:27; Start 08/12/16 at 22:00 Potassium Chloride 40 meq 40 meq 1X ONCE PO ; Start 08/13/16 at 12:00; Stop 08/13 at 12:01; Status DC Magnesium Sulfate/ Dextrose (Magnesium Sulfate PREMIX 2GM) 50 ml @ 25 mls/hr 1X ONCE IV Last administered on 08/13/16 12:24; Start 08/13/16 at 12:00; Stop 08/13/16 at 13:59; Status DC Hydromorphone HCl 2 mg 2 mg PRN Q4HRS PRN IV PAIN; Start 08/13/16 at 11:30 Potassium Chloride 50 ml @ 50 mls/hr Q1H IV Last administered on 08/13/16 13:46 ; Start 08/13/16 at 13:00; Stop 08/13/16 at 14:59 Potassium Chloride/Dextrose/ Sod Cl (KCl 20 Meq In [id number]-NS) 1,000 ml @ 125 mls/ hr 1X ONCE IV Last administered on 08/13/16 13:11; Start 08/13/16 at 13:30; Stop 08/13/16 at 21:29 Active Scripts Active Dilaudid (Hydromorphone Hcl) 4 Mg Tablet 4 Mg PO Q6HRS Phenazopyridine Hcl 200 Mg Tablet 200 Mg PO PRN TID PRN FENTANYL 50mcg/hr (Fentanyl) 1 Each Patch.td72 1 Patch TD Q3DAYS Anaspaz (Hyoscyamine Sulfate) 0.125 Mg Tab.rapdis 0.125 Mg PO Q6HRS PRN Cefpodoxime Proxetil 200 Mg Tablet 200 Mg PO BID Sertraline Hcl 50 Mg Tablet 100 Mg PO DAILY 30 Days Protonix (Pantoprazole Sodium) 40 Mg Tablet.dr 1 Tab PO DAILY Zinc Oxide 56.7 Gm Oint...g. 1 Sang TP BID Lidocaine 35.44 Gm Oint...g. 1 Sang TP BID Ondansetron Odt (Ondansetron) 4 Mg Tab.rapdis 8 Mg PO PRN Q8HRS PRN Gas-X (Simethicone) 80 Mg Tab.chew 80 Mg PO PRN QID PRN Reported Lorazepam 0.5 Mg Tablet 0.5 Mg PO PRN BID PRN Vitals/I & O Vital Sign - Last 24 Hours 08/12/16 08/12/16 08/12/16 08/12/16 14:30 16:00 16:00 16:02 Pulse 84 Resp 24 B/P 139/68 Pulse Ox 100 100 O2 Delivery Room Air Room Air Room Air O2 Flow Rate 2.0 3/1/17 3/1/17 3/1/17 3/1/17 18:25 20:00 20:00 20:28 Temp 98.2 98.2 Pulse 65 Resp 17 B/P 100/60 Pulse Ox 100 100 100 O2 Delivery Room Air Room Air Room Air Room Air O2 Flow Rate 2.0 08/12/16 08/12/16 08/13/16 08/13/16 22:44 23:59 02:41 03:15 Temp 98.3 98.3 Pulse 77 Resp 18 16 B/P 119/62 Pulse Ox 100 100 100 100 O2 Delivery Room Air Room Air Room Air Room Air 08/13/16 08/13/16 08/13/16 08/13/16 04:00 08:00 08:00 08:13 Temp 98.2 98.3 98.2 98.3 Pulse 79 86 Resp 17 B/P 119/67 126/72 Pulse Ox 100 100 100 O2 Delivery Room Air Room Air Room Air Room Air 08/13/16 08/13/16 12:00 12:20 Temp 98.0 98.0 Pulse 86 Resp 19 B/P 122/69 Pulse Ox 100 100 O2 Delivery Room Air Room Air Intake and Output 08/12/16 08/12/16 08/13/16 15:00 23:00 07:00 Intake Total 30 ml 4600 ml Output Total 1375 ml 900 ml Balance 30 ml -1375 ml 3700 ml MATT PALACIOS MD Aug 13, 2016 14:22
[2016-08-13 14:30] VITALS: BP 98/61
--- NOTE | 2016-08-13 15:18 | PDOC ---
PULMONARY PROGRESS NOTES Subjective no resp complains Vitals Vital Signs Date Time Temp Pulse Resp B/P Pulse Ox O2 Delivery O2 Flow Rate FiO2 08/13/16 12:20 100 Room Air 08/13/16 12:00 98.0 86 19 122/69 98.0 08/12/16 18:25 2.0 General: Alert, No acute distress HEENT: Other (nc at perrl, nose clear, orally intuvated. ) Lungs: Clear Cardiovascular: S1, S2 Abdomen: Other (EC fistula) Neuro Exam: Alert Skin: Warm Labs Laboratory Tests Test 08/11/16 18:08 08/12/16 00:10 08/12/16 05:50 08/12/16 19:15 Glucose (Fingerstick) 174mg/dL (70-99) 164mg/dL (70-99) 133mg/dL (70-99) 109mg/dL (70-99) White Blood Count 5.0x10^3/uL (4.0-11.0) Red Blood Count 3.15x10^6/uL (3.50-5.40) Hemoglobin 8.5g/dL (12.0-15.5) Hematocrit 26.7% (36.0-47.0) Mean Corpuscular Volume 85fL (79-100) Mean Corpuscular Hemoglobin 27pg (25-35) Mean Corpuscular Hemoglobin Concent 32g/dL (31-37) Red Cell Distribution Width 24.7% (11.5-14.5) Platelet Count 137x10^3/uL (140-400) Neutrophils (%) (Auto) 55% (31-73) Lymphocytes (%) (Auto) 28% (24-48) Monocytes (%) (Auto) 11% (0-9) Eosinophils (%) (Auto) 5% (0-3) Basophils (%) (Auto) 1% (0-3) Neutrophils # (Auto) 2.8x10^3uL (1.8-7.7) Lymphocytes # (Auto) 1.4x10^3/uL (1.0-4.8) Monocytes # (Auto) 0.6x10^3/uL (0.0-1.1) Eosinophils # (Auto) 0.2x10^3/uL (0.0-0.7) Basophils # (Auto) 0.1x10^3/uL (0.0-0.2) Sodium Level 145mmol/L (136-145) Potassium Level 3.6mmol/L (3.5-5.1) Chloride Level 107mmol/L (98-107) Carbon Dioxide Level 28mmol/L (21-32) Anion Gap 10 (6-14) Blood Urea Nitrogen 33mg/dL (7-20) Creatinine 0.7mg/dL (0.6-1.0) Estimated GFR (Cockcroft-Gault) 102.9 Glucose Level 143mg/dL (70-99) Calcium Level 9.2mg/dL (8.5-10.1) Test 08/13/16 00:14 08/13/16 05:16 08/13/16 05:20 08/13/16 12:14 Glucose (Fingerstick) 153mg/dL (70-99) 129mg/dL (70-99) 146mg/dL (70-99) White Blood Count 5.6x10^3/uL (4.0-11.0) Red Blood Count 3.07x10^6/uL (3.50-5.40) Hemoglobin 8.4g/dL (12.0-15.5) Hematocrit 25.6% (36.0-47.0) Mean Corpuscular Volume 84fL (79-100) Mean Corpuscular Hemoglobin 27pg (25-35) Mean Corpuscular Hemoglobin Concent 33g/dL (31-37) Red Cell Distribution Width 25.6% (11.5-14.5) Platelet Count 218x10^3/uL (140-400) Neutrophils (%) (Auto) 54% (31-73) Lymphocytes (%) (Auto) 25% (24-48) Monocytes (%) (Auto) 13% (0-9) Eosinophils (%) (Auto) 4% (0-3) Basophils (%) (Auto) 3% (0-3) Neutrophils # (Auto) 3.0x10^3uL (1.8-7.7) Lymphocytes # (Auto) 1.4x10^3/uL (1.0-4.8) Monocytes # (Auto) 0.7x10^3/uL (0.0-1.1) Eosinophils # (Auto) 0.2x10^3/uL (0.0-0.7) Basophils # (Auto) 0.2x10^3/uL (0.0-0.2) Sodium Level 135mmol/L (136-145) Potassium Level 3.3mmol/L (3.5-5.1) Chloride Level 103mmol/L (98-107) Carbon Dioxide Level 23mmol/L (21-32) Anion Gap 9 (6-14) Blood Urea Nitrogen 29mg/dL (7-20) Creatinine 0.6mg/dL (0.6-1.0) Estimated GFR (Cockcroft-Gault) 123.0 Glucose Level 132mg/dL (70-99) Calcium Level 8.9mg/dL (8.5-10.1) Phosphorus Level 2.1mg/dL (2.6-4.7) Magnesium Level 1.6mg/dL (1.8-2.4) Laboratory Tests Test 08/12/16 19:15 08/13/16 00:14 08/13/16 05:16 08/13/16 05:20 Glucose (Fingerstick) 109mg/dL (70-99) 153mg/dL (70-99) 129mg/dL (70-99) White Blood Count 5.6x10^3/uL (4.0-11.0) Red Blood Count 3.07x10^6/uL (3.50-5.40) Hemoglobin 8.4g/dL (12.0-15.5) Hematocrit 25.6% (36.0-47.0) Mean Corpuscular Volume 84fL (79-100) Mean Corpuscular Hemoglobin 27pg (25-35) Mean Corpuscular Hemoglobin Concent 33g/dL (31-37) Red Cell Distribution Width 25.6% (11.5-14.5) Platelet Count 218x10^3/uL (140-400) Neutrophils (%) (Auto) 54% (31-73) Lymphocytes (%) (Auto) 25% (24-48) Monocytes (%) (Auto) 13% (0-9) Eosinophils (%) (Auto) 4% (0-3) Basophils (%) (Auto) 3% (0-3) Neutrophils # (Auto) 3.0x10^3uL (1.8-7.7) Lymphocytes # (Auto) 1.4x10^3/uL (1.0-4.8) Monocytes # (Auto) 0.7x10^3/uL (0.0-1.1) Eosinophils # (Auto) 0.2x10^3/uL (0.0-0.7) Basophils # (Auto) 0.2x10^3/uL (0.0-0.2) Sodium Level 135mmol/L (136-145) Potassium Level 3.3mmol/L (3.5-5.1) Chloride Level 103mmol/L (98-107) Carbon Dioxide Level 23mmol/L (21-32) Anion Gap 9 (6-14) Blood Urea Nitrogen 29mg/dL (7-20) Creatinine 0.6mg/dL (0.6-1.0) Estimated GFR (Cockcroft-Gault) 123.0 Glucose Level 132mg/dL (70-99) Calcium Level 8.9mg/dL (8.5-10.1) Phosphorus Level 2.1mg/dL (2.6-4.7) Magnesium Level 1.6mg/dL (1.8-2.4) Test 08/13/16 12:14 Glucose (Fingerstick) 146mg/dL (70-99) Medications Active Scripts Medications Dose Route/Sig Days Date Category Dilaudid (Hydromorphone Hcl) 4 Mg Tablet 4 Mg PO Q6HRS 06/29/16 Rx Phenazopyridine Hcl 200 Mg Tablet 200 Mg PO PRN TID PRN 06/29/16 Rx FENTANYL 50mcg/hr (Fentanyl) 1 Each Patch.td72 1 Patch TD Q3DAYS 06/29/16 Rx Anaspaz (Hyoscyamine Sulfate) 0.125 Mg Tab.rapdis 0.125 Mg PO Q6HRS PRN 06/29/16 Rx Cefpodoxime Proxetil 200 Mg Tablet 200 Mg PO BID 06/29/16 Rx Sertraline Hcl 50 Mg Tablet 100 Mg PO DAILY 30 05/12/16 Rx Protonix (Pantoprazole Sodium) 40 Mg Tablet.dr 1 Tab PO DAILY 12/27/15 Rx Zinc Oxide 56.7 Gm Oint...g. 1 Sang TP BID 12/18/15 Rx Lidocaine 35.44 Gm Oint...g. 1 Sang TP BID 12/18/15 Rx Ondansetron Odt (Ondansetron) 4 Mg Tab.rapdis 8 Mg PO PRN Q8HRS PRN 07/03/15 Rx Gas-X (Simethicone) 80 Mg Tab.chew 80 Mg PO PRN QID PRN 09/30/14 Rx Lorazepam 0.5 Mg Tablet 0.5 Mg PO PRN BID PRN 11/08/13 Reported Comments CXR 08/07 RESOLVED CHF Impression . 1. Acute respiratory failure, multifactorial. 2. Septic shock. off pressors 3. Bilateral pulmonary infiltrates compatible with pulmonary edema, /doubt pneumonia. resolved 4. Fungemia./Urine MDR Enterobacter and Amp res Enterococcus 07/15 5. Chronic enterocutaneous fistula. 6. Metabolic toxic encephalopathy. 7. Acute renal failure. 8. Stbkxijy-sw-hlimkw protein malnutrition, present upon admission. 9. Metabolic acidosis. resolved 10.Thrombocytopenia, sepsis induced Plan . Spoke with Dr Cisneros yesterday ok to transfer extubated no resp distress use prn BIPAP today PT/OT abx per ID off solucortef, bronchodilator monitor Plt few ice chips ok WENDI GRAY MD Aug 13, 2016 15:18
--- NOTE | 2016-08-13 23:34 | DS ---
DATE OF DISCHARGE: 08/13/2016 CONSULTANTS: Include Dr. Garcia Suggs, Dr. Muniz, Dr. Joiner, Dr. Walsh, Dr. Delcid, Dr. Jasmine, Dr. Adorno, Dr. Soliman, Dr. Roderick Ovalle. FINAL DIAGNOSES: 1. Judi glabrata fungemia with severe sepsis and septic shock. 2. Acute hypoxic respiratory failure. 3. Metabolic encephalopathy. 4. Acute kidney injury secondary to acute tubular necrosis from sepsis. 5. Bilateral lung infiltrates. 6. Disseminated intravascular coagulation. 7. Thrombocytopenia, also due to a platelet antibody and also from disseminated intravascular coagulation and sepsis. 8. PICC associated fungemia with sepsis and septic shock. 9. Enterocutaneous fistula. 10. Enterovesical fistula. 11. Hypokalemia. 12. Hypomagnesemia. 13. Anemia of chronic disease. 14. Moderately severe protein-calorie malnutrition. 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 PROCEDURE: Hemodialysis. She was intubated and placed on a ventilator, eventually extubated. She also had a removal of her PICC line and a replacement of a PICC line. ____ of triple lumen catheter, which was also used for dialysis at one time. HOSPITAL COURSE: The patient is a 61-year-old -[place] female with a history of enterocutaneous fistula and enterovesical fistula, maintained on home TPN with a PICC line with anemia of chronic disease, admitted to [facility] through the Emergency Room on 07/15/2016 with the onset of fever. She had some dysuria. She was treated for a urinary tract infection, which ____ diagnosis, seen in consultation by Dr. Garcia Suggs and Dr. Muniz. CAT scan of the abdomen and pelvis did not show any acute abnormality. During her stay, she developed a high fever and blood cultures were positive for Judi glabrata. She had to be transferred to the intensive care unit with severe sepsis with septic shock. She had acute hypoxic respiratory failure, had to be intubated, placed on the ventilator and seen by Dr. Joiner in consultation. She developed acute kidney injury secondary to acute tubular necrosis secondary to sepsis, seen in consultation by Dr. Delcid. Also seen by Dr. Alyce Suggs. She also had disseminated intravascular coagulation and a platelet antibody manifested by thrombocytopenia and anemia. She did receive cryoprecipitate and fresh frozen plasma. She had a little bit of oozing of blood from her enterocutaneous fistula and also from her PICC line, which eventually resolved. The patient had bilateral lung infiltrates also. She received IV hydrocortisone, which eventually was discontinued and she continued to improve. The bilateral lung infiltrates resolved and her renal function improved and acute kidney injury resolved and her hemodialysis was discontinued, she was extubated. She was on pressors at one time, they were weaned off. She was treated with various antibiotics and currently she was receiving IV micafungin as the other antibiotics were weaned off. She will be dismissed to an LT[facility] later today on Tylenol 650 mg per rectum every 4 hours p.r.n., Aranesp 60 mcg every week, insulin sliding scale every 6 hours, lorazepam 0.5 mg IV every 4 hours p.r.n., micafungin 100 mg IV q. 24 hours, Zofran 8 mg IV every 8 hours p.r.n., Protonix 40 mg IV q. 24 hours. The TPN will be at 80 mL an hour. She also will have zinc oxide and lidocaine placed on her excoriated abdomen from her enterocutaneous fistula b.i.d. She will be having SCDs for deep vein thrombosis prophylaxis, to receive physical, occupational, speech therapy. Speech therapy will do a swallow evaluation. RODERICK LUTZ MD DR: NABILA/jd JOB#: [id number] / [id number]
== END 2016-08-13 15:30 | disposition short-term general hospital (02) | DRG 870 ==
LOC: ER 20:42 → 6 SOUTH 23:58 → 1 WEST ICU 07-27 18:00
PROVIDERS: ADMIT Internal Medicine; ATTEND Internal Medicine
PROC: 30233M1 Transfusion of Nonautologous Plasma Cryoprecipitate into Peripheral Vein, Percutaneous Approach (ICD-10-PCS; principal; 2016-07-23)
PROC: 0BH17EZ Insertion of Endotracheal Airway into Trachea, Via Natural or Artificial Opening (ICD-10-PCS; 2016-07-30)
PROC: 5A1955Z Respiratory Ventilation, Greater than 96 Consecutive Hours (ICD-10-PCS; 2016-07-30)
PROC: B5181ZA Fluoroscopy of Superior Vena Cava using Low Osmolar Contrast, Guidance (ICD-10-PCS; 2016-07-31)
PROC: 02PAX3Z Removal of Infusion Device from Heart, External Approach (ICD-10-PCS; 2016-07-31)
PROC: 02HV33Z Insertion of Infusion Device into Superior Vena Cava, Percutaneous Approach (ICD-10-PCS; 2016-07-31)
PROC: 5A1D60Z (ICD-10-PCS; 2016-07-31)
PROC: 30233N1 Transfusion of Nonautologous Red Blood Cells into Peripheral Vein, Percutaneous Approach (ICD-10-PCS; 2016-08-05)
DX: A41.81 Sepsis due to Enterococcus (principal); E43 Unspecified severe protein-calorie malnutrition; D65 Disseminated intravascular coagulation [defibrination syndrome]; G92 Toxic encephalopathy; J96.01 Acute respiratory failure with hypoxia; J18.9 Pneumonia, unspecified organism; N17.0 Acute kidney failure with tubular necrosis; R65.21 Severe sepsis with septic shock; E87.0 Hyperosmolality and hypernatremia; J80 Acute respiratory distress syndrome; K57.92 Diverticulitis of intestine, part unspecified, without perforation or abscess without bleeding; K63.2 Fistula of intestine; N39.0 Urinary tract infection, site not specified; N32.1 Vesicointestinal fistula; G72.81 Critical illness myopathy; J81.1 Chronic pulmonary edema; I12.9 Hypertensive chronic kidney disease with stage 1 through stage 4 chronic kidney disease, or unspecified chronic kidney disease; B37.7 Candidal sepsis; B96.89 Other specified bacterial agents as the cause of diseases classified elsewhere; C53.9 Malignant neoplasm of cervix uteri, unspecified; E87.6 Hypokalemia; E83.42 Hypomagnesemia; E03.9 Hypothyroidism, unspecified; F41.9 Anxiety disorder, unspecified; D69.59 Other secondary thrombocytopenia; D63.8 Anemia in other chronic diseases classified elsewhere; I25.10 Atherosclerotic heart disease of native coronary artery without angina pectoris; N18.9 Chronic kidney disease, unspecified; N32.89 Other specified disorders of bladder; R79.1 Abnormal coagulation profile; T50.905A Adverse effect of unspecified drugs, medicaments and biological substances, initial encounter; Z16.24 Resistance to multiple antibiotics; Z82.49 Family history of ischemic heart disease and other diseases of the circulatory system; Z83.3 Family history of diabetes mellitus; Z85.41 Personal history of malignant neoplasm of cervix uteri; Z86.2 Personal history of diseases of the blood and blood-forming organs and certain disorders involving the immune mechanism; Z86.718 Personal history of other venous thrombosis and embolism; Z82.5 Family history of asthma and other chronic lower respiratory diseases; Z87.440 Personal history of urinary (tract) infections; Z87.891 Personal history of nicotine dependence; Z90.49 Acquired absence of other specified parts of digestive tract; Z90.710 Acquired absence of both cervix and uterus; Z99.2 Dependence on renal dialysis; Z88.5 Allergy status to narcotic agent; Z88.8 Allergy status to other drugs, medicaments and biological substances; Z88.1 Allergy status to other antibiotic agents; Z91.041 Radiographic dye allergy status; Z68.20 Body mass index [BMI] 20.0-20.9, adult
CPT/HCPCS: 36415; 36556; 36580; 36589; 36600; 70450; 71010; 74000; 74176; 76700; 76770; 76937; 77001; 80048; 80053; 80069; 80076; 80170; 80202; 81001; 82040; 82150; 82550; 82805; 82947; 83010; 83605; 83615; 83690; 83735; 84100; 84132; 84145; 84439; 84443; 84478; 85007; 85018; 85027; 85045; 85384; 85610; 85730; 86022; 86706; 86850; 86900; 86901; 86920; 86927; 87040; 87070; 87086; 87186; 87205; 87324; 87340; 87341; 87641; 87804; 93306; 93970; 94002; 94003; 94640; 94660; 94760; 96361; 96365; 96375; 96376; C1751; C1769; C1773; C1892; C1894; C9113; J0330; J0610; J0878; J0881; J1170; J1265; J1450; J1580; J1720; J1815; J1885; J1940; J1956; J2020; J2060; J2185; J2248; J2250; J2405; J2543; J2704; J2997; J3010; J3243; J3475; J3480; J3490; J7030; J7040; J7050; J7060; J7620; P9012; P9016; P9017; P9046; Q0163; 97110; 97530; 97535; 99291-25

== ENCOUNTER 2016-09-10 08:06 | Inpatient (IN) | payer MEDICARE ==
[~2016-09-10] VITALS: Ht 162.6 cm; Wt 60.8 kg
[~2016-09-10 08:06] MED LIST changes: +ACET650S11 RC; +B CO1CAP11 PO; +DARB60DI SQ; +HYDR2DIS IJ; +MELA1TAB13 PO; +ONDA4DIS4 IJ
[2016-09-10] MEDS ORDERED: ONDANSETRON PF 4 MG/2 ML VIAL. ONE (08:18)
[2016-09-10] MEDS ORDERED: HYDROMORPHONE 2 MG/ML VIAL. ONE (08:18)
[2016-09-10] MEDS ORDERED: ONDANSETRON PF 4 MG/2 ML VIAL. IV ONE ×2 (08:30)
[2016-09-10] MEDS ORDERED: IV NORMAL SALINE 1000ML BAG 1,000 ML IV ONE (08:30)
[2016-09-10] MEDS: HYDROMORPHONE 2 MG/ML VIAL. IV/SQ PRN ×3 (08:32→10:40)
[2016-09-10 08:46] LABS: BILIRUBIN,URINE NEGATIVE (NEG); GLUCOSE,URINE NEGATIVE (NEG); NITRITE,URINE NEGATIVE (NEG); PH,URINE 7.5; PROTEIN,URINE NEGATIVE (NEG-TRACE)
[2016-09-10 08:48] LABS: BASO # 0.1 x10^3/uL (0.0-0.2); BASO % 2 % (0-3); EOS % 1 % (0-3); HEMATOCRIT 35.1 % (36.0-47.0); HEMOGLOBIN 11.3 g/dL (12.0-15.5); LYMPH # 0.9 x10^3/uL (1.0-4.8); LYMPH % 27 % (24-48); MEAN CORPUSCULAR HEMOGLOBIN 26 pg (25-35); MEAN CORPUSCULAR HGB CONC 32 g/dL (31-37); MEAN CORPUSCULAR VOLUME 82 fL (79-100); MONO % 10 % (0-9); NEUT % 60 % (31-73); PLATELET COUNT 401 x10^3/uL (140-400); RED BLOOD COUNT 4.28 x10^6/uL (3.50-5.40); RED CELL DISTRIBUTION WIDTH 21.4 % (11.5-14.5); WHITE BLOOD COUNT 3.5 x10^3/uL (4.0-11.0)
--- NOTE | 2016-09-10 08:51 | PHYS DOC ---
Past Medical History Past Medical History: Anxiety, Cancer, Diverticulitis, Hypertension, UTI, Other Additional Past Medical Histor: abd pain,septicemia, Vesicoenteric fistula, cervical CA; blood clot in [place] Past Surgical History: Hysterectomy, Other Additional Past Surgical Histo: bowel resection, ab fistula Alcohol Use: None Drug Use: None Adult General Chief Complaint Chief Complaint: ABDOMINAL PAIN HPI HPI Patient is a 61 year old female who presents with abdominal pain and vomiting. Patient has complicated past medical history including enterocutaneous fistula and enterovesical fistula with recurrent sepsis currently on TPN via PICC line. [facility], discharged yesterday. States she has had severe chronic pain greatest in the periumbilical region which is worse today. Reports onset of vomiting this morning with numerous episodes of emesis, unable to tolerate oral intake. States she may have seen blood in her emesis. Denies fevers or chills, diarrhea or constipation , hematochezia or melena, dysuria or hematuria. PCP is Dr. Cisneros. Has also been seen by infectious disease in the past. Review of Systems Review of Systems Constitutional: Denies fever or chills Eyes: Denies change in visual acuity HENT: Denies nasal congestion or sore throat Respiratory: Denies cough or shortness of breath Cardiovascular: Denies chest pain or edema GI: Reports abdominal pain, nausea, vomiting, denies bloody stools or diarrhea : Denies dysuria or hematuria Musculoskeletal: Denies back pain or joint pain Integument: Denies rash or skin lesions Neurologic: Denies headache, focal weakness or sensory changes Current Medications Current Medications Current Medications Medications (Trade) Dose Ordered Sig/Alex Start Time Stop Time Status Last Admin Dose Admin Dextrose/Sodium Chloride (Iv D5% - NS) 1,000 ml @ 80 mls/hr 1X ONCE 09/10/16 10:30 09/10/16 22:59 UNV Hydromorphone HCl (Dilaudid) 1 mg PRN Q15MIN PRN 09/10/16 08:30 09/11/16 08:29 09/10/16 08:36 1 MG Hydromorphone HCl 1 mg 1 mg PRN Q4HRS PRN 09/10/16 10:30 UNV Hydromorphone HCl 2 mg 2 mg STK-MED ONCE 09/10/16 08:18 09/10/16 08:19 DC Info 1 each PRN DAILY PRN 09/10/16 10:30 Ondansetron HCl (Zofran) 4 mg Q6HRS 09/10/16 12:00 09/11/16 11:59 UNV Sodium Chloride (Iv Sodium Chloride 0.9% 1000ml Bag) 1,000 ml @ 1,000 mls/hr 1X ONCE 09/10/16 08:30 09/10/16 09:29 DC 09/10/16 08:33 1,000 MLS/HR Allergies Allergies Allergies Coded Allergies Type Severity Reaction Last Updated Verified Iodinated Contrast Media - Oral and Allergy Severe Anaphylaxis 12/05/15 Yes vancomycin Allergy Severe Swelling 12/05/15 Yes adhesive tape Allergy Intermediate Rash 12/05/15 Yes silver Allergy Intermediate Rash, Tegaderm film, can have on abd but no where else 12/05/15 Yes codeine Adverse Reaction Severe Nausea and Vomiting 12/11/15 Yes Physical Exam Physical Exam Constitutional: Well developed, well nourished, appears uncomfortable and weak. HENT: Normocephalic, atraumatic, bilateral external ears normal, oropharynx dry , nose normal. Eyes: PERRLA, EOMI, conjunctiva normal, no discharge. Neck: supple, no stridor. Cardiovascular: RRR, no murmurs, no edema. Lungs & Thorax: LCTAB, no wheezing, no respiratory distress. Abdomen: Decreased bowel sounds, soft, mild generalized tenderness without focal right upper quadrant or right lower quadrant tenderness, no rebound or guarding, no masses, nondistended. Bag overlying fistula draining yellow/green fluid. Skin: Warm, dry, no erythema, no rash. Back: No tenderness, no CVA tenderness Extremities: No tenderness, no edema. Neurologic: Alert and oriented X 3, no focal deficits noted. Psychologic: Affect normal, judgement normal, mood normal. Current Patient Data Vital Signs Vital Signs Date Time Temp Pulse Resp B/P Pulse Ox O2 Delivery O2 Flow Rate FiO2 09/10/16 08:06 97.9 88 20 176/80 100 Room Air 97.9 Lab Values Laboratory Tests Test 09/10/16 08:15 White Blood Count 3.5x10^3/uL (4.0-11.0) L Red Blood Count 4.28x10^6/uL (3.50-5.40) Hemoglobin 11.3g/dL (12.0-15.5) #L Hematocrit 35.1% (36.0-47.0) #L Mean Corpuscular Volume 82fL (79-100) Mean Corpuscular Hemoglobin 26pg (25-35) Mean Corpuscular Hemoglobin Concent 32g/dL (31-37) Red Cell Distribution Width 21.4% (11.5-14.5) H Platelet Count 401x10^3/uL (140-400) H Neutrophils (%) (Auto) 60% (31-73) Lymphocytes (%) (Auto) 27% (24-48) Monocytes (%) (Auto) 10% (0-9) H Eosinophils (%) (Auto) 1% (0-3) Basophils (%) (Auto) 2% (0-3) Neutrophils # (Auto) 2.1x10^3uL (1.8-7.7) Lymphocytes # (Auto) 0.9x10^3/uL (1.0-4.8) L Monocytes # (Auto) 0.3x10^3/uL (0.0-1.1) Eosinophils # (Auto) 0.0x10^3/uL (0.0-0.7) Basophils # (Auto) 0.1x10^3/uL (0.0-0.2) Platelet Estimate Pending Urine Collection Type Unknown Urine Color Yellow Urine Clarity Clear Urine pH 7.5 Urine Specific [place] 1.015 Urine Protein Negativemg/dL (NEG-TRACE) Urine Glucose (UA) Negativemg/dL (NEG) Urine Ketones (Stick) Negativemg/dL (NEG) Urine Blood Negative (NEG) Urine Nitrite Negative (NEG) Urine Bilirubin Negative (NEG) Urine Urobilinogen Dipstick 1.0mg/dL (0.2 mg/dL) Urine Leukocyte Esterase Moderate (NEG) Urine RBC 1-2/HPF (0-2) Urine WBC 11-20/HPF (0-4) Urine Squamous Epithelial Cells Mod/LPF Urine Bacteria Many/HPF (0-FEW) Sodium Level 144mmol/L (136-145) Potassium Level 3.6mmol/L (3.5-5.1) Chloride Level 107mmol/L (98-107) Carbon Dioxide Level 27mmol/L (21-32) Anion Gap 10 (6-14) Blood Urea Nitrogen 18mg/dL (7-20) Creatinine 0.5mg/dL (0.6-1.0) L Estimated GFR (Cockcroft-Gault) 151.8 BUN/Creatinine Ratio 36 (6-20) H Glucose Level 95mg/dL (70-99) Lactic Acid Level 1.4mmol/L (0.4-2.0) Calcium Level 9.6mg/dL (8.5-10.1) Total Bilirubin 2.4mg/dL (0.2-1.0) H Aspartate Amino Transferase (AST) 152U/L (15-37) H Alanine Aminotransferase (ALT) 125U/L (14-59) H Alkaline Phosphatase 1063U/L (46-116) H Troponin I Quantitative < 0.017ng/mL (0.000-0.055) Total Protein 8.6g/dL (6.4-8.2) H Albumin 2.9g/dL (3.4-5.0) L Albumin/Globulin Ratio 0.5 (1.0-1.7) L Lipase 221U/L (73-393) Laboratory Tests 09/10/16 08:15 Laboratory Tests 09/10/16 08:15 EKG EKG Interpreted by me: Normal sinus rhythm rate 80, no acute ST or T wave changes, normal intervals, no ectopy. [] Radiology/Procedures Radiology/Procedures PROCEDURE: ACUTE ABDOMEN SERIES EXAM: Abdomen acute complete. HISTORY: Pain. COMPARISON: 12/22/2015. FINDINGS: A frontal view of the chest and frontal upright and supine views of the abdomen are obtained. There is no infiltrate, effusion or pneumothorax. The heart is normal in size. There is a port catheter with the tip in the superior vena cava. There are multiple rectoperineal clips and there are cholecystectomy clips. There are bowel anastomoses. There is no transition point to suggest obstruction. There is no intraperitoneal free air. There are screws within the proximal femurs. IMPRESSION: 1. No acute pulmonary finding. 2. Nonobstructive bowel gas pattern. DICTATED and SIGNED BY: ZEFERINO DHILLON MD DATE: 09/10/16 0854 [] Course & Med Decision Making Course & Med Decision Making Pertinent Labs and Imaging studies reviewed. (See chart for details) Patient presents with abdominal pain and vomiting. Vitals stable, no focal abdominal tenderness. Administered IV fluids, Zofran, pain medication. She was resting more comfortably at time of reassessment. Acute abdominal series shows no acute abnormality. Labs no significant change. Patient does not feel well enough to go home. Discussed with Dr. Cisneros who agrees to admit to inpatient status. He requests GI consult to Dr. Ovalle, pharmacy to resume home TPN, for now give D5 normal saline at 80 mL per hour, scheduled Zofran 4 mg every 6 hours. These orders have been placed on the chart. He is aware of results UA, bacteria chronically present secondary to enterovesical fistula, no antibiotics indicated at this time. Patient being admitted in stable condition. Dragon Disclaimer Dragon Disclaimer This electronic medical record was generated, in whole or in part, using a voice recognition dictation system. Departure Departure Impression: Primary Impression: Abdominal pain Additional Impressions: Nausea and vomiting Enterocutaneous fistula Generalized weakness Accelerated hypertension Disposition: ADMITTED INPATIENT Condition: STABLE Referrals: BENITA CISNEROS MD (PCP) Problem Qualifiers BENTLEY SOMMERS MD Sep 10, 2016 08:51
[2016-09-10 08:54] LABS: CALCIUM 9.6 mg/dL (8.5-10.1); CREATININE 0.5 mg/dL (0.6-1.0); GFR 151.8; POTASSIUM 3.6 mmol/L (3.5-5.1)
--- NOTE | 2016-09-10 09:00 | RAD ---
EXAM: Abdomen acute complete. HISTORY: Pain. COMPARISON: 12/22/2015. FINDINGS: A frontal view of the chest and frontal upright and supine views of the abdomen are obtained. There is no infiltrate, effusion or pneumothorax. The heart is normal in size. There is a port catheter with the tip in the superior vena cava. There are multiple rectoperineal clips and there are cholecystectomy clips. There are bowel anastomoses. There is no transition point to suggest obstruction. There is no intraperitoneal free air. There are screws within the proximal femurs. IMPRESSION: 1. No acute pulmonary finding. 2. Nonobstructive bowel gas pattern.
[2016-09-10 09:11] LABS: ALBUMIN 2.9 g/dL (3.4-5.0); ALBUMIN/GLOBULIN RATIO 0.5 (1.0-1.7); TOTAL BILIRUBIN 2.4 mg/dL (0.2-1.0); TOTAL PROTEIN 8.6 g/dL (6.4-8.2)
[2016-09-10 09:15] LABS: BACTERIA,URINE MANY /HPF (0-FEW); SQUAMOUS EPITHELIAL CELL,UR MOD /LPF
--- NOTE | 2016-09-10 09:27 | EKG ---
[facility] [address] [place] [address] Test Date: 2016-09-10 Test Time: 09:02:33 Pat Name: HERMAN MONCADA Department: Room: Gender: F [employer]: : 1955 Requested By: BENTLEY SOMMERS Order Number: [id number] Reading MD: Karma Barrientos Measurements Intervals [place] Rate: 80 P: 49 TX: 166 QRS: 39 QRSD: 74 T: 51 QT: 382 QTc: 444 Interpretive Statements SINUS RHYTHM LEFT ATRIAL ABNORMALITY QRS(T) CONTOUR ABNORMALITY CONSIDER ANTEROLATERAL MYOCARDIAL DAMAGE RI6.01 Compared to ECG 06/24/2016 14:59:29 Atrial abnormality now present Electronically Signed On 09-13-2016 18:16:37 CDT by Karma Barrientos
[2016-09-10] MEDS ORDERED: HYDROMORPHONE 2 MG/ML VIAL. IV PRN (10:30)
[2016-09-10] MEDS ORDERED: IV DEXTROSE 5% - 0.9 % NACL 1,000 ML IV ONE (10:30)
[2016-09-10 11:23] LABS: MAGNESIUM 1.8 mg/dL (1.8-2.4); PHOSPHORUS 3.7 mg/dL (2.6-4.7)
[2016-09-10] MEDS ORDERED: ACETAMINOPHEN 325 MG TABLET. PO PRN (12:00)
[2016-09-10] MEDS: ONDANSETRON PF 4 MG/2 ML VIAL. IV SCH ×4 (12:00→20:41)
--- NOTE | 2016-09-10 12:17 | PDOC ---
Provider Note Provider Note history and physical dictated # [id number] BENITA LUTZ MD Sep 10, 2016 12:17
[2016-09-10] MEDS ORDERED: ZOLPIDEM 5 MG TABLET. PO PRN (12:30)
[2016-09-10] MEDS ORDERED: POTASSIUM CL 20MEQ D5-0.45NACL 1,000 ML IV SCH (12:30)
[2016-09-10] MEDS ORDERED: LORAZEPAM 0.5 MG TABLET. PO PRN (12:30)
[2016-09-10] MEDS: hydrALAZINE 20 MG/ML VIAL. IVP PRN (12:34)
--- NOTE | 2016-09-10 12:34 | ACF ---
Admission Forms Criteria ABDOMINAL PAIN Clinical Indications for Admission to Inpatient Care (Place 'X' for any and all applicable criteria): Admission is indicated for ANY ONE of the following(1)(2)(3)(4)(5): [X]I. Inpatient admission required rather than observation care (Also use Abdominal Pain: Observation Care, as appropriate) because of ANY ONE of the following: [X]a) Severe pain requiring acute inpatient management [ ]b) Identification of etiology/finding that requires inpatient care (eg, aortic dissection, free air) [ ]c) Absent bowel sounds with complete ileus(6) [ ]d) Suspected toxic megacolon [ ]e) Severe electrolyte abnormalities requiring inpatient care [ ]f) High fever or infection requiring inpatient admission as indicated by ANY ONE of following(7)(8): [ ] i) Appropriate outpatient or observational care antimicrobial treatment unavailable, not effective, or not feasible [ ] ii) Documented bacteremia [ ] iii) Temperature > 104.9 degrees F (oral) [ ] iv) T >103.1 F (oral) or < 96.8 F(rectal) that does not respond to all emergency treatment measures [ ]g) Signs of intestinal obstruction [B] [ ]h) Hemodynamic instability [ ]i) IV fluid to replace significant ongoing losses (greater than 3 L/m2 per day) (12)(13) [ ]j) Percutaneous or open drainage (eg, abscess, biliary tract ) procedures [ ]k) Parenteral nutrition regimen that must be implemented on inpatient basis [X]l) Other condition,treatment or monitoring requiring inpatient admission. [ ]II. Peritoneal signs present [ ]III. Surgery needed that cannot be performed on an ambulatory basis. [ ]IV. Evaluation requires patient to not eat or drink for extended period ( eg, more than 24 hours). [ ]V. Contraindications and/or Inappropriate clinical situations for Observational Care in patients with abdominal pain, when ANY ONE of the following is required: [ ]a) Thorough evaluation is required to prevent catastrophic events due to delays in diagnosing (e.g.Mesenteric ischemia) 1,3 [ ]b) Patient with severe pathology or with chronic symptoms unlikely to improve in the ED stay (3) [ ]. General contraindications and/or Inappropriate clinical situations for Observational Care in patients with abdominal pain, when ANY ONE of the following is required: [ ]a) Prediction of prolongation of LOS based on ANY ONE of the following may be considered as a contraindication for observational care 2, 3, 4, 5, 6, 7, 8, 9, 10, 11 [ ]i) Age > 65 yrs. [ ]ii) Patient arriving by ambulance [ ]iii) Patient with high acuity [ ]iv) Patient requiring vital sign monitoring [ ]v) Patient on IV medication [ ]b) Systolic blood pressures 180mmHg 3,12 [ ]c) Patient with altered mental status including delirium and other alteration of consciousness, (3) [ ]d) Patient whose discharge disposition will be to a residential home or rehabilitation home should not be managed in Emergency Department Observation Unit. CMS rule requires 3 days hospital stay before such placement.3,13 [ ]e) Patient with failure to thrive due to broad array of etiologies 3,16,17 [ ]f) Inability to ambulate 3,14 Extended stay beyond goal length of stay may be needed for(2)(3): [ ]a) Persistent abdominal pain with suspected intra-abdominal process [ ]b) Diagnosed condition requiring continued stay (e.g., pancreatitis, complicated diverticulitis) [ ]c) Surgery (e.g., colectomy) The original [employer] [facility] content created by [facility] has been revised. The portions of the content which have been revised are identified through the use of italic text or in bold, and [facility] has neither reviewed nor approved the modified material.All other unmodified content is copyright [facility]. Please see references footnoted in the original [employer] [facility] edition 2016 Admission Criteria Met?: Yes ANYI LAI Sep 10, 2016 12:34
[2016-09-10 13:00] VITALS: BP 170/92
[2016-09-10] MEDS ORDERED: PANTOPRAZOLE IV PUSH 40 MG VIAL. IVP SCH (13:00)
[2016-09-10] MEDS: TPN PER PHARMACY MC PRN (13:25)
[2016-09-10] MEDS: HYDROMORPHONE 2 MG/ML VIAL. IV PRN ×3 (13:37→21:46)
[2016-09-10 14:01] LABS: ANISOCYTOSIS MOD; PLT ESTIMATE ADEQUATE (ADEQUATE)
[2016-09-10 14:02] LABS: STOMATOCYTES OCC
[2016-09-10] MEDS: AMLODIPINE BESYLATE 5 MG TABLET. PO SCH (14:05)
--- NOTE | 2016-09-10 14:35 | PDOC2 ---
GI CONSULT Reason For Consult: Abd pain, vomiting, elevated LFTs HPI: HPI: 61 y/o female known to GI/Dr. Ovalle, previously for n/v and abd pain. On TPN. H/o complicated diverticular disease w/ multiple enterocutaneous fistulas , has had numerous surgeries for this (here, [facility], [place]). Additional h/o radium implants for cervical cancer in the past, along w/ SBOs. Previous EGD showed gastritis, and previous colonoscopy w/i 5 years was normal. Was admitted to ICU last month w/ resp failure and sepsis, at that time had elevated bilirubin ( >5) w/o h/o liver disease. CT and abd US were unrevealing (s/p cholecystectomy) . On this occasion was discharged from [facility] yesterday, was home for ~10 hours, and began to have diffuse abdominal pain w/ vomiting. Currently feeling much better w/ pain meds. Labs: bili 2.4, AST 152, ALT 125, Alk Phos 1063. MRCP has been ordered. Note she has significant anxiety re: MRIs. PMH: PMH: HTN, cervical cancer, UE DVT, anxiety, sepsis, CKD, hypothyroidism, appendectom , cholecystectomy, hysterectomy, bilateral hip pinning, multiple laparotomies FH: Family History: No pertinent hx Social History: Smoke: No ALCOHOL: none Drugs: None ROS: GEN: Denies fevers, chills, sweats HEENT: Denies blurred vision, sore throat CV: Denies chest pain RESP: Denies shortness of air, cough GI: Per HPI : Denies hematuria, dysuria ENDO: Denies weight changes NEURO: Denies confusion, dizziness MSK: +weakness SKIN: Denies pruritus VItals: Vitals: Vital Signs Date Time Temp Pulse Resp B/P Pulse Ox O2 Delivery O2 Flow Rate FiO2 09/10/16 14:12 99 Room Air 09/10/16 14:05 83 183/92 09/10/16 13:00 98.5 18 98.5 Labs: Labs: Laboratory Tests Test 09/10/16 08:15 White Blood Count 3.5x10^3/uL (4.0-11.0) Red Blood Count 4.28x10^6/uL (3.50-5.40) Hemoglobin 11.3g/dL (12.0-15.5) Hematocrit 35.1% (36.0-47.0) Mean Corpuscular Volume 82fL (79-100) Mean Corpuscular Hemoglobin 26pg (25-35) Mean Corpuscular Hemoglobin Concent 32g/dL (31-37) Red Cell Distribution Width 21.4% (11.5-14.5) Platelet Count 401x10^3/uL (140-400) Neutrophils (%) (Auto) 60% (31-73) Lymphocytes (%) (Auto) 27% (24-48) Monocytes (%) (Auto) 10% (0-9) Eosinophils (%) (Auto) 1% (0-3) Basophils (%) (Auto) 2% (0-3) Neutrophils # (Auto) 2.1x10^3uL (1.8-7.7) Lymphocytes # (Auto) 0.9x10^3/uL (1.0-4.8) Monocytes # (Auto) 0.3x10^3/uL (0.0-1.1) Eosinophils # (Auto) 0.0x10^3/uL (0.0-0.7) Basophils # (Auto) 0.1x10^3/uL (0.0-0.2) Platelet Estimate Adequate (ADEQUATE) Anisocytosis Mod Stomatocytes Occ Urine Collection Type Unknown Urine Color Yellow Urine Clarity Clear Urine pH 7.5 Urine Specific [place] 1.015 Urine Protein Negativemg/dL (NEG-TRACE) Urine Glucose (UA) Negativemg/dL (NEG) Urine Ketones (Stick) Negativemg/dL (NEG) Urine Blood Negative (NEG) Urine Nitrite Negative (NEG) Urine Bilirubin Negative (NEG) Urine Urobilinogen Dipstick 1.0mg/dL (0.2 mg/dL) Urine Leukocyte Esterase Moderate (NEG) Urine RBC 1-2/HPF (0-2) Urine WBC 11-20/HPF (0-4) Urine Squamous Epithelial Cells Mod/LPF Urine Bacteria Many/HPF (0-FEW) Sodium Level 144mmol/L (136-145) Potassium Level 3.6mmol/L (3.5-5.1) Chloride Level 107mmol/L (98-107) Carbon Dioxide Level 27mmol/L (21-32) Anion Gap 10 (6-14) Blood Urea Nitrogen 18mg/dL (7-20) Creatinine 0.5mg/dL (0.6-1.0) Estimated GFR (Cockcroft-Gault) 151.8 BUN/Creatinine Ratio 36 (6-20) Glucose Level 95mg/dL (70-99) Lactic Acid Level 1.4mmol/L (0.4-2.0) Calcium Level 9.6mg/dL (8.5-10.1) Phosphorus Level 3.7mg/dL (2.6-4.7) Magnesium Level 1.8mg/dL (1.8-2.4) Total Bilirubin 2.4mg/dL (0.2-1.0) Aspartate Amino Transf (AST/SGOT) 152U/L (15-37) Alanine Aminotransferase (ALT/SGPT) 125U/L (14-59) Alkaline Phosphatase 1063U/L (46-116) Troponin I Quantitative < 0.017ng/mL (0.000-0.055) Total Protein 8.6g/dL (6.4-8.2) Albumin 2.9g/dL (3.4-5.0) Albumin/Globulin Ratio 0.5 (1.0-1.7) Lipase 221U/L (73-393) Allergies: Coded Allergies: Iodinated Contrast Media - Oral and (Verified Allergy, Severe, Anaphylaxis , 12/05/15) PT HAS BEEN PREMEDICATED BEFORE WITH NO PROBLEMS, 11-27-. vancomycin (Verified Allergy, Severe, Swelling, 12/05/15) adhesive tape (Verified Allergy, Intermediate, Rash, 12/05/15) silver (Verified Allergy, Intermediate, Rash, Tegaderm film, can have on abd but no where else, 12/05/15) codeine (Verified Adverse Reaction, Severe, Nausea and Vomiting, 12/11/15) Medications: Current Medications Medications (Trade) Dose Ordered Sig/Alex Route PRN Reason Start Time Stop Time Status Last Admin Dose Admin Sodium Chloride (Iv Sodium Chloride 0.9% 1000ml Bag) 1,000 ml @ 1,000 mls/hr 1X ONCE IV 09/10/16 08:30 09/10/16 09:29 DC 09/10/16 08:33 Hydromorphone HCl (Dilaudid) 1 mg PRN Q15MIN PRN IV/SQ PAIN GREATER THAN 08/2109/10/16 08:30 09/11/16 08:29 09/10/16 10:40 Ondansetron HCl (Zofran) 4 mg ONCE ONCE IV 09/10/16 08:30 09/10/16 08:31 DC 09/10/16 08:31 Info 1 each 1 each PRN DAILY PRN MC SEE COMMENTS 09/10/16 10:30 09/10/16 13:25 Dextrose/Sodium Chloride (Iv D5% - NS) 1,000 ml @ 80 mls/hr 1X ONCE IV 09/10/16 10:30 09/10/16 22:59 09/10/16 12:29 Hydralazine HCl (Apresoline) 10 mg PRN Q4HRS PRN IVP ELEVATED BP, SEE COMMENTS 09/10/16 10:45 09/10/16 12:34 Hydromorphone HCl (Dilaudid) 2 mg PRN Q4HRS PRN IV PAIN 09/10/16 12:00 09/10/16 13:37 Pantoprazole Sodium (Protonix Vial) 40 mg DAILYAC IVP 09/10/16 13:00 09/10/16 14:05 Amlodipine Besylate (Norvasc) 5 mg DAILY PO 09/10/16 13:00 09/10/16 14:05 Ondansetron HCl (Zofran) 4 mg Q6HRS IV 09/10/16 12:00 09/10/16 13:51 Imaging: Imaging: Acute Abd Series IMPRESSION: 1. No acute pulmonary finding. 2. Nonobstructive bowel gas pattern. PE: GEN: NAD HEENT: Atraumatic, PERRL LUNGS: CTAB HEART: RRR ABD: +fistulae w/ ostomy bag, leaking some yellowish fluid EXTREMITY: No edema SKIN: No rashes NEURO/PSYCH: A & O 3 A/P: A/P: Abd pain, vomiting, elevated LFTs -previous imaging (CT, US) unrevealing -s/p cholecystectomy H/o diverticular disease w/ fistulas, multiple abd surgeries -on TPN -- MRCP ordered. Other per Dr. Ovalle. MIESHA RICO Sep 10, 2016 14:35
--- NOTE | 2016-09-10 14:57 | HP ---
ADMIT DATE: 09/10/2016 ROOM #: 646 HISTORY OF PRESENT ILLNESS: The patient is a 61-year-old black female who has a history of enterocutaneous fistula and an enterovesical fistula who is maintained on home total parenteral nutrition via PICC line, was dismissed yesterday from [facility] around 6:00 p.m., and then 2-1/2 hours after she was dismissed to home, she started vomiting. She apparently vomited through the night and had some nausea and periumbilical abdominal discomfort and also had some blood in her emesis noted by the patient's daughter. She mentioned that there were some clots also. The patient denies any melena or hematochezia. She was told to go to the [facility] where she was evaluated. She has not been having any fever. She does have elevated liver function tests and had a CAT scan of the abdomen and pelvis. CAT scan of the abdomen was done a couple of days ago while she was at [facility], and the liver was unremarkable. She has a previous cholecystectomy. The patient's elevated liver function tests were thought to be due to cholestasis. Her alkaline phosphatase, however, has been slowly increasing, and it is at the highest today at over 1000. Her transaminase levels are also increasing a little bit over 100. Her total bilirubin is staying stable around 2.4. She is, therefore, admitted for further evaluation of her vomiting and hematemesis and also elevated liver function tests. She denies any fever or chills. She does have some pyuria on her urinalysis, which she usually does due to the enterovesical fistula, and we will only treat that if she has a fever because of the fistula. She will always have bacteriuria. ALLERGIES AND INTOLERANCES: INCLUDE IV IODINE, ADHESIVE TAPE, CODEINE, SILVER, AND IV VANCOMYCIN. MEDICATIONS: Prior to admission include sertraline 50 mg every day, amlodipine 5 mg every day, Zofran 8 mg p.o. q.6 h. p.r.n., Pepcid 20 mg p.o. b.i.d., and she is on TPN at 80 mL an hour at home. She is also on Dilaudid 2 mg p.o. q.6 h. p.r.n. She is on lorazepam 0.5 mg every 6 hours p.r.n. for anxiety. PAST MEDICAL HISTORY: Significant for an enterocutaneous fistula. She has undergone about 5 procedures to repair it, all of which have failed. She has an enterovesical fistula. She was hospitalized on 07/16/2016 at [facility] where she was quite ill with influenza type B and then developed sepsis with shock during that hospital stay and had acute hypoxic respiratory failure and had bilateral lung infiltrates and was intubated and placed on a ventilator. She had acute kidney injury and received some hemodialysis for a while and also had a metabolic encephalopathy, critical illness myopathy, and DIC and thrombocytopenia. The patient improved and was weaned off the ventilator, and acute kidney injury was resolved. She did have some elevated liver function tests at that time, which have been persisting and slowly improving. She was eventually transferred to [facility] where she was weaned off all her antibiotics. She had a Judi glabrata PICC line infection with fungemia and sepsis. Her PICC line was removed and changed recently. She has been off of antifungals and IV antibiotics for a while. She had a critical illness myopathy, which also was improved. Her metabolic encephalopathy was resolved. She has a history of an appendectomy, cholecystectomy, tonsillectomy, hysterectomy, and 5 abdominal fistula repairs, which all failed. She has a history of hypertension, depression, diverticulosis, and sepsis as mentioned. SOCIAL HISTORY: She does not drink alcohol nor does she smoke cigarettes. She is followed by Home Health and receives home TPN via PICC line. She does eat for pleasure. Generally, it has been a good day. FAMILY HISTORY: Noncontributory. REVIEW OF SYSTEMS: GENERAL: No fever, chills, or sweats. CARDIOVASCULAR: No chest pain. PULMONARY: No cough or shortness of breath. GASTROINTESTINAL: She had nausea and vomiting and some blood in the emesis according to the family member. ENDOCRINE: No diabetes mellitus. SKIN: No rashes, but she has got enterocutaneous fistula. The rest of the review of systems is negative except as stated in history of present illness. PHYSICAL EXAMINATION: VITAL SIGNS: Temperature is 97.9 degrees, apical pulse 88, respiratory rate 20, blood pressure 176/80, and oxygen saturation 100% on room air. HEENT: Eyes: Sclerae are slightly icteric. Gaze is conjugate. Mouth: Tongue is midline. NECK: Shows no cervical lymphadenopathy or thyroid enlargement. She has got a PICC line on the right side below the clavicle. HEART: Reveals an S1, S2. There is no S3 or murmur. LUNGS: Clear. ABDOMEN: Soft, bowel sounds are positive, nondistended, and she has got a bag over her ostomy site. EXTREMITIES: Lower extremities are without edema. SKIN: No rashes. NEUROLOGIC: Coherent, has no focal weakness of the arms or legs. LABORATORY DATA: The white count 3.5, hemoglobin 11.3, platelet count 401,000, polys 60, and 27 lymphocytes. Sodium 144, potassium 3.6, chloride 107, total CO2 was 27, BUN 18, creatinine 0.5, total bilirubin increased to 2.4, SGOT of 152, SGPT of 125, and alkaline phosphatase of 1063. Albumin 2.9, lipase was normal at 221. The phosphorus is 3.7, magnesium 1.8. Lactic acid level 1.4, calcium 9.6. Urinalysis showed 11 to 20 white cells and 1 to 2 red blood cells. However, she has an enterovesical fistula, and we usually just culture that if she has a fever, as she always will have bacteriuria due to the enterovesical fistula. EKG showed normal sinus rhythm with no acute change. She had an acute abdominal series, which showed no acute pulmonary finding and nonobstructive bowel gas pattern. She has had her PICC line noted with the tip in the superior vena cava. ASSESSMENT: 1. Recurrent vomiting with some hematemesis noted by the family. 2. Elevated liver function tests. 3. Enterocutaneous fistula. 4. Enterovesical fistula. 5. Hypertension. 6. Depression. PLAN: Plan at this time is to admit her to the hospital. We will start her on some IV Protonix, scheduled IV Zofran, and IV Dilaudid p.r.n. for pain. We will get an MRCP since she just had a recent CAT scan of abdomen a couple of days ago, which was negative. We will consult Dr. Roderick Ovalle for GI. We will continue the amlodipine for hypertension, sertraline for her depression. She will be evaluated for an EGD. Continue with the lorazepam. I spoke with the pharmacist, and we will get the TPN going ____ is available. In the meantime, I will put her on IV fluids at 125 mL an hour and discontinue IV fluids once the TPN is resumed. RODERICK LUTZ MD DR: NABILA/jd JOB#: [id number] / [id number]
[2016-09-10] MEDS ORDERED: FAMO20TA5 PO (15:04)
[2016-09-10] MEDS ORDERED: AMLO5TAB2 PO (15:04)
--- NOTE | 2016-09-10 16:41 | RAD ---
MRCP, 09/10/2016: History: Abnormal liver function studies. Imaging was performed in axial and coronal planes utilizing a variety of imaging sequences including T2 weighted, fat suppressed T2 weighted and opposed phase gradient echo sequences. Heavily T2 weighted MRCP sequences were also performed with and without respiratory gating with 3-D MIP images reconstructed. The gallbladder is surgically absent. The intrahepatic bile ducts are unremarkable. The common hepatic duct measures 9-10 mm compatible with the postcholecystectomy state. The common bile duct in the head of the pancreas measures 5-6 mm. No filling defect is seen to suggest a common duct calculus. There is a mild kink in the mid common bile duct without evidence of high-grade stenosis. The pancreatic duct is unremarkable. No hepatic mass is identified. The pancreas and spleen are unremarkable. IMPRESSION: 1. Status post cholecystectomy. 2. Mild kink in the common bile duct without evidence of high-grade obstruction.
[2016-09-10 19:00] VITALS: BP 135/59
[2016-09-10] MEDS ORDERED: AMINO ACID IV SCH ×9 (22:00)
[2016-09-10] MEDS ORDERED: TOTAL PARENTERAL NUTRITION IV SCH ×9 (22:00)
[2016-09-10] MEDS ORDERED: DEXTROSE 70% IV SCH ×9 (22:00)
[2016-09-10] MEDS ORDERED: [UNRECOGNIZED DRUG - OTHER] IV SCH ×9 (22:00)
[2016-09-10 22:55] VITALS: BP 135/54
[2016-09-11] MEDS: ONDANSETRON PF 4 MG/2 ML VIAL. IV SCH ×6 (00:27→17:11)
[2016-09-11] MEDS: HYDROMORPHONE 2 MG/ML VIAL. IV PRN ×7 (02:07→22:26)
[2016-09-11 03:00] VITALS: BP 137/56
[2016-09-11] MEDS: POTASSIUM CHLORIDE 30 MEQ in IV DEXTROSE 5 %-0.45 % NACL 1,000 ML IV SCH ×2 (05:41→19:24)
[2016-09-11 06:47] LABS: ALBUMIN 2.7 g/dL (3.4-5.0); ALBUMIN/GLOBULIN RATIO 0.5 (1.0-1.7); CALCIUM 9.2 mg/dL (8.5-10.1); CREATININE 0.6 mg/dL (0.6-1.0); MAGNESIUM 1.7 mg/dL (1.8-2.4); PHOSPHORUS 5.1 mg/dL (2.6-4.7); POTASSIUM 3.4 mmol/L (3.5-5.1); TOTAL BILIRUBIN 2.5 mg/dL (0.2-1.0); TOTAL PROTEIN 7.7 g/dL (6.4-8.2)
[2016-09-11 06:51] LABS: BASO # 0.1 x10^3/uL (0.0-0.2); BASO % 3 % (0-3); EOS % 3 % (0-3); HEMATOCRIT 32.1 % (36.0-47.0); HEMOGLOBIN 10.1 g/dL (12.0-15.5); LYMPH # 1.3 x10^3/uL (1.0-4.8); LYMPH % 34 % (24-48); MEAN CORPUSCULAR HEMOGLOBIN 26 pg (25-35); MEAN CORPUSCULAR HGB CONC 32 g/dL (31-37); MEAN CORPUSCULAR VOLUME 83 fL (79-100); MONO % 10 % (0-9); NEUT % 50 % (31-73); PLATELET COUNT 331 x10^3/uL (140-400); RED BLOOD COUNT 3.84 x10^6/uL (3.50-5.40); RED CELL DISTRIBUTION WIDTH 21.2 % (11.5-14.5); WHITE BLOOD COUNT 3.8 x10^3/uL (4.0-11.0)
[2016-09-11 07:00] VITALS: BP 134/62
[2016-09-11 07:34] LABS: INR 1.2 (0.8-1.1); PROTHROMBIN TIME PATIENT 14.2 SEC (11.7-14.0)
[2016-09-11] MEDS ORDERED: POTASSIUM CHLORIDE 20 MEQ TABLET.ER. PO ONE (09:15)
[2016-09-11] MEDS ORDERED: MAGNESIUM SULFATE 2GM 50 ML IV ONE (09:15)
--- NOTE | 2016-09-11 09:23 | PDOC ---
PROGRESS NOTES Subjective Subjective feels better. some nausea but no vomiting or melena. lab reviewed. potassium and magnesium low. MRCP showed kink in mid common bile duct but no high grade obstruction. Objective Objective Vital Signs Date Time Temp Pulse Resp B/P Pulse Ox O2 Delivery O2 Flow Rate FiO2 09/11/16 07:00 97.9 81 18 134/62 98 Room Air 97.9 Intake and Output 09/11/16 07:00 Intake Total 1250 ml Output Total 2250 ml Balance -1000 ml Intake Oral 250 ml IV Total 1000 ml Output Urine Total 2250 ml # Voids 2 Physical Exam Abdomen: Soft, Other (bag for enterocutaneous drainage) Heart: Regular rate, Normal S1, Normal S2 Extremities: No edema General: Alert, Cooperative HEENT: Atraumatic Lungs: Clear to auscultation MUSCULOSKELETAL: No muscular tenderness noted Neck: Supple Neuro: Normal speech Psych/Mental Status: Mental status NL Skin: No rashes Assessment Assessment Problems Medical Problems:ASSESSMENT: 1. Recurrent vomiting with some hematemesis noted by the family. 2. Elevated liver function tests. 3. Enterocutaneous fistula. 4. Enterovesical fistula. 5. Hypertension. 6. Depression. hypokalemia hypomagnesemia common bile duct kink on MRCP without high grade obstruction (1) Abdominal pain Status: Acute (2) Accelerated hypertension Status: Acute (3) Enterocutaneous fistula Status: Acute (4) Generalized weakness Status: Acute (5) Hematemesis Status: Acute (6) Nausea and vomiting Status: Acute Plan Plan of Care start TPN. spoke with pharmacist continue iv protonix and iv zofran replete kcl and iv magnesium today lab tomorrow GI recommendations noted continue prn iv dilaudid Comment Review of Relevant I have reviewed the following items lucila (where applicable) has been applied. Labs Laboratory Tests Test 09/10/16 08:15 09/11/16 06:20 White Blood Count 3.5x10^3/uL (4.0-11.0) 3.8x10^3/uL (4.0-11.0) Red Blood Count 4.28x10^6/uL (3.50-5.40) 3.84x10^6/uL (3.50-5.40) Hemoglobin 11.3g/dL (12.0-15.5) 10.1g/dL (12.0-15.5) Hematocrit 35.1% (36.0-47.0) 32.1% (36.0-47.0) Mean Corpuscular Volume 82fL (79-100) 83fL (79-100) Mean Corpuscular Hemoglobin 26pg (25-35) 26pg (25-35) Mean Corpuscular Hemoglobin Concent 32g/dL (31-37) 32g/dL (31-37) Red Cell Distribution Width 21.4% (11.5-14.5) 21.2% (11.5-14.5) Platelet Count 401x10^3/uL (140-400) 331x10^3/uL (140-400) Neutrophils (%) (Auto) 60% (31-73) 50% (31-73) Lymphocytes (%) (Auto) 27% (24-48) 34% (24-48) Monocytes (%) (Auto) 10% (0-9) 10% (0-9) Eosinophils (%) (Auto) 1% (0-3) 3% (0-3) Basophils (%) (Auto) 2% (0-3) 3% (0-3) Neutrophils # (Auto) 2.1x10^3uL (1.8-7.7) 1.9x10^3uL (1.8-7.7) Lymphocytes # (Auto) 0.9x10^3/uL (1.0-4.8) 1.3x10^3/uL (1.0-4.8) Monocytes # (Auto) 0.3x10^3/uL (0.0-1.1) 0.4x10^3/uL (0.0-1.1) Eosinophils # (Auto) 0.0x10^3/uL (0.0-0.7) 0.1x10^3/uL (0.0-0.7) Basophils # (Auto) 0.1x10^3/uL (0.0-0.2) 0.1x10^3/uL (0.0-0.2) Platelet Estimate Adequate (ADEQUATE) Anisocytosis Mod Stomatocytes Occ Urine Collection Type Unknown Urine Color Yellow Urine Clarity Clear Urine pH 7.5 Urine Specific Mckinnon 1.015 Urine Protein Negativemg/dL (NEG-TRACE) Urine Glucose (UA) Negativemg/dL (NEG) Urine Ketones (Stick) Negativemg/dL (NEG) Urine Blood Negative (NEG) Urine Nitrite Negative (NEG) Urine Bilirubin Negative (NEG) Urine Urobilinogen Dipstick 1.0mg/dL (0.2 mg/dL) Urine Leukocyte Esterase Moderate (NEG) Urine RBC 1-2/HPF (0-2) Urine WBC 11-20/HPF (0-4) Urine Squamous Epithelial Cells Mod/LPF Urine Bacteria Many/HPF (0-FEW) Sodium Level 144mmol/L (136-145) 143mmol/L (136-145) Potassium Level 3.6mmol/L (3.5-5.1) 3.4mmol/L (3.5-5.1) Chloride Level 107mmol/L (98-107) 107mmol/L (98-107) Carbon Dioxide Level 27mmol/L (21-32) 27mmol/L (21-32) Anion Gap 10 (6-14) 9 (6-14) Blood Urea Nitrogen 18mg/dL (7-20) 18mg/dL (7-20) Creatinine 0.5mg/dL (0.6-1.0) 0.6mg/dL (0.6-1.0) Estimated GFR (Cockcroft-Gault) 151.8 123.0 BUN/Creatinine Ratio 36 (6-20) 30 (6-20) Glucose Level 95mg/dL (70-99) 88mg/dL (70-99) Lactic Acid Level 1.4mmol/L (0.4-2.0) Calcium Level 9.6mg/dL (8.5-10.1) 9.2mg/dL (8.5-10.1) Phosphorus Level 3.7mg/dL (2.6-4.7) 5.1mg/dL (2.6-4.7) Magnesium Level 1.8mg/dL (1.8-2.4) 1.7mg/dL (1.8-2.4) Total Bilirubin 2.4mg/dL (0.2-1.0) 2.5mg/dL (0.2-1.0) Aspartate Amino Transf (AST/SGOT) 152U/L (15-37) 144U/L (15-37) Alanine Aminotransferase (ALT/SGPT) 125U/L (14-59) 128U/L (14-59) Alkaline Phosphatase 1063U/L (46-116) 910U/L (46-116) Troponin I Quantitative < 0.017ng/mL (0.000-0.055) Total Protein 8.6g/dL (6.4-8.2) 7.7g/dL (6.4-8.2) Albumin 2.9g/dL (3.4-5.0) 2.7g/dL (3.4-5.0) Albumin/Globulin Ratio 0.5 (1.0-1.7) 0.5 (1.0-1.7) Lipase 221U/L (73-393) Prothrombin Time 14.2SEC (11.7-14.0) Prothromb Time International Ratio 1.2 (0.8-1.1) Triglycerides Level 45mg/dL (0-150) Laboratory Tests Test 09/11/16 06:20 White Blood Count 3.8x10^3/uL (4.0-11.0) Red Blood Count 3.84x10^6/uL (3.50-5.40) Hemoglobin 10.1g/dL (12.0-15.5) Hematocrit 32.1% (36.0-47.0) Mean Corpuscular Volume 83fL (79-100) Mean Corpuscular Hemoglobin 26pg (25-35) Mean Corpuscular Hemoglobin Concent 32g/dL (31-37) Red Cell Distribution Width 21.2% (11.5-14.5) Platelet Count 331x10^3/uL (140-400) Neutrophils (%) (Auto) 50% (31-73) Lymphocytes (%) (Auto) 34% (24-48) Monocytes (%) (Auto) 10% (0-9) Eosinophils (%) (Auto) 3% (0-3) Basophils (%) (Auto) 3% (0-3) Neutrophils # (Auto) 1.9x10^3uL (1.8-7.7) Lymphocytes # (Auto) 1.3x10^3/uL (1.0-4.8) Monocytes # (Auto) 0.4x10^3/uL (0.0-1.1) Eosinophils # (Auto) 0.1x10^3/uL (0.0-0.7) Basophils # (Auto) 0.1x10^3/uL (0.0-0.2) Prothrombin Time 14.2SEC (11.7-14.0) Prothromb Time International Ratio 1.2 (0.8-1.1) Sodium Level 143mmol/L (136-145) Potassium Level 3.4mmol/L (3.5-5.1) Chloride Level 107mmol/L (98-107) Carbon Dioxide Level 27mmol/L (21-32) Anion Gap 9 (6-14) Blood Urea Nitrogen 18mg/dL (7-20) Creatinine 0.6mg/dL (0.6-1.0) Estimated GFR (Cockcroft-Gault) 123.0 BUN/Creatinine Ratio 30 (6-20) Glucose Level 88mg/dL (70-99) Calcium Level 9.2mg/dL (8.5-10.1) Phosphorus Level 5.1mg/dL (2.6-4.7) Magnesium Level 1.7mg/dL (1.8-2.4) Total Bilirubin 2.5mg/dL (0.2-1.0) Aspartate Amino Transf (AST/SGOT) 144U/L (15-37) Alanine Aminotransferase (ALT/SGPT) 128U/L (14-59) Alkaline Phosphatase 910U/L (46-116) Total Protein 7.7g/dL (6.4-8.2) Albumin 2.7g/dL (3.4-5.0) Albumin/Globulin Ratio 0.5 (1.0-1.7) Triglycerides Level 45mg/dL (0-150) Medications Current Medications Ondansetron HCl (Zofran) 4 mg STK-MED ONCE .ROUTE ; Start 09/10/16 at 08:18; Stop 09/10/16 at 08:19; Status DC Hydromorphone HCl 2 mg 2 mg STK-MED ONCE .ROUTE ; Start 09/10/16 at 08:18; Stop 09/10/16 at 08:19; Status DC Sodium Chloride (Iv Sodium Chloride 0.9% 1000ml Bag) 1,000 ml @ 1,000 mls/hr 1X ONCE IV Last administered on 09/10/16 08:33; Start 09/10/16 at 08:30; Stop 09/10/16 at 09:29; Status DC Ondansetron HCl (Zofran) 4 mg 1X ONCE IV ; Start 09/10/16 at 08:30; Stop at 08:30; Status DC Hydromorphone HCl (Dilaudid) 1 mg PRN Q15MIN PRN IV/SQ PAIN GREATER THAN 3/10 Last administered on 09/10/16 10:40; Start 09/10/16 at 08:30; Stop 09/11/16 at 08:29; Status DC Ondansetron HCl (Zofran) 4 mg ONCE ONCE IV Last administered on 09/10/16 08: 31; Start 09/10/16 at 08:30; Stop 09/10/16 at 08:31; Status DC Info 1 each PRN DAILY PRN MC SEE COMMENTS Last administered on 09/10/16 13:25 ; Start 09/10/16 at 10:30 Ondansetron HCl (Zofran) 4 mg Q6HRS IV ; Start 09/10/16 at 12:00; Stop 09/11/16 at 11:59 Hydromorphone HCl 1 mg 1 mg PRN Q4HRS PRN IV PAIN; Start 09/10/16 at 10:30; Stop 09/10/16 at 12:06; Status DC Dextrose/Sodium Chloride (Iv D5% - NS) 1,000 ml @ 80 mls/hr 1X ONCE IV Last administered on 09/10/16 12:29; Start 09/10/16 at 10:30; Stop 09/10/16 at 22:59 ; Status DC Hydralazine HCl 10 mg 10 mg PRN Q4HRS PRN IVP ELEVATED BP, SEE COMMENTS Last administered on 09/10/16 12:34; Start 09/10/16 at 10:45 Sodium Chloride/ Sodium Acetate/ Potassium Chloride/ Magnesium Sulfate/ Multivitamins/ Chromium/Copper/ Manganese/Seleni/ Zn/Total Parenteral Nutrition/ Amino Acids/Dextrose/ Fat Emulsion Intravenous (Sodium Chloride/ Infuvite Adult / Multitrace-5 Conc/ Tpn - Tpn Fluid/ Dextr... 1,920 ml @ 80 mls/hr TPN CONT IV ; Start 09/10/16 at 22:00; Stop 09/11/16 at 21:59 Hydromorphone HCl (Dilaudid) 2 mg PRN Q4HRS PRN IV PAIN Last administered on 06:14; Start 09/10/16 at 12:00 Pantoprazole Sodium (Protonix Vial) 40 mg DAILYAC IVP Last administered on 09/10 14:05; Start 09/10/16 at 13:00; Stop 09/11/16 at 06:17; Status DC Amlodipine Besylate (Norvasc) 5 mg DAILY PO Last administered on 09/10/16 14: 05; Start 09/10/16 at 13:00 Sertraline HCl (Zoloft) 50 mg DAILY PO ; Start 09/11/16 at 09:00 Ondansetron HCl (Zofran) 4 mg Q6HRS IV Last administered on 09/11/16 05:51; Start 09/10/16 at 12:00 Acetaminophen 650 mg 650 mg Q4HRS PRN PO MILD PAIN / TEMP; Start 09/10/16 at 12 :00 Potassium Chloride/Dextrose/ Sodium Chloride (Iv D5% - 1/2 NS) 1,015 ml @ 125 mls/hr Q8H8M IV Last administered on 09/11/16 05:41; Start 09/10/16 at 12:00; Stop 09/10/16 at 21:59; Status DC Zolpidem Tartrate (Ambien) 5 mg PRN QHS PRN PO INSOMNIA; Start 09/10/16 at 12: 30 Lorazepam 0.5 mg 0.5 mg PRN Q6HRS PRN PO ANXIETY / AGITATION; Start 09/10/16 at 12:30 Potassium Chloride/Dextrose/ Sod Cl (KCl 20 Meq In D5W-1/2 NS) 1,000 ml @ 125 mls/hr Q8H IV ; Start 09/10/16 at 12:30; Status UNV Hydromorphone HCl (Dilaudid) 4 mg PRN Q4HRS PRN IV PAIN SEVERE Last administered on 09/10/16 17:46; Start 09/10/16 at 13:30 Pantoprazole Sodium (Protonix Vial) 40 mg DAILYAC IVP ; Start 09/11/16 at 07:30 Active Scripts Active Anaspaz (Hyoscyamine Sulfate) 0.125 Mg Tab.rapdis 0.125 Mg PO Q6HRS PRN Sertraline Hcl 50 Mg Tablet 100 Mg PO DAILY 30 Days Protonix (Pantoprazole Sodium) 40 Mg Tablet.dr 1 Tab PO DAILY Zinc Oxide 56.7 Gm Oint...g. 1 Sang TP BID Lidocaine 35.44 Gm Oint...g. 1 Sang TP BID Reported Famotidine 20 Mg Tablet 20 Mg PO DAILY Amlodipine Besylate 5 Mg Tablet 5 Mg PO DAILY Acetaminophen Supp (Acetaminophen) 650 Mg Supp.rect 650 Mg RC Q4HRS Ondansetron HCl 4 mg/2 ml Syr (Ondansetron HCl/Pf) 4 Mg/2 Ml Syringe 8 Mg IJ Q8HRS PRN Lorazepam 0.5 Mg Tablet 0.5 Mg PO Q6HRS PRN Hydromorphone 2 Mg/Ml Syringe (Hydromorphone Hcl) 2 Mg/1 Ml Disp.syrin 2 Mg IJ Q4HRS PRN Melatonin 3 Mg Tablet (Melatonin/Pyridoxine) 1 Each Tablet 1 Each PO QHS Virt-Caps Softgel (B Complex & C No.20/Folic Acid) 1 Mg Capsule 1 Mg PO DAILY Aranesp Syringe (Darbepoetin Sarbjit In Polysorbat) 60 Mcg/0.3 Ml Disp.syrin 60 Mcg SQ WEEKLY Vitals/I & O Vital Sign - Last 24 Hours 09/10/16 09/10/16 09/10/16 09/10/16 10:55 11:30 12:30 12:34 Pulse 76 77 82 Resp 12 13 B/P 212/ 220/95 205/92 205/94 Pulse Ox 97 96 O2 Delivery Room Air Room Air 09/10/16 09/10/16 09/10/16 09/10/16 12:46 13:00 13:00 13:00 Temp 98.5 98.5 98.5 98.5 Pulse 83 83 80 Resp 18 18 24 B/P 201/93 170/92 170/92 195/99 Pulse Ox 99 99 98 O2 Delivery Room Air Room Air Room Air 09/10/16 09/10/16 09/10/16 09/10/16 13:00 13:37 14:05 14:11 Pulse 83 B/P 201/ 183/92 O2 Delivery Room Air Room Air 09/10/16 09/10/16 09/10/16 09/10/16 14:12 17:46 19:00 19:00 Temp 97.7 97.7 Pulse 76 Resp 18 B/P 135/59 Pulse Ox 99 99 99 96 O2 Delivery Room Air Room Air Room Air 09/10/16 09/10/16 09/10/16 09/11/16 20:00 21:46 22:55 02:07 Temp 98.1 98.1 Pulse 72 Resp 18 B/P 135/54 Pulse Ox 99 99 99 O2 Delivery Room Air Room Air Room Air Room Air 09/11/16 09/11/16 09/11/16 03:00 06:14 07:00 Temp 98.4 97.9 98.4 97.9 Pulse 87 81 Resp 19 18 B/P 137/56 134/62 Pulse Ox 97 97 98 O2 Delivery Room Air Room Air Room Air Intake and Output 09/10/16 09/10/16 09/11/16 15:00 23:00 07:00 Intake Total 1250 ml 0 ml Output Total 1800 ml 350 ml 100 ml Balance -550 ml -350 ml -100 ml BENITA LUTZ MD Sep 11, 2016 09:23
[2016-09-11] MEDS: PANTOPRAZOLE IV PUSH 40 MG VIAL. IVP SCH (09:39)
[2016-09-11] MEDS: AMLODIPINE BESYLATE 5 MG TABLET. PO SCH ×2 (09:39→09:56)
[2016-09-11] MEDS: SERTRALINE 50 MG TABLET. PO SCH ×2 (09:39→09:56)
[2016-09-11 10:45] VITALS: BP 154/88
[2016-09-11] MEDS: TPN PER PHARMACY MC PRN (11:42)
--- NOTE | 2016-09-11 13:30 | PDOC ---
Subjective: Subjective: Appliance covering fistulas fell off. Objective: Objective: Per RN - green emesis x 2 this morning, pain rated 10/10 but improved w/ Dilaudid. Vital Signs: Vital Signs Date Time Temp Pulse Resp B/P Pulse Ox O2 Delivery O2 Flow Rate FiO2 09/11/16 10:45 97.7 88 16 154/88 97 Room Air 97.7 Labs: Laboratory Tests Test 09/11/16 06:20 White Blood Count 3.8x10^3/uL Red Blood Count 3.84x10^6/uL Hemoglobin 10.1g/dL Hematocrit 32.1% Mean Corpuscular Volume 83fL Mean Corpuscular Hemoglobin 26pg Mean Corpuscular Hemoglobin Concent 32g/dL Red Cell Distribution Width 21.2% Platelet Count 331x10^3/uL Neutrophils (%) (Auto) 50% Lymphocytes (%) (Auto) 34% Monocytes (%) (Auto) 10% Eosinophils (%) (Auto) 3% Basophils (%) (Auto) 3% Neutrophils # (Auto) 1.9x10^3uL Lymphocytes # (Auto) 1.3x10^3/uL Monocytes # (Auto) 0.4x10^3/uL Eosinophils # (Auto) 0.1x10^3/uL Basophils # (Auto) 0.1x10^3/uL Prothrombin Time 14.2SEC Prothromb Time International Ratio 1.2 Sodium Level 143mmol/L Potassium Level 3.4mmol/L Chloride Level 107mmol/L Carbon Dioxide Level 27mmol/L Anion Gap 9 Blood Urea Nitrogen 18mg/dL Creatinine 0.6mg/dL Estimated GFR (Cockcroft-Gault) 123.0 BUN/Creatinine Ratio 30 Glucose Level 88mg/dL Calcium Level 9.2mg/dL Phosphorus Level 5.1mg/dL Magnesium Level 1.7mg/dL Total Bilirubin 2.5mg/dL Aspartate Amino Transf (AST/SGOT) 144U/L Alanine Aminotransferase (ALT/SGPT) 128U/L Alkaline Phosphatase 910U/L Total Protein 7.7g/dL Albumin 2.7g/dL Albumin/Globulin Ratio 0.5 Triglycerides Level 45mg/dL Imaging: MRCP 09/10/16 IMPRESSION: 1. Status post cholecystectomy. 2. Mild kink in the common bile duct without evidence of high-grade obstruction. PE: GEN: NAD LUNGS: CTAB HEART: RRR ABD: NABS, S/ND/NT NEURO/PSYCH: A & O 3 A/P: Elevated LFTs - stable -s/p cholecystectomy -previous CT and US unrevealing, MRCP w/ "kink" in CBD as above Abd pain, vomiting H/o diverticular disease w/ fistulas, multiple abd surgeries -- Will ask wound care to see re: fistulas. Other per Dr. Ovalle. MIESHA RICO Sep 11, 2016 13:30
[2016-09-11 15:00] VITALS: BP 124/74
[2016-09-11 19:00] VITALS: BP 156/58
[2016-09-11] MEDS ORDERED: DEXTROSE 70% IV SCH ×9 (22:00)
[2016-09-11] MEDS ORDERED: TOTAL PARENTERAL NUTRITION IV SCH ×9 (22:00)
[2016-09-11] MEDS ORDERED: [UNRECOGNIZED DRUG - OTHER] IV SCH ×9 (22:00)
[2016-09-11] MEDS ORDERED: AMINO ACID IV SCH ×9 (22:00)
[2016-09-11 23:00] VITALS: BP 197/71
[2016-09-12] VITALS (7 sets, daily range): BP systolic 149–188; BP diastolic 68–86
[2016-09-12] MEDS: ONDANSETRON PF 4 MG/2 ML VIAL. IV SCH ×4 (00:08→16:08)
[2016-09-12] MEDS: HYDROMORPHONE 2 MG/ML VIAL. IV PRN ×5 (02:45→20:11)
[2016-09-12 06:50] LABS: BASO # 0.1 x10^3/uL (0.0-0.2); BASO % 2 % (0-3); EOS % 4 % (0-3); HEMATOCRIT 33.3 % (36.0-47.0); HEMOGLOBIN 10.6 g/dL (12.0-15.5); LYMPH # 1.3 x10^3/uL (1.0-4.8); LYMPH % 36 % (24-48); MEAN CORPUSCULAR HEMOGLOBIN 26 pg (25-35); MEAN CORPUSCULAR HGB CONC 32 g/dL (31-37); MEAN CORPUSCULAR VOLUME 82 fL (79-100); MONO % 10 % (0-9); NEUT % 48 % (31-73); PLATELET COUNT 339 x10^3/uL (140-400); RED BLOOD COUNT 4.09 x10^6/uL (3.50-5.40); RED CELL DISTRIBUTION WIDTH 21.1 % (11.5-14.5); WHITE BLOOD COUNT 3.6 x10^3/uL (4.0-11.0)
[2016-09-12 07:01] LABS: CALCIUM 8.9 mg/dL (8.5-10.1); CREATININE 0.5 mg/dL (0.6-1.0); GFR 151.8; MAGNESIUM 1.8 mg/dL (1.8-2.4); PHOSPHORUS 4.2 mg/dL (2.6-4.7); POTASSIUM 4.2 mmol/L (3.5-5.1)
[2016-09-12 07:04] LABS: ALBUMIN 2.8 g/dL (3.4-5.0); DIRECT BILIRUBIN 1.5 mg/dL (0.0-0.2); TOTAL BILIRUBIN 2.2 mg/dL (0.2-1.0)
[2016-09-12] MEDS: PANTOPRAZOLE IV PUSH 40 MG VIAL. IVP SCH (08:27)
--- NOTE | 2016-09-12 09:51 | PDOC ---
G I PROGRESS NOTE Subjective "About the same". Difficult to assess pain as baseline is not pain-free by any stretch. Really can't tell me if presenting pain is different from her chronic issues. Physical Exam Lungs clear. RRR Abdomen soft, not distended. Mildly/diffusely tender. Review of Relevant I have reviewed the following items lucila (where applicable) has been applied. Labs Laboratory Tests Test 09/11/16 06:20 09/12/16 06:40 White Blood Count 3.8x10^3/uL (4.0-11.0) 3.6x10^3/uL (4.0-11.0) Red Blood Count 3.84x10^6/uL (3.50-5.40) 4.09x10^6/uL (3.50-5.40) Hemoglobin 10.1g/dL (12.0-15.5) 10.6g/dL (12.0-15.5) Hematocrit 32.1% (36.0-47.0) 33.3% (36.0-47.0) Mean Corpuscular Volume 83fL (79-100) 82fL (79-100) Mean Corpuscular Hemoglobin 26pg (25-35) 26pg (25-35) Mean Corpuscular Hemoglobin Concent 32g/dL (31-37) 32g/dL (31-37) Red Cell Distribution Width 21.2% (11.5-14.5) 21.1% (11.5-14.5) Platelet Count 331x10^3/uL (140-400) 339x10^3/uL (140-400) Neutrophils (%) (Auto) 50% (31-73) 48% (31-73) Lymphocytes (%) (Auto) 34% (24-48) 36% (24-48) Monocytes (%) (Auto) 10% (0-9) 10% (0-9) Eosinophils (%) (Auto) 3% (0-3) 4% (0-3) Basophils (%) (Auto) 3% (0-3) 2% (0-3) Neutrophils # (Auto) 1.9x10^3uL (1.8-7.7) 1.7x10^3uL (1.8-7.7) Lymphocytes # (Auto) 1.3x10^3/uL (1.0-4.8) 1.3x10^3/uL (1.0-4.8) Monocytes # (Auto) 0.4x10^3/uL (0.0-1.1) 0.4x10^3/uL (0.0-1.1) Eosinophils # (Auto) 0.1x10^3/uL (0.0-0.7) 0.1x10^3/uL (0.0-0.7) Basophils # (Auto) 0.1x10^3/uL (0.0-0.2) 0.1x10^3/uL (0.0-0.2) Prothrombin Time 14.2SEC (11.7-14.0) Prothromb Time International Ratio 1.2 (0.8-1.1) Sodium Level 143mmol/L (136-145) 139mmol/L (136-145) Potassium Level 3.4mmol/L (3.5-5.1) 4.2mmol/L (3.5-5.1) Chloride Level 107mmol/L (98-107) 104mmol/L (98-107) Carbon Dioxide Level 27mmol/L (21-32) 26mmol/L (21-32) Anion Gap 9 (6-14) 9 (6-14) Blood Urea Nitrogen 18mg/dL (7-20) 19mg/dL (7-20) Creatinine 0.6mg/dL (0.6-1.0) 0.5mg/dL (0.6-1.0) Estimated GFR (Cockcroft-Gault) 123.0 151.8 BUN/Creatinine Ratio 30 (6-20) Glucose Level 88mg/dL (70-99) 92mg/dL (70-99) Calcium Level 9.2mg/dL (8.5-10.1) 8.9mg/dL (8.5-10.1) Phosphorus Level 5.1mg/dL (2.6-4.7) 4.2mg/dL (2.6-4.7) Magnesium Level 1.7mg/dL (1.8-2.4) 1.8mg/dL (1.8-2.4) Total Bilirubin 2.5mg/dL (0.2-1.0) 2.2mg/dL (0.2-1.0) Aspartate Amino Transf (AST/SGOT) 144U/L (15-37) 121U/L (15-37) Alanine Aminotransferase (ALT/SGPT) 128U/L (14-59) 120U/L (14-59) Alkaline Phosphatase 910U/L (46-116) 825U/L (46-116) Total Protein 7.7g/dL (6.4-8.2) 8.0g/dL (6.4-8.2) Albumin 2.7g/dL (3.4-5.0) 2.8g/dL (3.4-5.0) Albumin/Globulin Ratio 0.5 (1.0-1.7) Triglycerides Level 45mg/dL (0-150) Direct Bilirubin 1.5mg/dL (0.0-0.2) Laboratory Tests Test 09/12/16 06:40 White Blood Count 3.6x10^3/uL (4.0-11.0) Red Blood Count 4.09x10^6/uL (3.50-5.40) Hemoglobin 10.6g/dL (12.0-15.5) Hematocrit 33.3% (36.0-47.0) Mean Corpuscular Volume 82fL (79-100) Mean Corpuscular Hemoglobin 26pg (25-35) Mean Corpuscular Hemoglobin Concent 32g/dL (31-37) Red Cell Distribution Width 21.1% (11.5-14.5) Platelet Count 339x10^3/uL (140-400) Neutrophils (%) (Auto) 48% (31-73) Lymphocytes (%) (Auto) 36% (24-48) Monocytes (%) (Auto) 10% (0-9) Eosinophils (%) (Auto) 4% (0-3) Basophils (%) (Auto) 2% (0-3) Neutrophils # (Auto) 1.7x10^3uL (1.8-7.7) Lymphocytes # (Auto) 1.3x10^3/uL (1.0-4.8) Monocytes # (Auto) 0.4x10^3/uL (0.0-1.1) Eosinophils # (Auto) 0.1x10^3/uL (0.0-0.7) Basophils # (Auto) 0.1x10^3/uL (0.0-0.2) Sodium Level 139mmol/L (136-145) Potassium Level 4.2mmol/L (3.5-5.1) Chloride Level 104mmol/L (98-107) Carbon Dioxide Level 26mmol/L (21-32) Anion Gap 9 (6-14) Blood Urea Nitrogen 19mg/dL (7-20) Creatinine 0.5mg/dL (0.6-1.0) Estimated GFR (Cockcroft-Gault) 151.8 Glucose Level 92mg/dL (70-99) Calcium Level 8.9mg/dL (8.5-10.1) Phosphorus Level 4.2mg/dL (2.6-4.7) Magnesium Level 1.8mg/dL (1.8-2.4) Total Bilirubin 2.2mg/dL (0.2-1.0) Direct Bilirubin 1.5mg/dL (0.0-0.2) Aspartate Amino Transf (AST/SGOT) 121U/L (15-37) Alanine Aminotransferase (ALT/SGPT) 120U/L (14-59) Alkaline Phosphatase 825U/L (46-116) Total Protein 8.0g/dL (6.4-8.2) Albumin 2.8g/dL (3.4-5.0) Microbiology 09/10/16 Urine Culture - Preliminary, Resulted 09/10/16 Urine Culture Result 1 (ROYA) - Preliminary, Resulted GNR to be speciated. Lft's about the same, not worse. Medications Current Medications Ondansetron HCl (Zofran) 4 mg STK-MED ONCE .ROUTE ; Start 09/10/16 at 08:18; Stop 09/10/16 at 08:19; Status DC Hydromorphone HCl 2 mg 2 mg STK-MED ONCE .ROUTE ; Start 09/10/16 at 08:18; Stop 09/10/16 at 08:19; Status DC Sodium Chloride (Iv Sodium Chloride 0.9% 1000ml Bag) 1,000 ml @ 1,000 mls/hr 1X ONCE IV Last administered on 09/10/16t 08:33; Start 09/10/16 at 08:30; Stop 09/10/16 at 09:29; Status DC Ondansetron HCl (Zofran) 4 mg 1X ONCE IV ; Start 09/10/16 at 08:30; Stop at 08:30; Status DC Hydromorphone HCl (Dilaudid) 1 mg PRN Q15MIN PRN IV/SQ PAIN GREATER THAN 3/10 Last administered on 09/10/16 10:40; Start 09/10/16 at 08:30; Stop 09/11/16 at 08:29; Status DC Ondansetron HCl (Zofran) 4 mg ONCE ONCE IV Last administered on 09/10/16 08: 31; Start 09/10/16 at 08:30; Stop 09/10/16 at 08:31; Status DC Info 1 each PRN DAILY PRN MC SEE COMMENTS Last administered on 09/11/16 11:42 ; Start 09/10/16 at 10:30 Ondansetron HCl (Zofran) 4 mg Q6HRS IV ; Start 09/10/16 at 12:00; Stop 09/11/16 at 11:59; Status DC Hydromorphone HCl 1 mg 1 mg PRN Q4HRS PRN IV PAIN; Start 09/10/16 at 10:30; Stop 09/10/16 at 12:06; Status DC Dextrose/Sodium Chloride (Iv D5% - NS) 1,000 ml @ 80 mls/hr 1X ONCE IV Last administered on 09/10/16 12:29; Start 09/10/16 at 10:30; Stop 09/11/16 at 10:48 ; Status DC Hydralazine HCl 10 mg 10 mg PRN Q4HRS PRN IVP ELEVATED BP, SEE COMMENTS Last administered on 09/10/16 12:34; Start 09/10/16 at 10:45 Sodium Chloride/ Sodium Acetate/ Potassium Chloride/ Magnesium Sulfate/ Multivitamins/ Chromium/Copper/ Manganese/Seleni/ Zn/Total Parenteral Nutrition/ Amino Acids/Dextrose/ Fat Emulsion Intravenous (Sodium Chloride/ Infuvite Adult / Multitrace-5 Conc/ Tpn - Tpn Fluid/ Dextr... 1,920 ml @ 80 mls/hr TPN CONT IV Last administered on 09/11/16 10:45; Start 09/10/16 at 22:00; Stop at 21:59; Status DC Hydromorphone HCl (Dilaudid) 2 mg PRN Q4HRS PRN IV PAIN Last administered on 06:14; Start 09/10/16 at 12:00 Pantoprazole Sodium (Protonix Vial) 40 mg DAILYAC IVP Last administered on 09/10 14:05; Start 09/10/16 at 13:00; Stop 09/11/16 at 06:17; Status DC Amlodipine Besylate (Norvasc) 5 mg DAILY PO Last administered on 09/11/16 09: 56; Start 09/10/16 at 13:00 Sertraline HCl (Zoloft) 50 mg DAILY PO Last administered on 09/11/16 09:56; Start 09/11/16 at 09:00 Ondansetron HCl (Zofran) 4 mg Q6HRS IV Last administered on 09/12/16 06:26; Start 09/10/16 at 12:00 Acetaminophen 650 mg 650 mg Q4HRS PRN PO MILD PAIN / TEMP; Start 09/10/16 at 12 :00 Potassium Chloride/Dextrose/ Sodium Chloride (Iv D5% - 1/2 NS) 1,015 ml @ 125 mls/hr Q8H8M IV Last administered on 09/11/16 05:41; Start 09/10/16 at 12:00; Stop 09/10/16 at 21:59; Status DC Zolpidem Tartrate (Ambien) 5 mg PRN QHS PRN PO INSOMNIA; Start 09/10/16 at 12: 30 Lorazepam 0.5 mg 0.5 mg PRN Q6HRS PRN PO ANXIETY / AGITATION; Start 09/10/16 at 12:30 Potassium Chloride/Dextrose/ Sod Cl (KCl 20 Meq In D5W-1/2 NS) 1,000 ml @ 125 mls/hr Q8H IV ; Start 09/10/16 at 12:30; Status UNV Hydromorphone HCl (Dilaudid) 4 mg PRN Q4HRS PRN IV PAIN SEVERE Last administered on 09/12/16 06:36; Start 09/10/16 at 13:30 Pantoprazole Sodium 40 mg 40 mg DAILYAC IVP Last administered on 09/12/16 08:27 ; Start 09/11/16 at 07:30 Magnesium Sulfate/ Dextrose (Magnesium Sulfate PREMIX 2GM) 50 ml @ 25 mls/hr 1X ONCE IV Last administered on 09/11/16 09:40; Start 09/11/16 at 09:15; Stop 09/11/16 at 11:14; Status DC Potassium Chloride 20 meq 20 meq 1X ONCE PO Last administered on 09/11/16 09: 56; Start 09/11/16 at 09:15; Stop 09/11/16 at 09:21; Status DC Sodium Chloride/ Potassium Chloride/ Magnesium Sulfate/ Multivitamins/ Chromium/ Copper/ Manganese/Seleni/ Zn/Sodium Acetate/ Total Parenteral Nutrition/Amino Acids/Dextrose/ Fat Emulsion Intravenous (Sodium Chloride/ Infuvite Adult/ Multitrace-5 Conc/ Tpn - Tpn Fluid/ Dextrose 70%-Water Iv So... 1,920 ml @ 80 mls/hr TPN CONT IV Last administered on 09/11/16 21:20; Start 09/11/16 at 22: 00; Stop 09/12/16 at 21:59 Active Scripts Active Anaspaz (Hyoscyamine Sulfate) 0.125 Mg Tab.rapdis 0.125 Mg PO Q6HRS PRN Sertraline Hcl 50 Mg Tablet 100 Mg PO DAILY 30 Days Protonix (Pantoprazole Sodium) 40 Mg Tablet.dr 1 Tab PO DAILY Zinc Oxide 56.7 Gm Oint...g. 1 Sang TP BID Lidocaine 35.44 Gm Oint...g. 1 Sang TP BID Reported Famotidine 20 Mg Tablet 20 Mg PO DAILY Amlodipine Besylate 5 Mg Tablet 5 Mg PO DAILY Acetaminophen Supp (Acetaminophen) 650 Mg Supp.rect 650 Mg RC Q4HRS Ondansetron HCl 4 mg/2 ml Syr (Ondansetron HCl/Pf) 4 Mg/2 Ml Syringe 8 Mg IJ Q8HRS PRN Lorazepam 0.5 Mg Tablet 0.5 Mg PO Q6HRS PRN Hydromorphone 2 Mg/Ml Syringe (Hydromorphone Hcl) 2 Mg/1 Ml Disp.syrin 2 Mg IJ Q4HRS PRN Melatonin 3 Mg Tablet (Melatonin/Pyridoxine) 1 Each Tablet 1 Each PO QHS Virt-Caps Softgel (B Complex & C No.20/Folic Acid) 1 Mg Capsule 1 Mg PO DAILY Aranesp Syringe (Darbepoetin Sarbjit In Polysorbat) 60 Mcg/0.3 Ml Disp.syrin 60 Mcg SQ WEEKLY Vitals/I & O Vital Sign - Last 24 Hours 09/11/16 09/11/16 09/11/16 09/11/16 09:56 09:57 10:45 14:17 Temp 97.7 97.7 Pulse 81 88 Resp 18 B/P 134/62 154/88 Pulse Ox 98 97 97 O2 Delivery Room Air Room Air Room Air 09/11/16 09/11/16 09/11/16 09/11/16 14:47 15:00 18:29 19:00 Temp 97.8 97.9 97.8 97.9 Pulse 71 64 Resp 18 18 B/P 124/74 156/58 Pulse Ox 97 97 97 96 O2 Delivery Room Air Room Air Room Air Room Air 09/11/16 09/11/16 09/12/16 09/12/16 20:00 23:00 03:00 07:33 Temp 97.9 98.1 97.7 97.9 98.1 97.7 Pulse 80 74 80 Resp 18 B/P 197/71 166/75 167/68 Pulse Ox 100 100 97 O2 Delivery Room Air Room Air Room Air Room Air 09/12/16 08:00 O2 Delivery Room Air Intake and Output 09/11/16 09/11/16 09/12/16 15:00 23:00 07:00 Intake Total 0 ml 0 ml Balance 0 ml 0 ml Problem List Problems Medical Problems: (1) Abdominal pain Status: Acute (2) Accelerated hypertension Status: Acute (3) Enterocutaneous fistula Status: Acute (4) Generalized weakness Status: Acute (5) Hematemesis Status: Acute (6) Nausea and vomiting Status: Acute Assessment Abdominal pain/abnormal LFT's--not clear biliary issue on MRCP and historically no stones at [facility] she recalls. HAV can look cholestatic, but pain out of character. UTI, recurrent/persistent. Contributes to syndrome? Plan of Care: Continue current Tx, Mgmt Plan of Care Note Await ID and sens on urine bug. Seems watchful waiting may be best re: LFT's--monitor. BENITA CALVILLO MD Sep 12, 2016 09:51
--- NOTE | 2016-09-12 11:08 | PDOC ---
PROGRESS NOTES Subjective Subjective feels better. vomited once this morning and twice yesterday. lab reviewed. blood pressure is high. afebrile. urine culture growing GNR but has enterovesical fistula Objective Objective Vital Signs Date Time Temp Pulse Resp B/P Pulse Ox O2 Delivery O2 Flow Rate FiO2 09/12/16 10:57 16 Room Air 09/12/16 07:33 97.7 80 167/68 97 97.7 Intake and Output 09/12/16 06:59 Intake Total 0 ml Balance 0 ml Intake Oral 0 ml # Voids 8 Physical Exam Abdomen: Soft, Other (enterocutaneous fistula) Heart: Regular rate, Normal S1, Normal S2 Extremities: No edema General: Alert HEENT: Atraumatic Lungs: Clear to auscultation Neuro: Normal speech Psych/Mental Status: Mental status NL Skin: No rashes Assessment Assessment Problems Medical Problems:1. Recurrent vomiting 2. Elevated liver function tests. 3. Enterocutaneous fistula. 4. Enterovesical fistula. 5. Hypertension. BP high 6. Depression. hypokalemia resolved hypomagnesemia resolved common bile duct kink on MRCP without high grade obstruction GNR in urine in setting of enterovesical fistula. afebrile (1) Abdominal pain Status: Acute (2) Accelerated hypertension Status: Acute (3) Enterocutaneous fistula Status: Acute (4) Generalized weakness Status: Acute (5) Hematemesis Status: Acute (6) Nausea and vomiting Status: Acute Plan Plan of Care increase amlodipine continue TPN ambulate monitor LFT continue iv zofran analgesics prn await urine culture results. usually dont treat bacteriuria in setting of enterovesical fistula unless she is febrile . Comment Review of Relevant I have reviewed the following items lucila (where applicable) has been applied. Labs Laboratory Tests Test 09/11/16 06:20 09/12/16 06:40 White Blood Count 3.8x10^3/uL (4.0-11.0) 3.6x10^3/uL (4.0-11.0) Red Blood Count 3.84x10^6/uL (3.50-5.40) 4.09x10^6/uL (3.50-5.40) Hemoglobin 10.1g/dL (12.0-15.5) 10.6g/dL (12.0-15.5) Hematocrit 32.1% (36.0-47.0) 33.3% (36.0-47.0) Mean Corpuscular Volume 83fL (79-100) 82fL (79-100) Mean Corpuscular Hemoglobin 26pg (25-35) 26pg (25-35) Mean Corpuscular Hemoglobin Concent 32g/dL (31-37) 32g/dL (31-37) Red Cell Distribution Width 21.2% (11.5-14.5) 21.1% (11.5-14.5) Platelet Count 331x10^3/uL (140-400) 339x10^3/uL (140-400) Neutrophils (%) (Auto) 50% (31-73) 48% (31-73) Lymphocytes (%) (Auto) 34% (24-48) 36% (24-48) Monocytes (%) (Auto) 10% (0-9) 10% (0-9) Eosinophils (%) (Auto) 3% (0-3) 4% (0-3) Basophils (%) (Auto) 3% (0-3) 2% (0-3) Neutrophils # (Auto) 1.9x10^3uL (1.8-7.7) 1.7x10^3uL (1.8-7.7) Lymphocytes # (Auto) 1.3x10^3/uL (1.0-4.8) 1.3x10^3/uL (1.0-4.8) Monocytes # (Auto) 0.4x10^3/uL (0.0-1.1) 0.4x10^3/uL (0.0-1.1) Eosinophils # (Auto) 0.1x10^3/uL (0.0-0.7) 0.1x10^3/uL (0.0-0.7) Basophils # (Auto) 0.1x10^3/uL (0.0-0.2) 0.1x10^3/uL (0.0-0.2) Prothrombin Time 14.2SEC (11.7-14.0) Prothromb Time International Ratio 1.2 (0.8-1.1) Sodium Level 143mmol/L (136-145) 139mmol/L (136-145) Potassium Level 3.4mmol/L (3.5-5.1) 4.2mmol/L (3.5-5.1) Chloride Level 107mmol/L (98-107) 104mmol/L (98-107) Carbon Dioxide Level 27mmol/L (21-32) 26mmol/L (21-32) Anion Gap 9 (6-14) 9 (6-14) Blood Urea Nitrogen 18mg/dL (7-20) 19mg/dL (7-20) Creatinine 0.6mg/dL (0.6-1.0) 0.5mg/dL (0.6-1.0) Estimated GFR (Cockcroft-Gault) 123.0 151.8 BUN/Creatinine Ratio 30 (6-20) Glucose Level 88mg/dL (70-99) 92mg/dL (70-99) Calcium Level 9.2mg/dL (8.5-10.1) 8.9mg/dL (8.5-10.1) Phosphorus Level 5.1mg/dL (2.6-4.7) 4.2mg/dL (2.6-4.7) Magnesium Level 1.7mg/dL (1.8-2.4) 1.8mg/dL (1.8-2.4) Total Bilirubin 2.5mg/dL (0.2-1.0) 2.2mg/dL (0.2-1.0) Aspartate Amino Transf (AST/SGOT) 144U/L (15-37) 121U/L (15-37) Alanine Aminotransferase (ALT/SGPT) 128U/L (14-59) 120U/L (14-59) Alkaline Phosphatase 910U/L (46-116) 825U/L (46-116) Total Protein 7.7g/dL (6.4-8.2) 8.0g/dL (6.4-8.2) Albumin 2.7g/dL (3.4-5.0) 2.8g/dL (3.4-5.0) Albumin/Globulin Ratio 0.5 (1.0-1.7) Triglycerides Level 45mg/dL (0-150) Direct Bilirubin 1.5mg/dL (0.0-0.2) Laboratory Tests Test 4/1/17 06:40 White Blood Count 3.6x10^3/uL (4.0-11.0) Red Blood Count 4.09x10^6/uL (3.50-5.40) Hemoglobin 10.6g/dL (12.0-15.5) Hematocrit 33.3% (36.0-47.0) Mean Corpuscular Volume 82fL (79-100) Mean Corpuscular Hemoglobin 26pg (25-35) Mean Corpuscular Hemoglobin Concent 32g/dL (31-37) Red Cell Distribution Width 21.1% (11.5-14.5) Platelet Count 339x10^3/uL (140-400) Neutrophils (%) (Auto) 48% (31-73) Lymphocytes (%) (Auto) 36% (24-48) Monocytes (%) (Auto) 10% (0-9) Eosinophils (%) (Auto) 4% (0-3) Basophils (%) (Auto) 2% (0-3) Neutrophils # (Auto) 1.7x10^3uL (1.8-7.7) Lymphocytes # (Auto) 1.3x10^3/uL (1.0-4.8) Monocytes # (Auto) 0.4x10^3/uL (0.0-1.1) Eosinophils # (Auto) 0.1x10^3/uL (0.0-0.7) Basophils # (Auto) 0.1x10^3/uL (0.0-0.2) Sodium Level 139mmol/L (136-145) Potassium Level 4.2mmol/L (3.5-5.1) Chloride Level 104mmol/L (98-107) Carbon Dioxide Level 26mmol/L (21-32) Anion Gap 9 (6-14) Blood Urea Nitrogen 19mg/dL (7-20) Creatinine 0.5mg/dL (0.6-1.0) Estimated GFR (Cockcroft-Gault) 151.8 Glucose Level 92mg/dL (70-99) Calcium Level 8.9mg/dL (8.5-10.1) Phosphorus Level 4.2mg/dL (2.6-4.7) Magnesium Level 1.8mg/dL (1.8-2.4) Total Bilirubin 2.2mg/dL (0.2-1.0) Direct Bilirubin 1.5mg/dL (0.0-0.2) Aspartate Amino Transf (AST/SGOT) 121U/L (15-37) Alanine Aminotransferase (ALT/SGPT) 120U/L (14-59) Alkaline Phosphatase 825U/L (46-116) Total Protein 8.0g/dL (6.4-8.2) Albumin 2.8g/dL (3.4-5.0) Microbiology 09/10/16 Urine Culture - Preliminary, Resulted 09/10/16 Urine Culture Result 1 (ROYA) - Preliminary, Resulted Medications Current Medications Ondansetron HCl (Zofran) 4 mg STK-MED ONCE .ROUTE ; Start 09/10/16 at 08:18; Stop 09/10/16 at 08:19; Status DC Hydromorphone HCl 2 mg 2 mg STK-MED ONCE .ROUTE ; Start 09/10/16 at 08:18; Stop 09/10/16 at 08:19; Status DC Sodium Chloride (Iv Sodium Chloride 0.9% 1000ml Bag) 1,000 ml @ 1,000 mls/hr 1X ONCE IV Last administered on 09/10/16 08:33; Start 09/10/16 at 08:30; Stop 09/10/16 at 09:29; Status DC Ondansetron HCl (Zofran) 4 mg 1X ONCE IV ; Start 09/10/16 at 08:30; Stop at 08:30; Status DC Hydromorphone HCl (Dilaudid) 1 mg PRN Q15MIN PRN IV/SQ PAIN GREATER THAN 3/10 Last administered on 09/10/16 10:40; Start 09/10/16 at 08:30; Stop 09/11/16 at 08:29; Status DC Ondansetron HCl (Zofran) 4 mg ONCE ONCE IV Last administered on 09/10/16 08: 31; Start 09/10/16 at 08:30; Stop 09/10/16 at 08:31; Status DC Info 1 each PRN DAILY PRN MC SEE COMMENTS Last administered on 09/11/16 11:42 ; Start 09/10/16 at 10:30 Ondansetron HCl (Zofran) 4 mg Q6HRS IV ; Start 09/10/16 at 12:00; Stop 09/11/16 at 11:59; Status DC Hydromorphone HCl 1 mg 1 mg PRN Q4HRS PRN IV PAIN; Start 09/10/16 at 10:30; Stop 09/10/16 at 12:06; Status DC Dextrose/Sodium Chloride (Iv D5% - NS) 1,000 ml @ 80 mls/hr 1X ONCE IV Last administered on 09/10/16 12:29; Start 09/10/16 at 10:30; Stop 09/11/16 at 10:48 ; Status DC Hydralazine HCl 10 mg 10 mg PRN Q4HRS PRN IVP ELEVATED BP, SEE COMMENTS Last administered on 09/10/16 12:34; Start 09/10/16 at 10:45 Sodium Chloride/ Sodium Acetate/ Potassium Chloride/ Magnesium Sulfate/ Multivitamins/ Chromium/Copper/ Manganese/Seleni/ Zn/Total Parenteral Nutrition/ Amino Acids/Dextrose/ Fat Emulsion Intravenous (Sodium Chloride/ Infuvite Adult / Multitrace-5 Conc/ Tpn - Tpn Fluid/ Dextr... 1,920 ml @ 80 mls/hr TPN CONT IV Last administered on 09/11/16 10:45; Start 09/10/16 at 22:00; Stop at 21:59; Status DC Hydromorphone HCl (Dilaudid) 2 mg PRN Q4HRS PRN IV PAIN Last administered on 06:14; Start 09/10/16 at 12:00 Pantoprazole Sodium (Protonix Vial) 40 mg DAILYAC IVP Last administered on 09/10 14:05; Start 09/10/16 at 13:00; Stop 09/11/16 at 06:17; Status DC Amlodipine Besylate (Norvasc) 5 mg DAILY PO Last administered on 09/11/16 09: 56; Start 09/10/16 at 13:00 Sertraline HCl (Zoloft) 50 mg DAILY PO Last administered on 09/11/16 09:56; Start 09/11/16 at 09:00 Ondansetron HCl (Zofran) 4 mg Q6HRS IV Last administered on 09/12/16 10:57; Start 09/10/16 at 12:00 Acetaminophen 650 mg 650 mg Q4HRS PRN PO MILD PAIN / TEMP; Start 09/10/16 at 12 :00 Potassium Chloride/Dextrose/ Sodium Chloride (Iv D5% - 1/2 NS) 1,015 ml @ 125 mls/hr Q8H8M IV Last administered on 09/11/16 05:41; Start 09/10/16 at 12:00; Stop 09/10/16 at 21:59; Status DC Zolpidem Tartrate (Ambien) 5 mg PRN QHS PRN PO INSOMNIA; Start 09/10/16 at 12: 30 Lorazepam 0.5 mg 0.5 mg PRN Q6HRS PRN PO ANXIETY / AGITATION; Start 09/10/16 at 12:30 Potassium Chloride/Dextrose/ Sod Cl (KCl 20 Meq In D5W-1/2 NS) 1,000 ml @ 125 mls/hr Q8H IV ; Start 09/10/16 at 12:30; Status UNV Hydromorphone HCl (Dilaudid) 4 mg PRN Q4HRS PRN IV PAIN SEVERE Last administered on 09/12/16 10:57; Start 09/10/16 at 13:30 Pantoprazole Sodium 40 mg 40 mg DAILYAC IVP Last administered on 09/12/16 08:27 ; Start 09/11/16 at 07:30 Magnesium Sulfate/ Dextrose (Magnesium Sulfate PREMIX 2GM) 50 ml @ 25 mls/hr 1X ONCE IV Last administered on 09/11/16 09:40; Start 09/11/16 at 09:15; Stop 09/11/16 at 11:14; Status DC Potassium Chloride 20 meq 20 meq 1X ONCE PO Last administered on 09/11/16 09: 56; Start 09/11/16 at 09:15; Stop 09/11/16 at 09:21; Status DC Sodium Chloride/ Potassium Chloride/ Magnesium Sulfate/ Multivitamins/ Chromium/ Copper/ Manganese/Seleni/ Zn/Sodium Acetate/ Total Parenteral Nutrition/Amino Acids/Dextrose/ Fat Emulsion Intravenous (Sodium Chloride/ Infuvite Adult/ Multitrace-5 Conc/ Tpn - Tpn Fluid/ Dextrose 70%-Water Iv So... 1,920 ml @ 80 mls/hr TPN CONT IV Last administered on 09/11/16t 21:20; Start 09/11/16 at 22: 00; Stop 09/12/16 at 21:59 Active Scripts Active Anaspaz (Hyoscyamine Sulfate) 0.125 Mg Tab.rapdis 0.125 Mg PO Q6HRS PRN Sertraline Hcl 50 Mg Tablet 100 Mg PO DAILY 30 Days Protonix (Pantoprazole Sodium) 40 Mg Tablet.dr 1 Tab PO DAILY Zinc Oxide 56.7 Gm Oint...g. 1 Sang TP BID Lidocaine 35.44 Gm Oint...g. 1 Sang TP BID Reported Famotidine 20 Mg Tablet 20 Mg PO DAILY Amlodipine Besylate 5 Mg Tablet 5 Mg PO DAILY Acetaminophen Supp (Acetaminophen) 650 Mg Supp.rect 650 Mg RC Q4HRS Ondansetron HCl 4 mg/2 ml Syr (Ondansetron HCl/Pf) 4 Mg/2 Ml Syringe 8 Mg IJ Q8HRS PRN Lorazepam 0.5 Mg Tablet 0.5 Mg PO Q6HRS PRN Hydromorphone 2 Mg/Ml Syringe (Hydromorphone Hcl) 2 Mg/1 Ml Disp.syrin 2 Mg IJ Q4HRS PRN Melatonin 3 Mg Tablet (Melatonin/Pyridoxine) 1 Each Tablet 1 Each PO QHS Virt-Caps Softgel (B Complex & C No.20/Folic Acid) 1 Mg Capsule 1 Mg PO DAILY Aranesp Syringe (Darbepoetin Sarbjit In Polysorbat) 60 Mcg/0.3 Ml Disp.syrin 60 Mcg SQ WEEKLY Vitals/I & O Vital Sign - Last 24 Hours 09/11/16 09/11/16 09/11/16 09/11/16 14:17 14:47 15:00 18:29 Temp 97.8 97.8 Pulse 71 Resp 18 16 16 18 B/P 124/74 Pulse Ox 97 97 97 97 O2 Delivery Room Air Room Air Room Air Room Air 09/11/16 09/11/16 09/11/16 09/12/16 19:00 20:00 23:00 03:00 Temp 97.9 97.9 98.1 97.9 97.9 98.1 Pulse 64 80 74 Resp 18 17 18 B/P 156/58 197/71 166/75 Pulse Ox 96 100 100 O2 Delivery Room Air Room Air Room Air Room Air 09/12/16 09/12/16 09/12/16 07:33 08:00 10:57 Temp 97.7 97.7 Pulse 80 Resp 18 16 B/P 167/68 Pulse Ox 97 O2 Delivery Room Air Room Air Room Air Intake and Output 09/11/16 09/11/16 09/12/16 14:59 22:59 06:59 Intake Total 0 ml 0 ml Balance 0 ml 0 ml BENITA LUTZ MD Sep 12, 2016 11:08
[2016-09-12] MEDS: TPN PER PHARMACY MC PRN (12:59)
[2016-09-12] MEDS ORDERED: LORAZEPAM 0.5 MG TABLET. PO PRN (13:55)
[2016-09-12] MEDS: hydrALAZINE 20 MG/ML VIAL. IVP PRN (16:08)
[2016-09-12] MEDS: DIPHENHYDRAMINE HCL 25 MG CAPSULE PO PRN (20:10)
[2016-09-12] MEDS ORDERED: DEXTROSE 70% IV SCH ×9 (22:00)
[2016-09-12] MEDS ORDERED: [UNRECOGNIZED DRUG - OTHER] IV SCH ×9 (22:00)
[2016-09-12] MEDS ORDERED: TOTAL PARENTERAL NUTRITION IV SCH ×9 (22:00)
[2016-09-12] MEDS ORDERED: AMINO ACID IV SCH ×9 (22:00)
[2016-09-13] VITALS (7 sets, daily range): BP systolic 110–177; BP diastolic 55–86
[2016-09-13] MEDS: ONDANSETRON PF 4 MG/2 ML VIAL. IV SCH ×5 (00:23→23:12)
[2016-09-13] MEDS: HYDROMORPHONE 2 MG/ML VIAL. IV PRN ×7 (00:23→20:34)
[2016-09-13 05:17] LABS: ALBUMIN 2.9 g/dL (3.4-5.0); CALCIUM 9.5 mg/dL (8.5-10.1); CREATININE 0.6 mg/dL (0.6-1.0); DIRECT BILIRUBIN 1.4 mg/dL (0.0-0.2); MAGNESIUM 2.1 mg/dL (1.8-2.4); PHOSPHORUS 3.9 mg/dL (2.6-4.7); TOTAL BILIRUBIN 2.1 mg/dL (0.2-1.0); TOTAL PROTEIN 8.2 g/dL (6.4-8.2)
[2016-09-13] MEDS: hydrALAZINE 20 MG/ML VIAL. IVP PRN ×2 (06:13→23:15)
[2016-09-13] MEDS: PANTOPRAZOLE IV PUSH 40 MG VIAL. IVP SCH (08:52)
[2016-09-13] MEDS: SERTRALINE 50 MG TABLET. PO SCH (08:52)
[2016-09-13] MEDS: AMLODIPINE BESYLATE 10 MG TABLET. PO SCH (08:52)
--- NOTE | 2016-09-13 09:01 | PDOC ---
G I PROGRESS NOTE Subjective Thinks may be at baseline pain-garcia. No other complaints. Physical Exam Lungs clear. RRR Abdomen soft with fistulae and non-specific tenderness. Review of Relevant I have reviewed the following items lucila (where applicable) has been applied. Labs Laboratory Tests Test 09/12/16 06:40 09/13/16 04:30 White Blood Count 3.6x10^3/uL (4.0-11.0) Red Blood Count 4.09x10^6/uL (3.50-5.40) Hemoglobin 10.6g/dL (12.0-15.5) Hematocrit 33.3% (36.0-47.0) Mean Corpuscular Volume 82fL (79-100) Mean Corpuscular Hemoglobin 26pg (25-35) Mean Corpuscular Hemoglobin Concent 32g/dL (31-37) Red Cell Distribution Width 21.1% (11.5-14.5) Platelet Count 339x10^3/uL (140-400) Neutrophils (%) (Auto) 48% (31-73) Lymphocytes (%) (Auto) 36% (24-48) Monocytes (%) (Auto) 10% (0-9) Eosinophils (%) (Auto) 4% (0-3) Basophils (%) (Auto) 2% (0-3) Neutrophils # (Auto) 1.7x10^3uL (1.8-7.7) Lymphocytes # (Auto) 1.3x10^3/uL (1.0-4.8) Monocytes # (Auto) 0.4x10^3/uL (0.0-1.1) Eosinophils # (Auto) 0.1x10^3/uL (0.0-0.7) Basophils # (Auto) 0.1x10^3/uL (0.0-0.2) Sodium Level 139mmol/L (136-145) 139mmol/L (136-145) Potassium Level 4.2mmol/L (3.5-5.1) 4.0mmol/L (3.5-5.1) Chloride Level 104mmol/L (98-107) 105mmol/L (98-107) Carbon Dioxide Level 26mmol/L (21-32) 27mmol/L (21-32) Anion Gap 9 (6-14) 7 (6-14) Blood Urea Nitrogen 19mg/dL (7-20) 27mg/dL (7-20) Creatinine 0.5mg/dL (0.6-1.0) 0.6mg/dL (0.6-1.0) Estimated GFR (Cockcroft-Gault) 151.8 123.0 Glucose Level 92mg/dL (70-99) 115mg/dL (70-99) Calcium Level 8.9mg/dL (8.5-10.1) 9.5mg/dL (8.5-10.1) Phosphorus Level 4.2mg/dL (2.6-4.7) 3.9mg/dL (2.6-4.7) Magnesium Level 1.8mg/dL (1.8-2.4) 2.1mg/dL (1.8-2.4) Total Bilirubin 2.2mg/dL (0.2-1.0) 2.1mg/dL (0.2-1.0) Direct Bilirubin 1.5mg/dL (0.0-0.2) 1.4mg/dL (0.0-0.2) Aspartate Amino Transf (AST/SGOT) 121U/L (15-37) 126U/L (15-37) Alanine Aminotransferase (ALT/SGPT) 120U/L (14-59) 119U/L (14-59) Alkaline Phosphatase 825U/L (46-116) 834U/L (46-116) Total Protein 8.0g/dL (6.4-8.2) 8.2g/dL (6.4-8.2) Albumin 2.8g/dL (3.4-5.0) 2.9g/dL (3.4-5.0) Laboratory Tests Test 09/13/16 04:30 Sodium Level 139mmol/L (136-145) Potassium Level 4.0mmol/L (3.5-5.1) Chloride Level 105mmol/L (98-107) Carbon Dioxide Level 27mmol/L (21-32) Anion Gap 7 (6-14) Blood Urea Nitrogen 27mg/dL (7-20) Creatinine 0.6mg/dL (0.6-1.0) Estimated GFR (Cockcroft-Gault) 123.0 Glucose Level 115mg/dL (70-99) Calcium Level 9.5mg/dL (8.5-10.1) Phosphorus Level 3.9mg/dL (2.6-4.7) Magnesium Level 2.1mg/dL (1.8-2.4) Total Bilirubin 2.1mg/dL (0.2-1.0) Direct Bilirubin 1.4mg/dL (0.0-0.2) Aspartate Amino Transf (AST/SGOT) 126U/L (15-37) Alanine Aminotransferase (ALT/SGPT) 119U/L (14-59) Alkaline Phosphatase 834U/L (46-116) Total Protein 8.2g/dL (6.4-8.2) Albumin 2.9g/dL (3.4-5.0) Microbiology 09/10/16 Urine Culture - Final, Complete 09/10/16 Urine Culture Result 1 (ROYA) - Final, Complete 09/10/16 Antimicrobic Susceptibility - Final, Complete Enterobacter UTI. LFT's slowly better. Medications Current Medications Ondansetron HCl (Zofran) 4 mg STK-MED ONCE .ROUTE ; Start 09/10/16 at 08:18; Stop 09/10/16 at 08:19; Status DC Hydromorphone HCl 2 mg 2 mg STK-MED ONCE .ROUTE ; Start 09/10/16 at 08:18; Stop 09/10/16 at 08:19; Status DC Sodium Chloride (Iv Sodium Chloride 0.9% 1000ml Bag) 1,000 ml @ 1,000 mls/hr 1X ONCE IV Last administered on 09/10/16 08:33; Start 09/10/16 at 08:30; Stop 09/10/16 at 09:29; Status DC Ondansetron HCl (Zofran) 4 mg 1X ONCE IV ; Start 09/10/16 at 08:30; Stop at 08:30; Status DC Hydromorphone HCl (Dilaudid) 1 mg PRN Q15MIN PRN IV/SQ PAIN GREATER THAN 3/10 Last administered on 09/10/16 10:40; Start 09/10/16 at 08:30; Stop 09/11/16 at 08:29; Status DC Ondansetron HCl (Zofran) 4 mg ONCE ONCE IV Last administered on 09/10/16 08: 31; Start 09/10/16 at 08:30; Stop 09/10/16 at 08:31; Status DC Info 1 each PRN DAILY PRN MC SEE COMMENTS Last administered on 09/12/16 12:59; Start 09/10/16 at 10:30 Ondansetron HCl (Zofran) 4 mg Q6HRS IV ; Start 09/10/16 at 12:00; Stop 09/11/16 at 11:59; Status DC Hydromorphone HCl 1 mg 1 mg PRN Q4HRS PRN IV PAIN; Start 09/10/16 at 10:30; Stop 09/10/16 at 12:06; Status DC Dextrose/Sodium Chloride (Iv D5% - NS) 1,000 ml @ 80 mls/hr 1X ONCE IV Last administered on 09/10/16 12:29; Start 09/10/16 at 10:30; Stop 09/11/16 at 10:48 ; Status DC Hydralazine HCl 10 mg 10 mg PRN Q4HRS PRN IVP ELEVATED BP, SEE COMMENTS Last administered on 09/13/16 06:13; Start 09/10/16 at 10:45 Sodium Chloride/ Sodium Acetate/ Potassium Chloride/ Magnesium Sulfate/ Multivitamins/ Chromium/Copper/ Manganese/Seleni/ Zn/Total Parenteral Nutrition/ Amino Acids/Dextrose/ Fat Emulsion Intravenous (Sodium Chloride/ Infuvite Adult / Multitrace-5 Conc/ Tpn - Tpn Fluid/ Dextr... 1,920 ml @ 80 mls/hr TPN CONT IV Last administered on 09/11/16 10:45; Start 09/10/16 at 22:00; Stop at 21:59; Status DC Hydromorphone HCl (Dilaudid) 2 mg PRN Q4HRS PRN IV PAIN Last administered on 08:53; Start 09/10/16 at 12:00 Pantoprazole Sodium (Protonix Vial) 40 mg DAILYAC IVP Last administered on 09/10 14:05; Start 09/10/16 at 13:00; Stop 09/11/16 at 06:17; Status DC Amlodipine Besylate (Norvasc) 5 mg DAILY PO Last administered on 09/11/16 09: 56; Start 09/10/16 at 13:00; Stop 09/12/16 at 11:04; Status DC Sertraline HCl (Zoloft) 50 mg DAILY PO Last administered on 09/13/16 08:52; Start 09/11/16 at 09:00 Ondansetron HCl (Zofran) 4 mg Q6HRS IV Last administered on 09/13/16 06:07; Start 09/10/16 at 12:00 Acetaminophen 650 mg 650 mg Q4HRS PRN PO MILD PAIN / TEMP; Start 09/10/16 at 12 :00 Potassium Chloride/Dextrose/ Sodium Chloride (Iv D5% - 1/2 NS) 1,015 ml @ 125 mls/hr Q8H8M IV Last administered on 09/11/16 05:41; Start 09/10/16 at 12:00; Stop 09/10/16 at 21:59; Status DC Zolpidem Tartrate (Ambien) 5 mg PRN QHS PRN PO INSOMNIA; Start 09/10/16 at 12: 30 Lorazepam 0.5 mg 0.5 mg PRN Q6HRS PRN PO ANXIETY / AGITATION; Start 09/10/16 at 12:30; Stop 09/12/16 at 13:55; Status DC Potassium Chloride/Dextrose/ Sod Cl (KCl 20 Meq In D5W-1/2 NS) 1,000 ml @ 125 mls/hr Q8H IV ; Start 09/10/16 at 12:30; Status UNV Hydromorphone HCl (Dilaudid) 4 mg PRN Q4HRS PRN IV PAIN SEVERE Last administered on 09/13/16 04:24; Start 09/10/16 at 13:30 Pantoprazole Sodium 40 mg 40 mg DAILYAC IVP Last administered on 09/13/16 08:52 ; Start 09/11/16 at 07:30 Magnesium Sulfate/ Dextrose (Magnesium Sulfate PREMIX 2GM) 50 ml @ 25 mls/hr 1X ONCE IV Last administered on 09/11/16 09:40; Start 09/11/16 at 09:15; Stop 09/11/16 at 11:14; Status DC Potassium Chloride 20 meq 20 meq 1X ONCE PO Last administered on 09/11/16 09: 56; Start 09/11/16 at 09:15; Stop 09/11/16 at 09:21; Status DC Sodium Chloride/ Potassium Chloride/ Magnesium Sulfate/ Multivitamins/ Chromium/ Copper/ Manganese/Seleni/ Zn/Sodium Acetate/ Total Parenteral Nutrition/Amino Acids/Dextrose/ Fat Emulsion Intravenous (Sodium Chloride/ Infuvite Adult/ Multitrace-5 Conc/ Tpn - Tpn Fluid/ Dextrose 70%-Water Iv So... 1,920 ml @ 80 mls/hr TPN CONT IV Last administered on 09/11/16 21:20; Start 09/11/16 at 22: 00; Stop 09/12/16 at 21:59; Status DC Amlodipine Besylate 10 mg 10 mg DAILY PO Last administered on 09/13/16 08:52; Start 09/13/16 at 09:00 Sodium Chloride/ Potassium Chloride/ Magnesium Sulfate/ Multivitamins/ Chromium/ Copper/ Manganese/Seleni/ Zn/Sodium Acetate/ Total Parenteral Nutrition/Amino Acids/Dextrose/ Fat Emulsion Intravenous (Sodium Chloride/ Infuvite Adult/ Multitrace-5 Conc/ Tpn - Tpn Fluid/ Dextrose 70%-Water Iv So... 1,920 ml @ 80 mls/hr TPN CONT IV Last administered on 09/12/16 22:12; Start 09/12/16 at 22:00 ; Stop 09/13/16 at 21:59 Lorazepam (Ativan) 0.5 mg PRN Q6HRS PRN PO ANXIETY / AGITATION; Start 09/12/16 at 13:55 Diphenhydramine HCl (Benadryl) 25 mg PRN Q6HRS PRN PO ITCHING Last administered on 09/12/16 20:10; Start 09/12/16 at 19:45 Active Scripts Active Anaspaz (Hyoscyamine Sulfate) 0.125 Mg Tab.rapdis 0.125 Mg PO Q6HRS PRN Sertraline Hcl 50 Mg Tablet 100 Mg PO DAILY 30 Days Protonix (Pantoprazole Sodium) 40 Mg Tablet.dr 1 Tab PO DAILY Zinc Oxide 56.7 Gm Oint...g. 1 Sang TP BID Lidocaine 35.44 Gm Oint...g. 1 Sang TP BID Reported Famotidine 20 Mg Tablet 20 Mg PO DAILY Amlodipine Besylate 5 Mg Tablet 5 Mg PO DAILY Acetaminophen Supp (Acetaminophen) 650 Mg Supp.rect 650 Mg RC Q4HRS Ondansetron HCl 4 mg/2 ml Syr (Ondansetron HCl/Pf) 4 Mg/2 Ml Syringe 8 Mg IJ Q8HRS PRN Lorazepam 0.5 Mg Tablet 0.5 Mg PO Q6HRS PRN Hydromorphone 2 Mg/Ml Syringe (Hydromorphone Hcl) 2 Mg/1 Ml Disp.syrin 2 Mg IJ Q4HRS PRN Melatonin 3 Mg Tablet (Melatonin/Pyridoxine) 1 Each Tablet 1 Each PO QHS Virt-Caps Softgel (B Complex & C No.20/Folic Acid) 1 Mg Capsule 1 Mg PO DAILY Aranesp Syringe (Darbepoetin Sarbjit In Polysorbat) 60 Mcg/0.3 Ml Disp.syrin 60 Mcg SQ WEEKLY Vitals/I & O Vital Sign - Last 24 Hours 09/12/16 09/12/16 09/12/16 09/12/16 10:57 11:26 15:43 16:07 Temp 97.7 97.9 97.7 97.9 Pulse 78 79 Resp 16 18 18 16 B/P 149/69 188/83 Pulse Ox 100 100 O2 Delivery Room Air Room Air Room Air Room Air 09/12/16 09/12/16 09/12/16 09/12/16 16:08 16:32 19:00 20:00 Temp 97.7 97.7 Pulse 88 97 Resp 16 16 B/P 175/85 150/84 Pulse Ox 98 O2 Delivery Room Air Room Air Room Air 09/12/16 09/12/16 09/13/16 09/13/16 23:00 23:48 03:00 06:10 Temp 97.3 97.3 97.6 97.3 97.3 97.6 Pulse 96 96 98 82 Resp 20 20 20 B/P 151/86 151/86 177/55 167/71 Pulse Ox 98 98 98 O2 Delivery Room Air Room Air Room Air 09/13/16 09/13/16 09/13/16 09/13/16 06:13 07:33 07:39 08:52 Temp 97.7 97.7 Pulse 82 105 105 Resp 20 B/P 167/71 110/62 110/62 Pulse Ox 100 O2 Delivery Room Air Room Air 09/13/16 08:53 Resp 17 O2 Delivery Room Air Intake and Output 09/12/16 09/12/16 09/13/16 14:59 22:59 06:59 Intake Total 0 ml 0 ml Balance 0 ml 0 ml Problem List Problems Medical Problems: (1) Abdominal pain Status: Acute (2) Accelerated hypertension Status: Acute (3) Enterocutaneous fistula Status: Acute (4) Generalized weakness Status: Acute (5) Hematemesis Status: Acute (6) Nausea and vomiting Status: Acute Assessment Pain better as are LFT"s. Chronic UTI. Plan of Care: Continue current Tx, Mgmt Plan of Care Note Watchful waiting re: LFT's. BENITA CALVILLO MD Sep 13, 2016 09:01
--- NOTE | 2016-09-13 11:33 | PDOC ---
PROGRESS NOTES Subjective Subjective no further vomiting. discussed with dr. simon. urine culture grew enterobacter sensitive to cefriaxone. lab reviewed. LFT stable Objective Objective Vital Signs Date Time Temp Pulse Resp B/P Pulse Ox O2 Delivery O2 Flow Rate FiO2 09/13/16 11:23 16 Room Air 09/13/16 11:15 97.4 87 126/59 98 97.4 Intake and Output 09/13/16 06:59 Intake Total 0 ml Balance 0 ml Intake Oral 0 ml # Voids 8 Physical Exam Abdomen: Soft, Other (enterocutaneous fistula) Heart: Regular rate, Normal S1, Normal S2 Extremities: No edema General: Alert HEENT: Atraumatic Lungs: Clear to auscultation Neuro: Normal speech Psych/Mental Status: Mental status NL Skin: No rashes Assessment Assessment Problems Medical Problems:. Recurrent vomiting. controlled 2. Elevated liver function tests. stable 3. Enterocutaneous fistula. 4. Enterovesical fistula. 5. Hypertension. 6. Depression. hypokalemia resolved hypomagnesemia resolved common bile duct kink on MRCP without high grade obstruction Enterobacter uti (1) Abdominal pain Status: Acute (2) Accelerated hypertension Status: Acute (3) Enterocutaneous fistula Status: Acute (4) Generalized weakness Status: Acute (5) Hematemesis Status: Acute (6) Nausea and vomiting Status: Acute Plan Plan of Care start iv rocephin continue iv zofran continue TPN continue analgesics prn continue amlodipine Comment Review of Relevant I have reviewed the following items lucila (where applicable) has been applied. Labs Laboratory Tests Test 09/12/16 06:40 09/13/16 04:30 White Blood Count 3.6x10^3/uL (4.0-11.0) Red Blood Count 4.09x10^6/uL (3.50-5.40) Hemoglobin 10.6g/dL (12.0-15.5) Hematocrit 33.3% (36.0-47.0) Mean Corpuscular Volume 82fL (79-100) Mean Corpuscular Hemoglobin 26pg (25-35) Mean Corpuscular Hemoglobin Concent 32g/dL (31-37) Red Cell Distribution Width 21.1% (11.5-14.5) Platelet Count 339x10^3/uL (140-400) Neutrophils (%) (Auto) 48% (31-73) Lymphocytes (%) (Auto) 36% (24-48) Monocytes (%) (Auto) 10% (0-9) Eosinophils (%) (Auto) 4% (0-3) Basophils (%) (Auto) 2% (0-3) Neutrophils # (Auto) 1.7x10^3uL (1.8-7.7) Lymphocytes # (Auto) 1.3x10^3/uL (1.0-4.8) Monocytes # (Auto) 0.4x10^3/uL (0.0-1.1) Eosinophils # (Auto) 0.1x10^3/uL (0.0-0.7) Basophils # (Auto) 0.1x10^3/uL (0.0-0.2) Sodium Level 139mmol/L (136-145) 139mmol/L (136-145) Potassium Level 4.2mmol/L (3.5-5.1) 4.0mmol/L (3.5-5.1) Chloride Level 104mmol/L (98-107) 105mmol/L (98-107) Carbon Dioxide Level 26mmol/L (21-32) 27mmol/L (21-32) Anion Gap 9 (6-14) 7 (6-14) Blood Urea Nitrogen 19mg/dL (7-20) 27mg/dL (7-20) Creatinine 0.5mg/dL (0.6-1.0) 0.6mg/dL (0.6-1.0) Estimated GFR (Cockcroft-Gault) 151.8 123.0 Glucose Level 92mg/dL (70-99) 115mg/dL (70-99) Calcium Level 8.9mg/dL (8.5-10.1) 9.5mg/dL (8.5-10.1) Phosphorus Level 4.2mg/dL (2.6-4.7) 3.9mg/dL (2.6-4.7) Magnesium Level 1.8mg/dL (1.8-2.4) 2.1mg/dL (1.8-2.4) Total Bilirubin 2.2mg/dL (0.2-1.0) 2.1mg/dL (0.2-1.0) Direct Bilirubin 1.5mg/dL (0.0-0.2) 1.4mg/dL (0.0-0.2) Aspartate Amino Transf (AST/SGOT) 121U/L (15-37) 126U/L (15-37) Alanine Aminotransferase (ALT/SGPT) 120U/L (14-59) 119U/L (14-59) Alkaline Phosphatase 825U/L (46-116) 834U/L (46-116) Total Protein 8.0g/dL (6.4-8.2) 8.2g/dL (6.4-8.2) Albumin 2.8g/dL (3.4-5.0) 2.9g/dL (3.4-5.0) Laboratory Tests Test 09/13/16 04:30 Sodium Level 139mmol/L (136-145) Potassium Level 4.0mmol/L (3.5-5.1) Chloride Level 105mmol/L (98-107) Carbon Dioxide Level 27mmol/L (21-32) Anion Gap 7 (6-14) Blood Urea Nitrogen 27mg/dL (7-20) Creatinine 0.6mg/dL (0.6-1.0) Estimated GFR (Cockcroft-Gault) 123.0 Glucose Level 115mg/dL (70-99) Calcium Level 9.5mg/dL (8.5-10.1) Phosphorus Level 3.9mg/dL (2.6-4.7) Magnesium Level 2.1mg/dL (1.8-2.4) Total Bilirubin 2.1mg/dL (0.2-1.0) Direct Bilirubin 1.4mg/dL (0.0-0.2) Aspartate Amino Transf (AST/SGOT) 126U/L (15-37) Alanine Aminotransferase (ALT/SGPT) 119U/L (14-59) Alkaline Phosphatase 834U/L (46-116) Total Protein 8.2g/dL (6.4-8.2) Albumin 2.9g/dL (3.4-5.0) Microbiology 09/10/16 Urine Culture - Final, Complete 09/10/16 Urine Culture Result 1 (ROYA) - Final, Complete 09/10/16 Antimicrobic Susceptibility - Final, Complete Medications Current Medications Ondansetron HCl (Zofran) 4 mg STK-MED ONCE .ROUTE ; Start 09/10/16 at 08:18; Stop 09/10/16 at 08:19; Status DC Hydromorphone HCl 2 mg 2 mg STK-MED ONCE .ROUTE ; Start 09/10/16 at 08:18; Stop 09/10/16 at 08:19; Status DC Sodium Chloride (Iv Sodium Chloride 0.9% 1000ml Bag) 1,000 ml @ 1,000 mls/hr 1X ONCE IV Last administered on 09/10/16 08:33; Start 09/10/16 at 08:30; Stop 09/10/16 at 09:29; Status DC Ondansetron HCl (Zofran) 4 mg 1X ONCE IV ; Start 09/10/16 at 08:30; Stop at 08:30; Status DC Hydromorphone HCl (Dilaudid) 1 mg PRN Q15MIN PRN IV/SQ PAIN GREATER THAN 3/10 Last administered on 09/10/16 10:40; Start 09/10/16 at 08:30; Stop 09/11/16 at 08:29; Status DC Ondansetron HCl (Zofran) 4 mg ONCE ONCE IV Last administered on 09/10/16 08: 31; Start 09/10/16 at 08:30; Stop 09/10/16 at 08:31; Status DC Info 1 each PRN DAILY PRN MC SEE COMMENTS Last administered on 09/12/16 12:59; Start 09/10/16 at 10:30 Ondansetron HCl (Zofran) 4 mg Q6HRS IV ; Start 09/10/16 at 12:00; Stop 09/11/16 at 11:59; Status DC Hydromorphone HCl 1 mg 1 mg PRN Q4HRS PRN IV PAIN; Start 09/10/16 at 10:30; Stop 09/10/16 at 12:06; Status DC Dextrose/Sodium Chloride (Iv D5% - NS) 1,000 ml @ 80 mls/hr 1X ONCE IV Last administered on 09/10/16 12:29; Start 09/10/16 at 10:30; Stop 09/11/16 at 10:48 ; Status DC Hydralazine HCl 10 mg 10 mg PRN Q4HRS PRN IVP ELEVATED BP, SEE COMMENTS Last administered on 09/13/16 06:13; Start 09/10/16 at 10:45 Sodium Chloride/ Sodium Acetate/ Potassium Chloride/ Magnesium Sulfate/ Multivitamins/ Chromium/Copper/ Manganese/Seleni/ Zn/Total Parenteral Nutrition/ Amino Acids/Dextrose/ Fat Emulsion Intravenous (Sodium Chloride/ Infuvite Adult / Multitrace-5 Conc/ Tpn - Tpn Fluid/ Dextr... 1,920 ml @ 80 mls/hr TPN CONT IV Last administered on 09/11/16 10:45; Start 09/10/16 at 22:00; Stop at 21:59; Status DC Hydromorphone HCl (Dilaudid) 2 mg PRN Q4HRS PRN IV PAIN Last administered on 06:14; Start 09/10/16 at 12:00 Pantoprazole Sodium (Protonix Vial) 40 mg DAILYAC IVP Last administered on 09/10 14:05; Start 09/10/16 at 13:00; Stop 09/11/16 at 06:17; Status DC Amlodipine Besylate (Norvasc) 5 mg DAILY PO Last administered on 09/11/16 09: 56; Start 09/10/16 at 13:00; Stop 09/12/16 at 11:04; Status DC Sertraline HCl (Zoloft) 50 mg DAILY PO Last administered on 09/13/16 08:52; Start 09/11/16 at 09:00 Ondansetron HCl (Zofran) 4 mg Q6HRS IV Last administered on 09/13/16 06:07; Start 09/10/16 at 12:00 Acetaminophen 650 mg 650 mg Q4HRS PRN PO MILD PAIN / TEMP; Start 09/10/16 at 12 :00 Potassium Chloride/Dextrose/ Sodium Chloride (Iv D5% - 1/2 NS) 1,015 ml @ 125 mls/hr Q8H8M IV Last administered on 09/11/16 05:41; Start 09/10/16 at 12:00; Stop 09/10/16 at 21:59; Status DC Zolpidem Tartrate (Ambien) 5 mg PRN QHS PRN PO INSOMNIA; Start 09/10/16 at 12: 30 Lorazepam 0.5 mg 0.5 mg PRN Q6HRS PRN PO ANXIETY / AGITATION; Start 09/10/16 at 12:30; Stop 09/12/16 at 13:55; Status DC Potassium Chloride/Dextrose/ Sod Cl (KCl 20 Meq In D5W-1/2 NS) 1,000 ml @ 125 mls/hr Q8H IV ; Start 09/10/16 at 12:30; Status UNV Hydromorphone HCl (Dilaudid) 4 mg PRN Q4HRS PRN IV PAIN SEVERE Last administered on 09/13/16 08:53; Start 09/10/16 at 13:30 Pantoprazole Sodium 40 mg 40 mg DAILYAC IVP Last administered on 09/13/16 08:52 ; Start 09/11/16 at 07:30 Magnesium Sulfate/ Dextrose (Magnesium Sulfate PREMIX 2GM) 50 ml @ 25 mls/hr 1X ONCE IV Last administered on 09/11/16 09:40; Start 09/11/16 at 09:15; Stop 09/11/16 at 11:14; Status DC Potassium Chloride 20 meq 20 meq 1X ONCE PO Last administered on 09/11/16 09: 56; Start 09/11/16 at 09:15; Stop 09/11/16 at 09:21; Status DC Sodium Chloride/ Potassium Chloride/ Magnesium Sulfate/ Multivitamins/ Chromium/ Copper/ Manganese/Seleni/ Zn/Sodium Acetate/ Total Parenteral Nutrition/Amino Acids/Dextrose/ Fat Emulsion Intravenous (Sodium Chloride/ Infuvite Adult/ Multitrace-5 Conc/ Tpn - Tpn Fluid/ Dextrose 70%-Water Iv So... 1,920 ml @ 80 mls/hr TPN CONT IV Last administered on 09/11/16 21:20; Start 09/11/16 at 22: 00; Stop 09/12/16 at 21:59; Status DC Amlodipine Besylate 10 mg 10 mg DAILY PO Last administered on 09/13/16 08:52; Start 09/13/16 at 09:00 Sodium Chloride/ Potassium Chloride/ Magnesium Sulfate/ Multivitamins/ Chromium/ Copper/ Manganese/Seleni/ Zn/Sodium Acetate/ Total Parenteral Nutrition/Amino Acids/Dextrose/ Fat Emulsion Intravenous (Sodium Chloride/ Infuvite Adult/ Multitrace-5 Conc/ Tpn - Tpn Fluid/ Dextrose 70%-Water Iv So... 1,920 ml @ 80 mls/hr TPN CONT IV Last administered on 09/12/16 22:12; Start 09/12/16 at 22:00 ; Stop 09/13/16 at 21:59 Lorazepam (Ativan) 0.5 mg PRN Q6HRS PRN PO ANXIETY / AGITATION; Start 09/12/16 at 13:55 Diphenhydramine HCl (Benadryl) 25 mg PRN Q6HRS PRN PO ITCHING Last administered on 09/12/16 20:10; Start 09/12/16 at 19:45 Active Scripts Active Anaspaz (Hyoscyamine Sulfate) 0.125 Mg Tab.rapdis 0.125 Mg PO Q6HRS PRN Sertraline Hcl 50 Mg Tablet 100 Mg PO DAILY 30 Days Protonix (Pantoprazole Sodium) 40 Mg Tablet.dr 1 Tab PO DAILY Zinc Oxide 56.7 Gm Oint...g. 1 Sang TP BID Lidocaine 35.44 Gm Oint...g. 1 Sang TP BID Reported Famotidine 20 Mg Tablet 20 Mg PO DAILY Amlodipine Besylate 5 Mg Tablet 5 Mg PO DAILY Acetaminophen Supp (Acetaminophen) 650 Mg Supp.rect 650 Mg RC Q4HRS Ondansetron HCl 4 mg/2 ml Syr (Ondansetron HCl/Pf) 4 Mg/2 Ml Syringe 8 Mg IJ Q8HRS PRN Lorazepam 0.5 Mg Tablet 0.5 Mg PO Q6HRS PRN Hydromorphone 2 Mg/Ml Syringe (Hydromorphone Hcl) 2 Mg/1 Ml Disp.syrin 2 Mg IJ Q4HRS PRN Melatonin 3 Mg Tablet (Melatonin/Pyridoxine) 1 Each Tablet 1 Each PO QHS Virt-Caps Softgel (B Complex & C No.20/Folic Acid) 1 Mg Capsule 1 Mg PO DAILY Aranesp Syringe (Darbepoetin Sarbjit In Polysorbat) 60 Mcg/0.3 Ml Disp.syrin 60 Mcg SQ WEEKLY Vitals/I & O Vital Sign - Last 24 Hours 09/12/16 09/12/16 09/12/16 09/12/16 15:43 16:07 16:08 19:00 Temp 97.9 97.7 97.9 97.7 Pulse 79 88 97 Resp 18 16 16 B/P 188/83 175/85 150/84 Pulse Ox 100 98 O2 Delivery Room Air Room Air Room Air 09/12/16 09/12/16 09/12/16 09/13/16 20:00 23:00 23:48 03:00 Temp 97.3 97.3 97.6 97.3 97.3 97.6 Pulse 96 96 98 Resp 20 20 B/P 151/86 151/86 177/55 Pulse Ox 98 98 98 O2 Delivery Room Air Room Air Room Air Room Air 09/13/16 09/13/16 09/13/16 09/13/16 06:10 06:13 07:33 07:39 Temp 97.7 97.7 Pulse 82 82 105 Resp 20 B/P 167/71 167/71 110/62 Pulse Ox 100 O2 Delivery Room Air Room Air 09/13/16 09/13/16 09/13/16 09/13/16 08:52 08:53 09:06 09:28 Pulse 105 85 Resp 16 16 B/P 110/62 Pulse Ox 98 O2 Delivery Room Air Room Air 09/13/16 09/13/16 11:15 11:23 Temp 97.4 97.4 Pulse 87 Resp 20 16 B/P 126/59 Pulse Ox 98 O2 Delivery Room Air Room Air Intake and Output 09/12/16 09/12/16 09/13/16 14:59 22:59 06:59 Intake Total 0 ml 0 ml Balance 0 ml 0 ml BENITA LUTZ MD Sep 13, 2016 11:33
[2016-09-13] MEDS ORDERED: CEFTRIAXONE SODIUM 1 GM in IV NORMAL SALINE 50ML 50 ML IV SCH (12:00)
[2016-09-13] MEDS: TPN PER PHARMACY MC PRN (12:04)
[2016-09-13] MEDS ORDERED: DEXTROSE 70% IV SCH ×9 (22:00)
[2016-09-13] MEDS ORDERED: TOTAL PARENTERAL NUTRITION IV SCH ×9 (22:00)
[2016-09-13] MEDS ORDERED: AMINO ACID IV SCH ×9 (22:00)
[2016-09-13] MEDS ORDERED: [UNRECOGNIZED DRUG - OTHER] IV SCH ×9 (22:00)
[2016-09-14] MEDS: HYDROMORPHONE 2 MG/ML VIAL. IV PRN ×6 (00:35→23:35)
[2016-09-14] MEDS: DIPHENHYDRAMINE HCL 25 MG CAPSULE PO PRN (01:22)
[2016-09-14 03:00] VITALS: BP 125/65
[2016-09-14 07:59] VITALS: BP 131/83
[2016-09-14] MEDS: ONDANSETRON PF 4 MG/2 ML VIAL. IV SCH (08:57)
[2016-09-14] MEDS: AMLODIPINE BESYLATE 10 MG TABLET. PO SCH (08:58)
[2016-09-14] MEDS: PANTOPRAZOLE IV PUSH 40 MG VIAL. IVP SCH (08:58)
[2016-09-14] MEDS: SERTRALINE 50 MG TABLET. PO SCH (08:58)
--- NOTE | 2016-09-14 10:28 | PDOC ---
PROGRESS NOTES Subjective Subjective feels better. no nausea or vomiting. blood pressure is okay. Objective Objective Vital Signs Date Time Temp Pulse Resp B/P Pulse Ox O2 Delivery O2 Flow Rate FiO2 09/14/16 09:24 16 Room Air 09/14/16 08:58 90 131/83 09/14/16 08:57 100 09/14/16 07:59 97.9 97.9 Intake and Output 09/14/16 07:00 Intake Total 50 ml Balance 50 ml Intake Oral 0 ml IV Total 50 ml # Voids 7 Physical Exam Abdomen: Soft, Other (enterocutaneous fistula) Heart: Regular rate, Normal S1, Normal S2 Extremities: No edema General: Alert HEENT: Atraumatic Lungs: Clear to auscultation Neuro: Normal speech Psych/Mental Status: Mental status NL Skin: No rashes Assessment Assessment Problems Medical Problems: Recurrent vomiting. controlled 2. Elevated liver function tests. stable 3. Enterocutaneous fistula. 4. Enterovesical fistula. 5. Hypertension. 6. Depression. hypokalemia resolved hypomagnesemia resolved common bile duct kink on MRCP without high grade obstruction Enterobacter uti (1) Abdominal pain Status: Acute (2) Accelerated hypertension Status: Acute (3) Enterocutaneous fistula Status: Acute (4) Generalized weakness Status: Acute (5) Hematemesis Status: Acute (6) Nausea and vomiting Status: Acute Plan Plan of Care continue TPN start zofran orally every 6 hours and change iv zofran to prn switch to vantin monitor for further vomiting anticipate dismissal to home tomorrow analgesics prn labs tomorrow Comment Review of Relevant I have reviewed the following items lucila (where applicable) has been applied. Labs Laboratory Tests Test 09/13/16 04:30 Sodium Level 139mmol/L (136-145) Potassium Level 4.0mmol/L (3.5-5.1) Chloride Level 105mmol/L (98-107) Carbon Dioxide Level 27mmol/L (21-32) Anion Gap 7 (6-14) Blood Urea Nitrogen 27mg/dL (7-20) Creatinine 0.6mg/dL (0.6-1.0) Estimated GFR (Cockcroft-Gault) 123.0 Glucose Level 115mg/dL (70-99) Calcium Level 9.5mg/dL (8.5-10.1) Phosphorus Level 3.9mg/dL (2.6-4.7) Magnesium Level 2.1mg/dL (1.8-2.4) Total Bilirubin 2.1mg/dL (0.2-1.0) Direct Bilirubin 1.4mg/dL (0.0-0.2) Aspartate Amino Transf (AST/SGOT) 126U/L (15-37) Alanine Aminotransferase (ALT/SGPT) 119U/L (14-59) Alkaline Phosphatase 834U/L (46-116) Total Protein 8.2g/dL (6.4-8.2) Albumin 2.9g/dL (3.4-5.0) Microbiology 09/10/16 Urine Culture - Final, Complete 09/10/16 Urine Culture Result 1 (ROYA) - Final, Complete 09/10/16 Antimicrobic Susceptibility - Final, Complete Medications Current Medications Ondansetron HCl (Zofran) 4 mg STK-MED ONCE .ROUTE ; Start 09/10/16 at 08:18; Stop 09/10/16 at 08:19; Status DC Hydromorphone HCl 2 mg 2 mg STK-MED ONCE .ROUTE ; Start 09/10/16 at 08:18; Stop 09/10/16 at 08:19; Status DC Sodium Chloride (Iv Sodium Chloride 0.9% 1000ml Bag) 1,000 ml @ 1,000 mls/hr 1X ONCE IV Last administered on 09/10/16 08:33; Start 09/10/16 at 08:30; Stop 09/10/16 at 09:29; Status DC Ondansetron HCl (Zofran) 4 mg 1X ONCE IV ; Start 09/10/16 at 08:30; Stop at 08:30; Status DC Hydromorphone HCl (Dilaudid) 1 mg PRN Q15MIN PRN IV/SQ PAIN GREATER THAN 3/10 Last administered on 09/10/16 10:40; Start 09/10/16 at 08:30; Stop 09/11/16 at 08:29; Status DC Ondansetron HCl (Zofran) 4 mg ONCE ONCE IV Last administered on 09/10/16 08: 31; Start 09/10/16 at 08:30; Stop 09/10/16 at 08:31; Status DC Info 1 each PRN DAILY PRN MC SEE COMMENTS Last administered on 09/13/16 12:04; Start 09/10/16 at 10:30 Ondansetron HCl (Zofran) 4 mg Q6HRS IV ; Start 09/10/16 at 12:00; Stop 09/11/16 at 11:59; Status DC Hydromorphone HCl 1 mg 1 mg PRN Q4HRS PRN IV PAIN; Start 09/10/16 at 10:30; Stop 09/10/16 at 12:06; Status DC Dextrose/Sodium Chloride (Iv D5% - NS) 1,000 ml @ 80 mls/hr 1X ONCE IV Last administered on 09/10/16 12:29; Start 09/10/16 at 10:30; Stop 09/11/16 at 10:48 ; Status DC Hydralazine HCl 10 mg 10 mg PRN Q4HRS PRN IVP ELEVATED BP, SEE COMMENTS Last administered on 09/13/16 23:15; Start 09/10/16 at 10:45 Sodium Chloride/ Sodium Acetate/ Potassium Chloride/ Magnesium Sulfate/ Multivitamins/ Chromium/Copper/ Manganese/Seleni/ Zn/Total Parenteral Nutrition/ Amino Acids/Dextrose/ Fat Emulsion Intravenous (Sodium Chloride/ Infuvite Adult / Multitrace-5 Conc/ Tpn - Tpn Fluid/ Dextr... 1,920 ml @ 80 mls/hr TPN CONT IV Last administered on 09/11/16 10:45; Start 09/10/16 at 22:00; Stop at 21:59; Status DC Hydromorphone HCl (Dilaudid) 2 mg PRN Q4HRS PRN IV PAIN Last administered on 06:14; Start 09/10/16 at 12:00 Pantoprazole Sodium (Protonix Vial) 40 mg DAILYAC IVP Last administered on 09/10 14:05; Start 09/10/16 at 13:00; Stop 09/11/16 at 06:17; Status DC Amlodipine Besylate (Norvasc) 5 mg DAILY PO Last administered on 09/11/16 09: 56; Start 09/10/16 at 13:00; Stop 09/12/16 at 11:04; Status DC Sertraline HCl (Zoloft) 50 mg DAILY PO Last administered on 09/14/16 08:58; Start 09/11/16 at 09:00 Ondansetron HCl (Zofran) 4 mg Q6HRS IV Last administered on 09/14/16 08:57; Start 09/10/16 at 12:00 Acetaminophen 650 mg 650 mg Q4HRS PRN PO MILD PAIN / TEMP; Start 09/10/16 at 12 :00 Potassium Chloride/Dextrose/ Sodium Chloride (Iv D5% - 1/2 NS) 1,015 ml @ 125 mls/hr Q8H8M IV Last administered on 09/11/16 05:41; Start 09/10/16 at 12:00; Stop 09/10/16 at 21:59; Status DC Zolpidem Tartrate (Ambien) 5 mg PRN QHS PRN PO INSOMNIA; Start 09/10/16 at 12: 30 Lorazepam 0.5 mg 0.5 mg PRN Q6HRS PRN PO ANXIETY / AGITATION; Start 09/10/16 at 12:30; Stop 09/12/16 at 13:55; Status DC Potassium Chloride/Dextrose/ Sod Cl (KCl 20 Meq In D5W-1/2 NS) 1,000 ml @ 125 mls/hr Q8H IV ; Start 09/10/16 at 12:30; Status UNV Hydromorphone HCl (Dilaudid) 4 mg PRN Q4HRS PRN IV PAIN SEVERE Last administered on 09/14/16 08:57; Start 09/10/16 at 13:30 Pantoprazole Sodium 40 mg 40 mg DAILYAC IVP Last administered on 09/14/16 08:58 ; Start 09/11/16 at 07:30 Magnesium Sulfate/ Dextrose (Magnesium Sulfate PREMIX 2GM) 50 ml @ 25 mls/hr 1X ONCE IV Last administered on 09/11/16 09:40; Start 09/11/16 at 09:15; Stop 09/11/16 at 11:14; Status DC Potassium Chloride 20 meq 20 meq 1X ONCE PO Last administered on 09/11/16 09: 56; Start 09/11/16 at 09:15; Stop 09/11/16 at 09:21; Status DC Sodium Chloride/ Potassium Chloride/ Magnesium Sulfate/ Multivitamins/ Chromium/ Copper/ Manganese/Seleni/ Zn/Sodium Acetate/ Total Parenteral Nutrition/Amino Acids/Dextrose/ Fat Emulsion Intravenous (Sodium Chloride/ Infuvite Adult/ Multitrace-5 Conc/ Tpn - Tpn Fluid/ Dextrose 70%-Water Iv So... 1,920 ml @ 80 mls/hr TPN CONT IV Last administered on 09/11/16 21:20; Start 09/11/16 at 22: 00; Stop 09/12/16 at 21:59; Status DC Amlodipine Besylate 10 mg 10 mg DAILY PO Last administered on 09/14/16 08:58; Start 09/13/16 at 09:00 Sodium Chloride/ Potassium Chloride/ Magnesium Sulfate/ Multivitamins/ Chromium/ Copper/ Manganese/Seleni/ Zn/Sodium Acetate/ Total Parenteral Nutrition/Amino Acids/Dextrose/ Fat Emulsion Intravenous (Sodium Chloride/ Infuvite Adult/ Multitrace-5 Conc/ Tpn - Tpn Fluid/ Dextrose 70%-Water Iv So... 1,920 ml @ 80 mls/hr TPN CONT IV Last administered on 09/12/16 22:12; Start 09/12/16 at 22:00 ; Stop 09/13/16 at 21:59; Status DC Lorazepam (Ativan) 0.5 mg PRN Q6HRS PRN PO ANXIETY / AGITATION; Start 09/12/16 at 13:55 Diphenhydramine HCl 25 mg 25 mg PRN Q6HRS PRN PO ITCHING Last administered on 01:22; Start 09/12/16 at 19:45 Ceftriaxone Sodium 1 gm/ Sodium Chloride 50 ml @ 100 mls/hr Q24H IV Last administered on 09/13/16 11:43; Start 09/13/16 at 12:00 Sodium Chloride/ Potassium Chloride/ Magnesium Sulfate/ Multivitamins/ Chromium/ Copper/ Manganese/Seleni/ Zn/Sodium Acetate/ Total Parenteral Nutrition/Amino Acids/Dextrose/ Fat Emulsion Intravenous (Sodium Chloride/ Infuvite Adult/ Multitrace-5 Conc/ Tpn - Tpn Fluid/ Dextrose 70%-Water Iv So... 1,920 ml @ 80 mls/hr TPN CONT IV Last administered on 09/13/16 23:11; Start 09/13/16 at 22:00 ; Stop 09/14/16 at 21:59 Active Scripts Active Anaspaz (Hyoscyamine Sulfate) 0.125 Mg Tab.rapdis 0.125 Mg PO Q6HRS PRN Sertraline Hcl 50 Mg Tablet 100 Mg PO DAILY 30 Days Protonix (Pantoprazole Sodium) 40 Mg Tablet.dr 1 Tab PO DAILY Zinc Oxide 56.7 Gm Oint...g. 1 Sang TP BID Lidocaine 35.44 Gm Oint...g. 1 Sang TP BID Reported Famotidine 20 Mg Tablet 20 Mg PO DAILY Amlodipine Besylate 5 Mg Tablet 5 Mg PO DAILY Acetaminophen Supp (Acetaminophen) 650 Mg Supp.rect 650 Mg RC Q4HRS Ondansetron HCl 4 mg/2 ml Syr (Ondansetron HCl/Pf) 4 Mg/2 Ml Syringe 8 Mg IJ Q8HRS PRN Lorazepam 0.5 Mg Tablet 0.5 Mg PO Q6HRS PRN Hydromorphone 2 Mg/Ml Syringe (Hydromorphone Hcl) 2 Mg/1 Ml Disp.syrin 2 Mg IJ Q4HRS PRN Melatonin 3 Mg Tablet (Melatonin/Pyridoxine) 1 Each Tablet 1 Each PO QHS Virt-Caps Softgel (B Complex & C No.20/Folic Acid) 1 Mg Capsule 1 Mg PO DAILY Aranesp Syringe (Darbepoetin Sarbjit In Polysorbat) 60 Mcg/0.3 Ml Disp.syrin 60 Mcg SQ WEEKLY Vitals/I & O Vital Sign - Last 24 Hours 09/13/16 09/13/16 09/13/16 09/13/16 11:15 12:40 15:00 16:40 Temp 97.4 97.9 97.4 97.9 Pulse 87 85 Resp 20 16 20 16 B/P 126/59 136/74 Pulse Ox 98 100 O2 Delivery Room Air Room Air Room Air Room Air 09/13/16 09/13/16 09/13/16 09/13/16 19:00 20:00 23:15 23:43 Temp 97.7 95.9 97.7 95.9 Pulse 79 95 95 Resp 16 20 B/P 149/74 169/86 169/86 Pulse Ox 100 100 O2 Delivery Room Air Room Air Room Air 09/14/16 09/14/16 09/14/16 09/14/16 03:00 07:59 08:00 08:57 Temp 97.9 97.9 97.9 97.9 Pulse 96 90 Resp 16 16 16 B/P 125/65 131/83 Pulse Ox 98 100 100 O2 Delivery Room Air Room Air Room Air Room Air 09/14/16 09/14/16 08:58 09:24 Pulse 90 Resp 16 B/P 131/83 O2 Delivery Room Air Intake and Output 09/13/16 09/13/16 09/14/16 15:00 23:00 07:00 Intake Total 50 ml 0 ml Balance 50 ml 0 ml BENITA LUTZ MD Sep 14, 2016 10:28
[2016-09-14] MEDS: ONDANSETRON ODT 4 MG TAB.RAPDIS. PO SCH ×3 (11:01→23:32)
[2016-09-14] MEDS: FAMOTIDINE 20 MG TABLET. PO SCH ×2 (11:01→21:41)
[2016-09-14 11:50] VITALS: BP 153/70
[2016-09-14] MEDS: TPN PER PHARMACY MC PRN (14:19)
--- NOTE | 2016-09-14 14:43 | PDOC ---
G I PROGRESS NOTE Subjective Feeling better. Thinks about at baseline. Physical Exam Lungs clear. RRR Abdomen soft, diffusely/mildly tender. Review of Relevant I have reviewed the following items lucila (where applicable) has been applied. Labs Laboratory Tests Test 09/13/16 04:30 Sodium Level 139mmol/L (136-145) Potassium Level 4.0mmol/L (3.5-5.1) Chloride Level 105mmol/L (98-107) Carbon Dioxide Level 27mmol/L (21-32) Anion Gap 7 (6-14) Blood Urea Nitrogen 27mg/dL (7-20) Creatinine 0.6mg/dL (0.6-1.0) Estimated GFR (Cockcroft-Gault) 123.0 Glucose Level 115mg/dL (70-99) Calcium Level 9.5mg/dL (8.5-10.1) Phosphorus Level 3.9mg/dL (2.6-4.7) Magnesium Level 2.1mg/dL (1.8-2.4) Total Bilirubin 2.1mg/dL (0.2-1.0) Direct Bilirubin 1.4mg/dL (0.0-0.2) Aspartate Amino Transf (AST/SGOT) 126U/L (15-37) Alanine Aminotransferase (ALT/SGPT) 119U/L (14-59) Alkaline Phosphatase 834U/L (46-116) Total Protein 8.2g/dL (6.4-8.2) Albumin 2.9g/dL (3.4-5.0) Microbiology 09/10/16 Urine Culture - Final, Complete 09/10/16 Urine Culture Result 1 (ROYA) - Final, Complete 09/10/16 Antimicrobic Susceptibility - Final, Complete Medications Current Medications Ondansetron HCl (Zofran) 4 mg STK-MED ONCE .ROUTE ; Start 09/10/16 at 08:18; Stop 09/10/16 at 08:19; Status DC Hydromorphone HCl 2 mg 2 mg STK-MED ONCE .ROUTE ; Start 09/10/16 at 08:18; Stop 09/10/16 at 08:19; Status DC Sodium Chloride (Iv Sodium Chloride 0.9% 1000ml Bag) 1,000 ml @ 1,000 mls/hr 1X ONCE IV Last administered on 09/10/16 08:33; Start 09/10/16 at 08:30; Stop 09/10/16 at 09:29; Status DC Ondansetron HCl (Zofran) 4 mg 1X ONCE IV ; Start 09/10/16 at 08:30; Stop at 08:30; Status DC Hydromorphone HCl (Dilaudid) 1 mg PRN Q15MIN PRN IV/SQ PAIN GREATER THAN 3/10 Last administered on 09/10/16 10:40; Start 09/10/16 at 08:30; Stop 09/11/16 at 08:29; Status DC Ondansetron HCl (Zofran) 4 mg ONCE ONCE IV Last administered on 09/10/16 08: 31; Start 09/10/16 at 08:30; Stop 09/10/16 at 08:31; Status DC Info 1 each PRN DAILY PRN MC SEE COMMENTS Last administered on 09/14/16 14:19; Start 09/10/16 at 10:30 Ondansetron HCl (Zofran) 4 mg Q6HRS IV ; Start 09/10/16 at 12:00; Stop 09/11/16 at 11:59; Status DC Hydromorphone HCl 1 mg 1 mg PRN Q4HRS PRN IV PAIN; Start 09/10/16 at 10:30; Stop 09/10/16 at 12:06; Status DC Dextrose/Sodium Chloride (Iv D5% - NS) 1,000 ml @ 80 mls/hr 1X ONCE IV Last administered on 09/10/16 12:29; Start 09/10/16 at 10:30; Stop 09/11/16 at 10:48 ; Status DC Hydralazine HCl 10 mg 10 mg PRN Q4HRS PRN IVP ELEVATED BP, SEE COMMENTS Last administered on 09/13/16 23:15; Start 09/10/16 at 10:45 Sodium Chloride/ Sodium Acetate/ Potassium Chloride/ Magnesium Sulfate/ Multivitamins/ Chromium/Copper/ Manganese/Seleni/ Zn/Total Parenteral Nutrition/ Amino Acids/Dextrose/ Fat Emulsion Intravenous (Sodium Chloride/ Infuvite Adult / Multitrace-5 Conc/ Tpn - Tpn Fluid/ Dextr... 1,920 ml @ 80 mls/hr TPN CONT IV Last administered on 09/11/16 10:45; Start 09/10/16 at 22:00; Stop at 21:59; Status DC Hydromorphone HCl (Dilaudid) 2 mg PRN Q4HRS PRN IV PAIN Last administered on 06:14; Start 09/10/16 at 12:00 Pantoprazole Sodium (Protonix Vial) 40 mg DAILYAC IVP Last administered on 09/10 14:05; Start 09/10/16 at 13:00; Stop 09/11/16 at 06:17; Status DC Amlodipine Besylate (Norvasc) 5 mg DAILY PO Last administered on 09/11/16 09: 56; Start 09/10/16 at 13:00; Stop 09/12/16 at 11:04; Status DC Sertraline HCl (Zoloft) 50 mg DAILY PO Last administered on 09/14/16 08:58; Start 09/11/16 at 09:00 Ondansetron HCl (Zofran) 4 mg Q6HRS IV Last administered on 09/14/16 08:57; Start 09/10/16 at 12:00; Stop 09/14/16 at 10:26; Status DC Acetaminophen 650 mg 650 mg Q4HRS PRN PO MILD PAIN / TEMP; Start 09/10/16 at 12 :00 Potassium Chloride/Dextrose/ Sodium Chloride (Iv D5% - 1/2 NS) 1,015 ml @ 125 mls/hr Q8H8M IV Last administered on 09/11/16 05:41; Start 09/10/16 at 12:00; Stop 09/10/16 at 21:59; Status DC Zolpidem Tartrate (Ambien) 5 mg PRN QHS PRN PO INSOMNIA; Start 09/10/16 at 12: 30 Lorazepam 0.5 mg 0.5 mg PRN Q6HRS PRN PO ANXIETY / AGITATION; Start 09/10/16 at 12:30; Stop 09/12/16 at 13:55; Status DC Potassium Chloride/Dextrose/ Sod Cl (KCl 20 Meq In D5W-1/2 NS) 1,000 ml @ 125 mls/hr Q8H IV ; Start 09/10/16 at 12:30; Status UNV Hydromorphone HCl (Dilaudid) 4 mg PRN Q4HRS PRN IV PAIN SEVERE Last administered on 09/14/16 08:57; Start 09/10/16 at 13:30 Pantoprazole Sodium 40 mg 40 mg DAILYAC IVP Last administered on 09/14/16 08:58 ; Start 09/11/16 at 07:30; Stop 09/14/16 at 10:26; Status DC Magnesium Sulfate/ Dextrose (Magnesium Sulfate PREMIX 2GM) 50 ml @ 25 mls/hr 1X ONCE IV Last administered on 09/11/16 09:40; Start 09/11/16 at 09:15; Stop 09/11/16 at 11:14; Status DC Potassium Chloride 20 meq 20 meq 1X ONCE PO Last administered on 09/11/16 09: 56; Start 09/11/16 at 09:15; Stop 09/11/16 at 09:21; Status DC Sodium Chloride/ Potassium Chloride/ Magnesium Sulfate/ Multivitamins/ Chromium/ Copper/ Manganese/Seleni/ Zn/Sodium Acetate/ Total Parenteral Nutrition/Amino Acids/Dextrose/ Fat Emulsion Intravenous (Sodium Chloride/ Infuvite Adult/ Multitrace-5 Conc/ Tpn - Tpn Fluid/ Dextrose 70%-Water Iv So... 1,920 ml @ 80 mls/hr TPN CONT IV Last administered on 09/11/16 21:20; Start 09/11/16 at 22: 00; Stop 09/12/16 at 21:59; Status DC Amlodipine Besylate 10 mg 10 mg DAILY PO Last administered on 09/14/16 08:58; Start 09/13/16 at 09:00 Sodium Chloride/ Potassium Chloride/ Magnesium Sulfate/ Multivitamins/ Chromium/ Copper/ Manganese/Seleni/ Zn/Sodium Acetate/ Total Parenteral Nutrition/Amino Acids/Dextrose/ Fat Emulsion Intravenous (Sodium Chloride/ Infuvite Adult/ Multitrace-5 Conc/ Tpn - Tpn Fluid/ Dextrose 70%-Water Iv So... 1,920 ml @ 80 mls/hr TPN CONT IV Last administered on 09/12/16 22:12; Start 09/12/16 at 22:00 ; Stop 09/13/16 at 21:59; Status DC Lorazepam (Ativan) 0.5 mg PRN Q6HRS PRN PO ANXIETY / AGITATION; Start 09/12/16 at 13:55 Diphenhydramine HCl 25 mg 25 mg PRN Q6HRS PRN PO ITCHING Last administered on 01:22; Start 09/12/16 at 19:45 Ceftriaxone Sodium 1 gm/ Sodium Chloride 50 ml @ 100 mls/hr Q24H IV Last administered on 09/13/16 11:43; Start 09/13/16 at 12:00; Stop 09/14/16 at 10:26; Status DC Sodium Chloride/ Potassium Chloride/ Magnesium Sulfate/ Multivitamins/ Chromium/ Copper/ Manganese/Seleni/ Zn/Sodium Acetate/ Total Parenteral Nutrition/Amino Acids/Dextrose/ Fat Emulsion Intravenous (Sodium Chloride/ Infuvite Adult/ Multitrace-5 Conc/ Tpn - Tpn Fluid/ Dextrose 70%-Water Iv So... 1,920 ml @ 80 mls/hr TPN CONT IV Last administered on 09/13/16 23:11; Start 09/13/16 at 22:00 ; Stop 09/14/16 at 21:59 Ondansetron HCl (Zofran) 4 mg PRN Q6HRS PRN IV NAUSEA/VOMITING; Start 09/14/16 at 10:30 Famotidine (Pepcid) 20 mg BID PO Last administered on 09/14/16 11:01; Start 09/14/16 at 11:00 Cefpodoxime Proxetil (Vantin) 100 mg BID PO ; Start 09/14/16 at 21:00 Ondansetron HCl (Zofran Odt) 4 mg Q6HRS PO Last administered on 09/14/16 11:01 ; Start 09/14/16 at 12:00 Active Scripts Active Anaspaz (Hyoscyamine Sulfate) 0.125 Mg Tab.rapdis 0.125 Mg PO Q6HRS PRN Sertraline Hcl 50 Mg Tablet 100 Mg PO DAILY 30 Days Protonix (Pantoprazole Sodium) 40 Mg Tablet.dr 1 Tab PO DAILY Zinc Oxide 56.7 Gm Oint...g. 1 Sang TP BID Lidocaine 35.44 Gm Oint...g. 1 Sang TP BID Reported Famotidine 20 Mg Tablet 20 Mg PO DAILY Amlodipine Besylate 5 Mg Tablet 5 Mg PO DAILY Acetaminophen Supp (Acetaminophen) 650 Mg Supp.rect 650 Mg RC Q4HRS Ondansetron HCl 4 mg/2 ml Syr (Ondansetron HCl/Pf) 4 Mg/2 Ml Syringe 8 Mg IJ Q8HRS PRN Lorazepam 0.5 Mg Tablet 0.5 Mg PO Q6HRS PRN Hydromorphone 2 Mg/Ml Syringe (Hydromorphone Hcl) 2 Mg/1 Ml Disp.syrin 2 Mg IJ Q4HRS PRN Melatonin 3 Mg Tablet (Melatonin/Pyridoxine) 1 Each Tablet 1 Each PO QHS Virt-Caps Softgel (B Complex & C No.20/Folic Acid) 1 Mg Capsule 1 Mg PO DAILY Aranesp Syringe (Darbepoetin Sarbjit In Polysorbat) 60 Mcg/0.3 Ml Disp.syrin 60 Mcg SQ WEEKLY Vitals/I & O Vital Sign - Last 24 Hours 09/13/16 09/13/16 09/13/16 09/13/16 15:00 16:40 19:00 20:00 Temp 97.9 97.7 97.9 97.7 Pulse 85 79 Resp 20 16 16 B/P 136/74 149/74 Pulse Ox 100 100 O2 Delivery Room Air Room Air Room Air Room Air 09/13/16 09/13/16 09/14/16 09/14/16 23:15 23:43 03:00 07:59 Temp 95.9 97.9 97.9 95.9 97.9 97.9 Pulse 95 95 96 90 Resp 20 16 16 B/P 169/86 169/86 125/65 131/83 Pulse Ox 100 98 100 O2 Delivery Room Air Room Air Room Air 09/14/16 09/14/16 09/14/16 09/14/16 08:00 08:57 08:58 09:24 Pulse 90 Resp 16 16 B/P 131/83 Pulse Ox 100 O2 Delivery Room Air Room Air Room Air 09/14/16 11:50 Temp 97.5 97.5 Pulse 78 Resp 16 B/P 153/70 Pulse Ox 97 O2 Delivery Room Air Intake and Output 09/13/16 09/13/16 09/14/16 15:00 23:00 07:00 Intake Total 50 ml 0 ml Balance 50 ml 0 ml Problem List Problems Medical Problems: (1) Abdominal pain Status: Acute (2) Accelerated hypertension Status: Acute (3) Enterocutaneous fistula Status: Acute (4) Generalized weakness Status: Acute (5) Hematemesis Status: Acute (6) Nausea and vomiting Status: Acute Assessment Abdominal pain, improved. Abnormal LFT's. Cause unclear, but no evidence for major biliary issue. TPN, meds possible. Plan of Care: Continue current Tx, Mgmt Plan of Care Note No objections to discharge at your discretion. BENITA CALVILLO MD Sep 14, 2016 14:43
[2016-09-14 15:39] VITALS: BP 105/54
[2016-09-14 19:00] VITALS: BP 144/75
[2016-09-14] MEDS: CEFPODOXIME PROXETIL 100 MG TABLET. PO SCH (21:41)
[2016-09-14] MEDS ORDERED: DEXTROSE 70% IV SCH ×9 (22:00)
[2016-09-14] MEDS ORDERED: [UNRECOGNIZED DRUG - OTHER] IV SCH ×9 (22:00)
[2016-09-14] MEDS ORDERED: AMINO ACID IV SCH ×9 (22:00)
[2016-09-14] MEDS ORDERED: TOTAL PARENTERAL NUTRITION IV SCH ×9 (22:00)
[2016-09-14 23:00] VITALS: BP 157/84
[2016-09-15 03:00] VITALS: BP 160/67
[2016-09-15] MEDS: HYDROMORPHONE 2 MG/ML VIAL. IV PRN ×4 (03:57→16:01)
[2016-09-15 04:41] LABS: BASO % 2 % (0-3); EOS % 4 % (0-3); HEMATOCRIT 43.8 % (36.0-47.0); HEMOGLOBIN 13.7 g/dL (12.0-15.5); LYMPH # 0.7 x10^3/uL (1.0-4.8); LYMPH % 28 % (24-48); MEAN CORPUSCULAR HEMOGLOBIN 26 pg (25-35); MEAN CORPUSCULAR HGB CONC 31 g/dL (31-37); MEAN CORPUSCULAR VOLUME 83 fL (79-100); MONO % 7 % (0-9); NEUT % 59 % (31-73); PLATELET COUNT 167 x10^3/uL (140-400); RED BLOOD COUNT 5.25 x10^6/uL (3.50-5.40); RED CELL DISTRIBUTION WIDTH 21.8 % (11.5-14.5); WHITE BLOOD COUNT 2.6 x10^3/uL (4.0-11.0)
[2016-09-15 05:36] LABS: ALBUMIN 2.7 g/dL (3.4-5.0); CALCIUM 9.2 mg/dL (8.5-10.1); CREATININE 0.5 mg/dL (0.6-1.0); DIRECT BILIRUBIN 0.9 mg/dL (0.0-0.2); GFR 151.8; POTASSIUM 4.1 mmol/L (3.5-5.1); TOTAL BILIRUBIN 1.4 mg/dL (0.2-1.0); TOTAL PROTEIN 7.5 g/dL (6.4-8.2)
[2016-09-15] MEDS: ONDANSETRON ODT 4 MG TAB.RAPDIS. PO SCH ×3 (05:43→16:45)
[2016-09-15 07:00] VITALS: BP 136/63
--- NOTE | 2016-09-15 08:39 | PDOC ---
PROGRESS NOTES Subjective Subjective feels better. no vomiting. LFT improved. lab reviewed. Objective Objective Vital Signs Date Time Temp Pulse Resp B/P Pulse Ox O2 Delivery O2 Flow Rate FiO2 09/15/16 07:47 Room Air 09/15/16 07:00 97.9 94 18 136/63 96 97.9 Intake and Output 09/15/16 07:00 Intake Total 120 ml Output Total 600 ml Balance -480 ml Intake Oral 120 ml Output Urine Total 600 ml # Voids 4 Physical Exam Abdomen: Soft, Other (enterocutaneous fistula) Heart: Regular rate, Normal S1, Normal S2 Extremities: No edema General: Alert HEENT: Atraumatic Lungs: Clear to auscultation Neuro: Normal speech Psych/Mental Status: Mental status NL Skin: No rashes Assessment Assessment Problems Medical Problems: Recurrent vomiting. resolved 2. Elevated liver function tests. improved 3. Enterocutaneous fistula. 4. Enterovesical fistula. 5. Hypertension. 6. Depression. hypokalemia resolved hypomagnesemia resolved common bile duct kink on MRCP without high grade obstruction Enterobacter uti (1) Abdominal pain Status: Acute (2) Accelerated hypertension Status: Acute (3) Enterocutaneous fistula Status: Acute (4) Generalized weakness Status: Acute (5) Hematemesis Status: Acute (6) Nausea and vomiting Status: Acute Plan Plan of Care dismiss today Comment Review of Relevant I have reviewed the following items lucila (where applicable) has been applied. Labs Laboratory Tests Test 09/15/16 04:15 White Blood Count 2.6x10^3/uL (4.0-11.0) Red Blood Count 5.25x10^6/uL (3.50-5.40) Hemoglobin 13.7g/dL (12.0-15.5) Hematocrit 43.8% (36.0-47.0) Mean Corpuscular Volume 83fL (79-100) Mean Corpuscular Hemoglobin 26pg (25-35) Mean Corpuscular Hemoglobin Concent 31g/dL (31-37) Red Cell Distribution Width 21.8% (11.5-14.5) Platelet Count 167x10^3/uL (140-400) Neutrophils (%) (Auto) 59% (31-73) Lymphocytes (%) (Auto) 28% (24-48) Monocytes (%) (Auto) 7% (0-9) Eosinophils (%) (Auto) 4% (0-3) Basophils (%) (Auto) 2% (0-3) Neutrophils # (Auto) 1.5x10^3uL (1.8-7.7) Lymphocytes # (Auto) 0.7x10^3/uL (1.0-4.8) Monocytes # (Auto) 0.2x10^3/uL (0.0-1.1) Eosinophils # (Auto) 0.1x10^3/uL (0.0-0.7) Basophils # (Auto) 0.0x10^3/uL (0.0-0.2) Sodium Level 138mmol/L (136-145) Potassium Level 4.1mmol/L (3.5-5.1) Chloride Level 104mmol/L (98-107) Carbon Dioxide Level 27mmol/L (21-32) Anion Gap 7 (6-14) Blood Urea Nitrogen 22mg/dL (7-20) Creatinine 0.5mg/dL (0.6-1.0) Estimated GFR (Cockcroft-Gault) 151.8 Glucose Level 92mg/dL (70-99) Calcium Level 9.2mg/dL (8.5-10.1) Total Bilirubin 1.4mg/dL (0.2-1.0) Direct Bilirubin 0.9mg/dL (0.0-0.2) Aspartate Amino Transf (AST/SGOT) 83U/L (15-37) Alanine Aminotransferase (ALT/SGPT) 86U/L (14-59) Alkaline Phosphatase 652U/L (46-116) Total Protein 7.5g/dL (6.4-8.2) Albumin 2.7g/dL (3.4-5.0) Laboratory Tests Test 09/15/16 04:15 White Blood Count 2.6x10^3/uL (4.0-11.0) Red Blood Count 5.25x10^6/uL (3.50-5.40) Hemoglobin 13.7g/dL (12.0-15.5) Hematocrit 43.8% (36.0-47.0) Mean Corpuscular Volume 83fL (79-100) Mean Corpuscular Hemoglobin 26pg (25-35) Mean Corpuscular Hemoglobin Concent 31g/dL (31-37) Red Cell Distribution Width 21.8% (11.5-14.5) Platelet Count 167x10^3/uL (140-400) Neutrophils (%) (Auto) 59% (31-73) Lymphocytes (%) (Auto) 28% (24-48) Monocytes (%) (Auto) 7% (0-9) Eosinophils (%) (Auto) 4% (0-3) Basophils (%) (Auto) 2% (0-3) Neutrophils # (Auto) 1.5x10^3uL (1.8-7.7) Lymphocytes # (Auto) 0.7x10^3/uL (1.0-4.8) Monocytes # (Auto) 0.2x10^3/uL (0.0-1.1) Eosinophils # (Auto) 0.1x10^3/uL (0.0-0.7) Basophils # (Auto) 0.0x10^3/uL (0.0-0.2) Sodium Level 138mmol/L (136-145) Potassium Level 4.1mmol/L (3.5-5.1) Chloride Level 104mmol/L (98-107) Carbon Dioxide Level 27mmol/L (21-32) Anion Gap 7 (6-14) Blood Urea Nitrogen 22mg/dL (7-20) Creatinine 0.5mg/dL (0.6-1.0) Estimated GFR (Cockcroft-Gault) 151.8 Glucose Level 92mg/dL (70-99) Calcium Level 9.2mg/dL (8.5-10.1) Total Bilirubin 1.4mg/dL (0.2-1.0) Direct Bilirubin 0.9mg/dL (0.0-0.2) Aspartate Amino Transf (AST/SGOT) 83U/L (15-37) Alanine Aminotransferase (ALT/SGPT) 86U/L (14-59) Alkaline Phosphatase 652U/L (46-116) Total Protein 7.5g/dL (6.4-8.2) Albumin 2.7g/dL (3.4-5.0) Microbiology 09/10/16 Urine Culture - Final, Complete 09/10/16 Urine Culture Result 1 (ROYA) - Final, Complete 09/10/16 Antimicrobic Susceptibility - Final, Complete Medications Current Medications Ondansetron HCl (Zofran) 4 mg STK-MED ONCE .ROUTE ; Start 09/10/16 at 08:18; Stop 09/10/16 at 08:19; Status DC Hydromorphone HCl 2 mg 2 mg STK-MED ONCE .ROUTE ; Start 09/10/16 at 08:18; Stop 09/10/16 at 08:19; Status DC Sodium Chloride (Iv Sodium Chloride 0.9% 1000ml Bag) 1,000 ml @ 1,000 mls/hr 1X ONCE IV Last administered on 09/10/16 08:33; Start 09/10/16 at 08:30; Stop 09/10/16 at 09:29; Status DC Ondansetron HCl (Zofran) 4 mg 1X ONCE IV ; Start 09/10/16 at 08:30; Stop at 08:30; Status DC Hydromorphone HCl (Dilaudid) 1 mg PRN Q15MIN PRN IV/SQ PAIN GREATER THAN 3/10 Last administered on 09/10/16 10:40; Start 09/10/16 at 08:30; Stop 09/11/16 at 08:29; Status DC Ondansetron HCl (Zofran) 4 mg ONCE ONCE IV Last administered on 09/10/16 08: 31; Start 09/10/16 at 08:30; Stop 09/10/16 at 08:31; Status DC Info 1 each PRN DAILY PRN MC SEE COMMENTS Last administered on 09/14/16 14:19; Start 09/10/16 at 10:30 Ondansetron HCl (Zofran) 4 mg Q6HRS IV ; Start 09/10/16 at 12:00; Stop 09/11/16 at 11:59; Status DC Hydromorphone HCl 1 mg 1 mg PRN Q4HRS PRN IV PAIN; Start 09/10/16 at 10:30; Stop 09/10/16 at 12:06; Status DC Dextrose/Sodium Chloride (Iv D5% - NS) 1,000 ml @ 80 mls/hr 1X ONCE IV Last administered on 09/10/16 12:29; Start 09/10/16 at 10:30; Stop 09/11/16 at 10:48 ; Status DC Hydralazine HCl 10 mg 10 mg PRN Q4HRS PRN IVP ELEVATED BP, SEE COMMENTS Last administered on 09/13/16 23:15; Start 09/10/16 at 10:45 Sodium Chloride/ Sodium Acetate/ Potassium Chloride/ Magnesium Sulfate/ Multivitamins/ Chromium/Copper/ Manganese/Seleni/ Zn/Total Parenteral Nutrition/ Amino Acids/Dextrose/ Fat Emulsion Intravenous (Sodium Chloride/ Infuvite Adult / Multitrace-5 Conc/ Tpn - Tpn Fluid/ Dextr... 1,920 ml @ 80 mls/hr TPN CONT IV Last administered on 09/11/16 10:45; Start 09/10/16 at 22:00; Stop at 21:59; Status DC Hydromorphone HCl (Dilaudid) 2 mg PRN Q4HRS PRN IV PAIN Last administered on 06:14; Start 09/10/16 at 12:00 Pantoprazole Sodium (Protonix Vial) 40 mg DAILYAC IVP Last administered on 09/10 14:05; Start 09/10/16 at 13:00; Stop 09/11/16 at 06:17; Status DC Amlodipine Besylate (Norvasc) 5 mg DAILY PO Last administered on 09/11/16 09: 56; Start 09/10/16 at 13:00; Stop 09/12/16 at 11:04; Status DC Sertraline HCl (Zoloft) 50 mg DAILY PO Last administered on 09/14/16 08:58; Start 09/11/16 at 09:00 Ondansetron HCl (Zofran) 4 mg Q6HRS IV Last administered on 09/14/16 08:57; Start 09/10/16 at 12:00; Stop 09/14/16 at 10:26; Status DC Acetaminophen 650 mg 650 mg Q4HRS PRN PO MILD PAIN / TEMP; Start 09/10/16 at 12 :00 Potassium Chloride/Dextrose/ Sodium Chloride (Iv D5% - 1/2 NS) 1,015 ml @ 125 mls/hr Q8H8M IV Last administered on 09/11/16 05:41; Start 09/10/16 at 12:00; Stop 09/10/16 at 21:59; Status DC Zolpidem Tartrate (Ambien) 5 mg PRN QHS PRN PO INSOMNIA; Start 09/10/16 at 12: 30 Lorazepam 0.5 mg 0.5 mg PRN Q6HRS PRN PO ANXIETY / AGITATION; Start 09/10/16 at 12:30; Stop 09/12/16 at 13:55; Status DC Potassium Chloride/Dextrose/ Sod Cl (KCl 20 Meq In D5W-1/2 NS) 1,000 ml @ 125 mls/hr Q8H IV ; Start 09/10/16 at 12:30; Status UNV Hydromorphone HCl (Dilaudid) 4 mg PRN Q4HRS PRN IV PAIN SEVERE Last administered on 09/15/16 07:47; Start 09/10/16 at 13:30 Pantoprazole Sodium 40 mg 40 mg DAILYAC IVP Last administered on 09/14/16 08:58 ; Start 09/11/16 at 07:30; Stop 09/14/16 at 10:26; Status DC Magnesium Sulfate/ Dextrose (Magnesium Sulfate PREMIX 2GM) 50 ml @ 25 mls/hr 1X ONCE IV Last administered on 09/11/16 09:40; Start 09/11/16 at 09:15; Stop 09/11/16 at 11:14; Status DC Potassium Chloride 20 meq 20 meq 1X ONCE PO Last administered on 09/11/16 09: 56; Start 09/11/16 at 09:15; Stop 09/11/16 at 09:21; Status DC Sodium Chloride/ Potassium Chloride/ Magnesium Sulfate/ Multivitamins/ Chromium/ Copper/ Manganese/Seleni/ Zn/Sodium Acetate/ Total Parenteral Nutrition/Amino Acids/Dextrose/ Fat Emulsion Intravenous (Sodium Chloride/ Infuvite Adult/ Multitrace-5 Conc/ Tpn - Tpn Fluid/ Dextrose 70%-Water Iv So... 1,920 ml @ 80 mls/hr TPN CONT IV Last administered on 09/11/16 21:20; Start 09/11/16 at 22: 00; Stop 09/12/16 at 21:59; Status DC Amlodipine Besylate 10 mg 10 mg DAILY PO Last administered on 09/14/16 08:58; Start 09/13/16 at 09:00 Sodium Chloride/ Potassium Chloride/ Magnesium Sulfate/ Multivitamins/ Chromium/ Copper/ Manganese/Seleni/ Zn/Sodium Acetate/ Total Parenteral Nutrition/Amino Acids/Dextrose/ Fat Emulsion Intravenous (Sodium Chloride/ Infuvite Adult/ Multitrace-5 Conc/ Tpn - Tpn Fluid/ Dextrose 70%-Water Iv So... 1,920 ml @ 80 mls/hr TPN CONT IV Last administered on 09/12/16 22:12; Start 09/12/16 at 22:00 ; Stop 09/13/16 at 21:59; Status DC Lorazepam (Ativan) 0.5 mg PRN Q6HRS PRN PO ANXIETY / AGITATION; Start 09/12/16 at 13:55 Diphenhydramine HCl 25 mg 25 mg PRN Q6HRS PRN PO ITCHING Last administered on 01:22; Start 09/12/16 at 19:45 Ceftriaxone Sodium 1 gm/ Sodium Chloride 50 ml @ 100 mls/hr Q24H IV Last administered on 09/13/16 11:43; Start 09/13/16 at 12:00; Stop 09/14/16 at 10:26; Status DC Sodium Chloride/ Potassium Chloride/ Magnesium Sulfate/ Multivitamins/ Chromium/ Copper/ Manganese/Seleni/ Zn/Sodium Acetate/ Total Parenteral Nutrition/Amino Acids/Dextrose/ Fat Emulsion Intravenous (Sodium Chloride/ Infuvite Adult/ Multitrace-5 Conc/ Tpn - Tpn Fluid/ Dextrose 70%-Water Iv So... 1,920 ml @ 80 mls/hr TPN CONT IV Last administered on 09/13/16 23:11; Start 09/13/16 at 22:00 ; Stop 09/14/16 at 21:59; Status DC Ondansetron HCl (Zofran) 4 mg PRN Q6HRS PRN IV NAUSEA/VOMITING; Start 09/14/16 at 10:30 Famotidine (Pepcid) 20 mg BID PO Last administered on 09/14/16 21:41; Start 09/14/16 at 11:00 Cefpodoxime Proxetil (Vantin) 100 mg BID PO Last administered on 09/14/16 21:41 ; Start 09/14/16 at 21:00 Ondansetron HCl 4 mg 4 mg Q6HRS PO Last administered on 09/15/16 05:43; Start 09/14/16 at 12:00 Sodium Chloride/ Potassium Chloride/ Magnesium Sulfate/ Multivitamins/ Chromium/ Copper/ Manganese/Seleni/ Zn/Sodium Acetate/ Total Parenteral Nutrition/Amino Acids/Dextrose/ Fat Emulsion Intravenous (Sodium Chloride/ Infuvite Adult/ Multitrace-5 Conc/ Tpn - Tpn Fluid/ Dextrose 70%-Water Iv So... 1,920 ml @ 80 mls/hr TPN CONT IV Last administered on 09/15/16 01:46; Start 09/14/16 at 22:00 ; Stop 09/15/16 at 21:59 Active Scripts Active Anaspaz (Hyoscyamine Sulfate) 0.125 Mg Tab.rapdis 0.125 Mg PO Q6HRS PRN Sertraline Hcl 50 Mg Tablet 100 Mg PO DAILY 30 Days Protonix (Pantoprazole Sodium) 40 Mg Tablet.dr 1 Tab PO DAILY Zinc Oxide 56.7 Gm Oint...g. 1 Sang TP BID Lidocaine 35.44 Gm Oint...g. 1 Sang TP BID Reported Famotidine 20 Mg Tablet 20 Mg PO DAILY Amlodipine Besylate 5 Mg Tablet 5 Mg PO DAILY Acetaminophen Supp (Acetaminophen) 650 Mg Supp.rect 650 Mg RC Q4HRS Ondansetron HCl 4 mg/2 ml Syr (Ondansetron HCl/Pf) 4 Mg/2 Ml Syringe 8 Mg IJ Q8HRS PRN Lorazepam 0.5 Mg Tablet 0.5 Mg PO Q6HRS PRN Hydromorphone 2 Mg/Ml Syringe (Hydromorphone Hcl) 2 Mg/1 Ml Disp.syrin 2 Mg IJ Q4HRS PRN Melatonin 3 Mg Tablet (Melatonin/Pyridoxine) 1 Each Tablet 1 Each PO QHS Virt-Caps Softgel (B Complex & C No.20/Folic Acid) 1 Mg Capsule 1 Mg PO DAILY Aranesp Syringe (Darbepoetin Sarbjit In Polysorbat) 60 Mcg/0.3 Ml Disp.syrin 60 Mcg SQ WEEKLY Vitals/I & O Vital Sign - Last 24 Hours 09/14/16 09/14/16 09/14/16 09/14/16 08:57 08:58 11:50 15:10 Temp 97.5 97.5 Pulse 90 78 Resp 16 16 16 B/P 131/83 153/70 Pulse Ox 100 97 O2 Delivery Room Air Room Air Room Air 09/14/16 09/14/16 09/14/16 09/14/16 15:39 19:00 19:22 20:00 Temp 97.7 97.5 97.7 97.5 Pulse 74 87 Resp 16 18 21 B/P 105/54 144/75 Pulse Ox 97 99 O2 Delivery Room Air Room Air Room Air Room Air 09/14/16 09/14/16 09/14/16 09/15/16 23:00 23:35 23:53 03:00 Temp 97.5 97.7 97.5 97.7 Pulse 86 81 Resp 18 B/P 157/84 160/67 Pulse Ox 97 99 O2 Delivery Room Air Room Air Room Air Room Air 09/15/16 09/15/16 09/15/16 09/15/16 03:57 04:25 07:00 07:47 Temp 97.9 97.9 Pulse 94 Resp B/P 136/63 Pulse Ox 96 O2 Delivery Room Air Room Air Room Air Room Air Intake and Output 09/14/16 09/14/16 09/15/16 15:00 23:00 07:00 Intake Total 0 ml 0 ml 120 ml Output Total 600 ml Balance 0 ml 0 ml -480 ml BENITA LUTZ MD Sep 15, 2016 08:39
--- NOTE | 2016-09-15 08:47 | DISCH ---
DISCHARGE INSTRUCTIONS Condition on Discharge Condition on Discharge: Stable Activity After Discharge Activity Instructions for Disc: Resume previous activity Diet after Discharge Diet after Discharge: Regular Additional Diet Restrictions: may eat egg daily Contacting the DRShell after DC Call your doctor for: If your condition worsens Follow-Up Follow up with: dr. lutz next week BENITA LUTZ MD Sep 15, 2016 08:47
--- NOTE | 2016-09-15 08:51 | PDOC ---
Provider Note Provider Note discharge summary dictated # [id number] BENITA LUTZ MD Sep 15, 2016 08:51
[2016-09-15] MEDS: FAMOTIDINE 20 MG TABLET. PO SCH (09:22)
[2016-09-15] MEDS: CEFPODOXIME PROXETIL 100 MG TABLET. PO SCH (09:22)
[2016-09-15] MEDS: SERTRALINE 50 MG TABLET. PO SCH (09:22)
[2016-09-15] MEDS: AMLODIPINE BESYLATE 10 MG TABLET. PO SCH (09:23)
[2016-09-15 11:00] VITALS: BP 150/73
[2016-09-15] MEDS: ONDANSETRON PF 4 MG/2 ML VIAL. IV PRN ×2 (11:56→16:01)
--- NOTE | 2016-09-15 12:17 | PDOC ---
Subjective: Subjective: Feeling. Ready to DC. Plans for home health to help w/ fistula care/dressing. Objective: Vital Signs: Vital Signs Date Time Temp Pulse Resp B/P Pulse Ox O2 Delivery O2 Flow Rate FiO2 09/15/16 11:56 100 Room Air 09/15/16 11:00 97.5 78 18 150/73 97.5 Labs: Laboratory Tests Test 09/15/16 04:15 White Blood Count 2.6x10^3/uL Red Blood Count 5.25x10^6/uL Hemoglobin 13.7g/dL Hematocrit 43.8% Mean Corpuscular Volume 83fL Mean Corpuscular Hemoglobin 26pg Mean Corpuscular Hemoglobin Concent 31g/dL Red Cell Distribution Width 21.8% Platelet Count 167x10^3/uL Neutrophils (%) (Auto) 59% Lymphocytes (%) (Auto) 28% Monocytes (%) (Auto) 7% Eosinophils (%) (Auto) 4% Basophils (%) (Auto) 2% Neutrophils # (Auto) 1.5x10^3uL Lymphocytes # (Auto) 0.7x10^3/uL Monocytes # (Auto) 0.2x10^3/uL Eosinophils # (Auto) 0.1x10^3/uL Basophils # (Auto) 0.0x10^3/uL Sodium Level 138mmol/L Potassium Level 4.1mmol/L Chloride Level 104mmol/L Carbon Dioxide Level 27mmol/L Anion Gap 7 Blood Urea Nitrogen 22mg/dL Creatinine 0.5mg/dL Estimated GFR (Cockcroft-Gault) 151.8 Glucose Level 92mg/dL Calcium Level 9.2mg/dL Total Bilirubin 1.4mg/dL Direct Bilirubin 0.9mg/dL Aspartate Amino Transf (AST/SGOT) 83U/L Alanine Aminotransferase (ALT/SGPT) 86U/L Alkaline Phosphatase 652U/L Total Protein 7.5g/dL Albumin 2.7g/dL PE: GEN: NAD LUNGS: clear anteriorly HEART: RRR ABD: +fistulas NEURO/PSYCH: A & O 3 A/P: Elevated LFTs - improved -s/p cholecystectomy -previous CT and US unrevealing, MRCP w/ "kink" in CBD Abd pain - chronic/stable -on TPN, also eats an egg QD Vomiting - resolved H/o diverticular disease w/ fistulas, multiple abd surgeries -- DC today - okay per GI. MIESHA RICO Sep 15, 2016 12:17
[2016-09-15 15:00] VITALS: BP 144/75
--- NOTE | 2016-09-15 16:31 | DS ---
DATE OF DISCHARGE: 09/15/2016 CONSULTANTS: Dr. 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 FINAL DIAGNOSES: 1. Intractable nausea and vomiting of undetermined etiology. 2. Enterocutaneous fistula. 3. Enterovesical fistula. 4. Urinary tract infection. 5. Elevated liver function tests secondary to cholestasis, improved. 6. Hypertension. HOSPITAL COURSE: The patient is a 61-year-old -[place] female with a history of enterocutaneous fistula and enterovesical fistula who was admitted to [facility] through Emergency Room on 09/10/2016 with intractable nausea and vomiting. There may have been hemetemesis, but it was not recurrent and the patient was seen by Dr. Benita Ovalle in consultation. She was treated with IV antiemetics and eventually switched to oral antiemetic with eventual resolution of nausea and vomiting. Her elevated liver function tests were evaluated as an outpatient and a CAT scan of the abdomen and pelvis was unremarkable. She had a previous cholecystectomy and an MRCP done on this admission showed that the common bile duct was kink without any dilatation and Dr. Ovalle felt it was not significant finding. The total bilirubin improved to 1.4 and she continued to improve. She had no further vomiting. She did have a urinary tract infection and she was treated with Vantin. She received IV Rocephin first and switched to Vantin. Her blood pressure was high and amlodipine was increased to 10 mg every day. She will be dismissed to home and follow up with Dr. Cisneros in 1 week, we will have TPN at 80 mL an hour with a CBC, CMP, magnesium, and phosphorus, every Wednesday. She will be dismissed on amlodipine 10 mg every day, Tylenol 650 mg every 4 hours p.r.n., Vantin 100 mg b.i.d. for 3 days, Benadryl 25 mg p.o. every 6 hours p.r.n. for itching, famotidine 20 mg b.i.d. and the Dilaudid will be 2 mg p.o. every 4 hours p.r.n. for severe pain and Zofran 4 mg p.o. every six hours and she can decrease it to 3 times a day, then twice a day, then once a day and then as needed depending how she is doing; lorazepam 0.5 mg every 6 hours p.r.n. for anxiety, sertraline 50 mg every day, Ambien 5 mg at bedtime p.r.n. and TPN at 80 mL an hour. She will follow with Dr. Cisneros next week and she will have home TPN via home health. BENITA CISNEROS MD DR: [id number]/jd JOB#: [id number] / [id number]
== END 2016-09-15 18:34 | disposition home health service (06) | DRG 393 ==
LOC: ER 08:06 → 6 SOUTH 09:40
PROVIDERS: ADMIT Internal Medicine; ATTEND Internal Medicine
DX: K63.2 Fistula of intestine (principal); K22.11 Ulcer of esophagus with bleeding; N39.0 Urinary tract infection, site not specified; E44.1 Mild protein-calorie malnutrition; I12.9 Hypertensive chronic kidney disease with stage 1 through stage 4 chronic kidney disease, or unspecified chronic kidney disease; E03.9 Hypothyroidism, unspecified; E83.42 Hypomagnesemia; E87.6 Hypokalemia; F32.9 Major depressive disorder, single episode, unspecified; F41.9 Anxiety disorder, unspecified; N18.9 Chronic kidney disease, unspecified; Z85.41 Personal history of malignant neoplasm of cervix uteri; Z86.2 Personal history of diseases of the blood and blood-forming organs and certain disorders involving the immune mechanism; Z90.49 Acquired absence of other specified parts of digestive tract; Z90.710 Acquired absence of both cervix and uterus; Z88.6 Allergy status to analgesic agent; Z88.8 Allergy status to other drugs, medicaments and biological substances; D50.0 Iron deficiency anemia secondary to blood loss (chronic)
CPT/HCPCS: 36415; 74022; 74181; 80048; 80053; 80076; 81001; 83605; 83690; 83735; 84100; 84478; 84484; 85007; 85027; 85610; 87086; 87186; 93005; 96361; 96374; 96375; 96376; C9113; J0360; J0696; J1170; J2405; J3475; J7030; J7042; J7060; Q0162; Q0163; 99285-25

== ENCOUNTER 2017-01-08 19:10 | Inpatient (IN) | payer MEDICARE ==
[~2017-01-08] VITALS: Ht 162.6 cm; Wt 60.0 kg
[~2017-01-08 19:10] MED LIST changes: +AMLO5TAB2 PO; +DOCU-109 PO; -DOCU-27 PO; +HYDR2TAB31 PO; -HYDR4TAB13 PO; +HYDR4TAB45 PO; -PHEN-373 PO; +PHEN-444 PO
[2017-01-08 19:35] LABS: BILIRUBIN,URINE NEGATIVE (NEG); GLUCOSE,URINE NEGATIVE (NEG); NITRITE,URINE POSITIVE (NEG); PH,URINE 7.5; PROTEIN,URINE 30 mg/dL (NEG-TRACE); UROBILINOGEN,URINE 0.2 mg/dL (0.2 mg/dL)
[2017-01-08 19:43] LABS: BACTERIA,URINE MANY /HPF (0-FEW); SQUAMOUS EPITHELIAL CELL,UR MOD /LPF; WBC,URINE >40 /HPF (0-4)
[2017-01-08] MEDS ORDERED: IV NORMAL SALINE 500ML BAG 500 ML IV ONE (19:45)
[2017-01-08 19:56] LABS: BASO % 1 % (0-3); EOS % 3 % (0-3); HEMOGLOBIN 11.6 g/dL (12.0-15.5); LYMPH # 1.2 x10^3/uL (1.0-4.8); LYMPH % 27 % (24-48); MEAN CORPUSCULAR HEMOGLOBIN 28 pg (25-35); MEAN CORPUSCULAR HGB CONC 33 g/dL (31-37); MEAN CORPUSCULAR VOLUME 84 fL (79-100); MONO % 14 % (0-9); NEUT % 55 % (31-73); PLATELET COUNT 350 x10^3/uL (140-400); RED BLOOD COUNT 4.18 x10^6/uL (3.50-5.40); RED CELL DISTRIBUTION WIDTH 16.8 % (11.5-14.5); WHITE BLOOD COUNT 4.4 x10^3/uL (4.0-11.0)
--- NOTE | 2017-01-08 20:06 | PHYS DOC ---
Past Medical History Past Medical History: Anxiety, Cancer, Diverticulitis, Hypertension, UTI, Other Additional Past Medical Histor: abd pain,septicemia, Vesicoenteric fistula, cervical CA; blood clot in [place] Past Surgical History: Hysterectomy, Other Additional Past Surgical Histo: bowel resection, ab fistula Alcohol Use: None Drug Use: None Adult General Chief Complaint Chief Complaint: ABDOMINAL PAIN HPI HPI Patient is a 61 year old female who presents as which is just complaining of vomiting and abdominal pain that is not being controlled with her by mouth medications at home. Patient past medical history significant for the presence of fistulous secondary to diverticulitis. Patient has been having fevers at home as high as 100.6. Patient was recently discharged from the hospital with a similar presentation, at baseline patient also was has a second-degree of abdominal pain but according to the patient and the family the patient got abruptly worse today. Review of Systems Review of Systems Constitutional: He is to fevers Eyes: Denies change in visual acuity, redness, or eye pain [] HENT: Denies nasal congestion or sore throat [] Respiratory: Denies cough or shortness of breath [] Cardiovascular: No chest pain GI: Distal abdominal pain, just the drainage from fistula : Denies dysuria or hematuria [] Musculoskeletal: Denies back pain or joint pain [] Integument: Denies rash or skin lesions [] Neurologic: Denies headache, focal weakness or sensory changes [] Current Medications Current Medications Current Medications Medications (Trade) Dose Ordered Sig/Alex Start Time Stop Time Status Last Admin Dose Admin Hydromorphone HCl (Dilaudid) 4 mg PRN Q6HRS PRN 01/08/17 21:00 Linezolid 300 ml @ 300 mls/hr 1X ONCE 01/08/17 21:45 01/08/17 22:44 Ondansetron HCl (Zofran) 4 mg PRN Q6HRS PRN 01/08/17 21:00 01/09/17 20:59 Piperacillin Sod/ Tazobactam Sod 3.375 gm/Sodium Chloride 50 ml @ 100 mls/hr 1X ONCE 01/08/17 21:45 01/08/17 22:14 Potassium Chloride/Dextrose/ Sod Cl 1,000 ml @ 125 mls/hr 1X ONCE 01/08/17 21:45 01/09/17 05:44 Sodium Chloride 500 ml @ 500 mls/hr 1X ONCE 01/08/17 19:45 01/08/17 20:44 DC 01/08/17 19:55 500 MLS/HR Allergies Allergies Allergies Coded Allergies Type Severity Reaction Last Updated Verified Iodinated Contrast- Oral and IV Dye Allergy Severe Anaphylaxis 12/05/15 Yes vancomycin Allergy Severe Swelling 12/05/15 Yes adhesive tape Allergy Intermediate Rash 12/05/15 Yes silver Allergy Intermediate Rash, Tegaderm film, can have on abd but no where else 12/05/15 Yes codeine Adverse Reaction Severe Nausea and Vomiting 12/11/15 Yes Physical Exam Physical Exam Constitutional: Well developed, well nourished, moderate distress, ill appearing. [] HENT: Normocephalic, atraumatic, oropharynx dry, no oral exudates, nose normal. [] Eyes: EOMI, conjunctiva normal, no discharge. [] Neck: Normal range of motion, no tenderness, supple, no stridor. [] Cardiovascular: Tachycardia, no murmur, normal perfusion neurovascular insufficiency Lungs & Thorax: Bilateral breath sounds clear to auscultation, mild tachypnea Abdomen: Bowel sounds normal, soft, diffuse tenderness to palpation with voluntary guarding, draining fistulas, no masses, no pulsatile masses. [] Skin: Warm, dry, no erythema, no rash. [] Back: Full range of motion, no CVA tenderness. [] Extremities: No tenderness, no cyanosis, no clubbing, ROM intact, no edema. [] Neurologic: Alert and oriented X 3, normal motor function, , no focal deficits noted. [] Psychologic: Affect normal, judgement normal, anxious. [] Current Patient Data Vital Signs Vital Signs Date Time Temp Pulse Resp B/P (MAP) Pulse Ox O2 Delivery O2 Flow Rate FiO2 01/08/17 20:52 Room Air 01/08/17 19:40 97.9 105 37 177/102 (127) 100 97.9 Lab Values Laboratory Tests Test 01/08/17 19:30 01/08/17 19:50 Urine Collection Type Unknown Urine Color Yellow Urine Clarity Cloudy Urine pH 7.5 Urine Specific [place] 1.015 Urine Protein 30 mg/dL (NEG-TRACE) Urine Glucose (UA) Negative mg/dL (NEG) Urine Ketones (Stick) Negative mg/dL (NEG) Urine Blood Small (NEG) Urine Nitrite Positive (NEG) Urine Bilirubin Negative (NEG) Urine Urobilinogen Dipstick 0.2 mg/dL (0.2 mg/dL) Urine Leukocyte Esterase Large (NEG) Urine RBC 6-10 /HPF (0-2) Urine WBC >40 /HPF (0-4) Urine Squamous Epithelial Cells Mod /LPF Urine Bacteria Many /HPF (0-FEW) White Blood Count 4.4 x10^3/uL (4.0-11.0) Red Blood Count 4.18 x10^6/uL (3.50-5.40) Hemoglobin 11.6 g/dL (12.0-15.5) L Hematocrit 35.0 % (36.0-47.0) #L Mean Corpuscular Volume 84 fL (79-100) Mean Corpuscular Hemoglobin 28 pg (25-35) Mean Corpuscular Hemoglobin Concent 33 g/dL (31-37) Red Cell Distribution Width 16.8 % (11.5-14.5) H Platelet Count 350 x10^3/uL (140-400) Neutrophils (%) (Auto) 55 % (31-73) Lymphocytes (%) (Auto) 27 % (24-48) Monocytes (%) (Auto) 14 % (0-9) H Eosinophils (%) (Auto) 3 % (0-3) Basophils (%) (Auto) 1 % (0-3) Neutrophils # (Auto) 2.4 x10^3uL (1.8-7.7) Lymphocytes # (Auto) 1.2 x10^3/uL (1.0-4.8) Monocytes # (Auto) 0.6 x10^3/uL (0.0-1.1) Eosinophils # (Auto) 0.1 x10^3/uL (0.0-0.7) Basophils # (Auto) 0.0 x10^3/uL (0.0-0.2) Sodium Level 136 mmol/L (136-145) Potassium Level 3.4 mmol/L (3.5-5.1) L Chloride Level 100 mmol/L (98-107) Carbon Dioxide Level 30 mmol/L (21-32) Anion Gap 6 (6-14) Blood Urea Nitrogen 13 mg/dL (7-20) Creatinine 0.7 mg/dL (0.6-1.0) Estimated GFR (Cockcroft-Gault) 102.9 BUN/Creatinine Ratio 19 (6-20) Glucose Level 113 mg/dL (70-99) H Lactic Acid Level 1.2 mmol/L (0.4-2.0) Calcium Level 9.4 mg/dL (8.5-10.1) Total Bilirubin 0.5 mg/dL (0.2-1.0) Aspartate Amino Transferase (AST) 20 U/L (15-37) Alanine Aminotransferase (ALT) 21 U/L (14-59) Alkaline Phosphatase 337 U/L (46-116) H Total Protein 9.5 g/dL (6.4-8.2) H Albumin 3.5 g/dL (3.4-5.0) Albumin/Globulin Ratio 0.6 (1.0-1.7) L Lipase 86 U/L (73-393) Laboratory Tests 01/08/17 19:50 Laboratory Tests 01/08/17 19:50 EKG EKG [] Radiology/Procedures Radiology/Procedures [] Course & Med Decision Making Course & Med Decision Making Pertinent Labs and Imaging studies reviewed. (See chart for details) Patient discussed with admitting doctor Blayne, he recommended Zyvox every 12, salt soaks and every 6, 4 mg of Dilaudid every 6 when necessary pain 4 mg Zofran when necessary nausea vomiting, maintenance fluids D5 with normal saline with 20 of potassium and 125 an hour [] Dragon Disclaimer Dragon Disclaimer This electronic medical record was generated, in whole or in part, using a voice recognition dictation system. Departure Departure Impression: Primary Impression: Intractable abdominal pain Additional Impressions: Fistula Fever Disposition: ADMITTED INPATIENT Admitting Physician: Roderick Cisneros Condition: GUARDED Referrals: RODERICK CISNEROS MD (PCP) Problem Qualifiers Adria GARCIA MD Jan 08, 2017 20:06
[2017-01-08 20:08] LABS: CALCIUM 9.4 mg/dL (8.5-10.1); CREATININE 0.7 mg/dL (0.6-1.0); GFR 102.9; POTASSIUM 3.4 mmol/L (3.5-5.1)
[2017-01-08 20:13] LABS: ALBUMIN 3.5 g/dL (3.4-5.0); ALBUMIN/GLOBULIN RATIO 0.6 (1.0-1.7); TOTAL BILIRUBIN 0.5 mg/dL (0.2-1.0); TOTAL PROTEIN 9.5 g/dL (6.4-8.2)
[2017-01-08] MEDS ORDERED: HYDROmorphone 2 MG/ML VIAL IV ONE ×3 (20:15→21:30)
[2017-01-08] MEDS ORDERED: ONDANSETRON PF 4 MG/2 ML VIAL. IV ONE (20:15)
[2017-01-08] MEDS ORDERED: ONDANSETRON PF 4 MG/2 ML VIAL. IV PRN (21:00)
[2017-01-08] MEDS ORDERED: POTASSIUM CL 20MEQ D5-0.9%NACL 1,000 ML IV ONE (21:45)
[2017-01-08] MEDS ORDERED: PIPERACILLIN/TAZOBACTAM 3.375 GM in IV NORMAL SALINE 50ML 50 ML IV ONE (21:45)
[2017-01-08 23:30] VITALS: BP 140/83
[2017-01-09] MEDS: HYDROmorphone 2 MG/ML VIAL IV PRN ×4 (00:44→20:20)
[2017-01-09] MEDS: PIPERACILLIN/TAZOBACTAM 3.375 GM in IV NORMAL SALINE 50ML 50 ML IV SCH ×5 (02:18→23:20)
[2017-01-09] MEDS ORDERED: ZINC56.7 TP (03:03)
[2017-01-09] MEDS ORDERED: HYDR2TAB31 PO (03:03)
[2017-01-09] MEDS ORDERED: ONDA4TAB10 SL (03:03)
--- NOTE | 2017-01-09 03:22 | ACF ---
Admission Forms Criteria ABDOMINAL PAIN Clinical Indications for Admission to Inpatient Care (Place 'X' for any and all applicable criteria): Admission is indicated for ANY ONE of the following(1)(2)(3)(4)(5): [X]I. Inpatient admission required rather than observation care (Also use Abdominal Pain: Observation Care, as appropriate) because of ANY ONE of the following: [X]a) Severe pain requiring acute inpatient management [ ]b) Identification of etiology/finding that requires inpatient care (eg, aortic dissection, free air) [ ]c) Absent bowel sounds with complete ileus(6) [ ]d) Suspected toxic megacolon [ ]e) Severe electrolyte abnormalities requiring inpatient care [ ]f) High fever or infection requiring inpatient admission as indicated by ANY ONE of following(7)(8): [ ] i) Appropriate outpatient or observational care antimicrobial treatment unavailable, not effective, or not feasible [ ] ii) Documented bacteremia [ ] iii) Temperature > 104.9 degrees F (oral) [ ] iv) T >103.1 F (oral) or < 96.8 F(rectal) that does not respond to all emergency treatment measures [ ]g) Signs of intestinal obstruction [B] [ ]h) Hemodynamic instability [ ]i) IV fluid to replace significant ongoing losses (greater than 3 L/m2 per day) (12)(13) [ ]j) Percutaneous or open drainage (eg, abscess, biliary tract ) procedures [ ]k) Parenteral nutrition regimen that must be implemented on inpatient basis [ ]l) Other condition,treatment or monitoring requiring inpatient admission. [ ]II. Peritoneal signs present [ ]III. Surgery needed that cannot be performed on an ambulatory basis. [ ]IV. Evaluation requires patient to not eat or drink for extended period ( eg, more than 24 hours). [ ]V. Contraindications and/or Inappropriate clinical situations for Observational Care in patients with abdominal pain, when ANY ONE of the following is required: [ ]a) Thorough evaluation is required to prevent catastrophic events due to delays in diagnosing (e.g.Mesenteric ischemia) 1,3 [ ]b) Patient with severe pathology or with chronic symptoms unlikely to improve in the ED stay (3) [ ]. General contraindications and/or Inappropriate clinical situations for Observational Care in patients with abdominal pain, when ANY ONE of the following is required: [ ]a) Prediction of prolongation of LOS based on ANY ONE of the following may be considered as a contraindication for observational care 2, 3, 4, 5, 6, 7, 8, 9, 10, 11 [ ]i) Age > 65 yrs. [ ]ii) Patient arriving by ambulance [ ]iii) Patient with high acuity [ ]iv) Patient requiring vital sign monitoring [ ]v) Patient on IV medication [ ]b) Systolic blood pressures 180mmHg 3,12 [ ]c) Patient with altered mental status including delirium and other alteration of consciousness, (3) [ ]d) Patient whose discharge disposition will be to a assisted home or rehabilitation home should not be managed in Emergency Department Observation Unit. CMS rule requires 3 days hospital stay before such placement.3,13 [ ]e) Patient with failure to thrive due to broad array of etiologies 3,16,17 [ ]f) Inability to ambulate 3,14 Extended stay beyond goal length of stay may be needed for(2)(3): [ ]a) Persistent abdominal pain with suspected intra-abdominal process [ ]b) Diagnosed condition requiring continued stay (e.g., pancreatitis, complicated diverticulitis) [ ]c) Surgery (e.g., colectomy) The original [employer] content created by [employer] has been revised. The portions of the content which have been revised are identified through the use of italic text or in bold, and [facility] has neither reviewed nor approved the modified material.All other unmodified content is copyright [employer]. Please see references footnoted in the original [employer] edition 2016 Admission Criteria Met?: Yes KEVIN BRASHER Jan 09, 2017 03:22
[2017-01-09 03:59] VITALS: BP 141/75
[2017-01-09 05:37] LABS: BASO # 0.1 x10^3/uL (0.0-0.2); BASO % 1 % (0-3); EOS % 9 % (0-3); HEMOGLOBIN 10.2 g/dL (12.0-15.5); LYMPH # 1.5 x10^3/uL (1.0-4.8); LYMPH % 31 % (24-48); MEAN CORPUSCULAR HEMOGLOBIN 27 pg (25-35); MEAN CORPUSCULAR HGB CONC 33 g/dL (31-37); MEAN CORPUSCULAR VOLUME 83 fL (79-100); MONO % 14 % (0-9); NEUT % 45 % (31-73); PLATELET COUNT 292 x10^3/uL (140-400); RED BLOOD COUNT 3.72 x10^6/uL (3.50-5.40); WHITE BLOOD COUNT 4.8 x10^3/uL (4.0-11.0)
[2017-01-09 05:53] LABS: ALBUMIN 2.9 g/dL (3.4-5.0); ALBUMIN/GLOBULIN RATIO 0.6 (1.0-1.7); CALCIUM 8.3 mg/dL (8.5-10.1); CREATININE 0.8 mg/dL (0.6-1.0); GFR 88.2; POTASSIUM 3.3 mmol/L (3.5-5.1); TOTAL BILIRUBIN 0.5 mg/dL (0.2-1.0)
[2017-01-09 07:00] VITALS: BP 116/66
[2017-01-09] MEDS ORDERED: ACETAMINOPHEN 325 MG TABLET. PO PRN (08:45)
[2017-01-09] MEDS ORDERED: LORazepam 0.5 MG TABLET PO PRN (08:45)
[2017-01-09] MEDS ORDERED: POTASSIUM CHLORIDE 20MEQ 50 ML IV ONE (09:00)
--- NOTE | 2017-01-09 09:02 | PDOC ---
Provider Note Provider Note history and physical dictated # [id number] BENITA LUTZ MD Jan 09, 2017 09:02
[2017-01-09] MEDS: POTASSIUM CL 20MEQ D5-0.9%NACL 1,000 ML IV SCH ×2 (09:14→18:45)
[2017-01-09] MEDS: FAMOTIDINE 20 MG TABLET. PO SCH ×2 (09:15→21:10)
[2017-01-09] MEDS: amLODIPine BESYLATE 5 MG TABLET PO SCH (09:15)
[2017-01-09] MEDS: LIDOCAINE 5% TOPICAL OINTMENT 35GM TUBE. TP SCH ×2 (09:30→21:11)
[2017-01-09] MEDS: ZINC OXIDE 20% TOPICAL OINTMENT 28GM TUBE. TP SCH ×2 (09:30→21:11)
--- NOTE | 2017-01-09 09:54 | RAD ---
KUB History: Abdominal pain. Findings: Surgical clips are seen within the right upper quadrant consistent with a previous cholecystectomy. Multiple surgical clips are seen within the iliac regions bilaterally. Additional small suture clips or anastomosis clips are present within the right mid abdomen. No obstructive bowel pattern is seen. Mild levoscoliosis is seen. Surgical screw is seen within the proximal left femur and surgical screws are seen within the proximal right femur. IMPRESSION: No bowel obstruction is evident.
--- NOTE | 2017-01-09 09:56 | RAD ---
Portable AP upright view CXR: Clinical indications: Fever and cough. Comparison: December 30, 2016. Findings: No acute lung infiltrate or pleural effusion or pulmonary edema or lung mass or pneumothorax is seen. The heart size, pulmonary vasculature, mediastinum and both alma are unremarkable. A right subclavian central line is unchanged in position. Impression: No acute radiographic abnormality is seen.
--- NOTE | 2017-01-09 10:17 | HP ---
ADMIT DATE: 01/09/2017 LOCATION: She is in room 572. HISTORY OF PRESENT ILLNESS: The patient is a 61-year-old -Iranian female with history of enterocutaneous fistula, enterovesical fistula, maintained on home TPN who has hypertension and anemia of chronic disease, recently dismissed from [facility] on 01/06/2017 with a fever of undetermined etiology. The patient was doing fine until 01/08/2017 when she had some nausea, vomiting, abdominal pain, and also had a fever of 100.6 degrees, prompting her to go to the Emergency Room. She does have a cough with clear sputum, but denies any dysuria. I spoke with the Emergency Room doctor last night and recommended that they order blood cultures x 2, start her on IV Zyvox and Zosyn. The antibiotics have been started. The patient does have pyuria, but does have an enterovesical fistula, so urine cultures will always be positive and will be nonindicative necessarily of an infection. The patient is maintained on home TPN and she was doing fine until 01/08/2017 as mentioned. ALLERGIES AND INTOLERANCES: INCLUDE IV IODINE, ADHESIVE TAPE, CODEINE, SILVER, AND VANCOMYCIN. MEDICATIONS: Prior to admission include amlodipine 5 mg every day, Dilaudid 2 mg p.o. q.i.d. p.r.n. for severe pain, Pepcid 20 mg b.i.d., 5% Lidoderm ointment followed by zinc oxide 20% applied b.i.d. topically to the abdomen, lorazepam 0.5 mg every 6 hours p.r.n. for anxiety, melatonin 3 mg at bedtime, sertraline 50 mg at bedtime, Tylenol 650 mg every 6 hours p.r.n., Zofran 4 mg every 6 hours p.r.n. PAST MEDICAL HISTORY: Significant for enterovesical fistula, enterocutaneous fistula, hypertension, anemia of chronic disease. She has a PICC line. She has a history of depression, history of esophagitis. She has had an appendectomy, cholecystectomy, tonsillectomy, hysterectomy, jejunostomy that was reversed, ileostomy that was reversed and had 5 abdominal enterovesical fistula repairs, all of which have been unsuccessful. She had a deep vein thrombosis in 2010. She has a history of diverticulitis, diverticulosis, erosive esophagitis, peptic ulcer disease, MSSA bacteremia due to a PICC line in the past and had a G-tube removed in 2011. SOCIAL HISTORY: She lives at home where she has a visiting nurse and home TPN. Does not drink alcohol nor does she smoke cigarettes. FAMILY HISTORY: Noncontributory. REVIEW OF SYSTEMS: GENERAL: She did have fever. CARDIOVASCULAR: No chest pain. PULMONARY: She still has the cough. GASTROINTESTINAL: She had abdominal pain, nausea, and vomiting. ENDOCRINE: No diabetes mellitus. SKIN: No rashes. The rest of systems reviewed are negative except as stated in history of present illness. PHYSICAL EXAMINATION: VITAL SIGNS: Temperature is 97.3 degrees, apical pulse 81, respiratory rate 20, blood pressure 116/66, oxygen saturation 93% on room air. HEENT: Eyes, gaze is conjugate. Extraocular muscles are intact. Mouth, tongue is midline. There is no yeast. NECK: No cervical lymphadenopathy or thyroid enlargement. CHEST: She has got a PowerPICC line in the right anterior chest. HEART: Reveals an S1, S2. There is no S3 or murmur. LUNGS: Clear. ABDOMEN: Soft, nontender. She has an enterocutaneous fistula. She had some erythema in the abdominal wall that she has had before. It is nontender, not distended. Bowel sounds positive. EXTREMITIES: Lower extremities without edema. SKIN: No rashes. NEUROLOGIC: Revealed no facial weakness. No focal weakness of the arms or legs. LABORATORY DATA: The white count was 4.8, hemoglobin 10.2 with a platelet count 292,000, 45 polys, 31 lymphocytes on the white cell differential. Sodium 138, potassium 3.3, chloride 103, total CO2 was 30, BUN 15, creatinine 0.8, blood sugar 108. Alkaline phosphatase 292, total protein 8.0, albumin 2.9. SGOT and SGPT were normal, alkaline phosphatase as mentioned was 292. Urinalysis showed greater than 40 white cells and 6-10 red blood cells. ASSESSMENT: 1. Fever. 2. Enterocutaneous fistula. 3. Enterovesical fistula. 4. Hypokalemia. 5. Nausea and vomiting. 6. Abdominal pain. 7. Hypertension. 8. Anemia of chronic disease. PLAN: Plan at this time is to consult Dr. Garcia Suggs. Wait for the blood culture results they were done in the Emergency Room. Continue with IV Zyvox and IV Zosyn. Get a chest x-ray and KUB. Resume her home medications. I spoke with the pharmacist and will increase potassium chloride in her TPN to 100 mEq per bag and give her 20 mEq of potassium chloride IV x 1 now. IV fluids will be ordered, but will be discontinued once her TPN is started. Zofran has been ordered IV every 6 hours p.r.n. Also Tylenol p.r.n. BENITA LUTZ MD DR: [id number]/jd JOB#: [id number] / [id number]
[2017-01-09 11:00] VITALS: BP 120/65
[2017-01-09] MEDS: TPN PER PHARMACY MC PRN (11:14)
--- NOTE | 2017-01-09 12:46 | PDOC ---
Infectious Disease Note Subjective Subjective Reconsulted for fever and abdominal infection. Refer to initial consult from 12/31/2016 After patient return home, she developed fever, chills N/V and abdominal pain. Feeling better now ROS ROS GEN: Denies sweats HEENT: Denies blurred vision, sore throat CV: Denies chest pain RESP: Denies shortness of air, cough GI: Denies diarrhea Vital Sign Vital Signs Vital Signs Date Time Temp Pulse Resp B/P (MAP) Pulse Ox O2 Delivery O2 Flow Rate FiO2 01/09/17 11:00 97.7 80 20 120/65 (83) 94 Room Air 97.7 Physical Exam PHYSICAL EXAM GENERAL: Alert, smiling, knitting LUNGS: Clear HEART: S1S2 ABD: Soft, NT, EC fistula with mild skin excoriation EXT: BLE edema, no cyanosis BIOLOGY INSTRUCTOR: Alert, oriented x 3, no focal neurologic deficit SKIN: No rash PICC clean Labs Lab Laboratory Tests Test 01/08/17 19:30 01/08/17 19:50 01/09/17 05:20 Urine Collection Type Unknown Urine Color Yellow Urine Clarity Cloudy Urine pH 7.5 Urine Specific [place] 1.015 Urine Protein 30 mg/dL (NEG-TRACE) Urine Glucose (UA) Negative mg/dL (NEG) Urine Ketones (Stick) Negative mg/dL (NEG) Urine Blood Small (NEG) Urine Nitrite Positive (NEG) Urine Bilirubin Negative (NEG) Urine Urobilinogen Dipstick 0.2 mg/dL (0.2 mg/dL) Urine Leukocyte Esterase Large (NEG) Urine RBC 6-10 /HPF (0-2) Urine WBC >40 /HPF (0-4) Urine Squamous Epithelial Cells Mod /LPF Urine Bacteria Many /HPF (0-FEW) White Blood Count 4.4 x10^3/uL (4.0-11.0) 4.8 x10^3/uL (4.0-11.0) Red Blood Count 4.18 x10^6/uL (3.50-5.40) 3.72 x10^6/uL (3.50-5.40) Hemoglobin 11.6 g/dL (12.0-15.5) 10.2 g/dL (12.0-15.5) Hematocrit 35.0 % (36.0-47.0) 31.0 % (36.0-47.0) Mean Corpuscular Volume 84 fL (79-100) 83 fL (79-100) Mean Corpuscular Hemoglobin 28 pg (25-35) 27 pg (25-35) Mean Corpuscular Hemoglobin Concent 33 g/dL (31-37) 33 g/dL (31-37) Red Cell Distribution Width 16.8 % (11.5-14.5) 17.0 % (11.5-14.5) Platelet Count 350 x10^3/uL (140-400) 292 x10^3/uL (140-400) Neutrophils (%) (Auto) 55 % (31-73) 45 % (31-73) Lymphocytes (%) (Auto) 27 % (24-48) 31 % (24-48) Monocytes (%) (Auto) 14 % (0-9) 14 % (0-9) Eosinophils (%) (Auto) 3 % (0-3) 9 % (0-3) Basophils (%) (Auto) 1 % (0-3) 1 % (0-3) Neutrophils # (Auto) 2.4 x10^3uL (1.8-7.7) 2.2 x10^3uL (1.8-7.7) Lymphocytes # (Auto) 1.2 x10^3/uL (1.0-4.8) 1.5 x10^3/uL (1.0-4.8) Monocytes # (Auto) 0.6 x10^3/uL (0.0-1.1) 0.7 x10^3/uL (0.0-1.1) Eosinophils # (Auto) 0.1 x10^3/uL (0.0-0.7) 0.4 x10^3/uL (0.0-0.7) Basophils # (Auto) 0.0 x10^3/uL (0.0-0.2) 0.1 x10^3/uL (0.0-0.2) Sodium Level 136 mmol/L (136-145) 138 mmol/L (136-145) Potassium Level 3.4 mmol/L (3.5-5.1) 3.3 mmol/L (3.5-5.1) Chloride Level 100 mmol/L (98-107) 103 mmol/L (98-107) Carbon Dioxide Level 30 mmol/L (21-32) 30 mmol/L (21-32) Anion Gap 6 (6-14) 5 (6-14) Blood Urea Nitrogen 13 mg/dL (7-20) 15 mg/dL (7-20) Creatinine 0.7 mg/dL (0.6-1.0) 0.8 mg/dL (0.6-1.0) Estimated GFR (Cockcroft-Gault) 102.9 88.2 BUN/Creatinine Ratio 19 (6-20) 19 (6-20) Glucose Level 113 mg/dL (70-99) 108 mg/dL (70-99) Lactic Acid Level 1.2 mmol/L (0.4-2.0) Calcium Level 9.4 mg/dL (8.5-10.1) 8.3 mg/dL (8.5-10.1) Total Bilirubin 0.5 mg/dL (0.2-1.0) 0.5 mg/dL (0.2-1.0) Aspartate Amino Transf (AST/SGOT) 20 U/L (15-37) 23 U/L (15-37) Alanine Aminotransferase (ALT/SGPT) 21 U/L (14-59) 21 U/L (14-59) Alkaline Phosphatase 337 U/L (46-116) 292 U/L (46-116) Total Protein 9.5 g/dL (6.4-8.2) 8.0 g/dL (6.4-8.2) Albumin 3.5 g/dL (3.4-5.0) 2.9 g/dL (3.4-5.0) Albumin/Globulin Ratio 0.6 (1.0-1.7) 0.6 (1.0-1.7) Lipase 86 U/L (73-393) Objective Assessment Fever prior to admit Abdominal pain EC fistula Entero vesicular fistula Short gut syndrome, on chronic TPN Plan Plan of Care Zyvox and Zosyn f/u cultures Maintain hydration Thank you Attending Co-Sign The patient was seen and interviewed as well as examined at the bedside. The chart was reviewed. The case was discussed. Agree with the plan of care. MAYELIN COLEMAN APRN Jan 09, 2017 12:46 JOSSY TATUM MD Jan 09, 2017 13:08
[2017-01-09] MEDS: ONDANSETRON PF 4 MG/2 ML VIAL. IV PRN (12:55)
[2017-01-09 15:00] VITALS: BP 154/76
[2017-01-09 19:00] VITALS: BP 140/55
[2017-01-09] MEDS ORDERED: AMINO ACID IV SCH ×9 (22:00)
[2017-01-09] MEDS ORDERED: DEXTROSE 70% IV SCH ×9 (22:00)
[2017-01-09] MEDS ORDERED: TOTAL PARENTERAL NUTRITION IV SCH ×9 (22:00)
[2017-01-09] MEDS ORDERED: [UNRECOGNIZED DRUG - OTHER] IV SCH ×9 (22:00)
[2017-01-09 23:00] VITALS: BP 135/82
[2017-01-09] MEDS: ZOLPIDEM 5 MG TABLET. PO PRN (23:20)
[2017-01-10] MEDS: HYDROmorphone 2 MG/ML VIAL IV PRN ×3 (02:37→21:51)
[2017-01-10 03:00] VITALS: BP 161/76
[2017-01-10] MEDS: PIPERACILLIN/TAZOBACTAM 3.375 GM in IV NORMAL SALINE 50ML 50 ML IV SCH ×4 (06:21→23:05)
[2017-01-10 07:00] VITALS: BP 131/74
[2017-01-10] MEDS: amLODIPine BESYLATE 5 MG TABLET PO SCH (09:00)
[2017-01-10] MEDS: ZINC OXIDE 20% TOPICAL OINTMENT 28GM TUBE. TP SCH ×2 (09:00→21:41)
[2017-01-10] MEDS: LIDOCAINE 5% TOPICAL OINTMENT 35GM TUBE. TP SCH ×2 (09:00→21:41)
[2017-01-10] MEDS: FAMOTIDINE 20 MG TABLET. PO SCH ×2 (09:00→21:43)
--- NOTE | 2017-01-10 09:41 | PDOC ---
PROGRESS NOTES Subjective Subjective feels better. urine culture growing GNR but has enterovesical fistula. blood cultures pending. afebrile. lab reviewed. WBC okay. potassium low. will give iv KCl today and increased KCL in TPN yesterday.vomited yesterday. CXR and KUB negative. Objective Objective Vital Signs Date Time Temp Pulse Resp B/P (MAP) Pulse Ox O2 Delivery O2 Flow Rate FiO2 01/10/17 09:00 67 131/74 01/10/17 07:00 97.7 18 100 Room Air 97.7 Intake and Output 01/10/17 07:00 Intake Total 1140 ml Output Total 400 ml Balance 740 ml Intake Oral 1140 ml Output Urine Total 400 ml # Voids 1 Physical Exam Abdomen: Soft, No tenderness Heart: Regular rate, Normal S1, Normal S2 Extremities: No edema General: Alert HEENT: Atraumatic Lungs: Clear to auscultation Neuro: Normal speech Psych/Mental Status: Mental status NL Skin: No rashes Assessment Assessment Problems1. Fever.improved 2. Enterocutaneous fistula. 3. Enterovesical fistula. 4. Hypokalemia. 5. Nausea and vomiting. 6. Abdominal pain. 7. Hypertension. 8. Anemia of chronic disease. GNR in urine with enterovesical fistula Medical Problems: (1) Fever Status: Acute (2) Fistula Status: Acute (3) Intractable abdominal pain Status: Acute Plan Plan of Care continue zyvox and zosyn continue TPN iv KCL today IV zofran prn lab tomorrow Comment Review of Relevant I have reviewed the following items lucila (where applicable) has been applied. Labs Laboratory Tests Test 01/08/17 19:30 01/08/17 19:50 01/09/17 05:13 01/09/17 05:20 Urine Collection Type Unknown Urine Color Yellow Urine Clarity Cloudy Urine pH 7.5 Urine Specific [place] 1.015 Urine Protein 30 mg/dL (NEG-TRACE) Urine Glucose (UA) Negative mg/dL (NEG) Urine Ketones (Stick) Negative mg/dL (NEG) Urine Blood Small (NEG) Urine Nitrite Positive (NEG) Urine Bilirubin Negative (NEG) Urine Urobilinogen Dipstick 0.2 mg/dL (0.2 mg/dL) Urine Leukocyte Esterase Large (NEG) Urine RBC 6-10 /HPF (0-2) Urine WBC >40 /HPF (0-4) Urine Squamous Epithelial Cells Mod /LPF Urine Bacteria Many /HPF (0-FEW) White Blood Count 4.4 x10^3/uL (4.0-11.0) 4.8 x10^3/uL (4.0-11.0) Red Blood Count 4.18 x10^6/uL (3.50-5.40) 3.72 x10^6/uL (3.50-5.40) Hemoglobin 11.6 g/dL (12.0-15.5) 10.2 g/dL (12.0-15.5) Hematocrit 35.0 % (36.0-47.0) 31.0 % (36.0-47.0) Mean Corpuscular Volume 84 fL (79-100) 83 fL (79-100) Mean Corpuscular Hemoglobin 28 pg (25-35) 27 pg (25-35) Mean Corpuscular Hemoglobin Concent 33 g/dL (31-37) 33 g/dL (31-37) Red Cell Distribution Width 16.8 % (11.5-14.5) 17.0 % (11.5-14.5) Platelet Count 350 x10^3/uL (140-400) 292 x10^3/uL (140-400) Neutrophils (%) (Auto) 55 % (31-73) 45 % (31-73) Lymphocytes (%) (Auto) 27 % (24-48) 31 % (24-48) Monocytes (%) (Auto) 14 % (0-9) 14 % (0-9) Eosinophils (%) (Auto) 3 % (0-3) 9 % (0-3) Basophils (%) (Auto) 1 % (0-3) 1 % (0-3) Neutrophils # (Auto) 2.4 x10^3uL (1.8-7.7) 2.2 x10^3uL (1.8-7.7) Lymphocytes # (Auto) 1.2 x10^3/uL (1.0-4.8) 1.5 x10^3/uL (1.0-4.8) Monocytes # (Auto) 0.6 x10^3/uL (0.0-1.1) 0.7 x10^3/uL (0.0-1.1) Eosinophils # (Auto) 0.1 x10^3/uL (0.0-0.7) 0.4 x10^3/uL (0.0-0.7) Basophils # (Auto) 0.0 x10^3/uL (0.0-0.2) 0.1 x10^3/uL (0.0-0.2) Sodium Level 136 mmol/L (136-145) 138 mmol/L (136-145) Potassium Level 3.4 mmol/L (3.5-5.1) 3.3 mmol/L (3.5-5.1) Chloride Level 100 mmol/L (98-107) 103 mmol/L (98-107) Carbon Dioxide Level 30 mmol/L (21-32) 30 mmol/L (21-32) Anion Gap 6 (6-14) 5 (6-14) Blood Urea Nitrogen 13 mg/dL (7-20) 15 mg/dL (7-20) Creatinine 0.7 mg/dL (0.6-1.0) 0.8 mg/dL (0.6-1.0) Estimated GFR (Cockcroft-Gault) 102.9 88.2 BUN/Creatinine Ratio 19 (6-20) 19 (6-20) Glucose Level 113 mg/dL (70-99) 108 mg/dL (70-99) Lactic Acid Level 1.2 mmol/L (0.4-2.0) Calcium Level 9.4 mg/dL (8.5-10.1) 8.3 mg/dL (8.5-10.1) Total Bilirubin 0.5 mg/dL (0.2-1.0) 0.5 mg/dL (0.2-1.0) Aspartate Amino Transf (AST/SGOT) 20 U/L (15-37) 23 U/L (15-37) Alanine Aminotransferase (ALT/SGPT) 21 U/L (14-59) 21 U/L (14-59) Alkaline Phosphatase 337 U/L (46-116) 292 U/L (46-116) Total Protein 9.5 g/dL (6.4-8.2) 8.0 g/dL (6.4-8.2) Albumin 3.5 g/dL (3.4-5.0) 2.9 g/dL (3.4-5.0) Albumin/Globulin Ratio 0.6 (1.0-1.7) 0.6 (1.0-1.7) Lipase 86 U/L (73-393) Nasal Screen MRSA (PCR) Negative (Negative) Microbiology 01/08/17 Urine Culture - Preliminary, Resulted 01/08/17 Urine Culture Result 1 (ROYA) - Preliminary, Resulted Medications Current Medications Hydromorphone HCl (Dilaudid) 1 mg 1X ONCE IV Last administered on 01/08/17 19 :54; Start 01/08/17 at 20:15; Stop 01/08/17 at 20:16; Status DC Ondansetron HCl (Zofran) 4 mg 1X ONCE IV Last administered on 01/08/17 19:54 ; Start 01/08/17 at 20:15; Stop 01/08/17 at 20:16; Status DC Sodium Chloride 500 ml @ 500 mls/hr 1X ONCE IV Last administered on 19:55; Start 01/08/17 at 19:45; Stop 01/08/17 at 20:44; Status DC Hydromorphone HCl (Dilaudid) 1 mg 1X ONCE IV Last administered on 01/08/17 20 :52; Start 01/08/17 at 21:15; Stop 01/08/17 at 21:16; Status DC Hydromorphone HCl (Dilaudid) 1 mg 1X ONCE IV ; Start 01/08/17 at 21:30; Stop at 21:31; Status DC Ondansetron HCl (Zofran) 4 mg PRN Q6HRS PRN IV NAUSEA/VOMITING; Start 01/08/17 at 21:00; Stop 01/09/17 at 08:56; Status DC Linezolid 300 ml @ 300 mls/hr Q12HR IV Last administered on 01/10/17 09:00; Start 01/09/17 at 09:00 Piperacillin Sod/ Tazobactam Sod 3.375 gm/Sodium Chloride 50 ml @ 100 mls/hr Q6HRS IV Last administered on 01/10/17 06:21; Start 01/09/17 at 00:00 Hydromorphone HCl (Dilaudid) 4 mg PRN Q6HRS PRN IV pain Last administered on 02:37; Start 01/08/17 at 21:00 Potassium Chloride/Dextrose/ Sod Cl 1,000 ml @ 125 mls/hr 1X ONCE IV Last administered on 01/08/17 21:30; Start 01/08/17 at 21:45; Stop 01/09/17 at 05:44 ; Status DC Linezolid 300 ml @ 300 mls/hr 1X ONCE IV Last administered on 01/08/17 21:32 ; Start 01/08/17 at 21:45; Stop 01/08/17 at 22:44; Status DC Piperacillin Sod/ Tazobactam Sod 3.375 gm/Sodium Chloride 50 ml @ 100 mls/hr 1X ONCE IV Last administered on 01/08/17 21:34; Start 01/08/17 at 21:45; Stop 01/08/17 at 22:14; Status DC Potassium Chloride/Dextrose/ Sod Cl 1,000 ml @ 100 mls/hr Q10H IV Last administered on 01/09/17 09:14; Start 01/09/17 at 08:45; Stop 01/09/17 at 21:59 ; Status DC Ondansetron HCl (Zofran) 4 mg PRN Q6HRS PRN IV NAUSEA/VOMITING Last administered on 01/09/17 12:55; Start 01/09/17 at 08:45 Potassium Chloride 50 ml @ 50 mls/hr 1X ONCE IV Last administered on 09:30; Start 01/09/17 at 09:00; Stop 01/09/17 at 09:59; Status DC Famotidine (Pepcid) 20 mg BID PO Last administered on 01/10/17 09:00; Start at 09:00 Zinc Oxide 1 sang BID TP Last administered on 01/10/17 09:00; Start 01/09/17 at 09:00 Lidocaine (Xylocaine) 1 sang BID TP Last administered on 01/10/17 09:00; Start 01/09/17 at 09:00 Lorazepam (Ativan) 0.5 mg PRN Q6HRS PRN PO ANXIETY / AGITATION; Start 01/09/17 at 08:45 Acetaminophen (Tylenol) 650 mg PRN Q6HRS PRN PO MILD PAIN / TEMP; Start at 08:45 Amlodipine Besylate (Norvasc) 5 mg DAILY PO Last administered on 01/10/17 09: 00; Start 01/09/17 at 09:00 Zolpidem Tartrate (Ambien) 5 mg PRN QHS PRN PO INSOMNIA Last administered on 23:20; Start 01/09/17 at 09:15 Sodium Chloride 150 meq/Sodium Acetate 60 meq/ Potassium Chloride 100 meq/ Magnesium Sulfate 20 meq/ Multivitamins 10 ml/Chromium/ Copper/Manganese/ Seleni /Zn 1 ml/ Total Parenteral Nutrition/Amino Acids/Dextrose/ Fat Emulsion Intravenous 1,920 ml @ 80 mls/hr TPN CONT IV Last administered on 01/09/17 22:33; Start 01/09/17 at 22:00; Stop 01/10/17 at 21:59 Info 1 each PRN DAILY PRN MC SEE COMMENTS Last administered on 01/09/17 11:14 ; Start 01/09/17 at 11:15 Active Scripts Active Sertraline Hcl 50 Mg Tablet 50 Mg PO DAILY 30 Days Famotidine 20 Mg Tablet 20 Mg PO BID 60 Days Lidocaine 35.44 Gm Oint...g. 1 Sang TP BID Reported Zofran Odt (Ondansetron) 4 Mg Tab.rapdis 1 Tab SL PRN Q8HRS PRN Zinc Oxide 56.7 Gm Oint...g. 56.7 Gm TP PRN BID Dilaudid (Hydromorphone Hcl) 2 Mg Tablet 1 Tab PO PRN QID PRN Amlodipine Besylate 5 Mg Tablet 5 Mg PO DAILY Lorazepam 0.5 Mg Tablet 0.5 Mg PO Q6HRS PRN Vitals/I & O Vital Sign - Last 24 Hours 01/09/17 01/09/17 01/09/17 01/09/17 11:00 15:00 19:00 19:50 Temp 97.7 98.0 97.7 97.7 98.0 97.7 Pulse 80 58 59 Resp 20 16 18 B/P (MAP) 120/65 (83) 154/76 (102) 140/55 (83) Pulse Ox 94 100 99 O2 Delivery Room Air Room Air Room Air 7/2901/09/17 01/10/17 01/10/17 20:20 23:00 03:00 07:00 Temp 97.6 97.6 97.7 97.6 97.6 97.7 Pulse 87 77 67 Resp 16 20 18 18 B/P (MAP) 135/82 (99) 161/76 (104) 131/74 (93) Pulse Ox 90 100 100 O2 Delivery Room Air 01/10/17 09:00 Pulse 67 B/P (MAP) 131/74 Intake and Output 01/09/17 01/09/17 01/10/17 15:00 23:00 07:00 Intake Total 180 ml 960 ml Output Total 400 ml Balance 180 ml 560 ml BENITA LUTZ MD Jan 10, 2017 09:41
[2017-01-10] MEDS ORDERED: POTASSIUM CHLORIDE 20MEQ 50 ML IV ONE (10:00)
--- NOTE | 2017-01-10 10:59 | PDOC ---
Infectious Disease Note Subjective Subjective Feeling alright Abdominal pain controlled with pain meds No further fevers since admission ROS ROS GEN: Denies chills, sweats CV: Denies chest pain RESP: Denies shortness of air, cough GI: Denies n/v/d Vital Sign Vital Signs Vital Signs Date Time Temp Pulse Resp B/P (MAP) Pulse Ox O2 Delivery O2 Flow Rate FiO2 01/10/17 09:00 67 131/74 01/10/17 07:00 97.7 18 100 Room Air 97.7 Physical Exam PHYSICAL EXAM GENERAL: Alert, smiling, knitting LUNGS: Clear HEART: S1S2 ABD: Soft, NT, EC fistula with mild skin excoriation EXT: BLE edema, no cyanosis LAYOUT DESIGNER: Alert, oriented x 3, no focal neurologic deficit SKIN: No rash PICC clean Labs Micro URINE CULTURE RES 1 Preliminary Gram negative rods Objective Assessment Fever prior to admit Abdominal pain better EC fistula. GNR Entero vesicular fistula Short gut syndrome, on chronic TPN Plan Plan of Care Zyvox and Zosyn f/u cultures Maintain hydration Attending Co-Sign The patient was seen and interviewed as well as examined at the bedside. The chart was reviewed. The case was discussed. Agree with the plan of care. MAYELIN COLEMAN APRN Jan 10, 2017 10:59 JOSSY TATUM MD Jan 10, 2017 11:42
[2017-01-10 11:00] VITALS: BP 122/58
[2017-01-10 15:00] VITALS: BP 144/65
[2017-01-10 19:00] VITALS: BP 157/85
[2017-01-10] MEDS ORDERED: [UNRECOGNIZED DRUG - OTHER] IV SCH ×9 (22:00)
[2017-01-10] MEDS ORDERED: AMINO ACID IV SCH ×9 (22:00)
[2017-01-10] MEDS ORDERED: DEXTROSE 70% IV SCH ×9 (22:00)
[2017-01-10] MEDS ORDERED: TOTAL PARENTERAL NUTRITION IV SCH ×9 (22:00)
[2017-01-10 23:00] VITALS: BP 161/98
[2017-01-10] MEDS: ZOLPIDEM 5 MG TABLET. PO PRN (23:05)
[2017-01-11] MEDS: PIPERACILLIN/TAZOBACTAM 3.375 GM in IV NORMAL SALINE 50ML 50 ML IV SCH (06:12)
[2017-01-11] MEDS: HYDROmorphone 2 MG/ML VIAL IV PRN ×3 (06:13→18:18)
[2017-01-11 06:22] LABS: BASO # 0.1 x10^3/uL (0.0-0.2); BASO % 1 % (0-3); EOS % 7 % (0-3); HEMATOCRIT 25.7 % (36.0-47.0); HEMOGLOBIN 8.5 g/dL (12.0-15.5); LYMPH # 1.3 x10^3/uL (1.0-4.8); LYMPH % 22 % (24-48); MEAN CORPUSCULAR HEMOGLOBIN 28 pg (25-35); MEAN CORPUSCULAR HGB CONC 33 g/dL (31-37); MEAN CORPUSCULAR VOLUME 85 fL (79-100); MONO % 13 % (0-9); NEUT % 57 % (31-73); PLATELET COUNT 250 x10^3/uL (140-400); RED BLOOD COUNT 3.03 x10^6/uL (3.50-5.40); RED CELL DISTRIBUTION WIDTH 16.8 % (11.5-14.5)
[2017-01-11 06:42] LABS: CALCIUM 8.2 mg/dL (8.5-10.1); CREATININE 0.8 mg/dL (0.6-1.0); GFR 88.2; MAGNESIUM 2.3 mg/dL (1.8-2.4)
[2017-01-11 07:00] VITALS: BP 123/77
--- NOTE | 2017-01-11 08:31 | PDOC ---
Infectious Disease Note Subjective Subjective feeling good, no complaints ROS ROS GEN: Denies fevers, chills, sweats HEENT: Denies blurred vision, sore throat CV: Denies chest pain RESP: Denies shortness of air, cough GI: Denies n/v/d NEURO: Denies confusion, dizziness MSK: Denies weakness, joint pain/swelling Vital Sign Vital Signs Vital Signs Date Time Temp Pulse Resp B/P (MAP) Pulse Ox O2 Delivery O2 Flow Rate FiO2 01/11/17 06:43 20 Room Air 01/11/17 03:00 01/10/17 23:00 98.1 87 100 98.1 Physical Exam PHYSICAL EXAM GENERAL: NAD, Alert HEENT: PERRL, OC/OP NECK: Supple, no JVD, no LN LUNGS: Clear HEART: S1S2, no gallop, no murmur ABD: Soft, NT, no organomegaly, no rebound,, EC fistula EXT: No edema, no cyanosis SUBCONTRACT MANAGER: Alert, oriented x 3, no focal neurologic deficit SKIN: No rash IV: ok Labs Lab Laboratory Tests Test 01/11/17 06:00 White Blood Count 6.0 x10^3/uL (4.0-11.0) Red Blood Count 3.03 x10^6/uL (3.50-5.40) Hemoglobin 8.5 g/dL (12.0-15.5) Hematocrit 25.7 % (36.0-47.0) Mean Corpuscular Volume 85 fL (79-100) Mean Corpuscular Hemoglobin 28 pg (25-35) Mean Corpuscular Hemoglobin Concent 33 g/dL (31-37) Red Cell Distribution Width 16.8 % (11.5-14.5) Platelet Count 250 x10^3/uL (140-400) Neutrophils (%) (Auto) 57 % (31-73) Lymphocytes (%) (Auto) 22 % (24-48) Monocytes (%) (Auto) 13 % (0-9) Eosinophils (%) (Auto) 7 % (0-3) Basophils (%) (Auto) 1 % (0-3) Neutrophils # (Auto) 3.4 x10^3uL (1.8-7.7) Lymphocytes # (Auto) 1.3 x10^3/uL (1.0-4.8) Monocytes # (Auto) 0.8 x10^3/uL (0.0-1.1) Eosinophils # (Auto) 0.4 x10^3/uL (0.0-0.7) Basophils # (Auto) 0.1 x10^3/uL (0.0-0.2) Sodium Level 137 mmol/L (136-145) Potassium Level 5.0 mmol/L (3.5-5.1) Chloride Level 107 mmol/L (98-107) Carbon Dioxide Level 27 mmol/L (21-32) Anion Gap 3 (6-14) Blood Urea Nitrogen 24 mg/dL (7-20) Creatinine 0.8 mg/dL (0.6-1.0) Estimated GFR (Cockcroft-Gault) 88.2 Glucose Level 112 mg/dL (70-99) Calcium Level 8.2 mg/dL (8.5-10.1) Phosphorus Level 2.8 mg/dL (2.6-4.7) Magnesium Level 2.3 mg/dL (1.8-2.4) Objective Assessment Fever prior to admit Abdominal pain better EC fistula. GNR Entero vesicular fistula Short gut syndrome, on chronic TPN Plan Plan of Care d/c Zyvox and Zosyn f/u cultures Maintain hydration JOSSY TATUM MD Jan 11, 2017 08:31
[2017-01-11] MEDS: LIDOCAINE 5% TOPICAL OINTMENT 35GM TUBE. TP SCH ×3 (09:00→20:56)
[2017-01-11] MEDS: ZINC OXIDE 20% TOPICAL OINTMENT 28GM TUBE. TP SCH ×3 (09:00→20:57)
--- NOTE | 2017-01-11 09:10 | PDOC ---
PROGRESS NOTES Subjective Subjective feels better. bp high yesterday and will increase amlodipine. afebrile. blood cultures not done in ER. discussed with dr. red david iv antibiotics to be discontinued and watch for fever. urine culture grew E. coli but has enterovesical fistula and will always have bacteria in urine which is contaminated.. lab reviewed. potassium 5.0 and spoke with pharmacist and will d/ c TPN and start iv fluids without kcl untili TPN resumed with less kcl Objective Objective Vital Signs Date Time Temp Pulse Resp B/P (MAP) Pulse Ox O2 Delivery O2 Flow Rate FiO2 01/11/17 06:43 20 Room Air 01/11/17 03:00 01/10/17 23:00 98.1 87 100 98.1 Intake and Output 01/11/17 07:00 Intake Total 3920 ml Output Total 600 ml Balance 3320 ml Intake Oral 1620 ml IV Total 2300 ml Output Urine Total 600 ml # Voids 2 Physical Exam Abdomen: Soft Heart: Regular rate, Normal S1, Normal S2 Extremities: No edema General: Alert HEENT: Atraumatic Lungs: Clear to auscultation Neuro: Normal speech Psych/Mental Status: Mental status NL Skin: No rashes Assessment Assessment Problems. Fever resolved 2. Enterocutaneous fistula. 3. Enterovesical fistula. 4. Hypokalemia.resolved 5. Nausea and vomiting.resolved 6. Abdominal pain.improved 7. Hypertension. 8. Anemia of chronic disease. e. coli in urine with enterovesical fistula. not treating Medical Problems: (1) Fever Status: Acute (2) Fistula Status: Acute (3) Intractable abdominal pain Status: Acute Plan Plan of Care d/c iv antibiotics monitor temperature and blood pressure increase amlodipine lab tomorrow d/c TPN and resume TPN with less KCL later today iv fluids . d/c iv fluids when TPN resumed Comment Review of Relevant I have reviewed the following items lucila (where applicable) has been applied. Labs Laboratory Tests Test 01/11/17 06:00 White Blood Count 6.0 x10^3/uL (4.0-11.0) Red Blood Count 3.03 x10^6/uL (3.50-5.40) Hemoglobin 8.5 g/dL (12.0-15.5) Hematocrit 25.7 % (36.0-47.0) Mean Corpuscular Volume 85 fL (79-100) Mean Corpuscular Hemoglobin 28 pg (25-35) Mean Corpuscular Hemoglobin Concent 33 g/dL (31-37) Red Cell Distribution Width 16.8 % (11.5-14.5) Platelet Count 250 x10^3/uL (140-400) Neutrophils (%) (Auto) 57 % (31-73) Lymphocytes (%) (Auto) 22 % (24-48) Monocytes (%) (Auto) 13 % (0-9) Eosinophils (%) (Auto) 7 % (0-3) Basophils (%) (Auto) 1 % (0-3) Neutrophils # (Auto) 3.4 x10^3uL (1.8-7.7) Lymphocytes # (Auto) 1.3 x10^3/uL (1.0-4.8) Monocytes # (Auto) 0.8 x10^3/uL (0.0-1.1) Eosinophils # (Auto) 0.4 x10^3/uL (0.0-0.7) Basophils # (Auto) 0.1 x10^3/uL (0.0-0.2) Sodium Level 137 mmol/L (136-145) Potassium Level 5.0 mmol/L (3.5-5.1) Chloride Level 107 mmol/L (98-107) Carbon Dioxide Level 27 mmol/L (21-32) Anion Gap 3 (6-14) Blood Urea Nitrogen 24 mg/dL (7-20) Creatinine 0.8 mg/dL (0.6-1.0) Estimated GFR (Cockcroft-Gault) 88.2 Glucose Level 112 mg/dL (70-99) Calcium Level 8.2 mg/dL (8.5-10.1) Phosphorus Level 2.8 mg/dL (2.6-4.7) Magnesium Level 2.3 mg/dL (1.8-2.4) Laboratory Tests Test 01/11/17 06:00 White Blood Count 6.0 x10^3/uL (4.0-11.0) Red Blood Count 3.03 x10^6/uL (3.50-5.40) Hemoglobin 8.5 g/dL (12.0-15.5) Hematocrit 25.7 % (36.0-47.0) Mean Corpuscular Volume 85 fL (79-100) Mean Corpuscular Hemoglobin 28 pg (25-35) Mean Corpuscular Hemoglobin Concent 33 g/dL (31-37) Red Cell Distribution Width 16.8 % (11.5-14.5) Platelet Count 250 x10^3/uL (140-400) Neutrophils (%) (Auto) 57 % (31-73) Lymphocytes (%) (Auto) 22 % (24-48) Monocytes (%) (Auto) 13 % (0-9) Eosinophils (%) (Auto) 7 % (0-3) Basophils (%) (Auto) 1 % (0-3) Neutrophils # (Auto) 3.4 x10^3uL (1.8-7.7) Lymphocytes # (Auto) 1.3 x10^3/uL (1.0-4.8) Monocytes # (Auto) 0.8 x10^3/uL (0.0-1.1) Eosinophils # (Auto) 0.4 x10^3/uL (0.0-0.7) Basophils # (Auto) 0.1 x10^3/uL (0.0-0.2) Sodium Level 137 mmol/L (136-145) Potassium Level 5.0 mmol/L (3.5-5.1) Chloride Level 107 mmol/L (98-107) Carbon Dioxide Level 27 mmol/L (21-32) Anion Gap 3 (6-14) Blood Urea Nitrogen 24 mg/dL (7-20) Creatinine 0.8 mg/dL (0.6-1.0) Estimated GFR (Cockcroft-Gault) 88.2 Glucose Level 112 mg/dL (70-99) Calcium Level 8.2 mg/dL (8.5-10.1) Phosphorus Level 2.8 mg/dL (2.6-4.7) Magnesium Level 2.3 mg/dL (1.8-2.4) Microbiology 01/08/17 Urine Culture - Final, Complete 01/08/17 Urine Culture Result 1 (ROYA) - Final, Complete 01/08/17 Antimicrobic Susceptibility - Final, Complete Medications Current Medications Hydromorphone HCl (Dilaudid) 1 mg 1X ONCE IV Last administered on 01/08/17t 19 :54; Start 01/08/17 at 20:15; Stop 01/08/17 at 20:16; Status DC Ondansetron HCl (Zofran) 4 mg 1X ONCE IV Last administered on 01/08/17 19:54 ; Start 01/08/17 at 20:15; Stop 01/08/17 at 20:16; Status DC Sodium Chloride 500 ml @ 500 mls/hr 1X ONCE IV Last administered on 19:55; Start 01/08/17 at 19:45; Stop 01/08/17 at 20:44; Status DC Hydromorphone HCl (Dilaudid) 1 mg 1X ONCE IV Last administered on 01/08/17 20 :52; Start 01/08/17 at 21:15; Stop 01/08/17 at 21:16; Status DC Hydromorphone HCl (Dilaudid) 1 mg 1X ONCE IV ; Start 01/08/17 at 21:30; Stop at 21:31; Status DC Ondansetron HCl (Zofran) 4 mg PRN Q6HRS PRN IV NAUSEA/VOMITING; Start 01/08/17 at 21:00; Stop 01/09/17 at 08:56; Status DC Linezolid 300 ml @ 300 mls/hr Q12HR IV Last administered on 01/10/17 21:43; Start 01/09/17 at 09:00; Stop 01/11/17 at 08:32; Status DC Piperacillin Sod/ Tazobactam Sod 3.375 gm/Sodium Chloride 50 ml @ 100 mls/hr Q6HRS IV Last administered on 01/11/17 06:12; Start 01/09/17 at 00:00; Stop at 08:32; Status DC Hydromorphone HCl (Dilaudid) 4 mg PRN Q6HRS PRN IV pain Last administered on 06:13; Start 01/08/17 at 21:00 Potassium Chloride/Dextrose/ Sod Cl 1,000 ml @ 125 mls/hr 1X ONCE IV Last administered on 01/08/17 21:30; Start 01/08/17 at 21:45; Stop 01/09/17 at 05:44 ; Status DC Linezolid 300 ml @ 300 mls/hr 1X ONCE IV Last administered on 01/08/17 21:32 ; Start 01/08/17 at 21:45; Stop 01/08/17 at 22:44; Status DC Piperacillin Sod/ Tazobactam Sod 3.375 gm/Sodium Chloride 50 ml @ 100 mls/hr 1X ONCE IV Last administered on 01/08/17 21:34; Start 01/08/17 at 21:45; Stop 01/08/17 at 22:14; Status DC Potassium Chloride/Dextrose/ Sod Cl 1,000 ml @ 100 mls/hr Q10H IV Last administered on 01/09/17 09:14; Start 01/09/17 at 08:45; Stop 01/09/17 at 21:59 ; Status DC Ondansetron HCl (Zofran) 4 mg PRN Q6HRS PRN IV NAUSEA/VOMITING Last administered on 01/09/17 12:55; Start 01/09/17 at 08:45 Potassium Chloride 50 ml @ 50 mls/hr 1X ONCE IV Last administered on 09:30; Start 01/09/17 at 09:00; Stop 01/09/17 at 09:59; Status DC Famotidine (Pepcid) 20 mg BID PO Last administered on 01/10/17 21:43; Start at 09:00 Zinc Oxide 1 sang BID TP Last administered on 01/10/17 21:41; Start 01/09/17 at 09:00 Lidocaine (Xylocaine) 1 sang BID TP Last administered on 01/10/17 21:41; Start 01/09/17 at 09:00 Lorazepam (Ativan) 0.5 mg PRN Q6HRS PRN PO ANXIETY / AGITATION; Start 01/09/17 at 08:45 Acetaminophen (Tylenol) 650 mg PRN Q6HRS PRN PO MILD PAIN / TEMP; Start at 08:45 Amlodipine Besylate (Norvasc) 5 mg DAILY PO Last administered on 01/10/17 09: 00; Start 01/09/17 at 09:00 Zolpidem Tartrate (Ambien) 5 mg PRN QHS PRN PO INSOMNIA Last administered on 23:05; Start 01/09/17 at 09:15 Sodium Chloride 150 meq/Sodium Acetate 60 meq/ Potassium Chloride 100 meq/ Magnesium Sulfate 20 meq/ Multivitamins 10 ml/Chromium/ Copper/Manganese/ Seleni /Zn 1 ml/ Total Parenteral Nutrition/Amino Acids/Dextrose/ Fat Emulsion Intravenous 1,920 ml @ 80 mls/hr TPN CONT IV Last administered on 01/09/17 22:33; Start 01/09/17 at 22:00; Stop 01/10/17 at 21:59; Status DC Info 1 each PRN DAILY PRN MC SEE COMMENTS Last administered on 01/09/17 11:14 ; Start 01/09/17 at 11:15 Potassium Chloride 50 ml @ 25 mls/hr 1X ONCE IV Last administered on 13:11; Start 01/10/17 at 10:00; Stop 01/10/17 at 11:59; Status DC Sodium Chloride 150 meq/Sodium Acetate 60 meq/ Potassium Chloride 100 meq/ Magnesium Sulfate 20 meq/ Multivitamins 10 ml/Chromium/ Copper/Manganese/ Seleni /Zn 1 ml/ Total Parenteral Nutrition/Amino Acids/Dextrose/ Fat Emulsion Intravenous 1,920 ml @ 80 mls/hr TPN CONT IV Last administered on 01/10/17 21:46; Start 01/10/17 at 22:00; Stop 01/11/17 at 21:59 Active Scripts Active Sertraline Hcl 50 Mg Tablet 50 Mg PO DAILY 30 Days Famotidine 20 Mg Tablet 20 Mg PO BID 60 Days Lidocaine 35.44 Gm Oint...g. 1 Sang TP BID Reported Zofran Odt (Ondansetron) 4 Mg Tab.rapdis 1 Tab SL PRN Q8HRS PRN Zinc Oxide 56.7 Gm Oint...g. 56.7 Gm TP PRN BID Dilaudid (Hydromorphone Hcl) 2 Mg Tablet 1 Tab PO PRN QID PRN Amlodipine Besylate 5 Mg Tablet 5 Mg PO DAILY Lorazepam 0.5 Mg Tablet 0.5 Mg PO Q6HRS PRN Vitals/I & O Vital Sign - Last 24 Hours 01/10/17 01/10/17 01/10/17 01/10/17 11:00 15:00 16:10 19:00 Temp 97.9 97.5 98.3 97.9 97.5 98.3 Pulse 79 97 99 Resp 18 18 20 18 B/P (MAP) 122/58 (79) 144/65 (91) 157/85 (109) Pulse Ox 97 96 92 100 O2 Delivery Room Air Room Air Room Air 01/10/17 01/10/17 01/10/17 01/11/17 20:30 21:51 23:00 03:00 Temp 98.1 98.1 Pulse 87 Resp 20 18 B/P (MAP) 161/98 (119) Pulse Ox 100 O2 Delivery Room Air Room Air 01/11/17 01/11/17 06:13 06:43 Resp 20 20 O2 Delivery Room Air Room Air Intake and Output 01/10/17 01/10/17 01/11/17 15:00 23:00 07:00 Intake Total 480 ml 2910 ml 530 ml Output Total 300 ml 300 ml Balance 180 ml 2910 ml 230 ml BENITA LUTZ MD Jan 11, 2017 09:09
[2017-01-11] MEDS ORDERED: TPN PER PHARMACY MC PRN (09:15)
[2017-01-11] MEDS: FAMOTIDINE 20 MG TABLET. PO SCH ×2 (09:24→20:54)
[2017-01-11] MEDS: IV DEXTROSE 5% - 0.9 % NACL 1,000 ML IV SCH ×2 (09:25→21:30)
[2017-01-11 11:00] VITALS: BP 113/66
[2017-01-11] MEDS: ONDANSETRON PF 4 MG/2 ML VIAL. IV PRN (11:50)
[2017-01-11] MEDS: TPN PER PHARMACY MC PRN (12:48)
[2017-01-11 15:00] VITALS: BP 100/59
[2017-01-11 19:00] VITALS: BP 158/86
[2017-01-11] MEDS ORDERED: AMINO ACID IV SCH ×9 (22:00)
[2017-01-11] MEDS ORDERED: TOTAL PARENTERAL NUTRITION IV SCH ×9 (22:00)
[2017-01-11] MEDS ORDERED: [UNRECOGNIZED DRUG - OTHER] IV SCH ×9 (22:00)
[2017-01-11] MEDS ORDERED: DEXTROSE 70% IV SCH ×9 (22:00)
[2017-01-11 23:00] VITALS: BP 120/60
[2017-01-12] MEDS: HYDROmorphone 2 MG/ML VIAL IV PRN ×4 (00:26→18:25)
[2017-01-12 04:06] LABS: BASO # 0.1 x10^3/uL (0.0-0.2); BASO % 1 % (0-3); EOS % 9 % (0-3); HEMATOCRIT 29.4 % (36.0-47.0); HEMOGLOBIN 9.4 g/dL (12.0-15.5); LYMPH # 1.8 x10^3/uL (1.0-4.8); LYMPH % 27 % (24-48); MEAN CORPUSCULAR HEMOGLOBIN 28 pg (25-35); MEAN CORPUSCULAR HGB CONC 32 g/dL (31-37); MEAN CORPUSCULAR VOLUME 88 fL (79-100); MONO % 7 % (0-9); NEUT % 56 % (31-73); PLATELET COUNT 268 x10^3/uL (140-400); RED BLOOD COUNT 3.34 x10^6/uL (3.50-5.40); RED CELL DISTRIBUTION WIDTH 17.7 % (11.5-14.5); WHITE BLOOD COUNT 6.7 x10^3/uL (4.0-11.0)
[2017-01-12 04:14] LABS: CALCIUM 9.4 mg/dL (8.5-10.1); CREATININE 0.8 mg/dL (0.6-1.0); GFR 88.2; POTASSIUM 4.1 mmol/L (3.5-5.1)
[2017-01-12 07:00] VITALS: BP 146/74
[2017-01-12] MEDS: FAMOTIDINE 20 MG TABLET. PO SCH ×2 (08:29→21:53)
[2017-01-12] MEDS: amLODIPine BESYLATE 5 MG TABLET PO SCH (08:30)
[2017-01-12] MEDS: ZINC OXIDE 20% TOPICAL OINTMENT 28GM TUBE. TP SCH ×2 (08:32→21:52)
[2017-01-12] MEDS: LIDOCAINE 5% TOPICAL OINTMENT 35GM TUBE. TP SCH ×2 (08:32→21:52)
--- NOTE | 2017-01-12 08:49 | PDOC ---
Infectious Disease Note Subjective Subjective feeling good, no complaints ROS ROS GEN: Denies fevers, chills, sweats HEENT: Denies blurred vision, sore throat CV: Denies chest pain RESP: Denies shortness of air, cough GI: Denies n/v/d NEURO: Denies confusion, dizziness MSK: Denies weakness, joint pain/swelling Vital Sign Vital Signs Vital Signs Date Time Temp Pulse Resp B/P (MAP) Pulse Ox O2 Delivery O2 Flow Rate FiO2 01/12/17 08:30 91 120/60 01/12/17 06:26 25 Room Air 01/12/17 00:26 98 01/11/17 23:00 98.5 98.5 Physical Exam PHYSICAL EXAM GENERAL: NAD, Alert HEENT: PERRL, OC/OP NECK: Supple, no JVD, no LN LUNGS: Clear HEART: S1S2, no gallop, no murmur ABD: Soft, NT, no organomegaly, no rebound EXT: No edema, no cyanosis LOCKSTITCH LINING MAKER: Alert, oriented x 3, no focal neurologic deficit SKIN: No rash IV: ok Labs Lab Laboratory Tests Test 01/12/17 03:05 White Blood Count 6.7 x10^3/uL (4.0-11.0) Red Blood Count 3.34 x10^6/uL (3.50-5.40) Hemoglobin 9.4 g/dL (12.0-15.5) Hematocrit 29.4 % (36.0-47.0) Mean Corpuscular Volume 88 fL (79-100) Mean Corpuscular Hemoglobin 28 pg (25-35) Mean Corpuscular Hemoglobin Concent 32 g/dL (31-37) Red Cell Distribution Width 17.7 % (11.5-14.5) Platelet Count 268 x10^3/uL (140-400) Neutrophils (%) (Auto) 56 % (31-73) Lymphocytes (%) (Auto) 27 % (24-48) Monocytes (%) (Auto) 7 % (0-9) Eosinophils (%) (Auto) 9 % (0-3) Basophils (%) (Auto) 1 % (0-3) Neutrophils # (Auto) 3.7 x10^3uL (1.8-7.7) Lymphocytes # (Auto) 1.8 x10^3/uL (1.0-4.8) Monocytes # (Auto) 0.5 x10^3/uL (0.0-1.1) Eosinophils # (Auto) 0.6 x10^3/uL (0.0-0.7) Basophils # (Auto) 0.1 x10^3/uL (0.0-0.2) Sodium Level 137 mmol/L (136-145) Potassium Level 4.1 mmol/L (3.5-5.1) Chloride Level 102 mmol/L (98-107) Carbon Dioxide Level 26 mmol/L (21-32) Anion Gap 9 (6-14) Blood Urea Nitrogen 16 mg/dL (7-20) Creatinine 0.8 mg/dL (0.6-1.0) Estimated GFR (Cockcroft-Gault) 88.2 Glucose Level 95 mg/dL (70-99) Calcium Level 9.4 mg/dL (8.5-10.1) Objective Assessment Fever prior to admit Abdominal pain better EC fistula. GNR Entero vesicular fistula Short gut syndrome, on chronic TPN Urine culture has no value since pt has enterovesicular fistula Plan Plan of Care d/w dr Cisneros Maintain hydration JOSSY TATUM MD Jan 12, 2017 08:49
--- NOTE | 2017-01-12 08:53 | PDOC ---
PROGRESS NOTES Subjective Subjective recurrent vomiting yesterday but feels better today.i lab reviewed. will order iv zofran every 6 hours. afebrile. blood pressure okay. discussed with dr. red nesbitt. Objective Objective Vital Signs Date Time Temp Pulse Resp B/P (MAP) Pulse Ox O2 Delivery O2 Flow Rate FiO2 01/12/17 08:30 91 120/60 01/12/17 06:26 25 Room Air 01/12/17 00:26 98 01/11/17 23:00 98.5 98.5 Intake and Output 01/12/17 07:00 Intake Total 1360 ml Output Total 1150 ml Balance 210 ml Intake Oral 1360 ml Output Urine Total 1150 ml Physical Exam Abdomen: Soft Heart: Regular rate, Normal S1, Normal S2 Extremities: No edema General: Alert HEENT: Atraumatic Lungs: Clear to auscultation Neuro: Normal speech Psych/Mental Status: Mental status NL Skin: No rashes Assessment Assessment Problems Fever resolved 2. Enterocutaneous fistula. 3. Enterovesical fistula. 4. Hypokalemia.resolved 5. Nausea and vomiting 6. Abdominal pain.improved 7. Hypertension. 8. Anemia of chronic disease. e. coli in urine with enterovesical fistula. not treatin Medical Problems: (1) Fever Status: Acute (2) Fistula Status: Acute (3) Intractable abdominal pain Status: Acute Plan Plan of Care continue TPN start iv zofran every 6 hours lab tomorrow home tomorrow if stable Comment Review of Relevant I have reviewed the following items lucila (where applicable) has been applied. Labs Laboratory Tests Test 01/11/17 06:00 01/12/17 03:05 White Blood Count 6.0 x10^3/uL (4.0-11.0) 6.7 x10^3/uL (4.0-11.0) Red Blood Count 3.03 x10^6/uL (3.50-5.40) 3.34 x10^6/uL (3.50-5.40) Hemoglobin 8.5 g/dL (12.0-15.5) 9.4 g/dL (12.0-15.5) Hematocrit 25.7 % (36.0-47.0) 29.4 % (36.0-47.0) Mean Corpuscular Volume 85 fL (79-100) 88 fL (79-100) Mean Corpuscular Hemoglobin 28 pg (25-35) 28 pg (25-35) Mean Corpuscular Hemoglobin Concent 33 g/dL (31-37) 32 g/dL (31-37) Red Cell Distribution Width 16.8 % (11.5-14.5) 17.7 % (11.5-14.5) Platelet Count 250 x10^3/uL (140-400) 268 x10^3/uL (140-400) Neutrophils (%) (Auto) 57 % (31-73) 56 % (31-73) Lymphocytes (%) (Auto) 22 % (24-48) 27 % (24-48) Monocytes (%) (Auto) 13 % (0-9) 7 % (0-9) Eosinophils (%) (Auto) 7 % (0-3) 9 % (0-3) Basophils (%) (Auto) 1 % (0-3) 1 % (0-3) Neutrophils # (Auto) 3.4 x10^3uL (1.8-7.7) 3.7 x10^3uL (1.8-7.7) Lymphocytes # (Auto) 1.3 x10^3/uL (1.0-4.8) 1.8 x10^3/uL (1.0-4.8) Monocytes # (Auto) 0.8 x10^3/uL (0.0-1.1) 0.5 x10^3/uL (0.0-1.1) Eosinophils # (Auto) 0.4 x10^3/uL (0.0-0.7) 0.6 x10^3/uL (0.0-0.7) Basophils # (Auto) 0.1 x10^3/uL (0.0-0.2) 0.1 x10^3/uL (0.0-0.2) Sodium Level 137 mmol/L (136-145) 137 mmol/L (136-145) Potassium Level 5.0 mmol/L (3.5-5.1) 4.1 mmol/L (3.5-5.1) Chloride Level 107 mmol/L (98-107) 102 mmol/L (98-107) Carbon Dioxide Level 27 mmol/L (21-32) 26 mmol/L (21-32) Anion Gap 3 (6-14) 9 (6-14) Blood Urea Nitrogen 24 mg/dL (7-20) 16 mg/dL (7-20) Creatinine 0.8 mg/dL (0.6-1.0) 0.8 mg/dL (0.6-1.0) Estimated GFR (Cockcroft-Gault) 88.2 88.2 Glucose Level 112 mg/dL (70-99) 95 mg/dL (70-99) Calcium Level 8.2 mg/dL (8.5-10.1) 9.4 mg/dL (8.5-10.1) Phosphorus Level 2.8 mg/dL (2.6-4.7) Magnesium Level 2.3 mg/dL (1.8-2.4) Laboratory Tests Test 01/12/17 03:05 White Blood Count 6.7 x10^3/uL (4.0-11.0) Red Blood Count 3.34 x10^6/uL (3.50-5.40) Hemoglobin 9.4 g/dL (12.0-15.5) Hematocrit 29.4 % (36.0-47.0) Mean Corpuscular Volume 88 fL (79-100) Mean Corpuscular Hemoglobin 28 pg (25-35) Mean Corpuscular Hemoglobin Concent 32 g/dL (31-37) Red Cell Distribution Width 17.7 % (11.5-14.5) Platelet Count 268 x10^3/uL (140-400) Neutrophils (%) (Auto) 56 % (31-73) Lymphocytes (%) (Auto) 27 % (24-48) Monocytes (%) (Auto) 7 % (0-9) Eosinophils (%) (Auto) 9 % (0-3) Basophils (%) (Auto) 1 % (0-3) Neutrophils # (Auto) 3.7 x10^3uL (1.8-7.7) Lymphocytes # (Auto) 1.8 x10^3/uL (1.0-4.8) Monocytes # (Auto) 0.5 x10^3/uL (0.0-1.1) Eosinophils # (Auto) 0.6 x10^3/uL (0.0-0.7) Basophils # (Auto) 0.1 x10^3/uL (0.0-0.2) Sodium Level 137 mmol/L (136-145) Potassium Level 4.1 mmol/L (3.5-5.1) Chloride Level 102 mmol/L (98-107) Carbon Dioxide Level 26 mmol/L (21-32) Anion Gap 9 (6-14) Blood Urea Nitrogen 16 mg/dL (7-20) Creatinine 0.8 mg/dL (0.6-1.0) Estimated GFR (Cockcroft-Gault) 88.2 Glucose Level 95 mg/dL (70-99) Calcium Level 9.4 mg/dL (8.5-10.1) Microbiology 01/08/17 Urine Culture - Final, Complete 01/08/17 Urine Culture Result 1 (ROYA) - Final, Complete 01/08/17 Antimicrobic Susceptibility - Final, Complete Medications Current Medications Hydromorphone HCl (Dilaudid) 1 mg 1X ONCE IV Last administered on 01/08/17 19 :54; Start 01/08/17 at 20:15; Stop 01/08/17 at 20:16; Status DC Ondansetron HCl (Zofran) 4 mg 1X ONCE IV Last administered on 01/08/17 19:54 ; Start 01/08/17 at 20:15; Stop 01/08/17 at 20:16; Status DC Sodium Chloride 500 ml @ 500 mls/hr 1X ONCE IV Last administered on 19:55; Start 01/08/17 at 19:45; Stop 01/08/17 at 20:44; Status DC Hydromorphone HCl (Dilaudid) 1 mg 1X ONCE IV Last administered on 01/08/17 20 :52; Start 01/08/17 at 21:15; Stop 01/08/17 at 21:16; Status DC Hydromorphone HCl (Dilaudid) 1 mg 1X ONCE IV ; Start 01/08/17 at 21:30; Stop at 21:31; Status DC Ondansetron HCl (Zofran) 4 mg PRN Q6HRS PRN IV NAUSEA/VOMITING; Start 01/08/17 at 21:00; Stop 01/09/17 at 08:56; Status DC Linezolid 300 ml @ 300 mls/hr Q12HR IV Last administered on 01/10/17 21:43; Start 01/09/17 at 09:00; Stop 01/11/17 at 08:32; Status DC Piperacillin Sod/ Tazobactam Sod 3.375 gm/Sodium Chloride 50 ml @ 100 mls/hr Q6HRS IV Last administered on 01/11/17 06:12; Start 01/09/17 at 00:00; Stop at 08:32; Status DC Hydromorphone HCl (Dilaudid) 4 mg PRN Q6HRS PRN IV pain Last administered on 06:26; Start 01/08/17 at 21:00 Potassium Chloride/Dextrose/ Sod Cl 1,000 ml @ 125 mls/hr 1X ONCE IV Last administered on 01/08/17 21:30; Start 01/08/17 at 21:45; Stop 01/09/17 at 05:44 ; Status DC Linezolid 300 ml @ 300 mls/hr 1X ONCE IV Last administered on 01/08/17 21:32 ; Start 01/08/17 at 21:45; Stop 01/08/17 at 22:44; Status DC Piperacillin Sod/ Tazobactam Sod 3.375 gm/Sodium Chloride 50 ml @ 100 mls/hr 1X ONCE IV Last administered on 01/08/17 21:34; Start 01/08/17 at 21:45; Stop 01/08/17 at 22:14; Status DC Potassium Chloride/Dextrose/ Sod Cl 1,000 ml @ 100 mls/hr Q10H IV Last administered on 01/09/17 09:14; Start 01/09/17 at 08:45; Stop 01/09/17 at 21:59 ; Status DC Ondansetron HCl (Zofran) 4 mg PRN Q6HRS PRN IV NAUSEA/VOMITING Last administered on 01/11/17 11:50; Start 01/09/17 at 08:45 Potassium Chloride 50 ml @ 50 mls/hr 1X ONCE IV Last administered on 09:30; Start 01/09/17 at 09:00; Stop 01/09/17 at 09:59; Status DC Famotidine (Pepcid) 20 mg BID PO Last administered on 01/12/17 08:29; Start at 09:00 Zinc Oxide 1 sang BID TP Last administered on 01/12/17 08:32; Start 01/09/17 at 09:00 Lidocaine (Xylocaine) 1 sang BID TP Last administered on 01/12/17 08:32; Start 01/09/17 at 09:00 Lorazepam (Ativan) 0.5 mg PRN Q6HRS PRN PO ANXIETY / AGITATION; Start 01/09/17 at 08:45 Acetaminophen (Tylenol) 650 mg PRN Q6HRS PRN PO MILD PAIN / TEMP; Start at 08:45 Amlodipine Besylate (Norvasc) 5 mg DAILY PO Last administered on 01/10/17 09: 00; Start 01/09/17 at 09:00; Stop 01/11/17 at 09:11; Status DC Zolpidem Tartrate (Ambien) 5 mg PRN QHS PRN PO INSOMNIA Last administered on 23:05; Start 01/09/17 at 09:15 Sodium Chloride 150 meq/Sodium Acetate 60 meq/ Potassium Chloride 100 meq/ Magnesium Sulfate 20 meq/ Multivitamins 10 ml/Chromium/ Copper/Manganese/ Seleni /Zn 1 ml/ Total Parenteral Nutrition/Amino Acids/Dextrose/ Fat Emulsion Intravenous 1,920 ml @ 80 mls/hr TPN CONT IV Last administered on 01/09/17 22:33; Start 01/09/17 at 22:00; Stop 01/10/17 at 21:59; Status DC Info 1 each PRN DAILY PRN MC SEE COMMENTS Last administered on 01/11/17 12:48 ; Start 01/09/17 at 11:15 Potassium Chloride 50 ml @ 25 mls/hr 1X ONCE IV Last administered on 13:11; Start 01/10/17 at 10:00; Stop 01/10/17 at 11:59; Status DC Sodium Chloride 150 meq/Sodium Acetate 60 meq/ Potassium Chloride 100 meq/ Magnesium Sulfate 20 meq/ Multivitamins 10 ml/Chromium/ Copper/Manganese/ Seleni /Zn 1 ml/ Total Parenteral Nutrition/Amino Acids/Dextrose/ Fat Emulsion Intravenous 1,920 ml @ 80 mls/hr TPN CONT IV Last administered on 01/10/17 21:46; Start 01/10/17 at 22:00; Stop 01/11/17 at 09:15; Status DC Dextrose/Sodium Chloride 1,000 ml @ 80 mls/hr [id number] IV Last administered on 01/11/17 09:25; Start 01/11/17 at 09:00 Info 1 each PRN DAILY PRN MC SEE COMMENTS; Start 01/11/17 at 09:15; Stop at 09:15; Status DC Amlodipine Besylate (Norvasc) 10 mg DAILY PO Last administered on 01/12/17 08: 30; Start 01/12/17 at 09:00 Sodium Chloride 150 meq/Sodium Acetate 60 meq/ Potassium Chloride 60 meq/ Magnesium Sulfate 20 meq/ Multivitamins 10 ml/Chromium/ Copper/Manganese/ Seleni /Zn 1 ml/ Total Parenteral Nutrition/Amino Acids/Dextrose/ Fat Emulsion Intravenous 1,920 ml @ 80 mls/hr TPN CONT IV Last administered on 01/11/17 21:45; Start 01/11/17 at 22:00; Stop 01/12/17 at 21:59 Active Scripts Active Sertraline Hcl 50 Mg Tablet 50 Mg PO DAILY 30 Days Famotidine 20 Mg Tablet 20 Mg PO BID 60 Days Lidocaine 35.44 Gm Oint...g. 1 Sang TP BID Reported Zofran Odt (Ondansetron) 4 Mg Tab.rapdis 1 Tab SL PRN Q8HRS PRN Zinc Oxide 56.7 Gm Oint...g. 56.7 Gm TP PRN BID Dilaudid (Hydromorphone Hcl) 2 Mg Tablet 1 Tab PO PRN QID PRN Amlodipine Besylate 5 Mg Tablet 5 Mg PO DAILY Lorazepam 0.5 Mg Tablet 0.5 Mg PO Q6HRS PRN Vitals/I & O Vital Sign - Last 24 Hours 01/11/17 01/11/17 01/11/17 01/11/17 11:00 15:00 19:00 20:00 Temp 98.0 97.2 98.2 98.0 97.2 98.2 Pulse 82 84 98 Resp 20 18 20 B/P (MAP) 113/66 (82) 100/59 (73) 158/86 (110) Pulse Ox 97 97 100 O2 Delivery Room Air Room Air 01/11/17 01/12/17 01/12/17 01/12/17 23:00 00:26 01:04 06:26 Temp 98.5 98.5 Pulse 91 Resp 20 19 25 B/P (MAP) 120/60 (80) Pulse Ox 98 98 O2 Delivery Room Air Room Air Room Air Room Air 01/12/17 08:30 Pulse 91 B/P (MAP) 120/60 Intake and Output 01/11/17 01/11/17 01/12/17 15:00 23:00 07:00 Intake Total 320 ml 840 ml 200 ml Output Total 1000 ml 150 ml Balance 320 ml -160 ml 50 ml BENITA LUTZ MD Jan 12, 2017 08:53
--- NOTE | 2017-01-12 08:58 | DISCH ---
DISCHARGE INSTRUCTIONS Condition on Discharge Condition on Discharge: Stable Activity After Discharge Activity Instructions for Disc: Resume previous activity Diet after Discharge Diet after Discharge: GI Soft Follow-Up Follow up with: dr. lutz next week BENITA LUTZ MD Jan 12, 2017 08:58
[2017-01-12] MEDS ORDERED: AMLO5TAB2 PO (09:01)
--- NOTE | 2017-01-12 09:05 | PDOC ---
Provider Note Provider Note discharge summary dictated # [id number] BENITA LUTZ MD Jan 12, 2017 09:05
[2017-01-12 11:00] VITALS: BP 139/76
--- NOTE | 2017-01-12 11:26 | DS ---
DATE OF DISCHARGE: 01/13/2017 DATE OF ANTICIPATED DISMISSAL: 01/13/2017. ASSISTANT HOUSEKEEPING MANAGER: Dr. Garcia Suggs. FINAL DIAGNOSES: 1. Fever of undetermined etiology, which resolved. 2. Nausea and vomiting, which also resolved. 3. Enterocutaneous fistula. 4. Enterovesical fistula. 5. Hypokalemia. 6. Nausea. 7. Abdominal pain, suspect secondary to adhesions. 8. Hypertension. 9. Anemia of chronic disease. 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 She denied any cough or dysuria. Discussed the case with the Emergency Room doctor and asked me to do blood cultures, but apparently it was not done. She was started on IV Zyvox and Zosyn. She was seen by Dr. Garcia Suggs in consultation. Her urine culture did grow E. coli with some pyuria, but she has an enterovesical fistula, so her urine culture always be positive. It was felt that it was not the cause of her fever. Antibiotics were discontinued as her blood cultures were negative and she was afebrile off of them. She did have some recurrent nausea and vomiting and she was started on IV Zofran 4 mg IV every 6 hours, which would be switched to oral p.r.n. if she does well tomorrow. There is no abdominal tenderness and she is on a GI soft solid diet. Chest x-ray showed no acute infiltrate. Her potassium chloride was low and then it was adjusted and that it was 5.0 yesterday and it was decreased back to 60 mEq/bag per day TPN. Labs will be checked tomorrow and is anticipated she will be dismissed tomorrow on January 13 with home health and she will have a weekly CBC, CMP, magnesium and phosphorus done every Wednesday with the results sent to Dr. Cisneros and she must make an appointment to see Dr. Cisneros in the office next week and she will be dismissed on amlodipine 10 mg everyday as her dose was increased from 5 to 10 mg every day. Dilaudid 2 mg p.o. q.i.d. p.r.n., Pepcid 20 mg b.i.d., Lidoderm 5% ointment apply to the abdominal wall followed by zinc oxide 20% b.i.d., lorazepam 0.5 mg p.o. every 6 hours p.r.n. for anxiety, sertraline 50 mg at bedtime, Tylenol 650 mg every 6 hours p.r.n., Zofran 4 mg p.o. every 6 hours p.r.n. for nausea and vomiting, and Ambien 5 mg at bedtime p.r.n. She will continue with her TPN at this point at 60 mg of potassium chloride per bag of TPN and will be 80 mL an hour continuously through her PowerPICC. BENITA CISNEROS MD DR: Joce JOB#: [id number] / [id number]
[2017-01-12] MEDS: ONDANSETRON PF 4 MG/2 ML VIAL. IV SCH ×3 (12:21→21:53)
[2017-01-12] MEDS: TPN PER PHARMACY MC PRN ×2 (12:25→12:29)
[2017-01-12 15:00] VITALS: BP 125/80
[2017-01-12 19:00] VITALS: BP 147/90
[2017-01-12] MEDS ORDERED: diphenhydrAMINE HCL 25 MG CAPSULE PO PRN (19:15)
[2017-01-12] MEDS ORDERED: [UNRECOGNIZED DRUG - OTHER] IV SCH ×9 (22:00)
[2017-01-12] MEDS ORDERED: AMINO ACID IV SCH ×9 (22:00)
[2017-01-12] MEDS ORDERED: TOTAL PARENTERAL NUTRITION IV SCH ×9 (22:00)
[2017-01-12] MEDS ORDERED: DEXTROSE 70% IV SCH ×9 (22:00)
[2017-01-12 23:00] VITALS: BP 148/65
[2017-01-13] MEDS: HYDROmorphone 2 MG/ML VIAL IV PRN ×4 (00:26→20:49)
[2017-01-13] MEDS: ONDANSETRON PF 4 MG/2 ML VIAL. IV SCH ×3 (06:21→17:14)
[2017-01-13 07:00] VITALS: BP 151/105
[2017-01-13 08:16] LABS: BASO % 1 % (0-3); EOS % 8 % (0-3); HEMATOCRIT 28.8 % (36.0-47.0); HEMOGLOBIN 9.2 g/dL (12.0-15.5); LYMPH # 0.9 x10^3/uL (1.0-4.8); LYMPH % 19 % (24-48); MEAN CORPUSCULAR HEMOGLOBIN 28 pg (25-35); MEAN CORPUSCULAR HGB CONC 32 g/dL (31-37); MEAN CORPUSCULAR VOLUME 87 fL (79-100); MONO % 7 % (0-9); NEUT % 65 % (31-73); PLATELET COUNT 245 x10^3/uL (140-400); RED BLOOD COUNT 3.31 x10^6/uL (3.50-5.40); RED CELL DISTRIBUTION WIDTH 17.7 % (11.5-14.5); WHITE BLOOD COUNT 4.8 x10^3/uL (4.0-11.0)
[2017-01-13 08:19] LABS: CALCIUM 8.7 mg/dL (8.5-10.1); CREATININE 0.7 mg/dL (0.6-1.0); DIRECT BILIRUBIN 0.3 mg/dL (0.0-0.2); GFR 102.9; POTASSIUM 4.4 mmol/L (3.5-5.1); TOTAL BILIRUBIN 0.4 mg/dL (0.2-1.0)
[2017-01-13] MEDS: FAMOTIDINE 20 MG TABLET. PO SCH ×2 (08:27→21:07)
[2017-01-13] MEDS: LIDOCAINE 5% TOPICAL OINTMENT 35GM TUBE. TP SCH ×2 (08:27→20:51)
[2017-01-13] MEDS: amLODIPine BESYLATE 5 MG TABLET PO SCH (08:27)
--- NOTE | 2017-01-13 08:45 | PDOC ---
PROGRESS NOTES Subjective Subjective says she has diarrhea with 6 stools yesterday and 4 today.. no nausea. lab reviewed. blood pressure high and has not received her morning bp meds yet. Objective Objective Vital Signs Date Time Temp Pulse Resp B/P (MAP) Pulse Ox O2 Delivery O2 Flow Rate FiO2 01/13/17 08:27 111 151/105 01/13/17 07:03 18 Room Air 01/13/17 07:00 98.2 96 98.2 Intake and Output 01/13/17 07:00 Intake Total 1720 ml Balance 1720 ml Intake Oral 920 ml Other 800 ml Physical Exam Abdomen: Soft Heart: Regular rate, Normal S1, Normal S2 Extremities: No edema General: Alert HEENT: Atraumatic Lungs: Clear to auscultation Neuro: Normal speech Psych/Mental Status: Mental status NL Skin: No rashes Assessment Assessment ProblemsFever resolved 2. Enterocutaneous fistula. 3. Enterovesical fistula. 4. Hypokalemia.resolved 5. Nausea and vomiting 6. Abdominal pain.improved 7. Hypertension. 8. Anemia of chronic disease. e. coli in urine with enterovesical fistula. not treating diarrhea Medical Problems: (1) Fever Status: Acute (2) Fistula Status: Acute (3) Intractable abdominal pain Status: Acute Plan Plan of Care stool for c. diff continue TPN lab tomorrow start colestid for diarrhea Comment Review of Relevant I have reviewed the following items lucila (where applicable) has been applied. Labs Laboratory Tests Test 01/12/17 03:05 01/13/17 07:55 White Blood Count 6.7 x10^3/uL (4.0-11.0) 4.8 x10^3/uL (4.0-11.0) Red Blood Count 3.34 x10^6/uL (3.50-5.40) 3.31 x10^6/uL (3.50-5.40) Hemoglobin 9.4 g/dL (12.0-15.5) 9.2 g/dL (12.0-15.5) Hematocrit 29.4 % (36.0-47.0) 28.8 % (36.0-47.0) Mean Corpuscular Volume 88 fL (79-100) 87 fL (79-100) Mean Corpuscular Hemoglobin 28 pg (25-35) 28 pg (25-35) Mean Corpuscular Hemoglobin Concent 32 g/dL (31-37) 32 g/dL (31-37) Red Cell Distribution Width 17.7 % (11.5-14.5) 17.7 % (11.5-14.5) Platelet Count 268 x10^3/uL (140-400) 245 x10^3/uL (140-400) Neutrophils (%) (Auto) 56 % (31-73) 65 % (31-73) Lymphocytes (%) (Auto) 27 % (24-48) 19 % (24-48) Monocytes (%) (Auto) 7 % (0-9) 7 % (0-9) Eosinophils (%) (Auto) 9 % (0-3) 8 % (0-3) Basophils (%) (Auto) 1 % (0-3) 1 % (0-3) Neutrophils # (Auto) 3.7 x10^3uL (1.8-7.7) 3.1 x10^3uL (1.8-7.7) Lymphocytes # (Auto) 1.8 x10^3/uL (1.0-4.8) 0.9 x10^3/uL (1.0-4.8) Monocytes # (Auto) 0.5 x10^3/uL (0.0-1.1) 0.3 x10^3/uL (0.0-1.1) Eosinophils # (Auto) 0.6 x10^3/uL (0.0-0.7) 0.4 x10^3/uL (0.0-0.7) Basophils # (Auto) 0.1 x10^3/uL (0.0-0.2) 0.0 x10^3/uL (0.0-0.2) Sodium Level 137 mmol/L (136-145) 136 mmol/L (136-145) Potassium Level 4.1 mmol/L (3.5-5.1) 4.4 mmol/L (3.5-5.1) Chloride Level 102 mmol/L (98-107) 105 mmol/L (98-107) Carbon Dioxide Level 26 mmol/L (21-32) 27 mmol/L (21-32) Anion Gap 9 (6-14) 4 (6-14) Blood Urea Nitrogen 16 mg/dL (7-20) 20 mg/dL (7-20) Creatinine 0.8 mg/dL (0.6-1.0) 0.7 mg/dL (0.6-1.0) Estimated GFR (Cockcroft-Gault) 88.2 102.9 Glucose Level 95 mg/dL (70-99) 130 mg/dL (70-99) Calcium Level 9.4 mg/dL (8.5-10.1) 8.7 mg/dL (8.5-10.1) Total Bilirubin 0.4 mg/dL (0.2-1.0) Direct Bilirubin 0.3 mg/dL (0.0-0.2) Aspartate Amino Transf (AST/SGOT) 18 U/L (15-37) Alanine Aminotransferase (ALT/SGPT) 22 U/L (14-59) Alkaline Phosphatase 292 U/L (46-116) Total Protein 8.0 g/dL (6.4-8.2) Albumin 3.0 g/dL (3.4-5.0) Laboratory Tests Test 01/13/17 07:55 White Blood Count 4.8 x10^3/uL (4.0-11.0) Red Blood Count 3.31 x10^6/uL (3.50-5.40) Hemoglobin 9.2 g/dL (12.0-15.5) Hematocrit 28.8 % (36.0-47.0) Mean Corpuscular Volume 87 fL (79-100) Mean Corpuscular Hemoglobin 28 pg (25-35) Mean Corpuscular Hemoglobin Concent 32 g/dL (31-37) Red Cell Distribution Width 17.7 % (11.5-14.5) Platelet Count 245 x10^3/uL (140-400) Neutrophils (%) (Auto) 65 % (31-73) Lymphocytes (%) (Auto) 19 % (24-48) Monocytes (%) (Auto) 7 % (0-9) Eosinophils (%) (Auto) 8 % (0-3) Basophils (%) (Auto) 1 % (0-3) Neutrophils # (Auto) 3.1 x10^3uL (1.8-7.7) Lymphocytes # (Auto) 0.9 x10^3/uL (1.0-4.8) Monocytes # (Auto) 0.3 x10^3/uL (0.0-1.1) Eosinophils # (Auto) 0.4 x10^3/uL (0.0-0.7) Basophils # (Auto) 0.0 x10^3/uL (0.0-0.2) Sodium Level 136 mmol/L (136-145) Potassium Level 4.4 mmol/L (3.5-5.1) Chloride Level 105 mmol/L (98-107) Carbon Dioxide Level 27 mmol/L (21-32) Anion Gap 4 (6-14) Blood Urea Nitrogen 20 mg/dL (7-20) Creatinine 0.7 mg/dL (0.6-1.0) Estimated GFR (Cockcroft-Gault) 102.9 Glucose Level 130 mg/dL (70-99) Calcium Level 8.7 mg/dL (8.5-10.1) Total Bilirubin 0.4 mg/dL (0.2-1.0) Direct Bilirubin 0.3 mg/dL (0.0-0.2) Aspartate Amino Transf (AST/SGOT) 18 U/L (15-37) Alanine Aminotransferase (ALT/SGPT) 22 U/L (14-59) Alkaline Phosphatase 292 U/L (46-116) Total Protein 8.0 g/dL (6.4-8.2) Albumin 3.0 g/dL (3.4-5.0) Microbiology 01/08/17 Urine Culture - Final, Complete 01/08/17 Urine Culture Result 1 (ROYA) - Final, Complete 01/08/17 Antimicrobic Susceptibility - Final, Complete Medications Current Medications Hydromorphone HCl (Dilaudid) 1 mg 1X ONCE IV Last administered on 01/08/17 19 :54; Start 01/08/17 at 20:15; Stop 01/08/17 at 20:16; Status DC Ondansetron HCl (Zofran) 4 mg 1X ONCE IV Last administered on 01/08/17 19:54 ; Start 01/08/17 at 20:15; Stop 01/08/17 at 20:16; Status DC Sodium Chloride 500 ml @ 500 mls/hr 1X ONCE IV Last administered on 19:55; Start 01/08/17 at 19:45; Stop 01/08/17 at 20:44; Status DC Hydromorphone HCl (Dilaudid) 1 mg 1X ONCE IV Last administered on 01/08/17 20 :52; Start 01/08/17 at 21:15; Stop 01/08/17 at 21:16; Status DC Hydromorphone HCl (Dilaudid) 1 mg 1X ONCE IV ; Start 01/08/17 at 21:30; Stop at 21:31; Status DC Ondansetron HCl (Zofran) 4 mg PRN Q6HRS PRN IV NAUSEA/VOMITING; Start 01/08/17 at 21:00; Stop 01/09/17 at 08:56; Status DC Linezolid 300 ml @ 300 mls/hr Q12HR IV Last administered on 01/10/17 21:43; Start 01/09/17 at 09:00; Stop 01/11/17 at 08:32; Status DC Piperacillin Sod/ Tazobactam Sod 3.375 gm/Sodium Chloride 50 ml @ 100 mls/hr Q6HRS IV Last administered on 01/11/17 06:12; Start 01/09/17 at 00:00; Stop at 08:32; Status DC Hydromorphone HCl (Dilaudid) 4 mg PRN Q6HRS PRN IV pain Last administered on 06:21; Start 01/08/17 at 21:00 Potassium Chloride/Dextrose/ Sod Cl 1,000 ml @ 125 mls/hr 1X ONCE IV Last administered on 01/08/17 21:30; Start 01/08/17 at 21:45; Stop 01/09/17 at 05:44 ; Status DC Linezolid 300 ml @ 300 mls/hr 1X ONCE IV Last administered on 01/08/17 21:32 ; Start 01/08/17 at 21:45; Stop 01/08/17 at 22:44; Status DC Piperacillin Sod/ Tazobactam Sod 3.375 gm/Sodium Chloride 50 ml @ 100 mls/hr 1X ONCE IV Last administered on 01/08/17 21:34; Start 01/08/17 at 21:45; Stop 01/08/17 at 22:14; Status DC Potassium Chloride/Dextrose/ Sod Cl 1,000 ml @ 100 mls/hr Q10H IV Last administered on 01/09/17 09:14; Start 01/09/17 at 08:45; Stop 01/09/17 at 21:59 ; Status DC Ondansetron HCl (Zofran) 4 mg PRN Q6HRS PRN IV NAUSEA/VOMITING Last administered on 01/11/17 11:50; Start 01/09/17 at 08:45; Stop 01/12/17 at 12:00 ; Status DC Potassium Chloride 50 ml @ 50 mls/hr 1X ONCE IV Last administered on 09:30; Start 01/09/17 at 09:00; Stop 01/09/17 at 09:59; Status DC Famotidine (Pepcid) 20 mg BID PO Last administered on 01/13/17 08:27; Start at 09:00 Zinc Oxide 1 sang BID TP Last administered on 01/12/17 21:52; Start 01/09/17 at 09:00 Lidocaine (Xylocaine) 1 sang BID TP Last administered on 01/13/17 08:27; Start 01/09/17 at 09:00 Lorazepam (Ativan) 0.5 mg PRN Q6HRS PRN PO ANXIETY / AGITATION; Start 01/09/17 at 08:45 Acetaminophen (Tylenol) 650 mg PRN Q6HRS PRN PO MILD PAIN / TEMP; Start at 08:45 Amlodipine Besylate (Norvasc) 5 mg DAILY PO Last administered on 01/10/17 09: 00; Start 01/09/17 at 09:00; Stop 01/11/17 at 09:11; Status DC Zolpidem Tartrate (Ambien) 5 mg PRN QHS PRN PO INSOMNIA Last administered on 23:05; Start 01/09/17 at 09:15 Sodium Chloride 150 meq/Sodium Acetate 60 meq/ Potassium Chloride 100 meq/ Magnesium Sulfate 20 meq/ Multivitamins 10 ml/Chromium/ Copper/Manganese/ Seleni /Zn 1 ml/ Total Parenteral Nutrition/Amino Acids/Dextrose/ Fat Emulsion Intravenous 1,920 ml @ 80 mls/hr TPN CONT IV Last administered on 01/09/17 22:33; Start 01/09/17 at 22:00; Stop 01/10/17 at 21:59; Status DC Info 1 each PRN DAILY PRN MC SEE COMMENTS Last administered on 01/12/17 12:29; Start 01/09/17 at 11:15 Potassium Chloride 50 ml @ 25 mls/hr 1X ONCE IV Last administered on 13:11; Start 01/10/17 at 10:00; Stop 01/10/17 at 11:59; Status DC Sodium Chloride 150 meq/Sodium Acetate 60 meq/ Potassium Chloride 100 meq/ Magnesium Sulfate 20 meq/ Multivitamins 10 ml/Chromium/ Copper/Manganese/ Seleni /Zn 1 ml/ Total Parenteral Nutrition/Amino Acids/Dextrose/ Fat Emulsion Intravenous 1,920 ml @ 80 mls/hr TPN CONT IV Last administered on 01/10/17 21:46; Start 01/10/17 at 22:00; Stop 01/11/17 at 09:15; Status DC Dextrose/Sodium Chloride 1,000 ml @ 80 mls/hr [id number] IV Last administered on 01/11/17 09:25; Start 01/11/17 at 09:00; Stop 01/12/17 at 08:51; Status DC Info 1 each PRN DAILY PRN MC SEE COMMENTS; Start 01/11/17 at 09:15; Stop at 09:15; Status DC Amlodipine Besylate (Norvasc) 10 mg DAILY PO Last administered on 01/13/17 08: 27; Start 01/12/17 at 09:00 Sodium Chloride 150 meq/Sodium Acetate 60 meq/ Potassium Chloride 60 meq/ Magnesium Sulfate 20 meq/ Multivitamins 10 ml/Chromium/ Copper/Manganese/ Seleni /Zn 1 ml/ Total Parenteral Nutrition/Amino Acids/Dextrose/ Fat Emulsion Intravenous 1,920 ml @ 80 mls/hr TPN CONT IV Last administered on 01/11/17 21:45; Start 01/11/17 at 22:00; Stop 01/12/17 at 21:59; Status DC Ondansetron HCl (Zofran) 4 mg Q6HRS IV Last administered on 01/13/17 06:21; Start 01/12/17 at 12:00 Sodium Chloride 150 meq/Sodium Acetate 60 meq/ Potassium Chloride 60 meq/ Magnesium Sulfate 20 meq/ Multivitamins 10 ml/Chromium/ Copper/Manganese/ Seleni /Zn 1 ml/ Total Parenteral Nutrition/Amino Acids/Dextrose/ Fat Emulsion Intravenous 1,920 ml @ 80 mls/hr TPN CONT IV Last administered on 01/12/17t 21 :52; Start 01/12/17 at 22:00 Diphenhydramine HCl (Benadryl) 25 mg PRN Q6HRS PRN PO ITCHING; Start 01/12/17 at 19:15 Active Scripts Active Amlodipine Besylate 5 Mg Tablet 10 Mg PO DAILY 30 Days Sertraline Hcl 50 Mg Tablet 50 Mg PO DAILY 30 Days Famotidine 20 Mg Tablet 20 Mg PO BID 60 Days Lidocaine 35.44 Gm Oint...g. 1 Sang TP BID Reported Zofran Odt (Ondansetron) 4 Mg Tab.rapdis 1 Tab SL PRN Q8HRS PRN Zinc Oxide 56.7 Gm Oint...g. 56.7 Gm TP PRN BID Dilaudid (Hydromorphone Hcl) 2 Mg Tablet 1 Tab PO PRN QID PRN Lorazepam 0.5 Mg Tablet 0.5 Mg PO Q6HRS PRN Vitals/I & O Vital Sign - Last 24 Hours 01/12/17 01/12/17 01/12/17 01/12/17 11:00 15:00 19:00 20:00 Temp 98.1 97.9 98.0 98.1 97.9 98.0 Pulse 74 80 92 Resp 17 18 20 B/P (MAP) 139/76 (97) 125/80 (95) 147/90 (109) Pulse Ox 100 100 100 O2 Delivery Room Air Room Air Room Air Room Air 01/12/17 01/13/17 01/13/17 01/13/17 23:00 00:26 06:21 07:00 Temp 98.6 98.2 98.6 98.2 Pulse 103 111 Resp 20 20 23 17 B/P (MAP) 148/65 (92) 151/105 (120) Pulse Ox 99 96 O2 Delivery Room Air Room Air Room Air Room Air 01/13/17 01/13/17 07:03 08:27 Pulse 111 Resp 18 B/P (MAP) 151/105 O2 Delivery Room Air Intake and Output 01/12/17 01/12/17 01/13/17 15:00 23:00 07:00 Intake Total 920 ml 800 ml Balance 920 ml 800 ml Nutrition Consultation Dietary Evaluation: Recommendations by RD: PPN/TPN Comments: continue home TPN regimen Expected Outcomes/Goals: wt maintanence Malnutrition Findings: Body Fat Depletion (Non Severe: Mild Depletion Weight Status: Appropriate BENITA LUTZ MD Jan 13, 2017 08:45
[2017-01-13] MEDS: ZINC OXIDE 20% TOPICAL OINTMENT 28GM TUBE. TP SCH ×2 (09:00→20:51)
--- NOTE | 2017-01-13 10:09 | PDOC ---
Infectious Disease Note Subjective Subjective feeling good, c/o diarrhea ROS ROS GEN: Denies fevers, chills, sweats HEENT: Denies blurred vision, sore throat CV: Denies chest pain RESP: Denies shortness of air, cough GI: Denies n/v/ NEURO: Denies confusion, dizziness MSK: Denies weakness, joint pain/swelling Vital Sign Vital Signs Vital Signs Date Time Temp Pulse Resp B/P (MAP) Pulse Ox O2 Delivery O2 Flow Rate FiO2 01/13/17 08:27 111 151/105 01/13/17 07:03 18 Room Air 01/13/17 07:00 98.2 96 98.2 Physical Exam PHYSICAL EXAM GENERAL: NAD, Alert HEENT: PERRL, OC/OP NECK: Supple, no JVD, no LN LUNGS: Clear HEART: S1S2, no gallop, no murmur ABD: Soft, NT, no organomegaly, no rebound, EC fistula EXT: No edema, no cyanosis SPA THERAPIST: Alert, oriented x 3, no focal neurologic deficit SKIN: No rash IV: ok Labs Lab Laboratory Tests Test 01/13/17 07:55 White Blood Count 4.8 x10^3/uL (4.0-11.0) Red Blood Count 3.31 x10^6/uL (3.50-5.40) Hemoglobin 9.2 g/dL (12.0-15.5) Hematocrit 28.8 % (36.0-47.0) Mean Corpuscular Volume 87 fL (79-100) Mean Corpuscular Hemoglobin 28 pg (25-35) Mean Corpuscular Hemoglobin Concent 32 g/dL (31-37) Red Cell Distribution Width 17.7 % (11.5-14.5) Platelet Count 245 x10^3/uL (140-400) Neutrophils (%) (Auto) 65 % (31-73) Lymphocytes (%) (Auto) 19 % (24-48) Monocytes (%) (Auto) 7 % (0-9) Eosinophils (%) (Auto) 8 % (0-3) Basophils (%) (Auto) 1 % (0-3) Neutrophils # (Auto) 3.1 x10^3uL (1.8-7.7) Lymphocytes # (Auto) 0.9 x10^3/uL (1.0-4.8) Monocytes # (Auto) 0.3 x10^3/uL (0.0-1.1) Eosinophils # (Auto) 0.4 x10^3/uL (0.0-0.7) Basophils # (Auto) 0.0 x10^3/uL (0.0-0.2) Sodium Level 136 mmol/L (136-145) Potassium Level 4.4 mmol/L (3.5-5.1) Chloride Level 105 mmol/L (98-107) Carbon Dioxide Level 27 mmol/L (21-32) Anion Gap 4 (6-14) Blood Urea Nitrogen 20 mg/dL (7-20) Creatinine 0.7 mg/dL (0.6-1.0) Estimated GFR (Cockcroft-Gault) 102.9 Glucose Level 130 mg/dL (70-99) Calcium Level 8.7 mg/dL (8.5-10.1) Total Bilirubin 0.4 mg/dL (0.2-1.0) Direct Bilirubin 0.3 mg/dL (0.0-0.2) Aspartate Amino Transf (AST/SGOT) 18 U/L (15-37) Alanine Aminotransferase (ALT/SGPT) 22 U/L (14-59) Alkaline Phosphatase 292 U/L (46-116) Total Protein 8.0 g/dL (6.4-8.2) Albumin 3.0 g/dL (3.4-5.0) Objective Assessment Fever prior to admit Abdominal pain better EC fistula. GNR Entero vesicular fistula Short gut syndrome, on chronic TPN Urine culture has no value since pt has enterovesicular fistula Plan Plan of Care d/w dr Cisneros Maintain hydration JOSSY TATUM MD Jan 13, 2017 10:09
[2017-01-13 10:38] VITALS: BP 162/77
[2017-01-13] MEDS: COLESTIPOL HCL 1 GM TABLET PO SCH ×2 (14:17→21:07)
[2017-01-13 15:00] VITALS: BP 126/75
[2017-01-13] MEDS ORDERED: TPN PER PHARMACY MC PRN (16:45)
[2017-01-13 19:00] VITALS: BP 165/141
[2017-01-13] MEDS ORDERED: DEXTROSE 70% IV SCH ×9 (22:00)
[2017-01-13] MEDS ORDERED: [UNRECOGNIZED DRUG - OTHER] IV SCH ×9 (22:00)
[2017-01-13] MEDS ORDERED: TOTAL PARENTERAL NUTRITION IV SCH ×9 (22:00)
[2017-01-13] MEDS ORDERED: AMINO ACID IV SCH ×9 (22:00)
[2017-01-13 22:56] VITALS: BP 151/72
[2017-01-14] MEDS: HYDROmorphone 2 MG/ML VIAL IV PRN ×3 (02:39→14:57)
[2017-01-14] MEDS: ONDANSETRON PF 4 MG/2 ML VIAL. IV SCH ×3 (05:38→12:00)
[2017-01-14 07:00] VITALS: BP 141/59
[2017-01-14 07:04] LABS: CALCIUM 9.2 mg/dL (8.5-10.1); CREATININE 0.7 mg/dL (0.6-1.0); GFR 102.9; POTASSIUM 4.4 mmol/L (3.5-5.1)
[2017-01-14 07:06] LABS: BASO # 0.1 x10^3/uL (0.0-0.2); BASO % 1 % (0-3); EOS % 11 % (0-3); HEMATOCRIT 27.5 % (36.0-47.0); HEMOGLOBIN 8.9 g/dL (12.0-15.5); LYMPH # 1.3 x10^3/uL (1.0-4.8); LYMPH % 28 % (24-48); MEAN CORPUSCULAR HEMOGLOBIN 28 pg (25-35); MEAN CORPUSCULAR HGB CONC 33 g/dL (31-37); MEAN CORPUSCULAR VOLUME 86 fL (79-100); MONO % 8 % (0-9); NEUT % 52 % (31-73); PLATELET COUNT 259 x10^3/uL (140-400); RED BLOOD COUNT 3.19 x10^6/uL (3.50-5.40); RED CELL DISTRIBUTION WIDTH 17.1 % (11.5-14.5); WHITE BLOOD COUNT 4.5 x10^3/uL (4.0-11.0)
--- NOTE | 2017-01-14 08:33 | PDOC ---
PROGRESS NOTES Subjective Subjective had 4 loose stools yesterday. stool neg for c. diff toxin. lab reviewed. temp 99.5 last night but afebrile this morning. WBC normal. has bilateral LE edema worse on left. will order bilateral venous doppler LE and if negative will dismiss today. Objective Objective Vital Signs Date Time Temp Pulse Resp B/P (MAP) Pulse Ox O2 Delivery O2 Flow Rate FiO2 01/14/17 07:00 97.7 105 18 141/59 (86) 98 Room Air 97.7 Intake and Output 01/14/17 07:00 Intake Total 2160 ml Output Total 1 ml Balance 2159 ml Intake Oral 240 ml IV Total 1920 ml Urine/Stool Mix 1 ml # Voids 3 Physical Exam Abdomen: Soft Heart: Regular rate, Normal S1, Normal S2 Extremities: Other (1 plus edema bilateral LE worse on left) General: Alert HEENT: Atraumatic Lungs: Clear to auscultation Neuro: Normal speech Psych/Mental Status: Mental status NL Skin: No rashes Assessment Assessment ProblemsFever resolved 2. Enterocutaneous fistula. 3. Enterovesical fistula. 4. Hypokalemia.resolved 5. Nausea and vomiting 6. Abdominal pain.improved 7. Hypertension. 8. Anemia of chronic disease. e. coli in urine with enterovesical fistula. not treating diarrhea better. c. diff negative bilateral LE edema Medical Problems: (1) Fever Status: Acute (2) Fistula Status: Acute (3) Intractable abdominal pain Status: Acute Plan Plan of Care bilateral LE venous doppler dismiss today if doppler negative continue colestid for 3 more days decrease po intake continue TPN Comment Review of Relevant I have reviewed the following items lucila (where applicable) has been applied. Labs Laboratory Tests Test 01/13/17 07:55 01/13/17 09:50 01/14/17 06:40 White Blood Count 4.8 x10^3/uL (4.0-11.0) 4.5 x10^3/uL (4.0-11.0) Red Blood Count 3.31 x10^6/uL (3.50-5.40) 3.19 x10^6/uL (3.50-5.40) Hemoglobin 9.2 g/dL (12.0-15.5) 8.9 g/dL (12.0-15.5) Hematocrit 28.8 % (36.0-47.0) 27.5 % (36.0-47.0) Mean Corpuscular Volume 87 fL (79-100) 86 fL (79-100) Mean Corpuscular Hemoglobin 28 pg (25-35) 28 pg (25-35) Mean Corpuscular Hemoglobin Concent 32 g/dL (31-37) 33 g/dL (31-37) Red Cell Distribution Width 17.7 % (11.5-14.5) 17.1 % (11.5-14.5) Platelet Count 245 x10^3/uL (140-400) 259 x10^3/uL (140-400) Neutrophils (%) (Auto) 65 % (31-73) 52 % (31-73) Lymphocytes (%) (Auto) 19 % (24-48) 28 % (24-48) Monocytes (%) (Auto) 7 % (0-9) 8 % (0-9) Eosinophils (%) (Auto) 8 % (0-3) 11 % (0-3) Basophils (%) (Auto) 1 % (0-3) 1 % (0-3) Neutrophils # (Auto) 3.1 x10^3uL (1.8-7.7) 2.3 x10^3uL (1.8-7.7) Lymphocytes # (Auto) 0.9 x10^3/uL (1.0-4.8) 1.3 x10^3/uL (1.0-4.8) Monocytes # (Auto) 0.3 x10^3/uL (0.0-1.1) 0.3 x10^3/uL (0.0-1.1) Eosinophils # (Auto) 0.4 x10^3/uL (0.0-0.7) 0.5 x10^3/uL (0.0-0.7) Basophils # (Auto) 0.0 x10^3/uL (0.0-0.2) 0.1 x10^3/uL (0.0-0.2) Sodium Level 136 mmol/L (136-145) 137 mmol/L (136-145) Potassium Level 4.4 mmol/L (3.5-5.1) 4.4 mmol/L (3.5-5.1) Chloride Level 105 mmol/L (98-107) 103 mmol/L (98-107) Carbon Dioxide Level 27 mmol/L (21-32) 25 mmol/L (21-32) Anion Gap 4 (6-14) 9 (6-14) Blood Urea Nitrogen 20 mg/dL (7-20) 22 mg/dL (7-20) Creatinine 0.7 mg/dL (0.6-1.0) 0.7 mg/dL (0.6-1.0) Estimated GFR (Cockcroft-Gault) 102.9 102.9 Glucose Level 130 mg/dL (70-99) 101 mg/dL (70-99) Calcium Level 8.7 mg/dL (8.5-10.1) 9.2 mg/dL (8.5-10.1) Total Bilirubin 0.4 mg/dL (0.2-1.0) Direct Bilirubin 0.3 mg/dL (0.0-0.2) Aspartate Amino Transf (AST/SGOT) 18 U/L (15-37) Alanine Aminotransferase (ALT/SGPT) 22 U/L (14-59) Alkaline Phosphatase 292 U/L (46-116) Total Protein 8.0 g/dL (6.4-8.2) Albumin 3.0 g/dL (3.4-5.0) Clostridium difficile Toxin (PCR) Negative (Negative) Laboratory Tests Test 01/13/17 09:50 01/14/17 06:40 Clostridium difficile Toxin (PCR) Negative (Negative) White Blood Count 4.5 x10^3/uL (4.0-11.0) Red Blood Count 3.19 x10^6/uL (3.50-5.40) Hemoglobin 8.9 g/dL (12.0-15.5) Hematocrit 27.5 % (36.0-47.0) Mean Corpuscular Volume 86 fL (79-100) Mean Corpuscular Hemoglobin 28 pg (25-35) Mean Corpuscular Hemoglobin Concent 33 g/dL (31-37) Red Cell Distribution Width 17.1 % (11.5-14.5) Platelet Count 259 x10^3/uL (140-400) Neutrophils (%) (Auto) 52 % (31-73) Lymphocytes (%) (Auto) 28 % (24-48) Monocytes (%) (Auto) 8 % (0-9) Eosinophils (%) (Auto) 11 % (0-3) Basophils (%) (Auto) 1 % (0-3) Neutrophils # (Auto) 2.3 x10^3uL (1.8-7.7) Lymphocytes # (Auto) 1.3 x10^3/uL (1.0-4.8) Monocytes # (Auto) 0.3 x10^3/uL (0.0-1.1) Eosinophils # (Auto) 0.5 x10^3/uL (0.0-0.7) Basophils # (Auto) 0.1 x10^3/uL (0.0-0.2) Sodium Level 137 mmol/L (136-145) Potassium Level 4.4 mmol/L (3.5-5.1) Chloride Level 103 mmol/L (98-107) Carbon Dioxide Level 25 mmol/L (21-32) Anion Gap 9 (6-14) Blood Urea Nitrogen 22 mg/dL (7-20) Creatinine 0.7 mg/dL (0.6-1.0) Estimated GFR (Cockcroft-Gault) 102.9 Glucose Level 101 mg/dL (70-99) Calcium Level 9.2 mg/dL (8.5-10.1) Microbiology 01/08/17 Urine Culture - Final, Complete 01/08/17 Urine Culture Result 1 (ROYA) - Final, Complete 01/08/17 Antimicrobic Susceptibility - Final, Complete Medications Current Medications Hydromorphone HCl (Dilaudid) 1 mg 1X ONCE IV Last administered on 01/08/17 19 :54; Start 01/08/17 at 20:15; Stop 01/08/17 at 20:16; Status DC Ondansetron HCl (Zofran) 4 mg 1X ONCE IV Last administered on 01/08/17 19:54 ; Start 01/08/17 at 20:15; Stop 01/08/17 at 20:16; Status DC Sodium Chloride 500 ml @ 500 mls/hr 1X ONCE IV Last administered on 19:55; Start 01/08/17 at 19:45; Stop 01/08/17 at 20:44; Status DC Hydromorphone HCl (Dilaudid) 1 mg 1X ONCE IV Last administered on 01/08/17 20 :52; Start 01/08/17 at 21:15; Stop 01/08/17 at 21:16; Status DC Hydromorphone HCl (Dilaudid) 1 mg 1X ONCE IV ; Start 01/08/17 at 21:30; Stop at 21:31; Status DC Ondansetron HCl (Zofran) 4 mg PRN Q6HRS PRN IV NAUSEA/VOMITING; Start 01/08/17 at 21:00; Stop 01/09/17 at 08:56; Status DC Linezolid 300 ml @ 300 mls/hr Q12HR IV Last administered on 01/10/17 21:43; Start 01/09/17 at 09:00; Stop 01/11/17 at 08:32; Status DC Piperacillin Sod/ Tazobactam Sod 3.375 gm/Sodium Chloride 50 ml @ 100 mls/hr Q6HRS IV Last administered on 01/11/17 06:12; Start 01/09/17 at 00:00; Stop at 08:32; Status DC Hydromorphone HCl (Dilaudid) 4 mg PRN Q6HRS PRN IV pain Last administered on 02:39; Start 01/08/17 at 21:00 Potassium Chloride/Dextrose/ Sod Cl 1,000 ml @ 125 mls/hr 1X ONCE IV Last administered on 01/08/17 21:30; Start 01/08/17 at 21:45; Stop 01/09/17 at 05:44 ; Status DC Linezolid 300 ml @ 300 mls/hr 1X ONCE IV Last administered on 01/08/17 21:32 ; Start 01/08/17 at 21:45; Stop 01/08/17 at 22:44; Status DC Piperacillin Sod/ Tazobactam Sod 3.375 gm/Sodium Chloride 50 ml @ 100 mls/hr 1X ONCE IV Last administered on 01/08/17 21:34; Start 01/08/17 at 21:45; Stop 01/08/17 at 22:14; Status DC Potassium Chloride/Dextrose/ Sod Cl 1,000 ml @ 100 mls/hr Q10H IV Last administered on 01/09/17 09:14; Start 01/09/17 at 08:45; Stop 01/09/17 at 21:59 ; Status DC Ondansetron HCl (Zofran) 4 mg PRN Q6HRS PRN IV NAUSEA/VOMITING Last administered on 01/11/17 11:50; Start 01/09/17 at 08:45; Stop 01/12/17 at 12:00 ; Status DC Potassium Chloride 50 ml @ 50 mls/hr 1X ONCE IV Last administered on 09:30; Start 01/09/17 at 09:00; Stop 01/09/17 at 09:59; Status DC Famotidine (Pepcid) 20 mg BID PO Last administered on 01/13/17 21:07; Start at 09:00 Zinc Oxide 1 sang BID TP Last administered on 01/13/17 20:51; Start 01/09/17 at 09:00 Lidocaine (Xylocaine) 1 sang BID TP Last administered on 01/13/17 20:51; Start 01/09/17 at 09:00 Lorazepam (Ativan) 0.5 mg PRN Q6HRS PRN PO ANXIETY / AGITATION; Start 01/09/17 at 08:45 Acetaminophen (Tylenol) 650 mg PRN Q6HRS PRN PO MILD PAIN / TEMP; Start at 08:45 Amlodipine Besylate (Norvasc) 5 mg DAILY PO Last administered on 01/10/17 09: 00; Start 01/09/17 at 09:00; Stop 01/11/17 at 09:11; Status DC Zolpidem Tartrate (Ambien) 5 mg PRN QHS PRN PO INSOMNIA Last administered on 23:05; Start 01/09/17 at 09:15 Sodium Chloride 150 meq/Sodium Acetate 60 meq/ Potassium Chloride 100 meq/ Magnesium Sulfate 20 meq/ Multivitamins 10 ml/Chromium/ Copper/Manganese/ Seleni /Zn 1 ml/ Total Parenteral Nutrition/Amino Acids/Dextrose/ Fat Emulsion Intravenous 1,920 ml @ 80 mls/hr TPN CONT IV Last administered on 01/09/17 22:33; Start 01/09/17 at 22:00; Stop 01/10/17 at 21:59; Status DC Info 1 each PRN DAILY PRN MC SEE COMMENTS Last administered on 01/12/17 12:29; Start 01/09/17 at 11:15; Stop 01/13/17 at 10:12; Status DC Potassium Chloride 50 ml @ 25 mls/hr 1X ONCE IV Last administered on 13:11; Start 01/10/17 at 10:00; Stop 01/10/17 at 11:59; Status DC Sodium Chloride 150 meq/Sodium Acetate 60 meq/ Potassium Chloride 100 meq/ Magnesium Sulfate 20 meq/ Multivitamins 10 ml/Chromium/ Copper/Manganese/ Seleni /Zn 1 ml/ Total Parenteral Nutrition/Amino Acids/Dextrose/ Fat Emulsion Intravenous 1,920 ml @ 80 mls/hr TPN CONT IV Last administered on 01/10/17 21:46; Start 01/10/17 at 22:00; Stop 01/11/17 at 09:15; Status DC Dextrose/Sodium Chloride 1,000 ml @ 80 mls/hr [id number] IV Last administered on 01/11/17 09:25; Start 01/11/17 at 09:00; Stop 01/12/17 at 08:51; Status DC Info 1 each PRN DAILY PRN MC SEE COMMENTS; Start 01/11/17 at 09:15; Stop at 09:15; Status DC Amlodipine Besylate (Norvasc) 10 mg DAILY PO Last administered on 01/13/17 08: 27; Start 01/12/17 at 09:00 Sodium Chloride 150 meq/Sodium Acetate 60 meq/ Potassium Chloride 60 meq/ Magnesium Sulfate 20 meq/ Multivitamins 10 ml/Chromium/ Copper/Manganese/ Seleni /Zn 1 ml/ Total Parenteral Nutrition/Amino Acids/Dextrose/ Fat Emulsion Intravenous 1,920 ml @ 80 mls/hr TPN CONT IV Last administered on 01/11/17 21:45; Start 01/11/17 at 22:00; Stop 01/12/17 at 21:59; Status DC Ondansetron HCl (Zofran) 4 mg Q6HRS IV Last administered on 01/13/17 17:14; Start 01/12/17 at 12:00 Sodium Chloride 150 meq/Sodium Acetate 60 meq/ Potassium Chloride 60 meq/ Magnesium Sulfate 20 meq/ Multivitamins 10 ml/Chromium/ Copper/Manganese/ Seleni /Zn 1 ml/ Total Parenteral Nutrition/Amino Acids/Dextrose/ Fat Emulsion Intravenous 1,920 ml @ 80 mls/hr TPN CONT IV Last administered on 01/12/17 21 :52; Start 01/12/17 at 22:00; Stop 01/13/17 at 08:43; Status DC Diphenhydramine HCl (Benadryl) 25 mg PRN Q6HRS PRN PO ITCHING Last administered on 01/13/17 21:11; Start 01/12/17 at 19:15 Colestipol HCl (Colestid) 1 gm BID@10,22 PO Last administered on 01/13/17 21:07 ; Start 01/13/17 at 10:00 Sodium Chloride 150 meq/Sodium Acetate 60 meq/ Potassium Chloride 60 meq/ Magnesium Sulfate 20 meq/ Multivitamins 10 ml/Chromium/ Copper/Manganese/ Seleni /Zn 1 ml/ Total Parenteral Nutrition/Amino Acids/Dextrose/ Fat Emulsion Intravenous 1,920 ml @ 80 mls/hr TPN CONT IV Last administered on 01/13/17 21 :07; Start 01/13/17 at 22:00; Stop 01/14/17 at 21:59 Info 1 each PRN DAILY PRN MC SEE COMMENTS; Start 01/13/17 at 16:45 Active Scripts Active Amlodipine Besylate 5 Mg Tablet 10 Mg PO DAILY 30 Days Sertraline Hcl 50 Mg Tablet 50 Mg PO DAILY 30 Days Famotidine 20 Mg Tablet 20 Mg PO BID 60 Days Lidocaine 35.44 Gm Oint...g. 1 Sang TP BID Reported Zofran Odt (Ondansetron) 4 Mg Tab.rapdis 1 Tab SL PRN Q8HRS PRN Zinc Oxide 56.7 Gm Oint...g. 56.7 Gm TP PRN BID Dilaudid (Hydromorphone Hcl) 2 Mg Tablet 1 Tab PO PRN QID PRN Lorazepam 0.5 Mg Tablet 0.5 Mg PO Q6HRS PRN Vitals/I & O Vital Sign - Last 24 Hours 01/13/17 01/13/17 01/13/17 01/13/17 10:38 15:00 19:00 20:00 Temp 98.3 98.5 98.1 98.3 98.5 98.1 Pulse 92 92 83 Resp 16 16 20 B/P (MAP) 162/77 (105) 126/75 (92) 165/141 (149) Pulse Ox 100 98 95 O2 Delivery Room Air Room Air Room Air Room Air 01/13/17 01/13/17 01/14/17 01/14/17 20:49 22:56 02:39 03:00 Temp 99.5 99.5 Pulse 90 Resp 18 20 20 B/P (MAP) 151/72 (98) Pulse Ox 95 100 100 O2 Delivery Room Air Room Air Room Air Room Air 01/14/17 01/14/17 03:09 07:00 Temp 97.7 97.7 Pulse 105 Resp 18 18 B/P (MAP) 141/59 (86) Pulse Ox 100 98 O2 Delivery Room Air Room Air Intake and Output 01/13/17 01/13/17 01/14/17 15:00 23:00 07:00 Intake Total 2160 ml Output Total 1 ml Balance 2159 ml Nutrition Consultation Dietary Evaluation: Recommendations by RD: PPN/TPN Comments: continue home TPN regimen Expected Outcomes/Goals: wt maintanence Malnutrition Findings: Body Fat Depletion (Non Severe: Mild Depletion Weight Status: Appropriate BENITA LUTZ MD Jan 14, 2017 08:33
[2017-01-14] MEDS: FAMOTIDINE 20 MG TABLET. PO SCH (08:58)
[2017-01-14] MEDS: amLODIPine BESYLATE 5 MG TABLET PO SCH (08:59)
[2017-01-14] MEDS: ZINC OXIDE 20% TOPICAL OINTMENT 28GM TUBE. TP SCH (09:04)
[2017-01-14] MEDS: LIDOCAINE 5% TOPICAL OINTMENT 35GM TUBE. TP SCH (09:04)
--- NOTE | 2017-01-14 09:28 | RAD ---
Bilateral lower extremity venous ultrasound, 01/14/2017: History: Bilateral leg swelling Duplex evaluation of the deep veins in the lower extremities was performed including grayscale, color-flow and spectral Doppler analysis. The femoral and popliteal veins demonstrate normal compressibility and normal responses to distal augmentation maneuvers. Color imaging of those vessels shows no evidence of intraluminal clot. The visualized deep veins in both calves are patent. IMPRESSION: There is no sonographic evidence of deep vein thrombosis in either lower extremity.
[2017-01-14] MEDS: COLESTIPOL HCL 1 GM TABLET PO SCH (09:53)
--- NOTE | 2017-01-14 10:39 | PDOC ---
Infectious Disease Note Subjective Subjective feeling good, ROS ROS GEN: Denies fevers, chills, sweats HEENT: Denies blurred vision, sore throat CV: Denies chest pain RESP: Denies shortness of air, cough GI: Denies n/v/d NEURO: Denies confusion, dizziness MSK: Denies weakness, joint pain/swelling Vital Sign Vital Signs Vital Signs Date Time Temp Pulse Resp B/P (MAP) Pulse Ox O2 Delivery O2 Flow Rate FiO2 01/14/17 08:59 105 141/59 01/14/17 08:50 Room Air 01/14/17 07:00 97.7 18 98 97.7 Physical Exam PHYSICAL EXAM GENERAL: NAD, Alert HEENT: PERRL, OC/OP NECK: Supple, no JVD, no LN LUNGS: Clear HEART: S1S2, no gallop, no murmur ABD: Soft, NT, no organomegaly, no rebound, fistula EXT: No edema, no cyanosis [employer]: Alert, oriented x 3, no focal neurologic deficit SKIN: No rash IV: ok Labs Lab Laboratory Tests Test 01/14/17 06:40 White Blood Count 4.5 x10^3/uL (4.0-11.0) Red Blood Count 3.19 x10^6/uL (3.50-5.40) Hemoglobin 8.9 g/dL (12.0-15.5) Hematocrit 27.5 % (36.0-47.0) Mean Corpuscular Volume 86 fL (79-100) Mean Corpuscular Hemoglobin 28 pg (25-35) Mean Corpuscular Hemoglobin Concent 33 g/dL (31-37) Red Cell Distribution Width 17.1 % (11.5-14.5) Platelet Count 259 x10^3/uL (140-400) Neutrophils (%) (Auto) 52 % (31-73) Lymphocytes (%) (Auto) 28 % (24-48) Monocytes (%) (Auto) 8 % (0-9) Eosinophils (%) (Auto) 11 % (0-3) Basophils (%) (Auto) 1 % (0-3) Neutrophils # (Auto) 2.3 x10^3uL (1.8-7.7) Lymphocytes # (Auto) 1.3 x10^3/uL (1.0-4.8) Monocytes # (Auto) 0.3 x10^3/uL (0.0-1.1) Eosinophils # (Auto) 0.5 x10^3/uL (0.0-0.7) Basophils # (Auto) 0.1 x10^3/uL (0.0-0.2) Sodium Level 137 mmol/L (136-145) Potassium Level 4.4 mmol/L (3.5-5.1) Chloride Level 103 mmol/L (98-107) Carbon Dioxide Level 25 mmol/L (21-32) Anion Gap 9 (6-14) Blood Urea Nitrogen 22 mg/dL (7-20) Creatinine 0.7 mg/dL (0.6-1.0) Estimated GFR (Cockcroft-Gault) 102.9 Glucose Level 101 mg/dL (70-99) Calcium Level 9.2 mg/dL (8.5-10.1) Objective Assessment Fever prior to admit Abdominal pain better EC fistula. GNR Entero vesicular fistula Short gut syndrome, on chronic TPN Urine culture has no value since pt has enterovesicular fistula Plan Plan of Care d/w dr Cisneros Maintain hydration d/c JOSSY Soares MD Jan 14, 2017 10:39
[2017-01-14 11:00] VITALS: BP 127/66
[2017-01-14 14:44] VITALS: BP 136/70
== END 2017-01-14 16:30 | disposition home health service (06) | DRG 394 ==
LOC: ER 19:10 → 5 SOUTH 21:10
PROVIDERS: ADMIT Internal Medicine; ATTEND Internal Medicine
DX: K66.0 Peritoneal adhesions (postprocedural) (postinfection) (principal); N39.0 Urinary tract infection, site not specified; N32.1 Vesicointestinal fistula; K63.2 Fistula of intestine; K91.2 Postsurgical malabsorption, not elsewhere classified; E87.6 Hypokalemia; F32.9 Major depressive disorder, single episode, unspecified; F41.9 Anxiety disorder, unspecified; D63.8 Anemia in other chronic diseases classified elsewhere; I10 Essential (primary) hypertension; Z87.11 Personal history of peptic ulcer disease; Z86.718 Personal history of other venous thrombosis and embolism; Z85.41 Personal history of malignant neoplasm of cervix uteri; Z87.19 Personal history of other diseases of the digestive system; Z90.710 Acquired absence of both cervix and uterus; Z79.899 Other long term (current) drug therapy; Z86.19 Personal history of other infectious and parasitic diseases; Z86.14 Personal history of Methicillin resistant Staphylococcus aureus infection; Z88.1 Allergy status to other antibiotic agents; Z88.5 Allergy status to narcotic agent; Z88.8 Allergy status to other drugs, medicaments and biological substances; Z91.048 Other nonmedicinal substance allergy status; R50.9 Fever, unspecified
CPT/HCPCS: 36415; 71010; 74000; 80048; 80053; 80076; 81001; 83605; 83690; 83735; 84100; 85027; 87086; 87186; 87324; 87641; 93970; 96361; 96365; 96368; 96375; 96376; J1170; J2020; J2405; J2543; J3475; J3480; J7040; J7042; Q0163; 99285-25

== ENCOUNTER 2017-04-22 16:26 | Inpatient (IN) | payer MEDICARE ==
[~2017-04-22] VITALS: Ht 162.6 cm; Wt 58.1 kg
[~2017-04-22 16:26] MED LIST changes: +FENT1PAT15 TD; +ONDA4TAB10 SL
[2017-04-22] MEDS ORDERED: IV NORMAL SALINE 1000ML BAG 1,000 ML IV SCH (17:06)
[2017-04-22] MEDS ORDERED: ONDANSETRON PF 4 MG/2 ML VIAL. IV ONE (17:15)
[2017-04-22 17:19] LABS: BASO # 0.2 x10^3/uL (0.0-0.2); BASO % 3 % (0-3); EOS % 14 % (0-3); HEMATOCRIT 32.8 % (36.0-47.0); HEMOGLOBIN 10.2 g/dL (12.0-15.5); LYMPH # 1.5 x10^3/uL (1.0-4.8); LYMPH % 24 % (24-48); MEAN CORPUSCULAR HEMOGLOBIN 24 pg (25-35); MEAN CORPUSCULAR HGB CONC 31 g/dL (31-37); MEAN CORPUSCULAR VOLUME 76 fL (79-100); MONO % 10 % (0-9); NEUT % 50 % (31-73); PLATELET COUNT 369 x10^3/uL (140-400); RED BLOOD COUNT 4.31 x10^6/uL (3.50-5.40); RED CELL DISTRIBUTION WIDTH 21.5 % (11.5-14.5); WHITE BLOOD COUNT 6.2 x10^3/uL (4.0-11.0)
[2017-04-22] MEDS: fentaNYL PF VIAL 100 MCG/2 ML VIAL IV PRN ×2 (17:28→20:37)
[2017-04-22 17:33] LABS: ANISOCYTOSIS MOD; HYPOCHROMIA SLIGHT; PLT ESTIMATE ADEQUATE (ADEQUATE)
[2017-04-22 17:43] LABS: ALBUMIN 2.1 g/dL (3.4-5.0); ALBUMIN/GLOBULIN RATIO 0.3 (1.0-1.7); CALCIUM 7.9 mg/dL (8.5-10.1); CREATININE 0.7 mg/dL (0.6-1.0); GFR 102.6; TOTAL BILIRUBIN 0.4 mg/dL (0.2-1.0); TOTAL PROTEIN 8.2 g/dL (6.4-8.2)
[2017-04-22 17:45] LABS: BILIRUBIN,URINE LARGE (NEG); GLUCOSE,URINE NEGATIVE (NEG); NITRITE,URINE NEGATIVE (NEG); PROTEIN,URINE 30 mg/dL (NEG-TRACE); UROBILINOGEN,URINE 0.2 mg/dL (0.2 mg/dL)
[2017-04-22 17:48] LABS: CREATINE KINASE 57 U/L (26-192)
[2017-04-22 17:51] LABS: CKMB MASS < 0.5 ng/mL (0.0-3.6); POTASSIUM 2.8 mmol/L (3.5-5.1)
[2017-04-22 17:56] LABS: WBC,URINE 20-40 /HPF (0-4)
[2017-04-22 17:57] LABS: BACTERIA,URINE MANY /HPF (0-FEW); SQUAMOUS EPITHELIAL CELL,UR OCC /LPF
[2017-04-22] MEDS ORDERED: POTASSIUM CHLORIDE 20MEQ 50 ML IV ONE (18:00)
[2017-04-22] MEDS ORDERED: HYDROmorphone 2 MG TABLET PO PRN (18:15)
[2017-04-22] MEDS ORDERED: ONDANSETRON PF 4 MG/2 ML VIAL. IV PRN (18:15)
[2017-04-22] MEDS ORDERED: POTASSIUM CL 40MEQ D5-0.45NACL 1,000 ML IV ONE (18:15)
[2017-04-22] MEDS ORDERED: ZOLPIDEM 5 MG TABLET. PO PRN (18:15)
[2017-04-22] MEDS ORDERED: MAGNESIUM SULFATE 2GM 50 ML IV ONE ×2 (18:30→20:30)
--- NOTE | 2017-04-22 18:32 | PHYS DOC ---
Past Medical History Past Medical History: Anxiety, Cancer, Diverticulitis, Hypertension, UTI, Other Additional Past Medical Histor: abd pain,septicemia, Vesicoenteric fistula, cervical CA; blood clot in [place] Past Surgical History: Hysterectomy, Other Additional Past Surgical Histo: bowel resection, ab fistula Alcohol Use: None Drug Use: None Adult General Chief Complaint Chief Complaint: CHEST PAIN HPI HPI Patient is a 62 year old female who presents with complaint of chest pain and fever. Patient states her symptoms have been present over the past 2 days. The patient has an extensive history of enterocutaneous fistula and has had multiple abdominal surgeries and currently is on TPN for treatment. The patient follows a Dr. Cisneros for her care. The patient states that she has been having increasing weakness over the past 2-3 days and patient is also noted that she has had increased drainage from which she thinks is a new enterocutaneous fistula. Patient states that it has been draining what appears to be feculent material. The patient is complaining of abdominal pain and rates her overall pain as 10 out of 10 currently. Due to worsening symptoms the patient came to the emergency department for further care and treatment. Review of Systems Review of Systems Constitutional: Generalized weakness, denies fever or chills [] Eyes: Denies change in visual acuity, redness, or eye pain [] HENT: Denies nasal congestion or sore throat [] Respiratory: Denies cough or shortness of breath [] Cardiovascular: Chest pain, denies edema[] GI: Abdominal pain, possible fistula in the abdomen, denies vomiting, bloody stools or diarrhea [] : Denies dysuria or hematuria [] Musculoskeletal: Denies back pain or joint pain [] Integument: Denies rash or skin lesions [] Neurologic: Denies headache, focal weakness or sensory changes [] All other systems were reviewed and found to be within normal limits, except as documented in this note. Current Medications Current Medications Current Medications Medications (Trade) Dose Ordered Sig/Alex Start Time Stop Time Status Last Admin Dose Admin Fentanyl Citrate (Fentanyl 2ml Vial) 50 mcg PRN Q15MIN PRN 04/22/17 17:15 04/23/17 17:14 04/22/17 17:28 50 MCG Hydromorphone HCl (Dilaudid) 2 mg PRN Q6HRS PRN 04/22/17 18:15 UNV Info 1 each PRN DAILY PRN 04/22/17 18:30 Lidocaine (Xylocaine) 1 nallely BID 04/22/17 21:00 Linezolid 300 ml @ 300 mls/hr Q12HR 04/22/17 21:00 UNV Magnesium Sulfate/ Dextrose 50 ml @ 25 mls/hr 1X ONCE 04/22/17 18:30 04/22/17 20:29 Ondansetron HCl (Zofran) 4 mg PRN Q8HRS PRN 04/22/17 18:15 04/23/17 18:14 Piperacillin Sod/ Tazobactam Sod 3.375 gm/Dextrose 50 ml @ 100 mls/hr Q6HRS 04/23/17 00:00 UNV Potassium Chloride/Dextrose/ Sod Cl 1,000 ml @ 80 mls/hr 1X ONCE 04/22/17 18:15 04/23/17 06:44 UNV Potassium Chloride 50 ml @ 50 mls/hr 1X ONCE 04/22/17 18:00 04/22/17 18:59 Sodium Chloride 1,000 ml @ 1,000 mls/hr Q1H 04/22/17 17:06 04/22/17 18:05 DC 04/22/17 17:29 1,000 MLS/HR Zinc Oxide 1 nallely BID 04/22/17 21:00 Zolpidem Tartrate (Ambien) 5 mg PRN QHS PRN 04/22/17 18:15 Allergies Allergies Allergies Coded Allergies Type Severity Reaction Last Updated Verified Iodinated Contrast- Oral and IV Dye Allergy Severe Anaphylaxis 12/05/15 Yes vancomycin Allergy Severe Swelling 12/05/15 Yes adhesive tape Allergy Intermediate Rash 12/05/15 Yes silver Allergy Intermediate Rash, Tegaderm film, can have on abd but no where else 12/05/15 Yes codeine Adverse Reaction Severe Nausea and Vomiting 12/11/15 Yes Physical Exam Physical Exam Constitutional: Alert, afebrile, appears in chronically poor health. [] HENT: Normocephalic, atraumatic, bilateral external ears normal, oropharynx moist, no oral exudates, nose normal. [] Eyes: PERRLA, EOMI, conjunctiva normal, no discharge. [] Neck: Normal range of motion, no tenderness, supple, no stridor. [] Cardiovascular: Tachycardia, regular rhythm, no murmur [] Lungs & Thorax: Bilateral breath sounds clear to auscultation [] Abdomen: Bowel sounds normal, soft, extensive scar tissue throughout abdomen, erythema crossed anterior abdomen, upper abdominal fistula with feculent material present, no masses, no pulsatile masses. [] Skin: Warm, dry, no erythema, no rash. [] Back: No tenderness, no CVA tenderness. [] Extremities: No tenderness, no cyanosis, no clubbing, ROM intact, no edema. [] Neurologic: Alert and oriented X 3, normal motor function, normal sensory function, no focal deficits noted. [] Current Patient Data Vital Signs Vital Signs Date Time Temp Pulse Resp B/P (MAP) Pulse Ox O2 Delivery O2 Flow Rate FiO2 04/22/17 17:28 20 04/22/17 17:00 98.3 99 139/85 (103) 99 Room Air 98.3 Lab Values Laboratory Tests Test 04/22/17 16:40 04/22/17 17:38 White Blood Count 6.2 x10^3/uL (4.0-11.0) Red Blood Count 4.31 x10^6/uL (3.50-5.40) Hemoglobin 10.2 g/dL (12.0-15.5) L Hematocrit 32.8 % (36.0-47.0) L Mean Corpuscular Volume 76 fL (79-100) L Mean Corpuscular Hemoglobin 24 pg (25-35) L Mean Corpuscular Hemoglobin Concent 31 g/dL (31-37) Red Cell Distribution Width 21.5 % (11.5-14.5) H Platelet Count 369 x10^3/uL (140-400) Neutrophils (%) (Auto) 50 % (31-73) Lymphocytes (%) (Auto) 24 % (24-48) Monocytes (%) (Auto) 10 % (0-9) H Eosinophils (%) (Auto) 14 % (0-3) H Basophils (%) (Auto) 3 % (0-3) Neutrophils # (Auto) 3.1 x10^3uL (1.8-7.7) Lymphocytes # (Auto) 1.5 x10^3/uL (1.0-4.8) Monocytes # (Auto) 0.6 x10^3/uL (0.0-1.1) Eosinophils # (Auto) 0.8 x10^3/uL (0.0-0.7) H Basophils # (Auto) 0.2 x10^3/uL (0.0-0.2) Platelet Estimate Adequate (ADEQUATE) Hypochromasia Slight Anisocytosis Mod Sodium Level 141 mmol/L (136-145) Potassium Level 2.8 mmol/L (3.5-5.1) *L Chloride Level 103 mmol/L (98-107) Carbon Dioxide Level 30 mmol/L (21-32) Anion Gap 8 (6-14) Blood Urea Nitrogen 8 mg/dL (7-20) Creatinine 0.7 mg/dL (0.6-1.0) Estimated GFR (Cockcroft-Gault) 102.6 BUN/Creatinine Ratio 11 (6-20) Glucose Level 87 mg/dL (70-99) Calcium Level 7.9 mg/dL (8.5-10.1) L Magnesium Level 1.1 mg/dL (1.8-2.4) L Total Bilirubin 0.4 mg/dL (0.2-1.0) Aspartate Amino Transferase (AST) 38 U/L (15-37) H Alanine Aminotransferase (ALT) 24 U/L (14-59) Alkaline Phosphatase 201 U/L (46-116) H Creatine Kinase 57 U/L (26-192) Creatine Kinase MB (Mass) < 0.5 ng/mL (0.0-3.6) Creatine Kinase MB Relative Index 0.9 % (0-4) Troponin I Quantitative < 0.017 ng/mL (0.000-0.055) Total Protein 8.2 g/dL (6.4-8.2) Albumin 2.1 g/dL (3.4-5.0) L Albumin/Globulin Ratio 0.3 (1.0-1.7) L Lipase 54 U/L (73-393) L Urine Collection Type U cath Urine Color Dk yellow Urine Clarity Turbid Urine pH 6.0 Urine Specific Challenge 1.010 Urine Protein 30 mg/dL (NEG-TRACE) Urine Glucose (UA) Negative mg/dL (NEG) Urine Ketones (Stick) Negative mg/dL (NEG) Urine Blood Large (NEG) Urine Nitrite Negative (NEG) Urine Bilirubin Large (NEG) Urine Urobilinogen Dipstick 0.2 mg/dL (0.2 mg/dL) Urine Leukocyte Esterase Moderate (NEG) Urine RBC 1-2 /HPF (0-2) Urine WBC 20-40 /HPF (0-4) Urine Squamous Epithelial Cells Occ /LPF Urine Transitional Epithelial Cells Occ /LPF Urine Bacteria Many /HPF (0-FEW) Urine Mucus Mod /LPF Laboratory Tests 04/22/17 16:40 Laboratory Tests 04/22/17 16:40 EKG EKG Interpreted by me: Heart rate 95, sinus rhythm, normal intervals, normal axis, no acute ST/T-wave abnormalities present[] Radiology/Procedures Radiology/Procedures 3 view acute abdominal series interpreted by me: Nonobstructive bowel gas pattern, no free air under the diaphragm, no pulmonary infiltrates or effusions[ ] Course & Med Decision Making Course & Med Decision Making Pertinent Labs and Imaging studies reviewed. (See chart for details) The patient was shown to have a significantly low potassium and magnesium level and was started on IV supplementation through her subclavian PICC line. The patient was also started on IV antibiotic therapy after speaking with Dr. Cisneros who asked that the patient be started on Zyvox and Zosyn given the patient's extensive history of infections and episodes of sepsis. The patient is a complex medical case and will require further treatment in hospital. Patient admitted to Dr. Cisneros. A consult was placed to Dr. Suggs of infectious disease to follow with patient in hospital. Dragon Disclaimer Dragon Disclaimer This electronic medical record was generated, in whole or in part, using a voice recognition dictation system. Departure Departure Impression: Primary Impression: UTI (urinary tract infection) Additional Impressions: Hypokalemia Hypomagnesemia Enterocutaneous fistula Severe protein-calorie malnutrition Disposition: ADMITTED INPATIENT Admitting Physician: Other Condition: STABLE Referrals: BENITA CISNEROS MD (PCP) Problem Qualifiers Primary Impression: UTI (urinary tract infection) Urinary tract infection type: site unspecified Hematuria presence: without hematuria Qualified Codes: N39.0 - Urinary tract infection, site not specified RAI GOLDMAN MD Apr 22, 2017 18:32
[2017-04-22] MEDS: PIPERACILLIN/TAZO IV Push 3.375 GM VIAL. IVP SCH (19:15)
[2017-04-22] MEDS: POTASSIUM CHLORIDE 20MEQ 50 ML IV SCH ×3 (20:38→23:05)
[2017-04-22 21:20] VITALS: BP 137/87
[2017-04-22] MEDS: ZINC OXIDE 20% TOPICAL OINTMENT 28GM TUBE. TP SCH (21:36)
[2017-04-22] MEDS: LIDOCAINE 5% TOPICAL OINTMENT 35GM TUBE. TP SCH (21:36)
[2017-04-22] MEDS: HYDROmorphone 2 MG/ML VIAL IV PRN (23:01)
[2017-04-22 23:59] VITALS: BP 137/87
[2017-04-23] MEDS ORDERED: PIPERACILLIN/TAZOBACTAM 3.375 GM in IV DEXTROSE 5% 50 ML IV SCH ×2
[2017-04-23] MEDS: PIPERACILLIN/TAZO IV Push 3.375 GM VIAL. IVP SCH ×4 (01:00→20:26)
[2017-04-23 03:52] VITALS: BP 124/74
[2017-04-23] MEDS: HYDROmorphone 2 MG/ML VIAL IV PRN ×2 (06:18→18:00)
--- NOTE | 2017-04-23 06:24 | EKG ---
[facility] [address] [place] [address] Test Date: 2017-04-22 Test Time: 16:42:20 Pat Name: HERMAN MONCADA Department: Room: [facility] Gender: F Lining Layer: : 1955 Requested By: RAI GOLDMAN Order Number: [id number] Reading MD: Kun Sewell MD Measurements Intervals [place] Rate: 95 P: 56 VT: 152 QRS: 46 QRSD: 74 T: 58 QT: 360 QTc: 456 Interpretive Statements SINUS RHYTHM Electronically Signed On 04-26-2017 10:49:01 SENIOR SOFTWARE ENGINEER by Kun Sewell MD
[2017-04-23 06:46] LABS: CALCIUM 7.6 mg/dL (8.5-10.1); CREATININE 0.6 mg/dL (0.6-1.0); GFR 122.6; POTASSIUM 3.6 mmol/L (3.5-5.1)
[2017-04-23 06:52] LABS: BASO % 1 % (0-3); EOS % 17 % (0-3); HEMATOCRIT 27.8 % (36.0-47.0); HEMOGLOBIN 8.7 g/dL (12.0-15.5); LYMPH # 1.2 x10^3/uL (1.0-4.8); LYMPH % 27 % (24-48); MEAN CORPUSCULAR HEMOGLOBIN 24 pg (25-35); MEAN CORPUSCULAR HGB CONC 31 g/dL (31-37); MEAN CORPUSCULAR VOLUME 76 fL (79-100); MONO % 12 % (0-9); NEUT % 43 % (31-73); PLATELET COUNT 320 x10^3/uL (140-400); RED BLOOD COUNT 3.69 x10^6/uL (3.50-5.40); RED CELL DISTRIBUTION WIDTH 21.1 % (11.5-14.5); WHITE BLOOD COUNT 4.4 x10^3/uL (4.0-11.0)
[2017-04-23 07:14] VITALS: BP 149/54
--- NOTE | 2017-04-23 07:26 | RAD ---
Two-view abdominal series and AP upright chest x-ray History: Chest pain and abdominal pain. Burning chest pain for one and half days. Comparison: January 09, 2017 abdominal series and chest x-ray dated September 10, 2016. Findings: Multiple surgical clips are seen within the lower abdomen and pelvis. Bilateral hip screws are seen. No obstructive bowel pattern is seen. No significant air-fluid levels are seen. No free intraperitoneal air is seen. Chest x-ray demonstrates no new lung infiltrate or pulmonary edema or pleural effusion or pneumothorax. The heart size and pulmonary vasculature and mediastinum and both alma are unremarkable. Right-sided central line is unchanged in position. IMPRESSION: No acute radiographic abnormality.
[2017-04-23] MEDS: ZINC OXIDE 20% TOPICAL OINTMENT 28GM TUBE. TP SCH ×2 (09:22→21:00)
[2017-04-23] MEDS: LIDOCAINE 5% TOPICAL OINTMENT 35GM TUBE. TP SCH ×2 (09:22→21:00)
[2017-04-23] MEDS ORDERED: ACETAMINOPHEN 325 MG TABLET. PO PRN (10:15)
--- NOTE | 2017-04-23 10:24 | PDOC ---
Provider Note Provider Note history and physical dictated # [id number] BENITA LUTZ MD Apr 23, 2017 10:24
--- NOTE | 2017-04-23 10:44 | PDOC ---
Provider Note Provider Note Pt seen dictated [id number] IMP: 1. Fever and chills prior to admit.improving 2. Abdominal pain,Increased EC fistula drainage, improving 3. Vancomycin allergy. 4. Irritant contact dermatitis of abdomen from enterocutaneous fistula drainage. 5. Chronic total parenteral nutrition therapy. 6. Enterocutaneous and enterovesical fistulas. 7. H/O Multiple Line infections in the past 8.Current Powered Line Rt Chest since last August 2016 PLAN: Clinically improving. Continue with Zyvox and Zosyn for now. We will follow up on morning laboratory values and blood cultures. Supportive care. AUGIE TATUM MD Apr 23, 2017 10:43
--- NOTE | 2017-04-23 11:10 | HP ---
ADMIT DATE: 04/23/2017 LOCATION: She is in room 664. HISTORY OF PRESENT ILLNESS: The patient is a 62-year-old -Irish female with a history of enterocutaneous fistula and enterovesical fistula, who is maintained on home total parenteral nutrition and notes in the last week or two that she has not been feeling well, with various symptoms including dysuria, some difficulty urinating, nausea, abdominal discomfort and fever up to 101 degrees the other day. Yesterday, she did not feel well at all and went to the [facility] Emergency Room. She is cared for by a visiting nurse and she did have a urine culture done and the urinalysis showed pyuria and the urine culture did grow, I believe, E. coli and it was sensitive to ceftriaxone, which is Rocephin. Urine culture actually came back yesterday, the day of her admission. She is therefore admitted for further evaluation of the aforementioned symptoms. In the Emergency Room, magnesium was quite low and the potassium was low at 2.8 and she received IV magnesium and IV potassium. The potassium was 2.8 yesterday and magnesium was low at 1.1. She said she had some loose stools on occasion 2 weeks ago, but not since that time and denies any vomiting, although she had some nausea. She is therefore admitted for further evaluation of the aforementioned symptoms. ALLERGIES AND INTOLERANCES: INCLUDE IV IODINE, ORAL IODINE, ADHESIVE TAPE, CODEINE, SILVER AND VANCOMYCIN. MEDICATIONS PRIOR TO ADMISSION: Include amlodipine 10 mg every day, Dilaudid 2 mg q.i.d. p.r.n., famotidine 20 mg b.i.d., fentanyl 25 mcg patch every 72 hours, Lidoderm ointment followed by zinc oxide applied to her abdominal wall, lorazepam 0.5 mg every 6 hours p.r.n., melatonin 3 mg at bedtime, sertraline 50 mg every day, Tylenol 325 mg 1-2 q. 6 hours p.r.n. and Zofran 4 mg p.o. q. 6 hours p.r.n. plus her TPN at home. PAST MEDICAL HISTORY: Past history is significant for an enterocutaneous fistula and she has had about 5 abdominal procedures to reverse it, all of which have failed. She also has an enterovesical fistula. She has a history of depression and diverticulosis. She had erosive esophagitis and gastritis in 2012. She has a history of hypertension. She also has a history of peptic ulcer disease in the past and recurrent sepsis. She has a PICC line. SOCIAL HISTORY: She does not drink alcohol nor does she smoke cigarettes. She has a visiting nurse from home health daily and has TPN. FAMILY HISTORY: Noncontributory. REVIEW OF SYSTEMS: GENERAL: She had some fever. CARDIOVASCULAR: She had some chest discomfort which occurred with eating. PULMONARY: No cough or shortness of breath. GASTROINTESTINAL: She had some nausea. She had loose stools x 1 two weeks ago. ENDOCRINE: No diabetes mellitus. NEUROLOGIC: No focal weakness. SKIN: No rashes. Rest of systems reviewed are negative, except as stated in the history of present illness. PHYSICAL EXAMINATION: VITAL SIGNS: Temperature is 97.4 degrees, pulse is 73, respiratory rate 18, blood pressure 149/54 and oxygen saturation 100% room air. HEENT: Eyes, gaze is conjugate. Mouth, tongue is midline. NECK: Shows no cervical lymphadenopathy or thyroid enlargement. HEART: Reveals an S1, S2. There is no S3 or murmur. LUNGS: Clear. ABDOMEN: Soft. She has got some excoriation, which is chronic in her abdominal wall due to her enterocutaneous fistula. Abdomen is not distended. LOWER EXTREMITIES: Without edema. SKIN: No rashes. NEUROLOGICAL EXAMINATION: Revealed no focal weakness of the extremities or facial asymmetry and she is coherent. LABORATORY DATA: Review of her labs, her white count was 6.2, hemoglobin 10.2 with a platelet count of 369,000, 50 polys and 24 lymphocytes. Today, the hemoglobin is 8.7 and platelet count of 320,000 with 43 polys and 27 lymphocytes. Sodium 141, potassium low at 2.8, chloride 103, total CO2 of 30, BUN 8 and creatinine 0.7. Liver function tests showed alkaline phosphatase of 201, SGOT of 84. Other liver tests were normal. Albumin low at 2.1. Lipase 54. Today, the sodium is 141, potassium 3.6, chloride 108, total CO2 of 28. Magnesium was 1.1 last night and it was not repeated. Troponin levels negative x 1. EKG showed no acute change. Acute abdominal series was negative. ASSESSMENT: 1. Fever, although she is afebrile now. 2. Dysuria with urinary tract infection, although it is difficult to interpret that as she has an enterovesical fistula. 3. Abdominal pain. 4. Enterocutaneous fistula. 5. Enterovesical fistula. 6. Hypokalemia. 7. Hypomagnesemia. 8. Severe protein-calorie malnutrition. 9. Hypertension. PLAN: Plan at this time is to consult Dr. Garcia Suggs from Infectious Disease. Wait for blood and urine cultures to come back. She did have a urinalysis which showed 20-40 white cells in the setting of an enterovesical fistula and had 1-2 red blood cells. We will continue with IV Zosyn and the IV Zyvox and her TPN will be started later today when it is available. I spoke with the pharmacist and we will discontinue the IV fluids once the TPN is started. We will also repeat her labs tomorrow, including a CBC, BMP and a magnesium level. Wait for the culture results. Get a CAT scan of the abdomen and pelvis without IV contrast. We will restart her amlodipine and other home medications. BENITA LUTZ MD DR: NABILA/jd JOB#: [id number] / [id number]
[2017-04-23 11:34] VITALS: BP 138/72
[2017-04-23] MEDS: SERTRALINE 50 MG TABLET. PO SCH (12:29)
[2017-04-23] MEDS: fentaNYL 25MCG/HR PATCH 1 PATCH PATCH.TD72 TD SCH (12:29)
[2017-04-23] MEDS: amLODIPine BESYLATE 10 MG TABLET PO SCH (12:29)
[2017-04-23] MEDS: FAMOTIDINE 20 MG TABLET. PO SCH ×2 (12:30→20:26)
[2017-04-23] MEDS ORDERED: MAGNESIUM SULFATE 2GM 50 ML IV ONE (13:00)
[2017-04-23] MEDS: TPN PER PHARMACY MC PRN ×4 (13:04→13:50)
[2017-04-23 15:39] VITALS: BP 127/73
--- NOTE | 2017-04-23 17:08 | RAD ---
CT study of the abdomen and pelvis without contrast Clinical indications: Abdominal pain and enterocutaneous fistula. Technique: Noncontrast helical CT scanning of the abdomen and pelvis was performed. Without contrast, the sensitivity to detect organ pathology and GI tract pathology is decreased. PQRS Compliance Statement: One or more of the following individualized dose reduction techniques were utilized for this examination: 1. Automated exposure control 2. Adjustment of the mA and/or kV according to patient size 3. Use of iterative reconstruction technique Comparison: February 12, 2017. Findings: The liver and spleen and pancreas are homogeneous in appearance on this noncontrast study. The gallbladder is surgically absent. No extrahepatic biliary ductal dilatation is seen. No hydronephrosis or hydroureter is seen on either side. The bowel anatomy is difficult to determine given the lack of IV and GI contrast material. Evaluation for extraluminal fluid collection such as an abscess is difficult. Multiple surgical clips are seen within the abdomen and pelvis. The stomach is distended and extends into the lower abdomen and then courses back up towards towards the liver. There is wall thickening of the distal body and antrum of the stomach. Gastritis is certainly possible. There is no small bowel dilatation. Urinary bladder is mildly distended and there is a bubble of air within it. Therefore, bowel bladder fistula is certainly possible. There is an anterior abdominal wall midline incision with soft tissue thickening. A loop of bowel is seen extending towards the lower portion of the anterior midline abdominal wall incision. This could be a source for enterocutaneous fistula. The uterus is surgically absent. No free air or obvious free fluid is seen. There is wall thickening of the distal esophagus which could be secondary to reflux esophagitis. No lung base consolidation is evident. No osteolytic process is seen. IMPRESSION: Difficult study to interpret given lack of IV and GI contrast material and the multiple surgeries. There is an anterior abdominal wall midline incision with soft tissue thickening. There is a question of a small fluid collection within the anterior abdominal wall incision measuring 15 mm. This is seen on image 34 and series 2. Small anterior abdominal wall abscess is possible here. This was not seen previously. A loop of bowel is seen extending towards the lower portion of the incision. This could potentially be a source for enterocutaneous fistula. In addition, there is a small bubble of air within the urinary bladder. Therefore bowel fistula is possible. Bladder is not distended. Circumferential wall thickening of the urinary bladder may be due to lack of distention but could be seen with cystitis as well. Distention of the stomach. Wall thickening of the distal body and antrum of the stomach. Gastritis is possible. Wall thickening of the distal esophagus. This may be seen with reflux esophagitis.
[2017-04-23 19:20] VITALS: BP 93/56
[2017-04-23] MEDS ORDERED: [UNRECOGNIZED DRUG - OTHER] IV SCH ×8 (22:00)
[2017-04-23] MEDS ORDERED: DEXTROSE 70% IV SCH ×17 (22:00)
[2017-04-23] MEDS ORDERED: AMINO ACIDS IV SCH ×17 (22:00)
[2017-04-23] MEDS ORDERED: [UNRECOGNIZED DRUG - OTHER] IV SCH ×9 (22:00)
[2017-04-23] MEDS ORDERED: TOTAL PARENTERAL NUTRITION IV SCH ×17 (22:00)
[2017-04-23] MEDS: LORazepam 0.5 MG TABLET PO PRN (22:13)
[2017-04-23 23:25] VITALS: BP 160/86
--- NOTE | 2017-04-24 00:15 | CONS ---
DATE OF CONSULTATION: 04/23/2017 REFERRING PHYSICIAN: Roderick Cisneros M.D. REASON FOR CONSULTATION: UTI. HISTORY OF PRESENT ILLNESS: A 62-year-old -[place]ian female well known to our service from previous admission. The patient had complains of chest pain and fever of 2 days' duration. She started having worsening weakness over the last few days with some pressure while passing urine with some dysuria. She also noted some increased drainage from her enterocutaneous fistula. She has been draining what appears like feculent material from her enterocutaneous fistula. She also had some abdominal pain and due to worsening, presented to the ER. She was admitted to medical floor and was started on IV Zosyn and Zyvox. The patient has a very complicated medical history with enterocutaneous fistula and enterovesical fistula over a long period of time. White count was normal. Abdominal x-ray shows no obstructive bowel pattern. No significant air-fluid level seen. No free intraperitoneal air is seen. Multiple surgical clips are seen within the lower abdomen and pelvis. Chest x-ray demonstrated no new infiltrate or pulmonary edema or pleural effusion or pneumothorax. The heart size and pulmonary vasculature, mediastinum and both alma are unremarkable. Right-sided central line is unchanged in position. UA showed dark yellow urine, large blood, large bilirubin, moderate leukocyte esterase, wbc's 20-40, many bacteria and moderate mucus. Since admission, the patient states that she is feeling much better. She denies any further fevers or chills, no nausea, no vomiting, no diarrhea, no sinus congestion, no sore throat, no wheezing, no chest pain, no chest pain with deep breathing, no palpitation and no leg swelling. She does have some abdominal discomfort but is improving. She has some pressure while she is passing urine. She has increased skin excoriation around the fistula site for which she used to try to control it with her trouble, which is dry at this time. She denies any generalized rash, muscle aches or joint pains. PAST MEDICAL HISTORY: 1. MRSA bacteremia, multiple line infections including Klebsiella pneumoniae, Staph warneri and Judi glabrata fungemia. 2. E. coli and Enterobacter aerogenes, Enterococcus faecium penicillin resistant and Enterococcus faecalis in the urine. 3. Enterocutaneous fistula and enterovesical fistula, on chronic home TPN. 4. Anemia of chronic disease. 5. Hypertension. 6. Depression. 7. Esophagitis. 8. Deep venous thrombosis in 2010. 9. Diverticulosis and diverticulitis. 10. Peptic ulcer disease. PAST SURGICAL HISTORY: 1. Appendectomy. 2. Cholecystectomy. 3. Tonsillectomy. 4. Hysterectomy. 5. Jejunostomy followed by reversal. 6. Ileostomy followed by reversal. 7. Five unsuccessful abdominal enterovesical fistula repairs. 8. Tunneled central power line on 08/31/2016. SOCIAL HISTORY: The patient lives at home. Nonsmoker. No alcohol. FAMILY HISTORY: As in H and P. ALLERGIES: VANCOMYCIN, ORAL and IV CONTRAST DYE, ADHESIVE TAPE, CODEINE and SILVER and IV VANCOMYCIN allergies, severe with swelling. CURRENT MEDICATIONS: Zyvox, piperacillin and tazobactam. Other medications are available and reviewed on the AUG. REVIEW OF SYSTEMS: Per HPI, otherwise negative. PHYSICAL EXAMINATION: GENERAL: Alert, oriented x 3. Nigerian- female, propped up in bed, in no acute distress, appears comfortable. VITAL SIGNS: T-max 97.8, current temperature 97.4, pulse 73, respiratory 18, blood pressure 149/54 and oxygen saturation 100% on room air. HEENT: Normocephalic and atraumatic. Oral mucosa moist. Tongue midline. NECK: Supple. No JVD. LUNGS: Clear to auscultation and percussion bilaterally. HEART: S1 and S2 present. ABDOMEN: Soft and nondistended. Bowel sounds present. Marked skin excoriation present diffuse. EC fistula drainage noted. EXTREMITIES: No pedal edema or cyanosis. DERMATOLOGICAL: Without rash. NEUROLOGICAL: Alert and oriented x 3. LINES: Right tunneled central power line noted, clean. LABORATORY DATA: WBC 4.4, hemoglobin 8.7, hematocrit 27.8, platelets 320 and neutrophil 43%. Sodium 141, potassium 3.6, chloride 108, bicarbonate 28, BUN 5, creatinine 0.6and glucose 82. Calcium 7.6, total bilirubin 0.4, AST 38, ALT 24, alkaline phosphatase 201, albumin 2.1 and lipase 54. Troponin less than 0.17. CK 57, magnesium 1.1. UA shows large bilirubin, large blood, 20-40 wbc's, 1-2 rbc's, leukocyte esterase moderate and many bacteria. RADIOLOGICAL DATA: Acute abdominal series, findings: Multiple surgical clips are seen within the lower abdomen and pelvis. Bilateral hip screws are seen. No obstructive bowel pattern is seen. No significant air-fluid levels are seen. No free intraperitoneal air is seen. Chest x-ray demonstrates no new lung infiltrate or pulmonary edema or pleural effusion or pneumothorax. The heart size and pulmonary vascular and mediastinum and both alma are unremarkable. Right-sided central line is unchanged in position, no acute radiographic abnormality noted. IMPRESSION: 1. Fevers and chills prior to admit, now resolved. 2. Pyuria. 3. Irritant contact dermatitis of abdomen for an enterocutaneous fistula drainage. 4. History of intravenous vancomycin allergy. 5. Chronic total parenteral nutrition therapy. 6. Enterocutaneous and enterovesical fistula. 7. History of methicillin-resistant Staphylococcus aureus, Enterobacter klebsiella line infections. 8. History of E. coli and Enterobacter aerogenes, Enterococcus faecium ampicillin resistant and Enterococcus faecalis in the urine. 9. Anemia of chronic disease. 10. Hypertension. 11. Depression. 12. Esophagitis. 13. History of deep venous thrombosis in 2010. 14. History of diverticulosis and peptic ulcer disease. RECOMMENDATIONS: 1. Clinically improving. 2. Continue Zyvox and Zosyn for now. 3. We will follow up a.m. labs and culture results. 4. Continue supportive care. Thank you, Dr. Cisneros to participate in this patient's care, please contact us if you have any questions or concerns. AUGIE TATUM MD DR: LJ/jd JOB#: [id number] / [id number] ROHITH
[2017-04-24] MEDS: HYDROmorphone 2 MG/ML VIAL IV PRN ×3 (01:57→17:46)
[2017-04-24] MEDS: PIPERACILLIN/TAZO IV Push 3.375 GM VIAL. IVP SCH ×4 (06:00→17:43)
[2017-04-24 07:00] VITALS: BP 158/53
[2017-04-24] MEDS: FAMOTIDINE 20 MG TABLET. PO SCH ×2 (08:14→20:06)
[2017-04-24 08:15] LABS: BASO # 0.1 x10^3/uL (0.0-0.2); BASO % 3 % (0-3); EOS % 14 % (0-3); HEMATOCRIT 33.1 % (36.0-47.0); HEMOGLOBIN 10.3 g/dL (12.0-15.5); LYMPH % 27 % (24-48); MEAN CORPUSCULAR HEMOGLOBIN 24 pg (25-35); MEAN CORPUSCULAR HGB CONC 31 g/dL (31-37); MEAN CORPUSCULAR VOLUME 77 fL (79-100); MONO % 10 % (0-9); NEUT % 45 % (31-73); PLATELET COUNT 412 x10^3/uL (140-400); RED BLOOD COUNT 4.31 x10^6/uL (3.50-5.40); WHITE BLOOD COUNT 3.8 x10^3/uL (4.0-11.0)
[2017-04-24] MEDS: SERTRALINE 50 MG TABLET. PO SCH (08:15)
[2017-04-24] MEDS: amLODIPine BESYLATE 10 MG TABLET PO SCH (08:16)
[2017-04-24] MEDS: ZINC OXIDE 20% TOPICAL OINTMENT 28GM TUBE. TP SCH ×2 (08:17→20:07)
[2017-04-24] MEDS: LIDOCAINE 5% TOPICAL OINTMENT 35GM TUBE. TP SCH ×2 (08:17→20:07)
[2017-04-24 08:30] LABS: CALCIUM 8.4 mg/dL (8.5-10.1); CREATININE 0.7 mg/dL (0.6-1.0); GFR 102.6; MAGNESIUM 2.7 mg/dL (1.8-2.4); POTASSIUM 4.2 mmol/L (3.5-5.1)
[2017-04-24 08:35] LABS: PHOSPHORUS 3.2 mg/dL (2.6-4.7)
--- NOTE | 2017-04-24 08:46 | PDOC ---
PROGRESS NOTES Subjective Subjective feels better. dysuria resolved and voiding okay. lab reviewed. blood cultures neg so far. urine culture growing GNR in setting of enterovesical fistula. potassium and magnesium okay. WBC okay. vomited once yesterday. systolic bp elevated but diasatolic bples than 60. will observe bp trend. 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 Fever, although she is afebrile now. 2. Dysuria with urinary tract infection, although it is difficult to interpret that as she has an enterovesical fistula. 3. Abdominal pain. 4. Enterocutaneous fistula. 5. Enterovesical fistula. 6. Hypokalemia.treated 7. Hypomagnesemia. treated 8. Severe protein-calorie malnutrition. 9. Hypertension. GNR uti Medical Problems: (1) Enterocutaneous fistula Status: Acute (2) Hypokalemia Status: Acute (3) Hypomagnesemia Status: Acute (4) Severe protein-calorie malnutrition Status: Acute (5) UTI (urinary tract infection) Status: Acute Plan Plan of Care await urine culture results continue iv antibiotic continue TPN monitor bp Comment Review of Relevant I have reviewed the following items lucila (where applicable) has been applied. Labs Laboratory Tests Test 04/22/17 16:40 04/22/17 17:38 04/23/17 06:15 04/24/17 08:00 White Blood Count 6.2 x10^3/uL (4.0-11.0) 4.4 x10^3/uL (4.0-11.0) 3.8 x10^3/uL (4.0-11.0) Red Blood Count 4.31 x10^6/uL (3.50-5.40) 3.69 x10^6/uL (3.50-5.40) 4.31 x10^6/uL (3.50-5.40) Hemoglobin 10.2 g/dL (12.0-15.5) 8.7 g/dL (12.0-15.5) 10.3 g/dL (12.0-15.5) Hematocrit 32.8 % (36.0-47.0) 27.8 % (36.0-47.0) 33.1 % (36.0-47.0) Mean Corpuscular Volume 76 fL (79-100) 76 fL (79-100) 77 fL (79-100) Mean Corpuscular Hemoglobin 24 pg (25-35) 24 pg (25-35) 24 pg (25-35) Mean Corpuscular Hemoglobin Concent 31 g/dL (31-37) 31 g/dL (31-37) 31 g/dL (31-37) Red Cell Distribution Width 21.5 % (11.5-14.5) 21.1 % (11.5-14.5) 22.0 % (11.5-14.5) Platelet Count 369 x10^3/uL (140-400) 320 x10^3/uL (140-400) 412 x10^3/uL (140-400) Neutrophils (%) (Auto) 50 % (31-73) 43 % (31-73) 45 % (31-73) Lymphocytes (%) (Auto) 24 % (24-48) 27 % (24-48) 27 % (24-48) Monocytes (%) (Auto) 10 % (0-9) 12 % (0-9) 10 % (0-9) Eosinophils (%) (Auto) 14 % (0-3) 17 % (0-3) 14 % (0-3) Basophils (%) (Auto) 3 % (0-3) 1 % (0-3) 3 % (0-3) Neutrophils # (Auto) 3.1 x10^3uL (1.8-7.7) 1.9 x10^3uL (1.8-7.7) 1.7 x10^3uL (1.8-7.7) Lymphocytes # (Auto) 1.5 x10^3/uL (1.0-4.8) 1.2 x10^3/uL (1.0-4.8) 1.0 x10^3/uL (1.0-4.8) Monocytes # (Auto) 0.6 x10^3/uL (0.0-1.1) 0.5 x10^3/uL (0.0-1.1) 0.4 x10^3/uL (0.0-1.1) Eosinophils # (Auto) 0.8 x10^3/uL (0.0-0.7) 0.7 x10^3/uL (0.0-0.7) 0.5 x10^3/uL (0.0-0.7) Basophils # (Auto) 0.2 x10^3/uL (0.0-0.2) 0.0 x10^3/uL (0.0-0.2) 0.1 x10^3/uL (0.0-0.2) Platelet Estimate Adequate (ADEQUATE) Hypochromasia Slight Anisocytosis Mod Sodium Level 141 mmol/L (136-145) 141 mmol/L (136-145) 144 mmol/L (136-145) Potassium Level 2.8 mmol/L (3.5-5.1) 3.6 mmol/L (3.5-5.1) 4.2 mmol/L (3.5-5.1) Chloride Level 103 mmol/L (98-107) 108 mmol/L (98-107) 107 mmol/L (98-107) Carbon Dioxide Level 30 mmol/L (21-32) 28 mmol/L (21-32) 32 mmol/L (21-32) Anion Gap 8 (6-14) 5 (6-14) 5 (6-14) Blood Urea Nitrogen 8 mg/dL (7-20) 5 mg/dL (7-20) 6 mg/dL (7-20) Creatinine 0.7 mg/dL (0.6-1.0) 0.6 mg/dL (0.6-1.0) 0.7 mg/dL (0.6-1.0) Estimated GFR (Cockcroft-Gault) 102.6 122.6 102.6 BUN/Creatinine Ratio 11 (6-20) Glucose Level 87 mg/dL (70-99) 82 mg/dL (70-99) 111 mg/dL (70-99) Calcium Level 7.9 mg/dL (8.5-10.1) 7.6 mg/dL (8.5-10.1) 8.4 mg/dL (8.5-10.1) Magnesium Level 1.1 mg/dL (1.8-2.4) 2.7 mg/dL (1.8-2.4) Total Bilirubin 0.4 mg/dL (0.2-1.0) Aspartate Amino Transf (AST/SGOT) 38 U/L (15-37) Alanine Aminotransferase (ALT/SGPT) 24 U/L (14-59) Alkaline Phosphatase 201 U/L (46-116) Creatine Kinase 57 U/L (26-192) Creatine Kinase MB (Mass) < 0.5 ng/mL (0.0-3.6) Creatine Kinase MB Relative Index 0.9 % (0-4) Troponin I Quantitative < 0.017 ng/mL (0.000-0.055) Total Protein 8.2 g/dL (6.4-8.2) Albumin 2.1 g/dL (3.4-5.0) Albumin/Globulin Ratio 0.3 (1.0-1.7) Lipase 54 U/L (73-393) Urine Collection Type U cath Urine Color Dk yellow Urine Clarity Turbid Urine pH 6.[address] [place] 1.010 Urine Protein 30 mg/dL (NEG-TRACE) Urine Glucose (UA) Negative mg/dL (NEG) Urine Ketones (Stick) Negative mg/dL (NEG) Urine Blood Large (NEG) Urine Nitrite Negative (NEG) Urine Bilirubin Large (NEG) Urine Urobilinogen Dipstick 0.2 mg/dL (0.2 mg/dL) Urine Leukocyte Esterase Moderate (NEG) Urine RBC 1-2 /HPF (0-2) Urine WBC 20-40 /HPF (0-4) Urine Squamous Epithelial Cells Occ /LPF Urine Transitional Epithelial Cells Occ /LPF Urine Bacteria Many /HPF (0-FEW) Urine Mucus Mod /LPF Phosphorus Level 3.2 mg/dL (2.6-4.7) Triglycerides Level 31 mg/dL (0-150) Laboratory Tests Test 04/24/17 08:00 White Blood Count 3.8 x10^3/uL (4.0-11.0) Red Blood Count 4.31 x10^6/uL (3.50-5.40) Hemoglobin 10.3 g/dL (12.0-15.5) Hematocrit 33.1 % (36.0-47.0) Mean Corpuscular Volume 77 fL (79-100) Mean Corpuscular Hemoglobin 24 pg (25-35) Mean Corpuscular Hemoglobin Concent 31 g/dL (31-37) Red Cell Distribution Width 22.0 % (11.5-14.5) Platelet Count 412 x10^3/uL (140-400) Neutrophils (%) (Auto) 45 % (31-73) Lymphocytes (%) (Auto) 27 % (24-48) Monocytes (%) (Auto) 10 % (0-9) Eosinophils (%) (Auto) 14 % (0-3) Basophils (%) (Auto) 3 % (0-3) Neutrophils # (Auto) 1.7 x10^3uL (1.8-7.7) Lymphocytes # (Auto) 1.0 x10^3/uL (1.0-4.8) Monocytes # (Auto) 0.4 x10^3/uL (0.0-1.1) Eosinophils # (Auto) 0.5 x10^3/uL (0.0-0.7) Basophils # (Auto) 0.1 x10^3/uL (0.0-0.2) Sodium Level 144 mmol/L (136-145) Potassium Level 4.2 mmol/L (3.5-5.1) Chloride Level 107 mmol/L (98-107) Carbon Dioxide Level 32 mmol/L (21-32) Anion Gap 5 (6-14) Blood Urea Nitrogen 6 mg/dL (7-20) Creatinine 0.7 mg/dL (0.6-1.0) Estimated GFR (Cockcroft-Gault) 102.6 Glucose Level 111 mg/dL (70-99) Calcium Level 8.4 mg/dL (8.5-10.1) Phosphorus Level 3.2 mg/dL (2.6-4.7) Magnesium Level 2.7 mg/dL (1.8-2.4) Triglycerides Level 31 mg/dL (0-150) Microbiology 04/23/17 Blood Culture - Preliminary, Resulted NO GROWTH AFTER 1 DAY 04/22/17 Urine Culture - Preliminary, Resulted 04/22/17 Urine Culture Result 1 (ROYA) - Preliminary, Resulted Medications Current Medications Fentanyl Citrate (Fentanyl 2ml Vial) 50 mcg PRN Q15MIN PRN IV PAIN GREATER THAN 3/10 Last administered on 04/22/17 20:37; Start 04/22/17 at 17:15; Stop 04/23/17 at 17:14; Status DC Sodium Chloride 1,000 ml @ 1,000 mls/hr Q1H IV Last administered on 04/22/17 17:29; Start 04/22/17 at 17:06; Stop 04/22/17 at 18:05; Status DC Ondansetron HCl (Zofran) 4 mg 1X ONCE IV Last administered on 04/22/17 17:28 ; Start 04/22/17 at 17:15; Stop 04/22/17 at 17:16; Status DC Potassium Chloride 50 ml @ 50 mls/hr 1X ONCE IV Last administered on 19:17; Start 04/22/17 at 18:00; Stop 04/22/17 at 18:59; Status DC Lidocaine (Xylocaine) 1 sang BID TP Last administered on 04/24/17 08:17; Start 04/22/17 at 21:00 Zinc Oxide 1 sang BID TP Last administered on 04/24/17 08:17; Start 04/22/17 at 21:00 Linezolid 300 ml @ 300 mls/hr Q12HR IV Last administered on 04/24/17 08:14; Start 04/22/17 at 21:00 Piperacillin Sod/ Tazobactam Sod 3.375 gm/Dextrose 50 ml @ 100 mls/hr Q6HRS IV ; Start 04/23/17 at 00:00; Status UNV Zolpidem Tartrate (Ambien) 5 mg PRN QHS PRN PO INSOMNIA, MAY REPEAT IN 1HR; Start 04/22/17 at 18:15 Potassium Chloride/Dextrose/ Sod Cl 1,000 ml @ 80 mls/hr 1X ONCE IV Last administered on 04/22/17 23:55; Start 04/22/17 at 18:15; Stop 04/23/17 at 06: 44; Status DC Hydromorphone HCl (Dilaudid) 2 mg PRN Q6HRS PRN PO PAIN; Start 04/22/17 at 18: 15 Ondansetron HCl (Zofran) 4 mg PRN Q8HRS PRN IV NAUSEA/VOMITING Last administered on 04/23/17 15:49; Start 04/22/17 at 18:15; Stop 04/23/17 at 18: 14; Status DC Info 1 each PRN DAILY PRN MC SEE COMMENTS Last administered on 04/23/17 13:50 ; Start 04/22/17 at 18:30 Magnesium Sulfate/ Dextrose 50 ml @ 25 mls/hr 1X ONCE IV Last administered on 04/22/17 19:17; Start 04/22/17 at 18:30; Stop 04/22/17 at 20:29; Status DC Potassium Chloride 50 ml @ 50 mls/hr Q1H IV Last administered on 04/22/17 23: 05; Start 04/22/17 at 18:30; Stop 04/22/17 at 21:29; Status DC Magnesium Sulfate/ Dextrose 50 ml @ 25 mls/hr 1X ONCE IV Last administered on 04/22/17 21:57; Start 04/22/17 at 20:30; Stop 04/22/17 at 22:29; Status DC Piperacillin Sod/ Tazobactam Sod (Zosyn) 3.375 gm Q6HRS IVP Last administered on 04/24/17 06:00; Start 04/22/17 at 18:30 Lorazepam (Ativan) 0.5 mg PRN Q6HRS PRN PO ANXIETY Last administered on 22:13; Start 04/22/17 at 22:15 Hydromorphone HCl (Dilaudid) 2 mg PRN Q4HRS PRN IV SEVERE PAIN Last administered on 04/23/17 06:18; Start 04/22/17 at 22:15; Stop 04/23/17 at 10: 15; Status DC Hydromorphone HCl (Dilaudid) 4 mg PRN Q6HRS PRN IV SEVERE PAIN Last administered on 04/24/17 08:25; Start 04/23/17 at 10:15 Acetaminophen (Tylenol) 650 mg PRN Q6HRS PRN PO MILD PAIN / TEMP; Start at 10:15 Fentanyl (Duragesic 25mcg/ Hr Patch) 1 patch Q3DAYS TD Last administered on 12:29; Start 04/23/17 at 10:30 Famotidine (Pepcid) 20 mg BID PO Last administered on 04/24/17 08:14; Start 04/23/17 at 11:00 Lorazepam (Ativan) 0.5 mg PRN Q6HRS PRN PO ANXIETY / AGITATION; Start at 10:15 Sertraline HCl (Zoloft) 50 mg DAILY PO Last administered on 04/24/17 08:15; Start 04/23/17 at 11:00 Ondansetron HCl (Zofran) 4 mg PRN Q6HRS PRN IV NAUSEA/VOMITING; Start at 10:15 Amlodipine Besylate (Norvasc) 10 mg DAILY PO Last administered on 04/24/17 08 :16; Start 04/23/17 at 11:00 Sodium Chloride 210 meq/Potassium Chloride 120 meq/ Magnesium Sulfate 32 meq/ Multivitamins 10 ml/Chromium/ Copper/Manganese/ Seleni/Zn 1 ml/ Total Parenteral Nutrition/Amino Acids/Dextrose/ Fat Emulsion Intravenous 1,920 ml @ 80 mls/hr TPN CONT IV ; Start 04/23/17 at 22:00; Stop 04/24/17 at 21:59; Status Cancel Magnesium Sulfate/ Dextrose 50 ml @ 25 mls/hr 1X ONCE IV Last administered on 04/23/17 15:49; Start 04/23/17 at 13:00; Stop 04/23/17 at 14:59; Status DC Sodium Chloride 210 meq/Potassium Chloride 120 meq/ Potassium Acetate 20 meq/ Magnesium Sulfate 32 meq/ Multivitamins 10 ml/Chromium/ Copper/Manganese/ Seleni /Zn 1 ml/ Total Parenteral Nutrition/Amino Acids/Dextrose/ Fat Emulsion Intravenous 1,920 ml @ 80 mls/hr TPN CONT IV Last administered on 04/23/17 20:27; Start 04/23/17 at 22:00; Stop 04/24/17 at 21:59 Active Scripts Active FENTANYL 25mcg/hr (Fentanyl) 1 Each Patch.td72 1 Patch TD Q72H 30 Days Amlodipine Besylate 5 Mg Tablet 10 Mg PO DAILY 30 Days Sertraline Hcl 50 Mg Tablet 50 Mg PO DAILY 30 Days Famotidine 20 Mg Tablet 20 Mg PO BID 60 Days Lidocaine 35.44 Gm Oint...g. 1 Sang TP BID Reported Zofran Odt (Ondansetron) 4 Mg Tab.rapdis 1 Tab SL PRN Q8HRS PRN Zinc Oxide 56.7 Gm Oint...g. 56.7 Gm TP PRN BID Dilaudid (Hydromorphone Hcl) 2 Mg Tablet 1 Tab PO PRN QID PRN Lorazepam 0.5 Mg Tablet 0.5 Mg PO Q6HRS PRN Vitals/I & O Vital Sign - Last 24 Hours 04/23/17 04/23/17 04/23/17 04/23/17 11:34 12:29 12:29 15:39 Temp 97.3 97.6 97.3 97.6 Pulse 67 73 68 Resp 18 18 B/P (MAP) 138/72 (94) 149/54 127/73 (91) Pulse Ox 100 100 O2 Delivery Room Air Room Air Room Air 04/23/17 04/23/17 04/23/17 04/23/17 16:44 18:00 18:30 19:20 Pulse 73 Resp 18 B/P (MAP) 93/56 (68) Pulse Ox 100 95 O2 Delivery Room Air Room Air Room Air Room Air 04/23/17 04/23/17 04/24/17 04/24/17 20:00 23:25 01:57 02:27 Pulse 56 Resp 18 20 18 B/P (MAP) 160/86 (110) Pulse Ox 100 96 96 O2 Delivery Room Air Room Air Room Air 04/24/17 04/24/17 04/24/17 04/24/17 07:00 08:00 08:16 08:25 Temp 97.4 97.4 Pulse 68 68 Resp 16 B/P (MAP) 158/53 (88) 158/53 Pulse Ox 100 100 O2 Delivery Room Air Room Air Room Air Nutrition Consultation Dietary Evaluation: Recommendations by RD: PPN/TPN Comments: continue home TPN regimen diet as tolerated Expected Outcomes/Goals: to meet > 75% est nutrition needs via TPN Malnutrition Findings: Weight Status: Appropriate BENITA LUTZ MD Apr 24, 2017 08:46
[2017-04-24] MEDS ORDERED: ALTEPLASE 2 MG VIAL INT CAT ONE (10:00)
[2017-04-24] MEDS: TPN PER PHARMACY MC PRN (13:16)
[2017-04-24 13:29] LABS: % EOS 20 % (0-5); PLT ESTIMATE ADEQUATE (ADEQUATE)
[2017-04-24] MEDS: diphenhydrAMINE HCL 25 MG CAPSULE PO PRN ×2 (13:57→20:16)
[2017-04-24 15:00] VITALS: BP 128/77
--- NOTE | 2017-04-24 15:32 | PDOC ---
Infectious Disease Note Subjective Subjective feeling much better, no complaints ROS ROS GEN: Denies fevers, chills, sweats HEENT: Denies blurred vision, sore throat CV: Denies chest pain RESP: Denies shortness of air, cough GI: Denies n/v/d NEURO: Denies confusion, dizziness MSK: Denies weakness, joint pain/swelling Vital Sign Vital Signs Vital Signs Date Time Temp Pulse Resp B/P (MAP) Pulse Ox O2 Delivery O2 Flow Rate FiO2 04/24/17 09:49 100 Room Air 04/24/17 08:16 68 158/53 04/24/17 07:00 97.4 16 97.4 Physical Exam PHYSICAL EXAM GENERAL: NAD, Alert HEENT: PERRL, OC/OP NECK: Supple, no JVD, no LN LUNGS: Clear HEART: S1S2, no gallop, no murmur ABD: Soft, NT, no organomegaly, no rebound,, abd wound with fistula EXT: No edema, no cyanosis [employer]: Alert, oriented x 3, no focal neurologic deficit SKIN: No rash IV: ok Labs Lab Laboratory Tests Test 04/24/17 08:00 White Blood Count 3.8 x10^3/uL (4.0-11.0) Red Blood Count 4.31 x10^6/uL (3.50-5.40) Hemoglobin 10.3 g/dL (12.0-15.5) Hematocrit 33.1 % (36.0-47.0) Mean Corpuscular Volume 77 fL (79-100) Mean Corpuscular Hemoglobin 24 pg (25-35) Mean Corpuscular Hemoglobin Concent 31 g/dL (31-37) Red Cell Distribution Width 22.0 % (11.5-14.5) Platelet Count 412 x10^3/uL (140-400) Neutrophils (%) (Auto) 45 % (31-73) Lymphocytes (%) (Auto) 27 % (24-48) Monocytes (%) (Auto) 10 % (0-9) Eosinophils (%) (Auto) 14 % (0-3) Basophils (%) (Auto) 3 % (0-3) Neutrophils # (Auto) 1.7 x10^3uL (1.8-7.7) Lymphocytes # (Auto) 1.0 x10^3/uL (1.0-4.8) Monocytes # (Auto) 0.4 x10^3/uL (0.0-1.1) Eosinophils # (Auto) 0.5 x10^3/uL (0.0-0.7) Basophils # (Auto) 0.1 x10^3/uL (0.0-0.2) Segmented Neutrophils % 25 % (35-66) Band Neutrophils % 3 % (0-9) Lymphocytes % 38 % (24-48) Atypical Lymphocytes % (Manual) 3 % (0-0) Monocytes % 11 % (0-10) Eosinophils % 20 % (0-5) Platelet Estimate Adequate (ADEQUATE) Sodium Level 144 mmol/L (136-145) Potassium Level 4.2 mmol/L (3.5-5.1) Chloride Level 107 mmol/L (98-107) Carbon Dioxide Level 32 mmol/L (21-32) Anion Gap 5 (6-14) Blood Urea Nitrogen 6 mg/dL (7-20) Creatinine 0.7 mg/dL (0.6-1.0) Estimated GFR (Cockcroft-Gault) 102.6 Glucose Level 111 mg/dL (70-99) Calcium Level 8.4 mg/dL (8.5-10.1) Phosphorus Level 3.2 mg/dL (2.6-4.7) Magnesium Level 2.7 mg/dL (1.8-2.4) Triglycerides Level 31 mg/dL (0-150) Objective Assessment 1. Fevers and chills prior to admit, now resolved. 2. Pyuria. 3. Irritant contact dermatitis of abdomen for an enterocutaneous fistula drainage. 4. History of intravenous vancomycin allergy. 5. Chronic total parenteral nutrition therapy. 6. Enterocutaneous and enterovesical fistula. 7. History of methicillin-resistant Staphylococcus aureus, Enterobacter klebsiella line infections. 8. History of E. coli and Enterobacter aerogenes, Enterococcus faecium ampicillin resistant and Enterococcus faecalis in the urine. 9. Anemia of chronic disease. 10. Hypertension. 11. Depression. 12. Esophagitis. 13. History of deep venous thrombosis in 2010. 14. History of diverticulosis and peptic ulcer disease. Plan Plan of Care cont antibiotics, check culture and adjust JOSSY TATUM MD Apr 24, 2017 15:32
[2017-04-24] MEDS: LORazepam 0.5 MG TABLET PO PRN (20:16)
[2017-04-24 21:23] VITALS: BP 161/82
[2017-04-24] MEDS ORDERED: [UNRECOGNIZED DRUG - OTHER] IV SCH ×9 (22:00)
[2017-04-24] MEDS ORDERED: AMINO ACIDS IV SCH ×9 (22:00)
[2017-04-24] MEDS ORDERED: TOTAL PARENTERAL NUTRITION IV SCH ×9 (22:00)
[2017-04-24] MEDS ORDERED: DEXTROSE 70% IV SCH ×9 (22:00)
[2017-04-24 23:41] VITALS: BP 170/94
[2017-04-25] MEDS: PIPERACILLIN/TAZO IV Push 3.375 GM VIAL. IVP SCH ×5 (00:33→23:33)
[2017-04-25] MEDS: HYDROmorphone 2 MG/ML VIAL IV PRN ×4 (03:34→23:33)
[2017-04-25 03:59] VITALS: BP 155/80
[2017-04-25 06:33] LABS: CALCIUM 8.4 mg/dL (8.5-10.1); CREATININE 0.7 mg/dL (0.6-1.0); GFR 102.6; MAGNESIUM 2.5 mg/dL (1.8-2.4); PHOSPHORUS 2.7 mg/dL (2.6-4.7); POTASSIUM 5.1 mmol/L (3.5-5.1)
[2017-04-25 07:59] VITALS: BP 152/75
[2017-04-25] MEDS: FAMOTIDINE 20 MG TABLET. PO SCH (08:01)
[2017-04-25] MEDS: SERTRALINE 50 MG TABLET. PO SCH (08:01)
[2017-04-25] MEDS: amLODIPine BESYLATE 10 MG TABLET PO SCH (08:01)
[2017-04-25] MEDS: LIDOCAINE 5% TOPICAL OINTMENT 35GM TUBE. TP SCH ×2 (08:02→20:54)
[2017-04-25] MEDS: ZINC OXIDE 20% TOPICAL OINTMENT 28GM TUBE. TP SCH ×2 (08:02→20:54)
--- NOTE | 2017-04-25 08:43 | PDOC ---
PROGRESS NOTES Subjective Subjective says she had chest pain for 2 days prior to admission with swallowing or belching or breathing which has resolved. has thickening of wall of distal esophagus consistent with reflux esophagitis. will d/c pepcid and switch to protonix, blood cultures neg. urine culture grew e. coli sensitive to rocephin, . lab reviewed. potassium 5.1 and magnesium okay. blood pressure high and will start hctz and continue amlodipine. feels better. Objective Objective Vital Signs Date Time Temp Pulse Resp B/P (MAP) Pulse Ox O2 Delivery O2 Flow Rate FiO2 04/25/17 08:01 77 152/75 04/25/17 07:59 98.2 18 98 Room Air 98.2 Physical Exam Abdomen: Soft, Other (enterocutaneous fistula) Heart: Regular rate, Normal S1, Normal S2 Extremities: No edema General: Alert, Cooperative HEENT: Atraumatic Lungs: Clear to auscultation Psych/Mental Status: Mental status NL Skin: No rashes Assessment Assessment Problems1. Fever, although she is afebrile now. 2. e. coli uti in setting of enterovesical fistula. 3. Abdominal pain.due to adhesions 4. Enterocutaneous fistula. 5. Enterovesical fistula. 6. Hypokalemia.treated 7. Hypomagnesemia. treated 8. Severe protein-calorie malnutrition. 9. Hypertension.bp high reflux esophagitis Medical Problems: (1) Enterocutaneous fistula Status: Acute (2) Hypokalemia Status: Acute (3) Hypomagnesemia Status: Acute (4) Severe protein-calorie malnutrition Status: Acute (5) UTI (urinary tract infection) Status: Acute Plan Plan of Care iv antibiotics per ID start hctz and continue amlodipine start protonix and d/c pepcid continue TPN lab tomorrow Comment Review of Relevant I have reviewed the following items lucila (where applicable) has been applied. Labs Laboratory Tests Test 04/24/17 08:00 04/25/17 05:30 White Blood Count 3.8 x10^3/uL (4.0-11.0) Red Blood Count 4.31 x10^6/uL (3.50-5.40) Hemoglobin 10.3 g/dL (12.0-15.5) Hematocrit 33.1 % (36.0-47.0) Mean Corpuscular Volume 77 fL (79-100) Mean Corpuscular Hemoglobin 24 pg (25-35) Mean Corpuscular Hemoglobin Concent 31 g/dL (31-37) Red Cell Distribution Width 22.0 % (11.5-14.5) Platelet Count 412 x10^3/uL (140-400) Neutrophils (%) (Auto) 45 % (31-73) Lymphocytes (%) (Auto) 27 % (24-48) Monocytes (%) (Auto) 10 % (0-9) Eosinophils (%) (Auto) 14 % (0-3) Basophils (%) (Auto) 3 % (0-3) Neutrophils # (Auto) 1.7 x10^3uL (1.8-7.7) Lymphocytes # (Auto) 1.0 x10^3/uL (1.0-4.8) Monocytes # (Auto) 0.4 x10^3/uL (0.0-1.1) Eosinophils # (Auto) 0.5 x10^3/uL (0.0-0.7) Basophils # (Auto) 0.1 x10^3/uL (0.0-0.2) Segmented Neutrophils % 25 % (35-66) Band Neutrophils % 3 % (0-9) Lymphocytes % 38 % (24-48) Atypical Lymphocytes % (Manual) 3 % (0-0) Monocytes % 11 % (0-10) Eosinophils % 20 % (0-5) Platelet Estimate Adequate (ADEQUATE) Sodium Level 144 mmol/L (136-145) 139 mmol/L (136-145) Potassium Level 4.2 mmol/L (3.5-5.1) 5.1 mmol/L (3.5-5.1) Chloride Level 107 mmol/L (98-107) 106 mmol/L (98-107) Carbon Dioxide Level 32 mmol/L (21-32) 32 mmol/L (21-32) Anion Gap 5 (6-14) 1 (6-14) Blood Urea Nitrogen 6 mg/dL (7-20) 10 mg/dL (7-20) Creatinine 0.7 mg/dL (0.6-1.0) 0.7 mg/dL (0.6-1.0) Estimated GFR (Cockcroft-Gault) 102.6 102.6 Glucose Level 111 mg/dL (70-99) 101 mg/dL (70-99) Calcium Level 8.4 mg/dL (8.5-10.1) 8.4 mg/dL (8.5-10.1) Phosphorus Level 3.2 mg/dL (2.6-4.7) 2.7 mg/dL (2.6-4.7) Magnesium Level 2.7 mg/dL (1.8-2.4) 2.5 mg/dL (1.8-2.4) Triglycerides Level 31 mg/dL (0-150) Laboratory Tests Test 04/25/17 05:30 Sodium Level 139 mmol/L (136-145) Potassium Level 5.1 mmol/L (3.5-5.1) Chloride Level 106 mmol/L (98-107) Carbon Dioxide Level 32 mmol/L (21-32) Anion Gap 1 (6-14) Blood Urea Nitrogen 10 mg/dL (7-20) Creatinine 0.7 mg/dL (0.6-1.0) Estimated GFR (Cockcroft-Gault) 102.6 Glucose Level 101 mg/dL (70-99) Calcium Level 8.4 mg/dL (8.5-10.1) Phosphorus Level 2.7 mg/dL (2.6-4.7) Magnesium Level 2.5 mg/dL (1.8-2.4) Microbiology 04/23/17 Blood Culture - Preliminary, Resulted NO GROWTH AFTER 2 DAYS 04/22/17 Urine Culture - Final, Complete 04/22/17 Urine Culture Result 1 (ROYA) - Final, Complete 04/22/17 Antimicrobic Susceptibility - Final, Complete Medications Current Medications Fentanyl Citrate (Fentanyl 2ml Vial) 50 mcg PRN Q15MIN PRN IV PAIN GREATER THAN 3/10 Last administered on 04/22/17 20:37; Start 04/22/17 at 17:15; Stop 04/23/17 at 17:14; Status DC Sodium Chloride 1,000 ml @ 1,000 mls/hr Q1H IV Last administered on 04/22/17 17:29; Start 04/22/17 at 17:06; Stop 04/22/17 at 18:05; Status DC Ondansetron HCl (Zofran) 4 mg 1X ONCE IV Last administered on 04/22/17 17:28 ; Start 04/22/17 at 17:15; Stop 04/22/17 at 17:16; Status DC Potassium Chloride 50 ml @ 50 mls/hr 1X ONCE IV Last administered on 19:17; Start 04/22/17 at 18:00; Stop 04/22/17 at 18:59; Status DC Lidocaine (Xylocaine) 1 sang BID TP Last administered on 04/25/17 08:02; Start 04/22/17 at 21:00 Zinc Oxide 1 sang BID TP Last administered on 04/25/17 08:02; Start 04/22/17 at 21:00 Linezolid 300 ml @ 300 mls/hr Q12HR IV Last administered on 04/25/17 08:00; Start 04/22/17 at 21:00 Piperacillin Sod/ Tazobactam Sod 3.375 gm/Dextrose 50 ml @ 100 mls/hr Q6HRS IV ; Start 04/23/17 at 00:00; Status UNV Zolpidem Tartrate (Ambien) 5 mg PRN QHS PRN PO INSOMNIA, MAY REPEAT IN 1HR; Start 04/22/17 at 18:15 Potassium Chloride/Dextrose/ Sod Cl 1,000 ml @ 80 mls/hr 1X ONCE IV Last administered on 04/22/17 23:55; Start 04/22/17 at 18:15; Stop 04/23/17 at 06: 44; Status DC Hydromorphone HCl (Dilaudid) 2 mg PRN Q6HRS PRN PO PAIN; Start 04/22/17 at 18: 15 Ondansetron HCl (Zofran) 4 mg PRN Q8HRS PRN IV NAUSEA/VOMITING Last administered on 04/23/17 15:49; Start 04/22/17 at 18:15; Stop 04/23/17 at 18: 14; Status DC Info 1 each PRN DAILY PRN MC SEE COMMENTS Last administered on 04/24/17 13:16 ; Start 04/22/17 at 18:30 Magnesium Sulfate/ Dextrose 50 ml @ 25 mls/hr 1X ONCE IV Last administered on 04/22/17 19:17; Start 04/22/17 at 18:30; Stop 04/22/17 at 20:29; Status DC Potassium Chloride 50 ml @ 50 mls/hr Q1H IV Last administered on 04/22/17 23: 05; Start 04/22/17 at 18:30; Stop 04/22/17 at 21:29; Status DC Magnesium Sulfate/ Dextrose 50 ml @ 25 mls/hr 1X ONCE IV Last administered on 04/22/17 21:57; Start 04/22/17 at 20:30; Stop 04/22/17 at 22:29; Status DC Piperacillin Sod/ Tazobactam Sod (Zosyn) 3.375 gm Q6HRS IVP Last administered on 04/25/17 05:41; Start 04/22/17 at 18:30 Lorazepam (Ativan) 0.5 mg PRN Q6HRS PRN PO ANXIETY Last administered on 20:16; Start 04/22/17 at 22:15 Hydromorphone HCl (Dilaudid) 2 mg PRN Q4HRS PRN IV SEVERE PAIN Last administered on 04/23/17 06:18; Start 04/22/17 at 22:15; Stop 04/23/17 at 10: 15; Status DC Hydromorphone HCl (Dilaudid) 4 mg PRN Q6HRS PRN IV SEVERE PAIN Last administered on 04/25/17 03:34; Start 04/23/17 at 10:15 Acetaminophen (Tylenol) 650 mg PRN Q6HRS PRN PO MILD PAIN / TEMP; Start at 10:15 Fentanyl (Duragesic 25mcg/ Hr Patch) 1 patch Q3DAYS TD Last administered on 12:29; Start 04/23/17 at 10:30 Famotidine (Pepcid) 20 mg BID PO Last administered on 04/25/17 08:01; Start 04/23/17 at 11:00 Lorazepam (Ativan) 0.5 mg PRN Q6HRS PRN PO ANXIETY / AGITATION; Start at 10:15 Sertraline HCl (Zoloft) 50 mg DAILY PO Last administered on 04/25/17 08:01; Start 04/23/17 at 11:00 Ondansetron HCl (Zofran) 4 mg PRN Q6HRS PRN IV NAUSEA/VOMITING; Start at 10:15 Amlodipine Besylate (Norvasc) 10 mg DAILY PO Last administered on 04/25/17 08 :01; Start 04/23/17 at 11:00 Sodium Chloride 210 meq/Potassium Chloride 120 meq/ Magnesium Sulfate 32 meq/ Multivitamins 10 ml/Chromium/ Copper/Manganese/ Seleni/Zn 1 ml/ Total Parenteral Nutrition/Amino Acids/Dextrose/ Fat Emulsion Intravenous 1,920 ml @ 80 mls/hr TPN CONT IV ; Start 04/23/17 at 22:00; Stop 04/24/17 at 21:59; Status Cancel Magnesium Sulfate/ Dextrose 50 ml @ 25 mls/hr 1X ONCE IV Last administered on 04/23/17 15:49; Start 04/23/17 at 13:00; Stop 04/23/17 at 14:59; Status DC Sodium Chloride 210 meq/Potassium Chloride 120 meq/ Potassium Acetate 20 meq/ Magnesium Sulfate 32 meq/ Multivitamins 10 ml/Chromium/ Copper/Manganese/ Seleni /Zn 1 ml/ Total Parenteral Nutrition/Amino Acids/Dextrose/ Fat Emulsion Intravenous 1,920 ml @ 80 mls/hr TPN CONT IV Last administered on 04/23/17 20:27; Start 04/23/17 at 22:00; Stop 04/24/17 at 21:59; Status DC Alteplase, Recombinant (Cathflo) 2 mg 1X ONCE INT CAT Last administered on 10:00; Start 04/24/17 at 10:00; Stop 04/24/17 at 10:01; Status DC Sodium Chloride 210 meq/Potassium Chloride 120 meq/ Potassium Acetate 20 meq/ Magnesium Sulfate 32 meq/ Multivitamins 10 ml/Chromium/ Copper/Manganese/ Seleni /Zn 1 ml/ Total Parenteral Nutrition/Amino Acids/Dextrose/ Fat Emulsion Intravenous 1,920 ml @ 80 mls/hr TPN CONT IV Last administered on 04/24/17 22:40; Start 04/24/17 at 22:00; Stop 04/25/17 at 21:59 Diphenhydramine HCl (Benadryl) 25 mg PRN Q6HRS PRN PO ITCHING Last administered on 04/24/17 20:16; Start 04/24/17 at 13:45 Active Scripts Active FENTANYL 25mcg/hr (Fentanyl) 1 Each Patch.td72 1 Patch TD Q72H 30 Days Amlodipine Besylate 5 Mg Tablet 10 Mg PO DAILY 30 Days Sertraline Hcl 50 Mg Tablet 50 Mg PO DAILY 30 Days Famotidine 20 Mg Tablet 20 Mg PO BID 60 Days Lidocaine 35.44 Gm Oint...g. 1 Sang TP BID Reported Zofran Odt (Ondansetron) 4 Mg Tab.rapdis 1 Tab SL PRN Q8HRS PRN Zinc Oxide 56.7 Gm Oint...g. 56.7 Gm TP PRN BID Dilaudid (Hydromorphone Hcl) 2 Mg Tablet 1 Tab PO PRN QID PRN Lorazepam 0.5 Mg Tablet 0.5 Mg PO Q6HRS PRN Vitals/I & O Vital Sign - Last 24 Hours 04/24/17 04/24/17 04/24/17 04/24/17 15:00 17:46 18:46 20:00 Temp 97.7 97.7 Pulse 74 Resp 16 B/P (MAP) 128/77 (94) Pulse Ox 98 98 98 O2 Delivery Room Air Room Air Room Air Room Air 04/24/17 04/24/17 04/25/17 04/25/17 21:23 23:41 03:34 03:59 Temp 97.7 97.6 97.7 97.7 97.6 97.7 Pulse 82 78 80 Resp 18 18 18 B/P (MAP) 161/82 (108) 170/94 (119) 155/80 (105) Pulse Ox 98 100 100 94 O2 Delivery Room Air Room Air Room Air Room Air 04/25/17 04/25/17 07:59 08:01 Temp 98.2 98.2 Pulse 77 77 Resp 18 B/P (MAP) 152/75 (100) 152/75 Pulse Ox 98 O2 Delivery Room Air Nutrition Consultation Dietary Evaluation: Recommendations by RD: PPN/TPN Comments: continue home TPN regimen diet as tolerated Expected Outcomes/Goals: to meet > 75% est nutrition needs via TPN Malnutrition Findings: Weight Status: Appropriate BENITA LUTZ MD Apr 25, 2017 08:43
--- NOTE | 2017-04-25 10:42 | PDOC ---
Infectious Disease Note Subjective Subjective Feeling ok Denies swelling, pruritus, rash or wheezing Denies N/V ROS ROS GEN: Denies fevers, chills, sweats CV: Denies chest pain RESP: Denies shortness of air, cough Vital Sign Vital Signs Vital Signs Date Time Temp Pulse Resp B/P (MAP) Pulse Ox O2 Delivery O2 Flow Rate FiO2 04/25/17 08:01 77 152/75 04/25/17 08:00 Room Air 04/25/17 07:59 98.2 18 98 98.2 Physical Exam PHYSICAL EXAM GENERAL: Propped up in bed, tired appearance LUNGS: Clear HEART: S1 and S2 ABD: Soft, NT, EC fistula EXT: No edema, no cyanosis [employer]: Alert, oriented x 3, no focal neurologic deficit SKIN: No rash Tunneled PICC. clean Labs Lab Laboratory Tests Test 04/25/17 05:30 Sodium Level 139 mmol/L (136-145) Potassium Level 5.1 mmol/L (3.5-5.1) Chloride Level 106 mmol/L (98-107) Carbon Dioxide Level 32 mmol/L (21-32) Anion Gap 1 (6-14) Blood Urea Nitrogen 10 mg/dL (7-20) Creatinine 0.7 mg/dL (0.6-1.0) Estimated GFR (Cockcroft-Gault) 102.6 Glucose Level 101 mg/dL (70-99) Calcium Level 8.4 mg/dL (8.5-10.1) Phosphorus Level 2.7 mg/dL (2.6-4.7) Magnesium Level 2.5 mg/dL (1.8-2.4) Micro BLOOD CULTURE Preliminary NO GROWTH AFTER 2 DAYS Objective Assessment Leukopenia and eosinophilia Fevers and chills prior to admit, now resolved. Pyuria. E. coli in urine Irritant contact dermatitis of abdomen for an enterocutaneous fistula drainage. History of intravenous vancomycin allergy. Chronic total parenteral nutrition therapy. Enterocutaneous and enterovesical fistula. History of methicillin-resistant Staphylococcus aureus, Enterobacter and klebsiella line infections. History of E. coli and Enterobacter aerogenes, Enterococcus faecium ampR and Enterococcus faecalis in the urine. Anemia of chronic disease. Hypertension. Depression. Esophagitis. History of deep venous thrombosis in 2010. History of diverticulosis and peptic ulcer disease. Plan Plan of Care Zyvox and Zosyn Monitor counts and temp f/u cultures Attending Co-Sign The patient was seen and interviewed as well as examined at the bedside. The chart was reviewed. The case was discussed. Agree with the plan of care. MAYELIN COLEMAN APRN Apr 25, 2017 10:42 JOSSY TATUM MD Apr 25, 2017 14:30
[2017-04-25] MEDS: PANTOPRAZOLE 40 MG TABLET.DR. PO SCH (10:47)
[2017-04-25] MEDS: hydroCHLOROthiazide 25 MG TABLET PO SCH (10:47)
[2017-04-25] MEDS: ONDANSETRON PF 4 MG/2 ML VIAL. IV PRN ×2 (10:48→17:12)
[2017-04-25 11:05] VITALS: BP 196/109
[2017-04-25] MEDS: TPN PER PHARMACY MC PRN ×2 (12:11→12:14)
[2017-04-25 15:09] VITALS: BP 189/93
[2017-04-25 19:00] VITALS: BP 158/99
[2017-04-25] MEDS: LORazepam 0.5 MG TABLET PO PRN (21:05)
[2017-04-25] MEDS ORDERED: DEXTROSE 70% IV SCH ×9 (22:00)
[2017-04-25] MEDS ORDERED: [UNRECOGNIZED DRUG - OTHER] IV SCH ×9 (22:00)
[2017-04-25] MEDS ORDERED: TOTAL PARENTERAL NUTRITION IV SCH ×9 (22:00)
[2017-04-25] MEDS ORDERED: AMINO ACIDS IV SCH ×9 (22:00)
[2017-04-25 22:59] VITALS: BP 139/77
[2017-04-26] VITALS (7 sets, daily range): BP systolic 137–176; BP diastolic 62–98
[2017-04-26] MEDS: PIPERACILLIN/TAZO IV Push 3.375 GM VIAL. IVP SCH ×3 (06:05→16:53)
[2017-04-26] MEDS: HYDROmorphone 2 MG/ML VIAL IV PRN ×3 (06:08→20:49)
[2017-04-26 06:35] LABS: BASO # 0.1 x10^3/uL (0.0-0.2); BASO % 2 % (0-3); EOS % 12 % (0-3); HEMATOCRIT 29.1 % (36.0-47.0); LYMPH # 1.4 x10^3/uL (1.0-4.8); LYMPH % 27 % (24-48); MEAN CORPUSCULAR HEMOGLOBIN 24 pg (25-35); MEAN CORPUSCULAR HGB CONC 31 g/dL (31-37); MEAN CORPUSCULAR VOLUME 78 fL (79-100); MONO % 8 % (0-9); NEUT % 51 % (31-73); PLATELET COUNT 355 x10^3/uL (140-400); RED BLOOD COUNT 3.75 x10^6/uL (3.50-5.40); RED CELL DISTRIBUTION WIDTH 21.5 % (11.5-14.5); WHITE BLOOD COUNT 5.1 x10^3/uL (4.0-11.0)
[2017-04-26 06:44] LABS: CALCIUM 8.7 mg/dL (8.5-10.1); CREATININE 0.7 mg/dL (0.6-1.0); GFR 102.6; MAGNESIUM 2.4 mg/dL (1.8-2.4); POTASSIUM 5.7 mmol/L (3.5-5.1)
--- NOTE | 2017-04-26 08:38 | PDOC ---
PROGRESS NOTES Subjective Subjective feels better. blood pressure is okay. lab reviewed. potassium high 5.7. will d/ c TPN and start iv Normal saline until new TPN available with less potassium . spoke with pharmacist and nurse,. Objective Objective Vital Signs Date Time Temp Pulse Resp B/P (MAP) Pulse Ox O2 Delivery O2 Flow Rate FiO2 04/26/17 07:41 Room Air 04/26/17 07:00 98.4 69 18 137/62 (87) 96 98.4 Physical Exam Abdomen: Soft, Other (enterocutaneous fistula) Heart: Regular rate, Normal S1, Normal S2 Extremities: No edema General: Alert HEENT: Atraumatic Lungs: Clear to auscultation Neuro: Normal speech Psych/Mental Status: Mental status NL Skin: No rashes Assessment Assessment Problems1. Fever, although she is afebrile now. 2. e. coli uti in setting of enterovesical fistula. 3. Abdominal pain.due to adhesions 4. Enterocutaneous fistula. 5. Enterovesical fistula. 6. Hypokalemia.treated 7. Hypomagnesemia. treated 8. Severe protein-calorie malnutrition. 9. Hypertension. reflux esophagitis hyperkalemia (1) Enterocutaneous fistula Status: Acute (2) Hypokalemia Status: Acute (3) Hypomagnesemia Status: Acute (4) Severe protein-calorie malnutrition Status: Acute (5) UTI (urinary tract infection) Status: Acute Plan Plan of Care d/c TPN start normal saline resume new TPN when available with lower potassium kayexelate times 1. antibiotics per ID continue amlodipine and hctz lab tomorrow Comment Review of Relevant I have reviewed the following items lucila (where applicable) has been applied. Labs Laboratory Tests Test 04/25/17 05:30 04/26/17 06:10 Sodium Level 139 mmol/L (136-145) 136 mmol/L (136-145) Potassium Level 5.1 mmol/L (3.5-5.1) 5.7 mmol/L (3.5-5.1) Chloride Level 106 mmol/L (98-107) 106 mmol/L (98-107) Carbon Dioxide Level 32 mmol/L (21-32) 28 mmol/L (21-32) Anion Gap 1 (6-14) 2 (6-14) Blood Urea Nitrogen 10 mg/dL (7-20) 14 mg/dL (7-20) Creatinine 0.7 mg/dL (0.6-1.0) 0.7 mg/dL (0.6-1.0) Estimated GFR (Cockcroft-Gault) 102.6 102.6 Glucose Level 101 mg/dL (70-99) 80 mg/dL (70-99) Calcium Level 8.4 mg/dL (8.5-10.1) 8.7 mg/dL (8.5-10.1) Phosphorus Level 2.7 mg/dL (2.6-4.7) 2.5 mg/dL (2.6-4.7) Magnesium Level 2.5 mg/dL (1.8-2.4) 2.4 mg/dL (1.8-2.4) White Blood Count 5.1 x10^3/uL (4.0-11.0) Red Blood Count 3.75 x10^6/uL (3.50-5.40) Hemoglobin 9.0 g/dL (12.0-15.5) Hematocrit 29.1 % (36.0-47.0) Mean Corpuscular Volume 78 fL (79-100) Mean Corpuscular Hemoglobin 24 pg (25-35) Mean Corpuscular Hemoglobin Concent 31 g/dL (31-37) Red Cell Distribution Width 21.5 % (11.5-14.5) Platelet Count 355 x10^3/uL (140-400) Neutrophils (%) (Auto) 51 % (31-73) Lymphocytes (%) (Auto) 27 % (24-48) Monocytes (%) (Auto) 8 % (0-9) Eosinophils (%) (Auto) 12 % (0-3) Basophils (%) (Auto) 2 % (0-3) Neutrophils # (Auto) 2.6 x10^3uL (1.8-7.7) Lymphocytes # (Auto) 1.4 x10^3/uL (1.0-4.8) Monocytes # (Auto) 0.4 x10^3/uL (0.0-1.1) Eosinophils # (Auto) 0.6 x10^3/uL (0.0-0.7) Basophils # (Auto) 0.1 x10^3/uL (0.0-0.2) Laboratory Tests Test 04/26/17 06:10 White Blood Count 5.1 x10^3/uL (4.0-11.0) Red Blood Count 3.75 x10^6/uL (3.50-5.40) Hemoglobin 9.0 g/dL (12.0-15.5) Hematocrit 29.1 % (36.0-47.0) Mean Corpuscular Volume 78 fL (79-100) Mean Corpuscular Hemoglobin 24 pg (25-35) Mean Corpuscular Hemoglobin Concent 31 g/dL (31-37) Red Cell Distribution Width 21.5 % (11.5-14.5) Platelet Count 355 x10^3/uL (140-400) Neutrophils (%) (Auto) 51 % (31-73) Lymphocytes (%) (Auto) 27 % (24-48) Monocytes (%) (Auto) 8 % (0-9) Eosinophils (%) (Auto) 12 % (0-3) Basophils (%) (Auto) 2 % (0-3) Neutrophils # (Auto) 2.6 x10^3uL (1.8-7.7) Lymphocytes # (Auto) 1.4 x10^3/uL (1.0-4.8) Monocytes # (Auto) 0.4 x10^3/uL (0.0-1.1) Eosinophils # (Auto) 0.6 x10^3/uL (0.0-0.7) Basophils # (Auto) 0.1 x10^3/uL (0.0-0.2) Sodium Level 136 mmol/L (136-145) Potassium Level 5.7 mmol/L (3.5-5.1) Chloride Level 106 mmol/L (98-107) Carbon Dioxide Level 28 mmol/L (21-32) Anion Gap 2 (6-14) Blood Urea Nitrogen 14 mg/dL (7-20) Creatinine 0.7 mg/dL (0.6-1.0) Estimated GFR (Cockcroft-Gault) 102.6 Glucose Level 80 mg/dL (70-99) Calcium Level 8.7 mg/dL (8.5-10.1) Phosphorus Level 2.5 mg/dL (2.6-4.7) Magnesium Level 2.4 mg/dL (1.8-2.4) Microbiology 04/23/17 Blood Culture - Preliminary, Resulted NO GROWTH AFTER 3 DAYS 04/22/17 Urine Culture - Final, Complete 04/22/17 Urine Culture Result 1 (ROYA) - Final, Complete 04/22/17 Antimicrobic Susceptibility - Final, Complete Medications Current Medications Fentanyl Citrate (Fentanyl 2ml Vial) 50 mcg PRN Q15MIN PRN IV PAIN GREATER THAN 3/10 Last administered on 04/22/17 20:37; Start 04/22/17 at 17:15; Stop 04/23/17 at 17:14; Status DC Sodium Chloride 1,000 ml @ 1,000 mls/hr Q1H IV Last administered on 04/22/17 17:29; Start 04/22/17 at 17:06; Stop 04/22/17 at 18:05; Status DC Ondansetron HCl (Zofran) 4 mg 1X ONCE IV Last administered on 04/22/17 17:28 ; Start 04/22/17 at 17:15; Stop 04/22/17 at 17:16; Status DC Potassium Chloride 50 ml @ 50 mls/hr 1X ONCE IV Last administered on 19:17; Start 04/22/17 at 18:00; Stop 04/22/17 at 18:59; Status DC Lidocaine (Xylocaine) 1 sang BID TP Last administered on 04/25/17 20:54; Start 04/22/17 at 21:00 Zinc Oxide 1 sang BID TP Last administered on 04/25/17 20:54; Start 04/22/17 at 21:00 Linezolid 300 ml @ 300 mls/hr Q12HR IV Last administered on 04/25/17 20:52; Start 04/22/17 at 21:00 Piperacillin Sod/ Tazobactam Sod 3.375 gm/Dextrose 50 ml @ 100 mls/hr Q6HRS IV ; Start 04/23/17 at 00:00; Status UNV Zolpidem Tartrate (Ambien) 5 mg PRN QHS PRN PO INSOMNIA, MAY REPEAT IN 1HR; Start 04/22/17 at 18:15 Potassium Chloride/Dextrose/ Sod Cl 1,000 ml @ 80 mls/hr 1X ONCE IV Last administered on 04/22/17 23:55; Start 04/22/17 at 18:15; Stop 04/23/17 at 06: 44; Status DC Hydromorphone HCl (Dilaudid) 2 mg PRN Q6HRS PRN PO PAIN; Start 04/22/17 at 18: 15 Ondansetron HCl (Zofran) 4 mg PRN Q8HRS PRN IV NAUSEA/VOMITING Last administered on 04/23/17 15:49; Start 04/22/17 at 18:15; Stop 04/23/17 at 18: 14; Status DC Info 1 each PRN DAILY PRN MC SEE COMMENTS Last administered on 04/25/17 12:14 ; Start 04/22/17 at 18:30 Magnesium Sulfate/ Dextrose 50 ml @ 25 mls/hr 1X ONCE IV Last administered on 04/22/17 19:17; Start 04/22/17 at 18:30; Stop 04/22/17 at 20:29; Status DC Potassium Chloride 50 ml @ 50 mls/hr Q1H IV Last administered on 04/22/17 23: 05; Start 04/22/17 at 18:30; Stop 04/22/17 at 21:29; Status DC Magnesium Sulfate/ Dextrose 50 ml @ 25 mls/hr 1X ONCE IV Last administered on 04/22/17 21:57; Start 04/22/17 at 20:30; Stop 04/22/17 at 22:29; Status DC Piperacillin Sod/ Tazobactam Sod (Zosyn) 3.375 gm Q6HRS IVP Last administered on 04/26/17 06:05; Start 04/22/17 at 18:30 Lorazepam (Ativan) 0.5 mg PRN Q6HRS PRN PO ANXIETY Last administered on 21:05; Start 04/22/17 at 22:15 Hydromorphone HCl (Dilaudid) 2 mg PRN Q4HRS PRN IV SEVERE PAIN Last administered on 04/23/17 06:18; Start 04/22/17 at 22:15; Stop 04/23/17 at 10: 15; Status DC Hydromorphone HCl (Dilaudid) 4 mg PRN Q6HRS PRN IV SEVERE PAIN Last administered on 04/26/17 06:08; Start 04/23/17 at 10:15 Acetaminophen (Tylenol) 650 mg PRN Q6HRS PRN PO MILD PAIN / TEMP; Start at 10:15 Fentanyl (Duragesic 25mcg/ Hr Patch) 1 patch Q3DAYS TD Last administered on 12:29; Start 04/23/17 at 10:30 Famotidine (Pepcid) 20 mg BID PO Last administered on 04/25/17 08:01; Start 04/23/17 at 11:00; Stop 04/25/17 at 08:38; Status DC Lorazepam (Ativan) 0.5 mg PRN Q6HRS PRN PO ANXIETY / AGITATION; Start at 10:15 Sertraline HCl (Zoloft) 50 mg DAILY PO Last administered on 04/25/17 08:01; Start 04/23/17 at 11:00 Ondansetron HCl (Zofran) 4 mg PRN Q6HRS PRN IV NAUSEA/VOMITING Last administered on 04/25/17 17:12; Start 04/23/17 at 10:15 Amlodipine Besylate (Norvasc) 10 mg DAILY PO Last administered on 04/25/17 08 :01; Start 04/23/17 at 11:00 Sodium Chloride 210 meq/Potassium Chloride 120 meq/ Magnesium Sulfate 32 meq/ Multivitamins 10 ml/Chromium/ Copper/Manganese/ Seleni/Zn 1 ml/ Total Parenteral Nutrition/Amino Acids/Dextrose/ Fat Emulsion Intravenous 1,920 ml @ 80 mls/hr TPN CONT IV ; Start 04/23/17 at 22:00; Stop 04/24/17 at 21:59; Status Cancel Magnesium Sulfate/ Dextrose 50 ml @ 25 mls/hr 1X ONCE IV Last administered on 04/23/17 15:49; Start 04/23/17 at 13:00; Stop 04/23/17 at 14:59; Status DC Sodium Chloride 210 meq/Potassium Chloride 120 meq/ Potassium Acetate 20 meq/ Magnesium Sulfate 32 meq/ Multivitamins 10 ml/Chromium/ Copper/Manganese/ Seleni /Zn 1 ml/ Total Parenteral Nutrition/Amino Acids/Dextrose/ Fat Emulsion Intravenous 1,920 ml @ 80 mls/hr TPN CONT IV Last administered on 04/23/17 20:27; Start 04/23/17 at 22:00; Stop 04/24/17 at 21:59; Status DC Alteplase, Recombinant (Cathflo) 2 mg 1X ONCE INT CAT Last administered on 10:00; Start 04/24/17 at 10:00; Stop 04/24/17 at 10:01; Status DC Sodium Chloride 210 meq/Potassium Chloride 120 meq/ Potassium Acetate 20 meq/ Magnesium Sulfate 32 meq/ Multivitamins 10 ml/Chromium/ Copper/Manganese/ Seleni /Zn 1 ml/ Total Parenteral Nutrition/Amino Acids/Dextrose/ Fat Emulsion Intravenous 1,920 ml @ 80 mls/hr TPN CONT IV Last administered on 04/24/17 22:40; Start 04/24/17 at 22:00; Stop 04/25/17 at 21:59; Status DC Diphenhydramine HCl (Benadryl) 25 mg PRN Q6HRS PRN PO ITCHING Last administered on 04/24/17 20:16; Start 04/24/17 at 13:45 Pantoprazole Sodium (Protonix) 40 mg DAILYAC PO Last administered on 10:47; Start 04/25/17 at 10:00 Hydrochlorothiazide (Hydrodiuril) 25 mg DAILY PO Last administered on 10:47; Start 04/25/17 at 09:00 Sodium Chloride 210 meq/Potassium Chloride 120 meq/ Potassium Acetate 20 meq/ Magnesium Sulfate 32 meq/ Multivitamins 10 ml/Chromium/ Copper/Manganese/ Seleni /Zn 1 ml/ Total Parenteral Nutrition/Amino Acids/Dextrose/ Fat Emulsion Intravenous 1,920 ml @ 80 mls/hr TPN CONT IV Last administered on 04/25/17 23:33; Start 04/25/17 at 22:00; Stop 04/26/17 at 08:17; Status DC Sodium Chloride 1,000 ml @ 80 mls/hr [id number] IV ; Start 04/26/17 at 08:15 Active Scripts Active FENTANYL 25mcg/hr (Fentanyl) 1 Each Patch.td72 1 Patch TD Q72H 30 Days Amlodipine Besylate 5 Mg Tablet 10 Mg PO DAILY 30 Days Sertraline Hcl 50 Mg Tablet 50 Mg PO DAILY 30 Days Famotidine 20 Mg Tablet 20 Mg PO BID 60 Days Lidocaine 35.44 Gm Oint...g. 1 Sang TP BID Reported Zofran Odt (Ondansetron) 4 Mg Tab.rapdis 1 Tab SL PRN Q8HRS PRN Zinc Oxide 56.7 Gm Oint...g. 56.7 Gm TP PRN BID Dilaudid (Hydromorphone Hcl) 2 Mg Tablet 1 Tab PO PRN QID PRN Lorazepam 0.5 Mg Tablet 0.5 Mg PO Q6HRS PRN Vitals/I & O Vital Sign - Last 24 Hours 04/25/17 04/25/17 04/25/17 04/25/17 10:52 11:05 15:09 17:12 Temp 97.9 97.6 97.9 97.6 Pulse 76 88 Resp 18 18 B/P (MAP) 196/109 (138) 189/93 (125) Pulse Ox 98 97 99 99 O2 Delivery Room Air Room Air Room Air Room Air 04/25/17 04/25/17 04/25/17 04/25/17 18:22 19:00 20:30 22:59 Temp 97.5 97.6 97.5 97.6 Pulse 91 88 Resp 19 18 B/P (MAP) 158/99 (118) 139/77 (97) Pulse Ox 99 100 96 O2 Delivery Room Air Room Air Room Air 04/25/17 04/26/17 04/26/17 04/26/17 23:33 03:00 06:08 06:38 Temp 97.6 97.6 Pulse 73 Resp 18 19 16 20 B/P (MAP) 142/75 (97) Pulse Ox 98 O2 Delivery Room Air Room Air Room Air Room Air 04/26/17 04/26/17 07:00 07:41 Temp 98.4 98.4 Pulse 69 Resp 18 B/P (MAP) 137/62 (87) Pulse Ox 96 O2 Delivery Room Air Room Air Nutrition Consultation Dietary Evaluation: Recommendations by RD: PPN/TPN Comments: continue home TPN regimen diet as tolerated Expected Outcomes/Goals: to meet > 75% est nutrition needs via TPN Malnutrition Findings: Weight Status: Appropriate BENITA LUTZ MD Apr 26, 2017 08:38
[2017-04-26] MEDS: IV NORMAL SALINE 1000ML BAG 1,000 ML IV SCH ×2 (08:40→20:45)
[2017-04-26] MEDS: hydroCHLOROthiazide 25 MG TABLET PO SCH (08:40)
[2017-04-26] MEDS: SERTRALINE 50 MG TABLET. PO SCH (08:40)
[2017-04-26] MEDS: PANTOPRAZOLE 40 MG TABLET.DR. PO SCH (08:40)
[2017-04-26] MEDS: amLODIPine BESYLATE 10 MG TABLET PO SCH (08:40)
[2017-04-26] MEDS: fentaNYL 25MCG/HR PATCH 1 PATCH PATCH.TD72 TD SCH (08:40)
[2017-04-26] MEDS: ZINC OXIDE 20% TOPICAL OINTMENT 28GM TUBE. TP SCH ×2 (08:43→20:48)
[2017-04-26] MEDS: LIDOCAINE 5% TOPICAL OINTMENT 35GM TUBE. TP SCH ×2 (08:43→20:48)
[2017-04-26] MEDS ORDERED: SODIUM POLYSTYRENE SULFONATE 15 GM/60 ML ORAL.SUSP. PO ONE (08:45)
--- NOTE | 2017-04-26 10:57 | PDOC ---
Infectious Disease Note Subjective Subjective Feeling ok Denies swelling, pruritus, rash or wheezing Denies N/V ROS ROS GEN: Denies fevers, chills, sweats HEENT: Denies blurred vision, sore throat CV: Denies chest pain RESP: Denies shortness of air, cough GI: Denies n/v/d NEURO: Denies confusion, dizziness MSK: Denies weakness, joint pain/swelling Vital Sign Vital Signs Vital Signs Date Time Temp Pulse Resp B/P (MAP) Pulse Ox O2 Delivery O2 Flow Rate FiO2 04/26/17 09:40 Room Air 04/26/17 08:40 69 137/62 04/26/17 08:40 16 04/26/17 07:00 98.4 96 98.4 Physical Exam PHYSICAL EXAM GENERAL: Propped up in bed, Looks well LUNGS: Clear HEART: S1 and S2 ABD: Soft, NT, EC fistula EXT: No edema, no cyanosis [employer]ER/DESIGNER: Alert, oriented x 3, no focal neurologic deficit SKIN: No rash Tunneled PICC. clean Labs Lab Laboratory Tests Test 04/26/17 06:10 White Blood Count 5.1 x10^3/uL (4.0-11.0) Red Blood Count 3.75 x10^6/uL (3.50-5.40) Hemoglobin 9.0 g/dL (12.0-15.5) Hematocrit 29.1 % (36.0-47.0) Mean Corpuscular Volume 78 fL (79-100) Mean Corpuscular Hemoglobin 24 pg (25-35) Mean Corpuscular Hemoglobin Concent 31 g/dL (31-37) Red Cell Distribution Width 21.5 % (11.5-14.5) Platelet Count 355 x10^3/uL (140-400) Neutrophils (%) (Auto) 51 % (31-73) Lymphocytes (%) (Auto) 27 % (24-48) Monocytes (%) (Auto) 8 % (0-9) Eosinophils (%) (Auto) 12 % (0-3) Basophils (%) (Auto) 2 % (0-3) Neutrophils # (Auto) 2.6 x10^3uL (1.8-7.7) Lymphocytes # (Auto) 1.4 x10^3/uL (1.0-4.8) Monocytes # (Auto) 0.4 x10^3/uL (0.0-1.1) Eosinophils # (Auto) 0.6 x10^3/uL (0.0-0.7) Basophils # (Auto) 0.1 x10^3/uL (0.0-0.2) Sodium Level 136 mmol/L (136-145) Potassium Level 5.7 mmol/L (3.5-5.1) Chloride Level 106 mmol/L (98-107) Carbon Dioxide Level 28 mmol/L (21-32) Anion Gap 2 (6-14) Blood Urea Nitrogen 14 mg/dL (7-20) Creatinine 0.7 mg/dL (0.6-1.0) Estimated GFR (Cockcroft-Gault) 102.6 Glucose Level 80 mg/dL (70-99) Calcium Level 8.7 mg/dL (8.5-10.1) Phosphorus Level 2.5 mg/dL (2.6-4.7) Magnesium Level 2.4 mg/dL (1.8-2.4) Objective Assessment Leukopenia and eosinophilia Fevers and chills prior to admit, now resolved. Pyuria. E. coli in urine Irritant contact dermatitis of abdomen for an enterocutaneous fistula drainage. History of intravenous vancomycin allergy. Chronic total parenteral nutrition therapy. Enterocutaneous and enterovesical fistula. History of methicillin-resistant Staphylococcus aureus, Enterobacter and klebsiella line infections. History of E. coli and Enterobacter aerogenes, Enterococcus faecium ampR and Enterococcus faecalis in the urine. Anemia of chronic disease. Hypertension. Depression. Esophagitis. History of deep venous thrombosis in 2010. History of diverticulosis and peptic ulcer disease. Plan Plan of Care D/c Zyvox Cont Zosyn for now Consult Dr. Soliman re: Eosinophilia ? med vs mcc TPN or other Monitor counts and temp f/u cultures ABBY MOTT MD Apr 26, 2017 10:57
[2017-04-26] MEDS: TPN PER PHARMACY MC PRN (12:52)
--- NOTE | 2017-04-26 20:12 | CONS ---
DATE OF CONSULTATION: 04/26/2017 REQUESTING PHYSICIAN: Dr. Surya Almanza. REASON FOR CONSULTATION: Eosinophilia. HISTORY OF PRESENT ILLNESS: The patient is a 62-year-old female who has a history of enterocutaneous fistula and enterovesical fistula, who is maintained on home total parenteral nutrition. She was admitted to [facility] on 04/23/2017 with complaints of dysuria, abdominal discomfort and fever of 101 degrees. She had a urinalysis done by her visiting nurse that showed pyuria. She was admitted to [facility] for further management. Infectious Disease was consulted. The patient was noted to have eosinophilia with an absolute eosinophil count of 0.8 on 04/22/2017 and then it normalized to 0.7 on 04/23/2017 and it has remained normal. I was asked to see the patient for further evaluation of eosinophilia. She denies any history of primary hematologic disorders. No history of skin rashes or pruritus. PAST MEDICAL HISTORY: Enterocutaneous fistula and she has had about 5 abdominal procedures to reverse that, which have failed; enterovesical fistula, depression, diverticulosis, erosive esophagitis, gastritis, hypertension, peptic ulcer disease, and sepsis. SOCIAL HISTORY: No smoking or alcohol abuse. FAMILY HISTORY: Negative for any primary hematologic disorders. REVIEW OF SYSTEMS: A 12-point review of systems was performed. Pertinent positives are mentioned in the history of present illness. Rest of the system review is negative. PHYSICAL EXAMINATION: GENERAL APPEARANCE: The patient is a 62-year-old female who is in no acute cardiorespiratory distress. VITAL SIGNS: Blood pressure 176/77, temperature 97.6. HEAD: Atraumatic, normocephalic. EYES: No icterus. NECK: Supple. CHEST: Bilaterally symmetrical. No crepitations or rhonchi heard. HEART: S1, S2 normal. ABDOMEN: Soft, nontender. CENTRAL NERVOUS SYSTEM: No focal neurological deficits. LYMPHATICS: No lymphadenopathy. SKIN: No rashes. PSYCHOLOGIC: Mood and affect are appropriate. MUSCULOSKELETAL: No joint effusions. LABORATORY DATA: From 04/26/2017, WBC 5.1, hemoglobin 9, platelet count 355. I reviewed prior records and her eosinophils have been normal since 2016. She has had mild eosinophilia on 02/13/2017 when the absolute eosinophil count was 0.8 and then it normalized again and on 04/22/2017 it was 0.8 and it has normalized again. IMPRESSION AND PLAN: 1. Eosinophilia. The patient has had evidence of relative eosinophilia, but the absolute eosinophil count has normalized. This is suggestive of a reactive eosinophilia, could be from underlying infection. However, since the eosinophil count is now normal and she only has mild relative eosinophil elevation, this would be clinically insignificant. I do not suspect any primary hematologic disorder. I would continue to monitor eosinophil counts. I would not recommend any further workup or changes to her current ongoing management. 2. Urinary tract infection. Continue management per Infectious Diseases. ENMA FINLEY MD DR: BANG/nts JOB#: [id number] / [id number] SURYA Casas MD MTDD
[2017-04-26] MEDS: LORazepam 0.5 MG TABLET PO PRN (20:48)
[2017-04-26] MEDS ORDERED: AMINO ACIDS IV SCH ×10 (22:00)
[2017-04-26] MEDS ORDERED: DEXTROSE 70% IV SCH ×10 (22:00)
[2017-04-26] MEDS ORDERED: TOTAL PARENTERAL NUTRITION IV SCH ×10 (22:00)
[2017-04-26] MEDS ORDERED: [UNRECOGNIZED DRUG - OTHER] IV SCH ×10 (22:00)
[2017-04-27] MEDS: PIPERACILLIN/TAZO IV Push 3.375 GM VIAL. IVP SCH ×2 (00:02→05:44)
[2017-04-27 03:00] VITALS: BP 166/89
[2017-04-27] MEDS: HYDROmorphone 2 MG/ML VIAL IV PRN ×4 (04:06→23:55)
[2017-04-27 06:05] LABS: BASO # 0.1 x10^3/uL (0.0-0.2); BASO % 2 % (0-3); EOS % 16 % (0-3); HEMOGLOBIN 8.4 g/dL (12.0-15.5); LYMPH # 1.3 x10^3/uL (1.0-4.8); LYMPH % 29 % (24-48); MEAN CORPUSCULAR HEMOGLOBIN 24 pg (25-35); MEAN CORPUSCULAR HGB CONC 31 g/dL (31-37); MEAN CORPUSCULAR VOLUME 78 fL (79-100); MONO % 7 % (0-9); NEUT % 46 % (31-73); PLATELET COUNT 325 x10^3/uL (140-400); RED BLOOD COUNT 3.47 x10^6/uL (3.50-5.40); RED CELL DISTRIBUTION WIDTH 21.7 % (11.5-14.5); WHITE BLOOD COUNT 4.4 x10^3/uL (4.0-11.0)
[2017-04-27 06:24] LABS: CALCIUM 8.5 mg/dL (8.5-10.1); CREATININE 0.8 mg/dL (0.6-1.0); GFR 87.9; POTASSIUM 4.9 mmol/L (3.5-5.1)
[2017-04-27 07:36] VITALS: BP 175/92
[2017-04-27] MEDS: SERTRALINE 50 MG TABLET. PO SCH (08:13)
[2017-04-27] MEDS: amLODIPine BESYLATE 10 MG TABLET PO SCH (08:13)
[2017-04-27] MEDS: PANTOPRAZOLE 40 MG TABLET.DR. PO SCH (08:13)
[2017-04-27] MEDS: hydroCHLOROthiazide 25 MG TABLET PO SCH (08:13)
[2017-04-27] MEDS: ZINC OXIDE 20% TOPICAL OINTMENT 28GM TUBE. TP SCH ×2 (08:14→22:21)
[2017-04-27] MEDS: LIDOCAINE 5% TOPICAL OINTMENT 35GM TUBE. TP SCH ×2 (08:14→22:21)
--- NOTE | 2017-04-27 10:05 | PDOC ---
Infectious Disease Note Subjective Subjective Feeling ok Denies swelling, pruritus, rash or wheezing Denies N/V ROS ROS GEN: Denies fevers, chills, sweats HEENT: Denies blurred vision, sore throat CV: Denies chest pain RESP: Denies shortness of air, cough GI: Denies n/v/d NEURO: Denies confusion, dizziness MSK: Denies weakness, joint pain/swelling Vital Sign Vital Signs Vital Signs Date Time Temp Pulse Resp B/P (MAP) Pulse Ox O2 Delivery O2 Flow Rate FiO2 04/27/17 08:13 76 175/92 04/27/17 07:36 97.6 16 100 Room Air 97.6 Physical Exam PHYSICAL EXAM GENERAL: Propped up in bed, Looks well Oc/Op - clear LUNGS: Clear HEART: S1 and S2 ABD: Soft, NT, EC fistula EXT: trace to 1 pus edema, no cyanosis FENCE POST CUTTER: Alert, oriented x 3, no focal neurologic deficit SKIN: No rash Tunneled PICC. clean Labs Lab Laboratory Tests Test 04/27/17 05:50 White Blood Count 4.4 x10^3/uL (4.0-11.0) Red Blood Count 3.47 x10^6/uL (3.50-5.40) Hemoglobin 8.4 g/dL (12.0-15.5) Hematocrit 27.0 % (36.0-47.0) Mean Corpuscular Volume 78 fL (79-100) Mean Corpuscular Hemoglobin 24 pg (25-35) Mean Corpuscular Hemoglobin Concent 31 g/dL (31-37) Red Cell Distribution Width 21.7 % (11.5-14.5) Platelet Count 325 x10^3/uL (140-400) Neutrophils (%) (Auto) 46 % (31-73) Lymphocytes (%) (Auto) 29 % (24-48) Monocytes (%) (Auto) 7 % (0-9) Eosinophils (%) (Auto) 16 % (0-3) Basophils (%) (Auto) 2 % (0-3) Neutrophils # (Auto) 2.0 x10^3uL (1.8-7.7) Lymphocytes # (Auto) 1.3 x10^3/uL (1.0-4.8) Monocytes # (Auto) 0.3 x10^3/uL (0.0-1.1) Eosinophils # (Auto) 0.7 x10^3/uL (0.0-0.7) Basophils # (Auto) 0.1 x10^3/uL (0.0-0.2) Sodium Level 136 mmol/L (136-145) Potassium Level 4.9 mmol/L (3.5-5.1) Chloride Level 105 mmol/L (98-107) Carbon Dioxide Level 26 mmol/L (21-32) Anion Gap 5 (6-14) Blood Urea Nitrogen 13 mg/dL (7-20) Creatinine 0.8 mg/dL (0.6-1.0) Estimated GFR (Cockcroft-Gault) 87.9 Glucose Level 119 mg/dL (70-99) Calcium Level 8.5 mg/dL (8.5-10.1) Magnesium Level 2.0 mg/dL (1.8-2.4) Objective Assessment Leukopenia and eosinophilia Fevers and chills prior to admit, now resolved. Pyuria. E. coli in urine Irritant contact dermatitis of abdomen for an enterocutaneous fistula drainage. History of intravenous vancomycin allergy. Chronic total parenteral nutrition therapy. Enterocutaneous and enterovesical fistula. History of methicillin-resistant Staphylococcus aureus, Enterobacter and klebsiella line infections. History of E. coli and Enterobacter aerogenes, Enterococcus faecium ampR and Enterococcus faecalis in the urine. Anemia of chronic disease. Hypertension. Depression. Esophagitis. History of deep venous thrombosis in 2010. History of diverticulosis and peptic ulcer disease. Plan Plan of Care D/c Zosyn begin Augmentin Elixir for 3 days Appreciate consult by Dr. Soliman re: Eosinophilia ABBY MOTT MD Apr 27, 2017 10:05
--- NOTE | 2017-04-27 10:13 | PDOC ---
PROGRESS NOTES Subjective Subjective feels better. bp is high and has bilateral leg edema possibly from amlodipine. will d/c amlodipine and start hydrazine and isosorbide dinitrate and continue hctz. lab reviewed. Objective Objective Vital Signs Date Time Temp Pulse Resp B/P (MAP) Pulse Ox O2 Delivery O2 Flow Rate FiO2 04/27/17 08:13 76 175/92 04/27/17 07:36 97.6 16 100 Room Air 97.6 Intake and Output 04/27/17 07:00 Intake Total 600 ml Output Total 300 ml Balance 300 ml Intake Oral 600 ml Output Urine Total 300 ml Physical Exam Abdomen: Soft, Other (enterocutaneous fistula) Heart: Regular rate, Normal S1, Normal S2 Extremities: Other (2 plus bipedal edema) General: Alert HEENT: Atraumatic Lungs: Clear to auscultation Neuro: Normal speech Psych/Mental Status: Mental status NL Skin: No rashes Assessment Assessment Problems1. Fever, although she is afebrile now. 2. e. coli uti in setting of enterovesical fistula. 3. Abdominal pain.due to adhesions 4. Enterocutaneous fistula. 5. Enterovesical fistula. 6. Hypokalemia.treated 7. Hypomagnesemia. treated 8. Severe protein-calorie malnutrition. 9. Hypertension. bp high reflux esophagitis bilateral leg edema Medical Problems: (1) Enterocutaneous fistula Status: Acute (2) Hypokalemia Status: Acute (3) Hypomagnesemia Status: Acute (4) Severe protein-calorie malnutrition Status: Acute (5) UTI (urinary tract infection) Status: Acute Plan Plan of Care switched to augmentin continue TPN d/c amlodipine due to leg edema start hydralazine and isosorbide dinitrate for hypertension lab tomorrow Comment Review of Relevant I have reviewed the following items lucila (where applicable) has been applied. Labs Laboratory Tests Test 04/26/17 06:10 04/27/17 05:50 White Blood Count 5.1 x10^3/uL (4.0-11.0) 4.4 x10^3/uL (4.0-11.0) Red Blood Count 3.75 x10^6/uL (3.50-5.40) 3.47 x10^6/uL (3.50-5.40) Hemoglobin 9.0 g/dL (12.0-15.5) 8.4 g/dL (12.0-15.5) Hematocrit 29.1 % (36.0-47.0) 27.0 % (36.0-47.0) Mean Corpuscular Volume 78 fL (79-100) 78 fL (79-100) Mean Corpuscular Hemoglobin 24 pg (25-35) 24 pg (25-35) Mean Corpuscular Hemoglobin Concent 31 g/dL (31-37) 31 g/dL (31-37) Red Cell Distribution Width 21.5 % (11.5-14.5) 21.7 % (11.5-14.5) Platelet Count 355 x10^3/uL (140-400) 325 x10^3/uL (140-400) Neutrophils (%) (Auto) 51 % (31-73) 46 % (31-73) Lymphocytes (%) (Auto) 27 % (24-48) 29 % (24-48) Monocytes (%) (Auto) 8 % (0-9) 7 % (0-9) Eosinophils (%) (Auto) 12 % (0-3) 16 % (0-3) Basophils (%) (Auto) 2 % (0-3) 2 % (0-3) Neutrophils # (Auto) 2.6 x10^3uL (1.8-7.7) 2.0 x10^3uL (1.8-7.7) Lymphocytes # (Auto) 1.4 x10^3/uL (1.0-4.8) 1.3 x10^3/uL (1.0-4.8) Monocytes # (Auto) 0.4 x10^3/uL (0.0-1.1) 0.3 x10^3/uL (0.0-1.1) Eosinophils # (Auto) 0.6 x10^3/uL (0.0-0.7) 0.7 x10^3/uL (0.0-0.7) Basophils # (Auto) 0.1 x10^3/uL (0.0-0.2) 0.1 x10^3/uL (0.0-0.2) Sodium Level 136 mmol/L (136-145) 136 mmol/L (136-145) Potassium Level 5.7 mmol/L (3.5-5.1) 4.9 mmol/L (3.5-5.1) Chloride Level 106 mmol/L (98-107) 105 mmol/L (98-107) Carbon Dioxide Level 28 mmol/L (21-32) 26 mmol/L (21-32) Anion Gap 2 (6-14) 5 (6-14) Blood Urea Nitrogen 14 mg/dL (7-20) 13 mg/dL (7-20) Creatinine 0.7 mg/dL (0.6-1.0) 0.8 mg/dL (0.6-1.0) Estimated GFR (Cockcroft-Gault) 102.6 87.9 Glucose Level 80 mg/dL (70-99) 119 mg/dL (70-99) Calcium Level 8.7 mg/dL (8.5-10.1) 8.5 mg/dL (8.5-10.1) Phosphorus Level 2.5 mg/dL (2.6-4.7) Magnesium Level 2.4 mg/dL (1.8-2.4) 2.0 mg/dL (1.8-2.4) Laboratory Tests Test 04/27/17 05:50 White Blood Count 4.4 x10^3/uL (4.0-11.0) Red Blood Count 3.47 x10^6/uL (3.50-5.40) Hemoglobin 8.4 g/dL (12.0-15.5) Hematocrit 27.0 % (36.0-47.0) Mean Corpuscular Volume 78 fL (79-100) Mean Corpuscular Hemoglobin 24 pg (25-35) Mean Corpuscular Hemoglobin Concent 31 g/dL (31-37) Red Cell Distribution Width 21.7 % (11.5-14.5) Platelet Count 325 x10^3/uL (140-400) Neutrophils (%) (Auto) 46 % (31-73) Lymphocytes (%) (Auto) 29 % (24-48) Monocytes (%) (Auto) 7 % (0-9) Eosinophils (%) (Auto) 16 % (0-3) Basophils (%) (Auto) 2 % (0-3) Neutrophils # (Auto) 2.0 x10^3uL (1.8-7.7) Lymphocytes # (Auto) 1.3 x10^3/uL (1.0-4.8) Monocytes # (Auto) 0.3 x10^3/uL (0.0-1.1) Eosinophils # (Auto) 0.7 x10^3/uL (0.0-0.7) Basophils # (Auto) 0.1 x10^3/uL (0.0-0.2) Sodium Level 136 mmol/L (136-145) Potassium Level 4.9 mmol/L (3.5-5.1) Chloride Level 105 mmol/L (98-107) Carbon Dioxide Level 26 mmol/L (21-32) Anion Gap 5 (6-14) Blood Urea Nitrogen 13 mg/dL (7-20) Creatinine 0.8 mg/dL (0.6-1.0) Estimated GFR (Cockcroft-Gault) 87.9 Glucose Level 119 mg/dL (70-99) Calcium Level 8.5 mg/dL (8.5-10.1) Magnesium Level 2.0 mg/dL (1.8-2.4) Microbiology 04/23/17 Blood Culture - Preliminary, Resulted NO GROWTH AFTER 4 DAYS 04/22/17 Urine Culture - Final, Complete 04/22/17 Urine Culture Result 1 (ROYA) - Final, Complete 04/22/17 Antimicrobic Susceptibility - Final, Complete Medications Current Medications Fentanyl Citrate (Fentanyl 2ml Vial) 50 mcg PRN Q15MIN PRN IV PAIN GREATER THAN 3/10 Last administered on 04/22/17 20:37; Start 04/22/17 at 17:15; Stop 04/23/17 at 17:14; Status DC Sodium Chloride 1,000 ml @ 1,000 mls/hr Q1H IV Last administered on 04/22/17 17:29; Start 04/22/17 at 17:06; Stop 04/22/17 at 18:05; Status DC Ondansetron HCl (Zofran) 4 mg 1X ONCE IV Last administered on 04/22/17 17:28 ; Start 04/22/17 at 17:15; Stop 04/22/17 at 17:16; Status DC Potassium Chloride 50 ml @ 50 mls/hr 1X ONCE IV Last administered on 19:17; Start 04/22/17 at 18:00; Stop 04/22/17 at 18:59; Status DC Lidocaine (Xylocaine) 1 sang BID TP Last administered on 04/27/17 08:14; Start 04/22/17 at 21:00 Zinc Oxide 1 sang BID TP Last administered on 04/27/17 08:14; Start 04/22/17 at 21:00 Linezolid 300 ml @ 300 mls/hr Q12HR IV Last administered on 04/26/17 08:42; Start 04/22/17 at 21:00; Stop 04/26/17 at 10:54; Status DC Piperacillin Sod/ Tazobactam Sod 3.375 gm/Dextrose 50 ml @ 100 mls/hr Q6HRS IV ; Start 04/23/17 at 00:00; Status UNV Zolpidem Tartrate (Ambien) 5 mg PRN QHS PRN PO INSOMNIA, MAY REPEAT IN 1HR; Start 04/22/17 at 18:15 Potassium Chloride/Dextrose/ Sod Cl 1,000 ml @ 80 mls/hr 1X ONCE IV Last administered on 04/22/17 23:55; Start 04/22/17 at 18:15; Stop 04/23/17 at 06: 44; Status DC Hydromorphone HCl (Dilaudid) 2 mg PRN Q6HRS PRN PO PAIN; Start 04/22/17 at 18: 15; Stop 04/26/17 at 12:43; Status DC Ondansetron HCl (Zofran) 4 mg PRN Q8HRS PRN IV NAUSEA/VOMITING Last administered on 04/23/17 15:49; Start 04/22/17 at 18:15; Stop 04/23/17 at 18: 14; Status DC Info 1 each PRN DAILY PRN MC SEE COMMENTS Last administered on 04/26/17 12:52 ; Start 04/22/17 at 18:30 Magnesium Sulfate/ Dextrose 50 ml @ 25 mls/hr 1X ONCE IV Last administered on 04/22/17 19:17; Start 04/22/17 at 18:30; Stop 04/22/17 at 20:29; Status DC Potassium Chloride 50 ml @ 50 mls/hr Q1H IV Last administered on 04/22/17 23: 05; Start 04/22/17 at 18:30; Stop 04/22/17 at 21:29; Status DC Magnesium Sulfate/ Dextrose 50 ml @ 25 mls/hr 1X ONCE IV Last administered on 04/22/17 21:57; Start 04/22/17 at 20:30; Stop 04/22/17 at 22:29; Status DC Piperacillin Sod/ Tazobactam Sod (Zosyn) 3.375 gm Q6HRS IVP Last administered on 04/27/17 05:44; Start 04/22/17 at 18:30; Stop 04/27/17 at 10:05; Status DC Lorazepam (Ativan) 0.5 mg PRN Q6HRS PRN PO ANXIETY Last administered on 21:05; Start 04/22/17 at 22:15; Stop 04/26/17 at 12:43; Status DC Hydromorphone HCl (Dilaudid) 2 mg PRN Q4HRS PRN IV SEVERE PAIN Last administered on 04/23/17 06:18; Start 04/22/17 at 22:15; Stop 04/23/17 at 10: 15; Status DC Hydromorphone HCl (Dilaudid) 4 mg PRN Q6HRS PRN IV SEVERE PAIN Last administered on 04/27/17 04:06; Start 04/23/17 at 10:15 Acetaminophen (Tylenol) 650 mg PRN Q6HRS PRN PO MILD PAIN / TEMP; Start at 10:15 Fentanyl (Duragesic 25mcg/ Hr Patch) 1 patch Q3DAYS TD Last administered on 08:40; Start 04/23/17 at 10:30 Famotidine (Pepcid) 20 mg BID PO Last administered on 04/25/17 08:01; Start 04/23/17 at 11:00; Stop 04/25/17 at 08:38; Status DC Lorazepam (Ativan) 0.5 mg PRN Q6HRS PRN PO ANXIETY / AGITATION Last administered on 04/26/17 20:48; Start 04/23/17 at 10:15 Sertraline HCl (Zoloft) 50 mg DAILY PO Last administered on 04/27/17 08:13; Start 04/23/17 at 11:00 Ondansetron HCl (Zofran) 4 mg PRN Q6HRS PRN IV NAUSEA/VOMITING Last administered on 04/25/17 17:12; Start 04/23/17 at 10:15 Amlodipine Besylate (Norvasc) 10 mg DAILY PO Last administered on 04/27/17 08 :13; Start 04/23/17 at 11:00 Sodium Chloride 210 meq/Potassium Chloride 120 meq/ Magnesium Sulfate 32 meq/ Multivitamins 10 ml/Chromium/ Copper/Manganese/ Seleni/Zn 1 ml/ Total Parenteral Nutrition/Amino Acids/Dextrose/ Fat Emulsion Intravenous 1,920 ml @ 80 mls/hr TPN CONT IV ; Start 04/23/17 at 22:00; Stop 04/24/17 at 21:59; Status Cancel Magnesium Sulfate/ Dextrose 50 ml @ 25 mls/hr 1X ONCE IV Last administered on 04/23/17 15:49; Start 04/23/17 at 13:00; Stop 04/23/17 at 14:59; Status DC Sodium Chloride 210 meq/Potassium Chloride 120 meq/ Potassium Acetate 20 meq/ Magnesium Sulfate 32 meq/ Multivitamins 10 ml/Chromium/ Copper/Manganese/ Seleni /Zn 1 ml/ Total Parenteral Nutrition/Amino Acids/Dextrose/ Fat Emulsion Intravenous 1,920 ml @ 80 mls/hr TPN CONT IV Last administered on 04/23/17 20:27; Start 04/23/17 at 22:00; Stop 04/24/17 at 21:59; Status DC Alteplase, Recombinant (Cathflo) 2 mg 1X ONCE INT CAT Last administered on 10:00; Start 04/24/17 at 10:00; Stop 04/24/17 at 10:01; Status DC Sodium Chloride 210 meq/Potassium Chloride 120 meq/ Potassium Acetate 20 meq/ Magnesium Sulfate 32 meq/ Multivitamins 10 ml/Chromium/ Copper/Manganese/ Seleni /Zn 1 ml/ Total Parenteral Nutrition/Amino Acids/Dextrose/ Fat Emulsion Intravenous 1,920 ml @ 80 mls/hr TPN CONT IV Last administered on 04/24/17 22:40; Start 04/24/17 at 22:00; Stop 04/25/17 at 21:59; Status DC Diphenhydramine HCl (Benadryl) 25 mg PRN Q6HRS PRN PO ITCHING Last administered on 04/24/17 20:16; Start 04/24/17 at 13:45 Pantoprazole Sodium (Protonix) 40 mg DAILYAC PO Last administered on 08:13; Start 04/25/17 at 10:00 Hydrochlorothiazide (Hydrodiuril) 25 mg DAILY PO Last administered on 08:13; Start 04/25/17 at 09:00 Sodium Chloride 210 meq/Potassium Chloride 120 meq/ Potassium Acetate 20 meq/ Magnesium Sulfate 32 meq/ Multivitamins 10 ml/Chromium/ Copper/Manganese/ Seleni /Zn 1 ml/ Total Parenteral Nutrition/Amino Acids/Dextrose/ Fat Emulsion Intravenous 1,920 ml @ 80 mls/hr TPN CONT IV Last administered on 04/25/17 23:33; Start 04/25/17 at 22:00; Stop 04/26/17 at 08:17; Status DC Sodium Chloride 1,000 ml @ 80 mls/hr [id number] IV Last administered on 08:40; Start 04/26/17 at 08:15; Stop 04/26/17 at 22:08; Status DC Sodium Polystyrene Sulfonate (Kayexalate) 15 gm 1X ONCE PO Last administered on 04/26/17 08:52; Start 04/26/17 at 08:45; Stop 04/26/17 at 08:46; Status DC Sodium Chloride 210 meq/Potassium Chloride 80 meq/ Potassium Acetate 20 meq/ Magnesium Sulfate 32 meq/ Multivitamins 10 ml/Chromium/ Copper/Manganese/ Seleni /Zn 1 ml/ Potassium Phosphate 6.8 mmol/Total Parenteral Nutrition/Amino Acids/ Dextrose/ Fat Emulsion Intravenous 1,920 ml @ 80 mls/hr TPN CONT IV Last administered on 04/26/17 22:08; Start 04/26/17 at 22:00; Stop 04/27/17 at 21 :59 Amoxicillin/ Clavulanate Potassium (Augmentin 400-57mg/5ml Susp) 10 ml Q12HR PO ; Start 04/27/17 at 11:00 Active Scripts Active FENTANYL 25mcg/hr (Fentanyl) 1 Each Patch.td72 1 Patch TD Q72H 30 Days Amlodipine Besylate 5 Mg Tablet 10 Mg PO DAILY 30 Days Sertraline Hcl 50 Mg Tablet 50 Mg PO DAILY 30 Days Famotidine 20 Mg Tablet 20 Mg PO BID 60 Days Lidocaine 35.44 Gm Oint...g. 1 Sang TP BID Reported Zofran Odt (Ondansetron) 4 Mg Tab.rapdis 1 Tab SL PRN Q8HRS PRN Zinc Oxide 56.7 Gm Oint...g. 56.7 Gm TP PRN BID Dilaudid (Hydromorphone Hcl) 2 Mg Tablet 1 Tab PO PRN QID PRN Lorazepam 0.5 Mg Tablet 0.5 Mg PO Q6HRS PRN Vitals/I & O Vital Sign - Last 24 Hours 04/26/17 04/26/17 04/26/17 04/26/17 11:00 11:35 12:23 15:00 Temp 97.8 97.6 97.8 97.6 Pulse 81 74 Resp 18 18 B/P (MAP) 159/98 (118) 176/77 (110) Pulse Ox 98 99 O2 Delivery Room Air Room Air Room Air Room Air 04/26/17 04/26/17 04/26/17 04/26/17 17:05 17:05 18:59 20:00 Temp 97.8 97.8 Pulse 72 76 Resp 17 B/P (MAP) 175/69 (104) 156/96 (116) 137/83 (101) Pulse Ox 100 O2 Delivery Room Air Room Air 04/26/17 04/26/17 04/27/17 04/27/17 20:49 23:50 03:00 04:06 Temp 97.7 97.5 97.7 97.5 Pulse 67 80 Resp 17 16 B/P (MAP) 167/76 (106) 166/89 (114) Pulse Ox 100 98 O2 Delivery Room Air Room Air Room Air Room Air 04/27/17 04/27/17 04/27/17 04/27/17 04:36 07:18 07:36 08:13 Temp 97.6 97.6 Pulse 76 76 Resp 16 B/P (MAP) 175/92 (119) 175/92 Pulse Ox 100 O2 Delivery Room Air Room Air Room Air Intake and Output 04/26/17 04/26/17 04/27/17 15:00 23:00 07:00 Intake Total 400 ml 200 ml Output Total 300 ml Balance 100 ml 200 ml Nutrition Consultation Dietary Evaluation: Recommendations by RD: PPN/TPN Comments: continue home TPN regimen diet as tolerated Expected Outcomes/Goals: to continue to meet > 75% est nutrition needs via TPN Malnutrition Findings: Weight Status: Appropriate BENITA LUTZ MD Apr 27, 2017 10:13
[2017-04-27] MEDS: AMOXICILLIN/CLAV 400MG/57MG 5 ML ORAL.SUSP. PO SCH ×2 (10:39→22:21)
[2017-04-27] MEDS: hydrALAZINE 25 MG TABLET PO SCH ×3 (10:39→22:19)
[2017-04-27] MEDS: ISOSORBIDE DINITRATE 10 MG TABLET. PO SCH ×3 (10:40→21:00)
--- NOTE | 2017-04-27 10:44 | PDOC ---
PROGRESS NOTES Subjective Subjective HPI - f/u of Eosinophilia ROS- no fever Objective Objective Vital Signs Date Time Temp Pulse Resp B/P (MAP) Pulse Ox O2 Delivery O2 Flow Rate FiO2 04/27/17 08:13 76 175/92 04/27/17 07:36 97.6 16 100 Room Air 97.6 Intake and Output 04/27/17 07:00 Intake Total 600 ml Output Total 300 ml Balance 300 ml Intake Oral 600 ml Output Urine Total 300 ml Physical Exam Heart: Normal S1, Normal S2 General: Alert, Oriented X3, No acute distress Neuro: Normal speech Assessment Assessment Problems Medical Problems: (1) Enterocutaneous fistula Status: Acute (2) Hypokalemia Status: Acute (3) Hypomagnesemia Status: Acute (4) Severe protein-calorie malnutrition Status: Acute (5) UTI (urinary tract infection) Status: Acute IMPRESSION AND PLAN: 1. Eosinophilia. The patient has had evidence of relative eosinophilia, but the absolute eosinophil count has normalized. This is suggestive of a reactive eosinophilia, could be from underlying infection. However, since the eosinophil count is now normal and she only has mild relative eosinophil elevation, this would be clinically insignificant. I do not suspect any primary hematologic disorder. I would continue to monitor eosinophil counts. I would not recommend any further workup or changes to her current ongoing management. Eos today 16%. Monitor. I d/w DR Almanza. 2. Urinary tract infection. Continue management per Infectious Diseases. Comment Review of Relevant I have reviewed the following items lucila (where applicable) has been applied. Labs Laboratory Tests Test 04/26/17 06:10 04/27/17 05:50 White Blood Count 5.1 x10^3/uL (4.0-11.0) 4.4 x10^3/uL (4.0-11.0) Red Blood Count 3.75 x10^6/uL (3.50-5.40) 3.47 x10^6/uL (3.50-5.40) Hemoglobin 9.0 g/dL (12.0-15.5) 8.4 g/dL (12.0-15.5) Hematocrit 29.1 % (36.0-47.0) 27.0 % (36.0-47.0) Mean Corpuscular Volume 78 fL (79-100) 78 fL (79-100) Mean Corpuscular Hemoglobin 24 pg (25-35) 24 pg (25-35) Mean Corpuscular Hemoglobin Concent 31 g/dL (31-37) 31 g/dL (31-37) Red Cell Distribution Width 21.5 % (11.5-14.5) 21.7 % (11.5-14.5) Platelet Count 355 x10^3/uL (140-400) 325 x10^3/uL (140-400) Neutrophils (%) (Auto) 51 % (31-73) 46 % (31-73) Lymphocytes (%) (Auto) 27 % (24-48) 29 % (24-48) Monocytes (%) (Auto) 8 % (0-9) 7 % (0-9) Eosinophils (%) (Auto) 12 % (0-3) 16 % (0-3) Basophils (%) (Auto) 2 % (0-3) 2 % (0-3) Neutrophils # (Auto) 2.6 x10^3uL (1.8-7.7) 2.0 x10^3uL (1.8-7.7) Lymphocytes # (Auto) 1.4 x10^3/uL (1.0-4.8) 1.3 x10^3/uL (1.0-4.8) Monocytes # (Auto) 0.4 x10^3/uL (0.0-1.1) 0.3 x10^3/uL (0.0-1.1) Eosinophils # (Auto) 0.6 x10^3/uL (0.0-0.7) 0.7 x10^3/uL (0.0-0.7) Basophils # (Auto) 0.1 x10^3/uL (0.0-0.2) 0.1 x10^3/uL (0.0-0.2) Sodium Level 136 mmol/L (136-145) 136 mmol/L (136-145) Potassium Level 5.7 mmol/L (3.5-5.1) 4.9 mmol/L (3.5-5.1) Chloride Level 106 mmol/L (98-107) 105 mmol/L (98-107) Carbon Dioxide Level 28 mmol/L (21-32) 26 mmol/L (21-32) Anion Gap 2 (6-14) 5 (6-14) Blood Urea Nitrogen 14 mg/dL (7-20) 13 mg/dL (7-20) Creatinine 0.7 mg/dL (0.6-1.0) 0.8 mg/dL (0.6-1.0) Estimated GFR (Cockcroft-Gault) 102.6 87.9 Glucose Level 80 mg/dL (70-99) 119 mg/dL (70-99) Calcium Level 8.7 mg/dL (8.5-10.1) 8.5 mg/dL (8.5-10.1) Phosphorus Level 2.5 mg/dL (2.6-4.7) Magnesium Level 2.4 mg/dL (1.8-2.4) 2.0 mg/dL (1.8-2.4) Laboratory Tests Test 04/27/17 05:50 White Blood Count 4.4 x10^3/uL (4.0-11.0) Red Blood Count 3.47 x10^6/uL (3.50-5.40) Hemoglobin 8.4 g/dL (12.0-15.5) Hematocrit 27.0 % (36.0-47.0) Mean Corpuscular Volume 78 fL (79-100) Mean Corpuscular Hemoglobin 24 pg (25-35) Mean Corpuscular Hemoglobin Concent 31 g/dL (31-37) Red Cell Distribution Width 21.7 % (11.5-14.5) Platelet Count 325 x10^3/uL (140-400) Neutrophils (%) (Auto) 46 % (31-73) Lymphocytes (%) (Auto) 29 % (24-48) Monocytes (%) (Auto) 7 % (0-9) Eosinophils (%) (Auto) 16 % (0-3) Basophils (%) (Auto) 2 % (0-3) Neutrophils # (Auto) 2.0 x10^3uL (1.8-7.7) Lymphocytes # (Auto) 1.3 x10^3/uL (1.0-4.8) Monocytes # (Auto) 0.3 x10^3/uL (0.0-1.1) Eosinophils # (Auto) 0.7 x10^3/uL (0.0-0.7) Basophils # (Auto) 0.1 x10^3/uL (0.0-0.2) Sodium Level 136 mmol/L (136-145) Potassium Level 4.9 mmol/L (3.5-5.1) Chloride Level 105 mmol/L (98-107) Carbon Dioxide Level 26 mmol/L (21-32) Anion Gap 5 (6-14) Blood Urea Nitrogen 13 mg/dL (7-20) Creatinine 0.8 mg/dL (0.6-1.0) Estimated GFR (Cockcroft-Gault) 87.9 Glucose Level 119 mg/dL (70-99) Calcium Level 8.5 mg/dL (8.5-10.1) Magnesium Level 2.0 mg/dL (1.8-2.4) Microbiology 04/23/17 Blood Culture - Preliminary, Resulted NO GROWTH AFTER 4 DAYS 04/22/17 Urine Culture - Final, Complete 04/22/17 Urine Culture Result 1 (ROYA) - Final, Complete 04/22/17 Antimicrobic Susceptibility - Final, Complete Medications Current Medications Fentanyl Citrate (Fentanyl 2ml Vial) 50 mcg PRN Q15MIN PRN IV PAIN GREATER THAN 3/10 Last administered on 04/22/17 20:37; Start 04/22/17 at 17:15; Stop 04/23/17 at 17:14; Status DC Sodium Chloride 1,000 ml @ 1,000 mls/hr Q1H IV Last administered on 04/22/17 17:29; Start 04/22/17 at 17:06; Stop 04/22/17 at 18:05; Status DC Ondansetron HCl (Zofran) 4 mg 1X ONCE IV Last administered on 04/22/17 17:28 ; Start 04/22/17 at 17:15; Stop 04/22/17 at 17:16; Status DC Potassium Chloride 50 ml @ 50 mls/hr 1X ONCE IV Last administered on 19:17; Start 04/22/17 at 18:00; Stop 04/22/17 at 18:59; Status DC Lidocaine (Xylocaine) 1 sang BID TP Last administered on 04/27/17 08:14; Start 04/22/17 at 21:00 Zinc Oxide 1 sang BID TP Last administered on 04/27/17 08:14; Start 04/22/17 at 21:00 Linezolid 300 ml @ 300 mls/hr Q12HR IV Last administered on 04/26/17 08:42; Start 04/22/17 at 21:00; Stop 04/26/17 at 10:54; Status DC Piperacillin Sod/ Tazobactam Sod 3.375 gm/Dextrose 50 ml @ 100 mls/hr Q6HRS IV ; Start 04/23/17 at 00:00; Status UNV Zolpidem Tartrate (Ambien) 5 mg PRN QHS PRN PO INSOMNIA, MAY REPEAT IN 1HR; Start 04/22/17 at 18:15 Potassium Chloride/Dextrose/ Sod Cl 1,000 ml @ 80 mls/hr 1X ONCE IV Last administered on 04/22/17 23:55; Start 04/22/17 at 18:15; Stop 04/23/17 at 06: 44; Status DC Hydromorphone HCl (Dilaudid) 2 mg PRN Q6HRS PRN PO PAIN; Start 04/22/17 at 18: 15; Stop 04/26/17 at 12:43; Status DC Ondansetron HCl (Zofran) 4 mg PRN Q8HRS PRN IV NAUSEA/VOMITING Last administered on 04/23/17 15:49; Start 04/22/17 at 18:15; Stop 04/23/17 at 18: 14; Status DC Info 1 each PRN DAILY PRN MC SEE COMMENTS Last administered on 04/26/17 12:52 ; Start 04/22/17 at 18:30 Magnesium Sulfate/ Dextrose 50 ml @ 25 mls/hr 1X ONCE IV Last administered on 04/22/17 19:17; Start 04/22/17 at 18:30; Stop 04/22/17 at 20:29; Status DC Potassium Chloride 50 ml @ 50 mls/hr Q1H IV Last administered on 04/22/17 23: 05; Start 04/22/17 at 18:30; Stop 04/22/17 at 21:29; Status DC Magnesium Sulfate/ Dextrose 50 ml @ 25 mls/hr 1X ONCE IV Last administered on 04/22/17 21:57; Start 04/22/17 at 20:30; Stop 04/22/17 at 22:29; Status DC Piperacillin Sod/ Tazobactam Sod (Zosyn) 3.375 gm Q6HRS IVP Last administered on 04/27/17 05:44; Start 04/22/17 at 18:30; Stop 04/27/17 at 10:05; Status DC Lorazepam (Ativan) 0.5 mg PRN Q6HRS PRN PO ANXIETY Last administered on 21:05; Start 04/22/17 at 22:15; Stop 04/26/17 at 12:43; Status DC Hydromorphone HCl (Dilaudid) 2 mg PRN Q4HRS PRN IV SEVERE PAIN Last administered on 04/23/17 06:18; Start 04/22/17 at 22:15; Stop 04/23/17 at 10: 15; Status DC Hydromorphone HCl (Dilaudid) 4 mg PRN Q6HRS PRN IV SEVERE PAIN Last administered on 04/27/17 04:06; Start 04/23/17 at 10:15 Acetaminophen (Tylenol) 650 mg PRN Q6HRS PRN PO MILD PAIN / TEMP; Start at 10:15 Fentanyl (Duragesic 25mcg/ Hr Patch) 1 patch Q3DAYS TD Last administered on 08:40; Start 04/23/17 at 10:30 Famotidine (Pepcid) 20 mg BID PO Last administered on 04/25/17 08:01; Start 04/23/17 at 11:00; Stop 04/25/17 at 08:38; Status DC Lorazepam (Ativan) 0.5 mg PRN Q6HRS PRN PO ANXIETY / AGITATION Last administered on 04/26/17 20:48; Start 04/23/17 at 10:15 Sertraline HCl (Zoloft) 50 mg DAILY PO Last administered on 04/27/17 08:13; Start 04/23/17 at 11:00 Ondansetron HCl (Zofran) 4 mg PRN Q6HRS PRN IV NAUSEA/VOMITING Last administered on 04/25/17 17:12; Start 04/23/17 at 10:15 Amlodipine Besylate (Norvasc) 10 mg DAILY PO Last administered on 04/27/17 08 :13; Start 04/23/17 at 11:00; Stop 04/27/17 at 10:10; Status DC Sodium Chloride 210 meq/Potassium Chloride 120 meq/ Magnesium Sulfate 32 meq/ Multivitamins 10 ml/Chromium/ Copper/Manganese/ Seleni/Zn 1 ml/ Total Parenteral Nutrition/Amino Acids/Dextrose/ Fat Emulsion Intravenous 1,920 ml @ 80 mls/hr TPN CONT IV ; Start 04/23/17 at 22:00; Stop 04/24/17 at 21:59; Status Cancel Magnesium Sulfate/ Dextrose 50 ml @ 25 mls/hr 1X ONCE IV Last administered on 04/23/17 15:49; Start 04/23/17 at 13:00; Stop 04/23/17 at 14:59; Status DC Sodium Chloride 210 meq/Potassium Chloride 120 meq/ Potassium Acetate 20 meq/ Magnesium Sulfate 32 meq/ Multivitamins 10 ml/Chromium/ Copper/Manganese/ Seleni /Zn 1 ml/ Total Parenteral Nutrition/Amino Acids/Dextrose/ Fat Emulsion Intravenous 1,920 ml @ 80 mls/hr TPN CONT IV Last administered on 04/23/17 20:27; Start 04/23/17 at 22:00; Stop 04/24/17 at 21:59; Status DC Alteplase, Recombinant (Cathflo) 2 mg 1X ONCE INT CAT Last administered on 10:00; Start 04/24/17 at 10:00; Stop 04/24/17 at 10:01; Status DC Sodium Chloride 210 meq/Potassium Chloride 120 meq/ Potassium Acetate 20 meq/ Magnesium Sulfate 32 meq/ Multivitamins 10 ml/Chromium/ Copper/Manganese/ Seleni /Zn 1 ml/ Total Parenteral Nutrition/Amino Acids/Dextrose/ Fat Emulsion Intravenous 1,920 ml @ 80 mls/hr TPN CONT IV Last administered on 04/24/17 22:40; Start 04/24/17 at 22:00; Stop 04/25/17 at 21:59; Status DC Diphenhydramine HCl (Benadryl) 25 mg PRN Q6HRS PRN PO ITCHING Last administered on 04/24/17 20:16; Start 04/24/17 at 13:45 Pantoprazole Sodium (Protonix) 40 mg DAILYAC PO Last administered on 08:13; Start 04/25/17 at 10:00 Hydrochlorothiazide (Hydrodiuril) 25 mg DAILY PO Last administered on 08:13; Start 04/25/17 at 09:00 Sodium Chloride 210 meq/Potassium Chloride 120 meq/ Potassium Acetate 20 meq/ Magnesium Sulfate 32 meq/ Multivitamins 10 ml/Chromium/ Copper/Manganese/ Seleni /Zn 1 ml/ Total Parenteral Nutrition/Amino Acids/Dextrose/ Fat Emulsion Intravenous 1,920 ml @ 80 mls/hr TPN CONT IV Last administered on 04/25/17 23:33; Start 04/25/17 at 22:00; Stop 04/26/17 at 08:17; Status DC Sodium Chloride 1,000 ml @ 80 mls/hr [id number] IV Last administered on 08:40; Start 04/26/17 at 08:15; Stop 04/26/17 at 22:08; Status DC Sodium Polystyrene Sulfonate (Kayexalate) 15 gm 1X ONCE PO Last administered on 04/26/17 08:52; Start 04/26/17 at 08:45; Stop 04/26/17 at 08:46; Status DC Sodium Chloride 210 meq/Potassium Chloride 80 meq/ Potassium Acetate 20 meq/ Magnesium Sulfate 32 meq/ Multivitamins 10 ml/Chromium/ Copper/Manganese/ Seleni /Zn 1 ml/ Potassium Phosphate 6.8 mmol/Total Parenteral Nutrition/Amino Acids/ Dextrose/ Fat Emulsion Intravenous 1,920 ml @ 80 mls/hr TPN CONT IV Last administered on 04/26/17 22:08; Start 04/26/17 at 22:00; Stop 04/27/17 at 21 :59 Amoxicillin/ Clavulanate Potassium (Augmentin 400-57mg/5ml Susp) 10 ml Q12HR PO ; Start 04/27/17 at 11:00 Hydralazine HCl (Apresoline) 25 mg TID PO ; Start 04/27/17 at 10:30 Isosorbide Dinitrate (Isordil) 20 mg TID PO ; Start 04/27/17 at 10:30 Active Scripts Active FENTANYL 25mcg/hr (Fentanyl) 1 Each Patch.td72 1 Patch TD Q72H 30 Days Amlodipine Besylate 5 Mg Tablet 10 Mg PO DAILY 30 Days Sertraline Hcl 50 Mg Tablet 50 Mg PO DAILY 30 Days Famotidine 20 Mg Tablet 20 Mg PO BID 60 Days Lidocaine 35.44 Gm Oint...g. 1 Sang TP BID Reported Zofran Odt (Ondansetron) 4 Mg Tab.rapdis 1 Tab SL PRN Q8HRS PRN Zinc Oxide 56.7 Gm Oint...g. 56.7 Gm TP PRN BID Dilaudid (Hydromorphone Hcl) 2 Mg Tablet 1 Tab PO PRN QID PRN Lorazepam 0.5 Mg Tablet 0.5 Mg PO Q6HRS PRN Vitals/I & O Vital Sign - Last 24 Hours 04/26/17 04/26/17 04/26/17 04/26/17 11:00 11:35 12:23 15:00 Temp 97.8 97.6 97.8 97.6 Pulse 81 74 Resp 18 18 B/P (MAP) 159/98 (118) 176/77 (110) Pulse Ox 98 99 O2 Delivery Room Air Room Air Room Air Room Air 04/26/17 04/26/17 04/26/17 04/26/17 17:05 17:05 18:59 20:00 Temp 97.8 97.8 Pulse 72 76 Resp 17 B/P (MAP) 175/69 (104) 156/96 (116) 137/83 (101) Pulse Ox 100 O2 Delivery Room Air Room Air 04/26/17 04/26/17 04/27/17 04/27/17 20:49 23:50 03:00 04:06 Temp 97.7 97.5 97.7 97.5 Pulse 67 80 Resp 17 16 B/P (MAP) 167/76 (106) 166/89 (114) Pulse Ox 100 98 O2 Delivery Room Air Room Air Room Air Room Air 04/27/17 04/27/17 04/27/17 04/27/17 04:36 07:18 07:36 08:13 Temp 97.6 97.6 Pulse 76 76 Resp 16 B/P (MAP) 175/92 (119) 175/92 Pulse Ox 100 O2 Delivery Room Air Room Air Room Air Intake and Output 04/26/17 04/26/17 04/27/17 15:00 23:00 07:00 Intake Total 400 ml 200 ml Output Total 300 ml Balance 100 ml 200 ml Nutrition Consultation Dietary Evaluation: Recommendations by RD: PPN/TPN Comments: continue home TPN regimen diet as tolerated Expected Outcomes/Goals: to continue to meet > 75% est nutrition needs via TPN Malnutrition Findings: Weight Status: Appropriate ENMA FINLEY MD Apr 27, 2017 10:44
[2017-04-27 11:00] VITALS: BP 165/83
[2017-04-27] MEDS: TPN PER PHARMACY MC PRN (12:53)
[2017-04-27 14:50] VITALS: BP 107/64
[2017-04-27 19:15] VITALS: BP 111/65
[2017-04-27] MEDS ORDERED: [UNRECOGNIZED DRUG - OTHER] IV SCH ×20 (22:00)
[2017-04-27] MEDS ORDERED: AMINO ACIDS IV SCH ×20 (22:00)
[2017-04-27] MEDS ORDERED: DEXTROSE 70% IV SCH ×20 (22:00)
[2017-04-27] MEDS ORDERED: TOTAL PARENTERAL NUTRITION IV SCH ×20 (22:00)
[2017-04-27] MEDS: ONDANSETRON PF 4 MG/2 ML VIAL. IV PRN (22:18)
[2017-04-27 23:15] VITALS: BP 148/81
[2017-04-27] MEDS: LORazepam 0.5 MG TABLET PO PRN (23:54)
[2017-04-28] VITALS (7 sets, daily range): BP systolic 122–165; BP diastolic 71–89
[2017-04-28] MEDS: HYDROmorphone 2 MG/ML VIAL IV PRN ×3 (05:53→18:31)
[2017-04-28 06:33] LABS: CALCIUM 8.6 mg/dL (8.5-10.1); CREATININE 0.7 mg/dL (0.6-1.0); GFR 102.6; POTASSIUM 5.1 mmol/L (3.5-5.1)
[2017-04-28 06:35] LABS: BASO # 0.1 x10^3/uL (0.0-0.2); BASO % 2 % (0-3); EOS % 13 % (0-3); HEMOGLOBIN 8.5 g/dL (12.0-15.5); LYMPH # 1.4 x10^3/uL (1.0-4.8); LYMPH % 34 % (24-48); MEAN CORPUSCULAR HEMOGLOBIN 24 pg (25-35); MEAN CORPUSCULAR HGB CONC 32 g/dL (31-37); MEAN CORPUSCULAR VOLUME 77 fL (79-100); MONO % 6 % (0-9); NEUT % 45 % (31-73); PLATELET COUNT 347 x10^3/uL (140-400); RED BLOOD COUNT 3.51 x10^6/uL (3.50-5.40); RED CELL DISTRIBUTION WIDTH 21.8 % (11.5-14.5)
[2017-04-28] MEDS: ZINC OXIDE 20% TOPICAL OINTMENT 28GM TUBE. TP SCH ×2 (08:02→21:00)
[2017-04-28] MEDS: LIDOCAINE 5% TOPICAL OINTMENT 35GM TUBE. TP SCH ×2 (08:02→21:00)
[2017-04-28] MEDS: PANTOPRAZOLE 40 MG TABLET.DR. PO SCH (08:03)
[2017-04-28] MEDS: SERTRALINE 50 MG TABLET. PO SCH (08:03)
[2017-04-28] MEDS: ISOSORBIDE DINITRATE 10 MG TABLET. PO SCH ×3 (08:03→21:19)
[2017-04-28] MEDS: hydroCHLOROthiazide 25 MG TABLET PO SCH (08:03)
[2017-04-28] MEDS: AMOXICILLIN/CLAV 400MG/57MG 5 ML ORAL.SUSP. PO SCH ×2 (08:03→21:21)
[2017-04-28] MEDS: hydrALAZINE 25 MG TABLET PO SCH ×3 (08:04→21:19)
--- NOTE | 2017-04-28 09:09 | PDOC ---
Infectious Disease Note Subjective Subjective Feeling well. At baseline Denies pruritus, rash or wheezing Swelling some better Denies N/V ROS ROS GEN: Denies fevers, chills, sweats HEENT: Denies blurred vision, sore throat CV: Denies chest pain RESP: Denies shortness of air, cough GI: Denies n/v/d NEURO: Denies confusion, dizziness MSK: Denies weakness, joint pain/swelling Vital Sign Vital Signs Vital Signs Date Time Temp Pulse Resp B/P (MAP) Pulse Ox O2 Delivery O2 Flow Rate FiO2 04/28/17 08:04 80 143/76 04/28/17 07:12 Room Air 04/28/17 07:00 97.5 18 97 97.5 Physical Exam PHYSICAL EXAM GENERAL: Propped up in bed, Looks well and getting ready to eat Oc/Op - clear LUNGS: Clear HEART: S1 and S2 ABD: Soft, NT, EC fistula EXT: trace to 1 pus edema, no cyanosis PHARMACIST AIDE: Alert, oriented x 3, no focal neurologic deficit SKIN: No rash Tunneled PICC. clean Labs Lab Laboratory Tests Test 04/28/17 06:05 White Blood Count 4.0 x10^3/uL (4.0-11.0) Red Blood Count 3.51 x10^6/uL (3.50-5.40) Hemoglobin 8.5 g/dL (12.0-15.5) Hematocrit 27.0 % (36.0-47.0) Mean Corpuscular Volume 77 fL (79-100) Mean Corpuscular Hemoglobin 24 pg (25-35) Mean Corpuscular Hemoglobin Concent 32 g/dL (31-37) Red Cell Distribution Width 21.8 % (11.5-14.5) Platelet Count 347 x10^3/uL (140-400) Neutrophils (%) (Auto) 45 % (31-73) Lymphocytes (%) (Auto) 34 % (24-48) Monocytes (%) (Auto) 6 % (0-9) Eosinophils (%) (Auto) 13 % (0-3) Basophils (%) (Auto) 2 % (0-3) Neutrophils # (Auto) 1.8 x10^3uL (1.8-7.7) Lymphocytes # (Auto) 1.4 x10^3/uL (1.0-4.8) Monocytes # (Auto) 0.2 x10^3/uL (0.0-1.1) Eosinophils # (Auto) 0.5 x10^3/uL (0.0-0.7) Basophils # (Auto) 0.1 x10^3/uL (0.0-0.2) Sodium Level 136 mmol/L (136-145) Potassium Level 5.1 mmol/L (3.5-5.1) Chloride Level 106 mmol/L (98-107) Carbon Dioxide Level 27 mmol/L (21-32) Anion Gap 3 (6-14) Blood Urea Nitrogen 15 mg/dL (7-20) Creatinine 0.7 mg/dL (0.6-1.0) Estimated GFR (Cockcroft-Gault) 102.6 Glucose Level 93 mg/dL (70-99) Calcium Level 8.6 mg/dL (8.5-10.1) Objective Assessment Leukopenia and eosinophilia Fevers and chills prior to admit, now resolved. Pyuria. E. coli in urine Irritant contact dermatitis of abdomen for an enterocutaneous fistula drainage. History of intravenous vancomycin allergy. Chronic total parenteral nutrition therapy. Enterocutaneous and enterovesical fistula. History of methicillin-resistant Staphylococcus aureus, Enterobacter and klebsiella line infections. History of E. coli and Enterobacter aerogenes, Enterococcus faecium ampR and Enterococcus faecalis in the urine. Anemia of chronic disease. Hypertension. Depression. Esophagitis. History of deep venous thrombosis in 2010. History of diverticulosis and peptic ulcer disease. Plan Plan of Care Cont Augmentin Elixir for 2 days Ok to d/c home from ID standpoint ABBY MOTT MD Apr 28, 2017 09:08
--- NOTE | 2017-04-28 09:52 | PDOC ---
PROGRESS NOTES Subjective Subjective feels well. blood pressure is better. labs reviewed. potassium 5.1 Objective Objective Vital Signs Date Time Temp Pulse Resp B/P (MAP) Pulse Ox O2 Delivery O2 Flow Rate FiO2 04/28/17 08:04 80 143/76 04/28/17 07:12 Room Air 04/28/17 07:00 97.5 18 97 97.5 Intake and Output 04/28/17 07:00 Intake Total 1380 ml Balance 1380 ml Intake Oral 1380 ml # Voids 4 Physical Exam Abdomen: Soft, Other (enterocutaneous fistula) Heart: Regular rate, Normal S1, Normal S2 Extremities: Other (2 plus edemea left leg) General: Alert HEENT: Atraumatic Lungs: Clear to auscultation Neuro: Normal speech Psych/Mental Status: Mental status NL Skin: No rashes Assessment Assessment Problems. Fever, although she is afebrile now. 2. e. coli uti in setting of enterovesical fistula. 3. Abdominal pain.due to adhesions 4. Enterocutaneous fistula. 5. Enterovesical fistula. 6. Hypokalemia.treated 7. Hypomagnesemia. treated 8. Severe protein-calorie malnutrition. 9. Hypertension. reflux esophagitis left leg edema Medical Problems: (1) Enterocutaneous fistula Status: Acute (2) Hypokalemia Status: Acute (3) Hypomagnesemia Status: Acute (4) Severe protein-calorie malnutrition Status: Acute (5) UTI (urinary tract infection) Status: Acute Plan Plan of Care venous doppler LLE continue hctz and isosorbide dinitrate and hydralazine lab tomorrow anticipate dismissal tomorrow. pharmacist to speak with home health pharmacy to make TPN in advance so it is ready tomorrow when she returns home Comment Review of Relevant I have reviewed the following items lucila (where applicable) has been applied. Labs Laboratory Tests Test 04/27/17 05:50 04/28/17 06:05 White Blood Count 4.4 x10^3/uL (4.0-11.0) 4.0 x10^3/uL (4.0-11.0) Red Blood Count 3.47 x10^6/uL (3.50-5.40) 3.51 x10^6/uL (3.50-5.40) Hemoglobin 8.4 g/dL (12.0-15.5) 8.5 g/dL (12.0-15.5) Hematocrit 27.0 % (36.0-47.0) 27.0 % (36.0-47.0) Mean Corpuscular Volume 78 fL (79-100) 77 fL (79-100) Mean Corpuscular Hemoglobin 24 pg (25-35) 24 pg (25-35) Mean Corpuscular Hemoglobin Concent 31 g/dL (31-37) 32 g/dL (31-37) Red Cell Distribution Width 21.7 % (11.5-14.5) 21.8 % (11.5-14.5) Platelet Count 325 x10^3/uL (140-400) 347 x10^3/uL (140-400) Neutrophils (%) (Auto) 46 % (31-73) 45 % (31-73) Lymphocytes (%) (Auto) 29 % (24-48) 34 % (24-48) Monocytes (%) (Auto) 7 % (0-9) 6 % (0-9) Eosinophils (%) (Auto) 16 % (0-3) 13 % (0-3) Basophils (%) (Auto) 2 % (0-3) 2 % (0-3) Neutrophils # (Auto) 2.0 x10^3uL (1.8-7.7) 1.8 x10^3uL (1.8-7.7) Lymphocytes # (Auto) 1.3 x10^3/uL (1.0-4.8) 1.4 x10^3/uL (1.0-4.8) Monocytes # (Auto) 0.3 x10^3/uL (0.0-1.1) 0.2 x10^3/uL (0.0-1.1) Eosinophils # (Auto) 0.7 x10^3/uL (0.0-0.7) 0.5 x10^3/uL (0.0-0.7) Basophils # (Auto) 0.1 x10^3/uL (0.0-0.2) 0.1 x10^3/uL (0.0-0.2) Sodium Level 136 mmol/L (136-145) 136 mmol/L (136-145) Potassium Level 4.9 mmol/L (3.5-5.1) 5.1 mmol/L (3.5-5.1) Chloride Level 105 mmol/L (98-107) 106 mmol/L (98-107) Carbon Dioxide Level 26 mmol/L (21-32) 27 mmol/L (21-32) Anion Gap 5 (6-14) 3 (6-14) Blood Urea Nitrogen 13 mg/dL (7-20) 15 mg/dL (7-20) Creatinine 0.8 mg/dL (0.6-1.0) 0.7 mg/dL (0.6-1.0) Estimated GFR (Cockcroft-Gault) 87.9 102.6 Glucose Level 119 mg/dL (70-99) 93 mg/dL (70-99) Calcium Level 8.5 mg/dL (8.5-10.1) 8.6 mg/dL (8.5-10.1) Magnesium Level 2.0 mg/dL (1.8-2.4) Laboratory Tests Test 04/28/17 06:05 White Blood Count 4.0 x10^3/uL (4.0-11.0) Red Blood Count 3.51 x10^6/uL (3.50-5.40) Hemoglobin 8.5 g/dL (12.0-15.5) Hematocrit 27.0 % (36.0-47.0) Mean Corpuscular Volume 77 fL (79-100) Mean Corpuscular Hemoglobin 24 pg (25-35) Mean Corpuscular Hemoglobin Concent 32 g/dL (31-37) Red Cell Distribution Width 21.8 % (11.5-14.5) Platelet Count 347 x10^3/uL (140-400) Neutrophils (%) (Auto) 45 % (31-73) Lymphocytes (%) (Auto) 34 % (24-48) Monocytes (%) (Auto) 6 % (0-9) Eosinophils (%) (Auto) 13 % (0-3) Basophils (%) (Auto) 2 % (0-3) Neutrophils # (Auto) 1.8 x10^3uL (1.8-7.7) Lymphocytes # (Auto) 1.4 x10^3/uL (1.0-4.8) Monocytes # (Auto) 0.2 x10^3/uL (0.0-1.1) Eosinophils # (Auto) 0.5 x10^3/uL (0.0-0.7) Basophils # (Auto) 0.1 x10^3/uL (0.0-0.2) Sodium Level 136 mmol/L (136-145) Potassium Level 5.1 mmol/L (3.5-5.1) Chloride Level 106 mmol/L (98-107) Carbon Dioxide Level 27 mmol/L (21-32) Anion Gap 3 (6-14) Blood Urea Nitrogen 15 mg/dL (7-20) Creatinine 0.7 mg/dL (0.6-1.0) Estimated GFR (Cockcroft-Gault) 102.6 Glucose Level 93 mg/dL (70-99) Calcium Level 8.6 mg/dL (8.5-10.1) Microbiology 04/23/17 Blood Culture - Final, Complete NO GROWTH AFTER 5 DAYS 04/22/17 Urine Culture - Final, Complete 04/22/17 Urine Culture Result 1 (ROYA) - Final, Complete 04/22/17 Antimicrobic Susceptibility - Final, Complete Medications Current Medications Fentanyl Citrate (Fentanyl 2ml Vial) 50 mcg PRN Q15MIN PRN IV PAIN GREATER THAN 3/10 Last administered on 04/22/17 20:37; Start 04/22/17 at 17:15; Stop 04/23/17 at 17:14; Status DC Sodium Chloride 1,000 ml @ 1,000 mls/hr Q1H IV Last administered on 04/22/17 17:29; Start 04/22/17 at 17:06; Stop 04/22/17 at 18:05; Status DC Ondansetron HCl (Zofran) 4 mg 1X ONCE IV Last administered on 04/22/17 17:28 ; Start 04/22/17 at 17:15; Stop 04/22/17 at 17:16; Status DC Potassium Chloride 50 ml @ 50 mls/hr 1X ONCE IV Last administered on 19:17; Start 04/22/17 at 18:00; Stop 04/22/17 at 18:59; Status DC Lidocaine (Xylocaine) 1 sang BID TP Last administered on 04/28/17 08:02; Start 04/22/17 at 21:00 Zinc Oxide 1 sang BID TP Last administered on 04/28/17 08:02; Start 04/22/17 at 21:00 Linezolid 300 ml @ 300 mls/hr Q12HR IV Last administered on 04/26/17 08:42; Start 04/22/17 at 21:00; Stop 04/26/17 at 10:54; Status DC Piperacillin Sod/ Tazobactam Sod 3.375 gm/Dextrose 50 ml @ 100 mls/hr Q6HRS IV ; Start 04/23/17 at 00:00; Status UNV Zolpidem Tartrate (Ambien) 5 mg PRN QHS PRN PO INSOMNIA, MAY REPEAT IN 1HR; Start 04/22/17 at 18:15 Potassium Chloride/Dextrose/ Sod Cl 1,000 ml @ 80 mls/hr 1X ONCE IV Last administered on 04/22/17 23:55; Start 04/22/17 at 18:15; Stop 04/23/17 at 06: 44; Status DC Hydromorphone HCl (Dilaudid) 2 mg PRN Q6HRS PRN PO PAIN; Start 04/22/17 at 18: 15; Stop 04/26/17 at 12:43; Status DC Ondansetron HCl (Zofran) 4 mg PRN Q8HRS PRN IV NAUSEA/VOMITING Last administered on 04/23/17 15:49; Start 04/22/17 at 18:15; Stop 04/23/17 at 18: 14; Status DC Info 1 each PRN DAILY PRN MC SEE COMMENTS Last administered on 04/27/17 12:53 ; Start 04/22/17 at 18:30 Magnesium Sulfate/ Dextrose 50 ml @ 25 mls/hr 1X ONCE IV Last administered on 04/22/17 19:17; Start 04/22/17 at 18:30; Stop 04/22/17 at 20:29; Status DC Potassium Chloride 50 ml @ 50 mls/hr Q1H IV Last administered on 04/22/17 23: 05; Start 04/22/17 at 18:30; Stop 04/22/17 at 21:29; Status DC Magnesium Sulfate/ Dextrose 50 ml @ 25 mls/hr 1X ONCE IV Last administered on 04/22/17 21:57; Start 04/22/17 at 20:30; Stop 04/22/17 at 22:29; Status DC Piperacillin Sod/ Tazobactam Sod (Zosyn) 3.375 gm Q6HRS IVP Last administered on 04/27/17 05:44; Start 04/22/17 at 18:30; Stop 04/27/17 at 10:05; Status DC Lorazepam (Ativan) 0.5 mg PRN Q6HRS PRN PO ANXIETY Last administered on 21:05; Start 04/22/17 at 22:15; Stop 04/26/17 at 12:43; Status DC Hydromorphone HCl (Dilaudid) 2 mg PRN Q4HRS PRN IV SEVERE PAIN Last administered on 04/23/17 06:18; Start 04/22/17 at 22:15; Stop 04/23/17 at 10: 15; Status DC Hydromorphone HCl (Dilaudid) 4 mg PRN Q6HRS PRN IV SEVERE PAIN Last administered on 04/28/17 05:53; Start 04/23/17 at 10:15 Acetaminophen (Tylenol) 650 mg PRN Q6HRS PRN PO MILD PAIN / TEMP; Start at 10:15 Fentanyl (Duragesic 25mcg/ Hr Patch) 1 patch Q3DAYS TD Last administered on 08:40; Start 04/23/17 at 10:30 Famotidine (Pepcid) 20 mg BID PO Last administered on 04/25/17 08:01; Start 04/23/17 at 11:00; Stop 04/25/17 at 08:38; Status DC Lorazepam (Ativan) 0.5 mg PRN Q6HRS PRN PO ANXIETY / AGITATION Last administered on 04/27/17 23:54; Start 04/23/17 at 10:15 Sertraline HCl (Zoloft) 50 mg DAILY PO Last administered on 04/28/17 08:03; Start 04/23/17 at 11:00 Ondansetron HCl (Zofran) 4 mg PRN Q6HRS PRN IV NAUSEA/VOMITING Last administered on 04/27/17 22:18; Start 04/23/17 at 10:15 Amlodipine Besylate (Norvasc) 10 mg DAILY PO Last administered on 04/27/17 08 :13; Start 04/23/17 at 11:00; Stop 04/27/17 at 10:10; Status DC Sodium Chloride 210 meq/Potassium Chloride 120 meq/ Magnesium Sulfate 32 meq/ Multivitamins 10 ml/Chromium/ Copper/Manganese/ Seleni/Zn 1 ml/ Total Parenteral Nutrition/Amino Acids/Dextrose/ Fat Emulsion Intravenous 1,920 ml @ 80 mls/hr TPN CONT IV ; Start 04/23/17 at 22:00; Stop 04/24/17 at 21:59; Status Cancel Magnesium Sulfate/ Dextrose 50 ml @ 25 mls/hr 1X ONCE IV Last administered on 04/23/17 15:49; Start 04/23/17 at 13:00; Stop 04/23/17 at 14:59; Status DC Sodium Chloride 210 meq/Potassium Chloride 120 meq/ Potassium Acetate 20 meq/ Magnesium Sulfate 32 meq/ Multivitamins 10 ml/Chromium/ Copper/Manganese/ Seleni /Zn 1 ml/ Total Parenteral Nutrition/Amino Acids/Dextrose/ Fat Emulsion Intravenous 1,920 ml @ 80 mls/hr TPN CONT IV Last administered on 04/23/17 20:27; Start 04/23/17 at 22:00; Stop 04/24/17 at 21:59; Status DC Alteplase, Recombinant (Cathflo) 2 mg 1X ONCE INT CAT Last administered on 10:00; Start 04/24/17 at 10:00; Stop 04/24/17 at 10:01; Status DC Sodium Chloride 210 meq/Potassium Chloride 120 meq/ Potassium Acetate 20 meq/ Magnesium Sulfate 32 meq/ Multivitamins 10 ml/Chromium/ Copper/Manganese/ Seleni /Zn 1 ml/ Total Parenteral Nutrition/Amino Acids/Dextrose/ Fat Emulsion Intravenous 1,920 ml @ 80 mls/hr TPN CONT IV Last administered on 04/24/17 22:40; Start 04/24/17 at 22:00; Stop 04/25/17 at 21:59; Status DC Diphenhydramine HCl (Benadryl) 25 mg PRN Q6HRS PRN PO ITCHING Last administered on 04/24/17 20:16; Start 04/24/17 at 13:45 Pantoprazole Sodium (Protonix) 40 mg DAILYAC PO Last administered on 08:03; Start 04/25/17 at 10:00 Hydrochlorothiazide (Hydrodiuril) 25 mg DAILY PO Last administered on 08:03; Start 04/25/17 at 09:00 Sodium Chloride 210 meq/Potassium Chloride 120 meq/ Potassium Acetate 20 meq/ Magnesium Sulfate 32 meq/ Multivitamins 10 ml/Chromium/ Copper/Manganese/ Seleni /Zn 1 ml/ Total Parenteral Nutrition/Amino Acids/Dextrose/ Fat Emulsion Intravenous 1,920 ml @ 80 mls/hr TPN CONT IV Last administered on 04/25/17 23:33; Start 04/25/17 at 22:00; Stop 04/26/17 at 08:17; Status DC Sodium Chloride 1,000 ml @ 80 mls/hr [id number] IV Last administered on 08:40; Start 04/26/17 at 08:15; Stop 04/26/17 at 22:08; Status DC Sodium Polystyrene Sulfonate (Kayexalate) 15 gm 1X ONCE PO Last administered on 04/26/17 08:52; Start 04/26/17 at 08:45; Stop 04/26/17 at 08:46; Status DC Sodium Chloride 210 meq/Potassium Chloride 80 meq/ Potassium Acetate 20 meq/ Magnesium Sulfate 32 meq/ Multivitamins 10 ml/Chromium/ Copper/Manganese/ Seleni /Zn 1 ml/ Potassium Phosphate 6.8 mmol/Total Parenteral Nutrition/Amino Acids/ Dextrose/ Fat Emulsion Intravenous 1,920 ml @ 80 mls/hr TPN CONT IV Last administered on 04/26/17 22:08; Start 04/26/17 at 22:00; Stop 04/27/17 at 21 :59; Status DC Amoxicillin/ Clavulanate Potassium (Augmentin 400-57mg/5ml Susp) 10 ml Q12HR PO Last administered on 04/28/17 08:03; Start 04/27/17 at 11:00 Hydralazine HCl (Apresoline) 25 mg TID PO Last administered on 04/28/17 08:04 ; Start 04/27/17 at 10:30 Isosorbide Dinitrate (Isordil) 20 mg TID PO Last administered on 04/28/17 08: 03; Start 04/27/17 at 10:30 Sodium Chloride 210 meq/Potassium Chloride 80 meq/ Potassium Acetate 20 meq/ Magnesium Sulfate 32 meq/ Multivitamins 10 ml/Chromium/ Copper/Manganese/ Seleni /Zn 1 ml/ Potassium Phosphate 6.8 mmol/Total Parenteral Nutrition/Amino Acids/ Dextrose/ Fat Emulsion Intravenous 1,920 ml @ 80 mls/hr TPN CONT IV Last administered on 04/27/17t 22:18; Start 04/27/17 at 22:00; Stop 04/28/17 at 21 :59 Active Scripts Active FENTANYL 25mcg/hr (Fentanyl) 1 Each Patch.td72 1 Patch TD Q72H 30 Days Amlodipine Besylate 5 Mg Tablet 10 Mg PO DAILY 30 Days Sertraline Hcl 50 Mg Tablet 50 Mg PO DAILY 30 Days Famotidine 20 Mg Tablet 20 Mg PO BID 60 Days Lidocaine 35.44 Gm Oint...g. 1 Sang TP BID Reported Zofran Odt (Ondansetron) 4 Mg Tab.rapdis 1 Tab SL PRN Q8HRS PRN Zinc Oxide 56.7 Gm Oint...g. 56.7 Gm TP PRN BID Dilaudid (Hydromorphone Hcl) 2 Mg Tablet 1 Tab PO PRN QID PRN Lorazepam 0.5 Mg Tablet 0.5 Mg PO Q6HRS PRN Vitals/I & O Vital Sign - Last 24 Hours 04/27/17 04/27/17 04/27/17 04/27/17 10:39 10:40 10:41 11:00 Temp 98.1 98.1 Pulse 76 76 88 Resp 16 B/P (MAP) 175/92 175/92 165/83 (110) Pulse Ox 100 O2 Delivery Room Air Room Air 04/27/17 04/27/17 04/27/17 04/27/17 13:09 13:09 14:50 17:09 Temp 97.7 97.7 Pulse 88 88 99 Resp 18 B/P (MAP) 165/83 165/83 107/64 (78) Pulse Ox 98 O2 Delivery Room Air Room Air 04/27/17 04/27/17 04/27/17 04/27/17 19:15 20:00 21:00 22:19 Temp 98.2 98.2 Pulse 92 92 92 Resp 16 B/P (MAP) 111/65 (80) 111/65 111/65 Pulse Ox 95 O2 Delivery Room Air Room Air 04/27/17 04/27/17 04/28/17 04/28/17 23:15 23:55 03:15 05:53 Temp 98.0 97.6 98.0 97.6 Pulse 79 84 Resp 16 16 B/P (MAP) 148/81 (103) 165/89 (114) Pulse Ox 100 94 O2 Delivery Room Air Room Air Room Air Room Air 04/28/17 04/28/17 04/28/17 04/28/17 06:23 07:00 07:12 08:03 Temp 97.5 97.5 Pulse 80 80 Resp 18 B/P (MAP) 143/76 (98) 143/76 Pulse Ox 97 O2 Delivery Room Air Room Air Room Air 04/28/17 08:04 Pulse 80 B/P (MAP) 143/76 Intake and Output 04/27/17 04/27/17 04/28/17 15:00 23:00 07:00 Intake Total 800 ml 580 ml Balance 800 ml 580 ml Nutrition Consultation Dietary Evaluation: Recommendations by RD: PPN/TPN Comments: continue home TPN regimen diet as tolerated Expected Outcomes/Goals: to continue to meet > 75% est nutrition needs via TPN Malnutrition Findings: Weight Status: Appropriate BENITA LUTZ MD Apr 28, 2017 09:52
--- NOTE | 2017-04-28 11:47 | RAD ---
Left lower extremity venous ultrasound, 04/28/2017 : History: Left leg swelling Duplex evaluation including grayscale, color flow and spectral Doppler analysis was performed. The femoral and popliteal veins show no filling defects to suggest DVT. The visualized calf veins are unremarkable. IMPRESSION: There is no sonographic evidence of deep vein thrombosis in the left lower extremity
[2017-04-28] MEDS: TPN PER PHARMACY MC PRN (13:46)
--- NOTE | 2017-04-28 16:59 | PDOC ---
PROGRESS NOTES Subjective Subjective HPI - Eosinophilia. ROS - no fever Objective Objective Vital Signs Date Time Temp Pulse Resp B/P (MAP) Pulse Ox O2 Delivery O2 Flow Rate FiO2 04/28/17 15:00 98.1 89 18 122/78 (93) 99 Room Air 98.1 Intake and Output 04/28/17 07:00 Intake Total 1380 ml Balance 1380 ml Intake Oral 1380 ml # Voids 4 Physical Exam Heart: Normal S1, Normal S2 General: Alert, Oriented X3, No acute distress Lungs: Clear to auscultation Neuro: Normal speech Assessment Assessment Problems Medical Problems: (1) Enterocutaneous fistula Status: Acute (2) Hypokalemia Status: Acute (3) Hypomagnesemia Status: Acute (4) Severe protein-calorie malnutrition Status: Acute (5) UTI (urinary tract infection) Status: Acute IMPRESSION AND PLAN: 1. Eosinophilia. The patient has had evidence of relative eosinophilia, but the absolute eosinophil count has normalized. This is suggestive of a reactive eosinophilia, could be from underlying infection. However, since the eosinophil count is now normal and she only has mild relative eosinophil elevation, this would be clinically insignificant. I do not suspect any primary hematologic disorder. I would continue to monitor eosinophil counts. I would not recommend any further workup or changes to her current ongoing management. Eos today 13%. Monitor. I d/w DR Almanza. 2. Urinary tract infection. Continue management per Infectious Diseases. Comment Review of Relevant I have reviewed the following items lucila (where applicable) has been applied. Labs Laboratory Tests Test 04/27/17 05:50 04/28/17 06:05 White Blood Count 4.4 x10^3/uL (4.0-11.0) 4.0 x10^3/uL (4.0-11.0) Red Blood Count 3.47 x10^6/uL (3.50-5.40) 3.51 x10^6/uL (3.50-5.40) Hemoglobin 8.4 g/dL (12.0-15.5) 8.5 g/dL (12.0-15.5) Hematocrit 27.0 % (36.0-47.0) 27.0 % (36.0-47.0) Mean Corpuscular Volume 78 fL (79-100) 77 fL (79-100) Mean Corpuscular Hemoglobin 24 pg (25-35) 24 pg (25-35) Mean Corpuscular Hemoglobin Concent 31 g/dL (31-37) 32 g/dL (31-37) Red Cell Distribution Width 21.7 % (11.5-14.5) 21.8 % (11.5-14.5) Platelet Count 325 x10^3/uL (140-400) 347 x10^3/uL (140-400) Neutrophils (%) (Auto) 46 % (31-73) 45 % (31-73) Lymphocytes (%) (Auto) 29 % (24-48) 34 % (24-48) Monocytes (%) (Auto) 7 % (0-9) 6 % (0-9) Eosinophils (%) (Auto) 16 % (0-3) 13 % (0-3) Basophils (%) (Auto) 2 % (0-3) 2 % (0-3) Neutrophils # (Auto) 2.0 x10^3uL (1.8-7.7) 1.8 x10^3uL (1.8-7.7) Lymphocytes # (Auto) 1.3 x10^3/uL (1.0-4.8) 1.4 x10^3/uL (1.0-4.8) Monocytes # (Auto) 0.3 x10^3/uL (0.0-1.1) 0.2 x10^3/uL (0.0-1.1) Eosinophils # (Auto) 0.7 x10^3/uL (0.0-0.7) 0.5 x10^3/uL (0.0-0.7) Basophils # (Auto) 0.1 x10^3/uL (0.0-0.2) 0.1 x10^3/uL (0.0-0.2) Sodium Level 136 mmol/L (136-145) 136 mmol/L (136-145) Potassium Level 4.9 mmol/L (3.5-5.1) 5.1 mmol/L (3.5-5.1) Chloride Level 105 mmol/L (98-107) 106 mmol/L (98-107) Carbon Dioxide Level 26 mmol/L (21-32) 27 mmol/L (21-32) Anion Gap 5 (6-14) 3 (6-14) Blood Urea Nitrogen 13 mg/dL (7-20) 15 mg/dL (7-20) Creatinine 0.8 mg/dL (0.6-1.0) 0.7 mg/dL (0.6-1.0) Estimated GFR (Cockcroft-Gault) 87.9 102.6 Glucose Level 119 mg/dL (70-99) 93 mg/dL (70-99) Calcium Level 8.5 mg/dL (8.5-10.1) 8.6 mg/dL (8.5-10.1) Magnesium Level 2.0 mg/dL (1.8-2.4) Laboratory Tests Test 04/28/17 06:05 White Blood Count 4.0 x10^3/uL (4.0-11.0) Red Blood Count 3.51 x10^6/uL (3.50-5.40) Hemoglobin 8.5 g/dL (12.0-15.5) Hematocrit 27.0 % (36.0-47.0) Mean Corpuscular Volume 77 fL (79-100) Mean Corpuscular Hemoglobin 24 pg (25-35) Mean Corpuscular Hemoglobin Concent 32 g/dL (31-37) Red Cell Distribution Width 21.8 % (11.5-14.5) Platelet Count 347 x10^3/uL (140-400) Neutrophils (%) (Auto) 45 % (31-73) Lymphocytes (%) (Auto) 34 % (24-48) Monocytes (%) (Auto) 6 % (0-9) Eosinophils (%) (Auto) 13 % (0-3) Basophils (%) (Auto) 2 % (0-3) Neutrophils # (Auto) 1.8 x10^3uL (1.8-7.7) Lymphocytes # (Auto) 1.4 x10^3/uL (1.0-4.8) Monocytes # (Auto) 0.2 x10^3/uL (0.0-1.1) Eosinophils # (Auto) 0.5 x10^3/uL (0.0-0.7) Basophils # (Auto) 0.1 x10^3/uL (0.0-0.2) Sodium Level 136 mmol/L (136-145) Potassium Level 5.1 mmol/L (3.5-5.1) Chloride Level 106 mmol/L (98-107) Carbon Dioxide Level 27 mmol/L (21-32) Anion Gap 3 (6-14) Blood Urea Nitrogen 15 mg/dL (7-20) Creatinine 0.7 mg/dL (0.6-1.0) Estimated GFR (Cockcroft-Gault) 102.6 Glucose Level 93 mg/dL (70-99) Calcium Level 8.6 mg/dL (8.5-10.1) Microbiology 04/23/17 Blood Culture - Final, Complete NO GROWTH AFTER 5 DAYS 04/22/17 Urine Culture - Final, Complete 04/22/17 Urine Culture Result 1 (ROYA) - Final, Complete 04/22/17 Antimicrobic Susceptibility - Final, Complete Medications Current Medications Fentanyl Citrate (Fentanyl 2ml Vial) 50 mcg PRN Q15MIN PRN IV PAIN GREATER THAN 3/10 Last administered on 04/22/17 20:37; Start 04/22/17 at 17:15; Stop 04/23/17 at 17:14; Status DC Sodium Chloride 1,000 ml @ 1,000 mls/hr Q1H IV Last administered on 04/22/17 17:29; Start 04/22/17 at 17:06; Stop 04/22/17 at 18:05; Status DC Ondansetron HCl (Zofran) 4 mg 1X ONCE IV Last administered on 04/22/17 17:28 ; Start 04/22/17 at 17:15; Stop 04/22/17 at 17:16; Status DC Potassium Chloride 50 ml @ 50 mls/hr 1X ONCE IV Last administered on 19:17; Start 04/22/17 at 18:00; Stop 04/22/17 at 18:59; Status DC Lidocaine (Xylocaine) 1 sang BID TP Last administered on 04/28/17 08:02; Start 04/22/17 at 21:00 Zinc Oxide 1 sang BID TP Last administered on 04/28/17 08:02; Start 04/22/17 at 21:00 Linezolid 300 ml @ 300 mls/hr Q12HR IV Last administered on 04/26/17 08:42; Start 04/22/17 at 21:00; Stop 04/26/17 at 10:54; Status DC Piperacillin Sod/ Tazobactam Sod 3.375 gm/Dextrose 50 ml @ 100 mls/hr Q6HRS IV ; Start 04/23/17 at 00:00; Status UNV Zolpidem Tartrate (Ambien) 5 mg PRN QHS PRN PO INSOMNIA, MAY REPEAT IN 1HR; Start 04/22/17 at 18:15 Potassium Chloride/Dextrose/ Sod Cl 1,000 ml @ 80 mls/hr 1X ONCE IV Last administered on 04/22/17 23:55; Start 04/22/17 at 18:15; Stop 04/23/17 at 06: 44; Status DC Hydromorphone HCl (Dilaudid) 2 mg PRN Q6HRS PRN PO PAIN; Start 04/22/17 at 18: 15; Stop 04/26/17 at 12:43; Status DC Ondansetron HCl (Zofran) 4 mg PRN Q8HRS PRN IV NAUSEA/VOMITING Last administered on 04/23/17 15:49; Start 04/22/17 at 18:15; Stop 04/23/17 at 18: 14; Status DC Info 1 each PRN DAILY PRN MC SEE COMMENTS Last administered on 04/28/17 13:46 ; Start 04/22/17 at 18:30 Magnesium Sulfate/ Dextrose 50 ml @ 25 mls/hr 1X ONCE IV Last administered on 04/22/17 19:17; Start 04/22/17 at 18:30; Stop 04/22/17 at 20:29; Status DC Potassium Chloride 50 ml @ 50 mls/hr Q1H IV Last administered on 04/22/17 23: 05; Start 04/22/17 at 18:30; Stop 04/22/17 at 21:29; Status DC Magnesium Sulfate/ Dextrose 50 ml @ 25 mls/hr 1X ONCE IV Last administered on 04/22/17 21:57; Start 04/22/17 at 20:30; Stop 04/22/17 at 22:29; Status DC Piperacillin Sod/ Tazobactam Sod (Zosyn) 3.375 gm Q6HRS IVP Last administered on 04/27/17 05:44; Start 04/22/17 at 18:30; Stop 04/27/17 at 10:05; Status DC Lorazepam (Ativan) 0.5 mg PRN Q6HRS PRN PO ANXIETY Last administered on 21:05; Start 04/22/17 at 22:15; Stop 04/26/17 at 12:43; Status DC Hydromorphone HCl (Dilaudid) 2 mg PRN Q4HRS PRN IV SEVERE PAIN Last administered on 04/23/17 06:18; Start 04/22/17 at 22:15; Stop 04/23/17 at 10: 15; Status DC Hydromorphone HCl (Dilaudid) 4 mg PRN Q6HRS PRN IV SEVERE PAIN Last administered on 04/28/17 11:28; Start 04/23/17 at 10:15 Acetaminophen (Tylenol) 650 mg PRN Q6HRS PRN PO MILD PAIN / TEMP; Start at 10:15 Fentanyl (Duragesic 25mcg/ Hr Patch) 1 patch Q3DAYS TD Last administered on 08:40; Start 04/23/17 at 10:30 Famotidine (Pepcid) 20 mg BID PO Last administered on 04/25/17 08:01; Start 04/23/17 at 11:00; Stop 04/25/17 at 08:38; Status DC Lorazepam (Ativan) 0.5 mg PRN Q6HRS PRN PO ANXIETY / AGITATION Last administered on 04/27/17 23:54; Start 04/23/17 at 10:15 Sertraline HCl (Zoloft) 50 mg DAILY PO Last administered on 04/28/17 08:03; Start 04/23/17 at 11:00 Ondansetron HCl (Zofran) 4 mg PRN Q6HRS PRN IV NAUSEA/VOMITING Last administered on 04/27/17 22:18; Start 04/23/17 at 10:15 Amlodipine Besylate (Norvasc) 10 mg DAILY PO Last administered on 04/27/17 08 :13; Start 04/23/17 at 11:00; Stop 04/27/17 at 10:10; Status DC Sodium Chloride 210 meq/Potassium Chloride 120 meq/ Magnesium Sulfate 32 meq/ Multivitamins 10 ml/Chromium/ Copper/Manganese/ Seleni/Zn 1 ml/ Total Parenteral Nutrition/Amino Acids/Dextrose/ Fat Emulsion Intravenous 1,920 ml @ 80 mls/hr TPN CONT IV ; Start 04/23/17 at 22:00; Stop 04/24/17 at 21:59; Status Cancel Magnesium Sulfate/ Dextrose 50 ml @ 25 mls/hr 1X ONCE IV Last administered on 04/23/17 15:49; Start 04/23/17 at 13:00; Stop 04/23/17 at 14:59; Status DC Sodium Chloride 210 meq/Potassium Chloride 120 meq/ Potassium Acetate 20 meq/ Magnesium Sulfate 32 meq/ Multivitamins 10 ml/Chromium/ Copper/Manganese/ Seleni /Zn 1 ml/ Total Parenteral Nutrition/Amino Acids/Dextrose/ Fat Emulsion Intravenous 1,920 ml @ 80 mls/hr TPN CONT IV Last administered on 04/23/17 20:27; Start 04/23/17 at 22:00; Stop 04/24/17 at 21:59; Status DC Alteplase, Recombinant (Cathflo) 2 mg 1X ONCE INT CAT Last administered on 10:00; Start 04/24/17 at 10:00; Stop 04/24/17 at 10:01; Status DC Sodium Chloride 210 meq/Potassium Chloride 120 meq/ Potassium Acetate 20 meq/ Magnesium Sulfate 32 meq/ Multivitamins 10 ml/Chromium/ Copper/Manganese/ Seleni /Zn 1 ml/ Total Parenteral Nutrition/Amino Acids/Dextrose/ Fat Emulsion Intravenous 1,920 ml @ 80 mls/hr TPN CONT IV Last administered on 04/24/17 22:40; Start 04/24/17 at 22:00; Stop 04/25/17 at 21:59; Status DC Diphenhydramine HCl (Benadryl) 25 mg PRN Q6HRS PRN PO ITCHING Last administered on 04/24/17 20:16; Start 04/24/17 at 13:45 Pantoprazole Sodium (Protonix) 40 mg DAILYAC PO Last administered on 08:03; Start 04/25/17 at 10:00 Hydrochlorothiazide (Hydrodiuril) 25 mg DAILY PO Last administered on 08:03; Start 04/25/17 at 09:00 Sodium Chloride 210 meq/Potassium Chloride 120 meq/ Potassium Acetate 20 meq/ Magnesium Sulfate 32 meq/ Multivitamins 10 ml/Chromium/ Copper/Manganese/ Seleni /Zn 1 ml/ Total Parenteral Nutrition/Amino Acids/Dextrose/ Fat Emulsion Intravenous 1,920 ml @ 80 mls/hr TPN CONT IV Last administered on 04/25/17 23:33; Start 04/25/17 at 22:00; Stop 04/26/17 at 08:17; Status DC Sodium Chloride 1,000 ml @ 80 mls/hr [id number] IV Last administered on 08:40; Start 04/26/17 at 08:15; Stop 04/26/17 at 22:08; Status DC Sodium Polystyrene Sulfonate (Kayexalate) 15 gm 1X ONCE PO Last administered on 04/26/17 08:52; Start 04/26/17 at 08:45; Stop 04/26/17 at 08:46; Status DC Sodium Chloride 210 meq/Potassium Chloride 80 meq/ Potassium Acetate 20 meq/ Magnesium Sulfate 32 meq/ Multivitamins 10 ml/Chromium/ Copper/Manganese/ Seleni /Zn 1 ml/ Potassium Phosphate 6.8 mmol/Total Parenteral Nutrition/Amino Acids/ Dextrose/ Fat Emulsion Intravenous 1,920 ml @ 80 mls/hr TPN CONT IV Last administered on 04/26/17 22:08; Start 04/26/17 at 22:00; Stop 04/27/17 at 21 :59; Status DC Amoxicillin/ Clavulanate Potassium (Augmentin 400-57mg/5ml Susp) 10 ml Q12HR PO Last administered on 04/28/17 08:03; Start 04/27/17 at 11:00 Hydralazine HCl (Apresoline) 25 mg TID PO Last administered on 04/28/17 13:04 ; Start 04/27/17 at 10:30 Isosorbide Dinitrate (Isordil) 20 mg TID PO Last administered on 04/28/17 13: 04; Start 04/27/17 at 10:30 Sodium Chloride 210 meq/Potassium Chloride 80 meq/ Potassium Acetate 20 meq/ Magnesium Sulfate 32 meq/ Multivitamins 10 ml/Chromium/ Copper/Manganese/ Seleni /Zn 1 ml/ Potassium Phosphate 6.8 mmol/Total Parenteral Nutrition/Amino Acids/ Dextrose/ Fat Emulsion Intravenous 1,920 ml @ 80 mls/hr TPN CONT IV Last administered on 04/27/17t 22:18; Start 04/27/17 at 22:00; Stop 04/28/17 at 09 :54; Status DC Sodium Chloride 210 meq/Potassium Chloride 80 meq/ Potassium Acetate 20 meq/ Magnesium Sulfate 32 meq/ Multivitamins 10 ml/Chromium/ Copper/Manganese/ Seleni /Zn 1 ml/ Potassium Phosphate 6.8 mmol/Total Parenteral Nutrition/Amino Acids/ Dextrose/ Fat Emulsion Intravenous 1,920 ml @ 80 mls/hr TPN CONT IV ; Start 04/27/17 at 22:00; Stop 04/28/17 at 21:59 Sodium Chloride 210 meq/Potassium Chloride 60 meq/ Potassium Acetate 20 meq/ Magnesium Sulfate 32 meq/ Multivitamins 10 ml/Chromium/ Copper/Manganese/ Seleni /Zn 1 ml/ Potassium Phosphate 8 mmol/ Total Parenteral Nutrition/Amino Acids/ Dextrose/ Fat Emulsion Intravenous 1,920 ml @ 80 mls/hr TPN CONT IV ; Start 04/28/17 at 22:00; Stop 04/28/17 at 22:00; Status DC Sodium Chloride 210 meq/Potassium Chloride 60 meq/ Potassium Acetate 20 meq/ Magnesium Sulfate 32 meq/ Multivitamins 10 ml/Chromium/ Copper/Manganese/ Seleni /Zn 1 ml/ Potassium Phosphate 6.8 mmol/Total Parenteral Nutrition/Amino Acids/ Dextrose/ Fat Emulsion Intravenous 1,920 ml @ 80 mls/hr TPN CONT IV ; Start 04/28/17 at 22:00; Stop 04/29/17 at 21:59 Active Scripts Active FENTANYL 25mcg/hr (Fentanyl) 1 Each Patch.td72 1 Patch TD Q72H 30 Days Amlodipine Besylate 5 Mg Tablet 10 Mg PO DAILY 30 Days Sertraline Hcl 50 Mg Tablet 50 Mg PO DAILY 30 Days Famotidine 20 Mg Tablet 20 Mg PO BID 60 Days Lidocaine 35.44 Gm Oint...g. 1 Sang TP BID Reported Zofran Odt (Ondansetron) 4 Mg Tab.rapdis 1 Tab SL PRN Q8HRS PRN Zinc Oxide 56.7 Gm Oint...g. 56.7 Gm TP PRN BID Dilaudid (Hydromorphone Hcl) 2 Mg Tablet 1 Tab PO PRN QID PRN Lorazepam 0.5 Mg Tablet 0.5 Mg PO Q6HRS PRN Vitals/I & O Vital Sign - Last 24 Hours 04/27/17 04/27/17 04/27/17 04/27/17 17:09 19:15 20:00 21:00 Temp 98.2 98.2 Pulse 92 92 Resp 16 B/P (MAP) 111/65 (80) 111/65 Pulse Ox 95 O2 Delivery Room Air Room Air Room Air 04/27/17 04/27/17 04/27/17 04/28/17 22:19 23:15 23:55 03:15 Temp 98.0 97.6 98.0 97.6 Pulse 92 79 84 Resp 16 16 B/P (MAP) 111/65 148/81 (103) 165/89 (114) Pulse Ox 100 94 O2 Delivery Room Air Room Air Room Air 04/28/17 04/28/17 04/28/17 04/28/17 05:53 07:00 07:12 08:03 Temp 97.5 97.5 Pulse 80 80 Resp 18 B/P (MAP) 143/76 (98) 143/76 Pulse Ox 97 O2 Delivery Room Air Room Air Room Air 04/28/17 04/28/17 04/28/17 04/28/17 08:04 11:00 11:28 11:53 Temp 98.7 98.7 Pulse 80 89 Resp 18 B/P (MAP) 143/76 134/80 (98) Pulse Ox 100 O2 Delivery Room Air Room Air Room Air 04/28/17 04/28/17 04/28/17 13:04 13:04 15:00 Temp 98.1 98.1 Pulse 89 89 89 Resp 18 B/P (MAP) 134/80 134/80 122/78 (93) Pulse Ox 99 O2 Delivery Room Air Intake and Output 04/27/17 04/27/17 04/28/17 15:00 23:00 07:00 Intake Total 800 ml 580 ml Balance 800 ml 580 ml Nutrition Consultation Dietary Evaluation: Recommendations by RD: PPN/TPN Comments: continue home TPN regimen diet as tolerated Expected Outcomes/Goals: to continue to meet > 75% est nutrition needs via TPN Malnutrition Findings: Weight Status: Appropriate ENMA FINLEY MD Apr 28, 2017 16:59
[2017-04-28] MEDS ORDERED: AMINO ACIDS IV SCH ×20 (22:00)
[2017-04-28] MEDS ORDERED: [UNRECOGNIZED DRUG - OTHER] IV SCH ×10 (22:00)
[2017-04-28] MEDS ORDERED: TOTAL PARENTERAL NUTRITION IV SCH ×20 (22:00)
[2017-04-28] MEDS ORDERED: DEXTROSE 70% IV SCH ×20 (22:00)
[2017-04-28] MEDS ORDERED: [UNRECOGNIZED DRUG - OTHER] IV SCH ×10 (22:00)
[2017-04-29] MEDS: HYDROmorphone 2 MG/ML VIAL IV PRN ×3 (00:56→17:43)
[2017-04-29 03:36] VITALS: BP 123/81
[2017-04-29 04:50] LABS: CALCIUM 8.6 mg/dL (8.5-10.1); CREATININE 0.6 mg/dL (0.6-1.0); GFR 122.6; MAGNESIUM 1.9 mg/dL (1.8-2.4); POTASSIUM 5.3 mmol/L (3.5-5.1)
[2017-04-29 07:00] VITALS: BP 148/73
--- NOTE | 2017-04-29 08:49 | PDOC ---
PROGRESS NOTES Subjective Subjective HPI - f/u of Eosinophilia ROS - has abd pain Objective Objective Vital Signs Date Time Temp Pulse Resp B/P (MAP) Pulse Ox O2 Delivery O2 Flow Rate FiO2 04/29/17 07:00 98.1 78 16 148/73 (98) 99 Room Air 98.1 Intake and Output 04/29/17 07:00 Intake Total 310 ml Balance 310 ml Intake Oral 310 ml # Voids 6 Physical Exam Heart: Normal S1, Normal S2 General: Alert, Oriented X3 Lungs: Clear to auscultation Neuro: Normal speech Psych/Mental Status: Mental status NL Assessment Assessment Problems Medical Problems: (1) Enterocutaneous fistula Status: Acute (2) Hypokalemia Status: Acute (3) Hypomagnesemia Status: Acute (4) Severe protein-calorie malnutrition Status: Acute (5) UTI (urinary tract infection) Status: Acute IMPRESSION AND PLAN: 1. Eosinophilia. The patient has had evidence of relative eosinophilia, but the absolute eosinophil count has normalized. This is suggestive of a reactive eosinophilia, could be from underlying infection. However, since the eosinophil count is now normal and she only has mild relative eosinophil elevation, this would be clinically insignificant. I do not suspect any primary hematologic disorder. I would continue to monitor eosinophil counts. I would not recommend any further workup or changes to her current ongoing management. Eos today 13%. Monitor. I d/w DR Almanza. 2. Urinary tract infection. Continue management per Infectious Diseases. 3. Abd pain - stable Comment Review of Relevant I have reviewed the following items lucila (where applicable) has been applied. Labs Laboratory Tests Test 04/28/17 06:05 04/29/17 02:40 White Blood Count 4.0 x10^3/uL (4.0-11.0) Red Blood Count 3.51 x10^6/uL (3.50-5.40) Hemoglobin 8.5 g/dL (12.0-15.5) Hematocrit 27.0 % (36.0-47.0) Mean Corpuscular Volume 77 fL (79-100) Mean Corpuscular Hemoglobin 24 pg (25-35) Mean Corpuscular Hemoglobin Concent 32 g/dL (31-37) Red Cell Distribution Width 21.8 % (11.5-14.5) Platelet Count 347 x10^3/uL (140-400) Neutrophils (%) (Auto) 45 % (31-73) Lymphocytes (%) (Auto) 34 % (24-48) Monocytes (%) (Auto) 6 % (0-9) Eosinophils (%) (Auto) 13 % (0-3) Basophils (%) (Auto) 2 % (0-3) Neutrophils # (Auto) 1.8 x10^3uL (1.8-7.7) Lymphocytes # (Auto) 1.4 x10^3/uL (1.0-4.8) Monocytes # (Auto) 0.2 x10^3/uL (0.0-1.1) Eosinophils # (Auto) 0.5 x10^3/uL (0.0-0.7) Basophils # (Auto) 0.1 x10^3/uL (0.0-0.2) Sodium Level 136 mmol/L (136-145) 135 mmol/L (136-145) Potassium Level 5.1 mmol/L (3.5-5.1) 5.3 mmol/L (3.5-5.1) Chloride Level 106 mmol/L (98-107) 104 mmol/L (98-107) Carbon Dioxide Level 27 mmol/L (21-32) 26 mmol/L (21-32) Anion Gap 3 (6-14) 5 (6-14) Blood Urea Nitrogen 15 mg/dL (7-20) 14 mg/dL (7-20) Creatinine 0.7 mg/dL (0.6-1.0) 0.6 mg/dL (0.6-1.0) Estimated GFR (Cockcroft-Gault) 102.6 122.6 Glucose Level 93 mg/dL (70-99) 94 mg/dL (70-99) Calcium Level 8.6 mg/dL (8.5-10.1) 8.6 mg/dL (8.5-10.1) Phosphorus Level 3.7 mg/dL (2.6-4.7) Magnesium Level 1.9 mg/dL (1.8-2.4) Laboratory Tests Test 04/29/17 02:40 Sodium Level 135 mmol/L (136-145) Potassium Level 5.3 mmol/L (3.5-5.1) Chloride Level 104 mmol/L (98-107) Carbon Dioxide Level 26 mmol/L (21-32) Anion Gap 5 (6-14) Blood Urea Nitrogen 14 mg/dL (7-20) Creatinine 0.6 mg/dL (0.6-1.0) Estimated GFR (Cockcroft-Gault) 122.6 Glucose Level 94 mg/dL (70-99) Calcium Level 8.6 mg/dL (8.5-10.1) Phosphorus Level 3.7 mg/dL (2.6-4.7) Magnesium Level 1.9 mg/dL (1.8-2.4) Microbiology 04/23/17 Blood Culture - Final, Complete NO GROWTH AFTER 5 DAYS 04/22/17 Urine Culture - Final, Complete 04/22/17 Urine Culture Result 1 (ROYA) - Final, Complete 04/22/17 Antimicrobic Susceptibility - Final, Complete Medications Current Medications Fentanyl Citrate (Fentanyl 2ml Vial) 50 mcg PRN Q15MIN PRN IV PAIN GREATER THAN 3/10 Last administered on 04/22/17 20:37; Start 04/22/17 at 17:15; Stop 04/23/17 at 17:14; Status DC Sodium Chloride 1,000 ml @ 1,000 mls/hr Q1H IV Last administered on 04/22/17 17:29; Start 04/22/17 at 17:06; Stop 04/22/17 at 18:05; Status DC Ondansetron HCl (Zofran) 4 mg 1X ONCE IV Last administered on 04/22/17 17:28 ; Start 04/22/17 at 17:15; Stop 04/22/17 at 17:16; Status DC Potassium Chloride 50 ml @ 50 mls/hr 1X ONCE IV Last administered on 19:17; Start 04/22/17 at 18:00; Stop 04/22/17 at 18:59; Status DC Lidocaine (Xylocaine) 1 sang BID TP Last administered on 04/28/17 08:02; Start 04/22/17 at 21:00 Zinc Oxide 1 sang BID TP Last administered on 04/28/17 08:02; Start 04/22/17 at 21:00 Linezolid 300 ml @ 300 mls/hr Q12HR IV Last administered on 04/26/17 08:42; Start 04/22/17 at 21:00; Stop 04/26/17 at 10:54; Status DC Piperacillin Sod/ Tazobactam Sod 3.375 gm/Dextrose 50 ml @ 100 mls/hr Q6HRS IV ; Start 04/23/17 at 00:00; Status UNV Zolpidem Tartrate (Ambien) 5 mg PRN QHS PRN PO INSOMNIA, MAY REPEAT IN 1HR; Start 04/22/17 at 18:15 Potassium Chloride/Dextrose/ Sod Cl 1,000 ml @ 80 mls/hr 1X ONCE IV Last administered on 04/22/17 23:55; Start 04/22/17 at 18:15; Stop 04/23/17 at 06: 44; Status DC Hydromorphone HCl (Dilaudid) 2 mg PRN Q6HRS PRN PO PAIN; Start 04/22/17 at 18: 15; Stop 04/26/17 at 12:43; Status DC Ondansetron HCl (Zofran) 4 mg PRN Q8HRS PRN IV NAUSEA/VOMITING Last administered on 04/23/17 15:49; Start 04/22/17 at 18:15; Stop 04/23/17 at 18: 14; Status DC Info 1 each PRN DAILY PRN MC SEE COMMENTS Last administered on 04/28/17 13:46 ; Start 04/22/17 at 18:30 Magnesium Sulfate/ Dextrose 50 ml @ 25 mls/hr 1X ONCE IV Last administered on 04/22/17 19:17; Start 04/22/17 at 18:30; Stop 04/22/17 at 20:29; Status DC Potassium Chloride 50 ml @ 50 mls/hr Q1H IV Last administered on 04/22/17 23: 05; Start 04/22/17 at 18:30; Stop 04/22/17 at 21:29; Status DC Magnesium Sulfate/ Dextrose 50 ml @ 25 mls/hr 1X ONCE IV Last administered on 04/22/17 21:57; Start 04/22/17 at 20:30; Stop 04/22/17 at 22:29; Status DC Piperacillin Sod/ Tazobactam Sod (Zosyn) 3.375 gm Q6HRS IVP Last administered on 04/27/17 05:44; Start 04/22/17 at 18:30; Stop 04/27/17 at 10:05; Status DC Lorazepam (Ativan) 0.5 mg PRN Q6HRS PRN PO ANXIETY Last administered on 21:05; Start 04/22/17 at 22:15; Stop 04/26/17 at 12:43; Status DC Hydromorphone HCl (Dilaudid) 2 mg PRN Q4HRS PRN IV SEVERE PAIN Last administered on 04/23/17 06:18; Start 04/22/17 at 22:15; Stop 04/23/17 at 10: 15; Status DC Hydromorphone HCl (Dilaudid) 4 mg PRN Q6HRS PRN IV SEVERE PAIN Last administered on 04/29/17 00:56; Start 04/23/17 at 10:15 Acetaminophen (Tylenol) 650 mg PRN Q6HRS PRN PO MILD PAIN / TEMP; Start at 10:15 Fentanyl (Duragesic 25mcg/ Hr Patch) 1 patch Q3DAYS TD Last administered on 08:40; Start 04/23/17 at 10:30 Famotidine (Pepcid) 20 mg BID PO Last administered on 04/25/17 08:01; Start 04/23/17 at 11:00; Stop 04/25/17 at 08:38; Status DC Lorazepam (Ativan) 0.5 mg PRN Q6HRS PRN PO ANXIETY / AGITATION Last administered on 04/27/17 23:54; Start 04/23/17 at 10:15 Sertraline HCl (Zoloft) 50 mg DAILY PO Last administered on 04/28/17 08:03; Start 04/23/17 at 11:00 Ondansetron HCl (Zofran) 4 mg PRN Q6HRS PRN IV NAUSEA/VOMITING Last administered on 04/27/17 22:18; Start 04/23/17 at 10:15 Amlodipine Besylate (Norvasc) 10 mg DAILY PO Last administered on 04/27/17 08 :13; Start 04/23/17 at 11:00; Stop 04/27/17 at 10:10; Status DC Sodium Chloride 210 meq/Potassium Chloride 120 meq/ Magnesium Sulfate 32 meq/ Multivitamins 10 ml/Chromium/ Copper/Manganese/ Seleni/Zn 1 ml/ Total Parenteral Nutrition/Amino Acids/Dextrose/ Fat Emulsion Intravenous 1,920 ml @ 80 mls/hr TPN CONT IV ; Start 04/23/17 at 22:00; Stop 04/24/17 at 21:59; Status Cancel Magnesium Sulfate/ Dextrose 50 ml @ 25 mls/hr 1X ONCE IV Last administered on 04/23/17 15:49; Start 04/23/17 at 13:00; Stop 04/23/17 at 14:59; Status DC Sodium Chloride 210 meq/Potassium Chloride 120 meq/ Potassium Acetate 20 meq/ Magnesium Sulfate 32 meq/ Multivitamins 10 ml/Chromium/ Copper/Manganese/ Seleni /Zn 1 ml/ Total Parenteral Nutrition/Amino Acids/Dextrose/ Fat Emulsion Intravenous 1,920 ml @ 80 mls/hr TPN CONT IV Last administered on 04/23/17 20:27; Start 04/23/17 at 22:00; Stop 04/24/17 at 21:59; Status DC Alteplase, Recombinant (Cathflo) 2 mg 1X ONCE INT CAT Last administered on 10:00; Start 04/24/17 at 10:00; Stop 04/24/17 at 10:01; Status DC Sodium Chloride 210 meq/Potassium Chloride 120 meq/ Potassium Acetate 20 meq/ Magnesium Sulfate 32 meq/ Multivitamins 10 ml/Chromium/ Copper/Manganese/ Seleni /Zn 1 ml/ Total Parenteral Nutrition/Amino Acids/Dextrose/ Fat Emulsion Intravenous 1,920 ml @ 80 mls/hr TPN CONT IV Last administered on 04/24/17 22:40; Start 04/24/17 at 22:00; Stop 04/25/17 at 21:59; Status DC Diphenhydramine HCl (Benadryl) 25 mg PRN Q6HRS PRN PO ITCHING Last administered on 04/24/17 20:16; Start 04/24/17 at 13:45 Pantoprazole Sodium (Protonix) 40 mg DAILYAC PO Last administered on 08:03; Start 04/25/17 at 10:00 Hydrochlorothiazide (Hydrodiuril) 25 mg DAILY PO Last administered on 08:03; Start 04/25/17 at 09:00 Sodium Chloride 210 meq/Potassium Chloride 120 meq/ Potassium Acetate 20 meq/ Magnesium Sulfate 32 meq/ Multivitamins 10 ml/Chromium/ Copper/Manganese/ Seleni /Zn 1 ml/ Total Parenteral Nutrition/Amino Acids/Dextrose/ Fat Emulsion Intravenous 1,920 ml @ 80 mls/hr TPN CONT IV Last administered on 04/25/17 23:33; Start 04/25/17 at 22:00; Stop 04/26/17 at 08:17; Status DC Sodium Chloride 1,000 ml @ 80 mls/hr [id number] IV Last administered on 08:40; Start 04/26/17 at 08:15; Stop 04/26/17 at 22:08; Status DC Sodium Polystyrene Sulfonate (Kayexalate) 15 gm 1X ONCE PO Last administered on 04/26/17 08:52; Start 04/26/17 at 08:45; Stop 04/26/17 at 08:46; Status DC Sodium Chloride 210 meq/Potassium Chloride 80 meq/ Potassium Acetate 20 meq/ Magnesium Sulfate 32 meq/ Multivitamins 10 ml/Chromium/ Copper/Manganese/ Seleni /Zn 1 ml/ Potassium Phosphate 6.8 mmol/Total Parenteral Nutrition/Amino Acids/ Dextrose/ Fat Emulsion Intravenous 1,920 ml @ 80 mls/hr TPN CONT IV Last administered on 04/26/17 22:08; Start 04/26/17 at 22:00; Stop 04/27/17 at 21 :59; Status DC Amoxicillin/ Clavulanate Potassium (Augmentin 400-57mg/5ml Susp) 10 ml Q12HR PO Last administered on 04/28/17 21:21; Start 04/27/17 at 11:00 Hydralazine HCl (Apresoline) 25 mg TID PO Last administered on 04/28/17 21:19 ; Start 04/27/17 at 10:30 Isosorbide Dinitrate (Isordil) 20 mg TID PO Last administered on 04/28/17 21: 19; Start 04/27/17 at 10:30 Sodium Chloride 210 meq/Potassium Chloride 80 meq/ Potassium Acetate 20 meq/ Magnesium Sulfate 32 meq/ Multivitamins 10 ml/Chromium/ Copper/Manganese/ Seleni /Zn 1 ml/ Potassium Phosphate 6.8 mmol/Total Parenteral Nutrition/Amino Acids/ Dextrose/ Fat Emulsion Intravenous 1,920 ml @ 80 mls/hr TPN CONT IV Last administered on 04/27/17 22:18; Start 04/27/17 at 22:00; Stop 04/28/17 at 09 :54; Status DC Sodium Chloride 210 meq/Potassium Chloride 80 meq/ Potassium Acetate 20 meq/ Magnesium Sulfate 32 meq/ Multivitamins 10 ml/Chromium/ Copper/Manganese/ Seleni /Zn 1 ml/ Potassium Phosphate 6.8 mmol/Total Parenteral Nutrition/Amino Acids/ Dextrose/ Fat Emulsion Intravenous 1,920 ml @ 80 mls/hr TPN CONT IV ; Start 04/27/17 at 22:00; Stop 04/28/17 at 21:59; Status DC Sodium Chloride 210 meq/Potassium Chloride 60 meq/ Potassium Acetate 20 meq/ Magnesium Sulfate 32 meq/ Multivitamins 10 ml/Chromium/ Copper/Manganese/ Seleni /Zn 1 ml/ Potassium Phosphate 8 mmol/ Total Parenteral Nutrition/Amino Acids/ Dextrose/ Fat Emulsion Intravenous 1,920 ml @ 80 mls/hr TPN CONT IV ; Start 04/28/17 at 22:00; Stop 04/28/17 at 22:00; Status DC Sodium Chloride 210 meq/Potassium Chloride 60 meq/ Potassium Acetate 20 meq/ Magnesium Sulfate 32 meq/ Multivitamins 10 ml/Chromium/ Copper/Manganese/ Seleni /Zn 1 ml/ Potassium Phosphate 6.8 mmol/Total Parenteral Nutrition/Amino Acids/ Dextrose/ Fat Emulsion Intravenous 1,920 ml @ 80 mls/hr TPN CONT IV Last administered on 04/28/17 22:05; Start 04/28/17 at 22:00; Stop 04/29/17 at 21 :59 Active Scripts Active FENTANYL 25mcg/hr (Fentanyl) 1 Each Patch.td72 1 Patch TD Q72H 30 Days Amlodipine Besylate 5 Mg Tablet 10 Mg PO DAILY 30 Days Sertraline Hcl 50 Mg Tablet 50 Mg PO DAILY 30 Days Famotidine 20 Mg Tablet 20 Mg PO BID 60 Days Lidocaine 35.44 Gm Oint...g. 1 Sang TP BID Reported Zofran Odt (Ondansetron) 4 Mg Tab.rapdis 1 Tab SL PRN Q8HRS PRN Zinc Oxide 56.7 Gm Oint...g. 56.7 Gm TP PRN BID Dilaudid (Hydromorphone Hcl) 2 Mg Tablet 1 Tab PO PRN QID PRN Lorazepam 0.5 Mg Tablet 0.5 Mg PO Q6HRS PRN Vitals/I & O Vital Sign - Last 24 Hours 04/28/17 04/28/17 04/28/17 04/28/17 11:00 11:28 13:04 13:04 Temp 98.7 98.7 Pulse 89 89 89 Resp 18 B/P (MAP) 134/80 (98) 134/80 134/80 Pulse Ox 100 O2 Delivery Room Air Room Air 04/28/17 04/28/17 04/28/17 04/28/17 15:00 18:31 19:41 20:00 Temp 98.1 97.8 98.1 97.8 Pulse 89 80 Resp 18 20 B/P (MAP) 122/78 (93) 153/77 (102) Pulse Ox 99 100 O2 Delivery Room Air Room Air Room Air Room Air 04/28/17 04/28/17 04/28/17 04/29/17 21:19 21:19 23:17 00:56 Temp 97.8 97.8 Pulse 80 80 77 Resp 20 20 B/P (MAP) 153/77 153/77 138/72 (94) Pulse Ox 100 96 O2 Delivery Room Air Room Air 04/29/17 04/29/17 04/29/17 01:26 03:36 07:00 Temp 97.6 98.1 97.6 98.1 Pulse 71 78 Resp 20 20 16 B/P (MAP) 123/81 (95) 148/73 (98) Pulse Ox 97 100 99 O2 Delivery Room Air Room Air Room Air Intake and Output 04/28/17 04/28/17 04/29/17 15:00 23:00 07:00 Intake Total 310 ml Balance 310 ml Nutrition Consultation Dietary Evaluation: Recommendations by RD: PPN/TPN Comments: continue home TPN regimen diet as tolerated Expected Outcomes/Goals: to continue to meet > 75% est nutrition needs via TPN Malnutrition Findings: Weight Status: Appropriate ENMA FINLEY MD Apr 29, 2017 08:49
[2017-04-29] MEDS: LIDOCAINE 5% TOPICAL OINTMENT 35GM TUBE. TP SCH (09:00)
[2017-04-29] MEDS: ZINC OXIDE 20% TOPICAL OINTMENT 28GM TUBE. TP SCH (09:00)
[2017-04-29] MEDS: hydroCHLOROthiazide 25 MG TABLET PO SCH (09:28)
[2017-04-29] MEDS: hydrALAZINE 25 MG TABLET PO SCH (09:28)
[2017-04-29] MEDS: PANTOPRAZOLE 40 MG TABLET.DR. PO SCH (09:28)
[2017-04-29] MEDS: SERTRALINE 50 MG TABLET. PO SCH (09:29)
[2017-04-29] MEDS: fentaNYL 25MCG/HR PATCH 1 PATCH PATCH.TD72 TD SCH (09:29)
[2017-04-29] MEDS: ISOSORBIDE DINITRATE 10 MG TABLET. PO SCH (09:29)
[2017-04-29] MEDS: AMOXICILLIN/CLAV 400MG/57MG 5 ML ORAL.SUSP. PO SCH (10:15)
[2017-04-29 11:00] VITALS: BP 110/61
--- NOTE | 2017-04-29 12:46 | DISCH ---
DISCHARGE INSTRUCTIONS Condition on Discharge Condition on Discharge: Stable Activity After Discharge Activity Instructions for Disc: Resume previous activity Diet after Discharge Diet after Discharge: GI Soft Contacting the DRShell after DC Call your doctor for: If your condition worsens Follow-Up Follow up with: dr. lutz next week BENITA LUTZ MD Apr 29, 2017 12:46
[2017-04-29] MEDS ORDERED: HYDR25TA9 PO (12:48)
[2017-04-29] MEDS ORDERED: AMOXICILLIN PO (12:48)
[2017-04-29] MEDS ORDERED: CLAVULANATE PO (12:48)
--- NOTE | 2017-04-29 12:57 | PDOC ---
PROGRESS NOTES Subjective Subjective feels well. lab reviewed. potassium 5.3. systolic bp 110 . will continue hctz and discontinue isosorbide and hydralazine. venous doppler LLE net for DVT Objective Objective Vital Signs Date Time Temp Pulse Resp B/P (MAP) Pulse Ox O2 Delivery O2 Flow Rate FiO2 04/29/17 11:00 97.9 86 16 110/61 (77) 97 Room Air 97.9 Intake and Output 04/29/17 07:00 Intake Total 310 ml Balance 310 ml Intake Oral 310 ml # Voids 6 Physical Exam Abdomen: Soft Heart: Regular rate, Normal S1, Normal S2 Extremities: Other (2 plus edema left foot) General: Alert HEENT: Atraumatic Lungs: Clear to auscultation Neuro: Normal speech Psych/Mental Status: Mental status NL Skin: No rashes Assessment Assessment Problems Fever, although she is afebrile now. 2. e. coli uti in setting of enterovesical fistula. 3. Abdominal pain.due to adhesions 4. Enterocutaneous fistula. 5. Enterovesical fistula. 6. Hypokalemia.treated 7. Hypomagnesemia. treated 8. Severe protein-calorie malnutrition. 9. Hypertension. reflux esophagitis left leg edema. venous doppler neg for DVT. off of amlodipine. continue hctz and leg elevation Medical Problems: (1) Enterocutaneous fistula Status: Acute (2) Hypokalemia Status: Acute (3) Hypomagnesemia Status: Acute (4) Severe protein-calorie malnutrition Status: Acute (5) UTI (urinary tract infection) Status: Acute Plan Plan of Care dismiss today d/c isosorbide dinitrate and hydralazine continue hctz continue TPN expect potassium level to decrease as kcl in TPN is 30 meq less than before admission Comment Review of Relevant I have reviewed the following items lucila (where applicable) has been applied. Labs Laboratory Tests Test 04/28/17 06:05 04/29/17 02:40 White Blood Count 4.0 x10^3/uL (4.0-11.0) Red Blood Count 3.51 x10^6/uL (3.50-5.40) Hemoglobin 8.5 g/dL (12.0-15.5) Hematocrit 27.0 % (36.0-47.0) Mean Corpuscular Volume 77 fL (79-100) Mean Corpuscular Hemoglobin 24 pg (25-35) Mean Corpuscular Hemoglobin Concent 32 g/dL (31-37) Red Cell Distribution Width 21.8 % (11.5-14.5) Platelet Count 347 x10^3/uL (140-400) Neutrophils (%) (Auto) 45 % (31-73) Lymphocytes (%) (Auto) 34 % (24-48) Monocytes (%) (Auto) 6 % (0-9) Eosinophils (%) (Auto) 13 % (0-3) Basophils (%) (Auto) 2 % (0-3) Neutrophils # (Auto) 1.8 x10^3uL (1.8-7.7) Lymphocytes # (Auto) 1.4 x10^3/uL (1.0-4.8) Monocytes # (Auto) 0.2 x10^3/uL (0.0-1.1) Eosinophils # (Auto) 0.5 x10^3/uL (0.0-0.7) Basophils # (Auto) 0.1 x10^3/uL (0.0-0.2) Sodium Level 136 mmol/L (136-145) 135 mmol/L (136-145) Potassium Level 5.1 mmol/L (3.5-5.1) 5.3 mmol/L (3.5-5.1) Chloride Level 106 mmol/L (98-107) 104 mmol/L (98-107) Carbon Dioxide Level 27 mmol/L (21-32) 26 mmol/L (21-32) Anion Gap 3 (6-14) 5 (6-14) Blood Urea Nitrogen 15 mg/dL (7-20) 14 mg/dL (7-20) Creatinine 0.7 mg/dL (0.6-1.0) 0.6 mg/dL (0.6-1.0) Estimated GFR (Cockcroft-Gault) 102.6 122.6 Glucose Level 93 mg/dL (70-99) 94 mg/dL (70-99) Calcium Level 8.6 mg/dL (8.5-10.1) 8.6 mg/dL (8.5-10.1) Phosphorus Level 3.7 mg/dL (2.6-4.7) Magnesium Level 1.9 mg/dL (1.8-2.4) Laboratory Tests Test 04/29/17 02:40 Sodium Level 135 mmol/L (136-145) Potassium Level 5.3 mmol/L (3.5-5.1) Chloride Level 104 mmol/L (98-107) Carbon Dioxide Level 26 mmol/L (21-32) Anion Gap 5 (6-14) Blood Urea Nitrogen 14 mg/dL (7-20) Creatinine 0.6 mg/dL (0.6-1.0) Estimated GFR (Cockcroft-Gault) 122.6 Glucose Level 94 mg/dL (70-99) Calcium Level 8.6 mg/dL (8.5-10.1) Phosphorus Level 3.7 mg/dL (2.6-4.7) Magnesium Level 1.9 mg/dL (1.8-2.4) Microbiology 04/23/17 Blood Culture - Final, Complete NO GROWTH AFTER 5 DAYS 04/22/17 Urine Culture - Final, Complete 04/22/17 Urine Culture Result 1 (ROYA) - Final, Complete 04/22/17 Antimicrobic Susceptibility - Final, Complete Medications Current Medications Fentanyl Citrate (Fentanyl 2ml Vial) 50 mcg PRN Q15MIN PRN IV PAIN GREATER THAN 3/10 Last administered on 04/22/17 20:37; Start 04/22/17 at 17:15; Stop 04/23/17 at 17:14; Status DC Sodium Chloride 1,000 ml @ 1,000 mls/hr Q1H IV Last administered on 04/22/17 17:29; Start 04/22/17 at 17:06; Stop 04/22/17 at 18:05; Status DC Ondansetron HCl (Zofran) 4 mg 1X ONCE IV Last administered on 04/22/17 17:28 ; Start 04/22/17 at 17:15; Stop 04/22/17 at 17:16; Status DC Potassium Chloride 50 ml @ 50 mls/hr 1X ONCE IV Last administered on 19:17; Start 04/22/17 at 18:00; Stop 04/22/17 at 18:59; Status DC Lidocaine (Xylocaine) 1 sang BID TP Last administered on 04/28/17 08:02; Start 04/22/17 at 21:00 Zinc Oxide 1 sang BID TP Last administered on 04/28/17 08:02; Start 04/22/17 at 21:00 Linezolid 300 ml @ 300 mls/hr Q12HR IV Last administered on 04/26/17 08:42; Start 04/22/17 at 21:00; Stop 04/26/17 at 10:54; Status DC Piperacillin Sod/ Tazobactam Sod 3.375 gm/Dextrose 50 ml @ 100 mls/hr Q6HRS IV ; Start 04/23/17 at 00:00; Status UNV Zolpidem Tartrate (Ambien) 5 mg PRN QHS PRN PO INSOMNIA, MAY REPEAT IN 1HR; Start 04/22/17 at 18:15 Potassium Chloride/Dextrose/ Sod Cl 1,000 ml @ 80 mls/hr 1X ONCE IV Last administered on 04/22/17 23:55; Start 04/22/17 at 18:15; Stop 04/23/17 at 06: 44; Status DC Hydromorphone HCl (Dilaudid) 2 mg PRN Q6HRS PRN PO PAIN; Start 04/22/17 at 18: 15; Stop 04/26/17 at 12:43; Status DC Ondansetron HCl (Zofran) 4 mg PRN Q8HRS PRN IV NAUSEA/VOMITING Last administered on 04/23/17 15:49; Start 04/22/17 at 18:15; Stop 04/23/17 at 18: 14; Status DC Info 1 each PRN DAILY PRN MC SEE COMMENTS Last administered on 04/28/17 13:46 ; Start 04/22/17 at 18:30 Magnesium Sulfate/ Dextrose 50 ml @ 25 mls/hr 1X ONCE IV Last administered on 04/22/17 19:17; Start 04/22/17 at 18:30; Stop 04/22/17 at 20:29; Status DC Potassium Chloride 50 ml @ 50 mls/hr Q1H IV Last administered on 04/22/17 23: 05; Start 04/22/17 at 18:30; Stop 04/22/17 at 21:29; Status DC Magnesium Sulfate/ Dextrose 50 ml @ 25 mls/hr 1X ONCE IV Last administered on 04/22/17 21:57; Start 04/22/17 at 20:30; Stop 04/22/17 at 22:29; Status DC Piperacillin Sod/ Tazobactam Sod (Zosyn) 3.375 gm Q6HRS IVP Last administered on 04/27/17 05:44; Start 04/22/17 at 18:30; Stop 04/27/17 at 10:05; Status DC Lorazepam (Ativan) 0.5 mg PRN Q6HRS PRN PO ANXIETY Last administered on 21:05; Start 04/22/17 at 22:15; Stop 04/26/17 at 12:43; Status DC Hydromorphone HCl (Dilaudid) 2 mg PRN Q4HRS PRN IV SEVERE PAIN Last administered on 04/23/17 06:18; Start 04/22/17 at 22:15; Stop 04/23/17 at 10: 15; Status DC Hydromorphone HCl (Dilaudid) 4 mg PRN Q6HRS PRN IV SEVERE PAIN Last administered on 04/29/17 09:30; Start 04/23/17 at 10:15 Acetaminophen (Tylenol) 650 mg PRN Q6HRS PRN PO MILD PAIN / TEMP; Start at 10:15 Fentanyl (Duragesic 25mcg/ Hr Patch) 1 patch Q3DAYS TD Last administered on 09:29; Start 04/23/17 at 10:30 Famotidine (Pepcid) 20 mg BID PO Last administered on 04/25/17 08:01; Start 04/23/17 at 11:00; Stop 04/25/17 at 08:38; Status DC Lorazepam (Ativan) 0.5 mg PRN Q6HRS PRN PO ANXIETY / AGITATION Last administered on 04/27/17 23:54; Start 04/23/17 at 10:15 Sertraline HCl (Zoloft) 50 mg DAILY PO Last administered on 04/29/17 09:29; Start 04/23/17 at 11:00 Ondansetron HCl (Zofran) 4 mg PRN Q6HRS PRN IV NAUSEA/VOMITING Last administered on 04/27/17 22:18; Start 04/23/17 at 10:15 Amlodipine Besylate (Norvasc) 10 mg DAILY PO Last administered on 04/27/17 08 :13; Start 04/23/17 at 11:00; Stop 04/27/17 at 10:10; Status DC Sodium Chloride 210 meq/Potassium Chloride 120 meq/ Magnesium Sulfate 32 meq/ Multivitamins 10 ml/Chromium/ Copper/Manganese/ Seleni/Zn 1 ml/ Total Parenteral Nutrition/Amino Acids/Dextrose/ Fat Emulsion Intravenous 1,920 ml @ 80 mls/hr TPN CONT IV ; Start 04/23/17 at 22:00; Stop 04/24/17 at 21:59; Status Cancel Magnesium Sulfate/ Dextrose 50 ml @ 25 mls/hr 1X ONCE IV Last administered on 04/23/17 15:49; Start 04/23/17 at 13:00; Stop 04/23/17 at 14:59; Status DC Sodium Chloride 210 meq/Potassium Chloride 120 meq/ Potassium Acetate 20 meq/ Magnesium Sulfate 32 meq/ Multivitamins 10 ml/Chromium/ Copper/Manganese/ Seleni /Zn 1 ml/ Total Parenteral Nutrition/Amino Acids/Dextrose/ Fat Emulsion Intravenous 1,920 ml @ 80 mls/hr TPN CONT IV Last administered on 04/23/17 20:27; Start 04/23/17 at 22:00; Stop 04/24/17 at 21:59; Status DC Alteplase, Recombinant (Cathflo) 2 mg 1X ONCE INT CAT Last administered on 10:00; Start 04/24/17 at 10:00; Stop 04/24/17 at 10:01; Status DC Sodium Chloride 210 meq/Potassium Chloride 120 meq/ Potassium Acetate 20 meq/ Magnesium Sulfate 32 meq/ Multivitamins 10 ml/Chromium/ Copper/Manganese/ Seleni /Zn 1 ml/ Total Parenteral Nutrition/Amino Acids/Dextrose/ Fat Emulsion Intravenous 1,920 ml @ 80 mls/hr TPN CONT IV Last administered on 04/24/17 22:40; Start 04/24/17 at 22:00; Stop 04/25/17 at 21:59; Status DC Diphenhydramine HCl (Benadryl) 25 mg PRN Q6HRS PRN PO ITCHING Last administered on 04/24/17 20:16; Start 04/24/17 at 13:45 Pantoprazole Sodium (Protonix) 40 mg DAILYAC PO Last administered on 09:28; Start 04/25/17 at 10:00 Hydrochlorothiazide (Hydrodiuril) 25 mg DAILY PO Last administered on 09:28; Start 04/25/17 at 09:00 Sodium Chloride 210 meq/Potassium Chloride 120 meq/ Potassium Acetate 20 meq/ Magnesium Sulfate 32 meq/ Multivitamins 10 ml/Chromium/ Copper/Manganese/ Seleni /Zn 1 ml/ Total Parenteral Nutrition/Amino Acids/Dextrose/ Fat Emulsion Intravenous 1,920 ml @ 80 mls/hr TPN CONT IV Last administered on 04/25/17 23:33; Start 04/25/17 at 22:00; Stop 04/26/17 at 08:17; Status DC Sodium Chloride 1,000 ml @ 80 mls/hr [id number] IV Last administered on 08:40; Start 04/26/17 at 08:15; Stop 04/26/17 at 22:08; Status DC Sodium Polystyrene Sulfonate (Kayexalate) 15 gm 1X ONCE PO Last administered on 04/26/17 08:52; Start 04/26/17 at 08:45; Stop 04/26/17 at 08:46; Status DC Sodium Chloride 210 meq/Potassium Chloride 80 meq/ Potassium Acetate 20 meq/ Magnesium Sulfate 32 meq/ Multivitamins 10 ml/Chromium/ Copper/Manganese/ Seleni /Zn 1 ml/ Potassium Phosphate 6.8 mmol/Total Parenteral Nutrition/Amino Acids/ Dextrose/ Fat Emulsion Intravenous 1,920 ml @ 80 mls/hr TPN CONT IV Last administered on 04/26/17 22:08; Start 04/26/17 at 22:00; Stop 04/27/17 at 21 :59; Status DC Amoxicillin/ Clavulanate Potassium (Augmentin 400-57mg/5ml Susp) 10 ml Q12HR PO Last administered on 04/29/17 10:15; Start 04/27/17 at 11:00 Hydralazine HCl (Apresoline) 25 mg TID PO Last administered on 04/29/17 09:28 ; Start 04/27/17 at 10:30; Stop 04/29/17 at 12:46; Status DC Isosorbide Dinitrate (Isordil) 20 mg TID PO Last administered on 04/29/17 09: 29; Start 04/27/17 at 10:30; Stop 04/29/17 at 12:46; Status DC Sodium Chloride 210 meq/Potassium Chloride 80 meq/ Potassium Acetate 20 meq/ Magnesium Sulfate 32 meq/ Multivitamins 10 ml/Chromium/ Copper/Manganese/ Seleni /Zn 1 ml/ Potassium Phosphate 6.8 mmol/Total Parenteral Nutrition/Amino Acids/ Dextrose/ Fat Emulsion Intravenous 1,920 ml @ 80 mls/hr TPN CONT IV Last administered on 04/27/17 22:18; Start 04/27/17 at 22:00; Stop 04/28/17 at 09 :54; Status DC Sodium Chloride 210 meq/Potassium Chloride 80 meq/ Potassium Acetate 20 meq/ Magnesium Sulfate 32 meq/ Multivitamins 10 ml/Chromium/ Copper/Manganese/ Seleni /Zn 1 ml/ Potassium Phosphate 6.8 mmol/Total Parenteral Nutrition/Amino Acids/ Dextrose/ Fat Emulsion Intravenous 1,920 ml @ 80 mls/hr TPN CONT IV ; Start 04/27/17 at 22:00; Stop 04/28/17 at 21:59; Status DC Sodium Chloride 210 meq/Potassium Chloride 60 meq/ Potassium Acetate 20 meq/ Magnesium Sulfate 32 meq/ Multivitamins 10 ml/Chromium/ Copper/Manganese/ Seleni /Zn 1 ml/ Potassium Phosphate 8 mmol/ Total Parenteral Nutrition/Amino Acids/ Dextrose/ Fat Emulsion Intravenous 1,920 ml @ 80 mls/hr TPN CONT IV ; Start 04/28/17 at 22:00; Stop 04/28/17 at 22:00; Status DC Sodium Chloride 210 meq/Potassium Chloride 60 meq/ Potassium Acetate 20 meq/ Magnesium Sulfate 32 meq/ Multivitamins 10 ml/Chromium/ Copper/Manganese/ Seleni /Zn 1 ml/ Potassium Phosphate 6.8 mmol/Total Parenteral Nutrition/Amino Acids/ Dextrose/ Fat Emulsion Intravenous 1,920 ml @ 80 mls/hr TPN CONT IV Last administered on 04/28/17 22:05; Start 04/28/17 at 22:00; Stop 04/29/17 at 21 :59 Active Scripts Active Hydrochlorothiazide Tablet (Hydrochlorothiazide) 25 Mg Tablet 25 Mg PO DAILY 30 Days [Amoxicillin/Clav 400MG/57MG] 5 ML Oral.susp 10 Ml PO Q12HR 1 Days FENTANYL 25mcg/hr (Fentanyl) 1 Each Patch.td72 1 Patch TD Q72H 30 Days Sertraline Hcl 50 Mg Tablet 50 Mg PO DAILY 30 Days Famotidine 20 Mg Tablet 20 Mg PO BID 60 Days Lidocaine 35.44 Gm Oint...g. 1 Sang TP BID Reported Zofran Odt (Ondansetron) 4 Mg Tab.rapdis 1 Tab SL PRN Q8HRS PRN Zinc Oxide 56.7 Gm Oint...g. 56.7 Gm TP PRN BID Dilaudid (Hydromorphone Hcl) 2 Mg Tablet 1 Tab PO PRN QID PRN Lorazepam 0.5 Mg Tablet 0.5 Mg PO Q6HRS PRN Vitals/I & O Vital Sign - Last 24 Hours 04/28/17 04/28/17 04/28/17 04/28/17 13:04 13:04 15:00 18:31 Temp 98.1 98.1 Pulse 89 89 89 Resp 18 B/P (MAP) 134/80 134/80 122/78 (93) Pulse Ox 99 O2 Delivery Room Air Room Air 04/28/17 04/28/17 04/28/17 04/28/17 19:41 20:00 21:19 21:19 Temp 97.8 97.8 Pulse 80 80 80 Resp 20 B/P (MAP) 153/77 (102) 153/77 153/77 Pulse Ox 100 O2 Delivery Room Air Room Air 04/28/17 04/29/17 04/29/17 04/29/17 23:17 00:56 01:26 03:36 Temp 97.8 97.6 97.8 97.6 Pulse 77 71 Resp 20 20 20 20 B/P (MAP) 138/72 (94) 123/81 (95) Pulse Ox 100 96 97 100 O2 Delivery Room Air Room Air Room Air 04/29/17 04/29/17 04/29/17 04/29/17 07:00 09:28 09:29 09:29 Temp 98.1 98.1 Pulse 78 78 78 Resp 16 B/P (MAP) 148/73 (98) 148/73 148/73 Pulse Ox 99 O2 Delivery Room Air Room Air 04/29/17 04/29/17 04/29/17 09:30 10:22 11:00 Temp 97.9 97.9 Pulse 86 Resp 16 B/P (MAP) 110/61 (77) Pulse Ox 97 O2 Delivery Room Air Room Air Room Air Intake and Output 04/28/17 04/28/17 04/29/17 15:00 23:00 07:00 Intake Total 310 ml Balance 310 ml Nutrition Consultation Dietary Evaluation: Recommendations by RD: PPN/TPN Comments: continue home TPN regimen diet as tolerated Expected Outcomes/Goals: to continue to meet > 75% est nutrition needs via TPN Malnutrition Findings: Weight Status: Appropriate BENITA LUTZ MD Apr 29, 2017 12:57
--- NOTE | 2017-04-29 13:02 | PDOC ---
Provider Note Provider Note discharge summary dictated # [id number] BENITA LUTZ MD Apr 29, 2017 13:02
[2017-04-29 15:00] VITALS: BP 154/84
--- NOTE | 2017-04-29 16:03 | DS ---
DATE OF DISCHARGE: 04/29/2017 CONSULTANTS: Include Dr. Almanza and Dr. Soliman. FINAL DIAGNOSES: 1. Escherichia coli urinary tract infection. 2. Enterocutaneous fistula. 3. Abdominal pain secondary to adhesions. 4. Enterovesical fistula. She also has an enterocutaneous fistula. 5. Hypokalemia. 6. Hyperkalemia. 7. Hypomagnesemia. 8. Severe protein calorie malnutrition. 9. Hypertension. 10. Reflux esophagitis. 11. Dependent edema in the left lower extremity. HOSPITAL COURSE: The patient is a 62-year-old female with an enterocutaneous fistula and enterovesical fistula, who was maintained on home total parenteral nutrition and not been feeling well, complaining of dysuria and difficulty urinating, nausea and abdominal pain with a fever up to 101 degrees the other day. She went to the [facility] Emergency Room where urine culture was done and she did have pyuria. Urine culture did grow E. coli sensitive to Rocephin. She was initially admitted to the hospital and started on IV Zyvox and Zosyn. Her potassium was low at 2.8 and magnesium was low at 1.0 and she received supplemental potassium and magnesium with normalization of potassium and magnesium. Her potassium and magnesium was adjusted in her total parenteral nutrition. She then developed hyperkalemia and then the amount of potassium chloride in the total parenteral nutrition was decreased; potassium today is just minimally elevated at 5.3. Her blood pressure was quite high and at one point she was on amlodipine, hydralazine and isosorbide dinitrate. Then she developed left lower extremity edema and a venous Doppler was negative for deep vein thrombosis, treated with elevation of her legs and discontinuation of amlodipine. She was started on hydralazine, isosorbide dinitrate and hydrochlorothiazide. However, her blood pressure is 110 systolic today, so will discontinue the hydralazine and isosorbide dinitrate and just continue the hydrochlorothiazide. Her CAT scan of the abdomen and pelvis was done, which was unremarkable and her abdominal pain was secondary to her abdominal adhesions. Also, her abdominal pain improved. She had some thickening of the distal esophagus and also in the duodenum consistent with duodenitis and esophagitis and was started on Protonix. She had some dyspepsia too, all of which resolved with the Protonix. She therefore will be dismissed to home on Dilaudid 2 mg p.o. q.i.d. p.r.n., Protonix 40 mg p.o. daily, fentanyl 25 mcg patch every 72 hours, Lidoderm ointment followed by zinc oxide b.i.d. to protect her abdominal wall from her enterocutaneous fistula, lorazepam 0.5 mg every 6 hours p.r.n., melatonin 3 mg at bedtime, sertraline 50 mg every day, Tylenol 325 mg 1-2 every 4 hours p.r.n., Zofran 4 mg p.o. every 6 hours p.r.n., hydrochlorothiazide 25 mg every day, and Augmentin 400/57 mg per 5 mL, 10 mL b.i.d. for 1 day. She will follow up and see Dr. Cisneros in the office next week. She will discontinue the amlodipine and famotidine. Continue with her total parenteral nutrition at 80 mL an hour at home via home health with a weekly CBC, CMP, magnesium and phosphorus every Wednesday to be faxed to Dr. Cisneros. BENITA CISNEROS MD DR: [id number] JOB#: [id number] / [id number]
== END 2017-04-29 18:21 | disposition home health service (06) | DRG 393 ==
LOC: ER 16:26 → 6 SOUTH 20:37
PROVIDERS: ADMIT Internal Medicine; ATTEND Internal Medicine
DX: K66.0 Peritoneal adhesions (postprocedural) (postinfection) (principal); E43 Unspecified severe protein-calorie malnutrition; K63.2 Fistula of intestine; D72.1 Eosinophilia; E83.42 Hypomagnesemia; E87.5 Hyperkalemia; N39.0 Urinary tract infection, site not specified; N32.1 Vesicointestinal fistula; B96.20 Unspecified Escherichia coli [E. coli] as the cause of diseases classified elsewhere; B96.89 Other specified bacterial agents as the cause of diseases classified elsewhere; D63.8 Anemia in other chronic diseases classified elsewhere; E87.6 Hypokalemia; F32.9 Major depressive disorder, single episode, unspecified; I10 Essential (primary) hypertension; Z16.11 Resistance to penicillins; K21.0 Gastro-esophageal reflux disease with esophagitis; K29.80 Duodenitis without bleeding; F41.9 Anxiety disorder, unspecified; L24.9 Irritant contact dermatitis, unspecified cause; Z79.899 Other long term (current) drug therapy; Z85.41 Personal history of malignant neoplasm of cervix uteri; Z86.14 Personal history of Methicillin resistant Staphylococcus aureus infection; Z86.718 Personal history of other venous thrombosis and embolism; Z87.11 Personal history of peptic ulcer disease; Z87.19 Personal history of other diseases of the digestive system; Z88.1 Allergy status to other antibiotic agents; Z90.710 Acquired absence of both cervix and uterus; Z68.22 Body mass index [BMI] 22.0-22.9, adult; Z88.6 Allergy status to analgesic agent; Z91.041 Radiographic dye allergy status; Z88.8 Allergy status to other drugs, medicaments and biological substances; Z91.048 Other nonmedicinal substance allergy status
CPT/HCPCS: 36415; 51701; 74022; 74176; 80048; 80053; 81001; 82553; 83690; 83735; 84100; 84478; 84484; 85007; 85025; 87040; 87086; 87186; 93005; 93971; 96361; 96365; 96368; 96375; J1170; J2020; J2405; J2543; J2997; J3010; J3475; J3480; J7030; J7042; J7060; Q0163; 99285-25

== ENCOUNTER → 2017-07-01 | Outpatient (CLI) | payer MEDICARE | END | disposition home or self-care (01) | LOC: CT 12:39 | DX: R10.30 Lower abdominal pain, unspecified (principal); Z98.890 Other specified postprocedural states | CPT/HCPCS: 74176 ==

== ENCOUNTER → 2017-09-14 | Day surgery (SDC) | payer MEDICARE ==
[~2017-09-14] MED LIST changes: -ACET325T9 PO; -ACET650S11 RC; -AMLO10TA2 PO; -AMLO5TAB2 PO; -AMLO5TAB4 PO; -B CO1CAP11 PO; -CEFP100T PO; -CEFP200T PO; -CHLO25TA4 PO; -DARB60DI SQ; -DOCU-109 PO; -DOXY100T PO; -DRON2.5C PO; -DULO30CA43 PO; -DULO60CA6 PO; -Doxycycline Hyclate PO; -FAMO20TA5 PO; -FENT1PAT15 TD; -FENT1PAT17 TD; -FENT1PAT17 TP; -FENT1PAT19 TD; -FENT1PAT21 TD; -FENT1PAT91 TD; -FURO20TA3 PO; -FURO40TA4 PO; -Fentanyl TD; -HYDR2DIS IJ; -HYDR2TAB PO; -HYDR2TAB31 PO; -HYDR4TAB PO; -HYDR4TAB45 PO; -HYOS0.12 PO; -LEVO250T25 PO; -LEVO750T31 PO; -LEVO750T5 PO; -LIDO35.4 TP; +LIDOCAINE 1% PF 2 ML VIAL. ID; -LORA-434 PO; -LORA0.5T PO; -MELA1TAB13 PO; -METO10TA81 PO; -ONDA4DIS4 IJ; -ONDA4TAB10 PO; -ONDA4TAB10 SL; -ONDA4TAB12 PO; -ONDA8TAB9 PO; +ONDANSETRON PF 4 MG/2 ML VIAL. IV; -PANT40TA3 PO; -PANT40TA5 PO; -PHEN-444 PO; +PROCHLORPERAZINE 10 MG/2 ML VIAL. IV; +PROPOFOL 20 ML IV; -SERT50TA PO; -SERT50TA8 PO; -SIME180C4 PO; -SIME80TA PO; -SODI20VI2 IV; -SULF1TAB24 PO; -ZINC56.7 TP; -ZOLP5TAB PO; +fentaNYL PF VIAL 100 MCG/2 ML VIAL IV
[2017-09-14] MEDS: IV RINGERS,LACTATED 1000ML 1,000 ML IV ×2 (09:37)
[2017-09-14] MEDS: HEPARIN PF 500 UNIT/5 ML DISP.SYRIN. IV ×2 (11:12)
== END | disposition home or self-care (01) ==
LOC: ENDOS 08:58
DX: K22.2 Esophageal obstruction (principal); K31.89 Other diseases of stomach and duodenum; K20.8 Other esophagitis; B37.81 Candidal esophagitis; I10 Essential (primary) hypertension; Z86.718 Personal history of other venous thrombosis and embolism; K21.9 Gastro-esophageal reflux disease without esophagitis; Z90.49 Acquired absence of other specified parts of digestive tract; Z90.710 Acquired absence of both cervix and uterus; Z93.2 Ileostomy status; Z93.4 Other artificial openings of gastrointestinal tract status; Z79.899 Other long term (current) drug therapy; Z88.1 Allergy status to other antibiotic agents; Z91.041 Radiographic dye allergy status; F32.9 Major depressive disorder, single episode, unspecified; G60.9 Hereditary and idiopathic neuropathy, unspecified; E66.9 Obesity, unspecified; Z87.11 Personal history of peptic ulcer disease; D63.8 Anemia in other chronic diseases classified elsewhere; Z98.890 Other specified postprocedural states; Z87.01 Personal history of pneumonia (recurrent); Z85.41 Personal history of malignant neoplasm of cervix uteri; E03.9 Hypothyroidism, unspecified; F43.10 Post-traumatic stress disorder, unspecified; F41.9 Anxiety disorder, unspecified; Z87.891 Personal history of nicotine dependence; Z86.14 Personal history of Methicillin resistant Staphylococcus aureus infection; Z82.5 Family history of asthma and other chronic lower respiratory diseases; Z82.49 Family history of ischemic heart disease and other diseases of the circulatory system
CPT/HCPCS: 43239; 43248; 88305; 88312; J2704

== ENCOUNTER 2018-03-05 22:00 | Inpatient (IN) | payer MEDICARE ==
[~2018-03-05] VITALS: Ht 162.6 cm; Wt 59.4 kg
[~2018-03-05 22:00] MED LIST changes: +ACET325T9 PO; +ACET650S11 RC; +AMLO10TA6 PO; +AMLO5TAB4 PO; +AMLO5TAB7 PO; +AMOXICILLIN PO; +B CO1CAP11 PO; +CEFP100T PO; +CEFP200T PO; +CHLO25TA4 PO; +CLAVULANATE PO; +DARB60DI SQ; +DOCU-109 PO; +DOXY100T PO; +DRON2.5C PO; +DULO30CA43 PO; +DULO60CA6 PO; +Doxycycline Hyclate PO; +FAMO20TA5 PO; +FENT1PAT15 TD; +FENT1PAT17 TD; +FENT1PAT17 TP; +FENT1PAT19 TD; +FENT1PAT21 TD; +FENT1PAT91 TD; +FURO20TA3 PO; +FURO40TA4 PO; +Fentanyl TD; +HYDR25TA9 PO; +HYDR2DIS IJ; +HYDR2TAB PO; +HYDR2TAB31 PO; +HYDR4TAB PO; +HYDR4TAB45 PO; +HYOS0.12 PO; +LEVO250T25 PO; +LEVO750T31 PO; +LEVO750T5 PO; +LIDO35.4 TP; -LIDOCAINE 1% PF 2 ML VIAL. ID; +LORA-434 PO; +LORA0.5T PO; +MELA1TAB13 PO; +METO10TA81 PO; +ONDA4DIS4 IJ; +ONDA4TAB10 PO; +ONDA4TAB10 SL; +ONDA4TAB12 PO; +ONDA8TAB9 PO; -ONDANSETRON PF 4 MG/2 ML VIAL. IV; +PANT40TA3 PO; +PANT40TA5 PO; +PHEN-444 PO; -PROCHLORPERAZINE 10 MG/2 ML VIAL. IV; -PROPOFOL 20 ML IV; +SERT50TA PO; +SERT50TA8 PO; +SIME180C4 PO; +SIME80TA PO; +SODI20VI2 IV; +SULF1TAB24 PO; +ZINC56.7 TP; +ZOLP5TAB PO; -fentaNYL PF VIAL 100 MCG/2 ML VIAL IV
[2018-03-05 22:58] LABS: BILIRUBIN,URINE NEGATIVE (NEG); CLARITY,URINE CLOUDY; COLOR,URINE YELLOW; NITRITE,URINE POSITIVE (NEG); PROTEIN,URINE 30 mg/dL (NEG-TRACE); UROBILINOGEN,URINE 0.2 mg/dL (0.2 mg/dL)
[2018-03-05 23:07] LABS: BACTERIA,URINE MANY /HPF (0-FEW); SQUAMOUS EPITHELIAL CELL,UR MANY /LPF; WBC,URINE TNTC /HPF (0-4)
[2018-03-05] MEDS ORDERED: IV NORMAL SALINE 1000ML BAG 1,000 ML IV ONE (23:15)
[2018-03-05] MEDS ORDERED: fentaNYL PF VIAL 100 MCG/2 ML VIAL IV ONE (23:15)
--- NOTE | 2018-03-05 23:16 | PHYS DOC ---
Past Medical History Past Medical History: Anxiety, Cancer, Diverticulitis, Hypertension, UTI, Other Additional Past Medical Histor: abd pain,septicemia, Vesicoenteric fistula, cervical CA; blood clot in [place] Past Surgical History: Hysterectomy, Other Additional Past Surgical Histo: bowel resection, ab fistula Alcohol Use: None Drug Use: None Adult General Chief Complaint Chief Complaint: MULTIPLE COMPLAINTS HPI HPI Patient is a 62 year old female who presents with fever, nausea , vomiting, urinary frequency and urgency.. Notes she has had a fever of about 101F intermittently for the past 5 days. She vomited 2 times today. She states she thinks the vomit was bilious, but nonbloody. She denies headache, dizziness , cough, congestion, rhinorrhea, sore throat, dysuria, hematuria, or flank pain. She also endorses worsening pain around her vesicoenteric fistula and notes that the surrounding area is erythematous. She rates the pain as a 10/10 and describes it as a sharp pressure. She took ibuprofen about 4.5 hours ago, which she states has brought down her fever. She notes that she has pain medication at home for the chronic pain associated with her fistula. Review of Systems Review of Systems Constitutional: Notes fever and chills Eyes: Denies change in visual acuity, redness, or eye pain HENT: Denies nasal congestion or sore throat Respiratory: Denies cough or shortness of breath Cardiovascular: Denies chest pain or heart palpitations GI: Notes abdominal pain, nausea, vomiting, vesicoenteric fistula pain; Denies diarrhea or constipation : Notes urinary frequency and urgency; Denies dysuria or hematuria Musculoskeletal: Denies back pain or joint pain Integument: Denies rash or skin lesions Neurologic: Denies headache, focal weakness or sensory changes Complete systems were reviewed and found to be within normal limits, except as documented in this note Family History Family History Noncontributory Current Medications Current Medications Current Medications Medications (Trade) Dose Ordered Sig/Alex Start Time Stop Time Status Last Admin Dose Admin Amino Acids/ Glycerin/ Electrolytes 1,000 ml @ 80 mls/hr [id number] 03/06/18 00:10 UNV Aspirin (Elma Aspirin) 325 mg 1X ONCE 03/06/18 00:30 03/06/18 00:31 Ceftriaxone Sodium 1 gm/ Dextrose 50 ml @ 100 mls/hr Q24H 03/05/18 23:15 UNV Ceftriaxone Sodium 50 ml @ 100 mls/hr 1X ONCE 03/05/18 23:30 03/05/18 23:59 DC 03/05/18 23:47 100 MLS/HR Ceftriaxone Sodium (Rocephin) 1 gm Q24H 03/06/18 21:00 Cancel Fentanyl Citrate (Fentanyl 2ml Vial) 50 mcg PRN Q2HR PRN 03/06/18 00:15 03/07/18 00:14 Hydromorphone HCl (Dilaudid) 2 mg PRN Q6HRS PRN 03/06/18 00:15 Info (Tpn Per Pharmacy) 1 each PRN DAILY PRN 03/06/18 00:15 UNV Ondansetron HCl (Zofran) 4 mg PRN Q8HRS PRN 03/06/18 00:15 03/07/18 00:14 Potassium Chloride (Klor-Con) 40 meq 1X ONCE 03/06/18 00:30 03/06/18 00:31 Sodium Chloride 1,000 ml @ 1,000 mls/hr 1X ONCE 03/05/18 23:15 03/06/18 00:14 DC 03/05/18 23:47 1,000 MLS/HR famotidine, sertraline, fentanyl transdermal patch, lorazepam, dilaudid, ondansetron Allergies Allergies Allergies Coded Allergies Type Severity Reaction Last Updated Verified Iodinated Contrast- Oral and IV Dye Allergy Severe Anaphylaxis 09/14/17 Yes vancomycin Allergy Severe Swelling 09/14/17 Yes adhesive tape Allergy Intermediate Rash 09/14/17 Yes silver Allergy Intermediate Rash, Tegaderm film, can have on abd but no where else 09/14/17 Yes codeine Adverse Reaction Severe Nausea and Vomiting 09/14/17 Yes Physical Exam Physical Exam Constitutional: Well developed, well nourished, no acute distress HENT: Normocephalic, atraumatic, oropharynx moist, no oral exudates, nose normal Eyes: Conjunctiva normal, no discharge Neck: Normal range of motion, no tenderness, supple Cardiovascular: Heart rate regular rhythm, no murmur Lungs & Thorax: Bilateral breath sounds clear to auscultation Abdomen: large vesicoenteric fistula present, erythematous and draining yellow material, tender to palpation Skin: Warm, dry, no rash Back: No tenderness, no CVA tenderness Extremities: No tenderness, ROM intact, no edema Neurologic: Alert and oriented X 3, normal motor function, normal sensory function, no focal deficits noted Psychologic: Affect normal, judgement normal, mood normal Current Patient Data Vital Signs Vital Signs Date Time Temp Pulse Resp B/P (MAP) Pulse Ox O2 Delivery O2 Flow Rate FiO2 03/05/18 22:25 98.1 90 18 149/85 (106) 100 Room Air 98.1 Lab Values Laboratory Tests Test 03/05/18 22:30 03/05/18 23:00 Urine Collection Type Void Urine Color Yellow Urine Clarity Cloudy Urine pH 6.0 Urine Specific [place] 1.020 Urine Protein 30 mg/dL (NEG-TRACE) Urine Glucose (UA) Negative mg/dL (NEG) Urine Ketones (Stick) Negative mg/dL (NEG) Urine Blood Small (NEG) Urine Nitrite Positive (NEG) Urine Bilirubin Negative (NEG) Urine Urobilinogen Dipstick 0.2 mg/dL (0.2 mg/dL) Urine Leukocyte Esterase Large (NEG) Urine RBC 6-10 /HPF (0-2) Urine WBC Tntc /HPF (0-4) Urine Squamous Epithelial Cells Many /LPF Urine Bacteria Many /HPF (0-FEW) White Blood Count 6.1 x10^3/uL (4.0-11.0) Red Blood Count 4.01 x10^6/uL (3.50-5.40) Hemoglobin 10.7 g/dL (12.0-15.5) L Hematocrit 32.5 % (36.0-47.0) L Mean Corpuscular Volume 81 fL (79-100) Mean Corpuscular Hemoglobin 27 pg (25-35) Mean Corpuscular Hemoglobin Concent 33 g/dL (31-37) Red Cell Distribution Width 17.4 % (11.5-14.5) H Platelet Count 283 x10^3/uL (140-400) Neutrophils (%) (Auto) 54 % (31-73) Lymphocytes (%) (Auto) 22 % (24-48) L Monocytes (%) (Auto) 10 % (0-9) H Eosinophils (%) (Auto) 12 % (0-3) H Basophils (%) (Auto) 3 % (0-3) Neutrophils # (Auto) 3.3 x10^3uL (1.8-7.7) Lymphocytes # (Auto) 1.4 x10^3/uL (1.0-4.8) Monocytes # (Auto) 0.6 x10^3/uL (0.0-1.1) Eosinophils # (Auto) 0.7 x10^3/uL (0.0-0.7) Basophils # (Auto) 0.2 x10^3/uL (0.0-0.2) Prothrombin Time 14.2 SEC (11.7-14.0) H Prothrombin Time INR 1.2 (0.8-1.1) H PTT 31 SEC (24-38) Sodium Level 139 mmol/L (136-145) Potassium Level 3.1 mmol/L (3.5-5.1) L Chloride Level 102 mmol/L (98-107) Carbon Dioxide Level 26 mmol/L (21-32) Anion Gap 11 (6-14) Blood Urea Nitrogen 16 mg/dL (7-20) Creatinine 0.6 mg/dL (0.6-1.0) Estimated GFR (Cockcroft-Gault) 122.6 BUN/Creatinine Ratio 27 (6-20) H Glucose Level 111 mg/dL (70-99) H Lactic Acid Level 1.5 mmol/L (0.4-2.0) Calcium Level 8.7 mg/dL (8.5-10.1) Magnesium Level 1.5 mg/dL (1.8-2.4) L Total Bilirubin 0.3 mg/dL (0.2-1.0) Aspartate Amino Transferase (AST) 16 U/L (15-37) Alanine Aminotransferase (ALT) 15 U/L (14-59) Alkaline Phosphatase 133 U/L (46-116) H Creatine Kinase 28 U/L (26-192) Troponin I Quantitative < 0.017 ng/mL (0.000-0.055) Total Protein 8.0 g/dL (6.4-8.2) Albumin 2.7 g/dL (3.4-5.0) L Albumin/Globulin Ratio 0.5 (1.0-1.7) L Lipase 214 U/L (73-393) Laboratory Tests 03/05/18 23:00 Laboratory Tests 03/05/18 23:00 EKG EKG @ 23:12, normal sinus rhythm at 89bpm, slight ST elevations in V3 and V6, no reciprocal changes, doubt ischemic etiology Radiology/Procedures Radiology/Procedures CT abdomen and pelvis: Limited exam due to lack of IV contrast. 1. No bowel obstruction. 2. Large amount of stool in the distal colon, patient may be constipated. 3. Stable appearing multiple anastomotic sutures in the abdomen from previous multiple bowel surgeries. No evidence of pneumoperitoneum. 4. Stable nodular soft tissue along the left lower omentum dating back to at least 2016, nonspecific and may represent granulation tissue, lymph nodes or metastatic implants if there is history of malignancy. Course & Med Decision Making Course & Med Decision Making Patient is a 62 year old female who presents with fever, nausea , vomiting, urinary frequency and urgency. She also notes increased pain associated with her vesicoenteric fistula rated as a 10/10. She also endorsed some chest pain. Pertinent labs and imaging studies obtained and reviewed (see chart for details). A 12-lead EKG @ 23:12 showed normal sinus rhythm at 89bpm with slight ST elevations in V3 and V6 and no reciprocal changes. Doubt ischemic etiology. Urinalysis showed cloudy urine with positive nitrites, urine WBC tntc, large leukocyte esterase, and positive urine blood. Urine will be sent for culture. High suspicion for UTI. Patient will be started on Rocephin. She was given her first dose in the ED. She was given IV fluids, aspirin, and IV fentanyl for her pain. CT of the abdomen and pelvis was a limited exam due to lack of IV contrast. Indicates no bowel obstruction, but large amount of stool in the distal colon, patient may be constipated. Patient requiring admission for further evaluation and treatment for her UTI. Discussed with Dr. Cisneros who is in agreement with admission. Per Dr. Cisneros's instructions, TPN was ordered for the patient. Dilaudid was ordered if needed as well. Discussed findings and plan with patient and family, who acknowledge understanding and agreement. Dragon Disclaimer Dragon Disclaimer This electronic medical record was generated, in whole or in part, using a voice recognition dictation system. Departure Departure Impression: Primary Impression: UTI (urinary tract infection) Additional Impressions: Chest pain Hypokalemia Vesicoenteric fistula Disposition: ADMITTED INPATIENT Admitting Physician: Roderick Cisneros Condition: STABLE Referrals: RODERICK CISNEROS MD (PCP) Problem Qualifiers Primary Impression: UTI (urinary tract infection) Urinary tract infection type: acute cystitis Hematuria presence: without hematuria Qualified Codes: N30.00 - Acute cystitis without hematuria Additional Impressions: Chest pain Chest pain type: unspecified Qualified Codes: R07.9 - Chest pain, unspecified RODERICK JARAMILLO DO Mar 05, 2018 23:16
[2018-03-05 23:33] LABS: BASO # 0.2 x10^3/uL (0.0-0.2); BASO % 3 % (0-3); EOS # 0.7 x10^3/uL (0.0-0.7); EOS % 12 % (0-3); HEMATOCRIT 32.5 % (36.0-47.0); HEMOGLOBIN 10.7 g/dL (12.0-15.5); LYMPH # 1.4 x10^3/uL (1.0-4.8); LYMPH % 22 % (24-48); MEAN CORPUSCULAR HEMOGLOBIN 27 pg (25-35); MEAN CORPUSCULAR HGB CONC 33 g/dL (31-37); MEAN CORPUSCULAR VOLUME 81 fL (79-100); MONO # 0.6 x10^3/uL (0.0-1.1); MONO % 10 % (0-9); NEUT # 3.3 x10^3uL (1.8-7.7); NEUT % 54 % (31-73); PLATELET COUNT 283 x10^3/uL (140-400); RED BLOOD COUNT 4.01 x10^6/uL (3.50-5.40); RED CELL DISTRIBUTION WIDTH 17.4 % (11.5-14.5); WHITE BLOOD COUNT 6.1 x10^3/uL (4.0-11.0)
[2018-03-05 23:36] LABS: CALCIUM 8.7 mg/dL (8.5-10.1); CREATININE 0.6 mg/dL (0.6-1.0); GFR 122.6; POTASSIUM 3.1 mmol/L (3.5-5.1)
[2018-03-05 23:37] LABS: PROTHROMBIN TIME PATIENT 14.2 SEC (11.7-14.0)
[2018-03-05 23:42] LABS: ALBUMIN 2.7 g/dL (3.4-5.0); ALBUMIN/GLOBULIN RATIO 0.5 (1.0-1.7); MAGNESIUM 1.5 mg/dL (1.8-2.4); TOTAL BILIRUBIN 0.3 mg/dL (0.2-1.0)
--- NOTE | 2018-03-05 23:52 | RAD ---
PQRS Compliance statement: One or more of the following individualized dose reduction techniques were utilized for this examination: 1. Automated exposure control. 2. Adjustment of the mA and/or kV according to patient size. 3. Use of iterative reconstruction technique. Indication:ABD PAIN; HX FISTULA TECHNIQUE: CT abdomen and pelvis without IV contrast with multiplanar reformats. COMPARISON: 02/12/2017 FINDINGS: Limited evaluation of solid abdominal and pelvic organs due to lack of IV contrast. Heart is normal in size. Clear lung bases. Noncontrast appearance of the liver, spleen, pancreas, adrenals within normal limits. Status post cholecystectomy. No nephrolithiasis or hydronephrosis. No bowel obstruction. Multiple anastomotic sutures are seen in the bowel. No evidence of pneumoperitoneum. Bilateral likely pelvic lymph node dissection. Redemonstrated is a ill-defined nodular soft tissue along the left omental surface in the left pelvis. Anterior midline abdominal wall surgical scar. No free pelvic fluid or ascites. Urinary bladder demonstrates no radiopaque stones. Status post hysterectomy. Large amount of stool is seen in the distal colon. No suspicious bony lesion. IMPRESSION: Limited exam due to lack of IV contrast. 1. No bowel obstruction. 2. Large amount of stool in the distal colon, patient may be constipated. 3. Stable appearing multiple anastomotic sutures in the abdomen from previous multiple bowel surgeries. No evidence of pneumoperitoneum. 4. Stable nodular soft tissue along the left lower omentum dating back to at least 2016, nonspecific and may represent granulation tissue, lymph nodes or metastatic implants if there is history of malignancy. Electronically signed by: Erasmo Arellano DO (03/05/2018 11:48 PM) [facility]
[2018-03-06] MEDS ORDERED: ONDANSETRON PF 4 MG/2 ML VIAL. IV PRN (00:15)
[2018-03-06] MEDS ORDERED: fentaNYL PF VIAL 100 MCG/2 ML VIAL IV PRN (00:15)
[2018-03-06] MEDS ORDERED: HYDROmorphone 2 MG TABLET PO PRN (00:15)
[2018-03-06 00:29] LABS: PHOSPHORUS 3.3 mg/dL (2.6-4.7)
[2018-03-06] MEDS ORDERED: POTASSIUM CHLORIDE 20 MEQ TABLET.ER. PO ONE (00:30)
[2018-03-06] MEDS ORDERED: ASPIRIN 325 MG TABLET PO ONE (00:30)
[2018-03-06] MEDS ORDERED: POTASSIUM CHLORIDE 20 MEQ/15 ML ORAL LIQUID. ONE (01:22)
[2018-03-06 01:35] VITALS: BP 151/87
[2018-03-06] MEDS: AMINO AC 3%/ELECTROLYTE/GLYCER 1,000 ML IV SCH ×2 (02:23→14:00)
[2018-03-06] MEDS ORDERED: INFLUENZA VAX SCREEN BY RX. MC PRN (03:15)
[2018-03-06 07:00] VITALS: BP 139/93
[2018-03-06] MEDS ORDERED: ZOLPIDEM 5 MG TABLET. PO PRN (10:45)
[2018-03-06] MEDS ORDERED: ACETAMINOPHEN 325 MG TABLET. PO PRN (10:45)
[2018-03-06] MEDS ORDERED: diphenhydrAMINE HCL 25 MG CAPSULE PO PRN (10:45)
[2018-03-06] MEDS ORDERED: LORazepam 0.5 MG TABLET PO PRN (10:45)
[2018-03-06 11:00] VITALS: BP 130/68
--- NOTE | 2018-03-06 11:03 | PDOC ---
Provider Note Provider Note history and physical dictated # [id number] BENITA LUTZ MD Mar 06, 2018 11:03
[2018-03-06] MEDS: HYDROmorphone 2 MG/ML VIAL IV PRN ×2 (11:13→21:28)
[2018-03-06] MEDS: PIPERACILLIN/TAZOBACTAM 3.375 GM in IV NORMAL SALINE 50ML 50 ML IV SCH ×3 (11:13→23:16)
--- NOTE | 2018-03-06 11:22 | HP ---
ADMIT DATE: 03/06/2018 LOCATION: She is in room 530. HISTORY OF PRESENT ILLNESS: The patient is a 62-year-old female with history of enterocutaneous fistula and enterovesical fistula maintained on home total parenteral nutrition, who was admitted to [facility] through the Emergency Room on 03/06/2018 with a fever of 101 degrees and also chest pain lasting about an hour, and also some vomiting and dysuria. She was actually seen in the office on 03/03/2018 and had dysuria, and a urinalysis and urine culture was ordered, and she was started on Levaquin 250 mg p.o. daily for a 7-day course of treatment realizing she does have an enterovesical fistula. The patient, however, developed the aforementioned symptoms including vomiting and sought help in the [facility] Emergency Room. In the Emergency Room, she had a urinalysis, urine culture and blood culture ordered. Initial troponin level that was done, which was negative and had another one done that was negative also. Her white count was normal at 6.1. Her temperature was normal. The patient also had an EKG ordered, but I cannot find it on the electronic medical records. She developed an hour's worth of chest discomfort without any radiation or diaphoresis and it eventually resolved. She was just knitting at the time. It was not exertional. She is therefore admitted for further evaluation of her fever, dysuria, vomiting and chest discomfort. ALLERGIES AND INTOLERANCES: INCLUDE IV IODINE, ORAL IODINE, ADHESIVE TAPE, CODEINE, SILVER, AND VANCOMYCIN. MEDICATIONS: Prior to admission include Dilaudid 2 mg p.o. q.i.d. p.r.n., Protonix 40 mg every day, fentanyl 25 mcg patch every 72 hours, Lidoderm ointment followed by zinc oxide b.i.d. to protect her abdominal wall with her enterocutaneous fistula, lorazepam 0.5 mg p.o. every 6 hours p.r.n., melatonin 3 mg at bedtime, sertraline 50 mg every day, Tylenol 325 mg 1-2 every 4 hours p.r.n., and Zofran 4 mg p.o. every 6 hours p.r.n. She is also on TPN at home. PAST MEDICAL HISTORY: Significant for the enterocutaneous fistula and enterovesical fistula. She also has a history of hypertension, urinary tract infection in the past. Abdominal pain secondary to adhesions from previous surgery, reflux esophagitis. She also has had depression and diverticulosis, esophagitis and gastritis in 2012, peptic ulcer disease. She has had recurrent sepsis. She does have a PICC line for total parenteral nutrition. She has had 5 abdominal procedures to reverse her enterocutaneous fistula and all of which have failed. SOCIAL HISTORY: She does not drink alcohol nor does she smoke cigarettes. She is on home total parenteral nutrition. FAMILY HISTORY: Noncontributory. REVIEW OF SYSTEMS: GENERAL: She did have the fever. CARDIOVASCULAR: The chest pain. PULMONARY: No cough. GASTROINTESTINAL: She had some vomiting. ENDOCRINE: No diabetes mellitus. SKIN: No rashes. The rest of systems reviewed are negative except for stated in history of present illness. PHYSICAL EXAMINATION: VITAL SIGNS: Temperature is 98.6 degrees, apical pulse 83, respiratory rate 18, blood pressure 139/93, oxygen saturation 100% on room air. HEENT: Eyes: Gaze is conjugate. Mouth: Tongue is midline. NECK: There is no cervical lymphadenopathy or thyroid enlargement. HEART: Reveals an S1, S2. There is no S3 or murmur. LUNGS: Clear. ABDOMEN: Soft, bowel sounds positive, not distended. She has got enterocutaneous fistula, some erythema in the abdominal wall, which she has had before from the enterocutaneous fistula irritating the abdominal wall. EXTREMITIES: Lower extremities without edema. SKIN: No rashes. NEUROLOGIC: She is coherent with no focal weakness in arms or legs. LINES: She also has a PICC line in the right anterior chest. LABORATORY DATA: White count 6.1, hemoglobin 10.7, the platelet count is 283,000, 54 polys and 22 lymphocytes. INR 1.2, PTT of 31. Sodium 139, potassium 3.1, chloride 102, total CO2 of 26, BUN 16, creatinine 0.6, magnesium 1.5. Blood sugar was 111. CPK was 28. Troponin level negative x 2. Albumin 2.7, lipase 214, triglycerides 82. She had a CAT scan of the abdomen and pelvis done without IV contrast. It showed no bowel obstruction, large amount of stool in the distal colon. She had stable appearing multiple anastomotic sutures in the abdomen, has a stable nodular soft tissue area in the left lower omentum, which is unchanged at least from 04/2017. ASSESSMENT: 1. Fever. 2. Dysuria. 3. Chest pain. 4. Enterocutaneous fistula. 5. Enterovesical fistula. 6. Hypokalemia. 7. Hypomagnesemia. 8. Anemia of chronic disease. 9. Severe protein-calorie malnutrition. PLAN: At this time is to consult Dr. Keith for Infectious Disease and Dr. Nicholas for Cardiology. Blood cultures and urine cultures were ordered in the Emergency Room. She did receive IV Rocephin in the Emergency Room, but we will start her on IV Zyvox and IV Zosyn. We will also get a chest x-ray. Wait for the EKG to be placed on the chart. We will order an echocardiogram. We will order SCDs for deep vein thrombosis prophylaxis. Give her IV magnesium sulfate and IV potassium chloride. I spoke with the pharmacist, she will get her TPN same formula as last admission, and repeat her labs again tomorrow including a CBC, BMP and magnesium level. We will order some p.r.n. Zofran for the nausea and vomiting, and order some analgesics. Continue fentanyl patch and IV Dilaudid p.r.n. for pain control. Give her topical treatment for her enterocutaneous fistula to protect the abdominal wall from the contents of the enterocutaneous fistula. BENITA LUTZ MD DR: NABILA/jd JOB#: [id number] / [id number]
[2018-03-06] MEDS ORDERED: MAGNESIUM SULFATE 2GM 50 ML IV ONE (12:00)
[2018-03-06] MEDS: POTASSIUM CHLORIDE 20MEQ 50 ML IV SCH ×2 (12:00→14:03)
[2018-03-06] MEDS: TPN PER PHARMACY MC PRN ×2 (13:57→14:07)
[2018-03-06] MEDS: PANTOPRAZOLE 40 MG TABLET.DR. PO SCH (13:59)
[2018-03-06] MEDS: SERTRALINE 50 MG TABLET. PO SCH (13:59)
[2018-03-06] MEDS: fentaNYL 25MCG/HR PATCH 1 PATCH PATCH.TD72 TD SCH (14:01)
[2018-03-06] MEDS: ZINC OXIDE 20% TOPICAL OINTMENT 28GM TUBE. TP SCH ×2 (14:01→21:06)
[2018-03-06] MEDS: LIDOCAINE 5% TOPICAL OINTMENT 35GM TUBE. TP SCH ×2 (14:02→21:06)
--- NOTE | 2018-03-06 14:27 | RAD ---
AP chest. HISTORY: Fever AP view was taken of the chest. Lungs are clear. Heart is normal in size without heart failure. There is a central line in good position, unchanged. There is no effusion. IMPRESSION: 1. No new infiltrates. Electronically signed by: Ambrosio Rasmussen MD (03/06/2018 2:24 PM) [facility]
[2018-03-06 15:00] VITALS: BP 131/76
[2018-03-06 19:00] VITALS: BP 123/63
[2018-03-06] MEDS ORDERED: cefTRIAXone IV Push 1 GM VIAL. IVP SCH (21:00)
[2018-03-06] MEDS: NYSTATIN 100,000 UNIT/GM TOPICAL CREAM 15GM TUBE. TP SCH (21:06)
--- NOTE | 2018-03-06 21:22 | EKG ---
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
[2018-03-06] MEDS ORDERED: DEXTROSE 70% IV SCH ×10 (22:00)
[2018-03-06] MEDS ORDERED: [UNRECOGNIZED DRUG - OTHER] IV SCH ×10 (22:00)
[2018-03-06] MEDS ORDERED: TOTAL PARENTERAL NUTRITION IV SCH ×10 (22:00)
[2018-03-06] MEDS ORDERED: AMINO ACIDS IV SCH ×10 (22:00)
[2018-03-06 22:58] VITALS: BP 128/77
[2018-03-07] MEDS: ONDANSETRON ODT 4 MG TAB.RAPDIS. PO PRN ×2 (02:28→19:24)
[2018-03-07 03:00] VITALS: BP 116/62
[2018-03-07] MEDS: PIPERACILLIN/TAZOBACTAM 3.375 GM in IV NORMAL SALINE 50ML 50 ML IV SCH ×4 (05:26→23:08)
[2018-03-07 05:58] LABS: CALCIUM 8.6 mg/dL (8.5-10.1); CREATININE 0.5 mg/dL (0.6-1.0); GFR 151.3; MAGNESIUM 2.5 mg/dL (1.8-2.4); POTASSIUM 4.9 mmol/L (3.5-5.1)
[2018-03-07 06:03] LABS: BASO # 0.1 x10^3/uL (0.0-0.2); BASO % 3 % (0-3); EOS # 0.4 x10^3/uL (0.0-0.7); EOS % 13 % (0-3); HEMATOCRIT 29.2 % (36.0-47.0); HEMOGLOBIN 9.6 g/dL (12.0-15.5); LYMPH # 0.6 x10^3/uL (1.0-4.8); LYMPH % 17 % (24-48); MEAN CORPUSCULAR HEMOGLOBIN 27 pg (25-35); MEAN CORPUSCULAR HGB CONC 33 g/dL (31-37); MEAN CORPUSCULAR VOLUME 82 fL (79-100); MONO # 0.3 x10^3/uL (0.0-1.1); MONO % 10 % (0-9); NEUT # 1.9 x10^3uL (1.8-7.7); NEUT % 57 % (31-73); PLATELET COUNT 244 x10^3/uL (140-400); RED BLOOD COUNT 3.56 x10^6/uL (3.50-5.40); WHITE BLOOD COUNT 3.4 x10^3/uL (4.0-11.0)
[2018-03-07 07:00] VITALS: BP 114/66
[2018-03-07] MEDS: SERTRALINE 50 MG TABLET. PO SCH (09:49)
[2018-03-07] MEDS: PANTOPRAZOLE 40 MG TABLET.DR. PO SCH (09:49)
[2018-03-07] MEDS: HYDROmorphone 2 MG/ML VIAL IV PRN ×3 (09:54→20:39)
[2018-03-07] MEDS: NYSTATIN 100,000 UNIT/GM TOPICAL CREAM 15GM TUBE. TP SCH ×2 (09:54→20:36)
[2018-03-07] MEDS: ZINC OXIDE 20% TOPICAL OINTMENT 28GM TUBE. TP SCH ×2 (09:54→20:36)
[2018-03-07] MEDS: LIDOCAINE 5% TOPICAL OINTMENT 35GM TUBE. TP SCH ×2 (09:54→20:36)
--- NOTE | 2018-03-07 10:09 | PDOC ---
PROGRESS NOTES Subjective Subjective feels better. less urine pressure. afebrile. lab reviewed potassium and magnesium and wbc okay. blood culture neg so far. echo done today. troponin negative. ekg without acute change. Objective Objective Vital Signs Date Time Temp Pulse Resp B/P (MAP) Pulse Ox O2 Delivery O2 Flow Rate FiO2 03/07/18 09:54 Room Air 03/07/18 07:00 96.6 73 18 114/66 (82) 100 96.6 Intake and Output 03/07/18 07:00 Intake Total 1790 ml Output Total 600 ml Balance 1190 ml Intake Oral 340 ml IV Total 1450 ml Output Urine Total 600 ml # Voids 6 Physical Exam Abdomen: Soft Heart: Regular rate, Normal S1, Normal S2 Extremities: No edema General: Alert HEENT: Atraumatic Lungs: Clear to auscultation Neuro: Normal speech Psych/Mental Status: Mental status NL Skin: No rashes Assessment Assessment Problems1. Fever. currently resolved 2. Dysuria. 3. Chest pain. 4. Enterocutaneous fistula. 5. Enterovesical fistula. 6. Hypokalemia. resolved 7. Hypomagnesemia. resolved 8. Anemia of chronic disease. 9. Severe protein-calorie malnutrition. Medical Problems: (1) Vesicoenteric fistula Status: Acute Plan Plan of Care await final blood and urine culture urine culture will be positive due to enterovesical fistula continue iv zyvox and zosyn continue TPN lab tomorrow ID and cardiology consults await echo report Comment Review of Relevant I have reviewed the following items lucila (where applicable) has been applied. Labs Laboratory Tests Test 03/05/18 22:30 03/05/18 23:00 03/06/18 00:01 03/06/18 02:20 Urine Collection Type Void Urine Color Yellow Urine Clarity Cloudy Urine pH 6.0 Urine Specific [place] 1.020 Urine Protein 30 mg/dL (NEG-TRACE) Urine Glucose (UA) Negative mg/dL (NEG) Urine Ketones (Stick) Negative mg/dL (NEG) Urine Blood Small (NEG) Urine Nitrite Positive (NEG) Urine Bilirubin Negative (NEG) Urine Urobilinogen Dipstick 0.2 mg/dL (0.2 mg/dL) Urine Leukocyte Esterase Large (NEG) Urine RBC 6-10 /HPF (0-2) Urine WBC Tntc /HPF (0-4) Urine Squamous Epithelial Cells Many /LPF Urine Bacteria Many /HPF (0-FEW) White Blood Count 6.1 x10^3/uL (4.0-11.0) Red Blood Count 4.01 x10^6/uL (3.50-5.40) Hemoglobin 10.7 g/dL (12.0-15.5) Hematocrit 32.5 % (36.0-47.0) Mean Corpuscular Volume 81 fL (79-100) Mean Corpuscular Hemoglobin 27 pg (25-35) Mean Corpuscular Hemoglobin Concent 33 g/dL (31-37) Red Cell Distribution Width 17.4 % (11.5-14.5) Platelet Count 283 x10^3/uL (140-400) Neutrophils (%) (Auto) 54 % (31-73) Lymphocytes (%) (Auto) 22 % (24-48) Monocytes (%) (Auto) 10 % (0-9) Eosinophils (%) (Auto) 12 % (0-3) Basophils (%) (Auto) 3 % (0-3) Neutrophils # (Auto) 3.3 x10^3uL (1.8-7.7) Lymphocytes # (Auto) 1.4 x10^3/uL (1.0-4.8) Monocytes # (Auto) 0.6 x10^3/uL (0.0-1.1) Eosinophils # (Auto) 0.7 x10^3/uL (0.0-0.7) Basophils # (Auto) 0.2 x10^3/uL (0.0-0.2) Prothrombin Time 14.2 SEC (11.7-14.0) Prothromb Time International Ratio 1.2 (0.8-1.1) Activated Partial Thromboplast Time 31 SEC (24-38) Sodium Level 139 mmol/L (136-145) Potassium Level 3.1 mmol/L (3.5-5.1) Chloride Level 102 mmol/L (98-107) Carbon Dioxide Level 26 mmol/L (21-32) Anion Gap 11 (6-14) Blood Urea Nitrogen 16 mg/dL (7-20) Creatinine 0.6 mg/dL (0.6-1.0) Estimated GFR (Cockcroft-Gault) 122.6 BUN/Creatinine Ratio 27 (6-20) Glucose Level 111 mg/dL (70-99) Lactic Acid Level 1.5 mmol/L (0.4-2.0) Calcium Level 8.7 mg/dL (8.5-10.1) Magnesium Level 1.5 mg/dL (1.8-2.4) Total Bilirubin 0.3 mg/dL (0.2-1.0) Aspartate Amino Transf (AST/SGOT) 16 U/L (15-37) Alanine Aminotransferase (ALT/SGPT) 15 U/L (14-59) Alkaline Phosphatase 133 U/L (46-116) Creatine Kinase 28 U/L (26-192) Troponin I Quantitative < 0.017 ng/mL (0.000-0.055) Total Protein 8.0 g/dL (6.4-8.2) Albumin 2.7 g/dL (3.4-5.0) Albumin/Globulin Ratio 0.5 (1.0-1.7) Lipase 214 U/L (73-393) Phosphorus Level 3.3 mg/dL (2.6-4.7) Triglycerides Level 82 mg/dL (0-150) Nasal Screen MRSA (PCR) Negative (Negative) Test 03/06/18 04:00 03/07/18 05:30 Troponin I Quantitative < 0.017 ng/mL (0.000-0.055) < 0.017 ng/mL (0.000-0.055) White Blood Count 3.4 x10^3/uL (4.0-11.0) Red Blood Count 3.56 x10^6/uL (3.50-5.40) Hemoglobin 9.6 g/dL (12.0-15.5) Hematocrit 29.2 % (36.0-47.0) Mean Corpuscular Volume 82 fL (79-100) Mean Corpuscular Hemoglobin 27 pg (25-35) Mean Corpuscular Hemoglobin Concent 33 g/dL (31-37) Red Cell Distribution Width 18.0 % (11.5-14.5) Platelet Count 244 x10^3/uL (140-400) Neutrophils (%) (Auto) 57 % (31-73) Lymphocytes (%) (Auto) 17 % (24-48) Monocytes (%) (Auto) 10 % (0-9) Eosinophils (%) (Auto) 13 % (0-3) Basophils (%) (Auto) 3 % (0-3) Neutrophils # (Auto) 1.9 x10^3uL (1.8-7.7) Lymphocytes # (Auto) 0.6 x10^3/uL (1.0-4.8) Monocytes # (Auto) 0.3 x10^3/uL (0.0-1.1) Eosinophils # (Auto) 0.4 x10^3/uL (0.0-0.7) Basophils # (Auto) 0.1 x10^3/uL (0.0-0.2) Sodium Level 140 mmol/L (136-145) Potassium Level 4.9 mmol/L (3.5-5.1) Chloride Level 108 mmol/L (98-107) Carbon Dioxide Level 29 mmol/L (21-32) Anion Gap 3 (6-14) Blood Urea Nitrogen 12 mg/dL (7-20) Creatinine 0.5 mg/dL (0.6-1.0) Estimated GFR (Cockcroft-Gault) 151.3 Glucose Level 89 mg/dL (70-99) Calcium Level 8.6 mg/dL (8.5-10.1) Magnesium Level 2.5 mg/dL (1.8-2.4) Laboratory Tests Test 03/07/18 05:30 White Blood Count 3.4 x10^3/uL (4.0-11.0) Red Blood Count 3.56 x10^6/uL (3.50-5.40) Hemoglobin 9.6 g/dL (12.0-15.5) Hematocrit 29.2 % (36.0-47.0) Mean Corpuscular Volume 82 fL (79-100) Mean Corpuscular Hemoglobin 27 pg (25-35) Mean Corpuscular Hemoglobin Concent 33 g/dL (31-37) Red Cell Distribution Width 18.0 % (11.5-14.5) Platelet Count 244 x10^3/uL (140-400) Neutrophils (%) (Auto) 57 % (31-73) Lymphocytes (%) (Auto) 17 % (24-48) Monocytes (%) (Auto) 10 % (0-9) Eosinophils (%) (Auto) 13 % (0-3) Basophils (%) (Auto) 3 % (0-3) Neutrophils # (Auto) 1.9 x10^3uL (1.8-7.7) Lymphocytes # (Auto) 0.6 x10^3/uL (1.0-4.8) Monocytes # (Auto) 0.3 x10^3/uL (0.0-1.1) Eosinophils # (Auto) 0.4 x10^3/uL (0.0-0.7) Basophils # (Auto) 0.1 x10^3/uL (0.0-0.2) Sodium Level 140 mmol/L (136-145) Potassium Level 4.9 mmol/L (3.5-5.1) Chloride Level 108 mmol/L (98-107) Carbon Dioxide Level 29 mmol/L (21-32) Anion Gap 3 (6-14) Blood Urea Nitrogen 12 mg/dL (7-20) Creatinine 0.5 mg/dL (0.6-1.0) Estimated GFR (Cockcroft-Gault) 151.3 Glucose Level 89 mg/dL (70-99) Calcium Level 8.6 mg/dL (8.5-10.1) Magnesium Level 2.5 mg/dL (1.8-2.4) Troponin I Quantitative < 0.017 ng/mL (0.000-0.055) Microbiology 03/06/18 Blood Culture - Preliminary, Resulted NO GROWTH AFTER 1 DAY Medications Current Medications Sodium Chloride 1,000 ml @ 1,000 mls/hr 1X ONCE IV Last administered on at 23:47; Start 03/05/18 at 23:15; Stop 03/06/18 at 00:14; Status DC Fentanyl Citrate (Fentanyl 2ml Vial) 75 mcg 1X ONCE IV Last administered on at 23:46; Start 03/05/18 at 23:15; Stop 03/05/18 at 23:16; Status DC Ceftriaxone Sodium 1 gm/ Dextrose 50 ml @ 100 mls/hr Q24H IV ; Start 03/05/18 at 23:15; Status UNV Ceftriaxone Sodium 50 ml @ 100 mls/hr 1X ONCE IV ; Start 03/05/18 at 23:15; Stop 03/05/18 at 23:44; Status Cancel Ceftriaxone Sodium (Rocephin) 1 gm Q24H IVP ; Start 03/06/18 at 21:00; Status Cancel Ceftriaxone Sodium 50 ml @ 100 mls/hr 1X ONCE IV Last administered on at 23:47; Start 03/05/18 at 23:30; Stop 03/05/18 at 23:59; Status DC Info (Tpn Per Pharmacy) 1 each PRN DAILY PRN MC SEE COMMENTS Last administered on 03/06/18at 14:07; Start 03/06/18 at 00:15 Amino Acids/ Glycerin/ Electrolytes 1,000 ml @ 80 mls/hr [id number] IV Last administered on 03/06/18at 02:23; Start 03/06/18 at 01:30; Stop 03/06/18 at 21:59 ; Status DC Hydromorphone HCl (Dilaudid) 2 mg PRN Q6HRS PRN PO PAIN; Start 03/06/18 at 00: 15; Stop 03/06/18 at 10:54; Status DC Ondansetron HCl (Zofran) 4 mg PRN Q8HRS PRN IV NAUSEA/VOMITING Last administered on 03/06/18at 16:40; Start 03/06/18 at 00:15; Stop 03/07/18 at 00:14 ; Status DC Fentanyl Citrate (Fentanyl 2ml Vial) 50 mcg PRN Q2HR PRN IV PAIN Last administered on 03/06/18at 02:40; Start 03/06/18 at 00:15; Stop 03/07/18 at 00:14 ; Status DC Aspirin (Elma Aspirin) 325 mg 1X ONCE PO Last administered on 03/06/18at 00:33 ; Start 03/06/18 at 00:30; Stop 03/06/18 at 00:31; Status DC Potassium Chloride (Klor-Con) 40 meq 1X ONCE PO Last administered on at 01:14; Start 03/06/18 at 00:30; Stop 03/06/18 at 00:31; Status DC Potassium Chloride (KCl Oral Soln) 20 meq STK-MED ONCE .ROUTE ; Start 03/06/18 at 01:22; Stop 03/06/18 at 01:23; Status DC Influenza Virus Vaccine (Afluria Trivalent [id number] Syringe) 0.5 ml ONCE ONCE VAX IM Last administered on 03/06/18 13:59; Start 03/06/18 at 09:00; Stop at 09:01; Status DC Info (Do NOT chart on this placeholder) 1 each PRN 1X PRN MC SEE COMMENTS; Start 03/06/18 at 03:15; Status Cancel Linezolid/Dextrose 300 ml @ 300 mls/hr Q12HR IV Last administered on 09:50; Start 03/06/18 at 12:00 Piperacillin Sod/ Tazobactam Sod 3.375 gm/Sodium Chloride 50 ml @ 100 mls/hr Q6HRS IV Last administered on 03/07/18 05:26; Start 03/06/18 at 12:00 Acetaminophen (Tylenol) 650 mg PRN Q6HRS PRN PO MILD PAIN / TEMP; Start at 10:45 Sertraline HCl (Zoloft) 50 mg DAILY PO Last administered on 03/07/18 09:49; Start 03/06/18 at 12:00 Lorazepam (Ativan) 0.5 mg PRN Q6HRS PRN PO ANXIETY / AGITATION Last administered on 03/07/18 02:29; Start 03/06/18 at 10:45 Fentanyl (Duragesic 25mcg/ Hr Patch) 1 patch Q3DAYS TD Last administered on 14:01; Start 03/06/18 at 12:00 Ondansetron HCl (Zofran Odt) 4 mg PRN Q6HRS PRN PO NAUSEA/VOMITING Last administered on 03/07/18 02:28; Start 03/06/18 at 10:45 Hydromorphone HCl (Dilaudid) 2 mg PRN Q4HRS PRN IV PAIN; Start 03/06/18 at 10: 45 Hydromorphone HCl (Dilaudid) 4 mg PRN Q4HRS PRN IV PAIN Last administered on 09:54; Start 03/06/18 at 10:45 Diphenhydramine HCl (Benadryl) 25 mg PRN Q6HRS PRN PO ITCHING; Start 03/06/18 at 10:45 Pantoprazole Sodium (Protonix) 40 mg DAILYAC PO Last administered on 9/24/18at 09:49; Start 03/06/18 at 12:00 Zolpidem Tartrate (Ambien) 5 mg PRN QHS PRN PO INSOMNIA; Start 03/06/18 at 10: 45 Magnesium Sulfate 50 ml @ 25 mls/hr 1X ONCE IV Last administered on 03/06/18at 14:02; Start 03/06/18 at 12:00; Stop 03/06/18 at 13:59; Status DC Potassium Chloride/Water 50 ml @ 50 mls/hr Q1H IV Last administered on at 12:00; Start 03/06/18 at 11:00; Stop 03/06/18 at 12:59; Status DC Lidocaine (Xylocaine) 1 sang BID TP Last administered on 03/07/18 09:54; Start 03/06/18 at 12:00 Zinc Oxide (Zinc Oxide 20% Topical) 1 sang BID TP Last administered on at 09:54; Start 03/06/18 at 12:00 Sodium Chloride 210 meq/Potassium Chloride 60 meq/ Potassium Phosphate 6.8 mmol/ Magnesium Sulfate 32 meq/ Multivitamins 10 ml/Chromium/ Copper/Manganese/ Seleni /Zn 1 ml/ Potassium Acetate 20 meq/Total Parenteral Nutrition/Amino Acids/ Dextrose/ Fat Emulsion Intravenous 1,920 ml @ 80 mls/hr TPN CONT IV Last administered on 03/06/18at 21:07; Start 03/06/18 at 22:00; Stop 03/07/18 at 21:59 Nystatin (Mycostatin) 1 sang BID TP Last administered on 03/07/18at 09:54; Start 03/06/18 at 21:00 Active Scripts Active FENTANYL 25mcg/hr (Fentanyl) 1 Each Patch.td72 1 Patch TD Q72H 30 Days Sertraline Hcl 50 Mg Tablet 50 Mg PO DAILY 30 Days Famotidine 20 Mg Tablet 20 Mg PO BID 60 Days Lidocaine 35.44 Gm Oint...g. 1 Sang TP BID Reported Zofran Odt (Ondansetron) 4 Mg Tab.rapdis 1 Tab SL PRN Q8HRS PRN Zinc Oxide 56.7 Gm Oint...g. 56.7 Gm TP PRN BID Dilaudid (Hydromorphone Hcl) 2 Mg Tablet 1 Tab PO PRN QID PRN Lorazepam 0.5 Mg Tablet 0.5 Mg PO Q6HRS PRN Vitals/I & O Vital Sign - Last 24 Hours 03/06/18 03/06/18 03/06/18 03/06/18 11:00 11:13 14:01 15:00 Temp 98.4 97.4 98.4 97.4 Pulse 90 84 Resp 18 16 16 17 B/P (MAP) 130/68 (88) 131/76 (94) Pulse Ox 95 100 O2 Delivery Room Air Room Air Room Air Room Air 03/06/18 03/06/18 03/06/18 03/06/18 18:09 19:00 19:15 21:28 Temp 96.6 96.6 Pulse 89 Resp 16 18 14 B/P (MAP) 123/63 (83) Pulse Ox 100 100 100 O2 Delivery Room Air Room Air Room Air Room Air 03/06/18 03/06/18 03/07/18 03/07/18 21:50 22:58 03:00 07:00 Temp 97.7 97.5 96.6 97.7 97.5 96.6 Pulse 82 72 73 Resp 16 18 18 B/P (MAP) 128/77 (94) 116/62 (80) 114/66 (82) Pulse Ox 100 96 100 100 O2 Delivery Room Air Room Air Room Air Room Air 03/07/18 09:54 O2 Delivery Room Air Intake and Output 03/06/18 03/06/18 03/07/18 15:00 23:00 07:00 Intake Total 1590 ml 200 ml Output Total 600 ml Balance 1590 ml -400 ml BENITA LUTZ MD Mar 07, 2018 10:09
--- NOTE | 2018-03-07 10:42 | CARD ---
MR#: [id number] Date of Study: 03/07/2018 Ordering Physician: BENITA LUTZ, Referring Physician: BENITA LUTZ, Tech: Katie De La Cruz RDCS APPROVED REPORT EXAM: Two-dimensional and M-mode echocardiogram with Doppler and color Doppler. Other Information Quality : Good INDICATION Chest Pain 2D DIMENSIONS Left Atrium(2D)2.6 (1.6-4.0cm)IVSd0.8 (0.7-1.1cm) Aortic Root(2D)2.8 (2.0-3.7cm)LVDd3.4 (3.9-5.9cm) LVOT Diameter1.9 (1.8-2.4cm)PWd0.8 (0.7-1.1cm) LVDs2.5 (2.5-4.0cm)FS (%) 27.7 % SV26.7 mlLVEF(%)55.0 (>50%) Aortic Valve AoV Peak Zackary.140.6cm/sAoV VTI30.6cm AO Peak GR.7.9mmHgLVOT Peak Zackary.138.1cm/s LVOT VTI 18.30cmAO Mean GR.4mmHg YOKO (VMAX)2.15or2CSL (VTI)1.99cm2 Mitral Valve MV E Zyeuwrpo12.0cm/sMV DECEL [id number] MV A Hitzlrhf07.4cm/sMV IFH04hv E/A Ratio0.7MVA (PHT)2.49cm2 TDI E/Lateral E'7.4E/Medial E'10.1 Tricuspid Valve TR P. Ybwiucpw282gl/sRAP JRMJOVZE4phSz TR Peak Gr.37zbOfWOTY65yeMo Pulmonary Vein S1 Aqsjmotm294.8cm/sD2 Itnhkvpa18.8cm/s LEFT VENTRICLE The left ventricle is normal size. There is normal left ventricular wall thickness. The left ventricu lar systolic function is normal. The Ejection Fraction is 60-65%. There is normal LV segmental wall m otion. Transmitral Doppler flow pattern is Grade I-abnormal relaxation pattern. RIGHT VENTRICLE The right ventricle is normal size. The right ventricular systolic function is normal. ATRIA The left atrium size is normal. The right atrium size is normal. The interatrial septum is intact wit h no evidence for an atrial septal defect or patent foramen ovale as noted on 2-D or Doppler imaging. AORTIC VALVE The aortic valve is calcified but opens well. Doppler and Color Flow revealed no significant aortic r egurgitation. There is no significant aortic valvular stenosis. MITRAL VALVE The mitral valve is calcified but opens well. There is no evidence of mitral valve prolapse. There is no mitral valve stenosis. Doppler and Color-flow revealed trace mitral regurgitation. TRICUSPID VALVE The tricuspid valve is normal in structure and function. Doppler and Color Flow revealed trace tricus pid regurgitation. The PA pressure was estimated at 27 mmHg. There is no tricuspid valve stenosis. PULMONIC VALVE The pulmonic valve is not well visualized. Doppler and Color Flow revealed no pulmonic valvular regur gitation. There is no pulmonic valvular stenosis. GREAT VESSELS The aortic root is normal in size. The ascending aorta is normal in size. The IVC was not visualized due to a fistula on her stomach. PERICARDIAL EFFUSION There is no evidence of significant pericardial effusion. Critical Notification Critical Value: No <Conclusion> The left ventricular systolic function is normal. The Ejection Fraction is 60-65%. There is normal LV segmental wall motion. Transmitral Doppler flow pattern is Grade I-abnormal relaxation pattern. Trace mitral regurgitation. Trace tricuspid regurgitation. The PA pressure was estimated at 27 mmHg. There is no evidence of significant pericardial effusion. Signed by : Naga Nicholas, Electronically Approved : 03/07/2018 10:41:09
--- NOTE | 2018-03-07 11:38 | PDOC2 ---
CARDIAC CONSULT DATE OF CONSULT Date of Consult DATE: 03/07/18 TIME: 11:36 REASON FOR CONSULT Reason for Consult: chest pain REFERRING PHYSICIAN Referring Physician: Blayne SOURCE Source: Chart review, Patient HISTORY OF PRESENT ILLNESS HISTORY OF PRESENT ILLNESS 62 year old female admitted through the ER with pain related to a fistula. Reportedly with CP on Sat prior to admission though she becomes irritable with questioning and reports she has already answered this. Pain ? substernal but places hand across bilateral chest when asked to locate pain. Further questions about her chest pain resulted in answers related to her fistula. Reason for Visit: chest pian PAST MEDICAL HISTORY Cardiovascular: HTN GI: Diverticulosis, GERD, Peptic Ulcer disease, Other (fistula) Psych: Depression Renal/: UTI FAMILY HISTORY Family History: Family History Unknown SOCIAL HISTORY Smoke: No ALCOHOL: none Drugs: None CURRENT MEDICATIONS CURRENT MEDICATIONS Current Medications Medications (Trade) Dose Ordered Sig/Alex Route PRN Reason Start Time Stop Time Status Last Admin Dose Admin Linezolid/Dextrose 300 ml @ 300 mls/hr Q12HR IV 03/06/18 12:00 03/07/18 09:50 Piperacillin Sod/ Tazobactam Sod 3.375 gm/Sodium Chloride 50 ml @ 100 mls/hr Q6HRS IV 03/06/18 12:00 03/07/18 05:26 Sertraline HCl (Zoloft) 50 mg DAILY PO 03/06/18 12:00 03/07/18 09:49 Fentanyl (Duragesic 25mcg/ Hr Patch) 1 patch Q3DAYS TD 03/06/18 12:00 03/06/18 14:01 Pantoprazole Sodium (Protonix) 40 mg DAILYAC PO 03/06/18 12:00 03/07/18 09:49 Magnesium Sulfate 50 ml @ 25 mls/hr 1X ONCE IV 03/06/18 12:00 03/06/18 13:59 DC 03/06/18 14:02 Lidocaine (Xylocaine) 1 nallely BID TP 03/06/18 12:00 03/07/18 09:54 Zinc Oxide (Zinc Oxide 20% Topical) 1 nallely BID TP 03/06/18 12:00 03/07/18 09:54 Sodium Chloride 210 meq/Potassium Chloride 60 meq/ Potassium Phosphate 6.8 mmol/Magnesium Sulfate 32 meq/ Multivitamins 10 ml/Chromium/ Copper/Manganese/ Seleni/Zn 1 ml/ Potassium Acetate 20 meq/Total Parenteral Nutrition/Amino Acids/Dextrose/ Fat Emulsion Intravenous 1,920 ml @ 80 mls/hr TPN CONT IV 03/06/18 22:00 03/07/18 21:59 03/06/18 21:07 Nystatin (Mycostatin) 1 nallely BID TP 03/06/18 21:00 03/07/18 09:54 ALLERGIES ALLERGIES: Coded Allergies: Iodinated Contrast- Oral and IV Dye (Verified Allergy, Severe, Anaphylaxis , 09/14/17) PT HAS BEEN PREMEDICATED BEFORE WITH NO PROBLEMS, 6-. vancomycin (Verified Allergy, Severe, Swelling, 09/14/17) adhesive tape (Verified Allergy, Intermediate, Rash, 09/14/17) silver (Verified Allergy, Intermediate, Rash, Tegaderm film, can have on abd but no where else, 09/14/17) codeine (Verified Adverse Reaction, Severe, Nausea and Vomiting, 09/14/17) ROS Review of System see HPI General: YES: Fatigue, Malaise; No: Chills, Night Sweats, Appetite, Other PHYSICAL EXAM General: Alert HEENT: Atraumatic VITALS VITALS Vital Signs Date Time Temp Pulse Resp B/P (MAP) Pulse Ox O2 Delivery O2 Flow Rate FiO2 03/07/18 09:54 Room Air 03/07/18 07:00 96.6 73 18 114/66 (82) 100 96.6 LABS Lab: Laboratory Tests Test 03/07/18 05:30 White Blood Count 3.4 x10^3/uL (4.0-11.0) Red Blood Count 3.56 x10^6/uL (3.50-5.40) Hemoglobin 9.6 g/dL (12.0-15.5) Hematocrit 29.2 % (36.0-47.0) Mean Corpuscular Volume 82 fL (79-100) Mean Corpuscular Hemoglobin 27 pg (25-35) Mean Corpuscular Hemoglobin Concent 33 g/dL (31-37) Red Cell Distribution Width 18.0 % (11.5-14.5) Platelet Count 244 x10^3/uL (140-400) Neutrophils (%) (Auto) 57 % (31-73) Lymphocytes (%) (Auto) 17 % (24-48) Monocytes (%) (Auto) 10 % (0-9) Eosinophils (%) (Auto) 13 % (0-3) Basophils (%) (Auto) 3 % (0-3) Neutrophils # (Auto) 1.9 x10^3uL (1.8-7.7) Lymphocytes # (Auto) 0.6 x10^3/uL (1.0-4.8) Monocytes # (Auto) 0.3 x10^3/uL (0.0-1.1) Eosinophils # (Auto) 0.4 x10^3/uL (0.0-0.7) Basophils # (Auto) 0.1 x10^3/uL (0.0-0.2) Sodium Level 140 mmol/L (136-145) Potassium Level 4.9 mmol/L (3.5-5.1) Chloride Level 108 mmol/L (98-107) Carbon Dioxide Level 29 mmol/L (21-32) Anion Gap 3 (6-14) Blood Urea Nitrogen 12 mg/dL (7-20) Creatinine 0.5 mg/dL (0.6-1.0) Estimated GFR (Cockcroft-Gault) 151.3 Glucose Level 89 mg/dL (70-99) Calcium Level 8.6 mg/dL (8.5-10.1) Magnesium Level 2.5 mg/dL (1.8-2.4) Troponin I Quantitative < 0.017 ng/mL (0.000-0.055) IMAGES IMAGES CXR: AP view was taken of the chest. Lungs are clear. Heart is normal in size without heart failure. There is a central line in good position, unchanged. There is no effusion. IMPRESSION: 1. No new infiltrates. EKG EKG SR without acute changes ECHOCARDIOGRAM ECHOCARDIOGRAM 03/07/2018: TTE: The left ventricular systolic function is normal. The Ejection Fraction is 60-65%. There is normal LV segmental wall motion. Transmitral Doppler flow pattern is Grade I-abnormal relaxation pattern. Trace mitral regurgitation. Trace tricuspid regurgitation. The PA pressure was estimated at 27 mmHg. There is no evidence of significant pericardial effusion. STRESS TEST STRESS TEST 11/02/2013: MPI: 1. No electrocardiographic changes suggestive of myocardial ischemia with pharmacological stress. 2. No significant perfusion defects to suggest myocardial ischemia or scar. 3. Normal wall motion and wall thickening with an ejection fraction of 78%. 4. Scan indicates low risk for future cardiac events. ASSESSMENT/PLAN ASSESSMENT/PLAN 1. chest pain, atypical --EKG and troponin levels not consistent with AMI --TTE without significant findings 2. fistula --defer to primary service Will follow peripherally; please contact for further assistance CANDELARIA BLACKMAN APRN Mar 07, 2018 11:38
--- NOTE | 2018-03-07 12:15 | PDOC2 ---
GI CONSULT Reason For Consult: Hyperemesis HPI: HPI: 62 y/o female, attempted to see twice this morning - once leaving for echocardiogram and once quite drowsy (?from pain med). Per chart, admitted w/ fever, dysuria, chest pain, and vomiting. Asked to see re: vomiting, she says this last occurred about 20 min ago. Known from previous admissions, h/o complicated diverticular disease w/ enterocutaneous fistulas w/ numerous (unsuccessful) surgeries in the past (at [facility], , [facility]). At home uses topical lidocaine, Nystatin, and zinc oxide for skin around fistula. Says leaves area uncovered (no bag or dressing) except for towels. Has chronic abd pain on varying doses of Dilaudid PRN at home. Chronic n/v also discussed in chart. Says she thinks her vomiting is related to increasing Dilaudid dose/usage w/ increased pain w/ UTI symptoms. On chronic TPN at home, indicates takes some PO as well - names cottage cheese or eggs. Denies diarrhea or constipation. On CT: large amount of stool in distal colon, other findings stable/chronic. Can document EGD by Dr. Arellano (can view path only) for dysphagia in 09/2017 - ana esophagitis (negative for Wallace's). Other notes indicate last colonoscopy in 2011 w/ diverticulosis and previous resection. S/p cholecystectomy (does not recall stones). Have seen for elevated LFTs in the past, MRCP showed "kink" in CBD. PMH: PMH: HTN, cervical cancer (w/ radium implants), UE DVT, anxiety, sepsis, UTI, esophagitis and gastritis, ?PUD, SBO, diverticulosis, CKD, hypothyroidism, fistulas as above, appendectomy, cholecystectomy, hysterectomy, bilateral hip pinning, multiple laparotomies, I&D superficial abdominal wall/skin abscess, PICC placement, G tube placement/removal, colon resection FH: Family History: No pertinent hx Social History: Smoke: No ALCOHOL: none Drugs: None ROS: Difficult to obtain, see HPI. Vitals: Vitals: Vital Signs Date Time Temp Pulse Resp B/P (MAP) Pulse Ox O2 Delivery O2 Flow Rate FiO2 03/07/18 09:54 Room Air 03/07/18 07:00 96.6 73 18 114/66 (82) 100 96.6 Labs: Labs: Laboratory Tests Test 03/07/18 05:30 White Blood Count 3.4 x10^3/uL (4.0-11.0) Red Blood Count 3.56 x10^6/uL (3.50-5.40) Hemoglobin 9.6 g/dL (12.0-15.5) Hematocrit 29.2 % (36.0-47.0) Mean Corpuscular Volume 82 fL (79-100) Mean Corpuscular Hemoglobin 27 pg (25-35) Mean Corpuscular Hemoglobin Concent 33 g/dL (31-37) Red Cell Distribution Width 18.0 % (11.5-14.5) Platelet Count 244 x10^3/uL (140-400) Neutrophils (%) (Auto) 57 % (31-73) Lymphocytes (%) (Auto) 17 % (24-48) Monocytes (%) (Auto) 10 % (0-9) Eosinophils (%) (Auto) 13 % (0-3) Basophils (%) (Auto) 3 % (0-3) Neutrophils # (Auto) 1.9 x10^3uL (1.8-7.7) Lymphocytes # (Auto) 0.6 x10^3/uL (1.0-4.8) Monocytes # (Auto) 0.3 x10^3/uL (0.0-1.1) Eosinophils # (Auto) 0.4 x10^3/uL (0.0-0.7) Basophils # (Auto) 0.1 x10^3/uL (0.0-0.2) Sodium Level 140 mmol/L (136-145) Potassium Level 4.9 mmol/L (3.5-5.1) Chloride Level 108 mmol/L (98-107) Carbon Dioxide Level 29 mmol/L (21-32) Anion Gap 3 (6-14) Blood Urea Nitrogen 12 mg/dL (7-20) Creatinine 0.5 mg/dL (0.6-1.0) Estimated GFR (Cockcroft-Gault) 151.3 Glucose Level 89 mg/dL (70-99) Calcium Level 8.6 mg/dL (8.5-10.1) Magnesium Level 2.5 mg/dL (1.8-2.4) Troponin I Quantitative < 0.017 ng/mL (0.000-0.055) BLOOD CULTURE Preliminary NO GROWTH AFTER 1 DAY Allergies: Coded Allergies: Iodinated Contrast- Oral and IV Dye (Verified Allergy, Severe, Anaphylaxis , 09/14/17) PT HAS BEEN PREMEDICATED BEFORE WITH NO PROBLEMS, 6-15. vancomycin (Verified Allergy, Severe, Swelling, 09/14/17) adhesive tape (Verified Allergy, Intermediate, Rash, 09/14/17) silver (Verified Allergy, Intermediate, Rash, Tegaderm film, can have on abd but no where else, 09/14/17) codeine (Verified Adverse Reaction, Severe, Nausea and Vomiting, 09/14/17) Medications: Current Medications Medications (Trade) Dose Ordered Sig/Alex Route PRN Reason Start Time Stop Time Status Last Admin Dose Admin Sodium Chloride 210 meq/Potassium Chloride 60 meq/ Potassium Phosphate 6.8 mmol/Magnesium Sulfate 32 meq/ Multivitamins 10 ml/Chromium/ Copper/Manganese/ Seleni/Zn 1 ml/ Potassium Acetate 20 meq/Total Parenteral Nutrition/Amino Acids/Dextrose/ Fat Emulsion Intravenous 1,920 ml @ 80 mls/hr TPN CONT IV 03/06/18 22:00 03/07/18 21:59 03/06/18 21:07 Nystatin (Mycostatin) 1 nallely BID TP 03/06/18 21:00 03/07/18 09:54 Imaging: Imaging: Echocardiogram <Conclusion> The left ventricular systolic function is normal. The Ejection Fraction is 60-65%. There is normal LV segmental wall motion. Transmitral Doppler flow pattern is Grade I-abnormal relaxation pattern. Trace mitral regurgitation. Trace tricuspid regurgitation. The PA pressure was estimated at 27 mmHg. There is no evidence of significant pericardial effusion. CT A/P w/o contrast IMPRESSION: 1. No bowel obstruction. 2. Large amount of stool in the distal colon, patient may be constipated. 3. Stable appearing multiple anastomotic sutures in the abdomen from previous multiple bowel surgeries. No evidence of pneumoperitoneum. 4. Stable nodular soft tissue along the left lower omentum dating back to at least 2016, nonspecific and may represent granulation tissue, lymph nodes or metastatic implants if there is history of malignancy. CXR IMPRESSION: 1. No new infiltrates. PE: GEN: NAD HEENT: Atraumatic, PERRL LUNGS: CTAB HEART: RRR ABD/SKIN: fistula draining yellowish fluid, erythema and chronic irritation of skin EXTREMITY: No edema NEURO/PSYCH: drowsy - drifts in and out of sleep, takes time to answer questions , discusses unrelated issues A/P: A/P: Fever, chest pain, dysuria Chronic abd pain, vomiting - on home TPN and Dilaudid H/o diverticular disease w/ fistulas, multiple abd surgeries ?GERD - EGD 09/[address] Arellano, on PPI here ?constipation - CT w/ large amount of stool in distal colon CRC screen - UTD Diverticulosis S/p cholecystectomy Chronic anemia -- Will return later w/ Dr. Ovalle. MIESHA RICO Mar 07, 2018 12:15
--- NOTE | 2018-03-07 12:29 | PDOC ---
Infectious Disease Note Vital Sign Vital Signs Vital Signs Date Time Temp Pulse Resp B/P (MAP) Pulse Ox O2 Delivery O2 Flow Rate FiO2 03/07/18 09:54 Room Air 03/07/18 07:00 96.6 73 18 114/66 (82) 100 96.6 Labs Lab Laboratory Tests Test 03/07/18 05:30 White Blood Count 3.4 x10^3/uL (4.0-11.0) Red Blood Count 3.56 x10^6/uL (3.50-5.40) Hemoglobin 9.6 g/dL (12.0-15.5) Hematocrit 29.2 % (36.0-47.0) Mean Corpuscular Volume 82 fL (79-100) Mean Corpuscular Hemoglobin 27 pg (25-35) Mean Corpuscular Hemoglobin Concent 33 g/dL (31-37) Red Cell Distribution Width 18.0 % (11.5-14.5) Platelet Count 244 x10^3/uL (140-400) Neutrophils (%) (Auto) 57 % (31-73) Lymphocytes (%) (Auto) 17 % (24-48) Monocytes (%) (Auto) 10 % (0-9) Eosinophils (%) (Auto) 13 % (0-3) Basophils (%) (Auto) 3 % (0-3) Neutrophils # (Auto) 1.9 x10^3uL (1.8-7.7) Lymphocytes # (Auto) 0.6 x10^3/uL (1.0-4.8) Monocytes # (Auto) 0.3 x10^3/uL (0.0-1.1) Eosinophils # (Auto) 0.4 x10^3/uL (0.0-0.7) Basophils # (Auto) 0.1 x10^3/uL (0.0-0.2) Sodium Level 140 mmol/L (136-145) Potassium Level 4.9 mmol/L (3.5-5.1) Chloride Level 108 mmol/L (98-107) Carbon Dioxide Level 29 mmol/L (21-32) Anion Gap 3 (6-14) Blood Urea Nitrogen 12 mg/dL (7-20) Creatinine 0.5 mg/dL (0.6-1.0) Estimated GFR (Cockcroft-Gault) 151.3 Glucose Level 89 mg/dL (70-99) Calcium Level 8.6 mg/dL (8.5-10.1) Magnesium Level 2.5 mg/dL (1.8-2.4) Troponin I Quantitative < 0.017 ng/mL (0.000-0.055) Micro Microbiology 03/06/18 Blood Culture - Preliminary, Resulted NO GROWTH AFTER 1 DAY Objective Assessment fever leuokopenia UTI - POA EC fistula Plan Plan of Care Agree with Zyvox and Zosyn F/u labs and cults Await Cardiology eval Thank you # [phone] ABBY MOTT MD Mar 07, 2018 12:29
[2018-03-07] MEDS: TPN PER PHARMACY MC PRN (12:37)
[2018-03-07 15:00] VITALS: BP 145/74
--- NOTE | 2018-03-07 17:28 | CONS ---
DATE OF CONSULTATION: 03/07/2018 ROOM: 530. REQUESTING PHYSICIAN: Dr. Cisneros. REASON FOR CONSULTATION: Fever. HISTORY OF PRESENT ILLNESS: The patient is a pleasant 62-year-old female with a history of enterocutaneous fistula and previous urinary tract infections with E. coli, Enterobacter and enterococcus as well as history of MRSA bacteremia with line infections from Judi glabrata, Staph warneri, Klebsiella pneumoniae. Last week, she was seen in the outpatient setting by Dr. Cisneros, and it was felt that she was having urinary tract infection. She was started on levofloxacin, which she began on , she took a dose on and Wednesday, but then on Wednesday, she began to feel ill, and she had some nausea, vomiting, increased abdominal discomfort, some chest discomfort and fever. She presented to [facility] and said she had a temperature of 101 degrees. Urinalysis was collected, was concerning for urinary tract infection. White blood cell count was 6.1 initially. She was given a dose of Rocephin and admitted to the hospital and currently she is on Zyvox and Zosyn. Cultures are currently pending. Currently, the patient is feeling better, almost back to baseline. Denies any gross headaches, no more nausea or vomiting. She has less discomfort around her fistula site. She has no chest pain or shortness of air and feels that she is very close to her baseline. PAST MEDICAL HISTORY: 1. Positive for line infections with MRSA, Judi glabrata Klebsiella pneumoniae, Staph warneri. Previous E. coli, Enterobacter, Enterococcus faecium, penicillin resistant and Enterococcus faecalis in urine. 2. Enterocutaneous fistula, enterovesicular fistula, on chronic TPN. 3. Anemia of chronic disease. 4. Hypertension. 5. Depression. 6. Esophagitis. 7. DVT. 8. Diverticulosis and diverticulitis and peptic ulcer disease. PAST SURGICAL HISTORY: Positive for appendectomy, cholecystectomy, tonsillectomy, hysterectomy, jejunostomy and reversal, ileostomy reversal and multiple abdominal enterovesicular fistula repairs x 5, multiple line placements. REVIEW OF SYSTEMS: Otherwise negative. ALLERGIES: VANCOMYCIN CAUSES SWELLING. ORAL AND IV CONTRAST, ADHESIVE TAPE, CODEINE AND SILVER. SOCIAL HISTORY: She lives at home. No tobacco or alcohol. FAMILY HISTORY: Noncontributory. CURRENT MEDICATIONS: Include vancomycin and Zosyn, nystatin, Ativan, Protonix, Zofran, Zoloft, TPN. Other meds are available and have been reviewed in the chart. PHYSICAL EXAMINATION: VITAL SIGNS: She is afebrile, temperature 96.6, pulse 73, respirations 18, blood pressure 114/66, satting 100% on room air. CONSTITUTIONAL: She is pleasant. She is cooperative. She is in no acute distress. HEENT: Pupils are equal and reactive. Oral cavity, pharynx is clear. NECK: Supple, without JVD. LUNGS: Clear to auscultation. HEART: S1, S2. She has a power PICC in her right chest without signs of any complications. ABDOMEN: Soft, nondistended. She has an EC fistula with some mild skin excoriation, but no gross signs of active infection. EXTREMITIES: Without clubbing, cyanosis or gross edema. SKIN: Warm to touch without signs of rash. NEUROLOGIC: She is nonfocal and appropriate. PSYCHIATRIC: Affect is pleasant. LABORATORY DATA: White count 3.4, hemoglobin 9.6, platelets of 244, neutrophils 57. Creatinine is 0.5, glucose of 89. Urinalysis concerning for a positive culture. Cultures are currently pending. Chest x-ray shows no new infiltrates. Abdomen and pelvis CT scan without contrast, large amount of stool, may be constipated, stable-appearing anastomotic sutures. No evidence of pneumoperitoneum, stable nodular soft tissue. IMPRESSION: 1. Fever. 2. Leukopenia. 3. Urinary tract infection present on admission. 4. Enterocutaneous fistula. RECOMMENDATIONS: For now, agree with the Zyvox and Zosyn. We will follow up labs and cultures, await further cardiology evaluation. Thank you for the opportunity to participate in the patient's care. If you have any questions, please do not hesitate to contact me. ABBY MOTT MD DR: DUNCAN/jd JOB#: [id number] / [id number]
[2018-03-07 19:00] VITALS: BP 130/65
[2018-03-07] MEDS ORDERED: DEXTROSE 70% IV SCH ×10 (22:00)
[2018-03-07] MEDS ORDERED: [UNRECOGNIZED DRUG - OTHER] IV SCH ×10 (22:00)
[2018-03-07] MEDS ORDERED: AMINO ACIDS IV SCH ×10 (22:00)
[2018-03-07] MEDS ORDERED: TOTAL PARENTERAL NUTRITION IV SCH ×10 (22:00)
[2018-03-07 23:00] VITALS: BP 153/75
[2018-03-08 03:00] VITALS: BP 136/81
[2018-03-08] MEDS: HYDROmorphone 2 MG/ML VIAL IV PRN ×4 (04:51→22:00)
[2018-03-08] MEDS: PIPERACILLIN/TAZOBACTAM 3.375 GM in IV NORMAL SALINE 50ML 50 ML IV SCH ×4 (05:25→23:17)
[2018-03-08 06:01] LABS: CALCIUM 8.7 mg/dL (8.5-10.1); CREATININE 0.7 mg/dL (0.6-1.0); GFR 102.6; MAGNESIUM 2.7 mg/dL (1.8-2.4); PHOSPHORUS 3.7 mg/dL (2.6-4.7); POTASSIUM 5.3 mmol/L (3.5-5.1)
[2018-03-08 07:00] VITALS: BP 137/81
[2018-03-08] MEDS: PANTOPRAZOLE 40 MG TABLET.DR. PO SCH (07:53)
[2018-03-08] MEDS: SERTRALINE 50 MG TABLET. PO SCH (07:53)
[2018-03-08] MEDS: LIDOCAINE 5% TOPICAL OINTMENT 35GM TUBE. TP SCH ×2 (08:49→20:44)
[2018-03-08] MEDS: NYSTATIN 100,000 UNIT/GM TOPICAL CREAM 15GM TUBE. TP SCH ×2 (08:50→20:44)
[2018-03-08] MEDS: ZINC OXIDE 20% TOPICAL OINTMENT 28GM TUBE. TP SCH ×2 (08:50→20:44)
--- NOTE | 2018-03-08 09:50 | PDOC ---
Infectious Disease Note Subjective Subjective Doing ok. did have some Vomiting last pm + Bm. No F/C/S/SOA/rash ROS ROS o/w neg Vital Sign Vital Signs Vital Signs Date Time Temp Pulse Resp B/P (MAP) Pulse Ox O2 Delivery O2 Flow Rate FiO2 03/08/18 07:40 Room Air 03/08/18 07:00 96.3 76 18 137/81 (99) 100 96.3 Physical Exam PHYSICAL EXAM CONSTITUTIONAL: She is pleasant. She is cooperative. She is in no acute distress. HEENT: Pupils are equal and reactive. Oral cavity, pharynx is clear. NECK: Supple, without JVD. LUNGS: Clear to auscultation. HEART: S1, S2. She has a power PICC in her right chest without signs of any complications. ABDOMEN: Soft, nondistended. She has an EC fistula with some mild skin excoriation, but no gross signs of active infection. EXTREMITIES: Without clubbing, cyanosis or gross edema. SKIN: Warm to touch without signs of rash. NEUROLOGIC: She is nonfocal and appropriate. PSYCHIATRIC: Affect is pleasant. Labs Lab Laboratory Tests Test 03/08/18 05:30 Sodium Level 142 mmol/L (136-145) Potassium Level 5.3 mmol/L (3.5-5.1) Chloride Level 109 mmol/L (98-107) Carbon Dioxide Level 28 mmol/L (21-32) Anion Gap 5 (6-14) Blood Urea Nitrogen 16 mg/dL (7-20) Creatinine 0.7 mg/dL (0.6-1.0) Estimated GFR (Cockcroft-Gault) 102.6 Glucose Level 82 mg/dL (70-99) Calcium Level 8.7 mg/dL (8.5-10.1) Phosphorus Level 3.7 mg/dL (2.6-4.7) Magnesium Level 2.7 mg/dL (1.8-2.4) Micro Microbiology 03/06/18 Blood Culture - Preliminary, Resulted NO GROWTH AFTER 1 DAY Objective Assessment GNR sepsis - POA 03/05 fever - better leuokopenia UTI - POA EC fistula Atypical chest pain Constipation Plan Plan of Care cont Zyvox and Zosyn F/u labs (CBC in am) and cults - blood and urine d/w ABBY Culp MD Mar 08, 2018 09:50
--- NOTE | 2018-03-08 09:55 | PDOC ---
PROGRESS NOTES Subjective Subjective 1/3 blood cultures positive for GNR. spoke with nurse. had a small amount of blood per nurse from EC fistula site yesterday but not today. lab reviewed. sbc 3.4. magnesium 2.7 and potassium 5.3 . will decrease magnesium and kcl in TPN. feels the same. urine culture pending. afebrile. Objective Objective Vital Signs Date Time Temp Pulse Resp B/P (MAP) Pulse Ox O2 Delivery O2 Flow Rate FiO2 03/08/18 07:40 Room Air 03/08/18 07:00 96.3 76 18 137/81 (99) 100 96.3 Intake and Output 03/08/18 07:00 Intake Total 3000 ml Balance 3000 ml Intake Oral 330 ml IV Total 2670 ml # Voids 4 Physical Exam Abdomen: Soft, Other (EC fistula) Heart: Regular rate, Normal S1, Normal S2 Extremities: No edema General: Alert HEENT: Atraumatic Lungs: Clear to auscultation Neuro: Normal speech Psych/Mental Status: Mental status NL Skin: No rashes Assessment Assessment Problems. GNR bacteremia 1/3 positive 2. Dysuria.better 3. Chest pain. 4. Enterocutaneous fistula. 5. Enterovesical fistula. 6. Hypokalemia. resolved 7. Hypomagnesemia. resolved 8. Anemia of chronic disease. 9. Severe protein-calorie malnutrition. mild hyperkalemia small amount of blood from EC fistula Medical Problems: (1) Vesicoenteric fistula Status: Acute Plan Plan of Care continue iv zyvox and zosyn await final blood and urine culture results decrease kcl and magnesium in TPN. I spoke with pharmacist lab tomorrow Comment Review of Relevant I have reviewed the following items lucila (where applicable) has been applied. Labs Laboratory Tests Test 03/07/18 05:30 03/08/18 05:30 White Blood Count 3.4 x10^3/uL (4.0-11.0) Red Blood Count 3.56 x10^6/uL (3.50-5.40) Hemoglobin 9.6 g/dL (12.0-15.5) Hematocrit 29.2 % (36.0-47.0) Mean Corpuscular Volume 82 fL (79-100) Mean Corpuscular Hemoglobin 27 pg (25-35) Mean Corpuscular Hemoglobin Concent 33 g/dL (31-37) Red Cell Distribution Width 18.0 % (11.5-14.5) Platelet Count 244 x10^3/uL (140-400) Neutrophils (%) (Auto) 57 % (31-73) Lymphocytes (%) (Auto) 17 % (24-48) Monocytes (%) (Auto) 10 % (0-9) Eosinophils (%) (Auto) 13 % (0-3) Basophils (%) (Auto) 3 % (0-3) Neutrophils # (Auto) 1.9 x10^3uL (1.8-7.7) Lymphocytes # (Auto) 0.6 x10^3/uL (1.0-4.8) Monocytes # (Auto) 0.3 x10^3/uL (0.0-1.1) Eosinophils # (Auto) 0.4 x10^3/uL (0.0-0.7) Basophils # (Auto) 0.1 x10^3/uL (0.0-0.2) Sodium Level 140 mmol/L (136-145) 142 mmol/L (136-145) Potassium Level 4.9 mmol/L (3.5-5.1) 5.3 mmol/L (3.5-5.1) Chloride Level 108 mmol/L (98-107) 109 mmol/L (98-107) Carbon Dioxide Level 29 mmol/L (21-32) 28 mmol/L (21-32) Anion Gap 3 (6-14) 5 (6-14) Blood Urea Nitrogen 12 mg/dL (7-20) 16 mg/dL (7-20) Creatinine 0.5 mg/dL (0.6-1.0) 0.7 mg/dL (0.6-1.0) Estimated GFR (Cockcroft-Gault) 151.3 102.6 Glucose Level 89 mg/dL (70-99) 82 mg/dL (70-99) Calcium Level 8.6 mg/dL (8.5-10.1) 8.7 mg/dL (8.5-10.1) Magnesium Level 2.5 mg/dL (1.8-2.4) 2.7 mg/dL (1.8-2.4) Troponin I Quantitative < 0.017 ng/mL (0.000-0.055) Phosphorus Level 3.7 mg/dL (2.6-4.7) Laboratory Tests Test 03/08/18 05:30 Sodium Level 142 mmol/L (136-145) Potassium Level 5.3 mmol/L (3.5-5.1) Chloride Level 109 mmol/L (98-107) Carbon Dioxide Level 28 mmol/L (21-32) Anion Gap 5 (6-14) Blood Urea Nitrogen 16 mg/dL (7-20) Creatinine 0.7 mg/dL (0.6-1.0) Estimated GFR (Cockcroft-Gault) 102.6 Glucose Level 82 mg/dL (70-99) Calcium Level 8.7 mg/dL (8.5-10.1) Phosphorus Level 3.7 mg/dL (2.6-4.7) Magnesium Level 2.7 mg/dL (1.8-2.4) Microbiology 03/06/18 Blood Culture - Preliminary, Resulted NO GROWTH AFTER 2 DAYS Medications Current Medications Sodium Chloride 1,000 ml @ 1,000 mls/hr 1X ONCE IV Last administered on at 23:47; Start 03/05/18 at 23:15; Stop 03/06/18 at 00:14; Status DC Fentanyl Citrate (Fentanyl 2ml Vial) 75 mcg 1X ONCE IV Last administered on at 23:46; Start 03/05/18 at 23:15; Stop 03/05/18 at 23:16; Status DC Ceftriaxone Sodium 1 gm/ Dextrose 50 ml @ 100 mls/hr Q24H IV ; Start 03/05/18 at 23:15; Status UNV Ceftriaxone Sodium 50 ml @ 100 mls/hr 1X ONCE IV ; Start 03/05/18 at 23:15; Stop 03/05/18 at 23:44; Status Cancel Ceftriaxone Sodium (Rocephin) 1 gm Q24H IVP ; Start 03/06/18 at 21:00; Status Cancel Ceftriaxone Sodium 50 ml @ 100 mls/hr 1X ONCE IV Last administered on at 23:47; Start 03/05/18 at 23:30; Stop 03/05/18 at 23:59; Status DC Info (Tpn Per Pharmacy) 1 each PRN DAILY PRN MC SEE COMMENTS Last administered on 03/07/18at 12:37; Start 03/06/18 at 00:15 Amino Acids/ Glycerin/ Electrolytes 1,000 ml @ 80 mls/hr [id number] IV Last administered on 03/06/18at 02:23; Start 03/06/18 at 01:30; Stop 03/06/18 at 21:59 ; Status DC Hydromorphone HCl (Dilaudid) 2 mg PRN Q6HRS PRN PO PAIN; Start 03/06/18 at 00: 15; Stop 03/06/18 at 10:54; Status DC Ondansetron HCl (Zofran) 4 mg PRN Q8HRS PRN IV NAUSEA/VOMITING Last administered on 03/06/18at 16:40; Start 03/06/18 at 00:15; Stop 03/07/18 at 00:14 ; Status DC Fentanyl Citrate (Fentanyl 2ml Vial) 50 mcg PRN Q2HR PRN IV PAIN Last administered on 03/06/18at 02:40; Start 03/06/18 at 00:15; Stop 03/07/18 at 00:14 ; Status DC Aspirin (Elma Aspirin) 325 mg 1X ONCE PO Last administered on 03/06/18at 00:33 ; Start 03/06/18 at 00:30; Stop 03/06/18 at 00:31; Status DC Potassium Chloride (Klor-Con) 40 meq 1X ONCE PO Last administered on at 01:14; Start 03/06/18 at 00:30; Stop 03/06/18 at 00:31; Status DC Potassium Chloride (KCl Oral Soln) 20 meq STK-MED ONCE .ROUTE ; Start 03/06/18 at 01:22; Stop 03/06/18 at 01:23; Status DC Influenza Virus Vaccine (Afluria Trivalent [id number] Syringe) 0.5 ml ONCE ONCE VAX IM Last administered on 03/06/18at 13:59; Start 03/06/18 at 09:00; Stop at 09:01; Status DC Info (Do NOT chart on this placeholder) 1 each PRN 1X PRN MC SEE COMMENTS; Start 03/06/18 at 03:15; Status Cancel Linezolid/Dextrose 300 ml @ 300 mls/hr Q12HR IV Last administered on at 08:49; Start 03/06/18 at 12:00 Piperacillin Sod/ Tazobactam Sod 3.375 gm/Sodium Chloride 50 ml @ 100 mls/hr Q6HRS IV Last administered on 03/08/18at 05:25; Start 03/06/18 at 12:00 Acetaminophen (Tylenol) 650 mg PRN Q6HRS PRN PO MILD PAIN / TEMP; Start at 10:45 Sertraline HCl (Zoloft) 50 mg DAILY PO Last administered on 03/08/18at 07:53; Start 03/06/18 at 12:00 Lorazepam (Ativan) 0.5 mg PRN Q6HRS PRN PO ANXIETY / AGITATION Last administered on 03/07/18at 02:29; Start 03/06/18 at 10:45 Fentanyl (Duragesic 25mcg/ Hr Patch) 1 patch Q3DAYS TD Last administered on at 14:01; Start 03/06/18 at 12:00 Ondansetron HCl (Zofran Odt) 4 mg PRN Q6HRS PRN PO NAUSEA/VOMITING Last administered on 03/07/18at 19:24; Start 03/06/18 at 10:45 Hydromorphone HCl (Dilaudid) 2 mg PRN Q4HRS PRN IV MODERATE PAIN; Start at 10:45 Hydromorphone HCl (Dilaudid) 4 mg PRN Q4HRS PRN IV SEVERE PAIN Last administered on 03/08/18at 04:51; Start 03/06/18 at 10:45 Diphenhydramine HCl (Benadryl) 25 mg PRN Q6HRS PRN PO ITCHING; Start 03/06/18 at 10:45 Pantoprazole Sodium (Protonix) 40 mg DAILYAC PO Last administered on 03/08/18at 07:53; Start 03/06/18 at 12:00 Zolpidem Tartrate (Ambien) 5 mg PRN QHS PRN PO INSOMNIA; Start 03/06/18 at 10: 45 Magnesium Sulfate 50 ml @ 25 mls/hr 1X ONCE IV Last administered on 03/06/18at 14:02; Start 03/06/18 at 12:00; Stop 03/06/18 at 13:59; Status DC Potassium Chloride/Water 50 ml @ 50 mls/hr Q1H IV Last administered on at 12:00; Start 03/06/18 at 11:00; Stop 03/06/18 at 12:59; Status DC Lidocaine (Xylocaine) 1 sang BID TP Last administered on 03/08/18at 08:49; Start 03/06/18 at 12:00 Zinc Oxide (Zinc Oxide 20% Topical) 1 sang BID TP Last administered on at 08:50; Start 03/06/18 at 12:00 Sodium Chloride 210 meq/Potassium Chloride 60 meq/ Potassium Phosphate 6.8 mmol/ Magnesium Sulfate 32 meq/ Multivitamins 10 ml/Chromium/ Copper/Manganese/ Seleni /Zn 1 ml/ Potassium Acetate 20 meq/Total Parenteral Nutrition/Amino Acids/ Dextrose/ Fat Emulsion Intravenous 1,920 ml @ 80 mls/hr TPN CONT IV Last administered on 03/06/18at 21:07; Start 03/06/18 at 22:00; Stop 03/07/18 at 21:59 ; Status DC Nystatin (Mycostatin) 1 sang BID TP Last administered on 03/08/18at 08:50; Start 03/06/18 at 21:00 Sodium Chloride 210 meq/Potassium Chloride 60 meq/ Potassium Phosphate 6.8 mmol/ Magnesium Sulfate 32 meq/ Multivitamins 10 ml/Chromium/ Copper/Manganese/ Seleni /Zn 1 ml/ Potassium Acetate 20 meq/Total Parenteral Nutrition/Amino Acids/ Dextrose/ Fat Emulsion Intravenous 1,920 ml @ 80 mls/hr TPN CONT IV Last administered on 03/07/18at 21:45; Start 03/07/18 at 22:00; Stop 03/08/18 at 21:59 Active Scripts Active FENTANYL 25mcg/hr (Fentanyl) 1 Each Patch.td72 1 Patch TD Q72H 30 Days Sertraline Hcl 50 Mg Tablet 50 Mg PO DAILY 30 Days Famotidine 20 Mg Tablet 20 Mg PO BID 60 Days Lidocaine 35.44 Gm Oint...g. 1 Sang TP BID Reported Zofran Odt (Ondansetron) 4 Mg Tab.rapdis 1 Tab SL PRN Q8HRS PRN Zinc Oxide 56.7 Gm Oint...g. 56.7 Gm TP PRN BID Dilaudid (Hydromorphone Hcl) 2 Mg Tablet 1 Tab PO PRN QID PRN Lorazepam 0.5 Mg Tablet 0.5 Mg PO Q6HRS PRN Vitals/I & O Vital Sign - Last 24 Hours 03/07/18 03/07/18 03/07/18 03/07/18 09:54 15:00 15:39 19:00 Temp 96.4 97.5 96.4 97.5 Pulse 78 67 Resp 18 16 B/P (MAP) 145/74 (97) 130/65 (86) Pulse Ox 100 96 O2 Delivery Room Air Room Air Room Air Room Air 03/07/18 03/07/18 03/07/18 03/08/18 19:10 20:39 23:00 03:00 Temp 96.9 96.3 96.9 96.3 Pulse 76 75 Resp 18 16 16 B/P (MAP) 153/75 (101) 136/81 (99) Pulse Ox 96 97 98 O2 Delivery Room Air Room Air Room Air Room Air 03/08/18 03/08/18 03/08/18 03/08/18 04:51 05:20 07:00 07:40 Temp 96.3 96.3 Pulse 76 Resp 16 16 18 B/P (MAP) 137/81 (99) Pulse Ox 98 98 100 O2 Delivery Room Air Room Air Room Air Room Air Intake and Output 03/07/18 03/07/18 03/08/18 15:00 23:00 07:00 Intake Total 300 ml 2450 ml 250 ml Balance 300 ml 2450 ml 250 ml Nutrition Consultation Dietary Evaluation: Recommendations by RD: PPN/TPN Comments: continue home TPN Pt calling dietary for foods tolerated Expected Outcomes/Goals: to meet > 75% est nutr needs Malnutrition Findings: Body Fat Depletion (Non Severe: Mild Depletion Weight Status: Appropriate BENITA LUTZ MD Mar 08, 2018 09:55
[2018-03-08 11:00] VITALS: BP 142/60
--- NOTE | 2018-03-08 12:05 | PDOC ---
G I PROGRESS NOTE Subjective Feels about the same. Says vomited last night. Physical Exam Lungs clear. RRR Abdomen soft; EC fistulae. Review of Relevant I have reviewed the following items lucila (where applicable) has been applied. Labs Laboratory Tests Test 03/07/18 05:30 03/08/18 05:30 White Blood Count 3.4 x10^3/uL (4.0-11.0) Red Blood Count 3.56 x10^6/uL (3.50-5.40) Hemoglobin 9.6 g/dL (12.0-15.5) Hematocrit 29.2 % (36.0-47.0) Mean Corpuscular Volume 82 fL (79-100) Mean Corpuscular Hemoglobin 27 pg (25-35) Mean Corpuscular Hemoglobin Concent 33 g/dL (31-37) Red Cell Distribution Width 18.0 % (11.5-14.5) Platelet Count 244 x10^3/uL (140-400) Neutrophils (%) (Auto) 57 % (31-73) Lymphocytes (%) (Auto) 17 % (24-48) Monocytes (%) (Auto) 10 % (0-9) Eosinophils (%) (Auto) 13 % (0-3) Basophils (%) (Auto) 3 % (0-3) Neutrophils # (Auto) 1.9 x10^3uL (1.8-7.7) Lymphocytes # (Auto) 0.6 x10^3/uL (1.0-4.8) Monocytes # (Auto) 0.3 x10^3/uL (0.0-1.1) Eosinophils # (Auto) 0.4 x10^3/uL (0.0-0.7) Basophils # (Auto) 0.1 x10^3/uL (0.0-0.2) Sodium Level 140 mmol/L (136-145) 142 mmol/L (136-145) Potassium Level 4.9 mmol/L (3.5-5.1) 5.3 mmol/L (3.5-5.1) Chloride Level 108 mmol/L (98-107) 109 mmol/L (98-107) Carbon Dioxide Level 29 mmol/L (21-32) 28 mmol/L (21-32) Anion Gap 3 (6-14) 5 (6-14) Blood Urea Nitrogen 12 mg/dL (7-20) 16 mg/dL (7-20) Creatinine 0.5 mg/dL (0.6-1.0) 0.7 mg/dL (0.6-1.0) Estimated GFR (Cockcroft-Gault) 151.3 102.6 Glucose Level 89 mg/dL (70-99) 82 mg/dL (70-99) Calcium Level 8.6 mg/dL (8.5-10.1) 8.7 mg/dL (8.5-10.1) Magnesium Level 2.5 mg/dL (1.8-2.4) 2.7 mg/dL (1.8-2.4) Troponin I Quantitative < 0.017 ng/mL (0.000-0.055) Phosphorus Level 3.7 mg/dL (2.6-4.7) Laboratory Tests Test 03/08/18 05:30 Sodium Level 142 mmol/L (136-145) Potassium Level 5.3 mmol/L (3.5-5.1) Chloride Level 109 mmol/L (98-107) Carbon Dioxide Level 28 mmol/L (21-32) Anion Gap 5 (6-14) Blood Urea Nitrogen 16 mg/dL (7-20) Creatinine 0.7 mg/dL (0.6-1.0) Estimated GFR (Cockcroft-Gault) 102.6 Glucose Level 82 mg/dL (70-99) Calcium Level 8.7 mg/dL (8.5-10.1) Phosphorus Level 3.7 mg/dL (2.6-4.7) Magnesium Level 2.7 mg/dL (1.8-2.4) Microbiology 03/06/18 Blood Culture - Preliminary, Resulted NO GROWTH AFTER 2 DAYS Per LEXIE Alcocer in blood culture. Vitals/I & O Vital Sign - Last 24 Hours 03/07/18 03/07/18 03/07/18 03/07/18 15:00 15:39 19:00 19:10 Temp 96.4 97.5 96.4 97.5 Pulse 78 67 Resp 18 16 B/P (MAP) 145/74 (97) 130/65 (86) Pulse Ox 100 96 O2 Delivery Room Air Room Air Room Air Room Air 9/24/18 03/07/18 03/08/18 03/08/18 20:39 23:00 03:00 04:51 Temp 96.9 96.3 96.9 96.3 Pulse 76 75 Resp 18 16 16 16 B/P (MAP) 153/75 (101) 136/81 (99) Pulse Ox 96 97 98 98 O2 Delivery Room Air Room Air Room Air Room Air 03/08/18 03/08/18 03/08/18 03/08/18 05:20 07:00 07:40 10:37 Temp 96.3 96.3 Pulse 76 Resp 16 18 B/P (MAP) 137/81 (99) Pulse Ox 98 100 O2 Delivery Room Air Room Air Room Air 03/08/18 11:16 O2 Delivery Room Air Intake and Output 03/07/18 03/07/18 03/08/18 15:00 23:00 07:00 Intake Total 300 ml 2450 ml 250 ml Balance 300 ml 2450 ml 250 ml Problem List Problems Medical Problems: (1) Vesicoenteric fistula Status: Acute Assessment Chronic EC/EV fistulae--suspect at least partially obstructed which maintains the fistulae to some extent. N, V may be secondary phenomena Plan of Care: Continue current Tx, Mgmt Plan of Care Note Don't know there's more we can do above what we are now. BENITA CALVILLO MD Mar 08, 2018 12:05
[2018-03-08] MEDS: TPN PER PHARMACY MC PRN (13:12)
[2018-03-08 15:00] VITALS: BP 123/65
[2018-03-08 19:00] VITALS: BP 154/91
[2018-03-08] MEDS ORDERED: DEXTROSE 70% IV SCH ×10 (22:00)
[2018-03-08] MEDS ORDERED: TOTAL PARENTERAL NUTRITION IV SCH ×10 (22:00)
[2018-03-08] MEDS ORDERED: AMINO ACIDS IV SCH ×10 (22:00)
[2018-03-08] MEDS ORDERED: [UNRECOGNIZED DRUG - OTHER] IV SCH ×10 (22:00)
[2018-03-08 23:00] VITALS: BP 138/61
[2018-03-09] MEDS: HYDROmorphone 2 MG/ML VIAL IV PRN ×3 (02:19→19:51)
[2018-03-09 03:00] VITALS: BP 122/62
[2018-03-09] MEDS: PIPERACILLIN/TAZOBACTAM 3.375 GM in IV NORMAL SALINE 50ML 50 ML IV SCH ×3 (05:24→17:37)
[2018-03-09] MEDS ORDERED: ALTEPLASE 2 MG VIAL INT CAT ONE (06:00)
[2018-03-09 07:00] VITALS: BP 142/73
[2018-03-09] MEDS: PANTOPRAZOLE 40 MG TABLET.DR. PO SCH (07:58)
[2018-03-09] MEDS: SERTRALINE 50 MG TABLET. PO SCH (07:59)
[2018-03-09] MEDS: fentaNYL 25MCG/HR PATCH 1 PATCH PATCH.TD72 TD SCH (07:59)
[2018-03-09] MEDS: NYSTATIN 100,000 UNIT/GM TOPICAL CREAM 15GM TUBE. TP SCH ×2 (08:00→22:14)
[2018-03-09] MEDS: LIDOCAINE 5% TOPICAL OINTMENT 35GM TUBE. TP SCH ×2 (08:00→22:14)
[2018-03-09] MEDS: ZINC OXIDE 20% TOPICAL OINTMENT 28GM TUBE. TP SCH ×2 (08:00→22:14)
[2018-03-09 08:13] LABS: BASO % 1 % (0-3); EOS # 0.5 x10^3/uL (0.0-0.7); EOS % 10 % (0-3); HEMATOCRIT 33.3 % (36.0-47.0); HEMOGLOBIN 10.8 g/dL (12.0-15.5); LYMPH # 0.9 x10^3/uL (1.0-4.8); LYMPH % 17 % (24-48); MEAN CORPUSCULAR HEMOGLOBIN 27 pg (25-35); MEAN CORPUSCULAR HGB CONC 33 g/dL (31-37); MEAN CORPUSCULAR VOLUME 84 fL (79-100); MONO # 0.3 x10^3/uL (0.0-1.1); MONO % 6 % (0-9); NEUT # 3.3 x10^3uL (1.8-7.7); NEUT % 66 % (31-73); PLATELET COUNT 339 x10^3/uL (140-400); RED BLOOD COUNT 3.99 x10^6/uL (3.50-5.40); RED CELL DISTRIBUTION WIDTH 18.9 % (11.5-14.5)
[2018-03-09 08:27] LABS: CREATININE 0.7 mg/dL (0.6-1.0); GFR 102.6; MAGNESIUM 2.6 mg/dL (1.8-2.4); POTASSIUM 5.5 mmol/L (3.5-5.1)
--- NOTE | 2018-03-09 09:19 | PDOC ---
Infectious Disease Note Subjective Subjective Doing ok. did have some Vomiting again last pm + Bm. No F/C/S/SOA/rash ROS ROS o/w neg Vital Sign Vital Signs Vital Signs Date Time Temp Pulse Resp B/P (MAP) Pulse Ox O2 Delivery O2 Flow Rate FiO2 03/09/18 07:59 98 Room Air 03/09/18 03:00 96.6 60 18 122/62 (82) 96.6 Physical Exam PHYSICAL EXAM CONSTITUTIONAL: She is pleasant. She is cooperative. She is in no acute distress. HEENT: Pupils are equal and reactive. Oral cavity, pharynx is clear. NECK: Supple, without JVD. LUNGS: Clear to auscultation. HEART: S1, S2. She has a power PICC in her right chest without signs of any complications. ABDOMEN: Soft, nondistended. She has an EC fistula with some mild skin excoriation, but no gross signs of active infection. EXTREMITIES: Without clubbing, cyanosis or gross edema. SKIN: Warm to touch without signs of rash. NEUROLOGIC: She is nonfocal and appropriate. PSYCHIATRIC: Affect is pleasant. Labs Lab Laboratory Tests Test 03/09/18 07:58 White Blood Count 5.0 x10^3/uL (4.0-11.0) Red Blood Count 3.99 x10^6/uL (3.50-5.40) Hemoglobin 10.8 g/dL (12.0-15.5) Hematocrit 33.3 % (36.0-47.0) Mean Corpuscular Volume 84 fL (79-100) Mean Corpuscular Hemoglobin 27 pg (25-35) Mean Corpuscular Hemoglobin Concent 33 g/dL (31-37) Red Cell Distribution Width 18.9 % (11.5-14.5) Platelet Count 339 x10^3/uL (140-400) Neutrophils (%) (Auto) 66 % (31-73) Lymphocytes (%) (Auto) 17 % (24-48) Monocytes (%) (Auto) 6 % (0-9) Eosinophils (%) (Auto) 10 % (0-3) Basophils (%) (Auto) 1 % (0-3) Neutrophils # (Auto) 3.3 x10^3uL (1.8-7.7) Lymphocytes # (Auto) 0.9 x10^3/uL (1.0-4.8) Monocytes # (Auto) 0.3 x10^3/uL (0.0-1.1) Eosinophils # (Auto) 0.5 x10^3/uL (0.0-0.7) Basophils # (Auto) 0.0 x10^3/uL (0.0-0.2) Sodium Level 140 mmol/L (136-145) Potassium Level 5.5 mmol/L (3.5-5.1) Chloride Level 108 mmol/L (98-107) Carbon Dioxide Level 29 mmol/L (21-32) Anion Gap 3 (6-14) Blood Urea Nitrogen 18 mg/dL (7-20) Creatinine 0.7 mg/dL (0.6-1.0) Estimated GFR (Cockcroft-Gault) 102.6 Glucose Level 114 mg/dL (70-99) Calcium Level 9.0 mg/dL (8.5-10.1) Magnesium Level 2.6 mg/dL (1.8-2.4) Micro Microbiology 03/06/18 Blood Culture - Preliminary, Resulted NO GROWTH AFTER 1 DAY Objective Assessment GNR sepsis - POA 03/05 fever - better leuokopenia UTI - POA - ecoli EC fistula Atypical chest pain Constipation Plan Plan of Care discont Zyvox as no GPC and may help with nausea Cont Zosyn F/u labs (CBC in am) and cults - blood and urine d/w ABBY Culp MD Mar 09, 2018 09:19
--- NOTE | 2018-03-09 09:27 | PDOC ---
Subjective: Subjective: Eating some PO - still tells me "not better" and vomited yesterday (not yet today). Objective: Vital Signs: Vital Signs Date Time Temp Pulse Resp B/P (MAP) Pulse Ox O2 Delivery O2 Flow Rate FiO2 03/09/18 07:59 98 Room Air 03/09/18 03:00 96.6 60 18 122/62 (82) 96.6 Labs: Laboratory Tests Test 03/09/18 07:58 White Blood Count 5.0 x10^3/uL Red Blood Count 3.99 x10^6/uL Hemoglobin 10.8 g/dL Hematocrit 33.3 % Mean Corpuscular Volume 84 fL Mean Corpuscular Hemoglobin 27 pg Mean Corpuscular Hemoglobin Concent 33 g/dL Red Cell Distribution Width 18.9 % Platelet Count 339 x10^3/uL Neutrophils (%) (Auto) 66 % Lymphocytes (%) (Auto) 17 % Monocytes (%) (Auto) 6 % Eosinophils (%) (Auto) 10 % Basophils (%) (Auto) 1 % Neutrophils # (Auto) 3.3 x10^3uL Lymphocytes # (Auto) 0.9 x10^3/uL Monocytes # (Auto) 0.3 x10^3/uL Eosinophils # (Auto) 0.5 x10^3/uL Basophils # (Auto) 0.0 x10^3/uL Sodium Level 140 mmol/L Potassium Level 5.5 mmol/L Chloride Level 108 mmol/L Carbon Dioxide Level 29 mmol/L Anion Gap 3 Blood Urea Nitrogen 18 mg/dL Creatinine 0.7 mg/dL Estimated GFR (Cockcroft-Gault) 102.6 Glucose Level 114 mg/dL Calcium Level 9.0 mg/dL Magnesium Level 2.6 mg/dL PE: GEN: NAD, wound care present ABD: bag covering fistulae NEURO/PSYCH: A & O 3 A/P: UTI Chronic enterocutaneous and enterovesical fistulae Chronic abd pain and vomiting -- Has TPN, taking some PO. Continue same per GI. MIESHA RICO Mar 09, 2018 09:27
[2018-03-09] MEDS ORDERED: IV DEXTROSE 5 %-0.45 % NACL 1,000 ML IV SCH (09:30)
--- NOTE | 2018-03-09 09:38 | PDOC ---
PROGRESS NOTES Subjective Subjective urine culture grew e. coli and sensitivities are pending. final blood culture report pending. frustrated with her wound care as a bag to collect the EC drainage was placed with adhesives to skin that were blocking EC fistula opening to skin. she has made revisions so that it is not blocking EC fistula openings to allow drainage. lab reviewed. potassium 5.5 and magnesium high. spoke with pharmacist. will d/c present bag of TPN and order iv fluids without kcl and decrease KCL and magnesium in new bag of TPN which will be available later tonight. will d/c iv fluids when TPN resumed. labs tomorrow. afebrile. Objective Objective Vital Signs Date Time Temp Pulse Resp B/P (MAP) Pulse Ox O2 Delivery O2 Flow Rate FiO2 03/09/18 07:59 98 Room Air 03/09/18 07:00 96.4 63 18 142/73 (96) 96.4 Intake and Output 03/09/18 07:00 Intake Total 940 ml Output Total 1200 ml Balance -260 ml Intake Oral 240 ml IV Total 700 ml Output Urine Total 1200 ml # Voids 3 Physical Exam Abdomen: Soft, Other (has adhesive to abdominal wall and collecting bag) Heart: Regular rate, Normal S1, Normal S2 Extremities: No edema General: Alert HEENT: Atraumatic Lungs: Clear to auscultation Neuro: Normal speech Psych/Mental Status: Mental status NL Skin: Other (chronic red excoriation abdominal wall) Assessment Assessment Problems GNR bacteremia 1/3 positive. with sepsis POA 2. e. coli in urine 3. Chest pain.atypical and resolved 4. Enterocutaneous fistula. 5. Enterovesical fistula. 6. Hypokalemia. resolved 7. Hypomagnesemia. resolved 8. Anemia of chronic disease. 9. Severe protein-calorie malnutrition. mild hyperkalemia Medical Problems: (1) Vesicoenteric fistula Status: Acute Plan Plan of Care d/c present TPN and await new TPN formula later tonight iv fluids until new bag of TPN started continue zyvox and zosyn await final blood and urine cultures lab tomorrow Comment Review of Relevant I have reviewed the following items lucila (where applicable) has been applied. Labs Laboratory Tests Test 03/08/18 05:30 03/09/18 07:58 Sodium Level 142 mmol/L (136-145) 140 mmol/L (136-145) Potassium Level 5.3 mmol/L (3.5-5.1) 5.5 mmol/L (3.5-5.1) Chloride Level 109 mmol/L (98-107) 108 mmol/L (98-107) Carbon Dioxide Level 28 mmol/L (21-32) 29 mmol/L (21-32) Anion Gap 5 (6-14) 3 (6-14) Blood Urea Nitrogen 16 mg/dL (7-20) 18 mg/dL (7-20) Creatinine 0.7 mg/dL (0.6-1.0) 0.7 mg/dL (0.6-1.0) Estimated GFR (Cockcroft-Gault) 102.6 102.6 Glucose Level 82 mg/dL (70-99) 114 mg/dL (70-99) Calcium Level 8.7 mg/dL (8.5-10.1) 9.0 mg/dL (8.5-10.1) Phosphorus Level 3.7 mg/dL (2.6-4.7) Magnesium Level 2.7 mg/dL (1.8-2.4) 2.6 mg/dL (1.8-2.4) White Blood Count 5.0 x10^3/uL (4.0-11.0) Red Blood Count 3.99 x10^6/uL (3.50-5.40) Hemoglobin 10.8 g/dL (12.0-15.5) Hematocrit 33.3 % (36.0-47.0) Mean Corpuscular Volume 84 fL (79-100) Mean Corpuscular Hemoglobin 27 pg (25-35) Mean Corpuscular Hemoglobin Concent 33 g/dL (31-37) Red Cell Distribution Width 18.9 % (11.5-14.5) Platelet Count 339 x10^3/uL (140-400) Neutrophils (%) (Auto) 66 % (31-73) Lymphocytes (%) (Auto) 17 % (24-48) Monocytes (%) (Auto) 6 % (0-9) Eosinophils (%) (Auto) 10 % (0-3) Basophils (%) (Auto) 1 % (0-3) Neutrophils # (Auto) 3.3 x10^3uL (1.8-7.7) Lymphocytes # (Auto) 0.9 x10^3/uL (1.0-4.8) Monocytes # (Auto) 0.3 x10^3/uL (0.0-1.1) Eosinophils # (Auto) 0.5 x10^3/uL (0.0-0.7) Basophils # (Auto) 0.0 x10^3/uL (0.0-0.2) Laboratory Tests Test 03/09/18 07:58 White Blood Count 5.0 x10^3/uL (4.0-11.0) Red Blood Count 3.99 x10^6/uL (3.50-5.40) Hemoglobin 10.8 g/dL (12.0-15.5) Hematocrit 33.3 % (36.0-47.0) Mean Corpuscular Volume 84 fL (79-100) Mean Corpuscular Hemoglobin 27 pg (25-35) Mean Corpuscular Hemoglobin Concent 33 g/dL (31-37) Red Cell Distribution Width 18.9 % (11.5-14.5) Platelet Count 339 x10^3/uL (140-400) Neutrophils (%) (Auto) 66 % (31-73) Lymphocytes (%) (Auto) 17 % (24-48) Monocytes (%) (Auto) 6 % (0-9) Eosinophils (%) (Auto) 10 % (0-3) Basophils (%) (Auto) 1 % (0-3) Neutrophils # (Auto) 3.3 x10^3uL (1.8-7.7) Lymphocytes # (Auto) 0.9 x10^3/uL (1.0-4.8) Monocytes # (Auto) 0.3 x10^3/uL (0.0-1.1) Eosinophils # (Auto) 0.5 x10^3/uL (0.0-0.7) Basophils # (Auto) 0.0 x10^3/uL (0.0-0.2) Sodium Level 140 mmol/L (136-145) Potassium Level 5.5 mmol/L (3.5-5.1) Chloride Level 108 mmol/L (98-107) Carbon Dioxide Level 29 mmol/L (21-32) Anion Gap 3 (6-14) Blood Urea Nitrogen 18 mg/dL (7-20) Creatinine 0.7 mg/dL (0.6-1.0) Estimated GFR (Cockcroft-Gault) 102.6 Glucose Level 114 mg/dL (70-99) Calcium Level 9.0 mg/dL (8.5-10.1) Magnesium Level 2.6 mg/dL (1.8-2.4) Microbiology 03/06/18 Blood Culture - Preliminary, Resulted NO GROWTH AFTER 3 DAYS 03/05/18 Urine Culture - Preliminary, Resulted 03/05/18 Urine Culture Result 1 (ROYA) - Preliminary, Resulted Medications Current Medications Sodium Chloride 1,000 ml @ 1,000 mls/hr 1X ONCE IV Last administered on at 23:47; Start 03/05/18 at 23:15; Stop 03/06/18 at 00:14; Status DC Fentanyl Citrate (Fentanyl 2ml Vial) 75 mcg 1X ONCE IV Last administered on at 23:46; Start 03/05/18 at 23:15; Stop 03/05/18 at 23:16; Status DC Ceftriaxone Sodium 1 gm/ Dextrose 50 ml @ 100 mls/hr Q24H IV ; Start 03/05/18 at 23:15; Status UNV Ceftriaxone Sodium 50 ml @ 100 mls/hr 1X ONCE IV ; Start 03/05/18 at 23:15; Stop 03/05/18 at 23:44; Status Cancel Ceftriaxone Sodium (Rocephin) 1 gm Q24H IVP ; Start 03/06/18 at 21:00; Status Cancel Ceftriaxone Sodium 50 ml @ 100 mls/hr 1X ONCE IV Last administered on at 23:47; Start 03/05/18 at 23:30; Stop 03/05/18 at 23:59; Status DC Info (Tpn Per Pharmacy) 1 each PRN DAILY PRN MC SEE COMMENTS Last administered on 03/08/18at 13:12; Start 03/06/18 at 00:15 Amino Acids/ Glycerin/ Electrolytes 1,000 ml @ 80 mls/hr [id number] IV Last administered on 03/06/18at 02:23; Start 03/06/18 at 01:30; Stop 03/06/18 at 21:59 ; Status DC Hydromorphone HCl (Dilaudid) 2 mg PRN Q6HRS PRN PO PAIN; Start 03/06/18 at 00: 15; Stop 03/06/18 at 10:54; Status DC Ondansetron HCl (Zofran) 4 mg PRN Q8HRS PRN IV NAUSEA/VOMITING Last administered on 03/06/18at 16:40; Start 03/06/18 at 00:15; Stop 03/07/18 at 00:14 ; Status DC Fentanyl Citrate (Fentanyl 2ml Vial) 50 mcg PRN Q2HR PRN IV PAIN Last administered on 03/06/18at 02:40; Start 03/06/18 at 00:15; Stop 03/07/18 at 00:14 ; Status DC Aspirin (Elma Aspirin) 325 mg 1X ONCE PO Last administered on 03/06/18at 00:33 ; Start 03/06/18 at 00:30; Stop 03/06/18 at 00:31; Status DC Potassium Chloride (Klor-Con) 40 meq 1X ONCE PO Last administered on at 01:14; Start 03/06/18 at 00:30; Stop 03/06/18 at 00:31; Status DC Potassium Chloride (KCl Oral Soln) 20 meq STK-MED ONCE .ROUTE ; Start 03/06/18 at 01:22; Stop 03/06/18 at 01:23; Status DC Influenza Virus Vaccine (Afluria Trivalent [id number] Syringe) 0.5 ml ONCE ONCE VAX IM Last administered on 03/06/18at 13:59; Start 03/06/18 at 09:00; Stop at 09:01; Status DC Info (Do NOT chart on this placeholder) 1 each PRN 1X PRN MC SEE COMMENTS; Start 03/06/18 at 03:15; Status Cancel Linezolid/Dextrose 300 ml @ 300 mls/hr Q12HR IV Last administered on at 20:44; Start 03/06/18 at 12:00; Stop 03/09/18 at 09:19; Status DC Piperacillin Sod/ Tazobactam Sod 3.375 gm/Sodium Chloride 50 ml @ 100 mls/hr Q6HRS IV Last administered on 03/09/18at 05:24; Start 03/06/18 at 12:00 Acetaminophen (Tylenol) 650 mg PRN Q6HRS PRN PO MILD PAIN / TEMP; Start at 10:45 Sertraline HCl (Zoloft) 50 mg DAILY PO Last administered on 03/09/18at 07:59; Start 03/06/18 at 12:00 Lorazepam (Ativan) 0.5 mg PRN Q6HRS PRN PO ANXIETY / AGITATION Last administered on 03/07/18at 02:29; Start 03/06/18 at 10:45 Fentanyl (Duragesic 25mcg/ Hr Patch) 1 patch Q3DAYS TD Last administered on 07:59; Start 03/06/18 at 12:00 Ondansetron HCl (Zofran Odt) 4 mg PRN Q6HRS PRN PO NAUSEA/VOMITING Last administered on 03/07/18at 19:24; Start 03/06/18 at 10:45 Hydromorphone HCl (Dilaudid) 2 mg PRN Q4HRS PRN IV MODERATE PAIN Last administered on 03/08/18at 18:11; Start 03/06/18 at 10:45 Hydromorphone HCl (Dilaudid) 4 mg PRN Q4HRS PRN IV SEVERE PAIN Last administered on 03/09/18at 02:19; Start 03/06/18 at 10:45 Diphenhydramine HCl (Benadryl) 25 mg PRN Q6HRS PRN PO ITCHING; Start 03/06/18 at 10:45 Pantoprazole Sodium (Protonix) 40 mg DAILYAC PO Last administered on 03/09/18at 07:58; Start 03/06/18 at 12:00 Zolpidem Tartrate (Ambien) 5 mg PRN QHS PRN PO INSOMNIA; Start 03/06/18 at 10: 45 Magnesium Sulfate 50 ml @ 25 mls/hr 1X ONCE IV Last administered on 03/06/18at 14:02; Start 03/06/18 at 12:00; Stop 03/06/18 at 13:59; Status DC Potassium Chloride/Water 50 ml @ 50 mls/hr Q1H IV Last administered on at 12:00; Start 03/06/18 at 11:00; Stop 03/06/18 at 12:59; Status DC Lidocaine (Xylocaine) 1 sang BID TP Last administered on 03/09/18at 08:00; Start 03/06/18 at 12:00 Zinc Oxide (Zinc Oxide 20% Topical) 1 sang BID TP Last administered on at 08:00; Start 03/06/18 at 12:00 Sodium Chloride 210 meq/Potassium Chloride 60 meq/ Potassium Phosphate 6.8 mmol/ Magnesium Sulfate 32 meq/ Multivitamins 10 ml/Chromium/ Copper/Manganese/ Seleni /Zn 1 ml/ Potassium Acetate 20 meq/Total Parenteral Nutrition/Amino Acids/ Dextrose/ Fat Emulsion Intravenous 1,920 ml @ 80 mls/hr TPN CONT IV Last administered on 03/06/18at 21:07; Start 03/06/18 at 22:00; Stop 03/07/18 at 21:59 ; Status DC Nystatin (Mycostatin) 1 sang BID TP Last administered on 03/09/18at 08:00; Start 03/06/18 at 21:00 Sodium Chloride 210 meq/Potassium Chloride 60 meq/ Potassium Phosphate 6.8 mmol/ Magnesium Sulfate 32 meq/ Multivitamins 10 ml/Chromium/ Copper/Manganese/ Seleni /Zn 1 ml/ Potassium Acetate 20 meq/Total Parenteral Nutrition/Amino Acids/ Dextrose/ Fat Emulsion Intravenous 1,920 ml @ 80 mls/hr TPN CONT IV Last administered on 03/07/18at 21:45; Start 03/07/18 at 22:00; Stop 03/08/18 at 21:59 ; Status DC Sodium Chloride 210 meq/Potassium Chloride 40 meq/ Potassium Phosphate 6.8 mmol/ Magnesium Sulfate 26 meq/ Multivitamins 10 ml/Chromium/ Copper/Manganese/ Seleni /Zn 1 ml/ Potassium Acetate 20 meq/Total Parenteral Nutrition/Amino Acids/ Dextrose/ Fat Emulsion Intravenous 1,920 ml @ 80 mls/hr TPN CONT IV Last administered on 03/08/18at 22:01; Start 03/08/18 at 22:00; Stop 03/09/18 at 21:59 Alteplase, Recombinant (Cathflo) 4 mg 1X ONCE INT CAT Last administered on at 07:58; Start 03/09/18 at 06:00; Stop 03/09/18 at 06:01; Status DC Active Scripts Active FENTANYL 25mcg/hr (Fentanyl) 1 Each Patch.td72 1 Patch TD Q72H 30 Days Sertraline Hcl 50 Mg Tablet 50 Mg PO DAILY 30 Days Famotidine 20 Mg Tablet 20 Mg PO BID 60 Days Lidocaine 35.44 Gm Oint...g. 1 Sang TP BID Reported Zofran Odt (Ondansetron) 4 Mg Tab.rapdis 1 Tab SL PRN Q8HRS PRN Zinc Oxide 56.7 Gm Oint...g. 56.7 Gm TP PRN BID Dilaudid (Hydromorphone Hcl) 2 Mg Tablet 1 Tab PO PRN QID PRN Lorazepam 0.5 Mg Tablet 0.5 Mg PO Q6HRS PRN Vitals/I & O Vital Sign - Last 24 Hours 03/08/18 03/08/18 03/08/18 03/08/18 10:37 11:00 15:00 18:11 Temp 96.1 97.5 96.1 97.5 Pulse 60 60 Resp 18 18 B/P (MAP) 142/60 (87) 123/65 (84) Pulse Ox 99 100 O2 Delivery Room Air Room Air Room Air Room Air 03/08/18 03/08/18 03/08/18 03/08/18 19:00 19:07 19:33 22:00 Temp 97.1 97.1 Pulse 59 Resp 18 18 B/P (MAP) 154/91 (112) Pulse Ox 100 100 O2 Delivery Room Air Room Air Room Air Room Air 03/08/18 03/09/18 03/09/18 03/09/18 23:00 02:19 02:49 03:00 Temp 96.6 96.6 96.6 96.6 Pulse 66 60 Resp 18 18 B/P (MAP) 138/61 (86) 122/62 (82) Pulse Ox 97 97 97 98 O2 Delivery Room Air Room Air Room Air Room Air 03/09/18 03/09/18 07:00 07:59 Temp 96.4 96.4 Pulse 63 Resp 18 B/P (MAP) 142/73 (96) Pulse Ox 100 98 O2 Delivery Room Air Room Air Intake and Output 03/08/18 03/08/18 03/09/18 15:00 23:00 07:00 Intake Total 470 ml 300 ml 170 ml Output Total 1200 ml Balance 470 ml 300 ml -1030 ml Nutrition Consultation Dietary Evaluation: Recommendations by RD: PPN/TPN Comments: continue home TPN Pt calling dietary for foods tolerated Expected Outcomes/Goals: to meet > 75% est nutr needs Malnutrition Findings: Body Fat Depletion (Non Severe: Mild Depletion Weight Status: Appropriate BENITA LUTZ MD Mar 09, 2018 09:38
[2018-03-09 11:00] VITALS: BP 158/70
[2018-03-09] MEDS: ONDANSETRON ODT 4 MG TAB.RAPDIS. PO PRN (14:11)
[2018-03-09 15:00] VITALS: BP 124/56
[2018-03-09] MEDS: TPN PER PHARMACY MC PRN (16:10)
[2018-03-09 19:00] VITALS: BP 135/63
[2018-03-09] MEDS ORDERED: TOTAL PARENTERAL NUTRITION IV SCH ×10 (22:00)
[2018-03-09] MEDS ORDERED: [UNRECOGNIZED DRUG - OTHER] IV SCH ×10 (22:00)
[2018-03-09] MEDS ORDERED: AMINO ACIDS IV SCH ×10 (22:00)
[2018-03-09] MEDS ORDERED: DEXTROSE 70% IV SCH ×10 (22:00)
[2018-03-09 23:00] VITALS: BP 156/92
[2018-03-10] MEDS: PIPERACILLIN/TAZOBACTAM 3.375 GM in IV NORMAL SALINE 50ML 50 ML IV SCH ×4 (00:04→17:24)
[2018-03-10] MEDS: HYDROmorphone 2 MG/ML VIAL IV PRN ×5 (00:05→21:33)
[2018-03-10 03:00] VITALS: BP 156/92
[2018-03-10 06:35] LABS: ALBUMIN 2.2 g/dL (3.4-5.0); ALBUMIN/GLOBULIN RATIO 0.4 (1.0-1.7); CALCIUM 8.7 mg/dL (8.5-10.1); CREATININE 0.6 mg/dL (0.6-1.0); GFR 122.6; PHOSPHORUS 3.5 mg/dL (2.6-4.7); POTASSIUM 4.8 mmol/L (3.5-5.1); TOTAL BILIRUBIN 0.3 mg/dL (0.2-1.0); TOTAL PROTEIN 7.4 g/dL (6.4-8.2)
[2018-03-10 07:00] VITALS: BP 138/69
[2018-03-10] MEDS: PANTOPRAZOLE 40 MG TABLET.DR. PO SCH (07:49)
[2018-03-10] MEDS: NYSTATIN 100,000 UNIT/GM TOPICAL CREAM 15GM TUBE. TP SCH ×2 (07:50→21:33)
[2018-03-10] MEDS: ZINC OXIDE 20% TOPICAL OINTMENT 28GM TUBE. TP SCH ×2 (07:50→21:34)
[2018-03-10] MEDS: LIDOCAINE 5% TOPICAL OINTMENT 35GM TUBE. TP SCH ×2 (07:50→21:33)
[2018-03-10] MEDS: SERTRALINE 50 MG TABLET. PO SCH (08:44)
--- NOTE | 2018-03-10 09:21 | PDOC ---
Infectious Disease Note Subjective Subjective Doing ok. did have some nausea but no vomiting + Bm. No F/C/S/SOA/rash ROS ROS o/w neg Vital Sign Vital Signs Vital Signs Date Time Temp Pulse Resp B/P (MAP) Pulse Ox O2 Delivery O2 Flow Rate FiO2 03/10/18 05:15 Room Air 03/10/18 03:00 98.2 68 18 156/92 (113) 99 98.2 Physical Exam PHYSICAL EXAM CONSTITUTIONAL: She is pleasant. She is cooperative. She is in no acute distress. HEENT: Pupils are equal and reactive. Oral cavity, pharynx is clear. NECK: Supple, without JVD. LUNGS: Clear to auscultation. HEART: S1, S2. She has a power PICC in her right chest without signs of any complications. ABDOMEN: Soft, nondistended. She has an EC fistula with some mild skin excoriation, but no gross signs of active infection. EXTREMITIES: Without clubbing, cyanosis or gross edema. SKIN: Warm to touch without signs of rash. NEUROLOGIC: She is nonfocal and appropriate. PSYCHIATRIC: Affect is pleasant. Labs Lab Laboratory Tests Test 03/10/18 03:40 03/10/18 05:45 Glucose (Fingerstick) 106 mg/dL (70-99) Sodium Level 139 mmol/L (136-145) Potassium Level 4.8 mmol/L (3.5-5.1) Chloride Level 106 mmol/L (98-107) Carbon Dioxide Level 26 mmol/L (21-32) Anion Gap 7 (6-14) Blood Urea Nitrogen 13 mg/dL (7-20) Creatinine 0.6 mg/dL (0.6-1.0) Estimated GFR (Cockcroft-Gault) 122.6 BUN/Creatinine Ratio 22 (6-20) Glucose Level 87 mg/dL (70-99) Calcium Level 8.7 mg/dL (8.5-10.1) Phosphorus Level 3.5 mg/dL (2.6-4.7) Magnesium Level 2.0 mg/dL (1.8-2.4) Total Bilirubin 0.3 mg/dL (0.2-1.0) Aspartate Amino Transf (AST/SGOT) 29 U/L (15-37) Alanine Aminotransferase (ALT/SGPT) 23 U/L (14-59) Alkaline Phosphatase 185 U/L (46-116) Total Protein 7.4 g/dL (6.4-8.2) Albumin 2.2 g/dL (3.4-5.0) Albumin/Globulin Ratio 0.4 (1.0-1.7) Micro Escherichia coli Greater than 100,000 colony forming units per mL Cefazolin <=4 ug/mL Cefazolin with an ROYA <=16 predicts susceptibility to the oral agents cefaclor, cefdinir, cefpodoxime, cefprozil, cefuroxime, cephalexin, and loracarbef when used for therapy of uncomplicated urinary tract infections due to E. coli, Klebsiella pneumoniae, and Proteus mirabilis. ANTIMICROBIAL SUSCEPTIBILITY Final Comment S = Susceptible; I = Intermediate; R = Resistant P = Positive; N = Negative MICS are expressed in micrograms per mL Antibiotic RSLT#1 RSLT#2 RSLT#3 RSLT#4 Amoxicillin/Clavulanic Acid S =4 Ampicillin S =8 Ceftriaxone S<=0.25 Cefuroxime I =16 Ciprofloxacin R>=4 Ertapenem S<=0.12 Gentamicin S<=1 Imipenem S<=0.25 Levofloxacin R>=8 Meropenem S<=0.25 Nitrofurantoin S =32 Tetracycline S =4 Tobramycin S<=1 Trimethoprim/Sulfa R>=320 Microbiology 03/06/18 Blood Culture - Preliminary, Resulted NO GROWTH AFTER 1 DAY Objective Assessment GNR sepsis - POA 03/05 1/3 bottles fever - better leuokopenia -better UTI - POA - ecoli EC fistula Atypical chest pain Constipation Plan Plan of Care Cont Zosyn F/u labs and cults - blood ABBY MOTT MD Mar 10, 2018 09:21
--- NOTE | 2018-03-10 10:53 | PDOC ---
PROGRESS NOTES Subjective Subjective feels better. she had a BM. vomited once last night. afebrile. lab reviewed. Objective Objective Vital Signs Date Time Temp Pulse Resp B/P (MAP) Pulse Ox O2 Delivery O2 Flow Rate FiO2 03/10/18 10:29 18 Room Air 03/10/18 07:00 98.4 65 138/69 (92) 100 98.4 Intake and Output 03/10/18 07:00 Intake Total 200 ml Balance 200 ml Intake Oral 200 ml # Voids 2 Physical Exam Abdomen: Soft, Other (enterocutaneous fisula) Heart: Regular rate, Normal S1, Normal S2 Extremities: No edema General: Alert HEENT: Atraumatic Lungs: Clear to auscultation Neuro: Normal speech Psych/Mental Status: Mental status NL Skin: No rashes Assessment Assessment ProblemsGNR bacteremia 1/3 positive. with sepsis POA 2. e. coli in urine 3. Chest pain.atypical and resolved 4. Enterocutaneous fistula. 5. Enterovesical fistula. 6. Hypokalemia. resolved 7. Hypomagnesemia. resolved 8. Anemia of chronic disease. 9. Severe protein-calorie malnutrition. Medical Problems: (1) Vesicoenteric fistula Status: Acute Plan Plan of Care continue iv zosyn continue TPN lab tomorrow zofran prn Comment Review of Relevant I have reviewed the following items luicla (where applicable) has been applied. Labs Laboratory Tests Test 03/09/18 07:58 03/10/18 03:40 03/10/18 05:45 White Blood Count 5.0 x10^3/uL (4.0-11.0) Red Blood Count 3.99 x10^6/uL (3.50-5.40) Hemoglobin 10.8 g/dL (12.0-15.5) Hematocrit 33.3 % (36.0-47.0) Mean Corpuscular Volume 84 fL (79-100) Mean Corpuscular Hemoglobin 27 pg (25-35) Mean Corpuscular Hemoglobin Concent 33 g/dL (31-37) Red Cell Distribution Width 18.9 % (11.5-14.5) Platelet Count 339 x10^3/uL (140-400) Neutrophils (%) (Auto) 66 % (31-73) Lymphocytes (%) (Auto) 17 % (24-48) Monocytes (%) (Auto) 6 % (0-9) Eosinophils (%) (Auto) 10 % (0-3) Basophils (%) (Auto) 1 % (0-3) Neutrophils # (Auto) 3.3 x10^3uL (1.8-7.7) Lymphocytes # (Auto) 0.9 x10^3/uL (1.0-4.8) Monocytes # (Auto) 0.3 x10^3/uL (0.0-1.1) Eosinophils # (Auto) 0.5 x10^3/uL (0.0-0.7) Basophils # (Auto) 0.0 x10^3/uL (0.0-0.2) Sodium Level 140 mmol/L (136-145) 139 mmol/L (136-145) Potassium Level 5.5 mmol/L (3.5-5.1) 4.8 mmol/L (3.5-5.1) Chloride Level 108 mmol/L (98-107) 106 mmol/L (98-107) Carbon Dioxide Level 29 mmol/L (21-32) 26 mmol/L (21-32) Anion Gap 3 (6-14) 7 (6-14) Blood Urea Nitrogen 18 mg/dL (7-20) 13 mg/dL (7-20) Creatinine 0.7 mg/dL (0.6-1.0) 0.6 mg/dL (0.6-1.0) Estimated GFR (Cockcroft-Gault) 102.6 122.6 Glucose Level 114 mg/dL (70-99) 87 mg/dL (70-99) Calcium Level 9.0 mg/dL (8.5-10.1) 8.7 mg/dL (8.5-10.1) Magnesium Level 2.6 mg/dL (1.8-2.4) 2.0 mg/dL (1.8-2.4) Glucose (Fingerstick) 106 mg/dL (70-99) BUN/Creatinine Ratio 22 (6-20) Phosphorus Level 3.5 mg/dL (2.6-4.7) Total Bilirubin 0.3 mg/dL (0.2-1.0) Aspartate Amino Transf (AST/SGOT) 29 U/L (15-37) Alanine Aminotransferase (ALT/SGPT) 23 U/L (14-59) Alkaline Phosphatase 185 U/L (46-116) Total Protein 7.4 g/dL (6.4-8.2) Albumin 2.2 g/dL (3.4-5.0) Albumin/Globulin Ratio 0.4 (1.0-1.7) Laboratory Tests Test 03/10/18 03:40 03/10/18 05:45 Glucose (Fingerstick) 106 mg/dL (70-99) Sodium Level 139 mmol/L (136-145) Potassium Level 4.8 mmol/L (3.5-5.1) Chloride Level 106 mmol/L (98-107) Carbon Dioxide Level 26 mmol/L (21-32) Anion Gap 7 (6-14) Blood Urea Nitrogen 13 mg/dL (7-20) Creatinine 0.6 mg/dL (0.6-1.0) Estimated GFR (Cockcroft-Gault) 122.6 BUN/Creatinine Ratio 22 (6-20) Glucose Level 87 mg/dL (70-99) Calcium Level 8.7 mg/dL (8.5-10.1) Phosphorus Level 3.5 mg/dL (2.6-4.7) Magnesium Level 2.0 mg/dL (1.8-2.4) Total Bilirubin 0.3 mg/dL (0.2-1.0) Aspartate Amino Transf (AST/SGOT) 29 U/L (15-37) Alanine Aminotransferase (ALT/SGPT) 23 U/L (14-59) Alkaline Phosphatase 185 U/L (46-116) Total Protein 7.4 g/dL (6.4-8.2) Albumin 2.2 g/dL (3.4-5.0) Albumin/Globulin Ratio 0.4 (1.0-1.7) Microbiology 03/06/18 Blood Culture - Preliminary, Resulted NO GROWTH AFTER 4 DAYS 03/05/18 Urine Culture - Final, Complete 03/05/18 Urine Culture Result 1 (ROYA) - Final, Complete 03/05/18 Antimicrobic Susceptibility - Final, Complete Medications Current Medications Sodium Chloride 1,000 ml @ 1,000 mls/hr 1X ONCE IV Last administered on at 23:47; Start 03/05/18 at 23:15; Stop 03/06/18 at 00:14; Status DC Fentanyl Citrate (Fentanyl 2ml Vial) 75 mcg 1X ONCE IV Last administered on at 23:46; Start 03/05/18 at 23:15; Stop 03/05/18 at 23:16; Status DC Ceftriaxone Sodium 1 gm/ Dextrose 50 ml @ 100 mls/hr Q24H IV ; Start 03/05/18 at 23:15; Status UNV Ceftriaxone Sodium 50 ml @ 100 mls/hr 1X ONCE IV ; Start 03/05/18 at 23:15; Stop 03/05/18 at 23:44; Status Cancel Ceftriaxone Sodium (Rocephin) 1 gm Q24H IVP ; Start 03/06/18 at 21:00; Status Cancel Ceftriaxone Sodium 50 ml @ 100 mls/hr 1X ONCE IV Last administered on at 23:47; Start 03/05/18 at 23:30; Stop 03/05/18 at 23:59; Status DC Info (Tpn Per Pharmacy) 1 each PRN DAILY PRN MC SEE COMMENTS Last administered on 03/09/18at 16:10; Start 03/06/18 at 00:15 Amino Acids/ Glycerin/ Electrolytes 1,000 ml @ 80 mls/hr [id number] IV Last administered on 03/06/18at 02:23; Start 03/06/18 at 01:30; Stop 03/06/18 at 21:59 ; Status DC Hydromorphone HCl (Dilaudid) 2 mg PRN Q6HRS PRN PO PAIN; Start 03/06/18 at 00: 15; Stop 03/06/18 at 10:54; Status DC Ondansetron HCl (Zofran) 4 mg PRN Q8HRS PRN IV NAUSEA/VOMITING Last administered on 03/06/18at 16:40; Start 03/06/18 at 00:15; Stop 03/07/18 at 00:14 ; Status DC Fentanyl Citrate (Fentanyl 2ml Vial) 50 mcg PRN Q2HR PRN IV PAIN Last administered on 03/06/18at 02:40; Start 03/06/18 at 00:15; Stop 03/07/18 at 00:14 ; Status DC Aspirin (Elma Aspirin) 325 mg 1X ONCE PO Last administered on 03/06/18at 00:33 ; Start 03/06/18 at 00:30; Stop 03/06/18 at 00:31; Status DC Potassium Chloride (Klor-Con) 40 meq 1X ONCE PO Last administered on at 01:14; Start 03/06/18 at 00:30; Stop 03/06/18 at 00:31; Status DC Potassium Chloride (KCl Oral Soln) 20 meq STK-MED ONCE .ROUTE ; Start 03/06/18 at 01:22; Stop 03/06/18 at 01:23; Status DC Influenza Virus Vaccine (Afluria Trivalent [id number] Syringe) 0.5 ml ONCE ONCE VAX IM Last administered on 03/06/18at 13:59; Start 03/06/18 at 09:00; Stop at 09:01; Status DC Info (Do NOT chart on this placeholder) 1 each PRN 1X PRN MC SEE COMMENTS; Start 03/06/18 at 03:15; Status Cancel Linezolid/Dextrose 300 ml @ 300 mls/hr Q12HR IV Last administered on at 20:44; Start 03/06/18 at 12:00; Stop 03/09/18 at 09:19; Status DC Piperacillin Sod/ Tazobactam Sod 3.375 gm/Sodium Chloride 50 ml @ 100 mls/hr Q6HRS IV Last administered on 03/10/18at 06:00; Start 03/06/18 at 12:00 Acetaminophen (Tylenol) 650 mg PRN Q6HRS PRN PO MILD PAIN / TEMP; Start at 10:45 Sertraline HCl (Zoloft) 50 mg DAILY PO Last administered on 03/10/18at 08:44; Start 03/06/18 at 12:00 Lorazepam (Ativan) 0.5 mg PRN Q6HRS PRN PO ANXIETY / AGITATION Last administered on 03/07/18at 02:29; Start 03/06/18 at 10:45 Fentanyl (Duragesic 25mcg/ Hr Patch) 1 patch Q3DAYS TD Last administered on at 07:59; Start 03/06/18 at 12:00 Ondansetron HCl (Zofran Odt) 4 mg PRN Q6HRS PRN PO NAUSEA/VOMITING Last administered on 03/09/18at 14:11; Start 03/06/18 at 10:45 Hydromorphone HCl (Dilaudid) 2 mg PRN Q4HRS PRN IV MODERATE PAIN Last administered on 03/10/18at 04:42; Start 03/06/18 at 10:45 Hydromorphone HCl (Dilaudid) 4 mg PRN Q4HRS PRN IV SEVERE PAIN Last administered on 03/10/18at 10:29; Start 03/06/18 at 10:45 Diphenhydramine HCl (Benadryl) 25 mg PRN Q6HRS PRN PO ITCHING; Start 03/06/18 at 10:45 Pantoprazole Sodium (Protonix) 40 mg DAILYAC PO Last administered on 03/10/18at 07:49; Start 03/06/18 at 12:00 Zolpidem Tartrate (Ambien) 5 mg PRN QHS PRN PO INSOMNIA; Start 03/06/18 at 10: 45 Magnesium Sulfate 50 ml @ 25 mls/hr 1X ONCE IV Last administered on 03/06/18at 14:02; Start 03/06/18 at 12:00; Stop 03/06/18 at 13:59; Status DC Potassium Chloride/Water 50 ml @ 50 mls/hr Q1H IV Last administered on at 12:00; Start 03/06/18 at 11:00; Stop 03/06/18 at 12:59; Status DC Lidocaine (Xylocaine) 1 sang BID TP Last administered on 03/10/18at 07:50; Start 03/06/18 at 12:00 Zinc Oxide (Zinc Oxide 20% Topical) 1 sang BID TP Last administered on at 07:50; Start 03/06/18 at 12:00 Sodium Chloride 210 meq/Potassium Chloride 60 meq/ Potassium Phosphate 6.8 mmol/ Magnesium Sulfate 32 meq/ Multivitamins 10 ml/Chromium/ Copper/Manganese/ Seleni /Zn 1 ml/ Potassium Acetate 20 meq/Total Parenteral Nutrition/Amino Acids/ Dextrose/ Fat Emulsion Intravenous 1,920 ml @ 80 mls/hr TPN CONT IV Last administered on 03/06/18at 21:07; Start 03/06/18 at 22:00; Stop 03/07/18 at 21:59 ; Status DC Nystatin (Mycostatin) 1 sang BID TP Last administered on 03/10/18at 07:50; Start 03/06/18 at 21:00 Sodium Chloride 210 meq/Potassium Chloride 60 meq/ Potassium Phosphate 6.8 mmol/ Magnesium Sulfate 32 meq/ Multivitamins 10 ml/Chromium/ Copper/Manganese/ Seleni /Zn 1 ml/ Potassium Acetate 20 meq/Total Parenteral Nutrition/Amino Acids/ Dextrose/ Fat Emulsion Intravenous 1,920 ml @ 80 mls/hr TPN CONT IV Last administered on 03/07/18at 21:45; Start 03/07/18 at 22:00; Stop 03/08/18 at 21:59 ; Status DC Sodium Chloride 210 meq/Potassium Chloride 40 meq/ Potassium Phosphate 6.8 mmol/ Magnesium Sulfate 26 meq/ Multivitamins 10 ml/Chromium/ Copper/Manganese/ Seleni /Zn 1 ml/ Potassium Acetate 20 meq/Total Parenteral Nutrition/Amino Acids/ Dextrose/ Fat Emulsion Intravenous 1,920 ml @ 80 mls/hr TPN CONT IV Last administered on 03/08/18at 22:01; Start 03/08/18 at 22:00; Stop 03/09/18 at 21:59 ; Status DC Alteplase, Recombinant (Cathflo) 4 mg 1X ONCE INT CAT Last administered on at 07:58; Start 03/09/18 at 06:00; Stop 03/09/18 at 06:01; Status DC Dextrose/Sodium Chloride 1,000 ml @ 80 mls/hr [id number] IV Last administered on 03/09/18at 09:42; Start 03/09/18 at 09:30; Stop 03/09/18 at 21:59; Status DC Sodium Chloride 210 meq/Potassium Chloride 20 meq/ Potassium Acetate 20 meq/ Potassium Phosphate 6.8 mmol/Magnesium Sulfate 20 meq/ Multivitamins 10 ml/ Chromium/ Copper/Manganese/ Seleni/Zn 1 ml/ Total Parenteral Nutrition/Amino Acids/Dextrose/ Fat Emulsion Intravenous 1,920 ml @ 80 mls/hr TPN CONT IV Last administered on 03/09/18at 22:11; Start 03/09/18 at 22:00; Stop 03/10/18 at 21:59 Active Scripts Active FENTANYL 25mcg/hr (Fentanyl) 1 Each Patch.td72 1 Patch TD Q72H 30 Days Sertraline Hcl 50 Mg Tablet 50 Mg PO DAILY 30 Days Famotidine 20 Mg Tablet 20 Mg PO BID 60 Days Lidocaine 35.44 Gm Oint...g. 1 Sang TP BID Reported Zofran Odt (Ondansetron) 4 Mg Tab.rapdis 1 Tab SL PRN Q8HRS PRN Zinc Oxide 56.7 Gm Oint...g. 56.7 Gm TP PRN BID Dilaudid (Hydromorphone Hcl) 2 Mg Tablet 1 Tab PO PRN QID PRN Lorazepam 0.5 Mg Tablet 0.5 Mg PO Q6HRS PRN Vitals/I & O Vital Sign - Last 24 Hours 03/09/18 03/09/18 03/09/18 03/09/18 11:00 11:16 12:00 15:00 Temp 96.8 97.7 96.8 97.7 Pulse 69 65 Resp 18 18 18 18 B/P (MAP) 158/70 (99) 124/56 (78) Pulse Ox 94 98 100 O2 Delivery Room Air Room Air Room Air 03/09/18 03/09/18 03/09/18 03/09/18 19:00 19:51 20:00 23:00 Temp 98.2 98.2 98.2 98.2 Pulse 74 67 Resp 18 18 B/P (MAP) 135/63 (87) 156/92 (113) Pulse Ox 96 100 O2 Delivery Room Air Room Air Room Air Room Air 03/10/18 03/10/18 03/10/18 03/10/18 00:05 00:35 03:00 04:42 Temp 98.2 98.2 Pulse 68 Resp 18 B/P (MAP) 156/92 (113) Pulse Ox 99 O2 Delivery Room Air Room Air Room Air Room Air 03/10/18 03/10/18 03/10/18 05:15 07:00 10:29 Temp 98.4 98.4 Pulse 65 Resp 18 18 B/P (MAP) 138/69 (92) Pulse Ox 100 O2 Delivery Room Air Room Air Room Air Intake and Output 03/09/18 03/09/18 03/10/18 15:00 23:00 07:00 Intake Total 200 ml Balance 200 ml Nutrition Consultation Dietary Evaluation: Recommendations by RD: PPN/TPN Comments: continue home TPN continue with cardiac diet Expected Outcomes/Goals: to meet > 75% est nutr needs- met via po intake and TPN Malnutrition Findings: Body Fat Depletion (Non Severe: Mild Depletion Weight Status: Appropriate BENITA LUTZ MD Mar 10, 2018 10:52
[2018-03-10 11:00] VITALS: BP 138/88
--- NOTE | 2018-03-10 11:52 | PDOC ---
Subjective: Subjective: Just got pain meds, drowsy. Vomited last night, tolerated food this morning. Objective: Vital Signs: Vital Signs Date Time Temp Pulse Resp B/P (MAP) Pulse Ox O2 Delivery O2 Flow Rate FiO2 03/10/18 11:00 18 Room Air 03/10/18 07:00 98.4 65 138/69 (92) 100 98.4 Labs: Laboratory Tests Test 03/10/18 03:40 03/10/18 05:45 Glucose (Fingerstick) 106 mg/dL Sodium Level 139 mmol/L Potassium Level 4.8 mmol/L Chloride Level 106 mmol/L Carbon Dioxide Level 26 mmol/L Anion Gap 7 Blood Urea Nitrogen 13 mg/dL Creatinine 0.6 mg/dL Estimated GFR (Cockcroft-Gault) 122.6 BUN/Creatinine Ratio 22 Glucose Level 87 mg/dL Calcium Level 8.7 mg/dL Phosphorus Level 3.5 mg/dL Magnesium Level 2.0 mg/dL Total Bilirubin 0.3 mg/dL Aspartate Amino Transf (AST/SGOT) 29 U/L Alanine Aminotransferase (ALT/SGPT) 23 U/L Alkaline Phosphatase 185 U/L Total Protein 7.4 g/dL Albumin 2.2 g/dL Albumin/Globulin Ratio 0.4 PE: GEN: NAD LUNGS: CTAB HEART: RRR ABD: covered w/ towels NEURO/PSYCH: A & O 3, drowsy A/P: UTI/sepsis Chronic enterocutaneous and enterovesical fistulae Chronic abd pain and nausea -- Supportive care per GI. MIESHA RICO Mar 10, 2018 11:52
[2018-03-10] MEDS: TPN PER PHARMACY MC PRN (12:31)
[2018-03-10 15:00] VITALS: BP 140/70
[2018-03-10 19:00] VITALS: BP 148/68
[2018-03-10] MEDS ORDERED: AMINO ACIDS IV SCH ×10 (22:00)
[2018-03-10] MEDS ORDERED: [UNRECOGNIZED DRUG - OTHER] IV SCH ×10 (22:00)
[2018-03-10] MEDS ORDERED: TOTAL PARENTERAL NUTRITION IV SCH ×10 (22:00)
[2018-03-10] MEDS ORDERED: DEXTROSE 70% IV SCH ×10 (22:00)
[2018-03-10 22:54] VITALS: BP 146/67
[2018-03-11] MEDS: PIPERACILLIN/TAZOBACTAM 3.375 GM in IV NORMAL SALINE 50ML 50 ML IV SCH ×5 (00:01→23:15)
[2018-03-11] MEDS: HYDROmorphone 2 MG/ML VIAL IV PRN ×6 (01:34→23:15)
[2018-03-11 03:00] VITALS: BP 148/73
[2018-03-11 06:01] LABS: BASO % 1 % (0-3); EOS # 0.6 x10^3/uL (0.0-0.7); EOS % 16 % (0-3); HEMATOCRIT 27.8 % (36.0-47.0); LYMPH # 0.9 x10^3/uL (1.0-4.8); LYMPH % 24 % (24-48); MEAN CORPUSCULAR HEMOGLOBIN 27 pg (25-35); MEAN CORPUSCULAR HGB CONC 32 g/dL (31-37); MEAN CORPUSCULAR VOLUME 83 fL (79-100); MONO # 0.3 x10^3/uL (0.0-1.1); MONO % 8 % (0-9); NEUT # 1.9 x10^3uL (1.8-7.7); NEUT % 51 % (31-73); PLATELET COUNT 242 x10^3/uL (140-400); RED BLOOD COUNT 3.36 x10^6/uL (3.50-5.40); RED CELL DISTRIBUTION WIDTH 18.2 % (11.5-14.5); WHITE BLOOD COUNT 3.7 x10^3/uL (4.0-11.0)
[2018-03-11 06:14] LABS: CALCIUM 8.8 mg/dL (8.5-10.1); CREATININE 0.6 mg/dL (0.6-1.0); GFR 122.6; MAGNESIUM 2.1 mg/dL (1.8-2.4); POTASSIUM 4.8 mmol/L (3.5-5.1)
[2018-03-11 07:00] VITALS: BP 162/89
[2018-03-11] MEDS: NYSTATIN 100,000 UNIT/GM TOPICAL CREAM 15GM TUBE. TP SCH ×2 (07:39→21:49)
[2018-03-11] MEDS: ZINC OXIDE 20% TOPICAL OINTMENT 28GM TUBE. TP SCH ×2 (07:39→21:49)
[2018-03-11] MEDS: LIDOCAINE 5% TOPICAL OINTMENT 35GM TUBE. TP SCH ×2 (07:39→21:49)
[2018-03-11] MEDS: PANTOPRAZOLE 40 MG TABLET.DR. PO SCH (07:40)
[2018-03-11] MEDS: SERTRALINE 50 MG TABLET. PO SCH (07:40)
--- NOTE | 2018-03-11 07:57 | PDOC ---
Infectious Disease Note Subjective Subjective Doing ok. No nausea and no vomiting + Bm. No F/C/S/SOA/rash ROS ROS o/w neg Vital Sign Vital Signs Vital Signs Date Time Temp Pulse Resp B/P (MAP) Pulse Ox O2 Delivery O2 Flow Rate FiO2 03/11/18 06:13 Room Air 03/11/18 03:00 96.6 71 18 148/73 (98) 97 96.6 Physical Exam PHYSICAL EXAM CONSTITUTIONAL: She is pleasant. She is cooperative. She is in no acute distress. Looks well HEENT: Pupils are equal and reactive. Oral cavity, pharynx is clear. NECK: Supple, without JVD. LUNGS: Clear to auscultation. HEART: S1, S2. She has a power PICC in her right chest without signs of any complications. ABDOMEN: Soft, nondistended. She has an EC fistula with some mild skin excoriation, but no gross signs of active infection. EXTREMITIES: Without clubbing, cyanosis or gross edema. SKIN: Warm to touch without signs of rash. NEUROLOGIC: She is nonfocal and appropriate. PSYCHIATRIC: Affect is pleasant. Labs Lab Laboratory Tests Test 03/11/18 05:45 White Blood Count 3.7 x10^3/uL (4.0-11.0) Red Blood Count 3.36 x10^6/uL (3.50-5.40) Hemoglobin 9.0 g/dL (12.0-15.5) Hematocrit 27.8 % (36.0-47.0) Mean Corpuscular Volume 83 fL (79-100) Mean Corpuscular Hemoglobin 27 pg (25-35) Mean Corpuscular Hemoglobin Concent 32 g/dL (31-37) Red Cell Distribution Width 18.2 % (11.5-14.5) Platelet Count 242 x10^3/uL (140-400) Neutrophils (%) (Auto) 51 % (31-73) Lymphocytes (%) (Auto) 24 % (24-48) Monocytes (%) (Auto) 8 % (0-9) Eosinophils (%) (Auto) 16 % (0-3) Basophils (%) (Auto) 1 % (0-3) Neutrophils # (Auto) 1.9 x10^3uL (1.8-7.7) Lymphocytes # (Auto) 0.9 x10^3/uL (1.0-4.8) Monocytes # (Auto) 0.3 x10^3/uL (0.0-1.1) Eosinophils # (Auto) 0.6 x10^3/uL (0.0-0.7) Basophils # (Auto) 0.0 x10^3/uL (0.0-0.2) Sodium Level 140 mmol/L (136-145) Potassium Level 4.8 mmol/L (3.5-5.1) Chloride Level 108 mmol/L (98-107) Carbon Dioxide Level 25 mmol/L (21-32) Anion Gap 7 (6-14) Blood Urea Nitrogen 16 mg/dL (7-20) Creatinine 0.6 mg/dL (0.6-1.0) Estimated GFR (Cockcroft-Gault) 122.6 Glucose Level 86 mg/dL (70-99) Calcium Level 8.8 mg/dL (8.5-10.1) Magnesium Level 2.1 mg/dL (1.8-2.4) Micro Escherichia coli Greater than 100,000 colony forming units per mL Cefazolin <=4 ug/mL Cefazolin with an ROYA <=16 predicts susceptibility to the oral agents cefaclor, cefdinir, cefpodoxime, cefprozil, cefuroxime, cephalexin, and loracarbef when used for therapy of uncomplicated urinary tract infections due to E. coli, Klebsiella pneumoniae, and Proteus mirabilis. ANTIMICROBIAL SUSCEPTIBILITY Final Comment S = Susceptible; I = Intermediate; R = Resistant P = Positive; N = Negative MICS are expressed in micrograms per mL Antibiotic RSLT#1 RSLT#2 RSLT#3 RSLT#4 Amoxicillin/Clavulanic Acid S =4 Ampicillin S =8 Ceftriaxone S<=0.25 Cefuroxime I =16 Ciprofloxacin R>=4 Ertapenem S<=0.12 Gentamicin S<=1 Imipenem S<=0.25 Levofloxacin R>=8 Meropenem S<=0.25 Nitrofurantoin S =32 Tetracycline S =4 Tobramycin S<=1 Trimethoprim/Sulfa R>=320 Microbiology 03/06/18 Blood Culture - Preliminary, Resulted NO GROWTH AFTER 1 DAY Objective Assessment GNR sepsis - POA 03/05 06/16 bottles - no growth so far. ? contamination vs true but clinically much better fever - better leuokopenia - fluctuates UTI - POA - ecoli EC fistula Atypical chest pain Constipation Plan Plan of Care Cont Zosyn F/u labs and cults - blood ABBY MOTT MD Mar 11, 2018 07:57
--- NOTE | 2018-03-11 09:39 | PDOC ---
PROGRESS NOTES Subjective Subjective sleeping . blood pressure has been running high and will start low dose amlodipine. lab reviewed. potassium and magnesium okay. afebrile. Objective Objective Vital Signs Date Time Temp Pulse Resp B/P (MAP) Pulse Ox O2 Delivery O2 Flow Rate FiO2 03/11/18 08:00 Room Air 03/11/18 03:00 96.6 71 18 148/73 (98) 97 96.6 Intake and Output 03/11/18 07:00 Intake Total 2370 ml Balance 2370 ml Intake Oral 600 ml IV Total 1770 ml # Voids 5 Physical Exam Abdomen: Soft Heart: Regular rate, Normal S1, Normal S2 Extremities: No edema General: Other (sleeping) HEENT: Atraumatic Lungs: Clear to auscultation Neuro: Other (sleeping) Psych/Mental Status: Other (sleeping) Skin: No rashes Assessment Assessment ProblemsGNR bacteremia 1/3 positive. with sepsis POA 2. e. coli in urine 3. Chest pain.atypical and resolved 4. Enterocutaneous fistula. 5. Enterovesical fistula. 6. Hypokalemia. resolved 7. Hypomagnesemia. resolved 8. Anemia of chronic disease. 9. Severe protein-calorie malnutrition. hypertension Medical Problems: (1) Vesicoenteric fistula Status: Acute Plan Plan of Care start amlodipine continue iv zosyn continue TPN lab tomorrow Comment Review of Relevant I have reviewed the following items lucila (where applicable) has been applied. Labs Laboratory Tests Test 03/10/18 03:40 03/10/18 05:45 03/11/18 05:45 Glucose (Fingerstick) 106 mg/dL (70-99) Sodium Level 139 mmol/L (136-145) 140 mmol/L (136-145) Potassium Level 4.8 mmol/L (3.5-5.1) 4.8 mmol/L (3.5-5.1) Chloride Level 106 mmol/L (98-107) 108 mmol/L (98-107) Carbon Dioxide Level 26 mmol/L (21-32) 25 mmol/L (21-32) Anion Gap 7 (6-14) 7 (6-14) Blood Urea Nitrogen 13 mg/dL (7-20) 16 mg/dL (7-20) Creatinine 0.6 mg/dL (0.6-1.0) 0.6 mg/dL (0.6-1.0) Estimated GFR (Cockcroft-Gault) 122.6 122.6 BUN/Creatinine Ratio 22 (6-20) Glucose Level 87 mg/dL (70-99) 86 mg/dL (70-99) Calcium Level 8.7 mg/dL (8.5-10.1) 8.8 mg/dL (8.5-10.1) Phosphorus Level 3.5 mg/dL (2.6-4.7) Magnesium Level 2.0 mg/dL (1.8-2.4) 2.1 mg/dL (1.8-2.4) Total Bilirubin 0.3 mg/dL (0.2-1.0) Aspartate Amino Transf (AST/SGOT) 29 U/L (15-37) Alanine Aminotransferase (ALT/SGPT) 23 U/L (14-59) Alkaline Phosphatase 185 U/L (46-116) Total Protein 7.4 g/dL (6.4-8.2) Albumin 2.2 g/dL (3.4-5.0) Albumin/Globulin Ratio 0.4 (1.0-1.7) White Blood Count 3.7 x10^3/uL (4.0-11.0) Red Blood Count 3.36 x10^6/uL (3.50-5.40) Hemoglobin 9.0 g/dL (12.0-15.5) Hematocrit 27.8 % (36.0-47.0) Mean Corpuscular Volume 83 fL (79-100) Mean Corpuscular Hemoglobin 27 pg (25-35) Mean Corpuscular Hemoglobin Concent 32 g/dL (31-37) Red Cell Distribution Width 18.2 % (11.5-14.5) Platelet Count 242 x10^3/uL (140-400) Neutrophils (%) (Auto) 51 % (31-73) Lymphocytes (%) (Auto) 24 % (24-48) Monocytes (%) (Auto) 8 % (0-9) Eosinophils (%) (Auto) 16 % (0-3) Basophils (%) (Auto) 1 % (0-3) Neutrophils # (Auto) 1.9 x10^3uL (1.8-7.7) Lymphocytes # (Auto) 0.9 x10^3/uL (1.0-4.8) Monocytes # (Auto) 0.3 x10^3/uL (0.0-1.1) Eosinophils # (Auto) 0.6 x10^3/uL (0.0-0.7) Basophils # (Auto) 0.0 x10^3/uL (0.0-0.2) Laboratory Tests Test 03/11/18 05:45 White Blood Count 3.7 x10^3/uL (4.0-11.0) Red Blood Count 3.36 x10^6/uL (3.50-5.40) Hemoglobin 9.0 g/dL (12.0-15.5) Hematocrit 27.8 % (36.0-47.0) Mean Corpuscular Volume 83 fL (79-100) Mean Corpuscular Hemoglobin 27 pg (25-35) Mean Corpuscular Hemoglobin Concent 32 g/dL (31-37) Red Cell Distribution Width 18.2 % (11.5-14.5) Platelet Count 242 x10^3/uL (140-400) Neutrophils (%) (Auto) 51 % (31-73) Lymphocytes (%) (Auto) 24 % (24-48) Monocytes (%) (Auto) 8 % (0-9) Eosinophils (%) (Auto) 16 % (0-3) Basophils (%) (Auto) 1 % (0-3) Neutrophils # (Auto) 1.9 x10^3uL (1.8-7.7) Lymphocytes # (Auto) 0.9 x10^3/uL (1.0-4.8) Monocytes # (Auto) 0.3 x10^3/uL (0.0-1.1) Eosinophils # (Auto) 0.6 x10^3/uL (0.0-0.7) Basophils # (Auto) 0.0 x10^3/uL (0.0-0.2) Sodium Level 140 mmol/L (136-145) Potassium Level 4.8 mmol/L (3.5-5.1) Chloride Level 108 mmol/L (98-107) Carbon Dioxide Level 25 mmol/L (21-32) Anion Gap 7 (6-14) Blood Urea Nitrogen 16 mg/dL (7-20) Creatinine 0.6 mg/dL (0.6-1.0) Estimated GFR (Cockcroft-Gault) 122.6 Glucose Level 86 mg/dL (70-99) Calcium Level 8.8 mg/dL (8.5-10.1) Magnesium Level 2.1 mg/dL (1.8-2.4) Microbiology 03/06/18 Blood Culture - Final, Complete NO GROWTH AFTER 5 DAYS 03/05/18 Urine Culture - Final, Complete 03/05/18 Urine Culture Result 1 (ROYA) - Final, Complete 03/05/18 Antimicrobic Susceptibility - Final, Complete Medications Current Medications Sodium Chloride 1,000 ml @ 1,000 mls/hr 1X ONCE IV Last administered on at 23:47; Start 03/05/18 at 23:15; Stop 03/06/18 at 00:14; Status DC Fentanyl Citrate (Fentanyl 2ml Vial) 75 mcg 1X ONCE IV Last administered on at 23:46; Start 03/05/18 at 23:15; Stop 03/05/18 at 23:16; Status DC Ceftriaxone Sodium 1 gm/ Dextrose 50 ml @ 100 mls/hr Q24H IV ; Start 03/05/18 at 23:15; Status UNV Ceftriaxone Sodium 50 ml @ 100 mls/hr 1X ONCE IV ; Start 03/05/18 at 23:15; Stop 03/05/18 at 23:44; Status Cancel Ceftriaxone Sodium (Rocephin) 1 gm Q24H IVP ; Start 03/06/18 at 21:00; Status Cancel Ceftriaxone Sodium 50 ml @ 100 mls/hr 1X ONCE IV Last administered on at 23:47; Start 03/05/18 at 23:30; Stop 03/05/18 at 23:59; Status DC Info (Tpn Per Pharmacy) 1 each PRN DAILY PRN MC SEE COMMENTS Last administered on 03/10/18at 12:31; Start 03/06/18 at 00:15 Amino Acids/ Glycerin/ Electrolytes 1,000 ml @ 80 mls/hr [id number] IV Last administered on 03/06/18at 02:23; Start 03/06/18 at 01:30; Stop 03/06/18 at 21:59 ; Status DC Hydromorphone HCl (Dilaudid) 2 mg PRN Q6HRS PRN PO PAIN; Start 03/06/18 at 00: 15; Stop 03/06/18 at 10:54; Status DC Ondansetron HCl (Zofran) 4 mg PRN Q8HRS PRN IV NAUSEA/VOMITING Last administered on 03/06/18at 16:40; Start 03/06/18 at 00:15; Stop 03/07/18 at 00:14 ; Status DC Fentanyl Citrate (Fentanyl 2ml Vial) 50 mcg PRN Q2HR PRN IV PAIN Last administered on 03/06/18at 02:40; Start 03/06/18 at 00:15; Stop 03/07/18 at 00:14 ; Status DC Aspirin (Elma Aspirin) 325 mg 1X ONCE PO Last administered on 03/06/18at 00:33 ; Start 03/06/18 at 00:30; Stop 03/06/18 at 00:31; Status DC Potassium Chloride (Klor-Con) 40 meq 1X ONCE PO Last administered on at 01:14; Start 03/06/18 at 00:30; Stop 03/06/18 at 00:31; Status DC Potassium Chloride (KCl Oral Soln) 20 meq STK-MED ONCE .ROUTE ; Start 03/06/18 at 01:22; Stop 03/06/18 at 01:23; Status DC Influenza Virus Vaccine (Afluria Trivalent [id number] Syringe) 0.5 ml ONCE ONCE VAX IM Last administered on 03/06/18at 13:59; Start 03/06/18 at 09:00; Stop at 09:01; Status DC Info (Do NOT chart on this placeholder) 1 each PRN 1X PRN MC SEE COMMENTS; Start 03/06/18 at 03:15; Status Cancel Linezolid/Dextrose 300 ml @ 300 mls/hr Q12HR IV Last administered on at 20:44; Start 03/06/18 at 12:00; Stop 03/09/18 at 09:19; Status DC Piperacillin Sod/ Tazobactam Sod 3.375 gm/Sodium Chloride 50 ml @ 100 mls/hr Q6HRS IV Last administered on 03/11/18at 05:38; Start 03/06/18 at 12:00 Acetaminophen (Tylenol) 650 mg PRN Q6HRS PRN PO MILD PAIN / TEMP; Start at 10:45 Sertraline HCl (Zoloft) 50 mg DAILY PO Last administered on 03/11/18 07:40; Start 03/06/18 at 12:00 Lorazepam (Ativan) 0.5 mg PRN Q6HRS PRN PO ANXIETY / AGITATION Last administered on 03/07/18 02:29; Start 03/06/18 at 10:45 Fentanyl (Duragesic 25mcg/ Hr Patch) 1 patch Q3DAYS TD Last administered on 07:59; Start 03/06/18 at 12:00 Ondansetron HCl (Zofran Odt) 4 mg PRN Q6HRS PRN PO NAUSEA/VOMITING Last administered on 03/09/18 14:11; Start 03/06/18 at 10:45 Hydromorphone HCl (Dilaudid) 2 mg PRN Q4HRS PRN IV MODERATE PAIN Last administered on 03/10/18at 04:42; Start 03/06/18 at 10:45 Hydromorphone HCl (Dilaudid) 4 mg PRN Q4HRS PRN IV SEVERE PAIN Last administered on 03/11/18 05:39; Start 03/06/18 at 10:45 Diphenhydramine HCl (Benadryl) 25 mg PRN Q6HRS PRN PO ITCHING; Start 03/06/18 at 10:45 Pantoprazole Sodium (Protonix) 40 mg DAILYAC PO Last administered on 03/11/18 07:40; Start 03/06/18 at 12:00 Zolpidem Tartrate (Ambien) 5 mg PRN QHS PRN PO INSOMNIA; Start 03/06/18 at 10: 45 Magnesium Sulfate 50 ml @ 25 mls/hr 1X ONCE IV Last administered on 03/06/18 14:02; Start 03/06/18 at 12:00; Stop 03/06/18 at 13:59; Status DC Potassium Chloride/Water 50 ml @ 50 mls/hr Q1H IV Last administered on 12:00; Start 03/06/18 at 11:00; Stop 03/06/18 at 12:59; Status DC Lidocaine (Xylocaine) 1 sang BID TP Last administered on 9/28/18at 07:39; Start 03/06/18 at 12:00 Zinc Oxide (Zinc Oxide 20% Topical) 1 sang BID TP Last administered on at 07:39; Start 03/06/18 at 12:00 Sodium Chloride 210 meq/Potassium Chloride 60 meq/ Potassium Phosphate 6.8 mmol/ Magnesium Sulfate 32 meq/ Multivitamins 10 ml/Chromium/ Copper/Manganese/ Seleni /Zn 1 ml/ Potassium Acetate 20 meq/Total Parenteral Nutrition/Amino Acids/ Dextrose/ Fat Emulsion Intravenous 1,920 ml @ 80 mls/hr TPN CONT IV Last administered on 03/06/18at 21:07; Start 03/06/18 at 22:00; Stop 03/07/18 at 21:59 ; Status DC Nystatin (Mycostatin) 1 sang BID TP Last administered on 03/11/18at 07:39; Start 03/06/18 at 21:00 Sodium Chloride 210 meq/Potassium Chloride 60 meq/ Potassium Phosphate 6.8 mmol/ Magnesium Sulfate 32 meq/ Multivitamins 10 ml/Chromium/ Copper/Manganese/ Seleni /Zn 1 ml/ Potassium Acetate 20 meq/Total Parenteral Nutrition/Amino Acids/ Dextrose/ Fat Emulsion Intravenous 1,920 ml @ 80 mls/hr TPN CONT IV Last administered on 03/07/18at 21:45; Start 03/07/18 at 22:00; Stop 03/08/18 at 21:59 ; Status DC Sodium Chloride 210 meq/Potassium Chloride 40 meq/ Potassium Phosphate 6.8 mmol/ Magnesium Sulfate 26 meq/ Multivitamins 10 ml/Chromium/ Copper/Manganese/ Seleni /Zn 1 ml/ Potassium Acetate 20 meq/Total Parenteral Nutrition/Amino Acids/ Dextrose/ Fat Emulsion Intravenous 1,920 ml @ 80 mls/hr TPN CONT IV Last administered on 03/08/18at 22:01; Start 03/08/18 at 22:00; Stop 03/09/18 at 21:59 ; Status DC Alteplase, Recombinant (Cathflo) 4 mg 1X ONCE INT CAT Last administered on at 07:58; Start 03/09/18 at 06:00; Stop 03/09/18 at 06:01; Status DC Dextrose/Sodium Chloride 1,000 ml @ 80 mls/hr [id number] IV Last administered on 03/09/18at 09:42; Start 03/09/18 at 09:30; Stop 03/09/18 at 21:59; Status DC Sodium Chloride 210 meq/Potassium Chloride 20 meq/ Potassium Acetate 20 meq/ Potassium Phosphate 6.8 mmol/Magnesium Sulfate 20 meq/ Multivitamins 10 ml/ Chromium/ Copper/Manganese/ Seleni/Zn 1 ml/ Total Parenteral Nutrition/Amino Acids/Dextrose/ Fat Emulsion Intravenous 1,920 ml @ 80 mls/hr TPN CONT IV Last administered on 03/09/18at 22:11; Start 03/09/18 at 22:00; Stop 03/10/18 at 21:59; Status DC Sodium Chloride 210 meq/Potassium Chloride 20 meq/ Potassium Acetate 20 meq/ Potassium Phosphate 6.8 mmol/Magnesium Sulfate 20 meq/ Multivitamins 10 ml/ Chromium/ Copper/Manganese/ Seleni/Zn 1 ml/ Total Parenteral Nutrition/Amino Acids/Dextrose/ Fat Emulsion Intravenous 1,920 ml @ 80 mls/hr TPN CONT IV Last administered on 03/10/18at 22:01; Start 03/10/18 at 22:00; Stop 03/11/18 at 21:59 Active Scripts Active FENTANYL 25mcg/hr (Fentanyl) 1 Each Patch.td72 1 Patch TD Q72H 30 Days Sertraline Hcl 50 Mg Tablet 50 Mg PO DAILY 30 Days Famotidine 20 Mg Tablet 20 Mg PO BID 60 Days Lidocaine 35.44 Gm Oint...g. 1 Sang TP BID Reported Zofran Odt (Ondansetron) 4 Mg Tab.rapdis 1 Tab SL PRN Q8HRS PRN Zinc Oxide 56.7 Gm Oint...g. 56.7 Gm TP PRN BID Dilaudid (Hydromorphone Hcl) 2 Mg Tablet 1 Tab PO PRN QID PRN Lorazepam 0.5 Mg Tablet 0.5 Mg PO Q6HRS PRN Vitals/I & O Vital Sign - Last 24 Hours 03/10/18 03/10/18 03/10/18 03/10/18 10:29 11:00 11:00 15:00 Temp 98.0 97.7 98.0 97.7 Pulse 67 62 Resp 18 18 18 18 B/P (MAP) 138/88 (105) 140/70 (93) Pulse Ox 100 100 O2 Delivery Room Air Room Air Room Air 03/10/18 03/10/18 03/10/18 03/10/18 17:23 19:00 20:00 21:33 Temp 97.7 97.7 Pulse 72 Resp 18 18 B/P (MAP) 148/68 (94) Pulse Ox 95 O2 Delivery Room Air Room Air Room Air Room Air 03/10/18 03/11/18 03/11/18 03/11/18 22:54 01:34 03:00 05:39 Temp 97.5 96.6 97.5 96.6 Pulse 92 71 Resp 18 18 B/P (MAP) 146/67 (93) 148/73 (98) Pulse Ox 96 97 O2 Delivery Room Air Room Air Room Air Room Air 03/11/18 03/11/18 06:13 08:00 O2 Delivery Room Air Room Air Intake and Output 03/10/18 03/10/18 03/11/18 15:00 23:00 07:00 Intake Total 50 ml 2150 ml 170 ml Balance 50 ml 2150 ml 170 ml Nutrition Consultation Dietary Evaluation: Recommendations by RD: PPN/TPN Comments: continue home TPN continue with cardiac diet Expected Outcomes/Goals: to meet > 75% est nutr needs- met via po intake and TPN Malnutrition Findings: Body Fat Depletion (Non Severe: Mild Depletion Weight Status: Appropriate BENITA LUTZ MD Mar 11, 2018 09:39
[2018-03-11 11:00] VITALS: BP 126/57
[2018-03-11] MEDS ORDERED: amLODIPine BESYLATE 2.5 MG TABLET PO SCH (11:00)
--- NOTE | 2018-03-11 12:12 | PDOC ---
Subjective: Subjective: Tolerating PO w/o vomiting. Says "my abdomen hurts all the time but sometimes hurts none of the time." Thinks when she gets sick, pain is worse. Objective: Vital Signs: Vital Signs Date Time Temp Pulse Resp B/P (MAP) Pulse Ox O2 Delivery O2 Flow Rate FiO2 03/11/18 11:00 97.7 74 18 126/57 (80) 95 Room Air 97.7 Labs: Laboratory Tests Test 03/11/18 05:45 White Blood Count 3.7 x10^3/uL Red Blood Count 3.36 x10^6/uL Hemoglobin 9.0 g/dL Hematocrit 27.8 % Mean Corpuscular Volume 83 fL Mean Corpuscular Hemoglobin 27 pg Mean Corpuscular Hemoglobin Concent 32 g/dL Red Cell Distribution Width 18.2 % Platelet Count 242 x10^3/uL Neutrophils (%) (Auto) 51 % Lymphocytes (%) (Auto) 24 % Monocytes (%) (Auto) 8 % Eosinophils (%) (Auto) 16 % Basophils (%) (Auto) 1 % Neutrophils # (Auto) 1.9 x10^3uL Lymphocytes # (Auto) 0.9 x10^3/uL Monocytes # (Auto) 0.3 x10^3/uL Eosinophils # (Auto) 0.6 x10^3/uL Basophils # (Auto) 0.0 x10^3/uL Sodium Level 140 mmol/L Potassium Level 4.8 mmol/L Chloride Level 108 mmol/L Carbon Dioxide Level 25 mmol/L Anion Gap 7 Blood Urea Nitrogen 16 mg/dL Creatinine 0.6 mg/dL Estimated GFR (Cockcroft-Gault) 122.6 Glucose Level 86 mg/dL Calcium Level 8.8 mg/dL Magnesium Level 2.1 mg/dL PE: GEN: NAD, walking around room, then uses commode LUNGS: room air ABD: holding towel in place NEURO/PSYCH: A & O 3 A/P: UTI/sepsis Chronic fistulae, chronic pain - on TPN -- Better? Continue same per GI. MIESHA RICO Mar 11, 2018 12:12
[2018-03-11] MEDS: TPN PER PHARMACY MC PRN (13:44)
[2018-03-11 15:00] VITALS: BP 118/42
[2018-03-11 19:00] VITALS: BP 172/93
[2018-03-11] MEDS ORDERED: DEXTROSE 70% IV SCH ×10 (22:00)
[2018-03-11] MEDS ORDERED: TOTAL PARENTERAL NUTRITION IV SCH ×10 (22:00)
[2018-03-11] MEDS ORDERED: [UNRECOGNIZED DRUG - OTHER] IV SCH ×10 (22:00)
[2018-03-11] MEDS ORDERED: AMINO ACIDS IV SCH ×10 (22:00)
[2018-03-11] MEDS ORDERED: cloNIDine HCL 0.1 MG TABLET PO PRN (22:45)
[2018-03-11 23:00] VITALS: BP 175/87
[2018-03-12 03:00] VITALS: BP 139/75
[2018-03-12] MEDS: HYDROmorphone 2 MG/ML VIAL IV PRN ×5 (05:22→22:09)
[2018-03-12] MEDS: PIPERACILLIN/TAZOBACTAM 3.375 GM in IV NORMAL SALINE 50ML 50 ML IV SCH ×4 (06:09→22:57)
[2018-03-12 06:45] LABS: CALCIUM 8.9 mg/dL (8.5-10.1); CREATININE 0.6 mg/dL (0.6-1.0); GFR 122.6; MAGNESIUM 2.2 mg/dL (1.8-2.4); POTASSIUM 4.7 mmol/L (3.5-5.1)
[2018-03-12 07:00] VITALS: BP 144/81
[2018-03-12 07:03] LABS: BASO # 0.1 x10^3/uL (0.0-0.2); BASO % 3 % (0-3); EOS # 0.6 x10^3/uL (0.0-0.7); EOS % 12 % (0-3); HEMATOCRIT 28.2 % (36.0-47.0); HEMOGLOBIN 9.1 g/dL (12.0-15.5); LYMPH # 1.2 x10^3/uL (1.0-4.8); LYMPH % 23 % (24-48); MEAN CORPUSCULAR HEMOGLOBIN 27 pg (25-35); MEAN CORPUSCULAR HGB CONC 33 g/dL (31-37); MEAN CORPUSCULAR VOLUME 83 fL (79-100); MONO # 0.4 x10^3/uL (0.0-1.1); MONO % 7 % (0-9); NEUT # 2.9 x10^3uL (1.8-7.7); NEUT % 55 % (31-73); PLATELET COUNT 313 x10^3/uL (140-400); RED CELL DISTRIBUTION WIDTH 18.5 % (11.5-14.5); WHITE BLOOD COUNT 5.3 x10^3/uL (4.0-11.0)
[2018-03-12] MEDS: SERTRALINE 50 MG TABLET. PO SCH (08:36)
[2018-03-12] MEDS: PANTOPRAZOLE 40 MG TABLET.DR. PO SCH (08:36)
[2018-03-12] MEDS: fentaNYL 25MCG/HR PATCH 1 PATCH PATCH.TD72 TD SCH (08:38)
[2018-03-12] MEDS: ZINC OXIDE 20% TOPICAL OINTMENT 28GM TUBE. TP SCH ×2 (08:39→22:07)
[2018-03-12] MEDS: LIDOCAINE 5% TOPICAL OINTMENT 35GM TUBE. TP SCH ×2 (08:39→22:07)
[2018-03-12] MEDS: NYSTATIN 100,000 UNIT/GM TOPICAL CREAM 15GM TUBE. TP SCH ×2 (08:39→22:07)
[2018-03-12] MEDS ORDERED: amLODIPine BESYLATE 5 MG TABLET PO SCH (09:00)
--- NOTE | 2018-03-12 10:11 | PDOC ---
PROGRESS NOTES Subjective Subjective has bilateral leg swelling worse on left. bp high at times. feels okay. lab reviewed. Objective Objective Vital Signs Date Time Temp Pulse Resp B/P (MAP) Pulse Ox O2 Delivery O2 Flow Rate FiO2 03/12/18 08:38 Room Air 03/12/18 08:36 76 144/81 03/12/18 07:00 97.5 16 100 97.5 Intake and Output 03/12/18 07:00 Intake Total 420 ml Output Total 700 ml Balance -280 ml Intake Oral 320 ml IV Total 100 ml Output Urine Total 700 ml # Voids 7 # Bowel Movements 1 Physical Exam Abdomen: Soft, Other (enterocutaneous fistula) Heart: Regular rate, Normal S1, Normal S2 Extremities: Other (2 plus edema LLE and trace edema RLE) General: Alert HEENT: Atraumatic Lungs: Clear to auscultation Neuro: Normal speech Psych/Mental Status: Mental status NL Skin: No rashes Assessment Assessment ProblemsGNR bacteremia 1/3 positive. with sepsis POA 2. e. coli in urine 3. Chest pain.atypical and resolved 4. Enterocutaneous fistula. 5. Enterovesical fistula. 6. Hypokalemia. resolved 7. Hypomagnesemia. resolved 8. Anemia of chronic disease. 9. Severe protein-calorie malnutrition. hypertension bilateral LLE edema Medical Problems: (1) Vesicoenteric fistula Status: Acute Plan Plan of Care d/c amlodipine due to LE edema bilateral LE venous doppler start losartan tomorrow furosemide now times 1 dose orally elevate legs GATITO hose continue TPN continue zosyn lab tomorrow Comment Review of Relevant I have reviewed the following items lucila (where applicable) has been applied. Labs Laboratory Tests Test 03/11/18 05:45 03/12/18 06:15 White Blood Count 3.7 x10^3/uL (4.0-11.0) 5.3 x10^3/uL (4.0-11.0) Red Blood Count 3.36 x10^6/uL (3.50-5.40) 3.40 x10^6/uL (3.50-5.40) Hemoglobin 9.0 g/dL (12.0-15.5) 9.1 g/dL (12.0-15.5) Hematocrit 27.8 % (36.0-47.0) 28.2 % (36.0-47.0) Mean Corpuscular Volume 83 fL (79-100) 83 fL (79-100) Mean Corpuscular Hemoglobin 27 pg (25-35) 27 pg (25-35) Mean Corpuscular Hemoglobin Concent 32 g/dL (31-37) 33 g/dL (31-37) Red Cell Distribution Width 18.2 % (11.5-14.5) 18.5 % (11.5-14.5) Platelet Count 242 x10^3/uL (140-400) 313 x10^3/uL (140-400) Neutrophils (%) (Auto) 51 % (31-73) 55 % (31-73) Lymphocytes (%) (Auto) 24 % (24-48) 23 % (24-48) Monocytes (%) (Auto) 8 % (0-9) 7 % (0-9) Eosinophils (%) (Auto) 16 % (0-3) 12 % (0-3) Basophils (%) (Auto) 1 % (0-3) 3 % (0-3) Neutrophils # (Auto) 1.9 x10^3uL (1.8-7.7) 2.9 x10^3uL (1.8-7.7) Lymphocytes # (Auto) 0.9 x10^3/uL (1.0-4.8) 1.2 x10^3/uL (1.0-4.8) Monocytes # (Auto) 0.3 x10^3/uL (0.0-1.1) 0.4 x10^3/uL (0.0-1.1) Eosinophils # (Auto) 0.6 x10^3/uL (0.0-0.7) 0.6 x10^3/uL (0.0-0.7) Basophils # (Auto) 0.0 x10^3/uL (0.0-0.2) 0.1 x10^3/uL (0.0-0.2) Sodium Level 140 mmol/L (136-145) 142 mmol/L (136-145) Potassium Level 4.8 mmol/L (3.5-5.1) 4.7 mmol/L (3.5-5.1) Chloride Level 108 mmol/L (98-107) 110 mmol/L (98-107) Carbon Dioxide Level 25 mmol/L (21-32) 24 mmol/L (21-32) Anion Gap 7 (6-14) 8 (6-14) Blood Urea Nitrogen 16 mg/dL (7-20) 22 mg/dL (7-20) Creatinine 0.6 mg/dL (0.6-1.0) 0.6 mg/dL (0.6-1.0) Estimated GFR (Cockcroft-Gault) 122.6 122.6 Glucose Level 86 mg/dL (70-99) 86 mg/dL (70-99) Calcium Level 8.8 mg/dL (8.5-10.1) 8.9 mg/dL (8.5-10.1) Magnesium Level 2.1 mg/dL (1.8-2.4) 2.2 mg/dL (1.8-2.4) Laboratory Tests Test 03/12/18 06:15 White Blood Count 5.3 x10^3/uL (4.0-11.0) Red Blood Count 3.40 x10^6/uL (3.50-5.40) Hemoglobin 9.1 g/dL (12.0-15.5) Hematocrit 28.2 % (36.0-47.0) Mean Corpuscular Volume 83 fL (79-100) Mean Corpuscular Hemoglobin 27 pg (25-35) Mean Corpuscular Hemoglobin Concent 33 g/dL (31-37) Red Cell Distribution Width 18.5 % (11.5-14.5) Platelet Count 313 x10^3/uL (140-400) Neutrophils (%) (Auto) 55 % (31-73) Lymphocytes (%) (Auto) 23 % (24-48) Monocytes (%) (Auto) 7 % (0-9) Eosinophils (%) (Auto) 12 % (0-3) Basophils (%) (Auto) 3 % (0-3) Neutrophils # (Auto) 2.9 x10^3uL (1.8-7.7) Lymphocytes # (Auto) 1.2 x10^3/uL (1.0-4.8) Monocytes # (Auto) 0.4 x10^3/uL (0.0-1.1) Eosinophils # (Auto) 0.6 x10^3/uL (0.0-0.7) Basophils # (Auto) 0.1 x10^3/uL (0.0-0.2) Sodium Level 142 mmol/L (136-145) Potassium Level 4.7 mmol/L (3.5-5.1) Chloride Level 110 mmol/L (98-107) Carbon Dioxide Level 24 mmol/L (21-32) Anion Gap 8 (6-14) Blood Urea Nitrogen 22 mg/dL (7-20) Creatinine 0.6 mg/dL (0.6-1.0) Estimated GFR (Cockcroft-Gault) 122.6 Glucose Level 86 mg/dL (70-99) Calcium Level 8.9 mg/dL (8.5-10.1) Magnesium Level 2.2 mg/dL (1.8-2.4) Microbiology 03/06/18 Blood Culture - Final, Complete NO GROWTH AFTER 5 DAYS 03/05/18 Urine Culture - Final, Complete 03/05/18 Urine Culture Result 1 (ROYA) - Final, Complete 03/05/18 Antimicrobic Susceptibility - Final, Complete Medications Current Medications Sodium Chloride 1,000 ml @ 1,000 mls/hr 1X ONCE IV Last administered on at 23:47; Start 03/05/18 at 23:15; Stop 03/06/18 at 00:14; Status DC Fentanyl Citrate (Fentanyl 2ml Vial) 75 mcg 1X ONCE IV Last administered on at 23:46; Start 03/05/18 at 23:15; Stop 03/05/18 at 23:16; Status DC Ceftriaxone Sodium 1 gm/ Dextrose 50 ml @ 100 mls/hr Q24H IV ; Start 03/05/18 at 23:15; Status UNV Ceftriaxone Sodium 50 ml @ 100 mls/hr 1X ONCE IV ; Start 03/05/18 at 23:15; Stop 03/05/18 at 23:44; Status Cancel Ceftriaxone Sodium (Rocephin) 1 gm Q24H IVP ; Start 03/06/18 at 21:00; Status Cancel Ceftriaxone Sodium 50 ml @ 100 mls/hr 1X ONCE IV Last administered on at 23:47; Start 03/05/18 at 23:30; Stop 03/05/18 at 23:59; Status DC Info (Tpn Per Pharmacy) 1 each PRN DAILY PRN MC SEE COMMENTS Last administered on 03/11/18at 13:44; Start 03/06/18 at 00:15 Amino Acids/ Glycerin/ Electrolytes 1,000 ml @ 80 mls/hr [id number] IV Last administered on 03/06/18at 02:23; Start 03/06/18 at 01:30; Stop 03/06/18 at 21:59 ; Status DC Hydromorphone HCl (Dilaudid) 2 mg PRN Q6HRS PRN PO PAIN; Start 03/06/18 at 00: 15; Stop 03/06/18 at 10:54; Status DC Ondansetron HCl (Zofran) 4 mg PRN Q8HRS PRN IV NAUSEA/VOMITING Last administered on 03/06/18at 16:40; Start 03/06/18 at 00:15; Stop 03/07/18 at 00:14 ; Status DC Fentanyl Citrate (Fentanyl 2ml Vial) 50 mcg PRN Q2HR PRN IV PAIN Last administered on 03/06/18at 02:40; Start 03/06/18 at 00:15; Stop 03/07/18 at 00:14 ; Status DC Aspirin (Elma Aspirin) 325 mg 1X ONCE PO Last administered on 03/06/18at 00:33 ; Start 03/06/18 at 00:30; Stop 03/06/18 at 00:31; Status DC Potassium Chloride (Klor-Con) 40 meq 1X ONCE PO Last administered on at 01:14; Start 03/06/18 at 00:30; Stop 03/06/18 at 00:31; Status DC Potassium Chloride (KCl Oral Soln) 20 meq STK-MED ONCE .ROUTE ; Start 03/06/18 at 01:22; Stop 03/06/18 at 01:23; Status DC Influenza Virus Vaccine (Afluria Trivalent [id number] Syringe) 0.5 ml ONCE ONCE VAX IM Last administered on 03/06/18at 13:59; Start 03/06/18 at 09:00; Stop at 09:01; Status DC Info (Do NOT chart on this placeholder) 1 each PRN 1X PRN MC SEE COMMENTS; Start 03/06/18 at 03:15; Status Cancel Linezolid/Dextrose 300 ml @ 300 mls/hr Q12HR IV Last administered on at 20:44; Start 03/06/18 at 12:00; Stop 03/09/18 at 09:19; Status DC Piperacillin Sod/ Tazobactam Sod 3.375 gm/Sodium Chloride 50 ml @ 100 mls/hr Q6HRS IV Last administered on 03/12/18 06:09; Start 03/06/18 at 12:00 Acetaminophen (Tylenol) 650 mg PRN Q6HRS PRN PO MILD PAIN / TEMP; Start at 10:45 Sertraline HCl (Zoloft) 50 mg DAILY PO Last administered on 03/12/18 08:36; Start 03/06/18 at 12:00 Lorazepam (Ativan) 0.5 mg PRN Q6HRS PRN PO ANXIETY / AGITATION Last administered on 03/07/18 02:29; Start 03/06/18 at 10:45 Fentanyl (Duragesic 25mcg/ Hr Patch) 1 patch Q3DAYS TD Last administered on 08:38; Start 03/06/18 at 12:00 Ondansetron HCl (Zofran Odt) 4 mg PRN Q6HRS PRN PO NAUSEA/VOMITING Last administered on 03/09/18at 14:11; Start 03/06/18 at 10:45 Hydromorphone HCl (Dilaudid) 2 mg PRN Q4HRS PRN IV MODERATE PAIN Last administered on 03/10/18at 04:42; Start 03/06/18 at 10:45 Hydromorphone HCl (Dilaudid) 4 mg PRN Q4HRS PRN IV SEVERE PAIN Last administered on 03/12/18at 05:22; Start 03/06/18 at 10:45 Diphenhydramine HCl (Benadryl) 25 mg PRN Q6HRS PRN PO ITCHING; Start 03/06/18 at 10:45 Pantoprazole Sodium (Protonix) 40 mg DAILYAC PO Last administered on 03/12/18 08:36; Start 03/06/18 at 12:00 Zolpidem Tartrate (Ambien) 5 mg PRN QHS PRN PO INSOMNIA; Start 03/06/18 at 10: 45 Magnesium Sulfate 50 ml @ 25 mls/hr 1X ONCE IV Last administered on 03/06/18at 14:02; Start 03/06/18 at 12:00; Stop 03/06/18 at 13:59; Status DC Potassium Chloride/Water 50 ml @ 50 mls/hr Q1H IV Last administered on at 12:00; Start 03/06/18 at 11:00; Stop 03/06/18 at 12:59; Status DC Lidocaine (Xylocaine) 1 sang BID TP Last administered on 03/12/18at 08:39; Start 03/06/18 at 12:00 Zinc Oxide (Zinc Oxide 20% Topical) 1 sang BID TP Last administered on at 08:39; Start 03/06/18 at 12:00 Sodium Chloride 210 meq/Potassium Chloride 60 meq/ Potassium Phosphate 6.8 mmol/ Magnesium Sulfate 32 meq/ Multivitamins 10 ml/Chromium/ Copper/Manganese/ Seleni /Zn 1 ml/ Potassium Acetate 20 meq/Total Parenteral Nutrition/Amino Acids/ Dextrose/ Fat Emulsion Intravenous 1,920 ml @ 80 mls/hr TPN CONT IV Last administered on 03/06/18at 21:07; Start 03/06/18 at 22:00; Stop 03/07/18 at 21:59 ; Status DC Nystatin (Mycostatin) 1 sang BID TP Last administered on 03/12/18at 08:39; Start 03/06/18 at 21:00 Sodium Chloride 210 meq/Potassium Chloride 60 meq/ Potassium Phosphate 6.8 mmol/ Magnesium Sulfate 32 meq/ Multivitamins 10 ml/Chromium/ Copper/Manganese/ Seleni /Zn 1 ml/ Potassium Acetate 20 meq/Total Parenteral Nutrition/Amino Acids/ Dextrose/ Fat Emulsion Intravenous 1,920 ml @ 80 mls/hr TPN CONT IV Last administered on 03/07/18at 21:45; Start 03/07/18 at 22:00; Stop 03/08/18 at 21:59 ; Status DC Sodium Chloride 210 meq/Potassium Chloride 40 meq/ Potassium Phosphate 6.8 mmol/ Magnesium Sulfate 26 meq/ Multivitamins 10 ml/Chromium/ Copper/Manganese/ Seleni /Zn 1 ml/ Potassium Acetate 20 meq/Total Parenteral Nutrition/Amino Acids/ Dextrose/ Fat Emulsion Intravenous 1,920 ml @ 80 mls/hr TPN CONT IV Last administered on 03/08/18at 22:01; Start 03/08/18 at 22:00; Stop 03/09/18 at 21:59 ; Status DC Alteplase, Recombinant (Cathflo) 4 mg 1X ONCE INT CAT Last administered on at 07:58; Start 03/09/18 at 06:00; Stop 03/09/18 at 06:01; Status DC Dextrose/Sodium Chloride 1,000 ml @ 80 mls/hr [id number] IV Last administered on 03/09/18at 09:42; Start 03/09/18 at 09:30; Stop 03/09/18 at 21:59; Status DC Sodium Chloride 210 meq/Potassium Chloride 20 meq/ Potassium Acetate 20 meq/ Potassium Phosphate 6.8 mmol/Magnesium Sulfate 20 meq/ Multivitamins 10 ml/ Chromium/ Copper/Manganese/ Seleni/Zn 1 ml/ Total Parenteral Nutrition/Amino Acids/Dextrose/ Fat Emulsion Intravenous 1,920 ml @ 80 mls/hr TPN CONT IV Last administered on 03/09/18at 22:11; Start 03/09/18 at 22:00; Stop 03/10/18 at 21:59; Status DC Sodium Chloride 210 meq/Potassium Chloride 20 meq/ Potassium Acetate 20 meq/ Potassium Phosphate 6.8 mmol/Magnesium Sulfate 20 meq/ Multivitamins 10 ml/ Chromium/ Copper/Manganese/ Seleni/Zn 1 ml/ Total Parenteral Nutrition/Amino Acids/Dextrose/ Fat Emulsion Intravenous 1,920 ml @ 80 mls/hr TPN CONT IV Last administered on 03/10/18at 22:01; Start 03/10/18 at 22:00; Stop 03/11/18 at 21:59; Status DC Amlodipine Besylate (Norvasc) 2.5 mg DAILY PO Last administered on 03/11/18at 10 :19; Start 03/11/18 at 11:00; Stop 03/11/18 at 22:31; Status DC Sodium Chloride 210 meq/Potassium Chloride 20 meq/ Potassium Acetate 20 meq/ Potassium Phosphate 6.8 mmol/Magnesium Sulfate 20 meq/ Multivitamins 10 ml/ Chromium/ Copper/Manganese/ Seleni/Zn 1 ml/ Total Parenteral Nutrition/Amino Acids/Dextrose/ Fat Emulsion Intravenous 1,920 ml @ 80 mls/hr TPN CONT IV Last administered on 03/11/18at 21:48; Start 03/11/18 at 22:00; Stop 03/12/18 at 21:59 Amlodipine Besylate (Norvasc) 5 mg DAILY PO Last administered on 03/12/18at 08: 36; Start 03/12/18 at 09:00 Clonidine HCl (Catapres) 0.1 mg PRN Q6HRS PRN PO HYPERTENSION, SEE COMMENTS Last administered on 03/11/18at 23:01; Start 03/11/18 at 22:45 Active Scripts Active FENTANYL 25mcg/hr (Fentanyl) 1 Each Patch.td72 1 Patch TD Q72H 30 Days Sertraline Hcl 50 Mg Tablet 50 Mg PO DAILY 30 Days Famotidine 20 Mg Tablet 20 Mg PO BID 60 Days Lidocaine 35.44 Gm Oint...g. 1 Sang TP BID Reported Zofran Odt (Ondansetron) 4 Mg Tab.rapdis 1 Tab SL PRN Q8HRS PRN Zinc Oxide 56.7 Gm Oint...g. 56.7 Gm TP PRN BID Dilaudid (Hydromorphone Hcl) 2 Mg Tablet 1 Tab PO PRN QID PRN Lorazepam 0.5 Mg Tablet 0.5 Mg PO Q6HRS PRN Vitals/I & O Vital Sign - Last 24 Hours 03/11/18 03/11/18 03/11/18 03/11/18 10:19 10:30 11:00 15:00 Temp 97.7 97.7 Pulse 75 74 77 Resp 18 18 B/P (MAP) 162/89 126/57 (80) 118/42 (67) Pulse Ox 95 97 O2 Delivery Room Air Room Air 03/11/18 03/11/18 03/11/18 03/11/18 15:02 15:32 19:00 19:12 Temp 97.7 97.7 Pulse 79 Resp 18 18 18 18 B/P (MAP) 172/93 (119) Pulse Ox 99 O2 Delivery Room Air Room Air Room Air Room Air 03/11/18 03/11/18 03/11/18 03/11/18 19:40 23:00 23:01 23:15 Temp 97.7 97.7 Pulse 78 75 Resp 18 B/P (MAP) 175/87 (116) 175/75 Pulse Ox 99 O2 Delivery Room Air Room Air Room Air 03/12/18 03/12/18 03/12/18 03/12/18 03:00 05:22 07:00 08:36 Temp 96.4 97.5 96.4 97.5 Pulse 84 76 76 Resp 18 16 B/P (MAP) 139/75 (96) 144/81 (102) 144/81 Pulse Ox 100 100 100 O2 Delivery Room Air Room Air Room Air 03/12/18 08:38 O2 Delivery Room Air Intake and Output 03/11/18 03/11/18 03/12/18 15:00 23:00 07:00 Intake Total 50 ml 370 ml Output Total 700 ml Balance -650 ml 370 ml Nutrition Consultation Dietary Evaluation: Recommendations by RD: PPN/TPN Comments: continue home TPN continue with cardiac diet Expected Outcomes/Goals: to meet > 75% est nutr needs- met via po intake and TPN Malnutrition Findings: Body Fat Depletion (Non Severe: Mild Depletion Weight Status: Appropriate BENITA LUTZ MD Mar 12, 2018 10:11
[2018-03-12] MEDS ORDERED: FUROSEMIDE 40 MG TABLET. PO ONE (10:30)
[2018-03-12] MEDS: TPN PER PHARMACY MC PRN (10:34)
[2018-03-12] MEDS: LOSARTAN POTASSIUM 50 MG TABLET. PO SCH (10:44)
[2018-03-12 11:20] VITALS: BP 142/97
--- NOTE | 2018-03-12 12:14 | RAD ---
Examination: Bilateral Lower Extremity Venous Doppler Ultrasound History: Bilateral leg swelling Comparison: None Procedure: Soni scale, color flow 2D and spectal waveform analysis images are obtained with and without compression in the area of the common femoral vein, superficial femoral vein - femoral vein junction, main femoral vein (superficial femoral vein) and popliteal vein. Veins of the proximal calf are also imaged. Findings: There is normal duplex flow, color flow and compressibility of all visualized vein segments. No evidence of deep venous thrombus is present. Mild soft tissue edema identified in the left lower leg. Impression: No evidence of DVT in the visualized bilateral lower extremity venous system. Electronically signed by: Mat Mason MD (03/12/2018 12:10 PM) [facility]
--- NOTE | 2018-03-12 13:38 | PDOC ---
Infectious Disease Note Subjective Subjective Comfortable + left leg edema No F/C/S ROS ROS per HPI otherwise neg Vital Sign Vital Signs Vital Signs Date Time Temp Pulse Resp B/P (MAP) Pulse Ox O2 Delivery O2 Flow Rate FiO2 03/12/18 11:20 97.9 87 16 142/97 (112) 100 Room Air 97.9 Physical Exam PHYSICAL EXAM GENERAL: Sitting on the side of the bed, smiling LUNGS: Clear to auscultation. HEART: S1, S2. ABDOMEN: Soft, nondistended. EC fistula with some mild skin excoriation, but no gross signs of active infection. EXTREMITIES: Ion hose on. LLE edema > R SKIN: Warm to touch without signs of rash. NEUROLOGIC: She is nonfocal and appropriate. power PICC in her right chest without signs of any complications. Labs Lab Laboratory Tests Test 03/12/18 06:15 White Blood Count 5.3 x10^3/uL (4.0-11.0) Red Blood Count 3.40 x10^6/uL (3.50-5.40) Hemoglobin 9.1 g/dL (12.0-15.5) Hematocrit 28.2 % (36.0-47.0) Mean Corpuscular Volume 83 fL (79-100) Mean Corpuscular Hemoglobin 27 pg (25-35) Mean Corpuscular Hemoglobin Concent 33 g/dL (31-37) Red Cell Distribution Width 18.5 % (11.5-14.5) Platelet Count 313 x10^3/uL (140-400) Neutrophils (%) (Auto) 55 % (31-73) Lymphocytes (%) (Auto) 23 % (24-48) Monocytes (%) (Auto) 7 % (0-9) Eosinophils (%) (Auto) 12 % (0-3) Basophils (%) (Auto) 3 % (0-3) Neutrophils # (Auto) 2.9 x10^3uL (1.8-7.7) Lymphocytes # (Auto) 1.2 x10^3/uL (1.0-4.8) Monocytes # (Auto) 0.4 x10^3/uL (0.0-1.1) Eosinophils # (Auto) 0.6 x10^3/uL (0.0-0.7) Basophils # (Auto) 0.1 x10^3/uL (0.0-0.2) Sodium Level 142 mmol/L (136-145) Potassium Level 4.7 mmol/L (3.5-5.1) Chloride Level 110 mmol/L (98-107) Carbon Dioxide Level 24 mmol/L (21-32) Anion Gap 8 (6-14) Blood Urea Nitrogen 22 mg/dL (7-20) Creatinine 0.6 mg/dL (0.6-1.0) Estimated GFR (Cockcroft-Gault) 122.6 Glucose Level 86 mg/dL (70-99) Calcium Level 8.9 mg/dL (8.5-10.1) Magnesium Level 2.2 mg/dL (1.8-2.4) Impression: No evidence of DVT in the visualized bilateral lower extremity venous system. Micro Microbiology 03/06/18 Blood Culture - Final, Complete NO GROWTH AFTER 5 DAYS 03/05/18 Urine Culture - Final, Complete 03/05/18 Urine Culture Result 1 (ROYA) - Final, Complete 03/05/18 Antimicrobic Susceptibility - Final, Complete Objective Assessment GNR sepsis - POA 03/05 06/16 bottles - no growth so far. ? contamination vs true but clinically much better Fever - better leukopenia - fluctuates UTI - POA - E.coli EC fistula Leg edema. No DVT Plan Plan of Care Cont Zosyn F/u labs and cults - blood Supportive care Patient seen and examined. Chart reviewed in detail. Case discussed with [employer]. I agree with the above Plan MARICARMEN COLEMAN APRN Mar 12, 2018 13:38 RUSTY HERNANDEZ MD Mar 12, 2018 18:20
[2018-03-12 15:29] VITALS: BP 131/77
[2018-03-12 19:00] VITALS: BP 120/80
[2018-03-12] MEDS ORDERED: DEXTROSE 70% IV SCH ×10 (22:00)
[2018-03-12] MEDS ORDERED: AMINO ACIDS IV SCH ×10 (22:00)
[2018-03-12] MEDS ORDERED: TOTAL PARENTERAL NUTRITION IV SCH ×10 (22:00)
[2018-03-12] MEDS ORDERED: [UNRECOGNIZED DRUG - OTHER] IV SCH ×10 (22:00)
[2018-03-12] MEDS: ONDANSETRON ODT 4 MG TAB.RAPDIS. PO PRN (22:12)
[2018-03-12 23:00] VITALS: BP 145/77
[2018-03-13] MEDS: HYDROmorphone 2 MG/ML VIAL IV PRN ×6 (02:30→23:35)
[2018-03-13 03:00] VITALS: BP 131/70
[2018-03-13] MEDS: PANTOPRAZOLE 40 MG TABLET.DR. PO SCH (05:56)
[2018-03-13] MEDS: PIPERACILLIN/TAZOBACTAM 3.375 GM in IV NORMAL SALINE 50ML 50 ML IV SCH ×4 (05:57→23:28)
[2018-03-13 07:00] VITALS: BP 108/50
[2018-03-13 07:16] LABS: CALCIUM 8.9 mg/dL (8.5-10.1); CREATININE 0.5 mg/dL (0.6-1.0); GFR 151.3; MAGNESIUM 1.8 mg/dL (1.8-2.4); PHOSPHORUS 3.3 mg/dL (2.6-4.7); POTASSIUM 4.2 mmol/L (3.5-5.1)
[2018-03-13] MEDS: LOSARTAN POTASSIUM 50 MG TABLET. PO SCH (09:00)
[2018-03-13] MEDS: SERTRALINE 50 MG TABLET. PO SCH (09:36)
[2018-03-13] MEDS: ZINC OXIDE 20% TOPICAL OINTMENT 28GM TUBE. TP SCH ×2 (09:38→22:24)
[2018-03-13] MEDS: NYSTATIN 100,000 UNIT/GM TOPICAL CREAM 15GM TUBE. TP SCH ×2 (09:39→22:24)
[2018-03-13] MEDS: LIDOCAINE 5% TOPICAL OINTMENT 35GM TUBE. TP SCH ×2 (09:39→22:24)
[2018-03-13] MEDS: TPN PER PHARMACY MC PRN ×2 (10:14→10:50)
--- NOTE | 2018-03-13 10:49 | PDOC ---
PROGRESS NOTES Subjective Subjective feels better. still with LE edema venous doppler bilateral LE neg for DVT. potassium and magnesium okay but trending lower, Objective Objective Vital Signs Date Time Temp Pulse Resp B/P (MAP) Pulse Ox O2 Delivery O2 Flow Rate FiO2 03/13/18 07:19 16 Room Air 03/13/18 07:00 97.7 70 108/50 (69) 99 97.7 Intake and Output 03/13/18 07:00 Intake Total 2090 ml Balance 2090 ml Intake Oral 120 ml IV Total 1970 ml # Voids 7 Physical Exam Abdomen: Soft, Other (enterocutaneous fistula) Heart: Regular rate, Normal S1, Normal S2 Extremities: Other (2 plus edmea LLE and trace edmea RLE) General: Alert HEENT: Atraumatic Lungs: Clear to auscultation Neuro: Normal speech Psych/Mental Status: Mental status NL Skin: No rashes Assessment Assessment ProblemsGNR bacteremia 1/3 positive. with sepsis POA 2. e. coli in urine 3. Chest pain.atypical and resolved 4. Enterocutaneous fistula. 5. Enterovesical fistula. 6. Hypokalemia. resolved 7. Hypomagnesemia. resolved 8. Anemia of chronic disease. 9. Severe protein-calorie malnutrition. hypertension bilateral LLE edema. bilateral LE venous doppler neg for DVT Medical Problems: (1) Vesicoenteric fistula Status: Acute Plan Plan of Care continue iv zosyn will increase kcl and magnesium in TPN. d/w pharmacist lab tomorrow oral lasix times 1 today continue losartan Comment Review of Relevant I have reviewed the following items lucila (where applicable) has been applied. Labs Laboratory Tests Test 03/12/18 06:15 03/13/18 06:00 White Blood Count 5.3 x10^3/uL (4.0-11.0) Red Blood Count 3.40 x10^6/uL (3.50-5.40) Hemoglobin 9.1 g/dL (12.0-15.5) Hematocrit 28.2 % (36.0-47.0) Mean Corpuscular Volume 83 fL (79-100) Mean Corpuscular Hemoglobin 27 pg (25-35) Mean Corpuscular Hemoglobin Concent 33 g/dL (31-37) Red Cell Distribution Width 18.5 % (11.5-14.5) Platelet Count 313 x10^3/uL (140-400) Neutrophils (%) (Auto) 55 % (31-73) Lymphocytes (%) (Auto) 23 % (24-48) Monocytes (%) (Auto) 7 % (0-9) Eosinophils (%) (Auto) 12 % (0-3) Basophils (%) (Auto) 3 % (0-3) Neutrophils # (Auto) 2.9 x10^3uL (1.8-7.7) Lymphocytes # (Auto) 1.2 x10^3/uL (1.0-4.8) Monocytes # (Auto) 0.4 x10^3/uL (0.0-1.1) Eosinophils # (Auto) 0.6 x10^3/uL (0.0-0.7) Basophils # (Auto) 0.1 x10^3/uL (0.0-0.2) Sodium Level 142 mmol/L (136-145) 141 mmol/L (136-145) Potassium Level 4.7 mmol/L (3.5-5.1) 4.2 mmol/L (3.5-5.1) Chloride Level 110 mmol/L (98-107) 108 mmol/L (98-107) Carbon Dioxide Level 24 mmol/L (21-32) 26 mmol/L (21-32) Anion Gap 8 (6-14) 7 (6-14) Blood Urea Nitrogen 22 mg/dL (7-20) 16 mg/dL (7-20) Creatinine 0.6 mg/dL (0.6-1.0) 0.5 mg/dL (0.6-1.0) Estimated GFR (Cockcroft-Gault) 122.6 151.3 Glucose Level 86 mg/dL (70-99) 84 mg/dL (70-99) Calcium Level 8.9 mg/dL (8.5-10.1) 8.9 mg/dL (8.5-10.1) Magnesium Level 2.2 mg/dL (1.8-2.4) 1.8 mg/dL (1.8-2.4) Phosphorus Level 3.3 mg/dL (2.6-4.7) Laboratory Tests Test 03/13/18 06:00 Sodium Level 141 mmol/L (136-145) Potassium Level 4.2 mmol/L (3.5-5.1) Chloride Level 108 mmol/L (98-107) Carbon Dioxide Level 26 mmol/L (21-32) Anion Gap 7 (6-14) Blood Urea Nitrogen 16 mg/dL (7-20) Creatinine 0.5 mg/dL (0.6-1.0) Estimated GFR (Cockcroft-Gault) 151.3 Glucose Level 84 mg/dL (70-99) Calcium Level 8.9 mg/dL (8.5-10.1) Phosphorus Level 3.3 mg/dL (2.6-4.7) Magnesium Level 1.8 mg/dL (1.8-2.4) Microbiology 03/06/18 Blood Culture - Final, Complete NO GROWTH AFTER 5 DAYS 03/05/18 Urine Culture - Final, Complete 03/05/18 Urine Culture Result 1 (ROYA) - Final, Complete 03/05/18 Antimicrobic Susceptibility - Final, Complete Medications Current Medications Sodium Chloride 1,000 ml @ 1,000 mls/hr 1X ONCE IV Last administered on at 23:47; Start 03/05/18 at 23:15; Stop 03/06/18 at 00:14; Status DC Fentanyl Citrate (Fentanyl 2ml Vial) 75 mcg 1X ONCE IV Last administered on at 23:46; Start 03/05/18 at 23:15; Stop 03/05/18 at 23:16; Status DC Ceftriaxone Sodium 1 gm/ Dextrose 50 ml @ 100 mls/hr Q24H IV ; Start 03/05/18 at 23:15; Status UNV Ceftriaxone Sodium 50 ml @ 100 mls/hr 1X ONCE IV ; Start 03/05/18 at 23:15; Stop 03/05/18 at 23:44; Status Cancel Ceftriaxone Sodium (Rocephin) 1 gm Q24H IVP ; Start 03/06/18 at 21:00; Status Cancel Ceftriaxone Sodium 50 ml @ 100 mls/hr 1X ONCE IV Last administered on at 23:47; Start 03/05/18 at 23:30; Stop 03/05/18 at 23:59; Status DC Info (Tpn Per Pharmacy) 1 each PRN DAILY PRN MC SEE COMMENTS Last administered on 03/13/18at 10:14; Start 03/06/18 at 00:15 Amino Acids/ Glycerin/ Electrolytes 1,000 ml @ 80 mls/hr [id number] IV Last administered on 03/06/18at 02:23; Start 03/06/18 at 01:30; Stop 03/06/18 at 21:59 ; Status DC Hydromorphone HCl (Dilaudid) 2 mg PRN Q6HRS PRN PO PAIN; Start 03/06/18 at 00: 15; Stop 03/06/18 at 10:54; Status DC Ondansetron HCl (Zofran) 4 mg PRN Q8HRS PRN IV NAUSEA/VOMITING Last administered on 03/06/18at 16:40; Start 03/06/18 at 00:15; Stop 03/07/18 at 00:14 ; Status DC Fentanyl Citrate (Fentanyl 2ml Vial) 50 mcg PRN Q2HR PRN IV PAIN Last administered on 03/06/18at 02:40; Start 03/06/18 at 00:15; Stop 03/07/18 at 00:14 ; Status DC Aspirin (Elma Aspirin) 325 mg 1X ONCE PO Last administered on 03/06/18at 00:33 ; Start 03/06/18 at 00:30; Stop 03/06/18 at 00:31; Status DC Potassium Chloride (Klor-Con) 40 meq 1X ONCE PO Last administered on at 01:14; Start 03/06/18 at 00:30; Stop 03/06/18 at 00:31; Status DC Potassium Chloride (KCl Oral Soln) 20 meq STK-MED ONCE .ROUTE ; Start 03/06/18 at 01:22; Stop 03/06/18 at 01:23; Status DC Influenza Virus Vaccine (Afluria Trivalent [id number] Syringe) 0.5 ml ONCE ONCE VAX IM Last administered on 03/06/18at 13:59; Start 03/06/18 at 09:00; Stop at 09:01; Status DC Info (Do NOT chart on this placeholder) 1 each PRN 1X PRN MC SEE COMMENTS; Start 03/06/18 at 03:15; Status Cancel Linezolid/Dextrose 300 ml @ 300 mls/hr Q12HR IV Last administered on at 20:44; Start 03/06/18 at 12:00; Stop 03/09/18 at 09:19; Status DC Piperacillin Sod/ Tazobactam Sod 3.375 gm/Sodium Chloride 50 ml @ 100 mls/hr Q6HRS IV Last administered on 03/13/18 05:57; Start 03/06/18 at 12:00 Acetaminophen (Tylenol) 650 mg PRN Q6HRS PRN PO MILD PAIN / TEMP; Start at 10:45 Sertraline HCl (Zoloft) 50 mg DAILY PO Last administered on 03/13/18 09:36; Start 03/06/18 at 12:00 Lorazepam (Ativan) 0.5 mg PRN Q6HRS PRN PO ANXIETY / AGITATION Last administered on 03/07/18 02:29; Start 03/06/18 at 10:45 Fentanyl (Duragesic 25mcg/ Hr Patch) 1 patch Q3DAYS TD Last administered on 08:38; Start 03/06/18 at 12:00 Ondansetron HCl (Zofran Odt) 4 mg PRN Q6HRS PRN PO NAUSEA/VOMITING Last administered on 03/12/18 22:12; Start 03/06/18 at 10:45 Hydromorphone HCl (Dilaudid) 2 mg PRN Q4HRS PRN IV MODERATE PAIN Last administered on 03/10/18 04:42; Start 03/06/18 at 10:45 Hydromorphone HCl (Dilaudid) 4 mg PRN Q4HRS PRN IV SEVERE PAIN Last administered on 03/13/18 06:49; Start 03/06/18 at 10:45 Diphenhydramine HCl (Benadryl) 25 mg PRN Q6HRS PRN PO ITCHING; Start 03/06/18 at 10:45 Pantoprazole Sodium (Protonix) 40 mg DAILYAC PO Last administered on 03/13/18 05:56; Start 03/06/18 at 12:00 Zolpidem Tartrate (Ambien) 5 mg PRN QHS PRN PO INSOMNIA Last administered on 22:12; Start 03/06/18 at 10:45 Magnesium Sulfate 50 ml @ 25 mls/hr 1X ONCE IV Last administered on 9/23/18at 14:02; Start 03/06/18 at 12:00; Stop 03/06/18 at 13:59; Status DC Potassium Chloride/Water 50 ml @ 50 mls/hr Q1H IV Last administered on at 12:00; Start 03/06/18 at 11:00; Stop 03/06/18 at 12:59; Status DC Lidocaine (Xylocaine) 1 sang BID TP Last administered on 03/13/18at 09:39; Start 03/06/18 at 12:00 Zinc Oxide (Zinc Oxide 20% Topical) 1 sang BID TP Last administered on at 09:38; Start 03/06/18 at 12:00 Sodium Chloride 210 meq/Potassium Chloride 60 meq/ Potassium Phosphate 6.8 mmol/ Magnesium Sulfate 32 meq/ Multivitamins 10 ml/Chromium/ Copper/Manganese/ Seleni /Zn 1 ml/ Potassium Acetate 20 meq/Total Parenteral Nutrition/Amino Acids/ Dextrose/ Fat Emulsion Intravenous 1,920 ml @ 80 mls/hr TPN CONT IV Last administered on 03/06/18at 21:07; Start 03/06/18 at 22:00; Stop 03/07/18 at 21:59 ; Status DC Nystatin (Mycostatin) 1 sang BID TP Last administered on 03/13/18at 09:39; Start 03/06/18 at 21:00 Sodium Chloride 210 meq/Potassium Chloride 60 meq/ Potassium Phosphate 6.8 mmol/ Magnesium Sulfate 32 meq/ Multivitamins 10 ml/Chromium/ Copper/Manganese/ Seleni /Zn 1 ml/ Potassium Acetate 20 meq/Total Parenteral Nutrition/Amino Acids/ Dextrose/ Fat Emulsion Intravenous 1,920 ml @ 80 mls/hr TPN CONT IV Last administered on 03/07/18at 21:45; Start 03/07/18 at 22:00; Stop 03/08/18 at 21:59 ; Status DC Sodium Chloride 210 meq/Potassium Chloride 40 meq/ Potassium Phosphate 6.8 mmol/ Magnesium Sulfate 26 meq/ Multivitamins 10 ml/Chromium/ Copper/Manganese/ Seleni /Zn 1 ml/ Potassium Acetate 20 meq/Total Parenteral Nutrition/Amino Acids/ Dextrose/ Fat Emulsion Intravenous 1,920 ml @ 80 mls/hr TPN CONT IV Last administered on 03/08/18at 22:01; Start 03/08/18 at 22:00; Stop 03/09/18 at 21:59 ; Status DC Alteplase, Recombinant (Cathflo) 4 mg 1X ONCE INT CAT Last administered on at 07:58; Start 03/09/18 at 06:00; Stop 03/09/18 at 06:01; Status DC Dextrose/Sodium Chloride 1,000 ml @ 80 mls/hr [id number] IV Last administered on 03/09/18at 09:42; Start 03/09/18 at 09:30; Stop 03/09/18 at 21:59; Status DC Sodium Chloride 210 meq/Potassium Chloride 20 meq/ Potassium Acetate 20 meq/ Potassium Phosphate 6.8 mmol/Magnesium Sulfate 20 meq/ Multivitamins 10 ml/ Chromium/ Copper/Manganese/ Seleni/Zn 1 ml/ Total Parenteral Nutrition/Amino Acids/Dextrose/ Fat Emulsion Intravenous 1,920 ml @ 80 mls/hr TPN CONT IV Last administered on 03/09/18at 22:11; Start 03/09/18 at 22:00; Stop 03/10/18 at 21:59; Status DC Sodium Chloride 210 meq/Potassium Chloride 20 meq/ Potassium Acetate 20 meq/ Potassium Phosphate 6.8 mmol/Magnesium Sulfate 20 meq/ Multivitamins 10 ml/ Chromium/ Copper/Manganese/ Seleni/Zn 1 ml/ Total Parenteral Nutrition/Amino Acids/Dextrose/ Fat Emulsion Intravenous 1,920 ml @ 80 mls/hr TPN CONT IV Last administered on 03/10/18at 22:01; Start 03/10/18 at 22:00; Stop 03/11/18 at 21:59; Status DC Amlodipine Besylate (Norvasc) 2.5 mg DAILY PO Last administered on 03/11/18at 10 :19; Start 03/11/18 at 11:00; Stop 03/11/18 at 22:31; Status DC Sodium Chloride 210 meq/Potassium Chloride 20 meq/ Potassium Acetate 20 meq/ Potassium Phosphate 6.8 mmol/Magnesium Sulfate 20 meq/ Multivitamins 10 ml/ Chromium/ Copper/Manganese/ Seleni/Zn 1 ml/ Total Parenteral Nutrition/Amino Acids/Dextrose/ Fat Emulsion Intravenous 1,920 ml @ 80 mls/hr TPN CONT IV Last administered on 03/11/18at 21:48; Start 03/11/18 at 22:00; Stop 03/12/18 at 21:59; Status DC Amlodipine Besylate (Norvasc) 5 mg DAILY PO Last administered on 03/12/18at 08: 36; Start 03/12/18 at 09:00; Stop 03/12/18 at 10:08; Status DC Clonidine HCl (Catapres) 0.1 mg PRN Q6HRS PRN PO HYPERTENSION, SEE COMMENTS Last administered on 03/11/18at 23:01; Start 03/11/18 at 22:45 Furosemide (Lasix) 40 mg 1X ONCE PO Last administered on 03/12/18at 10:45; Start 03/12/18 at 10:30; Stop 03/12/18 at 10:31; Status DC Losartan Potassium (Cozaar) 50 mg DAILY PO Last administered on 03/12/18at 10:44 ; Start 03/12/18 at 10:30 Sodium Chloride 210 meq/Potassium Chloride 20 meq/ Potassium Acetate 20 meq/ Potassium Phosphate 6.8 mmol/Magnesium Sulfate 20 meq/ Multivitamins 10 ml/ Chromium/ Copper/Manganese/ Seleni/Zn 1 ml/ Total Parenteral Nutrition/Amino Acids/Dextrose/ Fat Emulsion Intravenous 1,920 ml @ 80 mls/hr TPN CONT IV Last administered on 03/12/18at 22:08; Start 03/12/18 at 22:00; Stop 03/13/18 at 21:59 Sodium Chloride 210 meq/Potassium Chloride 20 meq/ Potassium Acetate 20 meq/ Potassium Phosphate 6.8 mmol/Magnesium Sulfate 25 meq/ Multivitamins 10 ml/ Chromium/ Copper/Manganese/ Seleni/Zn 1 ml/ Total Parenteral Nutrition/Amino Acids/Dextrose/ Fat Emulsion Intravenous 1,920 ml @ 80 mls/hr TPN CONT IV ; Start 03/13/18 at 22:00; Stop 03/14/18 at 21:59 Active Scripts Active FENTANYL 25mcg/hr (Fentanyl) 1 Each Patch.td72 1 Patch TD Q72H 30 Days Sertraline Hcl 50 Mg Tablet 50 Mg PO DAILY 30 Days Famotidine 20 Mg Tablet 20 Mg PO BID 60 Days Lidocaine 35.44 Gm Oint...g. 1 Sang TP BID Reported Zofran Odt (Ondansetron) 4 Mg Tab.rapdis 1 Tab SL PRN Q8HRS PRN Zinc Oxide 56.7 Gm Oint...g. 56.7 Gm TP PRN BID Dilaudid (Hydromorphone Hcl) 2 Mg Tablet 1 Tab PO PRN QID PRN Lorazepam 0.5 Mg Tablet 0.5 Mg PO Q6HRS PRN Vitals/I & O Vital Sign - Last 24 Hours 03/12/18 03/12/18 03/12/18 03/12/18 10:59 11:20 12:38 15:29 Temp 97.9 97.9 97.9 97.9 Pulse 87 93 Resp 16 16 B/P (MAP) 142/97 (112) 131/77 (95) Pulse Ox 100 100 O2 Delivery Room Air Room Air Room Air Room Air 03/12/18 03/12/18 03/12/18 03/12/18 17:08 19:00 20:00 22:09 Temp 97.9 97.9 Pulse 77 Resp 16 18 B/P (MAP) 120/80 (93) Pulse Ox 98 98 O2 Delivery Room Air Room Air Room Air Room Air 03/12/18 03/13/18 03/13/18 03/13/18 23:00 02:30 03:00 03:11 Temp 97.9 97.9 97.9 97.9 Pulse 72 75 Resp 16 18 16 B/P (MAP) 145/77 (99) 131/70 (90) Pulse Ox 99 99 97 99 O2 Delivery Room Air Room Air Room Air 03/13/18 03/13/18 03/13/18 06:49 07:00 07:19 Temp 97.7 97.7 Pulse 70 Resp 18 16 B/P (MAP) 108/50 (69) Pulse Ox 99 99 O2 Delivery Room Air Room Air Room Air Intake and Output 03/12/18 03/12/18 03/13/18 15:00 23:00 07:00 Intake Total 1920 ml 170 ml Balance 1920 ml 170 ml Nutrition Consultation Dietary Evaluation: Recommendations by RD: PPN/TPN Comments: continue home TPN continue with cardiac diet Expected Outcomes/Goals: to meet > 75% est nutr needs- met via po intake and TPN Malnutrition Findings: Body Fat Depletion (Non Severe: Mild Depletion Weight Status: Appropriate BENITA LUTZ MD Mar 13, 2018 10:49
[2018-03-13] MEDS ORDERED: FUROSEMIDE 40 MG TABLET. PO ONE (11:00)
[2018-03-13 15:59] VITALS: BP 156/66
--- NOTE | 2018-03-13 17:45 | PDOC ---
Infectious Disease Note Subjective Subjective Comfortable, denies pain No F/C/S/N/V/D/SOA ROS ROS per HPI otherwise neg Vital Sign Vital Signs Vital Signs Date Time Temp Pulse Resp B/P (MAP) Pulse Ox O2 Delivery O2 Flow Rate FiO2 03/13/18 15:59 98.0 69 16 156/66 (96) 100 Room Air 98.0 Physical Exam PHYSICAL EXAM GENERAL: Standing at the bedside, smiling LUNGS: Clear to auscultation. HEART: S1, S2. ABDOMEN: Soft, nondistended. EC fistula with some mild skin excoriation, but no gross signs of active infection. EXTREMITIES: Ion hose on. LLE edema > R SKIN: Warm to touch without signs of rash. NEUROLOGIC: Alert and appropriate Power PICC in her right chest without signs of any complications. Labs Lab Laboratory Tests Test 03/13/18 06:00 Sodium Level 141 mmol/L (136-145) Potassium Level 4.2 mmol/L (3.5-5.1) Chloride Level 108 mmol/L (98-107) Carbon Dioxide Level 26 mmol/L (21-32) Anion Gap 7 (6-14) Blood Urea Nitrogen 16 mg/dL (7-20) Creatinine 0.5 mg/dL (0.6-1.0) Estimated GFR (Cockcroft-Gault) 151.3 Glucose Level 84 mg/dL (70-99) Calcium Level 8.9 mg/dL (8.5-10.1) Phosphorus Level 3.3 mg/dL (2.6-4.7) Magnesium Level 1.8 mg/dL (1.8-2.4) Micro BLOOD CULTURE Final GRAM NEGATIVE RODS, IN 1 OF 3 BOTTLES, TWO SETS DRAWN. Objective Assessment GNR sepsis - POA 03/05 1/3 bottles - no growth so far. ? contamination vs true but clinically much better Fever - better leukopenia - fluctuates, better UTI - POA - E.coli EC fistula Leg edema. No DVT Plan Plan of Care Cont Zosyn F/u labs and cults - blood Supportive care Pt seen and examined. Chart reviewed in detail. Case discussed with LAB CLERK. Agree with above plan MARICARMEN COLEMAN APRN Mar 13, 2018 17:45 RUSTY HERNANDEZ MD Mar 13, 2018 18:40
[2018-03-13 19:00] VITALS: BP 157/93
[2018-03-13] MEDS ORDERED: AMINO ACIDS IV SCH ×10 (22:00)
[2018-03-13] MEDS ORDERED: TOTAL PARENTERAL NUTRITION IV SCH ×10 (22:00)
[2018-03-13] MEDS ORDERED: [UNRECOGNIZED DRUG - OTHER] IV SCH ×10 (22:00)
[2018-03-13] MEDS ORDERED: DEXTROSE 70% IV SCH ×10 (22:00)
[2018-03-13 23:00] VITALS: BP 140/84
[2018-03-14 03:00] VITALS: BP 135/64
[2018-03-14] MEDS: HYDROmorphone 2 MG/ML VIAL IV PRN ×5 (04:58→22:55)
[2018-03-14] MEDS: PIPERACILLIN/TAZOBACTAM 3.375 GM in IV NORMAL SALINE 50ML 50 ML IV SCH ×4 (05:26→22:54)
[2018-03-14 05:44] LABS: BASO # 0.2 x10^3/uL (0.0-0.2); BASO % 3 % (0-3); EOS # 0.6 x10^3/uL (0.0-0.7); EOS % 12 % (0-3); HEMATOCRIT 26.6 % (36.0-47.0); HEMOGLOBIN 8.6 g/dL (12.0-15.5); LYMPH # 1.3 x10^3/uL (1.0-4.8); LYMPH % 24 % (24-48); MEAN CORPUSCULAR HEMOGLOBIN 27 pg (25-35); MEAN CORPUSCULAR HGB CONC 32 g/dL (31-37); MEAN CORPUSCULAR VOLUME 83 fL (79-100); MONO # 0.5 x10^3/uL (0.0-1.1); MONO % 9 % (0-9); NEUT # 2.7 x10^3uL (1.8-7.7); NEUT % 52 % (31-73); PLATELET COUNT 260 x10^3/uL (140-400); RED BLOOD COUNT 3.22 x10^6/uL (3.50-5.40); RED CELL DISTRIBUTION WIDTH 18.4 % (11.5-14.5); WHITE BLOOD COUNT 5.2 x10^3/uL (4.0-11.0)
[2018-03-14 05:59] LABS: CALCIUM 8.5 mg/dL (8.5-10.1); CREATININE 0.6 mg/dL (0.6-1.0); GFR 122.6; PHOSPHORUS 3.7 mg/dL (2.6-4.7); POTASSIUM 4.3 mmol/L (3.5-5.1)
[2018-03-14 07:00] VITALS: BP 156/61
--- NOTE | 2018-03-14 09:00 | PDOC ---
Subjective: Subjective: Ate some food this morning, no vomiting, feeling better. Thinks might get to go home tomorrow. Objective: Vital Signs: Vital Signs Date Time Temp Pulse Resp B/P (MAP) Pulse Ox O2 Delivery O2 Flow Rate FiO2 03/14/18 07:00 96.4 68 16 156/61 (92) 97 Room Air 96.4 Labs: Laboratory Tests Test 03/14/18 05:30 White Blood Count 5.2 x10^3/uL Red Blood Count 3.22 x10^6/uL Hemoglobin 8.6 g/dL Hematocrit 26.6 % Mean Corpuscular Volume 83 fL Mean Corpuscular Hemoglobin 27 pg Mean Corpuscular Hemoglobin Concent 32 g/dL Red Cell Distribution Width 18.4 % Platelet Count 260 x10^3/uL Neutrophils (%) (Auto) 52 % Lymphocytes (%) (Auto) 24 % Monocytes (%) (Auto) 9 % Eosinophils (%) (Auto) 12 % Basophils (%) (Auto) 3 % Neutrophils # (Auto) 2.7 x10^3uL Lymphocytes # (Auto) 1.3 x10^3/uL Monocytes # (Auto) 0.5 x10^3/uL Eosinophils # (Auto) 0.6 x10^3/uL Basophils # (Auto) 0.2 x10^3/uL Sodium Level 139 mmol/L Potassium Level 4.3 mmol/L Chloride Level 106 mmol/L Carbon Dioxide Level 26 mmol/L Anion Gap 7 Blood Urea Nitrogen 19 mg/dL Creatinine 0.6 mg/dL Estimated GFR (Cockcroft-Gault) 122.6 Glucose Level 81 mg/dL Calcium Level 8.5 mg/dL Phosphorus Level 3.7 mg/dL Magnesium Level 2.0 mg/dL Triglycerides Level 55 mg/dL BLOOD CULTURE LC Preliminary Preliminary report BLD CULT RESULT 1 Preliminary No growth Imaging: LE US Impression: No evidence of DVT in the visualized bilateral lower extremity venous system. PE: GEN: NAD, walking around room LUNGS: room air HEART: RRR ABD: holding towels over abdomen as usual NEURO/PSYCH: A & O 3, cheerful A/P: Chronic fistulae, chronic pain - on TPN -- Improved w/ treatment of UTI/sepsis. MIESHA RICO Mar 14, 2018 09:00
[2018-03-14] MEDS: PANTOPRAZOLE 40 MG TABLET.DR. PO SCH (09:11)
[2018-03-14] MEDS: SERTRALINE 50 MG TABLET. PO SCH (09:12)
[2018-03-14] MEDS: LOSARTAN POTASSIUM 50 MG TABLET. PO SCH (09:12)
[2018-03-14] MEDS: ZINC OXIDE 20% TOPICAL OINTMENT 28GM TUBE. TP SCH ×2 (09:14→22:05)
[2018-03-14] MEDS: NYSTATIN 100,000 UNIT/GM TOPICAL CREAM 15GM TUBE. TP SCH ×2 (09:14→22:05)
[2018-03-14] MEDS: LIDOCAINE 5% TOPICAL OINTMENT 35GM TUBE. TP SCH ×2 (09:14→22:05)
--- NOTE | 2018-03-14 09:54 | PDOC ---
PROGRESS NOTES Subjective Subjective feels better. lab reviewed. still with LE edema Objective Objective Vital Signs Date Time Temp Pulse Resp B/P (MAP) Pulse Ox O2 Delivery O2 Flow Rate FiO2 03/14/18 09:13 20 97 Room Air 03/14/18 09:12 68 156/61 03/14/18 07:00 96.4 96.4 Intake and Output 03/14/18 07:00 Intake Total 1068 ml Balance 1068 ml Intake Oral 660 ml IV Total 408 ml # Voids 4 Physical Exam Abdomen: Soft Heart: Regular rate, Normal S1, Normal S2 Extremities: Other (2 plus bipedal edema) General: Alert HEENT: Mucous membr. moist/pink Lungs: Clear to auscultation, Normal air movement Neck: Supple, No JVD, No thyromegaly Psych/Mental Status: Mental status NL, Mood NL Skin: No rashes Assessment Assessment ProblemsGNR bacteremia 1/3 positive. with sepsis POA 2. e. coli in urine 3. Chest pain.atypical and resolved 4. Enterocutaneous fistula. 5. Enterovesical fistula. 6. Hypokalemia. resolved 7. Hypomagnesemia. resolved 8. Anemia of chronic disease. 9. Severe protein-calorie malnutrition. hypertension bilateral LLE edema. bilateral LE venous doppler neg for DVT Medical Problems: (1) Vesicoenteric fistula Status: Acute Plan Plan of Care continue antibiotics elevate legs continue losartan continue TPN lab tomorrow Comment Review of Relevant I have reviewed the following items lucila (where applicable) has been applied. Labs Laboratory Tests Test 03/13/18 06:00 03/14/18 05:30 Sodium Level 141 mmol/L (136-145) 139 mmol/L (136-145) Potassium Level 4.2 mmol/L (3.5-5.1) 4.3 mmol/L (3.5-5.1) Chloride Level 108 mmol/L (98-107) 106 mmol/L (98-107) Carbon Dioxide Level 26 mmol/L (21-32) 26 mmol/L (21-32) Anion Gap 7 (6-14) 7 (6-14) Blood Urea Nitrogen 16 mg/dL (7-20) 19 mg/dL (7-20) Creatinine 0.5 mg/dL (0.6-1.0) 0.6 mg/dL (0.6-1.0) Estimated GFR (Cockcroft-Gault) 151.3 122.6 Glucose Level 84 mg/dL (70-99) 81 mg/dL (70-99) Calcium Level 8.9 mg/dL (8.5-10.1) 8.5 mg/dL (8.5-10.1) Phosphorus Level 3.3 mg/dL (2.6-4.7) 3.7 mg/dL (2.6-4.7) Magnesium Level 1.8 mg/dL (1.8-2.4) 2.0 mg/dL (1.8-2.4) White Blood Count 5.2 x10^3/uL (4.0-11.0) Red Blood Count 3.22 x10^6/uL (3.50-5.40) Hemoglobin 8.6 g/dL (12.0-15.5) Hematocrit 26.6 % (36.0-47.0) Mean Corpuscular Volume 83 fL (79-100) Mean Corpuscular Hemoglobin 27 pg (25-35) Mean Corpuscular Hemoglobin Concent 32 g/dL (31-37) Red Cell Distribution Width 18.4 % (11.5-14.5) Platelet Count 260 x10^3/uL (140-400) Neutrophils (%) (Auto) 52 % (31-73) Lymphocytes (%) (Auto) 24 % (24-48) Monocytes (%) (Auto) 9 % (0-9) Eosinophils (%) (Auto) 12 % (0-3) Basophils (%) (Auto) 3 % (0-3) Neutrophils # (Auto) 2.7 x10^3uL (1.8-7.7) Lymphocytes # (Auto) 1.3 x10^3/uL (1.0-4.8) Monocytes # (Auto) 0.5 x10^3/uL (0.0-1.1) Eosinophils # (Auto) 0.6 x10^3/uL (0.0-0.7) Basophils # (Auto) 0.2 x10^3/uL (0.0-0.2) Triglycerides Level 55 mg/dL (0-150) Laboratory Tests Test 03/14/18 05:30 White Blood Count 5.2 x10^3/uL (4.0-11.0) Red Blood Count 3.22 x10^6/uL (3.50-5.40) Hemoglobin 8.6 g/dL (12.0-15.5) Hematocrit 26.6 % (36.0-47.0) Mean Corpuscular Volume 83 fL (79-100) Mean Corpuscular Hemoglobin 27 pg (25-35) Mean Corpuscular Hemoglobin Concent 32 g/dL (31-37) Red Cell Distribution Width 18.4 % (11.5-14.5) Platelet Count 260 x10^3/uL (140-400) Neutrophils (%) (Auto) 52 % (31-73) Lymphocytes (%) (Auto) 24 % (24-48) Monocytes (%) (Auto) 9 % (0-9) Eosinophils (%) (Auto) 12 % (0-3) Basophils (%) (Auto) 3 % (0-3) Neutrophils # (Auto) 2.7 x10^3uL (1.8-7.7) Lymphocytes # (Auto) 1.3 x10^3/uL (1.0-4.8) Monocytes # (Auto) 0.5 x10^3/uL (0.0-1.1) Eosinophils # (Auto) 0.6 x10^3/uL (0.0-0.7) Basophils # (Auto) 0.2 x10^3/uL (0.0-0.2) Sodium Level 139 mmol/L (136-145) Potassium Level 4.3 mmol/L (3.5-5.1) Chloride Level 106 mmol/L (98-107) Carbon Dioxide Level 26 mmol/L (21-32) Anion Gap 7 (6-14) Blood Urea Nitrogen 19 mg/dL (7-20) Creatinine 0.6 mg/dL (0.6-1.0) Estimated GFR (Cockcroft-Gault) 122.6 Glucose Level 81 mg/dL (70-99) Calcium Level 8.5 mg/dL (8.5-10.1) Phosphorus Level 3.7 mg/dL (2.6-4.7) Magnesium Level 2.0 mg/dL (1.8-2.4) Triglycerides Level 55 mg/dL (0-150) Microbiology 03/06/18 Blood Culture - Final, Complete NO GROWTH AFTER 5 DAYS 9/22/18 Urine Culture - Final, Complete 03/05/18 Urine Culture Result 1 (ROYA) - Final, Complete 03/05/18 Antimicrobic Susceptibility - Final, Complete Medications Current Medications Sodium Chloride 1,000 ml @ 1,000 mls/hr 1X ONCE IV Last administered on at 23:47; Start 03/05/18 at 23:15; Stop 03/06/18 at 00:14; Status DC Fentanyl Citrate (Fentanyl 2ml Vial) 75 mcg 1X ONCE IV Last administered on at 23:46; Start 03/05/18 at 23:15; Stop 03/05/18 at 23:16; Status DC Ceftriaxone Sodium 1 gm/ Dextrose 50 ml @ 100 mls/hr Q24H IV ; Start 03/05/18 at 23:15; Status UNV Ceftriaxone Sodium 50 ml @ 100 mls/hr 1X ONCE IV ; Start 03/05/18 at 23:15; Stop 03/05/18 at 23:44; Status Cancel Ceftriaxone Sodium (Rocephin) 1 gm Q24H IVP ; Start 03/06/18 at 21:00; Status Cancel Ceftriaxone Sodium 50 ml @ 100 mls/hr 1X ONCE IV Last administered on at 23:47; Start 03/05/18 at 23:30; Stop 03/05/18 at 23:59; Status DC Info (Tpn Per Pharmacy) 1 each PRN DAILY PRN MC SEE COMMENTS Last administered on 03/13/18at 10:50; Start 03/06/18 at 00:15 Amino Acids/ Glycerin/ Electrolytes 1,000 ml @ 80 mls/hr [id number] IV Last administered on 03/06/18at 02:23; Start 03/06/18 at 01:30; Stop 03/06/18 at 21:59 ; Status DC Hydromorphone HCl (Dilaudid) 2 mg PRN Q6HRS PRN PO PAIN; Start 03/06/18 at 00: 15; Stop 03/06/18 at 10:54; Status DC Ondansetron HCl (Zofran) 4 mg PRN Q8HRS PRN IV NAUSEA/VOMITING Last administered on 03/06/18at 16:40; Start 03/06/18 at 00:15; Stop 03/07/18 at 00:14 ; Status DC Fentanyl Citrate (Fentanyl 2ml Vial) 50 mcg PRN Q2HR PRN IV PAIN Last administered on 03/06/18at 02:40; Start 03/06/18 at 00:15; Stop 03/07/18 at 00:14 ; Status DC Aspirin (Elma Aspirin) 325 mg 1X ONCE PO Last administered on 03/06/18at 00:33 ; Start 03/06/18 at 00:30; Stop 03/06/18 at 00:31; Status DC Potassium Chloride (Klor-Con) 40 meq 1X ONCE PO Last administered on at 01:14; Start 03/06/18 at 00:30; Stop 03/06/18 at 00:31; Status DC Potassium Chloride (KCl Oral Soln) 20 meq STK-MED ONCE .ROUTE ; Start 03/06/18 at 01:22; Stop 03/06/18 at 01:23; Status DC Influenza Virus Vaccine (Afluria Trivalent [id number] Syringe) 0.5 ml ONCE ONCE VAX IM Last administered on 03/06/18at 13:59; Start 03/06/18 at 09:00; Stop at 09:01; Status DC Info (Do NOT chart on this placeholder) 1 each PRN 1X PRN MC SEE COMMENTS; Start 03/06/18 at 03:15; Status Cancel Linezolid/Dextrose 300 ml @ 300 mls/hr Q12HR IV Last administered on at 20:44; Start 03/06/18 at 12:00; Stop 03/09/18 at 09:19; Status DC Piperacillin Sod/ Tazobactam Sod 3.375 gm/Sodium Chloride 50 ml @ 100 mls/hr Q6HRS IV Last administered on 03/14/18at 05:26; Start 03/06/18 at 12:00 Acetaminophen (Tylenol) 650 mg PRN Q6HRS PRN PO MILD PAIN / TEMP; Start at 10:45 Sertraline HCl (Zoloft) 50 mg DAILY PO Last administered on 03/14/18at 09:12; Start 03/06/18 at 12:00 Lorazepam (Ativan) 0.5 mg PRN Q6HRS PRN PO ANXIETY / AGITATION Last administered on 03/07/18 02:29; Start 03/06/18 at 10:45 Fentanyl (Duragesic 25mcg/ Hr Patch) 1 patch Q3DAYS TD Last administered on 08:38; Start 03/06/18 at 12:00 Ondansetron HCl (Zofran Odt) 4 mg PRN Q6HRS PRN PO NAUSEA/VOMITING Last administered on 03/12/18 22:12; Start 03/06/18 at 10:45 Hydromorphone HCl (Dilaudid) 2 mg PRN Q4HRS PRN IV MODERATE PAIN Last administered on 03/13/18 23:35; Start 03/06/18 at 10:45 Hydromorphone HCl (Dilaudid) 4 mg PRN Q4HRS PRN IV SEVERE PAIN Last administered on 03/14/18 09:13; Start 03/06/18 at 10:45 Diphenhydramine HCl (Benadryl) 25 mg PRN Q6HRS PRN PO ITCHING; Start 03/06/18 at 10:45 Pantoprazole Sodium (Protonix) 40 mg DAILYAC PO Last administered on 03/14/18 09:11; Start 03/06/18 at 12:00 Zolpidem Tartrate (Ambien) 5 mg PRN QHS PRN PO INSOMNIA Last administered on 22:12; Start 03/06/18 at 10:45 Magnesium Sulfate 50 ml @ 25 mls/hr 1X ONCE IV Last administered on 03/06/18 14:02; Start 03/06/18 at 12:00; Stop 03/06/18 at 13:59; Status DC Potassium Chloride/Water 50 ml @ 50 mls/hr Q1H IV Last administered on 12:00; Start 03/06/18 at 11:00; Stop 03/06/18 at 12:59; Status DC Lidocaine (Xylocaine) 1 sang BID TP Last administered on 03/14/18 09:14; Start 03/06/18 at 12:00 Zinc Oxide (Zinc Oxide 20% Topical) 1 sang BID TP Last administered on 09:14; Start 03/06/18 at 12:00 Sodium Chloride 210 meq/Potassium Chloride 60 meq/ Potassium Phosphate 6.8 mmol/ Magnesium Sulfate 32 meq/ Multivitamins 10 ml/Chromium/ Copper/Manganese/ Seleni /Zn 1 ml/ Potassium Acetate 20 meq/Total Parenteral Nutrition/Amino Acids/ Dextrose/ Fat Emulsion Intravenous 1,920 ml @ 80 mls/hr TPN CONT IV Last administered on 03/06/18at 21:07; Start 03/06/18 at 22:00; Stop 03/07/18 at 21:59 ; Status DC Nystatin (Mycostatin) 1 sang BID TP Last administered on 03/14/18at 09:14; Start 03/06/18 at 21:00 Sodium Chloride 210 meq/Potassium Chloride 60 meq/ Potassium Phosphate 6.8 mmol/ Magnesium Sulfate 32 meq/ Multivitamins 10 ml/Chromium/ Copper/Manganese/ Seleni /Zn 1 ml/ Potassium Acetate 20 meq/Total Parenteral Nutrition/Amino Acids/ Dextrose/ Fat Emulsion Intravenous 1,920 ml @ 80 mls/hr TPN CONT IV Last administered on 03/07/18at 21:45; Start 03/07/18 at 22:00; Stop 03/08/18 at 21:59 ; Status DC Sodium Chloride 210 meq/Potassium Chloride 40 meq/ Potassium Phosphate 6.8 mmol/ Magnesium Sulfate 26 meq/ Multivitamins 10 ml/Chromium/ Copper/Manganese/ Seleni /Zn 1 ml/ Potassium Acetate 20 meq/Total Parenteral Nutrition/Amino Acids/ Dextrose/ Fat Emulsion Intravenous 1,920 ml @ 80 mls/hr TPN CONT IV Last administered on 03/08/18at 22:01; Start 03/08/18 at 22:00; Stop 03/09/18 at 21:59 ; Status DC Alteplase, Recombinant (Cathflo) 4 mg 1X ONCE INT CAT Last administered on at 07:58; Start 03/09/18 at 06:00; Stop 03/09/18 at 06:01; Status DC Dextrose/Sodium Chloride 1,000 ml @ 80 mls/hr [id number] IV Last administered on 03/09/18at 09:42; Start 03/09/18 at 09:30; Stop 03/09/18 at 21:59; Status DC Sodium Chloride 210 meq/Potassium Chloride 20 meq/ Potassium Acetate 20 meq/ Potassium Phosphate 6.8 mmol/Magnesium Sulfate 20 meq/ Multivitamins 10 ml/ Chromium/ Copper/Manganese/ Seleni/Zn 1 ml/ Total Parenteral Nutrition/Amino Acids/Dextrose/ Fat Emulsion Intravenous 1,920 ml @ 80 mls/hr TPN CONT IV Last administered on 03/09/18at 22:11; Start 03/09/18 at 22:00; Stop 03/10/18 at 21:59; Status DC Sodium Chloride 210 meq/Potassium Chloride 20 meq/ Potassium Acetate 20 meq/ Potassium Phosphate 6.8 mmol/Magnesium Sulfate 20 meq/ Multivitamins 10 ml/ Chromium/ Copper/Manganese/ Seleni/Zn 1 ml/ Total Parenteral Nutrition/Amino Acids/Dextrose/ Fat Emulsion Intravenous 1,920 ml @ 80 mls/hr TPN CONT IV Last administered on 03/10/18at 22:01; Start 03/10/18 at 22:00; Stop 03/11/18 at 21:59; Status DC Amlodipine Besylate (Norvasc) 2.5 mg DAILY PO Last administered on 03/11/18at 10 :19; Start 03/11/18 at 11:00; Stop 03/11/18 at 22:31; Status DC Sodium Chloride 210 meq/Potassium Chloride 20 meq/ Potassium Acetate 20 meq/ Potassium Phosphate 6.8 mmol/Magnesium Sulfate 20 meq/ Multivitamins 10 ml/ Chromium/ Copper/Manganese/ Seleni/Zn 1 ml/ Total Parenteral Nutrition/Amino Acids/Dextrose/ Fat Emulsion Intravenous 1,920 ml @ 80 mls/hr TPN CONT IV Last administered on 03/11/18at 21:48; Start 03/11/18 at 22:00; Stop 03/12/18 at 21:59; Status DC Amlodipine Besylate (Norvasc) 5 mg DAILY PO Last administered on 03/12/18at 08: 36; Start 03/12/18 at 09:00; Stop 03/12/18 at 10:08; Status DC Clonidine HCl (Catapres) 0.1 mg PRN Q6HRS PRN PO HYPERTENSION, SEE COMMENTS Last administered on 03/11/18at 23:01; Start 03/11/18 at 22:45 Furosemide (Lasix) 40 mg 1X ONCE PO Last administered on 03/12/18at 10:45; Start 03/12/18 at 10:30; Stop 03/12/18 at 10:31; Status DC Losartan Potassium (Cozaar) 50 mg DAILY PO Last administered on 03/14/18at 09:12 ; Start 03/12/18 at 10:30 Sodium Chloride 210 meq/Potassium Chloride 20 meq/ Potassium Acetate 20 meq/ Potassium Phosphate 6.8 mmol/Magnesium Sulfate 20 meq/ Multivitamins 10 ml/ Chromium/ Copper/Manganese/ Seleni/Zn 1 ml/ Total Parenteral Nutrition/Amino Acids/Dextrose/ Fat Emulsion Intravenous 1,920 ml @ 80 mls/hr TPN CONT IV Last administered on 03/12/18at 22:08; Start 03/12/18 at 22:00; Stop 03/13/18 at 21:59; Status DC Sodium Chloride 210 meq/Potassium Chloride 40 meq/ Potassium Acetate 20 meq/ Potassium Phosphate 6.8 mmol/Magnesium Sulfate 30 meq/ Multivitamins 10 ml/ Chromium/ Copper/Manganese/ Seleni/Zn 1 ml/ Total Parenteral Nutrition/Amino Acids/Dextrose/ Fat Emulsion Intravenous 1,920 ml @ 80 mls/hr TPN CONT IV Last administered on 03/13/18at 22:10; Start 03/13/18 at 22:00; Stop 03/14/18 at 21:59 Furosemide (Lasix) 40 mg 1X ONCE PO Last administered on 03/13/18at 12:57; Start 03/13/18 at 11:00; Stop 03/13/18 at 11:01; Status DC Active Scripts Active FENTANYL 25mcg/hr (Fentanyl) 1 Each Patch.td72 1 Patch TD Q72H 30 Days Sertraline Hcl 50 Mg Tablet 50 Mg PO DAILY 30 Days Famotidine 20 Mg Tablet 20 Mg PO BID 60 Days Lidocaine 35.44 Gm Oint...g. 1 Sang TP BID Reported Zofran Odt (Ondansetron) 4 Mg Tab.rapdis 1 Tab SL PRN Q8HRS PRN Zinc Oxide 56.7 Gm Oint...g. 56.7 Gm TP PRN BID Dilaudid (Hydromorphone Hcl) 2 Mg Tablet 1 Tab PO PRN QID PRN Lorazepam 0.5 Mg Tablet 0.5 Mg PO Q6HRS PRN Vitals/I & O Vital Sign - Last 24 Hours 03/13/18 03/13/18 03/13/18 03/13/18 12:59 13:29 15:59 18:11 Temp 98.0 98.0 Pulse 69 Resp 16 16 16 B/P (MAP) 156/66 (96) Pulse Ox 100 100 O2 Delivery Room Air Room Air Room Air 03/13/18 03/13/18 03/13/18 03/13/18 18:40 19:00 22:18 23:00 Temp 96.8 96.9 96.8 96.9 Pulse 84 80 Resp 18 18 B/P (MAP) 157/93 (114) 140/84 (102) Pulse Ox 100 98 O2 Delivery Room Air Room Air Room Air Room Air 03/13/18 03/13/18 03/14/18 03/14/18 23:28 23:35 00:00 03:00 Temp 98.1 98.1 Pulse 76 Resp 20 20 20 18 B/P (MAP) 135/64 (87) Pulse Ox 100 O2 Delivery Room Air Room Air Room Air 03/14/18 03/14/18 03/14/18 03/14/18 04:58 05:26 07:00 09:12 Temp 96.4 96.4 Pulse 68 68 Resp 20 20 16 B/P (MAP) 156/61 (92) 156/61 Pulse Ox 97 O2 Delivery Room Air Room Air Room Air 03/14/18 09:13 Resp 20 Pulse Ox 97 O2 Delivery Room Air Intake and Output 03/13/18 03/13/18 03/14/18 15:00 23:00 07:00 Intake Total 360 ml 708 ml Balance 360 ml 708 ml Nutrition Consultation Dietary Evaluation: Recommendations by RD: PPN/TPN Comments: continue home TPN continue with cardiac diet Expected Outcomes/Goals: to meet > 75% est nutr needs- met via po intake and TPN Malnutrition Findings: Body Fat Depletion (Non Severe: Mild Depletion Weight Status: Appropriate BENITA LUTZ MD Mar 14, 2018 09:54
[2018-03-14 11:00] VITALS: BP 143/82
--- NOTE | 2018-03-14 11:52 | PDOC ---
Infectious Disease Note Subjective Subjective Comfortable, denies pain No F/C/S/N/V/D/SOA Vital Sign Vital Signs Vital Signs Date Time Temp Pulse Resp B/P (MAP) Pulse Ox O2 Delivery O2 Flow Rate FiO2 03/14/18 11:00 97.9 78 16 143/82 (102) 98 Room Air 97.9 Physical Exam PHYSICAL EXAM GENERAL: Standing at the bedside, smiling LUNGS: Clear to auscultation. HEART: S1, S2. ABDOMEN: Soft, nondistended. EC fistula with some mild skin excoriation, but no gross signs of active infection. EXTREMITIES: Ion hose on. LLE edema > R SKIN: Warm to touch without signs of rash. NEUROLOGIC: Alert and appropriate Power PICC in her right chest without signs of any complications. Labs Lab Laboratory Tests Test 03/14/18 05:30 White Blood Count 5.2 x10^3/uL (4.0-11.0) Red Blood Count 3.22 x10^6/uL (3.50-5.40) Hemoglobin 8.6 g/dL (12.0-15.5) Hematocrit 26.6 % (36.0-47.0) Mean Corpuscular Volume 83 fL (79-100) Mean Corpuscular Hemoglobin 27 pg (25-35) Mean Corpuscular Hemoglobin Concent 32 g/dL (31-37) Red Cell Distribution Width 18.4 % (11.5-14.5) Platelet Count 260 x10^3/uL (140-400) Neutrophils (%) (Auto) 52 % (31-73) Lymphocytes (%) (Auto) 24 % (24-48) Monocytes (%) (Auto) 9 % (0-9) Eosinophils (%) (Auto) 12 % (0-3) Basophils (%) (Auto) 3 % (0-3) Neutrophils # (Auto) 2.7 x10^3uL (1.8-7.7) Lymphocytes # (Auto) 1.3 x10^3/uL (1.0-4.8) Monocytes # (Auto) 0.5 x10^3/uL (0.0-1.1) Eosinophils # (Auto) 0.6 x10^3/uL (0.0-0.7) Basophils # (Auto) 0.2 x10^3/uL (0.0-0.2) Sodium Level 139 mmol/L (136-145) Potassium Level 4.3 mmol/L (3.5-5.1) Chloride Level 106 mmol/L (98-107) Carbon Dioxide Level 26 mmol/L (21-32) Anion Gap 7 (6-14) Blood Urea Nitrogen 19 mg/dL (7-20) Creatinine 0.6 mg/dL (0.6-1.0) Estimated GFR (Cockcroft-Gault) 122.6 Glucose Level 81 mg/dL (70-99) Calcium Level 8.5 mg/dL (8.5-10.1) Phosphorus Level 3.7 mg/dL (2.6-4.7) Magnesium Level 2.0 mg/dL (1.8-2.4) Triglycerides Level 55 mg/dL (0-150) Micro Microbiology 03/06/18 Blood Culture - Final, Complete NO GROWTH AFTER 5 DAYS 03/05/18 Urine Culture - Final, Complete 03/05/18 Urine Culture Result 1 (ROYA) - Final, Complete 03/05/18 Antimicrobic Susceptibility - Final, Complete Objective Assessment GNR sepsis - POA 03/05 06/16 bottles - no growth so far. ? contamination vs true but clinically much better Fever - better leukopenia - fluctuates, better UTI - POA - E.coli EC fistula Leg edema. No DVT Plan Plan of Care Zosyn,,,, can be d/c ed , and pt can be d/c ed home F/u labs and cults - blood Supportive care JOSSY TATUM MD Mar 14, 2018 11:52
[2018-03-14] MEDS: TPN PER PHARMACY MC PRN (12:50)
[2018-03-14 15:00] VITALS: BP 126/53
[2018-03-14 19:00] VITALS: BP 153/82
[2018-03-14] MEDS ORDERED: [UNRECOGNIZED DRUG - OTHER] IV SCH ×10 (22:00)
[2018-03-14] MEDS ORDERED: DEXTROSE 70% IV SCH ×10 (22:00)
[2018-03-14] MEDS ORDERED: AMINO ACIDS IV SCH ×10 (22:00)
[2018-03-14] MEDS ORDERED: TOTAL PARENTERAL NUTRITION IV SCH ×10 (22:00)
[2018-03-14 23:00] VITALS: BP 147/63
[2018-03-15] MEDS: HYDROmorphone 2 MG/ML VIAL IV PRN ×4 (02:55→17:54)
[2018-03-15 03:00] VITALS: BP 162/81
[2018-03-15] MEDS: PIPERACILLIN/TAZOBACTAM 3.375 GM in IV NORMAL SALINE 50ML 50 ML IV SCH (05:21)
[2018-03-15 06:36] LABS: CALCIUM 9.1 mg/dL (8.5-10.1); CREATININE 0.6 mg/dL (0.6-1.0); GFR 122.2; MAGNESIUM 2.3 mg/dL (1.8-2.4); POTASSIUM 4.6 mmol/L (3.5-5.1)
[2018-03-15 07:57] VITALS: BP 131/70
[2018-03-15] MEDS: SERTRALINE 50 MG TABLET. PO SCH (08:28)
[2018-03-15] MEDS: LOSARTAN POTASSIUM 50 MG TABLET. PO SCH (08:28)
[2018-03-15] MEDS: PANTOPRAZOLE 40 MG TABLET.DR. PO SCH (08:28)
[2018-03-15] MEDS: fentaNYL 25MCG/HR PATCH 1 PATCH PATCH.TD72 TD SCH (08:41)
[2018-03-15] MEDS: ZINC OXIDE 20% TOPICAL OINTMENT 28GM TUBE. TP SCH (09:00)
[2018-03-15] MEDS: NYSTATIN 100,000 UNIT/GM TOPICAL CREAM 15GM TUBE. TP SCH (09:00)
[2018-03-15] MEDS: LIDOCAINE 5% TOPICAL OINTMENT 35GM TUBE. TP SCH (09:00)
--- NOTE | 2018-03-15 09:59 | PDOC ---
PROGRESS NOTES Subjective Subjective feels well. bp okay. lab reviewed. less leg swelling Objective Objective Vital Signs Date Time Temp Pulse Resp B/P (MAP) Pulse Ox O2 Delivery O2 Flow Rate FiO2 03/15/18 08:41 Room Air 03/15/18 08:28 80 131/70 03/15/18 08:27 18 03/15/18 07:57 97.7 98 97.7 Intake and Output 03/15/18 07:00 Intake Total 300 ml Balance 300 ml Intake Oral 300 ml # Voids 2 # Bowel Movements 1 Physical Exam Abdomen: Soft Heart: Regular rate, Normal S1, Normal S2 Extremities: Other (1 plus bipedal edema) General: Alert HEENT: Atraumatic Lungs: Clear to auscultation Neuro: Normal speech Psych/Mental Status: Mental status NL Skin: No rashes Assessment Assessment ProblemsGNR bacteremia 1/3 positive. with sepsis POA 2. e. coli in urine 3. Chest pain.atypical and resolved 4. Enterocutaneous fistula. 5. Enterovesical fistula. 6. Hypokalemia. resolved 7. Hypomagnesemia. resolved 8. Anemia of chronic disease. 9. Severe protein-calorie malnutrition. hypertension bilateral LLE edema. bilateral LE venous doppler neg for DVT Medical Problems: (1) Vesicoenteric fistula Status: Acute Plan Plan of Care d/c zosyn dismiss today Comment Review of Relevant I have reviewed the following items lucila (where applicable) has been applied. Labs Laboratory Tests Test 03/14/18 05:30 03/15/18 06:15 White Blood Count 5.2 x10^3/uL (4.0-11.0) Red Blood Count 3.22 x10^6/uL (3.50-5.40) Hemoglobin 8.6 g/dL (12.0-15.5) Hematocrit 26.6 % (36.0-47.0) Mean Corpuscular Volume 83 fL (79-100) Mean Corpuscular Hemoglobin 27 pg (25-35) Mean Corpuscular Hemoglobin Concent 32 g/dL (31-37) Red Cell Distribution Width 18.4 % (11.5-14.5) Platelet Count 260 x10^3/uL (140-400) Neutrophils (%) (Auto) 52 % (31-73) Lymphocytes (%) (Auto) 24 % (24-48) Monocytes (%) (Auto) 9 % (0-9) Eosinophils (%) (Auto) 12 % (0-3) Basophils (%) (Auto) 3 % (0-3) Neutrophils # (Auto) 2.7 x10^3uL (1.8-7.7) Lymphocytes # (Auto) 1.3 x10^3/uL (1.0-4.8) Monocytes # (Auto) 0.5 x10^3/uL (0.0-1.1) Eosinophils # (Auto) 0.6 x10^3/uL (0.0-0.7) Basophils # (Auto) 0.2 x10^3/uL (0.0-0.2) Sodium Level 139 mmol/L (136-145) 141 mmol/L (136-145) Potassium Level 4.3 mmol/L (3.5-5.1) 4.6 mmol/L (3.5-5.1) Chloride Level 106 mmol/L (98-107) 109 mmol/L (98-107) Carbon Dioxide Level 26 mmol/L (21-32) 25 mmol/L (21-32) Anion Gap 7 (6-14) 7 (6-14) Blood Urea Nitrogen 19 mg/dL (7-20) 20 mg/dL (7-20) Creatinine 0.6 mg/dL (0.6-1.0) 0.6 mg/dL (0.6-1.0) Estimated GFR (Cockcroft-Gault) 122.6 122.2 Glucose Level 81 mg/dL (70-99) 83 mg/dL (70-99) Calcium Level 8.5 mg/dL (8.5-10.1) 9.1 mg/dL (8.5-10.1) Phosphorus Level 3.7 mg/dL (2.6-4.7) Magnesium Level 2.0 mg/dL (1.8-2.4) 2.3 mg/dL (1.8-2.4) Triglycerides Level 55 mg/dL (0-150) Laboratory Tests Test 03/15/18 06:15 Sodium Level 141 mmol/L (136-145) Potassium Level 4.6 mmol/L (3.5-5.1) Chloride Level 109 mmol/L (98-107) Carbon Dioxide Level 25 mmol/L (21-32) Anion Gap 7 (6-14) Blood Urea Nitrogen 20 mg/dL (7-20) Creatinine 0.6 mg/dL (0.6-1.0) Estimated GFR (Cockcroft-Gault) 122.2 Glucose Level 83 mg/dL (70-99) Calcium Level 9.1 mg/dL (8.5-10.1) Magnesium Level 2.3 mg/dL (1.8-2.4) Microbiology 03/06/18 Blood Culture - Final, Complete NO GROWTH AFTER 5 DAYS 03/05/18 Urine Culture - Final, Complete 03/05/18 Urine Culture Result 1 (ROYA) - Final, Complete 03/05/18 Antimicrobic Susceptibility - Final, Complete Medications Current Medications Sodium Chloride 1,000 ml @ 1,000 mls/hr 1X ONCE IV Last administered on at 23:47; Start 03/05/18 at 23:15; Stop 03/06/18 at 00:14; Status DC Fentanyl Citrate (Fentanyl 2ml Vial) 75 mcg 1X ONCE IV Last administered on at 23:46; Start 03/05/18 at 23:15; Stop 03/05/18 at 23:16; Status DC Ceftriaxone Sodium 1 gm/ Dextrose 50 ml @ 100 mls/hr Q24H IV ; Start 03/05/18 at 23:15; Status UNV Ceftriaxone Sodium 50 ml @ 100 mls/hr 1X ONCE IV ; Start 03/05/18 at 23:15; Stop 03/05/18 at 23:44; Status Cancel Ceftriaxone Sodium (Rocephin) 1 gm Q24H IVP ; Start 03/06/18 at 21:00; Status Cancel Ceftriaxone Sodium 50 ml @ 100 mls/hr 1X ONCE IV Last administered on at 23:47; Start 03/05/18 at 23:30; Stop 03/05/18 at 23:59; Status DC Info (Tpn Per Pharmacy) 1 each PRN DAILY PRN MC SEE COMMENTS Last administered on 03/14/18at 12:50; Start 03/06/18 at 00:15 Amino Acids/ Glycerin/ Electrolytes 1,000 ml @ 80 mls/hr [id number] IV Last administered on 03/06/18at 02:23; Start 03/06/18 at 01:30; Stop 03/06/18 at 21:59 ; Status DC Hydromorphone HCl (Dilaudid) 2 mg PRN Q6HRS PRN PO PAIN; Start 03/06/18 at 00: 15; Stop 03/06/18 at 10:54; Status DC Ondansetron HCl (Zofran) 4 mg PRN Q8HRS PRN IV NAUSEA/VOMITING Last administered on 03/06/18at 16:40; Start 03/06/18 at 00:15; Stop 03/07/18 at 00:14 ; Status DC Fentanyl Citrate (Fentanyl 2ml Vial) 50 mcg PRN Q2HR PRN IV PAIN Last administered on 03/06/18at 02:40; Start 03/06/18 at 00:15; Stop 03/07/18 at 00:14 ; Status DC Aspirin (Elma Aspirin) 325 mg 1X ONCE PO Last administered on 03/06/18at 00:33 ; Start 03/06/18 at 00:30; Stop 03/06/18 at 00:31; Status DC Potassium Chloride (Klor-Con) 40 meq 1X ONCE PO Last administered on at 01:14; Start 03/06/18 at 00:30; Stop 03/06/18 at 00:31; Status DC Potassium Chloride (KCl Oral Soln) 20 meq STK-MED ONCE .ROUTE ; Start 03/06/18 at 01:22; Stop 03/06/18 at 01:23; Status DC Influenza Virus Vaccine (Afluria Trivalent 0940-1204 Syringe) 0.5 ml ONCE ONCE VAX IM Last administered on 03/06/18at 13:59; Start 03/06/18 at 09:00; Stop at 09:01; Status DC Info (Do NOT chart on this placeholder) 1 each PRN 1X PRN MC SEE COMMENTS; Start 03/06/18 at 03:15; Status Cancel Linezolid/Dextrose 300 ml @ 300 mls/hr Q12HR IV Last administered on at 20:44; Start 03/06/18 at 12:00; Stop 03/09/18 at 09:19; Status DC Piperacillin Sod/ Tazobactam Sod 3.375 gm/Sodium Chloride 50 ml @ 100 mls/hr Q6HRS IV Last administered on 03/15/18 05:21; Start 03/06/18 at 12:00 Acetaminophen (Tylenol) 650 mg PRN Q6HRS PRN PO MILD PAIN / TEMP; Start at 10:45 Sertraline HCl (Zoloft) 50 mg DAILY PO Last administered on 03/15/18 08:28; Start 03/06/18 at 12:00 Lorazepam (Ativan) 0.5 mg PRN Q6HRS PRN PO ANXIETY / AGITATION Last administered on 03/07/18 02:29; Start 03/06/18 at 10:45 Fentanyl (Duragesic 25mcg/ Hr Patch) 1 patch Q3DAYS TD Last administered on 08:41; Start 03/06/18 at 12:00 Ondansetron HCl (Zofran Odt) 4 mg PRN Q6HRS PRN PO NAUSEA/VOMITING Last administered on 03/12/18 22:12; Start 03/06/18 at 10:45 Hydromorphone HCl (Dilaudid) 2 mg PRN Q4HRS PRN IV MODERATE PAIN Last administered on 03/13/18 23:35; Start 03/06/18 at 10:45 Hydromorphone HCl (Dilaudid) 4 mg PRN Q4HRS PRN IV SEVERE PAIN Last administered on 03/15/18 08:27; Start 03/06/18 at 10:45 Diphenhydramine HCl (Benadryl) 25 mg PRN Q6HRS PRN PO ITCHING; Start 03/06/18 at 10:45 Pantoprazole Sodium (Protonix) 40 mg DAILYAC PO Last administered on 03/15/18 08:28; Start 03/06/18 at 12:00 Zolpidem Tartrate (Ambien) 5 mg PRN QHS PRN PO INSOMNIA Last administered on 22:12; Start 03/06/18 at 10:45 Magnesium Sulfate 50 ml @ 25 mls/hr 1X ONCE IV Last administered on 03/06/18at 14:02; Start 03/06/18 at 12:00; Stop 03/06/18 at 13:59; Status DC Potassium Chloride/Water 50 ml @ 50 mls/hr Q1H IV Last administered on at 12:00; Start 03/06/18 at 11:00; Stop 03/06/18 at 12:59; Status DC Lidocaine (Xylocaine) 1 sang BID TP Last administered on 03/14/18at 22:05; Start 03/06/18 at 12:00 Zinc Oxide (Zinc Oxide 20% Topical) 1 sang BID TP Last administered on at 22:05; Start 03/06/18 at 12:00 Sodium Chloride 210 meq/Potassium Chloride 60 meq/ Potassium Phosphate 6.8 mmol/ Magnesium Sulfate 32 meq/ Multivitamins 10 ml/Chromium/ Copper/Manganese/ Seleni /Zn 1 ml/ Potassium Acetate 20 meq/Total Parenteral Nutrition/Amino Acids/ Dextrose/ Fat Emulsion Intravenous 1,920 ml @ 80 mls/hr TPN CONT IV Last administered on 03/06/18at 21:07; Start 03/06/18 at 22:00; Stop 03/07/18 at 21:59 ; Status DC Nystatin (Mycostatin) 1 sang BID TP Last administered on 03/14/18at 22:05; Start 03/06/18 at 21:00 Sodium Chloride 210 meq/Potassium Chloride 60 meq/ Potassium Phosphate 6.8 mmol/ Magnesium Sulfate 32 meq/ Multivitamins 10 ml/Chromium/ Copper/Manganese/ Seleni /Zn 1 ml/ Potassium Acetate 20 meq/Total Parenteral Nutrition/Amino Acids/ Dextrose/ Fat Emulsion Intravenous 1,920 ml @ 80 mls/hr TPN CONT IV Last administered on 03/07/18at 21:45; Start 03/07/18 at 22:00; Stop 03/08/18 at 21:59 ; Status DC Sodium Chloride 210 meq/Potassium Chloride 40 meq/ Potassium Phosphate 6.8 mmol/ Magnesium Sulfate 26 meq/ Multivitamins 10 ml/Chromium/ Copper/Manganese/ Seleni /Zn 1 ml/ Potassium Acetate 20 meq/Total Parenteral Nutrition/Amino Acids/ Dextrose/ Fat Emulsion Intravenous 1,920 ml @ 80 mls/hr TPN CONT IV Last administered on 03/08/18at 22:01; Start 03/08/18 at 22:00; Stop 03/09/18 at 21:59 ; Status DC Alteplase, Recombinant (Cathflo) 4 mg 1X ONCE INT CAT Last administered on at 07:58; Start 03/09/18 at 06:00; Stop 03/09/18 at 06:01; Status DC Dextrose/Sodium Chloride 1,000 ml @ 80 mls/hr [id number] IV Last administered on 03/09/18at 09:42; Start 03/09/18 at 09:30; Stop 03/09/18 at 21:59; Status DC Sodium Chloride 210 meq/Potassium Chloride 20 meq/ Potassium Acetate 20 meq/ Potassium Phosphate 6.8 mmol/Magnesium Sulfate 20 meq/ Multivitamins 10 ml/ Chromium/ Copper/Manganese/ Seleni/Zn 1 ml/ Total Parenteral Nutrition/Amino Acids/Dextrose/ Fat Emulsion Intravenous 1,920 ml @ 80 mls/hr TPN CONT IV Last administered on 03/09/18at 22:11; Start 03/09/18 at 22:00; Stop 03/10/18 at 21:59; Status DC Sodium Chloride 210 meq/Potassium Chloride 20 meq/ Potassium Acetate 20 meq/ Potassium Phosphate 6.8 mmol/Magnesium Sulfate 20 meq/ Multivitamins 10 ml/ Chromium/ Copper/Manganese/ Seleni/Zn 1 ml/ Total Parenteral Nutrition/Amino Acids/Dextrose/ Fat Emulsion Intravenous 1,920 ml @ 80 mls/hr TPN CONT IV Last administered on 03/10/18at 22:01; Start 03/10/18 at 22:00; Stop 03/11/18 at 21:59; Status DC Amlodipine Besylate (Norvasc) 2.5 mg DAILY PO Last administered on 03/11/18at 10 :19; Start 03/11/18 at 11:00; Stop 03/11/18 at 22:31; Status DC Sodium Chloride 210 meq/Potassium Chloride 20 meq/ Potassium Acetate 20 meq/ Potassium Phosphate 6.8 mmol/Magnesium Sulfate 20 meq/ Multivitamins 10 ml/ Chromium/ Copper/Manganese/ Seleni/Zn 1 ml/ Total Parenteral Nutrition/Amino Acids/Dextrose/ Fat Emulsion Intravenous 1,920 ml @ 80 mls/hr TPN CONT IV Last administered on 03/11/18at 21:48; Start 03/11/18 at 22:00; Stop 03/12/18 at 21:59; Status DC Amlodipine Besylate (Norvasc) 5 mg DAILY PO Last administered on 03/12/18at 08: 36; Start 03/12/18 at 09:00; Stop 03/12/18 at 10:08; Status DC Clonidine HCl (Catapres) 0.1 mg PRN Q6HRS PRN PO HYPERTENSION, SEE COMMENTS Last administered on 03/11/18at 23:01; Start 03/11/18 at 22:45 Furosemide (Lasix) 40 mg 1X ONCE PO Last administered on 03/12/18at 10:45; Start 03/12/18 at 10:30; Stop 03/12/18 at 10:31; Status DC Losartan Potassium (Cozaar) 50 mg DAILY PO Last administered on 03/15/18at 08:28 ; Start 03/12/18 at 10:30 Sodium Chloride 210 meq/Potassium Chloride 20 meq/ Potassium Acetate 20 meq/ Potassium Phosphate 6.8 mmol/Magnesium Sulfate 20 meq/ Multivitamins 10 ml/ Chromium/ Copper/Manganese/ Seleni/Zn 1 ml/ Total Parenteral Nutrition/Amino Acids/Dextrose/ Fat Emulsion Intravenous 1,920 ml @ 80 mls/hr TPN CONT IV Last administered on 03/12/18at 22:08; Start 03/12/18 at 22:00; Stop 03/13/18 at 21:59; Status DC Sodium Chloride 210 meq/Potassium Chloride 40 meq/ Potassium Acetate 20 meq/ Potassium Phosphate 6.8 mmol/Magnesium Sulfate 30 meq/ Multivitamins 10 ml/ Chromium/ Copper/Manganese/ Seleni/Zn 1 ml/ Total Parenteral Nutrition/Amino Acids/Dextrose/ Fat Emulsion Intravenous 1,920 ml @ 80 mls/hr TPN CONT IV Last administered on 03/13/18at 22:10; Start 03/13/18 at 22:00; Stop 03/14/18 at 21:59; Status DC Furosemide (Lasix) 40 mg 1X ONCE PO Last administered on 03/13/18at 12:57; Start 03/13/18 at 11:00; Stop 03/13/18 at 11:01; Status DC Sodium Chloride 210 meq/Potassium Chloride 40 meq/ Potassium Acetate 20 meq/ Potassium Phosphate 6.8 mmol/Magnesium Sulfate 30 meq/ Multivitamins 10 ml/ Chromium/ Copper/Manganese/ Seleni/Zn 1 ml/ Total Parenteral Nutrition/Amino Acids/Dextrose/ Fat Emulsion Intravenous 1,920 ml @ 80 mls/hr TPN CONT IV Last administered on 03/14/18at 22:06; Start 03/14/18 at 22:00; Stop 03/15/18 at 21:59 Active Scripts Active FENTANYL 25mcg/hr (Fentanyl) 1 Each Patch.td72 1 Patch TD Q72H 30 Days Sertraline Hcl 50 Mg Tablet 50 Mg PO DAILY 30 Days Famotidine 20 Mg Tablet 20 Mg PO BID 60 Days Lidocaine 35.44 Gm Oint...g. 1 Sang TP BID Reported Zofran Odt (Ondansetron) 4 Mg Tab.rapdis 1 Tab SL PRN Q8HRS PRN Zinc Oxide 56.7 Gm Oint...g. 56.7 Gm TP PRN BID Dilaudid (Hydromorphone Hcl) 2 Mg Tablet 1 Tab PO PRN QID PRN Lorazepam 0.5 Mg Tablet 0.5 Mg PO Q6HRS PRN Vitals/I & O Vital Sign - Last 24 Hours 03/14/18 03/14/18 03/14/18 03/14/18 11:00 14:25 15:00 18:39 Temp 97.9 97.9 97.9 97.9 Pulse 78 88 Resp 16 20 16 20 B/P (MAP) 143/82 (102) 126/53 (77) Pulse Ox 98 98 100 100 O2 Delivery Room Air Room Air Room Air Room Air 03/14/18 03/14/18 03/14/18 03/14/18 19:00 20:00 22:55 23:00 Temp 97.7 97.5 97.7 97.5 Pulse 93 73 Resp 18 16 18 B/P (MAP) 153/82 (105) 147/63 (91) Pulse Ox 100 100 100 O2 Delivery Room Air Room Air Room Air Room Air 03/15/18 03/15/18 03/15/18 03/15/18 02:55 03:00 03:30 07:57 Temp 97.7 97.7 97.7 97.7 Pulse 72 80 Resp 14 18 15 20 B/P (MAP) 162/81 (108) 131/70 (90) Pulse Ox 100 100 100 98 O2 Delivery Room Air Room Air Room Air 03/15/18 03/15/18 03/15/18 08:27 08:28 08:41 Pulse 80 Resp 18 B/P (MAP) 131/70 O2 Delivery Room Air Room Air Intake and Output 03/14/18 03/14/18 03/15/18 15:00 23:00 07:00 Intake Total 300 ml Balance 300 ml Nutrition Consultation Dietary Evaluation: Recommendations by RD: PPN/TPN Comments: continue home TPN continue with cardiac diet Expected Outcomes/Goals: to meet > 75% est nutr needs- met via po intake and TPN Malnutrition Findings: Body Fat Depletion (Non Severe: Mild Depletion Weight Status: Appropriate BENITA LUTZ MD Mar 15, 2018 09:59
[2018-03-15] MEDS ORDERED: LOSA50TA2 PO (10:04)
--- NOTE | 2018-03-15 10:05 | DISCH ---
DISCHARGE WITH HOME HEALTH DISCHARGE INFORMATION: Discharge Date: Mar 15, 2018 Final Diagnosis: Problems Medical Problems: (1) Vesicoenteric fistula Status: Acute Condition on Discharge: Stable CODE STATUS: Code Status: Full HOME HEALTH: Face to Face: I certify this patient is under my care and that I, or a nurse practitioner or physician's virtual assistant for advertisers working with me, had a face to face encounter that meets the physician face to face encounter requirements with this patient on []. POST DISCHARGE ORDERS: Activity Instructions for Disc: Activity as tolerated Weight Bearing Status after Di: As tolerated Bathing Instructions: Shower-keep dressing dry, No Tub Bath until see Wound/Incision Care: Reinforce dressing PRN, Routine catheter care CHECKS AFTER DISCHARGE: Checks after discharge: Check blood press - daily, Check blood sugar, ac/hs FOLLOW-UP: Follow up with: dr. lutz in 1 week TREATMENT/EQUIPMENT ORDERS: Adaptive Equipment Issued: None CERTIFICATION STATEMENT: Certification Statement: Certification Statement: Based on the above finding, I certify that this patient is confined to the home and needs intermittent halfway care, physical therapy and/or speech therapy, or continues to need occupational therapy.~ This patient is under my care, and I have initiated the establishment of the plan of care.~ This patient will be followed by myself or a community physician who will periodically review the plan of care. Home Meds Active Scripts Losartan Potassium (COZAAR) 50 Mg Tablet, 50 MG PO DAILY for 30 Days, #30 TAB Prov:BENITA LUTZ MD 03/15/18 Fentanyl (FENTANYL 25mcg/hr) 1 Each Patch.td72, 1 PATCH TD Q72H for 30 Days, # 10 PATCH Prov:BENITA LUTZ MD 02/18/17 Sertraline Hcl (SERTRALINE HCL) 50 Mg Tablet, 50 MG PO DAILY for 30 Days, #30 TAB Prov:BENITA LUTZ MD 01/05/17 Famotidine (FAMOTIDINE) 20 Mg Tablet, 20 MG PO BID for 60 Days, #120 TAB Prov:BENITA LUTZ MD 01/05/17 Lidocaine (LIDOCAINE) 35.44 Gm Oint...g., 1 WANDY TP BID, #30 Prov:BENITA LUTZ MD 12/18/15 Reported Medications Ondansetron (ZOFRAN ODT) 4 Mg Tab.rapdis, 1 TAB SL PRN Q8HRS PRN for NAUSEA/ VOMITING 01/09/17 Zinc Oxide (ZINC OXIDE) 56.7 Gm Oint...g., 56.7 GM TP PRN BID 01/09/17 Hydromorphone Hcl (DILAUDID) 2 Mg Tablet, 1 TAB PO PRN QID PRN for PAIN 01/09/17 Lorazepam (LORAZEPAM) 0.5 Mg Tablet, 0.5 MG PO Q6HRS PRN for ANXIETY, TAB 08/31/16 BENITA LUTZ MD Mar 15, 2018 10:05
--- NOTE | 2018-03-15 10:10 | PDOC ---
Provider Note Provider Note discharge summary dictated # [id number] BENITA LUTZ MD Mar 15, 2018 10:10
--- NOTE | 2018-03-15 10:33 | PDOC ---
Subjective: Subjective: Tolerating PO, feeling better, glad to get to go home. Objective: Vital Signs: Vital Signs Date Time Temp Pulse Resp B/P (MAP) Pulse Ox O2 Delivery O2 Flow Rate FiO2 03/15/18 08:41 Room Air 03/15/18 08:28 80 131/70 03/15/18 08:27 18 03/15/18 07:57 97.7 98 97.7 Labs: Laboratory Tests Test 03/15/18 06:15 Sodium Level 141 mmol/L Potassium Level 4.6 mmol/L Chloride Level 109 mmol/L Carbon Dioxide Level 25 mmol/L Anion Gap 7 Blood Urea Nitrogen 20 mg/dL Creatinine 0.6 mg/dL Estimated GFR (Cockcroft-Gault) 122.2 Glucose Level 83 mg/dL Calcium Level 9.1 mg/dL Magnesium Level 2.3 mg/dL PE: GEN: NAD NEURO/PSYCH: A & O 3 A/P: Chronic fistulae - on TPN -- DC per primary, stable GI-garcia. MIESHA RICO Mar 15, 2018 10:33
[2018-03-15 11:00] VITALS: BP 131/70
[2018-03-15 15:00] VITALS: BP 151/74
--- NOTE | 2018-03-15 15:29 | DS ---
DATE OF DISCHARGE: 03/15/2018 CONSULTANTS: Dr. Garcia Suggs, Dr. Nicholas and Dr. Roderick Ovalle. FINAL DIAGNOSES: 1. Gram-negative keisha bacteremia with sepsis. 2. Escherichia coli urinary tract infection. 3. Atypical chest pain. 4. Enterocutaneous fistula. 5. Enterovesical fistula. 6. Hypokalemia. 7. Hypomagnesemia. 8. Anemia of chronic disease. 9. Severe protein-calorie malnutrition. 10. Bilateral lower extremity edema. 11. Hypertension. HOSPITAL COURSE: The patient is a 63-year-old female with a history of enterocutaneous fistula and enterovesical fistula maintained on home total parenteral nutrition, who was admitted to [facility] through the Emergency Room on 03/06/2018 with a fever of 101 degrees and chest pain lasting about an hour with some vomiting and dysuria. The patient had been seen in the office on 03/03/2018 with dysuria and urinalysis, urine culture was ordered. She was treated with Levaquin 250 mg every day for a 7-day course. The patient was admitted to the hospital. One out of three blood cultures was positive for gram-negative keisha. Urine culture grew E. coli. The patient received IV antibiotics, seen in consultation by Dr. Garcia Suggs in consultation. She eventually just received IV Zosyn. In addition, her blood pressure was elevated and she was started on losartan. She had increased lower extremity edema and received a couple of doses of furosemide with leg elevation, which improved. She had hypokalemia and hypomagnesemia, which resolved with supplementation and that she needed less potassium and magnesium, TPN with levels being normal today. She will be dismissed to home and was told to make an appointment to see Dr. Cisneros in 1 week. Her TPN formula has been changed and I spoke with the pharmacist to speak with her outpatient pharmacy. She currently has 40 mEq of potassium chloride per 24 hours and magnesium sulfate 30 mEq once a day and that is in her TPN. She will be dismissed on Dilaudid 2 mg p.o. q.i.d. p.r.n., Protonix 40 mg every day, fentanyl 25 mcg patch every 72 hours, Lidoderm ointment followed by zinc oxide b.i.d. to her abdominal wall, lorazepam 0.5 mg every 6 hours p.r.n., melatonin 3 mg at bedtime, sertraline 50 mg every day, Zofran 4 mg every 6 hours p.r.n., TPN will be 80 mL an hour at home continuously and also losartan is 50 mg every day. She will make an appointment to see Dr. Cisneros in the office next week and she finished her IV antibiotics today. RODERICK CISNEROS MD DR: [id number]/jd JOB#: [id number] / [id number]
[2018-03-15] MEDS ORDERED: HEPARIN PF 500 UNIT/5 ML DISP.SYRIN. IV ONE (17:45)
== END 2018-03-15 18:45 | disposition home health service (06) | DRG 871 ==
LOC: ER 22:00 → 5 NORTH 03-06 00:15
PROVIDERS: ADMIT Internal Medicine; ATTEND Internal Medicine
DX: A41.50 Gram-negative sepsis, unspecified (principal); E43 Unspecified severe protein-calorie malnutrition; N39.0 Urinary tract infection, site not specified; K57.92 Diverticulitis of intestine, part unspecified, without perforation or abscess without bleeding; N32.1 Vesicointestinal fistula; K63.2 Fistula of intestine; N18.9 Chronic kidney disease, unspecified; I12.9 Hypertensive chronic kidney disease with stage 1 through stage 4 chronic kidney disease, or unspecified chronic kidney disease; F41.9 Anxiety disorder, unspecified; G89.29 Other chronic pain; E87.6 Hypokalemia; E83.42 Hypomagnesemia; D63.8 Anemia in other chronic diseases classified elsewhere; K57.90 Diverticulosis of intestine, part unspecified, without perforation or abscess without bleeding; B96.20 Unspecified Escherichia coli [E. coli] as the cause of diseases classified elsewhere; R07.89 Other chest pain; E03.9 Hypothyroidism, unspecified; E87.5 Hyperkalemia; K21.9 Gastro-esophageal reflux disease without esophagitis; F32.9 Major depressive disorder, single episode, unspecified; Z16.11 Resistance to penicillins; Z85.41 Personal history of malignant neoplasm of cervix uteri; Z90.710 Acquired absence of both cervix and uterus; Z90.49 Acquired absence of other specified parts of digestive tract; Z86.718 Personal history of other venous thrombosis and embolism; Z87.11 Personal history of peptic ulcer disease; Z86.14 Personal history of Methicillin resistant Staphylococcus aureus infection; Z68.22 Body mass index [BMI] 22.0-22.9, adult; Z88.6 Allergy status to analgesic agent; Z88.1 Allergy status to other antibiotic agents; Z91.041 Radiographic dye allergy status
CPT/HCPCS: 36415; 71045; 74176; 80048; 80053; 81001; 82550; 82962; 83605; 83690; 83735; 84100; 84478; 84484; 85025; 85610; 85730; 87040; 87086; 87186; 87205; 87641; 90471; 90756; 93005; 93306; 93970; J0690; J1170; J2020; J2405; J2543; J2997; J3010; J3475; J3480; J7030; Q0162; 99285-25; Q2035

== ENCOUNTER 2018-06-30 09:24 | Inpatient (IN) | payer MEDICARE ==
[~2018-06-30] VITALS: Ht 160 cm; Wt 48.1 kg
[~2018-06-30 09:24] MED LIST changes: -AMLO10TA6 PO; +AMLO10TA8 PO; +AMLO5TAB10 PO; -AMLO5TAB7 PO; -DULO30CA43 PO; +DULO30CA44 PO; +HYDR-2145 PO; -HYDR25TA9 PO; +LACT1CAP19 PO; +LOSA-73 PO; +NYST15CR TP; -PANT40TA3 PO; -PANT40TA5 PO; +PANT40TA77 PO; +Pantoprazole PO; +Tpn Per Pharmacy MC
[2018-06-30 09:46] LABS: BILIRUBIN,URINE NEGATIVE (NEG); CLARITY,URINE CLOUDY; COLOR,URINE YELLOW; NITRITE,URINE NEGATIVE (NEG); PROTEIN,URINE 100 mg/dL (NEG-TRACE)
[2018-06-30 10:00] LABS: BACTERIA,URINE MANY /HPF (0-FEW); RBC,URINE 0 /HPF (0-2); SQUAMOUS EPITHELIAL CELL,UR MANY /LPF; WBC,URINE TNTC /HPF (0-4)
--- NOTE | 2018-06-30 10:26 | PHYS DOC ---
Past Medical History Past Medical History: Anxiety, Cancer, Diverticulitis, DVT, Hypertension, UTI, Other Additional Past Medical Histor: abd pain,septicemia,Vesicoenteric fistula, cervical CA,blood clot in [place] Past Surgical History: Hysterectomy, Other Additional Past Surgical Histo: bowel resection,ab fistula,BILAT HIP Alcohol Use: None Drug Use: None Adult General Chief Complaint Chief Complaint: low hb HPI HPI 63-year-old -[place] female presenting the emergency department today with low hemoglobin. She saw her home healthcare nurse yesterday where labs were drawn and her hemoglobin was reportedly around 5. 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 She denies any dark stool or blood in her stool. onset yesterday. location generalized. no alleviating factors. Review of systems is negative for lightheadedness syncope chest pain shortness of breath. All other review of systems is negative unless otherwise noted in history of present illness. ED course: 63-year-old female with a history of fistula and low potassium and low magnesium history of anemia chronic disease presenting to the emergency department today with a low hemoglobin found yesterday after labs are drawn by home health care nurse. On arrival she is well-appearing alert with mildly elevated heart rate. Satting well on room air. The remainder the exam is below. Blood work obtained here in the emergency department along with a type and screen. Blood work shows low potassium and magnesium. CBC shows anemia is just below baseline. EKG obtained and reviewed by myself shows sinus rhythm with a mildly tachycardic rate. QRS is within normal limits. QT is within normal limits. Patient's magnesium is low as well. lipase above the reference range of normal. Albumin low. Troponin within normal limits. We will admit the patient for IV electrolyte repletion. I will admit the patient to Dr. Cisneros who is able to see the patient in the emergency department. Basic bridge orders placed. I ordered for the patient to get IV potassium and magnesium. CT abdomen pelvis is negative for acute pathology. Review of Systems Review of Systems SEE ABOVE. Current Medications Current Medications Current Medications Medications (Trade) Dose Ordered Sig/Alex Start Time Stop Time Status Last Admin Dose Admin Fentanyl Citrate (Fentanyl 2ml Vial) 25 mcg 1X PRN PRN 06/30/18 10:45 06/30/18 10:56 25 MCG Piperacillin Sod/ Tazobactam Sod (Zosyn Per Pharmacy) 1 each PRN DAILY PRN 06/30/18 10:30 06/30/18 12:46 DC Piperacillin Sod/ Tazobactam Sod 3.375 gm/Sodium Chloride 50 ml @ 100 mls/hr ONCE ONCE 06/30/18 10:30 06/30/18 10:59 DC 06/30/18 11:03 100 MLS/HR Potassium Chloride/Sodium Chloride 1,000 ml @ 75 mls/hr 1X ONCE 06/30/18 11:00 07/01/18 00:19 06/30/18 11:03 75 MLS/HR Sodium Chloride 500 ml @ 500 mls/hr 1X ONCE 06/30/18 10:30 06/30/18 10:55 DC Allergies Allergies Allergies Coded Allergies Type Severity Reaction Last Updated Verified Iodinated Contrast- Oral and IV Dye Allergy Severe Anaphylaxis 09/14/17 Yes vancomycin Allergy Severe Swelling 09/14/17 Yes adhesive tape Allergy Intermediate Rash 09/14/17 Yes silver Allergy Intermediate Rash, Tegaderm film, can have on abd but no where else 09/14/17 Yes codeine Adverse Reaction Severe Nausea and Vomiting 09/14/17 Yes Physical Exam Physical Exam SEE ABOVE Constitutional: Well developed, well nourished, no acute distress HENT: Normocephalic, atraumatic, bilateral external ears normal, oropharynx moist, no oral exudates, nose normal. [] Eyes: PERRLA, EOMI, conjunctiva normal, no discharge. [] Neck: Normal range of motion, no tenderness, supple, no stridor. [] Cardiovascular:Heart rate regular rhythm, no murmur [] Lungs & Thorax: Bilateral breath sounds clear to auscultation [] Abdomen: Bowel sounds normal, soft, no tenderness, no masses, no pulsatile masses. Enteric cutaneous fistula present. Mildly macerated tissue around the fistula. Skin: Warm, dry, no erythema, no rash. [] Rectal exam performed in the presence of a female nurse shows no gross blood on visualization of the stool. No hemorrhoids present. Back: No tenderness, no CVA tenderness. [] Extremities: No tenderness, no cyanosis, no clubbing, ROM intact, no edema. [] Neurologic: Alert and oriented X 3, normal motor function, normal sensory function, no focal deficits noted. [] Psychologic: Affect normal, judgement normal, mood normal. [] Current Patient Data Vital Signs Vital Signs Date Time Temp Pulse Resp B/P (MAP) Pulse Ox O2 Delivery O2 Flow Rate FiO2 06/30/18 10:45 84 20 117/62 (80) 99 06/30/18 09:48 98.5 Room Air 98.5 Lab Values Laboratory Tests Test 06/30/18 09:37 06/30/18 10:15 06/30/18 10:20 Urine Collection Type Unknown Urine Color Yellow Urine Clarity Cloudy Urine pH 6.0 Urine Specific [place] 1.015 Urine Protein 100 mg/dL (NEG-TRACE) Urine Glucose (UA) Negative mg/dL (NEG) Urine Ketones (Stick) Negative mg/dL (NEG) Urine Blood Moderate (NEG) Urine Nitrite Negative (NEG) Urine Bilirubin Negative (NEG) Urine Urobilinogen Dipstick 1.0 mg/dL (0.2 mg/dL) Urine Leukocyte Esterase Large (NEG) Urine RBC 0 /HPF (0-2) Urine WBC Tntc /HPF (0-4) Urine Squamous Epithelial Cells Many /LPF Urine Bacteria Many /HPF (0-FEW) White Blood Count 4.9 x10^3/uL (4.0-11.0) Red Blood Count 2.96 x10^6/uL (3.50-5.40) L Hemoglobin 7.7 g/dL (12.0-15.5) L Hematocrit 23.2 % (36.0-47.0) L Mean Corpuscular Volume 78 fL (79-100) L Mean Corpuscular Hemoglobin 26 pg (25-35) Mean Corpuscular Hemoglobin Concent 33 g/dL (31-37) Red Cell Distribution Width 17.5 % (11.5-14.5) H Platelet Count 213 x10^3/uL (140-400) Neutrophils (%) (Auto) 62 % (31-73) Lymphocytes (%) (Auto) 21 % (24-48) L Monocytes (%) (Auto) 9 % (0-9) Eosinophils (%) (Auto) 7 % (0-3) H Basophils (%) (Auto) 1 % (0-3) Neutrophils # (Auto) 3.0 x10^3uL (1.8-7.7) Lymphocytes # (Auto) 1.0 x10^3/uL (1.0-4.8) Monocytes # (Auto) 0.4 x10^3/uL (0.0-1.1) Eosinophils # (Auto) 0.4 x10^3/uL (0.0-0.7) Basophils # (Auto) 0.1 x10^3/uL (0.0-0.2) Prothrombin Time 14.5 SEC (11.7-14.0) H Prothrombin Time INR 1.2 (0.8-1.1) H PTT 41 SEC (24-38) H Sodium Level 132 mmol/L (136-145) L Potassium Level 2.5 mmol/L (3.5-5.1) *L Chloride Level 102 mmol/L (98-107) Carbon Dioxide Level 25 mmol/L (21-32) Anion Gap 5 (6-14) L Blood Urea Nitrogen 12 mg/dL (7-20) Creatinine 0.6 mg/dL (0.6-1.0) Estimated GFR (Cockcroft-Gault) 122.2 Glucose Level 93 mg/dL (70-99) Calcium Level 7.9 mg/dL (8.5-10.1) L Magnesium Level 1.2 mg/dL (1.8-2.4) L Total Bilirubin 0.2 mg/dL (0.2-1.0) Direct Bilirubin 0.1 mg/dL (0.0-0.2) Aspartate Amino Transferase (AST) 13 U/L (15-37) L Alanine Aminotransferase (ALT) 14 U/L (14-59) Alkaline Phosphatase 130 U/L (46-116) H Troponin I Quantitative < 0.017 ng/mL (0.000-0.055) Total Protein 7.2 g/dL (6.4-8.2) Albumin 2.1 g/dL (3.4-5.0) L Lipase 432 U/L (73-393) H Stool Occult Blood Negative (NEG) Laboratory Tests 06/30/18 10:15 Laboratory Tests 06/30/18 10:15 EKG EKG []EKG reviewed by myself shows sinus rhythm with mildly elevated heart rate at [address] segments congruent. Not suggestive of ACS. Radiology/Procedures Radiology/Procedures [] Course & Med Decision Making Course & Med Decision Making Pertinent Labs and Imaging studies reviewed. (See chart for details) [] Dragon Disclaimer Dragon Disclaimer This electronic medical record was generated, in whole or in part, using a voice recognition dictation system. Departure Departure Impression: Primary Impression: UTI (urinary tract infection) Additional Impressions: Low magnesium level Low serum potassium Disposition: ADMITTED INPATIENT Admitting Physician: Roderick Cisneros Condition: STABLE Referrals: RODERICK CISNEROS MD (PCP) Problem Qualifiers DYLAN GREGG MD Jun 30, 2018 10:26
[2018-06-30] MEDS ORDERED: PIPERACILLIN/TAZOBACTAM 3.375 GM in IV NORMAL SALINE 50ML 50 ML IV ONE (10:30)
[2018-06-30] MEDS ORDERED: PIP/TAZO PER PHARMACY MC PRN (10:30)
[2018-06-30] MEDS ORDERED: IV NORMAL SALINE 500ML BAG 500 ML IV ONE (10:30)
[2018-06-30 10:42] LABS: BASO # 0.1 x10^3/uL (0.0-0.2); BASO % 1 % (0-3); EOS # 0.4 x10^3/uL (0.0-0.7); EOS % 7 % (0-3); HEMATOCRIT 23.2 % (36.0-47.0); HEMOGLOBIN 7.7 g/dL (12.0-15.5); LYMPH % 21 % (24-48); MEAN CORPUSCULAR HEMOGLOBIN 26 pg (25-35); MEAN CORPUSCULAR HGB CONC 33 g/dL (31-37); MEAN CORPUSCULAR VOLUME 78 fL (79-100); MONO # 0.4 x10^3/uL (0.0-1.1); MONO % 9 % (0-9); NEUT % 62 % (31-73); PLATELET COUNT 213 x10^3/uL (140-400); RED BLOOD COUNT 2.96 x10^6/uL (3.50-5.40); RED CELL DISTRIBUTION WIDTH 17.5 % (11.5-14.5); WHITE BLOOD COUNT 4.9 x10^3/uL (4.0-11.0)
[2018-06-30] MEDS ORDERED: fentaNYL PF VIAL 100 MCG/2 ML VIAL IV PRN (10:45)
[2018-06-30 10:50] LABS: ALBUMIN 2.1 g/dL (3.4-5.0); CALCIUM 7.9 mg/dL (8.5-10.1); CREATININE 0.6 mg/dL (0.6-1.0); DIRECT BILIRUBIN 0.1 mg/dL (0.0-0.2); GFR 122.2; TOTAL BILIRUBIN 0.2 mg/dL (0.2-1.0); TOTAL PROTEIN 7.2 g/dL (6.4-8.2)
[2018-06-30 10:52] LABS: FECAL OB PT NEGATIVE (NEG)
[2018-06-30 10:53] LABS: PROTHROMBIN TIME PATIENT 14.5 SEC (11.7-14.0)
[2018-06-30 10:54] LABS: POTASSIUM 2.5 mmol/L (3.5-5.1)
--- NOTE | 2018-06-30 10:59 | RAD ---
CT of the abdomen and pelvis without contrast 06/30/2018 INDICATION: Low hemoglobin. COMPARISON STUDY: CT of the abdomen and pelvis without contrast June 16, 2018 FINDINGS: Lung bases demonstrate no acute abnormality. Solid viscera of the abdomen are grossly unremarkable. Extensive postsurgical changes to the bowel again noted. Evaluation of the bowel is significantly limited without IV or oral contrast. No significant free fluid or hemoperitoneum is identified. No gross pneumoperitoneum is identified. Relative decreased attenuation of the aortic lumen with respect to the wall is seen, finding associated with significant anemia. No acute osseous changes are identified. IMPRESSION: 1. No definitive acute intra-abdominal abnormality is identified 2. Relative low-density of the aortic lumen with respect to its wall and a noncontrast enhanced exam is a finding associated with significant anemia. CT DOSING PQRS STATEMENT: One or more of the following individualized dose reduction techniques were utilized for this examination: 1. Automated exposure control 2. Adjustment of the mA and/or kV according to patient size 3. Use of iterative reconstruction technique Electronically signed by: Efren Dubon MD (06/30/2018 10:55 AM) [id number]
[2018-06-30] MEDS ORDERED: POTASSIUM CL 40MEQ IN 0.9%NACL 1,000 ML IV ONE (11:00)
--- NOTE | 2018-06-30 11:39 | EKG ---
[facility] [address] [place] [address] Test Date: 2018-06-30 Test Time: 09:48:44 Pat Name: HERMAN MONCADA Department: Room: Gender: F [place]: : 1955 Requested By: DYLAN GREGG Order Number: [id number] Reading MD: Naga Nicholas Measurements Intervals [place] Rate: 97 P: 28 PA: 156 QRS: 43 QRSD: 76 T: 51 QT: 334 QTc: 428 Interpretive Statements SINUS RHYTHM QRS(T) CONTOUR ABNORMALITY CONSISTENT WITH SEPTAL INFARCT PROBABLY OLD ABNORMAL ECG Electronically Signed On 07-13-2018 14:33:56 [employer] by Naga Nicholas
[2018-06-30] MEDS ORDERED: IV NORMAL SALINE 1000ML BAG 1,000 ML IV SCH (11:45)
[2018-06-30] MEDS ORDERED: MAGNESIUM SULFATE 2GM 50 ML IV ONE (11:45)
--- NOTE | 2018-06-30 12:29 | PDOC ---
Provider Note Provider Note history and physical dictated # [id number] BENITA LUTZ MD Jun 30, 2018 12:29
[2018-06-30] MEDS ORDERED: POTASSIUM CL 40MEQ IN 0.9%NACL 1,000 ML IV SCH (12:30)
[2018-06-30] MEDS ORDERED: ACETAMINOPHEN 325 MG TABLET. PO PRN (12:30)
[2018-06-30] MEDS ORDERED: traZODone 50 MG TABLET. PO PRN (12:30)
[2018-06-30] MEDS ORDERED: MAGNESIUM SULFATE 4GM 100 ML IV ONE (13:00)
--- NOTE | 2018-06-30 13:10 | HP ---
ADMIT DATE: 06/30/2018 LOCATION: She is in room 672. HISTORY OF PRESENT ILLNESS: The patient is a 63-year-old female with a history of enterocutaneous fistula and enterovesical fistula maintained on home total parenteral nutrition. I received a phone call from the lab that her hemoglobin at home was 5.7, so she was directed to the [facility] Emergency Room with a hemoglobin of 7.7; however, her potassium was quite low at 2.5. Her magnesium was severely low at 1.2, prompting admission to the hospital for severe hypokalemia and severe hypomagnesemia, most likely related from her enterocutaneous fistula. She denies ever having any black or bloody stools. She denies any increased abdominal pain. She does have abdominal pain secondary to chronic adhesions from her previous surgery. She is therefore admitted for further evaluation of her severe hypokalemia and hypomagnesemia and treatment. ALLERGIES AND INTOLERANCES: INCLUDE ORAL AND IV DYE, ADHESIVE TAPE, CODEINE, SILVER, AND VANCOMYCIN. MEDICATIONS: Prior to admission include her TPN. She is also on Dilaudid 2 mg p.o. q.i.d. p.r.n., amlodipine 5 mg every day, lidocaine 5% followed by zinc oxide 20% applied to the abdominal wall excoriated area b.i.d., lorazepam 0.5 mg p.o. every 6 hours p.r.n. and also Protonix 40 mg every day p.r.n., sertraline 50 mg every day, trazodone 50 mg at bedtime p.r.n., Tylenol 325 mg 1-2 every 6 hours p.r.n., Zofran 4 mg every 6 hours p.r.n. and the TPN was at 85 mL an hour. PAST MEDICAL HISTORY: Significant for enterocutaneous fistula and enterovesical fistula. Moderate protein calorie malnutrition, chronic abdominal pain due to adhesions, anemia of chronic disease, hypertension and she also had acute kidney injury secondary to dehydration from increased output from her enterocutaneous fistula and was dismissed about a week ago. She had some nausea and vomiting prior to that admission. She also has had a history of reflux esophagitis, depression, diverticulosis, esophagitis and gastritis in 2011, peptic ulcer disease in the past and recurrent sepsis due to her PICC line, five abdominal procedures to reverse her enterocutaneous fistula, all of which have failed. SOCIAL HISTORY: She does not drink alcohol nor does she smoke cigarettes. FAMILY HISTORY: Noncontributory. REVIEW OF SYSTEMS: GENERAL: There has been no fever, chills or sweats in the last 3 days. CARDIOVASCULAR: No chest pain. PULMONARY: No cough or shortness of breath. GASTROINTESTINAL: Denies any black or bloody stools. ENDOCRINE: No diabetes mellitus. SKIN: No rashes. She had got an excoriated abdomen from her enterocutaneous fistula and the rest of systems reviewed are negative except as stated in history of present illness. PHYSICAL EXAMINATION: VITAL SIGNS: Temperature is 98.5 degrees, pulse is 84, respiratory rate 20, blood pressure 117/62, oxygen saturation 99% on room air. HEENT: Eyes: Gaze is conjugate. Mouth: Tongue is midline. NECK: There is no cervical lymphadenopathy or thyroid enlargement. HEART: Reveals an S1, S2. There is no S3 or murmur. LUNGS: Clear. CHEST: She has got a PICC line below the right clavicle. ABDOMEN: Soft. She had enterocutaneous fistula, some excoriation of the abdominal wall she has had before from the contents of the enterocutaneous fistula. LOWER EXTREMITIES: Without pretibial edema. SKIN: No rashes. NEUROLOGIC: Revealed no focal weakness of the extremities or facial asymmetry. LABORATORY DATA: Review of her laboratory tests, white count 4.9, hemoglobin 7.7, platelet count 213,000, 63 polys and 21 lymphocytes. Looking at her hemoglobin on 06/24/2018 was 8.3; on 06/19/2018, it was 10.0, but she was again dehydrated and that was after hydration. If we look at back on 04/18/2018, hemoglobin was 8.4. Platelet count I mentioned is 213, 63 polys, 21 lymphocytes. INR 1.2 with a PTT of 41 and serum sodium is low at 132, potassium was low at 2.5, chloride 102, total CO2 was 25, BUN 12, creatinine 0.6, calcium of 7.9, magnesium level 1.2 and her liver function tests were okay. Troponin level was less than 0.017. Albumin 2.1 with a lipase of 432. Urinalysis showed a large amount of leukocyte esterase, too numerous to count white cells, but again, she has an enterovesical fistula, so she will always have pyuria. Her stool was heme negative. I did not see a chest x-ray being done. Electrocardiogram showed normal sinus rhythm with no acute abnormality. She had a CAT scan of the abdomen and pelvis done, which showed no acute abnormality. ASSESSMENT: 1. Severe hypokalemia. 2. Severe hypomagnesemia. 3. Mild hyponatremia. 4. Anemia of chronic disease. 5. Enterocutaneous fistula. 6. Enterovesical fistula. 7. Severe protein calorie malnutrition. 8. Hypertension. 9. Chronic abdominal pain secondary to previous adhesions. PLAN: Suspect the hypokalemia and hypomagnesemia secondary to the enterocutaneous fistula and we will give her some IV potassium chloride and IV magnesium. We will increase the magnesium and potassium in her TPN and I will speak with the pharmacist. Repeat her labs again tomorrow. Continue with her home medications. BENITA LUTZ MD DR: NABILA/jd JOB#: [id number] / [id number]
[2018-06-30] MEDS: POTASSIUM CHL 20MEQ PREMIX 50 ML IV SCH ×2 (13:48→18:16)
--- NOTE | 2018-06-30 14:25 | RAD ---
Single view of the chest. 06/30/2018 12:29 PM Indication: Hypertension Comparison: Chest radiograph June 17, 2018 Findings: There is a right internal jugular power line with tip at cavoatrial junction. No pneumothorax is seen. No pleural effusion is identified. Heart size is normal. Mild aortic calcification is noted. No focal consolidative infiltrate is seen. Mild interstitial coarsening similar to comparison exam. No acute osseous changes are identified. IMPRESSION: Stable radiographic appearance of the chest without evidence of acute cardiopulmonary process. Electronically signed by: Efren Dubon MD (06/30/2018 2:20 PM) [facility]
[2018-06-30] MEDS: HYDROmorphone 2 MG/ML VIAL IVP PRN ×2 (14:33→23:17)
[2018-06-30 15:00] VITALS: BP 105/62
--- NOTE | 2018-06-30 15:22 | PDOC ---
Subjective: Subjective: Please see previous GI consults including most recently from 06/17/18. On this occasion, sent to [facility] w/ concerns of lower Hgb than normal. Seems to average between 8-10 range - today was 7.7. Fecal occult was negative. Chronic GI issues are stable - has been tolerating some PO (cottage cheese), abd pain is stable, and fistula drainage is stable. Has had some diarrhea. Denies recent atbx. Objective: Vital Signs: Vital Signs Date Time Temp Pulse Resp B/P (MAP) Pulse Ox O2 Delivery O2 Flow Rate FiO2 06/30/18 14:33 18 Room Air 06/30/18 12:45 82 109/77 (88) 100 06/30/18 09:48 98.5 98.5 Labs: Laboratory Tests Test 06/30/18 09:37 06/30/18 10:15 06/30/18 10:20 Urine Collection Type Unknown Urine Color Yellow Urine Clarity Cloudy Urine pH 6.0 Urine Specific [place] 1.015 Urine Protein 100 mg/dL Urine Glucose (UA) Negative mg/dL Urine Ketones (Stick) Negative mg/dL Urine Blood Moderate Urine Nitrite Negative Urine Bilirubin Negative Urine Urobilinogen Dipstick 1.0 mg/dL Urine Leukocyte Esterase Large Urine RBC 0 /HPF Urine WBC Tntc /HPF Urine Squamous Epithelial Cells Many /LPF Urine Bacteria Many /HPF White Blood Count 4.9 x10^3/uL Red Blood Count 2.96 x10^6/uL Hemoglobin 7.7 g/dL Hematocrit 23.2 % Mean Corpuscular Volume 78 fL Mean Corpuscular Hemoglobin 26 pg Mean Corpuscular Hemoglobin Concent 33 g/dL Red Cell Distribution Width 17.5 % Platelet Count 213 x10^3/uL Neutrophils (%) (Auto) 62 % Lymphocytes (%) (Auto) 21 % Monocytes (%) (Auto) 9 % Eosinophils (%) (Auto) 7 % Basophils (%) (Auto) 1 % Neutrophils # (Auto) 3.0 x10^3uL Lymphocytes # (Auto) 1.0 x10^3/uL Monocytes # (Auto) 0.4 x10^3/uL Eosinophils # (Auto) 0.4 x10^3/uL Basophils # (Auto) 0.1 x10^3/uL Prothrombin Time 14.5 SEC Prothromb Time International Ratio 1.2 Activated Partial Thromboplast Time 41 SEC Sodium Level 132 mmol/L Potassium Level 2.5 mmol/L Chloride Level 102 mmol/L Carbon Dioxide Level 25 mmol/L Anion Gap 5 Blood Urea Nitrogen 12 mg/dL Creatinine 0.6 mg/dL Estimated GFR (Cockcroft-Gault) 122.2 Glucose Level 93 mg/dL Calcium Level 7.9 mg/dL Magnesium Level 1.2 mg/dL Total Bilirubin 0.2 mg/dL Direct Bilirubin 0.1 mg/dL Aspartate Amino Transf (AST/SGOT) 13 U/L Alanine Aminotransferase (ALT/SGPT) 14 U/L Alkaline Phosphatase 130 U/L Troponin I Quantitative < 0.017 ng/mL Total Protein 7.2 g/dL Albumin 2.1 g/dL Lipase 432 U/L Stool Occult Blood Negative Imaging: CXR IMPRESSION: Stable radiographic appearance of the chest without evidence of acute cardiopulmonary process. CT A/P IMPRESSION: 1. No definitive acute intra-abdominal abnormality is identified 2. Relative low-density of the aortic lumen with respect to its wall and a noncontrast enhanced exam is a finding associated with significant anemia. PE: GEN: NAD LUNGS: CTAB HEART: RRR ABD: BS+, chronic fistulae NEURO/PSYCH: A & O �3 A/P: Chronic anemia - Hgb slightly below average, fecal occult neg. Diarrhea Hyponatremia, hypokalemia, hypomagnesemia, hypocalcemia H/o diverticular disease w/ fistulae and multiple surgeries Chronic abd pain w/ n/v on TPN CRC screen - UTD S/p cholecystectomy -- No obvious bleeding - supportive care, monitor labs and diarrhea. MIESHA RICO Jun 30, 2018 15:22
[2018-06-30] MEDS ORDERED: PIPERACILLIN/TAZOBACTAM 3.375 GM in IV NORMAL SALINE 50ML 50 ML IV SCH (18:00)
[2018-06-30 19:00] VITALS: BP 107/54
[2018-06-30] MEDS: POTASSIUM CHLORIDE 40 MEQ in IV DEXTROSE 5% - 0.9 % NACL 1,000 ML IV SCH ×2 (19:50→20:44)
[2018-06-30] MEDS: ZINC OXIDE 20% TOPICAL OINTMENT 28GM TUBE. TP SCH (20:41)
[2018-06-30] MEDS: LIDOCAINE 2% TOPICAL JELLY 30GM TUBE. TP SCH (20:41)
[2018-06-30 23:00] VITALS: BP 108/63
[2018-07-01 03:11] VITALS: BP 120/63
[2018-07-01 05:48] LABS: BASO # 0.1 x10^3/uL (0.0-0.2); BASO % 2 % (0-3); EOS # 0.4 x10^3/uL (0.0-0.7); EOS % 11 % (0-3); HEMATOCRIT 23.7 % (36.0-47.0); HEMOGLOBIN 7.6 g/dL (12.0-15.5); LYMPH # 0.7 x10^3/uL (1.0-4.8); LYMPH % 19 % (24-48); MEAN CORPUSCULAR HEMOGLOBIN 25 pg (25-35); MEAN CORPUSCULAR HGB CONC 32 g/dL (31-37); MEAN CORPUSCULAR VOLUME 79 fL (79-100); MONO # 0.3 x10^3/uL (0.0-1.1); MONO % 7 % (0-9); NEUT # 2.3 x10^3uL (1.8-7.7); NEUT % 62 % (31-73); PLATELET COUNT 213 x10^3/uL (140-400); RED BLOOD COUNT 2.99 x10^6/uL (3.50-5.40); RED CELL DISTRIBUTION WIDTH 17.6 % (11.5-14.5); WHITE BLOOD COUNT 3.7 x10^3/uL (4.0-11.0)
[2018-07-01] MEDS: HYDROmorphone 2 MG/ML VIAL IVP PRN ×4 (05:48→19:47)
[2018-07-01 06:07] LABS: CALCIUM 7.7 mg/dL (8.5-10.1); CREATININE 0.6 mg/dL (0.6-1.0); GFR 122.2; MAGNESIUM 2.6 mg/dL (1.8-2.4); POTASSIUM 3.6 mmol/L (3.5-5.1)
[2018-07-01 07:00] VITALS: BP 110/47
[2018-07-01] MEDS: SERTRALINE 50 MG TABLET. PO SCH (08:35)
[2018-07-01] MEDS: ZINC OXIDE 20% TOPICAL OINTMENT 28GM TUBE. TP SCH ×2 (08:35→19:51)
[2018-07-01] MEDS: LIDOCAINE 2% TOPICAL JELLY 30GM TUBE. TP SCH ×2 (08:36→19:51)
[2018-07-01] MEDS ORDERED: amLODIPine BESYLATE 5 MG TABLET PO SCH (09:00)
--- NOTE | 2018-07-01 09:29 | NUR ---
SW following pt for anticipated dc needs. Pt is current with [facility], phone: [phone], fax: [phone] and [facility] for TPN, phone: [phone], fax: [phone]. Clinicals and orders can be faxed for [facility] and [facility] when pt is ready to dc. SW will continue to follow.
[2018-07-01] MEDS: POTASSIUM CHLORIDE 40 MEQ in IV DEXTROSE 5% - 0.9 % NACL 1,000 ML IV SCH (10:43)
[2018-07-01 11:00] VITALS: BP 132/69
--- NOTE | 2018-07-01 11:19 | PDOC ---
PROGRESS NOTES Subjective Subjective feels better. notes intermittent increased EC fistula output. lab reviewed. potassium and magnesium normal. hydration status good,. systolic bp on low side and will d/c amlodipine. no leg swelling. Objective Objective Vital Signs Date Time Temp Pulse Resp B/P (MAP) Pulse Ox O2 Delivery O2 Flow Rate FiO2 07/01/18 08:35 111/65 07/01/18 07:51 Room Air 07/01/18 07:00 69 18 100 07/01/18 03:11 97.6 97.6 Intake and Output 07/01/18 07:01 Intake Total 500 ml Balance 500 ml Intake Oral 200 ml Other 300 ml Physical Exam Abdomen: Soft, Other (EC fistula) Heart: Regular rate, Normal S1, Normal S2 Extremities: No edema General: Alert HEENT: Atraumatic Lungs: Clear to auscultation Neuro: Normal speech Psych/Mental Status: Mental status NL Skin: No rashes Assessment Assessment Problems1. Severe hypokalemia. resolved 2. Severe hypomagnesemia. resolved 3. Mild hyponatremia. resolved 4. Anemia of chronic disease. 5. Enterocutaneous fistula. 6. Enterovesical fistula. 7. Severe protein calorie malnutrition. 8. Hypertension.BP on low side of normal 9. Chronic abdominal pain secondary to adhesions Medical Problems: (1) Low magnesium level Status: Acute (2) Low serum potassium Status: Acute Plan Plan of Care spoke with pharmacist and ordered TPN. increased kcl 120 meq/day and magnesium sulfate to 28 meq/day. daily labs d/c amlodipine d/c iv fluids when TPN started Comment Review of Relevant I have reviewed the following items lucila (where applicable) has been applied. Labs Laboratory Tests Test 06/30/18 09:37 06/30/18 10:15 06/30/18 10:20 07/01/18 05:33 Urine Collection Type Unknown Urine Color Yellow Urine Clarity Cloudy Urine pH 6.0 Urine Specific [place] 1.015 Urine Protein 100 mg/dL (NEG-TRACE) Urine Glucose (UA) Negative mg/dL (NEG) Urine Ketones (Stick) Negative mg/dL (NEG) Urine Blood Moderate (NEG) Urine Nitrite Negative (NEG) Urine Bilirubin Negative (NEG) Urine Urobilinogen Dipstick 1.0 mg/dL (0.2 mg/dL) Urine Leukocyte Esterase Large (NEG) Urine RBC 0 /HPF (0-2) Urine WBC Tntc /HPF (0-4) Urine Squamous Epithelial Cells Many /LPF Urine Bacteria Many /HPF (0-FEW) White Blood Count 4.9 x10^3/uL (4.0-11.0) 3.7 x10^3/uL (4.0-11.0) Red Blood Count 2.96 x10^6/uL (3.50-5.40) 2.99 x10^6/uL (3.50-5.40) Hemoglobin 7.7 g/dL (12.0-15.5) 7.6 g/dL (12.0-15.5) Hematocrit 23.2 % (36.0-47.0) 23.7 % (36.0-47.0) Mean Corpuscular Volume 78 fL (79-100) 79 fL (79-100) Mean Corpuscular Hemoglobin 26 pg (25-35) 25 pg (25-35) Mean Corpuscular Hemoglobin Concent 33 g/dL (31-37) 32 g/dL (31-37) Red Cell Distribution Width 17.5 % (11.5-14.5) 17.6 % (11.5-14.5) Platelet Count 213 x10^3/uL (140-400) 213 x10^3/uL (140-400) Neutrophils (%) (Auto) 62 % (31-73) 62 % (31-73) Lymphocytes (%) (Auto) 21 % (24-48) 19 % (24-48) Monocytes (%) (Auto) 9 % (0-9) 7 % (0-9) Eosinophils (%) (Auto) 7 % (0-3) 11 % (0-3) Basophils (%) (Auto) 1 % (0-3) 2 % (0-3) Neutrophils # (Auto) 3.0 x10^3uL (1.8-7.7) 2.3 x10^3uL (1.8-7.7) Lymphocytes # (Auto) 1.0 x10^3/uL (1.0-4.8) 0.7 x10^3/uL (1.0-4.8) Monocytes # (Auto) 0.4 x10^3/uL (0.0-1.1) 0.3 x10^3/uL (0.0-1.1) Eosinophils # (Auto) 0.4 x10^3/uL (0.0-0.7) 0.4 x10^3/uL (0.0-0.7) Basophils # (Auto) 0.1 x10^3/uL (0.0-0.2) 0.1 x10^3/uL (0.0-0.2) Prothrombin Time 14.5 SEC (11.7-14.0) Prothromb Time International Ratio 1.2 (0.8-1.1) Activated Partial Thromboplast Time 41 SEC (24-38) Sodium Level 132 mmol/L (136-145) 138 mmol/L (136-145) Potassium Level 2.5 mmol/L (3.5-5.1) 3.6 mmol/L (3.5-5.1) Chloride Level 102 mmol/L (98-107) 108 mmol/L (98-107) Carbon Dioxide Level 25 mmol/L (21-32) 24 mmol/L (21-32) Anion Gap 5 (6-14) 6 (6-14) Blood Urea Nitrogen 12 mg/dL (7-20) 9 mg/dL (7-20) Creatinine 0.6 mg/dL (0.6-1.0) 0.6 mg/dL (0.6-1.0) Estimated GFR (Cockcroft-Gault) 122.2 122.2 Glucose Level 93 mg/dL (70-99) 99 mg/dL (70-99) Calcium Level 7.9 mg/dL (8.5-10.1) 7.7 mg/dL (8.5-10.1) Magnesium Level 1.2 mg/dL (1.8-2.4) 2.6 mg/dL (1.8-2.4) Total Bilirubin 0.2 mg/dL (0.2-1.0) Direct Bilirubin 0.1 mg/dL (0.0-0.2) Aspartate Amino Transf (AST/SGOT) 13 U/L (15-37) Alanine Aminotransferase (ALT/SGPT) 14 U/L (14-59) Alkaline Phosphatase 130 U/L (46-116) Troponin I Quantitative < 0.017 ng/mL (0.000-0.055) Total Protein 7.2 g/dL (6.4-8.2) Albumin 2.1 g/dL (3.4-5.0) Lipase 432 U/L (73-393) Stool Occult Blood Negative (NEG) Laboratory Tests Test 07/01/18 05:33 White Blood Count 3.7 x10^3/uL (4.0-11.0) Red Blood Count 2.99 x10^6/uL (3.50-5.40) Hemoglobin 7.6 g/dL (12.0-15.5) Hematocrit 23.7 % (36.0-47.0) Mean Corpuscular Volume 79 fL (79-100) Mean Corpuscular Hemoglobin 25 pg (25-35) Mean Corpuscular Hemoglobin Concent 32 g/dL (31-37) Red Cell Distribution Width 17.6 % (11.5-14.5) Platelet Count 213 x10^3/uL (140-400) Neutrophils (%) (Auto) 62 % (31-73) Lymphocytes (%) (Auto) 19 % (24-48) Monocytes (%) (Auto) 7 % (0-9) Eosinophils (%) (Auto) 11 % (0-3) Basophils (%) (Auto) 2 % (0-3) Neutrophils # (Auto) 2.3 x10^3uL (1.8-7.7) Lymphocytes # (Auto) 0.7 x10^3/uL (1.0-4.8) Monocytes # (Auto) 0.3 x10^3/uL (0.0-1.1) Eosinophils # (Auto) 0.4 x10^3/uL (0.0-0.7) Basophils # (Auto) 0.1 x10^3/uL (0.0-0.2) Sodium Level 138 mmol/L (136-145) Potassium Level 3.6 mmol/L (3.5-5.1) Chloride Level 108 mmol/L (98-107) Carbon Dioxide Level 24 mmol/L (21-32) Anion Gap 6 (6-14) Blood Urea Nitrogen 9 mg/dL (7-20) Creatinine 0.6 mg/dL (0.6-1.0) Estimated GFR (Cockcroft-Gault) 122.2 Glucose Level 99 mg/dL (70-99) Calcium Level 7.7 mg/dL (8.5-10.1) Magnesium Level 2.6 mg/dL (1.8-2.4) Medications Current Medications Piperacillin Sod/ Tazobactam Sod (Zosyn Per Pharmacy) 1 each PRN DAILY PRN MC SEE COMMENTS; Start 06/30/18 at 10:30; Stop 06/30/18 at 12:46; Status DC Piperacillin Sod/ Tazobactam Sod 3.375 gm/Sodium Chloride 50 ml @ 100 mls/hr ONCE ONCE IV Last administered on 06/30/18at 11:03; Start 06/30/18 at 10:30; Stop 06/30/18 at 10:59; Status DC Sodium Chloride 500 ml @ 500 mls/hr 1X ONCE IV ; Start 06/30/18 at 10:30; Stop 06/30/18 at 10:55; Status DC Fentanyl Citrate (Fentanyl 2ml Vial) 25 mcg 1X PRN PRN IV SEVERE PAIN Last administered on 06/30/18at 10:56; Start 06/30/18 at 10:45 Potassium Chloride/Sodium Chloride 1,000 ml @ 75 mls/hr 1X ONCE IV Last administered on 06/30/18at 11:03; Start 06/30/18 at 11:00; Stop 07/01/18 at 00:19 ; Status DC Magnesium Sulfate 50 ml @ 25 mls/hr 1X ONCE IV Last administered on 06/30/18at 20:41; Start 06/30/18 at 11:45; Stop 06/30/18 at 13:44; Status DC Sodium Chloride 1,000 ml @ 100 mls/hr Q10H IV ; Start 06/30/18 at 11:45; Stop 06/30/18 at 11:46; Status DC Piperacillin Sod/ Tazobactam Sod 3.375 gm/Sodium Chloride 50 ml @ 100 mls/hr Q6HRS IV ; Start 06/30/18 at 18:00; Stop 06/30/18 at 18:00; Status DC Magnesium Sulfate/ Dextrose 100 ml @ 25 mls/hr 1X ONCE IV Last administered on 06/30/18at 13:47; Start 06/30/18 at 13:00; Stop 06/30/18 at 16:59; Status DC Potassium Chloride/Sodium Chloride 1,000 ml @ 75 mls/hr [id number] IV ; Start at 12:30; Status UNV Potassium Chloride/Water 50 ml @ 50 mls/hr Q1H IV Last administered on at 18:16; Start 06/30/18 at 13:00; Stop 06/30/18 at 14:59; Status DC Hydromorphone HCl (Dilaudid) 2 mg PRN Q4HRS PRN IVP PAIN MILD TO MOD Last administered on 06/30/18at 23:17; Start 06/30/18 at 12:30 Hydromorphone HCl (Dilaudid) 4 mg PRN Q4HRS PRN IVP PAIN SEVERE Last administered on 07/01/18at 05:48; Start 06/30/18 at 12:30 Ondansetron HCl (Zofran) 4 mg PRN Q6HRS PRN IV NAUSEA/VOMITING; Start 06/30/18 at 12:30 Amlodipine Besylate (Norvasc) 5 mg DAILY PO Last administered on 07/01/18at 08: 35; Start 07/01/18 at 09:00 Trazodone HCl (Desyrel) 50 mg PRN QHS PRN PO INSOMNIA; Start 06/30/18 at 12:30 Sertraline HCl (Zoloft) 50 mg DAILY PO Last administered on 07/01/18at 08:35; Start 07/01/18 at 09:00 Zinc Oxide (Zinc Oxide 20% Topical) 1 sang BID TP Last administered on at 08:35; Start 06/30/18 at 21:00 Lorazepam (Ativan) 0.5 mg PRN Q6HRS PRN PO ANXIETY / AGITATION; Start 06/30/18 at 12:30 Acetaminophen (Tylenol) 650 mg PRN Q6HRS PRN PO MILD PAIN / TEMP; Start at 12:30 Potassium Chloride 40 meq/ Dextrose/Sodium Chloride 1,020 ml @ 75 mls/hr [id number] IV Last administered on 07/01/18at 10:43; Start 06/30/18 at 14:00 Lidocaine HCl (Xylocaine 2% Topical 30gm Tube) 1 sang BID TP Last administered on 07/01/18at 08:36; Start 06/30/18 at 21:00 Active Scripts Active Ambien (Zolpidem Tartrate) 5 Mg Tablet 5 Mg PO PRN QHS PRN 30 Days [Tpn Per Pharmacy] 1 EACH Each 1 Each MC PRN DAILY PRN TPN at 85cc/hour [Pantoprazole] 40 MG Tablet.dr 40 Mg PO DAILYAC Amlodipine Besylate 10 Mg Tablet 5 Mg PO DAILY Tylenol (Acetaminophen) 325 Mg Tablet 650 Mg PO PRN Q6HRS PRN 30 Days Sertraline Hcl 50 Mg Tablet 50 Mg PO DAILY 30 Days Lidocaine 35.44 Gm Oint...g. 1 Sang TP BID Reported Zofran Odt (Ondansetron) 4 Mg Tab.rapdis 1 Tab SL PRN Q8HRS PRN Zinc Oxide 56.7 Gm Oint...g. 56.7 Gm TP PRN BID Dilaudid (Hydromorphone Hcl) 2 Mg Tablet 1 Tab PO PRN QID PRN Lorazepam 0.5 Mg Tablet 0.5 Mg PO Q6HRS PRN Vitals/I & O Vital Sign - Last 24 Hours 06/30/18 06/30/18 06/30/18 06/30/18 11:45 12:45 14:33 15:00 Temp 97.9 97.9 Pulse 86 82 85 Resp 20 20 18 18 B/P (MAP) 117/62 (80) 109/77 (88) 105/62 (76) Pulse Ox 100 100 97 O2 Delivery Room Air 06/30/18 06/30/18 06/30/18 07/01/18 19:00 20:15 23:00 03:11 Temp 97.3 97.4 97.6 97.3 97.4 97.6 Pulse 73 74 68 Resp 20 20 20 B/P (MAP) 107/54 (71) 108/63 (78) 120/63 (82) Pulse Ox 100 100 100 O2 Delivery Room Air Room Air Room Air Room Air 07/01/18 07/01/18 07/01/18 07/01/18 05:48 07:00 07:51 08:35 Pulse 69 Resp 18 B/P (MAP) 110/47 (68) 111/65 Pulse Ox 100 O2 Delivery Room Air Room Air Room Air Intake and Output 06/30/18 06/30/18 07/01/18 15:01 23:01 07:01 Intake Total 300 ml 200 ml Balance 300 ml 200 ml BENITA LUTZ MD Jul 01, 2018 11:19
[2018-07-01] MEDS: TPN PER PHARMACY MC PRN ×2 (13:07→19:17)
--- NOTE | 2018-07-01 13:20 | NUR ---
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; GREY PERCHER TPN Height: 5 feet, 4 inches Weight: 53.601949 kg Current diet: GI SOFT LABS: Sodium: 138 Potassium: 3.6 Chloride: 108 Calcium: 7.7 Corrected Calcium: 9.22 Magnesium: 2.6 CO2: 24 SCr: 0.6 Glucose: 99 Albumin: 2.1 AST: 13 ALT: 14 TPN FORMULA: TPN TYPE: Central Continuous AMINO ACIDS: 90 gm DEXTROSE: 275 gm LIPIDS: 35 gm SODIUM CHLORIDE: 200 mEq SODIUM ACETATE: mEq SODIUM PHOSPHATE: 20 mmol POTASSIUM CHLORIDE: 120 mEq POTASSIUM ACETATE: mEq POTASSIUM PHOSPHATE: 6.8 mmol MAGNESIUM: 28 mEq CALCIUM: 10 mEq INSULIN: units MULTIPLE VITAMIN: 10 ml TRACE ELEMENTS: MTE5 1ML ml(s) TPN PLAN: Pt on home TPN for high-output fistulae. Dr. Cisneros restarted home forumula with the following changes: decrease KCl from 180 meq/bag to 120 meq. Decrease magnesium from 36 meq to 28 meq. No other changes, labs in AM, including triglycerides. R: Begin TPN as above. Will monitor electrolytes, glucose, and tolerance to TPN. CICI DURAN RPH, 07/01/18 1320 Addendum: 07/01/18 at 1915 by CICI DURAN RPH PHA DC IVF PER DR CISNEROS
--- NOTE | 2018-07-01 13:33 | PDOC ---
Subjective: Subjective: Feeling pretty good - ate some cottage cheese, going to take a shower later. Says fistula drainage has been the same for years - some days more, some days less. Said she had a couple "volcano explosions" in front of Dr. Cisneros today. Says she likes this hospital. Talks about how she only takes pain meds when she needs them, talks about her daughter's health issues. Then she received a phone call she needed to take. Objective: Objective: No stools charted. No GI concerns per RN. Plans to restart TPN. Vital Signs: Vital Signs Date Time Temp Pulse Resp B/P (MAP) Pulse Ox O2 Delivery O2 Flow Rate FiO2 07/01/18 11:00 97.7 83 18 132/69 (90) 100 Room Air 97.7 Labs: Laboratory Tests Test 07/01/18 05:33 White Blood Count 3.7 x10^3/uL Red Blood Count 2.99 x10^6/uL Hemoglobin 7.6 g/dL Hematocrit 23.7 % Mean Corpuscular Volume 79 fL Mean Corpuscular Hemoglobin 25 pg Mean Corpuscular Hemoglobin Concent 32 g/dL Red Cell Distribution Width 17.6 % Platelet Count 213 x10^3/uL Neutrophils (%) (Auto) 62 % Lymphocytes (%) (Auto) 19 % Monocytes (%) (Auto) 7 % Eosinophils (%) (Auto) 11 % Basophils (%) (Auto) 2 % Neutrophils # (Auto) 2.3 x10^3uL Lymphocytes # (Auto) 0.7 x10^3/uL Monocytes # (Auto) 0.3 x10^3/uL Eosinophils # (Auto) 0.4 x10^3/uL Basophils # (Auto) 0.1 x10^3/uL Sodium Level 138 mmol/L Potassium Level 3.6 mmol/L Chloride Level 108 mmol/L Carbon Dioxide Level 24 mmol/L Anion Gap 6 Blood Urea Nitrogen 9 mg/dL Creatinine 0.6 mg/dL Estimated GFR (Cockcroft-Gault) 122.2 Glucose Level 99 mg/dL Calcium Level 7.7 mg/dL Magnesium Level 2.6 mg/dL PE: GEN: NAD LUNGS: clear HEART: RRR ABD: holding towels in place NEURO/PSYCH: A & O �3 A/P: Chronic anemia - stable H/o diverticular disease w/ fistulae and multiple surgeries Chronic abd pain and n/v on TPN -- Continue same per GI. MIESHA RICO Jul 01, 2018 13:33
[2018-07-01 15:00] VITALS: BP 124/74
[2018-07-01] MEDS: ONDANSETRON PF 4 MG/2 ML VIAL. IV PRN (16:32)
[2018-07-01 19:00] VITALS: BP 127/67
[2018-07-01] MEDS ORDERED: TOTAL PARENTERAL NUTRITION IV SCH ×11 (22:00)
[2018-07-01] MEDS ORDERED: AMINO ACID IV SCH ×11 (22:00)
[2018-07-01] MEDS ORDERED: DEXTROSE 70% IV SCH ×11 (22:00)
[2018-07-01] MEDS ORDERED: [UNRECOGNIZED DRUG - OTHER] IV SCH ×11 (22:00)
[2018-07-01 23:00] VITALS: BP 138/80
[2018-07-02] MEDS: HYDROmorphone 2 MG/ML VIAL IVP PRN ×4 (00:58→20:13)
[2018-07-02 03:00] VITALS: BP 159/87
[2018-07-02] MEDS: diphenhydrAMINE HCL 25 MG CAPSULE PO PRN (05:16)
[2018-07-02 05:42] LABS: BASO # 0.1 x10^3/uL (0.0-0.2); BASO % 1 % (0-3); EOS # 0.2 x10^3/uL (0.0-0.7); EOS % 5 % (0-3); HEMOGLOBIN 8.4 g/dL (12.0-15.5); LYMPH # 0.9 x10^3/uL (1.0-4.8); LYMPH % 19 % (24-48); MEAN CORPUSCULAR HEMOGLOBIN 26 pg (25-35); MEAN CORPUSCULAR HGB CONC 32 g/dL (31-37); MEAN CORPUSCULAR VOLUME 80 fL (79-100); MONO # 0.4 x10^3/uL (0.0-1.1); MONO % 8 % (0-9); NEUT # 3.2 x10^3uL (1.8-7.7); NEUT % 67 % (31-73); PLATELET COUNT 254 x10^3/uL (140-400); RED BLOOD COUNT 3.25 x10^6/uL (3.50-5.40); RED CELL DISTRIBUTION WIDTH 18.4 % (11.5-14.5); WHITE BLOOD COUNT 4.8 x10^3/uL (4.0-11.0)
[2018-07-02 05:58] LABS: CALCIUM 8.7 mg/dL (8.5-10.1); CREATININE 0.6 mg/dL (0.6-1.0); GFR 122.2; MAGNESIUM 2.2 mg/dL (1.8-2.4); POTASSIUM 4.2 mmol/L (3.5-5.1)
[2018-07-02 07:25] VITALS: BP 141/70
[2018-07-02] MEDS: SERTRALINE 50 MG TABLET. PO SCH (08:05)
[2018-07-02] MEDS: ZINC OXIDE 20% TOPICAL OINTMENT 28GM TUBE. TP SCH ×2 (08:17→20:14)
[2018-07-02] MEDS: LIDOCAINE 2% TOPICAL JELLY 30GM TUBE. TP SCH ×2 (08:17→20:14)
--- NOTE | 2018-07-02 11:13 | PDOC ---
IM PROGRESS NOTES- Subjective Subjective Nausea, vomiting and diarrhea are improving. Abdominal pain is improving. She is feeling a little stronger today. Complaining of itching all over her body. Objective Vitals Vital Signs Date Time Temp Pulse Resp B/P (MAP) Pulse Ox O2 Delivery O2 Flow Rate FiO2 07/02/18 08:16 Room Air 07/02/18 07:25 97.5 93 18 141/70 (93) 97 97.5 Input & Output Intake and Output 07/02/18 07:01 Intake Total 1290 ml Balance 1290 ml Intake Oral 440 ml IV Total 850 ml # Voids 6 Physical Exam Physical Exam General appearance - alert, chronically ill appearing, and in no distress and oriented to person, place, and time Mental Status - alert, oriented to person, place, and time, affect appropriate to mood Head - normal Chest - clear to auscultation, no wheezes, rales or rhonchi, symmetric air entry Heart - S1 and S2 normal Abdomen - soft, nontender, nondistended, no masses or organomegaly Neurological - alert and oriented Musculoskeletal - no muscular tenderness noted Extremities - no pedal edema Skin - warm and dry Labs Laboratory Tests Test 07/01/18 05:33 07/02/18 05:20 07/02/18 07:20 White Blood Count 3.7 x10^3/uL (4.0-11.0) 4.8 x10^3/uL (4.0-11.0) Red Blood Count 2.99 x10^6/uL (3.50-5.40) 3.25 x10^6/uL (3.50-5.40) Hemoglobin 7.6 g/dL (12.0-15.5) 8.4 g/dL (12.0-15.5) Hematocrit 23.7 % (36.0-47.0) 26.0 % (36.0-47.0) Mean Corpuscular Volume 79 fL (79-100) 80 fL (79-100) Mean Corpuscular Hemoglobin 25 pg (25-35) 26 pg (25-35) Mean Corpuscular Hemoglobin Concent 32 g/dL (31-37) 32 g/dL (31-37) Red Cell Distribution Width 17.6 % (11.5-14.5) 18.4 % (11.5-14.5) Platelet Count 213 x10^3/uL (140-400) 254 x10^3/uL (140-400) Neutrophils (%) (Auto) 62 % (31-73) 67 % (31-73) Lymphocytes (%) (Auto) 19 % (24-48) 19 % (24-48) Monocytes (%) (Auto) 7 % (0-9) 8 % (0-9) Eosinophils (%) (Auto) 11 % (0-3) 5 % (0-3) Basophils (%) (Auto) 2 % (0-3) 1 % (0-3) Neutrophils # (Auto) 2.3 x10^3uL (1.8-7.7) 3.2 x10^3uL (1.8-7.7) Lymphocytes # (Auto) 0.7 x10^3/uL (1.0-4.8) 0.9 x10^3/uL (1.0-4.8) Monocytes # (Auto) 0.3 x10^3/uL (0.0-1.1) 0.4 x10^3/uL (0.0-1.1) Eosinophils # (Auto) 0.4 x10^3/uL (0.0-0.7) 0.2 x10^3/uL (0.0-0.7) Basophils # (Auto) 0.1 x10^3/uL (0.0-0.2) 0.1 x10^3/uL (0.0-0.2) Sodium Level 138 mmol/L (136-145) 140 mmol/L (136-145) Potassium Level 3.6 mmol/L (3.5-5.1) 4.2 mmol/L (3.5-5.1) Chloride Level 108 mmol/L (98-107) 106 mmol/L (98-107) Carbon Dioxide Level 24 mmol/L (21-32) 25 mmol/L (21-32) Anion Gap 6 (6-14) 9 (6-14) Blood Urea Nitrogen 9 mg/dL (7-20) 11 mg/dL (7-20) Creatinine 0.6 mg/dL (0.6-1.0) 0.6 mg/dL (0.6-1.0) Estimated GFR (Cockcroft-Gault) 122.2 122.2 Glucose Level 99 mg/dL (70-99) 125 mg/dL (70-99) Calcium Level 7.7 mg/dL (8.5-10.1) 8.7 mg/dL (8.5-10.1) Magnesium Level 2.6 mg/dL (1.8-2.4) 2.2 mg/dL (1.8-2.4) Phosphorus Level 3.0 mg/dL (2.6-4.7) Triglycerides Level 67 mg/dL (0-150) Glucose (Fingerstick) 132 mg/dL (70-99) Laboratory Tests Test 07/02/18 05:20 07/02/18 07:20 White Blood Count 4.8 x10^3/uL (4.0-11.0) Red Blood Count 3.25 x10^6/uL (3.50-5.40) Hemoglobin 8.4 g/dL (12.0-15.5) Hematocrit 26.0 % (36.0-47.0) Mean Corpuscular Volume 80 fL (79-100) Mean Corpuscular Hemoglobin 26 pg (25-35) Mean Corpuscular Hemoglobin Concent 32 g/dL (31-37) Red Cell Distribution Width 18.4 % (11.5-14.5) Platelet Count 254 x10^3/uL (140-400) Neutrophils (%) (Auto) 67 % (31-73) Lymphocytes (%) (Auto) 19 % (24-48) Monocytes (%) (Auto) 8 % (0-9) Eosinophils (%) (Auto) 5 % (0-3) Basophils (%) (Auto) 1 % (0-3) Neutrophils # (Auto) 3.2 x10^3uL (1.8-7.7) Lymphocytes # (Auto) 0.9 x10^3/uL (1.0-4.8) Monocytes # (Auto) 0.4 x10^3/uL (0.0-1.1) Eosinophils # (Auto) 0.2 x10^3/uL (0.0-0.7) Basophils # (Auto) 0.1 x10^3/uL (0.0-0.2) Sodium Level 140 mmol/L (136-145) Potassium Level 4.2 mmol/L (3.5-5.1) Chloride Level 106 mmol/L (98-107) Carbon Dioxide Level 25 mmol/L (21-32) Anion Gap 9 (6-14) Blood Urea Nitrogen 11 mg/dL (7-20) Creatinine 0.6 mg/dL (0.6-1.0) Estimated GFR (Cockcroft-Gault) 122.2 Glucose Level 125 mg/dL (70-99) Calcium Level 8.7 mg/dL (8.5-10.1) Phosphorus Level 3.0 mg/dL (2.6-4.7) Magnesium Level 2.2 mg/dL (1.8-2.4) Triglycerides Level 67 mg/dL (0-150) Glucose (Fingerstick) 132 mg/dL (70-99) Meds Current Medications Diphenhydramine HCl (Benadryl) 25 mg PRN Q6HRS PRN PO ITCHING Last administered on 07/02/18at 05:16; Start 07/02/18 at 05:00 Info (Tpn Per Pharmacy) 1 each PRN DAILY PRN MC SEE COMMENTS Last administered on 07/01/18at 19:17; Start 07/01/18 at 13:00 Sodium Chloride 200 meq/Sodium Acetate 20 meq/ Potassium Chloride 120 meq/ Potassium Phosphate 6.8 mmol/Magnesium Sulfate 28 meq/ Calcium Gluconate 10 meq / Multivitamins 10 ml/Chromium/ Copper/Manganese/ Seleni/Zn 1 ml/ Total Parenteral Nutrition/Amino Acids/Dextrose/ Fat Emuls... 2,040 ml @ 85 mls/hr TPN CONT IV Last administered on 07/01/18at 22:33; Start 07/01/18 at 22:00; Stop 07/02/18 at 21:59 Assessment Assessment Assessment Problems1. Severe hypokalemia. resolved 2. Severe hypomagnesemia. resolved 3. Mild hyponatremia. resolved 4. Anemia of chronic disease. 5. Enterocutaneous fistula. 6. Enterovesical fistula. 7. Severe protein calorie malnutrition. 8. Hypertension.BP on low side of normal 9. Chronic abdominal pain secondary to adhesions Medical Problems: (1) Low magnesium level Status: Acute (2) Low serum potassium Status: Acute Plan Plan of Care spoke with pharmacist and ordered TPN. increased kcl 120 meq/day and magnesium sulfate to 28 meq/day. daily labs d/c amlodipine Continue TPN. Pruritus- I have started her on Benadryl. Patient is advised to stop scratching and use lotion topically. Hypokalemia- better. Potassium is 4.2. Hypomagnesemia- better. Magnesium is 2.2. Plan Plan For more details regarding further plans, please refer to the orders. CHRISTOFER BRITO MD Jul 02, 2018 11:12
[2018-07-02 11:30] VITALS: BP 158/84
[2018-07-02] MEDS: TPN PER PHARMACY MC PRN (11:51)
--- NOTE | 2018-07-02 11:51 | NUR ---
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 B:Pertinent PMH: EC FISTULA, ENTEROVESICAL FISTULA; [facility] TPN Current diet: GI SOFT LABS: Sodium: 140 Potassium: 4.2 Chloride: 106 Calcium: 8.7 Corrected Calcium: 10.22 Magnesium: 2.2 CO2: 25 SCr: 0.6 Glucose: 132 Albumin: 2.1 AST: 13 ALT: 14 TPN FORMULA: TPN TYPE: Central Continuous AMINO ACIDS: 90 gm DEXTROSE: 275 gm LIPIDS: 35 gm SODIUM CHLORIDE: 200 mEq SODIUM ACETATE: - mEq SODIUM PHOSPHATE: 20 mmol POTASSIUM CHLORIDE: 120 mEq POTASSIUM ACETATE: - mEq POTASSIUM PHOSPHATE: 6.8 mmol MAGNESIUM: 28 mEq CALCIUM: 10 mEq INSULIN: - units MULTIPLE VITAMIN: 10 ml TRACE ELEMENTS: MTE5 1ML ml(s) TPN PLAN: 07/01 Pt on home TPN for high-output fistulae. Dr. Cisneros restarted home forumula with the following changes: decrease KCl from 180 meq/bag to 120 meq. Decrease magnesium from 36 meq to 28 meq. No other changes, labs in AM, including triglycerides. Also DC IVF. 07/02 LYTES IMPROVED, CONT SAME TPN R: Continue TPN Will monitor electrolytes, glucose, and tolerance to TPN. ROC ROBLES RP, 07/02/18 4517
[2018-07-02 15:17] VITALS: BP 140/70
[2018-07-02 19:20] VITALS: BP 139/79
[2018-07-02] MEDS ORDERED: AMINO ACID IV SCH ×11 (22:00)
[2018-07-02] MEDS ORDERED: TOTAL PARENTERAL NUTRITION IV SCH ×11 (22:00)
[2018-07-02] MEDS ORDERED: [UNRECOGNIZED DRUG - OTHER] IV SCH ×11 (22:00)
[2018-07-02] MEDS ORDERED: DEXTROSE 70% IV SCH ×11 (22:00)
[2018-07-02 23:20] VITALS: BP 149/79
[2018-07-03] VITALS (7 sets, daily range): BP systolic 110–165; BP diastolic 63–93
[2018-07-03] MEDS: HYDROmorphone 2 MG/ML VIAL IVP PRN ×6 (01:24→21:27)
[2018-07-03] MEDS: diphenhydrAMINE HCL 25 MG CAPSULE PO PRN (04:38)
[2018-07-03 05:49] LABS: BASO # 0.1 x10^3/uL (0.0-0.2); BASO % 1 % (0-3); EOS # 0.3 x10^3/uL (0.0-0.7); EOS % 5 % (0-3); HEMATOCRIT 23.5 % (36.0-47.0); HEMOGLOBIN 7.9 g/dL (12.0-15.5); LYMPH # 1.2 x10^3/uL (1.0-4.8); LYMPH % 18 % (24-48); MEAN CORPUSCULAR HEMOGLOBIN 27 pg (25-35); MEAN CORPUSCULAR HGB CONC 33 g/dL (31-37); MEAN CORPUSCULAR VOLUME 80 fL (79-100); MONO # 0.6 x10^3/uL (0.0-1.1); MONO % 9 % (0-9); NEUT # 4.6 x10^3uL (1.8-7.7); NEUT % 67 % (31-73); PLATELET COUNT 258 x10^3/uL (140-400); RED BLOOD COUNT 2.95 x10^6/uL (3.50-5.40); RED CELL DISTRIBUTION WIDTH 18.1 % (11.5-14.5); WHITE BLOOD COUNT 6.8 x10^3/uL (4.0-11.0)
[2018-07-03 06:04] LABS: CREATININE 0.6 mg/dL (0.6-1.0); GFR 122.2; PHOSPHORUS 2.3 mg/dL (2.6-4.7)
[2018-07-03 06:08] LABS: POTASSIUM 5.1 mmol/L (3.5-5.1)
[2018-07-03] MEDS: ZINC OXIDE 20% TOPICAL OINTMENT 28GM TUBE. TP SCH ×2 (09:00→21:28)
[2018-07-03] MEDS: LIDOCAINE 2% TOPICAL JELLY 30GM TUBE. TP SCH ×2 (09:00→21:28)
[2018-07-03] MEDS: SERTRALINE 50 MG TABLET. PO SCH (09:14)
[2018-07-03] MEDS: NYSTATIN TOPICAL POWDER 15GM BOTTLE. TP SCH ×2 (11:00→21:28)
--- NOTE | 2018-07-03 11:29 | PDOC ---
IM PROGRESS NOTES- Subjective Subjective Nausea, vomiting and diarrhea are improving. Abdominal pain is improving. She is feeling a little stronger today. Complaining of itching all over her body. Objective Vitals Vital Signs Date Time Temp Pulse Resp B/P (MAP) Pulse Ox O2 Delivery O2 Flow Rate FiO2 07/03/18 11:10 97.5 78 17 110/63 (79) 100 Room Air 97.5 Input & Output Intake and Output 07/03/18 07:01 Intake Total 1400 ml Balance 1400 ml Intake Oral 1400 ml # Voids 6 # Bowel Movements 2 Physical Exam Physical Exam General appearance - alert, chronically ill appearing, and in no distress and oriented to person, place, and time Mental Status - alert, oriented to person, place, and time, affect appropriate to mood Head - normal Chest - clear to auscultation, no wheezes, rales or rhonchi, symmetric air entry Heart - S1 and S2 normal Abdomen - soft, nontender, nondistended, no masses or organomegaly Neurological - alert and oriented Musculoskeletal - no muscular tenderness noted Extremities - no pedal edema Skin - warm and dry Labs Laboratory Tests Test 07/02/18 05:20 07/02/18 07:20 07/02/18 11:44 07/02/18 17:59 White Blood Count 4.8 x10^3/uL (4.0-11.0) Red Blood Count 3.25 x10^6/uL (3.50-5.40) Hemoglobin 8.4 g/dL (12.0-15.5) Hematocrit 26.0 % (36.0-47.0) Mean Corpuscular Volume 80 fL (79-100) Mean Corpuscular Hemoglobin 26 pg (25-35) Mean Corpuscular Hemoglobin Concent 32 g/dL (31-37) Red Cell Distribution Width 18.4 % (11.5-14.5) Platelet Count 254 x10^3/uL (140-400) Neutrophils (%) (Auto) 67 % (31-73) Lymphocytes (%) (Auto) 19 % (24-48) Monocytes (%) (Auto) 8 % (0-9) Eosinophils (%) (Auto) 5 % (0-3) Basophils (%) (Auto) 1 % (0-3) Neutrophils # (Auto) 3.2 x10^3uL (1.8-7.7) Lymphocytes # (Auto) 0.9 x10^3/uL (1.0-4.8) Monocytes # (Auto) 0.4 x10^3/uL (0.0-1.1) Eosinophils # (Auto) 0.2 x10^3/uL (0.0-0.7) Basophils # (Auto) 0.1 x10^3/uL (0.0-0.2) Sodium Level 140 mmol/L (136-145) Potassium Level 4.2 mmol/L (3.5-5.1) Chloride Level 106 mmol/L (98-107) Carbon Dioxide Level 25 mmol/L (21-32) Anion Gap 9 (6-14) Blood Urea Nitrogen 11 mg/dL (7-20) Creatinine 0.6 mg/dL (0.6-1.0) Estimated GFR (Cockcroft-Gault) 122.2 Glucose Level 125 mg/dL (70-99) Calcium Level 8.7 mg/dL (8.5-10.1) Phosphorus Level 3.0 mg/dL (2.6-4.7) Magnesium Level 2.2 mg/dL (1.8-2.4) Triglycerides Level 67 mg/dL (0-150) Glucose (Fingerstick) 132 mg/dL (70-99) 110 mg/dL (70-99) 122 mg/dL (70-99) Test 07/03/18 00:40 07/03/18 05:30 07/03/18 05:54 Glucose (Fingerstick) 106 mg/dL (70-99) 89 mg/dL (70-99) White Blood Count 6.8 x10^3/uL (4.0-11.0) Red Blood Count 2.95 x10^6/uL (3.50-5.40) Hemoglobin 7.9 g/dL (12.0-15.5) Hematocrit 23.5 % (36.0-47.0) Mean Corpuscular Volume 80 fL (79-100) Mean Corpuscular Hemoglobin 27 pg (25-35) Mean Corpuscular Hemoglobin Concent 33 g/dL (31-37) Red Cell Distribution Width 18.1 % (11.5-14.5) Platelet Count 258 x10^3/uL (140-400) Neutrophils (%) (Auto) 67 % (31-73) Lymphocytes (%) (Auto) 18 % (24-48) Monocytes (%) (Auto) 9 % (0-9) Eosinophils (%) (Auto) 5 % (0-3) Basophils (%) (Auto) 1 % (0-3) Neutrophils # (Auto) 4.6 x10^3uL (1.8-7.7) Lymphocytes # (Auto) 1.2 x10^3/uL (1.0-4.8) Monocytes # (Auto) 0.6 x10^3/uL (0.0-1.1) Eosinophils # (Auto) 0.3 x10^3/uL (0.0-0.7) Basophils # (Auto) 0.1 x10^3/uL (0.0-0.2) Sodium Level 138 mmol/L (136-145) Potassium Level 5.1 mmol/L (3.5-5.1) Chloride Level 107 mmol/L (98-107) Carbon Dioxide Level 24 mmol/L (21-32) Anion Gap 7 (6-14) Blood Urea Nitrogen 19 mg/dL (7-20) Creatinine 0.6 mg/dL (0.6-1.0) Estimated GFR (Cockcroft-Gault) 122.2 Glucose Level 96 mg/dL (70-99) Calcium Level 9.0 mg/dL (8.5-10.1) Phosphorus Level 2.3 mg/dL (2.6-4.7) Magnesium Level 2.0 mg/dL (1.8-2.4) Laboratory Tests Test 07/02/18 11:44 07/02/18 17:59 07/03/18 00:40 07/03/18 05:30 Glucose (Fingerstick) 110 mg/dL (70-99) 122 mg/dL (70-99) 106 mg/dL (70-99) White Blood Count 6.8 x10^3/uL (4.0-11.0) Red Blood Count 2.95 x10^6/uL (3.50-5.40) Hemoglobin 7.9 g/dL (12.0-15.5) Hematocrit 23.5 % (36.0-47.0) Mean Corpuscular Volume 80 fL (79-100) Mean Corpuscular Hemoglobin 27 pg (25-35) Mean Corpuscular Hemoglobin Concent 33 g/dL (31-37) Red Cell Distribution Width 18.1 % (11.5-14.5) Platelet Count 258 x10^3/uL (140-400) Neutrophils (%) (Auto) 67 % (31-73) Lymphocytes (%) (Auto) 18 % (24-48) Monocytes (%) (Auto) 9 % (0-9) Eosinophils (%) (Auto) 5 % (0-3) Basophils (%) (Auto) 1 % (0-3) Neutrophils # (Auto) 4.6 x10^3uL (1.8-7.7) Lymphocytes # (Auto) 1.2 x10^3/uL (1.0-4.8) Monocytes # (Auto) 0.6 x10^3/uL (0.0-1.1) Eosinophils # (Auto) 0.3 x10^3/uL (0.0-0.7) Basophils # (Auto) 0.1 x10^3/uL (0.0-0.2) Sodium Level 138 mmol/L (136-145) Potassium Level 5.1 mmol/L (3.5-5.1) Chloride Level 107 mmol/L (98-107) Carbon Dioxide Level 24 mmol/L (21-32) Anion Gap 7 (6-14) Blood Urea Nitrogen 19 mg/dL (7-20) Creatinine 0.6 mg/dL (0.6-1.0) Estimated GFR (Cockcroft-Gault) 122.2 Glucose Level 96 mg/dL (70-99) Calcium Level 9.0 mg/dL (8.5-10.1) Phosphorus Level 2.3 mg/dL (2.6-4.7) Magnesium Level 2.0 mg/dL (1.8-2.4) Test 07/03/18 05:54 Glucose (Fingerstick) 89 mg/dL (70-99) Meds Current Medications Nystatin (Nystop) 1 nallely BID TP ; Start 07/03/18 at 11:00 Sodium Chloride 200 meq/Sodium Acetate 20 meq/ Potassium Chloride 120 meq/ Potassium Phosphate 6.8 mmol/Magnesium Sulfate 28 meq/ Calcium Gluconate 10 meq / Multivitamins 10 ml/Chromium/ Copper/Manganese/ Seleni/Zn 1 ml/ Total Parenteral Nutrition/Amino Acids/Dextrose/ Fat Emuls... 2,040 ml @ 85 mls/hr TPN CONT IV Last administered on 07/02/18at 22:04; Start 07/02/18 at 22:00; Stop 07/03/18 at 21:59 Assessment Assessment Assessment Problems1. Severe hypokalemia. resolved 2. Severe hypomagnesemia. resolved 3. Mild hyponatremia. resolved 4. Anemia of chronic disease. 5. Enterocutaneous fistula. 6. Enterovesical fistula. 7. Severe protein calorie malnutrition. 8. Hypertension.BP on low side of normal 9. Chronic abdominal pain secondary to adhesions Medical Problems: (1) Low magnesium level Status: Acute (2) Low serum potassium Status: Acute Plan Plan of Care daily labs d/c amlodipine Continue TPN. Pruritus- I have started her on Benadryl. Patient is advised to stop scratching and use lotion topically. Hypokalemia- better. Potassium has now increased and it is 5.1. Hypomagnesemia- better. Magnesium is 2.2. Hypophosphatemia. - Phosphorus level is 2.3. Adjust TPN. Patient has bleeding and neck sclerae aeration of the wounds around the fistula. I'll order nystatin powder. Patient does not want to see the wound care nurse of the osteotomy nurse. She does not like their way of managing her wounds. Plan Plan For more details regarding further plans, please refer to the orders. CHRISTOFER BRITO MD Jul 03, 2018 11:29
[2018-07-03] MEDS: TPN PER PHARMACY MC PRN (12:25)
--- NOTE | 2018-07-03 12:26 | NUR ---
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 LABS: Sodium: 138 Potassium: 5.1 Chloride: 107 Calcium: 9.0 Corrected Calcium: 10.52 Magnesium: 2.0 CO2: 24 SCr: 0.6 Glucose: 103 Albumin: 2.1 AST: 13 ALT: 14 TPN FORMULA: TPN TYPE: Central Continuous AMINO ACIDS: 90 gm DEXTROSE: 275 gm LIPIDS: 35 gm SODIUM CHLORIDE: 200 mEq SODIUM ACETATE: - mEq SODIUM PHOSPHATE: 30 mmol POTASSIUM CHLORIDE: 100 mEq POTASSIUM ACETATE: - mEq POTASSIUM PHOSPHATE: 6.8 mmol MAGNESIUM: 28 mEq CALCIUM: 10 mEq INSULIN: - units MULTIPLE VITAMIN: 10 ml TRACE ELEMENTS: MTE5 1ML ml(s) TPN PLAN: 07/03 DECREASED KCl TO 100meq, INCREASE NaPhos TO 30mmol AND BOLUS NaPhos R: Change TPN as above. Will monitor electrolytes, glucose, and tolerance to TPN. ROC ROBLES RPH, 07/03/18 1226 Addendum: 07/03/18 at 1229 by ROC ORBLES RPH PHA CORRECTION: ADD NaPhos 10mmol to TPN
[2018-07-03] MEDS ORDERED: SODIUM PHOSPHATE 15 MMOL in IV DEXTROSE 5% 250 ML IV ONE (13:00)
[2018-07-03] MEDS ORDERED: NYSTATIN TOPICAL POWDER 15GM BOTTLE. TP SCH (21:00)
[2018-07-03] MEDS ORDERED: DEXTROSE 70% IV SCH ×12 (22:00)
[2018-07-03] MEDS ORDERED: TOTAL PARENTERAL NUTRITION IV SCH ×12 (22:00)
[2018-07-03] MEDS ORDERED: AMINO ACID IV SCH ×12 (22:00)
[2018-07-03] MEDS ORDERED: [UNRECOGNIZED DRUG - OTHER] IV SCH ×12 (22:00)
[2018-07-04] MEDS: HYDROmorphone 2 MG/ML VIAL IVP PRN ×5 (01:58→21:11)
[2018-07-04 03:10] VITALS: BP 156/82
[2018-07-04 05:32] LABS: BASO # 0.1 x10^3/uL (0.0-0.2); BASO % 2 % (0-3); EOS # 0.5 x10^3/uL (0.0-0.7); EOS % 6 % (0-3); HEMATOCRIT 26.5 % (36.0-47.0); HEMOGLOBIN 8.4 g/dL (12.0-15.5); LYMPH # 1.6 x10^3/uL (1.0-4.8); LYMPH % 22 % (24-48); MEAN CORPUSCULAR HEMOGLOBIN 26 pg (25-35); MEAN CORPUSCULAR HGB CONC 32 g/dL (31-37); MEAN CORPUSCULAR VOLUME 80 fL (79-100); MONO # 0.7 x10^3/uL (0.0-1.1); MONO % 9 % (0-9); NEUT # 4.6 x10^3uL (1.8-7.7); NEUT % 61 % (31-73); PLATELET COUNT 345 x10^3/uL (140-400); WHITE BLOOD COUNT 7.6 x10^3/uL (4.0-11.0)
[2018-07-04 05:44] LABS: PROTHROMBIN TIME PATIENT 12.8 SEC (11.7-14.0)
[2018-07-04 05:53] LABS: CALCIUM 9.5 mg/dL (8.5-10.1); CREATININE 0.8 mg/dL (0.6-1.0); GFR 87.7; MAGNESIUM 2.1 mg/dL (1.8-2.4); PHOSPHORUS 3.6 mg/dL (2.6-4.7); POTASSIUM 5.5 mmol/L (3.5-5.1)
[2018-07-04 07:33] VITALS: BP 150/88
[2018-07-04] MEDS: LIDOCAINE 2% TOPICAL JELLY 30GM TUBE. TP SCH ×2 (09:50→21:12)
[2018-07-04] MEDS: SERTRALINE 50 MG TABLET. PO SCH (09:50)
[2018-07-04] MEDS: NYSTATIN TOPICAL POWDER 15GM BOTTLE. TP SCH ×2 (09:51→21:32)
[2018-07-04] MEDS: ZINC OXIDE 20% TOPICAL OINTMENT 28GM TUBE. TP SCH ×2 (09:51→21:12)
[2018-07-04] MEDS ORDERED: FUROSEMIDE 40 MG/4 ML VIAL. IVP ONE (10:30)
[2018-07-04] MEDS ORDERED: SODIUM POLYSTYRENE SULFONATE 15 GM/60 ML ORAL.SUSP. PO ONE (10:30)
--- NOTE | 2018-07-04 10:31 | PDOC ---
PROGRESS NOTES Subjective Subjective lab reviewed. has hyperkalemia .potassium 5.5. has bilateral leg edema. bp slightly high. Objective Objective Vital Signs Date Time Temp Pulse Resp B/P (MAP) Pulse Ox O2 Delivery O2 Flow Rate FiO2 07/04/18 10:06 16 99 Room Air 07/04/18 07:33 98.1 86 150/88 (108) 98.1 Intake and Output 07/04/18 07:01 Intake Total 2000 ml Balance 2000 ml Intake Oral 2000 ml # Voids 5 Physical Exam Abdomen: Soft, Other (EC fistula) Heart: Regular rate, Normal S1, Normal S2 Extremities: Other (2 plus edema LLE and 1 plus edema RLE) General: Alert HEENT: Atraumatic Lungs: Clear to auscultation Neuro: Normal speech Psych/Mental Status: Mental status NL Skin: No rashes Assessment Assessment Problems1. Severe hypokalemia. resolved 2. Severe hypomagnesemia. resolved 3. Mild hyponatremia. resolved 4. Anemia of chronic disease. 5. Enterocutaneous fistula. 6. Enterovesical fistula. 7. Severe protein calorie malnutrition. 8. Hypertension.BP on low side of normal 9. Chronic abdominal pain secondary to adhesions hyperkalemia leg edema Medical Problems: (1) Low magnesium level Status: Acute (2) Low serum potassium Status: Acute Plan Plan of Care iv lasix times 1 dose D/C TPN due to hyperkalemia IV D5NS until hyperkalemia resolved kayexelate times 1 dose now discussed with pharmacist lab tomorrow Comment Review of Relevant I have reviewed the following items lucila (where applicable) has been applied. Labs Laboratory Tests Test 07/02/18 11:44 07/02/18 17:59 07/03/18 00:40 07/03/18 05:30 Glucose (Fingerstick) 110 mg/dL (70-99) 122 mg/dL (70-99) 106 mg/dL (70-99) White Blood Count 6.8 x10^3/uL (4.0-11.0) Red Blood Count 2.95 x10^6/uL (3.50-5.40) Hemoglobin 7.9 g/dL (12.0-15.5) Hematocrit 23.5 % (36.0-47.0) Mean Corpuscular Volume 80 fL (79-100) Mean Corpuscular Hemoglobin 27 pg (25-35) Mean Corpuscular Hemoglobin Concent 33 g/dL (31-37) Red Cell Distribution Width 18.1 % (11.5-14.5) Platelet Count 258 x10^3/uL (140-400) Neutrophils (%) (Auto) 67 % (31-73) Lymphocytes (%) (Auto) 18 % (24-48) Monocytes (%) (Auto) 9 % (0-9) Eosinophils (%) (Auto) 5 % (0-3) Basophils (%) (Auto) 1 % (0-3) Neutrophils # (Auto) 4.6 x10^3uL (1.8-7.7) Lymphocytes # (Auto) 1.2 x10^3/uL (1.0-4.8) Monocytes # (Auto) 0.6 x10^3/uL (0.0-1.1) Eosinophils # (Auto) 0.3 x10^3/uL (0.0-0.7) Basophils # (Auto) 0.1 x10^3/uL (0.0-0.2) Sodium Level 138 mmol/L (136-145) Potassium Level 5.1 mmol/L (3.5-5.1) Chloride Level 107 mmol/L (98-107) Carbon Dioxide Level 24 mmol/L (21-32) Anion Gap 7 (6-14) Blood Urea Nitrogen 19 mg/dL (7-20) Creatinine 0.6 mg/dL (0.6-1.0) Estimated GFR (Cockcroft-Gault) 122.2 Glucose Level 96 mg/dL (70-99) Calcium Level 9.0 mg/dL (8.5-10.1) Phosphorus Level 2.3 mg/dL (2.6-4.7) Magnesium Level 2.0 mg/dL (1.8-2.4) Test 07/03/18 05:54 07/03/18 11:27 07/03/18 16:27 07/04/18 02:33 Glucose (Fingerstick) 89 mg/dL (70-99) 103 mg/dL (70-99) 118 mg/dL (70-99) 105 mg/dL (70-99) Test 07/04/18 05:20 07/04/18 05:59 White Blood Count 7.6 x10^3/uL (4.0-11.0) Red Blood Count 3.30 x10^6/uL (3.50-5.40) Hemoglobin 8.4 g/dL (12.0-15.5) Hematocrit 26.5 % (36.0-47.0) Mean Corpuscular Volume 80 fL (79-100) Mean Corpuscular Hemoglobin 26 pg (25-35) Mean Corpuscular Hemoglobin Concent 32 g/dL (31-37) Red Cell Distribution Width 18.0 % (11.5-14.5) Platelet Count 345 x10^3/uL (140-400) Neutrophils (%) (Auto) 61 % (31-73) Lymphocytes (%) (Auto) 22 % (24-48) Monocytes (%) (Auto) 9 % (0-9) Eosinophils (%) (Auto) 6 % (0-3) Basophils (%) (Auto) 2 % (0-3) Neutrophils # (Auto) 4.6 x10^3uL (1.8-7.7) Lymphocytes # (Auto) 1.6 x10^3/uL (1.0-4.8) Monocytes # (Auto) 0.7 x10^3/uL (0.0-1.1) Eosinophils # (Auto) 0.5 x10^3/uL (0.0-0.7) Basophils # (Auto) 0.1 x10^3/uL (0.0-0.2) Prothrombin Time 12.8 SEC (11.7-14.0) Prothromb Time International Ratio 1.0 (0.8-1.1) Sodium Level 135 mmol/L (136-145) Potassium Level 5.5 mmol/L (3.5-5.1) Chloride Level 104 mmol/L (98-107) Carbon Dioxide Level 23 mmol/L (21-32) Anion Gap 8 (6-14) Blood Urea Nitrogen 22 mg/dL (7-20) Creatinine 0.8 mg/dL (0.6-1.0) Estimated GFR (Cockcroft-Gault) 87.7 Glucose Level 111 mg/dL (70-99) Calcium Level 9.5 mg/dL (8.5-10.1) Phosphorus Level 3.6 mg/dL (2.6-4.7) Magnesium Level 2.1 mg/dL (1.8-2.4) Glucose (Fingerstick) 99 mg/dL (70-99) Laboratory Tests Test 07/03/18 11:27 07/03/18 16:27 07/04/18 02:33 07/04/18 05:20 Glucose (Fingerstick) 103 mg/dL (70-99) 118 mg/dL (70-99) 105 mg/dL (70-99) White Blood Count 7.6 x10^3/uL (4.0-11.0) Red Blood Count 3.30 x10^6/uL (3.50-5.40) Hemoglobin 8.4 g/dL (12.0-15.5) Hematocrit 26.5 % (36.0-47.0) Mean Corpuscular Volume 80 fL (79-100) Mean Corpuscular Hemoglobin 26 pg (25-35) Mean Corpuscular Hemoglobin Concent 32 g/dL (31-37) Red Cell Distribution Width 18.0 % (11.5-14.5) Platelet Count 345 x10^3/uL (140-400) Neutrophils (%) (Auto) 61 % (31-73) Lymphocytes (%) (Auto) 22 % (24-48) Monocytes (%) (Auto) 9 % (0-9) Eosinophils (%) (Auto) 6 % (0-3) Basophils (%) (Auto) 2 % (0-3) Neutrophils # (Auto) 4.6 x10^3uL (1.8-7.7) Lymphocytes # (Auto) 1.6 x10^3/uL (1.0-4.8) Monocytes # (Auto) 0.7 x10^3/uL (0.0-1.1) Eosinophils # (Auto) 0.5 x10^3/uL (0.0-0.7) Basophils # (Auto) 0.1 x10^3/uL (0.0-0.2) Prothrombin Time 12.8 SEC (11.7-14.0) Prothromb Time International Ratio 1.0 (0.8-1.1) Sodium Level 135 mmol/L (136-145) Potassium Level 5.5 mmol/L (3.5-5.1) Chloride Level 104 mmol/L (98-107) Carbon Dioxide Level 23 mmol/L (21-32) Anion Gap 8 (6-14) Blood Urea Nitrogen 22 mg/dL (7-20) Creatinine 0.8 mg/dL (0.6-1.0) Estimated GFR (Cockcroft-Gault) 87.7 Glucose Level 111 mg/dL (70-99) Calcium Level 9.5 mg/dL (8.5-10.1) Phosphorus Level 3.6 mg/dL (2.6-4.7) Magnesium Level 2.1 mg/dL (1.8-2.4) Test 07/04/18 05:59 Glucose (Fingerstick) 99 mg/dL (70-99) Medications Current Medications Piperacillin Sod/ Tazobactam Sod (Zosyn Per Pharmacy) 1 each PRN DAILY PRN MC SEE COMMENTS; Start 06/30/18 at 10:30; Stop 06/30/18 at 12:46; Status DC Piperacillin Sod/ Tazobactam Sod 3.375 gm/Sodium Chloride 50 ml @ 100 mls/hr ONCE ONCE IV Last administered on 06/30/18at 11:03; Start 06/30/18 at 10:30; Stop 06/30/18 at 10:59; Status DC Sodium Chloride 500 ml @ 500 mls/hr 1X ONCE IV ; Start 06/30/18 at 10:30; Stop 06/30/18 at 10:55; Status DC Fentanyl Citrate (Fentanyl 2ml Vial) 25 mcg 1X PRN PRN IV SEVERE PAIN Last administered on 06/30/18at 10:56; Start 06/30/18 at 10:45; Stop 07/01/18 at 11:04 ; Status DC Potassium Chloride/Sodium Chloride 1,000 ml @ 75 mls/hr 1X ONCE IV Last administered on 06/30/18at 11:03; Start 06/30/18 at 11:00; Stop 07/01/18 at 00:19 ; Status DC Magnesium Sulfate 50 ml @ 25 mls/hr 1X ONCE IV Last administered on 06/30/18at 20:41; Start 06/30/18 at 11:45; Stop 06/30/18 at 13:44; Status DC Sodium Chloride 1,000 ml @ 100 mls/hr Q10H IV ; Start 06/30/18 at 11:45; Stop 06/30/18 at 11:46; Status DC Piperacillin Sod/ Tazobactam Sod 3.375 gm/Sodium Chloride 50 ml @ 100 mls/hr Q6HRS IV ; Start 06/30/18 at 18:00; Stop 06/30/18 at 18:00; Status DC Magnesium Sulfate/ Dextrose 100 ml @ 25 mls/hr 1X ONCE IV Last administered on 06/30/18at 13:47; Start 06/30/18 at 13:00; Stop 06/30/18 at 16:59; Status DC Potassium Chloride/Sodium Chloride 1,000 ml @ 75 mls/hr [id number] IV ; Start at 12:30; Status UNV Potassium Chloride/Water 50 ml @ 50 mls/hr Q1H IV Last administered on at 18:16; Start 06/30/18 at 13:00; Stop 06/30/18 at 14:59; Status DC Hydromorphone HCl (Dilaudid) 2 mg PRN Q4HRS PRN IVP PAIN MILD TO MOD Last administered on 07/03/18at 21:27; Start 06/30/18 at 12:30 Hydromorphone HCl (Dilaudid) 4 mg PRN Q4HRS PRN IVP PAIN SEVERE Last administered on 07/04/18at 10:06; Start 06/30/18 at 12:30 Ondansetron HCl (Zofran) 4 mg PRN Q6HRS PRN IV NAUSEA/VOMITING Last administered on 07/01/18at 16:32; Start 06/30/18 at 12:30 Amlodipine Besylate (Norvasc) 5 mg DAILY PO Last administered on 07/01/18at 08: 35; Start 07/01/18 at 09:00; Stop 07/01/18 at 11:04; Status DC Trazodone HCl (Desyrel) 50 mg PRN QHS PRN PO INSOMNIA; Start 06/30/18 at 12:30 Sertraline HCl (Zoloft) 50 mg DAILY PO Last administered on 07/04/18at 09:50; Start 07/01/18 at 09:00 Zinc Oxide (Zinc Oxide 20% Topical) 1 sang BID TP Last administered on at 09:51; Start 06/30/18 at 21:00 Lorazepam (Ativan) 0.5 mg PRN Q6HRS PRN PO ANXIETY / AGITATION; Start 06/30/18 at 12:30 Acetaminophen (Tylenol) 650 mg PRN Q6HRS PRN PO MILD PAIN / TEMP Last administered on 07/01/18at 14:50; Start 06/30/18 at 12:30 Potassium Chloride 40 meq/ Dextrose/Sodium Chloride 1,020 ml @ 75 mls/hr [id number] IV Last administered on 07/01/18at 10:43; Start 06/30/18 at 14:00; Stop 07/01/18 at 21:59; Status DC Lidocaine HCl (Xylocaine 2% Topical 30gm Tube) 1 sang BID TP Last administered on 07/04/18at 09:50; Start 06/30/18 at 21:00 Sodium Chloride 200 meq/Sodium Acetate 20 meq/ Potassium Chloride 120 meq/ Potassium Phosphate 6.8 mmol/Magnesium Sulfate 28 meq/ Calcium Gluconate 10 meq / Multivitamins 10 ml/Chromium/ Copper/Manganese/ Seleni/Zn 1 ml/ Total Parenteral Nutrition/Amino Acids/Dextrose/ Fat Emuls... 2,040 ml @ 85 mls/hr TPN CONT IV Last administered on 07/01/18at 22:33; Start 07/01/18 at 22:00; Stop 07/02/18 at 21:59; Status DC Info (Tpn Per Pharmacy) 1 each PRN DAILY PRN MC SEE COMMENTS Last administered on 07/03/18at 12:25; Start 07/01/18 at 13:00 Diphenhydramine HCl (Benadryl) 25 mg PRN Q6HRS PRN PO ITCHING Last administered on 07/03/18at 04:38; Start 07/02/18 at 05:00 Sodium Chloride 200 meq/Sodium Acetate 20 meq/ Potassium Chloride 120 meq/ Potassium Phosphate 6.8 mmol/Magnesium Sulfate 28 meq/ Calcium Gluconate 10 meq / Multivitamins 10 ml/Chromium/ Copper/Manganese/ Seleni/Zn 1 ml/ Total Parenteral Nutrition/Amino Acids/Dextrose/ Fat Emuls... 2,040 ml @ 85 mls/hr TPN CONT IV Last administered on 07/02/18at 22:04; Start 07/02/18 at 22:00; Stop 07/03/18 at 21:59; Status DC Nystatin (Nystop) 1 sang BID TP Last administered on 07/04/18at 09:51; Start at 11:00 Nystatin (Nystop) 1 sang BID TP ; Start 07/03/18 at 21:00; Stop 07/10/18 at 20:59 ; Status UNV Sodium Phosphate 15 mmol/Dextrose 255 ml @ 63.75 mls/ hr 1X ONCE IV Last administered on 07/03/18at 13:01; Start 07/03/18 at 13:00; Stop 07/03/18 at 16:59 ; Status DC Sodium Chloride 200 meq/Sodium Acetate 20 meq/ Sodium Phosphate 10 mmol/ Potassium Chloride 100 meq/ Potassium Phosphate 6.8 mmol/Magnesium Sulfate 28 meq/ Calcium Gluconate 10 meq/ Multivitamins 10 ml/Chromium/ Copper/Manganese/ Seleni/Zn 1 ml/ Total Parenteral Nutrition/Amino Acids/Dextro... 2,040 ml @ 85 mls/hr TPN CONT IV Last administered on 07/03/18at 23:23; Start 07/03/18 at 22: 00; Stop 07/04/18 at 21:59 Active Scripts Active Ambien (Zolpidem Tartrate) 5 Mg Tablet 5 Mg PO PRN QHS PRN 30 Days [Tpn Per Pharmacy] 1 EACH Each 1 Each MC PRN DAILY PRN TPN at 85cc/hour [Pantoprazole] 40 MG Tablet.dr 40 Mg PO DAILYAC Amlodipine Besylate 10 Mg Tablet 5 Mg PO DAILY Tylenol (Acetaminophen) 325 Mg Tablet 650 Mg PO PRN Q6HRS PRN 30 Days Sertraline Hcl 50 Mg Tablet 50 Mg PO DAILY 30 Days Lidocaine 35.44 Gm Oint...g. 1 Sang TP BID Reported Zofran Odt (Ondansetron) 4 Mg Tab.rapdis 1 Tab SL PRN Q8HRS PRN Zinc Oxide 56.7 Gm Oint...g. 56.7 Gm TP PRN BID Dilaudid (Hydromorphone Hcl) 2 Mg Tablet 1 Tab PO PRN QID PRN Lorazepam 0.5 Mg Tablet 0.5 Mg PO Q6HRS PRN Vitals/I & O Vital Sign - Last 24 Hours 07/03/18 07/03/18 07/03/18 07/03/18 11:10 13:00 15:23 16:57 Temp 97.5 97.5 97.5 97.5 Pulse 78 102 Resp 17 18 B/P (MAP) 110/63 (79) 165/70 (101) Pulse Ox 100 100 O2 Delivery Room Air Room Air Room Air Room Air 07/03/18 07/03/18 07/03/18 07/03/18 19:10 20:00 21:22 21:27 Temp 97.6 97.6 Pulse 89 Resp 18 B/P (MAP) 146/93 (110) Pulse Ox 99 99 99 O2 Delivery Room Air Room Air Room Air Room Air 07/03/18 07/03/18 07/04/18 07/04/18 23:00 23:10 01:58 03:10 Temp 97.8 98.7 97.8 98.7 Pulse 81 95 Resp 18 18 B/P (MAP) 137/74 (95) 156/82 (106) Pulse Ox 99 98 98 100 O2 Delivery Room Air Room Air Room Air Room Air 07/04/18 07/04/18 07/04/18 07/04/18 06:05 06:43 07:33 10:06 Temp 98.1 98.1 Pulse 86 Resp 18 16 B/P (MAP) 150/88 (108) Pulse Ox 98 98 99 99 O2 Delivery Room Air Room Air Room Air Room Air Intake and Output 07/03/18 07/03/18 07/04/18 15:01 23:01 07:01 Intake Total 900 ml 300 ml 800 ml Balance 900 ml 300 ml 800 ml Nutrition Consultation Dietary Evaluation: Recommendations by RD: PPN/TPN Comments: continue with gi soft diet and Home TPN Expected Outcomes/Goals: wt maintainance Malnutrition Findings: Body Fat Depletion (Non Severe: Mild Depletion Weight Status: Appropriate BENITA LUTZ MD Jul 04, 2018 10:31
[2018-07-04 11:20] VITALS: BP 178/84
[2018-07-04] MEDS: IV DEXTROSE 5% - 0.9 % NACL 1,000 ML IV SCH (11:43)
--- NOTE | 2018-07-04 11:53 | PDOC ---
Subjective: Subjective: Doing okay - maybe some increase fistulae output today, pain comes and goes. Had some cottage cheese. Objective: Vital Signs: Vital Signs Date Time Temp Pulse Resp B/P (MAP) Pulse Ox O2 Delivery O2 Flow Rate FiO2 07/04/18 10:06 16 99 Room Air 07/04/18 07:33 98.1 86 150/88 (108) 98.1 Labs: Laboratory Tests Test 07/03/18 16:27 07/04/18 02:33 07/04/18 05:20 07/04/18 05:59 Glucose (Fingerstick) 118 mg/dL 105 mg/dL 99 mg/dL White Blood Count 7.6 x10^3/uL Red Blood Count 3.30 x10^6/uL Hemoglobin 8.4 g/dL Hematocrit 26.5 % Mean Corpuscular Volume 80 fL Mean Corpuscular Hemoglobin 26 pg Mean Corpuscular Hemoglobin Concent 32 g/dL Red Cell Distribution Width 18.0 % Platelet Count 345 x10^3/uL Neutrophils (%) (Auto) 61 % Lymphocytes (%) (Auto) 22 % Monocytes (%) (Auto) 9 % Eosinophils (%) (Auto) 6 % Basophils (%) (Auto) 2 % Neutrophils # (Auto) 4.6 x10^3uL Lymphocytes # (Auto) 1.6 x10^3/uL Monocytes # (Auto) 0.7 x10^3/uL Eosinophils # (Auto) 0.5 x10^3/uL Basophils # (Auto) 0.1 x10^3/uL Prothrombin Time 12.8 SEC Prothromb Time International Ratio 1.0 Sodium Level 135 mmol/L Potassium Level 5.5 mmol/L Chloride Level 104 mmol/L Carbon Dioxide Level 23 mmol/L Anion Gap 8 Blood Urea Nitrogen 22 mg/dL Creatinine 0.8 mg/dL Estimated GFR (Cockcroft-Gault) 87.7 Glucose Level 111 mg/dL Calcium Level 9.5 mg/dL Phosphorus Level 3.6 mg/dL Magnesium Level 2.1 mg/dL Test 07/04/18 11:41 Glucose (Fingerstick) 116 mg/dL PE: GEN: NAD, sitting on edge of bed changing out towels LUNGS: CTAB HEART: RRR ABD: towels with spots of yellow drainage, skin more erythematous that usual NEURO/PSYCH: A & O �3 A/P: H/o diverticular disease w/ multiple surgeries, fistulae/drainage, chronic abd pain, n/v Chronic anemia - better UTI (E coli) Hyperkalemia -- Note plans to stop TPN. Chronic symptoms stable. MIESHA RICO Jul 04, 2018 11:53
[2018-07-04] MEDS: LORazepam 0.5 MG TABLET PO PRN ×2 (13:50→21:11)
[2018-07-04 19:15] VITALS: BP 166/50
[2018-07-04 23:23] VITALS: BP 154/83
[2018-07-05] MEDS: IV DEXTROSE 5% - 0.9 % NACL 1,000 ML IV SCH ×2 (00:05→11:30)
[2018-07-05] MEDS: HYDROmorphone 2 MG/ML VIAL IVP PRN ×5 (02:47→22:30)
[2018-07-05 03:34] VITALS: BP 148/81
[2018-07-05] MEDS: LORazepam 0.5 MG TABLET PO PRN ×3 (05:25→22:29)
[2018-07-05 05:48] LABS: CREATININE 0.8 mg/dL (0.6-1.0); GFR 87.7; MAGNESIUM 1.6 mg/dL (1.8-2.4); POTASSIUM 4.5 mmol/L (3.5-5.1)
[2018-07-05 07:00] VITALS: BP 147/75
[2018-07-05] MEDS: LIDOCAINE 2% TOPICAL JELLY 30GM TUBE. TP SCH ×2 (09:00→22:42)
[2018-07-05] MEDS: ZINC OXIDE 20% TOPICAL OINTMENT 28GM TUBE. TP SCH ×2 (09:00→22:42)
[2018-07-05] MEDS: SERTRALINE 50 MG TABLET. PO SCH (09:04)
--- NOTE | 2018-07-05 10:25 | PDOC ---
PROGRESS NOTES Subjective Subjective feels better. lab reviewed. potassium okay. magnesium low Objective Objective Vital Signs Date Time Temp Pulse Resp B/P (MAP) Pulse Ox O2 Delivery O2 Flow Rate FiO2 07/05/18 09:30 Room Air 07/05/18 07:00 97.9 89 16 147/75 (99) 98 97.9 Intake and Output 07/05/18 07:01 Intake Total 1020 ml Output Total 1001 ml Balance 19 ml Intake Oral 1020 ml Output Urine Total 1001 ml Physical Exam Abdomen: Soft, Other ( ec fistula) Heart: Regular rate, Normal S1, Normal S2 Extremities: Other (2 plus edema LLE. treace edema RLE) General: Alert HEENT: Atraumatic Lungs: Clear to auscultation Neuro: Normal speech Psych/Mental Status: Mental status NL Skin: No rashes Assessment Assessment Problems1. Severe hypokalemia. resolved 2. hypomagnesemia. 3. Mild hyponatremia. resolved 4. Anemia of chronic disease. 5. Enterocutaneous fistula. 6. Enterovesical fistula. 7. Severe protein calorie malnutrition. 8. Hypertension.BP on low side of normal 9. Chronic abdominal pain secondary to adhesions hyperkalemia resolved leg edema Medical Problems: (1) Low magnesium level Status: Acute (2) Low serum potassium Status: Acute Plan Plan of Care resume TPN later today when available d/c iv fluids when TPN started lab tomorrow iv magnesium Comment Review of Relevant I have reviewed the following items lucila (where applicable) has been applied. Labs Laboratory Tests Test 07/03/18 11:27 07/03/18 16:27 07/04/18 02:33 07/04/18 05:20 Glucose (Fingerstick) 103 mg/dL (70-99) 118 mg/dL (70-99) 105 mg/dL (70-99) White Blood Count 7.6 x10^3/uL (4.0-11.0) Red Blood Count 3.30 x10^6/uL (3.50-5.40) Hemoglobin 8.4 g/dL (12.0-15.5) Hematocrit 26.5 % (36.0-47.0) Mean Corpuscular Volume 80 fL (79-100) Mean Corpuscular Hemoglobin 26 pg (25-35) Mean Corpuscular Hemoglobin Concent 32 g/dL (31-37) Red Cell Distribution Width 18.0 % (11.5-14.5) Platelet Count 345 x10^3/uL (140-400) Neutrophils (%) (Auto) 61 % (31-73) Lymphocytes (%) (Auto) 22 % (24-48) Monocytes (%) (Auto) 9 % (0-9) Eosinophils (%) (Auto) 6 % (0-3) Basophils (%) (Auto) 2 % (0-3) Neutrophils # (Auto) 4.6 x10^3uL (1.8-7.7) Lymphocytes # (Auto) 1.6 x10^3/uL (1.0-4.8) Monocytes # (Auto) 0.7 x10^3/uL (0.0-1.1) Eosinophils # (Auto) 0.5 x10^3/uL (0.0-0.7) Basophils # (Auto) 0.1 x10^3/uL (0.0-0.2) Prothrombin Time 12.8 SEC (11.7-14.0) Prothromb Time International Ratio 1.0 (0.8-1.1) Sodium Level 135 mmol/L (136-145) Potassium Level 5.5 mmol/L (3.5-5.1) Chloride Level 104 mmol/L (98-107) Carbon Dioxide Level 23 mmol/L (21-32) Anion Gap 8 (6-14) Blood Urea Nitrogen 22 mg/dL (7-20) Creatinine 0.8 mg/dL (0.6-1.0) Estimated GFR (Cockcroft-Gault) 87.7 Glucose Level 111 mg/dL (70-99) Calcium Level 9.5 mg/dL (8.5-10.1) Phosphorus Level 3.6 mg/dL (2.6-4.7) Magnesium Level 2.1 mg/dL (1.8-2.4) Test 07/04/18 05:59 07/04/18 11:41 07/04/18 18:19 07/05/18 05:15 Glucose (Fingerstick) 99 mg/dL (70-99) 116 mg/dL (70-99) 99 mg/dL (70-99) Sodium Level 135 mmol/L (136-145) Potassium Level 4.5 mmol/L (3.5-5.1) Chloride Level 103 mmol/L (98-107) Carbon Dioxide Level 24 mmol/L (21-32) Anion Gap 8 (6-14) Blood Urea Nitrogen 20 mg/dL (7-20) Creatinine 0.8 mg/dL (0.6-1.0) Estimated GFR (Cockcroft-Gault) 87.7 Glucose Level 160 mg/dL (70-99) Calcium Level 9.0 mg/dL (8.5-10.1) Magnesium Level 1.6 mg/dL (1.8-2.4) Test 07/05/18 05:31 Glucose (Fingerstick) 128 mg/dL (70-99) Laboratory Tests Test 07/04/18 11:41 07/04/18 18:19 07/05/18 05:15 07/05/18 05:31 Glucose (Fingerstick) 116 mg/dL (70-99) 99 mg/dL (70-99) 128 mg/dL (70-99) Sodium Level 135 mmol/L (136-145) Potassium Level 4.5 mmol/L (3.5-5.1) Chloride Level 103 mmol/L (98-107) Carbon Dioxide Level 24 mmol/L (21-32) Anion Gap 8 (6-14) Blood Urea Nitrogen 20 mg/dL (7-20) Creatinine 0.8 mg/dL (0.6-1.0) Estimated GFR (Cockcroft-Gault) 87.7 Glucose Level 160 mg/dL (70-99) Calcium Level 9.0 mg/dL (8.5-10.1) Magnesium Level 1.6 mg/dL (1.8-2.4) Microbiology 06/30/18 Urine Culture - Final, Complete 06/30/18 Urine Culture Result 1 (ROYA) - Final, Complete 06/30/18 Antimicrobic Susceptibility - Final, Complete Medications Current Medications Piperacillin Sod/ Tazobactam Sod (Zosyn Per Pharmacy) 1 each PRN DAILY PRN MC SEE COMMENTS; Start 06/30/18 at 10:30; Stop 06/30/18 at 12:46; Status DC Piperacillin Sod/ Tazobactam Sod 3.375 gm/Sodium Chloride 50 ml @ 100 mls/hr ONCE ONCE IV Last administered on 06/30/18at 11:03; Start 06/30/18 at 10:30; Stop 06/30/18 at 10:59; Status DC Sodium Chloride 500 ml @ 500 mls/hr 1X ONCE IV ; Start 06/30/18 at 10:30; Stop 06/30/18 at 10:55; Status DC Fentanyl Citrate (Fentanyl 2ml Vial) 25 mcg 1X PRN PRN IV SEVERE PAIN Last administered on 06/30/18at 10:56; Start 06/30/18 at 10:45; Stop 07/01/18 at 11:04 ; Status DC Potassium Chloride/Sodium Chloride 1,000 ml @ 75 mls/hr 1X ONCE IV Last administered on 06/30/18at 11:03; Start 06/30/18 at 11:00; Stop 07/01/18 at 00:19 ; Status DC Magnesium Sulfate 50 ml @ 25 mls/hr 1X ONCE IV Last administered on 06/30/18at 20:41; Start 06/30/18 at 11:45; Stop 06/30/18 at 13:44; Status DC Sodium Chloride 1,000 ml @ 100 mls/hr Q10H IV ; Start 06/30/18 at 11:45; Stop 06/30/18 at 11:46; Status DC Piperacillin Sod/ Tazobactam Sod 3.375 gm/Sodium Chloride 50 ml @ 100 mls/hr Q6HRS IV ; Start 06/30/18 at 18:00; Stop 06/30/18 at 18:00; Status DC Magnesium Sulfate/ Dextrose 100 ml @ 25 mls/hr 1X ONCE IV Last administered on 06/30/18at 13:47; Start 06/30/18 at 13:00; Stop 06/30/18 at 16:59; Status DC Potassium Chloride/Sodium Chloride 1,000 ml @ 75 mls/hr [id number] IV ; Start at 12:30; Status UNV Potassium Chloride/Water 50 ml @ 50 mls/hr Q1H IV Last administered on at 18:16; Start 06/30/18 at 13:00; Stop 06/30/18 at 14:59; Status DC Hydromorphone HCl (Dilaudid) 2 mg PRN Q4HRS PRN IVP PAIN MILD TO MOD Last administered on 07/03/18at 21:27; Start 06/30/18 at 12:30 Hydromorphone HCl (Dilaudid) 4 mg PRN Q4HRS PRN IVP PAIN SEVERE Last administered on 07/05/18 07:17; Start 06/30/18 at 12:30 Ondansetron HCl (Zofran) 4 mg PRN Q6HRS PRN IV NAUSEA/VOMITING Last administered on 07/01/18at 16:32; Start 06/30/18 at 12:30 Amlodipine Besylate (Norvasc) 5 mg DAILY PO Last administered on 07/01/18 08: 35; Start 07/01/18 at 09:00; Stop 07/01/18 at 11:04; Status DC Trazodone HCl (Desyrel) 50 mg PRN QHS PRN PO INSOMNIA; Start 06/30/18 at 12:30 Sertraline HCl (Zoloft) 50 mg DAILY PO Last administered on 07/05/18 09:04; Start 07/01/18 at 09:00 Zinc Oxide (Zinc Oxide 20% Topical) 1 sang BID TP Last administered on at 21:12; Start 06/30/18 at 21:00 Lorazepam (Ativan) 0.5 mg PRN Q6HRS PRN PO ANXIETY / AGITATION Last administered on 07/05/18 05:25; Start 06/30/18 at 12:30 Acetaminophen (Tylenol) 650 mg PRN Q6HRS PRN PO MILD PAIN / TEMP Last administered on 07/01/18 14:50; Start 06/30/18 at 12:30 Potassium Chloride 40 meq/ Dextrose/Sodium Chloride 1,020 ml @ 75 mls/hr [id number] IV Last administered on 07/01/18at 10:43; Start 06/30/18 at 14:00; Stop 07/01/18 at 21:59; Status DC Lidocaine HCl (Xylocaine 2% Topical 30gm Tube) 1 sang BID TP Last administered on 07/04/18at 21:12; Start 06/30/18 at 21:00 Sodium Chloride 200 meq/Sodium Acetate 20 meq/ Potassium Chloride 120 meq/ Potassium Phosphate 6.8 mmol/Magnesium Sulfate 28 meq/ Calcium Gluconate 10 meq / Multivitamins 10 ml/Chromium/ Copper/Manganese/ Seleni/Zn 1 ml/ Total Parenteral Nutrition/Amino Acids/Dextrose/ Fat Emuls... 2,040 ml @ 85 mls/hr TPN CONT IV Last administered on 07/01/18at 22:33; Start 07/01/18 at 22:00; Stop 07/02/18 at 21:59; Status DC Info (Tpn Per Pharmacy) 1 each PRN DAILY PRN MC SEE COMMENTS Last administered on 07/03/18at 12:25; Start 07/01/18 at 13:00; Stop 07/04/18 at 10:29; Status DC Diphenhydramine HCl (Benadryl) 25 mg PRN Q6HRS PRN PO ITCHING Last administered on 07/03/18at 04:38; Start 07/02/18 at 05:00 Sodium Chloride 200 meq/Sodium Acetate 20 meq/ Potassium Chloride 120 meq/ Potassium Phosphate 6.8 mmol/Magnesium Sulfate 28 meq/ Calcium Gluconate 10 meq / Multivitamins 10 ml/Chromium/ Copper/Manganese/ Seleni/Zn 1 ml/ Total Parenteral Nutrition/Amino Acids/Dextrose/ Fat Emuls... 2,040 ml @ 85 mls/hr TPN CONT IV Last administered on 07/02/18at 22:04; Start 07/02/18 at 22:00; Stop 07/03/18 at 21:59; Status DC Nystatin (Nystop) 1 sang BID TP Last administered on 07/04/18at 21:32; Start at 11:00 Nystatin (Nystop) 1 sang BID TP ; Start 07/03/18 at 21:00; Stop 07/10/18 at 20:59 ; Status UNV Sodium Phosphate 15 mmol/Dextrose 255 ml @ 63.75 mls/ hr 1X ONCE IV Last administered on 07/03/18at 13:01; Start 07/03/18 at 13:00; Stop 07/03/18 at 16:59 ; Status DC Sodium Chloride 200 meq/Sodium Acetate 20 meq/ Sodium Phosphate 10 mmol/ Potassium Chloride 100 meq/ Potassium Phosphate 6.8 mmol/Magnesium Sulfate 28 meq/ Calcium Gluconate 10 meq/ Multivitamins 10 ml/Chromium/ Copper/Manganese/ Seleni/Zn 1 ml/ Total Parenteral Nutrition/Amino Acids/Dextro... 2,040 ml @ 85 mls/hr TPN CONT IV Last administered on 07/03/18at 23:23; Start 07/03/18 at 22: 00; Stop 07/04/18 at 21:59; Status DC Dextrose/Sodium Chloride 1,000 ml @ 80 mls/hr [id number] IV Last administered on 07/05/18at 00:05; Start 07/04/18 at 10:30 Sodium Polystyrene Sulfonate (Kayexalate) 30 gm 1X ONCE PO Last administered on 07/04/18at 11:45; Start 07/04/18 at 10:30; Stop 07/04/18 at 10:37; Status DC Furosemide (Lasix) 40 mg 1X ONCE IVP Last administered on 07/04/18at 11:43; Start 07/04/18 at 10:30; Stop 07/04/18 at 10:36; Status DC Active Scripts Active Ambien (Zolpidem Tartrate) 5 Mg Tablet 5 Mg PO PRN QHS PRN 30 Days [Tpn Per Pharmacy] 1 EACH Each 1 Each MC PRN DAILY PRN TPN at 85cc/hour [Pantoprazole] 40 MG Tablet.dr 40 Mg PO DAILYAC Amlodipine Besylate 10 Mg Tablet 5 Mg PO DAILY Tylenol (Acetaminophen) 325 Mg Tablet 650 Mg PO PRN Q6HRS PRN 30 Days Sertraline Hcl 50 Mg Tablet 50 Mg PO DAILY 30 Days Lidocaine 35.44 Gm Oint...g. 1 Sang TP BID Reported Zofran Odt (Ondansetron) 4 Mg Tab.rapdis 1 Tab SL PRN Q8HRS PRN Zinc Oxide 56.7 Gm Oint...g. 56.7 Gm TP PRN BID Dilaudid (Hydromorphone Hcl) 2 Mg Tablet 1 Tab PO PRN QID PRN Lorazepam 0.5 Mg Tablet 0.5 Mg PO Q6HRS PRN Vitals/I & O Vital Sign - Last 24 Hours 07/04/18 07/04/18 07/04/18 07/04/18 11:20 15:50 16:20 19:15 Temp 98.1 97.6 98.1 97.6 Pulse 91 103 Resp 18 16 16 18 B/P (MAP) 178/84 (115) 166/50 (88) Pulse Ox 99 99 99 100 O2 Delivery Room Air Room Air Room Air 07/04/18 07/04/18 07/04/1819 20:14 21:11 23:23 02:47 Temp 98.2 98.2 Pulse 93 Resp 16 B/P (MAP) 154/83 (106) Pulse Ox 99 O2 Delivery Room Air Room Air Room Air Room Air 07/05/18 07/05/18 07/05/18 07/05/18 03:34 03:40 07:00 07:17 Temp 97.7 97.9 97.7 97.9 Pulse 86 89 Resp 16 16 B/P (MAP) 148/81 (103) 147/75 (99) Pulse Ox 93 98 O2 Delivery Room Air Room Air Room Air Room Air 07/05/18 09:30 O2 Delivery Room Air Intake and Output 07/04/18 07/04/18 07/05/18 15:01 23:01 07:01 Intake Total 220 ml 100 ml 700 ml Output Total 1 ml 600 ml 400 ml Balance 219 ml -500 ml 300 ml Nutrition Consultation Dietary Evaluation: Recommendations by RD: PPN/TPN Comments: continue with gi soft diet and Home TPN Expected Outcomes/Goals: wt maintainance Malnutrition Findings: Body Fat Depletion (Non Severe: Mild Depletion Weight Status: Appropriate BENITA LUTZ MD Jul 05, 2018 10:25
--- NOTE | 2018-07-05 10:39 | PDOC ---
Objective: Objective: In the shower - staff says ate 100% of breakfast and had a stool this morning. Vital Signs: Vital Signs Date Time Temp Pulse Resp B/P (MAP) Pulse Ox O2 Delivery O2 Flow Rate FiO2 07/05/18 09:30 Room Air 07/05/18 07:00 97.9 89 16 147/75 (99) 98 97.9 Labs: Laboratory Tests Test 07/04/18 11:41 07/04/18 18:19 07/05/18 05:15 07/05/18 05:31 Glucose (Fingerstick) 116 mg/dL 99 mg/dL 128 mg/dL Sodium Level 135 mmol/L Potassium Level 4.5 mmol/L Chloride Level 103 mmol/L Carbon Dioxide Level 24 mmol/L Anion Gap 8 Blood Urea Nitrogen 20 mg/dL Creatinine 0.8 mg/dL Estimated GFR (Cockcroft-Gault) 87.7 Glucose Level 160 mg/dL Calcium Level 9.0 mg/dL Magnesium Level 1.6 mg/dL PE: in shower A/P: Chronic fistulae, chronic anemia -- Stable GI-garcia. MIESHA RICO Jul 05, 2018 10:39
[2018-07-05] MEDS: TPN PER PHARMACY MC PRN (10:45)
--- NOTE | 2018-07-05 10:45 | NUR ---
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 Height: 5 feet, 3 inches Weight: 56.345007 kg Current diet: GI SOFT LABS: Sodium: 135 Potassium: 4.5 Chloride: 103 Calcium: 9.0 Corrected Calcium: 10.52 Magnesium: 1.6 CO2: 20 SCr: 0.8 Glucose: 128-160 Albumin: 2.1 AST: 13 ALT: 14 TPN FORMULA: TPN TYPE: Central Continuous AMINO ACIDS: 90 gm DEXTROSE: 275 gm LIPIDS: 35 gm SODIUM CHLORIDE: 200 mEq SODIUM ACETATE: 20 mEq SODIUM PHOSPHATE: 10 mmol POTASSIUM CHLORIDE: 80 mEq POTASSIUM ACETATE: - mEq POTASSIUM PHOSPHATE: 6.8 mmol MAGNESIUM: 28 mEq CALCIUM: 10 mEq INSULIN: - units MULTIPLE VITAMIN: 10 ml TRACE ELEMENTS: MTE5 1ML ml(s) TPN PLAN: TPN held 07/[address] Cisneros's order for hyperkalemia with D5NS run instead. Usual home TPN to restart tonight with 80 meq KCL instead of 100 meq and DC IVF. Labs in AM. R: Continue TPN as above. Will monitor electrolytes, glucose, and tolerance to TPN. CICI DURAN [facility] [place], 07/05/18 [id number]
[2018-07-05 11:00] VITALS: BP 152/73
[2018-07-05] MEDS ORDERED: MAGNESIUM SULFATE 2GM 50 ML IV ONE (11:00)
[2018-07-05] MEDS: NYSTATIN TOPICAL POWDER 15GM BOTTLE. TP SCH ×2 (13:17→21:00)
[2018-07-05 15:00] VITALS: BP 131/69
[2018-07-05] MEDS: ONDANSETRON PF 4 MG/2 ML VIAL. IV PRN (17:52)
[2018-07-05 20:00] VITALS: BP 152/89
[2018-07-05] MEDS ORDERED: TOTAL PARENTERAL NUTRITION IV SCH ×12 (22:00)
[2018-07-05] MEDS ORDERED: DEXTROSE 70% IV SCH ×12 (22:00)
[2018-07-05] MEDS ORDERED: [UNRECOGNIZED DRUG - OTHER] IV SCH ×12 (22:00)
[2018-07-05] MEDS ORDERED: AMINO ACID IV SCH ×12 (22:00)
[2018-07-05 22:56] VITALS: BP 164/68
[2018-07-06] MEDS: HYDROmorphone 2 MG/ML VIAL IVP PRN ×4 (03:04→20:09)
[2018-07-06 03:35] VITALS: BP 148/72
[2018-07-06] MEDS: LORazepam 0.5 MG TABLET PO PRN ×2 (06:47→15:25)
[2018-07-06 07:20] LABS: BASO # 0.1 x10^3/uL (0.0-0.2); BASO % 2 % (0-3); EOS # 0.5 x10^3/uL (0.0-0.7); EOS % 10 % (0-3); HEMATOCRIT 22.8 % (36.0-47.0); HEMOGLOBIN 7.2 g/dL (12.0-15.5); LYMPH # 1.1 x10^3/uL (1.0-4.8); LYMPH % 22 % (24-48); MEAN CORPUSCULAR HEMOGLOBIN 25 pg (25-35); MEAN CORPUSCULAR HGB CONC 32 g/dL (31-37); MEAN CORPUSCULAR VOLUME 79 fL (79-100); MONO # 0.3 x10^3/uL (0.0-1.1); MONO % 7 % (0-9); NEUT # 2.9 x10^3uL (1.8-7.7); NEUT % 60 % (31-73); PLATELET COUNT 321 x10^3/uL (140-400); RED BLOOD COUNT 2.87 x10^6/uL (3.50-5.40); RED CELL DISTRIBUTION WIDTH 18.3 % (11.5-14.5); WHITE BLOOD COUNT 4.9 x10^3/uL (4.0-11.0)
[2018-07-06 07:24] LABS: CALCIUM 8.9 mg/dL (8.5-10.1); CREATININE 0.7 mg/dL (0.6-1.0); GFR 102.3; POTASSIUM 4.9 mmol/L (3.5-5.1)
[2018-07-06 07:28] VITALS: BP 146/81
[2018-07-06] MEDS: SERTRALINE 50 MG TABLET. PO SCH (08:25)
[2018-07-06] MEDS: ZINC OXIDE 20% TOPICAL OINTMENT 28GM TUBE. TP SCH ×2 (08:26→20:10)
[2018-07-06] MEDS: NYSTATIN TOPICAL POWDER 15GM BOTTLE. TP SCH ×2 (08:28→20:10)
[2018-07-06] MEDS: LIDOCAINE 2% TOPICAL JELLY 30GM TUBE. TP SCH ×2 (08:28→20:11)
--- NOTE | 2018-07-06 09:28 | PDOC ---
Subjective: Subjective: Doing okay, ate some cottage cheese, says her feet are still swollen but she might get to go home tomorrow. Objective: Vital Signs: Vital Signs Date Time Temp Pulse Resp B/P (MAP) Pulse Ox O2 Delivery O2 Flow Rate FiO2 07/06/18 08:26 18 Room Air 07/06/18 07:28 98.0 90 146/81 (102) 100 98.0 Labs: Laboratory Tests Test 07/06/18 06:06 07/06/18 06:46 Glucose (Fingerstick) 96 mg/dL White Blood Count 4.9 x10^3/uL Red Blood Count 2.87 x10^6/uL Hemoglobin 7.2 g/dL Hematocrit 22.8 % Mean Corpuscular Volume 79 fL Mean Corpuscular Hemoglobin 25 pg Mean Corpuscular Hemoglobin Concent 32 g/dL Red Cell Distribution Width 18.3 % Platelet Count 321 x10^3/uL Neutrophils (%) (Auto) 60 % Lymphocytes (%) (Auto) 22 % Monocytes (%) (Auto) 7 % Eosinophils (%) (Auto) 10 % Basophils (%) (Auto) 2 % Neutrophils # (Auto) 2.9 x10^3uL Lymphocytes # (Auto) 1.1 x10^3/uL Monocytes # (Auto) 0.3 x10^3/uL Eosinophils # (Auto) 0.5 x10^3/uL Basophils # (Auto) 0.1 x10^3/uL Sodium Level 140 mmol/L Potassium Level 4.9 mmol/L Chloride Level 107 mmol/L Carbon Dioxide Level 27 mmol/L Anion Gap 6 Blood Urea Nitrogen 18 mg/dL Creatinine 0.7 mg/dL Estimated GFR (Cockcroft-Gault) 102.3 Glucose Level 70 mg/dL Calcium Level 8.9 mg/dL Magnesium Level 2.0 mg/dL PE: GEN: NAD LUNGS: room air ABD: covered with towels EXTREMITY: bilateral pedal edema NEURO/PSYCH: A & O �3 A/P: Chronic fistulae and anemia -- Hgb to 7.2 today, no bleeding. Continue same per GI. MIESHA RICO Jul 06, 2018 09:28
--- NOTE | 2018-07-06 10:48 | PDOC ---
PROGRESS NOTES Subjective Subjective lab reviewed. hgb lower 7.2. feels okay. TPN resumed last night.blood pressure is high and will start amlodipine Objective Objective Vital Signs Date Time Temp Pulse Resp B/P (MAP) Pulse Ox O2 Delivery O2 Flow Rate FiO2 07/06/18 08:26 18 Room Air 07/06/18 07:28 98.0 90 146/81 (102) 100 98.0 Intake and Output 07/06/18 07:01 Intake Total 1240 ml Output Total 400 ml Balance 840 ml Intake Oral 1240 ml Output Urine Total 400 ml # Voids 2 # Bowel Movements 1 Physical Exam Abdomen: Soft, Other (EC fistula) Heart: Regular rate Extremities: No clubbing, Other (2 plus edema LLE and 1 plus edema RLE) General: Alert, Oriented X3 HEENT: Atraumatic Lungs: Clear to auscultation Neuro: Normal speech Psych/Mental Status: Mental status NL Skin: No rashes Assessment Assessment Problems Severe hypokalemia. resolved 2. hypomagnesemia. 3. Mild hyponatremia. resolved 4. Anemia of chronic disease. 5. Enterocutaneous fistula. 6. Enterovesical fistula. 7. Severe protein calorie malnutrition. 8. Hypertension.BP high 9. Chronic abdominal pain secondary to adhesions hyperkalemia resolved leg edema Medical Problems: (1) Low magnesium level Status: Acute (2) Low serum potassium Status: Acute Plan Plan of Care continue TPN lab tomorrow follow hemoglobin and potassium and magnesium start amlodipine Comment Review of Relevant I have reviewed the following items lucila (where applicable) has been applied. Labs Laboratory Tests Test 07/04/18 11:41 07/04/18 18:19 07/05/18 05:15 07/05/18 05:31 Glucose (Fingerstick) 116 mg/dL (70-99) 99 mg/dL (70-99) 128 mg/dL (70-99) Sodium Level 135 mmol/L (136-145) Potassium Level 4.5 mmol/L (3.5-5.1) Chloride Level 103 mmol/L (98-107) Carbon Dioxide Level 24 mmol/L (21-32) Anion Gap 8 (6-14) Blood Urea Nitrogen 20 mg/dL (7-20) Creatinine 0.8 mg/dL (0.6-1.0) Estimated GFR (Cockcroft-Gault) 87.7 Glucose Level 160 mg/dL (70-99) Calcium Level 9.0 mg/dL (8.5-10.1) Magnesium Level 1.6 mg/dL (1.8-2.4) Test 07/06/18 06:06 07/06/18 06:46 Glucose (Fingerstick) 96 mg/dL (70-99) White Blood Count 4.9 x10^3/uL (4.0-11.0) Red Blood Count 2.87 x10^6/uL (3.50-5.40) Hemoglobin 7.2 g/dL (12.0-15.5) Hematocrit 22.8 % (36.0-47.0) Mean Corpuscular Volume 79 fL (79-100) Mean Corpuscular Hemoglobin 25 pg (25-35) Mean Corpuscular Hemoglobin Concent 32 g/dL (31-37) Red Cell Distribution Width 18.3 % (11.5-14.5) Platelet Count 321 x10^3/uL (140-400) Neutrophils (%) (Auto) 60 % (31-73) Lymphocytes (%) (Auto) 22 % (24-48) Monocytes (%) (Auto) 7 % (0-9) Eosinophils (%) (Auto) 10 % (0-3) Basophils (%) (Auto) 2 % (0-3) Neutrophils # (Auto) 2.9 x10^3uL (1.8-7.7) Lymphocytes # (Auto) 1.1 x10^3/uL (1.0-4.8) Monocytes # (Auto) 0.3 x10^3/uL (0.0-1.1) Eosinophils # (Auto) 0.5 x10^3/uL (0.0-0.7) Basophils # (Auto) 0.1 x10^3/uL (0.0-0.2) Sodium Level 140 mmol/L (136-145) Potassium Level 4.9 mmol/L (3.5-5.1) Chloride Level 107 mmol/L (98-107) Carbon Dioxide Level 27 mmol/L (21-32) Anion Gap 6 (6-14) Blood Urea Nitrogen 18 mg/dL (7-20) Creatinine 0.7 mg/dL (0.6-1.0) Estimated GFR (Cockcroft-Gault) 102.3 Glucose Level 70 mg/dL (70-99) Calcium Level 8.9 mg/dL (8.5-10.1) Magnesium Level 2.0 mg/dL (1.8-2.4) Laboratory Tests Test 07/06/18 06:06 07/06/18 06:46 Glucose (Fingerstick) 96 mg/dL (70-99) White Blood Count 4.9 x10^3/uL (4.0-11.0) Red Blood Count 2.87 x10^6/uL (3.50-5.40) Hemoglobin 7.2 g/dL (12.0-15.5) Hematocrit 22.8 % (36.0-47.0) Mean Corpuscular Volume 79 fL (79-100) Mean Corpuscular Hemoglobin 25 pg (25-35) Mean Corpuscular Hemoglobin Concent 32 g/dL (31-37) Red Cell Distribution Width 18.3 % (11.5-14.5) Platelet Count 321 x10^3/uL (140-400) Neutrophils (%) (Auto) 60 % (31-73) Lymphocytes (%) (Auto) 22 % (24-48) Monocytes (%) (Auto) 7 % (0-9) Eosinophils (%) (Auto) 10 % (0-3) Basophils (%) (Auto) 2 % (0-3) Neutrophils # (Auto) 2.9 x10^3uL (1.8-7.7) Lymphocytes # (Auto) 1.1 x10^3/uL (1.0-4.8) Monocytes # (Auto) 0.3 x10^3/uL (0.0-1.1) Eosinophils # (Auto) 0.5 x10^3/uL (0.0-0.7) Basophils # (Auto) 0.1 x10^3/uL (0.0-0.2) Sodium Level 140 mmol/L (136-145) Potassium Level 4.9 mmol/L (3.5-5.1) Chloride Level 107 mmol/L (98-107) Carbon Dioxide Level 27 mmol/L (21-32) Anion Gap 6 (6-14) Blood Urea Nitrogen 18 mg/dL (7-20) Creatinine 0.7 mg/dL (0.6-1.0) Estimated GFR (Cockcroft-Gault) 102.3 Glucose Level 70 mg/dL (70-99) Calcium Level 8.9 mg/dL (8.5-10.1) Magnesium Level 2.0 mg/dL (1.8-2.4) Microbiology 06/30/18 Urine Culture - Final, Complete 06/30/18 Urine Culture Result 1 (ROYA) - Final, Complete 06/30/18 Antimicrobic Susceptibility - Final, Complete Medications Current Medications Piperacillin Sod/ Tazobactam Sod (Zosyn Per Pharmacy) 1 each PRN DAILY PRN MC SEE COMMENTS; Start 06/30/18 at 10:30; Stop 06/30/18 at 12:46; Status DC Piperacillin Sod/ Tazobactam Sod 3.375 gm/Sodium Chloride 50 ml @ 100 mls/hr ONCE ONCE IV Last administered on 06/30/18at 11:03; Start 06/30/18 at 10:30; Stop 06/30/18 at 10:59; Status DC Sodium Chloride 500 ml @ 500 mls/hr 1X ONCE IV ; Start 06/30/18 at 10:30; Stop 06/30/18 at 10:55; Status DC Fentanyl Citrate (Fentanyl 2ml Vial) 25 mcg 1X PRN PRN IV SEVERE PAIN Last administered on 06/30/18at 10:56; Start 06/30/18 at 10:45; Stop 07/01/18 at 11:04 ; Status DC Potassium Chloride/Sodium Chloride 1,000 ml @ 75 mls/hr 1X ONCE IV Last administered on 06/30/18at 11:03; Start 06/30/18 at 11:00; Stop 07/01/18 at 00:19 ; Status DC Magnesium Sulfate 50 ml @ 25 mls/hr 1X ONCE IV Last administered on 06/30/18at 20:41; Start 06/30/18 at 11:45; Stop 06/30/18 at 13:44; Status DC Sodium Chloride 1,000 ml @ 100 mls/hr Q10H IV ; Start 06/30/18 at 11:45; Stop 06/30/18 at 11:46; Status DC Piperacillin Sod/ Tazobactam Sod 3.375 gm/Sodium Chloride 50 ml @ 100 mls/hr Q6HRS IV ; Start 06/30/18 at 18:00; Stop 06/30/18 at 18:00; Status DC Magnesium Sulfate/ Dextrose 100 ml @ 25 mls/hr 1X ONCE IV Last administered on 06/30/18at 13:47; Start 06/30/18 at 13:00; Stop 06/30/18 at 16:59; Status DC Potassium Chloride/Sodium Chloride 1,000 ml @ 75 mls/hr [id number] IV ; Start at 12:30; Status UNV Potassium Chloride/Water 50 ml @ 50 mls/hr Q1H IV Last administered on at 18:16; Start 06/30/18 at 13:00; Stop 06/30/18 at 14:59; Status DC Hydromorphone HCl (Dilaudid) 2 mg PRN Q4HRS PRN IVP PAIN MILD TO MOD Last administered on 07/06/18 08:26; Start 06/30/18 at 12:30 Hydromorphone HCl (Dilaudid) 4 mg PRN Q4HRS PRN IVP PAIN SEVERE Last administered on 07/05/18at 17:51; Start 06/30/18 at 12:30 Ondansetron HCl (Zofran) 4 mg PRN Q6HRS PRN IV NAUSEA/VOMITING Last administered on 07/05/18 17:52; Start 06/30/18 at 12:30 Amlodipine Besylate (Norvasc) 5 mg DAILY PO Last administered on 07/01/18at 08: 35; Start 07/01/18 at 09:00; Stop 07/01/18 at 11:04; Status DC Trazodone HCl (Desyrel) 50 mg PRN QHS PRN PO INSOMNIA; Start 06/30/18 at 12:30 Sertraline HCl (Zoloft) 50 mg DAILY PO Last administered on 07/06/18 08:25; Start 07/01/18 at 09:00 Zinc Oxide (Zinc Oxide 20% Topical) 1 sang BID TP Last administered on 08:26; Start 06/30/18 at 21:00 Lorazepam (Ativan) 0.5 mg PRN Q6HRS PRN PO ANXIETY / AGITATION Last administered on 07/06/18 06:47; Start 06/30/18 at 12:30 Acetaminophen (Tylenol) 650 mg PRN Q6HRS PRN PO MILD PAIN / TEMP Last administered on 07/01/18 14:50; Start 06/30/18 at 12:30 Potassium Chloride 40 meq/ Dextrose/Sodium Chloride 1,020 ml @ 75 mls/hr [id number] IV Last administered on 07/01/18at 10:43; Start 06/30/18 at 14:00; Stop 07/01/18 at 21:59; Status DC Lidocaine HCl (Xylocaine 2% Topical 30gm Tube) 1 sang BID TP Last administered on 07/06/18at 08:28; Start 06/30/18 at 21:00 Sodium Chloride 200 meq/Sodium Acetate 20 meq/ Potassium Chloride 120 meq/ Potassium Phosphate 6.8 mmol/Magnesium Sulfate 28 meq/ Calcium Gluconate 10 meq / Multivitamins 10 ml/Chromium/ Copper/Manganese/ Seleni/Zn 1 ml/ Total Parenteral Nutrition/Amino Acids/Dextrose/ Fat Emuls... 2,040 ml @ 85 mls/hr TPN CONT IV Last administered on 07/01/18at 22:33; Start 07/01/18 at 22:00; Stop 07/02/18 at 21:59; Status DC Info (Tpn Per Pharmacy) 1 each PRN DAILY PRN MC SEE COMMENTS Last administered on 07/03/18at 12:25; Start 07/01/18 at 13:00; Stop 07/04/18 at 10:29; Status DC Diphenhydramine HCl (Benadryl) 25 mg PRN Q6HRS PRN PO ITCHING Last administered on 07/03/18at 04:38; Start 07/02/18 at 05:00 Sodium Chloride 200 meq/Sodium Acetate 20 meq/ Potassium Chloride 120 meq/ Potassium Phosphate 6.8 mmol/Magnesium Sulfate 28 meq/ Calcium Gluconate 10 meq / Multivitamins 10 ml/Chromium/ Copper/Manganese/ Seleni/Zn 1 ml/ Total Parenteral Nutrition/Amino Acids/Dextrose/ Fat Emuls... 2,040 ml @ 85 mls/hr TPN CONT IV Last administered on 07/02/18at 22:04; Start 07/02/18 at 22:00; Stop 07/03/18 at 21:59; Status DC Nystatin (Nystop) 1 sang BID TP Last administered on 1/23/19at 08:28; Start at 11:00 Nystatin (Nystop) 1 sang BID TP ; Start 07/03/18 at 21:00; Stop 07/10/18 at 20:59 ; Status UNV Sodium Phosphate 15 mmol/Dextrose 255 ml @ 63.75 mls/ hr 1X ONCE IV Last administered on 07/03/18at 13:01; Start 07/03/18 at 13:00; Stop 07/03/18 at 16:59 ; Status DC Sodium Chloride 200 meq/Sodium Acetate 20 meq/ Sodium Phosphate 10 mmol/ Potassium Chloride 100 meq/ Potassium Phosphate 6.8 mmol/Magnesium Sulfate 28 meq/ Calcium Gluconate 10 meq/ Multivitamins 10 ml/Chromium/ Copper/Manganese/ Seleni/Zn 1 ml/ Total Parenteral Nutrition/Amino Acids/Dextro... 2,040 ml @ 85 mls/hr TPN CONT IV Last administered on 07/03/18at 23:23; Start 07/03/18 at 22: 00; Stop 07/04/18 at 21:59; Status DC Dextrose/Sodium Chloride 1,000 ml @ 80 mls/hr [id number] IV Last administered on 07/05/18at 00:05; Start 07/04/18 at 10:30; Stop 07/05/18 at 21:59; Status DC Sodium Polystyrene Sulfonate (Kayexalate) 30 gm 1X ONCE PO Last administered on 07/04/18at 11:45; Start 07/04/18 at 10:30; Stop 07/04/18 at 10:37; Status DC Furosemide (Lasix) 40 mg 1X ONCE IVP Last administered on 07/04/18at 11:43; Start 07/04/18 at 10:30; Stop 07/04/18 at 10:36; Status DC Magnesium Sulfate 50 ml @ 25 mls/hr 1X ONCE IV Last administered on 07/05/18at 11:45; Start 07/05/18 at 11:00; Stop 07/05/18 at 12:59; Status DC Info (Tpn Per Pharmacy) 1 each PRN DAILY PRN MC SEE COMMENTS Last administered on 07/05/18at 10:45; Start 07/05/18 at 10:30 Sodium Chloride 200 meq/Sodium Acetate 20 meq/ Sodium Phosphate 10 mmol/ Potassium Chloride 80 meq/ Potassium Phosphate 6.8 mmol/Magnesium Sulfate 28 meq / Calcium Gluconate 10 meq/ Multivitamins 10 ml/Chromium/ Copper/Manganese/ Seleni/Zn 1 ml/ Total Parenteral Nutrition/Amino Acids/Dextro... 1,920 ml @ 80 mls/hr TPN CONT IV Last administered on 07/05/18at 22:29; Start 07/05/18 at 22: 00; Stop 07/06/18 at 21:59 Active Scripts Active Ambien (Zolpidem Tartrate) 5 Mg Tablet 5 Mg PO PRN QHS PRN 30 Days [Tpn Per Pharmacy] 1 EACH Each 1 Each MC PRN DAILY PRN TPN at 85cc/hour [Pantoprazole] 40 MG Tablet.dr 40 Mg PO DAILYAC Amlodipine Besylate 10 Mg Tablet 5 Mg PO DAILY Tylenol (Acetaminophen) 325 Mg Tablet 650 Mg PO PRN Q6HRS PRN 30 Days Sertraline Hcl 50 Mg Tablet 50 Mg PO DAILY 30 Days Lidocaine 35.44 Gm Oint...g. 1 Sang TP BID Reported Zofran Odt (Ondansetron) 4 Mg Tab.rapdis 1 Tab SL PRN Q8HRS PRN Zinc Oxide 56.7 Gm Oint...g. 56.7 Gm TP PRN BID Dilaudid (Hydromorphone Hcl) 2 Mg Tablet 1 Tab PO PRN QID PRN Lorazepam 0.5 Mg Tablet 0.5 Mg PO Q6HRS PRN Vitals/I & O Vital Sign - Last 24 Hours 07/05/18 07/05/18 07/05/18 07/05/18 11:00 15:00 17:51 20:00 Temp 98.8 98.2 98.1 98.8 98.2 98.1 Pulse 102 92 108 Resp 16 16 16 B/P (MAP) 152/73 (99) 131/69 (89) 152/89 (110) Pulse Ox 100 99 99 100 O2 Delivery Room Air Room Air Room Air Room Air 07/05/18 07/05/18 07/05/18 07/06/18 20:13 22:30 22:56 03:04 Temp 97.4 97.4 Pulse 93 Resp 16 B/P (MAP) 164/68 (100) Pulse Ox 100 O2 Delivery Room Air Room Air Room Air Room Air 1/07/06/18 07/06/18 07/06/18 03:35 03:47 07:28 08:00 Temp 98.2 98.0 98.2 98.0 Pulse 92 90 Resp 16 18 B/P (MAP) 148/72 (97) 146/81 (102) Pulse Ox 100 100 O2 Delivery Room Air Room Air Room Air Room Air 07/06/18 08:26 Resp 18 O2 Delivery Room Air Intake and Output 07/05/18 07/05/18 07/06/18 15:01 23:01 07:01 Intake Total 400 ml 840 ml Output Total 400 ml Balance 400 ml 440 ml Nutrition Consultation Dietary Evaluation: Recommendations by RD: PPN/TPN Comments: continue with gi soft diet and Home TPN Expected Outcomes/Goals: wt maintainance Malnutrition Findings: Body Fat Depletion (Non Severe: Mild Depletion Weight Status: Appropriate BENITA LUTZ MD Jul 06, 2018 10:48
[2018-07-06 11:12] VITALS: BP 146/78
[2018-07-06] MEDS: amLODIPine BESYLATE 5 MG TABLET PO SCH (12:21)
[2018-07-06] MEDS: TPN PER PHARMACY MC PRN (12:43)
--- NOTE | 2018-07-06 12:44 | NUR ---
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 Height: 5 feet, 3 inches Weight: [id number] kg Current diet: GI SOFT LABS: Sodium: 140 Potassium: 4.9 Chloride: 107 Calcium: 8.9 Corrected Calcium: 10.50 Magnesium: 2.0 CO2: 27 SCr: 0.7 Glucose: 70-92 Albumin: 2.0 AST: 13 ALT: 14 TPN FORMULA: TPN TYPE: Central Continuous AMINO ACIDS: 90 gm DEXTROSE: 275 gm LIPIDS: 35 gm SODIUM CHLORIDE: 200 mEq SODIUM ACETATE: 20 mEq SODIUM PHOSPHATE: 10 mmol POTASSIUM CHLORIDE: 80 mEq POTASSIUM ACETATE: - mEq POTASSIUM PHOSPHATE: 6.8 mmol MAGNESIUM: 28 mEq CALCIUM: 10 mEq INSULIN: - units MULTIPLE VITAMIN: 10 ml TRACE ELEMENTS: MTE5 1ML ml(s) TPN PLAN: No rec rec'd from Dr. Cisneros today and labs appear stable. No changes to TPN. BMP in AM. R: Continue TPN ABOVE. Will monitor electrolytes, glucose, and tolerance to TPN. CICI DURAN [facility], 07/06/18 [id number]
[2018-07-06] MEDS: diphenhydrAMINE HCL 25 MG CAPSULE PO PRN (15:25)
[2018-07-06 19:30] VITALS: BP 160/90
[2018-07-06] MEDS ORDERED: [UNRECOGNIZED DRUG - OTHER] IV SCH ×12 (22:00)
[2018-07-06] MEDS ORDERED: AMINO ACID IV SCH ×12 (22:00)
[2018-07-06] MEDS ORDERED: DEXTROSE 70% IV SCH ×12 (22:00)
[2018-07-06] MEDS ORDERED: TOTAL PARENTERAL NUTRITION IV SCH ×12 (22:00)
[2018-07-06 23:09] VITALS: BP 102/68
[2018-07-07] VITALS (12 sets, daily range): BP systolic 122–165; BP diastolic 58–88
[2018-07-07] MEDS: HYDROmorphone 2 MG/ML VIAL IVP PRN ×6 (00:27→22:32)
[2018-07-07 06:38] LABS: BASO # 0.1 x10^3/uL (0.0-0.2); BASO % 1 % (0-3); EOS # 0.5 x10^3/uL (0.0-0.7); EOS % 10 % (0-3); HEMATOCRIT 21.2 % (36.0-47.0); LYMPH # 1.1 x10^3/uL (1.0-4.8); LYMPH % 22 % (24-48); MEAN CORPUSCULAR HEMOGLOBIN 25 pg (25-35); MEAN CORPUSCULAR HGB CONC 32 g/dL (31-37); MEAN CORPUSCULAR VOLUME 79 fL (79-100); MONO # 0.4 x10^3/uL (0.0-1.1); MONO % 9 % (0-9); NEUT # 2.8 x10^3uL (1.8-7.7); NEUT % 58 % (31-73); PLATELET COUNT 323 x10^3/uL (140-400); RED BLOOD COUNT 2.69 x10^6/uL (3.50-5.40); RED CELL DISTRIBUTION WIDTH 18.5 % (11.5-14.5); WHITE BLOOD COUNT 4.9 x10^3/uL (4.0-11.0)
[2018-07-07 06:50] LABS: CREATININE 0.8 mg/dL (0.6-1.0); GFR 87.7; MAGNESIUM 2.2 mg/dL (1.8-2.4); PHOSPHORUS 3.6 mg/dL (2.6-4.7); POTASSIUM 4.8 mmol/L (3.5-5.1)
[2018-07-07 06:52] LABS: HEMOGLOBIN 6.8 g/dL (12.0-15.5)
[2018-07-07] MEDS: SERTRALINE 50 MG TABLET. PO SCH (10:27)
[2018-07-07] MEDS: amLODIPine BESYLATE 5 MG TABLET PO SCH (10:27)
[2018-07-07] MEDS: LIDOCAINE 2% TOPICAL JELLY 30GM TUBE. TP SCH ×2 (10:35→21:00)
[2018-07-07] MEDS: ZINC OXIDE 20% TOPICAL OINTMENT 28GM TUBE. TP SCH ×2 (10:35→19:42)
[2018-07-07] MEDS: NYSTATIN TOPICAL POWDER 15GM BOTTLE. TP SCH ×2 (10:35→19:42)
--- NOTE | 2018-07-07 10:55 | PDOC ---
Subjective: Subjective: Feels fine, wonders why she's anemic, asks about symptoms of "iron poor blood." Objective: Objective: RN asked to make sure we are aware of anemia. Documented anemia since 05/2013 here - below baseline now though has dipped to 6s and 7s before. Iron deficiency noted in 2016. Last EGD in 2018, last colonoscopy in 2011. Vital Signs: Vital Signs Date Time Temp Pulse Resp B/P (MAP) Pulse Ox O2 Delivery O2 Flow Rate FiO2 07/07/18 10:27 86 162/77 07/07/18 07:44 98.2 18 100 Room Air 98.2 Labs: Laboratory Tests Test 07/06/18 11:49 07/06/18 23:24 07/07/18 05:34 07/07/18 06:22 Glucose (Fingerstick) 92 mg/dL 104 mg/dL 80 mg/dL White Blood Count 4.9 x10^3/uL Red Blood Count 2.69 x10^6/uL Hemoglobin 6.8 g/dL Hematocrit 21.2 % Mean Corpuscular Volume 79 fL Mean Corpuscular Hemoglobin 25 pg Mean Corpuscular Hemoglobin Concent 32 g/dL Red Cell Distribution Width 18.5 % Platelet Count 323 x10^3/uL Neutrophils (%) (Auto) 58 % Lymphocytes (%) (Auto) 22 % Monocytes (%) (Auto) 9 % Eosinophils (%) (Auto) 10 % Basophils (%) (Auto) 1 % Neutrophils # (Auto) 2.8 x10^3uL Lymphocytes # (Auto) 1.1 x10^3/uL Monocytes # (Auto) 0.4 x10^3/uL Eosinophils # (Auto) 0.5 x10^3/uL Basophils # (Auto) 0.1 x10^3/uL Sodium Level 139 mmol/L Potassium Level 4.8 mmol/L Chloride Level 107 mmol/L Carbon Dioxide Level 26 mmol/L Anion Gap 6 Blood Urea Nitrogen 23 mg/dL Creatinine 0.8 mg/dL Estimated GFR (Cockcroft-Gault) 87.7 Glucose Level 86 mg/dL Calcium Level 9.0 mg/dL Phosphorus Level 3.6 mg/dL Magnesium Level 2.2 mg/dL PE: GEN: NAD, sitting on edge of bed LUNGS: room air EXTREM: pedal edema NEURO/PSYCH: A & O �3, drowsy A/P: Chronic anemia -- Hgb worse today w/o bleeding - will review w/ Dr. Ovalle. MIESHA RICO Jul 07, 2018 10:55
--- NOTE | 2018-07-07 12:12 | PDOC ---
PROGRESS NOTES Subjective Subjective hgb 6.8 and was 7.2 yesterday. 2 units prbc ordered. denies bleeding or black or bloody stool. will order stool heme occult. afebrile urine culture grew 06/30 e. coli and has pyuria but has an enterovesical fistula. she did have a fever once temp 101.7 on 07/01 when I was out of town but has been afebrile since. WBC is normal,. denies dysuria. so will not rx e. coli in urine unless she spikes another fever, she denies cough, Objective Objective Vital Signs Date Time Temp Pulse Resp B/P (MAP) Pulse Ox O2 Delivery O2 Flow Rate FiO2 07/07/18 11:15 98.1 89 16 145/70 (95) 100 Room Air 98.1 Intake and Output 07/07/18 07:01 Intake Total 2500 ml Balance 2500 ml Intake Oral 2500 ml # Voids 10 # Bowel Movements 3 Physical Exam Abdomen: Soft, Other (EC fistula) Heart: Regular rate, Normal S1, Normal S2 Extremities: Other (2 plus edema left foot and trace edema right foot) General: Alert HEENT: Atraumatic Lungs: Clear to auscultation Neuro: Normal speech Psych/Mental Status: Mental status NL Skin: No rashes Assessment Assessment Problems Severe hypokalemia. resolved 2. hypomagnesemia. 3. Mild hyponatremia. resolved 4. Anemia of chronic disease. hgb lower 5. Enterocutaneous fistula. 6. Enterovesical fistula. 7. Severe protein calorie malnutrition. 8. Hypertension.BP high 9. Chronic abdominal pain secondary to adhesions hyperkalemia resolved leg edema E. coli in urine but has enterovesical fistula fever once 07/01 without recurrence. wbc normal Medical Problems: (1) Low magnesium level Status: Acute (2) Low serum potassium Status: Acute Plan Plan of Care transfuse 2 units prbc stool for occult blood GI on case continue TPN follow potassium and magnesium and hgb follow temperature lab tomorrow continue amlodipine Comment Review of Relevant I have reviewed the following items lucila (where applicable) has been applied. Labs Laboratory Tests Test 07/06/18 06:06 07/06/18 06:46 07/06/18 11:49 07/06/18 23:24 Glucose (Fingerstick) 96 mg/dL (70-99) 92 mg/dL (70-99) 104 mg/dL (70-99) White Blood Count 4.9 x10^3/uL (4.0-11.0) Red Blood Count 2.87 x10^6/uL (3.50-5.40) Hemoglobin 7.2 g/dL (12.0-15.5) Hematocrit 22.8 % (36.0-47.0) Mean Corpuscular Volume 79 fL (79-100) Mean Corpuscular Hemoglobin 25 pg (25-35) Mean Corpuscular Hemoglobin Concent 32 g/dL (31-37) Red Cell Distribution Width 18.3 % (11.5-14.5) Platelet Count 321 x10^3/uL (140-400) Neutrophils (%) (Auto) 60 % (31-73) Lymphocytes (%) (Auto) 22 % (24-48) Monocytes (%) (Auto) 7 % (0-9) Eosinophils (%) (Auto) 10 % (0-3) Basophils (%) (Auto) 2 % (0-3) Neutrophils # (Auto) 2.9 x10^3uL (1.8-7.7) Lymphocytes # (Auto) 1.1 x10^3/uL (1.0-4.8) Monocytes # (Auto) 0.3 x10^3/uL (0.0-1.1) Eosinophils # (Auto) 0.5 x10^3/uL (0.0-0.7) Basophils # (Auto) 0.1 x10^3/uL (0.0-0.2) Sodium Level 140 mmol/L (136-145) Potassium Level 4.9 mmol/L (3.5-5.1) Chloride Level 107 mmol/L (98-107) Carbon Dioxide Level 27 mmol/L (21-32) Anion Gap 6 (6-14) Blood Urea Nitrogen 18 mg/dL (7-20) Creatinine 0.7 mg/dL (0.6-1.0) Estimated GFR (Cockcroft-Gault) 102.3 Glucose Level 70 mg/dL (70-99) Calcium Level 8.9 mg/dL (8.5-10.1) Magnesium Level 2.0 mg/dL (1.8-2.4) Test 07/07/18 05:34 07/07/18 06:22 Glucose (Fingerstick) 80 mg/dL (70-99) White Blood Count 4.9 x10^3/uL (4.0-11.0) Red Blood Count 2.69 x10^6/uL (3.50-5.40) Hemoglobin 6.8 g/dL (12.0-15.5) Hematocrit 21.2 % (36.0-47.0) Mean Corpuscular Volume 79 fL (79-100) Mean Corpuscular Hemoglobin 25 pg (25-35) Mean Corpuscular Hemoglobin Concent 32 g/dL (31-37) Red Cell Distribution Width 18.5 % (11.5-14.5) Platelet Count 323 x10^3/uL (140-400) Neutrophils (%) (Auto) 58 % (31-73) Lymphocytes (%) (Auto) 22 % (24-48) Monocytes (%) (Auto) 9 % (0-9) Eosinophils (%) (Auto) 10 % (0-3) Basophils (%) (Auto) 1 % (0-3) Neutrophils # (Auto) 2.8 x10^3uL (1.8-7.7) Lymphocytes # (Auto) 1.1 x10^3/uL (1.0-4.8) Monocytes # (Auto) 0.4 x10^3/uL (0.0-1.1) Eosinophils # (Auto) 0.5 x10^3/uL (0.0-0.7) Basophils # (Auto) 0.1 x10^3/uL (0.0-0.2) Sodium Level 139 mmol/L (136-145) Potassium Level 4.8 mmol/L (3.5-5.1) Chloride Level 107 mmol/L (98-107) Carbon Dioxide Level 26 mmol/L (21-32) Anion Gap 6 (6-14) Blood Urea Nitrogen 23 mg/dL (7-20) Creatinine 0.8 mg/dL (0.6-1.0) Estimated GFR (Cockcroft-Gault) 87.7 Glucose Level 86 mg/dL (70-99) Calcium Level 9.0 mg/dL (8.5-10.1) Phosphorus Level 3.6 mg/dL (2.6-4.7) Magnesium Level 2.2 mg/dL (1.8-2.4) Laboratory Tests Test 07/06/18 23:24 07/07/18 05:34 07/07/18 06:22 Glucose (Fingerstick) 104 mg/dL (70-99) 80 mg/dL (70-99) White Blood Count 4.9 x10^3/uL (4.0-11.0) Red Blood Count 2.69 x10^6/uL (3.50-5.40) Hemoglobin 6.8 g/dL (12.0-15.5) Hematocrit 21.2 % (36.0-47.0) Mean Corpuscular Volume 79 fL (79-100) Mean Corpuscular Hemoglobin 25 pg (25-35) Mean Corpuscular Hemoglobin Concent 32 g/dL (31-37) Red Cell Distribution Width 18.5 % (11.5-14.5) Platelet Count 323 x10^3/uL (140-400) Neutrophils (%) (Auto) 58 % (31-73) Lymphocytes (%) (Auto) 22 % (24-48) Monocytes (%) (Auto) 9 % (0-9) Eosinophils (%) (Auto) 10 % (0-3) Basophils (%) (Auto) 1 % (0-3) Neutrophils # (Auto) 2.8 x10^3uL (1.8-7.7) Lymphocytes # (Auto) 1.1 x10^3/uL (1.0-4.8) Monocytes # (Auto) 0.4 x10^3/uL (0.0-1.1) Eosinophils # (Auto) 0.5 x10^3/uL (0.0-0.7) Basophils # (Auto) 0.1 x10^3/uL (0.0-0.2) Sodium Level 139 mmol/L (136-145) Potassium Level 4.8 mmol/L (3.5-5.1) Chloride Level 107 mmol/L (98-107) Carbon Dioxide Level 26 mmol/L (21-32) Anion Gap 6 (6-14) Blood Urea Nitrogen 23 mg/dL (7-20) Creatinine 0.8 mg/dL (0.6-1.0) Estimated GFR (Cockcroft-Gault) 87.7 Glucose Level 86 mg/dL (70-99) Calcium Level 9.0 mg/dL (8.5-10.1) Phosphorus Level 3.6 mg/dL (2.6-4.7) Magnesium Level 2.2 mg/dL (1.8-2.4) Microbiology 06/30/18 Urine Culture - Final, Complete 06/30/18 Urine Culture Result 1 (ROYA) - Final, Complete 06/30/18 Antimicrobic Susceptibility - Final, Complete Medications Current Medications Piperacillin Sod/ Tazobactam Sod (Zosyn Per Pharmacy) 1 each PRN DAILY PRN MC SEE COMMENTS; Start 06/30/18 at 10:30; Stop 06/30/18 at 12:46; Status DC Piperacillin Sod/ Tazobactam Sod 3.375 gm/Sodium Chloride 50 ml @ 100 mls/hr ONCE ONCE IV Last administered on 06/30/18at 11:03; Start 06/30/18 at 10:30; Stop 06/30/18 at 10:59; Status DC Sodium Chloride 500 ml @ 500 mls/hr 1X ONCE IV ; Start 06/30/18 at 10:30; Stop 06/30/18 at 10:55; Status DC Fentanyl Citrate (Fentanyl 2ml Vial) 25 mcg 1X PRN PRN IV SEVERE PAIN Last administered on 06/30/18at 10:56; Start 06/30/18 at 10:45; Stop 07/01/18 at 11:04 ; Status DC Potassium Chloride/Sodium Chloride 1,000 ml @ 75 mls/hr 1X ONCE IV Last administered on 06/30/18at 11:03; Start 06/30/18 at 11:00; Stop 07/01/18 at 00:19 ; Status DC Magnesium Sulfate 50 ml @ 25 mls/hr 1X ONCE IV Last administered on 06/30/18at 20:41; Start 06/30/18 at 11:45; Stop 06/30/18 at 13:44; Status DC Sodium Chloride 1,000 ml @ 100 mls/hr Q10H IV ; Start 06/30/18 at 11:45; Stop 06/30/18 at 11:46; Status DC Piperacillin Sod/ Tazobactam Sod 3.375 gm/Sodium Chloride 50 ml @ 100 mls/hr Q6HRS IV ; Start 06/30/18 at 18:00; Stop 06/30/18 at 18:00; Status DC Magnesium Sulfate/ Dextrose 100 ml @ 25 mls/hr 1X ONCE IV Last administered on 06/30/18at 13:47; Start 06/30/18 at 13:00; Stop 06/30/18 at 16:59; Status DC Potassium Chloride/Sodium Chloride 1,000 ml @ 75 mls/hr [id number] IV ; Start at 12:30; Status UNV Potassium Chloride/Water 50 ml @ 50 mls/hr Q1H IV Last administered on at 18:16; Start 06/30/18 at 13:00; Stop 06/30/18 at 14:59; Status DC Hydromorphone HCl (Dilaudid) 2 mg PRN Q4HRS PRN IVP PAIN MILD TO MOD Last administered on 07/06/18 12:20; Start 06/30/18 at 12:30 Hydromorphone HCl (Dilaudid) 4 mg PRN Q4HRS PRN IVP PAIN SEVERE Last administered on 07/07/18 10:28; Start 06/30/18 at 12:30 Ondansetron HCl (Zofran) 4 mg PRN Q6HRS PRN IV NAUSEA/VOMITING Last administered on 07/05/18 17:52; Start 06/30/18 at 12:30 Amlodipine Besylate (Norvasc) 5 mg DAILY PO Last administered on 07/01/18 08: 35; Start 07/01/18 at 09:00; Stop 07/01/18 at 11:04; Status DC Trazodone HCl (Desyrel) 50 mg PRN QHS PRN PO INSOMNIA; Start 06/30/18 at 12:30 Sertraline HCl (Zoloft) 50 mg DAILY PO Last administered on 07/07/18 10:27; Start 07/01/18 at 09:00 Zinc Oxide (Zinc Oxide 20% Topical) 1 sang BID TP Last administered on 10:35; Start 06/30/18 at 21:00 Lorazepam (Ativan) 0.5 mg PRN Q6HRS PRN PO ANXIETY / AGITATION Last administered on 07/06/18 15:25; Start 06/30/18 at 12:30 Acetaminophen (Tylenol) 650 mg PRN Q6HRS PRN PO MILD PAIN / TEMP Last administered on 07/01/18 14:50; Start 06/30/18 at 12:30 Potassium Chloride 40 meq/ Dextrose/Sodium Chloride 1,020 ml @ 75 mls/hr [id number] IV Last administered on 07/01/18at 10:43; Start 06/30/18 at 14:00; Stop 07/01/18 at 21:59; Status DC Lidocaine HCl (Xylocaine 2% Topical 30gm Tube) 1 sang BID TP Last administered on 07/07/18at 10:35; Start 06/30/18 at 21:00 Sodium Chloride 200 meq/Sodium Acetate 20 meq/ Potassium Chloride 120 meq/ Potassium Phosphate 6.8 mmol/Magnesium Sulfate 28 meq/ Calcium Gluconate 10 meq / Multivitamins 10 ml/Chromium/ Copper/Manganese/ Seleni/Zn 1 ml/ Total Parenteral Nutrition/Amino Acids/Dextrose/ Fat Emuls... 2,040 ml @ 85 mls/hr TPN CONT IV Last administered on 07/01/18at 22:33; Start 07/01/18 at 22:00; Stop 07/02/18 at 21:59; Status DC Info (Tpn Per Pharmacy) 1 each PRN DAILY PRN MC SEE COMMENTS Last administered on 07/03/18at 12:25; Start 07/01/18 at 13:00; Stop 07/04/18 at 10:29; Status DC Diphenhydramine HCl (Benadryl) 25 mg PRN Q6HRS PRN PO ITCHING Last administered on 07/06/18at 15:25; Start 07/02/18 at 05:00 Sodium Chloride 200 meq/Sodium Acetate 20 meq/ Potassium Chloride 120 meq/ Potassium Phosphate 6.8 mmol/Magnesium Sulfate 28 meq/ Calcium Gluconate 10 meq / Multivitamins 10 ml/Chromium/ Copper/Manganese/ Seleni/Zn 1 ml/ Total Parenteral Nutrition/Amino Acids/Dextrose/ Fat Emuls... 2,040 ml @ 85 mls/hr TPN CONT IV Last administered on 07/02/18at 22:04; Start 07/02/18 at 22:00; Stop 07/03/18 at 21:59; Status DC Nystatin (Nystop) 1 sang BID TP Last administered on 07/07/18at 10:35; Start at 11:00 Nystatin (Nystop) 1 sang BID TP ; Start 07/03/18 at 21:00; Stop 07/10/18 at 20:59 ; Status UNV Sodium Phosphate 15 mmol/Dextrose 255 ml @ 63.75 mls/ hr 1X ONCE IV Last administered on 07/03/18at 13:01; Start 07/03/18 at 13:00; Stop 07/03/18 at 16:59 ; Status DC Sodium Chloride 200 meq/Sodium Acetate 20 meq/ Sodium Phosphate 10 mmol/ Potassium Chloride 100 meq/ Potassium Phosphate 6.8 mmol/Magnesium Sulfate 28 meq/ Calcium Gluconate 10 meq/ Multivitamins 10 ml/Chromium/ Copper/Manganese/ Seleni/Zn 1 ml/ Total Parenteral Nutrition/Amino Acids/Dextro... 2,040 ml @ 85 mls/hr TPN CONT IV Last administered on 07/03/18at 23:23; Start 07/03/18 at 22: 00; Stop 07/04/18 at 21:59; Status DC Dextrose/Sodium Chloride 1,000 ml @ 80 mls/hr [id number] IV Last administered on 07/05/18at 00:05; Start 07/04/18 at 10:30; Stop 07/05/18 at 21:59; Status DC Sodium Polystyrene Sulfonate (Kayexalate) 30 gm 1X ONCE PO Last administered on 07/04/18at 11:45; Start 07/04/18 at 10:30; Stop 07/04/18 at 10:37; Status DC Furosemide (Lasix) 40 mg 1X ONCE IVP Last administered on 07/04/18at 11:43; Start 07/04/18 at 10:30; Stop 07/04/18 at 10:36; Status DC Magnesium Sulfate 50 ml @ 25 mls/hr 1X ONCE IV Last administered on 07/05/18at 11:45; Start 07/05/18 at 11:00; Stop 07/05/18 at 12:59; Status DC Info (Tpn Per Pharmacy) 1 each PRN DAILY PRN MC SEE COMMENTS Last administered on 07/06/18at 12:43; Start 07/05/18 at 10:30 Sodium Chloride 200 meq/Sodium Acetate 20 meq/ Sodium Phosphate 10 mmol/ Potassium Chloride 80 meq/ Potassium Phosphate 6.8 mmol/Magnesium Sulfate 28 meq / Calcium Gluconate 10 meq/ Multivitamins 10 ml/Chromium/ Copper/Manganese/ Seleni/Zn 1 ml/ Total Parenteral Nutrition/Amino Acids/Dextro... 1,920 ml @ 80 mls/hr TPN CONT IV Last administered on 07/05/18at 22:29; Start 07/05/18 at 22: 00; Stop 07/06/18 at 21:59; Status DC Amlodipine Besylate (Norvasc) 5 mg DAILY PO Last administered on 07/07/18at 10: 27; Start 07/06/18 at 12:00 Sodium Chloride 200 meq/Sodium Acetate 20 meq/ Sodium Phosphate 10 mmol/ Potassium Chloride 80 meq/ Potassium Phosphate 6.8 mmol/Magnesium Sulfate 28 meq / Calcium Gluconate 10 meq/ Multivitamins 10 ml/Chromium/ Copper/Manganese/ Seleni/Zn 1 ml/ Total Parenteral Nutrition/Amino Acids/Dextro... 1,920 ml @ 80 mls/hr TPN CONT IV Last administered on 07/06/18at 22:12; Start 07/06/18 at 22: 00; Stop 07/07/18 at 21:59 Active Scripts Active Ambien (Zolpidem Tartrate) 5 Mg Tablet 5 Mg PO PRN QHS PRN 30 Days [Tpn Per Pharmacy] 1 EACH Each 1 Each MC PRN DAILY PRN TPN at 85cc/hour [Pantoprazole] 40 MG Tablet.dr 40 Mg PO DAILYAC Amlodipine Besylate 10 Mg Tablet 5 Mg PO DAILY Tylenol (Acetaminophen) 325 Mg Tablet 650 Mg PO PRN Q6HRS PRN 30 Days Sertraline Hcl 50 Mg Tablet 50 Mg PO DAILY 30 Days Lidocaine 35.44 Gm Oint...g. 1 Sang TP BID Reported Zofran Odt (Ondansetron) 4 Mg Tab.rapdis 1 Tab SL PRN Q8HRS PRN Zinc Oxide 56.7 Gm Oint...g. 56.7 Gm TP PRN BID Dilaudid (Hydromorphone Hcl) 2 Mg Tablet 1 Tab PO PRN QID PRN Lorazepam 0.5 Mg Tablet 0.5 Mg PO Q6HRS PRN Vitals/I & O Vital Sign - Last 24 Hours 07/06/18 07/06/18 07/06/18 07/06/18 12:20 12:21 12:50 19:30 Temp 97.9 97.9 Pulse 105 94 Resp 17 17 16 B/P (MAP) 146/78 160/90 (113) Pulse Ox 96 O2 Delivery Room Air Room Air Room Air 07/06/18 07/06/18 07/07/18 07/07/18 20:00 23:09 03:11 07:44 Temp 98.1 98.7 98.2 98.1 98.7 98.2 Pulse 89 93 86 Resp 16 16 18 B/P (MAP) 102/68 (79) 153/86 (108) 162/77 (105) Pulse Ox 99 98 100 O2 Delivery Room Air Room Air Room Air Room Air 07/07/18 07/07/18 10:27 11:15 Temp 98.1 98.1 Pulse 86 89 Resp 16 B/P (MAP) 162/77 145/70 (95) Pulse Ox 100 O2 Delivery Room Air Intake and Output 07/06/18 07/06/18 07/07/18 15:01 23:01 07:01 Intake Total 1000 ml 1200 ml 300 ml Balance 1000 ml 1200 ml 300 ml Nutrition Consultation Dietary Evaluation: Recommendations by RD: PPN/TPN Comments: continue with gi soft diet and Home TPN Expected Outcomes/Goals: wt maintainance Malnutrition Findings: Body Fat Depletion (Non Severe: Mild Depletion Weight Status: Appropriate BENITA LUTZ MD Jul 07, 2018 12:12
[2018-07-07] MEDS: TPN PER PHARMACY MC PRN (13:38)
--- NOTE | 2018-07-07 13:43 | NUR ---
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 Height: 5 feet, 3 inches Weight: 54.561416 kg Current diet: GI SOFT LABS: Sodium: 139 Potassium: 4.8 Chloride: 107 Calcium: 9.0 Corrected Calcium: 10.52 Magnesium: 2.2 CO2: 26 SCr: 0.8 Glucose: 80-136 Albumin: 2.1 AST: 13 (06/30) ALT: 14 (06/30) TPN FORMULA: TPN TYPE: Central Continuous AMINO ACIDS: 90 gm DEXTROSE: 275 gm LIPIDS: 35 gm SODIUM CHLORIDE: 200 mEq SODIUM ACETATE: 20 mEq SODIUM PHOSPHATE: 10 mmol POTASSIUM CHLORIDE: 80 mEq POTASSIUM ACETATE: - mEq POTASSIUM PHOSPHATE: 6.8 mmol MAGNESIUM: 28 mEq CALCIUM: 10 mEq INSULIN: - units MULTIPLE VITAMIN: 10 ml TRACE ELEMENTS: MTE5 1ML ml(s) TPN PLAN: -No recommendations receivedd from Dr. Cisneros today. -Labs remain within normal limits. -No noted medication or dietary changes. -No changes to TPN today. -BMP, Mag, Albumin in AM. R: Continue TPN with no changes today Will monitor electrolytes, glucose, and tolerance to TPN. NA RIOS, [facility], 07/07/18 [id number]
[2018-07-07 14:30] LABS: FECAL OB PT NEGATIVE (NEG)
[2018-07-07] MEDS: LORazepam 0.5 MG TABLET PO PRN (14:33)
[2018-07-07] MEDS: diphenhydrAMINE HCL 25 MG CAPSULE PO PRN (19:41)
[2018-07-07] MEDS ORDERED: AMINO ACID IV SCH ×12 (22:00)
[2018-07-07] MEDS ORDERED: TOTAL PARENTERAL NUTRITION IV SCH ×12 (22:00)
[2018-07-07] MEDS ORDERED: [UNRECOGNIZED DRUG - OTHER] IV SCH ×12 (22:00)
[2018-07-07] MEDS ORDERED: DEXTROSE 70% IV SCH ×12 (22:00)
[2018-07-08] MEDS: LORazepam 0.5 MG TABLET PO PRN ×4 (00:16→18:39)
[2018-07-08] MEDS: HYDROmorphone 2 MG/ML VIAL IVP PRN ×6 (02:38→23:21)
[2018-07-08 02:47] VITALS: BP 161/70
[2018-07-08 05:58] LABS: BASO # 0.1 x10^3/uL (0.0-0.2); BASO % 2 % (0-3); EOS # 0.8 x10^3/uL (0.0-0.7); EOS % 14 % (0-3); HEMATOCRIT 31.8 % (36.0-47.0); HEMOGLOBIN 10.4 g/dL (12.0-15.5); LYMPH # 1.5 x10^3/uL (1.0-4.8); LYMPH % 25 % (24-48); MEAN CORPUSCULAR HEMOGLOBIN 27 pg (25-35); MEAN CORPUSCULAR HGB CONC 33 g/dL (31-37); MEAN CORPUSCULAR VOLUME 82 fL (79-100); MONO # 0.4 x10^3/uL (0.0-1.1); MONO % 7 % (0-9); NEUT # 3.1 x10^3uL (1.8-7.7); NEUT % 53 % (31-73); PLATELET COUNT 455 x10^3/uL (140-400); RED BLOOD COUNT 3.89 x10^6/uL (3.50-5.40); RED CELL DISTRIBUTION WIDTH 19.4 % (11.5-14.5); WHITE BLOOD COUNT 5.9 x10^3/uL (4.0-11.0)
[2018-07-08 06:05] LABS: CALCIUM 9.4 mg/dL (8.5-10.1); CREATININE 0.9 mg/dL (0.6-1.0); GFR 76.5; MAGNESIUM 2.3 mg/dL (1.8-2.4); POTASSIUM 4.9 mmol/L (3.5-5.1)
[2018-07-08 07:40] VITALS: BP 148/75
[2018-07-08] MEDS: SERTRALINE 50 MG TABLET. PO SCH (10:09)
[2018-07-08] MEDS: amLODIPine BESYLATE 5 MG TABLET PO SCH (10:09)
[2018-07-08] MEDS: NYSTATIN TOPICAL POWDER 15GM BOTTLE. TP SCH ×2 (10:13→21:52)
[2018-07-08] MEDS: ZINC OXIDE 20% TOPICAL OINTMENT 28GM TUBE. TP SCH ×2 (10:13→21:52)
[2018-07-08] MEDS: LIDOCAINE 2% TOPICAL JELLY 30GM TUBE. TP SCH ×2 (10:13→21:52)
--- NOTE | 2018-07-08 10:13 | PDOC ---
PROGRESS NOTES Subjective Subjective she had a bad night with large amount of EC fistula drainage. lab reviewed. hgb up to 10.4 post transfusion. potassium and magnesium. bun slightly higher 26. stool heme neg on 06/30 and 07/07. Objective Objective Vital Signs Date Time Temp Pulse Resp B/P (MAP) Pulse Ox O2 Delivery O2 Flow Rate FiO2 07/08/18 07:40 97.7 82 18 148/75 (99) 100 Room Air 97.7 Intake and Output 07/08/18 07:01 Intake Total 1600 ml Output Total 403 ml Balance 1197 ml Intake Oral 1580 ml Blood Product IV Normal Saline Flush 20 ml Output Urine Total 403 ml # Voids 1 # Bowel Movements 1 Physical Exam Abdomen: Soft, Other (EC fistula) Heart: Regular rate, Normal S1, Normal S2 Extremities: Other (2 plus edema left leg and trace edema RLE) General: Alert HEENT: Atraumatic Lungs: Clear to auscultation Neuro: Normal speech Psych/Mental Status: Mental status NL Skin: No rashes Assessment Assessment ProblemsSevere hypokalemia. resolved 2. hypomagnesemia. 3. Mild hyponatremia. resolved 4. Anemia of chronic disease. hgb lower 5. Enterocutaneous fistula. high output last night 6. Enterovesical fistula. 7. Severe protein calorie malnutrition. 8. Hypertension.BP high 9. Chronic abdominal pain secondary to adhesions hyperkalemia resolved leg edema E. coli in urine but has enterovesical fistula fever once 07/01 without recurrence. wbc normal Medical Problems: (1) Low magnesium level Status: Acute (2) Low serum potassium Status: Acute Plan Plan of Care continue TPN cbc and bmp and magnesium tomorrow she will be at high risk for dehydration and electrolyte problems with high output from EC fistula continue amlodipine leg elevation and chano hose Comment Review of Relevant I have reviewed the following items lucila (where applicable) has been applied. Labs Laboratory Tests Test 07/06/18 11:49 07/06/18 23:24 07/07/18 05:34 07/07/18 06:22 Glucose (Fingerstick) 92 mg/dL (70-99) 104 mg/dL (70-99) 80 mg/dL (70-99) White Blood Count 4.9 x10^3/uL (4.0-11.0) Red Blood Count 2.69 x10^6/uL (3.50-5.40) Hemoglobin 6.8 g/dL (12.0-15.5) Hematocrit 21.2 % (36.0-47.0) Mean Corpuscular Volume 79 fL (79-100) Mean Corpuscular Hemoglobin 25 pg (25-35) Mean Corpuscular Hemoglobin Concent 32 g/dL (31-37) Red Cell Distribution Width 18.5 % (11.5-14.5) Platelet Count 323 x10^3/uL (140-400) Neutrophils (%) (Auto) 58 % (31-73) Lymphocytes (%) (Auto) 22 % (24-48) Monocytes (%) (Auto) 9 % (0-9) Eosinophils (%) (Auto) 10 % (0-3) Basophils (%) (Auto) 1 % (0-3) Neutrophils # (Auto) 2.8 x10^3uL (1.8-7.7) Lymphocytes # (Auto) 1.1 x10^3/uL (1.0-4.8) Monocytes # (Auto) 0.4 x10^3/uL (0.0-1.1) Eosinophils # (Auto) 0.5 x10^3/uL (0.0-0.7) Basophils # (Auto) 0.1 x10^3/uL (0.0-0.2) Sodium Level 139 mmol/L (136-145) Potassium Level 4.8 mmol/L (3.5-5.1) Chloride Level 107 mmol/L (98-107) Carbon Dioxide Level 26 mmol/L (21-32) Anion Gap 6 (6-14) Blood Urea Nitrogen 23 mg/dL (7-20) Creatinine 0.8 mg/dL (0.6-1.0) Estimated GFR (Cockcroft-Gault) 87.7 Glucose Level 86 mg/dL (70-99) Calcium Level 9.0 mg/dL (8.5-10.1) Phosphorus Level 3.6 mg/dL (2.6-4.7) Magnesium Level 2.2 mg/dL (1.8-2.4) Test 07/07/18 12:05 07/07/18 13:30 07/07/18 17:52 07/08/18 05:45 Glucose (Fingerstick) 136 mg/dL (70-99) 76 mg/dL (70-99) Stool Occult Blood Negative (NEG) White Blood Count 5.9 x10^3/uL (4.0-11.0) Red Blood Count 3.89 x10^6/uL (3.50-5.40) Hemoglobin 10.4 g/dL (12.0-15.5) Hematocrit 31.8 % (36.0-47.0) Mean Corpuscular Volume 82 fL (79-100) Mean Corpuscular Hemoglobin 27 pg (25-35) Mean Corpuscular Hemoglobin Concent 33 g/dL (31-37) Red Cell Distribution Width 19.4 % (11.5-14.5) Platelet Count 455 x10^3/uL (140-400) Neutrophils (%) (Auto) 53 % (31-73) Lymphocytes (%) (Auto) 25 % (24-48) Monocytes (%) (Auto) 7 % (0-9) Eosinophils (%) (Auto) 14 % (0-3) Basophils (%) (Auto) 2 % (0-3) Neutrophils # (Auto) 3.1 x10^3uL (1.8-7.7) Lymphocytes # (Auto) 1.5 x10^3/uL (1.0-4.8) Monocytes # (Auto) 0.4 x10^3/uL (0.0-1.1) Eosinophils # (Auto) 0.8 x10^3/uL (0.0-0.7) Basophils # (Auto) 0.1 x10^3/uL (0.0-0.2) Sodium Level 139 mmol/L (136-145) Potassium Level 4.9 mmol/L (3.5-5.1) Chloride Level 104 mmol/L (98-107) Carbon Dioxide Level 27 mmol/L (21-32) Anion Gap 8 (6-14) Blood Urea Nitrogen 26 mg/dL (7-20) Creatinine 0.9 mg/dL (0.6-1.0) Estimated GFR (Cockcroft-Gault) 76.5 Glucose Level 81 mg/dL (70-99) Calcium Level 9.4 mg/dL (8.5-10.1) Magnesium Level 2.3 mg/dL (1.8-2.4) Albumin 2.9 g/dL (3.4-5.0) Test 07/08/18 06:05 Glucose (Fingerstick) 99 mg/dL (70-99) Laboratory Tests Test 07/07/18 12:05 07/07/18 13:30 07/07/18 17:52 07/08/18 05:45 Glucose (Fingerstick) 136 mg/dL (70-99) 76 mg/dL (70-99) Stool Occult Blood Negative (NEG) White Blood Count 5.9 x10^3/uL (4.0-11.0) Red Blood Count 3.89 x10^6/uL (3.50-5.40) Hemoglobin 10.4 g/dL (12.0-15.5) Hematocrit 31.8 % (36.0-47.0) Mean Corpuscular Volume 82 fL (79-100) Mean Corpuscular Hemoglobin 27 pg (25-35) Mean Corpuscular Hemoglobin Concent 33 g/dL (31-37) Red Cell Distribution Width 19.4 % (11.5-14.5) Platelet Count 455 x10^3/uL (140-400) Neutrophils (%) (Auto) 53 % (31-73) Lymphocytes (%) (Auto) 25 % (24-48) Monocytes (%) (Auto) 7 % (0-9) Eosinophils (%) (Auto) 14 % (0-3) Basophils (%) (Auto) 2 % (0-3) Neutrophils # (Auto) 3.1 x10^3uL (1.8-7.7) Lymphocytes # (Auto) 1.5 x10^3/uL (1.0-4.8) Monocytes # (Auto) 0.4 x10^3/uL (0.0-1.1) Eosinophils # (Auto) 0.8 x10^3/uL (0.0-0.7) Basophils # (Auto) 0.1 x10^3/uL (0.0-0.2) Sodium Level 139 mmol/L (136-145) Potassium Level 4.9 mmol/L (3.5-5.1) Chloride Level 104 mmol/L (98-107) Carbon Dioxide Level 27 mmol/L (21-32) Anion Gap 8 (6-14) Blood Urea Nitrogen 26 mg/dL (7-20) Creatinine 0.9 mg/dL (0.6-1.0) Estimated GFR (Cockcroft-Gault) 76.5 Glucose Level 81 mg/dL (70-99) Calcium Level 9.4 mg/dL (8.5-10.1) Magnesium Level 2.3 mg/dL (1.8-2.4) Albumin 2.9 g/dL (3.4-5.0) Test 07/08/18 06:05 Glucose (Fingerstick) 99 mg/dL (70-99) Microbiology 06/30/18 Urine Culture - Final, Complete 06/30/18 Urine Culture Result 1 (ROYA) - Final, Complete 06/30/18 Antimicrobic Susceptibility - Final, Complete Medications Current Medications Piperacillin Sod/ Tazobactam Sod (Zosyn Per Pharmacy) 1 each PRN DAILY PRN MC SEE COMMENTS; Start 06/30/18 at 10:30; Stop 06/30/18 at 12:46; Status DC Piperacillin Sod/ Tazobactam Sod 3.375 gm/Sodium Chloride 50 ml @ 100 mls/hr ONCE ONCE IV Last administered on 06/30/18at 11:03; Start 06/30/18 at 10:30; Stop 06/30/18 at 10:59; Status DC Sodium Chloride 500 ml @ 500 mls/hr 1X ONCE IV ; Start 06/30/18 at 10:30; Stop 06/30/18 at 10:55; Status DC Fentanyl Citrate (Fentanyl 2ml Vial) 25 mcg 1X PRN PRN IV SEVERE PAIN Last administered on 06/30/18at 10:56; Start 06/30/18 at 10:45; Stop 07/01/18 at 11:04 ; Status DC Potassium Chloride/Sodium Chloride 1,000 ml @ 75 mls/hr 1X ONCE IV Last administered on 06/30/18at 11:03; Start 06/30/18 at 11:00; Stop 07/01/18 at 00:19 ; Status DC Magnesium Sulfate 50 ml @ 25 mls/hr 1X ONCE IV Last administered on 06/30/18at 20:41; Start 06/30/18 at 11:45; Stop 06/30/18 at 13:44; Status DC Sodium Chloride 1,000 ml @ 100 mls/hr Q10H IV ; Start 06/30/18 at 11:45; Stop 06/30/18 at 11:46; Status DC Piperacillin Sod/ Tazobactam Sod 3.375 gm/Sodium Chloride 50 ml @ 100 mls/hr Q6HRS IV ; Start 06/30/18 at 18:00; Stop 06/30/18 at 18:00; Status DC Magnesium Sulfate/ Dextrose 100 ml @ 25 mls/hr 1X ONCE IV Last administered on 06/30/18at 13:47; Start 06/30/18 at 13:00; Stop 06/30/18 at 16:59; Status DC Potassium Chloride/Sodium Chloride 1,000 ml @ 75 mls/hr [id number] IV ; Start at 12:30; Status UNV Potassium Chloride/Water 50 ml @ 50 mls/hr Q1H IV Last administered on at 18:16; Start 06/30/18 at 13:00; Stop 06/30/18 at 14:59; Status DC Hydromorphone HCl (Dilaudid) 2 mg PRN Q4HRS PRN IVP PAIN MILD TO MOD Last administered on 07/07/18at 14:34; Start 06/30/18 at 12:30 Hydromorphone HCl (Dilaudid) 4 mg PRN Q4HRS PRN IVP PAIN SEVERE Last administered on 07/08/18at 06:37; Start 06/30/18 at 12:30 Ondansetron HCl (Zofran) 4 mg PRN Q6HRS PRN IV NAUSEA/VOMITING Last administered on 07/05/18at 17:52; Start 06/30/18 at 12:30 Amlodipine Besylate (Norvasc) 5 mg DAILY PO Last administered on 07/01/18at 08: 35; Start 07/01/18 at 09:00; Stop 07/01/18 at 11:04; Status DC Trazodone HCl (Desyrel) 50 mg PRN QHS PRN PO INSOMNIA; Start 06/30/18 at 12:30 Sertraline HCl (Zoloft) 50 mg DAILY PO Last administered on 07/07/18at 10:27; Start 07/01/18 at 09:00 Zinc Oxide (Zinc Oxide 20% Topical) 1 sang BID TP Last administered on at 19:42; Start 06/30/18 at 21:00 Lorazepam (Ativan) 0.5 mg PRN Q6HRS PRN PO ANXIETY / AGITATION Last administered on 07/08/18 05:58; Start 06/30/18 at 12:30 Acetaminophen (Tylenol) 650 mg PRN Q6HRS PRN PO MILD PAIN / TEMP Last administered on 07/01/18 14:50; Start 06/30/18 at 12:30 Potassium Chloride 40 meq/ Dextrose/Sodium Chloride 1,020 ml @ 75 mls/hr [id number] IV Last administered on 07/01/18at 10:43; Start 06/30/18 at 14:00; Stop 07/01/18 at 21:59; Status DC Lidocaine HCl (Xylocaine 2% Topical 30gm Tube) 1 sang BID TP Last administered on 07/07/18at 21:00; Start 06/30/18 at 21:00 Sodium Chloride 200 meq/Sodium Acetate 20 meq/ Potassium Chloride 120 meq/ Potassium Phosphate 6.8 mmol/Magnesium Sulfate 28 meq/ Calcium Gluconate 10 meq / Multivitamins 10 ml/Chromium/ Copper/Manganese/ Seleni/Zn 1 ml/ Total Parenteral Nutrition/Amino Acids/Dextrose/ Fat Emuls... 2,040 ml @ 85 mls/hr TPN CONT IV Last administered on 07/01/18at 22:33; Start 07/01/18 at 22:00; Stop 07/02/18 at 21:59; Status DC Info (Tpn Per Pharmacy) 1 each PRN DAILY PRN MC SEE COMMENTS Last administered on 07/03/18at 12:25; Start 07/01/18 at 13:00; Stop 07/04/18 at 10:29; Status DC Diphenhydramine HCl (Benadryl) 25 mg PRN Q6HRS PRN PO ITCHING Last administered on 07/07/18 19:41; Start 07/02/18 at 05:00 Sodium Chloride 200 meq/Sodium Acetate 20 meq/ Potassium Chloride 120 meq/ Potassium Phosphate 6.8 mmol/Magnesium Sulfate 28 meq/ Calcium Gluconate 10 meq / Multivitamins 10 ml/Chromium/ Copper/Manganese/ Seleni/Zn 1 ml/ Total Parenteral Nutrition/Amino Acids/Dextrose/ Fat Emuls... 2,040 ml @ 85 mls/hr TPN CONT IV Last administered on 07/02/18at 22:04; Start 07/02/18 at 22:00; Stop 07/03/18 at 21:59; Status DC Nystatin (Nystop) 1 sang BID TP Last administered on 07/07/18at 19:42; Start at 11:00 Nystatin (Nystop) 1 sang BID TP ; Start 07/03/18 at 21:00; Stop 07/10/18 at 20:59 ; Status UNV Sodium Phosphate 15 mmol/Dextrose 255 ml @ 63.75 mls/ hr 1X ONCE IV Last administered on 07/03/18at 13:01; Start 07/03/18 at 13:00; Stop 07/03/18 at 16:59 ; Status DC Sodium Chloride 200 meq/Sodium Acetate 20 meq/ Sodium Phosphate 10 mmol/ Potassium Chloride 100 meq/ Potassium Phosphate 6.8 mmol/Magnesium Sulfate 28 meq/ Calcium Gluconate 10 meq/ Multivitamins 10 ml/Chromium/ Copper/Manganese/ Seleni/Zn 1 ml/ Total Parenteral Nutrition/Amino Acids/Dextro... 2,040 ml @ 85 mls/hr TPN CONT IV Last administered on 07/03/18at 23:23; Start 07/03/18 at 22: 00; Stop 07/04/18 at 21:59; Status DC Dextrose/Sodium Chloride 1,000 ml @ 80 mls/hr [id number] IV Last administered on 07/05/18at 00:05; Start 07/04/18 at 10:30; Stop 07/05/18 at 21:59; Status DC Sodium Polystyrene Sulfonate (Kayexalate) 30 gm 1X ONCE PO Last administered on 07/04/18at 11:45; Start 07/04/18 at 10:30; Stop 07/04/18 at 10:37; Status DC Furosemide (Lasix) 40 mg 1X ONCE IVP Last administered on 07/04/18at 11:43; Start 07/04/18 at 10:30; Stop 07/04/18 at 10:36; Status DC Magnesium Sulfate 50 ml @ 25 mls/hr 1X ONCE IV Last administered on 07/05/18at 11:45; Start 07/05/18 at 11:00; Stop 07/05/18 at 12:59; Status DC Info (Tpn Per Pharmacy) 1 each PRN DAILY PRN MC SEE COMMENTS Last administered on 07/07/18at 13:38; Start 07/05/18 at 10:30 Sodium Chloride 200 meq/Sodium Acetate 20 meq/ Sodium Phosphate 10 mmol/ Potassium Chloride 80 meq/ Potassium Phosphate 6.8 mmol/Magnesium Sulfate 28 meq / Calcium Gluconate 10 meq/ Multivitamins 10 ml/Chromium/ Copper/Manganese/ Seleni/Zn 1 ml/ Total Parenteral Nutrition/Amino Acids/Dextro... 1,920 ml @ 80 mls/hr TPN CONT IV Last administered on 07/05/18at 22:29; Start 07/05/18 at 22: 00; Stop 07/06/18 at 21:59; Status DC Amlodipine Besylate (Norvasc) 5 mg DAILY PO Last administered on 07/07/18at 10: 27; Start 07/06/18 at 12:00 Sodium Chloride 200 meq/Sodium Acetate 20 meq/ Sodium Phosphate 10 mmol/ Potassium Chloride 80 meq/ Potassium Phosphate 6.8 mmol/Magnesium Sulfate 28 meq / Calcium Gluconate 10 meq/ Multivitamins 10 ml/Chromium/ Copper/Manganese/ Seleni/Zn 1 ml/ Total Parenteral Nutrition/Amino Acids/Dextro... 1,920 ml @ 80 mls/hr TPN CONT IV Last administered on 07/06/18at 22:12; Start 07/06/18 at 22: 00; Stop 07/07/18 at 21:59; Status DC Sodium Chloride 200 meq/Sodium Acetate 20 meq/ Sodium Phosphate 10 mmol/ Potassium Chloride 80 meq/ Potassium Phosphate 6.8 mmol/Magnesium Sulfate 28 meq / Calcium Gluconate 10 meq/ Multivitamins 10 ml/Chromium/ Copper/Manganese/ Seleni/Zn 1 ml/ Total Parenteral Nutrition/Amino Acids/Dextro... 1,920 ml @ 80 mls/hr TPN CONT IV Last administered on 07/07/18at 22:31; Start 07/07/18 at 22: 00; Stop 07/08/18 at 21:59 Active Scripts Active Ambien (Zolpidem Tartrate) 5 Mg Tablet 5 Mg PO PRN QHS PRN 30 Days [Tpn Per Pharmacy] 1 EACH Each 1 Each MC PRN DAILY PRN TPN at 85cc/hour [Pantoprazole] 40 MG Tablet.dr 40 Mg PO DAILYAC Amlodipine Besylate 10 Mg Tablet 5 Mg PO DAILY Tylenol (Acetaminophen) 325 Mg Tablet 650 Mg PO PRN Q6HRS PRN 30 Days Sertraline Hcl 50 Mg Tablet 50 Mg PO DAILY 30 Days Lidocaine 35.44 Gm Oint...g. 1 Sang TP BID Reported Zofran Odt (Ondansetron) 4 Mg Tab.rapdis 1 Tab SL PRN Q8HRS PRN Zinc Oxide 56.7 Gm Oint...g. 56.7 Gm TP PRN BID Dilaudid (Hydromorphone Hcl) 2 Mg Tablet 1 Tab PO PRN QID PRN Lorazepam 0.5 Mg Tablet 0.5 Mg PO Q6HRS PRN Vitals/I & O Vital Sign - Last 24 Hours 07/07/18 07/07/18 07/07/18 07/07/18 10:27 11:15 15:15 15:42 Temp 98.1 98.5 98.2 98.1 98.5 98.2 Pulse 86 89 94 82 Resp 16 18 18 B/P (MAP) 162/77 145/70 (95) 165/84 (111) 132/87 Pulse Ox 100 95 O2 Delivery Room Air Room Air 07/07/18 07/07/18 07/07/18 07/07/18 16:42 18:00 18:30 19:00 Temp 98.3 98.1 98.3 98.1 98.3 98.1 98.3 98.1 Pulse 80 81 78 79 Resp 18 18 18 16 B/P (MAP) 135/73 127/75 128/72 130/79 (96) Pulse Ox 100 O2 Delivery Room Air 07/07/18 07/07/18 07/07/18 07/07/18 19:30 20:03 21:13 22:41 Temp 98.1 98.3 98.0 98.1 98.3 98.0 Pulse 79 106 79 Resp 16 17 16 B/P (MAP) 130/79 122/88 129/58 (81) Pulse Ox 97 O2 Delivery Room Air Room Air 07/08/18 07/08/18 07/08/18 02:47 07:00 07:40 Temp 96.7 97.7 96.7 97.7 Pulse 78 82 Resp 16 18 18 B/P (MAP) 161/70 (100) 148/75 (99) Pulse Ox 100 100 O2 Delivery Room Air Room Air Room Air Intake and Output 07/07/18 07/07/18 07/08/18 15:01 23:01 07:01 Intake Total 200 ml 1400 ml Output Total 3 ml 400 ml Balance 197 ml 1000 ml Nutrition Consultation Dietary Evaluation: Recommendations by RD: PPN/TPN Comments: continue with gi soft diet and Home TPN Expected Outcomes/Goals: wt maintainance Malnutrition Findings: Body Fat Depletion (Non Severe: Mild Depletion Weight Status: Appropriate BENITA LUTZ MD Jul 08, 2018 10:13
[2018-07-08 11:23] VITALS: BP 156/90
--- NOTE | 2018-07-08 13:26 | PDOC ---
Subjective: Subjective: More drainage today. No bleeding. Objective: Vital Signs: Vital Signs Date Time Temp Pulse Resp B/P (MAP) Pulse Ox O2 Delivery O2 Flow Rate FiO2 07/08/18 11:26 18 Room Air 07/08/18 11:23 98.5 84 156/90 (112) 98 98.5 Labs: Laboratory Tests Test 07/07/18 13:30 07/07/18 17:52 07/08/18 05:45 07/08/18 06:05 Stool Occult Blood Negative Glucose (Fingerstick) 76 mg/dL 99 mg/dL White Blood Count 5.9 x10^3/uL Red Blood Count 3.89 x10^6/uL Hemoglobin 10.4 g/dL Hematocrit 31.8 % Mean Corpuscular Volume 82 fL Mean Corpuscular Hemoglobin 27 pg Mean Corpuscular Hemoglobin Concent 33 g/dL Red Cell Distribution Width 19.4 % Platelet Count 455 x10^3/uL Neutrophils (%) (Auto) 53 % Lymphocytes (%) (Auto) 25 % Monocytes (%) (Auto) 7 % Eosinophils (%) (Auto) 14 % Basophils (%) (Auto) 2 % Neutrophils # (Auto) 3.1 x10^3uL Lymphocytes # (Auto) 1.5 x10^3/uL Monocytes # (Auto) 0.4 x10^3/uL Eosinophils # (Auto) 0.8 x10^3/uL Basophils # (Auto) 0.1 x10^3/uL Sodium Level 139 mmol/L Potassium Level 4.9 mmol/L Chloride Level 104 mmol/L Carbon Dioxide Level 27 mmol/L Anion Gap 8 Blood Urea Nitrogen 26 mg/dL Creatinine 0.9 mg/dL Estimated GFR (Cockcroft-Gault) 76.5 Glucose Level 81 mg/dL Calcium Level 9.4 mg/dL Magnesium Level 2.3 mg/dL Albumin 2.9 g/dL Test 07/08/18 12:49 Glucose (Fingerstick) 175 mg/dL PE: GEN: NAD - has tray of broccoli, pot pie, and cottage cheese LUNGS: CTAB HEART: RRR ABD: holding towels over abdomen NEURO/PSYCH: A & O �3, drowsy A/P: Chronic anemia - Hgb 6.8 to 10.4 after 2 units Chronic fistulae, suspect intermittent obstruction - on TPN, apparently still eats some regular food - increased output today Chronic pain -- Continue support. MIESHA RICO Jul 08, 2018 13:26
[2018-07-08] MEDS: TPN PER PHARMACY MC PRN (13:46)
--- NOTE | 2018-07-08 13:51 | NUR ---
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; NURSING HOME TPN Height: 5 feet, 3 inches Weight: 50.985947 kg Current diet: GI SOFT LABS: Sodium: 139 Potassium: 4.9 Chloride: 104 Calcium: 9.4 Corrected Calcium: 10.28 Magnesium: 2.3 CO2: 27 SCr: 0.9 Glucose: 76-136 Albumin: 2.9 AST: 13 (06/30) ALT: 14 (06/30) TPN FORMULA: TPN TYPE: Central Continuous AMINO ACIDS: 90 gm DEXTROSE: 275 gm LIPIDS: 35 gm SODIUM CHLORIDE: 200 mEq SODIUM ACETATE: 20 mEq SODIUM PHOSPHATE: 10 mmol POTASSIUM CHLORIDE: 60 mEq POTASSIUM ACETATE: - mEq POTASSIUM PHOSPHATE: 6.8 mmol MAGNESIUM: 28 mEq CALCIUM: 10 mEq INSULIN: - units MULTIPLE VITAMIN: 10 ml TRACE ELEMENTS: MTE5 1ML ml(s) TPN PLAN: -Patient had large amount of EC fistual drainage over night. -Potassium, Mag, and BUN trending up on high end of normal. Discussed with Dr. Cisneros. Per Dr. Cisneros will decrease potassium chloride to 60 mEq/bag in TPN and keep Mag the same at this time. -Albumin checked this AM up to 2.9. Corrected calcium about 10.2. -BMP, Mag and ionized calcium in AM. R: Continue TPN with adjustment to Potassium Chloride Will monitor electrolytes, glucose, and tolerance to TPN. NA RIOS, [facility], 07/08/18 0718
[2018-07-08 15:14] VITALS: BP 140/89
[2018-07-08 19:10] VITALS: BP 162/84
[2018-07-08] MEDS: diphenhydrAMINE HCL 25 MG CAPSULE PO PRN (21:52)
[2018-07-08] MEDS ORDERED: AMINO ACID IV SCH ×12 (22:00)
[2018-07-08] MEDS ORDERED: DEXTROSE 70% IV SCH ×12 (22:00)
[2018-07-08] MEDS ORDERED: [UNRECOGNIZED DRUG - OTHER] IV SCH ×12 (22:00)
[2018-07-08] MEDS ORDERED: TOTAL PARENTERAL NUTRITION IV SCH ×12 (22:00)
[2018-07-08 23:15] VITALS: BP 161/98
[2018-07-08] MEDS: ONDANSETRON PF 4 MG/2 ML VIAL. IV PRN (23:21)
[2018-07-09 03:15] VITALS: BP 171/90
[2018-07-09] MEDS: LORazepam 0.5 MG TABLET PO PRN ×3 (03:55→22:28)
[2018-07-09] MEDS: HYDROmorphone 2 MG/ML VIAL IVP PRN ×5 (03:55→21:18)
[2018-07-09 05:06] LABS: BASO # 0.1 x10^3/uL (0.0-0.2); BASO % 1 % (0-3); EOS # 0.7 x10^3/uL (0.0-0.7); EOS % 8 % (0-3); HEMATOCRIT 32.3 % (36.0-47.0); HEMOGLOBIN 10.2 g/dL (12.0-15.5); LYMPH # 0.9 x10^3/uL (1.0-4.8); LYMPH % 11 % (24-48); MEAN CORPUSCULAR HEMOGLOBIN 26 pg (25-35); MEAN CORPUSCULAR HGB CONC 32 g/dL (31-37); MEAN CORPUSCULAR VOLUME 82 fL (79-100); MONO # 0.6 x10^3/uL (0.0-1.1); MONO % 7 % (0-9); NEUT # 5.7 x10^3uL (1.8-7.7); NEUT % 72 % (31-73); PLATELET COUNT 469 x10^3/uL (140-400); RED BLOOD COUNT 3.92 x10^6/uL (3.50-5.40); RED CELL DISTRIBUTION WIDTH 19.1 % (11.5-14.5)
[2018-07-09 05:17] LABS: CALCIUM 9.3 mg/dL (8.5-10.1); CREATININE 0.8 mg/dL (0.6-1.0); GFR 87.7; MAGNESIUM 2.6 mg/dL (1.8-2.4)
[2018-07-09 05:19] LABS: POTASSIUM 5.2 mmol/L (3.5-5.1)
[2018-07-09 07:00] VITALS: BP 134/76
[2018-07-09] MEDS: LIDOCAINE 2% TOPICAL JELLY 30GM TUBE. TP SCH ×2 (09:00→20:43)
[2018-07-09] MEDS: NYSTATIN TOPICAL POWDER 15GM BOTTLE. TP SCH ×2 (09:00→20:43)
[2018-07-09] MEDS: ZINC OXIDE 20% TOPICAL OINTMENT 28GM TUBE. TP SCH ×2 (09:00→20:43)
[2018-07-09] MEDS: SERTRALINE 50 MG TABLET. PO SCH (09:08)
[2018-07-09] MEDS: amLODIPine BESYLATE 5 MG TABLET PO SCH (09:08)
--- NOTE | 2018-07-09 11:12 | PDOC ---
PROGRESS NOTES Subjective Subjective feels better. had some blood from EC fistula last night but none this morning. hgb stable 10.2. potassium high 5.2and magnesium high. has leg edema as before. will order iv lasix today Objective Objective Vital Signs Date Time Temp Pulse Resp B/P (MAP) Pulse Ox O2 Delivery O2 Flow Rate FiO2 07/09/18 09:38 17 Room Air 07/09/18 09:08 88 134/76 07/09/18 07:00 98.0 100 98.0 Intake and Output 07/09/18 07:01 Intake Total 600 ml Output Total 600 ml Balance 0 ml Intake Oral 600 ml Output Urine Total 600 ml # Voids 4 Physical Exam Abdomen: Soft, Other (EC fistula) Heart: Regular rate, Normal S1, Normal S2 Extremities: Other (2 plus edema LLE and trace edema RLE) General: Alert HEENT: Atraumatic Lungs: Clear to auscultation Neuro: Normal speech Psych/Mental Status: Mental status NL Skin: No rashes Assessment Assessment ProblemsSevere hypokalemia. resolved 2. hypomagnesemia. 3. Mild hyponatremia. resolved 4. Anemia of chronic disease. hgb lower 5. Enterocutaneous fistula. high output last night 6. Enterovesical fistula. 7. Severe protein calorie malnutrition. 8. Hypertension.BP high 9. Chronic abdominal pain secondary to adhesions hyperkalemia leg edema E. coli in urine but has enterovesical fistula fever once 07/01 without recurrence. wbc normal Medical Problems: (1) Low magnesium level Status: Acute (2) Low serum potassium Status: Acute Plan Plan of Care d/c TPN and spoke with pharmacist to decrease KCL to 40 meq/day and magnesium sulfate to 24 meq/day in new TPN start iv NS until new TPN started iv lasix times 1 dose daily labs Comment Review of Relevant I have reviewed the following items lucila (where applicable) has been applied. Labs Laboratory Tests Test 07/07/18 12:05 07/07/18 13:30 07/07/18 17:52 07/08/18 05:45 Glucose (Fingerstick) 136 mg/dL (70-99) 76 mg/dL (70-99) Stool Occult Blood Negative (NEG) White Blood Count 5.9 x10^3/uL (4.0-11.0) Red Blood Count 3.89 x10^6/uL (3.50-5.40) Hemoglobin 10.4 g/dL (12.0-15.5) Hematocrit 31.8 % (36.0-47.0) Mean Corpuscular Volume 82 fL (79-100) Mean Corpuscular Hemoglobin 27 pg (25-35) Mean Corpuscular Hemoglobin Concent 33 g/dL (31-37) Red Cell Distribution Width 19.4 % (11.5-14.5) Platelet Count 455 x10^3/uL (140-400) Neutrophils (%) (Auto) 53 % (31-73) Lymphocytes (%) (Auto) 25 % (24-48) Monocytes (%) (Auto) 7 % (0-9) Eosinophils (%) (Auto) 14 % (0-3) Basophils (%) (Auto) 2 % (0-3) Neutrophils # (Auto) 3.1 x10^3uL (1.8-7.7) Lymphocytes # (Auto) 1.5 x10^3/uL (1.0-4.8) Monocytes # (Auto) 0.4 x10^3/uL (0.0-1.1) Eosinophils # (Auto) 0.8 x10^3/uL (0.0-0.7) Basophils # (Auto) 0.1 x10^3/uL (0.0-0.2) Sodium Level 139 mmol/L (136-145) Potassium Level 4.9 mmol/L (3.5-5.1) Chloride Level 104 mmol/L (98-107) Carbon Dioxide Level 27 mmol/L (21-32) Anion Gap 8 (6-14) Blood Urea Nitrogen 26 mg/dL (7-20) Creatinine 0.9 mg/dL (0.6-1.0) Estimated GFR (Cockcroft-Gault) 76.5 Glucose Level 81 mg/dL (70-99) Calcium Level 9.4 mg/dL (8.5-10.1) Magnesium Level 2.3 mg/dL (1.8-2.4) Albumin 2.9 g/dL (3.4-5.0) Test 07/08/18 06:05 07/08/18 12:49 07/08/18 18:52 07/09/18 04:20 Glucose (Fingerstick) 99 mg/dL (70-99) 175 mg/dL (70-99) 97 mg/dL (70-99) White Blood Count 8.0 x10^3/uL (4.0-11.0) Red Blood Count 3.92 x10^6/uL (3.50-5.40) Hemoglobin 10.2 g/dL (12.0-15.5) Hematocrit 32.3 % (36.0-47.0) Mean Corpuscular Volume 82 fL (79-100) Mean Corpuscular Hemoglobin 26 pg (25-35) Mean Corpuscular Hemoglobin Concent 32 g/dL (31-37) Red Cell Distribution Width 19.1 % (11.5-14.5) Platelet Count 469 x10^3/uL (140-400) Neutrophils (%) (Auto) 72 % (31-73) Lymphocytes (%) (Auto) 11 % (24-48) Monocytes (%) (Auto) 7 % (0-9) Eosinophils (%) (Auto) 8 % (0-3) Basophils (%) (Auto) 1 % (0-3) Neutrophils # (Auto) 5.7 x10^3uL (1.8-7.7) Lymphocytes # (Auto) 0.9 x10^3/uL (1.0-4.8) Monocytes # (Auto) 0.6 x10^3/uL (0.0-1.1) Eosinophils # (Auto) 0.7 x10^3/uL (0.0-0.7) Basophils # (Auto) 0.1 x10^3/uL (0.0-0.2) Sodium Level 139 mmol/L (136-145) Potassium Level 5.2 mmol/L (3.5-5.1) Chloride Level 106 mmol/L (98-107) Carbon Dioxide Level 25 mmol/L (21-32) Anion Gap 8 (6-14) Blood Urea Nitrogen 33 mg/dL (7-20) Creatinine 0.8 mg/dL (0.6-1.0) Estimated GFR (Cockcroft-Gault) 87.7 Glucose Level 100 mg/dL (70-99) Calcium Level 9.3 mg/dL (8.5-10.1) Ionized Calcium 1.26 mmol/L (1.13-1.32) Magnesium Level 2.6 mg/dL (1.8-2.4) Test 07/09/18 06:56 Glucose (Fingerstick) 113 mg/dL (70-99) Laboratory Tests Test 07/08/18 12:49 07/08/18 18:52 07/09/18 04:20 07/09/18 06:56 Glucose (Fingerstick) 175 mg/dL (70-99) 97 mg/dL (70-99) 113 mg/dL (70-99) White Blood Count 8.0 x10^3/uL (4.0-11.0) Red Blood Count 3.92 x10^6/uL (3.50-5.40) Hemoglobin 10.2 g/dL (12.0-15.5) Hematocrit 32.3 % (36.0-47.0) Mean Corpuscular Volume 82 fL (79-100) Mean Corpuscular Hemoglobin 26 pg (25-35) Mean Corpuscular Hemoglobin Concent 32 g/dL (31-37) Red Cell Distribution Width 19.1 % (11.5-14.5) Platelet Count 469 x10^3/uL (140-400) Neutrophils (%) (Auto) 72 % (31-73) Lymphocytes (%) (Auto) 11 % (24-48) Monocytes (%) (Auto) 7 % (0-9) Eosinophils (%) (Auto) 8 % (0-3) Basophils (%) (Auto) 1 % (0-3) Neutrophils # (Auto) 5.7 x10^3uL (1.8-7.7) Lymphocytes # (Auto) 0.9 x10^3/uL (1.0-4.8) Monocytes # (Auto) 0.6 x10^3/uL (0.0-1.1) Eosinophils # (Auto) 0.7 x10^3/uL (0.0-0.7) Basophils # (Auto) 0.1 x10^3/uL (0.0-0.2) Sodium Level 139 mmol/L (136-145) Potassium Level 5.2 mmol/L (3.5-5.1) Chloride Level 106 mmol/L (98-107) Carbon Dioxide Level 25 mmol/L (21-32) Anion Gap 8 (6-14) Blood Urea Nitrogen 33 mg/dL (7-20) Creatinine 0.8 mg/dL (0.6-1.0) Estimated GFR (Cockcroft-Gault) 87.7 Glucose Level 100 mg/dL (70-99) Calcium Level 9.3 mg/dL (8.5-10.1) Ionized Calcium 1.26 mmol/L (1.13-1.32) Magnesium Level 2.6 mg/dL (1.8-2.4) Microbiology 06/30/18 Urine Culture - Final, Complete 06/30/18 Urine Culture Result 1 (ROYA) - Final, Complete 06/30/18 Antimicrobic Susceptibility - Final, Complete Medications Current Medications Piperacillin Sod/ Tazobactam Sod (Zosyn Per Pharmacy) 1 each PRN DAILY PRN MC SEE COMMENTS; Start 06/30/18 at 10:30; Stop 06/30/18 at 12:46; Status DC Piperacillin Sod/ Tazobactam Sod 3.375 gm/Sodium Chloride 50 ml @ 100 mls/hr ONCE ONCE IV Last administered on 06/30/18at 11:03; Start 06/30/18 at 10:30; Stop 06/30/18 at 10:59; Status DC Sodium Chloride 500 ml @ 500 mls/hr 1X ONCE IV ; Start 06/30/18 at 10:30; Stop 06/30/18 at 10:55; Status DC Fentanyl Citrate (Fentanyl 2ml Vial) 25 mcg 1X PRN PRN IV SEVERE PAIN Last administered on 06/30/18at 10:56; Start 06/30/18 at 10:45; Stop 07/01/18 at 11:04 ; Status DC Potassium Chloride/Sodium Chloride 1,000 ml @ 75 mls/hr 1X ONCE IV Last administered on 06/30/18at 11:03; Start 06/30/18 at 11:00; Stop 07/01/18 at 00:19 ; Status DC Magnesium Sulfate 50 ml @ 25 mls/hr 1X ONCE IV Last administered on 06/30/18at 20:41; Start 06/30/18 at 11:45; Stop 06/30/18 at 13:44; Status DC Sodium Chloride 1,000 ml @ 100 mls/hr Q10H IV ; Start 06/30/18 at 11:45; Stop 06/30/18 at 11:46; Status DC Piperacillin Sod/ Tazobactam Sod 3.375 gm/Sodium Chloride 50 ml @ 100 mls/hr Q6HRS IV ; Start 06/30/18 at 18:00; Stop 06/30/18 at 18:00; Status DC Magnesium Sulfate/ Dextrose 100 ml @ 25 mls/hr 1X ONCE IV Last administered on 06/30/18at 13:47; Start 06/30/18 at 13:00; Stop 06/30/18 at 16:59; Status DC Potassium Chloride/Sodium Chloride 1,000 ml @ 75 mls/hr [id number] IV ; Start at 12:30; Status UNV Potassium Chloride/Water 50 ml @ 50 mls/hr Q1H IV Last administered on at 18:16; Start 06/30/18 at 13:00; Stop 06/30/18 at 14:59; Status DC Hydromorphone HCl (Dilaudid) 2 mg PRN Q4HRS PRN IVP PAIN MILD TO MOD Last administered on 07/07/18at 14:34; Start 06/30/18 at 12:30 Hydromorphone HCl (Dilaudid) 4 mg PRN Q4HRS PRN IVP PAIN SEVERE Last administered on 07/09/18 09:08; Start 06/30/18 at 12:30 Ondansetron HCl (Zofran) 4 mg PRN Q6HRS PRN IV NAUSEA/VOMITING Last administered on 07/08/18at 23:21; Start 06/30/18 at 12:30 Amlodipine Besylate (Norvasc) 5 mg DAILY PO Last administered on 07/01/18at 08: 35; Start 07/01/18 at 09:00; Stop 07/01/18 at 11:04; Status DC Trazodone HCl (Desyrel) 50 mg PRN QHS PRN PO INSOMNIA; Start 06/30/18 at 12:30 Sertraline HCl (Zoloft) 50 mg DAILY PO Last administered on 07/09/18at 09:08; Start 07/01/18 at 09:00 Zinc Oxide (Zinc Oxide 20% Topical) 1 sang BID TP Last administered on at 09:00; Start 06/30/18 at 21:00 Lorazepam (Ativan) 0.5 mg PRN Q6HRS PRN PO ANXIETY / AGITATION Last administered on 07/09/18 03:55; Start 06/30/18 at 12:30 Acetaminophen (Tylenol) 650 mg PRN Q6HRS PRN PO MILD PAIN / TEMP Last administered on 07/01/18at 14:50; Start 06/30/18 at 12:30 Potassium Chloride 40 meq/ Dextrose/Sodium Chloride 1,020 ml @ 75 mls/hr [id number] IV Last administered on 07/01/18at 10:43; Start 06/30/18 at 14:00; Stop 07/01/18 at 21:59; Status DC Lidocaine HCl (Xylocaine 2% Topical 30gm Tube) 1 sang BID TP Last administered on 07/09/18 09:00; Start 06/30/18 at 21:00 Sodium Chloride 200 meq/Sodium Acetate 20 meq/ Potassium Chloride 120 meq/ Potassium Phosphate 6.8 mmol/Magnesium Sulfate 28 meq/ Calcium Gluconate 10 meq / Multivitamins 10 ml/Chromium/ Copper/Manganese/ Seleni/Zn 1 ml/ Total Parenteral Nutrition/Amino Acids/Dextrose/ Fat Emuls... 2,040 ml @ 85 mls/hr TPN CONT IV Last administered on 07/01/18at 22:33; Start 07/01/18 at 22:00; Stop 07/02/18 at 21:59; Status DC Info (Tpn Per Pharmacy) 1 each PRN DAILY PRN MC SEE COMMENTS Last administered on 07/03/18at 12:25; Start 07/01/18 at 13:00; Stop 07/04/18 at 10:29; Status DC Diphenhydramine HCl (Benadryl) 25 mg PRN Q6HRS PRN PO ITCHING Last administered on 07/08/18 21:52; Start 07/02/18 at 05:00 Sodium Chloride 200 meq/Sodium Acetate 20 meq/ Potassium Chloride 120 meq/ Potassium Phosphate 6.8 mmol/Magnesium Sulfate 28 meq/ Calcium Gluconate 10 meq / Multivitamins 10 ml/Chromium/ Copper/Manganese/ Seleni/Zn 1 ml/ Total Parenteral Nutrition/Amino Acids/Dextrose/ Fat Emuls... 2,040 ml @ 85 mls/hr TPN CONT IV Last administered on 07/02/18at 22:04; Start 07/02/18 at 22:00; Stop 07/03/18 at 21:59; Status DC Nystatin (Nystop) 1 sagn BID TP Last administered on 07/09/18at 09:00; Start at 11:00 Nystatin (Nystop) 1 sang BID TP ; Start 07/03/18 at 21:00; Stop 07/10/18 at 20:59 ; Status UNV Sodium Phosphate 15 mmol/Dextrose 255 ml @ 63.75 mls/ hr 1X ONCE IV Last administered on 07/03/18at 13:01; Start 07/03/18 at 13:00; Stop 07/03/18 at 16:59 ; Status DC Sodium Chloride 200 meq/Sodium Acetate 20 meq/ Sodium Phosphate 10 mmol/ Potassium Chloride 100 meq/ Potassium Phosphate 6.8 mmol/Magnesium Sulfate 28 meq/ Calcium Gluconate 10 meq/ Multivitamins 10 ml/Chromium/ Copper/Manganese/ Seleni/Zn 1 ml/ Total Parenteral Nutrition/Amino Acids/Dextro... 2,040 ml @ 85 mls/hr TPN CONT IV Last administered on 07/03/18at 23:23; Start 07/03/18 at 22: 00; Stop 07/04/18 at 21:59; Status DC Dextrose/Sodium Chloride 1,000 ml @ 80 mls/hr [id number] IV Last administered on 07/05/18at 00:05; Start 07/04/18 at 10:30; Stop 07/05/18 at 21:59; Status DC Sodium Polystyrene Sulfonate (Kayexalate) 30 gm 1X ONCE PO Last administered on 07/04/18at 11:45; Start 07/04/18 at 10:30; Stop 07/04/18 at 10:37; Status DC Furosemide (Lasix) 40 mg 1X ONCE IVP Last administered on 07/04/18at 11:43; Start 07/04/18 at 10:30; Stop 07/04/18 at 10:36; Status DC Magnesium Sulfate 50 ml @ 25 mls/hr 1X ONCE IV Last administered on 07/05/18at 11:45; Start 07/05/18 at 11:00; Stop 07/05/18 at 12:59; Status DC Info (Tpn Per Pharmacy) 1 each PRN DAILY PRN MC SEE COMMENTS Last administered on 07/08/18at 13:46; Start 07/05/18 at 10:30 Sodium Chloride 200 meq/Sodium Acetate 20 meq/ Sodium Phosphate 10 mmol/ Potassium Chloride 80 meq/ Potassium Phosphate 6.8 mmol/Magnesium Sulfate 28 meq / Calcium Gluconate 10 meq/ Multivitamins 10 ml/Chromium/ Copper/Manganese/ Seleni/Zn 1 ml/ Total Parenteral Nutrition/Amino Acids/Dextro... 1,920 ml @ 80 mls/hr TPN CONT IV Last administered on 07/05/18at 22:29; Start 07/05/18 at 22: 00; Stop 07/06/18 at 21:59; Status DC Amlodipine Besylate (Norvasc) 5 mg DAILY PO Last administered on 07/09/18at 09: 08; Start 07/06/18 at 12:00 Sodium Chloride 200 meq/Sodium Acetate 20 meq/ Sodium Phosphate 10 mmol/ Potassium Chloride 80 meq/ Potassium Phosphate 6.8 mmol/Magnesium Sulfate 28 meq / Calcium Gluconate 10 meq/ Multivitamins 10 ml/Chromium/ Copper/Manganese/ Seleni/Zn 1 ml/ Total Parenteral Nutrition/Amino Acids/Dextro... 1,920 ml @ 80 mls/hr TPN CONT IV Last administered on 07/06/18at 22:12; Start 07/06/18 at 22: 00; Stop 07/07/18 at 21:59; Status DC Sodium Chloride 200 meq/Sodium Acetate 20 meq/ Sodium Phosphate 10 mmol/ Potassium Chloride 80 meq/ Potassium Phosphate 6.8 mmol/Magnesium Sulfate 28 meq / Calcium Gluconate 10 meq/ Multivitamins 10 ml/Chromium/ Copper/Manganese/ Seleni/Zn 1 ml/ Total Parenteral Nutrition/Amino Acids/Dextro... 1,920 ml @ 80 mls/hr TPN CONT IV Last administered on 07/07/18at 22:31; Start 07/07/18 at 22: 00; Stop 07/08/18 at 21:59; Status DC Sodium Chloride 200 meq/Sodium Acetate 20 meq/ Sodium Phosphate 10 mmol/ Potassium Chloride 60 meq/ Potassium Phosphate 6.8 mmol/Magnesium Sulfate 28 meq / Calcium Gluconate 10 meq/ Multivitamins 10 ml/Chromium/ Copper/Manganese/ Seleni/Zn 1 ml/ Total Parenteral Nutrition/Amino Acids/Dextro... 1,920 ml @ 80 mls/hr TPN CONT IV Last administered on 07/08/18at 21:44; Start 07/08/18 at 22: 00; Stop 07/09/18 at 21:59 Active Scripts Active Ambien (Zolpidem Tartrate) 5 Mg Tablet 5 Mg PO PRN QHS PRN 30 Days [Tpn Per Pharmacy] 1 EACH Each 1 Each MC PRN DAILY PRN TPN at 85cc/hour [Pantoprazole] 40 MG Tablet.dr 40 Mg PO DAILYAC Amlodipine Besylate 10 Mg Tablet 5 Mg PO DAILY Tylenol (Acetaminophen) 325 Mg Tablet 650 Mg PO PRN Q6HRS PRN 30 Days Sertraline Hcl 50 Mg Tablet 50 Mg PO DAILY 30 Days Lidocaine 35.44 Gm Oint...g. 1 Sang TP BID Reported Zofran Odt (Ondansetron) 4 Mg Tab.rapdis 1 Tab SL PRN Q8HRS PRN Zinc Oxide 56.7 Gm Oint...g. 56.7 Gm TP PRN BID Dilaudid (Hydromorphone Hcl) 2 Mg Tablet 1 Tab PO PRN QID PRN Lorazepam 0.5 Mg Tablet 0.5 Mg PO Q6HRS PRN Vitals/I & O Vital Sign - Last 24 Hours 07/08/18 07/08/18 07/08/18 07/08/18 11:23 15:06 15:14 18:39 Temp 98.5 98.5 98.5 98.5 Pulse 84 100 Resp 18 17 18 22 B/P (MAP) 156/90 (112) 140/89 (106) Pulse Ox 98 99 O2 Delivery Room Air Room Air Room Air Room Air 07/08/18 07/08/18 07/08/18 07/08/18 19:10 19:46 23:15 23:21 Temp 98.0 98.2 98.0 98.2 Pulse 99 98 Resp 12 16 B/P (MAP) 162/84 (110) 161/98 (119) Pulse Ox 100 100 O2 Delivery Room Air Room Air Room Air Room Air 07/09/18 07/09/18 07/09/18 07/09/18 03:15 03:55 07:00 09:08 Temp 98.3 98.0 98.3 98.0 Pulse 94 88 Resp 16 18 17 B/P (MAP) 171/90 (117) 134/76 (95) Pulse Ox 100 100 O2 Delivery Room Air Room Air Room Air Room Air 07/09/18 07/09/18 09:08 09:38 Pulse 88 Resp 17 B/P (MAP) 134/76 O2 Delivery Room Air Intake and Output 07/08/18 07/08/18 07/09/18 15:01 23:01 07:01 Intake Total 100 ml 100 ml 400 ml Output Total 600 ml Balance 100 ml 100 ml -200 ml Nutrition Consultation Dietary Evaluation: Recommendations by RD: PPN/TPN Comments: continue with gi soft diet and Home TPN Expected Outcomes/Goals: wt maintainance Malnutrition Findings: Body Fat Depletion (Non Severe: Mild Depletion Weight Status: Appropriate BENITA LUTZ MD Jul 09, 2018 11:11
[2018-07-09 11:15] VITALS: BP 134/77
[2018-07-09] MEDS ORDERED: FUROSEMIDE 40 MG/4 ML VIAL. IVP ONE (11:15)
[2018-07-09] MEDS ORDERED: IV NORMAL SALINE 1000ML BAG 1,000 ML IV SCH (11:15)
[2018-07-09] MEDS: TPN PER PHARMACY MC PRN ×2 (13:38→13:44)
--- NOTE | 2018-07-09 13:44 | NUR ---
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 Height: 5 feet, 3 inches Weight: 50.407249 kg Current diet: GI SOFT LABS: Sodium: 139 Potassium: 5.2 Chloride: 106 Calcium: 9.3 Corrected Calcium: 10.18 Magnesium: 2.6 CO2: 25 SCr: 0.8 Glucose: 96-113 Albumin: 2.9 AST: 13 (06/30) ALT: 14 (06/30) TPN FORMULA: TPN TYPE: Central Continuous AMINO ACIDS: 90 gm DEXTROSE: 275 gm LIPIDS: 35 gm SODIUM CHLORIDE: 200 mEq SODIUM ACETATE: 20 mEq SODIUM PHOSPHATE: 10 mmol POTASSIUM CHLORIDE: 40 mEq POTASSIUM ACETATE: - mEq POTASSIUM PHOSPHATE: 6.8 mmol MAGNESIUM: 24 mEq CALCIUM: 10 mEq INSULIN: - units MULTIPLE VITAMIN: 10 ml TRACE ELEMENTS: MTE5 1ML ml(s) TPN PLAN: Orders per Dr. Cisneros for decreased potassium chloride (60 meq to 40 meq) for plasma K 5.2 this AM. Magnesium high at 2.6, decrease magnesium to 24 meq from 28. Current TPN bag to be stopped today with NS@80ml/h. Ionized calcium high normal, no changes to calcium. BMP, Mg in AM. R: Continue TPN ABOVE. Will monitor electrolytes, glucose, and tolerance to TPN. CICI DURAN [facility], 07/09/18 [id number]
[2018-07-09 14:59] VITALS: BP 151/70
[2018-07-09] MEDS: ONDANSETRON PF 4 MG/2 ML VIAL. IV PRN (19:33)
[2018-07-09 19:57] VITALS: BP 169/106
[2018-07-09] MEDS ORDERED: AMINO ACID IV SCH ×12 (22:00)
[2018-07-09] MEDS ORDERED: [UNRECOGNIZED DRUG - OTHER] IV SCH ×12 (22:00)
[2018-07-09] MEDS ORDERED: TOTAL PARENTERAL NUTRITION IV SCH ×12 (22:00)
[2018-07-09] MEDS ORDERED: DEXTROSE 70% IV SCH ×12 (22:00)
[2018-07-09 23:43] VITALS: BP 130/85
[2018-07-10] MEDS: HYDROmorphone 2 MG/ML VIAL IVP PRN ×6 (01:52→23:12)
[2018-07-10 03:08] VITALS: BP 121/66
[2018-07-10] MEDS: LORazepam 0.5 MG TABLET PO PRN ×2 (04:28→13:10)
[2018-07-10 07:00] VITALS: BP 133/82
[2018-07-10 07:19] LABS: BASO # 0.1 x10^3/uL (0.0-0.2); BASO % 2 % (0-3); EOS # 0.7 x10^3/uL (0.0-0.7); EOS % 14 % (0-3); HEMATOCRIT 27.8 % (36.0-47.0); HEMOGLOBIN 8.9 g/dL (12.0-15.5); LYMPH % 20 % (24-48); MEAN CORPUSCULAR HEMOGLOBIN 26 pg (25-35); MEAN CORPUSCULAR HGB CONC 32 g/dL (31-37); MEAN CORPUSCULAR VOLUME 82 fL (79-100); MONO # 0.4 x10^3/uL (0.0-1.1); MONO % 7 % (0-9); NEUT % 57 % (31-73); PLATELET COUNT 384 x10^3/uL (140-400); RED BLOOD COUNT 3.39 x10^6/uL (3.50-5.40); RED CELL DISTRIBUTION WIDTH 19.4 % (11.5-14.5); WHITE BLOOD COUNT 5.3 x10^3/uL (4.0-11.0)
[2018-07-10 07:21] LABS: CALCIUM 9.1 mg/dL (8.5-10.1); CREATININE 0.8 mg/dL (0.6-1.0); GFR 87.7; MAGNESIUM 2.2 mg/dL (1.8-2.4); POTASSIUM 4.3 mmol/L (3.5-5.1)
[2018-07-10] MEDS: ZINC OXIDE 20% TOPICAL OINTMENT 28GM TUBE. TP SCH ×2 (09:00→21:59)
[2018-07-10] MEDS: NYSTATIN TOPICAL POWDER 15GM BOTTLE. TP SCH ×2 (09:00→21:59)
[2018-07-10] MEDS: LIDOCAINE 2% TOPICAL JELLY 30GM TUBE. TP SCH ×2 (09:00→21:59)
[2018-07-10] MEDS: SERTRALINE 50 MG TABLET. PO SCH (10:08)
[2018-07-10] MEDS: amLODIPine BESYLATE 5 MG TABLET PO SCH (10:08)
--- NOTE | 2018-07-10 10:52 | PDOC ---
PROGRESS NOTES Subjective Subjective vomited several times last night but feels better and took zofran. bowels are okay. lab reviewed. hgb 8.9 and was 10.2. potassium and magnesium is okay. bp is okay. Objective Objective Vital Signs Date Time Temp Pulse Resp B/P (MAP) Pulse Ox O2 Delivery O2 Flow Rate FiO2 07/10/18 10:09 18 Room Air 07/10/18 10:08 92 133/82 07/10/18 07:00 98.6 99 98.6 Intake and Output 07/10/18 07:01 Intake Total 860 ml Output Total 300 ml Balance 560 ml Intake Oral 860 ml Output Urine Total 300 ml # Voids 7 Physical Exam Abdomen: Soft, Other (EC fistula) Heart: Regular rate, Normal S1, Normal S2 Extremities: Other (1 to 2 plus edema left foot and no edema right foot) General: Alert HEENT: Atraumatic Lungs: Clear to auscultation Neuro: Normal speech Psych/Mental Status: Mental status NL Skin: No rashes Assessment Assessment ProblemsSevere hypokalemia. resolved 2. hypomagnesemia. resolved 3. Mild hyponatremia. resolved 4. Anemia of chronic disease. hgb lower 5. Enterocutaneous fistula. high output last night 6. Enterovesical fistula. 7. Severe protein calorie malnutrition. 8. Hypertension 9. Chronic abdominal pain secondary to adhesions hyperkalemia resolved leg edema better E. coli in urine but has enterovesical fistula fever once 07/01 without recurrence. wbc normal Medical Problems: (1) Low magnesium level Status: Acute (2) Low serum potassium Status: Acute Plan Plan of Care continue TPN labs tomorrow zofran prn anticipate dismissal on Wednesday as home health pharmacy cannot be contacted until Wednesday to make home TPN in advance Comment Review of Relevant I have reviewed the following items lucila (where applicable) has been applied. Labs Laboratory Tests Test 07/08/18 12:49 07/08/18 18:52 07/09/18 04:20 07/09/18 06:56 Glucose (Fingerstick) 175 mg/dL (70-99) 97 mg/dL (70-99) 113 mg/dL (70-99) White Blood Count 8.0 x10^3/uL (4.0-11.0) Red Blood Count 3.92 x10^6/uL (3.50-5.40) Hemoglobin 10.2 g/dL (12.0-15.5) Hematocrit 32.3 % (36.0-47.0) Mean Corpuscular Volume 82 fL (79-100) Mean Corpuscular Hemoglobin 26 pg (25-35) Mean Corpuscular Hemoglobin Concent 32 g/dL (31-37) Red Cell Distribution Width 19.1 % (11.5-14.5) Platelet Count 469 x10^3/uL (140-400) Neutrophils (%) (Auto) 72 % (31-73) Lymphocytes (%) (Auto) 11 % (24-48) Monocytes (%) (Auto) 7 % (0-9) Eosinophils (%) (Auto) 8 % (0-3) Basophils (%) (Auto) 1 % (0-3) Neutrophils # (Auto) 5.7 x10^3uL (1.8-7.7) Lymphocytes # (Auto) 0.9 x10^3/uL (1.0-4.8) Monocytes # (Auto) 0.6 x10^3/uL (0.0-1.1) Eosinophils # (Auto) 0.7 x10^3/uL (0.0-0.7) Basophils # (Auto) 0.1 x10^3/uL (0.0-0.2) Sodium Level 139 mmol/L (136-145) Potassium Level 5.2 mmol/L (3.5-5.1) Chloride Level 106 mmol/L (98-107) Carbon Dioxide Level 25 mmol/L (21-32) Anion Gap 8 (6-14) Blood Urea Nitrogen 33 mg/dL (7-20) Creatinine 0.8 mg/dL (0.6-1.0) Estimated GFR (Cockcroft-Gault) 87.7 Glucose Level 100 mg/dL (70-99) Calcium Level 9.3 mg/dL (8.5-10.1) Ionized Calcium 1.26 mmol/L (1.13-1.32) Magnesium Level 2.6 mg/dL (1.8-2.4) Test 07/09/18 12:08 07/09/18 19:04 07/10/18 00:03 07/10/18 06:24 Glucose (Fingerstick) 96 mg/dL (70-99) 107 mg/dL (70-99) 183 mg/dL (70-99) 97 mg/dL (70-99) Test 07/10/18 07:00 White Blood Count 5.3 x10^3/uL (4.0-11.0) Red Blood Count 3.39 x10^6/uL (3.50-5.40) Hemoglobin 8.9 g/dL (12.0-15.5) Hematocrit 27.8 % (36.0-47.0) Mean Corpuscular Volume 82 fL (79-100) Mean Corpuscular Hemoglobin 26 pg (25-35) Mean Corpuscular Hemoglobin Concent 32 g/dL (31-37) Red Cell Distribution Width 19.4 % (11.5-14.5) Platelet Count 384 x10^3/uL (140-400) Neutrophils (%) (Auto) 57 % (31-73) Lymphocytes (%) (Auto) 20 % (24-48) Monocytes (%) (Auto) 7 % (0-9) Eosinophils (%) (Auto) 14 % (0-3) Basophils (%) (Auto) 2 % (0-3) Neutrophils # (Auto) 3.0 x10^3uL (1.8-7.7) Lymphocytes # (Auto) 1.0 x10^3/uL (1.0-4.8) Monocytes # (Auto) 0.4 x10^3/uL (0.0-1.1) Eosinophils # (Auto) 0.7 x10^3/uL (0.0-0.7) Basophils # (Auto) 0.1 x10^3/uL (0.0-0.2) Sodium Level 139 mmol/L (136-145) Potassium Level 4.3 mmol/L (3.5-5.1) Chloride Level 106 mmol/L (98-107) Carbon Dioxide Level 26 mmol/L (21-32) Anion Gap 7 (6-14) Blood Urea Nitrogen 28 mg/dL (7-20) Creatinine 0.8 mg/dL (0.6-1.0) Estimated GFR (Cockcroft-Gault) 87.7 Glucose Level 90 mg/dL (70-99) Calcium Level 9.1 mg/dL (8.5-10.1) Magnesium Level 2.2 mg/dL (1.8-2.4) Laboratory Tests Test 07/09/18 12:08 07/09/18 19:04 07/10/18 00:03 07/10/18 06:24 Glucose (Fingerstick) 96 mg/dL (70-99) 107 mg/dL (70-99) 183 mg/dL (70-99) 97 mg/dL (70-99) Test 07/10/18 07:00 White Blood Count 5.3 x10^3/uL (4.0-11.0) Red Blood Count 3.39 x10^6/uL (3.50-5.40) Hemoglobin 8.9 g/dL (12.0-15.5) Hematocrit 27.8 % (36.0-47.0) Mean Corpuscular Volume 82 fL (79-100) Mean Corpuscular Hemoglobin 26 pg (25-35) Mean Corpuscular Hemoglobin Concent 32 g/dL (31-37) Red Cell Distribution Width 19.4 % (11.5-14.5) Platelet Count 384 x10^3/uL (140-400) Neutrophils (%) (Auto) 57 % (31-73) Lymphocytes (%) (Auto) 20 % (24-48) Monocytes (%) (Auto) 7 % (0-9) Eosinophils (%) (Auto) 14 % (0-3) Basophils (%) (Auto) 2 % (0-3) Neutrophils # (Auto) 3.0 x10^3uL (1.8-7.7) Lymphocytes # (Auto) 1.0 x10^3/uL (1.0-4.8) Monocytes # (Auto) 0.4 x10^3/uL (0.0-1.1) Eosinophils # (Auto) 0.7 x10^3/uL (0.0-0.7) Basophils # (Auto) 0.1 x10^3/uL (0.0-0.2) Sodium Level 139 mmol/L (136-145) Potassium Level 4.3 mmol/L (3.5-5.1) Chloride Level 106 mmol/L (98-107) Carbon Dioxide Level 26 mmol/L (21-32) Anion Gap 7 (6-14) Blood Urea Nitrogen 28 mg/dL (7-20) Creatinine 0.8 mg/dL (0.6-1.0) Estimated GFR (Cockcroft-Gault) 87.7 Glucose Level 90 mg/dL (70-99) Calcium Level 9.1 mg/dL (8.5-10.1) Magnesium Level 2.2 mg/dL (1.8-2.4) Microbiology 06/30/18 Urine Culture - Final, Complete 06/30/18 Urine Culture Result 1 (ROYA) - Final, Complete 06/30/18 Antimicrobic Susceptibility - Final, Complete Medications Current Medications Piperacillin Sod/ Tazobactam Sod (Zosyn Per Pharmacy) 1 each PRN DAILY PRN MC SEE COMMENTS; Start 06/30/18 at 10:30; Stop 06/30/18 at 12:46; Status DC Piperacillin Sod/ Tazobactam Sod 3.375 gm/Sodium Chloride 50 ml @ 100 mls/hr ONCE ONCE IV Last administered on 06/30/18at 11:03; Start 06/30/18 at 10:30; Stop 06/30/18 at 10:59; Status DC Sodium Chloride 500 ml @ 500 mls/hr 1X ONCE IV ; Start 06/30/18 at 10:30; Stop 06/30/18 at 10:55; Status DC Fentanyl Citrate (Fentanyl 2ml Vial) 25 mcg 1X PRN PRN IV SEVERE PAIN Last administered on 06/30/18at 10:56; Start 06/30/18 at 10:45; Stop 07/01/18 at 11:04 ; Status DC Potassium Chloride/Sodium Chloride 1,000 ml @ 75 mls/hr 1X ONCE IV Last administered on 06/30/18at 11:03; Start 06/30/18 at 11:00; Stop 07/01/18 at 00:19 ; Status DC Magnesium Sulfate 50 ml @ 25 mls/hr 1X ONCE IV Last administered on 06/30/18at 20:41; Start 06/30/18 at 11:45; Stop 06/30/18 at 13:44; Status DC Sodium Chloride 1,000 ml @ 100 mls/hr Q10H IV ; Start 06/30/18 at 11:45; Stop 06/30/18 at 11:46; Status DC Piperacillin Sod/ Tazobactam Sod 3.375 gm/Sodium Chloride 50 ml @ 100 mls/hr Q6HRS IV ; Start 06/30/18 at 18:00; Stop 06/30/18 at 18:00; Status DC Magnesium Sulfate/ Dextrose 100 ml @ 25 mls/hr 1X ONCE IV Last administered on 06/30/18at 13:47; Start 06/30/18 at 13:00; Stop 06/30/18 at 16:59; Status DC Potassium Chloride/Sodium Chloride 1,000 ml @ 75 mls/hr [id number] IV ; Start at 12:30; Status UNV Potassium Chloride/Water 50 ml @ 50 mls/hr Q1H IV Last administered on at 18:16; Start 06/30/18 at 13:00; Stop 06/30/18 at 14:59; Status DC Hydromorphone HCl (Dilaudid) 2 mg PRN Q4HRS PRN IVP PAIN MILD TO MOD Last administered on 07/10/18at 10:09; Start 06/30/18 at 12:30 Hydromorphone HCl (Dilaudid) 4 mg PRN Q4HRS PRN IVP PAIN SEVERE Last administered on 07/09/18at 13:05; Start 06/30/18 at 12:30 Ondansetron HCl (Zofran) 4 mg PRN Q6HRS PRN IV NAUSEA/VOMITING Last administered on 07/09/18at 19:33; Start 06/30/18 at 12:30 Amlodipine Besylate (Norvasc) 5 mg DAILY PO Last administered on 07/01/18at 08: 35; Start 07/01/18 at 09:00; Stop 07/01/18 at 11:04; Status DC Trazodone HCl (Desyrel) 50 mg PRN QHS PRN PO INSOMNIA; Start 06/30/18 at 12:30 Sertraline HCl (Zoloft) 50 mg DAILY PO Last administered on 07/10/18 10:08; Start 07/01/18 at 09:00 Zinc Oxide (Zinc Oxide 20% Topical) 1 sang BID TP Last administered on 09:00; Start 06/30/18 at 21:00 Lorazepam (Ativan) 0.5 mg PRN Q6HRS PRN PO ANXIETY / AGITATION Last administered on 07/10/18 04:28; Start 06/30/18 at 12:30 Acetaminophen (Tylenol) 650 mg PRN Q6HRS PRN PO MILD PAIN / TEMP Last administered on 07/01/18 14:50; Start 06/30/18 at 12:30 Potassium Chloride 40 meq/ Dextrose/Sodium Chloride 1,020 ml @ 75 mls/hr [id number] IV Last administered on 07/01/18 10:43; Start 06/30/18 at 14:00; Stop 07/01/18 at 21:59; Status DC Lidocaine HCl (Xylocaine 2% Topical 30gm Tube) 1 sang BID TP Last administered on 07/10/18at 09:00; Start 06/30/18 at 21:00 Sodium Chloride 200 meq/Sodium Acetate 20 meq/ Potassium Chloride 120 meq/ Potassium Phosphate 6.8 mmol/Magnesium Sulfate 28 meq/ Calcium Gluconate 10 meq / Multivitamins 10 ml/Chromium/ Copper/Manganese/ Seleni/Zn 1 ml/ Total Parenteral Nutrition/Amino Acids/Dextrose/ Fat Emuls... 2,040 ml @ 85 mls/hr TPN CONT IV Last administered on 07/01/18at 22:33; Start 07/01/18 at 22:00; Stop 07/02/18 at 21:59; Status DC Info (Tpn Per Pharmacy) 1 each PRN DAILY PRN MC SEE COMMENTS Last administered on 07/03/18at 12:25; Start 07/01/18 at 13:00; Stop 07/04/18 at 10:29; Status DC Diphenhydramine HCl (Benadryl) 25 mg PRN Q6HRS PRN PO ITCHING Last administered on 07/08/18at 21:52; Start 07/02/18 at 05:00 Sodium Chloride 200 meq/Sodium Acetate 20 meq/ Potassium Chloride 120 meq/ Potassium Phosphate 6.8 mmol/Magnesium Sulfate 28 meq/ Calcium Gluconate 10 meq / Multivitamins 10 ml/Chromium/ Copper/Manganese/ Seleni/Zn 1 ml/ Total Parenteral Nutrition/Amino Acids/Dextrose/ Fat Emuls... 2,040 ml @ 85 mls/hr TPN CONT IV Last administered on 07/02/18at 22:04; Start 07/02/18 at 22:00; Stop 07/03/18 at 21:59; Status DC Nystatin (Nystop) 1 sang BID TP Last administered on 07/10/18at 09:00; Start at 11:00 Nystatin (Nystop) 1 sang BID TP ; Start 07/03/18 at 21:00; Stop 07/10/18 at 20:59 ; Status UNV Sodium Phosphate 15 mmol/Dextrose 255 ml @ 63.75 mls/ hr 1X ONCE IV Last administered on 07/03/18at 13:01; Start 07/03/18 at 13:00; Stop 07/03/18 at 16:59 ; Status DC Sodium Chloride 200 meq/Sodium Acetate 20 meq/ Sodium Phosphate 10 mmol/ Potassium Chloride 100 meq/ Potassium Phosphate 6.8 mmol/Magnesium Sulfate 28 meq/ Calcium Gluconate 10 meq/ Multivitamins 10 ml/Chromium/ Copper/Manganese/ Seleni/Zn 1 ml/ Total Parenteral Nutrition/Amino Acids/Dextro... 2,040 ml @ 85 mls/hr TPN CONT IV Last administered on 07/03/18at 23:23; Start 07/03/18 at 22: 00; Stop 07/04/18 at 21:59; Status DC Dextrose/Sodium Chloride 1,000 ml @ 80 mls/hr [id number] IV Last administered on 07/05/18at 00:05; Start 07/04/18 at 10:30; Stop 07/05/18 at 21:59; Status DC Sodium Polystyrene Sulfonate (Kayexalate) 30 gm 1X ONCE PO Last administered on 07/04/18at 11:45; Start 07/04/18 at 10:30; Stop 07/04/18 at 10:37; Status DC Furosemide (Lasix) 40 mg 1X ONCE IVP Last administered on 07/04/18at 11:43; Start 07/04/18 at 10:30; Stop 07/04/18 at 10:36; Status DC Magnesium Sulfate 50 ml @ 25 mls/hr 1X ONCE IV Last administered on 07/05/18at 11:45; Start 07/05/18 at 11:00; Stop 07/05/18 at 12:59; Status DC Info (Tpn Per Pharmacy) 1 each PRN DAILY PRN MC SEE COMMENTS Last administered on 07/09/18at 13:44; Start 07/05/18 at 10:30 Sodium Chloride 200 meq/Sodium Acetate 20 meq/ Sodium Phosphate 10 mmol/ Potassium Chloride 80 meq/ Potassium Phosphate 6.8 mmol/Magnesium Sulfate 28 meq / Calcium Gluconate 10 meq/ Multivitamins 10 ml/Chromium/ Copper/Manganese/ Seleni/Zn 1 ml/ Total Parenteral Nutrition/Amino Acids/Dextro... 1,920 ml @ 80 mls/hr TPN CONT IV Last administered on 07/05/18at 22:29; Start 07/05/18 at 22: 00; Stop 07/06/18 at 21:59; Status DC Amlodipine Besylate (Norvasc) 5 mg DAILY PO Last administered on 07/10/18at 10: 08; Start 07/06/18 at 12:00 Sodium Chloride 200 meq/Sodium Acetate 20 meq/ Sodium Phosphate 10 mmol/ Potassium Chloride 80 meq/ Potassium Phosphate 6.8 mmol/Magnesium Sulfate 28 meq / Calcium Gluconate 10 meq/ Multivitamins 10 ml/Chromium/ Copper/Manganese/ Seleni/Zn 1 ml/ Total Parenteral Nutrition/Amino Acids/Dextro... 1,920 ml @ 80 mls/hr TPN CONT IV Last administered on 07/06/18at 22:12; Start 07/06/18 at 22: 00; Stop 07/07/18 at 21:59; Status DC Sodium Chloride 200 meq/Sodium Acetate 20 meq/ Sodium Phosphate 10 mmol/ Potassium Chloride 80 meq/ Potassium Phosphate 6.8 mmol/Magnesium Sulfate 28 meq / Calcium Gluconate 10 meq/ Multivitamins 10 ml/Chromium/ Copper/Manganese/ Seleni/Zn 1 ml/ Total Parenteral Nutrition/Amino Acids/Dextro... 1,920 ml @ 80 mls/hr TPN CONT IV Last administered on 07/07/18at 22:31; Start 07/07/18 at 22: 00; Stop 07/08/18 at 21:59; Status DC Sodium Chloride 200 meq/Sodium Acetate 20 meq/ Sodium Phosphate 10 mmol/ Potassium Chloride 60 meq/ Potassium Phosphate 6.8 mmol/Magnesium Sulfate 28 meq / Calcium Gluconate 10 meq/ Multivitamins 10 ml/Chromium/ Copper/Manganese/ Seleni/Zn 1 ml/ Total Parenteral Nutrition/Amino Acids/Dextro... 1,920 ml @ 80 mls/hr TPN CONT IV Last administered on 07/08/18at 21:44; Start 07/08/18 at 22: 00; Stop 07/09/18 at 21:59; Status DC Furosemide (Lasix) 40 mg 1X ONCE IVP Last administered on 07/09/18at 11:26; Start 07/09/18 at 11:15; Stop 07/09/18 at 11:16; Status DC Sodium Chloride 1,000 ml @ 80 mls/hr [id number] IV Last administered on at 11:26; Start 07/09/18 at 11:15; Stop 07/09/18 at 21:59; Status DC Sodium Chloride 200 meq/Sodium Acetate 20 meq/ Sodium Phosphate 10 mmol/ Potassium Chloride 40 meq/ Potassium Phosphate 6.8 mmol/Magnesium Sulfate 24 meq / Calcium Gluconate 10 meq/ Multivitamins 10 ml/Chromium/ Copper/Manganese/ Seleni/Zn 1 ml/ Total Parenteral Nutrition/Amino Acids/Dextro... 1,920 ml @ 80 mls/hr TPN CONT IV Last administered on 07/09/18at 22:35; Start 07/09/18 at 22: 00; Stop 07/10/18 at 21:59 Active Scripts Active Ambien (Zolpidem Tartrate) 5 Mg Tablet 5 Mg PO PRN QHS PRN 30 Days [Tpn Per Pharmacy] 1 EACH Each 1 Each MC PRN DAILY PRN TPN at 85cc/hour [Pantoprazole] 40 MG Tablet.dr 40 Mg PO DAILYAC Amlodipine Besylate 10 Mg Tablet 5 Mg PO DAILY Tylenol (Acetaminophen) 325 Mg Tablet 650 Mg PO PRN Q6HRS PRN 30 Days Sertraline Hcl 50 Mg Tablet 50 Mg PO DAILY 30 Days Lidocaine 35.44 Gm Oint...g. 1 Sang TP BID Reported Zofran Odt (Ondansetron) 4 Mg Tab.rapdis 1 Tab SL PRN Q8HRS PRN Zinc Oxide 56.7 Gm Oint...g. 56.7 Gm TP PRN BID Dilaudid (Hydromorphone Hcl) 2 Mg Tablet 1 Tab PO PRN QID PRN Lorazepam 0.5 Mg Tablet 0.5 Mg PO Q6HRS PRN Vitals/I & O Vital Sign - Last 24 Hours 07/09/18 07/09/18 07/09/18 07/09/18 11:15 13:05 14:59 17:10 Temp 97.3 97.9 97.3 97.9 Pulse 90 95 Resp 18 17 20 17 B/P (MAP) 134/77 (96) 151/70 (97) Pulse Ox 99 97 O2 Delivery Room Air Room Air Room Air Room Air 07/09/18 07/09/18 07/09/18 07/09/18 19:57 20:00 21:18 23:43 Temp 98.4 98.0 98.4 98.0 Pulse 101 85 Resp 16 20 B/P (MAP) 169/106 (127) 130/85 (100) Pulse Ox 92 92 100 O2 Delivery Room Air Room Air Room Air Room Air 07/10/18 07/10/18 07/10/18 07/10/18 01:52 02:30 03:08 06:30 Temp 98.1 98.1 Pulse 77 Resp 20 B/P (MAP) 121/66 (84) Pulse Ox 100 100 98 98 O2 Delivery Room Air Room Air Room Air 07/10/18 07/10/18 07/10/18 07/10/18 07:00 07:00 08:00 10:08 Temp 98.6 98.6 Pulse 92 92 Resp 17 18 B/P (MAP) 133/82 (99) 133/82 Pulse Ox 99 O2 Delivery Room Air Room Air Room Air 07/10/18 10:09 Resp 18 O2 Delivery Room Air Intake and Output 07/09/18 07/09/18 07/10/18 15:01 23:01 07:01 Intake Total 860 ml Output Total 300 ml Balance 560 ml Nutrition Consultation Dietary Evaluation: Recommendations by RD: PPN/TPN Comments: continue with gi soft diet and Home TPN Expected Outcomes/Goals: wt maintainance Malnutrition Findings: Body Fat Depletion (Non Severe: Mild Depletion Weight Status: Appropriate BENITA LUTZ MD Jul 10, 2018 10:52
[2018-07-10 13:24] LABS: FECAL OB PT NEGATIVE (NEG)
[2018-07-10] MEDS: TPN PER PHARMACY MC PRN (14:04)
--- NOTE | 2018-07-10 14:07 | NUR ---
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; [employer] TPN Height: 5 feet, 3 inches Weight: 51.257025 kg Current diet: GI SOFT LABS: Sodium: 139 Potassium: 4.3 Chloride: 106 Calcium: 9.1 Corrected Calcium: 9.98 Magnesium: 2.2 CO2: 26 SCr: 0.8 Glucose: 96-113 Albumin: 2.9 AST: 13 (06/30) ALT: 14 (06/30) TPN FORMULA: TPN TYPE: Central Continuous AMINO ACIDS: 90 gm DEXTROSE: 275 gm LIPIDS: 35 gm SODIUM CHLORIDE: 200 mEq SODIUM ACETATE: 20 mEq SODIUM PHOSPHATE: 10 mmol POTASSIUM CHLORIDE: 40 mEq POTASSIUM ACETATE: - mEq POTASSIUM PHOSPHATE: 6.8 mmol MAGNESIUM: 24 mEq CALCIUM: 10 mEq INSULIN: - units MULTIPLE VITAMIN: 10 ml TRACE ELEMENTS: MTE5 1ML ml(s) TPN PLAN: cont same tpn, anticipate dc home wednesday. R: Continue TPN at same rate Will monitor electrolytes, glucose, and tolerance to TPN. MARQUEZ FIGUEROA [facility], 07/10/18 [id number]
[2018-07-10 15:00] VITALS: BP 154/87
[2018-07-10] MEDS: diphenhydrAMINE HCL 25 MG CAPSULE PO PRN (17:48)
[2018-07-10 19:55] VITALS: BP 148/85
[2018-07-10] MEDS ORDERED: DEXTROSE 70% IV SCH ×12 (22:00)
[2018-07-10] MEDS ORDERED: TOTAL PARENTERAL NUTRITION IV SCH ×12 (22:00)
[2018-07-10] MEDS ORDERED: AMINO ACID IV SCH ×12 (22:00)
[2018-07-10] MEDS ORDERED: [UNRECOGNIZED DRUG - OTHER] IV SCH ×12 (22:00)
[2018-07-10] MEDS: ONDANSETRON PF 4 MG/2 ML VIAL. IV PRN (23:09)
[2018-07-10 23:44] VITALS: BP 152/89
[2018-07-11 03:18] VITALS: BP 174/86
[2018-07-11] MEDS: HYDROmorphone 2 MG/ML VIAL IVP PRN ×5 (03:42→20:36)
[2018-07-11 04:27] LABS: BASO # 0.1 x10^3/uL (0.0-0.2); BASO % 3 % (0-3); EOS # 0.7 x10^3/uL (0.0-0.7); EOS % 12 % (0-3); HEMATOCRIT 29.6 % (36.0-47.0); HEMOGLOBIN 9.5 g/dL (12.0-15.5); LYMPH # 1.4 x10^3/uL (1.0-4.8); LYMPH % 23 % (24-48); MEAN CORPUSCULAR HEMOGLOBIN 26 pg (25-35); MEAN CORPUSCULAR HGB CONC 32 g/dL (31-37); MEAN CORPUSCULAR VOLUME 83 fL (79-100); MONO # 0.4 x10^3/uL (0.0-1.1); MONO % 6 % (0-9); NEUT # 3.2 x10^3uL (1.8-7.7); NEUT % 56 % (31-73); PLATELET COUNT 457 x10^3/uL (140-400); RED BLOOD COUNT 3.58 x10^6/uL (3.50-5.40); RED CELL DISTRIBUTION WIDTH 19.9 % (11.5-14.5); WHITE BLOOD COUNT 5.8 x10^3/uL (4.0-11.0)
[2018-07-11 05:34] LABS: CALCIUM 9.5 mg/dL (8.5-10.1); CREATININE 0.8 mg/dL (0.6-1.0); GFR 87.7; MAGNESIUM 2.3 mg/dL (1.8-2.4); POTASSIUM 4.3 mmol/L (3.5-5.1)
[2018-07-11 07:00] VITALS: BP 161/95
[2018-07-11] MEDS: LIDOCAINE 2% TOPICAL JELLY 30GM TUBE. TP SCH ×2 (09:00→20:46)
--- NOTE | 2018-07-11 09:51 | PDOC ---
PROGRESS NOTES Subjective Subjective feels better. lab reviewed. afebrile. bp high and will give extra dose of amlodipine today Objective Objective Vital Signs Date Time Temp Pulse Resp B/P (MAP) Pulse Ox O2 Delivery O2 Flow Rate FiO2 07/11/18 07:42 100 Room Air 07/11/18 07:00 97.8 88 18 161/95 (117) 97.8 Intake and Output 07/11/18 07:01 Intake Total 1650 ml Output Total 203 ml Balance 1447 ml Intake Oral 1650 ml Output Urine Total 203 ml # Voids 4 Physical Exam Abdomen: Soft, Other (EC fistula) Heart: Regular rate, Normal S1, Normal S2 Extremities: Other (2 plus edema left foot) General: Alert HEENT: Atraumatic Lungs: Clear to auscultation Neuro: Normal speech Psych/Mental Status: Mental status NL Skin: No rashes Assessment Assessment ProblemsSevere hypokalemia. resolved 2. hypomagnesemia. resolved 3. Mild hyponatremia. resolved 4. Anemia of chronic disease. hgb lower 5. Enterocutaneous fistula. high output last night 6. Enterovesical fistula. 7. Severe protein calorie malnutrition. 8. Hypertension 9. Chronic abdominal pain secondary to adhesions hyperkalemia resolved leg edema better E. coli in urine but has enterovesical fistula fever once 07/01 without recurrence. wbc normal Medical Problems: (1) Low magnesium level Status: Acute (2) Low serum potassium Status: Acute Plan Plan of Care continue TPN extra amlodipine dose now lab tomorrow anticipate dismissal tomorrow with home TPN pharmacist to speak with out patient home health pharmacist to make TPN in advance so ready tomorrow when she is dismissed Comment Review of Relevant I have reviewed the following items lucila (where applicable) has been applied. Labs Laboratory Tests Test 07/09/18 12:08 07/09/18 19:04 07/10/18 00:03 07/10/18 06:24 Glucose (Fingerstick) 96 mg/dL (70-99) 107 mg/dL (70-99) 183 mg/dL (70-99) 97 mg/dL (70-99) Test 07/10/18 07:00 07/10/18 11:44 07/10/18 15:34 07/10/18 18:24 White Blood Count 5.3 x10^3/uL (4.0-11.0) Red Blood Count 3.39 x10^6/uL (3.50-5.40) Hemoglobin 8.9 g/dL (12.0-15.5) Hematocrit 27.8 % (36.0-47.0) Mean Corpuscular Volume 82 fL (79-100) Mean Corpuscular Hemoglobin 26 pg (25-35) Mean Corpuscular Hemoglobin Concent 32 g/dL (31-37) Red Cell Distribution Width 19.4 % (11.5-14.5) Platelet Count 384 x10^3/uL (140-400) Neutrophils (%) (Auto) 57 % (31-73) Lymphocytes (%) (Auto) 20 % (24-48) Monocytes (%) (Auto) 7 % (0-9) Eosinophils (%) (Auto) 14 % (0-3) Basophils (%) (Auto) 2 % (0-3) Neutrophils # (Auto) 3.0 x10^3uL (1.8-7.7) Lymphocytes # (Auto) 1.0 x10^3/uL (1.0-4.8) Monocytes # (Auto) 0.4 x10^3/uL (0.0-1.1) Eosinophils # (Auto) 0.7 x10^3/uL (0.0-0.7) Basophils # (Auto) 0.1 x10^3/uL (0.0-0.2) Sodium Level 139 mmol/L (136-145) Potassium Level 4.3 mmol/L (3.5-5.1) Chloride Level 106 mmol/L (98-107) Carbon Dioxide Level 26 mmol/L (21-32) Anion Gap 7 (6-14) Blood Urea Nitrogen 28 mg/dL (7-20) Creatinine 0.8 mg/dL (0.6-1.0) Estimated GFR (Cockcroft-Gault) 87.7 Glucose Level 90 mg/dL (70-99) Calcium Level 9.1 mg/dL (8.5-10.1) Magnesium Level 2.2 mg/dL (1.8-2.4) Stool Occult Blood Negative (NEG) Glucose (Fingerstick) 141 mg/dL (70-99) 121 mg/dL (70-99) Test 07/11/18 00:43 07/11/18 04:17 07/11/18 06:02 Glucose (Fingerstick) 128 mg/dL (70-99) 107 mg/dL (70-99) White Blood Count 5.8 x10^3/uL (4.0-11.0) Red Blood Count 3.58 x10^6/uL (3.50-5.40) Hemoglobin 9.5 g/dL (12.0-15.5) Hematocrit 29.6 % (36.0-47.0) Mean Corpuscular Volume 83 fL (79-100) Mean Corpuscular Hemoglobin 26 pg (25-35) Mean Corpuscular Hemoglobin Concent 32 g/dL (31-37) Red Cell Distribution Width 19.9 % (11.5-14.5) Platelet Count 457 x10^3/uL (140-400) Neutrophils (%) (Auto) 56 % (31-73) Lymphocytes (%) (Auto) 23 % (24-48) Monocytes (%) (Auto) 6 % (0-9) Eosinophils (%) (Auto) 12 % (0-3) Basophils (%) (Auto) 3 % (0-3) Neutrophils # (Auto) 3.2 x10^3uL (1.8-7.7) Lymphocytes # (Auto) 1.4 x10^3/uL (1.0-4.8) Monocytes # (Auto) 0.4 x10^3/uL (0.0-1.1) Eosinophils # (Auto) 0.7 x10^3/uL (0.0-0.7) Basophils # (Auto) 0.1 x10^3/uL (0.0-0.2) Sodium Level 137 mmol/L (136-145) Potassium Level 4.3 mmol/L (3.5-5.1) Chloride Level 104 mmol/L (98-107) Carbon Dioxide Level 23 mmol/L (21-32) Anion Gap 10 (6-14) Blood Urea Nitrogen 31 mg/dL (7-20) Creatinine 0.8 mg/dL (0.6-1.0) Estimated GFR (Cockcroft-Gault) 87.7 Glucose Level 104 mg/dL (70-99) Calcium Level 9.5 mg/dL (8.5-10.1) Magnesium Level 2.3 mg/dL (1.8-2.4) Laboratory Tests Test 07/10/18 11:44 07/10/18 15:34 07/10/18 18:24 07/11/18 00:43 Stool Occult Blood Negative (NEG) Glucose (Fingerstick) 141 mg/dL (70-99) 121 mg/dL (70-99) 128 mg/dL (70-99) Test 07/11/18 04:17 07/11/18 06:02 White Blood Count 5.8 x10^3/uL (4.0-11.0) Red Blood Count 3.58 x10^6/uL (3.50-5.40) Hemoglobin 9.5 g/dL (12.0-15.5) Hematocrit 29.6 % (36.0-47.0) Mean Corpuscular Volume 83 fL (79-100) Mean Corpuscular Hemoglobin 26 pg (25-35) Mean Corpuscular Hemoglobin Concent 32 g/dL (31-37) Red Cell Distribution Width 19.9 % (11.5-14.5) Platelet Count 457 x10^3/uL (140-400) Neutrophils (%) (Auto) 56 % (31-73) Lymphocytes (%) (Auto) 23 % (24-48) Monocytes (%) (Auto) 6 % (0-9) Eosinophils (%) (Auto) 12 % (0-3) Basophils (%) (Auto) 3 % (0-3) Neutrophils # (Auto) 3.2 x10^3uL (1.8-7.7) Lymphocytes # (Auto) 1.4 x10^3/uL (1.0-4.8) Monocytes # (Auto) 0.4 x10^3/uL (0.0-1.1) Eosinophils # (Auto) 0.7 x10^3/uL (0.0-0.7) Basophils # (Auto) 0.1 x10^3/uL (0.0-0.2) Sodium Level 137 mmol/L (136-145) Potassium Level 4.3 mmol/L (3.5-5.1) Chloride Level 104 mmol/L (98-107) Carbon Dioxide Level 23 mmol/L (21-32) Anion Gap 10 (6-14) Blood Urea Nitrogen 31 mg/dL (7-20) Creatinine 0.8 mg/dL (0.6-1.0) Estimated GFR (Cockcroft-Gault) 87.7 Glucose Level 104 mg/dL (70-99) Calcium Level 9.5 mg/dL (8.5-10.1) Magnesium Level 2.3 mg/dL (1.8-2.4) Glucose (Fingerstick) 107 mg/dL (70-99) Microbiology 06/30/18 Urine Culture - Final, Complete 06/30/18 Urine Culture Result 1 (ROYA) - Final, Complete 06/30/18 Antimicrobic Susceptibility - Final, Complete Medications Current Medications Piperacillin Sod/ Tazobactam Sod (Zosyn Per Pharmacy) 1 each PRN DAILY PRN MC SEE COMMENTS; Start 06/30/18 at 10:30; Stop 06/30/18 at 12:46; Status DC Piperacillin Sod/ Tazobactam Sod 3.375 gm/Sodium Chloride 50 ml @ 100 mls/hr ONCE ONCE IV Last administered on 06/30/18at 11:03; Start 06/30/18 at 10:30; Stop 06/30/18 at 10:59; Status DC Sodium Chloride 500 ml @ 500 mls/hr 1X ONCE IV ; Start 06/30/18 at 10:30; Stop 06/30/18 at 10:55; Status DC Fentanyl Citrate (Fentanyl 2ml Vial) 25 mcg 1X PRN PRN IV SEVERE PAIN Last administered on 06/30/18at 10:56; Start 06/30/18 at 10:45; Stop 07/01/18 at 11:04 ; Status DC Potassium Chloride/Sodium Chloride 1,000 ml @ 75 mls/hr 1X ONCE IV Last administered on 06/30/18at 11:03; Start 06/30/18 at 11:00; Stop 07/01/18 at 00:19 ; Status DC Magnesium Sulfate 50 ml @ 25 mls/hr 1X ONCE IV Last administered on 06/30/18at 20:41; Start 06/30/18 at 11:45; Stop 06/30/18 at 13:44; Status DC Sodium Chloride 1,000 ml @ 100 mls/hr Q10H IV ; Start 06/30/18 at 11:45; Stop 06/30/18 at 11:46; Status DC Piperacillin Sod/ Tazobactam Sod 3.375 gm/Sodium Chloride 50 ml @ 100 mls/hr Q6HRS IV ; Start 06/30/18 at 18:00; Stop 06/30/18 at 18:00; Status DC Magnesium Sulfate/ Dextrose 100 ml @ 25 mls/hr 1X ONCE IV Last administered on 06/30/18at 13:47; Start 06/30/18 at 13:00; Stop 06/30/18 at 16:59; Status DC Potassium Chloride/Sodium Chloride 1,000 ml @ 75 mls/hr [id number] IV ; Start at 12:30; Status UNV Potassium Chloride/Water 50 ml @ 50 mls/hr Q1H IV Last administered on at 18:16; Start 06/30/18 at 13:00; Stop 06/30/18 at 14:59; Status DC Hydromorphone HCl (Dilaudid) 2 mg PRN Q4HRS PRN IVP PAIN MILD TO MOD Last administered on 07/10/18at 10:09; Start 06/30/18 at 12:30 Hydromorphone HCl (Dilaudid) 4 mg PRN Q4HRS PRN IVP PAIN SEVERE Last administered on 07/11/18at 07:42; Start 06/30/18 at 12:30 Ondansetron HCl (Zofran) 4 mg PRN Q6HRS PRN IV NAUSEA/VOMITING Last administered on 07/10/18at 23:09; Start 06/30/18 at 12:30 Amlodipine Besylate (Norvasc) 5 mg DAILY PO Last administered on 07/01/18at 08: 35; Start 07/01/18 at 09:00; Stop 07/01/18 at 11:04; Status DC Trazodone HCl (Desyrel) 50 mg PRN QHS PRN PO INSOMNIA; Start 06/30/18 at 12:30 Sertraline HCl (Zoloft) 50 mg DAILY PO Last administered on 07/10/18at 10:08; Start 07/01/18 at 09:00 Zinc Oxide (Zinc Oxide 20% Topical) 1 sang BID TP Last administered on at 21:59; Start 06/30/18 at 21:00 Lorazepam (Ativan) 0.5 mg PRN Q6HRS PRN PO ANXIETY / AGITATION Last administered on 07/10/18 13:10; Start 06/30/18 at 12:30 Acetaminophen (Tylenol) 650 mg PRN Q6HRS PRN PO MILD PAIN / TEMP Last administered on 07/01/18 14:50; Start 06/30/18 at 12:30 Potassium Chloride 40 meq/ Dextrose/Sodium Chloride 1,020 ml @ 75 mls/hr [id number] IV Last administered on 07/01/18 10:43; Start 06/30/18 at 14:00; Stop 07/01/18 at 21:59; Status DC Lidocaine HCl (Xylocaine 2% Topical 30gm Tube) 1 sang BID TP Last administered on 07/10/18at 21:59; Start 06/30/18 at 21:00 Sodium Chloride 200 meq/Sodium Acetate 20 meq/ Potassium Chloride 120 meq/ Potassium Phosphate 6.8 mmol/Magnesium Sulfate 28 meq/ Calcium Gluconate 10 meq / Multivitamins 10 ml/Chromium/ Copper/Manganese/ Seleni/Zn 1 ml/ Total Parenteral Nutrition/Amino Acids/Dextrose/ Fat Emuls... 2,040 ml @ 85 mls/hr TPN CONT IV Last administered on 07/01/18 22:33; Start 07/01/18 at 22:00; Stop 07/02/18 at 21:59; Status DC Info (Tpn Per Pharmacy) 1 each PRN DAILY PRN MC SEE COMMENTS Last administered on 07/03/18at 12:25; Start 07/01/18 at 13:00; Stop 07/04/18 at 10:29; Status DC Diphenhydramine HCl (Benadryl) 25 mg PRN Q6HRS PRN PO ITCHING Last administered on 07/10/18 17:48; Start 07/02/18 at 05:00 Sodium Chloride 200 meq/Sodium Acetate 20 meq/ Potassium Chloride 120 meq/ Potassium Phosphate 6.8 mmol/Magnesium Sulfate 28 meq/ Calcium Gluconate 10 meq / Multivitamins 10 ml/Chromium/ Copper/Manganese/ Seleni/Zn 1 ml/ Total Parenteral Nutrition/Amino Acids/Dextrose/ Fat Emuls... 2,040 ml @ 85 mls/hr TPN CONT IV Last administered on 07/02/18at 22:04; Start 07/02/18 at 22:00; Stop 07/03/18 at 21:59; Status DC Nystatin (Nystop) 1 sang BID TP Last administered on 07/10/18at 21:59; Start at 11:00 Nystatin (Nystop) 1 sang BID TP ; Start 07/03/18 at 21:00; Stop 07/10/18 at 20:59 ; Status UNV Sodium Phosphate 15 mmol/Dextrose 255 ml @ 63.75 mls/ hr 1X ONCE IV Last administered on 07/03/18at 13:01; Start 07/03/18 at 13:00; Stop 07/03/18 at 16:59 ; Status DC Sodium Chloride 200 meq/Sodium Acetate 20 meq/ Sodium Phosphate 10 mmol/ Potassium Chloride 100 meq/ Potassium Phosphate 6.8 mmol/Magnesium Sulfate 28 meq/ Calcium Gluconate 10 meq/ Multivitamins 10 ml/Chromium/ Copper/Manganese/ Seleni/Zn 1 ml/ Total Parenteral Nutrition/Amino Acids/Dextro... 2,040 ml @ 85 mls/hr TPN CONT IV Last administered on 07/03/18at 23:23; Start 07/03/18 at 22: 00; Stop 07/04/18 at 21:59; Status DC Dextrose/Sodium Chloride 1,000 ml @ 80 mls/hr [id number] IV Last administered on 07/05/18at 00:05; Start 07/04/18 at 10:30; Stop 07/05/18 at 21:59; Status DC Sodium Polystyrene Sulfonate (Kayexalate) 30 gm 1X ONCE PO Last administered on 07/04/18at 11:45; Start 07/04/18 at 10:30; Stop 07/04/18 at 10:37; Status DC Furosemide (Lasix) 40 mg 1X ONCE IVP Last administered on 07/04/18at 11:43; Start 07/04/18 at 10:30; Stop 07/04/18 at 10:36; Status DC Magnesium Sulfate 50 ml @ 25 mls/hr 1X ONCE IV Last administered on 07/05/18at 11:45; Start 07/05/18 at 11:00; Stop 07/05/18 at 12:59; Status DC Info (Tpn Per Pharmacy) 1 each PRN DAILY PRN MC SEE COMMENTS Last administered on 07/10/18at 14:04; Start 07/05/18 at 10:30 Sodium Chloride 200 meq/Sodium Acetate 20 meq/ Sodium Phosphate 10 mmol/ Potassium Chloride 80 meq/ Potassium Phosphate 6.8 mmol/Magnesium Sulfate 28 meq / Calcium Gluconate 10 meq/ Multivitamins 10 ml/Chromium/ Copper/Manganese/ Seleni/Zn 1 ml/ Total Parenteral Nutrition/Amino Acids/Dextro... 1,920 ml @ 80 mls/hr TPN CONT IV Last administered on 07/05/18at 22:29; Start 07/05/18 at 22: 00; Stop 07/06/18 at 21:59; Status DC Amlodipine Besylate (Norvasc) 5 mg DAILY PO Last administered on 07/10/18at 10: 08; Start 07/06/18 at 12:00 Sodium Chloride 200 meq/Sodium Acetate 20 meq/ Sodium Phosphate 10 mmol/ Potassium Chloride 80 meq/ Potassium Phosphate 6.8 mmol/Magnesium Sulfate 28 meq / Calcium Gluconate 10 meq/ Multivitamins 10 ml/Chromium/ Copper/Manganese/ Seleni/Zn 1 ml/ Total Parenteral Nutrition/Amino Acids/Dextro... 1,920 ml @ 80 mls/hr TPN CONT IV Last administered on 07/06/18at 22:12; Start 07/06/18 at 22: 00; Stop 07/07/18 at 21:59; Status DC Sodium Chloride 200 meq/Sodium Acetate 20 meq/ Sodium Phosphate 10 mmol/ Potassium Chloride 80 meq/ Potassium Phosphate 6.8 mmol/Magnesium Sulfate 28 meq / Calcium Gluconate 10 meq/ Multivitamins 10 ml/Chromium/ Copper/Manganese/ Seleni/Zn 1 ml/ Total Parenteral Nutrition/Amino Acids/Dextro... 1,920 ml @ 80 mls/hr TPN CONT IV Last administered on 07/07/18at 22:31; Start 07/07/18 at 22: 00; Stop 07/08/18 at 21:59; Status DC Sodium Chloride 200 meq/Sodium Acetate 20 meq/ Sodium Phosphate 10 mmol/ Potassium Chloride 60 meq/ Potassium Phosphate 6.8 mmol/Magnesium Sulfate 28 meq / Calcium Gluconate 10 meq/ Multivitamins 10 ml/Chromium/ Copper/Manganese/ Seleni/Zn 1 ml/ Total Parenteral Nutrition/Amino Acids/Dextro... 1,920 ml @ 80 mls/hr TPN CONT IV Last administered on 07/08/18at 21:44; Start 07/08/18 at 22: 00; Stop 07/09/18 at 21:59; Status DC Furosemide (Lasix) 40 mg 1X ONCE IVP Last administered on 07/09/18at 11:26; Start 07/09/18 at 11:15; Stop 07/09/18 at 11:16; Status DC Sodium Chloride 1,000 ml @ 80 mls/hr [id number] IV Last administered on at 11:26; Start 07/09/18 at 11:15; Stop 07/09/18 at 21:59; Status DC Sodium Chloride 200 meq/Sodium Acetate 20 meq/ Sodium Phosphate 10 mmol/ Potassium Chloride 40 meq/ Potassium Phosphate 6.8 mmol/Magnesium Sulfate 24 meq / Calcium Gluconate 10 meq/ Multivitamins 10 ml/Chromium/ Copper/Manganese/ Seleni/Zn 1 ml/ Total Parenteral Nutrition/Amino Acids/Dextro... 1,920 ml @ 80 mls/hr TPN CONT IV Last administered on 07/09/18at 22:35; Start 07/09/18 at 22: 00; Stop 07/10/18 at 21:59; Status DC Sodium Chloride 200 meq/Sodium Acetate 20 meq/ Sodium Phosphate 10 mmol/ Potassium Chloride 40 meq/ Potassium Phosphate 6.8 mmol/Magnesium Sulfate 24 meq / Calcium Gluconate 10 meq/ Multivitamins 10 ml/Chromium/ Copper/Manganese/ Seleni/Zn 1 ml/ Total Parenteral Nutrition/Amino Acids/Dextro... 1,920 ml @ 80 mls/hr TPN CONT IV Last administered on 07/10/18at 22:00; Start 07/10/18 at 22: 00; Stop 07/11/18 at 21:59 Active Scripts Active Ambien (Zolpidem Tartrate) 5 Mg Tablet 5 Mg PO PRN QHS PRN 30 Days [Tpn Per Pharmacy] 1 EACH Each 1 Each MC PRN DAILY PRN TPN at 85cc/hour [Pantoprazole] 40 MG Tablet.dr 40 Mg PO DAILYAC Amlodipine Besylate 10 Mg Tablet 5 Mg PO DAILY Tylenol (Acetaminophen) 325 Mg Tablet 650 Mg PO PRN Q6HRS PRN 30 Days Sertraline Hcl 50 Mg Tablet 50 Mg PO DAILY 30 Days Lidocaine 35.44 Gm Oint...g. 1 Sang TP BID Reported Zofran Odt (Ondansetron) 4 Mg Tab.rapdis 1 Tab SL PRN Q8HRS PRN Zinc Oxide 56.7 Gm Oint...g. 56.7 Gm TP PRN BID Dilaudid (Hydromorphone Hcl) 2 Mg Tablet 1 Tab PO PRN QID PRN Lorazepam 0.5 Mg Tablet 0.5 Mg PO Q6HRS PRN Vitals/I & O Vital Sign - Last 24 Hours 07/10/18 07/10/18 07/10/18 07/10/18 10:08 10:09 10:39 15:00 Temp 98.1 98.1 Pulse 92 99 Resp 18 17 18 B/P (MAP) 133/82 154/87 (109) Pulse Ox 97 O2 Delivery Room Air Room Air Room Air 07/10/18 07/10/18 07/10/18 07/10/18 15:08 15:35 19:10 19:55 Temp 98.1 98.1 Pulse 91 Resp 18 19 22 20 B/P (MAP) 148/85 (106) O2 Delivery Room Air Room Air Room Air 07/10/18 07/10/18 07/10/18 07/11/18 20:00 23:12 23:44 03:18 Temp 98.1 97.7 98.1 97.7 Pulse 83 82 Resp 20 20 B/P (MAP) 152/89 (110) 174/86 (115) Pulse Ox 97 99 100 O2 Delivery Room Air Room Air Room Air Room Air 07/11/18 07/11/18 07/11/18 07/11/18 03:42 04:15 07:00 07:42 Temp 97.8 97.8 Pulse 88 Resp 18 B/P (MAP) 161/95 (117) Pulse Ox 100 100 98 100 O2 Delivery Room Air Room Air Room Air Room Air Intake and Output 07/10/18 07/10/18 07/11/18 15:01 23:01 07:01 Intake Total 800 ml 850 ml Output Total 3 ml 200 ml Balance 797 ml 650 ml Nutrition Consultation Dietary Evaluation: Recommendations by RD: PPN/TPN Comments: continue with gi soft diet and Home TPN Expected Outcomes/Goals: wt maintainance Malnutrition Findings: Body Fat Depletion (Non Severe: Mild Depletion Weight Status: Appropriate BENITA LUTZ MD Jul 11, 2018 09:51
[2018-07-11] MEDS ORDERED: ZINC56.7 TP (09:56)
--- NOTE | 2018-07-11 09:58 | DISCH ---
DISCHARGE WITH HOME HEALTH DISCHARGE INFORMATION: Discharge Date: Jul 12, 2018 Final Diagnosis: Problems enterocutaneous fistula Medical Problems: (1) Low magnesium level Status: Acute (2) Low serum potassium Status: Acute Condition on Discharge: Stable CODE STATUS: Code Status: Full HOME HEALTH: Face to Face: I certify this patient is under my care and that I, or a nurse practitioner or physician's store assistant working with me, had a face to face encounter that meets the physician face to face encounter requirements with this patient on []. POST DISCHARGE ORDERS: Activity Instructions for Disc: Activity as tolerated Weight Bearing Status after Di: As tolerated Bathing Instructions: Shower-keep dressing dry, No Tub Bath until see DIET AFTER DISCHARGE: TPN new formula at 85 cc/hour Wound/Incision Care: Reinforce dressing PRN, Routine catheter care CHECKS AFTER DISCHARGE: Checks after discharge: Check blood press - daily, Check your Temp as needed, Weigh Yourself Daily FOLLOW-UP: Follow up with: dr. lutz next week Follow Up With: cbc cmp magnesium and phosphorus every wednesday and fax to dr. lutz TREATMENT/EQUIPMENT ORDERS: Adaptive Equipment Issued: None CERTIFICATION STATEMENT: Certification Statement: Certification Statement: Based on the above finding, I certify that this patient is confined to the home and needs intermittent shelter care, physical therapy and/or speech therapy, or continues to need occupational therapy.~ This patient is under my care, and I have initiated the establishment of the plan of care.~ This patient will be followed by myself or a community physician who will periodically review the plan of care. Home Meds Active Scripts Zinc Oxide (ZINC OXIDE) 56.7 Gm Oint...g., 1 WANDY TP BID for abdominal skin excoriation, #30 GR Prov:BENITA LUTZ MD 07/11/18 Zolpidem Tartrate (AMBIEN) 5 Mg Tablet, 5 MG PO PRN QHS PRN for INSOMNIA for 30 Days, TAB Prov:BENITA LUTZ MD 06/23/18 [Tpn Per Pharmacy] 1 EACH EACH No Conflict Check, 1 EACH MC PRN DAILY PRN for SEE COMMENTS TPN at 85cc/hour Prov:BENITA LUTZ MD 06/23/18 [Pantoprazole] [address] Stuart Conflict Check, 40 MG PO DAILYAC for GERD, #30 Prov:BENITA LUTZ MD 06/23/18 Amlodipine Besylate (AMLODIPINE BESYLATE) 10 Mg Tablet, 5 MG PO DAILY for HTN, # 30 TAB Prov:BENITA LUTZ MD 06/23/18 Acetaminophen (TYLENOL) 325 Mg Tablet, 650 MG PO PRN Q6HRS PRN for MILD PAIN / TEMP for 30 Days, TAB Prov:BENITA LUTZ MD 04/22/18 Sertraline Hcl (SERTRALINE HCL) 50 Mg Tablet, 50 MG PO DAILY for 30 Days, #30 TAB Prov:BENITA LUTZ MD 01/05/17 Lidocaine (LIDOCAINE) 35.44 Gm Oint...g., 1 WANDY TP BID, #30 Prov:BENITA LUTZ MD 12/18/15 Reported Medications Ondansetron (ZOFRAN ODT) 4 Mg Tab.rapdis, 1 TAB SL PRN Q8HRS PRN for NAUSEA/ VOMITING 01/09/17 Zinc Oxide (ZINC OXIDE) 56.7 Gm Oint...g., 56.7 GM TP PRN BID 01/09/17 Hydromorphone Hcl (DILAUDID) 2 Mg Tablet, 1 TAB PO PRN QID PRN for PAIN 01/09/17 Lorazepam (LORAZEPAM) 0.5 Mg Tablet, 0.5 MG PO Q6HRS PRN for ANXIETY, TAB 08/31/16 BENITA LUTZ MD Jul 11, 2018 09:58
--- NOTE | 2018-07-11 10:04 | PDOC ---
Provider Note Provider Note discharge summary dictated # [id number] BENITA LUTZ MD Jul 11, 2018 10:04
[2018-07-11] MEDS: SERTRALINE 50 MG TABLET. PO SCH (10:20)
[2018-07-11] MEDS: amLODIPine BESYLATE 5 MG TABLET PO SCH (10:21)
[2018-07-11] MEDS: ZINC OXIDE 20% TOPICAL OINTMENT 28GM TUBE. TP SCH ×2 (10:21→20:46)
[2018-07-11] MEDS: NYSTATIN TOPICAL POWDER 15GM BOTTLE. TP SCH ×2 (10:21→20:45)
--- NOTE | 2018-07-11 10:51 | DS ---
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 FINAL DIAGNOSES: 1. Severe hypokalemia. 2. Severe hypomagnesemia. 3. Mild hyponatremia. 4. Anemia of chronic disease. 5. Enterocutaneous fistula. 6. Enterovesical fistula. 7. Severe protein-calorie malnutrition. 8. Hypertension. 9. Chronic abdominal pain secondary to previous adhesions. 10. Hyperkalemia. HOSPITAL COURSE: The patient is a 63-year-old -[place] female with a history of enterocutaneous fistula and an enterovesical fistula, maintained on home total parenteral nutrition. I received a phone call that her hemoglobin was 5.7 as an outpatient and she was directed to [facility] Emergency Room with a hemoglobin of 7.7; however, her potassium was quite low at 2.5, magnesium was also quite low at 1.2 prompting admission to the hospital to treat her severe hypokalemia and severe hypomagnesemia related to her enterocutaneous fistula as she noted increased output through her fistula. She denied any increased abdominal pain. A CAT scan of the abdomen and pelvis was unremarkable. She has chronic abdominal pain due to previous adhesions, that she has had 5 surgical procedures to correct her enterocutaneous fistula, all of which have failed. She received potassium and magnesium supplementation. Her TPN was adjusted and her potassium went too high and TPN was discontinued, then it was resumed on her potassium, magnesium was normal. Blood pressure was high and her amlodipine was resumed. She will receive an extra dose today. She had a fever when I was away, out of town, 101.7 degrees one day at 3:00 in the afternoon on 07/01/2018 and it did not recur. Urine culture was positive as it always will be due to her enterovesical fistula, but since she did not spike any more fevers and did not have a leukocytosis, It was not treated as her urine cultures will always be positive due to the enterovesical fistula. She did have pyuria also. She has not spiked a fever since. She feels much better and it is anticipated that she will be dismissed to home with home health on 07/12/2018. It takes one day for the TPN to be made before she is dismissed. So I spoke with the pharmacist at [facility] who will speak with the outpatient pharmacy, so she can get the same TPN formula that she has now. So she therefore will be dismissed on TPN continuously at 80 mL an hour, Dilaudid 2 mg q.i.d. p.r.n., amlodipine 5 mg every day, lidocaine 5% followed by zinc sulfate 20% to her abdominal wall excoriated area from her enterocutaneous fistula applied b.i.d., lorazepam 0.5 mg every 6 hours p.r.n. for anxiety, sertraline 50 mg every day, trazodone 50 mg at bedtime p.r.n., Tylenol 325 mg 1-2 every 4 hours p.r.n., Zofran 4 mg every 6 hours p.r.n. She will have weekly CBC, CMP, magnesium and phosphorus every Wednesday, results faxed to Dr. Cisneros. She will make an appointment to see Dr. Cisneros in the office next week. She will be dismissed with home health. Today, her potassium, magnesium was normal. She also developed anemia when she was here in her stool was heme negative x 3, seen in consultation by Dr. Ovalle for GI and she received 2 units of packed red blood cells and her hemoglobin is stable. She had a little bit of bleeding from her enterocutaneous fistula at times, but that has since stopped. BENITA CISNEROS MD DR: [id number]/jd JOB#: [id number] / [id number]
[2018-07-11 11:00] VITALS: BP 155/89
[2018-07-11] MEDS: TPN PER PHARMACY MC PRN (13:09)
--- NOTE | 2018-07-11 13:09 | NUR ---
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 Height: 5 feet, 3 inches Weight: 48.802396 kg Current diet: GI SOFT LABS: Sodium: 137 Potassium: 4.3 Chloride: 104 Calcium: 9.5 Corrected Calcium: 10.38 Magnesium: 2.3 CO2: 23 SCr: 0.8 Glucose: 104 Albumin: 2.9 AST: 13 (06/30) ALT: 14 (06/30) TPN FORMULA: TPN TYPE: Central Continuous AMINO ACIDS: 90 gm DEXTROSE: 275 gm LIPIDS: 35 gm SODIUM CHLORIDE: 200 mEq SODIUM ACETATE: 20 mEq SODIUM PHOSPHATE: 10 mmol POTASSIUM CHLORIDE: 40 mEq POTASSIUM ACETATE: - mEq POTASSIUM PHOSPHATE: 6.8 mmol MAGNESIUM: 24 mEq CALCIUM: 10 mEq INSULIN: - units MULTIPLE VITAMIN: 10 ml TRACE ELEMENTS: MTE5 1ML ml(s) TPN PLAN: cont same tpn, anticipate dc home wednesday. R: Continue TPN as written above. Will monitor electrolytes, glucose, and tolerance to TPN. DIONISIO LOMBARDO [facility], 07/11/18 3653
--- NOTE | 2018-07-11 13:49 | PDOC ---
Subjective: Subjective: Doing better, says going home tomorrow. Waiting to shower. Eating some, had a loose stool yesterday. Objective: Vital Signs: Vital Signs Date Time Temp Pulse Resp B/P (MAP) Pulse Ox O2 Delivery O2 Flow Rate FiO2 07/11/18 12:17 100 Room Air 07/11/18 11:00 98.2 93 16 155/89 (111) 98.2 Labs: Laboratory Tests Test 07/10/18 15:34 07/10/18 18:24 07/11/18 00:43 07/11/18 06:02 Glucose (Fingerstick) 141 mg/dL (70-99) 121 mg/dL (70-99) 128 mg/dL (70-99) 107 mg/dL (70-99) Test 07/11/18 11:52 Glucose (Fingerstick) 119 mg/dL (70-99) PE: GEN: NAD, sitting up in bed LUNGS: room air ABD: towels over abdomen EXTREM: pedal edema NEURO/PSYCH: A & O �3 A/P: Chronic anemia - no obvious bleeding, was transfused, Hgb now stable, fecal occult neg x 3 Chronic fistulae, 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 Plans for DC tomorrow. MIESHA RICO Jul 11, 2018 13:49
[2018-07-11] MEDS: LORazepam 0.5 MG TABLET PO PRN ×2 (15:39→20:34)
[2018-07-11] MEDS ORDERED: NITROGLYCERIN SUBLINGUAL 0.4 MG BOTTLE OF 25. SL PRN (16:30)
[2018-07-11] MEDS ORDERED: ALTEPLASE 1MG SYRINGE. INT CAT ONE ×2 (17:15)
[2018-07-11 19:15] VITALS: BP 186/95
[2018-07-11] MEDS ORDERED: ATORVASTATIN CALCIUM 20 MG TABLET PO SCH (21:00)
[2018-07-11] MEDS ORDERED: LISINOPRIL 20 MG TABLET PO SCH (21:00)
[2018-07-11] MEDS ORDERED: DEXTROSE 70% IV SCH ×12 (22:00)
[2018-07-11] MEDS ORDERED: [UNRECOGNIZED DRUG - OTHER] IV SCH ×12 (22:00)
[2018-07-11] MEDS ORDERED: TOTAL PARENTERAL NUTRITION IV SCH ×12 (22:00)
[2018-07-11] MEDS ORDERED: AMINO ACID IV SCH ×12 (22:00)
[2018-07-11 23:37] VITALS: BP 163/77
[2018-07-12] MEDS: HYDROmorphone 2 MG/ML VIAL IVP PRN ×5 (00:43→16:54)
[2018-07-12] MEDS: LORazepam 0.5 MG TABLET PO PRN ×2 (02:39→08:55)
[2018-07-12 03:24] VITALS: BP 185/94
[2018-07-12 07:00] VITALS: BP 177/79
[2018-07-12] MEDS ORDERED: ASPIRIN ENTERIC COATED 81 MG TABLET.DR. PO SCH (08:00)
[2018-07-12] MEDS ORDERED: POTASSIUM CHLORIDE 20 MEQ TABLET.ER. PO SCH (08:00)
[2018-07-12] MEDS: amLODIPine BESYLATE 5 MG TABLET PO SCH (08:55)
[2018-07-12] MEDS: SERTRALINE 50 MG TABLET. PO SCH (08:56)
[2018-07-12] MEDS: NYSTATIN TOPICAL POWDER 15GM BOTTLE. TP SCH (08:57)
[2018-07-12] MEDS: LIDOCAINE 2% TOPICAL JELLY 30GM TUBE. TP SCH (08:57)
[2018-07-12] MEDS: ZINC OXIDE 20% TOPICAL OINTMENT 28GM TUBE. TP SCH (08:57)
[2018-07-12] MEDS ORDERED: SPIRONOLACTONE 25 MG TABLET PO SCH (09:00)
[2018-07-12] MEDS ORDERED: hydroCHLOROthiazide 25 MG TABLET PO SCH (10:00)
--- NOTE | 2018-07-12 10:06 | PDOC ---
PROGRESS NOTES Subjective Subjective feels okay. bp is high and will start hctz. lab not done yet and I ordered it stat. afebrile. Objective Objective Vital Signs Date Time Temp Pulse Resp B/P (MAP) Pulse Ox O2 Delivery O2 Flow Rate FiO2 07/12/18 08:56 98 Room Air 07/12/18 08:55 86 177/79 07/12/18 07:00 97.9 16 97.9 Intake and Output 07/12/18 07:01 Intake Total 1240 ml Balance 1240 ml Intake Oral 1240 ml # Voids 7 Physical Exam Abdomen: Soft, Other (EC fistula) Heart: Regular rate, Normal S1, Normal S2 Extremities: Other (2 plus edmea left foot) General: Alert HEENT: Atraumatic Lungs: Clear to auscultation Neuro: Normal speech Psych/Mental Status: Mental status NL Skin: No rashes Assessment Assessment ProblemsSevere hypokalemia. resolved 2. hypomagnesemia. resolved 3. Mild hyponatremia. resolved 4. Anemia of chronic disease. hgb lower 5. Enterocutaneous fistula. high output last night 6. Enterovesical fistula. 7. Severe protein calorie malnutrition. 8. Hypertension. bp high 9. Chronic abdominal pain secondary to adhesions hyperkalemia resolved leg edema better E. coli in urine but has enterovesical fistula fever once 07/01 without recurrence. wbc normal Medical Problems: (1) Low magnesium level Status: Acute (2) Low serum potassium Status: Acute Plan Plan of Care start hctz and continue amlodipine dismiss today if labs are okay continue TPN Comment Review of Relevant I have reviewed the following items lucila (where applicable) has been applied. Labs Laboratory Tests Test 07/10/18 11:44 07/10/18 15:34 07/10/18 18:24 07/11/18 00:43 Stool Occult Blood Negative (NEG) Glucose (Fingerstick) 141 mg/dL (70-99) 121 mg/dL (70-99) 128 mg/dL (70-99) Test 07/11/18 04:17 07/11/18 06:02 07/11/18 11:52 07/11/18 19:07 White Blood Count 5.8 x10^3/uL (4.0-11.0) Red Blood Count 3.58 x10^6/uL (3.50-5.40) Hemoglobin 9.5 g/dL (12.0-15.5) Hematocrit 29.6 % (36.0-47.0) Mean Corpuscular Volume 83 fL (79-100) Mean Corpuscular Hemoglobin 26 pg (25-35) Mean Corpuscular Hemoglobin Concent 32 g/dL (31-37) Red Cell Distribution Width 19.9 % (11.5-14.5) Platelet Count 457 x10^3/uL (140-400) Neutrophils (%) (Auto) 56 % (31-73) Lymphocytes (%) (Auto) 23 % (24-48) Monocytes (%) (Auto) 6 % (0-9) Eosinophils (%) (Auto) 12 % (0-3) Basophils (%) (Auto) 3 % (0-3) Neutrophils # (Auto) 3.2 x10^3uL (1.8-7.7) Lymphocytes # (Auto) 1.4 x10^3/uL (1.0-4.8) Monocytes # (Auto) 0.4 x10^3/uL (0.0-1.1) Eosinophils # (Auto) 0.7 x10^3/uL (0.0-0.7) Basophils # (Auto) 0.1 x10^3/uL (0.0-0.2) Sodium Level 137 mmol/L (136-145) Potassium Level 4.3 mmol/L (3.5-5.1) Chloride Level 104 mmol/L (98-107) Carbon Dioxide Level 23 mmol/L (21-32) Anion Gap 10 (6-14) Blood Urea Nitrogen 31 mg/dL (7-20) Creatinine 0.8 mg/dL (0.6-1.0) Estimated GFR (Cockcroft-Gault) 87.7 Glucose Level 104 mg/dL (70-99) Calcium Level 9.5 mg/dL (8.5-10.1) Magnesium Level 2.3 mg/dL (1.8-2.4) Glucose (Fingerstick) 107 mg/dL (70-99) 119 mg/dL (70-99) 138 mg/dL (70-99) Test 07/12/18 00:17 07/12/18 06:30 Glucose (Fingerstick) 109 mg/dL (70-99) 105 mg/dL (70-99) Laboratory Tests Test 07/11/18 11:52 07/11/18 19:07 07/12/18 00:17 07/12/18 06:30 Glucose (Fingerstick) 119 mg/dL (70-99) 138 mg/dL (70-99) 109 mg/dL (70-99) 105 mg/dL (70-99) Microbiology 06/30/18 Urine Culture - Final, Complete 06/30/18 Urine Culture Result 1 (ROYA) - Final, Complete 06/30/18 Antimicrobic Susceptibility - Final, Complete Medications Current Medications Piperacillin Sod/ Tazobactam Sod (Zosyn Per Pharmacy) 1 each PRN DAILY PRN MC SEE COMMENTS; Start 06/30/18 at 10:30; Stop 06/30/18 at 12:46; Status DC Piperacillin Sod/ Tazobactam Sod 3.375 gm/Sodium Chloride 50 ml @ 100 mls/hr ONCE ONCE IV Last administered on 06/30/18at 11:03; Start 06/30/18 at 10:30; Stop 06/30/18 at 10:59; Status DC Sodium Chloride 500 ml @ 500 mls/hr 1X ONCE IV ; Start 06/30/18 at 10:30; Stop 06/30/18 at 10:55; Status DC Fentanyl Citrate (Fentanyl 2ml Vial) 25 mcg 1X PRN PRN IV SEVERE PAIN Last administered on 06/30/18at 10:56; Start 06/30/18 at 10:45; Stop 07/01/18 at 11:04 ; Status DC Potassium Chloride/Sodium Chloride 1,000 ml @ 75 mls/hr 1X ONCE IV Last administered on 06/30/18at 11:03; Start 06/30/18 at 11:00; Stop 07/01/18 at 00:19 ; Status DC Magnesium Sulfate 50 ml @ 25 mls/hr 1X ONCE IV Last administered on 06/30/18at 20:41; Start 06/30/18 at 11:45; Stop 06/30/18 at 13:44; Status DC Sodium Chloride 1,000 ml @ 100 mls/hr Q10H IV ; Start 06/30/18 at 11:45; Stop 06/30/18 at 11:46; Status DC Piperacillin Sod/ Tazobactam Sod 3.375 gm/Sodium Chloride 50 ml @ 100 mls/hr Q6HRS IV ; Start 06/30/18 at 18:00; Stop 06/30/18 at 18:00; Status DC Magnesium Sulfate/ Dextrose 100 ml @ 25 mls/hr 1X ONCE IV Last administered on 06/30/18at 13:47; Start 06/30/18 at 13:00; Stop 06/30/18 at 16:59; Status DC Potassium Chloride/Sodium Chloride 1,000 ml @ 75 mls/hr [id number] IV ; Start at 12:30; Status UNV Potassium Chloride/Water 50 ml @ 50 mls/hr Q1H IV Last administered on at 18:16; Start 06/30/18 at 13:00; Stop 06/30/18 at 14:59; Status DC Hydromorphone HCl (Dilaudid) 2 mg PRN Q4HRS PRN IVP PAIN MILD TO MOD Last administered on 07/10/18 10:09; Start 06/30/18 at 12:30 Hydromorphone HCl (Dilaudid) 4 mg PRN Q4HRS PRN IVP PAIN SEVERE Last administered on 07/12/18 08:56; Start 06/30/18 at 12:30 Ondansetron HCl (Zofran) 4 mg PRN Q6HRS PRN IV NAUSEA/VOMITING Last administered on 07/10/18 23:09; Start 06/30/18 at 12:30 Amlodipine Besylate (Norvasc) 5 mg DAILY PO Last administered on 07/01/18at 08: 35; Start 07/01/18 at 09:00; Stop 07/01/18 at 11:04; Status DC Trazodone HCl (Desyrel) 50 mg PRN QHS PRN PO INSOMNIA; Start 06/30/18 at 12:30 Sertraline HCl (Zoloft) 50 mg DAILY PO Last administered on 07/12/18 08:56; Start 07/01/18 at 09:00 Zinc Oxide (Zinc Oxide 20% Topical) 1 sang BID TP Last administered on 08:57; Start 06/30/18 at 21:00 Lorazepam (Ativan) 0.5 mg PRN Q6HRS PRN PO ANXIETY / AGITATION Last administered on 07/12/18 08:55; Start 06/30/18 at 12:30 Acetaminophen (Tylenol) 650 mg PRN Q6HRS PRN PO MILD PAIN / TEMP Last administered on 07/01/18 14:50; Start 06/30/18 at 12:30 Potassium Chloride 40 meq/ Dextrose/Sodium Chloride 1,020 ml @ 75 mls/hr [id number] IV Last administered on 07/01/18 10:43; Start 06/30/18 at 14:00; Stop 07/01/18 at 21:59; Status DC Lidocaine HCl (Xylocaine 2% Topical 30gm Tube) 1 sang BID TP Last administered on 07/12/18 08:57; Start 06/30/18 at 21:00 Sodium Chloride 200 meq/Sodium Acetate 20 meq/ Potassium Chloride 120 meq/ Potassium Phosphate 6.8 mmol/Magnesium Sulfate 28 meq/ Calcium Gluconate 10 meq / Multivitamins 10 ml/Chromium/ Copper/Manganese/ Seleni/Zn 1 ml/ Total Parenteral Nutrition/Amino Acids/Dextrose/ Fat Emuls... 2,040 ml @ 85 mls/hr TPN CONT IV Last administered on 07/01/18at 22:33; Start 07/01/18 at 22:00; Stop 07/02/18 at 21:59; Status DC Info (Tpn Per Pharmacy) 1 each PRN DAILY PRN MC SEE COMMENTS Last administered on 07/03/18at 12:25; Start 07/01/18 at 13:00; Stop 07/04/18 at 10:29; Status DC Diphenhydramine HCl (Benadryl) 25 mg PRN Q6HRS PRN PO ITCHING Last administered on 07/10/18at 17:48; Start 07/02/18 at 05:00 Sodium Chloride 200 meq/Sodium Acetate 20 meq/ Potassium Chloride 120 meq/ Potassium Phosphate 6.8 mmol/Magnesium Sulfate 28 meq/ Calcium Gluconate 10 meq / Multivitamins 10 ml/Chromium/ Copper/Manganese/ Seleni/Zn 1 ml/ Total Parenteral Nutrition/Amino Acids/Dextrose/ Fat Emuls... 2,040 ml @ 85 mls/hr TPN CONT IV Last administered on 07/02/18at 22:04; Start 07/02/18 at 22:00; Stop 07/03/18 at 21:59; Status DC Nystatin (Nystop) 1 sang BID TP Last administered on 07/12/18at 08:57; Start at 11:00 Nystatin (Nystop) 1 sang BID TP ; Start 07/03/18 at 21:00; Stop 07/10/18 at 20:59 ; Status UNV Sodium Phosphate 15 mmol/Dextrose 255 ml @ 63.75 mls/ hr 1X ONCE IV Last administered on 07/03/18at 13:01; Start 07/03/18 at 13:00; Stop 07/03/18 at 16:59 ; Status DC Sodium Chloride 200 meq/Sodium Acetate 20 meq/ Sodium Phosphate 10 mmol/ Potassium Chloride 100 meq/ Potassium Phosphate 6.8 mmol/Magnesium Sulfate 28 meq/ Calcium Gluconate 10 meq/ Multivitamins 10 ml/Chromium/ Copper/Manganese/ Seleni/Zn 1 ml/ Total Parenteral Nutrition/Amino Acids/Dextro... 2,040 ml @ 85 mls/hr TPN CONT IV Last administered on 07/03/18at 23:23; Start 07/03/18 at 22: 00; Stop 07/04/18 at 21:59; Status DC Dextrose/Sodium Chloride 1,000 ml @ 80 mls/hr [id number] IV Last administered on 07/05/18at 00:05; Start 07/04/18 at 10:30; Stop 07/05/18 at 21:59; Status DC Sodium Polystyrene Sulfonate (Kayexalate) 30 gm 1X ONCE PO Last administered on 07/04/18at 11:45; Start 07/04/18 at 10:30; Stop 07/04/18 at 10:37; Status DC Furosemide (Lasix) 40 mg 1X ONCE IVP Last administered on 07/04/18at 11:43; Start 07/04/18 at 10:30; Stop 07/04/18 at 10:36; Status DC Magnesium Sulfate 50 ml @ 25 mls/hr 1X ONCE IV Last administered on 07/05/18at 11:45; Start 07/05/18 at 11:00; Stop 07/05/18 at 12:59; Status DC Info (Tpn Per Pharmacy) 1 each PRN DAILY PRN MC SEE COMMENTS Last administered on 07/11/18at 13:09; Start 07/05/18 at 10:30 Sodium Chloride 200 meq/Sodium Acetate 20 meq/ Sodium Phosphate 10 mmol/ Potassium Chloride 80 meq/ Potassium Phosphate 6.8 mmol/Magnesium Sulfate 28 meq / Calcium Gluconate 10 meq/ Multivitamins 10 ml/Chromium/ Copper/Manganese/ Seleni/Zn 1 ml/ Total Parenteral Nutrition/Amino Acids/Dextro... 1,920 ml @ 80 mls/hr TPN CONT IV Last administered on 07/05/18at 22:29; Start 07/05/18 at 22: 00; Stop 07/06/18 at 21:59; Status DC Amlodipine Besylate (Norvasc) 5 mg DAILY PO Last administered on 07/12/18at 08: 55; Start 07/06/18 at 12:00 Sodium Chloride 200 meq/Sodium Acetate 20 meq/ Sodium Phosphate 10 mmol/ Potassium Chloride 80 meq/ Potassium Phosphate 6.8 mmol/Magnesium Sulfate 28 meq / Calcium Gluconate 10 meq/ Multivitamins 10 ml/Chromium/ Copper/Manganese/ Seleni/Zn 1 ml/ Total Parenteral Nutrition/Amino Acids/Dextro... 1,920 ml @ 80 mls/hr TPN CONT IV Last administered on 07/06/18at 22:12; Start 07/06/18 at 22: 00; Stop 07/07/18 at 21:59; Status DC Sodium Chloride 200 meq/Sodium Acetate 20 meq/ Sodium Phosphate 10 mmol/ Potassium Chloride 80 meq/ Potassium Phosphate 6.8 mmol/Magnesium Sulfate 28 meq / Calcium Gluconate 10 meq/ Multivitamins 10 ml/Chromium/ Copper/Manganese/ Seleni/Zn 1 ml/ Total Parenteral Nutrition/Amino Acids/Dextro... 1,920 ml @ 80 mls/hr TPN CONT IV Last administered on 07/07/18at 22:31; Start 07/07/18 at 22: 00; Stop 07/08/18 at 21:59; Status DC Sodium Chloride 200 meq/Sodium Acetate 20 meq/ Sodium Phosphate 10 mmol/ Potassium Chloride 60 meq/ Potassium Phosphate 6.8 mmol/Magnesium Sulfate 28 meq / Calcium Gluconate 10 meq/ Multivitamins 10 ml/Chromium/ Copper/Manganese/ Seleni/Zn 1 ml/ Total Parenteral Nutrition/Amino Acids/Dextro... 1,920 ml @ 80 mls/hr TPN CONT IV Last administered on 07/08/18at 21:44; Start 07/08/18 at 22: 00; Stop 07/09/18 at 21:59; Status DC Furosemide (Lasix) 40 mg 1X ONCE IVP Last administered on 07/09/18at 11:26; Start 07/09/18 at 11:15; Stop 07/09/18 at 11:16; Status DC Sodium Chloride 1,000 ml @ 80 mls/hr [id number] IV Last administered on at 11:26; Start 07/09/18 at 11:15; Stop 07/09/18 at 21:59; Status DC Sodium Chloride 200 meq/Sodium Acetate 20 meq/ Sodium Phosphate 10 mmol/ Potassium Chloride 40 meq/ Potassium Phosphate 6.8 mmol/Magnesium Sulfate 24 meq / Calcium Gluconate 10 meq/ Multivitamins 10 ml/Chromium/ Copper/Manganese/ Seleni/Zn 1 ml/ Total Parenteral Nutrition/Amino Acids/Dextro... 1,920 ml @ 80 mls/hr TPN CONT IV Last administered on 07/09/18at 22:35; Start 07/09/18 at 22: 00; Stop 07/10/18 at 21:59; Status DC Sodium Chloride 200 meq/Sodium Acetate 20 meq/ Sodium Phosphate 10 mmol/ Potassium Chloride 40 meq/ Potassium Phosphate 6.8 mmol/Magnesium Sulfate 24 meq / Calcium Gluconate 10 meq/ Multivitamins 10 ml/Chromium/ Copper/Manganese/ Seleni/Zn 1 ml/ Total Parenteral Nutrition/Amino Acids/Dextro... 1,920 ml @ 80 mls/hr TPN CONT IV Last administered on 07/10/18at 22:00; Start 07/10/18 at 22: 00; Stop 07/11/18 at 21:59; Status DC Sodium Chloride 200 meq/Sodium Acetate 20 meq/ Sodium Phosphate 10 mmol/ Potassium Chloride 40 meq/ Potassium Phosphate 6.8 mmol/Magnesium Sulfate 24 meq / Calcium Gluconate 10 meq/ Multivitamins 10 ml/Chromium/ Copper/Manganese/ Seleni/Zn 1 ml/ Total Parenteral Nutrition/Amino Acids/Dextro... 1,920 ml @ 80 mls/hr TPN CONT IV Last administered on 07/11/18at 23:38; Start 07/11/18 at 22: 00; Stop 07/12/18 at 21:59 Aspirin (Ecotrin) 81 mg DAILYWBKFT PO ; Start 07/12/18 at 08:00; Status Cancel Atorvastatin Calcium (Lipitor) 20 mg QHS PO ; Start 07/11/18 at 21:00; Status Cancel Lisinopril (Prinivil) 20 mg BID PO ; Start 07/11/18 at 21:00; Status Cancel Nifedipine (Procardia Xl) 60 mg DAILY PO ; Start 07/12/18 at 09:00; Status Cancel Nitroglycerin (Nitrostat) 0.4 mg PRN Q5MIN PRN SL CHEST PAIN; Start 07/11/18 at 16:30; Status Cancel Potassium Chloride (Klor-Con) 20 meq DAILYWBKFT PO ; Start 07/12/18 at 08:00; Status Cancel Spironolactone (Aldactone) 25 mg DAILY PO ; Start 07/12/18 at 09:00; Status Cancel Alteplase, Recombinant (Cathflo For Central Catheter Clearance) 1 mg 1X ONCE INT CAT Last administered on 07/11/18at 20:45; Start 07/11/18 at 17:15; Stop at 17:16; Status DC Alteplase, Recombinant (Cathflo For Central Catheter Clearance) 1 mg 1X ONCE INT CAT Last administered on 07/11/18at 20:45; Start 07/11/18 at 17:15; Stop at 17:16; Status DC Hydrochlorothiazide (Hydrodiuril) 25 mg DAILY PO ; Start 07/12/18 at 10:00 Active Scripts Active Zinc Oxide 56.7 Gm Oint...g. 1 Sang TP BID Ambien (Zolpidem Tartrate) 5 Mg Tablet 5 Mg PO PRN QHS PRN 30 Days [Tpn Per Pharmacy] 1 EACH Each 1 Each MC PRN DAILY PRN TPN at 85cc/hour Amlodipine Besylate 10 Mg Tablet 5 Mg PO DAILY Tylenol (Acetaminophen) 325 Mg Tablet 650 Mg PO PRN Q6HRS PRN 30 Days Sertraline Hcl 50 Mg Tablet 50 Mg PO DAILY 30 Days Lidocaine 35.44 Gm Oint...g. 1 Sang TP BID Reported Zofran Odt (Ondansetron) 4 Mg Tab.rapdis 1 Tab SL PRN Q8HRS PRN Zinc Oxide 56.7 Gm Oint...g. 56.7 Gm TP PRN BID Dilaudid (Hydromorphone Hcl) 2 Mg Tablet 1 Tab PO PRN QID PRN Lorazepam 0.5 Mg Tablet 0.5 Mg PO Q6HRS PRN Vitals/I & O Vital Sign - Last 24 Hours 07/11/18 07/11/18 07/11/18 07/11/18 10:21 11:00 11:43 15:31 Temp 98.2 98.2 Pulse 88 93 Resp 16 B/P (MAP) 161/95 155/89 (111) Pulse Ox 98 100 100 O2 Delivery Room Air Room Air Room Air 07/11/18 07/11/18 07/11/18 07/11/18 16:01 19:15 20:00 20:36 Temp 98.0 98.0 Pulse 102 Resp 16 B/P (MAP) 186/95 (125) Pulse Ox 100 100 O2 Delivery Room Air Room Air Room Air 07/11/18 07/12/18 07/12/18 07/12/18 23:37 00:43 03:24 04:40 Temp 97.7 97.4 97.7 97.4 Pulse 91 90 Resp 16 16 B/P (MAP) 163/77 (105) 185/94 (124) Pulse Ox 99 100 O2 Delivery Room Air Room Air Room Air Room Air 07/12/18 07/12/18 07/12/18 07/12/18 05:10 07:00 08:55 08:56 Temp 97.9 97.9 Pulse 86 86 Resp 16 B/P (MAP) 177/79 (111) 177/79 Pulse Ox 98 98 O2 Delivery Room Air Room Air Room Air Intake and Output 07/11/18 07/11/18 07/12/18 15:01 23:01 07:01 Intake Total 240 ml 1000 ml Balance 240 ml 1000 ml Nutrition Consultation Dietary Evaluation: Recommendations by RD: PPN/TPN Comments: continue with gi soft diet and Home TPN Expected Outcomes/Goals: wt maintainance Malnutrition Findings: Body Fat Depletion (Non Severe: Mild Depletion Weight Status: Appropriate BENITA LUTZ MD Jul 12, 2018 10:06
[2018-07-12] MEDS ORDERED: HYDR-2145 PO (10:08)
[2018-07-12 11:13] LABS: BASO # 0.2 x10^3/uL (0.0-0.2); BASO % 3 % (0-3); EOS # 0.8 x10^3/uL (0.0-0.7); EOS % 11 % (0-3); HEMATOCRIT 30.8 % (36.0-47.0); HEMOGLOBIN 9.8 g/dL (12.0-15.5); LYMPH # 1.5 x10^3/uL (1.0-4.8); LYMPH % 22 % (24-48); MEAN CORPUSCULAR HEMOGLOBIN 26 pg (25-35); MEAN CORPUSCULAR HGB CONC 32 g/dL (31-37); MEAN CORPUSCULAR VOLUME 82 fL (79-100); MONO # 0.4 x10^3/uL (0.0-1.1); MONO % 5 % (0-9); NEUT # 4.1 x10^3uL (1.8-7.7); NEUT % 59 % (31-73); PLATELET COUNT 481 x10^3/uL (140-400); RED BLOOD COUNT 3.76 x10^6/uL (3.50-5.40); RED CELL DISTRIBUTION WIDTH 19.8 % (11.5-14.5)
[2018-07-12 11:28] LABS: CALCIUM 9.6 mg/dL (8.5-10.1); CREATININE 0.9 mg/dL (0.6-1.0); GFR 76.5; POTASSIUM 4.3 mmol/L (3.5-5.1)
--- NOTE | 2018-07-12 12:22 | PDOC ---
Subjective: Subjective: RN helping apply ointment over fistulae. Pt says lots of drainage - I suggested maybe increased output is related to eating solid foods - says she doesn't think so but maybe sometimes. Supposed to go home after labs rechecked - has Rx for HCTZ. Objective: Vital Signs: Vital Signs Date Time Temp Pulse Resp B/P (MAP) Pulse Ox O2 Delivery O2 Flow Rate FiO2 07/12/18 12:07 98 Room Air 07/12/18 08:55 86 177/79 07/12/18 07:00 97.9 16 97.9 Labs: Laboratory Tests Test 07/11/18 19:07 07/12/18 00:17 07/12/18 06:30 07/12/18 10:55 Glucose (Fingerstick) 138 mg/dL 109 mg/dL 105 mg/dL White Blood Count 7.0 x10^3/uL Red Blood Count 3.76 x10^6/uL Hemoglobin 9.8 g/dL Hematocrit 30.8 % Mean Corpuscular Volume 82 fL Mean Corpuscular Hemoglobin 26 pg Mean Corpuscular Hemoglobin Concent 32 g/dL Red Cell Distribution Width 19.8 % Platelet Count 481 x10^3/uL Neutrophils (%) (Auto) 59 % Lymphocytes (%) (Auto) 22 % Monocytes (%) (Auto) 5 % Eosinophils (%) (Auto) 11 % Basophils (%) (Auto) 3 % Neutrophils # (Auto) 4.1 x10^3uL Lymphocytes # (Auto) 1.5 x10^3/uL Monocytes # (Auto) 0.4 x10^3/uL Eosinophils # (Auto) 0.8 x10^3/uL Basophils # (Auto) 0.2 x10^3/uL Sodium Level 137 mmol/L Potassium Level 4.3 mmol/L Chloride Level 102 mmol/L Carbon Dioxide Level 26 mmol/L Anion Gap 9 Blood Urea Nitrogen 36 mg/dL Creatinine 0.9 mg/dL Estimated GFR (Cockcroft-Gault) 76.5 Glucose Level 163 mg/dL Calcium Level 9.6 mg/dL PE: GEN: NAD LUNGS: CTAB HEART: RRR ABD: erythema/irritation, covered in ointment NEURO/PSYCH: A & O �3, drowsy A/P: Chronic anemia - stable Suspect intermittent obstruction w/ chronic fistulae -- DC per primary. MAYUR-BRANINE,MIESHA PA Jul 12, 2018 12:22
[2018-07-12 14:58] VITALS: BP 175/96
--- NOTE | 2018-07-12 19:22 | NUR ---
Discharge Note: HERMAN MONCADA Discharge instructions and discharge home medications reviewed with Patient and a copy given. All questions have been answered and understanding verbalized. The following instructions and handouts were given: Diet, activity, medication list and follow up instructions provided to patient. Discontinued lines and drains: Central Line DL intact, patient uses TPN at home. Dressing changed prior to discharge. Patient discharged to Home w/services withFamily Membervia Wheelchair
== END 2018-07-12 19:10 | disposition home health service (06) | DRG 871 ==
LOC: ER 09:24 → 6 SOUTH 11:30
PROVIDERS: ADMIT Internal Medicine; ATTEND Internal Medicine
PROC: 30233N1 Transfusion of Nonautologous Red Blood Cells into Peripheral Vein, Percutaneous Approach (ICD-10-PCS; principal; 2018-06-30)
DX: A41.9 Sepsis, unspecified organism (principal); E43 Unspecified severe protein-calorie malnutrition; K63.2 Fistula of intestine; N39.0 Urinary tract infection, site not specified; E87.1 Hypo-osmolality and hyponatremia; Z68.1 Body mass index [BMI] 19.9 or less, adult; N32.1 Vesicointestinal fistula; B96.20 Unspecified Escherichia coli [E. coli] as the cause of diseases classified elsewhere; E83.42 Hypomagnesemia; D63.8 Anemia in other chronic diseases classified elsewhere; E83.51 Hypocalcemia; E87.5 Hyperkalemia; E87.6 Hypokalemia; F41.9 Anxiety disorder, unspecified; F32.9 Major depressive disorder, single episode, unspecified; G89.29 Other chronic pain; I10 Essential (primary) hypertension; L29.9 Pruritus, unspecified; Z79.899 Other long term (current) drug therapy; Z85.41 Personal history of malignant neoplasm of cervix uteri; Z87.11 Personal history of peptic ulcer disease; Z90.49 Acquired absence of other specified parts of digestive tract; Z90.710 Acquired absence of both cervix and uterus; Z88.8 Allergy status to other drugs, medicaments and biological substances; Z91.048 Other nonmedicinal substance allergy status
CPT/HCPCS: 36415; 71045; 74176; 80048; 80076; 81001; 82040; 82274; 82310; 82962; 83690; 83735; 84100; 84478; 84484; 85025; 85610; 85730; 86850; 86900; 86901; 86920; 87086; 87186; 93005; 96365; J0610; J1170; J1940; J2405; J2543; J3010; J3475; J3480; J7030; J7042; P9016; Q0163; 99285-25; G0378

== ENCOUNTER 2018-08-10 15:48 | Inpatient (IN) | payer MEDICARE ==
[~2018-08-10] VITALS: Ht 162.6 cm; Wt 48.1 kg
[~2018-08-10 15:48] MED LIST changes: +DULO30CA43 PO; -DULO30CA44 PO; +PANT40TA3 PO; +PANT40TA5 PO; -PANT40TA77 PO
[2018-08-10] MEDS ORDERED: fentaNYL PF VIAL 100 MCG/2 ML VIAL IV ONE (16:15)
[2018-08-10] MEDS ORDERED: ONDANSETRON PF 4 MG/2 ML VIAL. IV ONE (16:15)
[2018-08-10] MEDS ORDERED: IV NORMAL SALINE 1000ML BAG 1,000 ML IV ONE (16:15)
[2018-08-10 16:34] LABS: BASO # 0.1 x10^3/uL (0.0-0.2); BASO % 2 % (0-3); EOS # 0.3 x10^3/uL (0.0-0.7); EOS % 6 % (0-3); HEMATOCRIT 32.9 % (36.0-47.0); HEMOGLOBIN 10.7 g/dL (12.0-15.5); LYMPH # 1.1 x10^3/uL (1.0-4.8); LYMPH % 23 % (24-48); MEAN CORPUSCULAR HEMOGLOBIN 26 pg (25-35); MEAN CORPUSCULAR HGB CONC 32 g/dL (31-37); MEAN CORPUSCULAR VOLUME 80 fL (79-100); MONO # 0.5 x10^3/uL (0.0-1.1); MONO % 11 % (0-9); NEUT # 2.8 x10^3uL (1.8-7.7); NEUT % 58 % (31-73); PLATELET COUNT 351 x10^3/uL (140-400); RED CELL DISTRIBUTION WIDTH 19.8 % (11.5-14.5); WHITE BLOOD COUNT 4.9 x10^3/uL (4.0-11.0)
[2018-08-10 16:51] LABS: ALBUMIN 2.6 g/dL (3.4-5.0); ALBUMIN/GLOBULIN RATIO 0.4 (1.0-1.7); CALCIUM 8.9 mg/dL (8.5-10.1); CREATININE 0.9 mg/dL (0.6-1.0); GFR 76.5; TOTAL BILIRUBIN 0.4 mg/dL (0.2-1.0); TOTAL PROTEIN 8.4 g/dL (6.4-8.2)
[2018-08-10] MEDS ORDERED: PROM25SU32 RC (17:07)
--- NOTE | 2018-08-10 17:07 | PHYS DOC ---
Past Medical History Past Medical History: Anxiety, Cancer, Diverticulitis, DVT, Hypertension, UTI, Other Additional Past Medical Histor: abd pain,septicemia,Vesicoenteric fistula, cervical CA,blood clot in [place] Past Surgical History: Hysterectomy, Other Additional Past Surgical Histo: bowel resection,ab fistula,BILAT HIP Alcohol Use: None Drug Use: None Adult General Chief Complaint Chief Complaint: ABDOMINAL PAIN HPI HPI 63-year-old female with multiple medical problems including a vesicoenteric fistula presents with more abdominal pain. She states she takes Dilaudid at home but is having more pain in nausea today. She denies any fever chills or sweats. She states the drainage from her fistula is no different. Denies any melena or hematemesis.[] Review of Systems Review of Systems Constitutional: Denies fever or chills [] Eyes: Denies change in visual acuity, redness, or eye pain [] HENT: Denies nasal congestion or sore throat [] Respiratory: Denies cough or shortness of breath [] Cardiovascular: No additional information not addressed in HPI [] GI: Per history of present illness[] : Denies dysuria or hematuria [] Musculoskeletal: Denies back pain or joint pain [] Integument: Denies rash or skin lesions [] Neurologic: Denies headache, focal weakness or sensory changes [] Endocrine: Denies polyuria or polydipsia [] All other systems were reviewed and found to be within normal limits, except as documented in this note. Current Medications Current Medications Current Medications Medications (Trade) Dose Ordered Sig/Alex Start Time Stop Time Status Last Admin Dose Admin Fentanyl Citrate (Fentanyl 2ml Vial) 50 mcg 1X ONCE 08/10/18 16:15 08/10/18 16:18 DC 08/10/18 16:37 50 MCG Ondansetron HCl (Zofran) 4 mg 1X ONCE 08/10/18 16:15 08/10/18 16:18 DC 08/10/18 16:36 4 MG Sodium Chloride 1,000 ml @ 1,000 mls/hr 1X ONCE 08/10/18 16:15 08/10/18 17:14 08/10/18 16:36 1,000 MLS/HR Allergies Allergies Allergies Coded Allergies Type Severity Reaction Last Updated Verified Iodinated Contrast- Oral and IV Dye Allergy Severe Anaphylaxis 09/14/17 Yes vancomycin Allergy Severe Swelling 09/14/17 Yes adhesive tape Allergy Intermediate Rash 09/14/17 Yes silver Allergy Intermediate Rash, Tegaderm film, can have on abd but no where else 09/14/17 Yes codeine Adverse Reaction Severe Nausea and Vomiting 09/14/17 Yes Physical Exam Physical Exam Constitutional: Well developed, well nourished, moderate distress, non-toxic appearance. [] HENT: Normocephalic, atraumatic, bilateral external ears normal, oropharynx moist, no oral exudates, nose normal. [] Eyes: PERRLA, EOMI, conjunctiva normal, no discharge. [] Neck: Normal range of motion, no tenderness, supple, no stridor. [] Cardiovascular:Heart rate regular rhythm, no murmur [] Lungs & Thorax: Bilateral breath sounds clear to auscultation [] Abdomen: Diffusely tender she does have an enteric fistula draining yellow material[] Skin: Warm, dry, no erythema, no rash. [] Back: No tenderness, no CVA tenderness. [] Extremities: No tenderness, no cyanosis, no clubbing, ROM intact, no edema. [] Neurologic: Alert and oriented X 3, normal motor function, normal sensory function, no focal deficits noted. [] Psychologic: Extremely anxious] Current Patient Data Vital Signs Vital Signs Date Time Temp Pulse Resp B/P (MAP) Pulse Ox O2 Delivery O2 Flow Rate FiO2 08/10/18 16:37 16 99 Room Air 08/10/18 15:55 98.3 94 111/88 (96) 98.3 Lab Values Laboratory Tests Test 08/10/18 16:26 White Blood Count 4.9 x10^3/uL (4.0-11.0) Red Blood Count 4.10 x10^6/uL (3.50-5.40) Hemoglobin 10.7 g/dL (12.0-15.5) L Hematocrit 32.9 % (36.0-47.0) L Mean Corpuscular Volume 80 fL (79-100) Mean Corpuscular Hemoglobin 26 pg (25-35) Mean Corpuscular Hemoglobin Concent 32 g/dL (31-37) Red Cell Distribution Width 19.8 % (11.5-14.5) H Platelet Count 351 x10^3/uL (140-400) Neutrophils (%) (Auto) 58 % (31-73) Lymphocytes (%) (Auto) 23 % (24-48) L Monocytes (%) (Auto) 11 % (0-9) H Eosinophils (%) (Auto) 6 % (0-3) H Basophils (%) (Auto) 2 % (0-3) Neutrophils # (Auto) 2.8 x10^3uL (1.8-7.7) Lymphocytes # (Auto) 1.1 x10^3/uL (1.0-4.8) Monocytes # (Auto) 0.5 x10^3/uL (0.0-1.1) Eosinophils # (Auto) 0.3 x10^3/uL (0.0-0.7) Basophils # (Auto) 0.1 x10^3/uL (0.0-0.2) Sodium Level 138 mmol/L (136-145) Potassium Level 3.0 mmol/L (3.5-5.1) L Chloride Level 102 mmol/L (98-107) Carbon Dioxide Level 25 mmol/L (21-32) Anion Gap 11 (6-14) Blood Urea Nitrogen 17 mg/dL (7-20) Creatinine 0.9 mg/dL (0.6-1.0) Estimated GFR (Cockcroft-Gault) 76.5 BUN/Creatinine Ratio 19 (6-20) Glucose Level 121 mg/dL (70-99) H Calcium Level 8.9 mg/dL (8.5-10.1) Total Bilirubin 0.4 mg/dL (0.2-1.0) Aspartate Amino Transferase (AST) 12 U/L (15-37) L Alanine Aminotransferase (ALT) 7 U/L (14-59) L Alkaline Phosphatase 108 U/L (46-116) Total Protein 8.4 g/dL (6.4-8.2) H Albumin 2.6 g/dL (3.4-5.0) L Albumin/Globulin Ratio 0.4 (1.0-1.7) L Lipase 97 U/L (73-393) Laboratory Tests 08/10/18 16:26 Laboratory Tests 08/10/18 16:26 EKG EKG [] Radiology/Procedures Radiology/Procedures [] Course & Med Decision Making Course & Med Decision Making Pertinent Labs and Imaging studies reviewed. (See chart for details) [ED course: Evaluation reveals a 63-year-old female well known to our emergency department. I did not feel like there was much new going on with her today. I did give her some IV fluids and fentanyl along with some Zofran during her stay here. She states that typically doesn't work and she needs IV Dilaudid. I did not elect to give her Dilaudid as she has that medicine at home. Patient at this point has essentially unremarkable laboratory studies she is safe for discharge home.] Dragon Disclaimer Dragon Disclaimer This electronic medical record was generated, in whole or in part, using a voice recognition dictation system. Departure Departure Impression: Primary Impression: Abdominal pain Additional Impression: Enterocutaneous fistula Disposition: HOME, SELF-CARE Condition: STABLE Referrals: BENITA CISNEROS MD (PCP) Patient Instructions: Abdominal Pain, Nausea and Vomiting Additional Instructions: Follow with Dr. Cisneros tomorrow for recheck. Return to the emergency department with any new or concerning symptoms Scripts Promethazine HCl (Phenergan) 25 Mg Supp.rect 25 MG RC Q6HRS PRN for NAUSEA, #6 SUPP.RECT Prov: ERNESTO PETTY DO 08/10/18 Problem Qualifiers Primary Impression: Abdominal pain Abdominal location: generalized Qualified Codes: R10.84 - Generalized abdominal pain ERNESTO PETTY DO Aug 10, 2018 17:07
[2018-08-10] MEDS ORDERED: HYDROmorphone 2 MG/ML VIAL IV PRN (17:30)
[2018-08-10] MEDS ORDERED: 0.9 % SODIUM CHLORIDE 10 ML DISP.SYRIN. IV PRN (17:30)
[2018-08-10] MEDS ORDERED: POTASSIUM CHLORIDE 20 MEQ in IV DEXTROSE 5 %-0.45 % NACL 1,000 ML IV SCH (18:00)
[2018-08-10 19:00] VITALS: BP 127/76
[2018-08-10] MEDS ORDERED: LORazepam 0.5 MG TABLET PO PRN (21:00)
[2018-08-10] MEDS ORDERED: ACETAMINOPHEN 325 MG TABLET. PO PRN (21:00)
[2018-08-10] MEDS ORDERED: HYDROmorphone 2 MG TABLET PO PRN ×2 (21:15)
[2018-08-10] MEDS: HYDROmorphone 2 MG/ML VIAL IV PRN (22:04)
[2018-08-10 22:51] VITALS: BP 142/83
[2018-08-10] MEDS: ONDANSETRON PF 4 MG/2 ML VIAL. IV PRN (22:51)
[2018-08-10] MEDS: ZOLPIDEM 5 MG TABLET. PO PRN (22:52)
[2018-08-11] MEDS ORDERED: ZINC OXIDE 20% TOPICAL OINTMENT 28GM TUBE. TP PRN (01:45)
[2018-08-11] MEDS: LIDOCAINE/PRILOCAINE TOPICAL CREAM 5GM TUBE. TP SCH ×3 (02:00→20:35)
[2018-08-11 02:51] VITALS: BP 151/94
[2018-08-11] MEDS: HYDROmorphone 2 MG/ML VIAL IV PRN ×5 (04:36→20:35)
[2018-08-11] MEDS ORDERED: POTASSIUM CL 20MEQ D5-0.45NACL 1,000 ML IV SCH ×2 (05:00→13:00)
--- NOTE | 2018-08-11 06:57 | EKG ---
[facility] [address] [place] [address] Test Date: 2018-08-10 Test Time: 15:58:18 Pat Name: HERMAN MONCADA Department: Room: 563 1 Gender: F Ehs Teacher: : 1955 Requested By: BENITA LUTZ Order Number: [id number] Reading MD: Kun Sewell MD Measurements Intervals [place] Rate: 91 P: 47 VA: 164 QRS: 47 QRSD: 74 T: 65 QT: 350 QTc: 432 Interpretive Statements SINUS RHYTHM Electronically Signed On 08-16-2018 10:26:42 [employer] by Kun Sewell MD
[2018-08-11 07:00] VITALS: BP 124/61
[2018-08-11] MEDS: SERTRALINE 50 MG TABLET. PO SCH (07:49)
[2018-08-11] MEDS: ZINC OXIDE 20% TOPICAL OINTMENT 28GM TUBE. TP SCH ×2 (07:49→20:35)
[2018-08-11 11:03] VITALS: BP 138/66
[2018-08-11] MEDS: ONDANSETRON PF 4 MG/2 ML VIAL. IV PRN ×2 (11:57→23:18)
[2018-08-11] MEDS ORDERED: ACETAMINOPHEN 325 MG TABLET. PO PRN (12:15)
--- NOTE | 2018-08-11 12:36 | PDOC ---
Provider Note Provider Note history and physical dictated # [id number] BENITA LUTZ MD Aug 11, 2018 12:36
[2018-08-11] MEDS: NYSTATIN 100,000 UNIT/GM TOPICAL CREAM 15GM TUBE. TP SCH ×2 (12:48→20:35)
[2018-08-11] MEDS: POTASSIUM CHL 20MEQ PREMIX 50 ML IV SCH ×2 (12:49→15:47)
[2018-08-11] MEDS: TPN PER PHARMACY MC PRN ×3 (12:55→13:38)
--- NOTE | 2018-08-11 12:58 | HP ---
ADMIT DATE: 08/10/2018 LOCATION: Room 563. HISTORY OF PRESENT ILLNESS: The patient is a 63-year-old -B[place] female who has a history of an enterocutaneous fistula and enterovesical fistula maintained on home total parenteral nutrition. The patient actually was supposed to be seen in the office yesterday, but did not show up to the office due to the onset of nausea and vomiting and also had some chest discomfort. She sought help at the [facility] Emergency Room and was subsequently admitted to the hospital for further evaluation. Her bowels have been regular. She denies any hematemesis or any black or bloody stools. She does have chronic abdominal pain secondary to abdominal adhesions from her previous abdominal surgeries. She notes that she had an episode of chest pain that she has had yesterday, described as a pressure. She denies any odynophagia or dysphagia to solid foods and the pain has been persistent. An electrocardiogram done in the Emergency Room showed early repolarization in the inferior and lateral precordial leads. Her potassium was noted to be low at 3.0 and she is admitted to the hospital for further evaluation of her chest pain, nausea and vomiting. ALLERGIES AND INTOLERANCES: INCLUDE ORAL AND IV DYE, ADHESIVE TAPE, CODEINE, SILVER, AND IV VANCOMYCIN. MEDICATIONS: Prior to admission include Dilaudid 2 mg q.i.d. p.r.n., lidocaine 5% followed by zinc oxide 20% on her abdominal wall excoriated areas b.i.d., lorazepam 0.5 mg every 6 hours p.r.n., Protonix 40 mg every day p.r.n., sertraline 50 mg every day, trazodone 50 mg at bedtime p.r.n., Tylenol 325 mg 1-2 every 6 hours p.r.n., Zofran 4 mg every 6 hours p.r.n. and she is on TPN at 80 mL an hour at home. PAST MEDICAL HISTORY: Significant for an enterocutaneous fistula and enterovesical fistula. She has a history of esophagitis and gastritis in 2011, peptic ulcer disease in the past. She has had diverticulosis and depression, reflux esophagitis. She had recurrent sepsis related to her PICC line in the past. She has had 5 abdominal procedures to reverse her enterocutaneous fistula, all of which have failed. SOCIAL HISTORY: She does not drink alcohol nor does she smoke cigarettes. She receives home health and home TPN at home continuously. FAMILY HISTORY: Noncontributory. REVIEW OF SYSTEMS: GENERAL: There has been no fever, chills or sweats. CARDIOVASCULAR: She had some chest pressure. PULMONARY: No cough, but she has some shortness of breath associated with chest pressure yesterday. GASTROINTESTINAL: She has nausea and vomiting. ENDOCRINE: No diabetes mellitus. SKIN: No rashes. The rest of systems reviewed are negative except as stated in history of present illness. PHYSICAL EXAMINATION: VITAL SIGNS: Temperature 97.3 degrees, apical pulse regular at 56, respiratory rate 18, blood pressure is 138/66, oxygen saturation 95% on room air. HEENT: Eyes: Gaze is conjugate. Mouth: Tongue is midline. NECK: There is no cervical lymphadenopathy or thyroid enlargement. HEART: Reveals an S1, S2. There is no S3 or murmur. LUNGS: Clear. ABDOMEN: Soft, bowel sounds positive, not distended. She has got chronic excoriation of the abdominal wall from the enterocutaneous fistula contents. No guarding. EXTREMITIES: Lower extremities without edema. SKIN: No rashes. NEUROLOGIC: Revealed no focal weakness of the extremities or facial asymmetry. She is coherent. LABORATORY DATA: Review of her laboratory tests, sodium 138, potassium 3.0, chloride 102, total CO2 of 25, BUN 17, creatinine 0.9, blood sugar 121. The liver function tests were normal. Albumin 2.6, lipase was 97. White count 4.9, hemoglobin 10.7 with a platelet count of 351,000; 58 polys and 23 lymphocytes. EKG showed normal sinus rhythm with early repolarization in the inferior and lateral precordial leads. I did see a chest x-ray or KUB ordered. ASSESSMENT: 1. Intractable nausea and vomiting, onset yesterday. 2. Chest pain/chest pressure. 3. Hypokalemia, most likely related to the vomiting. 4. Enterocutaneous fistula. 5. Enterovesical fistula. 6. Hypertension. 7. Severe protein-calorie malnutrition. 8. Anemia of chronic disease. PLAN: At this time is to admit her to the hospital as a full admit. We will order some Zofran 4 mg IV every 6 hours p.r.n. for the nausea and vomiting, obtain a KUB and I will consult Dr. Ovalle for GI. For the hyperkalemia, we will give her 20 mEq of potassium chloride IV x 2 and I spoke with the pharmacist regarding that. We will order her TPN and continue IV fluids for now. Once the TPN is started, we will discontinue the IV fluids. In addition, we will consult Dr. Sewell for the chest pressure and we will get a troponin level now and repeat it in the morning. We will get an echocardiogram. We will make her n.p.o. except for ice chips and sips of water. Continue with her abdominal wall local care with the lidocaine cream and the zinc oxide. We will continue with the p.r.n. IV Dilaudid also for her chronic abdominal pain related to adhesions. Recheck her laboratory test tomorrow including CBC, BMP and a magnesium level. BENITA LUTZ MD DR: NABILA/jd JOB#: [id number] / [id number]
--- NOTE | 2018-08-11 13:02 | NUR ---
CLARICE following for discharge planning. Discussed with RN. Pt known to SW team, has had [facility] and [facility] in the past. CLARICE will continue to follow for discharge needs.
--- NOTE | 2018-08-11 13:09 | PDOC2 ---
GI CONSULT Reason For Consult: N/v and chest pain HPI: HPI: Pleasant 63 y/o female who we have seen in the past. She is drowsy. H/o complicated diverticular disease w/ enterocutaneous fistulas w/ numerous ( unsuccessful) surgeries in the past (at [facility], , [facility]). Intermittent n/v, chronic abd pain, and fluctuating fistulae drainage (in past suspected related to intermittent obstruction). Reports n/v x 2 days, denies precipitating events. Has abdominal pain - says it 's worse if she doesn't have a stool for a couple days but also says has been stooling normally (last yesterday afternoon). Drainage is stable. Last vomited ~1 hour ago. On TPN and Dilaudid at home. EGD pathology (Dr. Arellano) 09/2017 - ana esophagitis (negative for Wallace's) . Records indicate colonoscopy in 2011 w/ diverticulosis and previous resection. S/p cholecystectomy (does not recall stones). H/o elevated LFTs, MRCP showed "kink" in CBD. PMH: PMH: HTN, cervical cancer (w/ radium implants), UE DVT, anxiety, sepsis, UTI, esophagitis and gastritis, ?PUD, SBO, diverticulosis, CKD, hypothyroidism, fistulas as above, SBO, appendectomy, cholecystectomy, hysterectomy, bilateral hip pinning, multiple laparotomies, I&D superficial abdominal wall/skin abscess , PICC placement, G tube placement/removal, colon resection FH: Family History: No pertinent hx Social History: ALCOHOL: none Drugs: None ROS: GEN: Denies fevers, chills, sweats HEENT: Denies blurred vision, sore throat CV: ?chest pain RESP: Denies shortness of air, cough GI: Per HPI : Denies hematuria, dysuria ENDO: Denies weight changes NEURO: Denies confusion, dizziness MSK: +weakness SKIN: Denies jaundice, pruritus Vitals: Vitals: Vital Signs Date Time Temp Pulse Resp B/P (MAP) Pulse Ox O2 Delivery O2 Flow Rate FiO2 08/11/18 12:27 20 95 Room Air 08/11/18 11:03 97.3 56 138/66 (90) 97.3 Labs: Labs: Laboratory Tests Test 08/10/18 16:26 08/11/18 08:02 08/11/18 11:43 White Blood Count 4.9 x10^3/uL (4.0-11.0) Red Blood Count 4.10 x10^6/uL (3.50-5.40) Hemoglobin 10.7 g/dL (12.0-15.5) Hematocrit 32.9 % (36.0-47.0) Mean Corpuscular Volume 80 fL (79-100) Mean Corpuscular Hemoglobin 26 pg (25-35) Mean Corpuscular Hemoglobin Concent 32 g/dL (31-37) Red Cell Distribution Width 19.8 % (11.5-14.5) Platelet Count 351 x10^3/uL (140-400) Neutrophils (%) (Auto) 58 % (31-73) Lymphocytes (%) (Auto) 23 % (24-48) Monocytes (%) (Auto) 11 % (0-9) Eosinophils (%) (Auto) 6 % (0-3) Basophils (%) (Auto) 2 % (0-3) Neutrophils # (Auto) 2.8 x10^3uL (1.8-7.7) Lymphocytes # (Auto) 1.1 x10^3/uL (1.0-4.8) Monocytes # (Auto) 0.5 x10^3/uL (0.0-1.1) Eosinophils # (Auto) 0.3 x10^3/uL (0.0-0.7) Basophils # (Auto) 0.1 x10^3/uL (0.0-0.2) Sodium Level 138 mmol/L (136-145) Potassium Level 3.0 mmol/L (3.5-5.1) Chloride Level 102 mmol/L (98-107) Carbon Dioxide Level 25 mmol/L (21-32) Anion Gap 11 (6-14) Blood Urea Nitrogen 17 mg/dL (7-20) Creatinine 0.9 mg/dL (0.6-1.0) Estimated GFR (Cockcroft-Gault) 76.5 BUN/Creatinine Ratio 19 (6-20) Glucose Level 121 mg/dL (70-99) Calcium Level 8.9 mg/dL (8.5-10.1) Total Bilirubin 0.4 mg/dL (0.2-1.0) Aspartate Amino Transf (AST/SGOT) 12 U/L (15-37) Alanine Aminotransferase (ALT/SGPT) 7 U/L (14-59) Alkaline Phosphatase 108 U/L (46-116) Total Protein 8.4 g/dL (6.4-8.2) Albumin 2.6 g/dL (3.4-5.0) Albumin/Globulin Ratio 0.4 (1.0-1.7) Lipase 97 U/L (73-393) Glucose (Fingerstick) 103 mg/dL (70-99) 106 mg/dL (70-99) Allergies: Coded Allergies: Iodinated Contrast- Oral and IV Dye (Verified Allergy, Severe, Anaphylaxis , 09/14/17) PT HAS BEEN PREMEDICATED BEFORE WITH NO PROBLEMS, 11-27-. vancomycin (Verified Allergy, Severe, Swelling, 09/14/17) adhesive tape (Verified Allergy, Intermediate, Rash, 09/14/17) silver (Verified Allergy, Intermediate, Rash, Tegaderm film, can have on abd but no where else, 09/14/17) codeine (Verified Adverse Reaction, Severe, Nausea and Vomiting, 09/14/17) Medications: Current Medications Medications (Trade) Dose Ordered Sig/Alex Route PRN Reason Start Time Stop Time Status Last Admin Dose Admin Sodium Chloride 1,000 ml @ 1,000 mls/hr 1X ONCE IV 08/10/18 16:15 08/10/18 17:14 DC 08/10/18 16:36 Fentanyl Citrate (Fentanyl 2ml Vial) 50 mcg 1X ONCE IV 08/10/18 16:15 08/10/18 16:18 DC 08/10/18 16:37 Ondansetron HCl (Zofran) 4 mg 1X ONCE IV 08/10/18 16:15 08/10/18 16:18 DC 08/10/18 16:36 Potassium Chloride 20 meq/ Dextrose/Sodium Chloride 1,010 ml @ 75 mls/hr [id number] IV 08/10/18 18:00 08/11/18 04:39 DC 08/10/18 17:54 Hydromorphone HCl (Dilaudid) 0.2 mg PRN Q1HR PRN IV PAIN 08/10/18 17:30 08/10/18 21:03 DC 08/10/18 18:50 Ondansetron HCl (Zofran) 4 mg PRN Q6HRS PRN IV Nausea 08/10/18 17:30 08/11/18 11:57 Sertraline HCl (Zoloft) 50 mg DAILY PO 08/11/18 09:00 08/11/18 07:49 Zolpidem Tartrate (Ambien) 5 mg PRN QHS PRN PO INSOMNIA 08/10/18 21:00 08/10/18 22:52 Hydromorphone HCl (Dilaudid) 2 mg PRN Q4HRS PRN IV PAIN MILD TO MODERATE 08/10/18 21:00 08/11/18 11:57 Zinc Oxide (Zinc Oxide 20% Topical) 1 nallely BID TP 08/11/18 09:00 08/11/18 07:49 Lidocaine/ Prilocaine (Emla) 1 nallely BID TP 08/11/18 02:00 08/11/18 07:49 Potassium Chloride/Dextrose/ Sod Cl 1,000 ml @ 75 mls/hr [id number] IV 08/11/18 05:00 08/11/18 12:35 DC 08/11/18 05:52 Nystatin (Mycostatin) 1 anllely BID TP 08/11/18 13:00 08/11/18 12:48 Potassium Chloride/Water 50 ml @ 50 mls/hr Q1H IV 08/11/18 13:00 08/11/18 14:59 08/11/18 12:49 Potassium Chloride/Dextrose/ Sod Cl 1,000 ml @ 75 mls/hr [id number] IV 08/11/18 13:00 08/11/18 12:49 PE: GEN: NAD HEENT: Atraumatic, PERRL LUNGS: CTAB HEART: RRR ABD: tender to light touch, towels for drainage are dry, chronic fistulae - ? less erythema than usual EXTREMITY: No edema SKIN: No rashes, no jaundice NEURO/PSYCH: A & O 3, drowsy, in and out of sleep during interview A/P: A/P: N/v - chronic issue H/o diverticular disease w/ enterocutaneous fistulas and numerous surgeries Chronic abd pain, fluctuating fistulae drainage CRC screen - UTD Chronic anemia - improved from last admission Hypokalemia S/p cholecystectomy -- Has orders for KUB - await this. Would keep NPO for now - has ice chips. Will return later w/ Dr. Ovalle. MIESHA RICO Aug 11, 2018 13:09
--- NOTE | 2018-08-11 14:16 | RAD ---
Single view of the chest. 08/11/2018 12:13 PM Indication: CHEST PAIN Comparison: Chest radiograph June 30, 2018 Findings: Right internal jugular power line, stable in position. No pneumothorax or pleural effusion is identified. Mild aortic calcification noted. Heart size is normal. Mild diffuse interstitial coarsening is similar. No acute osseous changes are noted in the interim. IMPRESSION: Stable radiographic appearance of the chest without evidence of acute cardiopulmonary process. Electronically signed by: Efren Dubon MD (08/11/2018 2:13 PM) [id number]
--- NOTE | 2018-08-11 14:42 | PDOC2 ---
VINEET MIXON ZONING ADMINISTRATOR 08/11/18 1442: CARDIAC CONSULT DATE OF CONSULT Date of Consult DATE: 08/11/18 TIME: 14:20 REASON FOR CONSULT Reason for Consult: Chest pain REFERRING PHYSICIAN Referring Physician: Blayne SOURCE Source: Chart review, Patient HISTORY OF PRESENT ILLNESS HISTORY OF PRESENT ILLNESS This is a 63 yo female admitted for complains of nausea, vomiting and chest pain. Reports that she started having nausea and vomiting in the last 3 days. Her vomit is colored green. Her chest pain occurred at that same period. This is isolated to epigastric and mid chest achy sensation. No chills or fever. Denies any SOA, palpitations. No exertional CP nor SEGUNDO. She has extensive abdominal surgery including lysis of adhesions and bowel surgery with still has EC fistula. No prior CAD, MVA or any hx of arrhythmias. PAST MEDICAL HISTORY Cardiovascular: HTN Pulmonary: No pertinent hx CENTRAL NERVOUS SYSTEM: Other (No pertinent history) GI: Diverticulosis, GERD, Peptic Ulcer disease, Other (enterocutaneous fistula , SBO) Heme/Onc: Anemia NOS, Cancer (cervical with radium implants), Other (UE DVT) Hepatobiliary: No pertinent hx Psych: Anxiety, Depression Musculoskeletal: Osteoarthritis Rheumatologic: No pertinent hx Infectious disease: Other (recurrent sepsis) Renal/: Chronic renal insuff, UTI Endocrine: Hypothyroidism PAST SURGICAL HISTORY Past Surgical History: Appendectomy, Arthroscopy (bilateral hip pinning), Tonsillectomy, Hysterectomy, Colon Resection, Other (5 abdominal procedures) FAMILY HISTORY Family History noncontributory SOCIAL HISTORY Smoke: No ALCOHOL: none Drugs: Marijuana CURRENT MEDICATIONS CURRENT MEDICATIONS Current Medications Medications (Trade) Dose Ordered Sig/Alex Route PRN Reason Start Time Stop Time Status Last Admin Dose Admin Sodium Chloride 1,000 ml @ 1,000 mls/hr 1X ONCE IV 08/10/18 16:15 08/10/18 17:14 DC 08/10/18 16:36 Fentanyl Citrate (Fentanyl 2ml Vial) 50 mcg 1X ONCE IV 08/10/18 16:15 08/10/18 16:18 DC 08/10/18 16:37 Ondansetron HCl (Zofran) 4 mg 1X ONCE IV 08/10/18 16:15 08/10/18 16:18 DC 08/10/18 16:36 Potassium Chloride 20 meq/ Dextrose/Sodium Chloride 1,010 ml @ 75 mls/hr [id number] IV 08/10/18 18:00 08/11/18 04:39 DC 08/10/18 17:54 Hydromorphone HCl (Dilaudid) 0.2 mg PRN Q1HR PRN IV PAIN 08/10/18 17:30 08/10/18 21:03 DC 08/10/18 18:50 Ondansetron HCl (Zofran) 4 mg PRN Q6HRS PRN IV Nausea 08/10/18 17:30 08/11/18 11:57 Sertraline HCl (Zoloft) 50 mg DAILY PO 08/11/18 09:00 08/11/18 07:49 Zolpidem Tartrate (Ambien) 5 mg PRN QHS PRN PO INSOMNIA 08/10/18 21:00 08/10/18 22:52 Info (Tpn Per Pharmacy) 1 each PRN DAILY PRN MC SEE COMMENTS 08/10/18 21:15 08/11/18 13:38 Hydromorphone HCl (Dilaudid) 2 mg PRN Q4HRS PRN IV PAIN MILD TO MODERATE 08/10/18 21:00 08/11/18 11:57 Zinc Oxide (Zinc Oxide 20% Topical) 1 nallely BID TP 08/11/18 09:00 08/11/18 07:49 Lidocaine/ Prilocaine (Emla) 1 nallely BID TP 08/11/18 02:00 08/11/18 07:49 Potassium Chloride/Dextrose/ Sod Cl 1,000 ml @ 75 mls/hr [id number] IV 08/11/18 05:00 08/11/18 12:35 DC 08/11/18 05:52 Nystatin (Mycostatin) 1 nallely BID TP 08/11/18 13:00 08/11/18 12:48 Potassium Chloride/Water 50 ml @ 50 mls/hr Q1H IV 08/11/18 13:00 08/11/18 14:59 08/11/18 12:49 Potassium Chloride/Dextrose/ Sod Cl 1,000 ml @ 75 mls/hr [id number] IV 08/11/18 13:00 08/11/18 22:00 08/11/18 12:49 ALLERGIES ALLERGIES: Coded Allergies: Iodinated Contrast- Oral and IV Dye (Verified Allergy, Severe, Anaphylaxis , 4/3/18) PT HAS BEEN PREMEDICATED BEFORE WITH NO PROBLEMS, 6-16-15. vancomycin (Verified Allergy, Severe, Swelling, 09/14/17) adhesive tape (Verified Allergy, Intermediate, Rash, 09/14/17) silver (Verified Allergy, Intermediate, Rash, Tegaderm film, can have on abd but no where else, 09/14/17) codeine (Verified Adverse Reaction, Severe, Nausea and Vomiting, 09/14/17) ROS Review of System 14 point ROS evaluated with pertinent positives noted per HPI PHYSICAL EXAM General: Alert, Oriented X3, Cooperative, No acute distress HEENT: Atraumatic, Mucous membr. moist/pink Lungs: Clear to auscultation, Normal air movement Heart: Regular rate, Normal S1, Normal S2, No murmurs Abdomen: Soft, Other (abd fitula with some tenderness) Extremities: No cyanosis, No edema Skin: Other (abdiminal fistula ) Neuro: Normal speech, Sensation intact Psych/Mental Status: Mental status NL, Mood NL MUSCULOSKELETAL: Osteoarthritic changes both hands VITALS VITALS Vital Signs Date Time Temp Pulse Resp B/P (MAP) Pulse Ox O2 Delivery O2 Flow Rate FiO2 08/11/18 12:27 20 95 Room Air 08/11/18 11:03 97.3 56 138/66 (90) 97.3 LABS Lab: Laboratory Tests Test 08/10/18 16:26 08/11/18 08:02 08/11/18 11:43 08/11/18 13:00 White Blood Count 4.9 x10^3/uL (4.0-11.0) Red Blood Count 4.10 x10^6/uL (3.50-5.40) Hemoglobin 10.7 g/dL (12.0-15.5) Hematocrit 32.9 % (36.0-47.0) Mean Corpuscular Volume 80 fL (79-100) Mean Corpuscular Hemoglobin 26 pg (25-35) Mean Corpuscular Hemoglobin Concent 32 g/dL (31-37) Red Cell Distribution Width 19.8 % (11.5-14.5) Platelet Count 351 x10^3/uL (140-400) Neutrophils (%) (Auto) 58 % (31-73) Lymphocytes (%) (Auto) 23 % (24-48) Monocytes (%) (Auto) 11 % (0-9) Eosinophils (%) (Auto) 6 % (0-3) Basophils (%) (Auto) 2 % (0-3) Neutrophils # (Auto) 2.8 x10^3uL (1.8-7.7) Lymphocytes # (Auto) 1.1 x10^3/uL (1.0-4.8) Monocytes # (Auto) 0.5 x10^3/uL (0.0-1.1) Eosinophils # (Auto) 0.3 x10^3/uL (0.0-0.7) Basophils # (Auto) 0.1 x10^3/uL (0.0-0.2) Sodium Level 138 mmol/L (136-145) Potassium Level 3.0 mmol/L (3.5-5.1) Chloride Level 102 mmol/L (98-107) Carbon Dioxide Level 25 mmol/L (21-32) Anion Gap 11 (6-14) Blood Urea Nitrogen 17 mg/dL (7-20) Creatinine 0.9 mg/dL (0.6-1.0) Estimated GFR (Cockcroft-Gault) 76.5 BUN/Creatinine Ratio 19 (6-20) Glucose Level 121 mg/dL (70-99) Calcium Level 8.9 mg/dL (8.5-10.1) Total Bilirubin 0.4 mg/dL (0.2-1.0) Aspartate Amino Transf (AST/SGOT) 12 U/L (15-37) Alanine Aminotransferase (ALT/SGPT) 7 U/L (14-59) Alkaline Phosphatase 108 U/L (46-116) Total Protein 8.4 g/dL (6.4-8.2) Albumin 2.6 g/dL (3.4-5.0) Albumin/Globulin Ratio 0.4 (1.0-1.7) Lipase 97 U/L (73-393) Glucose (Fingerstick) 103 mg/dL (70-99) 106 mg/dL (70-99) Troponin I Quantitative < 0.017 ng/mL (0.000-0.055) ECHOCARDIOGRAM ECHOCARDIOGRAM <Conclusion> The left ventricular systolic function is normal. The Ejection Fraction is 60-65%. There is normal LV segmental wall motion. Transmitral Doppler flow pattern is Grade I-abnormal relaxation pattern. Trace mitral regurgitation. Trace tricuspid regurgitation. The PA pressure was estimated at 27 mmHg. There is no evidence of significant pericardial effusion. DATE: 03/07/18 1041 ASSESSMENT/PLAN ASSESSMENT/PLAN 1. Nausea/vomiting/abd pain: GI following 2. Atypical chest pain: due to above. initial trop nml. EKG SR with early repolarization, no acute changes by comparison. Recent EF and WM nml. 3. HTN: controlled 4. Multiple exlap with EC fistula and repair 5. Possible UTI: defer to PCP 6. 15 lb wt loss in 1 mo Recommendations 1. NPO currently, resume home BP med when allowed 2. Baseline TTE, trop 3. Nothing further cardiac garcia. YANCI HASTINGS MD 08/11/18 1655: CARDIAC CONSULT ASSESSMENT/PLAN ASSESSMENT/PLAN Pt. seen and examined. Agree with above V BELT COVERER note No clear cardiac symptoms. Echo within normal limits. Supportive care. Pls call with questions. VINEET MIXON APRN Aug 11, 2018 14:42 YANCI HASTINGS MD Aug 11, 2018 22:49
[2018-08-11 14:51] LABS: CHOLESTEROL/HDL RATIO 1.5
--- NOTE | 2018-08-11 14:56 | RAD ---
KUB History: NAUSEA AND VOMITING Comparison: April 15, 2018 Findings: Single supine AP view of the abdomen is submitted. There are 3 screws of the right proximal right femur and single screw of the proximal left femur. There are multiple clips in the abdomen and pelvis. Exam is insufficient for the evaluation for free air. There is some gas more localized in the colon in the central abdomen superiorly. No significant gas dilated small bowel is identified. Impression: 1. No significant gas dilated small bowel is identified. Electronically signed by: Faizan Chung MD (08/11/2018 2:52 PM) [id number]
[2018-08-11 15:03] LABS: CALCIUM 8.5 mg/dL (8.5-10.1); CREATININE 0.7 mg/dL (0.6-1.0); GFR 102.3; MAGNESIUM 1.5 mg/dL (1.8-2.4); POTASSIUM 3.3 mmol/L (3.5-5.1)
[2018-08-11] MEDS ORDERED: MAGNESIUM SULFATE 2GM 50 ML IV ONE (15:30)
--- NOTE | 2018-08-11 15:39 | CARD ---
MR#: [id number] Date of Study: 08/11/2018 Ordering Physician: BENITA LUTZ, Referring Physician: BENITA LUTZ, Tech: Lenka Morales YOU APPROVED REPORT EXAM: Two-dimensional and M-mode echocardiogram with Doppler and color Doppler. Other Information Quality : AverageHR: 50bpm Rhythm : Bradycardia INDICATION Chest Pain 2D DIMENSIONS RVDd2.5 (2.9-3.5cm)IVSd1.1 (0.7-1.1cm) Aortic Root(2D)2.8 (2.0-3.7cm)LVDd2.9 (3.9-5.9cm) LVOT Diameter1.8 (1.8-2.4cm)PWd0.6 (0.7-1.1cm) LVDs1.8 (2.5-4.0cm)FS (%) 37.9 % SV22.9 mlLVEF(%)69.8 (>50%) M-Mode DIMENSIONS Left Atrium(MM)2.08 (2.5-4.0cm)Aortic Root2.91 (2.2-3.7cm) Aortic Valve AoV Peak Zackary.124.0cm/sAoV VTI29.6cm AO Peak GR.0.0mmHgLVOT Peak Zackary.112.0cm/s AO Mean GR.3mmHgAVA (VMAX)2.39cm2 YOKO (VTI)2.40cm2 Mitral Valve MV E Fzsdhnqi64.5cm/sMV DECEL YSHU606op MV A Wyvbhxej11.0cm/sE/A Ratio0.7 MV A Typlmjpv381gs Tricuspid Valve TR P. Oiggnpac073cm/sRAP CJLSSAAV4ebXy TR Peak Gr.21prSnBMQT94mdFg LEFT VENTRICLE The left ventricle cavity is small. Proximal septal thickening is noted. The left ventricular systoli c function is normal. The Ejection Fraction is 65-70%. There is normal LV segmental wall motion. Arroyo smitral Doppler flow pattern is Grade I-abnormal relaxation pattern. RIGHT VENTRICLE The right ventricle is normal size. There is normal right ventricular wall thickness. The right ventr icular systolic function is normal. ATRIA The left atrium size is normal. The right atrium size is normal. The interatrial septum is intact wit h no evidence for an atrial septal defect or patent foramen ovale as noted on 2-D or Doppler imaging. AORTIC VALVE The aortic valve is calcified but opens well. The aortic valve is trileaflet. Doppler and Color Flow revealed no significant aortic regurgitation. There is no significant aortic valvular stenosis. MITRAL VALVE Mitral annular calcification is mild. There is no evidence of mitral valve prolapse. There is no mitr al valve stenosis. Doppler and Color-flow revealed trace mitral regurgitation. TRICUSPID VALVE The tricuspid valve is normal in structure and function. Doppler and Color Flow revealed trace tricus pid regurgitation. The PA pressure was estimated at 26 mmHg. There is no tricuspid valve prolapse or vegetation. There is no tricuspid valve stenosis. PULMONIC VALVE The pulmonic valve is not well visualized. Doppler and Color Flow revealed no pulmonic valvular regur gitation. There is no pulmonic valvular stenosis. GREAT VESSELS The aortic root is normal in size. The ascending aorta is normal in size. PERICARDIAL EFFUSION There is no evidence of significant pericardial effusion. Critical Notification Critical Value: No <Conclusion> The left ventricular systolic function is normal. The Ejection Fraction is 65-70%. There is normal LV segmental wall motion. Transmitral Doppler flow pattern is Grade I-abnormal relaxation pattern. Trace mitral regurgitation. Trace tricuspid regurgitation. The PA pressure was estimated at 26 mmHg. There is no evidence of significant pericardial effusion. Signed by : Naga Nicholas, Electronically Approved : 08/11/2018 15:38:58
[2018-08-11 16:04] VITALS: BP 122/71
[2018-08-11] MEDS: PANTOPRAZOLE IV PUSH 40 MG VIAL. IVP SCH (16:59)
[2018-08-11 19:00] VITALS: BP 133/79
[2018-08-11] MEDS: ZOLPIDEM 5 MG TABLET. PO PRN (20:35)
[2018-08-11] MEDS ORDERED: [UNRECOGNIZED DRUG - OTHER] IV SCH ×12 (22:00)
[2018-08-11] MEDS ORDERED: DEXTROSE 70% IV SCH ×12 (22:00)
[2018-08-11] MEDS ORDERED: AMINO ACID IV SCH ×12 (22:00)
[2018-08-11] MEDS ORDERED: TOTAL PARENTERAL NUTRITION IV SCH ×12 (22:00)
[2018-08-11 23:00] VITALS: BP 160/94
[2018-08-12] MEDS: HYDROmorphone 2 MG/ML VIAL IV PRN ×6 (00:45→22:00)
[2018-08-12 03:00] VITALS: BP 159/86
[2018-08-12] MEDS: PANTOPRAZOLE IV PUSH 40 MG VIAL. IVP SCH (05:09)
[2018-08-12 07:00] VITALS: BP 132/71
[2018-08-12] MEDS: LIDOCAINE/PRILOCAINE TOPICAL CREAM 5GM TUBE. TP SCH ×2 (09:26→20:59)
[2018-08-12 09:27] LABS: BASO # 0.1 x10^3/uL (0.0-0.2); BASO % 3 % (0-3); EOS # 0.3 x10^3/uL (0.0-0.7); EOS % 9 % (0-3); HEMATOCRIT 30.5 % (36.0-47.0); LYMPH % 26 % (24-48); MEAN CORPUSCULAR HEMOGLOBIN 27 pg (25-35); MEAN CORPUSCULAR HGB CONC 33 g/dL (31-37); MEAN CORPUSCULAR VOLUME 83 fL (79-100); MONO # 0.4 x10^3/uL (0.0-1.1); MONO % 9 % (0-9); NEUT % 53 % (31-73); PLATELET COUNT 316 x10^3/uL (140-400); RED BLOOD COUNT 3.68 x10^6/uL (3.50-5.40); RED CELL DISTRIBUTION WIDTH 20.7 % (11.5-14.5); WHITE BLOOD COUNT 3.8 x10^3/uL (4.0-11.0)
[2018-08-12] MEDS: SERTRALINE 50 MG TABLET. PO SCH (09:27)
[2018-08-12] MEDS: ZINC OXIDE 20% TOPICAL OINTMENT 28GM TUBE. TP SCH ×2 (09:27→20:58)
[2018-08-12] MEDS: NYSTATIN 100,000 UNIT/GM TOPICAL CREAM 15GM TUBE. TP SCH ×2 (09:27→21:18)
[2018-08-12] MEDS ORDERED: diphenhydrAMINE HCL 25 MG CAPSULE PO PRN (10:15)
[2018-08-12] MEDS ORDERED: MAG HYDROX/ALUMINUM HYD/SIMETH 30 ML ORAL.SUSP PO PRN (10:15)
--- NOTE | 2018-08-12 10:18 | PDOC ---
PROGRESS NOTES Subjective Subjective feels better. no further chest pain or nausea or vomiting and wants to try mashed potatoes and cottage cheese. cbc reviewed,. other lab pending. echo shows preserved LVEF. seen by cardiology who notes non cardiac chest pain. troponin negative. Objective Objective Vital Signs Date Time Temp Pulse Resp B/P (MAP) Pulse Ox O2 Delivery O2 Flow Rate FiO2 08/12/18 09:28 18 100 Room Air 08/12/18 07:00 97.4 68 132/71 (91) 97.4 Intake and Output 08/12/18 06:59 Intake Total 80 ml Output Total 100 ml Balance -20 ml Intake Oral 80 ml Output Emesis 100 ml # Voids 4 Physical Exam Abdomen: Soft, Other (enterocutaneous fistula) Heart: Regular rate, Normal S1, Normal S2 Extremities: No edema General: Alert HEENT: Atraumatic Lungs: Clear to auscultation Neuro: Normal speech Psych/Mental Status: Mental status NL Skin: No rashes Assessment Assessment Problems1. Intractable nausea and vomiting, onset yesterday. resolved 2. Chest pain/chest pressure. non cardiac and resolved. possible esophageal spasm 3. Hypokalemia, most likely related to the vomiting. 4. Enterocutaneous fistula. 5. Enterovesical fistula. 6. Hypertension. 7. Severe protein-calorie malnutrition. 8. Anemia of chronic disease. hypomagnesemia. received iv magnesium yesterday Medical Problems: (1) Enterocutaneous fistula Status: Acute Plan Plan of Care advance diet continue TPN continue prn IV zofran change to oral protonix spoke with pharmacist who will check on pending bmp and magnesium pharmacist to speak with out patient pharmacist so that her TPN will be ready tomorrow at home dismiss tomorrow if stable Comment Review of Relevant I have reviewed the following items lucila (where applicable) has been applied. Labs Laboratory Tests Test 08/10/18 16:26 08/11/18 08:02 08/11/18 11:43 08/11/18 13:00 White Blood Count 4.9 x10^3/uL (4.0-11.0) Red Blood Count 4.10 x10^6/uL (3.50-5.40) Hemoglobin 10.7 g/dL (12.0-15.5) Hematocrit 32.9 % (36.0-47.0) Mean Corpuscular Volume 80 fL (79-100) Mean Corpuscular Hemoglobin 26 pg (25-35) Mean Corpuscular Hemoglobin Concent 32 g/dL (31-37) Red Cell Distribution Width 19.8 % (11.5-14.5) Platelet Count 351 x10^3/uL (140-400) Neutrophils (%) (Auto) 58 % (31-73) Lymphocytes (%) (Auto) 23 % (24-48) Monocytes (%) (Auto) 11 % (0-9) Eosinophils (%) (Auto) 6 % (0-3) Basophils (%) (Auto) 2 % (0-3) Neutrophils # (Auto) 2.8 x10^3uL (1.8-7.7) Lymphocytes # (Auto) 1.1 x10^3/uL (1.0-4.8) Monocytes # (Auto) 0.5 x10^3/uL (0.0-1.1) Eosinophils # (Auto) 0.3 x10^3/uL (0.0-0.7) Basophils # (Auto) 0.1 x10^3/uL (0.0-0.2) Sodium Level 138 mmol/L (136-145) 140 mmol/L (136-145) Potassium Level 3.0 mmol/L (3.5-5.1) 3.3 mmol/L (3.5-5.1) Chloride Level 102 mmol/L (98-107) 106 mmol/L (98-107) Carbon Dioxide Level 25 mmol/L (21-32) 25 mmol/L (21-32) Anion Gap 11 (6-14) 9 (6-14) Blood Urea Nitrogen 17 mg/dL (7-20) 13 mg/dL (7-20) Creatinine 0.9 mg/dL (0.6-1.0) 0.7 mg/dL (0.6-1.0) Estimated GFR (Cockcroft-Gault) 76.5 102.3 BUN/Creatinine Ratio 19 (6-20) Glucose Level 121 mg/dL (70-99) 114 mg/dL (70-99) Calcium Level 8.9 mg/dL (8.5-10.1) 8.5 mg/dL (8.5-10.1) Total Bilirubin 0.4 mg/dL (0.2-1.0) Aspartate Amino Transf (AST/SGOT) 12 U/L (15-37) Alanine Aminotransferase (ALT/SGPT) 7 U/L (14-59) Alkaline Phosphatase 108 U/L (46-116) Total Protein 8.4 g/dL (6.4-8.2) Albumin 2.6 g/dL (3.4-5.0) Albumin/Globulin Ratio 0.4 (1.0-1.7) Lipase 97 U/L (73-393) Glucose (Fingerstick) 103 mg/dL (70-99) 106 mg/dL (70-99) Magnesium Level 1.5 mg/dL (1.8-2.4) Troponin I Quantitative < 0.017 ng/mL (0.000-0.055) Triglycerides Level 51 mg/dL (0-150) Cholesterol Level 63 mg/dL (0-200) LDL Cholesterol, Calculated 10 mg/dL (0-100) VLDL Cholesterol, Calculated 10 mg/dL (0-40) Non-HDL Cholesterol Calculated 20 mg/dL (0-129) HDL Cholesterol 43 mg/dL (40-60) Cholesterol/HDL Ratio 1.5 Test 08/11/18 16:57 08/11/18 21:11 08/12/18 07:55 08/12/18 09:15 Glucose (Fingerstick) 100 mg/dL (70-99) 90 mg/dL (70-99) 136 mg/dL (70-99) White Blood Count 3.8 x10^3/uL (4.0-11.0) Red Blood Count 3.68 x10^6/uL (3.50-5.40) Hemoglobin 10.0 g/dL (12.0-15.5) Hematocrit 30.5 % (36.0-47.0) Mean Corpuscular Volume 83 fL (79-100) Mean Corpuscular Hemoglobin 27 pg (25-35) Mean Corpuscular Hemoglobin Concent 33 g/dL (31-37) Red Cell Distribution Width 20.7 % (11.5-14.5) Platelet Count 316 x10^3/uL (140-400) Neutrophils (%) (Auto) 53 % (31-73) Lymphocytes (%) (Auto) 26 % (24-48) Monocytes (%) (Auto) 9 % (0-9) Eosinophils (%) (Auto) 9 % (0-3) Basophils (%) (Auto) 3 % (0-3) Neutrophils # (Auto) 2.0 x10^3uL (1.8-7.7) Lymphocytes # (Auto) 1.0 x10^3/uL (1.0-4.8) Monocytes # (Auto) 0.4 x10^3/uL (0.0-1.1) Eosinophils # (Auto) 0.3 x10^3/uL (0.0-0.7) Basophils # (Auto) 0.1 x10^3/uL (0.0-0.2) Troponin I Quantitative < 0.017 ng/mL (0.000-0.055) Laboratory Tests Test 08/11/18 11:43 08/11/18 13:00 08/11/18 16:57 08/11/18 21:11 Glucose (Fingerstick) 106 mg/dL (70-99) 100 mg/dL (70-99) 90 mg/dL (70-99) Sodium Level 140 mmol/L (136-145) Potassium Level 3.3 mmol/L (3.5-5.1) Chloride Level 106 mmol/L (98-107) Carbon Dioxide Level 25 mmol/L (21-32) Anion Gap 9 (6-14) Blood Urea Nitrogen 13 mg/dL (7-20) Creatinine 0.7 mg/dL (0.6-1.0) Estimated GFR (Cockcroft-Gault) 102.3 Glucose Level 114 mg/dL (70-99) Calcium Level 8.5 mg/dL (8.5-10.1) Magnesium Level 1.5 mg/dL (1.8-2.4) Troponin I Quantitative < 0.017 ng/mL (0.000-0.055) Triglycerides Level 51 mg/dL (0-150) Cholesterol Level 63 mg/dL (0-200) LDL Cholesterol, Calculated 10 mg/dL (0-100) VLDL Cholesterol, Calculated 10 mg/dL (0-40) Non-HDL Cholesterol Calculated 20 mg/dL (0-129) HDL Cholesterol 43 mg/dL (40-60) Cholesterol/HDL Ratio 1.5 Test 08/12/18 07:55 3/1/19 09:15 Glucose (Fingerstick) 136 mg/dL (70-99) White Blood Count 3.8 x10^3/uL (4.0-11.0) Red Blood Count 3.68 x10^6/uL (3.50-5.40) Hemoglobin 10.0 g/dL (12.0-15.5) Hematocrit 30.5 % (36.0-47.0) Mean Corpuscular Volume 83 fL (79-100) Mean Corpuscular Hemoglobin 27 pg (25-35) Mean Corpuscular Hemoglobin Concent 33 g/dL (31-37) Red Cell Distribution Width 20.7 % (11.5-14.5) Platelet Count 316 x10^3/uL (140-400) Neutrophils (%) (Auto) 53 % (31-73) Lymphocytes (%) (Auto) 26 % (24-48) Monocytes (%) (Auto) 9 % (0-9) Eosinophils (%) (Auto) 9 % (0-3) Basophils (%) (Auto) 3 % (0-3) Neutrophils # (Auto) 2.0 x10^3uL (1.8-7.7) Lymphocytes # (Auto) 1.0 x10^3/uL (1.0-4.8) Monocytes # (Auto) 0.4 x10^3/uL (0.0-1.1) Eosinophils # (Auto) 0.3 x10^3/uL (0.0-0.7) Basophils # (Auto) 0.1 x10^3/uL (0.0-0.2) Troponin I Quantitative < 0.017 ng/mL (0.000-0.055) Medications Current Medications Sodium Chloride 1,000 ml @ 1,000 mls/hr 1X ONCE IV Last administered on at 16:36; Start 08/10/18 at 16:15; Stop 08/10/18 at 17:14; Status DC Fentanyl Citrate (Fentanyl 2ml Vial) 50 mcg 1X ONCE IV Last administered on at 16:37; Start 08/10/18 at 16:15; Stop 08/10/18 at 16:18; Status DC Ondansetron HCl (Zofran) 4 mg 1X ONCE IV Last administered on 08/10/18at 16:36 ; Start 08/10/18 at 16:15; Stop 08/10/18 at 16:18; Status DC Sodium Chloride (Normal Saline Flush) 3 ml PRN DAILY PRN IV AFTER MEDS AND BLOOD DRAWS; Start 08/10/18 at 17:30 Potassium Chloride 20 meq/ Dextrose/Sodium Chloride 1,010 ml @ 75 mls/hr [id number] IV Last administered on 08/10/18at 17:54; Start 08/10/18 at 18:00; Stop 08/11/18 at 04:39; Status DC Hydromorphone HCl (Dilaudid) 0.2 mg PRN Q1HR PRN IV PAIN Last administered on at 18:50; Start 08/10/18 at 17:30; Stop 08/10/18 at 21:03; Status DC Ondansetron HCl (Zofran) 4 mg PRN Q6HRS PRN IV Nausea Last administered on 08/11at 23:18; Start 08/10/18 at 17:30 Acetaminophen (Tylenol) 650 mg PRN Q6HRS PRN PO MILD PAIN / TEMP; Start at 21:00; Stop 08/11/18 at 12:34; Status DC Lorazepam (Ativan) 0.5 mg PRN Q6HRS PRN PO ANXIETY; Start 08/10/18 at 21:00 Sertraline HCl (Zoloft) 50 mg DAILY PO Last administered on 08/12/18at 09:27; Start 08/11/18 at 09:00 Zolpidem Tartrate (Ambien) 5 mg PRN QHS PRN PO INSOMNIA Last administered on at 20:35; Start 08/10/18 at 21:00 Hydromorphone HCl (Dilaudid) 2 mg PRN Q4HRS PRN PO PAIN; Start 08/10/18 at 21: 15; Stop 08/10/18 at 21:15; Status DC Info (Tpn Per Pharmacy) 1 each PRN DAILY PRN MC SEE COMMENTS Last administered on 08/11/18at 13:38; Start 08/10/18 at 21:15 Hydromorphone HCl (Dilaudid) 2 mg PRN Q4HRS PRN IV PAIN MILD TO MODERATE Last administered on 08/12/18 09:28; Start 08/10/18 at 21:00 Hydromorphone HCl (Dilaudid) 4 mg PRN Q4HRS PRN IV PAIN SEVERE; Start 08/10/18 at 21:00 Hydromorphone HCl (Dilaudid) 2 mg PRN QID PRN PO PAIN SEVERE; Start 08/10/18 at 21:15; Stop 08/11/18 at 12:27; Status DC Zinc Oxide (Zinc Oxide 20% Topical) 1 sang BID TP Last administered on 08/12/18 09:27; Start 08/11/18 at 09:00 Zinc Oxide (Zinc Oxide 20% Topical) 1 sang PRN BID PRN TP DRY SKIN; Start at 01:45 Lidocaine/ Prilocaine (Emla) 1 sang BID TP Last administered on 08/12/18 09:26; Start 08/11/18 at 02:00 Potassium Chloride/Dextrose/ Sod Cl 1,000 ml @ 75 mls/hr [id number] IV Last administered on 08/11/18at 05:52; Start 08/11/18 at 05:00; Stop 08/11/18 at 12:35 ; Status DC Nystatin (Mycostatin) 1 sang BID TP Last administered on 08/12/18 09:27; Start 08/11/18 at 13:00 Potassium Chloride/Water 50 ml @ 50 mls/hr Q1H IV Last administered on at 15:47; Start 08/11/18 at 13:00; Stop 08/11/18 at 14:59; Status DC Potassium Chloride/Dextrose/ Sod Cl 1,000 ml @ 75 mls/hr [id number] IV Last administered on 08/11/18at 12:49; Start 08/11/18 at 13:00; Stop 08/11/18 at 22:00 ; Status DC Acetaminophen (Tylenol) 650 mg PRN Q6HRS PRN PO MILD PAIN / TEMP; Start at 12:15 Sodium Chloride 200 meq/Sodium Acetate 20 meq/ Sodium Phosphate 10 mmol/ Potassium Chloride 40 meq/ Potassium Phosphate 6.8 mmol/Magnesium Sulfate 24 meq / Calcium Gluconate 10 meq/ Multivitamins 10 ml/Chromium/ Copper/Manganese/ Seleni/Zn 1 ml/ Total Parenteral Nutrition/Amino Acids/Dextro... 1,920 ml @ 80 mls/hr TPN CONT IV Last administered on 08/11/18at 22:41; Start 08/11/18 at 22: 00; Stop 08/12/18 at 21:59 Magnesium Sulfate 50 ml @ 25 mls/hr 1X ONCE IV Last administered on 08/11/18at 15:46; Start 08/11/18 at 15:30; Stop 08/11/18 at 17:29; Status DC Pantoprazole Sodium (PROTONIX VIAL for IV PUSH) 40 mg [id number] IVP Last administered on 08/12/18at 05:09; Start 08/11/18 at 18:00 Active Scripts Active Phenergan (Promethazine HCl) 25 Mg Supp.rect 25 Mg RC Q6HRS PRN Hydrochlorothiazide Tablet (Hydrochlorothiazide) 25 Mg Tablet 25 Mg PO DAILY 30 Days Zinc Oxide 56.7 Gm Oint...g. 1 Sang TP BID Ambien (Zolpidem Tartrate) 5 Mg Tablet 5 Mg PO PRN QHS PRN 30 Days [Tpn Per Pharmacy] 1 EACH Each 1 Each MC PRN DAILY PRN TPN at 85cc/hour Amlodipine Besylate 10 Mg Tablet 5 Mg PO DAILY Tylenol (Acetaminophen) 325 Mg Tablet 650 Mg PO PRN Q6HRS PRN 30 Days Sertraline Hcl 50 Mg Tablet 50 Mg PO DAILY 30 Days Lidocaine 35.44 Gm Oint...g. 1 Sang TP BID Reported Zofran Odt (Ondansetron) 4 Mg Tab.rapdis 1 Tab SL PRN Q8HRS PRN Zinc Oxide 56.7 Gm Oint...g. 56.7 Gm TP PRN BID Dilaudid (Hydromorphone Hcl) 2 Mg Tablet 1 Tab PO PRN QID PRN Lorazepam 0.5 Mg Tablet 0.5 Mg PO Q6HRS PRN Vitals/I & O Vital Sign - Last 24 Hours 08/11/18 08/11/18 08/11/18 08/11/18 11:03 11:57 15:54 16:04 Temp 97.3 98.3 97.3 98.3 Pulse 56 71 Resp 18 20 20 18 B/P (MAP) 138/66 (90) 122/71 (88) Pulse Ox 95 95 95 98 O2 Delivery Room Air Room Air Room Air Room Air 08/11/18 08/11/18 08/11/18 08/11/18 16:25 19:00 20:00 20:35 Temp 97.5 97.5 Pulse 61 Resp 20 20 B/P (MAP) 133/79 (97) Pulse Ox 98 100 O2 Delivery Room Air Room Air 08/11/18 08/12/18 08/12/18 08/12/18 23:00 00:45 03:00 05:10 Temp 97.5 97.5 97.5 97.5 Pulse 82 68 Resp 18 18 B/P (MAP) 160/94 (116) 159/86 (110) Pulse Ox 95 100 O2 Delivery Room Air Room Air Room Air Room Air 08/12/18 08/12/18 08/12/18 05:53 07:00 09:28 Temp 97.4 97.4 Pulse 68 Resp 18 18 B/P (MAP) 132/71 (91) Pulse Ox 100 100 O2 Delivery Room Air Room Air Room Air Intake and Output 08/11/18 08/11/18 08/12/18 14:59 22:59 06:59 Intake Total 60 ml 0 ml 20 ml Output Total 100 ml Balance 60 ml -100 ml 20 ml BENITA LUTZ MD Aug 12, 2018 10:18
[2018-08-12 10:23] LABS: % EOS 8 % (0-5); % LYMPHS 24 % (24-48); % MONOS 3 % (0-10)
[2018-08-12 10:24] LABS: % BASOS 2 % (0-3); % SEGS 63 % (35-66); ANISOCYTOSIS SLIGHT; PLT ESTIMATE ADEQUATE (ADEQUATE)
[2018-08-12] MEDS: ONDANSETRON PF 4 MG/2 ML VIAL. IV PRN ×2 (10:47→17:43)
[2018-08-12 11:00] VITALS: BP 140/83
--- NOTE | 2018-08-12 11:34 | PDOC ---
Subjective: Subjective: Was feeling better earlier w/ plans to advance diet, now recurrent nausea. Has had apple juice. Says when she has felt this way in the past she was septic and would like to be checked. Reports normal stool. Objective: Vital Signs: Vital Signs Date Time Temp Pulse Resp B/P (MAP) Pulse Ox O2 Delivery O2 Flow Rate FiO2 08/12/18 11:00 97.9 88 18 140/83 (102) 100 Room Air 97.9 Labs: Laboratory Tests Test 08/11/18 11:43 08/11/18 13:00 08/11/18 16:57 08/11/18 21:11 Glucose (Fingerstick) 106 mg/dL 100 mg/dL 90 mg/dL Sodium Level 140 mmol/L Potassium Level 3.3 mmol/L Chloride Level 106 mmol/L Carbon Dioxide Level 25 mmol/L Anion Gap 9 Blood Urea Nitrogen 13 mg/dL Creatinine 0.7 mg/dL Estimated GFR (Cockcroft-Gault) 102.3 Glucose Level 114 mg/dL Calcium Level 8.5 mg/dL Magnesium Level 1.5 mg/dL Troponin I Quantitative < 0.017 ng/mL Triglycerides Level 51 mg/dL Cholesterol Level 63 mg/dL LDL Cholesterol, Calculated 10 mg/dL VLDL Cholesterol, Calculated 10 mg/dL Non-HDL Cholesterol Calculated 20 mg/dL HDL Cholesterol 43 mg/dL Cholesterol/HDL Ratio 1.5 Test 08/12/18 07:55 08/12/18 09:15 Glucose (Fingerstick) 136 mg/dL White Blood Count 3.8 x10^3/uL Red Blood Count 3.68 x10^6/uL Hemoglobin 10.0 g/dL Hematocrit 30.5 % Mean Corpuscular Volume 83 fL Mean Corpuscular Hemoglobin 27 pg Mean Corpuscular Hemoglobin Concent 33 g/dL Red Cell Distribution Width 20.7 % Platelet Count 316 x10^3/uL Neutrophils (%) (Auto) 53 % Lymphocytes (%) (Auto) 26 % Monocytes (%) (Auto) 9 % Eosinophils (%) (Auto) 9 % Basophils (%) (Auto) 3 % Neutrophils # (Auto) 2.0 x10^3uL Lymphocytes # (Auto) 1.0 x10^3/uL Monocytes # (Auto) 0.4 x10^3/uL Eosinophils # (Auto) 0.3 x10^3/uL Basophils # (Auto) 0.1 x10^3/uL Segmented Neutrophils % 63 % Lymphocytes % 24 % Monocytes % 3 % Eosinophils % 8 % Basophils % 2 % Platelet Estimate Adequate Anisocytosis Slight Troponin I Quantitative < 0.017 ng/mL Imaging: KUB 08/11 Impression: 1. No significant gas dilated small bowel is identified. CXR 08/11 IMPRESSION: Stable radiographic appearance of the chest without evidence of acute cardiopulmonary process. PE: GEN: NAD LUNGS: CTAB HEART: RRR ABD: holding towels over abdomen NEURO/PSYCH: A & O 3, drowsy A/P: Chronic/recurrent n/v and abd pain, enterocutaneous fistulae/drainage Chronic anemia -- Defer her questions re: sepsis to Dr. Cisneros - d/w RN. Would be hesitant to advance diet since now c/o nausea. Continue PPI. TPN per Dr. Cisneros. MIESHA RICO Aug 12, 2018 11:34
[2018-08-12 11:35] LABS: CALCIUM 8.7 mg/dL (8.5-10.1); CREATININE 0.7 mg/dL (0.6-1.0); GFR 102.3; PHOSPHORUS 4.1 mg/dL (2.6-4.7); POTASSIUM 4.3 mmol/L (3.5-5.1)
--- NOTE | 2018-08-12 12:47 | NUR ---
SW following. Discussed with RN, no SW needs at this time. SW will continue to follow.
[2018-08-12 15:00] VITALS: BP 150/96
[2018-08-12 19:59] VITALS: BP 121/77
[2018-08-12] MEDS: ZOLPIDEM 5 MG TABLET. PO PRN (21:14)
[2018-08-12] MEDS ORDERED: TOTAL PARENTERAL NUTRITION IV SCH ×12 (22:00)
[2018-08-12] MEDS ORDERED: AMINO ACID IV SCH ×12 (22:00)
[2018-08-12] MEDS ORDERED: [UNRECOGNIZED DRUG - OTHER] IV SCH ×12 (22:00)
[2018-08-12] MEDS ORDERED: DEXTROSE 70% IV SCH ×12 (22:00)
[2018-08-12 23:59] VITALS: BP 164/101
[2018-08-13 03:59] VITALS: BP 156/102
[2018-08-13] MEDS: HYDROmorphone 2 MG/ML VIAL IV PRN ×3 (04:32→14:05)
[2018-08-13 06:16] LABS: BASO # 0.1 x10^3/uL (0.0-0.2); BASO % 1 % (0-3); EOS # 0.3 x10^3/uL (0.0-0.7); EOS % 4 % (0-3); HEMATOCRIT 31.7 % (36.0-47.0); HEMOGLOBIN 10.3 g/dL (12.0-15.5); LYMPH # 0.8 x10^3/uL (1.0-4.8); LYMPH % 13 % (24-48); MEAN CORPUSCULAR HEMOGLOBIN 26 pg (25-35); MEAN CORPUSCULAR HGB CONC 32 g/dL (31-37); MEAN CORPUSCULAR VOLUME 82 fL (79-100); MONO # 0.6 x10^3/uL (0.0-1.1); MONO % 9 % (0-9); NEUT % 74 % (31-73); PLATELET COUNT 321 x10^3/uL (140-400); RED BLOOD COUNT 3.88 x10^6/uL (3.50-5.40); RED CELL DISTRIBUTION WIDTH 20.7 % (11.5-14.5); WHITE BLOOD COUNT 6.8 x10^3/uL (4.0-11.0)
[2018-08-13 06:23] LABS: CALCIUM 9.3 mg/dL (8.5-10.1); CREATININE 0.6 mg/dL (0.6-1.0); GFR 122.2; MAGNESIUM 2.3 mg/dL (1.8-2.4); POTASSIUM 4.6 mmol/L (3.5-5.1)
[2018-08-13 07:00] VITALS: BP 163/67
[2018-08-13] MEDS ORDERED: PANTOPRAZOLE 40 MG TABLET.DR. PO SCH (07:30)
[2018-08-13] MEDS: ZINC OXIDE 20% TOPICAL OINTMENT 28GM TUBE. TP SCH (09:48)
[2018-08-13] MEDS: LIDOCAINE/PRILOCAINE TOPICAL CREAM 5GM TUBE. TP SCH (09:48)
[2018-08-13] MEDS: NYSTATIN 100,000 UNIT/GM TOPICAL CREAM 15GM TUBE. TP SCH (09:48)
[2018-08-13] MEDS: SERTRALINE 50 MG TABLET. PO SCH (09:51)
--- NOTE | 2018-08-13 10:07 | PDOC ---
PROGRESS NOTES Subjective Subjective feels better. ate food yesterday without chest pain or vomiting . bp high and will start amlodipine. lab reviewed. sodium slightly high 148. potassium and magnesium normal. Objective Objective Vital Signs Date Time Temp Pulse Resp B/P (MAP) Pulse Ox O2 Delivery O2 Flow Rate FiO2 08/13/18 09:47 12 Room Air 08/13/18 07:00 97.4 86 163/67 (99) 100 97.4 Intake and Output 08/13/18 07:00 Intake Total 420 ml Output Total 350 ml Balance 70 ml Intake Oral 420 ml Output Urine Total 350 ml Physical Exam Abdomen: Soft, Other (EC fistula) Heart: Regular rate, Normal S1, Normal S2 Extremities: No edema General: Alert HEENT: Atraumatic Lungs: Clear to auscultation Neuro: Normal speech Psych/Mental Status: Mental status NL Skin: No rashes Assessment Assessment Problems1. Intractable nausea and vomiting, onset yesterday. resolved 2. Chest pain/chest pressure. non cardiac and resolved. possible esophageal spasm. no recurrence 3. Hypokalemia resolved 4. Enterocutaneous fistula. 5. Enterovesical fistula. 6. Hypertension. 7. Severe protein-calorie malnutrition. 8. Anemia of chronic disease. hypomagnesemia resolved mild hypernatremia Medical Problems: (1) Enterocutaneous fistula Status: Acute Plan Plan of Care start amlodipine continue protonix continue prn zofran continue TPN dismiss today Comment Review of Relevant I have reviewed the following items lucila (where applicable) has been applied. Labs Laboratory Tests Test 08/11/18 11:43 08/11/18 13:00 08/11/18 16:57 08/11/18 21:11 Glucose (Fingerstick) 106 mg/dL (70-99) 100 mg/dL (70-99) 90 mg/dL (70-99) Sodium Level 140 mmol/L (136-145) Potassium Level 3.3 mmol/L (3.5-5.1) Chloride Level 106 mmol/L (98-107) Carbon Dioxide Level 25 mmol/L (21-32) Anion Gap 9 (6-14) Blood Urea Nitrogen 13 mg/dL (7-20) Creatinine 0.7 mg/dL (0.6-1.0) Estimated GFR (Cockcroft-Gault) 102.3 Glucose Level 114 mg/dL (70-99) Calcium Level 8.5 mg/dL (8.5-10.1) Magnesium Level 1.5 mg/dL (1.8-2.4) Troponin I Quantitative < 0.017 ng/mL (0.000-0.055) Triglycerides Level 51 mg/dL (0-150) Cholesterol Level 63 mg/dL (0-200) LDL Cholesterol, Calculated 10 mg/dL (0-100) VLDL Cholesterol, Calculated 10 mg/dL (0-40) Non-HDL Cholesterol Calculated 20 mg/dL (0-129) HDL Cholesterol 43 mg/dL (40-60) Cholesterol/HDL Ratio 1.5 Test 08/12/18 07:55 08/12/18 09:15 08/12/18 10:45 08/12/18 11:53 Glucose (Fingerstick) 136 mg/dL (70-99) 101 mg/dL (70-99) White Blood Count 3.8 x10^3/uL (4.0-11.0) Red Blood Count 3.68 x10^6/uL (3.50-5.40) Hemoglobin 10.0 g/dL (12.0-15.5) Hematocrit 30.5 % (36.0-47.0) Mean Corpuscular Volume 83 fL (79-100) Mean Corpuscular Hemoglobin 27 pg (25-35) Mean Corpuscular Hemoglobin Concent 33 g/dL (31-37) Red Cell Distribution Width 20.7 % (11.5-14.5) Platelet Count 316 x10^3/uL (140-400) Neutrophils (%) (Auto) 53 % (31-73) Lymphocytes (%) (Auto) 26 % (24-48) Monocytes (%) (Auto) 9 % (0-9) Eosinophils (%) (Auto) 9 % (0-3) Basophils (%) (Auto) 3 % (0-3) Neutrophils # (Auto) 2.0 x10^3uL (1.8-7.7) Lymphocytes # (Auto) 1.0 x10^3/uL (1.0-4.8) Monocytes # (Auto) 0.4 x10^3/uL (0.0-1.1) Eosinophils # (Auto) 0.3 x10^3/uL (0.0-0.7) Basophils # (Auto) 0.1 x10^3/uL (0.0-0.2) Segmented Neutrophils % 63 % (35-66) Lymphocytes % 24 % (24-48) Monocytes % 3 % (0-10) Eosinophils % 8 % (0-5) Basophils % 2 % (0-3) Platelet Estimate Adequate (ADEQUATE) Anisocytosis Slight Troponin I Quantitative < 0.017 ng/mL (0.000-0.055) Sodium Level 142 mmol/L (136-145) Potassium Level 4.3 mmol/L (3.5-5.1) Chloride Level 107 mmol/L (98-107) Carbon Dioxide Level 24 mmol/L (21-32) Anion Gap 11 (6-14) Blood Urea Nitrogen 16 mg/dL (7-20) Creatinine 0.7 mg/dL (0.6-1.0) Estimated GFR (Cockcroft-Gault) 102.3 Glucose Level 84 mg/dL (70-99) Calcium Level 8.7 mg/dL (8.5-10.1) Phosphorus Level 4.1 mg/dL (2.6-4.7) Magnesium Level 2.0 mg/dL (1.8-2.4) Triglycerides Level 36 mg/dL (0-150) Test 08/12/18 16:58 08/12/18 21:09 08/13/18 05:55 08/13/18 07:44 Glucose (Fingerstick) 119 mg/dL (70-99) 116 mg/dL (70-99) 110 mg/dL (70-99) White Blood Count 6.8 x10^3/uL (4.0-11.0) Red Blood Count 3.88 x10^6/uL (3.50-5.40) Hemoglobin 10.3 g/dL (12.0-15.5) Hematocrit 31.7 % (36.0-47.0) Mean Corpuscular Volume 82 fL (79-100) Mean Corpuscular Hemoglobin 26 pg (25-35) Mean Corpuscular Hemoglobin Concent 32 g/dL (31-37) Red Cell Distribution Width 20.7 % (11.5-14.5) Platelet Count 321 x10^3/uL (140-400) Neutrophils (%) (Auto) 74 % (31-73) Lymphocytes (%) (Auto) 13 % (24-48) Monocytes (%) (Auto) 9 % (0-9) Eosinophils (%) (Auto) 4 % (0-3) Basophils (%) (Auto) 1 % (0-3) Neutrophils # (Auto) 5.0 x10^3uL (1.8-7.7) Lymphocytes # (Auto) 0.8 x10^3/uL (1.0-4.8) Monocytes # (Auto) 0.6 x10^3/uL (0.0-1.1) Eosinophils # (Auto) 0.3 x10^3/uL (0.0-0.7) Basophils # (Auto) 0.1 x10^3/uL (0.0-0.2) Sodium Level 148 mmol/L (136-145) Potassium Level 4.6 mmol/L (3.5-5.1) Chloride Level 115 mmol/L (98-107) Carbon Dioxide Level 26 mmol/L (21-32) Anion Gap 7 (6-14) Blood Urea Nitrogen 27 mg/dL (7-20) Creatinine 0.6 mg/dL (0.6-1.0) Estimated GFR (Cockcroft-Gault) 122.2 Glucose Level 114 mg/dL (70-99) Calcium Level 9.3 mg/dL (8.5-10.1) Magnesium Level 2.3 mg/dL (1.8-2.4) Laboratory Tests Test 08/12/18 10:45 08/12/18 11:53 08/12/18 16:58 08/12/18 21:09 Sodium Level 142 mmol/L (136-145) Potassium Level 4.3 mmol/L (3.5-5.1) Chloride Level 107 mmol/L (98-107) Carbon Dioxide Level 24 mmol/L (21-32) Anion Gap 11 (6-14) Blood Urea Nitrogen 16 mg/dL (7-20) Creatinine 0.7 mg/dL (0.6-1.0) Estimated GFR (Cockcroft-Gault) 102.3 Glucose Level 84 mg/dL (70-99) Calcium Level 8.7 mg/dL (8.5-10.1) Phosphorus Level 4.1 mg/dL (2.6-4.7) Magnesium Level 2.0 mg/dL (1.8-2.4) Triglycerides Level 36 mg/dL (0-150) Glucose (Fingerstick) 101 mg/dL (70-99) 119 mg/dL (70-99) 116 mg/dL (70-99) Test 08/13/18 05:55 08/13/18 07:44 White Blood Count 6.8 x10^3/uL (4.0-11.0) Red Blood Count 3.88 x10^6/uL (3.50-5.40) Hemoglobin 10.3 g/dL (12.0-15.5) Hematocrit 31.7 % (36.0-47.0) Mean Corpuscular Volume 82 fL (79-100) Mean Corpuscular Hemoglobin 26 pg (25-35) Mean Corpuscular Hemoglobin Concent 32 g/dL (31-37) Red Cell Distribution Width 20.7 % (11.5-14.5) Platelet Count 321 x10^3/uL (140-400) Neutrophils (%) (Auto) 74 % (31-73) Lymphocytes (%) (Auto) 13 % (24-48) Monocytes (%) (Auto) 9 % (0-9) Eosinophils (%) (Auto) 4 % (0-3) Basophils (%) (Auto) 1 % (0-3) Neutrophils # (Auto) 5.0 x10^3uL (1.8-7.7) Lymphocytes # (Auto) 0.8 x10^3/uL (1.0-4.8) Monocytes # (Auto) 0.6 x10^3/uL (0.0-1.1) Eosinophils # (Auto) 0.3 x10^3/uL (0.0-0.7) Basophils # (Auto) 0.1 x10^3/uL (0.0-0.2) Sodium Level 148 mmol/L (136-145) Potassium Level 4.6 mmol/L (3.5-5.1) Chloride Level 115 mmol/L (98-107) Carbon Dioxide Level 26 mmol/L (21-32) Anion Gap 7 (6-14) Blood Urea Nitrogen 27 mg/dL (7-20) Creatinine 0.6 mg/dL (0.6-1.0) Estimated GFR (Cockcroft-Gault) 122.2 Glucose Level 114 mg/dL (70-99) Calcium Level 9.3 mg/dL (8.5-10.1) Magnesium Level 2.3 mg/dL (1.8-2.4) Glucose (Fingerstick) 110 mg/dL (70-99) Medications Current Medications Sodium Chloride 1,000 ml @ 1,000 mls/hr 1X ONCE IV Last administered on at 16:36; Start 08/10/18 at 16:15; Stop 08/10/18 at 17:14; Status DC Fentanyl Citrate (Fentanyl 2ml Vial) 50 mcg 1X ONCE IV Last administered on at 16:37; Start 08/10/18 at 16:15; Stop 08/10/18 at 16:18; Status DC Ondansetron HCl (Zofran) 4 mg 1X ONCE IV Last administered on 08/10/18at 16:36 ; Start 08/10/18 at 16:15; Stop 08/10/18 at 16:18; Status DC Sodium Chloride (Normal Saline Flush) 3 ml PRN DAILY PRN IV AFTER MEDS AND BLOOD DRAWS; Start 08/10/18 at 17:30 Potassium Chloride 20 meq/ Dextrose/Sodium Chloride 1,010 ml @ 75 mls/hr [id number] IV Last administered on 08/10/18at 17:54; Start 08/10/18 at 18:00; Stop 08/11/18 at 04:39; Status DC Hydromorphone HCl (Dilaudid) 0.2 mg PRN Q1HR PRN IV PAIN Last administered on at 18:50; Start 08/10/18 at 17:30; Stop 08/10/18 at 21:03; Status DC Ondansetron HCl (Zofran) 4 mg PRN Q6HRS PRN IV Nausea Last administered on at 17:43; Start 08/10/18 at 17:30 Acetaminophen (Tylenol) 650 mg PRN Q6HRS PRN PO MILD PAIN / TEMP; Start at 21:00; Stop 08/11/18 at 12:34; Status DC Lorazepam (Ativan) 0.5 mg PRN Q6HRS PRN PO ANXIETY; Start 08/10/18 at 21:00 Sertraline HCl (Zoloft) 50 mg DAILY PO Last administered on 08/13/18 09:51; Start 08/11/18 at 09:00 Zolpidem Tartrate (Ambien) 5 mg PRN QHS PRN PO INSOMNIA Last administered on 21:14; Start 08/10/18 at 21:00 Hydromorphone HCl (Dilaudid) 2 mg PRN Q4HRS PRN PO PAIN; Start 08/10/18 at 21: 15; Stop 08/10/18 at 21:15; Status DC Info (Tpn Per Pharmacy) 1 each PRN DAILY PRN MC SEE COMMENTS Last administered on 08/11/18 13:38; Start 08/10/18 at 21:15 Hydromorphone HCl (Dilaudid) 2 mg PRN Q4HRS PRN IV PAIN MILD TO MODERATE Last administered on 08/12/18 17:47; Start 08/10/18 at 21:00 Hydromorphone HCl (Dilaudid) 4 mg PRN Q4HRS PRN IV PAIN SEVERE Last administered on 08/13/18 09:47; Start 08/10/18 at 21:00 Hydromorphone HCl (Dilaudid) 2 mg PRN QID PRN PO PAIN SEVERE; Start 08/10/18 at 21:15; Stop 08/11/18 at 12:27; Status DC Zinc Oxide (Zinc Oxide 20% Topical) 1 sang BID TP Last administered on 08/13/18 09:48; Start 08/11/18 at 09:00 Zinc Oxide (Zinc Oxide 20% Topical) 1 sang PRN BID PRN TP DRY SKIN; Start at 01:45 Lidocaine/ Prilocaine (Emla) 1 sang BID TP Last administered on 08/13/18 09:48; Start 08/11/18 at 02:00 Potassium Chloride/Dextrose/ Sod Cl 1,000 ml @ 75 mls/hr [id number] IV Last administered on 08/11/18 05:52; Start 08/11/18 at 05:00; Stop 08/11/18 at 12:35 ; Status DC Nystatin (Mycostatin) 1 sang BID TP Last administered on 08/13/18 09:48; Start 08/11/18 at 13:00 Potassium Chloride/Water 50 ml @ 50 mls/hr Q1H IV Last administered on at 15:47; Start 08/11/18 at 13:00; Stop 08/11/18 at 14:59; Status DC Potassium Chloride/Dextrose/ Sod Cl 1,000 ml @ 75 mls/hr [id number] IV Last administered on 08/11/18at 12:49; Start 08/11/18 at 13:00; Stop 08/11/18 at 22:00 ; Status DC Acetaminophen (Tylenol) 650 mg PRN Q6HRS PRN PO MILD PAIN / TEMP; Start at 12:15 Sodium Chloride 200 meq/Sodium Acetate 20 meq/ Sodium Phosphate 10 mmol/ Potassium Chloride 40 meq/ Potassium Phosphate 6.8 mmol/Magnesium Sulfate 24 meq / Calcium Gluconate 10 meq/ Multivitamins 10 ml/Chromium/ Copper/Manganese/ Seleni/Zn 1 ml/ Total Parenteral Nutrition/Amino Acids/Dextro... 1,920 ml @ 80 mls/hr TPN CONT IV Last administered on 08/11/18at 22:41; Start 08/11/18 at 22: 00; Stop 08/12/18 at 10:15; Status DC Magnesium Sulfate 50 ml @ 25 mls/hr 1X ONCE IV Last administered on 08/11/18at 15:46; Start 08/11/18 at 15:30; Stop 08/11/18 at 17:29; Status DC Pantoprazole Sodium (PROTONIX VIAL for IV PUSH) 40 mg [id number] IVP Last administered on 08/12/18at 05:09; Start 08/11/18 at 18:00; Stop 08/12/18 at 10:15; Status DC Diphenhydramine HCl (Benadryl) 25 mg PRN Q6HRS PRN PO ITCHING Last administered on 08/12/18at 21:14; Start 08/12/18 at 10:15 Al Hydroxide/Mg Hydroxide (Mylanta Plus Xs) 30 ml PRN Q2HR PRN PO HEARTBURN / GAS; Start 08/12/18 at 10:15 Pantoprazole Sodium (Protonix) 40 mg DAILYAC PO Last administered on 08/13/18at 07:33; Start 08/13/18 at 07:30 Sodium Chloride 200 meq/Sodium Acetate 20 meq/ Sodium Phosphate 10 mmol/ Potassium Chloride 40 meq/ Potassium Phosphate 6.8 mmol/Magnesium Sulfate 24 meq / Calcium Gluconate 10 meq/ Multivitamins 10 ml/Chromium/ Copper/Manganese/ Seleni/Zn 1 ml/ Total Parenteral Nutrition/Amino Acids/Dextro... 1,920 ml @ 80 mls/hr TPN CONT IV Last administered on 08/12/18at 21:15; Start 08/12/18 at 22:00 ; Stop 08/13/18 at 09:55; Status DC Active Scripts Active Phenergan (Promethazine HCl) 25 Mg Supp.rect 25 Mg RC Q6HRS PRN Hydrochlorothiazide Tablet (Hydrochlorothiazide) 25 Mg Tablet 25 Mg PO DAILY 30 Days Zinc Oxide 56.7 Gm Oint...g. 1 Sang TP BID Ambien (Zolpidem Tartrate) 5 Mg Tablet 5 Mg PO PRN QHS PRN 30 Days [Tpn Per Pharmacy] 1 EACH Each 1 Each MC PRN DAILY PRN TPN at 85cc/hour Amlodipine Besylate 10 Mg Tablet 5 Mg PO DAILY Tylenol (Acetaminophen) 325 Mg Tablet 650 Mg PO PRN Q6HRS PRN 30 Days Sertraline Hcl 50 Mg Tablet 50 Mg PO DAILY 30 Days Lidocaine 35.44 Gm Oint...g. 1 Sang TP BID Reported Zofran Odt (Ondansetron) 4 Mg Tab.rapdis 1 Tab SL PRN Q8HRS PRN Zinc Oxide 56.7 Gm Oint...g. 56.7 Gm TP PRN BID Dilaudid (Hydromorphone Hcl) 2 Mg Tablet 1 Tab PO PRN QID PRN Lorazepam 0.5 Mg Tablet 0.5 Mg PO Q6HRS PRN Vitals/I & O Vital Sign - Last 24 Hours 08/12/18 08/12/18 08/12/18 08/12/18 11:00 11:54 15:00 17:47 Temp 97.9 97.9 97.9 97.9 Pulse 88 81 Resp 18 18 18 18 B/P (MAP) 140/83 (102) 150/96 (114) Pulse Ox 100 100 100 100 O2 Delivery Room Air Room Air Room Air Room Air 08/12/18 08/12/18 08/12/18 08/12/18 18:17 19:59 20:07 22:00 Temp 97.4 97.4 Pulse 91 Resp 18 B/P (MAP) 121/77 (92) Pulse Ox 100 99 99 O2 Delivery Room Air Room Air Room Air Room Air 08/12/18 08/13/18 08/13/18 08/13/18 23:59 03:59 04:32 05:14 Temp 97.4 97.5 97.4 97.5 Pulse 90 86 Resp 18 18 18 B/P (MAP) 164/101 (122) 156/102 (120) Pulse Ox 96 100 100 100 O2 Delivery Room Air Room Air Room Air Room Air 08/13/18 08/13/18 07:00 09:47 Temp 97.4 97.4 Pulse 86 Resp 18 12 B/P (MAP) 163/67 (99) Pulse Ox 100 O2 Delivery Room Air Room Air Intake and Output 08/12/18 08/12/18 08/13/18 15:00 23:00 07:00 Intake Total 50 ml 220 ml 150 ml Output Total 350 ml Balance 50 ml 220 ml -200 ml Nutrition Consultation Dietary Evaluation: Recommendations by RD: PPN/TPN Comments: continue TPN for nutrition and diet as tolerated discussed benefit of caloric foods w/pt Expected Outcomes/Goals: to meet > 75% est nutr needs via TPN Malnutrition Findings: Body Fat Depletion (Non Severe: Mild Depletion Weight Status: Underweight BENITA LUTZ MD Aug 13, 2018 10:07
[2018-08-13] MEDS ORDERED: ONDANSETRON ODT 4 MG TAB.RAPDIS. PO PRN (10:15)
[2018-08-13] MEDS ORDERED: NYST15CR TP (10:15)
[2018-08-13] MEDS ORDERED: Pantoprazole PO (10:15)
--- NOTE | 2018-08-13 10:19 | DISCH ---
DISCHARGE WITH HOME HEALTH DISCHARGE INFORMATION: Discharge Date: Aug 13, 2018 Final Diagnosis: Problems nausea and vomiting and atypical chest pain Medical Problems: (1) Enterocutaneous fistula Status: Acute Condition on Discharge: Stable CODE STATUS: Code Status: Full HOME HEALTH: Face to Face: I certify this patient is under my care and that I, or a nurse practitioner or physician's registered medical assistant working with me, had a face to face encounter that meets the physician face to face encounter requirements with this patient on [08/13/18]. Medical Complications: Other (enterocutaenous fistula and home TPN) POST DISCHARGE ORDERS: Activity Instructions for Disc: Activity as tolerated Weight Bearing Status after Di: As tolerated Bathing Instructions: Shower-keep dressing dry, No Tub Bath until see DIET AFTER DISCHARGE: TPN new formula at 85 cc/hour Wound/Incision Care: Reinforce dressing PRN, Routine catheter care CHECKS AFTER DISCHARGE: Checks after discharge: Check blood press - daily, Check your Temp as needed, Weigh Yourself Daily FOLLOW-UP: Follow up with: dr. lutz next week Follow Up With: cbc and cmp and magnesium and phosphouris every Wednesday per home health. DC TO [facility]: fax lab results to dr. lutz. fax [phone] TREATMENT/EQUIPMENT ORDERS: Adaptive Equipment Issued: None CERTIFICATION STATEMENT: Certification Statement: Certification Statement: Based on the above finding, I certify that this patient is confined to the home and needs intermittent retirement care, physical therapy and/or speech therapy, or continues to need occupational therapy.~ This patient is under my care, and I have initiated the establishment of the plan of care.~ This patient will be followed by myself or a community physician who will periodically review the plan of care. Home Meds Active Scripts Nystatin (NYSTATIN) 15 Gm Cream..g., 1 WANDY TP BID for yeast rash, #1 EACH Prov:BENITA LUTZ MD 08/13/18 [Pantoprazole] [address] Stuart Conflict Check, 40 MG PO DAILYAC for gerd for 30 Days Prov:BENITA LUTZ MD 08/13/18 Promethazine HCl (Phenergan) 25 Mg Supp.rect, 25 MG RC Q6HRS PRN for NAUSEA, #6 SUPP.RECT Prov:ERNESTO PETTY DO 08/10/18 Hydrochlorothiazide (HYDROCHLOROTHIAZIDE TABLET ) 25 Mg Tablet, 25 MG PO DAILY for DIURETIC for 30 Days, #30 TAB 0 Refills Prov:BENITA LUTZ MD 07/12/18 Zinc Oxide (ZINC OXIDE) 56.7 Gm Oint...g., 1 WANDY TP BID for abdominal skin excoriation, #30 GR Prov:BENITA LUTZ MD 07/11/18 Zolpidem Tartrate (AMBIEN) 5 Mg Tablet, 5 MG PO PRN QHS PRN for INSOMNIA for 30 Days, TAB Prov:BENITA LUTZ MD 06/23/18 [Tpn Per Pharmacy] 1 EACH EACH No Conflict Check, 1 EACH PRN DAILY PRN for SEE COMMENTS TPN at 85cc/hour Prov:BENITA LUTZ MD 06/23/18 Amlodipine Besylate (AMLODIPINE BESYLATE) 10 Mg Tablet, 5 MG PO DAILY for HTN, # 30 TAB Prov:BENITA LUTZ MD 06/23/18 Acetaminophen (TYLENOL) 325 Mg Tablet, 650 MG PO PRN Q6HRS PRN for MILD PAIN / TEMP for 30 Days, TAB Prov:BENITA LUTZ MD 04/22/18 Sertraline Hcl (SERTRALINE HCL) 50 Mg Tablet, 50 MG PO DAILY for 30 Days, #30 TAB Prov:BENITA LUTZ MD 01/05/17 Lidocaine (LIDOCAINE) 35.44 Gm Oint...g., 1 WANDY TP BID, #30 Prov:BENITA LUTZ MD 12/18/15 Reported Medications Ondansetron (ZOFRAN ODT) 4 Mg Tab.rapdis, 1 TAB SL PRN Q8HRS PRN for NAUSEA/ VOMITING 01/09/17 Zinc Oxide (ZINC OXIDE) 56.7 Gm Oint...g., 56.7 GM TP PRN BID 01/09/17 Hydromorphone Hcl (DILAUDID) 2 Mg Tablet, 1 TAB PO PRN QID PRN for PAIN 01/09/17 Lorazepam (LORAZEPAM) 0.5 Mg Tablet, 0.5 MG PO Q6HRS PRN for ANXIETY, TAB 08/31/16 BENITA LUTZ MD Aug 13, 2018 10:19
--- NOTE | 2018-08-13 10:24 | PDOC ---
Provider Note Provider Note discharge summary dictated # [id number] BENITA LUTZ MD Aug 13, 2018 10:24
[2018-08-13 11:00] VITALS: BP 151/71
[2018-08-13] MEDS ORDERED: amLODIPine BESYLATE 5 MG TABLET PO SCH (11:00)
--- NOTE | 2018-08-13 13:57 | DS ---
DATE OF DISCHARGE: 08/13/2018 CONSULTANTS: Dr. Ovalle and Dr. Nicholas. FINAL DIAGNOSES: 1. Intractable nausea and vomiting and also chest pain, most likely secondary to esophageal spasm and gastroesophageal reflux. 2. Atypical chest pain related to esophageal spasm. 3. Hypertension. 4. Enterocutaneous fistula. 5. Enterovesical fistula. 6. Hypokalemia. 7. Hypomagnesemia. 8. Hypernatremia. 9. Severe protein-calorie malnutrition. HOSPITAL COURSE: The patient is a 63-year-old female with a history of enterocutaneous fistula and enterovesical fistula maintained on home total parenteral nutrition, who was supposed to be seen in the office on the day of admission at the [facility], but had intractable nausea, vomiting and showed up in the [facility] Emergency Room. She denied any hematemesis or black or bloody stools. She has chronic abdominal pain related to abdominal adhesions from her previous abdominal surgeries. She did have some chest pain. She denied any odynophagia or dysphagia to solid foods. Cardiac enzymes were negative. EKG showed no acute abnormality. Echocardiogram shows preserved left ventricular ejection fraction. The patient was seen in consultation by the make up arranger and it was felt that the chest pain was noncardiac and atypical. Chest pain resolved. She was treated with Zofran. Her diet eventually was advanced as her TPN was continued. She felt fine this morning. She has hypomagnesemia and hypokalemia, which were treated both normalized. Her serum sodium was just slightly high at 148 and she receives TPN. Her blood pressure was high and she was started on amlodipine and she was also treated with Protonix for gastroesophageal reflux disease. Her nausea and vomiting resolved. She was able to tolerate solid food yesterday. She will be dismissed to home and followed by home health and have a CBC, CMP, magnesium and phosphorus done every Wednesday with results faxed to Dr. Cisneros and she will receive home health. She will continue with her TPN around 80-85 mL an hour with the same formula. I spoke with the pharmacist at [facility] yesterday who was to speak with the outpatient pharmacist to make sure her TPN is continued and ready to go today. DISCHARGE MEDICATIONS: She will be dismissed today on Dilaudid 2 mg p.o. q.i.d. p.r.n., lidocaine 5% followed by zinc oxide 20% to the excoriated areas of her abdominal wall due to her enterocutaneous fistula and that is b.i.d., lorazepam 0.5 mg every 6 hours p.r.n. for anxiety, Protonix 40 mg p.o. daily, amlodipine 5 mg p.o. daily, sertraline 50 mg p.o. daily, Ambien 5 mg at bedtime p.r.n., Tylenol 325 mg 1-2 every 4 hours p.r.n., Zofran 4 mg p.o. every 6 hours p.r.n. for nausea and vomiting and nystatin cream applied b.i.d. to a rash. PLAN: She will follow up with Dr. Cisneros in the office next week. BENITA CISNEROS MD DR: [email or web address] JOB#: [id number] / [id number]
--- NOTE | 2018-08-13 14:30 | NUR ---
Patient stated she was feeling shaky and felt similar to how she has previously felt when becoming septic. Call put in to Dr. Cisneros, with current vitals and labs, who stated that patient's vitals and labs did not shoy signs of sepsis and she could still discharge to home with daughter.
[2018-08-13 14:41] VITALS: BP 160/91
--- NOTE | 2018-08-13 16:30 | NUR ---
Discharge Note: HERMAN MONCADA Discharge instructions and discharge home medications reviewed with Patient and a copy given. All questions have been answered and understanding verbalized. The following instructions and handouts were given: Abdominal Pain, Nausea and Vomiting. Discontinued lines and drains: None. Patient Discharged Home with a PICC Line Patient discharged to Home with Self Care via Daughter's Vehicle. Call made to Dr. Cisneros to confirm prescription for amlodipine due to patient's concern that MD discontinued medication last week. Dr. Cisneros would like amlodipine to be continued at home and this buffing machine tender communicated that to patient and her daughter.
== END 2018-08-13 16:30 | disposition home or self-care (01) | DRG 391 ==
LOC: ER 15:48 → 5 SOUTH 17:20 → OBSVTOIN 08-11 12:27
PROVIDERS: ADMIT Internal Medicine; ATTEND Internal Medicine
DX: K22.4 Dyskinesia of esophagus (principal); E43 Unspecified severe protein-calorie malnutrition; N39.0 Urinary tract infection, site not specified; K63.2 Fistula of intestine; N32.1 Vesicointestinal fistula; E87.0 Hyperosmolality and hypernatremia; K21.0 Gastro-esophageal reflux disease with esophagitis; R10.9 Unspecified abdominal pain; R11.2 Nausea with vomiting, unspecified; I12.9 Hypertensive chronic kidney disease with stage 1 through stage 4 chronic kidney disease, or unspecified chronic kidney disease; F41.9 Anxiety disorder, unspecified; K57.90 Diverticulosis of intestine, part unspecified, without perforation or abscess without bleeding; F32.9 Major depressive disorder, single episode, unspecified; R07.89 Other chest pain; E87.6 Hypokalemia; G89.29 Other chronic pain; M19.90 Unspecified osteoarthritis, unspecified site; D63.8 Anemia in other chronic diseases classified elsewhere; E83.42 Hypomagnesemia; Z90.710 Acquired absence of both cervix and uterus; Z88.8 Allergy status to other drugs, medicaments and biological substances; Z88.6 Allergy status to analgesic agent; Z88.1 Allergy status to other antibiotic agents; Z91.041 Radiographic dye allergy status; Z85.41 Personal history of malignant neoplasm of cervix uteri; Z86.718 Personal history of other venous thrombosis and embolism; Z87.11 Personal history of peptic ulcer disease; Z90.49 Acquired absence of other specified parts of digestive tract
CPT/HCPCS: 36415; 71045; 74018; 80048; 80053; 80061; 82962; 83690; 83735; 84100; 84478; 84484; 85007; 85025; 93005; 93306; 96361; 96374; 96375; C9113; G0378; G0379; J0610; J1170; J2405; J3010; J3475; J3480; J7030; Q0163; 99285-25

== ENCOUNTER → 2018-08-24 | Outpatient (CLI) | payer MEDICARE ==
[2018-08-13 14:41] VITALS: BP 160/91
[~2018-08-24] MED LIST changes: +PROM25SU32 RC
--- NOTE | 2018-08-24 15:07 | RAD ---
EXAM: CT ABDOMEN/PELVIS WITHOUT CONTRAST. HISTORY: Left lower quadrant pain. TECHNIQUE: Computed tomography of the abdomen and pelvis was performed without intravenous contrast. COMPARISON: 06/30/2018. FINDINGS: Gas density focus projects along the inferior aspect of the right breast and may represent a packed wound or recent biopsy site. A catheter tip is noted at the superior cavoatrial junction. There are atherosclerotic calcifications of the coronary arteries. Lung windows through the visualized portions of the bases reveal mild atelectasis. There is diffuse wall thickening of the distal esophagus. Bone windows reveal no suspicious lesions. There are changes of internal fixation of bilateral proximal femoral fractures. The gallbladder is surgically absent. The liver, spleen, pancreas and adrenal glands are unremarkable without contrast. There is no hydronephrosis. There are no renal or ureteral calculi. Changes of bilateral pelvic lymph node dissection are noted. There are no pathologically enlarged lymph nodes. There are multiple anastomotic suture lines throughout the small bowel within the mid and lower abdomen. There is an ill-defined collection of gas and debris within the midline as seen on coronal image 10. It measures approximately 11 cm craniocaudally and 5.6 x 2.6 cm transaxially. A thin initial portion extends to the region of the dome of the bladder. It is adjacent to multiple suture lines. It is difficult to differentiate luminal from intraluminal, but this is concern for a chronic walled off leak. Extensive surrounding soft tissue density may reflect granulation tissue or scarring. Fistulization to the midline lower anterior abdominal scar may be present on axial image 41. Another small collection is suspected in the left lower quadrant measuring 1.9 cm. It contains a small amount of gas as seen on image 54. Multiple small bowel loops are inseparable from the aforementioned scarlike process anteriorly. There is no clear small bowel obstruction. There is gas distally. Left inguinal lymph nodes are mildly prominent. A nodule within the subcutaneous fat of the left lower anterior abdominal wall likely reflects chronic fat necrosis. IMPRESSION: 1. Findings concerning for a chronic intra-abdominal collection along the anterior/lower abdomen. Correlate for an enterocutaneous fistula in the region of the umbilicus. Extensive omental scarring involves multiple small bowel loops. It is difficult to differentiate luminal from intraluminal. An examination after oral contrast could further confirm these findings if there is persistent concern. 2. Another smaller collection is suspected in the left lower quadrant. None are clearly drainable. 3. Diffuse distal esophageal wall thickening. Correlate for esophagitis. 4. Gas density within the right inferior breast. Correlate for a packed wound or recent biopsy. 5. Prominent left inguinal lymph nodes are likely reactive. Correlate clinically. *One or more of the following individualized dose reduction techniques were utilized for this examination: 1. Automated exposure control. 2. Adjustment of the mA and/or kV according to patient size. 3. Use of iterative reconstruction technique. Electronically signed by: Niles Butt MD (08/24/2018 3:04 PM) [place] [id number]
== END | disposition home or self-care (01) ==
LOC: CT 13:10
PROVIDERS: ATTEND Internal Medicine
DX: R10.32 Left lower quadrant pain (principal)
CPT/HCPCS: 74176

== ENCOUNTER → 2018-10-31 | Day surgery (SDC) | payer MEDICARE ==
[~2018-10-31] MED LIST changes: +HYDROmorphone 2 MG/ML VIAL IV ONE; +IV RINGERS,LACTATED 1000ML 1,000 ML IV SCH; +LIDOCAINE 1% PF 2 ML VIAL. ID PRN; +LIDOCAINE 2% PF 5 ML VIAL. ONE; +MIDAZOLAM HCL/PF 2 MG/2 ML VIAL. IV PRN; +PROPOFOL 20 ML IV ONE; +fentaNYL PF VIAL 100 MCG/2 ML VIAL IV PRN
--- NOTE | 2018-10-31 15:03 | PDOC4 ---
PROCEDURE Procedure EGD/biopsies Indication: Wt. loss/abnormal CT (esophageal wall thickening). Meds: per anesthesia Findings: E--2-3 small ulcers proximally just distal to CP on posterior wall (pill- induced?). "Cheesy" exudate distal 1/3 suggestive of Judi, biopsied. Mild reflux changes at GEJ. G--Normal D--Normal to second portion. Michelle. well. IMP: Suspect pill-induced ulcers proximal esophagus. Possible Judi esophagitis, biopsies pending. Mild GERD. --otherwise normal exam. REC: Await biopsies. As no real symptoms from the yeast, await biopsies to confirm. F/u with me in the clinic. Resume home meds and diet. BENITA CALVILLO MD October 31, 2018 15:03
[2018-10-31 15:30] VITALS: BP 134/72
--- NOTE | 2018-11-02 17:07 | PATHOLOGY ---
[facility] Accession Number: [id number] . 01 Material submitted: . esophagus - ESOPHAGEAL BIOPSY . 01 Clinical history: . Pre-OP DX: Weight loss Post-OP DX: Judi esophagitis, small esophageal ulcers . 02 Diagnosis: Esophageal biopsies: - Acute esophagitis with focal ulceration and focal presence of yeast and pseudohyphae consistent with Judi species. (JPM:[facility] 11/02/2018) QTP/11/02/2018 . 02 Comment: Sections of the esophageal biopsy reveal segments of squamous esophageal mucosa showing intraepithelial neutrophils and showing focal ulceration with inflamed granulation tissue. A properly controlled PAS stain for yeast/fungi is obtained and reveals focal presence of yeast and pseudohyphae consistent with Judi species. The findings are supportive of the diagnosis of Judi esophagitis with focal ulceration. There are no viral inclusions identified. There is no evidence of Wallace's change, dysplasia, or malignancy. (JPM:[facility] 11/02/2018) . Special stain performed: PAS stain for yeast/fungi. . 02 Electronically signed: . Krystian Gee MD, Pathologist NPI- [id number] . 01 Gross description: . Received in formalin labeled "Miller, Pierre, esophageal BX," are 3 segments of barber soft tissue measuring 0.9 x 0.6 x 0.1 cm in aggregate dimensions and ranging from 0.2 to 0.4 cm in maximum dimension. The specimen is submitted entirely in cassette A1. (TSD; 11/01/2018) TOB/TOB . 02 Pathologist provided ICD-10: B37.81, K22.10 . 02 CPT . 892241, 304468 Specimen Comment: A courtesy copy of this report has been sent to Specimen Comment: [phone], . Specimen Comment: Report sent to / DR LUTZ Performed at: [address] [facility] [address], [place] [id number] MD Fili Greenwood MD Phone: [phone] Performed at: 02 [facility] [address] [place], [place] [id number] MD Krystian Gee MD Phone: [phone]
== END | disposition home or self-care (01) ==
LOC: SURG 14:00
PROVIDERS: ATTEND Internal Medicine Gastroenterology
DX: K21.0 Gastro-esophageal reflux disease with esophagitis (principal); K22.10 Ulcer of esophagus without bleeding; I10 Essential (primary) hypertension; F32.9 Major depressive disorder, single episode, unspecified; Z88.1 Allergy status to other antibiotic agents; Z88.8 Allergy status to other drugs, medicaments and biological substances; Z91.041 Radiographic dye allergy status; Z90.49 Acquired absence of other specified parts of digestive tract; Z90.710 Acquired absence of both cervix and uterus; Z98.890 Other specified postprocedural states
CPT/HCPCS: 43239; 88305; 88313; J1170; J2001; J2704

== ENCOUNTER 2018-12-21 20:14 | Inpatient (IN) | payer MEDICARE ==
[~2018-12-21] VITALS: Ht 162.6 cm; Wt 47.6 kg
[~2018-12-21 20:14] MED LIST changes: -HYDROmorphone 2 MG/ML VIAL IV ONE; -IV RINGERS,LACTATED 1000ML 1,000 ML IV SCH; -LIDOCAINE 1% PF 2 ML VIAL. ID PRN; -LIDOCAINE 2% PF 5 ML VIAL. ONE; -MIDAZOLAM HCL/PF 2 MG/2 ML VIAL. IV PRN; -PANT40TA3 PO; -PANT40TA5 PO; +PANT40TA77 PO; -PROPOFOL 20 ML IV ONE; -fentaNYL PF VIAL 100 MCG/2 ML VIAL IV PRN
[2018-12-21] MEDS ORDERED: VANCOMYCIN PER PHARMACY MC ONE (21:45)
[2018-12-21] MEDS ORDERED: PIPERACILLIN/TAZOBACTAM 4.5 GM in IV NORMAL SALINE 100ML 100 ML IV ONE (22:00)
[2018-12-21 22:07] LABS: BASO # 0.1 x10^3/uL (0.0-0.2); BASO % 1 % (0-3); EOS # 0.1 x10^3/uL (0.0-0.7); EOS % 2 % (0-3); HEMATOCRIT 29.7 % (36.0-47.0); HEMOGLOBIN 10.1 g/dL (12.0-15.5); LYMPH # 1.4 x10^3/uL (1.0-4.8); LYMPH % 21 % (24-48); MEAN CORPUSCULAR HEMOGLOBIN 30 pg (25-35); MEAN CORPUSCULAR HGB CONC 34 g/dL (31-37); MEAN CORPUSCULAR VOLUME 87 fL (79-100); MONO # 0.8 x10^3/uL (0.0-1.1); MONO % 13 % (0-9); NEUT # 4.2 x10^3/uL (1.8-7.7); NEUT % 63 % (31-73); PLATELET COUNT 404 x10^3/uL (140-400); RED BLOOD COUNT 3.42 x10^6/uL (3.50-5.40); RED CELL DISTRIBUTION WIDTH 16.5 % (11.5-14.5); WHITE BLOOD COUNT 6.6 x10^3/uL (4.0-11.0)
--- NOTE | 2018-12-21 22:21 | RAD ---
CT abdomen pelvis without contrast. HISTORY: Iodine allergy, abdominal abscess CT scan of the abdomen and pelvis was done without contrast. Lung bases are clear. There is no effusion. Patient's lack of abdominal fat makes evaluation difficult. There is diffuse fatty change in the liver. There is a hiatus hernia with mildly dilated distal esophagus. Spleen is normal. Adrenal glands are poorly visualized. Pancreas is poorly visualized. There is no mass or hydronephrosis in the kidneys. Stomach is mildly distended. Patient's had previous abdominal surgeries. An abscess would be difficult to exclude without oral contrast. Bladder appears unremarkable. There are mildly dilated bowel loops.. Lymph nodes in the groin on the left side are upper normal in size. There is a hip nail on each side. IMPRESSION: 1. Fatty change in the liver. 2. Mildly dilated esophagus. 3. Mild bowel dilatation, nonspecific. 4. Abscess cannot be excluded without oral contrast. 5. Limited evaluation without intravenous or oral contrast and with the lack of intra-abdominal fat. PQRS Compliance Statement: One or more of the following individualized dose reduction techniques were utilized for this examination: 1. Automated exposure control 2. Adjustment of the mA and/or kV according to patient size 3. Use of iterative reconstruction technique Electronically signed by: Ambrosio Rasmussen MD (12/21/2018 10:18 PM) [facility]
[2018-12-21] MEDS: IV NORMAL SALINE 1000ML BAG 1,000 ML IV SCH ×2 (22:24→22:27)
[2018-12-21] MEDS: HYDROmorphone 2 MG/ML VIAL IVP PRN (22:24)
[2018-12-21 22:30] LABS: ALBUMIN 1.5 g/dL (3.4-5.0); ALBUMIN/GLOBULIN RATIO 0.3 (1.0-1.7); CALCIUM 6.3 mg/dL (8.5-10.1); CREATININE 0.6 mg/dL (0.6-1.0); GFR 122.2; TOTAL BILIRUBIN 0.5 mg/dL (0.2-1.0); TOTAL PROTEIN 7.1 g/dL (6.4-8.2)
[2018-12-21 22:31] LABS: POTASSIUM 2.5 mmol/L (3.5-5.1)
--- NOTE | 2018-12-21 22:59 | RAD ---
AP chest. HISTORY: Fever AP view was taken of the chest. There is a central line on the right extending to the right atrium. Lungs are clear. Heart is normal in size. There is mild bowel distention in the abdomen. IMPRESSION: 1. No acute infiltrates. Electronically signed by: Ambrosio Rasmussen MD (12/21/2018 10:56 PM) [facility]
[2018-12-21] MEDS ORDERED: POTASSIUM CHLORIDE 20 MEQ TABLET.ER. PO ONE (23:00)
--- NOTE | 2018-12-21 23:04 | PHYS DOC ---
Past Medical History Past Medical History: Anxiety, Cancer, Diverticulitis, DVT, Hypertension, UTI, Other Additional Past Medical Histor: abd pain,septicemia,Vesicoenteric fistula,cervical CA,blood clot in [place] Past Surgical History: Hysterectomy, Other Additional Past Surgical Histo: bowel resection,ab fistula,BILAT HIP Alcohol Use: None Drug Use: None Adult General Chief Complaint Chief Complaint: FEVER HPI HPI Patient is a very unfortunate 63-year-old female with multiple medical problems who presents with a fever of 102 at home. 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 She has hard masses around the draining wound. Family states that one of these abscesses recently broke open and drain spontaneously and the smell was extraordinarily foul. Patient does have a central line for TPN that she uses. She's had multiple other medical problems that home health takes care of on a daily basis. Patient states nearly all of her nutrition is TPN[] Review of Systems Review of Systems Constitutional: Reports fever to 102[] Eyes: Denies change in visual acuity, redness, or eye pain [] HENT: Denies nasal congestion or sore throat [] Respiratory: Denies cough or shortness of breath [] Cardiovascular: No additional information not addressed in HPI [] GI: Reports abdominal pain secondary to a vesicoenteric fistula[] : Denies dysuria or hematuria [] Musculoskeletal: Denies back pain or joint pain [] Integument: Fistula drains to the surface as described in history of present illness[] Neurologic: Denies headache, focal weakness or sensory changes [] Endocrine: Denies polyuria or polydipsia [] All other systems were reviewed and found to be within normal limits, except as documented in this note. Current Medications Current Medications Current Medications Medications (Trade) Dose Ordered Sig/Alex Start Time Stop Time Status Last Admin Dose Admin Hydromorphone HCl (Dilaudid) 1 mg PRN Q2HR PRN 12/21/18 22:30 12/22/18 03:13 1 MG Piperacillin Sod/ Tazobactam Sod 4.5 gm/Sodium Chloride 100 ml @ 200 mls/hr 1X ONCE 12/21/18 22:00 12/21/18 22:29 DC 12/21/18 22:23 200 MLS/HR Potassium Chloride/Water 50 ml @ 50 mls/hr Q1H 12/21/18 23:00 12/22/18 00:59 DC 12/22/18 01:09 50 MLS/HR Potassium Chloride (Klor-Con) 40 meq 1X ONCE 12/21/18 23:00 12/21/18 23:01 DC Sodium Chloride 1,000 ml @ 1,320 mls/hr Q46M 12/21/18 21:41 12/21/18 22:40 DC 12/21/18 22:24 1,320 MLS/HR Vancomycin HCl (Vanco Per Pharmacy) 1 each 1X ONCE 12/21/18 21:45 12/21/18 21:46 UNV Allergies Allergies Allergies Coded Allergies Type Severity Reaction Last Updated Verified Iodinated Contrast- Oral and IV Dye Allergy Severe Anaphylaxis 10/31/18 Yes vancomycin Allergy Severe Swelling 10/31/18 Yes adhesive tape Allergy Intermediate Rash 10/31/18 Yes silver Allergy Intermediate Rash, Tegaderm film, can have on abd but no where else 10/31/18 Yes codeine Adverse Reaction Severe Nausea and Vomiting 10/31/18 Yes Physical Exam Physical Exam Constitutional: Frail acute on chronically ill-appearing female. [] HENT: Normocephalic, atraumatic, bilateral external ears normal, oropharynx moist, no oral exudates, nose normal. [] Eyes: PERRLA, EOMI, conjunctiva normal, no discharge. [] Neck: Normal range of motion, no tenderness, supple, no stridor. [] Cardiovascular:Heart rate regular rhythm, no murmur, she has a central line in the right upper chest [] Lungs & Thorax: Bilateral breath sounds clear to auscultation [] Abdomen: She is a chronic wound with serosanguineous drainage in her lower abdomen there are firm area surrounding this chronic wound which could possibly be abscess[] Skin: Excoriated lower abdominal wound[] Back: No tenderness, no CVA tenderness. [] Extremities: No tenderness, no cyanosis, no clubbing, ROM intact, no edema. [] Neurologic: Alert and oriented X 3, normal motor function, normal sensory fun ction, no focal deficits noted. [] Psychologic: Depressed affect[] Current Patient Data Vital Signs Vital Signs Date Time Temp Pulse Resp B/P (MAP) Pulse Ox O2 Delivery O2 Flow Rate FiO2 12/21/18 22:24 100 Room Air 12/21/18 22:21 89 120/78 (92) 12/21/18 20:41 97.9 18 97.9 Lab Values Laboratory Tests Test 12/21/18 21:55 White Blood Count 6.6 x10^3/uL (4.0-11.0) Red Blood Count 3.42 x10^6/uL (3.50-5.40) L Hemoglobin 10.1 g/dL (12.0-15.5) L Hematocrit 29.7 % (36.0-47.0) L Mean Corpuscular Volume 87 fL (79-100) Mean Corpuscular Hemoglobin 30 pg (25-35) Mean Corpuscular Hemoglobin Concent 34 g/dL (31-37) Red Cell Distribution Width 16.5 % (11.5-14.5) H Platelet Count 404 x10^3/uL (140-400) H Neutrophils (%) (Auto) 63 % (31-73) Lymphocytes (%) (Auto) 21 % (24-48) L Monocytes (%) (Auto) 13 % (0-9) H Eosinophils (%) (Auto) 2 % (0-3) Basophils (%) (Auto) 1 % (0-3) Neutrophils # (Auto) 4.2 x10^3/uL (1.8-7.7) Lymphocytes # (Auto) 1.4 x10^3/uL (1.0-4.8) Monocytes # (Auto) 0.8 x10^3/uL (0.0-1.1) Eosinophils # (Auto) 0.1 x10^3/uL (0.0-0.7) Basophils # (Auto) 0.1 x10^3/uL (0.0-0.2) Sodium Level 137 mmol/L (136-145) Potassium Level 2.5 mmol/L (3.5-5.1) *L Chloride Level 103 mmol/L (98-107) Carbon Dioxide Level 22 mmol/L (21-32) Anion Gap 12 (6-14) Blood Urea Nitrogen 8 mg/dL (7-20) Creatinine 0.6 mg/dL (0.6-1.0) Estimated GFR (Cockcroft-Gault) 122.2 BUN/Creatinine Ratio 13 (6-20) Glucose Level 85 mg/dL (70-99) Lactic Acid Level 1.3 mmol/L (0.4-2.0) Calcium Level 6.3 mg/dL (8.5-10.1) L Magnesium Level 0.5 mg/dL (1.8-2.4) L Total Bilirubin 0.5 mg/dL (0.2-1.0) Aspartate Amino Transferase (AST) 11 U/L (15-37) L Alanine Aminotransferase (ALT) 7 U/L (14-59) L Alkaline Phosphatase 89 U/L (46-116) Total Protein 7.1 g/dL (6.4-8.2) Albumin 1.5 g/dL (3.4-5.0) L Albumin/Globulin Ratio 0.3 (1.0-1.7) L Lipase 25 U/L (73-393) L Laboratory Tests 12/21/18 21:55 Laboratory Tests 12/21/18 21:55 EKG EKG [] Radiology/Procedures Radiology/Procedures [] Impressions: STATUS: REG ERORD. PHYSICIAN: ERNESTO PETTY DO REASON: abd abscess PROCEDURE: CT ABDOMEN PELVIS WO CONTRAST CT abdomen pelvis without contrast. HISTORY: Iodine allergy, abdominal abscess CT scan of the abdomen and pelvis was done without contrast. Lung bases are clear. There is no effusion. Patient's lack of abdominal fat makes evaluation difficult. There is diffuse fatty change in the liver. There is a hiatus hernia with mildly dilated distal esophagus. Spleen is normal. Adrenal glands are poorly visualized. Pancreas is poorly visualized. There is no mass or hydronephrosis in the kidneys. Stomach is mildly distended. Patient's had previous abdominal surgeries. An abscess would be difficult to exclude without oral contrast. Bladder appears unremarkable. There are mildly dilated bowel loops.. Lymph nodes in the groin on the left side are upper normal in size. There is a hip nail on each side. IMPRESSION: 1. Fatty change in the liver. 2. Mildly dilated esophagus. 3. Mild bowel dilatation, nonspecific. 4. Abscess cannot be excluded without oral contrast. 5. Limited evaluation without intravenous or oral contrast and with the lack of intra-abdominal fat. Course & Med Decision Making Course & Med Decision Making Pertinent Labs and Imaging studies reviewed. (See chart for details) [ED course: Evaluation reveals a 63-year-old female with a chronic abdominal wound secondary to a vesicoenteric fistula. Certainly there could be some abscesses around these fistulas. Patient was given Zosyn and Zyvox during her stay in the department. It was also noted that she had a potassium of 2.5. She was given IV potassium for this. I spoke with Dr. Cisneros who agreed to admit the patient to the hospital. I will check a magnesium as she has had a history of low magnesium in the past. I will replenish this if needed.] Dragon Disclaimer Dragon Disclaimer This electronic medical record was generated, in whole or in part, using a voice recognition dictation system. Departure Departure Impression: Primary Impression: Abdominal pain Additional Impressions: Fever Severe protein-calorie malnutrition Hypokalemia Disposition: ADMITTED INPATIENT Admitting Physician: Roderick Cisneros Condition: GUARDED Referrals: RODERICK CISNEROS MD (PCP) Problem Qualifiers Primary Impression: Abdominal pain Abdominal location: lower abdomen, unspecified Qualified Codes: R10.30 - Lower abdominal pain, unspecified Additional Impressions: Fever Fever type: unspecified Qualified Codes: R50.9 - Fever, unspecified ERNESTO PETTY DO Dec 21, 2018 23:04
[2018-12-21] MEDS ORDERED: fentaNYL PF VIAL 100 MCG/2 ML VIAL IV PRN (23:30)
[2018-12-21] MEDS ORDERED: MAGNESIUM SULFATE 3 GM in IV DEXTROSE 5% 100ML 100 ML IV ONE (23:45)
[2018-12-21] MEDS: POTASSIUM CHL 20MEQ PREMIX 50 ML IV SCH (23:47)
[2018-12-22] VITALS (7 sets, daily range): BP systolic 121–169; BP diastolic 70–91
[2018-12-22] MEDS: ONDANSETRON PF 4 MG/2 ML VIAL. IV PRN ×3 (00:05→18:01)
[2018-12-22] MEDS: IV NORMAL SALINE 1000ML BAG 1,000 ML IV SCH ×2 (01:08→11:37)
[2018-12-22] MEDS: POTASSIUM CHL 20MEQ PREMIX 50 ML IV SCH ×3 (01:09→20:14)
[2018-12-22] MEDS: HYDROmorphone 2 MG/ML VIAL IVP PRN ×6 (03:13→23:22)
[2018-12-22] MEDS ORDERED: ONDANSETRON PF 4 MG/2 ML VIAL. IV PRN (12:15)
[2018-12-22] MEDS ORDERED: ACETAMINOPHEN 325 MG TABLET. PO PRN (12:15)
--- NOTE | 2018-12-22 12:35 | PDOC ---
Provider Note Provider Note history and physical dictated # [id number] BENITA LUTZ MD Dec 22, 2018 12:35
[2018-12-22] MEDS: PIPERACILLIN/TAZOBACTAM 3.375 GM in IV NORMAL SALINE 50ML 50 ML IV SCH ×3 (12:52→23:17)
--- NOTE | 2018-12-22 12:58 | EKG ---
[facility] [address] [place] [address] Test Date: 2018-12-22 Test Time: 12:46:50 Pat Name: HERMAN MONCADA Department: Room: [facility] Gender: F Creative Perfumer: ALE : 1955 Requested By: BENITA LUTZ Order Number: [id number] Reading MD: Measurements Intervals [place] Rate: 56 P: 59 MN: 146 QRS: 46 QRSD: 64 T: 45 QT: 458 QTc: 445 Interpretive Statements SINUS RHYTHM QRS(T) CONTOUR ABNORMALITY CONSISTENT WITH ANTEROSEPTAL INFARCT AGE UNDETERMINED ABNORMAL ECG RI6.01 Unconfirmed report Compared to ECG 08/10/2018 15:58:18 Myocardial infarct finding now present
[2018-12-22] MEDS ORDERED: POTASSIUM CL 20MEQ D5-0.45NACL 1,000 ML IV SCH (13:00)
--- NOTE | 2018-12-22 13:04 | HP ---
ADMIT DATE: 12/22/2018 LOCATION: She is in room 668. HISTORY OF PRESENT ILLNESS: The patient is a 63-year-old -[place] female who has a history of enterocutaneous fistula and enterovesical fistula, maintained on home total parenteral nutrition, who has had a fever of over 102 degrees at home. She took a Tylenol, a visiting nurse came by it was 99 degrees. She has been having some intermittent diarrhea also for quite some time. She also had some abdominal pain. She denies any cough. She went to the [facility] Emergency Room. Temperature was normal. She had a CAT scan of the abdomen and pelvis done without IV contrast and it showed a fatty liver, mildly dilated esophagus, nonspecific mild bowel dilatation. She was started on IV Zyvox and Zosyn. She received IV fluids. Her potassium was noted to be very low, as it has been as an outpatient, 2.5 and her magnesium was also low at 0.5. The patient is receiving TPN at home with about 46 mEq of magnesium sulfate per day and receives 2 grams of magnesium sulfate IV Wednesday through Wednesday in addition to that. Her potassium chloride is somewhere around 220 mEq per day in her TPN and despite this she still has hypokalemia and hypomagnesemia. She is subsequently admitted to the hospital for further evaluation of her fever, hypokalemia and hypomagnesemia. ALLERGIES AND INTOLERANCES: INCLUDE IV IODINE, ORAL IODINE, ADHESIVE TAPE, CODEINE, SILVER, AND IV VANCOMYCIN. MEDICATIONS: Prior to admission include Dilaudid 2 mg p.o. q.i.d. p.r.n., lidocaine 5% followed by zinc oxide 20% to the excoriated areas of her abdominal wall secondary to her enterocutaneous fistula, lorazepam 0.5 mg every 6 hours p.r.n., Protonix 40 mg every day, sertraline 50 mg every day, Ambien 5 mg at bedtime p.r.n., Tylenol 325 mg 1-2 every 4 hours p.r.n., and Zofran 4 mg p.o. every 6 hours p.r.n. PAST MEDICAL HISTORY: Significant for an enterocutaneous fistula and she has had multiple surgeries that have failed to repair it. She has a history of esophagitis and gastritis in 2011 and has enterovesical fistula, peptic ulcer disease in the past, diverticulosis, depression, reflux esophagitis, recurrent sepsis secondary to a PICC line, and had 5 abdominal procedures to reverse her enterocutaneous fistula, which have failed. SOCIAL HISTORY: She does not drink alcohol nor does she smoke cigarettes. She receives home health and home TPN continuously. FAMILY HISTORY: Noncontributory. REVIEW OF SYSTEMS: GENERAL: She had the fever. CARDIOVASCULAR: No chest pain. PULMONARY: No cough. GASTROINTESTINAL: She had the diarrhea and she also vomited just moments ago. ENDOCRINE: No diabetes mellitus. SKIN: No rashes, although she has chronic excoriation of the abdominal wall from the enterocutaneous fistula. The rest of systems reviewed are negative except as stated in history of present illness. PHYSICAL EXAMINATION: VITAL SIGNS: Temperature is 98.1 degrees, apical pulse regular 86, respiratory rate 17, blood pressure 135/72, oxygen saturation 99% on room air. HEENT: Eyes: Gaze is conjugate. Mouth: Tongue is midline. NECK: There is no cervical lymphadenopathy. HEART: Reveals an S1, S2. There is no S3 or murmur. LUNGS: Clear. Central line on the site looks fine in the right anterior chest. ABDOMEN: Soft. She has got a new enterocutaneous fistula noted or at least a new opening noted in the abdominal wall. There is some chronic redness from her contents of the enterocutaneous fistula. EXTREMITIES: Lower extremities without edema. SKIN: No rashes. NEUROLOGIC: Revealed no focal weakness of the extremities or facial asymmetry. LABORATORY DATA: White count 6.6, hemoglobin 10.1 with a platelet count 404,000 with 63 polys and 21 lymphocytes. Sodium 137, potassium 2.5, chloride 103, total CO2 was 22, BUN 8, creatinine 0.6, calcium 6.3, but albumin is 1.5. Liver function tests were normal. Lipase was 25. Lactic acid level 1.3. As mentioned, magnesium is low at 0.5. I did not see an EKG. She had a CAT scan of the abdomen and pelvis, which I reviewed and chest x-ray showed no lung infiltrate. ASSESSMENT: 1. Fever. She does not have leukocytosis or lactic acidosis. Fever has since resolved as she took Tylenol yesterday. 2. Severe hypokalemia. 3. Severe hypomagnesemia. 4. Enterocutaneous fistula. 5. Diarrhea. 6. Severe protein-calorie malnutrition. 7. Enterovesical fistula. PLAN: To consult Dr. Muniz for Infectious Disease, Dr. Franklin to make sure she does not have abdominal wall abscess, and we will also consult Dr. Ovalle for the diarrhea and enterocutaneous fistula. I spoke with the pharmacist and told them not to add for potassium and magnesium in her TPN, start with 40 mEq of magnesium sulfate a day in her TPN and potassium chloride 100 mg per day and see how she does before we increase it. Certainly, she was getting higher doses of potassium at home, but I want to make sure we do not over extend herself and cause hyperkalemia. In addition, we will consult Dr. Ovalle for the diarrhea and enterocutaneous fistula. We will check a stool for Clostridium difficile toxin, wait for the blood culture results, and continue IV Zyvox and Zosyn. Continue with her home medications. Give her another dose of magnesium sulfate 2 grams IV, I think she received a total of 5 grams of magnesium sulfate IV in the Emergency Room and received 60 mEq of potassium chloride IV in the Emergency Room, and give her some IV fluids with potassium chloride and once the TPN is started we will discontinue IV fluids. BENITA LUTZ MD DR: NABILA/jd JOB#: [id number] / [id number]
[2018-12-22] MEDS ORDERED: MAGNESIUM SULFATE 2GM 50 ML IV ONE (14:00)
[2018-12-22] MEDS: TPN PER PHARMACY MC PRN (14:18)
--- NOTE | 2018-12-22 14:24 | NUR ---
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 Height: 5 feet, 4 inches Weight: 47.225942 kg Current diet: LABS: Sodium: 137 Potassium: 2.5 Chloride: 103 Calcium: 6.3 Corrected Calcium: 8.30 Magnesium: CO2: 22 SCr: 0.6 Glucose: 85 Albumin: 1.5 AST: ALT: TPN FORMULA: TPN TYPE: Central Continuous AMINO ACIDS: 90 gm DEXTROSE: 285 gm LIPIDS: 30 gm SODIUM CHLORIDE: 220 mEq SODIUM ACETATE: mEq SODIUM PHOSPHATE: 9.99 mmol POTASSIUM CHLORIDE: 100 mEq POTASSIUM ACETATE: mEq POTASSIUM PHOSPHATE: 6.81 mmol MAGNESIUM: 40 mEq CALCIUM: 14 mEq INSULIN: units MULTIPLE VITAMIN: 10 ml TRACE ELEMENTS: 1 ml(s) TPN PLAN: adjust kcl to 100 meq/bag, magso4 40 meq/bag per Dr Cisneros. R: Continue home tpn at 80 ml/hr Will monitor electrolytes, glucose, and tolerance to TPN. [facility], 12/22/18 1923
[2018-12-22] MEDS ORDERED: TPN PER PHARMACY MC PRN (14:30)
--- NOTE | 2018-12-22 14:43 | CONS ---
DATE OF CONSULTATION: 12/22/2018 REFERRING PHYSICIAN: Roderick Cisneros M.D. REASON FOR CONSULTATION: Fever. HISTORY OF PRESENT ILLNESS: A 63-year-old female with multiple medical problems, including history of vesicoenteric fistula; status post numerous surgeries; history of recurrent urinary tract infection with Escherichia coli, Enterobacter and Enterococcus; history of MRSA bacteremia with line; Judi glabrata fungemia, Staph warneri bacteremia, Klebsiella pneumoniae bacteremia, Cupriavidus pauculus bacteremia and Pseudomonas bacteremia. She was admitted through the ER, where she presented with complaints of abdominal pain with 2 hard masses around the draining wound. She had one of the abscesses which recently broke up and started draining spontaneously and the small one had just started draining. The patient has central line for TPN since last fall. The patient had been hospitalized in 10/2018 and underwent EGD and was diagnosed with Judi esophagitis, for which she was treated with antifungal medication. The patient also had E. coli UTI in 06/2018. The patient was started on Zyvox. She underwent a CT of the abdomen and pelvis, which did not show any abscess, but was done without contrast. It did show fatty liver changes, mildly dilated esophagus and mildly dilated bowel. The patient also had some nausea and vomiting earlier today. Her white count was normal at 6.6 with hemoglobin of 10.1 and platelets of 404,000. She was found to have severe hypokalemia and hypomagnesemia and she was started on supplements for the same. She underwent blood cultures, also underwent a C. diff PCR. Today, the patient states she has pain around the 2 hard masses in the abdomen. Denies being on any antibiotics prior to admission. PAST MEDICAL HISTORY: Anxiety; cancer; diverticulitis; hypertension; UTI; vesicoenteric fistula; enterocutaneous fistula; chronic TPN; chronic multiple surgeries done here, at and at [facility]; multiple line infections with MRSA, Judi glabrata, Klebseilla pneumoniae, Staph warneri, Cupriavidus pauculus, Enterobacter Enterococcus faecium, penicillin-resistant Enterococcus faecalis, Pseudomonas; multiple urinary tract infections; anemia of chronic disease; depression; Judi esophagitis, last in 10/2018; DVT; diverticulosis; peptic ulcer disease; bowel resection; hysterectomy; cervical cancer; esophageal varices; PTSD; angina and cholecystectomy. SOCIAL HISTORY: Denies smoking, ETOH or illicit drug use. Lives at home. PAST SURGICAL HISTORY: Appendectomy, cholecystectomy, tonsillectomy, hysterectomy, jejunostomy reversal, ileostomy reversal, multiple abdominal antral vesicular fistula repairs x 5 and multiple line placements. REVIEW OF SYSTEMS: Negative, except for above in the HPI. ALLERGIES: VANCOMYCIN CAUSING SWELLING, ORAL AND IV CONTRAST, ADHESIVE TAPE, CODEINE AND SILVER. FAMILY HISTORY: As per HPI. CURRENT MEDICATIONS: Zyvox. PHYSICAL EXAMINATION: VITAL SIGNS: Temperature 98.1, pulse 86, respiratory rate 17, blood pressure 135/72 and oxygen saturation 99% on room air. GENERAL: Alert, oriented, pleasant female, in no acute distress, lying comfortably in bed. HEENT: Normocephalic, atraumatic. Anicteric. No thrush. NECK: Supple. LUNGS: Clear bilaterally. HEART: S1, S2. CHEST: Power PICC in right chest, without signs of complication. ABDOMEN: Soft, nondistended. Enterocutaneous fistula with small hole with some excoriation. There are two hard areas, one of them drained yellowish purulent like material, cultures taken, tender. No fluctuance. EXTREMITIES: No edema, no cyanosis and no clubbing. MUSCULOSKELETAL: Changes of DJD. DERMATOLOGIC: Warm, dry without generalized rash, except for the above. NEUROLOGIC: Alert and oriented x 3, grossly nonfocal. PSYCHIATRIC: Cooperative, appropriate mood and affect. LABORATORY DATA: WBC 6.6, hemoglobin 10.1, hematocrit 29.7, platelets 404,000 and neutrophils 63. Sodium 137, potassium 2.5, chloride 103, bicarbonate 22, BUN 8, creatinine 0.6, glucose 85 and calcium 6.3. Magnesium 0.5. Total bilirubin 0.5, AST 11, ALT 7 and alkaline phosphatase 89. Lactate 1.3. Micro blood cultures pending at this time. C. diff PCR pending at this time. IMAGING DATA: Abdominal CT shows fatty change in the liver, mildly dilated esophagus, mild bowel dilatation, nonspecific. Abscess cannot be excluded without oral contrast, limited evaluation without intravenous or oral contrast and with the lack of intra-abdominal fat. Chest x-ray shows no acute infiltrate. IMPRESSION: 1. Fever at home, afebrile here. 2. Abdominal pain. 3. Abdominal wall abscesses. 4. History of enterocutaneous and vesicoenteric fistula, chronic with multiple surgeries, on chronic TPN. 5. History of recurrent urinary tract infections, had 9 infections, as mentioned in the history of present illness. 6. Nausea and vomiting. 7. Diarrhea. RECOMMENDATIONS: 1. Continue Zyvox. 2. We will add empiric Zosyn. 3. Consult General Surgery for possible I and D. 4. Follow up labs and cultures. 5. Continue local wound care. Thank you for giving us an opportunity to participate in this patient's care. We will follow along with you. AUGIE TATUM MD DR: LJ/jd JOB#: [id number] / [id number] ROHITH
[2018-12-22 15:45] LABS: BASO # 0.1 x10^3/uL (0.0-0.2); BASO % 1 % (0-3); EOS # 0.1 x10^3/uL (0.0-0.7); EOS % 1 % (0-3); HEMATOCRIT 29.5 % (36.0-47.0); LYMPH # 1.4 x10^3/uL (1.0-4.8); LYMPH % 23 % (24-48); MEAN CORPUSCULAR HEMOGLOBIN 30 pg (25-35); MEAN CORPUSCULAR HGB CONC 34 g/dL (31-37); MEAN CORPUSCULAR VOLUME 88 fL (79-100); MONO # 0.5 x10^3/uL (0.0-1.1); MONO % 9 % (0-9); NEUT % 66 % (31-73); PLATELET COUNT 432 x10^3/uL (140-400); RED BLOOD COUNT 3.37 x10^6/uL (3.50-5.40); RED CELL DISTRIBUTION WIDTH 16.4 % (11.5-14.5); WHITE BLOOD COUNT 6.1 x10^3/uL (4.0-11.0)
--- NOTE | 2018-12-22 15:51 | PDOC2 ---
GI CONSULT Reason For Consult: EC fistula and diarrhea HPI: HPI: Pleasant 63 y/o female who we have seen many times in the past. Admitted through ER w/ fever, diarrhea, abd pain, and fistulae drainage w/ concern for abscess. H/o complicated diverticular disease w/ enterocutaneous fistulas w/ numerous (unsuccessful) surgeries in the past (at [facility], , [facility]). Intermittent n/v, chronic abd pain, and fluctuating fistulae drainage (in past suspected related to intermittent obstruction). This time, no n/v - is getting ready to eat fruit and cottage cheese. Reports loose/watery stools daily for a few days at home. No stools today. On TPN, Dilaudid, and PPI at home. EGD pathology (Dr. Arellano) 09/2017 - ana esophagitis (negative for Wallace's). EGD (Dr. Ovalle) 10/2018: suspected pill-induced ulcers in proximal esophagus, esophageal candidiasis (confirmed w/ biopsy, treated w/ Diflucan), mild reflux, normal stomach, normal duodenum. Records indicate colonoscopy in 2011 w/ diverticulosis and previous resection. S/p cholecystectomy (does not recall stones). H/o elevated LFTs, MRCP showed "kink" in CBD. PMH: PMH: HTN, cervical cancer (w/ radium implants), UE DVT, anxiety, sepsis, UTI, esophagitis and gastritis, ?PUD, SBO, diverticulosis, CKD, hypothyroidism, fistulas as above, SBO, appendectomy, cholecystectomy, hysterectomy, bilateral hip pinning, multiple laparotomies, I&D superficial abdominal wall/skin abscess, PICC placement, G tube placement/removal, colon resection FH: Family History: No pertinent hx Social History: ALCOHOL: none Drugs: Marijuana ROS: GEN: +fever HEENT: Denies blurred vision, sore throat CV: Denies chest pain RESP: Denies shortness of air, cough GI: Per HPI : Denies hematuria, dysuria ENDO: Denies weight changes NEURO: Denies confusion, dizziness MSK: Denies weakness, joint pain/swelling SKIN: Denies jaundice, pruritus Vitals: Vitals: Vital Signs Date Time Temp Pulse Resp B/P (MAP) Pulse Ox O2 Delivery O2 Flow Rate FiO2 12/22/18 15:01 19 100 Room Air 12/22/18 11:00 98.3 60 136/83 (100) 98.3 Labs: Labs: Laboratory Tests Test 12/21/18 21:55 White Blood Count 6.6 x10^3/uL (4.0-11.0) Red Blood Count 3.42 x10^6/uL (3.50-5.40) Hemoglobin 10.1 g/dL (12.0-15.5) Hematocrit 29.7 % (36.0-47.0) Mean Corpuscular Volume 87 fL (79-100) Mean Corpuscular Hemoglobin 30 pg (25-35) Mean Corpuscular Hemoglobin Concent 34 g/dL (31-37) Red Cell Distribution Width 16.5 % (11.5-14.5) Platelet Count 404 x10^3/uL (140-400) Neutrophils (%) (Auto) 63 % (31-73) Lymphocytes (%) (Auto) 21 % (24-48) Monocytes (%) (Auto) 13 % (0-9) Eosinophils (%) (Auto) 2 % (0-3) Basophils (%) (Auto) 1 % (0-3) Neutrophils # (Auto) 4.2 x10^3/uL (1.8-7.7) Lymphocytes # (Auto) 1.4 x10^3/uL (1.0-4.8) Monocytes # (Auto) 0.8 x10^3/uL (0.0-1.1) Eosinophils # (Auto) 0.1 x10^3/uL (0.0-0.7) Basophils # (Auto) 0.1 x10^3/uL (0.0-0.2) Sodium Level 137 mmol/L (136-145) Potassium Level 2.5 mmol/L (3.5-5.1) Chloride Level 103 mmol/L (98-107) Carbon Dioxide Level 22 mmol/L (21-32) Anion Gap 12 (6-14) Blood Urea Nitrogen 8 mg/dL (7-20) Creatinine 0.6 mg/dL (0.6-1.0) Estimated GFR (Cockcroft-Gault) 122.2 BUN/Creatinine Ratio 13 (6-20) Glucose Level 85 mg/dL (70-99) Lactic Acid Level 1.3 mmol/L (0.4-2.0) Calcium Level 6.3 mg/dL (8.5-10.1) Magnesium Level 0.5 mg/dL (1.8-2.4) Total Bilirubin 0.5 mg/dL (0.2-1.0) Aspartate Amino Transf (AST/SGOT) 11 U/L (15-37) Alanine Aminotransferase (ALT/SGPT) 7 U/L (14-59) Alkaline Phosphatase 89 U/L (46-116) Total Protein 7.1 g/dL (6.4-8.2) Albumin 1.5 g/dL (3.4-5.0) Albumin/Globulin Ratio 0.3 (1.0-1.7) Lipase 25 U/L (73-393) Allergies: Coded Allergies: Iodinated Contrast- Oral and IV Dye (Verified Allergy, Severe, Anaphylaxis, 10/31/18) PT HAS BEEN PREMEDICATED BEFORE WITH NO PROBLEMS, 16-15. vancomycin (Verified Allergy, Severe, Swelling, 10/31/18) adhesive tape (Verified Allergy, Intermediate, Rash, 10/31/18) silver (Verified Allergy, Intermediate, Rash, Tegaderm film, can have on abd but no where else, 10/31/18) codeine (Verified Adverse Reaction, Severe, Nausea and Vomiting, 10/31/18) Medications: Current Medications Medications (Trade) Dose Ordered Sig/Alex Route PRN Reason Start Time Stop Time Status Last Admin Dose Admin Piperacillin Sod/ Tazobactam Sod 4.5 gm/Sodium Chloride 100 ml @ 200 mls/hr 1X ONCE IV 12/21/18 22:00 12/21/18 22:29 DC 12/21/18 22:23 Sodium Chloride 1,000 ml @ 1,320 mls/hr Q46M IV 12/21/18 21:41 12/21/18 22:40 DC 12/21/18 22:24 Hydromorphone HCl (Dilaudid) 1 mg PRN Q2HR PRN IVP PAIN 12/21/18 22:30 12/22/18 12:24 DC 12/22/18 10:03 Potassium Chloride/Water 50 ml @ 50 mls/hr Q1H IV 12/21/18 23:00 12/22/18 00:59 DC 12/22/18 01:09 Linezolid/Dextrose 300 ml @ 300 mls/hr Q12HR IV 12/22/18 09:00 12/22/18 09:07 Ondansetron HCl (Zofran) 4 mg PRN Q8HRS PRN IV NAUSEA/VOMITING 12/21/18 23:30 12/22/18 23:29 12/22/18 11:38 Sodium Chloride 1,000 ml @ 100 mls/hr Q10H IV 12/21/18 23:30 12/22/18 12:24 DC 12/22/18 11:37 Magnesium Sulfate 3 gm/Dextrose 106 ml @ 35.333 mls/ hr 1X ONCE IV 12/21/18 23:45 12/22/18 02:44 DC 12/22/18 00:05 Piperacillin Sod/ Tazobactam Sod 3.375 gm/Sodium Chloride 50 ml @ 100 mls/hr Q6HRS IV 12/22/18 12:00 12/22/18 12:52 Hydromorphone HCl (Dilaudid) 2 mg PRN Q4HRS PRN IVP MODERATE PAIN 12/22/18 12:15 12/22/18 15:01 Magnesium Sulfate 50 ml @ 25 mls/hr 1X ONCE IV 12/22/18 14:00 12/22/18 15:59 12/22/18 13:40 Potassium Chloride/Dextrose/ Sod Cl 1,000 ml @ 80 mls/hr [id number] IV 12/22/18 13:00 12/22/18 12:56 Info (Tpn Per Pharmacy) 1 each PRN DAILY PRN MC SEE COMMENTS 12/22/18 14:15 12/22/18 14:18 Imaging: Imaging: CXR IMPRESSION: 1. No acute infiltrates. CT A/P IMPRESSION: 1. Fatty change in the liver. 2. Mildly dilated esophagus. 3. Mild bowel dilatation, nonspecific. 4. Abscess cannot be excluded without oral contrast. 5. Limited evaluation without intravenous or oral contrast and with the lack of intra-abdominal fat. PE: GEN: NAD HEENT: Atraumatic, PERRL LUNGS: CTAB HEART: RRR ABD: tender to light touch, chronic fistulae EXTREMITY: No edema SKIN: No rashes, no jaundice NEURO/PSYCH: A & O 3 A/P: A/P: Fever (at home), fistulae drainage, diarrhea Chronic abd pain H/o diverticular disease w/ enterocutaneous fistulae and many surgeries H/o GERD, esophageal candidiasis - EGD 10/2018 CRC screen - UTD Chronic anemia Hypokalemia S/p cholecystectomy -- Add PPI, await stool tests, continue TPN. MIESHA RICO Dec 22, 2018 15:51
--- NOTE | 2018-12-22 15:53 | NUR ---
Assumed care on patient. She's awake, alert, oriented x 4, complained of abdominal pain 10/10, pain medicine given. The patient was placed in a comfortable position, call light within reach; we'll continue to monitor.
[2018-12-22 16:08] LABS: ALBUMIN 1.4 g/dL (3.4-5.0); ALBUMIN/GLOBULIN RATIO 0.3 (1.0-1.7); CALCIUM 6.4 mg/dL (8.5-10.1); CREATININE 0.6 mg/dL (0.6-1.0); GFR 122.2; TOTAL BILIRUBIN 0.5 mg/dL (0.2-1.0); TOTAL PROTEIN 6.7 g/dL (6.4-8.2)
[2018-12-22 16:16] LABS: POTASSIUM 2.8 mmol/L (3.5-5.1)
--- NOTE | 2018-12-22 16:27 | PDOC2 ---
JULY SUGGS [employer] 12/22/18 1627: CONSULT Date of Consult Date of Consult DATE: 12/22/18 TIME: 16:04 Reason for Consult Reason for Consult: possible abscess Referring Physician Referring Physician: ER Identification/Chief Complaint Chief Complaint abd pain Source Source: Chart review, Patient History of Present Illness Reason for Visit: Patient known from previous admissions. HX of enterocutaneous fistula (surgery by Akiko Lopez, [place]). Pt with short bowel syndrome requiring TPN, care home. She had in the last few weeks developed to small painful fluid pockets on abdomen. Reports has had some purulent drainage One area is still very tender Past Medical History Cardiovascular: HTN Pulmonary: No pertinent hx CENTRAL NERVOUS SYSTEM: Other GI: Diverticulosis, GERD, Peptic Ulcer disease, Other Heme/Onc: Anemia NOS, Cancer, Other Hepatobiliary: No pertinent hx Psych: Anxiety, Depression Musculoskeletal: Osteoarthritis Rheumatologic: No pertinent hx Infectious disease: Other Renal/: Chronic renal insuff, UTI Endocrine: Hypothyroidism Past Surgical History Past Surgical History: Appendectomy, Arthroscopy, Tonsillectomy, Hysterectomy, Colon Resection, Other Family History Family History: Family History Unknown Social History ALCOHOL: none Drugs: Marijuana Lives: Alone Current Problem List Problem List Problems Medical Problems: (1) Fever Status: Acute (2) Severe protein-calorie malnutrition Status: Acute Current Medications Current Medications Current Medications Piperacillin Sod/ Tazobactam Sod 4.5 gm/Sodium Chloride 100 ml @ 200 mls/hr 1X ONCE IV Last administered on 12/21/18at 22:23; Start 12/21/18 at 22:00; Stop 12/21/18 at 22:29; Status DC Vancomycin HCl (Vanco Per Pharmacy) 1 each 1X ONCE MC ; Start 12/21/18 at 21:45; Stop 12/21/18 at 21:46; Status UNV Sodium Chloride 1,000 ml @ 1,320 mls/hr Q46M IV Last administered on 12/21/18at 22:24; Start 12/21/18 at 21:41; Stop 12/21/18 at 22:40; Status DC Hydromorphone HCl (Dilaudid) 1 mg PRN Q2HR PRN IVP PAIN Last administered on 12/22/18at 10:03; Start 12/21/18 at 22:30; Stop 12/22/18 at 12:24; Status DC Potassium Chloride/Water 50 ml @ 50 mls/hr Q1H IV Last administered on 12/22/18at 01:09; Start 12/21/18 at 23:00; Stop 12/22/18 at 00:59; Status DC Potassium Chloride (Klor-Con) 40 meq 1X ONCE PO ; Start 12/21/18 at 23:00; Stop 12/21/18 at 23:01; Status DC Linezolid/Dextrose 300 ml @ 300 mls/hr Q12HR IV Last administered on 12/22/18at 09:07; Start 12/22/18 at 09:00 Ondansetron HCl (Zofran) 4 mg PRN Q8HRS PRN IV NAUSEA/VOMITING Last administered on 12/22/18at 11:38; Start 12/21/18 at 23:30; Stop 12/22/18 at 23:29 Fentanyl Citrate (Fentanyl 2ml Vial) 50 mcg PRN Q1HR PRN IV PAIN; Start 12/21/18 at 23:30; Stop 12/22/18 at 23:29 Sodium Chloride 1,000 ml @ 100 mls/hr Q10H IV Last administered on 12/22/18at 11:37; Start 12/21/18 at 23:30; Stop 12/22/18 at 12:24; Status DC Magnesium Sulfate 3 gm/Dextrose 106 ml @ 35.333 mls/ hr 1X ONCE IV Last administered on 12/22/18at 00:05; Start 12/21/18 at 23:45; Stop 12/22/18 at 02:44; Status DC Piperacillin Sod/ Tazobactam Sod 3.375 gm/Sodium Chloride 50 ml @ 100 mls/hr Q6HRS IV Last administered on 12/22/18at 12:52; Start 12/22/18 at 12:00 Hydromorphone HCl (Dilaudid) 2 mg PRN Q4HRS PRN IVP MODERATE PAIN Last administered on 12/22/18at 15:01; Start 12/22/18 at 12:15 Hydromorphone HCl (Dilaudid) 4 mg PRN Q4HRS PRN IV SEVERE PAIN 7-10; Start 12/22/18 at 12:15 Acetaminophen (Tylenol) 650 mg PRN Q6HRS PRN PO MILD PAIN / TEMP; Start 12/22/18 at 12:15 Ondansetron HCl (Zofran) 4 mg PRN Q6HRS PRN IV NAUSEA/VOMITING; Start 12/22/18 at 12:15 Lidocaine/ Prilocaine (Emla) 1 sang BID TP ; Start 12/22/18 at 21:00 Zinc Oxide (Zinc Oxide 20% Topical) 1 sang BID TP ; Start 12/22/18 at 21:00 Lorazepam (Ativan) 0.5 mg PRN Q6HRS PRN PO ANXIETY / AGITATION; Start 12/22/18 at 12:15 Zolpidem Tartrate (Ambien) 5 mg PRN QHS PRN PO INSOMNIA; Start 12/22/18 at 12:15 Magnesium Sulfate 50 ml @ 25 mls/hr 1X ONCE IV Last administered on 12/22/18at 13:40; Start 12/22/18 at 14:00; Stop 12/22/18 at 15:59; Status DC Potassium Chloride/Dextrose/ Sod Cl 1,000 ml @ 80 mls/hr [id number] IV Last administered on 12/22/18at 12:56; Start 12/22/18 at 13:00; Stop 12/22/18 at 22:00 Lactobacillus Rhamnosus (Culturelle) 1 cap BID PO ; Start 12/22/18 at 21:00 Sodium Chloride 220 meq/Potassium Chloride 100 meq/ Potassium Phosphate 6.81 mmol/Magnesium Sulfate 40 meq/ Calcium Gluconate 14 meq/ Multivitamins 10 ml/Chromium/ Copper/Manganese/ Seleni/Zn 1 ml/ Sodium Phosphate 9.99 mmol/Total Parenteral Nutrition/Amino Acids/Dextrose/ Fat Emuls... 1,920 ml @ 80 mls/hr TPN CONT IV ; Start 12/22/18 at 22:00; Stop 12/23/18 at 21:59 Info (Tpn Per Pharmacy) 1 each PRN DAILY PRN MC SEE COMMENTS Last administered on 12/22/18at 14:18; Start 12/22/18 at 14:15 Info (Tpn Per Pharmacy) 1 each PRN DAILY PRN MC SEE COMMENTS; Start 12/22/18 at 14:30; Status Cancel Pantoprazole Sodium (Protonix) 40 mg DAILYAC PO ; Start 12/23/18 at 07:30 Active Scripts Active Nystatin 15 Gm Cream..g. 1 Sang TP BID [Pantoprazole] 40 MG Tablet.dr 40 Mg PO DAILYAC 30 Days Zinc Oxide 56.7 Gm Oint...g. 1 Sang TP BID Ambien (Zolpidem Tartrate) 5 Mg Tablet 5 Mg PO PRN QHS PRN 30 Days [Tpn Per Pharmacy] 1 EACH Each 1 Each MC PRN DAILY PRN TPN at 85cc/hour Sertraline Hcl 50 Mg Tablet 50 Mg PO DAILY 30 Days Lidocaine 35.44 Gm Oint...g. 1 Sang TP BID Reported Zofran Odt (Ondansetron) 4 Mg Tab.rapdis 1 Tab SL PRN Q8HRS PRN Zinc Oxide 56.7 Gm Oint...g. 56.7 Gm TP PRN BID Dilaudid (Hydromorphone Hcl) 2 Mg Tablet 1 Tab PO PRN QID PRN Lorazepam 0.5 Mg Tablet 0.5 Mg PO Q6HRS PRN Allergies Allergies: Coded Allergies: Iodinated Contrast- Oral and IV Dye (Verified Allergy, Severe, Anap hylaxis, 10/31/18) PT HAS BEEN PREMEDICATED BEFORE WITH NO PROBLEMS, 11-27-. vancomycin (Verified Allergy, Severe, Swelling, 10/31/18) adhesive tape (Verified Allergy, Intermediate, Rash, 10/31/18) silver (Verified Allergy, Intermediate, Rash, Tegaderm film, can have on abd but no where else, 10/31/18) codeine (Verified Adverse Reaction, Severe, Nausea and Vomiting, 10/31/18) ROS General: YES: Chills, Other (fevers at home) PSYCHOLOGICAL ROS: No: Anxiety, Depression Eyes: No Blurry vision, No Double vision HEENT: No: Sore Throat Hematological and Lymphatic: No: Bleeding Problems, Blood Clots Respiratory: No: Cough, SOB with excertion Cardiovascular: No Chest Pain, No Palpitations Gastrointestinal: Yes Other (see hpi) Genitourinary: No Dysuria, No Retention Musculoskeletal: Yes Muscular Weakness; No Joint Pain Neurological: No Confusion, No Impaired Coord/balance Skin: Yes Other (see hpi) Physical Exam General: Alert, Oriented X3, Cooperative, No acute distress HEENT: PERRLA, Mucous membr. moist/pink Lungs: Clear to auscultation, Normal air movement Heart: Regular rate, Normal S1, Normal S2 Abdomen: Soft, Other (chronic scarred abdomen, left abdome wound with some purulent drainage, right area with fluctuance and tenderness ) Extremities: No clubbing, No cyanosis Neuro: Normal speech, Sensation intact Psych/Mental Status: Mental status NL, Mood NL MUSCULOSKELETAL: No deformity, No swelling Vitals VITALS Vital Signs Date Time Temp Pulse Resp B/P (MAP) Pulse Ox O2 Delivery O2 Flow Rate FiO2 12/22/18 15:01 19 100 Room Air 12/22/18 15:00 97.3 89 123/70 (87) 97.3 Labs Labs Laboratory Tests Test 12/21/18 21:55 12/22/18 05:19 12/22/18 15:00 White Blood Count 6.6 x10^3/uL (4.0-11.0) 6.1 x10^3/uL (4.0-11.0) Red Blood Count 3.42 x10^6/uL (3.50-5.40) 3.37 x10^6/uL (3.50-5.40) Hemoglobin 10.1 g/dL (12.0-15.5) 10.0 g/dL (12.0-15.5) Hematocrit 29.7 % (36.0-47.0) 29.5 % (36.0-47.0) Mean Corpuscular Volume 87 fL (79-100) 88 fL (79-100) Mean Corpuscular Hemoglobin 30 pg (25-35) 30 pg (25-35) Mean Corpuscular Hemoglobin Concent 34 g/dL (31-37) 34 g/dL (31-37) Red Cell Distribution Width 16.5 % (11.5-14.5) 16.4 % (11.5-14.5) Platelet Count 404 x10^3/uL (140-400) 432 x10^3/uL (140-400) Neutrophils (%) (Auto) 63 % (31-73) 66 % (31-73) Lymphocytes (%) (Auto) 21 % (24-48) 23 % (24-48) Monocytes (%) (Auto) 13 % (0-9) 9 % (0-9) Eosinophils (%) (Auto) 2 % (0-3) 1 % (0-3) Basophils (%) (Auto) 1 % (0-3) 1 % (0-3) Neutrophils # (Auto) 4.2 x10^3/uL (1.8-7.7) 4.0 x10^3/uL (1.8-7.7) Lymphocytes # (Auto) 1.4 x10^3/uL (1.0-4.8) 1.4 x10^3/uL (1.0-4.8) Monocytes # (Auto) 0.8 x10^3/uL (0.0-1.1) 0.5 x10^3/uL (0.0-1.1) Eosinophils # (Auto) 0.1 x10^3/uL (0.0-0.7) 0.1 x10^3/uL (0.0-0.7) Basophils # (Auto) 0.1 x10^3/uL (0.0-0.2) 0.1 x10^3/uL (0.0-0.2) Sodium Level 137 mmol/L (136-145) Potassium Level 2.5 mmol/L (3.5-5.1) Chloride Level 103 mmol/L (98-107) Carbon Dioxide Level 22 mmol/L (21-32) Anion Gap 12 (6-14) Blood Urea Nitrogen 8 mg/dL (7-20) Creatinine 0.6 mg/dL (0.6-1.0) Estimated GFR (Cockcroft-Gault) 122.2 BUN/Creatinine Ratio 13 (6-20) Glucose Level 85 mg/dL (70-99) Lactic Acid Level 1.3 mmol/L (0.4-2.0) Calcium Level 6.3 mg/dL (8.5-10.1) Magnesium Level 0.5 mg/dL (1.8-2.4) Total Bilirubin 0.5 mg/dL (0.2-1.0) Aspartate Amino Transf (AST/SGOT) 11 U/L (15-37) Alanine Aminotransferase (ALT/SGPT) 7 U/L (14-59) Alkaline Phosphatase 89 U/L (46-116) Total Protein 7.1 g/dL (6.4-8.2) Albumin 1.5 g/dL (3.4-5.0) Albumin/Globulin Ratio 0.3 (1.0-1.7) Lipase 25 U/L (73-393) Clostridium difficile Toxin B Gene Negative (Negative) Laboratory Tests Test 12/21/18 21:55 12/22/18 05:19 12/22/18 15:00 White Blood Count 6.6 x10^3/uL (4.0-11.0) 6.1 x10^3/uL (4.0-11.0) Red Blood Count 3.42 x10^6/uL (3.50-5.40) 3.37 x10^6/uL (3.50-5.40) Hemoglobin 10.1 g/dL (12.0-15.5) 10.0 g/dL (12.0-15.5) Hematocrit 29.7 % (36.0-47.0) 29.5 % (36.0-47.0) Mean Corpuscular Volume 87 fL (79-100) 88 fL (79-100) Mean Corpuscular Hemoglobin 30 pg (25-35) 30 pg (25-35) Mean Corpuscular Hemoglobin Concent 34 g/dL (31-37) 34 g/dL (31-37) Red Cell Distribution Width 16.5 % (11.5-14.5) 16.4 % (11.5-14.5) Platelet Count 404 x10^3/uL (140-400) 432 x10^3/uL (140-400) Neutrophils (%) (Auto) 63 % (31-73) 66 % (31-73) Lymphocytes (%) (Auto) 21 % (24-48) 23 % (24-48) Monocytes (%) (Auto) 13 % (0-9) 9 % (0-9) Eosinophils (%) (Auto) 2 % (0-3) 1 % (0-3) Basophils (%) (Auto) 1 % (0-3) 1 % (0-3) Neutrophils # (Auto) 4.2 x10^3/uL (1.8-7.7) 4.0 x10^3/uL (1.8-7.7) Lymphocytes # (Auto) 1.4 x10^3/uL (1.0-4.8) 1.4 x10^3/uL (1.0-4.8) Monocytes # (Auto) 0.8 x10^3/uL (0.0-1.1) 0.5 x10^3/uL (0.0-1.1) Eosinophils # (Auto) 0.1 x10^3/uL (0.0-0.7) 0.1 x10^3/uL (0.0-0.7) Basophils # (Auto) 0.1 x10^3/uL (0.0-0.2) 0.1 x10^3/uL (0.0-0.2) Sodium Level 137 mmol/L (136-145) Potassium Level 2.5 mmol/L (3.5-5.1) Chloride Level 103 mmol/L (98-107) Carbon Dioxide Level 22 mmol/L (21-32) Anion Gap 12 (6-14) Blood Urea Nitrogen 8 mg/dL (7-20) Creatinine 0.6 mg/dL (0.6-1.0) Estimated GFR (Cockcroft-Gault) 122.2 BUN/Creatinine Ratio 13 (6-20) Glucose Level 85 mg/dL (70-99) Lactic Acid Level 1.3 mmol/L (0.4-2.0) Calcium Level 6.3 mg/dL (8.5-10.1) Magnesium Level 0.5 mg/dL (1.8-2.4) Total Bilirubin 0.5 mg/dL (0.2-1.0) Aspartate Amino Transf (AST/SGOT) 11 U/L (15-37) Alanine Aminotransferase (ALT/SGPT) 7 U/L (14-59) Alkaline Phosphatase 89 U/L (46-116) Total Protein 7.1 g/dL (6.4-8.2) Albumin 1.5 g/dL (3.4-5.0) Albumin/Globulin Ratio 0.3 (1.0-1.7) Lipase 25 U/L (73-393) Clostridium difficile Toxin B Gene Negative (Negative) Assessment/Plan Assessment/Plan fistula, chronic ? sub q abscess will review with ANIA Murphy MD 12/23/18 1628: CONSULT Assessment/Plan Assessment/Plan pt was seen,interviewed and examined day of consult no acute surgical recs local wound care, observe JULY SUGGS [employer] Dec 22, 2018 16:27 ANIA PATTON MD Dec 23, 2018 16:28
--- NOTE | 2018-12-22 18:16 | NUR ---
Critical result of serum K 2.[address] Cisneros at 1705, new orders for potassium replacement received.
[2018-12-22] MEDS: ZINC OXIDE 20% TOPICAL OINTMENT 28GM TUBE. TP SCH (20:17)
[2018-12-22] MEDS: LIDOCAINE/PRILOCAINE TOPICAL CREAM 5GM TUBE. TP SCH (20:17)
[2018-12-22] MEDS: ZOLPIDEM 5 MG TABLET. PO PRN (21:44)
[2018-12-22] MEDS: LACTOBACILLUS RHAMNOSUS GG 1 CAPSULE. PO SCH ×2 (21:44→21:49)
[2018-12-22] MEDS ORDERED: TOTAL PARENTERAL NUTRITION IV SCH ×11 (22:00)
[2018-12-22] MEDS ORDERED: AMINO ACID IV SCH ×11 (22:00)
[2018-12-22] MEDS ORDERED: [UNRECOGNIZED DRUG - OTHER] IV SCH ×11 (22:00)
[2018-12-22] MEDS ORDERED: DEXTROSE 70% IV SCH ×11 (22:00)
[2018-12-23] VITALS (7 sets, daily range): BP systolic 127–154; BP diastolic 66–123
[2018-12-23] MEDS: ONDANSETRON PF 4 MG/2 ML VIAL. IV PRN ×3 (00:49→18:08)
[2018-12-23] MEDS: HYDROmorphone 2 MG/ML VIAL IVP PRN ×3 (03:43→12:14)
[2018-12-23] MEDS: PIPERACILLIN/TAZOBACTAM 3.375 GM in IV NORMAL SALINE 50ML 50 ML IV SCH ×3 (05:53→18:09)
[2018-12-23 07:32] LABS: BASO % 1 % (0-3); EOS # 0.1 x10^3/uL (0.0-0.7); EOS % 1 % (0-3); HEMATOCRIT 27.5 % (36.0-47.0); HEMOGLOBIN 9.2 g/dL (12.0-15.5); LYMPH % 19 % (24-48); MEAN CORPUSCULAR HEMOGLOBIN 30 pg (25-35); MEAN CORPUSCULAR HGB CONC 34 g/dL (31-37); MEAN CORPUSCULAR VOLUME 88 fL (79-100); MONO # 0.4 x10^3/uL (0.0-1.1); MONO % 8 % (0-9); NEUT # 3.7 x10^3/uL (1.8-7.7); NEUT % 70 % (31-73); PLATELET COUNT 412 x10^3/uL (140-400); RED BLOOD COUNT 3.12 x10^6/uL (3.50-5.40); WHITE BLOOD COUNT 5.2 x10^3/uL (4.0-11.0)
[2018-12-23 07:50] LABS: CREATININE 0.6 mg/dL (0.6-1.0); GFR 122.2; MAGNESIUM 2.5 mg/dL (1.8-2.4); POTASSIUM 3.7 mmol/L (3.5-5.1)
[2018-12-23] MEDS: PANTOPRAZOLE 40 MG TABLET.DR. PO SCH (07:51)
[2018-12-23] MEDS: ZINC OXIDE 20% TOPICAL OINTMENT 28GM TUBE. TP SCH ×2 (08:00→21:21)
[2018-12-23] MEDS: LIDOCAINE/PRILOCAINE TOPICAL CREAM 5GM TUBE. TP SCH ×2 (08:00→21:21)
[2018-12-23] MEDS: LACTOBACILLUS RHAMNOSUS GG 1 CAPSULE. PO SCH ×2 (08:01→20:56)
--- NOTE | 2018-12-23 08:23 | NUR ---
W following pt for anticipated dc needs. Pt is current with [facility], phone: [phone], fax: [phone] and [facility] for [facility]PN, phone: [phone], fax: [phone]. Clinicals and orders can be faxed for [facility] and [facility] when pt is ready to dc. SW will continue to follow.
[2018-12-23 09:29] LABS: FREE T4 1.37 ng/dL (0.76-1.46); THYROID STIM HORMONE (TSH) 1.939 uIU/mL (0.358-3.74)
--- NOTE | 2018-12-23 10:01 | PDOC ---
Infectious Disease Note Subjective: Subjective pt cont to have pain in the abdomen around the 2 masses and lesions cont to have nausea and vomiting no diarrhea ROS: ROS Negative except for above. Vital Signs: Vital Signs Vital Signs Date Time Temp Pulse Resp B/P (MAP) Pulse Ox O2 Delivery O2 Flow Rate FiO2 12/23/18 07:52 94.3 68 14 127/66 (86) 100 Room Air 94.3 Physical Exam: PHYSICAL EXAM GENERAL: Alert, oriented, pleasant female, in no acute distress, lying comfortably in bed. HEENT: Normocephalic, atraumatic. Anicteric. No thrush. NECK: Supple. LUNGS: Clear bilaterally. HEART: S1, S2. CHEST: Power PICC in right chest, without signs of complication. ABDOMEN: Soft, nondistended. Enterocutaneous fistula with small hole with some excoriation. There are two hard areas, one of them drained yellowish purulent like material, cultures taken, tender. No fluctuance. EXTREMITIES: No edema, no cyanosis and no clubbing. MUSCULOSKELETAL: Changes of DJD. DERMATOLOGIC: Warm, dry without generalized rash, except for the above. NEUROLOGIC: Alert and oriented x 3, grossly nonfocal. PSYCHIATRIC: Cooperative, appropriate mood and affect. Medications: Inpatient Meds: Current Medications Medications (Trade) Dose Ordered Sig/Alex Start Time Stop Time Status Last Admin Dose Admin Acetaminophen (Tylenol) 650 mg PRN Q6HRS PRN 12/22/18 12:15 Fentanyl Citrate (Fentanyl 2ml Vial) 50 mcg PRN Q1HR PRN 12/21/18 23:30 12/22/18 23:29 DC Hydromorphone HCl (Dilaudid) 4 mg PRN Q4HRS PRN 12/22/18 12:15 Info (Tpn Per Pharmacy) 1 each PRN DAILY PRN 12/22/18 14:30 Cancel Lactobacillus Rhamnosus (Culturelle) 1 cap BID 12/22/18 21:00 12/23/18 08:01 1 CAP Lidocaine/ Prilocaine (Emla) 1 nallely BID 12/22/18 21:00 12/23/18 08:00 1 NALLELY Linezolid/Dextrose 300 ml @ 300 mls/hr Q12HR 12/22/18 09:00 12/23/18 08:07 300 MLS/HR Lorazepam (Ativan) 0.5 mg PRN Q6HRS PRN 12/22/18 12:15 Magnesium Sulfate 50 ml @ 25 mls/hr 1X ONCE 12/22/18 14:00 12/22/18 15:59 DC 12/22/18 13:40 25 MLS/HR Magnesium Sulfate 3 gm/Dextrose 106 ml @ 35.333 mls/ hr 1X ONCE 12/21/18 23:45 12/22/18 02:44 DC 12/22/18 00:05 35.333 MLS/HR Ondansetron HCl (Zofran) 8 mg PRN Q6HRS PRN 12/22/18 17:30 12/23/18 08:07 8 MG Pantoprazole Sodium (Protonix) 40 mg DAILYAC 12/23/18 07:30 12/23/18 07:51 40 MG Piperacillin Sod/ Tazobactam Sod 3.375 gm/Sodium Chloride 50 ml @ 100 mls/hr Q6HRS 12/22/18 12:00 12/23/18 05:53 100 MLS/HR Piperacillin Sod/ Tazobactam Sod 4.5 gm/Sodium Chloride 100 ml @ 200 mls/hr 1X ONCE 12/21/18 22:00 12/21/18 22:29 DC 12/21/18 22:23 200 MLS/HR Potassium Chloride/Dextrose/ Sod Cl 1,000 ml @ 80 mls/hr [id number] 12/22/18 13:00 12/22/18 22:00 DC 12/22/18 12:56 80 MLS/HR Potassium Chloride/Water 50 ml @ 50 mls/hr Q1H 12/22/18 17:45 12/22/18 19:44 DC 12/22/18 20:14 50 MLS/HR Potassium Chloride (Klor-Con) 40 meq 1X ONCE 12/21/18 23:00 12/21/18 23:01 DC Sodium Chloride 220 meq/Potassium Chloride 100 meq/ Potassium Phosphate 6.81 mmol/Magnesium Sulfate 40 meq/ Calcium Gluconate 14 meq/ Multivitamins 10 ml/Chromium/ Copper/Manganese/ Seleni/Zn 1 ml/ Sodium Phosphate 9.99 mmol/Total Parenteral Nutrition/Amino Acids/Dextrose/ Fat Emuls... 1,920 ml @ 80 mls/hr TPN CONT 12/22/18 22:00 12/23/18 21:59 12/22/18 21:43 80 MLS/HR Vancomycin HCl (Vanco Per Pharmacy) 1 each 1X ONCE 12/21/18 21:45 12/21/18 21:46 UNV Zinc Oxide (Zinc Oxide 20% Topical) 1 nallely BID 12/22/18 21:00 12/23/18 08:00 1 NALLELY Zolpidem Tartrate (Ambien) 5 mg PRN QHS PRN 12/22/18 12:15 Labs: Lab Laboratory Tests Test 12/22/18 15:00 12/23/18 06:00 White Blood Count 6.1 x10^3/uL (4.0-11.0) 5.2 x10^3/uL (4.0-11.0) Red Blood Count 3.37 x10^6/uL (3.50-5.40) 3.12 x10^6/uL (3.50-5.40) Hemoglobin 10.0 g/dL (12.0-15.5) 9.2 g/dL (12.0-15.5) Hematocrit 29.5 % (36.0-47.0) 27.5 % (36.0-47.0) Mean Corpuscular Volume 88 fL (79-100) 88 fL (79-100) Mean Corpuscular Hemoglobin 30 pg (25-35) 30 pg (25-35) Mean Corpuscular Hemoglobin Concent 34 g/dL (31-37) 34 g/dL (31-37) Red Cell Distribution Width 16.4 % (11.5-14.5) 17.0 % (11.5-14.5) Platelet Count 432 x10^3/uL (140-400) 412 x10^3/uL (140-400) Neutrophils (%) (Auto) 66 % (31-73) 70 % (31-73) Lymphocytes (%) (Auto) 23 % (24-48) 19 % (24-48) Monocytes (%) (Auto) 9 % (0-9) 8 % (0-9) Eosinophils (%) (Auto) 1 % (0-3) 1 % (0-3) Basophils (%) (Auto) 1 % (0-3) 1 % (0-3) Neutrophils # (Auto) 4.0 x10^3/uL (1.8-7.7) 3.7 x10^3/uL (1.8-7.7) Lymphocytes # (Auto) 1.4 x10^3/uL (1.0-4.8) 1.0 x10^3/uL (1.0-4.8) Monocytes # (Auto) 0.5 x10^3/uL (0.0-1.1) 0.4 x10^3/uL (0.0-1.1) Eosinophils # (Auto) 0.1 x10^3/uL (0.0-0.7) 0.1 x10^3/uL (0.0-0.7) Basophils # (Auto) 0.1 x10^3/uL (0.0-0.2) 0.0 x10^3/uL (0.0-0.2) Sodium Level 139 mmol/L (136-145) 141 mmol/L (136-145) Potassium Level 2.8 mmol/L (3.5-5.1) 3.7 mmol/L (3.5-5.1) Chloride Level 106 mmol/L (98-107) 110 mmol/L (98-107) Carbon Dioxide Level 22 mmol/L (21-32) 26 mmol/L (21-32) Anion Gap 11 (6-14) 5 (6-14) Blood Urea Nitrogen 7 mg/dL (7-20) 7 mg/dL (7-20) Creatinine 0.6 mg/dL (0.6-1.0) 0.6 mg/dL (0.6-1.0) Estimated GFR (Cockcroft-Gault) 122.2 122.2 BUN/Creatinine Ratio 12 (6-20) Glucose Level 130 mg/dL (70-99) 215 mg/dL (70-99) Calcium Level 6.4 mg/dL (8.5-10.1) 7.0 mg/dL (8.5-10.1) Total Bilirubin 0.5 mg/dL (0.2-1.0) Aspartate Amino Transf (AST/SGOT) 13 U/L (15-37) Alanine Aminotransferase (ALT/SGPT) 8 U/L (14-59) Alkaline Phosphatase 81 U/L (46-116) Total Protein 6.7 g/dL (6.4-8.2) Albumin 1.4 g/dL (3.4-5.0) Albumin/Globulin Ratio 0.3 (1.0-1.7) Phosphorus Level 2.1 mg/dL (2.6-4.7) Magnesium Level 2.5 mg/dL (1.8-2.4) Thyroid Stimulating Hormone (TSH) 1.939 uIU/mL (0.358-3.74) Free Thyroxine 1.37 ng/dL (0.76-1.46) Micro abdo c/s not done per micro Objective: Assessment: 1. Fever at home, afebrile here. 2. Abdominal pain. 3. Abdominal wall abscesses. 4. History of enterocutaneous and vesicoenteric fistula, chronic with multiple surgeries, on chronic TPN. 5. History of recurrent urinary tract infections, had 9 infections, as mentioned in the history of present illness. 6. Nausea and vomiting. 7. Diarrhea. Plan: Plan of Care Continue Zyvox/ Zosyn. General Surgery following Follow up labs and cultures. Continue local wound care. GI following D/W AUGIE JAIMES MD Dec 23, 2018 10:00
--- NOTE | 2018-12-23 11:39 | PDOC ---
PROGRESS NOTES Subjective Subjective feels better. potassium and magnesium is normal. TPN resumed. afebrile Objective Objective Vital Signs Date Time Temp Pulse Resp B/P (MAP) Pulse Ox O2 Delivery O2 Flow Rate FiO2 12/23/18 11:28 93.4 91 16 141/123 (129) 100 Room Air 93.4 Intake and Output 12/23/18 06:59 Intake Total 770 ml Output Total 250 ml Balance 520 ml Intake Oral 70 ml IV Total 700 ml Emesis 250 ml # Voids 5 Physical Exam Abdomen: Soft, Other (enterocutaneous fistulas . some induratrion in localized area) Heart: Regular rate, Normal S1, Normal S2 Extremities: No edema General: Alert HEENT: Atraumatic Lungs: Clear to auscultation Neuro: Normal speech Psych/Mental Status: Mental status NL Skin: No rashes, Other (chronic redness abdominal wall due to EC fistula contents) Assessment Assessment Problems1. Fever resolved She does not have leukocytosis or lactic acidosis 2. Severe hypokalemia. resolved 3. Severe hypomagnesemia.resolved 4. Enterocutaneous fistula. 5. possible sq abdominal abscesses 6. Severe protein-calorie malnutrition. 7. Enterovesical fistula. Medical Problems: (1) Fever Status: Acute (2) Severe protein-calorie malnutrition Status: Acute Plan Plan of Care continue TPN. she is on less than half of KCL in TPN now vs what she is on at home labs tomorrow continue iv zyvox and zosyn Comment Review of Relevant I have reviewed the following items lucila (where applicable) has been applied. Labs Laboratory Tests Test 12/21/18 21:55 12/22/18 05:19 12/22/18 15:00 12/23/18 06:00 White Blood Count 6.6 x10^3/uL (4.0-11.0) 6.1 x10^3/uL (4.0-11.0) 5.2 x10^3/uL (4.0-11.0) Red Blood Count 3.42 x10^6/uL (3.50-5.40) 3.37 x10^6/uL (3.50-5.40) 3.12 x10^6/uL (3.50-5.40) Hemoglobin 10.1 g/dL (12.0-15.5) 10.0 g/dL (12.0-15.5) 9.2 g/dL (12.0-15.5) Hematocrit 29.7 % (36.0-47.0) 29.5 % (36.0-47.0) 27.5 % (36.0-47.0) Mean Corpuscular Volume 87 fL (79-100) 88 fL (79-100) 88 fL (79-100) Mean Corpuscular Hemoglobin 30 pg (25-35) 30 pg (25-35) 30 pg (25-35) Mean Corpuscular Hemoglobin Concent 34 g/dL (31-37) 34 g/dL (31-37) 34 g/dL (31-37) Red Cell Distribution Width 16.5 % (11.5-14.5) 16.4 % (11.5-14.5) 17.0 % (11.5-14.5) Platelet Count 404 x10^3/uL (140-400) 432 x10^3/uL (140-400) 412 x10^3/uL (140-400) Neutrophils (%) (Auto) 63 % (31-73) 66 % (31-73) 70 % (31-73) Lymphocytes (%) (Auto) 21 % (24-48) 23 % (24-48) 19 % (24-48) Monocytes (%) (Auto) 13 % (0-9) 9 % (0-9) 8 % (0-9) Eosinophils (%) (Auto) 2 % (0-3) 1 % (0-3) 1 % (0-3) Basophils (%) (Auto) 1 % (0-3) 1 % (0-3) 1 % (0-3) Neutrophils # (Auto) 4.2 x10^3/uL (1.8-7.7) 4.0 x10^3/uL (1.8-7.7) 3.7 x10^3/uL (1.8-7.7) Lymphocytes # (Auto) 1.4 x10^3/uL (1.0-4.8) 1.4 x10^3/uL (1.0-4.8) 1.0 x10^3/uL (1.0-4.8) Monocytes # (Auto) 0.8 x10^3/uL (0.0-1.1) 0.5 x10^3/uL (0.0-1.1) 0.4 x10^3/uL (0.0-1.1) Eosinophils # (Auto) 0.1 x10^3/uL (0.0-0.7) 0.1 x10^3/uL (0.0-0.7) 0.1 x10^3/uL (0.0-0.7) Basophils # (Auto) 0.1 x10^3/uL (0.0-0.2) 0.1 x10^3/uL (0.0-0.2) 0.0 x10^3/uL (0.0-0.2) Sodium Level 137 mmol/L (136-145) 139 mmol/L (136-145) 141 mmol/L (136-145) Potassium Level 2.5 mmol/L (3.5-5.1) 2.8 mmol/L (3.5-5.1) 3.7 mmol/L (3.5-5.1) Chloride Level 103 mmol/L (98-107) 106 mmol/L (98-107) 110 mmol/L (98-107) Carbon Dioxide Level 22 mmol/L (21-32) 22 mmol/L (21-32) 26 mmol/L (21-32) Anion Gap 12 (6-14) 11 (6-14) 5 (6-14) Blood Urea Nitrogen 8 mg/dL (7-20) 7 mg/dL (7-20) 7 mg/dL (7-20) Creatinine 0.6 mg/dL (0.6-1.0) 0.6 mg/dL (0.6-1.0) 0.6 mg/dL (0.6-1.0) Estimated GFR (Cockcroft-Gault) 122.2 122.2 122.2 BUN/Creatinine Ratio 13 (6-20) 12 (6-20) Glucose Level 85 mg/dL (70-99) 130 mg/dL (70-99) 215 mg/dL (70-99) Lactic Acid Level 1.3 mmol/L (0.4-2.0) Calcium Level 6.3 mg/dL (8.5-10.1) 6.4 mg/dL (8.5-10.1) 7.0 mg/dL (8.5-10.1) Magnesium Level 0.5 mg/dL (1.8-2.4) 2.5 mg/dL (1.8-2.4) Total Bilirubin 0.5 mg/dL (0.2-1.0) 0.5 mg/dL (0.2-1.0) Aspartate Amino Transf (AST/SGOT) 11 U/L (15-37) 13 U/L (15-37) Alanine Aminotransferase (ALT/SGPT) 7 U/L (14-59) 8 U/L (14-59) Alkaline Phosphatase 89 U/L (46-116) 81 U/L (46-116) Total Protein 7.1 g/dL (6.4-8.2) 6.7 g/dL (6.4-8.2) Albumin 1.5 g/dL (3.4-5.0) 1.4 g/dL (3.4-5.0) Albumin/Globulin Ratio 0.3 (1.0-1.7) 0.3 (1.0-1.7) Lipase 25 U/L (73-393) Clostridium difficile Toxin B Gene Negative (Negative) Phosphorus Level 2.1 mg/dL (2.6-4.7) Thyroid Stimulating Hormone (TSH) 1.939 uIU/mL (0.358-3.74) Free Thyroxine 1.37 ng/dL (0.76-1.46) Laboratory Tests Test 12/22/18 15:00 12/23/18 06:00 White Blood Count 6.1 x10^3/uL (4.0-11.0) 5.2 x10^3/uL (4.0-11.0) Red Blood Count 3.37 x10^6/uL (3.50-5.40) 3.12 x10^6/uL (3.50-5.40) Hemoglobin 10.0 g/dL (12.0-15.5) 9.2 g/dL (12.0-15.5) Hematocrit 29.5 % (36.0-47.0) 27.5 % (36.0-47.0) Mean Corpuscular Volume 88 fL (79-100) 88 fL (79-100) Mean Corpuscular Hemoglobin 30 pg (25-35) 30 pg (25-35) Mean Corpuscular Hemoglobin Concent 34 g/dL (31-37) 34 g/dL (31-37) Red Cell Distribution Width 16.4 % (11.5-14.5) 17.0 % (11.5-14.5) Platelet Count 432 x10^3/uL (140-400) 412 x10^3/uL (140-400) Neutrophils (%) (Auto) 66 % (31-73) 70 % (31-73) Lymphocytes (%) (Auto) 23 % (24-48) 19 % (24-48) Monocytes (%) (Auto) 9 % (0-9) 8 % (0-9) Eosinophils (%) (Auto) 1 % (0-3) 1 % (0-3) Basophils (%) (Auto) 1 % (0-3) 1 % (0-3) Neutrophils # (Auto) 4.0 x10^3/uL (1.8-7.7) 3.7 x10^3/uL (1.8-7.7) Lymphocytes # (Auto) 1.4 x10^3/uL (1.0-4.8) 1.0 x10^3/uL (1.0-4.8) Monocytes # (Auto) 0.5 x10^3/uL (0.0-1.1) 0.4 x10^3/uL (0.0-1.1) Eosinophils # (Auto) 0.1 x10^3/uL (0.0-0.7) 0.1 x10^3/uL (0.0-0.7) Basophils # (Auto) 0.1 x10^3/uL (0.0-0.2) 0.0 x10^3/uL (0.0-0.2) Sodium Level 139 mmol/L (136-145) 141 mmol/L (136-145) Potassium Level 2.8 mmol/L (3.5-5.1) 3.7 mmol/L (3.5-5.1) Chloride Level 106 mmol/L (98-107) 110 mmol/L (98-107) Carbon Dioxide Level 22 mmol/L (21-32) 26 mmol/L (21-32) Anion Gap 11 (6-14) 5 (6-14) Blood Urea Nitrogen 7 mg/dL (7-20) 7 mg/dL (7-20) Creatinine 0.6 mg/dL (0.6-1.0) 0.6 mg/dL (0.6-1.0) Estimated GFR (Cockcroft-Gault) 122.2 122.2 BUN/Creatinine Ratio 12 (6-20) Glucose Level 130 mg/dL (70-99) 215 mg/dL (70-99) Calcium Level 6.4 mg/dL (8.5-10.1) 7.0 mg/dL (8.5-10.1) Total Bilirubin 0.5 mg/dL (0.2-1.0) Aspartate Amino Transf (AST/SGOT) 13 U/L (15-37) Alanine Aminotransferase (ALT/SGPT) 8 U/L (14-59) Alkaline Phosphatase 81 U/L (46-116) Total Protein 6.7 g/dL (6.4-8.2) Albumin 1.4 g/dL (3.4-5.0) Albumin/Globulin Ratio 0.3 (1.0-1.7) Phosphorus Level 2.1 mg/dL (2.6-4.7) Magnesium Level 2.5 mg/dL (1.8-2.4) Thyroid Stimulating Hormone (TSH) 1.939 uIU/mL (0.358-3.74) Free Thyroxine 1.37 ng/dL (0.76-1.46) Microbiology 12/21/18 Blood Culture - Preliminary, Resulted NO GROWTH AFTER 1 DAY Medications Current Medications Piperacillin Sod/ Tazobactam Sod 4.5 gm/Sodium Chloride 100 ml @ 200 mls/hr 1X ONCE IV Last administered on 12/21/18at 22:23; Start 12/21/18 at 22:00; Stop 12/21/18 at 22:29; Status DC Vancomycin HCl (Vanco Per Pharmacy) 1 each 1X ONCE MC ; Start 12/21/18 at 21:45; Stop 12/21/18 at 21:46; Status UNV Sodium Chloride 1,000 ml @ 1,320 mls/hr Q46M IV Last administered on 12/21/18at 22:24; Start 12/21/18 at 21:41; Stop 12/21/18 at 22:40; Status DC Hydromorphone HCl (Dilaudid) 1 mg PRN Q2HR PRN IVP PAIN Last administered on 12/22/18at 10:03; Start 12/21/18 at 22:30; Stop 12/22/18 at 12:24; Status DC Potassium Chloride/Water 50 ml @ 50 mls/hr Q1H IV Last administered on 12/22/18at 01:09; Start 12/21/18 at 23:00; Stop 12/22/18 at 00:59; Status DC Potassium Chloride (Klor-Con) 40 meq 1X ONCE PO ; Start 12/21/18 at 23:00; Stop 12/21/18 at 23:01; Status DC Linezolid/Dextrose 300 ml @ 300 mls/hr Q12HR IV Last administered on 12/23/18at 08:07; Start 12/22/18 at 09:00 Ondansetron HCl (Zofran) 4 mg PRN Q8HRS PRN IV NAUSEA/VOMITING Last administered on 12/22/18at 11:38; Start 12/21/18 at 23:30; Stop 12/22/18 at 23:29; Status DC Fentanyl Citrate (Fentanyl 2ml Vial) 50 mcg PRN Q1HR PRN IV PAIN; Start 12/21/18 at 23:30; Stop 12/22/18 at 23:29; Status DC Sodium Chloride 1,000 ml @ 100 mls/hr Q10H IV Last administered on 12/22/18at 11:37; Start 12/21/18 at 23:30; Stop 12/22/18 at 12:24; Status DC Magnesium Sulfate 3 gm/Dextrose 106 ml @ 35.333 mls/ hr 1X ONCE IV Last administered on 12/22/18at 00:05; Start 12/21/18 at 23:45; Stop 12/22/18 at 02:44; Status DC Piperacillin Sod/ Tazobactam Sod 3.375 gm/Sodium Chloride 50 ml @ 100 mls/hr Q6HRS IV Last administered on 12/23/18at 05:53; Start 12/22/18 at 12:00 Hydromorphone HCl (Dilaudid) 2 mg PRN Q4HRS PRN IVP MODERATE PAIN Last administered on 12/23/18at 07:51; Start 12/22/18 at 12:15 Hydromorphone HCl (Dilaudid) 4 mg PRN Q4HRS PRN IV SEVERE PAIN 7-10; Start 12/22/18 at 12:15 Acetaminophen (Tylenol) 650 mg PRN Q6HRS PRN PO MILD PAIN / TEMP; Start 12/22/18 at 12:15 Ondansetron HCl (Zofran) 4 mg PRN Q6HRS PRN IV NAUSEA/VOMITING; Start 12/22/18 at 12:15 Lidocaine/ Prilocaine (Emla) 1 sang BID TP Last administered on 12/23/18at 08:00; Start 12/22/18 at 21:00 Zinc Oxide (Zinc Oxide 20% Topical) 1 sang BID TP Last administered on 12/23/18at 08:00; Start 12/22/18 at 21:00 Lorazepam (Ativan) 0.5 mg PRN Q6HRS PRN PO ANXIETY / AGITATION; Start 12/22/18 at 12:15 Zolpidem Tartrate (Ambien) 5 mg PRN QHS PRN PO INSOMNIA; Start 12/22/18 at 12:1 5 Magnesium Sulfate 50 ml @ 25 mls/hr 1X ONCE IV Last administered on 12/22/18at 13:40; Start 12/22/18 at 14:00; Stop 12/22/18 at 15:59; Status DC Potassium Chloride/Dextrose/ Sod Cl 1,000 ml @ 80 mls/hr [id number] IV Last administered on 12/22/18at 12:56; Start 12/22/18 at 13:00; Stop 12/22/18 at 22:00; Status DC Lactobacillus Rhamnosus (Culturelle) 1 cap BID PO Last administered on 12/23/18at 08:01; Start 12/22/18 at 21:00 Sodium Chloride 220 meq/Potassium Chloride 100 meq/ Potassium Phosphate 6.81 mmol/Magnesium Sulfate 40 meq/ Calcium Gluconate 14 meq/ Multivitamins 10 ml/Chromium/ Copper/Manganese/ Seleni/Zn 1 ml/ Sodium Phosphate 9.99 mmol/Total Parenteral Nutrition/Amino Acids/Dextrose/ Fat Emuls... 1,920 ml @ 80 mls/hr TPN CONT IV Last administered on 12/22/18at 21:43; Start 12/22/18 at 22:00; Stop 12/23/18 at 21:59 Info (Tpn Per Pharmacy) 1 each PRN DAILY PRN MC SEE COMMENTS Last administered on 12/22/18at 14:18; Start 12/22/18 at 14:15 Info (Tpn Per Pharmacy) 1 each PRN DAILY PRN MC SEE COMMENTS; Start 12/22/18 at 14:30; Status Cancel Pantoprazole Sodium (Protonix) 40 mg DAILYAC PO Last administered on 12/23/18at 07:51; Start 12/23/18 at 07:30 Ondansetron HCl (Zofran) 8 mg PRN Q6HRS PRN IV NAUSEA/VOMITING Last administered on 12/23/18at 08:07; Start 12/22/18 at 17:30 Potassium Chloride/Water 50 ml @ 50 mls/hr Q1H IV Last administered on 12/22/18at 20:14; Start 12/22/18 at 17:45; Stop 12/22/18 at 19:44; Status DC Active Scripts Active Nystatin 15 Gm Cream..g. 1 Sang TP BID [Pantoprazole] 40 MG Tablet.dr 40 Mg PO DAILYAC 30 Days Zinc Oxide 56.7 Gm Oint...g. 1 Sang TP BID Ambien (Zolpidem Tartrate) 5 Mg Tablet 5 Mg PO PRN QHS PRN 30 Days [Tpn Per Pharmacy] 1 EACH Each 1 Each MC PRN DAILY PRN TPN at 85cc/hour Sertraline Hcl 50 Mg Tablet 50 Mg PO DAILY 30 Days Lidocaine 35.44 Gm Oint...g. 1 Sang TP BID Reported Zofran Odt (Ondansetron) 4 Mg Tab.rapdis 1 Tab SL PRN Q8HRS PRN Zinc Oxide 56.7 Gm Oint...g. 56.7 Gm TP PRN BID Dilaudid (Hydromorphone Hcl) 2 Mg Tablet 1 Tab PO PRN QID PRN Lorazepam 0.5 Mg Tablet 0.5 Mg PO Q6HRS PRN Vitals/I & O Vital Sign - Last 24 Hours 12/22/18 12/22/18 12/22/18 12/22/18 15:00 15:01 15:35 19:02 Temp 97.3 97.3 Pulse 89 Resp 17 18 19 B/P (MAP) 123/70 (87) Pulse Ox 100 100 100 100 O2 Delivery Room Air Room Air Room Air Room Air 12/22/18 12/22/18 12/22/18 12/22/18 19:49 20:15 23:00 23:10 Temp 93.8 93.8 Pulse 65 64 Resp 16 16 B/P (MAP) 169/70 (103) 149/80 (103) Pulse Ox 100 100 O2 Delivery Room Air Room Air Room Air 12/23/18 12/23/18 12/23/18 12/23/18 03:49 07:51 07:52 08:00 Temp 94.4 94.3 94.4 94.3 Pulse 70 68 Resp 16 19 14 B/P (MAP) 146/86 (106) 127/66 (86) Pulse Ox 100 100 100 O2 Delivery Room Air Room Air Room Air Room Air 12/23/18 11:28 Temp 93.4 93.4 Pulse 91 Resp 16 B/P (MAP) 141/123 (129) Pulse Ox 100 O2 Delivery Room Air Intake and Output 12/22/18 12/22/18 12/23/18 14:59 22:59 06:59 Intake Total 700 ml 70 ml Output Total 50 ml 200 ml Balance -50 ml 700 ml -130 ml Nutrition Consultation Dietary Evaluation: Recommendations by RD: PPN/TPN Comments: continue nutrition care order Expected Outcomes/Goals: to meet > 75% est nutr needs via TPN Malnutrition Findings: Body Fat Depletion (Non Severe: Mild Depletion Weight Status: Underweight BENITA LUTZ MD Dec 23, 2018 11:39
--- NOTE | 2018-12-23 11:42 | PDOC ---
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 12/23/18 1142: SURGICAL PROGRESS NOTE Subjective pain at abdomen spot hoping it will start draining Vital Signs Vital Signs Date Time Temp Pulse Resp B/P (MAP) Pulse Ox O2 Delivery O2 Flow Rate FiO2 12/23/18 11:28 93.4 91 16 141/123 (129) 100 Room Air 93.4 I&O Intake and Output 12/23/18 06:59 Intake Total 770 ml Output Total 250 ml Balance 520 ml Intake Oral 70 ml IV Total 700 ml Emesis 250 ml # Voids 5 General: Alert, Oriented X3, Cooperative, No acute distress Abdomen: Soft, Other (tender area to right abdomen, + fluctuance, left area with drainage ) Labs Laboratory Tests Test 12/21/18 21:55 12/22/18 05:19 12/22/18 15:00 12/23/18 06:00 White Blood Count 6.6 x10^3/uL (4.0-11.0) 6.1 x10^3/uL (4.0-11.0) 5.2 x10^3/uL (4.0-11.0) Red Blood Count 3.42 x10^6/uL (3.50-5.40) 3.37 x10^6/uL (3.50-5.40) 3.12 x10^6/uL (3.50-5.40) Hemoglobin 10.1 g/dL (12.0-15.5) 10.0 g/dL (12.0-15.5) 9.2 g/dL (12.0-15.5) Hematocrit 29.7 % (36.0-47.0) 29.5 % (36.0-47.0) 27.5 % (36.0-47.0) Mean Corpuscular Volume 87 fL (79-100) 88 fL (79-100) 88 fL (79-100) Mean Corpuscular Hemoglobin 30 pg (25-35) 30 pg (25-35) 30 pg (25-35) Mean Corpuscular Hemoglobin Concent 34 g/dL (31-37) 34 g/dL (31-37) 34 g/dL (31-37) Red Cell Distribution Width 16.5 % (11.5-14.5) 16.4 % (11.5-14.5) 17.0 % (11.5-14.5) Platelet Count 404 x10^3/uL (140-400) 432 x10^3/uL (140-400) 412 x10^3/uL (140-400) Neutrophils (%) (Auto) 63 % (31-73) 66 % (31-73) 70 % (31-73) Lymphocytes (%) (Auto) 21 % (24-48) 23 % (24-48) 19 % (24-48) Monocytes (%) (Auto) 13 % (0-9) 9 % (0-9) 8 % (0-9) Eosinophils (%) (Auto) 2 % (0-3) 1 % (0-3) 1 % (0-3) Basophils (%) (Auto) 1 % (0-3) 1 % (0-3) 1 % (0-3) Neutrophils # (Auto) 4.2 x10^3/uL (1.8-7.7) 4.0 x10^3/uL (1.8-7.7) 3.7 x10^3/uL (1.8-7.7) Lymphocytes # (Auto) 1.4 x10^3/uL (1.0-4.8) 1.4 x10^3/uL (1.0-4.8) 1.0 x10^3/uL (1.0-4.8) Monocytes # (Auto) 0.8 x10^3/uL (0.0-1.1) 0.5 x10^3/uL (0.0-1.1) 0.4 x10^3/uL (0.0-1.1) Eosinophils # (Auto) 0.1 x10^3/uL (0.0-0.7) 0.1 x10^3/uL (0.0-0.7) 0.1 x10^3/uL (0.0-0.7) Basophils # (Auto) 0.1 x10^3/uL (0.0-0.2) 0.1 x10^3/uL (0.0-0.2) 0.0 x10^3/uL (0.0-0.2) Sodium Level 137 mmol/L (136-145) 139 mmol/L (136-145) 141 mmol/L (136-145) Potassium Level 2.5 mmol/L (3.5-5.1) 2.8 mmol/L (3.5-5.1) 3.7 mmol/L (3.5-5.1) Chloride Level 103 mmol/L (98-107) 106 mmol/L (98-107) 110 mmol/L (98-107) Carbon Dioxide Level 22 mmol/L (21-32) 22 mmol/L (21-32) 26 mmol/L (21-32) Anion Gap 12 (6-14) 11 (6-14) 5 (6-14) Blood Urea Nitrogen 8 mg/dL (7-20) 7 mg/dL (7-20) 7 mg/dL (7-20) Creatinine 0.6 mg/dL (0.6-1.0) 0.6 mg/dL (0.6-1.0) 0.6 mg/dL (0.6-1.0) Estimated GFR (Cockcroft-Gault) 122.2 122.2 122.2 BUN/Creatinine Ratio 13 (6-20) 12 (6-20) Glucose Level 85 mg/dL (70-99) 130 mg/dL (70-99) 215 mg/dL (70-99) Lactic Acid Level 1.3 mmol/L (0.4-2.0) Calcium Level 6.3 mg/dL (8.5-10.1) 6.4 mg/dL (8.5-10.1) 7.0 mg/dL (8.5-10.1) Magnesium Level 0.5 mg/dL (1.8-2.4) 2.5 mg/dL (1.8-2.4) Total Bilirubin 0.5 mg/dL (0.2-1.0) 0.5 mg/dL (0.2-1.0) Aspartate Amino Transf (AST/SGOT) 11 U/L (15-37) 13 U/L (15-37) Alanine Aminotransferase (ALT/SGPT) 7 U/L (14-59) 8 U/L (14-59) Alkaline Phosphatase 89 U/L (46-116) 81 U/L (46-116) Total Protein 7.1 g/dL (6.4-8.2) 6.7 g/dL (6.4-8.2) Albumin 1.5 g/dL (3.4-5.0) 1.4 g/dL (3.4-5.0) Albumin/Globulin Ratio 0.3 (1.0-1.7) 0.3 (1.0-1.7) Lipase 25 U/L (73-393) Clostridium difficile Toxin B Gene Negative (Negative) Phosphorus Level 2.1 mg/dL (2.6-4.7) Thyroid Stimulating Hormone (TSH) 1.939 uIU/mL (0.358-3.74) Free Thyroxine 1.37 ng/dL (0.76-1.46) Laboratory Tests Test 12/22/18 15:00 12/23/18 06:00 White Blood Count 6.1 x10^3/uL (4.0-11.0) 5.2 x10^3/uL (4.0-11.0) Red Blood Count 3.37 x10^6/uL (3.50-5.40) 3.12 x10^6/uL (3.50-5.40) Hemoglobin 10.0 g/dL (12.0-15.5) 9.2 g/dL (12.0-15.5) Hematocrit 29.5 % (36.0-47.0) 27.5 % (36.0-47.0) Mean Corpuscular Volume 88 fL (79-100) 88 fL (79-100) Mean Corpuscular Hemoglobin 30 pg (25-35) 30 pg (25-35) Mean Corpuscular Hemoglobin Concent 34 g/dL (31-37) 34 g/dL (31-37) Red Cell Distribution Width 16.4 % (11.5-14.5) 17.0 % (11.5-14.5) Platelet Count 432 x10^3/uL (140-400) 412 x10^3/uL (140-400) Neutrophils (%) (Auto) 66 % (31-73) 70 % (31-73) Lymphocytes (%) (Auto) 23 % (24-48) 19 % (24-48) Monocytes (%) (Auto) 9 % (0-9) 8 % (0-9) Eosinophils (%) (Auto) 1 % (0-3) 1 % (0-3) Basophils (%) (Auto) 1 % (0-3) 1 % (0-3) Neutrophils # (Auto) 4.0 x10^3/uL (1.8-7.7) 3.7 x10^3/uL (1.8-7.7) Lymphocytes # (Auto) 1.4 x10^3/uL (1.0-4.8) 1.0 x10^3/uL (1.0-4.8) Monocytes # (Auto) 0.5 x10^3/uL (0.0-1.1) 0.4 x10^3/uL (0.0-1.1) Eosinophils # (Auto) 0.1 x10^3/uL (0.0-0.7) 0.1 x10^3/uL (0.0-0.7) Basophils # (Auto) 0.1 x10^3/uL (0.0-0.2) 0.0 x10^3/uL (0.0-0.2) Sodium Level 139 mmol/L (136-145) 141 mmol/L (136-145) Potassium Level 2.8 mmol/L (3.5-5.1) 3.7 mmol/L (3.5-5.1) Chloride Level 106 mmol/L (98-107) 110 mmol/L (98-107) Carbon Dioxide Level 22 mmol/L (21-32) 26 mmol/L (21-32) Anion Gap 11 (6-14) 5 (6-14) Blood Urea Nitrogen 7 mg/dL (7-20) 7 mg/dL (7-20) Creatinine 0.6 mg/dL (0.6-1.0) 0.6 mg/dL (0.6-1.0) Estimated GFR (Cockcroft-Gault) 122.2 122.2 BUN/Creatinine Ratio 12 (6-20) Glucose Level 130 mg/dL (70-99) 215 mg/dL (70-99) Calcium Level 6.4 mg/dL (8.5-10.1) 7.0 mg/dL (8.5-10.1) Total Bilirubin 0.5 mg/dL (0.2-1.0) Aspartate Amino Transf (AST/SGOT) 13 U/L (15-37) Alanine Aminotransferase (ALT/SGPT) 8 U/L (14-59) Alkaline Phosphatase 81 U/L (46-116) Total Protein 6.7 g/dL (6.4-8.2) Albumin 1.4 g/dL (3.4-5.0) Albumin/Globulin Ratio 0.3 (1.0-1.7) Phosphorus Level 2.1 mg/dL (2.6-4.7) Magnesium Level 2.5 mg/dL (1.8-2.4) Thyroid Stimulating Hormone (TSH) 1.939 uIU/mL (0.358-3.74) Free Thyroxine 1.37 ng/dL (0.76-1.46) Problem List Problems Medical Problems: (1) Fever Status: Acute (2) Severe protein-calorie malnutrition Status: Acute Assessment/Plan supportive measures attempt to allow area to declare itself ANIA PATTON MD 12/23/18 1629: SURGICAL PROGRESS NOTE Assessment/Plan pt seen now able to express some purulent drainage from the area of redness will culture drainage wound care JULY SUGGS APRN Dec 23, 2018 11:42 ANIA PATTON MD Dec 23, 2018 16:29
--- NOTE | 2018-12-23 11:49 | PDOC ---
Subjective: Subjective: No diarrhea, abd pain is better but one area is very tender and she thinks it would be improved with a heating pad. Reports n/v - says it started in the ER. Discusses the details that led her to come to the hospital - abd pain ("I never have that much pain"), diarrhea w/ concern for hypokalemia and hypomagnesemia, fever. Objective: Vital Signs: Vital Signs Date Time Temp Pulse Resp B/P (MAP) Pulse Ox O2 Delivery O2 Flow Rate FiO2 12/23/18 11:28 93.4 91 16 141/123 (129) 100 Room Air 93.4 Labs: Laboratory Tests Test 12/22/18 15:00 12/23/18 06:00 White Blood Count 6.1 x10^3/uL 5.2 x10^3/uL Red Blood Count 3.37 x10^6/uL 3.12 x10^6/uL Hemoglobin 10.0 g/dL 9.2 g/dL Hematocrit 29.5 % 27.5 % Mean Corpuscular Volume 88 fL 88 fL Mean Corpuscular Hemoglobin 30 pg 30 pg Mean Corpuscular Hemoglobin Concent 34 g/dL 34 g/dL Red Cell Distribution Width 16.4 % 17.0 % Platelet Count 432 x10^3/uL 412 x10^3/uL Neutrophils (%) (Auto) 66 % 70 % Lymphocytes (%) (Auto) 23 % 19 % Monocytes (%) (Auto) 9 % 8 % Eosinophils (%) (Auto) 1 % 1 % Basophils (%) (Auto) 1 % 1 % Neutrophils # (Auto) 4.0 x10^3/uL 3.7 x10^3/uL Lymphocytes # (Auto) 1.4 x10^3/uL 1.0 x10^3/uL Monocytes # (Auto) 0.5 x10^3/uL 0.4 x10^3/uL Eosinophils # (Auto) 0.1 x10^3/uL 0.1 x10^3/uL Basophils # (Auto) 0.1 x10^3/uL 0.0 x10^3/uL Sodium Level 139 mmol/L 141 mmol/L Potassium Level 2.8 mmol/L 3.7 mmol/L Chloride Level 106 mmol/L 110 mmol/L Carbon Dioxide Level 22 mmol/L 26 mmol/L Anion Gap 11 5 Blood Urea Nitrogen 7 mg/dL 7 mg/dL Creatinine 0.6 mg/dL 0.6 mg/dL Estimated GFR (Cockcroft-Gault) 122.2 122.2 BUN/Creatinine Ratio 12 Glucose Level 130 mg/dL 215 mg/dL Calcium Level 6.4 mg/dL 7.0 mg/dL Total Bilirubin 0.5 mg/dL Aspartate Amino Transf (AST/SGOT) 13 U/L Alanine Aminotransferase (ALT/SGPT) 8 U/L Alkaline Phosphatase 81 U/L Total Protein 6.7 g/dL Albumin 1.4 g/dL Albumin/Globulin Ratio 0.3 Phosphorus Level 2.1 mg/dL Magnesium Level 2.5 mg/dL Thyroid Stimulating Hormone (TSH) 1.939 uIU/mL Free Thyroxine 1.37 ng/dL BLOOD CULTURE Preliminary NO GROWTH AFTER 1 DAY PE: GEN: NAD LUNGS: CTAB HEART: RRR ABD: soft, tender, fistula w/minimal drainage NEURO/PSYCH: A & O 3 A/P: Diarrhea - resolved, C Diff neg Chronic/recurrent n/v and abd pain w/ fistulae drainage, ?intermittent obstruction - on TPN, eats fruit and eggs and cottage cheese GERD -- Follow surgical and ID recs. Continue PPI. MIESHA RICO Dec 23, 2018 11:49
[2018-12-23] MEDS: TPN PER PHARMACY MC PRN (13:16)
--- NOTE | 2018-12-23 13:19 | NUR ---
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 Height: 5 feet, 4 inches Weight: 47.311693 kg Current diet: LABS: Sodium: 141 Potassium: 3.7 Chloride: 110 Calcium: 7.0 Corrected Calcium: 9.08 Magnesium: 2.5 CO2: 26 SCr: 0.6 Glucose: 215 Albumin: 1.4 AST: ALT: TPN FORMULA: TPN TYPE: Central Continuous AMINO ACIDS: 90 gm DEXTROSE: 285 gm LIPIDS: 30 gm SODIUM CHLORIDE: 200 mEq SODIUM ACETATE: mEq SODIUM PHOSPHATE: 9.99 mmol POTASSIUM CHLORIDE: 100 mEq POTASSIUM ACETATE: mEq POTASSIUM PHOSPHATE: 13.6 mmol MAGNESIUM: 35 mEq CALCIUM: 14 mEq INSULIN: units MULTIPLE VITAMIN: 10 ml TRACE ELEMENTS: 1 ml(s) TPN PLAN: adjust NACL TO 200 MEQ, UP KPHOS TO 13.6MM, DECREASE MAGSO4 TO 35 MEQ. R: Continue TPN AT 80 ML/HR Will monitor electrolytes, glucose, and tolerance to TPN. MARQUEZ FIGUEROA [facility], 12/23/18 [id number]
--- NOTE | 2018-12-23 14:09 | NUR ---
Patient became tachycardic while eating lunch at 1300. The heart rate increased to 110's-130 as observed on the laundry technician. Upon assessment, the patient denies chest pain, palpitations, shortness of breath. Lung sounds are clear bilaterally. VS BP 140/88 HR 105 RR 18 O2 sat 100% on room air. She complains of worsening abdominal pain 01/21. Notified Dr. Cisneros at 1400, order received to give another dose of dilaudid. We'll continue to monitor.
[2018-12-23] MEDS ORDERED: HYDROmorphone 2 MG/ML VIAL IV ONE (14:30)
[2018-12-23] MEDS: HYDROmorphone 2 MG/ML VIAL IV PRN ×2 (18:08→21:23)
[2018-12-23] MEDS ORDERED: [UNRECOGNIZED DRUG - OTHER] IV SCH ×11 (22:00)
[2018-12-23] MEDS ORDERED: DEXTROSE 70% IV SCH ×11 (22:00)
[2018-12-23] MEDS ORDERED: TOTAL PARENTERAL NUTRITION IV SCH ×11 (22:00)
[2018-12-23] MEDS ORDERED: AMINO ACID IV SCH ×11 (22:00)
[2018-12-24] MEDS: PIPERACILLIN/TAZOBACTAM 3.375 GM in IV NORMAL SALINE 50ML 50 ML IV SCH ×4 (01:34→17:53)
[2018-12-24 02:53] VITALS: BP 144/87
[2018-12-24] MEDS: HYDROmorphone 2 MG/ML VIAL IV PRN ×3 (03:52→22:38)
[2018-12-24 06:44] LABS: BASO % 1 % (0-3); EOS # 0.1 x10^3/uL (0.0-0.7); EOS % 1 % (0-3); HEMATOCRIT 29.1 % (36.0-47.0); HEMOGLOBIN 9.6 g/dL (12.0-15.5); LYMPH # 0.6 x10^3/uL (1.0-4.8); LYMPH % 9 % (24-48); MEAN CORPUSCULAR HEMOGLOBIN 30 pg (25-35); MEAN CORPUSCULAR HGB CONC 33 g/dL (31-37); MEAN CORPUSCULAR VOLUME 90 fL (79-100); MONO # 0.6 x10^3/uL (0.0-1.1); MONO % 8 % (0-9); NEUT # 6.1 x10^3/uL (1.8-7.7); NEUT % 83 % (31-73); PLATELET COUNT 417 x10^3/uL (140-400); RED BLOOD COUNT 3.25 x10^6/uL (3.50-5.40); RED CELL DISTRIBUTION WIDTH 17.2 % (11.5-14.5); WHITE BLOOD COUNT 7.4 x10^3/uL (4.0-11.0)
[2018-12-24 07:00] LABS: CALCIUM 8.2 mg/dL (8.5-10.1); CREATININE 0.6 mg/dL (0.6-1.0); GFR 122.2; MAGNESIUM 2.7 mg/dL (1.8-2.4); POTASSIUM 4.8 mmol/L (3.5-5.1)
[2018-12-24 07:40] VITALS: BP 153/93
[2018-12-24] MEDS: LIDOCAINE/PRILOCAINE TOPICAL CREAM 5GM TUBE. TP SCH ×2 (08:14→20:38)
[2018-12-24] MEDS: ZINC OXIDE 20% TOPICAL OINTMENT 28GM TUBE. TP SCH ×2 (08:14→20:38)
[2018-12-24] MEDS: LACTOBACILLUS RHAMNOSUS GG 1 CAPSULE. PO SCH ×2 (08:15→20:37)
[2018-12-24] MEDS: PANTOPRAZOLE 40 MG TABLET.DR. PO SCH (08:15)
[2018-12-24] MEDS: HYDROmorphone 2 MG/ML VIAL IVP PRN ×2 (08:20→10:52)
--- NOTE | 2018-12-24 10:46 | PDOC ---
Infectious Disease Note Subjective Subjective Not feeling well Ongoing abdominal wall pain No fevers or chills Vital Sign Vital Signs Vital Signs Date Time Temp Pulse Resp B/P (MAP) Pulse Ox O2 Delivery O2 Flow Rate FiO2 12/24/18 08:50 Room Air 12/24/18 07:40 97.5 101 17 153/93 (113) 98 97.5 Physical Exam PHYSICAL EXAM GENERAL: Propped up in bed, alert, smiling LUNGS: Clear bilaterally. HEART: S1, S2. ABDOMEN: Soft, nondistended. Enterocutaneous fistula with small hole with some excoriation. Two abscesses, one spont ruptured, the other w/ some drainage EXTREMITIES: No edema, no cyanosis and no clubbing. DERMATOLOGIC: Warm to touch NEUROLOGIC: Alert and oriented x 3, grossly nonfocal. Power PICC without signs of complication. Labs Lab Laboratory Tests Test 12/24/18 06:30 White Blood Count 7.4 x10^3/uL (4.0-11.0) Red Blood Count 3.25 x10^6/uL (3.50-5.40) Hemoglobin 9.6 g/dL (12.0-15.5) Hematocrit 29.1 % (36.0-47.0) Mean Corpuscular Volume 90 fL (79-100) Mean Corpuscular Hemoglobin 30 pg (25-35) Mean Corpuscular Hemoglobin Concent 33 g/dL (31-37) Red Cell Distribution Width 17.2 % (11.5-14.5) Platelet Count 417 x10^3/uL (140-400) Neutrophils (%) (Auto) 83 % (31-73) Lymphocytes (%) (Auto) 9 % (24-48) Monocytes (%) (Auto) 8 % (0-9) Eosinophils (%) (Auto) 1 % (0-3) Basophils (%) (Auto) 1 % (0-3) Neutrophils # (Auto) 6.1 x10^3/uL (1.8-7.7) Lymphocytes # (Auto) 0.6 x10^3/uL (1.0-4.8) Monocytes # (Auto) 0.6 x10^3/uL (0.0-1.1) Eosinophils # (Auto) 0.1 x10^3/uL (0.0-0.7) Basophils # (Auto) 0.0 x10^3/uL (0.0-0.2) Sodium Level 142 mmol/L (136-145) Potassium Level 4.8 mmol/L (3.5-5.1) Chloride Level 112 mmol/L (98-107) Carbon Dioxide Level 26 mmol/L (21-32) Anion Gap 4 (6-14) Blood Urea Nitrogen 9 mg/dL (7-20) Creatinine 0.6 mg/dL (0.6-1.0) Estimated GFR (Cockcroft-Gault) 122.2 Glucose Level 168 mg/dL (70-99) Calcium Level 8.2 mg/dL (8.5-10.1) Magnesium Level 2.7 mg/dL (1.8-2.4) Micro Microbiology 12/21/18 Blood Culture - Preliminary, Resulted NO GROWTH AFTER 2 DAYS Objective Assessment Fever at home, afebrile here. Abdominal pain. Abdominal wall abscesses. History of enterocutaneous and vesicoenteric fistula, chronic with multiple surgeries, on chronic TPN. History of recurrent urinary tract infections, had 9 infections, Nausea and vomiting. Diarrhea. Plan Plan of Care Continue Zyvox and Zosyn. Probiotics General Surgery following f/u cultures cultures. Local wound care. May need local I and D if fluid collection does not open on its own. She is comfortable. Attending Co-Sign Attending Co-Sign The patient was seen and interviewed as well as examined at the bedside. The chart was reviewed. The case was discussed. Agree with the plan of care. MARICARMEN COLEMAN APRN Dec 24, 2018 10:46 ABBY MOTT MD Dec 24, 2018 14:34
--- NOTE | 2018-12-24 11:06 | PDOC ---
G I PROGRESS NOTE Subjective Seems in better spirits. No diarrhea. No N, V today. Has cottage cheese and fruit on tray. Physical Exam Lungs clear RRR Abdomen soft, not distended, some tenderness/scattered. Scars/fistulae. Review of Relevant I have reviewed the following items lucila (where applicable) has been applied. Labs Laboratory Tests Test 12/22/18 15:00 12/23/18 06:00 12/24/18 06:30 White Blood Count 6.1 x10^3/uL (4.0-11.0) 5.2 x10^3/uL (4.0-11.0) 7.4 x10^3/uL (4.0-11.0) Red Blood Count 3.37 x10^6/uL (3.50-5.40) 3.12 x10^6/uL (3.50-5.40) 3.25 x10^6/uL (3.50-5.40) Hemoglobin 10.0 g/dL (12.0-15.5) 9.2 g/dL (12.0-15.5) 9.6 g/dL (12.0-15.5) Hematocrit 29.5 % (36.0-47.0) 27.5 % (36.0-47.0) 29.1 % (36.0-47.0) Mean Corpuscular Volume 88 fL (79-100) 88 fL (79-100) 90 fL (79-100) Mean Corpuscular Hemoglobin 30 pg (25-35) 30 pg (25-35) 30 pg (25-35) Mean Corpuscular Hemoglobin Concent 34 g/dL (31-37) 34 g/dL (31-37) 33 g/dL (31-37) Red Cell Distribution Width 16.4 % (11.5-14.5) 17.0 % (11.5-14.5) 17.2 % (11.5-14.5) Platelet Count 432 x10^3/uL (140-400) 412 x10^3/uL (140-400) 417 x10^3/uL (140-400) Neutrophils (%) (Auto) 66 % (31-73) 70 % (31-73) 83 % (31-73) Lymphocytes (%) (Auto) 23 % (24-48) 19 % (24-48) 9 % (24-48) Monocytes (%) (Auto) 9 % (0-9) 8 % (0-9) 8 % (0-9) Eosinophils (%) (Auto) 1 % (0-3) 1 % (0-3) 1 % (0-3) Basophils (%) (Auto) 1 % (0-3) 1 % (0-3) 1 % (0-3) Neutrophils # (Auto) 4.0 x10^3/uL (1.8-7.7) 3.7 x10^3/uL (1.8-7.7) 6.1 x10^3/uL (1.8-7.7) Lymphocytes # (Auto) 1.4 x10^3/uL (1.0-4.8) 1.0 x10^3/uL (1.0-4.8) 0.6 x10^3/uL (1.0-4.8) Monocytes # (Auto) 0.5 x10^3/uL (0.0-1.1) 0.4 x10^3/uL (0.0-1.1) 0.6 x10^3/uL (0.0-1.1) Eosinophils # (Auto) 0.1 x10^3/uL (0.0-0.7) 0.1 x10^3/uL (0.0-0.7) 0.1 x10^3/uL (0.0-0.7) Basophils # (Auto) 0.1 x10^3/uL (0.0-0.2) 0.0 x10^3/uL (0.0-0.2) 0.0 x10^3/uL (0.0-0.2) Sodium Level 139 mmol/L (136-145) 141 mmol/L (136-145) 142 mmol/L (136-145) Potassium Level 2.8 mmol/L (3.5-5.1) 3.7 mmol/L (3.5-5.1) 4.8 mmol/L (3.5-5.1) Chloride Level 106 mmol/L (98-107) 110 mmol/L (98-107) 112 mmol/L (98-107) Carbon Dioxide Level 22 mmol/L (21-32) 26 mmol/L (21-32) 26 mmol/L (21-32) Anion Gap 11 (6-14) 5 (6-14) 4 (6-14) Blood Urea Nitrogen 7 mg/dL (7-20) 7 mg/dL (7-20) 9 mg/dL (7-20) Creatinine 0.6 mg/dL (0.6-1.0) 0.6 mg/dL (0.6-1.0) 0.6 mg/dL (0.6-1.0) Estimated GFR (Cockcroft-Gault) 122.2 122.2 122.2 BUN/Creatinine Ratio 12 (6-20) Glucose Level 130 mg/dL (70-99) 215 mg/dL (70-99) 168 mg/dL (70-99) Calcium Level 6.4 mg/dL (8.5-10.1) 7.0 mg/dL (8.5-10.1) 8.2 mg/dL (8.5-10.1) Total Bilirubin 0.5 mg/dL (0.2-1.0) Aspartate Amino Transf (AST/SGOT) 13 U/L (15-37) Alanine Aminotransferase (ALT/SGPT) 8 U/L (14-59) Alkaline Phosphatase 81 U/L (46-116) Total Protein 6.7 g/dL (6.4-8.2) Albumin 1.4 g/dL (3.4-5.0) Albumin/Globulin Ratio 0.3 (1.0-1.7) Phosphorus Level 2.1 mg/dL (2.6-4.7) Magnesium Level 2.5 mg/dL (1.8-2.4) 2.7 mg/dL (1.8-2.4) Thyroid Stimulating Hormone (TSH) 1.939 uIU/mL (0.358-3.74) Free Thyroxine 1.37 ng/dL (0.76-1.46) Laboratory Tests Test 12/24/18 06:30 White Blood Count 7.4 x10^3/uL (4.0-11.0) Red Blood Count 3.25 x10^6/uL (3.50-5.40) Hemoglobin 9.6 g/dL (12.0-15.5) Hematocrit 29.1 % (36.0-47.0) Mean Corpuscular Volume 90 fL (79-100) Mean Corpuscular Hemoglobin 30 pg (25-35) Mean Corpuscular Hemoglobin Concent 33 g/dL (31-37) Red Cell Distribution Width 17.2 % (11.5-14.5) Platelet Count 417 x10^3/uL (140-400) Neutrophils (%) (Auto) 83 % (31-73) Lymphocytes (%) (Auto) 9 % (24-48) Monocytes (%) (Auto) 8 % (0-9) Eosinophils (%) (Auto) 1 % (0-3) Basophils (%) (Auto) 1 % (0-3) Neutrophils # (Auto) 6.1 x10^3/uL (1.8-7.7) Lymphocytes # (Auto) 0.6 x10^3/uL (1.0-4.8) Monocytes # (Auto) 0.6 x10^3/uL (0.0-1.1) Eosinophils # (Auto) 0.1 x10^3/uL (0.0-0.7) Basophils # (Auto) 0.0 x10^3/uL (0.0-0.2) Sodium Level 142 mmol/L (136-145) Potassium Level 4.8 mmol/L (3.5-5.1) Chloride Level 112 mmol/L (98-107) Carbon Dioxide Level 26 mmol/L (21-32) Anion Gap 4 (6-14) Blood Urea Nitrogen 9 mg/dL (7-20) Creatinine 0.6 mg/dL (0.6-1.0) Estimated GFR (Cockcroft-Gault) 122.2 Glucose Level 168 mg/dL (70-99) Calcium Level 8.2 mg/dL (8.5-10.1) Magnesium Level 2.7 mg/dL (1.8-2.4) Microbiology 12/21/18 Blood Culture - Preliminary, Resulted NO GROWTH AFTER 2 DAYS Vitals/I & O Vital Sign - Last 24 Hours 12/23/18 12/23/18 12/23/18 12/23/18 11:28 12:14 12:45 13:45 Temp 93.4 93.4 Pulse 91 105 Resp 16 19 19 18 B/P (MAP) 141/123 (129) 140/88 (105) Pulse Ox 100 100 100 100 O2 Delivery Room Air Room Air Room Air 12/23/18 12/23/18 12/23/18 12/23/18 14:26 15:13 18:08 18:45 Temp 95.1 95.1 Pulse 108 Resp 19 16 19 20 B/P (MAP) 142/83 (102) Pulse Ox 100 98 98 98 O2 Delivery Room Air Room Air Room Air 12/23/18 12/23/18 12/23/18 12/24/18 19:00 20:10 23:00 02:53 Temp 97.9 97.9 97.8 97.9 97.9 97.8 Pulse 64 117 110 Resp 17 17 B/P (MAP) 132/71 (91) 154/91 (112) 144/87 (106) Pulse Ox 97 98 96 O2 Delivery Room Air Room Air Room Air Room Air 12/24/18 12/24/18 12/24/18 12/24/18 03:52 04:20 07:40 08:00 Temp 97.5 97.5 Pulse 101 Resp 17 B/P (MAP) 153/93 (113) Pulse Ox 96 98 O2 Delivery Room Air Room Air Room Air Room Air 12/24/18 12/24/18 12/24/18 08:20 08:50 10:52 O2 Delivery Room Air Room Air Room Air Intake and Output 12/23/18 12/23/18 12/24/18 15:00 23:00 07:00 Intake Total 0 ml 60 ml Balance 0 ml 60 ml Problem List Problems Medical Problems: (1) Fever Status: Acute (2) Severe protein-calorie malnutrition Status: Acute Assessment Fever down. No micro results yet. Diarrhea short-lived; really resolving obstruction? Plan of Care Note Continue as now. Await pendiing data. BENITA CALVILLO MD Dec 24, 2018 11:06
[2018-12-24 11:16] VITALS: BP 157/95
--- NOTE | 2018-12-24 11:44 | PDOC ---
PROGRESS NOTES Subjective Subjective feels okay . has bipedal edema and sinus tachycardia. afebrile. blood cultures negative. lab reviewed. potassium 4.8 and magnesium 2.7. spoke with pharmacist and will decrease kcl and magnesium in TPN. has abdominal wall abscesses. bp is high Objective Objective Vital Signs Date Time Temp Pulse Resp B/P (MAP) Pulse Ox O2 Delivery O2 Flow Rate FiO2 12/24/18 11:16 97.7 115 18 157/95 (115) 100 Room Air 97.7 Intake and Output 12/24/18 07:00 Intake Total 60 ml Balance 60 ml Intake Oral 60 ml # Voids 4 Physical Exam Abdomen: Soft, Other (abdominal wall enlarged area with redness and firmness) Heart: Regular rate, Normal S1, Normal S2 Extremities: Other (bipedal edema) General: Alert HEENT: Atraumatic Lungs: Clear to auscultation Neuro: Normal speech Psych/Mental Status: Mental status NL Skin: No rashes Assessment Assessment Problems1. Fever resolved She does not have leukocytosis or lactic acidosis 2. Severe hypokalemia. resolved 3. Severe hypomagnesemia.resolved 4. Enterocutaneous fistula. 5. possible sq abdominal abscesses 6. Severe protein-calorie malnutrition. 7. Enterovesical fistula. abdominal wall abscess Medical Problems: (1) Fever Status: Acute (2) Severe protein-calorie malnutrition Status: Acute Plan Plan of Care decrease kcl and magnesium in TPN iv lasix now start amlodipine iv zyvox and zosyn discussed with dr. Franklin yesterday Comment Review of Relevant I have reviewed the following items lucila (where applicable) has been applied. Labs Laboratory Tests Test 12/22/18 15:00 12/23/18 06:00 12/24/18 06:30 White Blood Count 6.1 x10^3/uL (4.0-11.0) 5.2 x10^3/uL (4.0-11.0) 7.4 x10^3/uL (4.0-11.0) Red Blood Count 3.37 x10^6/uL (3.50-5.40) 3.12 x10^6/uL (3.50-5.40) 3.25 x10^6/uL (3.50-5.40) Hemoglobin 10.0 g/dL (12.0-15.5) 9.2 g/dL (12.0-15.5) 9.6 g/dL (12.0-15.5) Hematocrit 29.5 % (36.0-47.0) 27.5 % (36.0-47.0) 29.1 % (36.0-47.0) Mean Corpuscular Volume 88 fL (79-100) 88 fL (79-100) 90 fL (79-100) Mean Corpuscular Hemoglobin 30 pg (25-35) 30 pg (25-35) 30 pg (25-35) Mean Corpuscular Hemoglobin Concent 34 g/dL (31-37) 34 g/dL (31-37) 33 g/dL (31-37) Red Cell Distribution Width 16.4 % (11.5-14.5) 17.0 % (11.5-14.5) 17.2 % (11.5-14.5) Platelet Count 432 x10^3/uL (140-400) 412 x10^3/uL (140-400) 417 x10^3/uL (140-400) Neutrophils (%) (Auto) 66 % (31-73) 70 % (31-73) 83 % (31-73) Lymphocytes (%) (Auto) 23 % (24-48) 19 % (24-48) 9 % (24-48) Monocytes (%) (Auto) 9 % (0-9) 8 % (0-9) 8 % (0-9) Eosinophils (%) (Auto) 1 % (0-3) 1 % (0-3) 1 % (0-3) Basophils (%) (Auto) 1 % (0-3) 1 % (0-3) 1 % (0-3) Neutrophils # (Auto) 4.0 x10^3/uL (1.8-7.7) 3.7 x10^3/uL (1.8-7.7) 6.1 x10^3/uL (1.8-7.7) Lymphocytes # (Auto) 1.4 x10^3/uL (1.0-4.8) 1.0 x10^3/uL (1.0-4.8) 0.6 x10^3/uL (1.0-4.8) Monocytes # (Auto) 0.5 x10^3/uL (0.0-1.1) 0.4 x10^3/uL (0.0-1.1) 0.6 x10^3/uL (0.0-1.1) Eosinophils # (Auto) 0.1 x10^3/uL (0.0-0.7) 0.1 x10^3/uL (0.0-0.7) 0.1 x10^3/uL (0.0-0.7) Basophils # (Auto) 0.1 x10^3/uL (0.0-0.2) 0.0 x10^3/uL (0.0-0.2) 0.0 x10^3/uL (0.0-0.2) Sodium Level 139 mmol/L (136-145) 141 mmol/L (136-145) 142 mmol/L (136-145) Potassium Level 2.8 mmol/L (3.5-5.1) 3.7 mmol/L (3.5-5.1) 4.8 mmol/L (3.5-5.1) Chloride Level 106 mmol/L (98-107) 110 mmol/L (98-107) 112 mmol/L (98-107) Carbon Dioxide Level 22 mmol/L (21-32) 26 mmol/L (21-32) 26 mmol/L (21-32) Anion Gap 11 (6-14) 5 (6-14) 4 (6-14) Blood Urea Nitrogen 7 mg/dL (7-20) 7 mg/dL (7-20) 9 mg/dL (7-20) Creatinine 0.6 mg/dL (0.6-1.0) 0.6 mg/dL (0.6-1.0) 0.6 mg/dL (0.6-1.0) Estimated GFR (Cockcroft-Gault) 122.2 122.2 122.2 BUN/Creatinine Ratio 12 (6-20) Glucose Level 130 mg/dL (70-99) 215 mg/dL (70-99) 168 mg/dL (70-99) Calcium Level 6.4 mg/dL (8.5-10.1) 7.0 mg/dL (8.5-10.1) 8.2 mg/dL (8.5-10.1) Total Bilirubin 0.5 mg/dL (0.2-1.0) Aspartate Amino Transf (AST/SGOT) 13 U/L (15-37) Alanine Aminotransferase (ALT/SGPT) 8 U/L (14-59) Alkaline Phosphatase 81 U/L (46-116) Total Protein 6.7 g/dL (6.4-8.2) Albumin 1.4 g/dL (3.4-5.0) Albumin/Globulin Ratio 0.3 (1.0-1.7) Phosphorus Level 2.1 mg/dL (2.6-4.7) 2.2 mg/dL (2.6-4.7) Magnesium Level 2.5 mg/dL (1.8-2.4) 2.7 mg/dL (1.8-2.4) Thyroid Stimulating Hormone (TSH) 1.939 uIU/mL (0.358-3.74) Free Thyroxine 1.37 ng/dL (0.76-1.46) Laboratory Tests Test 12/24/18 06:30 White Blood Count 7.4 x10^3/uL (4.0-11.0) Red Blood Count 3.25 x10^6/uL (3.50-5.40) Hemoglobin 9.6 g/dL (12.0-15.5) Hematocrit 29.1 % (36.0-47.0) Mean Corpuscular Volume 90 fL (79-100) Mean Corpuscular Hemoglobin 30 pg (25-35) Mean Corpuscular Hemoglobin Concent 33 g/dL (31-37) Red Cell Distribution Width 17.2 % (11.5-14.5) Platelet Count 417 x10^3/uL (140-400) Neutrophils (%) (Auto) 83 % (31-73) Lymphocytes (%) (Auto) 9 % (24-48) Monocytes (%) (Auto) 8 % (0-9) Eosinophils (%) (Auto) 1 % (0-3) Basophils (%) (Auto) 1 % (0-3) Neutrophils # (Auto) 6.1 x10^3/uL (1.8-7.7) Lymphocytes # (Auto) 0.6 x10^3/uL (1.0-4.8) Monocytes # (Auto) 0.6 x10^3/uL (0.0-1.1) Eosinophils # (Auto) 0.1 x10^3/uL (0.0-0.7) Basophils # (Auto) 0.0 x10^3/uL (0.0-0.2) Sodium Level 142 mmol/L (136-145) Potassium Level 4.8 mmol/L (3.5-5.1) Chloride Level 112 mmol/L (98-107) Carbon Dioxide Level 26 mmol/L (21-32) Anion Gap 4 (6-14) Blood Urea Nitrogen 9 mg/dL (7-20) Creatinine 0.6 mg/dL (0.6-1.0) Estimated GFR (Cockcroft-Gault) 122.2 Glucose Level 168 mg/dL (70-99) Calcium Level 8.2 mg/dL (8.5-10.1) Phosphorus Level 2.2 mg/dL (2.6-4.7) Magnesium Level 2.7 mg/dL (1.8-2.4) Microbiology 12/21/18 Blood Culture - Preliminary, Resulted NO GROWTH AFTER 2 DAYS Medications Current Medications Piperacillin Sod/ Tazobactam Sod 4.5 gm/Sodium Chloride 100 ml @ 200 mls/hr 1X ONCE IV Last administered on 12/21/18at 22:23; Start 12/21/18 at 22:00; Stop 12/21/18 at 22:29; Status DC Vancomycin HCl (Vanco Per Pharmacy) 1 each 1X ONCE MC ; Start 12/21/18 at 21:45; Stop 12/21/18 at 21:46; Status UNV Sodium Chloride 1,000 ml @ 1,320 mls/hr Q46M IV Last administered on 12/21/18at 22:24; Start 12/21/18 at 21:41; Stop 12/21/18 at 22:40; Status DC Hydromorphone HCl (Dilaudid) 1 mg PRN Q2HR PRN IVP PAIN Last administered on 12/22/18at 10:03; Start 12/21/18 at 22:30; Stop 12/22/18 at 12:24; Status DC Potassium Chloride/Water 50 ml @ 50 mls/hr Q1H IV Last administered on 12/22/18at 01:09; Start 12/21/18 at 23:00; Stop 12/22/18 at 00:59; Status DC Potassium Chloride (Klor-Con) 40 meq 1X ONCE PO ; Start 12/21/18 at 23:00; Stop 12/21/18 at 23:01; Status DC Linezolid/Dextrose 300 ml @ 300 mls/hr Q12HR IV Last administered on 12/24/18at 08:14; Start 12/22/18 at 09:00 Ondansetron HCl (Zofran) 4 mg PRN Q8HRS PRN IV NAUSEA/VOMITING Last administered on 12/22/18at 11:38; Start 12/21/18 at 23:30; Stop 12/22/18 at 23:29; Status DC Fentanyl Citrate (Fentanyl 2ml Vial) 50 mcg PRN Q1HR PRN IV PAIN; Start 12/21/18 at 23:30; Stop 12/22/18 at 23:29; Status DC Sodium Chloride 1,000 ml @ 100 mls/hr Q10H IV Last administered on 12/22/18at 11:37; Start 12/21/18 at 23:30; Stop 12/22/18 at 12:24; Status DC Magnesium Sulfate 3 gm/Dextrose 106 ml @ 35.333 mls/ hr 1X ONCE IV Last administered on 12/22/18at 00:05; Start 12/21/18 at 23:45; Stop 12/22/18 at 02:44; Status DC Piperacillin Sod/ Tazobactam Sod 3.375 gm/Sodium Chloride 50 ml @ 100 mls/hr Q6HRS IV Last administered on 12/24/18at 05:26; Start 12/22/18 at 12:00 Hydromorphone HCl (Dilaudid) 2 mg PRN Q4HRS PRN IVP MODERATE PAIN Last administered on 12/24/18at 10:52; Start 12/22/18 at 12:15 Hydromorphone HCl (Dilaudid) 4 mg PRN Q4HRS PRN IV SEVERE PAIN 7-10 Last administered on 12/24/18at 03:52; Start 12/22/18 at 12:15 Acetaminophen (Tylenol) 650 mg PRN Q6HRS PRN PO MILD PAIN / TEMP; Start 12/22/18 at 12:15 Ondansetron HCl (Zofran) 4 mg PRN Q6HRS PRN IV NAUSEA/VOMITING; Start 12/22/18 at 12:15 Lidocaine/ Prilocaine (Emla) 1 sang BID TP Last administered on 12/24/18at 08:14; Start 12/22/18 at 21:00 Zinc Oxide (Zinc Oxide 20% Topical) 1 sang BID TP Last administered on 12/24/18at 08:14; Start 12/22/18 at 21:00 Lorazepam (Ativan) 0.5 mg PRN Q6HRS PRN PO ANXIETY / AGITATION; Start 12/22/18 at 12:15 Zolpidem Tartrate (Ambien) 5 mg PRN QHS PRN PO INSOMNIA; Start 12/22/18 at 12:15 Magnesium Sulfate 50 ml @ 25 mls/hr 1X ONCE IV Last administered on 12/22/18at 13:40; Start 12/22/18 at 14:00; Stop 12/22/18 at 15:59; Status DC Potassium Chloride/Dextrose/ Sod Cl 1,000 ml @ 80 mls/hr [id number] IV Last administered on 12/22/18at 12:56; Start 12/22/18 at 13:00; Stop 12/22/18 at 22:00; Status DC Lactobacillus Rhamnosus (Culturelle) 1 cap BID PO Last administered on 12/24/18at 08:15; Start 12/22/18 at 21:00 Sodium Chloride 220 meq/Potassium Chloride 100 meq/ Potassium Phosphate 6.81 mmol/Magnesium Sulfate 40 meq/ Calcium Gluconate 14 meq/ Multivitamins 10 ml/Chromium/ Copper/Manganese/ Seleni/Zn 1 ml/ Sodium Phosphate 9.99 mmol/Total Parenteral Nutrition/Amino Acids/Dextrose/ Fat Emuls... 1,920 ml @ 80 mls/hr TPN CONT IV Last administered on 12/22/18at 21:43; Start 12/22/18 at 22:00; Stop 12/23/18 at 21:59; Status DC Info (Tpn Per Pharmacy) 1 each PRN DAILY PRN MC SEE COMMENTS Last administered on 12/23/18at 13:16; Start 12/22/18 at 14:15 Info (Tpn Per Pharmacy) 1 each PRN DAILY PRN MC SEE COMMENTS; Start 12/22/18 at 14:30; Status Cancel Pantoprazole Sodium (Protonix) 40 mg DAILYAC PO Last administered on 12/24/18at 08:15; Start 12/23/18 at 07:30 Ondansetron HCl (Zofran) 8 mg PRN Q6HRS PRN IV NAUSEA/VOMITING Last administered on 12/23/18at 18:08; Start 12/22/18 at 17:30 Potassium Chloride/Water 50 ml @ 50 mls/hr Q1H IV Last administered on 12/22/18at 20:14; Start 12/22/18 at 17:45; Stop 12/22/18 at 19:44; Status DC Sodium Chloride 200 meq/Potassium Chloride 100 meq/ Potassium Phosphate 13.6 mmol/Magnesium Sulfate 35 meq/ Calcium Gluconate 14 meq/ Multivitamins 10 ml/Chromium/ Copper/Manganese/ Seleni/Zn 1 ml/ Sodium Phosphate 9.99 mmol/Total Parenteral Nutrition/Amino Acids/Dextrose/ Fat Emuls... 1,920 ml @ 80 mls/hr TPN CONT IV Last administered on 12/23/18at 20:58; Start 12/23/18 at 22:00; Stop 12/24/18 at 21:59 Hydromorphone HCl (Dilaudid) 2 mg 1X ONCE IV Last administered on 12/23/18at 14:26; Start 12/23/18 at 14:30; Stop 12/23/18 at 14:31; Status DC Active Scripts Active Nystatin 15 Gm Cream..g. 1 Sang TP BID [Pantoprazole] 40 MG Tablet.dr 40 Mg PO DAILYAC 30 Days Zinc Oxide 56.7 Gm Oint...g. 1 Sang TP BID Ambien (Zolpidem Tartrate) 5 Mg Tablet 5 Mg PO PRN QHS PRN 30 Days [Tpn Per Pharmacy] 1 EACH Each 1 Each MC PRN DAILY PRN TPN at 85cc/hour Sertraline Hcl 50 Mg Tablet 50 Mg PO DAILY 30 Days Lidocaine 35.44 Gm Oint...g. 1 Sang TP BID Reported Zofran Odt (Ondansetron) 4 Mg Tab.rapdis 1 Tab SL PRN Q8HRS PRN Zinc Oxide 56.7 Gm Oint...g. 56.7 Gm TP PRN BID Dilaudid (Hydromorphone Hcl) 2 Mg Tablet 1 Tab PO PRN QID PRN Lorazepam 0.5 Mg Tablet 0.5 Mg PO Q6HRS PRN Vitals/I & O Vital Sign - Last 24 Hours 12/23/18 12/23/18 12/23/18 12/23/18 12:14 12:45 13:45 14:26 Pulse 105 Resp 19 19 18 19 B/P (MAP) 140/88 (105) Pulse Ox 100 100 100 100 O2 Delivery Room Air Room Air Room Air 12/23/18 12/23/18 12/23/18 12/23/18 15:13 18:08 18:45 19:00 Temp 95.1 97.9 95.1 97.9 Pulse 108 64 Resp 16 19 20 17 B/P (MAP) 142/83 (102) 132/71 (91) Pulse Ox 98 98 98 97 O2 Delivery Room Air Room Air Room Air 12/23/18 12/23/18 12/24/18 12/24/18 20:10 23:00 02:53 03:52 Temp 97.9 97.8 97.9 97.8 Pulse 117 110 Resp 17 17 B/P (MAP) 154/91 (112) 144/87 (106) Pulse Ox 98 96 96 O2 Delivery Room Air Room Air Room Air Room Air 12/24/18 12/24/18 12/24/18 12/24/18 04:20 07:40 08:00 08:20 Temp 97.5 97.5 Pulse 101 Resp 17 B/P (MAP) 153/93 (113) Pulse Ox 98 O2 Delivery Room Air Room Air Room Air Room Air 12/24/18 12/24/18 12/24/18 08:50 10:52 11:16 Temp 97.7 97.7 Pulse 115 Resp 18 B/P (MAP) 157/95 (115) Pulse Ox 100 O2 Delivery Room Air Room Air Room Air Intake and Output 12/23/18 12/23/18 12/24/18 15:00 23:00 07:00 Intake Total 0 ml 60 ml Balance 0 ml 60 ml Nutrition Consultation Dietary Evaluation: Recommendations by RD: PPN/TPN Comments: continue nutrition care order Expected Outcomes/Goals: to meet > 75% est nutr needs via TPN Malnutrition Findings: Body Fat Depletion (Non Severe: Mild Depletion Weight Status: Underweight BENITA LUTZ MD Dec 24, 2018 11:44
[2018-12-24] MEDS ORDERED: FUROSEMIDE 20 MG/2 ML VIAL. IVP ONE (11:45)
--- NOTE | 2018-12-24 12:06 | PDOC ---
Provider Note Provider Note SURG no new complaints drainage from superficial abscess has slowed d/w Dr Cisneros will I and D at bedside tomorrow with local anesthesia ANIA PATTON MD Dec 24, 2018 12:06
[2018-12-24] MEDS ORDERED: LIDOCAINE 1%/EPI 1:100,000 20 ML VIAL. INJ ONE (12:15)
[2018-12-24] MEDS ORDERED: SODIUM PHOSPHATE 20 MMOL in IV DEXTROSE 5% 250 ML IV ONE (13:00)
[2018-12-24] MEDS: TPN PER PHARMACY MC PRN (13:27)
--- NOTE | 2018-12-24 13:28 | NUR ---
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 -Serum magnesium high, reduce mag sulfate to 25 mEq/day. -Serum phos still low, give NaPhos 20 mmol bolus. Increase NaPhos in TPN to 15 mmol/day. -BMP, mag, phos tomorrow. R: Continue TPN at current rate and with above formula changes. Will monitor electrolytes, glucose, and tolerance to TPN. FUENTES ESPINAL [facility], 12/24/18 [id number]
[2018-12-24] MEDS: amLODIPine BESYLATE 5 MG TABLET PO SCH (13:41)
[2018-12-24 15:17] VITALS: BP 153/93
[2018-12-24] MEDS ORDERED: diphenhydrAMINE HCL 25 MG CAPSULE PO PRN (17:45)
[2018-12-24 19:53] VITALS: BP 147/82
[2018-12-24] MEDS ORDERED: [UNRECOGNIZED DRUG - OTHER] IV SCH ×11 (22:00)
[2018-12-24] MEDS ORDERED: AMINO ACID IV SCH ×11 (22:00)
[2018-12-24] MEDS ORDERED: DEXTROSE 70% IV SCH ×11 (22:00)
[2018-12-24] MEDS ORDERED: TOTAL PARENTERAL NUTRITION IV SCH ×11 (22:00)
[2018-12-24 23:34] VITALS: BP 128/80
[2018-12-25] VITALS (7 sets, daily range): BP systolic 121–162; BP diastolic 66–92
[2018-12-25] MEDS: PIPERACILLIN/TAZOBACTAM 3.375 GM in IV NORMAL SALINE 50ML 50 ML IV SCH ×5 (00:05→23:25)
[2018-12-25] MEDS: HYDROmorphone 2 MG/ML VIAL IV PRN ×2 (05:27→09:50)
[2018-12-25 05:53] LABS: BASO # 0.1 x10^3/uL (0.0-0.2); BASO % 1 % (0-3); EOS # 0.1 x10^3/uL (0.0-0.7); EOS % 2 % (0-3); HEMATOCRIT 27.8 % (36.0-47.0); HEMOGLOBIN 9.1 g/dL (12.0-15.5); LYMPH # 1.3 x10^3/uL (1.0-4.8); LYMPH % 22 % (24-48); MEAN CORPUSCULAR HEMOGLOBIN 30 pg (25-35); MEAN CORPUSCULAR HGB CONC 33 g/dL (31-37); MEAN CORPUSCULAR VOLUME 90 fL (79-100); MONO # 0.6 x10^3/uL (0.0-1.1); MONO % 10 % (0-9); NEUT # 4.1 x10^3/uL (1.8-7.7); NEUT % 66 % (31-73); PLATELET COUNT 400 x10^3/uL (140-400); RED BLOOD COUNT 3.09 x10^6/uL (3.50-5.40); RED CELL DISTRIBUTION WIDTH 17.4 % (11.5-14.5); WHITE BLOOD COUNT 6.2 x10^3/uL (4.0-11.0)
[2018-12-25 06:11] LABS: CALCIUM 8.3 mg/dL (8.5-10.1); CREATININE 0.6 mg/dL (0.6-1.0); GFR 122.2; MAGNESIUM 2.2 mg/dL (1.8-2.4)
[2018-12-25 06:13] LABS: POTASSIUM 5.2 mmol/L (3.5-5.1)
[2018-12-25] MEDS: PANTOPRAZOLE 40 MG TABLET.DR. PO SCH (08:33)
[2018-12-25] MEDS: LACTOBACILLUS RHAMNOSUS GG 1 CAPSULE. PO SCH ×2 (08:33→20:21)
[2018-12-25] MEDS: amLODIPine BESYLATE 5 MG TABLET PO SCH (08:34)
[2018-12-25] MEDS: LIDOCAINE/PRILOCAINE TOPICAL CREAM 5GM TUBE. TP SCH ×2 (09:50→20:22)
[2018-12-25] MEDS: ZINC OXIDE 20% TOPICAL OINTMENT 28GM TUBE. TP SCH ×2 (09:50→20:22)
--- NOTE | 2018-12-25 10:28 | PDOC ---
Infectious Disease Note Subjective Subjective feeling better abscess spontaneously drained Denies F/C ROS ROS per HPI Vital Sign Vital Signs Vital Signs Date Time Temp Pulse Resp B/P (MAP) Pulse Ox O2 Delivery O2 Flow Rate FiO2 12/25/18 10:13 16 Room Air 12/25/18 08:34 98 125/66 12/25/18 07:00 97.6 98 97.6 Physical Exam PHYSICAL EXAM GENERAL: Propped up in bed, alert, smiling LUNGS: Clear bilaterally. HEART: S1, S2. ABDOMEN: Soft, nondistended. Enterocutaneous fistula, Abscess ruptured, green drainage w/ food particles EXTREMITIES: Pedal edema DERMATOLOGIC: Warm to touch NEUROLOGIC: Alert and oriented x 3, grossly nonfocal. Power PICC without signs of complication. Labs Lab Laboratory Tests Test 12/25/18 05:25 White Blood Count 6.2 x10^3/uL (4.0-11.0) Red Blood Count 3.09 x10^6/uL (3.50-5.40) Hemoglobin 9.1 g/dL (12.0-15.5) Hematocrit 27.8 % (36.0-47.0) Mean Corpuscular Volume 90 fL (79-100) Mean Corpuscular Hemoglobin 30 pg (25-35) Mean Corpuscular Hemoglobin Concent 33 g/dL (31-37) Red Cell Distribution Width 17.4 % (11.5-14.5) Platelet Count 400 x10^3/uL (140-400) Neutrophils (%) (Auto) 66 % (31-73) Lymphocytes (%) (Auto) 22 % (24-48) Monocytes (%) (Auto) 10 % (0-9) Eosinophils (%) (Auto) 2 % (0-3) Basophils (%) (Auto) 1 % (0-3) Neutrophils # (Auto) 4.1 x10^3/uL (1.8-7.7) Lymphocytes # (Auto) 1.3 x10^3/uL (1.0-4.8) Monocytes # (Auto) 0.6 x10^3/uL (0.0-1.1) Eosinophils # (Auto) 0.1 x10^3/uL (0.0-0.7) Basophils # (Auto) 0.1 x10^3/uL (0.0-0.2) Sodium Level 141 mmol/L (136-145) Potassium Level 5.2 mmol/L (3.5-5.1) Chloride Level 110 mmol/L (98-107) Carbon Dioxide Level 28 mmol/L (21-32) Anion Gap 3 (6-14) Blood Urea Nitrogen 9 mg/dL (7-20) Creatinine 0.6 mg/dL (0.6-1.0) Estimated GFR (Cockcroft-Gault) 122.2 Glucose Level 103 mg/dL (70-99) Calcium Level 8.3 mg/dL (8.5-10.1) Phosphorus Level 2.6 mg/dL (2.6-4.7) Magnesium Level 2.2 mg/dL (1.8-2.4) Micro Microbiology 12/21/18 Blood Culture - Preliminary, Resulted NO GROWTH AFTER 2 DAYS Abdominal abscess GRAM STAIN RES 2 Final Comment Few gram negative rods. Objective Assessment Fever at home, afebrile here. Abdominal pain. Abdominal wall abscesses, spontaneously drained. GNR on gram stain History of enterocutaneous and vesicoenteric fistula, chronic with multiple surgeries, on chronic TPN. History of recurrent urinary tract infections, had 9 infections, Nausea and vomiting. Diarrhea. c. diff neg, 12/22 Plan Plan of Care Discontinue Zyvox (12/22) Cont Zosyn (12/22) - f/u GNR - clinically looks better. Probiotics General Surgery following f/u cultures Local wound care. D/w nursing Attending Co-Sign Attending Co-Sign The patient was seen and interviewed as well as examined at the bedside. The chart was reviewed. The case was discussed. Agree with the plan of care. MARICARMEN COLEMAN APRN Dec 25, 2018 10:28 ABBY MOTT MD Dec 25, 2018 13:55
--- NOTE | 2018-12-25 11:50 | PDOC ---
SURGICAL PROGRESS NOTE Subjective feels better after popping abscess Vital Signs Vital Signs Date Time Temp Pulse Resp B/P (MAP) Pulse Ox O2 Delivery O2 Flow Rate FiO2 12/25/18 10:13 16 Room Air 12/25/18 08:34 98 125/66 12/25/18 07:00 97.6 98 97.6 I&O Intake and Output 12/25/18 07:00 Intake Total 1500 ml Output Total 350 ml Balance 1150 ml Intake Oral 1500 ml Stool Total 350 ml # Voids 2 PATIENT HAS A GUPTA: No General: Alert, No acute distress Abdomen: Other (previous abscess has been opened and drained spontaneously) Labs Laboratory Tests Test 12/24/18 06:30 12/25/18 05:25 White Blood Count 7.4 x10^3/uL (4.0-11.0) 6.2 x10^3/uL (4.0-11.0) Red Blood Count 3.25 x10^6/uL (3.50-5.40) 3.09 x10^6/uL (3.50-5.40) Hemoglobin 9.6 g/dL (12.0-15.5) 9.1 g/dL (12.0-15.5) Hematocrit 29.1 % (36.0-47.0) 27.8 % (36.0-47.0) Mean Corpuscular Volume 90 fL (79-100) 90 fL (79-100) Mean Corpuscular Hemoglobin 30 pg (25-35) 30 pg (25-35) Mean Corpuscular Hemoglobin Concent 33 g/dL (31-37) 33 g/dL (31-37) Red Cell Distribution Width 17.2 % (11.5-14.5) 17.4 % (11.5-14.5) Platelet Count 417 x10^3/uL (140-400) 400 x10^3/uL (140-400) Neutrophils (%) (Auto) 83 % (31-73) 66 % (31-73) Lymphocytes (%) (Auto) 9 % (24-48) 22 % (24-48) Monocytes (%) (Auto) 8 % (0-9) 10 % (0-9) Eosinophils (%) (Auto) 1 % (0-3) 2 % (0-3) Basophils (%) (Auto) 1 % (0-3) 1 % (0-3) Neutrophils # (Auto) 6.1 x10^3/uL (1.8-7.7) 4.1 x10^3/uL (1.8-7.7) Lymphocytes # (Auto) 0.6 x10^3/uL (1.0-4.8) 1.3 x10^3/uL (1.0-4.8) Monocytes # (Auto) 0.6 x10^3/uL (0.0-1.1) 0.6 x10^3/uL (0.0-1.1) Eosinophils # (Auto) 0.1 x10^3/uL (0.0-0.7) 0.1 x10^3/uL (0.0-0.7) Basophils # (Auto) 0.0 x10^3/uL (0.0-0.2) 0.1 x10^3/uL (0.0-0.2) Sodium Level 142 mmol/L (136-145) 141 mmol/L (136-145) Potassium Level 4.8 mmol/L (3.5-5.1) 5.2 mmol/L (3.5-5.1) Chloride Level 112 mmol/L (98-107) 110 mmol/L (98-107) Carbon Dioxide Level 26 mmol/L (21-32) 28 mmol/L (21-32) Anion Gap 4 (6-14) 3 (6-14) Blood Urea Nitrogen 9 mg/dL (7-20) 9 mg/dL (7-20) Creatinine 0.6 mg/dL (0.6-1.0) 0.6 mg/dL (0.6-1.0) Estimated GFR (Cockcroft-Gault) 122.2 122.2 Glucose Level 168 mg/dL (70-99) 103 mg/dL (70-99) Calcium Level 8.2 mg/dL (8.5-10.1) 8.3 mg/dL (8.5-10.1) Phosphorus Level 2.2 mg/dL (2.6-4.7) 2.6 mg/dL (2.6-4.7) Magnesium Level 2.7 mg/dL (1.8-2.4) 2.2 mg/dL (1.8-2.4) Laboratory Tests Test 12/25/18 05:25 White Blood Count 6.2 x10^3/uL (4.0-11.0) Red Blood Count 3.09 x10^6/uL (3.50-5.40) Hemoglobin 9.1 g/dL (12.0-15.5) Hematocrit 27.8 % (36.0-47.0) Mean Corpuscular Volume 90 fL (79-100) Mean Corpuscular Hemoglobin 30 pg (25-35) Mean Corpuscular Hemoglobin Concent 33 g/dL (31-37) Red Cell Distribution Width 17.4 % (11.5-14.5) Platelet Count 400 x10^3/uL (140-400) Neutrophils (%) (Auto) 66 % (31-73) Lymphocytes (%) (Auto) 22 % (24-48) Monocytes (%) (Auto) 10 % (0-9) Eosinophils (%) (Auto) 2 % (0-3) Basophils (%) (Auto) 1 % (0-3) Neutrophils # (Auto) 4.1 x10^3/uL (1.8-7.7) Lymphocytes # (Auto) 1.3 x10^3/uL (1.0-4.8) Monocytes # (Auto) 0.6 x10^3/uL (0.0-1.1) Eosinophils # (Auto) 0.1 x10^3/uL (0.0-0.7) Basophils # (Auto) 0.1 x10^3/uL (0.0-0.2) Sodium Level 141 mmol/L (136-145) Potassium Level 5.2 mmol/L (3.5-5.1) Chloride Level 110 mmol/L (98-107) Carbon Dioxide Level 28 mmol/L (21-32) Anion Gap 3 (6-14) Blood Urea Nitrogen 9 mg/dL (7-20) Creatinine 0.6 mg/dL (0.6-1.0) Estimated GFR (Cockcroft-Gault) 122.2 Glucose Level 103 mg/dL (70-99) Calcium Level 8.3 mg/dL (8.5-10.1) Phosphorus Level 2.6 mg/dL (2.6-4.7) Magnesium Level 2.2 mg/dL (1.8-2.4) Problem List Problems Medical Problems: (1) Fever Status: Acute (2) Severe protein-calorie malnutrition Status: Acute Assessment/Plan abdominal wall abscess/ECF adequately drained wound care ANIA PATTON MD Dec 25, 2018 11:50
--- NOTE | 2018-12-25 12:06 | PDOC ---
PROGRESS NOTES Subjective Subjective abdominal wall abscess spontaneously opened this morning and draining purulent material. blood cultures negative. abdominal abscess culture growing GNRs. drowsy from iv dilaudid 4 mg Objective Objective Vital Signs Date Time Temp Pulse Resp B/P (MAP) Pulse Ox O2 Delivery O2 Flow Rate FiO2 12/25/18 10:13 16 Room Air 12/25/18 08:34 98 125/66 12/25/18 07:00 97.6 98 97.6 Intake and Output 12/25/18 06:59 Intake Total 1500 ml Output Total 350 ml Balance 1150 ml Intake Oral 1500 ml Stool Total 350 ml # Voids 2 Physical Exam Heart: Regular rate, Normal S1, Normal S2 Extremities: No edema General: Alert HEENT: Atraumatic Lungs: Clear to auscultation Neuro: Normal speech, Other (drowsy) Psych/Mental Status: Mood NL Skin: No rashes Assessment Assessment Problems1. Fever resolved She does not have leukocytosis or lactic acidosis 2. Severe hypokalemia. resolved 3. Severe hypomagnesemia.resolved 4. Enterocutaneous fistula. 5. possible sq abdominal abscesses 6. Severe protein-calorie malnutrition. 7. Enterovesical fistula. abdominal wall abscess. spontaneously draining Medical Problems: (1) Fever Status: Acute (2) Severe protein-calorie malnutrition Status: Acute Plan Plan of Care decrease kcl in TPN . discussed with pharmacist decrease iv dilaudid. she appears over medicated on 4 mg iv dilaudid. await final culture results continue zyvox and zosyn lab tomorrow continue amlodipine Comment Review of Relevant I have reviewed the following items lucila (where applicable) has been applied. Labs Laboratory Tests Test 12/24/18 06:30 12/25/18 05:25 White Blood Count 7.4 x10^3/uL (4.0-11.0) 6.2 x10^3/uL (4.0-11.0) Red Blood Count 3.25 x10^6/uL (3.50-5.40) 3.09 x10^6/uL (3.50-5.40) Hemoglobin 9.6 g/dL (12.0-15.5) 9.1 g/dL (12.0-15.5) Hematocrit 29.1 % (36.0-47.0) 27.8 % (36.0-47.0) Mean Corpuscular Volume 90 fL (79-100) 90 fL (79-100) Mean Corpuscular Hemoglobin 30 pg (25-35) 30 pg (25-35) Mean Corpuscular Hemoglobin Concent 33 g/dL (31-37) 33 g/dL (31-37) Red Cell Distribution Width 17.2 % (11.5-14.5) 17.4 % (11.5-14.5) Platelet Count 417 x10^3/uL (140-400) 400 x10^3/uL (140-400) Neutrophils (%) (Auto) 83 % (31-73) 66 % (31-73) Lymphocytes (%) (Auto) 9 % (24-48) 22 % (24-48) Monocytes (%) (Auto) 8 % (0-9) 10 % (0-9) Eosinophils (%) (Auto) 1 % (0-3) 2 % (0-3) Basophils (%) (Auto) 1 % (0-3) 1 % (0-3) Neutrophils # (Auto) 6.1 x10^3/uL (1.8-7.7) 4.1 x10^3/uL (1.8-7.7) Lymphocytes # (Auto) 0.6 x10^3/uL (1.0-4.8) 1.3 x10^3/uL (1.0-4.8) Monocytes # (Auto) 0.6 x10^3/uL (0.0-1.1) 0.6 x10^3/uL (0.0-1.1) Eosinophils # (Auto) 0.1 x10^3/uL (0.0-0.7) 0.1 x10^3/uL (0.0-0.7) Basophils # (Auto) 0.0 x10^3/uL (0.0-0.2) 0.1 x10^3/uL (0.0-0.2) Sodium Level 142 mmol/L (136-145) 141 mmol/L (136-145) Potassium Level 4.8 mmol/L (3.5-5.1) 5.2 mmol/L (3.5-5.1) Chloride Level 112 mmol/L (98-107) 110 mmol/L (98-107) Carbon Dioxide Level 26 mmol/L (21-32) 28 mmol/L (21-32) Anion Gap 4 (6-14) 3 (6-14) Blood Urea Nitrogen 9 mg/dL (7-20) 9 mg/dL (7-20) Creatinine 0.6 mg/dL (0.6-1.0) 0.6 mg/dL (0.6-1.0) Estimated GFR (Cockcroft-Gault) 122.2 122.2 Glucose Level 168 mg/dL (70-99) 103 mg/dL (70-99) Calcium Level 8.2 mg/dL (8.5-10.1) 8.3 mg/dL (8.5-10.1) Phosphorus Level 2.2 mg/dL (2.6-4.7) 2.6 mg/dL (2.6-4.7) Magnesium Level 2.7 mg/dL (1.8-2.4) 2.2 mg/dL (1.8-2.4) Laboratory Tests Test 12/25/18 05:25 White Blood Count 6.2 x10^3/uL (4.0-11.0) Red Blood Count 3.09 x10^6/uL (3.50-5.40) Hemoglobin 9.1 g/dL (12.0-15.5) Hematocrit 27.8 % (36.0-47.0) Mean Corpuscular Volume 90 fL (79-100) Mean Corpuscular Hemoglobin 30 pg (25-35) Mean Corpuscular Hemoglobin Concent 33 g/dL (31-37) Red Cell Distribution Width 17.4 % (11.5-14.5) Platelet Count 400 x10^3/uL (140-400) Neutrophils (%) (Auto) 66 % (31-73) Lymphocytes (%) (Auto) 22 % (24-48) Monocytes (%) (Auto) 10 % (0-9) Eosinophils (%) (Auto) 2 % (0-3) Basophils (%) (Auto) 1 % (0-3) Neutrophils # (Auto) 4.1 x10^3/uL (1.8-7.7) Lymphocytes # (Auto) 1.3 x10^3/uL (1.0-4.8) Monocytes # (Auto) 0.6 x10^3/uL (0.0-1.1) Eosinophils # (Auto) 0.1 x10^3/uL (0.0-0.7) Basophils # (Auto) 0.1 x10^3/uL (0.0-0.2) Sodium Level 141 mmol/L (136-145) Potassium Level 5.2 mmol/L (3.5-5.1) Chloride Level 110 mmol/L (98-107) Carbon Dioxide Level 28 mmol/L (21-32) Anion Gap 3 (6-14) Blood Urea Nitrogen 9 mg/dL (7-20) Creatinine 0.6 mg/dL (0.6-1.0) Estimated GFR (Cockcroft-Gault) 122.2 Glucose Level 103 mg/dL (70-99) Calcium Level 8.3 mg/dL (8.5-10.1) Phosphorus Level 2.6 mg/dL (2.6-4.7) Magnesium Level 2.2 mg/dL (1.8-2.4) Microbiology 12/21/18 Blood Culture - Preliminary, Resulted NO GROWTH AFTER 3 DAYS 12/22/18 Anaerobic/Aerobic Culture, Resulted Pending 12/22/18 Anaerobic Culture Result 1 (ROYA), Resulted Pending 12/22/18 Aerobic Culture, Resulted Pending 12/22/18 Aerobic Culture Result 1 (ROYA), Resulted Pending 12/22/18 Gram Stain - Final, Resulted 12/22/18 Gram Stain Result 1 (ROYA) - Final, Resulted 12/22/18 Gram Stain Result 2 (ROYA) - Final, Resulted Medications Current Medications Piperacillin Sod/ Tazobactam Sod 4.5 gm/Sodium Chloride 100 ml @ 200 mls/hr 1X ONCE IV Last administered on 12/21/18at 22:23; Start 12/21/18 at 22:00; Stop 12/21/18 at 22:29; Status DC Vancomycin HCl (Vanco Per Pharmacy) 1 each 1X ONCE MC ; Start 12/21/18 at 21:45; Stop 12/21/18 at 21:46; Status UNV Sodium Chloride 1,000 ml @ 1,320 mls/hr Q46M IV Last administered on 12/21/18at 22:24; Start 12/21/18 at 21:41; Stop 12/21/18 at 22:40; Status DC Hydromorphone HCl (Dilaudid) 1 mg PRN Q2HR PRN IVP PAIN Last administered on 12/22/18 10:03; Start 12/21/18 at 22:30; Stop 12/22/18 at 12:24; Status DC Potassium Chloride/Water 50 ml @ 50 mls/hr Q1H IV Last administered on 12/22/18at 01:09; Start 12/21/18 at 23:00; Stop 12/22/18 at 00:59; Status DC Potassium Chloride (Klor-Con) 40 meq 1X ONCE PO ; Start 12/21/18 at 23:00; Stop 12/21/18 at 23:01; Status DC Linezolid/Dextrose 300 ml @ 300 mls/hr Q12HR IV Last administered on 12/25/18at 08:31; Start 12/22/18 at 09:00 Ondansetron HCl (Zofran) 4 mg PRN Q8HRS PRN IV NAUSEA/VOMITING Last administered on 12/22/18at 11:38; Start 12/21/18 at 23:30; Stop 12/22/18 at 23:29; Status DC Fentanyl Citrate (Fentanyl 2ml Vial) 50 mcg PRN Q1HR PRN IV PAIN; Start 12/21/18 at 23:30; Stop 12/22/18 at 23:29; Status DC Sodium Chloride 1,000 ml @ 100 mls/hr Q10H IV Last administered on 12/22/18at 11:37; Start 12/21/18 at 23:30; Stop 12/22/18 at 12:24; Status DC Magnesium Sulfate 3 gm/Dextrose 106 ml @ 35.333 mls/ hr 1X ONCE IV Last administered on 12/22/18at 00:05; Start 12/21/18 at 23:45; Stop 12/22/18 at 02:44; Status DC Piperacillin Sod/ Tazobactam Sod 3.375 gm/Sodium Chloride 50 ml @ 100 mls/hr Q6HRS IV Last administered on 12/25/18at 05:28; Start 12/22/18 at 12:00 Hydromorphone HCl (Dilaudid) 2 mg PRN Q4HRS PRN IVP MODERATE PAIN Last administered on 12/24/18at 10:52; Start 12/22/18 at 12:15 Hydromorphone HCl (Dilaudid) 4 mg PRN Q4HRS PRN IV SEVERE PAIN 7-10 Last administered on 12/25/18at 09:50; Start 12/22/18 at 12:15 Acetaminophen (Tylenol) 650 mg PRN Q6HRS PRN PO MILD PAIN / TEMP; Start 12/22/18 at 12:15 Ondansetron HCl (Zofran) 4 mg PRN Q6HRS PRN IV NAUSEA/VOMITING, 1st choice; Start 12/22/18 at 12:15 Lidocaine/ Prilocaine (Emla) 1 sang BID TP Last administered on 12/25/18 09:50; Start 12/22/18 at 21:00 Zinc Oxide (Zinc Oxide 20% Topical) 1 sang BID TP Last administered on 12/25/18at 09:50; Start 12/22/18 at 21:00 Lorazepam (Ativan) 0.5 mg PRN Q6HRS PRN PO ANXIETY / AGITATION; Start 12/22/18 at 12:15 Zolpidem Tartrate (Ambien) 5 mg PRN QHS PRN PO INSOMNIA; Start 12/22/18 at 12:15 Magnesium Sulfate 50 ml @ 25 mls/hr 1X ONCE IV Last administered on 12/22/18at 13:40; Start 12/22/18 at 14:00; Stop 12/22/18 at 15:59; Status DC Potassium Chloride/Dextrose/ Sod Cl 1,000 ml @ 80 mls/hr [id number] IV Last administered on 12/22/18at 12:56; Start 12/22/18 at 13:00; Stop 12/22/18 at 22:00; Status DC Lactobacillus Rhamnosus (Culturelle) 1 cap BID PO Last administered on 12/25/18at 08:33; Start 12/22/18 at 21:00 Sodium Chloride 220 meq/Potassium Chloride 100 meq/ Potassium Phosphate 6.81 mmol/Magnesium Sulfate 40 meq/ Calcium Gluconate 14 meq/ Multivitamins 10 ml/Chromium/ Copper/Manganese/ Seleni/Zn 1 ml/ Sodium Phosphate 9.99 mmol/Total Parenteral Nutrition/Amino Acids/Dextrose/ Fat Emuls... 1,920 ml @ 80 mls/hr TPN CONT IV Last administered on 12/22/18 21:43; Start 12/22/18 at 22:00; Stop 12/23/18 at 21:59; Status DC Info (Tpn Per Pharmacy) 1 each PRN DAILY PRN MC SEE COMMENTS Last administered on 12/24/18at 13:27; Start 12/22/18 at 14:15 Info (Tpn Per Pharmacy) 1 each PRN DAILY PRN MC SEE COMMENTS; Start 12/22/18 at 14:30; Status Cancel Pantoprazole Sodium (Protonix) 40 mg DAILYAC PO Last administered on 12/25/18at 08:33; Start 12/23/18 at 07:30 Ondansetron HCl (Zofran) 8 mg PRN Q6HRS PRN IV NAUSEA/VOMITING, 2nd choice Last administered on 12/23/18 18:08; Start 12/22/18 at 17:30 Potassium Chloride/Water 50 ml @ 50 mls/hr Q1H IV Last administered on 12/22/18 20:14; Start 12/22/18 at 17:45; Stop 12/22/18 at 19:44; Status DC Sodium Chloride 200 meq/Potassium Chloride 100 meq/ Potassium Phosphate 13.6 mmol/Magnesium Sulfate 35 meq/ Calcium Gluconate 14 meq/ Multivitamins 10 ml/Chromium/ Copper/Manganese/ Seleni/Zn 1 ml/ Sodium Phosphate 9.99 mmol/Total Parenteral Nutrition/Amino Acids/Dextrose/ Fat Emuls... 1,920 ml @ 80 mls/hr TPN CONT IV Last administered on 12/23/18at 20:58; Start 12/23/18 at 22:00; Stop 12/24/18 at 21:59; Status DC Hydromorphone HCl (Dilaudid) 2 mg 1X ONCE IV Last administered on 12/23/18 14:26; Start 12/23/18 at 14:30; Stop 12/23/18 at 14:31; Status DC Amlodipine Besylate (Norvasc) 5 mg DAILY PO Last administered on 12/25/18at 08:34; Start 12/24/18 at 13:00 Furosemide (Lasix) 20 mg 1X ONCE IVP Last administered on 12/24/18at 11:59; Start 12/24/18 at 11:45; Stop 12/24/18 at 11:48; Status DC Sodium Phosphate 20 mmol/Dextrose 256.6667 ml @ 64.167 m... 1X ONCE IV Last administered on 12/24/18at 13:40; Start 12/24/18 at 13:00; Stop 12/24/18 at 16:59; Status DC Lidocaine/ Epinephrine (LIDOCAINE 1%-EPI 1:100,000 Multi-Dose) 20 ml 1X ONCE INJ ; Start 12/24/18 at 12:15; Stop 12/24/18 at 12:16; Status DC Sodium Chloride 200 meq/Sodium Phosphate 15 mmol/ Potassium Chloride 50 meq/ Potassium Phosphate 13.6 mmol/Magnesium Sulfate 25 meq/ Calcium Gluconate 14 meq/ Multivitamins 10 ml/Chromium/ Copper/Manganese/ Seleni/Zn 1 ml/ Total Parenteral Nutrition/Amino Acids/Dextrose/ Fat Emuls... 1,920 ml @ 80 mls/hr TPN CONT IV Last administered on 12/24/18at 20:54; Start 12/24/18 at 22:00; Stop 12/25/18 at 21:59 Diphenhydramine HCl (Benadryl) 25 mg PRN Q6HRS PRN PO ITCHING Last administered on 12/24/18at 17:53; Start 12/24/18 at 17:45 Active Scripts Active Nystatin 15 Gm Cream..g. 1 Sang TP BID [Pantoprazole] 40 MG Tablet.dr 40 Mg PO DAILYAC 30 Days Zinc Oxide 56.7 Gm Oint...g. 1 Sang TP BID Ambien (Zolpidem Tartrate) 5 Mg Tablet 5 Mg PO PRN QHS PRN 30 Days [Tpn Per Pharmacy] 1 EACH Each 1 Each PRN DAILY PRN TPN at 85cc/hour Sertraline Hcl 50 Mg Tablet 50 Mg PO DAILY 30 Days Lidocaine 35.44 Gm Oint...g. 1 Sang TP BID Reported Zofran Odt (Ondansetron) 4 Mg Tab.rapdis 1 Tab SL PRN Q8HRS PRN Zinc Oxide 56.7 Gm Oint...g. 56.7 Gm TP PRN BID Dilaudid (Hydromorphone Hcl) 2 Mg Tablet 1 Tab PO PRN QID PRN Lorazepam 0.5 Mg Tablet 0.5 Mg PO Q6HRS PRN Vitals/I & O Vital Sign - Last 24 Hours 12/24/18 12/24/18 12/24/18 12/24/18 13:41 14:24 15:17 19:53 Temp 97.6 98.9 97.6 98.9 Pulse 115 113 123 Resp 18 18 B/P (MAP) 157/95 153/93 (113) 147/82 (103) Pulse Ox 97 98 O2 Delivery Room Air Room Air Room Air 12/24/18 12/24/18 12/24/18 12/24/18 20:00 21:04 22:38 23:34 Temp 98.2 98.3 98.2 98.3 Pulse 125 Resp 18 B/P (MAP) 128/80 (96) Pulse Ox 98 O2 Delivery Room Air Room Air Room Air 12/25/18 12/25/18 12/25/18 12/25/18 03:36 05:27 07:00 08:00 Temp 98.4 97.6 98.4 97.6 Pulse 103 98 Resp 18 18 B/P (MAP) 161/92 (115) 125/66 (85) Pulse Ox 93 98 O2 Delivery Room Air Room Air Room Air Room Air 12/25/18 12/25/18 12/25/18 08:34 09:50 10:13 Pulse 98 Resp 16 16 B/P (MAP) 125/66 O2 Delivery Room Air Room Air Intake and Output 12/24/18 12/24/18 12/25/18 14:59 22:59 06:59 Intake Total 500 ml 550 ml 450 ml Output Total 350 ml Balance 500 ml 550 ml 100 ml Nutrition Consultation Dietary Evaluation: Recommendations by RD: PPN/TPN Comments: continue nutrition care order Expected Outcomes/Goals: to meet > 75% est nutr needs via TPN Malnutrition Findings: Body Fat Depletion (Non Severe: Mild Depletion Weight Status: Underweight BENITA LUTZ MD Dec 25, 2018 12:06
[2018-12-25] MEDS: TPN PER PHARMACY MC PRN (13:06)
--- NOTE | 2018-12-25 13:07 | NUR ---
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 -CMP, mag, phos tomorrow. R: Continue TPN @ current rate and with above formula changes. Will monitor electrolytes, glucose, and tolerance to TPN. FUENTES ESPINAL [facility], 12/25/18 [id number]
--- NOTE | 2018-12-25 13:30 | PDOC ---
G I PROGRESS NOTE Subjective Feeling better today. Denies N, V, D. Physical Exam Lungs clear. RRR Abdomen soft, not distended. Prior "pointing" area has drained. Review of Relevant I have reviewed the following items lucila (where applicable) has been applied. Labs Laboratory Tests Test 12/24/18 06:30 12/25/18 05:25 White Blood Count 7.4 x10^3/uL (4.0-11.0) 6.2 x10^3/uL (4.0-11.0) Red Blood Count 3.25 x10^6/uL (3.50-5.40) 3.09 x10^6/uL (3.50-5.40) Hemoglobin 9.6 g/dL (12.0-15.5) 9.1 g/dL (12.0-15.5) Hematocrit 29.1 % (36.0-47.0) 27.8 % (36.0-47.0) Mean Corpuscular Volume 90 fL (79-100) 90 fL (79-100) Mean Corpuscular Hemoglobin 30 pg (25-35) 30 pg (25-35) Mean Corpuscular Hemoglobin Concent 33 g/dL (31-37) 33 g/dL (31-37) Red Cell Distribution Width 17.2 % (11.5-14.5) 17.4 % (11.5-14.5) Platelet Count 417 x10^3/uL (140-400) 400 x10^3/uL (140-400) Neutrophils (%) (Auto) 83 % (31-73) 66 % (31-73) Lymphocytes (%) (Auto) 9 % (24-48) 22 % (24-48) Monocytes (%) (Auto) 8 % (0-9) 10 % (0-9) Eosinophils (%) (Auto) 1 % (0-3) 2 % (0-3) Basophils (%) (Auto) 1 % (0-3) 1 % (0-3) Neutrophils # (Auto) 6.1 x10^3/uL (1.8-7.7) 4.1 x10^3/uL (1.8-7.7) Lymphocytes # (Auto) 0.6 x10^3/uL (1.0-4.8) 1.3 x10^3/uL (1.0-4.8) Monocytes # (Auto) 0.6 x10^3/uL (0.0-1.1) 0.6 x10^3/uL (0.0-1.1) Eosinophils # (Auto) 0.1 x10^3/uL (0.0-0.7) 0.1 x10^3/uL (0.0-0.7) Basophils # (Auto) 0.0 x10^3/uL (0.0-0.2) 0.1 x10^3/uL (0.0-0.2) Sodium Level 142 mmol/L (136-145) 141 mmol/L (136-145) Potassium Level 4.8 mmol/L (3.5-5.1) 5.2 mmol/L (3.5-5.1) Chloride Level 112 mmol/L (98-107) 110 mmol/L (98-107) Carbon Dioxide Level 26 mmol/L (21-32) 28 mmol/L (21-32) Anion Gap 4 (6-14) 3 (6-14) Blood Urea Nitrogen 9 mg/dL (7-20) 9 mg/dL (7-20) Creatinine 0.6 mg/dL (0.6-1.0) 0.6 mg/dL (0.6-1.0) Estimated GFR (Cockcroft-Gault) 122.2 122.2 Glucose Level 168 mg/dL (70-99) 103 mg/dL (70-99) Calcium Level 8.2 mg/dL (8.5-10.1) 8.3 mg/dL (8.5-10.1) Phosphorus Level 2.2 mg/dL (2.6-4.7) 2.6 mg/dL (2.6-4.7) Magnesium Level 2.7 mg/dL (1.8-2.4) 2.2 mg/dL (1.8-2.4) Laboratory Tests Test 12/25/18 05:25 White Blood Count 6.2 x10^3/uL (4.0-11.0) Red Blood Count 3.09 x10^6/uL (3.50-5.40) Hemoglobin 9.1 g/dL (12.0-15.5) Hematocrit 27.8 % (36.0-47.0) Mean Corpuscular Volume 90 fL (79-100) Mean Corpuscular Hemoglobin 30 pg (25-35) Mean Corpuscular Hemoglobin Concent 33 g/dL (31-37) Red Cell Distribution Width 17.4 % (11.5-14.5) Platelet Count 400 x10^3/uL (140-400) Neutrophils (%) (Auto) 66 % (31-73) Lymphocytes (%) (Auto) 22 % (24-48) Monocytes (%) (Auto) 10 % (0-9) Eosinophils (%) (Auto) 2 % (0-3) Basophils (%) (Auto) 1 % (0-3) Neutrophils # (Auto) 4.1 x10^3/uL (1.8-7.7) Lymphocytes # (Auto) 1.3 x10^3/uL (1.0-4.8) Monocytes # (Auto) 0.6 x10^3/uL (0.0-1.1) Eosinophils # (Auto) 0.1 x10^3/uL (0.0-0.7) Basophils # (Auto) 0.1 x10^3/uL (0.0-0.2) Sodium Level 141 mmol/L (136-145) Potassium Level 5.2 mmol/L (3.5-5.1) Chloride Level 110 mmol/L (98-107) Carbon Dioxide Level 28 mmol/L (21-32) Anion Gap 3 (6-14) Blood Urea Nitrogen 9 mg/dL (7-20) Creatinine 0.6 mg/dL (0.6-1.0) Estimated GFR (Cockcroft-Gault) 122.2 Glucose Level 103 mg/dL (70-99) Calcium Level 8.3 mg/dL (8.5-10.1) Phosphorus Level 2.6 mg/dL (2.6-4.7) Magnesium Level 2.2 mg/dL (1.8-2.4) Microbiology 12/21/18 Blood Culture - Preliminary, Resulted NO GROWTH AFTER 3 DAYS 12/22/18 Anaerobic/Aerobic Culture, Resulted Pending 12/22/18 Anaerobic Culture Result 1 (ROYA), Resulted Pending 12/22/18 Aerobic Culture, Resulted Pending 12/22/18 Aerobic Culture Result 1 (ROYA), Resulted Pending 12/22/18 Gram Stain - Final, Resulted 12/22/18 Gram Stain Result 1 (ROYA) - Final, Resulted 12/22/18 Gram Stain Result 2 (ROYA) - Final, Resulted Vitals/I & O Vital Sign - Last 24 Hours 12/24/18 12/24/18 12/24/18 12/24/18 13:41 14:24 15:17 19:53 Temp 97.6 98.9 97.6 98.9 Pulse 115 113 123 Resp 18 18 B/P (MAP) 157/95 153/93 (113) 147/82 (103) Pulse Ox 97 98 O2 Delivery Room Air Room Air Room Air 12/24/18 12/24/18 12/24/18 12/24/18 20:00 21:04 22:38 23:34 Temp 98.2 98.3 98.2 98.3 Pulse 125 Resp 18 B/P (MAP) 128/80 (96) Pulse Ox 98 O2 Delivery Room Air Room Air Room Air 12/25/18 12/25/18 12/25/18 12/25/18 03:36 05:27 07:00 08:00 Temp 98.4 97.6 98.4 97.6 Pulse 103 98 Resp 18 18 B/P (MAP) 161/92 (115) 125/66 (85) Pulse Ox 93 98 O2 Delivery Room Air Room Air Room Air Room Air 12/25/18 12/25/18 12/25/18 12/25/18 08:34 09:50 10:13 11:00 Temp 97.5 97.5 Pulse 98 103 Resp 16 16 18 B/P (MAP) 125/66 121/88 (99) Pulse Ox 99 O2 Delivery Room Air Room Air Room Air Intake and Output 12/24/18 12/24/18 12/25/18 15:00 23:00 07:00 Intake Total 500 ml 550 ml 450 ml Output Total 350 ml Balance 500 ml 550 ml 100 ml Problem List Problems Medical Problems: (1) Fever Status: Acute (2) Severe protein-calorie malnutrition Status: Acute Assessment Seems improved GI-garcia. Plan of Care: Continue current Tx, Mgmt Plan of Care Note Observe. BENITA CALVILLO MD Dec 25, 2018 13:30
[2018-12-25] MEDS: HYDROmorphone 2 MG/ML VIAL IVP PRN ×4 (13:58→23:25)
[2018-12-25] MEDS ORDERED: AMINO ACID IV SCH ×11 (22:00)
[2018-12-25] MEDS ORDERED: [UNRECOGNIZED DRUG - OTHER] IV SCH ×11 (22:00)
[2018-12-25] MEDS ORDERED: DEXTROSE 70% IV SCH ×11 (22:00)
[2018-12-25] MEDS ORDERED: TOTAL PARENTERAL NUTRITION IV SCH ×11 (22:00)
[2018-12-26 03:24] VITALS: BP 129/67
[2018-12-26] MEDS: HYDROmorphone 2 MG/ML VIAL IVP PRN ×4 (03:44→21:36)
--- NOTE | 2018-12-26 04:12 | NUR ---
Pt woke up this am with severe pain and states will need to talk to Physician for pain control. Pt informed earlier of her pain medication being 2mg every 4 hours for pain control since pt was sedated and difficult to wake up. Pt states sometimes her pain can be really severe, pt states she does not want to abuse the pain medication and does not look at the time for pain meds she just wants her pain to be managed. Called Dr. Cisneros to see if the frequency could be changed on her medication and Physician ordered 4mg every 4 hours with the 2mg as well to alternate between 2-4mg for pain control. Pt verbalized understanding.
[2018-12-26] MEDS: PIPERACILLIN/TAZOBACTAM 3.375 GM in IV NORMAL SALINE 50ML 50 ML IV SCH ×3 (06:24→17:48)
[2018-12-26 06:54] LABS: ALBUMIN 1.3 g/dL (3.4-5.0); ALBUMIN/GLOBULIN RATIO 0.2 (1.0-1.7); CALCIUM 8.3 mg/dL (8.5-10.1); CREATININE 0.6 mg/dL (0.6-1.0); GFR 122.2; MAGNESIUM 1.9 mg/dL (1.8-2.4); PHOSPHORUS 2.4 mg/dL (2.6-4.7); POTASSIUM 4.8 mmol/L (3.5-5.1); TOTAL BILIRUBIN 0.2 mg/dL (0.2-1.0); TOTAL PROTEIN 6.8 g/dL (6.4-8.2)
[2018-12-26 07:00] VITALS: BP 139/95
[2018-12-26] MEDS: LACTOBACILLUS RHAMNOSUS GG 1 CAPSULE. PO SCH ×2 (08:23→21:35)
[2018-12-26] MEDS: PANTOPRAZOLE 40 MG TABLET.DR. PO SCH (08:23)
[2018-12-26] MEDS: amLODIPine BESYLATE 5 MG TABLET PO SCH (08:24)
--- NOTE | 2018-12-26 09:10 | PDOC ---
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 12/26/18 0910: SURGICAL PROGRESS NOTE Subjective wounds are draining pain improved Vital Signs Vital Signs Date Time Temp Pulse Resp B/P (MAP) Pulse Ox O2 Delivery O2 Flow Rate FiO2 12/26/18 08:24 103 139/95 12/26/18 08:23 19 99 Room Air 12/26/18 07:00 97.9 97.9 I&O Intake and Output 12/26/18 07:00 Intake Total 1250 ml Output Total 600 ml Balance 650 ml Intake Oral 1250 ml Output Urine Total 600 ml General: Alert, Oriented X3, Cooperative, No acute distress Abdomen: Soft, Other (wounds with drainage) Labs Laboratory Tests Test 12/25/18 05:25 12/26/18 06:20 White Blood Count 6.2 x10^3/uL (4.0-11.0) Red Blood Count 3.09 x10^6/uL (3.50-5.40) Hemoglobin 9.1 g/dL (12.0-15.5) Hematocrit 27.8 % (36.0-47.0) Mean Corpuscular Volume 90 fL (79-100) Mean Corpuscular Hemoglobin 30 pg (25-35) Mean Corpuscular Hemoglobin Concent 33 g/dL (31-37) Red Cell Distribution Width 17.4 % (11.5-14.5) Platelet Count 400 x10^3/uL (140-400) Neutrophils (%) (Auto) 66 % (31-73) Lymphocytes (%) (Auto) 22 % (24-48) Monocytes (%) (Auto) 10 % (0-9) Eosinophils (%) (Auto) 2 % (0-3) Basophils (%) (Auto) 1 % (0-3) Neutrophils # (Auto) 4.1 x10^3/uL (1.8-7.7) Lymphocytes # (Auto) 1.3 x10^3/uL (1.0-4.8) Monocytes # (Auto) 0.6 x10^3/uL (0.0-1.1) Eosinophils # (Auto) 0.1 x10^3/uL (0.0-0.7) Basophils # (Auto) 0.1 x10^3/uL (0.0-0.2) Sodium Level 141 mmol/L (136-145) 141 mmol/L (136-145) Potassium Level 5.2 mmol/L (3.5-5.1) 4.8 mmol/L (3.5-5.1) Chloride Level 110 mmol/L (98-107) 108 mmol/L (98-107) Carbon Dioxide Level 28 mmol/L (21-32) 27 mmol/L (21-32) Anion Gap 3 (6-14) 6 (6-14) Blood Urea Nitrogen 9 mg/dL (7-20) 9 mg/dL (7-20) Creatinine 0.6 mg/dL (0.6-1.0) 0.6 mg/dL (0.6-1.0) Estimated GFR (Cockcroft-Gault) 122.2 122.2 Glucose Level 103 mg/dL (70-99) 118 mg/dL (70-99) Calcium Level 8.3 mg/dL (8.5-10.1) 8.3 mg/dL (8.5-10.1) Phosphorus Level 2.6 mg/dL (2.6-4.7) 2.4 mg/dL (2.6-4.7) Magnesium Level 2.2 mg/dL (1.8-2.4) 1.9 mg/dL (1.8-2.4) BUN/Creatinine Ratio 15 (6-20) Total Bilirubin 0.2 mg/dL (0.2-1.0) Aspartate Amino Transf (AST/SGOT) 13 U/L (15-37) Alanine Aminotransferase (ALT/SGPT) 10 U/L (14-59) Alkaline Phosphatase 70 U/L (46-116) Total Protein 6.8 g/dL (6.4-8.2) Albumin 1.3 g/dL (3.4-5.0) Albumin/Globulin Ratio 0.2 (1.0-1.7) Laboratory Tests Test 12/26/18 06:20 Sodium Level 141 mmol/L (136-145) Potassium Level 4.8 mmol/L (3.5-5.1) Chloride Level 108 mmol/L (98-107) Carbon Dioxide Level 27 mmol/L (21-32) Anion Gap 6 (6-14) Blood Urea Nitrogen 9 mg/dL (7-20) Creatinine 0.6 mg/dL (0.6-1.0) Estimated GFR (Cockcroft-Gault) 122.2 BUN/Creatinine Ratio 15 (6-20) Glucose Level 118 mg/dL (70-99) Calcium Level 8.3 mg/dL (8.5-10.1) Phosphorus Level 2.4 mg/dL (2.6-4.7) Magnesium Level 1.9 mg/dL (1.8-2.4) Total Bilirubin 0.2 mg/dL (0.2-1.0) Aspartate Amino Transf (AST/SGOT) 13 U/L (15-37) Alanine Aminotransferase (ALT/SGPT) 10 U/L (14-59) Alkaline Phosphatase 70 U/L (46-116) Total Protein 6.8 g/dL (6.4-8.2) Albumin 1.3 g/dL (3.4-5.0) Albumin/Globulin Ratio 0.2 (1.0-1.7) Problem List Problems Medical Problems: (1) Fever Status: Acute (2) Severe protein-calorie malnutrition Status: Acute Assessment/Plan wound care supportive measures no surgical needs ANIA PATTON MD 12/26/18 1246: SURGICAL PROGRESS NOTE Assessment/Plan pt seen as above will sign off please call if needed Thank you JULY SUGGS APRN Dec 26, 2018 09:10 ANIA PATTON MD Dec 26, 2018 12:46
--- NOTE | 2018-12-26 09:16 | PDOC ---
Infectious Disease Note Subjective Subjective feeling better yet Eating abscess spontaneously drained Denies F/C Vital Sign Vital Signs Vital Signs Date Time Temp Pulse Resp B/P (MAP) Pulse Ox O2 Delivery O2 Flow Rate FiO2 12/26/18 08:24 103 139/95 12/26/18 08:23 19 99 Room Air 12/26/18 07:00 97.9 97.9 Physical Exam PHYSICAL EXAM GENERAL: Propped up in bed, alert, smiling LUNGS: Clear bilaterally. HEART: S1, S2. ABDOMEN: Soft, nondistended. Enterocutaneous fistula, Abscess ruptured, green drainage w/ food particles EXTREMITIES: Pedal edema DERMATOLOGIC: Warm to touch NEUROLOGIC: Alert and oriented x 3, grossly nonfocal. Power PICC without signs of complication. Labs Lab Laboratory Tests Test 12/26/18 06:20 Sodium Level 141 mmol/L (136-145) Potassium Level 4.8 mmol/L (3.5-5.1) Chloride Level 108 mmol/L (98-107) Carbon Dioxide Level 27 mmol/L (21-32) Anion Gap 6 (6-14) Blood Urea Nitrogen 9 mg/dL (7-20) Creatinine 0.6 mg/dL (0.6-1.0) Estimated GFR (Cockcroft-Gault) 122.2 BUN/Creatinine Ratio 15 (6-20) Glucose Level 118 mg/dL (70-99) Calcium Level 8.3 mg/dL (8.5-10.1) Phosphorus Level 2.4 mg/dL (2.6-4.7) Magnesium Level 1.9 mg/dL (1.8-2.4) Total Bilirubin 0.2 mg/dL (0.2-1.0) Aspartate Amino Transf (AST/SGOT) 13 U/L (15-37) Alanine Aminotransferase (ALT/SGPT) 10 U/L (14-59) Alkaline Phosphatase 70 U/L (46-116) Total Protein 6.8 g/dL (6.4-8.2) Albumin 1.3 g/dL (3.4-5.0) Albumin/Globulin Ratio 0.2 (1.0-1.7) Micro Microbiology 12/21/18 Blood Culture - Preliminary, Resulted NO GROWTH AFTER 4 DAYS 12/22/18 Anaerobic/Aerobic Culture, Resulted Pending 12/22/18 Anaerobic Culture Result 1 (ROYA), Resulted Pending 12/22/18 Aerobic Culture - Preliminary, Resulted 12/22/18 Aerobic Culture Result 1 (ROYA) - Preliminary, Resulted 12/22/18 Gram Stain - Final, Resulted 12/22/18 Gram Stain Result 1 (ROYA) - Final, Resulted 12/22/18 Gram Stain Result 2 (ROYA) - Final, Resulted Objective Assessment Fever at home, afebrile here. Abdominal pain. Abdominal wall abscesses, spontaneously drained. GNR on gram stain History of enterocutaneous and vesicoenteric fistula, chronic with multiple surgeries, on chronic TPN. History of recurrent urinary tract infections, had 9 infections, Nausea and vomiting. Diarrhea. c. diff neg, 12/22 Plan Plan of Care Discontinue Zyvox (12/22) -12/25 Cont Zosyn (12/22) - f/u GNR - clinically looks better. Probiotics General Surgery following f/u cultures Local wound care. D/w nursing ABBY MOTT MD Dec 26, 2018 09:16
[2018-12-26] MEDS: ZINC OXIDE 20% TOPICAL OINTMENT 28GM TUBE. TP SCH ×2 (10:14→21:35)
[2018-12-26] MEDS: LIDOCAINE/PRILOCAINE TOPICAL CREAM 5GM TUBE. TP SCH ×2 (10:14→21:35)
[2018-12-26 11:00] VITALS: BP 154/84
--- NOTE | 2018-12-26 11:35 | PDOC ---
PROGRESS NOTES Subjective Subjective had increased abdominal pain last night and iv dilaudid dose increased. has increased bipedal edema and will order iv lasix now. bp is okay, lab reviewed. off zyvox Objective Objective Vital Signs Date Time Temp Pulse Resp B/P (MAP) Pulse Ox O2 Delivery O2 Flow Rate FiO2 12/26/18 08:55 19 99 Room Air 12/26/18 08:24 103 139/95 12/26/18 07:00 97.9 97.9 Intake and Output 12/26/18 06:59 Intake Total 1250 ml Output Total 600 ml Balance 650 ml Intake Oral 1250 ml Output Urine Total 600 ml Physical Exam Abdomen: Soft, Other (EC fistula with sq abscess draining) Heart: Regular rate, Normal S1, Normal S2 Extremities: Other (2 plus bipedal edema) General: Alert HEENT: Atraumatic Lungs: Clear to auscultation Neuro: Normal speech Psych/Mental Status: Mental status NL, Mood NL Skin: No rashes Assessment Assessment Problems1. Fever resolved She does not have leukocytosis or lactic acidosis 2. Severe hypokalemia. resolved 3. Severe hypomagnesemia.resolved 4. Enterocutaneous fistula. 5. possible sq abdominal abscesses 6. Severe protein-calorie malnutrition. 7. Enterovesical fistula. abdominal wall abscess. spontaneously draining bipedal edema Medical Problems: (1) Fever Status: Acute (2) Severe protein-calorie malnutrition Status: Acute Plan Plan of Care continue iv zosyn iv lasix now lab tomorrow continue TPN await final abscess cultures. iv dilaudid prn. encouraged her to use the lower dose 2 mg iv rather than 4 mg iv dose continue amlodipine Comment Review of Relevant I have reviewed the following items lucila (where applicable) has been applied. Labs Laboratory Tests Test 12/25/18 05:25 12/26/18 06:20 White Blood Count 6.2 x10^3/uL (4.0-11.0) Red Blood Count 3.09 x10^6/uL (3.50-5.40) Hemoglobin 9.1 g/dL (12.0-15.5) Hematocrit 27.8 % (36.0-47.0) Mean Corpuscular Volume 90 fL (79-100) Mean Corpuscular Hemoglobin 30 pg (25-35) Mean Corpuscular Hemoglobin Concent 33 g/dL (31-37) Red Cell Distribution Width 17.4 % (11.5-14.5) Platelet Count 400 x10^3/uL (140-400) Neutrophils (%) (Auto) 66 % (31-73) Lymphocytes (%) (Auto) 22 % (24-48) Monocytes (%) (Auto) 10 % (0-9) Eosinophils (%) (Auto) 2 % (0-3) Basophils (%) (Auto) 1 % (0-3) Neutrophils # (Auto) 4.1 x10^3/uL (1.8-7.7) Lymphocytes # (Auto) 1.3 x10^3/uL (1.0-4.8) Monocytes # (Auto) 0.6 x10^3/uL (0.0-1.1) Eosinophils # (Auto) 0.1 x10^3/uL (0.0-0.7) Basophils # (Auto) 0.1 x10^3/uL (0.0-0.2) Sodium Level 141 mmol/L (136-145) 141 mmol/L (136-145) Potassium Level 5.2 mmol/L (3.5-5.1) 4.8 mmol/L (3.5-5.1) Chloride Level 110 mmol/L (98-107) 108 mmol/L (98-107) Carbon Dioxide Level 28 mmol/L (21-32) 27 mmol/L (21-32) Anion Gap 3 (6-14) 6 (6-14) Blood Urea Nitrogen 9 mg/dL (7-20) 9 mg/dL (7-20) Creatinine 0.6 mg/dL (0.6-1.0) 0.6 mg/dL (0.6-1.0) Estimated GFR (Cockcroft-Gault) 122.2 122.2 Glucose Level 103 mg/dL (70-99) 118 mg/dL (70-99) Calcium Level 8.3 mg/dL (8.5-10.1) 8.3 mg/dL (8.5-10.1) Phosphorus Level 2.6 mg/dL (2.6-4.7) 2.4 mg/dL (2.6-4.7) Magnesium Level 2.2 mg/dL (1.8-2.4) 1.9 mg/dL (1.8-2.4) BUN/Creatinine Ratio 15 (6-20) Total Bilirubin 0.2 mg/dL (0.2-1.0) Aspartate Amino Transf (AST/SGOT) 13 U/L (15-37) Alanine Aminotransferase (ALT/SGPT) 10 U/L (14-59) Alkaline Phosphatase 70 U/L (46-116) Total Protein 6.8 g/dL (6.4-8.2) Albumin 1.3 g/dL (3.4-5.0) Albumin/Globulin Ratio 0.2 (1.0-1.7) Laboratory Tests Test 12/26/18 06:20 Sodium Level 141 mmol/L (136-145) Potassium Level 4.8 mmol/L (3.5-5.1) Chloride Level 108 mmol/L (98-107) Carbon Dioxide Level 27 mmol/L (21-32) Anion Gap 6 (6-14) Blood Urea Nitrogen 9 mg/dL (7-20) Creatinine 0.6 mg/dL (0.6-1.0) Estimated GFR (Cockcroft-Gault) 122.2 BUN/Creatinine Ratio 15 (6-20) Glucose Level 118 mg/dL (70-99) Calcium Level 8.3 mg/dL (8.5-10.1) Phosphorus Level 2.4 mg/dL (2.6-4.7) Magnesium Level 1.9 mg/dL (1.8-2.4) Total Bilirubin 0.2 mg/dL (0.2-1.0) Aspartate Amino Transf (AST/SGOT) 13 U/L (15-37) Alanine Aminotransferase (ALT/SGPT) 10 U/L (14-59) Alkaline Phosphatase 70 U/L (46-116) Total Protein 6.8 g/dL (6.4-8.2) Albumin 1.3 g/dL (3.4-5.0) Albumin/Globulin Ratio 0.2 (1.0-1.7) Microbiology 12/21/18 Blood Culture - Preliminary, Resulted NO GROWTH AFTER 4 DAYS 12/22/18 Anaerobic/Aerobic Culture, Resulted Pending 12/22/18 Anaerobic Culture Result 1 (ROYA), Resulted Pending 12/22/18 Aerobic Culture - Preliminary, Resulted 12/22/18 Aerobic Culture Result 1 (ROYA) - Preliminary, Resulted 12/22/18 Gram Stain - Final, Resulted 12/22/18 Gram Stain Result 1 (ROYA) - Final, Resulted 12/22/18 Gram Stain Result 2 (ROYA) - Final, Resulted Medications Current Medications Piperacillin Sod/ Tazobactam Sod 4.5 gm/Sodium Chloride 100 ml @ 200 mls/hr 1X ONCE IV Last administered on 12/21/18at 22:23; Start 12/21/18 at 22:00; Stop 12/21/18 at 22:29; Status DC Vancomycin HCl (Vanco Per Pharmacy) 1 each 1X ONCE MC ; Start 12/21/18 at 21:45; Stop 12/21/18 at 21:46; Status UNV Sodium Chloride 1,000 ml @ 1,320 mls/hr Q46M IV Last administered on 12/21/18at 22:24; Start 12/21/18 at 21:41; Stop 12/21/18 at 22:40; Status DC Hydromorphone HCl (Dilaudid) 1 mg PRN Q2HR PRN IVP PAIN Last administered on 12/22/18at 10:03; Start 12/21/18 at 22:30; Stop 12/22/18 at 12:24; Status DC Potassium Chloride/Water 50 ml @ 50 mls/hr Q1H IV Last administered on 12/22/18at 01:09; Start 12/21/18 at 23:00; Stop 12/22/18 at 00:59; Status DC Potassium Chloride (Klor-Con) 40 meq 1X ONCE PO ; Start 12/21/18 at 23:00; Stop 12/21/18 at 23:01; Status DC Linezolid/Dextrose 300 ml @ 300 mls/hr Q12HR IV Last administered on 12/25/18at 08:31; Start 12/22/18 at 09:00; Stop 12/25/18 at 13:54; Status DC Ondansetron HCl (Zofran) 4 mg PRN Q8HRS PRN IV NAUSEA/VOMITING Last administered on 12/22/18at 11:38; Start 12/21/18 at 23:30; Stop 12/22/18 at 23:29; Status DC Fentanyl Citrate (Fentanyl 2ml Vial) 50 mcg PRN Q1HR PRN IV PAIN; Start 12/21/18 at 23:30; Stop 12/22/18 at 23:29; Status DC Sodium Chloride 1,000 ml @ 100 mls/hr Q10H IV Last administered on 12/22/18at 11:37; Start 12/21/18 at 23:30; Stop 12/22/18 at 12:24; Status DC Magnesium Sulfate 3 gm/Dextrose 106 ml @ 35.333 mls/ hr 1X ONCE IV Last administered on 12/22/18at 00:05; Start 12/21/18 at 23:45; Stop 12/22/18 at 02:44; Status DC Piperacillin Sod/ Tazobactam Sod 3.375 gm/Sodium Chloride 50 ml @ 100 mls/hr Q6HRS IV Last administered on 12/26/18at 06:24; Start 12/22/18 at 12:00 Hydromorphone HCl (Dilaudid) 2 mg PRN Q4HRS PRN IVP SEVERE PAIN 7-10 Last administered on 12/26/18at 03:44; Start 12/22/18 at 12:15; Stop 12/26/18 at 04:08; Status DC Hydromorphone HCl (Dilaudid) 4 mg PRN Q4HRS PRN IV SEVERE PAIN 7-10 Last administered on 12/25/18at 09:50; Start 12/22/18 at 12:15; Stop 12/25/18 at 12:09; Status DC Acetaminophen (Tylenol) 650 mg PRN Q6HRS PRN PO MILD PAIN / TEMP; Start 12/22/18 at 12:15 Ondansetron HCl (Zofran) 4 mg PRN Q6HRS PRN IV NAUSEA/VOMITING, 1st choice; Start 12/22/18 at 12:15 Lidocaine/ Prilocaine (Emla) 1 sang BID TP Last administered on 12/26/18at 10:14; Start 12/22/18 at 21:00 Zinc Oxide (Zinc Oxide 20% Topical) 1 sang BID TP Last administered on 12/26/18at 10:14; Start 12/22/18 at 21:00 Lorazepam (Ativan) 0.5 mg PRN Q6HRS PRN PO ANXIETY / AGITATION; Start 12/22/18 at 12:15 Zolpidem Tartrate (Ambien) 5 mg PRN QHS PRN PO INSOMNIA; Start 12/22/18 at 12:15 Magnesium Sulfate 50 ml @ 25 mls/hr 1X ONCE IV Last administered on 12/22/18at 13:40; Start 12/22/18 at 14:00; Stop 12/22/18 at 15:59; Status DC Potassium Chloride/Dextrose/ Sod Cl 1,000 ml @ 80 mls/hr [id number] IV Last administered on 12/22/18at 12:56; Start 12/22/18 at 13:00; Stop 12/22/18 at 22:00; Status DC Lactobacillus Rhamnosus (Culturelle) 1 cap BID PO Last administered on 12/26/18at 08:23; Start 12/22/18 at 21:00 Sodium Chloride 220 meq/Potassium Chloride 100 meq/ Potassium Phosphate 6.81 mmol/Magnesium Sulfate 40 meq/ Calcium Gluconate 14 meq/ Multivitamins 10 ml/Chromium/ Copper/Manganese/ Seleni/Zn 1 ml/ Sodium Phosphate 9.99 mmol/Total Parenteral Nutrition/Amino Acids/Dextrose/ Fat Emuls... 1,920 ml @ 80 mls/hr TPN CONT IV Last administered on 12/22/18at 21:43; Start 12/22/18 at 22:00; Stop 12/23/18 at 21:59; Status DC Info (Tpn Per Pharmacy) 1 each PRN DAILY PRN MC SEE COMMENTS Last administered on 12/25/18at 13:06; Start 12/22/18 at 14:15 Info (Tpn Per Pharmacy) 1 each PRN DAILY PRN MC SEE COMMENTS; Start 12/22/18 at 14:30; Status Cancel Pantoprazole Sodium (Protonix) 40 mg DAILYAC PO Last administered on 12/26/18at 08:23; Start 12/23/18 at 07:30 Ondansetron HCl (Zofran) 8 mg PRN Q6HRS PRN IV NAUSEA/VOMITING, 2nd choice Last administered on 12/23/18at 18:08; Start 12/22/18 at 17:30 Potassium Chloride/Water 50 ml @ 50 mls/hr Q1H IV Last administered on 12/22/18at 20:14; Start 12/22/18 at 17:45; Stop 12/22/18 at 19:44; Status DC Sodium Chloride 200 meq/Potassium Chloride 100 meq/ Potassium Phosphate 13.6 mmol/Magnesium Sulfate 35 meq/ Calcium Gluconate 14 meq/ Multivitamins 10 ml/ Chromium/ Copper/Manganese/ Seleni/Zn 1 ml/ Sodium Phosphate 9.99 mmol/Total Parenteral Nutrition/Amino Acids/Dextrose/ Fat Emuls... 1,920 ml @ 80 mls/hr TPN CONT IV Last administered on 12/23/18at 20:58; Start 12/23/18 at 22:00; Stop 12/24/18 at 21:59; Status DC Hydromorphone HCl (Dilaudid) 2 mg 1X ONCE IV Last administered on 12/23/18at 14:26; Start 12/23/18 at 14:30; Stop 12/23/18 at 14:31; Status DC Amlodipine Besylate (Norvasc) 5 mg DAILY PO Last administered on 12/26/18at 08:24; Start 12/24/18 at 13:00 Furosemide (Lasix) 20 mg 1X ONCE IVP Last administered on 12/24/18at 11:59; Start 12/24/18 at 11:45; Stop 12/24/18 at 11:48; Status DC Sodium Phosphate 20 mmol/Dextrose 256.6667 ml @ 64.167 m... 1X ONCE IV Last administered on 12/24/18at 13:40; Start 12/24/18 at 13:00; Stop 12/24/18 at 16:59; Status DC Lidocaine/ Epinephrine (LIDOCAINE 1%-EPI 1:100,000 Multi-Dose) 20 ml 1X ONCE INJ ; Start 12/24/18 at 12:15; Stop 12/24/18 at 12:16; Status DC Sodium Chloride 200 meq/Sodium Phosphate 15 mmol/ Potassium Chloride 50 meq/ Potassium Phosphate 13.6 mmol/Magnesium Sulfate 25 meq/ Calcium Gluconate 14 meq/ Multivitamins 10 ml/Chromium/ Copper/Manganese/ Seleni/Zn 1 ml/ Total Parenteral Nutrition/Amino Acids/Dextrose/ Fat Emuls... 1,920 ml @ 80 mls/hr T PN CONT IV Last administered on 12/24/18at 20:54; Start 12/24/18 at 22:00; Stop 12/25/18 at 21:59; Status DC Diphenhydramine HCl (Benadryl) 25 mg PRN Q6HRS PRN PO ITCHING Last administered on 12/24/18at 17:53; Start 12/24/18 at 17:45 Sodium Chloride 200 meq/Sodium Phosphate 15 mmol/ Potassium Chloride 40 meq/ Potassium Phosphate 13.6 mmol/Magnesium Sulfate 25 meq/ Calcium Gluconate 14 meq/ Multivitamins 10 ml/Chromium/ Copper/Manganese/ Seleni/Zn 1 ml/ Total Parenteral Nutrition/Amino Acids/Dextrose/ Fat Emuls... 1,920 ml @ 80 mls/hr TPN CONT IV Last administered on 12/25/18at 22:39; Start 12/25/18 at 22:00; Stop 12/26/18 at 21:59 Hydromorphone HCl (Dilaudid) 2 mg PRN Q4HRS PRN IVP MODERATE PAIN 4-6; Start 12/26/18 at 04:15 Hydromorphone HCl (Dilaudid) 4 mg PRN Q4HRS PRN IVP SEVERE PAIN 7-10 Last administered on 12/26/18at 08:23; Start 12/26/18 at 04:15 Active Scripts Active Nystatin 15 Gm Cream..g. 1 Sang TP BID [Pantoprazole] 40 MG Tablet.dr 40 Mg PO DAILYAC 30 Days Zinc Oxide 56.7 Gm Oint...g. 1 Sang TP BID Ambien (Zolpidem Tartrate) 5 Mg Tablet 5 Mg PO PRN QHS PRN 30 Days [Tpn Per Pharmacy] 1 EACH Each 1 Each MC PRN DAILY PRN TPN at 85cc/hour Sertraline Hcl 50 Mg Tablet 50 Mg PO DAILY 30 Days Lidocaine 35.44 Gm Oint...g. 1 Sang TP BID Reported Zofran Odt (Ondansetron) 4 Mg Tab.rapdis 1 Tab SL PRN Q8HRS PRN Zinc Oxide 56.7 Gm Oint...g. 56.7 Gm TP PRN BID Dilaudid (Hydromorphone Hcl) 2 Mg Tablet 1 Tab PO PRN QID PRN Lorazepam 0.5 Mg Tablet 0.5 Mg PO Q6HRS PRN Vitals/I & O Vital Sign - Last 24 Hours 12/25/18 12/25/18 12/25/18 12/25/18 13:58 15:00 18:04 18:24 Temp 98.2 98.2 Pulse 121 Resp 16 12 16 16 B/P (MAP) 145/85 (105) Pulse Ox 91 O2 Delivery Room Air Room Air Room Air 12/25/18 12/25/18 12/25/18 12/25/18 19:30 20:00 20:22 23:21 Temp 98.2 98.0 98.2 98.0 Pulse 123 115 Resp 20 18 B/P (MAP) 162/87 (112) 129/74 (92) Pulse Ox 99 100 O2 Delivery Room Air Room Air Room Air Room Air 12/25/18 12/25/18 12/26/18 12/26/18 23:25 23:55 03:24 03:44 Temp 98.0 98.0 Pulse 107 Resp 18 B/P (MAP) 129/67 (87) Pulse Ox 93 O2 Delivery Room Air Room Air Room Air Room Air 12/26/18 12/26/18 12/26/18 12/26/18 07:00 08:23 08:24 08:55 Temp 97.9 97.9 Pulse 103 103 Resp 18 19 B/P (MAP) 139/95 (110) 139/95 Pulse Ox 99 99 99 O2 Delivery Room Air Room Air Room Air Intake and Output 12/25/18 12/25/18 12/26/18 14:59 22:59 06:59 Intake Total 950 ml 300 ml Output Total 300 ml 200 ml 100 ml Balance -300 ml 750 ml 200 ml Nutrition Consultation Dietary Evaluation: Recommendations by RD: PPN/TPN Comments: continue nutrition care order Expected Outcomes/Goals: to meet > 75% est nutr needs via TPN Malnutrition Findings: Body Fat Depletion (Non Severe: Mild Depletion Weight Status: Underweight BENITA LUTZ MD Dec 26, 2018 11:35
--- NOTE | 2018-12-26 11:49 | PDOC ---
Subjective: Subjective: Abd pain better after drainage, no diarrhea, tolerating PO. Reviews the events that led to admission again. "I'm not in a hurry to leave." Objective: Vital Signs: Vital Signs Date Time Temp Pulse Resp B/P (MAP) Pulse Ox O2 Delivery O2 Flow Rate FiO2 12/26/18 08:55 19 99 Room Air 12/26/18 08:24 103 139/95 12/26/18 07:00 97.9 97.9 Labs: Laboratory Tests Test 12/26/18 06:20 Sodium Level 141 mmol/L Potassium Level 4.8 mmol/L Chloride Level 108 mmol/L Carbon Dioxide Level 27 mmol/L Anion Gap 6 Blood Urea Nitrogen 9 mg/dL Creatinine 0.6 mg/dL Estimated GFR (Cockcroft-Gault) 122.2 BUN/Creatinine Ratio 15 Glucose Level 118 mg/dL Calcium Level 8.3 mg/dL Phosphorus Level 2.4 mg/dL Magnesium Level 1.9 mg/dL Total Bilirubin 0.2 mg/dL Aspartate Amino Transf (AST/SGOT) 13 U/L Alanine Aminotransferase (ALT/SGPT) 10 U/L Alkaline Phosphatase 70 U/L Total Protein 6.8 g/dL Albumin 1.3 g/dL Albumin/Globulin Ratio 0.2 ANAEROBIC-AEROBIC CULTURE PENDING ANAEROBIC RES 1 PENDING AEROBIC CULT Preliminary Preliminary report AEROBIC RES 1 Preliminary Gram negative rods 3+ GRAM STAIN Final Final report GRAM STAIN RES 1 Final Comment No white blood cells seen. GRAM STAIN RES 2 Final Comment Few gram negative rods. BLOOD CULTURE Preliminary NO GROWTH AFTER 4 DAYS PE: GEN: NAD LUNGS: CTAB HEART: RRR ABD: NABS, S/ND/NT NEURO/PSYCH: A & O 3, drowsy A/P: Chronic/recurrent n/v and abd pain w/ fistulae drainage/abscess GERD Diarrhea - resolved Chronic anemia -- Stable GI-garcia. MIESHA RICO Dec 26, 2018 11:49
[2018-12-26] MEDS ORDERED: FUROSEMIDE 40 MG/4 ML VIAL. IVP ONE (12:00)
[2018-12-26] MEDS: TPN PER PHARMACY MC PRN (13:03)
--- NOTE | 2018-12-26 13:06 | NUR ---
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 Sodium phos 15mmol ordered x1 for slightly low phos level. R: Continue TPN Will monitor electrolytes, glucose, and tolerance to TPN. Sandra Muñiz RPH, 12/26/18 [id number]
[2018-12-26] MEDS ORDERED: SODIUM PHOSPHATE 15 MMOL in IV DEXTROSE 5% 250 ML IV ONE (14:00)
[2018-12-26 15:00] VITALS: BP 126/58
[2018-12-26] MEDS ORDERED: HYDROmorphone 2 MG/ML VIAL IV ONE (15:00)
--- NOTE | 2018-12-26 16:24 | NUR ---
Patient complained of abdominal pain 01/21 at 1420, pain medicine was given earlier at 1234, however, she claims that pain is more severe. Paged Dr. Cisneros and received a one time order pain medicine. Dilaudid administered per order. Spoke to GI PA about patient's abdominal pain, discussed that pain is chronic;and upon rounds this afternoon, the patient claimed that the pain is more controlled. We'll continue to monitor the patient's status.
[2018-12-26] MEDS: LORazepam 0.5 MG TABLET PO PRN (17:53)
[2018-12-26 19:53] VITALS: BP 141/81
[2018-12-26] MEDS ORDERED: [UNRECOGNIZED DRUG - OTHER] IV SCH ×11 (22:00)
[2018-12-26] MEDS ORDERED: TOTAL PARENTERAL NUTRITION IV SCH ×11 (22:00)
[2018-12-26] MEDS ORDERED: DEXTROSE 70% IV SCH ×11 (22:00)
[2018-12-26] MEDS ORDERED: AMINO ACID IV SCH ×11 (22:00)
[2018-12-26 23:56] VITALS: BP 114/75
[2018-12-27] MEDS: PIPERACILLIN/TAZOBACTAM 3.375 GM in IV NORMAL SALINE 50ML 50 ML IV SCH ×5 (00:34→23:47)
[2018-12-27] MEDS: HYDROmorphone 2 MG/ML VIAL IVP PRN ×4 (02:07→22:28)
[2018-12-27 03:49] VITALS: BP 129/80
[2018-12-27 06:56] LABS: CREATININE 0.5 mg/dL (0.6-1.0); GFR 150.8; MAGNESIUM 1.7 mg/dL (1.8-2.4); PHOSPHORUS 2.8 mg/dL (2.6-4.7); POTASSIUM 3.8 mmol/L (3.5-5.1)
[2018-12-27 07:00] VITALS: BP 102/61
[2018-12-27] MEDS: LACTOBACILLUS RHAMNOSUS GG 1 CAPSULE. PO SCH ×2 (08:31→18:00)
[2018-12-27] MEDS: PANTOPRAZOLE 40 MG TABLET.DR. PO SCH (08:31)
[2018-12-27] MEDS: ZINC OXIDE 20% TOPICAL OINTMENT 28GM TUBE. TP SCH ×2 (08:32→18:00)
[2018-12-27] MEDS: LIDOCAINE/PRILOCAINE TOPICAL CREAM 5GM TUBE. TP SCH ×2 (08:32→18:00)
[2018-12-27] MEDS: amLODIPine BESYLATE 5 MG TABLET PO SCH (08:32)
--- NOTE | 2018-12-27 09:03 | PDOC ---
Infectious Disease Note Subjective Subjective Doing ok but is a little tired. "Over did it yesterday" Eating Denies F/C Vital Sign Vital Signs Vital Signs Date Time Temp Pulse Resp B/P (MAP) Pulse Ox O2 Delivery O2 Flow Rate FiO2 12/27/18 08:32 111 102/61 12/27/18 08:31 19 95 Room Air 12/27/18 07:00 98.0 98.0 Physical Exam PHYSICAL EXAM GENERAL: Propped up in bed, alert, smiling LUNGS: Clear bilaterally. HEART: S1, S2. ABDOMEN: Soft, nondistended. Enterocutaneous fistula, Abscess ruptured, green drainage w/ food particles EXTREMITIES: Pedal edema DERMATOLOGIC: Warm to touch NEUROLOGIC: Alert and oriented x 3, grossly nonfocal. Power PICC without signs of complication. Labs Lab Laboratory Tests Test 12/27/18 06:15 Sodium Level 136 mmol/L (136-145) Potassium Level 3.8 mmol/L (3.5-5.1) Chloride Level 105 mmol/L (98-107) Carbon Dioxide Level 26 mmol/L (21-32) Anion Gap 5 (6-14) Blood Urea Nitrogen 8 mg/dL (7-20) Creatinine 0.5 mg/dL (0.6-1.0) Estimated GFR (Cockcroft-Gault) 150.8 Glucose Level 87 mg/dL (70-99) Calcium Level 8.0 mg/dL (8.5-10.1) Phosphorus Level 2.8 mg/dL (2.6-4.7) Magnesium Level 1.7 mg/dL (1.8-2.4) Micro 12/22/18 ANAEROBIC RES 1 Final Comment No anaerobic growth in 72 hours. AEROBIC CULT Final Final report AEROBIC RES 1 Final Escherichia coli 3+ ANTIMICROBIAL SUSCEPTIBILITY Final Comment S = Susceptible; I = Intermediate; R = Resistant P = Positive; N = Negative MICS are expressed in micrograms per mL Antibiotic RSLT#1 RSLT#2 RSLT#3 RSLT#4 Amoxicillin/Clavulanic Acid S =4 Ampicillin I =16 Cefepime S<=0.12 Ceftriaxone S<=0.25 Cefuroxime I =16 Ciprofloxacin R>=4 Ertapenem S<=0.12 Gentamicin S<=1 Imipenem S<=0.25 Levofloxacin R>=8 Meropenem S<=0.25 Piperacillin/Tazobactam S<=4 Tetracycline S =4 Tobramycin S<=1 Trimethoprim/Sulfa S<=20 Microbiology 12/21/18 Blood Culture - Preliminary, Resulted NO GROWTH AFTER 4 DAYS 12/22/18 Anaerobic/Aerobic Culture, Resulted Pending 12/22/18 Anaerobic Culture Result 1 (ROYA), Resulted Pending 12/22/18 Aerobic Culture - Preliminary, Resulted 12/22/18 Aerobic Culture Result 1 (ROYA) - Preliminary, Resulted 12/22/18 Gram Stain - Final, Resulted 12/22/18 Gram Stain Result 1 (ROYA) - Final, Resulted 12/22/18 Gram Stain Result 2 (ROYA) - Final, Resulted Objective Assessment Fever at home, afebrile here. Abdominal pain. Abdominal wall abscesses, spontaneously drained. Ecoli 12/22, cult 12/23 pending History of enterocutaneous and vesicoenteric fistula, chronic with multiple surgeries, on chronic TPN. History of recurrent urinary tract infections, had 9 infections, Nausea and vomiting. Diarrhea. c. diff neg, 12/22 Plan Plan of Care Discontinue Zyvox (12/22) -12/25 Cont Zosyn (12/22) - f/u GNR from 12/23- clinically looks better. Probiotics General Surgery following f/u cultures Local wound care. D/w nursing ABBY MOTT MD Dec 27, 2018 09:03
[2018-12-27 11:00] VITALS: BP 114/67
--- NOTE | 2018-12-27 11:13 | PDOC ---
Subjective: Subjective: Doing better today - reports significant abd pain yesterday. Tolerated some PO today, stooled yesterday. Wonders if the "hole will close up." Says she doesn't often need pain medications at home. Objective: Objective: Nurse called me yesterday afternoon to report severe pain though she told me her pain was better around the same time - advised to talk w/ Dr. Cisneros. Vital Signs: Vital Signs Date Time Temp Pulse Resp B/P (MAP) Pulse Ox O2 Delivery O2 Flow Rate FiO2 12/27/18 08:32 111 102/61 12/27/18 08:31 19 95 Room Air 12/27/18 07:00 98.0 98.0 Labs: Laboratory Tests Test 12/27/18 06:15 Sodium Level 136 mmol/L Potassium Level 3.8 mmol/L Chloride Level 105 mmol/L Carbon Dioxide Level 26 mmol/L Anion Gap 5 Blood Urea Nitrogen 8 mg/dL Creatinine 0.5 mg/dL Estimated GFR (Cockcroft-Gault) 150.8 Glucose Level 87 mg/dL Calcium Level 8.0 mg/dL Phosphorus Level 2.8 mg/dL Magnesium Level 1.7 mg/dL PE: GEN: NAD LUNGS: CTAB HEART: RRR ABD: brownish fistula drainage, I helped her with used towels NEURO/PSYCH: A & O 3 A/P: Chronic/recurrent n/v and abd pain w/ fistulae drainage and suspected intermittent obstruction Abd wall abscess - E coli, on atbx per ID -- Supportive care per GI. MIESHA RICO Dec 27, 2018 11:13
--- NOTE | 2018-12-27 11:56 | PDOC ---
PROGRESS NOTES Subjective Subjective feels better. lab reviewed. magnesium low 1.7. potassium on low side of normal. Objective Objective Vital Signs Date Time Temp Pulse Resp B/P (MAP) Pulse Ox O2 Delivery O2 Flow Rate FiO2 12/27/18 11:00 98.2 116 18 114/67 (83) 100 Room Air 98.2 Intake and Output 12/27/18 07:00 Intake Total 3220 ml Output Total 1350 ml Balance 1870 ml Intake Oral 1250 ml IV Total 1970 ml Output Urine Total 1350 ml # Voids 1 # Bowel Movements 4 Physical Exam Abdomen: Soft, Other (EC fistual and abscess opening) Heart: Regular rate, Normal S1, Normal S2 Extremities: Other (1 plus edema feet) General: Alert HEENT: Atraumatic Lungs: Clear to auscultation Neuro: Normal speech Psych/Mental Status: Mental status NL Skin: No rashes Assessment Assessment Problems1. Fever resolved She does not have leukocytosis or lactic acidosis 2. Severe hypokalemia. resolved 3. Severe hypomagnesemia.resolved 4. Enterocutaneous fistula. 5. possible sq abdominal abscesses 6. Severe protein-calorie malnutrition. 7. Enterovesical fistula. abdominal wall abscess. spontaneously draining bipedal edema better Medical Problems: Medical Problems: (1) Fever Status: Acute (2) Severe protein-calorie malnutrition Status: Acute Plan Plan of Care continue iv zosyn iv magnesium today iv lasix today await culture results continue TPN and spoke with pharmacist to increase kcl and magnesium in TPN Comment Review of Relevant I have reviewed the following items lucila (where applicable) has been applied. Labs Laboratory Tests Test 12/26/18 06:20 12/27/18 06:15 Sodium Level 141 mmol/L (136-145) 136 mmol/L (136-145) Potassium Level 4.8 mmol/L (3.5-5.1) 3.8 mmol/L (3.5-5.1) Chloride Level 108 mmol/L (98-107) 105 mmol/L (98-107) Carbon Dioxide Level 27 mmol/L (21-32) 26 mmol/L (21-32) Anion Gap 6 (6-14) 5 (6-14) Blood Urea Nitrogen 9 mg/dL (7-20) 8 mg/dL (7-20) Creatinine 0.6 mg/dL (0.6-1.0) 0.5 mg/dL (0.6-1.0) Estimated GFR (Cockcroft-Gault) 122.2 150.8 BUN/Creatinine Ratio 15 (6-20) Glucose Level 118 mg/dL (70-99) 87 mg/dL (70-99) Calcium Level 8.3 mg/dL (8.5-10.1) 8.0 mg/dL (8.5-10.1) Phosphorus Level 2.4 mg/dL (2.6-4.7) 2.8 mg/dL (2.6-4.7) Magnesium Level 1.9 mg/dL (1.8-2.4) 1.7 mg/dL (1.8-2.4) Total Bilirubin 0.2 mg/dL (0.2-1.0) Aspartate Amino Transf (AST/SGOT) 13 U/L (15-37) Alanine Aminotransferase (ALT/SGPT) 10 U/L (14-59) Alkaline Phosphatase 70 U/L (46-116) Total Protein 6.8 g/dL (6.4-8.2) Albumin 1.3 g/dL (3.4-5.0) Albumin/Globulin Ratio 0.2 (1.0-1.7) Laboratory Tests Test 12/27/18 06:15 Sodium Level 136 mmol/L (136-145) Potassium Level 3.8 mmol/L (3.5-5.1) Chloride Level 105 mmol/L (98-107) Carbon Dioxide Level 26 mmol/L (21-32) Anion Gap 5 (6-14) Blood Urea Nitrogen 8 mg/dL (7-20) Creatinine 0.5 mg/dL (0.6-1.0) Estimated GFR (Cockcroft-Gault) 150.8 Glucose Level 87 mg/dL (70-99) Calcium Level 8.0 mg/dL (8.5-10.1) Phosphorus Level 2.8 mg/dL (2.6-4.7) Magnesium Level 1.7 mg/dL (1.8-2.4) Microbiology 12/21/18 Blood Culture - Final, Complete NO GROWTH AFTER 5 DAYS 12/26/18 Fecal Leukocyte Stain - Final, Complete 12/23/18 Anaerobic/Aerobic Culture, Resulted Pending 12/23/18 Anaerobic Culture Result 1 (ROYA), Resulted Pending 12/23/18 Aerobic Culture, Resulted Pending 12/23/18 Aerobic Culture Result 1 (ROYA), Resulted Pending 12/23/18 Gram Stain - Final, Resulted 12/23/18 Gram Stain Result 1 (ROYA) - Final, Resulted 12/23/18 Gram Stain Result 2 (ROYA) - Final, Resulted Medications Current Medications Piperacillin Sod/ Tazobactam Sod 4.5 gm/Sodium Chloride 100 ml @ 200 mls/hr 1X ONCE IV Last administered on 12/21/18at 22:23; Start 12/21/18 at 22:00; Stop 12/21/18 at 22:29; Status DC Vancomycin HCl (Vanco Per Pharmacy) 1 each 1X ONCE MC ; Start 12/21/18 at 21:45; Stop 12/21/18 at 21:46; Status UNV Sodium Chloride 1,000 ml @ 1,320 mls/hr Q46M IV Last administered on 12/21/18at 22:24; Start 12/21/18 at 21:41; Stop 12/21/18 at 22:40; Status DC Hydromorphone HCl (Dilaudid) 1 mg PRN Q2HR PRN IVP PAIN Last administered on 12/22/18at 10:03; Start 12/21/18 at 22:30; Stop 12/22/18 at 12:24; Status DC Potassium Chloride/Water 50 ml @ 50 mls/hr Q1H IV Last administered on 12/22/18at 01:09; Start 12/21/18 at 23:00; Stop 12/22/18 at 00:59; Status DC Potassium Chloride (Klor-Con) 40 meq 1X ONCE PO ; Start 12/21/18 at 23:00; Stop 12/21/18 at 23:01; Status DC Linezolid/Dextrose 300 ml @ 300 mls/hr Q12HR IV Last administered on 12/25/18at 08:31; Start 12/22/18 at 09:00; Stop 12/25/18 at 13:54; Status DC Ondansetron HCl (Zofran) 4 mg PRN Q8HRS PRN IV NAUSEA/VOMITING Last administered on 12/22/18at 11:38; Start 12/21/18 at 23:30; Stop 12/22/18 at 23:29; Status DC Fentanyl Citrate (Fentanyl 2ml Vial) 50 mcg PRN Q1HR PRN IV PAIN; Start 12/21/18 at 23:30; Stop 12/22/18 at 23:29; Status DC Sodium Chloride 1,000 ml @ 100 mls/hr Q10H IV Last administered on 12/22/18at 11:37; Start 12/21/18 at 23:30; Stop 12/22/18 at 12:24; Status DC Magnesium Sulfate 3 gm/Dextrose 106 ml @ 35.333 mls/ hr 1X ONCE IV Last administered on 12/22/18at 00:05; Start 12/21/18 at 23:45; Stop 12/22/18 at 02:44; Status DC Piperacillin Sod/ Tazobactam Sod 3.375 gm/Sodium Chloride 50 ml @ 100 mls/hr Q6HRS IV Last administered on 12/27/18at 11:47; Start 12/22/18 at 12:00 Hydromorphone HCl (Dilaudid) 2 mg PRN Q4HRS PRN IVP SEVERE PAIN 7-10 Last administered on 12/26/18at 03:44; Start 12/22/18 at 12:15; Stop 12/26/18 at 04:08; Status DC Hydromorphone HCl (Dilaudid) 4 mg PRN Q4HRS PRN IV SEVERE PAIN 7-10 Last administered on 12/25/18at 09:50; Start 12/22/18 at 12:15; Stop 12/25/18 at 1 2:09; Status DC Acetaminophen (Tylenol) 650 mg PRN Q6HRS PRN PO MILD PAIN / TEMP; Start 12/22/18 at 12:15 Ondansetron HCl (Zofran) 4 mg PRN Q6HRS PRN IV NAUSEA/VOMITING, 1st choice; Start 12/22/18 at 12:15 Lidocaine/ Prilocaine (Emla) 1 sang BID TP Last administered on 12/27/18at 08:32; Start 12/22/18 at 21:00 Zinc Oxide (Zinc Oxide 20% Topical) 1 sang BID TP Last administered on 12/27/18at 08:32; Start 12/22/18 at 21:00 Lorazepam (Ativan) 0.5 mg PRN Q6HRS PRN PO ANXIETY / AGITATION Last administered on 12/26/18 17:53; Start 12/22/18 at 12:15 Zolpidem Tartrate (Ambien) 5 mg PRN QHS PRN PO INSOMNIA; Start 12/22/18 at 12:15 Magnesium Sulfate 50 ml @ 25 mls/hr 1X ONCE IV Last administered on 12/22/18 13:40; Start 12/22/18 at 14:00; Stop 12/22/18 at 15:59; Status DC Potassium Chloride/Dextrose/ Sod Cl 1,000 ml @ 80 mls/hr [id number] IV Last administered on 12/22/18 12:56; Start 12/22/18 at 13:00; Stop 12/22/18 at 22:00; Status DC Lactobacillus Rhamnosus (Culturelle) 1 cap BID PO Last administered on 12/12 08:31; Start 12/22/18 at 21:00 Sodium Chloride 220 meq/Potassium Chloride 100 meq/ Potassium Phosphate 6.81 mmol/Magnesium Sulfate 40 meq/ Calcium Gluconate 14 meq/ Multivitamins 10 ml/Chromium/ Copper/Manganese/ Seleni/Zn 1 ml/ Sodium Phosphate 9.99 mmol/Total Parenteral Nutrition/Amino Acids/Dextrose/ Fat Emuls... 1,920 ml @ 80 mls/hr TPN CONT IV Last administered on 12/22/18 21:43; Start 12/22/18 at 22:00; Stop 12/23/18 at 21:59; Status DC Info (Tpn Per Pharmacy) 1 each PRN DAILY PRN MC SEE COMMENTS Last administered on 12/26/18 13:03; Start 12/22/18 at 14:15 Info (Tpn Per Pharmacy) 1 each PRN DAILY PRN MC SEE COMMENTS; Start 12/22/18 at 14:30; Status Cancel Pantoprazole Sodium (Protonix) 40 mg DAILYAC PO Last administered on 12/27/18 08:31; Start 12/23/18 at 07:30 Ondansetron HCl (Zofran) 8 mg PRN Q6HRS PRN IV NAUSEA/VOMITING, 2nd choice Last administered on 12/23/18 18:08; Start 12/22/18 at 17:30 Potassium Chloride/Water 50 ml @ 50 mls/hr Q1H IV Last administered on 7/11/19at 20:14; Start 12/22/18 at 17:45; Stop 12/22/18 at 19:44; Status DC Sodium Chloride 200 meq/Potassium Chloride 100 meq/ Potassium Phosphate 13.6 mmol/Magnesium Sulfate 35 meq/ Calcium Gluconate 14 meq/ Multivitamins 10 ml/Chromium/ Copper/Manganese/ Seleni/Zn 1 ml/ Sodium Phosphate 9.99 mmol/Total Parenteral Nutrition/Amino Acids/Dextrose/ Fat Emuls... 1,920 ml @ 80 mls/hr TPN CONT IV Last administered on 12/23/18at 20:58; Start 12/23/18 at 22:00; Stop 12/24/18 at 21:59; Status DC Hydromorphone HCl (Dilaudid) 2 mg 1X ONCE IV Last administered on 12/23/18at 14:26; Start 12/23/18 at 14:30; Stop 12/23/18 at 14:31; Status DC Amlodipine Besylate (Norvasc) 5 mg DAILY PO Last administered on 12/27/18at 08:32; Start 12/24/18 at 13:00 Furosemide (Lasix) 20 mg 1X ONCE IVP Last administered on 12/24/18at 11:59; Start 12/24/18 at 11:45; Stop 12/24/18 at 11:48; Status DC Sodium Phosphate 20 mmol/Dextrose 256.6667 ml @ 64.167 m... 1X ONCE IV Last administered on 12/24/18at 13:40; Start 12/24/18 at 13:00; Stop 12/24/18 at 16:59; Status DC Lidocaine/ Epinephrine (LIDOCAINE 1%-EPI 1:100,000 Multi-Dose) 20 ml 1X ONCE INJ ; Start 12/24/18 at 12:15; Stop 12/24/18 at 12:16; Status DC Sodium Chloride 200 meq/Sodium Phosphate 15 mmol/ Potassium Chloride 50 meq/ Potassium Phosphate 13.6 mmol/Magnesium Sulfate 25 meq/ Calcium Gluconate 14 meq/ Multivitamins 10 ml/Chromium/ Copper/Manganese/ Seleni/Zn 1 ml/ Total Parenteral Nutrition/Amino Acids/Dextrose/ Fat Emuls... 1,920 ml @ 80 mls/hr TPN CONT IV Last administered on 12/24/18at 20:54; Start 12/24/18 at 22:00; Stop 12/25/18 at 21:59; Status DC Diphenhydramine HCl (Benadryl) 25 mg PRN Q6HRS PRN PO ITCHING Last administered on 12/24/18at 17:53; Start 12/24/18 at 17:45 Sodium Chloride 200 meq/Sodium Phosphate 15 mmol/ Potassium Chloride 40 meq/ Potassium Phosphate 13.6 mmol/Magnesium Sulfate 25 meq/ Calcium Gluconate 14 meq/ Multivitamins 10 ml/Chromium/ Copper/Manganese/ Seleni/Zn 1 ml/ Total Parenteral Nutrition/Amino Acids/Dextrose/ Fat Emuls... 1,920 ml @ 80 mls/hr TPN CONT IV Last administered on 12/25/18at 22:39; Start 12/25/18 at 22:00; Stop 12/26/18 at 21:59; Status DC Hydromorphone HCl (Dilaudid) 2 mg PRN Q4HRS PRN IVP MODERATE PAIN 4-6 Last administered on 12/27/18at 02:07; Start 12/26/18 at 04:15 Hydromorphone HCl (Dilaudid) 4 mg PRN Q4HRS PRN IVP SEVERE PAIN 7-10 Last administered on 12/27/18at 08:31; Start 12/26/18 at 04:15 Furosemide (Lasix) 40 mg 1X ONCE IVP Last administered on 12/26/18at 12:16; Start 12/26/18 at 12:00; Stop 12/26/18 at 12:01; Status DC Sodium Chloride 200 meq/Sodium Phosphate 15 mmol/ Potassium Chloride 40 meq/ Potassium Phosphate 13.6 mmol/Magnesium Sulfate 25 meq/ Calcium Gluconate 14 meq/ Multivitamins 10 ml/Chromium/ Copper/Manganese/ Seleni/Zn 1 ml/ Total Parenteral Nutrition/Amino Acids/Dextrose/ Fat Emuls... 1,920 ml @ 80 mls/hr TPN CONT IV Last administered on 12/26/18at 21:44; Start 12/26/18 at 22:00; Stop 12/27/18 at 21:59 Sodium Phosphate 15 mmol/Dextrose 255 ml @ 63.75 mls/ hr 1X ONCE IV Last administered on 12/26/18at 14:53; Start 12/26/18 at 14:00; Stop 12/26/18 at 17:59; Status DC Hydromorphone HCl (Dilaudid) 2 mg 1X ONCE IV Last administered on 12/26/18at 14:52; Start 12/26/18 at 15:00; Stop 12/26/18 at 15:01; Status DC Active Scripts Active Nystatin 15 Gm Cream..g. 1 Sang TP BID [Pantoprazole] 40 MG Tablet.dr 40 Mg PO DAILYAC 30 Days Zinc Oxide 56.7 Gm Oint...g. 1 Sang TP BID Ambien (Zolpidem Tartrate) 5 Mg Tablet 5 Mg PO PRN QHS PRN 30 Days [Tpn Per Pharmacy] 1 EACH Each 1 Each MC PRN DAILY PRN TPN at 85cc/hour Sertraline Hcl 50 Mg Tablet 50 Mg PO DAILY 30 Days Lidocaine 35.44 Gm Oint...g. 1 Sang TP BID Reported Zofran Odt (Ondansetron) 4 Mg Tab.rapdis 1 Tab SL PRN Q8HRS PRN Zinc Oxide 56.7 Gm Oint...g. 56.7 Gm TP PRN BID Dilaudid (Hydromorphone Hcl) 2 Mg Tablet 1 Tab PO PRN QID PRN Lorazepam 0.5 Mg Tablet 0.5 Mg PO Q6HRS PRN Vitals/I & O Vital Sign - Last 24 Hours 12/26/18 12/26/18 12/26/18 12/26/18 12:24 13:00 14:52 15:00 Temp 98.3 98.3 Pulse 119 Resp 19 18 18 18 B/P (MAP) 126/58 (80) Pulse Ox 97 99 97 99 O2 Delivery Room Air Room Air Room Air Room Air 12/26/18 12/26/18 12/26/18 12/26/18 15:30 19:53 20:00 21:36 Temp 98.5 98.5 Pulse 110 Resp 19 16 B/P (MAP) 141/81 (101) Pulse Ox 99 98 98 O2 Delivery Room Air Room Air Room Air Room Air 12/26/18 12/27/18 12/27/18 12/27/18 23:56 02:07 03:49 07:00 Temp 98.3 97.7 98.0 98.3 97.7 98.0 Pulse 111 117 111 Resp 18 16 18 B/P (MAP) 114/75 (88) 129/80 (96) 102/61 (75) Pulse Ox 98 100 95 O2 Delivery Room Air Room Air Room Air Room Air 12/27/18 12/27/18 12/27/18 12/27/18 08:00 08:31 08:32 11:00 Temp 98.2 98.2 Pulse 111 116 Resp 19 18 B/P (MAP) 102/61 114/67 (83) Pulse Ox 95 100 O2 Delivery Room Air Room Air Room Air Intake and Output 12/26/18 12/26/18 12/27/18 15:00 23:00 07:00 Intake Total 360 ml 2460 ml 400 ml Output Total 750 ml 600 ml Balance -390 ml 1860 ml 400 ml Nutrition Consultation Dietary Evaluation: Recommendations by RD: PPN/TPN Comments: continue nutrition care order Expected Outcomes/Goals: to meet > 75% est nutr needs via TPN- met, goal ongoing Malnutrition Findings: Body Fat Depletion (Non Severe: Mild Depletion Weight Status: Underweight BENITA LUTZ MD Dec 27, 2018 11:56
[2018-12-27] MEDS ORDERED: MAGNESIUM SULFATE 2GM 50 ML IV ONE (12:00)
[2018-12-27] MEDS: TPN PER PHARMACY MC PRN (13:02)
--- NOTE | 2018-12-27 13:10 | NUR ---
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 Cisneros's orders. Increased KCl 40 meq to 60 meq for drop in K, increase magnesium sulfate 25 meq to 30 meq and 2g rider given. Labs in AM. R: Continue TPN ABOVE. Will monitor electrolytes, glucose, and tolerance to TPN. CICI DURAN [facility], 12/27/18 1310
[2018-12-27 15:00] VITALS: BP 112/64
[2018-12-27] MEDS: LORazepam 0.5 MG TABLET PO PRN (18:00)
--- NOTE | 2018-12-27 18:26 | NUR ---
Patient reports feeling better today, pain medicine given twice throughout the shift, no nausea/vomiting, bowel movement noted.
[2018-12-27 19:10] VITALS: BP 130/81
[2018-12-27] MEDS ORDERED: AMINO ACID IV SCH ×11 (22:00)
[2018-12-27] MEDS ORDERED: DEXTROSE 70% IV SCH ×11 (22:00)
[2018-12-27] MEDS ORDERED: TOTAL PARENTERAL NUTRITION IV SCH ×11 (22:00)
[2018-12-27] MEDS ORDERED: [UNRECOGNIZED DRUG - OTHER] IV SCH ×11 (22:00)
[2018-12-27 23:00] VITALS: BP 134/79
[2018-12-27] MEDS: ZOLPIDEM 5 MG TABLET. PO PRN (23:48)
[2018-12-28 03:16] VITALS: BP 125/75
[2018-12-28] MEDS: PIPERACILLIN/TAZOBACTAM 3.375 GM in IV NORMAL SALINE 50ML 50 ML IV SCH ×3 (05:57→18:06)
[2018-12-28] MEDS: HYDROmorphone 2 MG/ML VIAL IVP PRN ×4 (05:59→20:01)
[2018-12-28 07:00] VITALS: BP 114/63
[2018-12-28 08:15] LABS: BASO # 0.1 x10^3/uL (0.0-0.2); BASO % 2 % (0-3); EOS # 0.1 x10^3/uL (0.0-0.7); EOS % 3 % (0-3); HEMATOCRIT 30.5 % (36.0-47.0); HEMOGLOBIN 10.1 g/dL (12.0-15.5); LYMPH # 0.7 x10^3/uL (1.0-4.8); LYMPH % 21 % (24-48); MEAN CORPUSCULAR HEMOGLOBIN 30 pg (25-35); MEAN CORPUSCULAR HGB CONC 33 g/dL (31-37); MEAN CORPUSCULAR VOLUME 90 fL (79-100); MONO # 0.2 x10^3/uL (0.0-1.1); MONO % 7 % (0-9); NEUT # 2.3 x10^3/uL (1.8-7.7); NEUT % 68 % (31-73); PLATELET COUNT 266 x10^3/uL (140-400); RED BLOOD COUNT 3.39 x10^6/uL (3.50-5.40); RED CELL DISTRIBUTION WIDTH 17.2 % (11.5-14.5); WHITE BLOOD COUNT 3.4 x10^3/uL (4.0-11.0)
--- NOTE | 2018-12-28 08:53 | PDOC ---
Infectious Disease Note Subjective Subjective Better today Swelling still but less Denies F/C/S/N/V/SOA ROS ROS o/w neg Vital Sign Vital Signs Vital Signs Date Time Temp Pulse Resp B/P (MAP) Pulse Ox O2 Delivery O2 Flow Rate FiO2 12/28/18 07:00 98.6 111 16 114/63 (80) 98 Room Air 98.6 Physical Exam PHYSICAL EXAM GENERAL: Propped up in bed, alert, smiling. looks well LUNGS: Clear bilaterally. HEART: S1, S2. ABDOMEN: Soft, nondistended. Enterocutaneous fistula, Abscess ruptured, green drainage w/ food particles EXTREMITIES: Pedal edema DERMATOLOGIC: Warm to touch NEUROLOGIC: Alert and oriented x 3, grossly nonfocal. Power PICC without signs of complication. Labs Lab Laboratory Tests Test 12/28/18 08:00 White Blood Count 3.4 x10^3/uL (4.0-11.0) Red Blood Count 3.39 x10^6/uL (3.50-5.40) Hemoglobin 10.1 g/dL (12.0-15.5) Hematocrit 30.5 % (36.0-47.0) Mean Corpuscular Volume 90 fL (79-100) Mean Corpuscular Hemoglobin 30 pg (25-35) Mean Corpuscular Hemoglobin Concent 33 g/dL (31-37) Red Cell Distribution Width 17.2 % (11.5-14.5) Platelet Count 266 x10^3/uL (140-400) Neutrophils (%) (Auto) 68 % (31-73) Lymphocytes (%) (Auto) 21 % (24-48) Monocytes (%) (Auto) 7 % (0-9) Eosinophils (%) (Auto) 3 % (0-3) Basophils (%) (Auto) 2 % (0-3) Neutrophils # (Auto) 2.3 x10^3/uL (1.8-7.7) Lymphocytes # (Auto) 0.7 x10^3/uL (1.0-4.8) Monocytes # (Auto) 0.2 x10^3/uL (0.0-1.1) Eosinophils # (Auto) 0.1 x10^3/uL (0.0-0.7) Basophils # (Auto) 0.1 x10^3/uL (0.0-0.2) Micro 7/11/19 ANAEROBIC RES 1 Final Comment No anaerobic growth in 72 hours. AEROBIC CULT Final Final report AEROBIC RES 1 Final Escherichia coli 3+ ANTIMICROBIAL SUSCEPTIBILITY Final Comment S = Susceptible; I = Intermediate; R = Resistant P = Positive; N = Negative MICS are expressed in micrograms per mL Antibiotic RSLT#1 RSLT#2 RSLT#3 RSLT#4 Amoxicillin/Clavulanic Acid S =4 Ampicillin I =16 Cefepime S<=0.12 Ceftriaxone S<=0.25 Cefuroxime I =16 Ciprofloxacin R>=4 Ertapenem S<=0.12 Gentamicin S<=1 Imipenem S<=0.25 Levofloxacin R>=8 Meropenem S<=0.25 Piperacillin/Tazobactam S<=4 Tetracycline S =4 Tobramycin S<=1 Trimethoprim/Sulfa S<=20 Microbiology 12/21/18 Blood Culture - Preliminary, Resulted NO GROWTH AFTER 4 DAYS 12/22/18 Anaerobic/Aerobic Culture, Resulted Pending 12/22/18 Anaerobic Culture Result 1 (ROYA), Resulted Pending 12/22/18 Aerobic Culture - Preliminary, Resulted 12/22/18 Aerobic Culture Result 1 (ROYA) - Preliminary, Resulted 12/22/18 Gram Stain - Final, Resulted 12/22/18 Gram Stain Result 1 (ROYA) - Final, Resulted 12/22/18 Gram Stain Result 2 (ROYA) - Final, Resulted Objective Assessment Fever at home, afebrile here. Abdominal pain. Abdominal wall abscesses, spontaneously drained. Ecoli 12/22, cult 12/23 pending with strep and cult 12/25 with yeast History of enterocutaneous and vesicoenteric fistula, chronic with multiple surgeries, on chronic TPN. History of recurrent urinary tract infections, had 9 infections, Nausea and vomiting. Diarrhea. c. diff neg, 12/22 Plan Plan of Care Discontinue Zyvox (12/22) -12/25 Cont Zosyn (12/22) - f/u GNR from 12/23- clinically looks better. F/u Strep Dose Micafungin Probiotics General Surgery following f/u cultures Local wound care. D/w nursing ABBY MOTT MD Dec 28, 2018 08:53
[2018-12-28 09:51] LABS: CALCIUM 8.2 mg/dL (8.5-10.1); CREATININE 0.6 mg/dL (0.6-1.0); GFR 122.2; MAGNESIUM 2.1 mg/dL (1.8-2.4); POTASSIUM 4.2 mmol/L (3.5-5.1)
[2018-12-28] MEDS: LORazepam 0.5 MG TABLET PO PRN ×2 (09:51→18:05)
[2018-12-28] MEDS: LACTOBACILLUS RHAMNOSUS GG 1 CAPSULE. PO SCH ×2 (09:52→20:00)
[2018-12-28] MEDS: ZINC OXIDE 20% TOPICAL OINTMENT 28GM TUBE. TP SCH ×2 (09:52→20:00)
[2018-12-28] MEDS: LIDOCAINE/PRILOCAINE TOPICAL CREAM 5GM TUBE. TP SCH ×2 (09:52→20:00)
[2018-12-28] MEDS: PANTOPRAZOLE 40 MG TABLET.DR. PO SCH (09:52)
[2018-12-28] MEDS: MICAFUNGIN 100 MG in IV DEXTROSE 5% 100ML 100 ML IV SCH (09:53)
[2018-12-28 11:00] VITALS: BP 147/76
--- NOTE | 2018-12-28 11:23 | PDOC ---
PROGRESS NOTES Subjective Subjective feels better. has bipedal edema. lab reviewed. Objective Objective Vital Signs Date Time Temp Pulse Resp B/P (MAP) Pulse Ox O2 Delivery O2 Flow Rate FiO2 12/28/18 10:08 17 Room Air 12/28/18 07:00 98.6 111 114/63 (80) 98 98.6 Intake and Output 12/28/18 06:59 Intake Total 760 ml Output Total 850 ml Balance -90 ml Intake Oral 760 ml Output Urine Total 850 ml # Voids 3 Physical Exam Abdomen: Soft, Other (EC fistula with abdominal wall abscess) Heart: Regular rate, Normal S1, Normal S2 Extremities: Other (1 plus bipedal edema) General: Alert HEENT: Atraumatic Lungs: Clear to auscultation Neuro: Normal speech Psych/Mental Status: Mental status NL Skin: No rashes Assessment Assessment Problems1. Fever resolved She does not have leukocytosis or lactic acidosis 2. Severe hypokalemia. resolved 3. Severe hypomagnesemia.resolved 4. Enterocutaneous fistula. 5. possible sq abdominal abscesses 6. Severe protein-calorie malnutrition. 7. Enterovesical fistula. abdominal wall abscess. spontaneously draining bipedal edema Medical Problems: (1) Fever Status: Acute (2) Severe protein-calorie malnutrition Status: Acute Plan Plan of Care continue iv zosyn and micafungin continue TPN iv lasix today lab tomorrow Comment Review of Relevant I have reviewed the following items lucila (where applicable) has been applied. Labs Laboratory Tests Test 12/26/18 21:45 12/27/18 06:15 12/28/18 08:00 Clostridium difficile Toxin B Gene Negative (Negative) Sodium Level 136 mmol/L (136-145) 138 mmol/L (136-145) Potassium Level 3.8 mmol/L (3.5-5.1) 4.2 mmol/L (3.5-5.1) Chloride Level 105 mmol/L (98-107) 106 mmol/L (98-107) Carbon Dioxide Level 26 mmol/L (21-32) 24 mmol/L (21-32) Anion Gap 5 (6-14) 8 (6-14) Blood Urea Nitrogen 8 mg/dL (7-20) 9 mg/dL (7-20) Creatinine 0.5 mg/dL (0.6-1.0) 0.6 mg/dL (0.6-1.0) Estimated GFR (Cockcroft-Gault) 150.8 122.2 Glucose Level 87 mg/dL (70-99) 164 mg/dL (70-99) Calcium Level 8.0 mg/dL (8.5-10.1) 8.2 mg/dL (8.5-10.1) Phosphorus Level 2.8 mg/dL (2.6-4.7) Magnesium Level 1.7 mg/dL (1.8-2.4) 2.1 mg/dL (1.8-2.4) White Blood Count 3.4 x10^3/uL (4.0-11.0) Red Blood Count 3.39 x10^6/uL (3.50-5.40) Hemoglobin 10.1 g/dL (12.0-15.5) Hematocrit 30.5 % (36.0-47.0) Mean Corpuscular Volume 90 fL (79-100) Mean Corpuscular Hemoglobin 30 pg (25-35) Mean Corpuscular Hemoglobin Concent 33 g/dL (31-37) Red Cell Distribution Width 17.2 % (11.5-14.5) Platelet Count 266 x10^3/uL (140-400) Neutrophils (%) (Auto) 68 % (31-73) Lymphocytes (%) (Auto) 21 % (24-48) Monocytes (%) (Auto) 7 % (0-9) Eosinophils (%) (Auto) 3 % (0-3) Basophils (%) (Auto) 2 % (0-3) Neutrophils # (Auto) 2.3 x10^3/uL (1.8-7.7) Lymphocytes # (Auto) 0.7 x10^3/uL (1.0-4.8) Monocytes # (Auto) 0.2 x10^3/uL (0.0-1.1) Eosinophils # (Auto) 0.1 x10^3/uL (0.0-0.7) Basophils # (Auto) 0.1 x10^3/uL (0.0-0.2) Laboratory Tests Test 12/28/18 08:00 White Blood Count 3.4 x10^3/uL (4.0-11.0) Red Blood Count 3.39 x10^6/uL (3.50-5.40) Hemoglobin 10.1 g/dL (12.0-15.5) Hematocrit 30.5 % (36.0-47.0) Mean Corpuscular Volume 90 fL (79-100) Mean Corpuscular Hemoglobin 30 pg (25-35) Mean Corpuscular Hemoglobin Concent 33 g/dL (31-37) Red Cell Distribution Width 17.2 % (11.5-14.5) Platelet Count 266 x10^3/uL (140-400) Neutrophils (%) (Auto) 68 % (31-73) Lymphocytes (%) (Auto) 21 % (24-48) Monocytes (%) (Auto) 7 % (0-9) Eosinophils (%) (Auto) 3 % (0-3) Basophils (%) (Auto) 2 % (0-3) Neutrophils # (Auto) 2.3 x10^3/uL (1.8-7.7) Lymphocytes # (Auto) 0.7 x10^3/uL (1.0-4.8) Monocytes # (Auto) 0.2 x10^3/uL (0.0-1.1) Eosinophils # (Auto) 0.1 x10^3/uL (0.0-0.7) Basophils # (Auto) 0.1 x10^3/uL (0.0-0.2) Sodium Level 138 mmol/L (136-145) Potassium Level 4.2 mmol/L (3.5-5.1) Chloride Level 106 mmol/L (98-107) Carbon Dioxide Level 24 mmol/L (21-32) Anion Gap 8 (6-14) Blood Urea Nitrogen 9 mg/dL (7-20) Creatinine 0.6 mg/dL (0.6-1.0) Estimated GFR (Cockcroft-Gault) 122.2 Glucose Level 164 mg/dL (70-99) Calcium Level 8.2 mg/dL (8.5-10.1) Magnesium Level 2.1 mg/dL (1.8-2.4) Microbiology 12/21/18 Blood Culture - Final, Complete NO GROWTH AFTER 5 DAYS 12/25/18 Anaerobic/Aerobic Culture, Resulted Pending 12/25/18 Anaerobic Culture Result 1 (ROYA), Resulted Pending 12/25/18 Aerobic Culture, Resulted Pending 12/25/18 Aerobic Culture Result 1 (ROYA), Resulted Pending 12/25/18 Gram Stain - Final, Resulted 12/25/18 Gram Stain Result 1 (ROYA) - Final, Resulted 12/25/18 Gram Stain Result 2 (ROYA) - Final, Resulted 12/25/18 Gram Stain Result 3 (ROYA) - Final, Resulted 12/26/18 Fecal Leukocyte Stain - Final, Complete 12/23/18 Anaerobic/Aerobic Culture, Resulted Pending 12/23/18 Anaerobic Culture Result 1 (ROYA), Resulted Pending 12/23/18 Aerobic Culture - Preliminary, Resulted 12/23/18 Aerobic Culture Result 1 (ROYA) - Preliminary, Resulted 12/23/18 Aerobic Culture Result 2 (ROYA) - Preliminary, Resulted 12/23/18 Gram Stain - Final, Resulted 12/23/18 Gram Stain Result 1 (ROYA) - Final, Resulted 12/23/18 Gram Stain Result 2 (ROYA) - Final, Resulted Medications Current Medications Piperacillin Sod/ Tazobactam Sod 4.5 gm/Sodium Chloride 100 ml @ 200 mls/hr 1X ONCE IV Last administered on 12/21/18at 22:23; Start 12/21/18 at 22:00; Stop 12/21/18 at 22:29; Status DC Vancomycin HCl (Vanco Per Pharmacy) 1 each 1X ONCE MC ; Start 12/21/18 at 21:45; Stop 12/21/18 at 21:46; Status UNV Sodium Chloride 1,000 ml @ 1,320 mls/hr Q46M IV Last administered on 12/21/18at 22:24; Start 12/21/18 at 21:41; Stop 12/21/18 at 22:40; Status DC Hydromorphone HCl (Dilaudid) 1 mg PRN Q2HR PRN IVP PAIN Last administered on 12/22/18at 10:03; Start 12/21/18 at 22:30; Stop 12/22/18 at 12:24; Status DC Potassium Chloride/Water 50 ml @ 50 mls/hr Q1H IV Last administered on 12/22/18at 01:09; Start 12/21/18 at 23:00; Stop 12/22/18 at 00:59; Status DC Potassium Chloride (Klor-Con) 40 meq 1X ONCE PO ; Start 12/21/18 at 23:00; Stop 12/21/18 at 23:01; Status DC Linezolid/Dextrose 300 ml @ 300 mls/hr Q12HR IV Last administered on 12/25/18at 08:31; Start 12/22/18 at 09:00; Stop 12/25/18 at 13:54; Status DC Ondansetron HCl (Zofran) 4 mg PRN Q8HRS PRN IV NAUSEA/VOMITING Last administered on 12/22/18at 11:38; Start 12/21/18 at 23:30; Stop 12/22/18 at 23:29; Status DC Fentanyl Citrate (Fentanyl 2ml Vial) 50 mcg PRN Q1HR PRN IV PAIN; Start 12/21/18 at 23:30; Stop 12/22/18 at 23:29; Status DC Sodium Chloride 1,000 ml @ 100 mls/hr Q10H IV Last administered on 12/22/18at 11:37; Start 12/21/18 at 23:30; Stop 12/22/18 at 12:24; Status DC Magnesium Sulfate 3 gm/Dextrose 106 ml @ 35.333 mls/ hr 1X ONCE IV Last administered on 12/22/18at 00:05; Start 12/21/18 at 23:45; Stop 12/22/18 at 02:44; Status DC Piperacillin Sod/ Tazobactam Sod 3.375 gm/Sodium Chloride 50 ml @ 100 mls/hr Q 6HRS IV Last administered on 12/28/18at 05:57; Start 12/22/18 at 12:00 Hydromorphone HCl (Dilaudid) 2 mg PRN Q4HRS PRN IVP SEVERE PAIN 7-10 Last administered on 12/26/18at 03:44; Start 12/22/18 at 12:15; Stop 12/26/18 at 04:08; Status DC Hydromorphone HCl (Dilaudid) 4 mg PRN Q4HRS PRN IV SEVERE PAIN 7-10 Last administered on 12/25/18at 09:50; Start 12/22/18 at 12:15; Stop 12/25/18 at 12:09; Status DC Acetaminophen (Tylenol) 650 mg PRN Q6HRS PRN PO MILD PAIN / TEMP; Start 12/22/18 at 12:15 Ondansetron HCl (Zofran) 4 mg PRN Q6HRS PRN IV NAUSEA/VOMITING, 1st choice; Start 12/22/18 at 12:15 Lidocaine/ Prilocaine (Emla) 1 sang BID TP Last administered on 12/28/18 09:52; Start 12/22/18 at 21:00 Zinc Oxide (Zinc Oxide 20% Topical) 1 sang BID TP Last administered on 12/28/18 09:52; Start 12/22/18 at 21:00 Lorazepam (Ativan) 0.5 mg PRN Q6HRS PRN PO ANXIETY / AGITATION Last administered on 12/28/18 09:51; Start 12/22/18 at 12:15 Zolpidem Tartrate (Ambien) 5 mg PRN QHS PRN PO INSOMNIA Last administered on 12/27/18 23:48; Start 12/22/18 at 12:15 Magnesium Sulfate 50 ml @ 25 mls/hr 1X ONCE IV Last administered on 12/22/18 13:40; Start 12/22/18 at 14:00; Stop 12/22/18 at 15:59; Status DC Potassium Chloride/Dextrose/ Sod Cl 1,000 ml @ 80 mls/hr [id number] IV Last administered on 12/22/18 12:56; Start 12/22/18 at 13:00; Stop 12/22/18 at 22:00; Status DC Lactobacillus Rhamnosus (Culturelle) 1 cap BID PO Last administered on 12/28/18 09:52; Start 12/22/18 at 21:00 Sodium Chloride 220 meq/Potassium Chloride 100 meq/ Potassium Phosphate 6.81 mmol/Magnesium Sulfate 40 meq/ Calcium Gluconate 14 meq/ Multivitamins 10 ml/Chromium/ Copper/Manganese/ Seleni/Zn 1 ml/ Sodium Phosphate 9.99 mmol/Total Parenteral Nutrition/Amino Acids/Dextrose/ Fat Emuls... 1,920 ml @ 80 mls/hr TPN CONT IV Last administered on 12/22/18 21:43; Start 12/22/18 at 22:00; Stop 12/23/18 at 21:59; Status DC Info (Tpn Per Pharmacy) 1 each PRN DAILY PRN MC SEE COMMENTS Last administered on 12/27/18 13:02; Start 12/22/18 at 14:15 Info (Tpn Per Pharmacy) 1 each PRN DAILY PRN MC SEE COMMENTS; Start 12/22/18 at 14:30; Status Cancel Pantoprazole Sodium (Protonix) 40 mg DAILYAC PO Last administered on 12/28/18at 09:52; Start 12/23/18 at 07:30 Ondansetron HCl (Zofran) 8 mg PRN Q6HRS PRN IV NAUSEA/VOMITING, 2nd choice Last administered on 12/23/18at 18:08; Start 12/22/18 at 17:30 Potassium Chloride/Water 50 ml @ 50 mls/hr Q1H IV Last administered on 12/22/18at 20:14; Start 12/22/18 at 17:45; Stop 12/22/18 at 19:44; Status DC Sodium Chloride 200 meq/Potassium Chloride 100 meq/ Potassium Phosphate 13.6 mmol/Magnesium Sulfate 35 meq/ Calcium Gluconate 14 meq/ Multivitamins 10 ml/ Chromium/ Copper/Manganese/ Seleni/Zn 1 ml/ Sodium Phosphate 9.99 mmol/Total Parenteral Nutrition/Amino Acids/Dextrose/ Fat Emuls... 1,920 ml @ 80 mls/hr TPN CONT IV Last administered on 12/23/18at 20:58; Start 12/23/18 at 22:00; Stop 12/24/18 at 21:59; Status DC Hydromorphone HCl (Dilaudid) 2 mg 1X ONCE IV Last administered on 12/23/18at 14:26; Start 12/23/18 at 14:30; Stop 12/23/18 at 14:31; Status DC Amlodipine Besylate (Norvasc) 5 mg DAILY PO Last administered on 12/27/18at 08:32; Start 12/24/18 at 13:00; Stop 12/27/18 at 11:58; Status DC Furosemide (Lasix) 20 mg 1X ONCE IVP Last administered on 12/24/18at 11:59; Start 12/24/18 at 11:45; Stop 12/24/18 at 11:48; Status DC Sodium Phosphate 20 mmol/Dextrose 256.6667 ml @ 64.167 m... 1X ONCE IV Last administered on 12/24/18at 13:40; Start 12/24/18 at 13:00; Stop 12/24/18 at 16:59; Status DC Lidocaine/ Epinephrine (LIDOCAINE 1%-EPI 1:100,000 Multi-Dose) 20 ml 1X ONCE INJ ; Start 12/24/18 at 12:15; Stop 12/24/18 at 12:16; Status DC Sodium Chloride 200 meq/Sodium Phosphate 15 mmol/ Potassium Chloride 50 meq/ Potassium Phosphate 13.6 mmol/Magnesium Sulfate 25 meq/ Calcium Gluconate 14 meq/ Multivitamins 10 ml/Chromium/ Copper/Manganese/ Seleni/Zn 1 ml/ Total Parenteral Nutrition/Amino Acids/Dextrose/ Fat Emuls... 1,920 ml @ 80 mls/hr TPN CONT IV Last administered on 12/24/18at 20:54; Start 12/24/18 at 22:00; Stop 12/25/18 at 21:59; Status DC Diphenhydramine HCl (Benadryl) 25 mg PRN Q6HRS PRN PO ITCHING Last administered on 12/24/18at 17:53; Start 12/24/18 at 17:45 Sodium Chloride 200 meq/Sodium Phosphate 15 mmol/ Potassium Chloride 40 meq/ Potassium Phosphate 13.6 mmol/Magnesium Sulfate 25 meq/ Calcium Gluconate 14 meq/ Multivitamins 10 ml/Chromium/ Copper/Manganese/ Seleni/Zn 1 ml/ Total Parenteral Nutrition/Amino Acids/Dextrose/ Fat Emuls... 1,920 ml @ 80 mls/hr TPN CONT IV Last administered on 12/25/18at 22:39; Start 12/25/18 at 22:00; Stop 12/26/18 at 21:59; Status DC Hydromorphone HCl (Dilaudid) 2 mg PRN Q4HRS PRN IVP MODERATE PAIN 4-6 Last a dministered on 12/27/18at 22:28; Start 12/26/18 at 04:15 Hydromorphone HCl (Dilaudid) 4 mg PRN Q4HRS PRN IVP SEVERE PAIN 7-10 Last administered on 12/28/18at 10:08; Start 12/26/18 at 04:15 Furosemide (Lasix) 40 mg 1X ONCE IVP Last administered on 12/26/18at 12:16; Start 12/26/18 at 12:00; Stop 12/26/18 at 12:01; Status DC Sodium Chloride 200 meq/Sodium Phosphate 15 mmol/ Potassium Chloride 40 meq/ Potassium Phosphate 13.6 mmol/Magnesium Sulfate 25 meq/ Calcium Gluconate 14 meq/ Multivitamins 10 ml/Chromium/ Copper/Manganese/ Seleni/Zn 1 ml/ Total Parenteral Nutrition/Amino Acids/Dextrose/ Fat Emuls... 1,920 ml @ 80 mls/hr TPN CONT IV Last administered on 12/26/18at 21:44; Start 12/26/18 at 22:00; Stop 12/27/18 at 21:59; Status DC Sodium Phosphate 15 mmol/Dextrose 255 ml @ 63.75 mls/ hr 1X ONCE IV Last administered on 12/26/18at 14:53; Start 12/26/18 at 14:00; Stop 12/26/18 at 1 7:59; Status DC Hydromorphone HCl (Dilaudid) 2 mg 1X ONCE IV Last administered on 12/26/18at 14:52; Start 12/26/18 at 15:00; Stop 12/26/18 at 15:01; Status DC Magnesium Sulfate 50 ml @ 25 mls/hr 1X ONCE IV Last administered on 12/27/18at 13:12; Start 12/27/18 at 12:00; Stop 12/27/18 at 13:59; Status DC Sodium Chloride 200 meq/Sodium Phosphate 15 mmol/ Potassium Chloride 60 meq/ Potassium Phosphate 13.6 mmol/Magnesium Sulfate 30 meq/ Calcium Gluconate 14 meq/ Multivitamins 10 ml/Chromium/ Copper/Manganese/ Seleni/Zn 1 ml/ Total Parenteral Nutrition/Amino Acids/Dextrose/ Fat Emuls... 1,920 ml @ 80 mls/hr TPN CONT IV Last administered on 12/27/18at 21:29; Start 12/27/18 at 22:00; Stop 12/28/18 at 21:59 Micafungin Sodium 100 mg/Dextrose 100 ml @ 100 mls/hr Q24H IV Last administered on 12/28/18at 09:53; Start 12/28/18 at 10:00 Active Scripts Active Nystatin 15 Gm Cream..g. 1 Sang TP BID [Pantoprazole] 40 MG Tablet.dr 40 Mg PO DAILYAC 30 Days Zinc Oxide 56.7 Gm Oint...g. 1 Sang TP BID Ambien (Zolpidem Tartrate) 5 Mg Tablet 5 Mg PO PRN QHS PRN 30 Days [Tpn Per Pharmacy] 1 EACH Each 1 Each PRN DAILY PRN TPN at 85cc/hour Sertraline Hcl 50 Mg Tablet 50 Mg PO DAILY 30 Days Lidocaine 35.44 Gm Oint...g. 1 Sang TP BID Reported Zofran Odt (Ondansetron) 4 Mg Tab.rapdis 1 Tab SL PRN Q8HRS PRN Zinc Oxide 56.7 Gm Oint...g. 56.7 Gm TP PRN BID Dilaudid (Hydromorphone Hcl) 2 Mg Tablet 1 Tab PO PRN QID PRN Lorazepam 0.5 Mg Tablet 0.5 Mg PO Q6HRS PRN Vitals/I & O Vital Sign - Last 24 Hours 12/27/18 12/27/18 12/27/18 12/27/18 15:00 16:44 17:15 19:10 Temp 97.9 98.8 97.9 98.8 Pulse 112 117 Resp 18 18 19 18 B/P (MAP) 112/64 (80) 130/81 (97) Pulse Ox 98 98 98 100 O2 Delivery Room Air Room Air Room Air 12/27/18 12/27/18 12/27/18 12/27/18 20:00 22:28 23:00 23:44 Temp 98.0 98.0 Pulse 109 Resp 18 B/P (MAP) 134/79 (97) Pulse Ox 100 O2 Delivery Room Air Room Air Room Air Room Air 12/28/18 12/28/18 12/28/18 12/28/18 03:16 05:59 06:43 07:00 Temp 98.0 98.6 98.0 98.6 Pulse 105 111 Resp 18 16 B/P (MAP) 125/75 (92) 114/63 (80) Pulse Ox 99 98 O2 Delivery Room Air Room Air Room Air Room Air 12/28/18 10:08 Resp 17 O2 Delivery Room Air Intake and Output 12/27/18 12/27/18 12/28/18 14:59 22:59 06:59 Intake Total 460 ml 300 ml Output Total 150 ml 400 ml 300 ml Balance 310 ml -100 ml -300 ml Nutrition Consultation Dietary Evaluation: Recommendations by RD: PPN/TPN Comments: continue nutrition care order Expected Outcomes/Goals: to meet > 75% est nutr needs via TPN- met, goal ongoing Malnutrition Findings: Body Fat Depletion (Non Severe: Mild Depletion Weight Status: Underweight BENITA LUTZ MD Dec 28, 2018 11:23
--- NOTE | 2018-12-28 11:26 | PDOC ---
Objective: Objective: Note C Diff neg again. Vital Signs: Vital Signs Date Time Temp Pulse Resp B/P (MAP) Pulse Ox O2 Delivery O2 Flow Rate FiO2 12/28/18 10:08 17 Room Air 12/28/18 07:00 98.6 111 114/63 (80) 98 98.6 Labs: Laboratory Tests Test 12/28/18 08:00 White Blood Count 3.4 x10^3/uL Red Blood Count 3.39 x10^6/uL Hemoglobin 10.1 g/dL Hematocrit 30.5 % Mean Corpuscular Volume 90 fL Mean Corpuscular Hemoglobin 30 pg Mean Corpuscular Hemoglobin Concent 33 g/dL Red Cell Distribution Width 17.2 % Platelet Count 266 x10^3/uL Neutrophils (%) (Auto) 68 % Lymphocytes (%) (Auto) 21 % Monocytes (%) (Auto) 7 % Eosinophils (%) (Auto) 3 % Basophils (%) (Auto) 2 % Neutrophils # (Auto) 2.3 x10^3/uL Lymphocytes # (Auto) 0.7 x10^3/uL Monocytes # (Auto) 0.2 x10^3/uL Eosinophils # (Auto) 0.1 x10^3/uL Basophils # (Auto) 0.1 x10^3/uL Sodium Level 138 mmol/L Potassium Level 4.2 mmol/L Chloride Level 106 mmol/L Carbon Dioxide Level 24 mmol/L Anion Gap 8 Blood Urea Nitrogen 9 mg/dL Creatinine 0.6 mg/dL Estimated GFR (Cockcroft-Gault) 122.2 Glucose Level 164 mg/dL Calcium Level 8.2 mg/dL Magnesium Level 2.1 mg/dL PE: GEN: NAD NEURO/PSYCH:sleeping, not awakened A/P: Chronic n/v and abd pain - on TPN Fistulae drainage Abd wall abscess - atbx per ID -- Continue same per GI. MIESHA RICO Dec 28, 2018 11:26
[2018-12-28] MEDS ORDERED: FUROSEMIDE 40 MG/4 ML VIAL. IVP ONE (11:30)
[2018-12-28] MEDS: TPN PER PHARMACY MC PRN (12:16)
--- NOTE | 2018-12-28 12:17 | NUR ---
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 LABS: Sodium: 138 Potassium: 4.2 Chloride: 106 Calcium: 8.2 Corrected Calcium: 10.36 Magnesium: 2.1 CO2: 27 SCr: 0.6 Glucose: 164 Albumin: 1.3 AST: 13 ALT: 10 TPN FORMULA: TPN TYPE: Central Continuous AMINO ACIDS: 90 gm DEXTROSE: 285 gm LIPIDS: 30 gm SODIUM CHLORIDE: 200 mEq SODIUM ACETATE: - mEq SODIUM PHOSPHATE: 15 mmol POTASSIUM CHLORIDE: 60 mEq POTASSIUM ACETATE: - mEq POTASSIUM PHOSPHATE: 13.6 mmol MAGNESIUM: 30 mEq CALCIUM: 14 mEq INSULIN: - units MULTIPLE VITAMIN: 10 ml TRACE ELEMENTS: 1 ml(s) TPN PLAN: 12/28 CONT SAME R: Continue TPN Will monitor electrolytes, glucose, and tolerance to TPN. ROC ROBLES [facility], 12/28/18 [id number]
[2018-12-28 15:00] VITALS: BP 163/73
[2018-12-28 19:05] VITALS: BP 161/97
[2018-12-28] MEDS ORDERED: DEXTROSE 70% IV SCH ×11 (22:00)
[2018-12-28] MEDS ORDERED: [UNRECOGNIZED DRUG - OTHER] IV SCH ×11 (22:00)
[2018-12-28] MEDS ORDERED: TOTAL PARENTERAL NUTRITION IV SCH ×11 (22:00)
[2018-12-28] MEDS ORDERED: AMINO ACID IV SCH ×11 (22:00)
[2018-12-28 23:05] VITALS: BP 154/84
[2018-12-29] MEDS: PIPERACILLIN/TAZOBACTAM 3.375 GM in IV NORMAL SALINE 50ML 50 ML IV SCH ×2 (00:49→05:28)
[2018-12-29] MEDS: HYDROmorphone 2 MG/ML VIAL IVP PRN ×6 (00:50→23:35)
[2018-12-29 03:08] VITALS: BP 131/67
[2018-12-29 04:25] LABS: CALCIUM 8.2 mg/dL (8.5-10.1); CREATININE 0.5 mg/dL (0.6-1.0); GFR 150.8; MAGNESIUM 1.8 mg/dL (1.8-2.4); PHOSPHORUS 2.7 mg/dL (2.6-4.7); POTASSIUM 4.4 mmol/L (3.5-5.1)
[2018-12-29 07:00] VITALS: BP 127/73
[2018-12-29] MEDS: LACTOBACILLUS RHAMNOSUS GG 1 CAPSULE. PO SCH ×2 (10:01→21:08)
[2018-12-29] MEDS: PANTOPRAZOLE 40 MG TABLET.DR. PO SCH (10:02)
[2018-12-29] MEDS: ZINC OXIDE 20% TOPICAL OINTMENT 28GM TUBE. TP SCH ×2 (10:03→21:09)
[2018-12-29] MEDS: LIDOCAINE/PRILOCAINE TOPICAL CREAM 5GM TUBE. TP SCH ×2 (10:03→21:09)
[2018-12-29] MEDS: MICAFUNGIN 100 MG in IV DEXTROSE 5% 100ML 100 ML IV SCH (10:03)
--- NOTE | 2018-12-29 10:44 | PDOC ---
Infectious Disease Note Subjective Subjective Better today Denies F/C/S/N/V/SOA Vital Sign Vital Signs Vital Signs Date Time Temp Pulse Resp B/P (MAP) Pulse Ox O2 Delivery O2 Flow Rate FiO2 12/29/18 10:08 16 Room Air 12/29/18 07:00 98.4 110 127/73 (91) 99 98.4 Physical Exam PHYSICAL EXAM GENERAL: Propped up in bed, alert, smiling. looks well LUNGS: Clear bilaterally. HEART: S1, S2. ABDOMEN: Soft, nondistended. Enterocutaneous fistula, Abscess ruptured, green drainage w/ food particles EXTREMITIES: Pedal edema DERMATOLOGIC: Warm to touch NEUROLOGIC: Alert and oriented x 3, grossly nonfocal. Power PICC without signs of complication. Labs Lab Laboratory Tests Test 12/29/18 03:16 Sodium Level 138 mmol/L (136-145) Potassium Level 4.4 mmol/L (3.5-5.1) Chloride Level 103 mmol/L (98-107) Carbon Dioxide Level 27 mmol/L (21-32) Anion Gap 8 (6-14) Blood Urea Nitrogen 8 mg/dL (7-20) Creatinine 0.5 mg/dL (0.6-1.0) Estimated GFR (Cockcroft-Gault) 150.8 Glucose Level 111 mg/dL (70-99) Calcium Level 8.2 mg/dL (8.5-10.1) Phosphorus Level 2.7 mg/dL (2.6-4.7) Magnesium Level 1.8 mg/dL (1.8-2.4) Micro Raoultella ornithinolytica 4+ AEROBIC RES 2 Final Enterococcus faecalis 2+ ANTIMICROBIAL SUSCEPTIBILITY Final Comment S = Susceptible; I = Intermediate; R = Resistant P = Positive; N = Negative MICS are expressed in micrograms per mL Antibiotic RSLT#1 RSLT#2 RSLT#3 RSLT#4 Amoxicillin/Clavulanic Acid R>=32 Ampicillin R>=32 Cefazolin R>=64 Cefuroxime R>=64 Ciprofloxacin S<=0.25 Gentamicin S<=1 Imipenem S =0.5 Meropenem S<=0.25 Penicillin S =8 Escherichia coli 4+ AEROBIC RES 2 Final Citrobacter farmeri 4+ AEROBIC RES 3 Final Enterococcus faecalis 4+ ANTIMICROBIAL SUSCEPTIBILITY Final Comment S = Susceptible; I = Intermediate; R = Resistant P = Positive; N = Negative MICS are expressed in micrograms per mL Antibiotic RSLT#1 RSLT#2 RSLT#3 RSLT#4 Amoxicillin/Clavulanic Acid S =4 R>=32 Ampicillin I =16 Cefazolin R>=64 Cefepime S<=0.12 Ceftriaxone S<=0.25 CONTINUED ON NEXT PAGE RUN DATE: 12/28/18 PAGE 2 RUN TIME: 1317 [facility] [address] [place] [address] Krystian Gee M.D., Bomb Technician SPEC: [id number] PATIENT: HERMAN MONCADA [id number] (Continued) -------- Procedure Result ANTIMICROBIAL SUSCEPTIBILITY Final (continued) Cefuroxime I =16 R>=64 Ciprofloxacin R>=4 S<=0.25 Ertapenem S<=0.12 Gentamicin S<=1 S<=1 Imipenem S<=0.25 S<=0.25 Levofloxacin R>=8 Meropenem S<=0.25 S =1 Penicillin S =4 Piperacillin/Tazobactam S<=4 Tetracycline S =4 S<=1 Tobramycin S<=1 S<=1 Trimethoprim/Sulfa S<=20 S<=20 Vancomycin S =1 CONTINUED ON NEXT PAGE RUN DATE: 12/28/18 PAGE 2 RUN TIME: 1314 [facility] [address] [place] [address] Krystian Gee M.D., Bomb Technician SPEC: [id number] PATIENT: ANTWANHERMAN C [id number] (Continued) Procedure Result ANTIMICROBIAL SUSCEPTIBILITY Final (continued) Tetracycline S =2 Tobramycin S<=1 Trimethoprim/Sulfa S<=20 Vancomycin 12/22/18 ANAEROBIC RES 1 Final Comment No anaerobic growth in 72 hours. AEROBIC CULT Final Final report AEROBIC RES 1 Final Escherichia coli 3+ ANTIMICROBIAL SUSCEPTIBILITY Final Comment S = Susceptible; I = Intermediate; R = Resistant P = Positive; N = Negative MICS are expressed in micrograms per mL Antibiotic RSLT#1 RSLT#2 RSLT#3 RSLT#4 Amoxicillin/Clavulanic Acid S =4 Ampicillin I =16 Cefepime S<=0.12 Ceftriaxone S<=0.25 Cefuroxime I =16 Ciprofloxacin R>=4 Ertapenem S<=0.12 Gentamicin S<=1 Imipenem S<=0.25 Levofloxacin R>=8 Meropenem S<=0.25 Piperacillin/Tazobactam S<=4 Tetracycline S =4 Tobramycin S<=1 Trimethoprim/Sulfa S<=20 Microbiology 12/21/18 Blood Culture - Preliminary, Resulted NO GROWTH AFTER 4 DAYS 12/22/18 Anaerobic/Aerobic Culture, Resulted Pending 12/22/18 Anaerobic Culture Result 1 (ROYA), Resulted Pending 12/22/18 Aerobic Culture - Preliminary, Resulted 12/22/18 Aerobic Culture Result 1 (ROYA) - Preliminary, Resulted 12/22/18 Gram Stain - Final, Resulted 12/22/18 Gram Stain Result 1 (ROYA) - Final, Resulted 12/22/18 Gram Stain Result 2 (ROYA) - Final, Resulted Objective Assessment Fever at home, afebrile here. Abdominal pain. Abdominal wall abscesses, spontaneously drained. Ecoli 12/22, cult 12/23 Ci trobacter, Raoutella and Enterococcus and cult 12/25 with yeast History of enterocutaneous and vesicoenteric fistula, chronic with multiple surgeries, on chronic TPN. History of recurrent urinary tract infections, had 9 infections, Nausea and vomiting. Diarrhea. c. diff neg, 12/22 Plan Plan of Care Discontinue Zyvox (12/22) -12/25 discont Zosyn (12/22) begin Meropenem Dose Micafungin CBC in am Probiotics General Surgery following f/u cultures Local wound care. D/w nursing ABBY MOTT MD Dec 29, 2018 10:44
[2018-12-29 11:09] VITALS: BP 142/70
[2018-12-29] MEDS: MEROPENEM 500 MG in IV NORMAL SALINE 50ML 50 ML IV SCH ×3 (12:33→23:35)
--- NOTE | 2018-12-29 12:35 | PDOC ---
PROGRESS NOTES Subjective Subjective feels better. switched to iv meropenem. lab reviewed., Objective Objective Vital Signs Date Time Temp Pulse Resp B/P (MAP) Pulse Ox O2 Delivery O2 Flow Rate FiO2 12/29/18 11:09 98.1 104 20 142/70 (94) 99 Room Air 98.1 Intake and Output 12/29/18 07:00 Intake Total 540 ml Output Total 2450 ml Balance -1910 ml Intake Oral 540 ml Output Urine Total 2450 ml Physical Exam Abdomen: Soft, Other (EC fistula) Heart: Regular rate, Normal S1, Normal S2 Extremities: No edema General: Alert HEENT: Atraumatic Lungs: Clear to auscultation Neuro: Normal speech Psych/Mental Status: Mental status NL Skin: No rashes Assessment Assessment Problems1. Fever resolved She does not have leukocytosis or lactic acidosis 2. Severe hypokalemia. resolved 3. Severe hypomagnesemia.resolved 4. Enterocutaneous fistula. 5. possible sq abdominal abscesses 6. Severe protein-calorie malnutrition. 7. Enterovesical fistula. abdominal wall abscess. spontaneously draining. multiple organisms in culture Medical Problems: (1) Fever Status: Acute (2) Severe protein-calorie malnutrition Status: Acute Plan Plan of Care continue TPN continue iv meropenem continue prn iv dilaudid Comment Review of Relevant I have reviewed the following items lucila (where applicable) has been applied. Labs Laboratory Tests Test 12/28/18 08:00 12/29/18 03:16 White Blood Count 3.4 x10^3/uL (4.0-11.0) Red Blood Count 3.39 x10^6/uL (3.50-5.40) Hemoglobin 10.1 g/dL (12.0-15.5) Hematocrit 30.5 % (36.0-47.0) Mean Corpuscular Volume 90 fL (79-100) Mean Corpuscular Hemoglobin 30 pg (25-35) Mean Corpuscular Hemoglobin Concent 33 g/dL (31-37) Red Cell Distribution Width 17.2 % (11.5-14.5) Platelet Count 266 x10^3/uL (140-400) Neutrophils (%) (Auto) 68 % (31-73) Lymphocytes (%) (Auto) 21 % (24-48) Monocytes (%) (Auto) 7 % (0-9) Eosinophils (%) (Auto) 3 % (0-3) Basophils (%) (Auto) 2 % (0-3) Neutrophils # (Auto) 2.3 x10^3/uL (1.8-7.7) Lymphocytes # (Auto) 0.7 x10^3/uL (1.0-4.8) Monocytes # (Auto) 0.2 x10^3/uL (0.0-1.1) Eosinophils # (Auto) 0.1 x10^3/uL (0.0-0.7) Basophils # (Auto) 0.1 x10^3/uL (0.0-0.2) Sodium Level 138 mmol/L (136-145) 138 mmol/L (136-145) Potassium Level 4.2 mmol/L (3.5-5.1) 4.4 mmol/L (3.5-5.1) Chloride Level 106 mmol/L (98-107) 103 mmol/L (98-107) Carbon Dioxide Level 24 mmol/L (21-32) 27 mmol/L (21-32) Anion Gap 8 (6-14) 8 (6-14) Blood Urea Nitrogen 9 mg/dL (7-20) 8 mg/dL (7-20) Creatinine 0.6 mg/dL (0.6-1.0) 0.5 mg/dL (0.6-1.0) Estimated GFR (Cockcroft-Gault) 122.2 150.8 Glucose Level 164 mg/dL (70-99) 111 mg/dL (70-99) Calcium Level 8.2 mg/dL (8.5-10.1) 8.2 mg/dL (8.5-10.1) Magnesium Level 2.1 mg/dL (1.8-2.4) 1.8 mg/dL (1.8-2.4) Phosphorus Level 2.7 mg/dL (2.6-4.7) Laboratory Tests Test 12/29/18 03:16 Sodium Level 138 mmol/L (136-145) Potassium Level 4.4 mmol/L (3.5-5.1) Chloride Level 103 mmol/L (98-107) Carbon Dioxide Level 27 mmol/L (21-32) Anion Gap 8 (6-14) Blood Urea Nitrogen 8 mg/dL (7-20) Creatinine 0.5 mg/dL (0.6-1.0) Estimated GFR (Cockcroft-Gault) 150.8 Glucose Level 111 mg/dL (70-99) Calcium Level 8.2 mg/dL (8.5-10.1) Phosphorus Level 2.7 mg/dL (2.6-4.7) Magnesium Level 1.8 mg/dL (1.8-2.4) Microbiology 12/21/18 Blood Culture - Final, Complete NO GROWTH AFTER 5 DAYS 12/25/18 Anaerobic/Aerobic Culture, Resulted Pending 12/25/18 Anaerobic Culture Result 1 (ROYA), Resulted Pending 12/25/18 Aerobic Culture - Preliminary, Resulted 12/25/18 Aerobic Culture Result 1 (ROYA) - Preliminary, Resulted 12/25/18 Aerobic Culture Result 2 (ROYA) - Preliminary, Resulted 12/25/18 Gram Stain - Final, Resulted 12/25/18 Gram Stain Result 1 (ROYA) - Final, Resulted 12/25/18 Gram Stain Result 2 (ROYA) - Final, Resulted 12/25/18 Gram Stain Result 3 (ROYA) - Final, Resulted 12/26/18 Fecal Leukocyte Stain - Final, Complete 12/23/18 Anaerobic/Aerobic Culture - Final, Complete 12/23/18 Anaerobic Culture Result 1 (ROYA) - Final, Complete 12/23/18 Aerobic Culture - Final, Complete 12/23/18 Aerobic Culture Result 1 (ROYA) - Final, Complete 12/23/18 Aerobic Culture Result 2 (ROYA) - Final, Complete 12/23/18 Antimicrobic Susceptibility - Final, Complete 12/23/18 Gram Stain - Final, Complete 12/23/18 Gram Stain Result 1 (ROYA) - Final, Complete 12/23/18 Gram Stain Result 2 (ROYA) - Final, Complete Medications Current Medications Piperacillin Sod/ Tazobactam Sod 4.5 gm/Sodium Chloride 100 ml @ 200 mls/hr 1X ONCE IV Last administered on 12/21/18at 22:23; Start 12/21/18 at 22:00; Stop 12/21/18 at 22:29; Status DC Vancomycin HCl (Vanco Per Pharmacy) 1 each 1X ONCE MC ; Start 12/21/18 at 21:45; Stop 12/21/18 at 21:46; Status UNV Sodium Chloride 1,000 ml @ 1,320 mls/hr Q46M IV Last administered on 12/21/18at 22:24; Start 12/21/18 at 21:41; Stop 12/21/18 at 22:40; Status DC Hydromorphone HCl (Dilaudid) 1 mg PRN Q2HR PRN IVP PAIN Last administered on 12/22/18at 10:03; Start 12/21/18 at 22:30; Stop 12/22/18 at 12:24; Status DC Potassium Chloride/Water 50 ml @ 50 mls/hr Q1H IV Last administered on 12/22/18at 01:09; Start 12/21/18 at 23:00; Stop 12/22/18 at 00:59; Status DC Potassium Chloride (Klor-Con) 40 meq 1X ONCE PO ; Start 12/21/18 at 23:00; Stop 12/21/18 at 23:01; Status DC Linezolid/Dextrose 300 ml @ 300 mls/hr Q12HR IV Last administered on 12/25/18at 08:31; Start 12/22/18 at 09:00; Stop 12/25/18 at 13:54; Status DC Ondansetron HCl (Zofran) 4 mg PRN Q8HRS PRN IV NAUSEA/VOMITING Last administered on 12/22/18at 11:38; Start 12/21/18 at 23:30; Stop 12/22/18 at 23:29; Status DC Fentanyl Citrate (Fentanyl 2ml Vial) 50 mcg PRN Q1HR PRN IV PAIN; Start 12/21/18 at 23:30; Stop 12/22/18 at 23:29; Status DC Sodium Chloride 1,000 ml @ 100 mls/hr Q10H IV Last administered on 12/22/18at 11:37; Start 12/21/18 at 23:30; Stop 12/22/18 at 12:24; Status DC Magnesium Sulfate 3 gm/Dextrose 106 ml @ 35.333 mls/ hr 1X ONCE IV Last administered on 12/22/18at 00:05; Start 12/21/18 at 23:45; Stop 12/22/18 at 02:44; Status DC Piperacillin Sod/ Tazobactam Sod 3.375 gm/Sodium Chloride 50 ml @ 100 mls/hr Q6HRS IV Last administered on 12/29/18at 05:28; Start 12/22/18 at 12:00; Stop 12/29/18 at 10:44; Status DC Hydromorphone HCl (Dilaudid) 2 mg PRN Q4HRS PRN IVP SEVERE PAIN 7-10 Last administered on 12/26/18at 03:44; Start 12/22/18 at 12:15; Stop 12/26/18 at 04:08; Status DC Hydromorphone HCl (Dilaudid) 4 mg PRN Q4HRS PRN IV SEVERE PAIN 7-10 Last administered on 12/25/18at 09:50; Start 12/22/18 at 12:15; Stop 12/25/18 at 12:09; Status DC Acetaminophen (Tylenol) 650 mg PRN Q6HRS PRN PO MILD PAIN / TEMP; Start 12/22/18 at 12:15 Ondansetron HCl (Zofran) 4 mg PRN Q6HRS PRN IV NAUSEA/VOMITING, 1st choice; Start 12/22/18 at 12:15 Lidocaine/ Prilocaine (Emla) 1 sang BID TP Last administered on 12/29/18at 10:03; Start 12/22/18 at 21:00 Zinc Oxide (Zinc Oxide 20% Topical) 1 sang BID TP Last administered on 12/29/18at 10:03; Start 12/22/18 at 21:00 Lorazepam (Ativan) 0.5 mg PRN Q6HRS PRN PO ANXIETY / AGITATION Last administered on 12/28/18at 18:05; Start 12/22/18 at 12:15 Zolpidem Tartrate (Ambien) 5 mg PRN QHS PRN PO INSOMNIA Last administered on 12/27/18at 23:48; Start 12/22/18 at 12:15 Magnesium Sulfate 50 ml @ 25 mls/hr 1X ONCE IV Last administered on 12/22/18at 13:40; Start 12/22/18 at 14:00; Stop 12/22/18 at 15:59; Status DC Potassium Chloride/Dextrose/ Sod Cl 1,000 ml @ 80 mls/hr [id number] IV Last administered on 12/22/18at 12:56; Start 12/22/18 at 13:00; Stop 12/22/18 at 22:00; Status DC Lactobacillus Rhamnosus (Culturelle) 1 cap BID PO Last administered on 12/29/18at 10:01; Start 12/22/18 at 21:00 Sodium Chloride 220 meq/Potassium Chloride 100 meq/ Potassium Phosphate 6.81 mmol/Magnesium Sulfate 40 meq/ Calcium Gluconate 14 meq/ Multivitamins 10 ml/Chromium/ Copper/Manganese/ Seleni/Zn 1 ml/ Sodium Phosphate 9.99 mmol/Total Parenteral Nutrition/Amino Acids/Dextrose/ Fat Emuls... 1,920 ml @ 80 mls/hr TPN CONT IV Last administered on 12/22/18at 21:43; Start 12/22/18 at 22:00; Stop 12/23/18 at 21:59; Status DC Info (Tpn Per Pharmacy) 1 each PRN DAILY PRN MC SEE COMMENTS Last administered on 12/28/18at 12:16; Start 12/22/18 at 14:15 Info (Tpn Per Pharmacy) 1 each PRN DAILY PRN MC SEE COMMENTS; Start 12/22/18 at 14:30; Status Cancel Pantoprazole Sodium (Protonix) 40 mg DAILYAC PO Last administered on 12/29/18at 10:02; Start 12/23/18 at 07:30 Ondansetron HCl (Zofran) 8 mg PRN Q6HRS PRN IV NAUSEA/VOMITING, 2nd choice Last administered on 12/23/18at 18:08; Start 12/22/18 at 17:30 Potassium Chloride/Water 50 ml @ 50 mls/hr Q1H IV Last administered on 12/22/18at 20:14; Start 12/22/18 at 17:45; Stop 12/22/18 at 19:44; Status DC Sodium Chloride 200 meq/Potassium Chloride 100 meq/ Potassium Phosphate 13.6 mmol/Magnesium Sulfate 35 meq/ Calcium Gluconate 14 meq/ Multivitamins 10 ml/Chromium/ Copper/Manganese/ Seleni/Zn 1 ml/ Sodium Phosphate 9.99 mmol/Total Parenteral Nutrition/Amino Acids/Dextrose/ Fat Emuls... 1,920 ml @ 80 mls/hr TPN CONT IV Last administered on 12/23/18at 20:58; Start 12/23/18 at 22:00; Stop 12/24/18 at 21:59; Status DC Hydromorphone HCl (Dilaudid) 2 mg 1X ONCE IV Last administered on 7/12/19at 14:26; Start 12/23/18 at 14:30; Stop 12/23/18 at 14:31; Status DC Amlodipine Besylate (Norvasc) 5 mg DAILY PO Last administered on 12/27/18at 08:32; Start 12/24/18 at 13:00; Stop 12/27/18 at 11:58; Status DC Furosemide (Lasix) 20 mg 1X ONCE IVP Last administered on 12/24/18at 11:59; Start 12/24/18 at 11:45; Stop 12/24/18 at 11:48; Status DC Sodium Phosphate 20 mmol/Dextrose 256.6667 ml @ 64.167 m... 1X ONCE IV Last administered on 12/24/18at 13:40; Start 12/24/18 at 13:00; Stop 12/24/18 at 16:59; Status DC Lidocaine/ Epinephrine (LIDOCAINE 1%-EPI 1:100,000 Multi-Dose) 20 ml 1X ONCE INJ ; Start 12/24/18 at 12:15; Stop 12/24/18 at 12:16; Status DC Sodium Chloride 200 meq/Sodium Phosphate 15 mmol/ Potassium Chloride 50 meq/ Potassium Phosphate 13.6 mmol/Magnesium Sulfate 25 meq/ Calcium Gluconate 14 meq/ Multivitamins 10 ml/Chromium/ Copper/Manganese/ Seleni/Zn 1 ml/ Total Parenteral Nutrition/Amino Acids/Dextrose/ Fat Emuls... 1,920 ml @ 80 mls/hr TPN CONT IV Last administered on 12/24/18at 20:54; Start 12/24/18 at 22:00; Stop 12/25/18 at 21:59; Status DC Diphenhydramine HCl (Benadryl) 25 mg PRN Q6HRS PRN PO ITCHING Last administered on 12/24/18at 17:53; Start 12/24/18 at 17:45 Sodium Chloride 200 meq/Sodium Phosphate 15 mmol/ Potassium Chloride 40 meq/ Potassium Phosphate 13.6 mmol/Magnesium Sulfate 25 meq/ Calcium Gluconate 14 meq/ Multivitamins 10 ml/Chromium/ Copper/Manganese/ Seleni/Zn 1 ml/ Total Parenteral Nutrition/Amino Acids/Dextrose/ Fat Emuls... 1,920 ml @ 80 mls/hr TPN CONT IV Last administered on 12/25/18at 22:39; Start 12/25/18 at 22:00; Stop 12/26/18 at 21:59; Status DC Hydromorphone HCl (Dilaudid) 2 mg PRN Q4HRS PRN IVP MODERATE PAIN 4-6 Last administered on 12/29/18at 00:50; Start 12/26/18 at 04:15 Hydromorphone HCl (Dilaudid) 4 mg PRN Q4HRS PRN IVP SEVERE PAIN 7-10 Last administered on 12/29/18at 10:08; Start 12/26/18 at 04:15 Furosemide (Lasix) 40 mg 1X ONCE IVP Last administered on 12/26/18at 12:16; Start 12/26/18 at 12:00; Stop 12/26/18 at 12:01; Status DC Sodium Chloride 200 meq/Sodium Phosphate 15 mmol/ Potassium Chloride 40 meq/ Potassium Phosphate 13.6 mmol/Magnesium Sulfate 25 meq/ Calcium Gluconate 14 meq/ Multivitamins 10 ml/Chromium/ Copper/Manganese/ Seleni/Zn 1 ml/ Total Parenteral Nutrition/Amino Acids/Dextrose/ Fat Emuls... 1,920 ml @ 80 mls/hr TPN CONT IV Last administered on 12/26/18at 21:44; Start 12/26/18 at 22:00; Stop 12/27/18 at 21:59; Status DC Sodium Phosphate 15 mmol/Dextrose 255 ml @ 63.75 mls/ hr 1X ONCE IV Last administered on 12/26/18at 14:53; Start 12/26/18 at 14:00; Stop 12/26/18 at 17:59; Status DC Hydromorphone HCl (Dilaudid) 2 mg 1X ONCE IV Last administered on 12/26/18at 14:52; Start 12/26/18 at 15:00; Stop 12/26/18 at 15:01; Status DC Magnesium Sulfate 50 ml @ 25 mls/hr 1X ONCE IV Last administered on 12/27/18at 13:12; Start 12/27/18 at 12:00; Stop 12/27/18 at 13:59; Status DC Sodium Chloride 200 meq/Sodium Phosphate 15 mmol/ Potassium Chloride 60 meq/ Potassium Phosphate 13.6 mmol/Magnesium Sulfate 30 meq/ Calcium Gluconate 14 meq/ Multivitamins 10 ml/Chromium/ Copper/Manganese/ Seleni/Zn 1 ml/ Total Parenteral Nutrition/Amino Acids/Dextrose/ Fat Emuls... 1,920 ml @ 80 mls/hr TPN CONT IV Last administered on 12/27/18at 21:29; Start 12/27/18 at 22:00; Stop 12/28/18 at 21:59; Status DC Micafungin Sodium 100 mg/Dextrose 100 ml @ 100 mls/hr Q24H IV Last administered on 12/29/18at 10:03; Start 12/28/18 at 10:00 Furosemide (Lasix) 40 mg 1X ONCE IVP Last administered on 12/28/18at 12:31; Start 12/28/18 at 11:30; Stop 12/28/18 at 11:31; Status DC Sodium Chloride 200 meq/Sodium Phosphate 15 mmol/ Potassium Chloride 60 meq/ Potassium Phosphate 13.6 mmol/Magnesium Sulfate 30 meq/ Calcium Gluconate 14 meq/ Multivitamins 10 ml/Chromium/ Copper/Manganese/ Seleni/Zn 1 ml/ Total Parenteral Nutrition/Amino Acids/Dextrose/ Fat Emuls... 1,920 ml @ 80 mls/hr TPN CONT IV Last administered on 12/28/18at 23:21; Start 12/28/18 at 22:00; Stop 12/29/18 at 21:59 Meropenem 500 mg/ Sodium Chloride 50 ml @ 100 mls/hr Q6HRS IV ; Start 12/29/18 at 12:00 Active Scripts Active Nystatin 15 Gm Cream..g. 1 Sang TP BID [Pantoprazole] 40 MG Tablet.dr 40 Mg PO DAILYAC 30 Days Zinc Oxide 56.7 Gm Oint...g. 1 Sang TP BID Ambien (Zolpidem Tartrate) 5 Mg Tablet 5 Mg PO PRN QHS PRN 30 Days [Tpn Per Pharmacy] 1 EACH Each 1 Each MC PRN DAILY PRN TPN at 85cc/hour Sertraline Hcl 50 Mg Tablet 50 Mg PO DAILY 30 Days Lidocaine 35.44 Gm Oint...g. 1 Sang TP BID Reported Zofran Odt (Ondansetron) 4 Mg Tab.rapdis 1 Tab SL PRN Q8HRS PRN Zinc Oxide 56.7 Gm Oint...g. 56.7 Gm TP PRN BID Dilaudid (Hydromorphone Hcl) 2 Mg Tablet 1 Tab PO PRN QID PRN Lorazepam 0.5 Mg Tablet 0.5 Mg PO Q6HRS PRN Vitals/I & O Vital Sign - Last 24 Hours 12/28/18 12/28/18 12/28/18 12/28/18 14:27 14:57 15:00 19:05 Temp 97.5 97.8 97.5 97.8 Pulse 116 117 Resp 16 17 16 16 B/P (MAP) 163/73 (103) 161/97 (118) Pulse Ox 100 99 O2 Delivery Room Air Room Air Room Air Room Air 12/28/18 12/28/18 12/28/18 12/29/18 20:01 20:30 23:05 00:50 Temp 98.0 98.0 Pulse 107 Resp 20 B/P (MAP) 154/84 (107) Pulse Ox 99 O2 Delivery Room Air Room Air Room Air Room Air 12/29/18 12/29/18 12/29/18 12/29/18 01:54 03:08 05:28 07:00 Temp 98.8 98.4 98.8 98.4 Pulse 124 110 Resp 16 20 B/P (MAP) 131/67 (88) 127/73 (91) Pulse Ox 98 99 O2 Delivery Room Air Room Air Room Air Room Air 12/29/18 12/29/18 10:08 11:09 Temp 98.1 98.1 Pulse 104 Resp 16 20 B/P (MAP) 142/70 (94) Pulse Ox 99 O2 Delivery Room Air Room Air Intake and Output 12/28/18 12/28/18 12/29/18 15:00 23:00 07:00 Intake Total 240 ml 100 ml 200 ml Output Total 1100 ml 550 ml 800 ml Balance -860 ml -450 ml -600 ml Nutrition Consultation Dietary Evaluation: Recommendations by RD: PPN/TPN Comments: continue Home TPN and regular diet REC obtain Trig Expected Outcomes/Goals: to meet > 75% est nutr needs via TPN- met, goal ongoing Malnutrition Findings: Body Fat Depletion (Non Severe: Mild Depletion Weight Status: Underweight BENITA LUTZ MD Dec 29, 2018 12:35
[2018-12-29] MEDS: TPN PER PHARMACY MC PRN ×2 (12:57→12:58)
--- NOTE | 2018-12-29 13:04 | NUR ---
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: 5 feet, 4 inches Weight: 47.853975 kg Current diet: regular LABS: Sodium: 138 Potassium: 4.4 Chloride: 103 Calcium: 8.2 Corrected Calcium: 10.36 Magnesium: 1.8 CO2: 27 SCr: 0.5 Glucose: 111 Albumin: 1.3 AST: 13 ALT: 10 TPN FORMULA: TPN TYPE: Central Continuous AMINO ACIDS: 90 gm DEXTROSE: 285 gm LIPIDS: 30 gm SODIUM CHLORIDE: 200 mEq SODIUM ACETATE: - mEq SODIUM PHOSPHATE: 15 mmol POTASSIUM CHLORIDE: 60 mEq POTASSIUM ACETATE: - mEq POTASSIUM PHOSPHATE: 13.6 mmol MAGNESIUM: 30 mEq CALCIUM: 14 mEq INSULIN: - units MULTIPLE VITAMIN: 10 ml TRACE ELEMENTS: 1 ml(s) TPN PLAN: 12/[address] Cisneros's orders. Increased KCl 40 meq to 60 meq for drop in K, increase magnesium sulfate 25 meq to 30 meq and 2g rider given. Labs in AM. 12/28 CONT SAME 12/29 CONTINUE SAME R: Continue TPN as ordered Will monitor electrolytes, glucose, and tolerance to TPN. MOHINDER JOSE, [facility], 12/29/18 [id number]
--- NOTE | 2018-12-29 13:32 | PDOC ---
Subjective: Subjective: Better. No diarrhea. Tolerating PO. Says Dr. Almanza's in charge. Objective: Vital Signs: Vital Signs Date Time Temp Pulse Resp B/P (MAP) Pulse Ox O2 Delivery O2 Flow Rate FiO2 12/29/18 11:09 98.1 104 20 142/70 (94) 99 Room Air 98.1 Labs: Laboratory Tests Test 12/29/18 03:16 Sodium Level 138 mmol/L Potassium Level 4.4 mmol/L Chloride Level 103 mmol/L Carbon Dioxide Level 27 mmol/L Anion Gap 8 Blood Urea Nitrogen 8 mg/dL Creatinine 0.5 mg/dL Estimated GFR (Cockcroft-Gault) 150.8 Glucose Level 111 mg/dL Calcium Level 8.2 mg/dL Phosphorus Level 2.7 mg/dL Magnesium Level 1.8 mg/dL PE: GEN: NAD, eating pasta and chicken NEURO/PSYCH: A & O 3 A/P: Chronic n/v and abd pain - on TPN Fistulae drainage, abd wall abscess -- Stable from GI standpoint/ MAYUR-MIESHA MOREL Dec 29, 2018 13:32
[2018-12-29 15:12] VITALS: BP 133/76
[2018-12-29 19:50] VITALS: BP 143/81
[2018-12-29] MEDS: LORazepam 0.5 MG TABLET PO PRN (21:16)
[2018-12-29] MEDS ORDERED: DEXTROSE 70% IV SCH ×11 (22:00)
[2018-12-29] MEDS ORDERED: TOTAL PARENTERAL NUTRITION IV SCH ×11 (22:00)
[2018-12-29] MEDS ORDERED: AMINO ACID IV SCH ×11 (22:00)
[2018-12-29] MEDS ORDERED: [UNRECOGNIZED DRUG - OTHER] IV SCH ×11 (22:00)
[2018-12-29 23:44] VITALS: BP 150/84
[2018-12-30 03:29] VITALS: BP 171/99
[2018-12-30] MEDS: HYDROmorphone 2 MG/ML VIAL IVP PRN ×5 (03:44→20:07)
[2018-12-30] MEDS: MEROPENEM 500 MG in IV NORMAL SALINE 50ML 50 ML IV SCH ×3 (06:11→17:13)
[2018-12-30 07:15] VITALS: BP 135/79
[2018-12-30] MEDS ORDERED: ALTEPLASE 1MG SYRINGE. INT CAT PRN (07:15)
[2018-12-30] MEDS: ZINC OXIDE 20% TOPICAL OINTMENT 28GM TUBE. TP SCH (08:09)
[2018-12-30] MEDS: LIDOCAINE/PRILOCAINE TOPICAL CREAM 5GM TUBE. TP SCH (08:09)
[2018-12-30] MEDS: LACTOBACILLUS RHAMNOSUS GG 1 CAPSULE. PO SCH ×2 (08:09→22:38)
[2018-12-30] MEDS: PANTOPRAZOLE 40 MG TABLET.DR. PO SCH (08:09)
--- NOTE | 2018-12-30 08:40 | PDOC ---
Infectious Disease Note Subjective Subjective Better today Denies F/C/S/N/V/SOA States labs were obtained ROS ROS o/w neg Vital Sign Vital Signs Vital Signs Date Time Temp Pulse Resp B/P (MAP) Pulse Ox O2 Delivery O2 Flow Rate FiO2 12/30/18 08:15 17 100 Room Air 12/30/18 07:15 98.2 98 135/79 (97) 98.2 Physical Exam PHYSICAL EXAM GENERAL: alert, smiling. looks well on side of bed and eating HEENT: PERRL NECK: supple no JVD LUNGS: Clear bilaterally. HEART: S1, S2. ABDOMEN: Soft, nondistended. Dressed EXTREMITIES: Pedal edema DERMATOLOGIC: Warm to touch NEUROLOGIC: Alert and oriented x 3, grossly nonfocal. Power PICC without signs of complication. Labs Micro Raoultella ornithinolytica 4+ AEROBIC RES 2 Final Enterococcus faecalis 2+ ANTIMICROBIAL SUSCEPTIBILITY Final Comment S = Susceptible; I = Intermediate; R = Resistant P = Positive; N = Negative MICS are expressed in micrograms per mL Antibiotic RSLT#1 RSLT#2 RSLT#3 RSLT#4 Amoxicillin/Clavulanic Acid R>=32 Ampicillin R>=32 Cefazolin R>=64 Cefuroxime R>=64 Ciprofloxacin S<=0.25 Gentamicin S<=1 Imipenem S =0.5 Meropenem S<=0.25 Penicillin S =8 Escherichia coli 4+ AEROBIC RES 2 Final Citrobacter farmeri 4+ AEROBIC RES 3 Final Enterococcus faecalis 4+ ANTIMICROBIAL SUSCEPTIBILITY Final Comment S = Susceptible; I = Intermediate; R = Resistant P = Positive; N = Negative MICS are expressed in micrograms per mL Antibiotic RSLT#1 RSLT#2 RSLT#3 RSLT#4 Amoxicillin/Clavulanic Acid S =4 R>=32 Ampicillin I =16 Cefazolin R>=64 Cefepime S<=0.12 Ceftriaxone S<=0.25 CONTINUED ON NEXT PAGE RUN DATE: 12/28/18 PAGE 2 RUN TIME: 1314 [facility] [address] [place] [address] Krystian Gee M.D., Consumer Studies Professor SPEC: [id number] PATIENT: HERMAN MONCADA [id number] (Continued) Procedure Result ANTIMICROBIAL SUSCEPTIBILITY Final (continued) Cefuroxime I =16 R>=64 Ciprofloxacin R>=4 S<=0.25 Ertapenem S<=0.12 Gentamicin S<=1 S<=1 Imipenem S<=0.25 S<=0.25 Levofloxacin R>=8 Meropenem S<=0.25 S =1 Penicillin S =4 Piperacillin/Tazobactam S<=4 Tetracycline S =4 S<=1 Tobramycin S<=1 S<=1 Trimethoprim/Sulfa S<=20 S<=20 Vancomycin S =1 CONTINUED ON NEXT PAGE RUN DATE: 12/28/18 PAGE 2 RUN TIME: 13[address] [facility] [address] [place] [address] Krystian Gee M.D., Consumer Studies Professor SPEC: [id number] PATIENT: HERMAN MONCADA [id number] (Continued) Procedure Result ANTIMICROBIAL SUSCEPTIBILITY Final (continued) Tetracycline S =2 Tobramycin S<=1 Trimethoprim/Sulfa S<=20 Vancomycin 12/22/18 ANAEROBIC RES 1 Final Comment No anaerobic growth in 72 hours. AEROBIC CULT Final Final report AEROBIC RES 1 Final Escherichia coli 3+ ANTIMICROBIAL SUSCEPTIBILITY Final Comment S = Susceptible; I = Intermediate; R = Resistant P = Positive; N = Negative MICS are expressed in micrograms per mL Antibiotic RSLT#1 RSLT#2 RSLT#3 RSLT#4 Amoxicillin/Clavulanic Acid S =4 Ampicillin I =16 Cefepime S<=0.12 Ceftriaxone S<=0.25 Cefuroxime I =16 Ciprofloxacin R>=4 Ertapenem S<=0.12 Gentamicin S<=1 Imipenem S<=0.25 Levofloxacin R>=8 Meropenem S<=0.25 Piperacillin/Tazobactam S<=4 Tetracycline S =4 Tobramycin S<=1 Trimethoprim/Sulfa S<=20 Microbiology 12/21/18 Blood Culture - Preliminary, Resulted NO GROWTH AFTER 4 DAYS 12/22/18 Anaerobic/Aerobic Culture, Resulted Pending 12/22/18 Anaerobic Culture Result 1 (ROYA), Resulted Pending 12/22/18 Aerobic Culture - Preliminary, Resulted 12/22/18 Aerobic Culture Result 1 (ROYA) - Preliminary, Resulted 12/22/18 Gram Stain - Final, Resulted 12/22/18 Gram Stain Result 1 (ROYA) - Final, Resulted 12/22/18 Gram Stain Result 2 (ROYA) - Final, Resulted Objective Assessment Fever at home, afebrile here. Leukopenia - labs pending - off zosyn 12/29 Abdominal pain - better. Abdominal wall abscesses, spontaneously drained. Ecoli 12/22, cult 12/23 Citrobacter, Raoutella and Enterococcus and cult 12/25 with yeast History of enterocutaneous and vesicoenteric fistula, chronic with multiple surgeries, on chronic TPN. History of recurrent urinary tract infections, had 9 infections, Nausea and vomiting - better. Diarrhea. c. diff neg, 12/22 Plan Plan of Care Discontinue Zyvox (12/22) -12/25 discont Zosyn (12/22-12/29) begin Meropenem 12/29 Dose Micafungin CBC this am pending. D/w Hematology and no specimen in lab Probiotics General Surgery following f/u cultures Local wound care. D/w nursing ABBY MOTT MD Dec 30, 2018 08:40
[2018-12-30 10:30] LABS: CALCIUM 8.6 mg/dL (8.5-10.1); CREATININE 0.6 mg/dL (0.6-1.0); GFR 122.2; MAGNESIUM 2.1 mg/dL (1.8-2.4); POTASSIUM 4.5 mmol/L (3.5-5.1)
[2018-12-30 10:38] LABS: BASO % 1 % (0-3); EOS # 0.2 x10^3/uL (0.0-0.7); EOS % 3 % (0-3); HEMATOCRIT 23.6 % (36.0-47.0); HEMOGLOBIN 7.8 g/dL (12.0-15.5); LYMPH # 1.3 x10^3/uL (1.0-4.8); LYMPH % 18 % (24-48); MEAN CORPUSCULAR HEMOGLOBIN 30 pg (25-35); MEAN CORPUSCULAR HGB CONC 33 g/dL (31-37); MEAN CORPUSCULAR VOLUME 91 fL (79-100); MONO # 0.6 x10^3/uL (0.0-1.1); MONO % 9 % (0-9); NEUT # 4.9 x10^3/uL (1.8-7.7); NEUT % 69 % (31-73); PLATELET COUNT 372 x10^3/uL (140-400); RED CELL DISTRIBUTION WIDTH 17.4 % (11.5-14.5); WHITE BLOOD COUNT 7.1 x10^3/uL (4.0-11.0)
[2018-12-30 10:55] VITALS: BP 136/81
[2018-12-30] MEDS ORDERED: FUROSEMIDE 40 MG/4 ML VIAL. IVP ONE (11:15)
--- NOTE | 2018-12-30 11:16 | PDOC ---
PROGRESS NOTES Subjective Subjective feels okay. lab reviewed. hgb lower 7.8. Objective Objective Vital Signs Date Time Temp Pulse Resp B/P (MAP) Pulse Ox O2 Delivery O2 Flow Rate FiO2 12/30/18 08:45 16 Room Air 12/30/18 08:15 100 12/30/18 07:15 98.2 98 135/79 (97) 98.2 Intake and Output 12/30/18 06:59 Intake Total 1300 ml Output Total 750 ml Balance 550 ml Intake Oral 1300 ml Output Urine Total 750 ml # Voids 3 Physical Exam Abdomen: Soft, Other (EC fistula and abdominal wall abscess) Heart: Regular rate, Normal S1, Normal S2 Extremities: Other (2 plus edema legs) General: Alert HEENT: Atraumatic Lungs: Clear to auscultation Neuro: Normal speech Psych/Mental Status: Mental status NL Skin: No rashes Assessment Assessment Problems. Fever resolved She does not have leukocytosis or lactic acidosis 2. Severe hypokalemia. resolved 3. Severe hypomagnesemia.resolved 4. Enterocutaneous fistula. 5. peripheral edema legs 6. Severe protein-calorie malnutrition. 7. Enterovesical fistula. abdominal wall abscess. spontaneously draining. multiple organisms in culture anemia Medical Problems: (1) Fever Status: Acute (2) Severe protein-calorie malnutrition Status: Acute Plan Plan of Care iv lasix today continue iv meropenem and iv micafungin analgesics prn continue TPN monitor hgb and bmp Comment Review of Relevant I have reviewed the following items lucila (where applicable) has been applied. Labs Laboratory Tests Test 12/29/18 03:16 12/30/18 09:50 Sodium Level 138 mmol/L (136-145) 134 mmol/L (136-145) Potassium Level 4.4 mmol/L (3.5-5.1) 4.5 mmol/L (3.5-5.1) Chloride Level 103 mmol/L (98-107) 103 mmol/L (98-107) Carbon Dioxide Level 27 mmol/L (21-32) 24 mmol/L (21-32) Anion Gap 8 (6-14) 7 (6-14) Blood Urea Nitrogen 8 mg/dL (7-20) 9 mg/dL (7-20) Creatinine 0.5 mg/dL (0.6-1.0) 0.6 mg/dL (0.6-1.0) Estimated GFR (Cockcroft-Gault) 150.8 122.2 Glucose Level 111 mg/dL (70-99) 163 mg/dL (70-99) Calcium Level 8.2 mg/dL (8.5-10.1) 8.6 mg/dL (8.5-10.1) Phosphorus Level 2.7 mg/dL (2.6-4.7) Magnesium Level 1.8 mg/dL (1.8-2.4) 2.1 mg/dL (1.8-2.4) White Blood Count 7.1 x10^3/uL (4.0-11.0) Red Blood Count 2.60 x10^6/uL (3.50-5.40) Hemoglobin 7.8 g/dL (12.0-15.5) Hematocrit 23.6 % (36.0-47.0) Mean Corpuscular Volume 91 fL (79-100) Mean Corpuscular Hemoglobin 30 pg (25-35) Mean Corpuscular Hemoglobin Concent 33 g/dL (31-37) Red Cell Distribution Width 17.4 % (11.5-14.5) Platelet Count 372 x10^3/uL (140-400) Neutrophils (%) (Auto) 69 % (31-73) Lymphocytes (%) (Auto) 18 % (24-48) Monocytes (%) (Auto) 9 % (0-9) Eosinophils (%) (Auto) 3 % (0-3) Basophils (%) (Auto) 1 % (0-3) Neutrophils # (Auto) 4.9 x10^3/uL (1.8-7.7) Lymphocytes # (Auto) 1.3 x10^3/uL (1.0-4.8) Monocytes # (Auto) 0.6 x10^3/uL (0.0-1.1) Eosinophils # (Auto) 0.2 x10^3/uL (0.0-0.7) Basophils # (Auto) 0.0 x10^3/uL (0.0-0.2) Laboratory Tests Test 12/30/18 09:50 White Blood Count 7.1 x10^3/uL (4.0-11.0) Red Blood Count 2.60 x10^6/uL (3.50-5.40) Hemoglobin 7.8 g/dL (12.0-15.5) Hematocrit 23.6 % (36.0-47.0) Mean Corpuscular Volume 91 fL (79-100) Mean Corpuscular Hemoglobin 30 pg (25-35) Mean Corpuscular Hemoglobin Concent 33 g/dL (31-37) Red Cell Distribution Width 17.4 % (11.5-14.5) Platelet Count 372 x10^3/uL (140-400) Neutrophils (%) (Auto) 69 % (31-73) Lymphocytes (%) (Auto) 18 % (24-48) Monocytes (%) (Auto) 9 % (0-9) Eosinophils (%) (Auto) 3 % (0-3) Basophils (%) (Auto) 1 % (0-3) Neutrophils # (Auto) 4.9 x10^3/uL (1.8-7.7) Lymphocytes # (Auto) 1.3 x10^3/uL (1.0-4.8) Monocytes # (Auto) 0.6 x10^3/uL (0.0-1.1) Eosinophils # (Auto) 0.2 x10^3/uL (0.0-0.7) Basophils # (Auto) 0.0 x10^3/uL (0.0-0.2) Sodium Level 134 mmol/L (136-145) Potassium Level 4.5 mmol/L (3.5-5.1) Chloride Level 103 mmol/L (98-107) Carbon Dioxide Level 24 mmol/L (21-32) Anion Gap 7 (6-14) Blood Urea Nitrogen 9 mg/dL (7-20) Creatinine 0.6 mg/dL (0.6-1.0) Estimated GFR (Cockcroft-Gault) 122.2 Glucose Level 163 mg/dL (70-99) Calcium Level 8.6 mg/dL (8.5-10.1) Magnesium Level 2.1 mg/dL (1.8-2.4) Microbiology 12/21/18 Blood Culture - Final, Complete NO GROWTH AFTER 5 DAYS 12/25/18 Anaerobic/Aerobic Culture, Resulted Pending 12/25/18 Anaerobic Culture Result 1 (ROYA), Resulted Pending 12/25/18 Aerobic Culture - Preliminary, Resulted 12/25/18 Aerobic Culture Result 1 (ROYA) - Preliminary, Resulted 12/25/18 Aerobic Culture Result 2 (ROYA) - Preliminary, Resulted 12/25/18 Gram Stain - Final, Resulted 12/25/18 Gram Stain Result 1 (ROYA) - Final, Resulted 12/25/18 Gram Stain Result 2 (ROYA) - Final, Resulted 12/25/18 Gram Stain Result 3 (ROYA) - Final, Resulted 12/26/18 Fecal Leukocyte Stain - Final, Complete 12/23/18 Anaerobic/Aerobic Culture - Final, Complete 12/23/18 Anaerobic Culture Result 1 (ROYA) - Final, Complete 12/23/18 Aerobic Culture - Final, Complete 12/23/18 Aerobic Culture Result 1 (ROYA) - Final, Complete 12/23/18 Aerobic Culture Result 2 (ROYA) - Final, Complete 12/23/18 Antimicrobic Susceptibility - Final, Complete 12/23/18 Gram Stain - Final, Complete 12/23/18 Gram Stain Result 1 (ROYA) - Final, Complete 12/23/18 Gram Stain Result 2 (ROYA) - Final, Complete Medications Current Medications Piperacillin Sod/ Tazobactam Sod 4.5 gm/Sodium Chloride 100 ml @ 200 mls/hr 1X ONCE IV Last administered on 12/21/18at 22:23; Start 12/21/18 at 22:00; Stop 12/21/18 at 22:29; Status DC Vancomycin HCl (Vanco Per Pharmacy) 1 each 1X ONCE MC ; Start 12/21/18 at 21:45; Stop 12/21/18 at 21:46; Status UNV Sodium Chloride 1,000 ml @ 1,320 mls/hr Q46M IV Last administered on 12/21/18at 22:24; Start 12/21/18 at 21:41; Stop 12/21/18 at 22:40; Status DC Hydromorphone HCl (Dilaudid) 1 mg PRN Q2HR PRN IVP PAIN Last administered on 12/22/18at 10:03; Start 12/21/18 at 22:30; Stop 12/22/18 at 12:24; Status DC Potassium Chloride/Water 50 ml @ 50 mls/hr Q1H IV Last administered on 12/22/18at 01:09; Start 12/21/18 at 23:00; Stop 12/22/18 at 00:59; Status DC Potassium Chloride (Klor-Con) 40 meq 1X ONCE PO ; Start 12/21/18 at 23:00; Stop 12/21/18 at 23:01; Status DC Linezolid/Dextrose 300 ml @ 300 mls/hr Q12HR IV Last administered on 12/25/18at 08:31; Start 12/22/18 at 09:00; Stop 12/25/18 at 13:54; Status DC Ondansetron HCl (Zofran) 4 mg PRN Q8HRS PRN IV NAUSEA/VOMITING Last administered on 12/22/18at 11:38; Start 12/21/18 at 23:30; Stop 12/22/18 at 23:29; Status DC Fentanyl Citrate (Fentanyl 2ml Vial) 50 mcg PRN Q1HR PRN IV PAIN; Start 12/21/18 at 23:30; Stop 12/22/18 at 23:29; Status DC Sodium Chloride 1,000 ml @ 100 mls/hr Q10H IV Last administered on 12/22/18at 11:37; Start 12/21/18 at 23:30; Stop 12/22/18 at 12:24; Status DC Magnesium Sulfate 3 gm/Dextrose 106 ml @ 35.333 mls/ hr 1X ONCE IV Last administered on 12/22/18at 00:05; Start 12/21/18 at 23:45; Stop 12/22/18 at 02:44; Status DC Piperacillin Sod/ Tazobactam Sod 3.375 gm/Sodium Chloride 50 ml @ 100 mls/hr Q6HRS IV Last administered on 12/29/18at 05:28; Start 12/22/18 at 12:00; Stop 12/29/18 at 10:44; Status DC Hydromorphone HCl (Dilaudid) 2 mg PRN Q4HRS PRN IVP SEVERE PAIN 7-10 Last a dministered on 12/26/18at 03:44; Start 12/22/18 at 12:15; Stop 12/26/18 at 04:08; Status DC Hydromorphone HCl (Dilaudid) 4 mg PRN Q4HRS PRN IV SEVERE PAIN 7-10 Last administered on 12/25/18at 09:50; Start 12/22/18 at 12:15; Stop 12/25/18 at 12:09; Status DC Acetaminophen (Tylenol) 650 mg PRN Q6HRS PRN PO MILD PAIN / TEMP; Start 12/22/18 at 12:15 Ondansetron HCl (Zofran) 4 mg PRN Q6HRS PRN IV NAUSEA/VOMITING, 1st choice; Start 12/22/18 at 12:15 Lidocaine/ Prilocaine (Emla) 1 sang BID TP Last administered on 12/30/18 08:09; Start 12/22/18 at 21:00 Zinc Oxide (Zinc Oxide 20% Topical) 1 sang BID TP Last administered on 12/30/18 08:09; Start 12/22/18 at 21:00 Lorazepam (Ativan) 0.5 mg PRN Q6HRS PRN PO ANXIETY / AGITATION Last administered on 12/29/18 21:16; Start 12/22/18 at 12:15 Zolpidem Tartrate (Ambien) 5 mg PRN QHS PRN PO INSOMNIA Last administered on 12/27/18at 23:48; Start 12/22/18 at 12:15 Magnesium Sulfate 50 ml @ 25 mls/hr 1X ONCE IV Last administered on 12/22/18 13:40; Start 12/22/18 at 14:00; Stop 12/22/18 at 15:59; Status DC Potassium Chloride/Dextrose/ Sod Cl 1,000 ml @ 80 mls/hr [id number] IV Last administered on 12/22/18at 12:56; Start 12/22/18 at 13:00; Stop 12/22/18 at 22:00; Status DC Lactobacillus Rhamnosus (Culturelle) 1 cap BID PO Last administered on 12/30/18at 08:09; Start 12/22/18 at 21:00 Sodium Chloride 220 meq/Potassium Chloride 100 meq/ Potassium Phosphate 6.81 mmol/Magnesium Sulfate 40 meq/ Calcium Gluconate 14 meq/ Multivitamins 10 ml/Chromium/ Copper/Manganese/ Seleni/Zn 1 ml/ Sodium Phosphate 9.99 mmol/Total Parenteral Nutrition/Amino Acids/Dextrose/ Fat Emuls... 1,920 ml @ 80 mls/hr TPN CONT IV Last administered on 12/22/18 21:43; Start 12/22/18 at 22:00; Stop 12/23/18 at 21:59; Status DC Info (Tpn Per Pharmacy) 1 each PRN DAILY PRN MC SEE COMMENTS Last administered on 12/29/18at 12:58; Start 12/22/18 at 14:15 Info (Tpn Per Pharmacy) 1 each PRN DAILY PRN MC SEE COMMENTS; Start 12/22/18 at 14:30; Status Cancel Pantoprazole Sodium (Protonix) 40 mg DAILYAC PO Last administered on 12/30/18at 08:09; Start 12/23/18 at 07:30 Ondansetron HCl (Zofran) 8 mg PRN Q6HRS PRN IV NAUSEA/VOMITING, 2nd choice Last administered on 12/23/18at 18:08; Start 12/22/18 at 17:30 Potassium Chloride/Water 50 ml @ 50 mls/hr Q1H IV Last administered on 12/22/18at 20:14; Start 12/22/18 at 17:45; Stop 12/22/18 at 19:44; Status DC Sodium Chloride 200 meq/Potassium Chloride 100 meq/ Potassium Phosphate 13.6 mmol/Magnesium Sulfate 35 meq/ Calcium Gluconate 14 meq/ Multivitamins 10 ml/Chromium/ Copper/Manganese/ Seleni/Zn 1 ml/ Sodium Phosphate 9.99 mmol/Total Parenteral Nutrition/Amino Acids/Dextrose/ Fat Emuls... 1,920 ml @ 80 mls/hr TPN CONT IV Last administered on 12/23/18at 20:58; Start 12/23/18 at 22:00; Stop 12/24/18 at 21:59; Status DC Hydromorphone HCl (Dilaudid) 2 mg 1X ONCE IV Last administered on 12/23/18at 14:26; Start 12/23/18 at 14:30; Stop 12/23/18 at 14:31; Status DC Amlodipine Besylate (Norvasc) 5 mg DAILY PO Last administered on 12/27/18at 08:32; Start 12/24/18 at 13:00; Stop 12/27/18 at 11:58; Status DC Furosemide (Lasix) 20 mg 1X ONCE IVP Last administered on 12/24/18at 11:59; Start 12/24/18 at 11:45; Stop 12/24/18 at 11:48; Status DC Sodium Phosphate 20 mmol/Dextrose 256.6667 ml @ 64.167 m... 1X ONCE IV Last administered on 12/24/18at 13:40; Start 12/24/18 at 13:00; Stop 12/24/18 at 16:59; Status DC Lidocaine/ Epinephrine (LIDOCAINE 1%-EPI 1:100,000 Multi-Dose) 20 ml 1X ONCE INJ ; Start 12/24/18 at 12:15; Stop 12/24/18 at 12:16; Status DC Sodium Chloride 200 meq/Sodium Phosphate 15 mmol/ Potassium Chloride 50 meq/ Potassium Phosphate 13.6 mmol/Magnesium Sulfate 25 meq/ Calcium Gluconate 14 meq/ Multivitamins 10 ml/Chromium/ Copper/Manganese/ Seleni/Zn 1 ml/ Total Parenteral Nutrition/Amino Acids/Dextrose/ Fat Emuls... 1,920 ml @ 80 mls/hr TPN CONT IV Last administered on 12/24/18at 20:54; Start 12/24/18 at 22:00; Stop 12/25/18 at 21:59; Status DC Diphenhydramine HCl (Benadryl) 25 mg PRN Q6HRS PRN PO ITCHING Last administered on 12/24/18at 17:53; Start 12/24/18 at 17:45 Sodium Chloride 200 meq/Sodium Phosphate 15 mmol/ Potassium Chloride 40 meq/ Potassium Phosphate 13.6 mmol/Magnesium Sulfate 25 meq/ Calcium Gluconate 14 meq/ Multivitamins 10 ml/Chromium/ Copper/Manganese/ Seleni/Zn 1 ml/ Total Parenteral Nutrition/Amino Acids/Dextrose/ Fat Emuls... 1,920 ml @ 80 mls/hr TPN CONT IV Last administered on 12/25/18at 22:39; Start 12/25/18 at 22:00; St op 12/26/18 at 21:59; Status DC Hydromorphone HCl (Dilaudid) 2 mg PRN Q4HRS PRN IVP MODERATE PAIN 4-6 Last administered on 12/29/18at 00:50; Start 12/26/18 at 04:15 Hydromorphone HCl (Dilaudid) 4 mg PRN Q4HRS PRN IVP SEVERE PAIN 7-10 Last administered on 12/30/18at 08:15; Start 12/26/18 at 04:15 Furosemide (Lasix) 40 mg 1X ONCE IVP Last administered on 12/26/18at 12:16; Start 12/26/18 at 12:00; Stop 12/26/18 at 12:01; Status DC Sodium Chloride 200 meq/Sodium Phosphate 15 mmol/ Potassium Chloride 40 meq/ P otassium Phosphate 13.6 mmol/Magnesium Sulfate 25 meq/ Calcium Gluconate 14 meq/ Multivitamins 10 ml/Chromium/ Copper/Manganese/ Seleni/Zn 1 ml/ Total Parenteral Nutrition/Amino Acids/Dextrose/ Fat Emuls... 1,920 ml @ 80 mls/hr TPN CONT IV Last administered on 12/26/18at 21:44; Start 12/26/18 at 22:00; Stop 12/27/18 at 21:59; Status DC Sodium Phosphate 15 mmol/Dextrose 255 ml @ 63.75 mls/ hr 1X ONCE IV Last administered on 12/26/18at 14:53; Start 12/26/18 at 14:00; Stop 12/26/18 at 17:59; Status DC Hydromorphone HCl (Dilaudid) 2 mg 1X ONCE IV Last administered on 12/26/18at 14:52; Start 12/26/18 at 15:00; Stop 12/26/18 at 15:01; Status DC Magnesium Sulfate 50 ml @ 25 mls/hr 1X ONCE IV Last administered on 12/27/18at 13:12; Start 12/27/18 at 12:00; Stop 12/27/18 at 13:59; Status DC Sodium Chloride 200 meq/Sodium Phosphate 15 mmol/ Potassium Chloride 60 meq/ Potassium Phosphate 13.6 mmol/Magnesium Sulfate 30 meq/ Calcium Gluconate 14 meq/ Multivitamins 10 ml/Chromium/ Copper/Manganese/ Seleni/Zn 1 ml/ Total Parenteral Nutrition/Amino Acids/Dextrose/ Fat Emuls... 1,920 ml @ 80 mls/hr TPN CONT IV Last administered on 12/27/18at 21:29; Start 12/27/18 at 22:00; Stop 12/28/18 at 21:59; Status DC Micafungin Sodium 100 mg/Dextrose 100 ml @ 100 mls/hr Q24H IV Last administered on 12/29/18at 10:03; Start 12/28/18 at 10:00 Furosemide (Lasix) 40 mg 1X ONCE IVP Last administered on 12/28/18at 12:31; Start 12/28/18 at 11:30; Stop 12/28/18 at 11:31; Status DC Sodium Chloride 200 meq/Sodium Phosphate 15 mmol/ Potassium Chloride 60 meq/ Potassium Phosphate 13.6 mmol/Magnesium Sulfate 30 meq/ Calcium Gluconate 14 meq/ Multivitamins 10 ml/Chromium/ Copper/Manganese/ Seleni/Zn 1 ml/ Total Parenteral Nutrition/Amino Acids/Dextrose/ Fat Emuls... 1,920 ml @ 80 mls/hr T PN CONT IV Last administered on 12/28/18at 23:21; Start 12/28/18 at 22:00; Stop 12/29/18 at 21:59; Status DC Meropenem 500 mg/ Sodium Chloride 50 ml @ 100 mls/hr Q6HRS IV Last administered on 12/30/18at 06:11; Start 12/29/18 at 12:00 Sodium Chloride 200 meq/Sodium Phosphate 15 mmol/ Potassium Chloride 60 meq/ Potassium Phosphate 13.6 mmol/Magnesium Sulfate 30 meq/ Calcium Gluconate 14 meq/ Multivitamins 10 ml/Chromium/ Copper/Manganese/ Seleni/Zn 1 ml/ Total Parenteral Nutrition/Amino Acids/Dextrose/ Fat Emuls... 1,920 ml @ 80 mls/hr TPN CONT IV Last administered on 12/29/18at 21:08; Start 12/29/18 at 22:00; Stop 12/30/18 at 21:59 Alteplase, Recombinant (Cathflo For Central Catheter Clearance) 1 mg PRN 1X PRN INT CAT SEE COMMENTS Last administered on 12/30/18at 09:54; Start 12/30/18 at 07:15 Active Scripts Active Nystatin 15 Gm Cream..g. 1 Sang TP BID [Pantoprazole] 40 MG Tablet.dr 40 Mg PO DAILYAC 30 Days Zinc Oxide 56.7 Gm Oint...g. 1 Sang TP BID Ambien (Zolpidem Tartrate) 5 Mg Tablet 5 Mg PO PRN QHS PRN 30 Days [Tpn Per Pharmacy] 1 EACH Each 1 Each MC PRN DAILY PRN TPN at 85cc/hour Sertraline Hcl 50 Mg Tablet 50 Mg PO DAILY 30 Days Lidocaine 35.44 Gm Oint...g. 1 Sang TP BID Reported Zofran Odt (Ondansetron) 4 Mg Tab.rapdis 1 Tab SL PRN Q8HRS PRN Zinc Oxide 56.7 Gm Oint...g. 56.7 Gm TP PRN BID Dilaudid (Hydromorphone Hcl) 2 Mg Tablet 1 Tab PO PRN QID PRN Lorazepam 0.5 Mg Tablet 0.5 Mg PO Q6HRS PRN Vitals/I & O Vital Sign - Last 24 Hours 12/29/18 12/29/18 12/29/18 12/29/18 14:42 15:12 18:59 19:50 Temp 98.0 98.7 98.0 98.7 Pulse 108 116 Resp 17 20 16 20 B/P (MAP) 133/76 (95) 143/81 (101) Pulse Ox 97 98 O2 Delivery Room Air Room Air Room Air Room Air 12/29/18 12/29/18 12/29/18 12/30/18 20:00 23:35 23:44 03:29 Temp 98.0 98.0 98.0 98.0 Pulse 111 116 Resp 20 20 B/P (MAP) 150/84 (106) 171/99 (123) Pulse Ox 98 100 O2 Delivery Room Air Room Air Room Air Room Air 12/30/18 12/30/18 12/30/18 12/30/18 03:44 07:15 08:15 08:45 Temp 98.2 98.2 Pulse 98 Resp 18 17 16 B/P (MAP) 135/79 (97) Pulse Ox 99 100 O2 Delivery Room Air Room Air Room Air Room Air Intake and Output 12/29/18 12/29/18 12/30/18 14:59 22:59 06:59 Intake Total 200 ml 1100 ml Output Total 350 ml 400 ml Balance 200 ml -350 ml 700 ml Nutrition Consultation Dietary Evaluation: Recommendations by RD: PPN/TPN Comments: continue Home TPN and regular diet REC obtain Trig Expected Outcomes/Goals: to meet > 75% est nutr needs via TPN- met, goal ongoing Malnutrition Findings: Body Fat Depletion (Non Severe: Mild Depletion Weight Status: Underweight BENITA LUTZ MD Dec 30, 2018 11:16
[2018-12-30] MEDS: MICAFUNGIN 100 MG in IV DEXTROSE 5% 100ML 100 ML IV SCH (11:38)
[2018-12-30] MEDS: LORazepam 0.5 MG TABLET PO PRN ×2 (11:42→22:38)
[2018-12-30] MEDS: TPN PER PHARMACY MC PRN (11:53)
--- NOTE | 2018-12-30 11:54 | NUR ---
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 Height: 5 feet, 4 inches Weight: 47.600515 kg Current diet: regular LABS: Sodium: 134 Potassium: 4.5 Chloride: 103 Calcium: 8.6 Corrected Calcium: 10.76 Magnesium: 2.1 CO2: 24 SCr: 0.6 Glucose: 163 Albumin: 1.3 AST: 13 ALT: 10 TPN FORMULA: TPN TYPE: Central Continuous AMINO ACIDS: 90 gm DEXTROSE: 285 gm LIPIDS: 30 gm SODIUM CHLORIDE: 200 mEq SODIUM ACETATE: - mEq SODIUM PHOSPHATE: 15 mmol POTASSIUM CHLORIDE: 60 mEq POTASSIUM ACETATE: - mEq POTASSIUM PHOSPHATE: 13.6 mmol MAGNESIUM: 30 mEq CALCIUM: 14 mEq INSULIN: - units MULTIPLE VITAMIN: 10 ml TRACE ELEMENTS: 1 ml(s) TPN PLAN: continue same tpn R: Continue TPN as ordered Will monitor electrolytes, glucose, and tolerance to TPN. MOHINDER JOSE, [facility], 12/30/18 [id number]
--- NOTE | 2018-12-30 12:08 | PDOC ---
Subjective: Subjective: Says she's going to take some Lasix for swollen feet. Tolerating PO. No stools today. No bleeding. Objective: Vital Signs: Vital Signs Date Time Temp Pulse Resp B/P (MAP) Pulse Ox O2 Delivery O2 Flow Rate FiO2 12/30/18 10:55 98.4 106 20 136/81 (99) 100 Room Air 98.4 Labs: Laboratory Tests Test 12/30/18 09:50 White Blood Count 7.1 x10^3/uL Red Blood Count 2.60 x10^6/uL Hemoglobin 7.8 g/dL Hematocrit 23.6 % Mean Corpuscular Volume 91 fL Mean Corpuscular Hemoglobin 30 pg Mean Corpuscular Hemoglobin Concent 33 g/dL Red Cell Distribution Width 17.4 % Platelet Count 372 x10^3/uL Neutrophils (%) (Auto) 69 % Lymphocytes (%) (Auto) 18 % Monocytes (%) (Auto) 9 % Eosinophils (%) (Auto) 3 % Basophils (%) (Auto) 1 % Neutrophils # (Auto) 4.9 x10^3/uL Lymphocytes # (Auto) 1.3 x10^3/uL Monocytes # (Auto) 0.6 x10^3/uL Eosinophils # (Auto) 0.2 x10^3/uL Basophils # (Auto) 0.0 x10^3/uL Sodium Level 134 mmol/L Potassium Level 4.5 mmol/L Chloride Level 103 mmol/L Carbon Dioxide Level 24 mmol/L Anion Gap 7 Blood Urea Nitrogen 9 mg/dL Creatinine 0.6 mg/dL Estimated GFR (Cockcroft-Gault) 122.2 Glucose Level 163 mg/dL Calcium Level 8.6 mg/dL Magnesium Level 2.1 mg/dL PE: GEN: NAD LUNGS: CTAB HEART: RRR ABD: NABS, S/ND/NT NEURO/PSYCH: A & O 3 A/P: Chronic n/v and abd pain Fistulae drainage, abd wall abscess Chronic anemia - 'scopes up to date, no bleeding -- Continue same per GI. MIESHA RICO Dec 30, 2018 12:08
[2018-12-30 15:00] VITALS: BP 177/98
[2018-12-30 19:43] VITALS: BP 150/94
[2018-12-30] MEDS ORDERED: [UNRECOGNIZED DRUG - OTHER] IV SCH ×11 (22:00)
[2018-12-30] MEDS ORDERED: AMINO ACID IV SCH ×11 (22:00)
[2018-12-30] MEDS ORDERED: DEXTROSE 70% IV SCH ×11 (22:00)
[2018-12-30] MEDS ORDERED: TOTAL PARENTERAL NUTRITION IV SCH ×11 (22:00)
[2018-12-30 23:55] VITALS: BP 163/92
[2018-12-31] MEDS: ZINC OXIDE 20% TOPICAL OINTMENT 28GM TUBE. TP SCH ×3 (00:39→21:09)
[2018-12-31] MEDS: MEROPENEM 500 MG in IV NORMAL SALINE 50ML 50 ML IV SCH ×5 (00:39→23:05)
[2018-12-31] MEDS: LIDOCAINE/PRILOCAINE TOPICAL CREAM 5GM TUBE. TP SCH ×3 (00:39→21:09)
[2018-12-31] MEDS: HYDROmorphone 2 MG/ML VIAL IVP PRN ×6 (00:44→23:03)
[2018-12-31 03:22] VITALS: BP 158/103
[2018-12-31 06:19] LABS: BASO # 0.2 x10^3/uL (0.0-0.2); BASO % 2 % (0-3); EOS # 0.2 x10^3/uL (0.0-0.7); EOS % 3 % (0-3); HEMATOCRIT 23.4 % (36.0-47.0); HEMOGLOBIN 7.8 g/dL (12.0-15.5); LYMPH # 1.5 x10^3/uL (1.0-4.8); LYMPH % 16 % (24-48); MEAN CORPUSCULAR HEMOGLOBIN 30 pg (25-35); MEAN CORPUSCULAR HGB CONC 33 g/dL (31-37); MEAN CORPUSCULAR VOLUME 90 fL (79-100); MONO # 0.8 x10^3/uL (0.0-1.1); MONO % 9 % (0-9); NEUT # 6.2 x10^3/uL (1.8-7.7); NEUT % 70 % (31-73); PLATELET COUNT 364 x10^3/uL (140-400); RED CELL DISTRIBUTION WIDTH 17.4 % (11.5-14.5)
[2018-12-31 06:20] LABS: CALCIUM 8.9 mg/dL (8.5-10.1); CREATININE 0.6 mg/dL (0.6-1.0); GFR 122.2; POTASSIUM 4.8 mmol/L (3.5-5.1)
[2018-12-31 07:15] VITALS: BP 166/96
[2018-12-31] MEDS: LACTOBACILLUS RHAMNOSUS GG 1 CAPSULE. PO SCH ×2 (08:36→21:09)
[2018-12-31] MEDS: PANTOPRAZOLE 40 MG TABLET.DR. PO SCH (08:36)
[2018-12-31] MEDS: MICAFUNGIN 100 MG in IV DEXTROSE 5% 100ML 100 ML IV SCH (10:22)
--- NOTE | 2018-12-31 10:47 | PDOC ---
PROGRESS NOTES Subjective Subjective sleepy and just received iv dilaudid. lab reviewed. hgb stable 7.8. Objective Objective Vital Signs Date Time Temp Pulse Resp B/P (MAP) Pulse Ox O2 Delivery O2 Flow Rate FiO2 12/31/18 10:21 19 100 Room Air 12/31/18 07:15 98.2 116 166/96 (119) 98.2 Intake and Output 12/31/18 07:00 Intake Total 1400 ml Output Total 1575 ml Balance -175 ml Intake Oral 1400 ml Output Urine Total 1575 ml # Bowel Movements 1 Physical Exam Abdomen: Soft, Other (EC fistula and abdominal wall abscess draining) Heart: Regular rate, Normal S1, Normal S2 Extremities: Other (2 plus edema feet) General: Other (sleepy) HEENT: Atraumatic Lungs: Clear to auscultation Neuro: Other (sleepy) Psych/Mental Status: Other (sleepy) Skin: No rashes Assessment Assessment Problems Fever resolved She does not have leukocytosis or lactic acidosis 2. Severe hypokalemia. resolved 3. Severe hypomagnesemia.resolved 4. Enterocutaneous fistula. 5. peripheral edema legs 6. Severe protein-calorie malnutrition. 7. Enterovesical fistula. abdominal wall abscess. spontaneously draining. multiple organisms in culture anemia hypertension. bp high Medical Problems: (1) Fever Status: Acute (2) Severe protein-calorie malnutrition Status: Acute Plan Plan of Care decrease kcl in TPN iv lasix today start amlodipine continue iv meropenem Comment Review of Relevant I have reviewed the following items lucila (where applicable) has been applied. Labs Laboratory Tests Test 12/30/18 09:50 12/31/18 06:00 White Blood Count 7.1 x10^3/uL (4.0-11.0) 9.0 x10^3/uL (4.0-11.0) Red Blood Count 2.60 x10^6/uL (3.50-5.40) 2.60 x10^6/uL (3.50-5.40) Hemoglobin 7.8 g/dL (12.0-15.5) 7.8 g/dL (12.0-15.5) Hematocrit 23.6 % (36.0-47.0) 23.4 % (36.0-47.0) Mean Corpuscular Volume 91 fL (79-100) 90 fL (79-100) Mean Corpuscular Hemoglobin 30 pg (25-35) 30 pg (25-35) Mean Corpuscular Hemoglobin Concent 33 g/dL (31-37) 33 g/dL (31-37) Red Cell Distribution Width 17.4 % (11.5-14.5) 17.4 % (11.5-14.5) Platelet Count 372 x10^3/uL (140-400) 364 x10^3/uL (140-400) Neutrophils (%) (Auto) 69 % (31-73) 70 % (31-73) Lymphocytes (%) (Auto) 18 % (24-48) 16 % (24-48) Monocytes (%) (Auto) 9 % (0-9) 9 % (0-9) Eosinophils (%) (Auto) 3 % (0-3) 3 % (0-3) Basophils (%) (Auto) 1 % (0-3) 2 % (0-3) Neutrophils # (Auto) 4.9 x10^3/uL (1.8-7.7) 6.2 x10^3/uL (1.8-7.7) Lymphocytes # (Auto) 1.3 x10^3/uL (1.0-4.8) 1.5 x10^3/uL (1.0-4.8) Monocytes # (Auto) 0.6 x10^3/uL (0.0-1.1) 0.8 x10^3/uL (0.0-1.1) Eosinophils # (Auto) 0.2 x10^3/uL (0.0-0.7) 0.2 x10^3/uL (0.0-0.7) Basophils # (Auto) 0.0 x10^3/uL (0.0-0.2) 0.2 x10^3/uL (0.0-0.2) Sodium Level 134 mmol/L (136-145) 135 mmol/L (136-145) Potassium Level 4.5 mmol/L (3.5-5.1) 4.8 mmol/L (3.5-5.1) Chloride Level 103 mmol/L (98-107) 104 mmol/L (98-107) Carbon Dioxide Level 24 mmol/L (21-32) 25 mmol/L (21-32) Anion Gap 7 (6-14) 6 (6-14) Blood Urea Nitrogen 9 mg/dL (7-20) 12 mg/dL (7-20) Creatinine 0.6 mg/dL (0.6-1.0) 0.6 mg/dL (0.6-1.0) Estimated GFR (Cockcroft-Gault) 122.2 122.2 Glucose Level 163 mg/dL (70-99) 117 mg/dL (70-99) Calcium Level 8.6 mg/dL (8.5-10.1) 8.9 mg/dL (8.5-10.1) Magnesium Level 2.1 mg/dL (1.8-2.4) 2.0 mg/dL (1.8-2.4) Phosphorus Level 3.0 mg/dL (2.6-4.7) Laboratory Tests Test 12/31/18 06:00 White Blood Count 9.0 x10^3/uL (4.0-11.0) Red Blood Count 2.60 x10^6/uL (3.50-5.40) Hemoglobin 7.8 g/dL (12.0-15.5) Hematocrit 23.4 % (36.0-47.0) Mean Corpuscular Volume 90 fL (79-100) Mean Corpuscular Hemoglobin 30 pg (25-35) Mean Corpuscular Hemoglobin Concent 33 g/dL (31-37) Red Cell Distribution Width 17.4 % (11.5-14.5) Platelet Count 364 x10^3/uL (140-400) Neutrophils (%) (Auto) 70 % (31-73) Lymphocytes (%) (Auto) 16 % (24-48) Monocytes (%) (Auto) 9 % (0-9) Eosinophils (%) (Auto) 3 % (0-3) Basophils (%) (Auto) 2 % (0-3) Neutrophils # (Auto) 6.2 x10^3/uL (1.8-7.7) Lymphocytes # (Auto) 1.5 x10^3/uL (1.0-4.8) Monocytes # (Auto) 0.8 x10^3/uL (0.0-1.1) Eosinophils # (Auto) 0.2 x10^3/uL (0.0-0.7) Basophils # (Auto) 0.2 x10^3/uL (0.0-0.2) Sodium Level 135 mmol/L (136-145) Potassium Level 4.8 mmol/L (3.5-5.1) Chloride Level 104 mmol/L (98-107) Carbon Dioxide Level 25 mmol/L (21-32) Anion Gap 6 (6-14) Blood Urea Nitrogen 12 mg/dL (7-20) Creatinine 0.6 mg/dL (0.6-1.0) Estimated GFR (Cockcroft-Gault) 122.2 Glucose Level 117 mg/dL (70-99) Calcium Level 8.9 mg/dL (8.5-10.1) Phosphorus Level 3.0 mg/dL (2.6-4.7) Magnesium Level 2.0 mg/dL (1.8-2.4) Microbiology 12/21/18 Blood Culture - Final, Complete NO GROWTH AFTER 5 DAYS 12/25/18 Anaerobic/Aerobic Culture - Final, Resulted 12/25/18 Anaerobic Culture Result 1 (ROYA) - Final, Resulted 12/25/18 Aerobic Culture - Preliminary, Resulted 12/25/18 Aerobic Culture Result 1 (ROYA) - Preliminary, Resulted 12/25/18 Aerobic Culture Result 2 (ROYA) - Preliminary, Resulted 12/25/18 Aerobic Culture Result 3 (ROYA) - Preliminary, Resulted 12/25/18 Antimicrobic Susceptibility - Preliminary, Resulted 12/25/18 Gram Stain - Final, Resulted 12/25/18 Gram Stain Result 1 (ROYA) - Final, Resulted 12/25/18 Gram Stain Result 2 (ROYA) - Final, Resulted 12/25/18 Gram Stain Result 3 (ROYA) - Final, Resulted 12/26/18 Fecal Leukocyte Stain - Final, Complete 12/23/18 Anaerobic/Aerobic Culture - Final, Complete 12/23/18 Anaerobic Culture Result 1 (ROYA) - Final, Complete 12/23/18 Aerobic Culture - Final, Complete 12/23/18 Aerobic Culture Result 1 (ROYA) - Final, Complete 12/23/18 Aerobic Culture Result 2 (ROYA) - Final, Complete 12/23/18 Antimicrobic Susceptibility - Final, Complete 12/23/18 Gram Stain - Final, Complete 12/23/18 Gram Stain Result 1 (ROYA) - Final, Complete 12/23/18 Gram Stain Result 2 (ROYA) - Final, Complete Medications Current Medications Piperacillin Sod/ Tazobactam Sod 4.5 gm/Sodium Chloride 100 ml @ 200 mls/hr 1X ONCE IV Last administered on 12/21/18at 22:23; Start 12/21/18 at 22:00; Stop 12/21/18 at 22:29; Status DC Vancomycin HCl (Vanco Per Pharmacy) 1 each 1X ONCE MC ; Start 12/21/18 at 21:45; Stop 12/21/18 at 21:46; Status UNV Sodium Chloride 1,000 ml @ 1,320 mls/hr Q46M IV Last administered on 12/21/18at 22:24; Start 12/21/18 at 21:41; Stop 12/21/18 at 22:40; Status DC Hydromorphone HCl (Dilaudid) 1 mg PRN Q2HR PRN IVP PAIN Last administered on 12/22/18at 10:03; Start 12/21/18 at 22:30; Stop 12/22/18 at 12:24; Status DC Potassium Chloride/Water 50 ml @ 50 mls/hr Q1H IV Last administered on 12/22/18at 01:09; Start 12/21/18 at 23:00; Stop 12/22/18 at 00:59; Status DC Potassium Chloride (Klor-Con) 40 meq 1X ONCE PO ; Start 12/21/18 at 23:00; Stop 12/21/18 at 23:01; Status DC Linezolid/Dextrose 300 ml @ 300 mls/hr Q12HR IV Last administered on 12/25/18at 08:31; Start 12/22/18 at 09:00; Stop 12/25/18 at 13:54; Status DC Ondansetron HCl (Zofran) 4 mg PRN Q8HRS PRN IV NAUSEA/VOMITING Last a dministered on 12/22/18at 11:38; Start 12/21/18 at 23:30; Stop 12/22/18 at 23:29; Status DC Fentanyl Citrate (Fentanyl 2ml Vial) 50 mcg PRN Q1HR PRN IV PAIN; Start 12/21/18 at 23:30; Stop 12/22/18 at 23:29; Status DC Sodium Chloride 1,000 ml @ 100 mls/hr Q10H IV Last administered on 12/22/18 11:37; Start 12/21/18 at 23:30; Stop 12/22/18 at 12:24; Status DC Magnesium Sulfate 3 gm/Dextrose 106 ml @ 35.333 mls/ hr 1X ONCE IV Last administered on 12/22/18at 00:05; Start 12/21/18 at 23:45; Stop 12/22/18 at 02:44; Status DC Piperacillin Sod/ Tazobactam Sod 3.375 gm/Sodium Chloride 50 ml @ 100 mls/hr Q6HRS IV Last administered on 12/29/18at 05:28; Start 12/22/18 at 12:00; Stop 12/29/18 at 10:44; Status DC Hydromorphone HCl (Dilaudid) 2 mg PRN Q4HRS PRN IVP SEVERE PAIN 7-10 Last administered on 12/26/18at 03:44; Start 12/22/18 at 12:15; Stop 12/26/18 at 04:08; Status DC Hydromorphone HCl (Dilaudid) 4 mg PRN Q4HRS PRN IV SEVERE PAIN 7-10 Last administered on 12/25/18at 09:50; Start 12/22/18 at 12:15; Stop 12/25/18 at 12:09; Status DC Acetaminophen (Tylenol) 650 mg PRN Q6HRS PRN PO MILD PAIN / TEMP; Start 12/22/18 at 12:15 Ondansetron HCl (Zofran) 4 mg PRN Q6HRS PRN IV NAUSEA/VOMITING, 1st choice; Start 12/22/18 at 12:15 Lidocaine/ Prilocaine (Emla) 1 sang BID TP Last administered on 12/31/18at 08:37; Start 12/22/18 at 21:00 Zinc Oxide (Zinc Oxide 20% Topical) 1 sang BID TP Last administered on 12/31/18at 08:37; Start 12/22/18 at 21:00 Lorazepam (Ativan) 0.5 mg PRN Q6HRS PRN PO ANXIETY / AGITATION Last admi nistered on 12/30/18at 22:38; Start 12/22/18 at 12:15 Zolpidem Tartrate (Ambien) 5 mg PRN QHS PRN PO INSOMNIA Last administered on 12/27/18 23:48; Start 12/22/18 at 12:15 Magnesium Sulfate 50 ml @ 25 mls/hr 1X ONCE IV Last administered on 12/22/18at 13:40; Start 12/22/18 at 14:00; Stop 12/22/18 at 15:59; Status DC Potassium Chloride/Dextrose/ Sod Cl 1,000 ml @ 80 mls/hr [id number] IV Last administered on 12/22/18at 12:56; Start 12/22/18 at 13:00; Stop 12/22/18 at 22:00; Status DC Lactobacillus Rhamnosus (Culturelle) 1 cap BID PO Last administered on 12/31/18 08:36; Start 12/22/18 at 21:00 Sodium Chloride 220 meq/Potassium Chloride 100 meq/ Potassium Phosphate 6.81 mmol/Magnesium Sulfate 40 meq/ Calcium Gluconate 14 meq/ Multivitamins 10 ml/Chromium/ Copper/Manganese/ Seleni/Zn 1 ml/ Sodium Phosphate 9.99 mmol/Total Parenteral Nutrition/Amino Acids/Dextrose/ Fat Emuls... 1,920 ml @ 80 mls/hr TPN CONT IV Last administered on 12/22/18 21:43; Start 12/22/18 at 22:00; Stop 12/23/18 at 21:59; Status DC Info (Tpn Per Pharmacy) 1 each PRN DAILY PRN MC SEE COMMENTS Last administered on 12/30/18at 11:53; Start 12/22/18 at 14:15 Info (Tpn Per Pharmacy) 1 each PRN DAILY PRN MC SEE COMMENTS; Start 12/22/18 at 14:30; Status Cancel Pantoprazole Sodium (Protonix) 40 mg DAILYAC PO Last administered on 12/31/18at 08:36; Start 12/23/18 at 07:30 Ondansetron HCl (Zofran) 8 mg PRN Q6HRS PRN IV NAUSEA/VOMITING, 2nd choice Last administered on 12/23/18at 18:08; Start 12/22/18 at 17:30 Potassium Chloride/Water 50 ml @ 50 mls/hr Q1H IV Last administered on 12/22/18 20:14; Start 12/22/18 at 17:45; Stop 12/22/18 at 19:44; Status DC Sodium Chloride 200 meq/Potassium Chloride 100 meq/ Potassium Phosphate 13.6 mmol/Magnesium Sulfate 35 meq/ Calcium Gluconate 14 meq/ Multivitamins 10 ml/Chromium/ Copper/Manganese/ Seleni/Zn 1 ml/ Sodium Phosphate 9.99 mmol/Total Parenteral Nutrition/Amino Acids/Dextrose/ Fat Emuls... 1,920 ml @ 80 mls/hr TPN CONT IV Last administered on 12/23/18at 20:58; Start 12/23/18 at 22:00; Stop 12/24/18 at 21:59; Status DC Hydromorphone HCl (Dilaudid) 2 mg 1X ONCE IV Last administered on 12/23/18at 14:26; Start 12/23/18 at 14:30; Stop 12/23/18 at 14:31; Status DC Amlodipine Besylate (Norvasc) 5 mg DAILY PO Last administered on 12/27/18at 08:32; Start 12/24/18 at 13:00; Stop 12/27/18 at 11:58; Status DC Furosemide (Lasix) 20 mg 1X ONCE IVP Last administered on 12/24/18at 11:59; Start 12/24/18 at 11:45; Stop 12/24/18 at 11:48; Status DC Sodium Phosphate 20 mmol/Dextrose 256.6667 ml @ 64.167 m... 1X ONCE IV Last administered on 12/24/18at 13:40; Start 12/24/18 at 13:00; Stop 12/24/18 at 16:59; Status DC Lidocaine/ Epinephrine (LIDOCAINE 1%-EPI 1:100,000 Multi-Dose) 20 ml 1X ONCE INJ ; Start 12/24/18 at 12:15; Stop 12/24/18 at 12:16; Status DC Sodium Chloride 200 meq/Sodium Phosphate 15 mmol/ Potassium Chloride 50 meq/ Potassium Phosphate 13.6 mmol/Magnesium Sulfate 25 meq/ Calcium Gluconate 14 meq/ Multivitamins 10 ml/Chromium/ Copper/Manganese/ Seleni/Zn 1 ml/ Total Parenteral Nutrition/Amino Acids/Dextrose/ Fat Emuls... 1,920 ml @ 80 mls/hr TPN CONT IV Last administered on 12/24/18at 20:54; Start 12/24/18 at 22:00; Stop 12/25/18 at 21:59; Status DC Diphenhydramine HCl (Benadryl) 25 mg PRN Q6HRS PRN PO ITCHING Last administered on 12/24/18at 17:53; Start 12/24/18 at 17:45 Sodium Chloride 200 meq/Sodium Phosphate 15 mmol/ Potassium Chloride 40 meq/ Potassium Phosphate 13.6 mmol/Magnesium Sulfate 25 meq/ Calcium Gluconate 14 meq/ Multivitamins 10 ml/Chromium/ Copper/Manganese/ Seleni/Zn 1 ml/ Total Par enteral Nutrition/Amino Acids/Dextrose/ Fat Emuls... 1,920 ml @ 80 mls/hr TPN CONT IV Last administered on 12/25/18at 22:39; Start 12/25/18 at 22:00; Stop 12/26/18 at 21:59; Status DC Hydromorphone HCl (Dilaudid) 2 mg PRN Q4HRS PRN IVP MODERATE PAIN 4-6 Last administered on 12/29/18at 00:50; Start 12/26/18 at 04:15 Hydromorphone HCl (Dilaudid) 4 mg PRN Q4HRS PRN IVP SEVERE PAIN 7-10 Last administered on 12/31/18at 10:21; Start 12/26/18 at 04:15 Furosemide (Lasix) 40 mg 1X ONCE IVP Last administered on 12/26/18at 12:16; Start 12/26/18 at 12:00; Stop 12/26/18 at 12:01; Status DC Sodium Chloride 200 meq/Sodium Phosphate 15 mmol/ Potassium Chloride 40 meq/ Potassium Phosphate 13.6 mmol/Magnesium Sulfate 25 meq/ Calcium Gluconate 14 meq/ Multivitamins 10 ml/Chromium/ Copper/Manganese/ Seleni/Zn 1 ml/ Total Parenteral Nutrition/Amino Acids/Dextrose/ Fat Emuls... 1,920 ml @ 80 mls/hr TPN CONT IV Last administered on 12/26/18at 21:44; Start 12/26/18 at 22:00; Stop 12/27/18 at 21:59; Status DC Sodium Phosphate 15 mmol/Dextrose 255 ml @ 63.75 mls/ hr 1X ONCE IV Last administered on 12/26/18at 14:53; Start 12/26/18 at 14:00; Stop 12/26/18 at 17:59; Status DC Hydromorphone HCl (Dilaudid) 2 mg 1X ONCE IV Last administered on 12/26/18at 14:52; Start 12/26/18 at 15:00; Stop 12/26/18 at 15:01; Status DC Magnesium Sulfate 50 ml @ 25 mls/hr 1X ONCE IV Last administered on 12/27/18at 13:12; Start 12/27/18 at 12:00; Stop 12/27/18 at 13:59; Status DC Sodium Chloride 200 meq/Sodium Phosphate 15 mmol/ Potassium Chloride 60 meq/ Potassium Phosphate 13.6 mmol/Magnesium Sulfate 30 meq/ Calcium Gluconate 14 meq/ Multivitamins 10 ml/Chromium/ Copper/Manganese/ Seleni/Zn 1 ml/ Total Parenteral Nutrition/Amino Acids/Dextrose/ Fat Emuls... 1,920 ml @ 80 mls/hr TPN CONT IV Last administered on 12/27/18at 21:29; Start 12/27/18 at 22:00; Stop 12/28/18 at 21:59; Status DC Micafungin Sodium 100 mg/Dextrose 100 ml @ 100 mls/hr Q24H IV Last administered on 12/31/18at 10:22; Start 12/28/18 at 10:00 Furosemide (Lasix) 40 mg 1X ONCE IVP Last administered on 12/28/18at 12:31; Start 12/28/18 at 11:30; Stop 12/28/18 at 11:31; Status DC Sodium Chloride 200 meq/Sodium Phosphate 15 mmol/ Potassium Chloride 60 meq/ Potassium Phosphate 13.6 mmol/Magnesium Sulfate 30 meq/ Calcium Gluconate 14 meq/ Multivitamins 10 ml/Chromium/ Copper/Manganese/ Seleni/Zn 1 ml/ Total Parenteral Nutrition/Amino Acids/Dextrose/ Fat Emuls... 1,920 ml @ 80 mls/hr TPN CONT IV Last administered on 12/28/18at 23:21; Start 12/28/18 at 22:00; Stop 12/29/18 at 21:59; Status DC Meropenem 500 mg/ Sodium Chloride 50 ml @ 100 mls/hr Q6HRS IV Last administered on 12/31/18at 05:47; Start 12/29/18 at 12:00 Sodium Chloride 200 meq/Sodium Phosphate 15 mmol/ Potassium Chloride 60 meq/ Potassium Phosphate 13.6 mmol/Magnesium Sulfate 30 meq/ Calcium Gluconate 14 meq/ Multivitamins 10 ml/Chromium/ Copper/Manganese/ Seleni/Zn 1 ml/ Total Parenteral Nutrition/Amino Acids/Dextrose/ Fat Emuls... 1,920 ml @ 80 mls/hr TPN CONT IV Last administered on 12/29/18at 21:08; Start 12/29/18 at 22:00; Stop 12/30/18 at 21:59; Status DC Alteplase, Recombinant (Cathflo For Central Catheter Clearance) 1 mg PRN 1X PRN INT CAT SEE COMMENTS Last administered on 12/30/18at 09:54; Start 12/30/18 at 07:15 Furosemide (Lasix) 40 mg 1X ONCE IVP Last administered on 12/30/18at 11:42; Start 12/30/18 at 11:15; Stop 12/30/18 at 11:16; Status DC Sodium Chloride 200 meq/Sodium Phosphate 15 mmol/ Potassium Chloride 60 meq/ Potassium Phosphate 13.6 mmol/Magnesium Sulfate 30 meq/ Calcium Gluconate 14 meq/ Multivitamins 10 ml/Chromium/ Copper/Manganese/ Seleni/Zn 1 ml/ Total Parenteral Nutrition/Amino Acids/Dextrose/ Fat Emuls... 1,920 ml @ 80 mls/hr TPN CONT IV Last administered on 12/30/18at 22:38; Start 12/30/18 at 22:00; Stop 12/31/18 at 21:59 Active Scripts Active Nystatin 15 Gm Cream..g. 1 Sang TP BID [Pantoprazole] 40 MG Tablet.dr 40 Mg PO DAILYAC 30 Days Zinc Oxide 56.7 Gm Oint...g. 1 Sang TP BID Ambien (Zolpidem Tartrate) 5 Mg Tablet 5 Mg PO PRN QHS PRN 30 Days [Tpn Per Pharmacy] 1 EACH Each 1 Each PRN DAILY PRN TPN at 85cc/hour Sertraline Hcl 50 Mg Tablet 50 Mg PO DAILY 30 Days Lidocaine 35.44 Gm Oint...g. 1 Sang TP BID Reported Zofran Odt (Ondansetron) 4 Mg Tab.rapdis 1 Tab SL PRN Q8HRS PRN Zinc Oxide 56.7 Gm Oint...g. 56.7 Gm TP PRN BID Dilaudid (Hydromorphone Hcl) 2 Mg Tablet 1 Tab PO PRN QID PRN Lorazepam 0.5 Mg Tablet 0.5 Mg PO Q6HRS PRN Vitals/I & O Vital Sign - Last 24 Hours 12/30/18 12/30/18 12/30/18 12/30/18 10:55 13:15 15:00 17:15 Temp 98.4 97.7 98.4 97.7 Pulse 106 117 Resp 17 B/P (MAP) 136/81 (99) 177/98 (124) Pulse Ox 100 100 99 O2 Delivery Room Air Room Air Room Air Room Air 12/30/18 12/30/18 12/30/18 12/31/18 19:43 20:07 23:55 03:22 Temp 98.4 98.4 98.4 98.4 98.4 98.4 Pulse 118 113 81 Resp 18 B/P (MAP) 150/94 (112) 163/92 (115) 158/103 (121) Pulse Ox 98 100 90 O2 Delivery Room Air Room Air Room Air Room Air 12/31/18 12/31/18 12/31/18 12/31/18 06:40 07:15 08:00 10:21 Temp 98.2 98.2 Pulse 116 Resp B/P (MAP) 166/96 (119) Pulse Ox 100 100 100 O2 Delivery Room Air Room Air Room Air Room Air Intake and Output 0 12/30/18 12/30/18 12/31/18 15:00 23:00 07:00 Intake Total 800 ml 600 ml Output Total 750 ml 300 ml 525 ml Balance 50 ml -300 ml 75 ml Nutrition Consultation Dietary Evaluation: Recommendations by RD: PPN/TPN Comments: continue Home TPN and regular diet REC obtain Trig Expected Outcomes/Goals: to meet > 75% est nutr needs via TPN- met, goal ongoing Malnutrition Findings: Body Fat Depletion (Non Severe: Mild Depletion Weight Status: Underweight BENITA LUTZ MD Dec 31, 2018 10:47
[2018-12-31] MEDS ORDERED: FUROSEMIDE 40 MG/4 ML VIAL. IVP ONE (11:00)
[2018-12-31] MEDS: TPN PER PHARMACY MC PRN (11:17)
--- NOTE | 2018-12-31 11:20 | NUR ---
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 LABS: Sodium: 135 Potassium: 4.8 Chloride: 104 Calcium: 8.9 Corrected Calcium: 11.06 Magnesium: 2.0 CO2: 25 SCr: 0.6 Glucose: 117 Albumin: 1.3 AST: 13 ALT: 10 TPN FORMULA: TPN TYPE: Central Continuous AMINO ACIDS: 90 gm DEXTROSE: 285 gm LIPIDS: 30 gm SODIUM CHLORIDE: 200 mEq SODIUM ACETATE: - mEq SODIUM PHOSPHATE: 15 mmol POTASSIUM CHLORIDE: 50 mEq POTASSIUM ACETATE: - mEq POTASSIUM PHOSPHATE: 13.6 mmol MAGNESIUM: 30 mEq CALCIUM: 14 mEq INSULIN: - units MULTIPLE VITAMIN: 10 ml TRACE ELEMENTS: 1 ml(s) TPN PLAN: 12/31 decrease KCl to 50meq per R: Change TPN as above Will monitor electrolytes, glucose, and tolerance to TPN. [facility], 12/31/18 [id number]
[2018-12-31 11:35] VITALS: BP 149/78
[2018-12-31] MEDS: amLODIPine BESYLATE 5 MG TABLET PO SCH (11:57)
--- NOTE | 2018-12-31 13:34 | PDOC ---
Infectious Disease Note Subjective Subjective Not feeling ready to go home c/o swelling in her legs Denies pain/F/C/N/V ROS ROS per HPI Vital Sign Vital Signs Vital Signs Date Time Temp Pulse Resp B/P (MAP) Pulse Ox O2 Delivery O2 Flow Rate FiO2 12/31/18 11:57 116 166/96 12/31/18 11:35 98.7 18 100 Room Air 98.7 Physical Exam PHYSICAL EXAM GENERAL: Sitting on the side of the bed, combing her hair, NAD LUNGS: Clear bilaterally. HEART: S1, S2. ABDOMEN: Soft, nondistended. Dressed EXTREMITIES: BLE 2+ edema DERMATOLOGIC: Warm to touch NEUROLOGIC: Alert and oriented x 3, grossly nonfocal. Power PICC without signs of complication. Labs Lab Laboratory Tests Test 12/31/18 06:00 White Blood Count 9.0 x10^3/uL (4.0-11.0) Red Blood Count 2.60 x10^6/uL (3.50-5.40) Hemoglobin 7.8 g/dL (12.0-15.5) Hematocrit 23.4 % (36.0-47.0) Mean Corpuscular Volume 90 fL (79-100) Mean Corpuscular Hemoglobin 30 pg (25-35) Mean Corpuscular Hemoglobin Concent 33 g/dL (31-37) Red Cell Distribution Width 17.4 % (11.5-14.5) Platelet Count 364 x10^3/uL (140-400) Neutrophils (%) (Auto) 70 % (31-73) Lymphocytes (%) (Auto) 16 % (24-48) Monocytes (%) (Auto) 9 % (0-9) Eosinophils (%) (Auto) 3 % (0-3) Basophils (%) (Auto) 2 % (0-3) Neutrophils # (Auto) 6.2 x10^3/uL (1.8-7.7) Lymphocytes # (Auto) 1.5 x10^3/uL (1.0-4.8) Monocytes # (Auto) 0.8 x10^3/uL (0.0-1.1) Eosinophils # (Auto) 0.2 x10^3/uL (0.0-0.7) Basophils # (Auto) 0.2 x10^3/uL (0.0-0.2) Sodium Level 135 mmol/L (136-145) Potassium Level 4.8 mmol/L (3.5-5.1) Chloride Level 104 mmol/L (98-107) Carbon Dioxide Level 25 mmol/L (21-32) Anion Gap 6 (6-14) Blood Urea Nitrogen 12 mg/dL (7-20) Creatinine 0.6 mg/dL (0.6-1.0) Estimated GFR (Cockcroft-Gault) 122.2 Glucose Level 117 mg/dL (70-99) Calcium Level 8.9 mg/dL (8.5-10.1) Phosphorus Level 3.0 mg/dL (2.6-4.7) Magnesium Level 2.0 mg/dL (1.8-2.4) Micro Microbiology 12/21/18 Blood Culture - Preliminary, Resulted NO GROWTH AFTER 2 DAYS Abdominal abscess GRAM STAIN RES 2 Final Comment Few gram negative rods. Objective Assessment Fever at home, afebrile here. Leukopenia - labs pending - off Zosyn 12/29 Abdominal pain - better. Abdominal wall abscesses, spontaneously drained. Ecoli, Citrobacter, Raoultella, Enterococcus, Klebsiella and yeast History of enterocutaneous and vesicoenteric fistula, chronic with multiple surgeries, on chronic TPN. History of recurrent urinary tract infections, had 9 infections, Nausea and vomiting - better. Diarrhea. c. diff neg, 12/22 Plan Plan of Care continue Meropenem 12/29 and micafungin off Zyvox (12/22) -12/25 off Zosyn (12/22-12/29) Probiotics Local wound care. Leg elevation Attending Co-Sign The patient was seen and interviewed as well as examined at the bedside. The chart was reviewed. The case was discussed. Agree with the plan of care. MARICARMEN COLEMAN APRN Dec 31, 2018 13:34 JOSSY TATUM MD Dec 31, 2018 13:38
[2018-12-31 15:00] VITALS: BP 146/78
[2018-12-31] MEDS: LORazepam 0.5 MG TABLET PO PRN (17:53)
[2018-12-31 19:47] VITALS: BP 156/84
[2018-12-31] MEDS ORDERED: [UNRECOGNIZED DRUG - OTHER] IV SCH ×11 (22:00)
[2018-12-31] MEDS ORDERED: TOTAL PARENTERAL NUTRITION IV SCH ×11 (22:00)
[2018-12-31] MEDS ORDERED: AMINO ACID IV SCH ×11 (22:00)
[2018-12-31] MEDS ORDERED: DEXTROSE 70% IV SCH ×11 (22:00)
[2018-12-31] MEDS: ZOLPIDEM 5 MG TABLET. PO PRN (23:02)
[2018-12-31 23:45] VITALS: BP 153/78
[2019-01-01] MEDS: LORazepam 0.5 MG TABLET PO PRN ×3 (03:49→22:45)
[2019-01-01] MEDS: HYDROmorphone 2 MG/ML VIAL IVP PRN ×4 (03:51→19:51)
[2019-01-01] MEDS: MEROPENEM 500 MG in IV NORMAL SALINE 50ML 50 ML IV SCH ×4 (06:34→22:56)
[2019-01-01 07:06] LABS: CALCIUM 8.6 mg/dL (8.5-10.1); CREATININE 0.6 mg/dL (0.6-1.0); GFR 122.2; MAGNESIUM 1.9 mg/dL (1.8-2.4); POTASSIUM 4.7 mmol/L (3.5-5.1)
[2019-01-01 07:50] VITALS: BP 128/91
[2019-01-01] MEDS: MICAFUNGIN 100 MG in IV DEXTROSE 5% 100ML 100 ML IV SCH (09:31)
--- NOTE | 2019-01-01 10:44 | PDOC ---
PROGRESS NOTES Subjective Subjective sleeping . bp is okay. lab reviewed. Objective Objective Vital Signs Date Time Temp Pulse Resp B/P (MAP) Pulse Ox O2 Delivery O2 Flow Rate FiO2 01/01/19 07:50 98.4 103 17 128/91 (103) 93 Room Air 98.4 Intake and Output 01/01/19 07:00 Intake Total 580 ml Output Total 950 ml Balance -370 ml Intake Oral 580 ml Output Urine Total 950 ml # Voids 1 Physical Exam Abdomen: Soft, Other (EC fistula) Extremities: Other (2 plus edema feet) General: Other (sleeping) HEENT: Atraumatic Lungs: Clear to auscultation Neuro: Other (sleeping) Psych/Mental Status: Other (sleeping) Skin: No rashes Assessment Assessment ProblemsFever resolved She does not have leukocytosis or lactic acidosis 2. Severe hypokalemia. resolved 3. Severe hypomagnesemia.resolved 4. Enterocutaneous fistula. 5. peripheral edema legs 6. Severe protein-calorie malnutrition. 7. Enterovesical fistula. abdominal wall abscess. spontaneously draining. multiple organisms in culture anemia hypertension. Medical Problems: (1) Fever Status: Acute (2) Severe protein-calorie malnutrition Status: Acute Plan Plan of Care continue meropenem and micafungin continue TPN IV lasix today lab tomorrow scd for dvt prophylaxis continue amlodipine Comment Review of Relevant I have reviewed the following items lucila (where applicable) has been applied. Labs Laboratory Tests Test 12/31/18 06:00 01/01/19 06:40 White Blood Count 9.0 x10^3/uL (4.0-11.0) Red Blood Count 2.60 x10^6/uL (3.50-5.40) Hemoglobin 7.8 g/dL (12.0-15.5) Hematocrit 23.4 % (36.0-47.0) Mean Corpuscular Volume 90 fL (79-100) Mean Corpuscular Hemoglobin 30 pg (25-35) Mean Corpuscular Hemoglobin Concent 33 g/dL (31-37) Red Cell Distribution Width 17.4 % (11.5-14.5) Platelet Count 364 x10^3/uL (140-400) Neutrophils (%) (Auto) 70 % (31-73) Lymphocytes (%) (Auto) 16 % (24-48) Monocytes (%) (Auto) 9 % (0-9) Eosinophils (%) (Auto) 3 % (0-3) Basophils (%) (Auto) 2 % (0-3) Neutrophils # (Auto) 6.2 x10^3/uL (1.8-7.7) Lymphocytes # (Auto) 1.5 x10^3/uL (1.0-4.8) Monocytes # (Auto) 0.8 x10^3/uL (0.0-1.1) Eosinophils # (Auto) 0.2 x10^3/uL (0.0-0.7) Basophils # (Auto) 0.2 x10^3/uL (0.0-0.2) Sodium Level 135 mmol/L (136-145) 135 mmol/L (136-145) Potassium Level 4.8 mmol/L (3.5-5.1) 4.7 mmol/L (3.5-5.1) Chloride Level 104 mmol/L (98-107) 104 mmol/L (98-107) Carbon Dioxide Level 25 mmol/L (21-32) 26 mmol/L (21-32) Anion Gap 6 (6-14) 5 (6-14) Blood Urea Nitrogen 12 mg/dL (7-20) 16 mg/dL (7-20) Creatinine 0.6 mg/dL (0.6-1.0) 0.6 mg/dL (0.6-1.0) Estimated GFR (Cockcroft-Gault) 122.2 122.2 Glucose Level 117 mg/dL (70-99) 113 mg/dL (70-99) Calcium Level 8.9 mg/dL (8.5-10.1) 8.6 mg/dL (8.5-10.1) Phosphorus Level 3.0 mg/dL (2.6-4.7) Magnesium Level 2.0 mg/dL (1.8-2.4) 1.9 mg/dL (1.8-2.4) Laboratory Tests Test 01/01/19 06:40 Sodium Level 135 mmol/L (136-145) Potassium Level 4.7 mmol/L (3.5-5.1) Chloride Level 104 mmol/L (98-107) Carbon Dioxide Level 26 mmol/L (21-32) Anion Gap 5 (6-14) Blood Urea Nitrogen 16 mg/dL (7-20) Creatinine 0.6 mg/dL (0.6-1.0) Estimated GFR (Cockcroft-Gault) 122.2 Glucose Level 113 mg/dL (70-99) Calcium Level 8.6 mg/dL (8.5-10.1) Magnesium Level 1.9 mg/dL (1.8-2.4) Microbiology 12/21/18 Blood Culture - Final, Complete NO GROWTH AFTER 5 DAYS 12/25/18 Anaerobic/Aerobic Culture - Final, Complete 12/25/18 Anaerobic Culture Result 1 (ROYA) - Final, Complete 12/25/18 Aerobic Culture - Final, Complete 12/25/18 Aerobic Culture Result 1 (ROYA) - Final, Complete 12/25/18 Aerobic Culture Result 2 (ROYA) - Final, Complete 12/25/18 Aerobic Culture Result 3 (ROYA) - Final, Complete 12/25/18 Antimicrobic Susceptibility - Final, Complete 12/25/18 Gram Stain - Final, Complete 12/25/18 Gram Stain Result 1 (ROYA) - Final, Complete 12/25/18 Gram Stain Result 2 (ROYA) - Final, Complete 12/25/18 Gram Stain Result 3 (ROYA) - Final, Complete 12/26/18 Fecal Leukocyte Stain - Final, Complete 12/23/18 Anaerobic/Aerobic Culture - Final, Complete 12/23/18 Anaerobic Culture Result 1 (ROYA) - Final, Complete 12/23/18 Aerobic Culture - Final, Complete 12/23/18 Aerobic Culture Result 1 (ROYA) - Final, Complete 12/23/18 Aerobic Culture Result 2 (ROYA) - Final, Complete 12/23/18 Antimicrobic Susceptibility - Final, Complete 12/23/18 Gram Stain - Final, Complete 12/23/18 Gram Stain Result 1 (ROYA) - Final, Complete 12/23/18 Gram Stain Result 2 (ROYA) - Final, Complete Medications Current Medications Piperacillin Sod/ Tazobactam Sod 4.5 gm/Sodium Chloride 100 ml @ 200 mls/hr 1X ONCE IV Last administered on 12/21/18at 22:23; Start 12/21/18 at 22:00; Stop 12/21/18 at 22:29; Status DC Vancomycin HCl (Vanco Per Pharmacy) 1 each 1X ONCE MC ; Start 12/21/18 at 21:45; Stop 12/21/18 at 21:46; Status UNV Sodium Chloride 1,000 ml @ 1,320 mls/hr Q46M IV Last administered on 12/21/18at 22:24; Start 12/21/18 at 21:41; Stop 12/21/18 at 22:40; Status DC Hydromorphone HCl (Dilaudid) 1 mg PRN Q2HR PRN IVP PAIN Last administered on 12/22/18at 10:03; Start 12/21/18 at 22:30; Stop 12/22/18 at 12:24; Status DC Potassium Chloride/Water 50 ml @ 50 mls/hr Q1H IV Last administered on 12/22/18at 01:09; Start 12/21/18 at 23:00; Stop 12/22/18 at 00:59; Status DC Potassium Chloride (Klor-Con) 40 meq 1X ONCE PO ; Start 12/21/18 at 23:00; Stop 12/21/18 at 23:01; Status DC Linezolid/Dextrose 300 ml @ 300 mls/hr Q12HR IV Last administered on 12/25/18at 08:31; Start 12/22/18 at 09:00; Stop 12/25/18 at 13:54; Status DC Ondansetron HCl (Zofran) 4 mg PRN Q8HRS PRN IV NAUSEA/VOMITING Last administered on 12/22/18at 11:38; Start 12/21/18 at 23:30; Stop 12/22/18 at 23:29; Status DC Fentanyl Citrate (Fentanyl 2ml Vial) 50 mcg PRN Q1HR PRN IV PAIN; Start 12/21/18 at 23:30; Stop 12/22/18 at 23:29; Status DC Sodium Chloride 1,000 ml @ 100 mls/hr Q10H IV Last administered on 12/22/18at 11:37; Start 12/21/18 at 23:30; Stop 12/22/18 at 12:24; Status DC Magnesium Sulfate 3 gm/Dextrose 106 ml @ 35.333 mls/ hr 1X ONCE IV Last administered on 12/22/18at 00:05; Start 12/21/18 at 23:45; Stop 12/22/18 at 02:44; Status DC Piperacillin Sod/ Tazobactam Sod 3.375 gm/Sodium Chloride 50 ml @ 100 mls/hr Q6HRS IV Last administered on 12/29/18 05:28; Start 12/22/18 at 12:00; Stop 12/29/18 at 10:44; Status DC Hydromorphone HCl (Dilaudid) 2 mg PRN Q4HRS PRN IVP SEVERE PAIN 7-10 Last administered on 12/26/18 03:44; Start 12/22/18 at 12:15; Stop 12/26/18 at 04:08; Status DC Hydromorphone HCl (Dilaudid) 4 mg PRN Q4HRS PRN IV SEVERE PAIN 7-10 Last administered on 12/25/18 09:50; Start 12/22/18 at 12:15; Stop 12/25/18 at 12:09; Status DC Acetaminophen (Tylenol) 650 mg PRN Q6HRS PRN PO MILD PAIN / TEMP; Start 12/22/18 at 12:15 Ondansetron HCl (Zofran) 4 mg PRN Q6HRS PRN IV NAUSEA/VOMITING, 1st choice; Start 12/22/18 at 12:15 Lidocaine/ Prilocaine (Emla) 1 sang BID TP Last administered on 12/31/18 21:09; Start 12/22/18 at 21:00 Zinc Oxide (Zinc Oxide 20% Topical) 1 sang BID TP Last administered on 12/31/18at 21:09; Start 12/22/18 at 21:00 Lorazepam (Ativan) 0.5 mg PRN Q6HRS PRN PO ANXIETY / AGITATION Last administered on 01/01/19at 03:49; Start 12/22/18 at 12:15 Zolpidem Tartrate (Ambien) 5 mg PRN QHS PRN PO INSOMNIA Last administered on 12/31/18 23:02; Start 12/22/18 at 12:15 Magnesium Sulfate 50 ml @ 25 mls/hr 1X ONCE IV Last administered on 12/22/18 13:40; Start 12/22/18 at 14:00; Stop 12/22/18 at 15:59; Status DC Potassium Chloride/Dextrose/ Sod Cl 1,000 ml @ 80 mls/hr [id number] IV Last administered on 12/22/18at 12:56; Start 12/22/18 at 13:00; Stop 12/22/18 at 22:00; Status DC Lactobacillus Rhamnosus (Culturelle) 1 cap BID PO Last administered on 12/31/18at 21:09; Start 12/22/18 at 21:00 Sodium Chloride 220 meq/Potassium Chloride 100 meq/ Potassium Phosphate 6.81 mmol/Magnesium Sulfate 40 meq/ Calcium Gluconate 14 meq/ Multivitamins 10 ml/Chromium/ Copper/Manganese/ Seleni/Zn 1 ml/ Sodium Phosphate 9.99 mmol/Total Parenteral Nutrition/Amino Acids/Dextrose/ Fat Emuls... 1,920 ml @ 80 mls/hr TPN CONT IV Last administered on 12/22/18at 21:43; Start 12/22/18 at 22:00; Stop 12/23/18 at 21:59; Status DC Info (Tpn Per Pharmacy) 1 each PRN DAILY PRN MC SEE COMMENTS Last administered on 12/31/18at 11:17; Start 12/22/18 at 14:15 Info (Tpn Per Pharmacy) 1 each PRN DAILY PRN MC SEE COMMENTS; Start 12/22/18 at 14:30; Status Cancel Pantoprazole Sodium (Protonix) 40 mg DAILYAC PO Last administered on 12/31/18at 08:36; Start 12/23/18 at 07:30 Ondansetron HCl (Zofran) 8 mg PRN Q6HRS PRN IV NAUSEA/VOMITING, 2nd choice Last administered on 12/23/18at 18:08; Start 12/22/18 at 17:30 Potassium Chloride/Water 50 ml @ 50 mls/hr Q1H IV Last administered on 12/22/18at 20:14; Start 12/22/18 at 17:45; Stop 12/22/18 at 19:44; Status DC Sodium Chloride 200 meq/Potassium Chloride 100 meq/ Potassium Phosphate 13.6 mmol/Magnesium Sulfate 35 meq/ Calcium Gluconate 14 meq/ Multivitamins 10 ml/Chromium/ Copper/Manganese/ Seleni/Zn 1 ml/ Sodium Phosphate 9.99 mmol/Total Parenteral Nutrition/Amino Acids/Dextrose/ Fat Emuls... 1,920 ml @ 80 mls/hr TPN CONT IV Last administered on 12/23/18at 20:58; Start 12/23/18 at 22:00; Stop 12/24/18 at 21:59; Status DC Hydromorphone HCl (Dilaudid) 2 mg 1X ONCE IV Last administered on 12/23/18at 14:26; Start 12/23/18 at 14:30; Stop 12/23/18 at 14:31; Status DC Amlodipine Besylate (Norvasc) 5 mg DAILY PO Last administered on 12/27/18at 08:32; Start 12/24/18 at 13:00; Stop 12/27/18 at 11:58; Status DC Furosemide (Lasix) 20 mg 1X ONCE IVP Last administered on 12/24/18at 11:59; Start 12/24/18 at 11:45; Stop 12/24/18 at 11:48; Status DC Sodium Phosphate 20 mmol/Dextrose 256.6667 ml @ 64.167 m... 1X ONCE IV Last administered on 12/24/18at 13:40; Start 12/24/18 at 13:00; Stop 12/24/18 at 16:59; Status DC Lidocaine/ Epinephrine (LIDOCAINE 1%-EPI 1:100,000 Multi-Dose) 20 ml 1X ONCE INJ ; Start 12/24/18 at 12:15; Stop 12/24/18 at 12:16; Status DC Sodium Chloride 200 meq/Sodium Phosphate 15 mmol/ Potassium Chloride 50 meq/ Potassium Phosphate 13.6 mmol/Magnesium Sulfate 25 meq/ Calcium Gluconate 14 meq/ Multivitamins 10 ml/Chromium/ Copper/Manganese/ Seleni/Zn 1 ml/ Total Parenteral Nutrition/Amino Acids/Dextrose/ Fat Emuls... 1,920 ml @ 80 mls/hr TPN CONT IV Last administered on 12/24/18at 20:54; Start 12/24/18 at 22:00; Stop 12/25/18 at 21:59; Status DC Diphenhydramine HCl (Benadryl) 25 mg PRN Q6HRS PRN PO ITCHING Last administered on 12/24/18at 17:53; Start 12/24/18 at 17:45 Sodium Chloride 200 meq/Sodium Phosphate 15 mmol/ Potassium Chloride 40 meq/ Potassium Phosphate 13.6 mmol/Magnesium Sulfate 25 meq/ Calcium Gluconate 14 meq/ Multivitamins 10 ml/Chromium/ Copper/Manganese/ Seleni/Zn 1 ml/ Total Parenteral Nutrition/Amino Acids/Dextrose/ Fat Emuls... 1,920 ml @ 80 mls/hr TPN CONT IV Last administered on 12/25/18at 22:39; Start 12/25/18 at 22:00; Stop 12/26/18 at 21:59; Status DC Hydromorphone HCl (Dilaudid) 2 mg PRN Q4HRS PRN IVP MODERATE PAIN 4-6 Last administered on 12/29/18at 00:50; Start 12/26/18 at 04:15 Hydromorphone HCl (Dilaudid) 4 mg PRN Q4HRS PRN IVP SEVERE PAIN 7-10 Last administered on 01/01/19at 03:51; Start 12/26/18 at 04:15 Furosemide (Lasix) 40 mg 1X ONCE IVP Last administered on 12/26/18at 12:16; Start 12/26/18 at 12:00; Stop 12/26/18 at 12:01; Status DC Sodium Chloride 200 meq/Sodium Phosphate 15 mmol/ Potassium Chloride 40 meq/ Potassium Phosphate 13.6 mmol/Magnesium Sulfate 25 meq/ Calcium Gluconate 14 meq/ Multivitamins 10 ml/Chromium/ Copper/Manganese/ Seleni/Zn 1 ml/ Total Parenteral Nutrition/Amino Acids/Dextrose/ Fat Emuls... 1,920 ml @ 80 mls/hr TPN CONT IV Last administered on 12/26/18at 21:44; Start 12/26/18 at 22:00; Stop 12/27/18 at 21:59; Status DC Sodium Phosphate 15 mmol/Dextrose 255 ml @ 63.75 mls/ hr 1X ONCE IV Last administered on 12/26/18at 14:53; Start 12/26/18 at 14:00; Stop 12/26/18 at 17:59; Status DC Hydromorphone HCl (Dilaudid) 2 mg 1X ONCE IV Last administered on 12/26/18at 14:52; Start 12/26/18 at 15:00; Stop 12/26/18 at 15:01; Status DC Magnesium Sulfate 50 ml @ 25 mls/hr 1X ONCE IV Last administered on 12/27/18at 13:12; Start 12/27/18 at 12:00; Stop 12/27/18 at 13:59; Status DC Sodium Chloride 200 meq/Sodium Phosphate 15 mmol/ Potassium Chloride 60 meq/ Potassium Phosphate 13.6 mmol/Magnesium Sulfate 30 meq/ Calcium Gluconate 14 meq/ Multivitamins 10 ml/Chromium/ Copper/Manganese/ Seleni/Zn 1 ml/ Total Parenteral Nutrition/Amino Acids/Dextrose/ Fat Emuls... 1,920 ml @ 80 mls/hr TPN CONT IV Last administered on 12/27/18at 21:29; Start 12/27/18 at 22:00; Stop 12/28/18 at 21:59; Status DC Micafungin Sodium 100 mg/Dextrose 100 ml @ 100 mls/hr Q24H IV Last administe red on 01/01/19at 09:31; Start 12/28/18 at 10:00 Furosemide (Lasix) 40 mg 1X ONCE IVP Last administered on 12/28/18at 12:31; St art 12/28/18 at 11:30; Stop 12/28/18 at 11:31; Status DC Sodium Chloride 200 meq/Sodium Phosphate 15 mmol/ Potassium Chloride 60 meq/ Potassium Phosphate 13.6 mmol/Magnesium Sulfate 30 meq/ Calcium Gluconate 14 meq/ Multivitamins 10 ml/Chromium/ Copper/Manganese/ Seleni/Zn 1 ml/ Total Parenteral Nutrition/Amino Acids/Dextrose/ Fat Emuls... 1,920 ml @ 80 mls/hr TPN CONT IV Last administered on 12/28/18at 23:21; Start 12/28/18 at 22:00; Stop 12/29/18 at 21:59; Status DC Meropenem 500 mg/ Sodium Chloride 50 ml @ 100 mls/hr Q6HRS IV Last administered on 01/01/19at 06:34; Start 12/29/18 at 12:00 Sodium Chloride 200 meq/Sodium Phosphate 15 mmol/ Potassium Chloride 60 meq/ Potassium Phosphate 13.6 mmol/Magnesium Sulfate 30 meq/ Calcium Gluconate 14 meq/ Multivitamins 10 ml/Chromium/ Copper/Manganese/ Seleni/Zn 1 ml/ Total Parenteral Nutrition/Amino Acids/Dextrose/ Fat Emuls... 1,920 ml @ 80 mls/hr TPN CONT IV Last administered on 12/29/18at 21:08; Start 12/29/18 at 22:00; Stop 12/30/18 at 21:59; Status DC Alteplase, Recombinant (Cathflo For Central Catheter Clearance) 1 mg PRN 1X PRN INT CAT SEE COMMENTS Last administered on 12/30/18at 09:54; Start 12/30/18 at 07:15 Furosemide (Lasix) 40 mg 1X ONCE IVP Last administered on 12/30/18at 11:42; Start 12/30/18 at 11:15; Stop 12/30/18 at 11:16; Status DC Sodium Chloride 200 meq/Sodium Phosphate 15 mmol/ Potassium Chloride 60 meq/ Potassium Phosphate 13.6 mmol/Magnesium Sulfate 30 meq/ Calcium Gluconate 14 meq/ Multivitamins 10 ml/Chromium/ Copper/Manganese/ Seleni/Zn 1 ml/ Total Parenteral Nutrition/Amino Acids/Dextrose/ Fat Emuls... 1,920 ml @ 80 mls/hr TPN CONT IV Last administered on 12/30/18at 22:38; Start 12/30/18 at 22:00; Stop 12/31/18 at 21:59; Status DC Furosemide (Lasix) 40 mg 1X ONCE IVP Last administered on 12/31/18at 11:56; Start 12/31/18 at 11:00; Stop 12/31/18 at 11:01; Status DC Amlodipine Besylate (Norvasc) 5 mg DAILY PO Last administered on 12/31/18at 11:57; Start 12/31/18 at 12:00 Sodium Chloride 200 meq/Sodium Phosphate 15 mmol/ Potassium Chloride 50 meq/ Potassium Phosphate 13.6 mmol/Magnesium Sulfate 30 meq/ Calcium Gluconate 14 meq/ Multivitamins 10 ml/Chromium/ Copper/Manganese/ Seleni/Zn 1 ml/ Total Parenteral Nutrition/Amino Acids/Dextrose/ Fat Emuls... 1,920 ml @ 80 mls/hr TPN CONT IV Last administered on 12/31/18at 21:09; Start 12/31/18 at 22:00; Stop 01/01/19 at 21:59 Active Scripts Active Nystatin 15 Gm Cream..g. 1 Sang TP BID [Pantoprazole] 40 MG Tablet.dr 40 Mg PO DAILYAC 30 Days Zinc Oxide 56.7 Gm Oint...g. 1 Sang TP BID Ambien (Zolpidem Tartrate) 5 Mg Tablet 5 Mg PO PRN QHS PRN 30 Days [Tpn Per Pharmacy] 1 EACH Each 1 Each MC PRN DAILY PRN TPN at 85cc/hour Sertraline Hcl 50 Mg Tablet 50 Mg PO DAILY 30 Days Lidocaine 35.44 Gm Oint...g. 1 Sang TP BID Reported Zofran Odt (Ondansetron) 4 Mg Tab.rapdis 1 Tab SL PRN Q8HRS PRN Zinc Oxide 56.7 Gm Oint...g. 56.7 Gm TP PRN BID Dilaudid (Hydromorphone Hcl) 2 Mg Tablet 1 Tab PO PRN QID PRN Lorazepam 0.5 Mg Tablet 0.5 Mg PO Q6HRS PRN Vitals/I & O Vital Sign - Last 24 Hours 12/31/18 12/31/18 12/31/18 12/31/18 11:35 11:57 14:22 15:00 Temp 98.7 98.7 Pulse 110 116 Resp 19 B/P (MAP) 149/78 (101) 166/96 Pulse Ox 100 100 100 O2 Delivery Room Air Room Air Room Air 12/31/18 12/31/18 12/31/18 12/31/18 15:00 19:47 20:05 23:45 Temp 98.3 98.8 98.1 98.3 98.8 98.1 Pulse 117 113 106 Resp 20 16 16 B/P (MAP) 146/78 (100) 156/84 (108) 153/78 (103) Pulse Ox 100 97 100 O2 Delivery Room Air Room Air Room Air Room Air 01/01/19 01/01/19 03:22 07:50 Temp 98.4 98.4 Pulse 109 103 Resp 16 17 B/P (MAP) 128/91 (103) Pulse Ox 93 O2 Delivery Room Air Room Air Intake and Output 12/31/18 12/31/18 01/01/19 15:00 23:00 07:00 Intake Total 180 ml 400 ml Output Total 600 ml 200 ml 150 ml Balance -420 ml -200 ml 250 ml Nutrition Consultation Dietary Evaluation: Recommendations by RD: PPN/TPN Comments: continue Home TPN and regular diet REC obtain Trig Expected Outcomes/Goals: to meet > 75% est nutr needs via TPN- met, goal ongoing Malnutrition Findings: Body Fat Depletion (Non Severe: Mild Depletion Weight Status: Underweight BENITA LUTZ MD Jan 01, 2019 10:44
[2019-01-01] MEDS ORDERED: FUROSEMIDE 40 MG/4 ML VIAL. IVP ONE (10:45)
[2019-01-01] MEDS: amLODIPine BESYLATE 5 MG TABLET PO SCH (11:04)
[2019-01-01] MEDS: LACTOBACILLUS RHAMNOSUS GG 1 CAPSULE. PO SCH ×2 (11:04→19:51)
[2019-01-01] MEDS: PANTOPRAZOLE 40 MG TABLET.DR. PO SCH (11:04)
[2019-01-01] MEDS: ZINC OXIDE 20% TOPICAL OINTMENT 28GM TUBE. TP SCH ×2 (11:06→19:56)
[2019-01-01] MEDS: LIDOCAINE/PRILOCAINE TOPICAL CREAM 5GM TUBE. TP SCH ×2 (11:06→19:56)
[2019-01-01 11:20] VITALS: BP 132/91
[2019-01-01] MEDS: TPN PER PHARMACY MC PRN (11:59)
--- NOTE | 2019-01-01 11:59 | NUR ---
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 B:Pertinent PMH: residential tpn/fistula LABS: Sodium: 135 Potassium: 4.7 Chloride: 104 Calcium: 8.6 Corrected Calcium: 10.76 Magnesium: 1.9 CO2: 26 SCr: 0.6 Glucose: 113 Albumin: 1.3 AST: 13 ALT: 10 TPN FORMULA: TPN TYPE: Central Continuous AMINO ACIDS: 90 gm DEXTROSE: 285 gm LIPIDS: 30 gm SODIUM CHLORIDE: 200 mEq SODIUM ACETATE: - mEq SODIUM PHOSPHATE: 15 mmol POTASSIUM CHLORIDE: 50 mEq POTASSIUM ACETATE: - mEq POTASSIUM PHOSPHATE: 13.6 mmol MAGNESIUM: 30 mEq CALCIUM: 14 mEq INSULIN: - units MULTIPLE VITAMIN: 10 ml TRACE ELEMENTS: 1 ml(s) TPN PLAN: 01/01 CONT SAME R: Continue TPN Will monitor electrolytes, glucose, and tolerance to TPN. [facility]BL[facility] [place], 01/01/19 0009
--- NOTE | 2019-01-01 13:43 | PDOC ---
Infectious Disease Note Subjective Subjective Doing alright today Less swelling in her legs Denies pain/F/C/N/V Vital Sign Vital Signs Vital Signs Date Time Temp Pulse Resp B/P (MAP) Pulse Ox O2 Delivery O2 Flow Rate FiO2 01/01/19 11:36 19 93 Room Air 01/01/19 11:20 98.8 110 132/91 (105) 98.8 Physical Exam PHYSICAL EXAM GENERAL: Sitting on the side of the bed, alert, NAD LUNGS: Clear bilaterally. HEART: S1, S2. ABDOMEN: Soft, nondistended. EC fistula - mild excoriation EXTREMITIES: BLE 2+ edema DERMATOLOGIC: Warm to touch NEUROLOGIC: Alert and oriented x 3, grossly nonfocal. Power PICC without signs of complication. Labs Lab Laboratory Tests Test 01/01/19 06:40 Sodium Level 135 mmol/L (136-145) Potassium Level 4.7 mmol/L (3.5-5.1) Chloride Level 104 mmol/L (98-107) Carbon Dioxide Level 26 mmol/L (21-32) Anion Gap 5 (6-14) Blood Urea Nitrogen 16 mg/dL (7-20) Creatinine 0.6 mg/dL (0.6-1.0) Estimated GFR (Cockcroft-Gault) 122.2 Glucose Level 113 mg/dL (70-99) Calcium Level 8.6 mg/dL (8.5-10.1) Magnesium Level 1.9 mg/dL (1.8-2.4) Micro Microbiology 12/21/18 Blood Culture - Preliminary, Resulted NO GROWTH AFTER 2 DAYS Abdominal abscess GRAM STAIN RES 2 Final Comment Few gram negative rods. Objective Assessment Fever at home, afebrile here. Leukopenia - off Zosyn 12/29 - improved Abdominal pain - better. Abdominal wall abscesses, spontaneously drained. Ecoli, Citrobacter, Raoultella, Enterococcus, Klebsiella and yeast History of enterocutaneous and vesicoenteric fistula, chronic with multiple surgeries, on chronic TPN. History of recurrent urinary tract infections, had 9 infections, Nausea and vomiting - better. Diarrhea. c. diff neg, 12/22 & 12/26 Plan Plan of Care continue Meropenem 12/29 and micafungin off Zyvox (12/22) -12/25 off Zosyn (12/22-12/29) Probiotics Local wound care. Leg elevation Pt seen and examined Case discussed agree with above A/P SUBLETTE,MARICARMEN Jimenez APRN Jan 01, 2019 13:43 AUGIE TATUM MD Jan 01, 2019 15:27
[2019-01-01 15:11] VITALS: BP 151/69
--- NOTE | 2019-01-01 17:47 | NUR ---
The patient was asleep this morning until 10:00. She claims to be feeling much better today. No new concerns during the shift.
[2019-01-01 19:45] VITALS: BP 147/94
[2019-01-01] MEDS ORDERED: [UNRECOGNIZED DRUG - OTHER] IV SCH ×11 (22:00)
[2019-01-01] MEDS ORDERED: DEXTROSE 70% IV SCH ×11 (22:00)
[2019-01-01] MEDS ORDERED: TOTAL PARENTERAL NUTRITION IV SCH ×11 (22:00)
[2019-01-01] MEDS ORDERED: AMINO ACID IV SCH ×11 (22:00)
[2019-01-01] MEDS: ZOLPIDEM 5 MG TABLET. PO PRN (22:45)
[2019-01-01 23:41] VITALS: BP 184/95
[2019-01-02] VITALS (10 sets, daily range): BP systolic 137–173; BP diastolic 84–129
[2019-01-02] MEDS: HYDROmorphone 2 MG/ML VIAL IVP PRN ×6 (00:32→22:32)
[2019-01-02] MEDS: MEROPENEM 500 MG in IV NORMAL SALINE 50ML 50 ML IV SCH (06:16)
[2019-01-02 06:33] LABS: BASO # 0.1 x10^3/uL (0.0-0.2); BASO % 1 % (0-3); EOS # 0.2 x10^3/uL (0.0-0.7); EOS % 3 % (0-3); LYMPH # 1.2 x10^3/uL (1.0-4.8); LYMPH % 16 % (24-48); MEAN CORPUSCULAR HEMOGLOBIN 30 pg (25-35); MEAN CORPUSCULAR HGB CONC 33 g/dL (31-37); MEAN CORPUSCULAR VOLUME 91 fL (79-100); MONO # 0.8 x10^3/uL (0.0-1.1); MONO % 10 % (0-9); NEUT # 5.3 x10^3/uL (1.8-7.7); NEUT % 70 % (31-73); PLATELET COUNT 342 x10^3/uL (140-400); RED CELL DISTRIBUTION WIDTH 16.9 % (11.5-14.5); WHITE BLOOD COUNT 7.6 x10^3/uL (4.0-11.0)
[2019-01-02 06:44] LABS: ALBUMIN 1.5 g/dL (3.4-5.0); ALBUMIN/GLOBULIN RATIO 0.3 (1.0-1.7); CALCIUM 8.6 mg/dL (8.5-10.1); CREATININE 0.6 mg/dL (0.6-1.0); GFR 122.2; MAGNESIUM 1.9 mg/dL (1.8-2.4); POTASSIUM 4.3 mmol/L (3.5-5.1); TOTAL BILIRUBIN 0.3 mg/dL (0.2-1.0)
[2019-01-02 06:48] LABS: HEMOGLOBIN 6.7 g/dL (12.0-15.5)
[2019-01-02 06:49] LABS: HEMATOCRIT 20.1 % (36.0-47.0)
[2019-01-02] MEDS: PANTOPRAZOLE 40 MG TABLET.DR. PO SCH (08:46)
[2019-01-02] MEDS: LACTOBACILLUS RHAMNOSUS GG 1 CAPSULE. PO SCH ×2 (08:46→22:31)
[2019-01-02] MEDS: amLODIPine BESYLATE 5 MG TABLET PO SCH (08:53)
[2019-01-02] MEDS: LIDOCAINE/PRILOCAINE TOPICAL CREAM 5GM TUBE. TP SCH ×2 (08:53→22:31)
[2019-01-02] MEDS: ZINC OXIDE 20% TOPICAL OINTMENT 28GM TUBE. TP SCH ×2 (08:53→22:31)
[2019-01-02] MEDS: MICAFUNGIN 100 MG in IV DEXTROSE 5% 100ML 100 ML IV SCH (09:28)
--- NOTE | 2019-01-02 09:58 | PDOC ---
Infectious Disease Note Subjective: Subjective Doing alright today no abdominal pain Less swelling in her legs Denies pain/F/C/N/V Awaiting PRBC per RN ROS: ROS Negative except for above. Vital Signs: Vital Signs Vital Signs Date Time Temp Pulse Resp B/P (MAP) Pulse Ox O2 Delivery O2 Flow Rate FiO2 01/02/19 08:53 101 156/84 01/02/19 08:49 19 100 Room Air 01/02/19 07:00 98.6 98.6 Physical Exam: PHYSICAL EXAM GENERAL: Sitting on the side of the bed, alert, NAD LUNGS: Clear bilaterally. HEART: S1, S2. ABDOMEN: Soft, nondistended. EC fistula - mild excoriation EXTREMITIES: BLE 2+ edema DERMATOLOGIC: Warm to touch NEUROLOGIC: Alert and oriented x 3, grossly nonfocal. Power PICC without signs of complication. Medications: Inpatient Meds: Current Medications Medications (Trade) Dose Ordered Sig/Alex Start Time Stop Time Status Last Admin Dose Admin Acetaminophen (Tylenol) 650 mg PRN Q6HRS PRN 12/22/18 12:15 Alteplase, Recombinant (Cathflo For Central Catheter Clearance) 1 mg PRN 1X PRN 12/30/18 07:15 12/30/18 09:54 1 MG Amlodipine Besylate (Norvasc) 5 mg DAILY 12/31/18 12:00 01/02/19 08:53 5 MG Diphenhydramine HCl (Benadryl) 25 mg PRN Q6HRS PRN 12/24/18 17:45 12/24/18 17:53 25 MG Fentanyl Citrate (Fentanyl 2ml Vial) 50 mcg PRN Q1HR PRN 12/21/18 23:30 12/22/18 23:29 DC Furosemide (Lasix) 40 mg 1X ONCE 01/01/19 10:45 01/01/19 10:46 DC 01/01/19 11:20 40 MG Hydromorphone HCl (Dilaudid) 2 mg 1X ONCE 12/26/18 15:00 12/26/18 15:01 DC 12/26/18 14:52 2 MG Info (Tpn Per Pharmacy) 1 each PRN DAILY PRN 12/22/18 14:30 Cancel Lactobacillus Rhamnosus (Culturelle) 1 cap BID 12/22/18 21:00 01/02/19 08:46 1 CAP Lidocaine/ Epinephrine (LIDOCAINE 1%-EPI 1:100,000 Multi-Dose) 20 ml 1X ONCE 12/24/18 12:15 12/24/18 12:16 DC Lidocaine/ Prilocaine (Emla) 1 nallely BID 12/22/18 21:00 01/02/19 08:53 1 NALLELY Linezolid/Dextrose 300 ml @ 300 mls/hr Q12HR 12/22/18 09:00 12/25/18 13:54 DC 12/25/18 08:31 300 MLS/HR Lorazepam (Ativan) 0.5 mg PRN Q6HRS PRN 12/22/18 12:15 01/01/19 22:45 0.5 MG Magnesium Sulfate 50 ml @ 25 mls/hr 1X ONCE 12/27/18 12:00 12/27/18 13:59 DC 12/27/18 13:12 25 MLS/HR Magnesium Sulfate 3 gm/Dextrose 106 ml @ 35.333 mls/ hr 1X ONCE 12/21/18 23:45 12/22/18 02:44 DC 12/22/18 00:05 35.333 MLS/HR Meropenem 500 mg/ Sodium Chloride 50 ml @ 100 mls/hr Q6HRS 12/29/18 12:00 01/02/19 06:16 100 MLS/HR Micafungin Sodium 100 mg/Dextrose 100 ml @ 100 mls/hr Q24H 12/28/18 10:00 01/02/19 09:28 100 MLS/HR Ondansetron HCl (Zofran) 8 mg PRN Q6HRS PRN 12/22/18 17:30 12/23/18 18:08 8 MG Pantoprazole Sodium (Protonix) 40 mg DAILYAC 12/23/18 07:30 01/02/19 08:46 40 MG Piperacillin Sod/ Tazobactam Sod 3.375 gm/Sodium Chloride 50 ml @ 100 mls/hr Q6HRS 12/22/18 12:00 12/29/18 10:44 DC 12/29/18 05:28 100 MLS/HR Piperacillin Sod/ Tazobactam Sod 4.5 gm/Sodium Chloride 100 ml @ 200 mls/hr 1X ONCE 12/21/18 22:00 12/21/18 22:29 DC 12/21/18 22:23 200 MLS/HR Potassium Chloride/Dextrose/ Sod Cl 1,000 ml @ 80 mls/hr [id number] 12/22/18 13:00 12/22/18 22:00 DC 12/22/18 12:56 80 MLS/HR Potassium Chloride/Water 50 ml @ 50 mls/hr Q1H 12/22/18 17:45 12/22/18 19:44 DC 12/22/18 20:14 50 MLS/HR Potassium Chloride (Klor-Con) 40 meq 1X ONCE 12/21/18 23:00 12/21/18 23:01 DC Sodium Chloride 200 meq/Potassium Chloride 100 meq/ Potassium Phosphate 13.6 mmol/Magnesium Sulfate 35 meq/ Calcium Gluconate 14 meq/ Multivitamins 10 ml/Chromium/ Copper/Manganese/ Seleni/Zn 1 ml/ Sodium Phosphate 9.99 mmol/Total Parenteral Nutrition/Amino Acids/Dextrose/ Fat Emuls... 1,920 ml @ 80 mls/hr TPN CONT 12/23/18 22:00 12/24/18 21:59 DC 12/23/18 20:58 80 MLS/HR Sodium Chloride 200 meq/Sodium Phosphate 15 mmol/ Potassium Chloride 40 meq/ Potassium Phosphate 13.6 mmol/Magnesium Sulfate 25 meq/ Calcium Gluconate 14 meq/ Multivitamins 10 ml/Chromium/ Copper/Manganese/ Seleni/Zn 1 ml/ Total Parenteral Nutrition/Amino Acids/Dextrose/ Fat Emuls... 1,920 ml @ 80 mls/hr TPN CONT 12/26/18 22:00 12/27/18 21:59 DC 12/26/18 21:44 80 MLS/HR Sodium Chloride 200 meq/Sodium Phosphate 15 mmol/ Potassium Chloride 50 meq/ Potassium Phosphate 13.6 mmol/Magnesium Sulfate 25 meq/ Calcium Gluconate 14 meq/ Multivitamins 10 ml/Chromium/ Copper/Manganese/ Seleni/Zn 1 ml/ Total Parenteral Nutrition/Amino Acids/Dextrose/ Fat Emuls... 1,920 ml @ 80 mls/hr TPN CONT 12/24/18 22:00 12/25/18 21:59 DC 12/24/18 20:54 80 MLS/HR Sodium Chloride 200 meq/Sodium Phosphate 15 mmol/ Potassium Chloride 50 meq/ Potassium Phosphate 13.6 mmol/Magnesium Sulfate 30 meq/ Calcium Gluconate 14 meq/ Multivitamins 10 ml/Chromium/ Copper/Manganese/ Seleni/Zn 1 ml/ Total Parenteral Nutrition/Amino Acids/Dextrose/ Fat Emuls... 1,920 ml @ 80 mls/hr TPN CONT 01/01/19 22:00 01/02/19 21:59 01/01/19 22:41 80 MLS/HR Sodium Chloride 200 meq/Sodium Phosphate 15 mmol/ Potassium Chloride 60 meq/ Potassium Phosphate 13.6 mmol/Magnesium Sulfate 30 meq/ Calcium Gluconate 14 meq/ Multivitamins 10 ml/Chromium/ Copper/Manganese/ Seleni/Zn 1 ml/ Total Parenteral Nutrition/Amino Acids/Dextrose/ Fat Emuls... 1,920 ml @ 80 mls/hr TPN CONT 12/30/18 22:00 12/31/18 21:59 DC 12/30/18 22:38 80 MLS/HR Sodium Chloride 220 meq/Potassium Chloride 100 meq/ Potassium Phosphate 6.81 mmol/Magnesium Sulfate 40 meq/ Calcium Gluconate 14 meq/ Multivitamins 10 ml/Chromium/ Copper/Manganese/ Seleni/Zn 1 ml/ Sodium Phosphate 9.99 mmol/Total Parenteral Nutrition/Amino Acids/Dextrose/ Fat Emuls... 1,920 ml @ 80 mls/hr TPN CONT 12/22/18 22:00 12/23/18 21:59 DC 12/22/18 21:43 80 MLS/HR Sodium Phosphate 15 mmol/Dextrose 255 ml @ 63.75 mls/ hr 1X ONCE 12/26/18 14:00 12/26/18 17:59 DC 12/26/18 14:53 63.75 MLS/HR Sodium Phosphate 20 mmol/Dextrose 256.6667 ml @ 64.167 m... 1X ONCE 12/24/18 13:00 12/24/18 16:59 DC 12/24/18 13:40 64.167 MLS/HR Vancomycin HCl (Vanco Per Pharmacy) 1 each 1X ONCE 12/21/18 21:45 12/21/18 21:46 UNV Zinc Oxide (Zinc Oxide 20% Topical) 1 nallely BID 12/22/18 21:00 01/02/19 08:53 1 NALLELY Zolpidem Tartrate (Ambien) 5 mg PRN QHS PRN 12/22/18 12:15 7/21/19 22:45 5 MG Labs: Lab Laboratory Tests Test 01/02/19 06:20 White Blood Count 7.6 x10^3/uL (4.0-11.0) Red Blood Count 2.20 x10^6/uL (3.50-5.40) Hemoglobin 6.7 g/dL (12.0-15.5) Hematocrit 20.1 % (36.0-47.0) Mean Corpuscular Volume 91 fL (79-100) Mean Corpuscular Hemoglobin 30 pg (25-35) Mean Corpuscular Hemoglobin Concent 33 g/dL (31-37) Red Cell Distribution Width 16.9 % (11.5-14.5) Platelet Count 342 x10^3/uL (140-400) Neutrophils (%) (Auto) 70 % (31-73) Lymphocytes (%) (Auto) 16 % (24-48) Monocytes (%) (Auto) 10 % (0-9) Eosinophils (%) (Auto) 3 % (0-3) Basophils (%) (Auto) 1 % (0-3) Neutrophils # (Auto) 5.3 x10^3/uL (1.8-7.7) Lymphocytes # (Auto) 1.2 x10^3/uL (1.0-4.8) Monocytes # (Auto) 0.8 x10^3/uL (0.0-1.1) Eosinophils # (Auto) 0.2 x10^3/uL (0.0-0.7) Basophils # (Auto) 0.1 x10^3/uL (0.0-0.2) Sodium Level 136 mmol/L (136-145) Potassium Level 4.3 mmol/L (3.5-5.1) Chloride Level 103 mmol/L (98-107) Carbon Dioxide Level 26 mmol/L (21-32) Anion Gap 7 (6-14) Blood Urea Nitrogen 16 mg/dL (7-20) Creatinine 0.6 mg/dL (0.6-1.0) Estimated GFR (Cockcroft-Gault) 122.2 BUN/Creatinine Ratio 27 (6-20) Glucose Level 97 mg/dL (70-99) Calcium Level 8.6 mg/dL (8.5-10.1) Magnesium Level 1.9 mg/dL (1.8-2.4) Total Bilirubin 0.3 mg/dL (0.2-1.0) Aspartate Amino Transf (AST/SGOT) 23 U/L (15-37) Alanine Aminotransferase (ALT/SGPT) 18 U/L (14-59) Alkaline Phosphatase 158 U/L (46-116) Total Protein 7.0 g/dL (6.4-8.2) Albumin 1.5 g/dL (3.4-5.0) Albumin/Globulin Ratio 0.3 (1.0-1.7) Micro abdo c/s not done per micro Objective: Assessment: 1. Fever at home, afebrile here. 2. Abdominal pain. 3. Abdominal wall abscesses.Polymicrobials on cultures, spontaneous drainage cults 12/25 Citrobacter farmeri, Klebsiella aerogenes Raoultella ornithinolytica Enterococcus faecalis Escherichia coli 4. History of enterocutaneous and vesicoenteric fistula, chronic with multiple surgeries, on chronic TPN. 5. History of recurrent urinary tract infections, had 9 infections, as mentioned in the history of present illness. 6. Nausea and vomiting. 7. Diarrhea. Plan: Plan of Care DC meropenem and micafungin abdo abscess area resolved since spontaneous drainage off Zyvox (12/22) -12/25 off Zosyn (12/22-12/29) Probiotics Local wound care. Leg elevation D/W AUGIE JAIMES MD Jan 02, 2019 09:58
--- NOTE | 2019-01-02 10:23 | PDOC ---
PROGRESS NOTES Subjective Subjective antibiotics finished. hgb 6.7 and will transfuse 2 units prbc. feels well. alert lab reviewed. Objective Objective Vital Signs Date Time Temp Pulse Resp B/P (MAP) Pulse Ox O2 Delivery O2 Flow Rate FiO2 01/02/19 08:53 101 156/84 01/02/19 08:49 19 100 Room Air 01/02/19 07:00 98.6 98.6 Intake and Output 01/02/19 07:00 Intake Total 740 ml Output Total 1550 ml Balance -810 ml Intake Oral 740 ml Output Urine Total 1550 ml # Voids 2 Physical Exam Abdomen: Soft, Other (EC fistula) Heart: Regular rate, Normal S1, Normal S2 Extremities: Other (bipedal edema) General: Alert HEENT: Atraumatic Lungs: Clear to auscultation Neuro: Normal speech Psych/Mental Status: Mental status NL Skin: No rashes Assessment Assessment ProblemsFever resolved She does not have leukocytosis or lactic acidosis 2. Severe hypokalemia. resolved 3. Severe hypomagnesemia.resolved 4. Enterocutaneous fistula. 5. peripheral edema legs 6. Severe protein-calorie malnutrition. 7. Enterovesical fistula. abdominal wall abscess. spontaneously draining. multiple organisms in cul ture . treated anemia hypertension. Medical Problems: Medical Problems: (1) Fever Status: Acute (2) Severe protein-calorie malnutrition Status: Acute Plan Plan of Care transfuse 2 units prbc continue TPN continue prn analgesics iv lasix today lab tomorrow anticipate dismissal or wed Comment Review of Relevant I have reviewed the following items lucila (where applicable) has been applied. Labs Laboratory Tests Test 01/01/19 06:40 01/02/19 06:20 Sodium Level 135 mmol/L (136-145) 136 mmol/L (136-145) Potassium Level 4.7 mmol/L (3.5-5.1) 4.3 mmol/L (3.5-5.1) Chloride Level 104 mmol/L (98-107) 103 mmol/L (98-107) Carbon Dioxide Level 26 mmol/L (21-32) 26 mmol/L (21-32) Anion Gap 5 (6-14) 7 (6-14) Blood Urea Nitrogen 16 mg/dL (7-20) 16 mg/dL (7-20) Creatinine 0.6 mg/dL (0.6-1.0) 0.6 mg/dL (0.6-1.0) Estimated GFR (Cockcroft-Gault) 122.2 122.2 Glucose Level 113 mg/dL (70-99) 97 mg/dL (70-99) Calcium Level 8.6 mg/dL (8.5-10.1) 8.6 mg/dL (8.5-10.1) Magnesium Level 1.9 mg/dL (1.8-2.4) 1.9 mg/dL (1.8-2.4) White Blood Count 7.6 x10^3/uL (4.0-11.0) Red Blood Count 2.20 x10^6/uL (3.50-5.40) Hemoglobin 6.7 g/dL (12.0-15.5) Hematocrit 20.1 % (36.0-47.0) Mean Corpuscular Volume 91 fL (79-100) Mean Corpuscular Hemoglobin 30 pg (25-35) Mean Corpuscular Hemoglobin Concent 33 g/dL (31-37) Red Cell Distribution Width 16.9 % (11.5-14.5) Platelet Count 342 x10^3/uL (140-400) Neutrophils (%) (Auto) 70 % (31-73) Lymphocytes (%) (Auto) 16 % (24-48) Monocytes (%) (Auto) 10 % (0-9) Eosinophils (%) (Auto) 3 % (0-3) Basophils (%) (Auto) 1 % (0-3) Neutrophils # (Auto) 5.3 x10^3/uL (1.8-7.7) Lymphocytes # (Auto) 1.2 x10^3/uL (1.0-4.8) Monocytes # (Auto) 0.8 x10^3/uL (0.0-1.1) Eosinophils # (Auto) 0.2 x10^3/uL (0.0-0.7) Basophils # (Auto) 0.1 x10^3/uL (0.0-0.2) BUN/Creatinine Ratio 27 (6-20) Total Bilirubin 0.3 mg/dL (0.2-1.0) Aspartate Amino Transf (AST/SGOT) 23 U/L (15-37) Alanine Aminotransferase (ALT/SGPT) 18 U/L (14-59) Alkaline Phosphatase 158 U/L (46-116) Total Protein 7.0 g/dL (6.4-8.2) Albumin 1.5 g/dL (3.4-5.0) Albumin/Globulin Ratio 0.3 (1.0-1.7) Laboratory Tests Test 01/02/19 06:20 White Blood Count 7.6 x10^3/uL (4.0-11.0) Red Blood Count 2.20 x10^6/uL (3.50-5.40) Hemoglobin 6.7 g/dL (12.0-15.5) Hematocrit 20.1 % (36.0-47.0) Mean Corpuscular Volume 91 fL (79-100) Mean Corpuscular Hemoglobin 30 pg (25-35) Mean Corpuscular Hemoglobin Concent 33 g/dL (31-37) Red Cell Distribution Width 16.9 % (11.5-14.5) Platelet Count 342 x10^3/uL (140-400) Neutrophils (%) (Auto) 70 % (31-73) Lymphocytes (%) (Auto) 16 % (24-48) Monocytes (%) (Auto) 10 % (0-9) Eosinophils (%) (Auto) 3 % (0-3) Basophils (%) (Auto) 1 % (0-3) Neutrophils # (Auto) 5.3 x10^3/uL (1.8-7.7) Lymphocytes # (Auto) 1.2 x10^3/uL (1.0-4.8) Monocytes # (Auto) 0.8 x10^3/uL (0.0-1.1) Eosinophils # (Auto) 0.2 x10^3/uL (0.0-0.7) Basophils # (Auto) 0.1 x10^3/uL (0.0-0.2) Sodium Level 136 mmol/L (136-145) Potassium Level 4.3 mmol/L (3.5-5.1) Chloride Level 103 mmol/L (98-107) Carbon Dioxide Level 26 mmol/L (21-32) Anion Gap 7 (6-14) Blood Urea Nitrogen 16 mg/dL (7-20) Creatinine 0.6 mg/dL (0.6-1.0) Estimated GFR (Cockcroft-Gault) 122.2 BUN/Creatinine Ratio 27 (6-20) Glucose Level 97 mg/dL (70-99) Calcium Level 8.6 mg/dL (8.5-10.1) Magnesium Level 1.9 mg/dL (1.8-2.4) Total Bilirubin 0.3 mg/dL (0.2-1.0) Aspartate Amino Transf (AST/SGOT) 23 U/L (15-37) Alanine Aminotransferase (ALT/SGPT) 18 U/L (14-59) Alkaline Phosphatase 158 U/L (46-116) Total Protein 7.0 g/dL (6.4-8.2) Albumin 1.5 g/dL (3.4-5.0) Albumin/Globulin Ratio 0.3 (1.0-1.7) Microbiology 12/21/18 Blood Culture - Final, Complete NO GROWTH AFTER 5 DAYS 12/25/18 Anaerobic/Aerobic Culture - Final, Complete 12/25/18 Anaerobic Culture Result 1 (ROYA) - Final, Complete 12/25/18 Aerobic Culture - Final, Complete 12/25/18 Aerobic Culture Result 1 (ROYA) - Final, Complete 12/25/18 Aerobic Culture Result 2 (ROYA) - Final, Complete 12/25/18 Aerobic Culture Result 3 (ROYA) - Final, Complete 12/25/18 Antimicrobic Susceptibility - Final, Complete 12/25/18 Gram Stain - Final, Complete 12/25/18 Gram Stain Result 1 (ROYA) - Final, Complete 12/25/18 Gram Stain Result 2 (ROYA) - Final, Complete 12/25/18 Gram Stain Result 3 (ROYA) - Final, Complete 12/26/18 Fecal Leukocyte Stain - Final, Complete 12/23/18 Anaerobic/Aerobic Culture - Final, Complete 12/23/18 Anaerobic Culture Result 1 (ROYA) - Final, Complete 12/23/18 Aerobic Culture - Final, Complete 12/23/18 Aerobic Culture Result 1 (ROYA) - Final, Complete 12/23/18 Aerobic Culture Result 2 (ROYA) - Final, Complete 12/23/18 Antimicrobic Susceptibility - Final, Complete 12/23/18 Gram Stain - Final, Complete 12/23/18 Gram Stain Result 1 (ROYA) - Final, Complete 12/23/18 Gram Stain Result 2 (ROYA) - Final, Complete Medications Current Medications Piperacillin Sod/ Tazobactam Sod 4.5 gm/Sodium Chloride 100 ml @ 200 mls/hr 1X ONCE IV Last administered on 12/21/18at 22:23; Start 12/21/18 at 22:00; Stop 12/21/18 at 22:29; Status DC Vancomycin HCl (Vanco Per Pharmacy) 1 each 1X ONCE MC ; Start 12/21/18 at 21:45; Stop 12/21/18 at 21:46; Status UNV Sodium Chloride 1,000 ml @ 1,320 mls/hr Q46M IV Last administered on 12/21/18at 22:24; Start 12/21/18 at 21:41; Stop 12/21/18 at 22:40; Status DC Hydromorphone HCl (Dilaudid) 1 mg PRN Q2HR PRN IVP PAIN Last administered on 12/22/18at 10:03; Start 12/21/18 at 22:30; Stop 12/22/18 at 12:24; Status DC Potassium Chloride/Water 50 ml @ 50 mls/hr Q1H IV Last administered on 12/22/18at 01:09; Start 12/21/18 at 23:00; Stop 12/22/18 at 00:59; Status DC Potassium Chloride (Klor-Con) 40 meq 1X ONCE PO ; Start 12/21/18 at 23:00; Stop 12/21/18 at 23:01; Status DC Linezolid/Dextrose 300 ml @ 300 mls/hr Q12HR IV Last administered on 12/25/18at 08:31; Start 12/22/18 at 09:00; Stop 12/25/18 at 13:54; Status DC Ondansetron HCl (Zofran) 4 mg PRN Q8HRS PRN IV NAUSEA/VOMITING Last administered on 12/22/18at 11:38; Start 12/21/18 at 23:30; Stop 12/22/18 at 23:29; Status DC Fentanyl Citrate (Fentanyl 2ml Vial) 50 mcg PRN Q1HR PRN IV PAIN; Start 12/21/18 at 23:30; Stop 12/22/18 at 23:29; Status DC Sodium Chloride 1,000 ml @ 100 mls/hr Q10H IV Last administered on 12/22/18at 11:37; Start 12/21/18 at 23:30; Stop 12/22/18 at 12:24; Status DC Magnesium Sulfate 3 gm/Dextrose 106 ml @ 35.333 mls/ hr 1X ONCE IV Last administered on 12/22/18 00:05; Start 12/21/18 at 23:45; Stop 12/22/18 at 02:44; Status DC Piperacillin Sod/ Tazobactam Sod 3.375 gm/Sodium Chloride 50 ml @ 100 mls/hr Q 6HRS IV Last administered on 12/29/18at 05:28; Start 12/22/18 at 12:00; Stop 12/29/18 at 10:44; Status DC Hydromorphone HCl (Dilaudid) 2 mg PRN Q4HRS PRN IVP SEVERE PAIN 7-10 Last administered on 12/26/18at 03:44; Start 12/22/18 at 12:15; Stop 12/26/18 at 04:08; Status DC Hydromorphone HCl (Dilaudid) 4 mg PRN Q4HRS PRN IV SEVERE PAIN 7-10 Last administered on 12/25/18at 09:50; Start 12/22/18 at 12:15; Stop 12/25/18 at 12:09; Status DC Acetaminophen (Tylenol) 650 mg PRN Q6HRS PRN PO MILD PAIN / TEMP; Start 12/22/18 at 12:15 Ondansetron HCl (Zofran) 4 mg PRN Q6HRS PRN IV NAUSEA/VOMITING, 1st choice; Start 12/22/18 at 12:15 Lidocaine/ Prilocaine (Emla) 1 sang BID TP Last administered on 01/02/19at 08:53; Start 12/22/18 at 21:00 Zinc Oxide (Zinc Oxide 20% Topical) 1 sang BID TP Last administered on 01/02/19 08:53; Start 12/22/18 at 21:00 Lorazepam (Ativan) 0.5 mg PRN Q6HRS PRN PO ANXIETY / AGITATION Last administered on 01/01/19at 22:45; Start 12/22/18 at 12:15 Zolpidem Tartrate (Ambien) 5 mg PRN QHS PRN PO INSOMNIA Last administered on 01/01/19at 22:45; Start 12/22/18 at 12:15 Magnesium Sulfate 50 ml @ 25 mls/hr 1X ONCE IV Last administered on 12/22/18at 13:40; Start 12/22/18 at 14:00; Stop 12/22/18 at 15:59; Status DC Potassium Chloride/Dextrose/ Sod Cl 1,000 ml @ 80 mls/hr [id number] IV Last administered on 12/22/18at 12:56; Start 12/22/18 at 13:00; Stop 12/22/18 at 22:00; Status DC Lactobacillus Rhamnosus (Culturelle) 1 cap BID PO Last administered on 01/02/19at 08:46; Start 12/22/18 at 21:00 Sodium Chloride 220 meq/Potassium Chloride 100 meq/ Potassium Phosphate 6.81 mmol/Magnesium Sulfate 40 meq/ Calcium Gluconate 14 meq/ Multivitamins 10 ml/Chromium/ Copper/Manganese/ Seleni/Zn 1 ml/ Sodium Phosphate 9.99 mmol/Total Parenteral Nutrition/Amino Acids/Dextrose/ Fat Emuls... 1,920 ml @ 80 mls/hr TPN CONT IV Last administered on 12/22/18at 21:43; Start 12/22/18 at 22:00; Stop 12/23/18 at 21:59; Status DC Info (Tpn Per Pharmacy) 1 each PRN DAILY PRN MC SEE COMMENTS Last administered on 01/01/19at 11:59; Start 12/22/18 at 14:15 Info (Tpn Per Pharmacy) 1 each PRN DAILY PRN MC SEE COMMENTS; Start 12/22/18 at 14:30; Status Cancel Pantoprazole Sodium (Protonix) 40 mg DAILYAC PO Last administered on 01/02/19at 08:46; Start 12/23/18 at 07:30 Ondansetron HCl (Zofran) 8 mg PRN Q6HRS PRN IV NAUSEA/VOMITING, 2nd choice Last administered on 12/23/18at 18:08; Start 12/22/18 at 17:30 Potassium Chloride/Water 50 ml @ 50 mls/hr Q1H IV Last administered on 12/22/18at 20:14; Start 12/22/18 at 17:45; Stop 12/22/18 at 19:44; Status DC Sodium Chloride 200 meq/Potassium Chloride 100 meq/ Potassium Phosphate 13.6 mmol/Magnesium Sulfate 35 meq/ Calcium Gluconate 14 meq/ Multivitamins 10 ml/Chromium/ Copper/Manganese/ Seleni/Zn 1 ml/ Sodium Phosphate 9.99 mmol/Total Parenteral Nutrition/Amino Acids/Dextrose/ Fat Emuls... 1,920 ml @ 80 mls/hr TPN CONT IV Last administered on 12/23/18at 20:58; Start 12/23/18 at 22:00; Stop 12/24/18 at 21:59; Status DC Hydromorphone HCl (Dilaudid) 2 mg 1X ONCE IV Last administered on 12/23/18at 14:26; Start 12/23/18 at 14:30; Stop 12/23/18 at 14:31; Status DC Amlodipine Besylate (Norvasc) 5 mg DAILY PO Last administered on 12/27/18at 08:32; Start 12/24/18 at 13:00; Stop 12/27/18 at 11:58; Status DC Furosemide (Lasix) 20 mg 1X ONCE IVP Last administered on 12/24/18at 11:59; Start 12/24/18 at 11:45; Stop 12/24/18 at 11:48; Status DC Sodium Phosphate 20 mmol/Dextrose 256.6667 ml @ 64.167 m... 1X ONCE IV Last administered on 12/24/18at 13:40; Start 12/24/18 at 13:00; Stop 12/24/18 at 16:59; Status DC Lidocaine/ Epinephrine (LIDOCAINE 1%-EPI 1:100,000 Multi-Dose) 20 ml 1X ONCE INJ ; Start 12/24/18 at 12:15; Stop 12/24/18 at 12:16; Status DC Sodium Chloride 200 meq/Sodium Phosphate 15 mmol/ Potassium Chloride 50 meq/ Potassium Phosphate 13.6 mmol/Magnesium Sulfate 25 meq/ Calcium Gluconate 14 meq/ Multivitamins 10 ml/Chromium/ Copper/Manganese/ Seleni/Zn 1 ml/ Total Parenteral Nutrition/Amino Acids/Dextrose/ Fat Emuls... 1,920 ml @ 80 mls/hr TPN CONT IV Last administered on 12/24/18at 20:54; Start 12/24/18 at 22:00; Stop 12/25/18 at 21:59; Status DC Diphenhydramine HCl (Benadryl) 25 mg PRN Q6HRS PRN PO ITCHING Last administered on 12/24/18 17:53; Start 12/24/18 at 17:45 Sodium Chloride 200 meq/Sodium Phosphate 15 mmol/ Potassium Chloride 40 meq/ Potassium Phosphate 13.6 mmol/Magnesium Sulfate 25 meq/ Calcium Gluconate 14 meq/ Multivitamins 10 ml/Chromium/ Copper/Manganese/ Seleni/Zn 1 ml/ Total Parenteral Nutrition/Amino Acids/Dextrose/ Fat Emuls... 1,920 ml @ 80 mls/hr TPN CONT IV Last administered on 12/25/18at 22:39; Start 12/25/18 at 22:00; Stop 12/26/18 at 21:59; Status DC Hydromorphone HCl (Dilaudid) 2 mg PRN Q4HRS PRN IVP MODERATE PAIN 4-6 Last administered on 12/29/18at 00:50; Start 12/26/18 at 04:15 Hydromorphone HCl (Dilaudid) 4 mg PRN Q4HRS PRN IVP SEVERE PAIN 7-10 Last administered on 01/02/19at 08:49; Start 12/26/18 at 04:15 Furosemide (Lasix) 40 mg 1X ONCE IVP Last administered on 12/26/18 12:16; Start 12/26/18 at 12:00; Stop 12/26/18 at 12:01; Status DC Sodium Chloride 200 meq/Sodium Phosphate 15 mmol/ Potassium Chloride 40 meq/ Potassium Phosphate 13.6 mmol/Magnesium Sulfate 25 meq/ Calcium Gluconate 14 meq/ Multivitamins 10 ml/Chromium/ Copper/Manganese/ Seleni/Zn 1 ml/ Total Parenteral Nutrition/Amino Acids/Dextrose/ Fat Emuls... 1,920 ml @ 80 mls/hr TPN CONT IV Last administered on 12/26/18at 21:44; Start 12/26/18 at 22:00; Stop 12/27/18 at 21:59; Status DC Sodium Phosphate 15 mmol/Dextrose 255 ml @ 63.75 mls/ hr 1X ONCE IV Last administered on 12/26/18at 14:53; Start 12/26/18 at 14:00; Stop 12/26/18 at 17:59; Status DC Hydromorphone HCl (Dilaudid) 2 mg 1X ONCE IV Last administered on 12/26/18at 14:52; Start 12/26/18 at 15:00; Stop 12/26/18 at 15:01; Status DC Magnesium Sulfate 50 ml @ 25 mls/hr 1X ONCE IV Last administered on 12/27/18at 13:12; Start 12/27/18 at 12:00; Stop 12/27/18 at 13:59; Status DC Sodium Chloride 200 meq/Sodium Phosphate 15 mmol/ Potassium Chloride 60 meq/ Potassium Phosphate 13.6 mmol/Magnesium Sulfate 30 meq/ Calcium Gluconate 14 meq/ Multivitamins 10 ml/Chromium/ Copper/Manganese/ Seleni/Zn 1 ml/ Total Parenteral Nutrition/Amino Acids/Dextrose/ Fat Emuls... 1,920 ml @ 80 mls/hr TPN CONT IV Last administered on 12/27/18at 21:29; Start 12/27/18 at 22:00; Stop 12/28/18 at 21:59; Status DC Micafungin Sodium 100 mg/Dextrose 100 ml @ 100 mls/hr Q24H IV Last administered on 01/02/19at 09:28; Start 12/28/18 at 10:00; Stop 01/02/19 at 10:17; Status DC Furosemide (Lasix) 40 mg 1X ONCE IVP Last administered on 12/28/18at 12:31; Start 12/28/18 at 11:30; Stop 12/28/18 at 11:31; Status DC Sodium Chloride 200 meq/Sodium Phosphate 15 mmol/ Potassium Chloride 60 meq/ Potassium Phosphate 13.6 mmol/Magnesium Sulfate 30 meq/ Calcium Gluconate 14 meq/ Multivitamins 10 ml/Chromium/ Copper/Manganese/ Seleni/Zn 1 ml/ Total Parenteral Nutrition/Amino Acids/Dextrose/ Fat Emuls... 1,920 ml @ 80 mls/hr TPN CONT IV Last administered on 12/28/18at 23:21; Start 12/28/18 at 22:00; Stop 12/29/18 at 21:59; Status DC Meropenem 500 mg/ Sodium Chloride 50 ml @ 100 mls/hr Q6HRS IV Last administered on 01/02/19at 06:16; Start 12/29/18 at 12:00; Stop 01/02/19 at 10:17; Status DC Sodium Chloride 200 meq/Sodium Phosphate 15 mmol/ Potassium Chloride 60 meq/ Potassium Phosphate 13.6 mmol/Magnesium Sulfate 30 meq/ Calcium Gluconate 14 meq/ Multivitamins 10 ml/Chromium/ Copper/Manganese/ Seleni/Zn 1 ml/ Total Parenteral Nutrition/Amino Acids/Dextrose/ Fat Emuls... 1,920 ml @ 80 mls/hr TPN CONT IV Last administered on 12/29/18at 21:08; Start 12/29/18 at 22:00; Stop 12/30/18 at 21:59; Status DC Alteplase, Recombinant (Cathflo For Central Catheter Clearance) 1 mg PRN 1X PRN INT CAT SEE COMMENTS Last administered on 12/30/18at 09:54; Start 12/30/18 at 07:15 Furosemide (Lasix) 40 mg 1X ONCE IVP Last administered on 12/30/18at 11:42; Start 12/30/18 at 11:15; Stop 12/30/18 at 11:16; Status DC Sodium Chloride 200 meq/Sodium Phosphate 15 mmol/ Potassium Chloride 60 meq/ Potassium Phosphate 13.6 mmol/Magnesium Sulfate 30 meq/ Calcium Gluconate 14 meq/ Multivitamins 10 ml/Chromium/ Copper/Manganese/ Seleni/Zn 1 ml/ Total Parenteral Nutrition/Amino Acids/Dextrose/ Fat Emuls... 1,920 ml @ 80 mls/hr TPN CONT IV Last administered on 12/30/18at 22:38; Start 12/30/18 at 22:00; Stop 12/31/18 at 21:59; Status DC Furosemide (Lasix) 40 mg 1X ONCE IVP Last administered on 12/31/18at 11:56; Start 12/31/18 at 11:00; Stop 12/31/18 at 11:01; Status DC Amlodipine Besylate (Norvasc) 5 mg DAILY PO Last administered on 01/02/19at 08:53; Start 12/31/18 at 12:00 Sodium Chloride 200 meq/Sodium Phosphate 15 mmol/ Potassium Chloride 50 meq/ Potassium Phosphate 13.6 mmol/Magnesium Sulfate 30 meq/ Calcium Gluconate 14 meq/ Multivitamins 10 ml/Chromium/ Copper/Manganese/ Seleni/Zn 1 ml/ Total Parenteral Nutrition/Amino Acids/Dextrose/ Fat Emuls... 1,920 ml @ 80 mls/hr TPN CONT IV Last administered on 12/31/18at 21:09; Start 12/31/18 at 22:00; Stop 01/01/19 at 21:59; Status DC Furosemide (Lasix) 40 mg 1X ONCE IVP Last administered on 01/01/19at 11:20; Start 01/01/19 at 10:45; Stop 01/01/19 at 10:46; Status DC Sodium Chloride 200 meq/Sodium Phosphate 15 mmol/ Potassium Chloride 50 meq/ Potassium Phosphate 13.6 mmol/Magnesium Sulfate 30 meq/ Calcium Gluconate 14 meq/ Multivitamins 10 ml/Chromium/ Copper/Manganese/ Seleni/Zn 1 ml/ Total Parenteral Nutrition/Amino Acids/Dextrose/ Fat Emuls... 1,920 ml @ 80 mls/hr TPN CONT IV Last administered on 01/01/19at 22:41; Start 01/01/19 at 22:00; Stop 01/02/19 at 21:59 Active Scripts Active Nystatin 15 Gm Cream..g. 1 Sang TP BID [Pantoprazole] 40 MG Tablet.dr 40 Mg PO DAILYAC 30 Days Zinc Oxide 56.7 Gm Oint...g. 1 Sang TP BID Ambien (Zolpidem Tartrate) 5 Mg Tablet 5 Mg PO PRN QHS PRN 30 Days [Tpn Per Pharmacy] 1 EACH Each 1 Each MC PRN DAILY PRN TPN at 85cc/hour Sertraline Hcl 50 Mg Tablet 50 Mg PO DAILY 30 Days Lidocaine 35.44 Gm Oint...g. 1 Sang TP BID Reported Zofran Odt (Ondansetron) 4 Mg Tab.rapdis 1 Tab SL PRN Q8HRS PRN Zinc Oxide 56.7 Gm Oint...g. 56.7 Gm TP PRN BID Dilaudid (Hydromorphone Hcl) 2 Mg Tablet 1 Tab PO PRN QID PRN Lorazepam 0.5 Mg Tablet 0.5 Mg PO Q6HRS PRN Vitals/I & O Vital Sign - Last 24 Hours 01/01/19 01/01/19 01/01/19 01/01/19 11:04 11:06 11:20 15:11 Temp 98.8 97.7 98.8 97.7 Pulse 103 110 95 Resp 19 17 18 B/P (MAP) 128/91 132/91 (105) 151/69 (96) Pulse Ox 93 99 93 O2 Delivery Room Air Room Air Room Air 01/01/19 01/01/19 01/01/1901/01/19 15:44 16:15 19:45 20:00 Temp 97.4 97.4 Pulse 111 Resp 19 16 B/P (MAP) 147/94 (111) Pulse Ox 93 93 99 O2 Delivery Room Air Room Air Room Air Room Air 01/01/19 01/02/19 01/02/19 01/02/19 23:41 03:08 07:00 08:49 Temp 98.2 98.6 98.2 98.6 Pulse 121 118 105 Resp 16 16 12 19 B/P (MAP) 184/95 (124) 156/84 (108) Pulse Ox 100 99 100 O2 Delivery Room Air Room Air Room Air 01/02/19 08:53 Pulse 101 B/P (MAP) 156/84 Intake and Output 01/01/19 01/01/19 01/02/19 15:00 23:00 07:00 Intake Total 0 ml 240 ml 500 ml Output Total 1000 ml 250 ml 300 ml Balance -1000 ml -10 ml 200 ml Nutrition Consultation Dietary Evaluation: Recommendations by RD: PPN/TPN Comments: continue Home TPN and regular diet REC obtain Trig Expected Outcomes/Goals: to meet > 75% est nutr needs via TPN- met, goal ongoing Malnutrition Findings: Body Fat Depletion (Non Severe: Mild Depletion Weight Status: Underweight BENITA LUTZ MD Jan 02, 2019 10:23
[2019-01-02] MEDS: TPN PER PHARMACY MC PRN (10:37)
--- NOTE | 2019-01-02 10:37 | NUR ---
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 Possible D/C home tomorrow. R: Continue TPN @ current rate and above formula. Will monitor electrolytes, glucose, and tolerance to TPN. FUENTES [facility], 01/02/19 1037
[2019-01-02] MEDS ORDERED: FUROSEMIDE 40 MG/4 ML VIAL. IVP ONE (11:00)
--- NOTE | 2019-01-02 11:18 | PDOC ---
Objective: Objective: D/w nurse - still c/o abd pain, tolerating PO, no bleeding/stools. Vital Signs: Vital Signs Date Time Temp Pulse Resp B/P (MAP) Pulse Ox O2 Delivery O2 Flow Rate FiO2 01/02/19 08:53 101 156/84 01/02/19 08:49 19 100 Room Air 01/02/19 07:00 98.6 98.6 Labs: Laboratory Tests Test 01/02/19 06:20 White Blood Count 7.6 x10^3/uL Red Blood Count 2.20 x10^6/uL Hemoglobin 6.7 g/dL Hematocrit 20.1 % Mean Corpuscular Volume 91 fL Mean Corpuscular Hemoglobin 30 pg Mean Corpuscular Hemoglobin Concent 33 g/dL Red Cell Distribution Width 16.9 % Platelet Count 342 x10^3/uL Neutrophils (%) (Auto) 70 % Lymphocytes (%) (Auto) 16 % Monocytes (%) (Auto) 10 % Eosinophils (%) (Auto) 3 % Basophils (%) (Auto) 1 % Neutrophils # (Auto) 5.3 x10^3/uL Lymphocytes # (Auto) 1.2 x10^3/uL Monocytes # (Auto) 0.8 x10^3/uL Eosinophils # (Auto) 0.2 x10^3/uL Basophils # (Auto) 0.1 x10^3/uL Sodium Level 136 mmol/L Potassium Level 4.3 mmol/L Chloride Level 103 mmol/L Carbon Dioxide Level 26 mmol/L Anion Gap 7 Blood Urea Nitrogen 16 mg/dL Creatinine 0.6 mg/dL Estimated GFR (Cockcroft-Gault) 122.2 BUN/Creatinine Ratio 27 Glucose Level 97 mg/dL Calcium Level 8.6 mg/dL Magnesium Level 1.9 mg/dL Total Bilirubin 0.3 mg/dL Aspartate Amino Transf (AST/SGOT) 23 U/L Alanine Aminotransferase (ALT/SGPT) 18 U/L Alkaline Phosphatase 158 U/L Total Protein 7.0 g/dL Albumin 1.5 g/dL Albumin/Globulin Ratio 0.3 PE: GEN: NAD - talking to Dr. Cisneros NEURO/PSYCH: A & O 3 A/P: Chronic n/v, abd pain, and anemia Fistulae drainage, abd wall abscess - finished atbx -- No bleeding, plans for transfusion. MIESHA RICO Jan 02, 2019 11:18
[2019-01-02] MEDS: LORazepam 0.5 MG TABLET PO PRN (15:49)
--- NOTE | 2019-01-02 19:48 | NUR ---
Patient underwent transfusion of 1 unit packed rbc, no adverse reactions noted, lungs remained clear, SBP 160s HR 100s RR 16 Temp 97.8. She still complained of abdominal pain 7-10. Paged Dr. Cisneros regarding elevated BP, prn hydralazine ordered, notified next shift.
[2019-01-02] MEDS ORDERED: hydrALAZINE 20 MG/ML VIAL. IVP PRN (20:00)
[2019-01-02] MEDS ORDERED: TOTAL PARENTERAL NUTRITION IV SCH ×11 (22:00)
[2019-01-02] MEDS ORDERED: AMINO ACID IV SCH ×11 (22:00)
[2019-01-02] MEDS ORDERED: DEXTROSE 70% IV SCH ×11 (22:00)
[2019-01-02] MEDS ORDERED: [UNRECOGNIZED DRUG - OTHER] IV SCH ×11 (22:00)
[2019-01-03] VITALS (8 sets, daily range): BP systolic 124–165; BP diastolic 79–102
[2019-01-03] MEDS: LORazepam 0.5 MG TABLET PO PRN ×2 (01:48→19:11)
[2019-01-03] MEDS: HYDROmorphone 2 MG/ML VIAL IVP PRN ×4 (02:38→16:01)
[2019-01-03 06:07] LABS: BASO # 0.1 x10^3/uL (0.0-0.2); BASO % 2 % (0-3); EOS # 0.2 x10^3/uL (0.0-0.7); EOS % 3 % (0-3); HEMATOCRIT 27.2 % (36.0-47.0); HEMOGLOBIN 9.2 g/dL (12.0-15.5); LYMPH % 15 % (24-48); MEAN CORPUSCULAR HEMOGLOBIN 31 pg (25-35); MEAN CORPUSCULAR HGB CONC 34 g/dL (31-37); MEAN CORPUSCULAR VOLUME 92 fL (79-100); MONO # 0.6 x10^3/uL (0.0-1.1); MONO % 10 % (0-9); NEUT # 4.6 x10^3/uL (1.8-7.7); NEUT % 71 % (31-73); PLATELET COUNT 341 x10^3/uL (140-400); RED BLOOD COUNT 2.97 x10^6/uL (3.50-5.40); RED CELL DISTRIBUTION WIDTH 17.1 % (11.5-14.5); WHITE BLOOD COUNT 6.4 x10^3/uL (4.0-11.0)
[2019-01-03 08:03] LABS: CALCIUM 8.8 mg/dL (8.5-10.1); CREATININE 0.5 mg/dL (0.6-1.0); GFR 150.8; MAGNESIUM 1.9 mg/dL (1.8-2.4); PHOSPHORUS 3.4 mg/dL (2.6-4.7); POTASSIUM 4.4 mmol/L (3.5-5.1)
[2019-01-03] MEDS: PANTOPRAZOLE 40 MG TABLET.DR. PO SCH (10:02)
[2019-01-03] MEDS: LACTOBACILLUS RHAMNOSUS GG 1 CAPSULE. PO SCH (10:02)
[2019-01-03] MEDS: ZINC OXIDE 20% TOPICAL OINTMENT 28GM TUBE. TP SCH (10:02)
[2019-01-03] MEDS: LIDOCAINE/PRILOCAINE TOPICAL CREAM 5GM TUBE. TP SCH (10:02)
[2019-01-03] MEDS: amLODIPine BESYLATE 5 MG TABLET PO SCH (10:03)
--- NOTE | 2019-01-03 10:21 | PDOC ---
PROGRESS NOTES Subjective Subjective feels well. off of antibiotics. hgb 9.2 post transfusion. no black stools or obvious GI bleed. discussed with ID. bp 150 systolic. lab okay Objective Objective Vital Signs Date Time Temp Pulse Resp B/P (MAP) Pulse Ox O2 Delivery O2 Flow Rate FiO2 01/03/19 10:03 99 151/85 01/03/19 07:35 98.2 20 99 Room Air 98.2 Intake and Output 01/03/19 06:59 Intake Total 1418 ml Output Total 1400 ml Balance 18 ml Intake Oral 680 ml IV Total 50 ml Blood Product IV Normal Saline Flush 688 ml Output Urine Total 1400 ml # Voids 7 Physical Exam Abdomen: Soft Heart: Regular rate, Normal S1, Normal S2 Extremities: Other (2 plus bipedal edema) General: Alert HEENT: Atraumatic Lungs: Clear to auscultation Neuro: Normal speech Psych/Mental Status: Mental status NL Skin: No rashes Assessment Assessment ProblemsFever resolved She does not have leukocytosis or lactic acidosis 2. Severe hypokalemia. resolved 3. Severe hypomagnesemia.resolved 4. Enterocutaneous fistula. 5. peripheral edema legs 6. Severe protein-calorie malnutrition. 7. Enterovesical fistula. abdominal wall abscess. spontaneously draining. multiple organisms in culture . treated anemia hypertension. Medical Problems: (1) Fever Status: Acute (2) Severe protein-calorie malnutrition Status: Acute Plan Plan of Care dismiss today Comment Review of Relevant I have reviewed the following items lucila (where applicable) has been applied. Labs Laboratory Tests Test 01/02/19 06:20 01/03/19 05:55 01/03/19 07:34 White Blood Count 7.6 x10^3/uL (4.0-11.0) 6.4 x10^3/uL (4.0-11.0) Red Blood Count 2.20 x10^6/uL (3.50-5.40) 2.97 x10^6/uL (3.50-5.40) Hemoglobin 6.7 g/dL (12.0-15.5) 9.2 g/dL (12.0-15.5) Hematocrit 20.1 % (36.0-47.0) 27.2 % (36.0-47.0) Mean Corpuscular Volume 91 fL (79-100) 92 fL (79-100) Mean Corpuscular Hemoglobin 30 pg (25-35) 31 pg (25-35) Mean Corpuscular Hemoglobin Concent 33 g/dL (31-37) 34 g/dL (31-37) Red Cell Distribution Width 16.9 % (11.5-14.5) 17.1 % (11.5-14.5) Platelet Count 342 x10^3/uL (140-400) 341 x10^3/uL (140-400) Neutrophils (%) (Auto) 70 % (31-73) 71 % (31-73) Lymphocytes (%) (Auto) 16 % (24-48) 15 % (24-48) Monocytes (%) (Auto) 10 % (0-9) 10 % (0-9) Eosinophils (%) (Auto) 3 % (0-3) 3 % (0-3) Basophils (%) (Auto) 1 % (0-3) 2 % (0-3) Neutrophils # (Auto) 5.3 x10^3/uL (1.8-7.7) 4.6 x10^3/uL (1.8-7.7) Lymphocytes # (Auto) 1.2 x10^3/uL (1.0-4.8) 1.0 x10^3/uL (1.0-4.8) Monocytes # (Auto) 0.8 x10^3/uL (0.0-1.1) 0.6 x10^3/uL (0.0-1.1) Eosinophils # (Auto) 0.2 x10^3/uL (0.0-0.7) 0.2 x10^3/uL (0.0-0.7) Basophils # (Auto) 0.1 x10^3/uL (0.0-0.2) 0.1 x10^3/uL (0.0-0.2) Sodium Level 136 mmol/L (136-145) 136 mmol/L (136-145) Potassium Level 4.3 mmol/L (3.5-5.1) 4.4 mmol/L (3.5-5.1) Chloride Level 103 mmol/L (98-107) 103 mmol/L (98-107) Carbon Dioxide Level 26 mmol/L (21-32) 26 mmol/L (21-32) Anion Gap 7 (6-14) 7 (6-14) Blood Urea Nitrogen 16 mg/dL (7-20) 17 mg/dL (7-20) Creatinine 0.6 mg/dL (0.6-1.0) 0.5 mg/dL (0.6-1.0) Estimated GFR (Cockcroft-Gault) 122.2 150.8 BUN/Creatinine Ratio 27 (6-20) Glucose Level 97 mg/dL (70-99) 107 mg/dL (70-99) Calcium Level 8.6 mg/dL (8.5-10.1) 8.8 mg/dL (8.5-10.1) Magnesium Level 1.9 mg/dL (1.8-2.4) 1.9 mg/dL (1.8-2.4) Total Bilirubin 0.3 mg/dL (0.2-1.0) Aspartate Amino Transf (AST/SGOT) 23 U/L (15-37) Alanine Aminotransferase (ALT/SGPT) 18 U/L (14-59) Alkaline Phosphatase 158 U/L (46-116) Total Protein 7.0 g/dL (6.4-8.2) Albumin 1.5 g/dL (3.4-5.0) Albumin/Globulin Ratio 0.3 (1.0-1.7) Phosphorus Level 3.4 mg/dL (2.6-4.7) Laboratory Tests Test 01/03/19 05:55 01/03/19 07:34 White Blood Count 6.4 x10^3/uL (4.0-11.0) Red Blood Count 2.97 x10^6/uL (3.50-5.40) Hemoglobin 9.2 g/dL (12.0-15.5) Hematocrit 27.2 % (36.0-47.0) Mean Corpuscular Volume 92 fL (79-100) Mean Corpuscular Hemoglobin 31 pg (25-35) Mean Corpuscular Hemoglobin Concent 34 g/dL (31-37) Red Cell Distribution Width 17.1 % (11.5-14.5) Platelet Count 341 x10^3/uL (140-400) Neutrophils (%) (Auto) 71 % (31-73) Lymphocytes (%) (Auto) 15 % (24-48) Monocytes (%) (Auto) 10 % (0-9) Eosinophils (%) (Auto) 3 % (0-3) Basophils (%) (Auto) 2 % (0-3) Neutrophils # (Auto) 4.6 x10^3/uL (1.8-7.7) Lymphocytes # (Auto) 1.0 x10^3/uL (1.0-4.8) Monocytes # (Auto) 0.6 x10^3/uL (0.0-1.1) Eosinophils # (Auto) 0.2 x10^3/uL (0.0-0.7) Basophils # (Auto) 0.1 x10^3/uL (0.0-0.2) Sodium Level 136 mmol/L (136-145) Potassium Level 4.4 mmol/L (3.5-5.1) Chloride Level 103 mmol/L (98-107) Carbon Dioxide Level 26 mmol/L (21-32) Anion Gap 7 (6-14) Blood Urea Nitrogen 17 mg/dL (7-20) Creatinine 0.5 mg/dL (0.6-1.0) Estimated GFR (Cockcroft-Gault) 150.8 Glucose Level 107 mg/dL (70-99) Calcium Level 8.8 mg/dL (8.5-10.1) Phosphorus Level 3.4 mg/dL (2.6-4.7) Magnesium Level 1.9 mg/dL (1.8-2.4) Microbiology 12/21/18 Blood Culture - Final, Complete NO GROWTH AFTER 5 DAYS 12/25/18 Anaerobic/Aerobic Culture - Final, Complete 12/25/18 Anaerobic Culture Result 1 (ROYA) - Final, Complete 12/25/18 Aerobic Culture - Final, Complete 12/25/18 Aerobic Culture Result 1 (ROYA) - Final, Complete 12/25/18 Aerobic Culture Result 2 (ROYA) - Final, Complete 12/25/18 Aerobic Culture Result 3 (ROYA) - Final, Complete 12/25/18 Antimicrobic Susceptibility - Final, Complete 12/25/18 Gram Stain - Final, Complete 12/25/18 Gram Stain Result 1 (ROYA) - Final, Complete 12/25/18 Gram Stain Result 2 (ROYA) - Final, Complete 12/25/18 Gram Stain Result 3 (ROYA) - Final, Complete 12/26/18 Fecal Leukocyte Stain - Final, Complete 12/23/18 Anaerobic/Aerobic Culture - Final, Complete 12/23/18 Anaerobic Culture Result 1 (ROYA) - Final, Complete 12/23/18 Aerobic Culture - Final, Complete 12/23/18 Aerobic Culture Result 1 (ROYA) - Final, Complete 12/23/18 Aerobic Culture Result 2 (ROYA) - Final, Complete 12/23/18 Antimicrobic Susceptibility - Final, Complete 12/23/18 Gram Stain - Final, Complete 12/23/18 Gram Stain Result 1 (ROYA) - Final, Complete 12/23/18 Gram Stain Result 2 (ROYA) - Final, Complete Medications Current Medications Piperacillin Sod/ Tazobactam Sod 4.5 gm/Sodium Chloride 100 ml @ 200 mls/hr 1X ONCE IV Last administered on 12/21/18at 22:23; Start 12/21/18 at 22:00; Stop 12/21/18 at 22:29; Status DC Vancomycin HCl (Vanco Per Pharmacy) 1 each 1X ONCE MC ; Start 12/21/18 at 21:45; Stop 12/21/18 at 21:46; Status UNV Sodium Chloride 1,000 ml @ 1,320 mls/hr Q46M IV Last administered on 12/21/18at 22:24; Start 12/21/18 at 21:41; Stop 12/21/18 at 22:40; Status DC Hydromorphone HCl (Dilaudid) 1 mg PRN Q2HR PRN IVP PAIN Last administered on 12/22/18at 10:03; Start 12/21/18 at 22:30; Stop 12/22/18 at 12:24; Status DC Potassium Chloride/Water 50 ml @ 50 mls/hr Q1H IV Last administered on 12/22/18at 01:09; Start 12/21/18 at 23:00; Stop 12/22/18 at 00:59; Status DC Potassium Chloride (Klor-Con) 40 meq 1X ONCE PO ; Start 12/21/18 at 23:00; Stop 12/21/18 at 23:01; Status DC Linezolid/Dextrose 300 ml @ 300 mls/hr Q12HR IV Last administered on 12/25/18at 08:31; Start 12/22/18 at 09:00; Stop 12/25/18 at 13:54; Status DC Ondansetron HCl (Zofran) 4 mg PRN Q8HRS PRN IV NAUSEA/VOMITING Last administered on 12/22/18at 11:38; Start 12/21/18 at 23:30; Stop 12/22/18 at 23:29; Status DC Fentanyl Citrate (Fentanyl 2ml Vial) 50 mcg PRN Q1HR PRN IV PAIN; Start 12/21/18 at 23:30; Stop 12/22/18 at 23:29; Status DC Sodium Chloride 1,000 ml @ 100 mls/hr Q10H IV Last administered on 12/22/18at 11:37; Start 12/21/18 at 23:30; Stop 12/22/18 at 12:24; Status DC Magnesium Sulfate 3 gm/Dextrose 106 ml @ 35.333 mls/ hr 1X ONCE IV Last administered on 12/22/18at 00:05; Start 12/21/18 at 23:45; Stop 12/22/18 at 02:44; Status DC Piperacillin Sod/ Tazobactam Sod 3.375 gm/Sodium Chloride 50 ml @ 100 mls/hr Q6HRS IV Last administered on 12/29/18at 05:28; Start 12/22/18 at 12:00; Stop 12/29/18 at 10:44; Status DC Hydromorphone HCl (Dilaudid) 2 mg PRN Q4HRS PRN IVP SEVERE PAIN 7-10 Last administered on 12/26/18at 03:44; Start 12/22/18 at 12:15; Stop 12/26/18 at 04:08; Status DC Hydromorphone HCl (Dilaudid) 4 mg PRN Q4HRS PRN IV SEVERE PAIN 7-10 Last administered on 12/25/18at 09:50; Start 12/22/18 at 12:15; Stop 12/25/18 at 12:09; Status DC Acetaminophen (Tylenol) 650 mg PRN Q6HRS PRN PO MILD PAIN / TEMP; Start 12/22/18 at 12:15 Ondansetron HCl (Zofran) 4 mg PRN Q6HRS PRN IV NAUSEA/VOMITING, 1st choice; Start 12/22/18 at 12:15 Lidocaine/ Prilocaine (Emla) 1 sang BID TP Last administered on 01/03/19 10:02; Start 12/22/18 at 21:00 Zinc Oxide (Zinc Oxide 20% Topical) 1 sang BID TP Last administered on 01/03/19 10:02; Start 12/22/18 at 21:00 Lorazepam (Ativan) 0.5 mg PRN Q6HRS PRN PO ANXIETY / AGITATION Last administered on 01/03/19 01:48; Start 12/22/18 at 12:15 Zolpidem Tartrate (Ambien) 5 mg PRN QHS PRN PO INSOMNIA Last administered on 01/01/19 22:45; Start 12/22/18 at 12:15 Magnesium Sulfate 50 ml @ 25 mls/hr 1X ONCE IV Last administered on 12/22/18 13:40; Start 12/22/18 at 14:00; Stop 12/22/18 at 15:59; Status DC Potassium Chloride/Dextrose/ Sod Cl 1,000 ml @ 80 mls/hr [id number] IV Last administered on 12/22/18 12:56; Start 12/22/18 at 13:00; Stop 12/22/18 at 22:00; Status DC Lactobacillus Rhamnosus (Culturelle) 1 cap BID PO Last administered on 01/03/19 10:02; Start 12/22/18 at 21:00 Sodium Chloride 220 meq/Potassium Chloride 100 meq/ Potassium Phosphate 6.81 mmol/Magnesium Sulfate 40 meq/ Calcium Gluconate 14 meq/ Multivitamins 10 ml/Chromium/ Copper/Manganese/ Seleni/Zn 1 ml/ Sodium Phosphate 9.99 mmol/Total Parenteral Nutrition/Amino Acids/Dextrose/ Fat Emuls... 1,920 ml @ 80 mls/hr TPN CONT IV Last administered on 12/22/18 21:43; Start 12/22/18 at 22:00; Stop 12/23/18 at 21:59; Status DC Info (Tpn Per Pharmacy) 1 each PRN DAILY PRN MC SEE COMMENTS Last administered on 01/02/19at 10:37; Start 12/22/18 at 14:15 Info (Tpn Per Pharmacy) 1 each PRN DAILY PRN MC SEE COMMENTS; Start 12/22/18 at 14:30; Status Cancel Pantoprazole Sodium (Protonix) 40 mg DAILYAC PO Last administered on 01/03/19at 10:02; Start 12/23/18 at 07:30 Ondansetron HCl (Zofran) 8 mg PRN Q6HRS PRN IV NAUSEA/VOMITING, 2nd choice Last administered on 12/23/18at 18:08; Start 12/22/18 at 17:30 Potassium Chloride/Water 50 ml @ 50 mls/hr Q1H IV Last administered on 12/22/18at 20:14; Start 12/22/18 at 17:45; Stop 12/22/18 at 19:44; Status DC Sodium Chloride 200 meq/Potassium Chloride 100 meq/ Potassium Phosphate 13.6 mmol/Magnesium Sulfate 35 meq/ Calcium Gluconate 14 meq/ Multivitamins 10 ml/Chromium/ Copper/Manganese/ Seleni/Zn 1 ml/ Sodium Phosphate 9.99 mmol/Total Parenteral Nutrition/Amino Acids/Dextrose/ Fat Emuls... 1,920 ml @ 80 mls/hr TPN CONT IV Last administered on 12/23/18at 20:58; Start 12/23/18 at 22:00; Stop 12/24/18 at 21:59; Status DC Hydromorphone HCl (Dilaudid) 2 mg 1X ONCE IV Last administered on 12/23/18at 14:26; Start 12/23/18 at 14:30; Stop 12/23/18 at 14:31; Status DC Amlodipine Besylate (Norvasc) 5 mg DAILY PO Last administered on 12/27/18at 08:32; Start 12/24/18 at 13:00; Stop 12/27/18 at 11:58; Status DC Furosemide (Lasix) 20 mg 1X ONCE IVP Last administered on 12/24/18at 11:59; Start 12/24/18 at 11:45; Stop 12/24/18 at 11:48; Status DC Sodium Phosphate 20 mmol/Dextrose 256.6667 ml @ 64.167 m... 1X ONCE IV Last administered on 12/24/18at 13:40; Start 12/24/18 at 13:00; Stop 12/24/18 at 16:59; Status DC Lidocaine/ Epinephrine (LIDOCAINE 1%-EPI 1:100,000 Multi-Dose) 20 ml 1X ONCE IN J ; Start 12/24/18 at 12:15; Stop 12/24/18 at 12:16; Status DC Sodium Chloride 200 meq/Sodium Phosphate 15 mmol/ Potassium Chloride 50 meq/ Potassium Phosphate 13.6 mmol/Magnesium Sulfate 25 meq/ Calcium Gluconate 14 meq/ Multivitamins 10 ml/Chromium/ Copper/Manganese/ Seleni/Zn 1 ml/ Total Parenteral Nutrition/Amino Acids/Dextrose/ Fat Emuls... 1,920 ml @ 80 mls/hr TPN CONT IV Last administered on 12/24/18at 20:54; Start 12/24/18 at 22:00; Stop 12/25/18 at 21:59; Status DC Diphenhydramine HCl (Benadryl) 25 mg PRN Q6HRS PRN PO ITCHING Last administered on 12/24/18at 17:53; Start 12/24/18 at 17:45 Sodium Chloride 200 meq/Sodium Phosphate 15 mmol/ Potassium Chloride 40 meq/ Potassium Phosphate 13.6 mmol/Magnesium Sulfate 25 meq/ Calcium Gluconate 14 meq/ Multivitamins 10 ml/Chromium/ Copper/Manganese/ Seleni/Zn 1 ml/ Total Parenteral Nutrition/Amino Acids/Dextrose/ Fat Emuls... 1,920 ml @ 80 mls/hr TPN CONT IV Last administered on 12/25/18at 22:39; Start 12/25/18 at 22:00; Stop 12/26/18 at 21:59; Status DC Hydromorphone HCl (Dilaudid) 2 mg PRN Q4HRS PRN IVP MODERATE PAIN 4-6 Last administered on 01/02/19at 22:32; Start 12/26/18 at 04:15 Hydromorphone HCl (Dilaudid) 4 mg PRN Q4HRS PRN IVP SEVERE PAIN 7-10 Last administered on 01/03/19at 07:00; Start 12/26/18 at 04:15 Furosemide (Lasix) 40 mg 1X ONCE IVP Last administered on 12/26/18at 12:16; Start 12/26/18 at 12:00; Stop 12/26/18 at 12:01; Status DC Sodium Chloride 200 meq/Sodium Phosphate 15 mmol/ Potassium Chloride 40 meq/ Potassium Phosphate 13.6 mmol/Magnesium Sulfate 25 meq/ Calcium Gluconate 14 meq/ Multivitamins 10 ml/Chromium/ Copper/Manganese/ Seleni/Zn 1 ml/ Total Parenteral Nutrition/Amino Acids/Dextrose/ Fat Emuls... 1,920 ml @ 80 mls/hr TPN CONT IV Last administered on 12/26/18at 21:44; Start 12/26/18 at 22:00; Stop 12/27/18 at 21:59; Status DC Sodium Phosphate 15 mmol/Dextrose 255 ml @ 63.75 mls/ hr 1X ONCE IV Last administered on 12/26/18at 14:53; Start 12/26/18 at 14:00; Stop 12/26/18 at 17:59; Status DC Hydromorphone HCl (Dilaudid) 2 mg 1X ONCE IV Last administered on 12/26/18at 14:52; Start 12/26/18 at 15:00; Stop 12/26/18 at 15:01; Status DC Magnesium Sulfate 50 ml @ 25 mls/hr 1X ONCE IV Last administered on 12/27/18at 13:12; Start 12/27/18 at 12:00; Stop 12/27/18 at 13:59; Status DC Sodium Chloride 200 meq/Sodium Phosphate 15 mmol/ Potassium Chloride 60 meq/ Potassium Phosphate 13.6 mmol/Magnesium Sulfate 30 meq/ Calcium Gluconate 14 meq/ Multivitamins 10 ml/Chromium/ Copper/Manganese/ Seleni/Zn 1 ml/ Total Parenteral Nutrition/Amino Acids/Dextrose/ Fat Emuls... 1,920 ml @ 80 mls/hr TPN CONT IV Last administered on 12/27/18at 21:29; Start 12/27/18 at 22:00; Stop 12/28/18 at 21:59; Status DC Micafungin Sodium 100 mg/Dextrose 100 ml @ 100 mls/hr Q24H IV Last administered on 01/02/19at 09:28; Start 12/28/18 at 10:00; Stop 01/02/19 at 10:17; Status DC Furosemide (Lasix) 40 mg 1X ONCE IVP Last administered on 12/28/18at 12:31; Start 12/28/18 at 11:30; Stop 12/28/18 at 11:31; Status DC Sodium Chloride 200 meq/Sodium Phosphate 15 mmol/ Potassium Chloride 60 meq/ Potassium Phosphate 13.6 mmol/Magnesium Sulfate 30 meq/ Calcium Gluconate 14 meq/ Multivitamins 10 ml/Chromium/ Copper/Manganese/ Seleni/Zn 1 ml/ Total Parenteral Nutrition/Amino Acids/Dextrose/ Fat Emuls... 1,920 ml @ 80 mls/hr TPN CONT IV Last administered on 12/28/18at 23:21; Start 12/28/18 at 22:00; Stop 12/29/18 at 21:59; Status DC Meropenem 500 mg/ Sodium Chloride 50 ml @ 100 mls/hr Q6HRS IV Last administered on 01/02/19at 06:16; Start 12/29/18 at 12:00; Stop 01/02/19 at 10:17; Status DC Sodium Chloride 200 meq/Sodium Phosphate 15 mmol/ Potassium Chloride 60 meq/ Potassium Phosphate 13.6 mmol/Magnesium Sulfate 30 meq/ Calcium Gluconate 14 meq/ Multivitamins 10 ml/Chromium/ Copper/Manganese/ Seleni/Zn 1 ml/ Total Par enteral Nutrition/Amino Acids/Dextrose/ Fat Emuls... 1,920 ml @ 80 mls/hr TPN CONT IV Last administered on 12/29/18at 21:08; Start 12/29/18 at 22:00; Stop 12/30/18 at 21:59; Status DC Alteplase, Recombinant (Cathflo For Central Catheter Clearance) 1 mg PRN 1X PRN INT CAT SEE COMMENTS Last administered on 12/30/18at 09:54; Start 12/30/18 at 07:15 Furosemide (Lasix) 40 mg 1X ONCE IVP Last administered on 12/30/18at 11:42; Start 12/30/18 at 11:15; Stop 12/30/18 at 11:16; Status DC Sodium Chloride 200 meq/Sodium Phosphate 15 mmol/ Potassium Chloride 60 meq/ Potassium Phosphate 13.6 mmol/Magnesium Sulfate 30 meq/ Calcium Gluconate 14 meq/ Multivitamins 10 ml/Chromium/ Copper/Manganese/ Seleni/Zn 1 ml/ Total Parenteral Nutrition/Amino Acids/Dextrose/ Fat Emuls... 1,920 ml @ 80 mls/hr TPN CONT IV Last administered on 12/30/18at 22:38; Start 12/30/18 at 22:00; Stop 12/31/18 at 21:59; Status DC Furosemide (Lasix) 40 mg 1X ONCE IVP Last administered on 12/31/18at 11:56; Start 12/31/18 at 11:00; Stop 12/31/18 at 11:01; Status DC Amlodipine Besylate (Norvasc) 5 mg DAILY PO Last administered on 01/03/19at 10:03; Start 12/31/18 at 12:00 Sodium Chloride 200 meq/Sodium Phosphate 15 mmol/ Potassium Chloride 50 meq/ Potassium Phosphate 13.6 mmol/Magnesium Sulfate 30 meq/ Calcium Gluconate 14 meq/ Multivitamins 10 ml/Chromium/ Copper/Manganese/ Seleni/Zn 1 ml/ Total Parenteral Nutrition/Amino Acids/Dextrose/ Fat Emuls... 1,920 ml @ 80 mls/hr TPN CONT IV Last administered on 12/31/18at 21:09; Start 12/31/18 at 22:00; Stop 01/01/19 at 21:59; Status DC Furosemide (Lasix) 40 mg 1X ONCE IVP Last administered on 01/01/19at 11:20; Start 01/01/19 at 10:45; Stop 01/01/19 at 10:46; Status DC Sodium Chloride 200 meq/Sodium Phosphate 15 mmol/ Potassium Chloride 50 meq/ Potassium Phosphate 13.6 mmol/Magnesium Sulfate 30 meq/ Calcium Gluconate 14 meq/ Multivitamins 10 ml/Chromium/ Copper/Manganese/ Seleni/Zn 1 ml/ Total Parenteral Nutrition/Amino Acids/Dextrose/ Fat Emuls... 1,920 ml @ 80 mls/hr TPN CONT IV Last administered on 01/01/19at 22:41; Start 01/01/19 at 22:00; Stop 01/02/19 at 21:59; Status DC Furosemide (Lasix) 40 mg 1X ONCE IVP Last administered on 01/02/19at 12:05; Start 01/02/19 at 11:00; Stop 01/02/19 at 11:01; Status DC Sodium Chloride 200 meq/Sodium Phosphate 15 mmol/ Potassium Chloride 50 meq/ Potassium Phosphate 13.6 mmol/Magnesium Sulfate 30 meq/ Calcium Gluconate 14 meq/ Multivitamins 10 ml/Chromium/ Copper/Manganese/ Seleni/Zn 1 ml/ Total Parenteral Nutrition/Amino Acids/Dextrose/ Fat Emuls... 1,920 ml @ 80 mls/hr TPN CONT IV Last administered on 01/03/19at 03:21; Start 01/02/19 at 22:00; Stop 01/03/19 at 21:59 Hydralazine HCl (Apresoline Inj) 10 mg PRN Q6HRS PRN IVP ELEVATED BP, SEE COMMENTS Last administered on 01/02/19at 20:12; Start 01/02/19 at 20:00 Active Scripts Active Nystatin 15 Gm Cream..g. 1 Sang TP BID [Pantoprazole] 40 MG Tablet.dr 40 Mg PO DAILYAC 30 Days Zinc Oxide 56.7 Gm Oint...g. 1 Sang TP BID Ambien (Zolpidem Tartrate) 5 Mg Tablet 5 Mg PO PRN QHS PRN 30 Days [Tpn Per Pharmacy] 1 EACH Each 1 Each MC PRN DAILY PRN TPN at 85cc/hour Sertraline Hcl 50 Mg Tablet 50 Mg PO DAILY 30 Days Lidocaine 35.44 Gm Oint...g. 1 Sang TP BID Reported Zofran Odt (Ondansetron) 4 Mg Tab.rapdis 1 Tab SL PRN Q8HRS PRN Zinc Oxide 56.7 Gm Oint...g. 56.7 Gm TP PRN BID Dilaudid (Hydromorphone Hcl) 2 Mg Tablet 1 Tab PO PRN QID PRN Lorazepam 0.5 Mg Tablet 0.5 Mg PO Q6HRS PRN Vitals/I & O Vital Sign - Last 24 Hours 01/02/19 01/02/19 01/02/19 01/02/19 11:00 13:02 14:12 14:27 Temp 97.4 98.1 97.3 97.4 98.1 97.3 Pulse 116 117 113 Resp 06 01 19 18 B/P (MAP) 159/92 (114) 166/98 161/107 Pulse Ox 100 100 O2 Delivery Room Air Room Air 01/02/19 01/02/19 01/02/19 01/02/19 15:00 15:12 16:12 17:30 Temp 97.5 97.8 97.4 97.8 97.5 97.8 97.4 97.8 Pulse 116 111 112 111 Resp 12 16 17 16 B/P (MAP) 164/129 (141) 164/104 162/107 160/100 Pulse Ox 98 O2 Delivery Room Air 01/02/19 01/02/19 01/02/19 01/02/19 17:30 17:50 18:20 19:06 Temp 97.8 98.1 97.8 98.1 Pulse 110 118 Resp 16 19 17 16 B/P (MAP) 164/101 (122) 173/113 (133) Pulse Ox 100 100 100 O2 Delivery Room Air Room Air Room Air 01/02/19 01/02/19 01/02/19 01/02/19 20:00 20:12 22:32 23:02 Pulse 118 B/P (MAP) 173/113 Pulse Ox 100 98 O2 Delivery Room Air Room Air Room Air 01/02/19 01/03/19 01/03/19 01/03/19 23:56 00:14 00:14 01:30 Temp 98.7 98.8 98.7 98.8 98.7 98.8 98.7 98.8 Pulse 129 125 129 123 Resp 16 20 18 B/P (MAP) 137/84 (101) 137/87 137/84 124/82 Pulse Ox 98 O2 Delivery Room Air 01/03/19 01/03/19 01/03/19 01/03/19 02:30 02:38 03:35 03:57 Temp 98.1 98.5 98.5 98.1 98.5 98.5 Pulse 118 109 104 Resp 20 20 16 B/P (MAP) 135/89 152/79 152/79 (103) Pulse Ox 98 99 O2 Delivery Room Air Room Air 01/03/19 01/03/19 01/03/19 01/03/19 07:00 07:30 07:35 10:03 Temp 98.2 98.2 Pulse 99 99 Resp 20 B/P (MAP) 151/85 (107) 151/85 Pulse Ox 99 99 99 O2 Delivery Room Air Room Air Room Air Intake and Output 01/02/19 01/02/19 01/03/19 14:59 22:59 06:59 Intake Total 538 ml 440 ml 440 ml Output Total 1000 ml 400 ml Balance -462 ml 40 ml 440 ml Nutrition Consultation Dietary Evaluation: Recommendations by RD: PPN/TPN Comments: continue Home TPN and regular diet REC obtain Trig Expected Outcomes/Goals: to meet > 75% est nutr needs via TPN- met, goal ongoing Malnutrition Findings: Body Fat Depletion (Non Severe: Mild Depletion Weight Status: Underweight BENITA LTUZ MD Jan 03, 2019 10:21
[2019-01-03] MEDS ORDERED: AMLO5TAB10 PO (10:31)
[2019-01-03] MEDS ORDERED: ACET325T9 PO (10:31)
--- NOTE | 2019-01-03 10:34 | SNU/HH DC ---
DISCHARGE WITH HOME HEALTH DISCHARGE INFORMATION: Discharge Date: Jan 03, 2019 Final Diagnosis: Problems abdominal wall abscess. enterocutaneous fistula Medical Problems: (1) Fever Status: Acute (2) Severe protein-calorie malnutrition Status: Acute Condition on Discharge: Stable CODE STATUS: Code Status: Full HOME HEALTH: Face to Face: I certify this patient is under my care and that I, or a nurse practitioner or physician's occupational therapist's assistant working with me, had a face to face encounter that meets the physician face to face encounter requirements with this patient on [01/03/19]. RN For Eval/Treatment: Yes Pt Meets Homebound Status: Limited distance walking POST DISCHARGE ORDERS: Activity Instructions for Disc: Activity as tolerated Weight Bearing Status after Di: As tolerated Bathing Instructions: Shower-keep dressing dry, No Tub Bath until see DIET AFTER DISCHARGE: TPN new formula at 85 cc/hour Wound/Incision Care: Reinforce dressing PRN, Routine catheter care CHECKS AFTER DISCHARGE: Checks after discharge: Check blood press - daily, Check your Temp as needed, Weigh Yourself Daily FOLLOW-UP: PCP to follow Home Health: yes Follow up with: dr. lutz next week Follow Up With: cbc/cmp/magnesium/phosphorus every wednesday via home health DC TO SNF LABS: fax lab results to dr. lutz. fax [phone] TREATMENT/EQUIPMENT ORDERS: Adaptive Equipment Issued: None CERTIFICATION STATEMENT: Certification Statement: Certification Statement: Based on the above finding, I certify that this patient is confined to the home and needs intermittent longterm care, physical therapy and/or speech therapy, or continues to need occupational therapy.~ This patient is under my care, and I have initiated the establishment of the plan of care.~ This patient will be followed by myself or a community physician who will periodically review the plan of care. Home Meds Active Scripts Acetaminophen (TYLENOL) 325 Mg Tablet, 650 MG PO PRN Q6HRS PRN for MILD PAIN / TEMP, #30 TAB Prov:BENITA LUTZ MD 01/03/19 Amlodipine Besylate (AMLODIPINE BESYLATE) 5 Mg Tablet, 5 MG PO DAILY for HTN, #30 TAB Prov:BENITA LUTZ MD 01/03/19 Nystatin (NYSTATIN) 15 Gm Cream..g., 1 WANDY TP BID for yeast rash, #1 EACH Prov:BENITA LUTZ MD 08/13/18 [Pantoprazole] [address].DR Stuart Conflict Check, 40 MG PO DAILYAC for gerd for 30 Days Prov:BENITA LUTZ MD 08/13/18 Zinc Oxide (ZINC OXIDE) 56.7 Gm Oint...g., 1 WANDY TP BID for abdominal skin excor iation, #30 GR Prov:BENITA LUTZ MD 07/11/18 Zolpidem Tartrate (AMBIEN) 5 Mg Tablet, 5 MG PO PRN QHS PRN for INSOMNIA for 30 Days, TAB Prov:BENITA LUTZ MD 06/23/18 [Tpn Per Pharmacy] 1 EACH EACH Sade Conflict Check, 1 EACH PRN DAILY PRN for SEE COMMENTS TPN at 85cc/hour Prov:BENITA LUTZ MD 06/23/18 Sertraline Hcl (SERTRALINE HCL) 50 Mg Tablet, 50 MG PO DAILY for 30 Days, #30 TAB Prov:BENITA LUTZ MD 01/05/17 Lidocaine (LIDOCAINE) 35.44 Gm Oint...g., 1 WANDY TP BID, #30 Prov:BENITA LUTZ MD 12/18/15 Reported Medications Ondansetron (ZOFRAN ODT) 4 Mg Tab.rapdis, 1 TAB SL PRN Q8HRS PRN for NAUSEA/VOMITING 01/09/17 Zinc Oxide (ZINC OXIDE) 56.7 Gm Oint...g., 56.7 GM TP PRN BID 01/09/17 Hydromorphone Hcl (DILAUDID) 2 Mg Tablet, 1 TAB PO PRN QID PRN for PAIN 01/09/17 Lorazepam (LORAZEPAM) 0.5 Mg Tablet, 0.5 MG PO Q6HRS PRN for ANXIETY, TAB 08/31/16 BENITA LUTZ MD Jan 03, 2019 10:34
--- NOTE | 2019-01-03 10:39 | PDOC ---
Provider Note Provider Note discharge summary dictated # [id number] BENITA LUTZ MD Jan 03, 2019 10:39
--- NOTE | 2019-01-03 11:12 | PDOC ---
Subjective: Subjective: Doing better today. Objective: Vital Signs: Vital Signs Date Time Temp Pulse Resp B/P (MAP) Pulse Ox O2 Delivery O2 Flow Rate FiO2 01/03/19 10:03 99 151/85 01/03/19 07:35 98.2 20 99 Room Air 98.2 Labs: Laboratory Tests Test 01/03/19 05:55 01/03/19 07:34 White Blood Count 6.4 x10^3/uL Red Blood Count 2.97 x10^6/uL Hemoglobin 9.2 g/dL Hematocrit 27.2 % Mean Corpuscular Volume 92 fL Mean Corpuscular Hemoglobin 31 pg Mean Corpuscular Hemoglobin Concent 34 g/dL Red Cell Distribution Width 17.1 % Platelet Count 341 x10^3/uL Neutrophils (%) (Auto) 71 % Lymphocytes (%) (Auto) 15 % Monocytes (%) (Auto) 10 % Eosinophils (%) (Auto) 3 % Basophils (%) (Auto) 2 % Neutrophils # (Auto) 4.6 x10^3/uL Lymphocytes # (Auto) 1.0 x10^3/uL Monocytes # (Auto) 0.6 x10^3/uL Eosinophils # (Auto) 0.2 x10^3/uL Basophils # (Auto) 0.1 x10^3/uL Sodium Level 136 mmol/L Potassium Level 4.4 mmol/L Chloride Level 103 mmol/L Carbon Dioxide Level 26 mmol/L Anion Gap 7 Blood Urea Nitrogen 17 mg/dL Creatinine 0.5 mg/dL Estimated GFR (Cockcroft-Gault) 150.8 Glucose Level 107 mg/dL Calcium Level 8.8 mg/dL Phosphorus Level 3.4 mg/dL Magnesium Level 1.9 mg/dL PE: GEN: NAD, sitting on edge of bed, smiling - looks better today LUNGS: room air NEURO/PSYCH: A & O 3 A/P: Chronic n/v, abd pain w/ intermittent fistulae drainage, anemia -- Hgb improved w/ transfusion - still no bleeding. D/w Dr. Cisneros - plans to DC today w/ HH. MIESHA RICO Jan 03, 2019 11:12
--- NOTE | 2019-01-03 12:09 | DS ---
DATE OF DISCHARGE: 01/03/2019 CONSULTANTS: Include Dr. Franklin, Dr. Ovalle, Dr. Mariza Suggs as well as Dr. Garcia Suggs and Dr. Muniz. FINAL DIAGNOSES: 1. Abdominal wall abscess. 2. Fever secondary to abdominal wall abscess. 3. Severe hypokalemia. 4. Severe hypomagnesemia. 5. Enterocutaneous fistula. 6. Enterovesical fistula. 7. Peripheral bilateral lower extremity edema. 8. Severe protein-calorie malnutrition. 9. Anemia of chronic disease. 10. Hypertension. HOSPITAL COURSE: The patient is a 63-year-old female with history of enterocutaneous fistula and enterovesical fistula, maintained on home total parenteral nutrition, with a fever of 102 degrees at home and took Tylenol and then it came down to 99 degrees. She had some intermittent loose stools for some time. She has some abdominal pain, which is chronic. She denies any cough. She had a CAT scan of the abdomen and pelvis done without IV contrast, showed a fatty liver, mildly dilated esophagus, nonspecific mild bowel dilatation. She had abdominal wall abscess that spontaneously drained. Cultures were done. Seen by Dr. Mariza Suggs, Dr. Garcia Suggs, Dr. Muniz for Infectious Disease, Dr. Franklin for General Surgery, and Dr. Ovalle for GI. The abscess spontaneously drained. Cultures were done. She received IV antibiotics. She completed a course of IV antibiotics and the abscess was essentially resolved without any significant drainage. She has chronic abdominal pain for which she takes Dilaudid p.r.n. She had severe hypokalemia and hypomagnesemia secondary to enterocutaneous fistula and then she received supplemental IV magnesium and potassium and her potassium and magnesium was adjusted in her TPN. She did drop her hemoglobin, received 2 units of packed red blood cells. Her hemoglobin was 6.7 yesterday, 10.1 on admission; and today, the white count 6.4, hemoglobin 9.2, platelet count 341,000, 71 polys, 15 lymphocytes. Sodium 136, potassium 4.4, chloride 103, total CO2 of 26, BUN 17, creatinine 0.5, magnesium 1.9, phosphorus 3.4, calcium 8.8 with a blood sugar of 107. She was told to elevate her legs. Blood pressure was high and she was thus started on amlodipine. It is anticipated that she will be dismissed to home with home health, where she will continue with her TPN. I spoke with the pharmacist yesterday to get a hold of her pharmacist as an outpatient to make sure she has the same formula that she is receiving right now at home. She will elevate her legs for the peripheral edema. She does eat eggs and cottage cheese. She will be having a CBC, CMP, magnesium and phosphorus every Wednesday. Results to be faxed to Dr. Cisneros. She will be dismissed on Dilaudid 2 mg p.o. q.i.d. p.r.n., which she has at home, lidocaine 5% followed by zinc oxide 20% to excoriated areas of her abdominal wall b.i.d., lorazepam 0.5 mg every 6 hours p.r.n. for anxiety, Protonix 40 mg every day, sertraline 50 mg every day, Ambien 5 mg at bedtime p.r.n., Tylenol 325 mg 1-2 every 4 hours p.r.n., Zofran 4 mg p.o. every 6 hours p.r.n. and amlodipine 5 mg 1 every day. She will make an appointment to see Dr. Cisneros in the office next week. She will be followed by home health. She will continue with her TPN at home, same formula that she is receiving at the hospital right now. BENITA CISNEROS MD DR: NABILA/jd JOB#: [id number] / [id number]
--- NOTE | 2019-01-03 12:57 | NUR ---
SS following up with discharge planning. Discharge orders received for home healthcare and TPN. SS faxed clinical documentation for TPN to [facility]. SS contacted [facility], ; fax [phone], and spoke with pharmacist Shashi. Shashi confirmed that they had all documentation they needed for TPN and would be ready for discharge today. SS phoned and faxed home healthcare referral to [facility], ; fax [phone]. Pt and pt's RN notified.
--- NOTE | 2019-01-03 18:34 | NUR ---
Discharge instructions given to patient regarding follow up appointment with Dr. Cisneros, medications, and TPN. Education given over blood pressure medication and fever. Patient verbalized understanding.
--- NOTE | 2019-01-03 19:15 | NUR ---
Patient dc'd to home 1914
== END 2019-01-03 19:20 | disposition home health service (06) | DRG 393 ==
LOC: ER 20:14 → 6 SOUTH 23:14
PROVIDERS: ADMIT Internal Medicine; ATTEND Internal Medicine
PROC: 30233N1 Transfusion of Nonautologous Red Blood Cells into Peripheral Vein, Percutaneous Approach (ICD-10-PCS; principal; 2018-12-21)
PROC: 0W9F3ZZ Drainage of Abdominal Wall, Percutaneous Approach (ICD-10-PCS; 2018-12-21)
DX: K63.2 Fistula of intestine (principal); E43 Unspecified severe protein-calorie malnutrition; L02.211 Cutaneous abscess of abdominal wall; Z68.1 Body mass index [BMI] 19.9 or less, adult; K91.2 Postsurgical malabsorption, not elsewhere classified; E87.6 Hypokalemia; N18.9 Chronic kidney disease, unspecified; E83.42 Hypomagnesemia; I12.9 Hypertensive chronic kidney disease with stage 1 through stage 4 chronic kidney disease, or unspecified chronic kidney disease; F32.9 Major depressive disorder, single episode, unspecified; K76.0 Fatty (change of) liver, not elsewhere classified; F41.9 Anxiety disorder, unspecified; F43.10 Post-traumatic stress disorder, unspecified; E03.9 Hypothyroidism, unspecified; K21.0 Gastro-esophageal reflux disease with esophagitis; G89.29 Other chronic pain; D63.8 Anemia in other chronic diseases classified elsewhere; M19.90 Unspecified osteoarthritis, unspecified site; B96.20 Unspecified Escherichia coli [E. coli] as the cause of diseases classified elsewhere; D72.819 Decreased white blood cell count, unspecified; B95.2 Enterococcus as the cause of diseases classified elsewhere; B96.1 Klebsiella pneumoniae [K. pneumoniae] as the cause of diseases classified elsewhere; K22.8 Other specified diseases of esophagus; Z91.048 Other nonmedicinal substance allergy status; Z87.11 Personal history of peptic ulcer disease; Z86.14 Personal history of Methicillin resistant Staphylococcus aureus infection; Z90.710 Acquired absence of both cervix and uterus; Z85.41 Personal history of malignant neoplasm of cervix uteri; Z90.49 Acquired absence of other specified parts of digestive tract; Z79.899 Other long term (current) drug therapy; Z86.718 Personal history of other venous thrombosis and embolism; Z91.041 Radiographic dye allergy status; Z88.5 Allergy status to narcotic agent; Z88.8 Allergy status to other drugs, medicaments and biological substances
CPT/HCPCS: 36415; 71045; 74176; 80048; 80053; 83605; 83690; 83735; 84100; 84439; 84443; 85025; 86850; 86900; 86901; 86920; 87040; 87071; 87075; 87186; 87205; 87493; 93005; 96365; 96366; 96367; J0360; J0610; J1170; J1940; J2020; J2185; J2248; J2405; J2543; J3475; J3480; J7030; P9016; Q0163; 99285-25

== ENCOUNTER 2019-04-12 20:01 | Inpatient (IN) | payer MEDICARE ==
[~2019-04-12] VITALS: Ht 162.6 cm; Wt 54.6 kg
[~2019-04-12 20:01] MED LIST changes: -DULO30CA43 PO; +DULO30CA44 PO
[2019-04-12] MEDS ORDERED: IV NORMAL SALINE 1000ML BAG 1,000 ML IV ONE (20:45)
[2019-04-12] MEDS ORDERED: ONDANSETRON PF 4 MG/2 ML VIAL. IV ONE (20:45)
[2019-04-12 21:01] LABS: BASO % 0 % (0-3); EOS # 0.2 x10^3/uL (0.0-0.7); EOS % 3 % (0-3); HEMATOCRIT 27.3 % (36.0-47.0); LYMPH % 14 % (24-48); MEAN CORPUSCULAR HEMOGLOBIN 28 pg (25-35); MEAN CORPUSCULAR HGB CONC 33 g/dL (31-37); MEAN CORPUSCULAR VOLUME 83 fL (79-100); MONO # 0.6 x10^3/uL (0.0-1.1); MONO % 9 % (0-9); NEUT # 5.1 x10^3/uL (1.8-7.7); NEUT % 74 % (31-73); PLATELET COUNT 385 x10^3/uL (140-400); RED BLOOD COUNT 3.27 x10^6/uL (3.50-5.40); RED CELL DISTRIBUTION WIDTH 19.1 % (11.5-14.5); WHITE BLOOD COUNT 6.9 x10^3/uL (4.0-11.0)
[2019-04-12] MEDS: HYDROmorphone 2 MG/ML VIAL IV/SQ PRN ×2 (21:06→22:12)
[2019-04-12 21:07] LABS: PROTHROMBIN TIME PATIENT 14.6 SEC (11.7-14.0)
[2019-04-12 21:11] LABS: ALBUMIN 1.9 g/dL (3.4-5.0); ALBUMIN/GLOBULIN RATIO 0.3 (1.0-1.7); CALCIUM 7.5 mg/dL (8.5-10.1); CREATININE 0.6 mg/dL (0.6-1.0); GFR 121.8; TOTAL BILIRUBIN 0.4 mg/dL (0.2-1.0); TOTAL PROTEIN 7.6 g/dL (6.4-8.2)
[2019-04-12 21:22] LABS: POTASSIUM 2.5 mmol/L (3.5-5.1)
[2019-04-12] MEDS ORDERED: PIPERACILLIN/TAZOBACTAM 3.375 GM in IV NORMAL SALINE 50ML 50 ML IV ONE (22:15)
[2019-04-12] MEDS ORDERED: IV NORMAL SALINE 1000ML BAG 1,000 ML IV SCH (22:15)
[2019-04-12] MEDS ORDERED: POTASSIUM CHLORIDE 10 MEQ TABLET.ER. PO ONE (23:00)
--- NOTE | 2019-04-12 23:03 | PHYS DOC ---
Past Medical History Past Medical History: Anxiety, Cancer, Diverticulitis, DVT, Hypertension, UTI, Other Additional Past Medical Histor: abd pain,septicemia,Vesicoenteric fistula,cervical CA,blood clot in [place] Past Surgical History: Hysterectomy, Other Additional Past Surgical Histo: bowel resection,ab fistula,BILAT HIP Alcohol Use: None Drug Use: None Adult General Chief Complaint Chief Complaint: NAUSEA/VOMITING/DIARRHA HPI HPI Patient is a 64 year old female who presents to the ED the chief complaint of fever and redness and pain in her abdomen. Patient states that she has history of enterocutaneous fistulas. Patient states in the last 1 month she has developed 5 areas of leakage in her abdominal wall. Patient states that today she developed a fever and increased redness in the abdominal wall. She states that she had a fever over 100 F today. Review of Systems Review of Systems Constitutional: Denies fever or chills [] HENT: Denies nasal congestion or sore throat [] Respiratory: Denies cough or shortness of breath [] Cardiovascular: Denies chest pain[] GI: Complains of abdominal pain[] : Denies dysuria or hematuria [] Musculoskeletal: Denies back pain or joint pain [] Neurologic: Denies headache, focal weakness or sensory changes [] All other systems were reviewed and found to be within normal limits, except as documented in this note. Current Medications Current Medications Current Medications Medications (Trade) Dose Ordered Sig/Alex Start Time Stop Time Status Last Admin Dose Admin Hydromorphone HCl (Dilaudid) 1 mg PRN Q2HR PRN 04/12/19 20:45 04/12/19 22:12 1 MG Ondansetron HCl (Zofran) 4 mg 1X ONCE 04/12/19 20:45 04/12/19 20:46 DC 04/12/19 21:02 4 MG Sodium Chloride 1,000 ml @ 1,000 mls/hr 1X ONCE 04/12/19 20:45 04/12/19 21:44 DC 04/12/19 20:56 1,000 MLS/HR Allergies Allergies Allergies Coded Allergies Type Severity Reaction Last Updated Verified Iodinated Contrast- Oral and IV Dye Allergy Severe Anaphylaxis 10/31/18 Yes vancomycin Allergy Severe Swelling 10/31/18 Yes adhesive tape Allergy Intermediate Rash 10/31/18 Yes silver Allergy Intermediate Rash, Tegaderm film, can have on abd but no where else 10/31/18 Yes codeine Adverse Reaction Severe Nausea and Vomiting 10/31/18 Yes Physical Exam Physical Exam Constitutional: Well developed, well nourished, no acute distress, non-toxic appearance. [] HENT: Normocephalic, atraumatic [] Neck: Normal range of motion, no tenderness, supple, no stridor. [] Cardiovascular:Heart rate regular rhythm [] Lungs & Thorax: Bilateral breath sounds clear to auscultation [] Abdomen: Discoloration in the abdominal wall with erythema and warmth.[] Extremities: No tenderness, ROM intact, no edema. [] Neurologic: Alert and oriented X 3 [] Current Patient Data Vital Signs Vital Signs Date Time Temp Pulse Resp B/P (MAP) Pulse Ox O2 Delivery O2 Flow Rate FiO2 04/12/19 21:06 16 97 Room Air 04/12/19 20:10 98.0 93 124/71 (88) 98.0 Lab Values Laboratory Tests Test 04/12/19 20:52 White Blood Count 6.9 x10^3/uL (4.0-11.0) Red Blood Count 3.27 x10^6/uL (3.50-5.40) L Hemoglobin 9.0 g/dL (12.0-15.5) L Hematocrit 27.3 % (36.0-47.0) L Mean Corpuscular Volume 83 fL (79-100) Mean Corpuscular Hemoglobin 28 pg (25-35) Mean Corpuscular Hemoglobin Concent 33 g/dL (31-37) Red Cell Distribution Width 19.1 % (11.5-14.5) H Platelet Count 385 x10^3/uL (140-400) Neutrophils (%) (Auto) 74 % (31-73) H Lymphocytes (%) (Auto) 14 % (24-48) L Monocytes (%) (Auto) 9 % (0-9) Eosinophils (%) (Auto) 3 % (0-3) Basophils (%) (Auto) 0 % (0-3) Neutrophils # (Auto) 5.1 x10^3/uL (1.8-7.7) Lymphocytes # (Auto) 1.0 x10^3/uL (1.0-4.8) Monocytes # (Auto) 0.6 x10^3/uL (0.0-1.1) Eosinophils # (Auto) 0.2 x10^3/uL (0.0-0.7) Basophils # (Auto) 0.0 x10^3/uL (0.0-0.2) Prothrombin Time 14.6 SEC (11.7-14.0) H Prothrombin Time INR 1.2 (0.8-1.1) H Sodium Level 144 mmol/L (136-145) Potassium Level 2.5 mmol/L (3.5-5.1) *L Chloride Level 107 mmol/L (98-107) Carbon Dioxide Level 26 mmol/L (21-32) Anion Gap 11 (6-14) Blood Urea Nitrogen 16 mg/dL (7-20) Creatinine 0.6 mg/dL (0.6-1.0) Estimated GFR (Cockcroft-Gault) 121.8 BUN/Creatinine Ratio 27 (6-20) H Glucose Level 79 mg/dL (70-99) Lactic Acid Level 0.9 mmol/L (0.4-2.0) Calcium Level 7.5 mg/dL (8.5-10.1) L Total Bilirubin 0.4 mg/dL (0.2-1.0) Aspartate Amino Transferase (AST) 17 U/L (15-37) Alanine Aminotransferase (ALT) 7 U/L (14-59) L Alkaline Phosphatase 85 U/L (46-116) Total Protein 7.6 g/dL (6.4-8.2) Albumin 1.9 g/dL (3.4-5.0) L Albumin/Globulin Ratio 0.3 (1.0-1.7) L Lipase 62 U/L (73-393) L Laboratory Tests 04/12/19 20:52 Laboratory Tests 04/12/19 20:52 EKG EKG [] Radiology/Procedures Radiology/Procedures [] Course & Med Decision Making Course & Med Decision Making Pertinent Labs reviewed. (See chart for details) Ordered labs, IV Dilaudid, IV Zofran. She states that she has an allergy to contrast dye both oral and IV. Patient will be admitted so she can get the prep for CT abdomen. IV antibiotics started in the ED. Labs show the patient has potassium of 2.6. Potassium is replaced in the ED. Discussed case with Dr. Cisneros who accepts admission. Patient started on Zosyn and Zyvox. Dragon Disclaimer Dragon Disclaimer This electronic medical record was generated, in whole or in part, using a voice recognition dictation system. Departure Departure Impression: Primary Impression: Abdominal wall cellulitis Additional Impressions: Hypokalemia Enterocutaneous fistula Disposition: ADMITTED INPATIENT Referrals: BENITA CISNEROS MD (PCP) Problem Qualifiers VANDA GALAN DO Apr 12, 2019 23:03
[2019-04-12 23:05] VITALS: BP 178/91
--- NOTE | 2019-04-12 23:45 | NUR ---
Admitted from ER via bed accompanied by staff with admission diagnosis of abdominal wall cellulitis and enterocutaneous fistula pt alert and oriented patient had right chestwall piccline pt abdominal area with redness and leakage patient stated just placing towel to catch the drainage stated Dr owens do nothing about it pt stated had history of mrsa years ago but every time she was tested she was always negative
--- NOTE | 2019-04-13 02:46 | NUR ---
pt refused consult to wound care
[2019-04-13 03:00] VITALS: BP 143/76
[2019-04-13] MEDS: ONDANSETRON PF 4 MG/2 ML VIAL. IV PRN ×2 (04:54→11:02)
--- NOTE | 2019-04-13 05:17 | NUR ---
called Dr Shima Cisneros for pain meds order pt can have dilaudid 2 mg IV every 4 hours for pain ,okay to draw bloodworks on PICC line to continue home meds with sips of water
[2019-04-13] MEDS ORDERED: ONDANSETRON ODT 4 MG TAB.RAPDIS. PO PRN (05:30)
[2019-04-13] MEDS ORDERED: ACETAMINOPHEN 325 MG TABLET. PO PRN (05:30)
[2019-04-13] MEDS ORDERED: HYDROmorphone 2 MG TABLET PO PRN (05:30)
[2019-04-13] MEDS ORDERED: LORazepam 0.5 MG TABLET PO PRN (05:30)
[2019-04-13] MEDS: HYDROmorphone 2 MG/ML VIAL IV PRN ×4 (05:41→22:03)
--- NOTE | 2019-04-13 06:16 | NUR ---
paged Roderick Mccray for consult talked to sumaya kate relay message
--- NOTE | 2019-04-13 06:19 | NUR ---
returned paged informed of the consult
[2019-04-13 07:00] VITALS: BP 98/67
--- NOTE | 2019-04-13 08:17 | PDOC ---
Infectious Disease Note Vital Sign Vital Signs Vital Signs Date Time Temp Pulse Resp B/P (MAP) Pulse Ox O2 Delivery O2 Flow Rate FiO2 04/13/19 07:22 16 Room Air 04/13/19 05:41 92 04/13/19 05:04 98.6 98.6 04/13/19 03:00 119 143/76 (98) Labs Lab Laboratory Tests Test 04/12/19 20:52 White Blood Count 6.9 x10^3/uL (4.0-11.0) Red Blood Count 3.27 x10^6/uL (3.50-5.40) Hemoglobin 9.0 g/dL (12.0-15.5) Hematocrit 27.3 % (36.0-47.0) Mean Corpuscular Volume 83 fL (79-100) Mean Corpuscular Hemoglobin 28 pg (25-35) Mean Corpuscular Hemoglobin Concent 33 g/dL (31-37) Red Cell Distribution Width 19.1 % (11.5-14.5) Platelet Count 385 x10^3/uL (140-400) Neutrophils (%) (Auto) 74 % (31-73) Lymphocytes (%) (Auto) 14 % (24-48) Monocytes (%) (Auto) 9 % (0-9) Eosinophils (%) (Auto) 3 % (0-3) Basophils (%) (Auto) 0 % (0-3) Neutrophils # (Auto) 5.1 x10^3/uL (1.8-7.7) Lymphocytes # (Auto) 1.0 x10^3/uL (1.0-4.8) Monocytes # (Auto) 0.6 x10^3/uL (0.0-1.1) Eosinophils # (Auto) 0.2 x10^3/uL (0.0-0.7) Basophils # (Auto) 0.0 x10^3/uL (0.0-0.2) Prothrombin Time 14.6 SEC (11.7-14.0) Prothromb Time International Ratio 1.2 (0.8-1.1) Sodium Level 144 mmol/L (136-145) Potassium Level 2.5 mmol/L (3.5-5.1) Chloride Level 107 mmol/L (98-107) Carbon Dioxide Level 26 mmol/L (21-32) Anion Gap 11 (6-14) Blood Urea Nitrogen 16 mg/dL (7-20) Creatinine 0.6 mg/dL (0.6-1.0) Estimated GFR (Cockcroft-Gault) 121.8 BUN/Creatinine Ratio 27 (6-20) Glucose Level 79 mg/dL (70-99) Lactic Acid Level 0.9 mmol/L (0.4-2.0) Calcium Level 7.5 mg/dL (8.5-10.1) Total Bilirubin 0.4 mg/dL (0.2-1.0) Aspartate Amino Transf (AST/SGOT) 17 U/L (15-37) Alanine Aminotransferase (ALT/SGPT) 7 U/L (14-59) Alkaline Phosphatase 85 U/L (46-116) Total Protein 7.6 g/dL (6.4-8.2) Albumin 1.9 g/dL (3.4-5.0) Albumin/Globulin Ratio 0.3 (1.0-1.7) Lipase 62 U/L (73-393) Objective Assessment Fever Weakness Abd pain Ec fisula with increased drainage Plan Plan of Care Cont zyvox Dose Dapto times one Add Meropenem and Micafungin F/u blood cult and labs Await GI eval Thank you # [id number] ABBY MOTT MD Apr 13, 2019 08:17
[2019-04-13] MEDS ORDERED: DAPTOmycin (GENERIC) IVPB 280 MG in IV NORMAL SALINE 50ML 50 ML IV ONE (08:30)
[2019-04-13] MEDS: SERTRALINE 50 MG TABLET. PO SCH (08:52)
[2019-04-13] MEDS: PANTOPRAZOLE 40 MG TABLET.DR. PO SCH (08:52)
--- NOTE | 2019-04-13 08:57 | NUR ---
CLARICE following for discharge planning. Chart reviewed, discussed with RN. Pt is from home. Currently NPO and bedrest, zyvox, meropenem and micafungin. Awaiting GI eval, as well as PT?OT. CLARICE will continue to follow. Addendum: 04/13/19 at 1203 by DEYANIRA ONEIL Per Destinee (CLARICE), pt is current with [facility] and [facility] for TPN. CLARICE will continue to follow.
[2019-04-13] MEDS ORDERED: amLODIPine BESYLATE 5 MG TABLET PO SCH (09:00)
[2019-04-13] MEDS ORDERED: FLU VAX QS 2019-20 (36MOS+)/PF 0.5 ML SYRINGE. VAX IM ONE (09:00)
--- NOTE | 2019-04-13 09:04 | CONS ---
DATE OF CONSULTATION: 04/13/2019 LOCATION: The patient's room is 428. REQUESTING PHYSICIAN: Roderick Cisneros MD REASON FOR CONSULTATION: Fever and cutaneous fistula. HISTORY OF PRESENT ILLNESS: The patient is a 64-year-old female with a history of ongoing enterocutaneous fistula, has had multiple surgeries and multiple infections associated with this as well as line infections related to her chronic TPN use. She does have a history of Enterobacter, Enterococcus, MRSA, Judi glabrata fungemia and Staph warneri amongst other infections including Pseudomonas bacteremia. She did about a month ago, she developed a large swelling on the right mid lower quadrant area at pressure on her and made her feel uncomfortable. Then ruptured and drained a lot of fluid she states and she was seen in the outpatient setting, placed on doxycycline and since that time had been doing fairly well, although she would develop periodic fevers at least once a week or so without any increased drainage. Yesterday; however, she developed fevers, she developed weakness as well as chills, some abdominal discomfort and nodes were small about 5 small areas amongst her fistulous area that had some new drainage. She has a little bit of pain, a little bit of nausea and presented to [facility]. She did not have an elevated white blood cell count, but she did develop a temperature as high as 100.3. No imaging was obtained. She was placed on Zosyn x 1 dose and every 12 hours linezolid. Currently, she is sitting upright in bed. She is feeling better. She denies any headaches, no sinus issues, no ear problems, no sore throat or cough. Her chest PICC line is without signs of any complications. She denies any rashes, no falls or trauma. PAST MEDICAL HISTORY: Positive for anxiety, cancer, diverticulitis, hypertension, previous UTIs, vesicoenteric fistula, enterocutaneous fistula, chronic TPN, history of line infections with MRSA, Judi glabrata, Klebsiella pneumoniae, Staph warneri, Cupriavidus pauculus, Enterobacter, Enterococcus faecium, penicillin-resistant Enterococcus faecalis, Pseudomonas, multiple urinary tract infections, anemia of chronic disease, depression, Judi, esophagitis, history of DVT, diverticulosis, peptic ulcer disease, PTSD, angina and esophageal varices. PAST SURGICAL HISTORY: Positive for multiple abdominal surgeries including bowel resection, hysterectomy and cholecystectomy. Appendectomy, tonsillectomy, jejunostomy, reversal ileostomy, reversal multiple line placements. REVIEW OF SYSTEMS: Otherwise negative. ALLERGIES: LISTED VANCOMYCIN CAUSED SWELLING, ORAL AND IV CONTRAST, ADHESIVE TAPE, CODEINE AND SILVER. SOCIAL HISTORY: No tobacco or illicit drugs. She lives at home. FAMILY HISTORY: Noncontributory. CURRENT MEDICATIONS: Again, she received a dose of Zosyn. She is on Zyvox 600 every 12 hours, Tylenol, Norvasc, Dilaudid, Ativan, Zofran, Protonix, Ambien and Zoloft. PHYSICAL EXAMINATION: VITAL SIGNS: T-max 100.3, currently 98.6, respiratory rate 16, blood pressure 143/76 and satting 92% on room air. CONSTITUTIONAL: She is pleasant. She is cooperative. She is in no acute distress. She is sitting upright in bed. HEENT: Pupils are equal and reactive. She has normal conjunctivae. Oral cavity, pharynx is clear without signs of any thrush. NECK: Supple, no JVD. LUNGS: Clear to auscultation bilaterally. HEART: S1, S2. Right-sided chest PICC line without signs of any complications. There is no streaking or swelling. ABDOMEN: Enterocutaneous fistula with a small hole. She has had some minimal excoriation. She has some cobblestoning of the area around it. There are some small areas about the area with pinpoint openings, but there is no gross pus or fluid collection. No gross fluctuance. EXTREMITIES: Without clubbing or cyanosis. No gross edema. SKIN: Warm to touch without signs of rash. NEUROLOGIC: She is alert and oriented and nonfocal. PSYCHIATRIC: Affect is pleasant. LABORATORY DATA: White count was 6.9, hemoglobin 9, platelets of 383, neutrophils 74 and lymphs are 14. Creatinine 0.6, AST 17, ALT 7, alkaline phosphatase 85 and glucose 79. There are no radiological studies. IMPRESSION: 1. Fever. 2. Weakness. 3. Abdominal pain. 4. Enterocutaneous fistula with increased drainage. RECOMMENDATIONS: For now, continue the Zyvox, with dose daptomycin x 1. We will add meropenem and micafungin. Follow up on blood cultures. Currently, there does not appear to be any fluid culture. Follow up on labs. Await GI evaluation. Thank you for allowing me to participate in the patient's care. If you have any questions, please do not hesitate to contact me. ABBY MOTT MD DR: DUNCAN/jd JOB#: [id number] / [id number] RODERICK Nascimento MD
--- NOTE | 2019-04-13 09:42 | PDOC2 ---
GI CONSULT Reason For Consult: EC fistula HPI: HPI: Pleasant 64 y/o female who we have seen in the past. Admitted through ER w/ fever and increase in abd pain and fistulae drainage. H/o complicated diverticular disease w/ enterocutaneous fistulas w/ numerous (unsuccessful) surgeries in the past (at [facility], , [facility]). Intermittent n/v, chronic abd pain, and fluctuating fistulae drainage (in past suspected related to intermittent obstruction). Has had symptoms off and on for 3-4 weeks - fever/chills, drainage (says draining from 5 areas now), and pain. Occasional mushy stool but nothing out of the ordinary. Some nausea w/o vomiting. Says Dr. Cisneros prescribed some doxycycline that helped symptoms initially. On TPN, Dilaudid PRN, and PPI at home. EGD pathology (Dr. Arellano) 09/2017 - ana esophagitis (negative for Wallace's). EGD (Dr. Ovalle) 10/2018: suspected pill-induced ulcers in proximal esophagus, esophageal candidiasis (confirmed w/ biopsy, treated w/ Diflucan), mild reflux, normal stomach, normal duodenum. Records indicate colonoscopy in 2011 w/ diverticulosis and previous resection. S/p cholecystectomy (does not recall stones). H/o elevated LFTs, MRCP showed "kink" in CBD. PMH: PMH: HTN, cervical cancer (w/ radium implants), UE DVT, anxiety, sepsis, UTI, esophagitis and gastritis, ?PUD, SBO, diverticulosis, CKD, hypothyroidism, fistulas as above, SBO, appendectomy, cholecystectomy, hysterectomy, bilateral hip pinning, multiple laparotomies, I&D superficial abdominal wall/skin abscess, PICC placement, G tube placement/removal, colon resection FH: Family History: No pertinent hx Social History: Smoke: No ALCOHOL: none Drugs: None ROS: GEN: +fever/chills HEENT: Denies blurred vision, sore throat CV: Denies chest pain RESP: Denies shortness of air, cough GI: Per HPI : Denies hematuria, dysuria ENDO: Denies weight changes NEURO: Denies confusion, dizziness MSK: Denies weakness, joint pain/swelling SKIN: Denies jaundice, pruritus Vitals: Vitals: Vital Signs Date Time Temp Pulse Resp B/P (MAP) Pulse Ox O2 Delivery O2 Flow Rate FiO2 04/13/19 08:53 91 98/67 04/13/19 07:22 16 Room Air 04/13/19 07:00 97.9 98 97.9 Labs: Labs: Laboratory Tests Test 04/12/19 20:52 White Blood Count 6.9 x10^3/uL (4.0-11.0) Red Blood Count 3.27 x10^6/uL (3.50-5.40) Hemoglobin 9.0 g/dL (12.0-15.5) Hematocrit 27.3 % (36.0-47.0) Mean Corpuscular Volume 83 fL (79-100) Mean Corpuscular Hemoglobin 28 pg (25-35) Mean Corpuscular Hemoglobin Concent 33 g/dL (31-37) Red Cell Distribution Width 19.1 % (11.5-14.5) Platelet Count 385 x10^3/uL (140-400) Neutrophils (%) (Auto) 74 % (31-73) Lymphocytes (%) (Auto) 14 % (24-48) Monocytes (%) (Auto) 9 % (0-9) Eosinophils (%) (Auto) 3 % (0-3) Basophils (%) (Auto) 0 % (0-3) Neutrophils # (Auto) 5.1 x10^3/uL (1.8-7.7) Lymphocytes # (Auto) 1.0 x10^3/uL (1.0-4.8) Monocytes # (Auto) 0.6 x10^3/uL (0.0-1.1) Eosinophils # (Auto) 0.2 x10^3/uL (0.0-0.7) Basophils # (Auto) 0.0 x10^3/uL (0.0-0.2) Prothrombin Time 14.6 SEC (11.7-14.0) Prothromb Time International Ratio 1.2 (0.8-1.1) Sodium Level 144 mmol/L (136-145) Potassium Level 2.5 mmol/L (3.5-5.1) Chloride Level 107 mmol/L (98-107) Carbon Dioxide Level 26 mmol/L (21-32) Anion Gap 11 (6-14) Blood Urea Nitrogen 16 mg/dL (7-20) Creatinine 0.6 mg/dL (0.6-1.0) Estimated GFR (Cockcroft-Gault) 121.8 BUN/Creatinine Ratio 27 (6-20) Glucose Level 79 mg/dL (70-99) Lactic Acid Level 0.9 mmol/L (0.4-2.0) Calcium Level 7.5 mg/dL (8.5-10.1) Total Bilirubin 0.4 mg/dL (0.2-1.0) Aspartate Amino Transf (AST/SGOT) 17 U/L (15-37) Alanine Aminotransferase (ALT/SGPT) 7 U/L (14-59) Alkaline Phosphatase 85 U/L (46-116) Total Protein 7.6 g/dL (6.4-8.2) Albumin 1.9 g/dL (3.4-5.0) Albumin/Globulin Ratio 0.3 (1.0-1.7) Lipase 62 U/L (73-393) BLOOD CULTURE Final GRAM NEGATIVE RODS IN BOTH BOTTLES OF A SINGLE SET COLLECTED. Allergies: Coded Allergies: Iodinated Contrast- Oral and IV Dye (Verified Allergy, Severe, Anap hylaxis, 10/31/18) PT HAS BEEN PREMEDICATED BEFORE WITH NO PROBLEMS, 11-27-15. vancomycin (Verified Allergy, Severe, Swelling, 10/31/18) adhesive tape (Verified Allergy, Intermediate, Rash, 10/31/18) silver (Verified Allergy, Intermediate, Rash, Tegaderm film, can have on abd but no where else, 10/31/18) codeine (Verified Adverse Reaction, Severe, Nausea and Vomiting, 10/31/18) Medications: Current Medications Medications (Trade) Dose Ordered Sig/Alex Route PRN Reason Start Time Stop Time Status Last Admin Dose Admin Hydromorphone HCl (Dilaudid) 1 mg PRN Q2HR PRN IV/SQ PAIN GREATER THAN 08/2104/12/19 20:45 04/13/19 08:11 DC 04/12/19 22:12 Ondansetron HCl (Zofran) 4 mg 1X ONCE IV 04/12/19 20:45 04/12/19 20:46 DC 04/12/19 21:02 Sodium Chloride 1,000 ml @ 1,000 mls/hr 1X ONCE IV 04/12/19 20:45 04/12/19 21:44 DC 04/12/19 20:56 Piperacillin Sod/ Tazobactam Sod 3.375 gm/Sodium Chloride 50 ml @ 100 mls/hr 1X ONCE IV 04/12/19 22:15 04/12/19 22:44 DC 04/12/19 22:30 Ondansetron HCl (Zofran) 4 mg PRN Q8HRS PRN IV NAUSEA/VOMITING 04/12/19 22:15 04/13/19 22:14 04/13/19 04:54 Sodium Chloride 1,000 ml @ 100 mls/hr Q10H IV 04/12/19 22:15 04/13/19 08:14 DC 04/12/19 23:23 Linezolid/Dextrose 300 ml @ 300 mls/hr 1X ONCE IV 04/12/19 22:30 04/12/19 23:29 DC 04/12/19 23:24 Potassium Chloride (Klor-Con) 60 meq 1X ONCE PO 04/12/19 23:00 04/12/19 23:01 DC 04/12/19 23:29 Hydromorphone HCl (Dilaudid) 2 mg PRN Q4HRS PRN IV PAIN 04/13/19 05:15 04/13/19 05:41 Sertraline HCl (Zoloft) 50 mg DAILY PO 04/13/19 09:00 04/13/19 08:52 Pantoprazole Sodium (Protonix) 40 mg DAILYAC PO 04/13/19 07:30 04/13/19 08:52 Daptomycin 280 mg/ Sodium Chloride 50 ml @ 100 mls/hr ONCE ONCE IV 04/13/19 08:30 04/13/19 08:59 DC 04/13/19 08:48 Imaging: Imaging: - PE: GEN: NAD HEENT: Atraumatic, PERRL LUNGS: CTAB HEART: RRR ABD/SKIN: chronic fistulae - she expresses milky/yellowish material from several areas EXTREMITY: No edema NEURO/PSYCH: A & O 3 A/P: A/P: Fever, increased fistuale drainage, abd pain GNR bacteremia H/o diverticular disease w/ EC fistuale and many surgeries H/o GERD CRC screen - UTD Chronic anemia Hypokalemia S/p cholecystectomy -- Atbx per ID. Other per Dr. Ovalle. MIESHA RICO Apr 13, 2019 09:42
[2019-04-13] MEDS: MEROPENEM 500 MG in IV NORMAL SALINE 50ML 50 ML IV SCH ×3 (09:45→22:02)
[2019-04-13] MEDS: MICAFUNGIN 100 MG in IV DEXTROSE 5% 100ML 100 ML IV SCH (10:46)
[2019-04-13 11:00] VITALS: BP 117/68
[2019-04-13] MEDS ORDERED: ONDANSETRON PF 4 MG/2 ML VIAL. IVP ONE (11:00)
[2019-04-13] MEDS ORDERED: POTASSIUM CL 20MEQ D5-0.45NACL 1,000 ML IV SCH (12:00)
--- NOTE | 2019-04-13 12:15 | PDOC ---
Provider Note Provider Note history and physical dictated # [id number] BENITA LUTZ MD Apr 13, 2019 12:15
--- NOTE | 2019-04-13 13:03 | NUR ---
Patient states would like to wait until discharge to receive her flu shot.
--- NOTE | 2019-04-13 13:25 | HP ---
ADMIT DATE: 04/13/2019 LOCATION: She is in room #428. HISTORY OF PRESENT ILLNESS: The patient is a 64-year-old -Cypriot female with history of enterocutaneous fistula and enterovesical fistula maintained on home total parenteral nutrition, who was admitted to [facility] through the Emergency Room on 04/12/2019 with fever and chills. She said her temperature went up to 102 degrees with some chills. She denied any cough or dysuria. She was seen in the Emergency Room and was started on IV Zyvox and Zosyn and seen by Dr. Almanza in consultation. It turns out that her blood cultures are positive for gram-negative rods and so he ordered a single dose of IV daptomycin and switched her antibiotics to Zyvox and meropenem and also ordered micafungin. She feels better today. In addition, her potassium was low at 2.5 and she was given a 60 mg of oral potassium in the Emergency Room. Her magnesium level was not done. She had her labs done every 2 weeks. Her magnesium and potassium levels have been low despite increasing the potassium and magnesium in her TPN at home. She is admitted there for further evaluation of Gram-negative keisha bacteremia and sepsis. ALLERGIES AND INTOLERANCES: Include IV CONTRAST, ORAL IODINE, ADHESIVE TAPE, CODEINE, SILVER, and VANCOMYCIN. MEDICATIONS: Include Dilaudid 1-2 mg p.o. q.i.d. p.r.n., lidocaine 5% topical, Zinc oxide 20% topical b.i.d. for her abdominal wall and she also is on lorazepam 0.5 mg p.o. every 6 hours p.r.n. for anxiety, Protonix 40 mg every day, sertraline 50 mg every day, Ambien 5 mg at bedtime p.r.n., Tylenol 650 mg every 4 hours p.r.n., Zofran 4 mg p.o. every 6 hours p.r.n., and amlodipine 5 mg every day. PAST MEDICAL HISTORY: Significant for the enterocutaneous fistula and also enterovesical fistula. She has a PICC line for home total parenteral nutrition. She has anemia of chronic disease and hypertension, multiple surgical procedures to repair her enterocutaneous fistula, all of which have failed. She has a history of esophagitis, gastritis in 2011, peptic ulcer in the past, diverticulosis, depression, reflux esophagitis, recurrent sepsis secondary to her PICC line and hysterectomy in the past and bilateral hip surgeries in the past. SOCIAL HISTORY: She does not drink alcohol nor does she smoke cigarettes. She receives home TPN. FAMILY HISTORY: Noncontributory. REVIEW OF SYSTEMS: GENERAL: She has had fever and chills. CARDIOVASCULAR: No chest pain. PULMONARY: No cough or shortness of breath. GASTROINTESTINAL: No constipation. ENDOCRINE: She does not have diabetes mellitus. SKIN: She has got enterocutaneous fistula. Rest of review of systems is negative except as stated in history of present illness. PHYSICAL EXAMINATION: VITAL SIGNS: Temperature is 97.9 degrees, pulse 91, respiratory rate 16, blood pressure 98/67, and oxygen saturation 98% on room air. HEENT: Eyes: Gaze is conjugate. Mouth: Tongue is midline. NECK: There is no cervical lymphadenopathy or thyroid enlargement. HEART: Reveals an S1, S2. There is no S3 or murmur. LUNGS: Clear. ABDOMEN: Soft. She has got excoriation, which is chronic due to the enterocutaneous fistula and the contents of the drain. She has got an area of the soft fullness in the abdominal wall. She got a PICC line in the right side. There is no redness. A PICC line is in the right side by her clavicle. EXTREMITIES: Lower extremities with 1+ edema in her feet. SKIN: No rashes. NEUROLOGIC: She is coherent with no focal weakness in arms or legs. REVIEW OF LABORATORY DATA: White count 6.9, hemoglobin 9, platelet count 85,000, 74 polys and 14 lymphocytes with INR of 1.2. Sodium 144, potassium 2.5, chloride 107, total CO2 was 26, BUN 16, and creatinine 0.6. Lactic acid was 0.9, calcium was 7.5. Liver function tests were normal. Albumin was 1.9, lipase was 62. I do not see a chest x-ray here. ASSESSMENT: 1. Sepsis. 2. Gram-negative keisha bacteremia. The most likely site will be the PICC line. 3. Enterocutaneous fistula. 4. Enterovesical fistula. Urine cultures will not be too helpful because of an enterovesical fistula. 5. Severe hypokalemia. 6. Hypertension. 7. Anemia of chronic disease. PLAN: At this time is to continue with the IV antibiotics per Infectious Disease, which currently are one single dose of daptomycin, micafungin, meropenem, and Zyvox. Wait for the blood culture results. She had a chest x-ray and EKG. PICC line will be changed tomorrow. We will culture the tip of the PICC line. Discontinue amlodipine as her blood pressure is running low. We will get a magnesium level now and again tomorrow morning. We gave her 40 mEq of potassium chloride IV today. I spoke with the pharmacist who will order TPN with 60 mEq of potassium chloride and 15 mg of magnesium sulfate and she might need some additional potassium and magnesium IV. I spoke with Dr. Almanza who is going to speak with Interventional Radiology to not remove the PICC line completely, but to exchange it through a guidewire because she showed us left side for a PICC that she has and she needs home TPN. It does not look like they did blood cultures on her in the Emergency Room either. Again, she has got gram-negative rods in her blood cultures and apparently they were done. We will start her on TPN as soon as available and I will change her IV fluids one-half normal saline with dextrose and potassium chloride. BENITA LUTZ MD DR: [id number]/jd JOB#: [id number] / [id number]
--- NOTE | 2019-04-13 13:27 | RAD ---
CHEST AP ONLY History: Fever Comparison: January 11, 2019 Findings: No consolidation or pleural effusion. Normal heart size. Unchanged right-sided central line. No pneumothorax. Impression: 1. No acute cardiopulmonary process. Electronically signed by: Roberto Salazar DO (04/13/2019 1:24 PM) [facility]
[2019-04-13] MEDS: ONDANSETRON PF 4 MG/2 ML VIAL. IVP PRN ×2 (13:45→22:02)
--- NOTE | 2019-04-13 14:18 | EKG ---
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
[2019-04-13] MEDS: TPN PER PHARMACY MC PRN (14:38)
--- NOTE | 2019-04-13 14:42 | NUR ---
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 TPN B:Pertinent PMH: Long-term TPN Height: 5 feet, 4 inches Weight: 46.9 kg Current diet: Regular LABS: Sodium: 144 Potassium: 2.5 Chloride: 107 Calcium: 7.5 Corrected Calcium: 9.18 Magnesium: 0.8 CO2: 26 SCr: 0.6 Glucose: 79 Albumin: 1.9 AST: 17 ALT: 7 TPN FORMULA: TPN TYPE: Central Continuous AMINO ACIDS: 90 gm DEXTROSE: 285 gm LIPIDS: 35 gm SODIUM CHLORIDE: 200 mEq POTASSIUM CHLORIDE: 60 mEq POTASSIUM PHOSPHATE: 13.6 mmol MAGNESIUM: 15 mEq CALCIUM: 10 mEq MULTIPLE VITAMIN: 10 ml TRACE ELEMENTS: 1 ml TPN PLAN: TPN ordered per last admit with adjustments as per Dr Cisneros R: Continue TPN Will monitor electrolytes, glucose, and tolerance to TPN. Sandra Muñiz [facility], 04/13/19 [id number]
[2019-04-13] MEDS: POTASSIUM CHL 20MEQ PREMIX 50 ML IV SCH ×2 (14:43→17:03)
[2019-04-13 15:00] VITALS: BP 126/76
[2019-04-13 19:25] VITALS: BP 165/87
[2019-04-13] MEDS ORDERED: AMINO ACID IV SCH ×10 (22:00)
[2019-04-13] MEDS ORDERED: DEXTROSE 70% IV SCH ×10 (22:00)
[2019-04-13] MEDS ORDERED: TOTAL PARENTERAL NUTRITION IV SCH ×10 (22:00)
[2019-04-13] MEDS ORDERED: [UNRECOGNIZED DRUG - OTHER] IV SCH ×10 (22:00)
[2019-04-13] MEDS: ZOLPIDEM 5 MG TABLET. PO PRN (23:49)
[2019-04-13 23:58] VITALS: BP 175/83
[2019-04-14] VITALS (12 sets, daily range): BP systolic 132–189; BP diastolic 74–99
[2019-04-14] MEDS: MEROPENEM 500 MG in IV NORMAL SALINE 50ML 50 ML IV SCH ×4 (01:11→17:10)
[2019-04-14] MEDS: HYDROmorphone 2 MG/ML VIAL IV PRN ×4 (06:45→21:27)
[2019-04-14] MEDS: PANTOPRAZOLE 40 MG TABLET.DR. PO SCH (06:45)
[2019-04-14 07:05] LABS: BASO # 0.1 x10^3/uL (0.0-0.2); BASO % 1 % (0-3); EOS # 0.1 x10^3/uL (0.0-0.7); EOS % 2 % (0-3); HEMATOCRIT 25.9 % (36.0-47.0); HEMOGLOBIN 8.5 g/dL (12.0-15.5); LYMPH # 0.8 x10^3/uL (1.0-4.8); LYMPH % 14 % (24-48); MEAN CORPUSCULAR HEMOGLOBIN 28 pg (25-35); MEAN CORPUSCULAR HGB CONC 33 g/dL (31-37); MEAN CORPUSCULAR VOLUME 84 fL (79-100); MONO # 0.5 x10^3/uL (0.0-1.1); MONO % 9 % (0-9); NEUT # 4.3 x10^3/uL (1.8-7.7); NEUT % 74 % (31-73); PLATELET COUNT 323 x10^3/uL (140-400); RED CELL DISTRIBUTION WIDTH 19.4 % (11.5-14.5); WHITE BLOOD COUNT 5.7 x10^3/uL (4.0-11.0)
[2019-04-14 07:20] LABS: CALCIUM 7.4 mg/dL (8.5-10.1); CREATININE 0.5 mg/dL (0.6-1.0); GFR 150.3; POTASSIUM 3.9 mmol/L (3.5-5.1)
[2019-04-14] MEDS: SERTRALINE 50 MG TABLET. PO SCH (08:36)
[2019-04-14] MEDS: MICAFUNGIN 100 MG in IV DEXTROSE 5% 100ML 100 ML IV SCH (08:37)
[2019-04-14] MEDS ORDERED: LIDOCAINE 1%/EPI 1:100,000 20 ML VIAL. ONE (09:50)
[2019-04-14] MEDS: ONDANSETRON PF 4 MG/2 ML VIAL. IVP PRN ×2 (10:17→21:27)
[2019-04-14] MEDS ORDERED: MIDAZOLAM HCL/PF 2 MG/2 ML VIAL. ONE (10:28)
[2019-04-14] MEDS ORDERED: fentaNYL PF VIAL 100 MCG/2 ML VIAL ONE (10:29)
--- NOTE | 2019-04-14 10:41 | NUR ---
SS following up with discharge planning. SS reviewed pt chart. Pt is from home and has services with [facility], ; fax [phone] and [facility] for [facility], ; fax [phone]. Pt is currently on room air. PT/OT ordered. SS will continue to follow for discharge planning.
[2019-04-14] MEDS ORDERED: MIDAZOLAM HCL/PF 2 MG/2 ML VIAL. IV ONE (11:00)
[2019-04-14] MEDS ORDERED: fentaNYL PF VIAL 100 MCG/2 ML VIAL IV ONE (11:00)
[2019-04-14] MEDS ORDERED: LIDOCAINE 1%/EPI 1:100,000 20 ML VIAL. INJ ONE (11:00)
--- NOTE | 2019-04-14 11:08 | PDOC ---
MODERATE SEDATION ASSESSMENT RISKS/ALTERNATIVES Risks/Alternatives Risks and alternatives of this type of sedation and procedure discussed with: RISK/ALTERNATIVES: Patient H & P ON CHART H & P H & P on chart and reviewed for co-morbid conditions and appropriate labs. H&P ON CHART: Yes STATUS PREG STATUS ASSESSED: Yes MEDS/ALLERGIES REVIEWED Meds/Allergies Reviewed Medications and Allergies including time and route of recently administered narcotics and sedatives. MEDS/ALLERGIES REVIEWED: Yes ASA RATING ASA RATING: II AIRWAY ASSESSMENT Airway Assessment Airway patency, oral function limitations, presence of caps, crowns, dentures, partials, and ability to extend neck assessed. AIRWAY ASSESSMENT: Yes MALLAMPATI SCORE MALLAMPATI SCORE: II PRE-SEDATION ASSESSMENT PRE-SEDATION ASSESSMENT: Yes RODO BOYD MD Apr 14, 2019 11:08
--- NOTE | 2019-04-14 11:10 | PDOC1 ---
History and Physical Date of Procedure Date of Admission Apr 12, 2019 at 22:00 History of Present Illness Reason for Visit adult with limited venous access and infected tunnelled central line Past Medical History Past Medical History see nursing pre-op assessment Current Medications Current Medications Current Medications Hydromorphone HCl (Dilaudid) 1 mg PRN Q2HR PRN IV/SQ PAIN GREATER THAN 3/10 Last administered on 04/12/19at 22:12; Start 04/12/19 at 20:45; Stop 04/13/19 at 08:11; Status DC Ondansetron HCl (Zofran) 4 mg 1X ONCE IV Last administered on 04/12/19at 21:02; Start 04/12/19 at 20:45; Stop 04/12/19 at 20:46; Status DC Sodium Chloride 1,000 ml @ 1,000 mls/hr 1X ONCE IV Last administered on 04/12/19at 20:56; Start 04/12/19 at 20:45; Stop 04/12/19 at 21:44; Status DC Piperacillin Sod/ Tazobactam Sod 3.375 gm/Sodium Chloride 50 ml @ 100 mls/hr 1X ONCE IV Last administered on 04/12/19at 22:30; Start 04/12/19 at 22:15; Stop 04/12/19 at 22:44; Status DC Linezolid/Dextrose 300 ml @ 300 mls/hr Q12HR IV Last administered on 04/14/19at 10:09; Start 04/13/19 at 09:00 Ondansetron HCl (Zofran) 4 mg PRN Q8HRS PRN IV NAUSEA/VOMITING Last administered on 04/13/19at 11:02; Start 04/12/19 at 22:15; Stop 04/13/19 at 22:14; Status DC Sodium Chloride 1,000 ml @ 100 mls/hr Q10H IV Last administered on 04/12/19at 23:23; Start 04/12/19 at 22:15; Stop 04/13/19 at 08:14; Status DC Linezolid/Dextrose 300 ml @ 300 mls/hr 1X ONCE IV Last administered on 04/12at 23:24; Start 04/12/19 at 22:30; Stop 04/12/19 at 23:29; Status DC Potassium Chloride (Klor-Con) 60 meq 1X ONCE PO Last administered on 04/12/19at 23:29; Start 04/12/19 at 23:00; Stop 04/12/19 at 23:01; Status DC Influenza Virus Vaccine Quadrival (Afluria Quad 2019-20 (3yr Up) Syringe) 0.5 ml ONCE ONCE VAX IM ; Start 04/13/19 at 09:00; Stop 04/13/19 at 09:01; Status DC Hydromorphone HCl (Dilaudid) 2 mg PRN Q4HRS PRN IV PAIN Last administered on 04/14/19at 06:45; Start 04/13/19 at 05:15 Amlodipine Besylate (Norvasc) 5 mg DAILY PO ; Start 04/13/19 at 09:00; Stop 04/13/19 at 12:07; Status DC Hydromorphone HCl (Dilaudid) 2 mg PRN QID PRN PO MODERATE - SEVERE PAIN; Start 04/13/19 at 05:30 Acetaminophen (Tylenol) 650 mg PRN Q6HRS PRN PO MILD PAIN / TEMP; Start 04/13/19 at 05:30 Sertraline HCl (Zoloft) 50 mg DAILY PO Last administered on 04/14/19at 08:36; Start 04/13/19 at 09:00 Lorazepam (Ativan) 0.5 mg PRN Q6HRS PRN PO ANXIETY; Start 04/13/19 at 05:30 Zolpidem Tartrate (Ambien) 5 mg PRN QHS PRN PO INSOMNIA Last administered on 04/13/19at 23:49; Start 04/13/19 at 05:30 Ondansetron HCl (Zofran Odt) 4 mg PRN Q8HRS PRN PO NAUSEA/VOMITING; Start 04/13/19 at 05:30 Pantoprazole Sodium (Protonix) 40 mg DAILYAC PO Last administered on 04/13/19at 08:52; Start 04/13/19 at 07:30 Meropenem 500 mg/ Sodium Chloride 50 ml @ 100 mls/hr Q6HRS IV Last administered on 04/14/19at 06:45; Start 04/13/19 at 08:30 Micafungin Sodium 100 mg/Dextrose 100 ml @ 100 mls/hr Q24H IV Last administered on 04/14/19at 08:37; Start 04/13/19 at 09:00 Daptomycin 280 mg/ Sodium Chloride 50 ml @ 100 mls/hr ONCE ONCE IV Last administered on 04/13/19at 08:48; Start 04/13/19 at 08:30; Stop 04/13/19 at 08:59; Status DC Ondansetron HCl (Zofran) 4 mg 1X ONCE IVP Last administered on 04/13/19at 11:00; Start 04/13/19 at 11:00; Stop 04/13/19 at 11:01; Status DC Potassium Chloride/Dextrose/ Sod Cl 1,000 ml @ 75 mls/hr [id number] IV Last administered on 04/13/19at 12:27; Start 04/13/19 at 12:00; Stop 04/13/19 at 21:59; Status DC Potassium Chloride/Water 50 ml @ 25 mls/hr Q2H IV Last administered on 04/13/19at 17:03; Start 04/13/19 at 13:00; Stop 04/13/19 at 16:59; Status DC Ondansetron HCl (Zofran) 4 mg PRN Q6HRS PRN IVP NAUSEA/VOMITING Last administered on 04/14/19at 10:17; Start 04/13/19 at 12:00 Info (Tpn Per Pharmacy) 1 each PRN DAILY PRN MC SEE COMMENTS Last administered on 04/13/19at 14:38; Start 04/13/19 at 13:00 Sodium Chloride 200 meq/Potassium Chloride 60 meq/ Potassium Phosphate 13.6 mmol/Magnesium Sulfate 15 meq/ Calcium Gluconate 10 meq/ Multivitamins 10 ml/Chromium/ Copper/Manganese/ Seleni/Zn 1 ml/ Total Parenteral Nutrition/Amino Acids/Dextrose/ Fat Emulsion Intravenous 1,920 ml @ 80 mls/hr TPN CONT IV Last administered on 04/13/19at 22:04; Start 04/13/19 at 22:00; Stop 04/14/19 at 21:59 Lidocaine/ Epinephrine (LIDOCAINE 1%-EPI 1:100,000 Multi-Dose) 20 ml STK-MED ONCE .ROUTE ; Start 04/14/19 at 09:50; Stop 04/14/19 at 09:50; Status DC Midazolam HCl (Versed) 2 mg STK-MED ONCE .ROUTE ; Start 04/14/19 at 10:28; Stop 04/14/19 at 10:29; Status DC Fentanyl Citrate (Fentanyl 2ml Vial) 100 mcg STK-MED ONCE .ROUTE ; Start 04/14/19 at 10:29; Stop 04/14/19 at 10:29; Status DC Midazolam HCl (Versed) 2 mg 1X ONCE IV ; Start 04/14/19 at 11:00; Stop 04/14/19 at 11:01; Status DC Fentanyl Citrate (Fentanyl 2ml Vial) 100 mcg 1X ONCE IV Last administered on 04/14/19at 11:07; Start 04/14/19 at 11:00; Stop 04/14/19 at 11:01; Status DC Lidocaine/ Epinephrine (LIDOCAINE 1%-EPI 1:100,000 Multi-Dose) 20 ml 1X ONCE IN J Last administered on 04/14/19at 11:05; Start 04/14/19 at 11:00; Stop 04/14/19 at 11:01; Status DC Active Scripts Active Tylenol (Acetaminophen) 325 Mg Tablet 650 Mg PO PRN Q6HRS PRN Amlodipine Besylate 5 Mg Tablet 5 Mg PO DAILY [Pantoprazole] 40 MG Tablet.dr 40 Mg PO DAILYAC 30 Days Zinc Oxide 56.7 Gm Oint...g. 1 Sang TP BID Ambien (Zolpidem Tartrate) 5 Mg Tablet 5 Mg PO PRN QHS PRN 30 Days [Tpn Per Pharmacy] 1 EACH Each 1 Each MC PRN DAILY PRN TPN at 85cc/hour Sertraline Hcl 50 Mg Tablet 50 Mg PO DAILY 30 Days Lidocaine 35.44 Gm Oint...g. 1 Sang TP BID Reported Zofran Odt (Ondansetron) 4 Mg Tab.rapdis 1 Tab SL PRN Q8HRS PRN Zinc Oxide 56.7 Gm Oint...g. 56.7 Gm TP PRN BID Dilaudid (Hydromorphone Hcl) 2 Mg Tablet 1 Tab PO PRN QID PRN Lorazepam 0.5 Mg Tablet 0.5 Mg PO Q6HRS PRN Allergies Allergies: Coded Allergies: Iodinated Contrast- Oral and IV Dye (Verified Allergy, Severe, Anaphylaxis, 10/31/18) PT HAS BEEN PREMEDICATED BEFORE WITH NO PROBLEMS, 11-27-. 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
--- NOTE | 2019-04-14 11:11 | PDOC ---
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 new catheter suitable for use Complications no immediate RODO BOYD MD Apr 14, 2019 11:11
--- NOTE | 2019-04-14 11:18 | RAD ---
Procedure: Tunneled central venous catheter exchanged through same venous access Clinical Indication: 64-year-old with limited venous access options, and infected long-term tunneled central venous catheter. Sedation: Conscious sedation was administered with a total intraprocedural [id number] time of 30 minutes. The patient was monitored by a qualified independent observer throughout the time of sedation. Please refer to the medical record for exact doses of medications utilized to achieve moderate sedation. Antibiotics: Patient is on systemic IV antibiotic therapy Exposure: Kerma-Area Product: 0.4 Gycm2 Sterility: The procedure was performed in its entirety using appropriate elements of sterile technique. Consent: The procedure was explained in its entirety to the patient or the patients designated inventory representative by a member of the treatment team, including a discussion of the risks, benefits and commonly accepted alternatives to the procedure, as well as the expected consequences of no therapy whatsoever. Discussion of the risks included, but was not limited to, those that are most frequent and those that are rare but possibly severe or life-threatening, as well as the possibility of unforeseen complications. Technique and Findings: Following informed consent, the patient was prepped and draped in usual sterile fashion. Preliminary fluoroscopic spot view revealed an intact right IJ tunneled central venous catheter. 1% lidocaine was used to achieve local anesthesia around the exit site, and blunt dissection techniques were used to free the cuff. The entire catheter was then removed over wire and a 5 Frisian peel-away sheath was advanced over the wire into the superior vena cava. A new tunneled central venous catheter was then deployed over the wire through the peel-away sheath under fluoroscopic guidance such that the distal tip resided at the cavoatrial junction. Both lumens flushed and aspirated with ease. The new catheter was sutured to the skin, flushed with saline, and capped. Complications: No immediate Impression: 1. Removal and replacement of a tunneled central venous catheter to the same right IJ venous tract as described. This patient has limited venous options, necessitating preservation of access.
--- NOTE | 2019-04-14 11:25 | PDOC ---
Infectious Disease Note Subjective Subjective No complaints but is post line change and medicated Vital Sign Vital Signs Vital Signs Date Time Temp Pulse Resp B/P (MAP) Pulse Ox O2 Delivery O2 Flow Rate FiO2 04/14/19 11:08 70 15 100 Nasal Cannula 2.0 04/14/19 07:00 98.1 189/90 (123) 98.1 Physical Exam PHYSICAL EXAM CONSTITUTIONAL: She is pleasant. She is cooperative. She is in no acute distress. She is sitting upright in bed. smiling HEENT: Pupils are equal and reactive. She has normal conjunctivae. Oral cavity, pharynx is clear without signs of any thrush. NECK: Supple, no JVD. LUNGS: Clear to auscultation bilaterally. HEART: S1, S2. Right-sided chest PICC line without signs of any complications. There is no streaking or swelling. ABDOMEN: Enterocutaneous fistula with a small hole. She has had some minimal excoriation. She has some cobblestoning of the area around it. There are some small areas about the area with pinpoint openings, but there is no gross pus or fluid collection. No gross fluctuance. EXTREMITIES: Without clubbing or cyanosis. No gross edema. SKIN: Warm to touch without signs of rash. NEUROLOGIC: She is alert and oriented and nonfocal. PSYCHIATRIC: Affect is pleasant Labs Lab Laboratory Tests Test 04/13/19 14:10 04/14/19 06:45 Magnesium Level 0.8 mg/dL (1.8-2.4) 1.0 mg/dL (1.8-2.4) White Blood Count 5.7 x10^3/uL (4.0-11.0) Red Blood Count 3.10 x10^6/uL (3.50-5.40) Hemoglobin 8.5 g/dL (12.0-15.5) Hematocrit 25.9 % (36.0-47.0) Mean Corpuscular Volume 84 fL (79-100) Mean Corpuscular Hemoglobin 28 pg (25-35) Mean Corpuscular Hemoglobin Concent 33 g/dL (31-37) Red Cell Distribution Width 19.4 % (11.5-14.5) Platelet Count 323 x10^3/uL (140-400) Neutrophils (%) (Auto) 74 % (31-73) Lymphocytes (%) (Auto) 14 % (24-48) Monocytes (%) (Auto) 9 % (0-9) Eosinophils (%) (Auto) 2 % (0-3) Basophils (%) (Auto) 1 % (0-3) Neutrophils # (Auto) 4.3 x10^3/uL (1.8-7.7) Lymphocytes # (Auto) 0.8 x10^3/uL (1.0-4.8) Monocytes # (Auto) 0.5 x10^3/uL (0.0-1.1) Eosinophils # (Auto) 0.1 x10^3/uL (0.0-0.7) Basophils # (Auto) 0.1 x10^3/uL (0.0-0.2) Sodium Level 140 mmol/L (136-145) Potassium Level 3.9 mmol/L (3.5-5.1) Chloride Level 109 mmol/L (98-107) Carbon Dioxide Level 23 mmol/L (21-32) Anion Gap 8 (6-14) Blood Urea Nitrogen 13 mg/dL (7-20) Creatinine 0.5 mg/dL (0.6-1.0) Estimated GFR (Cockcroft-Gault) 150.3 Glucose Level 94 mg/dL (70-99) Calcium Level 7.4 mg/dL (8.5-10.1) Phosphorus Level 2.8 mg/dL (2.6-4.7) Micro Microbiology 04/12/19 Blood Culture - Final, Complete Objective Assessment GNR sepsis - POA 04/12 Fever- better Weakness Abd pain Ec fisula with increased drainage Plan Plan of Care Line changed this am 04/14 Cont zyvox wean soon Dose Dapto times one 04/14 Add Meropenem and Micafungin F/u blood cult and labs Appreciate IR d/w nursing ABBY MOTT MD Apr 14, 2019 11:25
--- NOTE | 2019-04-14 12:38 | PN ---
DATE: SUBJECTIVE: The patient is resting, slightly propped up in bed, eating her lunch comfortably, in no apparent distress. She underwent a tunneled central line placement under conscious sedation successfully. She is now on antibiotic as well as TPN. The antibiotics include linezolid, meropenem. She is also on micafungin. PHYSICAL EXAMINATION: GENERAL: When examined here, she was pale, cachectic, but no jaundice, cyanosis or thyromegaly. No jugular venous distention. No limb edema. VITAL SIGNS: Her heart rate was 70, blood pressure was 189/90, temperature was 98.1, respiratory rate was 16, and oxygen saturation was 100% on 2 liters of oxygen. HEAD, EYES, EARS, NOSE AND THROAT: Showed normocephalic, atraumatic. NECK: Supple. HEART: Showed normal first and second heart sounds with no gallop, rub or murmur. CHEST: Clear to auscultation. No crepitation or rhonchi. ABDOMEN: Distended, soft, nontender. No guarding or rigidity. No organomegaly. All hernial orifice intact. Bowel sounds normal. NEUROLOGIC: She was awake, alert, responding appropriately. All cranial nerves intact. She moves all extremities without difficulty. Her intake over the last 24 hours was 1000, no output was recorded. LABORATORY DATA: Her lab work at this morning showed a serum sodium 140, potassium 3.9, chloride was 109, bicarbonate 23, anion gap of 8, BUN 13, creatinine 0.5, estimated GFR was 150 mL per minute. Her glucose was 94, calcium was 7.4, magnesium was only 1 millimole. Her white cell count was 5700, hemoglobin 8.5, hematocrit 26, MCV 84 and platelet count 323,000. ASSESSMENT: 1. Gram-negative keisha sepsis, weakness, abdominal pain. 2. Enterocutaneous fistula with increasing drainage. Her tunneled central line was changed successfully this morning. PLAN: The plan is to continue with antibiotic in the form of Zyvox, meropenem as well as micafungin. Continue with TPN. I will ask the pharmacy to adjust the magnesium and her TPN. JOELLE DYE MD DR: [email or web address] JOB#: [id number] / [id number]
[2019-04-14] MEDS ORDERED: MAGNESIUM SULFATE 4GM 100 ML IV ONE (13:00)
[2019-04-14] MEDS: TPN PER PHARMACY MC PRN (13:08)
--- NOTE | 2019-04-14 13:11 | NUR ---
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 TPN B:Pertinent PMH: Long-term TPN Height: 5 feet, 4 inches Weight: 54.6 kg Current diet: Regular LABS: Sodium: 140 Potassium: 3.9 Chloride: 109 Calcium: 7.4 Corrected Calcium: 9.08 Magnesium: 1 CO2: 23 SCr: 0.5 Glucose: 94 Albumin: 1.9 AST: 17 ALT: 7 TPN FORMULA: TPN TYPE: Central Continuous AMINO ACIDS: 90 gm DEXTROSE: 285 gm LIPIDS: 35 gm SODIUM CHLORIDE: 200 mEq POTASSIUM CHLORIDE: 60 mEq POTASSIUM PHOSPHATE: 13.6 mmol MAGNESIUM: 20 mEq CALCIUM: 10 mEq MULTIPLE VITAMIN: 10 ml TRACE ELEMENTS: 1 ml TPN PLAN: Magnesium 4g 1x IVPB ordered for today and magnesium increased to 20mEq in tonight's bag of TPN. R: Change TPN per plan and ordered formula. Will monitor electrolytes, glucose, and tolerance to TPN. Sandra Muñiz RPH, 04/14/19 [id number]
[2019-04-14 15:22] LABS: BILIRUBIN,URINE NEGATIVE (NEG); CLARITY,URINE CLEAR; COLOR,URINE YELLOW; NITRITE,URINE NEGATIVE (NEG); PROTEIN,URINE 30 mg/dL (NEG-TRACE); UROBILINOGEN,URINE 0.2 mg/dL (0.2 mg/dL)
[2019-04-14 15:27] LABS: SQUAMOUS EPITHELIAL CELL,UR MOD /LPF
[2019-04-14 15:28] LABS: BACTERIA,URINE FEW /HPF (0-FEW)
[2019-04-14 15:29] LABS: RBC,URINE >40 /HPF (0-2); WBC,URINE 20-40 /HPF (0-4); YEAST,URINE PRESENT /HPF
--- NOTE | 2019-04-14 16:18 | PDOC ---
G I PROGRESS NOTE Subjective Feeling somewhat stronger today. Has had PICC changed. Physical Exam Lungs clear. RRR Abdomen soft with fistulae. Review of Relevant I have reviewed the following items lucila (where applicable) has been applied. Labs Laboratory Tests Test 04/12/19 20:52 04/13/19 14:10 04/14/19 06:45 04/14/19 15:15 White Blood Count 6.9 x10^3/uL (4.0-11.0) 5.7 x10^3/uL (4.0-11.0) Red Blood Count 3.27 x10^6/uL (3.50-5.40) 3.10 x10^6/uL (3.50-5.40) Hemoglobin 9.0 g/dL (12.0-15.5) 8.5 g/dL (12.0-15.5) Hematocrit 27.3 % (36.0-47.0) 25.9 % (36.0-47.0) Mean Corpuscular Volume 83 fL (79-100) 84 fL (79-100) Mean Corpuscular Hemoglobin 28 pg (25-35) 28 pg (25-35) Mean Corpuscular Hemoglobin Concent 33 g/dL (31-37) 33 g/dL (31-37) Red Cell Distribution Width 19.1 % (11.5-14.5) 19.4 % (11.5-14.5) Platelet Count 385 x10^3/uL (140-400) 323 x10^3/uL (140-400) Neutrophils (%) (Auto) 74 % (31-73) 74 % (31-73) Lymphocytes (%) (Auto) 14 % (24-48) 14 % (24-48) Monocytes (%) (Auto) 9 % (0-9) 9 % (0-9) Eosinophils (%) (Auto) 3 % (0-3) 2 % (0-3) Basophils (%) (Auto) 0 % (0-3) 1 % (0-3) Neutrophils # (Auto) 5.1 x10^3/uL (1.8-7.7) 4.3 x10^3/uL (1.8-7.7) Lymphocytes # (Auto) 1.0 x10^3/uL (1.0-4.8) 0.8 x10^3/uL (1.0-4.8) Monocytes # (Auto) 0.6 x10^3/uL (0.0-1.1) 0.5 x10^3/uL (0.0-1.1) Eosinophils # (Auto) 0.2 x10^3/uL (0.0-0.7) 0.1 x10^3/uL (0.0-0.7) Basophils # (Auto) 0.0 x10^3/uL (0.0-0.2) 0.1 x10^3/uL (0.0-0.2) Prothrombin Time 14.6 SEC (11.7-14.0) Prothromb Time International Ratio 1.2 (0.8-1.1) Sodium Level 144 mmol/L (136-145) 140 mmol/L (136-145) Potassium Level 2.5 mmol/L (3.5-5.1) 3.9 mmol/L (3.5-5.1) Chloride Level 107 mmol/L (98-107) 109 mmol/L (98-107) Carbon Dioxide Level 26 mmol/L (21-32) 23 mmol/L (21-32) Anion Gap 11 (6-14) 8 (6-14) Blood Urea Nitrogen 16 mg/dL (7-20) 13 mg/dL (7-20) Creatinine 0.6 mg/dL (0.6-1.0) 0.5 mg/dL (0.6-1.0) Estimated GFR (Cockcroft-Gault) 121.8 150.3 BUN/Creatinine Ratio 27 (6-20) Glucose Level 79 mg/dL (70-99) 94 mg/dL (70-99) Lactic Acid Level 0.9 mmol/L (0.4-2.0) Calcium Level 7.5 mg/dL (8.5-10.1) 7.4 mg/dL (8.5-10.1) Total Bilirubin 0.4 mg/dL (0.2-1.0) Aspartate Amino Transf (AST/SGOT) 17 U/L (15-37) Alanine Aminotransferase (ALT/SGPT) 7 U/L (14-59) Alkaline Phosphatase 85 U/L (46-116) Total Protein 7.6 g/dL (6.4-8.2) Albumin 1.9 g/dL (3.4-5.0) Albumin/Globulin Ratio 0.3 (1.0-1.7) Lipase 62 U/L (73-393) Magnesium Level 0.8 mg/dL (1.8-2.4) 1.0 mg/dL (1.8-2.4) Phosphorus Level 2.8 mg/dL (2.6-4.7) Urine Collection Type Unknown Urine Color Yellow Urine Clarity Clear Urine pH 6.0 Urine Specific [place] 1.020 Urine Protein 30 mg/dL (NEG-TRACE) Urine Glucose (UA) Negative mg/dL (NEG) Urine Ketones (Stick) Negative mg/dL (NEG) Urine Blood Moderate (NEG) Urine Nitrite Negative (NEG) Urine Bilirubin Negative (NEG) Urine Urobilinogen Dipstick 0.2 mg/dL (0.2 mg/dL) Urine Leukocyte Esterase Small (NEG) Urine RBC >40 /HPF (0-2) Urine WBC 20-40 /HPF (0-4) Urine Squamous Epithelial Cells Mod /LPF Urine Bacteria Few /HPF (0-FEW) Urine Mucus Mod /LPF Urine Yeast Present /HPF Laboratory Tests Test 04/14/19 06:45 04/14/19 15:15 White Blood Count 5.7 x10^3/uL (4.0-11.0) Red Blood Count 3.10 x10^6/uL (3.50-5.40) Hemoglobin 8.5 g/dL (12.0-15.5) Hematocrit 25.9 % (36.0-47.0) Mean Corpuscular Volume 84 fL (79-100) Mean Corpuscular Hemoglobin 28 pg (25-35) Mean Corpuscular Hemoglobin Concent 33 g/dL (31-37) Red Cell Distribution Width 19.4 % (11.5-14.5) Platelet Count 323 x10^3/uL (140-400) Neutrophils (%) (Auto) 74 % (31-73) Lymphocytes (%) (Auto) 14 % (24-48) Monocytes (%) (Auto) 9 % (0-9) Eosinophils (%) (Auto) 2 % (0-3) Basophils (%) (Auto) 1 % (0-3) Neutrophils # (Auto) 4.3 x10^3/uL (1.8-7.7) Lymphocytes # (Auto) 0.8 x10^3/uL (1.0-4.8) Monocytes # (Auto) 0.5 x10^3/uL (0.0-1.1) Eosinophils # (Auto) 0.1 x10^3/uL (0.0-0.7) Basophils # (Auto) 0.1 x10^3/uL (0.0-0.2) Sodium Level 140 mmol/L (136-145) Potassium Level 3.9 mmol/L (3.5-5.1) Chloride Level 109 mmol/L (98-107) Carbon Dioxide Level 23 mmol/L (21-32) Anion Gap 8 (6-14) Blood Urea Nitrogen 13 mg/dL (7-20) Creatinine 0.5 mg/dL (0.6-1.0) Estimated GFR (Cockcroft-Gault) 150.3 Glucose Level 94 mg/dL (70-99) Calcium Level 7.4 mg/dL (8.5-10.1) Phosphorus Level 2.8 mg/dL (2.6-4.7) Magnesium Level 1.0 mg/dL (1.8-2.4) Urine Collection Type Unknown Urine Color Yellow Urine Clarity Clear Urine pH 6.0 Urine Specific [place] 1.020 Urine Protein 30 mg/dL (NEG-TRACE) Urine Glucose (UA) Negative mg/dL (NEG) Urine Ketones (Stick) Negative mg/dL (NEG) Urine Blood Moderate (NEG) Urine Nitrite Negative (NEG) Urine Bilirubin Negative (NEG) Urine Urobilinogen Dipstick 0.2 mg/dL (0.2 mg/dL) Urine Leukocyte Esterase Small (NEG) Urine RBC >40 /HPF (0-2) Urine WBC 20-40 /HPF (0-4) Urine Squamous Epithelial Cells Mod /LPF Urine Bacteria Few /HPF (0-FEW) Urine Mucus Mod /LPF Urine Yeast Present /HPF Microbiology 04/12/19 Blood Culture - Final, Complete; GNR, sens and ID pending. Vitals/I & O Vital Sign - Last 24 Hours 04/13/19 04/13/19 04/13/19 04/13/19 17:10 19:25 19:45 22:03 Temp 98.1 98.1 Pulse 84 Resp 18 18 16 B/P (MAP) 165/87 (113) Pulse Ox 100 O2 Delivery Room Air Room Air Room Air Room Air 04/13/19 04/13/19 04/14/19 04/14/19 22:33 23:58 03:53 06:45 Temp 98.1 98.2 98.1 98.2 Pulse 67 79 Resp 16 18 18 16 B/P (MAP) 175/83 (113) 147/74 (98) Pulse Ox 100 100 O2 Delivery Room Air Room Air Room Air Room Air 04/14/19 04/14/19 04/14/19 04/14/19 07:00 07:20 08:00 11:07 Temp 98.1 98.1 Pulse 83 Resp 16 16 14 B/P (MAP) 189/90 (123) Pulse Ox 100 99 O2 Delivery Room Air Room Air Room Air Nasal Cannula O2 Flow Rate 2.0 04/14/19 04/14/19 04/14/19 11:08 13:05 13:36 Pulse 70 Resp 15 Pulse Ox 100 100 100 O2 Delivery Nasal Cannula Room Air Room Air O2 Flow Rate 2.0 Intake and Output 04/13/19 04/13/19 04/14/19 15:00 23:00 07:00 Intake Total 120 ml 970 ml 1410 ml Output Total 3 ml Balance 120 ml 967 ml 1410 ml Problem List Problems Medical Problems: (1) Enterocutaneous fistula Status: Acute Assessment Chronic EC fistulae. GN sepsis--PICC? Plan of Care Note Continue TPN, antibiotics, etc. BENITA CALVILLO MD Apr 14, 2019 16:18
[2019-04-14] MEDS: ZOLPIDEM 5 MG TABLET. PO PRN (21:32)
[2019-04-14] MEDS ORDERED: TOTAL PARENTERAL NUTRITION IV SCH ×10 (22:00)
[2019-04-14] MEDS ORDERED: AMINO ACID IV SCH ×10 (22:00)
[2019-04-14] MEDS ORDERED: [UNRECOGNIZED DRUG - OTHER] IV SCH ×10 (22:00)
[2019-04-14] MEDS ORDERED: DEXTROSE 70% IV SCH ×10 (22:00)
[2019-04-15] MEDS ORDERED: LIDOCAINE 2% TOPICAL JELLY 5GM TUBE. TP PRN (01:30)
[2019-04-15] MEDS: MEROPENEM 500 MG in IV NORMAL SALINE 50ML 50 ML IV SCH ×4 (01:44→18:08)
[2019-04-15] MEDS: HYDROmorphone 2 MG/ML VIAL IV PRN ×5 (01:52→18:14)
[2019-04-15 03:50] VITALS: BP 173/97
--- NOTE | 2019-04-15 04:20 | NUR ---
Pt. went to bathroom around 0120 and sat on toilet. This nurse went in to give pt. some medications but then decided to wait until pt. had settled back in bed. This nurse went back 15 minutes later to check if pt. was back in bed and she was still on toilet so I left pt. alone for another moment. This nurse checked back every 15 minutes to see if patient was back in bed so this nurse decided to go ahead and give medications. At 0230 this nurse went to check on pt. and she was asleep on the toilet with her head on her left knee. A black eye was noted and questioned pt. about it. She stated she did not fall or she "would have yelled for help" No bruising noted anywhere. BP was elevated and Dr. Cline was called but no orders were given just to recheck vitals in AM. Pt. back in bed with alarm. Will continue to monitor.
[2019-04-15] MEDS: PANTOPRAZOLE 40 MG TABLET.DR. PO SCH (05:39)
[2019-04-15 06:17] LABS: CALCIUM 8.2 mg/dL (8.5-10.1); CREATININE 0.6 mg/dL (0.6-1.0); GFR 121.8; MAGNESIUM 2.3 mg/dL (1.8-2.4); POTASSIUM 4.2 mmol/L (3.5-5.1)
[2019-04-15 07:00] VITALS: BP 177/87
--- NOTE | 2019-04-15 08:07 | PDOC ---
Infectious Disease Note Subjective Subjective Feeling well but has a bruise on Left eye. Uncertain how it was obtained No F/C/S/SOA/rash. No pain at new line site Did vomit once last pm Abd drainage is less Vital Sign Vital Signs Vital Signs Date Time Temp Pulse Resp B/P (MAP) Pulse Ox O2 Delivery O2 Flow Rate FiO2 04/15/19 03:50 97.6 72 18 173/97 (122) 100 Room Air 97.6 04/14/19 11:08 2.0 Physical Exam PHYSICAL EXAM CONSTITUTIONAL: She is pleasant. She is cooperative. She is in no acute distress. She is sitting on side of bed. smiling HEENT: Pupils are equal and reactive. She has normal conjunctivae. Left eye echymosis. Oral cavity, pharynx is clear without signs of any thrush. NECK: Supple, no JVD. LUNGS: Clear to auscultation bilaterally. HEART: S1, S2. Right-sided chest PICC line without signs of any complications. There is no streaking or swelling. ABDOMEN: Enterocutaneous fistula with a small hole. She has had some minimal excoriation. She has some cobblestoning of the area around it. There are some small areas about the area with pinpoint openings, but there is no gross pus or fluid collection. No gross fluctuance. EXTREMITIES: Without clubbing or cyanosis. No gross edema. SKIN: Warm to touch without signs of rash. NEUROLOGIC: She is alert and oriented and nonfocal. PSYCHIATRIC: Affect is pleasant Labs Lab Laboratory Tests Test 04/14/19 15:15 04/15/19 05:50 Urine Collection Type Unknown Urine Color Yellow Urine Clarity Clear Urine pH 6.0 Urine Specific [place] 1.020 Urine Protein 30 mg/dL (NEG-TRACE) Urine Glucose (UA) Negative mg/dL (NEG) Urine Ketones (Stick) Negative mg/dL (NEG) Urine Blood Moderate (NEG) Urine Nitrite Negative (NEG) Urine Bilirubin Negative (NEG) Urine Urobilinogen Dipstick 0.2 mg/dL (0.2 mg/dL) Urine Leukocyte Esterase Small (NEG) Urine RBC >40 /HPF (0-2) Urine WBC 20-40 /HPF (0-4) Urine Squamous Epithelial Cells Mod /LPF Urine Bacteria Few /HPF (0-FEW) Urine Mucus Mod /LPF Urine Yeast Present /HPF Sodium Level 139 mmol/L (136-145) Potassium Level 4.2 mmol/L (3.5-5.1) Chloride Level 109 mmol/L (98-107) Carbon Dioxide Level 25 mmol/L (21-32) Anion Gap 5 (6-14) Blood Urea Nitrogen 12 mg/dL (7-20) Creatinine 0.6 mg/dL (0.6-1.0) Estimated GFR (Cockcroft-Gault) 121.8 Glucose Level 110 mg/dL (70-99) Calcium Level 8.2 mg/dL (8.5-10.1) Phosphorus Level 2.8 mg/dL (2.6-4.7) Magnesium Level 2.3 mg/dL (1.8-2.4) Micro Microbiology 04/12/19 Blood Culture - Final, Complete Objective Assessment GNR sepsis - POA 04/12 clinically looking better Line changed 04/14 Fever- better Weakness Abd pain Ec fisula with increased drainage Plan Plan of Care Cont zyvox wean soon Dose Dapto times one 04/14 Cont Meropenem and Micafungin F/u blood cult and labs Appreciate IR d/w nursing ABBY MOTT MD Apr 15, 2019 08:06
[2019-04-15] MEDS: SERTRALINE 50 MG TABLET. PO SCH (08:40)
[2019-04-15] MEDS: MICAFUNGIN 100 MG in IV DEXTROSE 5% 100ML 100 ML IV SCH (08:41)
[2019-04-15 11:00] VITALS: BP 173/89
--- NOTE | 2019-04-15 11:23 | PDOC ---
G I PROGRESS NOTE Subjective Few complaints. Physical Exam Lungs clear. RRR Abdomen soft, not distended. Scars/draining fistulae. Review of Relevant I have reviewed the following items lucila (where applicable) has been applied. Labs Laboratory Tests Test 04/13/19 14:10 04/14/19 06:45 04/14/19 15:15 04/15/19 05:50 Magnesium Level 0.8 mg/dL (1.8-2.4) 1.0 mg/dL (1.8-2.4) 2.3 mg/dL (1.8-2.4) White Blood Count 5.7 x10^3/uL (4.0-11.0) Red Blood Count 3.10 x10^6/uL (3.50-5.40) Hemoglobin 8.5 g/dL (12.0-15.5) Hematocrit 25.9 % (36.0-47.0) Mean Corpuscular Volume 84 fL (79-100) Mean Corpuscular Hemoglobin 28 pg (25-35) Mean Corpuscular Hemoglobin Concent 33 g/dL (31-37) Red Cell Distribution Width 19.4 % (11.5-14.5) Platelet Count 323 x10^3/uL (140-400) Neutrophils (%) (Auto) 74 % (31-73) Lymphocytes (%) (Auto) 14 % (24-48) Monocytes (%) (Auto) 9 % (0-9) Eosinophils (%) (Auto) 2 % (0-3) Basophils (%) (Auto) 1 % (0-3) Neutrophils # (Auto) 4.3 x10^3/uL (1.8-7.7) Lymphocytes # (Auto) 0.8 x10^3/uL (1.0-4.8) Monocytes # (Auto) 0.5 x10^3/uL (0.0-1.1) Eosinophils # (Auto) 0.1 x10^3/uL (0.0-0.7) Basophils # (Auto) 0.1 x10^3/uL (0.0-0.2) Sodium Level 140 mmol/L (136-145) 139 mmol/L (136-145) Potassium Level 3.9 mmol/L (3.5-5.1) 4.2 mmol/L (3.5-5.1) Chloride Level 109 mmol/L (98-107) 109 mmol/L (98-107) Carbon Dioxide Level 23 mmol/L (21-32) 25 mmol/L (21-32) Anion Gap 8 (6-14) 5 (6-14) Blood Urea Nitrogen 13 mg/dL (7-20) 12 mg/dL (7-20) Creatinine 0.5 mg/dL (0.6-1.0) 0.6 mg/dL (0.6-1.0) Estimated GFR (Cockcroft-Gault) 150.3 121.8 Glucose Level 94 mg/dL (70-99) 110 mg/dL (70-99) Calcium Level 7.4 mg/dL (8.5-10.1) 8.2 mg/dL (8.5-10.1) Phosphorus Level 2.8 mg/dL (2.6-4.7) 2.8 mg/dL (2.6-4.7) Urine Collection Type Unknown Urine Color Yellow Urine Clarity Clear Urine pH 6.0 Urine Specific [place] 1.020 Urine Protein 30 mg/dL (NEG-TRACE) Urine Glucose (UA) Negative mg/dL (NEG) Urine Ketones (Stick) Negative mg/dL (NEG) Urine Blood Moderate (NEG) Urine Nitrite Negative (NEG) Urine Bilirubin Negative (NEG) Urine Urobilinogen Dipstick 0.2 mg/dL (0.2 mg/dL) Urine Leukocyte Esterase Small (NEG) Urine RBC >40 /HPF (0-2) Urine WBC 20-40 /HPF (0-4) Urine Squamous Epithelial Cells Mod /LPF Urine Bacteria Few /HPF (0-FEW) Urine Mucus Mod /LPF Urine Yeast Present /HPF Laboratory Tests Test 04/14/19 15:15 04/15/19 05:50 Urine Collection Type Unknown Urine Color Yellow Urine Clarity Clear Urine pH 6.0 Urine Specific [place] 1.020 Urine Protein 30 mg/dL (NEG-TRACE) Urine Glucose (UA) Negative mg/dL (NEG) Urine Ketones (Stick) Negative mg/dL (NEG) Urine Blood Moderate (NEG) Urine Nitrite Negative (NEG) Urine Bilirubin Negative (NEG) Urine Urobilinogen Dipstick 0.2 mg/dL (0.2 mg/dL) Urine Leukocyte Esterase Small (NEG) Urine RBC >40 /HPF (0-2) Urine WBC 20-40 /HPF (0-4) Urine Squamous Epithelial Cells Mod /LPF Urine Bacteria Few /HPF (0-FEW) Urine Mucus Mod /LPF Urine Yeast Present /HPF Sodium Level 139 mmol/L (136-145) Potassium Level 4.2 mmol/L (3.5-5.1) Chloride Level 109 mmol/L (98-107) Carbon Dioxide Level 25 mmol/L (21-32) Anion Gap 5 (6-14) Blood Urea Nitrogen 12 mg/dL (7-20) Creatinine 0.6 mg/dL (0.6-1.0) Estimated GFR (Cockcroft-Gault) 121.8 Glucose Level 110 mg/dL (70-99) Calcium Level 8.2 mg/dL (8.5-10.1) Phosphorus Level 2.8 mg/dL (2.6-4.7) Magnesium Level 2.3 mg/dL (1.8-2.4) Microbiology 04/12/19 Blood Culture - Final, Complete Vitals/I & O Vital Sign - Last 24 Hours 04/14/19 04/14/19 04/14/19 04/14/19 11:30 11:45 12:00 12:30 Pulse 77 B/P (MAP) 145/89 (107) 132/75 (94) 150/81 (104) 161/89 (113) Pulse Ox 97 O2 Delivery Room Air Room Air Room Air Room Air 04/14/19 04/14/19 04/14/19 04/14/19 12:45 13:05 13:15 13:36 B/P (MAP) 161/90 (113) 161/99 (119) Pulse Ox 100 100 O2 Delivery Room Air Room Air Room Air Room Air 04/14/19 04/14/19 04/14/19 04/14/19 14:15 14:32 17:08 17:39 Pulse 72 B/P (MAP) 149/83 (105) 158/89 (112) Pulse Ox 99 99 99 O2 Delivery Room Air Room Air Room Air Room Air 04/14/19 04/14/19 04/14/19 04/14/19 19:45 20:00 21:27 21:57 Temp 97.5 97.5 Pulse 75 Resp 18 B/P (MAP) 141/76 (97) Pulse Ox 97 O2 Delivery Room Air Room Air Room Air Room Air 04/15/19 04/15/19 04/15/19 04/15/19 01:52 02:24 03:50 07:00 Temp 97.6 97.9 97.6 97.9 Pulse 72 84 Resp 18 16 B/P (MAP) 173/97 (122) 177/87 (117) Pulse Ox 100 100 O2 Delivery Room Air Room Air Room Air Room Air 04/15/19 04/15/19 08:42 09:12 O2 Delivery Room Air Room Air Intake and Output 04/14/19 04/14/19 04/15/19 15:00 23:00 07:00 Intake Total 150 ml Balance 150 ml Problem List Problems Medical Problems: (1) Enterocutaneous fistula Status: Acute Assessment GN sepsis--PICC? Chronic EC fistulae. Plan of Care Note Continue as now/per ID. Await cultures. BENITA CALVILLO MD Apr 15, 2019 11:23
[2019-04-15] MEDS: TPN PER PHARMACY MC PRN (11:58)
--- NOTE | 2019-04-15 11:58 | NUR ---
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 TPN started B:Pertinent PMH: Long-term TPN Height: 5 feet, 4 inches Weight: 54.629843 kg Current diet: Regular LABS: Sodium: 139 Potassium: 4.2 Chloride: 109 Calcium: 8.2 Corrected Calcium: 9.88 Magnesium: 2.3 CO2: 25 SCr: 0.6 Glucose: 110 Albumin: 1.9 AST: 17 ALT: 7 TPN FORMULA: TPN TYPE: Central Continuous AMINO ACIDS: 90 gm DEXTROSE: 285 gm LIPIDS: 35 gm SODIUM CHLORIDE: 200 mEq SODIUM ACETATE: mEq SODIUM PHOSPHATE: mmol POTASSIUM CHLORIDE: 60 mEq POTASSIUM ACETATE: mEq POTASSIUM PHOSPHATE: 13.6 mmol MAGNESIUM: 20 mEq CALCIUM: 10 mEq INSULIN: units MULTIPLE VITAMIN: 10 ml TRACE ELEMENTS: 1 ml(s) TPN PLAN: Magnesium corrected, electrolytes WNLs, continue same TPN, labs in the am R: Continue TPN as written above. Will monitor electrolytes, glucose, and tolerance to TPN. DIONISIO LOMBARDO [facility], 04/15/19 [id number]
--- NOTE | 2019-04-15 13:15 | PN ---
DATE: 04/15/2019 SUBJECTIVE: The patient is sitting on the edge of the bed, eating her lunch comfortably, in no apparent distress. On questioning her, she denied any complaints; however, she has marked bruises around her left eye, although there is no documented fall. Nursing staff said that she was sitting on the toilet and putting her hands around her head. She might have fallen, although there is no documentation of that. The patient herself said that she has slept with her knitting needles near her face, might have sustained some injury from that. PHYSICAL EXAMINATION: GENERAL: When I examined her this morning, she looked pale, somewhat cachectic, but no jaundice or cyanosis. No lymphadenopathy, no thyromegaly. No jugular venous distention. Has mild bilateral lower limb edema. VITAL SIGNS: Her heart rate was 84, blood pressure was 177/87, temperature was 97.9, respiratory rate was 16, and oxygen saturation was 100% on room air. HEAD, EYES, EARS, NOSE AND THROAT: Showed normocephalic, atraumatic. She definitely has bruises around her left eye. NECK: Supple. HEART: Showed normal first and second heart sounds with no gallop, rub or murmur. CHEST: Clear to auscultation. No crepitation or rhonchi. ABDOMEN: Distended, soft, nontender. No guarding or rigidity. No organomegaly. All hernial orifice intact. Bowel sounds normal. NEUROLOGIC: She was awake, alert, responding appropriately. All cranial nerves intact. She moves extremities without difficulty. She ambulates with a walker with standby assist. Her intake over the last 24 hours was 2500, no output was recorded. LABORATORY DATA: As of this morning, her serum sodium was 139, potassium 4.2, chloride 109, bicarbonate 25, anion gap of 5, BUN 12, creatinine 0.6, estimated GFR was 121 mL per minute. Her glucose 110, calcium was 8.2, phosphorus was 2.8 and magnesium was 2.3. Her prothrombin time was 14.6, INR 1.2. Urinalysis showed that she has 20-40 wbc's, few bacteria. ASSESSMENT: 1. Gram-negative keisha sepsis. 2. Weakness and abdominal pain. Two enterocutaneous fistula with decreasing drainage. 3. Her tunneled central line was changed successfully so far. Her blood cultures have shown gram-negative rods in both bottles; however, the identification and sensitivity is still pending at the time of this dictation. PLAN: To continue with Zyvox. Continue with daptomycin. Continue with meropenem and micafungin. Await the identification and sensitivity. Continue with TPN. Her hypomagnesemia has improved, today is 2.3. JOELLE DYE MD DR: LUZMARIA/jd JOB#: [id number] / [id number]
[2019-04-15 15:00] VITALS: BP 160/84
[2019-04-15 16:46] LABS: BASO # 0.1 x10^3/uL (0.0-0.2); BASO % 1 % (0-3); EOS # 0.1 x10^3/uL (0.0-0.7); EOS % 3 % (0-3); HEMATOCRIT 28.6 % (36.0-47.0); HEMOGLOBIN 9.3 g/dL (12.0-15.5); LYMPH # 0.9 x10^3/uL (1.0-4.8); LYMPH % 17 % (24-48); MEAN CORPUSCULAR HEMOGLOBIN 27 pg (25-35); MEAN CORPUSCULAR HGB CONC 32 g/dL (31-37); MEAN CORPUSCULAR VOLUME 85 fL (79-100); MONO # 0.4 x10^3/uL (0.0-1.1); MONO % 7 % (0-9); NEUT # 3.8 x10^3/uL (1.8-7.7); NEUT % 72 % (31-73); PLATELET COUNT 397 x10^3/uL (140-400); RED BLOOD COUNT 3.38 x10^6/uL (3.50-5.40); RED CELL DISTRIBUTION WIDTH 19.1 % (11.5-14.5); WHITE BLOOD COUNT 5.3 x10^3/uL (4.0-11.0)
[2019-04-15 16:56] LABS: CALCIUM 8.4 mg/dL (8.5-10.1); CREATININE 0.6 mg/dL (0.6-1.0); GFR 121.8; POTASSIUM 4.5 mmol/L (3.5-5.1)
[2019-04-15 17:02] LABS: ALBUMIN 1.9 g/dL (3.4-5.0); ALBUMIN/GLOBULIN RATIO 0.3 (1.0-1.7); TOTAL BILIRUBIN 0.2 mg/dL (0.2-1.0); TOTAL PROTEIN 7.7 g/dL (6.4-8.2)
--- NOTE | 2019-04-15 17:04 | RAD ---
Exam: CT head and maxillofacial INDICATION: Altered mental status TECHNIQUE: Sequential axial images through the head and face were obtained without the administration of IV contrast. Comparisons: None FINDINGS: Head: No focal parenchymal lesion or hemorrhage is identified. There is no midline shift or sulcal effacement. No acute vascular territory infarction is identified. Soni-white distinction is preserved. The ventricular system is within normal limits without compression hydrocephalus. The basal cisterns are well maintained. Face: Extracranial soft tissue contusion in the left frontal scalp and overlying the inferior margin of the left orbital ridge. Globes and intraorbital contents are normal. Gadolinium dental caries are noted. The visualized portions of the paranasal sinuses and mastoid air cells are well-pneumatized. No acute fractures. IMPRESSION: 1. Mild extracranial soft tissue contusion in the left frontal scalp and overlying the inferior margin of the left orbital ridge. 2. No acute intracranial abnormality. Exposure: One or more of the following in the visualized dose reduction techniques were utilized for this examination: 1. Automated exposure control 2. Adjustment of the MA and/or KV according to patient size Use of iterative of reconstructive technique Electronically signed by: Abdoul Puentes MD (04/15/2019 5:01 PM) [facility]
[2019-04-15 19:00] VITALS: BP 162/91
[2019-04-15] MEDS ORDERED: DEXTROSE 70% IV SCH ×10 (22:00)
[2019-04-15] MEDS ORDERED: TOTAL PARENTERAL NUTRITION IV SCH ×10 (22:00)
[2019-04-15] MEDS ORDERED: AMINO ACID IV SCH ×10 (22:00)
[2019-04-15] MEDS ORDERED: [UNRECOGNIZED DRUG - OTHER] IV SCH ×10 (22:00)
[2019-04-15 23:00] VITALS: BP 159/89
[2019-04-16] MEDS: MEROPENEM 500 MG in IV NORMAL SALINE 50ML 50 ML IV SCH ×4 (00:30→17:59)
--- NOTE | 2019-04-16 00:45 | NUR ---
Patient transferred to [address] [place] [address] and report given to JURGEN Larson. Patient orientated to room and family remains at bedside.
[2019-04-16] MEDS: HYDROmorphone 2 MG/ML VIAL IV PRN ×5 (01:10→23:40)
[2019-04-16 02:45] VITALS: BP 166/87
[2019-04-16 07:00] VITALS: BP_SYST 133; BP_SYST 142; BP_DIAS 59; BP_DIAS 72
--- NOTE | 2019-04-16 07:03 | PDOC ---
Infectious Disease Note Subjective Subjective Feeling well but a little slower to respnd this am. d/w nursing and has had received some dilaudid No F/C/S/SOA/rash. No pain at new line site. No visual changes denies vomiting Abd drainage is less Vital Sign Vital Signs Vital Signs Date Time Temp Pulse Resp B/P (MAP) Pulse Ox O2 Delivery O2 Flow Rate FiO2 04/16/19 02:45 98.4 87 16 166/87 (113) 98 Room Air 98.4 Physical Exam PHYSICAL EXAM CONSTITUTIONAL: She is pleasant. She is cooperative. She is in no acute distress. She is in bed but a little slower to respond but did smile HEENT: Pupils are equal and reactive. EOMI. She has normal conjunctivae. Left eye echymosis stabel. Oral cavity, pharynx is clear without signs of any thrush. NECK: Supple, no JVD. LUNGS: Clear to auscultation bilaterally. HEART: S1, S2. Right-sided chest PICC line without signs of any complications. There is no streaking or swelling. ABDOMEN: Enterocutaneous fistula with a small hole. She has had some minimal excoriation. She has some cobblestoning of the area around it. There are some small areas about the area with pinpoint openings, but there is no gross pus or fluid collection. No gross fluctuance. EXTREMITIES: Without clubbing or cyanosis. No gross edema. SKIN: Warm to touch without signs of rash. NEUROLOGIC: She is alert and oriented to me/[facility] nonfocal. PSYCHIATRIC: Affect is pleasant Labs Lab Laboratory Tests Test 04/15/19 16:29 White Blood Count 5.3 x10^3/uL (4.0-11.0) Red Blood Count 3.38 x10^6/uL (3.50-5.40) Hemoglobin 9.3 g/dL (12.0-15.5) Hematocrit 28.6 % (36.0-47.0) Mean Corpuscular Volume 85 fL (79-100) Mean Corpuscular Hemoglobin 27 pg (25-35) Mean Corpuscular Hemoglobin Concent 32 g/dL (31-37) Red Cell Distribution Width 19.1 % (11.5-14.5) Platelet Count 397 x10^3/uL (140-400) Neutrophils (%) (Auto) 72 % (31-73) Lymphocytes (%) (Auto) 17 % (24-48) Monocytes (%) (Auto) 7 % (0-9) Eosinophils (%) (Auto) 3 % (0-3) Basophils (%) (Auto) 1 % (0-3) Neutrophils # (Auto) 3.8 x10^3/uL (1.8-7.7) Lymphocytes # (Auto) 0.9 x10^3/uL (1.0-4.8) Monocytes # (Auto) 0.4 x10^3/uL (0.0-1.1) Eosinophils # (Auto) 0.1 x10^3/uL (0.0-0.7) Basophils # (Auto) 0.1 x10^3/uL (0.0-0.2) Sodium Level 138 mmol/L (136-145) Potassium Level 4.5 mmol/L (3.5-5.1) Chloride Level 107 mmol/L (98-107) Carbon Dioxide Level 23 mmol/L (21-32) Anion Gap 8 (6-14) Blood Urea Nitrogen 14 mg/dL (7-20) Creatinine 0.6 mg/dL (0.6-1.0) Estimated GFR (Cockcroft-Gault) 121.8 BUN/Creatinine Ratio 23 (6-20) Glucose Level 120 mg/dL (70-99) Lactic Acid Level 1.1 mmol/L (0.4-2.0) Calcium Level 8.4 mg/dL (8.5-10.1) Total Bilirubin 0.2 mg/dL (0.2-1.0) Aspartate Amino Transf (AST/SGOT) 17 U/L (15-37) Alanine Aminotransferase (ALT/SGPT) 7 U/L (14-59) Alkaline Phosphatase 103 U/L (46-116) Total Protein 7.7 g/dL (6.4-8.2) Albumin 1.9 g/dL (3.4-5.0) Albumin/Globulin Ratio 0.3 (1.0-1.7) Micro Microbiology 04/12/19 Blood Culture - Final, Complete Objective Assessment GNR sepsis - POA 04/12 clinically looking better Line changed 04/14 Fever- better Left eye echymosis - CT neg Weakness Abd pain Ec fisula with increased drainage Plan Plan of Care Discont zyvox/Micafungin today 04/16 Dosed Dapto times one 04/14 Cont Meropenem F/u blood cult and labs d/w lab sherry this am and still nothing more than GNR Appreciate IR d/w nursing ABBY MOTT MD Apr 16, 2019 07:03
[2019-04-16 08:18] LABS: BASO # 0.1 x10^3/uL (0.0-0.2); BASO % 2 % (0-3); EOS # 0.1 x10^3/uL (0.0-0.7); EOS % 3 % (0-3); HEMATOCRIT 24.5 % (36.0-47.0); HEMOGLOBIN 7.9 g/dL (12.0-15.5); LYMPH # 0.9 x10^3/uL (1.0-4.8); LYMPH % 21 % (24-48); MEAN CORPUSCULAR HEMOGLOBIN 27 pg (25-35); MEAN CORPUSCULAR HGB CONC 32 g/dL (31-37); MEAN CORPUSCULAR VOLUME 85 fL (79-100); MONO # 0.4 x10^3/uL (0.0-1.1); MONO % 9 % (0-9); NEUT # 2.8 x10^3/uL (1.8-7.7); NEUT % 65 % (31-73); PLATELET COUNT 330 x10^3/uL (140-400); RED BLOOD COUNT 2.88 x10^6/uL (3.50-5.40); WHITE BLOOD COUNT 4.3 x10^3/uL (4.0-11.0)
[2019-04-16 08:38] LABS: CREATININE 0.6 mg/dL (0.6-1.0); GFR 121.8; MAGNESIUM 2.2 mg/dL (1.8-2.4)
[2019-04-16] MEDS: PANTOPRAZOLE 40 MG TABLET.DR. PO SCH (08:51)
[2019-04-16] MEDS: SERTRALINE 50 MG TABLET. PO SCH (08:51)
[2019-04-16 11:00] VITALS: BP 129/60
[2019-04-16] MEDS: TPN PER PHARMACY MC PRN (11:54)
--- NOTE | 2019-04-16 12:21 | PN ---
DATE: 04/16/2019 SUBJECTIVE: The patient is sitting slightly propped up in bed, in no apparent distress. Nursing staff called me yesterday stating that she seemed to have change in mental status. Her daughter apparently was concerned that she had a potential fall in the toilet last night and that she was not called by nursing staff on the night. Day shift, she found out when she visited her mother and found her with black eye and knee scrapes. The patient denied any fall, but was on the toilet last night. We did actually arrange for her to have a CT scan of the head and we checked her lab work. Her lactic acid was 1.1. Her white cell count was normal at [address] scan was unremarkable and showed that she has mild extracranial soft tissue contusion of the left frontal scalp and overlying the inferior margin of the left orbital ridge. No acute intracranial abnormality. When I saw her this morning, she was sitting comfortably, propped up in bed, in no apparent respiratory distress. She did complain of pain in her abdomen, but denied any nausea or vomiting. Denied any other complaint. She has eaten her breakfast without difficulty this morning. PHYSICAL EXAMINATION: GENERAL: When I examined her, she was pale, somewhat cachectic, but no jaundice, cyanosis, or thyromegaly. No jugular venous distension. No lower limb edema. VITAL SIGNS: Her heart rate was 69, blood pressure 142/59, temperature was 98.6, respiratory rate was 18 and oxygen saturation was 98%. HEAD, EYES, EARS, NOSE AND THROAT: Showed normocephalic, atraumatic. NECK: Supple. HEART: Showed normal first and second heart sounds. No gallop or murmur. CHEST: Clear to auscultation. No crepitation or rhonchi. ABDOMEN: Distended, soft. She has enterocutaneous fistula. NEUROLOGIC: She was awake, alert, responding appropriately. All her cranial nerves intact. She moves extremities without difficulty. She is able to ambulate with a walker with standby assist. Her intake over the last 24 hours was 2500, no output was recorded. LABORATORY DATA: As of this morning, her white cell count was 4300, hemoglobin 7.9, hematocrit 24, MCV 85 and platelet count of 330,000. Serum sodium 140, potassium 5, chloride 110, bicarbonate 24, anion gap of 6, BUN 14, creatinine 0.6, estimated GFR was 121 mL per minute. Her glucose 106, calcium was 8, magnesium was 2.2. Procalcitonin was 4.85. Her prothrombin time was 14.6, INR 1.2. Her urine culture is still pending. The blood culture grew gram-negative rods. The identification and sensitivity is still pending at the time of this dictation. ASSESSMENT: 1. Gram-negative sepsis, weakness and abdominal pain. 2. Enterocutaneous fistula with decreasing drainage. 3. Her tunneled central line was changed successfully. 4. Her blood culture so far grown gram-negative rods. However, the identification and sensitivity is still pending. 5. The patient was followed by the Infectious Disease specialist and her Zyvox and micafungin were discontinued. She continued on meropenem and has received a dose of daptomycin yesterday. JOELLE DYE MD DR: LUZMARIA/jd JOB#: [id number] / [id number]
[2019-04-16 15:00] VITALS: BP 169/96
[2019-04-16 19:40] VITALS: BP 150/75
[2019-04-16] MEDS ORDERED: DEXTROSE 70% IV SCH ×10 (22:00)
[2019-04-16] MEDS ORDERED: TOTAL PARENTERAL NUTRITION IV SCH ×10 (22:00)
[2019-04-16] MEDS ORDERED: AMINO ACID IV SCH ×10 (22:00)
[2019-04-16] MEDS ORDERED: [UNRECOGNIZED DRUG - OTHER] IV SCH ×10 (22:00)
[2019-04-16 23:45] VITALS: BP 145/78
[2019-04-17] MEDS: MEROPENEM 500 MG in IV NORMAL SALINE 50ML 50 ML IV SCH ×2 (00:17→06:13)
[2019-04-17 03:29] VITALS: BP 176/97
[2019-04-17] MEDS: HYDROmorphone 2 MG/ML VIAL IV PRN ×4 (06:13→20:55)
[2019-04-17 06:53] LABS: BASO # 0.1 x10^3/uL (0.0-0.2); BASO % 4 % (0-3); EOS # 0.2 x10^3/uL (0.0-0.7); EOS % 5 % (0-3); HEMATOCRIT 25.5 % (36.0-47.0); HEMOGLOBIN 8.3 g/dL (12.0-15.5); LYMPH # 1.1 x10^3/uL (1.0-4.8); LYMPH % 30 % (24-48); MEAN CORPUSCULAR HEMOGLOBIN 28 pg (25-35); MEAN CORPUSCULAR HGB CONC 33 g/dL (31-37); MEAN CORPUSCULAR VOLUME 85 fL (79-100); MONO # 0.3 x10^3/uL (0.0-1.1); MONO % 9 % (0-9); NEUT # 1.9 x10^3/uL (1.8-7.7); NEUT % 52 % (31-73); PLATELET COUNT 358 x10^3/uL (140-400); RED BLOOD COUNT 2.99 x10^6/uL (3.50-5.40); WHITE BLOOD COUNT 3.6 x10^3/uL (4.0-11.0)
[2019-04-17 07:00] VITALS: BP 156/84
[2019-04-17 07:12] LABS: CALCIUM 8.6 mg/dL (8.5-10.1); CREATININE 0.5 mg/dL (0.6-1.0); GFR 150.3; POTASSIUM 4.8 mmol/L (3.5-5.1)
[2019-04-17 09:02] LABS: % BANDS 2 % (0-9); % EOS 2 % (0-5); % LYMPHS 23 % (24-48); % MONOS 10 % (0-10); % SEGS 63 % (35-66); NUCLEATED RBC 1; PLT ESTIMATE ADEQUATE (ADEQUATE)
--- NOTE | 2019-04-17 10:04 | PDOC ---
Infectious Disease Note Subjective Subjective Feeling well No F/C/S/SOA/rash. No pain at new line site. No visual changes denies vomiting Abd drainage is less ROS ROS no n/v/ Vital Sign Vital Signs Vital Signs Date Time Temp Pulse Resp B/P (MAP) Pulse Ox O2 Delivery O2 Flow Rate FiO2 04/17/19 08:29 99 Room Air 04/17/19 07:00 97.9 78 18 156/84 (108) 97.9 Physical Exam PHYSICAL EXAM CONSTITUTIONAL: She is pleasant. She is cooperative. She is in no acute distress. She is in bed but a little slower to respond but did smile HEENT: Pupils are equal and reactive. EOMI. She has normal conjunctivae. Left eye echymosis stabel. Oral cavity, pharynx is clear without signs of any thrush. NECK: Supple, no JVD. LUNGS: Clear to auscultation bilaterally. HEART: S1, S2. Right-sided chest PICC line without signs of any complications. There is no streaking or swelling. ABDOMEN: Enterocutaneous fistula with a small hole. She has had some minimal excoriation. She has some cobblestoning of the area around it. There are some small areas about the area with pinpoint openings, but there is no gross pus or fluid collection. No gross fluctuance. EXTREMITIES: Without clubbing or cyanosis. No gross edema. SKIN: Warm to touch without signs of rash. NEUROLOGIC: She is alert and oriented to me/[facility] nonfocal. PSYCHIATRIC: Affect is pleasant Labs Lab Laboratory Tests Test 04/17/19 05:50 White Blood Count 3.6 x10^3/uL (4.0-11.0) Red Blood Count 2.99 x10^6/uL (3.50-5.40) Hemoglobin 8.3 g/dL (12.0-15.5) Hematocrit 25.5 % (36.0-47.0) Mean Corpuscular Volume 85 fL (79-100) Mean Corpuscular Hemoglobin 28 pg (25-35) Mean Corpuscular Hemoglobin Concent 33 g/dL (31-37) Red Cell Distribution Width 19.0 % (11.5-14.5) Platelet Count 358 x10^3/uL (140-400) Neutrophils (%) (Auto) 52 % (31-73) Lymphocytes (%) (Auto) 30 % (24-48) Monocytes (%) (Auto) 9 % (0-9) Eosinophils (%) (Auto) 5 % (0-3) Basophils (%) (Auto) 4 % (0-3) Neutrophils # (Auto) 1.9 x10^3/uL (1.8-7.7) Lymphocytes # (Auto) 1.1 x10^3/uL (1.0-4.8) Monocytes # (Auto) 0.3 x10^3/uL (0.0-1.1) Eosinophils # (Auto) 0.2 x10^3/uL (0.0-0.7) Basophils # (Auto) 0.1 x10^3/uL (0.0-0.2) Segmented Neutrophils % 63 % (35-66) Band Neutrophils % 2 % (0-9) Lymphocytes % 23 % (24-48) Monocytes % 10 % (0-10) Eosinophils % 2 % (0-5) Nucleated Red Blood Cells 1 Platelet Estimate Adequate (ADEQUATE) Sodium Level 141 mmol/L (136-145) Potassium Level 4.8 mmol/L (3.5-5.1) Chloride Level 110 mmol/L (98-107) Carbon Dioxide Level 24 mmol/L (21-32) Anion Gap 7 (6-14) Blood Urea Nitrogen 13 mg/dL (7-20) Creatinine 0.5 mg/dL (0.6-1.0) Estimated GFR (Cockcroft-Gault) 150.3 Glucose Level 91 mg/dL (70-99) Calcium Level 8.6 mg/dL (8.5-10.1) Magnesium Level 2.1 mg/dL (1.8-2.4) Micro BLOOD CULTURE LC Final Preliminary report Final report BLD CULT RESULT 1 Final Gram negative rods Escherichia coli Performed at: DA - [facility] [address] [place] [address] [address], [place], [place] [id number] Practice Assistant: HU Good MD, Phone: [phone] ANTIMICROBIAL SUSCEPTIBILITY Final Comment S = Susceptible; I = Intermediate; R = Resistant P = Positive; N = Negative MICS are expressed in micrograms per mL Antibiotic RSLT#1 RSLT#2 RSLT#3 RSLT#4 Amoxicillin/Clavulanic Acid S<=2 Ampicillin S<=2 Cefepime S<=0.12 Ceftriaxone S<=0.25 Cefuroxime S =4 Ciprofloxacin S<=0.25 Ertapenem S<=0.12 Gentamicin S<=1 Imipenem S<=0.25 Levofloxacin S<=0.12 Meropenem S<=0.25 Nitrofurantoin S<=16 Piperacillin/Tazobactam S<=4 Tetracycline S<=1 Tobramycin S<=1 Trimethoprim/Sulfa S<=20 Performed at: DA - [facility] [address] [facility] [address], [place], [place] [id number] Practice Assistant: HU Good MD, Phone: [phone] Objective Assessment GNR sepsis - POA 04/12 E coli clinically looking better Line changed 04/14 Fever- better Left eye echymosis after fall - CT neg Weakness Abd pain Ec fisula Plan Plan of Care change meroepenem to rocephine repeat bc JOSSY TATUM MD Apr 17, 2019 10:04
[2019-04-17] MEDS: SERTRALINE 50 MG TABLET. PO SCH (10:39)
[2019-04-17] MEDS: PANTOPRAZOLE 40 MG TABLET.DR. PO SCH (10:39)
[2019-04-17 11:00] VITALS: BP 146/80
--- NOTE | 2019-04-17 11:06 | PDOC ---
PROGRESS NOTES Subjective Subjective feels better. bp is high and has some foot edema. lab reviewed. Objective Objective Vital Signs Date Time Temp Pulse Resp B/P (MAP) Pulse Ox O2 Delivery O2 Flow Rate FiO2 04/17/19 10:39 99 Room Air 04/17/19 07:00 97.9 78 18 156/84 (108) 97.9 04/14/19 11:08 2.0 Intake and Output 04/17/19 07:00 Intake Total 300 ml Balance 300 ml Intake Oral 300 ml # Voids 6 # Bowel Movements 5 Physical Exam Abdomen: Soft, Other (EC fistula) Heart: Regular rate, Normal S1, Normal S2 Extremities: Other (1 plus bipedal edema) General: Alert HEENT: Other (periorbital ecchymosis left eye) Lungs: Clear to auscultation Neuro: Normal speech Psych/Mental Status: Mental status NL Skin: No rashes Assessment Assessment Problems1. E. coli bacteremia and Sepsis. suspect PICC line sepsis. PICC exchanged last week 2. 3. Enterocutaneous fistula. 4. Enterovesical fistula. Urine cultures will not be too helpful because of an enterovesical fistula. 5. Severe hypokalemia.treated 6. Hypertension. 7. Anemia of chronic disease. Medical Problems: (1) Enterocutaneous fistula Status: Acute Plan Plan of Care continue iv rocephin repeat blood cultures lasix iv times 1 start amlodipine continue TPN lab tomorrow up as tolerated Comment Review of Relevant I have reviewed the following items lucila (where applicable) has been applied. Labs Laboratory Tests Test 04/15/19 16:29 04/16/19 07:35 04/17/19 05:50 White Blood Count 5.3 x10^3/uL (4.0-11.0) 4.3 x10^3/uL (4.0-11.0) 3.6 x10^3/uL (4.0-11.0) Red Blood Count 3.38 x10^6/uL (3.50-5.40) 2.88 x10^6/uL (3.50-5.40) 2.99 x10^6/uL (3.50-5.40) Hemoglobin 9.3 g/dL (12.0-15.5) 7.9 g/dL (12.0-15.5) 8.3 g/dL (12.0-15.5) Hematocrit 28.6 % (36.0-47.0) 24.5 % (36.0-47.0) 25.5 % (36.0-47.0) Mean Corpuscular Volume 85 fL (79-100) 85 fL (79-100) 85 fL (79-100) Mean Corpuscular Hemoglobin 27 pg (25-35) 27 pg (25-35) 28 pg (25-35) Mean Corpuscular Hemoglobin Concent 32 g/dL (31-37) 32 g/dL (31-37) 33 g/dL (31-37) Red Cell Distribution Width 19.1 % (11.5-14.5) 19.0 % (11.5-14.5) 19.0 % (11.5-14.5) Platelet Count 397 x10^3/uL (140-400) 330 x10^3/uL (140-400) 358 x10^3/uL (140-400) Neutrophils (%) (Auto) 72 % (31-73) 65 % (31-73) 52 % (31-73) Lymphocytes (%) (Auto) 17 % (24-48) 21 % (24-48) 30 % (24-48) Monocytes (%) (Auto) 7 % (0-9) 9 % (0-9) 9 % (0-9) Eosinophils (%) (Auto) 3 % (0-3) 3 % (0-3) 5 % (0-3) Basophils (%) (Auto) 1 % (0-3) 2 % (0-3) 4 % (0-3) Neutrophils # (Auto) 3.8 x10^3/uL (1.8-7.7) 2.8 x10^3/uL (1.8-7.7) 1.9 x10^3/uL (1.8-7.7) Lymphocytes # (Auto) 0.9 x10^3/uL (1.0-4.8) 0.9 x10^3/uL (1.0-4.8) 1.1 x10^3/uL (1.0-4.8) Monocytes # (Auto) 0.4 x10^3/uL (0.0-1.1) 0.4 x10^3/uL (0.0-1.1) 0.3 x10^3/uL (0.0-1.1) Eosinophils # (Auto) 0.1 x10^3/uL (0.0-0.7) 0.1 x10^3/uL (0.0-0.7) 0.2 x10^3/uL (0.0-0.7) Basophils # (Auto) 0.1 x10^3/uL (0.0-0.2) 0.1 x10^3/uL (0.0-0.2) 0.1 x10^3/uL (0.0-0.2) Sodium Level 138 mmol/L (136-145) 140 mmol/L (136-145) 141 mmol/L (136-145) Potassium Level 4.5 mmol/L (3.5-5.1) 5.0 mmol/L (3.5-5.1) 4.8 mmol/L (3.5-5.1) Chloride Level 107 mmol/L (98-107) 110 mmol/L (98-107) 110 mmol/L (98-107) Carbon Dioxide Level 23 mmol/L (21-32) 24 mmol/L (21-32) 24 mmol/L (21-32) Anion Gap 8 (6-14) 6 (6-14) 7 (6-14) Blood Urea Nitrogen 14 mg/dL (7-20) 14 mg/dL (7-20) 13 mg/dL (7-20) Creatinine 0.6 mg/dL (0.6-1.0) 0.6 mg/dL (0.6-1.0) 0.5 mg/dL (0.6-1.0) Estimated GFR (Cockcroft-Gault) 121.8 121.8 150.3 BUN/Creatinine Ratio 23 (6-20) Glucose Level 120 mg/dL (70-99) 106 mg/dL (70-99) 91 mg/dL (70-99) Lactic Acid Level 1.1 mmol/L (0.4-2.0) Calcium Level 8.4 mg/dL (8.5-10.1) 8.0 mg/dL (8.5-10.1) 8.6 mg/dL (8.5-10.1) Total Bilirubin 0.2 mg/dL (0.2-1.0) Aspartate Amino Transf (AST/SGOT) 17 U/L (15-37) Alanine Aminotransferase (ALT/SGPT) 7 U/L (14-59) Alkaline Phosphatase 103 U/L (46-116) Total Protein 7.7 g/dL (6.4-8.2) Albumin 1.9 g/dL (3.4-5.0) Albumin/Globulin Ratio 0.3 (1.0-1.7) Procalcitonin 4.85 ng/mL (0.00-0.10) Magnesium Level 2.2 mg/dL (1.8-2.4) 2.1 mg/dL (1.8-2.4) Segmented Neutrophils % 63 % (35-66) Band Neutrophils % 2 % (0-9) Lymphocytes % 23 % (24-48) Monocytes % 10 % (0-10) Eosinophils % 2 % (0-5) Nucleated Red Blood Cells 1 Platelet Estimate Adequate (ADEQUATE) Laboratory Tests Test 04/17/19 05:50 White Blood Count 3.6 x10^3/uL (4.0-11.0) Red Blood Count 2.99 x10^6/uL (3.50-5.40) Hemoglobin 8.3 g/dL (12.0-15.5) Hematocrit 25.5 % (36.0-47.0) Mean Corpuscular Volume 85 fL (79-100) Mean Corpuscular Hemoglobin 28 pg (25-35) Mean Corpuscular Hemoglobin Concent 33 g/dL (31-37) Red Cell Distribution Width 19.0 % (11.5-14.5) Platelet Count 358 x10^3/uL (140-400) Neutrophils (%) (Auto) 52 % (31-73) Lymphocytes (%) (Auto) 30 % (24-48) Monocytes (%) (Auto) 9 % (0-9) Eosinophils (%) (Auto) 5 % (0-3) Basophils (%) (Auto) 4 % (0-3) Neutrophils # (Auto) 1.9 x10^3/uL (1.8-7.7) Lymphocytes # (Auto) 1.1 x10^3/uL (1.0-4.8) Monocytes # (Auto) 0.3 x10^3/uL (0.0-1.1) Eosinophils # (Auto) 0.2 x10^3/uL (0.0-0.7) Basophils # (Auto) 0.1 x10^3/uL (0.0-0.2) Segmented Neutrophils % 63 % (35-66) Band Neutrophils % 2 % (0-9) Lymphocytes % 23 % (24-48) Monocytes % 10 % (0-10) Eosinophils % 2 % (0-5) Nucleated Red Blood Cells 1 Platelet Estimate Adequate (ADEQUATE) Sodium Level 141 mmol/L (136-145) Potassium Level 4.8 mmol/L (3.5-5.1) Chloride Level 110 mmol/L (98-107) Carbon Dioxide Level 24 mmol/L (21-32) Anion Gap 7 (6-14) Blood Urea Nitrogen 13 mg/dL (7-20) Creatinine 0.5 mg/dL (0.6-1.0) Estimated GFR (Cockcroft-Gault) 150.3 Glucose Level 91 mg/dL (70-99) Calcium Level 8.6 mg/dL (8.5-10.1) Magnesium Level 2.1 mg/dL (1.8-2.4) Microbiology 04/14/19 Aerobic Culture - Preliminary, Resulted 04/14/19 Aerobic Culture Result 1 (ROYA) - Preliminary, Resulted 04/14/19 Gram Stain - Final, Resulted 04/14/19 Gram Stain Result 1 (ROYA) - Final, Resulted 04/14/19 Gram Stain Result 2 (ROYA) - Final, Resulted 04/12/19 Blood Culture - Final, Complete 04/12/19 Blood Culture Result 1 (ROYA) - Final, Complete 04/12/19 Antimicrobic Susceptibility - Final, Complete Medications Current Medications Hydromorphone HCl (Dilaudid) 1 mg PRN Q2HR PRN IV/SQ PAIN GREATER THAN 3/10 Last administered on 04/12/19at 22:12; Start 04/12/19 at 20:45; Stop 04/13/19 at 08:11; Status DC Ondansetron HCl (Zofran) 4 mg 1X ONCE IV Last administered on 04/12/19at 21:02; Start 04/12/19 at 20:45; Stop 04/12/19 at 20:46; Status DC Sodium Chloride 1,000 ml @ 1,000 mls/hr 1X ONCE IV Last administered on 04/12/19at 20:56; Start 04/12/19 at 20:45; Stop 04/12/19 at 21:44; Status DC Piperacillin Sod/ Tazobactam Sod 3.375 gm/Sodium Chloride 50 ml @ 100 mls/hr 1X ONCE IV Last administered on 04/12/19at 22:30; Start 04/12/19 at 22:15; Stop 04/12/19 at 22:44; Status DC Linezolid/Dextrose 300 ml @ 300 mls/hr Q12HR IV Last administered on 04/15/19at 21:06; Start 04/13/19 at 09:00; Stop 04/16/19 at 07:38; Status DC Ondansetron HCl (Zofran) 4 mg PRN Q8HRS PRN IV NAUSEA/VOMITING Last administered on 04/13/19at 11:02; Start 04/12/19 at 22:15; Stop 04/13/19 at 22:14; Status DC Sodium Chloride 1,000 ml @ 100 mls/hr Q10H IV Last administered on 04/12/19at 23:23; Start 04/12/19 at 22:15; Stop 04/13/19 at 08:14; Status DC Linezolid/Dextrose 300 ml @ 300 mls/hr 1X ONCE IV Last administered on 04/12/19at 23:24; Start 04/12/19 at 22:30; Stop 04/12/19 at 23:29; Status DC Potassium Chloride (Klor-Con) 60 meq 1X ONCE PO Last administered on 04/12/19at 23:29; Start 04/12/19 at 23:00; Stop 04/12/19 at 23:01; Status DC Influenza Virus Vaccine Quadrival (Afluria Quad 2019-20 (3yr Up) Syringe) 0.5 ml ONCE ONCE VAX IM Last administered on 04/14/19at 12:35; Start 04/13/19 at 09:00; Stop 04/13/19 at 09:01; Status DC Hydromorphone HCl (Dilaudid) 2 mg PRN Q4HRS PRN IV PAIN Last administered on 04/17/19at 10:39; Start 04/13/19 at 05:15 Amlodipine Besylate (Norvasc) 5 mg DAILY PO ; Start 04/13/19 at 09:00; Stop 04/13/19 at 12:07; Status DC Hydromorphone HCl (Dilaudid) 2 mg PRN QID PRN PO MODERATE - SEVERE PAIN; Start 04/13/19 at 05:30 Acetaminophen (Tylenol) 650 mg PRN Q6HRS PRN PO MILD PAIN / TEMP; Start 04/13/19 at 05:30 Sertraline HCl (Zoloft) 50 mg DAILY PO Last administered on 04/17/19at 10:39; Start 04/13/19 at 09:00 Lorazepam (Ativan) 0.5 mg PRN Q6HRS PRN PO ANXIETY; Start 04/13/19 at 05:30 Zolpidem Tartrate (Ambien) 5 mg PRN QHS PRN PO INSOMNIA Last administered on 06/14/18at 21:32; Start 04/13/19 at 05:30 Ondansetron HCl (Zofran Odt) 4 mg PRN Q8HRS PRN PO NAUSEA/VOMITING; Start 04/13/19 at 05:30 Pantoprazole Sodium (Protonix) 40 mg DAILYAC PO Last administered on 04/17/19at 10:39; Start 04/13/19 at 07:30 Meropenem 500 mg/ Sodium Chloride 50 ml @ 100 mls/hr Q6HRS IV Last administered on 04/17/19at 06:13; Start 04/13/19 at 08:30; Stop 04/17/19 at 10:05; Status DC Micafungin Sodium 100 mg/Dextrose 100 ml @ 100 mls/hr Q24H IV Last administered on 04/15/19at 08:41; Start 04/13/19 at 09:00; Stop 04/16/19 at 07:38; Status DC Daptomycin 280 mg/ Sodium Chloride 50 ml @ 100 mls/hr ONCE ONCE IV Last administered on 04/13/19at 08:48; Start 04/13/19 at 08:30; Stop 04/13/19 at 08:59; Status DC Ondansetron HCl (Zofran) 4 mg 1X ONCE IVP Last administered on 04/13/19at 11:00; Start 04/13/19 at 11:00; Stop 04/13/19 at 11:01; Status DC Potassium Chloride/Dextrose/ Sod Cl 1,000 ml @ 75 mls/hr [id number] IV Last administered on 04/13/19at 12:27; Start 04/13/19 at 12:00; Stop 04/13/19 at 21:59; Status DC Potassium Chloride/Water 50 ml @ 25 mls/hr Q2H IV Last administered on 04/13/19at 17:03; Start 04/13/19 at 13:00; Stop 04/13/19 at 16:59; Status DC Ondansetron HCl (Zofran) 4 mg PRN Q6HRS PRN IVP NAUSEA/VOMITING Last administered on 04/14/19at 21:27; Start 04/13/19 at 12:00 Info (Tpn Per Pharmacy) 1 each PRN DAILY PRN MC SEE COMMENTS Last administered on 04/16/19at 11:54; Start 04/13/19 at 13:00 Sodium Chloride 200 meq/Potassium Chloride 60 meq/ Potassium Phosphate 13.6 mmol/Magnesium Sulfate 15 meq/ Calcium Gluconate 10 meq/ Multivitamins 10 ml/Chromium/ Copper/Manganese/ Seleni/Zn 1 ml/ Total Parenteral Nutrition/Amino Acids/Dextrose/ Fat Emulsion Intravenous 1,920 ml @ 80 mls/hr TPN CONT IV Last administered on 04/13/19at 22:04; Start 04/13/19 at 22:00; Stop 04/14/19 at 21:59; Status DC Lidocaine/ Epinephrine (LIDOCAINE 1%-EPI 1:100,000 Multi-Dose) 20 ml STK-MED ONCE .ROUTE ; Start 04/14/19 at 09:50; Stop 04/14/19 at 09:50; Status DC Midazolam HCl (Versed) 2 mg STK-MED ONCE .ROUTE ; Start 04/14/19 at 10:28; Stop 04/14/19 at 10:29; Status DC Fentanyl Citrate (Fentanyl 2ml Vial) 100 mcg STK-MED ONCE .ROUTE ; Start 04/14/19 at 10:29; Stop 04/14/19 at 10:29; Status DC Midazolam HCl (Versed) 2 mg 1X ONCE IV Last administered on 04/14/19at 11:08; Start 04/14/19 at 11:00; Stop 04/14/19 at 11:01; Status DC Fentanyl Citrate (Fentanyl 2ml Vial) 100 mcg 1X ONCE IV Last administered on 04/14/19at 11:07; Start 04/14/19 at 11:00; Stop 04/14/19 at 11:01; Status DC Lidocaine/ Epinephrine (LIDOCAINE 1%-EPI 1:100,000 Multi-Dose) 20 ml 1X ONCE INJ Last administered on 04/14/19at 11:05; Start 04/14/19 at 11:00; Stop 04/14/19 at 11:01; Status DC Magnesium Sulfate 100 ml @ 25 mls/hr 1X ONCE IV Last administered on 04/14/19a t 13:09; Start 04/14/19 at 13:00; Stop 04/14/19 at 16:59; Status DC Sodium Chloride 200 meq/Potassium Chloride 60 meq/ Potassium Phosphate 13.6 mmol/Magnesium Sulfate 20 meq/ Calcium Gluconate 10 meq/ Multivitamins 10 ml/Chromium/ Copper/Manganese/ Seleni/Zn 1 ml/ Total Parenteral Nutrition/Amino Acids/Dextrose/ Fat Emulsion Intravenous 1,920 ml @ 80 mls/hr TPN CONT IV Last administered on 04/15/19at 01:46; Start 04/14/19 at 22:00; Stop 04/15/19 at 21:59; Status DC Lidocaine HCl (Xylocaine 2% Topical 5gm Tube) 1 sang PRN Q2HR PRN TP pain Last administered on 04/15/19at 05:39; Start 04/15/19 at 01:30 Sodium Chloride 200 meq/Potassium Chloride 60 meq/ Potassium Phosphate 13.6 mmol/Magnesium Sulfate 20 meq/ Calcium Gluconate 10 meq/ Multivitamins 10 ml/Chromium/ Copper/Manganese/ Seleni/Zn 1 ml/ Total Parenteral Nutrition/Amino Acids/Dextrose/ Fat Emulsion Intravenous 1,920 ml @ 80 mls/hr TPN CONT IV Last administered on 04/15/19at 21:58; Start 04/15/19 at 22:00; Stop 04/16/19 at 21:59; Status DC Sodium Chloride 200 meq/Potassium Chloride 20 meq/ Potassium Phosphate 13.6 mmol/Magnesium Sulfate 20 meq/ Calcium Gluconate 10 meq/ Multivitamins 10 ml/Chromium/ Copper/Manganese/ Seleni/Zn 1 ml/ Total Parenteral Nutrition/Amino Acids/Dextrose/ Fat Emulsion Intravenous 1,920 ml @ 80 mls/hr TPN CONT IV Last administered on 04/16/19at 21:28; Start 04/16/19 at 22:00; Stop 04/17/19 at 21:59 Ceftriaxone Sodium (Rocephin) 1 gm Q24H IVP ; Start 04/17/19 at 11:00 Active Scripts Active Tylenol (Acetaminophen) 325 Mg Tablet 650 Mg PO PRN Q6HRS PRN Amlodipine Besylate 5 Mg Tablet 5 Mg PO DAILY [Pantoprazole] 40 MG Tablet.dr 40 Mg PO DAILYAC 30 Days Zinc Oxide 56.7 Gm Oint...g. 1 Sang TP BID Ambien (Zolpidem Tartrate) 5 Mg Tablet 5 Mg PO PRN QHS PRN 30 Days [Tpn Per Pharmacy] 1 EACH Each 1 Each MC PRN DAILY PRN TPN at 85cc/hour Sertraline Hcl 50 Mg Tablet 50 Mg PO DAILY 30 Days Lidocaine 35.44 Gm Oint...g. 1 Sang TP BID Reported Zofran Odt (Ondansetron) 4 Mg Tab.rapdis 1 Tab SL PRN Q8HRS PRN Zinc Oxide 56.7 Gm Oint...g. 56.7 Gm TP PRN BID Dilaudid (Hydromorphone Hcl) 2 Mg Tablet 1 Tab PO PRN QID PRN Lorazepam 0.5 Mg Tablet 0.5 Mg PO Q6HRS PRN Vitals/I & O Vital Sign - Last 24 Hours 04/16/19 04/16/19 04/16/19 04/16/19 11:40 12:10 15:00 18:07 Temp 98.5 98.5 Pulse 92 Resp 18 19 B/P (MAP) 169/96 (120) Pulse Ox 98 98 98 98 O2 Delivery Room Air Room Air Room Air Room Air 04/16/19 04/16/19 04/16/19 04/16/19 18:37 19:40 20:00 23:45 Temp 98.3 97.9 98.3 97.9 Pulse 77 79 Resp 16 16 B/P (MAP) 150/75 (100) 145/78 (100) Pulse Ox 98 99 99 O2 Delivery Room Air Room Air Room Air Room Air 04/17/19 04/17/19 04/17/1904/17/19 03:29 07:00 08:29 10:39 Temp 98.4 97.9 98.4 97.9 Pulse 81 78 Resp 16 18 B/P (MAP) 176/97 (123) 156/84 (108) Pulse Ox 98 99 99 99 O2 Delivery Room Air Room Air Room Air Room Air Intake and Output 04/16/19 04/16/19 04/17/19 15:00 23:00 07:00 Intake Total 300 ml Balance 300 ml Nutrition Consultation Dietary Evaluation: Recommendations by RD: PPN/TPN Comments: REC continue TPN Expected Outcomes/Goals: to meet >75% est nutr needs via TPN Malnutrition Findings: Body Fat Depletion (Non Severe: Mild Depletion Weight Status: Underweight BENITA LUTZ MD Apr 17, 2019 11:06
--- NOTE | 2019-04-17 11:19 | NUR ---
SW following pt. Pt is a transfer from 4th floor. Plan is [facility] for TPN. SW will continue to follow.
[2019-04-17] MEDS ORDERED: FUROSEMIDE 20 MG/2 ML VIAL. IVP ONE (11:30)
[2019-04-17] MEDS: amLODIPine BESYLATE 5 MG TABLET PO SCH (12:27)
[2019-04-17] MEDS: cefTRIAXone IV Push 1 GM VIAL. IVP SCH (12:28)
[2019-04-17] MEDS: TPN PER PHARMACY MC PRN (13:37)
--- NOTE | 2019-04-17 13:40 | NUR ---
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 TPN started [employer] B:Pertinent PMH: Long-term TPN LABS: Sodium: 141 Potassium: 4.8 Chloride: 110 Calcium: 8.6 Corrected Calcium: 10.28 Magnesium: 2.1 CO2: 24 SCr: 0.5 Glucose: 91 Albumin: 1.9 AST: 17 ALT: 7 TPN FORMULA: TPN TYPE: Central Continuous AMINO ACIDS: 90 gm DEXTROSE: 285 gm LIPIDS: 35 gm SODIUM CHLORIDE: 200 mEq SODIUM ACETATE: - mEq SODIUM PHOSPHATE: - mmol POTASSIUM CHLORIDE: 20 mEq POTASSIUM ACETATE: - mEq POTASSIUM PHOSPHATE: 13.6 mmol MAGNESIUM: 20 mEq CALCIUM: 10 mEq INSULIN: - units MULTIPLE VITAMIN: 10 ml TRACE ELEMENTS: 1 ml(s) TPN PLAN: 04/17 CONT SAME R: Continue TPN Will monitor electrolytes, glucose, and tolerance to TPN. ROC ROBLES [facility], 04/17/19 1891
[2019-04-17 15:00] VITALS: BP 144/82
--- NOTE | 2019-04-17 15:44 | PDOC ---
G I PROGRESS NOTE Subjective No new GI complaints. Thinks fistulae drainage less today. Objective Note fell. Others' notes reviewed. Physical Exam [place] left eye. Lungs clear. RRR Abdomen soft with scars/fistulae Review of Relevant I have reviewed the following items lucila (where applicable) has been applied. Labs Laboratory Tests Test 04/15/19 16:29 04/16/19 07:35 04/17/19 05:50 White Blood Count 5.3 x10^3/uL (4.0-11.0) 4.3 x10^3/uL (4.0-11.0) 3.6 x10^3/uL (4.0-11.0) Red Blood Count 3.38 x10^6/uL (3.50-5.40) 2.88 x10^6/uL (3.50-5.40) 2.99 x10^6/uL (3.50-5.40) Hemoglobin 9.3 g/dL (12.0-15.5) 7.9 g/dL (12.0-15.5) 8.3 g/dL (12.0-15.5) Hematocrit 28.6 % (36.0-47.0) 24.5 % (36.0-47.0) 25.5 % (36.0-47.0) Mean Corpuscular Volume 85 fL (79-100) 85 fL (79-100) 85 fL (79-100) Mean Corpuscular Hemoglobin 27 pg (25-35) 27 pg (25-35) 28 pg (25-35) Mean Corpuscular Hemoglobin Concent 32 g/dL (31-37) 32 g/dL (31-37) 33 g/dL (31-37) Red Cell Distribution Width 19.1 % (11.5-14.5) 19.0 % (11.5-14.5) 19.0 % (11.5-14.5) Platelet Count 397 x10^3/uL (140-400) 330 x10^3/uL (140-400) 358 x10^3/uL (140-400) Neutrophils (%) (Auto) 72 % (31-73) 65 % (31-73) 52 % (31-73) Lymphocytes (%) (Auto) 17 % (24-48) 21 % (24-48) 30 % (24-48) Monocytes (%) (Auto) 7 % (0-9) 9 % (0-9) 9 % (0-9) Eosinophils (%) (Auto) 3 % (0-3) 3 % (0-3) 5 % (0-3) Basophils (%) (Auto) 1 % (0-3) 2 % (0-3) 4 % (0-3) Neutrophils # (Auto) 3.8 x10^3/uL (1.8-7.7) 2.8 x10^3/uL (1.8-7.7) 1.9 x10^3/uL (1.8-7.7) Lymphocytes # (Auto) 0.9 x10^3/uL (1.0-4.8) 0.9 x10^3/uL (1.0-4.8) 1.1 x10^3/uL (1.0-4.8) Monocytes # (Auto) 0.4 x10^3/uL (0.0-1.1) 0.4 x10^3/uL (0.0-1.1) 0.3 x10^3/uL (0.0-1.1) Eosinophils # (Auto) 0.1 x10^3/uL (0.0-0.7) 0.1 x10^3/uL (0.0-0.7) 0.2 x10^3/uL (0.0-0.7) Basophils # (Auto) 0.1 x10^3/uL (0.0-0.2) 0.1 x10^3/uL (0.0-0.2) 0.1 x10^3/uL (0.0-0.2) Sodium Level 138 mmol/L (136-145) 140 mmol/L (136-145) 141 mmol/L (136-145) Potassium Level 4.5 mmol/L (3.5-5.1) 5.0 mmol/L (3.5-5.1) 4.8 mmol/L (3.5-5.1) Chloride Level 107 mmol/L (98-107) 110 mmol/L (98-107) 110 mmol/L (98-107) Carbon Dioxide Level 23 mmol/L (21-32) 24 mmol/L (21-32) 24 mmol/L (21-32) Anion Gap 8 (6-14) 6 (6-14) 7 (6-14) Blood Urea Nitrogen 14 mg/dL (7-20) 14 mg/dL (7-20) 13 mg/dL (7-20) Creatinine 0.6 mg/dL (0.6-1.0) 0.6 mg/dL (0.6-1.0) 0.5 mg/dL (0.6-1.0) Estimated GFR (Cockcroft-Gault) 121.8 121.8 150.3 BUN/Creatinine Ratio 23 (6-20) Glucose Level 120 mg/dL (70-99) 106 mg/dL (70-99) 91 mg/dL (70-99) Lactic Acid Level 1.1 mmol/L (0.4-2.0) Calcium Level 8.4 mg/dL (8.5-10.1) 8.0 mg/dL (8.5-10.1) 8.6 mg/dL (8.5-10.1) Total Bilirubin 0.2 mg/dL (0.2-1.0) Aspartate Amino Transf (AST/SGOT) 17 U/L (15-37) Alanine Aminotransferase (ALT/SGPT) 7 U/L (14-59) Alkaline Phosphatase 103 U/L (46-116) Total Protein 7.7 g/dL (6.4-8.2) Albumin 1.9 g/dL (3.4-5.0) Albumin/Globulin Ratio 0.3 (1.0-1.7) Procalcitonin 4.85 ng/mL (0.00-0.10) Magnesium Level 2.2 mg/dL (1.8-2.4) 2.1 mg/dL (1.8-2.4) Segmented Neutrophils % 63 % (35-66) Band Neutrophils % 2 % (0-9) Lymphocytes % 23 % (24-48) Monocytes % 10 % (0-10) Eosinophils % 2 % (0-5) Nucleated Red Blood Cells 1 Platelet Estimate Adequate (ADEQUATE) Laboratory Tests Test 04/17/19 05:50 White Blood Count 3.6 x10^3/uL (4.0-11.0) Red Blood Count 2.99 x10^6/uL (3.50-5.40) Hemoglobin 8.3 g/dL (12.0-15.5) Hematocrit 25.5 % (36.0-47.0) Mean Corpuscular Volume 85 fL (79-100) Mean Corpuscular Hemoglobin 28 pg (25-35) Mean Corpuscular Hemoglobin Concent 33 g/dL (31-37) Red Cell Distribution Width 19.0 % (11.5-14.5) Platelet Count 358 x10^3/uL (140-400) Neutrophils (%) (Auto) 52 % (31-73) Lymphocytes (%) (Auto) 30 % (24-48) Monocytes (%) (Auto) 9 % (0-9) Eosinophils (%) (Auto) 5 % (0-3) Basophils (%) (Auto) 4 % (0-3) Neutrophils # (Auto) 1.9 x10^3/uL (1.8-7.7) Lymphocytes # (Auto) 1.1 x10^3/uL (1.0-4.8) Monocytes # (Auto) 0.3 x10^3/uL (0.0-1.1) Eosinophils # (Auto) 0.2 x10^3/uL (0.0-0.7) Basophils # (Auto) 0.1 x10^3/uL (0.0-0.2) Segmented Neutrophils % 63 % (35-66) Band Neutrophils % 2 % (0-9) Lymphocytes % 23 % (24-48) Monocytes % 10 % (0-10) Eosinophils % 2 % (0-5) Nucleated Red Blood Cells 1 Platelet Estimate Adequate (ADEQUATE) Sodium Level 141 mmol/L (136-145) Potassium Level 4.8 mmol/L (3.5-5.1) Chloride Level 110 mmol/L (98-107) Carbon Dioxide Level 24 mmol/L (21-32) Anion Gap 7 (6-14) Blood Urea Nitrogen 13 mg/dL (7-20) Creatinine 0.5 mg/dL (0.6-1.0) Estimated GFR (Cockcroft-Gault) 150.3 Glucose Level 91 mg/dL (70-99) Calcium Level 8.6 mg/dL (8.5-10.1) Magnesium Level 2.1 mg/dL (1.8-2.4) Microbiology 04/14/19 Aerobic Culture - Preliminary, Resulted 04/14/19 Aerobic Culture Result 1 (ROYA) - Preliminary, Resulted 04/14/19 Gram Stain - Final, Resulted 04/14/19 Gram Stain Result 1 (ROYA) - Final, Resulted 04/14/19 Gram Stain Result 2 (ROYA) - Final, Resulted 04/12/19 Blood Culture - Final, Complete 04/12/19 Blood Culture Result 1 (ROYA) - Final, Complete 04/12/19 Antimicrobic Susceptibility - Final, Complete--E.coli, aguila-sensitive. Vitals/I & O Vital Sign - Last 24 Hours 04/16/19 04/16/19 04/16/19 04/16/19 18:07 18:37 19:40 20:00 Temp 98.3 98.3 Pulse 77 Resp 19 19 16 B/P (MAP) 150/75 (100) Pulse Ox 98 98 99 O2 Delivery Room Air Room Air Room Air Room Air 04/16/19 04/17/19 04/17/19 04/17/19 23:45 03:29 07:00 08:00 Temp 97.9 98.4 97.9 97.9 98.4 97.9 Pulse 79 81 78 Resp 16 16 18 B/P (MAP) 145/78 (100) 176/97 (123) 156/84 (108) Pulse Ox 99 98 99 O2 Delivery Room Air Room Air Room Air Room Air 04/17/19 04/17/19 04/17/19 04/17/19 08:29 10:39 11:00 11:46 Temp 98.2 98.2 Pulse 82 Resp 16 B/P (MAP) 146/80 (102) Pulse Ox 99 99 99 99 O2 Delivery Room Air Room Air Room Air Room Air O2 Flow Rate 2.0 04/17/19 12:27 Pulse 82 B/P (MAP) 146/80 Intake and Output 04/16/19 04/16/19 04/17/19 15:00 23:00 07:00 Intake Total 300 ml Balance 300 ml Problem List Problems Medical Problems: (1) Enterocutaneous fistula Status: Acute Assessment Chronic EC fistulae/enterovesical fistula also. E.coli sepsis--PICC eval negative to date. Plan of Care: Continue current Tx, Mgmt BENITA CALVILLO MD Apr 17, 2019 15:44
--- NOTE | 2019-04-17 15:57 | RAD ---
Procedure: Tunneled central venous catheter exchanged through same venous access Clinical Indication: 64-year-old with limited venous access options, and infected long-term tunneled central venous catheter. Sedation: Conscious sedation was administered with a total intraprocedural [id number] time of 30 minutes. The patient was monitored by a qualified independent observer throughout the time of sedation. Please refer to the medical record for exact doses of medications utilized to achieve moderate sedation. Antibiotics: Patient is on systemic IV antibiotic therapy Exposure: Kerma-Area Product: 0.4 Gycm2 Sterility: The procedure was performed in its entirety using appropriate elements of sterile technique. Consent: The procedure was explained in its entirety to the patient or the patients designated sales utility representative by a member of the treatment team, including a discussion of the risks, benefits and commonly accepted alternatives to the procedure, as well as the expected consequences of no therapy whatsoever. Discussion of the risks included, but was not limited to, those that are most frequent and those that are rare but possibly severe or life-threatening, as well as the possibility of unforeseen complications. Technique and Findings: Following informed consent, the patient was prepped and draped in usual sterile fashion. Preliminary fluoroscopic spot view revealed an intact right IJ tunneled central venous catheter. 1% lidocaine was used to achieve local anesthesia around the exit site, and blunt dissection techniques were used to free the cuff. The entire catheter was then removed over wire and a 5 Welsh peel-away sheath was advanced over the wire into the superior vena cava. A new tunneled central venous catheter was then deployed over the wire through the peel-away sheath under fluoroscopic guidance such that the distal tip resided at the cavoatrial junction. Both lumens flushed and aspirated with ease. The new catheter was sutured to the skin, flushed with saline, and capped. Complications: No immediate Impression: 1. Removal and replacement of a tunneled central venous catheter to the same right IJ venous tract as described. This patient has limited venous options, necessitating preservation of access.
[2019-04-17 19:22] VITALS: BP 155/79
[2019-04-17] MEDS ORDERED: TOTAL PARENTERAL NUTRITION IV SCH ×10 (22:00)
[2019-04-17] MEDS ORDERED: DEXTROSE 70% IV SCH ×10 (22:00)
[2019-04-17] MEDS ORDERED: AMINO ACID IV SCH ×10 (22:00)
[2019-04-17] MEDS ORDERED: [UNRECOGNIZED DRUG - OTHER] IV SCH ×10 (22:00)
[2019-04-17 23:22] VITALS: BP 146/74
[2019-04-18 03:22] VITALS: BP 174/95
[2019-04-18] MEDS: HYDROmorphone 2 MG/ML VIAL IV PRN ×4 (04:38→23:00)
[2019-04-18] MEDS ORDERED: ALTEPLASE 1MG SYRINGE. INT CAT PRN (06:00)
[2019-04-18 06:45] LABS: BASO # 0.1 x10^3/uL (0.0-0.2); BASO % 3 % (0-3); EOS # 0.2 x10^3/uL (0.0-0.7); EOS % 5 % (0-3); HEMATOCRIT 25.2 % (36.0-47.0); HEMOGLOBIN 8.3 g/dL (12.0-15.5); LYMPH % 26 % (24-48); MEAN CORPUSCULAR HEMOGLOBIN 28 pg (25-35); MEAN CORPUSCULAR HGB CONC 33 g/dL (31-37); MEAN CORPUSCULAR VOLUME 84 fL (79-100); MONO # 0.2 x10^3/uL (0.0-1.1); MONO % 6 % (0-9); NEUT # 2.4 x10^3/uL (1.8-7.7); NEUT % 60 % (31-73); PLATELET COUNT 359 x10^3/uL (140-400); RED BLOOD COUNT 3.01 x10^6/uL (3.50-5.40); RED CELL DISTRIBUTION WIDTH 18.5 % (11.5-14.5)
[2019-04-18 06:56] LABS: CALCIUM 8.8 mg/dL (8.5-10.1); CREATININE 0.5 mg/dL (0.6-1.0); GFR 150.3; MAGNESIUM 1.9 mg/dL (1.8-2.4); POTASSIUM 4.5 mmol/L (3.5-5.1)
[2019-04-18 07:00] VITALS: BP 130/79
[2019-04-18] MEDS: SERTRALINE 50 MG TABLET. PO SCH (09:21)
[2019-04-18] MEDS: PANTOPRAZOLE 40 MG TABLET.DR. PO SCH (09:21)
[2019-04-18] MEDS: amLODIPine BESYLATE 5 MG TABLET PO SCH (09:21)
--- NOTE | 2019-04-18 09:30 | PDOC ---
Subjective: Subjective: Ate pancakes this morning. Joseluis some pain - will ask for pain meds in a bit. Stooling every time she urinates. Drainage is less. Objective: Vital Signs: Vital Signs Date Time Temp Pulse Resp B/P (MAP) Pulse Ox O2 Delivery O2 Flow Rate FiO2 04/18/19 07:00 97.5 80 16 130/79 (96) 100 Room Air 97.5 04/17/19 18:24 2.0 Labs: Laboratory Tests Test 04/18/19 06:20 White Blood Count 4.0 x10^3/uL Red Blood Count 3.01 x10^6/uL Hemoglobin 8.3 g/dL Hematocrit 25.2 % Mean Corpuscular Volume 84 fL Mean Corpuscular Hemoglobin 28 pg Mean Corpuscular Hemoglobin Concent 33 g/dL Red Cell Distribution Width 18.5 % Platelet Count 359 x10^3/uL Neutrophils (%) (Auto) 60 % Lymphocytes (%) (Auto) 26 % Monocytes (%) (Auto) 6 % Eosinophils (%) (Auto) 5 % Basophils (%) (Auto) 3 % Neutrophils # (Auto) 2.4 x10^3/uL Lymphocytes # (Auto) 1.0 x10^3/uL Monocytes # (Auto) 0.2 x10^3/uL Eosinophils # (Auto) 0.2 x10^3/uL Basophils # (Auto) 0.1 x10^3/uL Sodium Level 139 mmol/L Potassium Level 4.5 mmol/L Chloride Level 106 mmol/L Carbon Dioxide Level 27 mmol/L Anion Gap 6 Blood Urea Nitrogen 14 mg/dL Creatinine 0.5 mg/dL Estimated GFR (Cockcroft-Gault) 150.3 Glucose Level 112 mg/dL Calcium Level 8.8 mg/dL Magnesium Level 1.9 mg/dL PE: GEN: NAD - sitting up in bed HEENT: ecchymosis left eye LUNGS: room air NEURO/PSYCH: A & O 3 A/P: Chronic fistulae/drainage E.coli sepsis Chronic anemia -- Stable GI-garcia. MIESHA RICO Apr 18, 2019 09:30
--- NOTE | 2019-04-18 10:11 | PDOC ---
PROGRESS NOTES Subjective Subjective feels better. bp is okay. lab reviewed. picc tip culture negative so far . Objective Objective Vital Signs Date Time Temp Pulse Resp B/P (MAP) Pulse Ox O2 Delivery O2 Flow Rate FiO2 04/18/19 09:21 80 130/79 04/18/19 09:21 Room Air 04/18/19 07:00 97.5 16 100 97.5 04/17/19 18:24 2.0 Intake and Output 04/18/19 07:00 Intake Total 1110 ml Balance 1110 ml Intake Oral 1110 ml # Voids 9 # Bowel Movements 5 Physical Exam Abdomen: Soft, Other (EC fistula) Heart: Regular rate, Normal S1, Normal S2 Extremities: Other (1 plus edema left foot) General: Alert HEENT: Atraumatic Lungs: Clear to auscultation Neuro: Normal speech Psych/Mental Status: Mental status NL Skin: No rashes Assessment Assessment Problems1. E. coli bacteremia and Sepsis. improved. suspect PICC line sepsis. PICC exchanged last week 2. 3. Enterocutaneous fistula. 4. Enterovesical fistula. Urine cultures will not be too helpful because of an enterovesical fistula. 5. Severe hypokalemia.treated 6. Hypertension. 7. Anemia of chronic disease. Medical Problems: (1) Enterocutaneous fistula Status: Acute Plan Plan of Care continue iv rocephin discussed with dr. red nesbitt iv lasix today continue TPN continue amlodipine lab tomorrow Comment Review of Relevant I have reviewed the following items lucila (where applicable) has been applied. Labs Laboratory Tests Test 04/17/19 05:50 04/18/19 06:20 White Blood Count 3.6 x10^3/uL (4.0-11.0) 4.0 x10^3/uL (4.0-11.0) Red Blood Count 2.99 x10^6/uL (3.50-5.40) 3.01 x10^6/uL (3.50-5.40) Hemoglobin 8.3 g/dL (12.0-15.5) 8.3 g/dL (12.0-15.5) Hematocrit 25.5 % (36.0-47.0) 25.2 % (36.0-47.0) Mean Corpuscular Volume 85 fL (79-100) 84 fL (79-100) Mean Corpuscular Hemoglobin 28 pg (25-35) 28 pg (25-35) Mean Corpuscular Hemoglobin Concent 33 g/dL (31-37) 33 g/dL (31-37) Red Cell Distribution Width 19.0 % (11.5-14.5) 18.5 % (11.5-14.5) Platelet Count 358 x10^3/uL (140-400) 359 x10^3/uL (140-400) Neutrophils (%) (Auto) 52 % (31-73) 60 % (31-73) Lymphocytes (%) (Auto) 30 % (24-48) 26 % (24-48) Monocytes (%) (Auto) 9 % (0-9) 6 % (0-9) Eosinophils (%) (Auto) 5 % (0-3) 5 % (0-3) Basophils (%) (Auto) 4 % (0-3) 3 % (0-3) Neutrophils # (Auto) 1.9 x10^3/uL (1.8-7.7) 2.4 x10^3/uL (1.8-7.7) Lymphocytes # (Auto) 1.1 x10^3/uL (1.0-4.8) 1.0 x10^3/uL (1.0-4.8) Monocytes # (Auto) 0.3 x10^3/uL (0.0-1.1) 0.2 x10^3/uL (0.0-1.1) Eosinophils # (Auto) 0.2 x10^3/uL (0.0-0.7) 0.2 x10^3/uL (0.0-0.7) Basophils # (Auto) 0.1 x10^3/uL (0.0-0.2) 0.1 x10^3/uL (0.0-0.2) Segmented Neutrophils % 63 % (35-66) Band Neutrophils % 2 % (0-9) Lymphocytes % 23 % (24-48) Monocytes % 10 % (0-10) Eosinophils % 2 % (0-5) Nucleated Red Blood Cells 1 Platelet Estimate Adequate (ADEQUATE) Sodium Level 141 mmol/L (136-145) 139 mmol/L (136-145) Potassium Level 4.8 mmol/L (3.5-5.1) 4.5 mmol/L (3.5-5.1) Chloride Level 110 mmol/L (98-107) 106 mmol/L (98-107) Carbon Dioxide Level 24 mmol/L (21-32) 27 mmol/L (21-32) Anion Gap 7 (6-14) 6 (6-14) Blood Urea Nitrogen 13 mg/dL (7-20) 14 mg/dL (7-20) Creatinine 0.5 mg/dL (0.6-1.0) 0.5 mg/dL (0.6-1.0) Estimated GFR (Cockcroft-Gault) 150.3 150.3 Glucose Level 91 mg/dL (70-99) 112 mg/dL (70-99) Calcium Level 8.6 mg/dL (8.5-10.1) 8.8 mg/dL (8.5-10.1) Magnesium Level 2.1 mg/dL (1.8-2.4) 1.9 mg/dL (1.8-2.4) Laboratory Tests Test 04/18/19 06:20 White Blood Count 4.0 x10^3/uL (4.0-11.0) Red Blood Count 3.01 x10^6/uL (3.50-5.40) Hemoglobin 8.3 g/dL (12.0-15.5) Hematocrit 25.2 % (36.0-47.0) Mean Corpuscular Volume 84 fL (79-100) Mean Corpuscular Hemoglobin 28 pg (25-35) Mean Corpuscular Hemoglobin Concent 33 g/dL (31-37) Red Cell Distribution Width 18.5 % (11.5-14.5) Platelet Count 359 x10^3/uL (140-400) Neutrophils (%) (Auto) 60 % (31-73) Lymphocytes (%) (Auto) 26 % (24-48) Monocytes (%) (Auto) 6 % (0-9) Eosinophils (%) (Auto) 5 % (0-3) Basophils (%) (Auto) 3 % (0-3) Neutrophils # (Auto) 2.4 x10^3/uL (1.8-7.7) Lymphocytes # (Auto) 1.0 x10^3/uL (1.0-4.8) Monocytes # (Auto) 0.2 x10^3/uL (0.0-1.1) Eosinophils # (Auto) 0.2 x10^3/uL (0.0-0.7) Basophils # (Auto) 0.1 x10^3/uL (0.0-0.2) Sodium Level 139 mmol/L (136-145) Potassium Level 4.5 mmol/L (3.5-5.1) Chloride Level 106 mmol/L (98-107) Carbon Dioxide Level 27 mmol/L (21-32) Anion Gap 6 (6-14) Blood Urea Nitrogen 14 mg/dL (7-20) Creatinine 0.5 mg/dL (0.6-1.0) Estimated GFR (Cockcroft-Gault) 150.3 Glucose Level 112 mg/dL (70-99) Calcium Level 8.8 mg/dL (8.5-10.1) Magnesium Level 1.9 mg/dL (1.8-2.4) Microbiology 04/14/19 Aerobic Culture - Final, Complete 04/14/19 Aerobic Culture Result 1 (ROYA) - Final, Complete 04/14/19 Gram Stain - Final, Complete 04/14/19 Gram Stain Result 1 (ROYA) - Final, Complete 04/14/19 Gram Stain Result 2 (ROYA) - Final, Complete 04/12/19 Blood Culture - Final, Complete 04/12/19 Blood Culture Result 1 (ROYA) - Final, Complete 04/12/19 Antimicrobic Susceptibility - Final, Complete Medications Current Medications Hydromorphone HCl (Dilaudid) 1 mg PRN Q2HR PRN IV/SQ PAIN GREATER THAN 3/10 Last administered on 04/12/19at 22:12; Start 04/12/19 at 20:45; Stop 04/13/19 at 08:11; Status DC Ondansetron HCl (Zofran) 4 mg 1X ONCE IV Last administered on 04/12/19at 21:02; Start 04/12/19 at 20:45; Stop 04/12/19 at 20:46; Status DC Sodium Chloride 1,000 ml @ 1,000 mls/hr 1X ONCE IV Last administered on 04/12/19at 20:56; Start 04/12/19 at 20:45; Stop 04/12/19 at 21:44; Status DC Piperacillin Sod/ Tazobactam Sod 3.375 gm/Sodium Chloride 50 ml @ 100 mls/hr 1X ONCE IV Last administered on 04/12/19at 22:30; Start 04/12/19 at 22:15; Stop 04/12/19 at 22:44; Status DC Linezolid/Dextrose 300 ml @ 300 mls/hr Q12HR IV Last administered on 04/15/19at 21:06; Start 04/13/19 at 09:00; Stop 04/16/19 at 07:38; Status DC Ondansetron HCl (Zofran) 4 mg PRN Q8HRS PRN IV NAUSEA/VOMITING Last administered on 04/13/19at 11:02; Start 04/12/19 at 22:15; Stop 04/13/19 at 22:14; Status DC Sodium Chloride 1,000 ml @ 100 mls/hr Q10H IV Last administered on 04/12/19at 23:23; Start 04/12/19 at 22:15; Stop 04/13/19 at 08:14; Status DC Linezolid/Dextrose 300 ml @ 300 mls/hr 1X ONCE IV Last administered on 04/12/19at 23:24; Start 04/12/19 at 22:30; Stop 04/12/19 at 23:29; Status DC Potassium Chloride (Klor-Con) 60 meq 1X ONCE PO Last administered on 04/12/19at 23:29; Start 04/12/19 at 23:00; Stop 04/12/19 at 23:01; Status DC Influenza Virus Vaccine Quadrival (Afluria Quad 2019-20 (3yr Up) Syringe) 0.5 ml ONCE ONCE VAX IM Last administered on 04/14/19at 12:35; Start 04/13/19 at 09:00; Stop 04/13/19 at 09:01; Status DC Hydromorphone HCl (Dilaudid) 2 mg PRN Q4HRS PRN IV PAIN Last administered on 04/18/19at 09:21; Start 04/13/19 at 05:15 Amlodipine Besylate (Norvasc) 5 mg DAILY PO ; Start 04/13/19 at 09:00; Stop 04/13/19 at 12:07; Status DC Hydromorphone HCl (Dilaudid) 2 mg PRN QID PRN PO MODERATE - SEVERE PAIN; Start 04/13/19 at 05:30 Acetaminophen (Tylenol) 650 mg PRN Q6HRS PRN PO MILD PAIN / TEMP; Start 04/13/19 at 05:30 Sertraline HCl (Zoloft) 50 mg DAILY PO Last administered on 04/18/19at 09:21; Start 04/13/19 at 09:00 Lorazepam (Ativan) 0.5 mg PRN Q6HRS PRN PO ANXIETY; Start 04/13/19 at 05:30 Zolpidem Tartrate (Ambien) 5 mg PRN QHS PRN PO INSOMNIA Last administered on 04/14/19at 21:32; Start 04/13/19 at 05:30 Ondansetron HCl (Zofran Odt) 4 mg PRN Q8HRS PRN PO NAUSEA/VOMITING; Start 04/13/19 at 05:30 Pantoprazole Sodium (Protonix) 40 mg DAILYAC PO Last administered on 04/18/19at 09:21; Start 04/13/19 at 07:30 Meropenem 500 mg/ Sodium Chloride 50 ml @ 100 mls/hr Q6HRS IV Last administered on 04/17/19at 06:13; Start 04/13/19 at 08:30; Stop 04/17/19 at 10:05; Status DC Micafungin Sodium 100 mg/Dextrose 100 ml @ 100 mls/hr Q24H IV Last administered on 04/15/19at 08:41; Start 04/13/19 at 09:00; Stop 04/16/19 at 07:38; Status DC Daptomycin 280 mg/ Sodium Chloride 50 ml @ 100 mls/hr ONCE ONCE IV Last administered on 04/13/19at 08:48; Start 04/13/19 at 08:30; Stop 04/13/19 at 08:59; Status DC Ondansetron HCl (Zofran) 4 mg 1X ONCE IVP Last administered on 04/13/19at 11:00; Start 04/13/19 at 11:00; Stop 04/13/19 at 11:01; Status DC Potassium Chloride/Dextrose/ Sod Cl 1,000 ml @ 75 mls/hr [id number] IV Last administered on 04/13/19at 12:27; Start 04/13/19 at 12:00; Stop 04/13/19 at 21:59; Status DC Potassium Chloride/Water 50 ml @ 25 mls/hr Q2H IV Last administered on 04/13/19at 17:03; Start 04/13/19 at 13:00; Stop 04/13/19 at 16:59; Status DC Ondansetron HCl (Zofran) 4 mg PRN Q6HRS PRN IVP NAUSEA/VOMITING Last administered on 04/14/19at 21:27; Start 04/13/19 at 12:00 Info (Tpn Per Pharmacy) 1 each PRN DAILY PRN MC SEE COMMENTS Last administered on 04/17/19at 13:37; Start 04/13/19 at 13:00 Sodium Chloride 200 meq/Potassium Chloride 60 meq/ Potassium Phosphate 13.6 mmol/Magnesium Sulfate 15 meq/ Calcium Gluconate 10 meq/ Multivitamins 10 ml/Chromium/ Copper/Manganese/ Seleni/Zn 1 ml/ Total Parenteral Nutrition/Amino Acids/Dextrose/ Fat Emulsion Intravenous 1,920 ml @ 80 mls/hr TPN CONT IV Last administered on 04/13/19at 22:04; Start 04/13/19 at 22:00; Stop 04/14/19 at 21:59; Status DC Lidocaine/ Epinephrine (LIDOCAINE 1%-EPI 1:100,000 Multi-Dose) 20 ml STK-MED ONCE .ROUTE ; Start 04/14/19 at 09:50; Stop 04/14/19 at 09:50; Status DC Midazolam HCl (Versed) 2 mg STK-MED ONCE .ROUTE ; Start 04/14/19 at 10:28; Stop 04/14/19 at 10:29; Status DC Fentanyl Citrate (Fentanyl 2ml Vial) 100 mcg STK-MED ONCE .ROUTE ; Start 04/14/19 at 10:29; Stop 04/14/19 at 10:29; Status DC Midazolam HCl (Versed) 2 mg 1X ONCE IV Last administered on 04/14/19at 11:08; Start 04/14/19 at 11:00; Stop 04/14/19 at 11:01; Status DC Fentanyl Citrate (Fentanyl 2ml Vial) 100 mcg 1X ONCE IV Last administered on 04/14/19at 11:07; Start 04/14/19 at 11:00; Stop 04/14/19 at 11:01; Status DC Lidocaine/ Epinephrine (LIDOCAINE 1%-EPI 1:100,000 Multi-Dose) 20 ml 1X ONCE INJ Last administered on 04/14/19at 11:05; Start 04/14/19 at 11:00; Stop 04/14/19 at 11:01; Status DC Magnesium Sulfate 100 ml @ 25 mls/hr 1X ONCE IV Last administered on 04/14/19at 13:09; Start 04/14/19 at 13:00; Stop 04/14/19 at 16:59; Status DC Sodium Chloride 200 meq/Potassium Chloride 60 meq/ Potassium Phosphate 13.6 mmol/Magnesium Sulfate 20 meq/ Calcium Gluconate 10 meq/ Multivitamins 10 ml/Chromium/ Copper/Manganese/ Seleni/Zn 1 ml/ Total Parenteral Nutrition/Amino Acids/Dextrose/ Fat Emulsion Intravenous 1,920 ml @ 80 mls/hr TPN CONT IV Last administered on 04/15/19at 01:46; Start 04/14/19 at 22:00; Stop 04/15/19 at 21:59; Status DC Lidocaine HCl (Xylocaine 2% Topical 5gm Tube) 1 sang PRN Q2HR PRN TP pain Last administered on 04/15/19at 05:39; Start 04/15/19 at 01:30 Sodium Chloride 200 meq/Potassium Chloride 60 meq/ Potassium Phosphate 13.6 mmol/Magnesium Sulfate 20 meq/ Calcium Gluconate 10 meq/ Multivitamins 10 ml/Chromium/ Copper/Manganese/ Seleni/Zn 1 ml/ Total Parenteral Nutrition/Amino Acids/Dextrose/ Fat Emulsion Intravenous 1,920 ml @ 80 mls/hr TPN CONT IV Last administered on 04/15/19at 21:58; Start 04/15/19 at 22:00; Stop 04/16/19 at 21:59; Status DC Sodium Chloride 200 meq/Potassium Chloride 20 meq/ Potassium Phosphate 13.6 mmol/Magnesium Sulfate 20 meq/ Calcium Gluconate 10 meq/ Multivitamins 10 ml/Chromium/ Copper/Manganese/ Seleni/Zn 1 ml/ Total Parenteral Nutrition/Amino Acids/Dextrose/ Fat Emulsion Intravenous 1,920 ml @ 80 mls/hr TPN CONT IV Last administered on 04/16/19at 21:28; Start 04/16/19 at 22:00; Stop 04/17/19 at 21:59; Status DC Ceftriaxone Sodium (Rocephin) 1 gm Q24H IVP Last administered on 04/17/19at 12:28; Start 04/17/19 at 11:00 Furosemide (Lasix) 20 mg 1X ONCE IVP Last administered on 04/17/19at 12:27; Start 04/17/19 at 11:30; Stop 04/17/19 at 11:31; Status DC Amlodipine Besylate (Norvasc) 5 mg DAILY PO Last administered on 04/18/19at 09 :21; Start 04/17/19 at 12:00 Sodium Chloride 200 meq/Potassium Chloride 20 meq/ Potassium Phosphate 13.6 mmol/Magnesium Sulfate 20 meq/ Calcium Gluconate 10 meq/ Multivitamins 10 ml/Chromium/ Copper/Manganese/ Seleni/Zn 1 ml/ Total Parenteral Nutrition/Amino Acids/Dextrose/ Fat Emulsion Intravenous 1,920 ml @ 80 mls/hr TPN CONT IV Last administered on 04/17/19at 22:37; Start 04/17/19 at 22:00; Stop 04/18/19 at 21:59 Alteplase, Recombinant (Cathflo For Central Catheter Clearance) 1 mg PRN DAILY PRN INT CAT SEE COMMENTS; Start 04/18/19 at 06:00 Active Scripts Active Tylenol (Acetaminophen) 325 Mg Tablet 650 Mg PO PRN Q6HRS PRN Amlodipine Besylate 5 Mg Tablet 5 Mg PO DAILY [Pantoprazole] 40 MG Tablet.dr 40 Mg PO DAILYAC 30 Days Zinc Oxide 56.7 Gm Oint...g. 1 Sang TP BID Ambien (Zolpidem Tartrate) 5 Mg Tablet 5 Mg PO PRN QHS PRN 30 Days [Tpn Per Pharmacy] 1 EACH Each 1 Each MC PRN DAILY PRN TPN at 85cc/hour Sertraline Hcl 50 Mg Tablet 50 Mg PO DAILY 30 Days Lidocaine 35.44 Gm Oint...g. 1 Sang TP BID Reported Zofran Odt (Ondansetron) 4 Mg Tab.rapdis 1 Tab SL PRN Q8HRS PRN Zinc Oxide 56.7 Gm Oint...g. 56.7 Gm TP PRN BID Dilaudid (Hydromorphone Hcl) 2 Mg Tablet 1 Tab PO PRN QID PRN Lorazepam 0.5 Mg Tablet 0.5 Mg PO Q6HRS PRN Vitals/I & O Vital Sign - Last 24 Hours 04/17/19 04/17/19 04/17/19 04/17/19 10:39 11:00 11:46 12:27 Temp 98.2 98.2 Pulse 82 82 Resp 16 B/P (MAP) 146/80 (102) 146/80 Pulse Ox 99 99 99 O2 Delivery Room Air Room Air Room Air O2 Flow Rate 2.0 04/17/19 04/17/19 04/17/19 04/17/19 15:00 15:43 18:24 19:22 Temp 98.0 97.7 98.0 97.7 Pulse 77 70 Resp 16 18 B/P (MAP) 144/82 (102) 155/79 (104) Pulse Ox 99 99 99 100 O2 Delivery Room Air Room Air Room Air Room Air O2 Flow Rate 2.0 2.0 04/17/19 04/17/19 04/18/19 04/18/19 20:00 23:22 03:22 07:00 Temp 98.3 98.0 97.5 98.3 98.0 97.5 Pulse 72 91 80 Resp 16 18 16 B/P (MAP) 146/74 (98) 174/95 (121) 130/79 (96) Pulse Ox 99 97 100 O2 Delivery Room Air Room Air Room Air Room Air 04/18/19 04/18/19 09:21 09:21 Pulse 80 B/P (MAP) 130/79 O2 Delivery Room Air Intake and Output 04/17/19 04/17/19 04/18/19 15:00 23:00 07:00 Intake Total 340 ml 470 ml 300 ml Balance 340 ml 470 ml 300 ml Nutrition Consultation Dietary Evaluation: Recommendations by RD: Dietary education by RD, PPN/TPN Comments: REC continue TPN Expected Outcomes/Goals: to meet >75% est nutr needs via TPN- goal ongoing Malnutrition Findings: Body Fat Depletion (Non Severe: Mild Depletion Weight Status: Underweight BENITA LUTZ MD Apr 18, 2019 10:11
[2019-04-18] MEDS ORDERED: FUROSEMIDE 20 MG/2 ML VIAL. IVP ONE (10:15)
[2019-04-18 11:00] VITALS: BP 160/84
[2019-04-18] MEDS: TPN PER PHARMACY MC PRN (11:26)
--- NOTE | 2019-04-18 11:27 | NUR ---
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 TPN started B:Pertinent PMH: Long-term TPN Height: 5 feet, 4 inches Weight: 54.754415 kg Current diet: Regular LABS: Sodium: 139 Potassium: 4.5 Chloride: 106 Calcium: 8.8 Corrected Calcium: 10.48 Magnesium: 1.9 CO2: 27 SCr: 0.5 Glucose: 112 Albumin: 1.9 AST: 17 ALT: 7 TPN FORMULA: TPN TYPE: Central Continuous AMINO ACIDS: 90 gm DEXTROSE: 285 gm LIPIDS: 35 gm SODIUM CHLORIDE: 200 mEq SODIUM ACETATE: - mEq SODIUM PHOSPHATE: - mmol POTASSIUM CHLORIDE: 20 mEq POTASSIUM ACETATE: - mEq POTASSIUM PHOSPHATE: 13.6 mmol MAGNESIUM: 24 mEq CALCIUM: 10 mEq INSULIN: - units MULTIPLE VITAMIN: 10 ml TRACE ELEMENTS: 1 ml(s) TPN PLAN: Labs stable today. Magnesium trending down; added 4 meq, total 24 meq in bag. No other changes, BMP/mag in AM. R: Continue TPN ABOVE. Will monitor electrolytes, glucose, and tolerance to TPN. CICI DURAN [facility], 04/18/19 1127
[2019-04-18] MEDS: cefTRIAXone IV Push 1 GM VIAL. IVP SCH (12:22)
[2019-04-18 15:00] VITALS: BP 11/84
[2019-04-18 19:50] VITALS: BP 156/91
[2019-04-18] MEDS ORDERED: DEXTROSE 70% IV SCH ×10 (22:00)
[2019-04-18] MEDS ORDERED: TOTAL PARENTERAL NUTRITION IV SCH ×10 (22:00)
[2019-04-18] MEDS ORDERED: [UNRECOGNIZED DRUG - OTHER] IV SCH ×10 (22:00)
[2019-04-18] MEDS ORDERED: AMINO ACID IV SCH ×10 (22:00)
[2019-04-18 23:55] VITALS: BP 138/84
[2019-04-19] VITALS (7 sets, daily range): BP systolic 133–169; BP diastolic 76–100
[2019-04-19] MEDS: HYDROmorphone 2 MG/ML VIAL IV PRN ×4 (07:01→22:21)
[2019-04-19] MEDS: SERTRALINE 50 MG TABLET. PO SCH (09:20)
[2019-04-19] MEDS: PANTOPRAZOLE 40 MG TABLET.DR. PO SCH (09:20)
[2019-04-19] MEDS: amLODIPine BESYLATE 5 MG TABLET PO SCH (09:21)
--- NOTE | 2019-04-19 10:13 | PDOC ---
PROGRESS NOTES Subjective Subjective feels better. not able to draw blood from picc. labs not done yet. has bilateral LE edema . will obtain venous doppler and order iv lasix today. Objective Objective Vital Signs Date Time Temp Pulse Resp B/P (MAP) Pulse Ox O2 Delivery O2 Flow Rate FiO2 04/19/19 09:21 93 166/100 04/19/19 07:59 98.3 18 99 Room Air 98.3 04/17/19 18:24 2.0 Intake and Output 04/19/19 07:00 Intake Total 1170 ml Balance 1170 ml Intake Oral 1170 ml # Voids 15 # Bowel Movements 2 Physical Exam Abdomen: Soft, Other (EC fistula) Heart: Regular rate, Normal S1, Normal S2 Extremities: Other (2 plus edema legs) General: Alert HEENT: Atraumatic Lungs: Clear to auscultation Neuro: Normal speech Psych/Mental Status: Mental status NL Skin: No rashes Assessment Assessment Problems. E. coli bacteremia and Sepsis. improved. suspect PICC line sepsis. PICC exchanged last week 2. 3. Enterocutaneous fistula. 4. Enterovesical fistula. Urine cultures will not be too helpful because of an enterovesical fistula. 5. Severe hypokalemia.treated 6. Hypertension. bp is high 7. Anemia of chronic disease. bilateral LE edema Medical Problems: (1) Enterocutaneous fistula Status: Acute Plan Plan of Care lab pending nurse to call IR about inability to draw blood from picc despite cath-xiomara continue iv rocephin lasix 40 mg iv now bilateral LE venous doppler continue TPN home tomorrow with TPN and IV rocephin if picc issue resolved and if labs okay and stable Comment Review of Relevant I have reviewed the following items lucila (where applicable) has been applied. Labs Laboratory Tests Test 04/18/19 06:20 White Blood Count 4.0 x10^3/uL (4.0-11.0) Red Blood Count 3.01 x10^6/uL (3.50-5.40) Hemoglobin 8.3 g/dL (12.0-15.5) Hematocrit 25.2 % (36.0-47.0) Mean Corpuscular Volume 84 fL (79-100) Mean Corpuscular Hemoglobin 28 pg (25-35) Mean Corpuscular Hemoglobin Concent 33 g/dL (31-37) Red Cell Distribution Width 18.5 % (11.5-14.5) Platelet Count 359 x10^3/uL (140-400) Neutrophils (%) (Auto) 60 % (31-73) Lymphocytes (%) (Auto) 26 % (24-48) Monocytes (%) (Auto) 6 % (0-9) Eosinophils (%) (Auto) 5 % (0-3) Basophils (%) (Auto) 3 % (0-3) Neutrophils # (Auto) 2.4 x10^3/uL (1.8-7.7) Lymphocytes # (Auto) 1.0 x10^3/uL (1.0-4.8) Monocytes # (Auto) 0.2 x10^3/uL (0.0-1.1) Eosinophils # (Auto) 0.2 x10^3/uL (0.0-0.7) Basophils # (Auto) 0.1 x10^3/uL (0.0-0.2) Sodium Level 139 mmol/L (136-145) Potassium Level 4.5 mmol/L (3.5-5.1) Chloride Level 106 mmol/L (98-107) Carbon Dioxide Level 27 mmol/L (21-32) Anion Gap 6 (6-14) Blood Urea Nitrogen 14 mg/dL (7-20) Creatinine 0.5 mg/dL (0.6-1.0) Estimated GFR (Cockcroft-Gault) 150.3 Glucose Level 112 mg/dL (70-99) Calcium Level 8.8 mg/dL (8.5-10.1) Magnesium Level 1.9 mg/dL (1.8-2.4) Microbiology 04/17/19 Blood Culture - Preliminary, Resulted NO GROWTH AFTER 1 DAY 04/14/19 Urine Culture - Final, Complete 04/14/19 Urine Culture Result 1 (ROYA) - Final, Complete 04/14/19 Aerobic Culture - Final, Complete 04/14/19 Aerobic Culture Result 1 (ROYA) - Final, Complete 04/14/19 Gram Stain - Final, Complete 04/14/19 Gram Stain Result 1 (ROYA) - Final, Complete 04/14/19 Gram Stain Result 2 (ROYA) - Final, Complete Medications Current Medications Hydromorphone HCl (Dilaudid) 1 mg PRN Q2HR PRN IV/SQ PAIN GREATER THAN 3/10 Last administered on 04/12/19at 22:12; Start 04/12/19 at 20:45; Stop 04/13/19 at 08:11; Status DC Ondansetron HCl (Zofran) 4 mg 1X ONCE IV Last administered on 04/12/19at 21:02; Start 04/12/19 at 20:45; Stop 04/12/19 at 20:46; Status DC Sodium Chloride 1,000 ml @ 1,000 mls/hr 1X ONCE IV Last administered on 04/12/19at 20:56; Start 04/12/19 at 20:45; Stop 04/12/19 at 21:44; Status DC Piperacillin Sod/ Tazobactam Sod 3.375 gm/Sodium Chloride 50 ml @ 100 mls/hr 1X ONCE IV Last administered on 04/12/19at 22:30; Start 04/12/19 at 22:15; Stop 04/12/19 at 22:44; Status DC Linezolid/Dextrose 300 ml @ 300 mls/hr Q12HR IV Last administered on 04/15/19at 21:06; Start 04/13/19 at 09:00; Stop 04/16/19 at 07:38; Status DC Ondansetron HCl (Zofran) 4 mg PRN Q8HRS PRN IV NAUSEA/VOMITING Last administered on 04/13/19at 11:02; Start 04/12/19 at 22:15; Stop 04/13/19 at 22:14; Status DC Sodium Chloride 1,000 ml @ 100 mls/hr Q10H IV Last administered on 04/12/19at 23:23; Start 04/12/19 at 22:15; Stop 04/13/19 at 08:14; Status DC Linezolid/Dextrose 300 ml @ 300 mls/hr 1X ONCE IV Last administered on 04/12/19at 23:24; Start 04/12/19 at 22:30; Stop 04/12/19 at 23:29; Status DC Potassium Chloride (Klor-Con) 60 meq 1X ONCE PO Last administered on 04/12/19at 23:29; Start 04/12/19 at 23:00; Stop 04/12/19 at 23:01; Status DC Influenza Virus Vaccine Quadrival (Afluria Quad 2019-20 (3yr Up) Syringe) 0.5 ml ONCE ONCE VAX IM Last administered on 04/14/19at 12:35; Start 04/13/19 at 09:00; Stop 04/13/19 at 09:01; Status DC Hydromorphone HCl (Dilaudid) 2 mg PRN Q4HRS PRN IV PAIN Last administered on 04/19/19at 07:01; Start 04/13/19 at 05:15 Amlodipine Besylate (Norvasc) 5 mg DAILY PO ; Start 04/13/19 at 09:00; Stop 04/13/19 at 12:07; Status DC Hydromorphone HCl (Dilaudid) 2 mg PRN QID PRN PO MODERATE - SEVERE PAIN; Start 04/13/19 at 05:30 Acetaminophen (Tylenol) 650 mg PRN Q6HRS PRN PO MILD PAIN / TEMP; Start 04/13/19 at 05:30 Sertraline HCl (Zoloft) 50 mg DAILY PO Last administered on 04/19/19at 09:20; Start 04/13/19 at 09:00 Lorazepam (Ativan) 0.5 mg PRN Q6HRS PRN PO ANXIETY; Start 04/13/19 at 05:30 Zolpidem Tartrate (Ambien) 5 mg PRN QHS PRN PO INSOMNIA Last administered on 04/14/19at 21:32; Start 04/13/19 at 05:30 Ondansetron HCl (Zofran Odt) 4 mg PRN Q8HRS PRN PO NAUSEA/VOMITING; Start 04/13/19 at 05:30 Pantoprazole Sodium (Protonix) 40 mg DAILYAC PO Last administered on 04/19/19at 09:20; Start 04/13/19 at 07:30 Meropenem 500 mg/ Sodium Chloride 50 ml @ 100 mls/hr Q6HRS IV Last administered on 04/17/19at 06:13; Start 04/13/19 at 08:30; Stop 04/17/19 at 10:05; Status DC Micafungin Sodium 100 mg/Dextrose 100 ml @ 100 mls/hr Q24H IV Last admini stered on 04/15/19at 08:41; Start 04/13/19 at 09:00; Stop 04/16/19 at 07:38; Status DC Daptomycin 280 mg/ Sodium Chloride 50 ml @ 100 mls/hr ONCE ONCE IV Last administered on 04/13/19at 08:48; Start 04/13/19 at 08:30; Stop 04/13/19 at 08:59; Status DC Ondansetron HCl (Zofran) 4 mg 1X ONCE IVP Last administered on 04/13/19at 11:00; Start 04/13/19 at 11:00; Stop 04/13/19 at 11:01; Status DC Potassium Chloride/Dextrose/ Sod Cl 1,000 ml @ 75 mls/hr [id number] IV Last administered on 04/13/19at 12:27; Start 04/13/19 at 12:00; Stop 04/13/19 at 21:59; Status DC Potassium Chloride/Water 50 ml @ 25 mls/hr Q2H IV Last administered on 04/13/19at 17:03; Start 04/13/19 at 13:00; Stop 04/13/19 at 16:59; Status DC Ondansetron HCl (Zofran) 4 mg PRN Q6HRS PRN IVP NAUSEA/VOMITING Last administered on 04/14/19at 21:27; Start 04/13/19 at 12:00 Info (Tpn Per Pharmacy) 1 each PRN DAILY PRN MC SEE COMMENTS Last administered on 04/18/19at 11:26; Start 04/13/19 at 13:00 Sodium Chloride 200 meq/Potassium Chloride 60 meq/ Potassium Phosphate 13.6 mmol/Magnesium Sulfate 15 meq/ Calcium Gluconate 10 meq/ Multivitamins 10 ml/Chromium/ Copper/Manganese/ Seleni/Zn 1 ml/ Total Parenteral Nutrition/Amino Acids/Dextrose/ Fat Emulsion Intravenous 1,920 ml @ 80 mls/hr TPN CONT IV Last administered on 04/13/19at 22:04; Start 04/13/19 at 22:00; Stop 04/14/19 at 21:59; Status DC Lidocaine/ Epinephrine (LIDOCAINE 1%-EPI 1:100,000 Multi-Dose) 20 ml STK-MED ONCE .ROUTE ; Start 04/14/19 at 09:50; Stop 04/14/19 at 09:50; Status DC Midazolam HCl (Versed) 2 mg STK-MED ONCE .ROUTE ; Start 04/14/19 at 10:28; Stop 04/14/19 at 10:29; Status DC Fentanyl Citrate (Fentanyl 2ml Vial) 100 mcg STK-MED ONCE .ROUTE ; Start 04/14/19 at 10:29; Stop 04/14/19 at 10:29; Status DC Midazolam HCl (Versed) 2 mg 1X ONCE IV Last administered on 04/14/19at 11:08; Start 04/14/19 at 11:00; Stop 04/14/19 at 11:01; Status DC Fentanyl Citrate (Fentanyl 2ml Vial) 100 mcg 1X ONCE IV Last administered on 04/14/19at 11:07; Start 04/14/19 at 11:00; Stop 04/14/19 at 11:01; Status DC Lidocaine/ Epinephrine (LIDOCAINE 1%-EPI 1:100,000 Multi-Dose) 20 ml 1X ONCE INJ Last administered on 04/14/19at 11:05; Start 04/14/19 at 11:00; Stop 04/14/19 at 11:01; Status DC Magnesium Sulfate 100 ml @ 25 mls/hr 1X ONCE IV Last administered on 04/14/19at 13:09; Start 04/14/19 at 13:00; Stop 04/14/19 at 16:59; Status DC Sodium Chloride 200 meq/Potassium Chloride 60 meq/ Potassium Phosphate 13.6 mmol/Magnesium Sulfate 20 meq/ Calcium Gluconate 10 meq/ Multivitamins 10 ml/Chromium/ Copper/Manganese/ Seleni/Zn 1 ml/ Total Parenteral Nutrition/Amino Acids/Dextrose/ Fat Emulsion Intravenous 1,920 ml @ 80 mls/hr TPN CONT IV Last administered on 04/15/19at 01:46; Start 04/14/19 at 22:00; Stop 04/15/19 at 21:59; Status DC Lidocaine HCl (Xylocaine 2% Topical 5gm Tube) 1 sang PRN Q2HR PRN TP pain Last administered on 04/15/19at 05:39; Start 04/15/19 at 01:30 Sodium Chloride 200 meq/Potassium Chloride 60 meq/ Potassium Phosphate 13.6 mmol/Magnesium Sulfate 20 meq/ Calcium Gluconate 10 meq/ Multivitamins 10 ml/Chromium/ Copper/Manganese/ Seleni/Zn 1 ml/ Total Parenteral Nutrition/Amino Acids/Dextrose/ Fat Emulsion Intravenous 1,920 ml @ 80 mls/hr TPN CONT IV Last administered on 04/15/19at 21:58; Start 04/15/19 at 22:00; Stop 04/16/19 at 21:59; Status DC Sodium Chloride 200 meq/Potassium Chloride 20 meq/ Potassium Phosphate 13.6 mmol/Magnesium Sulfate 20 meq/ Calcium Gluconate 10 meq/ Multivitamins 10 ml/Chromium/ Copper/Manganese/ Seleni/Zn 1 ml/ Total Parenteral Nutrition/Amino Acids/Dextrose/ Fat Emulsion Intravenous 1,920 ml @ 80 mls/hr TPN CONT IV Last administered on 04/16/19at 21:28; Start 04/16/19 at 22:00; Stop 04/17/19 at 21:59; Status DC Ceftriaxone Sodium (Rocephin) 1 gm Q24H IVP Last administered on 04/18/19 12:22; Start 04/17/19 at 11:00 Furosemide (Lasix) 20 mg 1X ONCE IVP Last administered on 04/17/19at 12:27; Start 04/17/19 at 11:30; Stop 04/17/19 at 11:31; Status DC Amlodipine Besylate (Norvasc) 5 mg DAILY PO Last administered on 04/19/19 09:21; Start 04/17/19 at 12:00 Sodium Chloride 200 meq/Potassium Chloride 20 meq/ Potassium Phosphate 13.6 mmol/Magnesium Sulfate 20 meq/ Calcium Gluconate 10 meq/ Multivitamins 10 ml/Chromium/ Copper/Manganese/ Seleni/Zn 1 ml/ Total Parenteral Nutrition/Amino Acids/Dextrose/ Fat Emulsion Intravenous 1,920 ml @ 80 mls/hr TPN CONT IV Last administered on 04/17/19at 22:37; Start 04/17/19 at 22:00; Stop 04/18/19 at 21:59; Status DC Alteplase, Recombinant (Cathflo For Central Catheter Clearance) 1 mg PRN DAILY PRN INT CAT SEE COMMENTS Last administered on 04/19/19at 08:35; Start 04/18/19 at 06:00 Furosemide (Lasix) 20 mg 1X ONCE IVP Last administered on 04/18/19at 12:23; Start 04/18/19 at 10:15; Stop 04/18/19 at 10:20; Status DC Sodium Chloride 200 meq/Potassium Chloride 20 meq/ Potassium Phosphate 13.6 mmol/Magnesium Sulfate 24 meq/ Calcium Gluconate 10 meq/ Multivitamins 10 ml/Chromium/ Copper/Manganese/ Seleni/Zn 1 ml/ Total Parenteral Nutrition/Amino Acids/Dextrose/ Fat Emulsion Intravenous 1,920 ml @ 80 mls/hr TPN CONT IV [place] [facility] administered on 04/18/19at 23:00; Start 04/18/19 at 22:00; Stop 04/19/19 at 21:59 Active Scripts Active Tylenol (Acetaminophen) 325 Mg Tablet 650 Mg PO PRN Q6HRS PRN Amlodipine Besylate 5 Mg Tablet 5 Mg PO DAILY [Pantoprazole] 40 MG Tablet.dr 40 Mg PO DAILYAC 30 Days Zinc Oxide 56.7 Gm Oint...g. 1 Sang TP BID Ambien (Zolpidem Tartrate) 5 Mg Tablet 5 Mg PO PRN QHS PRN 30 Days [Tpn Per Pharmacy] 1 EACH Each 1 Each MC PRN DAILY PRN TPN at 85cc/hour Sertraline Hcl 50 Mg Tablet 50 Mg PO DAILY 30 Days Lidocaine 35.44 Gm Oint...g. 1 Sang TP BID Reported Zofran Odt (Ondansetron) 4 Mg Tab.rapdis 1 Tab SL PRN Q8HRS PRN Zinc Oxide 56.7 Gm Oint...g. 56.7 Gm TP PRN BID Dilaudid (Hydromorphone Hcl) 2 Mg Tablet 1 Tab PO PRN QID PRN Lorazepam 0.5 Mg Tablet 0.5 Mg PO Q6HRS PRN Vitals/I & O Vital Sign - Last 24 Hours 04/18/19 04/18/19 04/18/19 04/18/19 11:00 15:00 19:50 20:20 Temp 98.1 98.1 98.2 98.1 98.1 98.2 Pulse 89 91 91 Resp 18 16 18 B/P (MAP) 160/84 (109) 11/84 (60) 156/91 (112) Pulse Ox 100 100 100 O2 Delivery Room Air Room Air Room Air Room Air 04/18/19 04/18/19 04/19/19 04/19/19 23:00 23:55 00:00 03:45 Temp 98.0 98.3 98.0 98.3 Pulse 78 84 Resp 18 18 B/P (MAP) 138/84 (102) 150/77 (101) Pulse Ox 99 90 O2 Delivery Room Air Room Air Room Air Room Air 04/19/19 04/19/19 04/19/19 07:01 07:59 09:21 Temp 98.3 98.3 Pulse 93 93 Resp 18 B/P (MAP) 166/100 (122) 166/100 Pulse Ox 99 O2 Delivery Room Air Room Air Intake and Output 04/18/19 04/18/19 04/19/19 15:00 23:00 07:00 Intake Total 470 ml 550 ml 150 ml Balance 470 ml 550 ml 150 ml Nutrition Consultation Dietary Evaluation: Recommendations by RD: Dietary education by RD, PPN/TPN Comments: REC continue TPN Expected Outcomes/Goals: to meet >75% est nutr needs via TPN- goal ongoing Malnutrition Findings: Body Fat Depletion (Non Severe: Mild Depletion Weight Status: Underweight BENITA LUTZ MD Apr 19, 2019 10:13
--- NOTE | 2019-04-19 10:52 | PDOC ---
Infectious Disease Note Subjective Subjective Feeling well No F/C/S/SOA/rash. No pain at new line site. No visual changes denies vomiting Abd drainage is less Vital Sign Vital Signs Vital Signs Date Time Temp Pulse Resp B/P (MAP) Pulse Ox O2 Delivery O2 Flow Rate FiO2 04/19/19 09:21 93 166/100 04/19/19 07:59 98.3 18 99 Room Air 98.3 Physical Exam PHYSICAL EXAM CONSTITUTIONAL: She is pleasant. She is cooperative. She is in no acute distress. She is in bed but a little slower to respond but did smile HEENT: Pupils are equal and reactive. EOMI. She has normal conjunctivae. Left eye echymosis stabel. Oral cavity, pharynx is clear without signs of any thrush. NECK: Supple, no JVD. LUNGS: Clear to auscultation bilaterally. HEART: S1, S2. Right-sided chest PICC line without signs of any complications. There is no streaking or swelling. ABDOMEN: Enterocutaneous fistula with a small hole. She has had some minimal excoriation. She has some cobblestoning of the area around it. There are some small areas about the area with pinpoint openings, but there is no gross pus or fluid collection. No gross fluctuance. EXTREMITIES: Without clubbing or cyanosis. No gross edema. SKIN: Warm to touch without signs of rash. NEUROLOGIC: She is alert and oriented to me/[facility]. nonfocal. PSYCHIATRIC: Affect is pleasant Labs Micro BLOOD CULTURE LC Final Preliminary report Final report BLD CULT RESULT 1 Final Gram negative rods Escherichia coli Performed at: DA - [facility] [address] [place] [address] [address], [place], [place] [id number] Flame Annealing Machine Operator: HU Good MD, Phone: [phone] ANTIMICROBIAL SUSCEPTIBILITY Final Comment S = Susceptible; I = Intermediate; R = Resistant P = Positive; N = Negative MICS are expressed in micrograms per mL Antibiotic RSLT#1 RSLT#2 RSLT#3 RSLT#4 Amoxicillin/Clavulanic Acid S<=2 Ampicillin S<=2 Cefepime S<=0.12 Ceftriaxone S<=0.25 Cefuroxime S =4 Ciprofloxacin S<=0.25 Ertapenem S<=0.12 Gentamicin S<=1 Imipenem S<=0.25 Levofloxacin S<=0.12 Meropenem S<=0.25 Nitrofurantoin S<=16 Piperacillin/Tazobactam S<=4 Tetracycline S<=1 Tobramycin S<=1 Trimethoprim/Sulfa S<=20 Performed at: DA - [facility] [place] [id number] [facility] [address], [place], [place] [id number] [employer] Annealing Machine Operator: HU Good MD, Phone: [phone] Objective Assessment GNR sepsis - POA 04/12 E coli clinically looking better Line changed 04/14 Fever- better Left eye echymosis after fall - CT neg Weakness Abd pain Ec fisula Plan Plan of Care rocephine repeat bc neg JOSSY TATUM MD Apr 19, 2019 10:52
[2019-04-19 11:32] LABS: BASO # 0.1 x10^3/uL (0.0-0.2); BASO % 3 % (0-3); EOS # 0.2 x10^3/uL (0.0-0.7); EOS % 5 % (0-3); HEMATOCRIT 25.1 % (36.0-47.0); HEMOGLOBIN 8.2 g/dL (12.0-15.5); LYMPH # 1.2 x10^3/uL (1.0-4.8); LYMPH % 30 % (24-48); MEAN CORPUSCULAR HEMOGLOBIN 28 pg (25-35); MEAN CORPUSCULAR HGB CONC 33 g/dL (31-37); MEAN CORPUSCULAR VOLUME 84 fL (79-100); MONO # 0.3 x10^3/uL (0.0-1.1); MONO % 8 % (0-9); NEUT # 2.2 x10^3/uL (1.8-7.7); NEUT % 53 % (31-73); PLATELET COUNT 373 x10^3/uL (140-400); RED BLOOD COUNT 2.98 x10^6/uL (3.50-5.40); RED CELL DISTRIBUTION WIDTH 18.6 % (11.5-14.5); WHITE BLOOD COUNT 4.1 x10^3/uL (4.0-11.0)
[2019-04-19 11:46] LABS: CALCIUM 8.2 mg/dL (8.5-10.1); CREATININE 0.6 mg/dL (0.6-1.0); GFR 121.8; MAGNESIUM 1.8 mg/dL (1.8-2.4); POTASSIUM 4.2 mmol/L (3.5-5.1)
--- NOTE | 2019-04-19 11:56 | PDOC ---
Subjective: Subjective: Feels pretty good today, shows me pictures of her knitting. Eating and stooling. Objective: Vital Signs: Vital Signs Date Time Temp Pulse Resp B/P (MAP) Pulse Ox O2 Delivery O2 Flow Rate FiO2 04/19/19 09:21 93 166/100 04/19/19 07:59 98.3 18 99 Room Air 98.3 Labs: Laboratory Tests Test 04/19/19 11:05 White Blood Count 4.1 x10^3/uL Red Blood Count 2.98 x10^6/uL Hemoglobin 8.2 g/dL Hematocrit 25.1 % Mean Corpuscular Volume 84 fL Mean Corpuscular Hemoglobin 28 pg Mean Corpuscular Hemoglobin Concent 33 g/dL Red Cell Distribution Width 18.6 % Platelet Count 373 x10^3/uL Neutrophils (%) (Auto) 53 % Lymphocytes (%) (Auto) 30 % Monocytes (%) (Auto) 8 % Eosinophils (%) (Auto) 5 % Basophils (%) (Auto) 3 % Neutrophils # (Auto) 2.2 x10^3/uL Lymphocytes # (Auto) 1.2 x10^3/uL Monocytes # (Auto) 0.3 x10^3/uL Eosinophils # (Auto) 0.2 x10^3/uL Basophils # (Auto) 0.1 x10^3/uL Sodium Level 142 mmol/L Potassium Level 4.2 mmol/L Chloride Level 107 mmol/L Carbon Dioxide Level 28 mmol/L Anion Gap 7 Blood Urea Nitrogen 17 mg/dL Creatinine 0.6 mg/dL Estimated GFR (Cockcroft-Gault) 121.8 Glucose Level 130 mg/dL Calcium Level 8.2 mg/dL Magnesium Level 1.8 mg/dL URINE CULTURE RES 1 Final Comment Mixed urogenital isiah BLOOD CULTURE Preliminary NO GROWTH AFTER 2 DAYS Imaging: CXR 04/19 pending PE: GEN: NAD, knitting, Dr. Suggs present HEENT: left eye ecchymosis LUNGS: room air ABD: towel covering abdomen NEURO/PSYCH: A & O 3 A/P: Chronic fistulae/drainage, chronic anemia E.coli sepsis -- Stable from GI standpoint. MIESHA RICO Apr 19, 2019 11:56
--- NOTE | 2019-04-19 12:24 | RAD ---
EXAM: CHEST ONE VIEW. HISTORY: PICC line placement. COMPARISON: 04/13/2019. FINDINGS: A frontal view of the chest is obtained. No PICC line is visualized. A right subclavian dual-lumen catheter has its tip in the superior vena cava. It appears to have been retracted versus replaced since prior study. The inspiration is small. Interstitial opacities in the bases indicate atelectasis or mild pulmonary edema. There is no pneumothorax or pleural effusion. The heart is not enlarged. There are atherosclerotic calcifications of the aorta. IMPRESSION: 1. No PICC line is visualized. Correlate with instrumentation. 2. Basilar atelectasis versus mild pulmonary edema. Electronically signed by: Niles Butt MD (04/19/2019 12:21 PM) [facility]
[2019-04-19] MEDS: cefTRIAXone IV Push 1 GM VIAL. IVP SCH (12:40)
[2019-04-19] MEDS ORDERED: HEPARIN PF 500 UNIT/5 ML DISP.SYRIN. ONE (12:43)
[2019-04-19] MEDS ORDERED: LIDOCAINE 1%/EPI 1:100,000 20 ML VIAL. ONE (12:43)
[2019-04-19] MEDS ORDERED: fentaNYL PF VIAL 100 MCG/2 ML VIAL ONE (13:08)
[2019-04-19] MEDS ORDERED: MIDAZOLAM HCL/PF 2 MG/2 ML VIAL. ONE (13:08)
[2019-04-19] MEDS: TPN PER PHARMACY MC PRN (13:09)
--- NOTE | 2019-04-19 13:10 | NUR ---
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 TPN B:Pertinent PMH: Long-term TPN Height: 5 feet, 4 inches Weight: 54.6 kg Current diet: Regular LABS: Sodium: 142 Potassium: 4.2 Chloride: 107 Calcium: 8.2 Corrected Calcium: 9.88 Magnesium: 1.8 CO2: 28 SCr: 0.6 Glucose: 130 Albumin: 1.9 AST: 17 ALT: 7 TPN FORMULA: TPN TYPE: Central Continuous AMINO ACIDS: 90 gm DEXTROSE: 285 gm LIPIDS: 35 gm SODIUM CHLORIDE: 200 mEq POTASSIUM CHLORIDE: 20 mEq POTASSIUM PHOSPHATE: 13.6 mmol MAGNESIUM: 24 mEq CALCIUM: 10 mEq MULTIPLE VITAMIN: 10 ml TRACE ELEMENTS: 1 ml TPN PLAN: No changes R: Continue TPN Will monitor electrolytes, glucose, and tolerance to TPN. Sandra Muñiz RPH, 04/19/19 1313
[2019-04-19] MEDS ORDERED: LIDOCAINE 1%/EPI 1:100,000 20 ML VIAL. INJ ONE (13:45)
[2019-04-19] MEDS ORDERED: HEPARIN PF 500 UNIT/5 ML DISP.SYRIN. IVP ONE (13:45)
--- NOTE | 2019-04-19 13:48 | NUR ---
Patient to IR for powerline exchange over wire. Patient tolerated well with no issues, vitals stable, no sedation.
--- NOTE | 2019-04-19 15:01 | NUR ---
SW following pt. CLARICE phoned and faxed updates to [facility] and [facility]. Spoke with Shashi, Pharmacist at [facility] and TPN is already prepared. CLARICE discussed pt might need IV abx upon dc. CLARICE will continue to follow pt.
[2019-04-19] MEDS ORDERED: AMINO ACID IV SCH ×10 (22:00)
[2019-04-19] MEDS ORDERED: [UNRECOGNIZED DRUG - OTHER] IV SCH ×10 (22:00)
[2019-04-19] MEDS ORDERED: DEXTROSE 70% IV SCH ×10 (22:00)
[2019-04-19] MEDS ORDERED: TOTAL PARENTERAL NUTRITION IV SCH ×10 (22:00)
[2019-04-20 03:55] VITALS: BP 145/78
[2019-04-20] MEDS: HYDROmorphone 2 MG/ML VIAL IV PRN ×3 (04:12→15:43)
[2019-04-20 07:58] VITALS: BP 141/78
[2019-04-20] MEDS: PANTOPRAZOLE 40 MG TABLET.DR. PO SCH (08:26)
[2019-04-20] MEDS: SERTRALINE 50 MG TABLET. PO SCH (08:27)
[2019-04-20] MEDS: amLODIPine BESYLATE 5 MG TABLET PO SCH (08:28)
--- NOTE | 2019-04-20 10:06 | PDOC ---
Infectious Disease Note Subjective Subjective Feeling well No F/C/S/SOA/rash. No pain at new line site. No visual changes denies vomiting Abd drainage is less Vital Sign Vital Signs Vital Signs Date Time Temp Pulse Resp B/P (MAP) Pulse Ox O2 Delivery O2 Flow Rate FiO2 04/20/19 08:28 83 141/78 04/20/19 07:58 98.1 18 100 Room Air 98.1 Physical Exam PHYSICAL EXAM CONSTITUTIONAL: She is pleasant. She is cooperative. She is in no acute distress. She is in bed but a little slower to respond but did smile HEENT: Pupils are equal and reactive. EOMI. She has normal conjunctivae. Left eye echymosis stabel. Oral cavity, pharynx is clear without signs of any thrush. NECK: Supple, no JVD. LUNGS: Clear to auscultation bilaterally. HEART: S1, S2. Right-sided chest PICC line without signs of any complications. There is no streaking or swelling. ABDOMEN: Enterocutaneous fistula with a small hole. She has had some minimal excoriation. She has some cobblestoning of the area around it. There are some small areas about the area with pinpoint openings, but there is no gross pus or fluid collection. No gross fluctuance. EXTREMITIES: Without clubbing or cyanosis. No gross edema. SKIN: Warm to touch without signs of rash. NEUROLOGIC: She is alert and oriented to me/[facility]. nonfocal. PSYCHIATRIC: Affect is pleasant Labs Lab Laboratory Tests Test 04/19/19 11:05 White Blood Count 4.1 x10^3/uL (4.0-11.0) Red Blood Count 2.98 x10^6/uL (3.50-5.40) Hemoglobin 8.2 g/dL (12.0-15.5) Hematocrit 25.1 % (36.0-47.0) Mean Corpuscular Volume 84 fL (79-100) Mean Corpuscular Hemoglobin 28 pg (25-35) Mean Corpuscular Hemoglobin Concent 33 g/dL (31-37) Red Cell Distribution Width 18.6 % (11.5-14.5) Platelet Count 373 x10^3/uL (140-400) Neutrophils (%) (Auto) 53 % (31-73) Lymphocytes (%) (Auto) 30 % (24-48) Monocytes (%) (Auto) 8 % (0-9) Eosinophils (%) (Auto) 5 % (0-3) Basophils (%) (Auto) 3 % (0-3) Neutrophils # (Auto) 2.2 x10^3/uL (1.8-7.7) Lymphocytes # (Auto) 1.2 x10^3/uL (1.0-4.8) Monocytes # (Auto) 0.3 x10^3/uL (0.0-1.1) Eosinophils # (Auto) 0.2 x10^3/uL (0.0-0.7) Basophils # (Auto) 0.1 x10^3/uL (0.0-0.2) Sodium Level 142 mmol/L (136-145) Potassium Level 4.2 mmol/L (3.5-5.1) Chloride Level 107 mmol/L (98-107) Carbon Dioxide Level 28 mmol/L (21-32) Anion Gap 7 (6-14) Blood Urea Nitrogen 17 mg/dL (7-20) Creatinine 0.6 mg/dL (0.6-1.0) Estimated GFR (Cockcroft-Gault) 121.8 Glucose Level 130 mg/dL (70-99) Calcium Level 8.2 mg/dL (8.5-10.1) Magnesium Level 1.8 mg/dL (1.8-2.4) Micro BLOOD CULTURE LC Final Preliminary report Final report BLD CULT RESULT 1 Final Gram negative rods Escherichia coli Performed at: - [facility], [place], [place] [id number] Plater Helper: HU Good MD, Phone: [phone] ANTIMICROBIAL SUSCEPTIBILITY Final Comment S = Susceptible; I = Intermediate; R = Resistant P = Positive; N = Negative MICS are expressed in micrograms per mL Antibiotic RSLT#1 RSLT#2 RSLT#3 RSLT#4 Amoxicillin/Clavulanic Acid S<=2 Ampicillin S<=2 Cefepime S<=0.12 Ceftriaxone S<=0.25 Cefuroxime S =4 Ciprofloxacin S<=0.25 Ertapenem S<=0.12 Gentamicin S<=1 Imipenem S<=0.25 Levofloxacin S<=0.12 Meropenem S<=0.25 Nitrofurantoin S<=16 Piperacillin/Tazobactam S<=4 Tetracycline S<=1 Tobramycin S<=1 Trimethoprim/Sulfa S<=20 Performed at: DA - [facility] [address] [facility] [address], [place], [place] [id number] Plater Helper: HU Good MD, Phone: [phone] Objective Assessment sepsis - POA 04/12 E coli clinically looking better Line changed 04/14 Fever- better Left eye echymosis after fall - CT neg Weakness Abd pain Ec fisula Plan Plan of Care david can be d/c ed at discharge repeat bc neg JOSSY TATUM MD Apr 20, 2019 10:06
--- NOTE | 2019-04-20 10:41 | PDOC ---
PROGRESS NOTES Subjective Subjective feels well. has less LE edema. afebrile. yesterdays lab reviewed. bp is better. picc working,. Objective Objective Vital Signs Date Time Temp Pulse Resp B/P (MAP) Pulse Ox O2 Delivery O2 Flow Rate FiO2 04/20/19 08:28 83 141/78 04/20/19 07:58 98.1 18 100 Room Air 98.1 04/17/19 18:24 2.0 Intake and Output 04/20/19 07:00 Intake Total 1450 ml Balance 1450 ml Intake Oral 1450 ml # Voids 11 # Bowel Movements 1 Physical Exam Abdomen: Soft, Other (EC fistula) Heart: Regular rate, Normal S1, Normal S2 Extremities: Other (bilateral LE edema 1 to 2 plus) General: Alert HEENT: Atraumatic Lungs: Clear to auscultation Neuro: Normal speech Psych/Mental Status: Mental status NL Skin: No rashes Assessment Assessment ProblemsE. coli bacteremia and Sepsis. improved. suspect PICC line sepsis. PICC exchanged last week 2. 3. Enterocutaneous fistula. 4. Enterovesical fistula. Urine cultures will not be too helpful because of an enterovesical fistula. 5. Severe hypokalemia.treated 6. Hypertension. bp is better 7. Anemia of chronic disease. bilateral LE edema better Medical Problems: (1) Enterocutaneous fistula Status: Acute Plan Plan of Care dismiss today d/c ernst per ID Comment Review of Relevant I have reviewed the following items lucila (where applicable) has been applied. Labs Laboratory Tests Test 04/19/19 11:05 White Blood Count 4.1 x10^3/uL (4.0-11.0) Red Blood Count 2.98 x10^6/uL (3.50-5.40) Hemoglobin 8.2 g/dL (12.0-15.5) Hematocrit 25.1 % (36.0-47.0) Mean Corpuscular Volume 84 fL (79-100) Mean Corpuscular Hemoglobin 28 pg (25-35) Mean Corpuscular Hemoglobin Concent 33 g/dL (31-37) Red Cell Distribution Width 18.6 % (11.5-14.5) Platelet Count 373 x10^3/uL (140-400) Neutrophils (%) (Auto) 53 % (31-73) Lymphocytes (%) (Auto) 30 % (24-48) Monocytes (%) (Auto) 8 % (0-9) Eosinophils (%) (Auto) 5 % (0-3) Basophils (%) (Auto) 3 % (0-3) Neutrophils # (Auto) 2.2 x10^3/uL (1.8-7.7) Lymphocytes # (Auto) 1.2 x10^3/uL (1.0-4.8) Monocytes # (Auto) 0.3 x10^3/uL (0.0-1.1) Eosinophils # (Auto) 0.2 x10^3/uL (0.0-0.7) Basophils # (Auto) 0.1 x10^3/uL (0.0-0.2) Sodium Level 142 mmol/L (136-145) Potassium Level 4.2 mmol/L (3.5-5.1) Chloride Level 107 mmol/L (98-107) Carbon Dioxide Level 28 mmol/L (21-32) Anion Gap 7 (6-14) Blood Urea Nitrogen 17 mg/dL (7-20) Creatinine 0.6 mg/dL (0.6-1.0) Estimated GFR (Cockcroft-Gault) 121.8 Glucose Level 130 mg/dL (70-99) Calcium Level 8.2 mg/dL (8.5-10.1) Magnesium Level 1.8 mg/dL (1.8-2.4) Laboratory Tests Test 04/19/19 11:05 White Blood Count 4.1 x10^3/uL (4.0-11.0) Red Blood Count 2.98 x10^6/uL (3.50-5.40) Hemoglobin 8.2 g/dL (12.0-15.5) Hematocrit 25.1 % (36.0-47.0) Mean Corpuscular Volume 84 fL (79-100) Mean Corpuscular Hemoglobin 28 pg (25-35) Mean Corpuscular Hemoglobin Concent 33 g/dL (31-37) Red Cell Distribution Width 18.6 % (11.5-14.5) Platelet Count 373 x10^3/uL (140-400) Neutrophils (%) (Auto) 53 % (31-73) Lymphocytes (%) (Auto) 30 % (24-48) Monocytes (%) (Auto) 8 % (0-9) Eosinophils (%) (Auto) 5 % (0-3) Basophils (%) (Auto) 3 % (0-3) Neutrophils # (Auto) 2.2 x10^3/uL (1.8-7.7) Lymphocytes # (Auto) 1.2 x10^3/uL (1.0-4.8) Monocytes # (Auto) 0.3 x10^3/uL (0.0-1.1) Eosinophils # (Auto) 0.2 x10^3/uL (0.0-0.7) Basophils # (Auto) 0.1 x10^3/uL (0.0-0.2) Sodium Level 142 mmol/L (136-145) Potassium Level 4.2 mmol/L (3.5-5.1) Chloride Level 107 mmol/L (98-107) Carbon Dioxide Level 28 mmol/L (21-32) Anion Gap 7 (6-14) Blood Urea Nitrogen 17 mg/dL (7-20) Creatinine 0.6 mg/dL (0.6-1.0) Estimated GFR (Cockcroft-Gault) 121.8 Glucose Level 130 mg/dL (70-99) Calcium Level 8.2 mg/dL (8.5-10.1) Magnesium Level 1.8 mg/dL (1.8-2.4) Microbiology 04/17/19 Blood Culture - Preliminary, Resulted NO GROWTH AFTER 2 DAYS 04/14/19 Urine Culture - Final, Complete 04/14/19 Urine Culture Result 1 (ROYA) - Final, Complete 04/14/19 Aerobic Culture - Final, Complete 04/14/19 Aerobic Culture Result 1 (ROYA) - Final, Complete 04/14/19 Gram Stain - Final, Complete 04/14/19 Gram Stain Result 1 (ROYA) - Final, Complete 04/14/19 Gram Stain Result 2 (ROYA) - Final, Complete Medications Current Medications Hydromorphone HCl (Dilaudid) 1 mg PRN Q2HR PRN IV/SQ PAIN GREATER THAN 3/10 Last administered on 04/12/19at 22:12; Start 04/12/19 at 20:45; Stop 04/13/19 at 08:11; Status DC Ondansetron HCl (Zofran) 4 mg 1X ONCE IV Last administered on 04/12/19 21:02; Start 04/12/19 at 20:45; Stop 04/12/19 at 20:46; Status DC Sodium Chloride 1,000 ml @ 1,000 mls/hr 1X ONCE IV Last administered on 04/12/19at 20:56; Start 04/12/19 at 20:45; Stop 04/12/19 at 21:44; Status DC Piperacillin Sod/ Tazobactam Sod 3.375 gm/Sodium Chloride 50 ml @ 100 mls/hr 1X ONCE IV Last administered on 04/12/19at 22:30; Start 04/12/19 at 22:15; Stop 04/12/19 at 22:44; Status DC Linezolid/Dextrose 300 ml @ 300 mls/hr Q12HR IV Last administered on 04/15/19at 21:06; Start 04/13/19 at 09:00; Stop 04/16/19 at 07:38; Status DC Ondansetron HCl (Zofran) 4 mg PRN Q8HRS PRN IV NAUSEA/VOMITING Last administered on 04/13/19at 11:02; Start 04/12/19 at 22:15; Stop 04/13/19 at 22:14; Status DC Sodium Chloride 1,000 ml @ 100 mls/hr Q10H IV Last administered on 04/12/19 23:23; Start 04/12/19 at 22:15; Stop 04/13/19 at 08:14; Status DC Linezolid/Dextrose 300 ml @ 300 mls/hr 1X ONCE IV Last administered on 04/12/19at 23:24; Start 04/12/19 at 22:30; Stop 04/12/19 at 23:29; Status DC Potassium Chloride (Klor-Con) 60 meq 1X ONCE PO Last administered on 04/12/19at 23:29; Start 04/12/19 at 23:00; Stop 04/12/19 at 23:01; Status DC Influenza Virus Vaccine Quadrival (Afluria Quad 2019-20 (3yr Up) Syringe) 0.5 ml ONCE ONCE VAX IM Last administered on 04/14/19at 12:35; Start 04/13/19 at 09:00; Stop 04/13/19 at 09:01; Status DC Hydromorphone HCl (Dilaudid) 2 mg PRN Q4HRS PRN IV PAIN Last administered on 04/20/19at 04:12; Start 04/13/19 at 05:15 Amlodipine Besylate (Norvasc) 5 mg DAILY PO ; Start 04/13/19 at 09:00; Stop 04/13/19 at 12:07; Status DC Hydromorphone HCl (Dilaudid) 2 mg PRN QID PRN PO MODERATE - SEVERE PAIN; Start 04/13/19 at 05:30 Acetaminophen (Tylenol) 650 mg PRN Q6HRS PRN PO MILD PAIN / TEMP; Start 04/13/19 at 05:30 Sertraline HCl (Zoloft) 50 mg DAILY PO Last administered on 04/20/19at 08:27; Start 04/13/19 at 09:00 Lorazepam (Ativan) 0.5 mg PRN Q6HRS PRN PO ANXIETY; Start 04/13/19 at 05:30 Zolpidem Tartrate (Ambien) 5 mg PRN QHS PRN PO INSOMNIA Last administered on 06/14/18at 21:32; Start 04/13/19 at 05:30 Ondansetron HCl (Zofran Odt) 4 mg PRN Q8HRS PRN PO NAUSEA/VOMITING; Start 04/13/19 at 05:30 Pantoprazole Sodium (Protonix) 40 mg DAILYAC PO Last administered on 04/20/19at 08:26; Start 04/13/19 at 07:30 Meropenem 500 mg/ Sodium Chloride 50 ml @ 100 mls/hr Q6HRS IV Last administered on 04/17/19at 06:13; Start 04/13/19 at 08:30; Stop 04/17/19 at 10:05; Status DC Micafungin Sodium 100 mg/Dextrose 100 ml @ 100 mls/hr Q24H IV Last administered on 04/15/19at 08:41; Start 04/13/19 at 09:00; Stop 04/16/19 at 07:38; Status DC Daptomycin 280 mg/ Sodium Chloride 50 ml @ 100 mls/hr ONCE ONCE IV Last administered on 04/13/19at 08:48; Start 04/13/19 at 08:30; Stop 04/13/19 at 08:59; Status DC Ondansetron HCl (Zofran) 4 mg 1X ONCE IVP Last administered on 04/13/19at 11:00; Start 04/13/19 at 11:00; Stop 04/13/19 at 11:01; Status DC Potassium Chloride/Dextrose/ Sod Cl 1,000 ml @ 75 mls/hr [id number] IV Last administered on 04/13/19at 12:27; Start 04/13/19 at 12:00; Stop 04/13/19 at 21:59; Status DC Potassium Chloride/Water 50 ml @ 25 mls/hr Q2H IV Last administered on 04/13/19at 17:03; Start 04/13/19 at 13:00; Stop 04/13/19 at 16:59; Status DC Ondansetron HCl (Zofran) 4 mg PRN Q6HRS PRN IVP NAUSEA/VOMITING Last administered on 04/14/19at 21:27; Start 04/13/19 at 12:00 Info (Tpn Per Pharmacy) 1 each PRN DAILY PRN MC SEE COMMENTS Last administered on 04/19/19at 13:09; Start 04/13/19 at 13:00 Sodium Chloride 200 meq/Potassium Chloride 60 meq/ Potassium Phosphate 13.6 mmol/Magnesium Sulfate 15 meq/ Calcium Gluconate 10 meq/ Multivitamins 10 ml/Chromium/ Copper/Manganese/ Seleni/Zn 1 ml/ Total Parenteral Nutrition/Amino Acids/Dextrose/ Fat Emulsion Intravenous 1,920 ml @ 80 mls/hr TPN CONT IV Last administered on 04/13/19at 22:04; Start 04/13/19 at 22:00; Stop 04/14/19 at 21:59; Status DC Lidocaine/ Epinephrine (LIDOCAINE 1%-EPI 1:100,000 Multi-Dose) 20 ml STK-MED ONCE .ROUTE ; Start 04/14/19 at 09:50; Stop 04/14/19 at 09:50; Status DC Midazolam HCl (Versed) 2 mg STK-MED ONCE .ROUTE ; Start 04/14/19 at 10:28; Stop 04/14/19 at 10:29; Status DC Fentanyl Citrate (Fentanyl 2ml Vial) 100 mcg STK-MED ONCE .ROUTE ; Start 04/14/19 at 10:29; Stop 04/14/19 at 10:29; Status DC Midazolam HCl (Versed) 2 mg 1X ONCE IV Last administered on 04/14/19at 11:08; Start 04/14/19 at 11:00; Stop 04/14/19 at 11:01; Status DC Fentanyl Citrate (Fentanyl 2ml Vial) 100 mcg 1X ONCE IV Last administered on 04/14/19at 11:07; Start 04/14/19 at 11:00; Stop 04/14/19 at 11:01; Status DC Lidocaine/ Epinephrine (LIDOCAINE 1%-EPI 1:100,000 Multi-Dose) 20 ml 1X ONCE INJ Last administered on 04/14/19at 11:05; Start 04/14/19 at 11:00; Stop 04/14/19 at 11:01; Status DC Magnesium Sulfate 100 ml @ 25 mls/hr 1X ONCE IV Last administered on 04/14/19a t 13:09; Start 04/14/19 at 13:00; Stop 04/14/19 at 16:59; Status DC Sodium Chloride 200 meq/Potassium Chloride 60 meq/ Potassium Phosphate 13.6 mmol/Magnesium Sulfate 20 meq/ Calcium Gluconate 10 meq/ Multivitamins 10 ml/Chromium/ Copper/Manganese/ Seleni/Zn 1 ml/ Total Parenteral Nutrition/Amino Acids/Dextrose/ Fat Emulsion Intravenous 1,920 ml @ 80 mls/hr TPN CONT IV Last administered on 04/15/19at 01:46; Start 04/14/19 at 22:00; Stop 04/15/19 at 21:59; Status DC Lidocaine HCl (Xylocaine 2% Topical 5gm Tube) 1 sang PRN Q2HR PRN TP pain Last administered on 04/15/19at 05:39; Start 04/15/19 at 01:30 Sodium Chloride 200 meq/Potassium Chloride 60 meq/ Potassium Phosphate 13.6 mmol/Magnesium Sulfate 20 meq/ Calcium Gluconate 10 meq/ Multivitamins 10 ml/Chromium/ Copper/Manganese/ Seleni/Zn 1 ml/ Total Parenteral Nutrition/Amino Acids/Dextrose/ Fat Emulsion Intravenous 1,920 ml @ 80 mls/hr TPN CONT IV Last administered on 04/15/19at 21:58; Start 04/15/19 at 22:00; Stop 04/16/19 at 21:59; Status DC Sodium Chloride 200 meq/Potassium Chloride 20 meq/ Potassium Phosphate 13.6 mmol/Magnesium Sulfate 20 meq/ Calcium Gluconate 10 meq/ Multivitamins 10 ml/Chromium/ Copper/Manganese/ Seleni/Zn 1 ml/ Total Parenteral Nutrition/Amino Acids/Dextrose/ Fat Emulsion Intravenous 1,920 ml @ 80 mls/hr TPN CONT IV Last administered on 04/16/19 21:28; Start 04/16/19 at 22:00; Stop 04/17/19 at 21:59; Status DC Ceftriaxone Sodium (Rocephin) 1 gm Q24H IVP Last administered on 04/19/19at 12:40; Start 04/17/19 at 11:00 Furosemide (Lasix) 20 mg 1X ONCE IVP Last administered on 04/17/19 12:27; Start 04/17/19 at 11:30; Stop 04/17/19 at 11:31; Status DC Amlodipine Besylate (Norvasc) 5 mg DAILY PO Last administered on 04/20/19 08:28; Start 04/17/19 at 12:00 Sodium Chloride 200 meq/Potassium Chloride 20 meq/ Potassium Phosphate 13.6 mmol/Magnesium Sulfate 20 meq/ Calcium Gluconate 10 meq/ Multivitamins 10 ml/Chromium/ Copper/Manganese/ Seleni/Zn 1 ml/ Total Parenteral Nutrition/Amino Acids/Dextrose/ Fat Emulsion Intravenous 1,920 ml @ 80 mls/hr TPN CONT IV Last administered on 04/17/19at 22:37; Start 04/17/19 at 22:00; Stop 04/18/19 at 21:59; Status DC Alteplase, Recombinant (Cathflo For Central Catheter Clearance) 1 mg PRN DAILY PRN INT CAT SEE COMMENTS Last administered on 04/19/19at 08:35; Start 04/18/19 at 06:00 Furosemide (Lasix) 20 mg 1X ONCE IVP Last administered on 04/18/19at 12:23; Start 04/18/19 at 10:15; Stop 04/18/19 at 10:20; Status DC Sodium Chloride 200 meq/Potassium Chloride 20 meq/ Potassium Phosphate 13.6 mmol /Magnesium Sulfate 24 meq/ Calcium Gluconate 10 meq/ Multivitamins 10 ml/Chromium/ Copper/Manganese/ Seleni/Zn 1 ml/ Total Parenteral Nutrition/Amino Acids/Dextrose/ Fat Emulsion Intravenous 1,920 ml @ 80 mls/hr TPN CONT IV Last administered on 04/18/19at 23:00; Start 04/18/19 at 22:00; Stop 04/19/19 at 21:59; Status DC Lidocaine/ Epinephrine (LIDOCAINE 1%-EPI 1:100,000 Multi-Dose) 20 ml STK-MED ONCE .ROUTE ; Start 04/19/19 at 12:43; Stop 04/19/19 at 12:44; Status DC Heparin Sodium (Porcine) (Hep Lock Adult) 500 unit STK-MED ONCE .ROUTE ; Start 04/19/19 at 12:43; Stop 04/19/19 at 12:44; Status DC Sodium Chloride 200 meq/Potassium Chloride 20 meq/ Potassium Phosphate 13.6 mmol/Magnesium Sulfate 24 meq/ Calcium Gluconate 10 meq/ Multivitamins 10 ml/Chromium/ Copper/Manganese/ Seleni/Zn 1 ml/ Total Parenteral Nutrition/Amino Acids/Dextrose/ Fat Emulsion Intravenous 1,920 ml @ 80 mls/hr TPN CONT IV Last administered on 04/19/19at 22:20; Start 04/19/19 at 22:00; Stop 04/20/19 at 21:59 Midazolam HCl (Versed) 2 mg STK-MED ONCE .ROUTE ; Start 04/19/19 at 13:08; Stop 04/19/19 at 13:09; Status DC Fentanyl Citrate (Fentanyl 2ml Vial) 100 mcg STK-MED ONCE .ROUTE ; Start 04/19/19 at 13:08; Stop 04/19/19 at 13:09; Status DC Lidocaine/ Epinephrine (LIDOCAINE 1%-EPI 1:100,000 Multi-Dose) 20 ml 1X ONCE INJ ; Start 04/19/19 at 13:45; Stop 04/19/19 at 13:46; Status DC Heparin Sodium (Porcine) (Hep Lock Adult) 500 unit 1X ONCE IVP ; Start 04/19/19 at 13:45; Stop 04/19/19 at 13:46; Status DC Active Scripts Active Tylenol (Acetaminophen) 325 Mg Tablet 650 Mg PO PRN Q6HRS PRN Amlodipine Besylate 5 Mg Tablet 5 Mg PO DAILY [Pantoprazole] 40 MG Tablet.dr 40 Mg PO DAILYAC 30 Days Zinc Oxide 56.7 Gm Oint...g. 1 Sang TP BID Ambien (Zolpidem Tartrate) 5 Mg Tablet 5 Mg PO PRN QHS PRN 30 Days [Tpn Per Pharmacy] 1 EACH Each 1 Each MC PRN DAILY PRN TPN at 85cc/hour Sertraline Hcl 50 Mg Tablet 50 Mg PO DAILY 30 Days Lidocaine 35.44 Gm Oint...g. 1 Sang TP BID Reported Zofran Odt (Ondansetron) 4 Mg Tab.rapdis 1 Tab SL PRN Q8HRS PRN Zinc Oxide 56.7 Gm Oint...g. 56.7 Gm TP PRN BID Dilaudid (Hydromorphone Hcl) 2 Mg Tablet 1 Tab PO PRN QID PRN Lorazepam 0.5 Mg Tablet 0.5 Mg PO Q6HRS PRN Vitals/I & O Vital Sign - Last 24 Hours 04/19/19 04/19/19 04/19/19 04/19/19 11:57 13:35 15:35 17:35 Temp 98.2 98.2 98.2 98.2 Pulse 85 95 78 Resp 18 16 18 B/P (MAP) 149/84 (105) 166/86 (112) 169/91 (117) Pulse Ox 99 100 100 O2 Delivery Room Air Room Air Room Air Room Air 04/19/19 04/19/19 04/19/19 04/19/19 19:35 20:30 22:21 22:51 Temp 98.1 98.1 Pulse 81 Resp 18 B/P (MAP) 133/76 (95) Pulse Ox 96 O2 Delivery Room Air Room Air Room Air Room Air 04/19/19 04/19/19 04/20/19 04/20/19 22:51 23:29 03:55 04:12 Temp 98.0 98.5 98.0 98.5 Pulse 88 86 Resp 18 16 B/P (MAP) 167/77 (107) 145/78 (100) Pulse Ox 97 98 O2 Delivery Room Air Room Air Room Air Room Air 04/20/19 04/20/19 07:58 08:28 Temp 98.1 98.1 Pulse 83 83 Resp 18 B/P (MAP) 141/78 (99) 141/78 Pulse Ox 100 O2 Delivery Room Air Intake and Output 04/19/19 04/19/19 04/20/19 15:00 23:00 07:00 Intake Total 300 ml 600 ml 550 ml Balance 300 ml 600 ml 550 ml Nutrition Consultation Dietary Evaluation: Recommendations by RD: Dietary education by RD, PPN/TPN Comments: REC continue TPN Expected Outcomes/Goals: to meet >75% est nutr needs via TPN- goal ongoing Malnutrition Findings: Body Fat Depletion (Non Severe: Mild Depletion Weight Status: Underweight BENITA LUTZ MD Apr 20, 2019 10:41
[2019-04-20] MEDS: cefTRIAXone IV Push 1 GM VIAL. IVP SCH (10:46)
--- NOTE | 2019-04-20 10:49 | SNU/HH DC ---
DISCHARGE WITH HOME HEALTH DISCHARGE INFORMATION: Discharge Date: Apr 20, 2019 Final Diagnosis: Problems e.coli bacteremia and sepsis Medical Problems: (1) Enterocutaneous fistula Status: Acute Condition on Discharge: Stable CODE STATUS: Code Status: Full HOME HEALTH: Face to Face: I certify this patient is under my care and that I, or a nurse practitioner or physician's merchandising assistant working with me, had a face to face encounter that meets the physician face to face encounter requirements with this patient on [04/20/19]. RN For Eval/Treatment: Yes Pt Meets Homebound Status: Other: (continuous total parental nutrition) POST DISCHARGE ORDERS: Activity Instructions for Disc: Activity as tolerated Weight Bearing Status after Di: As tolerated Bathing Instructions: Shower-keep dressing dry, No Tub Bath until see DIET AFTER DISCHARGE: TPN new formula at 85 cc/hour Wound/Incision Care: Reinforce dressing PRN, Routine catheter care CHECKS AFTER DISCHARGE: Checks after discharge: Check blood press - daily, Check your Temp as needed, Weigh Yourself Daily Comment: IJ/chest FOLLOW-UP: PCP to follow Home Health: dr. lutz Follow up with: dr. lutz next week DC TO SNF LABS: fax lab results to dr. lutz. fax [phone] Additional Instructions: cbc and cmp and magnesium and phosphorus every wednesday via home health and fax results to dr. lutz TREATMENT/EQUIPMENT ORDERS: Adaptive Equipment Issued: None CERTIFICATION STATEMENT: Certification Statement: Certification Statement: Based on the above finding, I certify that this patient is confined to the home and needs intermittent residential care, physical therapy and/or speech therapy, or continues to need occupational therapy.~ This patient is under my care, and I have initiated the establishment of the plan of care.~ This patient will be followed by myself or a community physician who will periodically review the plan of care. Home Meds Active Scripts Acetaminophen (TYLENOL) 325 Mg Tablet, 650 MG PO PRN Q6HRS PRN for MILD PAIN / TEMP, #30 TAB Prov:BENITA LUTZ MD 01/03/19 Amlodipine Besylate (AMLODIPINE BESYLATE) 5 Mg Tablet, 5 MG PO DAILY for HTN, #30 TAB Prov:BENITA LUTZ MD 01/03/19 [Pantoprazole] [address] Stuart Conflict Check, 40 MG PO DAILYAC for gerd for 30 Days Prov:BENITA LUTZ MD 08/13/18 Zinc Oxide (ZINC OXIDE) 56.7 Gm Oint...g., 1 WANDY TP BID for abdominal skin excoriation, #30 GR Prov:BENITA LUTZ MD 07/11/18 Zolpidem Tartrate (AMBIEN) 5 Mg Tablet, 5 MG PO PRN QHS PRN for INSOMNIA for 30 Days, TAB Prov:BENITA LUTZ MD 06/23/18 [Tpn Per Pharmacy] 1 EACH EACH No Conflict Check, 1 EACH PRN DAILY PRN for SEE COMMENTS TPN at 85cc/hour Prov:BENITA LUTZ MD 06/23/18 Sertraline Hcl (SERTRALINE HCL) 50 Mg Tablet, 50 MG PO DAILY for 30 Days, #30 TAB Prov:BENITA LUTZ MD 01/05/17 Lidocaine (LIDOCAINE) 35.44 Gm Oint...g., 1 WANDY TP BID, #30 Prov:BENITA LUTZ MD 12/18/15 Reported Medications Ondansetron (ZOFRAN ODT) 4 Mg Tab.rapdis, 1 TAB SL PRN Q8HRS PRN for NAUSEA/VOMITING 01/09/17 Zinc Oxide (ZINC OXIDE) 56.7 Gm Oint...g., 56.7 GM TP PRN BID 01/09/17 Hydromorphone Hcl (DILAUDID) 2 Mg Tablet, 1 TAB PO PRN QID PRN for PAIN 01/09/17 Lorazepam (LORAZEPAM) 0.5 Mg Tablet, 0.5 MG PO Q6HRS PRN for ANXIETY, TAB 08/31/16 BENITA LUTZ MD Apr 20, 2019 10:49
--- NOTE | 2019-04-20 10:54 | PDOC ---
Provider Note Provider Note discharge summary dictated # [id number] BENITA LUTZ MD Apr 20, 2019 10:54
--- NOTE | 2019-04-20 11:11 | DS ---
DATE OF DISCHARGE: 04/20/2019 CONSULTANTS: Include Dr. Garcia Suggs, Dr. Almanza, Dr. Ovalle and also Dr. Telles, the interventional radiologist. PROCEDURE: Replacement of her PICC line over a guidewire. FINAL DIAGNOSES: 1. Escherichia coli bacteremia and sepsis, thought to be secondary to an infected PICC line. 2. Enterocutaneous fistula. 3. History of enterovesical fistula. 4. Severe hypokalemia. 5. Hypertension. 6. Anemia of chronic disease. 7. Bilateral lower extremity edema. HOSPITAL COURSE: The patient is a 64-year-old -Fil[place] female with history of enterocutaneous fistula and enterovesical fistula maintained on home total parenteral nutrition, admitted to [facility] through the Emergency Room 04/12/2019 with fever and chills with a temperature of 102 degrees. She denies any cough or dysuria, started on Zyvox and Zosyn, seen in consultation by Dr. Almanza and Dr. Garcia Suggs. Blood cultures were positive for E. coli. She received a dose of IV daptomycin and then was switched to Zyvox, meropenem and micafungin. When the sensitivities came back, the patient eventually was switched to IV Rocephin and she defervesced. White count was normal. She was seen by Dr. Telles and had her PICC line replaced through a guidewire as this is the last PICC line spot that she can have on her body to continue to receive her home total parenteral nutrition. She continued to do well. She has some lower extremity edema, treated with IV Lasix with some improvement. She will be dismissed to home with home health and was told to make an appointment to see Dr. Cisneros next week. She will have a CBC, CMP, magnesium and phosphorus done every Wednesday, results faxed to Dr. Cisneros and will be dismissed on Dilaudid 1-2 mg p.o. q.i.d. p.r.n. for pain, lidocaine 5% topical ointment followed by zinc oxide 20% b.i.d. to her abdominal wall, lorazepam 0.5 mg p.o. every 6 hours p.r.n. for anxiety, Protonix 40 mg p.o. daily, sertraline 50 mg p.o. daily, Ambien 5 mg at bedtime p.r.n., Tylenol 650 mg every 4 hours p.r.n., Zofran 4 mg p.o. every 6 hours p.r.n., amlodipine 5 mg every day. She will continue with her TPN at 80 mL an hour with lipids. She will have home health. BENITA CISNEROS MD DR: NABILA/jd JOB#: [id number] / [id number]
[2019-04-20 11:40] VITALS: BP 153/75
--- NOTE | 2019-04-20 11:58 | NUR ---
SW following pt. Pt will not need Iv abx. SW phoned and faxed resumption orders to [facility]. A nurse from [facility] will see pt tomorrow. Pt states her daughter will take her home tonight. Pt stated she had fallen when she was on the 4th floor and would like to know what the policy is. Pt states her daughter is mainly taking care of things. Pt declined to speak with Patient Advocate but is provided phone number if she decides she would like to someone before she leaves today. Pt verbalized understanding. Pt denies other needs at this time. Discussed with RN.
--- NOTE | 2019-04-20 12:00 | PDOC ---
Subjective: Subjective: Doing better, glad to be going home this evening. Objective: Vital Signs: Vital Signs Date Time Temp Pulse Resp B/P (MAP) Pulse Ox O2 Delivery O2 Flow Rate FiO2 04/20/19 11:40 98.2 86 18 153/75 (101) 99 Room Air 98.2 Labs: BLOOD CULTURE Preliminary NO GROWTH AFTER 3 DAYS Imaging: CXR 04/19 IMPRESSION: 1. No PICC line is visualized. Correlate with instrumentation. 2. Basilar atelectasis versus mild pulmonary edema. PE: GEN: NAD LUNGS: CTAB HEART: RRR ABD: covered with towels NEURO/PSYCH: A & O 3 A/P: Chronic fistulae/drainage, chronic anemia E.coli sepsis -- Dc per primary. MIESHA RICO Apr 20, 2019 12:00
--- NOTE | 2019-04-20 12:29 | RAD ---
Single view of the chest. 04/20/2019 12:00 PM Indication: PICC line placement Comparison: Chest radiograph, yesterday Findings: There is a right sided tunnel central venous catheter with tip at the cavoatrial junction, well-positioned. No pneumothorax or pleural effusion is seen. Heart size is normal. Bony thorax is unchanged. IMPRESSION: Expected position of right-sided power line. Otherwise stable exam Electronically signed by: Efren Dubon MD (04/20/2019 12:26 PM) [id number]
[2019-04-20 15:55] VITALS: BP 142/89
--- NOTE | 2019-04-20 18:01 | NUR ---
Discharge Note: HERMAN MONCADA Discharge instructions and discharge home medications reviewed with Patient and a copy given. All questions have been answered and understanding verbalized. The following instructions and handouts were given: follow up instructions Discontinued lines and drains: picc stayed in place for TPN. Patient discharged to home with home health via family.
--- NOTE | 2019-04-24 09:58 | RAD ---
Replacement of a right internal jugular tunnel central line April 19, 2019 Indication: Catheter retraction, poor functioning Procedure: Discussion: The procedure was explained in its entirety to the patient or the patients designated solar sales representative by a member of the treatment team, including a discussion of the risks, benefits and commonly accepted alternatives to the procedure, as well as the expected consequences of no therapy whatsoever. Discussion of the risks included, but was not limited to, those that are most frequent and those that are rare but possibly severe or life-threatening, as well as the possibility of unforeseen complications. All elements of maximal sterile barrier technique including the use of a cap, mask, sterile gown, sterile gloves, large sterile sheet, appropriate hand hygiene, and 2% chlorhexidine for cutaneous antisepsis (or acceptable alternative antiseptic per current guidelines) were followed for this procedure. A guidewire was advanced to the pre-existing catheter into the IVC. The previous catheter was removed over wire and replaced with a Which the previous ventricular length. The catheter was found to flush and aspirate normally. No immediate complications were identified. Total fluoroscopy time: 0.61 min Dose area product: Gycm2 Impression: Replacement of right internal jugular power line
== END 2019-04-20 10:50 | disposition home health service (06) | DRG 314 ==
LOC: ER 20:01 → 4 NORTH 22:00 → 6 SOUTH 04-16 00:45
PROVIDERS: ADMIT Internal Medicine; ATTEND Internal Medicine
PROC: 0J2TXYZ Change Other Device in Trunk Subcutaneous Tissue and Fascia, External Approach (ICD-10-PCS; principal; 2019-04-14)
PROC: 0J2TXYZ Change Other Device in Trunk Subcutaneous Tissue and Fascia, External Approach (ICD-10-PCS; 2019-04-19)
DX: T80.211A Bloodstream infection due to central venous catheter, initial encounter (principal); A41.51 Sepsis due to Escherichia coli [E. coli]; L03.311 Cellulitis of abdominal wall; K63.2 Fistula of intestine; N32.1 Vesicointestinal fistula; K56.609 Unspecified intestinal obstruction, unspecified as to partial versus complete obstruction; F32.9 Major depressive disorder, single episode, unspecified; E87.6 Hypokalemia; D63.8 Anemia in other chronic diseases classified elsewhere; F43.10 Post-traumatic stress disorder, unspecified; G89.29 Other chronic pain; K57.90 Diverticulosis of intestine, part unspecified, without perforation or abscess without bleeding; N18.9 Chronic kidney disease, unspecified; I12.9 Hypertensive chronic kidney disease with stage 1 through stage 4 chronic kidney disease, or unspecified chronic kidney disease; E03.9 Hypothyroidism, unspecified; K21.9 Gastro-esophageal reflux disease without esophagitis; Y83.8 Other surgical procedures as the cause of abnormal reaction of the patient, or of later complication, without mention of misadventure at the time of the procedure; Z86.718 Personal history of other venous thrombosis and embolism; Z85.41 Personal history of malignant neoplasm of cervix uteri; Z90.710 Acquired absence of both cervix and uterus; Z88.1 Allergy status to other antibiotic agents; Z91.041 Radiographic dye allergy status; Z88.5 Allergy status to narcotic agent; Z91.048 Other nonmedicinal substance allergy status; Z90.49 Acquired absence of other specified parts of digestive tract; Z87.11 Personal history of peptic ulcer disease; Z79.899 Other long term (current) drug therapy; Y92.89 Other specified places as the place of occurrence of the external cause
CPT/HCPCS: 36415; 36581; 36582; 70450; 70486; 71045; 77001; 80048; 80053; 81001; 83605; 83690; 83735; 84100; 84145; 85007; 85025; 85610; 87040; 87070; 87077; 87086; 87205; 90471; 90686; 93005; 96365; 96375; 96376; 99152; 99153; C1713; C1751; J0610; J0696; J0878; J1170; J1940; J2020; J2185; J2248; J2250; J2405; J2543; J3010; J3475; J3480; J3490; J7030; 97110; 97116; 97530; 97535; 99285-25; G0378

== ENCOUNTER 2019-11-28 14:38 | Inpatient (IN) | payer MEDICARE ==
[~2019-11-28] VITALS: Ht 162.6 cm; Wt 38.4 kg
[~2019-11-28 14:38] MED LIST changes: +DAPT350V IV; +Fluconazole PO; +METR-34 PO; +ONDA-84 PO; +VANC500V PO; -ZINC56.7 TP; +ZINC56.713 TP
[2019-11-28] MEDS ORDERED: IV NORMAL SALINE 1000ML BAG 1,000 ML IV ONE (15:15)
[2019-11-28] MEDS ORDERED: PIPERACILLIN/TAZOBACTAM 3.375 GM in IV NORMAL SALINE 50ML 50 ML IV ONE (15:30)
[2019-11-28] MEDS: HYDROmorphone 2 MG/ML VIAL IV/SQ PRN ×3 (15:38→17:49)
[2019-11-28 15:44] LABS: BASO # 0.1 x10^3/uL (0.0-0.2); BASO % 1 % (0-3); EOS # 0.3 x10^3/uL (0.0-0.7); EOS % 3 % (0-3); HEMATOCRIT 41.3 % (36.0-47.0); HEMOGLOBIN 13.9 g/dL (12.0-15.5); LYMPH # 0.8 x10^3/uL (1.0-4.8); LYMPH % 11 % (24-48); MEAN CORPUSCULAR HEMOGLOBIN 30 pg (25-35); MEAN CORPUSCULAR HGB CONC 34 g/dL (31-37); MEAN CORPUSCULAR VOLUME 91 fL (79-100); MONO # 0.6 x10^3/uL (0.0-1.1); MONO % 7 % (0-9); NEUT # 5.9 x10^3/uL (1.8-7.7); NEUT % 78 % (31-73); PLATELET COUNT 307 x10^3/uL (140-400); RED BLOOD COUNT 4.56 x10^6/uL (3.50-5.40); RED CELL DISTRIBUTION WIDTH 18.7 % (11.5-14.5); WHITE BLOOD COUNT 7.6 x10^3/uL (4.0-11.0)
[2019-11-28 15:45] LABS: BILIRUBIN,URINE NEGATIVE (NEG); CLARITY,URINE TURBID; COLOR,URINE YELLOW; NITRITE,URINE POSITIVE (NEG); PH,URINE 5.5 (<5.0-8.0); PROTEIN,URINE 30 mg/dL (NEG-TRACE); UROBILINOGEN,URINE 0.2 mg/dL (0.2 mg/dL)
[2019-11-28 15:53] LABS: CALCIUM 8.7 mg/dL (8.5-10.1); CREATININE 0.6 mg/dL (0.6-1.0); GFR 121.8; POTASSIUM 4.6 mmol/L (3.5-5.1)
[2019-11-28 15:59] LABS: ALBUMIN 2.2 g/dL (3.4-5.0); ALBUMIN/GLOBULIN RATIO 0.4 (1.0-1.7); TOTAL BILIRUBIN 0.4 mg/dL (0.2-1.0); TOTAL PROTEIN 8.2 g/dL (6.4-8.2)
--- NOTE | 2019-11-28 16:03 | PHYS DOC ---
Past Medical History Past Medical History: Anxiety, Cancer, Diverticulitis, DVT, Hypertension, UTI, Other Additional Past Medical Histor: abd pain,septicemia,Vesicoenteric fistula,cervical CA,blood clot in [place] (TULIO PALAFOX APRN) Past Surgical History: Hysterectomy, Other Additional Past Surgical Histo: bowel resection,ab fistula,BILAT HIP (TULIO PALAFOX APRN) Smoking Status: Never Smoker Alcohol Use: None Drug Use: None (TULIO PALAFOX APRN) General Adult EDM: Chief Complaint: ABDOMINAL PAIN HPI: HPI: Patient is a 64 year old female presents with her daughter who is her systems project manager for evaluation of complaints of abdominal, chest, back pain as well as fever up to 103 degrees for the past 2 days. Patient has history of multiple abdominal fistulas, multiple surgeries, most recent surgery was several weeks ago for drain placement to the left lower abdomen. Patient takes 2 mg of Dilaudid by mouth as needed every 4-6 hours for pain control. Daughter states that pain is out of control at this point. She is not having any vomiting. She is having some drainage from the fistula sites. (TULIO PALAFOX DISC PAD KNOCKOUT WORKER) Review of Systems: Review of Systems: Constitutional: + fever or chills. [] Eyes: Denies change in visual acuity. [] HENT: Denies nasal congestion or sore throat. [] Respiratory: Denies cough or shortness of breath. [] Cardiovascular: + chest pain . [] GI: + abdominal pain, denies nausea, vomiting, bloody stools or diarrhea. [] : Denies dysuria. [] Musculoskeletal: + back pain . [] Integument: Denies rash. [] Neurologic: Denies headache, focal weakness or sensory changes. [] Endocrine: Denies polyuria or polydipsia. [] Lymphatic: Denies swollen glands. [] Psychiatric: Denies depression . [] (TULIO PALAFOX APRN) Heart Score: HEART Score for Chest Pain: HEART Score for Chest Pain Response (Comments) Value History Slighlty/Non-Suspicious 0 ECG Nonspecific Repolarizatio 1 Age >45 - < 65 1 Risk Factors 1 or 2 Risk Factors 1 Troponin < Normal Limit 0 Total 3 Risk Factors: Risk Factors: DM, Current or recent (<one month) smoker, HTN, HLP, family history of CAD, obesity. Risk Scores: Score 0 - 3: 2.5% MACE over next 6 weeks - Discharge Home Score 4 - 6: 20.3% MACE over next 6 weeks - Admit for Clinical Observation Score 7 - 10: 72.7% MACE over next 6 weeks - Early Invasive Strategies (TULIO PALAFOX APRN) Current Medications: Current Medications Medications (Trade) Dose Ordered Sig/Alex Start Time Stop Time Status Last Admin Dose Admin Hydromorphone HCl (Dilaudid) 1 mg PRN Q15MIN PRN 11/28/19 15:15 11/29/19 15:14 11/28/19 15:38 1 MG Piperacillin Sod/ Tazobactam Sod 3.375 gm/Sodium Chloride 50 ml @ 100 mls/hr 1X ONCE 11/28/19 15:30 11/28/19 15:59 DC Sodium Chloride 1,000 ml @ 1,000 mls/hr 1X ONCE 11/28/19 15:15 11/28/19 16:14 11/28/19 15:38 1,000 MLS/HR (TULIO PALAFOX DISC PAD KNOCKOUT WORKER) Allergies: Allergies: Allergies Coded Allergies Type Severity Reaction Last Updated Verified Iodinated Contrast Media Allergy Severe Anaphylaxis 11/08/19 Yes vancomycin Allergy Severe Swelling 11/08/19 Yes adhesive tape Allergy Intermediate Rash 11/08/19 Yes silver Allergy Intermediate Rash, Tegaderm film, can have on abd but no where else 11/08/19 Yes codeine Adverse Reaction Severe Nausea and Vomiting 11/08/19 Yes (TULIO PALAFOX DISC PAD KNOCKOUT WORKER) Physical Exam: PE: Constitutional: Well developed, CACHECTIC, ILL appearance. [] HENT: Normocephalic, atraumatic, bilateral external ears normal, nose normal. [] Eyes: PERRLA, EOMI, conjunctiva normal, no discharge. [] Neck: Normal range of motion, no tenderness, supple, no stridor. [] Cardiovascular:Heart rate regular rhythm, no murmur [] Lungs & Thorax: Bilateral breath sounds clear to auscultation [] Abdomen: Bowel sounds normal, soft, + DIFFUSE tenderness, ABD FISTULAS C PURULENT DISCHARGE, LEFT ABD DRAIN INTACT C PURULENT DRAINAGE NOTED. [] Skin: Warm, + erythema TO LOWER ABD [] Extremities: No tenderness, no cyanosis, no clubbing, ROM intact, no edema. [] Neurologic: Alert and oriented X 3, normal motor function, normal sensory function, no focal deficits noted. [] Psychologic: Affect normal, judgement normal, mood normal. [] (TULIO PALAFOX APRN) Current Patient Data: Labs: Laboratory Tests Test 11/28/19 15:25 White Blood Count 7.6 x10^3/uL (4.0-11.0) Red Blood Count 4.56 x10^6/uL (3.50-5.40) Hemoglobin 13.9 g/dL (12.0-15.5) Hematocrit 41.3 % (36.0-47.0) Mean Corpuscular Volume 91 fL (79-100) Mean Corpuscular Hemoglobin 30 pg (25-35) Mean Corpuscular Hemoglobin Concent 34 g/dL (31-37) Red Cell Distribution Width 18.7 % (11.5-14.5) H Platelet Count 307 x10^3/uL (140-400) Neutrophils (%) (Auto) 78 % (31-73) H Lymphocytes (%) (Auto) 11 % (24-48) L Monocytes (%) (Auto) 7 % (0-9) Eosinophils (%) (Auto) 3 % (0-3) Basophils (%) (Auto) 1 % (0-3) Neutrophils # (Auto) 5.9 x10^3/uL (1.8-7.7) Lymphocytes # (Auto) 0.8 x10^3/uL (1.0-4.8) L Monocytes # (Auto) 0.6 x10^3/uL (0.0-1.1) Eosinophils # (Auto) 0.3 x10^3/uL (0.0-0.7) Basophils # (Auto) 0.1 x10^3/uL (0.0-0.2) Sodium Level 140 mmol/L (136-145) Potassium Level 4.6 mmol/L (3.5-5.1) Chloride Level 109 mmol/L (98-107) H Carbon Dioxide Level 22 mmol/L (21-32) Anion Gap 9 (6-14) Blood Urea Nitrogen 28 mg/dL (7-20) H Creatinine 0.6 mg/dL (0.6-1.0) Estimated GFR (Cockcroft-Gault) 121.8 BUN/Creatinine Ratio 47 (6-20) H Glucose Level 107 mg/dL (70-99) H Calcium Level 8.7 mg/dL (8.5-10.1) Total Bilirubin Pending Aspartate Amino Transferase (AST) Pending Alanine Aminotransferase (ALT) Pending Alkaline Phosphatase Pending Total Protein Pending Albumin Pending Albumin/Globulin Ratio Pending Lipase Pending Laboratory Tests 11/28/19 15:25 Laboratory Tests 11/28/19 15:25 Vital Signs: Vital Signs Date Time Temp Pulse Resp B/P (MAP) Pulse Ox O2 Delivery O2 Flow Rate FiO2 11/28/19 15:38 20 100 Room Air (TULIO PALAFOX APRN) EKG: EKG: EKG at 1700, read by myself and emergency room physician, sinus tachycardia, no STEMI, rate 103 [] (TULIO PALAFOX APRN) Radiology/Procedures: Radiology/Procedures: [] Impression: PROCEDURE: CT ABDOMEN PELVIS WO CONTRAST PQRS Compliance Statement: One or more of the following individualized dose reduction techniques were utilized for this examination: 1. Automated exposure control 2. Adjustment of the mA and/or kV according to patient size 3. Use of iterative reconstruction technique CT abdomen/pelvis without contrast 11/28/2019 3:49 PM INDICATION: Abdominal pain, fever COMPARISON: CT abdomen/pelvis 10/20/2019 TECHNIQUE: Multiple axial CT images of the abdomen and pelvis were obtained without intravenous contrast. Coronal and sagittal reformats are provided. FINDINGS: Interval resolution of small bilateral pleural effusions with compressive atelectasis. Evaluation of solid abdominal viscera is limited by lack of intravenous contrast. Heart size within normal limits. Small hiatal hernia. Diffuse esophageal wall thickening may be associated with esophagitis. Liver, spleen, bilateral adrenal glands and kidneys are normal in appearance. No hydronephrosis or renal calculi. Gallbladder surgically absent. Pancreas is not well evaluated without intravenous contrast and lack of intraperitoneal fat. Evaluation for intra-abdominal lymphadenopathy is limited by lack of intraperitoneal fat and intravenous contrast. There is mild gastric distention. Mesenteric edema is suspected although evaluation is limited. May be bowel wall thickening involving the transverse colon. Mild gaseous prominence of the large bowel. Bowel anastomotic changes are identified in the right midabdomen. Evaluation for extraluminal fluid collection is limited by lack of oral contrast. Hardware is noted within the proximal femora bilaterally. No new or suspicious osseous abnormality is identified. Urinary bladder is within normal limits given degree of distention. No suspicious pelvic mass. Surgical clips are identified along the pelvic sidewall bilaterally. Pigtail catheter is identified within the left ventral abdominal wall with minimal residual gas no significant fluid collection. IMPRESSION: 1. Interval resolution of bilateral pleural effusions and adjacent consolidative processes. 2. Similar degree of diffuse anasarca. Evaluation is significantly limited by lack of intravenous and oral contrast as well as the lack of intraperitoneal fat. 3. Mildly distended bowel loops without definite bowel obstruction. Evaluate extraluminal fluid collection is limited by lack of intravenous contrast and intraperitoneal fat. Consider repeat evaluation with oral contrast there is persistent concern. Apparent wall thickening involving the transverse colon could reflect colitis. 4. Left ventral abdominal wall abscess appears decompressed without residual fluid. Tiny amount of residual air is noted with pigtail catheter in similar position. (TULIO PALAFOX APRN) Course & Med Decision Making: Course & Med Decision Making Pertinent Labs and Imaging studies reviewed. (See chart for details) [Vital signs stable, patient remains afebrile in emergency room, pain controlled with IV Dilaudid, patient seen by Dr. Cisneros in the emergency room who accepts admission. Urine culture pending at time of admission, infectious versus c ontaminant.] (TULIO PALAFOX APRN) Dragon Disclaimer: Dragon Disclaimer: This electronic medical record was generated, in whole or in part, using a voice recognition dictation system. (TULIO PALAFOX APRN) Departure Departure Impression: Primary Impression: Intractable abdominal pain Additional Impression: Abdominal wall fistula Disposition: 09 ADMITTED INPATIENT Admitting Physician: Roderick Cisneros (TULIO PALAFOX APRN) Condition: STABLE Referrals: RODERICK CISNEROS MD (PCP) Justicifation of Admission Dx: Justifications for Admission: Justification of Admission Dx: Yes Comments: Intractable abdominal pain, abdominal wall fistulas (TULIO PALAFOX APRN) Attending Signature Attending Signature I have reviewed the PA/SALESPERSON AUTOMOBILES's note and plan of care. I was available for consultation as needed during the patient's visit in the emergency department. I agree with the clinical impression, plan, and disposition. (RODERICK JARAMILLO SHAWN J APRN Nov 28, 2019 16:03 RODERICK JARAMILLO DO Nov 28, 2019 18:48
[2019-11-28 16:07] LABS: BACTERIA,URINE MANY /HPF (0-FEW); SQUAMOUS EPITHELIAL CELL,UR MOD /LPF; WBC,URINE >40 /HPF (0-4)
[2019-11-28 16:08] LABS: RBC,URINE >40 /HPF (0-2)
--- NOTE | 2019-11-28 16:13 | RAD ---
PQRS Compliance Statement: One or more of the following individualized dose reduction techniques were utilized for this examination: 1. Automated exposure control 2. Adjustment of the mA and/or kV according to patient size 3. Use of iterative reconstruction technique CT abdomen/pelvis without contrast 11/28/2019 3:49 PM INDICATION: Abdominal pain, fever COMPARISON: CT abdomen/pelvis 10/20/2019 TECHNIQUE: Multiple axial CT images of the abdomen and pelvis were obtained without intravenous contrast. Coronal and sagittal reformats are provided. FINDINGS: Interval resolution of small bilateral pleural effusions with compressive atelectasis. Evaluation of solid abdominal viscera is limited by lack of intravenous contrast. Heart size within normal limits. Small hiatal hernia. Diffuse esophageal wall thickening may be associated with esophagitis. Liver, spleen, bilateral adrenal glands and kidneys are normal in appearance. No hydronephrosis or renal calculi. Gallbladder surgically absent. Pancreas is not well evaluated without intravenous contrast and lack of intraperitoneal fat. Evaluation for intra-abdominal lymphadenopathy is limited by lack of intraperitoneal fat and intravenous contrast. There is mild gastric distention. Mesenteric edema is suspected although evaluation is limited. May be bowel wall thickening involving the transverse colon. Mild gaseous prominence of the large bowel. Bowel anastomotic changes are identified in the right midabdomen. Evaluation for extraluminal fluid collection is limited by lack of oral contrast. Hardware is noted within the proximal femora bilaterally. No new or suspicious osseous abnormality is identified. Urinary bladder is within normal limits given degree of distention. No suspicious pelvic mass. Surgical clips are identified along the pelvic sidewall bilaterally. Pigtail catheter is identified within the left ventral abdominal wall with minimal residual gas no significant fluid collection. IMPRESSION: 1. Interval resolution of bilateral pleural effusions and adjacent consolidative processes. 2. Similar degree of diffuse anasarca. Evaluation is significantly limited by lack of intravenous and oral contrast as well as the lack of intraperitoneal fat. 3. Mildly distended bowel loops without definite bowel obstruction. Evaluate extraluminal fluid collection is limited by lack of intravenous contrast and intraperitoneal fat. Consider repeat evaluation with oral contrast there is persistent concern. Apparent wall thickening involving the transverse colon could reflect colitis. 4. Left ventral abdominal wall abscess appears decompressed without residual fluid. Tiny amount of residual air is noted with pigtail catheter in similar position. Electronically signed by: Zoë Martínez MD (11/28/2019 4:10 PM) [facility]
[2019-11-28] MEDS ORDERED: LORazepam 0.5 MG TABLET PO PRN (16:45)
[2019-11-28] MEDS ORDERED: ZOLPIDEM 5 MG TABLET. PO PRN (16:45)
[2019-11-28] MEDS ORDERED: ACETAMINOPHEN 325 MG TABLET. PO PRN (16:45)
[2019-11-28] MEDS ORDERED: diphenhydrAMINE HCL 25 MG CAPSULE PO PRN (16:45)
[2019-11-28] MEDS ORDERED: FLUCONAZOLE 200MG/100ML PREMIX 100 ML IV SCH (17:00)
--- NOTE | 2019-11-28 17:14 | PDOC ---
Provider Note Provider Note history and physical dictated # [id number] Justicifation of Admission Dx: Justifications for Admission: Justification of Admission Dx: Yes Comments: fever and abdominal pain BENITA LUTZ MD Nov 28, 2019 17:14
--- NOTE | 2019-11-28 18:05 | RAD ---
CHEST AP ONLY History: Reason: fever 23 / Spl. Instructions: / History: Comparison: October 25, 2019 Findings: No consolidation or pleural effusion. Normal heart size. No pneumothorax. Right IJ central line, unchanged. Postop changes right upper abdomen. Impression: 1. No acute cardiopulmonary process. Electronically signed by: Roberto Salazar DO (11/28/2019 6:01 PM) [facility]
[2019-11-28 18:18] VITALS: BP 108/86
[2019-11-28] MEDS: VANCOMYCIN 125 MG/2.5 ML ORAL SOLUTION. PO SCH ×2 (18:34→21:33)
[2019-11-28] MEDS: POTASSIUM CL 20MEQ D5-0.45NACL 1,000 ML IV SCH (18:36)
--- NOTE | 2019-11-28 19:44 | HP ---
ADMIT DATE: 11/28/2019 HISTORY OF PRESENT ILLNESS: The patient is a 64-year-old -[place] female with a history of an enterocutaneous fistula, maintained on home total parenteral nutrition, who was recently dismissed from [facility] on 11/04/2019, treated for an abdominal wall abscess, treated with a percutaneous drain and IV antibiotics and also had Staphylococcus coagulase-negative bacteremia, suspected due to infected PICC line, which was changed by guidewire. The patient received IV daptomycin and oral Flagyl. She received IV daptomycin for 3 days after dismissal and Flagyl 500 mg t.i.d. for 14 days after dismissal and is still maintained on home TPN. She felt fine until the last couple of days when she developed some diffuse abdominal pain and back pain and says she had a fever yesterday of 103 degrees, prompting admission to [facility]. She still has the same STACIE drain for an intraabdominal abscess and still has some drainage. She went to the [facility] Emergency Room today. In the Emergency Room, white count was actually normal at 6.6. She had a CAT scan of her abdomen and pelvis without IV contrast and it showed resolution of bilateral pleural effusions, anasarca and mildly distended bowel loops without any evidence of bowel obstruction. The left ventral abdominal wall abscess that was decompressed without any residual fluid. She did have some drainage in her pigtail catheter or STACIE drain that is still present. The patient is, therefore, admitted for further evaluation of abdominal pain and fever. ALLERGIES AND INTOLERANCES: IV CONTRAST, ADHESIVE TAPE, CODEINE, SILVER, AND IV VANCOMYCIN. SHE CAN TOLERATE ORAL VANCOMYCIN. MEDICATIONS: Prior to admission include Dilaudid 2 mg p.o. 4 times a day p.r.n. for severe pain, lidocaine topical ointment followed by zinc oxide topical ointment b.i.d. to the abdominal wall, lorazepam 0.5 mg p.o. every 6 hours p.r.n., Protonix 40 mg every day, sertraline 50 mg every day, Tylenol 650 mg every 6 hours p.r.n., Zofran 4 mg p.o. every 6 hours p.r.n., and Ambien 5 mg at bedtime p.r.n. PAST MEDICAL HISTORY: Significant for an enterocutaneous fistula and enterovesical fistula. She has had about 5 surgical repairs for the enterocutaneous fistula with mesh and they have all failed. In addition, she has anemia of chronic disease. She has a history of depression. She had a history of Clostridium difficile colitis within the last year. She had a deep vein thrombosis of the left arm due to a PICC line in 2010. She has had recurrent bacteremia and sepsis from infected PICC lines in the past, diverticulosis and gastritis. She had an appendectomy, cholecystectomy, tonsillectomy, hysterectomy. She has a history of recurrent sepsis, depression, diverticulitis, erosive esophagitis, and I believe she has also had Judi esophagitis. She also has a history of hypertension. SOCIAL HISTORY: She does not drink alcohol. She does not drink alcohol nor does she smoke cigarettes. She is maintained on home TPN. FAMILY HISTORY: Noncontributory. REVIEW OF SYSTEMS: GENERAL: She admits to fever up to 103 degrees yesterday. CARDIOVASCULAR: No chest pain. PULMONARY: Shortness of breath. GASTROINTESTINAL: She admits to some loose stools and also has diffuse abdominal pain. ENDOCRINE: No diabetes mellitus. SKIN: No rashes. She does have chronic excoriation of the abdominal wall due to the contents of the enterocutaneous fistula. The rest of review of systems is negative except as stated in history of present illness. PHYSICAL EXAMINATION: VITAL SIGNS: Temperature is 99 degrees, apical pulse is 111, respiratory rate 20, blood pressure is 147/88, oxygen saturation 95% on room air. HEENT: Eyes: Gaze is conjugate. Mouth: Tongue is midline. She does have a white coating on it. NECK: No cervical lymphadenopathy or thyroid enlargement. HEART: Reveals an S1, S2. There is no S3 or murmur. LUNGS: Clear. ABDOMEN: Not distended. She has got some chronic excoriation of the abdominal wall due to the contents of the enterocutaneous fistula. She does have an enterocutaneous fistula. ABDOMEN: Soft, not distended. She has a STACIE drain with some dark green drainage in it. EXTREMITIES: Lower extremities without edema. SKIN: No rashes. NEUROLOGIC: Coherent. No focal weakness in arms or legs. LABORATORY DATA: White count 7.6, hemoglobin 13.9, platelet count 307,000, 78 polys and 11 lymphocytes. Sodium 140, potassium 4.6, chloride 109, total CO2 of 22, BUN 28, creatinine 0.6, blood sugar 107. The liver function tests were normal. Troponin levels less than 0.017. Lactic acid was 1.2. Albumin 2.2, lipase was normal at 72. Urinalysis showed greater than 40 white cells, greater than 40 red blood cells, but she does have an enterovesical fistula, so it always will be abnormal. She had a CAT scan of the abdomen and pelvis as stated above. EKG was ordered, but is not back yet. I do not see a chest x-ray done. ASSESSMENT: 1. Fever. I was concerned about sepsis in this patient, especially PICC line related sepsis. 2. Abdominal pain. 3. History of chronic abdominal pain due to abdominal adhesions. 4. Severe protein-calorie malnutrition. 5. History of Clostridium difficile colitis within the last year. 6. Enterovesical fistula. 7. Enterocutaneous fistula. PLAN: At this time is to consult Dr. Garcia Suggs from Infectious Disease, Dr. Ovalle for GI. She does have odynophagia and we was started on fluconazole, put her on oral vancomycin to help prevent Clostridium difficile colitis, while she is receiving IV vancomycin and IV Zosyn. We will get a chest x-ray. Blood cultures x 2 have been ordered. We will also order Dilaudid 1 mg IV every 4 hours p.r.n. for abdominal pain. Consult Dr. Ovalle also for the abdominal pain as well as the odynophagia. Fluconazole has been ordered and Protonix will be continued. We will continue with her other home medications. IV fluids have been ordered. I spoke with the pharmacist who is making the TPN, which will not be available tomorrow. Once the TPN is available it will be at 80 mL an hour and discontinue the maintenance IV fluids. Check a CBC, BMP and magnesium tomorrow. We will also check a phosphorus level. We will order SCDs for deep vein thrombosis prophylaxis also. She will be a full admit. BENITA LUTZ MD DR: NABILA/jd JOB#: [id number] / [id number]
[2019-11-28] MEDS: ONDANSETRON PF 4 MG/2 ML VIAL. IVP PRN (20:18)
[2019-11-28] MEDS ORDERED: MAG HYDROX/ALUMINUM HYD/SIMETH 30 ML ORAL.SUSP PO PRN (20:45)
[2019-11-28] MEDS: ZINC OXIDE 20% TOPICAL OINTMENT 28GM TUBE. TP SCH (21:32)
[2019-11-28] MEDS: LIDOCAINE 2% TOPICAL JELLY 30GM TUBE. TP SCH (21:33)
[2019-11-28] MEDS: HYDROmorphone 2 MG/ML VIAL IV PRN (22:01)
[2019-11-28 23:00] VITALS: BP 126/68
[2019-11-29] MEDS: PIPERACILLIN/TAZOBACTAM 3.375 GM in IV NORMAL SALINE 50ML 50 ML IV SCH ×5 (00:07→23:28)
[2019-11-29 03:00] VITALS: BP 116/71
--- NOTE | 2019-11-29 03:19 | EKG ---
[facility] [address] [place] [address] Test Date: 2019-11-28 Test Time: 16:57:35 Pat Name: HERMAN MONCADA Department: Room: 3 Gender: F Group Leader [employer]: : 1955 Requested By: TULIO PALAFOX Order Number: [id number] Reading MD: Kun Sewell MD Measurements Intervals [place] Rate: 103 P: -15 HI: 148 QRS: -5 QRSD: 68 T: -15 QT: 322 QTc: 424 Interpretive Statements SINUS TACHYCARDIA CONSISTENT WITH SEPTAL INFARCT PROBABLY OLD Electronically Signed On 12-06-2019 8:16:55 CDT by Kun Sewell MD
[2019-11-29] MEDS: HYDROmorphone 2 MG/ML VIAL IV PRN ×5 (04:12→23:42)
[2019-11-29 06:40] LABS: BASO # 0.1 x10^3/uL (0.0-0.2); BASO % 1 % (0-3); EOS # 0.3 x10^3/uL (0.0-0.7); EOS % 4 % (0-3); HEMATOCRIT 29.6 % (36.0-47.0); LYMPH # 0.8 x10^3/uL (1.0-4.8); LYMPH % 10 % (24-48); MEAN CORPUSCULAR HEMOGLOBIN 30 pg (25-35); MEAN CORPUSCULAR HGB CONC 34 g/dL (31-37); MEAN CORPUSCULAR VOLUME 91 fL (79-100); MONO # 0.7 x10^3/uL (0.0-1.1); MONO % 8 % (0-9); NEUT # 6.7 x10^3/uL (1.8-7.7); NEUT % 77 % (31-73); PLATELET COUNT 332 x10^3/uL (140-400); RED BLOOD COUNT 3.28 x10^6/uL (3.50-5.40); RED CELL DISTRIBUTION WIDTH 19.2 % (11.5-14.5); WHITE BLOOD COUNT 8.7 x10^3/uL (4.0-11.0)
[2019-11-29 06:53] LABS: CREATININE 0.7 mg/dL (0.6-1.0); GFR 101.9; MAGNESIUM 1.6 mg/dL (1.8-2.4); POTASSIUM 4.7 mmol/L (3.5-5.1)
[2019-11-29] MEDS ORDERED: PANTOPRAZOLE 40 MG TABLET.DR. PO SCH (07:30)
[2019-11-29] MEDS: POTASSIUM CL 20MEQ D5-0.45NACL 1,000 ML IV SCH ×2 (07:35→17:45)
[2019-11-29 07:54] VITALS: BP 113/69
[2019-11-29] MEDS: VANCOMYCIN 125 MG/2.5 ML ORAL SOLUTION. PO SCH ×4 (09:15→20:01)
[2019-11-29] MEDS: LIDOCAINE 2% TOPICAL JELLY 30GM TUBE. TP SCH ×2 (09:16→20:02)
[2019-11-29] MEDS: SERTRALINE 50 MG TABLET. PO SCH (09:16)
[2019-11-29] MEDS: ZINC OXIDE 20% TOPICAL OINTMENT 28GM TUBE. TP SCH ×2 (09:16→20:02)
--- NOTE | 2019-11-29 09:47 | PDOC ---
Infectious Disease Note Vital Sign Vital Signs Vital Signs Date Time Temp Pulse Resp B/P (MAP) Pulse Ox O2 Delivery O2 Flow Rate FiO2 11/29/19 07:54 98.6 95 18 113/69 (84) 98 Room Air 98.6 Labs Lab Laboratory Tests Test 11/28/19 15:25 11/29/19 06:30 White Blood Count 7.6 x10^3/uL (4.0-11.0) 8.7 x10^3/uL (4.0-11.0) Red Blood Count 4.56 x10^6/uL (3.50-5.40) 3.28 x10^6/uL (3.50-5.40) Hemoglobin 13.9 g/dL (12.0-15.5) 10.0 g/dL (12.0-15.5) Hematocrit 41.3 % (36.0-47.0) 29.6 % (36.0-47.0) Mean Corpuscular Volume 91 fL (79-100) 91 fL (79-100) Mean Corpuscular Hemoglobin 30 pg (25-35) 30 pg (25-35) Mean Corpuscular Hemoglobin Concent 34 g/dL (31-37) 34 g/dL (31-37) Red Cell Distribution Width 18.7 % (11.5-14.5) 19.2 % (11.5-14.5) Platelet Count 307 x10^3/uL (140-400) 332 x10^3/uL (140-400) Neutrophils (%) (Auto) 78 % (31-73) 77 % (31-73) Lymphocytes (%) (Auto) 11 % (24-48) 10 % (24-48) Monocytes (%) (Auto) 7 % (0-9) 8 % (0-9) Eosinophils (%) (Auto) 3 % (0-3) 4 % (0-3) Basophils (%) (Auto) 1 % (0-3) 1 % (0-3) Neutrophils # (Auto) 5.9 x10^3/uL (1.8-7.7) 6.7 x10^3/uL (1.8-7.7) Lymphocytes # (Auto) 0.8 x10^3/uL (1.0-4.8) 0.8 x10^3/uL (1.0-4.8) Monocytes # (Auto) 0.6 x10^3/uL (0.0-1.1) 0.7 x10^3/uL (0.0-1.1) Eosinophils # (Auto) 0.3 x10^3/uL (0.0-0.7) 0.3 x10^3/uL (0.0-0.7) Basophils # (Auto) 0.1 x10^3/uL (0.0-0.2) 0.1 x10^3/uL (0.0-0.2) Urine Collection Type U cath Urine Color Yellow Urine Clarity Turbid Urine pH 5.5 (<5.0-8.0) Urine Specific [place] 1.020 (1.000-1.030) Urine Protein 30 mg/dL (NEG-TRACE) Urine Glucose (UA) Negative mg/dL (NEG) Urine Ketones (Stick) Negative mg/dL (NEG) Urine Blood Large (NEG) Urine Nitrite Positive (NEG) Urine Bilirubin Negative (NEG) Urine Urobilinogen Dipstick 0.2 mg/dL (0.2 mg/dL) Urine Leukocyte Esterase Large (NEG) Urine RBC >40 /HPF (0-2) Urine WBC >40 /HPF (0-4) Urine Squamous Epithelial Cells Mod /LPF Urine Bacteria Many /HPF (0-FEW) Urine Mucus Mod /LPF Sodium Level 140 mmol/L (136-145) 140 mmol/L (136-145) Potassium Level 4.6 mmol/L (3.5-5.1) 4.7 mmol/L (3.5-5.1) Chloride Level 109 mmol/L (98-107) 110 mmol/L (98-107) Carbon Dioxide Level 22 mmol/L (21-32) 23 mmol/L (21-32) Anion Gap 9 (6-14) 7 (6-14) Blood Urea Nitrogen 28 mg/dL (7-20) 15 mg/dL (7-20) Creatinine 0.6 mg/dL (0.6-1.0) 0.7 mg/dL (0.6-1.0) Estimated GFR (Cockcroft-Gault) 121.8 101.9 BUN/Creatinine Ratio 47 (6-20) Glucose Level 107 mg/dL (70-99) 95 mg/dL (70-99) Lactic Acid Level 1.2 mmol/L (0.4-2.0) Calcium Level 8.7 mg/dL (8.5-10.1) 8.0 mg/dL (8.5-10.1) Phosphorus Level 3.8 mg/dL (2.6-4.7) Total Bilirubin 0.4 mg/dL (0.2-1.0) Aspartate Amino Transf (AST/SGOT) 14 U/L (15-37) Alanine Aminotransferase (ALT/SGPT) 13 U/L (14-59) Alkaline Phosphatase 148 U/L (46-116) Troponin I Quantitative < 0.017 ng/mL (0.000-0.055) Total Protein 8.2 g/dL (6.4-8.2) Albumin 2.2 g/dL (3.4-5.0) Albumin/Globulin Ratio 0.4 (1.0-1.7) Lipase 72 U/L (73-393) Magnesium Level 1.6 mg/dL (1.8-2.4) Objective Assessment Fever Abd Pain Drain leakage Vanc allerdy Short gut H/o C-diff H/o Abdominal wall abscess Enterocutaneous fistula. Enterovesicular fistula. Malnutrition. H/o Esophagitis. Anemia Chronic TPN H/o Coagulase-negative staph on blood culture,msse status post line change, repeat blood cultures negative Plan Plan of Care Cont Zosyn/Zyvox/Diflucan but increase to 400 mg/po Vanc Consult IR for drain eval with leakage F/u labs and cults - Urine ? Thank you # [id number] ABBY MOTT MD Nov 29, 2019 09:47
--- NOTE | 2019-11-29 10:29 | PDOC ---
PROGRESS NOTES Subjective Subjective has an area of induration and tenderness LLQ abdomen next to drainage catheter. lab reviewed. magnesium low. afebrile. wbc okay. blood cultures pending. she is weak Objective Objective Vital Signs Date Time Temp Pulse Resp B/P (MAP) Pulse Ox O2 Delivery O2 Flow Rate FiO2 11/29/19 07:54 98.6 95 18 113/69 (84) 98 Room Air 98.6 Intake and Output 11/29/19 07:00 Intake Total 1290 ml Output Total 41 ml Balance 1249 ml Intake Oral 240 ml IV Total 1050 ml Output Urine Total 1 ml Drainage Total 40 ml # Bowel Movements 1 Physical Exam Abdomen: Soft, Other (STACIE drain LLQ. has induratin and tenderness next to STACIE drain) Heart: Regular rate, Normal S1, Normal S2 Extremities: No edema General: Alert HEENT: Atraumatic Lungs: Clear to auscultation Neuro: Normal speech Psych/Mental Status: Mental status NL Skin: No rashes Assessment Assessment Problems1. Fever 2. Abdominal pain. 3. History of chronic abdominal pain due to abdominal adhesions. 4. Severe protein-calorie malnutrition. 5. History of Clostridium difficile colitis within the last year. 6. Enterovesical fistula. 7. Enterocutaneous fistula. indurated area LLQ abominal wall. concern about an abscess critical illness myopathy hypomagnesemia Medical Problems: (1) Abdominal wall fistula Status: Acute (2) Intractable abdominal pain Status: Acute Plan Plan of Care continue iv zyvox adn zosyn and flucnoazole and oral vancomycin blood cultures pending consult dr. Tomlinson for abdominal wall firm area iv magnesium TPN later today when available PT and OT Comment Review of Relevant I have reviewed the following items lucila (where applicable) has been applied. Labs Laboratory Tests Test 11/28/19 15:25 11/29/19 06:30 White Blood Count 7.6 x10^3/uL (4.0-11.0) 8.7 x10^3/uL (4.0-11.0) Red Blood Count 4.56 x10^6/uL (3.50-5.40) 3.28 x10^6/uL (3.50-5.40) Hemoglobin 13.9 g/dL (12.0-15.5) 10.0 g/dL (12.0-15.5) Hematocrit 41.3 % (36.0-47.0) 29.6 % (36.0-47.0) Mean Corpuscular Volume 91 fL (79-100) 91 fL (79-100) Mean Corpuscular Hemoglobin 30 pg (25-35) 30 pg (25-35) Mean Corpuscular Hemoglobin Concent 34 g/dL (31-37) 34 g/dL (31-37) Red Cell Distribution Width 18.7 % (11.5-14.5) 19.2 % (11.5-14.5) Platelet Count 307 x10^3/uL (140-400) 332 x10^3/uL (140-400) Neutrophils (%) (Auto) 78 % (31-73) 77 % (31-73) Lymphocytes (%) (Auto) 11 % (24-48) 10 % (24-48) Monocytes (%) (Auto) 7 % (0-9) 8 % (0-9) Eosinophils (%) (Auto) 3 % (0-3) 4 % (0-3) Basophils (%) (Auto) 1 % (0-3) 1 % (0-3) Neutrophils # (Auto) 5.9 x10^3/uL (1.8-7.7) 6.7 x10^3/uL (1.8-7.7) Lymphocytes # (Auto) 0.8 x10^3/uL (1.0-4.8) 0.8 x10^3/uL (1.0-4.8) Monocytes # (Auto) 0.6 x10^3/uL (0.0-1.1) 0.7 x10^3/uL (0.0-1.1) Eosinophils # (Auto) 0.3 x10^3/uL (0.0-0.7) 0.3 x10^3/uL (0.0-0.7) Basophils # (Auto) 0.1 x10^3/uL (0.0-0.2) 0.1 x10^3/uL (0.0-0.2) Urine Collection Type U cath Urine Color Yellow Urine Clarity Turbid Urine pH 5.5 (<5.0-8.0) Urine Specific [place] 1.020 (1.000-1.030) Urine Protein 30 mg/dL (NEG-TRACE) Urine Glucose (UA) Negative mg/dL (NEG) Urine Ketones (Stick) Negative mg/dL (NEG) Urine Blood Large (NEG) Urine Nitrite Positive (NEG) Urine Bilirubin Negative (NEG) Urine Urobilinogen Dipstick 0.2 mg/dL (0.2 mg/dL) Urine Leukocyte Esterase Large (NEG) Urine RBC >40 /HPF (0-2) Urine WBC >40 /HPF (0-4) Urine Squamous Epithelial Cells Mod /LPF Urine Bacteria Many /HPF (0-FEW) Urine Mucus Mod /LPF Sodium Level 140 mmol/L (136-145) 140 mmol/L (136-145) Potassium Level 4.6 mmol/L (3.5-5.1) 4.7 mmol/L (3.5-5.1) Chloride Level 109 mmol/L (98-107) 110 mmol/L (98-107) Carbon Dioxide Level 22 mmol/L (21-32) 23 mmol/L (21-32) Anion Gap 9 (6-14) 7 (6-14) Blood Urea Nitrogen 28 mg/dL (7-20) 15 mg/dL (7-20) Creatinine 0.6 mg/dL (0.6-1.0) 0.7 mg/dL (0.6-1.0) Estimated GFR (Cockcroft-Gault) 121.8 101.9 BUN/Creatinine Ratio 47 (6-20) Glucose Level 107 mg/dL (70-99) 95 mg/dL (70-99) Lactic Acid Level 1.2 mmol/L (0.4-2.0) Calcium Level 8.7 mg/dL (8.5-10.1) 8.0 mg/dL (8.5-10.1) Phosphorus Level 3.8 mg/dL (2.6-4.7) Total Bilirubin 0.4 mg/dL (0.2-1.0) Aspartate Amino Transf (AST/SGOT) 14 U/L (15-37) Alanine Aminotransferase (ALT/SGPT) 13 U/L (14-59) Alkaline Phosphatase 148 U/L (46-116) Troponin I Quantitative < 0.017 ng/mL (0.000-0.055) Total Protein 8.2 g/dL (6.4-8.2) Albumin 2.2 g/dL (3.4-5.0) Albumin/Globulin Ratio 0.4 (1.0-1.7) Lipase 72 U/L (73-393) Magnesium Level 1.6 mg/dL (1.8-2.4) Laboratory Tests Test 11/28/19 15:25 11/29/19 06:30 White Blood Count 7.6 x10^3/uL (4.0-11.0) 8.7 x10^3/uL (4.0-11.0) Red Blood Count 4.56 x10^6/uL (3.50-5.40) 3.28 x10^6/uL (3.50-5.40) Hemoglobin 13.9 g/dL (12.0-15.5) 10.0 g/dL (12.0-15.5) Hematocrit 41.3 % (36.0-47.0) 29.6 % (36.0-47.0) Mean Corpuscular Volume 91 fL (79-100) 91 fL (79-100) Mean Corpuscular Hemoglobin 30 pg (25-35) 30 pg (25-35) Mean Corpuscular Hemoglobin Concent 34 g/dL (31-37) 34 g/dL (31-37) Red Cell Distribution Width 18.7 % (11.5-14.5) 19.2 % (11.5-14.5) Platelet Count 307 x10^3/uL (140-400) 332 x10^3/uL (140-400) Neutrophils (%) (Auto) 78 % (31-73) 77 % (31-73) Lymphocytes (%) (Auto) 11 % (24-48) 10 % (24-48) Monocytes (%) (Auto) 7 % (0-9) 8 % (0-9) Eosinophils (%) (Auto) 3 % (0-3) 4 % (0-3) Basophils (%) (Auto) 1 % (0-3) 1 % (0-3) Neutrophils # (Auto) 5.9 x10^3/uL (1.8-7.7) 6.7 x10^3/uL (1.8-7.7) Lymphocytes # (Auto) 0.8 x10^3/uL (1.0-4.8) 0.8 x10^3/uL (1.0-4.8) Monocytes # (Auto) 0.6 x10^3/uL (0.0-1.1) 0.7 x10^3/uL (0.0-1.1) Eosinophils # (Auto) 0.3 x10^3/uL (0.0-0.7) 0.3 x10^3/uL (0.0-0.7) Basophils # (Auto) 0.1 x10^3/uL (0.0-0.2) 0.1 x10^3/uL (0.0-0.2) Urine Collection Type U cath Urine Color Yellow Urine Clarity Turbid Urine pH 5.5 (<5.0-8.0) Urine Specific [place] 1.020 (1.000-1.030) Urine Protein 30 mg/dL (NEG-TRACE) Urine Glucose (UA) Negative mg/dL (NEG) Urine Ketones (Stick) Negative mg/dL (NEG) Urine Blood Large (NEG) Urine Nitrite Positive (NEG) Urine Bilirubin Negative (NEG) Urine Urobilinogen Dipstick 0.2 mg/dL (0.2 mg/dL) Urine Leukocyte Esterase Large (NEG) Urine RBC >40 /HPF (0-2) Urine WBC >40 /HPF (0-4) Urine Squamous Epithelial Cells Mod /LPF Urine Bacteria Many /HPF (0-FEW) Urine Mucus Mod /LPF Sodium Level 140 mmol/L (136-145) 140 mmol/L (136-145) Potassium Level 4.6 mmol/L (3.5-5.1) 4.7 mmol/L (3.5-5.1) Chloride Level 109 mmol/L (98-107) 110 mmol/L (98-107) Carbon Dioxide Level 22 mmol/L (21-32) 23 mmol/L (21-32) Anion Gap 9 (6-14) 7 (6-14) Blood Urea Nitrogen 28 mg/dL (7-20) 15 mg/dL (7-20) Creatinine 0.6 mg/dL (0.6-1.0) 0.7 mg/dL (0.6-1.0) Estimated GFR (Cockcroft-Gault) 121.8 101.9 BUN/Creatinine Ratio 47 (6-20) Glucose Level 107 mg/dL (70-99) 95 mg/dL (70-99) Lactic Acid Level 1.2 mmol/L (0.4-2.0) Calcium Level 8.7 mg/dL (8.5-10.1) 8.0 mg/dL (8.5-10.1) Phosphorus Level 3.8 mg/dL (2.6-4.7) Total Bilirubin 0.4 mg/dL (0.2-1.0) Aspartate Amino Transf (AST/SGOT) 14 U/L (15-37) Alanine Aminotransferase (ALT/SGPT) 13 U/L (14-59) Alkaline Phosphatase 148 U/L (46-116) Troponin I Quantitative < 0.017 ng/mL (0.000-0.055) Total Protein 8.2 g/dL (6.4-8.2) Albumin 2.2 g/dL (3.4-5.0) Albumin/Globulin Ratio 0.4 (1.0-1.7) Lipase 72 U/L (73-393) Magnesium Level 1.6 mg/dL (1.8-2.4) Medications Current Medications Hydromorphone HCl (Dilaudid) 1 mg PRN Q15MIN PRN IV/SQ PAIN GREATER THAN 3/10 Last administered on 11/28/19at 17:49; Start 11/28/19 at 15:15; Stop 11/29/19 at 15:14 Piperacillin Sod/ Tazobactam Sod 3.375 gm/Sodium Chloride 50 ml @ 100 mls/hr 1X ONCE IV Last administered on 11/28/19at 15:30; Start 11/28/19 at 15:30; Stop 11/28/19 at 15:59; Status DC Sodium Chloride 1,000 ml @ 1,000 mls/hr 1X ONCE IV Last administered on 11/28/19at 15:38; Start 11/28/19 at 15:15; Stop 11/28/19 at 16:14; Status DC Info (Tpn Per Pharmacy) 1 each PRN DAILY PRN MC SEE COMMENTS; Start 11/29/19 at 22:00 Linezolid/Dextrose 300 ml @ 300 mls/hr Q12HR IV Last administered on 11/29/19at 09:15; Start 11/28/19 at 18:00 Piperacillin Sod/ Tazobactam Sod 3.375 gm/Sodium Chloride 50 ml @ 100 mls/hr Q6HRS IV Last administered on 11/29/19at 06:09; Start 11/29/19 at 00:00 Potassium Chloride/Dextrose/ Sod Cl 1,000 ml @ 80 mls/hr [id number] IV Last administered on 11/29/19at 07:35; Start 11/28/19 at 16:45; Stop 11/29/19 at 21:59 Hydromorphone HCl (Dilaudid) 1 mg Q4HRS PRN IV SEVERE PAIN 7-10; Start 11/28/19 at 16:45 Zolpidem Tartrate (Ambien) 5 mg PRN QHS PRN PO INSOMNIA; Start 11/28/19 at 16:45 Fluconazole/ Sodium Chloride 100 ml @ 100 mls/hr Q24H IV Last administered on 11/28/19at 18:17; Start 11/28/19 at 17:00; Stop 11/29/19 at 09:37; Status DC Lidocaine HCl (Xylocaine 2% Topical 30gm Tube) 1 sang BID TP Last administered on 11/29/19at 09:16; Start 11/28/19 at 21:00 Zinc Oxide (Zinc Oxide 20% Topical) 1 sang BID TP Last administered on 11/29/19at 09:16; Start 11/28/19 at 21:00 Vancomycin HCl (Vancomycin Oral Solution) 125 mg [id number] PO Last administered on 11/29/19at 09:15; Start 11/28/19 at 17:00 Acetaminophen (Tylenol) 650 mg Q6HRS PRN PO MILD PAIN / TEMP > 100.3'F; Start 11/28/19 at 16:45 Pantoprazole Sodium (Protonix) 40 mg DAILYAC PO Last administered on 11/29/19at 06:09; Start 11/29/19 at 07:30 Sertraline HCl (Zoloft) 50 mg DAILY PO Last administered on 11/29/19at 09:16; Start 11/29/19 at 09:00 Lorazepam (Ativan) 0.5 mg Q6HRS PRN PO ANXIETY / AGITATION; Start 11/28/19 at 16:45 Ondansetron HCl (Zofran) 4 mg Q6HRS PRN IVP NAUSEA/VOMITING Last administered on 11/28/19at 20:18; Start 11/28/19 at 16:45 Diphenhydramine HCl (Benadryl) 25 mg Q6HRS PRN PO ITCHING; Start 11/28/19 at 16:45 Al Hydroxide/Mg Hydroxide (Mylanta Plus Xs) 30 ml PRN Q2HR PRN PO HEARTBURN / GAS Last administered on 11/28/19at 21:31; Start 11/28/19 at 20:45 Hydromorphone HCl (Dilaudid) 2 mg PRN Q4HRS PRN IV MODERATE TO SEVERE PAIN Last administered on 11/29/19at 04:12; Start 11/28/19 at 20:45 Fluconazole/ Sodium Chloride 200 ml @ 100 mls/hr Q24H IV ; Start 11/29/19 at 17:00 Active Scripts Active Daptomycin 350 Mg Vial 300 Mg IV DAILY 3 Days Metronidazole 500 Mg Tablet 1 Tab PO Q8HRS 14 Days Dilaudid (Hydromorphone Hcl) 2 Mg Tablet 1 Tab PO Q6HRS PRN MDD 4 Tablet(s) Pantoprazole Sodium (Pantoprazole Sodium) 40 Mg Tablet.dr 40 Mg PO DAILYAC Tylenol (Acetaminophen) 325 Mg Tablet 650 Mg PO PRN Q6HRS PRN [Pantoprazole] 40 MG Tablet.dr 40 Mg PO DAILYAC 30 Days Zinc Oxide 56.7 Gm Oint...g. 1 Sang TP BID Ambien (Zolpidem Tartrate) 5 Mg Tablet 5 Mg PO PRN QHS PRN 30 Days [Tpn Per Pharmacy] 1 EACH Each 1 Each PRN DAILY PRN TPN at 85cc/hour Sertraline Hcl 50 Mg Tablet 50 Mg PO DAILY 30 Days Lidocaine 35.44 Gm Oint...g. 1 Sang TP BID Reported Ondansetron Hcl 4 Mg Tablet 4 Mg PO PRN Q6HRS PRN Lorazepam 0.5 Mg Tablet 0.5 Mg PO Q6HRS PRN Vitals/I & O Vital Sign - Last 24 Hours 11/28/19 11/28/19 11/28/19 11/28/19 14:40 15:09 15:38 15:41 Temp 99.0 99.0 Pulse 111 110 110 Resp 22 20 B/P (MAP) 147/88 (107) 147/88 (107) 128/70 (89) Pulse Ox 98 95 100 99 O2 Delivery Room Air Room Air Room Air Room Air 11/28/19 11/28/19 11/28/19 11/28/19 16:09 16:39 16:51 17:49 Pulse 104 103 Resp 20 18 B/P (MAP) 123/67 (85) 120/67 (84) Pulse Ox 99 95 95 95 O2 Delivery Room Air Room Air Room Air Room Air 11/28/19 11/28/19 11/28/19 11/28/19 18:18 20:00 22:01 22:31 Temp 98.4 98.4 Pulse 98 Resp 16 16 16 B/P (MAP) 108/86 (93) Pulse Ox 95 95 100 O2 Delivery Room Air Room Air Room Air Room Air 11/28/19 11/29/19 11/29/19 11/29/19 23:00 03:00 04:12 04:42 Temp 98.0 98.0 98.0 98.0 Pulse 100 89 Resp 18 18 20 18 B/P (MAP) 126/68 (87) 116/71 (86) Pulse Ox 100 98 100 100 O2 Delivery Room Air Room Air Room Air Room Air 11/29/19 07:54 Temp 98.6 98.6 Pulse 95 Resp 18 B/P (MAP) 113/69 (84) Pulse Ox 98 O2 Delivery Room Air Intake and Output 11/28/19 11/28/19 11/29/19 15:00 23:00 07:00 Intake Total 1050 ml 240 ml Output Total 1 ml 40 ml Balance 1049 ml 200 ml BENITA LUTZ MD Nov 29, 2019 10:29
[2019-11-29] MEDS ORDERED: MAGNESIUM SULFATE 2GM 50 ML IV ONE (10:30)
--- NOTE | 2019-11-29 10:42 | CONS ---
DATE OF CONSULTATION: 11/29/2019 PATIENT'S ROOM: 663. REQUESTING PHYSICIAN: Dr. Cisneros. REASON FOR CONSULTATION: Fever, abdominal pain. HISTORY OF PRESENT ILLNESS: The patient is a pleasant 64-year-old female who has history of recent abdominal abscess, chronic TPN, cachexia and coag-negative Staph line infections recently admitted to [facility] with abdominal abscess, had a drain placed and was discharged on 11/04/2019. She had been doing fairly well except this past weekend, she began to develop fever. She states she got up to over 101, although according to notes it was 103 yesterday, she had increased abdominal pain, some nausea, vomiting and she presented to [facility] Emergency Room. White blood cell count was 6.6. CT scan of the abdomen and pelvis without contrast showed resolution of bilateral pleural effusions, anasarca, mildly distended bowel loops without any evidence of bowel obstruction, left ventral abdominal wall abscess that was decompressed without any residual fluid. She did have some drainage in her pigtail catheter. STACIE was still present and some leakage around it. She has been admitted and placed on IV fluconazole, Zyvox, Zosyn and oral vancomycin given her history of C. diff and now she is continued on TPN. PAST MEDICAL HISTORY: Please see dictation done on 10/14/2019 and also please refer to the last progress note on 11/04/2019. PAST SURGICAL HISTORY: Please see dictation done on 10/14/2019 and also please refer to the last progress note on 11/04/2019. SOCIAL HISTORY: Please see dictation done on 10/14/2019 and also please refer to the last progress note on 11/04/2019. ALLERGIES: Please see dictation done on 10/14/2019 and also please refer to the last progress note on 11/04/2019. FAMILY HISTORY: Noncontributory. CURRENT MEDICATIONS: Include oral vancomycin, Zyvox, Zosyn, fluconazole, Dilaudid, potassium, Protonix, Zoloft. Other meds are available and reviewed in the chart. PHYSICAL EXAMINATION: VITAL SIGNS: Temperature was 99 on arrival, currently 98.6, pulse 95, respirations 18, blood pressure 113/69, satting 98% on room air. CONSTITUTIONAL: She is alert. She looks comfortable. She is cachectic. She is in no acute distress. HEENT: Pupils equal and reactive. She has normal conjunctivae. Oral cavity, pharynx is without thrush. NECK: Supple, no JVD. LUNGS: Decreased in the bases. HEART: S1, S2. ABDOMEN: Not distended. She has a chronic excoriations, but healing areas as well. She has a drain in the left lower quadrant with some mild purulent material, appears to be leaking around. STACIE has some serous type fluid currently. EXTREMITIES: Without clubbing or cyanosis. She has trace edema. SKIN: Warm to touch without signs of rash. NEUROLOGIC: She is nonfocal, moves all extremities. Her right chest IV line is without signs of any complications. LABORATORY DATA: White count 8.7, hemoglobin 10, platelets are 332. Segs were 77, creatinine 0.7, glucose of 95. She had normal liver function study tests on arrival. Urinalysis had moderate squamous cells present so it is difficult to say if this could be infectious or not. Chest x-ray without acute pulmonary abnormality. CT of the abdomen and pelvis also had some mild wall thickening involving the transverse colon, which could reflect some colitis. IMPRESSION: 1. Fever. 2. Abdominal pain. 3. Drain leakage. 4. Vancomycin allergy IV. 5. Short gut. 6. History of Clostridium difficile. 7. Abdominal wall abscess. 8. Enterocutaneous fistula. 9. Enterovesicular fistula. 10. Malnutrition. 11. History of esophagitis. 12. Anemia. 13. Chronic TPN. 14. History of coag negative Staph, blood culture was MSSE with a line change. Repeat cultures were negative. RECOMMENDATIONS: We will continue the Zosyn, Zyvox, and oral vancomycin. We will increase the Diflucan to 400 mg. Consult Interventional Radiology for drain evaluation with leakage. We will follow up labs and cultures including the urine, which is some questionable. Thank you for the patient's care. If you have any questions, please do not hesitate to contact me. ABBY MOTT MD DR: DUNCAN/jd JOB#: [id number] / [id number]
--- NOTE | 2019-11-29 10:52 | PDOC2 ---
GI CONSULT Reason For Consult: Odynophagia, abd pain HPI: HPI: Pleasant 64 y/o female who we have seen many times. Recently admitted for abdominal wall abscess s/p drain placement w/ IR, also staph bacteremia and PICC exchange. To ER yesterday w/ fever and abd pain. Tells me less drainage in drain but "swelling" and drainage from site that smells bad. Has lost weight. Not eating as much though not clear why - maybe abdominal pain after eating. Admits odynophagia. Also thinks has diarrhea - "sometimes it comes out and I don't know til I smell it." Primary started vanco and fluconazole. H/o complicated diverticular disease w/ enterocutaneous fistulas w/ numerous (unsuccessful) surgeries in the past (at [facility], , [facility]). Intermittent n/v, chronic abd pain, and fluctuating fistulae drainage (in past suspected related to intermittent obstruction). On TPN, Dilaudid PRN, and PPI at home. EGD pathology (Dr. Arellano) 09/2017 - ana esophagitis (negative for Wallace's). EGD (Dr. Ovalle) 10/2018: suspected pill-induced ulcers in proximal esophagus, esophageal candidiasis (confirmed w/ biopsy, treated w/ Diflucan), mild reflux, normal stomach, normal duodenum. Records indicate colonoscopy in 2011 w/ diverticulosis and previous resection. S/p cholecystectomy (does not recall stones). H/o elevated LFTs, MRCP showed "kink" in CBD. PMH: PMH: HTN, cervical cancer (w/ radium implants), UE DVT, anxiety, sepsis, UTI, esophagitis and gastritis, ?PUD, SBO, diverticulosis, CKD, hypothyroidism, fistulas as above, SBO, appendectomy, cholecystectomy, hysterectomy, bilateral hip pinning, multiple laparotomies, I&D superficial abdominal wall/skin abscess, PICC placement/removal/replacements, G tube placement/removal, colon resection FH: Family History: No pertinent hx Social History: Smoke: No ALCOHOL: none Drugs: None ROS: GEN: +fever HEENT: Denies blurred vision, sore throat CV: Denies chest pain RESP: Denies shortness of air, cough GI: Per HPI : Denies hematuria, dysuria ENDO: +weight loss NEURO: Denies confusion, dizziness MSK: +weakness SKIN: Denies jaundice, pruritus Vitals: Vitals: Vital Signs Date Time Temp Pulse Resp B/P (MAP) Pulse Ox O2 Delivery O2 Flow Rate FiO2 11/29/19 07:54 98.6 95 18 113/69 (84) 98 Room Air 98.6 Labs: Labs: Laboratory Tests Test 11/28/19 15:25 11/29/19 06:30 White Blood Count 7.6 x10^3/uL (4.0-11.0) 8.7 x10^3/uL (4.0-11.0) Red Blood Count 4.56 x10^6/uL (3.50-5.40) 3.28 x10^6/uL (3.50-5.40) Hemoglobin 13.9 g/dL (12.0-15.5) 10.0 g/dL (12.0-15.5) Hematocrit 41.3 % (36.0-47.0) 29.6 % (36.0-47.0) Mean Corpuscular Volume 91 fL (79-100) 91 fL (79-100) Mean Corpuscular Hemoglobin 30 pg (25-35) 30 pg (25-35) Mean Corpuscular Hemoglobin Concent 34 g/dL (31-37) 34 g/dL (31-37) Red Cell Distribution Width 18.7 % (11.5-14.5) 19.2 % (11.5-14.5) Platelet Count 307 x10^3/uL (140-400) 332 x10^3/uL (140-400) Neutrophils (%) (Auto) 78 % (31-73) 77 % (31-73) Lymphocytes (%) (Auto) 11 % (24-48) 10 % (24-48) Monocytes (%) (Auto) 7 % (0-9) 8 % (0-9) Eosinophils (%) (Auto) 3 % (0-3) 4 % (0-3) Basophils (%) (Auto) 1 % (0-3) 1 % (0-3) Neutrophils # (Auto) 5.9 x10^3/uL (1.8-7.7) 6.7 x10^3/uL (1.8-7.7) Lymphocytes # (Auto) 0.8 x10^3/uL (1.0-4.8) 0.8 x10^3/uL (1.0-4.8) Monocytes # (Auto) 0.6 x10^3/uL (0.0-1.1) 0.7 x10^3/uL (0.0-1.1) Eosinophils # (Auto) 0.3 x10^3/uL (0.0-0.7) 0.3 x10^3/uL (0.0-0.7) Basophils # (Auto) 0.1 x10^3/uL (0.0-0.2) 0.1 x10^3/uL (0.0-0.2) Urine Collection Type U cath Urine Color Yellow Urine Clarity Turbid Urine pH 5.5 (<5.0-8.0) Urine Specific [place] 1.020 (1.000-1.030) Urine Protein 30 mg/dL (NEG-TRACE) Urine Glucose (UA) Negative mg/dL (NEG) Urine Ketones (Stick) Negative mg/dL (NEG) Urine Blood Large (NEG) Urine Nitrite Positive (NEG) Urine Bilirubin Negative (NEG) Urine Urobilinogen Dipstick 0.2 mg/dL (0.2 mg/dL) Urine Leukocyte Esterase Large (NEG) Urine RBC >40 /HPF (0-2) Urine WBC >40 /HPF (0-4) Urine Squamous Epithelial Cells Mod /LPF Urine Bacteria Many /HPF (0-FEW) Urine Mucus Mod /LPF Sodium Level 140 mmol/L (136-145) 140 mmol/L (136-145) Potassium Level 4.6 mmol/L (3.5-5.1) 4.7 mmol/L (3.5-5.1) Chloride Level 109 mmol/L (98-107) 110 mmol/L (98-107) Carbon Dioxide Level 22 mmol/L (21-32) 23 mmol/L (21-32) Anion Gap 9 (6-14) 7 (6-14) Blood Urea Nitrogen 28 mg/dL (7-20) 15 mg/dL (7-20) Creatinine 0.6 mg/dL (0.6-1.0) 0.7 mg/dL (0.6-1.0) Estimated GFR (Cockcroft-Gault) 121.8 101.9 BUN/Creatinine Ratio 47 (6-20) Glucose Level 107 mg/dL (70-99) 95 mg/dL (70-99) Lactic Acid Level 1.2 mmol/L (0.4-2.0) Calcium Level 8.7 mg/dL (8.5-10.1) 8.0 mg/dL (8.5-10.1) Phosphorus Level 3.8 mg/dL (2.6-4.7) Total Bilirubin 0.4 mg/dL (0.2-1.0) Aspartate Amino Transf (AST/SGOT) 14 U/L (15-37) Alanine Aminotransferase (ALT/SGPT) 13 U/L (14-59) Alkaline Phosphatase 148 U/L (46-116) Troponin I Quantitative < 0.017 ng/mL (0.000-0.055) Total Protein 8.2 g/dL (6.4-8.2) Albumin 2.2 g/dL (3.4-5.0) Albumin/Globulin Ratio 0.4 (1.0-1.7) Lipase 72 U/L (73-393) Magnesium Level 1.6 mg/dL (1.8-2.4) Allergies: Coded Allergies: Iodinated Contrast Media (Verified Allergy, Severe, Anaphylaxis, 11/08/19) PT HAS BEEN PREMEDICATED BEFORE WITH NO PROBLEMS, 11-27-. vancomycin (Verified Allergy, Severe, Swelling, 11/08/19) Has tolerated PO vancomycin adhesive tape (Verified Allergy, Intermediate, Rash, 11/08/19) silver (Verified Allergy, Intermediate, Rash, Tegaderm film, can have on abd but no where else, 11/08/19) codeine (Verified Adverse Reaction, Severe, Nausea and Vomiting, 11/08/19) Medications: Current Medications Medications (Trade) Dose Ordered Sig/Alex Route PRN Reason Start Time Stop Time Status Last Admin Dose Admin Hydromorphone HCl (Dilaudid) 1 mg PRN Q15MIN PRN IV/SQ PAIN GREATER THAN 3/10 11/28/19 15:15 11/29/19 15:14 11/28/19 17:49 Piperacillin Sod/ Tazobactam Sod 3.375 gm/Sodium Chloride 50 ml @ 100 mls/hr 1X ONCE IV 11/28/19 15:30 11/28/19 15:59 DC 11/28/19 15:30 Sodium Chloride 1,000 ml @ 1,000 mls/hr 1X ONCE IV 11/28/19 15:15 11/28/19 16:14 DC 11/28/19 15:38 Linezolid/Dextrose 300 ml @ 300 mls/hr Q12HR IV 11/28/19 18:00 11/29/19 09:15 Piperacillin Sod/ Tazobactam Sod 3.375 gm/Sodium Chloride 50 ml @ 100 mls/hr Q6HRS IV 11/29/19 00:00 11/29/19 06:09 Potassium Chloride/Dextrose/ Sod Cl 1,000 ml @ 80 mls/hr [id number] IV 11/28/19 16:45 11/29/19 21:59 11/29/19 07:35 Fluconazole/ Sodium Chloride 100 ml @ 100 mls/hr Q24H IV 11/28/19 17:00 11/29/19 09:37 DC 11/28/19 18:17 Lidocaine HCl (Xylocaine 2% Topical 30gm Tube) 1 nallely BID TP 11/28/19 21:00 11/29/19 09:16 Zinc Oxide (Zinc Oxide 20% Topical) 1 nallely BID TP 11/28/19 21:00 11/29/19 09:16 Vancomycin HCl (Vancomycin Oral Solution) 125 mg [id number] PO 11/28/19 17:00 11/29/19 09:15 Pantoprazole Sodium (Protonix) 40 mg DAILYAC PO 11/29/19 07:30 11/29/19 06:09 Sertraline HCl (Zoloft) 50 mg DAILY PO 11/29/19 09:00 11/29/19 09:16 Ondansetron HCl (Zofran) 4 mg Q6HRS PRN IVP NAUSEA/VOMITING 11/28/19 16:45 11/28/19 20:18 Al Hydroxide/Mg Hydroxide (Mylanta Plus Xs) 30 ml PRN Q2HR PRN PO HEARTBURN / GAS 11/28/19 20:45 11/28/19 21:31 Hydromorphone HCl (Dilaudid) 2 mg PRN Q4HRS PRN IV MODERATE TO SEVERE PAIN 11/28/19 20:45 11/29/19 04:12 Imaging: Imaging: CT A/P IMPRESSION: 1. Interval resolution of bilateral pleural effusions and adjacent consolidative processes. 2. Similar degree of diffuse anasarca. Evaluation is significantly limitedby lack of intravenous and oral contrast as well as the lack of intraperitoneal fat. 3. Mildly distended bowel loops without definite bowel obstruction. Evaluate extraluminal fluid collection is limited by lack of intravenous contrast and intraperitoneal fat. Consider repeat evaluation with oral contrast there is persistent concern. Apparent wall thickening involving the transverse colon could reflect colitis. 4. Left ventral abdominal wall abscess appears decompressed without residual fluid. Tiny amount of residual air is noted with pigtail catheter in similar position. CXR Impression: 1. No acute cardiopulmonary process. PE: GEN: chronically ill - noticeably more thin than when we saw several months ago HEENT: Atraumatic, PERRL LUNGS: CTAB HEART: RRR ABD: chronic fistulae, drain LLQ w/ light brown/yellow drainage, thicker drainage around drain site w/ some induration EXTREMITY: No edema SKIN: No rashes, no jaundice NEURO/PSYCH: A & O 3, speaks slowly A/P: A/P: Fever, abd pain, odynophagia, diarrhea, weight loss Abd wall abscess s/p drain placement Chronic anemia H/o complicated diverticular disease w/ many surgeries, chronic fistulae w/ fluctuating drainage GERD, h/o esophageal candidiasis CRC screen - 2011 H/o C Diff S/p cholecystectomy -- IR opinion pending, ID following. Continue support per GI, will review w/ Dr. Ovalle. MIESHA RICO Nov 29, 2019 10:52
[2019-11-29 11:46] VITALS: BP 112/72
[2019-11-29] MEDS: TPN PER PHARMACY MC PRN (12:47)
--- NOTE | 2019-11-29 12:50 | NUR ---
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 Height: 5 feet, 4 inches Weight: 38.4 kg Current diet: NPO LABS: Sodium: 140 Potassium: 4.7 Chloride: 110 Calcium: 8.0 Corrected Calcium: 9.44 Magnesium: 1.6 CO2: 23 SCr: 0.7 Glucose: 95 Albumin: 2.2 AST: 14 ALT: 13 TPN FORMULA: TPN TYPE: Central Continuous AMINO ACIDS: 90 gm DEXTROSE: 285 gm LIPIDS: 35 gm SODIUM CHLORIDE: 120 mEq SODIUM ACETATE: 110 mEq POTASSIUM CHLORIDE: 30 mEq POTASSIUM PHOSPHATE: 22 mmol MAGNESIUM: 24 mEq CALCIUM: 10 mEq MULTIPLE VITAMIN: 10 ml TRACE ELEMENTS: 1 ml TPN PLAN: -Continue same TPN formula as per last admission. -BMP, mag, phos tomorrow. R: Begin TPN @ 80 ml/hr and with above formula. Will monitor electrolytes, glucose, and tolerance to TPN. FUENTES ESPINAL [facility], 11/29/19 [id number]
--- NOTE | 2019-11-29 14:31 | RAD ---
Left lower quadrant abdominal ultrasound compared to noncontrast CT scan of the abdomen and pelvis dated November 28, 2023 left lower quadrant abdominal swelling, history of abscess, existing drain. TECHNIQUE AND FINDINGS: Real-time grayscale imaging of the area of interest performed. Immediately cephalad to the percutaneous drain site, there is a 2.9 cm area of phlegmonous subcutaneous inflammation with no discrete drainable fluid collection. Just caudal to the percutaneous drain site and medially is a complex fluid collection which measures 4.8 cm transversely, and may be intraperitoneal. This corresponds to a large air and fluid collection seen at the midline in the periumbilical region on the patient's recent CT scan, but remains equivocal for extra enteric fluid collection versus bowel. Abscess is certainly possible, however better characterization of this abnormality is recommended with CT scan of the abdomen and pelvis with oral contrast at a minimum, and IV contrast as well if the patient's comorbidities allow. IMPRESSION: 1. 4.8 cm complex fluid collection in the periumbilical region which is concerning for an anterior intraperitoneal abscess, but cannot be definitively distinguished from aperistaltic bowel. Further characterization with CT scan of the abdomen and pelvis with oral contrast, and preferably with IV contrast as well if the patient's comorbidities allow, is recommended. Electronically signed by: Gene Telles MD (11/29/2019 2:28 PM) [id number]
[2019-11-29 15:28] VITALS: BP 110/64
--- NOTE | 2019-11-29 16:44 | PDOC2 ---
CONSULT Date of Consult Date of Consult DATE: 11/29/19 TIME: 16:39 Reason for Consult Reason for Consult: LLQ pain Referring Physician Referring Physician: Dr Cisneros Identification/Chief Complaint Chief Complaint abdominal pain Source Source: Chart review, Patient History of Present Illness Reason for Visit: Ms Miller is a 64 yo lady known to our service with a hx of an ECF. She comes back in with some pain around the drain that was placed during her last hospitalization. Past Medical History Cardiovascular: HTN Pulmonary: No pertinent hx CENTRAL NERVOUS SYSTEM: Other GI: Diverticulosis, GERD, Gastritis, Irritable bowel disease, Peptic Ulcer disease, Other Heme/Onc: Anemia NOS, Cancer, Other Hepatobiliary: No pertinent hx Psych: Anxiety, Depression Musculoskeletal: Osteoarthritis Rheumatologic: No pertinent hx Infectious disease: Other Renal/: Acute renal failure Endocrine: Hypothyroidism Past Surgical History Past Surgical History: Hysterectomy, Colon Resection, Other Family History Family History: Hypertension Social History No ALCOHOL: none Drugs: None Lives: with Family Current Problem List Problem List Problems Medical Problems: (1) Abdominal wall fistula Status: Acute (2) Intractable abdominal pain Status: Acute Current Medications Current Medications Current Medications Hydromorphone HCl (Dilaudid) 1 mg PRN Q15MIN PRN IV/SQ PAIN GREATER THAN 3/10 Last administered on 11/28/19at 17:49; Start 11/28/19 at 15:15; Stop 11/29/19 at 12:34; Status DC Piperacillin Sod/ Tazobactam Sod 3.375 gm/Sodium Chloride 50 ml @ 100 mls/hr 1X ONCE IV Last administered on 11/28/19at 15:30; Start 11/28/19 at 15:30; Stop 11/28/19 at 15:59; Status DC Sodium Chloride 1,000 ml @ 1,000 mls/hr 1X ONCE IV Last administered on 11/28/19at 15:38; Start 11/28/19 at 15:15; Stop 11/28/19 at 16:14; Status DC Info (Tpn Per Pharmacy) 1 each PRN DAILY PRN MC SEE COMMENTS Last administered on 11/29/19at 12:47; Start 11/29/19 at 22:00 Linezolid/Dextrose 300 ml @ 300 mls/hr Q12HR IV Last administered on 11/29/19at 09:15; Start 11/28/19 at 18:00 Piperacillin Sod/ Tazobactam Sod 3.375 gm/Sodium Chloride 50 ml @ 100 mls/hr Q6HRS IV Last administered on 11/29/19at 15:12; Start 11/29/19 at 00:00 Potassium Chloride/Dextrose/ Sod Cl 1,000 ml @ 80 mls/hr [id number] IV Last administered on 11/29/19at 07:35; Start 11/28/19 at 16:45; Stop 11/29/19 at 21:59 Hydromorphone HCl (Dilaudid) 1 mg Q4HRS PRN IV MODERATE PAIN; Start 11/28/19 at 16:45 Zolpidem Tartrate (Ambien) 5 mg PRN QHS PRN PO INSOMNIA; Start 11/28/19 at 16:45 Fluconazole/ Sodium Chloride 100 ml @ 100 mls/hr Q24H IV Last administered on 11/28/19at 18:17; Start 11/28/19 at 17:00; Stop 11/29/19 at 09:37; Status DC Lidocaine HCl (Xylocaine 2% Topical 30gm Tube) 1 sang BID TP Last administered on 11/29/19at 09:16; Start 11/28/19 at 21:00 Zinc Oxide (Zinc Oxide 20% Topical) 1 sang BID TP Last administered on 11/29/19at 09:16; Start 11/28/19 at 21:00 Vancomycin HCl (Vancomycin Oral Solution) 125 mg [id number] PO Last administered on 11/29/19at 15:12; Start 11/28/19 at 17:00 Acetaminophen (Tylenol) 650 mg Q6HRS PRN PO MILD PAIN / TEMP > 100.3'F; Start 11/28/19 at 16:45 Pantoprazole Sodium (Protonix) 40 mg DAILYAC PO Last administered on 11/29/19at 06:09; Start 11/29/19 at 07:30; Stop 11/29/19 at 11:34; Status DC Sertraline HCl (Zoloft) 50 mg DAILY PO Last administered on 11/29/19at 09:16; Start 11/29/19 at 09:00 Lorazepam (Ativan) 0.5 mg Q6HRS PRN PO ANXIETY / AGITATION; Start 11/28/19 at 16:45 Ondansetron HCl (Zofran) 4 mg Q6HRS PRN IVP NAUSEA/VOMITING Last administered on 11/28/19at 20:18; Start 11/28/19 at 16:45 Diphenhydramine HCl (Benadryl) 25 mg Q6HRS PRN PO ITCHING; Start 11/28/19 at 16:45 Al Hydroxide/Mg Hydroxide (Mylanta Plus Xs) 30 ml PRN Q2HR PRN PO HEARTBURN / GAS Last administered on 11/28/19at 21:31; Start 11/28/19 at 20:45 Hydromorphone HCl (Dilaudid) 2 mg PRN Q4HRS PRN IV SEVERE PAIN Last administered on 11/29/19at 15:12; Start 11/28/19 at 20:45 Fluconazole/ Sodium Chloride 200 ml @ 100 mls/hr Q24H IV ; Start 11/29/19 at 17:00 Magnesium Sulfate 50 ml @ 25 mls/hr 1X ONCE IV Last administered on 11/29/19at 10:30; Start 11/29/19 at 10:30; Stop 11/29/19 at 12:29; Status DC Pantoprazole Sodium (PROTONIX VIAL for IV PUSH) 40 mg DAILYAC IVP ; Start 11/30/19 at 07:30 Sodium Chloride 120 meq/Sodium Acetate 110 meq/ Potassium Chloride 30 meq/ Potassium Phosphate 22 mmol/ Magnesium Sulfate 24 meq/Calcium Gluconate 10 meq/ Multivitamins 10 ml/Chromium/ Copper/Manganese/ Seleni/Zn 1 ml/ Total Parenteral Nutrition/Amino Acids/Dextrose/ Fat Emulsion Intravenous 1,920 ml @ 80 mls/hr TPN CONT IV ; Start 11/29/19 at 22:00; Stop 11/30/19 at 21:59 Active Scripts Active Daptomycin 350 Mg Vial 300 Mg IV DAILY 3 Days Metronidazole 500 Mg Tablet 1 Tab PO Q8HRS 14 Days Dilaudid (Hydromorphone Hcl) 2 Mg Tablet 1 Tab PO Q6HRS PRN MDD 4 Tablet(s) Pantoprazole Sodium (Pantoprazole Sodium) 40 Mg Tablet.dr 40 Mg PO DAILYAC Tylenol (Acetaminophen) 325 Mg Tablet 650 Mg PO PRN Q6HRS PRN [Pantoprazole] 40 MG Tablet.dr 40 Mg PO DAILYAC 30 Days Zinc Oxide 56.7 Gm Oint...g. 1 Sang TP BID Ambien (Zolpidem Tartrate) 5 Mg Tablet 5 Mg PO PRN QHS PRN 30 Days [Tpn Per Pharmacy] 1 EACH Each 1 Each MC PRN DAILY PRN TPN at 85cc/hour Sertraline Hcl 50 Mg Tablet 50 Mg PO DAILY 30 Days Lidocaine 35.44 Gm Oint...g. 1 Sang TP BID Reported Ondansetron Hcl 4 Mg Tablet 4 Mg PO PRN Q6HRS PRN Lorazepam 0.5 Mg Tablet 0.5 Mg PO Q6HRS PRN Allergies Allergies: Coded Allergies: Iodinated Contrast Media (Verified Allergy, Severe, Anaphylaxis, 11/08/19) PT HAS BEEN PREMEDICATED BEFORE WITH NO PROBLEMS, 11-27-14. vancomycin (Verified Allergy, Severe, Swelling, 11/08/19) Has tolerated PO vancomycin adhesive tape (Verified Allergy, Intermediate, Rash, 11/08/19) silver (Verified Allergy, Intermediate, Rash, Tegaderm film, can have on abd but no where else, 11/08/19) codeine (Verified Adverse Reaction, Severe, Nausea and Vomiting, 11/08/19) ROS Gastrointestinal: Yes Abdominal Pain Physical Exam General: Alert, No acute distress, Other (cachectic) HEENT: Atraumatic Lungs: Normal air movement Heart: Regular rate Abdomen: Soft, Other (small amount of serous output in STACIE bulb) Neuro: Normal speech Vitals VITALS Vital Signs Date Time Temp Pulse Resp B/P (MAP) Pulse Ox O2 Delivery O2 Flow Rate FiO2 11/29/19 15:42 96 Room Air 11/29/19 15:28 98.8 88 16 110/64 (79) 98.8 Labs Labs Laboratory Tests Test 11/28/19 15:25 11/29/19 06:30 White Blood Count 7.6 x10^3/uL (4.0-11.0) 8.7 x10^3/uL (4.0-11.0) Red Blood Count 4.56 x10^6/uL (3.50-5.40) 3.28 x10^6/uL (3.50-5.40) Hemoglobin 13.9 g/dL (12.0-15.5) 10.0 g/dL (12.0-15.5) Hematocrit 41.3 % (36.0-47.0) 29.6 % (36.0-47.0) Mean Corpuscular Volume 91 fL (79-100) 91 fL (79-100) Mean Corpuscular Hemoglobin 30 pg (25-35) 30 pg (25-35) Mean Corpuscular Hemoglobin Concent 34 g/dL (31-37) 34 g/dL (31-37) Red Cell Distribution Width 18.7 % (11.5-14.5) 19.2 % (11.5-14.5) Platelet Count 307 x10^3/uL (140-400) 332 x10^3/uL (140-400) Neutrophils (%) (Auto) 78 % (31-73) 77 % (31-73) Lymphocytes (%) (Auto) 11 % (24-48) 10 % (24-48) Monocytes (%) (Auto) 7 % (0-9) 8 % (0-9) Eosinophils (%) (Auto) 3 % (0-3) 4 % (0-3) Basophils (%) (Auto) 1 % (0-3) 1 % (0-3) Neutrophils # (Auto) 5.9 x10^3/uL (1.8-7.7) 6.7 x10^3/uL (1.8-7.7) Lymphocytes # (Auto) 0.8 x10^3/uL (1.0-4.8) 0.8 x10^3/uL (1.0-4.8) Monocytes # (Auto) 0.6 x10^3/uL (0.0-1.1) 0.7 x10^3/uL (0.0-1.1) Eosinophils # (Auto) 0.3 x10^3/uL (0.0-0.7) 0.3 x10^3/uL (0.0-0.7) Basophils # (Auto) 0.1 x10^3/uL (0.0-0.2) 0.1 x10^3/uL (0.0-0.2) Urine Collection Type U cath Urine Color Yellow Urine Clarity Turbid Urine pH 5.5 (<5.0-8.0) Urine Specific [place] 1.020 (1.000-1.030) Urine Protein 30 mg/dL (NEG-TRACE) Urine Glucose (UA) Negative mg/dL (NEG) Urine Ketones (Stick) Negative mg/dL (NEG) Urine Blood Large (NEG) Urine Nitrite Positive (NEG) Urine Bilirubin Negative (NEG) Urine Urobilinogen Dipstick 0.2 mg/dL (0.2 mg/dL) Urine Leukocyte Esterase Large (NEG) Urine RBC >40 /HPF (0-2) Urine WBC >40 /HPF (0-4) Urine Squamous Epithelial Cells Mod /LPF Urine Bacteria Many /HPF (0-FEW) Urine Mucus Mod /LPF Sodium Level 140 mmol/L (136-145) 140 mmol/L (136-145) Potassium Level 4.6 mmol/L (3.5-5.1) 4.7 mmol/L (3.5-5.1) Chloride Level 109 mmol/L (98-107) 110 mmol/L (98-107) Carbon Dioxide Level 22 mmol/L (21-32) 23 mmol/L (21-32) Anion Gap 9 (6-14) 7 (6-14) Blood Urea Nitrogen 28 mg/dL (7-20) 15 mg/dL (7-20) Creatinine 0.6 mg/dL (0.6-1.0) 0.7 mg/dL (0.6-1.0) Estimated GFR (Cockcroft-Gault) 121.8 101.9 BUN/Creatinine Ratio 47 (6-20) Glucose Level 107 mg/dL (70-99) 95 mg/dL (70-99) Lactic Acid Level 1.2 mmol/L (0.4-2.0) Calcium Level 8.7 mg/dL (8.5-10.1) 8.0 mg/dL (8.5-10.1) Phosphorus Level 3.8 mg/dL (2.6-4.7) Total Bilirubin 0.4 mg/dL (0.2-1.0) Aspartate Amino Transf (AST/SGOT) 14 U/L (15-37) Alanine Aminotransferase (ALT/SGPT) 13 U/L (14-59) Alkaline Phosphatase 148 U/L (46-116) Troponin I Quantitative < 0.017 ng/mL (0.000-0.055) Total Protein 8.2 g/dL (6.4-8.2) Albumin 2.2 g/dL (3.4-5.0) Albumin/Globulin Ratio 0.4 (1.0-1.7) Lipase 72 U/L (73-393) Magnesium Level 1.6 mg/dL (1.8-2.4) Laboratory Tests Test 11/29/19 06:30 White Blood Count 8.7 x10^3/uL (4.0-11.0) Red Blood Count 3.28 x10^6/uL (3.50-5.40) Hemoglobin 10.0 g/dL (12.0-15.5) Hematocrit 29.6 % (36.0-47.0) Mean Corpuscular Volume 91 fL (79-100) Mean Corpuscular Hemoglobin 30 pg (25-35) Mean Corpuscular Hemoglobin Concent 34 g/dL (31-37) Red Cell Distribution Width 19.2 % (11.5-14.5) Platelet Count 332 x10^3/uL (140-400) Neutrophils (%) (Auto) 77 % (31-73) Lymphocytes (%) (Auto) 10 % (24-48) Monocytes (%) (Auto) 8 % (0-9) Eosinophils (%) (Auto) 4 % (0-3) Basophils (%) (Auto) 1 % (0-3) Neutrophils # (Auto) 6.7 x10^3/uL (1.8-7.7) Lymphocytes # (Auto) 0.8 x10^3/uL (1.0-4.8) Monocytes # (Auto) 0.7 x10^3/uL (0.0-1.1) Eosinophils # (Auto) 0.3 x10^3/uL (0.0-0.7) Basophils # (Auto) 0.1 x10^3/uL (0.0-0.2) Sodium Level 140 mmol/L (136-145) Potassium Level 4.7 mmol/L (3.5-5.1) Chloride Level 110 mmol/L (98-107) Carbon Dioxide Level 23 mmol/L (21-32) Anion Gap 7 (6-14) Blood Urea Nitrogen 15 mg/dL (7-20) Creatinine 0.7 mg/dL (0.6-1.0) Estimated GFR (Cockcroft-Gault) 101.9 Glucose Level 95 mg/dL (70-99) Calcium Level 8.0 mg/dL (8.5-10.1) Magnesium Level 1.6 mg/dL (1.8-2.4) Images Images CT done on presentation is reviewed Assessment/Plan Assessment/Plan hx of ECF no acute surgical needs will review films with radiologist in the AM will follow Thanks for consult ANIA PATTON MD Nov 29, 2019 16:43
--- NOTE | 2019-11-29 16:58 | NUR ---
SW following for discharge planning. SW reviewed chart and spoke with RN. Pt from home. Pt would benefit from SNU per OT notes. Pt on room air. Pt on IV abx. SW to continue following.
[2019-11-29 19:54] VITALS: BP 116/60
[2019-11-29] MEDS: FLUCONAZOLE 400MG/200ML PREMIX 200 ML IV SCH (20:02)
[2019-11-29] MEDS ORDERED: TOTAL PARENTERAL NUTRITION IV SCH ×11 (22:00)
[2019-11-29] MEDS ORDERED: DEXTROSE 70% IV SCH ×11 (22:00)
[2019-11-29] MEDS ORDERED: AMINO ACID IV SCH ×11 (22:00)
[2019-11-29] MEDS ORDERED: [UNRECOGNIZED DRUG - OTHER] IV SCH ×11 (22:00)
[2019-11-29 23:38] VITALS: BP 146/86
[2019-11-30 03:30] VITALS: BP 129/81
[2019-11-30] MEDS: HYDROmorphone 2 MG/ML VIAL IV PRN ×5 (04:13→22:11)
[2019-11-30 04:44] LABS: BASO # 0.1 x10^3/uL (0.0-0.2); BASO % 1 % (0-3); EOS # 0.6 x10^3/uL (0.0-0.7); EOS % 7 % (0-3); HEMATOCRIT 30.2 % (36.0-47.0); HEMOGLOBIN 9.9 g/dL (12.0-15.5); LYMPH # 1.1 x10^3/uL (1.0-4.8); LYMPH % 13 % (24-48); MEAN CORPUSCULAR HEMOGLOBIN 30 pg (25-35); MEAN CORPUSCULAR HGB CONC 33 g/dL (31-37); MEAN CORPUSCULAR VOLUME 90 fL (79-100); MONO # 0.6 x10^3/uL (0.0-1.1); MONO % 8 % (0-9); NEUT # 5.8 x10^3/uL (1.8-7.7); NEUT % 71 % (31-73); PLATELET COUNT 362 x10^3/uL (140-400); RED BLOOD COUNT 3.34 x10^6/uL (3.50-5.40); WHITE BLOOD COUNT 8.2 x10^3/uL (4.0-11.0)
[2019-11-30] MEDS: PIPERACILLIN/TAZOBACTAM 3.375 GM in IV NORMAL SALINE 50ML 50 ML IV SCH ×3 (05:07→17:54)
[2019-11-30 05:20] LABS: CALCIUM 8.3 mg/dL (8.5-10.1); CREATININE 0.6 mg/dL (0.6-1.0); GFR 121.8; MAGNESIUM 2.1 mg/dL (1.8-2.4); PHOSPHORUS 3.2 mg/dL (2.6-4.7); POTASSIUM 4.6 mmol/L (3.5-5.1)
[2019-11-30 07:15] VITALS: BP 114/68
[2019-11-30] MEDS: SERTRALINE 50 MG TABLET. PO SCH (09:00)
--- NOTE | 2019-11-30 09:30 | PDOC ---
Infectious Disease Note Subjective Subjective Better aside from the pain in abdomen No F/C/S/SOA/swallowing problems/rash ROS ROS neg Vital Sign Vital Signs Vital Signs Date Time Temp Pulse Resp B/P (MAP) Pulse Ox O2 Delivery O2 Flow Rate FiO2 11/30/19 07:15 98.2 104 16 114/68 (83) 99 Room Air 98.2 Physical Exam PHYSICAL EXAM CONSTITUTIONAL: She is alert. She looks comfortable. She is cachectic. She is in no acute distress. HEENT: Pupils equal and reactive. She has normal conjunctivae. Oral cavity, pharynx is without thrush. NECK: Supple, no JVD. LUNGS: Decreased in the bases. HEART: S1, S2. ABDOMEN: Not distended. She has a chronic excoriations, but healing areas as well. Now has purulent material draining from low mid ant area. She has a drain in the left lower quadrant with some mild purulent material, appears to be leaking around. STACIE has some serous type fluid currently. EXTREMITIES: Without clubbing or cyanosis. She has trace edema. SKIN: Warm to touch without signs of rash. NEUROLOGIC: She is nonfocal, moves all extremities. Her right chest IV line is without signs of any complications. Labs Lab Laboratory Tests Test 11/30/19 04:25 White Blood Count 8.2 x10^3/uL (4.0-11.0) Red Blood Count 3.34 x10^6/uL (3.50-5.40) Hemoglobin 9.9 g/dL (12.0-15.5) Hematocrit 30.2 % (36.0-47.0) Mean Corpuscular Volume 90 fL (79-100) Mean Corpuscular Hemoglobin 30 pg (25-35) Mean Corpuscular Hemoglobin Concent 33 g/dL (31-37) Red Cell Distribution Width 19.0 % (11.5-14.5) Platelet Count 362 x10^3/uL (140-400) Neutrophils (%) (Auto) 71 % (31-73) Lymphocytes (%) (Auto) 13 % (24-48) Monocytes (%) (Auto) 8 % (0-9) Eosinophils (%) (Auto) 7 % (0-3) Basophils (%) (Auto) 1 % (0-3) Neutrophils # (Auto) 5.8 x10^3/uL (1.8-7.7) Lymphocytes # (Auto) 1.1 x10^3/uL (1.0-4.8) Monocytes # (Auto) 0.6 x10^3/uL (0.0-1.1) Eosinophils # (Auto) 0.6 x10^3/uL (0.0-0.7) Basophils # (Auto) 0.1 x10^3/uL (0.0-0.2) Sodium Level 136 mmol/L (136-145) Potassium Level 4.6 mmol/L (3.5-5.1) Chloride Level 107 mmol/L (98-107) Carbon Dioxide Level 20 mmol/L (21-32) Anion Gap 9 (6-14) Blood Urea Nitrogen 14 mg/dL (7-20) Creatinine 0.6 mg/dL (0.6-1.0) Estimated GFR (Cockcroft-Gault) 121.8 Glucose Level 103 mg/dL (70-99) Calcium Level 8.3 mg/dL (8.5-10.1) Phosphorus Level 3.2 mg/dL (2.6-4.7) Magnesium Level 2.1 mg/dL (1.8-2.4) Micro IMPRESSION: 1. 4.8 cm complex fluid collection in the periumbilical region which is concerning for an anterior intraperitoneal abscess, but cannot be definitively distinguished from aperistaltic bowel. Further characterization with CT scan of the abdomen and pelvis with oral contrast, and preferably with IV contrast as well if the patient's comorbidities allow, is recommended. Microbiology 11/28/19 Blood Culture - Preliminary, Resulted NO GROWTH AFTER 1 DAY Objective Assessment Fever - better Abd Pain 4.8 ? complex fluid collection Drain leakage Vanc allergy Short gut H/o C-diff H/o Abdominal wall abscess Enterocutaneous fistula. Enterovesicular fistula. Malnutrition. H/o Esophagitis. Anemia Chronic TPN H/o Coagulase-negative staph on blood culture,msse status post line change, repeat blood cultures negative Plan Plan of Care Cont Zosyn/Zyvox/Diflucan but increased to 400 mg 11/28/po Vanc Await further surgical eval. Consult IR for drain eval with leakage around drain F/u labs and cults - Urine ? ABBY MOTT MD Nov 30, 2019 09:30
[2019-11-30] MEDS: PANTOPRAZOLE IV PUSH 40 MG VIAL. IVP SCH (09:45)
--- NOTE | 2019-11-30 09:50 | PDOC ---
SURGICAL PROGRESS NOTE Subjective Patient feeling better this morning she thinks things have improved on her abdomen Vital Signs Vital Signs Date Time Temp Pulse Resp B/P (MAP) Pulse Ox O2 Delivery O2 Flow Rate FiO2 11/30/19 07:15 98.2 104 16 114/68 (83) 99 Room Air 98.2 I&O Intake and Output 11/30/19 07:00 Intake Total 600 ml Output Total 190 ml Balance 410 ml Intake Oral 600 ml Drainage Total 190 ml # Voids 7 # Bowel Movements 3 PATIENT HAS A GUPTA: No General: Alert, Oriented X3, Cooperative, mild distress Abdomen: Normal bowel sounds, Soft, Other (Drain in place with purulent drainage within the STACIE bulb she has a small pinpoint hole about 3 cm above the where the drain is placed with some purulent drainage mild erythema tender to palpation) Labs Laboratory Tests Test 11/28/19 15:25 11/29/19 06:30 11/30/19 04:25 White Blood Count 7.6 x10^3/uL (4.0-11.0) 8.7 x10^3/uL (4.0-11.0) 8.2 x10^3/uL (4.0-11.0) Red Blood Count 4.56 x10^6/uL (3.50-5.40) 3.28 x10^6/uL (3.50-5.40) 3.34 x10^6/uL (3.50-5.40) Hemoglobin 13.9 g/dL (12.0-15.5) 10.0 g/dL (12.0-15.5) 9.9 g/dL (12.0-15.5) Hematocrit 41.3 % (36.0-47.0) 29.6 % (36.0-47.0) 30.2 % (36.0-47.0) Mean Corpuscular Volume 91 fL (79-100) 91 fL (79-100) 90 fL (79-100) Mean Corpuscular Hemoglobin 30 pg (25-35) 30 pg (25-35) 30 pg (25-35) Mean Corpuscular Hemoglobin Concent 34 g/dL (31-37) 34 g/dL (31-37) 33 g/dL (31-37) Red Cell Distribution Width 18.7 % (11.5-14.5) 19.2 % (11.5-14.5) 19.0 % (11.5-14.5) Platelet Count 307 x10^3/uL (140-400) 332 x10^3/uL (140-400) 362 x10^3/uL (140-400) Neutrophils (%) (Auto) 78 % (31-73) 77 % (31-73) 71 % (31-73) Lymphocytes (%) (Auto) 11 % (24-48) 10 % (24-48) 13 % (24-48) Monocytes (%) (Auto) 7 % (0-9) 8 % (0-9) 8 % (0-9) Eosinophils (%) (Auto) 3 % (0-3) 4 % (0-3) 7 % (0-3) Basophils (%) (Auto) 1 % (0-3) 1 % (0-3) 1 % (0-3) Neutrophils # (Auto) 5.9 x10^3/uL (1.8-7.7) 6.7 x10^3/uL (1.8-7.7) 5.8 x10^3/uL (1.8-7.7) Lymphocytes # (Auto) 0.8 x10^3/uL (1.0-4.8) 0.8 x10^3/uL (1.0-4.8) 1.1 x10^3/uL (1.0-4.8) Monocytes # (Auto) 0.6 x10^3/uL (0.0-1.1) 0.7 x10^3/uL (0.0-1.1) 0.6 x10^3/uL (0.0-1.1) Eosinophils # (Auto) 0.3 x10^3/uL (0.0-0.7) 0.3 x10^3/uL (0.0-0.7) 0.6 x10^3/uL (0.0-0.7) Basophils # (Auto) 0.1 x10^3/uL (0.0-0.2) 0.1 x10^3/uL (0.0-0.2) 0.1 x10^3/uL (0.0-0.2) Urine Collection Type U cath Urine Color Yellow Urine Clarity Turbid Urine pH 5.5 (<5.0-8.0) Urine Specific [place] 1.020 (1.000-1.030) Urine Protein 30 mg/dL (NEG-TRACE) Urine Glucose (UA) Negative mg/dL (NEG) Urine Ketones (Stick) Negative mg/dL (NEG) Urine Blood Large (NEG) Urine Nitrite Positive (NEG) Urine Bilirubin Negative (NEG) Urine Urobilinogen Dipstick 0.2 mg/dL (0.2 mg/dL) Urine Leukocyte Esterase Large (NEG) Urine RBC >40 /HPF (0-2) Urine WBC >40 /HPF (0-4) Urine Squamous Epithelial Cells Mod /LPF Urine Bacteria Many /HPF (0-FEW) Urine Mucus Mod /LPF Sodium Level 140 mmol/L (136-145) 140 mmol/L (136-145) 136 mmol/L (136-145) Potassium Level 4.6 mmol/L (3.5-5.1) 4.7 mmol/L (3.5-5.1) 4.6 mmol/L (3.5-5.1) Chloride Level 109 mmol/L (98-107) 110 mmol/L (98-107) 107 mmol/L (98-107) Carbon Dioxide Level 22 mmol/L (21-32) 23 mmol/L (21-32) 20 mmol/L (21-32) Anion Gap 9 (6-14) 7 (6-14) 9 (6-14) Blood Urea Nitrogen 28 mg/dL (7-20) 15 mg/dL (7-20) 14 mg/dL (7-20) Creatinine 0.6 mg/dL (0.6-1.0) 0.7 mg/dL (0.6-1.0) 0.6 mg/dL (0.6-1.0) Estimated GFR (Cockcroft-Gault) 121.8 101.9 121.8 BUN/Creatinine Ratio 47 (6-20) Glucose Level 107 mg/dL (70-99) 95 mg/dL (70-99) 103 mg/dL (70-99) Lactic Acid Level 1.2 mmol/L (0.4-2.0) Calcium Level 8.7 mg/dL (8.5-10.1) 8.0 mg/dL (8.5-10.1) 8.3 mg/dL (8.5-10.1) Phosphorus Level 3.8 mg/dL (2.6-4.7) 3.2 mg/dL (2.6-4.7) Total Bilirubin 0.4 mg/dL (0.2-1.0) Aspartate Amino Transf (AST/SGOT) 14 U/L (15-37) Alanine Aminotransferase (ALT/SGPT) 13 U/L (14-59) Alkaline Phosphatase 148 U/L (46-116) Troponin I Quantitative < 0.017 ng/mL (0.000-0.055) Total Protein 8.2 g/dL (6.4-8.2) Albumin 2.2 g/dL (3.4-5.0) Albumin/Globulin Ratio 0.4 (1.0-1.7) Lipase 72 U/L (73-393) Magnesium Level 1.6 mg/dL (1.8-2.4) 2.1 mg/dL (1.8-2.4) Laboratory Tests Test 11/30/19 04:25 White Blood Count 8.2 x10^3/uL (4.0-11.0) Red Blood Count 3.34 x10^6/uL (3.50-5.40) Hemoglobin 9.9 g/dL (12.0-15.5) Hematocrit 30.2 % (36.0-47.0) Mean Corpuscular Volume 90 fL (79-100) Mean Corpuscular Hemoglobin 30 pg (25-35) Mean Corpuscular Hemoglobin Concent 33 g/dL (31-37) Red Cell Distribution Width 19.0 % (11.5-14.5) Platelet Count 362 x10^3/uL (140-400) Neutrophils (%) (Auto) 71 % (31-73) Lymphocytes (%) (Auto) 13 % (24-48) Monocytes (%) (Auto) 8 % (0-9) Eosinophils (%) (Auto) 7 % (0-3) Basophils (%) (Auto) 1 % (0-3) Neutrophils # (Auto) 5.8 x10^3/uL (1.8-7.7) Lymphocytes # (Auto) 1.1 x10^3/uL (1.0-4.8) Monocytes # (Auto) 0.6 x10^3/uL (0.0-1.1) Eosinophils # (Auto) 0.6 x10^3/uL (0.0-0.7) Basophils # (Auto) 0.1 x10^3/uL (0.0-0.2) Sodium Level 136 mmol/L (136-145) Potassium Level 4.6 mmol/L (3.5-5.1) Chloride Level 107 mmol/L (98-107) Carbon Dioxide Level 20 mmol/L (21-32) Anion Gap 9 (6-14) Blood Urea Nitrogen 14 mg/dL (7-20) Creatinine 0.6 mg/dL (0.6-1.0) Estimated GFR (Cockcroft-Gault) 121.8 Glucose Level 103 mg/dL (70-99) Calcium Level 8.3 mg/dL (8.5-10.1) Phosphorus Level 3.2 mg/dL (2.6-4.7) Magnesium Level 2.1 mg/dL (1.8-2.4) Problem List Problems Medical Problems: (1) Abdominal wall fistula Status: Acute (2) Intractable abdominal pain Status: Acute Assessment/Plan Enterocutaneous fistulas with abscess formations currently with drain in place new area of fluid collection to be evaluated by interventional radiology for possible drain placement Unfortunately patient is prohibitive risk for surgery due to multiple abdominal surgeries We will continue to follow Justicifation of Admission Dx: Justifications for Admission: Justification of Admission Dx: Yes ANDERSON LOPEZ MD Nov 30, 2019 09:50
--- NOTE | 2019-11-30 10:16 | PDOC ---
Subjective: Subjective: I saw her earlier - told me pain is worse. Wants to eat. Objective: Vital Signs: Vital Signs Date Time Temp Pulse Resp B/P (MAP) Pulse Ox O2 Delivery O2 Flow Rate FiO2 11/30/19 09:45 99 Room Air 11/30/19 07:15 98.2 104 16 114/68 (83) 98.2 Labs: Laboratory Tests Test 11/30/19 04:25 White Blood Count 8.2 x10^3/uL Red Blood Count 3.34 x10^6/uL Hemoglobin 9.9 g/dL Hematocrit 30.2 % Mean Corpuscular Volume 90 fL Mean Corpuscular Hemoglobin 30 pg Mean Corpuscular Hemoglobin Concent 33 g/dL Red Cell Distribution Width 19.0 % Platelet Count 362 x10^3/uL Neutrophils (%) (Auto) 71 % Lymphocytes (%) (Auto) 13 % Monocytes (%) (Auto) 8 % Eosinophils (%) (Auto) 7 % Basophils (%) (Auto) 1 % Neutrophils # (Auto) 5.8 x10^3/uL Lymphocytes # (Auto) 1.1 x10^3/uL Monocytes # (Auto) 0.6 x10^3/uL Eosinophils # (Auto) 0.6 x10^3/uL Basophils # (Auto) 0.1 x10^3/uL Sodium Level 136 mmol/L Potassium Level 4.6 mmol/L Chloride Level 107 mmol/L Carbon Dioxide Level 20 mmol/L Anion Gap 9 Blood Urea Nitrogen 14 mg/dL Creatinine 0.6 mg/dL Estimated GFR (Cockcroft-Gault) 121.8 Glucose Level 103 mg/dL Calcium Level 8.3 mg/dL Phosphorus Level 3.2 mg/dL Magnesium Level 2.1 mg/dL BLOOD CULTURE Preliminary NO GROWTH AFTER 1 DAY Imaging: LLQ US IMPRESSION: 1. 4.8 cm complex fluid collection in the periumbilical region which is concerning for an anterior intraperitoneal abscess, but cannot be definitively distinguished from aperistaltic bowel. Further characterization with CT scan of the abdomen and pelvis with oral contrast, and preferably with IV contrast as well if the patient's comorbidities allow, is recommended. 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 Previous GI recs for NPO (except ice chips and vanco) - she's on chronic TPN. Other per Dr. Ovalle. 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 Cisneros to get an order for food. D/w [place] - we will defer diet to Dr. Cisneros. Justicifation of Admission Dx: Justifications for Admission: Justification of Admission Dx: Yes MIESHA RICO Nov 30, 2019 10:15
[2019-11-30] MEDS: ZINC OXIDE 20% TOPICAL OINTMENT 28GM TUBE. TP SCH ×2 (10:34→20:51)
[2019-11-30] MEDS: VANCOMYCIN 125 MG/2.5 ML ORAL SOLUTION. PO SCH ×4 (10:34→20:51)
[2019-11-30] MEDS: LIDOCAINE 2% TOPICAL JELLY 30GM TUBE. TP SCH ×2 (10:34→20:51)
[2019-11-30 11:10] VITALS: BP 156/90
--- NOTE | 2019-11-30 11:57 | NUR ---
SS following up with discharge planning. SS reviewed pt chart and discussed with pt RN. Pt is from home with family and is currently on room air. Pt has TPN at home through [facility], ; fax [phone]. Pt was also on services with [facility], ; fax [phone]. Pt on IV Zosyn and Zyvox. PT/OT ordered and recommended long-term unit. SS spoke with pt's daughter, Manjit Miller, , to discuss discharge planning. Pt's daughter reported that pt will NEVER go to long-term unit. Pt's daughter reported that pt will return to home with continued services through [facility] and [facility]. SS will continue to follow for discharge planning.
--- NOTE | 2019-11-30 12:02 | PDOC ---
PROGRESS NOTES Subjective Subjective wants vanilla ice cream. abdominal ultrasound shows a 4.8 cm fluid collection . Objective Objective Vital Signs Date Time Temp Pulse Resp B/P (MAP) Pulse Ox O2 Delivery O2 Flow Rate FiO2 11/30/19 11:10 98.6 101 16 156/90 (112) 100 Room Air 98.6 Intake and Output 11/30/19 07:00 Intake Total 600 ml Output Total 190 ml Balance 410 ml Intake Oral 600 ml Drainage Total 190 ml # Voids 7 # Bowel Movements 3 Physical Exam Abdomen: Soft, Other (STACIE drain LLQ. abdominal wall induration and tenderness by abdominal drain. yellow material drained outisede of STACIE drain when palpated, ) Heart: Regular rate, Normal S1, Normal S2 Extremities: No edema General: Alert HEENT: Atraumatic Lungs: Clear to auscultation Neuro: Normal speech Psych/Mental Status: Mental status NL Skin: No rashes Assessment Assessment Problems1. Fever resolved 2. 4.8 cm fluid collection on ultrasound. suspect intra abdominal abscess next to STACIE drain 3. History of chronic abdominal pain due to abdominal adhesions. 4. Severe protein-calorie malnutrition. 5. History of Clostridium difficile colitis within the last year. 6. Enterovesical fistula. 7. Enterocutaneous fistula. indurated area LLQ abominal wall. 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 Labs Laboratory Tests Test 11/28/19 15:25 11/29/19 06:30 11/30/19 04:25 White Blood Count 7.6 x10^3/uL (4.0-11.0) 8.7 x10^3/uL (4.0-11.0) 8.2 x10^3/uL (4.0-11.0) Red Blood Count 4.56 x10^6/uL (3.50-5.40) 3.28 x10^6/uL (3.50-5.40) 3.34 x10^6/uL (3.50-5.40) Hemoglobin 13.9 g/dL (12.0-15.5) 10.0 g/dL (12.0-15.5) 9.9 g/dL (12.0-15.5) Hematocrit 41.3 % (36.0-47.0) 29.6 % (36.0-47.0) 30.2 % (36.0-47.0) Mean Corpuscular Volume 91 fL (79-100) 91 fL (79-100) 90 fL (79-100) Mean Corpuscular Hemoglobin 30 pg (25-35) 30 pg (25-35) 30 pg (25-35) Mean Corpuscular Hemoglobin Concent 34 g/dL (31-37) 34 g/dL (31-37) 33 g/dL (31-37) Red Cell Distribution Width 18.7 % (11.5-14.5) 19.2 % (11.5-14.5) 19.0 % (11.5-14.5) Platelet Count 307 x10^3/uL (140-400) 332 x10^3/uL (140-400) 362 x10^3/uL (140-400) Neutrophils (%) (Auto) 78 % (31-73) 77 % (31-73) 71 % (31-73) Lymphocytes (%) (Auto) 11 % (24-48) 10 % (24-48) 13 % (24-48) Monocytes (%) (Auto) 7 % (0-9) 8 % (0-9) 8 % (0-9) Eosinophils (%) (Auto) 3 % (0-3) 4 % (0-3) 7 % (0-3) Basophils (%) (Auto) 1 % (0-3) 1 % (0-3) 1 % (0-3) Neutrophils # (Auto) 5.9 x10^3/uL (1.8-7.7) 6.7 x10^3/uL (1.8-7.7) 5.8 x10^3/uL (1.8-7.7) Lymphocytes # (Auto) 0.8 x10^3/uL (1.0-4.8) 0.8 x10^3/uL (1.0-4.8) 1.1 x10^3/uL (1.0-4.8) Monocytes # (Auto) 0.6 x10^3/uL (0.0-1.1) 0.7 x10^3/uL (0.0-1.1) 0.6 x10^3/uL (0.0-1.1) Eosinophils # (Auto) 0.3 x10^3/uL (0.0-0.7) 0.3 x10^3/uL (0.0-0.7) 0.6 x10^3/uL (0.0-0.7) Basophils # (Auto) 0.1 x10^3/uL (0.0-0.2) 0.1 x10^3/uL (0.0-0.2) 0.1 x10^3/uL (0.0-0.2) Urine Collection Type U cath Urine Color Yellow Urine Clarity Turbid Urine pH 5.5 (<5.0-8.0) Urine Specific [place] 1.020 (1.000-1.030) Urine Protein 30 mg/dL (NEG-TRACE) Urine Glucose (UA) Negative mg/dL (NEG) Urine Ketones (Stick) Negative mg/dL (NEG) Urine Blood Large (NEG) Urine Nitrite Positive (NEG) Urine Bilirubin Negative (NEG) Urine Urobilinogen Dipstick 0.2 mg/dL (0.2 mg/dL) Urine Leukocyte Esterase Large (NEG) Urine RBC >40 /HPF (0-2) Urine WBC >40 /HPF (0-4) Urine Squamous Epithelial Cells Mod /LPF Urine Bacteria Many /HPF (0-FEW) Urine Mucus Mod /LPF Sodium Level 140 mmol/L (136-145) 140 mmol/L (136-145) 136 mmol/L (136-145) Potassium Level 4.6 mmol/L (3.5-5.1) 4.7 mmol/L (3.5-5.1) 4.6 mmol/L (3.5-5.1) Chloride Level 109 mmol/L (98-107) 110 mmol/L (98-107) 107 mmol/L (98-107) Carbon Dioxide Level 22 mmol/L (21-32) 23 mmol/L (21-32) 20 mmol/L (21-32) Anion Gap 9 (6-14) 7 (6-14) 9 (6-14) Blood Urea Nitrogen 28 mg/dL (7-20) 15 mg/dL (7-20) 14 mg/dL (7-20) Creatinine 0.6 mg/dL (0.6-1.0) 0.7 mg/dL (0.6-1.0) 0.6 mg/dL (0.6-1.0) Estimated GFR (Cockcroft-Gault) 121.8 101.9 121.8 BUN/Creatinine Ratio 47 (6-20) Glucose Level 107 mg/dL (70-99) 95 mg/dL (70-99) 103 mg/dL (70-99) Lactic Acid Level 1.2 mmol/L (0.4-2.0) Calcium Level 8.7 mg/dL (8.5-10.1) 8.0 mg/dL (8.5-10.1) 8.3 mg/dL (8.5-10.1) Phosphorus Level 3.8 mg/dL (2.6-4.7) 3.2 mg/dL (2.6-4.7) Total Bilirubin 0.4 mg/dL (0.2-1.0) Aspartate Amino Transf (AST/SGOT) 14 U/L (15-37) Alanine Aminotransferase (ALT/SGPT) 13 U/L (14-59) Alkaline Phosphatase 148 U/L (46-116) Troponin I Quantitative < 0.017 ng/mL (0.000-0.055) Total Protein 8.2 g/dL (6.4-8.2) Albumin 2.2 g/dL (3.4-5.0) Albumin/Globulin Ratio 0.4 (1.0-1.7) Lipase 72 U/L (73-393) Magnesium Level 1.6 mg/dL (1.8-2.4) 2.1 mg/dL (1.8-2.4) Laboratory Tests Test 11/30/19 04:25 White Blood Count 8.2 x10^3/uL (4.0-11.0) Red Blood Count 3.34 x10^6/uL (3.50-5.40) Hemoglobin 9.9 g/dL (12.0-15.5) Hematocrit 30.2 % (36.0-47.0) Mean Corpuscular Volume 90 fL (79-100) Mean Corpuscular Hemoglobin 30 pg (25-35) Mean Corpuscular Hemoglobin Concent 33 g/dL (31-37) Red Cell Distribution Width 19.0 % (11.5-14.5) Platelet Count 362 x10^3/uL (140-400) Neutrophils (%) (Auto) 71 % (31-73) Lymphocytes (%) (Auto) 13 % (24-48) Monocytes (%) (Auto) 8 % (0-9) Eosinophils (%) (Auto) 7 % (0-3) Basophils (%) (Auto) 1 % (0-3) Neutrophils # (Auto) 5.8 x10^3/uL (1.8-7.7) Lymphocytes # (Auto) 1.1 x10^3/uL (1.0-4.8) Monocytes # (Auto) 0.6 x10^3/uL (0.0-1.1) Eosinophils # (Auto) 0.6 x10^3/uL (0.0-0.7) Basophils # (Auto) 0.1 x10^3/uL (0.0-0.2) Sodium Level 136 mmol/L (136-145) Potassium Level 4.6 mmol/L (3.5-5.1) Chloride Level 107 mmol/L (98-107) Carbon Dioxide Level 20 mmol/L (21-32) Anion Gap 9 (6-14) Blood Urea Nitrogen 14 mg/dL (7-20) Creatinine 0.6 mg/dL (0.6-1.0) Estimated GFR (Cockcroft-Gault) 121.8 Glucose Level 103 mg/dL (70-99) Calcium Level 8.3 mg/dL (8.5-10.1) Phosphorus Level 3.2 mg/dL (2.6-4.7) Magnesium Level 2.1 mg/dL (1.8-2.4) Microbiology 11/28/19 Blood Culture - Preliminary, Resulted NO GROWTH AFTER 1 DAY Medications Current Medications Hydromorphone HCl (Dilaudid) 1 mg PRN Q15MIN PRN IV/SQ PAIN GREATER THAN 3/10 Last administered on 11/28/19at 17:49; Start 11/28/19 at 15:15; Stop 11/29/19 at 12:34; Status DC Piperacillin Sod/ Tazobactam Sod 3.375 gm/Sodium Chloride 50 ml @ 100 mls/hr 1X ONCE IV Last administered on 11/28/19at 15:30; Start 11/28/19 at 15:30; Stop 11/28/19 at 15:59; Status DC Sodium Chloride 1,000 ml @ 1,000 mls/hr 1X ONCE IV Last administered on 11/28/19at 15:38; Start 11/28/19 at 15:15; Stop 11/28/19 at 16:14; Status DC Info (Tpn Per Pharmacy) 1 each PRN DAILY PRN MC SEE COMMENTS Last administered on 11/29/19at 12:47; Start 11/29/19 at 22:00 Linezolid/Dextrose 300 ml @ 300 mls/hr Q12HR IV Last administered on 11/30/19at 09:57; Start 11/28/19 at 18:00 Piperacillin Sod/ Tazobactam Sod 3.375 gm/Sodium Chloride 50 ml @ 100 mls/hr Q6HRS IV Last administered on 11/30/19at 05:07; Start 11/29/19 at 00:00 Potassium Chloride/Dextrose/ Sod Cl 1,000 ml @ 80 mls/hr [id number] IV Last administered on 11/29/19at 07:35; Start 11/28/19 at 16:45; Stop 11/29/19 at 21:59; Status DC Hydromorphone HCl (Dilaudid) 1 mg Q4HRS PRN IV MODERATE PAIN Last administered on 11/30/19at 09:45; Start 11/28/19 at 16:45 Zolpidem Tartrate (Ambien) 5 mg PRN QHS PRN PO INSOMNIA Last administered on 11/29/19at 23:28; Start 11/28/19 at 16:45 Fluconazole/ Sodium Chloride 100 ml @ 100 mls/hr Q24H IV Last administered on 11/28/19at 18:17; Start 11/28/19 at 17:00; Stop 11/29/19 at 09:37; Status DC Lidocaine HCl (Xylocaine 2% Topical 30gm Tube) 1 sang BID TP Last administered on 11/30/19 10:34; Start 11/28/19 at 21:00 Zinc Oxide (Zinc Oxide 20% Topical) 1 sang BID TP Last administered on 11/30/19at 10:34; Start 11/28/19 at 21:00 Vancomycin HCl (Vancomycin Oral Solution) 125 mg [id number] PO Last administered on 11/30/19at 10:34; Start 11/28/19 at 17:00 Acetaminophen (Tylenol) 650 mg Q6HRS PRN PO MILD PAIN / TEMP > 100.3'F; Start 11/28/19 at 16:45 Pantoprazole Sodium (Protonix) 40 mg DAILYAC PO Last administered on 11/29/19at 06:09; Start 11/29/19 at 07:30; Stop 11/29/19 at 11:34; Status DC Sertraline HCl (Zoloft) 50 mg DAILY PO Last administered on 11/30/19at 09:00; Start 11/29/19 at 09:00 Lorazepam (Ativan) 0.5 mg Q6HRS PRN PO ANXIETY / AGITATION; Start 11/28/19 at 16:45 Ondansetron HCl (Zofran) 4 mg Q6HRS PRN IVP NAUSEA/VOMITING Last administered on 11/28/19at 20:18; Start 11/28/19 at 16:45 Diphenhydramine HCl (Benadryl) 25 mg Q6HRS PRN PO ITCHING; Start 11/28/19 at 16:45 Al Hydroxide/Mg Hydroxide (Mylanta Plus Xs) 30 ml PRN Q2HR PRN PO HEARTBURN / GAS Last administered on 11/28/19at 21:31; Start 11/28/19 at 20:45 Hydromorphone HCl (Dilaudid) 2 mg PRN Q4HRS PRN IV SEVERE PAIN Last administered on 11/29/19at 23:42; Start 11/28/19 at 20:45 Fluconazole/ Sodium Chloride 200 ml @ 100 mls/hr Q24H IV Last administered on 11/29/19at 20:02; Start 11/29/19 at 17:00 Magnesium Sulfate 50 ml @ 25 mls/hr 1X ONCE IV Last administered on 11/29/19at 10:30; Start 11/29/19 at 10:30; Stop 11/29/19 at 12:29; Status DC Pantoprazole Sodium (PROTONIX VIAL for IV PUSH) 40 mg DAILYAC IVP Last administered on 11/30/19at 09:45; Start 11/30/19 at 07:30 Sodium Chloride 120 meq/Sodium Acetate 110 meq/ Potassium Chloride 30 meq/ Potassium Phosphate 22 mmol/ Magnesium Sulfate 24 meq/Calcium Gluconate 10 meq/ Multivitamins 10 ml/Chromium/ Copper/Manganese/ Seleni/Zn 1 ml/ Total Parenteral Nutrition/Amino Acids/Dextrose/ Fat Emulsion Intravenous 1,920 ml @ 80 mls/hr TPN CONT IV Last administered on 11/29/19at 18:54; Start 11/29/19 at 22:00; Stop 11/30/19 at 21:59 Active Scripts Active Daptomycin 350 Mg Vial 300 Mg IV DAILY 3 Days Metronidazole 500 Mg Tablet 1 Tab PO Q8HRS 14 Days Dilaudid (Hydromorphone Hcl) 2 Mg Tablet 1 Tab PO Q6HRS PRN MDD 4 Tablet(s) Pantoprazole Sodium (Pantoprazole Sodium) 40 Mg Tablet.dr 40 Mg PO DAILYAC Tylenol (Acetaminophen) 325 Mg Tablet 650 Mg PO PRN Q6HRS PRN [Pantoprazole] 40 MG Tablet.dr 40 Mg PO DAILYAC 30 Days Zinc Oxide 56.7 Gm Oint...g. 1 Sang TP BID Ambien (Zolpidem Tartrate) 5 Mg Tablet 5 Mg PO PRN QHS PRN 30 Days [Tpn Per Pharmacy] 1 EACH Each 1 Each MC PRN DAILY PRN TPN at 85cc/hour Sertraline Hcl 50 Mg Tablet 50 Mg PO DAILY 30 Days Lidocaine 35.44 Gm Oint...g. 1 Sang TP BID Reported Ondansetron Hcl 4 Mg Tablet 4 Mg PO PRN Q6HRS PRN Lorazepam 0.5 Mg Tablet 0.5 Mg PO Q6HRS PRN Vitals/I & O Vital Sign - Last 24 Hours 11/29/19 11/29/19 11/29/19 11/29/19 15:12 15:28 15:42 19:54 Temp 98.8 97.4 98.8 97.4 Pulse 88 88 Resp 16 16 B/P (MAP) 110/64 (79) 116/60 (78) Pulse Ox 94 96 96 100 O2 Delivery Room Air Room Air Room Air Room Air 11/29/19 11/29/19 11/29/19 11/29/19 20:01 20:21 20:33 23:38 Temp 97.5 97.5 Pulse 91 Resp 20 B/P (MAP) 146/86 (106) Pulse Ox 97 O2 Delivery Room Air Room Air Room Air Room Air 11/29/19 11/30/19 11/30/19 11/30/19 23:42 00:17 03:30 04:13 Temp 98.5 98.5 Pulse 104 Resp 20 B/P (MAP) 129/81 (97) Pulse Ox 96 O2 Delivery Room Air Room Air Room Air Room Air 11/30/19 11/30/19 11/30/19 11/30/19 04:48 07:15 08:00 09:45 Temp 98.2 98.2 Pulse 104 Resp 16 B/P (MAP) 114/68 (83) Pulse Ox 99 99 O2 Delivery Room Air Room Air Room Air Room Air 11/30/19 11/30/19 10:46 11:10 Temp 98.6 98.6 Pulse 101 Resp 16 B/P (MAP) 156/90 (112) Pulse Ox 99 100 O2 Delivery Room Air Room Air Intake and Output 11/29/19 11/29/19 11/30/19 15:00 23:00 07:00 Intake Total 100 ml 200 ml 300 ml Output Total 50 ml 40 ml 100 ml Balance 50 ml 160 ml 200 ml BENITA LUTZ MD Nov 30, 2019 12:02
--- NOTE | 2019-11-30 12:42 | PDOC ---
Provider Note Provider Note IR NOTE CT 6.16.20 reviewed. No new abdominal wall abscess amendable to catheter drainage is seen. Small area of sub Q gas lateral to pigtail drain noted. Intraperitoneal, extraluminal gas and fluid collection is somewhat poorly deliniated but appears to be similar. Justicifation of Admission Dx: Justifications for Admission: Justification of Admission Dx: Yes CARRINGTON BURKETT MD Nov 30, 2019 12:42
[2019-11-30] MEDS: TPN PER PHARMACY MC PRN (13:20)
--- NOTE | 2019-11-30 13:29 | NUR ---
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 Height: 5 feet, 4 inches Weight: 38.4 kg Current diet: NPO LABS: Sodium: 136 Potassium: 4.6 Chloride: 107 Calcium: 8.3 Corrected Calcium: 9.74 Magnesium: 2.1 CO2: 20 SCr: 0.7 Glucose: 103 Albumin: 2.2 AST: 14 ALT: 13 TPN FORMULA: TPN TYPE: Central Continuous AMINO ACIDS: 90 gm DEXTROSE: 285 gm LIPIDS: 35 gm SODIUM CHLORIDE: 120 mEq SODIUM ACETATE: 120 mEq SODIUM PHOSPHATE: mmol POTASSIUM CHLORIDE: 30 mEq POTASSIUM ACETATE: 30 mEq POTASSIUM PHOSPHATE: 22 mmol MAGNESIUM: 24 mEq CALCIUM: 10 mEq INSULIN: - units MULTIPLE VITAMIN: 10 ml TRACE ELEMENTS: 1 ml(s) TPN PLAN: increase naacetate to 120 meq, change kcl to kacetate. R: Continue TPN at 80 ml/hr Will monitor electrolytes, glucose, and tolerance to TPN. MARQUEZ FIGUEROA [facility], 11/30/19 [id number]
[2019-11-30 15:00] VITALS: BP 122/73
[2019-11-30] MEDS: FLUCONAZOLE 400MG/200ML PREMIX 200 ML IV SCH (16:56)
[2019-11-30 20:28] VITALS: BP 133/71
[2019-11-30] MEDS ORDERED: DEXTROSE 70% IV SCH ×11 (22:00)
[2019-11-30] MEDS ORDERED: TOTAL PARENTERAL NUTRITION IV SCH ×11 (22:00)
[2019-11-30] MEDS ORDERED: AMINO ACID IV SCH ×11 (22:00)
[2019-11-30] MEDS ORDERED: [UNRECOGNIZED DRUG - OTHER] IV SCH ×11 (22:00)
[2019-11-30 22:20] VITALS: BP 142/87
[2019-12-01] MEDS: PIPERACILLIN/TAZOBACTAM 3.375 GM in IV NORMAL SALINE 50ML 50 ML IV SCH ×4 (00:07→18:21)
[2019-12-01] MEDS: HYDROmorphone 2 MG/ML VIAL IV PRN ×5 (02:41→21:11)
[2019-12-01 03:03] VITALS: BP 134/77
[2019-12-01 07:15] VITALS: BP 117/67
[2019-12-01] MEDS: VANCOMYCIN 125 MG/2.5 ML ORAL SOLUTION. PO SCH ×4 (08:44→21:10)
[2019-12-01] MEDS: PANTOPRAZOLE IV PUSH 40 MG VIAL. IVP SCH (08:45)
[2019-12-01] MEDS: SERTRALINE 50 MG TABLET. PO SCH (08:46)
[2019-12-01] MEDS: ZINC OXIDE 20% TOPICAL OINTMENT 28GM TUBE. TP SCH ×2 (08:52→21:12)
[2019-12-01] MEDS: LIDOCAINE 2% TOPICAL JELLY 30GM TUBE. TP SCH ×2 (08:52→21:12)
--- NOTE | 2019-12-01 09:17 | PDOC ---
Infectious Disease Note Subjective Subjective Better pain control in abdomen but nausea started 10 mins ago No F/C/S/SOA/swallowing problems/rash Vital Sign Vital Signs Vital Signs Date Time Temp Pulse Resp B/P (MAP) Pulse Ox O2 Delivery O2 Flow Rate FiO2 12/01/19 07:44 99 Room Air 12/01/19 07:15 98.3 90 16 117/67 (84) 98.3 Physical Exam PHYSICAL EXAM CONSTITUTIONAL: She is alert. She looks comfortable. She is cachectic. She is in no acute distress. HEENT: Pupils equal and reactive. She has normal conjunctivae. Oral cavity, pharynx is without thrush. NECK: Supple, no JVD. LUNGS: Decreased in the bases. HEART: S1, S2. ABDOMEN: Not distended. She has a chronic excoriations, but healing areas as well. Now has purulent material draining from low mid ant area. She has a drain in the left lower quadrant without drainage today,. STACIE has some thicker type fluid currently. EXTREMITIES: Without clubbing or cyanosis. She has trace edema. SKIN: Warm to touch without signs of rash. NEUROLOGIC: She is nonfocal, moves all extremities. Her right chest IV line is without signs of any complications. Labs Micro IMPRESSION: 1. 4.8 cm complex fluid collection in the periumbilical region which is concerning for an anterior intraperitoneal abscess, but cannot be definitively distinguished from aperistaltic bowel. Further characterization with CT scan of the abdomen and pelvis with oral contrast, and preferably with IV contrast as well if the patient's comorbidities allow, is recommended. Microbiology 11/28/19 Blood Culture - Preliminary, Resulted NO GROWTH AFTER 1 DAY Objective Assessment Fever - better blood cults neg Abd Pain 4.8 ? complex fluid collection - not amenable to drainage per IR 11/29 Drain leakage Vanc allergy Short gut H/o C-diff H/o Abdominal wall abscess Enterocutaneous fistula. Enterovesicular fistula. Malnutrition. H/o Esophagitis. Anemia Chronic TPN H/o Coagulase-negative staph on blood culture,msse status post line change, repeat blood cultures negative Plan Plan of Care Cont Zosyn/Zyvox/Diflucan but increased to 400 mg 11/28/po Vanc Await further surgical eval. F/u labs and cults - Urine ? ABBY MOTT MD Dec 01, 2019 09:17
--- NOTE | 2019-12-01 09:30 | PDOC ---
Subjective: Subjective: Had pain medication so pain is better. Reports "lots" of drainage. Wants to know what the plan is and what recommendations Dr. Ovalle has. Wants me to move her bedside table about 6 inches. Objective: Vital Signs: Vital Signs Date Time Temp Pulse Resp B/P (MAP) Pulse Ox O2 Delivery O2 Flow Rate FiO2 12/01/19 07:44 99 Room Air 12/01/19 07:15 98.3 90 16 117/67 (84) 98.3 Labs: BLOOD CULTURE Preliminary NO GROWTH AFTER 2 DAYS PE: GEN: NAD - breakfast tray with toast and eggs and norris and potatoes LUNGS: CTAB HEART: RRR ABD: chronic fistulae, LLQ drain w/ brownish milky fluid, no drainage around drain site when I saw, tender indurated area above NEURO/PSYCH: A & O 3 A/P: Abd wall abscess s/p drain placement 10/2019 Chronic fistulae w/ suspected chronic/partial obstruction, h/o esophageal candidiasis, h/o C Diff -- Will review any new GI recommendations w/ Dr. Ovalle. Justicifation of Admission Dx: Justifications for Admission: Justification of Admission Dx: Yes MIESHA RICO Dec 01, 2019 09:30
[2019-12-01] MEDS: ONDANSETRON PF 4 MG/2 ML VIAL. IVP PRN (09:51)
--- NOTE | 2019-12-01 10:44 | PDOC ---
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 12/01/19 1044: SURGICAL PROGRESS NOTE Subjective feels weak abdominal pain Vital Signs Vital Signs Date Time Temp Pulse Resp B/P (MAP) Pulse Ox O2 Delivery O2 Flow Rate FiO2 12/01/19 07:44 99 Room Air 12/01/19 07:15 98.3 90 16 117/67 (84) 98.3 I&O Intake and Output 12/01/19 07:00 Intake Total 900 ml Output Total 30 ml Balance 870 ml Intake Oral 500 ml IV Total 400 ml Drainage Total 30 ml # Voids 2 # Bowel Movements 2 General: Alert, Oriented X3, Cooperative Abdomen: Soft, Other (drain with drainage) Labs Laboratory Tests Test 11/30/19 04:25 White Blood Count 8.2 x10^3/uL (4.0-11.0) Red Blood Count 3.34 x10^6/uL (3.50-5.40) Hemoglobin 9.9 g/dL (12.0-15.5) Hematocrit 30.2 % (36.0-47.0) Mean Corpuscular Volume 90 fL (79-100) Mean Corpuscular Hemoglobin 30 pg (25-35) Mean Corpuscular Hemoglobin Concent 33 g/dL (31-37) Red Cell Distribution Width 19.0 % (11.5-14.5) Platelet Count 362 x10^3/uL (140-400) Neutrophils (%) (Auto) 71 % (31-73) Lymphocytes (%) (Auto) 13 % (24-48) Monocytes (%) (Auto) 8 % (0-9) Eosinophils (%) (Auto) 7 % (0-3) Basophils (%) (Auto) 1 % (0-3) Neutrophils # (Auto) 5.8 x10^3/uL (1.8-7.7) Lymphocytes # (Auto) 1.1 x10^3/uL (1.0-4.8) Monocytes # (Auto) 0.6 x10^3/uL (0.0-1.1) Eosinophils # (Auto) 0.6 x10^3/uL (0.0-0.7) Basophils # (Auto) 0.1 x10^3/uL (0.0-0.2) Sodium Level 136 mmol/L (136-145) Potassium Level 4.6 mmol/L (3.5-5.1) Chloride Level 107 mmol/L (98-107) Carbon Dioxide Level 20 mmol/L (21-32) Anion Gap 9 (6-14) Blood Urea Nitrogen 14 mg/dL (7-20) Creatinine 0.6 mg/dL (0.6-1.0) Estimated GFR (Cockcroft-Gault) 121.8 Glucose Level 103 mg/dL (70-99) Calcium Level 8.3 mg/dL (8.5-10.1) Phosphorus Level 3.2 mg/dL (2.6-4.7) Magnesium Level 2.1 mg/dL (1.8-2.4) Problem List Problems Medical Problems: (1) Abdominal wall fistula Status: Acute (2) Intractable abdominal pain Status: Acute Assessment/Plan drain, tpn no surgical plans Justicifation of Admission Dx: Justifications for Admission: Justification of Admission Dx: Yes ANIA PATTON MD 12/01/19 1250: SURGICAL PROGRESS NOTE Assessment/Plan pt seen and examined has drainage from midline and around the drain continue current Rx 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 Dec 01, 2019 10:44 ANIA PATTON MD Dec 01, 2019 12:50
[2019-12-01] MEDS ORDERED: ONDANSETRON PF 4 MG/2 ML VIAL. IVP PRN (11:00)
--- NOTE | 2019-12-01 11:03 | PDOC ---
PROGRESS NOTES Subjective Subjective complains of nausea. has LLQ abdominal tenderness abdominal wall by STACIE drain. Objective Objective Vital Signs Date Time Temp Pulse Resp B/P (MAP) Pulse Ox O2 Delivery O2 Flow Rate FiO2 12/01/19 07:44 99 Room Air 12/01/19 07:15 98.3 90 16 117/67 (84) 98.3 Intake and Output 12/01/19 07:00 Intake Total 900 ml Output Total 30 ml Balance 870 ml Intake Oral 500 ml IV Total 400 ml Drainage Total 30 ml # Voids 2 # Bowel Movements 2 Physical Exam Abdomen: Soft, Other (STACIE drain LLQ. firm tender area next to it abdominal wall) Heart: Regular rate, Normal S1, Normal S2 Extremities: No edema General: Alert HEENT: Atraumatic Lungs: Clear to auscultation Neuro: Normal speech Psych/Mental Status: Mental status NL Skin: No rashes Assessment Assessment Problems. Fever resolved 2. 4.8 cm fluid collection on ultrasound. LLQ abdominal wall firm area with tenderness next to STACIE drain 3. History of chronic abdominal pain due to abdominal adhesions. 4. Severe protein-calorie malnutrition. 5. History of Clostridium difficile colitis within the last year. 6. Enterovesical fistula. 7. Enterocutaneous fistula. indurated area LLQ abominal wall. concern about an abscess critical illness myopathy nausea Medical Problems: (1) Abdominal wall fistula Status: Acute (2) Intractable abdominal pain Status: Acute Plan Plan of Care increase iv zofran prn continue iv zyvox and zosyn and fluconazole continue TPN continue analgesics Comment Review of Relevant I have reviewed the following items lucila (where applicable) has been applied. Labs Laboratory Tests Test 11/30/19 04:25 White Blood Count 8.2 x10^3/uL (4.0-11.0) Red Blood Count 3.34 x10^6/uL (3.50-5.40) Hemoglobin 9.9 g/dL (12.0-15.5) Hematocrit 30.2 % (36.0-47.0) Mean Corpuscular Volume 90 fL (79-100) Mean Corpuscular Hemoglobin 30 pg (25-35) Mean Corpuscular Hemoglobin Concent 33 g/dL (31-37) Red Cell Distribution Width 19.0 % (11.5-14.5) Platelet Count 362 x10^3/uL (140-400) Neutrophils (%) (Auto) 71 % (31-73) Lymphocytes (%) (Auto) 13 % (24-48) Monocytes (%) (Auto) 8 % (0-9) Eosinophils (%) (Auto) 7 % (0-3) Basophils (%) (Auto) 1 % (0-3) Neutrophils # (Auto) 5.8 x10^3/uL (1.8-7.7) Lymphocytes # (Auto) 1.1 x10^3/uL (1.0-4.8) Monocytes # (Auto) 0.6 x10^3/uL (0.0-1.1) Eosinophils # (Auto) 0.6 x10^3/uL (0.0-0.7) Basophils # (Auto) 0.1 x10^3/uL (0.0-0.2) Sodium Level 136 mmol/L (136-145) Potassium Level 4.6 mmol/L (3.5-5.1) Chloride Level 107 mmol/L (98-107) Carbon Dioxide Level 20 mmol/L (21-32) Anion Gap 9 (6-14) Blood Urea Nitrogen 14 mg/dL (7-20) Creatinine 0.6 mg/dL (0.6-1.0) Estimated GFR (Cockcroft-Gault) 121.8 Glucose Level 103 mg/dL (70-99) Calcium Level 8.3 mg/dL (8.5-10.1) Phosphorus Level 3.2 mg/dL (2.6-4.7) Magnesium Level 2.1 mg/dL (1.8-2.4) Microbiology 11/28/19 Blood Culture - Preliminary, Resulted NO GROWTH AFTER 2 DAYS Medications Current Medications Hydromorphone HCl (Dilaudid) 1 mg PRN Q15MIN PRN IV/SQ PAIN GREATER THAN 3/10 Last administered on 11/28/19at 17:49; Start 11/28/19 at 15:15; Stop 11/29/19 at 12:34; Status DC Piperacillin Sod/ Tazobactam Sod 3.375 gm/Sodium Chloride 50 ml @ 100 mls/hr 1X ONCE IV Last administered on 11/28/19at 15:30; Start 11/28/19 at 15:30; Stop 11/28/19 at 15:59; Status DC Sodium Chloride 1,000 ml @ 1,000 mls/hr 1X ONCE IV Last administered on 11/28/19at 15:38; Start 11/28/19 at 15:15; Stop 11/28/19 at 16:14; Status DC Info (Tpn Per Pharmacy) 1 each PRN DAILY PRN MC SEE COMMENTS Last administered on 11/30/19at 13:20; Start 11/29/19 at 22:00 Linezolid/Dextrose 300 ml @ 300 mls/hr Q12HR IV Last administered on 12/01/19at 08:44; Start 11/28/19 at 18:00 Piperacillin Sod/ Tazobactam Sod 3.375 gm/Sodium Chloride 50 ml @ 100 mls/hr Q6HRS IV Last administered on 12/01/19at 05:53; Start 11/29/19 at 00:00 Potassium Chloride/Dextrose/ Sod Cl 1,000 ml @ 80 mls/hr [id number] IV Last administered on 11/29/19at 07:35; Start 11/28/19 at 16:45; Stop 11/29/19 at 21:59; Status DC Hydromorphone HCl (Dilaudid) 1 mg Q4HRS PRN IV MODERATE PAIN Last administered on 12/01/19at 07:13; Start 11/28/19 at 16:45 Zolpidem Tartrate (Ambien) 5 mg PRN QHS PRN PO INSOMNIA Last administered on 11/29/19at 23:28; Start 11/28/19 at 16:45 Fluconazole/ Sodium Chloride 100 ml @ 100 mls/hr Q24H IV Last administered on 11/28/19at 18:17; Start 11/28/19 at 17:00; Stop 11/29/19 at 09:37; Status DC Lidocaine HCl (Xylocaine 2% Topical 30gm Tube) 1 sang BID TP Last administered on 12/01/19at 08:52; Start 11/28/19 at 21:00 Zinc Oxide (Zinc Oxide 20% Topical) 1 sang BID TP Last administered on 12/01/19at 08:52; Start 11/28/19 at 21:00 Vancomycin HCl (Vancomycin Oral Solution) 125 mg [id number] PO Last administered on 12/01/19at 08:44; Start 11/28/19 at 17:00 Acetaminophen (Tylenol) 650 mg Q6HRS PRN PO MILD PAIN / TEMP > 100.3'F; Start 11/28/19 at 16:45 Pantoprazole Sodium (Protonix) 40 mg DAILYAC PO Last administered on 11/29/19at 06:09; Start 11/29/19 at 07:30; Stop 11/29/19 at 11:34; Status DC Sertraline HCl (Zoloft) 50 mg DAILY PO Last administered on 12/01/19at 08:46; Start 11/29/19 at 09:00 Lorazepam (Ativan) 0.5 mg Q6HRS PRN PO ANXIETY / AGITATION; Start 11/28/19 at 16:45 Ondansetron HCl (Zofran) 4 mg Q6HRS PRN IVP NAUSEA/VOMITING Last administered on 12/01/19at 09:51; Start 11/28/19 at 16:45 Diphenhydramine HCl (Benadryl) 25 mg Q6HRS PRN PO ITCHING; Start 11/28/19 at 16:45 Al Hydroxide/Mg Hydroxide (Mylanta Plus Xs) 30 ml PRN Q2HR PRN PO HEARTBURN / GAS Last administered on 11/28/19at 21:31; Start 11/28/19 at 20:45 Hydromorphone HCl (Dilaudid) 2 mg PRN Q4HRS PRN IV SEVERE PAIN Last administered on 11/30/19at 17:53; Start 11/28/19 at 20:45 Fluconazole/ Sodium Chloride 200 ml @ 100 mls/hr Q24H IV Last administered on 11/30/19at 16:56; Start 11/29/19 at 17:00 Magnesium Sulfate 50 ml @ 25 mls/hr 1X ONCE IV Last administered on 11/29/19at 10:30; Start 11/29/19 at 10:30; Stop 11/29/19 at 12:29; Status DC Pantoprazole Sodium (PROTONIX VIAL for IV PUSH) 40 mg DAILYAC IVP Last administered on 12/01/19at 08:45; Start 11/30/19 at 07:30 Sodium Chloride 120 meq/Sodium Acetate 110 meq/ Potassium Chloride 30 meq/ Potassium Phosphate 22 mmol/ Magnesium Sulfate 24 meq/Calcium Gluconate 10 meq/ Multivitamins 10 ml/Chromium/ Copper/Manganese/ Seleni/Zn 1 ml/ Total Parenteral Nutrition/Amino Acids/Dextrose/ Fat Emulsion Intravenous 1,920 ml @ 80 mls/hr TPN CONT IV Last administered on 11/29/19at 18:54; Start 11/29/19 at 22:00; Stop 11/30/19 at 21:59; Status DC Sodium Chloride 120 meq/Sodium Acetate 120 meq/ Potassium Acetate 30 meq/Potassium Phosphate 22 mmol/ Magnesium Sulfate 24 meq/Calcium Gluconate 10 meq/ Multivitamins 10 ml/Chromium/ Copper/Manganese/ Seleni/Zn 1 ml/ Total Parenteral Nutrition/Amino Acids/Dextrose/ Fat Emulsion Intravenous 1,920 ml @ 80 mls/hr TPN CONT IV Last administered on 11/30/19at 20:51; Start 11/30/19 at 22:00; Stop 12/01/19 at 21:59 Active Scripts Active Daptomycin 350 Mg Vial 300 Mg IV DAILY 3 Days Metronidazole 500 Mg Tablet 1 Tab PO Q8HRS 14 Days Dilaudid (Hydromorphone Hcl) 2 Mg Tablet 1 Tab PO Q6HRS PRN MDD 4 Tablet(s) Pantoprazole Sodium (Pantoprazole Sodium) 40 Mg Tablet.dr 40 Mg PO DAILYAC Tylenol (Acetaminophen) 325 Mg Tablet 650 Mg PO PRN Q6HRS PRN [Pantoprazole] 40 MG Tablet.dr 40 Mg PO DAILYAC 30 Days Zinc Oxide 56.7 Gm Oint...g. 1 Sang TP BID Ambien (Zolpidem Tartrate) 5 Mg Tablet 5 Mg PO PRN QHS PRN 30 Days [Tpn Per Pharmacy] 1 EACH Each 1 Each PRN DAILY PRN TPN at 85cc/hour Sertraline Hcl 50 Mg Tablet 50 Mg PO DAILY 30 Days Lidocaine 35.44 Gm Oint...g. 1 Sang TP BID Reported Ondansetron Hcl 4 Mg Tablet 4 Mg PO PRN Q6HRS PRN Lorazepam 0.5 Mg Tablet 0.5 Mg PO Q6HRS PRN Vitals/I & O Vital Sign - Last 24 Hours 11/30/19 11/30/19 11/30/19 11/30/19 11:10 13:50 15:00 15:29 Temp 98.6 98.4 98.6 98.4 Pulse 101 92 Resp 16 16 B/P (MAP) 156/90 (112) 122/73 (89) Pulse Ox 100 100 98 100 O2 Delivery Room Air Room Air Room Air Room Air 11/30/19 11/30/19 11/30/19 11/30/19 17:53 18:47 20:00 20:28 Temp 98.1 98.1 Pulse 79 Resp 20 B/P (MAP) 133/71 (91) Pulse Ox 100 100 99 O2 Delivery Room Air Room Air Room Air Room Air 11/30/19 11/30/19 12/01/19 12/01/19 22:11 22:20 02:41 03:03 Temp 97.9 98.4 97.9 98.4 Pulse 88 89 Resp 20 16 B/P (MAP) 142/87 (105) 134/77 (96) Pulse Ox 99 100 100 99 O2 Delivery Room Air Room Air Room Air Room Air 12/01/19 12/01/19 12/01/19 07:13 07:15 07:44 Temp 98.3 98.3 Pulse 90 Resp 16 B/P (MAP) 117/67 (84) Pulse Ox 99 99 99 O2 Delivery Room Air Room Air Room Air Intake and Output 11/30/19 11/30/19 12/01/19 15:00 23:00 07:00 Intake Total 300 ml 300 ml 300 ml Output Total 30 ml Balance 300 ml 300 ml 270 ml Nutrition Consultation Dietary Evaluation: Recommendations by RD: Dietary education by RD, PPN/TPN Comments: continue with home TPN and diet as tolerated Expected Outcomes/Goals: to meet >75% est nutr needs Malnutrition Findings: Muscle Mass (Severe): Severe Depletion Body Fat Depletion (Non Severe: Mod to Severe Weight Status: Underweight BENITA LUTZ MD Dec 01, 2019 11:03
[2019-12-01 11:15] VITALS: BP 133/75
[2019-12-01] MEDS: TPN PER PHARMACY MC PRN (12:55)
--- NOTE | 2019-12-01 12:57 | NUR ---
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 Continue same TPN, R: Continue TPN Will monitor electrolytes, glucose, and tolerance to TPN. Bharath Brown [facility], 12/01/19 1257
[2019-12-01 15:00] VITALS: BP 140/77
--- NOTE | 2019-12-01 15:03 | NUR ---
SW following. Spoke with RN and reviewed chart. Pt not ready for discharge per Dr. Cisneros. Pt will discharge home when stable with continued HH from [facility] and TPN from [facility]. Pt remains on IV abx. CLARICE called and spoke with pt's pharmacist Shashi from [facility] who stated they can do IV abx in the home but pt will have a co-pay. Pt has been doing daily out-patient IV abx treatments at [facility] prior to this admission to avoid co-pays per Shashi. SW to continue following.
--- NOTE | 2019-12-01 16:14 | NUR ---
Gave administered hydromophone 1mg IV, scanned the vial and dropped in the sharps container. Then realized it didn't draft roller picker the barcode.
[2019-12-01] MEDS: FLUCONAZOLE 400MG/200ML PREMIX 200 ML IV SCH (17:07)
[2019-12-01 19:47] VITALS: BP 121/69
[2019-12-01] MEDS ORDERED: DEXTROSE 70% IV SCH ×11 (22:00)
[2019-12-01] MEDS ORDERED: AMINO ACID IV SCH ×11 (22:00)
[2019-12-01] MEDS ORDERED: [UNRECOGNIZED DRUG - OTHER] IV SCH ×11 (22:00)
[2019-12-01] MEDS ORDERED: TOTAL PARENTERAL NUTRITION IV SCH ×11 (22:00)
[2019-12-01 23:04] VITALS: BP 148/75
[2019-12-02] MEDS: PIPERACILLIN/TAZOBACTAM 3.375 GM in IV NORMAL SALINE 50ML 50 ML IV SCH ×4 (01:00→18:03)
[2019-12-02] MEDS: HYDROmorphone 2 MG/ML VIAL IV PRN ×5 (01:22→21:34)
[2019-12-02 03:29] VITALS: BP 133/73
[2019-12-02 07:15] VITALS: BP 113/60
[2019-12-02 07:38] LABS: BASO # 0.1 x10^3/uL (0.0-0.2); BASO % 1 % (0-3); EOS # 0.7 x10^3/uL (0.0-0.7); EOS % 10 % (0-3); HEMATOCRIT 28.1 % (36.0-47.0); HEMOGLOBIN 9.3 g/dL (12.0-15.5); LYMPH # 1.1 x10^3/uL (1.0-4.8); LYMPH % 16 % (24-48); MEAN CORPUSCULAR HEMOGLOBIN 30 pg (25-35); MEAN CORPUSCULAR HGB CONC 33 g/dL (31-37); MEAN CORPUSCULAR VOLUME 90 fL (79-100); MONO # 0.4 x10^3/uL (0.0-1.1); MONO % 6 % (0-9); NEUT # 4.7 x10^3/uL (1.8-7.7); NEUT % 66 % (31-73); PLATELET COUNT 392 x10^3/uL (140-400); RED BLOOD COUNT 3.13 x10^6/uL (3.50-5.40); RED CELL DISTRIBUTION WIDTH 18.3 % (11.5-14.5); WHITE BLOOD COUNT 7.1 x10^3/uL (4.0-11.0)
[2019-12-02 07:50] LABS: CALCIUM 7.9 mg/dL (8.5-10.1); CREATININE 0.6 mg/dL (0.6-1.0); GFR 121.8; POTASSIUM 4.4 mmol/L (3.5-5.1)
[2019-12-02] MEDS: SERTRALINE 50 MG TABLET. PO SCH (09:10)
[2019-12-02] MEDS: LIDOCAINE 2% TOPICAL JELLY 30GM TUBE. TP SCH ×2 (09:10→21:34)
[2019-12-02] MEDS: VANCOMYCIN 125 MG/2.5 ML ORAL SOLUTION. PO SCH ×4 (09:10→21:33)
[2019-12-02] MEDS: PANTOPRAZOLE IV PUSH 40 MG VIAL. IVP SCH (09:10)
[2019-12-02] MEDS: ZINC OXIDE 20% TOPICAL OINTMENT 28GM TUBE. TP SCH ×2 (09:10→21:34)
--- NOTE | 2019-12-02 10:37 | PDOC ---
PROGRESS NOTES Subjective Subjective feels better. sitting on commode. less pain. smiling. lab reviewed. Objective Objective Vital Signs Date Time Temp Pulse Resp B/P (MAP) Pulse Ox O2 Delivery O2 Flow Rate FiO2 12/02/19 08:00 Room Air 12/02/19 07:15 97.4 68 16 113/60 (77) 98 97.4 Intake and Output 12/02/19 07:00 Output Total 40 ml Balance -40 ml Drainage Total 40 ml # Voids 3 # Bowel Movements 2 Physical Exam Abdomen: Soft, Other (EC fistula and LLQ STACIE drain and induratrion LLQ with tenderness. some yellow drainage next to STACIE drain and drainge in STACIE drain) Heart: Regular rate, Normal S1, Normal S2 Extremities: No edema General: Alert HEENT: Atraumatic Lungs: Clear to auscultation Neuro: Normal speech Psych/Mental Status: Mental status NL Skin: No rashes Assessment Assessment ProblemsFever resolved 2. 4.8 cm fluid collection on ultrasound. LLQ abdominal wall firm area with tenderness next to STACIE drain 3. History of chronic abdominal pain due to abdominal adhesions. 4. Severe protein-calorie malnutrition. 5. History of Clostridium difficile colitis within the last year. 6. Enterovesical fistula. 7. Enterocutaneous fistula. indurated area LLQ abominal wall. concern about an abscess critical illness myopathy nausea better Medical Problems: (1) Abdominal wall fistula Status: Acute (2) Intractable abdominal pain Status: Acute Plan Plan of Care continue iv zyvox and zosyn and fluconazole and oral vancomycin continue TPN continue prn iv dilaudid continue prn iv zofran Comment Review of Relevant I have reviewed the following items lucila (where applicable) has been applied. Labs Laboratory Tests Test 12/02/19 06:55 White Blood Count 7.1 x10^3/uL (4.0-11.0) Red Blood Count 3.13 x10^6/uL (3.50-5.40) Hemoglobin 9.3 g/dL (12.0-15.5) Hematocrit 28.1 % (36.0-47.0) Mean Corpuscular Volume 90 fL (79-100) Mean Corpuscular Hemoglobin 30 pg (25-35) Mean Corpuscular Hemoglobin Concent 33 g/dL (31-37) Red Cell Distribution Width 18.3 % (11.5-14.5) Platelet Count 392 x10^3/uL (140-400) Neutrophils (%) (Auto) 66 % (31-73) Lymphocytes (%) (Auto) 16 % (24-48) Monocytes (%) (Auto) 6 % (0-9) Eosinophils (%) (Auto) 10 % (0-3) Basophils (%) (Auto) 1 % (0-3) Neutrophils # (Auto) 4.7 x10^3/uL (1.8-7.7) Lymphocytes # (Auto) 1.1 x10^3/uL (1.0-4.8) Monocytes # (Auto) 0.4 x10^3/uL (0.0-1.1) Eosinophils # (Auto) 0.7 x10^3/uL (0.0-0.7) Basophils # (Auto) 0.1 x10^3/uL (0.0-0.2) Sodium Level 142 mmol/L (136-145) Potassium Level 4.4 mmol/L (3.5-5.1) Chloride Level 107 mmol/L (98-107) Carbon Dioxide Level 31 mmol/L (21-32) Anion Gap 4 (6-14) Blood Urea Nitrogen 17 mg/dL (7-20) Creatinine 0.6 mg/dL (0.6-1.0) Estimated GFR (Cockcroft-Gault) 121.8 Glucose Level 93 mg/dL (70-99) Calcium Level 7.9 mg/dL (8.5-10.1) Magnesium Level 2.0 mg/dL (1.8-2.4) Laboratory Tests Test 12/02/19 06:55 White Blood Count 7.1 x10^3/uL (4.0-11.0) Red Blood Count 3.13 x10^6/uL (3.50-5.40) Hemoglobin 9.3 g/dL (12.0-15.5) Hematocrit 28.1 % (36.0-47.0) Mean Corpuscular Volume 90 fL (79-100) Mean Corpuscular Hemoglobin 30 pg (25-35) Mean Corpuscular Hemoglobin Concent 33 g/dL (31-37) Red Cell Distribution Width 18.3 % (11.5-14.5) Platelet Count 392 x10^3/uL (140-400) Neutrophils (%) (Auto) 66 % (31-73) Lymphocytes (%) (Auto) 16 % (24-48) Monocytes (%) (Auto) 6 % (0-9) Eosinophils (%) (Auto) 10 % (0-3) Basophils (%) (Auto) 1 % (0-3) Neutrophils # (Auto) 4.7 x10^3/uL (1.8-7.7) Lymphocytes # (Auto) 1.1 x10^3/uL (1.0-4.8) Monocytes # (Auto) 0.4 x10^3/uL (0.0-1.1) Eosinophils # (Auto) 0.7 x10^3/uL (0.0-0.7) Basophils # (Auto) 0.1 x10^3/uL (0.0-0.2) Sodium Level 142 mmol/L (136-145) Potassium Level 4.4 mmol/L (3.5-5.1) Chloride Level 107 mmol/L (98-107) Carbon Dioxide Level 31 mmol/L (21-32) Anion Gap 4 (6-14) Blood Urea Nitrogen 17 mg/dL (7-20) Creatinine 0.6 mg/dL (0.6-1.0) Estimated GFR (Cockcroft-Gault) 121.8 Glucose Level 93 mg/dL (70-99) Calcium Level 7.9 mg/dL (8.5-10.1) Magnesium Level 2.0 mg/dL (1.8-2.4) Microbiology 11/28/19 Blood Culture - Preliminary, Resulted NO GROWTH AFTER 3 DAYS Medications Current Medications Hydromorphone HCl (Dilaudid) 1 mg PRN Q15MIN PRN IV/SQ PAIN GREATER THAN 3/10 Last administered on 11/28/19at 17:49; Start 11/28/19 at 15:15; Stop 11/29/19 at 12:34; Status DC Piperacillin Sod/ Tazobactam Sod 3.375 gm/Sodium Chloride 50 ml @ 100 mls/hr 1X ONCE IV Last administered on 11/28/19at 15:30; Start 11/28/19 at 15:30; Stop 11/28/19 at 15:59; Status DC Sodium Chloride 1,000 ml @ 1,000 mls/hr 1X ONCE IV Last administered on 11/28/19at 15:38; Start 11/28/19 at 15:15; Stop 11/28/19 at 16:14; Status DC Info (Tpn Per Pharmacy) 1 each PRN DAILY PRN MC SEE COMMENTS Last administered on 12/01/19at 12:55; Start 11/29/19 at 22:00 Linezolid/Dextrose 300 ml @ 300 mls/hr Q12HR IV Last administered on 12/02/19at 09:10; Start 11/28/19 at 18:00 Piperacillin Sod/ Tazobactam Sod 3.375 gm/Sodium Chloride 50 ml @ 100 mls/hr Q6HRS IV Last administered on 12/02/19at 05:52; Start 11/29/19 at 00:00 Potassium Chloride/Dextrose/ Sod Cl 1,000 ml @ 80 mls/hr [id number] IV Last administered on 11/29/19at 07:35; Start 11/28/19 at 16:45; Stop 11/29/19 at 21:59; Status DC Hydromorphone HCl (Dilaudid) 1 mg Q4HRS PRN IV MODERATE PAIN Last administered on 12/01/19at 16:13; Start 11/28/19 at 16:45 Zolpidem Tartrate (Ambien) 5 mg PRN QHS PRN PO INSOMNIA Last administered on 11/29/19at 23:28; Start 11/28/19 at 16:45 Fluconazole/ Sodium Chloride 100 ml @ 100 mls/hr Q24H IV Last administered on 11/28/19at 18:17; Start 11/28/19 at 17:00; Stop 11/29/19 at 09:37; Status DC Lidocaine HCl (Xylocaine 2% Topical 30gm Tube) 1 sang BID TP Last administered on 12/02/19 09:10; Start 11/28/19 at 21:00 Zinc Oxide (Zinc Oxide 20% Topical) 1 sang BID TP Last administered on 12/02/19 09:10; Start 11/28/19 at 21:00 Vancomycin HCl (Vancomycin Oral Solution) 125 mg [id number] PO Last administered on 12/02/19at 09:10; Start 11/28/19 at 17:00 Acetaminophen (Tylenol) 650 mg Q6HRS PRN PO MILD PAIN / TEMP > 100.3'F; Start 11/28/19 at 16:45 Pantoprazole Sodium (Protonix) 40 mg DAILYAC PO Last administered on 11/29/19at 06:09; Start 11/29/19 at 07:30; Stop 11/29/19 at 11:34; Status DC Sertraline HCl (Zoloft) 50 mg DAILY PO Last administered on 12/02/19at 09:10; Start 11/29/19 at 09:00 Lorazepam (Ativan) 0.5 mg Q6HRS PRN PO ANXIETY / AGITATION; Start 11/28/19 at 16:45 Ondansetron HCl (Zofran) 4 mg Q6HRS PRN IVP NAUSEA/VOMITING Last administered on 12/01/19at 09:51; Start 11/28/19 at 16:45; Stop 12/01/19 at 11:00; Status DC Diphenhydramine HCl (Benadryl) 25 mg Q6HRS PRN PO ITCHING; Start 11/28/19 at 16:45 Al Hydroxide/Mg Hydroxide (Mylanta Plus Xs) 30 ml PRN Q2HR PRN PO HEARTBURN / GAS Last administered on 11/28/19at 21:31; Start 11/28/19 at 20:45 Hydromorphone HCl (Dilaudid) 2 mg PRN Q4HRS PRN IV SEVERE PAIN Last administered on 12/02/19at 05:51; Start 11/28/19 at 20:45 Fluconazole/ Sodium Chloride 200 ml @ 100 mls/hr Q24H IV Last administered on 12/01/19at 17:07; Start 11/29/19 at 17:00 Magnesium Sulfate 50 ml @ 25 mls/hr 1X ONCE IV Last administered on 11/29/19at 10:30; Start 11/29/19 at 10:30; Stop 11/29/19 at 12:29; Status DC Pantoprazole Sodium (PROTONIX VIAL for IV PUSH) 40 mg DAILYAC IVP Last administered on 12/02/19at 09:10; Start 11/30/19 at 07:30 Sodium Chloride 120 meq/Sodium Acetate 110 meq/ Potassium Chloride 30 meq/ Potassium Phosphate 22 mmol/ Magnesium Sulfate 24 meq/Calcium Gluconate 10 meq/ Multivitamins 10 ml/Chromium/ Copper/Manganese/ Seleni/Zn 1 ml/ Total Parenteral Nutrition/Amino Acids/Dextrose/ Fat Emulsion Intravenous 1,920 ml @ 80 mls/hr TPN CONT IV Last administered on 11/29/19at 18:54; Start 11/29/19 at 22:00; Stop 11/30/19 at 21:59; Status DC Sodium Chloride 120 meq/Sodium Acetate 120 meq/ Potassium Acetate 30 meq/Pot assium Phosphate 22 mmol/ Magnesium Sulfate 24 meq/Calcium Gluconate 10 meq/ Multivitamins 10 ml/Chromium/ Copper/Manganese/ Seleni/Zn 1 ml/ Total Parenteral Nutrition/Amino Acids/Dextrose/ Fat Emulsion Intravenous 1,920 ml @ 80 mls/hr TPN CONT IV Last administered on 11/30/19at 20:51; Start 11/30/19 at 22:00; Stop 12/01/19 at 21:59; Status DC Ondansetron HCl (Zofran) 8 mg Q6HRS PRN IVP NAUSEA/VOMITING; Start 12/01/19 at 11:00 Sodium Chloride 120 meq/Sodium Acetate 120 meq/ Potassium Acetate 30 meq/Pota ssium Phosphate 22 mmol/ Magnesium Sulfate 24 meq/Calcium Gluconate 10 meq/ Multivitamins 10 ml/Chromium/ Copper/Manganese/ Seleni/Zn 1 ml/ Total Parenteral Nutrition/Amino Acids/Dextrose/ Fat Emulsion Intravenous 1,920 ml @ 80 mls/hr TPN CONT IV Last administered on 12/01/19at 21:11; Start 12/01/19 at 22:00; Stop 12/02/19 at 21:59 Active Scripts Active Daptomycin 350 Mg Vial 300 Mg IV DAILY 3 Days Metronidazole 500 Mg Tablet 1 Tab PO Q8HRS 14 Days Dilaudid (Hydromorphone Hcl) 2 Mg Tablet 1 Tab PO Q6HRS PRN MDD 4 Tablet(s) Pantoprazole Sodium (Pantoprazole Sodium) 40 Mg Tablet.dr 40 Mg PO DAILYAC Tylenol (Acetaminophen) 325 Mg Tablet 650 Mg PO PRN Q6HRS PRN [Pantoprazole] 40 MG Tablet.dr 40 Mg PO DAILYAC 30 Days Zinc Oxide 56.7 Gm Oint...g. 1 Sang TP BID Ambien (Zolpidem Tartrate) 5 Mg Tablet 5 Mg PO PRN QHS PRN 30 Days [Tpn Per Pharmacy] 1 EACH Each 1 Each PRN DAILY PRN TPN at 85cc/hour Sertraline Hcl 50 Mg Tablet 50 Mg PO DAILY 30 Days Lidocaine 35.44 Gm Oint...g. 1 Sang TP BID Reported Ondansetron Hcl 4 Mg Tablet 4 Mg PO PRN Q6HRS PRN Lorazepam 0.5 Mg Tablet 0.5 Mg PO Q6HRS PRN Vitals/I & O Vital Sign - Last 24 Hours 12/01/19 12/01/19 12/01/19 12/01/19 11:15 11:47 12:27 15:00 Temp 98.2 98.0 98.2 98.0 Pulse 92 80 Resp 16 16 B/P (MAP) 133/75 (94) 140/77 (98) Pulse Ox 100 100 100 98 O2 Delivery Room Air Room Air Room Air Room Air 12/01/19 12/01/19 12/01/19 12/01/19 16:13 17:07 19:47 20:00 Temp 98.1 98.1 Pulse 75 Resp 20 B/P (MAP) 121/69 (86) Pulse Ox 98 98 99 O2 Delivery Room Air Room Air Room Air Room Air 12/01/19 12/01/19 12/02/19 12/02/19 21:11 23:04 03:29 07:15 Temp 98.2 97.5 97.4 98.2 97.5 97.4 Pulse 71 72 68 Resp 20 18 16 B/P (MAP) 148/75 (99) 133/73 (93) 113/60 (77) Pulse Ox 99 98 97 98 O2 Delivery Room Air Room Air Room Air Room Air 12/02/19 08:00 O2 Delivery Room Air Intake and Output 12/01/19 12/01/19 12/02/19 15:00 23:00 07:00 Output Total 40 ml Balance -40 ml Nutrition Consultation Dietary Evaluation: Recommendations by RD: Dietary education by RD, PPN/TPN Comments: continue with home TPN and diet as tolerated Expected Outcomes/Goals: to meet >75% est nutr needs Malnutrition Findings: Muscle Mass (Severe): Severe Depletion Body Fat Depletion (Non Severe: Mod to Severe Weight Status: Underweight BENITA LUTZ MD Dec 02, 2019 10:37
--- NOTE | 2019-12-02 11:26 | PDOC ---
Infectious Disease Note Subjective Subjective Less pain No F/C/S/SOA/swallowing problems/rash/N/V ROS ROS as mentioned above Vital Sign Vital Signs Vital Signs Date Time Temp Pulse Resp B/P (MAP) Pulse Ox O2 Delivery O2 Flow Rate FiO2 12/02/19 08:00 Room Air 12/02/19 07:15 97.4 68 16 113/60 (77) 98 97.4 Physical Exam PHYSICAL EXAM GENERAL: Propped up in bed, alert, knitting HEENT: Pupils equal and reactive. She has normal conjunctivae. Oral cavity, pharynx is without thrush. NECK: Supple, no JVD. LUNGS: Decreased in the bases. HEART: S1, S2. ABDOMEN: Cronic excoriations, but healing areas as well. Fullness/swelling left side of abdomen extending down to the left groin/hip area Purulent material draining from low mid ant area, STACIE drain in the left lower quadrant. EXTREMITIES: Without clubbing or cyanosis. She has trace edema. SKIN: Warm to touch without signs of rash. NEUROLOGIC: She is nonfocal, moves all extremities. Right sided CVC line clean Labs Lab Laboratory Tests Test 12/02/19 06:55 White Blood Count 7.1 x10^3/uL (4.0-11.0) Red Blood Count 3.13 x10^6/uL (3.50-5.40) Hemoglobin 9.3 g/dL (12.0-15.5) Hematocrit 28.1 % (36.0-47.0) Mean Corpuscular Volume 90 fL (79-100) Mean Corpuscular Hemoglobin 30 pg (25-35) Mean Corpuscular Hemoglobin Concent 33 g/dL (31-37) Red Cell Distribution Width 18.3 % (11.5-14.5) Platelet Count 392 x10^3/uL (140-400) Neutrophils (%) (Auto) 66 % (31-73) Lymphocytes (%) (Auto) 16 % (24-48) Monocytes (%) (Auto) 6 % (0-9) Eosinophils (%) (Auto) 10 % (0-3) Basophils (%) (Auto) 1 % (0-3) Neutrophils # (Auto) 4.7 x10^3/uL (1.8-7.7) Lymphocytes # (Auto) 1.1 x10^3/uL (1.0-4.8) Monocytes # (Auto) 0.4 x10^3/uL (0.0-1.1) Eosinophils # (Auto) 0.7 x10^3/uL (0.0-0.7) Basophils # (Auto) 0.1 x10^3/uL (0.0-0.2) Sodium Level 142 mmol/L (136-145) Potassium Level 4.4 mmol/L (3.5-5.1) Chloride Level 107 mmol/L (98-107) Carbon Dioxide Level 31 mmol/L (21-32) Anion Gap 4 (6-14) Blood Urea Nitrogen 17 mg/dL (7-20) Creatinine 0.6 mg/dL (0.6-1.0) Estimated GFR (Cockcroft-Gault) 121.8 Glucose Level 93 mg/dL (70-99) Calcium Level 7.9 mg/dL (8.5-10.1) Magnesium Level 2.0 mg/dL (1.8-2.4) Micro Microbiology 11/28/19 Blood Culture - Preliminary, Resulted NO GROWTH AFTER 3 DAYS Objective Assessment Fever - better blood cults neg Abd Pain 4.8 ? complex fluid collection - not amenable to drainage per IR 11/29 Drain leakage Vanc allergy Short gut H/o C-diff H/o Abdominal wall abscess Enterocutaneous fistula. Enterovesicular fistula. Malnutrition. H/o Esophagitis. Anemia Chronic TPN H/o Coagulase-negative staph on blood culture,msse status post line change, repeat blood cultures negative Plan Plan of Care Cont Zosyn/Zyvox/Diflucan/po Vanc General surgery following F/u labs and cults Pain management per primary Supportive care D/w nursing Attending Co-Sign The patient was seen and interviewed as well as examined at the bedside. The chart was reviewed. The case was discussed. Agree with the plan of care. MARICARMEN COLEMAN APRN Dec 02, 2019 11:26 JOSSY TATUM MD Dec 02, 2019 12:12
[2019-12-02 11:32] VITALS: BP 135/64
[2019-12-02] MEDS: TPN PER PHARMACY MC PRN (12:50)
--- NOTE | 2019-12-02 12:54 | NUR ---
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 Current diet: REGULAR LABS: Sodium: 142 Potassium: 4.4 Chloride: 107 Calcium: 7.9 Corrected Calcium: 9.34 Magnesium: 2.0 CO2: 31 SCr: 0.6 Glucose: 93 Albumin: 2.2 AST: 14 ALT: 13 TPN FORMULA: TPN TYPE: Central Continuous AMINO ACIDS: 90 gm DEXTROSE: 285 gm LIPIDS: 35 gm SODIUM CHLORIDE: 120 mEq SODIUM ACETATE: 120 mEq SODIUM PHOSPHATE: - mmol POTASSIUM CHLORIDE: - mEq POTASSIUM ACETATE: 30 mEq POTASSIUM PHOSPHATE: 22 mmol MAGNESIUM: 24 mEq CALCIUM: 10 mEq INSULIN: - units MULTIPLE VITAMIN: 10 ml TRACE ELEMENTS: 1 ml(s) TPN PLAN: 12/01 LYTES STABLE, Continue same TPN, R: Continue TPN Will monitor electrolytes, glucose, and tolerance to TPN. [facility], 12/02/19 [id number]
[2019-12-02 15:30] VITALS: BP 113/59
--- NOTE | 2019-12-02 17:28 | RAD ---
CT LOWER EXTREMITY WO LEFT dated 12/02/2019 4:58 PM Indication:Reason: left hip swelling / Spl. Instructions: / History: Comparison: CT abdomen and pelvis of 11/28/2019. Technique: Helical noncontrast images were performed. Sagittal and coronal reconstructions were obtained. One or more of the following individualized dose reduction techniques were utilized for this examination: 1. Automated exposure control 2. Adjustment of the mA and/or kV according to patient size 3. Use of iterative reconstruction technique Findings: There is mild artifact arising from a fixation screw through the proximal left femur. There apparently was a pre-existing screw that was removed. No fracture or destructive process is seen. There is diffuse soft tissue edema at the hip and down the proximal thigh. No localized collection such as a hematoma or abscess is seen. Within the pelvis are areas of fluid and gas density presumably within bowel, although this region was not evaluated in detail. There are multiple surgical clips and some soft tissue density anterior to the external iliac vessels and not well from adjacent musculature. The etiology of this is uncertain. There was a similar appearance on the prior CT. A pigtail drainage catheter is present in the more superficial soft tissues without evidence of a surrounding abscess. IMPRESSION: No acute bony abnormality. There is soft tissue edema without evidence of a localized fluid collection such as an abscess. Electronically signed by: Mohsen Will Jr., MD (12/02/2019 5:25 PM) [id number]
[2019-12-02 19:00] VITALS: BP 112/60
[2019-12-02] MEDS: FLUCONAZOLE 400MG/200ML PREMIX 200 ML IV SCH (19:01)
[2019-12-02] MEDS ORDERED: DEXTROSE 70% IV SCH ×11 (22:00)
[2019-12-02] MEDS ORDERED: AMINO ACID IV SCH ×11 (22:00)
[2019-12-02] MEDS ORDERED: TOTAL PARENTERAL NUTRITION IV SCH ×11 (22:00)
[2019-12-02] MEDS ORDERED: [UNRECOGNIZED DRUG - OTHER] IV SCH ×11 (22:00)
[2019-12-02 23:15] VITALS: BP 132/73
[2019-12-03] MEDS: PIPERACILLIN/TAZOBACTAM 3.375 GM in IV NORMAL SALINE 50ML 50 ML IV SCH ×3 (00:29→12:18)
[2019-12-03] MEDS: HYDROmorphone 2 MG/ML VIAL IV PRN ×5 (02:24→22:21)
[2019-12-03 03:10] VITALS: BP 145/89
[2019-12-03 07:30] VITALS: BP 136/62
[2019-12-03] MEDS: PANTOPRAZOLE IV PUSH 40 MG VIAL. IVP SCH (09:00)
[2019-12-03] MEDS: SERTRALINE 50 MG TABLET. PO SCH (09:01)
[2019-12-03] MEDS: LIDOCAINE 2% TOPICAL JELLY 30GM TUBE. TP SCH ×2 (09:01→22:07)
[2019-12-03] MEDS: ZINC OXIDE 20% TOPICAL OINTMENT 28GM TUBE. TP SCH ×2 (09:01→22:07)
[2019-12-03] MEDS: VANCOMYCIN 125 MG/2.5 ML ORAL SOLUTION. PO SCH ×4 (09:16→22:19)
--- NOTE | 2019-12-03 11:11 | PDOC ---
PROGRESS NOTES Subjective Subjective feels better. comfortable. ct scan of LLE shows soft tissue edema. has edema in triceps bilaterally Objective Objective Vital Signs Date Time Temp Pulse Resp B/P (MAP) Pulse Ox O2 Delivery O2 Flow Rate FiO2 12/03/19 09:04 95 Room Air 12/03/19 07:30 97.9 83 18 136/62 (86) 97.9 Intake and Output 12/03/19 07:00 Intake Total 325 ml Balance 325 ml Intake Oral 325 ml # Voids 3 Physical Exam Abdomen: Soft, Other (EC fistula. induration near STACIE drain) Heart: Regular rate, Normal S1, Normal S2 Extremities: Other (edema LLQ abdominal wall near STACIE drain ) General: Alert HEENT: Atraumatic Lungs: Clear to auscultation Neuro: Normal speech Psych/Mental Status: Mental status NL Skin: No rashes Assessment Assessment ProblemsFever resolved. blood cultures negative 2. 4.8 cm fluid collection on ultrasound. LLQ abdominal wall firm area with tenderness next to STACIE drain 3. History of chronic abdominal pain due to abdominal adhesions. 4. Severe protein-calorie malnutrition. 5. History of Clostridium difficile colitis within the last year. 6. Enterovesical fistula. 7. Enterocutaneous fistula. indurated area LLQ abominal wall. critical illness myopathy nausea better peripheral edema Medical Problems: (1) Abdominal wall fistula Status: Acute (2) Intractable abdominal pain Status: Acute Plan Plan of Care start daily iv lasix continue iv zyvox and zosyn and fluconazole and oral vancomycin continue TPN labs tomorrow analgesics prn PT and OT Comment Review of Relevant I have reviewed the following items lucila (where applicable) has been applied. Labs Laboratory Tests Test 12/02/19 06:55 White Blood Count 7.1 x10^3/uL (4.0-11.0) Red Blood Count 3.13 x10^6/uL (3.50-5.40) Hemoglobin 9.3 g/dL (12.0-15.5) Hematocrit 28.1 % (36.0-47.0) Mean Corpuscular Volume 90 fL (79-100) Mean Corpuscular Hemoglobin 30 pg (25-35) Mean Corpuscular Hemoglobin Concent 33 g/dL (31-37) Red Cell Distribution Width 18.3 % (11.5-14.5) Platelet Count 392 x10^3/uL (140-400) Neutrophils (%) (Auto) 66 % (31-73) Lymphocytes (%) (Auto) 16 % (24-48) Monocytes (%) (Auto) 6 % (0-9) Eosinophils (%) (Auto) 10 % (0-3) Basophils (%) (Auto) 1 % (0-3) Neutrophils # (Auto) 4.7 x10^3/uL (1.8-7.7) Lymphocytes # (Auto) 1.1 x10^3/uL (1.0-4.8) Monocytes # (Auto) 0.4 x10^3/uL (0.0-1.1) Eosinophils # (Auto) 0.7 x10^3/uL (0.0-0.7) Basophils # (Auto) 0.1 x10^3/uL (0.0-0.2) Sodium Level 142 mmol/L (136-145) Potassium Level 4.4 mmol/L (3.5-5.1) Chloride Level 107 mmol/L (98-107) Carbon Dioxide Level 31 mmol/L (21-32) Anion Gap 4 (6-14) Blood Urea Nitrogen 17 mg/dL (7-20) Creatinine 0.6 mg/dL (0.6-1.0) Estimated GFR (Cockcroft-Gault) 121.8 Glucose Level 93 mg/dL (70-99) Calcium Level 7.9 mg/dL (8.5-10.1) Magnesium Level 2.0 mg/dL (1.8-2.4) Microbiology 11/28/19 Blood Culture - Preliminary, Resulted NO GROWTH AFTER 4 DAYS Medications Current Medications Hydromorphone HCl (Dilaudid) 1 mg PRN Q15MIN PRN IV/SQ PAIN GREATER THAN 3/10 Last administered on 11/28/19at 17:49; Start 11/28/19 at 15:15; Stop 11/29/19 at 12:34; Status DC Piperacillin Sod/ Tazobactam Sod 3.375 gm/Sodium Chloride 50 ml @ 100 mls/hr 1X ONCE IV Last administered on 11/28/19at 15:30; Start 11/28/19 at 15:30; Stop 11/28/19 at 15:59; Status DC Sodium Chloride 1,000 ml @ 1,000 mls/hr 1X ONCE IV Last administered on 11/28/19at 15:38; Start 11/28/19 at 15:15; Stop 11/28/19 at 16:14; Status DC Info (Tpn Per Pharmacy) 1 each PRN DAILY PRN MC SEE COMMENTS Last administered on 12/02/19at 12:50; Start 11/29/19 at 22:00 Linezolid/Dextrose 300 ml @ 300 mls/hr Q12HR IV Last administered on 12/03/19at 09:01; Start 11/28/19 at 18:00 Piperacillin Sod/ Tazobactam Sod 3.375 gm/Sodium Chloride 50 ml @ 100 mls/hr Q6HRS IV Last administered on 12/03/19at 06:07; Start 11/29/19 at 00:00 Potassium Chloride/Dextrose/ Sod Cl 1,000 ml @ 80 mls/hr [id number] IV Last administered on 11/29/19at 07:35; Start 11/28/19 at 16:45; Stop 11/29/19 at 21:59; Status DC Hydromorphone HCl (Dilaudid) 1 mg Q4HRS PRN IV MODERATE PAIN Last administered on 12/03/19at 02:24; Start 11/28/19 at 16:45 Zolpidem Tartrate (Ambien) 5 mg PRN QHS PRN PO INSOMNIA Last administered on 11/29/19at 23:28; Start 11/28/19 at 16:45 Fluconazole/ Sodium Chloride 100 ml @ 100 mls/hr Q24H IV Last administered on 11/28/19at 18:17; Start 11/28/19 at 17:00; Stop 11/29/19 at 09:37; Status DC Lidocaine HCl (Xylocaine 2% Topical 30gm Tube) 1 sang BID TP Last administered on 12/03/19at 09:01; Start 11/28/19 at 21:00 Zinc Oxide (Zinc Oxide 20% Topical) 1 sang BID TP Last administered on 12/03/19at 09:01; Start 11/28/19 at 21:00 Vancomycin HCl (Vancomycin Oral Solution) 125 mg [id number] PO Last administered on 12/03/19at 09:16; Start 11/28/19 at 17:00 Acetaminophen (Tylenol) 650 mg Q6HRS PRN PO MILD PAIN / TEMP > 100.3'F; Start 11/28/19 at 16:45 Pantoprazole Sodium (Protonix) 40 mg DAILYAC PO Last administered on 11/29/19at 06:09; Start 11/29/19 at 07:30; Stop 11/29/19 at 11:34; Status DC Sertraline HCl (Zoloft) 50 mg DAILY PO Last administered on 12/03/19at 09:01; Start 11/29/19 at 09:00 Lorazepam (Ativan) 0.5 mg Q6HRS PRN PO ANXIETY / AGITATION; Start 11/28/19 at 16:45 Ondansetron HCl (Zofran) 4 mg Q6HRS PRN IVP NAUSEA/VOMITING Last administered on 12/01/19at 09:51; Start 11/28/19 at 16:45; Stop 12/01/19 at 11:00; Status DC Diphenhydramine HCl (Benadryl) 25 mg Q6HRS PRN PO ITCHING; Start 11/28/19 at 16:45 Al Hydroxide/Mg Hydroxide (Mylanta Plus Xs) 30 ml PRN Q2HR PRN PO HEARTBURN / GAS Last administered on 11/28/19at 21:31; Start 11/28/19 at 20:45 Hydromorphone HCl (Dilaudid) 2 mg PRN Q4HRS PRN IV SEVERE PAIN Last administered on 12/03/19at 09:04; Start 11/28/19 at 20:45 Fluconazole/ Sodium Chloride 200 ml @ 100 mls/hr Q24H IV Last administered on 12/02/19at 19:01; Start 11/29/19 at 17:00 Magnesium Sulfate 50 ml @ 25 mls/hr 1X ONCE IV Last administered on 11/29/19at 10:30; Start 11/29/19 at 10:30; Stop 11/29/19 at 12:29; Status DC Pantoprazole Sodium (PROTONIX VIAL for IV PUSH) 40 mg DAILYAC IVP Last administered on 12/03/19at 09:00; Start 11/30/19 at 07:30 Sodium Chloride 120 meq/Sodium Acetate 110 meq/ Potassium Chloride 30 meq/ Potassium Phosphate 22 mmol/ Magnesium Sulfate 24 meq/Calcium Gluconate 10 meq/ Multivitamins 10 ml/Chromium/ Copper/Manganese/ Seleni/Zn 1 ml/ Total Parenteral Nutrition/Amino Acids/Dextrose/ Fat Emulsion Intravenous 1,920 ml @ 80 mls/hr TPN CONT IV Last administered on 11/29/19at 18:54; Start 11/29/19 at 22:00; Stop 11/30/19 at 21:59; Status DC Sodium Chloride 120 meq/Sodium Acetate 120 meq/ Potassium Acetate 30 meq/Potassium Phosphate 22 mmol/ Magnesium Sulfate 24 meq/Calcium Gluconate 10 meq/ Multivitamins 10 ml/Chromium/ Copper/Manganese/ Seleni/Zn 1 ml/ Total Parenteral Nutrition/Amino Acids/Dextrose/ Fat Emulsion Intravenous 1,920 ml @ 80 mls/hr TPN CONT IV Last administered on 11/30/19at 20:51; Start 11/30/19 at 22:00; Stop 12/01/19 at 21:59; Status DC Ondansetron HCl (Zofran) 8 mg Q6HRS PRN IVP NAUSEA/VOMITING; Start 12/01/19 at 11:00 Sodium Chloride 120 meq/Sodium Acetate 120 meq/ Potassium Acetate 30 meq/Potassium Phosphate 22 mmol/ Magnesium Sulfate 24 meq/Calcium Gluconate 10 meq/ Multivitamins 10 ml/Chromium/ Copper/Manganese/ Seleni/Zn 1 ml/ Total Parenteral Nutrition/Amino Acids/Dextrose/ Fat Emulsion Intravenous 1,920 ml @ 80 mls/hr TPN CONT IV Last administered on 12/01/19at 21:11; Start 12/01/19 at 22:00; Stop 12/02/19 at 21:59; Status DC Sodium Chloride 120 meq/Sodium Acetate 120 meq/ Potassium Acetate 30 meq/Potassium Phosphate 22 mmol/ Magnesium Sulfate 24 meq/Calcium Gluconate 10 meq/ Multivitamins 10 ml/Chromium/ Copper/Manganese/ Seleni/Zn 1 ml/ Total Parenteral Nutrition/Amino Acids/Dextrose/ Fat Emulsion Intravenous 1,920 ml @ 80 mls/hr TPN CONT IV Last administered on 12/02/19at 21:34; Start 12/02/19 at 22:00; Stop 12/03/19 at 21:59 Active Scripts Active Daptomycin 350 Mg Vial 300 Mg IV DAILY 3 Days Metronidazole 500 Mg Tablet 1 Tab PO Q8HRS 14 Days Dilaudid (Hydromorphone Hcl) 2 Mg Tablet 1 Tab PO Q6HRS PRN MDD 4 Tablet(s) Pantoprazole Sodium (Pantoprazole Sodium) 40 Mg Tablet.dr 40 Mg PO DAILYAC Tylenol (Acetaminophen) 325 Mg Tablet 650 Mg PO PRN Q6HRS PRN [Pantoprazole] 40 MG Tablet.dr 40 Mg PO DAILYAC 30 Days Zinc Oxide 56.7 Gm Oint...g. 1 Sang TP BID Ambien (Zolpidem Tartrate) 5 Mg Tablet 5 Mg PO PRN QHS PRN 30 Days [Tpn Per Pharmacy] 1 EACH Each 1 Each PRN DAILY PRN TPN at 85cc/hour Sertraline Hcl 50 Mg Tablet 50 Mg PO DAILY 30 Days Lidocaine 35.44 Gm Oint...g. 1 Sang TP BID Reported Ondansetron Hcl 4 Mg Tablet 4 Mg PO PRN Q6HRS PRN Lorazepam 0.5 Mg Tablet 0.5 Mg PO Q6HRS PRN Vitals/I & O Vital Sign - Last 24 Hours 12/02/19 12/02/19 12/02/19 12/02/19 11:27 11:32 12:06 15:30 Temp 97.6 97.7 97.6 97.7 Pulse 63 65 Resp 16 16 B/P (MAP) 135/64 (87) 113/59 (77) Pulse Ox 98 100 100 99 O2 Delivery Room Air Room Air Room Air Room Air 12/02/19 12/02/19 12/02/19 12/02/19 16:12 17:29 19:00 19:45 Temp 98.2 98.2 Pulse 70 Resp 16 B/P (MAP) 112/60 (77) Pulse Ox 100 100 100 O2 Delivery Room Air Room Air Room Air Room Air 12/02/19 12/02/19 12/02/19 12/03/19 21:34 22:05 23:15 02:24 Temp 97.7 97.7 Pulse 72 Resp 16 B/P (MAP) 132/73 (92) Pulse Ox 100 98 98 O2 Delivery Room Air Room Air Room Air Room Air 12/03/19 12/03/19 12/03/19 12/03/19 02:45 03:10 07:30 08:00 Temp 98.3 97.9 98.3 97.9 Pulse 79 83 Resp 16 18 B/P (MAP) 145/89 (107) 136/62 (86) Pulse Ox 98 98 95 O2 Delivery Room Air Room Air Room Air Room Air 12/03/19 09:04 Pulse Ox 95 O2 Delivery Room Air Intake and Output 12/02/19 12/02/19 12/03/19 15:00 23:00 07:00 Intake Total 25 ml 300 ml Balance 25 ml 300 ml Nutrition Consultation Dietary Evaluation: Recommendations by RD: Dietary education by RD, PPN/TPN Comments: continue with home TPN and diet as tolerated Expected Outcomes/Goals: to meet >75% est nutr needs Malnutrition Findings: Muscle Mass (Severe): Severe Depletion Body Fat Depletion (Non Severe: Mod to Severe Weight Status: Underweight BENITA LUTZ MD Dec 03, 2019 11:11
[2019-12-03] MEDS: TPN PER PHARMACY MC PRN (11:20)
[2019-12-03 11:25] VITALS: BP 120/55
[2019-12-03] MEDS: FUROSEMIDE 20 MG/2 ML VIAL. IVP SCH (12:18)
--- NOTE | 2019-12-03 12:48 | NUR ---
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 Height: 5 feet, 4 inches Weight: 38.4 kg Current diet: REGULAR LABS: Sodium: 142 Potassium: 4.4 Chloride: 107 Calcium: 7.9 Corrected Calcium: 9.34 Magnesium: 2.0 CO2: 31 SCr: 0.6 Glucose: 93 Albumin: 2.2 AST: 14 ALT: 13 TPN FORMULA: TPN TYPE: Central Continuous AMINO ACIDS: 90 gm DEXTROSE: 285 gm LIPIDS: 35 gm SODIUM CHLORIDE: 120 mEq SODIUM ACETATE: 120 mEq SODIUM PHOSPHATE: - mmol POTASSIUM CHLORIDE: - mEq POTASSIUM ACETATE: 30 mEq POTASSIUM PHOSPHATE: 22 mmol MAGNESIUM: 24 mEq CALCIUM: 10 mEq INSULIN: - units MULTIPLE VITAMIN: 10 ml TRACE ELEMENTS: 1 ml(s) TPN PLAN: 12/02 no lab today, Continue same TPN, lab in the am. R: Continue TPN AT 80 ML/HR Will monitor electrolytes, glucose, and tolerance to TPN. MARQUEZ FIGUEROA [facility], 12/03/19 [id number]
--- NOTE | 2019-12-03 12:57 | PDOC ---
Infectious Disease Note Subjective Subjective Pierre is sitting up in chair. Feeling pretty good. Continues to have swelling into the abdomen and in the hip. ROS ROS No nausea vomiting diarrhea chest pain shortness of breath or fever Vital Sign Vital Signs Vital Signs Date Time Temp Pulse Resp B/P (MAP) Pulse Ox O2 Delivery O2 Flow Rate FiO2 12/03/19 11:25 97.3 70 16 120/55 (76) 95 Room Air 97.3 Physical Exam PHYSICAL EXAM GENERAL: Up on a commode very comfortable HEENT: Pupils equal and reactive. She has normal conjunctivae. Oral cavity, pharynx is without thrush. NECK: Supple, no JVD. LUNGS: Decreased in the bases. HEART: S1, S2. ABDOMEN: Cronic excoriations, but healing areas as well. Fullness/swelling left side of abdomen extending down to the left groin/hip area Purulent material draining from low mid ant area, STACIE drain in the left lower quadrant. EXTREMITIES: Without clubbing or cyanosis. She has trace edema. SKIN: Warm to touch without signs of rash. NEUROLOGIC: She is nonfocal, moves all extremities. Right sided CVC line clean Labs Micro Microbiology 11/28/19 Blood Culture - Preliminary, Resulted NO GROWTH AFTER 4 DAYS Objective Assessment Fever - better blood cults neg Abd Pain 4.8 ? complex fluid collection - not amenable to drainage per IR 11/29 Drain leakage Vanc allergy Short gut H/o C-diff H/o Abdominal wall abscess Enterocutaneous fistula. Enterovesicular fistula. Malnutrition. H/o Esophagitis. Anemia Chronic TPN H/o Coagulase-negative staph on blood culture,msse status post line change, repeat blood cultures negative Plan Plan of Care Discontinue antibiotics Zosyn/Zyvox/Diflucan/po Vanc General surgery following F/u labs and cults Pain management per primary Supportive care D/w nursing CT hip unremarkable Need to remove the STACIE drain by radiology tomorrow Patient can be discharged soon JOSSY TATUM MD Dec 03, 2019 12:57
[2019-12-03 15:52] VITALS: BP 130/70
[2019-12-03 19:00] VITALS: BP 120/75
[2019-12-03] MEDS ORDERED: DEXTROSE 70% IV SCH ×11 (22:00)
[2019-12-03] MEDS ORDERED: [UNRECOGNIZED DRUG - OTHER] IV SCH ×11 (22:00)
[2019-12-03] MEDS ORDERED: AMINO ACID IV SCH ×11 (22:00)
[2019-12-03] MEDS ORDERED: TOTAL PARENTERAL NUTRITION IV SCH ×11 (22:00)
[2019-12-03 23:00] VITALS: BP 121/74
[2019-12-04 03:00] VITALS: BP 135/66
[2019-12-04] MEDS: HYDROmorphone 2 MG/ML VIAL IV PRN ×5 (04:02→21:47)
[2019-12-04 04:24] LABS: BASO # 0.1 x10^3/uL (0.0-0.2); BASO % 2 % (0-3); EOS # 0.3 x10^3/uL (0.0-0.7); EOS % 7 % (0-3); HEMATOCRIT 27.1 % (36.0-47.0); LYMPH # 1.2 x10^3/uL (1.0-4.8); LYMPH % 25 % (24-48); MEAN CORPUSCULAR HEMOGLOBIN 30 pg (25-35); MEAN CORPUSCULAR HGB CONC 33 g/dL (31-37); MEAN CORPUSCULAR VOLUME 90 fL (79-100); MONO # 0.2 x10^3/uL (0.0-1.1); MONO % 4 % (0-9); NEUT # 2.9 x10^3/uL (1.8-7.7); NEUT % 62 % (31-73); PLATELET COUNT 351 x10^3/uL (140-400); RED CELL DISTRIBUTION WIDTH 18.2 % (11.5-14.5); WHITE BLOOD COUNT 4.7 x10^3/uL (4.0-11.0)
[2019-12-04 04:54] LABS: ALBUMIN 1.3 g/dL (3.4-5.0); ALBUMIN/GLOBULIN RATIO 0.3 (1.0-1.7); ALK PHOS 118 U/L (46-116); ANION GAP 3 (6-14); AST (SGOT) 12 U/L (15-37); BLOOD UREA NITROGEN 17 mg/dL (7-20); BUN/CREATININE RATIO 28 (6-20); CALCIUM 8.3 mg/dL (8.5-10.1); CARBON DIOXIDE 34 mmol/L (21-32); CHLORIDE 104 mmol/L (98-107); CREATININE 0.6 mg/dL (0.6-1.0); GFR 121.8; GLUCOSE 97 mg/dL (70-99); POTASSIUM 4.5 mmol/L (3.5-5.1); SODIUM 141 mmol/L (136-145); TOTAL BILIRUBIN 0.1 mg/dL (0.2-1.0); TOTAL PROTEIN 6.4 g/dL (6.4-8.2); TRIGLYCERIDES 49 mg/dL (0-150)
[2019-12-04 04:55] LABS: ALT (SGPT) < 6 U/L (14-59)
[2019-12-04 07:00] VITALS: BP 130/67
[2019-12-04] MEDS: SERTRALINE 50 MG TABLET. PO SCH (08:08)
[2019-12-04] MEDS: PANTOPRAZOLE IV PUSH 40 MG VIAL. IVP SCH (08:09)
[2019-12-04] MEDS: VANCOMYCIN 125 MG/2.5 ML ORAL SOLUTION. PO SCH ×4 (08:09→20:56)
[2019-12-04] MEDS: LIDOCAINE 2% TOPICAL JELLY 30GM TUBE. TP SCH ×2 (08:09→20:57)
[2019-12-04] MEDS: FUROSEMIDE 20 MG/2 ML VIAL. IVP SCH (08:09)
[2019-12-04] MEDS: ZINC OXIDE 20% TOPICAL OINTMENT 28GM TUBE. TP SCH ×2 (08:09→20:57)
--- NOTE | 2019-12-04 09:49 | PDOC ---
Infectious Disease Note Subjective Subjective Patient is feeling fine has no complaints ROS ROS No nausea vomiting diarrhea chest pain shortness of breath Vital Sign Vital Signs Vital Signs Date Time Temp Pulse Resp B/P (MAP) Pulse Ox O2 Delivery O2 Flow Rate FiO2 12/04/19 08:43 Room Air 12/04/19 07:00 98.2 74 18 130/67 (88) 100 98.2 Physical Exam PHYSICAL EXAM GENERAL: Up on a commode very comfortable HEENT: Pupils equal and reactive. She has normal conjunctivae. Oral cavity, pharynx is without thrush. NECK: Supple, no JVD. LUNGS: Decreased in the bases. HEART: S1, S2. ABDOMEN: Cronic excoriations, but healing areas as well. Fullness/swelling left side of abdomen extending down to the left groin/hip area Purulent material draining from low mid ant area, STACIE drain in the left lower quadrant. EXTREMITIES: Without clubbing or cyanosis. She has trace edema. SKIN: Warm to touch without signs of rash. NEUROLOGIC: She is nonfocal, moves all extremities. Right sided CVC line clean Labs Lab Laboratory Tests Test 12/04/19 03:05 White Blood Count 4.7 x10^3/uL (4.0-11.0) Red Blood Count 3.00 x10^6/uL (3.50-5.40) Hemoglobin 9.0 g/dL (12.0-15.5) Hematocrit 27.1 % (36.0-47.0) Mean Corpuscular Volume 90 fL (79-100) Mean Corpuscular Hemoglobin 30 pg (25-35) Mean Corpuscular Hemoglobin Concent 33 g/dL (31-37) Red Cell Distribution Width 18.2 % (11.5-14.5) Platelet Count 351 x10^3/uL (140-400) Neutrophils (%) (Auto) 62 % (31-73) Lymphocytes (%) (Auto) 25 % (24-48) Monocytes (%) (Auto) 4 % (0-9) Eosinophils (%) (Auto) 7 % (0-3) Basophils (%) (Auto) 2 % (0-3) Neutrophils # (Auto) 2.9 x10^3/uL (1.8-7.7) Lymphocytes # (Auto) 1.2 x10^3/uL (1.0-4.8) Monocytes # (Auto) 0.2 x10^3/uL (0.0-1.1) Eosinophils # (Auto) 0.3 x10^3/uL (0.0-0.7) Basophils # (Auto) 0.1 x10^3/uL (0.0-0.2) Sodium Level 141 mmol/L (136-145) Potassium Level 4.5 mmol/L (3.5-5.1) Chloride Level 104 mmol/L (98-107) Carbon Dioxide Level 34 mmol/L (21-32) Anion Gap 3 (6-14) Blood Urea Nitrogen 17 mg/dL (7-20) Creatinine 0.6 mg/dL (0.6-1.0) Estimated GFR (Cockcroft-Gault) 121.8 BUN/Creatinine Ratio 28 (6-20) Glucose Level 97 mg/dL (70-99) Calcium Level 8.3 mg/dL (8.5-10.1) Phosphorus Level 4.0 mg/dL (2.6-4.7) Magnesium Level 2.0 mg/dL (1.8-2.4) Total Bilirubin 0.1 mg/dL (0.2-1.0) Aspartate Amino Transf (AST/SGOT) 12 U/L (15-37) Alanine Aminotransferase (ALT/SGPT) < 6 U/L (14-59) Alkaline Phosphatase 118 U/L (46-116) Total Protein 6.4 g/dL (6.4-8.2) Albumin 1.3 g/dL (3.4-5.0) Albumin/Globulin Ratio 0.3 (1.0-1.7) Triglycerides Level 49 mg/dL (0-150) Micro Microbiology 11/28/19 Blood Culture - Preliminary, Resulted NO GROWTH AFTER 4 DAYS Objective Assessment Fever - better blood cults neg Abd Pain 4.8 ? complex fluid collection - not amenable to drainage per IR 11/29 Drain leakage Vanc allergy Short gut H/o C-diff H/o Abdominal wall abscess Enterocutaneous fistula. Enterovesicular fistula. Malnutrition. H/o Esophagitis. Anemia Chronic TPN H/o Coagulase-negative staph on blood culture,msse status post line change, repeat blood cultures negative Plan Plan of Care Discontinue antibiotics Zosyn/Zyvox/Diflucan/po Vanc General surgery following F/u labs and cults Pain management per primary Supportive care D/w nursing CT hip unremarkable Need to remove the STACIE drain by radiology today Patient can be discharged soon JOSSY TATUM MD Dec 04, 2019 09:49
--- NOTE | 2019-12-04 10:32 | PDOC ---
JULY SUGGS TOBACCO WETTER 12/04/19 1032: SURGICAL PROGRESS NOTE Subjective in better spirits today pain about the same d/w ID Vital Signs Vital Signs Date Time Temp Pulse Resp B/P (MAP) Pulse Ox O2 Delivery O2 Flow Rate FiO2 12/04/19 09:52 Room Air 12/04/19 07:00 98.2 74 18 130/67 (88) 100 98.2 I&O Intake and Output 12/04/19 07:00 Intake Total 2870 ml Output Total 600 ml Balance 2270 ml Intake Oral 950 ml IV Total 1920 ml Output Urine Total 600 ml # Voids 2 General: Alert, Oriented X3, Cooperative Abdomen: Soft, Other (pam in place) Labs Laboratory Tests Test 12/04/19 03:05 White Blood Count 4.7 x10^3/uL (4.0-11.0) Red Blood Count 3.00 x10^6/uL (3.50-5.40) Hemoglobin 9.0 g/dL (12.0-15.5) Hematocrit 27.1 % (36.0-47.0) Mean Corpuscular Volume 90 fL (79-100) Mean Corpuscular Hemoglobin 30 pg (25-35) Mean Corpuscular Hemoglobin Concent 33 g/dL (31-37) Red Cell Distribution Width 18.2 % (11.5-14.5) Platelet Count 351 x10^3/uL (140-400) Neutrophils (%) (Auto) 62 % (31-73) Lymphocytes (%) (Auto) 25 % (24-48) Monocytes (%) (Auto) 4 % (0-9) Eosinophils (%) (Auto) 7 % (0-3) Basophils (%) (Auto) 2 % (0-3) Neutrophils # (Auto) 2.9 x10^3/uL (1.8-7.7) Lymphocytes # (Auto) 1.2 x10^3/uL (1.0-4.8) Monocytes # (Auto) 0.2 x10^3/uL (0.0-1.1) Eosinophils # (Auto) 0.3 x10^3/uL (0.0-0.7) Basophils # (Auto) 0.1 x10^3/uL (0.0-0.2) Sodium Level 141 mmol/L (136-145) Potassium Level 4.5 mmol/L (3.5-5.1) Chloride Level 104 mmol/L (98-107) Carbon Dioxide Level 34 mmol/L (21-32) Anion Gap 3 (6-14) Blood Urea Nitrogen 17 mg/dL (7-20) Creatinine 0.6 mg/dL (0.6-1.0) Estimated GFR (Cockcroft-Gault) 121.8 BUN/Creatinine Ratio 28 (6-20) Glucose Level 97 mg/dL (70-99) Calcium Level 8.3 mg/dL (8.5-10.1) Phosphorus Level 4.0 mg/dL (2.6-4.7) Magnesium Level 2.0 mg/dL (1.8-2.4) Total Bilirubin 0.1 mg/dL (0.2-1.0) Aspartate Amino Transf (AST/SGOT) 12 U/L (15-37) Alanine Aminotransferase (ALT/SGPT) < 6 U/L (14-59) Alkaline Phosphatase 118 U/L (46-116) Total Protein 6.4 g/dL (6.4-8.2) Albumin 1.3 g/dL (3.4-5.0) Albumin/Globulin Ratio 0.3 (1.0-1.7) Triglycerides Level 49 mg/dL (0-150) Laboratory Tests Test 12/04/19 03:05 White Blood Count 4.7 x10^3/uL (4.0-11.0) Red Blood Count 3.00 x10^6/uL (3.50-5.40) Hemoglobin 9.0 g/dL (12.0-15.5) Hematocrit 27.1 % (36.0-47.0) Mean Corpuscular Volume 90 fL (79-100) Mean Corpuscular Hemoglobin 30 pg (25-35) Mean Corpuscular Hemoglobin Concent 33 g/dL (31-37) Red Cell Distribution Width 18.2 % (11.5-14.5) Platelet Count 351 x10^3/uL (140-400) Neutrophils (%) (Auto) 62 % (31-73) Lymphocytes (%) (Auto) 25 % (24-48) Monocytes (%) (Auto) 4 % (0-9) Eosinophils (%) (Auto) 7 % (0-3) Basophils (%) (Auto) 2 % (0-3) Neutrophils # (Auto) 2.9 x10^3/uL (1.8-7.7) Lymphocytes # (Auto) 1.2 x10^3/uL (1.0-4.8) Monocytes # (Auto) 0.2 x10^3/uL (0.0-1.1) Eosinophils # (Auto) 0.3 x10^3/uL (0.0-0.7) Basophils # (Auto) 0.1 x10^3/uL (0.0-0.2) Sodium Level 141 mmol/L (136-145) Potassium Level 4.5 mmol/L (3.5-5.1) Chloride Level 104 mmol/L (98-107) Carbon Dioxide Level 34 mmol/L (21-32) Anion Gap 3 (6-14) Blood Urea Nitrogen 17 mg/dL (7-20) Creatinine 0.6 mg/dL (0.6-1.0) Estimated GFR (Cockcroft-Gault) 121.8 BUN/Creatinine Ratio 28 (6-20) Glucose Level 97 mg/dL (70-99) Calcium Level 8.3 mg/dL (8.5-10.1) Phosphorus Level 4.0 mg/dL (2.6-4.7) Magnesium Level 2.0 mg/dL (1.8-2.4) Total Bilirubin 0.1 mg/dL (0.2-1.0) Aspartate Amino Transf (AST/SGOT) 12 U/L (15-37) Alanine Aminotransferase (ALT/SGPT) < 6 U/L (14-59) Alkaline Phosphatase 118 U/L (46-116) Total Protein 6.4 g/dL (6.4-8.2) Albumin 1.3 g/dL (3.4-5.0) Albumin/Globulin Ratio 0.3 (1.0-1.7) Triglycerides Level 49 mg/dL (0-150) Problem List Problems Medical Problems: (1) Abdominal wall fistula Status: Acute (2) Intractable abdominal pain Status: Acute Assessment/Plan scant drainage from drain--ID would like radiology to pull today--ok from surg ical POV no surgical indications--will sign off, please call with questions Justicifation of Admission Dx: Justifications for Admission: Justification of Admission Dx: Yes ANIA PATTON MD 12/04/19 1236: SURGICAL PROGRESS NOTE Assessment/Plan as above thanks JULY SUGGS APRN Dec 04, 2019 10:32 ANIA PATTON MD Dec 04, 2019 12:36
--- NOTE | 2019-12-04 10:34 | PDOC ---
PROGRESS NOTES Subjective Subjective feels better. lab reviewed. Objective Objective Vital Signs Date Time Temp Pulse Resp B/P (MAP) Pulse Ox O2 Delivery O2 Flow Rate FiO2 12/04/19 09:52 Room Air 12/04/19 07:00 98.2 74 18 130/67 (88) 100 98.2 Intake and Output 12/04/19 07:00 Intake Total 2870 ml Output Total 600 ml Balance 2270 ml Intake Oral 950 ml IV Total 1920 ml Output Urine Total 600 ml # Voids 2 Physical Exam Abdomen: Soft, Other (STACIE drain. induration near STACIE drain abdominal wall could be edema) Heart: Regular rate, Normal S1, Normal S2 Extremities: Other (1 plus edema feet) General: Alert HEENT: Atraumatic Lungs: Clear to auscultation Neuro: Normal speech Psych/Mental Status: Mental status NL Skin: No rashes Assessment Assessment Problems abdominal pain better peripheral edema enterocutaneous fistula enterovesical fistula anemia of chronic disease severe protein calorie malnutriton Medical Problems: (1) Abdominal wall fistula Status: Acute (2) Intractable abdominal pain Status: Acute Plan Plan of Care d/c STACIE drain today per IR continue iv lasix d/c antibiotics per ID lab tomorrow consider dismissal tomorrow Comment Review of Relevant I have reviewed the following items lucila (where applicable) has been applied. Labs Laboratory Tests Test 12/04/19 03:05 White Blood Count 4.7 x10^3/uL (4.0-11.0) Red Blood Count 3.00 x10^6/uL (3.50-5.40) Hemoglobin 9.0 g/dL (12.0-15.5) Hematocrit 27.1 % (36.0-47.0) Mean Corpuscular Volume 90 fL (79-100) Mean Corpuscular Hemoglobin 30 pg (25-35) Mean Corpuscular Hemoglobin Concent 33 g/dL (31-37) Red Cell Distribution Width 18.2 % (11.5-14.5) Platelet Count 351 x10^3/uL (140-400) Neutrophils (%) (Auto) 62 % (31-73) Lymphocytes (%) (Auto) 25 % (24-48) Monocytes (%) (Auto) 4 % (0-9) Eosinophils (%) (Auto) 7 % (0-3) Basophils (%) (Auto) 2 % (0-3) Neutrophils # (Auto) 2.9 x10^3/uL (1.8-7.7) Lymphocytes # (Auto) 1.2 x10^3/uL (1.0-4.8) Monocytes # (Auto) 0.2 x10^3/uL (0.0-1.1) Eosinophils # (Auto) 0.3 x10^3/uL (0.0-0.7) Basophils # (Auto) 0.1 x10^3/uL (0.0-0.2) Sodium Level 141 mmol/L (136-145) Potassium Level 4.5 mmol/L (3.5-5.1) Chloride Level 104 mmol/L (98-107) Carbon Dioxide Level 34 mmol/L (21-32) Anion Gap 3 (6-14) Blood Urea Nitrogen 17 mg/dL (7-20) Creatinine 0.6 mg/dL (0.6-1.0) Estimated GFR (Cockcroft-Gault) 121.8 BUN/Creatinine Ratio 28 (6-20) Glucose Level 97 mg/dL (70-99) Calcium Level 8.3 mg/dL (8.5-10.1) Phosphorus Level 4.0 mg/dL (2.6-4.7) Magnesium Level 2.0 mg/dL (1.8-2.4) Total Bilirubin 0.1 mg/dL (0.2-1.0) Aspartate Amino Transf (AST/SGOT) 12 U/L (15-37) Alanine Aminotransferase (ALT/SGPT) < 6 U/L (14-59) Alkaline Phosphatase 118 U/L (46-116) Total Protein 6.4 g/dL (6.4-8.2) Albumin 1.3 g/dL (3.4-5.0) Albumin/Globulin Ratio 0.3 (1.0-1.7) Triglycerides Level 49 mg/dL (0-150) Laboratory Tests Test 12/04/19 03:05 White Blood Count 4.7 x10^3/uL (4.0-11.0) Red Blood Count 3.00 x10^6/uL (3.50-5.40) Hemoglobin 9.0 g/dL (12.0-15.5) Hematocrit 27.1 % (36.0-47.0) Mean Corpuscular Volume 90 fL (79-100) Mean Corpuscular Hemoglobin 30 pg (25-35) Mean Corpuscular Hemoglobin Concent 33 g/dL (31-37) Red Cell Distribution Width 18.2 % (11.5-14.5) Platelet Count 351 x10^3/uL (140-400) Neutrophils (%) (Auto) 62 % (31-73) Lymphocytes (%) (Auto) 25 % (24-48) Monocytes (%) (Auto) 4 % (0-9) Eosinophils (%) (Auto) 7 % (0-3) Basophils (%) (Auto) 2 % (0-3) Neutrophils # (Auto) 2.9 x10^3/uL (1.8-7.7) Lymphocytes # (Auto) 1.2 x10^3/uL (1.0-4.8) Monocytes # (Auto) 0.2 x10^3/uL (0.0-1.1) Eosinophils # (Auto) 0.3 x10^3/uL (0.0-0.7) Basophils # (Auto) 0.1 x10^3/uL (0.0-0.2) Sodium Level 141 mmol/L (136-145) Potassium Level 4.5 mmol/L (3.5-5.1) Chloride Level 104 mmol/L (98-107) Carbon Dioxide Level 34 mmol/L (21-32) Anion Gap 3 (6-14) Blood Urea Nitrogen 17 mg/dL (7-20) Creatinine 0.6 mg/dL (0.6-1.0) Estimated GFR (Cockcroft-Gault) 121.8 BUN/Creatinine Ratio 28 (6-20) Glucose Level 97 mg/dL (70-99) Calcium Level 8.3 mg/dL (8.5-10.1) Phosphorus Level 4.0 mg/dL (2.6-4.7) Magnesium Level 2.0 mg/dL (1.8-2.4) Total Bilirubin 0.1 mg/dL (0.2-1.0) Aspartate Amino Transf (AST/SGOT) 12 U/L (15-37) Alanine Aminotransferase (ALT/SGPT) < 6 U/L (14-59) Alkaline Phosphatase 118 U/L (46-116) Total Protein 6.4 g/dL (6.4-8.2) Albumin 1.3 g/dL (3.4-5.0) Albumin/Globulin Ratio 0.3 (1.0-1.7) Triglycerides Level 49 mg/dL (0-150) Microbiology 11/28/19 Blood Culture - Final, Complete NO GROWTH AFTER 5 DAYS Medications Current Medications Hydromorphone HCl (Dilaudid) 1 mg PRN Q15MIN PRN IV/SQ PAIN GREATER THAN 3/10 Last administered on 11/28/19at 17:49; Start 11/28/19 at 15:15; Stop 11/29/19 at 12:34; Status DC Piperacillin Sod/ Tazobactam Sod 3.375 gm/Sodium Chloride 50 ml @ 100 mls/hr 1X ONCE IV Last administered on 11/28/19at 15:30; Start 11/28/19 at 15:30; Stop 11/28/19 at 15:59; Status DC Sodium Chloride 1,000 ml @ 1,000 mls/hr 1X ONCE IV Last administered on 11/28/19at 15:38; Start 11/28/19 at 15:15; Stop 11/28/19 at 16:14; Status DC Info (Tpn Per Pharmacy) 1 each PRN DAILY PRN MC SEE COMMENTS Last administered on 12/03/19at 11:20; Start 11/29/19 at 22:00 Linezolid/Dextrose 300 ml @ 300 mls/hr Q12HR IV Last administered on 12/03/19at 09:01; Start 11/28/19 at 18:00; Stop 12/03/19 at 12:59; Status DC Piperacillin Sod/ Tazobactam Sod 3.375 gm/Sodium Chloride 50 ml @ 100 mls/hr Q6HRS IV Last administered on 12/03/19at 12:18; Start 11/29/19 at 00:00; Stop 12/03/19 at 12:59; Status DC Potassium Chloride/Dextrose/ Sod Cl 1,000 ml @ 80 mls/hr [id number] IV Last administered on 11/29/19at 07:35; Start 11/28/19 at 16:45; Stop 11/29/19 at 21:59; Status DC Hydromorphone HCl (Dilaudid) 1 mg Q4HRS PRN IV MODERATE PAIN Last administered on 12/04/19at 08:43; Start 11/28/19 at 16:45 Zolpidem Tartrate (Ambien) 5 mg PRN QHS PRN PO INSOMNIA Last administered on 11/29/19at 23:28; Start 11/28/19 at 16:45 Fluconazole/ Sodium Chloride 100 ml @ 100 mls/hr Q24H IV Last administered on 11/28/19at 18:17; Start 11/28/19 at 17:00; Stop 11/29/19 at 09:37; Status DC Lidocaine HCl (Xylocaine 2% Topical 30gm Tube) 1 sang BID TP Last administered on 12/04/19 08:09; Start 11/28/19 at 21:00 Zinc Oxide (Zinc Oxide 20% Topical) 1 sang BID TP Last administered on 12/04/19at 08:09; Start 11/28/19 at 21:00 Vancomycin HCl (Vancomycin Oral Solution) 125 mg [id number] PO Last administered on 12/04/19at 08:09; Start 11/28/19 at 17:00 Acetaminophen (Tylenol) 650 mg Q6HRS PRN PO MILD PAIN / TEMP > 100.3'F; Start 11/28/19 at 16:45 Pantoprazole Sodium (Protonix) 40 mg DAILYAC PO Last administered on 11/29/19at 06:09; Start 11/29/19 at 07:30; Stop 11/29/19 at 11:34; Status DC Sertraline HCl (Zoloft) 50 mg DAILY PO Last administered on 12/04/19at 08:08; Start 11/29/19 at 09:00 Lorazepam (Ativan) 0.5 mg Q6HRS PRN PO ANXIETY / AGITATION; Start 11/28/19 at 16:45 Ondansetron HCl (Zofran) 4 mg Q6HRS PRN IVP NAUSEA/VOMITING Last administered on 12/01/19at 09:51; Start 11/28/19 at 16:45; Stop 12/01/19 at 11:00; Status DC Diphenhydramine HCl (Benadryl) 25 mg Q6HRS PRN PO ITCHING; Start 11/28/19 at 16:45 Al Hydroxide/Mg Hydroxide (Mylanta Plus Xs) 30 ml PRN Q2HR PRN PO HEARTBURN / GAS Last administered on 11/28/19at 21:31; Start 11/28/19 at 20:45 Hydromorphone HCl (Dilaudid) 2 mg PRN Q4HRS PRN IV SEVERE PAIN Last administered on 12/03/19at 17:55; Start 11/28/19 at 20:45 Fluconazole/ Sodium Chloride 200 ml @ 100 mls/hr Q24H IV Last administered on 12/02/19at 19:01; Start 11/29/19 at 17:00; Stop 12/03/19 at 12:59; Status DC Magnesium Sulfate 50 ml @ 25 mls/hr 1X ONCE IV Last administered on 11/29/19at 10:30; Start 11/29/19 at 10:30; Stop 11/29/19 at 12:29; Status DC Pantoprazole Sodium (PROTONIX VIAL for IV PUSH) 40 mg DAILYAC IVP Last administered on 12/04/19at 08:09; Start 11/30/19 at 07:30 Sodium Chloride 120 meq/Sodium Acetate 110 meq/ Potassium Chloride 30 meq/ Potassium Phosphate 22 mmol/ Magnesium Sulfate 24 meq/Calcium Gluconate 10 meq/ Multivitamins 10 ml/Chromium/ Copper/Manganese/ Seleni/Zn 1 ml/ Total Parenteral Nutrition/Amino Acids/Dextrose/ Fat Emulsion Intravenous 1,920 ml @ 80 mls/hr TPN CONT IV Last administered on 11/29/19at 18:54; Start 11/29/19 at 22:00; Stop 11/30/19 at 21:59; Status DC Sodium Chloride 120 meq/Sodium Acetate 120 meq/ Potassium Acetate 30 meq/Potassium Phosphate 22 mmol/ Magnesium Sulfate 24 meq/Calcium Gluconate 10 meq/ Multivitamins 10 ml/Chromium/ Copper/Manganese/ Seleni/Zn 1 ml/ Total Parenteral Nutrition/Amino Acids/Dextrose/ Fat Emulsion Intravenous 1,920 ml @ 80 mls/hr TPN CONT IV Last administered on 11/30/19at 20:51; Start 11/30/19 at 22:00; Stop 12/01/19 at 21:59; Status DC Ondansetron HCl (Zofran) 8 mg Q6HRS PRN IVP NAUSEA/VOMITING; Start 12/01/19 at 11:00 Sodium Chloride 120 meq/Sodium Acetate 120 meq/ Potassium Acetate 30 meq/Potassium Phosphate 22 mmol/ Magnesium Sulfate 24 meq/Calcium Gluconate 10 meq/ Multivitamins 10 ml/Chromium/ Copper/Manganese/ Seleni/Zn 1 ml/ Total Parenteral Nutrition/Amino Acids/Dextrose/ Fat Emulsion Intravenous 1,920 ml @ 80 mls/hr TPN CONT IV Last administered on 12/01/19at 21:11; Start 12/01/19 at 22:00; Stop 12/02/19 at 21:59; Status DC Sodium Chloride 120 meq/Sodium Acetate 120 meq/ Potassium Acetate 30 meq/Potassium Phosphate 22 mmol/ Magnesium Sulfate 24 meq/Calcium Gluconate 10 meq/ Multivitamins 10 ml/Chromium/ Copper/Manganese/ Seleni/Zn 1 ml/ Total Parenteral Nutrition/Amino Acids/Dextrose/ Fat Emulsion Intravenous 1,920 ml @ 80 mls/hr TPN CONT IV Last administered on 12/02/19at 21:34; Start 12/02/19 at 22:00; Stop 12/03/19 at 21:59; Status DC Furosemide (Lasix) 20 mg DAILY IVP Last administered on 12/04/19at 08:09; Start 12/03/19 at 12:00 Sodium Chloride 120 meq/Sodium Acetate 120 meq/ Potassium Acetate 30 meq/Potassium Phosphate 22 mmol/ Magnesium Sulfate 24 meq/Calcium Gluconate 10 meq/ Multivitamins 10 ml/Chromium/ Copper/Manganese/ Seleni/Zn 1 ml/ Total Parenteral Nutrition/Amino Acids/Dextrose/ Fat Emulsion Intravenous 1,920 ml @ 80 mls/hr TPN CONT IV Last administered on 12/03/19at 22:07; Start 12/03/19 at 22:00; Stop 12/04/19 at 21:59 Active Scripts Active Daptomycin 350 Mg Vial 300 Mg IV DAILY 3 Days Metronidazole 500 Mg Tablet 1 Tab PO Q8HRS 14 Days Dilaudid (Hydromorphone Hcl) 2 Mg Tablet 1 Tab PO Q6HRS PRN MDD 4 Tablet(s) Pantoprazole Sodium (Pantoprazole Sodium) 40 Mg Tablet.dr 40 Mg PO DAILYAC Tylenol (Acetaminophen) 325 Mg Tablet 650 Mg PO PRN Q6HRS PRN [Pantoprazole] 40 MG Tablet.dr 40 Mg PO DAILYAC 30 Days Zinc Oxide 56.7 Gm Oint...g. 1 Sang TP BID Ambien (Zolpidem Tartrate) 5 Mg Tablet 5 Mg PO PRN QHS PRN 30 Days [Tpn Per Pharmacy] 1 EACH Each 1 Each MC PRN DAILY PRN TPN at 85cc/hour Sertraline Hcl 50 Mg Tablet 50 Mg PO DAILY 30 Days Lidocaine 35.44 Gm Oint...g. 1 Sang TP BID Reported Ondansetron Hcl 4 Mg Tablet 4 Mg PO PRN Q6HRS PRN Lorazepam 0.5 Mg Tablet 0.5 Mg PO Q6HRS PRN Vitals/I & O Vital Sign - Last 24 Hours 12/03/19 12/03/19 12/03/19 12/03/19 11:17 11:25 13:58 15:37 Temp 97.3 97.3 Pulse 70 Resp 16 B/P (MAP) 120/55 (76) Pulse Ox 95 95 95 95 O2 Delivery Room Air Room Air Room Air Room Air 12/03/19 12/03/19 12/03/19 12/03/19 15:52 18:29 19:00 19:45 Temp 97.6 97.7 97.6 97.7 Pulse 64 83 Resp 16 18 B/P (MAP) 130/70 (90) 120/75 (90) Pulse Ox 97 97 98 O2 Delivery Room Air Room Air Room Air Room Air 12/03/19 12/03/19 12/03/19 12/04/19 22:21 23:00 23:00 03:00 Temp 98.0 98.4 98.0 98.4 Pulse 68 71 Resp 18 18 B/P (MAP) 121/74 (90) 135/66 (89) Pulse Ox 98 98 99 100 O2 Delivery Room Air Room Air Room Air Room Air 12/04/19 12/04/19 12/04/19 12/04/19 04:02 04:30 07:00 08:43 Temp 98.2 98.2 Pulse 74 Resp 18 B/P (MAP) 130/67 (88) Pulse Ox 100 100 100 O2 Delivery Room Air Room Air Room Air Room Air 12/04/19 09:52 O2 Delivery Room Air Intake and Output 12/03/19 12/03/19 12/04/19 15:00 23:00 07:00 Intake Total 100 ml 2170 ml 600 ml Output Total 300 ml 300 ml Balance 100 ml 1870 ml 300 ml Nutrition Consultation Dietary Evaluation: Recommendations by RD: Dietary education by RD, PPN/TPN Comments: continue with home TPN and diet as tolerated Expected Outcomes/Goals: to meet >75% est nutr needs Malnutrition Findings: Muscle Mass (Severe): Severe Depletion Body Fat Depletion (Non Severe: Mod to Severe Weight Status: Underweight BENITA LUTZ MD Dec 04, 2019 10:34
--- NOTE | 2019-12-04 10:46 | PDOC ---
Subjective: Subjective: Eating w/o vomiting or swallowing issues, less drainage, no diarrhea. Wants to have Diflucan or Nystatin available at home w/ home health to use PRN for odynophagia. Objective: Vital Signs: Vital Signs Date Time Temp Pulse Resp B/P (MAP) Pulse Ox O2 Delivery O2 Flow Rate FiO2 12/04/19 09:52 Room Air 12/04/19 07:00 98.2 74 18 130/67 (88) 100 98.2 Labs: Laboratory Tests Test 12/04/19 03:05 White Blood Count 4.7 x10^3/uL Red Blood Count 3.00 x10^6/uL Hemoglobin 9.0 g/dL Hematocrit 27.1 % Mean Corpuscular Volume 90 fL Mean Corpuscular Hemoglobin 30 pg Mean Corpuscular Hemoglobin Concent 33 g/dL Red Cell Distribution Width 18.2 % Platelet Count 351 x10^3/uL Neutrophils (%) (Auto) 62 % Lymphocytes (%) (Auto) 25 % Monocytes (%) (Auto) 4 % Eosinophils (%) (Auto) 7 % Basophils (%) (Auto) 2 % Neutrophils # (Auto) 2.9 x10^3/uL Lymphocytes # (Auto) 1.2 x10^3/uL Monocytes # (Auto) 0.2 x10^3/uL Eosinophils # (Auto) 0.3 x10^3/uL Basophils # (Auto) 0.1 x10^3/uL Sodium Level 141 mmol/L Potassium Level 4.5 mmol/L Chloride Level 104 mmol/L Carbon Dioxide Level 34 mmol/L Anion Gap 3 Blood Urea Nitrogen 17 mg/dL Creatinine 0.6 mg/dL Estimated GFR (Cockcroft-Gault) 121.8 BUN/Creatinine Ratio 28 Glucose Level 97 mg/dL Calcium Level 8.3 mg/dL Phosphorus Level 4.0 mg/dL Magnesium Level 2.0 mg/dL Total Bilirubin 0.1 mg/dL Aspartate Amino Transf (AST/SGOT) 12 U/L Alanine Aminotransferase (ALT/SGPT) < 6 U/L Alkaline Phosphatase 118 U/L Total Protein 6.4 g/dL Albumin 1.3 g/dL Albumin/Globulin Ratio 0.3 Triglycerides Level 49 mg/dL BLOOD CULTURE Final NO GROWTH AFTER 5 DAYS Imaging: LE CT IMPRESSION: No acute bony abnormality. There is soft tissue edema without evidence of a localized fluid collection such as an abscess. 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 Seems could change to PO PPI since eating. Defer her request for PRN anti-fungal to Dr. Cisneros. Justicifation of Admission Dx: Justifications for Admission: Justification of Admission Dx: Yes MIESHA RICO Dec 04, 2019 10:46
[2019-12-04 11:00] VITALS: BP 126/73
[2019-12-04] MEDS: TPN PER PHARMACY MC PRN (12:42)
--- NOTE | 2019-12-04 12:43 | NUR ---
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 Height: 5 feet, 4 inches Weight: 38.4 kg Current diet: REGULAR LABS: Sodium: 141 Potassium: 4.5 Chloride: 104 Calcium: 8.3 Corrected Calcium: 10.46 Magnesium: 2.0 CO2: 34 SCr: 0.6 Glucose: 97 Albumin: 1.3 AST: 14 ALT: 13 TPN FORMULA: TPN TYPE: Central Continuous AMINO ACIDS: 90 gm DEXTROSE: 285 gm LIPIDS: 35 gm SODIUM CHLORIDE: 120 mEq SODIUM ACETATE: 120 mEq SODIUM PHOSPHATE: - mmol POTASSIUM CHLORIDE: - mEq POTASSIUM ACETATE: 30 mEq POTASSIUM PHOSPHATE: 22 mmol MAGNESIUM: 24 mEq CALCIUM: 10 mEq INSULIN: - units MULTIPLE VITAMIN: 10 ml TRACE ELEMENTS: 1 ml(s) TPN PLAN: LABS STABLE, NO CHANGE TO TPN. R: Continue TPN ABOVE. Will monitor electrolytes, glucose, and tolerance to TPN. CICI DURAN [facility], 12/04/19 1604
--- NOTE | 2019-12-04 14:45 | NUR ---
SW following. Reviewed chart and spoke with RN. STACIE drain and abx discharged. Dr. Cisneros says potential discharge home tomorrow, 12/05/2019 with Ramiro VELAZQUEZ and TPN from [facility]. Pt on room air. SW to continue following.
[2019-12-04 15:00] VITALS: BP 134/78
[2019-12-04 19:00] VITALS: BP 132/73
[2019-12-04] MEDS: LACTOBACILLUS RHAMNOSUS GG 1 CAPSULE. PO SCH (20:56)
[2019-12-04] MEDS ORDERED: DEXTROSE 70% IV SCH ×11 (22:00)
[2019-12-04] MEDS ORDERED: AMINO ACID IV SCH ×11 (22:00)
[2019-12-04] MEDS ORDERED: TOTAL PARENTERAL NUTRITION IV SCH ×11 (22:00)
[2019-12-04] MEDS ORDERED: [UNRECOGNIZED DRUG - OTHER] IV SCH ×11 (22:00)
[2019-12-04 23:00] VITALS: BP 133/68
[2019-12-05 03:00] VITALS: BP 146/90
[2019-12-05] MEDS: HYDROmorphone 2 MG/ML VIAL IV PRN ×3 (03:21→13:37)
[2019-12-05 04:10] LABS: BASO # 0.1 x10^3/uL (0.0-0.2); BASO % 2 % (0-3); EOS # 0.3 x10^3/uL (0.0-0.7); EOS % 6 % (0-3); HEMATOCRIT 25.5 % (36.0-47.0); HEMOGLOBIN 8.5 g/dL (12.0-15.5); LYMPH # 1.2 x10^3/uL (1.0-4.8); LYMPH % 28 % (24-48); MEAN CORPUSCULAR HEMOGLOBIN 30 pg (25-35); MEAN CORPUSCULAR HGB CONC 33 g/dL (31-37); MEAN CORPUSCULAR VOLUME 90 fL (79-100); MONO # 0.2 x10^3/uL (0.0-1.1); MONO % 3 % (0-9); NEUT # 2.6 x10^3/uL (1.8-7.7); NEUT % 60 % (31-73); PLATELET COUNT 365 x10^3/uL (140-400); RED BLOOD COUNT 2.84 x10^6/uL (3.50-5.40); RED CELL DISTRIBUTION WIDTH 18.2 % (11.5-14.5); WHITE BLOOD COUNT 4.4 x10^3/uL (4.0-11.0)
[2019-12-05 05:10] LABS: CREATININE 0.6 mg/dL (0.6-1.0); GFR 121.8; MAGNESIUM 1.9 mg/dL (1.8-2.4); POTASSIUM 4.5 mmol/L (3.5-5.1)
[2019-12-05 05:30] LABS: CALCIUM 8.3 mg/dL (8.5-10.1)
[2019-12-05 07:00] VITALS: BP 131/62
[2019-12-05] MEDS: PANTOPRAZOLE IV PUSH 40 MG VIAL. IVP SCH (08:02)
[2019-12-05] MEDS: LIDOCAINE 2% TOPICAL JELLY 30GM TUBE. TP SCH (09:42)
[2019-12-05] MEDS: ZINC OXIDE 20% TOPICAL OINTMENT 28GM TUBE. TP SCH (09:42)
[2019-12-05] MEDS: SERTRALINE 50 MG TABLET. PO SCH (09:43)
[2019-12-05] MEDS: VANCOMYCIN 125 MG/2.5 ML ORAL SOLUTION. PO SCH ×3 (09:43→17:26)
[2019-12-05] MEDS: LACTOBACILLUS RHAMNOSUS GG 1 CAPSULE. PO SCH (09:43)
[2019-12-05] MEDS: FUROSEMIDE 20 MG/2 ML VIAL. IVP SCH (09:44)
--- NOTE | 2019-12-05 10:23 | PDOC ---
Infectious Disease Note Subjective Subjective Patient is feeling fine has no complaints ROS ROS No nausea vomiting diarrhea chest pain Vital Sign Vital Signs Vital Signs Date Time Temp Pulse Resp B/P (MAP) Pulse Ox O2 Delivery O2 Flow Rate FiO2 12/05/19 08:09 Room Air 12/05/19 07:00 98.4 77 14 131/62 (85) 99 98.4 Physical Exam PHYSICAL EXAM GENERAL: Up on a commode very comfortable HEENT: Pupils equal and reactive. She has normal conjunctivae. Oral cavity, pharynx is without thrush. NECK: Supple, no JVD. LUNGS: Decreased in the bases. HEART: S1, S2. ABDOMEN: Cronic excoriations, but healing areas as well. Fullness/swelling left side of abdomen extending down to the left groin/hip area Purulent material draining from low mid ant area, STACIE drain is out EXTREMITIES: Without clubbing or cyanosis. She has trace edema. SKIN: Warm to touch without signs of rash. NEUROLOGIC: She is nonfocal, moves all extremities. Right sided CVC line clean Labs Lab Laboratory Tests Test 12/05/19 03:50 White Blood Count 4.4 x10^3/uL (4.0-11.0) Red Blood Count 2.84 x10^6/uL (3.50-5.40) Hemoglobin 8.5 g/dL (12.0-15.5) Hematocrit 25.5 % (36.0-47.0) Mean Corpuscular Volume 90 fL (79-100) Mean Corpuscular Hemoglobin 30 pg (25-35) Mean Corpuscular Hemoglobin Concent 33 g/dL (31-37) Red Cell Distribution Width 18.2 % (11.5-14.5) Platelet Count 365 x10^3/uL (140-400) Neutrophils (%) (Auto) 60 % (31-73) Lymphocytes (%) (Auto) 28 % (24-48) Monocytes (%) (Auto) 3 % (0-9) Eosinophils (%) (Auto) 6 % (0-3) Basophils (%) (Auto) 2 % (0-3) Neutrophils # (Auto) 2.6 x10^3/uL (1.8-7.7) Lymphocytes # (Auto) 1.2 x10^3/uL (1.0-4.8) Monocytes # (Auto) 0.2 x10^3/uL (0.0-1.1) Eosinophils # (Auto) 0.3 x10^3/uL (0.0-0.7) Basophils # (Auto) 0.1 x10^3/uL (0.0-0.2) Sodium Level 137 mmol/L (136-145) Potassium Level 4.5 mmol/L (3.5-5.1) Chloride Level 102 mmol/L (98-107) Carbon Dioxide Level 33 mmol/L (21-32) Anion Gap 2 (6-14) Blood Urea Nitrogen 17 mg/dL (7-20) Creatinine 0.6 mg/dL (0.6-1.0) Estimated GFR (Cockcroft-Gault) 121.8 Glucose Level 73 mg/dL (70-99) Calcium Level 8.3 mg/dL (8.5-10.1) Magnesium Level 1.9 mg/dL (1.8-2.4) Micro Microbiology 11/28/19 Blood Culture - Preliminary, Resulted NO GROWTH AFTER 4 DAYS Objective Assessment Drain leakage. Drain is out Vanc allergy Short gut H/o C-diff H/o Abdominal wall abscess Enterocutaneous fistula. Enterovesicular fistula. Malnutrition. H/o Esophagitis. Anemia Chronic TPN H/o Coagulase-negative staph on blood culture,msse status post line change, repeat blood cultures negative Plan Plan of Care General surgery following F/u labs and cults Pain management per primary Supportive care D/w nursing CT hip unremarkable Patient can be discharged JOSSY TATUM MD Dec 05, 2019 10:23
[2019-12-05] MEDS: TPN PER PHARMACY MC PRN (10:51)
--- NOTE | 2019-12-05 10:53 | NUR ---
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 Height: 5 feet, 4 inches Weight: 38.4 kg Current diet: REGULAR LABS: Sodium: 137 Potassium: 4.5 Chloride: 102 Calcium: 8.3 Corrected Calcium: 10.46 Magnesium: 1.9 CO2: 33 SCr: 0.6 Glucose: 73 Albumin: 1.3 AST: 12 ALT: <6 TPN FORMULA: TPN TYPE: Central Continuous AMINO ACIDS: 90 gm DEXTROSE: 285 gm LIPIDS: 35 gm SODIUM CHLORIDE: 120 mEq SODIUM ACETATE: 120 mEq POTASSIUM ACETATE: 30 mEq POTASSIUM PHOSPHATE: 22 mmol MAGNESIUM: 24 mEq CALCIUM: 10 mEq MULTIPLE VITAMIN: 10 ml TRACE ELEMENTS: 1 ml(s) TPN PLAN: LABS STABLE, NO CHANGE TO TPN. R: Continue TPN Will monitor electrolytes, glucose, and tolerance to TPN. Bharath Brown [facility], 12/05/19 105
[2019-12-05 11:00] VITALS: BP 129/69
--- NOTE | 2019-12-05 11:11 | SNU/HH DC ---
DISCHARGE WITH HOME HEALTH DISCHARGE INFORMATION: Discharge Date: Dec 05, 2019 Final Diagnosis: Problems Medical Problems: (1) Abdominal wall fistula Status: Acute (2) Intractable abdominal pain Status: Acute Condition on Discharge: Stable CODE STATUS: Code Status: Full HOME HEALTH: Face to Face: I certify this patient is under my care and that I, or a nurse practitioner or physician's assistant basketball coach working with me, had a face to face encounter that meets the physician face to face encounter requirements with this patient on [12/05/19]. RN For Eval/Treatment: Yes Physical Therapy For: Evalulation/Treatment Occupational Therapy For: Evaluation/Treatment Pt Meets Homebound Status: Limited distance walking, Other: (TPN) POST DISCHARGE ORDERS: Activity Instructions for Disc: Resume previous activity, Activity as tolerated Weight Bearing Status after Di: As tolerated Bathing Instructions: Shower-keep dressing dry, No Tub Bath until see DIET AFTER DISCHARGE: TPN at 85 cc/hour. same formula as before admission Wound/Incision Care: Reinforce dressing PRN, Routine catheter care CHECKS AFTER DISCHARGE: Checks after discharge: Check blood press - daily, Check your Temp as needed, Weigh Yourself Daily FOLLOW-UP: PCP to follow Home Health: dr. lutz Follow up with: dr. lutz next week DC TO SNF LABS: fax lab results to dr. lutz. fax [phone] Additional Instructions: cbc and cmp and magnesium and phosphorus every wednesday and fax results to dr. lutz. fax [phone] TREATMENT/EQUIPMENT ORDERS: Adaptive Equipment Issued: None CERTIFICATION STATEMENT: Certification Statement: Certification Statement: Based on the above finding, I certify that this patient is confined to the home and needs intermittent retirement care, physical therapy and/or speech therapy, or continues to need occupational therapy.~ This patient is under my care, and I have initiated the establishment of the plan of care.~ This patient will be followed by myself or a community physician who will periodically review the plan of care. Home Meds Active Scripts Hydromorphone Hcl (DILAUDID) 2 Mg Tablet, 1 TAB PO Q6HRS PRN for pain MDD 4 Tablet(s), #30 TAB 0 Refills Prov:BENITA LUTZ MD 07/18/19 Pantoprazole Sodium (PANTOPRAZOLE SODIUM ) 40 Mg Tablet., 40 MG PO DAILYAC for reflux esophagitis, #30 TAB.SR Prov:BENITA LUTZ MD 07/18/19 Acetaminophen (TYLENOL) 325 Mg Tablet, 650 MG PO PRN Q6HRS PRN for MILD PAIN / TEMP, #30 TAB Prov:BENITA LUTZ MD 01/03/19 [Pantoprazole] 40 MG TABLET. No Conflict Check, 40 MG PO DAILYAC for gerd for 30 Days Prov:BENITA LUTZ MD 08/13/18 Zinc Oxide (ZINC OXIDE) 56.7 Gm Oint...g., 1 WANDY TP BID for abdominal skin excoriation, #30 GR Prov:BENITA LUTZ MD 07/11/18 Zolpidem Tartrate (AMBIEN) 5 Mg Tablet, 5 MG PO PRN QHS PRN for INSOMNIA for 30 Days, TAB Prov:BENITA LUTZ MD 06/23/18 [Tpn Per Pharmacy] 1 EACH EACH No Conflict Check, 1 EACH PRN DAILY PRN for SEE COMMENTS TPN at 85cc/hour Prov:BENITA LUTZ MD 06/23/18 Sertraline Hcl (SERTRALINE HCL) 50 Mg Tablet, 50 MG PO DAILY for 30 Days, #30 TAB Prov:BENITA LUTZ MD 01/05/17 Lidocaine (LIDOCAINE) 35.44 Gm Oint...g., 1 WANDY TP BID, #30 Prov:BENITA LUTZ MD 12/18/15 Reported Medications Ondansetron Hcl (ONDANSETRON HCL) 4 Mg Tablet, 4 MG PO PRN Q6HRS PRN for NAUSEA 07/12/19 Lorazepam (LORAZEPAM) 0.5 Mg Tablet, 0.5 MG PO Q6HRS PRN for ANXIETY, TAB 08/31/16 Discontinued Scripts Daptomycin (Daptomycin) 350 Mg Vial, 300 MG IV DAILY for abdminal abscess and bacteremi for 3 Days, #3 EACH Prov:BENITA LUTZ MD 11/04/19 Metronidazole (METRONIDAZOLE) 500 Mg Tablet, 1 TAB PO Q8HRS for c. diff colitis prophylaxis for 14 Days, #42 TAB 0 Refills Prov:BENITA LUTZ MD 11/04/19 BENITA LUTZ MD Dec 05, 2019 11:11
--- NOTE | 2019-12-05 11:12 | NUR ---
This RN called and spoke with pt's daughter, Manjit Miller at [phone] in regards to pt's discharge orders. Manjit stated she would be available at 3230 to pick the pt up.
--- NOTE | 2019-12-05 11:28 | PDOC ---
Subjective: Subjective: Doing better, not sure about going home though. Objective: Objective: D/w nurse - no GI concerns. Vital Signs: Vital Signs Date Time Temp Pulse Resp B/P (MAP) Pulse Ox O2 Delivery O2 Flow Rate FiO2 12/05/19 08:09 Room Air 12/05/19 07:00 98.4 77 14 131/62 (85) 99 98.4 Labs: Laboratory Tests Test 12/05/19 03:50 White Blood Count 4.4 x10^3/uL Red Blood Count 2.84 x10^6/uL Hemoglobin 8.5 g/dL Hematocrit 25.5 % Mean Corpuscular Volume 90 fL Mean Corpuscular Hemoglobin 30 pg Mean Corpuscular Hemoglobin Concent 33 g/dL Red Cell Distribution Width 18.2 % Platelet Count 365 x10^3/uL Neutrophils (%) (Auto) 60 % Lymphocytes (%) (Auto) 28 % Monocytes (%) (Auto) 3 % Eosinophils (%) (Auto) 6 % Basophils (%) (Auto) 2 % Neutrophils # (Auto) 2.6 x10^3/uL Lymphocytes # (Auto) 1.2 x10^3/uL Monocytes # (Auto) 0.2 x10^3/uL Eosinophils # (Auto) 0.3 x10^3/uL Basophils # (Auto) 0.1 x10^3/uL Sodium Level 137 mmol/L Potassium Level 4.5 mmol/L Chloride Level 102 mmol/L Carbon Dioxide Level 33 mmol/L Anion Gap 2 Blood Urea Nitrogen 17 mg/dL Creatinine 0.6 mg/dL Estimated GFR (Cockcroft-Gault) 121.8 Glucose Level 73 mg/dL Calcium Level 8.3 mg/dL Magnesium Level 1.9 mg/dL PE: GEN: NAD - knitting LUNGS: room air NEURO/PSYCH: A & O 3, smiling A/P: Abd wall abscess Chronic fistulae -- DC per primary and ID. Justicifation of Admission Dx: Justifications for Admission: Justification of Admission Dx: Yes MIESHA RICO Dec 05, 2019 11:28
--- NOTE | 2019-12-05 14:01 | NUR ---
SW following. Spoke with RN and reviewed chart. Pt to discharge home today, 12/05/[address] Cisneros. Pt has TPN at home through [facility], ; fax [phone]. Pt was also on services with [facility], ; fax [phone]. SW phoned and faxed clinicals and discharge orders to both [facility] and [facility]. Pt on room air and oral abx. Pt to discharge via transport from family. No further SW needs at this time.
[2019-12-05 15:00] VITALS: BP 136/71
--- NOTE | 2019-12-05 15:43 | PDOC ---
PROGRESS NOTES Subjective Subjective feels better. lab reviewed. smiling. Objective Objective Vital Signs Date Time Temp Pulse Resp B/P (MAP) Pulse Ox O2 Delivery O2 Flow Rate FiO2 12/05/19 11:00 98.2 71 16 129/69 (89) 99 Room Air 98.2 Intake and Output 12/05/19 07:00 Intake Total 535 ml Output Total 30 ml Balance 505 ml Intake Oral 535 ml Drainage Total 30 ml # Voids 6 Physical Exam Abdomen: Normal bowel sounds, Other (EC fistula) Heart: Regular rate, Normal S1, Normal S2 Extremities: No edema General: Alert HEENT: Atraumatic Lungs: Clear to auscultation Neuro: Normal speech Psych/Mental Status: Mental status NL Skin: No rashes Assessment Assessment Problems Medical Problems:abdominal pain better peripheral edema enterocutaneous fistula enterovesical fistula anemia of chronic disease severe protein calorie malnutriton (1) Abdominal wall fistula Status: Acute (2) Intractable abdominal pain Status: Acute Plan Plan of Care dismiss today with home health Comment Review of Relevant I have reviewed the following items lucila (where applicable) has been applied. Labs Laboratory Tests Test 12/04/19 03:05 12/05/19 03:50 White Blood Count 4.7 x10^3/uL (4.0-11.0) 4.4 x10^3/uL (4.0-11.0) Red Blood Count 3.00 x10^6/uL (3.50-5.40) 2.84 x10^6/uL (3.50-5.40) Hemoglobin 9.0 g/dL (12.0-15.5) 8.5 g/dL (12.0-15.5) Hematocrit 27.1 % (36.0-47.0) 25.5 % (36.0-47.0) Mean Corpuscular Volume 90 fL (79-100) 90 fL (79-100) Mean Corpuscular Hemoglobin 30 pg (25-35) 30 pg (25-35) Mean Corpuscular Hemoglobin Concent 33 g/dL (31-37) 33 g/dL (31-37) Red Cell Distribution Width 18.2 % (11.5-14.5) 18.2 % (11.5-14.5) Platelet Count 351 x10^3/uL (140-400) 365 x10^3/uL (140-400) Neutrophils (%) (Auto) 62 % (31-73) 60 % (31-73) Lymphocytes (%) (Auto) 25 % (24-48) 28 % (24-48) Monocytes (%) (Auto) 4 % (0-9) 3 % (0-9) Eosinophils (%) (Auto) 7 % (0-3) 6 % (0-3) Basophils (%) (Auto) 2 % (0-3) 2 % (0-3) Neutrophils # (Auto) 2.9 x10^3/uL (1.8-7.7) 2.6 x10^3/uL (1.8-7.7) Lymphocytes # (Auto) 1.2 x10^3/uL (1.0-4.8) 1.2 x10^3/uL (1.0-4.8) Monocytes # (Auto) 0.2 x10^3/uL (0.0-1.1) 0.2 x10^3/uL (0.0-1.1) Eosinophils # (Auto) 0.3 x10^3/uL (0.0-0.7) 0.3 x10^3/uL (0.0-0.7) Basophils # (Auto) 0.1 x10^3/uL (0.0-0.2) 0.1 x10^3/uL (0.0-0.2) Sodium Level 141 mmol/L (136-145) 137 mmol/L (136-145) Potassium Level 4.5 mmol/L (3.5-5.1) 4.5 mmol/L (3.5-5.1) Chloride Level 104 mmol/L (98-107) 102 mmol/L (98-107) Carbon Dioxide Level 34 mmol/L (21-32) 33 mmol/L (21-32) Anion Gap 3 (6-14) 2 (6-14) Blood Urea Nitrogen 17 mg/dL (7-20) 17 mg/dL (7-20) Creatinine 0.6 mg/dL (0.6-1.0) 0.6 mg/dL (0.6-1.0) Estimated GFR (Cockcroft-Gault) 121.8 121.8 BUN/Creatinine Ratio 28 (6-20) Glucose Level 97 mg/dL (70-99) 73 mg/dL (70-99) Calcium Level 8.3 mg/dL (8.5-10.1) 8.3 mg/dL (8.5-10.1) Phosphorus Level 4.0 mg/dL (2.6-4.7) Magnesium Level 2.0 mg/dL (1.8-2.4) 1.9 mg/dL (1.8-2.4) Total Bilirubin 0.1 mg/dL (0.2-1.0) Aspartate Amino Transf (AST/SGOT) 12 U/L (15-37) Alanine Aminotransferase (ALT/SGPT) < 6 U/L (14-59) Alkaline Phosphatase 118 U/L (46-116) Total Protein 6.4 g/dL (6.4-8.2) Albumin 1.3 g/dL (3.4-5.0) Albumin/Globulin Ratio 0.3 (1.0-1.7) Triglycerides Level 49 mg/dL (0-150) Laboratory Tests Test 12/05/19 03:50 White Blood Count 4.4 x10^3/uL (4.0-11.0) Red Blood Count 2.84 x10^6/uL (3.50-5.40) Hemoglobin 8.5 g/dL (12.0-15.5) Hematocrit 25.5 % (36.0-47.0) Mean Corpuscular Volume 90 fL (79-100) Mean Corpuscular Hemoglobin 30 pg (25-35) Mean Corpuscular Hemoglobin Concent 33 g/dL (31-37) Red Cell Distribution Width 18.2 % (11.5-14.5) Platelet Count 365 x10^3/uL (140-400) Neutrophils (%) (Auto) 60 % (31-73) Lymphocytes (%) (Auto) 28 % (24-48) Monocytes (%) (Auto) 3 % (0-9) Eosinophils (%) (Auto) 6 % (0-3) Basophils (%) (Auto) 2 % (0-3) Neutrophils # (Auto) 2.6 x10^3/uL (1.8-7.7) Lymphocytes # (Auto) 1.2 x10^3/uL (1.0-4.8) Monocytes # (Auto) 0.2 x10^3/uL (0.0-1.1) Eosinophils # (Auto) 0.3 x10^3/uL (0.0-0.7) Basophils # (Auto) 0.1 x10^3/uL (0.0-0.2) Sodium Level 137 mmol/L (136-145) Potassium Level 4.5 mmol/L (3.5-5.1) Chloride Level 102 mmol/L (98-107) Carbon Dioxide Level 33 mmol/L (21-32) Anion Gap 2 (6-14) Blood Urea Nitrogen 17 mg/dL (7-20) Creatinine 0.6 mg/dL (0.6-1.0) Estimated GFR (Cockcroft-Gault) 121.8 Glucose Level 73 mg/dL (70-99) Calcium Level 8.3 mg/dL (8.5-10.1) Magnesium Level 1.9 mg/dL (1.8-2.4) Microbiology 11/28/19 Blood Culture - Final, Complete NO GROWTH AFTER 5 DAYS Medications Current Medications Hydromorphone HCl (Dilaudid) 1 mg PRN Q15MIN PRN IV/SQ PAIN GREATER THAN 3/10 Last administered on 11/28/19at 17:49; Start 11/28/19 at 15:15; Stop 11/29/19 at 12:34; Status DC Piperacillin Sod/ Tazobactam Sod 3.375 gm/Sodium Chloride 50 ml @ 100 mls/hr 1X ONCE IV Last administered on 11/28/19at 15:30; Start 11/28/19 at 15:30; Stop 11/28/19 at 15:59; Status DC Sodium Chloride 1,000 ml @ 1,000 mls/hr 1X ONCE IV Last administered on 11/28/19at 15:38; Start 11/28/19 at 15:15; Stop 11/28/19 at 16:14; Status DC Info (Tpn Per Pharmacy) 1 each PRN DAILY PRN MC SEE COMMENTS Last administered on 12/05/19at 10:51; Start 11/29/19 at 22:00 Linezolid/Dextrose 300 ml @ 300 mls/hr Q12HR IV Last administered on 12/03/19at 09:01; Start 11/28/19 at 18:00; Stop 12/03/19 at 12:59; Status DC Piperacillin Sod/ Tazobactam Sod 3.375 gm/Sodium Chloride 50 ml @ 100 mls/hr Q6HRS IV Last administered on 12/03/19at 12:18; Start 11/29/19 at 00:00; Stop 12/03/19 at 12:59; Status DC Potassium Chloride/Dextrose/ Sod Cl 1,000 ml @ 80 mls/hr [id number] IV Last administered on 11/29/19 07:35; Start 11/28/19 at 16:45; Stop 11/29/19 at 21:59; Status DC Hydromorphone HCl (Dilaudid) 1 mg Q4HRS PRN IV MODERATE PAIN Last administered on 12/05/19 13:37; Start 11/28/19 at 16:45 Zolpidem Tartrate (Ambien) 5 mg PRN QHS PRN PO INSOMNIA Last administered on 11/29/19 23:28; Start 11/28/19 at 16:45 Fluconazole/ Sodium Chloride 100 ml @ 100 mls/hr Q24H IV Last administered on 11/28/19 18:17; Start 11/28/19 at 17:00; Stop 11/29/19 at 09:37; Status DC Lidocaine HCl (Xylocaine 2% Topical 30gm Tube) 1 sang BID TP Last administered on 12/05/19 09:42; Start 11/28/19 at 21:00 Zinc Oxide (Zinc Oxide 20% Topical) 1 sang BID TP Last administered on 12/05/19 09:42; Start 11/28/19 at 21:00 Vancomycin HCl (Vancomycin Oral Solution) 125 mg [id number] PO Last administered on 12/05/19at 13:37; Start 11/28/19 at 17:00 Acetaminophen (Tylenol) 650 mg Q6HRS PRN PO MILD PAIN / TEMP > 100.3'F; Start 11/28/19 at 16:45 Pantoprazole Sodium (Protonix) 40 mg DAILYAC PO Last administered on 11/29/19 06:09; Start 11/29/19 at 07:30; Stop 11/29/19 at 11:34; Status DC Sertraline HCl (Zoloft) 50 mg DAILY PO Last administered on 12/05/19at 09:43; Start 11/29/19 at 09:00 Lorazepam (Ativan) 0.5 mg Q6HRS PRN PO ANXIETY / AGITATION; Start 11/28/19 at 16:45 Ondansetron HCl (Zofran) 4 mg Q6HRS PRN IVP NAUSEA/VOMITING Last administered on 12/01/19at 09:51; Start 11/28/19 at 16:45; Stop 12/01/19 at 11:00; Status DC Diphenhydramine HCl (Benadryl) 25 mg Q6HRS PRN PO ITCHING; Start 11/28/19 at 16:45 Al Hydroxide/Mg Hydroxide (Mylanta Plus Xs) 30 ml PRN Q2HR PRN PO HEARTBURN / GAS Last administered on 11/28/19at 21:31; Start 11/28/19 at 20:45 Hydromorphone HCl (Dilaudid) 2 mg PRN Q4HRS PRN IV SEVERE PAIN Last administered on 12/03/19at 17:55; Start 11/28/19 at 20:45 Fluconazole/ Sodium Chloride 200 ml @ 100 mls/hr Q24H IV Last administered on 12/02/19at 19:01; Start 11/29/19 at 17:00; Stop 12/03/19 at 12:59; Status DC Magnesium Sulfate 50 ml @ 25 mls/hr 1X ONCE IV Last administered on 11/29/19at 10:30; Start 11/29/19 at 10:30; Stop 11/29/19 at 12:29; Status DC Pantoprazole Sodium (PROTONIX VIAL for IV PUSH) 40 mg DAILYAC IVP Last administered on 12/05/19at 08:02; Start 11/30/19 at 07:30 Sodium Chloride 120 meq/Sodium Acetate 110 meq/ Potassium Chloride 30 meq/ Potassium Phosphate 22 mmol/ Magnesium Sulfate 24 meq/Calcium Gluconate 10 meq/ Multivitamins 10 ml/Chromium/ Copper/Manganese/ Seleni/Zn 1 ml/ Total Parenteral Nutrition/Amino Acids/Dextrose/ Fat Emulsion Intravenous 1,920 ml @ 80 mls/hr TPN CONT IV Last administered on 11/29/19at 18:54; Start 11/29/19 at 22:00; Stop 11/30/19 at 21:59; Status DC Sodium Chloride 120 meq/Sodium Acetate 120 meq/ Potassium Acetate 30 meq/Potassium Phosphate 22 mmol/ Magnesium Sulfate 24 meq/Calcium Gluconate 10 meq/ Multivitamins 10 ml/Chromium/ Copper/Manganese/ Seleni/Zn 1 ml/ Total Parenteral Nutrition/Amino Acids/Dextrose/ Fat Emulsion Intravenous 1,920 ml @ 80 mls/hr TPN CONT IV Last administered on 11/30/19at 20:51; Start 11/30/19 at 22:00; Stop 12/01/19 at 21:59; Status DC Ondansetron HCl (Zofran) 8 mg Q6HRS PRN IVP NAUSEA/VOMITING; Start 12/01/19 at 11:00 Sodium Chloride 120 meq/Sodium Acetate 120 meq/ Potassium Acetate 30 meq/Potassium Phosphate 22 mmol/ Magnesium Sulfate 24 meq/Calcium Gluconate 10 meq/ Multivitamins 10 ml/Chromium/ Copper/Manganese/ Seleni/Zn 1 ml/ Total Parenteral Nutrition/Amino Acids/Dextrose/ Fat Emulsion Intravenous 1,920 ml @ 80 mls/hr TPN CONT IV Last administered on 12/01/19at 21:11; Start 12/01/19 at 22:00; Stop 12/02/19 at 21:59; Status DC Sodium Chloride 120 meq/Sodium Acetate 120 meq/ Potassium Acetate 30 meq/Potassium Phosphate 22 mmol/ Magnesium Sulfate 24 meq/Calcium Gluconate 10 meq/ Multivitamins 10 ml/Chromium/ Copper/Manganese/ Seleni/Zn 1 ml/ Total Parenteral Nutrition/Amino Acids/Dextrose/ Fat Emulsion Intravenous 1,920 ml @ 80 mls/hr TPN CONT IV Last administered on 12/02/19at 21:34; Start 12/02/19 at 22:00; Stop 12/03/19 at 21:59; Status DC Furosemide (Lasix) 20 mg DAILY IVP Last administered on 12/05/19at 09:44; Start 12/03/19 at 12:00 Sodium Chloride 120 meq/Sodium Acetate 120 meq/ Potassium Acetate 30 meq/Potassium Phosphate 22 mmol/ Magnesium Sulfate 24 meq/Calcium Gluconate 10 meq/ Multivitamins 10 ml/Chromium/ Copper/Manganese/ Seleni/Zn 1 ml/ Total Parenteral Nutrition/Amino Acids/Dextrose/ Fat Emulsion Intravenous 1,920 ml @ 80 mls/hr TPN CONT IV Last administered on 12/03/19at 22:07; Start 12/03/19 at 22:00; Stop 12/04/19 at 21:59; Status DC Sodium Chloride 120 meq/Sodium Acetate 120 meq/ Potassium Acetate 30 meq/Potassium Phosphate 22 mmol/ Magnesium Sulfate 24 meq/Calcium Gluconate 10 meq/ Multivitamins 10 ml/Chromium/ Copper/Manganese/ Seleni/Zn 1 ml/ Total Parenteral Nutrition/Amino Acids/Dextrose/ Fat Emulsion Intravenous 1,920 ml @ 80 mls/hr TPN CONT IV Last administered on 12/04/19at 20:57; Start 12/04/19 at 22:00; Stop 12/05/19 at 21:59 Lactobacillus Rhamnosus (Culturelle) 1 cap BID PO Last administered on 12/05/19at 09:43; Start 12/04/19 at 21:00 Sodium Chloride 120 meq/Sodium Acetate 120 meq/ Potassium Acetate 30 meq/Potassium Phosphate 22 mmol/ Magnesium Sulfate 24 meq/Calcium Gluconate 10 meq/ Multivitamins 10 ml/Chromium/ Copper/Manganese/ Seleni/Zn 1 ml/ Total Parenteral Nutrition/Amino Acids/Dextrose/ Fat Emulsion Intravenous 1,920 ml @ 80 mls/hr TPN CONT IV ; Start 12/05/19 at 22:00; Stop 12/06/19 at 21:59 Active Scripts Active Dilaudid (Hydromorphone Hcl) 2 Mg Tablet 1 Tab PO Q6HRS PRN MDD 4 Tablet(s) Pantoprazole Sodium (Pantoprazole Sodium) 40 Mg Tablet.dr 40 Mg PO DAILYAC Tylenol (Acetaminophen) 325 Mg Tablet 650 Mg PO PRN Q6HRS PRN [Pantoprazole] 40 MG Tablet.dr 40 Mg PO DAILYAC 30 Days Zinc Oxide 56.7 Gm Oint...g. 1 Sang TP BID Ambien (Zolpidem Tartrate) 5 Mg Tablet 5 Mg PO PRN QHS PRN 30 Days [Tpn Per Pharmacy] 1 EACH Each 1 Each MC PRN DAILY PRN TPN at 85cc/hour Sertraline Hcl 50 Mg Tablet 50 Mg PO DAILY 30 Days Lidocaine 35.44 Gm Oint...g. 1 Sang TP BID Reported Ondansetron Hcl 4 Mg Tablet 4 Mg PO PRN Q6HRS PRN Lorazepam 0.5 Mg Tablet 0.5 Mg PO Q6HRS PRN Vitals/I & O Vital Sign - Last 24 Hours 12/04/19 12/04/19 12/04/19 12/04/19 17:42 18:27 19:00 20:00 Temp 98.0 98.0 Pulse 75 Resp 18 B/P (MAP) 132/73 (92) Pulse Ox 100 O2 Delivery Room Air Room Air Room Air Room Air 12/04/19 12/04/19 12/04/19 12/05/19 21:47 22:17 23:00 03:00 Temp 98.3 98.3 98.3 98.3 Pulse 81 82 Resp 18 18 B/P (MAP) 133/68 (89) 146/90 (108) Pulse Ox 97 97 O2 Delivery Room Air Room Air Room Air Room Air 12/05/19 12/05/19 12/05/19 12/05/19 03:21 03:51 07:00 08:09 Temp 98.4 98.4 Pulse 77 Resp 14 B/P (MAP) 131/62 (85) Pulse Ox 99 O2 Delivery Room Air Room Air Room Air Room Air 12/05/19 11:00 Temp 98.2 98.2 Pulse 71 Resp 16 B/P (MAP) 129/69 (89) Pulse Ox 99 O2 Delivery Room Air Intake and Output 12/04/19 12/04/19 12/05/19 15:00 23:00 07:00 Intake Total 220 ml 265 ml 50 ml Output Total 30 ml Balance 190 ml 265 ml 50 ml Nutrition Consultation Dietary Evaluation: Recommendations by RD: Dietary education by RD, PPN/TPN Comments: continue with home TPN and diet as tolerated Expected Outcomes/Goals: to meet >75% est nutr needs Malnutrition Findings: Muscle Mass (Severe): Severe Depletion Body Fat Depletion (Non Severe: Mod to Severe Weight Status: Underweight BENITA LUTZ MD Dec 05, 2019 15:43
--- NOTE | 2019-12-05 15:49 | PDOC ---
Provider Note Provider Note discharge summary dictated # [id number] Justicifation of Admission Dx: Justifications for Admission: Justification of Admission Dx: Yes BENITA LUTZ MD Dec 05, 2019 15:49
--- NOTE | 2019-12-05 16:14 | DS ---
DATE OF DISCHARGE: 12/05/2019 CONSULTANTS: Include Dr. Rigoberto Ovalle and Dr. Almanza and Dr. Garcia Suggs. FINAL DIAGNOSES: 1. Fever, which resolved. Blood cultures were negative. 2. Abdominal pain, most likely secondary to adhesions. 3. Peripheral edema. 4. Enterocutaneous fistula. 5. Enterovesical fistula. 6. Anemia of chronic disease. 7. Severe protein-calorie malnutrition. PROCEDURE: Removal of STACIE drain by the interventional radiologist. HOSPITAL COURSE: The patient is a 64-year-old -[place] female with a history of enterocutaneous fistula, maintained on home total parenteral nutrition, who [facility] when she had her abdominal abscesses treated with a percutaneous drain and IV antibiotics. She also had a Staphylococcus coagulase negative bacteremia, suspected due to infected PICC line, which was changed by guidewire as this is the last site for a PICC that she has. The patient was treated with IV daptomycin and oral Flagyl and she received IV daptomycin for 3 days after dismissal and Flagyl t.i.d. for 14 days after dismissal and is still maintained on TPN. In last couple of days, she developed some diffuse abdominal pain and back pain and also had a fever of 103 degrees she said at home, prompting admission to the [facility]. She still has a STACIE drain in place. She [facility] to the [facility]. White count was normal at 6.6. CAT scan of the abdomen and pelvis without IV contrast showed resolution of the bilateral pleural effusions, but she did have some soft tissue fluid and mildly distended small bowel loops without any evidence of bowel obstruction. She had a left ventral abdominal wall abscess that was decompressed during her last hospital stay. At this time, a CAT scan showed no residual fluid. She still has a STACIE drain in place. She was admitted to the hospital. During her hospital course, she did not spike any fever. She completed a course of IV antibiotics. Blood cultures were negative. She had been seen by Dr. Garcia Suggs and Dr. Almanza for Infectious Disease and Dr. Ovalle for GI and Dr. Franklin for General Surgery. She was seen by interventional radiologist and noted no evidence of abdominal wall abscess. The STACIE drain was removed. Her abdominal pain improved. For peripheral edema, she did receive some Lasix 20 mg IV for a few days. She will be dismissed to home with home health, receive TPN, have weekly blood tests, CBC, CMP, magnesium and phosphorus every Wednesday, which will be faxed to Dr. Cisneros and she will be dismissed on Dilaudid 2 mg p.o. q.i.d. p.r.n. for severe pain, lidocaine topical ointment followed by zinc oxide topically b.i.d. to the abdominal wall, lorazepam 0.5 mg every 6 hours p.r.n. for anxiety, Protonix 40 mg every day, sertraline 50 mg every day, Tylenol 650 mg every 6 hours p.r.n., Zofran 4 mg p.o. every 6 hours p.r.n., Ambien 5 mg at bedtime p.r.n. and she will make an appointment to see Dr. Cisneros in the office next week. Her abdominal pain did improve. BENITA CISNEROS MD DR: [id number]/jd JOB#: [id number] / [id number]
--- NOTE | 2019-12-05 18:34 | NUR ---
Pt left unit at 1815 by wheelchair via private vehicle with daughter. Pt's central line remains in place for at home TPN infusion. VSS. Discharge paperwork discussed with pt and daughter. Belongings returned to pt at time of discharge.
[2019-12-05] MEDS ORDERED: DEXTROSE 70% IV SCH ×11 (22:00)
[2019-12-05] MEDS ORDERED: TOTAL PARENTERAL NUTRITION IV SCH ×11 (22:00)
[2019-12-05] MEDS ORDERED: [UNRECOGNIZED DRUG - OTHER] IV SCH ×11 (22:00)
[2019-12-05] MEDS ORDERED: AMINO ACID IV SCH ×11 (22:00)
== END 2019-12-05 18:36 | disposition home health service (06) | DRG 393 ==
LOC: ER 14:38 → 6 SOUTH 16:45
PROVIDERS: ADMIT Internal Medicine; ATTEND Internal Medicine
PROC: 0WPFX0Z Removal of Drainage Device from Abdominal Wall, External Approach (ICD-10-PCS; principal; 2019-11-29)
DX: K66.0 Peritoneal adhesions (postprocedural) (postinfection) (principal); K65.1 Peritoneal abscess; E43 Unspecified severe protein-calorie malnutrition; K63.2 Fistula of intestine; N32.1 Vesicointestinal fistula; B37.81 Candidal esophagitis; G72.81 Critical illness myopathy; N39.0 Urinary tract infection, site not specified; C53.9 Malignant neoplasm of cervix uteri, unspecified; D63.8 Anemia in other chronic diseases classified elsewhere; E03.9 Hypothyroidism, unspecified; E83.42 Hypomagnesemia; F41.9 Anxiety disorder, unspecified; I12.9 Hypertensive chronic kidney disease with stage 1 through stage 4 chronic kidney disease, or unspecified chronic kidney disease; K27.9 Peptic ulcer, site unspecified, unspecified as acute or chronic, without hemorrhage or perforation; K57.90 Diverticulosis of intestine, part unspecified, without perforation or abscess without bleeding; N18.9 Chronic kidney disease, unspecified; Z79.899 Other long term (current) drug therapy; Z82.49 Family history of ischemic heart disease and other diseases of the circulatory system; Z85.41 Personal history of malignant neoplasm of cervix uteri; Z86.19 Personal history of other infectious and parasitic diseases; Z86.718 Personal history of other venous thrombosis and embolism; Z87.11 Personal history of peptic ulcer disease; Z87.19 Personal history of other diseases of the digestive system; Z88.1 Allergy status to other antibiotic agents; Z90.49 Acquired absence of other specified parts of digestive tract; Z90.710 Acquired absence of both cervix and uterus; F32.9 Major depressive disorder, single episode, unspecified; G89.29 Other chronic pain; K21.9 Gastro-esophageal reflux disease without esophagitis; M19.90 Unspecified osteoarthritis, unspecified site; K58.9 Irritable bowel syndrome, unspecified; Y84.8 Other medical procedures as the cause of abnormal reaction of the patient, or of later complication, without mention of misadventure at the time of the procedure
CPT/HCPCS: 36415; 71045; 73700; 74176; 76881; 80048; 80053; 81001; 83605; 83690; 83735; 84100; 84478; 84484; 85025; 87040; 93005; 96365; 96366; 96376; 99285; C9113; J0610; J1170; J1450; J1940; J2020; J2405; J2543; J3475; J3480; J3490; J7030; P9612; 97110-GP; 97116-GP; 97530-GO; 97530-GP; 97535-GO; G0378

== ENCOUNTER 2019-12-16 17:34 | Inpatient (IN) | payer MEDICARE ==
[~2019-12-16] VITALS: Ht 154.9 cm; Wt 48.9 kg
[2019-12-16] MEDS ORDERED: ONDANSETRON PF 4 MG/2 ML VIAL. IVP ONE (18:45)
[2019-12-16] MEDS ORDERED: IV NORMAL SALINE 1000ML BAG 1,000 ML IV ONE (18:45)
[2019-12-16] MEDS ORDERED: HYDROmorphone 2 MG/ML VIAL IV ONE (18:45)
[2019-12-16 19:43] LABS: BASO # 0.1 x10^3/uL (0.0-0.2); BASO % 1 % (0-3); EOS # 0.2 x10^3/uL (0.0-0.7); EOS % 3 % (0-3); HEMATOCRIT 27.8 % (36.0-47.0); HEMOGLOBIN 9.3 g/dL (12.0-15.5); LYMPH # 1.1 x10^3/uL (1.0-4.8); LYMPH % 15 % (24-48); MEAN CORPUSCULAR HEMOGLOBIN 30 pg (25-35); MEAN CORPUSCULAR HGB CONC 34 g/dL (31-37); MEAN CORPUSCULAR VOLUME 89 fL (79-100); MONO # 0.7 x10^3/uL (0.0-1.1); MONO % 10 % (0-9); NEUT # 5.2 x10^3/uL (1.8-7.7); NEUT % 71 % (31-73); PLATELET COUNT 636 x10^3/uL (140-400); RED BLOOD COUNT 3.13 x10^6/uL (3.50-5.40); RED CELL DISTRIBUTION WIDTH 18.4 % (11.5-14.5); WHITE BLOOD COUNT 7.3 x10^3/uL (4.0-11.0)
[2019-12-16 19:54] LABS: ANION GAP 10 (6-14); BLOOD UREA NITROGEN 14 mg/dL (7-20); BUN/CREATININE RATIO 20 (6-20); CALCIUM 8.5 mg/dL (8.5-10.1); CARBON DIOXIDE 20 mmol/L (21-32); CHLORIDE 102 mmol/L (98-107); CREATININE 0.7 mg/dL (0.6-1.0); GFR 101.9; GLUCOSE 78 mg/dL (70-99); POTASSIUM 4.6 mmol/L (3.5-5.1); SODIUM 132 mmol/L (136-145)
[2019-12-16 20:08] LABS: ALBUMIN 1.8 g/dL (3.4-5.0); ALBUMIN/GLOBULIN RATIO 0.3 (1.0-1.7); ALK PHOS 104 U/L (46-116); AST (SGOT) 13 U/L (15-37); TOTAL BILIRUBIN 0.3 mg/dL (0.2-1.0); TOTAL PROTEIN 7.5 g/dL (6.4-8.2)
[2019-12-16 20:09] LABS: ALT (SGPT) < 6 U/L (14-59)
--- NOTE | 2019-12-16 20:11 | PHYS DOC ---
Past Medical History Past Medical History: Anxiety, Cancer, Diverticulitis, DVT, Hypertension, UTI, Other Additional Past Medical Histor: abd pain,septicemia,Vesicoenteric fistula,cervical CA,blood clot in [place] Past Surgical History: Hysterectomy, Other Additional Past Surgical Histo: bowel resection,ab fistula,BILAT HIP Smoking Status: Never Smoker Alcohol Use: None Drug Use: None General Adult EDM: Chief Complaint: ABSCESS HPI: HPI: Patient is a 64 year old female presents to the ED with a chief complaint of fever, abdominal pain and abscess in her abdomen. Patient and her daughter state that patient has history of multiple surgeries due to fistulas in her abdominal wall. Patient was last discharged from [facility] on December 05, 2019. At that time she was admitted and Dr. Suggs was infectious doctor also saw her. Patient states that she had a drain that was removed but now there is increased drainage and odor and erythema to the abdominal wall. Patient also complains of subjective fevers. Review of Systems: Review of Systems: Constitutional: Denies fever or chills. [] Eyes: Denies change in visual acuity. [] HENT: Denies nasal congestion or sore throat. [] Respiratory: Denies cough or shortness of breath. [] Cardiovascular: Denies chest pain or edema. [] GI: Complains of abdominal wall tenderness, erythema, warmth [] : Denies dysuria. [] Musculoskeletal: Denies back pain or joint pain. [] Neurologic: Denies headache, focal weakness or sensory changes. [] Heart Score: Risk Factors: Risk Factors: DM, Current or recent (<one month) smoker, HTN, HLP, family history of CAD, obesity. Risk Scores: Score 0 - 3: 2.5% MACE over next 6 weeks - Discharge Home Score 4 - 6: 20.3% MACE over next 6 weeks - Admit for Clinical Observation Score 7 - 10: 72.7% MACE over next 6 weeks - Early Invasive Strategies Current Medications: Current Medications Medications (Trade) Dose Ordered Sig/Alex Start Time Stop Time Status Last Admin Dose Admin Hydromorphone HCl (Dilaudid) 1 mg 1X ONCE 12/16/19 18:45 12/16/19 18:46 DC 12/16/19 18:56 1 MG Ondansetron HCl (Zofran) 4 mg 1X ONCE 12/16/19 18:45 12/16/19 18:46 DC 12/16/19 18:56 4 MG Sodium Chloride 1,000 ml @ 1,000 mls/hr 1X ONCE 12/16/19 18:45 12/16/19 19:44 DC 12/16/19 19:47 1,000 MLS/HR Allergies: Allergies: Allergies Coded Allergies Type Severity Reaction Last Updated Verified Iodinated Contrast Media Allergy Severe Anaphylaxis 11/08/19 Yes vancomycin Allergy Severe Swelling 11/08/19 Yes adhesive tape Allergy Intermediate Rash 11/08/19 Yes silver Allergy Intermediate Rash, Tegaderm film, can have on abd but no where else 11/08/19 Yes codeine Adverse Reaction Severe Nausea and Vomiting 11/08/19 Yes Physical Exam: PE: Constitutional: Well developed, well nourished, no acute distress, non-toxic appearance. [] HENT: Normocephalic, atraumatic Eyes: EOMI Neck: Normal range of motion, Supple Cardiovascular:Heart rate regular rhythm Lungs & Thorax: Bilateral breath sounds clear to auscultation [] Abdomen: Erythema, warmth, tenderness to the previous surgical area in her abdomen, malodorous discharge present Extremities: No tenderness, ROM intact Neurologic: Alert and oriented X 3 Current Patient Data: Labs: Laboratory Tests Test 12/16/19 19:30 White Blood Count 7.3 x10^3/uL (4.0-11.0) Red Blood Count 3.13 x10^6/uL (3.50-5.40) L Hemoglobin 9.3 g/dL (12.0-15.5) L Hematocrit 27.8 % (36.0-47.0) L Mean Corpuscular Volume 89 fL (79-100) Mean Corpuscular Hemoglobin 30 pg (25-35) Mean Corpuscular Hemoglobin Concent 34 g/dL (31-37) Red Cell Distribution Width 18.4 % (11.5-14.5) H Platelet Count 636 x10^3/uL (140-400) H Neutrophils (%) (Auto) 71 % (31-73) Lymphocytes (%) (Auto) 15 % (24-48) L Monocytes (%) (Auto) 10 % (0-9) H Eosinophils (%) (Auto) 3 % (0-3) Basophils (%) (Auto) 1 % (0-3) Neutrophils # (Auto) 5.2 x10^3/uL (1.8-7.7) Lymphocytes # (Auto) 1.1 x10^3/uL (1.0-4.8) Monocytes # (Auto) 0.7 x10^3/uL (0.0-1.1) Eosinophils # (Auto) 0.2 x10^3/uL (0.0-0.7) Basophils # (Auto) 0.1 x10^3/uL (0.0-0.2) Sodium Level 132 mmol/L (136-145) L Potassium Level 4.6 mmol/L (3.5-5.1) Chloride Level 102 mmol/L (98-107) Carbon Dioxide Level 20 mmol/L (21-32) L Anion Gap 10 (6-14) Blood Urea Nitrogen 14 mg/dL (7-20) Creatinine 0.7 mg/dL (0.6-1.0) Estimated GFR (Cockcroft-Gault) 101.9 BUN/Creatinine Ratio 20 (6-20) Glucose Level 78 mg/dL (70-99) Calcium Level 8.5 mg/dL (8.5-10.1) Total Bilirubin Pending Aspartate Amino Transferase (AST) Pending Alanine Aminotransferase (ALT) Pending Alkaline Phosphatase Pending Total Protein Pending Albumin Pending Albumin/Globulin Ratio Pending Laboratory Tests 12/16/19 19:30 Laboratory Tests 12/16/19 19:30 Vital Signs: Vital Signs Date Time Temp Pulse Resp B/P (MAP) Pulse Ox O2 Delivery O2 Flow Rate FiO2 12/16/19 18:56 19 100 Room Air 12/16/19 17:56 99.4 106 105/65 (78) 99.4 EKG: EKG: [] Radiology/Procedures: Radiology/Procedures: [] Course & Med Decision Making: Course & Med Decision Making Pertinent Labs reviewed. (See chart for details) Labs show no elevation of WBC. Blood cultures and wound culture sent. Patient will need to be admitted for IV antibiotics. Discussed case with Dr. Tomlinson who accepts admission. I discussed results and plan of care with patient and family. Terri Disclaimer: Terri Disclaimer: This electronic medical record was generated, in whole or in part, using a voice recognition dictation system. Departure Departure Impression: Primary Impression: Abdominal wall abscess Additional Impression: Abdominal wall cellulitis Disposition: 09 ADMITTED INPATIENT Admitting Physician: Roderick Cisneros Condition: GOOD Referrals: RODERICK CISNEROS MD (PCP) Justicifation of Admission Dx: Justifications for Admission: Justification of Admission Dx: Yes VANDA GALAN DO Dec 16, 2019 20:10
[2019-12-16] MEDS ORDERED: ONDANSETRON PF 4 MG/2 ML VIAL. IV PRN (20:15)
[2019-12-16] MEDS ORDERED: IV DEXTROSE 5% - 0.9 % NACL 1,000 ML IV ONE (20:15)
[2019-12-16] MEDS ORDERED: PIPERACILLIN/TAZOBACTAM 3.375 GM in IV NORMAL SALINE 50ML 50 ML IV ONE (20:30)
[2019-12-16] MEDS ORDERED: NEOMY/BACITR/POLYMYXIN OINT PACKET. TP ONE (20:36)
--- NOTE | 2019-12-16 22:21 | NUR ---
Pt. just arrived from ED via bed w/ abdominal wall cellulitis. She is A/O x4 and will make her needs known.
[2019-12-16] MEDS: ZOLPIDEM 5 MG TABLET. PO SCH (22:44)
[2019-12-16] MEDS: HYDROmorphone 2 MG/ML VIAL IV PRN (23:05)
[2019-12-16 23:47] VITALS: BP 138/66
[2019-12-17] VITALS (7 sets, daily range): BP systolic 109–181; BP diastolic 60–95
[2019-12-17] MEDS: PIPERACILLIN/TAZOBACTAM 3.375 GM in IV NORMAL SALINE 50ML 50 ML IV SCH ×4 (01:32→17:54)
[2019-12-17] MEDS: HYDROmorphone 2 MG/ML VIAL IV PRN ×5 (03:44→20:41)
--- NOTE | 2019-12-17 06:27 | NUR ---
Notified Dr. Craig who is on-call for Dr. Antoine Suggs directly about consult. NNO
--- NOTE | 2019-12-17 06:28 | NUR ---
Notified Dr. Tomlinson's answering service about consult.
--- NOTE | 2019-12-17 08:29 | PDOC2 ---
CONSULT Date of Consult Date of Consult DATE: 12/17/19 TIME: 08:25 Reason for Consult Reason for Consult: Abdominal wall cellulitis with enterocutaneous fistula Referring Physician Referring Physician: Blayne Identification/Chief Complaint Chief Complaint Abdominal pain with drainage Source Source: Chart review, Patient History of Present Illness Reason for Visit: 64-year-old female well-known to the surgical service who has had enterocutaneous fistulas and multiple abdominal wall abscesses. She has a hostile abdomen poor surgical candidate. She states that she has been having some more drainage and increased pain on her abdomen. She recently had drain removed that had resolved a subcutaneous abscess. She currently is afebrile Past Medical History Cardiovascular: HTN Pulmonary: No pertinent hx CENTRAL NERVOUS SYSTEM: Other GI: Diverticulosis, GERD, Gastritis, Irritable bowel disease, Peptic Ulcer disease, Other Heme/Onc: Anemia NOS, Cancer, Other Hepatobiliary: No pertinent hx Psych: Anxiety, Depression Musculoskeletal: Osteoarthritis Rheumatologic: No pertinent hx Infectious disease: Other Renal/: Acute renal failure Endocrine: Hypothyroidism Past Surgical History Past Surgical History: Hysterectomy, Colon Resection, Other Family History Family History: Hypertension Social History ALCOHOL: none Drugs: None Lives: with Family Current Medications Current Medications Current Medications Hydromorphone HCl (Dilaudid) 1 mg 1X ONCE IV Last administered on 12/16/19at 18:56; Start 12/16/19 at 18:45; Stop 12/16/19 at 18:46; Status DC Ondansetron HCl (Zofran) 4 mg 1X ONCE IVP Last administered on 12/16/19at 18:56; Start 12/16/19 at 18:45; Stop 12/16/19 at 18:46; Status DC Sodium Chloride 1,000 ml @ 1,000 mls/hr 1X ONCE IV Last administered on 12/16/19at 19:47; Start 12/16/19 at 18:45; Stop 12/16/19 at 19:44; Status DC Ondansetron HCl (Zofran) 4 mg PRN Q8HRS PRN IV NAUSEA/VOMITING; Start 12/16/19 at 20:15; Stop 12/17/19 at 20:14 Dextrose/Sodium Chloride 1,000 ml @ 75 mls/hr 1X ONCE IV Last administered on 12/16/19at 21:41; Start 12/16/19 at 20:15; Stop 12/17/19 at 09:34 Hydromorphone HCl (Dilaudid) 2 mg PRN Q4HRS PRN IV PAIN Last administered on 12/17/19at 08:06; Start 12/16/19 at 20:15 Zolpidem Tartrate (Ambien) 5 mg QHS PO Last administered on 12/16/19at 22:44; Start 12/16/19 at 21:00 Linezolid/Dextrose 300 ml @ 300 mls/hr Q12HR IV Last administered on 12/17/19at 08:06; Start 12/17/19 at 09:00 Piperacillin Sod/ Tazobactam Sod 3.375 gm/Sodium Chloride 50 ml @ 100 mls/hr Q6HRS IV Last administered on 12/17/19at 06:09; Start 12/17/19 at 01:00 Linezolid/Dextrose 300 ml @ 300 mls/hr ONCE ONCE IV Last administered on 12/16/19at 22:43; Start 12/16/19 at 21:00; Stop 12/16/19 at 21:59; Status DC Piperacillin Sod/ Tazobactam Sod 3.375 gm/Sodium Chloride 50 ml @ 100 mls/hr ONCE ONCE IV Last administered on 12/16/19at 20:46; Start 12/16/19 at 20:30; Stop 12/16/19 at 20:59; Status DC Neomycin/ Polymyxin/ Bacitracin (Triple Antibiotic Ointment) 1 pkt STK-MED ONCE TP ; Start 12/16/19 at 20:36; Stop 12/16/19 at 20:37; Status DC Active Scripts Active Dilaudid (Hydromorphone Hcl) 2 Mg Tablet 1 Tab PO Q6HRS PRN MDD 4 Tablet(s) Pantoprazole Sodium (Pantoprazole Sodium) 40 Mg Tablet.dr 40 Mg PO DAILYAC Tylenol (Acetaminophen) 325 Mg Tablet 650 Mg PO PRN Q6HRS PRN [Pantoprazole] 40 MG Tablet.dr 40 Mg PO DAILYAC 30 Days Zinc Oxide 56.7 Gm Oint...g. 1 Sang TP BID Ambien (Zolpidem Tartrate) 5 Mg Tablet 5 Mg PO PRN QHS PRN 30 Days [Tpn Per Pharmacy] 1 EACH Each 1 Each MC PRN DAILY PRN TPN at 85cc/hour Sertraline Hcl 50 Mg Tablet 50 Mg PO DAILY 30 Days Lidocaine 35.44 Gm Oint...g. 1 Sang TP BID Reported Ondansetron Hcl 4 Mg Tablet 4 Mg PO PRN Q6HRS PRN Lorazepam 0.5 Mg Tablet 0.5 Mg PO Q6HRS PRN Allergies Allergies: Coded Allergies: Iodinated Contrast Media (Verified Allergy, Severe, Anaphylaxis, 11/08/19) PT HAS BEEN PREMEDICATED BEFORE WITH NO PROBLEMS, 6--. vancomycin (Verified Allergy, Severe, Swelling, 11/08/19) Has tolerated PO vancomycin adhesive tape (Verified Allergy, Intermediate, Rash, 11/08/19) silver (Verified Allergy, Intermediate, Rash, Tegaderm film, can have on abd but no where else, 11/08/19) codeine (Verified Adverse Reaction, Severe, Nausea and Vomiting, 11/08/19) ROS Gastrointestinal: Yes Abdominal Pain Physical Exam General: Alert, Oriented X3, Cooperative, mild distress HEENT: Atraumatic Lungs: Clear to auscultation, Normal air movement Heart: Regular rate, No murmurs Abdomen: Normal bowel sounds, Soft, Other (Diffusely tender to palpation lower abdomen 2 cm open wound left lower quadrant good granulation tissue generalized erythema on the lower abdomen) Extremities: No edema Skin: Other (Lower abdominal skin with some moisture due to drainage EC fistula minimal erythema) Vitals VITALS Vital Signs Date Time Temp Pulse Resp B/P (MAP) Pulse Ox O2 Delivery O2 Flow Rate FiO2 12/17/19 07:41 98.2 74 18 111/61 (78) 96 Room Air 98.2 Labs Labs Laboratory Tests Test 12/16/19 19:30 White Blood Count 7.3 x10^3/uL (4.0-11.0) Red Blood Count 3.13 x10^6/uL (3.50-5.40) Hemoglobin 9.3 g/dL (12.0-15.5) Hematocrit 27.8 % (36.0-47.0) Mean Corpuscular Volume 89 fL (79-100) Mean Corpuscular Hemoglobin 30 pg (25-35) Mean Corpuscular Hemoglobin Concent 34 g/dL (31-37) Red Cell Distribution Width 18.4 % (11.5-14.5) Platelet Count 636 x10^3/uL (140-400) Neutrophils (%) (Auto) 71 % (31-73) Lymphocytes (%) (Auto) 15 % (24-48) Monocytes (%) (Auto) 10 % (0-9) Eosinophils (%) (Auto) 3 % (0-3) Basophils (%) (Auto) 1 % (0-3) Neutrophils # (Auto) 5.2 x10^3/uL (1.8-7.7) Lymphocytes # (Auto) 1.1 x10^3/uL (1.0-4.8) Monocytes # (Auto) 0.7 x10^3/uL (0.0-1.1) Eosinophils # (Auto) 0.2 x10^3/uL (0.0-0.7) Basophils # (Auto) 0.1 x10^3/uL (0.0-0.2) Sodium Level 132 mmol/L (136-145) Potassium Level 4.6 mmol/L (3.5-5.1) Chloride Level 102 mmol/L (98-107) Carbon Dioxide Level 20 mmol/L (21-32) Anion Gap 10 (6-14) Blood Urea Nitrogen 14 mg/dL (7-20) Creatinine 0.7 mg/dL (0.6-1.0) Estimated GFR (Cockcroft-Gault) 101.9 BUN/Creatinine Ratio 20 (6-20) Glucose Level 78 mg/dL (70-99) Lactic Acid Level 1.1 mmol/L (0.4-2.0) Calcium Level 8.5 mg/dL (8.5-10.1) Total Bilirubin 0.3 mg/dL (0.2-1.0) Aspartate Amino Transf (AST/SGOT) 13 U/L (15-37) Alanine Aminotransferase (ALT/SGPT) < 6 U/L (14-59) Alkaline Phosphatase 104 U/L (46-116) Total Protein 7.5 g/dL (6.4-8.2) Albumin 1.8 g/dL (3.4-5.0) Albumin/Globulin Ratio 0.3 (1.0-1.7) Laboratory Tests Test 12/16/19 19:30 White Blood Count 7.3 x10^3/uL (4.0-11.0) Red Blood Count 3.13 x10^6/uL (3.50-5.40) Hemoglobin 9.3 g/dL (12.0-15.5) Hematocrit 27.8 % (36.0-47.0) Mean Corpuscular Volume 89 fL (79-100) Mean Corpuscular Hemoglobin 30 pg (25-35) Mean Corpuscular Hemoglobin Concent 34 g/dL (31-37) Red Cell Distribution Width 18.4 % (11.5-14.5) Platelet Count 636 x10^3/uL (140-400) Neutrophils (%) (Auto) 71 % (31-73) Lymphocytes (%) (Auto) 15 % (24-48) Monocytes (%) (Auto) 10 % (0-9) Eosinophils (%) (Auto) 3 % (0-3) Basophils (%) (Auto) 1 % (0-3) Neutrophils # (Auto) 5.2 x10^3/uL (1.8-7.7) Lymphocytes # (Auto) 1.1 x10^3/uL (1.0-4.8) Monocytes # (Auto) 0.7 x10^3/uL (0.0-1.1) Eosinophils # (Auto) 0.2 x10^3/uL (0.0-0.7) Basophils # (Auto) 0.1 x10^3/uL (0.0-0.2) Sodium Level 132 mmol/L (136-145) Potassium Level 4.6 mmol/L (3.5-5.1) Chloride Level 102 mmol/L (98-107) Carbon Dioxide Level 20 mmol/L (21-32) Anion Gap 10 (6-14) Blood Urea Nitrogen 14 mg/dL (7-20) Creatinine 0.7 mg/dL (0.6-1.0) Estimated GFR (Cockcroft-Gault) 101.9 BUN/Creatinine Ratio 20 (6-20) Glucose Level 78 mg/dL (70-99) Lactic Acid Level 1.1 mmol/L (0.4-2.0) Calcium Level 8.5 mg/dL (8.5-10.1) Total Bilirubin 0.3 mg/dL (0.2-1.0) Aspartate Amino Transf (AST/SGOT) 13 U/L (15-37) Alanine Aminotransferase (ALT/SGPT) < 6 U/L (14-59) Alkaline Phosphatase 104 U/L (46-116) Total Protein 7.5 g/dL (6.4-8.2) Albumin 1.8 g/dL (3.4-5.0) Albumin/Globulin Ratio 0.3 (1.0-1.7) Assessment/Plan Assessment/Plan Lower abdominal skin excoriation from moisture chronic ongoing cellulitis no palpable abscess or fluctuant areas We will try Bactroban cream to lower abdomen for skin protection and treatment of cellulitis as well as her IV antibiotics ANDERSON LOPEZ MD Dec 17, 2019 08:29
[2019-12-17] MEDS: MUPIROCIN 2 % NASAL OINTMENT 22GM TUBE. TP SCH ×2 (08:38→20:43)
[2019-12-17] MEDS ORDERED: LORazepam 0.5 MG TABLET PO PRN (10:15)
[2019-12-17] MEDS ORDERED: ACETAMINOPHEN 325 MG TABLET. PO PRN (10:15)
[2019-12-17] MEDS ORDERED: IV DEXTROSE 5 %-0.45 % NACL 1,000 ML IV SCH (10:15)
[2019-12-17] MEDS ORDERED: ONDANSETRON ODT 4 MG TAB.RAPDIS. PO PRN (10:15)
--- NOTE | 2019-12-17 10:35 | PDOC ---
Provider Note Provider Note history and physical dictated # [id number] Justicifation of Admission Dx: Justifications for Admission: Justification of Admission Dx: Yes BENITA LUTZ MD Dec 17, 2019 10:35
[2019-12-17] MEDS: LIDOCAINE 2% TOPICAL JELLY 30GM TUBE. TP SCH ×2 (10:45→20:42)
[2019-12-17] MEDS: SERTRALINE 50 MG TABLET. PO SCH (10:45)
[2019-12-17] MEDS: ZINC OXIDE 20% TOPICAL OINTMENT 28GM TUBE. TP SCH ×2 (10:45→20:42)
[2019-12-17] MEDS: PANTOPRAZOLE 40 MG TABLET.DR. PO SCH (10:45)
[2019-12-17] MEDS: TPN PER PHARMACY MC PRN (11:09)
--- NOTE | 2019-12-17 11:10 | NUR ---
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 TPN started B:Pertinent PMH: EC fistula Height: 5 feet, 1 inches Weight: 40.0 kg Current diet: GI soft LABS: Sodium: 132 Potassium: 4.6 Chloride: 102 Calcium: 8.5 Corrected Calcium: 10.26 Magnesium: CO2: 20 SCr: 0.7 Glucose: 78 Albumin: 1.8 AST: 13 ALT: - TPN FORMULA: TPN TYPE: Central Continuous AMINO ACIDS: 90 gm DEXTROSE: 285 gm LIPIDS: 35 gm SODIUM CHLORIDE: 120 mEq SODIUM ACETATE: 120 mEq SODIUM PHOSPHATE: mmol POTASSIUM CHLORIDE: mEq POTASSIUM ACETATE: 30 mEq POTASSIUM PHOSPHATE: 22 mmol MAGNESIUM: 24 mEq CALCIUM: 10 mEq INSULIN: units MULTIPLE VITAMIN: 10 ml TRACE ELEMENTS: MTE 5 1 ml ml(s) TPN PLAN: Pt with home TPN for high output fistula. Per Dr. Cisneros, initiate same TPN that she had upon last admit and DC her IVF upon TPN start. TPN per above formula and BMP/mag/phos/trig in AM. R: Begin TPN ABOVE. Will monitor electrolytes, glucose, and tolerance to TPN. CICI DURAN ROPER [facility], 12/17/19 [id number]
--- NOTE | 2019-12-17 11:24 | RAD ---
Examination: CHEST AP ONLY History: Reason: fever / Spl. Instructions: / History: Comparison: 11/28/2019. Findings: AP portable upright frontal view of the chest was obtained. Right-sided central venous catheter terminates overlying the superior cavoatrial junction. The cardiomediastinal silhouette is normal. Lungs are clear. There is no pneumothorax. No pleural effusion is appreciated. No acute bone abnormality. Right upper quadrant surgical clips are present. IMPRESSION: No acute cardiopulmonary process. Electronically signed by: Samuel Chambers MD (12/17/2019 11:21 AM) [id number]
--- NOTE | 2019-12-17 12:45 | HP ---
ADMIT DATE: 12/17/2019 LOCATION: She is in room 663. HISTORY OF PRESENT ILLNESS: The patient is a 64-year-old female with history of enterocutaneous fistula, maintained on home total parenteral nutrition, who also has an enterovesical fistula and a chronic abdominal pain secondary to abdominal adhesions from previous surgical procedures related to her attempted repair of her enterocutaneous fistula with mesh and she notes a 1-day history of fever up to 100.4 degrees and lower abdominal pain and some drainage from her enterocutaneous fistula, which was purulent and also from her abdominal wall. She also developed two abdominal wounds in the left abdomen and near her groin. She is admitted for further evaluation of the abdominal pain and fever. ALLERGIES AND INTOLERANCES: IV IODINE, ADHESIVE TAPE, CODEINE, SILVER, AND IV VANCOMYCIN. SHE CAN TAKE ORAL VANCOMYCIN. MEDICATIONS: Prior to admission include her TPNs at 80 mL an hour continuously. Dilaudid 2 mg p.o. q.i.d. p.r.n., zinc oxide applied topically b.i.d. to the abdominal wall, lidocaine ointment applied topically, lidocaine cream applied topically to the abdominal wall b.i.d., lorazepam 0.5 mg p.o. every 6 hours p.r.n. anxiety, Protonix 40 mg every day, sertraline 50 mg every day, Tylenol 650 mg every 6 hours p.r.n., Zofran 4 mg p.o. every 6 hours p.r.n., Ambien 5 mg at bedtime p.r.n. PAST MEDICAL HISTORY: Significant for a enterocutaneous fistula. She also has an enterovesical fistula. She has had multiple surgical abdominal procedures related to her attempted repair of the enterocutaneous fistula, pale. She has a mesh there. She has chronic abdominal pain secondary to abdominal adhesions. She has a history of Clostridium difficile colitis in the past, history of a deep vein thrombosis of left arm due to a PICC line in 2010. She does have a PICC line in the right side of her chest and that is the last site she can possibly have a PICC line and that is for home TPN. She has a history of recurrent bacteremia and sepsis, sometimes related to infected PICC line and has diverticulosis and gastritis. She has had an appendectomy, cholecystectomy, tonsillectomy, hysterectomy. Depression. Previous history of diverticulitis and erosive esophagitis and Judi esophagitis. History of hypertension. SOCIAL HISTORY: She does not drink alcohol nor does she smoke cigarettes. She is maintained on home TPN with home health. FAMILY HISTORY: Noncontributory. REVIEW OF SYSTEMS: GENERAL: She did have fever. CARDIOVASCULAR: No chest pain. PULMONARY: No cough. GASTROINTESTINAL: No diarrhea. She does have the abdominal pain. ENDOCRINE: No diabetes mellitus. SKIN: She has got abdominal wounds in the left lower quadrant of her abdomen and groin. The rest of systems reviewed are negative except as stated in history of present illness. PHYSICAL EXAMINATION: VITAL SIGNS: Temperature is 98.2 degrees, pulse 74, respiratory rate 18, blood pressure 111/61, oxygen saturation 96% on room air, and temperature in the Emergency Room was 99.4 degrees last night. HEENT: Eyes: Gaze is conjugate. Extraocular muscles are intact. Mouth: Tongue is midline. NECK: There is no cervical lymphadenopathy or thyroid enlargement. HEART: Reveals an S1, S2. There is no S3 or murmur. LUNGS: Clear. ABDOMEN: Soft. Abdomen is not distended. She has a couple of wounds, one bigger than the other in the left groin. She does have granulation tissue in the base. Abdomen is soft. I do not feel any subcutaneous abscesses. EXTREMITIES: Lower extremities without edema. SKIN: No rashes. NEUROLOGIC: Coherent, alert with no focal weakness in the arms or legs. LABORATORY DATA: Review of her laboratory tests; white count was 7.3, hemoglobin 9.3, platelet count 636,000, 71 polys and 15 lymphocytes. Sodium 132, potassium 4.6, chloride 102, total CO2 is 20, BUN was 14, creatinine 0.7, blood sugar was 78. The liver function tests were okay. Albumin 1.8 and the lactic acid level is 1.1. I do not see any chest x-ray or EKG ordered from the Emergency Room. ASSESSMENT: 1. Fever. 2. Abdominal pain. 3. Enterocutaneous fistula. 4. Enterovesical fistula. 5. New abdominal wounds in the left lower quadrant of the abdomen near the groin. 6. Severe protein-calorie malnutrition. 7. Anemia of chronic disease. 8. Enterovesical fistula. 9. Chronic abdominal pain secondary to adhesions. PLAN: At this time is consult Dr. Tomlinson who has already seen the patient and felt she had an enterocutaneous fistula and ordered some topical Bactroban and agree with IV antibiotics. We will Dr. Consult Dr. Garcia Suggs for Infectious Disease. Blood culture was done and the patient was started on IV Zyvox and Zosyn. In addition, we will also put her on oral vancomycin to help prevent Clostridium difficile colitis recurrence. I spoke with the pharmacist and the TPN has been ordered. In the meantime, she was on D10W, but with mild hyponatremia, we will change it to D5 one-half normal saline at 75 mL an hour and put her on a GI soft diet and once her TPN is available, discontinue IV fluids. Continue with her home medications. Check the CBC and BMP tomorrow. Physical and occupational therapy has been ordered. SCDs for deep vein thrombosis prophylaxis has also been ordered and for topical treatment to the abdominal wound, we will consult the wound care nurse. Await for the blood culture results. Thank you very much. BENITA LUTZ MD DR: NABILA/jd JOB#: [id number] / [id number]
--- NOTE | 2019-12-17 13:27 | EKG ---
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
--- NOTE | 2019-12-17 14:15 | PDOC ---
Infectious Disease Note Vital Sign Vital Signs Vital Signs Date Time Temp Pulse Resp B/P (MAP) Pulse Ox O2 Delivery O2 Flow Rate FiO2 12/17/19 11:18 98.2 80 16 115/72 (86) 94 Room Air 98.2 Labs Lab Laboratory Tests Test 12/16/19 19:30 12/17/19 12:20 White Blood Count 7.3 x10^3/uL (4.0-11.0) Red Blood Count 3.13 x10^6/uL (3.50-5.40) Hemoglobin 9.3 g/dL (12.0-15.5) Hematocrit 27.8 % (36.0-47.0) Mean Corpuscular Volume 89 fL (79-100) Mean Corpuscular Hemoglobin 30 pg (25-35) Mean Corpuscular Hemoglobin Concent 34 g/dL (31-37) Red Cell Distribution Width 18.4 % (11.5-14.5) Platelet Count 636 x10^3/uL (140-400) Neutrophils (%) (Auto) 71 % (31-73) Lymphocytes (%) (Auto) 15 % (24-48) Monocytes (%) (Auto) 10 % (0-9) Eosinophils (%) (Auto) 3 % (0-3) Basophils (%) (Auto) 1 % (0-3) Neutrophils # (Auto) 5.2 x10^3/uL (1.8-7.7) Lymphocytes # (Auto) 1.1 x10^3/uL (1.0-4.8) Monocytes # (Auto) 0.7 x10^3/uL (0.0-1.1) Eosinophils # (Auto) 0.2 x10^3/uL (0.0-0.7) Basophils # (Auto) 0.1 x10^3/uL (0.0-0.2) Sodium Level 132 mmol/L (136-145) Potassium Level 4.6 mmol/L (3.5-5.1) Chloride Level 102 mmol/L (98-107) Carbon Dioxide Level 20 mmol/L (21-32) Anion Gap 10 (6-14) Blood Urea Nitrogen 14 mg/dL (7-20) Creatinine 0.7 mg/dL (0.6-1.0) Estimated GFR (Cockcroft-Gault) 101.9 BUN/Creatinine Ratio 20 (6-20) Glucose Level 78 mg/dL (70-99) Lactic Acid Level 1.1 mmol/L (0.4-2.0) Calcium Level 8.5 mg/dL (8.5-10.1) Total Bilirubin 0.3 mg/dL (0.2-1.0) Aspartate Amino Transf (AST/SGOT) 13 U/L (15-37) Alanine Aminotransferase (ALT/SGPT) < 6 U/L (14-59) Alkaline Phosphatase 104 U/L (46-116) Total Protein 7.5 g/dL (6.4-8.2) Albumin 1.8 g/dL (3.4-5.0) Albumin/Globulin Ratio 0.3 (1.0-1.7) Triglycerides Level 48 mg/dL (0-150) Objective Assessment LLQ abdominal wounds with purulent drainage Recent h/o 4.8 complex fluid collection LLQ on ultrasound from 11/28, not amenable to drainage. Vancomycin allergy Enterocutaneous fistula Enterovesical fistula Malnutrition h/o CoNS line infections. (CVC line last changed 10/31/19) h/o C. difficile, 06/2019 Plan Plan of Care Zyvox and Zosyn add po vancomycin BID f/u cultures Monitor labs/temp Local wound care May need repeat imaging Thank you [phone] Patient discussed with FINANCIAL ADMINISTRATIVE ASSISTANT. Chart reviewed in detail. Above plan co-formulated and agreed upon with FINANCIAL ADMINISTRATIVE ASSISTANT on 12/17/2019. MARICARMEN COLEMAN APRN Dec 17, 2019 14:15 RUSTY HERNANDEZ MD Dec 17, 2019 20:01
--- NOTE | 2019-12-17 15:16 | CONS ---
DATE OF CONSULTATION: 12/17/2019 Odin Adler, nurse practitioner dictating for Dr. Rusty Hernandez, Infectious Disease. REFERRING PHYSICIAN: Gege Arevalo DO REASON FOR CONSULTATION: Abdominal wall cellulitis. HISTORY OF PRESENT ILLNESS: This patient is a 64-year-old -[place] female with a past medical history of diverticular disease with a chronic enterocutaneous fistula, status post multiple unsuccessful surgical repairs; history of multiple abdominal wall abscesses and recurrent cellulitis. About 2 months ago, she had a drain placed for a left lower quadrant anterior abdominal wall abscess with growth of mixed skin isiah including multiple Gram-negative rods. She was treated with daptomycin, Zosyn and micafungin. About 2 weeks later, she was readmitted for fever and drainage from pigtail catheter site. A left lower quadrant abdominal ultrasound showed a 4.8 cm complex fluid collection in the periumbilical region, not amenable to drainage per Interventional Radiology. The drain was eventually removed and she was treated with Zyvox, Zosyn and fluconazole, which were eventually discontinued. The drain was removed and she was discharged home. The patient says she was doing fairly well when a couple days ago, she developed increased left lower quadrant pain, redness and fever. She noticed that the previous drain site opened up with purulent drainage and another site adjacent to it opened up as well. She has since been admitted and started on Zyvox and Zosyn. Today, the patient says she is feeling a little bit better. Her fever seems to have settled down so far. She denies chills, shakes or body aches. Denies nausea, vomiting or diarrhea. Dictation Ends Here. RUSTY HERNANDEZ MD DR: GERALD/jd JOB#: [id number] / [id number] ROHITH
--- NOTE | 2019-12-17 15:53 | CONS ---
DATE OF CONSULTATION: 12/17/2019 ADDENDUM REFERRING PHYSICIAN: Dr. Arevalo. REASON FOR CONSULTATION: Abdominal wall cellulitis. HISTORY OF PRESENT ILLNESS: She is tolerating 75% of a gastrointestinal soft diet. She has chronic abdominal pain for which she is being treated with Dilaudid. She has a history of line infections associated with coag-negative staph. The central line was last replaced on 10/31/2019. She also has a history of Clostridium difficile colitis in 06/2019. PAST MEDICAL HISTORY: Previous abdominal fluid cultures positive for Citrobacter farmeri, multidrug resistant Klebsiella aerogenes, Raoultella, Escherichia coli, and Enterococcus faecalis, history of Pseudomonas aeruginosa (pansensitive) bacteremia, coag-negative staph line infections, diverticular disease with chronic enterocutaneous fistula, enterovesical fistula, chronic abdominal pain, chronic total parenteral nutrition, history of Clostridium difficile colitis in 06/2019, hypertension, history of deep vein thrombosis, gastroesophageal reflux disease, kidney stones, hypothyroidism, depression, anxiety, anemia, and history methicillin-resistant Staphylococcus aureus and extended spectrum beta lactamase in the past. PAST SURGICAL HISTORY: Multiple abdominal surgeries, cholecystectomy, hysterectomy, bilateral hip surgery. SOCIAL HISTORY: The patient lives at home. She does not smoke. FAMILY HISTORY: Asthma, cancer, hypertension, and chronic obstructive pulmonary disease. ALLERGIES: CONTRAST DYE, ADHESIVE TAPE, CODEINE, SILVER, AND VANCOMYCIN. MEDICATIONS: Reviewed on the MAR and include Zyvox, Zosyn, and probiotics. REVIEW OF SYSTEMS: Per HPI; otherwise, all other review of systems are negative. PHYSICAL EXAMINATION: VITAL SIGNS: Temperature 98.2, blood pressure 115/72, heart rate 80, respiratory rate 16, and pulse oximetry 94% on room air. GENERAL: The patient is propped up in bed, alert, cachectic, appearing comfortable. HEENT: Pupils are equally round and reactive. Oropharynx is pink and moist. NECK: Supple. LUNGS: Clear to auscultation. HEART: S1 and S2. ABDOMEN: Nondistended, soft, with bowel sounds present; enterocutaneous fistula with drainage and mild excoriation. She has 2 wounds in left lower quadrant area, one is previous pigtail catheter site, now with purulent drainage. EXTREMITIES: No gross edema or cyanosis. SKIN: Warm to touch. No signs of rash. NEUROLOGIC: Alert and answering questions appropriately. SKIN: Right chest central venous catheter line without signs of any complications. LABORATORY DATA: From 11/15, WBC 7.3, hemoglobin 9.3, platelets 636,000; sodium 132, potassium 4.6, creatinine 0.7, BUN 14, lactic acid 1.1, total bilirubin 0.3, AST 13, ALT less than 6, albumin 1.8, triglycerides 48. Wound and blood cultures are pending. IMAGING: Chest x-ray showed no acute cardiopulmonary process. ASSESSMENT: 1. Left lower quadrant abdominal wounds with purulent drainage. 2. Recent history of a 4.8 complex fluid collection in left lower quadrant seen on ultrasound from 11/28, not amenable to drainage. 3. VANCOMYCIN ALLERGY. 4. Enterocutaneous fistula. 5. Enterovesical fistula. 6. Malnutrition. 7. History of Clostridium difficile colitis in 07/03. PLAN: 1. Continue Zyvox and Zosyn. 2. Add oral vancomycin twice a day prophylactically. 3. Local wound care. 4. Follow up on culture results. 5. Monitor laboratory values and temperature. 6. Maintain aspiration precautions. 7. May need repeat imaging. Thank you Dr. Areavlo for asking us to participate in this patient's care. Should you have further questions or concerns, please call. RUSTY HERNANDEZ MD DR: ADDY/jd JOB#: [id number] / [id number]
--- NOTE | 2019-12-17 16:21 | RAD ---
Abdominal and Pelvis CT, Without Contrast: History: Reason: pain. fever. enterocutaneous fistula / Spl. Instructions: / History: Comparison: November 28, 2019. Procedure: Axial images are obtained of the abdomen and pelvis, without IV or oral contrast. Oral Contrast: No Findings: Evaluation of solid organs is limited without contrast. There is an air-fluid collection seen anteriorly which is in the midline and above the umbilicus. There is multiple suture lines. There is some loss of fat soft tissue planes making the study difficult to evaluate and there is also edema within the subcutaneous soft tissues. This multiple surgical clips in the pelvis. Is beam Kee artifact due to prior bilateral hip fracture repair. Liver: Normal. Spleen: Normal. Pancreas: Normal. Adrenal Glands: Normal. Kidneys: Mild right hydronephrosis. There is no free air or free fluid. There is no lymphadenopathy. The urinary bladder appears normal. There is no pericolonic inflammation identified. There is edema in the soft tissues in the left lower hemipelvis anteriorly where there was previously a pigtail catheter. There is a few mildly enlarged lymph nodes in the left. Impression: 1. Studies difficult to read due to lack of IV and oral contrast. There is loss of multiple fat soft tissue planes likely due to anasarca or sepsis which was also seen previously and is further limits the evaluation. 2. Probable inflammatory tissue remaining from previously collapsed abscess in the left abdominal wall. There is no new fluid collection seen. 3. There is no abnormal air-fluid collection in the midline abdomen which has been seen previously and could be aneurysmal bowel however an abscess is possible. Recommend repeat CT the abdomen and pelvis with IV and oral contrast. 3. Mild right hydronephrosis seen previously. End impression PQRS Compliance Statement: One or more of the following individualized dose reduction techniques were utilized for this examination: 1. Automated exposure control 2. Adjustment of the mA and/or kV according to patient size 3. Use of iterative reconstruction technique Electronically signed by: Jason West III, MD (12/17/2019 4:18 PM) [id number]
[2019-12-17] MEDS: ZOLPIDEM 5 MG TABLET. PO SCH (20:41)
[2019-12-17] MEDS: LACTOBACILLUS RHAMNOSUS GG 1 CAPSULE. PO SCH (20:41)
[2019-12-17] MEDS: VANCOMYCIN 125 MG/2.5 ML ORAL SOLUTION. PO SCH (20:41)
[2019-12-17] MEDS ORDERED: [UNRECOGNIZED DRUG - OTHER] IV SCH (22:00)
[2019-12-17] MEDS ORDERED: AMINO ACID IV SCH (22:00)
[2019-12-17] MEDS ORDERED: DEXTROSE 70% IV SCH (22:00)
[2019-12-17] MEDS ORDERED: TOTAL PARENTERAL NUTRITION IV SCH (22:00)
[2019-12-18] MEDS: HYDROmorphone 2 MG/ML VIAL IV PRN ×5 (00:24→17:51)
[2019-12-18] MEDS: PIPERACILLIN/TAZOBACTAM 3.375 GM in IV NORMAL SALINE 50ML 50 ML IV SCH ×4 (00:24→17:51)
[2019-12-18 02:46] VITALS: BP 128/67
[2019-12-18 05:34] LABS: BASO % 1 % (0-3); EOS # 0.3 x10^3/uL (0.0-0.7); EOS % 5 % (0-3); HEMOGLOBIN 8.7 g/dL (12.0-15.5); LYMPH # 0.8 x10^3/uL (1.0-4.8); LYMPH % 16 % (24-48); MEAN CORPUSCULAR HEMOGLOBIN 29 pg (25-35); MEAN CORPUSCULAR HGB CONC 33 g/dL (31-37); MEAN CORPUSCULAR VOLUME 88 fL (79-100); MONO # 0.5 x10^3/uL (0.0-1.1); MONO % 11 % (0-9); NEUT # 3.3 x10^3/uL (1.8-7.7); NEUT % 67 % (31-73); PLATELET COUNT 602 x10^3/uL (140-400); RED BLOOD COUNT 2.95 x10^6/uL (3.50-5.40); RED CELL DISTRIBUTION WIDTH 17.9 % (11.5-14.5)
[2019-12-18 05:46] LABS: CALCIUM 7.7 mg/dL (8.5-10.1); CREATININE 0.6 mg/dL (0.6-1.0); GFR 121.8; MAGNESIUM 1.4 mg/dL (1.8-2.4); POTASSIUM 3.9 mmol/L (3.5-5.1)
[2019-12-18 07:00] VITALS: BP 119/73
[2019-12-18] MEDS: PANTOPRAZOLE 40 MG TABLET.DR. PO SCH (07:30)
[2019-12-18] MEDS: MUPIROCIN 2 % NASAL OINTMENT 22GM TUBE. TP SCH ×2 (09:00→21:59)
[2019-12-18] MEDS: SERTRALINE 50 MG TABLET. PO SCH (09:00)
[2019-12-18] MEDS: LACTOBACILLUS RHAMNOSUS GG 1 CAPSULE. PO SCH ×2 (09:00→21:59)
[2019-12-18] MEDS: ZINC OXIDE 20% TOPICAL OINTMENT 28GM TUBE. TP SCH ×2 (09:00→21:59)
[2019-12-18] MEDS: LIDOCAINE 2% TOPICAL JELLY 30GM TUBE. TP SCH ×2 (09:00→22:00)
[2019-12-18] MEDS: VANCOMYCIN 125 MG/2.5 ML ORAL SOLUTION. PO SCH ×2 (09:00→21:59)
--- NOTE | 2019-12-18 10:11 | PDOC ---
PROGRESS NOTES Subjective Subjective feels better. afebrile. lab reviewed. magnesium low 1.4. wbc nomal. blood culture neg so far. cxr neg. ct scan of abdomen adn pelvis showed no air fluid collection. radiology recommended repeat ct scan with iv and oral contrast and has allergy to iv contrast.will defer this to ID. Objective Objective Vital Signs Date Time Temp Pulse Resp B/P (MAP) Pulse Ox O2 Delivery O2 Flow Rate FiO2 12/18/19 06:16 98 Room Air 12/18/19 05:33 18 12/18/19 02:46 97.5 82 128/67 (87) 97.5 Intake and Output 12/18/19 06:59 Intake Total 1400 ml Balance 1400 ml Intake Oral 700 ml IV Total 700 ml # Voids 3 Physical Exam Abdomen: Soft, Other (Enterocutaneous fistula. not distended. no induration of abdomiinal wall) Heart: Regular rate, Normal S1, Normal S2 Extremities: No edema General: Alert HEENT: Atraumatic Lungs: Clear to auscultation Neuro: Normal speech Psych/Mental Status: Mental status NL Skin: Other (2 abdominal wounds LLQ with granulation tissue in base) Assessment Assessment 1. Fever. resolved 2. Abdominal pain. 3. Enterocutaneous fistula. 4. Enterovesical fistula. 5. New abdominal wounds in the left lower quadrant of the abdomen near the groin. 6. Severe protein-calorie malnutrition. 7. Anemia of chronic disease. 8. Enterovesical fistula. 9. Chronic abdominal pain secondary to adhesions. previous history of C . diff\ hypomagnesemia Plan Plan of Care continue iv zyvox and zosyn continue oral vancomycin continue TPN iv magnesium sulfate today lab tomorrow defer decision to repeat ct scan of abdomen/pelvis with iv and oral contrast to ID noting allergy to iv iodine PT and OT Comment Review of Relevant I have reviewed the following items lucila (where applicable) has been applied. Labs Laboratory Tests Test 12/16/19 19:30 12/17/19 12:20 12/18/19 04:31 White Blood Count 7.3 x10^3/uL (4.0-11.0) 5.0 x10^3/uL (4.0-11.0) Red Blood Count 3.13 x10^6/uL (3.50-5.40) 2.95 x10^6/uL (3.50-5.40) Hemoglobin 9.3 g/dL (12.0-15.5) 8.7 g/dL (12.0-15.5) Hematocrit 27.8 % (36.0-47.0) 26.0 % (36.0-47.0) Mean Corpuscular Volume 89 fL (79-100) 88 fL (79-100) Mean Corpuscular Hemoglobin 30 pg (25-35) 29 pg (25-35) Mean Corpuscular Hemoglobin Concent 34 g/dL (31-37) 33 g/dL (31-37) Red Cell Distribution Width 18.4 % (11.5-14.5) 17.9 % (11.5-14.5) Platelet Count 636 x10^3/uL (140-400) 602 x10^3/uL (140-400) Neutrophils (%) (Auto) 71 % (31-73) 67 % (31-73) Lymphocytes (%) (Auto) 15 % (24-48) 16 % (24-48) Monocytes (%) (Auto) 10 % (0-9) 11 % (0-9) Eosinophils (%) (Auto) 3 % (0-3) 5 % (0-3) Basophils (%) (Auto) 1 % (0-3) 1 % (0-3) Neutrophils # (Auto) 5.2 x10^3/uL (1.8-7.7) 3.3 x10^3/uL (1.8-7.7) Lymphocytes # (Auto) 1.1 x10^3/uL (1.0-4.8) 0.8 x10^3/uL (1.0-4.8) Monocytes # (Auto) 0.7 x10^3/uL (0.0-1.1) 0.5 x10^3/uL (0.0-1.1) Eosinophils # (Auto) 0.2 x10^3/uL (0.0-0.7) 0.3 x10^3/uL (0.0-0.7) Basophils # (Auto) 0.1 x10^3/uL (0.0-0.2) 0.0 x10^3/uL (0.0-0.2) Sodium Level 132 mmol/L (136-145) 132 mmol/L (136-145) Potassium Level 4.6 mmol/L (3.5-5.1) 3.9 mmol/L (3.5-5.1) Chloride Level 102 mmol/L (98-107) 103 mmol/L (98-107) Carbon Dioxide Level 20 mmol/L (21-32) 22 mmol/L (21-32) Anion Gap 10 (6-14) 7 (6-14) Blood Urea Nitrogen 14 mg/dL (7-20) 8 mg/dL (7-20) Creatinine 0.7 mg/dL (0.6-1.0) 0.6 mg/dL (0.6-1.0) Estimated GFR (Cockcroft-Gault) 101.9 121.8 BUN/Creatinine Ratio 20 (6-20) Glucose Level 78 mg/dL (70-99) 128 mg/dL (70-99) Lactic Acid Level 1.1 mmol/L (0.4-2.0) Calcium Level 8.5 mg/dL (8.5-10.1) 7.7 mg/dL (8.5-10.1) Total Bilirubin 0.3 mg/dL (0.2-1.0) Aspartate Amino Transf (AST/SGOT) 13 U/L (15-37) Alanine Aminotransferase (ALT/SGPT) < 6 U/L (14-59) Alkaline Phosphatase 104 U/L (46-116) Total Protein 7.5 g/dL (6.4-8.2) Albumin 1.8 g/dL (3.4-5.0) Albumin/Globulin Ratio 0.3 (1.0-1.7) Triglycerides Level 48 mg/dL (0-150) Phosphorus Level 3.6 mg/dL (2.6-4.7) Magnesium Level 1.4 mg/dL (1.8-2.4) Laboratory Tests Test 12/17/19 12:20 12/18/19 04:31 Triglycerides Level 48 mg/dL (0-150) White Blood Count 5.0 x10^3/uL (4.0-11.0) Red Blood Count 2.95 x10^6/uL (3.50-5.40) Hemoglobin 8.7 g/dL (12.0-15.5) Hematocrit 26.0 % (36.0-47.0) Mean Corpuscular Volume 88 fL (79-100) Mean Corpuscular Hemoglobin 29 pg (25-35) Mean Corpuscular Hemoglobin Concent 33 g/dL (31-37) Red Cell Distribution Width 17.9 % (11.5-14.5) Platelet Count 602 x10^3/uL (140-400) Neutrophils (%) (Auto) 67 % (31-73) Lymphocytes (%) (Auto) 16 % (24-48) Monocytes (%) (Auto) 11 % (0-9) Eosinophils (%) (Auto) 5 % (0-3) Basophils (%) (Auto) 1 % (0-3) Neutrophils # (Auto) 3.3 x10^3/uL (1.8-7.7) Lymphocytes # (Auto) 0.8 x10^3/uL (1.0-4.8) Monocytes # (Auto) 0.5 x10^3/uL (0.0-1.1) Eosinophils # (Auto) 0.3 x10^3/uL (0.0-0.7) Basophils # (Auto) 0.0 x10^3/uL (0.0-0.2) Sodium Level 132 mmol/L (136-145) Potassium Level 3.9 mmol/L (3.5-5.1) Chloride Level 103 mmol/L (98-107) Carbon Dioxide Level 22 mmol/L (21-32) Anion Gap 7 (6-14) Blood Urea Nitrogen 8 mg/dL (7-20) Creatinine 0.6 mg/dL (0.6-1.0) Estimated GFR (Cockcroft-Gault) 121.8 Glucose Level 128 mg/dL (70-99) Calcium Level 7.7 mg/dL (8.5-10.1) Phosphorus Level 3.6 mg/dL (2.6-4.7) Magnesium Level 1.4 mg/dL (1.8-2.4) Microbiology 12/16/19 Blood Culture - Preliminary, Resulted NO GROWTH AFTER 1 DAY Medications Current Medications Hydromorphone HCl (Dilaudid) 1 mg 1X ONCE IV Last administered on 12/16/19at 18:56; Start 12/16/19 at 18:45; Stop 12/16/19 at 18:46; Status DC Ondansetron HCl (Zofran) 4 mg 1X ONCE IVP Last administered on 12/16/19at 18:56; Start 12/16/19 at 18:45; Stop 12/16/19 at 18:46; Status DC Sodium Chloride 1,000 ml @ 1,000 mls/hr 1X ONCE IV Last administered on 12/16/19at 19:47; Start 12/16/19 at 18:45; Stop 12/16/19 at 19:44; Status DC Ondansetron HCl (Zofran) 4 mg PRN Q8HRS PRN IV NAUSEA/VOMITING; Start 12/16/19 at 20:15; Stop 12/17/19 at 20:14; Status DC Dextrose/Sodium Chloride 1,000 ml @ 75 mls/hr 1X ONCE IV Last administered on 12/16/19at 21:41; Start 12/16/19 at 20:15; Stop 12/17/19 at 09:34; Status DC Hydromorphone HCl (Dilaudid) 2 mg PRN Q4HRS PRN IV PAIN Last administered on 12/17/19at 08:06; Start 12/16/19 at 20:15; Stop 12/17/19 at 10:25; Status DC Zolpidem Tartrate (Ambien) 5 mg QHS PO Last administered on 12/17/19at 20:41; Start 12/16/19 at 21:00 Linezolid/Dextrose 300 ml @ 300 mls/hr Q12HR IV Last administered on 12/17/19at 20:42; Start 12/17/19 at 09:00 Piperacillin Sod/ Tazobactam Sod 3.375 gm/Sodium Chloride 50 ml @ 100 mls/hr Q6HRS IV Last administered on 12/18/19at 05:34; Start 12/17/19 at 01:00 Linezolid/Dextrose 300 ml @ 300 mls/hr ONCE ONCE IV Last administered on 12/16/19at 22:43; Start 12/16/19 at 21:00; Stop 12/16/19 at 21:59; Status DC Piperacillin Sod/ Tazobactam Sod 3.375 gm/Sodium Chloride 50 ml @ 100 mls/hr ONCE ONCE IV Last administered on 12/16/19at 20:46; Start 12/16/19 at 20:30; Stop 12/16/19 at 20:59; Status DC Neomycin/ Polymyxin/ Bacitracin (Triple Antibiotic Ointment) 1 pkt STK-MED ONCE TP ; Start 12/16/19 at 20:36; Stop 12/16/19 at 20:37; Status DC Mupirocin (Bactroban) 1 sang BID TP Last administered on 12/17/19at 20:43; Start 12/17/19 at 09:00 Hydromorphone HCl (Dilaudid) 1 mg PRN Q4HRS PRN IV PAIN Last administered on 12/18/19 05:33; Start 12/17/19 at 10:15 Acetaminophen (Tylenol) 650 mg PRN Q6HRS PRN PO MILD PAIN / TEMP > 100.3'F; Start 12/17/19 at 10:15 Zinc Oxide (Zinc Oxide 20% Topical) 1 asng BID TP Last administered on 12/17/19at 20:42; Start 12/17/19 at 11:00 Lidocaine HCl (Xylocaine 2% Topical 30gm Tube) 1 sagn BID TP Last administered on 12/17/19at 20:42; Start 12/17/19 at 11:00 Lorazepam (Ativan) 0.5 mg PRN Q6HRS PRN PO ANXIETY / AGITATION; Start 12/17/19 at 10:15 Ondansetron HCl (Zofran Odt) 4 mg PRN Q6HRS PRN PO NAUSEA/VOMITING; Start 12/17/19 at 10:15 Pantoprazole Sodium (Protonix) 40 mg DAILYAC PO Last administered on 12/17/19at 10:45; Start 12/17/19 at 11:00 Dextrose/Sodium Chloride 1,000 ml @ 75 mls/hr [id number] IV Last administered on 12/17/19 10:45; Start 12/17/19 at 10:15; Stop 12/17/19 at 21:59; Status DC Sertraline HCl (Zoloft) 50 mg DAILY PO Last administered on 12/17/19at 10:45; Start 12/17/19 at 11:00 Info (Tpn Per Pharmacy) 1 each PRN DAILY PRN MC SEE COMMENTS Last administered on 12/17/19at 11:09; Start 12/17/19 at 11:00 Sodium Chloride 120 meq/Sodium Acetate 120 meq/ Potassium Acetate 30 meq/Potassium Phosphate 22 mmol/ Magnesium Sulfate 24 meq/Calcium Gluconate 10 meq/ Multivitamins 10 ml/Chromium/ Copper/Manganese/ Seleni/Zn 1 ml/ Total Parenteral Nutrition/Amino Acids/Dextrose/ Fat Emulsion Intravenous 1,920 ml @ 80 mls/hr TPN CONT IV Last administered on 12/17/19at 22:49; Start 12/17/19 at 22:00; Stop 12/18/19 at 21:59 Lactobacillus Rhamnosus (Culturelle) 1 cap BID PO Last administered on 12/17/19at 20:41; Start 12/17/19 at 21:00 Vancomycin HCl (Vancomycin Oral Solution) 125 mg BID PO Last administered on 12/17/19at 20:41; Start 12/17/19 at 21:00 Active Scripts Active Dilaudid (Hydromorphone Hcl) 2 Mg Tablet 1 Tab PO Q6HRS PRN MDD 4 Tablet(s) Pantoprazole Sodium (Pantoprazole Sodium) 40 Mg Tablet.dr 40 Mg PO DAILYAC Tylenol (Acetaminophen) 325 Mg Tablet 650 Mg PO PRN Q6HRS PRN [Pantoprazole] 40 MG Tablet.dr 40 Mg PO DAILYAC 30 Days Zinc Oxide 56.7 Gm Oint...g. 1 Sang TP BID Ambien (Zolpidem Tartrate) 5 Mg Tablet 5 Mg PO PRN QHS PRN 30 Days [Tpn Per Pharmacy] 1 EACH Each 1 Each MC PRN DAILY PRN TPN at 85cc/hour Sertraline Hcl 50 Mg Tablet 50 Mg PO DAILY 30 Days Lidocaine 35.44 Gm Oint...g. 1 Sang TP BID Reported Ondansetron Hcl 4 Mg Tablet 4 Mg PO PRN Q6HRS PRN Lorazepam 0.5 Mg Tablet 0.5 Mg PO Q6HRS PRN Vitals/I & O Vital Sign - Last 24 Hours 12/17/19 12/17/19 12/17/19 12/17/19 11:18 15:28 19:30 20:15 Temp 98.2 97.9 97.5 98.2 97.9 97.5 Pulse 80 76 78 Resp 16 20 18 B/P (MAP) 115/72 (86) 120/64 (82) 109/60 (76) Pulse Ox 94 98 97 O2 Delivery Room Air Room Air Room Air Room Air 12/17/19 12/17/19 12/17/19 12/18/19 20:41 21:15 22:48 00:24 Temp 98.5 98.5 Pulse 88 Resp 18 18 16 B/P (MAP) 181/95 (123) Pulse Ox 97 97 98 98 O2 Delivery Room Air Room Air Room Air Room Air 12/18/19 12/18/19 12/18/19 12/18/19 01:05 02:46 05:33 06:16 Temp 97.5 97.5 Pulse 82 Resp 16 18 18 B/P (MAP) 128/67 (87) Pulse Ox 98 98 98 98 O2 Delivery Room Air Room Air Room Air Room Air Intake and Output 12/17/19 12/17/19 12/18/19 14:59 22:59 06:59 Intake Total 500 ml 750 ml 150 ml Balance 500 ml 750 ml 150 ml Justicifation of Admission Dx: Justifications for Admission: Justification of Admission Dx: Yes BENITA LUTZ MD Dec 18, 2019 10:11
[2019-12-18 11:00] VITALS: BP 114/71
[2019-12-18] MEDS ORDERED: MAGNESIUM SULFATE 4GM 100 ML IV ONE (11:00)
[2019-12-18] MEDS: TPN PER PHARMACY MC PRN (12:32)
--- NOTE | 2019-12-18 12:36 | NUR ---
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:Pertinent PMH: EC fistula LABS: Sodium: 132 Potassium: 3.9 Chloride: 103 Calcium: 7.7 Corrected Calcium: 9.46 Magnesium: 1.4 CO2: 22 SCr: 0.6 Glucose: 128 Albumin: 1.8 AST: 13 ALT: <6 TPN FORMULA: TPN TYPE: Central Continuous AMINO ACIDS: 90 gm DEXTROSE: 285 gm LIPIDS: 35 gm SODIUM CHLORIDE: 120 mEq SODIUM ACETATE: 120 mEq SODIUM PHOSPHATE: - mmol POTASSIUM CHLORIDE: - mEq POTASSIUM ACETATE: 30 mEq POTASSIUM PHOSPHATE: 22 mmol MAGNESIUM: 24 mEq CALCIUM: 10 mEq INSULIN: - units MULTIPLE VITAMIN: 10 ml TRACE ELEMENTS: MTE 5 1 ml ml(s) TPN PLAN: 12/17 continue same TPN, Mag bolused, repeat labs in AM. R: Continue TPN Will monitor electrolytes, glucose, and tolerance to TPN. [facility] ROBL[facility], 12/18/19 [id number]
--- NOTE | 2019-12-18 14:34 | PDOC ---
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 12/18/19 1434: SURGICAL PROGRESS NOTE Subjective area draining doing some wound care currently Vital Signs Vital Signs Date Time Temp Pulse Resp B/P (MAP) Pulse Ox O2 Delivery O2 Flow Rate FiO2 12/18/19 11:00 98.3 97 16 114/71 (85) 100 Room Air 98.3 I&O Intake and Output 12/18/19 07:00 Intake Total 1400 ml Balance 1400 ml Intake Oral 700 ml IV Total 700 ml # Voids 3 General: Alert, Oriented X3, Cooperative Abdomen: Soft, Other (wound with purulent drainage ) Labs Laboratory Tests Test 12/16/19 19:30 12/17/19 12:20 12/18/19 04:31 White Blood Count 7.3 x10^3/uL (4.0-11.0) 5.0 x10^3/uL (4.0-11.0) Red Blood Count 3.13 x10^6/uL (3.50-5.40) 2.95 x10^6/uL (3.50-5.40) Hemoglobin 9.3 g/dL (12.0-15.5) 8.7 g/dL (12.0-15.5) Hematocrit 27.8 % (36.0-47.0) 26.0 % (36.0-47.0) Mean Corpuscular Volume 89 fL (79-100) 88 fL (79-100) Mean Corpuscular Hemoglobin 30 pg (25-35) 29 pg (25-35) Mean Corpuscular Hemoglobin Concent 34 g/dL (31-37) 33 g/dL (31-37) Red Cell Distribution Width 18.4 % (11.5-14.5) 17.9 % (11.5-14.5) Platelet Count 636 x10^3/uL (140-400) 602 x10^3/uL (140-400) Neutrophils (%) (Auto) 71 % (31-73) 67 % (31-73) Lymphocytes (%) (Auto) 15 % (24-48) 16 % (24-48) Monocytes (%) (Auto) 10 % (0-9) 11 % (0-9) Eosinophils (%) (Auto) 3 % (0-3) 5 % (0-3) Basophils (%) (Auto) 1 % (0-3) 1 % (0-3) Neutrophils # (Auto) 5.2 x10^3/uL (1.8-7.7) 3.3 x10^3/uL (1.8-7.7) Lymphocytes # (Auto) 1.1 x10^3/uL (1.0-4.8) 0.8 x10^3/uL (1.0-4.8) Monocytes # (Auto) 0.7 x10^3/uL (0.0-1.1) 0.5 x10^3/uL (0.0-1.1) Eosinophils # (Auto) 0.2 x10^3/uL (0.0-0.7) 0.3 x10^3/uL (0.0-0.7) Basophils # (Auto) 0.1 x10^3/uL (0.0-0.2) 0.0 x10^3/uL (0.0-0.2) Sodium Level 132 mmol/L (136-145) 132 mmol/L (136-145) Potassium Level 4.6 mmol/L (3.5-5.1) 3.9 mmol/L (3.5-5.1) Chloride Level 102 mmol/L (98-107) 103 mmol/L (98-107) Carbon Dioxide Level 20 mmol/L (21-32) 22 mmol/L (21-32) Anion Gap 10 (6-14) 7 (6-14) Blood Urea Nitrogen 14 mg/dL (7-20) 8 mg/dL (7-20) Creatinine 0.7 mg/dL (0.6-1.0) 0.6 mg/dL (0.6-1.0) Estimated GFR (Cockcroft-Gault) 101.9 121.8 BUN/Creatinine Ratio 20 (6-20) Glucose Level 78 mg/dL (70-99) 128 mg/dL (70-99) Lactic Acid Level 1.1 mmol/L (0.4-2.0) Calcium Level 8.5 mg/dL (8.5-10.1) 7.7 mg/dL (8.5-10.1) Total Bilirubin 0.3 mg/dL (0.2-1.0) Aspartate Amino Transf (AST/SGOT) 13 U/L (15-37) Alanine Aminotransferase (ALT/SGPT) < 6 U/L (14-59) Alkaline Phosphatase 104 U/L (46-116) Total Protein 7.5 g/dL (6.4-8.2) Albumin 1.8 g/dL (3.4-5.0) Albumin/Globulin Ratio 0.3 (1.0-1.7) Triglycerides Level 48 mg/dL (0-150) Phosphorus Level 3.6 mg/dL (2.6-4.7) Magnesium Level 1.4 mg/dL (1.8-2.4) Laboratory Tests Test 12/18/19 04:31 White Blood Count 5.0 x10^3/uL (4.0-11.0) Red Blood Count 2.95 x10^6/uL (3.50-5.40) Hemoglobin 8.7 g/dL (12.0-15.5) Hematocrit 26.0 % (36.0-47.0) Mean Corpuscular Volume 88 fL (79-100) Mean Corpuscular Hemoglobin 29 pg (25-35) Mean Corpuscular Hemoglobin Concent 33 g/dL (31-37) Red Cell Distribution Width 17.9 % (11.5-14.5) Platelet Count 602 x10^3/uL (140-400) Neutrophils (%) (Auto) 67 % (31-73) Lymphocytes (%) (Auto) 16 % (24-48) Monocytes (%) (Auto) 11 % (0-9) Eosinophils (%) (Auto) 5 % (0-3) Basophils (%) (Auto) 1 % (0-3) Neutrophils # (Auto) 3.3 x10^3/uL (1.8-7.7) Lymphocytes # (Auto) 0.8 x10^3/uL (1.0-4.8) Monocytes # (Auto) 0.5 x10^3/uL (0.0-1.1) Eosinophils # (Auto) 0.3 x10^3/uL (0.0-0.7) Basophils # (Auto) 0.0 x10^3/uL (0.0-0.2) Sodium Level 132 mmol/L (136-145) Potassium Level 3.9 mmol/L (3.5-5.1) Chloride Level 103 mmol/L (98-107) Carbon Dioxide Level 22 mmol/L (21-32) Anion Gap 7 (6-14) Blood Urea Nitrogen 8 mg/dL (7-20) Creatinine 0.6 mg/dL (0.6-1.0) Estimated GFR (Cockcroft-Gault) 121.8 Glucose Level 128 mg/dL (70-99) Calcium Level 7.7 mg/dL (8.5-10.1) Phosphorus Level 3.6 mg/dL (2.6-4.7) Magnesium Level 1.4 mg/dL (1.8-2.4) Problem List wound care ct reviewed Justicifation of Admission Dx: Justifications for Admission: Justification of Admission Dx: Yes ANDERSON LOPEZ MD 12/19/19 0625: SURGICAL PROGRESS NOTE Assessment/Plan CT reviewed no drainable fluid collections. Continue with wound care. Agree with Velia's assessment and plan. JULY SUGGS APRN Dec 18, 2019 14:34 ANDERSON LOPEZ MD Dec 19, 2019 06:25
[2019-12-18 15:00] VITALS: BP 103/63
--- NOTE | 2019-12-18 15:04 | NUR ---
Wound Care Wound care consult for abd fistulas. Pt cares for her own fistulas with washcloths. Pt has new open area on left lower abd that is draining copious amount of clear yellow fluid. Pt cleansed area and applied strip of aquacel ag with abd pad and towels. Pt will change as needed for drainage. Will check on pt tomorrow to see if it is working to help control drainage.
--- NOTE | 2019-12-18 16:47 | NUR ---
SW following. SW reviewed chart and spoke with RN. SW familiar with this pt from previous admission. Pt from home with family. Pt has TPN at home through [facility], ; fax [phone]. Pt was also on services with [facility], ; fax [phone]. Pt on IV abx and TPN. Pt declines SNU referrals. SW to continue following.
[2019-12-18 19:00] VITALS: BP 116/68
--- NOTE | 2019-12-18 20:14 | PN ---
DATE: LOCATION: The patient's room is #663. SUBJECTIVE: The patient is sitting upright in bed. She states she feels better. Her wound is opened up and drained out a lot of fluid collection that she felt her pressure has been relieved. She denies any active fevers or chills or sweats. Currently, no gross shortness of air. OBJECTIVE: VITAL SIGNS: Temperature 98.3, pulse 97, respirations 16, blood pressure 114/71 and satting 100% on room air. GENERAL: She is sitting upright in bed. She looks comfortable. She is in no acute distress. HEENT: Oral cavity, pharynx is clear. She is a little cachectic. NECK: Supple, no JVD. LUNGS: Clear. HEART: S1, S2. Right-sided catheter without signs of complications. ABDOMEN: Nondistended, mild excoriations. There is some clear drainage. She has got two wounds in her left lower quadrant. There appeared to be clean the midline wound without gross contamination. EXTREMITIES: No clubbing, cyanosis or gross edema. SKIN: Warm to touch without signs of rash. NEUROLOGIC: She is alert and appropriate. LABORATORY DATA: White count 5, hemoglobin 8.7, platelets 602, neutrophils 67 and lymphs are 16. Glucose was 128. Current lactic acid was 1.1 on the 4th. All cultures are negative. Chest x-ray from the 5th without acute process. ASSESSMENT: 1. Left lower quadrant wounds had some purulent drainage but they appear to have opened up and drained some fluid. She is feeling better. 2. VANCOMYCIN allergy. 3. Enterocutaneous fistula. 4. Enterovesicular fistula. 5. Malnutrition. 6. History of Clostridium difficile. RECOMMENDATIONS: For now, we will continue the antimicrobials. She is on Zyvox, Zosyn and twice a day oral vancomycin. We will follow up labs and cultures and hopefully taper her antibiotics shortly. ABBY MOTT MD DR: DUNCAN/jd JOB#: [id number] / [id number] ROHITH
[2019-12-18] MEDS: ZOLPIDEM 5 MG TABLET. PO SCH (21:59)
[2019-12-18] MEDS ORDERED: AMINO ACID IV SCH (22:00)
[2019-12-18] MEDS ORDERED: [UNRECOGNIZED DRUG - OTHER] IV SCH (22:00)
[2019-12-18] MEDS ORDERED: TOTAL PARENTERAL NUTRITION IV SCH (22:00)
[2019-12-18] MEDS ORDERED: DEXTROSE 70% IV SCH (22:00)
[2019-12-18 23:00] VITALS: BP 134/76
[2019-12-19] MEDS: HYDROmorphone 2 MG/ML VIAL IV PRN ×4 (00:45→19:11)
[2019-12-19 03:00] VITALS: BP 125/73
[2019-12-19] MEDS: PIPERACILLIN/TAZOBACTAM 3.375 GM in IV NORMAL SALINE 50ML 50 ML IV SCH ×5 (06:17→23:41)
[2019-12-19 06:44] LABS: BASO % 1 % (0-3); EOS # 0.2 x10^3/uL (0.0-0.7); EOS % 4 % (0-3); HEMATOCRIT 26.7 % (36.0-47.0); HEMOGLOBIN 8.8 g/dL (12.0-15.5); LYMPH # 0.7 x10^3/uL (1.0-4.8); LYMPH % 15 % (24-48); MEAN CORPUSCULAR HEMOGLOBIN 29 pg (25-35); MEAN CORPUSCULAR HGB CONC 33 g/dL (31-37); MEAN CORPUSCULAR VOLUME 87 fL (79-100); MONO # 0.5 x10^3/uL (0.0-1.1); MONO % 9 % (0-9); NEUT # 3.4 x10^3/uL (1.8-7.7); NEUT % 71 % (31-73); PLATELET COUNT 620 x10^3/uL (140-400); RED BLOOD COUNT 3.05 x10^6/uL (3.50-5.40); WHITE BLOOD COUNT 4.9 x10^3/uL (4.0-11.0)
[2019-12-19 07:00] VITALS: BP 108/57
[2019-12-19 07:18] LABS: CREATININE 0.6 mg/dL (0.6-1.0); GFR 121.8; MAGNESIUM 2.2 mg/dL (1.8-2.4); PHOSPHORUS 3.2 mg/dL (2.6-4.7); POTASSIUM 4.1 mmol/L (3.5-5.1)
[2019-12-19] MEDS: LACTOBACILLUS RHAMNOSUS GG 1 CAPSULE. PO SCH ×2 (09:10→21:26)
[2019-12-19] MEDS: SERTRALINE 50 MG TABLET. PO SCH (09:11)
[2019-12-19] MEDS: PANTOPRAZOLE 40 MG TABLET.DR. PO SCH (09:11)
[2019-12-19] MEDS: MUPIROCIN 2 % NASAL OINTMENT 22GM TUBE. TP SCH ×2 (09:11→21:27)
[2019-12-19] MEDS: VANCOMYCIN 125 MG/2.5 ML ORAL SOLUTION. PO SCH ×2 (09:11→21:26)
[2019-12-19] MEDS: ZINC OXIDE 20% TOPICAL OINTMENT 28GM TUBE. TP SCH ×2 (09:12→21:27)
[2019-12-19] MEDS: LIDOCAINE 2% TOPICAL JELLY 30GM TUBE. TP SCH ×2 (09:12→21:27)
--- NOTE | 2019-12-19 09:50 | PDOC ---
Infectious Disease Note Subjective Subjective Feeling ok but has some more swelling in abd. No pain but usually drains after she gets up No F/c/S//N/V/D/SOA/rash ROS ROS o/w neg Vital Sign Vital Signs Vital Signs Date Time Temp Pulse Resp B/P (MAP) Pulse Ox O2 Delivery O2 Flow Rate FiO2 12/19/19 07:00 98.5 94 18 108/57 (74) 97 Room Air 98.5 Physical Exam PHYSICAL EXAM GENERAL: She is sitting upright in bed. She looks comfortable. She is in no acute distress. HEENT: Oral cavity, pharynx is clear. She is a little cachectic. NECK: Supple, no JVD. LUNGS: Clear. HEART: S1, S2. Right-sided catheter without signs of complications. ABDOMEN: Nondistended, mild excoriations. There is some clear drainage. She has two wounds in her left lower quadrant. There appeared to be clean the midline wound without gross contamination. Left abd side with some increased fluctuation. No tenderness/warmth/erythema EXTREMITIES: No clubbing, cyanosis or gross edema. SKIN: Warm to touch without signs of rash. NEUROLOGIC: She is alert and appropriate Labs Lab Laboratory Tests Test 12/19/19 06:00 White Blood Count 4.9 x10^3/uL (4.0-11.0) Red Blood Count 3.05 x10^6/uL (3.50-5.40) Hemoglobin 8.8 g/dL (12.0-15.5) Hematocrit 26.7 % (36.0-47.0) Mean Corpuscular Volume 87 fL (79-100) Mean Corpuscular Hemoglobin 29 pg (25-35) Mean Corpuscular Hemoglobin Concent 33 g/dL (31-37) Red Cell Distribution Width 18.0 % (11.5-14.5) Platelet Count 620 x10^3/uL (140-400) Neutrophils (%) (Auto) 71 % (31-73) Lymphocytes (%) (Auto) 15 % (24-48) Monocytes (%) (Auto) 9 % (0-9) Eosinophils (%) (Auto) 4 % (0-3) Basophils (%) (Auto) 1 % (0-3) Neutrophils # (Auto) 3.4 x10^3/uL (1.8-7.7) Lymphocytes # (Auto) 0.7 x10^3/uL (1.0-4.8) Monocytes # (Auto) 0.5 x10^3/uL (0.0-1.1) Eosinophils # (Auto) 0.2 x10^3/uL (0.0-0.7) Basophils # (Auto) 0.0 x10^3/uL (0.0-0.2) Sodium Level 137 mmol/L (136-145) Potassium Level 4.1 mmol/L (3.5-5.1) Chloride Level 103 mmol/L (98-107) Carbon Dioxide Level 30 mmol/L (21-32) Anion Gap 4 (6-14) Blood Urea Nitrogen 17 mg/dL (7-20) Creatinine 0.6 mg/dL (0.6-1.0) Estimated GFR (Cockcroft-Gault) 121.8 Glucose Level 109 mg/dL (70-99) Calcium Level 8.0 mg/dL (8.5-10.1) Phosphorus Level 3.2 mg/dL (2.6-4.7) Magnesium Level 2.2 mg/dL (1.8-2.4) Micro Microbiology 12/17/19 Gram Stain - Final, Resulted 12/17/19 Aerobic and Anaerobic Culture, Resulted Pending 12/16/19 Blood Culture - Preliminary, Resulted NO GROWTH AFTER 2 DAYS Objective Assessment ASSESSMENT: 1. Left lower quadrant wounds had some purulent drainage but they appear to have opened up and drained some fluid. She is feeling better. GNR - ? colonization collected from drainage on abd and with fistula 2. VANCOMYCIN allergy. 3. Enterocutaneous fistula. 4. Enterovesicular fistula. 5. Malnutrition. 6. History of Clostridium difficile. Plan Plan of Care D/c Zyvox but cont Zosyn add po vancomycin BID Await surgical f/u and monitor LLQ area f/u cultures Monitor labs/temp Local wound care May need repeat imaging ABBY MOTT MD Dec 19, 2019 09:50
--- NOTE | 2019-12-19 10:30 | PDOC ---
PROGRESS NOTES Subjective Subjective feels better. has some LLQ abdominal pain and drainage and will order an abdominal ultrasound to check for abdominal wall fluid collections or abscesses. Objective Objective Vital Signs Date Time Temp Pulse Resp B/P (MAP) Pulse Ox O2 Delivery O2 Flow Rate FiO2 12/19/19 07:00 98.5 94 18 108/57 (74) 97 Room Air 98.5 Intake and Output 12/19/19 06:59 Intake Total 2800 ml Balance 2800 ml Intake Oral 600 ml IV Total 2200 ml # Voids 5 # Bowel Movements 4 Physical Exam Abdomen: Soft, Other (EC fistula with drainage. some drainge out of LLQ abdominal wall wound) Heart: Regular rate, Normal S1, Normal S2 Extremities: No edema General: Alert HEENT: Atraumatic Lungs: Clear to auscultation Neuro: Normal speech Psych/Mental Status: Mental status NL Skin: Other (LLQ abdominal wall wounds. EC fistula with drainage) Assessment Assessment 1. Fever. resolved 2. LLQ abdominal wall drainage 3. Enterocutaneous fistula. 4. Enterovesical fistula. 5. New abdominal wounds in the left lower quadrant of the abdomen near the groin. 6. Severe protein-calorie malnutrition. 7. Anemia of chronic disease. 8. Enterovesical fistula. 9. Chronic abdominal pain secondary to adhesions. previous history of C . diff\ hypomagnesemia resolved Plan Plan of Care continue iv zosyn continue TPN abdominal ultrasound analgesics prn Comment Review of Relevant I have reviewed the following items lucila (where applicable) has been applied. Labs Laboratory Tests Test 12/17/19 12:20 12/18/19 04:31 12/19/19 06:00 Triglycerides Level 48 mg/dL (0-150) White Blood Count 5.0 x10^3/uL (4.0-11.0) 4.9 x10^3/uL (4.0-11.0) Red Blood Count 2.95 x10^6/uL (3.50-5.40) 3.05 x10^6/uL (3.50-5.40) Hemoglobin 8.7 g/dL (12.0-15.5) 8.8 g/dL (12.0-15.5) Hematocrit 26.0 % (36.0-47.0) 26.7 % (36.0-47.0) Mean Corpuscular Volume 88 fL (79-100) 87 fL (79-100) Mean Corpuscular Hemoglobin 29 pg (25-35) 29 pg (25-35) Mean Corpuscular Hemoglobin Concent 33 g/dL (31-37) 33 g/dL (31-37) Red Cell Distribution Width 17.9 % (11.5-14.5) 18.0 % (11.5-14.5) Platelet Count 602 x10^3/uL (140-400) 620 x10^3/uL (140-400) Neutrophils (%) (Auto) 67 % (31-73) 71 % (31-73) Lymphocytes (%) (Auto) 16 % (24-48) 15 % (24-48) Monocytes (%) (Auto) 11 % (0-9) 9 % (0-9) Eosinophils (%) (Auto) 5 % (0-3) 4 % (0-3) Basophils (%) (Auto) 1 % (0-3) 1 % (0-3) Neutrophils # (Auto) 3.3 x10^3/uL (1.8-7.7) 3.4 x10^3/uL (1.8-7.7) Lymphocytes # (Auto) 0.8 x10^3/uL (1.0-4.8) 0.7 x10^3/uL (1.0-4.8) Monocytes # (Auto) 0.5 x10^3/uL (0.0-1.1) 0.5 x10^3/uL (0.0-1.1) Eosinophils # (Auto) 0.3 x10^3/uL (0.0-0.7) 0.2 x10^3/uL (0.0-0.7) Basophils # (Auto) 0.0 x10^3/uL (0.0-0.2) 0.0 x10^3/uL (0.0-0.2) Sodium Level 132 mmol/L (136-145) 137 mmol/L (136-145) Potassium Level 3.9 mmol/L (3.5-5.1) 4.1 mmol/L (3.5-5.1) Chloride Level 103 mmol/L (98-107) 103 mmol/L (98-107) Carbon Dioxide Level 22 mmol/L (21-32) 30 mmol/L (21-32) Anion Gap 7 (6-14) 4 (6-14) Blood Urea Nitrogen 8 mg/dL (7-20) 17 mg/dL (7-20) Creatinine 0.6 mg/dL (0.6-1.0) 0.6 mg/dL (0.6-1.0) Estimated GFR (Cockcroft-Gault) 121.8 121.8 Glucose Level 128 mg/dL (70-99) 109 mg/dL (70-99) Calcium Level 7.7 mg/dL (8.5-10.1) 8.0 mg/dL (8.5-10.1) Phosphorus Level 3.6 mg/dL (2.6-4.7) 3.2 mg/dL (2.6-4.7) Magnesium Level 1.4 mg/dL (1.8-2.4) 2.2 mg/dL (1.8-2.4) Laboratory Tests Test 12/19/19 06:00 White Blood Count 4.9 x10^3/uL (4.0-11.0) Red Blood Count 3.05 x10^6/uL (3.50-5.40) Hemoglobin 8.8 g/dL (12.0-15.5) Hematocrit 26.7 % (36.0-47.0) Mean Corpuscular Volume 87 fL (79-100) Mean Corpuscular Hemoglobin 29 pg (25-35) Mean Corpuscular Hemoglobin Concent 33 g/dL (31-37) Red Cell Distribution Width 18.0 % (11.5-14.5) Platelet Count 620 x10^3/uL (140-400) Neutrophils (%) (Auto) 71 % (31-73) Lymphocytes (%) (Auto) 15 % (24-48) Monocytes (%) (Auto) 9 % (0-9) Eosinophils (%) (Auto) 4 % (0-3) Basophils (%) (Auto) 1 % (0-3) Neutrophils # (Auto) 3.4 x10^3/uL (1.8-7.7) Lymphocytes # (Auto) 0.7 x10^3/uL (1.0-4.8) Monocytes # (Auto) 0.5 x10^3/uL (0.0-1.1) Eosinophils # (Auto) 0.2 x10^3/uL (0.0-0.7) Basophils # (Auto) 0.0 x10^3/uL (0.0-0.2) Sodium Level 137 mmol/L (136-145) Potassium Level 4.1 mmol/L (3.5-5.1) Chloride Level 103 mmol/L (98-107) Carbon Dioxide Level 30 mmol/L (21-32) Anion Gap 4 (6-14) Blood Urea Nitrogen 17 mg/dL (7-20) Creatinine 0.6 mg/dL (0.6-1.0) Estimated GFR (Cockcroft-Gault) 121.8 Glucose Level 109 mg/dL (70-99) Calcium Level 8.0 mg/dL (8.5-10.1) Phosphorus Level 3.2 mg/dL (2.6-4.7) Magnesium Level 2.2 mg/dL (1.8-2.4) Microbiology 12/17/19 Gram Stain - Final, Resulted 12/17/19 Aerobic and Anaerobic Culture - Preliminary, Resulted 12/16/19 Blood Culture - Preliminary, Resulted NO GROWTH AFTER 2 DAYS Medications Current Medications Hydromorphone HCl (Dilaudid) 1 mg 1X ONCE IV Last administered on 12/16/19at 18:56; Start 12/16/19 at 18:45; Stop 12/16/19 at 18:46; Status DC Ondansetron HCl (Zofran) 4 mg 1X ONCE IVP Last administered on 12/16/19at 18:56; Start 12/16/19 at 18:45; Stop 12/16/19 at 18:46; Status DC Sodium Chloride 1,000 ml @ 1,000 mls/hr 1X ONCE IV Last administered on 12/16/19at 19:47; Start 12/16/19 at 18:45; Stop 12/16/19 at 19:44; Status DC Ondansetron HCl (Zofran) 4 mg PRN Q8HRS PRN IV NAUSEA/VOMITING; Start 12/16/19 at 20:15; Stop 12/17/19 at 20:14; Status DC Dextrose/Sodium Chloride 1,000 ml @ 75 mls/hr 1X ONCE IV Last administered on 12/16/19at 21:41; Start 12/16/19 at 20:15; Stop 12/17/19 at 09:34; Status DC Hydromorphone HCl (Dilaudid) 2 mg PRN Q4HRS PRN IV PAIN Last administered on 12/17/19at 08:06; Start 12/16/19 at 20:15; Stop 12/17/19 at 10:25; Status DC Zolpidem Tartrate (Ambien) 5 mg QHS PO Last administered on 12/18/19at 21:59; Start 12/16/19 at 21:00 Linezolid/Dextrose 300 ml @ 300 mls/hr Q12HR IV Last administered on 12/19/19 09:11; Start 12/17/19 at 09:00; Stop 12/19/19 at 10:08; Status DC Piperacillin Sod/ Tazobactam Sod 3.375 gm/Sodium Chloride 50 ml @ 100 mls/hr Q6HRS IV Last administered on 12/19/19at 06:17; Start 12/17/19 at 01:00 Linezolid/Dextrose 300 ml @ 300 mls/hr ONCE ONCE IV Last administered on 12/16/19at 22:43; Start 12/16/19 at 21:00; Stop 12/16/19 at 21:59; Status DC Piperacillin Sod/ Tazobactam Sod 3.375 gm/Sodium Chloride 50 ml @ 100 mls/hr ONCE ONCE IV Last administered on 12/16/19at 20:46; Start 12/16/19 at 20:30; Stop 12/16/19 at 20:59; Status DC Neomycin/ Polymyxin/ Bacitracin (Triple Antibiotic Ointment) 1 pkt STK-MED ONCE TP ; Start 12/16/19 at 20:36; Stop 12/16/19 at 20:37; Status DC Mupirocin (Bactroban) 1 sang BID TP Last administered on 12/19/19at 09:11; Start 12/17/19 at 09:00 Hydromorphone HCl (Dilaudid) 1 mg PRN Q4HRS PRN IV PAIN Last administered on 12/18/19at 14:34; Start 12/17/19 at 10:15; Stop 12/18/19 at 14:40; Status DC Acetaminophen (Tylenol) 650 mg PRN Q6HRS PRN PO MILD PAIN / TEMP > 100.3'F Last administered on 12/18/19 13:32; Start 12/17/19 at 10:15 Zinc Oxide (Zinc Oxide 20% Topical) 1 sang BID TP Last administered on 12/19/19 09:12; Start 12/17/19 at 11:00 Lidocaine HCl (Xylocaine 2% Topical 30gm Tube) 1 sang BID TP Last administered on 12/19/19 09:12; Start 12/17/19 at 11:00 Lorazepam (Ativan) 0.5 mg PRN Q6HRS PRN PO ANXIETY / AGITATION; Start 12/17/19 at 10:15 Ondansetron HCl (Zofran Odt) 4 mg PRN Q6HRS PRN PO NAUSEA/VOMITING; Start 12/17/19 at 10:15 Pantoprazole Sodium (Protonix) 40 mg DAILYAC PO Last administered on 12/19/19 09:11; Start 12/17/19 at 11:00 Dextrose/Sodium Chloride 1,000 ml @ 75 mls/hr [id number] IV Last administered on 12/17/19 10:45; Start 12/17/19 at 10:15; Stop 12/17/19 at 21:59; Status DC Sertraline HCl (Zoloft) 50 mg DAILY PO Last administered on 12/19/19 09:11; Start 12/17/19 at 11:00 Info (Tpn Per Pharmacy) 1 each PRN DAILY PRN MC SEE COMMENTS Last administered on 12/18/19 12:32; Start 12/17/19 at 11:00 Sodium Chloride 120 meq/Sodium Acetate 120 meq/ Potassium Acetate 30 meq/Potassium Phosphate 22 mmol/ Magnesium Sulfate 24 meq/Calcium Gluconate 10 meq/ Multivitamins 10 ml/Chromium/ Copper/Manganese/ Seleni/Zn 1 ml/ Total Parenteral Nutrition/Amino Acids/Dextrose/ Fat Emulsion Intravenous 1,920 ml @ 80 mls/hr TPN CONT IV Last administered on 12/17/19 22:49; Start 12/17/19 at 22:00; Stop 12/18/19 at 21:59; Status DC Lactobacillus Rhamnosus (Culturelle) 1 cap BID PO Last administered on 7/7/20at 09:10; Start 12/17/19 at 21:00 Vancomycin HCl (Vancomycin Oral Solution) 125 mg BID PO Last administered on 12/19/19at 09:11; Start 12/17/19 at 21:00 Magnesium Sulfate 100 ml @ 25 mls/hr 1X ONCE IV Last administered on 12/18/19at 11:00; Start 12/18/19 at 11:00; Stop 12/18/19 at 14:59; Status DC Sodium Chloride 120 meq/Sodium Acetate 120 meq/ Potassium Acetate 30 meq/Potassium Phosphate 22 mmol/ Magnesium Sulfate 24 meq/Calcium Gluconate 10 meq/ Multivitamins 10 ml/Chromium/ Copper/Manganese/ Seleni/Zn 1 ml/ Total Parenteral Nutrition/Amino Acids/Dextrose/ Fat Emulsion Intravenous 1,885 ml @ 78.542 mls/ hr TPN CONT IV Last administered on 12/18/19at 22:10; Start 12/18/19 at 22:00; Stop 12/19/19 at 21:59 Hydromorphone HCl (Dilaudid) 2 mg PRN Q6HRS PRN IV SEVERE PAIN Last administered on 12/19/19at 06:18; Start 12/18/19 at 14:45 Active Scripts Active Dilaudid (Hydromorphone Hcl) 2 Mg Tablet 1 Tab PO Q6HRS PRN MDD 4 Tablet(s) Pantoprazole Sodium (Pantoprazole Sodium) 40 Mg Tablet.dr 40 Mg PO DAILYAC Tylenol (Acetaminophen) 325 Mg Tablet 650 Mg PO PRN Q6HRS PRN [Pantoprazole] 40 MG Tablet.dr 40 Mg PO DAILYAC 30 Days Zinc Oxide 56.7 Gm Oint...g. 1 Sang TP BID Ambien (Zolpidem Tartrate) 5 Mg Tablet 5 Mg PO PRN QHS PRN 30 Days [Tpn Per Pharmacy] 1 EACH Each 1 Each MC PRN DAILY PRN TPN at 85cc/hour Sertraline Hcl 50 Mg Tablet 50 Mg PO DAILY 30 Days Lidocaine 35.44 Gm Oint...g. 1 Sang TP BID Reported Ondansetron Hcl 4 Mg Tablet 4 Mg PO PRN Q6HRS PRN Lorazepam 0.5 Mg Tablet 0.5 Mg PO Q6HRS PRN Vitals/I & O Vital Sign - Last 24 Hours 7/6/12/18/19 12/18/19 12/18/19 11:00 15:00 19:00 20:00 Temp 98.3 98.1 97.3 98.3 98.1 97.3 Pulse 97 82 87 Resp 16 16 18 B/P (MAP) 114/71 (85) 103/63 (76) 116/68 (84) Pulse Ox 100 98 100 O2 Delivery Room Air Room Air Room Air Room Air 12/18/19 12/19/19 12/19/19 12/19/19 23:00 00:45 01:15 03:00 Temp 97.8 98.6 97.8 98.6 Pulse 89 89 Resp 18 17 17 18 B/P (MAP) 134/76 (95) 125/73 (90) Pulse Ox 100 100 O2 Delivery Room Air Room Air Room Air Room Air 12/19/19 12/19/19 06:18 07:00 Temp 98.5 98.5 Pulse 94 Resp 18 18 B/P (MAP) 108/57 (74) Pulse Ox 97 O2 Delivery Room Air Room Air Intake and Output0 12/18/19 12/18/19 12/19/19 14:59 22:59 06:59 Intake Total 350 ml 2250 ml 200 ml Balance 350 ml 2250 ml 200 ml Justicifation of Admission Dx: Justifications for Admission: Justification of Admission Dx: Yes Nutrition Consultation Dietary Evaluation: Recommendations by RD: Dietary education by RD, PPN/TPN Comments: REC continue home TPN and diet as tolerated Expected Outcomes/Goals: to meet >75% est nutr needs Malnutrition Findings: Muscle Mass (Severe): Severe Depletion Body Fat Depletion (Non Severe: Mod to Severe Weight Status: Underweight BENITA LUTZ MD Dec 19, 2019 10:30
[2019-12-19 11:00] VITALS: BP 128/71
[2019-12-19] MEDS: TPN PER PHARMACY MC PRN (12:44)
--- NOTE | 2019-12-19 12:47 | NUR ---
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 TPN started B:Pertinent PMH: EC fistula Height: 5 feet, 1 inches Weight: 47.2 kg Current diet: GI soft LABS: Sodium: 137 Potassium: 4.1 Chloride: 103 Calcium: 8.0 Corrected Calcium: 9.76 Magnesium: 2.2 CO2: 30 SCr: 0.6 Glucose: 109 Albumin: 1.8 AST: 13 ALT: <6 TPN FORMULA: TPN TYPE: Central Continuous AMINO ACIDS: 90 gm DEXTROSE: 285 gm LIPIDS: 35 gm SODIUM CHLORIDE: 120 mEq SODIUM ACETATE: 120 mEq SODIUM PHOSPHATE: - mmol POTASSIUM CHLORIDE: - mEq POTASSIUM ACETATE: 30 mEq POTASSIUM PHOSPHATE: 22 mmol MAGNESIUM: 24 mEq CALCIUM: 10 mEq INSULIN: - units MULTIPLE VITAMIN: 10 ml TRACE ELEMENTS: MTE 5 1 ml ml(s) TPN PLAN: 12/18 continue same TPN, Repeat labs in AM. R: Continue TPN as ordered Will monitor electrolytes, glucose, and tolerance to TPN. MOHINDER JOSE, [facility], 12/19/19 [id number]
--- NOTE | 2019-12-19 13:23 | NUR ---
SW following. Discharge plan remains home with HH and TPN through [facility]. Pt to continue on IV Zosyn. Pt remains on room air and TPN. SW to continue following.
--- NOTE | 2019-12-19 14:17 | RAD ---
ABDOMEN LTD History:Abdominal pain. Check for abdomiinal wall abscess or fluid collection / Spl. Instructions: / History: Comparison: CT December 17, 2019 Technique: Sonographic examination of the abdominal wall Findings: Anterior abdominal wall subcutaneous abscess measures 1.2 x 2.2 cm with claudication to the skin and reported active drainage. There is adjacent subcutaneous edema. Impression: 1. Anterior abdominal wall abscess extending to the cutaneous surface. Electronically signed by: Roberto Salazar DO (12/19/2019 2:13 PM) [id number]
--- NOTE | 2019-12-19 14:29 | PDOC ---
SURGICAL PROGRESS NOTE Subjective Patient feeling better today less pain still having drainage from midline wound Vital Signs Vital Signs Date Time Temp Pulse Resp B/P (MAP) Pulse Ox O2 Delivery O2 Flow Rate FiO2 12/19/19 13:15 19 100 Room Air 12/19/19 11:00 98.2 87 128/71 (90) 98.2 I&O Intake and Output 12/19/19 07:00 Intake Total 2800 ml Balance 2800 ml Intake Oral 600 ml IV Total 2200 ml # Voids 5 # Bowel Movements 4 PATIENT HAS A GUPTA: No General: Alert, Oriented X3, Cooperative, mild distress Abdomen: Normal bowel sounds, Soft, Other (decrreased erythema, drainage from midline wound) Labs Laboratory Tests Test 12/18/19 04:31 12/19/19 06:00 White Blood Count 5.0 x10^3/uL (4.0-11.0) 4.9 x10^3/uL (4.0-11.0) Red Blood Count 2.95 x10^6/uL (3.50-5.40) 3.05 x10^6/uL (3.50-5.40) Hemoglobin 8.7 g/dL (12.0-15.5) 8.8 g/dL (12.0-15.5) Hematocrit 26.0 % (36.0-47.0) 26.7 % (36.0-47.0) Mean Corpuscular Volume 88 fL (79-100) 87 fL (79-100) Mean Corpuscular Hemoglobin 29 pg (25-35) 29 pg (25-35) Mean Corpuscular Hemoglobin Concent 33 g/dL (31-37) 33 g/dL (31-37) Red Cell Distribution Width 17.9 % (11.5-14.5) 18.0 % (11.5-14.5) Platelet Count 602 x10^3/uL (140-400) 620 x10^3/uL (140-400) Neutrophils (%) (Auto) 67 % (31-73) 71 % (31-73) Lymphocytes (%) (Auto) 16 % (24-48) 15 % (24-48) Monocytes (%) (Auto) 11 % (0-9) 9 % (0-9) Eosinophils (%) (Auto) 5 % (0-3) 4 % (0-3) Basophils (%) (Auto) 1 % (0-3) 1 % (0-3) Neutrophils # (Auto) 3.3 x10^3/uL (1.8-7.7) 3.4 x10^3/uL (1.8-7.7) Lymphocytes # (Auto) 0.8 x10^3/uL (1.0-4.8) 0.7 x10^3/uL (1.0-4.8) Monocytes # (Auto) 0.5 x10^3/uL (0.0-1.1) 0.5 x10^3/uL (0.0-1.1) Eosinophils # (Auto) 0.3 x10^3/uL (0.0-0.7) 0.2 x10^3/uL (0.0-0.7) Basophils # (Auto) 0.0 x10^3/uL (0.0-0.2) 0.0 x10^3/uL (0.0-0.2) Sodium Level 132 mmol/L (136-145) 137 mmol/L (136-145) Potassium Level 3.9 mmol/L (3.5-5.1) 4.1 mmol/L (3.5-5.1) Chloride Level 103 mmol/L (98-107) 103 mmol/L (98-107) Carbon Dioxide Level 22 mmol/L (21-32) 30 mmol/L (21-32) Anion Gap 7 (6-14) 4 (6-14) Blood Urea Nitrogen 8 mg/dL (7-20) 17 mg/dL (7-20) Creatinine 0.6 mg/dL (0.6-1.0) 0.6 mg/dL (0.6-1.0) Estimated GFR (Cockcroft-Gault) 121.8 121.8 Glucose Level 128 mg/dL (70-99) 109 mg/dL (70-99) Calcium Level 7.7 mg/dL (8.5-10.1) 8.0 mg/dL (8.5-10.1) Phosphorus Level 3.6 mg/dL (2.6-4.7) 3.2 mg/dL (2.6-4.7) Magnesium Level 1.4 mg/dL (1.8-2.4) 2.2 mg/dL (1.8-2.4) Laboratory Tests Test 12/19/19 06:00 White Blood Count 4.9 x10^3/uL (4.0-11.0) Red Blood Count 3.05 x10^6/uL (3.50-5.40) Hemoglobin 8.8 g/dL (12.0-15.5) Hematocrit 26.7 % (36.0-47.0) Mean Corpuscular Volume 87 fL (79-100) Mean Corpuscular Hemoglobin 29 pg (25-35) Mean Corpuscular Hemoglobin Concent 33 g/dL (31-37) Red Cell Distribution Width 18.0 % (11.5-14.5) Platelet Count 620 x10^3/uL (140-400) Neutrophils (%) (Auto) 71 % (31-73) Lymphocytes (%) (Auto) 15 % (24-48) Monocytes (%) (Auto) 9 % (0-9) Eosinophils (%) (Auto) 4 % (0-3) Basophils (%) (Auto) 1 % (0-3) Neutrophils # (Auto) 3.4 x10^3/uL (1.8-7.7) Lymphocytes # (Auto) 0.7 x10^3/uL (1.0-4.8) Monocytes # (Auto) 0.5 x10^3/uL (0.0-1.1) Eosinophils # (Auto) 0.2 x10^3/uL (0.0-0.7) Basophils # (Auto) 0.0 x10^3/uL (0.0-0.2) Sodium Level 137 mmol/L (136-145) Potassium Level 4.1 mmol/L (3.5-5.1) Chloride Level 103 mmol/L (98-107) Carbon Dioxide Level 30 mmol/L (21-32) Anion Gap 4 (6-14) Blood Urea Nitrogen 17 mg/dL (7-20) Creatinine 0.6 mg/dL (0.6-1.0) Estimated GFR (Cockcroft-Gault) 121.8 Glucose Level 109 mg/dL (70-99) Calcium Level 8.0 mg/dL (8.5-10.1) Phosphorus Level 3.2 mg/dL (2.6-4.7) Magnesium Level 2.2 mg/dL (1.8-2.4) Assessment/Plan EC fistula with subcutaneous chronic draining wound U/S shows fluid in this subcutaneous space actively draining Continue wound care since it is draining would not plan for surgery Justicifation of Admission Dx: Justifications for Admission: Justification of Admission Dx: Yes ANDERSON LOPEZ MD Dec 19, 2019 14:29
[2019-12-19 15:05] VITALS: BP 114/70
[2019-12-19 19:37] VITALS: BP 117/66
[2019-12-19] MEDS: ZOLPIDEM 5 MG TABLET. PO SCH (21:26)
[2019-12-19] MEDS ORDERED: DEXTROSE 70% IV SCH (22:00)
[2019-12-19] MEDS ORDERED: TOTAL PARENTERAL NUTRITION IV SCH (22:00)
[2019-12-19] MEDS ORDERED: AMINO ACID IV SCH (22:00)
[2019-12-19] MEDS ORDERED: [UNRECOGNIZED DRUG - OTHER] IV SCH (22:00)
[2019-12-19 23:55] VITALS: BP 137/66
[2019-12-20] MEDS: HYDROmorphone 2 MG/ML VIAL IV PRN ×4 (02:09→20:50)
[2019-12-20 05:04] LABS: CALCIUM 8.5 mg/dL (8.5-10.1); CREATININE 0.5 mg/dL (0.6-1.0); GFR 150.3; PHOSPHORUS 3.5 mg/dL (2.6-4.7); POTASSIUM 4.2 mmol/L (3.5-5.1)
[2019-12-20] MEDS: PIPERACILLIN/TAZOBACTAM 3.375 GM in IV NORMAL SALINE 50ML 50 ML IV SCH ×4 (05:27→23:39)
[2019-12-20 07:00] VITALS: BP 99/52
[2019-12-20] MEDS: SERTRALINE 50 MG TABLET. PO SCH (08:43)
[2019-12-20] MEDS: ZINC OXIDE 20% TOPICAL OINTMENT 28GM TUBE. TP SCH ×2 (08:43→21:00)
[2019-12-20] MEDS: PANTOPRAZOLE 40 MG TABLET.DR. PO SCH (08:43)
[2019-12-20] MEDS: MUPIROCIN 2 % NASAL OINTMENT 22GM TUBE. TP SCH ×2 (08:43→21:00)
[2019-12-20] MEDS: VANCOMYCIN 125 MG/2.5 ML ORAL SOLUTION. PO SCH ×2 (08:43→20:49)
[2019-12-20] MEDS: LACTOBACILLUS RHAMNOSUS GG 1 CAPSULE. PO SCH ×2 (08:43→20:50)
[2019-12-20] MEDS: LIDOCAINE 2% TOPICAL JELLY 30GM TUBE. TP SCH ×2 (08:44→21:00)
--- NOTE | 2019-12-20 08:56 | PDOC ---
Infectious Disease Note Subjective Subjective Feeling ok but has some ongoing swelling then draining in abd. No pain but usually drains after she gets up No F/c/S//N/V/D/SOA/rash Vital Sign Vital Signs Vital Signs Date Time Temp Pulse Resp B/P (MAP) Pulse Ox O2 Delivery O2 Flow Rate FiO2 12/20/19 07:00 98.5 85 17 99/52 (68) 99 Room Air 98.5 Physical Exam PHYSICAL EXAM GENERAL: She is sitting upright in bed. She looks comfortable. She is in no acute distress. HEENT: Oral cavity, pharynx is clear. She is a little cachectic. NECK: Supple, no JVD. LUNGS: Clear. HEART: S1, S2. Right-sided catheter without signs of complications. ABDOMEN: Nondistended, mild excoriations. There is some clear drainage. She has two wounds in her left lower quadrant. There appeared to be clean the midline wound without gross contamination. Left abd side with some increased f luctuation. No tenderness/warmth/erythema EXTREMITIES: No clubbing, cyanosis or gross edema. SKIN: Warm to touch without signs of rash. NEUROLOGIC: She is alert and appropriate Labs Lab Laboratory Tests Test 12/20/19 04:30 Sodium Level 137 mmol/L (136-145) Potassium Level 4.2 mmol/L (3.5-5.1) Chloride Level 104 mmol/L (98-107) Carbon Dioxide Level 33 mmol/L (21-32) Anion Gap 0 (6-14) Blood Urea Nitrogen 17 mg/dL (7-20) Creatinine 0.5 mg/dL (0.6-1.0) Estimated GFR (Cockcroft-Gault) 150.3 Glucose Level 120 mg/dL (70-99) Calcium Level 8.5 mg/dL (8.5-10.1) Phosphorus Level 3.5 mg/dL (2.6-4.7) Micro Abd U/S /7Impression: 1. Anterior abdominal wall abscess extending to the cutaneous surface. ANAEROBIC-AEROBIC CULTURE Preliminary Preliminary MIXED AEROBIC ENE on 12/19/19 at 1014 INCLUDING: MODERATE [ESCHERICHIA COLI] MODERATE [PROTEUS MIRABILIS] MODERATE [KLEBSIELLA PNEUMONIAE] ESCHERICHIA COLI PROTEUS MIRABILIS KLEBSIELLA PNEUMONIAE Microbiology 12/17/19 Gram Stain - Final, Resulted 12/17/19 Aerobic and Anaerobic Culture, Resulted Pending 12/16/19 Blood Culture - Preliminary, Resulted NO GROWTH AFTER 2 DAYS Objective Assessment ASSESSMENT: 1. Left lower quadrant wounds had some purulent drainage but they appear to have opened up and drained some fluid. She is feeling better. GNR - ? colonization collected from drainage on abd and with fistula 2. VANCOMYCIN allergy. 3. Enterocutaneous fistula. 4. Enterovesicular fistula. 5. Malnutrition. 6. History of Clostridium difficile. Plan Plan of Care ? If new fistula site or current fistula draining into a new pocket causing swelling and drainage. ? If some additional type of imaging may help ie Small bowel follow through or CT with oral contrast but defer to surgery or maybe GI may help with helping to decide if additional imaging would be helpful D/c Zyvox but cont Zosyn liliana po vancomycin BID Await surgical f/u and monitor LLQ area f/u cultures Monitor labs/temp Local wound care ABBY MOTT MD Dec 20, 2019 08:56
--- NOTE | 2019-12-20 09:53 | PDOC ---
JULY SUGGS PANTRY COOK 12/20/19 0953: SURGICAL PROGRESS NOTE Subjective feels better less drainage today Vital Signs Vital Signs Date Time Temp Pulse Resp B/P (MAP) Pulse Ox O2 Delivery O2 Flow Rate FiO2 12/20/19 07:00 98.5 85 17 99/52 (68) 99 Room Air 98.5 I&O Intake and Output 12/20/19 07:00 Intake Total 970 ml Balance 970 ml Intake Oral 970 ml # Voids 2 General: Alert, Oriented X3, Cooperative Abdomen: Soft, Other (draining wound ) Labs Laboratory Tests Test 12/19/19 06:00 12/20/19 04:30 White Blood Count 4.9 x10^3/uL (4.0-11.0) Red Blood Count 3.05 x10^6/uL (3.50-5.40) Hemoglobin 8.8 g/dL (12.0-15.5) Hematocrit 26.7 % (36.0-47.0) Mean Corpuscular Volume 87 fL (79-100) Mean Corpuscular Hemoglobin 29 pg (25-35) Mean Corpuscular Hemoglobin Concent 33 g/dL (31-37) Red Cell Distribution Width 18.0 % (11.5-14.5) Platelet Count 620 x10^3/uL (140-400) Neutrophils (%) (Auto) 71 % (31-73) Lymphocytes (%) (Auto) 15 % (24-48) Monocytes (%) (Auto) 9 % (0-9) Eosinophils (%) (Auto) 4 % (0-3) Basophils (%) (Auto) 1 % (0-3) Neutrophils # (Auto) 3.4 x10^3/uL (1.8-7.7) Lymphocytes # (Auto) 0.7 x10^3/uL (1.0-4.8) Monocytes # (Auto) 0.5 x10^3/uL (0.0-1.1) Eosinophils # (Auto) 0.2 x10^3/uL (0.0-0.7) Basophils # (Auto) 0.0 x10^3/uL (0.0-0.2) Sodium Level 137 mmol/L (136-145) 137 mmol/L (136-145) Potassium Level 4.1 mmol/L (3.5-5.1) 4.2 mmol/L (3.5-5.1) Chloride Level 103 mmol/L (98-107) 104 mmol/L (98-107) Carbon Dioxide Level 30 mmol/L (21-32) 33 mmol/L (21-32) Anion Gap 4 (6-14) 0 (6-14) Blood Urea Nitrogen 17 mg/dL (7-20) 17 mg/dL (7-20) Creatinine 0.6 mg/dL (0.6-1.0) 0.5 mg/dL (0.6-1.0) Estimated GFR (Cockcroft-Gault) 121.8 150.3 Glucose Level 109 mg/dL (70-99) 120 mg/dL (70-99) Calcium Level 8.0 mg/dL (8.5-10.1) 8.5 mg/dL (8.5-10.1) Phosphorus Level 3.2 mg/dL (2.6-4.7) 3.5 mg/dL (2.6-4.7) Magnesium Level 2.2 mg/dL (1.8-2.4) Laboratory Tests Test 12/20/19 04:30 Sodium Level 137 mmol/L (136-145) Potassium Level 4.2 mmol/L (3.5-5.1) Chloride Level 104 mmol/L (98-107) Carbon Dioxide Level 33 mmol/L (21-32) Anion Gap 0 (6-14) Blood Urea Nitrogen 17 mg/dL (7-20) Creatinine 0.5 mg/dL (0.6-1.0) Estimated GFR (Cockcroft-Gault) 150.3 Glucose Level 120 mg/dL (70-99) Calcium Level 8.5 mg/dL (8.5-10.1) Phosphorus Level 3.5 mg/dL (2.6-4.7) Assessment/Plan continue wound care Justicifation of Admission Dx: Justifications for Admission: Justification of Admission Dx: Yes ANDERSON LOPEZ MD 12/20/19 1244: SURGICAL PROGRESS NOTE Assessment/Plan Patient seen and examined by me overall feeling better spoke with IR about placing drain at this point area of fluid collection is quite small and spontaneously draining. At this point would favor no intervention continue local wound care. Agree with Riley assessment and JULY Pandey APRN Dec 20, 2019 09:53 ANDERSON LOPEZ MD Dec 20, 2019 12:44
[2019-12-20 10:49] VITALS: BP 111/48
--- NOTE | 2019-12-20 10:57 | PDOC ---
PROGRESS NOTES Subjective Subjective feels better. abdominal ultrasound shows a possible abdominal wall abscess. Objective Objective Vital Signs Date Time Temp Pulse Resp B/P (MAP) Pulse Ox O2 Delivery O2 Flow Rate FiO2 12/20/19 10:49 98.2 90 17 111/48 (69) 98 Room Air 98.2 Intake and Output 12/20/19 07:00 Intake Total 970 ml Balance 970 ml Intake Oral 970 ml # Voids 2 Physical Exam Abdomen: Soft, Other (EC fistula with increased drainage) Heart: Regular rate, Normal S1, Normal S2 Extremities: No edema General: Alert HEENT: Atraumatic Lungs: Clear to auscultation Neuro: Normal speech Psych/Mental Status: Mental status NL Skin: No rashes Assessment Assessment 1. Fever. resolved 2. LLQ abdominal wall drainage 3. Enterocutaneous fistula. 4. Enterovesical fistula. 5. New abdominal wounds in the left lower quadrant of the abdomen near the groin. 6. Severe protein-calorie malnutrition. 7. Anemia of chronic disease. 8. Enterovesical fistula. 9. Chronic abdominal pain secondary to adhesions. previous history of C . diff\ hypomagnesemia resolved possible abdominal wall abscess on abdominal ultrasound Plan Plan of Care continue iv zosyn and oral vancomycin continue TPN defer to IR to evaluate abdominal ultrasound and possible percutanous drainage labs tomorrow PT and OT Comment Review of Relevant I have reviewed the following items lucila (where applicable) has been applied. Labs Laboratory Tests Test 12/19/19 06:00 12/20/19 04:30 White Blood Count 4.9 x10^3/uL (4.0-11.0) Red Blood Count 3.05 x10^6/uL (3.50-5.40) Hemoglobin 8.8 g/dL (12.0-15.5) Hematocrit 26.7 % (36.0-47.0) Mean Corpuscular Volume 87 fL (79-100) Mean Corpuscular Hemoglobin 29 pg (25-35) Mean Corpuscular Hemoglobin Concent 33 g/dL (31-37) Red Cell Distribution Width 18.0 % (11.5-14.5) Platelet Count 620 x10^3/uL (140-400) Neutrophils (%) (Auto) 71 % (31-73) Lymphocytes (%) (Auto) 15 % (24-48) Monocytes (%) (Auto) 9 % (0-9) Eosinophils (%) (Auto) 4 % (0-3) Basophils (%) (Auto) 1 % (0-3) Neutrophils # (Auto) 3.4 x10^3/uL (1.8-7.7) Lymphocytes # (Auto) 0.7 x10^3/uL (1.0-4.8) Monocytes # (Auto) 0.5 x10^3/uL (0.0-1.1) Eosinophils # (Auto) 0.2 x10^3/uL (0.0-0.7) Basophils # (Auto) 0.0 x10^3/uL (0.0-0.2) Sodium Level 137 mmol/L (136-145) 137 mmol/L (136-145) Potassium Level 4.1 mmol/L (3.5-5.1) 4.2 mmol/L (3.5-5.1) Chloride Level 103 mmol/L (98-107) 104 mmol/L (98-107) Carbon Dioxide Level 30 mmol/L (21-32) 33 mmol/L (21-32) Anion Gap 4 (6-14) 0 (6-14) Blood Urea Nitrogen 17 mg/dL (7-20) 17 mg/dL (7-20) Creatinine 0.6 mg/dL (0.6-1.0) 0.5 mg/dL (0.6-1.0) Estimated GFR (Cockcroft-Gault) 121.8 150.3 Glucose Level 109 mg/dL (70-99) 120 mg/dL (70-99) Calcium Level 8.0 mg/dL (8.5-10.1) 8.5 mg/dL (8.5-10.1) Phosphorus Level 3.2 mg/dL (2.6-4.7) 3.5 mg/dL (2.6-4.7) Magnesium Level 2.2 mg/dL (1.8-2.4) Laboratory Tests Test 12/20/19 04:30 Sodium Level 137 mmol/L (136-145) Potassium Level 4.2 mmol/L (3.5-5.1) Chloride Level 104 mmol/L (98-107) Carbon Dioxide Level 33 mmol/L (21-32) Anion Gap 0 (6-14) Blood Urea Nitrogen 17 mg/dL (7-20) Creatinine 0.5 mg/dL (0.6-1.0) Estimated GFR (Cockcroft-Gault) 150.3 Glucose Level 120 mg/dL (70-99) Calcium Level 8.5 mg/dL (8.5-10.1) Phosphorus Level 3.5 mg/dL (2.6-4.7) Microbiology 12/17/19 Gram Stain - Final, Resulted 12/17/19 Aerobic and Anaerobic Culture - Preliminary, Resulted 12/16/19 Blood Culture - Preliminary, Resulted NO GROWTH AFTER 3 DAYS Medications Current Medications Hydromorphone HCl (Dilaudid) 1 mg 1X ONCE IV Last administered on 12/16/19at 18:56; Start 12/16/19 at 18:45; Stop 12/16/19 at 18:46; Status DC Ondansetron HCl (Zofran) 4 mg 1X ONCE IVP Last administered on 12/16/19at 18:56; Start 12/16/19 at 18:45; Stop 12/16/19 at 18:46; Status DC Sodium Chloride 1,000 ml @ 1,000 mls/hr 1X ONCE IV Last administered on 12/16/19at 19:47; Start 12/16/19 at 18:45; Stop 12/16/19 at 19:44; Status DC Ondansetron HCl (Zofran) 4 mg PRN Q8HRS PRN IV NAUSEA/VOMITING; Start 12/16/19 at 20:15; Stop 12/17/19 at 20:14; Status DC Dextrose/Sodium Chloride 1,000 ml @ 75 mls/hr 1X ONCE IV Last administered on 12/16/19at 21:41; Start 12/16/19 at 20:15; Stop 12/17/19 at 09:34; Status DC Hydromorphone HCl (Dilaudid) 2 mg PRN Q4HRS PRN IV PAIN Last administered on 12/17/19at 08:06; Start 12/16/19 at 20:15; Stop 12/17/19 at 10:25; Status DC Zolpidem Tartrate (Ambien) 5 mg QHS PO Last administered on 12/19/19at 21:26; Start 12/16/19 at 21:00 Linezolid/Dextrose 300 ml @ 300 mls/hr Q12HR IV Last administered on 12/19/19at 09:11; Start 12/17/19 at 09:00; Stop 12/19/19 at 10:08; Status DC Piperacillin Sod/ Tazobactam Sod 3.375 gm/Sodium Chloride 50 ml @ 100 mls/hr Q6HRS IV Last administered on 12/20/19at 05:27; Start 12/17/19 at 01:00 Linezolid/Dextrose 300 ml @ 300 mls/hr ONCE ONCE IV Last administered on 12/16/19at 22:43; Start 12/16/19 at 21:00; Stop 12/16/19 at 21:59; Status DC Piperacillin Sod/ Tazobactam Sod 3.375 gm/Sodium Chloride 50 ml @ 100 mls/hr ONCE ONCE IV Last administered on 12/16/19at 20:46; Start 12/16/19 at 20:30; Stop 12/16/19 at 20:59; Status DC Neomycin/ Polymyxin/ Bacitracin (Triple Antibiotic Ointment) 1 pkt STK-MED ONCE TP ; Start 12/16/19 at 20:36; Stop 12/16/19 at 20:37; Status DC Mupirocin (Bactroban) 1 sang BID TP Last administered on 12/20/19 08:43; Start 12/17/19 at 09:00 Hydromorphone HCl (Dilaudid) 1 mg PRN Q4HRS PRN IV PAIN Last administered on 12/18/19at 14:34; Start 12/17/19 at 10:15; Stop 12/18/19 at 14:40; Status DC Acetaminophen (Tylenol) 650 mg PRN Q6HRS PRN PO MILD PAIN / TEMP > 100.3'F Last administered on 12/18/19at 13:32; Start 12/17/19 at 10:15 Zinc Oxide (Zinc Oxide 20% Topical) 1 sang BID TP Last administered on 12/20/19at 08:43; Start 12/17/19 at 11:00 Lidocaine HCl (Xylocaine 2% Topical 30gm Tube) 1 sang BID TP Last administered on 12/20/19at 08:44; Start 12/17/19 at 11:00 Lorazepam (Ativan) 0.5 mg PRN Q6HRS PRN PO ANXIETY / AGITATION; Start 12/17/19 at 10:15 Ondansetron HCl (Zofran Odt) 4 mg PRN Q6HRS PRN PO NAUSEA/VOMITING; Start 12/17/19 at 10:15 Pantoprazole Sodium (Protonix) 40 mg DAILYAC PO Last administered on 12/20/19 08:43; Start 12/17/19 at 11:00 Dextrose/Sodium Chloride 1,000 ml @ 75 mls/hr [id number] IV Last administered on 12/17/19at 10:45; Start 12/17/19 at 10:15; Stop 12/17/19 at 21:59; Status DC Sertraline HCl (Zoloft) 50 mg DAILY PO Last administered on 12/20/19 08:43; Start 12/17/19 at 11:00 Info (Tpn Per Pharmacy) 1 each PRN DAILY PRN MC SEE COMMENTS Last administered on 12/19/19 12:44; Start 12/17/19 at 11:00 Sodium Chloride 120 meq/Sodium Acetate 120 meq/ Potassium Acetate 30 meq/Potassium Phosphate 22 mmol/ Magnesium Sulfate 24 meq/Calcium Gluconate 10 meq/ Multivitamins 10 ml/Chromium/ Copper/Manganese/ Seleni/Zn 1 ml/ Total Parenteral Nutrition/Amino Acids/Dextrose/ Fat Emulsion Intravenous 1,920 ml @ 80 mls/hr TPN CONT IV Last administered on 12/17/19 22:49; Start 12/17/19 at 22:00; Stop 12/18/19 at 21:59; Status DC Lactobacillus Rhamnosus (Culturelle) 1 cap BID PO Last administered on 12/20/19 08:43; Start 12/17/19 at 21:00 Vancomycin HCl (Vancomycin Oral Solution) 125 mg BID PO Last administered on 12/20/19 08:43; Start 12/17/19 at 21:00 Magnesium Sulfate 100 ml @ 25 mls/hr 1X ONCE IV Last administered on 12/18/19at 11:00; Start 12/18/19 at 11:00; Stop 12/18/19 at 14:59; Status DC Sodium Chloride 120 meq/Sodium Acetate 120 meq/ Potassium Acetate 30 meq/Potassium Phosphate 22 mmol/ Magnesium Sulfate 24 meq/Calcium Gluconate 10 meq/ Multivitamins 10 ml/Chromium/ Copper/Manganese/ Seleni/Zn 1 ml/ Total Parenteral Nutrition/Amino Acids/Dextrose/ Fat Emulsion Intravenous 1,885 ml @ 78.542 mls/ hr TPN CONT IV Last administered on 12/18/19at 22:10; Start 12/18/19 at 22:00; Stop 12/19/19 at 21:59; Status DC Hydromorphone HCl (Dilaudid) 2 mg PRN Q6HRS PRN IV SEVERE PAIN Last administered on 12/20/19at 08:43; Start 12/18/19 at 14:45 Sodium Chloride 120 meq/Sodium Acetate 120 meq/ Potassium Acetate 30 meq/Potassium Phosphate 22 mmol/ Magnesium Sulfate 24 meq/Calcium Gluconate 10 meq/ Multivitamins 10 ml/Chromium/ Copper/Manganese/ Seleni/Zn 1 ml/ Total Parenteral Nutrition/Amino Acids/Dextrose/ Fat Emulsion Intravenous 1,885 ml @ 78.542 mls/ hr TPN CONT IV Last administered on 12/19/19at 21:26; Start 12/19/19 at 22:00; Stop 12/20/19 at 21:59 Sodium Chloride 120 meq/Sodium Acetate 120 meq/ Potassium Acetate 30 meq/Potassium Phosphate 22 mmol/ Magnesium Sulfate 24 meq/Calcium Gluconate 10 meq/ Multivitamins 10 ml/Chromium/ Copper/Manganese/ Seleni/Zn 1 ml/ Total Parenteral Nutrition/Amino Acids/Dextrose/ Fat Emulsion Intravenous 1,885 ml @ 78.542 mls/ hr TPN CONT IV ; Start 12/20/19 at 22:00; Stop 12/21/19 at 21:59 Active Scripts Active Dilaudid (Hydromorphone Hcl) 2 Mg Tablet 1 Tab PO Q6HRS PRN MDD 4 Tablet(s) Pantoprazole Sodium (Pantoprazole Sodium) 40 Mg Tablet. 40 Mg PO DAILYAC Tylenol (Acetaminophen) 325 Mg Tablet 650 Mg PO PRN Q6HRS PRN [Pantoprazole] 40 MG Tablet.dr 40 Mg PO DAILYAC 30 Days Zinc Oxide 56.7 Gm Oint...g. 1 Sang TP BID Ambien (Zolpidem Tartrate) 5 Mg Tablet 5 Mg PO PRN QHS PRN 30 Days [Tpn Per Pharmacy] 1 EACH Each 1 Each MC PRN DAILY PRN TPN at 85cc/hour Sertraline Hcl 50 Mg Tablet 50 Mg PO DAILY 30 Days Lidocaine 35.44 Gm Oint...g. 1 Sang TP BID Reported Ondansetron Hcl 4 Mg Tablet 4 Mg PO PRN Q6HRS PRN Lorazepam 0.5 Mg Tablet 0.5 Mg PO Q6HRS PRN Vitals/I & O Vital Sign - Last 24 Hours 12/19/19 12/19/19 12/19/19 12/19/19 11:00 12:42 13:15 15:05 Temp 98.2 98.2 98.2 98.2 Pulse 87 76 Resp 18 19 19 16 B/P (MAP) 128/71 (90) 114/70 (85) Pulse Ox 100 100 100 100 O2 Delivery Room Air Room Air Room Air Room Air 12/19/19 12/19/19 12/19/19 12/19/19 19:11 19:37 19:58 20:05 Temp 98.7 98.7 Pulse 79 Resp 19 16 B/P (MAP) 117/66 (83) Pulse Ox 100 98 O2 Delivery Room Air Room Air Room Air Room Air 12/19/19 12/20/19 12/20/19 12/20/19 23:55 02:09 02:55 03:41 Temp 98.3 98.3 Pulse 86 Resp 16 16 B/P (MAP) 137/66 (89) Pulse Ox 100 O2 Delivery Room Air Room Air Room Air Room Air 12/20/19 12/20/19 12/20/19 07:00 08:00 10:49 Temp 98.5 98.2 98.5 98.2 Pulse 85 90 Resp 17 17 B/P (MAP) 99/52 (68) 111/48 (69) Pulse Ox 99 98 O2 Delivery Room Air Room Air Room Air Intake and Output 12/19/19 12/19/19 12/20/19 15:00 23:00 07:00 Intake Total 400 ml 270 ml 300 ml Balance 400 ml 270 ml 300 ml Justicifation of Admission Dx: Justifications for Admission: Justification of Admission Dx: Yes Nutrition Consultation Dietary Evaluation: Recommendations by RD: Dietary education by RD, PPN/TPN Comments: REC continue home TPN and diet as tolerated Expected Outcomes/Goals: to meet >75% est nutr needs Malnutrition Findings: Muscle Mass (Severe): Severe Depletion Body Fat Depletion (Non Severe: Mod to Severe Weight Status: Underweight BENITA LUTZ MD Dec 20, 2019 10:57
--- NOTE | 2019-12-20 14:04 | PDOC ---
Provider Note Provider Note IR NOTE Imaging reviewed. There is a persistent intraperitoneal gas and fluid collection, though much small than on recent comparison exams. No significant abdominal wall abscess was identified. The patient has a long standing history of enterocutaneous fistulae in which the intra-abdominal fluid collections periodically decompress via the anterior abdominal wall, sometimes resulting in associated walled off abscesses. I spoke with Dr Tomlinson about findings. This is a very difficult situation with limited options. Given her clinical improvement, the plan at current is to avoid any new wounds/drains. Justicifation of Admission Dx: Justifications for Admission: Justification of Admission Dx: Yes CARRINGTON BURKETT MD Dec 20, 2019 14:04
[2019-12-20 14:51] VITALS: BP 109/61
--- NOTE | 2019-12-20 15:26 | NUR ---
SW following. Reviewed chart and spoke with RN. Pt is being evaluated for possible percutaneous drainage. Pt remains on IV Zosyn and oral Vancomycin. Pt remains on TPN. Discharge plan remains home with Ramiro VELAZQUEZ and TPN with [facility]. SW to continue following.
[2019-12-20 20:00] VITALS: BP 106/56
[2019-12-20] MEDS: ZOLPIDEM 5 MG TABLET. PO SCH (20:50)
[2019-12-20] MEDS ORDERED: [UNRECOGNIZED DRUG - OTHER] IV SCH (22:00)
[2019-12-20] MEDS ORDERED: DEXTROSE 70% IV SCH (22:00)
[2019-12-20] MEDS ORDERED: TOTAL PARENTERAL NUTRITION IV SCH (22:00)
[2019-12-20] MEDS ORDERED: AMINO ACID IV SCH (22:00)
[2019-12-20 23:11] VITALS: BP 125/71
[2019-12-21] MEDS: HYDROmorphone 2 MG/ML VIAL IV PRN ×5 (03:31→23:40)
[2019-12-21 04:25] VITALS: BP 120/61
[2019-12-21 04:33] LABS: BASO # 0.1 x10^3/uL (0.0-0.2); BASO % 2 % (0-3); EOS # 0.3 x10^3/uL (0.0-0.7); EOS % 7 % (0-3); HEMATOCRIT 23.2 % (36.0-47.0); HEMOGLOBIN 7.9 g/dL (12.0-15.5); LYMPH # 1.3 x10^3/uL (1.0-4.8); LYMPH % 29 % (24-48); MEAN CORPUSCULAR HEMOGLOBIN 30 pg (25-35); MEAN CORPUSCULAR HGB CONC 34 g/dL (31-37); MEAN CORPUSCULAR VOLUME 87 fL (79-100); MONO # 0.4 x10^3/uL (0.0-1.1); MONO % 9 % (0-9); NEUT # 2.3 x10^3/uL (1.8-7.7); NEUT % 53 % (31-73); PLATELET COUNT 588 x10^3/uL (140-400); RED BLOOD COUNT 2.65 x10^6/uL (3.50-5.40); RED CELL DISTRIBUTION WIDTH 17.7 % (11.5-14.5); WHITE BLOOD COUNT 4.4 x10^3/uL (4.0-11.0)
[2019-12-21 05:06] LABS: ALBUMIN 1.5 g/dL (3.4-5.0); ALBUMIN/GLOBULIN RATIO 0.3 (1.0-1.7); CALCIUM 8.4 mg/dL (8.5-10.1); CREATININE 0.6 mg/dL (0.6-1.0); GFR 121.8; PHOSPHORUS 3.5 mg/dL (2.6-4.7); POTASSIUM 4.6 mmol/L (3.5-5.1); TOTAL BILIRUBIN 0.1 mg/dL (0.2-1.0); TOTAL PROTEIN 6.9 g/dL (6.4-8.2)
[2019-12-21] MEDS: PIPERACILLIN/TAZOBACTAM 3.375 GM in IV NORMAL SALINE 50ML 50 ML IV SCH (05:24)
[2019-12-21 07:20] VITALS: BP 115/66
[2019-12-21] MEDS: SERTRALINE 50 MG TABLET. PO SCH (08:59)
[2019-12-21] MEDS: LACTOBACILLUS RHAMNOSUS GG 1 CAPSULE. PO SCH ×2 (08:59→23:15)
[2019-12-21] MEDS: VANCOMYCIN 125 MG/2.5 ML ORAL SOLUTION. PO SCH ×2 (08:59→23:15)
[2019-12-21] MEDS: PANTOPRAZOLE 40 MG TABLET.DR. PO SCH (08:59)
[2019-12-21] MEDS: LIDOCAINE 2% TOPICAL JELLY 30GM TUBE. TP SCH ×2 (09:02→21:00)
[2019-12-21] MEDS: MUPIROCIN 2 % NASAL OINTMENT 22GM TUBE. TP SCH ×2 (09:02→21:00)
[2019-12-21] MEDS: ZINC OXIDE 20% TOPICAL OINTMENT 28GM TUBE. TP SCH ×2 (09:02→21:00)
--- NOTE | 2019-12-21 10:02 | PDOC ---
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1) Chloride Level 104 mmol/L (98-107) 104 mmol/L (98-107) Carbon Dioxide Level 33 mmol/L (21-32) 30 mmol/L (21-32) Anion Gap 0 (6-14) 5 (6-14) Blood Urea Nitrogen 17 mg/dL (7-20) 17 mg/dL (7-20) Creatinine 0.5 mg/dL (0.6-1.0) 0.6 mg/dL (0.6-1.0) Estimated GFR (Cockcroft-Gault) 150.3 121.8 Glucose Level 120 mg/dL (70-99) 111 mg/dL (70-99) Calcium Level 8.5 mg/dL (8.5-10.1) 8.4 mg/dL (8.5-10.1) Phosphorus Level 3.5 mg/dL (2.6-4.7) 3.5 mg/dL (2.6-4.7) White Blood Count 4.4 x10^3/uL (4.0-11.0) Red Blood Count 2.65 x10^6/uL (3.50-5.40) Hemoglobin 7.9 g/dL (12.0-15.5) Hematocrit 23.2 % (36.0-47.0) Mean Corpuscular Volume 87 fL (79-100) Mean Corpuscular Hemoglobin 30 pg (25-35) Mean Corpuscular Hemoglobin Concent 34 g/dL (31-37) Red Cell Distribution Width 17.7 % (11.5-14.5) Platelet Count 588 x10^3/uL (140-400) Neutrophils (%) (Auto) 53 % (31-73) Lymphocytes (%) (Auto) 29 % (24-48) Monocytes (%) (Auto) 9 % (0-9) Eosinophils (%) (Auto) 7 % (0-3) Basophils (%) (Auto) 2 % (0-3) Neutrophils # (Auto) 2.3 x10^3/uL (1.8-7.7) Lymphocytes # (Auto) 1.3 x10^3/uL (1.0-4.8) Monocytes # (Auto) 0.4 x10^3/uL (0.0-1.1) Eosinophils # (Auto) 0.3 x10^3/uL (0.0-0.7) Basophils # (Auto) 0.1 x10^3/uL (0.0-0.2) BUN/Creatinine Ratio 28 (6-20) Magnesium Level 2.0 mg/dL (1.8-2.4) Total Bilirubin 0.1 mg/dL (0.2-1.0) Aspartate Amino Transf (AST/SGOT) 11 U/L (15-37) Alanine Aminotransferase (ALT/SGPT) 6 U/L (14-59) Alkaline Phosphatase 99 U/L (46-116) Total Protein 6.9 g/dL (6.4-8.2) Albumin 1.5 g/dL (3.4-5.0) Albumin/Globulin Ratio 0.3 (1.0-1.7) Laboratory Tests Test 12/21/19 03:53 White Blood Count 4.4 x10^3/uL (4.0-11.0) Red Blood Count 2.65 x10^6/uL (3.50-5.40) Hemoglobin 7.9 g/dL (12.0-15.5) Hematocrit 23.2 % (36.0-47.0) Mean Corpuscular Volume 87 fL (79-100) Mean Corpuscular Hemoglobin 30 pg (25-35) Mean Corpuscular Hemoglobin Concent 34 g/dL (31-37) Red Cell Distribution Width 17.7 % (11.5-14.5) Platelet Count 588 x10^3/uL (140-400) Neutrophils (%) (Auto) 53 % (31-73) Lymphocytes (%) (Auto) 29 % (24-48) Monocytes (%) (Auto) 9 % (0-9) Eosinophils (%) (Auto) 7 % (0-3) Basophils (%) (Auto) 2 % (0-3) Neutrophils # (Auto) 2.3 x10^3/uL (1.8-7.7) Lymphocytes # (Auto) 1.3 x10^3/uL (1.0-4.8) Monocytes # (Auto) 0.4 x10^3/uL (0.0-1.1) Eosinophils # (Auto) 0.3 x10^3/uL (0.0-0.7) Basophils # (Auto) 0.1 x10^3/uL (0.0-0.2) Sodium Level 139 mmol/L (136-145) Potassium Level 4.6 mmol/L (3.5-5.1) Chloride Level 104 mmol/L (98-107) Carbon Dioxide Level 30 mmol/L (21-32) Anion Gap 5 (6-14) Blood Urea Nitrogen 17 mg/dL (7-20) Creatinine 0.6 mg/dL (0.6-1.0) Estimated GFR (Cockcroft-Gault) 121.8 BUN/Creatinine Ratio 28 (6-20) Glucose Level 111 mg/dL (70-99) Calcium Level 8.4 mg/dL (8.5-10.1) Phosphorus Level 3.5 mg/dL (2.6-4.7) Magnesium Level 2.0 mg/dL (1.8-2.4) Total Bilirubin 0.1 mg/dL (0.2-1.0) Aspartate Amino Transf (AST/SGOT) 11 U/L (15-37) Alanine Aminotransferase (ALT/SGPT) 6 U/L (14-59) Alkaline Phosphatase 99 U/L (46-116) Total Protein 6.9 g/dL (6.4-8.2) Albumin 1.5 g/dL (3.4-5.0) Albumin/Globulin Ratio 0.3 (1.0-1.7) Assessment/Plan wound care, TPN, abx no surgical plans Justicifation of Admission Dx: Justifications for Admission: Justification of Admission Dx: Yes ANDERSON LOPEZ MD 12/21/19 1052: SURGICAL PROGRESS NOTE Assessment/Plan Patient seen and examined by me. She is having worsening excoriation of the skin secondary to fistula output. This is causing her significantly more pain. Spoke with wound care about trying a wound VAC over the fistula to control the drainage. Agree with Riley assessment and plan. JULY SUGGS APRN Dec 21, 2019 10:02 ANDERSON LOPEZ MD Dec 21, 2019 10:52
--- NOTE | 2019-12-21 10:19 | PDOC ---
Infectious Disease Note Subjective Subjective Feeling ok but has some ongoing swelling then draining in abd. No pain currently. has been more active Feeling a little depressed. No F/c/S//N/V/D/SOA/rash Vital Sign Vital Signs Vital Signs Date Time Temp Pulse Resp B/P (MAP) Pulse Ox O2 Delivery O2 Flow Rate FiO2 12/21/19 08:30 Room Air 12/21/19 07:20 98.2 83 16 115/66 (82) 99 98.2 Physical Exam PHYSICAL EXAM GENERAL: She is sitting upright in bed. She looks comfortable. She is in no acute distress. HEENT: Oral cavity, pharynx is clear. She is a little cachectic. NECK: Supple, no JVD. LUNGS: Clear. HEART: S1, S2. Right-sided catheter without signs of complications. ABDOMEN: Nondistended, mild excoriations. There is some clear drainage. She has two wounds in her left lower quadrant. There appeared to be clean the midline wound without gross contamination. Left abd side with some increased fluctuation. No tenderness/warmth/erythema EXTREMITIES: No clubbing, cyanosis or gross edema. SKIN: Warm to touch without signs of rash. NEUROLOGIC: She is alert and appropriate Labs Lab Laboratory Tests Test 12/21/19 03:53 White Blood Count 4.4 x10^3/uL (4.0-11.0) Red Blood Count 2.65 x10^6/uL (3.50-5.40) Hemoglobin 7.9 g/dL (12.0-15.5) Hematocrit 23.2 % (36.0-47.0) Mean Corpuscular Volume 87 fL (79-100) Mean Corpuscular Hemoglobin 30 pg (25-35) Mean Corpuscular Hemoglobin Concent 34 g/dL (31-37) Red Cell Distribution Width 17.7 % (11.5-14.5) Platelet Count 588 x10^3/uL (140-400) Neutrophils (%) (Auto) 53 % (31-73) Lymphocytes (%) (Auto) 29 % (24-48) Monocytes (%) (Auto) 9 % (0-9) Eosinophils (%) (Auto) 7 % (0-3) Basophils (%) (Auto) 2 % (0-3) Neutrophils # (Auto) 2.3 x10^3/uL (1.8-7.7) Lymphocytes # (Auto) 1.3 x10^3/uL (1.0-4.8) Monocytes # (Auto) 0.4 x10^3/uL (0.0-1.1) Eosinophils # (Auto) 0.3 x10^3/uL (0.0-0.7) Basophils # (Auto) 0.1 x10^3/uL (0.0-0.2) Sodium Level 139 mmol/L (136-145) Potassium Level 4.6 mmol/L (3.5-5.1) Chloride Level 104 mmol/L (98-107) Carbon Dioxide Level 30 mmol/L (21-32) Anion Gap 5 (6-14) Blood Urea Nitrogen 17 mg/dL (7-20) Creatinine 0.6 mg/dL (0.6-1.0) Estimated GFR (Cockcroft-Gault) 121.8 BUN/Creatinine Ratio 28 (6-20) Glucose Level 111 mg/dL (70-99) Calcium Level 8.4 mg/dL (8.5-10.1) Phosphorus Level 3.5 mg/dL (2.6-4.7) Magnesium Level 2.0 mg/dL (1.8-2.4) Total Bilirubin 0.1 mg/dL (0.2-1.0) Aspartate Amino Transf (AST/SGOT) 11 U/L (15-37) Alanine Aminotransferase (ALT/SGPT) 6 U/L (14-59) Alkaline Phosphatase 99 U/L (46-116) Total Protein 6.9 g/dL (6.4-8.2) Albumin 1.5 g/dL (3.4-5.0) Albumin/Globulin Ratio 0.3 (1.0-1.7) Micro Abd U/S /7Impression: 1. Anterior abdominal wall abscess extending to the cutaneous surface. ANAEROBIC-AEROBIC CULTURE Preliminary Preliminary MIXED AEROBIC ENE on 12/19/19 at 1014 INCLUDING: MODERATE [ESCHERICHIA COLI] MODERATE [PROTEUS MIRABILIS] MODERATE [KLEBSIELLA PNEUMONIAE] ESCHERICHIA COLI PROTEUS MIRABILIS KLEBSIELLA PNEUMONIAE Microbiology 12/17/19 Gram Stain - Final, Resulted 12/17/19 Aerobic and Anaerobic Culture, Resulted Pending 12/16/19 Blood Culture - Preliminary, Resulted NO GROWTH AFTER 2 DAYS Objective Assessment ASSESSMENT: 1. Left lower quadrant wounds had some purulent drainage but they appear to have opened up and drained some fluid. She is feeling better. cultures could represent - ? colonization collected from drainage on abd and with fistula 2. VANCOMYCIN allergy. 3. Enterocutaneous fistula. 4. Enterovesicular fistula. 5. Malnutrition. 6. History of Clostridium difficile. Plan Plan of Care Reviewed Surg and IR note - D/w Dr. Tomlinson today he plans to d/w wound care some options for wound care Will d/c Zosyn and monitor - given h/o C-diff and recurrent abx exposure liliana po vancomycin BID f/u cultures Monitor labs/temp Local wound care ABBY MOTT MD Dec 21, 2019 10:19
[2019-12-21 11:08] VITALS: BP 111/65
--- NOTE | 2019-12-21 11:36 | PDOC ---
PROGRESS NOTES Subjective Subjective feels okay. IR did not appreciate abdominal wall abscess. afebrile. lab reviewed. complains of abdominal pain and wants dilaudid iv every 4 hours prn instead of every 6 hours prn. wants labs drawn from [facility]. Objective Objective Vital Signs Date Time Temp Pulse Resp B/P (MAP) Pulse Ox O2 Delivery O2 Flow Rate FiO2 12/21/19 11:08 98.6 87 18 111/65 (80) 97 Room Air 98.6 Intake and Output 12/21/19 07:00 Intake Total 1300 ml Balance 1300 ml Intake Oral 1300 ml # Voids 1 Physical Exam Abdomen: Soft, Other (EC fistula. no induraration) Heart: Regular rate, Normal S1, Normal S2 Extremities: No edema General: Alert HEENT: Atraumatic Lungs: Clear to auscultation Neuro: Strength at 5/5 X4 ext Psych/Mental Status: Mental status NL Skin: No rashes Assessment Assessment 1. Fever. resolved 2. 3. Enterocutaneous fistula. 4. Enterovesical fistula. 5. New abdominal wounds in the left lower quadrant of the abdomen near the groin. 6. Severe protein-calorie malnutrition. 7. Anemia of chronic disease. 8. Enterovesical fistula. 9. Chronic abdominal pain secondary to adhesions. previous history of C . diff\ hypomagnesemia resolved Plan Plan of Care d/c zosyn per ID continue oral vancomycin dr. Tomlinson to discuss case with wound care watch off of antibiotics increase dilaudid to every 4 hours prn. hold if drowsy or confused discussed with dr. Almanza who will watch her off of antibiotics for 48 hours anticipate dismissal wednesday with home health Comment Review of Relevant I have reviewed the following items lucila (where applicable) has been applied. Labs Laboratory Tests Test 12/20/19 04:30 12/21/19 03:53 Sodium Level 137 mmol/L (136-145) 139 mmol/L (136-145) Potassium Level 4.2 mmol/L (3.5-5.1) 4.6 mmol/L (3.5-5.1) Chloride Level 104 mmol/L (98-107) 104 mmol/L (98-107) Carbon Dioxide Level 33 mmol/L (21-32) 30 mmol/L (21-32) Anion Gap 0 (6-14) 5 (6-14) Blood Urea Nitrogen 17 mg/dL (7-20) 17 mg/dL (7-20) Creatinine 0.5 mg/dL (0.6-1.0) 0.6 mg/dL (0.6-1.0) Estimated GFR (Cockcroft-Gault) 150.3 121.8 Glucose Level 120 mg/dL (70-99) 111 mg/dL (70-99) Calcium Level 8.5 mg/dL (8.5-10.1) 8.4 mg/dL (8.5-10.1) Phosphorus Level 3.5 mg/dL (2.6-4.7) 3.5 mg/dL (2.6-4.7) White Blood Count 4.4 x10^3/uL (4.0-11.0) Red Blood Count 2.65 x10^6/uL (3.50-5.40) Hemoglobin 7.9 g/dL (12.0-15.5) Hematocrit 23.2 % (36.0-47.0) Mean Corpuscular Volume 87 fL (79-100) Mean Corpuscular Hemoglobin 30 pg (25-35) Mean Corpuscular Hemoglobin Concent 34 g/dL (31-37) Red Cell Distribution Width 17.7 % (11.5-14.5) Platelet Count 588 x10^3/uL (140-400) Neutrophils (%) (Auto) 53 % (31-73) Lymphocytes (%) (Auto) 29 % (24-48) Monocytes (%) (Auto) 9 % (0-9) Eosinophils (%) (Auto) 7 % (0-3) Basophils (%) (Auto) 2 % (0-3) Neutrophils # (Auto) 2.3 x10^3/uL (1.8-7.7) Lymphocytes # (Auto) 1.3 x10^3/uL (1.0-4.8) Monocytes # (Auto) 0.4 x10^3/uL (0.0-1.1) Eosinophils # (Auto) 0.3 x10^3/uL (0.0-0.7) Basophils # (Auto) 0.1 x10^3/uL (0.0-0.2) BUN/Creatinine Ratio 28 (6-20) Magnesium Level 2.0 mg/dL (1.8-2.4) Total Bilirubin 0.1 mg/dL (0.2-1.0) Aspartate Amino Transf (AST/SGOT) 11 U/L (15-37) Alanine Aminotransferase (ALT/SGPT) 6 U/L (14-59) Alkaline Phosphatase 99 U/L (46-116) Total Protein 6.9 g/dL (6.4-8.2) Albumin 1.5 g/dL (3.4-5.0) Albumin/Globulin Ratio 0.3 (1.0-1.7) Laboratory Tests Test 12/21/19 03:53 White Blood Count 4.4 x10^3/uL (4.0-11.0) Red Blood Count 2.65 x10^6/uL (3.50-5.40) Hemoglobin 7.9 g/dL (12.0-15.5) Hematocrit 23.2 % (36.0-47.0) Mean Corpuscular Volume 87 fL (79-100) Mean Corpuscular Hemoglobin 30 pg (25-35) Mean Corpuscular Hemoglobin Concent 34 g/dL (31-37) Red Cell Distribution Width 17.7 % (11.5-14.5) Platelet Count 588 x10^3/uL (140-400) Neutrophils (%) (Auto) 53 % (31-73) Lymphocytes (%) (Auto) 29 % (24-48) Monocytes (%) (Auto) 9 % (0-9) Eosinophils (%) (Auto) 7 % (0-3) Basophils (%) (Auto) 2 % (0-3) Neutrophils # (Auto) 2.3 x10^3/uL (1.8-7.7) Lymphocytes # (Auto) 1.3 x10^3/uL (1.0-4.8) Monocytes # (Auto) 0.4 x10^3/uL (0.0-1.1) Eosinophils # (Auto) 0.3 x10^3/uL (0.0-0.7) Basophils # (Auto) 0.1 x10^3/uL (0.0-0.2) Sodium Level 139 mmol/L (136-145) Potassium Level 4.6 mmol/L (3.5-5.1) Chloride Level 104 mmol/L (98-107) Carbon Dioxide Level 30 mmol/L (21-32) Anion Gap 5 (6-14) Blood Urea Nitrogen 17 mg/dL (7-20) Creatinine 0.6 mg/dL (0.6-1.0) Estimated GFR (Cockcroft-Gault) 121.8 BUN/Creatinine Ratio 28 (6-20) Glucose Level 111 mg/dL (70-99) Calcium Level 8.4 mg/dL (8.5-10.1) Phosphorus Level 3.5 mg/dL (2.6-4.7) Magnesium Level 2.0 mg/dL (1.8-2.4) Total Bilirubin 0.1 mg/dL (0.2-1.0) Aspartate Amino Transf (AST/SGOT) 11 U/L (15-37) Alanine Aminotransferase (ALT/SGPT) 6 U/L (14-59) Alkaline Phosphatase 99 U/L (46-116) Total Protein 6.9 g/dL (6.4-8.2) Albumin 1.5 g/dL (3.4-5.0) Albumin/Globulin Ratio 0.3 (1.0-1.7) Microbiology 12/17/19 Gram Stain - Final, Resulted 12/17/19 Aerobic and Anaerobic Culture - Preliminary, Resulted 12/16/19 Blood Culture - Preliminary, Resulted NO GROWTH AFTER 4 DAYS Medications Current Medications Hydromorphone HCl (Dilaudid) 1 mg 1X ONCE IV Last administered on 12/16/19at 18:56; Start 12/16/19 at 18:45; Stop 12/16/19 at 18:46; Status DC Ondansetron HCl (Zofran) 4 mg 1X ONCE IVP Last administered on 12/16/19at 18:56; Start 12/16/19 at 18:45; Stop 12/16/19 at 18:46; Status DC Sodium Chloride 1,000 ml @ 1,000 mls/hr 1X ONCE IV Last administered on 12/16/19at 19:47; Start 12/16/19 at 18:45; Stop 12/16/19 at 19:44; Status DC Ondansetron HCl (Zofran) 4 mg PRN Q8HRS PRN IV NAUSEA/VOMITING; Start 12/16/19 at 20:15; Stop 12/17/19 at 20:14; Status DC Dextrose/Sodium Chloride 1,000 ml @ 75 mls/hr 1X ONCE IV Last administered on 12/16/19at 21:41; Start 12/16/19 at 20:15; Stop 12/17/19 at 09:34; Status DC Hydromorphone HCl (Dilaudid) 2 mg PRN Q4HRS PRN IV PAIN Last administered on 12/17/19at 08:06; Start 12/16/19 at 20:15; Stop 12/17/19 at 10:25; Status DC Zolpidem Tartrate (Ambien) 5 mg QHS PO Last administered on 12/20/19at 20:50; Start 12/16/19 at 21:00 Linezolid/Dextrose 300 ml @ 300 mls/hr Q12HR IV Last administered on 12/19/19at 09:11; Start 12/17/19 at 09:00; Stop 12/19/19 at 10:08; Status DC Piperacillin Sod/ Tazobactam Sod 3.375 gm/Sodium Chloride 50 ml @ 100 mls/hr Q6HRS IV Last administered on 12/21/19at 05:24; Start 12/17/19 at 01:00; Stop 12/21/19 at 10:50; Status DC Linezolid/Dextrose 300 ml @ 300 mls/hr ONCE ONCE IV Last administered on 12/16/19at 22:43; Start 12/16/19 at 21:00; Stop 12/16/19 at 21:59; Status DC Piperacillin Sod/ Tazobactam Sod 3.375 gm/Sodium Chloride 50 ml @ 100 mls/hr ONCE ONCE IV Last administered on 12/16/19at 20:46; Start 12/16/19 at 20:30; Stop 12/16/19 at 20:59; Status DC Neomycin/ Polymyxin/ Bacitracin (Triple Antibiotic Ointment) 1 pkt STK-MED ONCE TP ; Start 12/16/19 at 20:36; Stop 12/16/19 at 20:37; Status DC Mupirocin (Bactroban) 1 sang BID TP Last administered on 12/21/19at 09:02; Start 12/17/19 at 09:00 Hydromorphone HCl (Dilaudid) 1 mg PRN Q4HRS PRN IV PAIN Last administered on 12/18/19 14:34; Start 12/17/19 at 10:15; Stop 12/18/19 at 14:40; Status DC Acetaminophen (Tylenol) 650 mg PRN Q6HRS PRN PO MILD PAIN / TEMP > 100.3'F Last administered on 12/18/19 13:32; Start 12/17/19 at 10:15 Zinc Oxide (Zinc Oxide 20% Topical) 1 sang BID TP Last administered on 12/21/19 09:02; Start 12/17/19 at 11:00 Lidocaine HCl (Xylocaine 2% Topical 30gm Tube) 1 sang BID TP Last administered on 12/21/19 09:02; Start 12/17/19 at 11:00 Lorazepam (Ativan) 0.5 mg PRN Q6HRS PRN PO ANXIETY / AGITATION; Start 12/17/19 at 10:15 Ondansetron HCl (Zofran Odt) 4 mg PRN Q6HRS PRN PO NAUSEA/VOMITING; Start 12/17/19 at 10:15 Pantoprazole Sodium (Protonix) 40 mg DAILYAC PO Last administered on 12/21/19 08:59; Start 12/17/19 at 11:00 Dextrose/Sodium Chloride 1,000 ml @ 75 mls/hr [id number] IV Last administered on 12/17/19 10:45; Start 12/17/19 at 10:15; Stop 12/17/19 at 21:59; Status DC Sertraline HCl (Zoloft) 50 mg DAILY PO Last administered on 12/21/19at 08:59; Start 12/17/19 at 11:00 Info (Tpn Per Pharmacy) 1 each PRN DAILY PRN MC SEE COMMENTS Last administered on 12/19/19 12:44; Start 12/17/19 at 11:00 Sodium Chloride 120 meq/Sodium Acetate 120 meq/ Potassium Acetate 30 meq/Potassium Phosphate 22 mmol/ Magnesium Sulfate 24 meq/Calcium Gluconate 10 meq/ Multivitamins 10 ml/Chromium/ Copper/Manganese/ Seleni/Zn 1 ml/ Total Parenteral Nutrition/Amino Acids/Dextrose/ Fat Emulsion Intravenous 1,920 ml @ 80 mls/hr TPN CONT IV Last administered on 12/17/19at 22:49; Start 12/17/19 at 22:00; Stop 12/18/19 at 21:59; Status DC Lactobacillus Rhamnosus (Culturelle) 1 cap BID PO Last administered on 12/21/19at 08:59; Start 12/17/19 at 21:00 Vancomycin HCl (Vancomycin Oral Solution) 125 mg BID PO Last administered on 12/21/19at 08:59; Start 12/17/19 at 21:00 Magnesium Sulfate 100 ml @ 25 mls/hr 1X ONCE IV Last administered on 12/18/19at 11:00; Start 12/18/19 at 11:00; Stop 12/18/19 at 14:59; Status DC Sodium Chloride 120 meq/Sodium Acetate 120 meq/ Potassium Acetate 30 meq/Potassium Phosphate 22 mmol/ Magnesium Sulfate 24 meq/Calcium Gluconate 10 meq/ Multivitamins 10 ml/Chromium/ Copper/Manganese/ Seleni/Zn 1 ml/ Total Parenteral Nutrition/Amino Acids/Dextrose/ Fat Emulsion Intravenous 1,885 ml @ 78.542 mls/ hr TPN CONT IV Last administered on 12/18/19at 22:10; Start 12/18/19 at 22:00; Stop 12/19/19 at 21:59; Status DC Hydromorphone HCl (Dilaudid) 2 mg PRN Q6HRS PRN IV SEVERE PAIN Last administered on 12/21/19at 10:17; Start 12/18/19 at 14:45 Sodium Chloride 120 meq/Sodium Acetate 120 meq/ Potassium Acetate 30 meq/Potassium Phosphate 22 mmol/ Magnesium Sulfate 24 meq/Calcium Gluconate 10 meq/ Multivitamins 10 ml/Chromium/ Copper/Manganese/ Seleni/Zn 1 ml/ Total Parenteral Nutrition/Amino Acids/Dextrose/ Fat Emulsion Intravenous 1,885 ml @ 78.542 mls/ hr TPN CONT IV Last administered on 12/19/19at 21:26; Start 12/19/19 at 22:00; Stop 12/20/19 at 21:59; Status DC Sodium Chloride 120 meq/Sodium Acetate 120 meq/ Potassium Acetate 30 meq /Potassium Phosphate 22 mmol/ Magnesium Sulfate 24 meq/Calcium Gluconate 10 meq/ Multivitamins 10 ml/Chromium/ Copper/Manganese/ Seleni/Zn 1 ml/ Total Parenteral Nutrition/Amino Acids/Dextrose/ Fat Emulsion Intravenous 1,885 ml @ 78.542 mls/ hr TPN CONT IV Last administered on 12/20/19at 20:49; Start 12/20/19 at 22:00; Stop 12/21/19 at 21:59 Active Scripts Active Dilaudid (Hydromorphone Hcl) 2 Mg Tablet 1 Tab PO Q6HRS PRN MDD 4 Tablet(s) Pantoprazole Sodium (Pantoprazole Sodium) 40 Mg Tablet.dr 40 Mg PO DAILYAC Tylenol (Acetaminophen) 325 Mg Tablet 650 Mg PO PRN Q6HRS PRN [Pantoprazole] 40 MG Tablet.dr 40 Mg PO DAILYAC 30 Days Zinc Oxide 56.7 Gm Oint...g. 1 Sang TP BID Ambien (Zolpidem Tartrate) 5 Mg Tablet 5 Mg PO PRN QHS PRN 30 Days [Tpn Per Pharmacy] 1 EACH Each 1 Each MC PRN DAILY PRN TPN at 85cc/hour Sertraline Hcl 50 Mg Tablet 50 Mg PO DAILY 30 Days Lidocaine 35.44 Gm Oint...g. 1 Sang TP BID Reported Ondansetron Hcl 4 Mg Tablet 4 Mg PO PRN Q6HRS PRN Lorazepam 0.5 Mg Tablet 0.5 Mg PO Q6HRS PRN Vitals/I & O Vital Sign - Last 24 Hours 12/20/19 12/20/19 12/20/19 12/20/19 14:51 20:00 20:00 20:50 Temp 98.0 98.0 98.0 98.0 Pulse 81 88 Resp 17 16 B/P (MAP) 109/61 (77) 106/56 (73) Pulse Ox 99 100 O2 Delivery Room Air Room Air Room Air Room Air 12/20/19 12/20/19 12/21/19 12/21/19 21:28 23:11 03:00 03:31 Temp 97.8 97.8 Pulse 92 Resp 16 B/P (MAP) 125/71 (89) Pulse Ox 97 O2 Delivery Room Air Room Air Room Air Room Air 12/21/19 12/21/19 12/21/19 12/21/19 04:18 04:25 07:20 08:30 Temp 98.3 98.2 98.3 98.2 Pulse 90 83 Resp 16 16 B/P (MAP) 120/61 (80) 115/66 (82) Pulse Ox 97 99 O2 Delivery Room Air Room Air Room Air Room Air 12/21/19 11:08 Temp 98.6 98.6 Pulse 87 Resp 18 B/P (MAP) 111/65 (80) Pulse Ox 97 O2 Delivery Room Air Intake and Output 12/20/19 12/20/19 12/21/19 15:00 23:00 07:00 Intake Total 600 ml 500 ml 200 ml Balance 600 ml 500 ml 200 ml Justicifation of Admission Dx: Justifications for Admission: Justification of Admission Dx: Yes Nutrition Consultation Dietary Evaluation: Recommendations by RD: Dietary education by RD, PPN/TPN Comments: REC continue home TPN and diet as tolerated Expected Outcomes/Goals: to meet >75% est nutr needs Malnutrition Findings: Muscle Mass (Severe): Severe Depletion Body Fat Depletion (Non Severe: Mod to Severe Weight Status: Underweight BENITA LUTZ MD Dec 21, 2019 11:36
[2019-12-21] MEDS: TPN PER PHARMACY MC PRN (12:52)
--- NOTE | 2019-12-21 12:54 | NUR ---
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 TPN B:Pertinent PMH: EC fistula Height: 5 feet, 1 inches Weight: 46.1 kg Current diet: GI soft LABS: Sodium: 139 Potassium: 4.6 Chloride: 104 Calcium: 8.4 Corrected Calcium: 10.40 Magnesium: 2 CO2: 30 SCr: 0.6 Glucose: 111 Albumin: 1.5 AST: 11 ALT: 6 TPN FORMULA: TPN TYPE: Central Continuous AMINO ACIDS: 90 gm DEXTROSE: 285 gm LIPIDS: 35 gm SODIUM CHLORIDE: 120 mEq SODIUM ACETATE: 120 mEq POTASSIUM ACETATE: 30 mEq POTASSIUM PHOSPHATE: 22 mmol MAGNESIUM: 24 mEq CALCIUM: 10 mEq MULTIPLE VITAMIN: 10 ml TRACE ELEMENTS: MTE 5 1ml TPN PLAN: Continue same. Current TPN formula sent to patient's home TPN company ([employer]) for planned possible dc on Wednesday. R: Continue TPN Will monitor electrolytes, glucose, and tolerance to TPN. Sandra Muñiz RPH, 12/21/19 [id number]
[2019-12-21 15:14] VITALS: BP 127/60
--- NOTE | 2019-12-21 17:10 | NUR ---
SW following. Reviewed chart and spoke with RN and CM. Pt from home with TPN and HH. Pt may possibly discharge tomorrow, 12/22/2019. SW to continue following.
--- NOTE | 2019-12-21 17:47 | NUR ---
Wound Care Wound care follow up for abd fistula and abscess. Per Dr Tomlinson surgical style vac, with versatel contact layer, placed over fistula and lateral abscess to control drainage and allow excoriated skin to heal. Will apply for home vac and see if it gets approved, told pt POC. Educated pt and Selin RN if stool pools under dressing to remove vac dressing and continue with aquacel ag and abd or gauze. WC will check on vac tomorrow.
[2019-12-21] MEDS ORDERED: [UNRECOGNIZED DRUG - OTHER] IV SCH (22:00)
[2019-12-21] MEDS ORDERED: DEXTROSE 70% IV SCH (22:00)
[2019-12-21] MEDS ORDERED: AMINO ACID IV SCH (22:00)
[2019-12-21] MEDS ORDERED: TOTAL PARENTERAL NUTRITION IV SCH (22:00)
[2019-12-21 23:00] VITALS: BP 145/68
[2019-12-21] MEDS: ZOLPIDEM 5 MG TABLET. PO SCH (23:15)
[2019-12-22 03:00] VITALS: BP 157/78
[2019-12-22] MEDS: HYDROmorphone 2 MG/ML VIAL IV PRN ×5 (03:40→21:30)
[2019-12-22 06:05] LABS: CALCIUM 8.9 mg/dL (8.5-10.1); CREATININE 0.6 mg/dL (0.6-1.0); GFR 121.8; POTASSIUM 4.8 mmol/L (3.5-5.1)
[2019-12-22 06:13] LABS: BASO # 0.1 x10^3/uL (0.0-0.2); BASO % 2 % (0-3); EOS # 0.4 x10^3/uL (0.0-0.7); EOS % 8 % (0-3); HEMATOCRIT 25.4 % (36.0-47.0); HEMOGLOBIN 8.5 g/dL (12.0-15.5); LYMPH # 1.4 x10^3/uL (1.0-4.8); LYMPH % 31 % (24-48); MEAN CORPUSCULAR HEMOGLOBIN 29 pg (25-35); MEAN CORPUSCULAR HGB CONC 33 g/dL (31-37); MEAN CORPUSCULAR VOLUME 88 fL (79-100); MONO # 0.3 x10^3/uL (0.0-1.1); MONO % 6 % (0-9); NEUT # 2.3 x10^3/uL (1.8-7.7); NEUT % 53 % (31-73); PLATELET COUNT 589 x10^3/uL (140-400); RED BLOOD COUNT 2.89 x10^6/uL (3.50-5.40); RED CELL DISTRIBUTION WIDTH 17.9 % (11.5-14.5); WHITE BLOOD COUNT 4.5 x10^3/uL (4.0-11.0)
[2019-12-22 08:10] VITALS: BP 164/89
[2019-12-22] MEDS: SERTRALINE 50 MG TABLET. PO SCH (08:29)
[2019-12-22] MEDS: LACTOBACILLUS RHAMNOSUS GG 1 CAPSULE. PO SCH ×2 (08:29→21:28)
[2019-12-22] MEDS: VANCOMYCIN 125 MG/2.5 ML ORAL SOLUTION. PO SCH (08:29)
[2019-12-22] MEDS: PANTOPRAZOLE 40 MG TABLET.DR. PO SCH (08:29)
--- NOTE | 2019-12-22 08:29 | PDOC ---
Infectious Disease Note Subjective Subjective Feeling ok. Tolerating vac. She has some pain but tolerable No F/c/S//N/V/D/SOA/rash ROS ROS o/w neg Vital Sign Vital Signs Vital Signs Date Time Temp Pulse Resp B/P (MAP) Pulse Ox O2 Delivery O2 Flow Rate FiO2 12/22/19 04:10 16 98 Room Air 12/22/19 03:00 97.6 85 157/78 (104) 97.6 Physical Exam PHYSICAL EXAM GENERAL: She is sitting upright in bed. She looks comfortable. She is in no acute distress. HEENT: Oral cavity, pharynx is clear. She is a little cachectic. NECK: Supple, no JVD. LUNGS: Clear. HEART: S1, S2. Right-sided catheter without signs of complications. ABDOMEN: Nondistended, vac in place. Left abd side with some decreased fluc tuation. No tenderness/warmth/erythema EXTREMITIES: No clubbing, cyanosis or gross edema. SKIN: Warm to touch without signs of rash. NEUROLOGIC: She is alert and appropriate Labs Lab Laboratory Tests Test 12/22/19 04:23 White Blood Count 4.5 x10^3/uL (4.0-11.0) Red Blood Count 2.89 x10^6/uL (3.50-5.40) Hemoglobin 8.5 g/dL (12.0-15.5) Hematocrit 25.4 % (36.0-47.0) Mean Corpuscular Volume 88 fL (79-100) Mean Corpuscular Hemoglobin 29 pg (25-35) Mean Corpuscular Hemoglobin Concent 33 g/dL (31-37) Red Cell Distribution Width 17.9 % (11.5-14.5) Platelet Count 589 x10^3/uL (140-400) Neutrophils (%) (Auto) 53 % (31-73) Lymphocytes (%) (Auto) 31 % (24-48) Monocytes (%) (Auto) 6 % (0-9) Eosinophils (%) (Auto) 8 % (0-3) Basophils (%) (Auto) 2 % (0-3) Neutrophils # (Auto) 2.3 x10^3/uL (1.8-7.7) Lymphocytes # (Auto) 1.4 x10^3/uL (1.0-4.8) Monocytes # (Auto) 0.3 x10^3/uL (0.0-1.1) Eosinophils # (Auto) 0.4 x10^3/uL (0.0-0.7) Basophils # (Auto) 0.1 x10^3/uL (0.0-0.2) Sodium Level 136 mmol/L (136-145) Potassium Level 4.8 mmol/L (3.5-5.1) Chloride Level 101 mmol/L (98-107) Carbon Dioxide Level 31 mmol/L (21-32) Anion Gap 4 (6-14) Blood Urea Nitrogen 17 mg/dL (7-20) Creatinine 0.6 mg/dL (0.6-1.0) Estimated GFR (Cockcroft-Gault) 121.8 Glucose Level 88 mg/dL (70-99) Calcium Level 8.9 mg/dL (8.5-10.1) Magnesium Level 2.0 mg/dL (1.8-2.4) Micro Abd U/S /7Impression: 1. Anterior abdominal wall abscess extending to the cutaneous surface. ANAEROBIC-AEROBIC CULTURE Preliminary Preliminary MIXED AEROBIC ENE on 12/19/19 at 1014 INCLUDING: MODERATE [ESCHERICHIA COLI] MODERATE [PROTEUS MIRABILIS] MODERATE [KLEBSIELLA PNEUMONIAE] ESCHERICHIA COLI PROTEUS MIRABILIS KLEBSIELLA PNEUMONIAE Microbiology 12/17/19 Gram Stain - Final, Resulted 12/17/19 Aerobic and Anaerobic Culture, Resulted Pending 12/16/19 Blood Culture - Preliminary, Resulted NO GROWTH AFTER 2 DAYS Objective Assessment ASSESSMENT: 1. Left lower quadrant wounds had some purulent drainage but they appear to have opened up and drained some fluid. She is feeling better. cultures could represent - ? colonization collected from drainage on abd and with fistula 2. VANCOMYCIN allergy. 3. Enterocutaneous fistula. 4. Enterovesicular fistula. 5. Malnutrition. 6. History of Clostridium difficile. Plan Plan of Care Wound care per surgery and Wound care D/cont po vancomycin BID for now f/u cultures Monitor labs/temp ABBY MOTT MD Dec 22, 2019 08:29
[2019-12-22] MEDS: ZINC OXIDE 20% TOPICAL OINTMENT 28GM TUBE. TP SCH ×2 (08:36→21:00)
[2019-12-22] MEDS: MUPIROCIN 2 % NASAL OINTMENT 22GM TUBE. TP SCH ×2 (08:36→21:30)
[2019-12-22] MEDS: LIDOCAINE 2% TOPICAL JELLY 30GM TUBE. TP SCH ×2 (08:36→21:30)
--- NOTE | 2019-12-22 09:00 | NUR ---
Nursing Note Topical ointments non administered due to wound vac dressing covering areas that require medication. Wound vac leaking. Pt cleaned and vac reinforced with tegaderm. Wound care notified.
--- NOTE | 2019-12-22 09:53 | PDOC ---
SURGICAL PROGRESS NOTE Subjective Patient feeling much better today wound VAC in place she thinks this is helping significantly Vital Signs Vital Signs Date Time Temp Pulse Resp B/P (MAP) Pulse Ox O2 Delivery O2 Flow Rate FiO2 12/22/19 08:30 Room Air 12/22/19 08:10 98.3 79 16 164/89 (114) 99 98.3 I&O Intake and Output 12/22/19 07:00 Intake Total 2705 ml Balance 2705 ml Intake Oral 820 ml IV Total 1885 ml PATIENT HAS A GUPTA: No General: Alert, Oriented X3, Cooperative, No acute distress Abdomen: Normal bowel sounds, Soft, Other (Wound VAC in place) Labs Laboratory Tests Test 12/21/19 03:53 12/22/19 04:23 White Blood Count 4.4 x10^3/uL (4.0-11.0) 4.5 x10^3/uL (4.0-11.0) Red Blood Count 2.65 x10^6/uL (3.50-5.40) 2.89 x10^6/uL (3.50-5.40) Hemoglobin 7.9 g/dL (12.0-15.5) 8.5 g/dL (12.0-15.5) Hematocrit 23.2 % (36.0-47.0) 25.4 % (36.0-47.0) Mean Corpuscular Volume 87 fL (79-100) 88 fL (79-100) Mean Corpuscular Hemoglobin 30 pg (25-35) 29 pg (25-35) Mean Corpuscular Hemoglobin Concent 34 g/dL (31-37) 33 g/dL (31-37) Red Cell Distribution Width 17.7 % (11.5-14.5) 17.9 % (11.5-14.5) Platelet Count 588 x10^3/uL (140-400) 589 x10^3/uL (140-400) Neutrophils (%) (Auto) 53 % (31-73) 53 % (31-73) Lymphocytes (%) (Auto) 29 % (24-48) 31 % (24-48) Monocytes (%) (Auto) 9 % (0-9) 6 % (0-9) Eosinophils (%) (Auto) 7 % (0-3) 8 % (0-3) Basophils (%) (Auto) 2 % (0-3) 2 % (0-3) Neutrophils # (Auto) 2.3 x10^3/uL (1.8-7.7) 2.3 x10^3/uL (1.8-7.7) Lymphocytes # (Auto) 1.3 x10^3/uL (1.0-4.8) 1.4 x10^3/uL (1.0-4.8) Monocytes # (Auto) 0.4 x10^3/uL (0.0-1.1) 0.3 x10^3/uL (0.0-1.1) Eosinophils # (Auto) 0.3 x10^3/uL (0.0-0.7) 0.4 x10^3/uL (0.0-0.7) Basophils # (Auto) 0.1 x10^3/uL (0.0-0.2) 0.1 x10^3/uL (0.0-0.2) Sodium Level 139 mmol/L (136-145) 136 mmol/L (136-145) Potassium Level 4.6 mmol/L (3.5-5.1) 4.8 mmol/L (3.5-5.1) Chloride Level 104 mmol/L (98-107) 101 mmol/L (98-107) Carbon Dioxide Level 30 mmol/L (21-32) 31 mmol/L (21-32) Anion Gap 5 (6-14) 4 (6-14) Blood Urea Nitrogen 17 mg/dL (7-20) 17 mg/dL (7-20) Creatinine 0.6 mg/dL (0.6-1.0) 0.6 mg/dL (0.6-1.0) Estimated GFR (Cockcroft-Gault) 121.8 121.8 BUN/Creatinine Ratio 28 (6-20) Glucose Level 111 mg/dL (70-99) 88 mg/dL (70-99) Calcium Level 8.4 mg/dL (8.5-10.1) 8.9 mg/dL (8.5-10.1) Phosphorus Level 3.5 mg/dL (2.6-4.7) Magnesium Level 2.0 mg/dL (1.8-2.4) 2.0 mg/dL (1.8-2.4) Total Bilirubin 0.1 mg/dL (0.2-1.0) Aspartate Amino Transf (AST/SGOT) 11 U/L (15-37) Alanine Aminotransferase (ALT/SGPT) 6 U/L (14-59) Alkaline Phosphatase 99 U/L (46-116) Total Protein 6.9 g/dL (6.4-8.2) Albumin 1.5 g/dL (3.4-5.0) Albumin/Globulin Ratio 0.3 (1.0-1.7) Laboratory Tests Test 12/22/19 04:23 White Blood Count 4.5 x10^3/uL (4.0-11.0) Red Blood Count 2.89 x10^6/uL (3.50-5.40) Hemoglobin 8.5 g/dL (12.0-15.5) Hematocrit 25.4 % (36.0-47.0) Mean Corpuscular Volume 88 fL (79-100) Mean Corpuscular Hemoglobin 29 pg (25-35) Mean Corpuscular Hemoglobin Concent 33 g/dL (31-37) Red Cell Distribution Width 17.9 % (11.5-14.5) Platelet Count 589 x10^3/uL (140-400) Neutrophils (%) (Auto) 53 % (31-73) Lymphocytes (%) (Auto) 31 % (24-48) Monocytes (%) (Auto) 6 % (0-9) Eosinophils (%) (Auto) 8 % (0-3) Basophils (%) (Auto) 2 % (0-3) Neutrophils # (Auto) 2.3 x10^3/uL (1.8-7.7) Lymphocytes # (Auto) 1.4 x10^3/uL (1.0-4.8) Monocytes # (Auto) 0.3 x10^3/uL (0.0-1.1) Eosinophils # (Auto) 0.4 x10^3/uL (0.0-0.7) Basophils # (Auto) 0.1 x10^3/uL (0.0-0.2) Sodium Level 136 mmol/L (136-145) Potassium Level 4.8 mmol/L (3.5-5.1) Chloride Level 101 mmol/L (98-107) Carbon Dioxide Level 31 mmol/L (21-32) Anion Gap 4 (6-14) Blood Urea Nitrogen 17 mg/dL (7-20) Creatinine 0.6 mg/dL (0.6-1.0) Estimated GFR (Cockcroft-Gault) 121.8 Glucose Level 88 mg/dL (70-99) Calcium Level 8.9 mg/dL (8.5-10.1) Magnesium Level 2.0 mg/dL (1.8-2.4) Assessment/Plan 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
--- NOTE | 2019-12-22 10:04 | PDOC ---
PROGRESS NOTES Subjective Subjective feels better. afebrile. lab reviewed. bp is high.has a wound vac Objective Objective Vital Signs Date Time Temp Pulse Resp B/P (MAP) Pulse Ox O2 Delivery O2 Flow Rate FiO2 12/22/19 08:30 Room Air 12/22/19 08:10 98.3 79 16 164/89 (114) 99 98.3 Intake and Output 12/22/19 07:00 Intake Total 2705 ml Balance 2705 ml Intake Oral 820 ml IV Total 1885 ml Physical Exam Abdomen: Soft, Other (EC fistula and wound vac) Heart: Regular rate, Normal S1, Normal S2 Extremities: No edema General: Alert HEENT: Atraumatic Lungs: Clear to auscultation Neuro: Normal speech Psych/Mental Status: Mental status NL Skin: No rashes Assessment Assessment Assessment 1. Fever. resolved 2. HTN bp is high 3. Enterocutaneous fistula. 4. Enterovesical fistula. 5. New abdominal wounds in the left lower quadrant of the abdomen near the groin. 6. Severe protein-calorie malnutrition. 7. Anemia of chronic disease. 8. Enterovesical fistula. 9. Chronic abdominal pain secondary to adhesions. previous history of C . diff\ hypomagnesemia resolved continue wound vac dismiss tomorrow spoke with pharmacist to change TPN start amlodipine Comment Review of Relevant I have reviewed the following items lucila (where applicable) has been applied. Labs Laboratory Tests Test 12/21/19 03:53 12/22/19 04:23 White Blood Count 4.4 x10^3/uL (4.0-11.0) 4.5 x10^3/uL (4.0-11.0) Red Blood Count 2.65 x10^6/uL (3.50-5.40) 2.89 x10^6/uL (3.50-5.40) Hemoglobin 7.9 g/dL (12.0-15.5) 8.5 g/dL (12.0-15.5) Hematocrit 23.2 % (36.0-47.0) 25.4 % (36.0-47.0) Mean Corpuscular Volume 87 fL (79-100) 88 fL (79-100) Mean Corpuscular Hemoglobin 30 pg (25-35) 29 pg (25-35) Mean Corpuscular Hemoglobin Concent 34 g/dL (31-37) 33 g/dL (31-37) Red Cell Distribution Width 17.7 % (11.5-14.5) 17.9 % (11.5-14.5) Platelet Count 588 x10^3/uL (140-400) 589 x10^3/uL (140-400) Neutrophils (%) (Auto) 53 % (31-73) 53 % (31-73) Lymphocytes (%) (Auto) 29 % (24-48) 31 % (24-48) Monocytes (%) (Auto) 9 % (0-9) 6 % (0-9) Eosinophils (%) (Auto) 7 % (0-3) 8 % (0-3) Basophils (%) (Auto) 2 % (0-3) 2 % (0-3) Neutrophils # (Auto) 2.3 x10^3/uL (1.8-7.7) 2.3 x10^3/uL (1.8-7.7) Lymphocytes # (Auto) 1.3 x10^3/uL (1.0-4.8) 1.4 x10^3/uL (1.0-4.8) Monocytes # (Auto) 0.4 x10^3/uL (0.0-1.1) 0.3 x10^3/uL (0.0-1.1) Eosinophils # (Auto) 0.3 x10^3/uL (0.0-0.7) 0.4 x10^3/uL (0.0-0.7) Basophils # (Auto) 0.1 x10^3/uL (0.0-0.2) 0.1 x10^3/uL (0.0-0.2) Sodium Level 139 mmol/L (136-145) 136 mmol/L (136-145) Potassium Level 4.6 mmol/L (3.5-5.1) 4.8 mmol/L (3.5-5.1) Chloride Level 104 mmol/L (98-107) 101 mmol/L (98-107) Carbon Dioxide Level 30 mmol/L (21-32) 31 mmol/L (21-32) Anion Gap 5 (6-14) 4 (6-14) Blood Urea Nitrogen 17 mg/dL (7-20) 17 mg/dL (7-20) Creatinine 0.6 mg/dL (0.6-1.0) 0.6 mg/dL (0.6-1.0) Estimated GFR (Cockcroft-Gault) 121.8 121.8 BUN/Creatinine Ratio 28 (6-20) Glucose Level 111 mg/dL (70-99) 88 mg/dL (70-99) Calcium Level 8.4 mg/dL (8.5-10.1) 8.9 mg/dL (8.5-10.1) Phosphorus Level 3.5 mg/dL (2.6-4.7) Magnesium Level 2.0 mg/dL (1.8-2.4) 2.0 mg/dL (1.8-2.4) Total Bilirubin 0.1 mg/dL (0.2-1.0) Aspartate Amino Transf (AST/SGOT) 11 U/L (15-37) Alanine Aminotransferase (ALT/SGPT) 6 U/L (14-59) Alkaline Phosphatase 99 U/L (46-116) Total Protein 6.9 g/dL (6.4-8.2) Albumin 1.5 g/dL (3.4-5.0) Albumin/Globulin Ratio 0.3 (1.0-1.7) Laboratory Tests Test 12/22/19 04:23 White Blood Count 4.5 x10^3/uL (4.0-11.0) Red Blood Count 2.89 x10^6/uL (3.50-5.40) Hemoglobin 8.5 g/dL (12.0-15.5) Hematocrit 25.4 % (36.0-47.0) Mean Corpuscular Volume 88 fL (79-100) Mean Corpuscular Hemoglobin 29 pg (25-35) Mean Corpuscular Hemoglobin Concent 33 g/dL (31-37) Red Cell Distribution Width 17.9 % (11.5-14.5) Platelet Count 589 x10^3/uL (140-400) Neutrophils (%) (Auto) 53 % (31-73) Lymphocytes (%) (Auto) 31 % (24-48) Monocytes (%) (Auto) 6 % (0-9) Eosinophils (%) (Auto) 8 % (0-3) Basophils (%) (Auto) 2 % (0-3) Neutrophils # (Auto) 2.3 x10^3/uL (1.8-7.7) Lymphocytes # (Auto) 1.4 x10^3/uL (1.0-4.8) Monocytes # (Auto) 0.3 x10^3/uL (0.0-1.1) Eosinophils # (Auto) 0.4 x10^3/uL (0.0-0.7) Basophils # (Auto) 0.1 x10^3/uL (0.0-0.2) Sodium Level 136 mmol/L (136-145) Potassium Level 4.8 mmol/L (3.5-5.1) Chloride Level 101 mmol/L (98-107) Carbon Dioxide Level 31 mmol/L (21-32) Anion Gap 4 (6-14) Blood Urea Nitrogen 17 mg/dL (7-20) Creatinine 0.6 mg/dL (0.6-1.0) Estimated GFR (Cockcroft-Gault) 121.8 Glucose Level 88 mg/dL (70-99) Calcium Level 8.9 mg/dL (8.5-10.1) Magnesium Level 2.0 mg/dL (1.8-2.4) Microbiology 12/17/19 Gram Stain - Final, Resulted 12/17/19 Aerobic and Anaerobic Culture - Preliminary, Resulted 12/16/19 Blood Culture - Final, Complete NO GROWTH AFTER 5 DAYS Medications Current Medications Hydromorphone HCl (Dilaudid) 1 mg 1X ONCE IV Last administered on 12/16/19at 18:56; Start 12/16/19 at 18:45; Stop 12/16/19 at 18:46; Status DC Ondansetron HCl (Zofran) 4 mg 1X ONCE IVP Last administered on 12/16/19at 18:56; Start 12/16/19 at 18:45; Stop 12/16/19 at 18:46; Status DC Sodium Chloride 1,000 ml @ 1,000 mls/hr 1X ONCE IV Last administered on 12/16/19at 19:47; Start 12/16/19 at 18:45; Stop 12/16/19 at 19:44; Status DC Ondansetron HCl (Zofran) 4 mg PRN Q8HRS PRN IV NAUSEA/VOMITING; Start 12/16/19 at 20:15; Stop 12/17/19 at 20:14; Status DC Dextrose/Sodium Chloride 1,000 ml @ 75 mls/hr 1X ONCE IV Last administered on 12/16/19at 21:41; Start 12/16/19 at 20:15; Stop 12/17/19 at 09:34; Status DC Hydromorphone HCl (Dilaudid) 2 mg PRN Q4HRS PRN IV PAIN Last administered on 12/17/19at 08:06; Start 12/16/19 at 20:15; Stop 12/17/19 at 10:25; Status DC Zolpidem Tartrate (Ambien) 5 mg QHS PO Last administered on 12/21/19at 23:15; Start 12/16/19 at 21:00 Linezolid/Dextrose 300 ml @ 300 mls/hr Q12HR IV Last administered on 12/19/19at 09:11; Start 12/17/19 at 09:00; Stop 12/19/19 at 10:08; Status DC Piperacillin Sod/ Tazobactam Sod 3.375 gm/Sodium Chloride 50 ml @ 100 mls/hr Q6HRS IV Last administered on 12/21/19at 05:24; Start 12/17/19 at 01:00; Stop 12/21/19 at 10:50; Status DC Linezolid/Dextrose 300 ml @ 300 mls/hr ONCE ONCE IV Last administered on 12/16/19at 22:43; Start 12/16/19 at 21:00; Stop 12/16/19 at 21:59; Status DC Piperacillin Sod/ Tazobactam Sod 3.375 gm/Sodium Chloride 50 ml @ 100 mls/hr ONCE ONCE IV Last administered on 12/16/19at 20:46; Start 12/16/19 at 20:30; Stop 12/16/19 at 20:59; Status DC Neomycin/ Polymyxin/ Bacitracin (Triple Antibiotic Ointment) 1 pkt STK-MED ONCE TP ; Start 12/16/19 at 20:36; Stop 12/16/19 at 20:37; Status DC Mupirocin (Bactroban) 1 sang BID TP Last administered on 12/21/19at 09:02; Start 12/17/19 at 09:00 Hydromorphone HCl (Dilaudid) 1 mg PRN Q4HRS PRN IV PAIN Last administered on 12/18/19 14:34; Start 12/17/19 at 10:15; Stop 12/18/19 at 14:40; Status DC Acetaminophen (Tylenol) 650 mg PRN Q6HRS PRN PO MILD PAIN / TEMP > 100.3'F Last administered on 12/18/19 13:32; Start 12/17/19 at 10:15 Zinc Oxide (Zinc Oxide 20% Topical) 1 sang BID TP Last administered on 12/21/19 09:02; Start 12/17/19 at 11:00 Lidocaine HCl (Xylocaine 2% Topical 30gm Tube) 1 sang BID TP Last administered on 12/21/19 09:02; Start 12/17/19 at 11:00 Lorazepam (Ativan) 0.5 mg PRN Q6HRS PRN PO ANXIETY / AGITATION; Start 12/17/19 at 10:15 Ondansetron HCl (Zofran Odt) 4 mg PRN Q6HRS PRN PO NAUSEA/VOMITING; Start 12/17/19 at 10:15 Pantoprazole Sodium (Protonix) 40 mg DAILYAC PO Last administered on 12/22/19 08:29; Start 12/17/19 at 11:00 Dextrose/Sodium Chloride 1,000 ml @ 75 mls/hr [id number] IV Last administered on 12/17/19 10:45; Start 12/17/19 at 10:15; Stop 12/17/19 at 21:59; Status DC Sertraline HCl (Zoloft) 50 mg DAILY PO Last administered on 12/22/19at 08:29; Start 12/17/19 at 11:00 Info (Tpn Per Pharmacy) 1 each PRN DAILY PRN MC SEE COMMENTS Last administered on 12/21/19 12:52; Start 12/17/19 at 11:00 Sodium Chloride 120 meq/Sodium Acetate 120 meq/ Potassium Acetate 30 meq/Potassium Phosphate 22 mmol/ Magnesium Sulfate 24 meq/Calcium Gluconate 10 meq/ Multivitamins 10 ml/Chromium/ Copper/Manganese/ Seleni/Zn 1 ml/ Total Parenteral Nutrition/Amino Acids/Dextrose/ Fat Emulsion Intravenous 1,920 ml @ 80 mls/hr TPN CONT IV Last administered on 12/17/19at 22:49; Start 12/17/19 at 22:00; Stop 12/18/19 at 21:59; Status DC Lactobacillus Rhamnosus (Culturelle) 1 cap BID PO Last administered on 12/22/19at 08:29; Start 12/17/19 at 21:00 Vancomycin HCl (Vancomycin Oral Solution) 125 mg BID PO Last administered on 12/22/19at 08:29; Start 12/17/19 at 21:00; Stop 12/22/19 at 09:31; Status DC Magnesium Sulfate 100 ml @ 25 mls/hr 1X ONCE IV Last administered on 12/18/19at 11:00; Start 12/18/19 at 11:00; Stop 12/18/19 at 14:59; Status DC Sodium Chloride 120 meq/Sodium Acetate 120 meq/ Potassium Acetate 30 meq/Potassium Phosphate 22 mmol/ Magnesium Sulfate 24 meq/Calcium Gluconate 10 meq/ Multivitamins 10 ml/Chromium/ Copper/Manganese/ Seleni/Zn 1 ml/ Total Parenteral Nutrition/Amino Acids/Dextrose/ Fat Emulsion Intravenous 1,885 ml @ 78.542 mls/ hr TPN CONT IV Last administered on 12/18/19at 22:10; Start 12/18/19 at 22:00; Stop 12/19/19 at 21:59; Status DC Hydromorphone HCl (Dilaudid) 2 mg PRN Q6HRS PRN IV SEVERE PAIN Last admini stered on 12/21/19at 10:17; Start 12/18/19 at 14:45; Stop 12/21/19 at 11:33; Status DC Sodium Chloride 120 meq/Sodium Acetate 120 meq/ Potassium Acetate 30 meq/Potassium Phosphate 22 mmol/ Magnesium Sulfate 24 meq/Calcium Gluconate 10 meq/ Multivitamins 10 ml/Chromium/ Copper/Manganese/ Seleni/Zn 1 ml/ Total Parenteral Nutrition/Amino Acids/Dextrose/ Fat Emulsion Intravenous 1,885 ml @ 78.542 mls/ hr TPN CONT IV Last administered on 12/19/19at 21:26; Start 12/19/19 at 22:00; Stop 12/20/19 at 21:59; Status DC Sodium Chloride 120 meq/Sodium Acetate 120 meq/ Potassium Acetate 30 meq/Potassium Phosphate 22 mmol/ Magnesium Sulfate 24 meq/Calcium Gluconate 10 meq/ Multivitamins 10 ml/Chromium/ Copper/Manganese/ Seleni/Zn 1 ml/ Total Parenteral Nutrition/Amino Acids/Dextrose/ Fat Emulsion Intravenous 1,885 ml @ 78.542 mls/ hr TPN CONT IV Last administered on 12/20/19at 20:49; Start 12/20/19 at 22:00; Stop 12/21/19 at 21:59; Status DC Hydromorphone HCl (Dilaudid) 2 mg PRN Q4HRS PRN IV SEVERE PAIN Last administered on 12/22/19at 08:30; Start 12/21/19 at 11:30 Sodium Chloride 120 meq/Sodium Acetate 120 meq/ Potassium Acetate 30 meq/Potassium Phosphate 22 mmol/ Magnesium Sulfate 24 meq/Calcium Gluconate 10 meq/ Multivitamins 10 ml/Chromium/ Copper/Manganese/ Seleni/Zn 1 ml/ Total Parenteral Nutrition/Amino Acids/Dextrose/ Fat Emulsion Intravenous 1,885 ml @ 78.542 mls/ hr TPN CONT IV Last administered on 12/21/19at 23:17; Start 12/21/19 at 22:00; Stop 12/22/19 at 21:59 Active Scripts Active Dilaudid (Hydromorphone Hcl) 2 Mg Tablet 1 Tab PO Q6HRS PRN MDD 4 Tablet(s) Pantoprazole Sodium (Pantoprazole Sodium) 40 Mg Tablet.dr 40 Mg PO DAILYAC Tylenol (Acetaminophen) 325 Mg Tablet 650 Mg PO PRN Q6HRS PRN [Pantoprazole] 40 MG Tablet.dr 40 Mg PO DAILYAC 30 Days Zinc Oxide 56.7 Gm Oint...g. 1 Sang TP BID Ambien (Zolpidem Tartrate) 5 Mg Tablet 5 Mg PO PRN QHS PRN 30 Days [Tpn Per Pharmacy] 1 EACH Each 1 Each MC PRN DAILY PRN TPN at 85cc/hour Sertraline Hcl 50 Mg Tablet 50 Mg PO DAILY 30 Days Lidocaine 35.44 Gm Oint...g. 1 Sang TP BID Reported Ondansetron Hcl 4 Mg Tablet 4 Mg PO PRN Q6HRS PRN Lorazepam 0.5 Mg Tablet 0.5 Mg PO Q6HRS PRN Vitals/I & O Vital Sign - Last 24 Hours 12/21/19 12/21/19 12/21/19 12/21/19 11:08 15:14 19:37 20:00 Temp 98.6 98.4 98.6 98.4 Pulse 87 85 Resp 18 17 18 B/P (MAP) 111/65 (80) 127/60 (82) Pulse Ox 97 100 100 O2 Delivery Room Air Room Air Room Air Room Air 12/21/19 12/21/19 12/21/19 12/22/19 20:07 23:00 23:40 00:10 Temp 98.2 98.2 Pulse 82 Resp 18 18 18 17 B/P (MAP) 145/68 (93) Pulse Ox 100 99 100 100 O2 Delivery Room Air Room Air Room Air Room Air 12/22/19 12/22/19 12/22/19 12/22/19 03:00 03:40 04:10 08:00 Temp 97.6 97.6 Pulse 85 Resp 18 17 16 B/P (MAP) 157/78 (104) Pulse Ox 98 98 98 O2 Delivery Room Air Room Air Room Air Room Air 12/22/19 12/22/19 08:10 08:30 Temp 98.3 98.3 Pulse 79 Resp 16 B/P (MAP) 164/89 (114) Pulse Ox 99 O2 Delivery Room Air Room Air Intake and Output 12/21/19 12/21/19 12/22/19 15:00 23:00 07:00 Intake Total 220 ml 200 ml 2285 ml Balance 220 ml 200 ml 2285 ml Justicifation of Admission Dx: Justifications for Admission: Justification of Admission Dx: Yes Nutrition Consultation Dietary Evaluation: Recommendations by RD: Dietary education by RD, PPN/TPN Comments: REC continue home TPN and diet as tolerated Expected Outcomes/Goals: to meet >75% est nutr needs- goal ongoing Malnutrition Findings: Muscle Mass (Severe): Severe Depletion Body Fat Depletion (Non Severe: Mod to Severe Weight Status: Underweight BENITA LUTZ MD Dec 22, 2019 10:04
[2019-12-22] MEDS ORDERED: AMLO5TAB10 PO (10:09)
--- NOTE | 2019-12-22 10:13 | SNU/HH DC ---
DISCHARGE WITH HOME HEALTH DISCHARGE INFORMATION: Discharge Date: Dec 22, 2019 Final Diagnosis: enteric cutaneous fistula. chronic abdominal pain due to adhesions Condition on Discharge: Stable CODE STATUS: Code Status: Full HOME HEALTH: Face to Face: I certify this patient is under my care and that I, or a nurse practitioner or physician's dental assistant medical assistant working with me, had a face to face encounter that meets the physician face to face encounter requirements with this patient on []. RN For Eval/Treatment: Yes Physical Therapy For: Evalulation/Treatment Occupational Therapy For: Evaluation/Treatment Pt Meets Homebound Status: Limited distance walking, Other: (TPN and wound care. currnetly with wound vac) POST DISCHARGE ORDERS: Activity Instructions for Disc: Activity as tolerated Weight Bearing Status after Di: Full weight bearing Bathing Instructions: Shower-keep dressing dry DIET AFTER DISCHARGE: TPN at 85 cc/hour. same formula as before admission Wound/Incision Care: Change dressing, Reinforce dressing PRN CHECKS AFTER DISCHARGE: Checks after discharge: Check blood press - daily, Check your Temp as needed, Weigh Yourself Daily FOLLOW-UP: PCP to follow Home Health: dr. cisneros Follow up with: dr. cisneros next week DC TO SNF LABS: fax lab results to dr. cisneros. fax [phone] Additional Instructions: cbc and cmp and magnesium and phosphorus every Wednesday and fax results to dr. Cisneros, .fax [phone]. continue TPN TREATMENT/EQUIPMENT ORDERS: Adaptive Equipment Issued: None CERTIFICATION STATEMENT: Certification Statement: Certification Statement: Based on the above finding, I certify that this patient is confined to the home and needs intermittent care home care, physical therapy and/or speech therapy, or continues to need occupational therapy.~ This patient is under my care, and I have initiated the establishment of the plan of care.~ This patient will be followed by myself or a community physician who will periodically review the plan of care. Home Meds Active Scripts Amlodipine Besylate (AMLODIPINE BESYLATE) 5 Mg Tablet, 5 MG PO DAILY for HTN, #30 TAB Prov:BENITA CISNEROS MD 12/22/19 Hydromorphone Hcl (DILAUDID) 2 Mg Tablet, 1 TAB PO Q6HRS PRN for pain MDD 4 Tablet(s), #30 TAB 0 Refills Prov:BENITA CISNEROS MD 07/18/19 Pantoprazole Sodium (PANTOPRAZOLE SODIUM ) 40 Mg Tablet.dr, 40 MG PO DAILYAC for reflux esophagitis, #30 TAB.SR Prov:BENITA CISNEROS MD 07/18/19 Acetaminophen (TYLENOL) 325 Mg Tablet, 650 MG PO PRN Q6HRS PRN for MILD PAIN / TEMP, #30 TAB Prov:BENITA CISNEROS MD 01/03/19 [Pantoprazole] 40 MG TABLET. No Conflict Check, 40 MG PO DAILYAC for gerd for 30 Days Prov:BENITA CISNEROS MD 08/13/18 Zinc Oxide (ZINC OXIDE) 56.7 Gm Oint...g., 1 WANDY TP BID for abdominal skin excoriation, #30 GR Prov:BENITA CISNEROS MD 07/11/18 Zolpidem Tartrate (AMBIEN) 5 Mg Tablet, 5 MG PO PRN QHS PRN for INSOMNIA for 30 Days, TAB Prov:BENITA CISNEROS MD 06/23/18 [Tpn Per Pharmacy] 1 EACH EACH No Conflict Check, 1 EACH PRN DAILY PRN for SEE COMMENTS TPN at 85cc/hour Prov:BENITA CISNEROS MD 06/23/18 Sertraline Hcl (SERTRALINE HCL) 50 Mg Tablet, 50 MG PO DAILY for 30 Days, #30 TAB Prov:BENITA CISNEROS MD 01/05/17 Lidocaine (LIDOCAINE) 35.44 Gm Oint...g., 1 WANDY TP BID, #30 Prov:BENITA CISNEROS MD 12/18/15 Reported Medications Ondansetron Hcl (ONDANSETRON HCL) 4 Mg Tablet, 4 MG PO PRN Q6HRS PRN for NAUSEA 07/12/19 Lorazepam (LORAZEPAM) 0.5 Mg Tablet, 0.5 MG PO Q6HRS PRN for ANXIETY, TAB 08/31/16 BENITA CISNEROS MD Dec 22, 2019 10:13
--- NOTE | 2019-12-22 10:19 | PDOC ---
Provider Note Provider Note discharge summary dictated # [id number] Justicifation of Admission Dx: Justifications for Admission: Justification of Admission Dx: Yes BENITA LUTZ MD Dec 22, 2019 10:19
[2019-12-22 11:00] VITALS: BP 135/75
[2019-12-22] MEDS ORDERED: amLODIPine BESYLATE 5 MG TABLET PO SCH (11:00)
--- NOTE | 2019-12-22 11:17 | DS ---
DATE OF DISCHARGE: DATE OF ANTICIPATED DISMISSAL: 12/23/2019 CONSULTANTS: Include Dr. Muniz, Dr. Tomlinson, Dr. Dubon, and Dr. Ortiz. FINAL DIAGNOSES: 1. Fever, which resolved. Blood cultures were negative. 2. Enterocutaneous fistula. 3. Abdominal wound. 4. Enterovesical fistula. 5. Hypertension. 6. Abdominal wounds. 7. Severe protein-calorie malnutrition. 8. Anemia of chronic disease. 9. Chronic abdominal pain due to adhesions. 10. History of Clostridium difficile colitis. 11. Hypomagnesemia. HOSPITAL COURSE: The patient is a 64-year-old -[place] Citizen female with a history of enterocutaneous fistula, maintained on home total parenteral nutrition with enterovesical fistula, chronic abdominal pain due to adhesions with previous surgical procedures to repair her enterocutaneous fistula all failed with a mesh in place. [facility]. She had a fever of 100.4 degrees at home. She was admitted to the hospital, temperature was 99.4 degrees. The blood cultures were ordered and were eventually negative. She was seen by Dr. Muniz in consultation and was treated with Zyvox and Zosyn. Also started on oral vancomycin with a history of Clostridium difficile colitis in the past. The patient's blood cultures were negative. The antibiotics were discontinued, and the oral vancomycin was discontinued today. She was seen by the wound care team and they placed a wound VAC yesterday, seen by Dr. Tomlinson for General Surgery. She had a CAT scan of the abdomen and pelvis, and an ultrasound of the abdomen. There was a question of abdominal abscess on the ultrasound, seen in consultation by Dr. Dubon who reviewed it, and said there was no evidence of abscess and did not recommend any type of drainage or percutaneous drain to be placed. Therefore, wound VAC was placed yesterday and she seems to be tolerating it really well. Her blood pressure was high today and was started on amlodipine 5 mg every day. The TPN was reviewed and I discussed that with the pharmacist he is going to remove the potassium acetate and substitute that with potassium chloride 30 mEq every day, as her bicarbonate was up to 31. Potassium level was 4.8. She was on potassium chloride and her TPN at home. She continued to do well. Abdominal pain improved. She received IV Dilaudid p.r.n. for pain control. I anticipate she will be dismissed to home with home health on 12/22, told to follow up with Dr. Cisneros in the office in 1 week. She is followed by the visiting nurse who will take care of the wound VAC if she does go home with that and the TPN. She will have a CBC, CMP, magnesium, and phosphorus every Wednesday, results faxed to Dr. Cisneros. She will be dismissed on TPN at 80 mL an hour, Dilaudid 2 mg p.o. q.i.d. p.r.n. for pain, lidocaine cream followed by zinc oxide 20% b.i.d. to the abdominal wall, but that probably would not be necessary with the wound VAC, lorazepam 0.5 mg p.o. every 6 hours p.r.n. anxiety, Protonix 40 mg every day, sertraline 50 mg every day, Tylenol 650 mg every 6 hours p.r.n., amlodipine 5 mg p.o. daily, Zofran 4 mg p.o. every 6 hours p.r.n., Ambien 5 mg at bedtime p.r.n. BENITA CISNEROS MD DR: NABILA/jd JOB#: [id number] / [id number]
[2019-12-22] MEDS: TPN PER PHARMACY MC PRN (11:50)
--- NOTE | 2019-12-22 11:53 | NUR ---
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 TPN B:Pertinent PMH: EC fistula Height: 5 feet, 1 inches Weight: 50.0 kg Current diet: GI soft LABS: Sodium: 136 Potassium: 4.8 Chloride: 101 Calcium: 8.9 Corrected Calcium: 10.90 Magnesium: 2 CO2: 31 SCr: 0.6 Glucose: 88 Albumin: 1.5 AST: 11 ALT: 6 TPN FORMULA: TPN TYPE: Central Continuous AMINO ACIDS: 90 gm DEXTROSE: 285 gm LIPIDS: 35 gm SODIUM CHLORIDE: 120 mEq SODIUM ACETATE: 120 mEq POTASSIUM CHLORIDE: 30 mEq POTASSIUM PHOSPHATE: 22 mmol MAGNESIUM: 24 mEq CALCIUM: 10 mEq MULTIPLE VITAMIN: 10 ml TRACE ELEMENTS: MTE 5 1ml(s) TPN PLAN: Potassium changed to chloride salt form per MD orders. Update faxed to patient OP TPN company ([employer]) R: Continue TPN Will monitor electrolytes, glucose, and tolerance to TPN. Sandra Muñiz RPH, 12/22/19 [id number]
[2019-12-22 15:00] VITALS: BP 129/76
--- NOTE | 2019-12-22 16:15 | NUR ---
SW following. SW reviewed chart and spoke with RN. Dr. Cisneros to discharge patient tomorrow, 12/23/2019. SW added patient to the weekend discharge list. Discharge orders to be faxed to [facility], ; fax [phone] for TPN resumption and [facility], ; fax [phone] for resumption of HH. No further SW needs at this time.
[2019-12-22 19:00] VITALS: BP 125/74
[2019-12-22] MEDS ORDERED: ALTEPLASE 1MG SYRINGE. INT CAT ONE (19:00)
[2019-12-22] MEDS: ZOLPIDEM 5 MG TABLET. PO SCH (21:29)
[2019-12-22] MEDS ORDERED: DEXTROSE 70% IV SCH (22:00)
[2019-12-22] MEDS ORDERED: [UNRECOGNIZED DRUG - OTHER] IV SCH (22:00)
[2019-12-22] MEDS ORDERED: TOTAL PARENTERAL NUTRITION IV SCH (22:00)
[2019-12-22] MEDS ORDERED: AMINO ACID IV SCH (22:00)
[2019-12-22 23:00] VITALS: BP 135/53
[2019-12-23] MEDS: HYDROmorphone 2 MG/ML VIAL IV PRN ×3 (01:44→15:32)
[2019-12-23 03:30] VITALS: BP 143/76
[2019-12-23 06:39] VITALS: BP 108/65
[2019-12-23] MEDS: LACTOBACILLUS RHAMNOSUS GG 1 CAPSULE. PO SCH (08:00)
[2019-12-23] MEDS: PANTOPRAZOLE 40 MG TABLET.DR. PO SCH (08:00)
[2019-12-23] MEDS: SERTRALINE 50 MG TABLET. PO SCH (08:00)
[2019-12-23] MEDS: LIDOCAINE 2% TOPICAL JELLY 30GM TUBE. TP SCH (08:03)
[2019-12-23] MEDS: MUPIROCIN 2 % NASAL OINTMENT 22GM TUBE. TP SCH (08:03)
[2019-12-23] MEDS: ZINC OXIDE 20% TOPICAL OINTMENT 28GM TUBE. TP SCH (08:04)
--- NOTE | 2019-12-23 08:45 | PDOC ---
Infectious Disease Note Subjective Subjective Feeling ok.Vac off because of pain and feeling better. No F/c/S//N/V/D/SOA/rash ROS ROS o/w neg Vital Sign Vital Signs Vital Signs Date Time Temp Pulse Resp B/P (MAP) Pulse Ox O2 Delivery O2 Flow Rate FiO2 12/23/19 08:15 Room Air 12/23/19 06:39 98.2 93 16 108/65 (79) 96 98.2 Physical Exam PHYSICAL EXAM GENERAL: She is sitting upright in bed. She looks comfortable. She is in no acute distress. HEENT: Oral cavity, pharynx is clear. She is a little cachectic. NECK: Supple, no JVD. LUNGS: Clear. HEART: S1, S2. Right-sided catheter without signs of complications. ABDOMEN: Nondistended, vac off. Left abd side with some decreased fluctuation. No tenderness/warmth/erythema EXTREMITIES: No clubbing, cyanosis or gross edema. SKIN: Warm to touch without signs of rash. NEUROLOGIC: She is alert and appropriate Labs Micro Abd U/S /7Impression: 1. Anterior abdominal wall abscess extending to the cutaneous surface. ANAEROBIC-AEROBIC CULTURE Preliminary Preliminary MIXED AEROBIC ENE on 12/19/19 at 1014 INCLUDING: MODERATE [ESCHERICHIA COLI] MODERATE [PROTEUS MIRABILIS] MODERATE [KLEBSIELLA PNEUMONIAE] ESCHERICHIA COLI PROTEUS MIRABILIS KLEBSIELLA PNEUMONIAE Microbiology 12/17/19 Gram Stain - Final, Resulted 12/17/19 Aerobic and Anaerobic Culture, Resulted Pending 12/16/19 Blood Culture - Preliminary, Resulted NO GROWTH AFTER 2 DAYS Objective Assessment ASSESSMENT: 1. Left lower quadrant wounds had some purulent drainage but they appear to have opened up and drained some fluid. She is feeling better. cultures could represent - ? colonization collected from drainage on abd and with fistula 2. VANCOMYCIN allergy. 3. Enterocutaneous fistula. 4. Enterovesicular fistula. 5. Malnutrition. 6. History of Clostridium difficile. Plan Plan of Care Wound care per surgery and Wound care off abx ABBY MOTT MD Dec 23, 2019 08:45
[2019-12-23 11:00] VITALS: BP 124/77
--- NOTE | 2019-12-23 11:07 | PDOC ---
PROGRESS NOTES Subjective Subjective feels well. afebrile. systolic bp 108 and will d/c amlodipine. nurse and patient aware that amlodipine is discontinued. wound vac discontinued as it did not hold suction. Objective Objective Vital Signs Date Time Temp Pulse Resp B/P (MAP) Pulse Ox O2 Delivery O2 Flow Rate FiO2 12/23/19 08:15 Room Air 12/23/19 06:39 98.2 93 16 108/65 (79) 96 98.2 Intake and Output 12/23/19 07:00 Intake Total 300 ml Balance 300 ml Intake Oral 300 ml # Voids 3 # Bowel Movements 1 Physical Exam Abdomen: Soft, Other (EC fistula) Heart: Regular rate, Normal S1, Normal S2 Extremities: No edema General: Alert HEENT: Atraumatic Lungs: Clear to auscultation Neuro: Normal speech Psych/Mental Status: Mental status NL Skin: No rashes Assessment Assessment Assessment 1. Fever. resolved 2. HTN 3. Enterocutaneous fistula. 4. Enterovesical fistula. 5. New abdominal wounds in the left lower quadrant of the abdomen near the groin. 6. Severe protein-calorie malnutrition. 7. Anemia of chronic disease. 8. Enterovesical fistula. 9. Chronic abdominal pain secondary to adhesions. previous history of C . diff\ hypomagnesemia resolved Plan Plan of Care d/c amlodipine dismiss today to home with home health and home TPN Comment Review of Relevant I have reviewed the following items lucila (where applicable) has been applied. Labs Laboratory Tests Test 12/22/19 04:23 White Blood Count 4.5 x10^3/uL (4.0-11.0) Red Blood Count 2.89 x10^6/uL (3.50-5.40) Hemoglobin 8.5 g/dL (12.0-15.5) Hematocrit 25.4 % (36.0-47.0) Mean Corpuscular Volume 88 fL (79-100) Mean Corpuscular Hemoglobin 29 pg (25-35) Mean Corpuscular Hemoglobin Concent 33 g/dL (31-37) Red Cell Distribution Width 17.9 % (11.5-14.5) Platelet Count 589 x10^3/uL (140-400) Neutrophils (%) (Auto) 53 % (31-73) Lymphocytes (%) (Auto) 31 % (24-48) Monocytes (%) (Auto) 6 % (0-9) Eosinophils (%) (Auto) 8 % (0-3) Basophils (%) (Auto) 2 % (0-3) Neutrophils # (Auto) 2.3 x10^3/uL (1.8-7.7) Lymphocytes # (Auto) 1.4 x10^3/uL (1.0-4.8) Monocytes # (Auto) 0.3 x10^3/uL (0.0-1.1) Eosinophils # (Auto) 0.4 x10^3/uL (0.0-0.7) Basophils # (Auto) 0.1 x10^3/uL (0.0-0.2) Sodium Level 136 mmol/L (136-145) Potassium Level 4.8 mmol/L (3.5-5.1) Chloride Level 101 mmol/L (98-107) Carbon Dioxide Level 31 mmol/L (21-32) Anion Gap 4 (6-14) Blood Urea Nitrogen 17 mg/dL (7-20) Creatinine 0.6 mg/dL (0.6-1.0) Estimated GFR (Cockcroft-Gault) 121.8 Glucose Level 88 mg/dL (70-99) Calcium Level 8.9 mg/dL (8.5-10.1) Magnesium Level 2.0 mg/dL (1.8-2.4) Microbiology 12/17/19 Gram Stain - Final, Complete 12/17/19 Aerobic and Anaerobic Culture - Final, Complete 12/16/19 Blood Culture - Final, Complete NO GROWTH AFTER 5 DAYS Medications Current Medications Hydromorphone HCl (Dilaudid) 1 mg 1X ONCE IV Last administered on 12/16/19at 18 :56; Start 12/16/19 at 18:45; Stop 12/16/19 at 18:46; Status DC Ondansetron HCl (Zofran) 4 mg 1X ONCE IVP Last administered on 12/16/19at 18:56; Start 12/16/19 at 18:45; Stop 12/16/19 at 18:46; Status DC Sodium Chloride 1,000 ml @ 1,000 mls/hr 1X ONCE IV Last administered on 12/16/19at 19:47; Start 12/16/19 at 18:45; Stop 12/16/19 at 19:44; Status DC Ondansetron HCl (Zofran) 4 mg PRN Q8HRS PRN IV NAUSEA/VOMITING; Start 12/16/19 at 20:15; Stop 12/17/19 at 20:14; Status DC Dextrose/Sodium Chloride 1,000 ml @ 75 mls/hr 1X ONCE IV Last administered on 12/16/19at 21:41; Start 12/16/19 at 20:15; Stop 12/17/19 at 09:34; Status DC Hydromorphone HCl (Dilaudid) 2 mg PRN Q4HRS PRN IV PAIN Last administered on 12/17/19at 08:06; Start 12/16/19 at 20:15; Stop 12/17/19 at 10:25; Status DC Zolpidem Tartrate (Ambien) 5 mg QHS PO Last administered on 12/22/19at 21:29; Start 12/16/19 at 21:00 Linezolid/Dextrose 300 ml @ 300 mls/hr Q12HR IV Last administered on 12/19/19at 09:11; Start 12/17/19 at 09:00; Stop 12/19/19 at 10:08; Status DC Piperacillin Sod/ Tazobactam Sod 3.375 gm/Sodium Chloride 50 ml @ 100 mls/hr Q6HRS IV Last administered on 12/21/19at 05:24; Start 12/17/19 at 01:00; Stop 12/21/19 at 10:50; Status DC Linezolid/Dextrose 300 ml @ 300 mls/hr ONCE ONCE IV Last administered on 12/16/19at 22:43; Start 12/16/19 at 21:00; Stop 12/16/19 at 21:59; Status DC Piperacillin Sod/ Tazobactam Sod 3.375 gm/Sodium Chloride 50 ml @ 100 mls/hr ONCE ONCE IV Last administered on 12/16/19at 20:46; Start 12/16/19 at 20:30; Stop 12/16/19 at 20:59; Status DC Neomycin/ Polymyxin/ Bacitracin (Triple Antibiotic Ointment) 1 pkt STK-MED ONCE TP ; Start 12/16/19 at 20:36; Stop 12/16/19 at 20:37; Status DC Mupirocin (Bactroban) 1 sang BID TP Last administered on 12/23/19 08:03; Start 12/17/19 at 09:00 Hydromorphone HCl (Dilaudid) 1 mg PRN Q4HRS PRN IV PAIN Last administered on 12/18/19 14:34; Start 12/17/19 at 10:15; Stop 12/18/19 at 14:40; Status DC Acetaminophen (Tylenol) 650 mg PRN Q6HRS PRN PO MILD PAIN / TEMP > 100.3'F Last administered on 12/18/19 13:32; Start 12/17/19 at 10:15 Zinc Oxide (Zinc Oxide 20% Topical) 1 sang BID TP Last administered on 12/23/19 08:04; Start 12/17/19 at 11:00 Lidocaine HCl (Xylocaine 2% Topical 30gm Tube) 1 sang BID TP Last administered on 12/23/19 08:03; Start 12/17/19 at 11:00 Lorazepam (Ativan) 0.5 mg PRN Q6HRS PRN PO ANXIETY / AGITATION; Start 12/17/19 at 10:15 Ondansetron HCl (Zofran Odt) 4 mg PRN Q6HRS PRN PO NAUSEA/VOMITING; Start 12/17/19 at 10:15 Pantoprazole Sodium (Protonix) 40 mg DAILYAC PO Last administered on 12/23/19at 08:00; Start 12/17/19 at 11:00 Dextrose/Sodium Chloride 1,000 ml @ 75 mls/hr [id number] IV Last administered on 12/17/19at 10:45; Start 12/17/19 at 10:15; Stop 12/17/19 at 21:59; Status DC Sertraline HCl (Zoloft) 50 mg DAILY PO Last administered on 12/23/19 08:00; Start 12/17/19 at 11:00 Info (Tpn Per Pharmacy) 1 each PRN DAILY PRN MC SEE COMMENTS Last administered on 12/22/19at 11:50; Start 12/17/19 at 11:00 Sodium Chloride 120 meq/Sodium Acetate 120 meq/ Potassium Acetate 30 meq/Potassium Phosphate 22 mmol/ Magnesium Sulfate 24 meq/Calcium Gluconate 10 meq/ Multivitamins 10 ml/Chromium/ Copper/Manganese/ Seleni/Zn 1 ml/ Total Parenteral Nutrition/Amino Acids/Dextrose/ Fat Emulsion Intravenous 1,920 ml @ 80 mls/hr TPN CONT IV Last administered on 12/17/19at 22:49; Start 12/17/19 at 22:00; Stop 12/18/19 at 21:59; Status DC Lactobacillus Rhamnosus (Culturelle) 1 cap BID PO Last administered on 12/23/19at 08:00; Start 12/17/19 at 21:00 Vancomycin HCl (Vancomycin Oral Solution) 125 mg BID PO Last administered on 12/22/19at 08:29; Start 12/17/19 at 21:00; Stop 12/22/19 at 09:31; Status DC Magnesium Sulfate 100 ml @ 25 mls/hr 1X ONCE IV Last administered on 12/18/19at 11:00; Start 12/18/19 at 11:00; Stop 12/18/19 at 14:59; Status DC Sodium Chloride 120 meq/Sodium Acetate 120 meq/ Potassium Acetate 30 meq/Potassium Phosphate 22 mmol/ Magnesium Sulfate 24 meq/Calcium Gluconate 10 meq/ Multivitamins 10 ml/Chromium/ Copper/Manganese/ Seleni/Zn 1 ml/ Total Parenteral Nutrition/Amino Acids/Dextrose/ Fat Emulsion Intravenous 1,885 ml @ 78.542 mls/ hr TPN CONT IV Last administered on 12/18/19at 22:10; Start 12/18/19 at 22:00; Stop 12/19/19 at 21:59; Status DC Hydromorphone HCl (Dilaudid) 2 mg PRN Q6HRS PRN IV SEVERE PAIN Last administered on 12/21/19at 10:17; Start 12/18/19 at 14:45; Stop 12/21/19 at 11:33; Status DC Sodium Chloride 120 meq/Sodium Acetate 120 meq/ Potassium Acetate 30 meq/Potassium Phosphate 22 mmol/ Magnesium Sulfate 24 meq/Calcium Gluconate 10 meq/ Multivitamins 10 ml/Chromium/ Copper/Manganese/ Seleni/Zn 1 ml/ Total Parenteral Nutrition/Amino Acids/Dextrose/ Fat Emulsion Intravenous 1,885 ml @ 78.542 mls/ hr TPN CONT IV Last administered on 12/19/19at 21:26; Start 12/19/19 at 22:00; Stop 12/20/19 at 21:59; Status DC Sodium Chloride 120 meq/Sodium Acetate 120 meq/ Potassium Acetate 30 meq/Potassium Phosphate 22 mmol/ Magnesium Sulfate 24 meq/Calcium Gluconate 10 meq/ Multivitamins 10 ml/Chromium/ Copper/Manganese/ Seleni/Zn 1 ml/ Total Parenteral Nutrition/Amino Acids/Dextrose/ Fat Emulsion Intravenous 1,885 ml @ 78.542 mls/ hr TPN CONT IV Last administered on 12/20/19at 20:49; Start 12/20/19 at 22:00; Stop 12/21/19 at 21:59; Status DC Hydromorphone HCl (Dilaudid) 2 mg PRN Q4HRS PRN IV SEVERE PAIN Last administered on 12/23/19at 01:44; Start 12/21/19 at 11:30 Sodium Chloride 120 meq/Sodium Acetate 120 meq/ Potassium Acetate 30 meq/Potassium Phosphate 22 mmol/ Magnesium Sulfate 24 meq/Calcium Gluconate 10 meq/ Multivitamins 10 ml/Chromium/ Copper/Manganese/ Seleni/Zn 1 ml/ Total Parenteral Nutrition/Amino Acids/Dextrose/ Fat Emulsion Intravenous 1,885 ml @ 78.542 mls/ hr TPN CONT IV Last administered on 12/21/19at 23:17; Start 12/21/19 at 22:00; Stop 12/22/19 at 21:59; Status DC Amlodipine Besylate (Norvasc) 5 mg DAILY PO Last administered on 12/22/19at 12:51; Start 12/22/19 at 11:00 Sodium Chloride 120 meq/Sodium Acetate 120 meq/ Potassium Chloride 30 meq/ Potassium Phosphate 22 mmol/ Magnesium Sulfate 24 meq/Calcium Gluconate 10 meq/ Multivitamins 10 ml/Chromium/ Copper/Manganese/ Seleni/Zn 1 ml/ Total Parenteral Nutrition/Amino Acids/Dextrose/ Fat Emulsion Intravenous 1,920 ml @ 80 mls/hr TPN CONT IV Last administered on 12/23/19at 01:43; Start 12/22/19 at 22:00; Stop 12/23/19 at 21:59 Alteplase, Recombinant (Cathflo For Central Catheter Clearance) 1 mg 1X ONCE INT CAT Last administered on 12/23/19at 01:43; Start 12/22/19 at 19:00; Stop 12/22/19 at 19:01; Status DC Active Scripts Active Amlodipine Besylate 5 Mg Tablet 5 Mg PO DAILY Dilaudid (Hydromorphone Hcl) 2 Mg Tablet 1 Tab PO Q6HRS PRN MDD 4 Tablet(s) Pantoprazole Sodium (Pantoprazole Sodium) 40 Mg Tablet.dr 40 Mg PO DAILYAC Tylenol (Acetaminophen) 325 Mg Tablet 650 Mg PO PRN Q6HRS PRN [Pantoprazole] 40 MG Tablet.dr 40 Mg PO DAILYAC 30 Days Zinc Oxide 56.7 Gm Oint...g. 1 Sang TP BID Ambien (Zolpidem Tartrate) 5 Mg Tablet 5 Mg PO PRN QHS PRN 30 Days [Tpn Per Pharmacy] 1 EACH Each 1 Each MC PRN DAILY PRN TPN at 85cc/hour Sertraline Hcl 50 Mg Tablet 50 Mg PO DAILY 30 Days Lidocaine 35.44 Gm Oint...g. 1 Sang TP BID Reported Ondansetron Hcl 4 Mg Tablet 4 Mg PO PRN Q6HRS PRN Lorazepam 0.5 Mg Tablet 0.5 Mg PO Q6HRS PRN Vitals/I & O Vital Sign - Last 24 Hours 12/22/19 12/22/19 12/22/19 12/22/19 12:51 12:51 13:20 15:00 Temp 98.4 98.4 Pulse 79 89 Resp 16 16 17 B/P (MAP) 164/89 129/76 (93) Pulse Ox 99 O2 Delivery Room Air Room Air Room Air 12/22/19 12/22/19 12/22/19 12/22/19 16:59 17:30 19:00 20:05 Temp 98.8 98.8 Pulse 90 Resp 16 16 20 B/P (MAP) 125/74 (91) Pulse Ox 98 O2 Delivery Room Air Room Air Room Air Room Air 12/22/19 12/22/19 12/23/19 12/23/19 22:00 23:00 01:44 02:14 Temp 98.8 98.8 Pulse 92 Resp 18 B/P (MAP) 135/53 (80) Pulse Ox 98 98 98 98 O2 Delivery Room Air Room Air Room Air Room Air 12/23/19 12/23/19 12/23/19 03:30 06:39 08:15 Temp 98.9 98.2 98.9 98.2 Pulse 100 93 Resp 16 16 B/P (MAP) 143/76 (98) 108/65 (79) Pulse Ox 99 96 O2 Delivery Room Air Room Air Room Air Intake and Output 12/22/19 12/22/19 12/23/19 15:00 23:00 07:00 Intake Total 50 ml 250 ml Balance 50 ml 250 ml Justicifation of Admission Dx: Justifications for Admission: Justification of Admission Dx: Yes Nutrition Consultation Dietary Evaluation: Recommendations by RD: Dietary education by RD, PPN/TPN Comments: REC continue home TPN and diet as tolerated Expected Outcomes/Goals: to meet >75% est nutr needs- goal ongoing Malnutrition Findings: Muscle Mass (Severe): Severe Depletion Body Fat Depletion (Non Severe: Mod to Severe Weight Status: Underweight BENITA LUTZ MD Dec 23, 2019 11:07
--- NOTE | 2019-12-23 14:08 | PDOC ---
SURGICAL PROGRESS NOTE Subjective Pt reports doing well and ready for d/c Vital Signs Vital Signs Date Time Temp Pulse Resp B/P (MAP) Pulse Ox O2 Delivery O2 Flow Rate FiO2 12/23/19 12:12 16 Room Air 12/23/19 11:00 98.6 88 124/77 (93) 98 98.6 I&O Intake and Output 12/23/19 06:59 Intake Total 300 ml Balance 300 ml Intake Oral 300 ml # Voids 3 # Bowel Movements 1 General: Alert, Oriented X3, Cooperative, No acute distress Abdomen: Soft, No tenderness, Other (draining EC fistula) Labs Laboratory Tests Test 12/22/19 04:23 White Blood Count 4.5 x10^3/uL (4.0-11.0) Red Blood Count 2.89 x10^6/uL (3.50-5.40) Hemoglobin 8.5 g/dL (12.0-15.5) Hematocrit 25.4 % (36.0-47.0) Mean Corpuscular Volume 88 fL (79-100) Mean Corpuscular Hemoglobin 29 pg (25-35) Mean Corpuscular Hemoglobin Concent 33 g/dL (31-37) Red Cell Distribution Width 17.9 % (11.5-14.5) Platelet Count 589 x10^3/uL (140-400) Neutrophils (%) (Auto) 53 % (31-73) Lymphocytes (%) (Auto) 31 % (24-48) Monocytes (%) (Auto) 6 % (0-9) Eosinophils (%) (Auto) 8 % (0-3) Basophils (%) (Auto) 2 % (0-3) Neutrophils # (Auto) 2.3 x10^3/uL (1.8-7.7) Lymphocytes # (Auto) 1.4 x10^3/uL (1.0-4.8) Monocytes # (Auto) 0.3 x10^3/uL (0.0-1.1) Eosinophils # (Auto) 0.4 x10^3/uL (0.0-0.7) Basophils # (Auto) 0.1 x10^3/uL (0.0-0.2) Sodium Level 136 mmol/L (136-145) Potassium Level 4.8 mmol/L (3.5-5.1) Chloride Level 101 mmol/L (98-107) Carbon Dioxide Level 31 mmol/L (21-32) Anion Gap 4 (6-14) Blood Urea Nitrogen 17 mg/dL (7-20) Creatinine 0.6 mg/dL (0.6-1.0) Estimated GFR (Cockcroft-Gault) 121.8 Glucose Level 88 mg/dL (70-99) Calcium Level 8.9 mg/dL (8.5-10.1) Magnesium Level 2.0 mg/dL (1.8-2.4) Problem List EC fistula working on d/c cont wound care Justicifation of Admission Dx: Justifications for Admission: Justification of Admission Dx: Yes HUAN AU MD Dec 23, 2019 14:08
[2019-12-23 15:00] VITALS: BP 120/73
== END 2019-12-23 16:25 | disposition home health service (06) | DRG 698 ==
LOC: ER 17:34 → 6 SOUTH 20:15
PROVIDERS: ADMIT Internal Medicine; ATTEND Internal Medicine
DX: N32.1 Vesicointestinal fistula (principal); E43 Unspecified severe protein-calorie malnutrition; L03.311 Cellulitis of abdominal wall; K63.2 Fistula of intestine; Z16.24 Resistance to multiple antibiotics; L02.211 Cutaneous abscess of abdominal wall; D63.8 Anemia in other chronic diseases classified elsewhere; E03.9 Hypothyroidism, unspecified; G89.29 Other chronic pain; I10 Essential (primary) hypertension; Z82.49 Family history of ischemic heart disease and other diseases of the circulatory system; Z82.5 Family history of asthma and other chronic lower respiratory diseases; Z85.41 Personal history of malignant neoplasm of cervix uteri; Z86.14 Personal history of Methicillin resistant Staphylococcus aureus infection; Z86.19 Personal history of other infectious and parasitic diseases; Z86.718 Personal history of other venous thrombosis and embolism; Z87.11 Personal history of peptic ulcer disease; Z87.19 Personal history of other diseases of the digestive system; Z88.1 Allergy status to other antibiotic agents; Z90.710 Acquired absence of both cervix and uterus; E83.42 Hypomagnesemia; F32.9 Major depressive disorder, single episode, unspecified; F41.9 Anxiety disorder, unspecified; K21.9 Gastro-esophageal reflux disease without esophagitis; K58.9 Irritable bowel syndrome, unspecified; M19.90 Unspecified osteoarthritis, unspecified site; Z88.5 Allergy status to narcotic agent; Z88.8 Allergy status to other drugs, medicaments and biological substances; K57.90 Diverticulosis of intestine, part unspecified, without perforation or abscess without bleeding; Z68.20 Body mass index [BMI] 20.0-20.9, adult
CPT/HCPCS: 36415; 71045; 74176; 76705; 80048; 80053; 83605; 83735; 84100; 84478; 85025; 87040; 87071; 87075; 93005; 96361; 96365; 96368; 96375; J0610; J1170; J2020; J2405; J2543; J2997; J3475; J3480; J3490; J7030; J7042; 97530-GO; 97530-GP; 97535-GO; 99285-25; G0378

== ENCOUNTER 2020-01-26 16:57 | Inpatient (IN) | payer MEDICARE ==
[~2020-01-26] VITALS: Ht 162.6 cm; Wt 43.5 kg
[2020-01-26] MEDS ORDERED: IV NORMAL SALINE 1000ML BAG 1,000 ML IV ONE ×2 (17:45→18:30)
[2020-01-26] MEDS ORDERED: cefTRIAXone IV Push 1 GM VIAL. IVP ONE (17:45)
[2020-01-26] MEDS ORDERED: MORPHINE SULFATE 2 MG/ML VIAL. IV ONE (18:15)
[2020-01-26] MEDS ORDERED: ONDANSETRON PF 4 MG/2 ML VIAL. IVP ONE ×2 (18:15→18:30)
[2020-01-26 18:16] LABS: BASO # 0.1 x10^3/uL (0.0-0.2); BASO % 1 % (0-3); EOS # 0.2 x10^3/uL (0.0-0.7); EOS % 2 % (0-3); HEMATOCRIT 35.3 % (36.0-47.0); LYMPH # 0.9 x10^3/uL (1.0-4.8); LYMPH % 9 % (24-48); MEAN CORPUSCULAR HEMOGLOBIN 29 pg (25-35); MEAN CORPUSCULAR HGB CONC 34 g/dL (31-37); MEAN CORPUSCULAR VOLUME 84 fL (79-100); MONO # 1.1 x10^3/uL (0.0-1.1); MONO % 10 % (0-9); NEUT # 8.5 x10^3/uL (1.8-7.7); NEUT % 79 % (31-73); PLATELET COUNT 614 x10^3/uL (140-400); RED BLOOD COUNT 4.19 x10^6/uL (3.50-5.40); RED CELL DISTRIBUTION WIDTH 17.7 % (11.5-14.5); WHITE BLOOD COUNT 10.8 x10^3/uL (4.0-11.0)
[2020-01-26] MEDS ORDERED: HYDROmorphone 2 MG/ML VIAL IV ONE (18:30)
[2020-01-26 18:36] LABS: ALBUMIN 2.4 g/dL (3.4-5.0); ALBUMIN/GLOBULIN RATIO 0.3 (1.0-1.7); CALCIUM 9.8 mg/dL (8.5-10.1); GFR 30.4; POTASSIUM 4.7 mmol/L (3.5-5.1); TOTAL BILIRUBIN 0.5 mg/dL (0.2-1.0); TOTAL PROTEIN 9.6 g/dL (6.4-8.2)
--- NOTE | 2020-01-26 18:37 | PHYS DOC ---
Past Medical History Past Medical History: Anxiety, Cancer, Diverticulitis, DVT, Hypertension, UTI, Other Additional Past Medical Histor: abd pain,septicemia,Vesicoenteric fistula,cervical CA,blood clot in [place] Past Surgical History: Hysterectomy, Other Additional Past Surgical Histo: bowel resection,ab fistula,BILAT HIP Smoking Status: Never Smoker Alcohol Use: None Drug Use: None General Adult EDM: Chief Complaint: NAUSEA/VOMITING/DIARRHA HPI: HPI: Patient is a 64 year old female who presents with complaints of nausea vomiting and chronic abdominal pain. Patient has a history of cutaneous fistulas that have been attempted to be repaired without success. 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 There is no additional breakdown. The patient reports pain around the area of t he fistula which she says is constant, nonradiating and unrelenting. Patient describes it as sharp and aching. Patient stated a temperature of 100.4 at home. Patient reported occasional cough denied any shortness of breath or chest pain, reported diminished urinary output but has been able to take some p.o. Patient apparently is on TPN at home. Patient otherwise is an unreliable historian and is unable to give much of a history. I redid a chart review. Review of Systems: Review of Systems: Constitutional: See HPI [] Eyes: Denies change in visual acuity. [] HENT: Denies nasal congestion or sore throat. [] Respiratory: See HPI [] Cardiovascular: Denies chest pain or edema. [] GI: See HPI. [] : Denies dysuria. [] Musculoskeletal: Denies back pain or joint pain. [] Integument: Denies rash. [] Neurologic: Denies headache, focal weakness or sensory changes. [] Endocrine: Denies polyuria or polydipsia. [] Lymphatic: Denies swollen glands. [] Psychiatric: Admits to depression, no SI or HI. [] Heart Score: Risk Factors: Risk Factors: DM, Current or recent (<one month) smoker, HTN, HLP, family history of CAD, obesity. Risk Scores: Score 0 - 3: 2.5% MACE over next 6 weeks - Discharge Home Score 4 - 6: 20.3% MACE over next 6 weeks - Admit for Clinical Observation Score 7 - 10: 72.7% MACE over next 6 weeks - Early Invasive Strategies Current Medications: Current Medications Medications (Trade) Dose Ordered Sig/Alex Start Time Stop Time Status Last Admin Dose Admin Ceftriaxone Sodium (Rocephin) 1 gm 1X ONCE 01/26/20 17:45 01/26/20 17:47 DC Morphine Sulfate (Morphine Sulfate) 2 mg 1X ONCE 01/26/20 18:15 01/26/20 18:16 DC Ondansetron HCl (Zofran) 4 mg 1X ONCE 01/26/20 18:15 01/26/20 18:16 DC Sodium Chloride 1,000 ml @ 1,000 mls/hr 1X ONCE 01/26/20 17:45 01/26/20 18:44 Allergies: Allergies: Allergies Coded Allergies Type Severity Reaction Last Updated Verified Iodinated Contrast Media Allergy Severe Anaphylaxis 11/08/19 Yes vancomycin Allergy Severe Swelling 11/08/19 Yes adhesive tape Allergy Intermediate Rash 11/08/19 Yes silver Allergy Intermediate Rash, Tegaderm film, can have on abd but no where else 11/08/19 Yes codeine Adverse Reaction Severe Nausea and Vomiting 11/08/19 Yes Physical Exam: PE: Constitutional: Well developed, cachectic, no acute distress, non-toxic appearance. [] HENT: Normocephalic, atraumatic, bilateral external ears normal, oropharynx dry, no oral exudates, nose normal. [] Eyes: PERRLA, EOMI, conjunctiva normal, no discharge. [] Neck: Normal range of motion, no tenderness, supple, no stridor. No JVD, no stridor [] Cardiovascular: Tachycardic, regular, grade 2/6 systolic murmur, nonpalpable distal pulses [] Lungs & Thorax: Bilateral breath sounds clear to auscultation [] Abdomen: Soft, tenderness around the fistula with what looks like skin breakdown of stage I time. No masses, voluntary guarding, no rebound. [] Skin: Warm, dry, no erythema, no rash. [] Back: No tenderness, no CVA tenderness. [] Extremities: No tenderness, no cyanosis, positive clubbing mild, ROM intact, no edema. [] Neurologic: Alert and oriented X 3, moves all extremities, neuro exam difficult to perform secondary to patient's cooperation. [] Psychologic: Affect normal, judgement normal, mood normal. [] Current Patient Data: Labs: Laboratory Tests Test 01/26/20 18:00 White Blood Count 10.8 x10^3/uL (4.0-11.0) Red Blood Count 4.19 x10^6/uL (3.50-5.40) Hemoglobin 12.0 g/dL (12.0-15.5) Hematocrit 35.3 % (36.0-47.0) L Mean Corpuscular Volume 84 fL (79-100) Mean Corpuscular Hemoglobin 29 pg (25-35) Mean Corpuscular Hemoglobin Concent 34 g/dL (31-37) Red Cell Distribution Width 17.7 % (11.5-14.5) H Platelet Count 614 x10^3/uL (140-400) H Neutrophils (%) (Auto) 79 % (31-73) H Lymphocytes (%) (Auto) 9 % (24-48) L Monocytes (%) (Auto) 10 % (0-9) H Eosinophils (%) (Auto) 2 % (0-3) Basophils (%) (Auto) 1 % (0-3) Neutrophils # (Auto) 8.5 x10^3/uL (1.8-7.7) H Lymphocytes # (Auto) 0.9 x10^3/uL (1.0-4.8) L Monocytes # (Auto) 1.1 x10^3/uL (0.0-1.1) Eosinophils # (Auto) 0.2 x10^3/uL (0.0-0.7) Basophils # (Auto) 0.1 x10^3/uL (0.0-0.2) Laboratory Tests 01/26/20 18:00 Vital Signs: Vital Signs Date Time Temp Pulse Resp B/P (MAP) Pulse Ox O2 Delivery O2 Flow Rate FiO2 01/26/20 17:00 99.3 119 18 113/75 (88) 99 Room Air 99.3 EKG: EKG: [] Radiology/Procedures: Radiology/Procedures: [] Course & Med Decision Making: Course & Med Decision Making Pertinent Labs and Imaging studies reviewed. (See chart for details) [] Dragon Disclaimer: Dragon Disclaimer: This electronic medical record was generated, in whole or in part, using a voice recognition dictation system. Departure Departure Referrals: BENITA LUTZ MD (PCP) Justicifation of Admission Dx: Justifications for Admission: Justification of Admission Dx: Yes RENETTA DENIS MD Jan 26, 2020 18:37
--- NOTE | 2020-01-26 19:15 | RAD ---
Exam: Acute abdominal series INDICATION: Fever TECHNIQUE: Frontal view of the chest with upright and supine views of the abdomen Comparisons: 12/17/2019 FINDINGS: Right central venous catheter with tip at the atrial caval junction. The cardiomediastinal silhouette and pulmonary vessels are within normal limits. The lung and pleural spaces are clear. Air and stool noted throughout the colon to level the rectum in a nonobstructive bowel gas pattern. Surgical sutures are noted within the right hemiabdomen. No suspicious osseous lesions or acute fractures. Numerous surgical clips noted in the pelvis. IMPRESSION: 1. No acute cardiopulmonary process. 2. Nonobstructive bowel gas pattern. Electronically signed by: Abdoul Puentes MD (01/26/2020 7:12 PM) [id number]
[2020-01-26] MEDS ORDERED: IV NORMAL SALINE 1000ML BAG 1,000 ML IV SCH (21:53)
[2020-01-26] MEDS ORDERED: ONDANSETRON PF 4 MG/2 ML VIAL. IV PRN (22:00)
[2020-01-26 23:43] VITALS: BP 124/77
[2020-01-27] MEDS: MORPHINE SULFATE 4 MG/ML VIAL. IV PRN ×4 (00:04→09:27)
[2020-01-27 03:00] VITALS: BP 112/73
[2020-01-27 07:00] VITALS: BP 127/74
[2020-01-27] MEDS: ONDANSETRON PF 4 MG/2 ML VIAL. IVP PRN ×3 (09:30→22:05)
[2020-01-27 11:00] VITALS: BP 110/74
[2020-01-27] MEDS ORDERED: CA C1TAB58 PO ×2 (11:03→11:06)
[2020-01-27] MEDS ORDERED: LYSI500T8 PO (11:07)
[2020-01-27] MEDS ORDERED: ACETAMINOPHEN 325 MG TABLET. PO PRN (11:45)
[2020-01-27] MEDS ORDERED: IV NORMAL SALINE 1000ML BAG 1,000 ML IV SCH (11:45)
--- NOTE | 2020-01-27 12:03 | PDOC ---
Provider Note Provider Note history and physical dictated # [id number] Justicifation of Admission Dx: Justifications for Admission: Justification of Admission Dx: Yes BENITA LUTZ MD Jan 27, 2020 12:03
--- NOTE | 2020-01-27 12:32 | HP ---
ADMIT DATE: 01/27/2020 LOCATION: She is in room 434. HISTORY OF PRESENT ILLNESS: The patient is a 64-year-old -[place] female with history of enterocutaneous fistula, maintained on home total parenteral nutrition, who has an enterovesical fistula, chronic abdominal pain due to adhesions with previous surgical procedures to repair her enterocutaneous fistula, all failed with mesh in place, admitted to [facility] through the Emergency Room on 01/26/2020 with a 2-day history of nausea and vomiting. She has chronic abdominal pain due to adhesions. She had a BUN of 45 as an outpatient as her labs were checked weekly and IV normal saline at 40 mL an hour for 3 days was ordered, but apparently not done and she does get continuous TPN at home. She was sent to the [facility] Emergency Room because of the nausea and vomiting and her BUN was 70, creatinine 2.0 consistent with acute kidney injury from nausea, vomiting and dehydration. She had an acute abdominal examination and it was negative for obstruction. She was therefore admitted to [facility] for acute kidney injury and IV fluids and also treatment of her nausea and vomiting. Her nausea and vomiting did not recur last night after admission. ALLERGIES AND INTOLERANCES: IV IODINE, ADHESIVE TAPE, CODEINE, SILVER, AND VANCOMYCIN. MEDICATIONS: Include Ambien 5 mg at bedtime p.r.n., Zofran 4 mg p.o. every 6 hours p.r.n., Tylenol 650 mg p.o. every 6 hours p.r.n., sertraline 50 mg every day, Protonix 40 mg every day, lorazepam 0.5 mg p.o. every 6 hours p.r.n. for anxiety. She has lidocaine ointment applied followed by zinc oxide 20% ointment applied b.i.d. to the excoriated areas of the abdomen. She is on Dilaudid 2 mg p.o. q.i.d. p.r.n. and TPN at 80 mL an hour continuously at home. PAST MEDICAL HISTORY: Significant for the enterocutaneous fistula and she had about 5 abdominal procedures to repair it, all failed with mesh in place. She has chronic abdominal pain due to abdominal adhesions from her previous surgery. She had an abdominal wall abscess within the last year that was treated. She had a percutaneous drain and eventually was removed. She also has history of severe protein-calorie malnutrition, anemia of chronic disease. She also has a history of hypertension, but currently off of blood pressure medication. She has a PICC line for TPN, it is only the site that she has left. She had an appendectomy, cholecystectomy, tonsillectomy, hysterectomy, history of depression, previous history of diverticulitis, erosive esophagitis, Judi esophagitis in the past. She has had recurrent bacteremia and sepsis many times related to her PICC line. She has a history of a deep vein thrombosis in the left arm due to PICC line in 2010 and previous history of Clostridium difficile colitis. SOCIAL HISTORY: She does not drink alcohol nor does she smoke cigarettes. FAMILY HISTORY: Noncontributory. REVIEW OF SYSTEMS: GENERAL: She had a temperature of 100.4 yesterday. CARDIOVASCULAR: No chest pain. PULMONARY: No cough or shortness of breath. GASTROINTESTINAL: She has some chronic abdominal pain and nausea and vomiting. ENDOCRINE: No diabetes mellitus. SKIN: She has got chronic excoriation of the abdominal wall due to the enterocutaneous fistula contents. The rest of review of systems is negative except as stated in history of present illness. PHYSICAL EXAMINATION: VITAL SIGNS: Temperature is 97.7 degrees, apical pulse 105, respiratory rate 18, blood pressure 110/74, oxygen saturation 98% on room air. HEENT: Eyes: Gaze is conjugate. Mouth: Tongue is midline. NECK: There is no cervical lymphadenopathy. HEART: Reveals an S1, S2. There is no S3 or murmur. LUNGS: Clear. ABDOMEN: Soft. She had enterocutaneous fistula. She has got a PICC line also in the right anterior chest near her clavicle. EXTREMITIES: Lower extremities without edema. Dorsalis pedis pulses 2+. SKIN: No rashes. NEUROLOGIC: Revealed no focal weakness of extremities or facial asymmetry. LABORATORY DATA: Review of her labs, white count is 10.8, hemoglobin 12.0, platelet count 614,000, 79 polys and 9 lymphocytes. Sodium 136, potassium 4.7, chloride 99, total CO2 is 25 with a BUN of 70, creatinine 2.0, blood sugar is 129. Lactic acid level 1.6. SGOT, SGPT, bilirubin were normal. Alkaline phosphatase 153, albumin was 2.4, total protein was 9.6. I could not see an EKG, but she had an acute abdominal series, which showed no acute cardiopulmonary process and no evidence of obstruction. The lungs were clear. She had stool noted throughout her colon. ASSESSMENT: 1. Acute kidney injury secondary to dehydration, nausea and vomiting. 2. Nausea and vomiting. 3. Enterocutaneous fistula. 4. Enterovesical fistula. 5. Chronic abdominal pain due to adhesions. 6. Severe protein-calorie malnutrition. PLAN: At this time, I spoke with the pharmacist and we will get her TPN that she had last time ordered at 80 mL an hour and in the meantime, I will give her IV normal saline at 125 mL an hour. Once the TPN is started, the TPN will be at 80 mL an hour and IV normal saline will be at 45 mL an hour for a total of 125 mL an hour. I spoke with the pharmacist about that. We will also order Zofran 4 mg IV every 6 hours p.r.n. for nausea and vomiting and we will also continue with her p.r.n. IV Dilaudid and home medications. We will recheck her labs tomorrow. BENITA LUTZ MD DR: NABILA/jd JOB#: [id number] / [id number]
[2020-01-27] MEDS: HYDROmorphone 2 MG/ML VIAL IVP PRN ×3 (12:54→22:06)
[2020-01-27] MEDS: ZINC OXIDE 20% TOPICAL OINTMENT 28GM TUBE. TP SCH ×2 (12:59→22:12)
[2020-01-27] MEDS: PANTOPRAZOLE 40 MG TABLET.DR. PO SCH (13:00)
[2020-01-27] MEDS: SERTRALINE 50 MG TABLET. PO SCH (13:00)
[2020-01-27] MEDS: LIDOCAINE 2% TOPICAL JELLY 30GM TUBE. TP SCH ×2 (13:00→22:12)
[2020-01-27] MEDS: TPN PER PHARMACY MC PRN (13:22)
--- NOTE | 2020-01-27 13:25 | NUR ---
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 TPN started 01/27/20 B:Pertinent PMH: assisted tpn Height: 5 feet, 4 inches Weight: 37.4 kg Current diet: LABS: Sodium: 136 Potassium: 4.7 Chloride: 99 Calcium: 9.8 Corrected Calcium: 11.08 Magnesium: CO2: 25 SCr: 2.0 Glucose: 129 Albumin: 2.4 AST: 9 ALT: 153 TPN FORMULA: TPN TYPE: Central Continuous AMINO ACIDS: 90 gm DEXTROSE: 285 gm LIPIDS: 35 gm SODIUM CHLORIDE: 120 mEq SODIUM ACETATE: 120 mEq SODIUM PHOSPHATE: mmol POTASSIUM CHLORIDE: 30 mEq POTASSIUM ACETATE: mEq POTASSIUM PHOSPHATE: 22 mmol MAGNESIUM: 24 mEq CALCIUM: 10 mEq INSULIN: units MULTIPLE VITAMIN: 10 ml TRACE ELEMENTS: 1 ml(s) TPN PLAN: restart same tpn from last admission per Dr Cisneros. lab tomorrow. R: Begin TPN AT 80 ML/HR Will monitor electrolytes, glucose, and tolerance to TPN. MARQUEZ FIGUEROA [facility], 01/27/20 [id number]
--- NOTE | 2020-01-27 14:47 | EKG ---
[address] [place] [id number] Test Date: 2020-01-27 Test Time: 14:42:59 Pat Name: HERMAN MONCADA Department: Room: 434 1 Gender: F [employer] [address] Shift: : 1955 Requested By: BENITA LUTZ Order Number: [id number] Reading MD: Measurements Intervals Guys Rate: 100 P: 31 NC: 118 QRS: 63 QRSD: 70 T: 66 QT: 328 QTc: 426 Interpretive Statements SINUS RHYTHM NO SPECIFIC ECG ABNORMALITIES RI6.02 Compared to ECG 12/17/2019 13:24:11 No significant changes
[2020-01-27 15:00] VITALS: BP 119/82
[2020-01-27 19:00] VITALS: BP 124/73
[2020-01-27] MEDS ORDERED: AMINO ACID IV SCH (22:00)
[2020-01-27] MEDS ORDERED: TOTAL PARENTERAL NUTRITION IV SCH (22:00)
[2020-01-27] MEDS ORDERED: [UNRECOGNIZED DRUG - OTHER] IV SCH (22:00)
[2020-01-27] MEDS ORDERED: DEXTROSE 70% IV SCH (22:00)
[2020-01-27] MEDS: LORazepam 0.5 MG TABLET PO PRN (22:06)
[2020-01-27 23:00] VITALS: BP 123/83
[2020-01-28] MEDS: IV NORMAL SALINE 1000ML BAG 1,000 ML IV SCH ×2 (01:27→20:14)
[2020-01-28] MEDS: HYDROmorphone 2 MG/ML VIAL IVP PRN ×5 (02:11→21:34)
[2020-01-28 02:39] VITALS: BP 116/56
[2020-01-28 06:46] LABS: BASO # 0.1 x10^3/uL (0.0-0.2); BASO % 1 % (0-3); EOS # 0.2 x10^3/uL (0.0-0.7); EOS % 3 % (0-3); HEMATOCRIT 30.6 % (36.0-47.0); HEMOGLOBIN 9.8 g/dL (12.0-15.5); LYMPH # 0.9 x10^3/uL (1.0-4.8); LYMPH % 12 % (24-48); MEAN CORPUSCULAR HEMOGLOBIN 28 pg (25-35); MEAN CORPUSCULAR HGB CONC 32 g/dL (31-37); MEAN CORPUSCULAR VOLUME 86 fL (79-100); MONO # 0.7 x10^3/uL (0.0-1.1); MONO % 10 % (0-9); NEUT # 5.3 x10^3/uL (1.8-7.7); NEUT % 74 % (31-73); PLATELET COUNT 450 x10^3/uL (140-400); RED BLOOD COUNT 3.56 x10^6/uL (3.50-5.40); RED CELL DISTRIBUTION WIDTH 17.7 % (11.5-14.5); WHITE BLOOD COUNT 7.2 x10^3/uL (4.0-11.0)
[2020-01-28 07:00] VITALS: BP 136/87
[2020-01-28 07:01] LABS: CALCIUM 8.8 mg/dL (8.5-10.1); CREATININE 0.9 mg/dL (0.6-1.0); GFR 76.3; POTASSIUM 3.7 mmol/L (3.5-5.1)
--- NOTE | 2020-01-28 09:31 | RAD ---
CT abdomen and pelvis without contrast: Reason for examination: Abdominal pain and vomiting. Enterocutaneous fistula. Comparison is made to previous studies dated 12/17/2019 and 11/28/2019. Helical images were obtained through the abdomen pelvis with no intravenous or oral contrast administered. Reconstruction was performed in sagittal and coronal planes. Examination is limited by lack of intra-abdominal fat and no oral or intravenous contrast. Exposure: One or more of the following individualized dose reduction techniques were utilized for this examination: 1. Automated exposure control 2. Adjustment of the mA and/or kV according to patient size 3. Use of iterative reconstruction technique. Lung oconnor show some mild hazy infiltrates in the right lower lobe peripherally. The heart size is normal with no pericardial effusion. No focal abnormality seen at the liver, spleen, adrenal glands or pancreas. The abdominal aorta contains calcification. No abnormality seen at the inferior vena cava. The kidneys show no renal masses, renal calculi or hydronephrosis. There continue to be postop changes with multiple suture lines present in the midabdomen extending into the right lower quadrant. There appears to be an abnormal fluid collection with air-fluid levels extending from the abdominal wall just above the umbilicus into the right midabdomen. This however is difficult to separate from the nonopacified bowel. There does not appear to be bowel obstruction. There is moderate amount of fecal material present in the distal colon. No abnormality seen at the bladder no free air is seen in the abdomen. There continues be some mild edema in the soft tissues which appears to be slightly improved. There are postop changes at the hips. No acute bony abnormalities are seen. IMPRESSION: Mild focal hazy infiltrates in the right lower lobe. Postop changes with multiple suture lines in the mid abdomen with fluid collections still seen anteriorly. Evaluation however is limited by lack of intra-abdominal fat and contrast in the intestine. Size and extent of the fluid collection cannot be ascertained. No apparent bowel obstruction with large amount of fecal material in the distal colon. Continued presence of soft tissue edema but with some improvement since previous exam. Electronically signed by: Jennifer Lin MD (01/28/2020 9:28 AM) [facility]
[2020-01-28] MEDS: SERTRALINE 50 MG TABLET. PO SCH (09:49)
[2020-01-28] MEDS: LIDOCAINE 2% TOPICAL JELLY 30GM TUBE. TP SCH ×2 (09:49→21:34)
[2020-01-28] MEDS: PANTOPRAZOLE 40 MG TABLET.DR. PO SCH (09:49)
[2020-01-28] MEDS: LORazepam 0.5 MG TABLET PO PRN (09:49)
[2020-01-28] MEDS: ZINC OXIDE 20% TOPICAL OINTMENT 28GM TUBE. TP SCH ×2 (09:50→21:34)
[2020-01-28 11:00] VITALS: BP 139/83
--- NOTE | 2020-01-28 11:48 | PDOC ---
PROGRESS NOTES Date of Service DATE: 01/28/20 TIME: 11:40 Subjective Subjective feels better. no nausea or vomiting. lab better. Objective Objective Vital Signs Date Time Temp Pulse Resp B/P (MAP) Pulse Ox O2 Delivery O2 Flow Rate FiO2 01/28/20 11:00 98.0 108 18 139/83 (101) 99 Room Air 98.0 Intake and Output 01/28/20 07:00 Intake Total 1934 ml Output Total 0 ml Balance 1934 ml Intake Blood Product IV Normal Saline Flush 1934 ml Output Urine Total 0 ml # Voids 2 Physical Exam Abdomen: Soft, Other (EC fistula) Heart: Regular rate, Normal S1, Normal S2 Extremities: No edema General: Alert HEENT: Atraumatic Lungs: Clear to auscultation Neuro: Normal speech Psych/Mental Status: Mental status NL Skin: No rashes Assessment Assessment Problems1. Acute kidney injury secondary to dehydration, nausea and vomiting. improved with iv hydration 2. Nausea and vomiting. resolved 3. Enterocutaneous fistula. 4. Enterovesical fistula. 5. Chronic abdominal pain due to adhesions. 6. Severe protein-calorie malnutrition. Medical Problems: (1) Abdominal wall fistula Status: Acute Plan Plan of Care increase kcl in TPN. spoke with pharmacist lab tomorrow continue TPN and iv fluids Iv zofran prn iv dilaudid prn Comment Review of Relevant I have reviewed the following items lucila (where applicable) has been applied. Labs Laboratory Tests Test 01/26/20 18:00 01/28/20 06:40 White Blood Count 10.8 x10^3/uL (4.0-11.0) 7.2 x10^3/uL (4.0-11.0) Red Blood Count 4.19 x10^6/uL (3.50-5.40) 3.56 x10^6/uL (3.50-5.40) Hemoglobin 12.0 g/dL (12.0-15.5) 9.8 g/dL (12.0-15.5) Hematocrit 35.3 % (36.0-47.0) 30.6 % (36.0-47.0) Mean Corpuscular Volume 84 fL (79-100) 86 fL (79-100) Mean Corpuscular Hemoglobin 29 pg (25-35) 28 pg (25-35) Mean Corpuscular Hemoglobin Concent 34 g/dL (31-37) 32 g/dL (31-37) Red Cell Distribution Width 17.7 % (11.5-14.5) 17.7 % (11.5-14.5) Platelet Count 614 x10^3/uL (140-400) 450 x10^3/uL (140-400) Neutrophils (%) (Auto) 79 % (31-73) 74 % (31-73) Lymphocytes (%) (Auto) 9 % (24-48) 12 % (24-48) Monocytes (%) (Auto) 10 % (0-9) 10 % (0-9) Eosinophils (%) (Auto) 2 % (0-3) 3 % (0-3) Basophils (%) (Auto) 1 % (0-3) 1 % (0-3) Neutrophils # (Auto) 8.5 x10^3/uL (1.8-7.7) 5.3 x10^3/uL (1.8-7.7) Lymphocytes # (Auto) 0.9 x10^3/uL (1.0-4.8) 0.9 x10^3/uL (1.0-4.8) Monocytes # (Auto) 1.1 x10^3/uL (0.0-1.1) 0.7 x10^3/uL (0.0-1.1) Eosinophils # (Auto) 0.2 x10^3/uL (0.0-0.7) 0.2 x10^3/uL (0.0-0.7) Basophils # (Auto) 0.1 x10^3/uL (0.0-0.2) 0.1 x10^3/uL (0.0-0.2) Sodium Level 136 mmol/L (136-145) 143 mmol/L (136-145) Potassium Level 4.7 mmol/L (3.5-5.1) 3.7 mmol/L (3.5-5.1) Chloride Level 99 mmol/L (98-107) 109 mmol/L (98-107) Carbon Dioxide Level 25 mmol/L (21-32) 24 mmol/L (21-32) Anion Gap 12 (6-14) 10 (6-14) Blood Urea Nitrogen 70 mg/dL (7-20) 41 mg/dL (7-20) Creatinine 2.0 mg/dL (0.6-1.0) 0.9 mg/dL (0.6-1.0) Estimated GFR (Cockcroft-Gault) 30.4 76.3 BUN/Creatinine Ratio 35 (6-20) Glucose Level 129 mg/dL (70-99) 150 mg/dL (70-99) Lactic Acid Level 1.6 mmol/L (0.4-2.0) Calcium Level 9.8 mg/dL (8.5-10.1) 8.8 mg/dL (8.5-10.1) Total Bilirubin 0.5 mg/dL (0.2-1.0) Aspartate Amino Transf (AST/SGOT) 9 U/L (15-37) Alanine Aminotransferase (ALT/SGPT) 7 U/L (14-59) Alkaline Phosphatase 153 U/L (46-116) Total Protein 9.6 g/dL (6.4-8.2) Albumin 2.4 g/dL (3.4-5.0) Albumin/Globulin Ratio 0.3 (1.0-1.7) Magnesium Level 2.0 mg/dL (1.8-2.4) Laboratory Tests Test 01/28/20 06:40 White Blood Count 7.2 x10^3/uL (4.0-11.0) Red Blood Count 3.56 x10^6/uL (3.50-5.40) Hemoglobin 9.8 g/dL (12.0-15.5) Hematocrit 30.6 % (36.0-47.0) Mean Corpuscular Volume 86 fL (79-100) Mean Corpuscular Hemoglobin 28 pg (25-35) Mean Corpuscular Hemoglobin Concent 32 g/dL (31-37) Red Cell Distribution Width 17.7 % (11.5-14.5) Platelet Count 450 x10^3/uL (140-400) Neutrophils (%) (Auto) 74 % (31-73) Lymphocytes (%) (Auto) 12 % (24-48) Monocytes (%) (Auto) 10 % (0-9) Eosinophils (%) (Auto) 3 % (0-3) Basophils (%) (Auto) 1 % (0-3) Neutrophils # (Auto) 5.3 x10^3/uL (1.8-7.7) Lymphocytes # (Auto) 0.9 x10^3/uL (1.0-4.8) Monocytes # (Auto) 0.7 x10^3/uL (0.0-1.1) Eosinophils # (Auto) 0.2 x10^3/uL (0.0-0.7) Basophils # (Auto) 0.1 x10^3/uL (0.0-0.2) Sodium Level 143 mmol/L (136-145) Potassium Level 3.7 mmol/L (3.5-5.1) Chloride Level 109 mmol/L (98-107) Carbon Dioxide Level 24 mmol/L (21-32) Anion Gap 10 (6-14) Blood Urea Nitrogen 41 mg/dL (7-20) Creatinine 0.9 mg/dL (0.6-1.0) Estimated GFR (Cockcroft-Gault) 76.3 Glucose Level 150 mg/dL (70-99) Calcium Level 8.8 mg/dL (8.5-10.1) Magnesium Level 2.0 mg/dL (1.8-2.4) Microbiology 01/26/20 Blood Culture - Preliminary, Resulted NO GROWTH AFTER 1 DAY Medications Current Medications Sodium Chloride 1,000 ml @ 1,000 mls/hr 1X ONCE IV Last administered on 01/26/20at 18:39; Start 01/26/20 at 17:45; Stop 01/26/20 at 18:44; Status DC Ceftriaxone Sodium (Rocephin) 1 gm 1X ONCE IVP Last administered on 01/26/20at 18:39; Start 01/26/20 at 17:45; Stop 01/26/20 at 17:47; Status DC Morphine Sulfate (Morphine Sulfate) 2 mg 1X ONCE IV Last administered on 01/26/20at 18:40; Start 01/26/20 at 18:15; Stop 01/26/20 at 18:16; Status DC Ondansetron HCl (Zofran) 4 mg 1X ONCE IVP Last administered on 01/26/20at 18:39; Start 01/26/20 at 18:15; Stop 01/26/20 at 18:16; Status DC Hydromorphone HCl (Dilaudid) 0.5 mg 1X ONCE IV Last administered on 01/26/20at 19:44; Start 01/26/20 at 18:30; Stop 01/26/20 at 18:36; Status DC Sodium Chloride 1,000 ml @ 1,000 mls/hr 1X ONCE IV ; Start 01/26/20 at 18:30; Stop 01/26/20 at 19:45; Status DC Ondansetron HCl (Zofran) 4 mg 1X ONCE IVP ; Start 01/26/20 at 18:30; Stop 01/26/20 at 19:45; Status DC Ondansetron HCl (Zofran) 4 mg PRN Q8HRS PRN IV NAUSEA/VOMITING 1ST CHOICE Last administered on 01/27/20at 09:27; Start 01/26/20 at 22:00; Stop 01/27/20 at 11:53; Status DC Morphine Sulfate (Morphine Sulfate) 4 mg PRN Q2HR PRN IV SEVERE PAIN 7-10 Last administered on 01/27/20at 09:27; Start 01/26/20 at 22:00; Stop 01/27/20 at 11:53; Status DC Sodium Chloride 1,000 ml @ 75 mls/hr [id number] IV Last administered on 01/26/20at 23:55; Start 01/26/20 at 21:53; Stop 01/27/20 at 11:53; Status DC Sodium Chloride 1,000 ml @ 125 mls/hr Q8H IV Last administered on 01/27/20at 12:55; Start 01/27/20 at 11:45; Stop 01/27/20 at 19:19; Status DC Hydromorphone HCl (Dilaudid) 2 mg PRN Q4HRS PRN IVP PAIN Last administered on 01/28/20at 09:56; Start 01/27/20 at 11:45 Ondansetron HCl (Zofran) 4 mg PRN Q6HRS PRN IVP NAUSEA/VOMITING Last administered on 01/27/20at 22:05; Start 01/27/20 at 11:45 Pantoprazole Sodium (Protonix) 40 mg DAILYAC PO Last administered on 01/28/20at 09:49; Start 01/27/20 at 13:00 Lorazepam (Ativan) 0.5 mg PRN Q6HRS PRN PO ANXIETY / AGITATION Last administered on 01/28/20 09:49; Start 01/27/20 at 11:45 Acetaminophen (Tylenol) 650 mg PRN Q6HRS PRN PO MILD PAIN / TEMP > 100.3'F; Start 01/27/20 at 11:45 Zinc Oxide (Zinc Oxide 20% Topical) 1 sang BID TP Last administered on 01/28/20at 09:50; Start 01/27/20 at 12:30 Zolpidem Tartrate (Ambien) 5 mg PRN QHS PRN PO INSOMNIA; Start 01/27/20 at 11:45 Sertraline HCl (Zoloft) 50 mg DAILY PO Last administered on 01/28/20 09:49; Start 01/27/20 at 13:00 Sodium Chloride 1,000 ml @ 45 mls/hr [id number] IV Last administered on 01/28/20 01:27; Start 01/27/20 at 22:00 Info (Tpn Per Pharmacy) 1 each PRN DAILY PRN MC SEE COMMENTS Last administered on 01/27/20at 13:22; Start 01/27/20 at 12:00 Lidocaine HCl (Xylocaine 2% Topical 30gm Tube) 1 sang BID TP Last administered on 01/28/20at 09:49; Start 01/27/20 at 12:15 Sodium Chloride 120 meq/Sodium Acetate 120 meq/ Potassium Chloride 30 meq/ Potassium Phosphate 22 mmol/ Magnesium Sulfate 24 meq/Calcium Gluconate 10 meq/ Multivitamins 10 ml/Chromium/ Copper/Manganese/ Seleni/Zn 1 ml/ Total Parenteral Nutrition/Amino Acids/Dextrose/ Fat Emulsion Intravenous 1,920 ml @ 80 mls/hr TPN CONT IV Last administered on 01/27/20at 22:21; Start 01/27/20 at 22:00; Stop 01/28/20 at 21:59 Active Scripts Active Amlodipine Besylate 5 Mg Tablet 5 Mg PO DAILY Dilaudid (Hydromorphone Hcl) 2 Mg Tablet 1 Tab PO Q6HRS PRN MDD 4 Tablet(s) Pantoprazole Sodium (Pantoprazole Sodium) 40 Mg Tablet.dr 40 Mg PO DAILYAC Tylenol (Acetaminophen) 325 Mg Tablet 650 Mg PO PRN Q6HRS PRN Zinc Oxide 56.7 Gm Oint...g. 1 Sang TP BID Ambien (Zolpidem Tartrate) 5 Mg Tablet 5 Mg PO PRN QHS PRN 30 Days [Tpn Per Pharmacy] 1 EACH Each 1 Each MC PRN DAILY PRN TPN at 85cc/hour Sertraline Hcl 50 Mg Tablet 50 Mg PO DAILY 30 Days Lidocaine 35.44 Gm Oint...g. 1 Sang TP BID Reported Ondansetron Hcl 4 Mg Tablet 4 Mg PO PRN Q6HRS PRN Lorazepam 0.5 Mg Tablet 0.5 Mg PO Q6HRS PRN Vitals/I & O Vital Sign - Last 24 Hours 01/27/20 01/27/20 01/27/20 01/27/20 12:54 13:24 15:00 17:49 Temp 97.7 97.7 Pulse 106 Resp 20 20 18 20 B/P (MAP) 119/82 (94) Pulse Ox 99 O2 Delivery Room Air Room Air Room Air Room Air 01/27/20 01/27/20 01/27/20 01/27/20 18:19 19:00 20:00 22:06 Temp 97.8 97.8 Pulse 101 Resp 20 18 B/P (MAP) 124/73 (90) Pulse Ox 98 98 O2 Delivery Room Air Room Air Room Air Room Air 01/27/20 01/27/20 01/28/20 01/28/20 22:40 23:00 02:11 02:39 Temp 97.8 98.2 97.8 98.2 Pulse 100 102 Resp 19 20 18 B/P (MAP) 123/83 (96) 116/56 (76) Pulse Ox 100 98 O2 Delivery Room Air Room Air Room Air Room Air 01/28/20 01/28/20 01/28/20 01/28/20 02:45 06:15 06:45 07:00 Temp 97.8 97.8 Pulse 99 Resp 16 16 18 B/P (MAP) 136/87 (103) Pulse Ox 97 O2 Delivery Room Air Room Air Room Air Room Air 01/28/20 01/28/20 09:56 11:00 Temp 98.0 98.0 Pulse 108 Resp 20 18 B/P (MAP) 139/83 (101) Pulse Ox 99 O2 Delivery Room Air Room Air Intake and Output 01/27/20 01/27/20 01/28/20 15:00 23:00 07:00 Intake Total 1934 ml Output Total 0 ml Balance 0 ml 1934 ml Justicifation of Admission Dx: Justifications for Admission: Justification of Admission Dx: Yes BENITA LUTZ MD Jan 28, 2020 11:48
[2020-01-28] MEDS: TPN PER PHARMACY MC PRN (12:33)
--- NOTE | 2020-01-28 12:33 | NUR ---
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 TPN started 01/27/20 B:Pertinent PMH: detention tpn Height: 5 feet, 4 inches Weight: 43.5 kg Current diet: LABS: Sodium: 143 Potassium: 3.7 Chloride: 109 Calcium: 8.8 Corrected Calcium: 10.08 Magnesium: 2.0 CO2: 24 SCr: 0.9 Glucose: 150 Albumin: 2.4 AST: 9 ALT: 153 TPN FORMULA: TPN TYPE: Central Continuous AMINO ACIDS: 90 gm DEXTROSE: 285 gm LIPIDS: 35 gm SODIUM CHLORIDE: 120 mEq SODIUM ACETATE: 120 mEq SODIUM PHOSPHATE: mmol POTASSIUM CHLORIDE: 50 mEq POTASSIUM ACETATE: mEq POTASSIUM PHOSPHATE: 22 mmol MAGNESIUM: 24 mEq CALCIUM: 10 mEq INSULIN: units MULTIPLE VITAMIN: 10 ml TRACE ELEMENTS: 1 ml(s) TPN PLAN: Increase KCl to 50meq per [facility] in the am, phos level added R: Continue TPN as written above. Will monitor electrolytes, glucose, and tolerance to TPN. DIONISIO LOMBARDO [facility], 01/28/20 [id number]
[2020-01-28 15:00] VITALS: BP 131/92
[2020-01-28 19:24] VITALS: BP 127/71
[2020-01-28] MEDS: ZOLPIDEM 5 MG TABLET. PO PRN (21:33)
[2020-01-28] MEDS ORDERED: [UNRECOGNIZED DRUG - OTHER] IV SCH (22:00)
[2020-01-28] MEDS ORDERED: TOTAL PARENTERAL NUTRITION IV SCH (22:00)
[2020-01-28] MEDS ORDERED: AMINO ACID IV SCH (22:00)
[2020-01-28] MEDS ORDERED: DEXTROSE 70% IV SCH (22:00)
[2020-01-28 23:08] VITALS: BP 121/80
[2020-01-29] MEDS: HYDROmorphone 2 MG/ML VIAL IVP PRN ×5 (03:00→21:10)
[2020-01-29 03:01] VITALS: BP 145/86
[2020-01-29 05:39] LABS: BASO # 0.1 x10^3/uL (0.0-0.2); BASO % 1 % (0-3); EOS # 0.2 x10^3/uL (0.0-0.7); EOS % 2 % (0-3); HEMATOCRIT 27.5 % (36.0-47.0); LYMPH # 0.8 x10^3/uL (1.0-4.8); LYMPH % 10 % (24-48); MEAN CORPUSCULAR HEMOGLOBIN 28 pg (25-35); MEAN CORPUSCULAR HGB CONC 33 g/dL (31-37); MEAN CORPUSCULAR VOLUME 85 fL (79-100); MONO # 0.9 x10^3/uL (0.0-1.1); MONO % 10 % (0-9); NEUT # 6.4 x10^3/uL (1.8-7.7); NEUT % 77 % (31-73); PLATELET COUNT 334 x10^3/uL (140-400); RED BLOOD COUNT 3.24 x10^6/uL (3.50-5.40); RED CELL DISTRIBUTION WIDTH 17.7 % (11.5-14.5); WHITE BLOOD COUNT 8.4 x10^3/uL (4.0-11.0)
[2020-01-29 05:54] LABS: CALCIUM 8.5 mg/dL (8.5-10.1); CREATININE 0.6 mg/dL (0.6-1.0); GFR 121.8; MAGNESIUM 2.1 mg/dL (1.8-2.4); POTASSIUM 3.8 mmol/L (3.5-5.1)
[2020-01-29 07:00] VITALS: BP 131/72
[2020-01-29] MEDS: ZINC OXIDE 20% TOPICAL OINTMENT 28GM TUBE. TP SCH ×2 (08:54→21:09)
[2020-01-29] MEDS: PANTOPRAZOLE 40 MG TABLET.DR. PO SCH (08:54)
[2020-01-29] MEDS: LIDOCAINE 2% TOPICAL JELLY 30GM TUBE. TP SCH ×2 (08:54→21:08)
[2020-01-29] MEDS: SERTRALINE 50 MG TABLET. PO SCH (08:54)
[2020-01-29] MEDS: LORazepam 0.5 MG TABLET PO PRN ×2 (08:58→21:18)
--- NOTE | 2020-01-29 09:50 | NUR ---
SW following. Discussed with RN, SW familiar with pt from frequent admissions. Pt has home TPN through [facility], and Home Health services through [facility]. SW will continue to follow.
--- NOTE | 2020-01-29 10:16 | PDOC ---
PROGRESS NOTES Date of Service DATE: 01/29/20 TIME: 10:12 Subjective Subjective has purulent drainage LLQ abdominal wall with several openings in area. will culture it and consult ID and order abdominal wall ultrasound. has some pain and tenderness in LLQ/groin area. afebrile. lab reviewed. Objective Objective Vital Signs Date Time Temp Pulse Resp B/P (MAP) Pulse Ox O2 Delivery O2 Flow Rate FiO2 01/29/20 07:34 Room Air 01/29/20 03:01 97.5 98 18 145/86 (105) 100 97.5 Intake and Output 01/29/20 07:00 Intake Total 480 ml Balance 480 ml Intake Oral 480 ml # Voids 2 # Bowel Movements 2 Physical Exam Abdomen: Soft, Other (tender LLQ witih purulent drainge from small opening and several other openings near it with drainage and mild redness) Heart: Regular rate, Normal S1, Normal S2 Extremities: No edema General: Alert HEENT: Atraumatic Lungs: Clear to auscultation Neuro: Normal speech Psych/Mental Status: Mental status NL Skin: No rashes Assessment Assessment Problems1. Acute kidney injury secondary to dehydration, nausea and vomiting. improved with iv hydration 2. Nausea and vomiting. resolved 3. Enterocutaneous fistula. 4. Enterovesical fistula. 5. Chronic abdominal pain due to adhesions. 6. Severe protein-calorie malnutrition. LLQ abdominal wall purulent drainage Medical Problems: (1) Abdominal wall fistula Status: Acute Plan Plan of Care send abdominal wall drainage for culture and sensitivity ID consult abdominal ultrasound focusing on LLQ abdominal wall. ? abscess d/c iv normal saline continue TPN iv dilaudid prn lab tomorrow Comment Review of Relevant I have reviewed the following items lucila (where applicable) has been applied. Labs Laboratory Tests Test 01/28/20 06:40 01/29/20 05:20 White Blood Count 7.2 x10^3/uL (4.0-11.0) 8.4 x10^3/uL (4.0-11.0) Red Blood Count 3.56 x10^6/uL (3.50-5.40) 3.24 x10^6/uL (3.50-5.40) Hemoglobin 9.8 g/dL (12.0-15.5) 9.0 g/dL (12.0-15.5) Hematocrit 30.6 % (36.0-47.0) 27.5 % (36.0-47.0) Mean Corpuscular Volume 86 fL (79-100) 85 fL (79-100) Mean Corpuscular Hemoglobin 28 pg (25-35) 28 pg (25-35) Mean Corpuscular Hemoglobin Concent 32 g/dL (31-37) 33 g/dL (31-37) Red Cell Distribution Width 17.7 % (11.5-14.5) 17.7 % (11.5-14.5) Platelet Count 450 x10^3/uL (140-400) 334 x10^3/uL (140-400) Neutrophils (%) (Auto) 74 % (31-73) 77 % (31-73) Lymphocytes (%) (Auto) 12 % (24-48) 10 % (24-48) Monocytes (%) (Auto) 10 % (0-9) 10 % (0-9) Eosinophils (%) (Auto) 3 % (0-3) 2 % (0-3) Basophils (%) (Auto) 1 % (0-3) 1 % (0-3) Neutrophils # (Auto) 5.3 x10^3/uL (1.8-7.7) 6.4 x10^3/uL (1.8-7.7) Lymphocytes # (Auto) 0.9 x10^3/uL (1.0-4.8) 0.8 x10^3/uL (1.0-4.8) Monocytes # (Auto) 0.7 x10^3/uL (0.0-1.1) 0.9 x10^3/uL (0.0-1.1) Eosinophils # (Auto) 0.2 x10^3/uL (0.0-0.7) 0.2 x10^3/uL (0.0-0.7) Basophils # (Auto) 0.1 x10^3/uL (0.0-0.2) 0.1 x10^3/uL (0.0-0.2) Sodium Level 143 mmol/L (136-145) 147 mmol/L (136-145) Potassium Level 3.7 mmol/L (3.5-5.1) 3.8 mmol/L (3.5-5.1) Chloride Level 109 mmol/L (98-107) 111 mmol/L (98-107) Carbon Dioxide Level 24 mmol/L (21-32) 30 mmol/L (21-32) Anion Gap 10 (6-14) 6 (6-14) Blood Urea Nitrogen 41 mg/dL (7-20) 29 mg/dL (7-20) Creatinine 0.9 mg/dL (0.6-1.0) 0.6 mg/dL (0.6-1.0) Estimated GFR (Cockcroft-Gault) 76.3 121.8 Glucose Level 150 mg/dL (70-99) 110 mg/dL (70-99) Calcium Level 8.8 mg/dL (8.5-10.1) 8.5 mg/dL (8.5-10.1) Magnesium Level 2.0 mg/dL (1.8-2.4) 2.1 mg/dL (1.8-2.4) Phosphorus Level 2.8 mg/dL (2.6-4.7) Laboratory Tests Test 01/29/20 05:20 White Blood Count 8.4 x10^3/uL (4.0-11.0) Red Blood Count 3.24 x10^6/uL (3.50-5.40) Hemoglobin 9.0 g/dL (12.0-15.5) Hematocrit 27.5 % (36.0-47.0) Mean Corpuscular Volume 85 fL (79-100) Mean Corpuscular Hemoglobin 28 pg (25-35) Mean Corpuscular Hemoglobin Concent 33 g/dL (31-37) Red Cell Distribution Width 17.7 % (11.5-14.5) Platelet Count 334 x10^3/uL (140-400) Neutrophils (%) (Auto) 77 % (31-73) Lymphocytes (%) (Auto) 10 % (24-48) Monocytes (%) (Auto) 10 % (0-9) Eosinophils (%) (Auto) 2 % (0-3) Basophils (%) (Auto) 1 % (0-3) Neutrophils # (Auto) 6.4 x10^3/uL (1.8-7.7) Lymphocytes # (Auto) 0.8 x10^3/uL (1.0-4.8) Monocytes # (Auto) 0.9 x10^3/uL (0.0-1.1) Eosinophils # (Auto) 0.2 x10^3/uL (0.0-0.7) Basophils # (Auto) 0.1 x10^3/uL (0.0-0.2) Sodium Level 147 mmol/L (136-145) Potassium Level 3.8 mmol/L (3.5-5.1) Chloride Level 111 mmol/L (98-107) Carbon Dioxide Level 30 mmol/L (21-32) Anion Gap 6 (6-14) Blood Urea Nitrogen 29 mg/dL (7-20) Creatinine 0.6 mg/dL (0.6-1.0) Estimated GFR (Cockcroft-Gault) 121.8 Glucose Level 110 mg/dL (70-99) Calcium Level 8.5 mg/dL (8.5-10.1) Phosphorus Level 2.8 mg/dL (2.6-4.7) Magnesium Level 2.1 mg/dL (1.8-2.4) Microbiology 01/26/20 Blood Culture - Preliminary, Resulted NO GROWTH AFTER 2 DAYS Medications Current Medications Sodium Chloride 1,000 ml @ 1,000 mls/hr 1X ONCE IV Last administered on 01/26/20 18:39; Start 01/26/20 at 17:45; Stop 01/26/20 at 18:44; Status DC Ceftriaxone Sodium (Rocephin) 1 gm 1X ONCE IVP Last administered on 01/26/20 18:39; Start 01/26/20 at 17:45; Stop 01/26/20 at 17:47; Status DC Morphine Sulfate (Morphine Sulfate) 2 mg 1X ONCE IV Last administered on 01/26/20at 18:40; Start 01/26/20 at 18:15; Stop 01/26/20 at 18:16; Status DC Ondansetron HCl (Zofran) 4 mg 1X ONCE IVP Last administered on 01/26/20at 18:39; Start 01/26/20 at 18:15; Stop 01/26/20 at 18:16; Status DC Hydromorphone HCl (Dilaudid) 0.5 mg 1X ONCE IV Last administered on 01/26/20at 19:44; Start 01/26/20 at 18:30; Stop 01/26/20 at 18:36; Status DC Sodium Chloride 1,000 ml @ 1,000 mls/hr 1X ONCE IV ; Start 01/26/20 at 18:30; Stop 01/26/20 at 19:45; Status DC Ondansetron HCl (Zofran) 4 mg 1X ONCE IVP ; Start 01/26/20 at 18:30; Stop 01/26/20 at 19:45; Status DC Ondansetron HCl (Zofran) 4 mg PRN Q8HRS PRN IV NAUSEA/VOMITING 1ST CHOICE Last administered on 01/27/20at 09:27; Start 01/26/20 at 22:00; Stop 01/27/20 at 11:53; Status DC Morphine Sulfate (Morphine Sulfate) 4 mg PRN Q2HR PRN IV SEVERE PAIN 7-10 Last administered on 01/27/20at 09:27; Start 01/26/20 at 22:00; Stop 01/27/20 at 11:53; Status DC Sodium Chloride 1,000 ml @ 75 mls/hr [id number] IV Last administered on 01/26/20at 23:55; Start 01/26/20 at 21:53; Stop 01/27/20 at 11:53; Status DC Sodium Chloride 1,000 ml @ 125 mls/hr Q8H IV Last administered on 01/27/20at 12:55; Start 01/27/20 at 11:45; Stop 01/27/20 at 19:19; Status DC Hydromorphone HCl (Dilaudid) 2 mg PRN Q4HRS PRN IVP PAIN Last administered on 01/29/20at 07:04; Start 01/27/20 at 11:45 Ondansetron HCl (Zofran) 4 mg PRN Q6HRS PRN IVP NAUSEA/VOMITING Last administered on 01/27/20at 22:05; Start 01/27/20 at 11:45 Pantoprazole Sodium (Protonix) 40 mg DAILYAC PO Last administered on 01/29/20at 08:54; Start 01/27/20 at 13:00 Lorazepam (Ativan) 0.5 mg PRN Q6HRS PRN PO ANXIETY / AGITATION Last administered on 01/29/20at 08:58; Start 01/27/20 at 11:45 Acetaminophen (Tylenol) 650 mg PRN Q6HRS PRN PO MILD PAIN / TEMP > 100.3'F; Start 01/27/20 at 11:45 Zinc Oxide (Zinc Oxide 20% Topical) 1 sang BID TP Last administered on 01/29/20at 08:54; Start 01/27/20 at 12:30 Zolpidem Tartrate (Ambien) 5 mg PRN QHS PRN PO INSOMNIA Last administered on 01/28/20 21:33; Start 01/27/20 at 11:45 Sertraline HCl (Zoloft) 50 mg DAILY PO Last administered on 01/29/20 08:54; Start 01/27/20 at 13:00 Sodium Chloride 1,000 ml @ 45 mls/hr [id number] IV Last administered on 01/28/20at 20:14; Start 01/27/20 at 22:00; Stop 01/29/20 at 09:56; Status DC Info (Tpn Per Pharmacy) 1 each PRN DAILY PRN MC SEE COMMENTS Last administered on 01/28/20at 12:33; Start 01/27/20 at 12:00 Lidocaine HCl (Xylocaine 2% Topical 30gm Tube) 1 sang BID TP Last administered on 01/29/20 08:54; Start 01/27/20 at 12:15 Sodium Chloride 120 meq/Sodium Acetate 120 meq/ Potassium Chloride 30 meq/ Potassium Phosphate 22 mmol/ Magnesium Sulfate 24 meq/Calcium Gluconate 10 meq/ Multivitamins 10 ml/Chromium/ Copper/Manganese/ Seleni/Zn 1 ml/ Total Parenteral Nutrition/Amino Acids/Dextrose/ Fat Emulsion Intravenous 1,920 ml @ 80 mls/hr TPN CONT IV Last administered on 01/27/20at 22:21; Start 01/27/20 at 22:00; Stop 01/28/20 at 21:59; Status DC Sodium Chloride 120 meq/Sodium Acetate 120 meq/ Potassium Chloride 50 meq/ Potassium Phosphate 22 mmol/ Magnesium Sulfate 24 meq/Calcium Gluconate 10 meq/ Multivitamins 10 ml/Chromium/ Copper/Manganese/ Seleni/Zn 1 ml/ Total Parenteral Nutrition/Amino Acids/Dextrose/ Fat Emulsion Intravenous 1,920 ml @ 80 mls/hr TPN CONT IV Last administered on 01/28/20at 22:05; Start 01/28/20 at 22:00; Stop 01/29/20 at 21:59 Active Scripts Active Amlodipine Besylate 5 Mg Tablet 5 Mg PO DAILY Dilaudid (Hydromorphone Hcl) 2 Mg Tablet 1 Tab PO Q6HRS PRN MDD 4 Tablet(s) Pantoprazole Sodium (Pantoprazole Sodium) 40 Mg Tablet.dr 40 Mg PO DAILYAC Tylenol (Acetaminophen) 325 Mg Tablet 650 Mg PO PRN Q6HRS PRN Zinc Oxide 56.7 Gm Oint...g. 1 Sang TP BID Ambien (Zolpidem Tartrate) 5 Mg Tablet 5 Mg PO PRN QHS PRN 30 Days [Tpn Per Pharmacy] 1 EACH Each 1 Each MC PRN DAILY PRN TPN at 85cc/hour Sertraline Hcl 50 Mg Tablet 50 Mg PO DAILY 30 Days Lidocaine 35.44 Gm Oint...g. 1 Sang TP BID Reported Ondansetron Hcl 4 Mg Tablet 4 Mg PO PRN Q6HRS PRN Lorazepam 0.5 Mg Tablet 0.5 Mg PO Q6HRS PRN Vitals/I & O Vital Sign - Last 24 Hours 01/28/20 01/28/20 01/28/20 01/28/20 10:26 11:00 15:00 16:52 Temp 98.0 98.4 98.0 98.4 Pulse 108 120 Resp 20 18 18 20 B/P (MAP) 139/83 (101) 131/92 (105) Pulse Ox 99 100 O2 Delivery Room Air Room Air Room Air Room Air 01/28/20 01/28/20 01/28/20 01/28/20 17:22 19:24 19:50 21:34 Temp 97.9 97.9 Pulse 108 Resp 20 16 B/P (MAP) 127/71 (89) Pulse Ox 100 O2 Delivery Room Air Room Air Room Air Room Air 01/28/20 01/28/20 01/29/20 01/29/20 22:09 23:08 03:00 03:01 Temp 97.9 97.5 97.9 97.5 Pulse 95 98 Resp 16 18 B/P (MAP) 121/80 (94) 145/86 (105) Pulse Ox 98 100 O2 Delivery Room Air Room Air Room Air Room Air 01/29/20 01/29/20 01/29/20 03:38 07:04 07:34 O2 Delivery Room Air Room Air Room Air Intake and Output 01/28/20 01/28/20 01/29/20 15:00 23:00 07:00 Intake Total 240 ml 240 ml Balance 240 ml 240 ml Justicifation of Admission Dx: Justifications for Admission: Justification of Admission Dx: Yes BENITA LUTZ MD Jan 29, 2020 10:16
[2020-01-29 12:00] VITALS: BP 146/72
--- NOTE | 2020-01-29 13:25 | RAD ---
EXAM: Limited abdominal ultrasound. HISTORY: Lower abdominal wall purulent drainage. COMPARISON: 01/27/2020. FINDINGS: Sonography of the site of drainage along the left lower quadrant anterior abdominal wall was performed. This reveals an underlying body wall heterogeneous collection measuring 3.7 x 1.2 x 1.1 cm. This communicates with the skin surface. Involvement of the peritoneal cavity is not clearly demonstrated by this technique. IMPRESSION: 1. 3.7 x 1.2 cm left lower quadrant body wall collection consistent with abscess underlying the site of drainage. Clear involvement of the peritoneal cavity is not demonstrated by this technique, but is suspected given findings of prior CT. Electronically signed by: Niles Butt MD (01/29/2020 1:22 PM) [id number]
[2020-01-29] MEDS: TPN PER PHARMACY MC PRN (13:38)
--- NOTE | 2020-01-29 13:39 | NUR ---
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 TPN started 01/27/20 B:Pertinent PMH: correction tpn Height: 5 feet, 4 inches Weight: 43.5 kg Current diet: LABS: Sodium: 147 Potassium: 3.8 Chloride: 111 Calcium: 8.5 Corrected Calcium: 9.78 Magnesium: 2.1 CO2: 30 SCr: 0.6 Glucose: 110 Albumin: 2.4 AST: 9 ALT: 153 TPN FORMULA: TPN TYPE: Central Continuous AMINO ACIDS: 90 gm DEXTROSE: 285 gm LIPIDS: 35 gm SODIUM CHLORIDE: 120 mEq SODIUM ACETATE: 120 mEq POTASSIUM CHLORIDE: 50 mEq POTASSIUM PHOSPHATE: 22 mmol MAGNESIUM: 24 mEq CALCIUM: 10 mEq MULTIPLE VITAMIN: 10 ml TRACE ELEMENTS: 1 ml(s) TPN PLAN: Continue same today R: Continue TPN Will monitor electrolytes, glucose, and tolerance to TPN. Sandra Muñiz RPH, 01/29/20 [id number]
--- NOTE | 2020-01-29 13:48 | PDOC ---
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 Several months ago had a drain placed for a left lower quadrant anterior abdominal wall abscess with growth of mixed skin isiha. Now admitted to [facility] through the Emergency Room on 01/26/2020 with a 2-day history of nausea and vomiting. She has chronic abdominal pain due to adhesions Currently some better but has persistent drainage in LLQ. No current F/c/S/N/V/D/SOA Vital Sign Vital Signs Vital Signs Date Time Temp Pulse Resp B/P (MAP) Pulse Ox O2 Delivery O2 Flow Rate FiO2 01/29/20 13:03 Room Air 01/29/20 12:00 98.0 93 18 146/72 (96) 98 98.0 Physical Exam PHYSICAL EXAM GENERAL: She is sitting upright in bed. She looks comfortable. She is in no acute distress. HEENT: Oral cavity, pharynx is clear. She is a little cachectic. NECK: Supple, no JVD. LUNGS: Clear. HEART: S1, S2. Right-sided catheter without signs of complications. ABDOMEN: Nondistended. Left abd side without fluctuation. No ten derness/warmth/erythema. Left groin with trace purulence EXTREMITIES: No clubbing, cyanosis or gross edema. SKIN: Warm to touch without signs of rash. NEUROLOGIC: She is alert and appropriate Labs Lab Laboratory Tests Test 01/29/20 05:20 White Blood Count 8.4 x10^3/uL (4.0-11.0) Red Blood Count 3.24 x10^6/uL (3.50-5.40) Hemoglobin 9.0 g/dL (12.0-15.5) Hematocrit 27.5 % (36.0-47.0) Mean Corpuscular Volume 85 fL (79-100) Mean Corpuscular Hemoglobin 28 pg (25-35) Mean Corpuscular Hemoglobin Concent 33 g/dL (31-37) Red Cell Distribution Width 17.7 % (11.5-14.5) Platelet Count 334 x10^3/uL (140-400) Neutrophils (%) (Auto) 77 % (31-73) Lymphocytes (%) (Auto) 10 % (24-48) Monocytes (%) (Auto) 10 % (0-9) Eosinophils (%) (Auto) 2 % (0-3) Basophils (%) (Auto) 1 % (0-3) Neutrophils # (Auto) 6.4 x10^3/uL (1.8-7.7) Lymphocytes # (Auto) 0.8 x10^3/uL (1.0-4.8) Monocytes # (Auto) 0.9 x10^3/uL (0.0-1.1) Eosinophils # (Auto) 0.2 x10^3/uL (0.0-0.7) Basophils # (Auto) 0.1 x10^3/uL (0.0-0.2) Sodium Level 147 mmol/L (136-145) Potassium Level 3.8 mmol/L (3.5-5.1) Chloride Level 111 mmol/L (98-107) Carbon Dioxide Level 30 mmol/L (21-32) Anion Gap 6 (6-14) Blood Urea Nitrogen 29 mg/dL (7-20) Creatinine 0.6 mg/dL (0.6-1.0) Estimated GFR (Cockcroft-Gault) 121.8 Glucose Level 110 mg/dL (70-99) Calcium Level 8.5 mg/dL (8.5-10.1) Phosphorus Level 2.8 mg/dL (2.6-4.7) Magnesium Level 2.1 mg/dL (1.8-2.4) Micro IMPRESSION: 1. 3.7 x 1.2 cm left lower quadrant body wall collection consistent with abscess underlying the site of drainage. Clear involvement of the peritoneal cavity is not demonstrated by this technique, but is suspected given findings of prior CT. Microbiology 01/26/20 Blood Culture - Preliminary, Resulted NO GROWTH AFTER 2 DAYS Objective Assessment 1. Left lower quadrant abscess wounds had some purulent drainage U/S with ? abscess 2. VANCOMYCIN allergy. 3. Enterocutaneous fistula. 4. Enterovesicular fistula. 5. Malnutrition. 6. History of Clostridium difficile. Plan Plan of Care Dose Meropenem/Daptomycin Consult IR to evaluate for drain F/u labs and cults D/w nursing ABBY MOTT MD Jan 29, 2020 13:48
[2020-01-29 15:00] VITALS: BP 132/70
[2020-01-29] MEDS: MEROPENEM 500 MG in IV NORMAL SALINE 50ML 50 ML IV SCH ×2 (15:05→18:30)
[2020-01-29] MEDS: DAPTOMYCIN IV SCH (15:05)
[2020-01-29] MEDS: NORMAL SALINE IV SCH (15:05)
--- NOTE | 2020-01-29 15:23 | PDOC ---
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 She unfortunately also has chronic enterocutaneous fistula, which intermittently drain less or seal off, and then form subcutaneous abscesses which then generally break open on their own or are drained. The LLQ collection, previously drained, likely decompressed a EC fistula and as persistent with drainage since that time, to varying degrees. There have been multiple intraperitoneal fluid and gas collections over her last several scans, which seem to connect to these drainage sites. . These are poorly defined on her current study due to lack of IV and ora l contrast , making distinguishing them from bowel very difficult. Will plan on US guided aspiration of the LLQ collection per request. Justicifation of Admission Dx: Justifications for Admission: Justification of Admission Dx: Yes CARRINGTON BURKETT MD Jan 29, 2020 15:23
[2020-01-29 19:00] VITALS: BP 148/92
[2020-01-29] MEDS: ZOLPIDEM 5 MG TABLET. PO PRN (21:18)
[2020-01-29] MEDS ORDERED: AMINO ACID IV SCH (22:00)
[2020-01-29] MEDS ORDERED: [UNRECOGNIZED DRUG - OTHER] IV SCH (22:00)
[2020-01-29] MEDS ORDERED: DEXTROSE 70% IV SCH (22:00)
[2020-01-29] MEDS ORDERED: TOTAL PARENTERAL NUTRITION IV SCH (22:00)
[2020-01-29 23:00] VITALS: BP 154/85
[2020-01-30] MEDS: MEROPENEM 500 MG in IV NORMAL SALINE 50ML 50 ML IV SCH ×4 (00:27→17:11)
[2020-01-30 03:00] VITALS: BP 136/86
[2020-01-30] MEDS: HYDROmorphone 2 MG/ML VIAL IVP PRN ×5 (03:00→21:21)
[2020-01-30 07:00] VITALS: BP 131/81
[2020-01-30] MEDS: PANTOPRAZOLE 40 MG TABLET.DR. PO SCH (07:41)
[2020-01-30] MEDS: SERTRALINE 50 MG TABLET. PO SCH (07:41)
[2020-01-30] MEDS: LORazepam 0.5 MG TABLET PO PRN (07:44)
[2020-01-30 07:52] LABS: BASO # 0.1 x10^3/uL (0.0-0.2); BASO % 1 % (0-3); EOS # 0.2 x10^3/uL (0.0-0.7); EOS % 4 % (0-3); HEMATOCRIT 28.5 % (36.0-47.0); HEMOGLOBIN 9.2 g/dL (12.0-15.5); LYMPH # 0.9 x10^3/uL (1.0-4.8); LYMPH % 15 % (24-48); MEAN CORPUSCULAR HEMOGLOBIN 28 pg (25-35); MEAN CORPUSCULAR HGB CONC 32 g/dL (31-37); MEAN CORPUSCULAR VOLUME 87 fL (79-100); MONO # 0.5 x10^3/uL (0.0-1.1); MONO % 8 % (0-9); NEUT # 4.3 x10^3/uL (1.8-7.7); NEUT % 72 % (31-73); PLATELET COUNT 312 x10^3/uL (140-400); RED BLOOD COUNT 3.29 x10^6/uL (3.50-5.40); RED CELL DISTRIBUTION WIDTH 17.9 % (11.5-14.5)
[2020-01-30 08:09] LABS: CALCIUM 8.7 mg/dL (8.5-10.1); CREATININE 0.5 mg/dL (0.6-1.0); GFR 150.3; MAGNESIUM 2.1 mg/dL (1.8-2.4); POTASSIUM 4.6 mmol/L (3.5-5.1)
[2020-01-30] MEDS: ZINC OXIDE 20% TOPICAL OINTMENT 28GM TUBE. TP SCH ×2 (09:00→21:23)
[2020-01-30] MEDS: LIDOCAINE 2% TOPICAL JELLY 30GM TUBE. TP SCH ×2 (09:00→21:22)
--- NOTE | 2020-01-30 09:54 | NUR ---
SW following. Discussed with RN, pt on IV abx, IR following - possible procedure. SW will continue to follow.
--- NOTE | 2020-01-30 10:37 | PDOC ---
PROGRESS NOTES Date of Service DATE: 01/30/20 TIME: 10:32 Subjective Subjective abdominal ultrasound report noted for possible left abdominal wall abscess. lab reviewed. feels the same. afebrile Objective Objective Vital Signs Date Time Temp Pulse Resp B/P (MAP) Pulse Ox O2 Delivery O2 Flow Rate FiO2 01/30/20 08:11 Room Air 01/30/20 07:00 97.9 100 18 131/81 (98) 100 97.9 Intake and Output 01/30/20 07:00 Intake Total 1720 ml Output Total 1050 ml Balance 670 ml Intake Oral 1720 ml Output Urine Total 1050 ml # Voids 2 Physical Exam Abdomen: Soft, Other (EC fistula. some tenderness LLQ abdominal wall with multiple open areas) Heart: Regular rate, Normal S1, Normal S2 Extremities: Other (trace pedal edema) General: Alert HEENT: Atraumatic Neuro: Normal speech Psych/Mental Status: Mental status NL Skin: No rashes Assessment Assessment Problems1. Acute kidney injury resolved 2. Nausea and vomiting. resolved 3. Enterocutaneous fistula. 4. Enterovesical fistula. 5. Chronic abdominal pain due to adhesions. 6. Severe protein-calorie malnutrition. LLQ abdominal wall purulent drainage. possible abscess Medical Problems: (1) Abdominal wall fistula Status: Acute Plan Plan of Care continue iv daptomycin and meropenem await IR to attempt aspiration of possible abdominal wall abscess decrease kcl in TPN. spoke with pharmacist Comment Review of Relevant I have reviewed the following items lucila (where applicable) has been applied. Labs Laboratory Tests Test 01/29/20 05:20 01/30/20 07:15 White Blood Count 8.4 x10^3/uL (4.0-11.0) 6.0 x10^3/uL (4.0-11.0) Red Blood Count 3.24 x10^6/uL (3.50-5.40) 3.29 x10^6/uL (3.50-5.40) Hemoglobin 9.0 g/dL (12.0-15.5) 9.2 g/dL (12.0-15.5) Hematocrit 27.5 % (36.0-47.0) 28.5 % (36.0-47.0) Mean Corpuscular Volume 85 fL (79-100) 87 fL (79-100) Mean Corpuscular Hemoglobin 28 pg (25-35) 28 pg (25-35) Mean Corpuscular Hemoglobin Concent 33 g/dL (31-37) 32 g/dL (31-37) Red Cell Distribution Width 17.7 % (11.5-14.5) 17.9 % (11.5-14.5) Platelet Count 334 x10^3/uL (140-400) 312 x10^3/uL (140-400) Neutrophils (%) (Auto) 77 % (31-73) 72 % (31-73) Lymphocytes (%) (Auto) 10 % (24-48) 15 % (24-48) Monocytes (%) (Auto) 10 % (0-9) 8 % (0-9) Eosinophils (%) (Auto) 2 % (0-3) 4 % (0-3) Basophils (%) (Auto) 1 % (0-3) 1 % (0-3) Neutrophils # (Auto) 6.4 x10^3/uL (1.8-7.7) 4.3 x10^3/uL (1.8-7.7) Lymphocytes # (Auto) 0.8 x10^3/uL (1.0-4.8) 0.9 x10^3/uL (1.0-4.8) Monocytes # (Auto) 0.9 x10^3/uL (0.0-1.1) 0.5 x10^3/uL (0.0-1.1) Eosinophils # (Auto) 0.2 x10^3/uL (0.0-0.7) 0.2 x10^3/uL (0.0-0.7) Basophils # (Auto) 0.1 x10^3/uL (0.0-0.2) 0.1 x10^3/uL (0.0-0.2) Sodium Level 147 mmol/L (136-145) 147 mmol/L (136-145) Potassium Level 3.8 mmol/L (3.5-5.1) 4.6 mmol/L (3.5-5.1) Chloride Level 111 mmol/L (98-107) 111 mmol/L (98-107) Carbon Dioxide Level 30 mmol/L (21-32) 32 mmol/L (21-32) Anion Gap 6 (6-14) 4 (6-14) Blood Urea Nitrogen 29 mg/dL (7-20) 23 mg/dL (7-20) Creatinine 0.6 mg/dL (0.6-1.0) 0.5 mg/dL (0.6-1.0) Estimated GFR (Cockcroft-Gault) 121.8 150.3 Glucose Level 110 mg/dL (70-99) 126 mg/dL (70-99) Calcium Level 8.5 mg/dL (8.5-10.1) 8.7 mg/dL (8.5-10.1) Phosphorus Level 2.8 mg/dL (2.6-4.7) Magnesium Level 2.1 mg/dL (1.8-2.4) 2.1 mg/dL (1.8-2.4) Laboratory Tests Test 01/30/20 07:15 White Blood Count 6.0 x10^3/uL (4.0-11.0) Red Blood Count 3.29 x10^6/uL (3.50-5.40) Hemoglobin 9.2 g/dL (12.0-15.5) Hematocrit 28.5 % (36.0-47.0) Mean Corpuscular Volume 87 fL (79-100) Mean Corpuscular Hemoglobin 28 pg (25-35) Mean Corpuscular Hemoglobin Concent 32 g/dL (31-37) Red Cell Distribution Width 17.9 % (11.5-14.5) Platelet Count 312 x10^3/uL (140-400) Neutrophils (%) (Auto) 72 % (31-73) Lymphocytes (%) (Auto) 15 % (24-48) Monocytes (%) (Auto) 8 % (0-9) Eosinophils (%) (Auto) 4 % (0-3) Basophils (%) (Auto) 1 % (0-3) Neutrophils # (Auto) 4.3 x10^3/uL (1.8-7.7) Lymphocytes # (Auto) 0.9 x10^3/uL (1.0-4.8) Monocytes # (Auto) 0.5 x10^3/uL (0.0-1.1) Eosinophils # (Auto) 0.2 x10^3/uL (0.0-0.7) Basophils # (Auto) 0.1 x10^3/uL (0.0-0.2) Sodium Level 147 mmol/L (136-145) Potassium Level 4.6 mmol/L (3.5-5.1) Chloride Level 111 mmol/L (98-107) Carbon Dioxide Level 32 mmol/L (21-32) Anion Gap 4 (6-14) Blood Urea Nitrogen 23 mg/dL (7-20) Creatinine 0.5 mg/dL (0.6-1.0) Estimated GFR (Cockcroft-Gault) 150.3 Glucose Level 126 mg/dL (70-99) Calcium Level 8.7 mg/dL (8.5-10.1) Magnesium Level 2.1 mg/dL (1.8-2.4) Microbiology 01/26/20 Blood Culture - Preliminary, Resulted NO GROWTH AFTER 3 DAYS Medications Current Medications Sodium Chloride 1,000 ml @ 1,000 mls/hr 1X ONCE IV Last administered on 01/26/20at 18:39; Start 01/26/20 at 17:45; Stop 01/26/20 at 18:44; Status DC Ceftriaxone Sodium (Rocephin) 1 gm 1X ONCE IVP Last administered on 01/26/20at 18:39; Start 01/26/20 at 17:45; Stop 01/26/20 at 17:47; Status DC Morphine Sulfate (Morphine Sulfate) 2 mg 1X ONCE IV Last administered on 01/26/20at 18:40; Start 01/26/20 at 18:15; Stop 01/26/20 at 18:16; Status DC Ondansetron HCl (Zofran) 4 mg 1X ONCE IVP Last administered on 01/26/20at 18:39; Start 01/26/20 at 18:15; Stop 01/26/20 at 18:16; Status DC Hydromorphone HCl (Dilaudid) 0.5 mg 1X ONCE IV Last administered on 01/26/20at 19:44; Start 01/26/20 at 18:30; Stop 01/26/20 at 18:36; Status DC Sodium Chloride 1,000 ml @ 1,000 mls/hr 1X ONCE IV ; Start 01/26/20 at 18:30; Stop 01/26/20 at 19:45; Status DC Ondansetron HCl (Zofran) 4 mg 1X ONCE IVP ; Start 01/26/20 at 18:30; Stop 01/26/20 at 19:45; Status DC Ondansetron HCl (Zofran) 4 mg PRN Q8HRS PRN IV NAUSEA/VOMITING 1ST CHOICE Last administered on 01/27/20 09:27; Start 01/26/20 at 22:00; Stop 01/27/20 at 11:53; Status DC Morphine Sulfate (Morphine Sulfate) 4 mg PRN Q2HR PRN IV SEVERE PAIN 7-10 Last administered on 01/27/20 09:27; Start 01/26/20 at 22:00; Stop 01/27/20 at 11:53; Status DC Sodium Chloride 1,000 ml @ 75 mls/hr [id number] IV Last administered on 01/26/20at 23:55; Start 01/26/20 at 21:53; Stop 01/27/20 at 11:53; Status DC Sodium Chloride 1,000 ml @ 125 mls/hr Q8H IV Last administered on 01/27/20at 12:55; Start 01/27/20 at 11:45; Stop 01/27/20 at 19:19; Status DC Hydromorphone HCl (Dilaudid) 2 mg PRN Q4HRS PRN IVP PAIN Last administered on 01/30/20 07:41; Start 01/27/20 at 11:45 Ondansetron HCl (Zofran) 4 mg PRN Q6HRS PRN IVP NAUSEA/VOMITING Last administered on 01/27/20 22:05; Start 01/27/20 at 11:45 Pantoprazole Sodium (Protonix) 40 mg DAILYAC PO Last administered on 01/30/20 07:41; Start 01/27/20 at 13:00 Lorazepam (Ativan) 0.5 mg PRN Q6HRS PRN PO ANXIETY / AGITATION Last administered on 01/30/20 07:44; Start 01/27/20 at 11:45 Acetaminophen (Tylenol) 650 mg PRN Q6HRS PRN PO MILD PAIN / TEMP > 100.3'F; Start 01/27/20 at 11:45 Zinc Oxide (Zinc Oxide 20% Topical) 1 sang BID TP Last administered on 8/17/20at 21:09; Start 01/27/20 at 12:30 Zolpidem Tartrate (Ambien) 5 mg PRN QHS PRN PO INSOMNIA Last administered on 01/29/20at 21:18; Start 01/27/20 at 11:45 Sertraline HCl (Zoloft) 50 mg DAILY PO Last administered on 01/30/20at 07:41; Start 01/27/20 at 13:00 Sodium Chloride 1,000 ml @ 45 mls/hr [id number] IV Last administered on 01/28/20at 20:14; Start 01/27/20 at 22:00; Stop 01/29/20 at 09:56; Status DC Info (Tpn Per Pharmacy) 1 each PRN DAILY PRN MC SEE COMMENTS Last administered on 01/29/20at 13:38; Start 01/27/20 at 12:00 Lidocaine HCl (Xylocaine 2% Topical 30gm Tube) 1 sang BID TP Last administered on 01/29/20at 21:08; Start 01/27/20 at 12:15 Sodium Chloride 120 meq/Sodium Acetate 120 meq/ Potassium Chloride 30 meq/ Potassium Phosphate 22 mmol/ Magnesium Sulfate 24 meq/Calcium Gluconate 10 meq/ Multivitamins 10 ml/Chromium/ Copper/Manganese/ Seleni/Zn 1 ml/ Total Parenteral Nutrition/Amino Acids/Dextrose/ Fat Emulsion Intravenous 1,920 ml @ 80 mls/hr TPN CONT IV Last administered on 01/27/20at 22:21; Start 01/27/20 at 22:00; Stop 01/28/20 at 21:59; Status DC Sodium Chloride 120 meq/Sodium Acetate 120 meq/ Potassium Chloride 50 meq/ Potassium Phosphate 22 mmol/ Magnesium Sulfate 24 meq/Calcium Gluconate 10 meq/ Multivitamins 10 ml/Chromium/ Copper/Manganese/ Seleni/Zn 1 ml/ Total Parenteral Nutrition/Amino Acids/Dextrose/ Fat Emulsion Intravenous 1,920 ml @ 80 mls/hr TPN CONT IV Last administered on 01/28/20at 22:05; Start 01/28/20 at 22:00; Stop 01/29/20 at 21:59; Status DC Sodium Chloride 120 meq/Sodium Acetate 120 meq/ Potassium Chloride 50 meq/ Potassium Phosphate 22 mmol/ Magnesium Sulfate 24 meq/Calcium Gluconate 10 meq/ Multivitamins 10 ml/Chromium/ Copper/Manganese/ Seleni/Zn 1 ml/ Total Parenteral Nutrition/Amino Acids/Dextrose/ Fat Emulsion Intravenous 1,920 ml @ 80 mls/hr TPN CONT IV Last administered on 01/29/20at 21:52; Start 01/29/20 at 22:00; Stop 01/30/20 at 21:59 Meropenem 500 mg/ Sodium Chloride 50 ml @ 100 mls/hr Q6HRS IV Last administered on 01/30/20at 06:12; Start 01/29/20 at 14:00 Daptomycin 260 mg/ Sodium Chloride 50 ml @ 100 mls/hr Q24H IV Last administered on 01/29/20at 15:05; Start 01/29/20 at 14:00 Active Scripts Active Amlodipine Besylate 5 Mg Tablet 5 Mg PO DAILY Dilaudid (Hydromorphone Hcl) 2 Mg Tablet 1 Tab PO Q6HRS PRN MDD 4 Tablet(s) Pantoprazole Sodium (Pantoprazole Sodium) 40 Mg Tablet.dr 40 Mg PO DAILYAC Tylenol (Acetaminophen) 325 Mg Tablet 650 Mg PO PRN Q6HRS PRN Zinc Oxide 56.7 Gm Oint...g. 1 Sang TP BID Ambien (Zolpidem Tartrate) 5 Mg Tablet 5 Mg PO PRN QHS PRN 30 Days [Tpn Per Pharmacy] 1 EACH Each 1 Each MC PRN DAILY PRN TPN at 85cc/hour Sertraline Hcl 50 Mg Tablet 50 Mg PO DAILY 30 Days Lidocaine 35.44 Gm Oint...g. 1 Sang TP BID Reported Ondansetron Hcl 4 Mg Tablet 4 Mg PO PRN Q6HRS PRN Lorazepam 0.5 Mg Tablet 0.5 Mg PO Q6HRS PRN Vitals/I & O Vital Sign - Last 24 Hours 01/29/20 01/29/20 01/29/20 01/29/20 12:00 12:33 13:03 15:00 Temp 98.0 97.9 98.0 97.9 Pulse 93 94 Resp 18 18 B/P (MAP) 146/72 (96) 132/70 (90) Pulse Ox 98 99 O2 Delivery Room Air Room Air Room Air Room Air 01/29/20 01/29/20 01/29/20 01/29/20 16:43 17:13 19:00 20:00 Temp 98.7 98.7 Pulse 78 Resp 20 B/P (MAP) 148/92 (110) Pulse Ox 95 O2 Delivery Room Air Room Air Room Air Room Air 01/29/20 01/29/20 01/29/20 01/30/20 21:10 21:52 23:00 03:00 Temp 98.4 98.4 Pulse 98 Resp 20 B/P (MAP) 154/85 (108) Pulse Ox 100 O2 Delivery Room Air Room Air Room Air Room Air 01/30/20 01/30/20 01/30/20 01/30/20 03:00 03:30 07:00 07:41 Temp 97.9 97.9 97.9 97.9 Pulse 102 100 Resp 20 18 B/P (MAP) 136/86 (103) 131/81 (98) Pulse Ox 99 100 O2 Delivery Room Air Room Air Room Air Room Air 01/30/20 08:11 O2 Delivery Room Air Intake and Output 01/29/20 01/29/20 01/30/20 15:00 23:00 07:00 Intake Total 680 ml 640 ml 400 ml Output Total 600 ml 450 ml Balance 680 ml 40 ml -50 ml Justicifation of Admission Dx: Justifications for Admission: Justification of Admission Dx: Yes Nutrition Consultation Dietary Evaluation: Recommendations by RD: Dietary education by RD, PPN/TPN Comments: REC continue home TPN: 285 g dextrose, 90 g AA, 35 g lipid diet as tolerated Expected Outcomes/Goals: TPN to meet >75% est nutr needs Interpretation of weight loss: >5% in 1 month Malnutrition Findings: Muscle Mass (Severe): Severe Depletion Weight Status: Underweight BENITA LUTZ MD Jan 30, 2020 10:37
[2020-01-30 11:00] VITALS: BP 132/76
--- NOTE | 2020-01-30 11:13 | PDOC ---
Infectious Disease Note Subjective Subjective Known to service Arousable post meds. Vital Sign Vital Signs Vital Signs Date Time Temp Pulse Resp B/P (MAP) Pulse Ox O2 Delivery O2 Flow Rate FiO2 01/30/20 08:11 Room Air 01/30/20 07:00 97.9 100 18 131/81 (98) 100 97.9 Physical Exam PHYSICAL EXAM GENERAL: She is sitting upright in bed. She looks comfortable. She is in no acute distress.Sleepy HEENT: Oral cavity, pharynx is clear. She is a little cachectic. NECK: Supple, no JVD. LUNGS: Clear. HEART: S1, S2. Right-sided catheter without signs of complications. ABDOMEN: Nondistended. Left abd side without fluctuation. No tenderness/warmth/erythema. Left groin with trace purulence EXTREMITIES: No clubbing, cyanosis or gross edema. SKIN: Warm to touch without signs of rash. NEUROLOGIC: She is alert but medicated Labs Lab Laboratory Tests Test 01/30/20 07:15 White Blood Count 6.0 x10^3/uL (4.0-11.0) Red Blood Count 3.29 x10^6/uL (3.50-5.40) Hemoglobin 9.2 g/dL (12.0-15.5) Hematocrit 28.5 % (36.0-47.0) Mean Corpuscular Volume 87 fL (79-100) Mean Corpuscular Hemoglobin 28 pg (25-35) Mean Corpuscular Hemoglobin Concent 32 g/dL (31-37) Red Cell Distribution Width 17.9 % (11.5-14.5) Platelet Count 312 x10^3/uL (140-400) Neutrophils (%) (Auto) 72 % (31-73) Lymphocytes (%) (Auto) 15 % (24-48) Monocytes (%) (Auto) 8 % (0-9) Eosinophils (%) (Auto) 4 % (0-3) Basophils (%) (Auto) 1 % (0-3) Neutrophils # (Auto) 4.3 x10^3/uL (1.8-7.7) Lymphocytes # (Auto) 0.9 x10^3/uL (1.0-4.8) Monocytes # (Auto) 0.5 x10^3/uL (0.0-1.1) Eosinophils # (Auto) 0.2 x10^3/uL (0.0-0.7) Basophils # (Auto) 0.1 x10^3/uL (0.0-0.2) Sodium Level 147 mmol/L (136-145) Potassium Level 4.6 mmol/L (3.5-5.1) Chloride Level 111 mmol/L (98-107) Carbon Dioxide Level 32 mmol/L (21-32) Anion Gap 4 (6-14) Blood Urea Nitrogen 23 mg/dL (7-20) Creatinine 0.5 mg/dL (0.6-1.0) Estimated GFR (Cockcroft-Gault) 150.3 Glucose Level 126 mg/dL (70-99) Calcium Level 8.7 mg/dL (8.5-10.1) Magnesium Level 2.1 mg/dL (1.8-2.4) Micro IMPRESSION: 1. 3.7 x 1.2 cm left lower quadrant body wall collection consistent with abscess underlying the site of drainage. Clear involvement of the peritoneal cavity is not demonstrated by this technique, but is suspected given findings of prior CT. Microbiology 01/26/20 Blood Culture - Preliminary, Resulted NO GROWTH AFTER 2 DAYS Objective Assessment 1. Left lower quadrant abscess wounds had some purulent drainage U/S with ? abscess 2. VANCOMYCIN allergy. 3. Enterocutaneous fistula. 4. Enterovesicular fistula. 5. Malnutrition. 6. History of Clostridium difficile. Plan Plan of Care Cont Meropenem/Daptomycin Consult IR to drain abscess today F/u labs and cults D/w nursing/ABBY Culp MD Jan 30, 2020 11:13
[2020-01-30] MEDS: TPN PER PHARMACY MC PRN (11:25)
--- NOTE | 2020-01-30 11:25 | NUR ---
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 Cisneros. -BMP ordered for AM. R: Change TPN as noted above. Will monitor electrolytes, glucose, and tolerance to TPN. SWAPNIL SANTOS [facility], 01/30/20 [id number]
[2020-01-30 13:13] LABS: ALBUM 2.4 g/dL (2.9-4.4); ALPHA 1 0.3 g/dL (0.0-0.4); ALPHA 2 0.7 g/dL (0.4-1.0); BETA 1.4 g/dL (0.7-1.3); GAMMA 2.9 g/dL (0.4-1.8); PROTEIN TOTAL 7.7 g/dL (6.0-8.5); SPEP AG RATIO 0.5 (0.7-1.7)
[2020-01-30 15:00] VITALS: BP 128/72
[2020-01-30] MEDS: DAPTOMYCIN IV SCH (15:01)
[2020-01-30] MEDS: NORMAL SALINE IV SCH (15:01)
[2020-01-30 19:00] VITALS: BP 113/60
[2020-01-30] MEDS ORDERED: TOTAL PARENTERAL NUTRITION IV SCH (22:00)
[2020-01-30] MEDS ORDERED: DEXTROSE 70% IV SCH (22:00)
[2020-01-30] MEDS ORDERED: [UNRECOGNIZED DRUG - OTHER] IV SCH (22:00)
[2020-01-30] MEDS ORDERED: AMINO ACID IV SCH (22:00)
[2020-01-30 23:00] VITALS: BP 119/66
[2020-01-31] MEDS: MEROPENEM 500 MG in IV NORMAL SALINE 50ML 50 ML IV SCH ×4 (00:02→18:12)
[2020-01-31 03:00] VITALS: BP 94/51
[2020-01-31 07:00] VITALS: BP 123/72
--- NOTE | 2020-01-31 07:54 | PDOC ---
Provider Note Provider Note IR NOTE US performed 8... for possible aspiration of LLQ sub q collection. No collection was identified. There was significant spontaneous drainage of what appeared to be enteric contents via the midline and multiple LLQ enterocutaneous fistulae. The previously seen collection likely decompressed itself. Justicifation of Admission Dx: Justifications for Admission: Justification of Admission Dx: Yes CARRINGTON BURKETT MD Jan 31, 2020 07:54
[2020-01-31] MEDS: PANTOPRAZOLE 40 MG TABLET.DR. PO SCH (08:10)
[2020-01-31] MEDS: SERTRALINE 50 MG TABLET. PO SCH (08:10)
[2020-01-31] MEDS: ZINC OXIDE 20% TOPICAL OINTMENT 28GM TUBE. TP SCH ×2 (08:11→22:29)
[2020-01-31] MEDS: LIDOCAINE 2% TOPICAL JELLY 30GM TUBE. TP SCH ×2 (08:11→22:29)
[2020-01-31] MEDS: HYDROmorphone 2 MG/ML VIAL IVP PRN ×4 (08:12→20:20)
[2020-01-31 09:09] LABS: CREATININE 0.7 mg/dL (0.6-1.0); GFR 101.9; POTASSIUM 4.6 mmol/L (3.5-5.1)
--- NOTE | 2020-01-31 10:01 | NUR ---
SW following. Discussed with RN, cultures pending - IV meropenem and daptomycin. SW will continue to follow.
--- NOTE | 2020-01-31 10:30 | PDOC ---
PROGRESS NOTES Date of Service DATE: 01/31/20 TIME: 10:27 Subjective Subjective feels better.. IR could not aspirate fluid. no abdominal wall abscess noted. afebrile Objective Objective Vital Signs Date Time Temp Pulse Resp B/P (MAP) Pulse Ox O2 Delivery O2 Flow Rate FiO2 01/31/20 09:39 Room Air 01/31/20 07:00 97.6 95 18 123/72 (89) 97 97.6 Intake and Output 01/31/20 07:00 Intake Total 2780 ml Output Total 800 ml Balance 1980 ml Intake Oral 860 ml IV Total 960 ml Other 960 ml Output Urine Total 800 ml # Voids 1 Physical Exam Abdomen: Soft, Other (EC fistula. tender LLQ by groin with several small openings and drainage) Heart: Regular rate, Normal S1, Normal S2 Extremities: Other (trace pedal edema) General: Alert HEENT: Atraumatic Lungs: Clear to auscultation Neuro: Normal speech Psych/Mental Status: Mental status NL Skin: No rashes Assessment Assessment Problems1. Acute kidney injury resolved 2. Nausea and vomiting. resolved 3. Enterocutaneous fistula. 4. Enterovesical fistula. 5. Chronic abdominal pain due to adhesions. 6. Severe protein-calorie malnutrition. LLQ abdominal wall tenderness. suspect more EC fistulas Medical Problems: (1) Abdominal wall fistula Status: Acute Plan Plan of Care continue TPN continue iv meropenem and daptomycin analgesics prn Comment Review of Relevant I have reviewed the following items lucila (where applicable) has been applied. Labs Laboratory Tests Test 01/30/20 07:15 01/31/20 07:08 White Blood Count 6.0 x10^3/uL (4.0-11.0) Red Blood Count 3.29 x10^6/uL (3.50-5.40) Hemoglobin 9.2 g/dL (12.0-15.5) Hematocrit 28.5 % (36.0-47.0) Mean Corpuscular Volume 87 fL (79-100) Mean Corpuscular Hemoglobin 28 pg (25-35) Mean Corpuscular Hemoglobin Concent 32 g/dL (31-37) Red Cell Distribution Width 17.9 % (11.5-14.5) Platelet Count 312 x10^3/uL (140-400) Neutrophils (%) (Auto) 72 % (31-73) Lymphocytes (%) (Auto) 15 % (24-48) Monocytes (%) (Auto) 8 % (0-9) Eosinophils (%) (Auto) 4 % (0-3) Basophils (%) (Auto) 1 % (0-3) Neutrophils # (Auto) 4.3 x10^3/uL (1.8-7.7) Lymphocytes # (Auto) 0.9 x10^3/uL (1.0-4.8) Monocytes # (Auto) 0.5 x10^3/uL (0.0-1.1) Eosinophils # (Auto) 0.2 x10^3/uL (0.0-0.7) Basophils # (Auto) 0.1 x10^3/uL (0.0-0.2) Sodium Level 147 mmol/L (136-145) 146 mmol/L (136-145) Potassium Level 4.6 mmol/L (3.5-5.1) 4.6 mmol/L (3.5-5.1) Chloride Level 111 mmol/L (98-107) 110 mmol/L (98-107) Carbon Dioxide Level 32 mmol/L (21-32) 33 mmol/L (21-32) Anion Gap 4 (6-14) 3 (6-14) Blood Urea Nitrogen 23 mg/dL (7-20) 19 mg/dL (7-20) Creatinine 0.5 mg/dL (0.6-1.0) 0.7 mg/dL (0.6-1.0) Estimated GFR (Cockcroft-Gault) 150.3 101.9 Glucose Level 126 mg/dL (70-99) 140 mg/dL (70-99) Calcium Level 8.7 mg/dL (8.5-10.1) 8.0 mg/dL (8.5-10.1) Magnesium Level 2.1 mg/dL (1.8-2.4) Laboratory Tests Test 01/31/20 07:08 Sodium Level 146 mmol/L (136-145) Potassium Level 4.6 mmol/L (3.5-5.1) Chloride Level 110 mmol/L (98-107) Carbon Dioxide Level 33 mmol/L (21-32) Anion Gap 3 (6-14) Blood Urea Nitrogen 19 mg/dL (7-20) Creatinine 0.7 mg/dL (0.6-1.0) Estimated GFR (Cockcroft-Gault) 101.9 Glucose Level 140 mg/dL (70-99) Calcium Level 8.0 mg/dL (8.5-10.1) Microbiology 01/26/20 Blood Culture - Preliminary, Resulted NO GROWTH AFTER 4 DAYS Medications Current Medications Sodium Chloride 1,000 ml @ 1,000 mls/hr 1X ONCE IV Last administered on 01/26/20at 18:39; Start 01/26/20 at 17:45; Stop 01/26/20 at 18:44; Status DC Ceftriaxone Sodium (Rocephin) 1 gm 1X ONCE IVP Last administered on 01/26/20at 18:39; Start 01/26/20 at 17:45; Stop 01/26/20 at 17:47; Status DC Morphine Sulfate (Morphine Sulfate) 2 mg 1X ONCE IV Last administered on 01/26/20at 18:40; Start 01/26/20 at 18:15; Stop 01/26/20 at 18:16; Status DC Ondansetron HCl (Zofran) 4 mg 1X ONCE IVP Last administered on 01/26/20at 18:39; Start 01/26/20 at 18:15; Stop 01/26/20 at 18:16; Status DC Hydromorphone HCl (Dilaudid) 0.5 mg 1X ONCE IV Last administered on 01/26/20at 19:44; Start 01/26/20 at 18:30; Stop 01/26/20 at 18:36; Status DC Sodium Chloride 1,000 ml @ 1,000 mls/hr 1X ONCE IV ; Start 01/26/20 at 18:30; Stop 01/26/20 at 19:45; Status DC Ondansetron HCl (Zofran) 4 mg 1X ONCE IVP ; Start 01/26/20 at 18:30; Stop 01/26/20 at 19:45; Status DC Ondansetron HCl (Zofran) 4 mg PRN Q8HRS PRN IV NAUSEA/VOMITING 1ST CHOICE Last administered on 01/27/20at 09:27; Start 01/26/20 at 22:00; Stop 01/27/20 at 11:53; Status DC Morphine Sulfate (Morphine Sulfate) 4 mg PRN Q2HR PRN IV SEVERE PAIN 7-10 Last administered on 01/27/20 09:27; Start 01/26/20 at 22:00; Stop 01/27/20 at 11:53; Status DC Sodium Chloride 1,000 ml @ 75 mls/hr [id number] IV Last administered on 01/26/20at 23:55; Start 01/26/20 at 21:53; Stop 01/27/20 at 11:53; Status DC Sodium Chloride 1,000 ml @ 125 mls/hr Q8H IV Last administered on 01/27/20at 12:55; Start 01/27/20 at 11:45; Stop 01/27/20 at 19:19; Status DC Hydromorphone HCl (Dilaudid) 2 mg PRN Q4HRS PRN IVP PAIN Last administered on 01/31/20 08:12; Start 01/27/20 at 11:45 Ondansetron HCl (Zofran) 4 mg PRN Q6HRS PRN IVP NAUSEA/VOMITING Last administered on 01/27/20 22:05; Start 01/27/20 at 11:45 Pantoprazole Sodium (Protonix) 40 mg DAILYAC PO Last administered on 01/31/20 08:10; Start 01/27/20 at 13:00 Lorazepam (Ativan) 0.5 mg PRN Q6HRS PRN PO ANXIETY / AGITATION Last administered on 01/30/20at 07:44; Start 01/27/20 at 11:45 Acetaminophen (Tylenol) 650 mg PRN Q6HRS PRN PO MILD PAIN / TEMP > 100.3'F; Start 01/27/20 at 11:45 Zinc Oxide (Zinc Oxide 20% Topical) 1 sang BID TP Last administered on 01/31/20 08:11; Start 01/27/20 at 12:30 Zolpidem Tartrate (Ambien) 5 mg PRN QHS PRN PO INSOMNIA Last administered on 01/29/20 21:18; Start 01/27/20 at 11:45 Sertraline HCl (Zoloft) 50 mg DAILY PO Last administered on 01/31/20at 08:10; Start 01/27/20 at 13:00 Sodium Chloride 1,000 ml @ 45 mls/hr [id number] IV Last administered on 01/28/20at 20:14; Start 01/27/20 at 22:00; Stop 01/29/20 at 09:56; Status DC Info (Tpn Per Pharmacy) 1 each PRN DAILY PRN MC SEE COMMENTS Last administered on 01/30/20at 11:25; Start 01/27/20 at 12:00 Lidocaine HCl (Xylocaine 2% Topical 30gm Tube) 1 sang BID TP Last administered on 01/31/20at 08:11; Start 01/27/20 at 12:15 Sodium Chloride 120 meq/Sodium Acetate 120 meq/ Potassium Chloride 30 meq/ Potassium Phosphate 22 mmol/ Magnesium Sulfate 24 meq/Calcium Gluconate 10 meq/ Multivitamins 10 ml/Chromium/ Copper/Manganese/ Seleni/Zn 1 ml/ Total Parenteral Nutrition/Amino Acids/Dextrose/ Fat Emulsion Intravenous 1,920 ml @ 80 mls/hr TPN CONT IV Last administered on 01/27/20at 22:21; Start 01/27/20 at 22:00; Stop 01/28/20 at 21:59; Status DC Sodium Chloride 120 meq/Sodium Acetate 120 meq/ Potassium Chloride 50 meq/ Potassium Phosphate 22 mmol/ Magnesium Sulfate 24 meq/Calcium Gluconate 10 meq/ Multivitamins 10 ml/Chromium/ Copper/Manganese/ Seleni/Zn 1 ml/ Total Parenteral Nutrition/Amino Acids/Dextrose/ Fat Emulsion Intravenous 1,920 ml @ 80 mls/hr TPN CONT IV Last administered on 01/28/20at 22:05; Start 01/28/20 at 22:00; Stop 01/29/20 at 21:59; Status DC Sodium Chloride 120 meq/Sodium Acetate 120 meq/ Potassium Chloride 50 meq/ Potassium Phosphate 22 mmol/ Magnesium Sulfate 24 meq/Calcium Gluconate 10 meq/ Multivitamins 10 ml/Chromium/ Copper/Manganese/ Seleni/Zn 1 ml/ Total Parenteral Nutrition/Amino Acids/Dextrose/ Fat Emulsion Intravenous 1,920 ml @ 80 mls/hr TPN CONT IV Last administered on 01/29/20at 21:52; Start 01/29/20 at 22:00; Stop 01/30/20 at 21:59; Status DC Meropenem 500 mg/ Sodium Chloride 50 ml @ 100 mls/hr Q6HRS IV Last administered on 01/31/20at 06:22; Start 8/17/20 at 14:00 Daptomycin 260 mg/ Sodium Chloride 50 ml @ 100 mls/hr Q24H IV Last administered on 01/30/20at 15:01; Start 01/29/20 at 14:00 Sodium Chloride 120 meq/Sodium Acetate 120 meq/ Potassium Chloride 30 meq/ Potassium Phosphate 22 mmol/ Magnesium Sulfate 24 meq/Calcium Gluconate 10 meq/ Multivitamins 10 ml/Chromium/ Copper/Manganese/ Seleni/Zn 1 ml/ Total Parenteral Nutrition/Amino Acids/Dextrose/ Fat Emulsion Intravenous 1,920 ml @ 80 mls/hr TPN CONT IV Last administered on 01/30/20at 22:15; Start 01/30/20 at 22:00; Stop 01/31/20 at 21:59 Active Scripts Active Amlodipine Besylate 5 Mg Tablet 5 Mg PO DAILY Dilaudid (Hydromorphone Hcl) 2 Mg Tablet 1 Tab PO Q6HRS PRN MDD 4 Tablet(s) Pantoprazole Sodium (Pantoprazole Sodium) 40 Mg Tablet.dr 40 Mg PO DAILYAC Tylenol (Acetaminophen) 325 Mg Tablet 650 Mg PO PRN Q6HRS PRN Zinc Oxide 56.7 Gm Oint...g. 1 Sang TP BID Ambien (Zolpidem Tartrate) 5 Mg Tablet 5 Mg PO PRN QHS PRN 30 Days [Tpn Per Pharmacy] 1 EACH Each 1 Each MC PRN DAILY PRN TPN at 85cc/hour Sertraline Hcl 50 Mg Tablet 50 Mg PO DAILY 30 Days Lidocaine 35.44 Gm Oint...g. 1 Sang TP BID Reported Ondansetron Hcl 4 Mg Tablet 4 Mg PO PRN Q6HRS PRN Lorazepam 0.5 Mg Tablet 0.5 Mg PO Q6HRS PRN Vitals/I & O Vital Sign - Last 24 Hours 01/30/20 01/30/20 01/30/20 01/30/20 11:00 12:01 12:31 15:00 Temp 98.4 98.0 98.4 98.0 Pulse 64 60 Resp 18 18 B/P (MAP) 132/76 (94) 128/72 (90) Pulse Ox 99 99 O2 Delivery Room Air Room Air Room Air Room Air 01/30/20 01/30/20 01/30/20 01/30/20 17:11 17:41 19:00 20:05 Temp 98.4 98.4 Pulse 92 Resp 16 B/P (MAP) 113/60 (77) Pulse Ox 99 O2 Delivery Room Air Room Air Room Air Room Air 01/30/20 01/30/20 01/30/20 01/31/20 21:21 21:51 23:00 03:00 Temp 98.4 99.0 98.4 99.0 Pulse 93 103 Resp 20 20 16 16 B/P (MAP) 119/66 (83) 94/51 (65) Pulse Ox 98 98 O2 Delivery Room Air Room Air Room Air Room Air 01/31/20 01/31/20 01/31/20 01/31/20 07:00 07:30 08:12 09:39 Temp 97.6 97.6 Pulse 95 Resp 18 B/P (MAP) 123/72 (89) Pulse Ox 97 O2 Delivery Room Air Room Air Room Air Room Air Intake and Output 01/30/20 01/30/20 01/31/20 15:00 23:00 07:00 Intake Total 120 ml 2660 ml Output Total 800 ml Balance 120 ml 1860 ml Justicifation of Admission Dx: Justifications for Admission: Justification of Admission Dx: Yes Nutrition Consultation Dietary Evaluation: Recommendations by RD: Dietary education by RD, PPN/TPN Comments: REC continue home TPN: 285 g dextrose, 90 g AA, 35 g lipid diet as tolerated Expected Outcomes/Goals: TPN to meet >75% est nutr needs Interpretation of weight loss: >5% in 1 month Malnutrition Findings: Muscle Mass (Severe): Severe Depletion Weight Status: Underweight BENITA LUTZ MD Jan 31, 2020 10:30
[2020-01-31 11:00] VITALS: BP 120/73
--- NOTE | 2020-01-31 11:04 | PDOC ---
Infectious Disease Note Subjective Subjective Better today. Pain controlled. No N/V/SOA/rash Vital Sign Vital Signs Vital Signs Date Time Temp Pulse Resp B/P (MAP) Pulse Ox O2 Delivery O2 Flow Rate FiO2 01/31/20 09:39 Room Air 01/31/20 07:00 97.6 95 18 123/72 (89) 97 97.6 Physical Exam PHYSICAL EXAM GENERAL: She is sitting upright in bed. She looks comfortable. She is in no acute distress. Coop HEENT: Oral cavity, pharynx is clear. She is a little cachectic. NECK: Supple, no JVD. LUNGS: Clear. HEART: S1, S2. Right-sided catheter without signs of complications. ABDOMEN: Nondistended. Left abd side without fluctuation. No tenderness/warmth/erythema. Left groin without purulence EXTREMITIES: No clubbing, cyanosis or gross edema. SKIN: Warm to touch without signs of rash. NEUROLOGIC: She is alert but medicated Labs Lab Laboratory Tests Test 01/31/20 07:08 Sodium Level 146 mmol/L (136-145) Potassium Level 4.6 mmol/L (3.5-5.1) Chloride Level 110 mmol/L (98-107) Carbon Dioxide Level 33 mmol/L (21-32) Anion Gap 3 (6-14) Blood Urea Nitrogen 19 mg/dL (7-20) Creatinine 0.7 mg/dL (0.6-1.0) Estimated GFR (Cockcroft-Gault) 101.9 Glucose Level 140 mg/dL (70-99) Calcium Level 8.0 mg/dL (8.5-10.1) Micro IMPRESSION: 1. 3.7 x 1.2 cm left lower quadrant body wall collection consistent with abscess underlying the site of drainage. Clear involvement of the peritoneal cavity is not demonstrated by this technique, but is suspected given findings of prior CT. Microbiology 01/26/20 Blood Culture - Preliminary, Resulted NO GROWTH AFTER 2 DAYS Objective Assessment 1. Left lower quadrant abscess wounds had some purulent drainage U/S with ? abscess - spontaneous drained no need for U/S 2. VANCOMYCIN allergy. 3. Enterocutaneous fistula. 4. Enterovesicular fistula. 5. Malnutrition. 6. History of Clostridium difficile. Plan Plan of Care Cont Meropenem D/c Daptomycin F/u labs and cults D/w nursing ABBY MOTT MD Jan 31, 2020 11:04
[2020-01-31] MEDS: TPN PER PHARMACY MC PRN (11:47)
--- NOTE | 2020-01-31 11:47 | NUR ---
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 TPN started 01/27/20 B:Pertinent PMH: skilled nursing tpn Height: 5 feet, 4 inches Weight: 43.5 kg LABS: Sodium: 146 Potassium: 4.6 Chloride: 110 Calcium: 8.0 Corrected Calcium: 9.28 Magnesium: 2.1 CO2: 33 SCr: 0.7 Glucose: 140 Albumin: 2.4 AST: 9 ALT: 153 TPN FORMULA: TPN TYPE: Central Continuous AMINO ACIDS: 90 gm DEXTROSE: 285 gm LIPIDS: 35 gm SODIUM CHLORIDE: 120 mEq SODIUM ACETATE: 120 mEq POTASSIUM CHLORIDE: 30 mEq POTASSIUM PHOSPHATE: 22 mmol MAGNESIUM: 24 mEq CALCIUM: 10 mEq MULTIPLE VITAMIN: 10 ml TRACE ELEMENTS: 1 ml(s) TPN PLAN: No changes to TPN. R: Continue same TPN formula. Will monitor electrolytes, glucose, and tolerance to TPN. SWAPNIL SANTOS [facility] [place], 01/31/20 1142
[2020-01-31 15:00] VITALS: BP 138/72
[2020-01-31 19:00] VITALS: BP 131/72
[2020-01-31] MEDS ORDERED: [UNRECOGNIZED DRUG - OTHER] IV SCH (22:00)
[2020-01-31] MEDS ORDERED: DEXTROSE 70% IV SCH (22:00)
[2020-01-31] MEDS ORDERED: AMINO ACID IV SCH (22:00)
[2020-01-31] MEDS ORDERED: TOTAL PARENTERAL NUTRITION IV SCH (22:00)
[2020-01-31 23:00] VITALS: BP 137/74
[2020-02-01] MEDS: HYDROmorphone 2 MG/ML VIAL IVP PRN ×6 (00:21→20:38)
[2020-02-01] MEDS: MEROPENEM 500 MG in IV NORMAL SALINE 50ML 50 ML IV SCH ×4 (00:21→18:03)
[2020-02-01 03:00] VITALS: BP 129/69
[2020-02-01 07:00] VITALS: BP 121/56
[2020-02-01] MEDS: PANTOPRAZOLE 40 MG TABLET.DR. PO SCH (08:19)
[2020-02-01] MEDS: SERTRALINE 50 MG TABLET. PO SCH (08:19)
[2020-02-01] MEDS: LIDOCAINE 2% TOPICAL JELLY 30GM TUBE. TP SCH ×2 (08:20→22:08)
[2020-02-01] MEDS: ZINC OXIDE 20% TOPICAL OINTMENT 28GM TUBE. TP SCH ×2 (08:20→22:08)
--- NOTE | 2020-02-01 09:54 | NUR ---
SW following. Discussed with RN, pt on IV meropenem, requesting STACIE drain. SW will continue to follow.
[2020-02-01 11:00] VITALS: BP 138/86
--- NOTE | 2020-02-01 11:19 | PDOC ---
Infectious Disease Note Subjective Subjective Better today. Pain controlled. No N/V/SOA/rash Vital Sign Vital Signs Vital Signs Date Time Temp Pulse Resp B/P (MAP) Pulse Ox O2 Delivery O2 Flow Rate FiO2 02/01/20 11:00 98.2 86 18 138/86 (103) 100 Room Air 98.2 Physical Exam PHYSICAL EXAM GENERAL: She is sitting upright in bed. She looks comfortable. She is in no acute distress. Coop HEENT: Oral cavity, pharynx is clear. She is a little cachectic. NECK: Supple, no JVD. LUNGS: Clear. HEART: S1, S2. Right-sided catheter without signs of complications. ABDOMEN: Nondistended. Left abd side without fluctuation. No tenderness/warmth/erythema. Left groin with trace purulence on palpation EXTREMITIES: No clubbing, cyanosis mayra to 1 edema. SKIN: Warm to touch without signs of rash. NEUROLOGIC: She is alert but medicated Labs Micro IMPRESSION: 1. 3.7 x 1.2 cm left lower quadrant body wall collection consistent with abscess underlying the site of drainage. Clear involvement of the peritoneal cavity is not demonstrated by this technique, but is suspected given findings of prior CT. Microbiology 01/26/20 Blood Culture - Preliminary, Resulted NO GROWTH AFTER 2 DAYS Objective Assessment 1. Left lower quadrant abscess wounds had some purulent drainage U/S with ? abscess - spontaneous drained no need for U/S 2. VANCOMYCIN allergy. 3. Enterocutaneous fistula. 4. Enterovesicular fistula. 5. Malnutrition. 6. History of Clostridium difficile. Plan Plan of Care Cont Meropenem D/c Daptomycin 01/30 F/u labs and cults D/w nursing ABBY MOTT MD Feb 01, 2020 11:19
--- NOTE | 2020-02-01 11:44 | PDOC ---
PROGRESS NOTES Date of Service DATE: 02/01/20 TIME: 11:41 Subjective Subjective notes bilateral edema in feet. will order iv lasix. feels better. Objective Objective Vital Signs Date Time Temp Pulse Resp B/P (MAP) Pulse Ox O2 Delivery O2 Flow Rate FiO2 02/01/20 11:00 98.2 86 18 138/86 (103) 100 Room Air 98.2 Intake and Output 02/01/20 07:00 Intake Total 3040 ml Output Total 500 ml Balance 2540 ml Intake Oral 1120 ml IV Total 960 ml Other 960 ml Output Urine Total 500 ml # Voids 3 Physical Exam Abdomen: Soft, Other (EC fistula. several openings LLQ above groin with draining fistulas) Heart: Regular rate, Normal S1, Normal S2 Extremities: Other (1 plus bipedal edema) General: Alert HEENT: Atraumatic Lungs: Clear to auscultation Neuro: Normal speech Psych/Mental Status: Mental status NL Skin: No rashes Assessment Assessment Problems1. Acute kidney injury resolved 2. Nausea and vomiting. resolved 3. Enterocutaneous fistula. 4. Enterovesical fistula. 5. Chronic abdominal pain due to adhesions. 6. Severe protein-calorie malnutrition. several EC fistulas openings LLQ abdomen above groin bilateral pedal edema Medical Problems: (1) Abdominal wall fistula Status: Acute Plan Plan of Care iv lasix today continue iv meropenem continue TPN labs tomorrow analgesics prn Comment Review of Relevant I have reviewed the following items lucila (where applicable) has been applied. Labs Laboratory Tests Test 01/31/20 07:08 Sodium Level 146 mmol/L (136-145) Potassium Level 4.6 mmol/L (3.5-5.1) Chloride Level 110 mmol/L (98-107) Carbon Dioxide Level 33 mmol/L (21-32) Anion Gap 3 (6-14) Blood Urea Nitrogen 19 mg/dL (7-20) Creatinine 0.7 mg/dL (0.6-1.0) Estimated GFR (Cockcroft-Gault) 101.9 Glucose Level 140 mg/dL (70-99) Calcium Level 8.0 mg/dL (8.5-10.1) Microbiology 01/26/20 Blood Culture - Final, Complete NO GROWTH AFTER 5 DAYS Medications Current Medications Sodium Chloride 1,000 ml @ 1,000 mls/hr 1X ONCE IV Last administered on 01/26/20at 18:39; Start 01/26/20 at 17:45; Stop 01/26/20 at 18:44; Status DC Ceftriaxone Sodium (Rocephin) 1 gm 1X ONCE IVP Last administered on 01/26/20at 18:39; Start 01/26/20 at 17:45; Stop 01/26/20 at 17:47; Status DC Morphine Sulfate (Morphine Sulfate) 2 mg 1X ONCE IV Last administered on 01/26/20at 18:40; Start 01/26/20 at 18:15; Stop 01/26/20 at 18:16; Status DC Ondansetron HCl (Zofran) 4 mg 1X ONCE IVP Last administered on 01/26/20at 18:39; Start 01/26/20 at 18:15; Stop 01/26/20 at 18:16; Status DC Hydromorphone HCl (Dilaudid) 0.5 mg 1X ONCE IV Last administered on 01/26/20at 19:44; Start 01/26/20 at 18:30; Stop 01/26/20 at 18:36; Status DC Sodium Chloride 1,000 ml @ 1,000 mls/hr 1X ONCE IV ; Start 01/26/20 at 18:30; Stop 01/26/20 at 19:45; Status DC Ondansetron HCl (Zofran) 4 mg 1X ONCE IVP ; Start 01/26/20 at 18:30; Stop 01/26/20 at 19:45; Status DC Ondansetron HCl (Zofran) 4 mg PRN Q8HRS PRN IV NAUSEA/VOMITING 1ST CHOICE Last administered on 01/27/20at 09:27; Start 01/26/20 at 22:00; Stop 01/27/20 at 11:53; Status DC Morphine Sulfate (Morphine Sulfate) 4 mg PRN Q2HR PRN IV SEVERE PAIN 7-10 Last administered on 01/27/20at 09:27; Start 01/26/20 at 22:00; Stop 01/27/20 at 11:53; Status DC Sodium Chloride 1,000 ml @ 75 mls/hr [id number] IV Last administered on 01/26/20at 23:55; Start 01/26/20 at 21:53; Stop 01/27/20 at 11:53; Status DC Sodium Chloride 1,000 ml @ 125 mls/hr Q8H IV Last administered on 01/27/20 12:55; Start 01/27/20 at 11:45; Stop 01/27/20 at 19:19; Status DC Hydromorphone HCl (Dilaudid) 2 mg PRN Q4HRS PRN IVP PAIN Last administered on 02/01/20 08:19; Start 01/27/20 at 11:45 Ondansetron HCl (Zofran) 4 mg PRN Q6HRS PRN IVP NAUSEA/VOMITING Last administered on 01/27/20 22:05; Start 01/27/20 at 11:45 Pantoprazole Sodium (Protonix) 40 mg DAILYAC PO Last administered on 02/01/20 08:19; Start 01/27/20 at 13:00 Lorazepam (Ativan) 0.5 mg PRN Q6HRS PRN PO ANXIETY / AGITATION Last administered on 01/30/20at 07:44; Start 01/27/20 at 11:45 Acetaminophen (Tylenol) 650 mg PRN Q6HRS PRN PO MILD PAIN / TEMP > 100.3'F; Start 01/27/20 at 11:45 Zinc Oxide (Zinc Oxide 20% Topical) 1 sang BID TP Last administered on 02/01/20 08:20; Start 01/27/20 at 12:30 Zolpidem Tartrate (Ambien) 5 mg PRN QHS PRN PO INSOMNIA Last administered on 01/29/20 21:18; Start 01/27/20 at 11:45 Sertraline HCl (Zoloft) 50 mg DAILY PO Last administered on 02/01/20 08:19; Start 01/27/20 at 13:00 Sodium Chloride 1,000 ml @ 45 mls/hr [id number] IV Last administered on 01/28/20at 20:14; Start 01/27/20 at 22:00; Stop 01/29/20 at 09:56; Status DC Info (Tpn Per Pharmacy) 1 each PRN DAILY PRN MC SEE COMMENTS Last administered on 01/31/20at 11:47; Start 01/27/20 at 12:00 Lidocaine HCl (Xylocaine 2% Topical 30gm Tube) 1 sang BID TP Last administered on 8/20/20at 08:20; Start 01/27/20 at 12:15 Sodium Chloride 120 meq/Sodium Acetate 120 meq/ Potassium Chloride 30 meq/ Potassium Phosphate 22 mmol/ Magnesium Sulfate 24 meq/Calcium Gluconate 10 meq/ Multivitamins 10 ml/Chromium/ Copper/Manganese/ Seleni/Zn 1 ml/ Total Parenteral Nutrition/Amino Acids/Dextrose/ Fat Emulsion Intravenous 1,920 ml @ 80 mls/hr TPN CONT IV Last administered on 01/27/20at 22:21; Start 01/27/20 at 22:00; Stop 01/28/20 at 21:59; Status DC Sodium Chloride 120 meq/Sodium Acetate 120 meq/ Potassium Chloride 50 meq/ Potassium Phosphate 22 mmol/ Magnesium Sulfate 24 meq/Calcium Gluconate 10 meq/ Multivitamins 10 ml/Chromium/ Copper/Manganese/ Seleni/Zn 1 ml/ Total Parenteral Nutrition/Amino Acids/Dextrose/ Fat Emulsion Intravenous 1,920 ml @ 80 mls/hr TPN CONT IV Last administered on 01/28/20at 22:05; Start 01/28/20 at 22:00; Stop 01/29/20 at 21:59; Status DC Sodium Chloride 120 meq/Sodium Acetate 120 meq/ Potassium Chloride 50 meq/ Potassium Phosphate 22 mmol/ Magnesium Sulfate 24 meq/Calcium Gluconate 10 meq/ Multivitamins 10 ml/Chromium/ Copper/Manganese/ Seleni/Zn 1 ml/ Total Parenteral Nutrition/Amino Acids/Dextrose/ Fat Emulsion Intravenous 1,920 ml @ 80 mls/hr TPN CONT IV Last administered on 01/29/20at 21:52; Start 01/29/20 at 22:00; Stop 01/30/20 at 21:59; Status DC Meropenem 500 mg/ Sodium Chloride 50 ml @ 100 mls/hr Q6HRS IV Last administered on 02/01/20at 06:32; Start 01/29/20 at 14:00 Daptomycin 260 mg/ Sodium Chloride 50 ml @ 100 mls/hr Q24H IV Last administered on 01/30/20at 15:01; Start 01/29/20 at 14:00; Stop 01/31/20 at 11:04; Status DC Sodium Chloride 120 meq/Sodium Acetate 120 meq/ Potassium Chloride 30 meq/ Potassium Phosphate 22 mmol/ Magnesium Sulfate 24 meq/Calcium Gluconate 10 meq/ Multivitamins 10 ml/Chromium/ Copper/Manganese/ Seleni/Zn 1 ml/ Total Parenteral Nutrition/Amino Acids/Dextrose/ Fat Emulsion Intravenous 1,920 ml @ 80 mls/hr TPN CONT IV Last administered on 01/30/20at 22:15; Start 01/30/20 at 22:00; Stop 01/31/20 at 21:59; Status DC Sodium Chloride 120 meq/Sodium Acetate 120 meq/ Potassium Chloride 30 meq/ Potas sium Phosphate 22 mmol/ Magnesium Sulfate 24 meq/Calcium Gluconate 10 meq/ Multivitamins 10 ml/Chromium/ Copper/Manganese/ Seleni/Zn 1 ml/ Total Parenteral Nutrition/Amino Acids/Dextrose/ Fat Emulsion Intravenous 1,920 ml @ 80 mls/hr TPN CONT IV Last administered on 01/31/20at 22:29; Start 01/31/20 at 22:00; Stop 02/01/20 at 21:59 Active Scripts Active Amlodipine Besylate 5 Mg Tablet 5 Mg PO DAILY Dilaudid (Hydromorphone Hcl) 2 Mg Tablet 1 Tab PO Q6HRS PRN MDD 4 Tablet(s) Pantoprazole Sodium (Pantoprazole Sodium) 40 Mg Tablet.dr 40 Mg PO DAILYAC Tylenol (Acetaminophen) 325 Mg Tablet 650 Mg PO PRN Q6HRS PRN Zinc Oxide 56.7 Gm Oint...g. 1 Sang TP BID Ambien (Zolpidem Tartrate) 5 Mg Tablet 5 Mg PO PRN QHS PRN 30 Days [Tpn Per Pharmacy] 1 EACH Each 1 Each MC PRN DAILY PRN TPN at 85cc/hour Sertraline Hcl 50 Mg Tablet 50 Mg PO DAILY 30 Days Lidocaine 35.44 Gm Oint...g. 1 Sang TP BID Reported Ondansetron Hcl 4 Mg Tablet 4 Mg PO PRN Q6HRS PRN Lorazepam 0.5 Mg Tablet 0.5 Mg PO Q6HRS PRN Vitals/I & O Vital Sign - Last 24 Hours 01/31/20 01/31/20 01/31/20 01/31/20 12:08 15:00 16:11 19:00 Temp 97.6 98.4 97.6 98.4 Pulse 89 98 Resp 18 18 B/P (MAP) 138/72 (94) 131/72 (91) Pulse Ox 100 96 O2 Delivery Room Air Room Air Room Air Room Air 01/31/20 01/31/20 01/31/20 01/31/20 20:00 20:20 20:50 23:00 Temp 98.6 98.6 Pulse 92 Resp 20 20 18 B/P (MAP) 137/74 (95) Pulse Ox 99 O2 Delivery Room Air Room Air Room Air Room Air 02/01/20 02/01/20 02/01/20 02/01/20 00:21 00:51 03:00 04:31 Temp 97.7 97.7 Pulse 81 Resp 20 20 18 20 B/P (MAP) 129/69 (89) Pulse Ox 99 O2 Delivery Room Air Room Air Room Air Room Air 02/01/20 02/01/20 02/01/20 02/01/20 05:01 07:00 08:00 08:19 Temp 97.7 97.7 Pulse 82 Resp 20 18 B/P (MAP) 121/56 (77) Pulse Ox 100 O2 Delivery Room Air Room Air Room Air Room Air 02/01/20 11:00 Temp 98.2 98.2 Pulse 86 Resp 18 B/P (MAP) 138/86 (103) Pulse Ox 100 O2 Delivery Room Air Intake and Output 01/31/20 01/31/20 02/01/20 15:00 23:00 07:00 Intake Total 500 ml 260 ml 2280 ml Output Total 500 ml Balance 500 ml -240 ml 2280 ml Justicifation of Admission Dx: Justifications for Admission: Justification of Admission Dx: Yes Nutrition Consultation Dietary Evaluation: Recommendations by RD: Dietary education by RD, PPN/TPN Comments: REC continue home TPN: 285 g dextrose, 90 g AA, 35 g lipid diet as tolerated Expected Outcomes/Goals: TPN to meet >75% est nutr needs Interpretation of weight loss: >5% in 1 month Malnutrition Findings: Muscle Mass (Severe): Severe Depletion Weight Status: Underweight BENITA LUTZ MD Feb 01, 2020 11:43
[2020-02-01] MEDS ORDERED: FUROSEMIDE 20 MG/2 ML VIAL. IVP ONE (12:00)
[2020-02-01] MEDS: TPN PER PHARMACY MC PRN (12:18)
--- NOTE | 2020-02-01 12:18 | NUR ---
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 TPN started 01/27/20 B:Pertinent PMH: usp tpn Height: 5 feet, 4 inches Weight: 43.5 kg Current diet: LABS: Sodium: 146 Potassium: 4.6 Chloride: 110 Calcium: 8.0 Corrected Calcium: 9.28 Magnesium: 2.1 CO2: 33 SCr: 0.7 Glucose: 140 Albumin: 2.4 AST: 9 ALT: 153 TPN FORMULA: TPN TYPE: Central Continuous AMINO ACIDS: 90 gm DEXTROSE: 285 gm LIPIDS: 35 gm SODIUM CHLORIDE: 120 mEq SODIUM ACETATE: 120 mEq POTASSIUM CHLORIDE: 30 mEq POTASSIUM PHOSPHATE: 22 mmol MAGNESIUM: 24 mEq CALCIUM: 10 mEq MULTIPLE VITAMIN: 10 ml TRACE ELEMENTS: 1 ml(s) TPN PLAN: No changes to TPN. -BMP and Magnesium in AM. R: Continue same TPN formula. Will monitor electrolytes, glucose, and tolerance to TPN. [facility], 02/01/20 [id number]
[2020-02-01 15:00] VITALS: BP 129/84
[2020-02-01 19:00] VITALS: BP 123/51
[2020-02-01] MEDS ORDERED: AMINO ACID IV SCH (22:00)
[2020-02-01] MEDS ORDERED: DEXTROSE 70% IV SCH (22:00)
[2020-02-01] MEDS ORDERED: TOTAL PARENTERAL NUTRITION IV SCH (22:00)
[2020-02-01] MEDS ORDERED: [UNRECOGNIZED DRUG - OTHER] IV SCH (22:00)
[2020-02-01 23:59] VITALS: BP 148/78
[2020-02-02] MEDS: MEROPENEM 500 MG in IV NORMAL SALINE 50ML 50 ML IV SCH ×2 (00:14→05:19)
[2020-02-02] MEDS: HYDROmorphone 2 MG/ML VIAL IVP PRN ×6 (00:43→22:04)
[2020-02-02] MEDS: LORazepam 0.5 MG TABLET PO PRN ×2 (01:11→21:19)
[2020-02-02 03:50] VITALS: BP 130/55
[2020-02-02] MEDS: PANTOPRAZOLE 40 MG TABLET.DR. PO SCH (04:51)
[2020-02-02 05:23] LABS: BASO # 0.1 x10^3/uL (0.0-0.2); BASO % 1 % (0-3); EOS # 0.3 x10^3/uL (0.0-0.7); EOS % 5 % (0-3); HEMATOCRIT 23.1 % (36.0-47.0); HEMOGLOBIN 7.6 g/dL (12.0-15.5); LYMPH # 0.9 x10^3/uL (1.0-4.8); LYMPH % 16 % (24-48); MEAN CORPUSCULAR HEMOGLOBIN 28 pg (25-35); MEAN CORPUSCULAR HGB CONC 33 g/dL (31-37); MEAN CORPUSCULAR VOLUME 85 fL (79-100); MONO # 0.4 x10^3/uL (0.0-1.1); MONO % 6 % (0-9); NEUT # 4.3 x10^3/uL (1.8-7.7); NEUT % 73 % (31-73); PLATELET COUNT 258 x10^3/uL (140-400); RED BLOOD COUNT 2.72 x10^6/uL (3.50-5.40); RED CELL DISTRIBUTION WIDTH 18.5 % (11.5-14.5); WHITE BLOOD COUNT 5.9 x10^3/uL (4.0-11.0)
[2020-02-02 05:38] LABS: CALCIUM 8.2 mg/dL (8.5-10.1); CREATININE 0.5 mg/dL (0.6-1.0); GFR 150.3; MAGNESIUM 2.1 mg/dL (1.8-2.4); POTASSIUM 4.4 mmol/L (3.5-5.1)
[2020-02-02 07:00] VITALS: BP 128/74
[2020-02-02] MEDS: ZINC OXIDE 20% TOPICAL OINTMENT 28GM TUBE. TP SCH ×2 (09:00→21:20)
[2020-02-02] MEDS: LIDOCAINE 2% TOPICAL JELLY 30GM TUBE. TP SCH ×2 (09:00→21:20)
[2020-02-02] MEDS: SERTRALINE 50 MG TABLET. PO SCH (09:17)
--- NOTE | 2020-02-02 09:41 | NUR ---
CLARICE following. Discussed with RN, pt on regular diet, TPN at home, IV abx. CLARICE will continue to follow. Addendum: 02/02/20 at 1557 by DEYANIRA ONEIL CLARICE faxed clinicals to [facility] for anticipated discharge home tomorrow (02/03/2020). Discharge orders to be faxed at discharge. Pt added to weekend discharge list.
--- NOTE | 2020-02-02 10:13 | PDOC ---
PROGRESS NOTES Date of Service DATE: 02/02/20 TIME: 10:10 Subjective Subjective feels better. lab reviewed. more comfortable. discussed with dr. Almanza Objective Objective Vital Signs Date Time Temp Pulse Resp B/P (MAP) Pulse Ox O2 Delivery O2 Flow Rate FiO2 02/02/20 10:00 16 Room Air 02/02/20 07:00 98.0 71 128/74 (92) 98 98.0 Intake and Output 02/02/20 07:00 Intake Total 900 ml Balance 900 ml Intake Oral 900 ml # Voids 2 Physical Exam Abdomen: Soft, Other (EC fistulas) Heart: Regular rate, Normal S1, Normal S2 Extremities: Other (1 plus bipedal edema) General: Alert HEENT: Atraumatic Lungs: Clear to auscultation Neuro: Normal speech Psych/Mental Status: Mental status NL Skin: No rashes Assessment Assessment Problems1. Acute kidney injury resolved 2. Nausea and vomiting. resolved 3. Enterocutaneous fistula. 4. Enterovesical fistula. 5. Chronic abdominal pain due to adhesions. 6. Severe protein-calorie malnutrition. several EC fistulas openings LLQ abdomen above groin bilateral pedal edema Medical Problems: (1) Abdominal wall fistula Status: Acute Plan Plan of Care continue iv meropenem continue TPN IV lasix today lab tomorrow anticipate dismissal tomorrow with home health Comment Review of Relevant I have reviewed the following items lucila (where applicable) has been applied. Labs Laboratory Tests Test 02/02/20 05:00 White Blood Count 5.9 x10^3/uL (4.0-11.0) Red Blood Count 2.72 x10^6/uL (3.50-5.40) Hemoglobin 7.6 g/dL (12.0-15.5) Hematocrit 23.1 % (36.0-47.0) Mean Corpuscular Volume 85 fL (79-100) Mean Corpuscular Hemoglobin 28 pg (25-35) Mean Corpuscular Hemoglobin Concent 33 g/dL (31-37) Red Cell Distribution Width 18.5 % (11.5-14.5) Platelet Count 258 x10^3/uL (140-400) Neutrophils (%) (Auto) 73 % (31-73) Lymphocytes (%) (Auto) 16 % (24-48) Monocytes (%) (Auto) 6 % (0-9) Eosinophils (%) (Auto) 5 % (0-3) Basophils (%) (Auto) 1 % (0-3) Neutrophils # (Auto) 4.3 x10^3/uL (1.8-7.7) Lymphocytes # (Auto) 0.9 x10^3/uL (1.0-4.8) Monocytes # (Auto) 0.4 x10^3/uL (0.0-1.1) Eosinophils # (Auto) 0.3 x10^3/uL (0.0-0.7) Basophils # (Auto) 0.1 x10^3/uL (0.0-0.2) Sodium Level 142 mmol/L (136-145) Potassium Level 4.4 mmol/L (3.5-5.1) Chloride Level 106 mmol/L (98-107) Carbon Dioxide Level 36 mmol/L (21-32) Anion Gap 0 (6-14) Blood Urea Nitrogen 16 mg/dL (7-20) Creatinine 0.5 mg/dL (0.6-1.0) Estimated GFR (Cockcroft-Gault) 150.3 Glucose Level 100 mg/dL (70-99) Calcium Level 8.2 mg/dL (8.5-10.1) Magnesium Level 2.1 mg/dL (1.8-2.4) Laboratory Tests Test 02/02/20 05:00 White Blood Count 5.9 x10^3/uL (4.0-11.0) Red Blood Count 2.72 x10^6/uL (3.50-5.40) Hemoglobin 7.6 g/dL (12.0-15.5) Hematocrit 23.1 % (36.0-47.0) Mean Corpuscular Volume 85 fL (79-100) Mean Corpuscular Hemoglobin 28 pg (25-35) Mean Corpuscular Hemoglobin Concent 33 g/dL (31-37) Red Cell Distribution Width 18.5 % (11.5-14.5) Platelet Count 258 x10^3/uL (140-400) Neutrophils (%) (Auto) 73 % (31-73) Lymphocytes (%) (Auto) 16 % (24-48) Monocytes (%) (Auto) 6 % (0-9) Eosinophils (%) (Auto) 5 % (0-3) Basophils (%) (Auto) 1 % (0-3) Neutrophils # (Auto) 4.3 x10^3/uL (1.8-7.7) Lymphocytes # (Auto) 0.9 x10^3/uL (1.0-4.8) Monocytes # (Auto) 0.4 x10^3/uL (0.0-1.1) Eosinophils # (Auto) 0.3 x10^3/uL (0.0-0.7) Basophils # (Auto) 0.1 x10^3/uL (0.0-0.2) Sodium Level 142 mmol/L (136-145) Potassium Level 4.4 mmol/L (3.5-5.1) Chloride Level 106 mmol/L (98-107) Carbon Dioxide Level 36 mmol/L (21-32) Anion Gap 0 (6-14) Blood Urea Nitrogen 16 mg/dL (7-20) Creatinine 0.5 mg/dL (0.6-1.0) Estimated GFR (Cockcroft-Gault) 150.3 Glucose Level 100 mg/dL (70-99) Calcium Level 8.2 mg/dL (8.5-10.1) Magnesium Level 2.1 mg/dL (1.8-2.4) Microbiology 01/26/20 Blood Culture - Final, Complete NO GROWTH AFTER 5 DAYS Medications Current Medications Sodium Chloride 1,000 ml @ 1,000 mls/hr 1X ONCE IV Last administered on 01/26/20at 18:39; Start 01/26/20 at 17:45; Stop 01/26/20 at 18:44; Status DC Ceftriaxone Sodium (Rocephin) 1 gm 1X ONCE IVP Last administered on 01/26/20at 18:39; Start 01/26/20 at 17:45; Stop 01/26/20 at 17:47; Status DC Morphine Sulfate (Morphine Sulfate) 2 mg 1X ONCE IV Last administered on 01/26/20at 18:40; Start 01/26/20 at 18:15; Stop 01/26/20 at 18:16; Status DC Ondansetron HCl (Zofran) 4 mg 1X ONCE IVP Last administered on 01/26/20at 18:39; Start 01/26/20 at 18:15; Stop 01/26/20 at 18:16; Status DC Hydromorphone HCl (Dilaudid) 0.5 mg 1X ONCE IV Last administered on 01/26/20at 19:44; Start 01/26/20 at 18:30; Stop 01/26/20 at 18:36; Status DC Sodium Chloride 1,000 ml @ 1,000 mls/hr 1X ONCE IV ; Start 01/26/20 at 18:30; Stop 01/26/20 at 19:45; Status DC Ondansetron HCl (Zofran) 4 mg 1X ONCE IVP ; Start 01/26/20 at 18:30; Stop at 19:45; Status DC Ondansetron HCl (Zofran) 4 mg PRN Q8HRS PRN IV NAUSEA/VOMITING 1ST CHOICE Last administered on 01/27/20at 09:27; Start 01/26/20 at 22:00; Stop 01/27/20 at 11:53; Status DC Morphine Sulfate (Morphine Sulfate) 4 mg PRN Q2HR PRN IV SEVERE PAIN 7-10 Last administered on 01/27/20at 09:27; Start 01/26/20 at 22:00; Stop 01/27/20 at 11:53; Status DC Sodium Chloride 1,000 ml @ 75 mls/hr [id number] IV Last administered on 01/26/20at 23:55; Start 01/26/20 at 21:53; Stop 01/27/20 at 11:53; Status DC Sodium Chloride 1,000 ml @ 125 mls/hr Q8H IV Last administered on 01/27/20at 12:55; Start 01/27/20 at 11:45; Stop 01/27/20 at 19:19; Status DC Hydromorphone HCl (Dilaudid) 2 mg PRN Q4HRS PRN IVP PAIN Last administered on 02/02/20at 09:18; Start 01/27/20 at 11:45 Ondansetron HCl (Zofran) 4 mg PRN Q6HRS PRN IVP NAUSEA/VOMITING Last administered on 01/27/20at 22:05; Start 01/27/20 at 11:45 Pantoprazole Sodium (Protonix) 40 mg DAILYAC PO Last administered on 02/02/20at 04:51; Start 01/27/20 at 13:00 Lorazepam (Ativan) 0.5 mg PRN Q6HRS PRN PO ANXIETY / AGITATION Last administered on 02/02/20at 01:11; Start 01/27/20 at 11:45 Acetaminophen (Tylenol) 650 mg PRN Q6HRS PRN PO MILD PAIN / TEMP > 100.3'F; Start 01/27/20 at 11:45 Zinc Oxide (Zinc Oxide 20% Topical) 1 sang BID TP Last administered on 02/02/20at 09:00; Start 01/27/20 at 12:30 Zolpidem Tartrate (Ambien) 5 mg PRN QHS PRN PO INSOMNIA Last administered on 01/29/20at 21:18; Start 01/27/20 at 11:45 Sertraline HCl (Zoloft) 50 mg DAILY PO Last administered on 02/02/20at 09:17; Start 01/27/20 at 13:00 Sodium Chloride 1,000 ml @ 45 mls/hr [id number] IV Last administered on 01/28/20at 20:14; Start 01/27/20 at 22:00; Stop 01/29/20 at 09:56; Status DC Info (Tpn Per Pharmacy) 1 each PRN DAILY PRN MC SEE COMMENTS Last administered on 02/01/20at 12:18; Start 01/27/20 at 12:00 Lidocaine HCl (Xylocaine 2% Topical 30gm Tube) 1 sang BID TP Last administered on 02/02/20at 09:00; Start 01/27/20 at 12:15 Sodium Chloride 120 meq/Sodium Acetate 120 meq/ Potassium Chloride 30 meq/ Potassium Phosphate 22 mmol/ Magnesium Sulfate 24 meq/Calcium Gluconate 10 meq/ Multivitamins 10 ml/Chromium/ Copper/Manganese/ Seleni/Zn 1 ml/ Total Parenteral Nutrition/Amino Acids/Dextrose/ Fat Emulsion Intravenous 1,920 ml @ 80 mls/hr TPN CONT IV Last administered on 01/27/20at 22:21; Start 01/27/20 at 22:00; Stop 01/28/20 at 21:59; Status DC Sodium Chloride 120 meq/Sodium Acetate 120 meq/ Potassium Chloride 50 meq/ Potassium Phosphate 22 mmol/ Magnesium Sulfate 24 meq/Calcium Gluconate 10 meq/ Multivitamins 10 ml/Chromium/ Copper/Manganese/ Seleni/Zn 1 ml/ Total Parenteral Nutrition/Amino Acids/Dextrose/ Fat Emulsion Intravenous 1,920 ml @ 80 mls/hr TPN CONT IV Last administered on 01/28/20at 22:05; Start 01/28/20 at 22:00; Stop 01/29/20 at 21:59; Status DC Sodium Chloride 120 meq/Sodium Acetate 120 meq/ Potassium Chloride 50 meq/ Potassium Phosphate 22 mmol/ Magnesium Sulfate 24 meq/Calcium Gluconate 10 meq/ Multivitamins 10 ml/Chromium/ Copper/Manganese/ Seleni/Zn 1 ml/ Total Parenteral Nutrition/Amino Acids/Dextrose/ Fat Emulsion Intravenous 1,920 ml @ 80 mls/hr TPN CONT IV Last administered on 01/29/20at 21:52; Start 01/29/20 at 22:00; Stop 01/30/20 at 21:59; Status DC Meropenem 500 mg/ Sodium Chloride 50 ml @ 100 mls/hr Q6HRS IV Last administered on 02/02/20at 05:19; Start 01/29/20 at 14:00 Daptomycin 260 mg/ Sodium Chloride 50 ml @ 100 mls/hr Q24H IV Last administered on 01/30/20at 15:01; Start 01/29/20 at 14:00; Stop 01/31/20 at 11:04; Status DC Sodium Chloride 120 meq/Sodium Acetate 120 meq/ Potassium Chloride 30 meq/ Potassium Phosphate 22 mmol/ Magnesium Sulfate 24 meq/Calcium Gluconate 10 meq/ Multivitamins 10 ml/Chromium/ Copper/Manganese/ Seleni/Zn 1 ml/ Total Parenteral Nutrition/Amino Acids/Dextrose/ Fat Emulsion Intravenous 1,920 ml @ 80 mls/hr TPN CONT IV Last administered on 01/30/20at 22:15; Start 01/30/20 at 22:00; Stop 01/31/20 at 21:59; Status DC Sodium Chloride 120 meq/Sodium Acetate 120 meq/ Potassium Chloride 30 meq/ Potassium Phosphate 22 mmol/ Magnesium Sulfate 24 meq/Calcium Gluconate 10 meq/ Multivitamins 10 ml/Chromium/ Copper/Manganese/ Seleni/Zn 1 ml/ Total Parenteral Nutrition/Amino Acids/Dextrose/ Fat Emulsion Intravenous 1,920 ml @ 80 mls/hr TPN CONT IV Last administered on 01/31/20at 22:29; Start 01/31/20 at 22:00; Stop 02/01/20 at 21:59; Status DC Furosemide (Lasix) 20 mg 1X ONCE IVP Last administered on 02/01/20at 12:24; Start 02/01/20 at 12:00; Stop 02/01/20 at 12:01; Status DC Sodium Chloride 120 meq/Sodium Acetate 120 meq/ Potassium Chloride 30 meq/ Potassium Phosphate 22 mmol/ Magnesium Sulfate 24 meq/Calcium Gluconate 10 meq/ Multivitamins 10 ml/Chromium/ Copper/Manganese/ Seleni/Zn 1 ml/ Total Parenteral Nutrition/Amino Acids/Dextrose/ Fat Emulsion Intravenous 1,920 ml @ 80 mls/hr TPN CONT IV Last administered on 02/01/20at 22:01; Start 02/01/20 at 22:00; Stop 02/02/20 at 21:59 Active Scripts Active Amlodipine Besylate 5 Mg Tablet 5 Mg PO DAILY Dilaudid (Hydromorphone Hcl) 2 Mg Tablet 1 Tab PO Q6HRS PRN MDD 4 Tablet(s) Pantoprazole Sodium (Pantoprazole Sodium) 40 Mg Tablet.dr 40 Mg PO DAILYAC Tylenol (Acetaminophen) 325 Mg Tablet 650 Mg PO PRN Q6HRS PRN Zinc Oxide 56.7 Gm Oint...g. 1 Sang TP BID Ambien (Zolpidem Tartrate) 5 Mg Tablet 5 Mg PO PRN QHS PRN 30 Days [Tpn Per Pharmacy] 1 EACH Each 1 Each MC PRN DAILY PRN TPN at 85cc/hour Sertraline Hcl 50 Mg Tablet 50 Mg PO DAILY 30 Days Lidocaine 35.44 Gm Oint...g. 1 Sang TP BID Reported Ondansetron Hcl 4 Mg Tablet 4 Mg PO PRN Q6HRS PRN Lorazepam 0.5 Mg Tablet 0.5 Mg PO Q6HRS PRN Vitals/I & O Vital Sign - Last 24 Hours 02/01/20 02/01/20 02/01/20 02/01/20 11:00 12:24 15:00 17:03 Temp 98.2 98.2 98.2 98.2 Pulse 86 87 Resp 18 18 B/P (MAP) 138/86 (103) 129/84 (99) Pulse Ox 100 100 100 O2 Delivery Room Air Room Air Room Air Room Air 02/01/20 02/01/20 02/01/20 02/01/20 19:00 20:00 20:38 21:08 Temp 98.8 98.8 Pulse 95 Resp 20 B/P (MAP) 123/51 (75) Pulse Ox 100 100 100 O2 Delivery Room Air Room Air Room Air Room Air 02/01/20 02/02/20 02/02/20 02/02/20 23:59 00:43 01:13 03:50 Temp 98.2 98.8 98.2 98.8 Pulse 80 78 Resp 20 B/P (MAP) 148/78 (101) 130/55 (80) Pulse Ox 100 100 100 100 O2 Delivery Room Air Room Air Room Air 02/02/20 02/02/20 02/02/20 02/02/20 04:50 05:20 07:00 09:18 Temp 98.0 98.0 Pulse 71 Resp 16 B/P (MAP) 128/74 (92) Pulse Ox 100 100 98 O2 Delivery Room Air Room Air Room Air Room Air 02/02/20 10:00 Resp 16 O2 Delivery Room Air Intake and Output 02/01/20 02/01/20 02/02/20 15:00 23:00 07:00 Intake Total 780 ml 120 ml Balance 780 ml 120 ml Justicifation of Admission Dx: Justifications for Admission: Justification of Admission Dx: Yes Nutrition Consultation Dietary Evaluation: Recommendations by RD: Dietary education by RD, PPN/TPN Comments: REC continue home TPN: 285 g dextrose, 90 g AA, 35 g lipid diet as tolerated, on regular now per RN Expected Outcomes/Goals: TPN to meet >75% est nutr needs - goal ongoing Interpretation of weight loss: >5% in 1 month Malnutrition Findings: Muscle Mass (Severe): Severe Depletion Weight Status: Underweight BENITA LUTZ MD Feb 02, 2020 10:13
[2020-02-02] MEDS ORDERED: FUROSEMIDE 20 MG/2 ML VIAL. IVP ONE (10:30)
--- NOTE | 2020-02-02 10:51 | PDOC ---
Infectious Disease Note Subjective Subjective Better today. Pain controlled. No N/V/SOA/rash ROS ROS o/w neg Vital Sign Vital Signs Vital Signs Date Time Temp Pulse Resp B/P (MAP) Pulse Ox O2 Delivery O2 Flow Rate FiO2 02/02/20 10:00 16 Room Air 02/02/20 07:00 98.0 71 128/74 (92) 98 98.0 Physical Exam PHYSICAL EXAM GENERAL: She is sitting upright in bed. She looks comfortable. She is in no acute distress. Coop HEENT: Oral cavity, pharynx is clear. She is a little cachectic. NECK: Supple, no JVD. LUNGS: Clear. HEART: S1, S2. Right-sided catheter without signs of complications. ABDOMEN: Nondistended. Left abd side without fluctuation. No tenderness/warmth/erythema. Left groin with trace purulence on palpation EXTREMITIES: No clubbing, cyanosis mayra to 1 edema. SKIN: Warm to touch without signs of rash. NEUROLOGIC: She is alert but medicated Labs Lab Laboratory Tests Test 02/02/20 05:00 White Blood Count 5.9 x10^3/uL (4.0-11.0) Red Blood Count 2.72 x10^6/uL (3.50-5.40) Hemoglobin 7.6 g/dL (12.0-15.5) Hematocrit 23.1 % (36.0-47.0) Mean Corpuscular Volume 85 fL (79-100) Mean Corpuscular Hemoglobin 28 pg (25-35) Mean Corpuscular Hemoglobin Concent 33 g/dL (31-37) Red Cell Distribution Width 18.5 % (11.5-14.5) Platelet Count 258 x10^3/uL (140-400) Neutrophils (%) (Auto) 73 % (31-73) Lymphocytes (%) (Auto) 16 % (24-48) Monocytes (%) (Auto) 6 % (0-9) Eosinophils (%) (Auto) 5 % (0-3) Basophils (%) (Auto) 1 % (0-3) Neutrophils # (Auto) 4.3 x10^3/uL (1.8-7.7) Lymphocytes # (Auto) 0.9 x10^3/uL (1.0-4.8) Monocytes # (Auto) 0.4 x10^3/uL (0.0-1.1) Eosinophils # (Auto) 0.3 x10^3/uL (0.0-0.7) Basophils # (Auto) 0.1 x10^3/uL (0.0-0.2) Sodium Level 142 mmol/L (136-145) Potassium Level 4.4 mmol/L (3.5-5.1) Chloride Level 106 mmol/L (98-107) Carbon Dioxide Level 36 mmol/L (21-32) Anion Gap 0 (6-14) Blood Urea Nitrogen 16 mg/dL (7-20) Creatinine 0.5 mg/dL (0.6-1.0) Estimated GFR (Cockcroft-Gault) 150.3 Glucose Level 100 mg/dL (70-99) Calcium Level 8.2 mg/dL (8.5-10.1) Magnesium Level 2.1 mg/dL (1.8-2.4) Micro IMPRESSION: 1. 3.7 x 1.2 cm left lower quadrant body wall collection consistent with abscess underlying the site of drainage. Clear involvement of the peritoneal cavity is not demonstrated by this technique, but is suspected given findings of prior CT. Microbiology 01/26/20 Blood Culture - Preliminary, Resulted NO GROWTH AFTER 2 DAYS Objective Assessment 1. Left lower quadrant abscess wounds had some purulent drainage U/S with ? abscess - spontaneous drained no need for U/S 2. VANCOMYCIN allergy. 3. Enterocutaneous fistula. 4. Enterovesicular fistula. 5. Malnutrition. 6. History of Clostridium difficile. Anemia Plan Plan of Care Discont Meropenem D/c Daptomycin 01/30 F/u anemia per Primary F/u labs and cults D/w nursing ABBY MOTT MD Feb 02, 2020 10:51
[2020-02-02 11:00] VITALS: BP 111/76
[2020-02-02] MEDS: TPN PER PHARMACY MC PRN (11:24)
[2020-02-02 15:00] VITALS: BP 149/78
--- NOTE | 2020-02-02 17:03 | NUR ---
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 TPN started 01/27/20 B:Pertinent PMH: senior care tpn Height: 5 feet, 4 inches Weight: 43.5 kg Current diet: LABS: Sodium: 142 Potassium: 4.4 Chloride: 106 Calcium: 8.2 Corrected Calcium: 9.48 Magnesium: 2.1 CO2: 33 SCr: 0.5 Glucose: 100 Albumin: 2.4 AST: 9 ALT: 153 TPN FORMULA: TPN TYPE: Central Continuous AMINO ACIDS: 90 gm DEXTROSE: 285 gm LIPIDS: 35 gm SODIUM CHLORIDE: 120 mEq SODIUM ACETATE: 120 mEq SODIUM PHOSPHATE: mmol POTASSIUM CHLORIDE: 30 mEq POTASSIUM ACETATE: mEq POTASSIUM PHOSPHATE: 22 mmol MAGNESIUM: 24 mEq CALCIUM: 10 mEq INSULIN: units MULTIPLE VITAMIN: 10 ml TRACE ELEMENTS: 1 ml(s) TPN PLAN: No changes to TPN. R: Continue TPN AT 80 ML/HR Will monitor electrolytes, glucose, and tolerance to TPN. [facility], 02/02/20 [id number]
[2020-02-02 19:40] VITALS: BP 164/86
[2020-02-02] MEDS ORDERED: DEXTROSE 70% IV SCH (22:00)
[2020-02-02] MEDS ORDERED: TOTAL PARENTERAL NUTRITION IV SCH (22:00)
[2020-02-02] MEDS ORDERED: AMINO ACID IV SCH (22:00)
[2020-02-02] MEDS ORDERED: [UNRECOGNIZED DRUG - OTHER] IV SCH (22:00)
[2020-02-03 03:00] VITALS: BP 136/64
[2020-02-03] MEDS: HYDROmorphone 2 MG/ML VIAL IVP PRN ×4 (03:18→17:28)
[2020-02-03] MEDS ORDERED: ALTEPLASE 1MG SYRINGE. INT CAT ONE ×2 (06:15→06:30)
[2020-02-03] MEDS: PANTOPRAZOLE 40 MG TABLET.DR. PO SCH (06:20)
[2020-02-03 06:56] LABS: CALCIUM 8.1 mg/dL (8.5-10.1); CREATININE 0.6 mg/dL (0.6-1.0); GFR 121.8; MAGNESIUM 2.1 mg/dL (1.8-2.4); POTASSIUM 4.6 mmol/L (3.5-5.1)
[2020-02-03 07:00] VITALS: BP 94/64
[2020-02-03 07:30] LABS: BASO # 0.1 x10^3/uL (0.0-0.2); BASO % 1 % (0-3); EOS # 0.3 x10^3/uL (0.0-0.7); EOS % 4 % (0-3); HEMATOCRIT 24.8 % (36.0-47.0); LYMPH # 0.9 x10^3/uL (1.0-4.8); LYMPH % 14 % (24-48); MEAN CORPUSCULAR HEMOGLOBIN 28 pg (25-35); MEAN CORPUSCULAR HGB CONC 32 g/dL (31-37); MEAN CORPUSCULAR VOLUME 86 fL (79-100); MONO # 0.4 x10^3/uL (0.0-1.1); MONO % 6 % (0-9); NEUT # 4.9 x10^3/uL (1.8-7.7); NEUT % 75 % (31-73); PLATELET COUNT 271 x10^3/uL (140-400); RED CELL DISTRIBUTION WIDTH 18.9 % (11.5-14.5); WHITE BLOOD COUNT 6.5 x10^3/uL (4.0-11.0)
[2020-02-03] MEDS: SERTRALINE 50 MG TABLET. PO SCH (08:14)
[2020-02-03] MEDS: LIDOCAINE 2% TOPICAL JELLY 30GM TUBE. TP SCH (08:18)
[2020-02-03] MEDS: ZINC OXIDE 20% TOPICAL OINTMENT 28GM TUBE. TP SCH (08:18)
--- NOTE | 2020-02-03 08:44 | PDOC ---
Infectious Disease Note Subjective Subjective Doing ok. a little concerned about going home. Pain controlled. No N/V/SOA/rash Vital Sign Vital Signs Vital Signs Date Time Temp Pulse Resp B/P (MAP) Pulse Ox O2 Delivery O2 Flow Rate FiO2 02/03/20 08:14 Room Air 02/03/20 03:48 18 100 02/03/20 03:00 98.7 90 136/64 (88) 98.7 Physical Exam PHYSICAL EXAM GENERAL: She is sitting upright in bed. She looks comfortable. She is in no acute distress. Coop HEENT: Oral cavity, pharynx is clear. She is a little cachectic. NECK: Supple, no JVD. LUNGS: Clear. HEART: S1, S2. Right-sided catheter without signs of complications. ABDOMEN: Nondistended. Left abd side without fluctuation. No tenderness/warmth/erythema. Left groin with trace purulence on palpation EXTREMITIES: No clubbing, cyanosis mayra to 1 edema -improved. SKIN: Warm to touch without signs of rash. NEUROLOGIC: She is alert but medicated Labs Lab Laboratory Tests Test 02/03/20 06:15 White Blood Count 6.5 x10^3/uL (4.0-11.0) Red Blood Count 2.90 x10^6/uL (3.50-5.40) Hemoglobin 8.0 g/dL (12.0-15.5) Hematocrit 24.8 % (36.0-47.0) Mean Corpuscular Volume 86 fL (79-100) Mean Corpuscular Hemoglobin 28 pg (25-35) Mean Corpuscular Hemoglobin Concent 32 g/dL (31-37) Red Cell Distribution Width 18.9 % (11.5-14.5) Platelet Count 271 x10^3/uL (140-400) Neutrophils (%) (Auto) 75 % (31-73) Lymphocytes (%) (Auto) 14 % (24-48) Monocytes (%) (Auto) 6 % (0-9) Eosinophils (%) (Auto) 4 % (0-3) Basophils (%) (Auto) 1 % (0-3) Neutrophils # (Auto) 4.9 x10^3/uL (1.8-7.7) Lymphocytes # (Auto) 0.9 x10^3/uL (1.0-4.8) Monocytes # (Auto) 0.4 x10^3/uL (0.0-1.1) Eosinophils # (Auto) 0.3 x10^3/uL (0.0-0.7) Basophils # (Auto) 0.1 x10^3/uL (0.0-0.2) Sodium Level 139 mmol/L (136-145) Potassium Level 4.6 mmol/L (3.5-5.1) Chloride Level 105 mmol/L (98-107) Carbon Dioxide Level 34 mmol/L (21-32) Anion Gap 0 (6-14) Blood Urea Nitrogen 19 mg/dL (7-20) Creatinine 0.6 mg/dL (0.6-1.0) Estimated GFR (Cockcroft-Gault) 121.8 Glucose Level 88 mg/dL (70-99) Calcium Level 8.1 mg/dL (8.5-10.1) Magnesium Level 2.1 mg/dL (1.8-2.4) Micro IMPRESSION: 1. 3.7 x 1.2 cm left lower quadrant body wall collection consistent with abscess underlying the site of drainage. Clear involvement of the peritoneal cavity is not demonstrated by this technique, but is suspected given findings of prior CT. Microbiology 01/26/20 Blood Culture - Preliminary, Resulted NO GROWTH AFTER 2 DAYS Objective Assessment 1. Left lower quadrant abscess wounds had some purulent drainage U/S with ? abscess - spontaneous drained no need for U/S 2. VANCOMYCIN allergy. 3. Enterocutaneous fistula. 4. Enterovesicular fistula. 5. Malnutrition. 6. History of Clostridium difficile. Anemia Plan Plan of Care Cont off abx F/u anemia per Primary F/u labs and cults D/w nursing ABBY MOTT MD Feb 03, 2020 08:44
[2020-02-03 11:00] VITALS: BP 92/70
--- NOTE | 2020-02-03 12:20 | PDOC ---
PROGRESS NOTES Date of Service DATE: 02/03/20 TIME: 12:18 Subjective Subjective feels okay. off antibiotics afebrile. hgb 8.0 and she has anemia of chronic disease. hfgb `12 on admission was due to dehydration and decreased with iv hydration. no active bleeding noted. Objective Objective Vital Signs Date Time Temp Pulse Resp B/P (MAP) Pulse Ox O2 Delivery O2 Flow Rate FiO2 02/03/20 11:00 97.9 92 18 92/70 (77) 100 Room Air 97.9 Intake and Output 02/03/20 07:00 Intake Total 450 ml Balance 450 ml Intake Oral 400 ml IV Total 50 ml # Voids 3 Physical Exam Abdomen: Soft, Other (EC fistulas) Heart: Regular rate, Normal S1, Normal S2 Extremities: Other (1 plus bipedal edema) General: Alert HEENT: Atraumatic Lungs: Clear to auscultation Neuro: Normal speech Psych/Mental Status: Mental status NL Skin: No rashes Assessment Assessment Problems1. Acute kidney injury resolved 2. Nausea and vomiting. resolved 3. Enterocutaneous fistula. 4. Enterovesical fistula. 5. Chronic abdominal pain due to adhesions. 6. Severe protein-calorie malnutrition. several EC fistulas openings LLQ abdomen above groin bilateral pedal edema Medical Problems: (1) Abdominal wall fistula Status: Acute Plan Plan of Care dismiss today with home health Comment Review of Relevant I have reviewed the following items lucila (where applicable) has been applied. Labs Laboratory Tests Test 02/02/20 05:00 02/03/20 06:15 White Blood Count 5.9 x10^3/uL (4.0-11.0) 6.5 x10^3/uL (4.0-11.0) Red Blood Count 2.72 x10^6/uL (3.50-5.40) 2.90 x10^6/uL (3.50-5.40) Hemoglobin 7.6 g/dL (12.0-15.5) 8.0 g/dL (12.0-15.5) Hematocrit 23.1 % (36.0-47.0) 24.8 % (36.0-47.0) Mean Corpuscular Volume 85 fL (79-100) 86 fL (79-100) Mean Corpuscular Hemoglobin 28 pg (25-35) 28 pg (25-35) Mean Corpuscular Hemoglobin Concent 33 g/dL (31-37) 32 g/dL (31-37) Red Cell Distribution Width 18.5 % (11.5-14.5) 18.9 % (11.5-14.5) Platelet Count 258 x10^3/uL (140-400) 271 x10^3/uL (140-400) Neutrophils (%) (Auto) 73 % (31-73) 75 % (31-73) Lymphocytes (%) (Auto) 16 % (24-48) 14 % (24-48) Monocytes (%) (Auto) 6 % (0-9) 6 % (0-9) Eosinophils (%) (Auto) 5 % (0-3) 4 % (0-3) Basophils (%) (Auto) 1 % (0-3) 1 % (0-3) Neutrophils # (Auto) 4.3 x10^3/uL (1.8-7.7) 4.9 x10^3/uL (1.8-7.7) Lymphocytes # (Auto) 0.9 x10^3/uL (1.0-4.8) 0.9 x10^3/uL (1.0-4.8) Monocytes # (Auto) 0.4 x10^3/uL (0.0-1.1) 0.4 x10^3/uL (0.0-1.1) Eosinophils # (Auto) 0.3 x10^3/uL (0.0-0.7) 0.3 x10^3/uL (0.0-0.7) Basophils # (Auto) 0.1 x10^3/uL (0.0-0.2) 0.1 x10^3/uL (0.0-0.2) Sodium Level 142 mmol/L (136-145) 139 mmol/L (136-145) Potassium Level 4.4 mmol/L (3.5-5.1) 4.6 mmol/L (3.5-5.1) Chloride Level 106 mmol/L (98-107) 105 mmol/L (98-107) Carbon Dioxide Level 36 mmol/L (21-32) 34 mmol/L (21-32) Anion Gap 0 (6-14) 0 (6-14) Blood Urea Nitrogen 16 mg/dL (7-20) 19 mg/dL (7-20) Creatinine 0.5 mg/dL (0.6-1.0) 0.6 mg/dL (0.6-1.0) Estimated GFR (Cockcroft-Gault) 150.3 121.8 Glucose Level 100 mg/dL (70-99) 88 mg/dL (70-99) Calcium Level 8.2 mg/dL (8.5-10.1) 8.1 mg/dL (8.5-10.1) Magnesium Level 2.1 mg/dL (1.8-2.4) 2.1 mg/dL (1.8-2.4) Laboratory Tests Test 02/03/20 06:15 White Blood Count 6.5 x10^3/uL (4.0-11.0) Red Blood Count 2.90 x10^6/uL (3.50-5.40) Hemoglobin 8.0 g/dL (12.0-15.5) Hematocrit 24.8 % (36.0-47.0) Mean Corpuscular Volume 86 fL (79-100) Mean Corpuscular Hemoglobin 28 pg (25-35) Mean Corpuscular Hemoglobin Concent 32 g/dL (31-37) Red Cell Distribution Width 18.9 % (11.5-14.5) Platelet Count 271 x10^3/uL (140-400) Neutrophils (%) (Auto) 75 % (31-73) Lymphocytes (%) (Auto) 14 % (24-48) Monocytes (%) (Auto) 6 % (0-9) Eosinophils (%) (Auto) 4 % (0-3) Basophils (%) (Auto) 1 % (0-3) Neutrophils # (Auto) 4.9 x10^3/uL (1.8-7.7) Lymphocytes # (Auto) 0.9 x10^3/uL (1.0-4.8) Monocytes # (Auto) 0.4 x10^3/uL (0.0-1.1) Eosinophils # (Auto) 0.3 x10^3/uL (0.0-0.7) Basophils # (Auto) 0.1 x10^3/uL (0.0-0.2) Sodium Level 139 mmol/L (136-145) Potassium Level 4.6 mmol/L (3.5-5.1) Chloride Level 105 mmol/L (98-107) Carbon Dioxide Level 34 mmol/L (21-32) Anion Gap 0 (6-14) Blood Urea Nitrogen 19 mg/dL (7-20) Creatinine 0.6 mg/dL (0.6-1.0) Estimated GFR (Cockcroft-Gault) 121.8 Glucose Level 88 mg/dL (70-99) Calcium Level 8.1 mg/dL (8.5-10.1) Magnesium Level 2.1 mg/dL (1.8-2.4) Microbiology 01/26/20 Blood Culture - Final, Complete NO GROWTH AFTER 5 DAYS Medications Current Medications Sodium Chloride 1,000 ml @ 1,000 mls/hr 1X ONCE IV Last administered on 01/26/20at 18:39; Start 01/26/20 at 17:45; Stop 01/26/20 at 18:44; Status DC Ceftriaxone Sodium (Rocephin) 1 gm 1X ONCE IVP Last administered on 01/26/20at 18:39; Start 01/26/20 at 17:45; Stop 01/26/20 at 17:47; Status DC Morphine Sulfate (Morphine Sulfate) 2 mg 1X ONCE IV Last administered on 01/26/20at 18:40; Start 01/26/20 at 18:15; Stop 01/26/20 at 18:16; Status DC Ondansetron HCl (Zofran) 4 mg 1X ONCE IVP Last administered on 01/26/20at 18:39; Start 01/26/20 at 18:15; Stop 01/26/20 at 18:16; Status DC Hydromorphone HCl (Dilaudid) 0.5 mg 1X ONCE IV Last administered on 01/26/20at 19:44; Start 01/26/20 at 18:30; Stop 01/26/20 at 18:36; Status DC Sodium Chloride 1,000 ml @ 1,000 mls/hr 1X ONCE IV ; Start 01/26/20 at 18:30; Stop 01/26/20 at 19:45; Status DC Ondansetron HCl (Zofran) 4 mg 1X ONCE IVP ; Start 01/26/20 at 18:30; Stop 01/26/20 at 19:45; Status DC Ondansetron HCl (Zofran) 4 mg PRN Q8HRS PRN IV NAUSEA/VOMITING 1ST CHOICE Last administered on 01/27/20 09:27; Start 01/26/20 at 22:00; Stop 01/27/20 at 11:53; Status DC Morphine Sulfate (Morphine Sulfate) 4 mg PRN Q2HR PRN IV SEVERE PAIN 7-10 Last administered on 01/27/20at 09:27; Start 01/26/20 at 22:00; Stop 01/27/20 at 11:53; Status DC Sodium Chloride 1,000 ml @ 75 mls/hr [id number] IV Last administered on 01/26/20at 23:55; Start 01/26/20 at 21:53; Stop 01/27/20 at 11:53; Status DC Sodium Chloride 1,000 ml @ 125 mls/hr Q8H IV Last administered on 01/27/20at 12:55; Start 01/27/20 at 11:45; Stop 01/27/20 at 19:19; Status DC Hydromorphone HCl (Dilaudid) 2 mg PRN Q4HRS PRN IVP PAIN Last administered on 02/03/20 08:14; Start 01/27/20 at 11:45 Ondansetron HCl (Zofran) 4 mg PRN Q6HRS PRN IVP NAUSEA/VOMITING Last administered on 01/27/20at 22:05; Start 01/27/20 at 11:45 Pantoprazole Sodium (Protonix) 40 mg DAILYAC PO Last administered on 02/03/20at 06:20; Start 01/27/20 at 13:00 Lorazepam (Ativan) 0.5 mg PRN Q6HRS PRN PO ANXIETY / AGITATION Last administered on 02/02/20at 21:19; Start 01/27/20 at 11:45 Acetaminophen (Tylenol) 650 mg PRN Q6HRS PRN PO MILD PAIN / TEMP > 100.3'F; Start 01/27/20 at 11:45 Zinc Oxide (Zinc Oxide 20% Topical) 1 sang BID TP Last administered on 02/03/20at 08:18; Start 01/27/20 at 12:30 Zolpidem Tartrate (Ambien) 5 mg PRN QHS PRN PO INSOMNIA Last administered on 01/29/20at 21:18; Start 01/27/20 at 11:45 Sertraline HCl (Zoloft) 50 mg DAILY PO Last administered on 02/03/20at 08:14; Start 01/27/20 at 13:00 Sodium Chloride 1,000 ml @ 45 mls/hr [id number] IV Last administered on 01/28/20at 20:14; Start 01/27/20 at 22:00; Stop 01/29/20 at 09:56; Status DC Info (Tpn Per Pharmacy) 1 each PRN DAILY PRN MC SEE COMMENTS Last administered on 02/02/20at 11:24; Start 01/27/20 at 12:00 Lidocaine HCl (Xylocaine 2% Topical 30gm Tube) 1 sang BID TP Last administered on 02/03/20at 08:18; Start 01/27/20 at 12:15 Sodium Chloride 120 meq/Sodium Acetate 120 meq/ Potassium Chloride 30 meq/ Potassium Phosphate 22 mmol/ Magnesium Sulfate 24 meq/Calcium Gluconate 10 meq/ Multivitamins 10 ml/Chromium/ Copper/Manganese/ Seleni/Zn 1 ml/ Total Parenteral Nutrition/Amino Acids/Dextrose/ Fat Emulsion Intravenous 1,920 ml @ 80 mls/hr TPN CONT IV Last administered on 01/27/20at 22:21; Start 01/27/20 at 22:00; Stop 01/28/20 at 21:59; Status DC Sodium Chloride 120 meq/Sodium Acetate 120 meq/ Potassium Chloride 50 meq/ Potassium Phosphate 22 mmol/ Magnesium Sulfate 24 meq/Calcium Gluconate 10 meq/ Multivitamins 10 ml/Chromium/ Copper/Manganese/ Seleni/Zn 1 ml/ Total Parenteral Nutrition/Amino Acids/Dextrose/ Fat Emulsion Intravenous 1,920 ml @ 80 mls/hr TPN CONT IV Last administered on 01/28/20at 22:05; Start 01/28/20 at 22:00; Stop 01/29/20 at 21:59; Status DC Sodium Chloride 120 meq/Sodium Acetate 120 meq/ Potassium Chloride 50 meq/ Potassium Phosphate 22 mmol/ Magnesium Sulfate 24 meq/Calcium Gluconate 10 meq/ Multivitamins 10 ml/Chromium/ Copper/Manganese/ Seleni/Zn 1 ml/ Total Parenteral Nutrition/Amino Acids/Dextrose/ Fat Emulsion Intravenous 1,920 ml @ 80 mls/hr TPN CONT IV Last administered on 01/29/20at 21:52; Start 01/29/20 at 22:00; Stop 01/30/20 at 21:59; Status DC Meropenem 500 mg/ Sodium Chloride 50 ml @ 100 mls/hr Q6HRS IV Last administered on 02/02/20at 05:19; Start 01/29/20 at 14:00; Stop 02/02/20 at 10:50; Status DC Daptomycin 260 mg/ Sodium Chloride 50 ml @ 100 mls/hr Q24H IV Last administered on 01/30/20at 15:01; Start 01/29/20 at 14:00; Stop 01/31/20 at 11:04; Status DC Sodium Chloride 120 meq/Sodium Acetate 120 meq/ Potassium Chloride 30 meq/ Potassium Phosphate 22 mmol/ Magnesium Sulfate 24 meq/Calcium Gluconate 10 meq/ Multivitamins 10 ml/Chromium/ Copper/Manganese/ Seleni/Zn 1 ml/ Total Parenteral Nutrition/Amino Acids/Dextrose/ Fat Emulsion Intravenous 1,920 ml @ 80 mls/hr TPN CONT IV Last administered on 01/30/20at 22:15; Start 01/30/20 at 22:00; Stop 01/31/20 at 21:59; Status DC Sodium Chloride 120 meq/Sodium Acetate 120 meq/ Potassium Chloride 30 meq/ Potassium Phosphate 22 mmol/ Magnesium Sulfate 24 meq/Calcium Gluconate 10 meq/ Multivitamins 10 ml/Chromium/ Copper/Manganese/ Seleni/Zn 1 ml/ Total Parenteral Nutrition/Amino Acids/Dextrose/ Fat Emulsion Intravenous 1,920 ml @ 80 mls/hr TPN CONT IV Last administered on 01/31/20at 22:29; Start 01/31/20 at 22:00; Stop 02/01/20 at 21:59; Status DC Furosemide (Lasix) 20 mg 1X ONCE IVP Last administered on 02/01/20at 12:24; Start 02/01/20 at 12:00; Stop 02/01/20 at 12:01; Status DC Sodium Chloride 120 meq/Sodium Acetate 120 meq/ Potassium Chloride 30 meq/ Potassium Phosphate 22 mmol/ Magnesium Sulfate 24 meq/Calcium Gluconate 10 meq/ Multivitamins 10 ml/Chromium/ Copper/Manganese/ Seleni/Zn 1 ml/ Total Parenteral Nutrition/Amino Acids/Dextrose/ Fat Emulsion Intravenous 1,920 ml @ 80 mls/hr TPN CONT IV Last administered on 02/01/20at 22:01; Start 02/01/20 at 22:00; Stop 02/02/20 at 21:59; Status DC Furosemide (Lasix) 20 mg 1X ONCE IVP Last administered on 02/02/20at 10:28; Start 02/02/20 at 10:30; Stop 02/02/20 at 10:31; Status DC Sodium Chloride 120 meq/Sodium Acetate 120 meq/ Potassium Chloride 30 meq/ Potassium Phosphate 22 mmol/ Magnesium Sulfate 24 meq/Calcium Gluconate 10 meq/ Multivitamins 10 ml/Chromium/ Copper/Manganese/ Seleni/Zn 1 ml/ Total Parenteral Nutrition/Amino Acids/Dextrose/ Fat Emulsion Intravenous 1,920 ml @ 80 mls/hr TPN CONT IV Last administered on 02/02/20at 22:05; Start 02/02/20 at 22:00; Stop 02/03/20 at 21:59 Alteplase, Recombinant (Cathflo For Central Catheter Clearance) 1 mg 1X ONCE INT CAT Last administered on 02/03/20at 06:20; Start 02/03/20 at 06:15; Stop 02/03/20 at 06:16; Status DC Alteplase, Recombinant (Cathflo For Central Catheter Clearance) 1 mg 1X ONCE INT CAT Last administered on 02/03/20at 06:24; Start 02/03/20 at 06:30; Stop 02/03/20 at 06:31; Status DC Active Scripts Active Amlodipine Besylate 5 Mg Tablet 5 Mg PO DAILY Dilaudid (Hydromorphone Hcl) 2 Mg Tablet 1 Tab PO Q6HRS PRN MDD 4 Tablet(s) Pantoprazole Sodium (Pantoprazole Sodium) 40 Mg Tablet.dr 40 Mg PO DAILYAC Tylenol (Acetaminophen) 325 Mg Tablet 650 Mg PO PRN Q6HRS PRN Zinc Oxide 56.7 Gm Oint...g. 1 Sang TP BID Ambien (Zolpidem Tartrate) 5 Mg Tablet 5 Mg PO PRN QHS PRN 30 Days [Tpn Per Pharmacy] 1 EACH Each 1 Each MC PRN DAILY PRN TPN at 85cc/hour Sertraline Hcl 50 Mg Tablet 50 Mg PO DAILY 30 Days Lidocaine 35.44 Gm Oint...g. 1 Sang TP BID Reported Ondansetron Hcl 4 Mg Tablet 4 Mg PO PRN Q6HRS PRN Lorazepam 0.5 Mg Tablet 0.5 Mg PO Q6HRS PRN Vitals/I & O Vital Sign - Last 24 Hours 02/02/20 02/02/20 02/02/20 02/02/20 13:21 13:54 15:00 17:52 Temp 99.0 99.0 Pulse 88 Resp 16 B/P (MAP) 149/78 (101) Pulse Ox 98 O2 Delivery Room Air Room Air Room Air Room Air 02/02/20 02/02/20 02/02/20 02/02/20 19:40 20:00 22:04 22:34 Temp 98.1 98.1 Pulse 76 Resp B/P (MAP) 164/86 (112) Pulse Ox 100 100 100 O2 Delivery Room Air Room Air Room Air Room Air 02/03/20 02/03/20 02/03/20 02/03/20 03:00 03:18 03:48 07:00 Temp 98.7 98.4 98.7 98.4 Pulse 90 94 Resp 16 20 18 18 B/P (MAP) 136/64 (88) 94/64 (74) Pulse Ox 92 100 100 100 O2 Delivery Room Air Room Air Room Air Room Air 02/03/20 02/03/20 02/03/20 02/03/20 08:00 08:14 08:44 11:00 Temp 97.9 97.9 Pulse 92 Resp 18 B/P (MAP) 92/70 (77) Pulse Ox 100 O2 Delivery Room Air Room Air Room Air Room Air Intake and Output 02/02/20 02/02/20 02/03/20 15:00 23:00 07:00 Intake Total 50 ml 400 ml Balance 50 ml 400 ml Justicifation of Admission Dx: Justifications for Admission: Justification of Admission Dx: Yes Nutrition Consultation Dietary Evaluation: Recommendations by RD: Dietary education by RD, PPN/TPN Comments: REC continue home TPN: 285 g dextrose, 90 g AA, 35 g lipid diet as tolerated, on regular now per RN Expected Outcomes/Goals: TPN to meet >75% est nutr needs - goal ongoing Interpretation of weight loss: >5% in 1 month Malnutrition Findings: Muscle Mass (Severe): Severe Depletion Weight Status: Underweight BENITA LUTZ MD Feb 03, 2020 12:20
--- NOTE | 2020-02-03 12:27 | SNU/HH DC ---
DISCHARGE WITH HOME HEALTH DISCHARGE INFORMATION: Discharge Date: Feb 03, 2020 Final Diagnosis: Problems acute renal failure. enteric cutaneous fistulas Medical Problems: (1) Abdominal wall fistula Status: Acute Condition on Discharge: Stable CODE STATUS: Code Status: Full HOME HEALTH: Face to Face: I certify this patient is under my care and that I, or a nurse practitioner or physician's executive chef assistant working with me, had a face to face encounter that meets the physician face to face encounter requirements with this patient on [02/03/20]. RN For Eval/Treatment: Yes Pt Meets Homebound Status: Other: (TPN and care of enteric cutaneous fistulas) POST DISCHARGE ORDERS: Activity Instructions for Disc: Activity as tolerated Weight Bearing Status after Di: As tolerated Bathing Instructions: Shower-keep dressing dry DIET AFTER DISCHARGE: TPN at 85 cc/hour. same formula as before admission Wound/Incision Care: Change dressing, Reinforce dressing PRN CHECKS AFTER DISCHARGE: Checks after discharge: Check blood press - daily, Check your Temp as needed, Weigh Yourself Daily FOLLOW-UP: PCP to follow Home Health: dr. lutz Follow up with: dr. lutz next week Additional Instructions: cbc and cmp and magnesium and phosphorus every wednesday and fax results to dr. lutz. fax [phone] TREATMENT/EQUIPMENT ORDERS: Adaptive Equipment Issued: None CERTIFICATION STATEMENT: Certification Statement: Certification Statement: Based on the above finding, I certify that this patient is confined to the home and needs intermittent assisted care, physical therapy and/or speech therapy, or continues to need occupational therapy.~ This patient is under my care, and I have initiated the establishment of the plan of care.~ This patient will be followed by myself or a community physician who will periodically review the plan of care. Home Meds Active Scripts Hydromorphone Hcl (DILAUDID) 2 Mg Tablet, 1 TAB PO Q6HRS PRN for pain MDD 4 Tablet(s), #30 TAB 0 Refills Prov:BENITA LUTZ MD 07/18/19 Pantoprazole Sodium (PANTOPRAZOLE SODIUM ) 40 Mg Tablet.dr 40 MG PO DAILYAC for reflux esophagitis, #30 TAB.SR Prov:BENITA LUTZ MD 07/18/19 Acetaminophen (TYLENOL) 325 Mg Tablet, 650 MG PO PRN Q6HRS PRN for MILD PAIN / TEMP, #30 TAB Prov:BENITA LUTZ MD 01/03/19 Zinc Oxide (ZINC OXIDE) 56.7 Gm Oint...g., 1 WANDY TP BID for abdominal skin excoriation, #30 GR Prov:BENITA LUTZ MD 07/11/18 Zolpidem Tartrate (AMBIEN) 5 Mg Tablet, 5 MG PO PRN QHS PRN for INSOMNIA for 30 Days, TAB Prov:BENITA LUTZ MD 06/23/18 [Tpn Per Pharmacy] 1 EACH EACH No Conflict Check, 1 EACH PRN DAILY PRN for SEE COMMENTS TPN at 85cc/hour Prov:BENITA LUTZ MD 06/23/18 Sertraline Hcl (SERTRALINE HCL) 50 Mg Tablet, 50 MG PO DAILY for 30 Days, #30 TAB Prov:BENITA LUTZ MD 01/05/17 Lidocaine (LIDOCAINE) 35.44 Gm Oint...g., 1 WANDY TP BID, #30 Prov:BENITA LUTZ MD 12/18/15 Reported Medications Ondansetron Hcl (ONDANSETRON HCL) 4 Mg Tablet, 4 MG PO PRN Q6HRS PRN for NAUSEA 07/12/19 Lorazepam (LORAZEPAM) 0.5 Mg Tablet, 0.5 MG PO Q6HRS PRN for ANXIETY, TAB 08/31/16 Discontinued Reported Medications Lysine (L-LYSINE) 500 Mg Tablet, 500 MG PO DAILY for supplement, TAB 01/27/20 Ca Carb & Gluc/Mag Ox & Gluc (CALCIUM MAGNESIUM CAPLET) 1 Each Tablet, 1 EACH PO DAILY for supplement, TAB 01/27/20 Ca Carb & Gluc/Mag Ox & Gluc (CALCIUM MAGNESIUM CAPLET) 1 Each Tablet, 1 EACH PO DAILY for supplement, TAB 01/27/20 Discontinued Scripts Amlodipine Besylate (AMLODIPINE BESYLATE) 5 Mg Tablet, 5 MG PO DAILY for HTN, #30 TAB Prov:BENITA LUTZ MD 12/22/19 BENITA LUTZ MD Feb 03, 2020 12:27
--- NOTE | 2020-02-03 12:31 | PDOC ---
Provider Note Provider Note discharge summary dictated # [id number] Justicifation of Admission Dx: Justifications for Admission: Justification of Admission Dx: Yes BENITA LUTZ MD Feb 03, 2020 12:31
--- NOTE | 2020-02-03 14:10 | DS ---
DATE OF DISCHARGE: 02/03/2020 CONSULTANTS: Dr. Barber. FINAL DIAGNOSES: 1. Acute renal failure secondary to nausea, vomiting and decreased oral fluid intake. 2. Nausea and vomiting, which eventually resolved. 3. Enterocutaneous fistulas. 4. Enterovesical fistulas. 5. Chronic abdominal pain due to adhesions. 6. Severe protein-calorie malnutrition. 7. Anemia of chronic disease. HOSPITAL COURSE: The patient is a 64-year-old -[place] female with history of enterocutaneous fistula, maintained on home total parenteral nutrition who has an enterovesical fistula, chronic abdominal pain due to adhesions with previous surgical procedures to repair it. The enterocutaneous fistulas all failed with mesh in place, admitted to [facility] Emergency Room on 01/26/2020 with a 2-day history of nausea and vomiting. She had chronic abdominal pain due to adhesions. Her BUN was 70, creatinine 2.0. She was admitted to the hospital and started on IV fluids. TPN was started. Renal function normalized. IV fluids were discontinued. She developed some bipedal edema and treated with leg elevation and a couple of doses of IV Lasix. TPN was resumed. She complained of abdominal pain and had some erythema in her abdomen. She had a CAT scan of the abdomen and pelvis done, which showed no evidence of bowel obstruction. She had an ultrasound of her abdomen. There is a question of a fluid collection in the abdominal wall and she was seen by the interventional radiologist and there was no fluid could be aspirated and it was felt that these areas were due to enterocutaneous fistulas. The patient did not have any further nausea, vomiting and those improved. BUN and creatinine was fine. Hemoglobin did drop from 12 to 8 and this is probably due to hydration. His hemoglobin normally runs in 8s and 9s. There was no active bleeding. It was anticipated that she will be dismissed to home today with home health and have CBC, CMP, magnesium and phosphorus done every Wednesday with results faxed to my office. She will be dismissed on Ambien 5 mg at bedtime p.r.n., Zofran 4 mg p.o. every 6 hours p.r.n., Tylenol 650 mg every 6 hours p.r.n., sertraline 50 mg every day, Protonix 40 mg every day, lorazepam 0.5 mg p.o. every 6 hours p.r.n. for anxiety, lidocaine ointment followed by zinc oxide to the abdominal wall b.i.d., Dilaudid 2 mg p.o. q.i.d. p.r.n. severe pain and TPN at 80 mL an hour. BENITA LUTZ MD DR: NABILA/jd JOB#: [id number] / [id number]
[2020-02-03 15:00] VITALS: BP 114/72
--- NOTE | 2020-02-16 08:18 | RAD ---
Limited ultrasound January 30, 2020 Discussion: Limited ultrasound evaluation of the abdomen was performed to evaluate for possible abscess drainage. No significant subcutaneous or superficial intra-abdominal abscess was identified. No procedure was performed. IMPRESSION: Limited abdominal ultrasound demonstrates no drainable abscess
== END 2020-02-03 18:30 | disposition home health service (06) | DRG 682 ==
LOC: ER 16:57 → 4 NORTH 22:35 → OBSVTOIN 01-27 11:51 → 4 NORTH 01-30 10:12
PROVIDERS: ADMIT Internal Medicine; ATTEND Internal Medicine
DX: N17.9 Acute kidney failure, unspecified (principal); E43 Unspecified severe protein-calorie malnutrition; K63.2 Fistula of intestine; L02.211 Cutaneous abscess of abdominal wall; N32.1 Vesicointestinal fistula; D63.8 Anemia in other chronic diseases classified elsewhere; E86.0 Dehydration; F41.9 Anxiety disorder, unspecified; G89.29 Other chronic pain; I10 Essential (primary) hypertension; Z79.899 Other long term (current) drug therapy; Z85.41 Personal history of malignant neoplasm of cervix uteri; Z86.19 Personal history of other infectious and parasitic diseases; Z86.718 Personal history of other venous thrombosis and embolism; Z87.19 Personal history of other diseases of the digestive system; Z88.1 Allergy status to other antibiotic agents; Z90.710 Acquired absence of both cervix and uterus; F32.9 Major depressive disorder, single episode, unspecified; Z88.8 Allergy status to other drugs, medicaments and biological substances
CPT/HCPCS: 36415; 74022; 74176; 76705; 80048; 80053; 83605; 83735; 84100; 84165; 85025; 87040; 93005; 96365; 96375; 96376; G0378; G0379; J0610; J0696; J0878; J1170; J1940; J2185; J2270; J2405; J2997; J3475; J3480; J3490; J7030; 99285-25

== ENCOUNTER 2020-02-20 17:20 | Inpatient (IN) | payer MEDICARE ==
[~2020-02-20] VITALS: Ht 162.6 cm; Wt 36.8 kg
[~2020-02-20 17:20] MED LIST changes: +CA C1TAB58 PO; +LYSI500T8 PO
[2020-02-20] MEDS ORDERED: ONDANSETRON PF 4 MG/2 ML VIAL. IVP PRN (17:45)
[2020-02-20] MEDS ORDERED: ZOLPIDEM 5 MG TABLET. PO PRN (17:45)
[2020-02-20] MEDS ORDERED: LIDOCAINE 2% TOPICAL JELLY 5GM TUBE. TP ONE (17:45)
[2020-02-20] MEDS ORDERED: ACETAMINOPHEN 325 MG TABLET. PO PRN (17:45)
[2020-02-20 17:50] VITALS: BP 124/87
[2020-02-20] MEDS: HYDROmorphone 2 MG/ML VIAL IVP PRN ×2 (18:10→22:45)
--- NOTE | 2020-02-20 18:26 | EKG ---
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
[2020-02-20] MEDS: POTASSIUM CL 20MEQ-0.45% NACL 1,000 ML IV SCH (19:00)
[2020-02-20 19:30] VITALS: BP 151/80
[2020-02-20 19:40] LABS: BASO # 0.1 x10^3/uL (0.0-0.2); BASO % 1 % (0-3); EOS # 0.1 x10^3/uL (0.0-0.7); EOS % 1 % (0-3); HEMATOCRIT 34.1 % (36.0-47.0); HEMOGLOBIN 11.4 g/dL (12.0-15.5); LYMPH # 0.9 x10^3/uL (1.0-4.8); LYMPH % 9 % (24-48); MEAN CORPUSCULAR HEMOGLOBIN 27 pg (25-35); MEAN CORPUSCULAR HGB CONC 33 g/dL (31-37); MEAN CORPUSCULAR VOLUME 81 fL (79-100); MONO # 0.7 x10^3/uL (0.0-1.1); MONO % 6 % (0-9); NEUT # 8.9 x10^3/uL (1.8-7.7); NEUT % 84 % (31-73); PLATELET COUNT 700 x10^3/uL (140-400); RED BLOOD COUNT 4.23 x10^6/uL (3.50-5.40); RED CELL DISTRIBUTION WIDTH 19.5 % (11.5-14.5); WHITE BLOOD COUNT 10.7 x10^3/uL (4.0-11.0)
[2020-02-20 19:58] LABS: ALBUMIN 1.8 g/dL (3.4-5.0); ALBUMIN/GLOBULIN RATIO 0.2 (1.0-1.7); ALK PHOS 136 U/L (46-116); ANION GAP 5 (6-14); AST (SGOT) 9 U/L (15-37); BLOOD UREA NITROGEN 26 mg/dL (7-20); BUN/CREATININE RATIO 22 (6-20); CARBON DIOXIDE 31 mmol/L (21-32); CHLORIDE 96 mmol/L (98-107); CREATININE 1.2 mg/dL (0.6-1.0); GFR 54.7; GLUCOSE 115 mg/dL (70-99); MAGNESIUM 2.1 mg/dL (1.8-2.4); PHOSPHORUS 3.8 mg/dL (2.6-4.7); POTASSIUM 3.6 mmol/L (3.5-5.1); SODIUM 132 mmol/L (136-145); TOTAL BILIRUBIN 0.6 mg/dL (0.2-1.0); TOTAL PROTEIN 9.1 g/dL (6.4-8.2)
[2020-02-20 19:59] LABS: ALT (SGPT) < 6 U/L (14-59)
--- NOTE | 2020-02-20 23:08 | RAD ---
Exam: Chest one view INDICATION: Vomiting TECHNIQUE: Frontal view of the chest Comparisons: 12/17/2019 FINDINGS: Right-sided central venous catheter with tip at the caval junction. The cardiomediastinal silhouette and pulmonary vessels are within normal limits. The lung and pleural spaces are clear. IMPRESSION: No acute cardiopulmonary process. Electronically signed by: Abdoul Puentes MD (02/20/2020 11:05 PM) [id number]
[2020-02-20 23:33] VITALS: BP 130/83
[2020-02-21] MEDS: POTASSIUM CL 20MEQ-0.45% NACL 1,000 ML IV SCH (02:14)
[2020-02-21 03:19] VITALS: BP 111/84
[2020-02-21] MEDS: HYDROmorphone 2 MG/ML VIAL IVP PRN ×4 (04:29→19:30)
--- NOTE | 2020-02-21 05:00 | NUR ---
Pt. states there is a metal piece of something sticking up from abdominal area. RN took a look at it and it does seem like there's something in there. RN told pt. to show MD when they come around the unit. [id number]- RN told day shift RN about this.
[2020-02-21 07:00] VITALS: BP 117/80
--- NOTE | 2020-02-21 08:50 | PDOC2 ---
GI CONSULT Date of Service: DATE: 02/21/20 TIME: 08:50 Reason For Consult: nausea and vomiting and belching HPI: HPI: Pleasant 64 y/o female who we have seen many times. Seems directly admitted by Dr. Cisneros this time - she tells me has had some vomiting for the past couple days ("phlegm"), increased abdominal pain, and increased drainage from wounds on abdomen. Denies dysphagia, diarrhea, fever, and bleeding. Would like a fresh blanket and sheet. Currently eating eggs and potatoes, also looking at the menu. H/o complicated diverticular disease w/ enterocutaneous fistulas w/ numerous (unsuccessful) surgeries in the past (at [facility], , [facility]). Intermittent n/v, chronic abd pain, and fluctuating fistulae drainage (in past suspected related to intermittent obstruction). On TPN, Dilaudid PRN, and PPI at home. H/o abdominal wall abscess s/p IR drain and abdominal wounds w/ h/o wound vac. EGD pathology (Dr. Arellano) 09/2017 - ana esophagitis (negative for Wallace's). EGD (Dr. Ovalle) 10/2018: suspected pill-induced ulcers in proximal esophagus, esophageal candidiasis (confirmed w/ biopsy, treated w/ Diflucan), mild reflux, normal stomach, normal duodenum. Records indicate colonoscopy in 2011 w/ diverticulosis and previous resection. S/p cholecystectomy (does not recall stones). H/o elevated LFTs, MRCP showed "kink" in CBD. PMH: PMH: HTN, cervical cancer (w/ radium implants), UE DVT, anxiety, sepsis, UTI, esophagitis and gastritis, ?PUD, SBO, diverticulosis, CKD, hypothyroidism, fistulas as above, SBO, appendectomy, cholecystectomy, hysterectomy, bilateral hip pinning, multiple laparotomies, I&D superficial abdominal wall/skin abscess, PICC placement/removal/replacements, G tube placement/removal, colon resection, wound vac FH: Family History: No pertinent hx Social History: Smoke: No ALCOHOL: none Drugs: None ROS: GEN: Denies fevers, chills, sweats HEENT: Denies blurred vision, sore throat CV: Denies chest pain RESP: Denies shortness of air, cough GI: Per HPI : Denies hematuria, dysuria ENDO: +weight loss NEURO: Denies confusion, dizziness MSK: Denies weakness, joint pain/swelling SKIN: Denies jaundice, pruritus Vitals: Vitals: Vital Signs Date Time Temp Pulse Resp B/P (MAP) Pulse Ox O2 Delivery O2 Flow Rate FiO2 02/21/20 07:00 89 18 117/80 (92) 99 Room Air 02/21/20 03:19 97.8 97.8 Labs: Labs: Laboratory Tests Test 02/20/20 19:23 White Blood Count 10.7 x10^3/uL (4.0-11.0) Red Blood Count 4.23 x10^6/uL (3.50-5.40) Hemoglobin 11.4 g/dL (12.0-15.5) Hematocrit 34.1 % (36.0-47.0) Mean Corpuscular Volume 81 fL (79-100) Mean Corpuscular Hemoglobin 27 pg (25-35) Mean Corpuscular Hemoglobin Concent 33 g/dL (31-37) Red Cell Distribution Width 19.5 % (11.5-14.5) Platelet Count 700 x10^3/uL (140-400) Neutrophils (%) (Auto) 84 % (31-73) Lymphocytes (%) (Auto) 9 % (24-48) Monocytes (%) (Auto) 6 % (0-9) Eosinophils (%) (Auto) 1 % (0-3) Basophils (%) (Auto) 1 % (0-3) Neutrophils # (Auto) 8.9 x10^3/uL (1.8-7.7) Lymphocytes # (Auto) 0.9 x10^3/uL (1.0-4.8) Monocytes # (Auto) 0.7 x10^3/uL (0.0-1.1) Eosinophils # (Auto) 0.1 x10^3/uL (0.0-0.7) Basophils # (Auto) 0.1 x10^3/uL (0.0-0.2) Sodium Level 132 mmol/L (136-145) Potassium Level 3.6 mmol/L (3.5-5.1) Chloride Level 96 mmol/L (98-107) Carbon Dioxide Level 31 mmol/L (21-32) Anion Gap 5 (6-14) Blood Urea Nitrogen 26 mg/dL (7-20) Creatinine 1.2 mg/dL (0.6-1.0) Estimated GFR (Cockcroft-Gault) 54.7 BUN/Creatinine Ratio 22 (6-20) Glucose Level 115 mg/dL (70-99) Calcium Level 9.0 mg/dL (8.5-10.1) Phosphorus Level 3.8 mg/dL (2.6-4.7) Magnesium Level 2.1 mg/dL (1.8-2.4) Total Bilirubin 0.6 mg/dL (0.2-1.0) Aspartate Amino Transf (AST/SGOT) 9 U/L (15-37) Alanine Aminotransferase (ALT/SGPT) < 6 U/L (14-59) Alkaline Phosphatase 136 U/L (46-116) Total Protein 9.1 g/dL (6.4-8.2) Albumin 1.8 g/dL (3.4-5.0) Albumin/Globulin Ratio 0.2 (1.0-1.7) Allergies: Coded Allergies: Iodinated Contrast Media (Verified Allergy, Severe, Anaphylaxis, 11/08/19) PT HAS BEEN PREMEDICATED BEFORE WITH NO PROBLEMS, -16-15. vancomycin (Verified Allergy, Severe, Swelling, 11/08/19) Has tolerated PO vancomycin adhesive tape (Verified Allergy, Intermediate, Rash, 11/08/19) silver (Verified Allergy, Intermediate, Rash, Tegaderm film, can have on abd but no where else, 11/08/19) codeine (Verified Adverse Reaction, Severe, Nausea and Vomiting, 11/08/19) Medications: Current Medications Medications (Trade) Dose Ordered Sig/Alex Route PRN Reason Start Time Stop Time Status Last Admin Dose Admin Potassium Chloride/Sodium Chloride 1,000 ml @ 125 mls/hr Q8H IV 02/20/20 19:00 02/21/20 02:14 Ondansetron HCl (Zofran) 4 mg PRN Q4HRS PRN IVP NAUSEA/VOMITING 02/20/20 17:45 02/20/20 18:10 Hydromorphone HCl (Dilaudid) 2 mg PRN Q4HRS PRN IVP PAIN 02/20/20 17:45 02/21/20 04:29 Lorazepam (Ativan Inj) 1 mg PRN Q6HRS PRN IVP ANXIETY / AGITATION 02/20/20 17:45 02/20/20 18:09 Lidocaine HCl (Xylocaine 2% Topical 5gm Tube) 1 nallely 1X ONCE TP 02/20/20 17:45 02/20/20 17:53 DC 02/20/20 21:10 Imaging: Imaging: CXR 02/19 IMPRESSION: No acute cardiopulmonary process. CT A/P 02/20 pending PE: GEN: chronically ill HEENT: Atraumatic, PERRL LUNGS: CTAB HEART: RRR ABD/SKIN: looks like more openings in left abdomen than in the past - thick green drainage noted w/ chronic erythema - not distended, not too uncomfortable EXTREMITY: No edema SKIN: No rashes, no jaundice NEURO/PSYCH: A & O 3 A/P: A/P: Chronic/recurrent vomiting, abd pain H/o complicated diverticular disease w/ many surgeries, chronic fistulae w/ increased drainage Chronic anemia GERD, h/o esophageal candidiasis CRC screen - 2011 H/o C Diff S/p cholecystectomy -- Await CT. Agree w/ PPI - if going to eat, can have PO instead of IV. As in the past, could consider backing off on diet if vomiting. MIESHA RICO Feb 21, 2020 08:50
[2020-02-21] MEDS ORDERED: ALTEPLASE 1MG SYRINGE. INT CAT ONE (09:00)
--- NOTE | 2020-02-21 09:33 | NUR ---
Pt would benefit from PT/OT eval and treat to ensure safe discharge plan. Please write PT/OT eval and treat orders if you agree Addendum: 02/21/20 at 0934 by NUSRAT DUGAN PT Amended: Links added.
--- NOTE | 2020-02-21 09:44 | NUR ---
SW following. Discussed with RN, pt from home with daughter, regular diet, room air. Pt has home TPN through [facility], and home health with [facility]. SW will continue to follow.
[2020-02-21] MEDS: SERTRALINE 50 MG TABLET. PO SCH (09:59)
[2020-02-21] MEDS: PANTOPRAZOLE IV PUSH 40 MG VIAL. IVP SCH (09:59)
--- NOTE | 2020-02-21 10:08 | PDOC ---
Provider Note Date of Service: DATE: 02/21/20 TIME: 10:08 Provider Note history and physical dictated # [id number] Justifications for Admission Other Justification BENITA LUTZ MD Feb 21, 2020 10:08
[2020-02-21] MEDS: ZINC OXIDE 20% TOPICAL OINTMENT 28GM TUBE. TP PRN (10:16)
--- NOTE | 2020-02-21 10:48 | HP ---
ADMIT DATE: 02/20/2020 LOCATION: She is in room 442. HISTORY OF PRESENT ILLNESS: The patient is a 64-year-old -[place] female with a history of enterocutaneous fistula and enterovesical fistula, maintained on home total parenteral nutrition by a visiting nurse through a PICC line and who has chronic abdominal pain due to adhesions from previous surgery to repair the enterocutaneous fistula, was admitted to [facility] from my office on 02/20/2020 with a several-day history of nausea and vomiting. She also notes a lot of belching. She does take Protonix and p.r.n. Zofran at home. The patient was subsequently admitted to the hospital. She has lost weight and muscle mass. ALLERGIES AND INTOLERANCES: IV IODINE, ADHESIVE TAPE, CODEINE, SILVER, AND IV VANCOMYCIN. MEDICATIONS: Prior to admission include Ambien 5 mg at bedtime p.r.n., Zofran 4 mg p.o. every 6 hours p.r.n., Tylenol 650 mg every 6 hours p.r.n., sertraline 50 mg every day, Protonix 40 mg p.o. daily, lorazepam 0.5 mg p.o. every 6 hours p.r.n. anxiety, lidocaine ointment followed by zinc oxide applied topically to the abdominal wall excoriation area b.i.d., Dilaudid 2 mg p.o. q.i.d. p.r.n., and TPN at 80 mL an hour continuously at home. PAST MEDICAL HISTORY: Significant for enterocutaneous fistula and also has enterovesical fistula. She has had 5 abdominal procedures in the past including mesh placement to try to repair the enterocutaneous fistula and all have failed. She had a recent abdominal wall abscess. It was treated. It was percutaneously drained. She has a history of severe protein-calorie malnutrition, anemia of chronic disease, previous history of hypertension. She has a PICC line placed on the right side of the chest below the clavicle, which is her last possible site for a PICC line. She has a history of an appendectomy, cholecystectomy, tonsillectomy, hysterectomy, depression, previous history of diverticulitis, Judi esophagitis, erosive esophagitis. She had recurrent bacteremia and sepsis related to her PICC line in the past. She had a deep vein thrombosis in the left arm due to a PICC line in 2010, previous history of Clostridium difficile colitis in the past. SOCIAL HISTORY: She does not drink alcohol nor does she smoke cigarettes. FAMILY HISTORY: Noncontributory. REVIEW OF SYSTEMS: GENERAL: No fever, chills or sweats in the last 3 days. CARDIOVASCULAR: No chest pain. PULMONARY: No cough or shortness of breath. GASTROINTESTINAL: She had lots of belching, nausea and vomiting. ENDOCRINE: No diabetes mellitus. SKIN: She has got some chronic excoriation of the abdominal wall due to the contents of the enterocutaneous fistula. ENDOCRINE: No diabetes mellitus. Rest of systems reviewed, are negative except as stated in history of present illness. PHYSICAL EXAMINATION: VITAL SIGNS: Temperature 97.8 degrees, heart rate 89, respiratory rate 18, blood pressure 117/80, oxygen saturation is 99% on room air. HEENT: Eyes: Gaze is conjugate. Mouth: Tongue is midline. No yeast. NECK: No cervical lymphadenopathy or thyroid enlargement. CHEST: She has got a PICC line below the right clavicle. HEART: Reveals an S1, S2. There is no S3 or murmur. LUNGS: Clear. ABDOMEN: Soft, not distended, not tender. She has got multiple openings from her enterocutaneous fistulas in the left groin and left lower abdomen near the groin as well as the middle lower portion of the abdomen. She had some chronic redness and excoriation from the contents of the enterocutaneous fistula. Abdomen is not distended. It is soft. EXTREMITIES: Lower extremities without edema. GENERAL APPEARANCE: She has got a lot of cachexia with a loss of muscle mass in the upper and lower extremities, especially in her legs. SKIN: No rashes except for the excoriations in abdominal wall. She does have a stitch in the left groin that nurse removed from the previous drain site. NEUROLOGIC: There is no focal weakness and she is coherent. REVIEW OF LABORATORY TESTS: The white count is 10.7, hemoglobin 11.4, platelet count was 700,000 with 84 polys and 9 lymphocytes. Sodium 132, potassium 3.6, chloride 96, total CO2 of 31, BUN 26, creatinine 1.2, blood sugar 115. Magnesium 2.1. Liver function tests were okay. Albumin was 1.8. Alkaline phosphatase 136. She had a chest x-ray done, which showed clear lungs, no acute abnormality. CAT scan of the abdomen and pelvis was done this morning, the report is pending. She had an electrocardiogram done, the report is pending and unable to image the EKG. ASSESSMENT: 1. Recurrent nausea and vomiting. I doubt she has a bowel obstruction with a CAT scan of the abdomen and pelvis shows. 2. Gastroesophageal reflux disease with esophagitis. 3. Enterocutaneous fistula. 4. Enterovesical fistula. 5. Severe protein-calorie malnutrition. 6. Malnutrition. 7. Hyponatremia 8. Anemia of chronic disease. PLAN: At this time is to continue with her IV fluid. I spoke with the pharmacist. Once the TPN is available, will discontinue IV fluids. We will order Protonix 40 mg IV daily and Zofran 4 mg IV every 6 hours on schedule. Dilaudid has been ordered p.r.n. severe pain related to abdominal adhesions causing her pain. I left an order to hold the Dilaudid if she is drowsy. Consult Dr. Ovalle for GI. We will continue with her other current medications. BENITA LUTZ MD DR: NABILA/jd JOB#: [id number] / [id number]
[2020-02-21 11:00] VITALS: BP 109/77
[2020-02-21] MEDS: ONDANSETRON PF 4 MG/2 ML VIAL. IVP SCH ×2 (11:28→17:37)
[2020-02-21] MEDS ORDERED: POTASSIUM CL 20MEQ-0.45% NACL 1,000 ML IV SCH (11:45)
[2020-02-21] MEDS: TPN PER PHARMACY MC PRN (11:51)
--- NOTE | 2020-02-21 11:51 | NUR ---
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 TPN started 02/21/20 B:Pertinent PMH: long-term TPN Height: feet, inches Weight: 36.8 kg Current diet: Regular LABS: Sodium: 132 Potassium: 3.6 Chloride: 96 Calcium: 9.0 Corrected Calcium: 10.76 Magnesium: 2.1 CO2: 31 SCr: 1.2 Glucose: 115 Albumin: 1.8 AST: 9 ALT: < 6 TPN FORMULA: TPN TYPE: Central Continuous AMINO ACIDS: 90 gm DEXTROSE: 285 gm LIPIDS: 35 gm SODIUM CHLORIDE: 120 mEq SODIUM ACETATE: 120 mEq POTASSIUM CHLORIDE: 30 mEq POTASSIUM PHOSPHATE: 22 mmol MAGNESIUM: 24 mEq CALCIUM: 10 mEq MULTIPLE VITAMIN: 10 ml TRACE ELEMENTS: 1 ml(s) TPN PLAN: Restart TPN formula from previous admission. DC IVF once TPN starts. -BMP in AM R: Begin TPN as noted above. Will monitor electrolytes, glucose, and tolerance to TPN. SWAPNIL SANTOS [facility], 02/21/20 115
--- NOTE | 2020-02-21 12:20 | RAD ---
EXAM: CT Abdomen and Pelvis without IV contrast INDICATION: Reason: vomiting, A.M. PER NURSE MADHU / Spl. Instructions: / History: TECHNIQUE: Multi-detector row CT images were acquired from the lung bases through the abdomen and pelvis without the use of IV contrast. Sagittal and coronal images were acquired from the transaxial data. All CT scans performed at this facility utilize dose optimization techniques as appropriate to the exam, including the following: Automated exposure control and adjustment of the mA and/or KV according to patient size (this includes techniques or standardized protocols for targeted exams where dose is indication/reason for exam). ORAL CONTRAST: None COMPARISON: Abdomen pelvis without IV contrast of 01/27/2020 FINDINGS: The absence of IV contrast limits evaluation of soft tissue pathology. LOWER CHEST: Unremarkable LIVER: Unremarkable BILIARY SYSTEM: Gallbladder is unremarkable. Bile ducts are not dilated. PANCREAS: Unremarkable SPLEEN: Unremarkable ADRENALS: Unremarkable KIDNEYS & URETERS: Unremarkable BLADDER: Mild focal wall thickening of the anterior urinary bladder on the left where it abuts the fluid collection in the ventral abdominal cavity could reflect secondary cystitis. REPRODUCTIVE ORGANS: Evidence of previous hysterectomy and bilateral salpingo-oophorectomy with extensive bilateral pelvic lymphadenectomy is present. GASTROINTESTINAL: There is paucity of abdominal fat that limits detailed assessment. There is evidence of multiple surgical sutures in the right abdomen with several bowel loops that are distended with fluid and gas, only slightly less so than before. There is an interloop fluid collection still present containing gas and debris. This extends from the suprapubic ventral abdominal wall to just above the umbilicus. MESENTERY/PERITONEUM/RETROPERITONEUM: Unremarkable VASCULAR: Unremarkable LYMPH NODES: No adenopathy OSSEOUS & SOFT TISSUES: Patient is cachectic. No acute or aggressive appearing osseous lesions are seen. Bilateral fixation pins in the femoral necks are present. Left lower anterior abdominal wall just above and to the left of the pubic symphysis shows asymmetric soft tissue stranding and thickening with tiny foci of gas that appear extraluminal extending towards focal soft tissue swelling at the skin surface. This could reflect presence of a fistula. Correlate clinically. IMPRESSION: Limited evaluation of the abdomen and pelvis in the absence of IV and enteric contrast but showing a persistent fluid collection in the abdominal cavity status post previous bowel surgery, and additional asymmetric soft tissue thickening in the left suprapubic pelvic soft tissues that could reflect the presence of a possible enterocutaneous fistula. There is fluid distention of multiple bowel loops also present that could reflect a bowel obstruction. Correlate clinically. Electronically signed by: Nils Torres MD (02/21/2020 12:18 PM) [id number]
[2020-02-21 15:00] VITALS: BP 115/68
--- NOTE | 2020-02-21 16:54 | NUR ---
Cathflo administered this morning, PICC line ok to draw. Suture on abdomen removed by this nurse at 1000, no complications noted.
[2020-02-21 19:00] VITALS: BP 157/94
[2020-02-21] MEDS ORDERED: AMINO ACID IV SCH (22:00)
[2020-02-21] MEDS ORDERED: [UNRECOGNIZED DRUG - OTHER] IV SCH (22:00)
[2020-02-21] MEDS ORDERED: TOTAL PARENTERAL NUTRITION IV SCH (22:00)
[2020-02-21] MEDS ORDERED: DEXTROSE 70% IV SCH (22:00)
[2020-02-21] MEDS: LORazepam 0.5 MG TABLET PO PRN (22:23)
[2020-02-21 23:00] VITALS: BP 145/72
[2020-02-22] MEDS: ONDANSETRON PF 4 MG/2 ML VIAL. IVP SCH ×4 (00:23→19:03)
[2020-02-22] MEDS: HYDROmorphone 2 MG/ML VIAL IVP PRN ×6 (00:23→23:16)
[2020-02-22 03:00] VITALS: BP 112/83
[2020-02-22] MEDS: LORazepam 0.5 MG TABLET PO PRN (05:11)
[2020-02-22] MEDS: ZINC OXIDE 20% TOPICAL OINTMENT 28GM TUBE. TP PRN (05:14)
[2020-02-22 06:30] LABS: BASO # 0.1 x10^3/uL (0.0-0.2); BASO % 1 % (0-3); EOS # 0.3 x10^3/uL (0.0-0.7); EOS % 3 % (0-3); HEMATOCRIT 28.1 % (36.0-47.0); HEMOGLOBIN 9.2 g/dL (12.0-15.5); LYMPH % 12 % (24-48); MEAN CORPUSCULAR HEMOGLOBIN 27 pg (25-35); MEAN CORPUSCULAR HGB CONC 33 g/dL (31-37); MEAN CORPUSCULAR VOLUME 82 fL (79-100); MONO # 0.7 x10^3/uL (0.0-1.1); MONO % 8 % (0-9); NEUT # 6.2 x10^3/uL (1.8-7.7); NEUT % 76 % (31-73); PLATELET COUNT 508 x10^3/uL (140-400); RED BLOOD COUNT 3.44 x10^6/uL (3.50-5.40); RED CELL DISTRIBUTION WIDTH 18.7 % (11.5-14.5); WHITE BLOOD COUNT 8.2 x10^3/uL (4.0-11.0)
[2020-02-22 06:38] LABS: CALCIUM 8.6 mg/dL (8.5-10.1); CREATININE 0.8 mg/dL (0.6-1.0); GFR 87.4; POTASSIUM 5.1 mmol/L (3.5-5.1)
[2020-02-22 07:05] VITALS: BP 135/87
[2020-02-22] MEDS: SERTRALINE 50 MG TABLET. PO SCH (09:00)
[2020-02-22] MEDS: PANTOPRAZOLE IV PUSH 40 MG VIAL. IVP SCH (09:44)
--- NOTE | 2020-02-22 10:04 | NUR ---
SW following. Discussed with RN, pt from home with daughter, room air, regular diet. Pt has home TPN through [facility] and home health with [facility]. SW will continue to follow.
--- NOTE | 2020-02-22 10:13 | PDOC ---
Date of Service: DATE: 02/22/20 TIME: 10:11 Subjective: Subjective: Not feeling good today. Objective: Vital Signs: Vital Signs Date Time Temp Pulse Resp B/P (MAP) Pulse Ox O2 Delivery O2 Flow Rate FiO2 02/22/20 09:45 99 Room Air 02/22/20 07:05 98.4 96 20 135/87 (103) 98.4 Labs: Laboratory Tests Test 02/22/20 06:20 White Blood Count 8.2 x10^3/uL Red Blood Count 3.44 x10^6/uL Hemoglobin 9.2 g/dL Hematocrit 28.1 % Mean Corpuscular Volume 82 fL Mean Corpuscular Hemoglobin 27 pg Mean Corpuscular Hemoglobin Concent 33 g/dL Red Cell Distribution Width 18.7 % Platelet Count 508 x10^3/uL Neutrophils (%) (Auto) 76 % Lymphocytes (%) (Auto) 12 % Monocytes (%) (Auto) 8 % Eosinophils (%) (Auto) 3 % Basophils (%) (Auto) 1 % Neutrophils # (Auto) 6.2 x10^3/uL Lymphocytes # (Auto) 1.0 x10^3/uL Monocytes # (Auto) 0.7 x10^3/uL Eosinophils # (Auto) 0.3 x10^3/uL Basophils # (Auto) 0.1 x10^3/uL Sodium Level 132 mmol/L Potassium Level 5.1 mmol/L Chloride Level 102 mmol/L Carbon Dioxide Level 26 mmol/L Anion Gap 4 Blood Urea Nitrogen 29 mg/dL Creatinine 0.8 mg/dL Estimated GFR (Cockcroft-Gault) 87.4 Glucose Level 117 mg/dL Calcium Level 8.6 mg/dL Imaging: CT A/P IMPRESSION: Limited evaluation of the abdomen and pelvis in the absence of IV and enteric contrast but showing a persistent fluid collection in the abdominal cavity status post previous bowel surgery, and additional asymmetric soft tissue thickening in the left suprapubic pelvic soft tissues that could reflect the presence of a possible enterocutaneous fistula. There is fluid distention of multiple bowel loops also present that could reflect a bowel obstruction. Correlate clinically. PE: GEN: chronically ill - having x-rays done LUNGS: CTAB HEART: RRR ABD: non-distended NEURO/PSYCH: A & O 3 A/P: Chronic/recurrent vomiting, suspected partial SBO -- Discussed trying NPO for a day or two - she is agreeable. Justicifation of Admission Dx: Justifications for Admission: Justification of Admission Dx: Yes MIESHA RICO Feb 22, 2020 10:13
[2020-02-22 11:05] VITALS: BP 118/62
--- NOTE | 2020-02-22 11:21 | PDOC ---
PROGRESS NOTES Date of Service DATE: 02/22/20 TIME: 11:16 Subjective Subjective says she had 2 formed BM yesterday but vomited twice. has belching too. mild abdominal pain. abdomen not distended. lab reviewed,. potassium 5.1. ct scan of abdomen and pelvis report reviewed. Objective Objective Vital Signs Date Time Temp Pulse Resp B/P (MAP) Pulse Ox O2 Delivery O2 Flow Rate FiO2 02/22/20 09:45 99 Room Air 02/22/20 07:05 98.4 96 20 135/87 (103) 98.4 Intake and Output 02/22/20 07:00 Intake Total 1300 ml Balance 1300 ml Intake Oral 1300 ml # Voids 4 # Bowel Movements 1 Physical Exam Abdomen: Normal bowel sounds, Soft, Other (not distended. numerous openings d ue to enteric cutaneous fistulas) Heart: Regular rate, Normal S1, Normal S2 Extremities: No edema General: Alert HEENT: Atraumatic Lungs: Clear to auscultation Neuro: Normal speech Psych/Mental Status: Mental status NL Skin: No rashes Assessment Assessment 1. Recurrent nausea and vomiting. doubt partial SBO but will consult general surgery. suspect she has GERD 2. Gastroesophageal reflux disease with esophagitis. 3. Enterocutaneous fistulas. 4. Enterovesical fistula. 5. Severe protein-calorie malnutrition. 6. Malnutrition. 7. Hyponatremia 8. Anemia of chronic disease. chronic abdominal pain due to abdominal adhesions Plan Plan of Care consult dr. vazquez I spoke with pharmacist and will decrease kcl in TPN continue TPN continue analgesics prn acute abdominal series continue iv protonix and iv zofran Comment Review of Relevant I have reviewed the following items lucila (where applicable) has been applied. Labs Laboratory Tests Test 02/20/20 19:23 02/22/20 06:20 White Blood Count 10.7 x10^3/uL (4.0-11.0) 8.2 x10^3/uL (4.0-11.0) Red Blood Count 4.23 x10^6/uL (3.50-5.40) 3.44 x10^6/uL (3.50-5.40) Hemoglobin 11.4 g/dL (12.0-15.5) 9.2 g/dL (12.0-15.5) Hematocrit 34.1 % (36.0-47.0) 28.1 % (36.0-47.0) Mean Corpuscular Volume 81 fL (79-100) 82 fL (79-100) Mean Corpuscular Hemoglobin 27 pg (25-35) 27 pg (25-35) Mean Corpuscular Hemoglobin Concent 33 g/dL (31-37) 33 g/dL (31-37) Red Cell Distribution Width 19.5 % (11.5-14.5) 18.7 % (11.5-14.5) Platelet Count 700 x10^3/uL (140-400) 508 x10^3/uL (140-400) Neutrophils (%) (Auto) 84 % (31-73) 76 % (31-73) Lymphocytes (%) (Auto) 9 % (24-48) 12 % (24-48) Monocytes (%) (Auto) 6 % (0-9) 8 % (0-9) Eosinophils (%) (Auto) 1 % (0-3) 3 % (0-3) Basophils (%) (Auto) 1 % (0-3) 1 % (0-3) Neutrophils # (Auto) 8.9 x10^3/uL (1.8-7.7) 6.2 x10^3/uL (1.8-7.7) Lymphocytes # (Auto) 0.9 x10^3/uL (1.0-4.8) 1.0 x10^3/uL (1.0-4.8) Monocytes # (Auto) 0.7 x10^3/uL (0.0-1.1) 0.7 x10^3/uL (0.0-1.1) Eosinophils # (Auto) 0.1 x10^3/uL (0.0-0.7) 0.3 x10^3/uL (0.0-0.7) Basophils # (Auto) 0.1 x10^3/uL (0.0-0.2) 0.1 x10^3/uL (0.0-0.2) Sodium Level 132 mmol/L (136-145) 132 mmol/L (136-145) Potassium Level 3.6 mmol/L (3.5-5.1) 5.1 mmol/L (3.5-5.1) Chloride Level 96 mmol/L (98-107) 102 mmol/L (98-107) Carbon Dioxide Level 31 mmol/L (21-32) 26 mmol/L (21-32) Anion Gap 5 (6-14) 4 (6-14) Blood Urea Nitrogen 26 mg/dL (7-20) 29 mg/dL (7-20) Creatinine 1.2 mg/dL (0.6-1.0) 0.8 mg/dL (0.6-1.0) Estimated GFR (Cockcroft-Gault) 54.7 87.4 BUN/Creatinine Ratio 22 (6-20) Glucose Level 115 mg/dL (70-99) 117 mg/dL (70-99) Calcium Level 9.0 mg/dL (8.5-10.1) 8.6 mg/dL (8.5-10.1) Phosphorus Level 3.8 mg/dL (2.6-4.7) Magnesium Level 2.1 mg/dL (1.8-2.4) Total Bilirubin 0.6 mg/dL (0.2-1.0) Aspartate Amino Transf (AST/SGOT) 9 U/L (15-37) Alanine Aminotransferase (ALT/SGPT) < 6 U/L (14-59) Alkaline Phosphatase 136 U/L (46-116) Total Protein 9.1 g/dL (6.4-8.2) Albumin 1.8 g/dL (3.4-5.0) Albumin/Globulin Ratio 0.2 (1.0-1.7) Laboratory Tests Test 02/22/20 06:20 White Blood Count 8.2 x10^3/uL (4.0-11.0) Red Blood Count 3.44 x10^6/uL (3.50-5.40) Hemoglobin 9.2 g/dL (12.0-15.5) Hematocrit 28.1 % (36.0-47.0) Mean Corpuscular Volume 82 fL (79-100) Mean Corpuscular Hemoglobin 27 pg (25-35) Mean Corpuscular Hemoglobin Concent 33 g/dL (31-37) Red Cell Distribution Width 18.7 % (11.5-14.5) Platelet Count 508 x10^3/uL (140-400) Neutrophils (%) (Auto) 76 % (31-73) Lymphocytes (%) (Auto) 12 % (24-48) Monocytes (%) (Auto) 8 % (0-9) Eosinophils (%) (Auto) 3 % (0-3) Basophils (%) (Auto) 1 % (0-3) Neutrophils # (Auto) 6.2 x10^3/uL (1.8-7.7) Lymphocytes # (Auto) 1.0 x10^3/uL (1.0-4.8) Monocytes # (Auto) 0.7 x10^3/uL (0.0-1.1) Eosinophils # (Auto) 0.3 x10^3/uL (0.0-0.7) Basophils # (Auto) 0.1 x10^3/uL (0.0-0.2) Sodium Level 132 mmol/L (136-145) Potassium Level 5.1 mmol/L (3.5-5.1) Chloride Level 102 mmol/L (98-107) Carbon Dioxide Level 26 mmol/L (21-32) Anion Gap 4 (6-14) Blood Urea Nitrogen 29 mg/dL (7-20) Creatinine 0.8 mg/dL (0.6-1.0) Estimated GFR (Cockcroft-Gault) 87.4 Glucose Level 117 mg/dL (70-99) Calcium Level 8.6 mg/dL (8.5-10.1) Medications Current Medications Potassium Chloride/Sodium Chloride 1,000 ml @ 80 mls/hr [id number] IV Last administered on 02/21/20at 02:14; Start 02/20/20 at 19:00; Stop 02/21/20 at 11:41; Status DC Ondansetron HCl (Zofran) 4 mg PRN Q4HRS PRN IVP NAUSEA/VOMITING Last administered on 02/20/20at 18:10; Start 02/20/20 at 17:45; Stop 02/21/20 at 09:58; Status DC Pantoprazole Sodium (PROTONIX VIAL for IV PUSH) 40 mg DAILYAC IVP Last administered on 02/22/20at 09:44; Start 02/21/20 at 07:30 Hydromorphone HCl (Dilaudid) 2 mg PRN Q4HRS PRN IVP PAIN Last administered on 02/22/20at 09:45; Start 02/20/20 at 17:45 Lorazepam (Ativan Inj) 1 mg PRN Q6HRS PRN IVP ANXIETY / AGITATION Last administered on 02/20/20at 18:09; Start 02/20/20 at 17:45; Stop 02/21/20 at 09:58; Status DC Lidocaine HCl (Xylocaine 2% Topical 5gm Tube) 1 sang 1X ONCE TP Last administered on 02/20/20at 21:10; Start 02/20/20 at 17:45; Stop 02/20/20 at 17:53; Status DC Zinc Oxide (Zinc Oxide 20% Topical) 1 sang PRN BID PRN TP SKIN PROTECTION Last administered on 02/22/20 05:14; Start 02/20/20 at 17:45 Acetaminophen (Tylenol) 650 mg PRN Q6HRS PRN PO MILD PAIN 1-3; Start 02/20/20 at 17:45 Zolpidem Tartrate (Ambien) 5 mg PRN QHS PRN PO INSOMNIA Last administered on 02/21/20at 22:24; Start 02/20/20 at 17:45 Sertraline HCl (Zoloft) 50 mg DAILY PO Last administered on 02/22/20at 09:00; Start 02/21/20 at 09:00 Alteplase, Recombinant (Cathflo For Central Catheter Clearance) 1 mg 1X ONCE INT CAT Last administered on 02/21/20at 10:12; Start 02/21/20 at 09:00; Stop 02/21/20 at 09:01; Status DC Info (Tpn Per Pharmacy) 1 each PRN DAILY PRN MC SEE COMMENTS Last administered on 02/21/20at 11:51; Start 02/21/20 at 09:15 Ondansetron HCl (Zofran) 4 mg Q6HRS IVP Last administered on 02/22/20 06:10; Start 02/21/20 at 11:00 Lorazepam (Ativan) 0.5 mg PRN Q6HRS PRN PO ANXIETY / AGITATION Last administered on 02/22/20at 05:11; Start 02/21/20 at 10:00 Sodium Chloride 120 meq/Sodium Acetate 120 meq/ Potassium Chloride 30 meq/ Potassium Phosphate 22 mmol/ Magnesium Sulfate 24 meq/Calcium Gluconate 10 meq/ Multivitamins 10 ml/Chromium/ Copper/Manganese/ Seleni/Zn 1 ml/ Total Parenteral Nutrition/Amino Acids/Dextrose/ Fat Emulsion Intravenous 1,920 ml @ 80 mls/hr TPN CONT IV Last administered on 02/21/20at 22:24; Start 02/21/20 at 22:00; Stop 02/22/20 at 21:59 Potassium Chloride/Sodium Chloride 1,000 ml @ 80 mls/hr [id number] IV Last administered on 02/21/20at 12:23; Start 02/21/20 at 11:45; Stop 02/21/20 at 21:59; Status DC Active Scripts Active Dilaudid (Hydromorphone Hcl) 2 Mg Tablet 1 Tab PO Q6HRS PRN MDD 4 Tablet(s) Pantoprazole Sodium (Pantoprazole Sodium) 40 Mg Tablet.dr 40 Mg PO DAILYAC Tylenol (Acetaminophen) 325 Mg Tablet 650 Mg PO PRN Q6HRS PRN Zinc Oxide 56.7 Gm Oint...g. 1 Sang TP BID Ambien (Zolpidem Tartrate) 5 Mg Tablet 5 Mg PO PRN QHS PRN 30 Days [Tpn Per Pharmacy] 1 EACH Each 1 Each MC PRN DAILY PRN TPN at 85cc/hour Sertraline Hcl 50 Mg Tablet 50 Mg PO DAILY 30 Days Lidocaine 35.44 Gm Oint...g. 1 Sang TP BID Reported Ondansetron Hcl 4 Mg Tablet 4 Mg PO PRN Q6HRS PRN Lorazepam 0.5 Mg Tablet 0.5 Mg PO Q6HRS PRN Vitals/I & O Vital Sign - Last 24 Hours 02/21/20 02/21/20 02/21/20 02/21/20 14:22 14:55 15:00 19:00 Temp 97.8 97.7 97.8 97.7 Pulse 89 99 Resp 18 19 17 18 B/P (MAP) 115/68 (84) 157/94 (115) Pulse Ox 100 100 100 99 O2 Delivery Room Air Room Air Room Air Room Air 02/21/20 02/21/20 02/21/20 02/21/20 19:30 20:00 20:00 23:00 Temp 98.6 98.6 Pulse 100 Resp 19 18 B/P (MAP) 145/72 (96) Pulse Ox 100 98 O2 Delivery Room Air Room Air Room Air Room Air 02/22/20 02/22/20 02/22/20 02/22/20 00:23 00:53 03:00 05:11 Temp 98.1 98.1 Pulse 98 Resp 18 B/P (MAP) 112/83 (93) Pulse Ox 98 O2 Delivery Room Air Room Air Room Air Room Air 02/22/20 02/22/20 02/22/20 05:41 07:05 09:45 Temp 98.4 98.4 Pulse 96 Resp 20 B/P (MAP) 135/87 (103) Pulse Ox 99 99 O2 Delivery Room Air Room Air Room Air Intake and Output 02/21/20 02/21/20 02/22/20 15:00 23:00 07:00 Intake Total 600 ml 300 ml 400 ml Balance 600 ml 300 ml 400 ml Justifications for Admission Other Justification Nutrition Consultation Dietary Evaluation: Recommendations by RD: Dietary education by RD, PPN/TPN Comments: REC continue with nutrition care order Expected Outcomes/Goals: maintain current wt Interpretation of weight loss: >5% in 1 month Malnutrition Findings: Muscle Mass (Severe): Severe Depletion Weight Status: Underweight BENITA LUTZ MD Feb 22, 2020 11:21
[2020-02-22] MEDS: TPN PER PHARMACY MC PRN (11:39)
--- NOTE | 2020-02-22 11:41 | NUR ---
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 TPN started 02/21/20 B:Pertinent PMH: long-term TPN LABS: Sodium: 132 Potassium: 5.1 Chloride: 102 Calcium: 8.6 Corrected Calcium: 10.36 Magnesium: 2.1 CO2: 26 SCr: 0.8 Glucose: 117 Albumin: 1.8 AST: 9 ALT: < 6 TPN FORMULA: TPN TYPE: Central Continuous AMINO ACIDS: 90 gm DEXTROSE: 285 gm LIPIDS: 35 gm SODIUM CHLORIDE: 120 mEq SODIUM ACETATE: 120 mEq SODIUM PHOSPHATE: -- mmol POTASSIUM CHLORIDE: 20 mEq POTASSIUM ACETATE: -- mEq POTASSIUM PHOSPHATE: 22 mmol MAGNESIUM: 24 mEq CALCIUM: 10 mEq INSULIN: -- units MULTIPLE VITAMIN: 10 ml TRACE ELEMENTS: 1 ml(s) TPN PLAN: 02/21 decrease KCL to 20meq per R: Change TPN as above Will monitor electrolytes, glucose, and tolerance to TPN. [facility] ROBLES [facility], 02/22/20 1145
--- NOTE | 2020-02-22 13:49 | PDOC2 ---
JULY SUGGS [employer] 02/22/20 1349: CONSULT Date of Consult Date of Consult DATE: 02/22/20 TIME: 13:44 Reason for Consult Reason for Consult: sbo Referring Physician Referring Physician: Dr Cisneros Identification/Chief Complaint Chief Complaint vomiting Source Source: Chart review, Patient History of Present Illness Reason for Visit: Patient known from multiple previous admissions, multiple surgeries in past, Fistula, abscesses On tpn at home, chronic vomiting issues reports tolerated food today, had stool today and yesterday, + flatus Past Medical History Cardiovascular: HTN Pulmonary: No pertinent hx CENTRAL NERVOUS SYSTEM: Other GI: Diverticulosis, GERD, Gastritis, Irritable bowel disease, Peptic Ulcer disease, Other Heme/Onc: Anemia NOS, Cancer, Other Hepatobiliary: No pertinent hx Psych: Anxiety, Depression Musculoskeletal: Osteoarthritis Rheumatologic: No pertinent hx Infectious disease: Other Renal/: Acute renal failure Endocrine: Hypothyroidism Past Surgical History Past Surgical History: Hysterectomy, Colon Resection, Other Family History Family History: Hypertension Social History No ALCOHOL: none Drugs: None Lives: with Family Current Medications Current Medications Current Medications Potassium Chloride/Sodium Chloride 1,000 ml @ 80 mls/hr [id number] IV Last administered on 02/21/20at 02:14; Start 02/20/20 at 19:00; Stop 02/21/20 at 11:41; Status DC Ondansetron HCl (Zofran) 4 mg PRN Q4HRS PRN IVP NAUSEA/VOMITING Last administered on 02/20/20at 18:10; Start 02/20/20 at 17:45; Stop 02/21/20 at 09:58; Status DC Pantoprazole Sodium (PROTONIX VIAL for IV PUSH) 40 mg DAILYAC IVP Last administered on 02/22/20at 09:44; Start 02/21/20 at 07:30 Hydromorphone HCl (Dilaudid) 2 mg PRN Q4HRS PRN IVP PAIN Last administered on 02/22/20at 09:45; Start 02/20/20 at 17:45 Lorazepam (Ativan Inj) 1 mg PRN Q6HRS PRN IVP ANXIETY / AGITATION Last administered on 02/20/20at 18:09; Start 02/20/20 at 17:45; Stop 02/21/20 at 09:58; Status DC Lidocaine HCl (Xylocaine 2% Topical 5gm Tube) 1 sang 1X ONCE TP Last administered on 02/20/20at 21:10; Start 02/20/20 at 17:45; Stop 02/20/20 at 17:53; Status DC Zinc Oxide (Zinc Oxide 20% Topical) 1 sang PRN BID PRN TP SKIN PROTECTION Last administered on 02/22/20at 05:14; Start 02/20/20 at 17:45 Acetaminophen (Tylenol) 650 mg PRN Q6HRS PRN PO MILD PAIN 1-3; Start 02/20/20 at 17:45 Zolpidem Tartrate (Ambien) 5 mg PRN QHS PRN PO INSOMNIA Last administered on 02/21/20at 22:24; Start 02/20/20 at 17:45 Sertraline HCl (Zoloft) 50 mg DAILY PO Last administered on 02/22/20at 09:00; Start 02/21/20 at 09:00 Alteplase, Recombinant (Cathflo For Central Catheter Clearance) 1 mg 1X ONCE INT CAT Last administered on 02/21/20at 10:12; Start 02/21/20 at 09:00; Stop 02/21/20 at 09:01; Status DC Info (Tpn Per Pharmacy) 1 each PRN DAILY PRN MC SEE COMMENTS Last administered on 02/22/20at 11:39; Start 02/21/20 at 09:15 Ondansetron HCl (Zofran) 4 mg Q6HRS IVP Last administered on 02/22/20at 12:29; Start 02/21/20 at 11:00 Lorazepam (Ativan) 0.5 mg PRN Q6HRS PRN PO ANXIETY / AGITATION Last administered on 02/22/20at 05:11; Start 02/21/20 at 10:00 Sodium Chloride 120 meq/Sodium Acetate 120 meq/ Potassium Chloride 30 meq/ Potassium Phosphate 22 mmol/ Magnesium Sulfate 24 meq/Calcium Gluconate 10 meq/ Multivitamins 10 ml/Chromium/ Copper/Manganese/ Seleni/Zn 1 ml/ Total Parenteral Nutrition/Amino Acids/Dextrose/ Fat Emulsion Intravenous 1,920 ml @ 80 mls/hr TPN CONT IV Last administered on 02/21/20at 22:24; Start 02/21/20 at 22:00; Stop 02/22/20 at 21:59 Potassium Chloride/Sodium Chloride 1,000 ml @ 80 mls/hr [id number] IV Last administered on 02/21/20at 12:23; Start 02/21/20 at 11:45; Stop 02/21/20 at 21:59; Status DC Sodium Chloride 120 meq/Sodium Acetate 120 meq/ Potassium Chloride 20 meq/ Potassium Phosphate 22 mmol/ Magnesium Sulfate 24 meq/Calcium Gluconate 10 meq/ Multivitamins 10 ml/Chromium/ Copper/Manganese/ Seleni/Zn 1 ml/ Total Parenteral Nutrition/Amino Acids/Dextrose/ Fat Emulsion Intravenous 1,920 ml @ 80 mls/hr TPN CONT IV ; Start 02/22/20 at 22:00; Stop 02/23/20 at 21:59 Active Scripts Active Dilaudid (Hydromorphone Hcl) 2 Mg Tablet 1 Tab PO Q6HRS PRN MDD 4 Tablet(s) Pantoprazole Sodium (Pantoprazole Sodium) 40 Mg Tablet.dr 40 Mg PO DAILYAC Tylenol (Acetaminophen) 325 Mg Tablet 650 Mg PO PRN Q6HRS PRN Zinc Oxide 56.7 Gm Oint...g. 1 Sang TP BID Ambien (Zolpidem Tartrate) 5 Mg Tablet 5 Mg PO PRN QHS PRN 30 Days [Tpn Per Pharmacy] 1 EACH Each 1 Each MC PRN DAILY PRN TPN at 85cc/hour Sertraline Hcl 50 Mg Tablet 50 Mg PO DAILY 30 Days Lidocaine 35.44 Gm Oint...g. 1 Sang TP BID Reported Ondansetron Hcl 4 Mg Tablet 4 Mg PO PRN Q6HRS PRN Lorazepam 0.5 Mg Tablet 0.5 Mg PO Q6HRS PRN Allergies Allergies: Coded Allergies: Iodinated Contrast Media (Verified Allergy, Severe, Anaphylaxis, 11/08/19) PT HAS BEEN PREMEDICATED BEFORE WITH NO PROBLEMS, 11-27-. vancomycin (Verified Allergy, Severe, Swelling, 11/08/19) Has tolerated PO vancomycin adhesive tape (Verified Allergy, Intermediate, Rash, 11/08/19) silver (Verified Allergy, Intermediate, Rash, Tegaderm film, can have on abd but no where else, 11/08/19) codeine (Verified Adverse Reaction, Severe, Nausea and Vomiting, 11/08/19) ROS General: No: Chills, Other (fevers ) PSYCHOLOGICAL ROS: No: Anxiety, Depression Eyes: No Blurry vision, No Double vision HEENT: No: Sore Throat Hematological and Lymphatic: No: Bleeding Problems, Blood Clots Respiratory: No: Cough, Shortness of breath Cardiovascular: No Chest Pain, No Palpitations Gastrointestinal: Yes Other (see hpi) Genitourinary: No Dysuria, No Hematuria Neurological: No Impaired Coord/balance, No Numbness/Tingling Skin: Yes Other (see hpi) Physical Exam General: Alert, Oriented X3, Cooperative HEENT: Atraumatic, PERRLA Lungs: Clear to auscultation, Normal air movement Heart: Regular rate, Normal S1, Normal S2 Abdomen: Soft, Other (draining wound abdomen, mild ttp abdomen ) Extremities: No clubbing, No cyanosis Skin: No rashes, No breakdown Neuro: Normal speech, Normal tone Psych/Mental Status: Mental status NL, Mood NL Vitals VITALS Vital Signs Date Time Temp Pulse Resp B/P (MAP) Pulse Ox O2 Delivery O2 Flow Rate FiO2 02/22/20 11:18 100 Room Air 02/22/20 11:05 97.7 95 19 118/62 (80) 97.7 Labs Labs Laboratory Tests Test 02/20/20 19:23 02/22/20 06:20 White Blood Count 10.7 x10^3/uL (4.0-11.0) 8.2 x10^3/uL (4.0-11.0) Red Blood Count 4.23 x10^6/uL (3.50-5.40) 3.44 x10^6/uL (3.50-5.40) Hemoglobin 11.4 g/dL (12.0-15.5) 9.2 g/dL (12.0-15.5) Hematocrit 34.1 % (36.0-47.0) 28.1 % (36.0-47.0) Mean Corpuscular Volume 81 fL (79-100) 82 fL (79-100) Mean Corpuscular Hemoglobin 27 pg (25-35) 27 pg (25-35) Mean Corpuscular Hemoglobin Concent 33 g/dL (31-37) 33 g/dL (31-37) Red Cell Distribution Width 19.5 % (11.5-14.5) 18.7 % (11.5-14.5) Platelet Count 700 x10^3/uL (140-400) 508 x10^3/uL (140-400) Neutrophils (%) (Auto) 84 % (31-73) 76 % (31-73) Lymphocytes (%) (Auto) 9 % (24-48) 12 % (24-48) Monocytes (%) (Auto) 6 % (0-9) 8 % (0-9) Eosinophils (%) (Auto) 1 % (0-3) 3 % (0-3) Basophils (%) (Auto) 1 % (0-3) 1 % (0-3) Neutrophils # (Auto) 8.9 x10^3/uL (1.8-7.7) 6.2 x10^3/uL (1.8-7.7) Lymphocytes # (Auto) 0.9 x10^3/uL (1.0-4.8) 1.0 x10^3/uL (1.0-4.8) Monocytes # (Auto) 0.7 x10^3/uL (0.0-1.1) 0.7 x10^3/uL (0.0-1.1) Eosinophils # (Auto) 0.1 x10^3/uL (0.0-0.7) 0.3 x10^3/uL (0.0-0.7) Basophils # (Auto) 0.1 x10^3/uL (0.0-0.2) 0.1 x10^3/uL (0.0-0.2) Sodium Level 132 mmol/L (136-145) 132 mmol/L (136-145) Potassium Level 3.6 mmol/L (3.5-5.1) 5.1 mmol/L (3.5-5.1) Chloride Level 96 mmol/L (98-107) 102 mmol/L (98-107) Carbon Dioxide Level 31 mmol/L (21-32) 26 mmol/L (21-32) Anion Gap 5 (6-14) 4 (6-14) Blood Urea Nitrogen 26 mg/dL (7-20) 29 mg/dL (7-20) Creatinine 1.2 mg/dL (0.6-1.0) 0.8 mg/dL (0.6-1.0) Estimated GFR (Cockcroft-Gault) 54.7 87.4 BUN/Creatinine Ratio 22 (6-20) Glucose Level 115 mg/dL (70-99) 117 mg/dL (70-99) Calcium Level 9.0 mg/dL (8.5-10.1) 8.6 mg/dL (8.5-10.1) Phosphorus Level 3.8 mg/dL (2.6-4.7) Magnesium Level 2.1 mg/dL (1.8-2.4) Total Bilirubin 0.6 mg/dL (0.2-1.0) Aspartate Amino Transf (AST/SGOT) 9 U/L (15-37) Alanine Aminotransferase (ALT/SGPT) < 6 U/L (14-59) Alkaline Phosphatase 136 U/L (46-116) Total Protein 9.1 g/dL (6.4-8.2) Albumin 1.8 g/dL (3.4-5.0) Albumin/Globulin Ratio 0.2 (1.0-1.7) Laboratory Tests Test 02/22/20 06:20 White Blood Count 8.2 x10^3/uL (4.0-11.0) Red Blood Count 3.44 x10^6/uL (3.50-5.40) Hemoglobin 9.2 g/dL (12.0-15.5) Hematocrit 28.1 % (36.0-47.0) Mean Corpuscular Volume 82 fL (79-100) Mean Corpuscular Hemoglobin 27 pg (25-35) Mean Corpuscular Hemoglobin Concent 33 g/dL (31-37) Red Cell Distribution Width 18.7 % (11.5-14.5) Platelet Count 508 x10^3/uL (140-400) Neutrophils (%) (Auto) 76 % (31-73) Lymphocytes (%) (Auto) 12 % (24-48) Monocytes (%) (Auto) 8 % (0-9) Eosinophils (%) (Auto) 3 % (0-3) Basophils (%) (Auto) 1 % (0-3) Neutrophils # (Auto) 6.2 x10^3/uL (1.8-7.7) Lymphocytes # (Auto) 1.0 x10^3/uL (1.0-4.8) Monocytes # (Auto) 0.7 x10^3/uL (0.0-1.1) Eosinophils # (Auto) 0.3 x10^3/uL (0.0-0.7) Basophils # (Auto) 0.1 x10^3/uL (0.0-0.2) Sodium Level 132 mmol/L (136-145) Potassium Level 5.1 mmol/L (3.5-5.1) Chloride Level 102 mmol/L (98-107) Carbon Dioxide Level 26 mmol/L (21-32) Anion Gap 4 (6-14) Blood Urea Nitrogen 29 mg/dL (7-20) Creatinine 0.8 mg/dL (0.6-1.0) Estimated GFR (Cockcroft-Gault) 87.4 Glucose Level 117 mg/dL (70-99) Calcium Level 8.6 mg/dL (8.5-10.1) Assessment/Plan Assessment/Plan clinically stable --eating, stools chronic n/v issues on TPN hostile abdomen, fistula--patient not a surgical candidate ANDERSON LOPEZ MD 02/23/20 0752: CONSULT Assessment/Plan Assessment/Plan Patient well-known to the service. Poor surgical candidate with hostile abdomen, abdominal films showing nonspecific bowel gas pattern now. No surgical plans continue with medical therapy and support JULY SUGGS APRN Feb 22, 2020 13:49 ANDERSON LOPEZ MD Feb 23, 2020 07:52
[2020-02-22 15:05] VITALS: BP 150/69
--- NOTE | 2020-02-22 16:57 | RAD ---
Examination: ACUTE ABDOMEN SERIES History: Pain. Comparison/Correlation: 02/21/2020 CT abdomen and pelvis without contrast Findings: Upright portable frontal view of the chest and abdomen obtained. Frontal view of the abdomen. Supine obtained. Right internal jugular catheter terminates overlying the superior cavoatrial junction. Heart size and pulmonary vasculature are normal. No pneumothorax. No infiltrate or pleural effusion. Right upper quadrant surgical clips are present. Suture material involving the right mid abdomen noted. Surgical clips are numerous within the pelvis bilaterally. Postoperative screws involving the femoral heads noted. Fluid levels are present within nondistended bowel. No extraluminal gas. Impression: No infiltrates. Fluid in nondistended bowel. No obstruction. Electronically signed by: Samuel Chambers MD (02/22/2020 4:54 PM) [facility]
[2020-02-22 19:00] VITALS: BP 135/62
[2020-02-22] MEDS ORDERED: [UNRECOGNIZED DRUG - OTHER] IV SCH (22:00)
[2020-02-22] MEDS ORDERED: DEXTROSE 70% IV SCH (22:00)
[2020-02-22] MEDS ORDERED: AMINO ACID IV SCH (22:00)
[2020-02-22] MEDS ORDERED: TOTAL PARENTERAL NUTRITION IV SCH (22:00)
[2020-02-22 23:00] VITALS: BP 161/97
[2020-02-23] MEDS: ONDANSETRON PF 4 MG/2 ML VIAL. IVP SCH ×4 (00:37→16:59)
[2020-02-23] MEDS: ZINC OXIDE 20% TOPICAL OINTMENT 28GM TUBE. TP PRN (02:59)
[2020-02-23] MEDS: LORazepam 0.5 MG TABLET PO PRN ×3 (03:04→19:11)
[2020-02-23 03:08] VITALS: BP 139/80
[2020-02-23] MEDS: HYDROmorphone 2 MG/ML VIAL IVP PRN ×5 (03:24→21:09)
[2020-02-23] MEDS: PANTOPRAZOLE IV PUSH 40 MG VIAL. IVP SCH (06:10)
[2020-02-23 06:39] LABS: CALCIUM 8.7 mg/dL (8.5-10.1); CREATININE 0.7 mg/dL (0.6-1.0); GFR 101.9; POTASSIUM 4.5 mmol/L (3.5-5.1)
[2020-02-23 07:05] VITALS: BP 164/82
[2020-02-23] MEDS: SERTRALINE 50 MG TABLET. PO SCH (08:08)
--- NOTE | 2020-02-23 09:15 | PDOC ---
SURGICAL PROGRESS NOTE DATE: 02/23/20 TIME: 09:13 Subjective still with pain , vomiting -chronic Vital Signs Vital Signs Date Time Temp Pulse Resp B/P (MAP) Pulse Ox O2 Delivery O2 Flow Rate FiO2 02/23/20 08:08 Room Air 02/23/20 07:05 97.7 86 19 164/82 (109) 100 97.7 I&O Intake and Output 02/23/20 07:00 Output Total 200 ml Balance -200 ml Output Urine Total 200 ml # Voids 3 # Bowel Movements 1 General: Alert, Oriented X3, Cooperative Abdomen: Soft, Other (fistula draining) Labs Laboratory Tests Test 02/22/20 06:20 02/23/20 06:15 White Blood Count 8.2 x10^3/uL (4.0-11.0) Red Blood Count 3.44 x10^6/uL (3.50-5.40) Hemoglobin 9.2 g/dL (12.0-15.5) Hematocrit 28.1 % (36.0-47.0) Mean Corpuscular Volume 82 fL (79-100) Mean Corpuscular Hemoglobin 27 pg (25-35) Mean Corpuscular Hemoglobin Concent 33 g/dL (31-37) Red Cell Distribution Width 18.7 % (11.5-14.5) Platelet Count 508 x10^3/uL (140-400) Neutrophils (%) (Auto) 76 % (31-73) Lymphocytes (%) (Auto) 12 % (24-48) Monocytes (%) (Auto) 8 % (0-9) Eosinophils (%) (Auto) 3 % (0-3) Basophils (%) (Auto) 1 % (0-3) Neutrophils # (Auto) 6.2 x10^3/uL (1.8-7.7) Lymphocytes # (Auto) 1.0 x10^3/uL (1.0-4.8) Monocytes # (Auto) 0.7 x10^3/uL (0.0-1.1) Eosinophils # (Auto) 0.3 x10^3/uL (0.0-0.7) Basophils # (Auto) 0.1 x10^3/uL (0.0-0.2) Sodium Level 132 mmol/L (136-145) 137 mmol/L (136-145) Potassium Level 5.1 mmol/L (3.5-5.1) 4.5 mmol/L (3.5-5.1) Chloride Level 102 mmol/L (98-107) 104 mmol/L (98-107) Carbon Dioxide Level 26 mmol/L (21-32) 29 mmol/L (21-32) Anion Gap 4 (6-14) 4 (6-14) Blood Urea Nitrogen 29 mg/dL (7-20) 26 mg/dL (7-20) Creatinine 0.8 mg/dL (0.6-1.0) 0.7 mg/dL (0.6-1.0) Estimated GFR (Cockcroft-Gault) 87.4 101.9 Glucose Level 117 mg/dL (70-99) 115 mg/dL (70-99) Calcium Level 8.6 mg/dL (8.5-10.1) 8.7 mg/dL (8.5-10.1) Laboratory Tests Test 02/23/20 06:15 Sodium Level 137 mmol/L (136-145) Potassium Level 4.5 mmol/L (3.5-5.1) Chloride Level 104 mmol/L (98-107) Carbon Dioxide Level 29 mmol/L (21-32) Anion Gap 4 (6-14) Blood Urea Nitrogen 26 mg/dL (7-20) Creatinine 0.7 mg/dL (0.6-1.0) Estimated GFR (Cockcroft-Gault) 101.9 Glucose Level 115 mg/dL (70-99) Calcium Level 8.7 mg/dL (8.5-10.1) Assessment/Plan xrays without obstruction symptom management not a surgical candidate will sign off Justicifation of Admission Dx: Justifications for Admission: Justification of Admission Dx: Yes JULY SUGGS APRN Feb 23, 2020 09:15
--- NOTE | 2020-02-23 09:50 | PDOC ---
Date of Service: DATE: 02/23/20 TIME: 09:46 Subjective: Subjective: Pretty drowsy this morning - has been drinking (tea?) but not sure when she vomited last. Objective: Objective: Stools charted. Vital Signs: Vital Signs Date Time Temp Pulse Resp B/P (MAP) Pulse Ox O2 Delivery O2 Flow Rate FiO2 02/23/20 08:08 Room Air 02/23/20 07:05 97.7 86 19 164/82 (109) 100 97.7 Labs: Laboratory Tests Test 02/23/20 06:15 Sodium Level 137 mmol/L Potassium Level 4.5 mmol/L Chloride Level 104 mmol/L Carbon Dioxide Level 29 mmol/L Anion Gap 4 Blood Urea Nitrogen 26 mg/dL Creatinine 0.7 mg/dL Estimated GFR (Cockcroft-Gault) 101.9 Glucose Level 115 mg/dL Calcium Level 8.7 mg/dL Imaging: AAS 02/21 Impression: No infiltrates. Fluid in nondistended bowel. No obstruction. PE: GEN: chronically ill LUNGS: CTAB HEART: RRR ABD: non-distended, towels w/ abdominal drainage NEURO/PSYCH: lethargic A/P: Chronic/recurrent vomiting - on home TPN H/o diverticular disease, many surgeries, chronic fistulae w/ increased drainage -- Continue same, will return later w/ Dr. Ovalle. Justicifation of Admission Dx: Justifications for Admission: Justification of Admission Dx: Yes MIESHA RICO Feb 23, 2020 09:50
--- NOTE | 2020-02-23 10:19 | NUR ---
CLARICE following. Discussed with RN, surgery consulted - no surgical plans per chart. GI following. CLARICE will continue to follow. Addendum: 02/23/20 at 1243 by DEYANIRA ONEIL CLARICE faxed clinicals to [facility]. Confirmed with [facility] pt has TPN at home for possible discharge over the weekend. 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
--- NOTE | 2020-02-23 10:56 | PDOC ---
PROGRESS NOTES Date of Service DATE: 02/23/20 TIME: 10:53 Subjective Subjective sleepy. AAS showed no bowel obstruction. denies vomiting in last 24 hours. will decrease iv prn dilaudid. lab reviewed. Objective Objective Vital Signs Date Time Temp Pulse Resp B/P (MAP) Pulse Ox O2 Delivery O2 Flow Rate FiO2 02/23/20 08:38 Room Air 02/23/20 07:05 97.7 86 19 164/82 (109) 100 97.7 Intake and Output 02/23/20 06:59 Output Total 200 ml Balance -200 ml Output Urine Total 200 ml # Voids 3 # Bowel Movements 1 Physical Exam Abdomen: Normal bowel sounds, Other (several abodminal openings due to enteric cutaneous fustulas) Heart: Regular rate, Normal S1, Normal S2 Extremities: No edema General: Alert HEENT: Atraumatic Lungs: Clear to auscultation Neck: Supple Neuro: Other (sleepy) Psych/Mental Status: Other (sleepy) Skin: No rashes Assessment Assessment 1. Recurrent nausea and vomiting. no evidence of bowel obstruction. suspect she has GERD 2. Gastroesophageal reflux disease with esophagitis. 3. Enterocutaneous fistulas. 4. Enterovesical fistula. 5. Severe protein-calorie malnutrition. 6. Malnutrition. 7. Hyponatremia resolved 8. Anemia of chronic disease. chronic abdominal pain due to abdominal adhesions Plan Plan of Care d/c prn dilaudid continue TPN continue iv protonix and iv zofran anticipate dismissal this weekend Comment Review of Relevant I have reviewed the following items lucila (where applicable) has been applied. Labs Laboratory Tests Test 02/22/20 06:20 02/23/20 06:15 White Blood Count 8.2 x10^3/uL (4.0-11.0) Red Blood Count 3.44 x10^6/uL (3.50-5.40) Hemoglobin 9.2 g/dL (12.0-15.5) Hematocrit 28.1 % (36.0-47.0) Mean Corpuscular Volume 82 fL (79-100) Mean Corpuscular Hemoglobin 27 pg (25-35) Mean Corpuscular Hemoglobin Concent 33 g/dL (31-37) Red Cell Distribution Width 18.7 % (11.5-14.5) Platelet Count 508 x10^3/uL (140-400) Neutrophils (%) (Auto) 76 % (31-73) Lymphocytes (%) (Auto) 12 % (24-48) Monocytes (%) (Auto) 8 % (0-9) Eosinophils (%) (Auto) 3 % (0-3) Basophils (%) (Auto) 1 % (0-3) Neutrophils # (Auto) 6.2 x10^3/uL (1.8-7.7) Lymphocytes # (Auto) 1.0 x10^3/uL (1.0-4.8) Monocytes # (Auto) 0.7 x10^3/uL (0.0-1.1) Eosinophils # (Auto) 0.3 x10^3/uL (0.0-0.7) Basophils # (Auto) 0.1 x10^3/uL (0.0-0.2) Sodium Level 132 mmol/L (136-145) 137 mmol/L (136-145) Potassium Level 5.1 mmol/L (3.5-5.1) 4.5 mmol/L (3.5-5.1) Chloride Level 102 mmol/L (98-107) 104 mmol/L (98-107) Carbon Dioxide Level 26 mmol/L (21-32) 29 mmol/L (21-32) Anion Gap 4 (6-14) 4 (6-14) Blood Urea Nitrogen 29 mg/dL (7-20) 26 mg/dL (7-20) Creatinine 0.8 mg/dL (0.6-1.0) 0.7 mg/dL (0.6-1.0) Estimated GFR (Cockcroft-Gault) 87.4 101.9 Glucose Level 117 mg/dL (70-99) 115 mg/dL (70-99) Calcium Level 8.6 mg/dL (8.5-10.1) 8.7 mg/dL (8.5-10.1) Laboratory Tests Test 02/23/20 06:15 Sodium Level 137 mmol/L (136-145) Potassium Level 4.5 mmol/L (3.5-5.1) Chloride Level 104 mmol/L (98-107) Carbon Dioxide Level 29 mmol/L (21-32) Anion Gap 4 (6-14) Blood Urea Nitrogen 26 mg/dL (7-20) Creatinine 0.7 mg/dL (0.6-1.0) Estimated GFR (Cockcroft-Gault) 101.9 Glucose Level 115 mg/dL (70-99) Calcium Level 8.7 mg/dL (8.5-10.1) Medications Current Medications Potassium Chloride/Sodium Chloride 1,000 ml @ 80 mls/hr [id number] IV Last administered on 02/21/20at 02:14; Start 02/20/20 at 19:00; Stop 02/21/20 at 11:41; Status DC Ondansetron HCl (Zofran) 4 mg PRN Q4HRS PRN IVP NAUSEA/VOMITING Last administered on 02/20/20at 18:10; Start 02/20/20 at 17:45; Stop 02/21/20 at 09:58; Status DC Pantoprazole Sodium (PROTONIX VIAL for IV PUSH) 40 mg DAILYAC IVP Last administered on 02/23/20at 06:10; Start 02/21/20 at 07:30 Hydromorphone HCl (Dilaudid) 2 mg PRN Q4HRS PRN IVP PAIN Last administered on 02/23/20at 08:08; Start 02/20/20 at 17:45 Lorazepam (Ativan Inj) 1 mg PRN Q6HRS PRN IVP ANXIETY / AGITATION Last administered on 02/20/20at 18:09; Start 02/20/20 at 17:45; Stop 02/21/20 at 09:58; Status DC Lidocaine HCl (Xylocaine 2% Topical 5gm Tube) 1 sang 1X ONCE TP Last administered on 02/20/20at 21:10; Start 02/20/20 at 17:45; Stop 02/20/20 at 17:53; Status DC Zinc Oxide (Zinc Oxide 20% Topical) 1 sang PRN BID PRN TP SKIN PROTECTION Last administered on 02/23/20at 02:59; Start 02/20/20 at 17:45 Acetaminophen (Tylenol) 650 mg PRN Q6HRS PRN PO MILD PAIN 1-3; Start 02/20/20 at 17:45 Zolpidem Tartrate (Ambien) 5 mg PRN QHS PRN PO INSOMNIA Last administered on 02/21/20at 22:24; Start 02/20/20 at 17:45 Sertraline HCl (Zoloft) 50 mg DAILY PO Last administered on 02/23/20at 08:08; Start 02/21/20 at 09:00 Alteplase, Recombinant (Cathflo For Central Catheter Clearance) 1 mg 1X ONCE INT CAT Last administered on 02/21/20at 10:12; Start 02/21/20 at 09:00; Stop 02/21/20 at 09:01; Status DC Info (Tpn Per Pharmacy) 1 each PRN DAILY PRN MC SEE COMMENTS Last administered on 02/22/20at 11:39; Start 02/21/20 at 09:15 Ondansetron HCl (Zofran) 4 mg Q6HRS IVP Last administered on 02/23/20at 06:09; Start 02/21/20 at 11:00 Lorazepam (Ativan) 0.5 mg PRN Q6HRS PRN PO ANXIETY / AGITATION Last administered on 02/23/20at 03:04; Start 02/21/20 at 10:00 Sodium Chloride 120 meq/Sodium Acetate 120 meq/ Potassium Chloride 30 meq/ Potassium Phosphate 22 mmol/ Magnesium Sulfate 24 meq/Calcium Gluconate 10 meq/ Multivitamins 10 ml/Chromium/ Copper/Manganese/ Seleni/Zn 1 ml/ Total Parenteral Nutrition/Amino Acids/Dextrose/ Fat Emulsion Intravenous 1,920 ml @ 80 mls/hr TPN CONT IV Last administered on 02/21/20at 22:24; Start 02/21/20 at 22:00; Stop 02/22/20 at 21:59; Status DC Potassium Chloride/Sodium Chloride 1,000 ml @ 80 mls/hr [id number] IV Last administered on 02/21/20at 12:23; Start 02/21/20 at 11:45; Stop 02/21/20 at 21:59; Status DC Sodium Chloride 120 meq/Sodium Acetate 120 meq/ Potassium Chloride 20 meq/ Potassium Phosphate 22 mmol/ Magnesium Sulfate 24 meq/Calcium Gluconate 10 meq/ Multivitamins 10 ml/Chromium/ Copper/Manganese/ Seleni/Zn 1 ml/ Total Parenteral Nutrition/Amino Acids/Dextrose/ Fat Emulsion Intravenous 1,920 ml @ 80 mls/hr TPN CONT IV Last administered on 02/22/20at 22:19; Start 02/22/20 at 22:00; Stop 02/23/20 at 21:59 Active Scripts Active Dilaudid (Hydromorphone Hcl) 2 Mg Tablet 1 Tab PO Q6HRS PRN MDD 4 Tablet(s) Pantoprazole Sodium (Pantoprazole Sodium) 40 Mg Tablet.dr 40 Mg PO DAILYAC Tylenol (Acetaminophen) 325 Mg Tablet 650 Mg PO PRN Q6HRS PRN Zinc Oxide 56.7 Gm Oint...g. 1 Sang TP BID Ambien (Zolpidem Tartrate) 5 Mg Tablet 5 Mg PO PRN QHS PRN 30 Days [Tpn Per Pharmacy] 1 EACH Each 1 Each MC PRN DAILY PRN TPN at 85cc/hour Sertraline Hcl 50 Mg Tablet 50 Mg PO DAILY 30 Days Lidocaine 35.44 Gm Oint...g. 1 Sang TP BID Reported Ondansetron Hcl 4 Mg Tablet 4 Mg PO PRN Q6HRS PRN Lorazepam 0.5 Mg Tablet 0.5 Mg PO Q6HRS PRN Vitals/I & O Vital Sign - Last 24 Hours 02/22/20 02/22/20 02/22/20 02/22/20 11:05 11:18 14:28 15:05 Temp 97.7 98.4 97.7 98.4 Pulse 95 98 Resp 19 19 B/P (MAP) 118/62 (80) 150/69 (96) Pulse Ox 100 100 100 100 O2 Delivery Room Air Room Air Room Air Room Air 02/22/20 02/22/20 02/22/20 02/22/20 15:39 19:00 19:03 19:33 Temp 98.4 98.4 Pulse 109 Resp 18 20 B/P (MAP) 135/62 (86) Pulse Ox 100 100 100 100 O2 Delivery Room Air Room Air Room Air Room Air 02/22/20 02/22/20 02/22/20 02/22/20 20:00 23:00 23:16 23:46 Temp 97.9 97.9 Pulse 125 Resp 18 20 2 B/P (MAP) 161/97 (118) Pulse Ox 100 100 100 O2 Delivery Room Air Room Air Room Air Room Air 02/23/20 02/23/20 02/23/20 02/23/20 03:08 03:24 03:54 07:05 Temp 97.8 97.7 97.8 97.7 Pulse 108 86 Resp 18 20 18 19 B/P (MAP) 139/80 (99) 164/82 (109) Pulse Ox 100 100 100 100 O2 Delivery Room Air Room Air Room Air Room Air 02/23/20 02/23/20 08:08 08:38 O2 Delivery Room Air Room Air Intake and Output 02/22/20 02/22/20 02/23/20 14:59 22:59 06:59 Output Total 200 ml Balance -200 ml Justifications for Admission Other Justification Nutrition Consultation Dietary Evaluation: Recommendations by RD: Dietary education by RD, PPN/TPN Comments: REC continue with nutrition care order Expected Outcomes/Goals: maintain current wt Interpretation of weight loss: >5% in 1 month Malnutrition Findings: Muscle Mass (Severe): Severe Depletion Weight Status: Underweight BENITA LUTZ MD Feb 23, 2020 10:56
[2020-02-23 11:05] VITALS: BP 143/80
[2020-02-23] MEDS ORDERED: LIDOCAINE 2% TOPICAL JELLY 5GM TUBE. TP ONE (12:15)
[2020-02-23] MEDS: TPN PER PHARMACY MC PRN (12:20)
--- NOTE | 2020-02-23 12:21 | NUR ---
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 TPN started 02/21/20 B:Pertinent PMH: long-term TPN LABS: Sodium: 137 Potassium: 4.5 Chloride: 104 Calcium: 8.7 Corrected Calcium: 10.46 Magnesium: 2.1 CO2: 26 SCr: 0.8 Glucose: 115 Albumin: 1.8 TPN FORMULA: TPN TYPE: Central Continuous AMINO ACIDS: 90 gm DEXTROSE: 285 gm LIPIDS: 35 gm SODIUM CHLORIDE: 120 mEq SODIUM ACETATE: 120 mEq SODIUM PHOSPHATE: -- mmol POTASSIUM CHLORIDE: 20 mEq POTASSIUM ACETATE: -- mEq POTASSIUM PHOSPHATE: 22 mmol MAGNESIUM: 24 mEq CALCIUM: 10 mEq INSULIN: -- units MULTIPLE VITAMIN: 10 ml TRACE ELEMENTS: 1 ml(s) TPN PLAN: 02/22 cont same TPN R: Continue TPN Will monitor electrolytes, glucose, and tolerance to TPN. [facility], 02/23/20 [id number]
[2020-02-23 15:05] VITALS: BP 154/78
[2020-02-23 19:30] VITALS: BP 130/70
[2020-02-23] MEDS ORDERED: AMINO ACID IV SCH (22:00)
[2020-02-23] MEDS ORDERED: [UNRECOGNIZED DRUG - OTHER] IV SCH (22:00)
[2020-02-23] MEDS ORDERED: TOTAL PARENTERAL NUTRITION IV SCH (22:00)
[2020-02-23] MEDS ORDERED: DEXTROSE 70% IV SCH (22:00)
[2020-02-23 23:16] VITALS: BP 117/58
[2020-02-24] MEDS: ONDANSETRON PF 4 MG/2 ML VIAL. IVP SCH ×4 (01:21→17:42)
[2020-02-24] MEDS: HYDROmorphone 2 MG/ML VIAL IVP PRN ×6 (01:22→21:46)
[2020-02-24 03:42] VITALS: BP 125/55
[2020-02-24] MEDS: LORazepam 0.5 MG TABLET PO PRN (03:51)
[2020-02-24] MEDS: PANTOPRAZOLE IV PUSH 40 MG VIAL. IVP SCH (06:28)
[2020-02-24 07:00] VITALS: BP 110/60
[2020-02-24] MEDS ORDERED: ALTEPLASE 1MG SYRINGE. INT CAT ONE (07:30)
[2020-02-24] MEDS: SERTRALINE 50 MG TABLET. PO SCH (09:00)
[2020-02-24 10:15] LABS: CALCIUM 8.1 mg/dL (8.5-10.1); CREATININE 0.5 mg/dL (0.6-1.0); GFR 150.3; POTASSIUM 4.2 mmol/L (3.5-5.1)
[2020-02-24 11:00] VITALS: BP 137/81
--- NOTE | 2020-02-24 12:49 | PDOC ---
PROGRESS NOTES Date of Service DATE: 02/24/20 TIME: 12:47 Subjective Subjective no further nausea or vomiting. feels better. lab reviewed. Objective Objective Vital Signs Date Time Temp Pulse Resp B/P (MAP) Pulse Ox O2 Delivery O2 Flow Rate FiO2 02/24/20 11:00 97.9 77 16 137/81 (99) 98 Room Air 97.9 Intake and Output 02/24/20 07:00 # Voids 3 Physical Exam Abdomen: Soft, Other (EC fistulas ) Heart: Regular rate, Normal S1, Normal S2 Extremities: No edema General: Alert HEENT: Atraumatic Lungs: Clear to auscultation Neuro: Normal speech Psych/Mental Status: Mental status NL Skin: No breakdown Assessment Assessment . Recurrent nausea and vomiting. improved no evidence of bowel obstruction. suspect she has GERD 2. Gastroesophageal reflux disease with esophagitis. 3. Enterocutaneous fistulas. 4. Enterovesical fistula. 5. Severe protein-calorie malnutrition. 6. Malnutrition. 7. Hyponatremia resolved 8. Anemia of chronic disease. chronic abdominal pain due to abdominal adhesions Plan Plan of Care dismiss tomorrow continue protonix and zofran analgesics prn Comment Review of Relevant I have reviewed the following items lucila (where applicable) has been applied. Labs Laboratory Tests Test 02/23/20 06:15 02/24/20 09:17 Sodium Level 137 mmol/L (136-145) 137 mmol/L (136-145) Potassium Level 4.5 mmol/L (3.5-5.1) 4.2 mmol/L (3.5-5.1) Chloride Level 104 mmol/L (98-107) 103 mmol/L (98-107) Carbon Dioxide Level 29 mmol/L (21-32) 32 mmol/L (21-32) Anion Gap 4 (6-14) 2 (6-14) Blood Urea Nitrogen 26 mg/dL (7-20) 20 mg/dL (7-20) Creatinine 0.7 mg/dL (0.6-1.0) 0.5 mg/dL (0.6-1.0) Estimated GFR (Cockcroft-Gault) 101.9 150.3 Glucose Level 115 mg/dL (70-99) 76 mg/dL (70-99) Calcium Level 8.7 mg/dL (8.5-10.1) 8.1 mg/dL (8.5-10.1) Laboratory Tests Test 02/24/20 09:17 Sodium Level 137 mmol/L (136-145) Potassium Level 4.2 mmol/L (3.5-5.1) Chloride Level 103 mmol/L (98-107) Carbon Dioxide Level 32 mmol/L (21-32) Anion Gap 2 (6-14) Blood Urea Nitrogen 20 mg/dL (7-20) Creatinine 0.5 mg/dL (0.6-1.0) Estimated GFR (Cockcroft-Gault) 150.3 Glucose Level 76 mg/dL (70-99) Calcium Level 8.1 mg/dL (8.5-10.1) Medications Current Medications Potassium Chloride/Sodium Chloride 1,000 ml @ 80 mls/hr [id number] IV Last administered on 02/21/20at 02:14; Start 02/20/20 at 19:00; Stop 02/21/20 at 11:41; Status DC Ondansetron HCl (Zofran) 4 mg PRN Q4HRS PRN IVP NAUSEA/VOMITING Last administered on 02/20/20at 18:10; Start 02/20/20 at 17:45; Stop 02/21/20 at 09:58; Status DC Pantoprazole Sodium (PROTONIX VIAL for IV PUSH) 40 mg DAILYAC IVP Last administered on 02/24/20at 06:28; Start 02/21/20 at 07:30 Hydromorphone HCl (Dilaudid) 2 mg PRN Q4HRS PRN IVP PAIN Last administered on 02/23/20at 08:08; Start 02/20/20 at 17:45; Stop 02/23/20 at 11:00; Status DC Lorazepam (Ativan Inj) 1 mg PRN Q6HRS PRN IVP ANXIETY / AGITATION Last administered on 02/20/20at 18:09; Start 02/20/20 at 17:45; Stop 02/21/20 at 09:58; Status DC Lidocaine HCl (Xylocaine 2% Topical 5gm Tube) 1 sang 1X ONCE TP Last administered on 02/20/20at 21:10; Start 02/20/20 at 17:45; Stop 02/20/20 at 17:53; Status DC Zinc Oxide (Zinc Oxide 20% Topical) 1 sang PRN BID PRN TP SKIN PROTECTION Last administered on 02/23/20at 02:59; Start 02/20/20 at 17:45 Acetaminophen (Tylenol) 650 mg PRN Q6HRS PRN PO MILD PAIN 1-3; Start 02/20/20 at 17:45 Zolpidem Tartrate (Ambien) 5 mg PRN QHS PRN PO INSOMNIA Last administered on 02/21/20at 22:24; Start 02/20/20 at 17:45 Sertraline HCl (Zoloft) 50 mg DAILY PO Last administered on 02/23/20at 08:08; Start 02/21/20 at 09:00 Alteplase, Recombinant (Cathflo For Central Catheter Clearance) 1 mg 1X ONCE INT CAT Last administered on 02/21/20at 10:12; Start 02/21/20 at 09:00; Stop 02/21/20 at 09:01; Status DC Info (Tpn Per Pharmacy) 1 each PRN DAILY PRN MC SEE COMMENTS Last administered on 02/23/20at 12:20; Start 02/21/20 at 09:15 Ondansetron HCl (Zofran) 4 mg Q6HRS IVP Last administered on 02/24/20at 12:38; Start 02/21/20 at 11:00 Lorazepam (Ativan) 0.5 mg PRN Q6HRS PRN PO ANXIETY / AGITATION Last administered on 02/24/20at 03:51; Start 02/21/20 at 10:00 Sodium Chloride 120 meq/Sodium Acetate 120 meq/ Potassium Chloride 30 meq/ Potassium Phosphate 22 mmol/ Magnesium Sulfate 24 meq/Calcium Gluconate 10 meq/ Multivitamins 10 ml/Chromium/ Copper/Manganese/ Seleni/Zn 1 ml/ Total Parenteral Nutrition/Amino Acids/Dextrose/ Fat Emulsion Intravenous 1,920 ml @ 80 mls/hr TPN CONT IV Last administered on 02/21/20at 22:24; Start 02/21/20 at 22:00; Stop 02/22/20 at 21:59; Status DC Potassium Chloride/Sodium Chloride 1,000 ml @ 80 mls/hr [id number] IV Last administered on 02/21/20at 12:23; Start 02/21/20 at 11:45; Stop 02/21/20 at 21:59; Status DC Sodium Chloride 120 meq/Sodium Acetate 120 meq/ Potassium Chloride 20 meq/ Potassium Phosphate 22 mmol/ Magnesium Sulfate 24 meq/Calcium Gluconate 10 meq/ Multivitamins 10 ml/Chromium/ Copper/Manganese/ Seleni/Zn 1 ml/ Total Parenteral Nutrition/Amino Acids/Dextrose/ Fat Emulsion Intravenous 1,920 ml @ 80 mls/hr TPN CONT IV Last administered on 02/22/20at 22:19; Start 02/22/20 at 22:00; Stop 02/23/20 at 21:59; Status DC Hydromorphone HCl (Dilaudid) 1 mg PRN Q4HRS PRN IVP PAIN Last administered on 02/24/20at 09:46; Start 02/23/20 at 11:00 Lidocaine HCl (Xylocaine 2% Topical 5gm Tube) 1 sang 1X ONCE TP Last adm inistered on 02/23/20at 12:42; Start 02/23/20 at 12:15; Stop 02/23/20 at 12:16; Status DC Sodium Chloride 120 meq/Sodium Acetate 120 meq/ Potassium Chloride 20 meq/ Potassium Phosphate 22 mmol/ Magnesium Sulfate 24 meq/Calcium Gluconate 10 meq/ Multivitamins 10 ml/Chromium/ Copper/Manganese/ Seleni/Zn 1 ml/ Total Parenteral Nutrition/Amino Acids/Dextrose/ Fat Emulsion Intravenous 1,920 ml @ 80 mls/hr TPN CONT IV Last administered on 02/23/20at 22:00; Start 02/23/20 at 22:00; Stop 02/24/20 at 21:59 Alteplase, Recombinant (Cathflo For Central Catheter Clearance) 1 mg 1X ONCE INT CAT Last administered on 02/24/20at 07:31; Start 02/24/20 at 07:30; Stop 02/24/20 at 07:31; Status DC Active Scripts Active Dilaudid (Hydromorphone Hcl) 2 Mg Tablet 1 Tab PO Q6HRS PRN MDD 4 Tablet(s) Pantoprazole Sodium (Pantoprazole Sodium) 40 Mg Tablet.dr 40 Mg PO DAILYAC Tylenol (Acetaminophen) 325 Mg Tablet 650 Mg PO PRN Q6HRS PRN Zinc Oxide 56.7 Gm Oint...g. 1 Sang TP BID Ambien (Zolpidem Tartrate) 5 Mg Tablet 5 Mg PO PRN QHS PRN 30 Days [Tpn Per Pharmacy] 1 EACH Each 1 Each PRN DAILY PRN TPN at 85cc/hour Sertraline Hcl 50 Mg Tablet 50 Mg PO DAILY 30 Days Lidocaine 35.44 Gm Oint...g. 1 Sang TP BID Reported Ondansetron Hcl 4 Mg Tablet 4 Mg PO PRN Q6HRS PRN Lorazepam 0.5 Mg Tablet 0.5 Mg PO Q6HRS PRN Vitals/I & O Vital Sign - Last 24 Hours 02/23/20 02/23/20 02/23/20 02/23/20 13:13 15:05 16:59 17:29 Temp 97.8 97.8 Pulse 88 Resp 19 B/P (MAP) 154/78 (103) Pulse Ox 100 O2 Delivery Room Air Room Air Room Air Room Air 02/23/20 02/23/20 02/23/20 02/23/20 19:30 20:00 21:09 21:39 Temp 97.8 97.8 Pulse 88 Resp 20 B/P (MAP) 130/70 (90) Pulse Ox 95 95 100 O2 Delivery Room Air Room Air Room Air Room Air 02/23/20 02/24/20 02/24/20 02/24/20 23:16 01:22 01:52 03:42 Temp 97.7 98.1 97.7 98.1 Pulse 89 86 Resp 18 20 18 B/P (MAP) 117/58 (77) 125/55 (78) Pulse Ox 100 100 100 100 O2 Delivery Room Air Room Air Room Air Room Air 02/24/20 02/24/20 02/24/20 02/24/20 05:28 05:58 07:00 09:46 Temp 97.7 97.7 Pulse 78 Resp 20 16 B/P (MAP) 110/60 (77) Pulse Ox 98 96 O2 Delivery Room Air Room Air Room Air Room Air 02/24/20 02/24/20 10:16 11:00 Temp 97.9 97.9 Pulse 77 Resp 16 B/P (MAP) 137/81 (99) Pulse Ox 98 O2 Delivery Room Air Room Air Justifications for Admission Other Justification Nutrition Consultation Dietary Evaluation: Recommendations by RD: Dietary education by RD, PPN/TPN Comments: REC continue with nutrition care order Expected Outcomes/Goals: maintain current wt Interpretation of weight loss: >5% in 1 month Malnutrition Findings: Muscle Mass (Severe): Severe Depletion Weight Status: Underweight BENITA LUTZ MD Feb 24, 2020 12:49
[2020-02-24] MEDS: TPN PER PHARMACY MC PRN (13:14)
--- NOTE | 2020-02-24 13:14 | NUR ---
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 TPN started 02/21/20 B:Pertinent PMH: long-term TPN Height: 5 feet, 4 inches Weight: 36.8 kg Current diet: Regular LABS: Sodium: 137 Potassium: 4.2 Chloride: 103 Calcium: 8.1 Corrected Calcium: 9.86 Magnesium: 2.1 CO2: 32 SCr: 0.5 Glucose: 76 Albumin: 1.8 AST: 9 ALT: < 6 TPN FORMULA: TPN TYPE: Central Continuous AMINO ACIDS: 90 gm DEXTROSE: 285 gm LIPIDS: 35 gm SODIUM CHLORIDE: 120 mEq SODIUM ACETATE: 120 mEq POTASSIUM CHLORIDE: 20 mEq POTASSIUM PHOSPHATE: 22 mmol MAGNESIUM: 24 mEq CALCIUM: 10 mEq MULTIPLE VITAMIN: 10 ml TRACE ELEMENTS: 1 ml(s) TPN PLAN: Continue same TPN. -BMP in AM R: Continue same TPN formula Will monitor electrolytes, glucose, and tolerance to TPN. SWAPNIL SANTOS [facility], 02/24/20 2500
[2020-02-24 15:00] VITALS: BP 101/62
[2020-02-24 19:00] VITALS: BP 108/60
[2020-02-24] MEDS ORDERED: AMINO ACID IV SCH (22:00)
[2020-02-24] MEDS ORDERED: TOTAL PARENTERAL NUTRITION IV SCH (22:00)
[2020-02-24] MEDS ORDERED: DEXTROSE 70% IV SCH (22:00)
[2020-02-24] MEDS ORDERED: [UNRECOGNIZED DRUG - OTHER] IV SCH (22:00)
[2020-02-24 23:00] VITALS: BP 120/62
[2020-02-25] MEDS: ONDANSETRON PF 4 MG/2 ML VIAL. IVP SCH ×3 (00:09→12:50)
[2020-02-25] MEDS: LORazepam 0.5 MG TABLET PO PRN ×2 (00:09→12:50)
[2020-02-25] MEDS: HYDROmorphone 2 MG/ML VIAL IVP PRN ×3 (02:12→10:39)
[2020-02-25 03:00] VITALS: BP 112/67
[2020-02-25 07:00] VITALS: BP 109/49
[2020-02-25] MEDS: SERTRALINE 50 MG TABLET. PO SCH (08:10)
[2020-02-25] MEDS: PANTOPRAZOLE IV PUSH 40 MG VIAL. IVP SCH (08:10)
[2020-02-25 10:28] VITALS: BP 117/68
[2020-02-25 10:59] LABS: CALCIUM 8.3 mg/dL (8.5-10.1); CREATININE 0.5 mg/dL (0.6-1.0); GFR 150.3; POTASSIUM 3.3 mmol/L (3.5-5.1)
--- NOTE | 2020-02-25 11:08 | PDOC ---
PROGRESS NOTES Date of Service DATE: 02/25/20 TIME: 11:06 Subjective Subjective nurse notes no further vomiting. feels well. has some belching. potassium 3.3. and will give iv kcl now Objective Objective Vital Signs Date Time Temp Pulse Resp B/P (MAP) Pulse Ox O2 Delivery O2 Flow Rate FiO2 02/25/20 10:39 Room Air 02/25/20 10:28 98.7 86 18 117/68 (84) 100 98.7 Intake and Output 02/25/20 07:00 Intake Total 500 ml Output Total 200 ml Balance 300 ml Intake Oral 500 ml Output Urine Total 200 ml # Voids 3 Physical Exam Abdomen: Soft, Other (several openings from EC fistulas. not distended) Heart: Regular rate, Normal S1, Normal S2 Extremities: No edema General: Alert HEENT: Atraumatic Lungs: Clear to auscultation Neuro: Normal speech Psych/Mental Status: Mental status NL Skin: No rashes Assessment Assessment . Recurrent nausea and vomiting. resolved no evidence of bowel obstruction. suspect she has GERD 2. Gastroesophageal reflux disease with esophagitis. 3. Enterocutaneous fistulas. 4. Enterovesical fistula. 5. Severe protein-calorie malnutrition. 6. Malnutrition. 7. Hyponatremia resolved 8. Anemia of chronic disease. chronic abdominal pain due to abdominal adhesions hypokalemia Plan Plan of Care iv kcl switch to oral protonx and oral prn zofran dismiss today with home TPN and home health Comment Review of Relevant I have reviewed the following items lucila (where applicable) has been applied. Labs Laboratory Tests Test 02/24/20 09:17 02/25/20 10:35 Sodium Level 137 mmol/L (136-145) 139 mmol/L (136-145) Potassium Level 4.2 mmol/L (3.5-5.1) 3.3 mmol/L (3.5-5.1) Chloride Level 103 mmol/L (98-107) 102 mmol/L (98-107) Carbon Dioxide Level 32 mmol/L (21-32) 34 mmol/L (21-32) Anion Gap 2 (6-14) 3 (6-14) Blood Urea Nitrogen 20 mg/dL (7-20) 14 mg/dL (7-20) Creatinine 0.5 mg/dL (0.6-1.0) 0.5 mg/dL (0.6-1.0) Estimated GFR (Cockcroft-Gault) 150.3 150.3 Glucose Level 76 mg/dL (70-99) 87 mg/dL (70-99) Calcium Level 8.1 mg/dL (8.5-10.1) 8.3 mg/dL (8.5-10.1) Laboratory Tests Test 02/25/20 10:35 Sodium Level 139 mmol/L (136-145) Potassium Level 3.3 mmol/L (3.5-5.1) Chloride Level 102 mmol/L (98-107) Carbon Dioxide Level 34 mmol/L (21-32) Anion Gap 3 (6-14) Blood Urea Nitrogen 14 mg/dL (7-20) Creatinine 0.5 mg/dL (0.6-1.0) Estimated GFR (Cockcroft-Gault) 150.3 Glucose Level 87 mg/dL (70-99) Calcium Level 8.3 mg/dL (8.5-10.1) Medications Current Medications Potassium Chloride/Sodium Chloride 1,000 ml @ 80 mls/hr [id number] IV Last administered on 02/21/20at 02:14; Start 02/20/20 at 19:00; Stop 02/21/20 at 11:41; Status DC Ondansetron HCl (Zofran) 4 mg PRN Q4HRS PRN IVP NAUSEA/VOMITING Last administered on 02/20/20at 18:10; Start 02/20/20 at 17:45; Stop 02/21/20 at 09:58; Status DC Pantoprazole Sodium (PROTONIX VIAL for IV PUSH) 40 mg DAILYAC IVP Last administered on 02/25/20at 08:10; Start 02/21/20 at 07:30 Hydromorphone HCl (Dilaudid) 2 mg PRN Q4HRS PRN IVP PAIN Last administered on 02/23/20at 08:08; Start 02/20/20 at 17:45; Stop 02/23/20 at 11:00; Status DC Lorazepam (Ativan Inj) 1 mg PRN Q6HRS PRN IVP ANXIETY / AGITATION Last administered on 02/20/20at 18:09; Start 02/20/20 at 17:45; Stop 02/21/20 at 09:58; Status DC Lidocaine HCl (Xylocaine 2% Topical 5gm Tube) 1 sang 1X ONCE TP Last administered on 02/20/20at 21:10; Start 02/20/20 at 17:45; Stop 02/20/20 at 17:53; Status DC Zinc Oxide (Zinc Oxide 20% Topical) 1 sang PRN BID PRN TP SKIN PROTECTION Last administered on 02/23/20at 02:59; Start 02/20/20 at 17:45 Acetaminophen (Tylenol) 650 mg PRN Q6HRS PRN PO MILD PAIN 1-3; Start 02/20/20 at 17:45 Zolpidem Tartrate (Ambien) 5 mg PRN QHS PRN PO INSOMNIA Last administered on 02/21/20at 22:24; Start 02/20/20 at 17:45 Sertraline HCl (Zoloft) 50 mg DAILY PO Last administered on 02/25/20at 08:10; Start 02/21/20 at 09:00 Alteplase, Recombinant (Cathflo For Central Catheter Clearance) 1 mg 1X ONCE INT CAT Last administered on 02/21/20at 10:12; Start 02/21/20 at 09:00; Stop 02/21/20 at 09:01; Status DC Info (Tpn Per Pharmacy) 1 each PRN DAILY PRN MC SEE COMMENTS Last administered on 02/24/20at 13:14; Start 02/21/20 at 09:15 Ondansetron HCl (Zofran) 4 mg Q6HRS IVP Last administered on 02/25/20at 06:16; Start 02/21/20 at 11:00 Lorazepam (Ativan) 0.5 mg PRN Q6HRS PRN PO ANXIETY / AGITATION Last administered on 02/25/20at 00:09; Start 02/21/20 at 10:00 Sodium Chloride 120 meq/Sodium Acetate 120 meq/ Potassium Chloride 30 meq/ Potassium Phosphate 22 mmol/ Magnesium Sulfate 24 meq/Calcium Gluconate 10 meq/ Multivitamins 10 ml/Chromium/ Copper/Manganese/ Seleni/Zn 1 ml/ Total Parenteral Nutrition/Amino Acids/Dextrose/ Fat Emulsion Intravenous 1,920 ml @ 80 mls/hr TPN CONT IV Last administered on 02/21/20at 22:24; Start 02/21/20 at 22:00; Stop 02/22/20 at 21:59; Status DC Potassium Chloride/Sodium Chloride 1,000 ml @ 80 mls/hr [id number] IV Last administered on 02/21/20at 12:23; Start 02/21/20 at 11:45; Stop 02/21/20 at 21:59; Status DC Sodium Chloride 120 meq/Sodium Acetate 120 meq/ Potassium Chloride 20 meq/ Potassium Phosphate 22 mmol/ Magnesium Sulfate 24 meq/Calcium Gluconate 10 meq/ Multivitamins 10 ml/Chromium/ Copper/Manganese/ Seleni/Zn 1 ml/ Total Parenteral Nutrition/Amino Acids/Dextrose/ Fat Emulsion Intravenous 1,920 ml @ 80 mls/hr TPN CONT IV Last administered on 02/22/20at 22:19; Start 02/22/20 at 22:00; Stop 02/23/20 at 21:59; Status DC Hydromorphone HCl (Dilaudid) 1 mg PRN Q4HRS PRN IVP PAIN Last administered on 02/25/20at 10:39; Start 02/23/20 at 11:00 Lidocaine HCl (Xylocaine 2% Topical 5gm Tube) 1 sang 1X ONCE TP Last administered on 02/23/20at 12:42; Start 02/23/20 at 12:15; Stop 02/23/20 at 12:16; Status DC Sodium Chloride 120 meq/Sodium Acetate 120 meq/ Potassium Chloride 20 meq/ Potassium Phosphate 22 mmol/ Magnesium Sulfate 24 meq/Calcium Gluconate 10 meq/ Multivitamins 10 ml/Chromium/ Copper/Manganese/ Seleni/Zn 1 ml/ Total Parenteral Nutrition/Amino Acids/Dextrose/ Fat Emulsion Intravenous 1,920 ml @ 80 mls/hr TPN CONT IV Last administered on 02/23/20at 22:00; Start 02/23/20 at 22:00; Stop 02/24/20 at 21:59; Status DC Alteplase, Recombinant (Cathflo For Central Catheter Clearance) 1 mg 1X ONCE INT CAT Last administered on 02/24/20at 07:31; Start 02/24/20 at 07:30; Stop 02/24/20 at 07:31; Status DC Sodium Chloride 120 meq/Sodium Acetate 120 meq/ Potassium Chloride 20 meq/ Potassium Phosphate 22 mmol/ Magnesium Sulfate 24 meq/Calcium Gluconate 10 meq/ Multivitamins 10 ml/Chromium/ Copper/Manganese/ Seleni/Zn 1 ml/ Total Parenteral Nutrition/Amino Acids/Dextrose/ Fat Emulsion Intravenous 1,920 ml @ 80 mls/hr TPN CONT IV Last administered on 02/24/20at 21:31; Start 02/24/20 at 22:00; Stop 02/25/20 at 21:59 Active Scripts Active Dilaudid (Hydromorphone Hcl) 2 Mg Tablet 1 Tab PO Q6HRS PRN MDD 4 Tablet(s) Pantoprazole Sodium (Pantoprazole Sodium) 40 Mg Tablet.dr 40 Mg PO DAILYAC Tylenol (Acetaminophen) 325 Mg Tablet 650 Mg PO PRN Q6HRS PRN Zinc Oxide 56.7 Gm Oint...g. 1 Sang TP BID Ambien (Zolpidem Tartrate) 5 Mg Tablet 5 Mg PO PRN QHS PRN 30 Days [Tpn Per Pharmacy] 1 EACH Each 1 Each MC PRN DAILY PRN TPN at 85cc/hour Sertraline Hcl 50 Mg Tablet 50 Mg PO DAILY 30 Days Lidocaine 35.44 Gm Oint...g. 1 Sang TP BID Reported Ondansetron Hcl 4 Mg Tablet 4 Mg PO PRN Q6HRS PRN Lorazepam 0.5 Mg Tablet 0.5 Mg PO Q6HRS PRN Vitals/I & O Vital Sign - Last 24 Hours 02/24/20 02/24/20 02/24/20 02/24/20 13:47 14:17 15:00 17:43 Temp 98.2 98.2 Pulse 94 Resp 18 B/P (MAP) 101/62 (75) Pulse Ox 100 O2 Delivery Room Air Room Air Room Air Room Air 02/24/20 02/24/20 02/24/20 02/24/20 18:13 19:00 20:00 21:46 Temp 98.2 98.2 Pulse 96 Resp 18 16 B/P (MAP) 108/60 (76) Pulse Ox 100 100 O2 Delivery Room Air Room Air Room Air Room Air 02/24/20 02/24/20 02/25/20 02/25/20 22:16 23:00 02:12 02:42 Temp 98.7 98.7 Pulse 94 Resp 16 18 16 16 B/P (MAP) 120/62 (81) Pulse Ox 100 99 99 99 O2 Delivery Room Air Room Air Room Air Room Air 02/25/20 02/25/20 02/25/20/13/20 03:00 06:16 06:46 07:00 Temp 98.0 98.0 98.0 98.0 Pulse 90 85 Resp 18 16 16 18 B/P (MAP) 112/67 (82) 109/49 (69) Pulse Ox 98 98 98 98 O2 Delivery Room Air Room Air Room Air Room Air 02/25/20 02/25/20 02/25/20 08:00 10:28 10:39 Temp 98.7 98.7 Pulse 86 Resp 18 B/P (MAP) 117/68 (84) Pulse Ox 100 O2 Delivery Room Air Room Air Room Air Intake and Output 02/24/20 02/24/20 02/25/20 15:00 23:00 07:00 Intake Total 200 ml 300 ml Output Total 200 ml Balance 200 ml 100 ml Justifications for Admission Other Justification Nutrition Consultation Dietary Evaluation: Recommendations by RD: Dietary education by RD, PPN/TPN Comments: REC continue with nutrition care order Expected Outcomes/Goals: maintain current wt Interpretation of weight loss: >5% in 1 month Malnutrition Findings: Muscle Mass (Severe): Severe Depletion Weight Status: Underweight BENITA LUTZ MD Feb 25, 2020 11:08
--- NOTE | 2020-02-25 11:13 | SNU/HH DC ---
DISCHARGE WITH HOME HEALTH DISCHARGE INFORMATION: Discharge Date: Feb 25, 2020 Final Diagnosis: enterocutaneous fistulas and GERD and chronic abdominal pain due to adhesions Condition on Discharge: Stable CODE STATUS: Code Status: Full HOME HEALTH: Face to Face: I certify this patient is under my care and that I, or a nurse practitioner or physician's automotive parts counter assistant working with me, had a face to face encounter that meets the physician face to face encounter requirements with this patient on [02/25/20]. RN For Eval/Treatment: Yes Pt Meets Homebound Status: Limited distance walking POST DISCHARGE ORDERS: Activity Instructions for Disc: Activity as tolerated Weight Bearing Status after Di: As tolerated Bathing Instructions: Shower-keep dressing dry DIET AFTER DISCHARGE: TPN at 85 cc/hour. same formula as before admission Wound/Incision Care: Change dressing, Reinforce dressing PRN CHECKS AFTER DISCHARGE: Checks after discharge: Check blood press - daily, Check your Temp as needed, Weigh Yourself Daily FOLLOW-UP: PCP to follow Home Health: dr. cisneros Follow up with: dr. cisneros later this week Additional Instructions: continue same TPN prior to admission at 80cc/hour. cbc and cmp and magnesium and phosphorus every Wednesday and fax results to dr. Cisneros fax [phone] TREATMENT/EQUIPMENT ORDERS: Adaptive Equipment Issued: None CERTIFICATION STATEMENT: Certification Statement: Certification Statement: Based on the above finding, I certify that this patient is confined to the home and needs intermittent residential care, physical therapy and/or speech therapy, or continues to need occupational therapy.~ This patient is under my care, and I have initiated the establishment of the plan of care.~ This patient will be followed by myself or a community physician who will periodically review the plan of care. Home Meds Active Scripts Hydromorphone Hcl (DILAUDID) 2 Mg Tablet, 1 TAB PO Q6HRS PRN for pain MDD 4 Tablet(s), #30 TAB 0 Refills Prov:BENIAT CISNEROS MD 07/18/19 Pantoprazole Sodium (PANTOPRAZOLE SODIUM ) 40 Mg Tablet.dr 40 MG PO DAILYAC for reflux esophagitis, #30 TAB.SR Prov:BENITA CISNEROS MD 07/18/19 Acetaminophen (TYLENOL) 325 Mg Tablet, 650 MG PO PRN Q6HRS PRN for MILD PAIN / TEMP, #30 TAB Prov:BENITA CISNEROS MD 01/03/19 Zinc Oxide (ZINC OXIDE) 56.7 Gm Oint...g., 1 WANDY TP BID for abdominal skin excoriation, #30 GR Prov:BENITA CISNEROS MD 07/11/18 Zolpidem Tartrate (AMBIEN) 5 Mg Tablet, 5 MG PO PRN QHS PRN for INSOMNIA for 30 Days, TAB Prov:BENITA CISNEROS MD 06/23/18 [Tpn Per Pharmacy] 1 EACH EACH No Conflict Check, 1 EACH PRN DAILY PRN for SEE COMMENTS TPN at 85cc/hour Prov:BENITA CISNEROS MD 06/23/18 Sertraline Hcl (SERTRALINE HCL) 50 Mg Tablet, 50 MG PO DAILY for 30 Days, #30 TAB Prov:BENITA CISNEROS MD 01/05/17 Lidocaine (LIDOCAINE) 35.44 Gm Oint...g., 1 WANDY TP BID, #30 Prov:BENITA CISNEROS MD 12/18/15 Reported Medications Ondansetron Hcl (ONDANSETRON HCL) 4 Mg Tablet, 4 MG PO PRN Q6HRS PRN for NAUSEA 07/12/19 Lorazepam (LORAZEPAM) 0.5 Mg Tablet, 0.5 MG PO Q6HRS PRN for ANXIETY, TAB 08/31/16 BENITA CISNEROS MD Feb 25, 2020 11:13
[2020-02-25] MEDS ORDERED: POTASSIUM CHLORIDE 20MEQ 100 ML IV ONE (11:15)
--- NOTE | 2020-02-25 11:20 | PDOC ---
Provider Note Date of Service: DATE: 02/25/20 TIME: 11:19 Provider Note discharge summary dictated # [id number] Justifications for Admission Other Justification BENITA LUTZ MD Feb 25, 2020 11:20
--- NOTE | 2020-02-25 11:36 | DS ---
DATE OF DISCHARGE: 02/25/2020 CONSULTANTS: Include Dr. Ovalle and Dr. Tomlinson. FINAL DIAGNOSES: 1. Recurrent nausea and vomiting and belching secondary to gastroesophageal reflux disease. 2. Chronic abdominal pain secondary to abdominal adhesions. 3. Multiple enterocutaneous fistulas. 4. Reflux esophagitis with esophagitis. 5. Enterovesical fistula. 6. Severe protein-calorie malnutrition. 7. Hyponatremia. 8. Hypokalemia. 9. Anemia of chronic disease. HOSPITAL COURSE: The patient is a 64-year-old -Chinese female with a history of enterocutaneous fistula and enterovesical fistula, maintained on home health with home total parenteral nutrition with a visiting nurse through a PICC line, who has chronic abdominal pain secondary to adhesions from previous surgery for attempted repair for the enterocutaneous fistulas, was admitted to [facility] from my office on 02/20/2020 with a several day history of nausea, vomiting and belching. She does take Protonix 40 mg p.o. daily at home and Zofran 4 mg p.o. every 6 hours p.r.n. at home. She was admitted to the hospital. She was started on Protonix 40 mg IV daily and Zofran 4 mg IV every 6 hours p.r.n. and received Dilaudid 2 mg IV every 4 hours p.r.n., reduced to 1 mg IV every 4 hours p.r.n. with good pain control. Nausea and vomiting resolved. She still has some belching. She was seen in consultation by Dr. Tomlinson and felt that there was no evidence of bowel obstruction and Dr. Ovalle for GI. CAT scan of the abdomen and pelvis showed no new abnormality. She does have evidence of several enterocutaneous fistulas. She had an acute abdominal series, which showed no evidence of bowel obstruction. She did not have any further nausea and vomiting per the nurse in the last 24 hours and she will be switched to oral Protonix and oral Zofran 4 mg p.o. every 6 hours p.r.n. She will be dismissed to home with home health today with Ambien 5 mg at bedtime p.r.n., Zofran 4 mg p.o. every 6 hours p.r.n., Tylenol 650 mg every 6 hours p.r.n., sertraline 50 mg every day, Protonix 40 mg every day, lorazepam 0.5 mg p.o. every 6 hours p.r.n., lidocaine ointment followed by zinc oxide applied topically to the abdominal wall b.i.d., Dilaudid 2 mg p.o. q.i.d. p.r.n. and TPN at 80 mL an hour continuously. She will have a CBC, CMP, magnesium and phosphorus every Wednesday with results faxed to Dr. Cisneros and this will be done by [facility]. BENITA CISNEROS MD DR: [id number] JOB#: [id number] / [id number]
[2020-02-25 14:27] VITALS: BP 142/85
== END 2020-02-25 15:20 | disposition home health service (06) | DRG 391 ==
LOC: 4 NORTH 17:20
PROVIDERS: ADMIT Internal Medicine; ATTEND Internal Medicine
DX: K21.0 Gastro-esophageal reflux disease with esophagitis (principal); E43 Unspecified severe protein-calorie malnutrition; N32.1 Vesicointestinal fistula; E87.1 Hypo-osmolality and hyponatremia; Z68.1 Body mass index [BMI] 19.9 or less, adult; K66.0 Peritoneal adhesions (postprocedural) (postinfection); C53.9 Malignant neoplasm of cervix uteri, unspecified; D63.8 Anemia in other chronic diseases classified elsewhere; E03.9 Hypothyroidism, unspecified; E87.6 Hypokalemia; F41.9 Anxiety disorder, unspecified; G89.29 Other chronic pain; I12.9 Hypertensive chronic kidney disease with stage 1 through stage 4 chronic kidney disease, or unspecified chronic kidney disease; N18.9 Chronic kidney disease, unspecified; Z82.49 Family history of ischemic heart disease and other diseases of the circulatory system; Z86.19 Personal history of other infectious and parasitic diseases; Z86.718 Personal history of other venous thrombosis and embolism; Z87.11 Personal history of peptic ulcer disease; Z87.19 Personal history of other diseases of the digestive system; Z90.49 Acquired absence of other specified parts of digestive tract; Z90.710 Acquired absence of both cervix and uterus; F32.9 Major depressive disorder, single episode, unspecified; M19.90 Unspecified osteoarthritis, unspecified site; Z88.8 Allergy status to other drugs, medicaments and biological substances; Z79.899 Other long term (current) drug therapy
CPT/HCPCS: 36415; 71045; 74022; 74176; 80048; 80053; 83735; 84100; 85025; 93005; C9113; J0610; J1170; J2060; J2405; J2997; J3475; J3480; J3490; G0378

== ENCOUNTER → 2020-04-29 | Outpatient (CLI) | payer MEDICARE ==
[~2020-04-29] MED LIST changes: +ALTEPLASE 1MG SYRINGE. INT CAT ONE; +AMLO-186 PO; +AMLO-187 PO; -AMLO10TA8 PO; -AMLO5TAB10 PO
[2020-04-29 11:31] LABS: HEMATOCRIT 24.7 % (36.0-47.0); HEMOGLOBIN 7.9 g/dL (12.0-15.5)
[2020-04-29 13:40] VITALS: BP 102/65
[2020-04-29 13:42] VITALS: BP 93/60
[2020-04-29 14:42] VITALS: BP 101/66
[2020-04-29 15:30] VITALS: BP 107/75
[2020-04-29 15:44] LABS: HEMATOCRIT 27.7 % (36.0-47.0)
== END ==
LOC: OPS 10:40
PROVIDERS: ATTEND Internal Medicine
DX: D64.9 Anemia, unspecified (principal); F41.9 Anxiety disorder, unspecified; I12.9 Hypertensive chronic kidney disease with stage 1 through stage 4 chronic kidney disease, or unspecified chronic kidney disease; N18.9 Chronic kidney disease, unspecified; K21.9 Gastro-esophageal reflux disease without esophagitis; E03.9 Hypothyroidism, unspecified; F32.9 Major depressive disorder, single episode, unspecified; M19.90 Unspecified osteoarthritis, unspecified site; Z85.41 Personal history of malignant neoplasm of cervix uteri; Z87.891 Personal history of nicotine dependence; Z79.01 Long term (current) use of anticoagulants; Z90.49 Acquired absence of other specified parts of digestive tract; Z90.710 Acquired absence of both cervix and uterus
CPT/HCPCS: 36415; 36430; 36593; 85014; 85018; 86850; 86900; 86901; 86920; J2997; P9016; 36591; 96374